=== PATIENT | female | born 1955 | race Caucasian/White ===

== ENCOUNTER → 2017-06-08 12:39 | Outpatient (CLI) | payer BC, SELFPAY | PROVIDERS: PCP Nurse Practitioner; Visit Provider Internal Medicine Cardiovascular Disease | DX: R00.2 Palpitations (principal); I11.9 Hypertensive heart disease without heart failure; G47.33 Obstructive sleep apnea (adult) (pediatric) | CPT/HCPCS: 93225; 93226 ==

== ENCOUNTER → 2017-10-25 11:35 | Outpatient (CLI) | payer MEDICARE, SELFPAY ==
[2017-10-25 13:09] LABS: Anion Gap 11.9 mEq/L (5-15); Blood Urea Nitrogen 18 mg/dL (7-18); Calcium 9.6 mg/dL (8.5-10.1); Carbon Dioxide 30 mmol/L (21.0-32.0); Chloride 105 mmol/L (98-107); Creatinine,Serum 0.77 mg/dL (0.55-1.02); Estimated Glomerular Filt Rate 76 ml/min (>60); GFR (African American) 93 ML/MIN (>60); Glucose 163 mg/dL (74-106); Potassium 4.9 mmoL/L (3.5-5.1); Sodium 142 mmol/L (136-145)
== END ==
PROVIDERS: Visit Provider Internal Medicine Cardiovascular Disease
DX: E78.2 Mixed hyperlipidemia (principal); I10 Essential (primary) hypertension; R06.09 Other forms of dyspnea
CPT/HCPCS: 36415; 80048; 83880

== ENCOUNTER 2018-08-06 10:52 | Outpatient (RCR) | payer MEDICARE, SELFPAY | END 2018-08-06 10:55 | disposition home or self-care (01) | LOC: PT 10:52 | DX: M96.1 Postlaminectomy syndrome, not elsewhere classified (principal) ==

== ENCOUNTER 2018-10-07 10:00 | Outpatient (RCR) | payer MEDICARE, SELFPAY | END 2018-10-07 10:05 | disposition home or self-care (01) | LOC: PT 10:00 | DX: M96.1 Postlaminectomy syndrome, not elsewhere classified (principal) | CPT/HCPCS: 97010; 97033; 97035; 97110; 97140; 97163 ==

== ENCOUNTER 2019-09-22 14:47 | Emergency (ER) | payer MEDICARE, SELFPAY ==
--- NOTE | 2019-09-22 15:07 | XR_ITS ---
PROCEDURE: XR TIBIA FIBULA LT 2V CLINICAL INDICATION: fall COMPARISON: No exams were available for comparison FINDINGS: There is no fracture, dislocation, or soft tissue abnormalities. IMPRESSION: No acute findings. Dictated by: Elijah Lama 09/22/2019 16:03 Electronically signed by Elijah Lama in [place] 09/22/2019 16:03
--- NOTE | 2019-09-22 15:07 | XR_ITS ---
PROCEDURE: XR ANKLE LT MIN 3V CLINICAL INDICATION: fall COMPARISON: No exams were available for comparison FINDINGS: There are several punctate curvilinear bone chips within the soft tissues distal to the fibula. Ankle mortise is intact. There is soft tissue edema overlying the lateral malleolus.. Prominent calcaneal spurs are noted. IMPRESSION: Probable subacute avulsion fractures from the tip of the fibula with overlying soft tissue edema Dictated by: Elijah Lama 09/22/2019 16:02 Electronically signed by Elijah Lama in [place] 09/22/2019 16:02
[2019-09-22 15:10] VITALS: BP 138/72; PULSE 76; RESP 18; TEMP 36.8; O2SAT 96; BMI 32.1
--- NOTE | 2019-09-22 15:18 | HMH.EDUTC ---
[facility] [place] Disposition Clinical Impression: Avulsion fracture of ankle Qualifiers: Encounter type: initial encounter Fracture type: closed Laterality: left Qualified Code(s): S82.892A - Other fracture of left lower leg, initial encounter for closed fracture Disposition: Home, Self-Care Condition on Discharge: Good Instructions: How to Choose and Use a Walker, DI for Avulsion Fracture, How To Perform RICE (Rest, Ice, Compress, Elevate) Additional Instructions: *No weight bearing Use walker to ambulate and get around *RICE, Rest the extremity, Ice 15-20 minutes 3-4 times daily, Compress- wear the iain wrap as discussed as much as possible to help reduce swelling and pain, Elevate the extremity when at rest *Iain wrap/Walking boot is for support and help control swelling, use it except in the shower. Be sure that is not to tight but not to loose either *Elevate when resting *Ibuprofen every 6-8 hours as needed for pain an inflammation. If need something more can take Tylenol in between doses of Ibuprofen to help Immediately follow up with your family doctor for new or worsening of symptoms, or no noticeable improvement over the next 3-5 days Follow up [address] Han in her office in the [facility] on SundaySeptember 28 at 1540 Follow up with family doctor if needed Straight to ER if any life threatening symptoms Referrals: Provider,Referral, [Primary Care Provider] - Chandni Han DPM [Staff Physician] - 09/29/19 3:40 pm Time of Disposition: 16:05 Medical Decision Making - Abrahan Inquiry Pt receiving controlled substance: No bArahan was queried for this patient: No Vital Signs: 09/22/19 15:10 Temperature 98.3 F Temperature Source Oral Pulse Rate [Radial] 76 Respiratory Rate 18 Blood Pressure [Right Arm] 138/72 Blood Pressure Mean [Right Arm] 94 Blood Pressure Source [Right Arm] Automatic Cuff Blood Pressure Position [Right Arm] Sitting 02 Sat by Pulse Oximetry 96 Oxygen Delivery Method Room Air Orders (Tests/Meds): ORDERS Category Date Time Status Ankle XR - Left minimum 3 Views [XR ankle LT min 3V] Exams 09/22/19 15:07 Taken Stat XR tibia fibula LT 2V Stat Exams 09/22/19 15:07 Taken - Radiology Data #1 Image(s): Ankle Image Reviewed: Yes I reviewed the patient's radiology image Avulsion fracture of lateral malleous #2 Image(s): Tib/Fib Image Reviewed: Yes I reviewed the patient's radiology image Preliminary Findings: No Fracture Seen - Physician Consults Physician Consulted: Emely Time: 15:39 Reason -: Podiatry Eval/Care Comment/Response: Spoke with Kimberly Han office and Dr Han viewed xray and agreed with avulsion fx of left lateral malleous, advised place in walking boot, crutches/walker no weight bearing and they would see her in the office on SundaySeptember 28 at 1540 [facility] [place] HPI - General Stated complaint: ao left foot fall 2:30 09/22/19 Time Seen by Provider: 09/22/19 15:18 Mode of Arrival: Wheelchair Source of Information: Patient Limitations: No Limitations Description of Symptoms (Recalled from Triage Doc. by RN): Stepped in a hole and hurt left ankle HEENT Symptoms (Recalled from RN notes): No Resp Symptoms (Recalled from RN notes): No Skin Symptoms (Recalled from RN notes): No MS Symptoms (Recalled from RN notes): Yes Functional Status (Recalled from RN notes): wnl - History of Present Illness Provider Complaint: [place] and twisted her left ankle and fell States that she felt something pop in her ankle and when she fell she got some scratches on her right leg States that pain is in her left ankle with a large knot on it and lower leg so she came in to get checked Denies any other injury - Related Data Home Medications Medication Instructions Recorded Confirmed tramadol 50 mg tablet 50 mg PO TID tab 04/04/17 08/07/19 trazodone 50 mg tablet 50 mg PO QHS
[2019-09-22 16:09] VITALS: BP 138/72; PULSE 76; RESP 18; TEMP 36.8; O2SAT 96
== END 2019-09-22 16:10 | disposition home or self-care (01) ==
PROVIDERS: Emergency Provider Nurse Practitioner
DX: S98.01 Complete traumatic amputation of foot at ankle level (principal); W17.2XXA Fall into hole, initial encounter; Y92.89 Other specified places as the place of occurrence of the external cause; E11.9 Type 2 diabetes mellitus without complications; E78.5 Hyperlipidemia, unspecified; I10 Essential (primary) hypertension; Z90.79 Acquired absence of other genital organ(s); Z88.0 Allergy status to penicillin; Z88.8 Allergy status to other drugs, medicaments and biological substances
CPT/HCPCS: 29515; 73590; 73610; 99201; 99203

== ENCOUNTER → 2019-10-27 11:08 | Outpatient (CLI) | payer MEDICARE, SELFPAY ==
--- NOTE | 2019-10-27 11:15 | XR_ITS ---
PROCEDURE: XR ANKLE WT BEARING LT MIN 3V CLINICAL INDICATION: fracture follow up COMPARISON: XR ANKLE LT MIN 3V from 09/22/2019 FINDINGS: There is a nondisplaced avulsion fracture involving the tip of the lateral malleolus not significantly changed IMPRESSION: No change nondisplaced fracture at the tip of the lateral malleolus with good alignment Dictated by: Cem Murillo MD 10/27/2019 23:17 Electronically signed by Cem Murillo MD in [place] 10/27/2019 23:17
== END ==
PROVIDERS: PCP Nurse Practitioner; Visit Provider Podiatrist
DX: T14.8XXA Other injury of unspecified body region, initial encounter; S82.832A Other fracture of upper and lower end of left fibula, initial encounter for closed fracture
CPT/HCPCS: 73610

== ENCOUNTER → 2019-12-29 11:44 | Outpatient (CLI) | payer MEDICARE, SELFPAY ==
--- NOTE | 2019-12-29 11:48 | XR_ITS ---
PROCEDURE: XR FOOT WT BEARING LT 3V CLINICAL INDICATION: pain COMPARISON: No exams were available for comparison FINDINGS: There is diffuse osteopenia. There is some cortical thickening involving the proximal aspect of the 2nd metatarsal medially nonspecific but could be seen with an old fracture. There is a type 1 os navicularis. There is a small calcaneal spur and there are enthesophytes at the Achilles insertion. Other findings:None. IMPRESSION: Diffuse osteopenia. Possible old fracture at the 2nd metatarsal among other nonacute findings Dictated by: Cem Murillo MD 12/29/2019 14:41 Cem Murillo MD in [place] 12/29/2019 14:43
--- NOTE | 2019-12-29 11:48 | XR_ITS ---
PROCEDURE: XR ANKLE WT BEARING LT MIN 3V CLINICAL INDICATION: pain, fracture follow up COMPARISON: CR XR ANKLE LT MIN 3V from 09/22/2019 CR XR ANKLE WT BEARING LT MIN 3V from 10/27/2019 FINDINGS: Avulsion fractures present at the tip of the lateral malleolus nondisplaced and not significantly changed. There is diffuse osteopenia. IMPRESSION: No change avulsion fracture at the tip of the lateral malleolus Dictated by: Cem Murillo MD 12/29/2019 14:42 Cem Murillo MD in [place] 12/29/2019 14:42
== END ==
PROVIDERS: PCP Nurse Practitioner; Visit Provider Nurse Practitioner
DX: M25.572 Pain in left ankle and joints of left foot (principal)
CPT/HCPCS: 73610; 73630

== ENCOUNTER 2020-02-19 09:00 | Outpatient (RCR) | payer MEDICARE, SELFPAY | END 2020-02-19 09:05 | disposition home or self-care (01) | LOC: PT 09:00 | PROVIDERS: PCP Nurse Practitioner; Visit Provider Neurological Surgery | DX: D43.4 Neoplasm of uncertain behavior of spinal cord (principal); M54.5 Low back pain; R26.9 Unspecified abnormalities of gait and mobility | CPT/HCPCS: 97010; 97014; 97033; 97035; 97110; 97112; 97140; 97163; 97164; 97760; G0283 ==

== ENCOUNTER 2020-02-19 09:00 | Outpatient (RCR) | payer MEDICARE, SELFPAY ==
--- NOTE | 2019-11-10 15:36 | HMH.PTOPEV ---
PT Outpatient Evaluation Rehab PT Outpatient Evaluation Start: 11/10/19 15:21 Freq: Status: Active Protocol: Document 11/10/19 15:26 AZALE (Rec: 11/10/19 15:36 AZAEL [id number]) Electronically Signed By Kameron Vo, PT 11/10/19 15:26 Outpatient Therapy Subjective History Subjective History Pt presents s/p L lateral malleolus fx (avulsion fx.) cuased by a fall on 09/22/19. Pt reports some lingering L ankle soreness, weakness, and swelling. Pt also reports lumbar spine issue, 'makes my whole left leg hurt and weak. 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 I'm radha to be walking'. Chief Complaint Pain,Swelling,Paresthesia, Weakness Symptom Type Ache,Dull Symptoms Relieved By Rest/Positioning,Ice Symptoms Aggravated By Standing,Walking Prior Functional Limitations Housework,Standing,Walking, Stairs Current Functional Limitations Housework,Standing,Walking, Stairs Symptom Description Intermittent Level of pain today (0-10) 4 Pain scale - at its best (0-10) 4 Pain scale - at its worst (0-10) 6 Ankle/Foot Eval Gait Observation General Gait Pattern Observation Antalgic Gait,Wide Based Gait, Shuffling Step Assistive Device Ambulation Assistive Device Straight Cane Palpation Tenderness left Ankle/Foot Palpation Findings Tenderness Ankle/Foot Palpation Overall Comment 3/4 lateral malleolus, sinus tarsi ROM Ankle/Foot Dorsiflexion w/Knee Flexed +5 Active Range of Motion (degrees) Ankle/Foot Dorsiflexion W/Knee Flexed 0-10 Passive Range Motion (degrees) Ankle/Foot Plantar Flexion Active Range 5-30 of Motion (degrees) Ankle/Foot Plantar Flexion Passive Range 0-30 of Motion (degrees) Ankle/Foot Eversion Active Range of 0-7 Motion (degrees) Ankle/Foot Eversion Passive Range of 0-15 Motion (degrees) Ankle/Foot Inversion Active Range of 0-35 Motion (degrees) Ankle/Foot Inversion Passive Range of 0-40 Motion (degrees) Ankle/Foot ROM Limitations Soft Tissue Tightness MMT Ankle Dorsiflexion Strength Grade 3- Fair- Ankle Plantarflexion Strength Grade 3- Fair- Foot Eversion Strength Grade 3- Fair- Foot Inversion Strength Grade 3- Fair- Outpatient Therapy Assessment Impairments Problems/Impairm
--- NOTE | 2019-12-12 10:44 | HMH.RHREAS ---
Rehab Reassessment Rehab OP Re-assessment Start: 12/12/19 09:58 Freq: Status: Active Protocol: Document 12/12/19 09:59 AZAEL (Rec: 12/12/19 10:44 AZAEL [id number]) Electronically Signed By Kameron Vo, PT 12/12/19 09:59 Rehab Re-assessment Subjective Subjective Pt reports improved L ankle/ foot pain 0/10 on VAS @rest, and 3/10 pain on VAS w/wt. bearing, and reports 40% improvement overall since I Eval Objective Objective Notes AROM: L ANKLE DF 0-5, PF 0-30, INV 0-35, EVR 0-14 MMT: L ANKLE DF 4/5, PF 4-/5, EVR 4-/5, INV 4-/5 TTP: LAT MALL. L 2/4, SINUS TARSI 2/4 GAIT: LEVEL TERRAIN WFL Assessment Progress Assessment Progressing as Expected Assessment Notes PT W/IMPROVED ROM, STRENGTH, AND TTP Patient goals met STG'S 12/09 LTG'S 06/10 Goals Not Met LTG'S 11/10 Plan Plan PT TO CONT. W/SKILLED P.T. TO MAKE FURTHER IMPROVEMENTS IN ROM, STRENGTH, AND TTP TO ALLOW FOR OPTIMAL FUNCTION Frequency of Therapy 1-2X/WK Duration of therapy 3-4WKS Time and Billing Re-Eval Time 15 Re-Eval Billing Units 1 PHYSICIAN CERTIFICATION: I certify the specified therapy services for Gertrudis Gonzalez are required, authorized, and reviewed every 30 days.
--- NOTE | 2020-01-15 10:07 | HMH.RHREAS ---
Rehab Reassessment Rehab OP Re-assessment Start: 12/12/19 09:58 Freq: Status: Active Protocol: Document 01/15/20 10:00 STEFANIEAGATA (Rec: 01/15/20 10:06 [email or web address] [id number]) Electronically Signed By Kameron Vo, PT 01/15/20 10:00 Rehab Re-assessment Subjective Subjective Pt reports improved L ankle/ foot pain 0/10 on VAS @rest, and 3-4/10 pain on VAS w/wt. bearing, and reports 60% improvement overall since I Eval Objective Objective Notes AROM: L ANKLE DF 0-20, PF 0-33 , INV 0-40, EVR 0-20 MMT: L ANKLE DF 4-4+/5, PF 4-/ 5, EVR 4-/5, INV 4-/5 TTP: LAT MALL. L 2/4, SINUS TARSI 2/4 GAIT: LEVEL TERRAIN WFL Assessment Progress Assessment Slower Than Expected Assessment Notes PT W/SLIGHT IMPROVEMENTS IN STRENGTH, AND MARKED IMPROVEMENT IN ROM Patient goals met STG'S 12/09 LTG'S 08/10 Goals Not Met LTG'S 09/10 Plan Plan PT TO CONT. W/SKILLED P.T. TO MAKE FURTHER IMPROVEMENTS IN ROM, STRENGTH, AND TTP TO ALLOW FOR OPTIMAL FUNCTION Frequency of Therapy 1-2X/WK Duration of therapy 2-4WKS Time and Billing Re-Eval Time 15 Re-Eval Billing Units 0 PHYSICIAN CERTIFICATION: I certify the specified therapy services for Gertrudis Gonzalez are required, authorized, and reviewed every 30 days.
== END 2020-02-19 09:05 | disposition home or self-care (01) ==
LOC: PT 09:00
PROVIDERS: PCP Nurse Practitioner; Visit Provider Podiatrist
DX: S82.892D Other fracture of left lower leg, subsequent encounter for closed fracture with routine healing (principal); M25.472 Effusion, left ankle
CPT/HCPCS: 97010; 97014; 97110; 97112; 97140; 97163; 97164; G0283

== ENCOUNTER 2020-02-28 11:06 | Emergency (ER) | payer MEDICARE, SELFPAY ==
[2020-02-28 11:45] VITALS: BP 156/79; PULSE 82; RESP 18; TEMP 36.7; O2SAT 97; BMI 32.3
--- NOTE | 2020-02-28 11:48 | HMH.EDUTC ---
[facility] [place] Disposition Clinical Impression: Exposure to COVID-19 virus Disposition: Home, Self-Care Condition on Discharge: Good Instructions: Preventing the Spread of Coronavirus Discharge Instructions, DI for Nasal Congestion Additional Instructions: *Nasal saline and bulb syringe or nose larry to remove nasal drainage and help with nasal congestion. Hard to eat, drink, or sleep with nasal congestion so important to keep nose cleaned out. *Monitor Temp, Over the counter Motrin or Tylenol as directed/as needed Tylenol every 4 hours and Motrin every 6 hours (as long as your family doctor has told you that you can take it) for fever or pain. and straight to ER if unable to lower temp less than 101.0 after medication given *Warm salt water gargles may help to soothe the throat *Throat Lozenges *Warm fluids like tea with honey may help to soothe the throat *Sleep elevated *Humidifier/Vaporizer Follow up IMMEDIATELY for new or worsening symptoms or no Noticeable improvement over the next 48-72 hours. 911 for difficulty breathing or swallowing You was tested for today for COVID19 your test result should be back in the next 24-48 hours, you may call to the [facility] later today or tomorrow to see if your test results are back and the result [phone] [facility] hours are 9am-9pm You was given a handout with instructions for Self Quarantine and Self isolation for while you wait on test results and what to do if they are positive If you are positive the Health Dept will be contacting you also Referrals: Ev Augustin APRN [Primary Care Provider] - As needed Time of Disposition: 11:55 Medical Decision Making - Abrahan Inquiry Pt receiving controlled substance: No Abrahan was queried for this patient: No Vital Signs: 02/28/20 11:45 Temperature 98.0 F Temperature Source Oral Pulse Rate [Radial] 82 Respiratory Rate 18 Blood Pressure [Right Arm] 156/79 H Blood Pressure Mean [Right Arm] 104 Blood Pressure Source [Right Arm] Automatic Cuff Blood Pressure Position [Right Arm] Sitting 02 Sat by Pulse Oximetry 97 Oxygen Delivery Method Room Air Orders (Tests/Meds): ORDERS Category Date Time Status Covid-19 Nasal PCR ([facility]) Routine Lab 02/28/20 11:45 Ordered [facility] [place] HPI - General Stated complaint: covid test Time Seen by Provider: 02/28/20 11:50 Mode of Arrival: Ambulatory Source of Information: Patient Limitations: No Limitations Description of Symptoms (Recalled from Triage Doc. by RN): covid test, runny nose HEENT Symptoms (Recalled from RN notes): Yes Resp Symptoms (Recalled from RN notes): No Skin Symptoms (Recalled from RN notes): No MS Symptoms (Recalled from RN notes): No Functional Status (Recalled from RN notes): wnl - History of Present Illness Provider Complaint: Patient state that her recently tested positive for COVID States that she has been having some nasal congestion and runny nose but no other symptoms and she wanted to come in and get tested - Related Data Home Medications Medication Instructions Recorded Confirmed tramadol 50 mg tablet 50 mg PO TID tab 04/04/17 02/19/20 trazodone 50 mg tablet 50 mg PO QHS 04/04/17 02/19/20 empagliflozin 25 mg tablet 25 mg PO DAILY 07/26/18 02/19/20 cyclobenzaprine 10 mg tablet 10 mg PO Q8H PRN tab 08/07/19 02/19/20 glimepiride 4 mg tablet 2 mg PO DAILY tab 08/07/19 02/19/20 omeprazole 20 mg capsule,delayed 40 mg PO DAILY cap 08/07/19 02/19/20 release plecanatide 3 mg tablet 3 mg PO DAILY tab 08/07/19 02/19/20 pregabalin 100 mg capsule 100 mg PO Q8H PRN cap 08/07/19 02/19/20 sitagliptin 100 mg tablet 100 mg PO DAILY tab 08/07/19 02/19/20 topiramate 50 mg capsule,extended 50 mg PO BID PRN cap 08/07/19 02/19/20 release 24 hr bethanechol chloride 50 mg tablet 50 mg PO tab 09/29/19 02/19/20 Previous Rx's Medication Instructions Recorded ropinirole 1 mg tablet 1 mg PO QHS #90 tab 01/09/19 diclofenac sodium 1 % topical gel 4 g TOPICAL QID PRN #
[2020-02-28 12:01] VITALS: BP 156/79; PULSE 82; RESP 18; TEMP 36.7; O2SAT 97
--- NOTE | 2020-02-28 17:09 | PC.NURSE ---
Patient notified of positive COVID results. educated on quarantine and treatment of symptoms if they appear.
== END 2020-02-28 12:02 | disposition home or self-care (01) ==
PROVIDERS: Emergency Provider Nurse Practitioner; PCP Nurse Practitioner
DX: U07.1 COVID-19 (principal); E11.9 Type 2 diabetes mellitus without complications; I10 Essential (primary) hypertension; Z79.899 Other long term (current) drug therapy; Z88.0 Allergy status to penicillin; Z88.8 Allergy status to other drugs, medicaments and biological substances
CPT/HCPCS: G0463; 99201; U0003

== ENCOUNTER → 2020-09-15 07:43 | Outpatient (CLI) | payer MEDICARE, SELFPAY ==
--- NOTE | 2020-09-15 07:57 | XR_ITS ---
PROCEDURE: XR FOOT WT BEARING LT 3V CLINICAL INDICATION: increased pain COMPARISON: CR XR FOOT WT BEARING LT 3V from 12/29/2019 FINDINGS: Old healed fracture base of 2nd metatarsal again noted. Diffuse osteopenia. No acute fracture or dislocation. Moderate plantar and posterior calcaneal spurs. IMPRESSION: No acute fracture or dislocation. Old healed fracture base of 2nd metatarsal again noted. Moderate plantar and posterior calcaneal spurs. Dictated by: Pj Trammell MD 09/15/2020 09:20 Pj Trammell MD in [place] 09/15/2020 09:20
== END ==
PROVIDERS: PCP Nurse Practitioner; Visit Provider Podiatrist
DX: M21.372 Foot drop, left foot (principal); M25.372 Other instability, left ankle; M79.672 Pain in left foot; M25.572 Pain in left ankle and joints of left foot
CPT/HCPCS: 73630

== ENCOUNTER 2020-10-12 09:55 | Outpatient (RCR) | payer MEDICARE, SELFPAY ==
--- NOTE | 2020-10-12 10:57 | HMH.PTOPEV ---
PT Outpatient Evaluation Rehab PT Outpatient Evaluation Start: 10/12/20 10:38 Freq: Status: Active Protocol: Document 10/12/20 10:38 NORM (Rec: 10/12/20 10:56 NORM [id number]) Electronically Signed By Pavel Aviles, PT 10/12/20 10:38 Outpatient Therapy Subjective History Subjective History Patient is a 64 year old female presenting to outpatient Pt with reports of L foot/ankle pain starting approximately 1 year ago after inversion ankle sprain/ fracture. 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 Patient referred for L ankle instability and plantar fasciitis. Comorbidities include hx of LS turmor excision, diabetes, HTN and gastroparesis. Chief Complaint Pain,Stiff,Swelling Symptom Type Throb Symptoms Relieved By Rest/Positioning,Heat,Ice, Prescription Meds,Elevation Current Functional Limitations Housework,Standing,Recreation Activity,Walking,Stairs, Balance Symptom Description Constant but Variable Level of pain today (0-10) 4 Pain scale - at its best (0-10) 3 Pain scale - at its worst (0-10) 7 Ankle/Foot Eval Gait Observation General Gait Pattern Observation Antalgic Gait,Decrease Weight Bear (L) Assistive Device Ambulation Assistive Device None Palpation Tenderness left Ankle/Foot Palpation Findings Tenderness Ankle/Foot Palpation Overall Comment M/L malleolus, ATFL 3/4 ROM Ankle/Foot Dorsiflexion w/Knee Extended -4 Active Range Motion (degrees) Ankle/Foot Dorsiflexion w/Knee Extended 5 Passive Range (degrees) Ankle/Foot Plantar Flexion Active Range 50 of Motion (degrees) Ankle/Foot Plantar Flexion Passive Range 55 of Motion (degrees) Ankle/Foot Eversion Active Range of 14 Motion (degrees) Ankle/Foot Eversion Passive Range of 30 Motion (degrees) Ankle/Foot Inversion Active Range of 16 Motion (degrees) Ankle/Foot Inversion Passive Range of 24 Motion (degrees) Great Toe ROM Reason Not Measured Within Functional Limits Accessory Movements Ankle Accessory Movements that Elicit [place] Dorsal [place]us Symptoms Ventral [place] MMT left Ankle Dorsiflexion Strength Gra
== END 2020-10-12 09:59 | disposition home or self-care (01) ==
LOC: PT 09:55
PROVIDERS: PCP Nurse Practitioner; Visit Provider Nurse Practitioner
DX: M25.372 Other instability, left ankle (principal)
CPT/HCPCS: 97163

== ENCOUNTER → 2021-01-04 10:13 | Outpatient (CLI) | payer SELFPAY ==
--- NOTE | 2021-01-04 10:13 | CT_ITS ---
PROCEDURE: CT HEART W CALCIUM SCORE CLINICAL HISTORY: hypertension COMPARISON: No exams were available for comparison TECHNIQUE: Axial images obtained with sagittal and coronal reformats. All CT scans at the facility use one or more dose reduction, viz: automated exposure control, ma/kV adjustment per patient size (including targeted exams where dose is matched to indication, i.e. head), or iterative reconstruction technique. FINDINGS: Coronary artery calcium score is 3 L1. Moderate calcific plaque burden with high cardiovascular disease risk. Aortic valve calcifications also noted. There is some mitral valve annular calcification present as well. There is evidence of old granulomatous disease. A noncalcified nodules present in the right lower lobe posteriorly measuring 6 mm. 3 mm subpleural nodules present in the left lower lobe posteriorly. An additional 2 mm nodules present in the left lower lobe posteriorly noncalcified nodules present in the lingula at 5 mm. IMPRESSION: Moderate calcific plaque burden with high cardiovascular disease risk Mild aortic valve and mitral valve annular calcification Small bilateral pulmonary nodules measuring up to 6 mm in the right lower lobe. Consider six-month chest CT to confirm stability Dictated by: Cem Murillo MD 01/04/2021 18:33 Cem Murillo MD in [facility] 01/04/2021 18:33
== END ==
PROVIDERS: PCP Nurse Practitioner; Visit Provider Internal Medicine Cardiovascular Disease
DX: Z13.6 Encounter for screening for cardiovascular disorders (principal)
CPT/HCPCS: 75571

== ENCOUNTER → 2021-01-04 10:30 | Outpatient (CLI) | payer MEDICARE, SELFPAY ==
--- NOTE | 2021-01-04 | CA_ITS ---
APPROVED REPORT Exam: Pharmacologic Technologist: Maria Del Carmen Mendoza Ht: 5 ft 2 in Wt: 190 lbs BSA: 1.87 m2 HR: 70 bpm BP: 138/73 mmHg Indications: SOA Medical History Medications: Omeprazole,,,,, Glipizide,,,,, Ropinirole,,,,, TopIRAMATE,,,,, Tramadol,,,,, Diclofenac,,,,, BisOPROLOL,,,,, LanTUS,,,,, Cyclobenzaprine,,,,, Trazodone,,,,, Pregabalin,,,,, RoSUVASTATIN,,,,, Stress Test Details Test: LEXISCAN HR Resting HR: 72 bpm Max Heart Rate (APMHR): 156.978385 bpm Max HR Achieved: 91 bpm Target HR (85% APMHR): 132.336209 bpm % of APMHR: 58.33 Recovery HR: 81 bpm BP Resting BP: 138.0/73.0 mmHg Max BP: 147.0/74.0 mmHg Recovery BP: 137.0/69.0 mmHg ECG Resting ECG: Normal sinus rhythm, right axis deviation Clinical Exercise duration: 04:00 min Highest Stage Achieved: Exercise capacity: 1.0 METs Stress ECG Conclusion Symptoms: Mild shortness of air, stomach cramps, lightheaded. No chest pain. Arrhythmias/Ectopy: None ST-T Changes: No significant changes. Conclusion: Unremarkable Lexiscan stress. Myoview images reported separately. Test Summary REST . . . . . . . Resting REST 04:18 . . 72 . 138/ 73 . . Stage 1 . . . . . . . Myoview Injected Stage 1 01:00 . . 89 . . . . Stage 2 01:00 . . 91 . 147/ 74 . . Stage 3 01:00 . . 86 . 144/ 72 . . Stage 4 01:00 . . 86 . 136/ 67 . Stop exercise at 04:00 RECOVERY 01:00 . . 84 . . . . RECOVERY 02:00 . . 84 . 140/ 71 . . RECOVERY 03:00 . . 81 . 137/ 69 . . RECOVERY 03:32 . . 80 . 137/ 69 . . Electronically signed by : Cheko Boucher MD 01/04/2021 22:31:00
--- NOTE | 2021-01-04 10:30 | NM_ITS ---
APPROVED REPORT Exam: Nuclear Stress Test Indication: short of breath..palpitations..fatigue Patient Location: Outpatient Stress Tech: Maria Del Carmen Mendoza NM Tech:Heather Oropeza ARMIN RT(R)(N) Ht: 5 ft 2 in Wt: 189 lbs HR: 70 bpm BP: 138/73 mmHg BSA: 1.87 m2 BMI: 34.5 History: short of breath..palpitations..fatigue Procedure: Patient received a 0.4 mg of intravenous Lexiscan, resting heart rate 70 bpm, resting blood pressure 137/73 mmHg, with Lexiscan maximum heart rate achived was 91 bpm which is Less than 85 % of the maximum predicted heart rate and blood pressure was 147/74 mmHg. With Lexiscan, patient denied any complaint of chest pain. Electrocardiogram Resting electrocardiogram showed sinus rhythm, with Lexiscan there is less than 1.[address] segment depression noted from the baseline EKG. The EKG portion of the Lexiscan is nondiagnostic. Cardiac Stress and Resting SPECT Images: Cardiac Stress and Resting SPECT images were obtained using technetium 99m Myoview 32.9 mCi stress and 10.33 mCi at rest. Gated SPECT for analysis of segmental wall motion and calculation of the ejection fraction also done. Prone images were also obtained. Cardiac stress and rest SPECT images show uniform myocardial activity without segmental perfusion abnormality, computer derived ejection fraction is 65% with no regional wall motion abnormality, right ventricle is normal size and contractility. Conclusion: 1. The EKG portion of the Lexiscan is nondiagnostic. 2. No scintigraphic evidence of reversible ischemia seen, computer derived ejection fraction is 65% with no regional wall motion abnormality, right ventricle is normal size and contractility. 3. Normal Lexiscan Myoview study. Electronically signed by : Cheko Boucher MD 01/04/2021 22:39:09
--- NOTE | 2021-01-04 11:02 | CA_ITS ---
APPROVED REPORT EXAM: Comprehensive 2D, Doppler, and color-flow Echocardiogram Elocution Teacher: Mel Bland RVT Ht: 5 ft 2 in Wt: 190lbs BSA: 1.87 BP: 188/67 mmHg Indications: SOA,CAD,SKELTON 2D Dimensions LVOT 2.08 cm (M/F) 1.5-2.5 LA Volume 33.40 mL LA Volume Index 17.86 mL/m2 (M/F) 16-34 M-Mode Dimensions RVDd 3.01 cm (0.9-2.6) LA Diam 4.33 cm (1.9-4.0) LVDd 4.18 cm (3.5-5.7) Ao Diam 2.92 cm (2.0-3.7) LVDs 2.81 cm (3.5-5.7) IVSd 1.00 cm (0.6-1.1) PWd 0.72 cm (0.6-1.1) EF (Teich) 61.60% FS 32.80% EDV (Teich) 77.70 mL TAPSE 2.56 (<1.7) ESV (Teich) 29.80 mL LV Diastology E Decel Time 150.00 (160-240 msec) E/A Ratio 1.3 MED E' 5.10 (< 7 cm/sec) E'/MED E' Ratio 21.49 (>14) LAT E' 8.60 (<10 cm/sec) E/LAT E' Ratio 12.74 (>14) Mitral Valve MV E Max Henrique. 110.00 (40-130 cm/s) MV A Velocity 85.00 (40-130 cm/s) E/A Ratio 1.29 MV Decel. Time 150.00 (160-240 ms) MV PHT 44.00 ms Pulmonary Valve PV Peak Velocity 82.00 (50-150 cm/s) Left Ventricle Left atrium is mildly enlarged, left ventricle is normal size, mild concentric left ventricular hypertrophy, visually estimated ejection fraction 50% with no regional wall motion abnormality, grade 2 diastolic dysfunction seen with tissue Doppler evidence of raise left atrial pressure. Right Ventricle Right atrium and right ventricle are normal size and contractility. Aortic Valve Aortic valve is minimally thickened and fibrosed, there is no aortic stenosis or aortic insufficiency. Mitral Valve Mitral valve leaflets are minimally thickened, there is no mitral stenosis, there is mild mitral regurgitation. Tricuspid Valve Tricuspid valve grossly normal, there is mild tricuspid regurgitation, tricuspid regurgitation jet velocity is inadequate for calculation of the right ventricular systolic pressure. Pulmonic Valve Pulmonic valve is poorly visualized. Great Vessels Aortic root is normal size. Inferior vena cava is normal size with normal inspiratory collapse. Pericardium No significant pericardial effusion noted. Conclusion 1. Mildly enlarged left atrium, normal left ventricular size, mild concentric left ventricular hypertrophy, visually estimated ejection fraction 50% with no regional wall motion abnormality, grade 2 diastolic dysfunction seen with tissue Doppler evidence of raise left atrial pressure. 2. Mild mitral and tricuspid regurgitation. 3. No significant pericardial effusion noted. 4. Inferior vena cava is mildly enlarged with normal inspiratory collapse. Electronically signed by : Cheko Boucher MD 01/04/2021 22:14:33
== END ==
PROVIDERS: PCP Nurse Practitioner; Visit Provider Internal Medicine Cardiovascular Disease
DX: R06.09 Other forms of dyspnea (principal); I50.30 Unspecified diastolic (congestive) heart failure
CPT/HCPCS: 78452; 93017; 93306; A9502; J2785

== ENCOUNTER → 2021-01-27 15:02 | Outpatient (CLI) | payer MEDICARE, SELFPAY ==
[2021-01-27 16:16] LABS: Anion Gap 14.3 mEq/L (5-15); Blood Urea Nitrogen 14 mg/dl (7-17); Calcium 9.9 mg/dl (8.4-10.2); Carbon Dioxide 28 mmol/L (22.0-30.0); Chloride 102 mmol/L (98-107); Estimated Glomerular Filt Rate 124 ml/min (>60); GFR (African American) 150 ML/MIN (>60); Glucose 133 mg/dl (74-100); Potassium 4.3 mmoL/L (3.5-5.1); Sodium 140 mmol/L (136-145)
[2021-01-27 16:24] LABS: NT Pro Brain Natriuretic Pep. 47.2 pg/mL (0-125)
== END ==
PROVIDERS: Visit Provider Internal Medicine Cardiovascular Disease
DX: E78.2 Mixed hyperlipidemia (principal); G47.33 Obstructive sleep apnea (adult) (pediatric); I11.9 Hypertensive heart disease without heart failure; R06.00 Dyspnea, unspecified; R06.02 Shortness of breath
CPT/HCPCS: 36415; 80048; 83880

== ENCOUNTER → 2022-04-24 16:36 | Outpatient (CLI) | payer MEDICARE, SELFPAY ==
--- NOTE | 2022-04-24 16:42 | XR_ITS ---
PROCEDURE INFORMATION: Exam: XR Chest Exam date and time: 04/24/2022 4:44 PM Age: 66 years old Clinical indication: Cough; Additional info: Cough, dyspnea TECHNIQUE: Imaging protocol: Radiologic exam of the chest. Views: 2 views. COMPARISON: CR CXR CHEST(2 VIEWS-NOT PORTABLE) 12/12/2016 11:56 AM FINDINGS: Lungs: Patchy opacities at the left lung base. Pleural spaces: Unremarkable. No pleural effusion. No pneumothorax. Heart/Mediastinum: Unremarkable. No cardiomegaly. Bones/joints: Unremarkable. IMPRESSION: Patchy opacities at the left lung base may reflect developing pneumonitis or atelectasis.
== END ==
PROVIDERS: PCP Family Medicine; Visit Provider Student in an Organized Health Care Education/Training Program
DX: R05.9 Cough, unspecified (principal); R06.00 Dyspnea, unspecified
CPT/HCPCS: 71046

== ENCOUNTER → 2022-05-04 10:09 | Outpatient (CLI) | payer MEDICARE, SELFPAY ==
[2022-05-04 10:58] LABS: Basophils # 0.2 K/mm3 (0-0.2); Basophils % 2.6 % (0.1-2.0); Eosinophils # 0.2 K/mm3 (0.0-0.4); Eosinophils % 2.5 % (0.1-12.0); Hematocrit 48.1 % (37.0-47.0); Hemoglobin 15.1 g/dL (12.2-16.2); Lymphocytes # 2.2 K/mm3 (0.7-4.5); Lymphocytes % 28.1 % (10-50); Mean Corpuscular HGB Conc 31.4 g/dL (31.8-35.4); Mean Corpuscular Hemoglobin 28.8 pg (27.0-31.2); Mean Corpuscular Volume 91.5 fl (81-99); Mean Platelet Volume 8.3 fl (7.4-10.4); Monocytes # 0.4 K/mm3 (0.1-1.0); Monocytes % 4.5 % (1.7-9.3); Neutrophils # 4.8 K/mm3 (1.8-7.8); Neutrophils % 62.3 % (37.0-80.0); Platelet Count 353 K/mm3 (142-424); Red Blood Count 5.26 M/mm3 (4.20-5.40); Red Cell Distribution Width 13.4 % (11.5-17.5); White Blood Count 7.8 K/mm3 (4.8-10.8)
[2022-05-04 11:02] LABS: Hemoglobin A1C 8.9 % (4.0-6.0)
[2022-05-04 11:13] LABS: Alanine Aminotransferase 92 U/L (12-78); Albumin Level 3.9 g/dl (3.5-5.0); Albumin/Globulin Ratio 1.4 (1.1-1.8); Alkaline Phosphatase 134 U/L (38-126); Aspartate Amino Transferase 54 U/L (14-36); Bilirubin,Total 0.7 mg/dl (0.2-1.3); Blood Urea Nitrogen 16 mg/dl (7-17); Calcium 8.9 mg/dl (8.4-10.2); Carbon Dioxide 32 mmol/L (22.0-30.0); Chloride 105 mmol/L (98-107); Chol/HDL Ratio 4.5 (1-3.5); Cholesterol 216 mg/dl (140-200); Estimated Glomerular Filt Rate 100 ml/min (>60); GFR (African American) 121 ML/MIN (>60); Globulin 2.7 g/dL (1.3-3.2); Glucose 131 mg/dl (74-100); HDL Cholesterol 48 mg/dl (40-60); Sodium 141 mmol/L (136-145); Total Protein,Serum 6.6 g/dl (6.3-8.2); Triglycerides 245 mg/dl (30-150); VLDL Cholesterol 49 mg/dL (0-40)
[2022-05-04 11:23] LABS: Direct LDL Cholesterol 134.61 mg/dL (100-129)
[2022-05-04 11:43] LABS: Thyroid Stimulating Hormone 4.15 uIU/mL (0.465-4.68)
== END ==
PROVIDERS: PCP Family Medicine; Visit Provider Student in an Organized Health Care Education/Training Program
DX: E11.65 Type 2 diabetes mellitus with hyperglycemia (principal); I11.9 Hypertensive heart disease without heart failure; E66.9 Obesity, unspecified; R00.2 Palpitations; Z79.4 Long term (current) use of insulin
CPT/HCPCS: 36415; 80053; 80061; 83036; 84443; 85025

== ENCOUNTER 2022-06-07 08:13 | Day surgery (SDC) | payer MEDICARE, SELFPAY ==
[2022-06-05 14:20] VITALS: BMI 34.2
[2022-06-07 09:32] VITALS: BP 173/83; PULSE 94; RESP 18; TEMP 36.2; O2SAT 95
--- NOTE | 2022-06-07 09:54 | EXP.ANES.CKL ---
[facility] Disclaimer: The information contained in this section may have been updated after the patient was seen, as this information can be updated by other users. Medical History Chest pain Dizziness Edema of lower extremity Hyperlipidemia Hypertension Hypertensive heart disease Palpitations Preoperative clearance Restless sleeper Sleep apnea Somnolence, daytime Surgical History History of back surgery History of hysterectomy Hx of elbow surgery Family History Other Family history of diabetes mellitus type II Family history of hypertension Family hx-kidney disease Social History Smoking Status: Never smoker alcohol intake: never substance use type: denies use current occupational status: disabled Travel in the last 8 weeks: None household members: spouse housing: house lives independently: Yes marital status: education level: college current occupational exposures/hazards: No caffeine: Yes special kris needs: No agree to transfusion: No do you feel safe at home: Yes victim of physical abuse: No victim of emotional abuse: No victim of sexual abuse: No would you like helpful sources: No [facility] Anesthesia Checklist Patient Identification Patient Identification: Arm Band and Verbal (Name & ) Structural Data Admitted From: Home Planned Operative Procedure/s: EGD Consent for Planned Operative Procedure(s) Verified: Yes NPO Status Verified Time NPO: 00:00 Airway Assessment C-Spine Mobility Assessed: Yes TMJ Mobility Assessed: Yes Dentition: Good Dentition Neurological Assessment Level of Consciousness: Awake Hx Seizures: No Numbness or tingling in extremities: No Anesthesia Plan Anesthesia Risk discussed: Yes Anesthesia Plan: Verified ASA Class: III Anesthesia Type: MAC
[2022-06-07 10:00] VITALS: O2SAT 95
--- NOTE | 2022-06-07 10:10 | P.PCN_ITS ---
Procedure: Date: 06/07/22 Patient Date of :: 1955 Procedure Performed:: EGD Indications:: The patient is a 66 year old who presents for EGD evaluation of dyspepsia and feeling of food sticking in epigastric area. She has a history of gastroparesis and is managed thru [facility]. She is to be evaluated soon for a possible gastric pacemaker per patient report. Performing Provider:: Delmar Abbasi MD Referring Provider:: Terrie Henry APRN Sedation:: See RN records Procedure:: The gastroscope was gently passed through the incisoral orifice into the oral cavity and under direct visualization the esophagus was intubated. The endoscope was passed down the esophagus, through the stomach, and into the duodenum. Color, texture, mucosa, and anatomy of the esophagus, stomach, and duodenum were carefully examined with the scope. Findings:: Oropharynx: normal Esophagus: normal. Empiric dilatation was performed with 54F bougie dilatation EG Junction: measured at 39 cm Cardia: small hiatal hernia, insignificant Fundus: normal Body: Minimal gastritis. Biopsy obtained Antrum: Minimal gastritis. Biopsy obtained Duodenal bulb: normal Duodenum (second and third portion): normal Impression: Minimal gastritis Small hiatal hernia Recommendations:: Await pathology results Continue omeprazole 40 mg as prescribed Gastroparesis diet [facility] Complications:: None Estimated blood obtained (mL): 0
[2022-06-07 10:14] VITALS: BP 161/81; PULSE 96; RESP 14; TEMP 36.5; O2SAT 96
[2022-06-07 10:24] VITALS: BP 155/84; PULSE 82; RESP 16; O2SAT 93
[2022-06-07 10:34] VITALS: BP 149/81; PULSE 84; RESP 17; O2SAT 92
[2022-06-07 10:44] VITALS: BP 139/81; PULSE 83; RESP 17; O2SAT 94
[2022-06-08 18:23] LABS: POC Glucose,Bedside 161 (70-110)
== END 2022-06-07 10:44 | disposition home or self-care (01) ==
PROVIDERS: PCP Family Medicine; Visit Provider Internal Medicine
PROC: 0DJ08ZZ Inspection of Upper Intestinal Tract, Via Natural or Artificial Opening Endoscopic (ICD-10-PCS; CPT 43235; principal; 2022-06-07 10:00)
DX: K21.9 Gastro-esophageal reflux disease without esophagitis (principal); R10.13 Epigastric pain; K29.70 Gastritis, unspecified, without bleeding; K44.9 Diaphragmatic hernia without obstruction or gangrene; Z79.899 Other long term (current) drug therapy; E11.9 Type 2 diabetes mellitus without complications
CPT/HCPCS: 43239; 43248; 82962; 88305

== ENCOUNTER → 2022-06-20 07:49 | Outpatient (CLI) | payer MEDICARE, SELFPAY ==
--- NOTE | 2022-06-20 07:52 | US_ITS ---
FINAL REPORT CLINICAL HISTORY: ELEVATED LIVER FUNCTION FINDINGS: RIGHT UPPER QUADRANT ULTRASOUND Sonographic images of the right upper quadrant were obtained. The pancreas is partially obscured. There is fatty infiltration of the liver. Trace sludge is seen in the gallbladder. The common duct is normal. Limited images of the right kidney are normal. IMPRESSION: Fatty liver. Trace sludge in the gallbladder. Reviewed, Interpreted and Dictated by Everett Nails MD Transcribed by Soraya Silva Authenticated and [facility]
== END ==
PROVIDERS: PCP Family Medicine; Visit Provider Nurse Practitioner
DX: R79.89 Other specified abnormal findings of blood chemistry (principal); K76.0 Fatty (change of) liver, not elsewhere classified
CPT/HCPCS: 76705

== ENCOUNTER 2023-09-20 10:21 | Outpatient (CLI) | payer MEDICARE, SELFPAY ==
[2023-09-20 10:14] LABS: Basophils # 0.2 K/mm3 (0-0.2); Basophils % 2.8 % (0.1-2.0); Eosinophils # 0.1 K/mm3 (0.0-0.4); Hematocrit 47.9 % (37.0-47.0); Hemoglobin 15.1 g/dL (12.2-16.2); Lymphocytes # 1.2 K/mm3 (0.7-4.5); Lymphocytes % 19.4 % (10-50); Mean Corpuscular HGB Conc 31.5 g/dL (31.8-35.4); Mean Corpuscular Hemoglobin 29.1 pg (27.0-31.2); Mean Corpuscular Volume 92.6 fl (81-99); Mean Platelet Volume 9.1 fl (7.4-10.4); Monocytes # 0.3 K/mm3 (0.1-1.0); Neutrophils # 4.5 K/mm3 (1.8-7.8); Neutrophils % 70.8 % (37.0-80.0); Platelet Count 320 K/mm3 (142-424); Red Blood Count 5.17 M/mm3 (4.20-5.40); Red Cell Distribution Width 13.7 % (11.5-17.5); White Blood Count 6.4 K/mm3 (4.8-10.8)
[2023-09-20 10:33] LABS: Alanine Aminotransferase 49 U/L (12-78); Albumin Level 4.4 g/dl (3.5-5.0); Albumin/Globulin Ratio 1.3 (1.1-1.8); Alkaline Phosphatase 186 U/L (38-126); Anion Gap 13.6 mEq/L (5-15); Aspartate Amino Transferase 45 U/L (14-36); Bilirubin,Total 0.6 mg/dl (0.2-1.3); Blood Urea Nitrogen 18 mg/dl (7-17); Calcium 10.4 mg/dl (8.4-10.2); Carbon Dioxide 31 mmol/L (22.0-30.0); Chloride 101 mmol/L (98-107); Chol/HDL Ratio 4.3 (1-3.5); Cholesterol 238 mg/dl (140-200); Estimated Glomerular Filt Rate 100 ml/min (>60); GFR (African American) 121 ML/MIN (>60); Globulin 3.3 g/dL (1.3-3.2); Glucose 174 mg/dl (74-100); HDL Cholesterol 55 mg/dl (40-60); Potassium 4.6 mmoL/L (3.5-5.1); Sodium 141 mmol/L (136-145); Total Protein,Serum 7.7 g/dl (6.3-8.2); Triglycerides 195 mg/dl (30-150); Uric Acid 2.8 mg/dl (2.5-6.2); VLDL Cholesterol 39 mg/dL (0-40)
[2023-09-20 10:39] LABS: Hemoglobin A1C 8.1 % (4.0-6.0)
[2023-09-20 10:44] LABS: Direct LDL Cholesterol 149.66 mg/dL (100-129)
[2023-09-20 10:50] LABS: 25-OH Vitamin D, Total 88.3 ng/mL (30-100)
[2023-09-20 11:04] LABS: Thyroid Stimulating Hormone 7.21 uIU/mL (0.465-4.68)
[2023-09-20 11:23] LABS: Vitamin B12 760 pg/mL (239-931)
[2023-09-20 12:57] LABS: Erythrocyte Sedimentation Rate 15 mm/hr (0-30)
[2023-09-21 08:22] LABS: RA Latex Turbid. <10.0 IU/mL (<14.0)
[2023-10-13 10:29] LABS: Antinuclear Antibodies, IFA POSITIVE
== END 2023-09-20 23:59 | disposition home or self-care (01) ==
LOC: LAB.DROPOF 10:21
PROVIDERS: PCP Nurse Practitioner Family; Visit Provider Nurse Practitioner Family
DX: R53.83 Other fatigue (principal); I10 Essential (primary) hypertension; R73.09 Other abnormal glucose; E55.9 Vitamin D deficiency, unspecified; E78.5 Hyperlipidemia, unspecified; Z68.32 Body mass index [BMI] 32.0-32.9, adult
CPT/HCPCS: 80050; 80053; 80061; 82306; 82607; 83036; 84443; 84550; 85025; 85651; 86038; 86431

== ENCOUNTER 2023-10-24 09:53 | Outpatient (CLI) | payer MEDICARE, SELFPAY ==
--- NOTE | 2023-10-24 09:54 | CA_ITS ---
FINAL REPORT TECHNIQUE: Color and spectral Doppler analysis CLINICAL HISTORY: pain in legs, nonhealing dermatitis FINDINGS: Right lower extremity, flow velocities (cm per second): Common femoral artery: 118 Profunda: 43 Proximal SFA: 114 Mid SFA: 79 Distal SFA: 73 Popliteal proximal: 74 Popliteal distal: 51 Anterior tibial artery: 80 Posterior tibial artery: 77 Peroneal proximal: 87 Left lower extremity, flow velocities (cm per second): Common femoral artery: 112 Profunda: 50 Proximal SFA: 123 Mid SFA: 97 Distal SFA: 98 Popliteal proximal: 64 Popliteal distal: 62 Anterior tibial artery: 67 Posterior tibial artery: 64 Peroneal proximal 73 Waveforms are noted to be biphasic and triphasic. IMPRESSION: No evidence of stenosis or occlusion. Reviewed, Interpreted and Dictated by Lise Schwartz MD Transcribed by Soraya Silva Authenticated and [facility]
== END 2023-10-24 23:59 | disposition home or self-care (01) ==
LOC: RT 09:54
PROVIDERS: PCP Nurse Practitioner Family; Visit Provider Nurse Practitioner Family
DX: I73.9 Peripheral vascular disease, unspecified (principal)
CPT/HCPCS: 93925

== ENCOUNTER 2023-10-31 10:52 | Outpatient (CLI) | payer MEDICARE, SELFPAY ==
--- NOTE | 2023-10-31 11:03 | XR_ITS ---
FINAL REPORT CLINICAL HISTORY: TB exposure COMPARISON: 04/24/2022 FINDINGS: TWO-VIEW CHEST The heart size is normal. The mediastinum is normal. The lungs are clear. There is no pneumothorax. IMPRESSION: No acute cardiopulmonary process. Reviewed, Interpreted and Dictated by Everett Nails MD Transcribed by Soraya Silva Authenticated and [facility]
[2023-10-31 11:19] LABS: Basophils # 0.1 K/mm3 (0-0.2); Basophils % 1.6 % (0.1-2.0); Eosinophils # 0.2 K/mm3 (0.0-0.4); Hematocrit 44.3 % (37.0-47.0); Hemoglobin 15.6 g/dL (12.2-16.2); Lymphocytes # 1.8 K/mm3 (0.7-4.5); Lymphocytes % 28.4 % (10-50); Mean Corpuscular HGB Conc 35.2 g/dL (31.8-35.4); Mean Corpuscular Hemoglobin 31.7 pg (27.0-31.2); Mean Platelet Volume 8.8 fl (7.4-10.4); Monocytes # 0.3 K/mm3 (0.1-1.0); Neutrophils % 62.1 % (37.0-80.0); Platelet Count 262 K/mm3 (142-424); Red Blood Count 4.92 M/mm3 (4.20-5.40); Red Cell Distribution Width 13.6 % (11.5-17.5); White Blood Count 6.4 K/mm3 (4.8-10.8)
[2023-10-31 12:05] LABS: Alanine Aminotransferase 81 U/L (12-78); Albumin Level 4.1 g/dl (3.5-5.0); Albumin/Globulin Ratio 1.3 (1.1-1.8); Alkaline Phosphatase 172 U/L (38-126); Anion Gap 11.2 mEq/L (5-15); Aspartate Amino Transferase 54 U/L (14-36); Bilirubin,Total 0.4 mg/dl (0.2-1.3); Blood Urea Nitrogen 13 mg/dl (7-17); Calcium 9.5 mg/dl (8.4-10.2); Carbon Dioxide 29 mmol/L (22.0-30.0); Chloride 104 mmol/L (98-107); Estimated Glomerular Filt Rate 123 ml/min (>60); GFR (African American) 149 ML/MIN (>60); Globulin 3.2 g/dL (1.3-3.2); Glucose 107 mg/dl (74-100); Potassium 4.2 mmoL/L (3.5-5.1); Sodium 140 mmol/L (136-145); Total Protein,Serum 7.3 g/dl (6.3-8.2)
== END 2023-10-31 23:59 | disposition home or self-care (01) ==
LOC: LAB 10:54
PROVIDERS: PCP Nurse Practitioner Family; Visit Provider Nurse Practitioner Family
DX: Z20.1 Contact with and (suspected) exposure to tuberculosis (principal)
CPT/HCPCS: 36415; 71046; 80053; 85025; 86480

== ENCOUNTER 2023-10-31 22:03 | Emergency (ER) | payer MEDICARE, SELFPAY ==
[2023-10-31 22:05] VITALS: BP 186/102; PULSE 130; RESP 20; TEMP 37; O2SAT 95; BMI 32.4
--- NOTE | 2023-10-31 22:36 | ECG_ITS ---
APPROVED REPORT Exam: Resting ECG HR:119 bpm ECG Measurements Heart Rate 119 AXES LA 120 P 67 QRSd 76 QRS 60 QT 339 T 70 QTc 410 Conclusion SINUS TACHYCARDIA INDETERMINATE AXIS ABNORMAL RHYTHM ECG Electronically signed by : KEN RDZ, 11/01/2023 00:47:12
--- NOTE | 2023-10-31 22:39 | ED_ITS ---
Discharge Plan Disposition Patient Disposition: Home, Self-Care Condition: Good Prescriptions Prescriptions: No Action insulin glargine [Lantus Solostar U-100 Insulin] 100 unit/mL (3 mL) insulin pen 60 unit SQ HS desvenlafaxine succinate 50 mg tablet extended release 24 hr 50 mg PO DAILY Qty: 30 2RF Movantik 25 mg tablet 25 mg PO DAILY Qty: 30 0RF Rx Instructions: must be taken on empty stomach; no food 1 hr after or 2-3 hrs before dose omeprazole 40 mg capsule,delayed release(DR/EC) 40 mg PO DAILY meloxicam 7.5 mg tablet 7.5 mg PO DAILY 30 Days Qty: 30 2RF ropinirole 1 mg tablet 1 mg PO HS Rx Instructions: administer 1-3 hours before bedtime trazodone 50 mg tablet 50 mg PO HS PRN (Reason: Sleep) tramadol 50 mg tablet 50 mg PO BID docusate sodium [Colace] 100 mg capsule 100 mg PO DAILY bethanechol chloride 50 mg tablet 50 mg PO TID cholecalciferol (vitamin D3) 25 mcg (1,000 unit) capsule 25 mcg PO DAILY Zyrtec 10 mg capsule 10 mg PO DAILY PRN (Reason: allergies) zinc sulfate [Orazinc] 50 mg zinc (220 mg) capsule 50 mg PO DAILY levothyroxine 25 mcg tablet 25 mcg PO DAILY Qty: 30 2RF Humalog U-100 Insulin 100 unit/mL cartridge 16 unit SQ TID 90 Days Qty: 43.2 1RF nifedipine 60 mg tablet extended release 60 mg PO DAILY 90 Days Qty: 90 1RF Rx Instructions: TAKE 1 TABLET DAILY Tradjenta 5 mg tablet 5 mg PO DAILY Qty: 90 2RF amoxicillin-pot clavulanate 875-125 mg tablet 1 tab PO BID 10 Days Qty: 20 0RF losartan 100 mg tablet 100 mg PO DAILY Rx Instructions: TAKE 1 TABLET DAILY Referrals Follow up/Referrals: Danelle Lennon APRN [Primary Care Provider] - See instructions Activity Restrictions/Add. Instructions Additional Instructions/Restrictions: Please follow-up with your primary care provider. Please return to the emergency department if you develop any new or worsening symptoms or become concerned for your health. Clinical Impressions Clinical Impression: Side effect of medication, Headache, Acute hyperglycemia Print Language Print Language: Nigerian Discharge ED Provider: Kenia Sutherland General Adult HPI <Kenia Sutherland DO - Last Filed: 11/01/23 00:04> General Chief complaint: Recheck/Abnormal Lab/Rx Stated complaint: blood pressure is high ,cough, headache Time Seen by Provider: 10/31/23 22:31 Mode of Arrival: Ambulatory Source of Information: Patient Limitations: No Limitations Description of Symptoms (Recalled from ER Triage Doc. by RN): Patient presents to ED with c/o of high blood pressure, high heart rate, dizziness, and SOA that started eariler today. Patient states she was seen in the clinic for a cough and SOA today. Pt receive a steriod shot, and had blood work and a chest x-ray today and was told her lungs were clear. Patient states b/p at home was 190/107 and her HR was in the 120's. History of Present Illness HPI narrative: This patient is a 67-year-old female with a history of hypertension, hypertensive heart disease, hyperlipidemia, palpitations, PATTIE, hypothyroidism, insulin-dependent diabetes, and GERD presenting to the emergency department for evaluation with concern for high blood pressure, high heart rate, severe headache, lightheadedness, and shortness of breath that started earlier today. Patient states that she has had a cough for several days and was seen today in outpatient clinic. She was given a shot of steroids, had blood work done that was reassuring, and had a chest x-ray and was told that her lungs were clear. She states that she has felt her heart beating and pounding most of the day, but when trying to go to bed tonight was much worse. She states that she can feel her heart beating in her throat, she could hear her heartbeat, and she was having significant throbbing headache. She notes she got up and took her blood pressure and it was 190/107 and her heart rate was in the 120s to 130s. No new vision changes, numbness, tingling, chest or back pain, abdominal pain, vomiting, changes bowel movements, or other concerns. Related Data Home Medications ?Medication ?Instructions ?Recorded ?Confirmed omeprazole 40 mg capsule,delayed 40 mg PO DAILY Reflux/Acid reflux 06/22/20 10/31/23 release bethanechol chloride 50 mg tablet 50 mg PO TID bladder control 05/01/22 10/31/23 cetirizine 10 mg capsule (Zyrtec) 10 mg PO DAILY PRN allergies 05/01/22 10/31/23 cholecalciferol (vitamin D3) 25 25 mcg PO DAILY Supplement 05/01/22 10/31/23 mcg (1,000 unit) capsule docusate sodium 100 mg capsule 100 mg PO DAILY bowels 05/01/22 10/31/23 (Colace) insulin glargine 100 unit/mL (3 60 unit SQ HS Diabetes 05/01/22 10/31/23 mL) subcutaneous pen (Lantus Solostar U-100 Insulin) ropinirole 1 mg tablet 1 mg PO HS RLS 05/01/22 10/31/23 tramadol 50 mg tablet 50 mg PO BID Pain 05/01/22 10/31/23 trazodone 50 mg tablet 50 mg PO HS PRN Sleep 05/01/22 10/31/23 zinc sulfate 50 mg zinc (220 mg) 50 mg PO DAILY Supplement 05/01/22 10/31/23 capsule (Orazinc) losartan 100 mg tablet 100 mg PO DAILY htn 06/05/22 10/31/23 Previous Rx's ?Medication ?Instructions ?Recorded meloxicam 7.5 mg tablet 7.5 mg PO DAILY pain 30 days #30 10/05/20 tabs desvenlafaxine succinate 50 mg 50 mg PO DAILY #30 tabs 10/18/23 tablet,extended release 24 hr naloxegol 25 mg tablet (Movantik) 25 mg PO DAILY #30 tabs 10/18/23 insulin lispro 100 unit/mL 16 unit (0.16 mL) SQ TID Diabetes 10/24/23 subcutaneous cartridge (Humalog 90 days #43.2 mL U-100 Insulin) levothyroxine 25 mcg tablet 25 mcg PO DAILY #30 tabs 10/24/23 nifedipine 60 mg tablet,extended 60 mg PO DAILY HTN 90 days #90 tabs 10/24/23 release linagliptin 5 mg tablet (Tradjenta) 5 mg PO DAILY #90 tabs 10/28/23 amoxicillin 875 mg-potassium 1 tab PO BID 10 days #20 tabs 10/31/23 clavulanate 125 mg tablet Allergies Allergy/AdvReac Type Severity Reaction Status Date / Time amlodipine [AMLODIPINE] Allergy Intermediate Verified 10/31/23 10:19 cyclobenzaprine Allergy Intermediate Verified 10/31/23 10:19 [CYCLOBENZAPRINE] hydrochlorothiazide Allergy Intermediate Verified 10/31/23 10:19 [HYDROCHLOROTHIAZIDE] latex [LATEX] Allergy Intermediate Verified 10/31/23 10:19 pioglitazone [From ACTOS] Allergy Intermediate itching Verified 10/31/23 10:19 spironolactone Allergy Intermediate Verified 10/31/23 10:19 [SPIRONOLACTONE] rosuvastatin [From Crestor] AdvReac Intermediate myalgia Verified 10/31/23 10:19 beta adrenergic blockers Allergy Intermediate Uncoded 10/31/23 10:19 beta blockers Allergy Intermediate Uncoded 10/31/23 10:19 PFSH <Kenia Sutherland DO - Last Filed: 11/01/23 00:04> PFS Disclaimer: The information contained in this section may have been updated after the patient was seen, as this information can be updated by other users. Medical History Sleep apnea Preoperative clearance Palpitations Hypertension Chest pain Dizziness Edema of lower extremity Restless sleeper Somnolence, daytime Hyperlipidemia Hypertensive heart disease Surgical History Hx of elbow surgery History of hysterectomy History of back surgery Family History Other Family history of diabetes mellitus type II Family history of hypertension Family hx-kidney disease Social History Smoking Status: Never smoker alcohol intake: never substance use type: denies use current occupational status: disabled Travel in the last 8 weeks: None household members: spouse housing: house lives independently: Yes marital status: education level: college current occupational exposures/hazards: No caffeine: Yes special kris needs: No agree to transfusion: No do you feel safe at home: Yes victim of physical abuse: No victim of emotional abuse: No victim of sexual abuse: No would you like helpful sources: No <Kenia Sutherland DO - Last Filed: 11/01/23 00:04> ROS Obtained: Yes All systems reviewed & no additional complaints except as documented Physical Exam <DO Merry Gomez Last Filed: 11/01/23 00:04> General General appearance: alert, in no apparent distress and obese Head Head exam: atraumatic and normocephalic Eye Eye exam: Present normal appearance, PERRL and EOMI ENT ENT exam: Present normal exam, normal oropharynx, mucous membranes moist and normal external ear exam Neck Neck exam: Present normal inspection, full ROM and trachea midline; Absent tenderness Chest Chest inspection: Present normal inspection and symmetric chest wall rise; Absent tenderness Respiratory Respiratory exam: Present normal lung sounds bilaterally; Absent respiratory distress, wheezes, stridor or accessory muscle use Cardiovascular Cardiovascular exam: Present normal rhythm and tachycardia Abdominal Exam Abdominal exam: Present soft; Absent distention, tenderness or guarding Extremities Exam Extremities exam: Present normal inspection, full ROM and normal capillary refill; Absent tenderness or edema Back Exam Back exam: Present normal inspection and full ROM; Absent tenderness Neurological Exam Neurological exam: Present alert, oriented X3, CN II-XII intact and normal gait; Absent motor sensory deficit Psychiatric Psychiatric exam: Present normal affect and normal mood Skin Skin exam: Present warm and dry Medical Decision Making <Kenia Sutherland, DO - Last Filed: 11/01/23 00:04> Medical Records Medical records reviewed: Yes I reviewed the patient's medical records. Abrahan Inquiry Pt receiving controlled substance: No Vital Signs: 10/31/23 22:05 11/01/23 00:55 11/01/23 00:55 Temperature 98.6 F 98.6 F Temperature Source Oral Oral Pulse Rate 90 Pulse Rate [Right Radial] 130 H 90 Respiratory Rate 20 18 20 Blood Pressure 139/72 Blood Pressure [Right Arm] 186/102 H 139/72 Blood Pressure Mean [Right Arm] 130 94 Blood Pressure Source Automatic Cuff Blood Pressure Source [Right Arm] Automatic Cuff Automatic Cuff Blood Pressure Position Supine Blood Pressure Position [Right Arm] Supine Supine 02 Sat by Pulse Oximetry 95 97 Oxygen Delivery Method Room Air Room Air Room Air Lab Data Lab results reviewed: Yes I reviewed the patient's lab results. Lab Results 10/31/23 22:38: WBC 8.0, RBC 4.68, Hgb 14.0 D, Hct 43.8, MCV 93.7, MCH 29.9, MCHC 31.9, RDW 13.6, Plt Count 265, MPV 9.2, Neut % (Auto) 84.1 H, Lymph % (Auto) 11.5, [place] % (Auto) 3.1, Eos % (Auto) 0.8, Baso % (Auto) 0.4, Neut # (Auto) 6.8, Lymph # (Auto) 0.9, [place] # (Auto) 0.3, Eos # (Auto) 0.1, Baso # (Auto) 0.0, Sodium 137, Potassium 4.4, Chloride 105, Carbon Dioxide 25, Anion Gap 11.4, BUN 16, Creatinine 0.50 L, Estimated Creat Clear 73, Estimated GFR 123, Est GFR ( Amer) 149, Glucose 416 H* D, Calcium 9.9, Total Bilirubin 0.4, AST 56 H, ALT 82 H, Alkaline Phosphatase 247 H, Troponin I < 0.01, Total Protein 7.2, Albumin 4.2, Globulin 3.0, Albumin/Globulin Ratio 1.4, TSH 0.81, T hyroxine (T4) 11.2 H 10/31/23 22:49: Magnesium 1.9, NT-Pro-B Natriuret Pep < 20.0 10/31/23 23:15: SARS-CoV-2 (PCR) Not detected, Influenza A Untype (PCR) Not detected, Influenza Type B (PCR) Not detected 10/31/23 22:38 10/31/23 22:38 Orders (Tests/Meds): ED MEDICATIONS Discontinued Medications Generic Name Dose Route Start Last Admin Trade Name Tangq PRN Reason Stop Dose Admin Acetaminophen 1,000 mg 10/31/23 22:55 10/31/23 23:12 Acetaminophen 1,000mg/100ml Vial IV 10/31/23 22:56 Not Given ONCE ONE Lactated Ringer's 1,000 mls @ 999 mls/hr 10/31/23 22:55 10/31/23 23:11 Lactated Ringer's 1000 Ml Bag IV 10/31/23 23:55 999 mls/hr .Q1H1M ONE Administration Iopamidol 180 ml 10/31/23 23:28 10/31/23 23:31 Iopamidol-370 (76%);100ml Bottle IV 10/31/23 23:29 180 ml ONCE ONE Administration Ketorolac Tromethamine 15 mg 10/31/23 22:55 10/31/23 23:12 Ketorolac 30mg/Ml Vial IV 10/31/23 22:56 15 mg ONCE ONE Administration Metoclopramide HCl 10 mg 10/31/23 22:55 10/31/23 23:11 Metoclopramide Hcl 10mg/2ml Vial IVP 10/31/23 22:56 10 mg ONCE ONE Administration Sodium Chloride 50 ml 10/31/23 23:28 10/31/23 23:32 0.9 % Sodium Chloride 50 Ml Vial IV 10/31/23 23:29 50 ml ONCE ONE Administration Sodium Chloride 10 ml 10/31/23 23:28 10/31/23 23:31 Sodium Chloride 0.9% 10ml Syr (Rad Only) IV 10/31/23 23:29 10 ml ONCE ONE Administration ORDERS Category Date Time Status CT angio head Stat Cat Scan 10/31/23 22:[address] angio neck Stat Cat Scan 10/31/23 22:[address] head/brain wo con Stat Cat Scan 10/31/23 22:53 Completed CTA Chest [CT angio chest - dissection] Stat Cat Scan 10/31/23 22:55 Completed BNP [NT Pro Brain Natriuretic Pep.] Stat Lab 10/31/23 22:49 Completed Complete Blood Count Auto Diff Stat Lab 10/31/23 22:38 Completed Comprehensive Metabolic Panel Stat Lab 10/31/23 22:38 Completed Magnesium Stat Lab 10/31/23 22:49 Completed Rapid PCR Covid and Flu A/B Stat Lab 10/31/23 23:15 Completed T4 (Thyroxine) Stat Lab 10/31/23 22:38 Completed TSH [Thyroid Stimulating Hormone] Stat Lab 10/31/23 22:38 Completed Trop I [Troponin I] Stat Lab 10/31/23 22:38 Completed ECG Data Tracing #1: I reviewed this ECG and interpreted as documented below: Sinus tachycardia with a ventricular rate of [address] changes concerning for ischemia. Normal intervals. ECG initial impression date: 10/31/23 ECG initial impression time: 22:34 Medical Decision Narrative: In summary, this patient is a 67-year-old female presenting to the Emergency Department for evaluation of headache, high blood pressure, high heart rate, as well as cough. Differential diagnoses considered include but are not limited to hypertensive urgency, hypertensive emergency, CVA, intracranial hemorrhage, intracranial mass, tacky dysrhythmia, hyperthyroidism, steroid-induced hypertension/tachycardia. Ruling out the most morbid conditions drove assessment. It should be noted patient's history includes hypertension, hyperlipidemia, and insulin-dependent diabetes which may or may not be at goal therapy. This complicates all aspects of care by increasing patient's risk for morbidity. I reviewed patient's past medical records and noted evaluation in outpatient clinic today for cough and concern for potential exposure to TB. I reviewed chest x-ray obtained today which does not demonstrate any focal pneumonia or other concern.. On exam, the patient is lying in bed in no acute distress. She is profoundly hypertensive with systolics in the 190s and her heart rate is in the 120s. She is neurologically intact without focal deficit. Workup included CBC, CMP, troponin, BNP, TSH, T4, CT head, CT angiogram head and neck, CT angiogram chest. She was given a migraine cocktail bolus of IV fluids, IV Reglan, Toradol, acetaminophen. Patient care signed out to the oncoming provider, Dr. Salcedo <Jarad Salcedo MD - Last Filed: 11/01/23 01:49> Vital Signs: 10/31/23 22:05 11/01/23 00:55 11/01/23 00:55 Temperature 98.6 F 98.6 F Temperature Source Oral Oral Pulse Rate 90 Pulse Rate [Right Radial] 130 H 90 Respiratory Rate 20 18 20 Blood Pressure 139/72 Blood Pressure [Right Arm] 186/102 H 139/72 Blood Pressure Mean [Right Arm] 130 94 Blood Pressure Source Automatic Cuff Blood Pressure Source [Right Arm] Automatic Cuff Automatic Cuff Blood Pressure Position Supine Blood Pressure Position [Right Arm] Supine Supine 02 Sat by Pulse Oximetry 95 97 Oxygen Delivery Method Room Air Room Air Room Air Lab Data Lab Results 10/31/23 22:38: WBC 8.0, RBC 4.68, Hgb 14.0 D, Hct 43.8, MCV 93.7, MCH 29.9, MCHC 31.9, RDW 13.6, Plt Count 265, MPV 9.2, Neut % (Auto) 84.1 H, Lymph % (Auto) 11.5, [place] % (Auto) 3.1, Eos % (Auto) 0.8, Baso % (Auto) 0.4, Neut # (Auto) 6.8, Lymph # (Auto) 0.9, [place] # (Auto) 0.3, Eos # (Auto) 0.1, Baso # (Auto) 0.0, Sodium 137, Potassium 4.4, Chloride 105, Carbon Dioxide 25, Anion Gap 11.4, BUN 16, Creatinine 0.50 L, Estimated Creat Clear 73, Estimated GFR 123, Est GFR ( Amer) 149, Glucose 416 H* D, Calcium 9.9, Total Bilirubin 0.4, AST 56 H, ALT 82 H, Alkaline Phosphatase 247 H, Troponin I < 0.01, Total Protein 7.2, Albumin 4.2, Globulin 3.0, Albumin/Globulin Ratio 1.4, TSH 0.81, T hyroxine (T4) 11.2 H 10/31/23 22:49: Magnesium 1.9, NT-Pro-B Natriuret Pep < 20.0 10/31/23 23:15: SARS-CoV-2 (PCR) Not detected, Influenza A Untype (PCR) Not detected, Influenza Type B (PCR) Not detected Orders (Tests/Meds): ED MEDICATIONS Discontinued Medications Generic Name Dose Route Start Last Admin Trade Name Freq PRN Reason Stop Dose Admin Acetaminophen 1,000 mg 10/31/23 22:55 10/31/23 23:12 Acetaminophen 1,000mg/100ml Vial IV 10/31/23 22:56 Not Given ONCE ONE Lactated Ringer's 1,000 mls @ 999 mls/hr 10/31/23 22:55 10/31/23 23:11 Lactated Ringer's 1000 Ml Bag IV 10/31/23 23:55 999 mls/hr .Q1H1M ONE Administration Iopamidol 180 ml 10/31/23 23:28 10/31/23 23:31 Iopamidol-370 (76%);100ml Bottle IV 10/31/23 23:29 180 ml ONCE ONE Administration Ketorolac Tromethamine 15 mg 10/31/23 22:55 10/31/23 23:12 Ketorolac 30mg/Ml Vial IV 10/31/23 22:56 15 mg ONCE ONE Administration Metoclopramide HCl 10 mg 10/31/23 22:55 10/31/23 23:11 Metoclopramide Hcl 10mg/2ml Vial IVP 10/31/23 22:56 10 mg ONCE ONE Administration Sodium Chloride 50 ml 10/31/23 23:28 10/31/23 23:32 0.9 % Sodium Chloride 50 Ml Vial IV 10/31/23 23:29 50 ml ONCE ONE Administration Sodium Chloride 10 ml 10/31/23 23:28 10/31/23 23:31 Sodium Chloride 0.9% 10ml Syr (Rad Only) IV 10/31/23 23:29 10 ml ONCE ONE Administration ORDERS Category Date Time Status CT angio head Stat Cat Scan 10/31/23 22:[address] angio neck Stat Cat Scan 10/31/23 22:[address] head/brain wo con Stat Cat Scan 10/31/23 22:53 Completed CTA Chest [CT angio chest - dissection] Stat Cat Scan 10/31/23 22:55 Completed BNP [NT Pro Brain Natriuretic Pep.] Stat Lab 10/31/23 22:49 Completed Complete Blood Count Auto Diff Stat Lab 10/31/23 22:38 Completed Comprehensive Metabolic Panel Stat Lab 10/31/23 22:38 Completed Magnesium Stat Lab 10/31/23 22:49 Completed Rapid PCR Covid and Flu A/B Stat Lab 10/31/23 23:15 Completed T4 (Thyroxine) Stat Lab 10/31/23 22:38 Completed TSH [Thyroid Stimulating Hormone] Stat Lab 10/31/23 22:38 Completed Trop I [Troponin I] Stat Lab 10/31/23 22:38 Completed Medical Decision Narrative: In summary, this patient is a 67-year-old female presenting to the Emergency Department for evaluation of headache, high blood pressure, high heart rate, as well as cough. Differential diagnoses considered include but are not limited to hypertensive urgency, hypertensive emergency, CVA, intracranial hemorrhage, intracranial mass, tacky dysrhythmia, hyperthyroidism, steroid-induced hypertension/tachycardia. Ruling out the most morbid conditions drove assessment. It should be noted patient's history includes hypertension, hyperlipidemia, and insulin-dependent diabetes which may or may not be at goal therapy. This complicates all aspects of care by increasing patient's risk for morbidity. I reviewed patient's past medical records and noted evaluation in outpatient clinic today for cough and concern for potential exposure to TB. I reviewed chest x-ray obtained today which does not demonstrate any focal pneumonia or other concern.. On exam, the patient is lying in bed in no acute distress. She is profoundly hypertensive with systolics in the 190s and her heart rate is in the 120s. She is neurologically intact without focal deficit. Workup included CBC, CMP, troponin, BNP, TSH, T4, CT head, CT angiogram head and neck, CT angiogram chest. She was given a migraine cocktail bolus of IV fluids, IV Reglan, Toradol, acetaminophen. Patient care signed out to the oncoming provider, Dr. Matias Salcedo MD: I assumed care of the patient at the time of handoff from the prior provider. On reassessment patient reports symptomatic resolution. CT imaging independently interpreted by me and shows no evidence of intracranial lesion, pneumonia, PE etc. Laboratory results independently By me and show hyperglycemia consistent with recent steroid injection. Patient vital signs normalized after headache cocktail. Interactive discussion had with patient regarding her presentation. Most consistent with side effect of recent steroid injection. Patient was discharged in stable condition with return precautions. Critical Care <Kenia Sutherland, DO - Last Filed: 11/01/23 00:04> Critical Care Time Critical Care Time: No
--- NOTE | 2023-10-31 22:53 | CT_ITS ---
PROCEDURE INFORMATION: Exam: CT Head Without Contrast Exam date and time: 10/31/2023 11:23 PM Age: 67 years old Clinical indication: Pain; Headache; Additional info: Headache, hypertension TECHNIQUE: Imaging protocol: Computed tomography of the head without contrast. Radiation optimization: All CT scans at this facility use at least one of these dose optimization techniques: automated exposure control; mA and/or kV adjustment per patient size (includes targeted exams where dose is matched to clinical indication); or iterative reconstruction. COMPARISON: No relevant prior studies available. FINDINGS: Brain: Mild age-related volume loss. No acute intracranial hemorrhage, midline shift or intracranial mass effect. Cerebral ventricles: No obstructive hydrocephalus. Paranasal sinuses: Visualized sinuses are unremarkable. No fluid levels. Mastoid air cells: Visualized mastoid air cells are well aerated. Bones: Unremarkable. No acute fracture. Soft tissues: Unremarkable. IMPRESSION: No acute intracranial abnormality.
--- NOTE | 2023-10-31 22:55 | CT_ITS ---
PROCEDURE INFORMATION: Exam: CTA Chest With Contrast Exam date and time: 10/31/2023 11:29 PM Age: 67 years old Clinical indication: Pain; Other: Headache; Additional info: Severe HTN, STONE, pulsatile tinnitus TECHNIQUE: Imaging protocol: Computed tomographic angiography of the chest with contrast. Exam focused on the arteries. 3D rendering (Not supervised by radiologist): MIP and/or 3D reconstructed images were created by the technologist. Total images: 717 Radiation optimization: All CT scans at this facility use at least one of these dose optimization techniques: automated exposure control; mA and/or kV adjustment per patient size (includes targeted exams where dose is matched to clinical indication); or iterative reconstruction. Contrast material: ISOVUE; Contrast volume: 90 ml; Contrast route: INTRAVENOUS (IV); COMPARISON: CR XR CHEST 2V 10/31/2023 11:18 AM FINDINGS: Pulmonary arteries: Adequate contrast opacification of the pulmonary arteries. The main pulmonary artery is normal in caliber. No acute pulmonary emboli. Aorta: Mildly atherosclerotic thoracic aorta without aneurysm or dissection. Lungs: The trachea and main bronchi are patent. Minor dependent atelectasis. Lungs are otherwise clear and well expanded. Scattered calcified pulmonary granuloma. Pleural spaces: Unremarkable. No pneumothorax. No pleural effusion. Heart: Normal heart size. No pericardial effusion. Coronary arteries: Mild coronary artery calcifications. Lymph nodes: No mediastinal or hilar lymphadenopathy. Partially calcified right hilar lymph nodes. Diaphragm: Mild elevation right hemidiaphragm. Liver: Mild hepatic steatosis. Stomach: Moderate gastric distension with recently ingested contents. Intraperitoneal space: No acute process in the upper abdomen. Bones/joints: Laminectomy changes T9 and T10 and partial laminectomy at T8. Moderate degenerative changes lower thoracic spine. Soft tissues: Unremarkable. IMPRESSION: 1. No acute intrathoracic process. Specifically, no acute pulmonary emboli. 2. Remote calcified granulomatous disease. 3. Clear lungs. 4. Multilevel laminectomy changes lower thoracic spine.
--- NOTE | 2023-10-31 22:55 | CT_ITS ---
PROCEDURE INFORMATION: Exam: CTA Neck With Contrast Exam date and time: 10/31/2023 11:26 PM Age: 67 years old Clinical indication: Pain; Headache; Additional info: Severe HTN, STONE, pulsatile tinnitus TECHNIQUE: Imaging protocol: Computed tomographic angiography of the neck with contrast. Exam focused on the cervical segments of the vasculature. 3D rendering (Not supervised by radiologist): MIP and/or 3D reconstructed images were created by the technologist. Radiation optimization: All CT scans at this facility use at least one of these dose optimization techniques: automated exposure control; mA and/or kV adjustment per patient size (includes targeted exams where dose is matched to clinical indication); or iterative reconstruction. Contrast material: ISOVUE; Contrast volume: 90 ml; Contrast route: INTRAVENOUS (IV); COMPARISON: CT ANGIO HEAD 10/31/2023 11:26 PM FINDINGS: Limitations: Limited by artifact arising from metallic dental hardware/dental amalgam. Right common carotid artery: Mild calcification at the right common carotid bifurcation without significant stenosis. Right internal carotid artery: No stenosis of the extracranial segment. No dissection or occlusion. Right external carotid artery: No occlusion or stenosis of the origin. Left common carotid artery: Mild calcification at the left common carotid bifurcation without hemodynamically significant stenosis. Left internal carotid artery: No stenosis of the extracranial segment. No dissection or occlusion. Left external carotid artery: No occlusion or stenosis of the origin. Right vertebral artery: No stenosis. No dissection or occlusion. Left vertebral artery: No stenosis. No dissection or occlusion. Soft tissues: Normal. No significant soft tissue swelling. Bones/joints: No acute fracture. IMPRESSION: No hemodynamically significant stenosis or dissection. REFERENCES: NASCET CRITERIA. The degree of stenosis in the cervical segment of the internal carotid artery is based on NASCET criteria. Normal is no stenosis. Mild is less than 50% stenosis. Moderate is 50-69% stenosis. Severe is 70% to 99% stenosis. Total occlusion is no detectable patent lumen.
--- NOTE | 2023-10-31 22:55 | CT_ITS ---
PROCEDURE INFORMATION: Exam: CTA Head With Contrast, Arteriography Exam date and time: 10/31/2023 11:26 PM Age: 67 years old Clinical indication: Pain; Headache; Additional info: Severe HTN, STONE, pulsatile tinnitus TECHNIQUE: Imaging protocol: Computed tomographic angiography of the head with contrast. Exam focused on the arteries. 3D rendering (Not supervised by radiologist): MIP and/or 3D reconstructed images were created by the technologist. Radiation optimization: All CT scans at this facility use at least one of these dose optimization techniques: automated exposure control; mA and/or kV adjustment per patient size (includes targeted exams where dose is matched to clinical indication); or iterative reconstruction. Contrast material: ISOVUE; Contrast volume: 90 ml; Contrast route: INTRAVENOUS (IV); COMPARISON: CT HEAD/BRAIN WO CON 10/31/2023 11:23 PM FINDINGS: ANTERIOR CIRCULATION: Right internal carotid artery: Calcification involving the right carotid siphon without significant stenosis. Right middle cerebral artery: No occlusion or significant stenosis. No aneurysm. Right anterior cerebral artery: No occlusion or significant stenosis. No aneurysm. Left internal carotid artery: Calcification involving the left carotid siphon without hemodynamically significant stenosis. Left middle cerebral artery: No occlusion or significant stenosis. No aneurysm. Left anterior cerebral artery: No occlusion or significant stenosis. No aneurysm. POSTERIOR CIRCULATION: Right vertebral artery: No occlusion or significant stenosis. No aneurysm. Left vertebral artery: No occlusion or significant stenosis. No aneurysm. Basilar artery: No occlusion or significant stenosis. No aneurysm. Right posterior cerebral artery: No occlusion or significant stenosis. No aneurysm. Left posterior cerebral artery: No occlusion or significant stenosis. No aneurysm. IMPRESSION: No significant vascular pathology.
[2023-10-31 23:01] LABS: Basophils % 0.4 % (0.1-2.0); Eosinophils # 0.1 K/mm3 (0.0-0.4); Eosinophils % 0.8 % (0.1-12.0); Hematocrit 43.8 % (37.0-47.0); Lymphocytes # 0.9 K/mm3 (0.7-4.5); Lymphocytes % 11.5 % (10-50); Mean Corpuscular HGB Conc 31.9 g/dL (31.8-35.4); Mean Corpuscular Hemoglobin 29.9 pg (27.0-31.2); Mean Corpuscular Volume 93.7 fl (81-99); Mean Platelet Volume 9.2 fl (7.4-10.4); Monocytes # 0.3 K/mm3 (0.1-1.0); Monocytes % 3.1 % (1.7-9.3); Neutrophils # 6.8 K/mm3 (1.8-7.8); Neutrophils % 84.1 % (37.0-80.0); Platelet Count 265 K/mm3 (142-424); Red Blood Count 4.68 M/mm3 (4.20-5.40); Red Cell Distribution Width 13.6 % (11.5-17.5)
[2023-10-31] MEDS: LACTATED RINGERS 1000ML 1,000 ML 999 ML IV (23:11)
[2023-10-31] MEDS: METOCLOPRAMIDE HCL 10MG/2ML VIAL 10 MG IVP (23:11)
[2023-10-31] MEDS: KETOROLAC 30MG/ML VIAL 15 MG IV (23:12)
[2023-10-31 23:13] LABS: Magnesium 1.9 mg/dl (1.6-2.3)
[2023-10-31 23:14] LABS: Alanine Aminotransferase 82 U/L (12-78); Albumin Level 4.2 g/dl (3.5-5.0); Albumin/Globulin Ratio 1.4 (1.1-1.8); Alkaline Phosphatase 247 U/L (38-126); Anion Gap 11.4 mEq/L (5-15); Aspartate Amino Transferase 56 U/L (14-36); Bilirubin,Total 0.4 mg/dl (0.2-1.3); Blood Urea Nitrogen 16 mg/dl (7-17); Calcium 9.9 mg/dl (8.4-10.2); Carbon Dioxide 25 mmol/L (22.0-30.0); Chloride 105 mmol/L (98-107); Creatinine Clearance Estimated 73 mL/min (50-200); Estimated Glomerular Filt Rate 123 ml/min (>60); GFR (African American) 149 ML/MIN (>60); Potassium 4.4 mmoL/L (3.5-5.1); Sodium 137 mmol/L (136-145); Total Protein,Serum 7.2 g/dl (6.3-8.2)
[2023-10-31 23:17] LABS: Glucose 416 mg/dl (74-100)
--- NOTE | 2023-10-31 23:17 | PC.NURSE ---
Gi from the lab called a Critial Glucose level of 416. and RN aware. CR
[2023-10-31 23:19] LABS: Coronavirus 19, PCR Not Detected (NotDetected); Influenza A, PCR Not Detected (NotDetected); Influenza B, PCR Not Detected (NotDetected)
[2023-10-31 23:24] LABS: NT Pro Brain Natriuretic Pep. < 20.0 pg/mL (0-125)
[2023-10-31] MEDS: SODIUM CHLORIDE 0.9% 10ML SYR (RAD ONLY) 10 ML IV (23:31)
[2023-10-31] MEDS: IOPAMIDOL-370 (76%);100ML BOTTLE 180 ML IV (23:31)
[2023-10-31] MEDS: 0.9 % SODIUM CHLORIDE 50 ML VIAL IV (23:32)
[2023-10-31 23:33] LABS: T4 (Thyroxine) 11.2 ug/dl (5.53-11.0)
[2023-10-31 23:39] LABS: Troponin I < 0.01 ng/ml (0.00-0.034)
[2023-10-31 23:46] LABS: Thyroid Stimulating Hormone 0.81 uIU/mL (0.465-4.68)
[2023-11-01 00:55] VITALS: BP 139/72; PULSE 90; RESP 18; RESP 20; TEMP 37; O2SAT 97
== END 2023-11-01 01:07 | disposition home or self-care (01) ==
PROVIDERS: Emergency Provider Emergency Medicine; PCP Nurse Practitioner Family
DX: I10 Essential (primary) hypertension (principal); Z20.1 Contact with and (suspected) exposure to tuberculosis; E11.65 Type 2 diabetes mellitus with hyperglycemia; T50.995A Adverse effect of other drugs, medicaments and biological substances, initial encounter; R51.9 Headache, unspecified; R00.0 Tachycardia, unspecified; E78.5 Hyperlipidemia, unspecified; Z79.4 Long term (current) use of insulin; Z79.84 Long term (current) use of oral hypoglycemic drugs
CPT/HCPCS: 36415; 70450; 70496; 70498; 71046; 71275; 80050; 80053; 83735; 83880; 84436; 84443; 84484; 85025; 86480; 87636; 93005; 96361; 96374; 96375; 99285; J1885; J2765; J7120; Q9967

== ENCOUNTER 2024-01-07 08:27 | Outpatient (CLI) | payer MEDICARE, SELFPAY ==
[2024-01-07 12:56] LABS: Basophils # 0.1 K/mm3 (0-0.2); Basophils % 1.2 % (0.1-2.0); Eosinophils # 0.1 K/mm3 (0.0-0.4); Eosinophils % 1.9 % (0.1-12.0); Hematocrit 44.9 % (37.0-47.0); Hemoglobin 15.1 g/dL (12.2-16.2); Lymphocytes # 1.2 K/mm3 (0.7-4.5); Lymphocytes % 25.5 % (10-50); Mean Corpuscular HGB Conc 33.6 g/dL (31.8-35.4); Mean Corpuscular Hemoglobin 29.5 pg (27.0-31.2); Mean Corpuscular Volume 87.6 fl (81-99); Monocytes # 0.3 K/mm3 (0.1-1.0); Monocytes % 7.2 % (1.7-9.3); Neutrophils % 64.3 % (37.0-80.0); Platelet Count 253 K/mm3 (142-424); Red Blood Count 5.12 M/mm3 (4.20-5.40); Red Cell Distribution Width 14.2 % (11.5-17.5); White Blood Count 4.7 K/mm3 (4.8-10.8)
[2024-01-07 13:37] LABS: Albumin Level 4.4 g/dl (3.5-5.0); Chloride 103 mmol/L (98-107); Potassium 4.6 mmoL/L (3.5-5.1); Sodium 139 mmol/L (136-145)
[2024-01-07 13:39] LABS: Alanine Aminotransferase 56 U/L (12-78); Aspartate Amino Transferase 51 U/L (14-36); Blood Urea Nitrogen 13 mg/dl (7-17); Estimated Glomerular Filt Rate 159 ml/min (>60); GFR (African American) 193 ML/MIN (>60)
[2024-01-07 13:40] LABS: Albumin/Globulin Ratio 1.5 (1.1-1.8); Alkaline Phosphatase 188 U/L (38-126); Anion Gap 9.6 mEq/L (5-15); Bilirubin,Total 0.5 mg/dl (0.2-1.3); Calcium 9.8 mg/dl (8.4-10.2); Carbon Dioxide 31 mmol/L (22.0-30.0); Glucose 172 mg/dl (74-100); Magnesium 1.8 mg/dl (1.6-2.3); Total Protein,Serum 7.4 g/dl (6.3-8.2)
[2024-01-07 13:56] LABS: Hemoglobin A1C 8.6 % (4.0-6.0)
[2024-01-07 14:10] LABS: Thyroid Stimulating Hormone 2.67 uIU/mL (0.465-4.68)
[2024-01-07 14:14] LABS: Ferritin 51.8 ng/ml (11.1-264)
[2024-01-07 14:28] LABS: Microalbumin/Creatinine Ratio 19.8
[2024-01-07 14:31] LABS: Creatinine,Urine Random 72 mg/dL (Not Estab.)
[2024-01-07 16:24] LABS: Vitamin B12 > 1000 pg/mL (239-931)
[2024-01-08 08:40] LABS: Triiodothyronine (T3) Free 3.4 pg/mL (2.0-4.4)
== END 2024-01-07 23:59 | disposition home or self-care (01) ==
LOC: LAB.DROPOF 01-09 08:27
PROVIDERS: PCP Nurse Practitioner Family; Visit Provider Nurse Practitioner Family
DX: E11.65 Type 2 diabetes mellitus with hyperglycemia (principal); D64.9 Anemia, unspecified; E78.2 Mixed hyperlipidemia; E03.9 Hypothyroidism, unspecified; R00.2 Palpitations; R06.02 Shortness of breath; K31.84 Gastroparesis; K59.00 Constipation, unspecified; M25.561 Pain in right knee; R05.1 Acute cough
CPT/HCPCS: 80050; 80053; 82043; 82570; 82607; 82728; 83036; 83735; 84443; 84481; 85025

== ENCOUNTER 2024-01-07 09:48 | Outpatient (CLI) | payer MEDICARE, SELFPAY ==
--- NOTE | 2024-01-07 09:53 | XR_ITS ---
FINAL REPORT CLINICAL HISTORY: Right medial knee pain, swelling COMPARISON: None FINDINGS: Three views of the right knee reveal no evidence of fracture or dislocation. The bony alignment is normal. The joint spaces are preserved. There is no evidence of joint effusion. No localized soft tissue abnormality is identified. IMPRESSION: No acute abnormality identified. Reviewed, Interpreted and Dictated by Vivek Beckman III, MD Transcribed by Noemi Still Authenticated and . [facility]
--- NOTE | 2024-01-07 09:53 | XR_ITS ---
FINAL REPORT CLINICAL HISTORY: shortness of breath COMPARISON: 10/31/2023 FINDINGS: Two views of the chest were obtained. The heart size and pulmonary vascularity are within normal limits. The mediastinum is normal. No acute pulmonary abnormality is identified. There is no pneumothorax. The bony thorax is intact. IMPRESSION: No active cardiopulmonary disease. Reviewed, Interpreted and Dictated by Vivek Beckman III, MD Transcribed by Noemi Still Authenticated and . [facility]
== END 2024-01-07 23:59 | disposition home or self-care (01) ==
LOC: RAD 09:49
PROVIDERS: PCP Nurse Practitioner Family; Visit Provider Nurse Practitioner Family
DX: R06.02 Shortness of breath (principal); M25.561 Pain in right knee
CPT/HCPCS: 71046; 73562

== ENCOUNTER 2024-01-15 13:59 | Outpatient (CLI) | payer MEDICARE, SELFPAY ==
--- NOTE | 2024-01-15 | CA_ITS ---
APPROVED REPORT EXAM: Comprehensive 2D, Doppler, and color-flow Echocardiogram Barker Operator: Melanie Erazo RT(R) Ht: 5 ft 2 in Wt: 186lbs BSA: 1.85 BP: 130/82 mmHg Indications: SKELTON, edema, HTN, DM, hyperlipidemia, weakness. 2D Dimensions LA Volume 19.60 mL LA Volume Index 10.30 mL/m2 (M/F) 16-34 EF AP4 57.30 % GL Strain -20.1 % M-Mode Dimensions RVDd 2.68 cm (0.9-2.6) LA Diam 3.37 cm (1.9-4.0) LVDd 3.95 cm (3.5-5.7) LVDs 2.93 cm (3.5-5.7) IVSd 1.15 cm (0.6-1.1) PWd 1.15 cm (0.6-1.1) EF (Teich) 51.40% FS 25.80% EDV (Teich) 67.90 mL ESV (Teich) 33.00 mL LV Diastology E Decel Time 150 (160-240 msec) E/A Ratio 0.71 Mitral Valve MV E Max Henrique. 87.0 (40-130 cm/s) MV A Velocity 121.0 (40-130 cm/s) E/A Ratio 0.71 MV PHT 44.0 ms Left Ventricle The left ventricle is normal size. The left ventricular systolic function is normal. The left ventricular ejection fraction is within the normal range. There is marked increase in LV wall thickness. IVSD is 1.4 cm. There is normal LV segmental wall motion. Transmitral Doppler flow pattern suggests impaired LV relaxation. LVEF is 65%. Right Ventricle The right ventricle is normal size. The right ventricular systolic function is normal. Atria The left atrium size is normal. The right atrium size is normal. There is no Doppler evidence of interatrial shunt. Aortic Valve Aortic valve is mildly thickened. There is no hemodynamically significant aortic stenosis. No aortic regurgitation is present. Mitral Valve Mild mitral annular calcification. The mitral valve leaflets are mildly thickened. No evidence of mitral valve stenosis. Trace mitral regurgitation. Tricuspid Valve The tricuspid valve leaflets are thin and pliable. Mild tricuspid regurgitation. RVSP is normal. Pulmonic Valve The pulmonary valve is normal in structure. Trace pulmonic regurgitation. Great Vessels The aortic root is normal in size. The ascending aorta is not well-visualized. IVC is normal in size and collapses >50% with inspiration. Pericardium There is no pericardial effusion. Other Information Study Quality: Technically Difficult Conclusion Technically difficult study due to poor acoustic windows. Normal biventricular systolic function. Mild TR. Electronically signed by : Amita Rosales MD 01/21/2024 01:07:56
--- OUTSIDE RECORDS SUMMARY | 2024-01-15 14:01 | XMS_ITS ---
Author Organization [facility] Address [address] [place] [address] Care Team Providers Care Senior Care Manager Name Role Phone Callie Paddy Unavailable [phone] Encounters Encounter Location Date Provider Diagnosis [address] [place] [address] 07/27/2022 Paddy Callie Plan Of Treatment No Information Progress Notes * FLORIAN DALY LDOB:[birth year] (66 yo F)Acc No.[id number]:07/27/2022 Patient:?FLOIRAN DALY :1955???Age:66 Y???Sex:Female Address:[address] [facility] [place] [address] * true * Date:? Generated for Alexi priscila/Mary/eTransmitting on:?01/15/2024 02:01 PM EDT
--- OUTSIDE RECORDS SUMMARY | 2024-01-15 14:01 | XMS_ITS ---
Author Organization [facility] Address [address] [place] [address] Care Team Providers Care Special Education Educational Assistant Name Role Phone Paddy Ledesma DO [phone] Medications Medication SIG (Take, Route, Fr equency, Duration) Notes Start Date End Date Status Movantik 25 MG 1 tablet in the morn ing Orally Once a day for 90 days 07/20/2022 Active Encounters Encounter Location Date Provider Diagnosis [place] [facility] [address] [place] [address] 07/27/2022 Paddy Callie Drug induced constipation K59.03 Assessments Encounter Date Diagnosis (ICD Code) Assessment Notes Treat ment Notes Treatment Clinical Notes 07/27/2022 Drug induced constipation (ICD-10 - K59.03) Plan Of Treatment Medication Medication Name Sig Start Date Stop Date Notes Movantik 25 MG 1 tablet in the morn ing Orally Once a day for 90 days 07/20/2022 Progress Notes * FLORIAN GONZALEZ LDOB:[birth year] (66 yo F)Acc No.[id number]:07/27/2022 Patient:?FLORIAN GONZALEZ :1955???Age:66 Y???Sex:Female Address:[address] [facility] [place] [address] * Refills? Refill Movantik Tablet, 25 MG, Orally, 90 Tablet, 1 tablet in the morning, Once a day, 90 days, Refills=4 * true * Date:? Generated for Alex francois/Mary/eTransmitting on:?01/15/2024 02:01 PM EDT
--- OUTSIDE RECORDS SUMMARY | 2024-01-15 14:02 | XMS_ITS | Patient Health Record ---
Author Organization [facility] Address [address] [address] Care Team Providers Care Processing Specialist Name Role Phone Paddy Ledesma DO Unavailable [phone] Allergies Allergen (clinical drug ingredient) Drug/Non Drug Allergy documented on EMR Reaction Allergy Type Onset Date Status spironolactone Spironolactone Unknown Drug Allergy Active Substance with beta adrenergic receptor antagonist mechanism of action (substance) Beta Adrenergic Blockers Unknown Drug Allergy Active Latex Latex Unknown Allergy Active Penicillin rash Drug Allergy Active Reason For Referral No Information Medications Medication SIG (Take, Route, Frequency, Duration) Notes Start Date End Date Status Ciprofloxacin HCl 500 MG Oral for 14 Days Active Lantus SoloStar 100 UNIT/ML Subcutaneous for 100 Days Active Azithromycin 250 MG Oral for 5 Days Active traZODone HCl 50 MG Oral for 30 Days Active Ezetimibe 10 MG Oral for 90 Days Active NIFEdipine ER 60 MG Oral for 90 Days Active Movantik 25 MG 1 tablet in the morn ing Orally Once a day for 90 days Active Janumet XR 100-1000 MG Oral for 90 Days Active Losartan Potassium 100 MG Oral for 90 Days Active Omeprazole 40 MG Oral for 90 Days Active traMADol HCl 50 MG Oral for 30 Days Active Meloxicam 7.5 MG Oral for 90 Days Active methylPREDNISolone 4 MG Oral for 6 Days Active rOPINIRole HCl 1 MG Oral for 90 Days Active Topiramate 50 MG Oral for 90 Days Active Atorvastatin Calcium 40 MG Oral for 90 Days Active HumaLOG KwikPen 100 UNIT/ML Subcutaneous for 75 Days Active Problems Problem Type SNOMED Code ICD Code Onset Dates Problem Status W/U Status Risk Notes Problem 11888188 Type 2 diabetes mellitus with other specified complication (E11.69) Active confirmed Problem 901547168 Gastroparesis (K31.84) Active confirmed I suspect that her gastroparesis is multifactorial from poorly controlled diabetes and use of opioid analgesics. She also has underlying constipation with suspected overflow incontinence suspect related to her chronic back issues and suspected neuropathy. She will be increased back up to 10 mg of domperidone 30 minutes prior to meals. I did give her samples of Gimoti to take with her. I did not instruct her to start this yet. She might use intranasal metoclopramide if she did not respond to domperidone. Patient was told not to take this until further instructed. I do think that she would benefit from a diabetic gastric paretic diet. We talked about this in detail. I will obtain her prior records of her recent endoscopy. She should follow-up with us in 3 months. I am also going to give her some Movantik for her opioid-induced constipation. Further recommendations will follow pending her clinical course and after review of her records. Problem 129000143 senior care (current) use of insulin (Z79.4) Active confirmed Problem Drug-induced constipation (72572008) Drug induced constipation (K59.03) Active confirmed Problem 23904194 Incontinence of feces, unspecified fecal incontinence type (R15.9) Active confirmed Problem 50037160 Chronic constipation with overflow (K59.09) Active confirmed Plan Of Treatment No Information Insurance Providers Payer Name Payer Address Payer Phone Subscriber Number Group Number Insured Name Patient Relationship to Insured Coverage Start Date Coverage End Date [facility] [address] [address] [place], [place] [id number] FLORIAN DALY Self - patient is the insured Medical (General) History Medical History History ICD Code Diabetes mellitus, type II Hypertension Surgical History Surgery Date(Month/Year) Tubal Ligation spinal nerve sheath tumor
== END 2024-01-15 23:59 | disposition home or self-care (01) ==
LOC: RT 13:59
PROVIDERS: PCP Nurse Practitioner Family; Visit Provider Nurse Practitioner Family
DX: I36.1 Nonrheumatic tricuspid (valve) insufficiency (principal); R06.09 Other forms of dyspnea
CPT/HCPCS: 93306

== ENCOUNTER 2024-01-23 09:50 | Outpatient (CLI) | payer MEDICARE, SELFPAY ==
--- OUTSIDE RECORDS SUMMARY | 2024-01-23 09:53 | XMS_ITS ---
Author Organization [facility] Address [address] [place] [address] Care Team Providers Care Anthropologist Name Role Phone Callie Paddy Unavailable [phone] Encounters Encounter Location Date Provider Diagnosis [place] [place] [address] 07/27/2022 Paddy Callie Plan Of Treatment No Information Progress Notes * FLORIAN DALY LDOB:[birth year] (66 yo F)Acc No.[id number]:07/27/2022 Patient:?FLORIAN DALY :1955???Age:66 Y???Sex:Female Address:[address] [facility] [address] * true * Date:? Generated for Alexi priscila/Mary/eTransmitting on:?01/23/2024 09:52 AM EDT
--- OUTSIDE RECORDS SUMMARY | 2024-01-23 09:53 | XMS_ITS ---
Author Organization [facility] Address [address] [place] [address] Care Team Providers Care Assistant Corporate Secretary Name Role Phone Paddy Ledesma DO [phone] Medications Medication SIG (Take, Route, Fr equency, Duration) Notes Start Date End Date Status Movantik 25 MG 1 tablet in the morn ing Orally Once a day for 90 days 07/20/2022 Active Encounters Encounter Location Date Provider Diagnosis [place] [facility] [address] [place] [address] 07/27/2022 Paddy Callie Drug induced constipation K59.03 [...] FLORIAN GONZALEZ LDOB:[birth year] (66 yo F)Acc No.[id number]:07/27/2022 Patient:?FLORIAN GONZALEZ :1955???Age:66 Y???Sex:Female Address:[address] [facility] [place] [address] * Refills? Refill Movantik Tablet, 25 MG, Orally, 90 Tablet, 1 tablet in the morning, Once a day, 90 days, Refills=4 * true * Date:? Generated for Alex francois/Mary/eTransmitting on:?01/23/2024 09:52 AM EDT
--- OUTSIDE RECORDS SUMMARY | 2024-01-23 09:53 | XMS_ITS | Patient Health Record ---
Author Organization [facility] Address [address] [address] Care Team Providers Care Field Installer Name Role Phone Paddy Ledesma DO Unavailable [phone] Allergies Allergen (clinical drug ingredient) Drug/Non Drug [...] Problem Status W/U Status Risk Notes Problem 52522137 Type 2 diabetes mellitus with other specified complication (E11.69) Active confirmed Problem 016939451 Gastroparesis (K31.84) Active confirmed I suspect that [...] and after review of her records. Problem 803343839 senior care (current) use of insulin (Z79.4) Active confirmed Problem Drug-induced constipation (97928579) Drug induced constipation (K59.03) Active confirmed Problem 71703117 Incontinence of feces, unspecified fecal incontinence type (R15.9) Active confirmed Problem 11260061 Chronic constipation with overflow (K59.09) Active confirmed Plan Of Treatment No Information Insurance Providers Payer Name Payer Address Payer Phone Subscriber Number Group Number Insured Name Patient Relationship to Insured Coverage Start Date Coverage End Date [facility] [address] [address] [place], [place] [id number] FLORIAN DALY Self - patient is the insured Medical (General) History Medical History History ICD Code Diabetes mellitus, type II Hypertension Surgical History Surgery Date(Month/Year) Tubal Ligation spinal nerve sheath tumor
== END 2024-01-23 23:59 | disposition home or self-care (01) ==
LOC: RT 09:51
PROVIDERS: PCP Nurse Practitioner Family; Visit Provider Nurse Practitioner Family
DX: R06.02 Shortness of breath (principal); R05.1 Acute cough
CPT/HCPCS: 94060

== ENCOUNTER 2024-02-01 11:28 | Outpatient (CLI) | payer MEDICARE, SELFPAY ==
[2024-02-01 12:02] LABS: Basophils # 0.1 K/mm3 (0-0.2); Basophils % 1.5 % (0.1-2.0); Eosinophils # 0.1 K/mm3 (0.0-0.4); Eosinophils % 1.6 % (0.1-12.0); Hematocrit 47.9 % (37.0-47.0); Hemoglobin 15.7 g/dL (12.2-16.2); Lymphocytes # 1.6 K/mm3 (0.7-4.5); Lymphocytes % 21.1 % (10-50); Mean Corpuscular HGB Conc 32.9 g/dL (31.8-35.4); Mean Corpuscular Hemoglobin 28.9 pg (27.0-31.2); Mean Corpuscular Volume 87.8 fl (81-99); Mean Platelet Volume 8.4 fl (7.4-10.4); Monocytes # 0.3 K/mm3 (0.1-1.0); Monocytes % 4.1 % (1.7-9.3); Neutrophils # 5.5 K/mm3 (1.8-7.8); Neutrophils % 71.7 % (37.0-80.0); Platelet Count 277 K/mm3 (142-424); Red Blood Count 5.45 M/mm3 (4.20-5.40); Red Cell Distribution Width 14.3 % (11.5-17.5); White Blood Count 7.7 K/mm3 (4.8-10.8)
[2024-02-01 12:22] LABS: Albumin Level 4.4 g/dl (3.5-5.0); Chloride 103 mmol/L (98-107)
[2024-02-01 12:23] LABS: Potassium 4.7 mmoL/L (3.5-5.1); Sodium 140 mmol/L (136-145)
[2024-02-01 12:25] LABS: Anion Gap 12.7 mEq/L (5-15); Bilirubin,Unconjugated 0.7 mg/dL (0.0-1.1); Blood Urea Nitrogen 14 mg/dl (7-17); Carbon Dioxide 29 mmol/L (22.0-30.0); Estimated Glomerular Filt Rate 123 ml/min (>60); GFR (African American) 149 ML/MIN (>60); Total Protein,Serum 7.5 g/dl (6.3-8.2)
[2024-02-01 12:26] LABS: Alanine Aminotransferase 72 U/L (12-78); Alkaline Phosphatase 162 U/L (38-126); Aspartate Amino Transferase 74 U/L (14-36); Bilirubin,Direct 0.2 mg/dl (0.0-0.4); Bilirubin,Indirect 0.7 mg/dL (0.0-0.9); Bilirubin,Total 0.9 mg/dl (0.2-1.3); Calcium 9.7 mg/dl (8.4-10.2); Chol/HDL Ratio 5.1 (1-3.5); Cholesterol 267 mg/dl (140-200); Glucose 176 mg/dl (74-100); HDL Cholesterol 52 mg/dl (40-60); Triglycerides 186 mg/dl (30-150); VLDL Cholesterol 37 mg/dL (0-40)
[2024-02-01 12:37] LABS: Direct LDL Cholesterol 188.83 mg/dL (100-129)
[2024-02-01 12:41] LABS: Free T4 (Free Thyroxine) 1.08 ng/dl (0.78-2.19)
[2024-02-01 12:56] LABS: Thyroid Stimulating Hormone 1.88 uIU/mL (0.465-4.68)
[2024-02-04 15:10] LABS: Albumin 3.5 g/dL (2.9-4.4); Alpha-1-Globulin 0.3 g/dL (0.0-0.4); Free Kappa Lt Chains 23.9 mg/L (3.3-19.4); Free Lambda Lt Chains 15.4 mg/L (5.7-26.3); Gamma Globulin 1.1 g/dL (0.4-1.8); Protein, Total 7.1 g/dL (6.0-8.5)
[2024-02-05 13:12] LABS: Immunoglobulin A, Qn 264 mg/dL (87-352); Immunoglobulin G, Qn 1091 mg/dL (586-1602); Immunoglobulin M, Qn 164 mg/dL (26-217)
[2024-02-05 14:13] LABS: Albumin, U 29.8 % (.); Alpha-1-Globulin, U 4.1 % (.); Alpha-2-Globulin, U 16.2 % (.); Beta Globulin, U 26.3 % (.); Gamma Globulin, U 23.6 % (.); M-Spike, % Not Observed % (Not Observed); Protein,Total,Urine 14.7 mg/dL (Not Estab.)
[2024-02-27 08:33] LABS: PDF SCANNED IMAGE
[2024-02-27 10:49] LABS: PDF: SCANNED IMAGE
== END 2024-02-01 23:59 | disposition home or self-care (01) ==
LOC: LAB 11:29
PROVIDERS: PCP Nurse Practitioner Family; Visit Provider Internal Medicine
DX: I51.89 Other ill-defined heart diseases (principal); I50.30 Unspecified diastolic (congestive) heart failure; R06.02 Shortness of breath; R60.9 Edema, unspecified; R73.9 Hyperglycemia, unspecified; E03.9 Hypothyroidism, unspecified; I10 Essential (primary) hypertension; R07.89 Other chest pain; R60.0 Localized edema; R40.0 Somnolence; E78.2 Mixed hyperlipidemia
CPT/HCPCS: 36415; 80048; 80061; 80076; 82784; 83883; 84155; 84156; 84165; 84166; 84439; 84443; 85025; 86334; 86335

== ENCOUNTER 2024-02-04 12:34 | Outpatient (CLI) | payer MEDICARE, SELFPAY ==
--- OUTSIDE RECORDS SUMMARY | 2024-02-04 12:38 | XMS_ITS | Patient Health Record ---
Author Organization [facility] Address [address] [address] Care Team Providers Care Mushroom Grower Name Role Phone Paddy Ledesma DO Unavailable [phone] Allergies Allergen (clinical drug ingredient) Drug/Non Drug [...] Problem Status W/U Status Risk Notes Problem 90375153 Type 2 diabetes mellitus with other specified complication (E11.69) Active confirmed Problem 319859824 Gastroparesis (K31.84) Active confirmed I suspect that [...] and after review of her records. Problem 219120448 penitentiary (current) use of insulin (Z79.4) Active confirmed Problem Drug-induced constipation (59805593) Drug induced constipation (K59.03) Active confirmed Problem 75845268 Incontinence of feces, unspecified fecal incontinence type (R15.9) Active confirmed Problem 59512907 Chronic constipation with overflow (K59.09) Active confirmed Plan Of Treatment No Information Insurance Providers Payer Name Payer Address Payer Phone Subscriber Number Group Number Insured Name Patient Relationship to Insured Coverage Start Date Coverage End Date [facility] [address] [address] [place], [place] [id number] FLORIAN DALY Self - patient is the insured Medical (General) History Medical History History ICD Code Diabetes mellitus, type II Hypertension Surgical History Surgery Date(Month/Year) Tubal Ligation spinal nerve sheath tumor
[2024-02-04 13:33] LABS: Total Protein,Serum 7.6 g/dl (6.3-8.2)
[2024-02-06 14:49] LABS: Albumin, U 24.8 % (.); Alpha-1-Globulin, U 17.6 % (.); Alpha-2-Globulin, U 17.6 % (.); M-Spike, % Not Observed % (Not Observed); Prot,24hr calculated 148 mg/24 hr (30-150); Protein,Total,Urine 4.9 mg/dL (Not Estab.)
[2024-02-27 10:49] LABS: PDF: SCANNED IMAGE
== END 2024-02-04 23:59 | disposition home or self-care (01) ==
LOC: LAB 12:35
PROVIDERS: PCP Nurse Practitioner Family; Visit Provider Internal Medicine
DX: I50.30 Unspecified diastolic (congestive) heart failure (principal); R06.02 Shortness of breath; R73.9 Hyperglycemia, unspecified; E03.9 Hypothyroidism, unspecified; I51.89 Other ill-defined heart diseases; I10 Essential (primary) hypertension; R07.89 Other chest pain; R60.0 Localized edema; R40.0 Somnolence; E78.2 Mixed hyperlipidemia
CPT/HCPCS: 36415; 84155; 84156; 84166

== ENCOUNTER 2024-02-08 07:32 | Outpatient (CLI) | payer MEDICARE, SELFPAY ==
--- NOTE | 2024-02-08 07:32 | CT_ITS ---
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 A noncontrast coronary calcium scan was performed. A CT attenuation threshold of 130 Hounsfield units (HU) was used for the detection of calcium in contiguous voxels of 1 sq mm in area to be counted as individual lesions. Bolus tracking in the ascending aorta with a threshold of 180 HU was performed. Immediately afterwards, ECG synchronized cardiac CT was then performed from the cardiac base to apex using retrospective gating with ECG tube current modulation. A total of 85 mL of Isovue 370 mg/mL contrast medium was administered at 5 mL/sec followed by a saline flush using a biphasic injection protocol. A tube voltage of 120 KVp was used. The patient received the following medications prior to the cardiac CT. 15 mg of oral ivabradine 0.8 mg of sublingual nitroglycerin The average heart rate at the time of acquisition was 83 bpm and regular. Image Reconstruction Transaxial images were reconstructed at 0.67 mm slide thickness. Data was reviewed interactively on an advanced workstation capable of 2 and 3-dimensional displays in all conventional reconstruction formats, including multiplanar reformations, maximum intensity projections, curved multiplanar reformations, and volume rendered reconstructions. When applicable, selected routine images describing the relevant coronary anatomy and pathology were saved and sent to PACS. Complications None Technical Quality Overall image quality was fair (elevated HR at the time of image acquisition). Coronary artery opacification was adequate. Total DLP (Dose-Length Product) is 1279.7 mGy-cm. The reported value represents the total of one or more individual components during the CT acquisition of this date and at this time, and as such, the same value may appear in more than one CT report depending on the interpreting/reporting physicians. COMPARISON None FINDINGS CT Coronary Calcium Scoring LMA (Left Main Artery) = 1 LAD (Left Anterior Descending) = 222 LCX (Left Coronary Circumflex) = 0 RCA (Right Coronary Artery) = 187 Total Calcium Score = 410 using the AJ-130 method. The observed calcium score of 410 is at 93rd percentile for subjects of the same age, sex, and race/ethnicity. The interpretation of the calcium heart score is based on the following continuum*: 0 = no calcified plaque detected (risk of coronary artery disease is very low ??? less than 5%) 1-10 = calcium detected in extremely minimal levels (risk of coronary diseases is still low ??? less than 10%) 11-100 = mild levels of plaque detected with certainty (mild or minimal narrowing of heart arteries is likely) 101-400 = definite,at least moderate levels of plaque detected (relatively high risk of a heart attack within 3-5 years) >401-999 = extensive levels of plaque detected (high risk of heart attack, high levels of vascular disease are present, high likelihood of at least one significant coronary narrowing) *The calcium heart score quantifies the burden of coronary calcification/plaque in the coronary arteries. The calcium heart score is not able to evaluate the presence or burden of non-calcified (i.e. soft) plaque. There is calcification in the aortic valve, the mitral annulus, and the descending thoracic aorta. Coronary CT Angiography The coronary arterial system is right dominant. Quantitative Stenosis Grading: Left Main (LM): The left main originates normally from the left sinus of Valsalva. The LM bifurcates into the left anterior descending artery and left circumflex artery. There is calcified plaque noted in the distal LM segment, with no evidence of luminal stenosis. Left Anterior Descending (LAD) and Diagonal Branches: The LAD gives off 3 diagonal branch(es). There is mixed calcified/noncalcified plaque in the proximal LAD and the first diagonal branch, with up to 25-49% luminal stenosis. There is no evidence of LAD-myocardial bridge. Left Circumflex (LCX) and Obtuse Marginals (OM): The LCX gives off 1 Obtuse Marginal (OM) branch(es). There is mixed calcified/noncalcified plaque in the proximal LCx segment with up to 25-49% luminal stenosis. Right Coronary Artery (RCA): The RCA originates normally from the right sinus of Valsalva. The RCA gives off a posterior descending artery (PDA) and posterolateral (PL) branches. There is a segment of the proximal RCA that could not be evaluated due to significant motion. In the available segments of the RCA, there is mixed calcified/noncalcified plaque in the proximal RCA segment, with up to 25-49% luminal stenosis. Non-Coronary Cardiac Findings: Analysis of the left ventricular (LV) structure and function was performed after 3-D reconstruction of the LV from axial images, with user-corrected automatic contouring for assessment of LV volumes and user-defined reconstruction from oblique planes for measurement of 3-D cardiac structure and function. -The left ventricle systolic function is normal. -There is no left atrial appendage filling defect. Two right pulmonary veins and two left pulmonary veins drain normally into the left atrium. -No pericardial thickening or calcification. -Central and branch pulmonary arteries in the [id number] are unremarkable. -Thoracic aorta within the visualized thoracic aortic-branches in the [id number] is unremarkable. Extracardiac Structures No significant extra-cardiac findings. Note, however, that this study is focused on the cardiac findings. IMPRESSION -Suboptimal image quality due to elevated HR at the time of image acquisition, resulting in blurring and image artifact. A segment of the proximal RCA cannot be evaluated due to significant motion. -Presence of coronary calcification with an Agatston score = 410 using the AJ-130 method. -The observed calcium score of 410 is at 93rd percentile for subjects of the same age, sex, and race/ethnicity. -Mild, nonobstructive atherosclerotic multivessel coronary disease, with no evidence of significant flow-limiting atherosclerosis of the coronary arteries. A small segment of the proximal RCA could not be evaluated due to significant motion. -CAD-RADS 2. Management recommendations per ACC/AHA guidelines*, as clinically appropriate. *Recommendations: CAD RADS 0: Reassurance. Consider non-atherosclerotic causes of chest pain. CAD RADS 1: Consider non-atherosclerotic causes of chest pain. Consider preventive therapy and risk factor modification. CAD RADS 2: Consider non-atherosclerotic causes of chest pain. Consider preventive therapy and risk factor modification, particularly for patients with nonobstructive plaque in multiple segments. CAD RADS 3: Consider further functional testing. Consider symptom-guided anti-ischemic and preventive pharmacotherapy as well as risk factor modification per published guideline statements. CAD RADS 4A: Consider further functional testing or invasive coronary angiography with revascularization per published guideline statements. Consider symptom-guided anti-ischemic and preventive pharmacotherapy as well as risk factor modification per published guideline statements. CAD RADS 4B: Invasive coronary angiography recommended with revascularization per published guideline statements. Consider symptom-guided anti-ischemic and preventive pharmacotherapy as well as risk factor modification per published guideline statements. CAD RADS 5: Consider invasive angiography and/or viability assessment with revascularization per published guideline statements. Consider symptom-guided anti-ischemic and preventive pharmacotherapy as well as risk factor modification per published guideline statements. CRITICAL RESULT None COMMUNICATION Per this written report The coronary and cardiac findings of this CCTA were reviewed, reported, and signed by Fred Rosales MD ([employer]) Conclusion Electronically signed by : Amita Rosales MD 02/13/2024 12:00:21
[2024-02-08 07:42] VITALS: BMI 34.4
[2024-02-08] MEDS: IVABRADINE HCL 7.5MG TABLET PO (08:03)
[2024-02-08 08:05] VITALS: BMI 34.2
[2024-02-08 09:20] VITALS: BP 174/90; PULSE 80; RESP 18; O2SAT 94
[2024-02-08] MEDS: NITROGLYCERIN 0.4MG SL TABLET SL (09:20)
[2024-02-08 09:25] VITALS: BP 140/85; PULSE 79; RESP 18; O2SAT 95
[2024-02-08] MEDS: SODIUM CHLORIDE 0.9% 10ML SYR (RAD ONLY) 10 ML IV (09:27)
[2024-02-08] MEDS: 0.9 % SODIUM CHLORIDE 50 ML VIAL IV (09:27)
[2024-02-08] MEDS: IOPAMIDOL-370 (76%);100ML BOTTLE 85 ML IV (09:28)
[2024-02-08 09:30] VITALS: BP 103/67; PULSE 86; RESP 18; O2SAT 97
[2024-02-08 09:40] VITALS: BP 140/62; PULSE 78; RESP 16; O2SAT 95
== END 2024-02-08 09:40 | disposition home or self-care (01) ==
PROVIDERS: PCP Nurse Practitioner Family; Visit Provider Internal Medicine
DX: I25.119 Atherosclerotic heart disease of native coronary artery with unspecified angina pectoris (principal); I70.0 Atherosclerosis of aorta; I34.81 Nonrheumatic mitral (valve) annulus calcification; I11.0 Hypertensive heart disease with heart failure; I50.30 Unspecified diastolic (congestive) heart failure; R06.02 Shortness of breath; R60.9 Edema, unspecified; R73.9 Hyperglycemia, unspecified; R07.89 Other chest pain; R60.0 Localized edema; R40.0 Somnolence; E78.2 Mixed hyperlipidemia
CPT/HCPCS: 75574; Q9967

== ENCOUNTER 2024-02-20 09:04 | Outpatient (CLI) | payer MEDICARE, SELFPAY ==
--- OUTSIDE RECORDS SUMMARY | 2024-02-20 09:06 | XMS_ITS | Encounter Summary ---
[facility] Address [address] [place] [id number] Care Team Providers Care Injection Machine Operator Name Role Phone Alex Davis MD Primary Care Provider [phone] Reason for Visit * Reason Onset Date Comments Med Refill 07/26/2023 Encounter Details Date Type Department Care Team (Late st Contact Info) Description 07/26/2023 Refill [facility] [address] [place] [address] Alex Davis MD [address] [place] [address] Postlaminectomy syndrome of lumbar region; Herniated lumbar intervertebral disc Social History Tobacco Use Types Packs/Day Years Used Date Smoking Tobacco: Never Smokeless Tobacco: Never Alcohol Use Standard Drinks/Week Comments No 0 (1 standard drink = 0.6 oz pur e alcohol) PHQ-2 Answer Date Recorded Retired PHQ-9: Brief Depression Severity Measure Score 4 02/27/2023 Abuse Screen Answer Date Recorded Unsafe at Home or Work/School Not on file Feels Threatened by Someone? Not on file 12/2022 Does Anyone Keep You from Co ntacting Others or Doint Things Outside the Home? Not on file 01/08/2023 Physical Sign of Abuse Present Not on file 1 Housing Stability Answer Date Recorded Current Living Arrangements Not on file 12/2022 Potentially Unsafe Housing Conditions Not on ciro e 01/08/2023 Family and Community Support Answer Canelo e Recorded Help with Day-to-Day Activities Not on file 01/08/2023 Lonely or Isolated Not on file 01/08/2023 Employment Answer Date Recorded Do you want help finding or keeping work or a naty b? Not on file 01/08/2023 Disabilities Answer Date Recorded Concentrating, Remembering, or Making Decisions Difficulty Not on file 01/08/2023 Doing Errands Independently Difficulty Not on fi le 01/08/2023 Education Answer Date Recorded Help with school or training? Not on file Preferred Language Not on file 01/08/2023 PHQ-2 Answer Date Recorded Retired PHQ-9: Brief Depression Severity Measure Score 4 02/27/2023 Comments No Sex and Gender Information Value Date Recorded Sex Assigned at Not on file Legal Sex Female 10:25 AM EDT Gender Identity Not on file Sexual Orientation Not on file documented as of this encounter Miscellaneous Notes * Telephone Encounter - [place] RegSched Rep - 07/26/2023 1:55 PM EDT Caller: Gertrudis Gonzalez Relationship: Self Best call back number: [phone] Requested Prescriptions: Requested Prescriptions Pending Prescriptions Disp Refills traMADol (ULTRAM) 50 MG tablet 90 tablet 1 Sig: Take 1 tablet by mouth Every 8 (Eight) Hours As Needed for Moderate Pain. 90 DAY SUPPLY Pharmacy where request should be sent: [facility] - [address] [phone] [facility] [phone] Last office visit with prescribing clinician: 05/30/2023 Last telemedicine visit with prescribing clinician: Visit date not found Next office visit with prescribing clinician: 08/29/2023 Additional details provided by patient: Does the patient have less than a 3 day supply: [] Yes [x] No Would you like a call back once the refill request has been completed: [x] Yes [] No If the office needs to give you a call back, can they leave a voicemail: [x] Yes [] No Slava Sanchez 07/26/23 13:56 EDT documented in this encounter Plan of Treatment Upcoming Encounters Date Type Department Care Team (Late st Contact Info) Description 03/13/2024 2:45 PM EST Office Visit [facility] [address] [place] [id number] Pj Ace MD [address] [facility] [facility] [address] [place] [address] documented as of this encounter Visit Diagnoses Diagnosis Postlaminectomy syndrome of lumbar region Postlaminectomy syndrome, lumbar region Herniated lumbar intervertebral disc Displacement of lumbar intervertebral disc without myelopathy documented in this encounter Additional Health Concerns Assessment Noted Time PHQ-2 Depression Total Score: 4 02/28/20 23 11:21 AM EST documented as of this encounter Care Teams Injection Machine Operator Relationship Specialty Start Date End Date Alex Davis MD [address] [place] [address] PCP - General Family Medicine 09/05/21 documented as of this encounter
--- OUTSIDE RECORDS SUMMARY | 2024-02-20 09:06 | XMS_ITS | Encounter Summary ---
[facility] [address] [place] [address] Care Team Providers Care Hospitality Director Name Role Phone Alex Davis MD Primary Care Provider [phone] Reason for Visit * Reason Onset Date Comments Med Refill 09/03/2023 Encounter Details Date Type Department Care Team (Late st Contact Info) Description 09/03/2023 Refill [facility] [address] [place] [address] Alex Davis MD [address] [place] [address] Primary hypertension Social History Tobacco Use Types Packs/Day Years [...] encounter Miscellaneous Notes * Telephone Encounter - Diogenes Magdaleno RegSched Rep - 09/03/2023 2:55 PM EDT Pt attempted to return call to Dinah, * Telephone Encounter - Dinah Noyola MA - 09/03/2023 2:41 PM EDT Refilled 05/30 #90 w/1 rf. LVM. * Telephone Encounter - Mat Dick RegSched Rep - 09/03/2023 10:09 AM EDT Caller: Gertrudis Gonzalez Relationship: Self Best call back number: [phone] Requested Prescriptions: Requested Prescriptions Pending Prescriptions Disp Refills losartan (COZAAR) 100 MG tablet 90 tablet 1 Sig: Take 1 tablet by mouth Daily. Pharmacy where request should be sent: [facility] [address] [place] [address] [facility] [phone] Last office visit with prescribing clinician: 05/30/2023 Last telemedicine visit with prescribing clinician: Visit date not found Next office visit with prescribing clinician: Visit date not found Additional details provided by patient: Does the patient have less than a 3 day supply: [x] Yes [] No YoselynMatiasSlava Almaraz Rep 09/03/23 10:09 EDT documented in this encounter Plan of Treatment Upcoming Encounters Date Type Department Care Team (Late st Contact Info) Description 03/13/2024 2:45 PM EST Office Visit [facility] C[facility] [address] [place] [id number] Pj cAe MD [address] [facility] [address] [address] documented as of this encounter Visit Diagnoses Diagnosis Primary hypertension Unspecified essential hypertension documented in this encounter Additional Health Concerns Assessment Noted Time PHQ-2 Depression Total Score: 4 02/28/20 23 11:21 AM EST documented as of this encounter Care Teams Hospitality Director Relationship Specialty Start Date End Date Alex Davis MD [address] [place] [address] PCP - General Family Medicine 09/05/21 documented as of this encounter
--- OUTSIDE RECORDS SUMMARY | 2024-02-20 09:06 | XMS_ITS | Encounter Summary ---
[facility] [address] [place] [address] Care Team Providers Care Child Care Group Leader Name Role Phone Alex Davis MD Primary Care Provider [phone] Reason for Referral * Diagnostic Imaging (Routine) - Closed Specialty Diagnoses / Procedures Referred By Contac t Referred To Contact Radiology Diagnoses Screening mammogram for breast cancer Procedures Mammo Screening Digital Tomosynthesis Bilateral With CAD Alex Davis MD [address] [place] [id number] Phone: tel: fax: [facility] [address] [place] [address] Phone: tel: Referral ID Status Reason Start Date Expiration Date Visits Re quested Visits Authorized [id number] Closed 02/27/2023 02/27/2024 1 1 Reason for Visit * Diagnostic Imaging (Routine) - Closed Specialty Diagnoses / Procedures Referred By Contac t Referred To Contact Radiology Diagnoses Screening mammogram for breast cancer Procedures Mammo Screening Digital Tomosynthesis Bilateral With Alex Heard MD [address] [place] [address] Phone: tel: fax: [facility] [address] [place] [address] Phone: tel: Referral ID Status Reason Start Date Expiration Date Visits Re quested Visits Authorized [id number] Closed 02/27/2023 02/27/2024 1 1 Encounter Details Date Type Department Care Team (Latest Contact Info) Description 06/12/2023 2:28 PM EDT - 06/12/2023 11:59 PM EDT Hospital Encounter [facility] [address] [place] [address] Alex Davis MD [address] [address] Screening mammogram for breast cancer Discharge Disposition: Home or Self Care Social History Tobacco Use Types Packs/Day Years [...] on file documented as of this encounter Medications at Time of Discharge bethanechol (URECHOLINE) 50 MG tablet Take 1 tablet by mouth 2 (Two) Times a Day. 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 9 each 5 05/30/2023 Continuous Blood Gluc Transmit (Dexcom G6 Transmitter) miscIndications:Con trolled 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, with long-term current use of insulin USE DAILY 1 each 3 04/12/2023 desvenlafaxine (PRISTIQ) 50 MG 24 hr tabletIndications:A nxiety and depression Take 1 tablet by mouth Daily. 90 tablet 1 05/30/2023 docusate sodium (COLACE) 100 MG capsule Take 1 capsule by mouth 2 (Two) Times a Day. donepezil (Aricept) 5 MG tabletIndications:M neville change Take 1 tablet by mouth Every Night. 90 tablet 1 05/30/2023 furosemide (LASIX) 20 MG tablet Take 1 tablet by mouth As Needed. HYDROcodone-acetami nophen (NORCO) 5-325 MG per tablet Take by mouth See Admin Instructions. Take 1 tablet by mouth every 4-6 hours as needed for pain 05/14/2023 Insulin Glargine (LANTUS SOLOSTAR) 100 UNIT/ML injection penIndications:Cont rolled 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, with long-term current use of insulin Inject 68 Units under the skin into the appropriate area as directed Daily. Disp quant suff 45 mL 5 05/30/2023 Insulin Lispro, 1 Unit Dial, (HumaLOG KwikPen) 100 UNIT/ML solution pen-injectorIndicat ions:Uncontrolled type 2 diabetes mellitus with hyperglycemia Take 16 units before meals, correction 2:50 >150, MDD 60U 54 mL 1 07/26/2021 Insulin Pen Needle 32G X 4 MM miscIndications:Unc ontrolled type 2 diabetes mellitus with hyperglycemia Use daily with insulin up to 6 times per day 600 each 3 10/02/2022 meloxicam (MOBIC) 7.5 MG tabletIndications:P ostlaminectomy syndrome of lumbar region,Herniated lumbar intervertebral disc TAKE 1 TABLET BY MOUTH DAILY 90 tablet 3 02/05/2023 metFORMIN ER (GLUCOPHAGE-XR) 500 MG 24 hr tabletIndications:C ontrolled 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, with long-term current use of insulin Take 2 tablets by mouth Daily With Breakfast. 180 tablet 1 05/30/2023 metoclopramide (REGLAN) 5 MG tablet Take 1 tablet by mouth 3 (Three) Times a Day. 04/06/2020 NIFEdipine XL (PROCARDIA XL) 90 MG 24 hr tabletIndications:P rimary hypertension Take 1 tablet by mouth Daily. 90 tablet 1 05/30/2023 POTASSIUM PO Take 1 tablet by mouth Daily. 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 9 mL 1 05/30/2023 topiramate (TOPAMAX) 50 MG tabletIndications:C hronic migraine without aura without status migrainosus, not intractable TAKE 1 TABLET BY MOUTH DAILY NEEDED (MIGRAINE) 90 tablet 3 04/12/2023 traZODone (DESYREL) 50 MG tabletIndications:P rimary insomnia TAKE 1 TO 2 TABLETS BY MOUTH AT BEDTIME NEEDED 180 tablet 3 04/12/2023 ezetimibe (ZETIA) 10 MG tabletIndications:M ixed hyperlipidemia Take 1 tablet by mouth Daily. 90 tablet 1 05/30/2023 12/14/19 24 losartan (COZAAR) 100 MG tabletIndications:P rimary hypertension Take 1 tablet by mouth Daily. 90 tablet 1 05/30/2023 09/03/19 24 omeprazole (priLOSEC) 40 MG capsule TAKE 1 CAPSULE BY MOUTH DAILY 90 capsule 3 10/09/2022 10/01/19 24 traMADol (ULTRAM) 50 MG tabletIndications:P ostlaminectomy syndrome of lumbar region,Herniated lumbar intervertebral disc Take 1 tablet by mouth Every 8 (Eight) Hours As Needed for Moderate Pain. 90 tablet 1 02/19/2023 07/26/19 24 documented as of this encounter Plan of Treatment Upcoming Encounters Date Type Department Care Team (Late st Contact Info) Description 03/13/2024 2:45 PM EST Office Visit [facility] [address] [place] [address] [place] [address] Pj Ace MD [address] [facility] [address] [place] [address] documented as of this encounter Procedures Procedure Name Priority Date/Time Associated Diagnosis Comments MAMMO SCREENING DIGITAL TOMOSYNTHESIS BILATERAL W CAD Routine 06/12/2023 3:02 PM EDT Screening mammogram for breast cancer documented in this encounter Results * Mammo Screening Digital Tomosynthesis Bilateral With CAD (06/12/2023 3:02 PM EDT) Anatomical Region Laterality Modality Breast N/A Mammography 06/18/2023 6:33 PM EDT Impressions 06/18/2023 6:33 PM EDT No findings suspicious for malignancy. ACR BI-RADS CATEGORY: ??1, NEGATIVE RECOMMENDATION: Yearly mammogram, yearly clinical breast exam, and encourage self breast awareness. CAD was used. The standard false negative rate of mammography is between 10% and 25%. Complex patterns or increased breast density will markedly elevate the false negative rate of mammography. A letter, in lay terminology, with the results of this exam will be mailed to the patient. At our facility, a triangular marker is positioned over a palpable area of concern indicated by the patient. A [place] marker is placed over a visible skin lesion. A linear marker indicates a scar. ?? If there is a palpable area of concern, biopsy should be considered regardless of imaging findings. This report was finalized on 06/18/2023 6:[address] Madelaine Stephenson MD. Narrative 06/18/2023 6:33 PM EDT DIGITAL SCREENING MAMMOGRAM WITH TOMOSYNTHESIS HISTORY: Routine screening. IMAGE COMPARISON: 09/28/2021, 01/21/2020. TECHNIQUE: ??Low dose full field digital breast tomosynthesis imaging was performed with 2D and 3D acquisitions consisting of bilateral CC and MLO views. FINDINGS: There are scattered areas of fibroglandular density. The fibroglandular pattern appears stable. ??There is no mass, worrisome microcalcifications, or architectural distortion to suggest development of malignancy. us Alex Davis MD IMG MAMMOGRAPHY ORDERABLES Rosie patel Result documented in this encounter Visit Diagnoses Diagnosis Screening mammogram for breast cancer documented in this encounter Additional Health Concerns Assessment Noted Time PHQ-2 Depression Total Score: 4 02/28/20 23 11:21 AM EST documented as of this encounter Care Teams Child Care Group Leader Relationship Specialty Start Date End Date Alex Davis [facility] [place] [address] PCP - General Family Medicine 09/05/21 documented as of this encounter
--- OUTSIDE RECORDS SUMMARY | 2024-02-20 09:06 | XMS_ITS | Encounter Summary ---
[facility] Address [address] [place] [address] Care Team Providers Care Rope Making Machine Operator Name Role Phone Alex Davis MD Primary Care Provider [phone] Reason for Visit * Reason Comments Med Refill Encounter Details Date Type Department Care Team (Late st Contact Info) Description 10/08/2023 Refill [facility] [address] [facility] [place] [address] Alex Davis MD [address] [facility] [address] Anxiety and depression; Postlaminectomy syndrome of lumbar region; Herniated lumbar intervertebral disc; Primary hypertension Social History Tobacco Use Types [...] encounter Miscellaneous Notes * Telephone Encounter - Sarah Deal RegSched Rep - 10/09/2023 12:06 PM EDT CALLED PATIENT TO SCHEDULE, SHE REQUESTED TO CALL THE OFFICE BACK DUE TO HER NOT BEING HOME TO KNOWHER SCHEDULE AVAILABILITY. HUB TO RELAY AND SCHEDULE documented in this encounter Plan of Treatment Upcoming Encounters Date Type Department Care Team (Late st Contact Info) Description 03/13/2024 2:45 PM EST Office Visit [facility] [address] [facility] [place] [address] Pj Ace MD [address] [place] [address] [address] [place] [address] documented as of this encounter Visit Diagnoses Diagnosis Anxiety and depression Postlaminectomy syndrome of lumbar region Postlaminectomy syndrome, lumbar region Herniated lumbar intervertebral disc Displacement of lumbar intervertebral disc without myelopathy Primary hypertension Unspecified essential hypertension documented in this encounter Additional Health Concerns Assessment Noted Time PHQ-2 Depression Total Score: 4 02/28/20 23 11:21 AM EST documented as of this encounter Care Teams Rope Making Machine Operator Relationship Specialty Start Date End Date Alex Davis MD [address] [facility] [place] [address] PCP - General Family Medicine 09/05/21 documented as of this encounter
--- OUTSIDE RECORDS SUMMARY | 2024-02-20 09:06 | XMS_ITS | Encounter Summary ---
[facility] Address [address] [place] [address] Care Team Providers Care Group Exercise Class Instructor Name Role Phone Alex Davis MD Primary Care Provider [phone] Reason for Visit * Reason Comments Med Refill Encounter Details Date Type Department Care Team (Late st Contact Info) Description 12/14/2023 Refill [facility] [address] [facility] [place] [address] Alex Davis MD [address] [facility] [place] [address] Mixed hyperlipidemia; Chronic idiopathic constipation Social History Tobacco Use Types Packs/Day Years [...] on file documented as of this encounter Plan of Treatment Upcoming Encounters Date Type Department Care Team (Late st Contact Info) Description 03/13/2024 2:45 PM EST Office Visit [facility] [address] [facility] [place] [address] Pj Ace MD [address] [facility] [address] [address] documented as of this encounter Visit Diagnoses Diagnosis Mixed hyperlipidemia Chronic idiopathic constipation Unspecified constipation documented in this encounter Additional Health Concerns Assessment Noted Time PHQ-2 Depression Total Score: 4 02/28/20 23 11:21 AM EST documented as of this encounter Care Teams Group Exercise Class Instructor Relationship Specialty Start Date End Date Alex Davis MD 210 [place] [address] PCP - General Family Medicine 09/05/21 documented as of this encounter
--- OUTSIDE RECORDS SUMMARY | 2024-02-20 09:06 | XMS_ITS | Encounter Summary ---
[facility] Address [address] [place] [address] Care Team Providers Care Central Service Technician Name Role Phone Alex Davis MD Primary Care Provider [phone] Reason for Visit * Reason Comments Med Refill Encounter Details Date Type Department Care Team (Late st Contact Info) Description 09/30/[address] [facility] [address] [facility] [place] [address] Alex Davis MD [address] [facility] [place] [address] Social History Tobacco Use Types Packs/Day Years [...] Description 03/13/2024 2:45 PM EST Office [address] [facility] [address] [facility] [place] [id number] Pj Ace MD 17[address] [facility] [address] [address] documented as of this encounter Visit Diagnoses Not on filedocumented in this encounter Additional Health Concerns Assessment Noted Time PHQ-2 Depression Total Score: 4 02/28/20 23 11:21 AM EST documented as of this encounter Care Teams Central Service Technician Relationship Specialty Start Date End Date Alex Davis MD 210 [place] [address] PCP - General Family Medicine 09/05/21 documented as of this encounter
--- NOTE | 2024-02-20 09:07 | CA_ITS ---
FINAL REPORT TECHNIQUE: Bilateral lower extremity venous duplex was performed with augmentation and compression. CLINICAL HISTORY: left leg pain neuropathy COMPARISON: None FINDINGS: Proper flow is seen throughout the deep venous systems bilaterally. There is no evidence of deep venous thrombosis. IMPRESSION: No evidence of deep venous thrombosis in the lower extremities. Reviewed, Interpreted and Dictated by Everett Nails MD Transcribed by Sarah Jung Authenticated and [facility]
--- OUTSIDE RECORDS SUMMARY | 2024-02-20 09:07 | XMS_ITS | Encounter Summary ---
[facility] Address [address] [place] [address] Care Team Providers Care Senior Account Director Name Role Phone Alex Davis MD Primary Care Provider [phone] Reason for Visit * Reason Comments Med Refill Encounter Details Date Type Department Care Team (Late st Contact Info) Description 04/12/2023 Refill [facility] 210 [facility] [place] [address] Alex Davis MD 210 [place] [address] Primary insomnia; Chronic migraine without aura without status migrainosus, not intractable Social History Tobacco Use Types Packs/Day Years [...] Description 03/13/2024 2:45 PM EST Office Visit [facility] [address] [facility] [place] [address] Pj Ace MD [employer] [address] [address] documented as of this encounter Visit Diagnoses Diagnosis Primary insomnia Persistent disorder of initiating or maintaining sleep Chronic migraine without aura without status migrainosus, not intractable documented in this encounter Additional Health Concerns Assessment Noted Time PHQ-2 Depression Total Score: 4 02/28/20 23 11:21 AM EST documented as of this encounter Care Teams Senior Account Director Relationship Specialty Start Date End Date Alex Davis MD 210 [place] [address] PCP - General Family Medicine 09/05/21 documented as of this encounter
--- OUTSIDE RECORDS SUMMARY | 2024-02-20 09:07 | XMS_ITS | Encounter Summary ---
Author [facility] Address [address] [place] [address] Care Team Providers Care Electric Sign Wirer Name Role Phone Alex Davis MD Primary Care Provider [phone] Reason for Referral * Diagnostic Medical (Routine) - Closed Specialty Diagnoses / Procedures Referred By Contac t Referred To Contact Diagnoses Colon cancer screening Alex Davis MD 210 [place] [address] Phone: tel: fax: Henry Diaz MD [address] [place] [address] Phone: tel: fax: Referral ID Status Reason Start Date Expiration Date V isits Requested Visits Authorized [id number] Closed Specialty Services Required 05/30/2023 05/29/2024 1 1 Reason for Visit * Reason Comments Diabetes Encounter Details Date Type Department Care Team (Latest Contact Info) Description 05/30/2023 10:30 AM EST Office Visit [facility] [address] [place] [address] Alex Davis MD 210 [place] [address] 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, with long-term current use of insulin (Primary Dx); Primary hypertension; Mixed hyperlipidemia; Colon cancer screening; Memory change; Anxiety and depression; Statin intolerance Social History Tobacco Use Types Packs/Day Years [...] on file documented as of this encounter Last Filed Vital Signs Vital Sign Reading Time Taken Comments Blood Pressure 142/72 05/30/2023 10:20 AM EST Pulse 89 05/30/2023 10:20 AM EST Temperature 36.5 ??C (97.7 ??F) 05/30/2023 10:[address] Respiratory Rate 16 05/30/2023 10:20 AM EST Oxygen Saturation 97% 05/30/2023 10:20 AM EST Inhaled Oxygen Concentration - - Weight 83.5 kg (184 lb) 05/30/2023 10:20 AM EST Height 158.8 cm (5' 2.5 ) 05/30/2023 10:20 AM ES T Body Mass Index 33.12 05/30/2023 10:20 AM EST documented in this encounter Progress Notes * Alex Davis MD - 05/30/2023 10:30 AM EST Subjective Gertrudis Gonzalez is a 67 y.o. female. Diabetes Diabetes Mellitus Type II, Follow-up: Gertrudis Gonzalez is a 67 y.o. female who is here for follow-up of Type 2 diabetes mellitus. Current symptoms/problems include none and have been stable. Patient is adherent with medications. Known diabetic complications: none Cardiovascular risk factors: diabetes mellitus, dyslipidemia, hypertension, and obesity (BMI >= 30 kg/m2) Current diabetic medications include lanuts 68, metformin 500 and ozempic 1 . Current monitoring regimen: home blood tests - daily Home blood sugar records: fasting range: doing ok Any episodes of hypoglycemia? no Eye exam current (within one year): yes She is on JORGITO inhibitor or angiotensin II receptor fern. Patient is on a statin. Gertrudis Gonzalez is here for follow-up of hypertension of several years duration. She is not exercising and is not adherent to a low-salt diet. Patient does not check her blood pressure. She is compliant with meds. Gertrudis Gonzalez returns today for follow up of Hyperlipidemia Gertrudis indicates her exercise level as not at all. Diet: unchanged Patient is compliant with medications Any side effects to medications: chest pain No myalgia No memory change No Pt is due for labs The following portions of the patient's history were reviewed and updated as appropriate: allergies, current medications, past family history, past medical history, past social history, past surgicalhistory, and problem list. Review of Systems Constitutional: Negative. Respiratory: Negative. Cardiovascular: Negative. Psychiatric/Behavioral: Negative. Objective Physical Exam Vitals and nursing note reviewed. Constitutional: General: She is not in acute distress. Appearance: Normal appearance. She is well-developed. Cardiovascular: Rate and Rhythm: Normal rate and regular rhythm. Heart sounds: Normal heart sounds. Pulmonary: Effort: Pulmonary effort is normal. Breath sounds: Normal breath sounds. Neurological: Mental Status: She is alert and oriented to person, place, and time. Psychiatric: Mood and Affect: Mood normal. Behavior: Behavior normal. Thought Content: Thought content normal. Judgment: Judgment normal. Assessment & Plan Diagnoses and all orders for this visit: 1. 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 Dispense: 9 each; Refill: 5 - Insulin Glargine (LANTUS SOLOSTAR) 100 UNIT/ML injection pen; Inject 68 Units under the skin intothe appropriate area as directed Daily. Disp quant suff Dispense: 45 mL; Refill: 5 - metFORMIN ER (GLUCOPHAGE-XR) 500 MG 24 hr tablet; Take 2 tablets by mouth Daily With Breakfast. Dispense: 180 tablet; Refill: 1 - Semaglutide, 1 MG/DOSE, (Ozempic, 1 MG/DOSE,) 4 MG/3ML solution pen-injector; Inject 1 mg under the skin into the appropriate area as directed 1 (One) Time Per Week. Dispense: 9 mL; Refill: 1 - CBC & Differential - Comprehensive Metabolic Panel - Hemoglobin A1c 2. Primary hypertension - losartan (COZAAR) 100 MG tablet; Take 1 tablet by mouth Daily. Dispense: 90 tablet; Refill: 1 - CBC & Differential - Comprehensive Metabolic Panel - NIFEdipine XL (PROCARDIA XL) 90 MG 24 hr tablet; Take 1 tablet by mouth Daily. Dispense: 90 tablet; Refill: 1 3. Mixed hyperlipidemia - ezetimibe (ZETIA) 10 MG tablet; Take 1 tablet by mouth Daily. Dispense: 90 tablet; Refill: 1 - Comprehensive Metabolic Panel - Lipid Panel 4. Colon cancer screening - Ambulatory Referral For Screening Colonoscopy 5. Memory change - donepezil (Aricept) 5 MG tablet; Take 1 tablet by mouth Every Night. Dispense: 90 tablet; Refill:1 6. Anxiety and depression - desvenlafaxine (PRISTIQ) 50 MG 24 hr tablet; Take 1 tablet by mouth Daily. Dispense: 90 tablet; Refill: 1 Other orders - Discontinue: NIFEdipine XL (PROCARDIA XL) 90 MG 24 hr tablet; Take 1 tablet by mouth Daily. Dispense: 90 tablet; Refill: 1 Continue lantus but will increase metformin from 500 to 1000 to help with constipation. May need less lantus with this change. Continue ozempic, she does not want to stop this. I did advise her it could make gastroparesis and constipation worse. She ants to stay on this No change in losartan 100 but will increase nifedipine from 60 to 90 for better BP control Refilled zetia as she is statin intolerant and repatha was not covered. Ok aricept for memory, low dose sent in. 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, with long-term current use of insulin Primary hypertension HEMOGLOBIN A1C Routine 05/30/2023 10:50 AM EST 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, with long-term current use of insulin LIPID PANEL Routine 05/30/2023 10:50 AM EST Mixed hyperlipidemia COMPREHENSIVE METABOLIC PANEL Routine 05/30/2023 10:50 AM EST 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, with long-term current use of insulin Primary hypertension Mixed hyperlipidemia documented in this encounter Results * (ABNORMAL) Hemoglobin A1c (05/30/2023 10:50 AM EST) Hemoglobin A1C 7.00(H) 4.80 - 5.60 % [facility] Comment: Hemoglobin A1C Ranges: Increased Risk for Diabetes ??5.7% to 6.4% Diabetes ? >= 6.5% Diabetic Goal ?< 7.0% Blood 05/30/2023 10:5 0 AM EST 05/30/2023 [facility]ative [facility] - 05/31/2023 3:08 AM EST Performed at: ??01 - [place] [address] [place], [place] ??[id number] Dress Marker: Lane Haile MD, Phone: ??[phone] Patient Fasting: ??Y us Alex Davis MD LAB BLOOD ORDERABLES Final Resu lt [facility] [address] [place] [address], [facility] [address] [place] [address], * (ABNORMAL) Lipid Panel (05/30/2023 10:50 AM EST) Total Cholesterol 206(H) 0 - 200 mg/dL [facility] Comment: Cholesterol Reference Ranges (U.S. Department of Health and Human Services ATP III Classifications) Desirable ?<200 mg/dL Borderline High ?200-239 mg/dL High Risk ?>240 mg/dL Triglyceride Reference Ranges (U.S. Department of Health and Human Services ATP III Classifications) Normal ? <150 mg/dL Borderline High ??150-199 mg/dL High ? 200-499 mg/dL Very High ?>500 mg/dL HDL Reference Ranges (U.S. Department of Health and Human Services ATP III Classifications) Low ? <40 mg/dl (major risk factor for CHD) High ?>60 mg/dl ('negative' risk factor for CHD) LDL Reference Ranges (U.S. Department of Health and Human Services ATP III Classifications) Optimal ?<100 mg/dL Near Optimal ? 100-129 mg/dL Borderline High ??130-159 mg/dL High ? 160-189 mg/dL Very High ?>189 mg/dL Triglycerides 174(H) 0 - 150 mg/dL [facility] HDL Cholesterol 48 40 - 60 mg/dL [facility] VLDL Cholesterol Bill 31 5 - 40 mg/dL [facility] LDL Chol Calc (NIH) 127(H) 0 - 100 mg/dL [facility] Blood 05/30/2023 10:5 0 AM EST 05/30/2023 Narrative [facility] ([facility]) - 05/31/2023 3:08 AM EST Performed at: ??[address] - [address] ??[id number] Dress Marker: Lane Haile MD, Phone: ??[phone] Patient Fasting: ??Y us Alex Davis MD LAB BLOOD ORDERABLES Final Resu lt [facility] ([facility]BUL[facility]ORY) [address] [place] [address], [facility] [address] [place] [address], [place] [phone] * (ABNORMAL) Comprehensive Metabolic Panel (05/30/2023 10:50 AM EST) Pathologist [facility] Glucose 94 65 - 99 mg/dL [facility] BUN 14 8 - 23 mg/dL [facility] Creatinine 0.59 0.57 - 1.00 mg/dL [facility] EGFR Result 99.5 >60.0 mL/min/1.7 3 [facility] Comment: GFR Normal >60 Chronic Kidney Disease <60 Kidney Failure <15 BUN/Creatinine Ratio 23.7 7.0 - 25.0 [facility] Sodium 140 136 - 145 mmol/L [facility] Potassium 4.6 3.5 - 5.2 mmol/L [facility] Chloride 102 98 - 107 mmol/L [facility] Total CO2 28.7 22.0 - 29.0 mmol/L [facility] Calcium 9.6 8.6 - 10.5 mg/dL [facility] Total Protein 6.9 6.0 - 8.5 g/dL [facility] Albumin 4.3 3.5 - 5.2 g/dL [facility] Globulin 2.6 gm/dL [facility] A/G Ratio 1.7 g/dL [facility] Total Bilirubin 0.4 0.0 - 1.2 mg/dL [facility] Alkaline Phosphatase 163(H) 39 - 117 U/L [facility] AST (SGOT) 31 1 - 32 U/L [facility] ALT (SGPT) 40(H) 1 - 33 U/L [facility] Blood 05/30/2023 10:5 0 AM EST 05/30/2023 Narrative [facility] (AMBULATORY) - 05/31/2023 3:08 AM EST Performed at: ??[address] ??[id number] Dress Marker: Lane Haile MD, Phone: ??[phone] Patient Fasting: ??Y us Alex Davis MD LAB BLOOD ORDERABLES Final Resu lt [facility] (AMBULATORY) [address] [place] [address], [facility] [address] [place] [address], * CBC & Differential (05/30/2023 10:50 AM EST) WBC 6.58 3.40 - 10.80 10*3/mm3 [facility] RBC 5.09 3.77 - 5.28 10*6/mm3 [facility] Hemoglobin 14.6 12.0 - 15.9 g/dL [facility] Hematocrit 44.1 34.0 - 46.6 % [facility] MCV 86.6 79.0 - 97.0 fL [facility] MCH 28.7 26.6 - 33.0 pg [facility] MCHC 33.1 31.5 - 35.7 g/dL [facility] RDW 12.4 12.3 - 15.4 % [facility] Platelets 307 140 - 450 10*3/mm3 [facility] Neutrophil Rel % 64.0 42.7 - 76.0 % [facility] Lymphocyte Rel % 26.4 19.6 - 45.3 % [facility] Monocyte Rel % 6.5 5.0 - 12.0 % [facility] Eosinophil Rel % 1.7 0.3 - 6.2 % [facility] Basophil Rel % 0.9 0.0 - 1.5 % [facility] Neutrophils Absolute 4.21 1.70 - 7.00 10*3/mm3 [facility] Lymphocytes Absolute 1.74 0.70 - 3.10 10*3/mm3 [facility] Monocytes Absolute 0.43 0.10 - 0.90 10*3/mm3 [facility] Eosinophils Absolute 0.11 0.00 - 0.40 10*3/mm3 [facility] Basophils Absolute 0.06 0.00 - 0.20 10*3/mm3 [facility] Immature Granulocyte Rel % 0.5 0.0 - 0.5 % [facility] Immature Grans Absolute 0.03 0.00 - 0.05 10*3/mm3 [facility] nRBC 0.0 0.0 - 0.2 /100 WBC [facility] Blood 05/30/2023 10:5 0 AM EST 05/30/2023 Narrative [facility] ([facility]) - 05/31/2023 3:08 AM EST Performed at: ??01 - [address] ??[id number] Dress Marker: Lane Haile MD, Phone: ??[phone] Patient Fasting: ??Y us Alex Davis MD LAB BLOOD ORDERABLES Final Resu lt [facility] ([facility]ORY) [address] [place] [address], [facility] [address] [place] [address], [place] [phone] documented in this encounter Visit Diagnoses Diagnosis 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, with long-term current use of insulin- Primary Primary hypertension Unspecified essential hypertension Mixed hyperlipidemia Colon cancer screening Special screening for malignant neoplasms, colon Memory change Memory loss Anxiety and depression Statin intolerance documented in this encounter Additional Health Concerns Assessment Noted Time PHQ-2 Depression Total Score: 4 02/28/20 23 11:21 AM EST documented as of this encounter Care Teams Electric Sign Wirer Relationship Specialty Start Date End Date Alex Davis MD [address] [place] [address] PCP - General Family Medicine 09/05/21 documented as of this encounter
--- OUTSIDE RECORDS SUMMARY | 2024-02-20 09:07 | XMS_ITS | Encounter Summary ---
Author Organization [facility] Address [address] [place] [address] Care Team Providers Care Back Shoe Cutter Name Role Phone Alex Davis MD Primary Care Provider [phone] Reason for Referral * Diagnostic Imaging (Routine) - Closed Specialty Diagnoses / Procedures Referred By Yodit salinas Referred To Contact Radiology Diagnoses Pain of left heel Procedures XR Foot 3+ View Left Elvira Moeller APRN [address] [place] [address] Phone: tel: fax: Referral ID Status Reason Start Date Expiration Date Visits Re quested Visits Authorized [id number] Closed 02/07/2023 02/07/2024 1 1 Reason for Visit * Diagnostic Imaging (Routine) - Closed Specialty Diagnoses / Procedures Referred By Yodit salinas Referred To Contact Radiology Diagnoses Pain of left heel Procedures XR Foot 3+ View Left Elvira Moeller, VASILE [address] [place] [address] Phone: tel: fax: Referral ID Status Reason Start Date Expiration Date Visits Re quested Visits Authorized [id number] Closed 02/07/2023 02/07/2024 1 1 Encounter Details Date Type Department Care Team (Latest Contact Info) Description 02/07/2023 3:48 PM EST - 02/07/2023 11:59 PM EST Hospital Encounter [facility] XRAY AT [address] [place] [address] Elvira Moeller, BULLDOGGER [address] [place] [address] Pain of left heel Discharge Disposition: Home or Self Care Social History Tobacco Use Types Packs/Day Years Used Date Smoking Tobacco: Never Smokeless Tobacco: Never Alcohol Use Standard Drinks/Week Comments No 0 (1 standard drink = 0.6 oz pur e alcohol) PHQ-2 Answer Date Recorded Retired PHQ-9: Brief Depression Severity Measure Score 0 08/25/2022 Abuse Screen Answer Date Recorded Unsafe at [...] file Preferred Language Not on file 01/08/2023 Comments No Sex and Gender Information Value Date Recorded Sex Assigned at Not on file Legal Sex Female 10:25 AM EDT Gender Identity Not on file Sexual Orientation Not on file documented as of this encounter Medications at Time of Discharge bethanechol (URECHOLINE) 50 MG tablet Take 1 tablet by mouth 2 (Two) Times a Day. 06/27/2019 docusate sodium (COLACE) 100 MG capsule Take 1 capsule by mouth 2 (Two) Times a Day. furosemide (LASIX) 20 MG tablet Take 1 tablet by mouth As Needed. Insulin Lispro, 1 Unit Dial, (HumaLOG KwikPen) [...] BY MOUTH DAILY 90 tablet 3 02/05/2023 metoclopramide (REGLAN) 5 MG tablet Take 1 tablet by mouth 3 (Three) Times a Day. 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 9 each 5 05/22/2022 05/30/19 24 Continuous Blood Gluc Transmit (Dexcom G5 Mobile Transmitter) miscIndications:Con trolled 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, with long-term current use of insulin 1 each Daily. 1 each 3 06/12/2022 04/12/19 24 ezetimibe (ZETIA) 10 MG tablet Take 1 tablet by mouth Daily. 90 tablet 3 01/25/2023 02/28/20 23 Insulin Glargine (LANTUS SOLOSTAR) 100 UNIT/ML injection penIndications:Cont rolled 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, with long-term current use of insulin Inject 60 Units under the skin into the appropriate area as directed Daily. Disp quant suff 30 mL 5 11/27/2022 05/30/19 24 losartan (COZAAR) 100 MG tabletIndications:E ssential hypertension Take 1 tablet by mouth Daily. 90 tablet 1 11/27/2022 05/03/19 24 metFORMIN ER (GLUCOPHAGE-XR) 500 MG 24 hr tabletIndications:C ontrolled 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, with long-term current use of insulin Take 2 tablets by mouth Daily With Breakfast. 180 tablet 3 09/18/2022 05/30/19 24 NIFEdipine CC (ADALAT CC) 60 MG 24 hr tablet Take 1 tablet by mouth Daily. 90 tablet 3 09/18/2022 05/30/19 24 omeprazole (priLOSEC) 40 MG capsule TAKE 1 CAPSULE BY MOUTH DAILY 90 capsule 3 10/09/2022 10/01/19 24 Plecanatide (Trulance) 3 MG tabletIndications:C hronic idiopathic constipation Take 1 tablet by mouth Daily. 90 tablet 1 12/22/2022 02/28/20 23 rOPINIRole (REQUIP) 1 MG tabletIndications:R LS (restless legs syndrome) Take 1 tablet by mouth Every Night. Take 1 hour before bedtime. 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 9 mL 1 12/22/2022 05/15/19 24 topiramate (TOPAMAX) 50 MG tabletIndications:C hronic migraine without aura without status migrainosus, not intractable Take 1 tablet by mouth Daily As Needed (migraine). 90 tablet 1 11/27/2022 04/12/19 24 traMADol (ULTRAM) 50 MG tabletIndications:P ostlaminectomy syndrome of lumbar region,Herniated lumbar intervertebral disc Take 1 tablet by mouth Every 8 (Eight) Hours As Needed for Moderate Pain. 90 tablet 11/27/2022 02/20/20 23 traZODone (DESYREL) 50 MG tabletIndications:P rimary insomnia TAKE 1 TO 2 TABLETS BY MOUTH AT BEDTIME NEEDED 180 tablet 1 11/27/2022 04/12/19 24 documented as of this encounter Plan of Treatment Upcoming Encounters Date Type Department Care Team (Late st Contact Info) Description 03/13/2024 2:45 PM EST Office Visit [facility] [address] [facility] [address] [place] [address] Pj Ace MD [address] [facility] [address] [place] [address] documented as of this encounter Procedures Procedure Name Priority Date/Time Associated Diagnosis Comments XR FOOT 3+ VW LEFT Routine 02/07/2023 3: 55 PM EST Pain of left heel documented in this encounter Results * XR Foot 3+ View Left (02/07/2023 3:55 PM EST) Anatomical Region Laterality Modality Lower Extremities, Foot Left [facility] 02/07/2023 5:04 PM EST Impressions 02/07/2023 5:05 PM EST Impression: No acute osseous findings. Prominent posterior and plantar calcaneal enthesophytes and correlate for plantar fasciitis and Achilles tendinopathy. Bony demineralization. Electronically Signed: Eliseo Duval MD 02/07/2023 5:05 PM EST Workstation ID: [id number] 02/07/2023 5:05 PM EST XR FOOT 3+ VW LEFT Date of Exam: 02/07/2023 3:46 PM EST Indication: left heel pain Comparison: Left foot radiographs 12/13/2020 Findings: The bones are demineralized. No definite soft tissue swelling. Bony erosion. No periostitis. No acute fracture or traumatic malalignment. Mild degenerative change of the first metatarsophalangeal joint. The Lisfranc joint is congruent though suboptimally assessed on nonweightbearing radiographs. Prominent posterior and plantar calcaneal enthesophytes are redemonstrated. Procedure Note Eliseo Duval MD - 02/07/2023 XR FOOT 3+ VW LEFT Date of Exam: 02/07/2023 3:46 PM EST Indication: left heel pain Comparison: Left foot radiographs 12/13/2020 Findings: The bones are demineralized. No definite soft tissue swelling. Bonyerosion. No periostitis. No acute fracture or traumatic malalignment. Milddegenerative change of the first metatarsophalangeal joint. The Lisfrancjoint is congruent though suboptimally assessed on nonweightbearing radiographs. Prominent posterior and plantarcalcaneal enthesophytes are redemonstrated. IMPRESSION: Impression: No acute osseous findings. Prominent posterior and plantar calcaneal enthesophytes and correlate forplantar fasciitis and Achilles tendinopathy. Bony demineralization. Electronically Signed: Eliseo Duval MD 02/07/2023 5:05 PM EST Workstation ID: [id number] Elvira Moeller BULLDOGGER IMG DIAGNOSTIC IMAGING ORDER JERRY Final Result documented in this encounter Visit Diagnoses Diagnosis Pain of left heel documented in this encounter Care Teams Back Shoe Cutter Relationship Specialty Start Date End Date Alex Davis MD [address] [place] [address] PCP - General Family Medicine 09/05/21 documented as of this encounter
--- OUTSIDE RECORDS SUMMARY | 2024-02-20 09:07 | XMS_ITS | Encounter Summary ---
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, with long-term current use of insulin; Chronic idiopathic constipation Social History Tobacco Use Types Packs/Day Years Used Date Smoking Tobacco: Never Smokeless Tobacco: Never Alcohol Use Standard Drinks/Week Comments No 0 (1 standard drink = 0.6 oz pur e alcohol) PHQ-2 Answer Date Recorded Retired PHQ-9: Brief Depression Severity Measure Score 0 08/25/2022 Comments No Sex and Gender Information Value Date Recorded Sex Assigned at Not on file Legal Sex Female 10:25 AM EDT Gender Identity Not on file Sexual Orientation Not on file documented as of this encounter Last Filed Vital Signs Vital Sign Reading Time Taken Comments Blood Pressure 142/70 12/22/2022 3:38 PM EDT Pulse 95 12/22/2022 3:38 PM EDT Temperature 36.6 ??C (97.8 ??F) 12/22/2022 3:38 PM ED T Respiratory Rate 18 12/22/2022 3:38 PM EDT Oxygen Saturation 92% 12/22/2022 3:38 PM EDT Inhaled Oxygen Concentration - - Weight 83.7 kg (184 lb 9.6 oz) 12/22/2022 3:38 P M EDT Height 157.5 cm (5' 2 ) 12/22/2022 3:38 PM EDT Body Mass Index 33.76 12/22/2022 3:38 PM EDT documented in this encounter Progress Notes * Alex Davis MD - 12/22/2022 3:45 PM EDTAssociated Order(s): ECG 12 Lead Post-Procedure Diagnose(s): Gastroparesis Subjective Gertrudis Gonzalez is a 66 y.o. female. History of Present Illness Pt was told by her GI doctor that an EKG was needed for the medicine, domperidone Pt is not the best historian in regards to information But GI doc wants an EKG Pt has not lost more weight with the ozempic since last visit DM control had improved and home numbers are better Would like to increase dose of this medicine She also notes that the trulance is working well for her constipaiton Failed linzess in the past Review of Systems Constitutional: Negative. Respiratory: Negative. Psychiatric/Behavioral: Negative. Objective Physical Exam Vitals [...] Content: Thought content normal. Judgment: Judgment normal. ECG 12 Lead Date/Time: 12/22/2022 4:06 PM Performed by: Alex Davis MD Authorized by: Alex Davis MD Comparison: not compared with previous ECG Previous ECG: no previous ECG available Rhythm: sinus rhythm Conduction: conduction normal ST Segments: ST segments normal T inversion: V1 and V2 Clinical impression: normal ECG Assessment & Plan Diagnoses and all orders for this visit: 1. Gastroparesis (Primary) 2. 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 Dispense: 9 mL; Refill: 1 3. Chronic idiopathic constipation - Plecanatide (Trulance) 3 MG tablet; Take 1 tablet by mouth Daily. Dispense: 90 tablet; Refill: 1 Other orders - ECG 12 Lead Will await name for GI doc to send EKG to. It is normal Ok for ozempic increase for improved DM control. 1 mg dose sent in Ok trulance since the linzess failed. Script sent in documented in this encounter Plan of Treatment Upcoming Encounters Date Type Department Care Team (Late st Contact Info) Description 03/13/2024 2:45 PM EST Office Visit [facility] CARDIOLOGY [address] [facility] [place] [address] [address] Pj Ace MD [address] [facility] [place] [address] documented as of this encounter Procedures Procedure Name Priority Date/Time Associated Diagnosis Comments ECG 12-LEAD Routine 12/22/2022 4:06 PM EDT Gastroparesis documented in this encounter Results * ECG 12-LEAD (12/22/2022 4:06 PM EDT) Narrative Alex Davis MD - 12/22/2022 4:06 PM EDT Alex Davis MD ? 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
--- OUTSIDE RECORDS SUMMARY | 2024-02-20 09:07 | XMS_ITS | Encounter Summary ---
[facility] Address [address] [place] [address] Care Team Providers Care Computer Systems Design Analyst Name Role Phone Alex Davis MD Primary Care Provider [phone] Reason for Visit * Reason Onset Date Comments New Med Request 12/21/2022 Encounter Details Date Type Department Care Team (Late st Contact Info) Description 12/21/[address] [facility] FAM[facility] MEDICINE [address] [place] [address] Alex Davis MD [address] [place] [address] New Med Request Social History Tobacco Use Types Packs/Day Years [...] encounter Miscellaneous Notes * Telephone Encounter - Ruby Neumann RegSched Rep - 12/21/2022 11:25 AM EDT Images from the original note were not included. 12:46 PM Note Caller: Gertrudis Gonzalez Relationship: Self Best call back number: [phone] What medication are you requesting: TRUELANCE If a prescription is needed, what is your preferred pharmacy and phone number: [facility]) - [address] [phone] [facility] [phone] Additional notes: PATIENT STATES MEDICATION SAMPLES WORKED WELL. WOULD LIKE 90 DAY SUPPLY OF MEDICATION. DOES NOT WANT LINZESS documented in this encounter Plan of Treatment Upcoming Encounters Date Type Department Care Team (Late st Contact Info) Description 03/13/2024 2:45 PM EST Office Visit [facility] CARDIOLOGY [address] [facility] [place] [place] [address] Pj Ace MD [address] [facility] [address] [address] documented as of this encounter Visit Diagnoses Not on filedocumented in this encounter Care Teams Computer Systems Design Analyst Relationship Specialty Start Date End Date Alex Davis MD 210 [place] [address] PCP - General Family Medicine 09/05/21 documented as of this encounter
--- OUTSIDE RECORDS SUMMARY | 2024-02-20 09:07 | XMS_ITS | Encounter Summary ---
[facility] Address [address] [place] [address] Care Team Providers Care Substance Abuse Clinician Name Role Phone Alex Davis MD Primary Care Provider [phone] Reason for Visit * Reason Comments Med Refill Encounter Details Date Type Department Care Team (Late st Contact Info) Description 04/13/2023 Refill [facility] [address] [facility] [place] [address] Alex Davis MD [address] [facility] [address] Anxiety and depression Social History Tobacco Use Types Packs/Day Years [...] Visit [facility]ARDIOLOG[facility] 210 [place] [address] Pj Ace MD [address] [facility] [address] [address] documented as of this encounter Visit Diagnoses Diagnosis Anxiety and depression documented in this encounter Additional Health Concerns Assessment Noted Time PHQ-2 Depression Total Score: 4 02/28/20 23 11:21 AM EST documented as of this encounter Care Teams Substance Abuse Clinician Relationship Specialty Start Date End Date Alex Davis MD [address] [place] [address] PCP - General Family Medicine 09/05/21 documented as of this encounter
--- OUTSIDE RECORDS SUMMARY | 2024-02-20 09:07 | XMS_ITS | Encounter Summary ---
[facility] [address] [place] [address] Care Team Providers Care Animal Ecologist Name Role Phone Alex Shea MD Primary Care Provider [phone] Reason for Visit * Reason Onset Date Comments CALL BACK REQUEST 12/21/2022 Encounter Details Date Type Department Care Team (Late st Contact Info) Description 12/21/2022 Telephone [facility] FAMILY MEDICINE [address] [place] [address] Alex Shea MD [address] [place] [address] CALL BACK REQUEST Social History Tobacco Use Types Packs/Day Years [...] encounter Miscellaneous Notes * Telephone Encounter - Nancy Das LPN - 12/21/2022 12:36 PM EDT Appt made * Telephone Encounter - Kaity Jacques RegSched Rep - 12/21/2022 11:32 AM EDT Hub staff attempted to follow warm transfer process and was unsuccessful Caller: Gertrudis Gonzalez Relationship to patient: Self Best call back number: [phone] Patient is needing: PATIENT CALLED TO CHECK THE STATUS OF AN APPOINTMENT FOR AN EKG. PATIENT STATEDTHAT DR SHEA WAS SUPPOSE TO HAVE THIS SCHEDULED. documented in this encounter Plan of Treatment Upcoming Encounters Date Type Department Care Team (Late st Contact Info) Description 03/13/2024 2:45 PM EST Office Visit [facility] CARDIOLOG[facility] [address] [place] [address] Pj Ace MD [address] [facility] [address] [address] documented as of this encounter Visit Diagnoses Not on filedocumented in this encounter Care Teams Animal Ecologist Relationship Specialty Start Date End Date Alex Shea MD 210 [place] [address] PCP - General Family Medicine 09/05/21 documented as of this encounter
--- OUTSIDE RECORDS SUMMARY | 2024-02-20 09:07 | XMS_ITS | Encounter Summary ---
[facility] Address [address] [place] [address] Care Team Providers Care Engineer Assistant Name Role Phone Alex Davis MD Primary Care Provider [phone] Reason for Visit * Reason Onset Date Comments Diane VILLAGOMEZ 02/07/2023 Encounter Details Date Type Department Care Team (Late st Contact Info) Description 02/07/2023 Telephone [facility] FAM[facility] MEDICINE [address] [place] [address] Alex Davis MD [address] [place] [address] Diane VILLAGOMEZ Social History Tobacco Use Types Packs/Day Years [...] Recorded Current Living Arrangements Not on file 1012/2022 Potentially Unsafe Housing Conditions Not on ciro [...] encounter Miscellaneous Notes * Telephone Encounter - Amparo Arce MA - 02/07/2023 3:41 PM EST Completed [place] via ph w/ [facility] [phone]. Trjosenccris approved. Auth#: [id number].Pt informed. documented in this encounter Plan of Treatment Upcoming Encounters Date Type Department Care Team (Late st Contact Info) Description 03/13/2024 2:45 PM EST Office Visit [facility] CARDIOLOGY [address] [place] [address] Pj Ace MD [address] [facility] [address] [address] documented as of this encounter Visit Diagnoses Not on filedocumented in this encounter Care Teams Engineer Assistant Relationship Specialty Start Date End Date Alex Davis MD [address] [place] [address] PCP - General Family Medicine 09/05/21 documented as of this encounter
--- OUTSIDE RECORDS SUMMARY | 2024-02-20 09:07 | XMS_ITS | Encounter Summary ---
[facility] Address [address] [place] [address] Care Team Providers Care Pin Attacher Name Role Phone Alex Shea MD Primary Care Provider [phone] Reason for Visit * Reason Onset Date Comments MEDICATION QUESTION 03/05/2023 Encounter Details Date Type Department Care Team (Late st Contact Info) Description 03/05/2023 Telephone [facility] FAMILY MEDICINE [address] [place] [address] Alex Shea MD [address] [place] [address] MEDICATION QUESTION Social History Tobacco Use Types Packs/Day Years [...] encounter Miscellaneous Notes * Telephone Encounter - Mirna Ocasio RegSched Rep - 03/05/2023 3:54 PM EST Informed patient * Telephone Encounter - Nancy Das LPN - 03/05/2023 3:40 PM EST Left detailed vm for pt sent in 02/27 * Telephone Encounter - Nanette Sanchez RegSched Rep - 03/05/2023 3:26 PM EST Caller: Gertrudis Gonzalez Relationship: Self Best call back number: [phone] Which medication are you concerned about: TRULANCE Who prescribed you this medication: DOCTOR SHEA What are your concerns: THE PATIENT STATES THAT THE DOCTOR WAS GOING TO CHANGE HER MEDICATION FORM LINZESS TO TRULANCE THE PHARMACY NEEDS A PRESCRIPTION FOR THE TRULANCE THE PATIENT STATES THAT SHE HAS RECEIVED MORE LINZESS AND NO TRULANCE documented in this encounter Plan of Treatment Upcoming Encounters Date Type Department Care Team (Late st Contact Info) Description 03/13/2024 2:45 PM EST Office Visit [facility] CARDIOLOG[facility] [address] [place] [address] Pj Ace MD [address] [facility] [address] [address] documented as of this encounter Visit Diagnoses Not on filedocumented in this encounter Additional Health Concerns Assessment Noted Time PHQ-2 Depression Total Score: 4 02/28/20 23 11:21 AM EST documented as of this encounter Care Teams Pin Attacher Relationship Specialty Start Date End Date Alex Shea MD [address] [place] [address] PCP - General Family Medicine 09/05/21 documented as of this encounter
--- OUTSIDE RECORDS SUMMARY | 2024-02-20 09:07 | XMS_ITS | Encounter Summary ---
Author Organization [facility] Address [address] [place] [address] Care Team Providers Care Seasonal Package Handler Name Role Phone Alex Davis MD Primary Care Provider [phone] Reason for Visit * Reason Comments Med Refill Encounter Details Date Type Department Care Team (Late st Contact Info) Description 02/02/2023 Refill [facility] FAMILY MEDICINE [address] [place] [address] Alex Davis MD [address] [place] [address] Postlaminectomy syndrome of lumbar region; [...] Description 03/13/2024 2:45 PM EST Office Visit [facility] CARDIOLOGY 210 [place] [address] Pj Ace MD [address] [facility] [address] [address] documented as of this encounter Visit Diagnoses Diagnosis Postlaminectomy syndrome of lumbar region Postlaminectomy syndrome, lumbar region Herniated lumbar intervertebral disc Displacement of lumbar intervertebral disc without myelopathy documented in this encounter Care Teams Seasonal Package Handler Relationship Specialty Start Date End Date Alex Davis MD 210 [place] [address] PCP - General Family Medicine 09/05/21 documented as of this encounter
--- OUTSIDE RECORDS SUMMARY | 2024-02-20 09:07 | XMS_ITS | Encounter Summary ---
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
--- OUTSIDE RECORDS SUMMARY | 2024-02-20 09:07 | XMS_ITS | Encounter Summary ---
[facility] Address [address] [place] [address] Care Team Providers Care Gage Designer Name Role Phone Alex Shea MD Primary Care Provider [phone] Reason for Visit * Reason Onset Date Comments ORDERS 12/08/2022 Encounter Details Date Type Department Care Team (Late st Contact Info) Description 12/08/2022 Telephone [facility] FAMILY MEDICINE [address] [place] [address] Alex Shea MD [address] [place] [address] ORDERS Social History Tobacco Use Types Packs/Day Years [...] Telephone Encounter - Nancy Das LPN - 12/08/2022 2:44 PM EDT Pt will call and schedule an appt * Telephone Encounter - Edilia Durán RegSched Rep - 12/08/2022 12:02 PM EDT Caller: Lisa Gertrudis Ofelia Relationship: Self Best call back number: [phone] What orders are you requesting (i.e. lab or imaging): EKG In what timeframe would the patient need to come in: HAYES Where will you receive your lab/imaging services: [facility] Additional notes: PATIENT STATES HER DOCTOR IN [place] IS REQUIRING SHE GET AN EKG BEFORE SHE CAN GIVE HER MEDICATION. PATIENT IS REQUESTING [facility] THE ORDER IN FOR HER SO SHE CAN HAVE THISTESTING COMPLETED. PLEASE CALL PATIENT BACK, IF NO ANSWER LEAVE A DETAILED MESSAGE. documented in this encounter Plan of Treatment Upcoming Encounters Date Type Department Care Team (Late st Contact Info) Description 03/13/2024 2:45 PM EST Office Visit [facility] CARDIOLOGY [address] [facility] [place] [address] Pj Ace MD [address] [facility] [address] [address] documented as of this encounter Visit Diagnoses Not on filedocumented in this encounter Care Teams Gage Designer Relationship Specialty Start Date End Date Alex Shea MD 210 [place] [address] PCP - General Family Medicine 09/05/21 documented as of this encounter
--- OUTSIDE RECORDS SUMMARY | 2024-02-20 09:07 | XMS_ITS | Encounter Summary ---
[facility] [address] [place] [id number] Care Team Providers Care Kettle Cleaner Name Role Phone Alex Davis MD Primary Care Provider [phone] Reason for Referral * Diagnostic Imaging (Routine) - Closed Specialty Diagnoses / Procedures Referred By Contac t Referred To Contact Radiology Diagnoses Pain of left heel Procedures XR Foot 3+ View Left Elvira Moeller APRN [address] [place] [address] Phone: tel: fax: Referral ID Status Reason Start Date Expiration Date Visits Re quested Visits Authorized [id number] Closed 02/07/2023 02/07/2024 1 1 Reason for Visit * Reason Comments Black spot on L heel Friend noticed it f ew days ago. Pt doesn't have much feeling in her ft. Encounter Details Date Type Department Care Team (Late st Contact Info) Description 02/07/2023 3:[address] [facility] FAMILY MEDICINE [address] [place] [phone] Elvira Moeller APRN [address] [place] [address] Pain of left heel (Primary Dx); Type 2 diabetes mellitus with diabetic neuropathy, with long-term current use of insulin Social [...] Sign Reading Time Taken Comments Blood Pressure 132/72 02/07/2023 2:54 PM EST Pulse 86 02/07/2023 2:54 PM EST Temperature 36.5 ??C (97.7 ??F) 02/07/2023 2:54 PM ES T Respiratory Rate 16 02/07/2023 2:54 PM EST Oxygen Saturation 94% 02/07/2023 2:54 PM EST Inhaled Oxygen Concentration - - Weight 81.2 kg (179 lb) 02/07/2023 2:54 PM EST Height 158.8 cm (5' 2.5 ) 02/07/2023 2:54 PM EST Body Mass Index 32.22 02/07/2023 2:54 PM EST documented in this encounter Progress Notes * Elvira Moeller, PROPERTY COORDINATOR - 02/07/2023 3:00 PM EST Images from the original note were not included. Date: 02/07/2023 Patient Name: Gertrudis Gonzalez : 1955 Chief Complaint: Chief Complaint Patient presents with Black spot on L heel Friend noticed it few days ago. Pt doesn't have much feeling in her ft. History of Present Illness: Gertrudis Gonzalez is a 67 y.o. female who is here today for Spot on left heel that was noticed about 1 week ago. Patient does experience neuropathy of bilateral feet due to diabetes. She does follow podiatry but has not seen podiatry recently. She is also having left heel pain that can be sharp and stabbing. She denies any drainage from area. Review of Systems: Review of Systems Constitutional: Negative for activity change and fatigue. Respiratory: Negative for shortness of breath. Cardiovascular: Negative for chest pain. Gastrointestinal: Negative for abdominal pain, constipation and diarrhea. Genitourinary: Negative for difficulty urinating and urinary incontinence. Musculoskeletal: Positive for arthralgias (LEFT HEEL PAIN). Negative for back pain and gait problem. 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 Damien Berg LUMBAR DISCECTOMY 06/17/2012 Re-do Lt- L4/[address] Damien Berg OOPHORECTOMY OTHER SURGICAL HISTORY Spinal Sterotaxis Stimulation Of Cord SPINAL CORD STIMULATOR IMPLANT placement 2013, replacement 2014. Dr. Damien Berg TUBAL ABDOMINAL LIGATION Family History: Family History Problem Relation Age of Onset Kidney disease Mother Hypertension Mother Peripheral vascular disease Mother Ulcers Mother Kidney failure Mother Lung disease Father Kidney failure Maternal Grandmother Diabetes Other type 2 Colon cancer Neg Hx Breast cancer Neg Hx Ovarian cancer Neg Hx Social History: Social History Socioeconomic History Marital status: Tobacco Use Smoking status: Never Smokeless tobacco: Never Vaping Use Vaping Use: Never used Substance and Sexual Activity Alcohol use: No Drug use: No Sexual activity: Yes Partners: Male Comment: Medications: Current Outpatient Medications: bethanechol (URECHOLINE) 50 MG tablet, Take 1 tablet by mouth 2 (Two) Times a Day., Disp: , Rfl: Continuous Blood Gluc Sensor (Dexcom G6 Sensor), Every 10 (Ten) Days., Disp: 9 each, Rfl: 5 Continuous Blood Gluc Transmit (Dexcom G5 Mobile Transmitter) misc, 1 each Daily., Disp: 1 each, Rfl: 3 docusate sodium (COLACE) 100 MG capsule, Take 1 capsule by mouth 2 (Two) Times a Day., Disp: , Rfl: ezetimibe (ZETIA) 10 MG tablet, Take 1 tablet by mouth Daily., Disp: 90 tablet, Rfl: 3 furosemide (LASIX) 20 MG tablet, Take 1 tablet by mouth As Needed., Disp: , Rfl: Insulin Glargine (LANTUS SOLOSTAR) 100 UNIT/ML injection pen, Inject 60 Units under the skin into the appropriate area as directed Daily. Disp quant suff (Patient taking differently: Inject 68 Units under the skin into the appropriate area as directed Daily. Disp quant suff), Disp: 30 mL, Rfl: 5 Insulin Lispro, 1 Unit Dial, (HumaLOG KwikPen) 100 UNIT/ML solution pen- injector, Take 16 units before meals, correction 2:50 >150, MDD 60U (Patient taking differently: As Needed. Take 16 units before meals, correction 2:50 >150, MDD 60U), Disp: 54 mL, Rfl: 1 Insulin Pen Needle 32G X 4 MM misc, Use daily with insulin up to 6 times per day, Disp: 600 each, Rfl: 3 losartan (COZAAR) 100 MG tablet, Take 1 tablet by mouth Daily., Disp: 90 tablet, Rfl: 1 meloxicam (MOBIC) 7.5 MG tablet, TAKE 1 TABLET BY MOUTH DAILY, Disp: 90 tablet, Rfl: 3 metFORMIN ER (GLUCOPHAGE-XR) 500 MG 24 hr tablet, Take 2 tablets by mouth Daily With Breakfast. (Patient taking differently: Take 1 tablet by mouth Daily With Breakfast.), Disp: 180 tablet, Rfl: 3 metoclopramide (REGLAN) 5 MG tablet, Take 1 tablet by mouth 3 (Three) Times a Day., Disp: , Rfl: NIFEdipine CC (ADALAT CC) 60 MG 24 hr tablet, Take 1 tablet by mouth Daily., Disp: 90 tablet, Rfl: 3 omeprazole (priLOSEC) 40 MG capsule, TAKE 1 CAPSULE BY MOUTH DAILY, Disp: 90 capsule, Rfl: 3 rOPINIRole (REQUIP) 1 MG tablet, Take 1 tablet by mouth Every Night. Take 1 hour before bedtime., Disp: 90 tablet, Rfl: 0 Semaglutide, 1 MG/DOSE, (Ozempic, 1 MG/DOSE,) 4 MG/3ML solution pen-injector, Inject 1 mg under theskin into the appropriate area as directed 1 (One) Time Per Week., Disp: 9 mL, Rfl: 1 topiramate (TOPAMAX) 50 MG tablet, Take 1 tablet by mouth Daily As Needed (migraine)., Disp: 90 tablet, Rfl: 1 traMADol (ULTRAM) 50 MG tablet, Take 1 tablet by mouth Every 8 (Eight) Hours As Needed for ModeratePain. (Patient taking differently: Take 1 tablet by mouth Every 8 (Eight) Hours.), Disp: 90 tablet,Rfl: 0 traZODone (DESYREL) 50 MG tablet, TAKE 1 TO 2 TABLETS BY MOUTH AT BEDTIME NEEDED (Patient takingdifferently: Take 1 tablet by mouth Every Night. TAKE 1 TO 2 TABLETS BY MOUTH AT BEDTIME NEEDED), Disp: 180 tablet, Rfl: 1 Plecanatide (Trulance) 3 MG tablet, Take 1 tablet by mouth Daily. (Patient not taking: Reported on 02/07/2023), Disp: 90 tablet, Rfl: 1 Allergies: Allergies Allergen Reactions Iain Inhibitors Cough Amlodipine Diarrhea Beta Adrenergic Blockers Rash Cyclobenzaprine Rash Hydrochlorothiazide Rash Hyzaar [Losartan Potassium-Hctz] Rash Jardiance [Empagliflozin] Rash Latex Rash Losartan Rash Penicillins Rash Pioglitazone Rash Spironolactone Rash Physical Exam: Vital Signs: Vitals: 02/07/23 1454 BP: 132/72 Pulse: 86 Resp: 16 Temp: 97.7 ??F (36.5 ??C) SpO2: 94% Weight: 81.2 kg (179 lb) Height: 158.8 cm (62.5 ) Body mass index is 32.22 kg/m??. Physical Exam Vitals and nursing note reviewed. Constitutional: Appearance: Normal appearance. HENT: Head: Normocephalic and atraumatic. Cardiovascular: Rate and Rhythm: Normal rate and regular rhythm. Pulmonary: Effort: Pulmonary effort is normal. Breath sounds: Normal breath sounds. Abdominal: General: Bowel sounds are normal. Musculoskeletal: Right foot: Normal. Feet: Comments: On the left he will it is noted that patient had a blackened area after cleaning off withalcohol swab black area was removed. There was no evidence of a puncture wound or foreign object infoot. There still was some mild discomfort to the plantar fascia with palpation. Skin: General: Skin is warm. Neurological: General: No focal deficit present. Mental Status: She is alert and oriented to person, place, and time. Psychiatric: Mood and Affect: Mood normal. Assessment/Plan: Diagnoses and all orders for this visit: 1. Pain of left heel (Primary) - XR Foot 3+ View Left; Future 2. Type 2 diabetes mellitus with diabetic neuropathy, with long-term current use of insulin Ordering x-ray of left foot and heel. Monitor for worsening symptoms Be sure to monitor feet nightly before bed to ensure there is no sores or lesions Diabetes Education Goal A1C 7 or less Check glucose at least 1x per day unless otherwise specified Yearly eye exams Check feet daily Eat low carb diet, low sugar Increase water intake Exercise 30-45 mins, 3-4x a week Take meds as prescribed Follow Up: Return for Next scheduled follow up. Elvira Moeller. VASILE [facility] 15:48 EST 02/07/2023 documented in this encounter Plan of Treatment Upcoming Encounters Date Type Department Care Team (Late st Contact Info) Description 03/13/2024 2:45 PM EST Office Visit [facility] CARDIOLOGY [address] [facility] [place] [address] Pj Ace MD [address] [facility] [address] [place] [address] documented as of this encounter Results * XR Foot 3+ View Left (02/07/2023 3:55 PM EST) Anatomical Region Laterality Modality Lower Extremities, Foot Left Radiogra phic Imaging 02/07/2023 5:04 PM EST Impressions 02/07/2023 5:05 PM EST Impression: No acute osseous findings. Prominent posterior and plantar calcaneal enthesophytes and correlate for plantar fasciitis and Achilles tendinopathy. Bony demineralization. Electronically Signed: Eliseo Duval MD 02/07/2023 5:05 PM EST Workstation ID: [id number] Narrative 02/07/2023 5:05 PM EST XR FOOT 3+ [...] MD 02/07/2023 5:05 PM EST Workstation ID: [id number] Elvira Moeller APRN IMG DIAGNOSTIC IMAGING ORDER JERRY Final Result documented in this encounter Visit Diagnoses Diagnosis Pain of left heel- Primary Type 2 diabetes mellitus with diabetic neuropathy, with long-term current use of insulin Pain of left heel documented in this encounter Care Teams Kettle Cleaner Relationship Specialty Start Date End Date Alex Davis MD [address] [place] [address] PCP - General Family Medicine 09/05/21 documented as of this encounter
--- OUTSIDE RECORDS SUMMARY | 2024-02-20 09:07 | XMS_ITS | Encounter Summary ---
[facility] Address [address] [place] [address] Care Team Providers Care Quality Control Chemist Name Role Phone Alex Davis MD Primary Care Provider [phone] Reason for Visit * Reason Comments Med Refill Encounter Details Date Type Department Care Team (Late st Contact Info) Description 02/17/2023 Refill [facility] FAMILY MEDICINE [address] [facility] [address] Alex Davis MD [address] [facility] [place] [address] Postlaminectomy syndrome of lumbar region; [...] Description 03/13/2024 2:45 PM EST Office Visit [facility] CARDIOLOG[facility] [address] [place] [address] Pj Ace MD [address] [facility] [address] [address] documented as of this encounter Visit Diagnoses Diagnosis Postlaminectomy syndrome of lumbar region Postlaminectomy syndrome, lumbar region Herniated lumbar intervertebral disc Displacement of lumbar intervertebral disc without myelopathy documented in this encounter Care Teams Quality Control Chemist Relationship Specialty Start Date End Date Alex Davis MD [address] [place] [address] PCP - General Family Medicine 09/05/21 documented as of this encounter
--- OUTSIDE RECORDS SUMMARY | 2024-02-20 09:07 | XMS_ITS | Encounter Summary ---
[facility] [address] [place] [address] Care Team Providers Care Monomer Recovery Supervisor Name Role Phone Alex Davis MD Primary Care Provider [phone] Reason for Visit * Reason Comments Med Refill Encounter Details Date Type Department Care Team (Late st Contact Info) Description 05/14/2023 Refill [facility] FAMILY MEDICINE [address] [facility] [place] [address] Alex Davis MD [address] [facility] [place] [address] Controlled type 2 diabetes mellitus [...] Description 03/13/2024 2:45 PM EST Office Visit [facility] CARDIOLOG[facility] [address] [facility] [place] [place] [address] Pj Ace MD [address] [facility] [address] [address] documented as of this encounter Visit Diagnoses Diagnosis 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
--- OUTSIDE RECORDS SUMMARY | 2024-02-20 09:07 | XMS_ITS | Encounter Summary ---
[facility] Address [address] [place] [id number] Care Team Providers Care Research Programmer Name Role Phone Alex Davis MD Primary Care Provider [phone] Reason for Visit * Reason Onset Date Comments Medication Problem 02/19/2023 Encounter Details Date Type Department Care Team (Late st Contact Info) Description 02/19/2023 Refill [facility] FAMILY MEDICINE [address] [place] [address] Alex Davis MD [address] [place] [address] Postlaminectomy syndrome of lumbar region; [...] encounter Miscellaneous Notes * Telephone Encounter - Alisa Nguyen RegSched Rep - 02/19/2023 3:54 PM EST Caller: Gertrudis Gonzalez Relationship: Self Best call back number: [phone] Requested Prescriptions: Requested Prescriptions Pending Prescriptions Disp Refills traMADol (ULTRAM) 50 MG tablet 90 tablet 0 Sig: Take 1 tablet by mouth Every 8 (Eight) Hours As Needed for Moderate Pain. Pharmacy where request should be sent: [facility] - [address] [phone] [facility] [phone] FX Last office visit with prescribing clinician: 12/22/2022 Last telemedicine visit with prescribing clinician: Visit date not found Next office visit with prescribing clinician: 02/27/2023 Additional details provided by patient: PATIENT NEEDS A NEW PRESCRIPTION, REQUESTING 90 DAY SUPPLY. Does the patient have less than a 3 day supply: [x] Yes [] No Would you like a call back once the refill request has been completed: [] Yes [x] No If the office needs to give you a call back, can they leave a voicemail: [] Yes [x] No Slava Welch 02/19/23 15:55 EST documented in this encounter Plan of Treatment Upcoming Encounters Date Type Department Care Team (Late st Contact Info) Description 03/13/2024 2:45 PM EST Office Visit [facility] CARDIOLOGY [address] [place] [address] Pj Ace MD [address] [facility] [address] [place] [address] documented as of this encounter Visit Diagnoses Diagnosis Postlaminectomy syndrome of lumbar region Postlaminectomy syndrome, lumbar region Herniated lumbar intervertebral disc Displacement of lumbar intervertebral disc without myelopathy documented in this encounter Care Teams Research Programmer Relationship Specialty Start Date End Date Alex Davis MD [address] [place] [address] PCP - General Family Medicine 09/05/21 documented as of this encounter
--- OUTSIDE RECORDS SUMMARY | 2024-02-20 09:07 | XMS_ITS | Encounter Summary ---
[facility] Address [address] [place] [address] Care Team Providers Care Secondary History Teacher Name Role Phone Alex Davis MD Primary Care Provider [phone] Reason for Visit * Reason Comments Med Refill Encounter Details Date Type Department Care Team (Late st Contact Info) Description 05/03/2023 Refill [facility] FAMILY MEDICINE [address] [facility] [place] [address] Alex Davis MD [address] [facility] [place] [address] Essential hypertension Social History Tobacco Use Types Packs/Day [...] 03/13/2024 2:45 PM EST Office Visit [facility] CARDIOLOGY [address] [place] [address] Pj Ace MD [address] [facility] [address] [address] documented as of this encounter Visit Diagnoses Diagnosis Essential hypertension Unspecified essential hypertension documented in this encounter Additional Health Concerns Assessment Noted Time PHQ-2 Depression Total Score: 4 02/28/20 23 11:21 AM EST documented as of this encounter Care Teams Secondary History Teacher Relationship Specialty Start Date End Date Alex Davis MD [address] [place] [address] PCP - General Family Medicine 09/05/21 documented as of this encounter
--- OUTSIDE RECORDS SUMMARY | 2024-02-20 09:07 | XMS_ITS | Encounter Summary ---
[facility] [address] [place] [address] Care Team Providers Care Cushion Worker Name Role Phone Alex Davis MD Primary Care Provider [phone] Reason for Visit * Reason Onset Date Comments Med Refill 01/25/2023 Encounter Details Date Type Department Care Team (Late st Contact Info) Description 01/25/2023 Refill [facility] FAM[facility] MEDICINE 210 [place] [address] Alex Davis MD 210 [place] [address] RLS (restless legs syndrome) Social History Tobacco Use Types Packs/Day Years [...] Office Visit [facility] CARDIOLOG[facility] [address] [facility] [place] [address] Pj Ace MD [address] [facility] [address] [address] documented as of this encounter Visit Diagnoses Diagnosis RLS (restless legs syndrome) Restless legs syndrome (RLS) documented in this encounter Care Teams Cushion Worker Relationship Specialty Start Date End Date Alex Davis MD 210 [place] [address] PCP - General Family Medicine 09/05/21 documented as of this encounter
--- OUTSIDE RECORDS SUMMARY | 2024-02-20 09:07 | XMS_ITS | Encounter Summary ---
[facility] Address [address] [place] [address] Care Team Providers Care Manager Vehicle Name Role Phone Alex Davis MD Primary Care Provider [phone] Reason for Visit * Reason Comments Med Refill Encounter Details Date Type Department Care Team (Late st Contact Info) Description 04/21/2023 Refill [facility] FAMILY MEDICINE [address] [facility] [place] [address] Alex Davis MD [address] [facility] [address] RLS (restless legs syndrome) Social [...] Description 03/13/2024 2:45 PM EST Office Visit [facility] CARDIOLOGY [address] [facility] [place] [address] Pj Ace MD [address] [facility] [address] [address] documented as of this encounter Visit Diagnoses Diagnosis RLS (restless legs syndrome) Restless legs syndrome (RLS) documented in this encounter Additional Health Concerns Assessment Noted Time PHQ-2 Depression Total Score: 4 02/28/20 23 11:21 AM EST documented as of this encounter Care Teams Manager Vehicle Relationship Specialty Start Date End Date Alex Davis MD [address] [place] [address] PCP - General Family Medicine 09/05/21 documented as of this encounter
--- OUTSIDE RECORDS SUMMARY | 2024-02-20 09:07 | XMS_ITS | Encounter Summary ---
[facility] Address [address] [place] [id number] Care Team Providers Care Staking Technician Name Role Phone Alex Davis MD Primary Care Provider [phone] Reason for Visit * Reason Onset Date Comments PRESCRIPTION REQUEST FOR DEXCOM G6 OVER PATCH Encounter Details Date Type Department Care Team (Late st Contact Info) Description 03/07/2023 Telephone [facility] FAMILY MEDICINE [address] [place] [address] Alex Davis MD [address] [place] [address] PRESCRIPTION REQUEST FOR DEXCOM G6 OVER PATCH Social History Tobacco Use Types Packs/Day Years [...] encounter Miscellaneous Notes * Telephone Encounter - Naya Santiago MA - 03/07/2023 5:15 PM EST Pt informed-pt to contact dexcom tomorrow and see what she can do to get the over patches * Telephone Encounter - Alex Davis MD - 03/07/2023 4:41 PM EST That is not an option for me to prescribe through the EPIC system we use. * Telephone Encounter - Adair Martinez - 03/07/2023 9:52 AM EST PATIENT HAS CALLED REQUESTING IF A PRESCRIPTION CAN BE SENT IN FOR DEXCOM G6 OVER PATCH SIZE 3.48 X2.61 OVAL. PATIENT IS OUT OF PATCHES AND REQUESTING A PRESCRIPTION TO BE SENT INTO [facility]. CALL BACK NUMBER IS documented in this encounter Plan of Treatment Upcoming Encounters Date Type Department Care Team (Late st Contact Info) Description 03/13/2024 2:45 PM EST Office Visit [facility] CARDIOLOGY [address] [place] [address] Pj Ace MD [address] [address] documented as of this encounter Visit Diagnoses Not on filedocumented in this encounter Additional Health Concerns Assessment Noted Time PHQ-2 Depression Total Score: 4 02/28/20 23 11:21 AM EST documented as of this encounter Care Teams Staking Technician Relationship Specialty Start Date End Date Alex Davis MD [address] [place] [address] PCP - General Family Medicine 09/05/21 documented as of this encounter
--- OUTSIDE RECORDS SUMMARY | 2024-02-20 09:07 | XMS_ITS | Encounter Summary ---
Author Organization [facility] Address [address] [place] [address] Care Team Providers Care Applications Support Analyst Name Role Phone Alex Davis MD Primary Care Provider Encounter Details Date Type Department Care Team (Late st Contact Info) Description 12/22/2022 Telephone [facility] FAMILY MEDICINE [address] [place] [address] Alex Davis MD [address] [place] [address] Social History Tobacco Use Types [...] Telephone Encounter - Nancy Das LPN - 12/25/2022 11:11 AM EDT Pt has been advised twice to schedule an appt * Telephone Encounter - Diogenes Magdaleno RegSched Rep - 12/22/2022 4:12 PM EDT Pt needs EKG results sent to: Dr. Shannan Lyon, Gastroparesis, [place] [phone] documented in this encounter Plan of Treatment Upcoming Encounters Date Type Department Care Team (Late st Contact Info) Description 03/13/2024 2:45 PM EST Office Visit [facility] CARDIOLOGY [address] [facility] [place] [address] Pj Ace MD [address] [facility] [address] [address] documented as of this encounter Visit Diagnoses Not on filedocumented in this encounter Care Teams Applications Support Analyst Relationship Specialty Start Date End Date Alex Davis MD [address] [place] [address] PCP - General Family Medicine 09/05/21 documented as of this encounter
--- OUTSIDE RECORDS SUMMARY | 2024-02-20 09:07 | XMS_ITS | Encounter Summary ---
[facility] Address [address] [place] [address] Care Team Providers Care Flight Controls Engineer Name Role Phone Alex Davis MD Primary Care Provider [phone] Encounter Details Date Type Department Care Team (Late st Contact Info) Description 02/02/2023 Telephone [facility] FAMILY MEDICINE [address] [facility] [place] [address] Alex Davis MD [address] [place] [address] Social History Tobacco Use Types [...] encounter Miscellaneous Notes * Telephone Encounter - Dinah Noyola MA - 02/05/2023 12:03 PM EST Records faxed. * Telephone Encounter - Alisa Nguyen RegSched Rep - 02/02/2023 2:07 PM EDT Caller: Gertrudis Gonzalez Relationship: Self Best call back number: [phone] What was the call regarding: PLEASE FAX RECORDS OF EKG TO [facility] FAX: [phone] DR CANO Is it okay if the provider responds through MyChart: documented in this encounter Plan of Treatment Upcoming Encounters Date Type Department Care Team (Late st Contact Info) Description 03/13/2024 2:45 PM EST Office Visit [facility] CARDIOLOGY [address] [place] [address] Pj Ace MD [address] [facility] [address] [facility] [address] [place] [address] documented as of this encounter Visit Diagnoses Not on filedocumented in this encounter Care Teams Flight Controls Engineer Relationship Specialty Start Date End Date Alex Davis MD [address] [place] [address] PCP - General Family Medicine 09/05/21 documented as of this encounter
--- OUTSIDE RECORDS SUMMARY | 2024-02-20 09:07 | XMS_ITS | Encounter Summary ---
[facility] Address [address] [place] [address] Care Team Providers Care Telephone Surveyor Name Role Phone Alex Davis MD Primary Care Provider [phone] Reason for Visit * Reason Comments Med Refill Encounter Details Date Type Department Care Team (Late st Contact Info) Description 05/06/2023 Refill [facility] FAMILY MEDICINE [address] [facility] [place] [address] Alex Davis MD [address] [facility] [place] [address] Anxiety and depression Social History [...] [facility] CARDI[facility] [address] [place] [address] Pj Ace MD [address] [facility] [address] [address] [address] documented as of this encounter Visit Diagnoses Diagnosis Anxiety and depression documented in this encounter Additional Health Concerns Assessment Noted Time PHQ-2 Depression Total Score: 4 02/28/20 23 11:21 AM EST documented as of this encounter Care Teams Telephone Surveyor Relationship Specialty Start Date End Date Alex Davis MD [address] [place] [address] PCP - General Family Medicine 09/05/21 documented as of this encounter
--- OUTSIDE RECORDS SUMMARY | 2024-02-20 09:07 | XMS_ITS | Encounter Summary ---
[facility] Address [address] [place] [address] Care Team Providers Care Accountant Bookkeeper Name Role Phone Alex Davis MD Primary Care Provider [phone] Reason for Visit * Reason Comments Postural dizziness with presyncope Hypertension Hyperlipidemia Encounter Details Date Type Department Care Team (Late st Contact Info) Description 01/25/2023 11:45 AM EDT Office Visit [facility] CARDIOLOGY [address] [place] [address] Pj Ace MD [address] [facility] [place] [address] SKELTON (dyspnea on exertion) (Primary Dx); Primary hypertension; Mixed hyperlipidemia; Type 2 diabetes mellitus with hyperglycemia, without long-term current use of insulin Social History Tobacco Use Types Packs/Day Years Used Date Smoking Tobacco: Never Smokeless Tobacco: Never Tobacco Cessation:Counseling Given: Not Answered Alcohol Use Standard Drinks/Week Comments No 0 [...] Sign Reading Time Taken Comments Blood Pressure 138/72 01/25/2023 11:58 AM EDT Pulse 92 01/25/2023 11:58 AM EDT Temperature - - Respiratory Rate - - Oxygen Saturation 95% 01/25/2023 11:58 AM EDT Inhaled Oxygen Concentration - - Weight 82.6 kg (182 lb) 01/25/2023 11:58 AM EDT Height 158.8 cm (5' 2.5 ) 01/25/2023 11:58 AM ED T Body Mass Index 32.76 01/25/2023 11:58 AM EDT documented in this encounter Progress Notes * Pj Ace MD - 01/25/2023 11:45 AM EDT [facility] Cardiology Consultation H&P Gertrudis Gonzalez [address] [place] [address] [place] [address] VISIT DATE: 01/25/23 PCP: Alex Davis MD [facility] [place] [address] 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 Villalba CC: Chief Complaint Patient presents with Postural dizziness with presyncope Hypertension Hyperlipidemia Allergies Allergies Allergen Reactions Iain Inhibitors Cough Amlodipine Diarrhea Beta Adrenergic Blockers Rash Cyclobenzaprine Rash Hydrochlorothiazide Rash Hyzaar [Losartan Potassium-Hctz] Rash Jardiance [Empagliflozin] Rash Latex Rash Losartan Rash Penicillins Rash Pioglitazone Rash Spironolactone Rash Current Medications Current Outpatient Medications: bethanechol (URECHOLINE) 50 MG [...] BY MOUTH DAILY, Disp: 90 tablet, Rfl: 0 metFORMIN ER (GLUCOPHAGE-XR) 500 MG 24 hr [...] MOUTH DAILY, Disp: 90 capsule, Rfl: 3 Plecanatide (Trulance) 3 MG tablet, Take 1 tablet by mouth Daily., Disp: 90 tablet, Rfl: 1 rOPINIRole (REQUIP) 1 MG tablet, Take 1 [...] BEDTIME NEEDED), Disp: 180 tablet, Rfl: 1 History of Present Illness JONA Gonzalez is a 67 y.o. year old female with the above mentioned PMH who presents for fu. Patient says she is feeling some better. Ironically when she started Ozempic she states her appetite increased. She notes no overt chest discomfort but her baseline shortness of breath is unchanged Vitals: 01/25/23 1158 BP: 138/72 BP Location: Right arm Patient Position: Sitting Pulse: 92 SpO2: 95% Weight: 82.6 kg (182 lb) Height: 158.8 cm (62.5 ) Body mass index is 32.76 kg/m??. PHYSICAL EXAMINATION: Constitutional: Appearance: Healthy appearance. Not in distress. Neck: Vascular: No JVR. JVD normal. Pulmonary: Effort: Pulmonary effort is normal. Breath sounds: Normal breath sounds. No wheezing. No rhonchi. No rales. Chest: Chest wall: Not tender to palpatation. Cardiovascular: PMI at left midclavicular line. Normal rate. Regular rhythm. Normal S1. Normal S2. Murmurs: There is no murmur. No gallop. No click. No rub. Pulses: Intact distal pulses. Edema: Peripheral edema absent. Abdominal: General: Bowel sounds are normal. Palpations: Abdomen is soft. Tenderness: There is no abdominal tenderness. Musculoskeletal: Normal range of motion. General: No tenderness. Skin: General: Skin is warm and dry. Neurological: General: No focal deficit present. Mental Status: Alert and oriented to person, place and time. Diagnostic Data: Procedures Lab Results Component Value Date CHLPL 226 (H) 05/22/2022 TRIG 212 (H) 05/22/2022 HDL 58 05/22/2022 Lab Results Component Value Date GLUCOSE 159 (H) 11/27/2022 BUN 15 11/27/2022 CREATININE 0.69 11/27/2022 NA 142 11/27/2022 K 4.7 11/27/2022 CL 101 11/27/2022 CO2 28 11/27/2022 Lab Results Component Value Date HGBA1C 7.3 (H) 11/27/2022 Lab Results Component Value Date WBC 6.0 11/27/2022 HGB 14.4 11/27/2022 HCT 43.9 11/27/2022 PLT 260 11/27/2022 ASSESSMENT: Diagnosis Plan 1. SKELTON (dyspnea on exertion) 2. Primary hypertension 3. Mixed hyperlipidemia 4. Type 2 diabetes mellitus with hyperglycemia, without long-term current use of insulin PLAN: SKELTON preserved LV function. With any chest pressure low threshold for ischemic evaluation. Hypertension controlled currently losartan. Recommended utmost attempts to wean and discontinue nonsteroidal anti-inflammatory Mixed dyslipidemia intolerant to statin therapy discussed bempedoic acid and PCSK9 inhibitors. At current she is willing to rechallenge with Zetia Diabetes poorly controlled improving w transition of medication and addition of Dexcom device No ref. provider found, thank you for referring Ms. Gonzalez for evaluation. I have forwarded my electronically generated recommendations to you for review. Please do not hesitate to call with any questions. Pj Ace MD, [facility] documented in this encounter Plan of Treatment Upcoming Encounters Date Type Department Care Team (Late st Contact Info) Description 03/13/2024 2:45 PM EST Office Visit [facility] CARDIOLOGY [address] [facility] [place] [address] Pj Ace MD [facility] [address] [address] documented as of this encounter Visit Diagnoses Diagnosis SKELTON (dyspnea on exertion)- Primary Other dyspnea and respiratory abnormality Primary hypertension Unspecified essential hypertension Mixed hyperlipidemia Type 2 diabetes mellitus with hyperglycemia, without long-term current use of insulin documented in this encounter Care Teams Accountant Bookkeeper Relationship Specialty Start Date End Date Alex Davis MD [address] [place] [address] PCP - General Family Medicine 09/05/21 documented as of this encounter
--- OUTSIDE RECORDS SUMMARY | 2024-02-20 09:07 | XMS_ITS | Encounter Summary ---
[facility] [address] [place] [address] Care Team Providers Care Data Collection Interviewer Name Role Phone Alex Davis MD Primary Care Provider [phone] Reason for Referral * Diagnostic Imaging (Routine) - Closed Specialty Diagnoses / Procedures Referred By Contac t Referred To Contact Radiology Diagnoses Screening mammogram for breast cancer Procedures Mammo Screening Digital Tomosynthesis Bilateral With CAD Alex Davis MD [address] [place] [address] Phone: tel: fax: [facility] [address] [place] [address] Phone: tel: Referral ID Status Reason Start Date Expiration Date Visits Re quested Visits Authorized [id number] Closed 02/27/2023 02/27/2024 1 1 Reason for Visit * Reason Comments Diabetes The sari is causi ng emotional changes. She feels depressed. 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, with long-term current use of insulin, unspecified retinopathy severity; Mixed hyperlipidemia; Essential hypertension; Anxiety and depression; Chronic idiopathic constipation; Screening mammogram for breast cancer Social History Tobacco Use Types Packs/Day Years [...] Sign Reading Time Taken Comments Blood Pressure 160/90 02/27/2023 11:03 AM EST Pulse 79 02/27/2023 11:03 AM EST Temperature 36.3 ??C (97.3 ??F) 02/27/2023 1 1:03 AM EST Respiratory Rate - - Oxygen Saturation 95% 02/27/2023 11: 03 AM EST Inhaled Oxygen Concentration - - Weight 81.6 kg (179 lb 12.8 oz) 023 11:03 AM EST Height 158.8 cm (5' 2.5 ) 02/27/2023 11 :03 AM EST Body Mass Index 32.36 02/27/2023 11:03 AM EST documented in this encounter Progress Notes * Alex Davis MD - 02/27/2023 11:00 AM EST Images from the original note were not included. The ABCs of the Annual Wellness Visit Subsequent Medicare Wellness Visit Subjective Gertrudis Gonzalez is a 67 y.o. female who presents for a Subsequent Medicare Wellness Visit. The following portions of the patient's history were reviewed and updated as appropriate: allergies, current medications, past family history, past medical history, past social history, past surgical history, and problem list. Compared to one year ago, the patient feels her physical health is the same. Compared to one year ago, the patient feels her mental health is worse. Recent Hospitalizations: She was not admitted to the hospital during the last year. Current Medical Providers: Patient Care Team: Alex Davis MD as PCP - General (Family Medicine) Bebeto Adams MD as Consulting Physician (Pain Medicine) Damien Berg MD as Consulting Physician (Neurosurgery) Leidy Robertson MD as Consulting Physician (Internal Medicine) Guero Lunsford PA-C as Physician Range Ecologist (Physician Range Ecologist) Slime Hammer APRN as Nurse Practitioner (Gastroenterology) Roc Tracey PA-C as Physician Range Ecologist (Family Medicine) Matty Lackey MD as Consulting Physician (Gastroenterology) Pj Ace MD as Consulting Physician (Cardiology) Shannan Lyon MD as Consulting Physician (Gastroenterology) Outpatient Medications Prior to Visit Medication Sig Dispense Refill ??? traMADol (ULTRAM) 50 MG tablet Take 1 tablet by mouth Every 8 (Eight) Hours As Needed for Moderate Pain. 90 tablet 1 ??? bethanechol (URECHOLINE) 50 MG tablet Take 1 tablet by mouth 2 (Two) Times a Day. ??? Continuous Blood Gluc Sensor (Dexcom G6 Sensor) Every 10 (Ten) Days. 9 each 5 ??? Continuous Blood Gluc Transmit (Dexcom G5 Mobile Transmitter) misc 1 each Daily. 1 each 3 ??? docusate sodium (COLACE) 100 MG capsule Take 1 capsule by mouth 2 (Two) Times a Day. ??? furosemide (LASIX) 20 MG tablet Take 1 tablet by mouth As Needed. ??? Insulin Glargine (LANTUS SOLOSTAR) 100 UNIT/ML injection pen Inject 60 Units under the skin into the appropriate area as directed Daily. Disp quant suff (Patient taking differently: Inject 68 Units under the skin into the appropriate area as directed Daily. Disp quant suff) 30 mL 5 ??? Insulin Lispro, 1 Unit Dial, (HumaLOG KwikPen) 100 UNIT/ML solution pen- injector Take 16 units before meals, correction 2:50 >150, MDD 60U (Patient taking differently: As Needed. Take 16 unitsbefore meals, correction 2:50 >150, MDD 60U) 54 mL 1 ??? Insulin Pen Needle 32G X 4 MM misc Use daily with insulin up to 6 times per day 600 each 3 ??? losartan (COZAAR) 100 MG tablet Take 1 tablet by mouth Daily. 90 tablet 1 ??? meloxicam (MOBIC) 7.5 MG tablet TAKE 1 TABLET BY MOUTH DAILY 90 tablet 3 ??? metFORMIN ER (GLUCOPHAGE-XR) 500 MG 24 hr tablet Take 2 tablets by mouth Daily With Breakfast. (Patient taking differently: Take 1 tablet by mouth Daily With Breakfast.) 180 tablet 3 ??? metoclopramide (REGLAN) 5 MG tablet Take 1 tablet by mouth 3 (Three) Times a Day. ??? NIFEdipine CC (ADALAT CC) 60 MG 24 hr tablet Take 1 tablet by mouth Daily. 90 tablet 3 ??? omeprazole (priLOSEC) 40 MG capsule TAKE 1 CAPSULE BY MOUTH DAILY 90 capsule 3 ??? rOPINIRole (REQUIP) 1 MG tablet Take 1 tablet by mouth Every Night. Take 1 hour before bedtime.90 tablet 0 ??? Semaglutide, 1 MG/DOSE, (Ozempic, 1 MG/DOSE,) 4 MG/3ML solution pen-injector Inject 1 mg under the skin into the appropriate area as directed 1 (One) Time Per Week. 9 mL 1 ??? topiramate (TOPAMAX) 50 MG tablet Take 1 tablet by mouth Daily As Needed (migraine). 90 tablet 1 ??? traZODone (DESYREL) 50 MG tablet TAKE 1 TO 2 TABLETS BY MOUTH AT BEDTIME NEEDED (Patient taking differently: Take 1 tablet by mouth Every Night. TAKE 1 TO 2 TABLETS BY MOUTH AT BEDTIME NEEDED) 180 tablet 1 ??? ezetimibe (ZETIA) 10 MG tablet Take 1 tablet by mouth Daily. 90 tablet 3 ??? Plecanatide (Trulance) 3 MG tablet Take 1 tablet by mouth Daily. (Patient not taking: Reported on 02/07/2023) 90 tablet 1 No facility-administered medications prior to visit. Opioid medication/s are on active medication list. and I have evaluated her active treatment plan and pain score trends (see table). Vitals: 02/27/23 1103 PainSc: 4 PainLoc: Foot I have reviewed the chart for potential of high risk medication and harmful drug interactions in the elderly. Patient Active Problem List Diagnosis ??? Anxiety and depression ??? Fatigue ??? Mixed hyperlipidemia ??? Herniated lumbar intervertebral disc ??? Vaginal atrophy ??? Postlaminectomy syndrome of lumbar region ??? Meningeal adhesions/lumbar arachnoiditis ??? Lumbar facet arthropathy/lumbar spondylosis without myelopathy ??? Sacroiliac joint dysfunction of left side ??? Physical deconditioning ??? Insomnia ??? History of migraine headaches ??? Essential hypertension ??? Myofascial pain syndrome ??? 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, with long-term current use of insulin ??? Steatosis of liver ??? Obstructive sleep apnea, adult ??? Encounter for fitting and adjustment of neuropacemaker of spinal cord ??? Migration of spinal cord stimulator ??? 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 Mild nonproliferative diabetic retinopathy of both eyes without macular edema associated with type 2 diabetes mellitus ??? Gastroparesis Advance Care Planning Advance Care Planning Advance Directive is not on file. ACP discussion was held with the patient during this visit. Patient has an advance directive (not in EMR), copy requested. Objective Vitals: 02/27/23 1103 BP: 160/90 BP Location: Left arm Patient Position: Sitting Cuff Size: Adult Pulse: 79 Temp: 97.3 ??F (36.3 ??C) TempSrc: Infrared SpO2: 95% Weight: 81.6 kg (179 lb 12.8 oz) Height: 158.8 cm (62.5 ) PainSc: 4 PainLoc: Foot Estimated body mass index is 32.36 kg/m?? as calculated from the following: Height as of this encounter: 158.8 cm (62.5 ). Weight as of this encounter: 81.6 kg (179 lb 12.8 oz). Does the patient have evidence of cognitive impairment? No HEALTH RISK ASSESSMENT Smoking Status: Social History Tobacco Use Smoking Status Never Smokeless Tobacco Never Alcohol Consumption: Social History Substance and Sexual Activity Alcohol Use No Fall Risk Screen: HAILEYADI Fall Risk Assessment was completed, and patient is at LOW risk for falls.Assessment completed on:02/27/2023 Depression Screenin02/27/2023 11:21 AM PHQ-2/PHQ-9 Depression Screening Little Interest or Pleasure in Doing Things 1-->several days Feeling Down, Depressed or Hopeless 3-->nearly every day PHQ-9: Brief Depression Severity Measure Score 4 If You Checked Off Any Problems, How Difficult Have These Problems Made It For You to Do Your Work,Take Care of Things at Home, or Get Along with Other People? somewhat difficult Health Habits and Functional and Cognitive Screenin02/27/2023 11:00 AM Functional & Cognitive Status Do you have difficulty preparing food and eating? No Do you have difficulty bathing yourself, getting dressed or grooming yourself? No Do you have difficulty using the toilet? No Do you have difficulty moving around from place to place? No Do you have trouble with steps or getting out of a bed or a chair? No Current Diet Well Balanced Diet Dental Exam Up to date Eye Exam Not up to date Exercise (times per week) 0 times per week Current Exercises Include No Regular Exercise Do you need help using the phone? No Are you deaf or do you have serious difficulty hearing? Yes Do you need help to go to places out of walking distance? No Do you need help shopping? No Do you need help preparing meals? No Do you need help with housework? No Do you need help with laundry? No Do you need help taking your medications? No Do you need help managing money? No Do you ever drive or ride in a car without wearing a seat belt? No Have you felt unusual stress, anger or loneliness in the last month? Yes Who do you live with? Spouse If you need help, do you have trouble finding someone available to you? No Have you been bothered in the last four weeks by sexual problems? No Do you have difficulty concentrating, remembering or making decisions? No Age-appropriate Screening Schedule: Refer to the list below for future screening recommendations based on patient's age, sex and/or medical conditions. Orders for these recommended tests are listed in the plan section. The patient has been provided with a written plan. Health Maintenance Topic Date Due ??? DXA SCAN Never done ??? COVID-19 Vaccine (1) Never done ??? ZOSTER VACCINE (1 of 2) Never done ??? Pneumococcal Vaccine 65+ (2 - PCV) 05/08/2017 ??? DIABETIC EYE EXAM 06/23/2022 ??? DIABETIC FOOT EXAM 07/26/2022 ??? MAMMOGRAM 09/28/2022 ??? ANNUAL WELLNESS VISIT 02/17/2023 ??? COLORECTAL CANCER SCREENING 05/20/2023 ??? LIPID PANEL 05/22/2023 ??? HEMOGLOBIN A1C 05/30/2023 ??? URINE MICROALBUMIN 08/26/2023 ??? BMI FOLLOWUP 12/23/2023 ??? TDAP/TD VACCINES (2 - Td or Tdap) 05/07/2025 ??? HEPATITIS C SCREENING Completed ??? INFLUENZA VACCINE Completed ??? PAP SMEAR Discontinued [facility] Preventative Services Quick Reference Risk Factors Identified During Encounter Depression/Dysphoria: Prescribed new antidepressant medication treatment. Follow up visit planned. Inactivity/Sedentary: Patient was advised to exercise at least 150 minutes a week per CDC recommendations. Vision Screening Recommended The above risks/problems have been discussed with the patient. Pertinent information has been shared with the patient in the After Visit Summary. An After Visit Summary and PPPS were made available to the patient. Follow Up: Next Medicare Wellness visit to be scheduled in 1 year. Additional E&M Note during same encounter follows: Patient has multiple medical problems which are significant and separately identifiable that require additional work above and beyond the Medicare Wellness Visit. Chief Complaint Diabetes (The ozempic is causing emotional changes. She feels depressed. ) Subjective Diabetes Gertrudis Gonzalez is also being seen today for DM She has noted her moodh as been worse She is more irritable Feels sad a lot of the time Diabetes Mellitus Type II, Follow-up: Gertrudis Gonzalez is a 67 y.o. female who is here for follow-up of Type 2 diabetes mellitus. Current symptoms/problems include none and have been stable. Patient is adherent with medications. Known diabetic complications: retinopathy Cardiovascular risk factors: advanced age (older than 55 for men, 65 for women), diabetes mellitus,dyslipidemia, hypertension, and obesity (BMI >= 30 kg/m2) Current diabetic medications include ozempic, lantus and metformin. Current monitoring regimen: home blood tests - daily Home blood sugar records: fasting range: dexcom She is on JORGITO inhibitor or angiotensin II receptor fern. Patient is on a statin. Gertrudis Gonzalez is here for follow-up of hypertension of several years duration. She is not exercising and is not adherent to a low-salt diet. Patient does not check her blood pressure. She is compliant with meds. Gertrudis Gonzalez returns today for follow up of Hyperlipidemia Gertrduis indicates her exercise level as not at all. Diet: eating less with medicine Patient is compliant with medications Any side effects to medications: chest pain No myalgia No memory change No Pt is not due for labs Still with constipation Linjonahs did not work She would like to try trulance Review of Systems Constitutional: Negative. Respiratory: Negative. Cardiovascular: Negative. Gastrointestinal: Positive for constipation. Psychiatric/Behavioral: Positive for agitation and dysphoric mood. Objective Vital Signs: BP 160/90 (BP Location: Left arm, Patient Position: Sitting, Cuff Size: Adult) Pulse 79 Temp 97.3 ??F (36.3 ??C) (Infrared) Ht 158.8 cm (62.5 ) Wt 81.6 kg (179 lb 12.8 oz) SpO2 95% BMI 32.36 kg/m?? Physical Exam Assessment and Plan Diagnoses and all orders for this visit: 1. Medicare annual wellness visit, subsequent (Primary) 2. 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 Mixed hyperlipidemia - Comprehensive Metabolic Panel - Lipid Panel - ezetimibe (ZETIA) 10 MG tablet; Take 1 tablet by mouth Daily. Dispense: 90 tablet; Refill: 1 4. Essential hypertension - CBC & Differential - Comprehensive Metabolic Panel 5. Anxiety and depression - desvenlafaxine (Pristiq) 50 MG 24 hr tablet; Take 1 tablet by mouth Daily. Dispense: 30 tablet; Refill: 2 6. Chronic idiopathic constipation - Plecanatide (Trulance) 3 MG tablet; Take 1 tablet by mouth Daily. Dispense: 90 tablet; Refill: 1 7. Screening mammogram for breast cancer - Mammo Screening Digital Tomosynthesis Bilateral With CAD; Future Other orders - Fluzone High-Dose 65+yrs ([id number]) Medicare wellness completed as above. Flu shot given and mammogram ordered. Recheck DM labs and continue meds. Will f/u pending results. She feels mood has been worse with ozempic but she is losing weight Mood has had issues in past. Will use pristiq for mood and recheck in future. New med sent in Continue zetia, statin intolerant in past. F/u pending cholesterol Ok trulance for constipation. 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, with long-term current use of insulin, unspecified retinopathy severity Essential hypertension HEMOGLOBIN A1C Routine 02/27/2023 11:37 AM EST 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 A [place] marker is placed over a visible skin [...] MD IMG MAMMOGRAPHY ORDERABLES Rosie patel Result * (ABNORMAL) Hemoglobin A1c (02/27/2023 11:37 AM EST) Hemoglobin A1C 6.80(H) 4.80 - 5.60 % [facility] Comment: Hemoglobin A1C Ranges: Increased Risk for Diabetes ??5.7% to 6.4% Diabetes ? >= 6.5% Diabetic Goal ?< 7.0% Blood 02/27/2023 11:3 7 AM EST 02/27/2023 Comment:BLOOD Narrative [facility] - 02/28/2023 3:07 AM EST Performed at: ??[address] ??[id number] Label Designer: Lane Haile MD, Phone: ??[phone] Patient Fasting: ??Y us Alex Davis MD LAB BLOOD ORDERABLES Final Resu lt [facility] (AMBULATORY) [address] [place] [address], [facility] [address] [place] [address], * (ABNORMAL) Lipid Panel (02/27/2023 11:37 AM EST) Pathologist [facility] Total Cholesterol 201(H) 0 - 200 mg/dL [facility] Comment: [...] 160-189 mg/dL Very High ?>189 mg/dL Triglycerides 148 0 - 150 mg/dL [facility] HDL Cholesterol 54 40 - 60 mg/dL [facility] VLDL Cholesterol Bill 26 5 - 40 mg/dL [facility] LDL Chol Calc ([facility]) 121(H) 0 - 100 mg/dL [facility] Blood 02/27/2023 11:3 7 AM EST 02/27/2023 Comment:BLOOD Narrative [facility] - 02/28/2023 3:07 AM EST Performed at: ??[address] ??[id number] Label Designer: Lane Haile MD, Phone: ??[phone] Patient Fasting: ??Y us Alex Davis MD LAB BLOOD ORDERABLES Final Resu lt Performing Organization Address City/State/[facility] Co de Phone Number [facility] [address] [id number], [facility] [address] [place] [id number], * (ABNORMAL) Comprehensive Metabolic Panel (02/27/2023 11:37 AM EST) Pathologist [facility] Glucose 112(H) 65 - 99 mg/dL [facility] BUN 14 8 - 23 mg/dL [facility] Creatinine 0.65 0.57 - 1.00 mg/dL [facility] EGFR Result 97.2 >60.0 mL/min/1.7 3 [facility] Comment: GFR Normal >60 Chronic Kidney Disease <60 Kidney Failure <15 BUN/Creatinine Ratio 21.5 7.0 - 25.0 [facility] Sodium 139 136 - 145 mmol/L [facility] Potassium 4.8 3.5 - 5.2 mmol/L [facility] Chloride 101 98 - 107 mmol/L [facility] Total CO2 31.7(H) 22.0 - 29.0 mmol/L [facility] Calcium 10.2 8.6 - 10.5 mg/dL [facility] Total Protein 6.9 6.0 - 8.5 g/dL [facility] Albumin 4.4 3.5 - 5.2 g/dL [facility] Globulin 2.5 gm/dL [facility] A/G Ratio 1.8 g/dL [facility] Total Bilirubin 0.4 0.0 - 1.2 mg/dL [facility] Alkaline Phosphatase 145(H) 39 - 117 U/L [facility] AST (SGOT) 46(H) 1 - 32 U/L [facility] ALT (SGPT) 51(H) 1 - 33 U/L [facility] Blood 02/27/2023 11:3 7 AM EST 02/27/2023 Comment:BLOOD Narrative [facility] - 02/28/2023 3:07 AM EST Performed at: ??[address] ??[id number] Label Designer: Lane Haile MD, Phone: ??[phone] Patient Fasting: ??Y us Alex Davis MD LAB BLOOD ORDERABLES Final Resu lt [facility] ([facility]BULATORY) [address] [place] [address], [facility] [address] [place] [address], * CBC & Differential (02/27/2023 11:37 AM EST) WBC 6.24 3.40 - 10.80 10*3/mm3 [facility] RBC 5.10 3.77 - 5.28 10*6/mm3 [facility] Hemoglobin 14.5 12.0 - 15.9 g/dL [facility] Hematocrit 44.6 34.0 - 46.6 % [facility] MCV 87.5 79.0 - 97.0 fL [facility] MCH 28.4 26.6 - 33.0 pg [facility] MCHC 32.5 31.5 - 35.7 g/dL [facility] RDW 12.5 12.3 - 15.4 % [facility] Platelets 297 140 - 450 10*3/mm3 [facility] Neutrophil Rel % 64.1 42.7 - 76.0 % [facility] Lymphocyte Rel % 26.4 19.6 - 45.3 % [facility] Monocyte Rel % 5.6 5.0 - 12.0 % [facility] Eosinophil Rel % 2.4 0.3 - 6.2 % [facility] Basophil Rel % 1.0 0.0 - 1.5 % [facility] Neutrophils Absolute 4.00 1.70 - 7.00 10*3/mm3 [facility] Lymphocytes Absolute 1.65 0.70 - 3.10 10*3/mm3 [facility] Monocytes Absolute 0.35 0.10 - 0.90 10*3/mm3 [facility] Eosinophils Absolute 0.15 0.00 - 0.40 10*3/mm3 [facility] Basophils Absolute 0.06 0.00 - 0.20 10*3/mm3 [facility] Immature Granulocyte Rel % 0.5 0.0 - 0.5 % [facility] Immature Grans Absolute 0.03 0.00 - 0.05 10*3/mm3 [facility] nRBC 0.0 0.0 - 0.2 /100 WBC [facility] Blood 02/27/2023 11:3 7 AM EST 02/27/2023 Comment:BLOOD Narrative [facility] ([facility]) - 02/28/2023 3:07 AM EST Performed at: ??[address] - [address] ??[id number] Label Designer: Lane Haile MD, Phone: ??[phone] Patient Fasting: ??Y us Alex Davis MD LAB BLOOD ORDERABLES Final Resu lt [facility] ([facility]) [address] [place] [address], [place] [phone] [facility] [address] [place] [address], documented in this encounter Visit Diagnoses Diagnosis Medicare annual wellness visit, subsequent- Primary 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, with long-term current use of insulin, unspecified retinopathy severity Mixed hyperlipidemia Essential hypertension Unspecified essential hypertension Anxiety and depression Chronic idiopathic constipation Unspecified constipation Screening mammogram for breast cancer Screening mammogram for breast cancer documented in this encounter Additional Health Concerns Assessment Noted Time PHQ-2 Depression Total Score: 4 02/28/20 23 11:21 AM EST documented as of this encounter Care Teams Data Collection Interviewer Relationship Specialty Start Date End Date Alex Davis MD [address] [place] [address] PCP - General Family Medicine 09/05/21 documented as of this encounter
--- OUTSIDE RECORDS SUMMARY | 2024-02-20 09:07 | XMS_ITS | Encounter Summary ---
[facility] [address] [place] [address] Care Team Providers Care Survey Statistician Name Role Phone Alex Davis MD Primary Care Provider [phone] Reason for Visit * Reason Comments Med Refill Encounter Details Date Type Department Care Team (Late st Contact Info) Description 05/25/2023 Refill [facility] [address] [facility] [place] [address] Alex Davis MD [address] [facility] [place] [address] Anxiety and depression Social History [...] EST Office Visit [facility] [address] [place] [address] Pj Ace MD [address] [facility] [address] [address] documented as of this encounter Visit Diagnoses Diagnosis Anxiety and depression documented in this encounter Additional Health Concerns Assessment Noted Time PHQ-2 Depression Total Score: 4 02/28/20 23 11:21 AM EST documented as of this encounter Care Teams Survey Statistician Relationship Specialty Start Date End Date Alex Davis MD [address] [place] [address] PCP - General Family Medicine 09/05/21 documented as of this encounter
--- OUTSIDE RECORDS SUMMARY | 2024-02-20 09:08 | XMS_ITS | Encounter Summary ---
[facility] Address [address] [place] [address] Care Team Providers Care Escalator Constructor Name Role Phone Alex Davis MD Primary Care Provider [phone] Reason for Visit * Reason Comments Med Refill Encounter Details Date Type Department Care Team (Late Contact Info) Description 11/21/2022 Refill [facility] FAMILY MEDICINE [address] [place] [address] Alex Davis MD [address] [place] [address] RLS (restless legs syndrome); Postlaminectomy syndrome of lumbar region; Herniated lumbar [...] Visit [facility] CARDIOLOGY [address] [facility] [place] [address] Pj Ace MD [address] [facility] [address] [place] [address] documented as of this encounter Visit Diagnoses Diagnosis RLS (restless legs syndrome) Restless legs syndrome (RLS) Postlaminectomy syndrome of lumbar region Postlaminectomy syndrome, lumbar region Herniated lumbar intervertebral disc Displacement of lumbar intervertebral disc without myelopathy documented in this encounter Care Teams Escalator Constructor Relationship Specialty Start Date End Date Alex Davis MD [address] [place] [id number] PCP - General Family Medicine 09/05/21 documented as of this encounter
--- OUTSIDE RECORDS SUMMARY | 2024-02-20 09:08 | XMS_ITS | Encounter Summary ---
[facility] Address [address] [place] [address] Care Team Providers Care Processing Analyst Name Role Phone Alex Davis MD Primary Care Provider [phone] Reason for Visit * Reason Onset Date Comments MED REFILLS 05/17/2022 Encounter Details Date Type Department Care Team (Late st Contact Info) Description 05/17/2022 Telephone [facility] FAMILY MEDICINE [address] [place] [address] Alex Davis MD [address] [place] [address] MED REFILLS Social History Tobacco Use Types Packs/Day Years [...] encounter Miscellaneous Notes * Telephone Encounter - Alex Davis MD - 05/17/2022 5:07 PM EST Sent in, they may need PA? * Telephone Encounter - Mat Dick RegSched Rep - 05/17/2022 10:02 AM EST Caller: Gertrudis Gonzalez Relationship: Self Best call back number: [phone] Requested Prescriptions: Requested Prescriptions Pending Prescriptions Disp Refills ??? Insulin Glargine (LANTUS SOLOSTAR) 100 UNIT/ML injection pen 30 mL 5 Sig: Inject 60 Units under the skin into the appropriate area as directed Daily. Disp quant suff Pharmacy where request should be sent: [facility] ) - [place], [place] - [address] [phone] - [phone] FX Additional details provided by patient: PATIENT IS ASKING FOR DEXCOM SENSOR Does the patient have less than a 3 day supply: [x] Yes [] No Slava Robins 05/17/22 10:03 EST documented in this encounter Plan of Treatment Upcoming Encounters Date Type Department Care Team (Late st Contact Info) Description 03/13/2024 2:45 PM EST Office Visit [facility] CARDIOLOGY [address] [place] [address] Pj Ace MD [address] [facility] [address] [place] [address] documented as of this encounter Visit Diagnoses Diagnosis 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
--- OUTSIDE RECORDS SUMMARY | 2024-02-20 09:08 | XMS_ITS | Encounter Summary ---
[facility] [address] [place] [address] Care Team Providers Care Movement Therapist Name Role Phone Alex Davis MD Primary Care Provider [phone] Reason for Visit * Reason Comments Med Refill Encounter Details Date Type Department Care Team (Late Contact Info) Description 09/18/2022 Refill [facility] FAMILY MEDICINE [address] [place] [address] Alex Davis MD [address] [place] [address] Social History Tobacco Use Types [...] Encounters Date Type Department Care Team (Late Contact Info) Description 03/13/2024 2:45 PM EST Office Visit [facility]IOLOGY [address] [facility] [place] [address] Pj Ace MD [facility] [address] [address] documented as of this encounter Visit Diagnoses Not on filedocumented in this encounter Care Teams Movement Therapist Relationship Specialty Start Date End Date Alex Davis MD [address] [place] [address] PCP - General Family Medicine 09/05/21 documented as of this encounter
--- OUTSIDE RECORDS SUMMARY | 2024-02-20 09:08 | XMS_ITS | Encounter Summary ---
[facility] Address [address] [place] [address] Care Team Providers Care Needle Valve Operator Name Role Phone Alex Davis MD Primary Care Provider [phone] Reason for Visit * Reason Onset Date Comments Med Refill 01/06/2022 Encounter Details Date Type Department Care Team (Late st Contact Info) Description 01/06/2022 Refill [facility] FAMILY MEDICINE [address] [place] [address] Alex Davis MD [address] [place] [address] Gastroesophageal reflux disease without esophagitis Social History Tobacco Use Types Packs/Day Years Used Date Smoking Tobacco: Never Smokeless Tobacco: Never Alcohol Use Standard Drinks/Week Comments No 0 (1 standard drink = 0.6 oz pur e alcohol) PHQ-2 Answer Date Recorded Retired PHQ-9: Brief Depression Severity Measure Score 0 09/05/2021 Comments No Sex and Gender Information Value Date Recorded Sex Assigned at Not on file Legal Sex Female 10:25 AM EDT Gender Identity Not on file Sexual Orientation Not on file documented as of this encounter Miscellaneous Notes * Telephone Encounter - Elisa Goodman RegSched Rep - 01/06/2022 3:09 PM EDT Caller: Gertrudis Gonzalez Relationship: Self Best call back number: [phone] Requested Prescriptions: Requested Prescriptions Pending Prescriptions Disp Refills ??? omeprazole (priLOSEC) 40 MG capsule 90 capsule 3 Sig: Take 1 capsule by mouth Daily. Pharmacy where request should be sent: [facility] - [place], [place] - [address] [place] [address] - [phone] [facility] [phone] Additional details provided by patient: THE PATIENTS REPORTS SHE IS OUT OF MEDICATION AND REQUESTING 90 DAY SUPPLY WITH ADDITIONAL REFILLS Does the patient have less than a 3 day supply: [x] Yes [] No Slava Bentley Rep 01/06/22 15:10 EDT documented in this encounter Plan of Treatment Upcoming Encounters Date Type Department Care Team (Late st Contact Info) Description 03/13/2024 2:45 PM EST Office Visit [facility] CARDIOLOGY [address] [place] [address] Pj Ace MD [facility] [address] [address] documented as of this encounter Visit Diagnoses Diagnosis Gastroesophageal reflux disease without esophagitis Esophageal reflux documented in this encounter Care Teams Needle Valve Operator Relationship Specialty Start Date End Date Alex Davis MD [address] [place] [address] PCP - General Family Medicine 09/05/21 documented as of this encounter
--- OUTSIDE RECORDS SUMMARY | 2024-02-20 09:08 | XMS_ITS | Encounter Summary ---
Author Organization [facility] Address [address] [place] [address] Care Team Providers Care Ingredient Scaler Name Role Phone Alex Davis MD Primary Care Provider [phone] Reason for Visit * Reason Onset Date Comments Med Refill 07/31/2022 Encounter Details Date Type Department Care Team (Late st Contact Info) Description 07/31/2022 Refill [facility] FAMILY MEDICINE [address] [place] [address] Alex Davis MD [address] [place] [address] Social History Tobacco Use Types Packs/Day Years Used Date Smoking Tobacco: Never Smokeless Tobacco: Never Alcohol Use Standard Drinks/Week Comments No 0 (1 standard drink = 0.6 oz pur e alcohol) PHQ-2 Answer Date Recorded Retired PHQ-9: Brief Depression Severity Measure Score 0 02/17/2022 Comments No Sex and Gender Information Value Date Recorded Sex Assigned at Not on file Legal Sex Female 10:25 AM EDT Gender Identity Not on file Sexual Orientation Not on file documented as of this encounter Miscellaneous Notes * Telephone Encounter - Pamela Mcnulty RegSched Rep - 07/31/2022 12:14 PM EDT Caller: Gertrudis Gonzalez Relationship: Self Best call back number: [phone] Requested Prescriptions: Requested Prescriptions Pending Prescriptions Disp Refills ??? omeprazole (priLOSEC) 40 MG capsule 90 capsule 0 Sig: Take 1 capsule by mouth Daily. ??? NIFEdipine CC (ADALAT CC) 60 MG 24 hr tablet Pharmacy where request should be sent: [facility] ) - [place], [place] - [address] [phone] [facility] [phone] FX Last office visit with prescribing clinician: 05/22/2022 Last telemedicine visit with prescribing clinician: 08/21/2022 Next office visit with prescribing clinician: 08/21/2022 Additional details provided by patient: OUT OF MEDICATION Does the patient have less than a 3 day supply: [x] Yes [] No Would you like a call back once the refill request has been completed: [] Yes [x] No If the office needs to give you a call back, can they leave a voicemail: [] Yes [x] No Slava Payne 07/31/22 12:14 EDT documented in this encounter Plan of Treatment Upcoming Encounters Date Type Department Care Team (Late st Contact Info) Description 03/13/2024 2:45 PM EST Office Visit [facility] CARDIOLOGY [address] [place] [address] Pj Ace MD [address] [facility] [address] [facility] [address] [place] [address] documented as of this encounter Visit Diagnoses Not on filedocumented in this encounter Care Teams Ingredient Scaler Relationship Specialty Start Date End Date Alex Davis MD [address] [place] [address] PCP - General Family Medicine 09/05/21 documented as of this encounter
--- OUTSIDE RECORDS SUMMARY | 2024-02-20 09:08 | XMS_ITS | Encounter Summary ---
[facility] Address [address] [place] [address] Care Team Providers Care Hazardous Materials Tanker Driver Name Role Phone Alex Davis MD Primary Care Provider [phone] Reason for Visit * Reason Comments Med Refill Encounter Details Date Type Department Care Team (Late st Contact Info) Description 05/15/2022 Refill [facility] FAMILY MEDICINE [address] [place] [address] Alex Davis MD [address] [place] [address] Primary insomnia Social History Tobacco Use Types Packs/Day Years [...] Office Visit [facility]IOLOG[facility] [address] [facility] [place] [address] Pj Ace MD [facility] [address] [address] documented as of this encounter Visit Diagnoses Diagnosis Primary insomnia Persistent disorder of initiating or maintaining sleep documented in this encounter Care Teams Hazardous Materials Tanker Driver Relationship Specialty Start Date End Date Alex Davis MD [address] [facility] [place] [address] PCP - General Family Medicine 09/05/21 documented as of this encounter
--- OUTSIDE RECORDS SUMMARY | 2024-02-20 09:08 | XMS_ITS | Encounter Summary ---
Author Organization [facility] Address [address] [place] [address] Care Team Providers Care Director Of Cardiac Rehabilitation Name Role Phone Alex Davis MD Primary Care Provider [phone] Reason for Visit * Reason Onset Date Comments Med Refill 09/11/2022 Encounter Details Date Type Department Care Team (Late st Contact Info) Description 09/11/2022 Refill [facility] FAMILY MEDICINE [address] [place] [address] Alex Davis MD [address] [place] [address] Controlled type 2 diabetes mellitus [...] encounter Miscellaneous Notes * Telephone Encounter - Brittny Porras RegSched Rep - 09/11/2022 11:57 AM EDT Caller: Gertrudis Gonzalez Relationship: Self Best call back number: [phone] Requested Prescriptions: Requested Prescriptions Pending Prescriptions Disp Refills Semaglutide,0.25 or 0.5MG/DOS, (Ozempic, 0.25 or 0.5 MG/DOSE,) 2 MG/1.5ML solution pen-injector 3 mL 2 Si.25mg SQ weekly 4 weeks then 0.5mg SQ weekly Pharmacy where request should be sent: [facility] ) - [place], [place] - [address] [facility] [phone] [facility] [phone] FX Last office visit with prescribing clinician: 08/25/2022 Last telemedicine visit with prescribing clinician: Visit date not found Next office visit with prescribing clinician: 11/27/2022 Additional details provided by patient: Does the patient have less than a 3 day supply: [x] Yes [] No Would you like a call back once the refill request has been completed: [] Yes [x] No If the office needs to give you a call back, can they leave a voicemail: [] Yes [x] No Slava Espinoza 09/11/22 11:57 EDT documented in this encounter Plan of Treatment Upcoming Encounters Date Type Department Care Team (Late st Contact Info) Description 03/13/2024 2:45 PM EST Office Visit [facility] CARDIOLOGY [address] [facility] [place] [address] Pj Ace MD [address] [facility] [address] [address] documented as of this encounter Visit Diagnoses Diagnosis 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
--- OUTSIDE RECORDS SUMMARY | 2024-02-20 09:08 | XMS_ITS | Encounter Summary ---
Author Organization [facility] Address [address] [place] [address] Care Team Providers Care Table Games Dealer Name Role Phone Alex Davis MD Primary Care Provider [phone] Reason for Visit * Reason Comments Dizziness Consult * Consultation (Routine) - Closed Specialty Diagnoses / Procedures Referred By Contac t Referred To Contact Cardiology Diagnoses Heart palpitations Alex Davis MD [address] [place] [address] Phone: tel: fax: Pj Ace MD [address] [address] Phone: tel: fax: Referral ID Status Reason Start Date Expiration Date V isits Requested Visits Authorized [id number] Closed Specialty Services Required 09/05/2021 09/05/2022 1 1 Encounter Details Date Type Department Care Team (Late st Contact Info) Description 01/12/2022 9:00 AM EDT Office Visit [facility] CARDIOLOGY [address] [facility] [place] [place] [id number] Pj Ace MD [address] [place] [address] Postural dizziness with presyncope (Primary Dx); Primary hypertension; Mixed hyperlipidemia; Type [...] Sign Reading Time Taken Comments Blood Pressure 138/68 01/12/2022 9:29 AM EDT Pulse 92 01/12/2022 9:29 AM EDT Temperature - - Respiratory Rate - - Oxygen Saturation 94% 01/12/2022 9:29 AM EDT Inhaled Oxygen Concentration - - Weight 83.5 kg (184 lb) 01/12/2022 9:29 AM EDT Height 157.5 cm (5' 2 ) 01/12/2022 9:29 AM EDT Body Mass Index 33.65 01/12/2022 9:29 AM EDT documented in this encounter Progress Notes * Pj Ace MD - 01/12/2022 9:00 AM EDTAssociated Order(s): ECG 12 Lead Post-Procedure Diagnose(s): Postural dizziness with presyncope [facility] Cardiology Consultation H&P Gertrudis Gonzalez [address] [place] [address] [place] [address] VISIT DATE: 01/12/22 PCP: Alex Davis MD [address] [place] [address] [place] [address] 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 Villalba CC: Chief Complaint Patient presents with ??? Dizziness Consult Allergies Allergies Allergen Reactions ??? Iain Inhibitors Cough ??? Amlodipine Diarrhea ??? Beta Adrenergic Blockers Rash ??? Cyclobenzaprine Rash ??? Hydrochlorothiazide Rash ??? Hyzaar [Losartan Potassium-Hctz] Rash ??? Jardiance [Empagliflozin] Rash ??? Latex Rash ??? Losartan Rash ??? Penicillins Rash ??? Pioglitazone Rash ??? Spironolactone Rash Current Medications Current Outpatient Medications: ??? atorvastatin (Lipitor) 40 MG tablet, Take 1 tablet by mouth Every Night., Disp: 90 tablet, Rfl:1 ??? bethanechol (URECHOLINE) 50 MG tablet, Take 1 tablet by mouth 2 (Two) Times a Day., Disp: , Rfl: ??? ciclopirox (LOPROX) 0.77 % gel, , Disp: , Rfl: ??? cyclobenzaprine (FLEXERIL) 10 MG tablet, Take 10 mg by mouth 3 (Three) Times a Day As Needed for Muscle Spasms., Disp: , Rfl: ??? docusate sodium (COLACE) 100 MG capsule, Take 100 mg by mouth 2 (Two) Times a Day., Disp: , Rfl: ??? estradiol (ESTRACE VAGINAL) 0.1 MG/GM vaginal cream, Insert 2 g into the vagina 1 (One) Time Per Week., Disp: 42.5 g, Rfl: 5 ??? ezetimibe (ZETIA) 10 MG tablet, TAKE 1 TABLET DAILY, Disp: 90 tablet, Rfl: 3 ??? furosemide (LASIX) 20 MG tablet, Take 1 tablet by mouth As Needed., Disp: , Rfl: ??? glipizide (Glucotrol) 5 MG tablet, Take 1 tablet by mouth 2 (Two) Times a Day Before Meals. (Patient taking differently: Take 1 tablet by mouth Daily.), Disp: 60 tablet, Rfl: 3 ??? Insulin Glargine (LANTUS SOLOSTAR) 100 UNIT/ML injection pen, Inject 60 Units under the skin into the appropriate area as directed Daily., Disp: 30 pen, Rfl: 1 ??? Insulin Lispro, 1 Unit Dial, (HumaLOG KwikPen) 100 UNIT/ML solution pen- injector, Take 16 unitsbefore meals, correction 2:50 >150, MDD 60U, Disp: 54 mL, Rfl: 1 ??? Insulin Pen Needle 32G X 4 MM misc, Use daily with insulin up to 6 times per day, Disp: 600 each, Rfl: 3 ??? losartan (COZAAR) 100 MG tablet, Take 1 tablet by mouth Daily., Disp: 90 tablet, Rfl: 1 ??? meloxicam (MOBIC) 7.5 MG tablet, Take 1 tablet by mouth Daily., Disp: 90 tablet, Rfl: 1 ??? metoclopramide (REGLAN) 5 MG tablet, Take 5 mg by mouth 3 (Three) Times a Day., Disp: , Rfl: ??? NIFEdipine CC (ADALAT CC) 60 MG 24 hr tablet, , Disp: , Rfl: ??? rOPINIRole (REQUIP) 1 MG tablet, TAKE 1 TABLET EVERY NIGHT, 60 MINUTES BEFORE BEDTIME, Disp: 90tablet, Rfl: 3 ??? SITagliptin-metFORMIN HCl ER (Janumet XR) 100-1000 MG tablet, Take 1 tablet by mouth Daily., Disp: 90 tablet, Rfl: 1 ??? topiramate (TOPAMAX) 50 MG tablet, Take 1 tablet by mouth Daily As Needed (migraine)., Disp: 90tablet, Rfl: 3 ??? traMADol (ULTRAM) 50 MG tablet, Take 1 tablet by mouth Every 8 (Eight) Hours As Needed for Moderate Pain ., Disp: 90 tablet, Rfl: 2 ??? traZODone (DESYREL) 50 MG tablet, Take 1 to 2 tabs po hs prn, Disp: 180 tablet, Rfl: 3 History of Present Illness HPI Gertrudis Gonzalez is a 66 y.o. year old female with the above mentioned PMH who presents for consult from Alex Davis MD for evaluation of cardiac disease. She had been followed in [place] with cardiology until this year. She states that she has had chronic dizzy spells that may have been worsened this year. She has adjusted medications to help control her diabetes but still not ideal. She has recently obtained a Dexcom monitor with tighter observation of her blood sugar levels. Been followed in [place] for diabetic gastroparesis and has been on Reglan for some time. She isnoticing some tremor has discussed with her most recent physical security specialist about discontinuing the medication She does activities as tolerated states her back and hip issues are primary limitation. Her husbanddoes most of their housework she states ROS Review of Systems Constitutional: Negative for chills, fever, malaise/fatigue, night sweats, weight gain and weight loss. HENT: Negative for hearing loss and nosebleeds. Eyes: Negative for blurred vision, vision loss in left eye, vision loss in right eye, visual disturbance and visual halos. Cardiovascular: Positive for dyspnea on exertion. Negative for chest pain, claudication, cyanosis, irregular heartbeat, leg swelling, near-syncope, orthopnea, palpitations, paroxysmal nocturnal dyspnea and syncope. Respiratory: Negative for cough, hemoptysis, shortness of breath, snoring and wheezing. Endocrine: Negative for cold intolerance, heat intolerance, polydipsia, polyphagia and polyuria. Hematologic/Lymphatic: Negative for adenopathy and bleeding problem. Does not bruise/bleed easily. Skin: Negative for dry skin, poor wound healing and rash. Musculoskeletal: Negative for falls, joint pain, joint swelling, muscle cramps, muscle weakness, myalgias and neck pain. Gastrointestinal: Negative for bloating, abdominal pain, change in bowel habit, bowel incontinence,constipation, diarrhea, dysphagia, excessive appetite, heartburn, hematemesis, hematochezia, jaundice, melena, nausea and vomiting. Genitourinary: Negative for bladder incontinence, dysuria, flank pain, hematuria, hesitancy and nocturia. Neurological: Positive for light-headedness. Negative for aphonia, excessive daytime sleepiness, dizziness, focal weakness, headaches, loss of balance, seizures, sensory change, tremors, vertigo and weakness. Psychiatric/Behavioral: Negative for altered mental status, depression, memory loss, substance abuse and suicidal ideas. The patient is not nervous/anxious. SOCIAL HX Social History Socioeconomic History ??? Marital status: Tobacco Use ??? Smoking status: Never ??? Smokeless tobacco: Never Vaping Use ??? Vaping Use: Never used Substance and Sexual Activity ??? Alcohol use: No ??? Drug use: No ??? Sexual activity: Yes Partners: Male Comment: FAMILY HX Family History Problem Relation Age of Onset ??? Kidney disease Mother ??? Hypertension Mother ??? Peripheral vascular disease Mother ??? Ulcers Mother ??? Kidney failure Mother ??? Lung disease Father ??? Kidney failure Maternal Grandmother ??? Diabetes Other type 2 ??? Colon cancer Neg Hx ??? Breast cancer Neg Hx ??? Ovarian cancer Neg Hx Vitals: 01/12/22 0929 BP: 138/68 BP Location: Left arm Patient Position: Sitting Pulse: 92 SpO2: 94% Weight: 83.5 kg (184 lb) Height: 157.5 cm (62 ) Body mass index is 33.65 kg/m??. PHYSICAL EXAMINATION: Constitutional: Appearance: Healthy appearance. [...] to person, place and time. Diagnostic Data: ECG 12 Lead Date/Time: 01/12/2022 9:58 AM Performed by: Pj Ace MD Authorized by: Pj Ace MD Rhythm: sinus rhythm BPM: 92 Clinical impression: non-specific ECG Lab Results Component Value Date CHLPL 197 11/09/2021 TRIG 169 (H) 11/09/2021 HDL 50 11/09/2021 Lab Results Component Value Date GLUCOSE 145 (H) 11/09/2021 BUN 15 11/09/2021 CREATININE 0.72 11/09/2021 NA 140 11/09/2021 K 4.6 11/09/2021 CL 101 11/09/2021 CO2 25.9 11/09/2021 Lab Results Component Value Date HGBA1C 7.80 (H) 11/09/2021 Lab Results Component Value Date WBC 7.50 11/09/2021 HGB 15.0 11/09/2021 HCT 46.5 11/09/2021 PLT 257 11/09/2021 ASSESSMENT: Diagnosis Plan 1. Postural dizziness with presyncope 2. Primary hypertension 3. Mixed hyperlipidemia 4. Type 2 diabetes mellitus with hyperglycemia, without long-term current use of insulin (HCC) PLAN: Postural dizziness in the setting of uncontrolled diabetes and longstanding diabetic complications including gastroparesis. Appears to be an element of autonomic neuropathy including gastroparesis and chronic constipation- on concomitant trazodone and Reglan have recommended attempt to consolidate m edications. I have provided her a [facility] handout regarding autonomic neuropathy and exercises to assist with such Hypertension controlled currently losartan. Recommended utmost attempts to wean and discontinue nonsteroidal anti-inflammatory Mixed dyslipidemia controlled on statin therapy Diabetes poorly controlled with recent transition of medication and addition of Dexcom device Alex Davis MD, thank you for referring Ms. Gonzalez for evaluation. I have forwarded my electronically generated recommendations to you for review. Please do not hesitate to call with any questions. Pj Ace MD, FACC documented in this encounter Plan of Treatment Upcoming Encounters Date Type Department Care Team (Late st Contact Info) Description 03/13/2024 2:45 PM EST Office Visit [facility] C[facility]IOLOGY [address] [facility] [place] [address] Pj Ace MD [address] [facility] [address] [address] documented as of this encounter Procedures Procedure Name Priority Date/Time Associated Diagnosis Comments ECG 12-LEAD Routine 01/12/2022 Postural dizziness with presyncope documented in this encounter Results * ECG 12-LEAD (01/12/2022) Narrative 01/12/2022 Pj Ace MD ? 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 Villalba CC: Chief Complaint Patient presents with ? ? Dizziness Consult Allergies Allergies Allergen Reactions ? ? Iain Inhibitors Cough ? ? Amlodipine Diarrhea ? ? Beta Adrenergic Blockers Rash ? ? Cyclobenzaprine Rash ? ? Hydrochlorothiazide Rash ? ? Hyzaar [Losartan Potassium-Hctz] Rash ? ? Jardiance [Empagliflozin] Rash ? ? Latex Rash ? ? Losartan Rash ? ? Penicillins Rash ? ? Pioglitazone Rash ? ? Spironolactone Rash Current Medications Current Outpatient Medications: ? ? atorvastatin (Lipitor) 40 MG tablet, Take 1 tablet by mouth EveryNight., Disp: 90 tablet, Rfl: 1 ? ? bethanechol (URECHOLINE) 50 MG tablet, Take 1 tablet by mouth 2 (Two)Times a Day., Disp: , Rfl: ? ? ciclopirox (LOPROX) 0.77 % gel, , Disp: , Rfl: ? ? cyclobenzaprine (FLEXERIL) 10 MG tablet, Take 10 mg by mouth 3 (Three)Times a Day As Needed for Muscle Spasms., Disp: , Rfl: ? ? docusate sodium (COLACE) 100 MG capsule, Take 100 mg by mouth 2 (Two)Times a Day., Disp: , Rfl: ? ? estradiol (ESTRACE VAGINAL) 0.1 MG/GM vaginal cream, Insert 2 g intothe vagina 1 (One) Time Per Week., Disp: 42.5 g, Rfl: 5 ? ? ezetimibe (ZETIA) 10 MG tablet, TAKE 1 TABLET DAILY, Disp: 90 tablet,Rfl: 3 ? ? furosemide (LASIX) 20 MG tablet, Take 1 tablet by mouth As Needed.,Disp: , Rfl: ? ? glipizide (Glucotrol) 5 MG tablet, Take 1 tablet by mouth 2 (Two) Timesa Day Before Meals. (Patient taking differently: Take 1 tablet by mouthDaily.), Disp: 60 tablet, Rfl: 3 ? ? Insulin Glargine (LANTUS SOLOSTAR) 100 UNIT/ML injection pen, Inject 60Units under the skin into the appropriate area as directed Daily., Disp:30 pen, Rfl: 1 ? ? Insulin Lispro, 1 Unit Dial, (HumaLOG KwikPen) 100 UNIT/ML solutionpen- injector, Take 16 units before meals, correction 2:50 >150, MDD 60U,Disp: 54 mL, Rfl: 1 ? ? Insulin Pen Needle 32G X 4 MM misc, Use daily with insulin up to 6times per day, Disp: 600 each, Rfl: 3 ? ? losartan (COZAAR) 100 MG tablet, Take 1 tablet by mouth Daily., Disp:90 tablet, Rfl: 1 ? ? meloxicam (MOBIC) 7.5 MG tablet, Take 1 tablet by mouth Daily., Disp:90 tablet, Rfl: 1 ? ? metoclopramide (REGLAN) 5 MG tablet, Take 5 mg by mouth 3 (Three) Timesa Day., Disp: , Rfl: ? ? NIFEdipine CC (ADALAT CC) 60 MG 24 hr tablet, , Disp: , Rfl: ? ? rOPINIRole (REQUIP) 1 MG tablet, TAKE 1 TABLET EVERY NIGHT, 60 MINUTESBEFORE BEDTIME, Disp: 90 tablet, Rfl: 3 ? ? SITagliptin-metFORMIN HCl ER (Janumet XR) 100-1000 MG tablet, Take 1tablet by mouth Daily., Disp: 90 tablet, Rfl: 1 ? ? topiramate (TOPAMAX) 50 MG tablet, Take 1 tablet by mouth Daily AsNeeded (migraine)., Disp: 90 tablet, Rfl: 3 ? ? traMADol (ULTRAM) 50 MG tablet, Take 1 tablet by mouth Every 8 (Eight)Hours As Needed for Moderate Pain ., Disp: 90 tablet, Rfl: 2 ? ? traZODone (DESYREL) 50 MG tablet, Take 1 to 2 tabs po hs prn, Disp: 180tablet, Rfl: 3 History of Present Illness HPI Gertrudis Gonzalez is a 66 y.o. year old female with the above mentioned PMHwho presents for consult from Alex Davis MD for evaluation of cardiacdisease. She had been followed in [place] with cardiology until this year. Shestates that she has had chronic dizzy spells that may have been worsenedthis year. She has adjusted medications to help control her diabetes butstill not ideal. She has recently obtained a Dexcom monitor with tighterobservation of her blood sugar levels. Been followed in [place] for diabetic gastroparesis and has been onReglan for some time. She is noticing some tremor has discussed withher most recent physical security specialist about discontinuing the medication She does activities as tolerated states her back and hip issues areprimary limitation. Her does most of their housework she states ROS Review of Systems Constitutional: Negative for chills, fever, malaise/fatigue, night sweats,weight gain and weight loss. HENT: Negative for hearing loss and nosebleeds. Eyes: Negative for blurred vision, vision loss in left eye, vision loss inright eye, visual disturbance and visual halos. Cardiovascular: Positive for dyspnea on exertion. Negative for chest pain,claudication, cyanosis, irregular heartbeat, leg swelling, near-syncope,orthopnea, palpitations, paroxysmal nocturnal dyspnea and syncope. Respiratory: Negative for cough, hemoptysis, shortness of breath, snoringand wheezing. Endocrine: Negative for cold intolerance, heat intolerance, polydipsia,polyphagia and polyuria. Hematologic/Lymphatic: Negative for adenopathy and bleeding problem. Doesnot bruise/bleed easily. Skin: Negative for dry skin, poor wound healing and rash. Musculoskeletal: Negative for falls, joint pain, joint swelling, musclecramps, muscle weakness, myalgias and neck pain. Gastrointestinal: Negative for bloating, abdominal pain, change in bowelhabit, bowel incontinence, constipation, diarrhea, dysphagia, excessiveappetite, heartburn, hematemesis, hematochezia, jaundice, melena, nauseaand vomiting. Genitourinary: Negative for bladder incontinence, dysuria, flank pain,hematuria, hesitancy and nocturia. Neurological: Positive for light-headedness. Negative for aphonia,excessive daytime sleepiness, dizziness, focal weakness, headaches, lossof balance, seizures, sensory change, tremors, vertigo and weakness. Psychiatric/Behavioral: Negative for altered mental status, depression,memory loss, substance abuse and suicidal ideas. The patient is notnervous/anxious. SOCIAL HX Social History Socioeconomic History ? ? Marital status: Tobacco Use ? ? Smoking status: Never ? ? Smokeless tobacco: Never Vaping Use ? ? Vaping Use: Never used Substance and Sexual Activity ? ? Alcohol use: No ? ? Drug use: No ? ? Sexual activity: Yes Partners: Male Comment: FAMILY HX Family History Problem Relation Age of Onset ? ? Kidney disease Mother ? ? Hypertension Mother ? ? Peripheral vascular disease Mother ? ? Ulcers Mother ? ? Kidney failure Mother ? ? Lung disease Father ? ? Kidney failure Maternal Grandmother ? ? Diabetes Other type 2 ? ? Colon cancer Neg Hx ? ? Breast cancer Neg Hx ? ? Ovarian cancer Neg Hx Vitals: 01/12/22 0929 BP: 138/68 BP Location: Left arm Patient Position: Sitting Pulse: 92 SpO2: 94% Weight: 83.5 kg (184 lb) Height: 157.5 cm (62 ) Body mass index is 33.65 kg/m??. PHYSICAL EXAMINATION: Constitutional: Appearance: Healthy appearance. Not in distress. Neck: Vascular: No JVR. JVD normal. Pulmonary: Effort: Pulmonary effort is normal. Breath sounds: Normal breath sounds. No wheezing. No rhonchi. No rales. Chest: Chest wall: Not tender to palpatation. Cardiovascular: PMI at left midclavicular line. Normal rate. Regular rhythm. Normal S1.Normal S2. Murmurs: There is no murmur. No [...] to person, place and time. Diagnostic Data: ECG 12 Lead Date/Time: 01/12/2022 9:58 AM Performed by: Pj Ace MD Authorized by: Pj Ace MD Rhythm: sinus rhythm BPM: 92 Clinical impression: non-specific ECG Lab Results Component Value Date CHLPL 197 11/09/2021 TRIG 169 (H) 11/09/2021 HDL 50 11/09/2021 Lab Results Component Value Date GLUCOSE 145 (H) 11/09/2021 BUN 15 11/09/2021 CREATININE 0.72 11/09/2021 NA 140 11/09/2021 K 4.6 11/09/2021 CL 101 11/09/2021 CO2 25.9 11/09/2021 Lab Results Component Value Date HGBA1C 7.80 (H) 11/09/2021 Lab Results Component Value Date WBC 7.50 11/09/2021 HGB 15.0 11/09/2021 HCT 46.5 11/09/2021 PLT 257 11/09/2021 ASSESSMENT: Diagnosis Plan 1. Postural dizziness with presyncope 2. Primary hypertension 3. Mixed hyperlipidemia 4. Type 2 diabetes mellitus with hyperglycemia, without long-term currentuse of insulin (HCC) PLAN: Postural dizziness in the setting of uncontrolled diabetes andlongstanding diabetic complications including gastroparesis. Appears marisol an element of autonomic neuropathy including gastroparesis and chronicconstipation- on concomitant trazodone and Reglan have recommended attemptto consolidate medications. I have provided her a [facility] handoutregarding autonomic neuropathy and exercises to assist with such Hypertension controlled currently losartan. Recommended utmost attemptsto wean and discontinue nonsteroidal anti-inflammatory Mixed dyslipidemia controlled on statin therapy Diabetes poorly controlled with recent transition of medication andaddition of Dexcom device Alex Davis MD, thank you for referring Ms. Gonzalez for evaluation. I have forwarded my electronically generated recommendations to you forreview. Please do not hesitate to call with any questions. Pj Ace MD, [facility] us Pj Ace MD ECG ORDERABLES Final Result documented in this encounter Visit Diagnoses Diagnosis Postural dizziness with presyncope- Primary Primary hypertension Unspecified essential hypertension Mixed hyperlipidemia Type 2 diabetes mellitus with hyperglycemia, without long-term current use of insulin documented in this encounter Care Teams Table Games Dealer Relationship Specialty Start Date End Date Alex Davis MD [address] [place] [address] PCP - General Family Medicine 09/05/21 documented as of this encounter
--- OUTSIDE RECORDS SUMMARY | 2024-02-20 09:08 | XMS_ITS | Encounter Summary ---
Author Organization [facility] Address [address] [place] [address] Care Team Providers Care Encyclopedia Research Worker Name Role Phone Alex Davis MD Primary Care Provider [phone] Reason for Visit * Reason Comments Med Refill Encounter Details Date Type Department Care Team (Late Contact Info) Description 10/26/2022 Refill [facility] FAMILY MEDICINE [address] [place] [address] Alex Davis MD [address] [place] [address] Postlaminectomy syndrome of lumbar region; [...] Description 03/13/2024 2:45 PM EST Office Visit [facility] CARDIOLOGY [address] [address] Pj Ace MD [address] [facility] [address] [place] [address] documented as of this encounter Visit Diagnoses Diagnosis Postlaminectomy syndrome of lumbar region Postlaminectomy syndrome, lumbar region Herniated lumbar intervertebral disc Displacement of lumbar intervertebral disc without myelopathy documented in this encounter Care Teams Encyclopedia Research Worker Relationship Specialty Start Date End Date Alex Davis MD [address] [place] [address] PCP - General Family Medicine 09/05/21 documented as of this encounter
--- OUTSIDE RECORDS SUMMARY | 2024-02-20 09:08 | XMS_ITS | Encounter Summary ---
Author Organization [facility] Address [address] [place] [address] Care Team Providers Care Candy Packer Name Role Phone Alex Davis MD Primary Care Provider [phone] Reason for Visit * Reason Onset Date Comments Med Refill 04/20/2022 Encounter Details Date Type Department Care Team (Late st Contact Info) Description 04/20/2022 Refill [facility] [address] [place] [address] Alex Davis MD [address] [place] [address] Postlaminectomy syndrome of lumbar region; Herniated lumbar intervertebral disc; Primary insomnia Social History Tobacco Use Types [...] Encounter - Brittny Porras RegSched Rep - 04/20/2022 2:51 PM EST Caller: Gertrudis Gonzalez Relationship: Self Best call back number: [phone] Requested Prescriptions: Requested Prescriptions Pending Prescriptions Disp Refills ??? traMADol (ULTRAM) 50 MG tablet 90 tablet 2 Sig: Take 1 tablet by mouth Every 8 (Eight) Hours As Needed for Moderate Pain. ??? traZODone (DESYREL) 50 MG tablet 180 tablet 3 Sig: Take 1 to 2 tabs po hs prn Pharmacy where request should be sent: [facility] - [place], [place] - [address] - [phone] [facility] [phone] FX Additional details provided by patient: Does the patient have less than a 3 day supply: [x] Yes [x] No Would you like a call back once the refill request has been completed: [x] Yes [] No If the office needs to give you a call back, can they leave a voicemail: [x] Yes [] No Slava Espinoza Rep 04/20/22 14:52 EST documented in this encounter Plan of Treatment Upcoming Encounters Date Type Department Care Team (Late st Contact Info) Description 03/13/2024 2:45 PM EST Office Visit [facility] [address] [place] [address] Pj Ace MD [address] [facility] [address] [address] documented as of this encounter Visit Diagnoses Diagnosis Postlaminectomy syndrome of lumbar region Postlaminectomy syndrome, lumbar region Herniated lumbar intervertebral disc Displacement of lumbar intervertebral disc without myelopathy Primary insomnia Persistent disorder of initiating or maintaining sleep documented in this encounter Care Teams Candy Packer Relationship Specialty Start Date End Date Alex Davis MD [address] [place] [address] PCP - General Family Medicine 09/05/21 documented as of this encounter
--- OUTSIDE RECORDS SUMMARY | 2024-02-20 09:08 | XMS_ITS | Encounter Summary ---
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, with long-term current use of insulin (Primary Dx); Essential hypertension; Bronchitis Social History Tobacco Use Types Packs/Day Years [...] Sign Reading Time Taken Comments Blood Pressure 142/82 08/25/2022 12:45 PM EDT Pulse 89 08/25/2022 12:45 PM EDT Temperature 36.6 ??C (97.8 ??F) 08/25/2022 12:45 PM E DT Respiratory Rate 18 08/25/2022 12:45 PM EDT Oxygen Saturation 98% 08/25/2022 12:45 PM EDT Inhaled Oxygen Concentration - - Weight 84.1 kg (185 lb 6.4 oz) 08/25/2022 12:45 PM EDT Height 157.5 cm (5' 2 ) 08/25/2022 12:45 PM EDT Body Mass Index 33.91 08/25/2022 12:45 PM EDT documented in this encounter Progress Notes * Seun Noyola MA - 08/25/2022 12:45 PM EDTAddended by: SEUN NOYOLA on: 08/25/2022 02:51 PM Modules accepted: Orders * Alex Davis MD - 08/25/2022 12:45 PM EDT Subjective Gertrudis Gonzalez is a 66 y.o. female. History of Present Illness Diabetes Mellitus Type II, Follow-up: Gertrudis Gonzalez is a 66 y.o. female who is here for follow-up of Type 2 diabetes mellitus. Current symptoms/problems include none and have been stable. Patient is adherent with medications. Known diabetic complications: none Cardiovascular risk factors: diabetes mellitus, dyslipidemia, hypertension and obesity (BMI >= 30 kg/m2) Current diabetic medications include janumet and lantus 68 Current monitoring regimen: home blood tests - multiple times daily Home blood sugar records: fasting range: [...] Patient does not check her blood pressure. She} is compliant with meds. Gertrudis Gonzalez returns today for follow up of Hyperlipidemia Gertrudis indicates her exercise level as not at all. Diet: eating the same Patient is compliant with medications Any side effects to medications: chest pain No myalgia No memory change No Pt is not due for labs The following portions of the patient's history were reviewed and updated as appropriate: allergies, current medications, past family history, past medical history, past social history, past surgicalhistory and problem list. Review of Systems Objective Physical Exam Vitals and nursing note reviewed. Constitutional: General: She is not in acute distress. Appearance: Normal appearance. She is well-developed. Cardiovascular: Rate and Rhythm: Normal rate and regular rhythm. Heart sounds: Normal heart sounds. Pulmonary: Effort: Pulmonary effort is normal. Breath sounds: Rhonchi present. Neurological: Mental Status: She is alert and oriented to person, place, and time. Psychiatric: Mood and Affect: Mood normal. Behavior: Behavior normal. Thought Content: Thought content normal. Judgment: Judgment normal. Assessment & Plan Diagnoses and all orders for this visit: 1. 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 Dispense: 60 tablet; Refill: 3 - CBC & Differential - Comprehensive Metabolic Panel - Hemoglobin A1c - POCT microalbumin 2. Essential hypertension 3. Bronchitis - azithromycin (Zithromax) 250 MG tablet; Take 2 tablets the first day, then 1 tablet daily for 4 days. Dispense: 6 tablet; Refill: 0 stop janumet and use metformin and ozempic in addition to insulin. Pros/cons/SE discussed with pt and she will watch and call with issues. Recheck in 3 months continue losartan for BP. It is high today but weight loss from ozempic would help this! [facility] 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, with long-term current use of insulin CBC AND DIFFERENTIAL Routine 08/25/2022 1:03 PM EDT 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 Creatinine, Urine 200 [facility] Lot Number [id number] [facility] Expiration Date [facility] Urine 08/25/2022 2:50 PM EDT us Alex Davis MD POINT OF CARE TEST ORDERABLES F inal Result [facility]
[address] [place] [address], * (ABNORMAL) Hemoglobin A1c (08/25/2022 1:03 PM EDT) Hemoglobin A1C 8.0(H) 4.8 - 5.6 % [facility] Comment: ? Prediabetes: 5.7 - 6.4 ? Diabetes: >6.4 ? Glycemic control for adults with diabetes: <7.0 Blood 08/25/2022 1:03 PM EDT 08/25/2022 Narrative [facility] - 08/26/2022 5:08 AM EDT Performed at: ??01 - [facility] [address] [place], [place] ??[id number] Furnace Stock Inspector: Malik Hall PhD, Phone: ??[phone] Patient Fasting: ??Y us Alex Davis MD LAB BLOOD ORDERABLES Final Resu lt [facility] [address] [place] [address], [facility] [address] [place] [address], * (ABNORMAL) Comprehensive Metabolic Panel (08/25/2022 1:03 PM EDT) Glucose 143(H) 70 - 99 mg/dL [facility] BUN 18 8 - 27 mg/dL [facility] Creatinine 0.59 0.57 - 1.00 mg/dL [facility] EGFR Result 100 >59 mL/min/1.7 3 [facility] BUN/Creatinine Ratio 31(H) 12 - 28 [facility] Sodium 139 134 - 144 mmol/L [facility] Potassium 4.2 3.5 - 5.2 mmol/L [facility] Chloride 98 96 - 106 mmol/L [facility] Total CO2 28 20 - 29 mmol/L [facility] Calcium 10.1 8.7 - 10.3 mg/dL [facility] Total Protein 7.3 6.0 - 8.5 g/dL [facility] Albumin 4.7 3.8 - 4.8 g/dL [facility] Globulin 2.6 1.5 - 4.5 g/dL [facility] A/G Ratio 1.8 1.2 - 2.2 [facility] Total Bilirubin 0.4 0.0 - 1.2 mg/dL [facility] Alkaline Phosphatase 144(H) 44 - 121 IU/L [facility] AST (SGOT) 57(H) 0 - 40 IU/L [facility] ALT (SGPT) 73(H) 0 - 32 IU/L [facility] Blood 08/25/2022 1:03 PM EDT 08/25/2022 Narrative [facility] ([facility]) - 08/26/2022 5:08 AM EDT Performed at: ??01 - [address] ??[id number] Furnace Stock Inspector: Malik Hall PhD, Phone: ??[phone] Patient Fasting: ??Y Alex Davis MD LAB BLOOD ORDERABLES Final Resu lt [facility] (AMBULATORY) [address] [place] [address], [facility] [address] [place] [address], * (ABNORMAL) CBC & Differential (08/25/2022 1:03 PM EDT) WBC 7.0 3.4 - 10.8 x10E3/uL [facility] RBC 5.30(H) 3.77 - 5.28 x10E6/uL [facility] Hemoglobin 15.3 11.1 - 15.9 g/dL [facility] Hematocrit 45.2 34.0 - 46.6 % [facility] MCV 85 79 - 97 fL [facility] MCH 28.9 26.6 - 33.0 pg [facility] MCHC 33.8 31.5 - 35.7 g/dL [facility] RDW 12.7 11.7 - 15.4 % [facility] Platelets 275 150 - 450 x10E3/uL [facility] Neutrophil Rel % 64 Not Estab. % [facility] Lymphocyte Rel % 27 Not Estab. % [facility] Monocyte Rel % 6 Not Estab. % [facility] Eosinophil Rel % 2 Not Estab. % [facility] Basophil Rel % 1 Not Estab. % [facility] Neutrophils Absolute 4.4 1.4 - 7.0 x10E3/uL [facility] Lymphocytes Absolute 1.9 0.7 - 3.1 x10E3/uL [facility] Monocytes Absolute 0.5 0.1 - 0.9 x10E3/uL [facility] Eosinophils Absolute 0.2 0.0 - 0.4 x10E3/uL [facility] Basophils Absolute 0.1 0.0 - 0.2 x10E3/uL [facility] Immature Granulocyte Rel % 0 Not Estab. 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
--- OUTSIDE RECORDS SUMMARY | 2024-02-20 09:08 | XMS_ITS | Encounter Summary ---
[facility] Address [address] [place] [address] Care Team Providers Care Energy Director Name Role Phone Alex Davis MD Primary Care Provider [phone] Reason for Visit * Reason Comments Medicare Wellness-subsequent Diabetes Encounter Details Date Type Department Care Team (Latest Contact Info) Description 02/17/2022 11:00 AM EST Office Visit [facility] [address] [facility] [place] [address] Alex Davis MD [address] [facility] [place] [address] Medicare annual wellness visit, subsequent (Primary Dx); 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, with long-term current use of insulin; Mixed hyperlipidemia Social History Tobacco Use Types Packs/Day Years [...] Sign Reading Time Taken Comments Blood Pressure 140/70 02/17/2022 10:46 AM EST Pulse 110 02/17/2022 10:46 AM EST Temperature 36.4 ??C (97.5 ??F) 02/17/2022 10:[address] Respiratory Rate 18 02/17/2022 10:46 AM EST Oxygen Saturation - - Inhaled Oxygen Concentration - - Weight 83.5 kg (184 lb) 02/17/2022 10:46 AM EST Height 157.5 cm (5' 2 ) 02/17/2022 10:46 AM EST Body Mass Index 33.65 02/17/2022 10:46 AM EST documented in this encounter Progress Notes * Alex Davis MD - 02/17/2022 11:00 AM EST The ABCs of the Annual Wellness Visit Subsequent Medicare Wellness Visit Chief Complaint Patient presents with ??? Medicare Wellness-subsequent ??? Diabetes Subjective History of Present Illness: Gertrudis Gonzalez is a 66 y.o. female who presents for a Subsequent Medicare Wellness Visit. The following portions of the patient's history were reviewed and updated as appropriate: allergies, current medications, past family history, past medical history, past social history, past surgical history and problem list. Diabetes Mellitus Type II, Follow-up: Gertrudis Gonzalez is a 66 y.o. female who is here for follow-up of Type 2 diabetes mellitus. Current symptoms/problems include none and have been stable. Patient is adherent with medications. Known diabetic complications: none Cardiovascular risk factors: diabetes mellitus, dyslipidemia, hypertension and obesity (BMI >= 30 kg/m2) Current diabetic medications include lantus 60 units and janumet. Current monitoring regimen: home blood tests - multiple times daily Home blood sugar records: fasting range: doing better Any episodes of hypoglycemia? no Eye exam current (within one year): yes She is on JORGITO inhibitor or angiotensin II receptor fern. Patient is on a statin. Compared to one year ago, the patient feels her physical health is better. Compared to one year ago, the patient feels her mental health is better. Recent Hospitalizations: She was not admitted to the hospital during the last year. Current Medical Providers: Patient Care Team: Alex Davis MD as PCP - General (Family Medicine) Bebeto Adams MD as Consulting Physician (Pain Medicine) Damien Berg MD as Consulting Physician (Neurosurgery) Leidy Robertson MD as Consulting Physician (Internal Medicine) Guero Lunsford PA-C as Physician Industrial Machine Operator (Physician Industrial Machine Operator) Slime Hammer APRN as Nurse Practitioner (Gastroenterology) Roc Tracey PA-C as Physician Industrial Machine Operator (Family Medicine) Matty Lackey MD as Consulting Physician (Gastroenterology) Pj Ace MD as Consulting Physician (Cardiology) Outpatient Medications Prior to Visit Medication Sig Dispense Refill ??? atorvastatin (Lipitor) 40 MG tablet Take 1 tablet by mouth Every Night. 90 tablet 1 ??? bethanechol (URECHOLINE) 50 MG tablet Take 1 tablet by mouth 2 (Two) Times a Day. ??? docusate sodium (COLACE) 100 MG capsule Take 100 mg by mouth 2 (Two) Times a Day. ??? estradiol (ESTRACE VAGINAL) 0.1 MG/GM vaginal cream Insert 2 g into the vagina 1 (One) Time PerWeek. 42.5 g 5 ??? ezetimibe (ZETIA) 10 MG tablet TAKE 1 TABLET DAILY 90 tablet 3 ??? furosemide (LASIX) 20 MG tablet Take 1 tablet by mouth As Needed. ??? Insulin Lispro, 1 Unit Dial, (HumaLOG KwikPen) 100 UNIT/ML solution pen- injector Take 16 units before meals, correction 2:50 >150, MDD 60U 54 mL 1 ??? Insulin Pen Needle 32G X 4 MM misc Use daily with insulin up to 6 times per day 600 each 3 ??? losartan (COZAAR) 100 MG tablet Take 1 tablet by mouth Daily. 90 tablet 1 ??? meloxicam (MOBIC) 7.5 MG tablet Take 1 tablet by mouth Daily. 90 tablet 1 ??? metoclopramide (REGLAN) 5 MG tablet Take 5 mg by mouth 3 (Three) Times a Day. ??? NIFEdipine CC (ADALAT CC) 60 MG 24 hr tablet ??? rOPINIRole (REQUIP) 1 MG tablet TAKE 1 TABLET EVERY NIGHT, 60 MINUTES BEFORE BEDTIME 90 tablet 3 ??? topiramate (TOPAMAX) 50 MG tablet Take 1 tablet by mouth Daily As Needed (migraine). 90 tablet 3 ??? traMADol (ULTRAM) 50 MG tablet TAKE 1 TABLET EVERY 8 HOURS NEEDED FOR MODERATE PAIN 90 tablet 2 ??? traZODone (DESYREL) 50 MG tablet Take 1 to 2 tabs po hs prn 180 tablet 3 ??? ciclopirox (LOPROX) 0.77 % gel ??? cyclobenzaprine (FLEXERIL) 10 MG tablet Take 10 mg by mouth 3 (Three) Times a Day As Needed forMuscle Spasms. ??? glipizide (Glucotrol) 5 MG tablet Take 1 tablet by mouth 2 (Two) Times a Day Before Meals. (Patient taking differently: Take 1 tablet by mouth Daily.) 60 tablet 3 ??? Insulin Glargine (LANTUS SOLOSTAR) 100 UNIT/ML injection pen Inject 60 Units under the skin into the appropriate area as directed Daily. 30 pen 1 ??? SITagliptin-metFORMIN HCl ER (Janumet XR) 100-1000 MG tablet Take 1 tablet by mouth Daily. 90 tablet 1 No facility-administered medications prior to visit. Opioid medication/s are on active medication list. and I have evaluated her active treatment plan and pain score trends (see table). There were no vitals filed for this visit. I have reviewed the chart for potential [...] eyes, with long-term current use of insulin (HCC) ??? Elevated liver enzymes ??? Steatosis of liver ??? Obstructive sleep apnea, adult ??? Encounter for fitting and adjustment of neuropacemaker of spinal cord ??? Migration of spinal cord stimulator (HCC) ??? 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 Mild nonproliferative diabetic retinopathy of both eyes without macular edema associated with type 2 diabetes mellitus (HCC) Advance Care Planning Advance Directive is not on file. ACP discussion was held with the patient during this visit. Patient has an advance directive (not in EMR), copy requested. Review of Systems Constitutional: Negative. Respiratory: Negative. Cardiovascular: Negative. Psychiatric/Behavioral: Negative. Objective Vitals: 02/17/22 1046 BP: 140/70 Pulse: 110 Resp: 18 Temp: 97.5 ??F (36.4 ??C) Weight: 83.5 kg (184 lb) Height: 157.5 cm (62 ) Estimated body mass index is 33.65 kg/m?? as calculated from the following: Height as of this encounter: 157.5 cm (62 ). Weight as of this encounter: 83.5 kg (184 lb). BMI is >= 30 and <35. (Class 1 Obesity). The following options were offered after discussion;: exercise counseling/recommendations and nutrition counseling/recommendations Does the patient have evidence of cognitive impairment? No Physical Exam Vitals and nursing note reviewed. Constitutional: General: She is not in acute distress. Appearance: Normal appearance. She is well-developed. HENT: Head: Normocephalic and atraumatic. Eyes: Extraocular Movements: Extraocular movements intact. Conjunctiva/sclera: Conjunctivae normal. Cardiovascular: Rate and Rhythm: Normal rate and regular rhythm. Heart sounds: Normal heart sounds. Pulmonary: Effort: Pulmonary effort is normal. Breath sounds: Normal breath sounds. Neurological: Mental Status: She is alert and oriented to person, place, and time. Psychiatric: Mood and Affect: Mood normal. Behavior: Behavior normal. Thought Content: Thought content normal. Judgment: Judgment normal. HEALTH RISK ASSESSMENT Smoking Status: Social History Tobacco Use Smoking Status Never Smokeless Tobacco Never Alcohol Consumption: Social History Substance and Sexual Activity Alcohol Use No Fall Risk Screen: STEADI Fall Risk Assessment was completed, and patient is at LOW risk for falls.Assessment completed on:02/17/2022 Depression Screening: PHQ-2/PHQ-9 Depression Screening 02/17/2022 Retired PHQ-9 Total Score - Retired Total Score - Little Interest or Pleasure in Doing Things 0-->not at all Feeling Down, Depressed or Hopeless 0-->not at all PHQ-9: Brief Depression Severity Measure Score 0 Health Habits and Functional and Cognitive Screening: Functional & Cognitive Status 02/17/2022 Do you have difficulty preparing food and [...] Dental Exam Up to date Eye Exam Up to date Exercise (times per week) 0 times per week Current Exercises Include No Regular Exercise Current Exercise Activities Include - Do you need help using the phone? No Are you deaf or do you have serious difficulty hearing? No Do you need help with transportation? No Do you need help shopping? No [...] anger or loneliness in the last month? No Who do you live with? Spouse If [...] Due ??? DXA SCAN Never done ??? ZOSTER VACCINE (1 of 2) Never done ??? INFLUENZA VACCINE 10/31/2021 ??? URINE MICROALBUMIN 04/25/2022 ??? HEMOGLOBIN A1C 05/12/2022 ??? DIABETIC EYE EXAM 06/23/2022 ??? DIABETIC FOOT EXAM 07/26/2022 ??? MAMMOGRAM 09/28/2022 ??? LIPID PANEL 11/09/2022 ??? TDAP/TD VACCINES (2 - Td or Tdap) 05/07/2025 ??? PAP SMEAR Discontinued Assessment & Plan [facility] Preventative Services Quick Reference Risk Factors Identified During Encounter Chronic Pain Depression/Dysphoria Fall Risk-High or Moderate Inactivity/Sedentary Obesity/Overweight The above risks/problems have been discussed with the patient. Follow up actions/plans if indicated are seen below in the Assessment/Plan Section. Pertinent information has been shared with the patient in the After Visit Summary. Diagnoses and all orders for this visit: 1. Medicare annual wellness visit, subsequent (Primary) 2. 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 Disp quant suff Dispense: 30 mL; Refill: 5 - SITagliptin-metFORMIN HCl ER (Janumet XR) 100-1000 MG tablet; Take 1 tablet by mouth Daily. Dispense: 90 tablet; Refill: 1 - CBC & Differential - Comprehensive Metabolic Panel - Hemoglobin A1c 3. Mixed hyperlipidemia - Comprehensive Metabolic Panel - Lipid Panel medicare wellness completed and pt advised of well woman care including diet and exercise. She willwork on this. Will recheck DM and f/u pending labs. Glipizide cuased her to have too many low blood glucose levels so this was stopped. Recheck lipids today and continue statin. Follow Up: Return in about 3 months (around 05/20/2022). An After Visit Summary and PPPS were made available to the patient. documented in this encounter Plan of Treatment Upcoming Encounters Date Type Department Care Team (Late st Contact Info) Description 03/13/2024 2:45 PM EST Office Visit [facility] [address] [facility] [place] [address] Pj Ace MD 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, with long-term current use of insulin LIPID PANEL Routine 02/17/2022 11:02 AM EST Mixed hyperlipidemia COMPREHENSIVE METABOLIC PANEL Routine 02/17/2022 11:02 AM EST 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, with long-term current use of insulin Mixed hyperlipidemia documented in this encounter Results * (ABNORMAL) Lipid Panel (02/17/2022 11:02 AM EST) Pathologist [facility] Total Cholesterol 173 0 - 200 mg/dL [facility] Comment: [...] 160-189 mg/dL Very High ?>189 mg/dL Triglycerides 137 0 - 150 mg/dL [facility] HDL Cholesterol 42 40 - 60 mg/dL [facility] VLDL Cholesterol Bill 24 5 - 40 mg/dL [facility] LDL Chol Calc (NIH) 107(H) 0 - 100 mg/dL [facility] Blood 02/17/2022 11:0 2 AM EST 02/17/2022 Narrative [facility] ([facility]) - 02/18/2022 3:07 AM EST Performed at: ??[address] ??[id number] Statistical Technician: Lane Haile MD, Phone: ??[phone] Patient Fasting: ??Y Alex Davis MD LAB BLOOD ORDERABLES Final Resu lt Performing Organization Address City/[facility]/ZIP Co de Phone Number [facility] (AM[facility]ORY) [address] [place] [address], [facility] [address] [place] [address], * (ABNORMAL) Hemoglobin A1c (02/17/2022 11:02 AM EST) [facility] Hemoglobin A1C 6.90(H) 4.80 - 5.60 % [facility] Comment: Hemoglobin A1C Ranges: Increased Risk for Diabetes ??5.7% to 6.4% Diabetes ? >= 6.5% Diabetic Goal ?< 7.0% Blood 02/17/2022 11:0 2 AM EST 02/17/2022 Narrative [facility] ([facility]) - 02/18/2022 3:07 AM EST Performed at: ??[address] ??[id number] Statistical Technician: Lane Haile MD, Phone: ??[phone] Patient Fasting: ??Y Alex Davis MD LAB BLOOD ORDERABLES Final Resu lt Performing Organization Address City/[facility]/ZIP Co de Phone Number [facility] ([facility]) [address] [place] [address], [facility] [address] [place] [address], [place] [phone] * (ABNORMAL) Comprehensive Metabolic Panel (02/17/2022 11:02 AM EST) Glucose 112(H) 65 - 99 mg/dL [facility] BUN 14 8 - 23 mg/dL [facility] Creatinine 0.69 0.57 - 1.00 mg/dL [facility] EGFR Result 96.5 >60.0 mL/min/1. 73 [facility] Comment: National Kidney Foundation and [place] Society of Nephrology (ASN) Task Force recommended calculation based on the Chronic Kidney Disease Epidemiology Collaboration (CKD-EPI) equation refit without adjustment for race. GFR Normal >60 Chronic Kidney Disease <60 Kidney Failure <15 BUN/Creatinine Ratio 20.3 7.0 - 25.0 [facility] Sodium 144 136 - 145 mmol/L [facility] Potassium 4.1 3.5 - 5.2 mmol/L [facility] Chloride 103 98 - 107 mmol/L [facility] Total CO2 29.6(H) 22.0 - 29.0 mmol/L [facility] Calcium 10.2 8.6 - 10.5 mg/dL [facility] Total Protein 7.2 6.0 - 8.5 g/dL [facility] Albumin 4.10 3.50 - 5.20 g/dL [facility] Globulin 3.1 gm/dL [facility] A/G Ratio 1.3 g/dL [facility] Total Bilirubin 0.5 0.0 - 1.2 mg/dL [facility] Alkaline Phosphatase 139(H) 39 - 117 U/L [facility] AST (SGOT) 31 1 - 32 U/L [facility] ALT (SGPT) 53(H) 1 - 33 U/L [facility] Blood 02/17/2022 11:0 2 AM EST 02/17/2022 Narrative [facility] [employer] [facility] (AMBULATORY) - 02/18/2022 3:07 AM EST Performed at: ??[address] ??[id number] Statistical Technician: Lane Haile MD, Phone: ??[phone] Patient Fasting: ??Y us Alex Davis MD LAB BLOOD ORDERABLES Final Resu lt [facility] [employer] [facility] [place] ([facility]) [address] [place] [address], [place] [phone] [facility] [address] [place] [address], * CBC & Differential (02/17/2022 11:02 AM EST) WBC 5.03 3.40 - 10.80 10*3/mm3 [facility] RBC 4.88 3.77 - 5.28 10*6/mm3 [facility] Hemoglobin 14.4 12.0 - 15.9 g/dL [facility] Hematocrit 43.3 34.0 - 46.6 % [facility] MCV 88.7 79.0 - 97.0 fL [facility] MCH 29.5 26.6 - 33.0 pg [facility] MCHC 33.3 31.5 - 35.7 g/dL [facility] RDW 13.0 12.3 - 15.4 % [facility] Platelets 226 140 - 450 10*3/mm3 [facility] Neutrophil Rel % 57.3 42.7 - 76.0 % [facility] Lymphocyte Rel % 30.2 19.6 - 45.3 % [facility] Monocyte Rel % 8.5 5.0 - 12.0 % [facility] Eosinophil Rel % 3.0 0.3 - 6.2 % [facility] Basophil Rel % 0.6 0.0 - 1.5 % [facility] Neutrophils Absolute 2.88 1.70 - 7.00 10*3/mm3 [facility] Lymphocytes Absolute 1.52 0.70 - 3.10 10*3/mm3 [facility] Monocytes Absolute 0.43 0.10 - 0.90 10*3/mm3 [facility] Eosinophils Absolute 0.15 0.00 - 0.40 10*3/mm3 [facility] Basophils Absolute 0.03 0.00 - 0.20 10*3/mm3 [facility] Immature Granulocyte Rel % 0.4 0.0 - 0.5 % [facility] Immature Grans Absolute 0.02 0.00 - 0.05 10*3/mm3 [facility] nRBC 0.0 0.0 - 0.2 /100 WBC [facility] Blood 02/17/2022 11:0 2 AM EST 02/17/2022 Narrative [facility] (AMBULATORY) - 02/18/2022 3:07 AM EST Performed at: ??01 - [facility] [place], [place] ??[id number] Statistical Technician: Lane Haile MD, Phone: ??[phone] Patient Fasting: ??Y us Alex Davis MD LAB BLOOD ORDERABLES Final Resu lt [facility] (AMBULATORY) [address] [place] [address], [facility] [address] [place] [address], documented in this encounter Visit Diagnoses Diagnosis Medicare annual wellness visit, subsequent- Primary 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
--- OUTSIDE RECORDS SUMMARY | 2024-02-20 09:08 | XMS_ITS | Encounter Summary ---
[facility] Address [address] [place] [address] Care Team Providers Care Living Supervisor Name Role Phone Alex Davis MD Primary Care Provider [phone] Reason for Visit * Reason Onset Date Comments Med Refill 09/18/2022 Encounter Details Date Type Department Care Team (Late st Contact Info) Description 09/18/2022 Refill [facility] [address] [place] [address] Alex Davis MD [address] [place] [address] Controlled type 2 diabetes mellitus [...] encounter Miscellaneous Notes * Telephone Encounter - Gisela Santana - 09/19/2022 7:26 AM EDT ALREADY SENT IN * Telephone Encounter - Elisa Centeno RegSched Rep - 09/18/2022 2:15 PM EDT Caller: Gertrudis Gonzalez Relationship: Self Best call back number: [phone] Requested Prescriptions: NIFEdipine CC (ADALAT CC) 60 MG 24 hr tablet Semaglutide,0.25 or 0.5MG/DOS, (Ozempic, 0.25 or 0.5 MG/DOSE,) 2 MG/1.5ML solution pen-injector metFORMIN ER (GLUCOPHAGE-XR) 500 MG 24 hr tablet Pharmacy where request should be sent: [facility] - [facility] [address] [phone] [facility] [phone] Last office visit with prescribing clinician: 08/25/2022 Last telemedicine visit with prescribing clinician: Visit date not found Next office visit with prescribing clinician: 11/27/2022 Additional details provided by patient: PATIENT REQUESTING 90 DAY SUPPLY. Does the patient have less than a 3 day supply: [] Yes [x] No Would you like a call back once the refill request has been completed: [x] Yes [] No If the office needs to give you a call back, can they leave a voicemail: [x] Yes [] No Slava Cast 09/18/22 14:17 EDT documented in this encounter Plan of Treatment Upcoming Encounters Date Type Department Care Team (Late st Contact Info) Description 03/13/2024 2:45 PM EST Office Visit [facility] [address] [place] [address] [address] Pj Ace MD [address] [facility] [address] 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
--- OUTSIDE RECORDS SUMMARY | 2024-02-20 09:08 | XMS_ITS | Encounter Summary ---
Author Organization [facility] Address [address] [place] [address] Care Team Providers Care Liquid Chlorine Operator Name Role Phone Alex Davis MD Primary Care Provider [phone] Reason for Visit * Reason Comments Med Refill Encounter Details Date Type Department Care Team (Late Contact Info) Description 10/07/2022 Refill [facility] [address] [place] [address] Alex Davis MD [address] [place] [address] Social History Tobacco Use Types [...] [facility] [address] [facility] [address] Pj Ace MD [facility] [address] [address] documented as of this encounter Visit Diagnoses Not on filedocumented in this encounter Care Teams Liquid Chlorine Operator Relationship Specialty Start Date End Date Alex Davis MD [address] [place] [address] PCP - General Family Medicine 09/05/21 documented as of this encounter
--- OUTSIDE RECORDS SUMMARY | 2024-02-20 09:08 | XMS_ITS | Encounter Summary ---
[facility] Organization [facility] Address [address] [place] [address] Care Team Providers Care Sweet Dough Mixer Name Role Phone Alex Davis MD Primary Care Provider [phone] Reason for Visit * Reason Onset Date Comments PATIENT CALLBACK 05/15/2022 Encounter Details Date Type Department Care Team (Late st Contact Info) Description 05/15/2022 Telephone [facility] [address] [place] [address] Alex Davis MD [address] [place] [address] PATIENT CALLBACK Social History Tobacco Use Types Packs/Day Years [...] Telephone Encounter - Nancy Das LPN - 05/15/2022 1:46 PM EST Discussed with tanika * Telephone Encounter - Scott Mckeon RegSched Rep - 05/15/2022 1:20 PM EST Caller: TANIKA Relationship: Other Best call back number:[phone] What was the call regarding: [facility] CALLING ABOUT PATIENT RECENT A1C LEVELS FOR THE DIABETES PROGRAM. TANIKA FROM [facility] JUST NEEDS THE LAST 2 A1C LEVELS. Do you require a callback: YES documented in this encounter Plan of Treatment Upcoming Encounters Date Type Department Care Team (Late st Contact Info) Description 03/13/2024 2:45 PM EST Office Visit [facility] [address] [facility] [place] [place] [address] jP Ace MD [address] [facility] [address] [address] documented as of this encounter Visit Diagnoses Not on filedocumented in this encounter Care Teams Sweet Dough Mixer Relationship Specialty Start Date End Date Alex Davis MD [address] [place] [address] PCP - General Family Medicine 09/05/21 documented as of this encounter
--- OUTSIDE RECORDS SUMMARY | 2024-02-20 09:08 | XMS_ITS | Encounter Summary ---
[facility] [address] [place] [address] Care Team Providers Care Spooling Machine Operator Name Role Phone Alex Davis MD Primary Care Provider [phone] Reason for Visit * Reason Onset Date Comments RECORDS 05/11/2022 Encounter Details Date Type Department Care Team (Late st Contact Info) Description 05/11/2022 Telephone [facility]INE [address] [place] [address] Alex Davis MD [address] [place] [address] RECORDS Social History Tobacco Use Types Packs/Day Years [...] Encounter - Nancy Das LPN - 05/15/2022 10:09 AM EST This is an incorrect numb. I have no contact info * Telephone Encounter - Naya Santiago MA - 05/11/2022 4:02 PM EST Phoned # given and it goes to a [employer] message * Telephone Encounter - Jany Lopez - 05/11/2022 3:27 PM EST PHONE CALL FROM [facility]. THEY NEED TO KNOW THE LAST 2 A1C'S. PLEASE CALL [phone] BRAD MAURO TO LEAVE A MESSAGE WITH NAME AND DATE OF documented in this encounter Plan of Treatment Upcoming Encounters Date Type Department Care Team (Late st Contact Info) Description 03/13/2024 2:45 PM EST Office Visit [facility] CARDIOLOGY [address] [facility] [place] [address] Pj Ace MD [address] [facility] [address] [address] documented as of this encounter Visit Diagnoses Not on filedocumented in this encounter Care Teams Spooling Machine Operator Relationship Specialty Start Date End Date Alex Davis MD [address] [place] [address] PCP - General Family Medicine 09/05/21 documented as of this encounter
--- OUTSIDE RECORDS SUMMARY | 2024-02-20 09:08 | XMS_ITS | Encounter Summary ---
[facility] [address] [place] [id number] Care Team Providers Care Locomotive Boilermaker Name Role Phone Alex Davis MD Primary Care Provider [phone] Reason for Visit * Reason Comments Med Refill Encounter Details Date Type Department Care Team (Late Contact Info) Description 12/02/2021 Refill [facility] INTERNAL MEDICINE [address] [place] [address] Ev Augustin, CLOTH PRINTING UTILITY WORKER [address] [place] [address] Gastroesophageal reflux disease without esophagitis Social History [...] Visit [facility] CARDIOLOGY [address] [place] [address] Pj Ace MD [address] [facility] [address] [place] [address] documented as of this encounter Visit Diagnoses Diagnosis Gastroesophageal reflux disease without esophagitis Esophageal reflux documented in this encounter Care Teams Locomotive Boilermaker Relationship Specialty Start Date End Date Alex Davis MD [address] [place] [address] PCP - General Family Medicine 09/05/21 documented as of this encounter
--- OUTSIDE RECORDS SUMMARY | 2024-02-20 09:08 | XMS_ITS | Encounter Summary ---
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, with long-term current use of insulin; Mixed hyperlipidemia; Primary insomnia; Postlaminectomy syndrome of lumbar region; Herniated lumbar intervertebral disc; Essential hypertension; Chronic migraine without aura without status migrainosus, [...] Sign Reading Time Taken Comments Blood Pressure 150/85 11/27/2022 1:46 PM EDT Pulse 92 11/27/2022 1:46 PM EDT Temperature 36.2 ??C (97.1 ??F) 11/27/2022 1:46 PM ED T Respiratory Rate 18 11/27/2022 1:46 PM EDT Oxygen Saturation 96% 11/27/2022 1:46 PM EDT Inhaled Oxygen Concentration - - Weight 83.4 kg (183 lb 12.8 oz) 11/27/2022 1:46 PM EDT Height 157.5 cm (5' 2 ) 11/27/2022 1:46 PM EDT Body Mass Index 33.62 11/27/2022 1:46 PM EDT documented in this encounter Progress Notes * Alex Davis MD - 11/27/2022 2:00 PM EDT Subjective Gertrudis Gonzalez is a 66 y.o. female. History of Present Illness Diabetes Mellitus Type II, Follow-up: Gertrudis Gonzalez is a 66 y.o. female who is here for follow-up of Type 2 diabetes mellitus. Current symptoms/problems include none and have been stable. Patient is adherent with medications. Known diabetic complications: retinopathy Cardiovascular risk factors: diabetes mellitus, dyslipidemia, hypertension, and obesity (BMI >= 30 kg/m2) Current diabetic medications include ozempic 0.5 , lantus, metformin She has been eating less She is on JORGITO inhibitor or angiotensin II receptor fern. Patient is on a statin. She does have constipation On colace as well as Gertrudis Gonzalez is here for follow-up of hypertension of several years duration. She is not exercising and is not adherent to a low-salt diet. Patient does not check her blood pressure. She is compliant with meds. Gertrudis Gonzalez returns today for follow up of Hyperlipidemia Gertrudis indicates her exercise level as not at all. Diet: eaintg less with ozempic Patient is compliant with medications Any side effects to medications: chest pain No myalgia No memory change No Pt is due for labs The following portions of the patient's history were reviewed and updated as appropriate: allergies, current medications, past family history, past medical history, past social history, past surgicalhistory, and problem list. Review of Systems Constitutional: Negative. Gastrointestinal: Positive for constipation. Objective Physical Exam Vitals and nursing note [...] with long-term current use of insulin - Semaglutide,0.25 or 0.5MG/DOS, (Ozempic, 0.25 or 0.5 MG/DOSE,) 2 MG/1.5ML solution pen-injector; 0.5mg SQ weekly Dispense: 3 mL; Refill: 3 - CBC & Differential - Comprehensive Metabolic Panel - Hemoglobin A1c - Insulin Glargine (LANTUS SOLOSTAR) 100 UNIT/ML injection pen; Inject 60 Units under the skin intothe appropriate area as directed Daily. Disp quant suff Dispense: 30 mL; Refill: 5 2. Mixed hyperlipidemia - atorvastatin (Lipitor) 40 MG tablet; Take 1 tablet by mouth Every Night. Dispense: 90 tablet; Refill: 1 3. Primary insomnia - traZODone (DESYREL) 50 MG tablet; TAKE 1 TO 2 TABLETS BY MOUTH AT BEDTIME NEEDED Dispense: 180tablet; Refill: 1 4. Postlaminectomy syndrome of lumbar region - traMADol (ULTRAM) 50 MG tablet; Take 1 tablet by mouth Every 8 (Eight) Hours As Needed for Moderate Pain. Dispense: 90 tablet; Refill: 0 5. Herniated lumbar intervertebral disc - traMADol (ULTRAM) 50 MG tablet; Take 1 tablet by mouth Every 8 (Eight) Hours As Needed for Moderate Pain. Dispense: 90 tablet; Refill: 0 6. Essential hypertension - losartan (COZAAR) 100 MG tablet; Take 1 tablet by mouth Daily. Dispense: 90 tablet; Refill: 1 7. Chronic migraine without aura without status migrainosus, not intractable - topiramate (TOPAMAX) 50 MG tablet; Take 1 tablet by mouth Daily As Needed (migraine). Dispense: 90 tablet; Refill: 1 Recheck DM labs and continue ozempic 0.5 mg. Watch constipation No change in lipitor Ok tramadol BID PRN for pains, GENE reviewed Samples trulance given for constipation. She will call with results. 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 Prediabetes: 5.7 - 6.4 ? Diabetes: >6.4 ? Glycemic control for adults with diabetes: <7.0 Blood 11/27/2022 2:10 PM EDT 11/27/2022 Narrative [facility] (AMBULATORY) - 11/28/2022 4:08 AM EDT Performed at: ??01 - [facility] [address] [facility], [place], [place] ??[id number] Brake Mechanic: Malik Hall PhD, Phone: ??[phone] Patient Fasting: ??N us Alex Davis MD LAB BLOOD ORDERABLES Final Resu lt [facility] (AMBULATORY) [address] [place] [address], [facility] [address] [place] [address], * (ABNORMAL) Comprehensive Metabolic Panel (11/27/2022 2:10 PM EDT) Glucose 159(H) 70 - 99 mg/dL [facility] BUN 15 8 - 27 mg/dL [facility] Creatinine 0.69 0.57 - 1.00 mg/dL [facility] EGFR Result 96 >59 mL/min/1.7 3 [facility] BUN/Creatinine Ratio 22 12 - 28 [facility] Sodium 142 134 - 144 mmol/L [facility] Potassium 4.7 3.5 - 5.2 mmol/L [facility] Chloride 101 96 - 106 mmol/L [facility] Total CO2 28 20 - 29 mmol/L [facility] Calcium 10.4(H) 8.7 - 10.3 mg/dL [facility] Total Protein 6.8 6.0 - 8.5 g/dL [facility] Albumin 4.3 3.9 - 4.9 g/dL [facility] Globulin 2.5 1.5 - 4.5 g/dL [facility] A/G Ratio 1.7 1.2 - 2.2 [facility] Total Bilirubin 0.3 0.0 - 1.2 mg/dL [facility] Alkaline Phosphatase 141(H) 44 - 121 IU/L [facility] AST (SGOT) 36 0 - 40 IU/L [facility] ALT (SGPT) 40(H) 0 - 32 IU/L [facility] Blood 11/27/2022 2:10 PM EDT 11/27/2022 Narrative [facility] ([facility]) - 11/28/2022 4:08 AM EDT Performed at: ??01 - [facility] [address] [facility], [place], [place] ??[id number] Brake Mechanic: Malik Hall PhD, Phone: ??[phone] Patient Fasting: ??N us Alex Davis MD LAB BLOOD ORDERABLES Final Resu lt [facility] (AMBULATORY) [address] [place] [address], [facility] [address] [place] [address], * CBC & Differential (11/27/2022 2:10 PM EDT) WBC 6.0 3.4 - 10.8 x10E3/uL [facility] RBC 4.95 3.77 - 5.28 x10E6/uL [facility] Hemoglobin 14.4 11.1 - 15.9 g/dL [facility] Hematocrit 43.9 34.0 - 46.6 % [facility] MCV 89 79 - 97 fL [facility] MCH 29.1 26.6 - 33.0 pg [facility] MCHC 32.8 31.5 - 35.7 g/dL [facility] RDW 12.9 11.7 - 15.4 % [facility] Platelets 260 150 - 450 x10E3/uL [facility] Neutrophil Rel % 58 Not Estab. % [facility] Lymphocyte Rel % 32 Not Estab. % [facility] Monocyte Rel % 7 Not Estab. % [facility] Eosinophil Rel % 2 Not Estab. % [facility] Basophil Rel % 1 Not Estab. % [facility] Neutrophils Absolute 3.5 1.4 - 7.0 x10E3/uL [facility] Lymphocytes Absolute 1.9 0.7 - 3.1 x10E3/uL [facility] Monocytes Absolute 0.4 0.1 - 0.9 x10E3/uL [facility] Eosinophils Absolute 0.1 0.0 - 0.4 x10E3/uL [facility] Basophils Absolute 0.1 0.0 - 0.2 x10E3/uL [facility] Immature Granulocyte Rel % 0 Not Estab. % [facility] Immature Grans Absolute 0.0 0.0 - 0.1 x10E3/uL [facility] Blood 11/27/2022 2:10 PM EDT 11/27/2022 Narrative [facility] (AMBULATORY) - 11/28/2022 4:08 AM EDT Performed at: ??01 - [facility] [address] [place], [place] ??[id number] Brake Mechanic: Malik Hall PhD, Phone: ??[phone] Patient Fasting: ??N us Alex Davis MD LAB BLOOD ORDERABLES Final Resu lt [facility] (AMBULATORY) [address] [place] [address], [place] [phone] [facility] [address] [place] [address], [place] [phone] documented in this encounter Visit Diagnoses Diagnosis 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, with long-term current use of insulin Mixed hyperlipidemia Primary insomnia Persistent disorder of initiating or maintaining sleep Postlaminectomy syndrome of lumbar region Postlaminectomy syndrome, lumbar region Herniated lumbar intervertebral disc Displacement of lumbar intervertebral disc without myelopathy Essential hypertension Unspecified essential hypertension Chronic migraine without aura without status migrainosus, not intractable documented in this encounter Care Teams Tobacco Warehouse Manager Relationship Specialty Start Date End Date Alex Davis MD [address] [place] [address] PCP - General Family Medicine 09/05/21 documented as of this encounter
--- OUTSIDE RECORDS SUMMARY | 2024-02-20 09:08 | XMS_ITS | Encounter Summary ---
[facility] [address] [place] [address] Care Team Providers Care Harpsichord Maker Name Role Phone Alex Davis MD Primary Care Provider [phone] Reason for Visit * Reason Comments Med Refill Encounter Details Date Type Department Care Team (Late Contact Info) Description 01/23/2022 Refill [facility] FAMILY MEDICINE [address] [place] [address] Alex Davis MD [address] [place] [address] Postlaminectomy syndrome of lumbar region; [...] Description 03/13/2024 2:45 PM EST Office Visit [facility] CARDIOLOGY [address] [facility] [place] [address] Pj Ace MD [address] [facility] [address] [place] [address] documented as of this encounter Visit Diagnoses Diagnosis Postlaminectomy syndrome of lumbar region Postlaminectomy syndrome, lumbar region Herniated lumbar intervertebral disc Displacement of lumbar intervertebral disc without myelopathy documented in this encounter Care Teams Harpsichord Maker Relationship Specialty Start Date End Date Alex Davis MD [address] [place] [address] PCP - General Family Medicine 09/05/21 documented as of this encounter
--- OUTSIDE RECORDS SUMMARY | 2024-02-20 09:08 | XMS_ITS | Encounter Summary ---
[facility] Address [address] [place] [address] Care Team Providers Care Tar Leveler Name Role Phone Alex Davis MD Primary Care Provider [phone] Reason for Referral * Diagnostic Medical (Routine) - Closed Specialty Diagnoses / Procedures Referred By Contac t Referred To Contact Gastroenterology Diagnoses Esophageal dysphagia Alex Davis MD [address] [place] [place] [address] Phone: tel: fax: [facility] [address] [place] [address] Phone: tel: fax: Referral ID Status Reason Start Date Expiration Date V isits Requested Visits Authorized [id number] Closed Specialty Services Required 05/22/2022 05/22/2023 1 1 Reason for Visit * Reason Comments Follow-up Diabetes Labs Only Med Refill Encounter Details Date Type Department Care Team (Latest Contact Info) Description 05/22/2022 11:00 AM EST Office Visit [facility] [address] [place] [id number] Alex Davis MD [address] [place] [place] [address] 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, with long-term current use of insulin (Primary Dx); Mixed hyperlipidemia; Essential hypertension; Esophageal dysphagia; Chronic migraine without aura without status migrainosus, not intractable; Primary insomnia; RLS (restless legs syndrome); Postlaminectomy syndrome of [...] Sign Reading Time Taken Comments Blood Pressure 150/84 05/22/2022 10:47 AM EST Pulse 97 05/22/2022 10:47 AM EST Temperature 36.2 ??C (97.1 ??F) 05/22/2022 10:[address] Respiratory Rate - - Oxygen Saturation 98% 05/22/2022 10:47 AM EST Inhaled Oxygen Concentration - - Weight 84.2 kg (185 lb 9.6 oz) 05/22/2022 10:47 AM EST Height - - Body Mass Index 33.95 02/17/2022 10:46 AM EST documented in this encounter Progress Notes * Alex Davis MD - 05/22/2022 11:00 AM EST Subjective Gertrudis Gonzalez is a 66 y.o. [...] 30 kg/m2) Current diabetic medications include lantus and janumet. Current monitoring regimen: home blood tests - multiple times daily Home blood sugar records: fasting range: checking with dexcom on regular basis Any episodes of hypoglycemia? no Eye exam [...] exercise level as not at all. Diet: trying to eat better Patient is compliant with medications Any side effects to medications: chest pain No myalgia No memory change No Pt is due for labs The following portions of the patient's history were reviewed and updated as appropriate: allergies, current medications, past family history, past medical history, past social history, past surgicalhistory and problem list. Review of Systems Constitutional: Negative. Psychiatric/Behavioral: Negative. Objective Physical Exam Vitals [...] with long-term current use of insulin (HCC) (Primary) - SITagliptin-metFORMIN HCl ER (Janumet XR) 100-1000 MG tablet; Take 1 tablet by mouth Daily. Dispense: 90 tablet; Refill: 1 - Insulin Glargine (LANTUS SOLOSTAR) 100 UNIT/ML injection pen; Inject 60 Units under the skin intothe appropriate area as directed Daily. Disp quant suff Dispense: 30 mL; Refill: 5 - Continuous Blood Gluc Sensor (Dexcom G6 Sensor); Every 10 (Ten) Days. Dispense: 9 each; Refill: 5 - CBC & Differential - Comprehensive Metabolic Panel - Hemoglobin A1c 2. Mixed hyperlipidemia - atorvastatin (Lipitor) 40 MG tablet; Take 1 tablet by mouth Every Night. Dispense: 90 tablet; Refill: 1 - Comprehensive Metabolic Panel - Lipid Panel 3. Essential hypertension - losartan (COZAAR) 100 MG tablet; Take 1 tablet by mouth Daily. Dispense: 90 tablet; Refill: 1 - CBC & Differential - Comprehensive Metabolic Panel 4. Esophageal dysphagia - Ambulatory referral for Screening EGD 5. Chronic migraine without aura without status migrainosus, not intractable - topiramate (TOPAMAX) 50 MG tablet; Take 1 tablet by mouth Daily As Needed (migraine). Dispense: 90 tablet; Refill: 1 6. Primary insomnia - traZODone (DESYREL) 50 MG tablet; TAKE 1 TO 2 TABLETS BY MOUTH AT BEDTIME NEEDED Dispense: 180tablet; Refill: 1 7. RLS (restless legs syndrome) - rOPINIRole (REQUIP) 1 MG tablet; Take 1 tablet by mouth Every Night. Take 1 hour before bedtime. Dispense: 90 tablet; Refill: 1 8. Postlaminectomy syndrome of lumbar region - meloxicam (MOBIC) 7.5 MG tablet; Take 1 tablet by mouth Daily. Dispense: 90 tablet; Refill: 1 9. Herniated lumbar intervertebral disc - meloxicam (MOBIC) 7.5 MG tablet; Take 1 tablet by mouth Daily. Dispense: 90 tablet; Refill: 1 recheck DM ahnd continue lantus and janumet. Using dexcom to more closely monitor her glucose levels BP stable on losartan, no change Recheck lipids and refilled her statin Will work on EGD for dysphagia and she will reach out to her GI to discuss gastroparesis and followup with them Ok trazodone for sleep and requip for RLS, no changes today documented in this encounter Plan of Treatment Upcoming Encounters Date Type Department Care Team (Late st Contact Info) Description 03/13/2024 2:45 PM EST Office Visit [facility] C[facility] [address] [place] [address] [place] [address] Pj Ace MD [address] [facility] [facility] [address] [place] [address] documented as of this encounter Procedures Procedure Name Priority Date/Time Associated Diagnosis Comments CBC AND DIFFERENTIAL Routine 05/22/2022 11:15 AM EST 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, with long-term current use of insulin Essential hypertension HEMOGLOBIN A1C Routine 05/22/2022 11:15 AM EST 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, with long-term current use of insulin LIPID PANEL Routine 05/22/2022 11:15 AM EST Mixed hyperlipidemia COMPREHENSIVE METABOLIC PANEL Routine 05/22/2022 11:15 AM EST 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, with long-term current use of insulin Mixed hyperlipidemia Essential hypertension documented in this encounter Results * (ABNORMAL) Lipid Panel (05/22/2022 11:15 AM EST) Pathologist [facility] Total Cholesterol 226(H) 0 - 200 mg/dL [facility] Comment: [...] 160-189 mg/dL Very High ?>189 mg/dL Triglycerides 212(H) 0 - 150 mg/dL [facility] HDL Cholesterol 58 40 - 60 mg/dL [facility] VLDL Cholesterol Bill 37 5 - 40 mg/dL [facility] LDL Chol Calc (NIH) 131(H) 0 - 100 mg/dL [facility] Blood 05/22/2022 11:1 5 AM EST 05/22/2022 Narrative [facility] (AMBULATORY) - 05/23/2022 3:07 AM EST Performed at: ?? [address] ??[id number] Renewable Energy Engineer: Lane Haile MD, Phone: ??[phone] Patient Fasting: ??Y Alex Davis MD LAB BLOOD ORDERABLES Final Resu lt [facility] (AMBULATORY) [address] [place] [address], [facility] [address] [place] [address], * (ABNORMAL) Hemoglobin A1c (05/22/2022 11:15 AM EST) Hemoglobin A1C 7.70(H) 4.80 - 5.60 % [facility] Comment: Hemoglobin A1C Ranges: Increased Risk for Diabetes ??5.7% to 6.4% Diabetes ? >= 6.5% Diabetic Goal ?< 7.0% Blood 05/22/2022 11:1 5 AM EST 05/22/2022 Narrative [facility] ([facility]UL[facility]ORY) - 05/23/2022 3:07 AM EST Performed at: ??[address] [facility] [address] [place], [place] ??[id number] Renewable Energy Engineer: Lane Haile MD, Phone: ??[phone] Patient Fasting: ??Y us Alex Davis MD LAB BLOOD ORDERABLES Final Resu lt [facility] (AMBULATORY) [address] [place] [address], [facility] [address] [place] [address], * (ABNORMAL) Comprehensive Metabolic Panel (05/22/2022 11:15 AM EST) Pathologist [facility] Glucose 159(H) 65 - 99 mg/dL [facility] BUN 19 8 - 23 mg/dL [facility] Creatinine 0.66 0.57 - 1.00 mg/dL [facility] EGFR Result 97.5 >60.0 mL/min/1.7 3 [facility] Comment: GFR Normal >60 Chronic Kidney Disease <60 Kidney Failure <15 BUN/Creatinine Ratio 28.8(H) 7.0 - 25.0 [facility] Sodium 143 136 - 145 mmol/L [facility] Potassium 4.4 3.5 - 5.2 mmol/L [facility] Chloride 101 98 - 107 mmol/L [facility] Total CO2 30.4(H) 22.0 - 29.0 mmol/L [facility] Calcium 10.3 8.6 - 10.5 mg/dL [facility] Total Protein 7.6 6.0 - 8.5 g/dL [facility] Albumin 4.7 3.5 - 5.2 g/dL [facility] Globulin 2.9 gm/dL [facility] A/G Ratio 1.6 g/dL [facility] Total Bilirubin 0.4 0.0 - 1.2 mg/dL [facility] Alkaline Phosphatase 138(H) 39 - 117 U/L [facility] AST (SGOT) 47(H) 1 - 32 U/L [facility] ALT (SGPT) 61(H) 1 - 33 U/L [facility] Blood 05/22/2022 11:1 5 AM EST 05/22/2022 Narrative [facility] (AMBUL[facility]ORY) - 05/23/2022 3:07 AM EST Performed at: ??[address] ??[id number] Renewable Energy Engineer: Lane Haile MD, Phone: ??[phone] Patient Fasting: ??Y us Alex Davis MD LAB BLOOD ORDERABLES Final Resu lt [facility] (AMBULATORY) [address] [place] [address], [facility] [address] [place] [address], * CBC & Differential (05/22/2022 11:15 AM EST) WBC 5.42 3.40 - 10.80 10*3/mm3 [facility] RBC 5.08 3.77 - 5.28 10*6/mm3 [facility] Hemoglobin 14.8 12.0 - 15.9 g/dL [facility] Hematocrit 44.9 34.0 - 46.6 % [facility] MCV 88.4 79.0 - 97.0 fL [facility] MCH 29.1 26.6 - 33.0 pg [facility] MCHC 33.0 31.5 - 35.7 g/dL [facility] RDW 12.6 12.3 - 15.4 % [facility] Platelets 244 140 - 450 10*3/mm3 [facility] Neutrophil Rel % 53.2 42.7 - 76.0 % [facility] Lymphocyte Rel % 33.9 19.6 - 45.3 % [facility] Monocyte Rel % 7.9 5.0 - 12.0 % [facility] Eosinophil Rel % 3.3 0.3 - 6.2 % [facility] Basophil Rel % 1.3 0.0 - 1.5 % [facility] Neutrophils Absolute 2.88 1.70 - 7.00 10*3/mm3 [facility] Lymphocytes Absolute 1.84 0.70 - 3.10 10*3/mm3 [facility] Monocytes Absolute 0.43 0.10 - 0.90 10*3/mm3 [facility] Eosinophils Absolute 0.18 0.00 - 0.40 10*3/mm3 [facility] Basophils Absolute 0.07 0.00 - 0.20 10*3/mm3 [facility] Immature Granulocyte Rel % 0.4 0.0 - 0.5 % [facility] Immature Grans Absolute 0.02 0.00 - 0.05 10*3/mm3 [facility] nRBC 0.0 0.0 - 0.2 /100 WBC [facility] Blood 05/22/2022 11:1 5 AM EST 05/22/2022 Narrative [facility] (AMB[facility]ORY) - 05/23/2022 3:07 AM EST Performed at: ??[address] ??[id number] Renewable Energy Engineer: Lane Haile MD, Phone: ??[phone] Patient Fasting: ??Y us Alex Davis MD LAB BLOOD ORDERABLES Final Resu lt [facility] (AMBUL[facility]ORY) [address] [place] [address], [place] [phone] [facility] [address] [place] [address], [place] [phone] documented in this encounter Visit Diagnoses Diagnosis 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, with long-term current use of insulin- Primary Mixed hyperlipidemia Essential hypertension Unspecified essential hypertension Esophageal dysphagia Dysphagia, pharyngoesophageal phase Chronic migraine without aura without status migrainosus, not intractable Primary insomnia Persistent disorder of initiating or maintaining sleep RLS (restless legs syndrome) Restless legs syndrome (RLS) Postlaminectomy syndrome of lumbar region Postlaminectomy syndrome, lumbar region Herniated lumbar intervertebral disc Displacement of lumbar intervertebral disc without myelopathy documented in this encounter Care Teams Tar Leveler Relationship Specialty Start Date End Date Alex Davis MD [address] [place] [address] PCP - General Family Medicine 09/05/21 documented as of this encounter
--- OUTSIDE RECORDS SUMMARY | 2024-02-20 09:08 | XMS_ITS | Encounter Summary ---
[facility] Address [address] [place] [address] Care Team Providers Care Shipmaster Name Role Phone Alex Davis MD Primary Care Provider [phone] Reason for Visit * Reason Onset Date Comments Med Refill 03/21/2022 Encounter Details Date Type Department Care Team (Late st Contact Info) Description 03/21/2022 Refill [facility]INE [address] [place] [id number] Alex Davis MD [address] [place] [address] Social History Tobacco Use Types [...] Encounter - Pamela Mcnulty RegSched Rep - 03/21/2022 3:45 PM EST Caller: Gertrudis Gonzalez Relationship: Self Best call back number: [phone] Requested Prescriptions: Requested Prescriptions Pending Prescriptions Disp Refills ??? omeprazole (priLOSEC) 40 MG capsule Sig: Take 1 capsule by mouth Daily. Pharmacy where request should be sent: [facility] - [address] [phone] [facility] [phone] Additional details provided by patient: PLEASE REFILL Does the patient have less than a 3 day supply: [] Yes [x] No Would you like a call back once the refill request has been completed: [] Yes [x] No If the office needs to give you a call back, can they leave a voicemail: [] Yes [x] No Slava Payne Rep 03/21/22 15:46 EST documented in this encounter Plan of Treatment Upcoming Encounters Date Type Department Care Team (Late st Contact Info) Description 03/13/2024 2:45 PM EST Office Visit [facility] CARDIOLOGY [address] [facility] [place] [address] Pj Ace MD [address] [facility] [address] [address] documented as of this encounter Visit Diagnoses Not on filedocumented in this encounter Care Teams Shipmaster Relationship Specialty Start Date End Date Alex Davis MD [address] [place] [address] PCP - General Family Medicine 09/05/21 documented as of this encounter
--- OUTSIDE RECORDS SUMMARY | 2024-02-20 09:08 | XMS_ITS | Encounter Summary ---
[facility] Address [address] [place] [id number] Care Team Providers Care Long Term Care Pharmacist Name Role Phone Alex Davis MD Primary Care Provider [phone] Reason for Visit * Reason Comments Med Refill Encounter Details Date Type Department Care Team (Late st Contact Info) Description 06/15/2022 Refill [facility] ENDOCR[facility]OLOGY [address] [facility] [address] [place] [id number] Roc Tracey PA-C [address] [facility] [address] [place] [address] Uncontrolled type 2 diabetes mellitus with hyperglycemia Social History Tobacco Use Types Packs/Day Years [...] Description 03/13/2024 2:45 PM EST Office Visit [facility] C[facility] [address] [facility] [place] [address] Pj Ace MD [address] [facility] [address] [address] documented as of this encounter Visit Diagnoses Diagnosis Uncontrolled type 2 diabetes mellitus with hyperglycemia documented in this encounter Care Teams Long Term Care Pharmacist Relationship Specialty Start Date End Date Alex Davis MD [address] [place] [address] PCP - General Family Medicine 09/05/21 documented as of this encounter
--- OUTSIDE RECORDS SUMMARY | 2024-02-20 09:08 | XMS_ITS | Encounter Summary ---
[facility] [address] [place] [address] Care Team Providers Care Operating Manager Name Role Phone Alex Davis MD Primary Care Provider [phone] Reason for Visit * Reason Onset Date Comments Med Refill 10/02/2022 Encounter Details Date Type Department Care Team (Late st Contact Info) Description 10/02/2022 Telephone [facility]ICINE [address] [place] [address] Alex Davis MD [address] [place] [address] Med Refill Social History Tobacco Use Types Packs/Day Years [...] Telephone Encounter - Alex Davis MD - 10/02/2022 1:48 PM EDT done * Telephone Encounter - Jany Lopez - 10/02/2022 11:40 AM EDT Caller: Gertrudis Gonzalez Relationship: Self Best call back number: [phone] What medication are you requesting: NEEDS NEEDLES FOR LANTUS AND OZEMPIC. If a prescription is needed, what is your preferred pharmacy and phone number: [facility] - [place], [place] - [address] - [phone] [facility] [phone] FX Additional notes: documented in this encounter Plan of Treatment Upcoming Encounters Date Type Department Care Team (Late st Contact Info) Description 03/13/2024 2:45 PM EST Office Visit [facility] CARDIOLOGY [address] [facility] [place] [address] Pj Ace MD [facility] [address] [address] documented as of this encounter Visit Diagnoses Diagnosis Uncontrolled type 2 diabetes mellitus with hyperglycemia documented in this encounter Care Teams Operating Manager Relationship Specialty Start Date End Date Alex Davis MD [address] [place] [address] PCP - General Family Medicine 09/05/21 documented as of this encounter
--- OUTSIDE RECORDS SUMMARY | 2024-02-20 09:08 | XMS_ITS | Encounter Summary ---
[facility] [address] [place] [address] Care Team Providers Care Permit Coordinator Name Role Phone Alex Shea MD Primary Care Provider [phone] Reason for Visit * Reason Onset Date Comments MD SHEA - DEXCOM TRANSMITTER 09/18/2022 Encounter Details Date Type Department Care Team (Late st Contact Info) Description 09/18/2022 Telephone [facility] FAMILY MEDICINE [address] [place] [address] Alex Shea MD [address] [place] [address] MD SHEA - DEXCOM TRANSMITTER Social History Tobacco Use Types Packs/Day Years [...] Telephone Encounter - Dinah Noyola MA - 09/18/2022 4:26 PM EDT Dexcom transmitter was send to [facility] in may refills. Patient advised to call [facility] to have them refill script. Needing Metformin, Ozempic, and Nifedipine sent to [facility] w/ day supply. * Telephone Encounter - Anamaria Crowder PA - 09/18/2022 3:53 PM EDT I am not sure how I can help. Not sure where would have this. Can see if current supplier can make suggestions of where we can try * Telephone Encounter - Edilia Durán RegSched Rep - 09/18/2022 2:34 PM EDT Caller: Gertrudis Gonzalez Relationship to patient: Self Best call back number: [phone] Patient is needing: PATIENT STATES SHE RECEIVED A NOTIFICATION THAT SHE NEEDED TO ORDER A NEW TRANSMITTER FOR HER DEXCOM 6 WITHIN 8 DAYS. PATIENT STATES SHE CALLED THE SUPPLIER SHE IS USED TO ORDERING FROM BUT THEY TOLD HER THEY NO LONGER SUPPLIED THE TRANSMITTER. PATIENT IS REQUESTING TO KNOW WHERE TO ORDER A TRANSMITTER FROM. PLEASE CALL PATIENT BACK, IF NO ANSWER LEAVE A DETAILED MESSAGE. 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
--- OUTSIDE RECORDS SUMMARY | 2024-02-20 09:08 | XMS_ITS | Encounter Summary ---
Author Organization [facility] Address [address] [place] [address] Care Team Providers Care Standard Machine Stitcher Name Role Phone Alex Davis MD Primary Care Provider [phone] Reason for Visit * Reason Onset Date Comments PAPERWORK REQUEST 08/14/2022 Encounter Details Date Type Department Care Team (Late st Contact Info) Description 08/14/2022 Telephone [facility] FAM[facility] MEDICINE [address] [place] [address] Alex Davis MD [address] [place] [address] PAPERWORK REQUEST Social History Tobacco Use Types Packs/Day [...] encounter Miscellaneous Notes * Telephone Encounter - Mayda Crane - 08/15/2022 10:41 AM EDT [facility] WAS CALLED. * Telephone Encounter - Markie Clark RegSched Rep - 08/14/2022 1:47 PM EDT Caller: BRAD - [employer] Relationship: Other Best call back number: [phone] What form or medical record are you requesting: A1C LAB NOTES Who is requesting this form or medical record from you: BRAD - [employer] [facility] How would you like to receive the form or medical records (pick-up, mail, fax): PLEASE FAX. ATTN: [employer] FAX NUMBER: [phone] Timeframe paperwork needed: HAYES Additional notes: BRAD IS REQUESTING ANY RECENT A1C LAB RESULTS FROM MAY 2022 UP CURRENT DAY. documented in this encounter Plan of Treatment Upcoming Encounters Date Type Department Care Team (Late st Contact Info) Description 03/13/2024 2:45 PM EST Office Visit [facility] CARDIOLOG[facility] [address] [place] [address] Pj Ace MD [address] [facility] [address] [address] documented as of this encounter Visit Diagnoses Not on filedocumented in this encounter Care Teams Standard Machine Stitcher Relationship Specialty Start Date End Date Alex Davis MD [address] [place] [address] PCP - General Family Medicine 09/05/21 documented as of this encounter
--- OUTSIDE RECORDS SUMMARY | 2024-02-20 09:08 | XMS_ITS | Encounter Summary ---
[facility] Organization [facility] Address [address] [place] [address] Care Team Providers Care Corporate Director Of Pharmacy Name Role Phone Alex Davis MD Primary Care Provider [phone] Reason for Visit * Reason Onset Date Comments Med Refill 12/07/2022 Encounter Details Date Type Department Care Team (Late st Contact Info) Description 12/07/2022 Telephone [facility] MEDICINE [address] [place] [address] Alex Davis MD [address] [place] [address] Med Refill Social History Tobacco [...] Telephone Encounter - Alex Davis MD - 12/07/2022 8:15 PM EDT Sent in * Telephone Encounter - Jany Lopez - 12/07/2022 12:44 PM EDT Caller: Gertrudis Gonzalez Relationship: Self Best call back number: [phone] What medication are you requesting: TRUELANCE If a prescription is needed, what is your preferred pharmacy and phone number: [facility]) - [address] [phone] [facility] [phone] Additional notes: PATIENT STATES MEDICATION SAMPLES WORKED WELL. WOULD LIKE 90 DAY SUPPLY OF MEDICATION. documented in this encounter Plan of Treatment Upcoming Encounters Date Type Department Care Team (Late st Contact Info) Description 03/13/2024 2:45 PM EST Office Visit [facility] CARDIOLOGY [address] [facility] [address] Pj Ace MD [address] [facility] [address] [address] documented as of this encounter Visit Diagnoses Diagnosis Chronic idiopathic constipation- Primary Unspecified constipation documented in this encounter Care Teams Corporate Director Of Pharmacy Relationship Specialty Start Date End Date Alex Davis MD [address] [place] [address] PCP - General Family Medicine 09/05/21 documented as of this encounter
--- OUTSIDE RECORDS SUMMARY | 2024-02-20 09:08 | XMS_ITS | Encounter Summary ---
[facility] Organization [facility] Address [address] [place] [address] Care Team Providers Care Lead Infrastructure Architect Name Role Phone Alex Davis MD Primary Care Provider [phone] Reason for Visit * Reason Onset Date Comments MED CONCERN 10/18/2022 Encounter Details Date Type Department Care Team (Late st Contact Info) Description 10/18/2022 Telephone [facility] FAMILY MEDICINE [address] [place] [address] Alex Davis MD [address] [place] [address] MED CONCERN Social History Tobacco Use Types Packs/Day Years [...] Telephone Encounter - Naya Santiago MA - 10/24/2022 5:18 PM EDT Notes with DX code faxed to [facility] which is the number provided when I called the humber that was in the message * Telephone Encounter - Aura Hutchinson RegSched Rep - 10/18/2022 10:28 AM EDT Caller: [facility] Relationship: Best call back number: [phone] What medications are you currently taking: Current Outpatient Medications on File Prior to Visit Medication Sig Dispense Refill atorvastatin (Lipitor) 40 MG tablet Take 1 tablet by mouth Every Night. 90 tablet 1 azithromycin (Zithromax) 250 MG tablet Take 2 tablets the first day, then 1 tablet daily for 4 days. 6 tablet 0 bethanechol (URECHOLINE) 50 MG tablet Take 1 tablet by mouth 2 (Two) Times a Day. Continuous Blood Gluc Sensor (Dexcom G6 Sensor) Every 10 (Ten) Days. 9 each 5 Continuous Blood Gluc Transmit (Dexcom G5 Mobile Transmitter) misc 1 each Daily. 1 each 3 docusate sodium (COLACE) 100 MG capsule Take 1 capsule by mouth 2 (Two) Times a Day. estradiol (ESTRACE VAGINAL) 0.1 MG/GM vaginal cream Insert 2 g into the vagina 1 (One) Time Per Week. 42.5 g 5 ezetimibe (ZETIA) 10 MG tablet TAKE 1 TABLET DAILY 90 tablet 3 furosemide (LASIX) 20 MG tablet Take 1 tablet by mouth As Needed. Insulin Glargine (LANTUS SOLOSTAR) 100 UNIT/ML injection pen Inject 60 Units under the skin into the appropriate area as directed Daily. Disp quant suff 30 mL 5 Insulin Lispro, 1 Unit Dial, (HumaLOG KwikPen) 100 UNIT/ML solution pen-injector Take 16 units before meals, correction 2:50 >150, MDD 60U 54 mL 1 Insulin Pen Needle 32G X 4 MM misc Use daily with insulin up to 6 times per day 600 each 3 losartan (COZAAR) 100 MG tablet Take 1 tablet by mouth Daily. 90 tablet 1 meloxicam (MOBIC) 7.5 MG tablet Take 1 tablet by mouth Daily. 90 tablet 1 metFORMIN ER (GLUCOPHAGE-XR) 500 MG 24 hr tablet Take 2 tablets by mouth Daily With Breakfast. 180 tablet 3 metoclopramide (REGLAN) 5 MG tablet Take 1 tablet by mouth 3 (Three) Times a Day. Movantik 25 MG tablet NIFEdipine CC (ADALAT CC) 60 MG 24 hr tablet Take 1 tablet by mouth Daily. 90 tablet 3 omeprazole (priLOSEC) 40 MG capsule TAKE 1 CAPSULE BY MOUTH DAILY 90 capsule 3 rOPINIRole (REQUIP) 1 MG tablet Take 1 tablet by mouth Every Night. Take 1 hour before bedtime. 90 tablet 1 Semaglutide,0.25 or 0.5MG/DOS, (Ozempic, 0.25 or 0.5 MG/DOSE,) 2 MG/1.5ML solution pen-injector 0.25mg SQ weekly 4 weeks then 0.5mg SQ weekly 3 mL 3 topiramate (TOPAMAX) 50 MG tablet Take 1 tablet by mouth Daily As Needed (migraine). 90 tablet 1 traMADol (ULTRAM) 50 MG tablet Take 1 tablet by mouth Every 8 (Eight) Hours As Needed for Moderate Pain. 90 tablet 2 traZODone (DESYREL) 50 MG tablet TAKE 1 TO 2 TABLETS BY MOUTH AT BEDTIME NEEDED 180 tablet 1 No current facility-administered medications on file prior to visit. What are your concerns: CALLED TO REQUEST CLINICAL NOTES, DIAGNOSIS FOR RX Insulin Pen Needle 32G X 4 MM mis documented in this encounter Plan of Treatment Upcoming Encounters Date Type Department Care Team (Late st Contact Info) Description 03/13/2024 2:45 PM EST Office Visit [facility] CARDIOLOGY [address] [place] [address] Pj Ace MD [address] [facility] [address] [address] documented as of this encounter Visit Diagnoses Not on filedocumented in this encounter Care Teams Lead Infrastructure Architect Relationship Specialty Start Date End Date Alex Davis MD [address] [place] [address] PCP - General Family Medicine 09/05/21 documented as of this encounter
--- OUTSIDE RECORDS SUMMARY | 2024-02-20 09:08 | XMS_ITS | Encounter Summary ---
[facility] Address [address] [place] [address] Care Team Providers Care Flight Data Technician Name Role Phone Alex Davis MD Primary Care Provider [phone] Reason for Visit * Reason Comments Med Refill Encounter Details Date Type Department Care Team (Late Contact Info) Description 12/08/2022 Refill [facility] FAMILY MEDICINE [address] [place] [address] Alex Davis MD [address] [place] [address] Postlaminectomy syndrome of lumbar region; [...] 03/13/2024 2:45 PM EST Office Visit [facility] [address] [facility] [place] [address] Pj Ace MD [address] [facility] [address] [place] [address] documented as of this encounter Visit Diagnoses Diagnosis Postlaminectomy syndrome of lumbar region Postlaminectomy syndrome, lumbar region Herniated lumbar intervertebral disc Displacement of lumbar intervertebral disc without myelopathy documented in this encounter Care Teams Flight Data Technician Relationship Specialty Start Date End Date Alex Davis MD [address] [place] [address] PCP - General Family Medicine 09/05/21 documented as of this encounter
--- OUTSIDE RECORDS SUMMARY | 2024-02-20 09:08 | XMS_ITS | Encounter Summary ---
Author Organization [facility] Address [address] [place] [address] Care Team Providers Care Toy Maker Name Role Phone Alex Davis MD Primary Care Provider [phone] Reason for Visit * Reason Onset Date Comments Med Refill 06/12/2022 Encounter Details Date Type Department Care Team (Late st Contact Info) Description 06/12/2022 Telephone [facility] FAM[facility] MEDICINE [address] [place] [address] Alex Davis MD [address] [place] [address] Med Refill Social History Tobacco [...] Telephone Encounter - Alex Davis MD - 06/12/2022 4:25 PM EDT Transmitter sent in * Telephone Encounter - Nancy Das LPN - 06/12/2022 1:59 PM EDT Those were sensors. She need the transmitter. Said she usually get one every three months * Telephone Encounter - Alex Davis MD - 06/12/2022 1:50 PM EDT Refill was sent in on 05/21/22 for 6 months worth of these! * Telephone Encounter - Aura Hutchinson RegSched Rep - 06/12/2022 10:42 AM EDT Caller: Gertrudis Gonzalez Relationship: Self Best call back number: [phone] Requested Prescriptions: DEXCOM G6 TRANSMITTER Pharmacy where request should be sent: [facility] - [place], [place] - [address] [phone] [facility] [phone] FX Additional details provided by patient: STATE THAT SHE WILL BE OUT TODAY Does the patient have less than a 3 day supply: [x] Yes [] No Would you like a call back once the refill request has been completed: [x] Yes [] No If the office needs to give you a call back, can they leave a voicemail: [x] Yes [] No Slava Allred 06/12/22 10:42 EDT documented in this encounter Plan of Treatment Upcoming Encounters Date Type Department Care Team (Late st Contact Info) Description 03/13/2024 2:45 PM EST Office Visit [facility] CARDIOLOG[facility] [address] [place] [address] [address] [place] [address] Pj Ace MD [address] [facility] [address] [place] [address] documented as of this encounter Visit Diagnoses Diagnosis 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
--- OUTSIDE RECORDS SUMMARY | 2024-02-20 09:08 | XMS_ITS | Encounter Summary ---
[facility] Organization [facility] Address [address] [place] [address] Care Team Providers Care Call Center Coordinator Name Role Phone Alex Davis MD Primary Care Provider [phone] Reason for Visit * Reason Comments Med Refill Encounter Details Date Type Department Care Team (Late Contact Info) Description 03/14/2022 Refill [facility] FAMILY MEDICINE [address] [place] [address] Alex Davis MD [address] [place] [address] Postlaminectomy syndrome of lumbar region; [...] Visit [facility] C[facility] [address] [facility] [place] [place] [address] Pj Ace MD [address] [facility] [address] [place] [address] documented as of this encounter Visit Diagnoses Diagnosis Postlaminectomy syndrome of lumbar region Postlaminectomy syndrome, lumbar region Herniated lumbar intervertebral disc Displacement of lumbar intervertebral disc without myelopathy documented in this encounter Care Teams Call Center Coordinator Relationship Specialty Start Date End Date Alex Davis MD [address] [place] [address] PCP - General Family Medicine 09/05/21 documented as of this encounter
--- OUTSIDE RECORDS SUMMARY | 2024-02-20 09:08 | XMS_ITS | Encounter Summary ---
[facility] Address [address] [place] [id number] Care Team Providers Care Department Of Natural Resources Officer Name Role Phone Alex Davis MD Primary Care Provider [phone] Reason for Visit * Reason Comments Med Refill Encounter Details Date Type Department Care Team (Late st Contact Info) Description 12/02/2021 Refill [facility] [address] [facility] [address] [place] [id number] Roc Tracey PA-C [address] [facility] [address] [place] [address] Social History Tobacco Use Types Packs/Day Years [...] Visit [facility] [address] [facility] [place] [phone] Pj Ace MD [facility] [address] [place], [place] [id number] documented as of this encounter Visit Diagnoses Not on filedocumented in this encounter Care Teams Department Of Natural Resources Officer Relationship Specialty Start Date End Date Alex Davis MD [address] [place] [address] PCP - General Family Medicine 09/05/21 documented as of this encounter
--- OUTSIDE RECORDS SUMMARY | 2024-02-20 09:09 | XMS_ITS | Encounter Summary ---
Author Organization [facility] Address [address] [place] [address] Care Team Providers Care Saw Superintendent Name Role Phone Alex Davis MD Primary Care Provider [phone] Reason for Visit * Reason Comments Elevated Hepatic Enzymes * Consultation (Routine) - Closed Specialty Diagnoses / Procedures Referred By Contac t Referred To Contact Gastroenterology Diagnoses Gastroparesis Elevated LFTs Alex Davis MD [address] [facility] [facility] [place] [address] Phone: tel: fax: Umesh Fermin, AUTOMOBILE REPAIR SERVICE ESTIMATOR Phone: tel: fax: Referral ID Status Reason Start Date Expiration Date V isits Requested Visits Authorized [id number] Closed Specialty Services Required 09/05/2021 09/05/2022 1 1 Encounter Details Date Type Department Care Team (Late st Contact Info) Description 09/28/2021 10:30 AM EDT Office Visit [facility] GASTROENTEROLOGY [address] [place] [address] Umesh Fermin, AUTOMOBILE REPAIR SERVICE ESTIMATOR [address] [place] [address] Elevated liver enzymes (Primary Dx); Abnormal finding of blood chemistry, unspecified ; Mixed hyperlipidemia Social History Tobacco Use Types [...] Sign Reading Time Taken Comments Blood Pressure 130/60 09/28/2021 10:40 AM EDT Pulse - - Temperature 36.4 ??C (97.6 ??F) 09/28/2021 10:40 AM E DT Respiratory Rate - - Oxygen Saturation - - Inhaled Oxygen Concentration - - Weight 85 kg (187 lb 8 oz) 09/28/2021 10:40 AM E DT Height 157.5 cm (5' 2 ) 09/28/2021 10:40 AM EDT Body Mass Index 34.29 09/28/2021 10:40 AM EDT documented in this encounter Progress Notes * Umesh Fermin APRN - 09/28/2021 10:30 AM EDT GASTROENTEROLOGY OFFICE NOTE Gertrudis Gonzalez [id number] 1955 CARE TEAM Patient Care Team: Alex Davis MD as PCP - General (Family Medicine) Bebeto Adams MD as Consulting Physician (Pain Medicine) Damien Berg MD as Consulting Physician (Neurosurgery) Leidy Robertson MD as Consulting Physician (Internal Medicine) Guero Lunsford PA-C as Physician Administrator [facility] Care Facility (Physician Administrator Health Care Facility) Slime Hmamer APRN as Nurse Practitioner (Gastroenterology) Roc Tracey PA-C as Physician Administrator Health Care Facility (Family Medicine) Matty Lackey MD as Consulting Physician (Gastroenterology) Referring Provider: Alex Davis MD Chief Complaint Patient presents with ??? Elevated Hepatic Enzymes HISTORY OF PRESENT ILLNESS: Ms. Gonzalez is 65-year-old female referred for elevated liver enzymes AST 53/ALT 63/ALP 157. Review of medical record shows liver enzymes have been elevated dating back to 2017. Previous work-up has included an acute hepatitis panel that was nonreactive in 2018 and again in 2019, hemochromatosis mutation not identified in 2019, ultrasound liver in May 2018 shows fatty liver with hepatic elastography corresponding to F0 fibrosis. She has a history of colon polyps. Her last colonoscopy was in May [address] Lackey and was normal with the exception of internal hemorrhoids with recommendations to repeat colonoscopy againin 5 years. She has a history of gastroparesis. EGD in January [address] Lackey showed retained food in the stomach. Subsequent gastric emptying scan in April 2018 consistent with gastroparesis showing delayed emptying with 80% emptying at 4 hours and a T1 half of 2 hours. She reports she has been following with a specialist in [place] for gastroparesis for the past 3 years would like to continue treatment closer to home. She has been on Reglan for the past 3 years, at first she was taking this 3times a day but is taking it only 2 times a day currently. She is experiencing some eye twitching. PAST MEDICAL HISTORY Past Medical History: Diagnosis Date ??? Anxiety ??? Benign essential hypertension ??? Cervical disc disorder ??? Chronic pain disorder ??? Colon polyps ??? 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 Diabetes mellitus (HCC) ??? Extremity pain ??? Fatigue ??? Hip pain ??? History of migraine headaches ??? Insomnia ??? Lumbar radiculopathy ??? Lumbosacral disc disease ??? Myofascial pain syndrome ??? Palpitations ??? Sleep apnea ??? Spinal cord stimulator status ??? Urinary incontinence ??? Vitamin D deficiency PAST SURGICAL HISTORY Past Surgical History: Procedure Laterality Date ??? BLADDER SURGERY ??? BREAST EXCISIONAL BIOPSY Left Benign 2008 ??? COLONOSCOPY 2019 Complete Colonoscopy ??? ELBOW ARTHROPLASTY Left ??? HYSTERECTOMY Total Abdominal Hysterectomy (Description: BSO) ??? LUMBAR DISCECTOMY 04/29/2012 Lt- L4/5 discectomy redo Lt- L5/S1 foraminotomy -Dr. Damien eBrg ??? LUMBAR DISCECTOMY 06/17/2012 Re-do Lt- L4/[address] Damien Berg ??? OOPHORECTOMY ??? OTHER SURGICAL HISTORY Spinal Sterotaxis Stimulation Of Cord ??? SPINAL CORD STIMULATOR IMPLANT placement 2013, replacement 2014. Dr. Damien Berg ??? TUBAL ABDOMINAL LIGATION MEDICATIONS: Current Outpatient Medications: ??? albuterol sulfate HFA 108 (90 Base) MCG/ACT inhaler, Inhale 2 puffs Every 6 (Six) Hours As Needed for Wheezing or Shortness of Air., Disp: 18 g, Rfl: 11 ??? bethanechol (URECHOLINE) 50 MG tablet, Take 50 mg by mouth 3 (Three) Times a [...] Disp: 42.5 g, Rfl: 5 ??? ezetimibe (Zetia) 10 MG tablet, Take 1 tablet by mouth Daily., Disp: 90 tablet, Rfl: 1 ??? furosemide (LASIX) 20 MG tablet, Take 20 mg by mouth 2 (Two) Times a Day As Needed., Disp: , Rfl: ??? Insulin Glargine (LANTUS SOLOSTAR) 100 UNIT/ML injection pen, 35 units QAM (Patient taking differently: 47 Units Daily. 47units QAM), Disp: 36 mL, Rfl: 1 ??? Insulin Lispro, 1 Unit Dial, (HumaLOG KwikPen) 100 UNIT/ML solution pen- injector, Take 16 unitsbefore meals, correction 2:50 >150, MDD 60U, Disp: 54 mL, Rfl: 1 ??? Insulin Pen Needle 32G X 4 MM misc, Use daily with insulin up to 6 times per day, Disp: 600 each, Rfl: 3 ??? Januvia 100 MG tablet, TAKE 1 TABLET DAILY, Disp: 90 tablet, Rfl: 3 ??? losartan (COZAAR) 100 MG tablet, Take 100 mg by mouth Daily., Disp: , Rfl: ??? meloxicam (MOBIC) 7.5 MG tablet, Take 1 tablet by mouth Daily., Disp: 90 tablet, Rfl: 1 ??? metFORMIN (Glucophage) 500 MG tablet, 1/2 PO BID 2 weeks then 1 PO BID, Disp: 60 tablet, Rfl: 3 ??? metoclopramide (REGLAN) 5 MG tablet, Take 5 mg by mouth 3 (Three) Times a Day., Disp: , Rfl: ??? NIFEdipine CC (ADALAT CC) 60 MG 24 hr tablet, , Disp: , Rfl: ??? nystatin (MYCOSTATIN) 381962 UNIT/GM cream, nystatin 100,000 unit/gram topical cream, Disp: , Rfl: ??? omeprazole (priLOSEC) 40 MG capsule, TAKE 1 CAPSULE DAILY, Disp: 90 capsule, Rfl: 3 ??? pravastatin (PRAVACHOL) 20 MG tablet, Take 1 tablet by mouth Every Night., Disp: 90 tablet, Rfl: 1 ??? rOPINIRole (REQUIP) 1 MG tablet, TAKE 1 TABLET EVERY NIGHT, 60 MINUTES BEFORE BEDTIME, Disp: 90tablet, Rfl: 3 ??? topiramate (TOPAMAX) 50 MG tablet, Take [...] hs prn, Disp: 180 tablet, Rfl: 3 ALLERGIES Allergies Allergen Reactions ??? Iain Inhibitors Cough ??? Amlodipine Diarrhea ??? Beta Adrenergic Blockers Rash ??? Cyclobenzaprine Rash ??? Hydrochlorothiazide Rash ??? Hyzaar [Losartan Potassium-Hctz] Rash ??? Jardiance [Empagliflozin] Rash ??? Latex Rash ??? Losartan Rash ??? Penicillins Rash ??? Pioglitazone Rash ??? Spironolactone Rash FAMILY HISTORY: Family History Problem Relation Age of Onset ??? Kidney disease Mother ??? Hypertension Mother ??? Peripheral vascular disease Mother ??? Ulcers Mother ??? Kidney failure Mother ??? Lung disease Father ??? Kidney failure Maternal Grandmother ??? Diabetes Other type 2 ??? Colon cancer Neg Hx ??? Breast cancer Neg Hx ??? Ovarian cancer Neg Hx SOCIAL HISTORY Social History Socioeconomic History ??? Marital status: Tobacco Use ??? Smoking status: Never Smoker ??? Smokeless tobacco: Never Used Vaping Use ??? Vaping Use: Never used Substance and Sexual Activity ??? Alcohol use: No ??? Drug use: No ??? Sexual activity: Yes Partners: Male Comment: PHYSICAL EXAM BP 130/60 (BP Location: Right arm, Patient Position: Sitting, Cuff Size: Adult) Temp 97.6 ??F (36.4 ??C) (Temporal) Ht 157.5 cm (62 ) Wt 85 kg (187 lb 8 oz) LMP (LMP Unknown) BMI 34.29 kg/m?? Physical Exam Vitals and nursing note reviewed. Constitutional: Appearance: Normal appearance. She is well-developed. HENT: Head: Normocephalic and atraumatic. Nose: Nose normal. Mouth/Throat: Mouth: Mucous membranes are moist. Pharynx: Oropharynx is clear. Eyes: Pupils: Pupils are equal, round, and reactive to light. Cardiovascular: Rate and Rhythm: Normal rate and regular rhythm. Pulmonary: Effort: Pulmonary effort is normal. Breath sounds: Normal breath sounds. No wheezing or rales. Abdominal: General: Bowel sounds are normal. Palpations: Abdomen is soft. There is no mass. Tenderness: There is no abdominal tenderness. There is no guarding or rebound. Hernia: No hernia is present. Musculoskeletal: General: Normal range of motion. Cervical back: Normal range of motion and neck supple. Skin: General: Skin is warm and dry. Neurological: Mental Status: She is alert and oriented to person, place, and time. Cranial Nerves: No cranial nerve deficit. Psychiatric: Behavior: Behavior normal. Judgment: Judgment normal. Results Review: EXAMINATION: NM GASTRIC EMPTYING- 04/09/2018 INDICATION: Persistent nausea, vomiting and abdominal pain; R10.13-Epigastric pain; R11.0-Nausea TECHNIQUE: The patient ingested 1.1 mCi technetium sulfur colloid. Images were obtained over a 4 hour duration. COMPARISON: NONE FINDINGS: At 4 hours there is 80% gastric emptying. The T1 half is 2 hours. IMPRESSION: Delayed gastric emptying with 80% emptying at 4 hours and a T1 half of 2 hours. E: 04/09/2018 This report was finalized on 04/09/2018 4:[address] Nelson Desouza MD Latest Reference Range & Units 04/08/18 16:26 04/12/18 12:05 Hep A IgM Non-Reactive Non-Reactive Hep A Total Ab Negative Positive ! Hep B S Ab Non-Reactive Non-Reactive !: Data is abnormal Latest Reference Range & Units 07/26/21 15:02 Glucose 65 - 99 mg/dL 150 (H) Sodium 136 - 145 mmol/L 141 Potassium 3.5 - 5.2 mmol/L 4.2 CO2 22.0 - 29.0 mmol/L 28.0 Chloride 98 - 107 mmol/L 100 Anion Gap 5.0 - 15.0 mmol/L 13.0 Creatinine 0.57 - 1.00 mg/dL 0.65 BUN 8 - 23 mg/dL 18 BUN/Creatinine Ratio 7.0 - 25.0 27.7 (H) Calcium 8.6 - 10.5 mg/dL 9.9 eGFR >60.0 mL/min/1.73 98.5 Alkaline Phosphatase 39 - 117 U/L 157 (H) Total Protein 6.0 - 8.5 g/dL 7.2 ALT (SGPT) 1 - 33 U/L 63 (H) AST (SGOT) 1 - 32 U/L 53 (H) Total Bilirubin 0.0 - 1.2 mg/dL 0.4 Albumin 3.50 - 5.20 g/dL 4.20 Globulin gm/dL 3.0 A/G Ratio g/dL 1.4 GGT 5 - 36 U/L 44 (H) (H): Data is abnormally high ASSESSMENT / PLAN 1. Elevated liver enzymes -Serologic workup for hepatitides; Alpha-1 antitrypsin, LELAND, antimicrobial antibody, anti-smooth muscle antibody, ceruloplasmin, hemochromatosis mutation, ferritin, iron, mitochondrial antibody, soluble liver antigen, viral hepatitis panel, IgG, IgA, IgM -CBC, PT/INR, CMP 2. Fatty liver - Weight loss of 5% over the next 6 months with diet and exercise and maintain weight loss - Continue to follow with PCP for metabolic disorders 3. Gastroparesis - Discontinue Reglan; patient has been on consistently for 3 years and experiencing tardive dyskinesia symptoms - Dietary modifications for gastroparesis-- -Gastroparesis nutrition therapy discussed with patient: -Eat small, frequent meals. -Avoid foods that are high in fat. -Do not eat foods high in fiber or take fiber supplements or fiber bulking agents. -Do not eat foods that increase acid reflux such as acidic, spicy, fried or greasy foods. -Do not drink alcohol or smoke. -Do not drink carbonated beverages, as they increase bloating. -If symptoms are severe, semisolid foods or liquids may need to be your main food sources. Choose liquid nutritional supplements that have less than or equal to 2 g of fiber per serving. -Sit upright while eating and sit upright or walk after meals. -Do not lie down for 3 to 4 hours after eating to avoid reflux or regurgitation. Return in about 3 months (around 12/29/2021). I discussed the patients findings and my recommendations with patient Umesh Fermin APRN documented in this encounter Plan of Treatment Upcoming Encounters Date Type Department Care Team (Late st Contact Info) Description 03/13/2024 2:45 PM EST Office Visit [facility] CARDIOLOGY [address] [place] [address] [address] Pj Ace MD [address] [facility] [address] [place] [address] documented as of this encounter Procedures Procedure Name Priority Date/Time Associated Diagnosis Comments NICHOLSON FIBROSURE PLUS Routine 09/28/2021 11:53 AM EDT Elevated liver enzymes Abnormal finding of blood chemistry, unspecified Mixed hyperlipidemia documented in this encounter Results * (ABNORMAL) NICHOLSON Fibrosure (09/28/2021 11:53 AM EDT) Fibrosis Score (References) 0.34(H) 0.00 - 0.21 10/04/2021 11:09 AM EDT [facility] Fibrosis Stage (Reference) F1-F2 10/04/2021 11:09 AM EDT [facility] Steatosis Score (Reference) 0.85(H) 0.00 - 0.30 10/04/2021 11:09 AM EDT [facility] Steatosis Grade (Reference) Comment 10/04/2021 11:09 AM EDT [facility] Comment:S3 - Marked or Sever e Steatosis NICHOLSON Score (Reference) 0.75(H) 0.25 10/04/2021 11:09 AM EDT [facility] Nicholson Grade (Reference) Comment 10/04/2021 11:09 AM EDT [facility] Comment:N2 - NICHOLSON Height: (Reference) 62 in 10/04 11:09 AM EDT [facility] Weight: (Reference) 187 LBS 10/04 11:09 AM EDT [facility] Alpha 2-Macroglobulins, Qn 283(H) 110 - 276 mg/dL 10/04/2021 11:09 AM EDT [facility] Haptoglobin 211 37 - 355 mg/dL 10/04/2021 11:09 AM EDT [facility] Apolipoprotein A-1 143 116 - 209 mg/dL 10/04/2021 11:09 AM EDT [facility] Total Bilirubin 0.4 0.0 - 1.2 mg/dL 10/04/2021 11:09 AM EDT [facility] GGT 51 0 - 60 IU/L 10/04/2021 11:09 AM EDT [facility] ALT (SGPT) 80(H) 0 - 40 IU/L 10/04/2021 11:09 AM EDT [facility] AST (SGOT) P5P (Reference) 60(H) 0 - 40 IU/L 10/04/2021 11:09 AM EDT [facility] Cholesterol, Total (Reference) 209(H) 100 - 199 mg/dL 10/04/2021 11:09 AM EDT [facility] Glucose, Serum (Reference) 186(H) 65 - 99 mg/dL 10/04/2021 11:09 AM EDT [facility] Triglycerides 221(H) 0 - 149 mg/dL 10/04/2021 11:09 AM EDT [facility] Interpretations: (Reference) Comment 10/04/2021 11:09 AM EDT [facility] Comment: Quantitative results of 10 biochemicals in combination with age, gender, height, and weight, are analyzed using a computational algorithm to provide a quantitative surrogate marker (0.0-1.0) of liver fibrosis (Metavir F0-F4), hepatic steatosis (0.0-1.0, S0-S3), and Non-Alcoholic Steato- Hepatitis (NICHOLSON) (0.0-0.75, N0-N2). The absence of steatosis (S<0.38) precludes the diagnosis of NICHOLSON. Fibrosis marker: ??In a study of 171 Non-Alcoholic Fatty Liver Disease (NAFLD) patients where 23% had significant NAFLD fibrosis (Metavir F2-F4) and 11% had cirrhosis by liver biopsy, a fibrosis result of >0.3 yielded a sensitivity of 83% and a specificity of 78% for the detection of significant fibrosis(1). Steatosis Marker: ??In a population of 744 patients (583 HCV, 18 HBV, 69 NAFLD, and 74 alcoholic disease patients), where 36% had significant steatosis (>5%) on a liver biopsy, a steatosis score >0.5 had a sensitivity of 71% and a specificity of 72% for identification of significant steatosis(2). NICHOLSON marker: ??In a population of 257 NAFLD patients, where 62% had at least some NICHOLSON by liver biopsy, a prediction of NICHOLSON had a sensitivity of 88% for identifying NICHOLSON and a specificity of 50%(3). Fibrosis Scoring: Comment 11:09 AM [facility] Comment: ? <=0.21 = Stage F0 - No fibrosis 0.21 - 0.27 = Stage F0 - F1 0.27 - 0.31 = Stage F1 - Portal fibrosis 0.31 - 0.48 = Stage F1 - F2 0.48 - 0.58 = Stage F2 - Bridging fibrosis with few septa 0.58 - 0.72 = Stage F3 - Bridging fibrosis with many septa 0.72 - 0.74 = Stage F3 - F4 ?>0.74 = Stage F4 - Cirrhosis Steatosis Grading (Reference) Comment 10/04/2021 11:09 AM [facility] Comment: ?< 0.30 = S0 - No Steatosis 0.30 to 0.38 = S0 - S1 0.38 to 0.48 = S1 - Minimal Steatosis 0.48 to 0.57 = S1 - S2 0.57 to 0.67 = S2 - Moderate Steatosis 0.67 to 0.69 = S2 - S3 ?> 0.69 = S3 - Marked or Severe Steatosis Nicholson Scoring (Reference) Comment 10/04/2021 11:09 AM EDT [facility] Comment: 0.25 = N0 - Not NICHOLSON 0.50 = N1 - Borderline or probable NICHOLSON 0.75 = N2 - NICHOLSON Limitations: (Reference) Comment 10/04/2021 11:09 AM EDT [facility] Comment: NICHOLSON FibroSure is recommended for patients with suspected non- alcoholic fatty liver disease. ??It is not recommended for patients with other liver diseases. ??It is also not recommended in patients with Gilbert Disease, acute hemolysis, acute viral hepatitis, drug induced hepatitis, genetic liver disease, autoimmune hepatitis and/or extra-hepatic cholestasis. ??Any of these clinical situations may lead to inaccurate quantitative predictions of fibrosis. Comment (Reference) Comment 10/04 11:09 AM EDT [facility] Comment: This test was developed and its performance characteristics determined by [employer]. ??It has not been cleared or approved by the Food and Drug Administration. ??The FDA has determined that such clearance or approval is not necessary. For questions regarding this report please contact customer service at . References: 1. Alexandrea Zambrano al. Diagnostic Value of Biochemical Markers ?? (FibroTest) for the prediction of Liver Fibrosis in ?? patients with Non-Alcoholic Fatty Liver Disease. BMC ?? Gastroenterology 2006; 6:6. 2. Barbara Hartman. et al. The Diagnostic Value of Biomarkers ?? (Steato Test) for the Prediction of Liver Steatosis. ?? Comparative Hepatol. 2005; 4:10. 3. Barbara Hartman, Arabella Lechuga, et al. Diagnostic value ?? of biochemical markers (NICHOLSON TEST) for the prediction of ?? non alcohol steato hepatitis in patients with non- ?? alcoholic fatty liver disease. BMC Gastroenterology 2006; ?? 6:34 doi:10.1186/7871-004G-5-34. Blood Venipuncture / Unknown 09/28/2021 11:53 AM EDT 09/28/2021 11:54 AM EDT Narrative [facility] - 10/04/2021 11:09 AM EDT Performed at: ??[address] - [address] ??[id number] Auditor/Quality: Iesha Ro MD, Phone: ??[phone] Umesh Fermin APRN LAB BLOOD ORDERABLES Edit ed Result - Final [facility] [address] [place] [address], * Mitochondrial Antibodies, M2 (09/28/2021 11:53 AM EDT) Mitochondrial Ab <20.0 0.0 - 20.0 Units 09/30/2021 3:09 PM EDT [facility] Comment: ?Negative ?0.0 - 20.0 ?Equivocal ??20.1 - 24.9 ?Positive ? >24.9 Mitochondrial (M2) Antibodies are found in 90-96% of patients with primary biliary cirrhosis. Blood Venipuncture / Unknown 09/28/2021 11:53 AM EDT 09/28/2021 11:54 AM EDT Narrative [facility] - 09/30/2021 3:09 PM EDT Performed at: ??01 - [facility] [address] [place] [address] ??[id number] Auditor/Quality: Malik Hall PhD, Phone: ??[phone] Umesh Fermin APRN LAB BLOOD ORDERABLES Rosie l Result Performing Organization Address [facility]/ZIP Co de Phone Number [facility] [address] [place] [address], [place] [phone] * Iron (09/28/2021 11:53 AM EDT) Iron 93 27 - 139 ug/dL 09/30/2021 4:07 AM EDT [facility] Blood Venipuncture / Unknown 09/28/2021 11:53 AM EDT 09/28/2021 11:54 AM EDT Narrative [facility] - 09/30/2021 4:07 AM EDT Performed at: ?? - [address] ??[id number] Auditor/Quality: Malik Hall PhD, Phone: ??[phone] Umesh Fermin APRN LAB BLOOD ORDERABLES Rosie l Result Performing Organization Address [facility] Co de Phone Number [facility] [address] [place] [address], [place] [phone] * (ABNORMAL) Ferritin (09/28/2021 11:53 AM EDT) Ferritin 292(H) 15 - 150 ng/mL 09/30/2021 8:16 AM EDT [facility] Blood Venipuncture / Unknown 09/28/2021 11:53 AM EDT 09/28/2021 11:54 AM EDT Narrative [facility] - 09/30/2021 8:16 AM EDT Performed at: ?? - [address] ??[id number] Auditor/Quality: Malik Hall PhD, Phone: ??[phone] Umesh Fermin AUTOMOBILE REPAIR SERVICE ESTIMATOR LAB BLOOD ORDERABLES Rosie l Result Performing Organization Address [facility]/ZIP Co de Phone Number [facility] [address] [place] [address], [place] [phone] * (ABNORMAL) Comprehensive Metabolic Panel (09/28/2021 11:53 AM EDT) Pathologist [facility] Glucose 184(H) 65 - 99 mg/dL 09/30/2021 5:07 AM EDT [facility] BUN 19 8 - 27 mg/dL 09/30/2021 5:07 AM EDT [facility] Creatinine 0.62 0.57 - 1.00 mg/dL 09/30/2021 5:07 AM EDT [facility] EGFR Result 99 >59 mL/min/1.7 3 09/30/2021 5:07 AM EDT [facility] BUN/Creatinine Ratio 31(H) 12 - 28 09/30/2021 5:07 AM EDT [facility] Sodium 139 134 - 144 mmol/L 09/30/2021 5:07 AM EDT [facility] Potassium 4.8 3.5 - 5.2 mmol/L 09/30/2021 5:07 AM EDT [facility] Chloride 101 96 - 106 mmol/L 09/30/2021 5:07 AM EDT [facility] Total CO2 22 20 - 29 mmol/L 09/30/2021 5:07 AM EDT [facility] Calcium 9.5 8.7 - 10.3 mg/dL 09/30/2021 5:07 AM EDT [facility] Total Protein 7.1 6.0 - 8.5 g/dL 09/30/2021 5:07 AM EDT [facility] Albumin 4.2 3.8 - 4.8 g/dL 09/30/2021 5:07 AM EDT [facility] Globulin 2.9 1.5 - 4.5 g/dL 09/30/2021 5:07 AM EDT [facility] A/G Ratio 1.4 1.2 - 2.2 09/30/2021 5:07 AM EDT [facility] Total Bilirubin 0.3 0.0 - 1.2 mg/dL 09/30/2021 5:07 AM EDT [facility] Alkaline Phosphatase 151(H) 44 - 121 IU/L 09/30/2021 5:07 AM EDT [facility] AST (SGOT) 56(H) 0 - 40 IU/L 09/30/2021 5:07 AM EDT [facility] ALT (SGPT) 69(H) 0 - 32 IU/L 09/30/2021 5:07 AM EDT [facility] Blood Venipuncture / Unknown 09/28/2021 11:53 AM EDT 09/28/2021 11:54 AM EDT Narrative [facility] - 09/30/2021 5:07 AM EDT Performed at: ??[address] - [address] ??[id number] Auditor/Quality: Malik Hall PhD, Phone: ??[phone] Umesh Fermin AUTOMOBILE REPAIR SERVICE ESTIMATOR LAB BLOOD ORDERABLES Rosie l Result Performing Organization Address [facility] de Phone Number [facility] [address] [place] [address], [place] [phone] * Ceruloplasmin (09/28/2021 11:53 AM EDT) Ceruloplasmin 30.7 19.0 - 39.0 mg/dL 09/30/2021 8:16 AM EDT [facility] Blood Venipuncture / Unknown 09/28/2021 11:53 AM EDT 09/28/2021 11:54 AM EDT Narrative [facility] - 09/30/2021 8:16 AM EDT Performed at: ?? [address] ??[id number] Auditor/Quality: Malik Hall PhD, Phone: ??[phone] Umesh Fermin APRN LAB BLOOD ORDERABLES Rosie l Result Performing Organization Address [facility] de Phone Number [facility] [address] [place] [address], [place] [phone] * Anti-Smooth Muscle Antibody Titer (09/28/2021 11:53 AM EDT) Smooth Muscle Ab 10 0 - 19 Units 09/30/2021 3:09 PM EDT [facility] Comment: ? Negative ? 0 - 19 ? Weak positive ? 20 - 30 ? Moderate to strong positive ? >30 Actin Antibodies are found in 52-85% of patients with autoimmune hepatitis or chronic active hepatitis and in 22% of patients with primary biliary cirrhosis. Blood Venipuncture / Unknown 09/28/2021 11:53 AM EDT 09/28/2021 11:54 AM EDT Narrative [facility] - 09/30/2021 3:09 PM EDT Performed at: ??[address] - [address] ??[id number] Auditor/Quality: Malik Hall PhD, Phone: ??[phone] us Umesh Fermin APRN LAB BLOOD ORDERABLES Rosie patel Result [facility] [address] [place] [address], * Anti-microsomal Antibody (09/28/2021 11:53 AM EDT) Liver Fraction: 1.2 0.0 - 20.0 Units 09/30/2021 3:09 PM EDT [facility] Comment: ?Negative ?0.0 - 20.0 ?Equivocal ??20.1 - 24.9 ?Positive ? >24.9 LKM type 1 antibodies are detected in patients with autoimmune hepatitis type 2 and in up to 8% of patients with chronic HCV infection. Blood Venipuncture / Unknown 09/28/2021 11:53 AM EDT 09/28/2021 11:54 AM EDT Narrative [facility] - 09/30/2021 3:09 PM EDT Performed at: ??[address] ??[id number] Auditor/Quality: Malik Hall PhD, Phone: ??[phone] Umesh L Jeny AUTOMOBILE REPAIR SERVICE ESTIMATOR LAB BLOOD ORDERABLES Rosie l Result Performing Organization Address [facility] Co de Phone Number [facility] [address] [place] [address], * LELAND (09/28/2021 11:53 AM EDT) LELAND Direct Negative Negative 09/30/2021 4:10 PM EDT [facility] Blood Venipuncture / Unknown 09/28/2021 11:53 AM EDT 09/28/2021 11:54 AM EDT Narrative [facility] - 09/30/2021 4:10 PM EDT Performed at: ??[address] ??[id number] Auditor/Quality: Malik Hall PhD, Phone: ??[phone] Umesh Zapatacliffe AUTOMOBILE REPAIR SERVICE ESTIMATOR LAB BLOOD ORDERABLES Rosie l Result Performing Organization Address [facility] Co de Phone Number [facility] [address] [place] [address], [place] [phone] * Alpha - 1 - Antitrypsin (09/28/2021 11:53 AM EDT) A-1 Antitrypsin 127 101 - 187 mg/dL 09/30/2021 8:16 AM EDT [facility] Blood Venipuncture / Unknown 09/28/2021 11:53 AM EDT 09/28/2021 11:54 AM EDT Narrative [facility] - 09/30/2021 8:16 AM EDT Performed at: ??01 - [facility] [address], [place], [place] ??[id number] Auditor/Quality: Malik Hall PhD, Phone: ??[phone] us Umesh Fermin APRN LAB BLOOD ORDERABLES Rosie l Result [facility] [address] [place] [address], documented in this encounter Visit Diagnoses Diagnosis Elevated liver enzymes- Primary Other nonspecific abnormal serum enzyme levels Abnormal finding of blood chemistry, unspecified Mixed hyperlipidemia Mixed hyperlipidemia documented in this encounter Care Teams Saw Superintendent Relationship Specialty Start Date End Date Alex Davis MD [address] [facility] [place] [address] PCP - General Family Medicine 09/05/21 documented as of this encounter
--- OUTSIDE RECORDS SUMMARY | 2024-02-20 09:09 | XMS_ITS | Encounter Summary ---
[facility] Address [address] [place] [address] Care Team Providers Care Clerk Supervisor Name Role Phone Ev Augustin APRN Primary Care Provider [phone] Encounter Details Date Type Department Care Team (Late st Contact Info) Description 08/08/2021 Telephone [facility] [address] [facility] [place] [address] [place] [phone] Roc Tracey PA-C [address] [facility] [address] [place], [place] [id number] Social History Tobacco Use Types Packs/Day Years Used Date Smoking Tobacco: Never Smokeless Tobacco: Never Alcohol Use Standard Drinks/Week Comments No 0 (1 standard drink = 0.6 oz pur e alcohol) PHQ-2 Answer Date Recorded Retired Total Score 10 11/09/2020 Comments No Sex and Gender Information Value Date Recorded Sex Assigned at Not on file Legal Sex Female 10:25 AM EDT Gender Identity Not on file Sexual Orientation Not on file documented as of this encounter Miscellaneous Notes * Telephone Encounter - Emily Kaur - 08/08/2021 10:03 AM EDT PLEASE CALL PT SHE WAS RETURNING OUR CALL PTS NUMBER [phone] documented in this encounter Plan of Treatment Upcoming Encounters Date Type Department Care Team (Late st Contact Info) Description 03/13/2024 2:45 PM EST Office Visit [facility] CARDIOLOGY [address] [place] [address] [place] [address] Pj Ace MD [address] [place] [address] documented as of this encounter Visit Diagnoses Not on filedocumented in this encounter Care Teams Clerk Supervisor Relationship Specialty Start Date End Date Ev Augustin, RN NEW GRADUATE [address] [place] [address] PCP - General Internal Medicine 04/12/18 08/18/21 documented as of this encounter
--- OUTSIDE RECORDS SUMMARY | 2024-02-20 09:09 | XMS_ITS | Encounter Summary ---
[facility] [address] [place] [id number] Care Team Providers Care Organic Chemistry Teacher Name Role Phone Ev Augustin APRN Primary Care Provider [phone] Reason for Referral * Health Education (Routine) - Closed Specialty Diagnoses / Procedures Referred By Contact Referred To Contact Dietitian / Diabetes Services Diagnoses Controlled type 2 diabetes mellitus without complication, without long-term current use of insulin Roc Tracey PA-C [address] [address] Phone: tel: fax: [facility] DIABETES ED 2101 COUNTS INCLUDE 234 BEDS AT [facility] [address] [place] [address] Phone: tel: fax: Referral ID Status Reason Start Date Expiration Date V isits Requested Visits Authorized [id number] Closed Specialty Services Required 12/29/2020 12/29/2021 1 1 Reason for Visit * Reason Comments Follow-up DM 2 Encounter Details Date Type Department Care Team (Late st Contact Info) Description 12/29/2020 12:00 PM EDT Office Visit [facility] ENDOCRINOLOG[facility] [address] [phone] Roc Tracey PA-C [address] [address] Controlled type 2 diabetes mellitus without complication, without long-term current use of insulin (Primary Dx) Social History Tobacco Use Types Packs/Day Years [...] Sign Reading Time Taken Comments Blood Pressure 162/90 12/29/2020 12:02 PM EDT Pulse 55 12/29/2020 12:02 PM EDT Temperature - - Respiratory Rate - - Oxygen Saturation 97% 12/29/2020 12: 02 PM EDT Inhaled Oxygen Concentration - - Weight 86.1 kg (189 lb 12.8 oz) 021 12:02 PM EDT Height 157.5 cm (5' 2.01 ) 12/29/2020 1 2:02 PM EDT Body Mass Index 34.7 12/29/2020 12:02 PM EDT documented in this encounter Progress Notes * Roc Tracey PA-C - 12/29/2020 12:00 PM EDT Chief Complaint F/u for Diabetes Mellitus. HPI Gertrudis Gonzalez is a 65 y.o. female with chronic back pain and HTN- on multiple antihypertensives followed by cardiology in [place], who is here today for f/u of Diabetes Mellitus type 2. The initial diagnosis of diabetes was made approximately 2016. She continues to have episodes where she gets shaky and confused and symptoms resolve with soda or cake. She has checked her BG when this happens it is typically anywhere from 150 to 200. Feels like sometimes it happens after she takes glipizide in the morning (though sugar is not low at the time),but does not have the symptoms after the evening glipizide. BG 98 (94 per her meter) during visit today and she is asymptomatic. BG was 118 this morning and she was asymptomatic as well. Had 2 steroid injections last week. A1C- 7.8 (08/17/2020), 7.4 (01/16/2020), 8.5 (10/28/2019), 6.8 (04/18/2019), 7.4 (01/13/19), 7.4 (10/11/18), 7.6 (07/15/18), 7.2 (04/08/18), 7.7 (12/14/17), 6.7 (09/12/17), 8.9 (05/2017) Diabetic complications: gastroparesis followed by GI at [facility] Eye exam current (within one year): [facility] summer 2019, [facility] Foot care and dental care: discussed Current diabetic medications include: Glipizide XL 5 mg qAM Januvia 100mg daily - takes in the morning Lantus 40 units qHS ACEI/ARB: losartan-hctz Statin: pravastatin 10 mg, did not tolerate crestor 5mg, lipitor 10 mg, Repatha and Praluent not covered by insurance. Past medications: metformin (???caused blurred vision, went away when stopped taking metformin), invokana (insurance didn't cover but thinks this controlled glucose better), actos (rash), jardiance (yeast infections) No GLP1 due to gastroparesis Diabetic Monitoring - BG log reviewed- she is testing BID, AM BG 100-200s, in the evening frequently 200s, no hypoglycemia The following portions of the patient's history were reviewed and updated by me as appropriate: allergies, current medications, past family history, past social history, past surgical history and problem list. Past Medical History: Diagnosis Date ??? Anxiety ??? Benign essential hypertension ??? Cervical disc disorder ??? Chronic pain disorder ??? Colon polyps ??? Complication of device ??? Decreased libido ??? Diabetes mellitus (CMS/HCC) ??? Dizziness ??? Encounter for long-term (current) use of medications ??? Extremity pain ??? Fatigue ??? Hip pain ??? History of alopecia ??? History of backache ??? History of colonoscopy Fiberoptic ??? History of diabetes mellitus ??? History of insomnia ??? History of mastoiditis ??? History of migraine headaches ??? History of urinary stone ??? Infection of kidney ??? Insomnia ??? Joint pain ??? Kidney infection ??? Low back pain ??? Lumbar radiculopathy ??? Lumbar radiculopathy ??? Lumbosacral disc disease ??? Migraine ??? Myofascial pain syndrome ??? Neck pain ??? Palpitations ??? Sleep apnea ??? Spinal cord stimulator status ??? Stress reaction, emotional ??? Urinary incontinence ??? Urinary tract infection ??? Visit for screening mammogram Description: 11/27/2008 ??? Vitamin D deficiency Medications Current Outpatient Medications: ??? albuterol sulfate HFA 108 (90 Base) MCG/ACT inhaler, Inhale 2 puffs Every 6 (Six) Hours As Needed for Wheezing or Shortness of Air., Disp: 18 g, Rfl: 11 ??? bethanechol (URECHOLINE) 50 MG tablet, Take 50 mg by mouth 3 (Three) Times a Day., Disp: , Rfl: ??? bisoprolol (ZEBeta) 5 MG tablet, Take 5 mg by mouth Daily., Disp: , Rfl: ??? ciclopirox (LOPROX) 0.77 % gel, , Disp: , Rfl: ??? Continuous Blood Gluc Nike Athlete (FreeStyle Nevaeh 2 Center Line) device, 1 Device Continuous., Disp: 1each, Rfl: 0 ??? Continuous Blood Gluc Sensor (FreeStyle Nevaeh 2 Sensor) misc, 1 each Every 14 (Fourteen) Days.,Disp: 6 each, Rfl: 3 ??? cyclobenzaprine (FLEXERIL) 10 MG tablet, Take [...] Week., Disp: 42.5 g, Rfl: 5 ??? furosemide (LASIX) 20 MG tablet, Take 20 mg by mouth 2 (Two) Times a Day As Needed., Disp: , Rfl: ??? glipizide (GLUCOTROL) 10 MG tablet, Take 1 tablet by mouth 2 (Two) Times a Day Before Meals. Must be taken AC to avoid hypoglycemia, Disp: 180 tablet, Rfl: 1 ??? insulin glargine (LANTUS, SEMGLEE) 100 UNIT/ML injection, Inject 32 Units under the skin into the appropriate area as directed Daily., Disp: , Rfl: ??? Insulin Pen Needle 32G X 4 MM [facility], Use daily with insulin, Disp: 100 each, Rfl: 3 ??? Januvia 100 MG tablet, TAKE 1 TABLET DAILY, Disp: 90 tablet, Rfl: 3 ??? Lantus SoloStar 100 UNIT/ML injection pen, , Disp: , Rfl: ??? losartan (COZAAR) 100 MG tablet, Take 100 mg by mouth Daily., Disp: , Rfl: ??? meloxicam (MOBIC) 7.5 MG tablet, , Disp: , Rfl: ??? metoclopramide (REGLAN) 5 MG tablet, Take 5 mg by mouth 3 (Three) Times a Day., Disp: , Rfl: ??? NIFEdipine CC (ADALAT CC) 60 MG 24 hr tablet, , Disp: , Rfl: ??? nystatin (MYCOSTATIN) 508340 UNIT/GM cream, nystatin 100,000 unit/gram topical cream, Disp: , Rfl: ??? omeprazole (priLOSEC) 40 MG capsule, TAKE 1 CAPSULE DAILY, Disp: 90 capsule, Rfl: 3 ??? pravastatin (PRAVACHOL) 10 MG tablet, Take 1 tablet by mouth Every Night., Disp: 90 tablet, Rfl: 3 ??? rOPINIRole (REQUIP) 1 MG tablet, TAKE [...] hs prn, Disp: 180 tablet, Rfl: 3 ??? Insulin Disposable Pump (V-Go 30) kit, Inject 1 Units under the skin into the appropriate area as directed Daily., Disp: 90 each, Rfl: 1 ??? insulin lispro (HumaLOG) 100 UNIT/ML injection, Use up to 80 units daily via v-go device, Disp:60 mL, Rfl: 1 Review of Systems Review of Systems Constitutional: Positive for fatigue. Negative for chills, fever and unexpected weight change. HENT: Negative for ear pain, hearing loss, nosebleeds, rhinorrhea and sore throat. Eyes: Negative for pain, discharge, redness and itching. Respiratory: Negative for cough, shortness of breath and wheezing. Cardiovascular: Negative for chest pain and palpitations. Gastrointestinal: Negative for abdominal pain, blood in stool, constipation and diarrhea. Endocrine: Negative for cold intolerance, heat intolerance and polydipsia. Genitourinary: Negative for dysuria, frequency, hematuria, pelvic pain, vaginal bleeding and vaginal discharge. Musculoskeletal: Positive for back pain. Negative for arthralgias, gait problem, joint swelling andmyalgias. Skin: Negative for rash. Allergic/Immunologic: Negative. Neurological: Negative for dizziness, syncope, weakness, numbness and headaches. Hematological: Negative for adenopathy. Does not bruise/bleed easily. Psychiatric/Behavioral: Negative for sleep disturbance and suicidal ideas. The patient is not nervous/anxious. Physical Exam BP 162/90 Pulse 55 Ht 157.5 cm (62.01 ) Wt 86.1 kg (189 lb 12.8 oz) LMP (LMP Unknown) SpO2 97% BMI 34.70 kg/m?? Body mass index is 34.7 kg/m??. Physical Exam Constitutional: She is oriented to person, place, and time. She appears well- developed. No distress. AAOx3 HENT: Head: Normocephalic. Right Ear: External ear normal. Left Ear: External ear normal. Mouth/Throat: No oropharyngeal exudate. Eyes: Conjunctivae and lids are normal. Right eye exhibits no discharge. Left eye exhibits no discharge. Right pupil is reactive. Left pupil is reactive. Neck: No JVD present. No tracheal deviation present. No thyroid mass and no thyromegaly present. Cardiovascular: Normal rate, regular rhythm and normal heart sounds. No murmur heard. Pulmonary/Chest: Effort normal and breath sounds normal. No respiratory distress. She has no wheezes. Abdominal: Soft. Bowel sounds are normal. There is no abdominal tenderness. Musculoskeletal: No tenderness. Lymphadenopathy: She has no cervical adenopathy. Neurological: She is alert and oriented to person, place, and time. Skin: Skin is warm and dry. No rash noted. She is not diaphoretic. No erythema. Psychiatric: Her speech is normal and behavior is normal. Judgment and thought content normal. Labs and Imaging Lab Results Component Value Date HGBA1C 8.1 12/29/2020 HGBA1C 7.8 08/17/2020 HGBA1C 7.3 05/17/2020 Office Visit on 12/29/2020 Component Date Value Ref Range Status ??? Glucose 12/29/2020 98 70 - 130 mg/dL Final ??? Hemoglobin A1C 12/29/2020 8.1 % Final Lab on 12/02/2020 Component Date Value Ref Range Status ??? Ferritin 12/02/2020 293.60* 13.00 - 150.00 ng/mL Final ??? Iron 12/02/2020 71 37 - 145 mcg/dL Final ??? Iron Saturation 12/02/2020 18* 20 - 50 % Final ??? Transferrin 12/02/2020 270 200 - 360 mg/dL Final ??? TIBC 12/02/2020 402 298 - 536 mcg/dL Final ??? WBC 12/02/2020 6.30 3.40 - 10.80 10*3/mm3 Final ??? RBC 12/02/2020 5.12 3.77 - 5.28 10*6/mm3 Final ??? Hemoglobin 12/02/2020 14.8 12.0 - 15.9 g/dL Final ??? Hematocrit 12/02/2020 45.2 34.0 - 46.6 % Final ??? RDW 12/02/2020 13.4 12.3 - 15.4 % Final ??? MCV 12/02/2020 88.2 79.0 - 97.0 fL Final ??? MCH 12/02/2020 29.0 26.6 - 33.0 pg Final ??? MCHC 12/02/2020 32.8 31.5 - 35.7 g/dL Final ??? MPV 12/02/2020 8.0 6.0 - 12.0 fL Final ??? Platelets 12/02/2020 248 140 - 450 10*3/mm3 Final ??? Neutrophil % 12/02/2020 63.9 42.7 - 76.0 % Final ??? Lymphocyte % 12/02/2020 32.5 19.6 - 45.3 % Final ??? Monocyte % 12/02/2020 3.6* 5.0 - 12.0 % Final ??? Neutrophils, Absolute 12/02/2020 4.00 1.70 - 7.00 10*3/mm3 Final ??? Lymphocytes, Absolute 12/02/2020 2.00 0.70 - 3.10 10*3/mm3 Final ??? Monocytes, Absolute 12/02/2020 0.20 0.10 - 0.90 10*3/mm3 Final Microalbumin / Creatinine Urine Ratio - Urine, Clean Catch (05/17/2020 13:21) TSH (05/17/2020 13:21) Lipid Panel (05/17/2020 13:21) Comprehensive Metabolic Panel (05/17/2020 13:21) Assessment / Plan Diagnoses and all orders for this visit: 1. Controlled type 2 diabetes mellitus without complication, without long-term current use of insulin ([facility]) (Primary) - POC Glucose, Blood - POC Glycosylated Hemoglobin (Hb A1C) - Insulin Disposable Pump (V-Go 30) kit; Inject 1 Units under the skin into the appropriate area asdirected Daily. Dispense: 90 each; Refill: 1 - insulin lispro (HumaLOG) 100 UNIT/ML injection; Use up to 80 units daily via v-go device Dispense: 60 mL; Refill: 1 - Ambulatory Referral to Diabetic Education Diabetes Mellitus 2 is under inadequate control. -A1c 8.1 -choice of medications is limited- intolerant to metformin, actos (rash), no GLP1 agonist due to gastroparesis, did not tolerate jardiance -dc glipizide -continue januvia 100mg daily -dc lantus -start v-go 30 with 5 clicks before meals -referral to dm education for v-go start -labs were done 05/2020, foot exam due 12/2020, eye exam should be updated yearly 1. Diet: 3-4 carb servings per meal for females, 4-5 carb servings per meal for males Spread carb intake throughout the day Increase lean protein and vegetable intake Avoid sugary drinks and processed carbs including crackers, cookies, cakes 2. Exercise: Recommend at least 30 minutes of exercise daily, at least 5 days per week. Increase exercise gradually. 3. Blood Glucose Goal: Blood glucose goal <150 fasting, <180 2 hr postprandial 4. Microalbumin due 05/2020 5. 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 , annual eye examinations at Ophthalmology discussed, dental hygiene discussed and foot care reviewed., home glucose monitoring emphasized, all medications, side effects and compliance discussed carefully and Hypoglycemia management and prevention reviewed. Reviewed ???ABCs??? of diabetes management (respective goals in parentheses): A1C (<7), blood pressure (<130/80), and cholesterol (LDL <100, if CVD <70). Hyperlipidemia -praluent/repatha not covered by insurance -on pravastatin 10 mg - she reports she will be switched to crestor soon -lipid panel was updated 05/2020 There are no Patient Instructions on file for this visit. Follow up: Return in about 3 months (around 03/30/2021). Discussed the nature of the disease including, risks, complications, implications, management, safeand proper use of medications. Encouraged therapeutic lifestyle changes including low calorie diet with plenty of fruits and vegetables, daily exercise, medication compliance, and keeping scheduled fo llow up appointments with me and any other providers. Encouraged patient to have appointment for complete physical, fasting labs, appropriate screenings, and immunizations on an annual basis. Roc Tracey PA-C documented in this encounter Plan of Treatment Upcoming Encounters Date Type Department Care Team (Late st Contact Info) Description 03/13/2024 2:45 PM EST Office Visit [facility] CARDIOLOGY [address] [place] [address] Pj Ace MD [address] [facility] [address] [place] [address] Scheduled Referrals Name Type Priority Associated Diagnoses Order Schedule Ambulatory Referral to Diabetic Education Outpatient Referral Routine Controlled type 2 diabetes mellitus without complication, without long-term current use of insulin Ordered: 12/29/2020 documented as of this encounter Procedures Procedure Name Priority Date/Time Associated Diagnosis Comments POCT GLUCOSE, BLD (NON STRIP) Routine 12/29/2020 12:10 PM EDT Controlled type 2 diabetes mellitus without complication, without long-term current use of insulin POCT GLYCOSYLATED HEMOGLOBIN (HGB A1C) Routine 12/29/2020 12:10 PM EDT Controlled type 2 diabetes mellitus without complication, without long-term current use of insulin documented in this encounter Results * POC Glycosylated Hemoglobin (Hb A1C) (12/29/2020 12:10 PM EDT) Hemoglobin A1C 8.1 % [facility] Blood 12/29/2020 12:1 0 PM EDT us Vedrana Knezevic PA-C POINT OF CARE TEST ORDERAB LES Final Result [facility]
[address] [place] [id number], * POC Glucose, Blood (12/29/2020 12:10 PM EDT) Glucose 98 70 - 130 mg/dL Blood 12/29/2020 12:1 0 PM EDT us Vedrana Knezevic PA-C POINT OF CARE TEST ORDERAB LES Final Result documented in this encounter Visit Diagnoses Diagnosis Controlled type 2 diabetes mellitus without complication, without long-term current use of insulin- Primary documented in this encounter Care Teams Organic Chemistry Teacher Relationship Specialty Start Date End Date vE Augustin APRN [address] [place] [address] PCP - General Internal Medicine 04/12/18 08/18/21 documented as of this encounter
--- OUTSIDE RECORDS SUMMARY | 2024-02-20 09:09 | XMS_ITS | Encounter Summary ---
[facility] Address [address] [place] [id number] Care Team Providers Care Technical Spec Name Role Phone Ev Augustin APRN Primary Care Provider [phone] Reason for Visit * Reason Comments Follow-up DM 2 Encounter Details Date Type Department Care Team (Late st Contact Info) Description 04/25/2021 1:00 PM EST Office Visit [facility] ENDOCRINOLOGY [address] [facility] [place] [address] [place] [phone] Roc Tracey PA-C [address] [facility] [place] [address] [place] [address] Uncontrolled type 2 diabetes mellitus with hyperglycemia (Primary Dx); Mixed hyperlipidemia Social History Tobacco Use Types [...] Sign Reading Time Taken Comments Blood Pressure 122/72 04/25/2021 1:03 PM EST Pulse 83 04/25/2021 1:03 PM EST Temperature - - Respiratory Rate - - Oxygen Saturation 94% 04/25/2021 1:03 PM EST Inhaled Oxygen Concentration - - Weight 84.6 kg (186 lb 6.4 oz) 04/25/2021 1:03 P M EST Height 157.5 cm (5' 2.01 ) 04/25/2021 1:03 PM ES T Body Mass Index 34.08 04/25/2021 1:03 PM EST documented in this encounter Patient Instructions * Patient Instructions* Roc Tracey PA-C - 04/25/2021 1:00 PM EST Continue Januvia Stay off glipizide Insulin dosing: Basal insulin - Resume Lantus at 25 units daily Meal Insulin- Start Humalog 10-12 units before meals. When pre-meal sugar is above 150 add extra Humalog based on chart below. Correction insulin (add to meal insulin) 0 unit if Blood sugar (BS) less than 150 2 unit if BS 150 - 199 4 units if BS 200 - 249 6 units if BS 250 - 299 8 units if BS 300 - 349 10 units if BS 350-399 12 units if BS >400 documented in this encounter Progress Notes * Roc Tracey PA-C - 04/25/2021 1:00 PM EST Chief Complaint F/u for Diabetes Mellitus. JONA Gonzalez is a 65 y.o. female with chronic back pain and HTN- on multiple antihypertensives followed by cardiology in [place], who is here today for f/u of Diabetes Mellitus type 2. The initial diagnosis of diabetes was made approximately 2015. She continues to have episodes where she gets shaky and confused and symptoms resolve with soda, cake or candy. She sometimes feels this way when her sugar is 300. Symptoms were more frequent when she was using V-GO. Much less frequent off V-GO. Stopped using V-GO. [place] like she constantly felt bee stings and had swelling and redness of the skin. Resolved after stopping V-GO. A1C- 9.8 (04/25/2021), 7.8 (08/17/2020), 7.4 (01/16/2020), 8.5 (10/28/2019), 6.8 (04/18/2019), 7.4 (01/13/19), 7.4 (10/11/18), 7.6 (07/15/18), 7.2 (04/08/18), 7.7 (12/14/17), 6.7 (09/12/17), 8.9 (05/2017) Diabetic complications: gastroparesis followed by GI at [facility] Eye exam current (within one year): utd August 2020, [facility] eye care Foot care and dental care: discussed Current diabetic medications include: Januvia 100mg daily - takes in the morning ACEI/ARB: losartan-hctz Statin: pravastatin 10 mg, did not tolerate crestor 5mg, lipitor 10 mg, Repatha and Praluent not covered by insurance. Past medications: metformin (???caused blurred vision, went away when stopped taking metformin), invokana (insurance didn't cover but thinks this controlled glucose better), actos (rash), jardiance (yeast infections) No GLP1 due to gastroparesis, glipizide Diabetic Monitoring - BG log reviewed- she is testing 1-3x/day, BG mostly in the 200s The following portions of the patient's history were reviewed and updated by me as appropriate: allergies, current medications, past family history, past social history, past surgical history and problem list. Past Medical History: Diagnosis Date ??? Anxiety ??? Benign essential hypertension ??? Cervical disc disorder ??? Chronic pain disorder ??? Colon polyps ??? Complication of device ??? Decreased libido ??? Diabetes mellitus (HCC) ??? Dizziness ??? Encounter for long-term (current) [...] As Needed., Disp: , Rfl: ??? Insulin Pen Needle 32G X 4 MM misc, Use daily with insulin, Disp: 100 each, [...] , Disp: , Rfl: ??? nystatin (MYCOSTATIN) 494285 UNIT/GM cream, nystatin 100,000 unit/gram topical cream, [...] 3 ??? traMADol (ULTRAM) 50 MG tablet, TAKE 1 TABLET EVERY 8 HOURS NEEDED FOR MODERATE PAIN, Disp: 90 tablet, Rfl: 2 ??? traZODone (DESYREL) 50 MG tablet, Take 1 to 2 tabs po hs prn, Disp: 180 tablet, Rfl: 3 ??? Insulin Glargine (LANTUS SOLOSTAR) 100 UNIT/ML injection pen, Inject 25 Units under the skin into the appropriate area as directed Daily., Disp: 27 mL, Rfl: 1 ??? Insulin Lispro, 1 Unit Dial, (HumaLOG KwikPen) 100 UNIT/ML solution pen- injector, Take 10-12 units before meals, correction 2:50 >150, MDD 40U, Disp: 36 mL, Rfl: 1 Review of Systems Review [...] patient is not nervous/anxious. Physical Exam BP 122/72 Pulse 83 Ht 157.5 cm (62.01 ) Wt 84.6 kg (186 lb 6.4 oz) LMP (LMP Unknown) HrM161% BMI 34.08 kg/m?? Body mass index is 34.08 kg/m??. Physical Exam Constitutional: She is oriented to person, place, and time. She appears well- developed. No distress. HENT: Head: Normocephalic. Right Ear: External ear [...] is no abdominal tenderness. Musculoskeletal: No tenderness. Gertrudis had a diabetic foot exam performed today. During the foot exam she had a monofilament test performed. Neurological Sensory Findings - Altered hot/cold left ankle/foot discrimination.Unaltered hot/cold right ankle/foot discrimination. Altered sharp/dull left ankle/foot discrimination. Unaltered sharp/dull right ankle/foot discrimination. Left ankle/foot altered proprioception. No right ankle/foot alt ered proprioception Vascular Status - Her right foot exhibits normal foot vasculature and no edema. Her left foot exhibits normal foot vasculature and no edema. Skin Integrity - Her right foot skin is intact. She has no right foot onychomycosis, no right foot ulcer and non-callous right foot.Her left foot skin is intact. She has no left foot onychomycosis, no left foot ulcer and non- callous left foot.. Lymphadenopathy: She has no cervical adenopathy. Neurological: She is alert and oriented to person, place, and time. Skin: Skin is warm and dry. No rash noted. She is not diaphoretic. No erythema. Psychiatric: Her speech is normal and behavior is normal. Thought content normal. Labs and Imaging Lab Results Component Value Date HGBA1C 9.8 04/25/2021 HGBA1C 8.1 12/29/2020 HGBA1C 7.8 08/17/2020 Office Visit on 04/25/2021 Component Date Value Ref Range Status ??? Glucose 04/25/2021 382* 70 - 130 mg/dL Final ??? Hemoglobin A1C 04/25/2021 9.8 % Final ??? Lot Number 04/25/2021 [id number] Final ??? Expiration Date 04/25/2021 [id number] Final Microalbumin / Creatinine Urine Ratio - Urine, Clean Catch (05/17/2020 13:21) TSH (05/17/2020 13:21) Lipid Panel (05/17/2020 13:21) Comprehensive Metabolic Panel (05/17/2020 13:21) Assessment / Plan Diagnoses and all orders for this visit: 1. Uncontrolled type 2 diabetes mellitus with hyperglycemia (HCC) (Primary) - POC Glucose, Blood - POC Glycosylated Hemoglobin (Hb A1C) - Insulin Lispro, 1 Unit Dial, (HumaLOG KwikPen) 100 UNIT/ML solution pen- injector; Take 10-12 units before meals, correction 2:50 >150, MDD 40U Dispense: 36 mL; Refill: 1 - Microalbumin / Creatinine Urine Ratio - Urine, Clean Catch - Comprehensive Metabolic Panel - Lipid Panel - TSH - Insulin Glargine (LANTUS SOLOSTAR) 100 UNIT/ML injection pen; Inject 25 Units under the skin intothe appropriate area as directed Daily. Dispense: 27 mL; Refill: 1 2. Mixed hyperlipidemia - Comprehensive Metabolic Panel - Lipid Panel Diabetes Mellitus 2 is under poor control. -A1c 9.8, up from 8.1 last visit -BG mostly in the 200s -choice of medications is limited- intolerant to metformin, actos (rash), no GLP1 agonist due to gastroparesis, did not tolerate jardiance -stay off glipizide -continue januvia 100mg daily -resume lantus at 25 u daily -start humalog 10-12 u -pt is on 3-4 insulin injections per day and is compliance with BG checks therefore CGM is medically necessary for her - sending Dexcom through DME -labs updated today, foot exam updated today, eye exam updated 08/2020 1. Diet: 3-4 carb servings per meal [...] 05/2020 5. Education performed during this visit: long-term diabetic complications discussed. , annual eye examinations [...] be switched to crestor soon -lipid panel today Patient Instructions Continue Januvia Stay off glipizide Insulin dosing: Basal insulin - Resume Lantus at 25 units daily Meal Insulin- Start Humalog 10-12 units before meals. When pre-meal sugar is above 150 add extra Humalog based on chart below. Correction insulin (add to meal insulin) 0 unit if Blood sugar (BS) less than 150 2 unit if BS 150 - 199 4 units if BS 200 - 249 6 units if BS 250 - 299 8 units if BS 300 - 349 10 units if BS 350-399 12 units if BS >400 Follow up: Return in about 3 months (around 07/24/2021). Discussed the nature of the disease including, [...] [facility] CARDIOLOGY [address] [place] [address] [place] [address] Pj Ace MD [address] [facility] [address] [place] [address] documented as of this encounter Procedures Procedure Name Priority Date/Time Associated Diagnosis Comments MICROALBUMIN / CREATININE URINE RATIO Routine 04/25/2021 1:43 PM EST Uncontrolled type 2 diabetes mellitus with hyperglycemia TSH Routine 04/25/2021 1:43 PM EST Uncontrolled type 2 diabetes mellitus with hyperglycemia LIPID PANEL Routine 04/25/2021 1:43 PM EST Uncontrolled type 2 diabetes mellitus with hyperglycemia Mixed hyperlipidemia COMPREHENSIVE METABOLIC PANEL Routine 04/25/2021 1:43 PM EST Uncontrolled type 2 diabetes mellitus with hyperglycemia Mixed hyperlipidemia POCT GLUCOSE, BLD (NON STRIP) Routine 04/25/2021 1:14 PM EST Uncontrolled type 2 diabetes mellitus with hyperglycemia POCT GLYCOSYLATED HEMOGLOBIN (HGB A1C) Routine 04/25/2021 1:14 PM EST Uncontrolled type 2 diabetes mellitus with hyperglycemia documented in this encounter Results * TSH (04/25/2021 1:43 PM EST) TSH 2.280 0.270 - 4.200 uIU/mL 04/25/2021 11:38 PM EST [facility] Blood Venipuncture / Unknown 04/25/2021 1:43 PM EST 04/25/2021 1:43 PM EST Roc Tracey PA-C LAB BLOOD ORDERABLES Final Result [facility]
[address] [place] [address], * (ABNORMAL) Lipid Panel (04/25/2021 1:43 PM EST) [facility] Total Cholesterol 212(H) 0 - 200 mg/dL 04/25/2021 11:22 PM EST [facility] Triglycerides 198(H) 0 - 150 mg/dL 04/25/2021 11:22 PM EST [facility] HDL Cholesterol 39(L) 40 - 60 mg/dL 04/25/2021 11:22 PM EST [facility] LDL Cholesterol 137(H) 0 - 100 mg/dL 04/25/2021 11:22 PM EST [facility] VLDL Cholesterol 36 5 - 40 mg/dL 04/25/2021 11:22 PM EST [facility] LDL/HDL Ratio 3.42 04/25/2021 11:22 PM EST [facility] Blood Venipuncture / Unknown 04/25/2021 1:43 PM EST 04/25/2021 1:43 PM EST Narrative [facility] - 04/25/2021 11:22 PM EST Cholesterol Reference Ranges (U.S. Department of Health [...] ? 160-189 mg/dL Very High ?>189 mg/dL Roc Tracey PA-C LAB BLOOD ORDERABLES Final Result [facility]
[address] [place] [address], * (ABNORMAL) Comprehensive Metabolic Panel (04/25/2021 1:43 PM EST) Glucose 359(H) 65 - 99 mg/dL 04/25/2021 11:22 PM EST [facility] BUN 21 8 - 23 mg/dL 04/25/2021 11:22 PM EST [facility] Creatinine 0.81 0.57 - 1.00 mg/dL 04/25/2021 11:22 PM EST [facility] Sodium 137 136 - 145 mmol/L 04/25/2021 11:22 PM EST [facility] Potassium 4.1 3.5 - 5.2 mmol/L 04/25/2021 11:22 PM EST [facility] Chloride 98 98 - 107 mmol/L 04/25/2021 11:22 PM EST [facility] CO2 28.7 22.0 - 29.0 mmol/L 04/25/2021 11:22 PM EST [facility] Calcium 10.1 8.6 - 10.5 mg/dL 04/25/2021 11:22 PM [facility] Total Protein 7.6 6.0 - 8.5 g/dL 04/25/2021 11:22 PM [facility] Albumin 4.20 3.50 - 5.20 g/dL 04/25/2021 11:22 PM [facility] ALT (SGPT) 56(H) 1 - 33 U/L 04/25/2021 11:22 PM [facility] AST (SGOT) 41(H) 1 - 32 U/L 04/25/2021 11:22 PM [facility] Alkaline Phosphatase 173(H) 39 - 117 U/L 04/25/2021 11:22 PM [facility] Total Bilirubin 0.5 0.0 - 1.2 mg/dL 04/25/2021 11:22 PM [facility] eGFR Non Amer 71 >60 mL/min/1.7 3 04/25/2021 11:22 PM [facility] Globulin 3.4 gm/dL 04/25/2021 11:22 PM [facility] A/G Ratio 1.2 g/dL 04/25/2021 11:22 PM [facility] BUN/Creatinine Ratio 25.9(H) 7.0 - 25.0 04/25/2021 11:22 PM [facility] Anion Gap 10.3 5.0 - 15.0 mmol/L 04/25/2021 11:22 PM [facility] Blood Venipuncture / Unknown 04/25/2021 1:43 PM EST 04/25/2021 1:43 PM [facility] - 04/25/2021 11:22 PM EST GFR Normal >60 Chronic Kidney Disease <60 Kidney Failure <15 us Roc Tracey PA-C LAB BLOOD ORDERABLES Final Result [facility]
[address] [place] [address], [place] [phone] * Microalbumin / Creatinine Urine Ratio - Urine, Clean Catch (04/25/2021 1:43 PM EST) [facility] Microalbumin/C reatinine Ratio 18.1 mg/g 04/26/2021 12:19 AM EST [facility] Creatinine, Urine 99.3 mg/dL 04/26/2021 12:19 AM EST [facility] Microalbumin, Urine 1.8 mg/dL 04/26/2021 12:19 AM EST [facility] Urine Urine specimen obtained by clean catch procedure / Unknown Collection / Unknown 04/25/2021 1:43 PM EST 04/25/2021 1:43 PM EST Roc Oliviaevic PA-C URINE ORDERABLES Final Res ult [facility]
[address] [place] [address], [place] [phone] * POC Glycosylated Hemoglobin (Hb A1C) (04/25/2021 1:14 PM EST) [facility] Hemoglobin A1C 9.8 % [facility] Lot Number [id number] [facility] Expiration Date [facility] Blood 04/25/2021 1:14 PM EST Vedrana Knezevic PA-C POINT OF CARE TEST ORDERAB LES Final Result [facility]
[address] [place] [address], [place] [phone] * (ABNORMAL) POC Glucose, Blood (04/25/2021 1:14 PM EST) [facility] Glucose 382(A) 70 - 130 mg/dL Blood 04/25/2021 1:14 PM EST Roc Tracey PA-C POINT OF CARE TEST ORDERAB LES Final Result documented in this encounter Visit Diagnoses Diagnosis Uncontrolled type 2 diabetes mellitus with hyperglycemia- Primary Mixed hyperlipidemia documented in this encounter Care Teams Technical Spec Relationship Specialty Start Date End Date Ev Augustin, [employer] [address] [place] [address] PCP - General Internal Medicine 04/12/18 08/18/21 documented as of this encounter
--- OUTSIDE RECORDS SUMMARY | 2024-02-20 09:09 | XMS_ITS | Encounter Summary ---
[facility] Address [address] [place] [address] Care Team Providers Care Dry End Operator Name Role Phone Alex Davis MD Primary Care Provider [phone] Encounter Details Date Type Department Care Team (Late st Contact Info) Description 09/09/2021 Telephone [facility] FAMILY MEDICINE [address] [facility] [place] [address] Alex Davis MD [address] [place] [address] Social History Tobacco Use Types [...] Telephone Encounter - Naya Santiago MA - 09/09/2021 9:56 AM EDT Pt stated having issues with sugar-feeling light headed and flushed-staying hydrated-used 16 units quick release insulin at 9:15 and long lasting at 8-8:30am-ate breakfast sandwich and diet mt dew about 91 or earlier-per Dr Morrin keep doing what she's been doing if not better by tomorrow go to [facility] documented in this encounter Plan of Treatment Upcoming Encounters Date Type Department Care Team (Late st Contact Info) Description 03/13/2024 2:45 PM EST Office Visit [facility] CARDIOLOGY [address] [facility] [place] [id number] Pj Ace MD [address] [facility] [address] [facility] [address] [place] [address] documented as of this encounter Visit Diagnoses Not on filedocumented in this encounter Care Teams Dry End Operator Relationship Specialty Start Date End Date Alex Davis MD [address] [place] [address] PCP - General Family Medicine 09/05/21 documented as of this encounter
--- OUTSIDE RECORDS SUMMARY | 2024-02-20 09:09 | XMS_ITS | Encounter Summary ---
[facility] Address [address] [place] [id number] Care Team Providers Care Acetone Recovery Worker Name Role Phone Alxe Davis MD Primary Care Provider [phone] Encounter Details Date Type Department Care Team (Late st Contact Info) Description 09/28/2021 11:45 AM EDT Lab [facility] [address] [place] [address] Elevated liver enzymes Social History Tobacco Use Types Packs/Day Years [...] Visit [facility] [address] [place] [address] [address] [place] [address] Pj Ace MD [address] [facility] [address] [facility] [address] [facility] [address] [place] [address] documented as of this encounter Procedures Procedure Name Priority Date/Time Associated Diagnosis Comments CBC WITH AUTO DIFFERENTIAL Routine 09/28/2021 7:24 PM EDT Elevated liver enzymes CBC AND DIFFERENTIAL Routine 09/28/2021 7:24 PM EDT Elevated liver enzymes [id number] Routine 09/28/2021 1 1:53 AM EDT Elevated liver enzymes MITOCHONDRIAL ANTIBODIES, M2 Routine 09/28/2021 11:53 AM EDT Elevated liver enzymes CERULOPLASMIN Routine 09/28/2021 11:53 AM EDT Elevated liver enzymes LIVER-KIDNEY MICROSOMAL AB Routine 09/28/2021 11:53 AM EDT Elevated liver enzymes ACTIN SMOOTH MUSCLE ANTIBODY Routine 09/28/2021 11:53 AM EDT Elevated liver enzymes LELAND Routine 09/28/2021 11:53 AM EDT Elevated liver enzymes IRON Routine 09/28/2021 11:53 AM EDT Elevated liver enzymes FERRITIN Routine 09/28/2021 11:53 AM EDT Elevated liver enzymes COMPREHENSIVE METABOLIC PANEL Routine 09/28/2021 11:53 AM EDT Elevated liver enzymes documented in this encounter Results * (ABNORMAL) CBC Auto Differential (09/28/2021 7:24 PM EDT) WBC 7.63 3.40 - 10.80 10*3/mm3 09/28/2021 10:59 PM EDT [facility] RBC 4.91 3.77 - 5.28 10*6/mm3 09/28/2021 10:59 PM EDT [facility] Hemoglobin 14.3 12.0 - 15.9 g/dL 09/28/2021 10:59 PM EDT [facility] Hematocrit 43.4 34.0 - 46.6 % 09/28/2021 10:59 PM EDT [facility] MCV 88.4 79.0 - 97.0 fL 09/28/2021 10:59 PM EDT [facility] MCH 29.1 26.6 - 33.0 pg 09/28/2021 10:[facility] MCHC 32.9 31.5 - 35.7 g/dL 09/28/2021 10:59 PM [facility] RDW 12.0(L) 12.3 - 15.4 % 09/28/2021 10:59 PM EDT [facility] RDW-SD 38.8 37.0 - 54.0 fl 09/28/2021 10:59 PM T [facility] MPV 11.4 6.0 - 12.0 fL 09/28/2021 10:59 PM [facility] Platelets 270 140 - 450 10*3/mm3 09/28/2021 10:59 PM T [facility] Neutrophil % 72.8 42.7 - 76.0 % 09/28/2021 10:59 PM [facility] Lymphocyte % 19.1(L) 19.6 - 45.3 % 09/28/2021 10:59 [facility] Monocyte % 6.0 5.0 - 12.0 % 09/28/2021 10:59 PM [facility] Eosinophil % 0.8 0.3 - 6.2 % 09/28/2021 10:59 [facility] Basophil % 0.9 0.0 - 1.5 % 09/28/2021 10:59 PM [facility] Immature Grans % 0.4 0.0 - 0.5 % 09/28/2021 10:59 PM EDT [facility] Neutrophils, Absolute 5.55 1.70 - 7.00 10*3/mm3 09/28/2021 10:59 PM EDT [facility] Lymphocytes, Absolute 1.46 0.70 - 3.10 10*3/mm3 09/28/2021 10:59 [facility] Monocytes, Absolute 0.46 0.10 - 0.90 10*3/mm3 09/28/2021 10:59 PM EDT [facility] Eosinophils, Absolute 0.06 0.00 - 0.40 10*3/mm3 09/28/2021 10:59 PM EDT [facility] Basophils, Absolute 0.07 0.00 - 0.20 10*3/mm3 09/28/2021 10:59 PM EDT [facility] Immature Grans, Absolute 0.03 0.00 - 0.05 10*3/mm3 09/28/2021 10:59 PM EDT [facility] nRBC 0.0 0.0 - 0.2 /100 WBC 09/28/2021 10:59 PM EDT [facility] Blood Venipuncture / Unknown 09/28/2021 7:24 PM EDT 09/28/2021 7:24 PM EDT us Umesh Fermin APRN LAB BLOOD ORDERABLES Rosie patel Result [facility]
[address] [place] [address], * Mitochondrial Antibodies, M2 (09/28/2021 11:53 AM EDT) Mitochondrial Ab <20.0 0.0 - 20.0 Units 09/30/2021 3:09 PM EDT [facility] Comment: ?Negative ?0.0 - 20.0 ?Equivocal ??20.1 - 24.9 ?Positive ? >24.9 Mitochondrial (M2) Antibodies are found in 90-96% of patients with primary biliary cirrhosis. Blood Venipuncture / Unknown 09/28/2021 11:53 AM EDT 09/28/2021 11:54 AM EDT Narrative [facility] - 09/30/2021 3:09 PM EDT Performed at: ??[address] ??[id number] Cheerleading Coach: Malik Hall PhD, Phone: ??[phone] Umesh L Rosemead CISCO ENGINEER LAB BLOOD ORDERABLES Rosie l Result Performing Organization Address [facility] Co de Phone Number [facility] [address] [place] [address], [place] [phone] * Iron (09/28/2021 11:53 AM EDT) Iron 93 27 - 139 ug/dL 09/30/2021 4:07 AM EDT [facility] Blood Venipuncture / Unknown 09/28/2021 11:53 AM EDT 09/28/2021 11:54 AM EDT Narrative [facility] - 09/30/2021 4:07 AM EDT Performed at: ??[address] ??[id number] Cheerleading Coach: Malik Hall PhD, Phone: ??[phone] Umesh Zapatacliffe CISCO ENGINEER LAB BLOOD ORDERABLES Rosie l Result Performing Organization Address [facility] Co de Phone Number [facility] [address] [place] [address], [place] [phone] * (ABNORMAL) Ferritin (09/28/2021 11:53 AM EDT) Ferritin 292(H) 15 - 150 ng/mL 09/30/2021 8:16 AM EDT [facility] Blood Venipuncture / Unknown 09/28/2021 11:53 AM EDT 09/28/2021 11:54 AM EDT Narrative [facility] - 09/30/2021 8:16 AM EDT Performed at: ??01 - [place] [id number] [place], [place] ??[id number] Cheerleading Coach: Malik Hall PhD, Phone: ??[phone] us Umesh Amanda Fermin CISCO ENGINEER LAB BLOOD ORDERABLES Rosie amanda Result [facility] [address] [place] [address], * (ABNORMAL) Comprehensive Metabolic Panel (09/28/2021 11:53 AM EDT) Glucose 184(H) 65 - 99 mg/dL 09/30/2021 [...] 09/30/2021 5:07 AM EDT Performed at: ??[address] ??[id number] Cheerleading Coach: Malik Hall PhD, Phone: ??[phone] Umesh Fermin APRN LAB BLOOD ORDERABLES Rosie patel Result [facility] [address] [place] [address], * Ceruloplasmin (09/28/2021 11:53 AM EDT) Ceruloplasmin 30.7 19.0 - 39.0 mg/dL 09/30/2021 8:16 AM EDT [facility] Blood Venipuncture / Unknown 09/28/2021 11:53 AM EDT 09/28/2021 11:54 AM EDT Narrative [facility] - 09/30/2021 8:16 AM EDT Performed at: ??01 - [facility] [address] ??[id number] Cheerleading Coach: Malik Hall PhD, Phone: ??[phone] Umesh Fermin APRN LAB BLOOD ORDERABLES Rosie l Result Performing Organization Address [facility] de Phone Number [facility] [address] [place] [address], * Anti-Smooth Muscle Antibody Titer (09/28/2021 11:53 AM EDT) Pathologist [facility] Smooth Muscle Ab 10 0 - 19 [...] 11:53 AM EDT 09/28/2021 11:[address] [facility] - 09/30/2021 3:09 PM EDT Performed at: ??01 - [address] ??[id number] Cheerleading Coach: Malik Hall PhD, Phone: ??[phone] Umesh Fermin APRN LAB BLOOD ORDERABLES Rosie l Result Performing Organization Address [facility] de Phone Number [facility] [address] [place] [address], * Anti-microsomal Antibody (09/28/2021 11:53 AM EDT) Pathologist [facility] Liver Fraction: 1.2 0.0 - 20.0 Units 09/30/2021 3:09 PM EDT [facility] Comment: ?Negative ?0.0 - 20.0 ?Equivocal ??20.1 - 24.9 ?Positive ? >24.9 LKM type 1 antibodies are detected in patients with autoimmune hepatitis type 2 and in up to 8% of patients with chronic HCV infection. Blood Venipuncture / Unknown 09/28/2021 11:53 AM EDT 09/28/2021 11:54 AM EDT Narrative [facility] - 09/30/2021 3:09 PM EDT Performed at: ??[address] - [address] ??[id number] Cheerleading Coach: Malik Hall PhD, Phone: ??[phone] Umesh Fermin APRN LAB BLOOD ORDERABLES Rosie patel Result [facility] [address] [place] [address], * LELAND (09/28/2021 11:53 AM EDT) LELAND Direct Negative Negative 09/30/2021 4:10 PM EDT [facility] Blood Venipuncture / Unknown 09/28/2021 11:53 AM EDT 09/28/2021 11:54 AM EDT Narrative [facility] - 09/30/2021 4:10 PM EDT Performed at: ??[address] - [address] ??[id number] Cheerleading Coach: Malik Hall PhD, Phone: ??[phone] us Umesh L Rosemead CISCO ENGINEER LAB BLOOD ORDERABLES Rosie l Result Performing Organization Address City/[facility]/ZIP Co de Phone Number [facility] [address] [place] [address], [place] [phone] * Alpha - 1 - Antitrypsin (09/28/2021 11:53 AM EDT) A-1 Antitrypsin 127 101 - 187 mg/dL 09/30/2021 8:16 AM EDT [facility] Blood Venipuncture / Unknown 09/28/2021 11:53 AM EDT 09/28/2021 11:54 AM EDT Narrative [facility] - 09/30/2021 8:16 AM EDT Performed at: ??01 - [address] ??[id number] Cheerleading Coach: Malik Hall PhD, Phone: ??[phone] Umesh L Rosemead CISCO ENGINEER LAB BLOOD ORDERABLES Rosie l Result Performing Organization Address City/[facility]/ZIP Co de Phone Number [facility] [address] [place] [address], documented in this encounter Visit Diagnoses Diagnosis Elevated liver enzymes Other nonspecific abnormal serum enzyme levels documented in this encounter Care Teams Acetone Recovery Worker Relationship Specialty Start Date End Date Alex Davis MD [address] [place] [address] PCP - General Family Medicine 09/05/21 documented as of this encounter
--- OUTSIDE RECORDS SUMMARY | 2024-02-20 09:09 | XMS_ITS | Encounter Summary ---
[facility] Address [address] [place] [address] Care Team Providers Care Medical Assisting Instructor Name Role Phone Ev Augustin APRN Primary Care Provider [phone] Encounter Details Date Type Department Care Team (Late st Contact Info) Description 05/12/2021 Refill [facility] [address] [facility] [address] [place] [address] Roc Tracey PA-C [address] [place] [address] Uncontrolled type 2 diabetes mellitus with hyperglycemia [...] on file documented as of this encounter Progress Notes * Nettie Mullins) - 05/12/2021 2:36 PM ESTAddended by: NETTIE FUCHS on: 05/12/2021 02:36 PM Modules accepted: Orders documented in this encounter Miscellaneous Notes * Telephone Encounter - Jelly Lawrence - 05/12/2021 2:10 PM EST Patient called requesting a refill on Insulin Lispro, 1 Unit Dial, (HumaLOG KwikPen) 100 UNIT/ML solution pen-injector and Insulin Glargine (LANTUS SOLOSTAR) 100 UNIT/ML injection pen. She needs thissent to [facility]. She requested a 90 day supply. Last ov 04/25/21 Follow up scheduled 07/26/21 documented in this encounter Plan of Treatment Upcoming Encounters Date Type Department Care Team (Late st Contact Info) Description 03/13/2024 2:45 PM EST Office Visit [facility] C[facility] [address] [place] [address] [place] [address] Pj Ace MD [address] [facility] [address] [place] [address] documented as of this encounter Visit Diagnoses Diagnosis Uncontrolled type 2 diabetes mellitus with hyperglycemia documented in this encounter Care Teams Medical Assisting Instructor Relationship Specialty Start Date End Date Ev Augustin APRN [address] [place] [address] PCP - General Internal Medicine 04/12/18 08/18/21 documented as of this encounter
--- OUTSIDE RECORDS SUMMARY | 2024-02-20 09:09 | XMS_ITS | Encounter Summary ---
[facility] Organization [facility] Address [address] [place] [address] Care Team Providers Care Concrete Stone Finishing Supervisor Name Role Phone Ev Augustin APRN Primary Care Provider [phone] Reason for Visit * Reason Comments Follow-up DM 2 Encounter Details Date Type Department Care Team (Late st Contact Info) Description 07/26/2021 2:30 PM EDT Office Visit [facility] [address] [phone] Kimberlyn Tracey PA-C [address] [address] Uncontrolled type 2 diabetes mellitus with hyperglycemia (Primary Dx); Elevated alkaline phosphatase level; Vitamin D deficiency Social History Tobacco Use Types Packs/Day Years [...] Reading Time Taken Comments Blood Pressure 142/82 07/26/2021 2:23 PM EDT Pulse 76 07/26/2021 2:23 PM EDT Temperature - - Respiratory Rate - - Oxygen Saturation 94% 07/26/2021 2:23 PM EDT Inhaled Oxygen Concentration - - Weight 85.1 kg (187 lb 9.6 oz) 07/26/2021 2:23 P M EDT Height 157.5 cm (5' 2.01 ) 07/26/2021 2:23 PM ED T Body Mass Index 34.3 07/26/2021 2:23 PM EDT documented in this encounter Patient Instructions * Patient Instructions* Kimberlyn Tracey PA-C - 07/26/2021 2:46 PM EDT Insulin dosing: Basal insulin - Increase Lantus to 30 units daily. After 3 days if fasting sugar is consistently about 150 then increase to 35 units Meal Insulin- Increase Humalog to 16 units (plus chart below) before meals Correction insulin (add to meal insulin) 0 unit if Blood sugar (BS) less than 150 2 unit if BS 150 - 199 4 units if BS 200 - 249 6 units if BS 250 - 299 8 units if BS 300 - 349 10 units if BS 350-399 12 units if BS >400 documented in this encounter Progress Notes * Kimberlyn Tracey PA-C - 07/26/2021 2:30 PM EDTAddended by: KIMBERLYN TRACEY on: 07/26/2021 03:09 PM Modules accepted: Orders * Kimberlyn Tracey PA-C - 07/26/2021 2:30 PM EDT Chief Complaint F/u for Diabetes Mellitus. HPI Gertrudis Gonzalez is a 65 y.o. female with chronic back pain and HTN- on multiple antihypertensives followed by cardiology in [place], who is here today for f/u of Diabetes Mellitus type 2. The initial diagnosis of diabetes was made approximately 2015. Stopped taking pravastatin. It was increased from 10 mg to 20 mg and when she took the higher dose it causes increased sweating, so she stopped taking it. A1C- 9.8 (04/25/2021), 7.8 (08/17/2020), 7.4 (01/16/2020), 8.5 (10/28/2019), 6.8 (04/18/2019), 7.4 (01/13/19), 7.4 (10/11/18), 7.6 (07/15/18), 7.2 (04/08/18), 7.7 (12/14/17), 6.7 (09/12/17), 8.9 (05/2017) Diabetic complications: gastroparesis followed by GI at [facility] Eye exam current (within one year): [facility] 05/2021, [facility] eye care Foot care and dental care: discussed Current diabetic medications include: Januvia 100mg daily - takes in the morning Lantus 25 units daily Humalog 12 units before meals Off V-GO. [place] like she constantly felt bee stings and had swelling and redness of the skin. Resolved after stopping V-GO. ACEI/ARB: losartan-hctz Past medications: metformin (? caused blurred vision, went away when stopped taking metformin), invokana (insurance didn't cover but thinks this controlled glucose better), actos (rash), jardiance (yeast infections), glipizide Diabetic Monitoring - Dexcom downloaded and reviewed: Time in range 30%, fasting blood sugar ranging from 120-200s, postprandial readings 200s to 300s, no hypoglycemia The following portions of the [...] Glargine (LANTUS SOLOSTAR) 100 UNIT/ML injection pen, Take up to 35 u daily as directed, Disp: 36 mL, Rfl: 1 ??? Insulin [...] , Disp: , Rfl: ??? nystatin (MYCOSTATIN) 854856 UNIT/GM cream, nystatin 100,000 unit/gram topical cream, Disp: , Rfl: ??? omeprazole (priLOSEC) 40 MG capsule, TAKE 1 CAPSULE DAILY, Disp: 90 capsule, Rfl: 3 ??? rOPINIRole (REQUIP) 1 MG [...] prn, Disp: 180 tablet, Rfl: 3 ??? pravastatin (PRAVACHOL) 20 MG tablet, Take 1 tablet by mouth Every Night., Disp: 90 tablet, Rfl: 1 Review of Systems Review of Systems All other systems reviewed and are negative. Physical Exam BP 142/82 Pulse 76 Ht 157.5 cm (62.01 ) Wt 85.1 kg (187 lb 9.6 oz) LMP (LMP Unknown) LiX853% BMI 34.30 kg/m?? Body mass index is 34.3 kg/m??. Physical Exam Constitutional: She is oriented [...] Imaging Lab Results Component Value Date HGBA1C 9.5 07/26/2021 HGBA1C 9.8 04/25/2021 HGBA1C 8.1 12/29/2020 Office Visit on 07/26/2021 Component Date Value Ref Range Status ??? Glucose 07/26/2021 186 (A) 70 - 130 mg/dL Final ??? Hemoglobin A1C 07/26/2021 9.5 % Final ??? Lot Number 07/26/2021 [id number] Final ??? Expiration Date 07/26/2021 [id number] Final Microalbumin / Creatinine Urine Ratio - Urine, Clean Catch (04/25/2021 13:43) Comprehensive Metabolic Panel (04/25/2021 13:43) Lipid Panel (04/25/2021 13:43) TSH (04/25/2021 13:43) Assessment / Plan Diagnoses and all orders for this visit: 1. Uncontrolled type 2 diabetes mellitus with hyperglycemia (HCC) (Primary) - POC Glucose, Blood - POC Glycosylated Hemoglobin (Hb A1C) - Insulin Lispro, 1 Unit Dial, (HumaLOG KwikPen) 100 UNIT/ML solution pen- injector; Take 16 units before meals, correction 2:50 >150, MDD 60U Dispense: 54 mL; Refill: 1 - Insulin Glargine (LANTUS SOLOSTAR) 100 UNIT/ML injection pen; Take up to 35 u daily as directed Dispense: 36 mL; Refill: 1 2. Elevated alkaline phosphatase level - Comprehensive Metabolic Panel - Vitamin D 25 Hydroxy - Gamma GT - Alkaline Phosphatase, Bone Specific 3. Vitamin D deficiency - Vitamin D 25 Hydroxy Diabetes Mellitus 2 is under poor control. -A1c 9.5 -Dexcom downloaded and reviewed: Time in range 30%, fasting blood sugar ranging from 120-200s, postprandial readings 200s to 300s, no hypoglycemia -choice of medications is limited- intolerant to metformin, actos (rash), no GLP1 agonist due to gastroparesis, did not tolerate jardiance -continue januvia 100mg daily -Increase Lantus to 30 units daily and if fasting blood sugar remains above 150 then increase to 35units daily -Increase Humalog to 16 units plus correction 2:50 for >150 before meals -labs updated 04/2021, foot exam updated 04/2021, eye exam updated 05/2021 Hyperlipidemia -praluent/repatha not covered by insurance -Resume pravastatin 20 mg to see if she has any side effects. Discussed increased diaphoresis is typically not a side effect of pravastatin, however if she does have issues we will go back down to 10mg Elevated alk phos -check vit d (is on vit d supplement, thinks 500 IU daily), ggt, bone specific alk phos Patient Instructions Insulin dosing: Basal insulin - Increase Lantus to 30 units daily. After 3 days if fasting sugar is consistently about 150 then increase to 35 units Meal Insulin- Increase Humalog to 16 units (plus chart below) before meals Correction insulin (add to meal insulin) 0 unit if Blood sugar (BS) less than 150 2 unit if BS 150 - 199 4 units if BS 200 - 249 6 units if BS 250 - 299 8 units if BS 300 - 349 10 units if BS 350-399 12 units if BS >400 Follow up: Return in about 3 months (around 10/25/2021). Kimberlyn Tracey PA-C documented in this encounter Plan of Treatment Upcoming Encounters Date Type Department Care Team (Late st Contact Info) Description 03/13/2024 2:45 PM EST Office Visit [facility] [address] [place] [address] [place] [address] Pj Ace MD [address] [facility] [address] [place] [address] documented as of this encounter Procedures Procedure Name Priority Date/Time Associated Diagnosis Comments ALKALINE PHOSPHATASE, BONE SPECIFIC Routine 07/26/2021 3:02 PM EDT Elevated alkaline phosphatase level VITAMIN D,25-HYDROXY Routine 07/26/2021 3:02 PM EDT Elevated alkaline phosphatase level Vitamin D deficiency GAMMA GT Routine 07/26/2021 3:02 PM EDT Elevated alkaline phosphatase level COMPREHENSIVE METABOLIC PANEL Routine 07/26/2021 3:02 PM EDT Elevated alkaline phosphatase level POCT GLUCOSE, BLD (NON STRIP) Routine 07/26/2021 2:34 PM EDT Uncontrolled type 2 diabetes mellitus with hyperglycemia POCT GLYCOSYLATED HEMOGLOBIN (HGB A1C) Routine 07/26/2021 2:34 PM EDT Uncontrolled type 2 diabetes mellitus with hyperglycemia documented in this encounter Results * Alkaline Phosphatase, Bone Specific (07/26/2021 3:02 PM EDT) Tandem-R Ostase 31.8 ug/L 3:09 PM EDT [facility] Comment: ? Premenopausal Women: ? 6.0 - 22.7 ? Postmenopausal Women: ?8.1 - 31.6 Blood Venipuncture / Unknown 07/26/2021 3:02 PM EDT 07/26/2021 3:02 PM EDT Narrative [facility] - 08/05/2021 3:09 PM EDT Performed at: ??01 - [facility] [address] [place], [place] ??[id number] Stretching Machine Tender Frame: Iesha Ro MD, Phone: ??[phone] Performed at: ??02 - [facility] [address] [place], [place] ??[id number] Stretching Machine Tender Frame: Gustabo Rodriguez [facility], Phone: ??[phone] Kimberlyn VILLAGOMEZ-Cristino LAB BLOOD ORDERABLES Edite d Result - Final Performing Organization Address City/[facility]/ZIP Co de Phone Number [facility] [address] [place] [address], [place] [phone] * (ABNORMAL) Gamma GT (07/26/2021 3:02 PM EDT) GGT 44(H) 5 - 36 U/L 07/26/2021 11:59 PM EDT [facility] Blood Venipuncture / Unknown 07/26/2021 3:02 PM EDT 07/26/2021 3:02 PM EDT Kimberlyn Tracey PA-C LAB BLOOD ORDERABLES Final Result [facility]
[address] [place] [address], [place] [phone] * Vitamin D 25 Hydroxy (07/26/2021 3:02 PM EDT) 25 Hydroxy, Vitamin D 51.4 30.0 - 100.0 ng/ml 07/27/2021 12:08 AM EDT [facility] Blood Venipuncture / Unknown 07/26/2021 3:02 PM EDT 07/26/2021 3:02 PM EDT Narrative [facility] - 07/27/2021 12:08 AM EDT Reference Range for Total Vitamin D 25(OH) Deficiency <20.0 ng/mL Insufficiency 21-29 ng/mL Sufficiency 30-100 ng/mL Toxicity >100 ng/ml Results may be falsely increased if patient taking Biotin. Kimberlyn Tracey PA-C LAB BLOOD ORDERABLES Final Result [facility]
[address] [place] [address], * (ABNORMAL) Comprehensive Metabolic Panel (07/26/2021 3:02 PM EDT) Glucose 150(H) 65 - 99 mg/dL 07/26/2021 11:59 PM EDT [facility] BUN 18 8 - 23 mg/dL 07/26/2021 11:59 PM EDT [facility] Creatinine 0.65 0.57 - 1.00 mg/dL 07/26/2021 11:59 PM EDT [facility] Sodium 141 136 - 145 mmol/L 07/26/2021 11:59 PM EDT [facility] Potassium 4.2 3.5 - 5.2 mmol/L 07/26/2021 11:59 PM EDT [facility] Chloride 100 98 - 107 mmol/L 07/26/2021 11:59 PM EDT [facility] CO2 28.0 22.0 - 29.0 mmol/L 07/26/2021 11:59 PM EDT [facility] Calcium 9.9 8.6 - 10.5 mg/dL 07/26/2021 11:59 PM EDT [facility] Total Protein 7.2 6.0 - 8.5 g/dL 07/26/2021 11:59 PM EDT [facility] Albumin 4.20 3.50 - 5.20 g/dL 07/26/2021 11:59 PM EDT [facility] ALT (SGPT) 63(H) 1 - 33 U/L 07/26/2021 11:59 PM EDT [facility] AST (SGOT) 53(H) 1 - 32 U/L 07/26/2021 11:59 PM EDT [facility] Alkaline Phosphatase 157(H) 39 - 117 U/L 07/26/2021 11:59 PM EDT [facility] Total Bilirubin 0.4 0.0 - 1.2 mg/dL 07/26/2021 11:59 PM EDT [facility] Globulin 3.0 gm/dL 07/26/2021 11:59 PM EDT [facility] A/G Ratio 1.4 g/dL 07/26/2021 11:59 PM EDT [facility] BUN/Creatinine Ratio 27.7(H) 7.0 - 25.0 07/26/2021 11:59 PM EDT [facility] Anion Gap 13.0 5.0 - 15.0 mmol/L 07/26/2021 11:59 PM EDT [facility] eGFR 98.5 >60.0 mL/min/1. 73 07/26/2021 11:59 PM EDT [facility] Comment:National Kidney Foun dation and [place] Society of Nephrology (ASN) Task Force recommended calculation based on the Chronic Kidney Disease Epidemiology Collaboration (CKD-EPI) equation refit without adjustment for race. Blood Venipuncture / Unknown 07/26/2021 3:02 PM EDT 07/26/2021 3:02 PM EDT [facility] - 07/26/2021 11:59 PM EDT GFR Normal >60 Chronic Kidney Disease <60 Kidney Failure <15 us Kimberlyn Tracey PA-C LAB BLOOD ORDERABLES Final Result [facility]
[address] [place] [address], * POC Glycosylated Hemoglobin (Hb A1C) (07/26/2021 2:34 PM EDT) Hemoglobin A1C 9.5 % [facility] Lot Number [id number] [facility] Expiration Date [facility] Blood 07/26/2021 2:34 PM EDT Vedrana Knezevic PA-C POINT OF CARE TEST ORDERAB LES Final Result Performing Organization Address City/[facility]/ZIP Co de Phone Number [facility]
[address] [place] [address], [place] [phone] * (ABNORMAL) POC Glucose, Blood (07/26/2021 2:34 PM EDT) Glucose 186(A) 70 - 130 mg/dL [facility] Blood 07/26/2021 2:34 PM EDT Vedrana Salsifyezevic PA-C POINT OF CARE TEST ORDERAB LES Final Result Performing Organization Address [facility] Co de Phone Number [facility]
[address] [place] [id number], [place] [phone] documented in this encounter Visit Diagnoses Diagnosis Uncontrolled type 2 diabetes mellitus with hyperglycemia- Primary Elevated alkaline phosphatase level Vitamin D deficiency documented in this encounter Care Teams Concrete Stone Finishing Supervisor Relationship Specialty Start Date End Date Ev Augustin APRN [address] [place] [address] PCP - General Internal Medicine 04/12/18 08/18/21 documented as of this encounter
--- OUTSIDE RECORDS SUMMARY | 2024-02-20 09:09 | XMS_ITS | Encounter Summary ---
[facility] Address [address] [place] [address] Care Team Providers Care Slot Machine Department Floorperson Name Role Phone Ev Augustin APRN Primary Care Provider [phone] [phone] Encounter Details Date Type Department Care Team (Late st Contact Info) Description 02/07/2021 11:00 AM EST Office Visit [facility] ED[facility] [address] [place] [phone] Social History Tobacco Use Types Packs/Day Years Used Date Smoking Tobacco: Never Smokeless Tobacco: Never Alcohol Use Standard Drinks/Week Comments No 0 (1 standard drink = 0.6 oz pur e alcohol) PHQ-2 Answer Date Recorded Retired Total Score 11/09/2020 Comments No Sex and Gender Information Value Date Recorded Sex Assigned at Not on file Legal Sex Female 10:25 AM EDT Gender Identity Not on file Sexual Orientation Not on file documented as of this encounter Consult Notes * Mirna Goodman RN - 02/07/2021 11:00 AM EST Diabetes Education Patient Name: Gertrudis Gonzalez Date of : 1955 Admit Date: (Not on file) Ms. Gonzalez attended initial diabetes education visit; referral noted in Epic, 60 minute visit with BELINDA SOSA including Vgo training and start. Please see media tab for full assessment and notes. Thank you for the referral! Electronically signed by: Mirna Goodman RN, BELINDA 02/07/21 11:53 EST documented in this encounter Plan of Treatment Upcoming Encounters Date Type Department Care Team (Late st Contact Info) Description 03/13/2024 2:45 PM EST Office Visit [facility] [address] [place] [address] [place] [phone] Pj Ace MD [address] [facility] [address] [place] [address] documented as of this encounter Visit Diagnoses Not on filedocumented in this encounter Care Teams Slot Machine Department Floorperson Relationship Specialty Start Date End Date Ev Augustin, SOFTWARE DESIGN ANALYST [address] [place] [address] PCP - General Internal Medicine 04/12/18 08/18/21 documented as of this encounter
--- OUTSIDE RECORDS SUMMARY | 2024-02-20 09:09 | XMS_ITS | Encounter Summary ---
Author Organization [facility] Address [address] [place] [address] Care Team Providers Care Document Restorer Name Role Phone Alex Davis MD Primary Care Provider Reason for Referral * Diagnostic Imaging (Routine) - Closed Specialty Diagnoses / Procedures Referred By Contac t Referred To Contact Radiology Diagnoses Screening mammogram for breast cancer Procedures Mammo Screening Digital Tomosynthesis Bilateral With CAD Alex Davis MD [address] [place] [address] Phone: tel: fax: [place] [address] Phone: tel: Referral ID Status Reason Start Date Expiration Date Visits Re quested Visits Authorized [id number] Closed 09/05/2021 09/05/2022 1 1 Reason for Visit * Diagnostic Imaging (Routine) - Closed Specialty Diagnoses / Procedures Referred By Contac t Referred To Contact Radiology Diagnoses Screening mammogram for breast cancer Procedures Mammo Screening Digital Tomosynthesis Bilateral With CAD Alex Davis MD [address] [place] [address] Phone: tel: fax: [place] [phone] Phone: tel: Referral ID Status Reason Start Date Expiration Date Visits Re quested Visits Authorized [id number] Closed 09/05/2021 09/05/2022 1 1 Encounter Details Date Type Department Care Team (Latest Contact Info) Description 09/28/2021 1:00 PM EDT - 09/28/2021 11:59 PM EDT Hospital Encounter [facility] [address] [place] [address] Alex Davis MD [address] [address] Screening mammogram for breast cancer Discharge Disposition: [...] >150, MDD 60U 54 mL 1 07/26/2021 metoclopramide (REGLAN) 5 MG tablet Take 1 tablet by mouth 3 (Three) Times a Day. 04/06/2020 albuterol sulfate HFA 108 (90 Base) MCG/ACT inhalerIndications: Cough Inhale 2 puffs Every 6 (Six) Hours As Needed for Wheezing or Shortness of Air. 18 g 11 11/09/2020 2 ciclopirox (LOPROX) 0.77 % gel 06/22/2020 2 cyclobenzaprine (FLEXERIL) 10 MG tablet Take 10 mg by mouth 3 (Three) Times a Day As Needed for Muscle Spasms. 2 estradiol (ESTRACE VAGINAL) 0.1 MG/GM vaginal creamIndications:Va ginal atrophy Insert 2 g into the vagina 1 (One) Time Per Week. 42.5 g 5 11/09/2020 3 ezetimibe (Zetia) 10 MG tablet Take 1 tablet by mouth Daily. 90 tablet 1 04/26/2021 2 Insulin Glargine (LANTUS SOLOSTAR) 100 UNIT/ML injection penIndications:Unco ntrolled type 2 diabetes mellitus with hyperglycemia 35 units QAM 36 mL 1 09/06/2021 2 Insulin Pen Needle 32G X 4 MM miscIndications:Unc ontrolled type 2 diabetes mellitus with hyperglycemia Use daily with insulin up to 6 times per day 600 each 3 06/27/2021 3 Januvia 100 MG tabletIndications:U ncontrolled type 2 diabetes mellitus with hyperglycemia TAKE 1 TABLET DAILY 90 tablet 3 11/08/2020 2 losartan (COZAAR) 100 MG tablet Take 100 mg by mouth Daily. 2 meloxicam (MOBIC) 7.5 MG tabletIndications:P ostlaminectomy syndrome of lumbar region,Herniated lumbar intervertebral disc Take 1 tablet by mouth Daily. 90 tablet 1 09/05/2021 2 metFORMIN (Glucophage) 500 MG tabletIndications:C ontrolled 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, without long-term current use of insulin 1/2 PO BID 2 weeks then 1 PO BID 60 tablet 3 09/05/2021 2 NIFEdipine CC (ADALAT CC) 60 MG 24 hr tablet 08/20/2020 3 nystatin (MYCOSTATIN) 241101 UNIT/GM cream nystatin 100,000 unit/gram topical cream 2 omeprazole (priLOSEC) 40 MG capsuleIndications: Gastroesophageal reflux disease without esophagitis TAKE 1 CAPSULE DAILY 90 capsule 3 11/08/2020 2 pravastatin (PRAVACHOL) 20 MG tablet Take 1 tablet by mouth Every Night. 90 tablet 1 04/26/2021 2 rOPINIRole (REQUIP) 1 MG tabletIndications:R LS (restless legs syndrome) TAKE 1 TABLET EVERY NIGHT, 60 MINUTES BEFORE BEDTIME 90 tablet 3 06/16/2021 3 topiramate (TOPAMAX) 50 MG tabletIndications:C hronic migraine without aura without status migrainosus, not intractable Take 1 tablet by mouth Daily As Needed (migraine). 90 tablet 3 11/09/2020 3 traMADol (ULTRAM) 50 MG tabletIndications:P ostlaminectomy syndrome of lumbar region,Herniated lumbar intervertebral disc Take 1 tablet by mouth Every 8 (Eight) Hours As Needed for Moderate Pain . 90 tablet 2 09/05/2021 2 traZODone (DESYREL) 50 MG tabletIndications:P rimary insomnia Take 1 to 2 tabs po hs prn 180 tablet 3 07/16/2020 3 documented as of this encounter Plan of Treatment Upcoming Encounters Date Type Department Care Team (Late st Contact Info) Description 03/13/2024 2:45 PM EST Office Visit [facility] C[facility] [address] [place] [address] [place] [address] Pj Ace MD [address] [facility] [address] [place] [address] documented as of this encounter Procedures Procedure Name Priority Date/Time Associated Diagnosis Comments MAMMO SCREENING DIGITAL TOMOSYNTHESIS BILATERAL W CAD Routine 09/28/2021 1:40 PM EDT Screening mammogram for breast cancer documented in this encounter Results * Mammo Screening Digital Tomosynthesis Bilateral With CAD (09/28/2021 1:40 PM EDT) Anatomical Region Laterality Modality Breast N/A Mammography 10/08/2021 4:55 PM EDT Impressions 10/08/2021 5:00 PM EDT No findings suspicious for malignancy. [...] exam will be mailed to the patient. ?? If there is a palpable area of concern, biopsy should be considered regardless of imaging findings. This report was finalized on 10/08/2021 5:00 PM by Guerline Rand MD. Narrative 10/08/2021 5:00 PM EDT ROUTINE DIGITAL SCREENING MAMMOGRAM WITH TOMOSYNTHESIS HISTORY: Routine screening. IMAGE COMPARISON: Extending to 2019. TECHNIQUE: ??Low dose full field digital breast tomosynthesis imaging was performed with 2D and 3D acquisitions consisting of bilateral CC and MLO views. FINDINGS: There are scattered fibroglandular densities. The fibroglandular pattern appears stable. ??There is no mass, worrisome microcalcifications, or architectural distortion to suggest development of malignancy. us Alex Davis MD IMG MAMMOGRAPHY ORDERABLES Rosie patel Result documented in this encounter Visit Diagnoses Diagnosis Screening mammogram for breast cancer documented in this encounter Care Teams Document Restorer Relationship Specialty Start Date End Date Alex Davis MD [address] [place] [address] PCP - General Family Medicine 09/05/21 documented as of this encounter
--- OUTSIDE RECORDS SUMMARY | 2024-02-20 09:09 | XMS_ITS | Encounter Summary ---
[facility] Address [address] [place] [address] Care Team Providers Care Break Off Worker Name Role Phone Ev Augustin APRN Primary Care Provider [phone] Encounter Details Date Type Department Care Team (Late st Contact Info) Description 05/11/2021 Documentation [facility] ED [address] [facility] [address] [place] [address] Danelle Ruiz, RN Social History Tobacco Use Types Packs/Day Years [...] on file documented as of this encounter Nursing Notes * Danelle Ruiz, RN - 05/11/2021 12:53 PM EST 60 minutes of face to face time spent with patient for Dexcom training. Patient was an active participant with using program project analyst guidelines was successfully able to apply, pair and start sensor without difficulty. She voices much satisfaction with training and product. Encouraged further educationby reviewing educational materials or visiting dexcom website for educational tutorials. Thank you for this opportunity. documented in this encounter Plan of Treatment Upcoming Encounters Date Type Department Care Team (Late st Contact Info) Description 03/13/2024 2:45 PM EST Office Visit [facility] [address] [place] [address] [place] [address] Pj Ace MD [address] [facility] [address] [place] [address] documented as of this encounter Visit Diagnoses Not on filedocumented in this encounter Care Teams Break Off Worker Relationship Specialty Start Date End Date Ev Augustin, RADIOGRAPHER TECHNOLOGIST [address] [place] [address] PCP - General Internal Medicine 04/12/18 08/18/21 documented as of this encounter
--- OUTSIDE RECORDS SUMMARY | 2024-02-20 09:09 | XMS_ITS | Encounter Summary ---
[facility] Address [address] [place] [address] Care Team Providers Care Dental Hygiene Administrative Assistant Name Role Phone Ev Augustin APRN Primary Care Provider [phone] [phone] Reason for Visit * Reason Onset Date Comments dexcom sensor 05/04/2021 Encounter Details Date Type Department Care Team (Late st Contact Info) Description 05/04/[address] [facility] ENDOCRINOLOGY [address] [facility] [address] [place] [id number] Roc Tracey PA-C [address] [facility] [address] [place] [address] dexcom sensor Social History Tobacco Use Types Packs/Day Years [...] encounter Miscellaneous Notes * Telephone Encounter - Roc Tracey PA-C - 05/04/2021 1:55 PM EST Referral added. * Telephone Encounter - Ambar Morrow MA - 05/04/2021 1:51 PM EST Can you please put in a referral for her to be trained by one of the educators? * Telephone Encounter - Aleta Holley RegSched Rep - 05/04/2021 1:44 PM EST Pt called states she has Dexcom sensor pt needs some training on how to use. Pt last seen 04/25/21 pt next appt 07/26/21 documented in this encounter Plan of Treatment Upcoming Encounters Date Type Department Care Team (Late st Contact Info) Description 03/13/2024 2:45 PM EST Office Visit [facility] CARDIOLOGY [address] [place] [address] Pj Ace MD [address] [facility] [address] [place] [address] documented as of this encounter Visit Diagnoses Not on filedocumented in this encounter Care Teams Dental Hygiene Administrative Assistant Relationship Specialty Start Date End Date Ev Augustin APRN [address] [place] [id number] PCP - General Internal Medicine 04/12/18 08/18/21 documented as of this encounter
--- OUTSIDE RECORDS SUMMARY | 2024-02-20 09:09 | XMS_ITS | Encounter Summary ---
[facility] Address [address] [place] [id number] Care Team Providers Care Volunteer Services Manager Name Role Phone Ev Augustin APRN Primary Care Provider [phone] Reason for Visit * Reason Onset Date Comments Med Refill 04/26/2021 Encounter Details Date Type Department Care Team (Late st Contact Info) Description 04/26/2021 Refill [facility] END[facility]CRINOLOGY [address] [facility] [address] [place] [id number] Roc Tracey PA-C [address] [facility] [address] [place], [place] [id number] Social History Tobacco Use Types Packs/Day Years [...] 2:45 PM EST Office Visit [facility] CARDIOLOGY [address] [place] [address] [address] [place] [address] Pj Ace MD [facility] [facility] [address] [address] [place] [address] documented as of this encounter Visit Diagnoses Not on filedocumented in this encounter Care Teams Volunteer Services Manager Relationship Specialty Start Date End Date Ev Augustin APRN [address] [place] [address] PCP - General Internal Medicine 04/12/18 08/18/21 documented as of this encounter
--- OUTSIDE RECORDS SUMMARY | 2024-02-20 09:09 | XMS_ITS | Encounter Summary ---
[facility] [address] [place] [address] Care Team Providers Care Tooth Polisher Name Role Phone Ev Augustin APRN Primary Care Provider [phone] [phone] Reason for Visit * Reason Comments Med Refill Encounter Details Date Type Department Care Team (Late st Contact Info) Description 01/09/2021 Refill [facility] INTERNAL MEDICINE [address] [place] [address] Ev Augustin, VASILE [address] [place] [phone] Postlaminectomy syndrome of lumbar region; Herniated lumbar [...] encounter Miscellaneous Notes * Telephone Encounter - Shilpa Atkins MA - 01/10/2021 9:12 AM EDT Please advise SNEHA 11/09/20 Last filled 07/16/20 #90 and 2 refills documented in this encounter Plan of Treatment Upcoming Encounters Date Type Department Care Team (Late st Contact Info) Description 03/13/2024 2:45 PM EST Office Visit [facility] CARDIOLOGY [address] [place] [address] [place] [phone] Pj Ace MD [address] [facility] [address] [place] [address] documented as of this encounter Visit Diagnoses Diagnosis Postlaminectomy syndrome of lumbar region Postlaminectomy syndrome, lumbar region Herniated lumbar intervertebral disc Displacement of lumbar intervertebral disc without myelopathy documented in this encounter Care Teams Tooth Polisher Relationship Specialty Start Date End Date Ev Augustin APRN [address] [place] [address] PCP - General Internal Medicine 04/12/18 08/18/21 documented as of this encounter
--- OUTSIDE RECORDS SUMMARY | 2024-02-20 09:09 | XMS_ITS | Encounter Summary ---
[facility] [address] [place] [address] Care Team Providers Care Customer Marketing Manager Name Role Phone Ev Augustin APRN Primary Care Provider [phone] [phone] Reason for Visit * Reason Onset Date Comments Med Refill 07/21/2021 Encounter Details Date Type Department Care Team (Late st Contact Info) Description 07/21/2021 Refill [facility] INTERNAL MEDICINE [address] [place] [address] Ev Augustin APRN [address] [place] [address] Postlaminectomy syndrome of lumbar region; Herniated lumbar [...] encounter Miscellaneous Notes * Telephone Encounter - Adair Martinez - 07/21/2021 12:17 PM EDT Caller: Gertrudis Gonzalez Relationship: Self Best call back number: [phone] Requested Prescriptions: Requested Prescriptions Pending Prescriptions Disp Refills ??? traMADol (ULTRAM) 50 MG tablet 90 tablet 2 Sig: Take 1 tablet by mouth Every 8 (Eight) Hours As Needed for Moderate Pain . Pharmacy where request should be sent: [facility] - [place], [place] - [address] [place] [address] - [phone] [facility] [phone] Additional details provided by patient: PATIENT HAS CALLED REQUESTING A NEW 90 DAY PRESCRIPTION ON ABOVE MEDICATION Does the patient have less than a 3 day supply: [] Yes [x] No Adair Martinez 07/21/21 12:17 EDT documented in this encounter Plan of Treatment Upcoming Encounters Date Type Department Care Team (Late st Contact Info) Description 03/13/2024 2:45 PM EST Office Visit [facility] CARDIOLOGY [address] 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
--- OUTSIDE RECORDS SUMMARY | 2024-02-20 09:09 | XMS_ITS | Encounter Summary ---
[facility] Address [address] [place] [address] Care Team Providers Care Still Worker Helper Name Role Phone Ev Augustin APRN Primary Care Provider [phone] Reason for Visit * Reason Comments Pain * Consultation (Routine) - Closed Specialty Diagnoses / Procedures Referred By Yodit salinas Referred To Contact Orthopedic Surgery Diagnoses Chronic pain of left ankle Ev Augustin APRN [address] [place] [address] Phone: tel: fax: [facility] [address] [place] [address] Phone: tel: fax: Referral ID Status Reason Start Date Expiration Date V isits Requested Visits Authorized [id number] Closed Specialty Services Required 11/09/2020 11/09/2021 1 1 Encounter Details Date Type Department Care Team (Late st Contact Info) Description 12/13/2020 12:40 PM EDT Office Visit [facility] [address] [place] [address] Quin Flaherty MD [address] [place] [address] Left ankle pain, unspecified chronicity (Primary Dx); Left leg weakness; Left foot pain; Uncontrolled type 2 diabetes mellitus with hyperglycemia [...] Sign Reading Time Taken Comments Blood Pressure 154/83 12/13/2020 12:31 PM EDT Pulse 86 12/13/2020 12:31 PM EDT Temperature - - Respiratory Rate - - Oxygen Saturation - - Inhaled Oxygen Concentration - - Weight 82.6 kg (182 lb 1.6 oz) 12/13/2020 12:31 PM EDT Height 157.5 cm (5' 2.01 ) 12/13/2020 12:31 PM E DT Body Mass Index 33.3 12/13/2020 12:31 PM EDT documented in this encounter Progress Notes * Quin Flaherty MD - 12/13/2020 12:40 PM EDT NEW PATIENT Patient: Gertrudis Gonzalez : 1955 Primary Care Provider: Ev Augustin APRN Requesting Provider: As above Pain of the Left Ankle History Chief Complaint: Left leg problem History of Present Illness: This is a very pleasant 64-year-old woman with a complex medical history. She is extremely pleasant but a somewhat vague historian. I looked through the multiple records in her chart. This is where I obtained a lot of the history. Her history is she reports that about 2 years ago she had some type of tumor removed from her back and has had left leg weakness with some numbness. She does not remember what type of tumor. She does not remember the doctor's name. She alsohad bladder and bowel difficulties. She reports that subsequently she had an inversion injury to her left ankle, with a tiny avulsion at the tip of the fibula. This was treated by podiatry in [place]. She ultimately did physical therapy. She was prescribed an AFO brace. She is not exactly certain why she wears the brace. She thinksshe has a foot drop. She also thought she might be wearing the brace to prevent a foot drop. She has x-rays from [facility] of the left ankle 3 views dated 12/29/2019, showing a tiny avulsion at the tip of the fibula. She has weightbearing foot x-rays from 09/15/2020 which shows possibly an old healed second metatarsal fracture, but no acute fractures. I reviewed the filmsand the report. My interpretation of the foot x-rays is that some old periosteal thickening. I am not necessarily certain it was a fracture. There is significant osteopenia on the films. The note that I have from podiatry is dated 06/22/2020, on that note they talk about plantar fasciitis and they injected the plantar fascia. They discussed the foot drop, the brace and physical therapy. She is here with a question as to whether she needs the brace. She also was told by her report thatthe ankle joint has [id number] and she needs an ankle replacement. I do not have the specific records, she reports that a practitioner at the chain repairer office told her this. She has diffuse painin the left leg, some pain in the right. It is intermittently sharp and shooting. Medical history is significant for diabetes. She started taking medication about 3 years ago, but probably has had diabetes for much longer because she has gastroparesis. The GI notes in the chart indicate it is diabetic gastroparesis. Her most recent hemoglobin A1c was 7.8 on 08/17/2020. She reports she has a hard time controlling her glucose, she is confused about what foods are okay to eat. Yesterday evening she had breaded fried fish, 2 pieces, and her glucose was elevated to 129 this morning. We had a very long discussion about carbohydrates. She has been to diabetes education in the pastbut I encouraged her to go back. We talked about weight watchers. We talked about the various apps that can be obtained on a smart phone for carb counting and diabetes control. She has a smart phone In reviewing the medical record I found that she was seen by Dr. Ortiz of neurosurgery at [place].In May 2019 he excised a schwannoma from the cauda equina. His last note that I have availablein the chart was from 06/19/2019. It notes that she has weakness on the left as well as bladder and b owel problems. It was noted that the bladder and bowel problems seemed to be improving. There are no further neurosurgery notes in the chart. I wrote down the schwannoma diagnosis for her so that shecould remember this. Current Outpatient Medications on File Prior to Visit Medication Sig Dispense Refill ??? albuterol sulfate HFA 108 (90 Base) MCG/ACT inhaler Inhale 2 puffs Every 6 (Six) Hours As Needed for Wheezing or Shortness of Air. 18 g 11 ??? bethanechol (URECHOLINE) 50 MG tablet Take 50 mg by mouth 3 (Three) Times a Day. ??? bisoprolol (ZEBeta) 5 MG tablet Take 5 mg by mouth Daily. ??? ciclopirox (LOPROX) 0.77 % gel ??? Continuous Blood Gluc Seismic Interpreter (FreeStyle Nevaeh 2 Mesa) device 1 Device Continuous. 1 each 0 ??? Continuous Blood Gluc Sensor (FreeStyle Nevaeh 2 Sensor) misc 1 each Every 14 (Fourteen) Days. 6each 3 ??? cyclobenzaprine (FLEXERIL) 10 MG tablet Take 10 mg by mouth 3 (Three) Times a Day As Needed forMuscle Spasms. ??? docusate sodium (COLACE) 100 MG capsule Take 100 mg by mouth 2 (Two) Times a Day. ??? estradiol (ESTRACE VAGINAL) 0.1 MG/GM vaginal cream Insert 2 g into the vagina 1 (One) Time PerWeek. 42.5 g 5 ??? furosemide (LASIX) 20 MG tablet Take 20 mg by mouth 2 (Two) Times a Day As Needed. ??? glipizide (GLUCOTROL) 10 MG tablet Take 1 tablet by mouth 2 (Two) Times a Day Before Meals. Must be taken AC to avoid hypoglycemia 180 tablet 1 ??? insulin glargine (LANTUS, SEMGLEE) 100 UNIT/ML injection Inject 32 Units under the skin into the appropriate area as directed Daily. ??? Insulin Pen Needle 32G X 4 MM misc Use daily with insulin 100 each 3 ??? Januvia 100 MG tablet TAKE 1 TABLET DAILY 90 tablet 3 ??? Lantus SoloStar 100 UNIT/ML injection pen ??? losartan (COZAAR) 100 MG tablet Take 100 mg by mouth Daily. ??? meloxicam (MOBIC) 7.5 MG tablet ??? metoclopramide (REGLAN) 5 MG tablet Take 5 mg by mouth 3 (Three) Times a Day. ??? NIFEdipine CC (ADALAT CC) 60 MG 24 hr tablet ??? NIFEdipine CC (ADALAT CC) 90 MG 24 hr tablet Take 60 mg by mouth Daily. ??? nystatin (MYCOSTATIN) 014147 UNIT/GM cream nystatin 100,000 unit/gram topical cream ??? omeprazole (priLOSEC) 40 MG capsule TAKE 1 CAPSULE DAILY 90 capsule 3 ??? pravastatin (PRAVACHOL) 10 MG tablet Take 1 tablet by mouth Every Night. 90 tablet 3 ??? rOPINIRole (REQUIP) 1 MG tablet TAKE 1 TABLET EVERY NIGHT, 60 MINUTES BEFORE BEDTIME 90 tablet 3 ??? topiramate (TOPAMAX) 50 MG tablet Take 1 tablet by mouth Daily As Needed (migraine). 90 tablet 3 ??? traMADol (ULTRAM) 50 MG tablet Take 1 tablet by mouth Every 8 (Eight) Hours As Needed for Moderate Pain . 90 tablet 2 ??? traZODone (DESYREL) 50 MG tablet Take 1 to 2 tabs po hs prn 180 tablet 3 No current facility-administered medications on file prior to visit. Allergies Allergen Reactions ??? Iain Inhibitors Cough ??? Amlodipine Diarrhea ??? Beta Adrenergic Blockers Rash ??? Cyclobenzaprine Rash ??? Hydrochlorothiazide Rash ??? Hyzaar [Losartan Potassium-Hctz] Rash ??? Latex Rash ??? Losartan Rash ??? Metformin Rash ??? Penicillins Rash ??? Pioglitazone Rash ??? Spironolactone Rash Past Medical History: Diagnosis Date ??? Anxiety [...] mammogram Description: 11/27/2008 ??? Vitamin D deficiency Past Surgical History: Procedure Laterality Date ??? BLADDER SURGERY ??? BREAST EXCISIONAL BIOPSY Left Benign 2008 ??? COLONOSCOPY 2019 Complete Colonoscopy ??? ELBOW ARTHROPLASTY Left ??? HYSTERECTOMY Total Abdominal Hysterectomy (Description: BSO) ??? LUMBAR DISCECTOMY 04/29/2012 Lt- L4/5 discectomy redo Lt- L5/S1 foraminotomy -Dr. Damien Berg ??? LUMBAR DISCECTOMY 06/17/2012 Re-do Lt- L4/[address] Damien Berg ??? OOPHORECTOMY ??? OTHER SURGICAL HISTORY Spinal Sterotaxis Stimulation Of Cord ??? SPINAL CORD STIMULATOR IMPLANT placement 2013, replacement 2014. Dr. Damien Berg ??? TUBAL ABDOMINAL LIGATION Family History Problem Relation Age of Onset ??? Hypertension Mother ??? Peripheral vascular disease Mother ??? Ulcers Mother ??? Kidney failure Mother ??? Lung disease Father ??? Diabetes Other type 2 ??? Kidney failure Maternal Grandmother Social History Socioeconomic History ??? Marital status: Spouse name: Not on file ??? Number of children: Not on file ??? Years of education: Not on file ??? Highest education level: Not on file Tobacco Use ??? Smoking status: Never Smoker ??? Smokeless tobacco: Never Used Vaping Use ??? Vaping Use: Never used Substance and Sexual Activity ??? Alcohol use: No ??? Drug use: No ??? Sexual activity: Defer Review of Systems Constitutional: Positive for activity change and fatigue. Negative for appetite change, chills, diaphoresis, fever and unexpected weight change. HENT: Negative for congestion, dental problem, drooling, ear discharge, ear pain, facial swelling, hearing loss, mouth sores, nosebleeds, postnasal drip, rhinorrhea, sinus pressure, sneezing, sore throat, tinnitus, trouble swallowing and voice change. Eyes: Negative for photophobia, pain, discharge, redness, itching and visual disturbance. Respiratory: Negative for apnea, cough, choking, chest tightness, shortness of breath, wheezing andstridor. Cardiovascular: Negative for chest pain, palpitations and leg swelling. Gastrointestinal: Positive for abdominal distention and constipation. Negative for abdominal pain, anal bleeding, blood in stool, diarrhea, nausea, rectal pain and vomiting. Endocrine: Positive for cold intolerance and heat intolerance. Negative for polydipsia, polyphagia and polyuria. Genitourinary: Positive for difficulty urinating. Negative for decreased urine volume, dysuria, enuresis, flank pain, frequency, genital sores, hematuria and urgency. Musculoskeletal: Positive for arthralgias, back pain and gait problem. Negative for joint swelling,myalgias, neck pain and neck stiffness. Skin: Negative for color change, pallor, rash and wound. Allergic/Immunologic: Positive for environmental allergies. Negative for food allergies and immunocompromised state. Neurological: Negative for dizziness, tremors, seizures, syncope, facial asymmetry, speech difficulty, weakness, light-headedness, numbness and headaches. Hematological: Negative for adenopathy. Does not bruise/bleed easily. Psychiatric/Behavioral: Negative for agitation, behavioral problems, confusion, decreased concentration, dysphoric mood, hallucinations, self-injury, sleep disturbance and suicidal ideas. The patientis not nervous/anxious and is not hyperactive. The following portions of the patient's history were reviewed and updated as appropriate: allergies, current medications, past family history, past medical history, past social history, past surgicalhistory and problem list. Physical Exam: BP 154/83 Pulse 86 Ht 157.5 cm (62.01 ) Wt 82.6 kg (182 lb 1.6 oz) LMP (LMP Unknown) BMI 33.30 kg/m?? GENERAL: Body habitus: obese Lower extremity edema: Right: trace; Left: trace Varicose veins: Right: none; Left: none Gait: She has a calcaneus gait on the left, with short stride, decreased pushoff Mental Status: awake and alert; oriented to person, place, and time, a vague historian Voice: clear SKIN: Lower extremity: Normal Hair Growth(lower extremity): Right:normal; Left: normal NAILS: Toenails: thick HEENT: Head: Normocephalic, atraumatic, without obvious abnormality. eye: normal external eye, no icterus ears:normal external ears PULM: Repiratory effort normal CV: Dorsalis Pedis: Right: 2+; Left:2+ Posterior Tibial: Right:2+; Left:2+ Capillary Refill: Brisk MSK: Hand:mild arthritis, Heberden's nodes Tibia: Right: tender over subcutaneous border; Left: tender over subcutaneous border Ankle: Right: non tender, ROM normal and motor function normal; Left: Mildly tender diffusely around the entire lower leg, no focal tenderness. Passive range of motion of the ankle shows more dorsiflexion compared with the right, plantarflexion to 20 degrees only, a few degrees inversion eversion. She has minimal active plantar flexion. At most the gastrocsoleus is 2+ out of 5. No function of thetoe flexors. Peroneals are 3+ out of 5 anterior tib and posterior tib are 4+ out of 5, EHL 4 out of5 EDL 4 out of 5 Foot: Right: non tender; Left: See ankle exam, no focal tenderness, mild diffuse tenderness, decreased plantarflexion NEURO: Heel Walking: Right: normal; Left: normal Toe Walking: Right: normal; Left: She is completely unable to get the heel off the floor Grants-Morris 5.07 monofilament test: Surprisingly intact to the Grants Morris fiber under metatarsal heads on both feet, and sensate on the heels bilaterally plantar surface Lower extremity sensation: diminished Reflexes: Biceps: Right: not tested; Left: not tested Quads: Right: not tested; Left: not tested Ankle: Right: not tested; Left: not tested Calf Atrophy:4.5 cm of calf atrophy on the left compared with the right Motor Function: See ankle exam Medical Decision Making Data Review: ordered and reviewed x-rays today, reviewed prior lab results, reviewed radiology images, reviewed radiology results and reviewed outside records Assessment and Plan/ Diagnosis/Treatment options: 1. Left leg weakness, left foot and leg pain As above I had to dig through the chart extensively to sort through her multiple problems. She has had a lot of unusual information given to her and I tried to sort out for her the factual problems..I wrote things down for her so she can keep the paper and refer to it. I explained to her she does not have a foot drop. She has what we call a calcaneus gait, which is essentially the opposite of a foot drop. She has absolutely no pushoff. I do think the brace needs to be permanent. I also thinkthe pain in her leg is neurogenic, I do not think there is any focal bone abnormality as a source of the pain. The tiny avulsion at the tip of the fibula healed. I explained that when the muscles in the leg are very weak, everything can be painful. The effort to walk is increased and this can increase pain in all the other muscles that have to try to work harder. She reports that the brace sometimes makes her on even and causes right hip pain, and I suggested she use an [id number] Dr. Winslow's pad in her right shoe to level her up. I explained the reason to wear the brace is because of the weakness, its not going to prevent a foot drop. I think it would be unlikely to develop a foot drop unless she had recurrence of the schwannoma which would be rare. Her neurologic deficit is belowthe level of the nerves that supply of the anterior tib etc. that are involved in the classic foot drop deficit. She asked me if the weakness would get better, I explained I think that is doubtful, but that is a question she should ask her neurosurgeon Dr. Ortiz. I also explained that she does not have severe arthritis in the ankle, it is not [id number] . She does not need a fusion and she does not need a replacement. The ankle joint cartilage is actually normal on the standing x-ray. Again I think the pain is neurogenic. She needs the brace to improve her gait deficiency. From an orthopedic standpoint unfortunately I do not have anything else to offer her. I hope I helped clarify the problem for her. 2. Uncontrolled type 2 diabetes mellitus with hyperglycemia ([facility]) As above we had a long discussion about diabetes, glucose control, carbohydrates etc. I encouraged her to improve glucose control to help slow down the progression of her gastroparesis and other diabetic complications. Radiology Ordered [] Radiology Reports Reviewed [] Radiology Images Reviewed [] Labs Reviewed [] Labs Ordered [] PCP Records Reviewed [] Provider Records Reviewed [] ER Records Reviewed [] Hospital Records Reviewed [] History Obtained From Family [] Phone conversation with Provider [] Records Requested [] Quin Flaherty MD documented in this encounter Plan of Treatment Upcoming Encounters Date Type Department Care Team (Late st Contact Info) Description 03/13/2024 2:45 PM EST Office Visit [facility] [address] [place] [address] Pj Ace MD [address] [facility] [address] [place] [address] documented as of this encounter Procedures Procedure Name Priority Date/Time Associated Diagnosis Comments XR ANKLE 2 VW LEFT Routine 12/13/2020 1: 22 PM EDT Left ankle pain, unspecified chronicity XR FOOT 2 VW LEFT Routine 12/13/2020 1:2 2 PM EDT Left foot pain documented in this encounter Results * XR Ankle 2 View Left (12/13/2020 1:22 PM EDT) Anatomical Region Laterality Modality Lower Extremities, Ankle Left Xray Narrative 12/13/2020 2:56 PM EDT Standing AP left ankle ordered for pain, shows no acute fractures, the tiny avulsion at the tip of the fibula appears healed, normal joint space, no tilt of the talus in the mortise, compared to films on the disc from 12/29/2019 us Quin Flaherty MD [facility] ORDERAB LES Final Result * XR Foot 2 View Left (12/13/2020 1:22 PM EDT) Anatomical Region Laterality Modality Lower Extremities, Foot Left Xray Narrative 12/13/2020 2:55 PM EDT Standing AP lateral left foot ordered for pain, shows moderate midfoot arthritis, significant osteopenia, no acute fractures, compared tofilms on the disc from 09/15/2020 us Quin Flaherty MD [facility] ORDERAB LES Final Result documented in this encounter Visit Diagnoses Diagnosis Left ankle pain, unspecified chronicity- Primary Left leg weakness Muscle weakness (generalized) Left foot pain Pain in soft tissues of limb Uncontrolled type 2 diabetes mellitus with hyperglycemia documented in this encounter Care Teams Still Worker Helper Relationship Specialty Start Date End Date Ev Augustin, RETAIL CASHIER ASSOCIATE [address] [place] [address] PCP - General Internal Medicine 04/12/18 08/18/21 documented as of this encounter
--- OUTSIDE RECORDS SUMMARY | 2024-02-20 09:09 | XMS_ITS | Encounter Summary ---
[facility] Address [address] [place] [id number] Care Team Providers Care Mother'S Helper Name Role Phone Alex Davis MD Primary Care Provider [phone] Encounter Details Date Type Department Care Team (Late st Contact Info) Description 10/13/2021 1:40 PM EDT Lab [facility] [address] [place] [address] Acid phosphatase elevated (Primary Dx) Social History Tobacco Use Types [...] Description 03/13/2024 2:45 PM EST Office Visit [facility] [address] [place] [address] [address] [place] [address] Pj Ace MD [address] [place] [address] [address] [place] [address] documented as of this encounter Procedures Procedure Name Priority Date/Time Associated Diagnosis Comments CBC WITH AUTO DIFFERENTIAL Routine 10/13/2021 1:43 PM EDT Acid phosphatase elevated CBC AND DIFFERENTIAL Routine 10/13/2021 1:43 PM EDT Acid phosphatase elevated IGG, IGA, IGM Routine 10/13/2021 1:43 PM EDT Acid phosphatase elevated documented in this encounter Results * (ABNORMAL) CBC Auto Differential (10/13/2021 1:43 PM EDT) [facility] WBC 7.02 3.40 - 10.80 10*3/mm3 10/13/2021 10:50 PM EDT [facility] RBC 5.13 3.77 - 5.28 10*6/mm3 10/13/2021 10:50 PM EDT [facility] Hemoglobin 15.1 12.0 - 15.9 g/dL 10/13/2021 10:50 PM EDT [facility] Hematocrit 45.4 34.0 - 46.6 % 10/13/2021 10:50 PM EDT [facility] MCV 88.5 79.0 - 97.0 fL 10/13/2021 10:50 PM EDT [facility] MCH 29.4 26.6 - 33.0 pg 10/13/2021 10:50 PM EDT [facility] MCHC 33.3 31.5 - 35.7 g/dL 10/13/2021 10:50 PM EDT [facility] RDW 11.7(L) 12.3 - 15.4 % 10/13/2021 10:50 PM EDT [facility] RDW-SD 37.7 37.0 - 54.0 fl 10/13/2021 10:50 PM EDT [facility] MPV 11.5 6.0 - 12.0 fL 10/13/2021 10:50 PM EDT [facility] Platelets 275 140 - 450 10*3/mm3 10/13/2021 10:50 PM EDT [facility] Neutrophil % 66.8 42.7 - 76.0 % 10/13/2021 10:50 PM EDT [facility] Lymphocyte % 25.2 19.6 - 45.3 % 10/13/2021 10:50 PM EDT [facility] Monocyte % 5.0 5.0 - 12.0 % 10/13/2021 10:50 PM EDT [facility] Eosinophil % 1.6 0.3 - 6.2 % 10/13/2021 10:50 PM EDT [facility] Basophil % 1.0 0.0 - 1.5 % 10/13/2021 10:50 PM EDT [facility] Immature Grans % 0.4 0.0 - 0.5 % [facility] Neutrophils, Absolute 4.69 1.70 - 7.00 10*3/mm3 10/13/2021 10:50 PM [facility] Lymphocytes, Absolute 1.77 0.70 - 3.10 10*3/mm3 10/13/2021 10[facility] Monocytes, Absolute 0.35 0.10 - 0.90 10*3/mm3 10/13/2021 10:50 PM T [facility] Eosinophils, Absolute 0.11 0.00 - 0.40 10*3/mm3 10/13/2021 10:50 PM [facility] Basophils, Absolute 0.07 0.00 - 0.20 10*3/mm3 10/13/2021 10:50 PM [facility] Immature Grans, Absolute 0.03 0.00 - 0.05 10*3/mm3 10/13/2021 10:50 PM [facility] nRBC 0.0 0.0 - 0.2 /100 WBC 10/13/2021 10:50 PM [facility] Blood Venipuncture / Unknown 10/13/2021 1:43 PM EDT 10/13/2021 1:47 PM EDT Umesh L [place] FILLER SHREDDER MACHINE LAB BLOOD ORDERABLES Rosie l Result Performing Organization Address [facility] de Phone Number [facility]
[address] [place] [address], * IgG, IgA, IgM (10/13/2021 1:43 PM EDT) IgG 1,052 700 - 1,600 mg/dL 10/13/2021 11:04 PM EDT [facility] IgM 137 40 - 230 mg/dL 10/13/2021 11:04 PM EDT [facility] IgA 249 70 - 400 mg/dL 10/13/2021 11:04 PM EDT [facility] Blood Venipuncture / Unknown 10/13/2021 1:43 PM EDT 10/13/2021 1:47 PM EDT Umesh [place] FILLER SHREDDER MACHINE LAB BLOOD ORDERABLES Rosie l Result Performing Organization Address [facility] Co de Phone Number [facility]
[address] [place] [address], documented in this encounter Visit Diagnoses Diagnosis Acid phosphatase elevated- Primary Other nonspecific abnormal serum enzyme levels documented in this encounter Care Teams Mother'S Helper Relationship Specialty Start Date End Date Alex Davis MD [address] [place] [address] PCP - General Family Medicine 09/05/21 documented as of this encounter
--- OUTSIDE RECORDS SUMMARY | 2024-02-20 09:09 | XMS_ITS | Encounter Summary ---
[facility] Address [address] [place] [address] Care Team Providers Care Network Security Engineer Name Role Phone Alex Davis MD Primary Care Provider Reason for Visit * Reason Onset Date Comments MED QUESTION 09/06/2021 Encounter Details Date Type Department Care Team (Late st Contact Info) Description 09/06/2021 Telephone [facility] [address] [place] [address] Alex Davis MD [address] [place] [address] MED QUESTION Social History Tobacco Use Types Packs/Day [...] Telephone Encounter - Nancy Das LPN - 09/06/2021 3:49 PM EDT Spoke with pt she is doing 35 and will start from there * Telephone Encounter - Alex Davis MD - 09/06/2021 1:55 PM EDT I thought she had been taking 35 units, this is her starting dose and then titrated up from there based on written instructions she was given * Telephone Encounter - Priscila Romeo RegSched Rep - 09/06/2021 11:20 AM EDT Caller: Gertrudis Gonzalez Relationship: Self Best call back number: [phone] What is the best time to reach you: ANYTIME Who are you requesting to speak with (clinical staff, provider, specific staff member): CLINICAL STAFF What was the call regarding: PATIENT WOULD LIKE SOME CLARIFICATION ON HER PRESCRIPTION FOR LANTUS. SHE IS NEEDING TO KNOW WHAT THE STARTING DOSE IS. Do you require a callback: YES documented in this encounter Plan of Treatment Upcoming Encounters Date Type Department Care Team (Late st Contact Info) Description 03/13/2024 2:45 PM EST Office Visit [facility] [address] [facility] [place] [address] Pj Ace MD [address] [facility] [address] [address] documented as of this encounter Visit Diagnoses Diagnosis Uncontrolled type 2 diabetes mellitus with hyperglycemia documented in this encounter Care Teams Network Security Engineer Relationship Specialty Start Date End Date Alex Davis MD [address] [place] [address] PCP - General Family Medicine 09/05/21 documented as of this encounter
--- OUTSIDE RECORDS SUMMARY | 2024-02-20 09:09 | XMS_ITS | Encounter Summary ---
[facility] [address] [place] [address] Care Team Providers Care Investigative Writer Name Role Phone Ev Augustin APRN Primary Care Provider [phone] Reason for Visit * Reason Onset Date Comments Med Refill 08/02/2021 Encounter Details Date Type Department Care Team (Late st Contact Info) Description 08/02/2021 Refill [facility] [address] [place] [address] [place] [address] [place] [address] Postlaminectomy syndrome of lumbar region; Herniated [...] encounter Miscellaneous Notes * Telephone Encounter - Maxine Grijalva DO - 08/02/2021 9:12 AM EDT She had not seen Benita since Out of window to refill control. She has an appt 08/19 with new doctor * Telephone Encounter - Nini Hutchinson MA - 08/02/2021 8:56 AM EDT She has seen Benita in the past and is establishing care in [facility] on 08/19/2021. Last filled on 01/10/21 for 90 with 1 refill documented in this encounter Plan of Treatment Upcoming Encounters Date Type Department Care Team (Late st Contact Info) Description 03/13/2024 2:45 PM EST Office Visit [facility] [address] [place] [address] [address] Pj Ace MD [address] [facility] [address] [address] documented as of this encounter Visit Diagnoses Diagnosis Postlaminectomy syndrome of lumbar region Postlaminectomy syndrome, lumbar region Herniated lumbar intervertebral disc Displacement of lumbar intervertebral disc without myelopathy documented in this encounter Care Teams Investigative Writer Relationship Specialty Start Date End Date Ev Augustin, MUSICAL ENGINEER [address] [place] [address] PCP - General Internal Medicine 04/12/18 08/18/21 documented as of this encounter
--- OUTSIDE RECORDS SUMMARY | 2024-02-20 09:09 | XMS_ITS | Encounter Summary ---
Author Organization [facility] Address [address] [place] [address] Care Team Providers Care Respiratory Director Name Role Phone Ev Augustin APRN Primary Care Provider [phone] Encounter Details Date Type Department Care Team (Late Contact Info) Description 04/25/2021 1:45 PM EST Lab [facility] [address] [facility] [address] [place] [id number] Social History Tobacco Use Types Packs/Day Years [...] Office Visit [facility] [address] [place] [address] Pj Ace MD [address] [facility] [address] [place] [address] documented as of this encounter Visit Diagnoses Not on filedocumented in this encounter Care Teams Respiratory Director Relationship Specialty Start Date End Date Ev Augustin APRN [address] [place] [address] PCP - General Internal Medicine 04/12/18 08/18/21 documented as of this encounter
--- OUTSIDE RECORDS SUMMARY | 2024-02-20 09:09 | XMS_ITS | Encounter Summary ---
Author Organization [facility] yste Address [address] [place] [address] Care Team Providers Care Solar Installation Helper Name Role Phone vE Augustin APRN Primary Care Provider [phone] Encounter Details Date Type Department Care Team (Late st Contact Info) Description 07/26/2021 3:00 PM EDT Lab [facility] STATION [address] [facility] [address] [place] [address] Social History Tobacco Use Types Packs/Day Years [...] Description 03/13/2024 2:45 PM EST Office Visit [facility] [address] [place] [address] Pj Ace MD [address] [facility] [address] [place] [address] documented as of this encounter Visit Diagnoses Not on filedocumented in this encounter Care Teams Solar Installation Helper Relationship Specialty Start Date End Date Ev Augustin APRN [address] [place] [address] PCP - General Internal Medicine 04/12/18 08/18/21 documented as of this encounter
--- OUTSIDE RECORDS SUMMARY | 2024-02-20 09:09 | XMS_ITS | Encounter Summary ---
[facility] Address [address] [place] [id number] Care Team Providers Care Membership Secretary Name Role Phone Ev Augustin APRN Primary Care Provider [phone] Encounter Details Date Type Department Care Team (Late st Contact Info) Description 02/01/2021 Telephone [facility] ED [address] [facility] [address] [place] [address] Mirna Goodman, RN Social History Tobacco Use Types Packs/Day [...] Miscellaneous Notes * Telephone Encounter - Mirna Goodman RN - 02/01/2021 5:09 PM EDT Phone call to Ms. Gonzalez to check in on Vgo supplies and scheduling appt for training. Pt states she received her Vgo supplies at the end of last week and is ready to schedule training. She does not have availability this week for training--scheduled for Wednesday 02/07. Pt was advised to bring all vgosupplies and vial of her insulin, which she confirms she has picked up from pharmacy. Mirna Goodman RN,[facility] Loading Manager documented in this encounter Plan of Treatment Upcoming Encounters Date Type Department Care Team (Late st Contact Info) Description 03/13/2024 2:45 PM EST Office Visit [facility] [address] [place] [address] [address] Pj Ace MD [address] [facility] [address] [place] [address] documented as of this encounter Visit Diagnoses Not on filedocumented in this encounter Care Teams Membership Secretary Relationship Specialty Start Date End Date Ev Augustin, PATIENT DAY COORDINATOR [address] [place] [address] PCP - General Internal Medicine 04/12/18 08/18/21 documented as of this encounter
--- OUTSIDE RECORDS SUMMARY | 2024-02-20 09:09 | XMS_ITS | Encounter Summary ---
[facility] Address [address] [place] [address] Care Team Providers Care Child Care Development Specialist Name Role Phone Alex Davis MD Primary Care Provider [phone] Reason for Referral * Diagnostic Imaging (Routine) - Closed Specialty Diagnoses / Procedures Referred By Contac t Referred To Contact Radiology Diagnoses Screening mammogram for breast cancer Procedures Mammo Screening Digital Tomosynthesis Bilateral With CAD Alex Davis MD [address] [place] [address] Phone: tel: fax: [place] [address] Phone: tel: Referral ID Status Reason Start Date Expiration Date Visits Re quested Visits Authorized [id number] Closed 09/05/2021 09/05/2022 1 1 * Consultation (Routine) - Closed Specialty Diagnoses / Procedures Referred By Contac t Referred To Contact Cardiology Diagnoses Heart palpitations Alex Davis MD [address] [place] [address] Phone: tel: fax: Pj Ace MD [address] [place] [address] Phone: tel: fax: Referral ID Status Reason Start Date Expiration Date V isits Requested Visits Authorized [id number] Closed Specialty Services Required 09/05/2021 09/05/2022 1 1 * Consultation (Routine) - Closed Specialty Diagnoses / Procedures Referred By Contac t Referred To Contact Gastroenterology Diagnoses Gastroparesis Elevated LFTs Alex Davis MD [address] [place] [address] Phone: tel: fax: Umesh Fermin, TEACHERS' ASSISTANT Phone: tel: fax: Referral ID Status Reason Start Date Expiration Date V isits Requested Visits Authorized [id number] Closed Specialty Services Required 09/05/2021 09/05/2022 1 1 Reason for Visit * Reason Comments Establish Care Nasal Congestion Encounter Details Date Type Department Care Team (Latest Contact Info) Description 09/05/2021 11:00 AM EDT Office Visit [facility] [address] [place] [phone] Alex Davis MD [address] [place] [address] 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, without long-term current use of insulin (Primary Dx); Gastroparesis; Elevated LFTs; Heart palpitations; Screening mammogram for breast cancer; Postlaminectomy syndrome of lumbar region; Herniated lumbar [...] Reading Time Taken Comments Blood Pressure 142/82 09/05/2021 11:09 AM EDT Pulse 74 09/05/2021 11:09 AM EDT Temperature 36.4 ??C (97.5 ??F) 09/05/2021 11:09 AM E DT Respiratory Rate 14 09/05/2021 11:09 AM EDT Oxygen Saturation 94% 09/05/2021 11:09 AM EDT Inhaled Oxygen Concentration - - Weight 85.4 kg (188 lb 3.2 oz) 09/05/2021 11:09 AM EDT Height 157.5 cm (5' 2.01 ) 09/05/2021 11:09 AM E DT Body Mass Index 34.41 09/05/2021 11:09 AM EDT documented in this encounter Progress Notes * Alex Davis MD - 09/05/2021 11:00 AM EDT Subjective Gertrudis Gonzalez is a 65 y.o. female. History of Present Illness She is taking 35 units of lantus and then sliding scale humalog 16 TID She is on januvia She is willing to take her lantus in the AM They have not changed her lantus recently dexcom goes off through the night as her sugars are high She has a history of elevated LFTS and newer diagnosis of gastroparesis She would like a local GI doctor to treat this Her mood has been more stressed recently as well Dealing with chronic pain and she sees Dr. Diaz recently She notes that since starting bisoprol she has felt worse, sugars have been higher, she has had more SOA Her flower cheniller started this but just feels worse with it. Would like a local flower cheniller with the [facility] The following portions of the patient's history [...] eyes, without long-term current use of insulin (HCC) (Primary) - metFORMIN (Glucophage) 500 MG tablet; 1/2 PO BID 2 weeks then 1 PO BID Dispense: 60 tablet; Refill: 3 2. Gastroparesis - Ambulatory Referral to Gastroenterology 3. Elevated LFTs - Ambulatory Referral to Gastroenterology 4. Heart palpitations - Ambulatory Referral to Cardiology 5. Screening mammogram for breast cancer - Mammo Screening Digital Tomosynthesis Bilateral With CAD; Future 6. Postlaminectomy syndrome of lumbar region - traMADol (ULTRAM) 50 MG tablet; Take 1 tablet by mouth Every 8 (Eight) Hours As Needed for Moderate Pain . Dispense: 90 tablet; Refill: 2 - meloxicam (MOBIC) 7.5 MG tablet; Take 1 tablet by mouth Daily. Dispense: 90 tablet; Refill: 1 7. Herniated lumbar intervertebral disc - traMADol (ULTRAM) 50 MG tablet; Take 1 tablet by mouth Every 8 (Eight) Hours As Needed for Moderate Pain . Dispense: 90 tablet; Refill: 2 - meloxicam (MOBIC) 7.5 MG tablet; Take 1 tablet by mouth Daily. Dispense: 90 tablet; Refill: 1 DM not controlled, will slowly add low dose metformin to see if control is better. Written instructions on how to titrate her insulin given and she will start taking this in the AM> She is taking fast acting without any directive at this time, may need sliding scale instructions in future. [facility] continue this. Will work on GI referral and cardiology referral for chronic issues. Plan to stop zebeta as she felt more SE than bnenefits of this medicine Ok tramadol for pain, GENE reviewed. Refilled mobic as well. She is seeing Dr. iDaz for ongoing pain and he may take over meds in future. documented in this encounter Plan of Treatment Upcoming Encounters Date Type Department Care Team (Late st Contact Info) Description 03/13/2024 2:45 PM EST Office Visit [facility] [address] [place] [address] [place] [address] Pj Ace MD [address] [facility] [address] [place] [address] documented as of this encounter Results * Mammo Screening Digital [...] both eyes, without long-term current use of insulin- Primary Gastroparesis Elevated LFTs Other abnormal blood chemistry Heart palpitations Palpitations Screening mammogram for breast cancer Postlaminectomy syndrome of lumbar region Postlaminectomy syndrome, lumbar region Herniated lumbar intervertebral disc Displacement of lumbar intervertebral disc without myelopathy Screening mammogram for breast cancer documented in this encounter Care Teams Child Care Development Specialist Relationship Specialty Start Date End Date Alex Davis MD [address] [place] [address] PCP - General Family Medicine 09/05/21 documented as of this encounter
--- OUTSIDE RECORDS SUMMARY | 2024-02-20 09:09 | XMS_ITS | Encounter Summary ---
[facility] Address [address] [place] [address] Care Team Providers Care Recyclable Products Sorter Name Role Phone Ev Augustin APRN Primary Care Provider [phone] Reason for Visit * Reason Comments Med Refill Encounter Details Date Type Department Care Team (Late Contact Info) Description 06/15/2021 Refill [facility] [address] [place] [address] Ev Augustin, WAREHOUSE GENERAL LABORER [address] [place], [place] [id number] RLS (restless legs syndrome) Social History Tobacco [...] Visit [facility] [address] [place] [address] Pj Ace MD [address] [facility] [address] [place] [address] documented as of this encounter Visit Diagnoses Diagnosis RLS (restless legs syndrome) Restless legs syndrome (RLS) documented in this encounter Care Teams Recyclable Products Sorter Relationship Specialty Start Date End Date Ev Augustin APRN [address] [place] [address] PCP - General Internal Medicine 04/12/18 08/18/21 documented as of this encounter
--- OUTSIDE RECORDS SUMMARY | 2024-02-20 09:09 | XMS_ITS | Encounter Summary ---
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, with long-term current use of insulin (Primary Dx); Essential hypertension; Mixed hyperlipidemia Social History Tobacco Use Types [...] Sign Reading Time Taken Comments Blood Pressure 138/76 11/09/2021 9:57 AM EDT Pulse 109 11/09/2021 9:57 AM EDT Temperature 36.8 ??C (98.2 ??F) 11/09/2021 9:57 AM ED T Respiratory Rate 18 11/09/2021 9:57 AM EDT Oxygen Saturation 94% 11/09/2021 9:57 AM EDT Inhaled Oxygen Concentration - - Weight 84.2 kg (185 lb 9.6 oz) 11/09/2021 9:57 A M EDT Height 157.5 cm (5' 2.01 ) 11/09/2021 9:57 AM ED T Body Mass Index 33.94 11/09/2021 9:57 AM EDT documented in this encounter Progress Notes * Alex Davis MD - 11/09/2021 10:00 AM EDT Subjective Gertrudis Gonzalez is a 65 y.o. female. History of Present Illness Diabetes Mellitus Type II, Follow-up: Gertrudis Gonzalez is a 65 y.o. female who is here for follow-up of Type 2 diabetes mellitus. Current symptoms/problems include none and have been stable. Patient is adherent with medications. Known diabetic complications: retinopathy Cardiovascular risk factors: diabetes mellitus, dyslipidemia, hypertension and obesity (BMI >= 30 kg/m2) Current diabetic medications include lantus 55 units, metformin 500 BID and januvia 100. Current monitoring regimen: home blood tests - daily Home blood sugar records: fasting range: 120-140 Any episodes of hypoglycemia? no Eye exam [...] Hyperlipidemia Gertrudis indicates her exercise level as irregularly. Diet: trying to eat better Patient is [...] current use of insulin (HCC) (Primary) - Insulin Glargine (LANTUS SOLOSTAR) 100 UNIT/ML injection pen; Inject 60 Units under the skin intothe appropriate area as directed Daily. Dispense: 30 pen; Refill: 1 - SITagliptin-metFORMIN HCl ER (Janumet XR) 100-1000 MG tablet; Take 1 tablet by mouth Daily. Dispense: 90 tablet; Refill: 1 - Comprehensive Metabolic Panel - Hemoglobin A1c 2. Essential hypertension - CBC & Differential - Comprehensive Metabolic Panel - losartan (COZAAR) 100 MG tablet; Take 1 tablet by mouth Daily. Dispense: 90 tablet; Refill: 1 3. Mixed hyperlipidemia - Comprehensive Metabolic Panel - Lipid Panel - atorvastatin (Lipitor) 40 MG tablet; Take 1 tablet by mouth Every Night. Dispense: 90 tablet; Refill: 1 her glucose numbers have improved at home, she is currently on 55 units lantus and the januvia and metformin. Will combine this to one pill and discussed further titration of her insulin. recheck labs today but expect even better numbers in 3 months! BP stable on cozaar, will continue this Refilled lipitor and lipids ordered documented in this encounter Plan of Treatment Upcoming Encounters Date Type Department Care Team (Late st Contact Info) Description 03/13/2024 2:45 PM EST Office Visit [facility] [address] [facility] [place] [place] [address] Pj Ace MD [address] [facility] [address] [facility] [address] [place] [address] documented as of this encounter Procedures Procedure Name Priority Date/Time Associated Diagnosis Comments CBC AND DIFFERENTIAL Routine 11/09/2021 10:23 AM EDT Essential hypertension HEMOGLOBIN A1C Routine 11/09/2021 10:23 AM EDT 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, with long-term current use of insulin LIPID PANEL Routine 11/09/2021 10:23 AM EDT Mixed hyperlipidemia COMPREHENSIVE METABOLIC PANEL Routine 11/09/2021 10:23 AM EDT 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, with long-term current use of insulin Essential hypertension Mixed hyperlipidemia documented in this encounter Results * (ABNORMAL) Lipid Panel (11/09/2021 10:23 AM EDT) Total Cholesterol 197 0 - 200 mg/dL [facility] Comment: [...] 160-189 mg/dL Very High ?>189 mg/dL Triglycerides 169(H) 0 - 150 mg/dL [facility] HDL Cholesterol 50 40 - 60 mg/dL [facility] VLDL Cholesterol Bill 30 5 - 40 mg/dL [facility] LDL Chol Calc (NIH) 117(H) 0 - 100 mg/dL [facility] Blood 11/09/2021 10:2 3 AM EDT 11/09/2021 Narrative [facility] ([facility]) - 11/09/2021 8:08 PM EDT Performed at: ??[address] - [address] ??[id number] Records Management Clerk: Lane Haile MD, Phone: ??[phone] Patient Fasting: ??Y Alex Davis MD LAB BLOOD ORDERABLES Final Resu lt [facility] ([facility]ULATORY) [address] [place] [address], [facility] [address] [place] [address], * (ABNORMAL) Hemoglobin A1c (11/09/2021 10:23 AM EDT) [facility] Hemoglobin A1C 7.80(H) 4.80 - 5.60 % [facility] Comment: Hemoglobin A1C Ranges: Increased Risk for Diabetes ??5.7% to 6.4% Diabetes ? >= 6.5% Diabetic Goal ?< 7.0% Blood 11/09/2021 10:2 3 AM EDT 11/09/2021 Narrative [facility] ([facility]) - 11/09/2021 8:08 PM EDT Performed at: ??01 - [facility] [address] [place], [place] ??[id number] Records Management Clerk: Lane Haile MD, Phone: ??[phone] Patient Fasting: ??Y us Alex Davis MD LAB BLOOD ORDERABLES Final Resu lt [facility] (AMBULATORY) [address] [place] [address], [place] [phone] [facility] [address] [place] [address], [place] [phone] * (ABNORMAL) Comprehensive Metabolic Panel (11/09/2021 10:23 AM EDT) Glucose 145(H) 65 - 99 mg/dL [facility] BUN 15 8 - 23 mg/dL [facility] Creatinine 0.72 0.57 - 1.00 mg/dL [facility] EGFR Result 93.5 >60.0 mL/min/1.7 3 [facility] Comment: National Kidney Foundation and [place] Society of Nephrology (ASN) Task Force recommended calculation based on the Chronic Kidney Disease Epidemiology Collaboration (CKD-EPI) equation refit without adjustment for race. GFR Normal >60 Chronic Kidney Disease <60 Kidney Failure <15 BUN/Creatinine Ratio 20.8 7.0 - 25.0 [facility] Sodium 140 136 - 145 mmol/L [facility] Potassium 4.6 3.5 - 5.2 mmol/L [facility] Comment: Slight hemolysis detected by analyzer. Results may be affected. Chloride 101 98 - 107 mmol/L [facility] Total CO2 25.9 22.0 - 29.0 mmol/L [facility] Calcium 10.3 8.6 - 10.5 mg/dL [facility] Total Protein 7.0 6.0 - 8.5 g/dL [facility] Albumin 4.40 3.50 - 5.20 g/dL [facility] Globulin 2.6 gm/dL [facility] A/G Ratio 1.7 g/dL [facility] Total Bilirubin 0.5 0.0 - 1.2 mg/dL [facility] Alkaline Phosphatase 144(H) 39 - 117 U/L [facility] AST (SGOT) 69(H) 1 - 32 U/L [facility] Comment: Slight hemolysis detected by analyzer. Results may be affected. ALT (SGPT) 75(H) 1 - 33 U/L [facility] Blood 11/09/2021 10:2 3 AM EDT 11/09/2021 Narrative [facility] (AMBULATORY) - 11/09/2021 8:08 PM EDT Performed at: ??01 - [place] [address] [place], [place] ??[id number] Records Management Clerk: Lane Haile MD, Phone: ??[phone] Patient Fasting: ??Y us Alex Davis MD LAB BLOOD ORDERABLES Final Resu lt [facility] (AMBULATORY) [address] [place] [address], [facility] [address] [place] [address], * CBC & Differential (11/09/2021 10:23 AM EDT) WBC 7.50 3.40 - 10.80 10*3/mm3 [facility] RBC 5.27 3.77 - 5.28 10*6/mm3 [facility] Hemoglobin 15.0 12.0 - 15.9 g/dL [facility] Hematocrit 46.5 34.0 - 46.6 % [facility] MCV 88.2 79.0 - 97.0 fL [facility] MCH 28.5 26.6 - 33.0 pg [facility] MCHC 32.3 31.5 - 35.7 g/dL [facility] RDW 12.3 12.3 - 15.4 % [facility] Platelets 257 140 - 450 10*3/mm3 [facility] Neutrophil Rel % 70.6 42.7 - 76.0 % [facility] Lymphocyte Rel % 21.3 19.6 - 45.3 % [facility] Monocyte Rel % 5.6 5.0 - 12.0 % [facility] Eosinophil Rel % 1.2 0.3 - 6.2 % [facility] Basophil Rel % 0.9 0.0 - 1.5 % [facility] Neutrophils Absolute 5.29 1.70 - 7.00 10*3/mm3 [facility] Lymphocytes Absolute 1.60 0.70 - 3.10 10*3/mm3 [facility] Monocytes Absolute 0.42 0.10 - 0.90 10*3/mm3 [facility] Eosinophils Absolute 0.09 0.00 - 0.40 10*3/mm3 [facility] Basophils Absolute 0.07 0.00 - 0.20 10*3/mm3 [facility] Immature Granulocyte Rel % 0.4 0.0 - 0.5 % [facility] Immature Grans Absolute 0.03 0.00 - 0.05 10*3/mm3 [facility] nRBC 0.1 0.0 - 0.2 /100 WBC [facility] Blood 11/09/2021 10:2 3 AM EDT 11/09/2021 Narrative [facility] ([facility]) - 11/09/2021 8:08 PM EDT Performed at: ??[address] - [address] ??[id number] Records Management Clerk: Lane Haile MD, Phone: ??[phone] Patient Fasting: ??Y us Alex Davis MD LAB BLOOD ORDERABLES Final Resu lt [facility] ([facility]) [address] [place] [address], [place] [phone] [facility] [address] [place] [address], [place] [phone] documented in this encounter Visit Diagnoses Diagnosis 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
--- OUTSIDE RECORDS SUMMARY | 2024-02-20 09:10 | XMS_ITS | Encounter Summary ---
[facility] Address [address] [place] [address] Care Team Providers Care Mink Farmer Name Role Phone Ev Augustin APRN Primary Care Provider [phone] Reason for Visit * Reason Comments Med Refill Encounter Details Date Type Department Care Team (Late st Contact Info) Description 04/05/2020 Refill [facility] [address] [place] [address] Ev Augustin, VASILE [address] [place] [phone] RLS (restless legs syndrome); Postlaminectomy syndrome of lumbar region; Herniated lumbar intervertebral disc Social History Tobacco Use Types Packs/Day Years Used Date Smoking Tobacco: Never Smokeless Tobacco: Never Alcohol Use Standard Drinks/Week Comments No 0 (1 standard drink = 0.6 oz pur e alcohol) PHQ-2 Answer Date Recorded PHQ-2 Score 1 11/21/2019 Comments No Sex and Gender Information Value Date Recorded Sex Assigned at Not on file Legal Sex Female 10:25 AM EDT Gender Identity Not on file Sexual Orientation Not on file documented as of this encounter Miscellaneous Notes * Telephone Encounter - Lida Al - 04/06/2020 8:46 AM EST Last Office Visit: 03/02/20 Next Office Visit: 07/16/20 Labs completed in past 6 months? yes Labs completed in past year? yes Last Refill Date: 04/22/19 Quantity: Refills: Pharmacy: documented in this encounter Plan of Treatment Upcoming Encounters Date Type Department Care Team (Late st Contact Info) Description 03/13/2024 2:45 PM EST Office Visit [facility] [address] [place] [address] [address] [place] [address] Pj Ace MD [address] [facility] [address] [place] [address] documented as of this encounter Visit Diagnoses Diagnosis RLS (restless legs syndrome) Restless legs syndrome (RLS) Postlaminectomy syndrome of lumbar region Postlaminectomy syndrome, lumbar region Herniated lumbar intervertebral disc Displacement of lumbar intervertebral disc without myelopathy documented in this encounter Care Teams Mink Farmer Relationship Specialty Start Date End Date Ev uAgustin APRN [address] [place] [address] PCP - General Internal Medicine 04/12/18 08/18/21 documented as of this encounter
--- OUTSIDE RECORDS SUMMARY | 2024-02-20 09:10 | XMS_ITS | Encounter Summary ---
[facility] Address [address] [place] [id number] Care Team Providers Care Museum Exhibit Designer Name Role Phone Ev Augustin APRN Primary Care Provider [phone] Encounter Details Date Type Department Care Team (Late st Contact Info) Description 05/28/2020 9:45 AM EST Lab [facility] [address] [place] [address] Erythrocytosis; Elevated ferritin Social History Tobacco Use Types Packs/Day Years Used Date Smoking Tobacco: Never Smokeless Tobacco: Never Alcohol Use Standard Drinks/Week Comments No 0 (1 standard drink = 0.6 oz pur e alcohol) PHQ-2 Answer Date Recorded Retired Total Score 0 05/28/2020 Comments No Sex and Gender Information Value Date Recorded Sex Assigned at Not on file Legal Sex Female 10:25 AM EDT Gender Identity Not on file Sexual Orientation Not on file documented as of this encounter Plan of Treatment Upcoming Encounters Date Type Department Care Team (Late st Contact Info) Description 03/13/2024 2:45 PM EST Office Visit [facility] [address] [place] [address] Pj Ace MD [address] [place] [address] documented as of this encounter Procedures Procedure Name Priority Date/Time Associated Diagnosis Comments CBC WITH AUTO DIFFERENTIAL Routine 05/28/2020 9:45 AM EST Erythrocytosis Elevated ferritin IRON PROFILEC Routine 05/28/2020 9:45 AM EST Erythrocytosis Elevated ferritin CBC AND DIFFERENTIAL Routine 05/28/2020 9:45 AM EST Erythrocytosis Elevated ferritin FERRITIN Routine 05/28/2020 9:45 AM EST Erythrocytosis Elevated ferritin documented in this encounter Results * (ABNORMAL) CBC Auto Differential (05/28/2020 9:45 AM EST) Pathologist [facility] WBC 7.80 3.40 - 10.80 10*3/mm3 05/28/2020 9:50 AM EST [facility] RBC 5.70(H) 3.77 - 5.28 10*6/mm3 05/28/2020 9:50 AM EST [facility] Hemoglobin 16.4(H) 12.0 - 15.9 g/dL 05/28/2020 9:50 AM EST [facility] Hematocrit 49.9(H) 34.0 - 46.6 % 05/28/2020 9:50 AM EST [facility] RDW 13.4 12.3 - 15.4 % 05/28/2020 9:50 AM EST [facility] MCV 87.6 79.0 - 97.0 fL 05/28/2020 9:50 AM EST [facility] MCH 28.8 26.6 - 33.0 pg 05/28/2020 9:50 AM EST [facility] MCHC 32.9 31.5 - 35.7 g/dL 05/28/2020 9:50 AM EST [facility] MPV 8.5 6.0 - 12.0 fL 05/28/2020 9:50 AM EST [facility] Platelets 254 140 - 450 10*3/mm3 05/28/2020 9:50 AM EST [facility] Neutrophil % 68.3 42.7 - 76.0 % 05/28/2020 9:50 AM EST [facility] Lymphocyte % 26.3 19.6 - 45.3 % 05/28/2020 9:50 AM EST [facility] Monocyte % 5.4 5.0 - 12.0 % 05/28/2020 9:50 AM EST [facility] Neutrophils, Absolute 5.30 1.70 - 7.00 10*3/mm3 05/28/2020 9:50 AM EST [facility] Lymphocytes, Absolute 2.10 0.70 - 3.10 10*3/mm3 05/28/2020 9:50 AM EST [facility] Monocytes, Absolute 0.40 0.10 - 0.90 10*3/mm3 05/28/2020 9:50 AM EST [facility] Blood Venipuncture / Unknown 05/28/2020 9:45 AM EST 05/28/2020 9:45 AM EST Yoanna Mccoy APRN LAB BLOOD ORDERABLES Final Result [facility]
[address] [place] [address], * (ABNORMAL) Iron Profile (05/28/2020 9:45 AM EST) Pathologist [facility] Iron 68 37 - 145 mcg/dL 05/28/2020 11:01 AM EST [facility] Iron Saturation (TSAT) 16(L) 20 - 50 % 05/28/2020 11:01 AM EST [facility] Transferrin 280 200 - 360 mg/dL 05/28/2020 11:01 AM EST [facility] TIBC 417 298 - 536 mcg/dL 05/28/2020 11:01 AM EST [facility] Blood Venipuncture / Unknown 05/28/2020 9:45 AM EST 05/28/2020 9:45 AM EST us Yoanna M Darius TRANSMISSION MAINTENANCE SUPERVISOR LAB BLOOD ORDERABLES Final Result [facility]
[address] [place] [address], * (ABNORMAL) Ferritin (05/28/2020 9:45 AM EST) Ferritin 164.10(H) 13.00 - 150.00 ng/mL 05/28/2020 10:56 AM EST [facility] Blood Venipuncture / Unknown 05/28/2020 9:45 AM EST 05/28/2020 9:45 AM EST Narrative [facility] - 05/28/2020 10:56 AM EST Results may be falsely decreased if patient taking Biotin. Yoanna Mccoy TRANSMISSION MAINTENANCE SUPERVISOR LAB BLOOD ORDERABLES Final Result Performing Organization Address [facility] Co de Phone Number [facility]
[address] [place] [address], documented in this encounter Visit Diagnoses Diagnosis Erythrocytosis Polycythemia, secondary Elevated ferritin Other abnormal blood chemistry documented in this encounter Care Teams Museum Exhibit Designer Relationship Specialty Start Date End Date Ev Augustin APRN [address] [place] [address] PCP - General Internal Medicine 04/12/18 08/18/21 documented as of this encounter
--- OUTSIDE RECORDS SUMMARY | 2024-02-20 09:10 | XMS_ITS | Encounter Summary ---
[facility] Address [address] [place] [address] Care Team Providers Care Case Resource Manager Name Role Phone Ev Augustin APRN Primary Care Provider [phone] [phone] Reason for Visit * Reason Comments Med Refill Encounter Details Date Type Department Care Team (Late st Contact Info) Description 06/02/2020 Refill [facility] [address] [place] [address] Ev Augustin, PIPING MANAGER [address] [place] [address] Postlaminectomy syndrome of lumbar region; [...] encounter Miscellaneous Notes * Telephone Encounter - Xiao Britton MA - 06/02/2020 4:24 PM EST Last appointment: 03/02/20 Next appointment: 07/16/20 Abrahan: 10/20/19 UDS:06/14/18 CSA: 7/20/20 Last Refill: 04/06/20 Quantity: 90 3 times daily prn Refills: 0 documented in this encounter Plan of Treatment Upcoming Encounters Date Type Department Care Team (Late st Contact Info) Description 03/13/2024 2:45 PM EST Office Visit [facility] [address] [place] [address] [place] [address] Pj Ace MD [address] [facility] [address] [place], [place] [id number] documented as of this encounter Visit Diagnoses Diagnosis Postlaminectomy syndrome of lumbar region Postlaminectomy syndrome, lumbar region Herniated lumbar intervertebral disc Displacement of lumbar intervertebral disc without myelopathy documented in this encounter Care Teams Case Resource Manager Relationship Specialty Start Date End Date Ev Augustin, PIPING MANAGER [address] [place] [address] PCP - General Internal Medicine 04/12/18 08/18/21 documented as of this encounter
--- OUTSIDE RECORDS SUMMARY | 2024-02-20 09:10 | XMS_ITS | Encounter Summary ---
[facility] Address [address] [place] [address] Care Team Providers Care Non Licensed Operator Name Role Phone Ev Augustin APRN Primary Care Provider [phone] Reason for Visit * Reason Comments Med Refill Encounter Details Date Type Department Care Team (Late st Contact Info) Description 11/07/2020 Refill [facility] [address] [facility] [address] [place] [phone] Roc Tracey PA-C [address] [facility] [address] [place] [address] Uncontrolled type 2 diabetes mellitus with [...] Miscellaneous Notes * Telephone Encounter - Shilpa Morales MA - 11/08/2020 8:10 AM EDT Last office visit 08/17/2020. Follow up scheduled for 12/29/2020. documented in this encounter Plan of Treatment Upcoming Encounters Date Type Department Care Team (Late st Contact Info) Description 03/13/2024 2:45 PM EST Office Visit [facility] [address] [place] [address] [place] [address] Pj Ace MD [address] [facility] [address] [place] [address] documented as of this encounter Visit Diagnoses Diagnosis Uncontrolled type 2 diabetes mellitus with hyperglycemia documented in this encounter Care Teams Non Licensed Operator Relationship Specialty Start Date End Date Ev Augustin APRN [address] [place] [address] PCP - General Internal Medicine 04/12/18 08/18/21 documented as of this encounter
--- OUTSIDE RECORDS SUMMARY | 2024-02-20 09:10 | XMS_ITS | Encounter Summary ---
[facility] [address] [place] [address] Care Team Providers Care Bar Turner Name Role Phone Ev Augustin APRN Primary Care Provider [phone] [phone] Reason for Visit * Reason Onset Date Comments Advice Only 10/15/2020 Encounter Details Date Type Department Care Team (Late st Contact Info) Description 10/15/2020 Telephone [facility] [address] [phone] Roc Tracey PA-C [address] [address] Advice Only Social History Tobacco Use Types Packs/Day Years [...] encounter Miscellaneous Notes * Telephone Encounter - Martha Jacobsen MA - 10/15/2020 3:54 PM EDT Pt notified and voiced understanding. * Telephone Encounter - Ariella Mccormack MD - 10/15/2020 10:57 AM EDT Patient should increase to 22 units tonight. She was given instructions to titrate basal every 3 days by 2 units at last visit. Thus, if fastingglucose elevated tomorrow and Sunday, she should further increase to 24 units Sunday night. * Telephone Encounter - Ana Paula Delgado MA - 10/15/2020 10:25 AM EDT Please advise on if she needs to Increase her dose. I will explain about carb eating when I speak with her. * Telephone Encounter - Aleta Holley RegSched Rep - 10/15/2020 9:41 AM EDT Pt called her blood sugar this morning was 206 she really is not eating too much yesterday for lunch she had a half of hamburger last night checked blood sugar was 207 potpie water and 5 cherries when she went to bed she gave herself 19 units of insulin before bed. She wants to know is she can increase insulin she has surgery on Sunday blood sugar need to be under 200 documented in this encounter Plan of Treatment Upcoming Encounters Date Type Department Care Team (Late st Contact Info) Description 03/13/2024 2:45 PM EST Office Visit [facility] [address] [place] [place] [address] Pj Ace MD [address] [facility] [address] [facility] [address] [place] [address] documented as of this encounter Visit Diagnoses Not on filedocumented in this encounter Additional Health Concerns Infection Onset Date Last Indicated Resolved Time COVID Screen (preop/placement) 10/15/2020 10/15/2020 10/15/2020 7:48 PM EDT documented as of this encounter Care Teams Bar Turner Relationship Specialty Start Date End Date Ev Augustin, SLOTTER OPERATOR HELPER [address] [place] [address] PCP - General Internal Medicine 04/12/18 08/18/21 documented as of this encounter
--- OUTSIDE RECORDS SUMMARY | 2024-02-20 09:10 | XMS_ITS | Encounter Summary ---
[facility] Address [address] [place] [address] Care Team Providers Care Photography Assistant Name Role Phone Ev Augustin APRN Primary Care Provider +1 [phone] Encounter Details Date Type Department Care Team (Late st Contact Info) Description 09/08/2020 Refill [facility] ENDOCRINOLOGY [address] [facility] [place] [address] [place] [phone] Roc Tracey PA-C [address] [facility] [place] [address] [place], [place] [id number] Social History Tobacco Use Types Packs/Day Years [...] as of this encounter Progress Notes * Tuan Morrow MA - 09/08/2020 3:09 PM EDTAddended by: TUAN MORROW on: 09/08/2020 03:09 PM Modules accepted: Orders documented in this encounter Miscellaneous Notes * Telephone Encounter - Tuan Morrow MA - 09/08/2020 3:04 PM EDT Spoke with pt and went over thoroughly the medications that she is to take, the dosage and the how and when to take it. She was obviously still taking glimepiride with glipizide, however I read her the office note from May where Roc stated to change glimepiride to glipizide. I also instructed her on when to check her blood sugar and to call with readings in 2 weeks and to always bring her meter to her appointments. She voiced understanding after we went over medications one more time and I had her write everything down. PT requested that we send a Rx for the freestyle Nevaeh, which I will pend in her chart. * Telephone Encounter - Tuan Morrow MA - 09/08/2020 2:48 PM EDT Left message on voicemail asking her to return my call. * Telephone Encounter - Tuan Morrow MA - 09/08/2020 11:53 AM EDT PT was informed of results of CGM readings. She was informed of the need for insulin and agreed to start a once a day long acting insulin. She would like a 90 day supply of [facility] medication [facility] and wants to know if she should continue the rest of her diabetic medications. I informed her that if there were any other changes I would call her back. * Telephone Encounter - Roc Tracey PA-C - 09/08/2020 11:42 AM EDT Please call pt. Freestyle Nevaeh reviewed. We were checked for hypoglycemia but there isn't any. Her BG is staying high, mostly >180 (180-300s). Our medication choice is limited as she is intolerant to metformin, actos (rash), no GLP1 agonist due to gastroparesis. She needs insulin and this has been discussed in the past but she did not want to add it. Based on her blood sugar readings she needs long acting and meal time insulin, but we could start with long acting (once a day inj) at first. Let me know what patient says. Her A1C appears to be falsely low, it was 7.8 last month, but her actual blood sugar readings are more consistent with at least a 9. For future will need to check sugar at least fasting and bedtime and bring readings to every visit since the a1c is not as reliable for her. documented in this encounter Plan of Treatment Upcoming Encounters Date Type Department Care Team (Late st Contact Info) Description 03/13/2024 2:45 PM EST Office Visit [facility] CARDIOLOGY [address] [facility] [place] [address] [phone] Pj Ace MD [address] [place] [address] [place] [address] documented as of this encounter Visit Diagnoses Not on filedocumented in this encounter Care Teams Photography Assistant Relationship Specialty Start Date End Date Ev Augustin APRN [address] [place] [address] PCP - General Internal Medicine 04/12/18 08/18/21 documented as of this encounter
--- OUTSIDE RECORDS SUMMARY | 2024-02-20 09:10 | XMS_ITS | Encounter Summary ---
[facility] [address] [place] [address] Care Team Providers Care Leather Colorer Name Role Phone Ev Augustin APRN Primary Care Provider +1 [phone] Encounter Details Date Type Department Care Team (Late st Contact Info) Description 09/14/2020 Telephone [facility] ENDOCR[facility]OLOG[facility] [address] [facility] [place] [address] [place] [phone] Roc Tracey PA-C [address] [facility] [address] [address] [place], [place] [id number] Social History Tobacco Use Types Packs/Day Years [...] encounter Miscellaneous Notes * Telephone Encounter - Ambar Morrow MA - 09/14/2020 2:13 PM EDT Fax with selected medication re faxed * Telephone Encounter - Rebecca Howell RegSched Rep - 09/14/2020 1:35 PM EDT [facility] called and needs clarification of what we would like to use besides Basaglar. Please call them back at Reference [id number] documented in this encounter Plan of Treatment Upcoming Encounters Date Type Department Care Team (Late st Contact Info) Description 03/13/2024 2:45 PM EST Office Visit [facility] CARDIOLOGY [address] [place] [address] [place] [address] Pj Ace MD [address] [facility] [address] [address] documented as of this encounter Visit Diagnoses Not on filedocumented in this encounter Care Teams Leather Colorer Relationship Specialty Start Date End Date Ev Augustin, ASSOCIATE [employer] [address] [place] [address] PCP - General Internal Medicine 04/12/18 08/18/21 documented as of this encounter
--- OUTSIDE RECORDS SUMMARY | 2024-02-20 09:10 | XMS_ITS | Encounter Summary ---
[facility] [address] [place] [address] Care Team Providers Care Concept Artist Name Role Phone Ev Augustin APRN Primary Care Provider +1 [phone] Reason for Visit * Reason Comments Med Refill Encounter Details Date Type Department Care Team (Late st Contact Info) Description 11/07/2020 Refill [facility] INTERNAL MEDICINE [address] [place] [address] Ev Augustin, VASILE [address] [place] [address] Gastroesophageal reflux disease without esophagitis Social History [...] Telephone Encounter - Shilpa Atkins MA - 11/08/2020 10:07 AM EDT Last Office Visit: 07/16/2020 Next Office Visit: 11/09/2020 Labs completed in past 6 months? yes Labs completed in past year? yes Last Refill Date: 10/20/2019 Quantity: 90 Refills: 3 Pharmacy: on file Medication protocols met and medication refilled to pharmacy on file. documented in this encounter Plan of Treatment Upcoming Encounters Date Type Department Care Team (Late st Contact Info) Description 03/13/2024 2:45 PM EST Office Visit [facility] CARDIOLOGY [address] [place] [address] [address] [place] [phone] Pj Ace MD [address] [facility] [address] [place] [address] documented as of this encounter Visit Diagnoses Diagnosis Gastroesophageal reflux disease without esophagitis Esophageal reflux documented in this encounter Care Teams Concept Artist Relationship Specialty Start Date End Date Ev Augustin, DISEASE CASE MANAGER RN [address] [place] [address] PCP - General Internal Medicine 04/12/18 08/18/21 documented as of this encounter
--- OUTSIDE RECORDS SUMMARY | 2024-02-20 09:10 | XMS_ITS | Encounter Summary ---
[facility] [address] [place] [address] Care Team Providers Care Car Inspector Name Role Phone Ev Augustin APRN Primary Care Provider +1 -[phone] Reason for Visit * Reason Onset Date Comments Results 08/18/2020 Encounter Details Date Type Department Care Team (Late st Contact Info) Description 08/18/2020 Telephone [facility] INTERNAL MEDICINE [address] [place] [address] Ev Augustin, READING COACH [address] [place] [address] Results Social History Tobacco Use Types Packs/Day Years [...] Telephone Encounter - Xiao Britton MA - 08/18/2020 4:13 PM EDT Faxed most recent lab results to [facility] Cardiology @ [phone] * Telephone Encounter - Kenia Black RegSched Rep - 08/18/2020 10:48 AM EDT Caller: [facility] C[facility] Relationship: Best call back number: [phone] Additional notes: PATIENT WAS SEEN BY CARDIOLOGY OFFICE IN January AND WOULD LIKE TO KNOW IF PATIENT HAS RECEIVED ANY LIVER AND LIPID PANELS MORE RECENTLY THAT CAN BE FAXED TO THE OFFICE PRIOR TO HER APPOINTMENT 08/19/20. FAX NUMBER: [phone] documented in this encounter Plan of Treatment Upcoming Encounters Date Type Department Care Team (Late st Contact Info) Description 03/13/2024 2:45 PM EST Office Visit [facility] CARDIOLOGY [address] [place] [address] [address] [place] [address] Pj Ace MD [address] [facility] [address] [place] [address] documented as of this encounter Visit Diagnoses Not on filedocumented in this encounter Care Teams Car Inspector Relationship Specialty Start Date End Date Ev Augustin APRN [address] [place] [address] PCP - General Internal Medicine 04/12/18 08/18/21 documented as of this encounter
--- OUTSIDE RECORDS SUMMARY | 2024-02-20 09:10 | XMS_ITS | Encounter Summary ---
[facility] Address [address] [place] [address] Care Team Providers Care Freight Flow Sales Leader Name Role Phone Ev Augustin APRN Primary Care Provider +1 -[phone] Reason for Visit * Reason Comments Med Refill Encounter Details Date Type Department Care Team (Late st Contact Info) Description 04/05/2020 Refill [facility] ENDOCRINOLOGY [address] [phone] Roc Tracey PA-C [address] [facility] [address] [place] [address] Social History Tobacco Use Types Packs/Day Years [...] Telephone Encounter - Ambar Morrow MA - 04/06/2020 10:05 AM EST Patients said that she takes 4mg, 1/2 in the a.m 1/2 in the p.m * Telephone Encounter - Ambar Morrow MA - 04/06/2020 9:10 AM EST Let message asking her to return my call to clarify dose. * Telephone Encounter - Ambar Morrow MA - 04/06/2020 8:57 AM EST SNEHA 01/16/2020 FOV 05/24/2020 documented in this encounter Plan of Treatment Upcoming Encounters Date Type Department Care Team (Late st Contact Info) Description 03/13/2024 2:45 PM EST Office Visit [facility] CARDIOLOGY [address] [facility] [place] [phone] Pj Ace MD [address] [place] [address] [address] documented as of this encounter Visit Diagnoses Not on filedocumented in this encounter Care Teams Freight Flow Sales Leader Relationship Specialty Start Date End Date Ev Augustin APRN [address] [place] [address] PCP - General Internal Medicine 04/12/18 08/18/21 documented as of this encounter
--- OUTSIDE RECORDS SUMMARY | 2024-02-20 09:10 | XMS_ITS | Encounter Summary ---
[facility] Address [address] [place] [id number] Care Team Providers Care Plug Maker Name Role Phone Ev Augustin APRN Primary Care Provider +1 -[phone] Encounter Details Date Type Department Care Team (Late st Contact Info) Description 11/09/2020 11:55 AM EDT Lab [facility] DRAW STATION [address] [place] [phone] Arthralgia, unspecified joint Social History Tobacco Use Types Packs/Day Years [...] as of this encounter Progress Notes * Ev Augustin APRN - 11/09/2020 11:55 AM EDT Let pt know negative for rheumatoid arthritis screening; no gout. documented in this encounter Plan of Treatment Upcoming Encounters Date Type Department Care Team (Late st Contact Info) Description 03/13/2024 2:45 PM EST Office Visit [facility] [address] [facility] [place] [address] Pj Ace MD [address] [place] [address] documented as of this encounter Procedures Procedure Name Priority Date/Time Associated Diagnosis Comments RHEUMATOID FACTOR, QUANT Routine 11/09/2020 11:53 AM EDT Arthralgia, unspecified joint SEDIMENTATION RATE Routine 11/09/2020 11 :53 AM EDT Arthralgia, unspecified joint LELAND Routine 11/09/2020 11:53 AM EDT Arthralgia, unspecified joint URIC ACID Routine 11/09/2020 11:53 AM EDT Arthralgia, unspecified joint documented in this encounter Results * Uric acid (11/09/2020 11:53 AM EDT) Uric Acid 3.4 2.4 - 5.7 mg/dL 11/10/2020 12:22 AM EDT [facility] Blood Venipuncture / Unknown 11/09/2020 11:53 AM EDT 11/09/2020 11:53 AM EDT us Ev Augustin INTERNAL CONTROLS SPECIALIST LAB BLOOD ORDERABLES Rosie l Result [facility]
[address] [place] [address], * Sedimentation Rate (11/09/2020 11:53 AM EDT) Sed Rate 26 0 - 30 mm/hr 11/09/2020 6:35 PM EDT [facility] Blood Venipuncture / Unknown 11/09/2020 11:53 AM EDT 11/09/2020 11:53 AM EDT us Ev Augustin APRN LAB BLOOD ORDERABLES Rosie l Result [facility]
[address] [place] [address], * RHEUMATOID FACTOR (11/09/2020 11:53 AM EDT) Pathologist [facility] Rheumatoid Factor Quantitative <10.0 0.0 - 14.0 IU/mL 11/10/2020 12:52 AM EDT [facility] Blood Venipuncture / Unknown 11/09/2020 11:53 AM EDT 11/09/2020 11:53 AM EDT Ev Augustin APRN LAB BLOOD ORDERABLES Rosie l Result Performing Organization Address [facility] Co de Phone Number [facility]
[address] [place] [address], * LELAND (11/09/2020 11:53 AM EDT) [facility] LELAND Direct Negative Negative 11/10/2020 3:08 PM EDT [facility] Blood Venipuncture / Unknown 11/09/2020 11:53 AM EDT 11/09/2020 11:53 AM EDT Narrative [facility] - 11/10/2020 3:08 PM EDT Performed at: ??01 - [facility] [address] ??[id number] Sales Engagement Executive: Malik Hall PhD, Phone: ??[phone] Ev Augustin APRN LAB BLOOD ORDERABLES Rosie l Result Performing Organization Address City/[facility]/ZIP Co de Phone Number [facility] [address] [place] [address], [place] [phone] documented in this encounter Visit Diagnoses Diagnosis Arthralgia, unspecified joint documented in this encounter Care Teams Plug Maker Relationship Specialty Start Date End Date Ev Augustin APRN [address] [place] [address] PCP - General Internal Medicine 04/12/18 08/18/21 documented as of this encounter
--- OUTSIDE RECORDS SUMMARY | 2024-02-20 09:10 | XMS_ITS | Encounter Summary ---
[facility] Address [address] [place] [address] Care Team Providers Care Engineering Research Manager Name Role Phone Ev Augustin APRN Primary Care Provider [phone] Reason for Visit * Reason Comments Follow-up Hyperlipidemia Insomnia Back Pain Difficulty Urinating with toma irritatio n Encounter Details Date Type Department Care Team (Late st Contact Info) Description 07/16/2020 11:30 AM EDT Office Visit [facility] [address] [place] [address] Ev Augustin APRN [address] [place] [address] Mixed hyperlipidemia (Primary Dx); Primary insomnia; Perineal irritation in female; Postlaminectomy syndrome of lumbar region; Herniated lumbar intervertebral disc; Medication monitoring encounter Social History Tobacco Use Types Packs/Day Years [...] Sign Reading Time Taken Comments Blood Pressure 152/84 07/16/2020 11:08 AM EDT Pulse 80 07/16/2020 11:08 AM EDT Temperature 36.2 ??C (97.1 ??F) 07/16/2020 11:08 AM E DT Respiratory Rate - - Oxygen Saturation 97% 07/16/2020 11:08 AM EDT Inhaled Oxygen Concentration - - Weight 81.8 kg (180 lb 6.4 oz) 07/16/2020 11:08 AM EDT Height - - Body Mass Index 34.09 05/28/2020 9:44 AM EST documented in this encounter Progress Notes * Ev Augustin, MED ASST - 07/16/2020 11:30 AM EDT Chief Complaint Patient presents with ??? Follow-up ??? Hyperlipidemia ??? Insomnia ??? Back Pain ??? Difficulty Urinating with toma irritation History of Present Illness 64 y.o.female presents for follow-up hyperlipidemia, insomnia, and back pain. Periirritation. Hyperlipidemia This is a chronic problem. The current episode started more than 1 year ago. The problem is controlled. Factors aggravating her hyperlipidemia include fatty foods. Associated symptoms include myalgias. Pertinent negatives include no chest pain, focal weakness or shortness of breath. Current antihyperlipidemic treatment includes statins and diet change. Compliance problems include medication side effects (Gets leg cramps and myalgias from atorvastatin). Insomnia This is a chronic problem. The current episode started more than 1 year ago. The problem occurs daily. The problem has been gradually improving. Associated symptoms include arthralgias, myalgias, numbness and weakness. Pertinent negatives include no abdominal pain, chest pain, chills, fever, joint swelling, nausea or vomiting. Treatments tried: Trazodone. The treatment provided moderate relief. Back Pain This is a chronic (With post laminectomy syndrome of lumbar region and herniated lumbar disc) problem. The current episode started more than 1 year ago. The problem occurs daily. The problem has beenwaxing and waning since onset. The pain is present in the lumbar spine. The quality of the pain is described as aching. The pain is worse during the day. The symptoms are aggravated by bending and position. Associated symptoms include numbness and weakness. Pertinent negatives include no abdominal pain, bladder incontinence, chest pain, fever or pelvic pain. (Has difficulty with bowel and bladderafter surgery. In and out caths. Frequent constipation) Treatments tried: Tramadol as needed. The tr eatment provided mild relief. C/o periirritation; has to self cath. Tried nystatin cream and helps need refill. Brings a urine sample today. Did see dermatology For lipoma infront of left clavicle. Was told could call surgery center to schedule appt for surgical removal. She tried calling and was told provider had to schedule. Pt reports has left 3 messages with derm and has not heard back. Lipoma causes her pain and would like ot have removed. Review of Systems Constitutional: Negative for chills and fever. Respiratory: Negative for shortness of breath. Cardiovascular: Negative for chest pain. Gastrointestinal: Positive for constipation. Negative for abdominal pain, diarrhea, nausea and vomiting. Genitourinary: Positive for difficulty urinating and vaginal pain. Negative for hematuria, pelvic pain, urinary incontinence, vaginal bleeding and vaginal discharge. Musculoskeletal: Positive for arthralgias, back pain and myalgias. Negative for joint swelling. Skin: Positive for skin lesions. Neurological: Positive for weakness and numbness. Negative for focal weakness. Psychiatric/Behavioral: Positive for sleep disturbance. Negative for depressed mood. The patient has insomnia. The patient is not nervous/anxious. [facility] The following portions of the patient's history were reviewed and updated as appropriate: allergies, current medications, past family history, past medical history, past social history, past surgicalhistory and problem list. Past Medical History: Diagnosis [...] mammogram Description: 11/27/2008 ??? Vitamin D deficiency Allergies Allergen Reactions ??? Iain Inhibitors Cough ??? Amlodipine Diarrhea ??? Beta Adrenergic Blockers Rash ??? Cyclobenzaprine Rash ??? Hydrochlorothiazide Rash ??? Hyzaar [Losartan Potassium-Hctz] Rash ??? Latex Rash ??? Losartan Rash ??? Metformin Rash ??? Penicillins Rash ??? Pioglitazone Rash ??? Spironolactone Rash Social History Tobacco Use ??? Smoking status: Never Smoker ??? Smokeless tobacco: Never Used Substance Use Topics ??? Alcohol use: No ??? Drug use: No Current Outpatient Medications: ??? albuterol sulfate HFA 108 (90 Base) MCG/ACT inhaler, Inhale 2 puffs Every 6 (Six) Hours As Needed for Wheezing or Shortness of Air., Disp: 1 inhaler, Rfl: 11 ??? atorvastatin (LIPITOR) 10 MG tablet, Take 1 tablet by mouth Every Night., Disp: 30 tablet, Rfl:5 ??? bethanechol (URECHOLINE) 50 MG tablet, Take [...] Times a Day., Disp: , Rfl: ??? Empagliflozin (Jardiance) 25 MG tablet, Take 25 mg by mouth Daily. (Patient taking differently:Take 1 tablet by mouth Every Other Day.), Disp: 90 tablet, Rfl: 1 ??? estradiol (ESTRACE VAGINAL) 0.1 MG/GM vaginal cream, Insert 2 g into the vagina 1 (One) Time Per Week., Disp: 42.5 g, Rfl: 5 ??? furosemide (LASIX) 20 MG tablet, Take 20 mg by mouth 2 (Two) Times a Day As Needed., Disp: , Rfl: ??? glipizide (GLUCOTROL XL) 5 MG ER tablet, Take 1 tablet by mouth Daily., Disp: 90 tablet, Rfl: 1 ??? losartan (COZAAR) 100 MG tablet, Take 100 mg by mouth Daily., Disp: , Rfl: ??? metoclopramide (REGLAN) 5 MG tablet, Take 5 mg by mouth 3 (Three) Times a Day., Disp: , Rfl: ??? NIFEdipine CC (ADALAT CC) 90 MG 24 hr tablet, Take 60 mg by mouth Daily., Disp: , Rfl: ??? omeprazole (priLOSEC) 40 MG capsule, Take 1 capsule by mouth Daily., Disp: 90 capsule, Rfl: 3 ??? rOPINIRole (REQUIP) 1 MG tablet, TAKE 1 TABLET EVERY NIGHT, 60 MINUTES BEFORE BEDTIME, Disp: 90tablet, Rfl: 3 ??? SITagliptin (Januvia) 100 MG tablet, Take 1 tablet by mouth Daily., Disp: 90 tablet, Rfl: 1 ??? topiramate (TOPAMAX) 50 MG tablet, Take 1 tablet by mouth Daily As Needed (migraine)., Disp: 90tablet, Rfl: 3 ??? traMADol (ULTRAM) 50 MG tablet, TAKE 1 TABLET THREE TIMES A DAY NEEDED FOR SEVERE BREAKTHROUGH PAIN, Disp: 90 tablet, Rfl: 0 ??? traZODone (DESYREL) 50 MG tablet, Take 1 to 2 tabs po hs prn, Disp: 180 tablet, Rfl: 3 ??? TRULANCE 3 MG tablet, , Disp: , Rfl: ??? vitamin B-6 (PYRIDOXINE) 100 MG tablet, pyridoxine (vitamin B6), Disp: , Rfl: VITALS: BP 152/84 Pulse 80 Temp 97.1 ??F (36.2 ??C) Wt 81.8 kg (180 lb 6.4 oz) LMP (LMP Unknown) SpO2 97% No BMI 34.09 kg/m?? Physical Exam HENT: Head: Normocephalic. Nose: Nose normal. Mouth/Throat: Mouth: Mucous membranes are moist. Cardiovascular: Rate and Rhythm: Normal rate and regular rhythm. Heart sounds: Normal heart sounds. Pulmonary: Effort: Pulmonary effort is normal. No respiratory distress. Breath sounds: Normal breath sounds. Abdominal: General: Bowel sounds are normal. Palpations: Abdomen is soft. Tenderness: There is no abdominal tenderness. Skin: General: Skin is warm and dry. Neurological: General: No focal deficit present. Mental Status: She is alert and oriented to person, place, and time. Psychiatric: Mood and Affect: Mood normal. Behavior: Behavior normal. Result Review : Assessment and Plan Diagnoses and all orders for this visit: 1. Mixed hyperlipidemia (Primary) - pravastatin (PRAVACHOL) 10 MG tablet; Take 1 tablet by mouth Every Night. Dispense: 30 tablet; Refill: 5 2. Primary insomnia - traZODone (DESYREL) 50 MG tablet; Take 1 to 2 tabs po hs prn Dispense: 180 tablet; Refill: 3 3. Perineal irritation in female - nystatin (MYCOSTATIN) [id number] UNIT/GM cream; Apply topically to the appropriate area as directed 2(Two) Times a Day As Needed (toma irritation). Dispense: 30 g; Refill: 2 - POC Urinalysis Dipstick, Automated 4. Postlaminectomy syndrome of lumbar region - traMADol (ULTRAM) 50 MG tablet; Take 1 tablet by mouth Every 8 (Eight) Hours As Needed for Moderate Pain . Dispense: 90 tablet; Refill: 2 5. Herniated lumbar intervertebral disc - traMADol (ULTRAM) 50 MG tablet; Take 1 tablet by mouth Every 8 (Eight) Hours As Needed for Moderate Pain . Dispense: 90 tablet; Refill: 2 6. Medication monitoring encounter - Urine Drug Screen - Urine, Clean Catch; Future As part of patient's treatment plan I am prescribing a controlled substance. The patient has been made aware of the appropriate use of such medications, including potential risk of somnolence, limited ability to drive and/or work safely, and potential for dependence and/or overdose. It has also been made clear that these medications are for use by this patient only, without concomitant use of alcohol or other substances, unless prescribed. The patient has read and signed the [facility] Controlled Substance Contract. I will continue to see patient for regular follow up appointments. They are well controlled on their medication. GENE is updated today; appears appropriate for fill. The patient is aware of the potential for addiction and dependence. csa 10-20-19 Will have someone from our office contact derm to see about helping pt get lipoma surgical removal scheduled or does this need different referral. Follow Up Return in about 6 months (around 01/15/2021), or if symptoms worsen or fail to improve, for Annual. I discussed the patients findings and my recommendations with patient. Patient was encouraged to keep me informed of any acute changes, lack of improvement, or any new concerning symptoms. Patient voiced understanding of all instructions and denied further questions. Electronically signed by: Ev Augustin APRN 07/16/2020 EMR Dragon/Cat Swamper Disclaimer: Much of this encounter note is an electronic jewel hole rough opener/translation of spoken language to printed text. The electronic translation of spoken language may permit erroneous, or at times, nonsensicalwords or phrases to be inadvertently transcribed. Although I have reviewed the note for such errors, some may still exist documented in this encounter Plan of Treatment Upcoming Encounters Date Type Department Care Team (Late st Contact Info) Description 03/13/2024 2:45 PM EST Office Visit [facility] [address] [place] [address] Pj Ace MD [address] [facility] [address] [address] documented as of this encounter Procedures Procedure Name Priority Date/Time Associated Diagnosis Comments POCT URINALYSIS DIPSTICK, AUTOMATED Routine 07/16/2020 11:55 AM EDT Perineal irritation in female documented in this encounter Results * (ABNORMAL) POC Urinalysis Dipstick, Automated (07/16/2020 11:55 AM EDT) Color Yellow Yellow, Straw, Dark Yellow, [place] [facility] Clarity, UA Slightly Cloudy(A) Clear [facility] Specific [place] 1.025 1.005 - 1.030 [facility] pH, Urine 6.0 5.0 - 8.0 [facility] Leukocytes Negative Negative [facility] Nitrite, UA Negative Negative [facility] Protein, POC Negative Negative mg/dL [facility] Glucose, UA 1000 mg/dL (3+) Negative, 1000 mg/dL (3+) mg/dL [facility] Ketones, UA Negative Negative [facility] Urobilinogen, UA Normal Normal [facility] Bilirubin Negative Negative [facility] Blood, UA Negative Negative [facility] Urine 07/16/2020 11:5 5 AM EDT Ev Augustin MED ASST POINT OF CARE TEST ORDERA BLES Final Result Performing Organization Address [facility] Co de Phone Number [facility]
[address] [place] [address], * Urine Drug Screen - Urine, Clean Catch (07/16/2020) Urine Urine specimen collection, clean catch / Unknown Ev Augustin MED ASST URINE ORDERABLES Final Re sult Performing Organization Address [facility] Co de Phone Number [facility]
[address] [place] [address], documented in this encounter Visit Diagnoses Diagnosis Mixed hyperlipidemia- Primary Primary insomnia Persistent disorder of initiating or maintaining sleep Perineal irritation in female Postlaminectomy syndrome of lumbar region Postlaminectomy syndrome, lumbar region Herniated lumbar intervertebral disc Displacement of lumbar intervertebral disc without myelopathy Medication monitoring encounter Encounter for therapeutic drug monitoring documented in this encounter Care Teams Engineering Research Manager Relationship Specialty Start Date End Date Ev Augustin APRN [address] [place] [address] PCP - General Internal Medicine 04/12/18 08/18/21 documented as of this encounter
--- OUTSIDE RECORDS SUMMARY | 2024-02-20 09:10 | XMS_ITS | Encounter Summary ---
[facility] Address [address] [place] [address] Care Team Providers Care Sleeve Tailor Name Role Phone Ev Augustin APRN Primary Care Provider [phone] Reason for Visit * Reason Comments Follow-up DM 2 Encounter Details Date Type Department Care Team (Late st Contact Info) Description 01/26/2020 11:30 AM EDT Office Visit [facility] [address] [facility] [address] [place] [phone] Roc Tracey PA-C [address] [place] [address] Uncontrolled type 2 diabetes mellitus with hyperglycemia (Primary Dx); Mixed hyperlipidemia; Essential hypertension Social History Tobacco Use Types [...] Sign Reading Time Taken Comments Blood Pressure 120/72 01/26/2020 11:31 AM EDT Pulse 73 01/26/2020 11:31 AM EDT Temperature - - Respiratory Rate - - Oxygen Saturation 98% 01/26/2020 11:31 AM EDT Inhaled Oxygen Concentration - - Weight 82.7 kg (182 lb 6.4 oz) 01/26/2020 11:31 AM EDT Height - - Body Mass Index 34.46 01/16/2020 11:12 AM EDT documented in this encounter Progress Notes * Roc Tracey PA-C - 01/26/2020 11:30 AM EDT Chief Complaint F/u for Diabetes Mellitus. HPI Gertrudis Gonzalez is a 64 y.o. female with chronic back pain and HTN- on multiple antihypertensives followed by cardiology in [place], who is here today for f/u of Diabetes Mellitus type 2. The initial diagnosis of diabetes was made approximately 2015. Has switched to whole wheat pasta but did not tolerate due to gastroparesis. A1C- 7.4 (01/16/2020), 8.5 (10/28/2019), 6.8 (04/18/2019), 7.4 (01/13/19), 7.4 (10/11/18), 7.6 (07/15/18), 7.2 (04/08/18), 7.7 (12/14/17), 6.7 (09/12/17), 8.9 (05/2017) Diabetic complications: gastroparesis followed by GI at [facility] Eye exam current (within one year): yes- no retinopathy Foot care and dental care: discussed Current diabetic medications include: Glimepiride 2mg 1/2 tab before dinner Jardiance 25mg daily - takes in the morning Januvia 100mg daily - takes in the morning ACEI/ARB: losartan-hctz Statin: intolerant to statins, including crestor 5mg, Repatha and Praluent not covered by insurance. Past medications: metformin (???caused blurred vision, went away when stopped taking metformin), invokana (insurance didn't cover but thinks this controlled glucose better), actos No GLP1 due to gastroparesis Diabetic Monitoring - No meter or log for review. She reports fbs 130-180s, doesn't check later in the day often. No hypoglycemia. Nutrition: Current diet: unhealthy Current exercise: none Seen RD in past: yes The following portions of the patient's history [...] by mouth Daily., Disp: , Rfl: ??? cyclobenzaprine (FLEXERIL) 10 MG tablet, Take 10 mg by mouth 3 (Three) Times a Day As Needed for Muscle Spasms., Disp: , Rfl: ??? docusate sodium (COLACE) 100 MG capsule, Take 100 mg by mouth 2 (Two) Times a Day., Disp: , Rfl: ??? Empagliflozin (Jardiance) 25 MG tablet, Take 25 mg by mouth Daily., Disp: 90 tablet, Rfl: 1 ??? estradiol (ESTRACE VAGINAL) 0.1 MG/GM vaginal cream, Insert 2 g into the vagina 1 (One) Time Per Week., Disp: 42.5 g, Rfl: 5 ??? furosemide (LASIX) 20 MG tablet, Take 20 mg by mouth 2 (Two) Times a Day As Needed., Disp: , Rfl: ??? glimepiride (Amaryl) 2 MG tablet, Take 1/2 pill before breakfast and dinner, Disp: 90 tablet, Rfl: 1 ??? losartan (COZAAR) 100 MG tablet, Take 100 mg by mouth Daily., Disp: , Rfl: ??? NIFEdipine CC (ADALAT CC) 90 MG 24 hr tablet, Take 60 mg by mouth Daily., Disp: , Rfl: ??? omeprazole (priLOSEC) 40 MG capsule, Take 1 capsule by mouth Daily., Disp: 90 capsule, Rfl: 3 ??? rOPINIRole (REQUIP) 1 MG tablet, Take 1 tablet by mouth Every Night. Take 1 hour before bedtime., Disp: 90 tablet, Rfl: 3 ??? SITagliptin (Januvia) 100 MG tablet, Take 1 tablet by mouth Daily., Disp: 90 tablet, Rfl: 1 ??? topiramate (TOPAMAX) 50 MG tablet, Take 1 tablet by mouth Daily As Needed (migraine)., Disp: 90tablet, Rfl: 3 ??? traMADol (ULTRAM) 50 MG tablet, TAKE 1 TABLET PO TID PRN FOR SEVERE BREAKTHROUGH PAIN, Disp: 90tablet, Rfl: 2 ??? traZODone (DESYREL) 50 MG tablet, Take 1 to 2 tabs po hs prn, Disp: 180 tablet, Rfl: 3 ??? TRULANCE 3 MG tablet, , Disp: , Rfl: ??? vitamin B-6 (PYRIDOXINE) 100 MG tablet, pyridoxine (vitamin B6), Disp: , Rfl: Review of Systems Review of Systems Constitutional: [...] patient is not nervous/anxious. Physical Exam BP 120/72 Pulse 73 Wt 82.7 kg (182 lb 6.4 oz) LMP (LMP Unknown) SpO2 98% BMI 34.46 kg/m??Body mass index is 34.46 kg/m??. Physical Exam Constitutional: She is oriented [...] Imaging Lab Results Component Value Date HGBA1C 7.4 01/16/2020 HGBA1C 8.50 (H) 10/20/2019 HGBA1C 6.8 04/18/2019 Office Visit on 01/26/2020 Component Date Value Ref Range Status ??? Glucose 01/26/2020 174* 70 - 130 mg/dL Final Office Visit on 01/16/2020 Component Date Value Ref Range Status ??? Hemoglobin A1C 01/16/2020 7.4 % Final Assessment / Plan Diagnoses and all orders for this visit: 1. Uncontrolled type 2 diabetes mellitus with hyperglycemia ([facility]) (Primary) - POC Glucose, Blood - glimepiride (Amaryl) 2 MG tablet; Take 1/2 pill before breakfast and dinner Dispense: 90 tablet; Refill: 1 - SITagliptin (Januvia) 100 MG tablet; Take 1 tablet by mouth Daily. Dispense: 90 tablet; Refill: 1 - Empagliflozin (Jardiance) 25 MG tablet; Take 25 mg by mouth Daily. Dispense: 90 tablet; Refill: 1 2. Mixed hyperlipidemia 3. Essential hypertension Diabetes Mellitus 2 is under inadequate control. -A1c 7.4, down from 8.5 last visit -fasting blood sugar fluctuates due to variable carb intake the day before- discussed working on carb consistent diet -take glimepiride 2mg 1/2 tab before before dinner and add 1/2 tab before breakfast as well- pt to let me know if she experiences hypoglycemia -continue jardiance to 25mg daily. -continue januvia 100mg daily -intolerant to metformin, actos, no GLP1 agonist due to gastroparesis -bring meter to all visits -call if any issues 1. Diet: 3-4 carb servings per meal [...] <180 2 hr postprandial 4. Microalbumin due 04/2020 5. Education performed during this visit: intermediate diabetic complications discussed. , annual eye examinations at Ophthalmology discussed, dental hygiene discussed and foot care reviewed., home glucose monitoring emphasized, all medications, side effects and compliance discussed carefully and Hypoglycemia management and prevention reviewed. Reviewed ???ABCs??? of diabetes management (respective goals in parentheses): A1C (<7), blood pressure (<130/80), and cholesterol (LDL <100, if CVD <70). Hyperlipidemia -intolerant to statins due to myalgias, did not tolerate crestor 5mg -praluent/repatha not covered by insurance -on fenofibrate HTN -controlled -continue bisoprolol, losartan There are no Patient Instructions on file for this visit. Follow up: Return in about 3 months (around 04/27/2020). Discussed the nature of the disease including, [...] Description 03/13/2024 2:45 PM EST Office Visit [facility] [address] [place] [address] [place] [address] Pj Ace MD [address] [facility] [address] [place] [address] documented as of this encounter Procedures Procedure Name Priority Date/Time Associated Diagnosis Comments POCT GLUCOSE, BLD (NON STRIP) Routine 01/26/2020 11:36 AM EDT Uncontrolled type 2 diabetes mellitus with hyperglycemia documented in this encounter Results * (ABNORMAL) POC Glucose, Blood (01/26/2020 11:36 AM EDT) Glucose 174(A) 70 - 130 mg/dL Blood 01/26/2020 11:3 6 AM EDT us Roc Tracey PA-C POINT OF CARE TEST ORDERAB LES Final Result documented in this encounter Visit Diagnoses Diagnosis Uncontrolled type 2 diabetes mellitus with hyperglycemia- Primary Mixed hyperlipidemia Essential hypertension Unspecified essential hypertension documented in this encounter Care Teams Sleeve Tailor Relationship Specialty Start Date End Date Ev Augustin, VASILE [address] [place] [address] PCP - General Internal Medicine 04/12/18 08/18/21 documented as of this encounter
--- OUTSIDE RECORDS SUMMARY | 2024-02-20 09:10 | XMS_ITS | Encounter Summary ---
[facility] Address [address] [place] [address] Care Team Providers Care Imaging Technician Name Role Phone Ev Augustin APRN Primary Care Provider [phone] Reason for Visit * Reason Comments Med Refill Encounter Details Date Type Department Care Team (Late st Contact Info) Description 07/16/[address] [facility] [address] [place] [address] Ev Augustin APRN [address] [place] [address] Postlaminectomy syndrome of lumbar region; [...] encounter Miscellaneous Notes * Telephone Encounter - Ev Augustin APRN - 07/16/2020 12:21 PM EDT Seen in office for appt; filled rx already with office appt. * Telephone Encounter - Xiao Britton MA - 07/16/2020 11:11 AM EDT Pt has appt today documented in this encounter Plan of Treatment Upcoming Encounters Date Type Department Care Team (Late st Contact Info) Description 03/13/2024 2:45 PM EST Office Visit [facility] [address] [place] [address] [place] [address] Pj Ace MD [address] [facility] [address] [place] [address] documented as of this encounter Visit Diagnoses Diagnosis Postlaminectomy syndrome of lumbar region Postlaminectomy syndrome, lumbar region Herniated lumbar intervertebral disc Displacement of lumbar intervertebral disc without myelopathy documented in this encounter Care Teams Imaging Technician Relationship Specialty Start Date End Date Ev Augustin, TDP DISPLAYS ANALYST [address] [place] [address] PCP - General Internal Medicine 04/12/18 08/18/21 documented as of this encounter
--- OUTSIDE RECORDS SUMMARY | 2024-02-20 09:10 | XMS_ITS | Encounter Summary ---
[facility] Address [address] [place] [address] Care Team Providers Care Bobbin Doffer Name Role Phone Ev Augustin PRIVATE DETECTIVE Primary Care Provider [phone] Reason for Visit * (Routine) - Closed Specialty Diagnoses / Procedures Referred By Contac t Referred To Contact Radiology Diagnoses Abnormal mammogram Procedures Mammo Diagnostic Digital Tomosynthesis Right With CAD Mammo Diagnostic Right With CAD Ev Augustin, PRIVATE DETECTIVE [address] [place] [address] Phone: tel: fax: Referral ID Status Reason Start Date Expiration Date Visits Re quested Visits Authorized [id number] Closed 01/26/2020 01/25/2021 1 1 Encounter Details Date Type Department Care Team (Late st Contact Info) Description 01/30/2020 1:15 PM EDT - 01/30/2020 11:59 PM EDT Hospital Encounter [facility] [address] [place] [address] Jaylin Cheney MD [address] [place] [address] Abnormal mammogram Discharge Disposition: Home or Self Care Social [...] by mouth 2 (Two) Times a Day. 0 docusate sodium (COLACE) 100 MG capsule Take 1 capsule by mouth 2 (Two) Times a Day. furosemide (LASIX) 20 MG tablet Take 1 tablet by mouth As Needed. albuterol sulfate HFA 108 (90 Base) MCG/ACT inhalerIndications: Cough Inhale 2 puffs Every 6 (Six) Hours As Needed for Wheezing or Shortness of Air. 1 inhaler 11 0 11/10/19 21 atorvastatin (LIPITOR) 10 MG tabletIndications:M ixed hyperlipidemia Take 1 tablet by mouth Every Night. 30 tablet 5 0 07/17/19 21 bisoprolol (ZEBeta) 5 MG tablet Take 5 mg by mouth Daily. 09/06/19 22 cyclobenzaprine (FLEXERIL) 10 MG tablet Take 10 mg by mouth 3 (Three) Times a Day As Needed for Muscle Spasms. 02/18/20 22 Empagliflozin (Jardiance) 25 MG tabletIndications:U ncontrolled type 2 diabetes mellitus with hyperglycemia Take 25 mg by mouth Daily. 90 tablet 1 0 08/18/19 21 estradiol (ESTRACE VAGINAL) 0.1 MG/GM vaginal creamIndications:Va ginal atrophy Insert 2 g into the vagina 1 (One) Time Per Week. 42.5 g 5 0 11/10/19 21 glimepiride (Amaryl) 2 MG tabletIndications:U ncontrolled type 2 diabetes mellitus with hyperglycemia Take 1/2 pill before breakfast and dinner 90 tablet 1 0 05/17/19 21 losartan (COZAAR) 100 MG tablet Take 100 mg by mouth Daily. 11/10/19 22 NIFEdipine CC (ADALAT CC) 90 MG 24 hr tablet Take 60 mg by mouth Daily. 8 12/30/19 21 omeprazole (priLOSEC) 40 MG capsuleIndications: Gastroesophageal reflux disease without esophagitis Take 1 capsule by mouth Daily. 90 capsule 3 0 11/09/19 21 rOPINIRole (REQUIP) 1 MG tabletIndications:R LS (restless legs syndrome) Take 1 tablet by mouth Every Night. Take 1 hour before bedtime. 90 tablet 3 0 04/06/19 21 SITagliptin (Januvia) 100 MG tabletIndications:U ncontrolled type 2 diabetes mellitus with hyperglycemia Take 1 tablet by mouth Daily. 90 tablet 1 0 11/09/19 21 topiramate (TOPAMAX) 50 MG tabletIndications:C hronic migraine without aura without status migrainosus, not intractable Take 1 tablet by mouth Daily As Needed (migraine). 90 tablet 3 0 11/10/19 21 traMADol (ULTRAM) 50 MG tabletIndications:P ostlaminectomy syndrome of lumbar region,Herniated lumbar intervertebral disc TAKE 1 TABLET PO TID PRN FOR SEVERE BREAKTHROUGH PAIN 90 tablet 2 0 04/06/19 21 traZODone (DESYREL) 50 MG tabletIndications:P rimary insomnia Take 1 to 2 tabs po hs prn 180 tablet 3 0 07/17/19 21 TRULANCE 3 MG tablet 0 11/10/19 21 vitamin B-6 (PYRIDOXINE) 100 MG tablet pyridoxine (vitamin B6) 11/10/19 21 documented as of this encounter Plan of Treatment Upcoming Encounters Date Type Department Care Team (Late st Contact Info) Description 03/13/2024 2:45 PM EST Office Visit [facility] [address] [place] [address] [place] [address] Pj Ace MD [address] [facility] [address] [place] [address] documented as of this encounter Procedures Procedure Name Priority Date/Time Associated Diagnosis Comments MAMMO DIAGNOSTIC DIGITAL TOMOSYNTHESIS RIGHT W CAD Routine 01/30/2020 1:56 PM EDT Abnormal mammogram documented in this encounter Results * Mammo Diagnostic Digital Tomosynthesis Right With CAD (01/30/2020 1:56 PM EDT) Anatomical Region Laterality Modality Breast Right Mammography 01/30/2020 1:41 PM EDT Impressions 01/30/2020 3:29 PM EDT No residual area of architectural distortion was identified in the right subareolar region with additional imaging. RECOMMENDATION: Resume annual screening mammography. BI-RADS CATEGORY 1, NEGATIVE. CAD was utilized. The standard false-negative rate of mammography is between 10% and 25%. Complex patterns or increased breast density will markedly elevate the false-negative rate of mammography. ?? At our facility, a triangular marker is positioned over a palpable area of concern indicated by the patient. A [place]et marker is placed over a visible skin lesion. A linear marker indicates a scar. A results letter, in lay terminology, will be given to the patient at the conclusion of the exam. This report was finalized on 01/30/2020 3:[address] Jaylin Cheney MD. Narrative 01/30/2020 3:29 PM EDT RIGHT DIAGNOSTIC MAMMOGRAM WITH TOMOSYNTHESIS: HISTORY: 64-year-old patient recalled from screening mammography dated 01/21/2020 for further evaluation of a possible area of architectural distortion in the right subareolar region. COMPARISON: 01/21/2020, 01/14/2019, 01/03/2019, and 10/10/2012. FINDINGS: Additional mammographic imaging of the right breast demonstrates resolution of the possible area of architectural distortion noted on CC tomosynthesis imaging from the screening mammogram. No suspicious mammographic findings are identified. Jaylin Cheney MD IMG MAMMOGRAPHY ORDERABLES Fin al Result documented in this encounter Visit Diagnoses Diagnosis Abnormal mammogram Abnormal mammogram, unspecified documented in this encounter Care Teams Bobbin Doffer Relationship Specialty Start Date End Date Ev Augustin APRN [address] [place] [address] PCP - General Internal Medicine 04/12/18 08/18/21 documented as of this encounter
--- OUTSIDE RECORDS SUMMARY | 2024-02-20 09:10 | XMS_ITS | Encounter Summary ---
[facility] [address] [place] [address] Care Team Providers Care Geotechnical Engineer Name Role Phone Ev Augustin APRN Primary Care Provider [phone] Reason for Visit * Reason Comments Cough Covid positive Encounter Details Date Type Department Care Team ([facility] st Contact Info) Description 03/02/2020 2:00 PM EST Office Visit [facility] MEDICINE [address] [place] [address] Ev Augustin, PHONE SPECIALIST [address] [place] [address] COVID-19 (Primary Dx); Cough Social History Tobacco Use Types Packs/Day Years [...] Progress Notes * Ev Augustin APRN - 03/02/2020 2:00 PM EST Chief Complaint Patient presents with ??? Cough Covid positive History of Present Illness 64 y.o.female presents for cough covid positive. Recent dx with covid 19 Sundayfeb 27. Has had cough sinus symptoms for about a week prior to. Her has also been sick hospitalized with covid pneumonia. Pt cough has continued to worsen; cough recurrent all the time. Feels like bronchitis wheezing, no short of air. O2 sat 93-94%. Deep cough mostly nonproductive. Positive headaches. No fever since early on. Has tried albuterol, cold meds for sx. Review of Systems Constitutional: Negative for chills and fever. HENT: Positive for congestion, rhinorrhea and sinus pressure. Negative for ear pain, sneezing, sorethroat, swollen glands and tinnitus. Respiratory: Positive for cough and wheezing. Negative for shortness of breath. Musculoskeletal: Negative for myalgias. PMSFH The following portions of the patient's history [...] Dr. Damien Berg ??? TUBAL ABDOMINAL LIGATION Allergies Allergen Reactions ??? Iain Inhibitors Cough ??? Amlodipine Diarrhea ??? Beta Adrenergic Blockers Rash ??? Cyclobenzaprine Rash ??? Hydrochlorothiazide Rash ??? Hyzaar [Losartan Potassium-Hctz] Rash ??? Latex Rash ??? Losartan Rash ??? Metformin Rash ??? Penicillins Rash ??? Pioglitazone Rash ??? Spironolactone Rash Social History Socioeconomic History ??? Marital status: Tobacco Use ??? Smoking status: Never Smoker ??? Smokeless tobacco: Never Used Substance and Sexual Activity ??? Alcohol use: No ??? Drug use: No ??? Sexual activity: Defer Family History Problem Relation Age of Onset ??? Hypertension Mother ??? Peripheral vascular disease Mother ??? Ulcers Mother ??? Kidney failure Mother ??? Lung disease Father ??? Diabetes Other type 2 ??? Kidney failure Maternal Grandmother Current Outpatient Medications: ??? albuterol sulfate HFA [...] pyridoxine (vitamin B6), Disp: , Rfl: VITALS: Physical Exam Telehealth; able to carry on conversation without obvious labor breathing; has occasional cough. LABS No new labs ASSESSMENT/PLAN Diagnoses and all orders for this visit: 1. COVID-19 (Primary) - dexamethasone (DECADRON) 6 MG tablet; Take 1 tablet by mouth Daily With Breakfast for 5 days. Dispense: 5 tablet; Refill: 0 2. Cough - dexamethasone (DECADRON) 6 MG tablet; Take 1 tablet by mouth Daily With Breakfast for 5 days. Dispense: 5 tablet; Refill: 0 discussed treatment options such as oral antihistamines, otc cough meds/syrup, vit C Vit D and zinc. Will give short course steroids. Explained to pt that blood sugar will run higher on steroids. If any worsening or if sats< 92%; pt needs to seek emergency care. This visit has been rescheduled as a phone visit to comply with patient safety concerns in accordance with CDC recommendations. Total time of discussion was 15 minutes. I discussed the patients findings and my recommendations with patient. Patient was encouraged to keep me informed of any acute changes, lack of improvement, or any new concerning symptoms. Patient voiced understanding of all instructions and denied further questions. FOLLOW-UP Return if symptoms worsen or fail to improve. Electronically signed by: Ev Augustin APRN 03/02/2020 EMR Dragon/Site Coordinator Disclaimer: Much of this encounter note is an electronic outpatient surgery rn/translation of spoken language to printed text. The electronic translation of spoken language may permit erroneous, or at times, nonsensicalwords or phrases to be inadvertently transcribed. Although I have reviewed the note for such errors, some may still exist documented in this encounter Plan of Treatment Upcoming Encounters Date Type Department Care Team (Late st Contact Info) Description 03/13/2024 2:45 PM EST Office Visit [facility] [address] [place] [address] Pj Ace MD [address] [facility] [address] [place] [address] documented as of this encounter Visit Diagnoses Diagnosis COVID-19- Primary Cough documented in this encounter Care Teams Geotechnical Engineer Relationship Specialty Start Date End Date Ev Augustin, PHONE SPECIALIST [address] [place] [address] PCP - General Internal Medicine 04/12/18 08/18/21 documented as of this encounter
--- OUTSIDE RECORDS SUMMARY | 2024-02-20 09:10 | XMS_ITS | Encounter Summary ---
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) Social History Tobacco Use Types [...] Visit [facility] [address] [place] [place] [address] Pj Ace MD [address] [facility] [address] [place] [address] documented as of this encounter Procedures Procedure Name Priority Date/Time Associated Diagnosis Comments TSH Routine 05/17/2020 1:21 PM EST Type 2 diabetes mellitus with other specified complication, unspecified whether senior living insulin use LIPID PANEL Routine 05/17/2020 1:21 PM EST Type 2 diabetes mellitus with other specified complication, unspecified whether senior living insulin use COMPREHENSIVE METABOLIC PANEL Routine 05/17/2020 1:21 PM EST Type 2 diabetes mellitus with other specified complication, 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 documented in this encounter Results * (ABNORMAL) Comprehensive Metabolic Panel (05/17/2020 1:21 PM EST) Glucose 130(H) 65 - 99 mg/dL 05/17/2020 9:03 PM [facility] BUN 19 8 - 23 mg/dL 05/17/2020 9:03 PM [facility] Creatinine 0.62 0.57 - 1.00 mg/dL 05/17/2020 9:03 PM [facility] Sodium 140 136 - 145 mmol/L 05/17/2020 9:03 PM [facility] Potassium 4.2 3.5 - 5.2 mmol/L 05/17/2020 9:03 PM [facility] Chloride 102 98 - 107 mmol/L 05/17/2020 9:03 PM [facility] CO2 28.0 22.0 - 29.0 mmol/L 05/17/2020 9:03 PM [facility] Calcium 9.7 8.6 - 10.5 mg/dL 05/17/2020 9:03 PM [facility] Total Protein 7.4 6.0 - 8.5 g/dL 05/17/2020 9:03 PM [facility] Albumin 4.50 3.50 - 5.20 g/dL 05/17/2020 9:03 PM [facility] ALT (SGPT) 56(H) 1 - 33 U/L 05/17/2020 9:03 PM [facility] AST (SGOT) 52(H) 1 - 32 U/L 05/17/2020 9:03 PM [facility] Alkaline Phosphatase 146(H) 39 - 117 U/L 05/17/2020 9:03 PM EST [facility] Total Bilirubin 0.6 0.0 - 1.2 mg/dL 05/17/2020 9:03 PM EST [facility] eGFR Non Amer 97 >60 mL/min/1.7 3 05/17/2020 9:03 PM EST [facility] Globulin 2.9 gm/dL 05/17/2020 9:03 PM [facility] A/G Ratio 1.6 g/dL 05/17/2020 9:03 PM [facility] BUN/Creatinine Ratio 30.6(H) 7.0 - 25.0 05/17/2020 9:03 PM [facility] Anion Gap 10.0 5.0 - 15.0 mmol/L 05/17/2020 9:03 PM [facility] Blood Venipuncture / Unknown 05/17/2020 1:21 PM EST 05/17/2020 4:48 PM EST [facility] - 05/17/2020 9:03 PM EST GFR Normal >60 Chronic Kidney Disease <60 Kidney Failure <15 Roc Tracey PA-C LAB BLOOD ORDERABLES Final Result [facility]
[address] [place] [address], * (ABNORMAL) Lipid Panel (05/17/2020 1:21 PM EST) Total Cholesterol 181 0 - 200 mg/dL 05/17/2020 9:03 PM EST [facility] Triglycerides 129 0 - 150 mg/dL 05/17/2020 9:03 PM EST [facility] HDL Cholesterol 57 40 - 60 mg/dL 05/17/2020 9:03 PM EST [facility] LDL Cholesterol 101(H) 0 - 100 mg/dL 05/17/2020 9:03 PM EST [facility] VLDL Cholesterol 23 5 - 40 mg/dL 05/17/2020 9:03 PM EST [facility] LDL/HDL Ratio 1.72 05/17/2020 9:03 PM EST [facility] Blood Venipuncture / Unknown 05/17/2020 1:21 PM EST 05/17/2020 4:48 PM EST Narrative [facility] - 05/17/2020 9:03 PM EST Cholesterol Reference Ranges (U.S. Department [...] of Health and Human Services ATP III Classifcations) Low ? <40 mg/dl (major risk factor for CHD) High ?>60 mg/dl ('negative' risk factor for CHD) LDL Reference Ranges (U.S. Department of Health and Human Services ATP III Classifcations) Optimal ?<100 mg/dL Near Optimal ? 100-129 mg/dL Borderline High ??130-159 mg/dL High ? 160-189 mg/dL Very High ?>189 mg/dL Roc Tracey PA-C LAB BLOOD ORDERABLES Final Result [facility]
[address] [place] [address], * TSH (05/17/2020 1:21 PM EST) TSH 2.900 0.270 - 4.200 uIU/mL 05/17/2020 8:41 PM EST [facility] Blood Venipuncture / Unknown 05/17/2020 1:21 PM EST 05/17/2020 4:48 PM EST Roc Tracey PA-C LAB BLOOD ORDERABLES Final Result [facility]
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
--- OUTSIDE RECORDS SUMMARY | 2024-02-20 09:10 | XMS_ITS | Encounter Summary ---
[facility] Address [address] [place] [address] Care Team Providers Care Forge Operator Name Role Phone Ev Augustin APRN Primary Care Provider [phone] [phone] Reason for Visit * Reason Comments Follow-up DM 2 Encounter Details Date Type Department Care Team (Late st Contact Info) Description 05/17/2020 1:30 PM EST Office Visit [facility] [address] [facility] [address] [place] [phone] Roc Tracey PA-C [address] [facility] [address] [place] [address] Controlled type 2 diabetes mellitus without complication, without long-term current use of insulin (Primary Dx); Mixed hyperlipidemia Social History Tobacco [...] Sign Reading Time Taken Comments Blood Pressure 122/80 05/17/2020 12:46 PM EST Pulse 76 05/17/2020 12:46 PM EST Temperature - - Respiratory Rate - - Oxygen Saturation 98% 05/17/2020 12:46 PM EST Inhaled Oxygen Concentration - - Weight 82.3 kg (181 lb 6.4 oz) 05/17/2020 12:46 PM EST Height - - Body Mass Index 34.28 01/16/2020 11:12 AM EDT documented in this encounter Progress Notes * Roc Tracey PA-C - 05/17/2020 1:30 PM EST Chief Complaint F/u for Diabetes Mellitus. JONA Gonzalez is a 64 y.o. female with chronic back pain and HTN- on multiple antihypertensives followed by cardiology in [place], who is here today for f/u of Diabetes Mellitus type 2. The initial diagnosis of diabetes was made approximately 2015. She is having some symptoms of hypoglycemia multiple times per week, usually during the day. Sugar is typically in the mid 100s when she has symptoms. Regular soda does resolve the symptoms. A1C- 7.4 (01/16/2020), 8.5 (10/28/2019), 6.8 (04/18/2019), 7.4 (01/13/19), 7.4 (10/11/18), 7.6 (07/15/18), 7.2 (04/08/18), 7.7 (12/14/17), 6.7 (09/12/17), 8.9 (05/2017) Diabetic complications: gastroparesis followed by GI at [facility] Eye exam current (within one year): [facility] summer 2019, Foot care and dental care: discussed Current diabetic medications include: Glimepiride 2mg 1/2 tab before breakfast and dinner Jardiance 25mg daily - takes in the morning Januvia 100mg daily - takes in the morning ACEI/ARB: losartan-hctz Statin: intolerant to statins, including crestor 5mg, Repatha and Praluent not covered by insurance. Past medications: metformin (???caused blurred vision, went away when stopped taking metformin), invokana (insurance didn't cover but thinks this controlled glucose better), actos (rash) No GLP1 due to gastroparesis Diabetic Monitoring [...] Day As Needed., Disp: , Rfl: ??? losartan (COZAAR) 100 [...] tablet, pyridoxine (vitamin B6), Disp: , Rfl: ??? glipizide (GLUCOTROL XL) 5 MG ER tablet, Take 1 tablet by mouth Daily., Disp: 90 tablet, Rfl: 1 Review of [...] patient is not nervous/anxious. Physical Exam BP 122/80 Pulse 76 Wt 82.3 kg (181 lb 6.4 oz) LMP (LMP Unknown) SpO2 98% BMI 34.28 kg/m??Body mass index is 34.28 kg/m??. Physical Exam Constitutional: She is oriented [...] Imaging Lab Results Component Value Date HGBA1C 7.3 05/17/2020 HGBA1C 7.4 01/16/2020 HGBA1C 8.50 (H) 10/20/2019 Office Visit on 05/17/2020 Component Date Value Ref Range Status ??? Glucose 05/17/2020 135* 70 - 130 mg/dL Final ??? Hemoglobin A1C 05/17/2020 7.3 % Final Lab on 05/17/2020 Component Date Value Ref Range Status ??? TSH 05/17/2020 2.900 0.270 - 4.200 uIU/mL Final ??? Total Cholesterol 05/17/2020 181 0 - 200 mg/dL Final ??? Triglycerides 05/17/2020 129 0 - 150 mg/dL Final ??? HDL Cholesterol 05/17/2020 57 40 - 60 mg/dL Final ??? LDL Cholesterol 05/17/2020 101* 0 - 100 mg/dL Final ??? VLDL Cholesterol 05/17/2020 23 5 - 40 mg/dL Final ??? LDL/HDL Ratio 05/17/2020 1.72 Final ??? Glucose 05/17/2020 130* 65 - 99 mg/dL Final ??? BUN 05/17/2020 19 8 - 23 mg/dL Final ??? Creatinine 05/17/2020 0.62 0.57 - 1.00 mg/dL Final ??? Sodium 05/17/2020 140 136 - 145 mmol/L Final ??? Potassium 05/17/2020 4.2 3.5 - 5.2 mmol/L Final ??? Chloride 05/17/2020 102 98 - 107 mmol/L Final ??? CO2 05/17/2020 28.0 22.0 - 29.0 mmol/L Final ??? Calcium 05/17/2020 9.7 8.6 - 10.5 mg/dL Final ??? Total Protein 05/17/2020 7.4 6.0 - 8.5 g/dL Final ??? Albumin 05/17/2020 4.50 3.50 - 5.20 g/dL Final ??? ALT (SGPT) 05/17/2020 56* 1 - 33 U/L Final ??? AST (SGOT) 05/17/2020 52* 1 - 32 U/L Final ??? Alkaline Phosphatase 05/17/2020 146* 39 - 117 U/L Final ??? Total Bilirubin 05/17/2020 0.6 0.0 - 1.2 mg/dL Final ? ? eGFR Non Amer 05/17/2020 97 >60 mL/min/1.73 Final ??? Globulin 05/17/2020 2.9 gm/dL Final ??? A/G Ratio 05/17/2020 1.6 g/dL Final ??? BUN/Creatinine Ratio 05/17/2020 30.6* 7.0 - 25.0 Final ??? Anion Gap 05/17/2020 10.0 5.0 - 15.0 mmol/L Final Assessment / Plan Diagnoses and all orders for this visit: 1. Controlled type 2 diabetes mellitus without complication, without long-term current use of insulin ([facility]) (Primary) - POC Glucose, Blood - POC Glycosylated Hemoglobin (Hb A1C) - glipizide (GLUCOTROL XL) 5 MG ER tablet; Take 1 tablet by mouth Daily. Dispense: 90 tablet; Refill: 1 - Microalbumin / Creatinine Urine Ratio - Urine, Clean Catch - Cancel: Comprehensive Metabolic Panel - Cancel: Lipid Panel - Cancel: TSH 2. Mixed hyperlipidemia - Cancel: Comprehensive Metabolic Panel - Cancel: Lipid Panel Diabetes Mellitus 2 is under inadequate control. -A1c 7.3 -she reports symptoms of hypoglycemia in the mid 150s that resolve with regular soda -choice of medications is limited- intolerant to metformin, actos (rash), no GLP1 agonist due to gastroparesis -change glimepiride to glipizide xl 5 mg daily (in the morning) -continue jardiance to 25mg daily. -continue januvia 100mg daily -bring meter to all visits -asked pt to call if she continues to have symptoms of hypoglycemia 1. Diet: 3-4 carb servings per meal [...] 04/2020 5. Education performed during this visit: manager long term care diabetic complications discussed. , annual eye examinations at Ophthalmology discussed, dental hygiene discussed and foot care reviewed., home glucose monitoring emphasized, all medications, side effects and compliance discussed carefully and Hypoglycemia management and prevention reviewed. Reviewed ???ABCs??? of diabetes management (respective goals in parentheses): A1C (<7), blood pressure (<130/80), and cholesterol (LDL <100, if CVD <70). Hyperlipidemia -intolerant to most statins due to myalgias, did not tolerate crestor 5mg -she is tolerating lipitor 10 mg with minimal myalgias currently -praluent/repatha not covered by insurance -on fenofibrate -repeat lipids today There are no Patient Instructions on file for this visit. Follow up: Return in about 3 months (around 08/14/2020). Discussed the nature of the disease including, [...] Office Visit [facility] [address] [facility] [place] [address] Pj Ace MD [address] [facility] [address] [place] [address] documented as of this encounter Procedures Procedure Name Priority Date/Time Associated Diagnosis Comments MICROALBUMIN / CREATININE URINE RATIO Routine 05/17/2020 1:21 PM EST Controlled type 2 diabetes mellitus without complication, without long-term current use of insulin POCT GLUCOSE, BLD (NON STRIP) Routine 05/17/2020 12:52 PM EST Controlled type 2 diabetes mellitus without complication, without long-term current use of insulin POCT GLYCOSYLATED HEMOGLOBIN (HGB A1C) Routine 05/17/2020 12:52 PM EST Controlled type 2 diabetes mellitus without complication, without long-term current use of insulin documented in this encounter Results * Microalbumin / Creatinine Urine Ratio - Urine, Clean Catch (05/17/2020 1:21 PM EST) Microalbumin/C reatinine Ratio 05/19/2020 8:10 PM EST [facility] Comment:Unable to calculate Creatinine, Urine 71.1 mg/dL 05/19/2020 8:10 PM EST [facility] Microalbumin, Urine <1.2 mg/dL 05/19/2020 8:10 PM EST [facility] Urine Urine specimen collection, clean catch / Unknown Collection / Unknown 05/17/2020 1:21 PM EST 05/17/2020 1:21 PM EST us Vedrana Knezevic PA-C URINE ORDERABLES Final Res ult [facility]
[address] [place] [address], * POC Glycosylated Hemoglobin (Hb A1C) (05/17/2020 12:52 PM EST) Hemoglobin A1C 7.3 % [facility] Blood 05/17/2020 12:5 2 PM EST us Vedrana Knezevic PA-C POINT OF CARE TEST ORDERAB LES Final Result [facility]
[address] [place] [address], * (ABNORMAL) POC Glucose, Blood (05/17/2020 12:52 PM EST) Glucose 135(A) 70 - 130 mg/dL Blood 05/17/2020 12:5 2 PM EST Roc Tracey PA-C POINT OF CARE TEST ORDERAB LES Final Result documented in this encounter Visit Diagnoses Diagnosis Controlled type 2 diabetes mellitus without complication, without long-term current use of insulin- Primary Mixed hyperlipidemia documented in this encounter Care Teams Forge Operator Relationship Specialty Start Date End Date Ev Augustin, SCIENTIFIC EDITOR [address] [place] [address] [id number] PCP - General Internal Medicine 04/12/18 08/18/21 documented as of this encounter
--- OUTSIDE RECORDS SUMMARY | 2024-02-20 09:10 | XMS_ITS | Encounter Summary ---
[facility] Organization [facility] Address [address] [place] [id number] Care Team Providers Care Non Destructive Evaluation Specialist Name Role Phone Ev Augustin APRN Primary Care Provider [phone] [phone] Encounter Details Date Type Department Care Team (Late st Contact Info) Description 12/02/2020 10:50 AM EDT Lab [facility] [address] [place] [address] Erythrocytosis; Elevated ferritin, hemoglobin, and red blood cell count Social History Tobacco Use Types Packs/Day Years [...] Office Visit [facility] [address] [place] [address] [address] [place] [address] Pj Ace MD [address] [facility] [address] [place] [address] documented as of this encounter Procedures Procedure Name Priority Date/Time Associated Diagnosis Comments CBC WITH AUTO DIFFERENTIAL Routine 12/02/2020 10:45 AM EDT Erythrocytosis Elevated ferritin, hemoglobin, and red blood cell count IRON PROFILEC Routine 12/02/2020 10:45 AM EDT Erythrocytosis Elevated ferritin, hemoglobin, and red blood cell count CBC AND DIFFERENTIAL Routine 12/02/2020 10:45 AM EDT Erythrocytosis Elevated ferritin, hemoglobin, and red blood cell count FERRITIN Routine 12/02/2020 10:45 AM EDT Erythrocytosis Elevated ferritin, hemoglobin, and red blood cell count documented in this encounter Results * (ABNORMAL) CBC Auto Differential (12/02/2020 10:45 AM EDT) WBC 6.30 3.40 - 10.80 10*3/mm3 12/02/2020 10:53 AM EDT [facility] RBC 5.12 3.77 - 5.28 10*6/mm3 12/02/2020 10:53 AM EDT [facility] Hemoglobin 14.8 12.0 - 15.9 g/dL 12/02/2020 10:53 AM EDT [facility] Hematocrit 45.2 34.0 - 46.6 % 12/02/2020 10:53 AM EDT [facility] RDW 13.4 12.3 - 15.4 % 12/02/2020 10:53 AM EDT [facility] MCV 88.2 79.0 - 97.0 fL 12/02/2020 10:53 AM EDT [facility] MCH 29.0 26.6 - 33.0 pg 12/02/2020 10:53 AM EDT [facility] MCHC 32.8 31.5 - 35.7 g/dL 12/02/2020 10:53 AM EDT [facility] MPV 8.0 6.0 - 12.0 fL 12/02/2020 10:53 AM EDT [facility] Platelets 248 140 - 450 10*3/mm3 12/02/2020 10:53 AM EDT [facility] Neutrophil % 63.9 42.7 - 76.0 % 12/02/2020 10:53 AM EDT [facility] Lymphocyte % 32.5 19.6 - 45.3 % 12/02/2020 10:53 AM EDT [facility] Monocyte % 3.6(L) 5.0 - 12.0 % 12/02/2020 10:53 AM EDT [facility] Neutrophils, Absolute 4.00 1.70 - 7.00 10*3/mm3 12/02/2020 10:53 AM EDT [facility] Lymphocytes, Absolute 2.00 0.70 - 3.10 10*3/mm3 12/02/2020 10:53 AM EDT [facility] Monocytes, Absolute 0.20 0.10 - 0.90 10*3/mm3 12/02/2020 10:53 AM EDT [facility] Blood Venipuncture / Unknown 12/02/2020 10:45 AM EDT 12/02/2020 10:45 AM EDT Yoanna Mccoy [facility] BLOOD ORDERABLES Final Result [facility]
[address] [place] [address], * (ABNORMAL) Iron Profile (12/02/2020 10:45 AM EDT) Iron 71 37 - 145 mcg/dL 12/02/2020 11:58 AM EDT [facility] Iron Saturation (TSAT) 18(L) 20 - 50 % 12/02/2020 11:58 AM EDT [facility] Transferrin 270 200 - 360 mg/dL 12/02/2020 11:58 AM EDT [facility] TIBC 402 298 - 536 mcg/dL 12/02/2020 11:58 AM EDT [facility] Blood Venipuncture / Unknown 12/02/2020 10:45 AM EDT 12/02/2020 10:45 AM EDT Yoanna Mccoy [facility] LAB BLOOD ORDERABLES Final Result Performing Organization Address [facility] Co de Phone Number [facility]
[address] [place] [address], * (ABNORMAL) Ferritin (12/02/2020 10:45 AM EDT) Ferritin 293.60(H) 13.00 - 150.00 ng/mL 12/02/2020 12:12 PM EDT [facility] Blood Venipuncture / Unknown 12/02/2020 10:45 AM EDT 12/02/2020 10:45 AM EDT Narrative [facility] - 12/02/2020 12:12 PM EDT Results may be falsely decreased if patient taking Biotin. us Yoanna Mccoy ANESTHESIOLOGY CRNA LAB BLOOD ORDERABLES Final Result Performing Organization Address [facility] de Phone Number [facility]
[address] [place] [address], documented in this encounter Visit Diagnoses Diagnosis Erythrocytosis Polycythemia, secondary Elevated ferritin, hemoglobin, and red blood cell count documented in this encounter Care Teams Non Destructive Evaluation Specialist Relationship Specialty Start Date End Date Ev Augustin APRN [address] [place] [address] PCP - General Internal Medicine 04/12/18 08/18/21 documented as of this encounter
--- OUTSIDE RECORDS SUMMARY | 2024-02-20 09:10 | XMS_ITS | Encounter Summary ---
[facility] Address [address] [place] [address] Care Team Providers Care Real Estate Broker Name Role Phone Ev Augustin TOPPIECE CUTTER Primary Care Provider [phone] [phone] Encounter Details Date Type Department Care Team (Late st Contact Info) Description 08/19/2020 Telephone [facility] [address] [place] [address] Ev Augustin, TOPPIECE CUTTER [address] [place] [address] [phone] Social History Tobacco Use Types Packs/Day Years [...] encounter Miscellaneous Notes * Telephone Encounter - Jessica Rosario - 08/19/2020 11:50 AM EDT Kelly @ [facility] called to get some labs on pt; Faxed labs to [phone]. documented in this encounter Plan of Treatment Upcoming Encounters Date Type Department Care Team (Late st Contact Info) Description 03/13/2024 2:45 PM EST Office Visit [facility] C[facility] [address] [place] [address] [place] [address] Pj Ace MD [address] [facility] [address] [place] [address] documented as of this encounter Visit Diagnoses Not on filedocumented in this encounter Care Teams Real Estate Broker Relationship Specialty Start Date End Date Ev Augustin, TOPPIECE CUTTER [address] [place] [address] PCP - General Internal Medicine 04/12/18 08/18/21 documented as of this encounter
--- OUTSIDE RECORDS SUMMARY | 2024-02-20 09:10 | XMS_ITS | Encounter Summary ---
[facility] Address [address] [place] [address] Care Team Providers Care Baggage Agent Name Role Phone Ev Augustin APRN Primary Care Provider [phone] [phone] Reason for Visit * Reason Comments Follow-up DM 2 Encounter Details Date Type Department Care Team (Late st Contact Info) Description 08/17/2020 11:30 AM EDT Office Visit [facility] [address] [facility] [address] [place] [phone] Roc Tracey PA-C [address] [facility] [address] [place], [place] [id number] Mixed hyperlipidemia (Primary Dx); Uncontrolled type 2 diabetes mellitus with hyperglycemia [...] Sign Reading Time Taken Comments Blood Pressure 140/84 08/17/2020 11:19 AM EDT Pulse 75 08/17/2020 11:19 AM EDT Temperature 36.2 ??C (97.1 ??F) 08/17/2020 11:19 AM E DT Respiratory Rate - - Oxygen Saturation 97% 08/17/2020 11:19 AM EDT Inhaled Oxygen Concentration - - Weight 83.5 kg (184 lb) 08/17/2020 11:19 AM EDT Height 154.9 cm (5' 1 ) 08/17/2020 11:19 AM EDT Body Mass Index 34.77 08/17/2020 11:19 AM EDT documented in this encounter Progress Notes * Roc Tracey PA-C - 08/17/2020 11:30 AM EDT Chief Complaint F/u for Diabetes Mellitus. HPI Gertrudis Gonzalez is a 64 y.o. female with chronic back pain and HTN- on multiple antihypertensives followed by cardiology in [place], who is here today for f/u of Diabetes Mellitus type 2. The initial diagnosis of diabetes was made approximately 2015. Off Jardiance due to vaginal irritation. She continues to have episodes where she gets shaky and confused and symptoms resolve with soda or cake. She has checked her BG when this happens it is typically anywhere from 150 to 200. A1C- 7.8 (08/17/2020), 7.4 (01/16/2020), 8.5 (10/28/2019), 6.8 (04/18/2019), 7.4 (01/13/19), 7.4 (10/11/18), 7.6 (07/15/18), 7.2 (04/08/18), 7.7 (12/14/17), 6.7 (09/12/17), 8.9 (05/2017) Diabetic complications: gastroparesis followed by GI at [facility] Eye exam current (within one year): [facility] summer 2019, [facility] Foot care and dental care: [...] Air., Disp: 1 inhaler, Rfl: 11 ??? bethanechol (URECHOLINE) 50 MG [...] Disp: , Rfl: ??? glipizide (GLUCOTROL XL) 10 MG 24 hr tablet, Take 1 tablet by mouth Daily. Dose increase, Disp:90 tablet, Rfl: 1 ??? losartan (COZAAR) 100 MG tablet, Take 100 mg by mouth Daily., Disp: , Rfl: ??? metoclopramide (REGLAN) 5 MG tablet, Take 5 mg by mouth 3 (Three) Times a Day., Disp: , Rfl: ??? NIFEdipine CC (ADALAT CC) 90 MG 24 hr tablet, Take 60 mg by mouth Daily., Disp: , Rfl: ??? nystatin (MYCOSTATIN) 684155 UNIT/GM cream, Apply topically to the appropriate area as directed2 (Two) Times a Day As Needed (toma irritation)., Disp: 30 g, Rfl: 2 ??? omeprazole (priLOSEC) 40 MG capsule, Take 1 capsule by mouth Daily., Disp: 90 capsule, Rfl: 3 ??? pravastatin (PRAVACHOL) 10 MG tablet, Take 1 tablet by mouth Every Night., Disp: 30 tablet, Rfl: 5 ??? rOPINIRole (REQUIP) 1 MG tablet, TAKE [...] patient is not nervous/anxious. Physical Exam BP 140/84 Pulse 75 Temp 97.1 ??F (36.2 ??C) Ht 154.9 cm (61 ) Wt 83.5 kg (184 lb) LMP (LMP Unknown) SpO2 97% BMI 34.77 kg/m?? Body mass index is 34.77 kg/m??. Physical Exam Constitutional: She is oriented [...] Imaging Lab Results Component Value Date HGBA1C 7.8 08/17/2020 HGBA1C 7.3 05/17/2020 HGBA1C 7.4 01/16/2020 Office Visit on 08/17/2020 Component Date Value Ref Range Status ??? Glucose 08/17/2020 192* 70 - 130 mg/dL Final ??? Hemoglobin A1C 08/17/2020 7.8 % Final Assessment / Plan Diagnoses and all orders for this visit: 1. Mixed hyperlipidemia (Primary) 2. Uncontrolled type 2 diabetes mellitus with hyperglycemia ([facility]) - POC Glucose, Blood - POC Glycosylated Hemoglobin (Hb A1C) - glipizide (GLUCOTROL XL) 10 MG 24 hr tablet; Take 1 tablet by mouth Daily. Dose increase Dispense: 90 tablet; Refill: 1 Diabetes Mellitus 2 is under inadequate control. -A1c 7.8 -choice of medications is limited- intolerant to metformin, actos (rash), no GLP1 agonist due to gastroparesis, did not tolerate jardiance -with limited medication she would benefit from basal insulin but she is hesitant to start this -increase glipizide xl to 10 mg daily (in the morning) -continue januvia 100mg daily -watch carb intake -place freestyle carla 2 sensor on her today, she will write down times of her episodes of confusion and shakiness to correlate to BG readings -labs were done 05/2020, foot exam due [...] 05/2020 5. Education performed during this visit: intermediate frame tender diabetic complications discussed. , annual eye examinations at Ophthalmology discussed, dental hygiene discussed and foot care reviewed., home glucose monitoring emphasized, all medications, side effects and compliance discussed carefully and Hypoglycemia management and prevention reviewed. Reviewed ???ABCs??? of diabetes management (respective goals in parentheses): A1C (<7), blood pressure (<130/80), and cholesterol (LDL <100, if CVD <70). Hyperlipidemia -did not tolerate lipitor 10 mg, crestor mg -praluent/repatha not covered by insurance -on fenofibrate and pravastatin 10 mg -lipid panel was updated 05/2020 There are no Patient Instructions on file for this visit. Follow up: Return in about 3 months (around 11/17/2020). Discussed the nature of the disease including, [...] [facility] [address] [facility] [place] [address] Pj Ace MD [address] [facility] [address] [place] [address] documented as of this encounter Procedures Procedure Name Priority Date/Time Associated Diagnosis Comments POCT GLUCOSE, BLD (NON STRIP) Routine 08/17/2020 11:29 AM EDT Uncontrolled type 2 diabetes mellitus with hyperglycemia POCT GLYCOSYLATED HEMOGLOBIN (HGB A1C) Routine 08/17/2020 11:29 AM EDT Uncontrolled type 2 diabetes mellitus with hyperglycemia documented in this encounter Results * POC Glycosylated Hemoglobin (Hb A1C) (08/17/2020 11:29 AM EDT) Hemoglobin A1C 7.8 % [facility] Blood 08/17/2020 11:2 9 AM EDT us Vedrana Knezevic PA-C POINT OF CARE TEST ORDERAB LES Final Result [facility]
[address] [place] [address], * (ABNORMAL) POC Glucose, Blood (08/17/2020 11:29 AM EDT) Glucose 192(A) 70 - 130 mg/dL Blood 08/17/2020 11:2 9 AM EDT us Vedrana Knezevic PA-C POINT OF CARE TEST ORDERAB LES Final Result documented in this encounter Visit Diagnoses Diagnosis Mixed hyperlipidemia- Primary Uncontrolled type 2 diabetes mellitus with hyperglycemia documented in this encounter Care Teams Baggage Agent Relationship Specialty Start Date End Date Ev Augustin APRN [address] [place] [address] PCP - General Internal Medicine 04/12/18 08/18/21 documented as of this encounter
--- OUTSIDE RECORDS SUMMARY | 2024-02-20 09:10 | XMS_ITS | Encounter Summary ---
[facility] Address [address] [place] [id number] Care Team Providers Care Instructional Media Services Technician Name Role Phone Alex Davis MD Primary Care Provider [phone] Reason for Visit * Reason Onset Date Comments MAMMOGRAM APPT 01/30/2020 Encounter Details Date Type Department Care Team (Late st Contact Info) Description 01/30/2020 Telephone [facility]INE [address] [place] [address] Ev Augustin, HAT CUTTER [address] [place] [address] MAMMOGRAM APPT Social History Tobacco Use Types Packs/Day Years [...] Telephone Encounter - Ev Augustin APRN - 02/04/2020 8:48 AM EST Orders placed. * Telephone Encounter - Jessica Rosario - 02/04/2020 8:08 AM EST I spoke with pt; Pt states that she has a knot on her chest near the collar bone; pt states that Benita told her that if mamm's were normal that she would order an x-ray or US to see about this knot. * Telephone Encounter - Jessica Rosario - 02/02/2020 8:01 AM EST I am not understanding what you are wanting. The pt had both a screening & diagnostic mammogramcompleted. So I'm not sure what US you are wanting. I've been told by the mammo scheduling that the US is only done if they deem it necessary when doing the diagnostic mammogram. For example you order a diagnostic mammogram & US of what is necessary. They automatically schedule the mammogram, but the US order is just there as an in case order. But sometimes it is not used. Please Advise. * Telephone Encounter - Aura Hutchinson RegSched Rep - 01/30/2020 3:26 PM EDT PT CALLED STATED THAT HER MAMMOGRAM TEST CAME BACK GOOD AND WAS TOLD TO CALL BACK AND HAVE A ULTRASOUND APPT SET UP. PLEASE ADVISE. CALL BACK:[phone] documented in this encounter Plan of Treatment Upcoming Encounters Date Type Department Care Team (Late st Contact Info) Description 03/13/2024 2:45 PM EST Office Visit [facility] CARDIOLOGY [address] [place] [address] Pj Ace MD [address] [facility] [address] [address] documented as of this encounter Visit Diagnoses Not on filedocumented in this encounter Additional Health Concerns Infection Onset Date Last Indicated Resolved Time COVID Screen (preop/placement) 10/15/2020 10/15/2020 10/15/2020 7:48 PM EDT documented as of this encounter Care Teams Instructional Media Services Technician Relationship Specialty Start Date End Date Alex Davis MD [address] [place], [place] [id number] PCP - General Family Medicine 09/05/21 documented as of this encounter
--- OUTSIDE RECORDS SUMMARY | 2024-02-20 09:10 | XMS_ITS | Encounter Summary ---
[facility] Address [address] [place] [address] Care Team Providers Care Heater Tender Name Role Phone Ev Augustin APRN Primary Care Provider [phone] Reason for Referral * Consultation (Routine) - Closed Specialty Diagnoses / Procedures Referred By Contac t Referred To Contact Orthopedic Surgery Diagnoses Chronic pain of left ankle Ev Augustin APRN [address] [place] [address] Phone: tel: fax: [facility] [address] [place] [address] Phone: tel: fax: Referral ID Status Reason Start Date Expiration Date V isits Requested Visits Authorized [id number] Closed Specialty Services Required 11/09/2020 11/09/2021 1 1 Reason for Visit * Reason Comments Medicare Wellness-subsequent Depression Encounter Details Date Type Department Care Team ([facility] st Contact Info) Description 11/09/2020 11:15 AM EDT Office Visit [facility] MEDICINE [address] [place] [address] Ev Augustin APRN [address] [place] [address] Medicare annual wellness visit, subsequent (Primary Dx); Cough; Vaginal atrophy; Mixed hyperlipidemia; Chronic migraine without aura without status migrainosus, not intractable; Chronic pain of left ankle; Arthralgia, unspecified joint Social History Tobacco Use [...] Sign Reading Time Taken Comments Blood Pressure 138/66 11/09/2020 11:04 AM EDT Pulse 72 11/09/2020 11:04 AM EDT Temperature 36.2 ??C (97.2 ??F) 11/09/2020 1 1:04 AM EDT Respiratory Rate - - Oxygen Saturation 95% 11/09/2020 11: 04 AM EDT Inhaled Oxygen Concentration - - Weight 85.2 kg (187 lb 12.8 oz) 021 11:04 AM EDT Height 157.5 cm (5' 2 ) 11/09/2020 11:0 4 AM EDT Body Mass Index 34.35 11/09/2020 11:04 AM EDT documented in this encounter Progress Notes * Ev Augustin APRN - 11/09/2020 11:15 AM EDT QUICK REFERENCE INFORMATION: The ABCs of the Annual Wellness Visit Subsequent Medicare Wellness Visit HEALTH RISK ASSESSMENT 1955 Recent Hospitalizations: No hospitalization(s) within the last year.. Current Medical Providers: Patient Care Team: Ev Augustin APRN as PCP - General (Internal Medicine) Bebeto Adams MD as Consulting Physician (Pain Medicine) Damien Berg MD as Consulting Physician (Neurosurgery) Leidy Robertson MD as Consulting Physician (Internal Medicine) Guero Lunsford PA-C as Physician Interior Design Professor (Physician Interior Design Professor) Slime Hammer APRN as Nurse Practitioner (Gastroenterology) Roc Tracey PA-C as Physician Interior Design Professor (Family Medicine) Matty Lackey MD as Consulting Physician (Gastroenterology) Smoking Status: Social History Tobacco Use Smoking Status Never Smoker Smokeless Tobacco Never Used Alcohol Consumption: Social History Substance and Sexual Activity Alcohol Use No Depression Screen: PHQ-2/PHQ-9 Depression Screening 11/09/2020 Little interest or pleasure in doing things 1 Feeling down, depressed, or hopeless 1 Trouble falling or staying asleep, or sleeping too much 0 Feeling tired or having little energy 2 Poor appetite or overeating 3 Feeling bad about yourself - or that you are a failure or have let yourself or your family down 1 Trouble concentrating on things, such as reading the newspaper or watching television 2 Moving or speaking so slowly that other people could have noticed. Or the opposite - being so fidgety or restless that you have been moving around a lot more than usual 0 Thoughts that you would be better off , or of hurting yourself in some way 0 Total Score 10 If you checked off any problems, how difficult have these problems made it for you to do your work,take care of things at home, or get along with other people? Somewhat difficult Health Habits and Functional and Cognitive Screening: Functional & Cognitive Status 11/09/2020 Do you have difficulty preparing food and eating? No Do you have difficulty bathing yourself, getting dressed or grooming yourself? No Do you have difficulty using the toilet? No Do you have difficulty moving around from place to place? Yes Do you have trouble with steps or getting out of a bed or a chair? Yes Current Diet Unhealthy Diet Dental Exam - Eye Exam - Exercise (times per week) 0 times per week Current Exercises Include No Regular Exercise Current Exercise Activities Include - Do you need help using the phone? No Are you deaf or do you have serious difficulty hearing? No Do you need help with transportation? Yes Do you need help shopping? Yes Do you need help preparing meals? No Do you need help with housework? Yes Do you need help with laundry? Yes Do you need help taking your medications? No Do you need help managing money? No Do you ever drive or ride in a car without wearing a seat belt? No Have you felt unusual stress, anger or loneliness in the last month? Yes Who do you live with? Spouse If you need help, do you have trouble finding someone available to you? Yes Have you been bothered in the last four weeks by sexual problems? No Do you have difficulty concentrating, remembering or making decisions? No Does the patient have evidence of cognitive impairment? No Aspirin use counseling: Does not need ASA (and currently is not on it) Recent Lab Results: CMP: Lab Results Component Value Date BUN 19 05/17/2020 CREATININE 0.62 05/17/2020 EGFRIFNONA 97 05/17/2020 BCR 30.6 (H) 05/17/2020 NA 140 05/17/2020 K 4.2 05/17/2020 CO2 28.0 05/17/2020 CALCIUM 9.7 05/17/2020 ALBUMIN 4.50 05/17/2020 BILITOT 0.6 05/17/2020 ALKPHOS 146 (H) 05/17/2020 AST 52 (H) 05/17/2020 ALT 56 (H) 05/17/2020 Lipid Panel: Lab Results Component Value Date CHOL 181 05/17/2020 TRIG 129 05/17/2020 HDL 57 05/17/2020 VLDL 23 05/17/2020 LDLHDL 1.72 05/17/2020 HbA1c: Lab Results Component Value Date HGBA1C 7.8 08/17/2020 Age-appropriate Screening Schedule: Refer to the list below for future screening recommendations based on patient's age, sex and/or medical conditions. Orders for these recommended tests are listed in the plan section. The patient has been provided with a written plan. Health Maintenance Topic Date Due ??? ZOSTER VACCINE (1 of 2) 01/15/2021 (Originally 2006) ??? INFLUENZA VACCINE 12/31/2020 ??? DIABETIC FOOT EXAM 01/15/2021 ??? MAMMOGRAM 01/29/2021 ??? HEMOGLOBIN A1C 02/17/2021 ??? LIPID PANEL 05/17/2021 ??? URINE MICROALBUMIN 05/17/2021 ??? DIABETIC EYE EXAM 09/02/2021 ??? TDAP/TD VACCINES (2 - Td or Tdap) 05/07/2025 ??? PAP SMEAR Discontinued Subjective History of Present Illness Gertrudis Gonzalez is a 64 y.o. female who presents for an Subsequent Wellness Visit. C/o arthralgia and chronic left ankle pain. Has been seeing a naval engineer who did steroid injectionsfor bone spur in heel. Has told her she has bone on bone in ankle joint and joint replacement recommended. Pt want to try to not have surgery. Wants to see ortho on what other options she has. Also has general arthralgia multi joints and asking about checking for rheumatoid. Gets an intermittent cough; uses prn inhaler. See's endo for diabetes mgt. HLD chronic. On statin. The following portions of the patient's history were reviewed and updated as appropriate: allergies, current medications, past family history, past medical history, past social history, past surgicalhistory and problem list. Outpatient Medications Prior to Visit Medication Sig Dispense Refill ??? albuterol sulfate HFA 108 (90 Base) MCG/ACT inhaler Inhale 2 puffs Every 6 (Six) Hours As Needed for Wheezing or Shortness of Air. 1 inhaler 11 ??? bethanechol (URECHOLINE) 50 MG tablet Take 50 mg by mouth 3 (Three) Times a Day. ??? bisoprolol (ZEBeta) 5 MG tablet Take 5 mg by mouth Daily. ??? ciclopirox (LOPROX) 0.77 % gel ??? Continuous Blood Gluc Service Or Work Dispatcher (FreeStyle Nevaeh 2 Skandia) device 1 Device Continuous. 1 each 0 [...] 1 TABLET DAILY 90 tablet 3 ??? losartan (COZAAR) 100 MG tablet Take 100 mg by mouth Daily. ??? metoclopramide (REGLAN) 5 MG tablet Take 5 mg by mouth 3 (Three) Times a Day. ??? NIFEdipine CC (ADALAT CC) 90 MG 24 hr tablet Take 60 mg by mouth Daily. ??? omeprazole (priLOSEC) 40 MG capsule TAKE 1 CAPSULE DAILY 90 capsule 3 ??? pravastatin (PRAVACHOL) 10 MG tablet Take 1 tablet by mouth Every Night. 30 tablet 5 ??? rOPINIRole (REQUIP) 1 MG tablet TAKE [...] po hs prn 180 tablet 3 ??? Lantus SoloStar 100 UNIT/ML injection pen ??? meloxicam (MOBIC) 7.5 MG tablet ??? NIFEdipine CC (ADALAT CC) 60 MG 24 hr tablet ??? Insulin Glargine (BASAGLAR KWIKPEN) 100 UNIT/ML injection pen Start with 10 units qHS, increaseby 2 units every 3 days until fasting sugar consistently <150, can increase up to 30 units if needed 27 mL 1 ??? nystatin (MYCOSTATIN) 692734 UNIT/GM cream Apply topically to the appropriate area as directed 2 (Two) Times a Day As Needed (toma irritation). 30 g 2 ??? oxyCODONE-acetaminophen (PERCOCET) 5-325 MG per tablet Take 1 tablet by mouth Every 4 (Four) Hours As Needed. 5 tablet 0 ??? TRULANCE 3 MG tablet ??? vitamin B-6 (PYRIDOXINE) 100 MG tablet pyridoxine (vitamin B6) No facility-administered medications prior to visit. Patient Active Problem List Diagnosis ??? Anxiety and depression ??? Fatigue ??? Mixed hyperlipidemia ??? Herniated lumbar intervertebral disc ??? Vaginal atrophy ??? Postlaminectomy syndrome of lumbar region ??? Meningeal adhesions/lumbar arachnoiditis ??? Lumbar facet arthropathy/lumbar spondylosis without myelopathy ??? Sacroiliac joint dysfunction of left side ??? Obesity with sleep apnea ??? Physical deconditioning ??? Moderate obesity ??? Insomnia ??? History of migraine headaches ??? Essential hypertension ??? Myofascial pain syndrome ??? Controlled type 2 diabetes mellitus without complication, without long-term current use of insulin (CMS/HCC) ??? Elevated liver enzymes ??? Pain of upper abdomen ??? Steatosis of liver ??? Obstructive sleep apnea, adult ??? Encounter for fitting and adjustment of neuropacemaker of spinal cord ??? Migration of spinal cord stimulator (CMS/HCC) ??? 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 Erythrocytosis Advance Care Planning: ACP discussion was held with the patient during this visit. Patient does not have an advance directive, information provided. Identification of Risk Factors: Risk factors include: Advance Directive Discussion Breast Cancer/Mammogram Screening Cardiovascular risk Colon Cancer Screening Diabetic Lab Screening Obesity/Overweight Osteoporosis Risk. Review of Systems Constitutional: Negative for chills and fever. Eyes: Negative for visual disturbance. Respiratory: Negative for shortness of breath. Cardiovascular: Negative for chest pain, palpitations and leg swelling. Gastrointestinal: Negative for abdominal pain, constipation, diarrhea and nausea. Genitourinary: Negative for difficulty urinating. Musculoskeletal: Positive for arthralgias. Skin: Negative for rash. Neurological: Negative for headaches. Psychiatric/Behavioral: Negative for dysphoric mood. The patient is not nervous/anxious. Compared to one year ago, the patient feels her physical health is the same. Compared to one year ago, the patient feels her mental health is the same. Objective Physical Exam Vitals reviewed. Constitutional: General: She is not in acute distress. Appearance: She is well-developed. She is not diaphoretic. HENT: Head: Normocephalic. Eyes: General: Lids are normal. Right eye: No discharge. Left eye: No discharge. Extraocular Movements: Extraocular movements intact. Conjunctiva/sclera: Conjunctivae normal. Pupils: Pupils are equal, round, and reactive to light. Neck: Vascular: No JVD. Cardiovascular: Rate and Rhythm: Normal rate and regular rhythm. Heart sounds: Normal heart sounds. Comments: No edema Pulmonary: Effort: Pulmonary effort is normal. No respiratory distress. Breath sounds: Normal breath sounds. Abdominal: General: Bowel sounds are normal. There is no abdominal bruit. Palpations: Abdomen is soft. There is no hepatomegaly or splenomegaly. Tenderness: There is no abdominal tenderness. Musculoskeletal: Cervical back: Normal range of motion and neck supple. Left ankle: No swelling or deformity. No tenderness. Decreased range of motion. Lymphadenopathy: Head: Right side of head: No submental, submandibular or tonsillar adenopathy. Left side of head: No submental, submandibular or tonsillar adenopathy. Skin: General: Skin is warm and dry. Capillary Refill: Capillary refill takes less than 2 seconds. Findings: No rash. Neurological: General: No focal deficit present. Mental Status: She is alert and oriented to person, place, and time. Cranial Nerves: No cranial nerve deficit. Coordination: Coordination normal. Gait: Gait normal. Psychiatric: Mood and Affect: Mood normal. Speech: Speech normal. Behavior: Behavior normal. Vitals: 11/09/20 1104 BP: 138/66 Pulse: 72 Temp: 97.2 ??F (36.2 ??C) SpO2: 95% Weight: 85.2 kg (187 lb 12.8 oz) Height: 157.5 cm (62 ) PainSc: 0-No pain Patient's Body mass index is 34.35 kg/m??. indicating that she is obese (BMI >30). Obesity-related health conditions include the following: hypertension, diabetes mellitus and dyslipidemias. Obesity is unchanged. BMI is is above average; BMI management plan is completed. We discussed portion control and increasing exercise.. Assessment/Plan Patient Self-Management and Personalized Health Advice The patient has been provided with information about: diet, exercise, weight management and designing advance directives and preventive services including: ?? Annual Wellness Visit (AWV). Colonoscopy, mammogram current. Vaccines current. Reviewed cardiac risk factors; discussed updated ekg for screening purposes. Pt declines states dee recent ekgs at [facility]. No chest pain. Visit Diagnoses: ICD-10-CM ICD-9-CM 1. Medicare annual wellness visit, subsequent Z00.00 V70.0 2. Cough R05 786.2 3. Vaginal atrophy N95.2 627.3 4. Mixed hyperlipidemia E78.2 272.2 5. Chronic migraine without aura without status migrainosus, not intractable G43.709 346.70 6. Chronic pain of left ankle M25.572 719.47 G89.29 338.29 7. Arthralgia, unspecified joint M25.50 719.40 Orders Placed This Encounter Procedures ??? LELAND Standing Status: Future Number of Occurrences: 1 Standing Expiration Date: 11/09/2021 Order Specific Question: Release to patient Answer: Immediate ??? RHEUMATOID FACTOR Standing Status: Future Number of Occurrences: 1 Standing Expiration Date: 11/09/2021 Order Specific Question: Release to patient Answer: Immediate ??? Sedimentation Rate Standing Status: Future Number of Occurrences: 1 Standing Expiration Date: 11/09/2021 Order Specific Question: Release to patient Answer: Immediate ??? Uric acid Standing Status: Future Number of Occurrences: 1 Standing Expiration Date: 11/09/2021 Order Specific Question: Release to patient Answer: Immediate ??? Ambulatory Referral to Orthopedic Surgery Referral Priority: Routine Referral Type: Consultation Referral Reason: Specialty Services Required Requested Specialty: Orthopedic Surgery Number of Visits Requested: 1 Outpatient Encounter Medications as of 11/09/2020 Medication Sig Dispense Refill ??? albuterol sulfate HFA 108 (90 Base) MCG/ACT inhaler Inhale 2 puffs Every 6 (Six) Hours As Needed for Wheezing or Shortness of Air. 1 inhaler 11 ??? bethanechol (URECHOLINE) 50 MG tablet Take 50 mg by mouth 3 (Three) Times a Day. ??? bisoprolol (ZEBeta) 5 MG tablet Take 5 mg by mouth Daily. ??? ciclopirox (LOPROX) 0.77 % gel ??? Continuous Blood Gluc Service Or Work Dispatcher (ZeroNines TechnologyStyle Nevaeh 2 Skandia) device 1 Device Continuous. 1 each 0 [...] 1 TABLET DAILY 90 tablet 3 ??? losartan (COZAAR) 100 MG tablet Take 100 mg by mouth Daily. ??? metoclopramide (REGLAN) 5 MG tablet Take 5 mg by mouth 3 (Three) Times a Day. ??? NIFEdipine CC (ADALAT CC) 90 MG 24 hr tablet Take 60 mg by mouth Daily. ??? omeprazole (priLOSEC) 40 MG capsule TAKE 1 CAPSULE DAILY 90 capsule 3 ??? pravastatin (PRAVACHOL) 10 MG tablet Take 1 tablet by mouth Every Night. 30 tablet 5 ??? rOPINIRole (REQUIP) 1 MG tablet TAKE [...] po hs prn 180 tablet 3 ??? Lantus SoloStar 100 UNIT/ML injection pen ??? meloxicam (MOBIC) 7.5 MG tablet ??? NIFEdipine CC (ADALAT CC) 60 MG 24 hr tablet ??? [DISCONTINUED] Insulin Glargine (BASAGLAR KWIKPEN) 100 UNIT/ML injection pen Start with 10 units qHS, increase by 2 units every 3 days until fasting sugar consistently <150, can increase up to30 units if needed 27 mL 1 ??? [DISCONTINUED] nystatin (MYCOSTATIN) [id number] UNIT/GM cream Apply topically to the appropriate area as directed 2 (Two) Times a Day As Needed (toma irritation). 30 g 2 ??? [DISCONTINUED] oxyCODONE-acetaminophen (PERCOCET) 5-325 MG per tablet Take 1 tablet by mouth Every 4 (Four) Hours As Needed. 5 tablet 0 ??? [DISCONTINUED] TRULANCE 3 MG tablet ??? [DISCONTINUED] vitamin B-6 (PYRIDOXINE) 100 MG tablet pyridoxine (vitamin B6) No facility-administered encounter medications on file as of 11/09/2020. Reviewed use of high risk medication in the elderly: yes Reviewed for potential of harmful drug interactions in the elderly: yes Follow Up: Return in about 1 year (around 11/09/2021), or if symptoms worsen or fail to improve, for Medicare Wellness. An After Visit Summary and PPPS with all of these plans were given to the patient. Ev Augustin APRN documented in this encounter Plan of Treatment Upcoming Encounters Date Type Department Care Team (Late st Contact Info) Description 03/13/2024 2:45 PM EST Office Visit [facility] C[facility] [address] [place] [place] [address] Pj Ace MD [address] [facility] [address] [place] [address] Scheduled Referrals Name Type Priority Associated Diagnoses Order Schedule Ambulatory Referral to Orthopedic Surgery Outpatient Referral Routine Chronic pain of left ankle Ordered: 11/09/2020 documented as of this encounter Results * Uric acid (11/09/2020 11:53 AM EDT) Uric Acid 3.4 2.4 - 5.7 mg/dL 11/10/2020 12:22 AM EDT [facility] Blood Venipuncture / Unknown 11/09/2020 11:53 AM EDT 11/09/2020 11:53 AM EDT Ev Esquivel Charli DIRECTOR OF EVENT MANAGEMENT LAB BLOOD ORDERABLES Rosie l Result Performing Organization Address City/[facility]/ZIP Co de Phone Number [facility]
[address] [place] [address], * Sedimentation Rate (11/09/2020 11:53 AM EDT) Sed Rate 26 0 - 30 mm/hr 11/09/2020 6:35 PM EDT [facility] Blood Venipuncture / Unknown 11/09/2020 11:53 AM EDT 11/09/2020 11:53 AM EDT Ev Esquivel Charli DIRECTOR OF EVENT MANAGEMENT LAB BLOOD ORDERABLES Rosie l Result Performing Organization Address [facility] Co de Phone Number [facility]
[address] [place] [address], * RHEUMATOID FACTOR (11/09/2020 11:53 AM EDT) Rheumatoid Factor Quantitative <10.0 0.0 - 14.0 IU/mL 11/10/2020 12:52 AM EDT [facility] Blood Venipuncture / Unknown 11/09/2020 11:53 AM EDT 11/09/2020 11:53 AM EDT Ev Esquivel Charli DIRECTOR OF EVENT MANAGEMENT LAB BLOOD ORDERABLES Rosie l Result Performing Organization Address City/[facility]/ZIP Co de Phone Number [facility]
[address] [place] [address], * LELAND (11/09/2020 11:53 AM EDT) LELAND Direct Negative Negative 11/10/2020 3:08 PM EDT [facility] Blood Venipuncture / Unknown 11/09/2020 11:53 AM EDT 11/09/2020 11:53 AM EDT Narrative [facility] - 11/10/2020 3:08 PM EDT Performed at: ??01 - [facility] [address] ??[id number] Boardinghouse Keeper: Malik Hall PhD, Phone: ??[phone] us Ev Augustin APRN LAB BLOOD ORDERABLES Rosie l Result [facility] [address] [place] [id number], documented in this encounter Visit Diagnoses Diagnosis Medicare annual wellness visit, subsequent- Primary Cough Vaginal atrophy Postmenopausal atrophic vaginitis Mixed hyperlipidemia Chronic migraine without aura without status migrainosus, not intractable Chronic pain of left ankle Arthralgia, unspecified joint documented in this encounter Care Teams Heater Tender Relationship Specialty Start Date End Date Ev Augustin APRN [address] [place] [address] PCP - General Internal Medicine 04/12/18 08/18/21 documented as of this encounter
--- OUTSIDE RECORDS SUMMARY | 2024-02-20 09:10 | XMS_ITS | Encounter Summary ---
[facility] Address [address] [place] [address] Care Team Providers Care Half Backer Name Role Phone Ev Augustin APRN Primary Care Provider [phone] [phone] Encounter Details Date Type Department Care Team (Late st Contact Info) Description 05/28/2020 10:00 AM EST Office Visit [facility] HEMATOLOGY & ONCOLOGY [address] [facility] [address] [place] [id number] Yoanna Mccoy, BACK PADDER [address] [facility] [address] [place] [id number] Erythrocytosis (Primary Dx); Elevated ferritin, hemoglobin, and red blood cell [...] Sign Reading Time Taken Comments Blood Pressure 121/68 05/28/2020 9:44 AM EST Pulse 71 05/28/2020 9:44 AM EST Temperature 36 ??C (96.8 ??F) 05/28/2020 9:44 AM EST Respiratory Rate 18 05/28/2020 9:44 AM EST Oxygen Saturation 92% 05/28/2020 9:44 AM EST Inhaled Oxygen Concentration - - Weight 82.6 kg (182 lb) 05/28/2020 9:44 AM EST Height 154.9 cm (5' 1 ) 05/28/2020 9:44 AM EST Body Mass Index 34.39 05/28/2020 9:44 AM EST documented in this encounter Progress Notes * Darius Yoanna M, BACK PADDER - 05/28/2020 10:00 AM EST PROBLEM LIST: 1. Elevated ferritin 2. NAFLD 3. Gastroparesis 4. DM2 Subjective CHIEF COMPLAINT: elevated ferritin and hgb HISTORY OF PRESENT ILLNESS: Gertrudis Gonzalez returns for follow-up. Overall she has been well. She denies any recurrent infections or shortness of breath no joint swelling or erythema. No headaches or vision changes. She continues to have untreated sleep apnea. She does not wear her CPAP machine. Past Medical History, Past Surgical History, Social History, Family History have been reviewed and are without significant changes except as mentioned. Review of Systems A comprehensive 14 point review of systems was performed and was negative except as mentioned. Medications: The current medication list was reviewed in the EMR ALLERGIES: Allergies Allergen Reactions ??? Iain Inhibitors Cough ??? Amlodipine Diarrhea ??? Beta Adrenergic Blockers Rash ??? Cyclobenzaprine Rash ??? Hydrochlorothiazide Rash ??? Hyzaar [Losartan Potassium-Hctz] Rash ??? Latex Rash ??? Losartan Rash ??? Metformin Rash ??? Penicillins Rash ??? Pioglitazone Rash ??? Spironolactone Rash Objective BP 121/68 Pulse 71 Temp 96.8 ??F (36 ??C) Resp 18 Ht 154.9 cm (61 ) Wt 82.6 kg (182 lb) LMP (LMP Unknown) SpO2 92% BMI 34.39 kg/m?? Vitals: 05/28/20 0944 PainSc: 0-No pain Comment: No new pain Performance Status: 1 General: well appearing female in no acute distress Neuro: alert and oriented HEENT: sclerae anicteric, oropharynx clear Lymphatics: no cervical, supraclavicular, or axillary adenopathy Cardiovascular: regular rate and rhythm, no murmurs Lungs: clear to auscultation bilaterally Abdomen: soft, nontender, nondistended. No palpable organomegaly Extremities: no lower extremity edema Skin: no rashes, lesions, bruising, or petechiae Psych: mood and affect appropriate RECENT LABS: WBC Date Value Ref Range Status 05/28/2020 7.80 3.40 - 10.80 10*3/mm3 Final RBC Date Value Ref Range Status 05/28/2020 5.70 (H) 3.77 - 5.28 10*6/mm3 Final Hemoglobin Date Value Ref Range Status 05/28/2020 16.4 (H) 12.0 - 15.9 g/dL Final Hematocrit Date Value Ref Range Status 05/28/2020 49.9 (H) 34.0 - 46.6 % Final MCV Date Value Ref Range Status 05/28/2020 87.6 79.0 - 97.0 fL Final MCH Date Value Ref Range Status 05/28/2020 28.8 26.6 - 33.0 pg Final MCHC Date Value Ref Range Status 05/28/2020 32.9 31.5 - 35.7 g/dL Final RDW Date Value Ref Range Status 05/28/2020 13.4 12.3 - 15.4 % Final RDW-SD Date Value Ref Range Status 10/20/2019 43.1 37.0 - 54.0 fl Final MPV Date Value Ref Range Status 05/28/2020 8.5 6.0 - 12.0 fL Final Platelets Date Value Ref Range Status 05/28/2020 254 140 - 450 10*3/mm3 Final Neutrophil % Date Value Ref Range Status 05/28/2020 68.3 42.7 - 76.0 % Final Lymphocyte % Date Value Ref Range Status 05/28/2020 26.3 19.6 - 45.3 % Final Monocyte % Date Value Ref Range Status 05/28/2020 5.4 5.0 - 12.0 % Final Eosinophil % Date Value Ref Range Status 10/20/2019 1.6 0.3 - 6.2 % Final Basophil % Date Value Ref Range Status 10/20/2019 1.1 0.0 - 1.5 % Final Immature Grans % Date Value Ref Range Status 10/20/2019 0.6 (H) 0.0 - 0.5 % Final Neutrophils, Absolute Date Value Ref Range Status 05/28/2020 5.30 1.70 - 7.00 10*3/mm3 Final Lymphocytes, Absolute Date Value Ref Range Status 05/28/2020 2.10 0.70 - 3.10 10*3/mm3 Final Monocytes, Absolute Date Value Ref Range Status 05/28/2020 0.40 0.10 - 0.90 10*3/mm3 Final Eosinophils, Absolute Date Value Ref Range Status 10/20/2019 0.10 0.00 - 0.40 10*3/mm3 Final Basophils, Absolute Date Value Ref Range Status 10/20/2019 0.07 0.00 - 0.20 10*3/mm3 Final Immature Grans, Absolute Date Value Ref Range Status 10/20/2019 0.04 0.00 - 0.05 10*3/mm3 Final nRBC Date Value Ref Range Status 10/20/2019 0.2 0.0 - 0.2 /100 WBC Final Hemochromatosis Gene Hemochromatosis Mutation Collected: 11/28/18 1350 Resulting lab: [facility] Value: Comment Comment: NO MUTATION IDENTIFIED Assessment/Plan Gertrudis Gonzalez is a 64 y.o. year old female with elevated ferritin and erythrocytosis. Elevated ferritin: No evidence of hereditary hemochromatosis based on genetic testing. Ferritin level today is pending. Ferritin level 6 months ago was normal 124.70 along with normal iron levels as well. Erythrocytosis: She had a mildly elevated hematocrit 49.9% with a slightly elevated hemoglobin of 16.4 g/dL today. She has untreated sleep apnea. She is still not using CPAP for sleep apnea. I will see her back in 6 months to recheck labs. ?? I spent 24 minutes caring for Gertrudis on this date of service. This time includes time spent by me in the following activities: preparing for the visit, reviewing tests, obtaining and/or reviewing a separately obtained history, performing a medically appropriate examination and/or evaluation, counseling and educating the patient/family/caregiver and documenting information in the medical record. Yoanna Mccoy APRN [facility] Hematology and Oncology 05/28/2020 CC: documented in this encounter Plan of Treatment Upcoming Encounters Date Type Department Care Team (Late st Contact Info) Description 03/13/2024 2:45 PM EST Office Visit [facility] CARDIOLOGY [address] [place] [address] [place] [address] Pj Ace MD [address] [facility] [address] [place] [address] documented as of this encounter Results * (ABNORMAL) Iron Profile (12/02/2020 10:45 AM EDT) Iron 71 37 - 145 mcg/dL 12/02/2020 11:58 AM EDT [facility] Iron Saturation (TSAT) 18(L) 20 - 50 % 12/02/2020 11:58 AM EDT [facility] Transferrin 270 200 - 360 mg/dL 12/02/2020 11:58 AM EDT [facility] TIBC 402 298 - 536 mcg/dL 12/02/2020 11:58 AM EDT [facility] Blood Venipuncture / Unknown 12/02/2020 10:45 AM EDT 12/02/2020 10:45 AM EDT Yoanna Mccoy APRN LAB BLOOD ORDERABLES Final Result [facility]
[address] [place] [address], * (ABNORMAL) Ferritin (12/02/2020 10:45 AM EDT) Ferritin 293.60(H) 13.00 - 150.00 ng/mL 12/02/2020 12:12 PM EDT [facility] Blood Venipuncture / Unknown 12/02/2020 10:45 AM EDT 12/02/2020 10:45 AM EDT Narrative [facility] - 12/02/2020 12:12 PM EDT Results may be falsely decreased if patient taking Biotin. Yoanna Mccoy APRN LAB BLOOD ORDERABLES Final Result [facility]
[address] [place] [address], documented in this encounter Visit Diagnoses Diagnosis Erythrocytosis- Primary Polycythemia, secondary Elevated ferritin, hemoglobin, and red blood cell count documented in this encounter Care Teams Half Backer Relationship Specialty Start Date End Date Ev Augustin APRN [address] [place] [address] PCP - General Internal Medicine 04/12/18 08/18/21 documented as of this encounter
--- OUTSIDE RECORDS SUMMARY | 2024-02-20 09:10 | XMS_ITS | Encounter Summary ---
[facility] [address] [place] [address] Care Team Providers Care Home Energy Rater Name Role Phone Ev Augustin APRN Primary Care Provider [phone] Encounter Details Date Type Department Care Team (Late st Contact Info) Description 12/02/2020 11:15 AM EDT Office Visit [facility] HEMATOLOGY & ONCOLOGY [address] [phone] Nelly Clayton MD [address] [address] Erythrocytosis (Primary Dx) Social History Tobacco Use Types [...] Sign Reading Time Taken Comments Blood Pressure 144/68 12/02/2020 10:48 AM EDT Pulse 113 12/02/2020 10:48 AM EDT Temperature 36.2 ??C (97.1 ??F) 12/02/2020 10:48 AM E DT Respiratory Rate 18 12/02/2020 10:48 AM EDT Oxygen Saturation 98% 12/02/2020 10:48 AM EDT Inhaled Oxygen Concentration - - Weight 86.2 kg (190 lb) 12/02/2020 10:48 AM EDT Height 157.5 cm (5' 2.01 ) 12/02/2020 10:48 AM E DT Body Mass Index 34.74 12/02/2020 10:48 AM EDT documented in this encounter Progress Notes * Nelly Clayton MD - 12/02/2020 11:15 AM EDT PROBLEM LIST: 1. Elevated ferritin 2. NAFLD 3. Gastroparesis 4. DM2 Subjective CHIEF COMPLAINT: elevated ferritin and hgb HISTORY OF PRESENT ILLNESS: Gertrudis Gonzalez returns for follow-up. She says she is struggling to manage her diabetes. Otherwiseno new complaints. Objective BP 144/68 Pulse 113 Temp 97.1 ??F (36.2 ??C) (Temporal) Resp 18 Ht 157.5 cm (62.01 ) Wt 86.2 kg (190 lb) LMP (LMP Unknown) SpO2 98% BMI 34.74 kg/m?? Vitals: 12/02/20 1048 PainSc: 0-No pain Performance Status: 1 General: well appearing female in no acute distress Neuro: alert and oriented HEENT: sclerae anicteric, oropharynx clear Extremities: no lower extremity edema Skin: no rashes, lesions, bruising, or petechiae Psych: mood and affect appropriate RECENT LABS: Lab Results Component Value Date WBC 6.30 12/02/2020 HGB 14.8 12/02/2020 HCT 45.2 12/02/2020 MCV 88.2 12/02/2020 PLT 248 12/02/2020 Lab Results Component Value Date IRON 68 05/28/2020 TIBC 417 05/28/2020 FERRITIN 164.10 (H) 05/28/2020 Hemochromatosis Gene Hemochromatosis Mutation Collected: 11/28/18 1350 Resulting lab: [facility] Value: Comment Comment: NO MUTATION IDENTIFIED Assessment/Plan Gertrudis Gonzalez is a 64 y.o. year old female with elevated ferritin and erythrocytosis. Elevated ferritin: No evidence of hereditary hemochromatosis based on genetic testing. Ferritin level has been very mildly elevated. Today's level is pending. Assuming no significant change on today's level I do not think this needs further monitoring. Erythrocytosis: hgb and Hct are normal today. She still has untreated sleep apnea, and I would not be surprised if she has mildly elevated red blood cells in the future. She can continue to follow-up with her primary care provider. I would recommend checking the ferritin every 6 to 12 months, and CBC as indicated. We are happy to see her in the future if needed. ?? Nelly Clayton MD [facility] Hematology and Oncology 12/02/2020 CC: documented in this encounter Plan of Treatment Upcoming Encounters Date Type Department Care Team (Late st Contact Info) Description 03/13/2024 2:45 PM EST Office Visit [facility] CARDIOLOGY [address] [place] [address] [place] [phone] Pj Ace MD [address] [facility] [address] [address] documented as of this encounter Visit Diagnoses Diagnosis Erythrocytosis- Primary Polycythemia, secondary documented in this encounter Care Teams Home Energy Rater Relationship Specialty Start Date End Date Ev Augustin APRN [address] [place] [address] PCP - General Internal Medicine 04/12/18 08/18/21 documented as of this encounter
--- OUTSIDE RECORDS SUMMARY | 2024-02-20 09:10 | XMS_ITS | Encounter Summary ---
[facility] Address [address] [place] [address] Care Team Providers Care Pain Management Nurse Name Role Phone Alex Davis MD Primary Care Provider [phone] Reason for Visit * Reason Onset Date Comments Exposure To Known Illness 03/01/2020 Encounter Details Date Type Department Care Team (Late st Contact Info) Description 03/01/2020 Telephone [facility] INTERNAL MEDICINE [address] [place] [address] Ev Augustin, E BUSINESS SPECIALIST [address] [place] [address] Exposure To Known Illness Social History Tobacco Use Types Packs/Day Years [...] Telephone Encounter - Xiao Britton MA - 03/02/2020 1:21 PM EST Has telehealth today w/ Benita * Telephone Encounter - Ev Augustin APRN - 03/02/2020 1:16 PM EST Needs a telehealth visit with or Mirna. * Telephone Encounter - DovAngusmary Esquivel - 03/01/2020 3:12 PM EST Caller: Gertrudis Gonzalez Relationship to patient: Self Best call back number: [phone] (H) Concerns or Questions if Applicable: PATIENT HAS CALLED TO REQUEST A STEROID TO BE CALLED INTO HER PHARMACY TO ASSIST HER WITH HER SYMPTOMS. SYMPTOMS INCLUDE: DRAINAGE, COUGH, HEAD CONGESTION, CLAMMY, BELLY CRAMS Travel screen questions: TESTED POSITIVE FOR COVID 19 ON 02/28/2020 PATIENT'S SPOUSE HAS COVID 19 AND PNEUMONIA. HE WAS PUT IN THE HOSPITAL FOR IT LAST NIGHT. [facility] - [place] - [address] [phone] [facility] [phone] documented in this encounter Plan of Treatment Upcoming Encounters Date Type Department Care Team (Late st Contact Info) Description 03/13/2024 2:45 PM EST Office Visit [facility] CARDIOLOGY [address] [facility] [address] Pj Ace MD [address] [facility] [address] [address] documented as of this encounter Visit Diagnoses Not on filedocumented in this encounter Additional Health Concerns Infection Onset Date Last Indicated Resolved Time COVID Screen (preop/placement) 10/15/2020 10/15/2020 10/15/2020 7:48 PM EDT documented as of this encounter Care Teams Pain Management Nurse Relationship Specialty Start Date End Date Alex Davis MD [address] [place] [address] PCP - General Family Medicine 09/05/21 documented as of this encounter
--- OUTSIDE RECORDS SUMMARY | 2024-02-20 09:10 | XMS_ITS | Encounter Summary ---
[facility] Address [address] [place] [address] Care Team Providers Care Java Web Services Developer Name Role Phone Ev Augustin APRN Primary Care Provider [phone] Reason for Referral * Diagnostic Imaging (Routine) - Closed Specialty Diagnoses / Procedures Referred By Contac t Referred To Contact Radiology Diagnoses Lump in chest Procedures US chest Ev Augustin, INSURANCE SALES MANAGER [address] [place] [address] Phone: tel: fax: [place] [address] Phone: tel: Referral ID Status Reason Start Date Expiration Date Visits Re quested Visits Authorized [id number] Closed 02/04/2020 02/03/2021 1 1 Reason for Visit * Diagnostic Imaging (Routine) - Closed Specialty Diagnoses / Procedures Referred By Contac t Referred To Contact Radiology Diagnoses Lump in chest Procedures US chest Ev Augustin, INSURANCE SALES MANAGER [address] [place], [place] [id number] Phone: tel: fax: [address] [address] Phone: tel: Referral ID Status Reason Start Date Expiration Date Visits Re quested Visits Authorized [id number] Closed 02/04/2020 02/03/2021 1 1 Encounter Details Date Type Department Care Team (Latest Contact Info) Description 02/16/2020 10:44 AM EST - 02/16/2020 11:59 PM [facility] Hospital Encounter [facility] [place] [address] [place] [address] Ev Augustin, INSURANCE SALES MANAGER [address] [place] [address] Lump in chest Discharge Disposition: Home or Self Care Social [...] CENTER CARDIOLOGY [address] [place] [address] jP Ace MD [address] [facility] [address] [place] [address] documented as of this encounter Procedures Procedure Name Priority Date/Time Associated Diagnosis Comments US CHEST Routine 02/16/2020 11:17 AM EST Lump in chest documented in this encounter Results * US Chest (02/16/2020 11:17 AM EST) Anatomical Region Laterality Modality Body, Chest Ultrasound 02/16/2020 1:11 PM EST Impressions 02/17/2020 8:26 AM EST Area of isoechoic prominence subcutaneous fat left infraclavicular region area of interest concerning for lipoma without complex features or inflammation. D: ??02/16/2020 E: ??02/16/2020 ?? This report was finalized on 02/17/2020 8:[address] Jann Stover. Narrative 02/17/2020 8:26 AM EST EXAMINATION: US CHEST-02/16/2020: INDICATION: Knot anterior chest under clavicle; R22.2-Localized swelling, mass and lump, trunk. TECHNIQUE: Ultrasound soft tissues, limited. COMPARISON: NONE. FINDINGS: Area of interest scanning soft tissues, limited, left anterior chest wall infraclavicular region with an isoechoic area to the adjacent subcutaneous fat measuring up to 3.2 x 0.9 x 2.8 cm without complex features or inflammatory process, and no associated focal fluid collection concerning for lipomatous involvement. Procedure Note Jann Stover DO - 02/17/2020 EXAMINATION: US CHEST-02/16/2020: INDICATION: Knot anterior chest under clavicle; R22.2-Localized swelling, mass and lump, trunk. TECHNIQUE: Ultrasound soft tissues, limited. COMPARISON: NONE. FINDINGS: Area of interest scanning soft tissues, limited, left anterior chest wall infraclavicular region with an isoechoic area to the adjacent subcutaneous fat measuring up to 3.2 x 0.9 x 2.8 cm without complex features or inflammatory process, and no associated focal fluid collection concerning for lipomatous involvement. IMPRESSION: Area of isoechoic prominence subcutaneous fat left infraclavicular region area of interest concerning for lipoma without complex features or inflammation. E: 02/16/2020 This report was finalized on 02/17/2020 8:[address] Jann Stover. us Ev Augustin INSURANCE SALES MANAGER IMG US ORDERABLES Final R esult documented in this encounter Visit Diagnoses Diagnosis Lump in chest Swelling, mass, or lump in chest documented in this encounter Care Teams Java Web Services Developer Relationship Specialty Start Date End Date Ev Augustin APRN [address] [place] [address] PCP - General Internal Medicine 04/12/18 08/18/21 documented as of this encounter
--- OUTSIDE RECORDS SUMMARY | 2024-02-20 09:11 | XMS_ITS | Encounter Summary ---
[facility] Organization [facility] Address [address] [place] [id number] Care Team Providers Care Machine Cloth Trimmer Name Role Phone Ev Augustin APRN Primary Care Provider [phone] Reason for Visit * Reason Comments Follow-up DM 2 Encounter Details Date Type Department Care Team (Late st Contact Info) Description 10/28/2019 10:00 AM EDT Office Visit [facility] [address] [facility] [address] [place] [phone] Roc Tracey PA-C [address] [facility] [address] [place] [address] Uncontrolled type 2 diabetes mellitus with hyperglycemia (Primary Dx); Mixed hyperlipidemia; Benign essential hypertension Social History Tobacco Use Types Packs/Day Years Used Date Smoking Tobacco: Never Smokeless Tobacco: Never Alcohol Use Standard Drinks/Week Comments No 0 (1 standard drink = 0.6 oz pur e alcohol) PHQ-2 Answer Date Recorded PHQ-2 Score 16 10/20/2019 Comments No Sex and Gender Information Value Date Recorded Sex Assigned at Not on file Legal Sex Female 10:25 AM EDT Gender Identity Not on file Sexual Orientation Not on file documented as of this encounter Last Filed Vital Signs Vital Sign Reading Time Taken Comments Blood Pressure 132/80 10/28/2019 10:10 AM EDT Pulse 64 10/28/2019 10:10 AM EDT Temperature - - Respiratory Rate - - Oxygen Saturation 98% 10/28/2019 10:10 AM EDT Inhaled Oxygen Concentration - - Weight 80.9 kg (178 lb 6.4 oz) 10/28/2019 10:10 AM EDT Height - - Body Mass Index 33.71 10/20/2019 10:34 AM EDT documented in this encounter Progress Notes * Roc Tracey PA-C - 10/28/2019 10:00 AM EDT Chief Complaint F/u for Diabetes Mellitus. HPI Gertrudis Gonzalez is a 63 y.o. female with chronic back pain and HTN- on multiple antihypertensives followed by cardiology in [place], who is here today for f/u of Diabetes Mellitus type 2. The initial diagnosis of diabetes was made approximately 2015. She stopped taking glimepiride on her own due to hypoglycemia. Was not taking AC despite multiple discussions about this. A1C- (10/28/2019), 6.8 (04/18/2019), 7.4 (01/13/19), 7.4 (10/11/18), 7.6 (07/15/18), 7.2 (04/08/18), 7.7 (12/14/17), 6.7 (09/12/17), 8.9 (05/2017) Diabetic complications: gastroparesis followed by GI at [facility] Eye exam current (within one year): yes- no retinopathy Foot care and dental care: discussed Current diabetic medications include: Jardiance 25mg daily - takes in the [...] or log for review. She reports fbs anywhere from 140-200. No hypoglycemia Nutrition: Current diet: unhealthy Current exercise: none [...] for Muscle Spasms., Disp: , Rfl: ??? Empagliflozin (Jardiance) 25 MG tablet, Take 25 mg by mouth Daily., Disp: 90 tablet, Rfl: 1 ??? estradiol (ESTRACE VAGINAL) 0.1 MG/GM vaginal cream, Insert 2 g into the vagina 1 (One) Time Per Week., Disp: 42.5 g, Rfl: 5 ??? fenofibrate (TRICOR) 145 MG tablet, Take 1 tablet by mouth Daily., Disp: 30 tablet, Rfl: 2 ??? furosemide (LASIX) 20 MG tablet, Take [...] Daily., Disp: 90 capsule, Rfl: 3 ??? pyridoxine (VITAMIN B-6) 100 MG tablet, Take 100 mg by mouth Daily., Disp: , Rfl: ??? rOPINIRole (REQUIP) 1 MG tablet, Take [...] pyridoxine (vitamin B6), Disp: , Rfl: ??? glimepiride (Amaryl) 2 MG tablet, Take 1 tablet by mouth Daily Before Supper., Disp: 90 tablet,Rfl: 1 Review of Systems Review of Systems [...] patient is not nervous/anxious. Physical Exam BP 132/80 Pulse 64 Wt 80.9 kg (178 lb 6.4 oz) LMP (LMP Unknown) SpO2 98% BMI 33.71 kg/m??Body mass index is 33.71 kg/m??. Physical Exam Constitutional: She is oriented [...] no thyromegaly present. Cardiovascular: Normal rate, regular rhythm, normal heart sounds and intact distal pulses. No murmur heard. Pulmonary/Chest: Effort normal and breath sounds normal. No respiratory distress. She has no wheezes. Abdominal: Soft. Bowel sounds are normal. There is no tenderness. Musculoskeletal: She exhibits no edema or tenderness. Lymphadenopathy: She has no cervical adenopathy. Neurological: She is alert and oriented to person, place, and time. Skin: Skin is warm, dry and intact. No rash noted. She is not diaphoretic. No erythema. Psychiatric: She has a normal mood and affect. Her speech is normal and behavior is normal. Judgment and thought content normal. Labs and Imaging Lab Results Component Value Date HGBA1C 8.50 (H) 10/20/2019 HGBA1C 6.8 04/18/2019 HGBA1C 7.4 01/13/2019 Office Visit on 10/28/2019 Component Date Value Ref Range Status ??? Glucose 10/28/2019 179* 70 - 130 mg/dL Final Lab on 10/20/2019 Component Date Value Ref Range Status ??? Glucose 10/20/2019 190* 65 - 99 mg/dL Final ??? BUN 10/20/2019 14 8 - 23 mg/dL Final ??? Creatinine 10/20/2019 0.59 0.57 - 1.00 mg/dL Final ??? Sodium 10/20/2019 137 136 - 145 mmol/L Final ??? Potassium 10/20/2019 4.3 3.5 - 5.2 mmol/L Final ??? Chloride 10/20/2019 99 98 - 107 mmol/L Final ??? CO2 10/20/2019 28.1 22.0 - 29.0 mmol/L Final ??? Calcium 10/20/2019 10.3 8.6 - 10.5 mg/dL Final ??? Total Protein 10/20/2019 8.1 6.0 - 8.5 g/dL Final ??? Albumin 10/20/2019 4.50 3.50 - 5.20 g/dL Final ??? ALT (SGPT) 10/20/2019 63* 1 - 33 U/L Final ??? AST (SGOT) 10/20/2019 39* 1 - 32 U/L Final ??? Alkaline Phosphatase 10/20/2019 153* 39 - 117 U/L Final ??? Total Bilirubin 10/20/2019 0.4 0.0 - 1.2 mg/dL Final ? ? eGFR Non Amer 10/20/2019 103 >60 mL/min/1.73 Final ??? Globulin 10/20/2019 3.6 gm/dL Final ??? A/G Ratio 10/20/2019 1.3 g/dL Final ??? BUN/Creatinine Ratio 10/20/2019 23.7 7.0 - 25.0 Final ??? Anion Gap 10/20/2019 9.9 5.0 - 15.0 mmol/L Final ??? Total Cholesterol 10/20/2019 249* 0 - 200 mg/dL Final ??? Triglycerides 10/20/2019 212* 0 - 150 mg/dL Final ??? HDL Cholesterol 10/20/2019 50 40 - 60 mg/dL Final ??? LDL Cholesterol 10/20/2019 157* 0 - 100 mg/dL Final ??? VLDL Cholesterol 10/20/2019 42.4* 5 - 40 mg/dL Final ??? LDL/HDL Ratio 10/20/2019 3.13 Final ??? 25 Hydroxy, Vitamin D 10/20/2019 29.6* 30.0 - 100.0 ng/ml Final ??? WBC 10/20/2019 6.32 3.40 - 10.80 10*3/mm3 Final ??? RBC 10/20/2019 5.74* 3.77 - 5.28 10*6/mm3 Final ??? Hemoglobin 10/20/2019 16.4* 12.0 - 15.9 g/dL Final ??? Hematocrit 10/20/2019 49.0* 34.0 - 46.6 % Final ??? MCV 10/20/2019 85.4 79.0 - 97.0 fL Final ??? MCH 10/20/2019 28.6 26.6 - 33.0 pg Final ??? MCHC 10/20/2019 33.5 31.5 - 35.7 g/dL Final ??? RDW 10/20/2019 13.7 12.3 - 15.4 % Final ??? RDW-SD 10/20/2019 43.1 37.0 - 54.0 fl Final ??? MPV 10/20/2019 11.8 6.0 - 12.0 fL Final ??? Platelets 10/20/2019 263 140 - 450 10*3/mm3 Final ??? Neutrophil % 10/20/2019 60.8 42.7 - 76.0 % Final ??? Lymphocyte % 10/20/2019 29.3 19.6 - 45.3 % Final ??? Monocyte % 10/20/2019 6.6 5.0 - 12.0 % Final ??? Eosinophil % 10/20/2019 1.6 0.3 - 6.2 % Final ??? Basophil % 10/20/2019 1.1 0.0 - 1.5 % Final ??? Immature Grans % 10/20/2019 0.6* 0.0 - 0.5 % Final ??? Neutrophils, Absolute 10/20/2019 3.84 1.70 - 7.00 10*3/mm3 Final ??? Lymphocytes, Absolute 10/20/2019 1.85 0.70 - 3.10 10*3/mm3 Final ??? Monocytes, Absolute 10/20/2019 0.42 0.10 - 0.90 10*3/mm3 Final ??? Eosinophils, Absolute 10/20/2019 0.10 0.00 - 0.40 10*3/mm3 Final ??? Basophils, Absolute 10/20/2019 0.07 0.00 - 0.20 10*3/mm3 Final ??? Immature Grans, Absolute 10/20/2019 0.04 0.00 - 0.05 10*3/mm3 Final ??? nRBC 10/20/2019 0.2 0.0 - 0.2 /100 WBC Final Office Visit on 10/20/2019 Component Date Value Ref Range Status ??? Hemoglobin A1C 10/20/2019 8.50* 4.80 - 5.60 % Final Assessment / Plan Gertrudis was seen today for follow-up. Diagnoses and all orders for this visit: Uncontrolled type 2 diabetes mellitus with hyperglycemia ([facility]) - POC Glucose Fingerstick - Empagliflozin (Jardiance) 25 MG tablet; Take 25 mg by mouth Daily. - SITagliptin (Januvia) 100 MG tablet; Take 1 tablet by mouth Daily. - glimepiride (Amaryl) 2 MG tablet; Take 1 tablet by mouth Daily Before Supper. Mixed hyperlipidemia Benign essential hypertension Diabetes Mellitus 2 is under poor control. -A1c 8.5, up from 6.8 last visit -she stopped glimepiride due to hypoglycemia. Was taking it before breakfast. -discussed our only options at this point are trying low dose glimepiride before dinner since that's a bigger meal or going on basal insulin -she is very hesitant to try insulin, wants to try glimepiride (2mg) before dinner first and if sheexperiences hypoglycemia will call to start basal insulin -resume glimepiride 2mg and take before dinner -continue jardiance to 25mg daily. -continue januvia [...] <180 2 hr postprandial 4. Microalbumin due 10/2019 5. Education performed during this visit: rn long term care diabetic complications discussed. , [...] up: Return in about 3 months (around 01/28/2020). Discussed the nature of the disease including, [...] Office Visit [facility] [address] [facility] [place] [address] Pj Ace MD [address] [facility] [address] [place] [address] documented as of this encounter Procedures Procedure Name Priority Date/Time Associated Diagnosis Comments POCT GLUCOSE FINGERSTICK Routine 10/28/2019 10:13 AM EDT Uncontrolled type 2 diabetes mellitus with hyperglycemia documented in this encounter Results * (ABNORMAL) POC Glucose Fingerstick (10/28/2019 10:13 AM EDT) Glucose 179(A) 70 - 130 mg/dL [facility] Blood 10/28/2019 10:1 3 AM EDT Roc Tracey PA-C POINT OF CARE TEST ORDERAB LES Final Result [facility]
[address] [place] [address], documented in this encounter Visit Diagnoses Diagnosis Uncontrolled type 2 diabetes mellitus with hyperglycemia- Primary Mixed hyperlipidemia Benign essential hypertension Essential hypertension, benign documented in this encounter Care Teams Machine Cloth Trimmer Relationship Specialty Start Date End Date Ev Augustin, VASILE [address] [place] [address] PCP - General Internal Medicine 04/12/18 08/18/21 documented as of this encounter
--- OUTSIDE RECORDS SUMMARY | 2024-02-20 09:11 | XMS_ITS | Encounter Summary ---
[facility] Address [address] [place] [address] Care Team Providers Care Heat Treat Supervisor Name Role Phone Ev Augustin APRN Primary Care Provider [phone] Reason for Visit * Health Education (Routine) - Closed Specialty Diagnoses / Procedures Referred By Yodit t Referred To Contact Nutrition Diagnoses Gastroparesis Diabetes mellitus type 2 in obese Slime Hammer APRN [facility] NUTRIT SVC [address] [place] [address] Phone: tel: fax: Referral ID Status Reason Start Date Expiration Date V isits Requested Visits Authorized [id number] Closed Specialty Services Required 06/01/2019 05/31/2020 1 1 Encounter Details Date Type Department Care Team (Latest Contact Info) Description 08/06/2019 9:00 AM EDT - 08/06/2019 11:59 PM EDT Hospital Encounter [facility] DIABETES ED [address] [place] [address] Discharge Disposition: Home or Self Care Social [...] mouth 2 (Two) Times a Day. 0 furosemide (LASIX) 20 MG tablet Take 1 tablet by mouth As Needed. albuterol sulfate HFA 108 (90 Base) MCG/ACT inhalerIndications: Cough Inhale 2 puffs Every 6 (Six) Hours As Needed for Wheezing or Shortness of Air. 1 inhaler 11 0 11/10/19 21 bisoprolol (ZEBeta) 5 MG tablet Take 5 mg by mouth Daily. 09/06/19 22 cyclobenzaprine (FLEXERIL) 10 MG tablet Take 10 mg by mouth 3 (Three) Times a Day As Needed for Muscle Spasms. 02/18/20 22 Desvenlafaxine Succinate ER (PRISTIQ) 25 MG tablet sustained-release 24 hourIndications:Rec urrent major depressive disorder, in partial remission Take 1 tablet by mouth Daily. 30 tablet 5 0 10/20/19 20 Empagliflozin (JARDIANCE) 25 MG tabletIndications:U ncontrolled type 2 diabetes mellitus with hyperglycemia, without long-term current use of insulin Take 25 mg by mouth Daily. 90 tablet 1 0 10/28/19 20 estradiol (ESTRACE VAGINAL) 0.1 MG/GM vaginal creamIndications:Va ginal atrophy Insert 2 g into the vagina 1 (One) Time Per Week. 42.5 g 5 0 11/10/19 21 glimepiride (AMARYL) 4 MG tabletIndications:U ncontrolled type 2 diabetes mellitus with hyperglycemia, without long-term current use of insulin Take 1 po qd before a meal 90 tablet 1 0 10/28/19 20 losartan (COZAAR) 100 MG tablet Take 100 mg by mouth Daily. 11/10/19 22 lubiprostone (AMITIZA) 24 MCG capsuleIndications: Chronic constipation Take 1 capsule by mouth 2 (Two) Times a Day With Meals. 180 capsule 1 9 10/20/19 20 NIFEdipine CC (ADALAT CC) 90 MG 24 hr tablet Take 60 mg by mouth Daily. 8 12/30/19 21 omeprazole (priLOSEC) 40 MG capsuleIndications: Chronic GERD Take 1 capsule by mouth Daily. 90 capsule 3 9 10/20/19 20 oxyCODONE-acetamino phen (PERCOCET) 5-325 MG per tablet Take 1 tablet by mouth Every 6 (Six) Hours As Needed. 10/20/19 20 pyridoxine (VITAMIN B-6) 100 MG tablet Take 100 mg by mouth Daily. 01/16/20 20 rOPINIRole (REQUIP) 1 MG tabletIndications:R LS (restless legs syndrome) Take 1 tablet by mouth Every Night. Take 1 hour before bedtime. 90 tablet 3 0 04/06/19 21 SITagliptin (JANUVIA) 100 MG tabletIndications:U ncontrolled type 2 diabetes mellitus with hyperglycemia, without long-term current use of insulin Take 1 tablet by mouth Daily. 90 tablet 1 0 10/28/19 20 topiramate (TOPAMAX) 50 MG tablet TAKE ONE TABLET BY MOUTH TWICE DAILY 180 tablet 6 10/20/19 20 traMADol (ULTRAM) 50 MG tabletIndications:M eningeal adhesions,Postlamin ectomy syndrome of lumbar region,Herniated lumbar intervertebral disc TAKE 1 TABLET PO TID PRN FOR SEVERE BREAKTHROUGH PAIN 270 tablet 9 10/20/19 20 traZODone (DESYREL) 50 MG tabletIndications:P rimary insomnia Take 1 to 2 tabs po hs prn 180 tablet 3 0 07/17/19 21 vitamin B-6 (PYRIDOXINE) 100 MG tablet pyridoxine (vitamin B6) 11/10/19 21 documented as of this encounter Consult Notes * Theresa Carrasco, RD - 08/06/2019 10:06 AM EDT Adult Outpatient Nutrition Assessment Patient Name: Gertrudis Gonzalez Date of : 1955 Assessment Date: 08/06/2019 Comments: Patient attended scheduled diabetes education class. Please see media tab for assessment and notes if you use [employer]. If you are not an [employer] user a copy of patient's assessment and notes willbe sent per routine. Thank you. Telephone nutrition consult, 60 minutes. This medical referred consult was provided as a telephone call, tele-health or e-visit, as patient is unable to attend an in-of fice appointment due to the COVID-19 crisis. Consent for treatment was given verbally. Electronically signed by: Theresa Carrasco RD 08/06/19 10:06 documented in this encounter Plan of Treatment Upcoming Encounters Date Type Department Care Team (Late st Contact Info) Description 03/13/2024 2:45 PM EST Office Visit [facility] CARDIOLOG[facility] [address] [place] [address] [place] [address] Pj Ace MD [address] [facility] [address] [place] [address] Scheduled Referrals Name Type Priority Associated Diagnoses Order Schedule Ambulatory Referral to Nutrition Services Outpatient Referral Routine Gastroparesis Diabetes mellitus type 2 in obese Ordered: 06/01/2019 documented as of this encounter Visit Diagnoses Not on filedocumented in this encounter Care Teams Heat Treat Supervisor Relationship Specialty Start Date End Date Ev Augustin APRN [address] [place] [address] PCP - General Internal Medicine 04/12/18 08/18/21 documented as of this encounter
--- OUTSIDE RECORDS SUMMARY | 2024-02-20 09:11 | XMS_ITS | Encounter Summary ---
[facility] Organization [facility] Address [address] [place] [address] Care Team Providers Care Operations Intelligence Name Role Phone Alex Davis MD Primary Care Provider [phone] Reason for Visit * Reason Onset Date Comments CONCERNS 05/27/2019 Encounter Details Date Type Department Care Team ([facility] st Contact Info) Description 05/27/2019 Telephone [facility] INTERNAL MEDICINE [address] [place] [address] Ev Augustin, TRACTOR ENGINE ASSEMBLER [address] [place] [address] CONCERNS Social History Tobacco Use Types Packs/Day Years [...] Telephone Encounter - Xiao Britton MA - 05/27/2019 12:27 PM EST Spoke with pt, made appt for this evening with airborne operations. * Telephone Encounter - Mat Dick RegSched Rep - 05/27/2019 11:08 AM EST Pt called and stated that she has foul smelling urine, milky white, and burning while urinating. Ptstates that since catheter was removed her symptoms are getting worse. Pt states that she is urinating a lot in small amounts and has stated that she is having discharge and itching like a yeast infection. Pt asks if she should start taking the ciprofloxacn that she was taken off of from negative urine test. Pt callback: [phone] Please advise. documented in this encounter Plan of Treatment Upcoming Encounters Date Type Department Care Team (Late st Contact Info) Description 03/13/2024 2:45 PM EST Office Visit [facility] CARDIOLOGY [address] [facility] [address] [place] [address] Pj Ace MD [address] [place] [address] documented as of this encounter Visit Diagnoses Not on filedocumented in this encounter Additional Health Concerns Infection Onset Date Last Indicated Resolved Time COVID Screen (preop/placement) 10/15/2020 10/15/2020 10/15/2020 7:48 PM EDT documented as of this encounter Care Teams Operations Intelligence Relationship Specialty Start Date End Date Alex Davis MD [address] [place] [address] PCP - General Family Medicine 09/05/21 documented as of this encounter
--- OUTSIDE RECORDS SUMMARY | 2024-02-20 09:11 | XMS_ITS | Encounter Summary ---
[facility] [address] [place] [address] Care Team Providers Care Aeronautical Test Engineer Name Role Phone Ev Augustin APRN Primary Care Provider [phone] Encounter Details Date Type Department Care Team (Late st Contact Info) Description 04/28/2019 Telephone [facility] INTERNAL MEDICINE [address] [place] [address] Ev Augustin APRN [facility] [place] [address] Social History Tobacco Use Types Packs/Day Years Used Date Smoking Tobacco: Never Smokeless Tobacco: Never Alcohol Use Standard Drinks/Week Comments No 0 (1 standard drink = 0.6 oz pur e alcohol) Comments No Sex and Gender Information Value Date Recorded Sex Assigned at Not on file Legal Sex Female 10:25 AM EDT Gender Identity Not on file Sexual Orientation Not on file documented as of this encounter Miscellaneous Notes * Telephone Encounter - Mitzi Colón MA - 04/28/2019 3:11 PM EST Called pt and she is aware * Telephone Encounter - Mitzi Colón MA - 04/28/2019 3:11 PM EST ----- Message from Ev Augustin APRN sent at 04/24/2019 2:27 PM EST ----- Please contact patient regarding results. Electrolytes liver kidney function ok, stable. Cont med follow up endo for diabetes. CBC/blood count: no anemia. Blood count high need to drink more water. otherwise looks good. Need heart healthy diet and wt loss. Thanks. documented in this encounter Plan of Treatment Upcoming Encounters Date Type Department Care Team (Late st Contact Info) Description 03/13/2024 2:45 PM EST Office Visit [facility] CARDIOLOGY [address] [place] [address] [place] [address] Pj Ace MD [address] [facility] [address] [address] documented as of this encounter Visit Diagnoses Not on filedocumented in this encounter Care Teams Aeronautical Test Engineer Relationship Specialty Start Date End Date Ev Augustin APRN [address] [place] [address] PCP - General Internal Medicine 04/12/18 08/18/21 documented as of this encounter
--- OUTSIDE RECORDS SUMMARY | 2024-02-20 09:11 | XMS_ITS | Encounter Summary ---
[facility] [address] [place] [address] Care Team Providers Care Bisque Grader Name Role Phone Ev Augustin ANY COMMODITY BUYER Primary Care Provider [phone] Encounter Details Date Type Department Care Team (Late st Contact Info) Description 06/11/2019 Telephone [facility] INTERNAL MEDICINE [address] [place] [address] Ev Augustin, ANY COMMODITY BUYER [address] [place], [place] [id number] Social History Tobacco Use Types Packs/Day Years [...] encounter Miscellaneous Notes * Telephone Encounter - Theresa Robert RegSched Rep - 06/11/2019 9:23 AM EDT PT (CONSTNATINO DALY) HAS REQUESTED TO BE DISMISSED FROM [facility] AND OCCUPATIONAL THERAPY, BUTWANTS TO CONTINUE WITH PHYSICAL THERAPY, THIS CALL IS JUST A NOTIFICATION [facility]E FROM [facility] WILL BE FAXING THE ORDER FOR OUR RECORDS, NO CALL BACK NEEDED documented in this encounter Plan of Treatment Upcoming Encounters Date Type Department Care Team (Late st Contact Info) Description 03/13/2024 2:45 PM EST Office Visit [facility] CARDIOLOGY [address] [place] [address] [address] [place] [address] Pj Ace MD [address] [facility] [address] [place] [address] documented as of this encounter Visit Diagnoses Not on filedocumented in this encounter Care Teams Bisque Grader Relationship Specialty Start Date End Date Ev Augustin APRN [address] [place] [address] PCP - General Internal Medicine 04/12/18 08/18/21 documented as of this encounter
--- OUTSIDE RECORDS SUMMARY | 2024-02-20 09:11 | XMS_ITS | Encounter Summary ---
[facility] Organization [facility] Address [address] [place] [address] Care Team Providers Care Help Desk Engineer Name Role Phone Ev Augustin APRN Primary Care Provider [phone] Encounter Details Date Type Department Care Team (Late st Contact Info) Description 07/03/2019 10:00 AM EDT Telemedicine [facility] HEMATOLOGY & ONCOLOGY [address] [phone] Nelly Clayton MD [address] [facility] [address] [place] [address] Erythrocytosis (Primary Dx); Abnormal finding of blood chemistry, unspecified Social History Tobacco Use Types Packs/Day Years [...] as of this encounter Progress Notes * Nelly Clayton MD - 07/03/2019 10:00 AM EDT Visit conducted via telephone. Start time 10:04. Finish 10:14. PROBLEM LIST: 1. Elevated ferritin 2. NAFLD 3. Gastroparesis 4. DM2 Subjective CHIEF COMPLAINT: elevated ferritin and hgb HISTORY OF PRESENT ILLNESS: Gertrudis Daly returns for follow-up. She has had some back pain related to a surgery in April. She had a schwannoma removed from her spinal column. She still has issues with bowel and bladder. She is doing physical therapy and says that her surgeon thinks that she is doing extremely well. She has not had any infections, fevers, or shortness of breath. She denies any itching of the skin,headaches, or vision changes. Past Medical History, Past Surgical History, Social [...] ??? Pioglitazone Rash ??? Spironolactone Rash Objective LMP (LMP Unknown) Performance Status: 0 Neuro: alert and oriented Psych: mood and affect appropriate RECENT LABS: Results for GERTRUDIS DALY ( ) as of 12/19/2018 12:08 Ref. Range 11/28/2018 13:50 Iron Latest Ref Range: 37 - 145 mcg/dL 85 Ferritin Latest Ref Range: 13.00 - 150.00 ng/mL 235.10 (H) Iron Saturation Latest Ref Range: 20 - 50 % 21 Transferrin Latest Ref Range: 200 - 360 mg/dL 275 TIBC Latest Ref Range: 298 - 536 mcg/dL 410 Results for GERTRUDIS DALY ( ) as of 12/19/2018 12:08 Ref. Range 11/28/2018 13:50 WBC Latest Ref Range: 3.40 - 10.80 10*3/mm3 6.40 RBC Latest Ref Range: 3.77 - 5.28 10*6/mm3 5.46 (H) Hemoglobin Latest Ref Range: 12.0 - 15.9 g/dL 15.7 Hematocrit Latest Ref Range: 34.0 - 46.6 % 49.1 (H) RDW Latest Ref Range: 12.3 - 15.4 % 13.8 MCV Latest Ref Range: 79.0 - 97.0 fL 90.0 MCH Latest Ref Range: 26.6 - 33.0 pg 28.8 MCHC Latest Ref Range: 31.5 - 35.7 g/dL 32.0 MPV Latest Ref Range: 6.0 - 12.0 fL 8.0 Platelets Latest Ref Range: 140 - 450 10*3/mm3 287 Neutrophil Rel % Latest Ref Range: 42.7 - 76.0 % 64.2 Lymphocyte Rel % Latest Ref Range: 19.6 - 45.3 % 31.7 Monocyte Rel % Latest Ref Range: 5.0 - 12.0 % 4.1 (L) Assessment/Plan Gertrudis Daly is a 63 y.o. year old female with elevated ferritin and erythrocytosis. Elevated ferritin: Mild ferritin elevation on recent blood work. There is no urgency to recheck this at this point. Erythrocytosis: No symptoms of increasing erythrocytosis. We will plan to recheck labs in September. Follow-up in 3 months. Nelly Clayton MD [facility] Hematology and Oncology 07/03/2019 CC: documented in this encounter Plan of Treatment Upcoming Encounters Date Type Department Care Team (Late st Contact Info) Description 03/13/2024 2:45 PM EST Office Visit [facility] CARDIOLOGY [address] [place] [address] Pj Ace MD [address] [facility] [address] [place] [address] documented as of this encounter Results * (ABNORMAL) Iron Profile (11/21/2019 10:01 AM EDT) Iron 72 37 - 145 mcg/dL 11/21/2019 11:01 AM EDT [facility] Iron Saturation (TSAT) 18(L) 20 - 50 % 11/21/2019 11:01 AM EDT [facility] Transferrin 272 200 - 360 mg/dL 11/21/2019 11:01 AM EDT [facility] TIBC 405 298 - 536 mcg/dL 11/21/2019 11:01 AM EDT [facility] Blood Venipuncture / Unknown 11/21/2019 10:01 AM EDT 11/21/2019 10:01 AM EDT us Nelly Clayton MD LAB BLOOD ORDERABLES Final Resul t Performing Organization Address City/[facility] [place] [facility]/ZIP Co de Phone Number [facility]
[address] [place] [address], * Ferritin (11/21/2019 10:01 AM EDT) Ferritin 124.70 13.00 - 150.00 ng/mL 11/21/2019 10:56 AM EDT [facility] Blood Venipuncture / Unknown 11/21/2019 10:01 AM EDT 11/21/2019 10:01 AM EDT Narrative [facility] - 11/21/2019 10:56 AM EDT Results may be falsely decreased if patient taking Biotin. us Nelly Clayton MD LAB BLOOD ORDERABLES Final Resul t Performing Organization Address City/[facility] [place] [facility] Co de Phone Number [facility]
[address] [place] [address], documented in this encounter Visit Diagnoses Diagnosis Erythrocytosis- Primary Polycythemia, secondary Abnormal finding of blood chemistry, unspecified documented in this encounter Care Teams Help Desk Engineer Relationship Specialty Start Date End Date Ev Augustin, PERMASTONE INSTALLER [address] [place] [address] PCP - General Internal Medicine 04/12/18 08/18/21 documented as of this encounter
--- OUTSIDE RECORDS SUMMARY | 2024-02-20 09:11 | XMS_ITS | Encounter Summary ---
Author Organization [facility] Address [address] [place] [address] Care Team Providers Care Oyster Tonger Name Role Phone Alex Davis MD Primary Care Provider [phone] Reason for Visit * Reason Onset Date Comments VERBAL ORDER 08/14/2019 Encounter Details Date Type Department Care Team (Late st Contact Info) Description 08/14/2019 Telephone [facility] INTERNAL MEDICINE [address] [place] [address] Ev Augustin, MATHEMATICS TECHNICIAN [address] [place] [address] VERBAL ORDER Social History Tobacco Use Types Packs/Day Years [...] Telephone Encounter - Mitzi Colón MA - 08/15/2019 9:59 AM EDT Called pa and left detailed message, with office number to call back * Telephone Encounter - Ev Augustin APRN - 08/15/2019 9:51 AM EDT Please return call to ; ok for HH to be on hold for 2 weeks due to covid 19 pandemic. * Telephone Encounter - Elvira England - 08/14/2019 11:48 AM EDT PA FROM [employer] [facility] PT HAS BEEN ON HOLD WITH PT SERVICES DUE TO COVID-19 PT IS REQUESTING TO BE ON HOLD FOR TWO MORE WEEKS PA IS REQUESTING A VERBAL ORDER FOR THIS PLEASE CONTACT PA AT: [phone] documented in this encounter Plan of Treatment Upcoming Encounters Date Type Department Care Team (Late st Contact Info) Description 03/13/2024 2:45 PM EST Office Visit [facility] CARDIOLOGY [address] [place] [address] Pj Ace MD [address] [address] documented as of this encounter Visit Diagnoses Not on filedocumented in this encounter Additional Health Concerns Infection Onset Date Last Indicated Resolved Time COVID Screen (preop/placement) 10/15/2020 10/15/2020 10/15/2020 7:48 PM EDT documented as of this encounter Care Teams Oyster Tonger Relationship Specialty Start Date End Date Alex Davis MD [address] [place] [address] PCP - General Family Medicine 09/05/21 documented as of this encounter
--- OUTSIDE RECORDS SUMMARY | 2024-02-20 09:11 | XMS_ITS | Encounter Summary ---
Author Organization [facility] Address [address] [place] [address] Care Team Providers Care Master Pilot Name Role Phone Ev Augustin APRN Primary Care Provider [phone] Reason for Visit * Reason Comments Blood in Urine Has a goodman in, hi turia better today than yesterday Encounter Details Date Type Department Care Team (Late st Contact Info) Description 05/16/2019 12:00 PM EST Office Visit [facility] INTERNAL MEDICINE [address] [place] [address] Mirna Forde APRN [address] [place] [address] Acute cystitis with hematuria (Primary Dx); Glucose found in urine on examination; Hematuria, unspecified type Social History Tobacco Use Types Packs/Day Years [...] Sign Reading Time Taken Comments Blood Pressure 122/68 05/16/2019 11:39 AM EST Pulse 81 05/16/2019 11:39 AM EST Temperature - - Respiratory Rate - - Oxygen Saturation 98% 05/16/2019 11:39 AM EST Inhaled Oxygen Concentration - - Weight 82.6 kg (182 lb) 05/16/2019 11:39 AM EST Height 154.9 cm (5' 1 ) 05/16/2019 11:39 AM EST Body Mass Index 34.39 05/16/2019 11:39 AM EST documented in this encounter Progress Notes * Eula MirnaVASILE javed - 05/16/2019 12:00 PM EST Chief Complaint Patient presents with ??? Blood in Urine Has a goodman in, hematuria better today than yesterday History of Present Illness Gertrudis [place] is a 63 y.o. female who presents today for UTI. Urinary Tract Infection This is a recurrent problem. Episode onset: 2 days ago. Episode frequency: Patient recently treated1 week ago for E. Coli UTI with resistance to Bactrim, antibiotic switched to Macrobid, patient has1 day left to complete. There has been no fever. Associated symptoms include flank pain and hematuria (first noticed 2 days ago). Pertinent negatives include no chills, discharge, frequency, hesitancy, nausea, sweats, urgency or vomiting. Associated symptoms comments: (+) Abdominal pain, bladder spasms. She has tried antibiotics and increased fluids for the symptoms. Her past medical history is significant for catheterization. Currently with urinary goodman catheter in place due to recent surgical procedure and anuria with prior removal of catheter. She has a follow- up apt with urology on 05/23/19 for catheter replacement. [facility] The following portions of the patient's history were reviewed and updated as appropriate: allergies, current medications, past family history, past medical history, past social history, past surgicalhistory and problem list. Social History Tobacco Use ??? Smoking status: Never Smoker ??? Smokeless tobacco: Never Used Substance Use Topics ??? Alcohol use: No Past Medical History: Diagnosis Date ??? Anxiety [...] type 2 ??? Kidney failure Maternal Grandmother Allergies Allergen Reactions ??? Iain Inhibitors Cough ??? Amlodipine Diarrhea ??? Beta Adrenergic Blockers Rash ??? Cyclobenzaprine Rash ??? Hydrochlorothiazide Rash ??? Hyzaar [Losartan Potassium-Hctz] Rash ??? Latex Rash ??? Losartan Rash ??? Metformin Rash ??? Penicillins Rash ??? Pioglitazone Rash ??? Spironolactone Rash Current Outpatient Medications: ??? albuterol sulfate HFA 108 (90 Base) MCG/ACT inhaler, Inhale 2 puffs Every 6 (Six) Hours As Needed for Wheezing or Shortness of Air., Disp: 1 inhaler, Rfl: 11 ??? bisoprolol (ZEBeta) 5 MG tablet, Take 5 mg by mouth Daily., Disp: , Rfl: ??? Desvenlafaxine Succinate ER (PRISTIQ) 25 MG tablet sustained-release 24 hour, Take 1 tablet by mouth Daily., Disp: 30 tablet, Rfl: 5 ??? Empagliflozin (JARDIANCE) 25 MG tablet, Take 25 mg by mouth Daily., Disp: 90 tablet, Rfl: 1 ??? estradiol (ESTRACE VAGINAL) 0.1 MG/GM vaginal cream, Insert 2 g into the vagina 1 (One) Time Per Week., Disp: 42.5 g, Rfl: 5 ??? furosemide (LASIX) 20 MG tablet, Take 20 mg by mouth 2 (Two) Times a Day., Disp: , Rfl: ??? glimepiride (AMARYL) 4 MG tablet, Take 1 po qd before a meal, Disp: 90 tablet, Rfl: 1 ??? Liniments (SALONPAS) pads, Apply topically. prn, Disp: , Rfl: ??? losartan (COZAAR) 100 MG tablet, Take 100 mg by mouth Daily., Disp: , Rfl: ??? lubiprostone (AMITIZA) 24 MCG capsule, Take 1 capsule by mouth 2 (Two) Times a Day With Meals.,Disp: 180 capsule, Rfl: 1 ??? NIFEdipine CC (ADALAT CC) 90 MG 24 hr tablet, Take 60 mg by mouth Daily., Disp: , Rfl: ??? nitrofurantoin, macrocrystal-monohydrate, (MACROBID) 100 MG capsule, Take 1 capsule by mouth Every 12 (Twelve) Hours for 7 days., Disp: 14 capsule, Rfl: 0 ??? omeprazole (priLOSEC) 40 MG capsule, Take 1 capsule by mouth Daily., Disp: 90 capsule, Rfl: 3 ??? rOPINIRole (REQUIP) 1 MG tablet, Take 1 tablet by mouth Every Night. Take 1 hour before bedtime., Disp: 90 tablet, Rfl: 3 ??? SITagliptin (JANUVIA) 100 MG tablet, Take 1 tablet by mouth Daily., Disp: 90 tablet, Rfl: 1 ??? sulfamethoxazole-trimethoprim (BACTRIM DS,SEPTRA DS) 800-160 MG per tablet, Take 1 tablet by mouth 2 (Two) Times a Day. for 7 days, Disp: , Rfl: ??? topiramate (TOPAMAX) 50 MG tablet, TAKE ONE TABLET BY MOUTH TWICE DAILY (Patient taking differently: TAKE ONE TABLET BY MOUTH as needed), Disp: 180 tablet, Rfl: 0 ??? traMADol (ULTRAM) 50 MG tablet, TAKE 1 TABLET PO TID PRN FOR SEVERE BREAKTHROUGH PAIN, Disp: 270 tablet, Rfl: 0 ??? traZODone (DESYREL) 50 MG tablet, Take 1 to 2 tabs po hs prn, Disp: 180 tablet, Rfl: 3 ??? ciprofloxacin (CIPRO) 500 MG tablet, Take 1 tablet by mouth 2 (Two) Times a Day for 10 days., Disp: 20 tablet, Rfl: 0 Review of Systems Review of Systems Constitutional: Negative for chills, diaphoresis, fatigue and fever. Respiratory: Negative for cough and shortness of breath. Cardiovascular: Negative for chest pain and palpitations. Gastrointestinal: Negative for abdominal distention, abdominal pain, diarrhea, nausea and vomiting. Genitourinary: Positive for dysuria, flank pain, hematuria (first noticed 2 days ago) and pelvic pain. Negative for decreased urine volume, difficulty urinating, frequency, hesitancy and urgency. Musculoskeletal: Negative for myalgias. Skin: Negative for color change and rash. Neurological: Negative for dizziness, light-headedness and headaches. Psychiatric/Behavioral: Negative for confusion and sleep disturbance. Vitals: Vitals: 05/16/19 1139 BP: 122/68 Pulse: 81 SpO2: 98% Weight: 82.6 kg (182 lb) Height: 154.9 cm (61 ) PainSc: 0-No pain Physical Exam Physical Exam Constitutional: She is oriented to person, place, and time. Vital signs are normal. She appears well-developed and well-nourished. Cardiovascular: Normal rate, regular rhythm and normal heart sounds. Pulmonary/Chest: Effort normal and breath sounds normal. She has no decreased breath sounds. She has no wheezes. She has no rhonchi. She has no rales. Abdominal: Soft. Normal appearance and bowel sounds are normal. There is tenderness in the suprapubic area. There is CVA tenderness. Neurological: She is alert and oriented to person, place, and time. Skin: Skin is warm and dry. Psychiatric: She has a normal mood and affect. Her behavior is normal. Nursing note and vitals reviewed. Labs Results for orders placed or performed in visit on 05/16/19 POC Glucose Result Value Ref Range Glucose 109 70 - 130 mg/dL POC Urinalysis Dipstick, Automated Result Value Ref Range Color Kenia Yellow, Straw, Dark Yellow, Kenia Clarity, UA Clear Clear Specific Wharton 1.015 1.005 - 1.030 pH, Urine 7.0 5.0 - 8.0 Leukocytes Negative Negative Nitrite, UA Negative Negative Protein, POC Trace (A) Negative mg/dL Glucose, UA 3+ (A) Negative, 1000 mg/dL (3+) mg/dL Ketones, UA Negative Negative Urobilinogen, UA Normal Normal Bilirubin Negative Negative Blood, UA 3+ (A) Negative Assessment/Plan Gertrudis was seen today for blood in urine. Diagnoses and all orders for this visit: Acute cystitis with hematuria - ciprofloxacin (CIPRO) 500 MG tablet; Take 1 tablet by mouth 2 (Two) Times a Day for 10 days. Glucose found in urine on examination - POC Glucose Hematuria, unspecified type - Urine Culture - Urine, Urine, Catheter; Future - POC Urinalysis Dipstick, Automated Will notify of urine culture results when received and treat accordingly. Switched antibiotics fromMacrobid to Ciprofloxacin as prescribed and will continue to treat empirically given presenting symptoms and lab results in office Patient advised in adequate water intake, avoidance of excessive caff eine, and use of Tylenol/ibuprofen as needed. Advised patient to follow-up with urology for new, worsening, or persistent symptoms. Plan of care reviewed with patient at conclusion of today's visit. Patient education was provided regarding diagnosis, management, and prescribed or recommended OTC medications. Patient verbalized understanding and agreement with plan of care. Follow-Up Return if symptoms worsen or fail to improve. Electronically Signed By: Mirna Forde APRN EMR Dragon/Slat Basket Maker Disclaimer: Much of this encounter note is an electronic gift officer/translation of spoken language to printed text. The electronic translation of spoken language may permit erroneous, or at times, nonsensicalwords or phrases to be inadvertently transcribed. Although I have reviewed the note for such errors, some may still exist. documented in this encounter Plan of Treatment Upcoming Encounters Date Type Department Care Team (Late st Contact Info) Description 03/13/2024 2:45 PM EST Office Visit [facility] CARDIOLOGY [address] [place] [address] [place] [address] Pj Ace MD [address] [place] [address] documented as of this encounter Procedures Procedure Name Priority Date/Time Associated Diagnosis Comments URINE CULTURE Routine 05/16/2019 2:40 PM EST Hematuria, unspecified type POCT URINALYSIS DIPSTICK, AUTOMATED Routine 05/16/2019 1:21 PM EST Hematuria, unspecified type POCT GLUCOSE FINGERSTICK Routine 05/16/2019 12:38 PM EST Glucose found in urine on examination documented in this encounter Results * Urine Culture - Urine, Urine, Catheter (05/16/2019 2:40 PM EST) Pathologist [facility] Urine Culture No growth LUIS ALBERTO 05/18/2019 3:49 AM EST [facility] Urine Urine specimen obtained via straight catheter / Unknown Collection / Unknown 05/16/2019 2:40 PM EST 05/16/2019 2:40 PM EST Mirna Forde APRN MICROBIOLOGY - GENERAL ORDERAB LES Final Result [facility]
[address] [place] [address], * (ABNORMAL) POC Urinalysis Dipstick, Automated (05/16/2019 1:21 PM EST) Color Kenia Yellow, Straw, Dark Yellow, Kenia [facility] Clarity, UA Clear Clear [facility] Specific Wharton 1.015 1.005 - 1.030 [facility] pH, Urine 7.0 5.0 - 8.0 [facility] Leukocytes Negative Negative [facility] Nitrite, UA Negative Negative [facility] Protein, POC Trace(A) Negative mg/dL [facility] Glucose, UA 3+(A) Negative, 1000 mg/dL (3+) mg/dL [facility] Ketones, UA Negative Negative [facility] Urobilinogen, UA Normal Normal [facility] Bilirubin Negative Negative [facility] Blood, UA 3+(A) Negative [facility] Urine 05/16/2019 1:21 PM EST Mirna Forde APRN POINT OF CARE TEST ORDERABLES Final Result Performing Organization Address [facility] Co de Phone Number [facility]
[address] [place] [address], [place] [phone] * POC Glucose (05/16/2019 12:38 PM EST) Glucose 109 70 - 130 mg/dL [facility] Blood 05/16/2019 12:3 8 PM EST Mirna Forde APRN POINT OF CARE TEST ORDERABLES Final Result Performing Organization Address [facility] Co de Phone Number [facility]
[address] [place] [id number], [place] [phone] documented in this encounter Visit Diagnoses Diagnosis Acute cystitis with hematuria- Primary Glucose found in urine on examination Glycosuria Hematuria, unspecified type documented in this encounter Care Teams Master Pilot Relationship Specialty Start Date End Date Ev Augustin APRN [address] [place] [address] PCP - General Internal Medicine 04/12/18 08/18/21 documented as of this encounter
--- OUTSIDE RECORDS SUMMARY | 2024-02-20 09:11 | XMS_ITS | Encounter Summary ---
[facility] Address [address] [place] [address] Care Team Providers Care Science Job Titles Name Role Phone Ev Augustin APRN Primary Care Provider [phone] Reason for Referral * Diagnostic Imaging (Routine) - Closed Specialty Diagnoses / Procedures Referred By Contac t Referred To Contact Radiology Diagnoses Encounter for screening mammogram for malignant neoplasm of breast Procedures Mammo Screening Digital Tomosynthesis Bilateral With Ev Amaro APRN [address] [place] [address] Phone: tel: fax: [facility] [address] [place] [address] Phone: tel: Referral ID Status Reason Start Date Expiration Date Visits Re quested Visits Authorized [id number] Closed 01/16/2020 01/15/2021 1 1 Reason for Visit * Diagnostic Imaging (Routine) - Closed Specialty Diagnoses / Procedures Referred By Contac t Referred To Contact Radiology Diagnoses Encounter for screening mammogram for malignant neoplasm of breast Procedures Mammo Screening Digital Tomosynthesis Bilateral With Ev Amaro APRN [address] [place] [address] Phone: tel: fax: [facility] [address] [place] [address] Phone: tel: Referral ID Status Reason Start Date Expiration Date Visits Re quested Visits Authorized [id number] Closed 01/16/2020 01/15/2021 1 1 Encounter Details Date Type Department Care Team (Latest Contact Info) Description 01/21/2020 10:00 AM EDT - 01/21/2020 11:59 PM EDT Hospital Encounter [facility] [address] [place] [phone] Ev Augustin, CHRISTMAS TREE FARMER [address] [phone] Encounter for screening mammogram for malignant neoplasm of breast Discharge Disposition: Home or Self Care Social [...] by mouth Daily. 90 tablet 1 0 01/26/20 20 estradiol (ESTRACE VAGINAL) 0.1 MG/GM vaginal creamIndications:Va ginal atrophy Insert 2 g into the vagina 1 (One) Time Per Week. 42.5 g 5 0 11/10/19 21 glimepiride (Amaryl) 2 MG tabletIndications:U ncontrolled type 2 diabetes mellitus with hyperglycemia Take 1 tablet by mouth Daily Before Supper. 90 tablet 1 0 01/26/20 20 losartan (COZAAR) 100 MG tablet Take [...] by mouth Daily. 90 tablet 1 0 01/26/20 20 topiramate (TOPAMAX) 50 MG tabletIndications:C hronic migraine [...] EST Office Visit [facility] [address] [place] [address] [place] [address] Pj Ace MD [address] [facility] [address] [place] [address] documented as of this encounter Procedures Procedure Name Priority Date/Time Associated Diagnosis Comments MAMMO SCREENING DIGITAL TOMOSYNTHESIS BILATERAL W CAD Routine 01/21/2020 10:44 AM EDT Encounter for screening mammogram for malignant neoplasm of breast documented in this encounter Results * (ABNORMAL) Mammo Screening Digital Tomosynthesis Bilateral With CAD (01/21/2020 10:44 AM EDT) Anatomical Region Laterality Modality Breast N/A Mammography 01/24/2020 1:34 PM EDT Impressions 01/24/2020 1:42 PM EDT 1. Possible area of architectural distortion the right subareolar region. 2. Benign left mammogram. RECOMMENDATION: Right CC focal compression imaging with tomosynthesis and the nipple in profile. BI-RADS CATEGORY 0, INCOMPLETE: ??NEED ADDITIONAL IMAGING EVALUATION. ?? She will be contacted by our office to schedule an appointment for the additional studies. ?? CAD was utilized. The standard false-negative rate of mammography is between 10% and 25%. Complex patterns or increased breast density will markedly elevate the false-negative rate of mammography. ?? A letter, in lay terminology, with the results of this exam will be mailed to the patient. Physician Order Diagnostic Mammogram and/or Ultrasound. Diagnosis: Abnormal Screening Mammogram This report was finalized on 01/24/2020 1:[address] Jaylin Cheney MD. Narrative 01/24/2020 1:42 PM EDT BILATERAL SCREENING MAMMOGRAM WITH TOMOSYNTHESIS: HISTORY: The patient has no personal or significant family history of breast cancer and no new breast complaints at the time of screening mammography. TECHNIQUE: Bilateral CC and MLO low dose, full field digital mammographic images were obtained with 2-D acquisitions and tomosynthesis. COMPARISON: ??01/14/2019, 01/03/2019, 10/10/2012, and 03/22/2012 FINDINGS: ??There are scattered areas of fibroglandular density. ?? There is a possible area of architectural distortion the right subareolar region noted on CC tomosynthesis imaging. Additional mammographic imaging is recommended. The remaining bilateral fibroglandular pattern is stable. There are scattered bilateral calcifications. No new or suspicious findings are noted in the left breast. us Ev Augustin CHRISTMAS TREE FARMER IMG MAMMOGRAPHY ORDERABLE S Final Result documented in this encounter Visit Diagnoses Diagnosis Encounter for screening mammogram for malignant neoplasm of breast documented in this encounter Care Teams Science Job Titles Relationship Specialty Start Date End Date Ev Augustin, CHRISTMAS TREE FARMER [address] [place] [address] PCP - General Internal Medicine 04/12/18 08/18/21 documented as of this encounter
--- OUTSIDE RECORDS SUMMARY | 2024-02-20 09:11 | XMS_ITS | Encounter Summary ---
[facility] Organization [facility] Address [address] [place] [id number] Care Team Providers Care Assistant Press Operator Offset Name Role Phone Ev Augustin APRN Primary Care Provider [phone] Reason for Referral * Health Education (Routine) - Closed Specialty Diagnoses / Procedures Referred By Contac t Referred To Contact Nutrition Diagnoses Gastroparesis Diabetes mellitus type 2 in obese Slime Hammer APRN [facility] [address] [facility] [address] [place] [address] Phone: tel: fax: Referral ID Status Reason Start Date Expiration Date V isits Requested Visits Authorized [id number] Closed Specialty Services Required 06/01/2019 05/31/2020 1 1 Reason for Visit * Reason Comments Follow-up Gastroparesis Encounter Details Date Type Department Care Team (Latest Contact Info) Description 05/26/2019 9:20 AM EST Office Visit [facility] [address] [place] [address] Slime Hammer APRN Gastroparesis (Primary Dx); Chronic constipation; LFT elevation; Diabetes mellitus type 2 in obese Social History Tobacco Use Types Packs/Day Years [...] Reading Time Taken Comments Blood Pressure 120/72 05/26/2019 9:43 AM EST Pulse 84 05/26/2019 9:43 AM EST Temperature 36.9 ??C (98.5 ??F) 05/26/2019 9:43 AM ES T Respiratory Rate - - Oxygen Saturation 90% 05/26/2019 9:43 AM EST Inhaled Oxygen Concentration - - Weight 79.8 kg (176 lb) 05/26/2019 9:43 AM EST Height 154.9 cm (5' 1 ) 05/26/2019 9:43 AM EST Body Mass Index 33.25 05/26/2019 9:43 AM EST documented in this encounter Patient Instructions * Patient Instructions* Slime Hammer APRN - 05/26/2019 9:20 AM EST ?? Try OTC (over the counter) Tricia root tablets 3 times a day as needed for nausea. Be proactive.Take it as soon as you feel queezy and not wait until you are feeling really sick to your stomach ?? Eat 5 to 6 small meals a day instead of 3 meals a day. Try to avoid silva, greasy, and processed food. ?? When nauseous, try to eat more bland foods: applesauce, bananas, crackers, dry toast, rice cereal/cakes, yogurt, and tricia marianne. documented in this encounter Progress Notes * lSime Hammer APRN - 05/26/2019 9:20 AM EST Images from the original note were not included. GASTROENTEROLOGY OUTPATIENT ESTABLISHED PATIENT NOTE Patient: GERTRUDIS DALY : 1955 Date of Service: 05/26/2019 CC: Follow-up (Gastroparesis) Assessment/Plan ASSESSMENT & PLANS Gastroparesis Diabetes mellitus type 2 in obese (CMS/HCC) - Ambulatory Referral to Nutrition Services for education on gastroparesis and DM diets ?? Start OTC tricia root po TID as previously recommended ?? Follow up with Dr Lyon from [facility] Chronic constipation ?? Continue Amitiza and Colace daily and PRN Magnesium Citrate LFT elevation r/t NAFLD. Improving - Ambulatory Referral to Nutrition Services Follow Up:Return if symptoms worsen or fail to improve, for Recheck. DISCUSSION: The above plan was delineated in details with patient and all questions and concerns were answered. Patient is also given contact information. Patient is to return as scheduled or sooner if new problems arise. Subjective SUBJECTIVE History of Present Illness Ms. Gertrudis Daly is a 63 y.o. female who is here for Follow-up (Gastroparesis) Pt saw Dr Lyon from [facility] for gastroparesis. Started on Domperidone, but it did not work as well as Reglan. Has ran out of Reglan for a long time. Scheduled to return to see Dr Lyon Irineo 13 Intermittent tremors when hypoglycemia. Still have tremors even pt not on Reglan. Does not eat 6 meals. Has find it difficult to juggle between gastroparesis and DM diets as she find some conflicting info. She did not start tricia as previously recommended. Had surgery on Apr 25 for her back Pt has been having both intermittent urinary and bowel incontinence. Sx slowly better, but very slow. Surgeon say that sx can last a year. Takes Colace and Amitiza BID w/ good sx control, but she still takes PRN Magnesium Citrate every 2-3 days ?? EGD, done on 02/25/[address] Lackey due to dyspepsia and GERD, showed esophagitis, gastritis, but normal duodenum.?? Colonoscopy, done on 05/20/[address] ibrahim due to personal history of colon polyps, showed hemorrhoid, but otherwise normal colonoscopy to the ileum. Patient was recommended to have a repeat colonoscopy in 5 years. ROS:Review of Systems Constitutional: Negative. Pt currently or recently takes NSAIDS ( (i.e Ibuprofen, Aleve, Advil, Exedrin, BC Powder, diclofenac, meloxicam, & Naproxen, etc)? No Pt currently or recently takes abx? Yes HENT: Negative. Eyes: Negative. Respiratory: Negative. Cardiovascular: Negative. Gastrointestinal: Positive for abdominal distention (bloating), abdominal pain and constipation. Endocrine: Negative. Genitourinary: Negative. Pain when urinating Musculoskeletal: Negative. Skin: Negative. Allergic/Immunologic: Negative. Neurological: Negative. Hematological: Negative. Psychiatric/Behavioral: Negative. Objective OBJECTIVE Allergy: Pt is allergic to cuba inhibitors; amlodipine; beta adrenergic blockers; cyclobenzaprine; hydrochlorothiazide; hyzaar [losartan potassium-hctz]; latex; losartan; metformin; penicillins; pioglitazone; and spironolactone. MEDS: ??? albuterol sulfate HFA 108 (90 Base) [...] Muscle Spasms., Disp: , Rfl: ??? Empagliflozin (JARDIANCE) 25 MG tablet, Take [...] As Needed., Disp: , Rfl: ??? glimepiride (AMARYL) 4 MG tablet, Take 1 po qd before a meal, Disp: 90 tablet, Rfl: 1 ??? losartan [...] Daily., Disp: 90 capsule, Rfl: 3 ??? oxyCODONE-acetaminophen (PERCOCET) 5-325 MG per tablet, Take 1 tablet by mouth Every 6 (Six) Hours As Needed., Disp: , Rfl: ??? pyridoxine (VITAMIN B-6) 100 MG tablet, Take 100 mg by mouth Daily., Disp: , Rfl: ??? rOPINIRole (REQUIP) 1 MG tablet, Take 1 tablet by mouth Every Night. Take 1 hour before bedtime., Disp: 90 tablet, Rfl: 3 ??? SITagliptin (JANUVIA) 100 MG tablet, Take 1 tablet by mouth Daily., Disp: 90 tablet, Rfl: 1 ??? topiramate (TOPAMAX) 50 MG tablet, TAKE ONE TABLET BY MOUTH TWICE DAILY (Patient taking differently: TAKE ONE TABLET BY MOUTH as needed), Disp: 180 tablet, Rfl: 0 ??? traZODone (DESYREL) 50 MG tablet, Take 1 to 2 tabs po hs prn, Disp: 180 tablet, Rfl: 3 ??? Desvenlafaxine Succinate ER (PRISTIQ) 25 MG tablet sustained-release 24 hour, Take 1 tablet by mouth Daily., Disp: 30 tablet, Rfl: 5 ??? traMADol (ULTRAM) 50 MG tablet, TAKE 1 TABLET PO TID PRN FOR SEVERE BREAKTHROUGH PAIN, Disp: 270 tablet, Rfl: 0 Lab Results Component Value Date WBC 7.20 04/22/2019 WBC 6.40 11/28/2018 WBC 7.58 10/11/2018 EOSABS 0.24 04/22/2019 EOSABS 0.16 10/11/2018 EOSABS 0.13 07/15/2018 HGB 16.7 (H) 04/22/2019 HGB 15.7 11/28/2018 HGB 16.5 (H) 10/11/2018 HCT 50.6 (H) 04/22/2019 HCT 49.1 (H) 11/28/2018 HCT 54.4 (H) 10/11/2018 MCV 87.5 04/22/2019 MCV 90.0 11/28/2018 MCV 93.0 10/11/2018 MCHC 33.0 04/22/2019 MCHC 32.0 11/28/2018 MCHC 30.3 (L) 10/11/2018 PLT 301 04/22/2019 PLT 287 11/28/2018 PLT 287 10/11/2018 Lab Results Component Value Date RDW 12.7 04/22/2019 RDW 13.8 11/28/2018 RDW 14.1 10/11/2018 MCHC 33.0 04/22/2019 MCHC 32.0 11/28/2018 MCHC 30.3 (L) 10/11/2018 LABIRON 21 11/28/2018 LABIRON 25 11/12/2018 FERRITIN 235.10 (H) 11/28/2018 FERRITIN 212.00 (H) 11/12/2018 FERRITIN 225.00 (H) 10/11/2018 FERRITIN 184.00 (H) 07/15/2018 Lab Results Component Value Date NA 138 04/22/2019 K 4.4 04/22/2019 CL 99 04/22/2019 CO2 25.9 04/22/2019 BUN 13 04/22/2019 BUN 15 11/28/2018 BUN 24 (H) 10/11/2018 CREATININE 0.68 04/22/2019 CREATININE 0.77 11/28/2018 CREATININE 0.92 10/11/2018 EGFRIFNONA 88 04/22/2019 EGFRIFNONA 76 11/28/2018 EGFRIFNONA 62 10/11/2018 GLUCOSE 144 (H) 04/22/2019 CALCIUM 10.0 04/22/2019 ANIONGAP 13.1 04/22/2019 Lab Results Component Value Date AST 30 04/22/2019 AST 39 (H) 11/28/2018 AST 38 (H) 10/11/2018 ALT 40 (H) 04/22/2019 ALT 47 (H) 11/28/2018 ALT 49 (H) 10/11/2018 ALKPHOS 144 (H) 04/22/2019 ALKPHOS 163 (H) 11/28/2018 ALKPHOS 161 (H) 10/14/2018 BILITOT 0.5 04/22/2019 BILITOT 0.4 11/28/2018 BILITOT 0.5 10/11/2018 ALBUMIN 4.10 04/22/2019 ALBUMIN 4.40 11/28/2018 ALBUMIN 4.60 10/11/2018 Lab Results Component Value Date GGT 49 (H) 04/08/2018 GGT 59 (H) 12/26/2017 LIPASE 55 (H) 12/14/2017 Lab Results Component Value Date HGBA1C 6.8 04/18/2019 HGBA1C 7.4 01/13/2019 HGBA1C 7.4 10/11/2018 HGBA1C 7.6 07/15/2018 HGBA1C 7.2 04/08/2018 TSH 1.760 07/15/2018 TSH 2.457 04/08/2018 TSH 1.465 05/22/2017 Lab Results Component Value Date INR 0.99 10/02/2013 INR 1.00 09/18/2013 INR 1.02 04/29/2013 Lab Results Component Value Date HEPAIGM Non-Reactive 04/12/2018 HEPAIGM Non-Reactive 12/26/2017 HEPBSAG Non-Reactive 12/26/2017 HEPBIGMCORE Non-Reactive 12/26/2017 HEPCVIRUSABY Non-Reactive 12/26/2017 Lab Results Component Value Date THCURSCR Negative 12/10/2018 THCURSCR Negative 01/30/2018 PCPUR Negative 12/10/2018 PCPUR Negative 01/30/2018 COCAINEUR Negative 12/10/2018 COCAINEUR Negative 01/30/2018 METAMPSCNUR Negative 12/10/2018 METAMPSCNUR Negative 01/30/2018 LABOPIASCN Negative 12/10/2018 LABOPIASCN Negative 01/30/2018 AMPHETSCREEN Negative 12/10/2018 AMPHETSCREEN Negative 01/30/2018 LABBENZSCN Negative 12/10/2018 LABBENZSCN Negative 01/30/2018 TRICYCLICSCN Negative 12/10/2018 TRICYCLICSCN Negative 01/30/2018 LABMETHSCN Negative 12/10/2018 LABMETHSCN Negative 01/30/2018 BARBITSCNUR Negative 12/10/2018 BARBITSCNUR Negative 01/30/2018 OXYCODONESCN Negative 12/10/2018 OXYCODONESCN Negative 01/30/2018 PROPOXSCN Negative 12/10/2018 PROPOXSCN Negative 01/30/2018 BUPRENORSCNU Negative 12/10/2018 BUPRENORSCNU Negative 01/30/2018 Wt Readings from Last 5 Encounters: 05/26/19 79.8 kg (176 lb) 05/16/19 82.6 kg (182 lb) 05/09/19 83.9 kg (185 lb) 04/22/19 83.9 kg (185 lb) 04/18/19 81.7 kg (180 lb 3.2 oz) body mass index is 33.25 kg/m??.,Temp: 98.5 ??F (36.9 ??C),BP: 120/72,Heart Rate: 84 Physical Exam General Well developed; well nourished. NAD. using walker ENT Anicteric sclerae. Oral mucosa pink and moist without thrush or lesions GI Abd soft, NT, ND, normal active bowel sounds. No HSM. No abd hernia Pt care team: Slime Hammer APRN & Domenica Qureshi [facility] 05/26/19 9:56 AM [facility]--Gastroenterology [phone] CC: Ev Oakley APRN [address] [facility] [address] FAX:[phone] documented in this encounter Plan of Treatment Upcoming Encounters Date Type Department Care Team (Late st Contact Info) Description 03/13/2024 2:45 PM EST Office Visit [facility] [address] [place] [address] [place] [address] Pj Ace MD [address] [facility] [address] [place] [address] Scheduled Referrals Name Type Priority Associated Diagnoses Order Schedule Ambulatory Referral to Nutrition Services Outpatient Referral Routine Gastroparesis Diabetes mellitus type 2 in obese Ordered: 06/01/2019 documented as of this encounter Visit Diagnoses Diagnosis Gastroparesis- Primary Chronic constipation Unspecified constipation LFT elevation Diabetes mellitus type 2 in obese Type II or unspecified type diabetes mellitus without mention of complication, not stated as uncontrolled documented in this encounter Care Teams Assistant Press Operator Offset Relationship Specialty Start Date End Date Ev Augustin APRN [address] [place] [id number] PCP - General Internal Medicine 04/12/18 08/18/21 documented as of this encounter
--- OUTSIDE RECORDS SUMMARY | 2024-02-20 09:11 | XMS_ITS | Encounter Summary ---
[facility] Address [address] [place] [address] Care Team Providers Care Instructor Technical Training Name Role Phone Alex Davis MD Primary Care Provider [phone] Reason for Visit * Reason Onset Date Comments HOME HEALTH INFORMATION 07/30/2019 Encounter Details Date Type Department Care Team (Late st Contact Info) Description 07/30/2019 Telephone [facility] INTERNAL MEDICINE [address] [place] [address] Ev Augustin, EXHAUST MACHINE OPERATOR [address] [place] [address] HOME HEALTH INFORMATION Social History Tobacco Use Types Packs/Day Years [...] encounter Miscellaneous Notes * Telephone Encounter - Kaity Jacques RegSched Rep - 07/30/2019 11:30 AM EDT BRIAN STATED THAT THE PT WOULD STILL LIKE TO CONTINUE HER COVID-19 CONCERNS FOR TWO MORE WEEKS. SHE IS STILL NOT COMFORTABLE WITH PEOPLE COMING INTO HER HOME. BIRAN CONTACT [phone] [facility] documented in this encounter Plan of Treatment Upcoming Encounters Date Type Department Care Team (Late st Contact Info) Description 03/13/2024 2:45 PM EST Office Visit [facility] CARDIOLOG[facility] [address] [facility] [place] [address] Pj Ace MD [facility] [address] [facility] [address] [place] [address] documented as of this encounter Visit Diagnoses Not on filedocumented in this encounter Additional Health Concerns Infection Onset Date Last Indicated Resolved Time COVID Screen (preop/placement) 10/15/2020 10/15/2020 10/15/2020 7:48 PM EDT documented as of this encounter Care Teams Instructor Technical Training Relationship Specialty Start Date End Date Alex Davis MD [address] [place] [address] PCP - General Family Medicine 09/05/21 documented as of this encounter
--- OUTSIDE RECORDS SUMMARY | 2024-02-20 09:11 | XMS_ITS | Encounter Summary ---
[facility] Address [address] [place] [address] Care Team Providers Care Peoplesoft Crm Developer Name Role Phone Ev Augustin APRN Primary Care Provider [phone] Reason for Visit * Reason Onset Date Comments Matilde- Apt Change 06/27/2019 COVID-19 Encounter Details Date Type Department Care Team (Late st Contact Info) Description 06/27/2019 Telephone [facility] HEMATOLOGY & ONCOLOGY [address] [phone] Nelly Clayton MD [address] [place] [address] Matilde- Ryanne Change (COVID-19) Social History Tobacco Use Types Packs/Day Years [...] Miscellaneous Notes * Telephone Encounter - Sarah Dallas MA - 06/27/2019 1:56 PM EDT Due to the coronavirus pandemic I explained to the pt that Dr. Clayton is trying to limit as many people as possible to having to come to the office. She will be calling patients by telephone or doinga live video chat. Called pt to notify her of scheduled telephone encounter with Dr. Matilde Sanchez, RN. Pt does not have MyChart and states she isn't good with technology so is unable to do a video encounter. She will have a telephone encounter with Dr. Clayton , 07/03/2019 @ 10 AM. Pt verbalized understanding and will keep the phone nearby. documented in this encounter Plan of Treatment Upcoming Encounters Date Type Department Care Team (Late st Contact Info) Description 03/13/2024 2:45 PM EST Office Visit [facility] CARDIOLOGY [address] [place] [address] [address] [place] [address] Pj Ace MD [address] [facility] [address] [place] [address] documented as of this encounter Visit Diagnoses Not on filedocumented in this encounter Care Teams Peoplesoft Crm Developer Relationship Specialty Start Date End Date Ev Augustin, DENTAL FINANCIAL COORDINATOR [address] [place] [address] PCP - General Internal Medicine 04/12/18 08/18/21 documented as of this encounter
--- OUTSIDE RECORDS SUMMARY | 2024-02-20 09:11 | XMS_ITS | Encounter Summary ---
[facility] Address [address] [place] [address] Care Team Providers Care Retail Supervisor Name Role Phone Alex Davis MD Primary Care Provider [phone] Reason for Visit * Reason Onset Date Comments KD- CONCERNS 05/16/2019 Encounter Details Date Type Department Care Team (Late st Contact Info) Description 05/16/2019 Telephone [facility] INTERNAL MEDICINE [address] [place] [address] Ev Augustin, ASSEMBLER CHASSIS [address] [place] [address] KD- CONCERNS Social History Tobacco Use Types Packs/Day [...] Encounter - Theresa Robert RegSched Rep - 05/16/2019 2:23 PM EST [facility]ZZ WITH [facility] CALLED TO REPORT A MISSED VISIT WITH PT, PT HAD A DRS APPOINTMENT AND CANCELLED HOME HEALTH VISIT FOR 05/16/2019 NO CALL BACK REQUIRED, HE WAS CALLING TO DOCUMENT MISSED VISIT * Telephone Encounter - Mat Dick RegSched Rep - 05/16/2019 8:06 AM EST Sridhar with Home Health called and stated that the patient is on pretty strict restrictions from her back doctor/surgery. Sridhar stated that he wanted to let Dr. Augustin know that he has not been able to work with the patient for Physical Therapy. He will begin 05/26/19 due to the paatients restrictions. Sridhar callback: [phone] documented in this encounter Plan of Treatment Upcoming Encounters Date Type Department Care Team (Late st Contact Info) Description 03/13/2024 2:45 PM EST Office Visit [facility] CARDIOLOGY [address] [facility] [place] [address] Pj Ace MD [address] [facility] [address] [place] [address] documented as of this encounter Visit Diagnoses Not on filedocumented in this encounter Additional Health Concerns Infection Onset Date Last Indicated Resolved Time COVID Screen (preop/placement) 10/15/2020 10/15/2020 10/15/2020 7:48 PM EDT documented as of this encounter Care Teams Retail Supervisor Relationship Specialty Start Date End Date Alex Davis MD [address] [place] [address] PCP - General Family Medicine 09/05/21 documented as of this encounter
--- OUTSIDE RECORDS SUMMARY | 2024-02-20 09:11 | XMS_ITS | Encounter Summary ---
[facility] [address] [place] [address] Care Team Providers Care Project Controls Specialist Name Role Phone Ev Augustin APRN Primary Care Provider [phone] [phone] Encounter Details Date Type Department Care Team (Late st Contact Info) Description 08/20/2019 10:35 AM EDT Lab [facility] [address] [place] [address] Elevated ferritin, hemoglobin, and red blood cell [...] HOSPITAL CARDIOLOGY [address] [place] [address] [place] [address] Pj Ace MD [address] [place] [address] documented as of this encounter Procedures Procedure Name Priority Date/Time Associated Diagnosis Comments CBC WITH AUTO DIFFERENTIAL Routine 08/20/2019 10:07 AM EDT Elevated ferritin, hemoglobin, and red blood cell count IRON PROFILEC Routine 08/20/2019 10:07 AM EDT Elevated ferritin, hemoglobin, and red blood cell count CBC AND DIFFERENTIAL Routine 08/20/2019 10:07 AM EDT Elevated ferritin, hemoglobin, and red blood cell count FERRITIN Routine 08/20/2019 10:07 AM EDT Elevated ferritin, hemoglobin, and red blood cell count documented in this encounter Results * (ABNORMAL) CBC Auto Differential (08/20/2019 10:07 AM EDT) [facility] Signature WBC 7.20 3.40 - 10.80 10*3/mm3 08/20/2019 10:09 AM EDT [facility] RBC 6.01(H) 3.77 - 5.28 10*6/mm3 08/20/2019 10:09 AM EDT [facility] Hemoglobin 16.4(H) 12.0 - 15.9 g/dL 08/20/2019 10:09 AM EDT [facility] Hematocrit 51.7(H) 34.0 - 46.6 % 08/20/2019 10:09 AM EDT [facility] RDW 14.2 12.3 - 15.4 % 08/20/2019 10:09 AM EDT [facility] MCV 86.0 79.0 - 97.0 fL 08/20/2019 10:09 AM EDT [facility] MCH 27.3 26.6 - 33.0 pg 08/20/2019 10:09 AM EDT [facility] MCHC 31.8 31.5 - 35.7 g/dL 08/20/2019 10:09 AM EDT [facility] MPV 8.3 6.0 - 12.0 fL 08/20/2019 10:09 AM EDT [facility] Platelets 289 140 - 450 10*3/mm3 08/20/2019 10:09 AM EDT [facility] Neutrophil % 69.0 42.7 - 76.0 % 08/20/2019 10:09 AM EDT [facility] Lymphocyte % 24.5 19.6 - 45.3 % 08/20/2019 10:09 AM EDT [facility] Monocyte % 6.5 5.0 - 12.0 % 08/20/2019 10:09 AM EDT [facility] Neutrophils, Absolute 5.00 1.70 - 7.00 10*3/mm3 08/20/2019 10:09 AM EDT [facility] Lymphocytes, Absolute 1.80 0.70 - 3.10 10*3/mm3 08/20/2019 10:09 AM EDT [facility] Monocytes, Absolute 0.50 0.10 - 0.90 10*3/mm3 08/20/2019 10:09 AM EDT [facility] Blood Venipuncture / Unknown 08/20/2019 10:07 AM EDT 08/20/2019 10:07 AM EDT us Nelly Clayton MD LAB BLOOD ORDERABLES Final Resul t [facility]
[address] [place] [address], * (ABNORMAL) Iron Profile (08/20/2019 10:07 AM EDT) Iron 73 37 - 145 mcg/dL 08/20/2019 11:12 AM EDT [facility] Iron Saturation (TSAT) 17(L) 20 - 50 % 08/20/2019 11:12 AM EDT [facility] Transferrin 286 200 - 360 mg/dL 08/20/2019 11:12 AM EDT [facility] TIBC 426 298 - 536 mcg/dL 08/20/2019 11:12 AM EDT [facility] Blood Venipuncture / Unknown 08/20/2019 10:07 AM EDT 08/20/2019 10:07 AM EDT us Nelly Clayton MD LAB BLOOD ORDERABLES Final Resul t Performing Organization Address [facility] Co de Phone Number [facility]
[address] [place] [address], * Ferritin (08/20/2019 10:07 AM EDT) Ferritin 104.40 13.00 - 150.00 ng/mL 08/20/2019 11:30 AM EDT [facility] Blood Venipuncture / Unknown 08/20/2019 10:07 AM EDT 08/20/2019 10:07 AM EDT Narrative [facility] - 08/20/2019 11:30 AM EDT Results may be falsely decreased if patient taking Biotin. us Nelly Clayton MD LAB BLOOD ORDERABLES Final Resul t Performing Organization Address [facility] Co de Phone Number [facility]
[address] [place] [address], documented in this encounter Visit Diagnoses Diagnosis Elevated ferritin, hemoglobin, and red blood cell count documented in this encounter Care Teams Project Controls Specialist Relationship Specialty Start Date End Date Ev Augustin, SOFTWARE APPLICATION TESTER [address] [place] [address] PCP - General Internal Medicine 04/12/18 08/18/21 documented as of this encounter
--- OUTSIDE RECORDS SUMMARY | 2024-02-20 09:11 | XMS_ITS | Encounter Summary ---
[facility] [address] [place] [address] Care Team Providers Care Favor Maker Name Role Phone Ev Augustin WOOD HANDLER Primary Care Provider [phone] [phone] Encounter Details Date Type Department Care Team (Late st Contact Info) Description 08/20/2019 10:00 AM EDT Office Visit [facility] [address] [facility] [address] [place] [id number] Anita Palm, WOOD HANDLER [address] [facility] [address] [place] [id number] Erythrocytosis (Primary Dx) Social History Tobacco Use [...] Sign Reading Time Taken Comments Blood Pressure 128/65 08/20/2019 10:08 AM EDT Pulse 74 08/20/2019 10:08 AM EDT Temperature 36.1 ??C (97 ??F) 08/20/2019 10:08 AM EDT Respiratory Rate 18 08/20/2019 10:08 AM EDT Oxygen Saturation 95% 08/20/2019 10:08 AM EDT Inhaled Oxygen Concentration - - Weight 80.3 kg (177 lb) 08/20/2019 10:08 AM EDT Height 154.9 cm (5' 1 ) 08/20/2019 10:08 AM EDT Body Mass Index 33.44 08/20/2019 10:08 AM EDT documented in this encounter Progress Notes * Anita Palm [place], WOOD HANDLER - 08/20/2019 10:00 AM EDT PROBLEM LIST: 1. Elevated ferritin 2. NAFLD 3. Gastroparesis 4. DM2 Subjective CHIEF COMPLAINT: elevated ferritin and hgb HISTORY OF PRESENT ILLNESS: Gertrudis Daly returns for follow-up. 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 She had been doing physical therapy at home but has stopped recently due toconcerns with the coronavirus. She still has issues with bowel and bladder. Otherwise she is doing well. She has not had any fevers, infections, or shortness of breath. She does have sleep apnea but c ould not tolerate a CPAP. She states she has been sleeping better since her surgery in April. Past Medical History, Past Surgical History, Social History, Family History have been reviewed and are without significant changes except as mentioned. Review of Systems Constitutional: Negative for appetite change, fatigue, fever and unexpected weight change. HENT: Negative for mouth sores, sore throat and trouble swallowing. Respiratory: Negative for cough, shortness of breath and wheezing. Cardiovascular: Negative for chest pain, palpitations and leg swelling. Gastrointestinal: Negative for abdominal distention, abdominal pain, constipation, diarrhea, nauseaand vomiting. Genitourinary: Negative for dysuria and frequency. Bowel and bladder issues since back surgery Musculoskeletal: Positive for gait problem. Negative for arthralgias. Skin: Negative for pallor, rash and wound. Neurological: Negative for dizziness and weakness. Hematological: Does not bruise/bleed easily. Psychiatric/Behavioral: Negative for confusion and sleep disturbance. The patient is not nervous/anxious. A comprehensive 14 point review of systems [...] Pioglitazone Rash ??? Spironolactone Rash Objective BP 128/65 Pulse 74 Temp 97 ??F (36.1 ??C) Resp 18 Ht 154.9 cm (61 ) Wt 80.3 kg (177 lb) LMP (LMP Unknown) SpO2 95% BMI 33.44 kg/m?? Performance Status: 0 Constitutional: No acute distress, awake, alert HENT: NCAT, mucous membranes moist Respiratory: Clear to auscultation bilaterally, respiratory effort normal Cardiovascular: RRR, no murmurs, rubs, or gallops, palpable pedal pulses bilaterally Gastrointestinal: Positive bowel sounds, soft, nontender, nondistended Musculoskeletal: No bilateral ankle edema Psychiatric: Appropriate affect, cooperative Neurologic: Oriented x 3, strength symmetric in all extremities, Cranial Nerves grossly intact to confrontation, speech clear Skin: No rashes Lab Results Component Value Date HGB 16.4 (H) 08/20/2019 HCT 51.7 (H) 08/20/2019 MCV 86.0 08/20/2019 PLT 289 08/20/2019 WBC 7.20 08/20/2019 NEUTROABS 5.00 08/20/2019 LYMPHSABS 1.80 08/20/2019 MONOSABS 0.50 08/20/2019 EOSABS 0.24 04/22/2019 BASOSABS 0.09 04/22/2019 Results for GERTRUDIS DALY ( ) as of 08/20/2019 13:39 Ref. Range 08/20/2019 10:07 Iron Latest Ref Range: 37 - 145 mcg/dL 73 Ferritin Latest Ref Range: 13.00 - 150.00 ng/mL 104.40 Iron Saturation Latest Ref Range: 20 - 50 % 17 (L) Transferrin Latest Ref Range: 200 - 360 mg/dL 286 TIBC Latest Ref Range: 298 - 536 mcg/dL 426 Hemochromatosis Gene Hemochromatosis Mutation Collected: 11/28/18 1350 Resulting lab: [facility] Value: Comment Comment: NO MUTATION IDENTIFIED Assessment/Plan Gertrudis Daly is a 63 y.o. year old female with elevated ferritin and erythrocytosis. Elevated ferritin: No evidence of hereditary hemochromatosis based on genetic testing. Ferritin level is normal on labs today. Erythrocytosis: She continues to have mildly elevated hematocrit and hemoglobin. She had a elevatederythropoietin level and has untreated sleep apnea. Encouraged her to follow up regarding CPAP treatment. We will see her back in 3 months to recheck labs. I spent 15 minutes with the patient. I spent > 50% percent of this time counseling and discussing prognosis, diagnostic testing, evaluation, current status and management. Anita Palm APRN [facility] 08/20/2019 documented in this encounter Plan of Treatment Upcoming Encounters Date Type Department Care Team (Late st Contact Info) Description 03/13/2024 2:45 PM EST Office Visit [facility] C[facility] [address] [place] [address] [place] [address] Pj Ace MD [address] [facility] [address] [place] [address] documented as of this encounter Visit Diagnoses Diagnosis Erythrocytosis- Primary Polycythemia, secondary documented in this encounter Care Teams Favor Maker Relationship Specialty Start Date End Date Ev Augustin APRN [address] [place] [address] PCP - General Internal Medicine 04/12/18 08/18/21 documented as of this encounter
--- OUTSIDE RECORDS SUMMARY | 2024-02-20 09:11 | XMS_ITS | Encounter Summary ---
[facility] Address [address] [place] [id number] Care Team Providers Care Medical Record Librarian Name Role Phone Ev Augustin APRN Primary Care Provider [phone] [phone] Reason for Referral * Diagnostic Imaging (Routine) - Closed Specialty Diagnoses / Procedures Referred By Contac t Referred To Contact Radiology Diagnoses Encounter for screening mammogram for malignant neoplasm of breast Procedures Mammo Screening Digital Tomosynthesis Bilateral With CAD Ev Augustin APRN [address] [place] [address] Phone: tel: fax: [address] [address] Phone: tel: Referral ID Status Reason Start Date Expiration Date Visits Re quested Visits Authorized [id number] Closed 01/16/2020 01/15/2021 1 1 Reason for Visit * Reason Comments Diabetes Hyperlipidemia fenofibrate makes he r sweat Back Pain Encounter Details Date Type Department Care Team ([facility] Contact Info) Description 01/16/2020 11:15 AM EDT Office Visit [facility] INTER[facility] MEDICINE [address] [place] [address] Ev Augustin APRN [address] [place] [address] Mixed hyperlipidemia (Primary Dx); Type 2 diabetes mellitus with hyperglycemia, without long-term current use of insulin; Postlaminectomy syndrome of lumbar region; Herniated lumbar intervertebral disc; Encounter for screening mammogram for malignant neoplasm of breast Social History Tobacco Use Types Packs/Day Years [...] Sign Reading Time Taken Comments Blood Pressure 124/76 01/16/2020 11:12 AM EDT Pulse 68 01/16/2020 11:12 AM EDT Temperature 36.4 ??C (97.6 ??F) 01/16/2020 11:12 AM E DT Respiratory Rate - - Oxygen Saturation 97% 01/16/2020 11:12 AM EDT Inhaled Oxygen Concentration - - Weight 81.6 kg (180 lb) 01/16/2020 11:12 AM EDT Height 154.9 cm (5' 1 ) 01/16/2020 11:12 AM EDT Body Mass Index 34.01 01/16/2020 11:12 AM EDT documented in this encounter Progress Notes * Ev Augustin, VASILE - 01/16/2020 11:15 AM EDT Chief Complaint Patient presents with ??? Diabetes ??? Hyperlipidemia fenofibrate makes her sweat ??? Back Pain History of Present Illness 64 y.o.female presents for Type 2 diabetes chronic years; follows with endocrine. bs have been doing better. Takes jardiance, amaryl, januvia. HLD chronic onset years; taking fenofibrate but that made her sweat too much so she stopped taking. Back pain chronic onset years with disc disease. Takes tramadol prn. chronic bladder retention and unable to empty bladder completely after tumor removed from spine . in and out cath herself twice daily. difficulty knowing when she needs to have a bowel movement withdecreased sensation in rectum. Positive constipation. chronic low back pain related to above as well as herniated lumbar disc and postlaminectomy syndrome of lumbar region. Had to change pain management docs in order to get stimulator removed. Review of Systems Constitutional: Positive for diaphoresis. Negative for chills and fever. Respiratory: Negative for shortness of breath. Cardiovascular: Negative for chest pain, palpitations and leg swelling. Gastrointestinal: Positive for constipation. Genitourinary: Positive for difficulty urinating. Musculoskeletal: Positive for back pain. Negative for arthralgias. Skin: Negative for rash. [facility] The following portions of the patient's history [...] Daily Before Supper., Disp: 90 tablet,Rfl: 1 ??? losartan (COZAAR) 100 MG tablet, [...] prn, Disp: 180 tablet, Rfl: 3 ??? vitamin B-6 (PYRIDOXINE) 100 MG tablet, pyridoxine (vitamin B6), Disp: , Rfl: ??? TRULANCE 3 MG tablet, , Disp: , Rfl: VITALS: BP 124/76 Pulse 68 Temp 97.6 ??F (36.4 ??C) Ht 154.9 cm (61 ) Wt 81.6 kg (180 lb) LMP (LMP Unknown) SpO2 97% No BMI 34.01 kg/m?? Physical Exam Vitals signs reviewed. HENT: Head: Normocephalic. Cardiovascular: Rate and Rhythm: Normal rate and regular rhythm. Pulses: Normal pulses. Dorsalis pedis pulses are 2+ on the right side and 2+ on the left side. Posterior tibial pulses are 2+ on the right side and 2+ on the left side. Heart sounds: Normal heart sounds. Pulmonary: Effort: Pulmonary effort is normal. No respiratory distress. Breath sounds: Normal breath sounds. Feet: Right foot: Protective Sensation: 10 sites tested. 10 sites sensed. Skin integrity: Skin integrity normal. Left foot: Protective Sensation: 10 sites tested. 10 sites sensed. Skin integrity: Skin integrity normal. Neurological: Mental Status: She is alert and oriented to person, place, and time. diabetic foot exam updated. LABS Results for orders placed or performed in visit on 11/21/19 Ferritin Specimen: Blood Result Value Ref Range Ferritin 124.70 13.00 - 150.00 ng/mL Iron Profile Specimen: Blood Result Value Ref Range Iron 72 37 - 145 mcg/dL Iron Saturation 18 (L) 20 - 50 % Transferrin 272 200 - 360 mg/dL TIBC 405 298 - 536 mcg/dL CBC Auto Differential Specimen: Blood Result Value Ref Range WBC 6.90 3.40 - 10.80 10*3/mm3 RBC 5.40 (H) 3.77 - 5.28 10*6/mm3 Hemoglobin 15.5 12.0 - 15.9 g/dL Hematocrit 46.9 (H) 34.0 - 46.6 % RDW 14.3 12.3 - 15.4 % MCV 87.0 79.0 - 97.0 fL MCH 28.8 26.6 - 33.0 pg MCHC 33.1 31.5 - 35.7 g/dL MPV 8.5 6.0 - 12.0 fL Platelets 265 140 - 450 10*3/mm3 Neutrophil % 69.9 42.7 - 76.0 % Lymphocyte % 25.4 19.6 - 45.3 % Monocyte % 4.7 (L) 5.0 - 12.0 % Neutrophils, Absolute 4.80 1.70 - 7.00 10*3/mm3 Lymphocytes, Absolute 1.80 0.70 - 3.10 10*3/mm3 Monocytes, Absolute 0.30 0.10 - 0.90 10*3/mm3 ASSESSMENT/PLAN Diagnoses and all orders for this visit: 1. Mixed hyperlipidemia (Primary) - atorvastatin (LIPITOR) 10 MG tablet; Take 1 tablet by mouth Every Night. Dispense: 30 tablet; Refill: 5 Stop fenofibrate; will try statin start low dose to try to cut back on side effects; if tolerates ok will increase. 2. Type 2 diabetes mellitus with hyperglycemia, without long-term current use of insulin ([facility]) - POC Glycosylated Hemoglobin (Hb A1C) Cont meds follow up with endocrine. 3. Postlaminectomy syndrome of lumbar region Still has a refill left on the tramadol. 4. Herniated lumbar intervertebral disc Still has a refill left on the tramadol. 5. Encounter for screening mammogram for malignant neoplasm of breast - Mammo Screening Digital Tomosynthesis Bilateral With CAD; Future I discussed the patients findings and my recommendations with patient. Patient was encouraged to keep me informed of any acute changes, lack of improvement, or any new concerning symptoms. Patient voiced understanding of all instructions and denied further questions. FOLLOW-UP Return in about 6 months (around 07/16/2020), or if symptoms worsen or fail to improve. Electronically signed by: Ev Augustin APRN 01/16/2020 EMR Dragon/Chief Librarian Branch Or Department Disclaimer: Much of this encounter note is an electronic chlorobutadiene scrubber operator/translation of spoken language to printed text. The [...] Visit [facility] CARDIOLOGY [address] [facility] [place] [address] [place] [address] Pj Ace MD [address] [place] [address] documented as of this encounter Procedures Procedure Name Priority Date/Time Associated Diagnosis Comments POCT GLYCOSYLATED HEMOGLOBIN (HGB A1C) Routine 01/16/2020 11:47 AM EDT Type 2 diabetes mellitus with hyperglycemia, without [...] findings are noted in the left breast. Ev Augustin LEARNING AND DEVELOPMENT COORDINATOR IMG MAMMOGRAPHY ORDERABLE S Final Result * POC Glycosylated Hemoglobin (Hb A1C) (01/16/2020 11:47 AM EDT) Hemoglobin A1C 7.4 % [facility] Blood 01/16/2020 11:4 7 AM EDT Ev Augustin LEARNING AND DEVELOPMENT COORDINATOR POINT OF CARE TEST ORDERA BLES Final Result [facility]
[address] [place] [address], documented in this encounter Visit Diagnoses Diagnosis Mixed hyperlipidemia- Primary Type 2 diabetes mellitus with hyperglycemia, without long-term current use of insulin Postlaminectomy syndrome of lumbar region Postlaminectomy syndrome, lumbar region Herniated lumbar intervertebral disc Displacement of lumbar intervertebral disc without myelopathy Encounter for screening mammogram for malignant neoplasm of breast Encounter for screening mammogram for malignant neoplasm of breast documented in this encounter Care Teams Medical Record Librarian Relationship Specialty Start Date End Date Ev Augustin APRN [address] [place], [place] [id number] PCP - General Internal Medicine 04/12/18 08/18/21 documented as of this encounter
--- OUTSIDE RECORDS SUMMARY | 2024-02-20 09:11 | XMS_ITS | Encounter Summary ---
[facility] [address] [place] [address] Care Team Providers Care On Air Talent Name Role Phone Ev Augustin APRN Primary Care Provider [phone] Encounter Details Date Type Department Care Team (Late st Contact Info) Description 05/18/2019 Telephone [facility] INTER[facility] MEDICINE [address] [place] [phone] Mirna Forde APRN [address] [place] [address] Social History Tobacco Use Types Packs/Day Years [...] Miscellaneous Notes * Telephone Encounter - Mirna Forde APRN - 05/18/2019 9:39 AM EST Called patient and informed or negative urine culture results, advised to stop taking prescribed antibiotic and follow-up with urology as previously indicated. Patient verbalized understanding and agreement. documented in this encounter Plan of Treatment Upcoming Encounters Date Type Department Care Team (Late st Contact Info) Description 03/13/2024 2:45 PM EST Office Visit [facility] CARDIOLOGY [address] [place] [address] [place] [phone] Pj Ace MD [address] [facility] [address] [place] [address] documented as of this encounter Visit Diagnoses Not on filedocumented in this encounter Care Teams On Air Talent Relationship Specialty Start Date End Date Ev Augustin APRN [address] [place] [address] PCP - General Internal Medicine 04/12/18 08/18/21 documented as of this encounter
--- OUTSIDE RECORDS SUMMARY | 2024-02-20 09:11 | XMS_ITS | Encounter Summary ---
[facility] Address [address] [place] [id number] Care Team Providers Care Coal Sampler Name Role Phone Luly Augustin APRN Primary Care Provider [phone] Reason for Referral * Routine Exam (Routine) - Closed Specialty Diagnoses / Procedures Referred By Contac t Referred To Contact Ophthalmology Diagnoses Type 2 diabetes mellitus with hyperglycemia, without long-term current use of insulin Luly Augustin APRN [address] [place] [phone] Phone: tel: fax: [facility] [address] [place] [address] Phone: tel: fax: Referral ID Status Reason Start Date Expiration Date V isits Requested Visits Authorized [id number] Closed Specialty Services Required 10/20/2019 10/19/2020 1 1 Reason for Visit * Reason Comments Medicare Wellness-Initial Visit Hypertension Encounter Details Date Type Department Care Team ([facility] st Contact Info) Description 10/20/2019 10:45 AM EDT Office Visit [facility] INTERNAL MEDICINE [address] [place] [phone] Luly Augustin APRN [address] [place] [address] Initial Medicare annual wellness visit (Primary Dx); Gastroesophageal reflux disease without esophagitis; Postlaminectomy syndrome of lumbar region; Herniated lumbar intervertebral disc; Chronic migraine without aura without status migrainosus, not intractable; Healthcare maintenance; At risk for osteoporosis; Post-menopausal; Vitamin D insufficiency; Type 2 diabetes mellitus with hyperglycemia, without long-term current use of insulin; Situational depression; Elevated alkaline phosphatase level; Mixed hyperlipidemia Social History Tobacco Use Types [...] Sign Reading Time Taken Comments Blood Pressure 130/80 10/20/2019 10:34 AM EDT Pulse 74 10/20/2019 10:34 AM EDT Temperature 36.7 ??C (98 ??F) 10/20/2019 10:34 AM EDT Respiratory Rate - - Oxygen Saturation 95% 10/20/2019 10:34 AM EDT Inhaled Oxygen Concentration - - Weight 81.6 kg (180 lb) 10/20/2019 10:34 AM EDT Height 154.9 cm (5' 1 ) 10/20/2019 10:34 AM EDT Body Mass Index 34.01 10/20/2019 10:34 AM EDT documented in this encounter Progress Notes * Luly Augustin APRN - 10/20/2019 10:45 AM EDTAddended by: LULY AUGUSTIN on: 10/21/2019 08:23 AM Modules accepted: Orders * Luly Augustin APRN - 10/20/2019 10:45 AM EDT Initial Medicare Wellness Visit The ABC's of the Annual Wellness Visit Chief Complaint Patient presents with ??? Medicare Wellness-Initial Visit ??? Hypertension HPI: COLIN Crespo-1955, is a 63 y.o. female who presents for an Initial Medicare Wellness Visit. Patient had recent fall with twisting of left ankle in a hole and had a left ankle fracture September 21; now wearing walking boot and using cane. 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 Has to in and out cath herself twice daily. Also has difficulty knowing when she needs to have a bowel movement with decreased sensation in rectum. Positive constipation. Has to frequently self stimulate for bowel movement. Feels like something is hanging down in vagina pushing against her bladder. She has chronic low back pain related to above as well as herniated lumbar disc and postlaminectomy syndrome of lumbar region. She was previously followed by pain management Dr. Carl gil but she is no longer seeing him. Had to change pain management docs in order to get stimulator removed. She needs a refill on her tramadol. She had an MRI done last week and she follows with Dr. Villalba through [facility]. Migraines chronic has 1 to 2/month. Uses Topamax to help with migraine pain. Needs refill. Followed by choreography director Dr. Citlaly blas [facility] Does admit to some increased anxiety and depression. Positive life changes. Positive increased stress at home. Positive insomnia. Her daughter has been staying with her for a few weeks and has helpedhaving someone there to talk to. Patient does not want to take any antidepressants. No thoughts of self-harm or suicidal ideations. Sees director inpatient headache program for diabetes management. GERD chronic onset years. Takes Prilosec without difficulties. No melena, hematochezia, hematemesis, or early satiety. Status post hysterectomy 20+ years. Needs a DEXA scan. History of vitamin D insufficiency. Does notroutinely take any calcium or vitamin D supplement. 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 Current Medical Providers: Patient Care Team: Luly Augustin APRN as PCP - General (Internal Medicine) Bebeto Adams MD as Consulting Physician (Pain Medicine) Damien Berg MD as Consulting Physician (Neurosurgery) Leidy Robertson MD as Consulting Physician (Internal Medicine) Guero Lunsford PA-C as Physician Motocross Racer (Physician Motocross Racer) Slime Hammer APRN as Nurse Practitioner (Gastroenterology) Roc Tracey PA-C as Physician Motocross Racer (Family Medicine) Matty Lackey MD as Consulting Physician (Gastroenterology) Health Habits and Functional and Cognitive Screening and Depression Screening: Functional & Cognitive Status 10/20/2019 Do you have difficulty preparing food and eating? Yes Do you have difficulty bathing yourself, getting dressed or grooming yourself? Yes Do you have difficulty using the toilet? Yes Do you have difficulty moving around from place to place? Yes Do you have trouble with steps or getting out of a bed or a chair? Yes Current Diet Well Balanced Diet Dental Exam Up to date Eye Exam Up to date Exercise (times per week) 0 times per week Current Exercise Activities Include None Do you need help using the phone? No Are you deaf or do you have serious difficulty hearing? No Do you need help with transportation? Yes Do you need help shopping? Yes Do you need help preparing meals? Yes Do you need help with housework? Yes [...] have difficulty concentrating, remembering or making decisions? Yes Compared to one year ago, the patient feels her physical health is better and her mental health is the same. Depression Screen: PHQ-2/PHQ-9 Depression Screening 10/20/2019 Little interest or pleasure in doing things 0 Feeling down, depressed, or hopeless 3 Trouble falling or staying asleep, or sleeping too much 3 Feeling tired or having little energy 3 Poor appetite or overeating 0 Feeling bad about yourself - or that you are a failure or have let yourself or your family down 3 Trouble concentrating on things, such as reading the newspaper or watching television 3 Moving or speaking so slowly that other people could have noticed. Or the opposite - being so fidgety or restless that you have been moving around a lot more than usual 1 Total Score 16 If you checked off any problems, how difficult have these problems made it for you to do your work,take care of things at home, or get along with other people? Somewhat difficult Past Medical/Family/Social History: The following portions of the patient's history were reviewed and updated as appropriate: allergies, current medications, past family history, past medical history, past social history, past surgicalhistory and problem list. Allergies Allergen Reactions ??? Iain Inhibitors Cough [...] tablet, pyridoxine (vitamin B6), Disp: , Rfl: Aspirin use counseling: not currently on asa; will reeval after labs and updated ASCVD risk factor. Current medication list contains no high risk medications. No harmful drug interactions have been identified. Family History Problem Relation Age of Onset ??? Hypertension Mother ??? Peripheral vascular disease Mother ??? Ulcers Mother ??? Kidney failure Mother ??? Lung disease Father ??? Diabetes Other type 2 ??? Kidney failure Maternal Grandmother Social History Tobacco Use ??? Smoking status: Never Smoker ??? Smokeless tobacco: Never Used Substance Use Topics ??? Alcohol use: No Past Surgical History: Procedure Laterality Date ??? [...] Dr. Damien Berg ??? TUBAL ABDOMINAL LIGATION Patient Active Problem List Diagnosis ??? Anxiety and depression ??? Fatigue ??? Hyperlipidemia ??? Herniated lumbar intervertebral disc ??? Vaginal atrophy ??? Postlaminectomy syndrome of lumbar region ??? Meningeal adhesions/lumbar arachnoiditis ??? Lumbar facet arthropathy/lumbar spondylosis without myelopathy ??? Sacroiliac joint dysfunction of left side ??? Obesity with sleep apnea ??? Physical deconditioning ??? Moderate obesity ??? Insomnia ??? History of migraine headaches ??? Benign essential hypertension ??? Myofascial pain syndrome ??? Controlled [...] life of spinal cord stimulator ??? Erythrocytosis Review of Systems Constitutional: Negative for chills and fever. Eyes: Negative for discharge and visual disturbance. Respiratory: Negative for cough and shortness of breath. Cardiovascular: Positive for palpitations. Negative for chest pain. Genitourinary: Positive for difficulty urinating. Musculoskeletal: Positive for arthralgias, back pain and gait problem. Skin: Negative for rash. Neurological: Positive for headaches. Negative for dizziness. Psychiatric/Behavioral: Positive for dysphoric mood and sleep disturbance. Negative for self-injuryand suicidal ideas. The patient is nervous/anxious. Objective Vitals: 10/20/19 1034 BP: 130/80 Pulse: 74 Temp: 98 ??F (36.7 ??C) SpO2: 95% Weight: 81.6 kg (180 lb) Height: 154.9 cm (61 ) PainSc: 0-No pain Patient's Body mass index is 34.01 kg/m??. BMI is above normal parameters. Recommendations include:exercise counseling and nutrition counseling. The patient has no evidence of cognitve impairment. Physical Exam Constitutional: She is oriented to person, place, and time. She appears well- developed and well-nourished. No distress. HENT: Head: Normocephalic. Right Ear: External ear normal. Left Ear: External ear normal. Nose: Nose normal. Mouth/Throat: Oropharynx is clear and moist. Eyes: Pupils are equal, round, and reactive to light. Conjunctivae and EOM are normal. Right eye exhibits no discharge. Left eye exhibits no discharge. Neck: Normal range of motion. Neck supple. No thyromegaly present. Cardiovascular: Normal rate, regular rhythm, normal heart sounds and intact distal pulses. No edema Pulmonary/Chest: Effort normal and breath sounds normal. No respiratory distress. Abdominal: Soft. Bowel sounds are normal. There is no tenderness. Genitourinary: Pelvic exam was performed with patient supine. There is no rash, tenderness or lesion on the right labia. There is no rash, tenderness or lesion on the left labia. Uterus is absent. Cervix is absent. Vagina exhibits no lesion. No erythema or tenderness in the vagina. No foreign body in the vagina. No signs of injury around the vagina. No vaginal discharge found. No cystocele or rectocele present. Musculoskeletal: Left ankle: She exhibits decreased range of motion. Wearing walking boot left foot/ankle; uses cane. Lymphadenopathy: She has no cervical adenopathy. Neurological: She is alert and oriented to person, place, and time. Skin: Skin is warm and dry. Capillary refill takes less than 2 seconds. No rash noted. Psychiatric: She has a normal mood and affect. Her behavior is normal. Vitals reviewed. Recent Lab Results: Resulted Orders Comprehensive Metabolic Panel Result Value Ref Range Glucose 190 (H) 65 - 99 mg/dL BUN 14 8 - 23 mg/dL Creatinine 0.59 0.57 - 1.00 mg/dL Sodium 137 136 - 145 mmol/L Potassium 4.3 3.5 - 5.2 mmol/L Chloride 99 98 - 107 mmol/L CO2 28.1 22.0 - 29.0 mmol/L Calcium 10.3 8.6 - 10.5 mg/dL Total Protein 8.1 6.0 - 8.5 g/dL Albumin 4.50 3.50 - 5.20 g/dL ALT (SGPT) 63 (H) 1 - 33 U/L AST (SGOT) 39 (H) 1 - 32 U/L Alkaline Phosphatase 153 (H) 39 - 117 U/L Total Bilirubin 0.4 0.0 - 1.2 mg/dL eGFR Non Amer 103 >60 mL/min/1.73 Globulin 3.6 gm/dL A/G Ratio 1.3 g/dL BUN/Creatinine Ratio 23.7 7.0 - 25.0 Anion Gap 9.9 5.0 - 15.0 mmol/L Lipid Panel Result Value Ref Range Total Cholesterol 249 (H) 0 - 200 mg/dL Triglycerides 212 (H) 0 - 150 mg/dL HDL Cholesterol 50 40 - 60 mg/dL LDL Cholesterol 157 (H) 0 - 100 mg/dL VLDL Cholesterol 42.4 (H) 5 - 40 mg/dL LDL/HDL Ratio 3.13 Vitamin D 25 Hydroxy Result Value Ref Range 25 Hydroxy, Vitamin D 29.6 (L) 30.0 - 100.0 ng/ml CBC Auto Differential Result Value Ref Range WBC 6.32 3.40 - 10.80 10*3/mm3 RBC 5.74 (H) 3.77 - 5.28 10*6/mm3 Hemoglobin 16.4 (H) 12.0 - 15.9 g/dL Hematocrit 49.0 (H) 34.0 - 46.6 % MCV 85.4 79.0 - 97.0 fL MCH 28.6 26.6 - 33.0 pg MCHC 33.5 31.5 - 35.7 g/dL RDW 13.7 12.3 - 15.4 % RDW-SD 43.1 37.0 - 54.0 fl MPV 11.8 6.0 - 12.0 fL Platelets 263 140 - 450 10*3/mm3 Neutrophil % 60.8 42.7 - 76.0 % Lymphocyte % 29.3 19.6 - 45.3 % Monocyte % 6.6 5.0 - 12.0 % Eosinophil % 1.6 0.3 - 6.2 % Basophil % 1.1 0.0 - 1.5 % Immature Grans % 0.6 (H) 0.0 - 0.5 % Neutrophils, Absolute 3.84 1.70 - 7.00 10*3/mm3 Lymphocytes, Absolute 1.85 0.70 - 3.10 10*3/mm3 Monocytes, Absolute 0.42 0.10 - 0.90 10*3/mm3 Eosinophils, Absolute 0.10 0.00 - 0.40 10*3/mm3 Basophils, Absolute 0.07 0.00 - 0.20 10*3/mm3 Immature Grans, Absolute 0.04 0.00 - 0.05 10*3/mm3 nRBC 0.2 0.0 - 0.2 /100 WBC Assessment/Plan Age-appropriate Screening Schedule: Refer to the list below for future screening recommendations based on patient's age, sex and/or medical conditions. Health Maintenance Topic Date Due ??? ZOSTER VACCINE (1 of 2) 2006 ??? PAP SMEAR 10/18/2015 ??? LIPID PANEL 07/16/2019 ??? HEMOGLOBIN A1C 10/17/2019 ??? DIABETIC EYE EXAM 10/25/2019 ??? INFLUENZA VACCINE 11/01/2019 ??? DIABETIC FOOT EXAM 01/14/2020 ??? URINE MICROALBUMIN 04/22/2020 ??? MAMMOGRAM 01/14/2021 ??? TDAP/TD VACCINES (2 - Td) 05/07/2025 ??? COLONOSCOPY 05/20/2028 ??? PNEUMOCOCCAL VACCINE (19-64 MEDIUM RISK) Completed Medicare Risks and Personalized Health Plan: Advance Directive Discussion Breast Cancer/Mammogram Screening: current next due Jan 2020. Cardiovascular risk Chronic Pain: chronic back pain. Tramadol prn. Colon Cancer Screening; done 2018 FU 5 years. Diabetic Lab Screening: hx dm2; update A1c. Keep FU next week with endocrine. Referral placed to update diabetic eye exam. Inactivity/Sedentary: need increased exercise once recovered from ankle fx. Obesity/Overweight: need heart healthy diet. Osteoprorosis Risk: dexa scan ordered. [facility]-Preventive Services Quick Reference Medicare Preventive Services Addressed: Annual Wellness Visit (AWV) Bone Density Measurements Advance Care Planning: ACP discussion was held with the patient during this visit. Patient has an advance directive (not in EMR), copy requested. Diagnoses and all orders for this visit: 1. Initial Medicare annual wellness visit (Primary) 2. Gastroesophageal reflux disease without esophagitis - omeprazole (priLOSEC) 40 MG capsule; Take 1 capsule by mouth Daily. Dispense: 90 capsule; Refill:3 3. Postlaminectomy syndrome of lumbar region - traMADol (ULTRAM) 50 MG tablet; TAKE 1 TABLET PO TID PRN FOR SEVERE BREAKTHROUGH PAIN Dispense: 90 tablet; Refill: 2 As part of patient's treatment plan I [...] The patient has read and signed the [facility] Controlled Substance Contract. I will continue to see patient for regular follow up appointments. They are well controlled on their medication. GENE is updated today every 3 months; appears appropriate for fill. The patient is aware of the potential for addiction and dependence. 4. Herniated lumbar intervertebral disc - traMADol (ULTRAM) 50 MG tablet; TAKE 1 TABLET PO TID PRN FOR SEVERE BREAKTHROUGH PAIN Dispense: 90 tablet; Refill: 2 5. Chronic migraine without aura without status migrainosus, not intractable - topiramate (TOPAMAX) 50 MG tablet; Take 1 tablet by mouth Daily As Needed (migraine). Dispense: 90 tablet; Refill: 3 6. Healthcare maintenance - CBC & Differential; Future - Comprehensive Metabolic Panel; Future - Lipid Panel; Future 7. At risk for osteoporosis - DEXA Bone Density Axial; Future - Vitamin D 25 Hydroxy; Future 8. Post-menopausal - DEXA Bone Density Axial; Future - Vitamin D 25 Hydroxy; Future 9. Vitamin D insufficiency - Vitamin D 25 Hydroxy; Future 10. Type 2 diabetes mellitus with hyperglycemia, without long-term current use of insulin ([facility]) - Hemoglobin A1c; Future - Ambulatory Referral for Diabetic Eye Exam-Ophthalmology 11. Situational depression Declines medications. 12. Mixed hyperlipidemia ASCVD risk 12.5%; discussed adding low dose ASA 81mg daily or every other day. Intolerant to statins due to myalgias. Will try fenofibrate. Encouraged heart healthy diet and exercise. - Fenofibrate 145mg daily An After Visit Summary and PPPS with all of these plans were given to the patient. Follow Up: Return in about 3 months (around 01/20/2020). For med refill Benita Augustin CONCRETE PILE DRIVER OPERATOR documented in this encounter Plan of Treatment Upcoming Encounters Date Type Department Care Team (Late st Contact Info) Description 03/13/2024 2:45 PM EST Office Visit [facility] CARDIOLOGY [address] [place] [address] [address] Pj Ace MD [address] [place] [address] Scheduled Referrals Name Type Priority Associated Diagnoses Orde r Schedule Ambulatory Referral for Diabetic Eye Exam-Ophthalmology Diabetic Eye Exam Referral Routine Type 2 diabetes mellitus with hyperglycemia, without long-term current use of insulin Ordered: 10/20/2019 documented as of this encounter Procedures Procedure Name Priority Date/Time Associated Diagnosis Comments HEMOGLOBIN A1C Add-On 10/20/2019 11:48 AM EDT Type 2 diabetes mellitus with hyperglycemia, without long-term current use of insulin documented in this encounter Results * (ABNORMAL) Hemoglobin A1c (10/20/2019 11:48 AM EDT) Hemoglobin A1C 8.50(H) 4.80 - 5.60 % 10/20/2019 6:41 PM EDT [facility] Blood Venipuncture / Unknown 10/20/2019 11:48 AM EDT 10/20/2019 5:07 PM EDT Narrative [facility] - 10/20/2019 6:41 PM EDT Hemoglobin A1C Ranges: Increased Risk for Diabetes ??5.7% to 6.4% Diabetes ? >= 6.5% Diabetic Goal ?< 7.0% Luly M Charli CONCRETE PILE DRIVER OPERATOR LAB BLOOD ORDERABLES Rosie l Result [facility]
[address] [place] [address], * (ABNORMAL) Vitamin D 25 Hydroxy (10/20/2019 11:48 AM EDT) Pathologist [facility] 25 Hydroxy, Vitamin D 29.6(L) 30.0 - 100.0 ng/ml 10/20/2019 11:21 PM EDT [facility] Blood Venipuncture / Unknown 10/20/2019 11:48 AM EDT 10/20/2019 11:48 AM EDT Narrative [facility] - 10/20/2019 11:21 PM EDT Reference Range for Total Vitamin D 25(OH) Deficiency <20.0 ng/mL Insufficiency 21-29 ng/mL Sufficiency 30-100 ng/mL Toxicity >100 ng/ml Results may be falsely increased if patient taking Biotin. Luly Esquivel Charli CONCRETE PILE DRIVER OPERATOR LAB BLOOD ORDERABLES Rosie l Result Performing Organization Address City/Special Care Hospital/ZIP Co de Phone Number [facility]
[address] [place] [address], * (ABNORMAL) Lipid Panel (10/20/2019 11:48 AM EDT) Total Cholesterol 249(H) 0 - 200 mg/dL 10/20/2019 10:54 PM EDT [facility] Triglycerides 212(H) 0 - 150 mg/dL 10/20/2019 10:54 PM EDT [facility] HDL Cholesterol 50 40 - 60 mg/dL 10/20/2019 10:54 PM EDT [facility] LDL Cholesterol 157(H) 0 - 100 mg/dL 10/20/2019 10:54 PM EDT [facility] VLDL Cholesterol 42.4(H) 5 - 40 mg/dL 10/20/2019 10:54 PM EDT [facility] LDL/HDL Ratio 3.13 10/20/2019 10:54 PM EDT [facility] Blood Venipuncture / Unknown 10/20/2019 11:48 AM EDT 10/20/2019 11:48 AM EDT Narrative [facility] - 10/20/2019 10:54 PM EDT Cholesterol Reference Ranges (U.S. Department of Health [...] ? 160-189 mg/dL Very High ?>189 mg/dL us Luly Augustin CONCRETE PILE DRIVER OPERATOR LAB BLOOD ORDERABLES Rosie patel Result [facility]
[address] [place] [address], * (ABNORMAL) Comprehensive Metabolic Panel (10/20/2019 11:48 AM EDT) Glucose 190(H) 65 - 99 mg/dL 10/20/2019 10:54 PM [facility] BUN 14 8 - 23 mg/dL 10/20/2019 10:54 PM [facility] Creatinine 0.59 0.57 - 1.00 mg/dL 10/20/2019 10:54 PM [facility] Sodium 137 136 - 145 mmol/L 10/20/2019 10:54 PM [facility] Potassium 4.3 3.5 - 5.2 mmol/L 10/20/2019 10:54 PM [facility] Chloride 99 98 - 107 mmol/L 10/20/2019 10:54 PM [facility] CO2 28.1 22.0 - 29.0 mmol/L 10/20/2019 10:54 PM [facility] Calcium 10.3 8.6 - 10.5 mg/dL 10/20/2019 10:54 PM [facility] Total Protein 8.1 6.0 - 8.5 g/dL 10/20/2019 10:54 PM [facility] Albumin 4.50 3.50 - 5.20 g/dL 10/20/2019 10:54 PM [facility] ALT (SGPT) 63(H) 1 - 33 U/L 10/20/2019 10:54 PM [facility] AST (SGOT) 39(H) 1 - 32 U/L 10/20/2019 10:54 PM [facility] Alkaline Phosphatase 153(H) 39 - 117 U/L 10/20/2019 10:54 PM [facility] Total Bilirubin 0.4 0.0 - 1.2 mg/dL 10/20/2019 10:54 PM [facility] eGFR Non Amer 103 >60 mL/min/1.7 3 10/20/2019 10:54 PM [facility] Globulin 3.6 gm/dL 10/20/2019 10:54 PM [facility] A/G Ratio 1.3 g/dL 10/20/2019 10:54 PM [facility] BUN/Creatinine Ratio 23.7 7.0 - 25.0 10/20/2019 10:54 PM EDT [facility] Anion Gap 9.9 5.0 - 15.0 mmol/L 10/20/2019 10:54 PM EDT [facility] Blood Venipuncture / Unknown 10/20/2019 11:48 AM EDT 10/20/2019 11:48 AM EDT Narrative [facility] - 10/20/2019 10:54 PM EDT GFR Normal >60 Chronic Kidney Disease <60 Kidney Failure <15 us Luly Augustin CONCRETE PILE DRIVER OPERATOR LAB BLOOD ORDERABLES Rosie l Result [facility]
[address] [place] [address], documented in this encounter Visit Diagnoses Diagnosis Initial Medicare annual wellness visit- Primary Gastroesophageal reflux disease without esophagitis Esophageal reflux Postlaminectomy syndrome of lumbar region Postlaminectomy syndrome, lumbar region Herniated lumbar intervertebral disc Displacement of lumbar intervertebral disc without myelopathy Chronic migraine without aura without status migrainosus, not intractable Healthcare maintenance At risk for osteoporosis Other specified conditions influencing health status Post-menopausal Asymptomatic postmenopausal status (age-related) (natural) Vitamin D insufficiency Type 2 diabetes mellitus with hyperglycemia, without long-term current use of insulin Situational depression Elevated alkaline phosphatase level Mixed hyperlipidemia documented in this encounter Care Teams Coal Sampler Relationship Specialty Start Date End Date Luly Augustin APRN [address] [place] [address] PCP - General Internal Medicine 04/12/18 08/18/21 documented as of this encounter
--- OUTSIDE RECORDS SUMMARY | 2024-02-20 09:11 | XMS_ITS | Encounter Summary ---
[facility] Address [address] [place] [id number] Care Team Providers Care Director Of Mobile Marketing Name Role Phone Ev Augustin APRN Primary Care Provider [phone] Encounter Details Date Type Department Care Team (Late st Contact Info) Description 10/20/2019 11:50 AM EDT Lab [facility] [address] [place] [address] Healthcare maintenance; At risk for osteoporosis; Post-menopausal; Vitamin D deficiency Social History Tobacco Use [...] 2:45 PM EST Office Visit [facility] [address] [facility] [place] [address] Pj Ace MD [address] [place] [address] [address] documented as of this encounter Procedures Procedure Name Priority Date/Time Associated Diagnosis Comments CBC WITH AUTO DIFFERENTIAL Routine 10/20/2019 11:48 AM EDT Healthcare maintenance VITAMIN D,25-HYDROXY Routine 10/20/2019 11:48 AM EDT At risk for osteoporosis Post-menopausal Vitamin D deficiency CBC AND DIFFERENTIAL Routine 10/20/2019 11:48 AM EDT Healthcare maintenance LIPID PANEL Routine 10/20/2019 11:48 AM EDT Healthcare maintenance COMPREHENSIVE METABOLIC PANEL Routine 10/20/2019 11:48 AM EDT Healthcare maintenance documented in this encounter Results * (ABNORMAL) CBC Auto Differential (10/20/2019 11:48 AM EDT) WBC 6.32 3.40 - 10.80 10*3/mm3 10/21/2019 1:56 AM EDT [facility] RBC 5.74(H) 3.77 - 5.28 10*6/mm3 10/21/2019 1:56 AM EDT [facility] Hemoglobin 16.4(H) 12.0 - 15.9 g/dL 10/21/2019 1:56 AM EDT [facility] Hematocrit 49.0(H) 34.0 - 46.6 % 10/21/2019 1:56 AM EDT [facility] MCV 85.4 79.0 - 97.0 fL 10/21/2019 1:56 AM EDT [facility] MCH 28.6 26.6 - 33.0 pg 10/21/2019 1:56 AM EDT [facility] MCHC 33.5 31.5 - 35.7 g/dL 10/21/2019 1:56 AM EDT [facility] RDW 13.7 12.3 - 15.4 % 10/21/2019 1:56 AM EDT [facility] RDW-SD 43.1 37.0 - 54.0 fl 10/21/2019 1:56 AM EDT [facility] MPV 11.8 6.0 - 12.0 fL 10/21/2019 1:56 AM [facility] Platelets 263 140 - 450 10*3/mm3 10/21/2019 1:56 AM [facility] Neutrophil % 60.8 42.7 - 76.0 % 10/21/2019 1:56 AM [facility] Lymphocyte % 29.3 19.6 - 45.3 % 10/21/2019 1:56 AM [facility] Monocyte % 6.6 5.0 - 12.0 % 10/21/2019 1:56 AM [facility] Eosinophil % 1.6 0.3 - 6.2 % 10/21/2019 1:56 AM [facility] Basophil % 1.1 0.0 - 1.5 % 10/21/2019 1:56 AM [facility] Immature Grans % 0.6(H) 0.0 - 0.5 % 10/21/2019 1:56 AM [facility] Neutrophils, Absolute 3.84 1.70 - 7.00 10*3/mm3 10/21/2019 1:56 AM [facility] Lymphocytes, Absolute 1.85 0.70 - 3.10 10*3/mm3 10/21/2019 1:56 AM [facility] Monocytes, Absolute 0.42 0.10 - 0.90 10*3/mm3 10/21/2019 1:56 AM [facility] Eosinophils, Absolute 0.10 0.00 - 0.40 10*3/mm3 10/21/2019 1:56 AM [facility] Basophils, Absolute 0.07 0.00 - 0.20 10*3/mm3 10/21/2019 1:56 AM [facility] Immature Grans, Absolute 0.04 0.00 - 0.05 10*3/mm3 10/21/2019 1:56 AM [facility] nRBC 0.2 0.0 - 0.2 /100 WBC 10/21/2019 1:56 AM [facility] Blood Venipuncture / Unknown 10/20/2019 11:48 AM EDT 10/20/2019 11:48 AM EDT Ev Augustin APRN LAB BLOOD ORDERABLES Rosie l Result Performing Organization Address [facility] Co de Phone Number [facility]
[address] [place] [address], * (ABNORMAL) Vitamin D 25 Hydroxy (10/20/2019 11:48 AM EDT) Pathologist [facility] 25 Hydroxy, Vitamin D 29.6(L) 30.0 - 100.0 ng/ml 10/20/2019 11:21 PM EDT [facility] Blood Venipuncture / Unknown 10/20/2019 11:48 AM EDT 10/20/2019 11:48 AM EDT Narrative [facility] - 10/20/2019 11:21 PM EDT Reference Range for Total Vitamin D 25(OH) Deficiency <20.0 ng/mL Insufficiency 21-29 ng/mL Sufficiency 30-100 ng/mL Toxicity >100 ng/ml Results may be falsely increased if patient taking Biotin. Ev Augustin APRN LAB BLOOD ORDERABLES Rosie l Result Performing Organization Address [facility] de Phone Number [facility]
[address] [place] [address], * (ABNORMAL) Lipid Panel (10/20/2019 11:48 AM EDT) Total Cholesterol 249(H) 0 - 200 mg/dL 10/20/2019 10:54 PM EDT [facility] Triglycerides 212(H) 0 - 150 mg/dL 10/20/2019 10:54 PM EDT [facility] HDL Cholesterol 50 40 - 60 mg/dL 10/20/2019 10:54 PM EDT [facility] LDL Cholesterol 157(H) 0 - 100 mg/dL 10/20/2019 10:54 PM EDT [facility] VLDL Cholesterol 42.4(H) 5 - 40 mg/dL 10/20/2019 10:54 PM EDT [facility] LDL/HDL Ratio 3.13 10/20/2019 10:54 PM EDT [facility] Blood Venipuncture / Unknown 10/20/2019 11:48 AM EDT 10/20/2019 11:48 AM EDT Narrative [facility] - 10/20/2019 10:54 PM EDT Cholesterol [...] 160-189 mg/dL Very High ?>189 mg/dL us Ev Augustin APRN LAB BLOOD ORDERABLES Rosie patel Result [facility]
[address] [place] [address], * (ABNORMAL) Comprehensive Metabolic Panel (10/20/2019 11:48 AM EDT) [facility] Glucose 190(H) 65 - 99 mg/dL 10/20/2019 10:54 PM [facility] BUN 14 8 - 23 mg/dL 10/20/2019 10:54 PM [facility] Creatinine 0.59 0.57 - 1.00 mg/dL 10/20/2019 10:54 PM [facility] Sodium 137 136 - 145 mmol/L 10/20/2019 10:54 PM [facility] Potassium 4.3 3.5 - 5.2 mmol/L 10/20/2019 10:54 PM [facility] Chloride 99 98 - 107 mmol/L 10/20/2019 10:54 PM [facility] CO2 28.1 22.0 - 29.0 mmol/L 10/20/2019 10:54 PM [facility] Calcium 10.3 8.6 - 10.5 mg/dL 10/20/2019 10:54 PM [facility] Total Protein 8.1 6.0 - 8.5 g/dL 10/20/2019 10:54 PM [facility] Albumin 4.50 3.50 - 5.20 g/dL 10/20/2019 10:54 PM [facility] ALT (SGPT) 63(H) 1 - 33 U/L 10/20/2019 10:54 PM [facility] AST (SGOT) 39(H) 1 - 32 U/L 10/20/2019 10:54 PM [facility] Alkaline Phosphatase 153(H) 39 - 117 U/L 10/20/2019 10:54 PM [facility] Total Bilirubin 0.4 0.0 - 1.2 mg/dL 10/20/2019 10:54 PM [facility] eGFR Non Amer 103 >60 mL/min/1.7 3 10/20/2019 10:54 PM [facility] Globulin 3.6 gm/dL 10/20/2019 10:54 PM [facility] A/G Ratio 1.3 g/dL 10/20/2019 10:54 PM EDT [facility] BUN/Creatinine Ratio 23.7 7.0 - 25.0 10/20/2019 10:54 PM EDT [facility] Anion Gap 9.9 5.0 - 15.0 mmol/L 10/20/2019 10:54 PM EDT [facility] Blood Venipuncture / Unknown 10/20/2019 11:48 AM EDT 10/20/2019 11:48 AM EDT Narrative [facility] - 10/20/2019 10:54 PM EDT GFR Normal >60 Chronic Kidney Disease <60 Kidney Failure <15 us Ev Augustin [employer]STRU[employer] LAB BLOOD ORDERABLES Rosie l Result [facility]
[address] [place] [address], documented in this encounter Visit Diagnoses Diagnosis Healthcare maintenance At risk for osteoporosis Other specified conditions influencing health status Post-menopausal Asymptomatic postmenopausal status (age-related) (natural) Vitamin D deficiency documented in this encounter Care Teams Director Of Mobile Marketing Relationship Specialty Start Date End Date Ev Augustin APRN [address] [place] [address] PCP - General Internal Medicine 04/12/18 08/18/21 documented as of this encounter
--- OUTSIDE RECORDS SUMMARY | 2024-02-20 09:11 | XMS_ITS | Encounter Summary ---
[facility] Address [address] [place] [id number] Care Team Providers Care Septic Technician Name Role Phone Alex Davis MD Primary Care Provider [phone] Reason for Visit * Reason Onset Date Comments KD- PHYSICAL THERAPY MISSED APPT 05/09/2019 Encounter Details Date Type Department Care Team (Late st Contact Info) Description 05/09/2019 Telephone [facility] MEDICINE [address] [place] [address] Ev Augustin, DATA ENTRY OPERATOR [address] [place] [address] KD- PHYSICAL THERAPY MISSED APPT Social History Tobacco Use Types Packs/Day [...] Telephone Encounter - Mitzi Colón MA - 05/12/2019 8:55 AM EST Called sridhar and he voiced understanding * Telephone Encounter - Mitzi Colón MA - 05/10/2019 9:44 AM EST Called sridhar unable to leave . * Telephone Encounter - Ev Augustin APRN - 05/09/2019 5:36 PM EST Ok for verbal order for PT starting next week as long as stays within spinal restrictions per surgeon. * Telephone Encounter - Hu Zheng RegSched Rep - 05/09/2019 3:26 PM EST Sridhar, a physical therapist from [facility], requested a call back to discuss patient's physical therapy. Patient saw her spinal surgeon Dr Villalba yesterday, 05/08/19, and was placed on restrictions. Sridhar stated due to these restrictions he was unable to start patient's physical therapy today 05/09/19. Sridhar requested a verbal order for physical therapy to start next week if possible. Please call and advise. Sridhar call back [phone] documented in this encounter Plan of Treatment Upcoming Encounters Date Type Department Care Team (Late st Contact Info) Description 03/13/2024 2:45 PM EST Office Visit [facility] [address] [place] [address] Pj Ace MD [address] [facility] [address] [place] [address] documented as of this encounter Visit Diagnoses Not on filedocumented in this encounter Additional Health Concerns Infection Onset Date Last Indicated Resolved Time COVID Screen (preop/placement) 10/15/2020 10/15/2020 10/15/2020 7:48 PM EDT documented as of this encounter Care Teams Septic Technician Relationship Specialty Start Date End Date Alex Davis MD [address] [place] [address] PCP - General Family Medicine 09/05/21 documented as of this encounter
--- OUTSIDE RECORDS SUMMARY | 2024-02-20 09:11 | XMS_ITS | Encounter Summary ---
[facility] [address] [place] [address] Care Team Providers Care Creative Intern Name Role Phone Ev Augustin APRN Primary Care Provider [phone] Reason for Visit * Reason Onset Date Comments HOME HEALTH REQUEST 07/15/2019 Encounter Details Date Type Department Care Team (Late st Contact Info) Description 07/15/2019 Telephone [facility] INTER[facility] MEDICINE [address] [place] [address] Ev Augustin, COOK PIE [address] [place] [address] HOME HEALTH REQUEST Social History Tobacco Use Types Packs/Day [...] * Telephone Encounter - Lida Al - 07/16/2019 1:20 PM EDT Verbal order given hold visits for two weeks per patient request. Stated that they will be contacting patient via phone to check in with her. * Telephone Encounter - Theresa Robert RegSched Rep - 07/16/2019 1:03 PM EDT SRIDHAR WITH [facility] RETURNED YOUR CALL * Telephone Encounter - Lida Al - 07/15/2019 2:19 PM EDT Message left for Sridhar to return call * Telephone Encounter - Kaity Jacques RegSched Rep - 07/15/2019 11:58 AM EDT PT REQUESTING THAT HER HOME HEALTH BE PUT ON HOLD FOR TWO WEEKS DUE TO COVID-19. TO LIMIT PEOPLE COMING IN AND OUT OF THE HOME. SRIDHAR ASKED FOR A VERBAL ORDER TO STOP GOING BUT TO CHECK ON HER VIA PHONE. SRIDHAR'S CONTACT [phone] documented in this encounter Plan of Treatment Upcoming Encounters Date Type Department Care Team (Late st Contact Info) Description 03/13/2024 2:45 PM EST Office Visit [facility] [address] [place] [address] [address] Pj Ace MD [address] [facility] [address] [place] [address] documented as of this encounter Visit Diagnoses Not on filedocumented in this encounter Care Teams Creative Intern Relationship Specialty Start Date End Date Ev Augustin APRN [address] [place] [address] PCP - General Internal Medicine 04/12/18 08/18/21 documented as of this encounter
--- OUTSIDE RECORDS SUMMARY | 2024-02-20 09:11 | XMS_ITS | Encounter Summary ---
[facility] Address [address] [place] [address] Care Team Providers Care Perinatal Social Worker Name Role Phone Ev Augustin TANDEM MILL ROLLER Primary Care Provider [phone] Encounter Details Date Type Department Care Team (Late st Contact Info) Description 05/06/2019 Telephone [facility] INTERNAL MEDICINE [address] [place] [address] Ev Augustin, [place] [address] [place] [address] Social History Tobacco Use Types [...] Telephone Encounter - Mitzi Colón MA - 05/06/2019 12:23 PM EST Called and spoke to donna and gave the verbal * Telephone Encounter - Theresa Robert RegSched Rep - 05/06/2019 12:06 PM EST PT WAS DISCHARGED FROM [facility] ON 05/02/19 AFTER SPINAL SURGERY, USING [facility], URINE IS CLOUDY DARK YELLOW, NURSE WANTS VERBAL ORDER TO TAKE A URINE SAMPLE TO THE LAB FOR TESTING. WILL FAX RESULTS TO YOU, IF NURSE DOES NOT ANSWER PLEASE MESSAGE [phone] documented in this encounter Plan of Treatment Upcoming Encounters Date Type Department Care Team (Late st Contact Info) Description 03/13/2024 2:45 PM EST Office Visit [facility] [address] [place] [address] [place] [address] Pj Ace MD [address] [facility] [address] [address] documented as of this encounter Visit Diagnoses Not on filedocumented in this encounter Care Teams Perinatal Social Worker Relationship Specialty Start Date End Date Ev Augustin APRN [address] [place] [address] PCP - General Internal Medicine 04/12/18 08/18/21 documented as of this encounter
--- OUTSIDE RECORDS SUMMARY | 2024-02-20 09:11 | XMS_ITS | Encounter Summary ---
[facility] Address [address] [place] [address] Care Team Providers Care Supervisor Chemical Name Role Phone Ev Augustin APRN Primary Care Provider [phone] Encounter Details Date Type Department Care Team (Late st Contact Info) Description 05/09/2019 Telephone [facility] INTER[facility] MEDICINE [address] [place] [address] Ev Augustin APRN [facility] [place] [address] Social History Tobacco Use Types [...] Encounter - Ev Augustin APRN - 05/09/2019 11:24 AM EST Ok for order per Dr. Grijalva. * Telephone Encounter - Mitzi Colón MA - 05/09/2019 9:22 AM EST Umesh from [facility] and would like to keep seeing her once weekly for 7 weeks documented in this encounter Plan of Treatment Upcoming Encounters Date Type Department Care Team (Late st Contact Info) Description 03/13/2024 2:45 PM EST Office Visit [facility] [address] [place] [address] [place] [address] Pj Ace MD [address] [facility] [address] [facility] [address] [place] [address] documented as of this encounter Visit Diagnoses Not on filedocumented in this encounter Care Teams Supervisor Chemical Relationship Specialty Start Date End Date Ev Augustin APRN [address] [place] [address] PCP - General Internal Medicine 04/12/18 08/18/21 documented as of this encounter
--- OUTSIDE RECORDS SUMMARY | 2024-02-20 09:11 | XMS_ITS | Encounter Summary ---
[facility] [address] [place] [address] Care Team Providers Care Campaign Director Name Role Phone Ev Augustin FOUNDER AND PRESIDENT Primary Care Provider [phone] [phone] Encounter Details Date Type Department Care Team (Late st Contact Info) Description 05/15/2019 Telephone [facility] INTERNAL MEDICINE [address] [place] [address] Ev Augustin, VASILE [address] [place] [address] Social History Tobacco Use Types [...] Telephone Encounter - Mitzi Colón MA - 05/15/2019 11:27 AM EST Called and gave umesh the verbal * Telephone Encounter - Suma Kyle RegSched Rep - 05/15/2019 10:35 AM EST Umesh needs a verbal order to omit patient visit this week due to patient being on restrictions. She is a [facility] patient but they need the order from Dr. Grijalva. She said you can call and leave a message and that would be enough for a verbal order. You can reach the OT at [phone] documented in this encounter Plan of Treatment Upcoming Encounters Date Type Department Care Team (Late st Contact Info) Description 03/13/2024 2:45 PM EST Office Visit [facility] [address] [place] [address] [place] [address] Pj Ace MD [address] [facility] [address] [place] [address] documented as of this encounter Visit Diagnoses Not on filedocumented in this encounter Care Teams Campaign Director Relationship Specialty Start Date End Date Ev Augustin APRN [address] [place] [address] PCP - General Internal Medicine 04/12/18 08/18/21 documented as of this encounter
--- OUTSIDE RECORDS SUMMARY | 2024-02-20 09:11 | XMS_ITS | Encounter Summary ---
[facility] [address] [place] [address] Care Team Providers Care Nut Picker Name Role Phone Ev Augustin APRN Primary Care Provider [phone] [phone] Encounter Details Date Type Department Care Team (Late st Contact Info) Description 11/21/2019 Telephone [facility]EMAT[facility] & [facility]COLOGY [address] [facility] [address] [place] [address] Yoanna Mccoy APRN [address] [facility] [address] [place] [address] Social History Tobacco Use Types Packs/Day Years [...] encounter Miscellaneous Notes * Telephone Encounter - Yoanna Mccoy APRN - 11/21/2019 12:38 PM EDT Reviewed with patient ferritin and iron levels were normal. documented in this encounter Plan of Treatment Upcoming Encounters Date Type Department Care Team (Late st Contact Info) Description 03/13/2024 2:45 PM EST Office Visit [facility] C[facility] [address] [place] [address] Pj Ace MD [address] [facility] [address] [place] [address] documented as of this encounter Visit Diagnoses Not on filedocumented in this encounter Care Teams Nut Picker Relationship Specialty Start Date End Date Ev Augustin APRN [address] [place] [address] PCP - General Internal Medicine 04/12/18 08/18/21 documented as of this encounter
--- OUTSIDE RECORDS SUMMARY | 2024-02-20 09:11 | XMS_ITS | Encounter Summary ---
Author Organization [facility] [address] [place] [address] Care Team Providers Care Cq Developer Name Role Phone Ev Augustin APRN Primary Care Provider [phone] Reason for Visit * Reason Onset Date Comments Med Refill 01/07/2020 Encounter Details Date Type Department Care Team (Late st Contact Info) Description 01/07/2020 Refill [facility] INTERNAL MEDICINE [address] [place] [address] Ev Augustin, VASILE [address] [place] [address] Uncontrolled type 2 diabetes mellitus [...] encounter Miscellaneous Notes * Telephone Encounter - Priscila Romeo RegSched Rep - 01/07/2020 9:55 AM EDT Caller: Gertrudis Gonzalez Relationship: Self Best call back number: [phone] Medication needed: Requested Prescriptions Pending Prescriptions Disp Refills ??? SITagliptin (Januvia) 100 MG tablet 90 tablet 1 Sig: Take 1 tablet by mouth Daily. When do you need the refill by: 01/07/2020 What details did the patient provide when requesting the medication: Patient is needing a referral for this medication and provided the number. [phone] Does the patient have less than a 3 day supply: [] Yes [x] No What is the patient's preferred pharmacy: [facility] - [address] [phone] [facility] [phone] FX documented in this encounter Plan of Treatment Upcoming Encounters Date Type Department Care Team (Late st Contact Info) Description 03/13/2024 2:45 PM EST Office Visit [facility] [address] [facility] [place] [address] Pj Ace MD [address] [place] [address] documented as of this encounter Visit Diagnoses Diagnosis Uncontrolled type 2 diabetes mellitus with hyperglycemia documented in this encounter Care Teams Cq Developer Relationship Specialty Start Date End Date Ev Augustin APRN [address] [place] [address] PCP - General Internal Medicine 04/12/18 08/18/21 documented as of this encounter
--- OUTSIDE RECORDS SUMMARY | 2024-02-20 09:11 | XMS_ITS | Encounter Summary ---
[facility] Address [address] [place] [id number] Care Team Providers Care Electrical Equipment Tester Name Role Phone Ev Augustin APRN Primary Care Provider +1 [phone] Encounter Details Date Type Department Care Team (Late st Contact Info) Description 11/21/2019 10:35 AM EDT Lab [facility] [address] [place] [address] Erythrocytosis; Abnormal finding of blood chemistry, unspecified Social [...] as of this encounter Progress Notes * Yoanna Mccoy APRN - 11/21/2019 10:35 AM EDT I will let the patient know. Thanks documented in this encounter Plan of Treatment Upcoming Encounters Date Type Department Care Team (Late st Contact Info) Description 03/13/2024 2:45 PM EST Office Visit [facility] [address] [place] [address] Pj Ace MD [address] [place] [address] documented as of this encounter Procedures Procedure Name Priority Date/Time Associated Diagnosis Comments CBC WITH AUTO DIFFERENTIAL Routine 11/21/2019 10:01 AM EDT Erythrocytosis IRON PROFILEC Routine 11/21/2019 10:01 AM EDT Abnormal finding of blood chemistry, unspecified Erythrocytosis CBC AND DIFFERENTIAL Routine 11/21/2019 10:01 AM EDT Erythrocytosis FERRITIN Routine 11/21/2019 10:01 AM EDT Abnormal finding of blood chemistry, unspecified Erythrocytosis documented in this encounter Results * (ABNORMAL) CBC Auto Differential (11/21/2019 10:01 AM EDT) WBC 6.90 3.40 - 10.80 10*3/mm3 11/21/2019 10:17 AM EDT [facility] RBC 5.40(H) 3.77 - 5.28 10*6/mm3 11/21/2019 10:17 AM EDT [facility] Hemoglobin 15.5 12.0 - 15.9 g/dL 11/21/2019 10:17 AM EDT [facility] Hematocrit 46.9(H) 34.0 - 46.6 % 11/21/2019 10:17 AM EDT [facility] RDW 14.3 12.3 - 15.4 % 11/21/2019 10:17 AM EDT [facility] MCV 87.0 79.0 - 97.0 fL 11/21/2019 10:17 AM EDT [facility] MCH 28.8 26.6 - 33.0 pg 11/21/2019 10:17 AM EDT [facility] MCHC 33.1 31.5 - 35.7 g/dL 11/21/2019 10:17 AM EDT [facility] MPV 8.5 6.0 - 12.0 fL 11/21/2019 10:17 AM EDT [facility] Platelets 265 140 - 450 10*3/mm3 11/21/2019 10:17 AM EDT [facility] Neutrophil % 69.9 42.7 - 76.0 % 11/21/2019 10:17 AM EDT [facility] Lymphocyte % 25.4 19.6 - 45.3 % 11/21/2019 10:17 AM EDT [facility] Monocyte % 4.7(L) 5.0 - 12.0 % 11/21/2019 10:17 AM EDT [facility] Neutrophils, Absolute 4.80 1.70 - 7.00 10*3/mm3 11/21/2019 10:17 AM EDT [facility] Lymphocytes, Absolute 1.80 0.70 - 3.10 10*3/mm3 11/21/2019 10:17 AM EDT [facility] Monocytes, Absolute 0.30 0.10 - 0.90 10*3/mm3 11/21/2019 10:17 AM T [facility] Blood Venipuncture / Unknown 11/21/2019 10:01 AM EDT 11/21/2019 10:01 AM EDT us Nelly Clayton MD LAB BLOOD ORDERABLES Final Resul t [facility]
[address] [place] [address], * (ABNORMAL) Iron Profile (11/21/2019 10:01 AM EDT) Iron 72 37 - 145 mcg/dL 11/21/2019 11:01 AM EDT [facility] Iron Saturation (TSAT) 18(L) 20 - 50 % 11/21/2019 11:01 AM EDT [facility] Transferrin 272 200 - 360 mg/dL 11/21/2019 11:01 AM EDT [facility] TIBC 405 298 - 536 mcg/dL 11/21/2019 11:01 AM EDT [facility] Blood Venipuncture / Unknown 11/21/2019 10:01 AM EDT 11/21/2019 10:01 AM EDT Nelly Clayton MD LAB BLOOD ORDERABLES Final Resul t Performing Organization Address [facility] Co de Phone Number [facility]
[address] [place] [address], * Ferritin (11/21/2019 10:01 AM EDT) Ferritin 124.70 13.00 - 150.00 ng/mL 11/21/2019 10:56 AM EDT [facility] Blood Venipuncture / Unknown 11/21/2019 10:01 AM EDT 11/21/2019 10:01 AM EDT Narrative [facility] - 11/21/2019 10:56 AM EDT Results may be falsely decreased if patient taking Biotin. us Nelly Clayton MD LAB BLOOD ORDERABLES Final Resul t Performing Organization Address [facility] de Phone Number [facility]
[address] [place] [address], documented in this encounter Visit Diagnoses Diagnosis Erythrocytosis Polycythemia, secondary Abnormal finding of blood chemistry, unspecified documented in this encounter Care Teams Electrical Equipment Tester Relationship Specialty Start Date End Date Ev Augustin, PRINTING AGENT [address] [place] [id number] PCP - General Internal Medicine 04/12/18 08/18/21 documented as of this encounter
--- OUTSIDE RECORDS SUMMARY | 2024-02-20 09:11 | XMS_ITS | Encounter Summary ---
[facility] Address [address] [place] [address] Care Team Providers Care Dry Press Operator Name Role Phone Ev Augustin APRN Primary Care Provider [phone] [phone] Reason for Visit * Reason Comments Diabetes Follow up Encounter Details Date Type Department Care Team (Late st Contact Info) Description 07/21/2019 2:00 PM EDT Office Visit [facility] [address] [facility] [address] [place] [id number] Roc Tracey PA-C [address] [place] [address] Controlled type 2 diabetes mellitus with hypoglycemia, without long-term current use of insulin (Primary Dx); Mixed hyperlipidemia; Benign essential hypertension Social History Tobacco Use Types Packs/Day Years Used Date Smoking Tobacco: Never Smokeless Tobacco: Never Tobacco Cessation:Counseling Given: No Alcohol Use Standard Drinks/Week Comments No 0 [...] Sign Reading Time Taken Comments Blood Pressure - - Pulse - - Temperature - - Respiratory Rate - - Oxygen Saturation - - Inhaled Oxygen Concentration - - Weight 79.8 kg (176 lb) 07/21/2019 1:54 PM EDT Height 154.9 cm (5' 1 ) 07/21/2019 1:54 PM EDT Body Mass Index 33.25 07/21/2019 1:54 PM EDT documented in this encounter Progress Notes * Gi Al MA - 07/21/2019 2:00 PM EDT You have chosen to receive care through a telephone visit. Do you consent to use a telephone visit for your medical care today? Yes * Roc Tracey PA-C - 07/21/2019 2:00 PM EDT Phone visit conducted to comply with patient safety concerns in accordance with CDC recommendationsfor the COVID-19 pandemic. Chief Complaint F/u for Diabetes Mellitus. HPI Gertrudis Gonzalez is a 63 y.o. female with chronic back pain and HTN- on multiple antihypertensives followed by cardiology in [place], who is here today for f/u of Diabetes Mellitus type 2. The initial diagnosis of diabetes was made approximately 2015. 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 A1C- 6.8 (04/18/2019), 7.4 (01/13/19), 7.4 (10/11/18), 7.6 (07/15/18), 7.2 (04/08/18), 7.7 (12/14/17), 6.7 (09/12/17), 8.9 (05/2017) Diabetic complications: gastroparesis followed by GI at [facility] Eye exam current (within one year): yes- no retinopathy Foot care and dental care: discussed Current diabetic medications include: Jardiance 25mg daily - takes in the morning Glimepiride 4mg daily- takes at bedtime, doesn't eat after this Januvia 100mg daily - takes in the morning ACEI/ARB: losartan-hctz Statin: intolerant to statins, including crestor 5mg, Repatha and Praluent not covered by insurance. Past medications: metformin (???caused blurred vision, went away when stopped taking metformin), invokana (insurance didn't cover but thinks this controlled glucose better), actos Diabetic Monitoring - pt reports she checks bs fasting only, most readings 130- 150, she feels shakyafter breakfast (takes glimepiride before breakfast) Nutrition: Current diet: improving diet last 2 weeks. Eats out on Sunday, but cooks rest of week. Breakfast isegg sandwich on flatbread. Likes fruit. No sugary drinks. Got rid of candy in the house. No cakes. Weakness is break, pasta, potatoes. Likes vegetables. Current exercise: none Seen RD in past: [...] for Muscle Spasms., Disp: , Rfl: ??? Desvenlafaxine Succinate ER [...] The patient is not nervous/anxious. Physical Exam Ht 154.9 cm (61 ) Wt 79.8 kg (176 lb) LMP (LMP Unknown) No BMI 33.25 kg/m?? Body mass index is 33.25 kg/m??. Physical Exam Constitutional: No distress. AAOx3 Psychiatric: She has a normal mood and affect. Her behavior is normal. Judgment and thought contentnormal. limited exam due to phone visit Labs and Imaging Lab Results Component Value Date HGBA1C 6.8 04/18/2019 HGBA1C 7.4 01/13/2019 HGBA1C 7.4 10/11/2018 No visits with results within 1 Month(s) from this visit. Latest known visit with results is: Office Visit on 05/16/2019 Component Date Value Ref Range Status ??? Glucose 05/16/2019 109 70 - 130 mg/dL Final ??? Color 05/16/2019 Kenia Yellow, Straw, Dark Yellow, Kenia Final ??? Clarity, UA 05/16/2019 Clear Clear Final ??? Specific Walton 05/16/2019 1.015 1.005 - 1.030 Final ??? pH, Urine 05/16/2019 7.0 5.0 - 8.0 Final ??? Leukocytes 05/16/2019 Negative Negative Final ??? Nitrite, UA 05/16/2019 Negative Negative Final ??? Protein, POC 05/16/2019 Trace* Negative mg/dL Final ??? Glucose, UA 05/16/2019 3+* Negative, 1000 mg/dL (3+) mg/dL Final ??? Ketones, UA 05/16/2019 Negative Negative Final ??? Urobilinogen, UA 05/16/2019 Normal Normal Final ??? Bilirubin 05/16/2019 Negative Negative Final ??? Blood, UA 05/16/2019 3+* Negative Final ??? Urine Culture 05/16/2019 No growth Final Assessment / Plan Gertrudis was seen today for diabetes. Diagnoses and all orders for this visit: Controlled type 2 diabetes mellitus with hypoglycemia, without long-term current use of insulin ([facility]) Mixed hyperlipidemia Benign essential hypertension Diabetes Mellitus 2 is under improved control. -A1c 6.8 last visit, no a1c today due to phone visit -she reports some shakiness after eating breakfast even though she takes glimepiride before eating -glimepiride 4mg- take only 1/2 tab before breakfast -continue jardiance to 25mg daily. -continue januvia 100mg daily -intolerant to metformin -bring meter to all visits -call if any issues -fasting labs next visit 1. Diet: 3-4 carb servings per meal [...] 10/2019 5. Education performed during this visit: retirement diabetic complications discussed. , annual eye examinations [...] crestor 5mg -praluent/repatha not covered by insurance HTN -controlled -continue bisoprolol, losartan There are no Patient Instructions on file for this visit. Follow up: Return in about 3 months (around 10/20/2019). Discussed the nature of the disease including, [...] screenings, and immunizations on an annual basis. Total time of discussion was 10 minutes. Roc Tracey PA-C documented in this encounter Plan of Treatment Upcoming Encounters Date Type Department Care Team (Late st Contact Info) Description 03/13/2024 2:45 PM EST Office Visit [facility] [address] [place] [address] [place] [address] Pj Ace MD [address] [place] [address] documented as of this encounter Visit Diagnoses Diagnosis Controlled type 2 diabetes mellitus with hypoglycemia, without long-term current use of insulin- Primary Mixed hyperlipidemia Benign essential hypertension Essential hypertension, benign documented in this encounter Care Teams Dry Press Operator Relationship Specialty Start Date End Date Ev Augustin APRN [address] [place], [place] [id number] PCP - General Internal Medicine 04/12/18 08/18/21 documented as of this encounter
--- OUTSIDE RECORDS SUMMARY | 2024-02-20 09:11 | XMS_ITS | Encounter Summary ---
[facility] Address [address] [place] [address] Care Team Providers Care Car Body Inspector Name Role Phone Ev Augustin APRN Primary Care Provider +1 [phone] Reason for Visit * Reason Onset Date Comments KD/PHYSICIAN QUESTION 05/02/2019 Encounter Details Date Type Department Care Team (Late st Contact Info) Description 05/02/2019 Telephone [facility] [address] [place] [address] Ev Augustin, VASILE [address] [place] [address] KD/PHYSICIAN QUESTION Social History Tobacco Use Types Packs/Day [...] Telephone Encounter - Xiao Britton MA - 05/02/2019 2:03 PM EST Tried to call Alyson back from [facility], message stated number not in service * Telephone Encounter - Rebecca Best RegSched Rep - 05/02/2019 1:28 PM EST Alyson called from [facility] asking which physician would sign off on orders for Home Health for Benita Augustin? Please advise Alyson: [phone] documented in this encounter Plan of Treatment Upcoming Encounters Date Type Department Care Team (Late st Contact Info) Description 03/13/2024 2:45 PM EST Office Visit [facility] [address] [place] [address] [place] [address] Pj Ace MD [address] [facility] [address] [address] documented as of this encounter Visit Diagnoses Not on filedocumented in this encounter Care Teams Car Body Inspector Relationship Specialty Start Date End Date Ev Augustin, VASILE [address] [place] [address] PCP - General Internal Medicine 04/12/18 08/18/21 documented as of this encounter
--- OUTSIDE RECORDS SUMMARY | 2024-02-20 09:11 | XMS_ITS | Encounter Summary ---
[facility] [address] [place] [address] Care Team Providers Care Content Analyst Name Role Phone Ev Augustin APRN Primary Care Provider +1 -[phone] Encounter Details Date Type Department Care Team (Late st Contact Info) Description 05/07/2019 Telephone [facility] [address] [place] [address] Ev Augustin, VASILE [address] [place] [address] Social History Tobacco Use Types [...] * Telephone Encounter - Lida Al - 05/08/2019 3:38 PM EST Mirna with notified that she will need to be seen * Telephone Encounter - Sofia Arndt RegSched Rep - 05/07/2019 2:27 PM EST HOME HEALTH REP ([facility]) CALLING ON BEHALF OF PT. PT EXPERIENCING BLOOD IN URINE AND GENERAL FEELINGS OF BEING UNWELL. SHE WANTED TO DISCUSS MEDICATION THAT COULD BE CALLED IN FOR PT RELIEF. PLEASE RETURN CALL TO [phone]. documented in this encounter Plan of Treatment Upcoming Encounters Date Type Department Care Team (Late st Contact Info) Description 03/13/2024 2:45 PM EST Office Visit [facility] [address] [place] [address] [address] [place] [address] Pj Ace MD [address] [facility] [address] [address] documented as of this encounter Visit Diagnoses Not on filedocumented in this encounter Care Teams Content Analyst Relationship Specialty Start Date End Date Ev Augustin APRN [address] [place] [address] PCP - General Internal Medicine 04/12/18 08/18/21 documented as of this encounter
--- OUTSIDE RECORDS SUMMARY | 2024-02-20 09:11 | XMS_ITS | Encounter Summary ---
[facility] Address [address] [place] [address] Care Team Providers Care Marketing Strategy Manager Name Role Phone Luly Uribe APRN Primary Care Provider +1 [phone] Reason for Visit * Reason Comments Urinary Tract Infection Encounter Details Date Type Department Care Team ([facility] st Contact Info) Description 05/09/2019 10:00 AM EST Office Visit [facility] [address] [place] [address] Luly Uribe, VASILE [address] [place] [address] Acute cystitis with hematuria (Primary Dx) Social History Tobacco Use Types [...] Sign Reading Time Taken Comments Blood Pressure 130/70 05/09/2019 10:12 AM EST Pulse 78 05/09/2019 10:12 AM EST Temperature 36.9 ??C (98.5 ??F) 05/09/2019 10:[address] Respiratory Rate - - Oxygen Saturation 96% 05/09/2019 10:12 AM EST Inhaled Oxygen Concentration - - Weight 83.9 kg (185 lb) 05/09/2019 10:12 AM EST Height 154.9 cm (5' 1 ) 05/09/2019 10:12 AM EST Body Mass Index 34.96 05/09/2019 10:12 AM EST documented in this encounter Progress Notes * Luly Uribe APRN - 05/09/2019 10:00 AM ESTAddended by: LULY URIBE on: 05/09/2019 05:56 PM Modules accepted: Orders * Luly Uribe APRN - 05/09/2019 10:00 AM EST Chief Complaint Patient presents with ??? Urinary Tract Infection History of Present Illness 63 y.o.female presents for UTI. The patient describes dysuria milky bloody urine onset since back surgery apr 25, not improving with home care. Had goodman cath; Cath out this morning. Has not voided yet. Some right flank pain. No fever. The patient continues to hydrate well. Did urine at [facility] thru home health Review of Systems Constitutional: Negative for chills, fatigue and fever. Respiratory: Negative for shortness of breath. Cardiovascular: Negative for chest pain. Gastrointestinal: Positive for abdominal pain. Negative for constipation, diarrhea, nausea and vomiting. Genitourinary: Positive for dysuria, frequency and urgency. Negative for difficulty urinating, flank pain and hematuria. Musculoskeletal: Negative for myalgias. [facility] The following portions of the [...] hs prn, Disp: 180 tablet, Rfl: 3 VITALS: BP 130/70 Pulse 78 Temp 98.5 ??F (36.9 ??C) Ht 154.9 cm (61 ) Wt 83.9 kg (185 lb) LMP (LMP Unknown) SpO2 96% BMI 34.96 kg/m?? Physical Exam Constitutional: She appears well-developed and well-nourished. No distress. HENT: Mouth/Throat: Oropharynx is clear and moist. Pulmonary/Chest: Effort normal. Neurological: She is alert. Skin: Skin is warm and dry. Vitals reviewed. LABS Reviewed UA and culture 2--20 25 leuks 2+ bact > 100,000 gram negative rods Pending final ASSESSMENT/PLAN Gertrudis was seen today for urinary tract infection. Diagnoses and all orders for this visit: Acute cystitis with hematuria - Discontinue: sulfamethoxazole-trimethoprim (BACTRIM DS,SEPTRA DS) 800-160 MG per tablet; Take 1 tablet by mouth 2 (Two) Times a Day for 7 days. - nitrofurantoin, macrocrystal-monohydrate, (MACROBID) 100 MG capsule; Take 1 capsule by mouth Every 12 (Twelve) Hours for 7 days. Drink plenty water. If has bladder spasms can try OTC AZO; if uses AZO does turn urine orange. Complete all medication as instructed. Will follow up on urine culture and notify patient if antibiotic prescribed does not cover identified bacteria. If patient has worsening of symptoms or no improvement of fever >101.5 or clemente flank pain, pt should notify our office for reeval or seek emergency ca re. ADDENDUM: received urine culture results with sensitivity. Not sensitive to bactrim. Changed to macrobid. I called pt and updated tx plan. I discussed the patients findings and my recommendations with patient. Patient was encouraged to keep me informed of any acute changes, lack of improvement, or any new concerning symptoms. Patient voiced understanding of all instructions and denied further questions. FOLLOW-UP Return if symptoms worsen or fail to improve. Electronically signed by: Luly Uribe APRN 05/09/2019 EMR Dragon/Delivery Aide Disclaimer: Much of this encounter note is an electronic quality control inspector/translation of spoken language to printed text. The [...] Visit [facility] [address] [place] [address] Pj Ace MD [address] [facility] [address] [address] documented as of this encounter Visit Diagnoses Diagnosis Acute cystitis with hematuria- Primary documented in this encounter Care Teams Marketing Strategy Manager Relationship Specialty Start Date End Date Luly Uribe APRN [address] [place] [address] PCP - General Internal Medicine 04/12/18 08/18/21 documented as of this encounter
--- OUTSIDE RECORDS SUMMARY | 2024-02-20 09:12 | XMS_ITS | Encounter Summary ---
[facility] Address [address] [place] [address] Care Team Providers Care Fire Chief Name Role Phone Ev Augustin APRN Primary Care Provider [phone] [phone] Reason for Visit * Reason Comments Urinary Tract Infection Encounter Details Date Type Department Care Team ([facility] st Contact Info) Description 11/22/2018 5:15 PM EDT Office Visit [facility] INTER[facility] MED[facility]INE [address] [place] [address] Ev Augustin, VASILE [address] [place] [address] Acute cystitis without hematuria (Primary Dx); Chronic GERD; RLS (restless legs syndrome) Social History Tobacco [...] Sign Reading Time Taken Comments Blood Pressure 138/80 11/22/2018 4:18 PM EDT Pulse 90 11/22/2018 4:18 PM EDT Temperature 37 ??C (98.6 ??F) 11/22/2018 4:18 PM EDT Respiratory Rate - - Oxygen Saturation 95% 11/22/2018 4:18 PM EDT Inhaled Oxygen Concentration - - Weight 81.6 kg (180 lb) 11/22/2018 4:18 PM EDT Height 157.5 cm (5' 2 ) 11/22/2018 4:18 PM EDT Body Mass Index 32.92 11/22/2018 4:18 PM EDT documented in this encounter Progress Notes * Ev Augustin, EYELET RIVETER - 11/22/2018 5:15 PM EDT Chief Complaint Patient presents with ??? Urinary Tract Infection History of Present Illness 62 y.o.female presents for UTI symptoms. The patient describes dysuria with low back pain for a few days not improving with home care. Her back pain is low and spreads down thru legs feels like infection moving down thinks has a UTI. The patient reports associated urinary frequency, urgency. There is no associated gross hematuria or incontinence. The patient denies fever, urethral/urogenital discharge. The patient continues to hydratewell. Low back pain chronic several back surgeries vascillo pain mgt; but current pain feels different. GERD chronic onset years takes Prilosec needs refill. With intermittent reflux symptoms indigestion. No melena, hematochezia, or hematemesis. Restless leg syndrome follow-up chronic onset years. Pain in legs at nighttime with sleep intermittent. Takes Requip nightly does well for her symptoms. Needs refill. Review of Systems Constitutional: Negative for chills, fatigue and fever. Respiratory: Negative for shortness of breath. Cardiovascular: Negative for chest pain. Gastrointestinal: Positive for abdominal pain, GERD and indigestion. Negative for constipation, diarrhea, nausea and vomiting. Genitourinary: Positive for dysuria, frequency, pelvic pain and urgency. Negative for difficulty urinating, flank pain and hematuria. Musculoskeletal: Positive for arthralgias and back pain. Negative for myalgias. [facility] The following portions of the patient's history were reviewed and updated as appropriate: allergies, current medications, past family history, past medical history, past social history, past surgicalhistory and problem list. Past Medical History: Diagnosis Date ??? Anxiety ??? Benign essential hypertension ??? Cervical disc disorder ??? Chronic pain disorder ??? Colon polyps ??? Complication of device ??? Decreased libido ??? Dizziness ??? Encounter for long-term (current) [...] Past Surgical History: Procedure Laterality Date ??? BACK SURGERY Lower Back ??? BLADDER SURGERY ??? COLONOSCOPY Complete Colonoscopy ??? HYSTERECTOMY Total Abdominal Hysterectomy (Description: BSO) ??? OTHER SURGICAL HISTORY Elbow Surgery ??? OTHER SURGICAL HISTORY Spinal Sterotaxis Stimulation Of Cord ??? SPINAL CORD STIMULATOR IMPLANT 2015 replacement Allergies Allergen Reactions ??? Iain Inhibitors Cough ??? Amlodipine ??? Beta Adrenergic Blockers ??? Cyclobenzaprine ??? Hydrochlorothiazide ??? Hyzaar [Losartan Potassium-Hctz] ??? Latex ??? Losartan ??? Metformin ??? Penicillins ??? Pioglitazone ??? Spironolactone Family History Problem Relation Age of Onset ??? Hypertension Mother ??? Peripheral vascular disease Mother ??? Ulcers Mother ??? Lung disease Father ??? Diabetes Other type 2 Current Outpatient Medications: ??? albuterol (PROVENTIL HFA;VENTOLIN HFA) 108 (90 Base) MCG/ACT inhaler, Inhale 2 puffs Every 6 (Six) Hours As Needed for Wheezing., Disp: 1 inhaler, Rfl: 0 ??? baclofen (LIORESAL) 10 MG tablet, Take 1/2 to 1 tab po Qd to bid prn, Disp: 180 tablet, Rfl: 1 ??? bisoprolol (ZEBeta) 5 MG tablet, Take 5 mg by mouth Daily., Disp: , Rfl: ??? Desvenlafaxine Succinate ER (PRISTIQ) 25 MG tablet sustained-release 24 hour, Take 1 tablet by mouth Daily., Disp: 30 tablet, Rfl: 0 ??? Empagliflozin (JARDIANCE) 25 MG tablet, Take [...] 1 po qd before a meal, Disp: 30 tablet, Rfl: 6 ??? Liniments (SALONPAS) pads, Apply topically. prn, Disp: , Rfl: ??? losartan (COZAAR) 100 MG tablet, Take 100 mg by mouth Daily., Disp: , Rfl: ??? lubiprostone (AMITIZA) 24 MCG capsule, Take 1 capsule by mouth 2 (Two) Times a Day With Meals.,Disp: 180 capsule, Rfl: 1 ? ? metoclopramide (REGLAN) 10 MG tablet, Take 1 tablet by mouth 4 (Four) Times a Day Before Meals & at Bedtime As Needed (for nausea or vomiting)., Disp: 40 tablet, Rfl: 2 ??? NIFEdipine CC (ADALAT CC) 90 MG 24 hr tablet, Take 60 mg by mouth Daily., Disp: , Rfl: ??? omeprazole (priLOSEC) 40 MG capsule, TAKE 1 CAPSULE EVERY MORNING. TAKE FIRST THING IN THE MORNING ON AN EMPTY STOMACH. WAIT AT LEAST 30 MINUTES TO 1 HOUR BEFORE EATING, Disp: 30 capsule, Rfl: 2 ??? rOPINIRole (REQUIP) 0.5 MG tablet, Take 0.5 tablets by mouth Every Night. Take 1 hour before bedtime., Disp: 30 tablet, Rfl: 5 ??? rosuvastatin (CRESTOR) 5 MG tablet, Take 1 tablet by mouth Every Night., Disp: 90 tablet, Rfl: 1 ??? SITagliptin (JANUVIA) 100 MG tablet, Take [...] po hs prn, Disp: 180 tablet, Rfl: 2 VITALS: BP 138/80 Pulse 90 Temp 98.6 ??F (37 ??C) Ht 157.5 cm (62 ) Wt 81.6 kg (180 lb) LMP (LMP Unknown) SpO2 95% BMI 32.92 kg/m?? Physical Exam Constitutional: She is oriented to person, place, and time. She appears well- developed and well-nourished. No distress. Cardiovascular: Normal rate. Pulmonary/Chest: Effort normal. Abdominal: There is no tenderness. There is no CVA tenderness. Neurological: She is alert and oriented to person, place, and time. Skin: Skin is warm and dry. No rash noted. Vitals reviewed. LABS Results for orders placed or performed in visit on 11/22/18 Urine Culture - Urine, Urine, Clean Catch Result Value Ref Range Urine Culture No growth POCT urinalysis dipstick, automated Result Value Ref Range Color Yellow Yellow, Straw, Dark Yellow, Kenia Clarity, UA Clear Clear Specific [place] 1.020 1.005 - 1.030 pH, Urine 5.0 5.0 - 8.0 Leukocytes 500 Raghu/ul (A) Negative Nitrite, UA Negative Negative Protein, POC Negative Negative mg/dL Glucose, UA >=1000 mg/dL (3+) (A) Negative, 1000 mg/dL (3+) mg/dL Ketones, UA Negative Negative Urobilinogen, UA Normal Normal Bilirubin Negative Negative Blood, UA Negative Negative ASSESSMENT/PLAN Gertrudis was seen today for urinary tract infection. Diagnoses and all orders for this visit: Acute cystitis without hematuria - POCT urinalysis dipstick, automated - nitrofurantoin, macrocrystal-monohydrate, (MACROBID) 100 MG capsule; Take 1 capsule by mouth Every 12 (Twelve) Hours for 7 days. - Urine Culture - Urine, Urine, Clean Catch Chronic GERD - omeprazole (priLOSEC) 40 MG capsule; Take 1 capsule by mouth Daily. - HOB elevated - Weight loss - Avoid late night meals - Avoid excessive caffeine - Avoid excessive carbonated beverages - Report any dysphagia or odynophagia RLS (restless legs syndrome) - rOPINIRole (REQUIP) 0.5 MG tablet; Take 1 tablet by mouth Every Night. Take 1 hour before bedtime. I discussed the patients findings and my recommendations with patient. Patient was encouraged to keep me informed of any acute changes, lack of improvement, or any new concerning symptoms. Patient voiced understanding of all instructions and denied further questions. FOLLOW-UP Return if symptoms worsen or fail to improve. Fu appt scheduled in Apr Electronically signed by: Ev Auugstin APRN 11/22/2018 documented in this encounter Plan of Treatment Upcoming Encounters Date Type Department Care Team (Late st Contact Info) Description 03/13/2024 2:45 PM EST Office Visit [facility] C[facility] [address] [place] [address] [place] [address] Pj Ace MD [address] [facility] [address] [facility] [address] [place] [address] documented as of this encounter Procedures Procedure Name Priority Date/Time Associated Diagnosis Comments URINE CULTURE Routine 11/22/2018 4:49 PM EDT Acute cystitis without hematuria POCT URINALYSIS DIPSTICK, AUTOMATED Routine 11/22/2018 4:44 PM EDT Acute cystitis without hematuria documented in this encounter Results * Urine Culture - Urine, Urine, Clean Catch (11/22/2018 4:49 PM EDT) Urine Culture No growth LUIS ALBERTO 11/24/2018 3:27 AM EDT [facility] Urine Urine specimen collection, clean catch / Unknown Collection / Unknown 11/22/2018 4:49 PM EDT 11/22/2018 4:49 PM EDT Ev Augustin EYELET RIVETER MICROBIOLOGY - GENERAL OR DERABLES Final Result Performing Organization Address City/[facility]/ZIP Co de Phone Number [facility]
[address] [place] [address], [place] [phone] * (ABNORMAL) POCT urinalysis dipstick, automated (11/22/2018 4:44 PM EDT) Color Yellow Yellow, Straw, Dark Yellow, Kenia [facility] Clarity, UA Clear Clear [facility] Specific [place] 1.020 1.005 - 1.030 [facility] pH, Urine 5.0 5.0 - 8.0 [facility] Leukocytes 500 Raghu/ul(A) Negative [facility] Nitrite, UA Negative Negative [facility] Protein, POC Negative Negative mg/dL [facility] Glucose, UA >=1000 mg/dL (3+)(A) Negative, 1000 mg/dL (3+) mg/dL [facility] Ketones, UA Negative Negative [facility] Urobilinogen, UA Normal Normal [facility] Bilirubin Negative Negative [facility] Blood, UA Negative Negative [facility] Urine 11/22/2018 4:44 PM EDT Ev Augustin EYELET RIVETER POINT OF CARE TEST ORDERA BLES Final Result Performing Organization Address [facility] Co de Phone Number [facility]
[address] [place] [address], [place] [phone] documented in this encounter Visit Diagnoses Diagnosis Acute cystitis without hematuria- Primary Chronic GERD RLS (restless legs syndrome) Restless legs syndrome (RLS) documented in this encounter Care Teams Fire Chief Relationship Specialty Start Date End Date Ev Augustin APRN [address] [place] [address] PCP - General Internal Medicine 04/12/18 08/18/21 documented as of this encounter
--- OUTSIDE RECORDS SUMMARY | 2024-02-20 09:12 | XMS_ITS | Encounter Summary ---
[facility] Address [address] [place] [address] Care Team Providers Care Front Office Coordinator Name Role Phone Ev Augustin PALLET STONE INSERTER Primary Care Provider [phone] [phone] Encounter Details Date Type Department Care Team (Late st Contact Info) Description 03/05/2019 Telephone [facility] INTERNAL MEDICINE [address] [place] [address] Ev Augustin, PALLET STONE INSERTER [address] [place], [place] [id number] Social History Tobacco Use Types Packs/Day Years [...] Telephone Encounter - Ambar Morrow MA - 03/05/2019 1:56 PM EST Correct RX was sent to [facility] * Telephone Encounter - Yoli Mccartney RegSched Rep - 03/05/2019 10:57 AM EST PT CALLED STATING THAT [facility] REFILLED THE PRILOSEC BUT ONLY 20 MG AND PT STATES SHE IS TOHAVE 40 MG. PLEASE ADVISE THANKS documented in this encounter Plan of Treatment Upcoming Encounters Date Type Department Care Team (Late st Contact Info) Description 03/13/2024 2:45 PM EST Office Visit [facility] CARDIOLOGY [address] [place] [address] Pj Ace MD [address] [facility] [address] [place] [address] documented as of this encounter Visit Diagnoses Diagnosis Chronic GERD documented in this encounter Care Teams Front Office Coordinator Relationship Specialty Start Date End Date Ev Augustin, PALLET STONE INSERTER [address] [place] [address] PCP - General Internal Medicine 04/12/18 08/18/21 documented as of this encounter
--- OUTSIDE RECORDS SUMMARY | 2024-02-20 09:12 | XMS_ITS | Encounter Summary ---
[facility] [address] [place] [address] Care Team Providers Care Fitness Specialist Name Role Phone Ev Augustin APRN Primary Care Provider [phone] [phone] Reason for Visit * Reason Onset Date Comments Med Refill 12/16/2018 Encounter Details Date Type Department Care Team (Late st Contact Info) Description 12/16/2018 Refill [facility] [address] [address] Bebeto Adams MD [address] [place] [address] Meningeal adhesions/lumbar arachnoiditis; Postlaminectomy syndrome of lumbar region; Herniated lumbar [...] encounter Miscellaneous Notes * Telephone Encounter - Kandi Myrick MA - 12/16/2018 2:54 PM EDT [facility] only filled 7 day supply and needing new Rx to refill the full prescription documented in this encounter Plan of Treatment Upcoming Encounters Date Type Department Care Team (Late st Contact Info) Description 03/13/2024 2:45 PM EST Office Visit [facility] C[facility] [address] [place] [address] [address] [place] [address] Pj Ace MD [address] [facility] [address] [place] [address] documented as of this encounter Visit Diagnoses Diagnosis Meningeal adhesions/lumbar arachnoiditis Postlaminectomy syndrome of lumbar region Postlaminectomy syndrome, lumbar region Herniated lumbar intervertebral disc Displacement of lumbar intervertebral disc without myelopathy documented in this encounter Care Teams Fitness Specialist Relationship Specialty Start Date End Date Ev Augustin, VASILE [address] [place] [address] PCP - General Internal Medicine 04/12/18 08/18/21 documented as of this encounter
--- OUTSIDE RECORDS SUMMARY | 2024-02-20 09:12 | XMS_ITS | Encounter Summary ---
[facility] Address [address] [place] [address] Care Team Providers Care Consumer Studies Professor Name Role Phone Ev Augustin APRN Primary Care Provider [phone] [phone] Encounter Details Date Type Department Care Team (Late st Contact Info) Description 10/21/2018 Telephone [facility] INTERNAL MEDICINE [address] [place] [address] Roc Tracey PA-C [address] [place] [address] Social History Tobacco Use Types Packs/Day [...] Telephone Encounter - Mitzi Colón MA - 10/21/2018 9:55 AM EDT Called pt back and she voiced understanding * Telephone Encounter - Ev Augustin APRN - 10/21/2018 9:45 AM EDT She can still get her diabetic eye exam. With that type eye exam we are typically looking for penitentiary side effects of diabetes. Recent missed doses would not grossly affect exam * Telephone Encounter - Mitzi Colón MA - 10/21/2018 8:25 AM EDT Pt called about the Glimpiride that you rx 10/11/18 she has not received the medicine I stated it was sent to the [facility] and she said she was not told that, because her other two medicines were [facility]to [facility] (which she states she has not received them as well) she will call [facility] but she was wondering where she has not started any of this medicine if she could reschedule her eye exam, she wants to know if not taking this medicine if not taking the medicine if it would effect her eye exam. documented in this encounter Plan of Treatment Upcoming Encounters Date Type Department Care Team (Late st Contact Info) Description 03/13/2024 2:45 PM EST Office Visit [facility] [address] [place] [address] Pj Ace MD [address] [facility] [address] [address] documented as of this encounter Visit Diagnoses Not on filedocumented in this encounter Care Teams Consumer Studies Professor Relationship Specialty Start Date End Date Ev Augustin APRN [address] [place] [address] PCP - General Internal Medicine 04/12/18 08/18/21 documented as of this encounter
--- OUTSIDE RECORDS SUMMARY | 2024-02-20 09:12 | XMS_ITS | Encounter Summary ---
[facility] [address] [place] [id number] Care Team Providers Care Detention Worker Name Role Phone Ev Augustin APRN Primary Care Provider [phone] [phone] Reason for Visit * Reason Onset Date Comments Amitiza 01/13/2019 Encounter Details Date Type Department Care Team (Late st Contact Info) Description 01/13/2019 Telephone [facility] [address] [place] [phone] Paulette Elias RegSched Rep Amitiza Social History Tobacco Use Types Packs/Day Years [...] encounter Miscellaneous Notes * Telephone Encounter - Slime Hammer APRN - 01/13/2019 1:48 PM EDT rx sent * Telephone Encounter - Paulette Elias - 01/13/2019 1:47 PM EDT Pt called needing RX of Amitiza. Verbal to Slime- Rx will be called today. documented in this encounter Plan of Treatment Upcoming Encounters Date Type Department Care Team (Late st Contact Info) Description 03/13/2024 2:45 PM EST Office Visit [facility] [address] [place] [address] [address] [place] [address] Pj Ace MD [address] [facility] [address] [place] [address] documented as of this encounter Visit Diagnoses Diagnosis Chronic constipation Unspecified constipation documented in this encounter Care Teams Detention Worker Relationship Specialty Start Date End Date Ev Augustin, INSURANCE PLAN SPECIALIST [address] [place] [address] PCP - General Internal Medicine 04/12/18 08/18/21 documented as of this encounter
--- OUTSIDE RECORDS SUMMARY | 2024-02-20 09:12 | XMS_ITS | Encounter Summary ---
[facility] [address] [place] [address] Care Team Providers Care Software Recruiter Name Role Phone Ev Augustin APRN Primary Care Provider [phone] [phone] Reason for Visit * Reason Onset Date Comments Med Refill 01/01/2019 Encounter Details Date Type Department Care Team (Late st Contact Info) Description 01/01/2019 Refill [facility] INTERNAL MEDICINE [address] [place] [address] Roc Tracey PA-C [address] [place] [address] Chronic constipation Social History Tobacco Use Types Packs/Day [...] Telephone Encounter - Ambar Morrow MA - 01/01/2019 3:52 PM EDT Mitzi, will you make sure Benita sees this? Roc routed it to her last week. * Telephone Encounter - Roc Tracey PA-C - 01/01/2019 3:19 PM EDT Should go to Benita Augustin. I routed the message to her last week but she may have not seen it. * Telephone Encounter - Ambar Morrow MA - 01/01/2019 1:14 PM EDT Is this something you are willing to prescribe or Benita Augustin? * Telephone Encounter - Shikha Neumann - 01/01/2019 12:47 PM EDT Patient would like to have her medication sent to the local pharm that is in her chart. She states that it was suppose to be sent to the pharm last week. If there is any questions or concerns the patient can be reached at [phone] documented in this encounter Plan of Treatment Upcoming Encounters Date Type Department Care Team (Late st Contact Info) Description 03/13/2024 2:45 PM EST Office Visit [facility] [address] [place] [address] Pj Ace MD [address] [facility] [address] [facility] [address] [place] [address] documented as of this encounter Visit Diagnoses Diagnosis Chronic constipation Unspecified constipation documented in this encounter Care Teams Software Recruiter Relationship Specialty Start Date End Date Ev Augustin APRN [address] [place] [address] PCP - General Internal Medicine 04/12/18 08/18/21 documented as of this encounter
--- OUTSIDE RECORDS SUMMARY | 2024-02-20 09:12 | XMS_ITS | Encounter Summary ---
[facility] Address [address] [place] [address] Care Team Providers Care Surgical Services Manager Name Role Phone Ev Augustin APRN Primary Care Provider [phone] [phone] Reason for Visit * Reason Comments Follow-up DM 2 Encounter Details Date Type Department Care Team (Late st Contact Info) Description 04/18/2019 12:00 PM EST Office Visit [facility] [address] [facility] [place] [address] [place] [phone] Roc Tracey PA-C [address] [facility] [place] [address] [place] [address] Uncontrolled type 2 diabetes mellitus with hyperglycemia, without long-term current use of insulin (Primary [...] Reading Time Taken Comments Blood Pressure 130/80 04/18/2019 11:46 AM EST Pulse 86 04/18/2019 11:46 AM EST Temperature - - Respiratory Rate - - Oxygen Saturation 98% 04/18/2019 11:46 AM EST Inhaled Oxygen Concentration - - Weight 81.7 kg (180 lb 3.2 oz) 04/18/2019 11:46 AM EST Height - - Body Mass Index 34.05 12/20/2018 10:21 AM EDT documented in this encounter Progress Notes * Roc Tracey PA-C - 04/18/2019 12:00 PM EST Chief Complaint F/u for Diabetes Mellitus. JONA Gonzalez is a 63 y.o. female with chronic back pain and HTN- on multiple antihypertensives followed by cardiology in [place], who is here today for f/u of Diabetes Mellitus type 2. The initial diagnosis of diabetes was made approximately 2015. 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 A1C- 6.8 (04/18/2019), 7.4 (01/13/19), 7.4 (10/11/18), 7.6 (07/15/18), 7.2 (04/08/18), 7.7 (12/14/17), 6.7 (09/12/17), 8.9 (05/2017) Diabetic complications: gastroparesis followed by GI at [facility] Eye exam current (within one [...] controlled glucose better), actos Diabetic Monitoring - meter downloaded and reviewed- inaccurate date and time on meter, she only checks when doesn't feel well, readings range from 130s to 200s, no hypoglycemia Nutrition: Current diet: improving diet last 2 [...] deficiency Medications Current Outpatient Medications: ??? albuterol (PROVENTIL HFA;VENTOLIN [...] 90 capsule, Rfl: 3 ??? rOPINIRole (REQUIP) 0.5 MG tablet, Take 1 tablet by mouth Every Night. Take 1 hour before bedtime., Disp: 90 tablet, Rfl: 1 ??? SITagliptin [...] hs prn, Disp: 180 tablet, Rfl: 2 Review of Systems Review of Systems Constitutional: Positive for fatigue. Negative for chills, fever and unexpected weight change. HENT: Negative for ear pain, hearing loss, nosebleeds, rhinorrhea and sore throat. Eyes: Positive for visual disturbance. Negative for pain, discharge, redness and itching. Respiratory: Negative for cough, shortness of breath and wheezing. Cardiovascular: Positive for leg swelling. Negative for chest pain and palpitations. Gastrointestinal: Negative for abdominal pain, blood in stool, constipation and diarrhea. Endocrine: Negative for cold intolerance, heat intolerance and polydipsia. Genitourinary: Negative for dysuria, frequency, hematuria, pelvic pain, vaginal bleeding and vaginal discharge. Musculoskeletal: Positive for back pain. Negative for arthralgias, gait problem, joint swelling andmyalgias. Skin: Negative for rash. Hair loss Allergic/Immunologic: Negative. Neurological: Negative for dizziness, syncope, weakness, numbness and headaches. Hematological: Negative for adenopathy. Does not bruise/bleed easily. Psychiatric/Behavioral: Negative for sleep disturbance and suicidal ideas. The patient is not nervous/anxious. Physical Exam BP 130/80 Pulse 86 Wt 81.7 kg (180 lb 3.2 oz) LMP (LMP Unknown) SpO2 98% BMI 34.05 kg/m??Body mass index is 34.05 kg/m??. Physical Exam Constitutional: She is oriented [...] speech is normal and behavior is normal. Thoughtcontent normal. Labs and Imaging Lab Results Component Value Date HGBA1C 6.8 04/18/2019 HGBA1C 7.4 01/13/2019 HGBA1C 7.4 10/11/2018 Office Visit on 04/18/2019 Component Date Value Ref Range Status ??? Glucose 04/18/2019 158* 70 - 130 mg/dL Final ??? Hemoglobin A1C 04/18/2019 6.8 % Final Assessment / Plan Gertrudis was seen today for follow-up. Diagnoses and all orders for this visit: Uncontrolled type 2 diabetes mellitus with hyperglycemia, without long-term current use of insulin ([facility]) - POC Glucose Fingerstick - POC Glycosylated Hemoglobin (Hb A1C) - glimepiride (AMARYL) 4 MG tablet; Take 1 po qd before a meal - Empagliflozin (JARDIANCE) 25 MG tablet; Take 25 mg by mouth Daily. - SITagliptin (JANUVIA) 100 MG tablet; Take 1 tablet by mouth Daily. Mixed hyperlipidemia Benign essential hypertension Diabetes Mellitus 2 is under improved control. -A1c 6.8, down from 7.4 last visit, discussed goal <7 -continue jardiance to 25mg daily. -continue januvia 100mg daily -continue glimepiride 4mg daily- discussed she must take this medication AC to avoid hypoglycemia -intolerant to metformin -bring meter to all [...] 10/2019 5. 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 , annual eye examinations [...] up: Return in about 3 months (around 07/18/2019). Discussed the nature of the disease including, [...] Visit [facility] [address] [place] [address] [place] [address] Pj Ace MD [address] [facility] [address] [address] documented as of this encounter Procedures Procedure Name Priority Date/Time Associated Diagnosis Comments POCT GLYCOSYLATED HEMOGLOBIN (HGB A1C) Routine 04/18/2019 12:13 PM EST Uncontrolled type 2 diabetes mellitus with hyperglycemia, without long-term current use of insulin POCT GLUCOSE FINGERSTICK Routine 04/18/2019 12:13 PM EST Uncontrolled type 2 diabetes mellitus with hyperglycemia, without long-term current use of insulin documented in this encounter Results * POC Glycosylated Hemoglobin (Hb A1C) (04/18/2019 12:13 PM EST) Hemoglobin A1C 6.8 % [facility] Blood 04/18/2019 12:1 3 PM EST us Kalaynidrevangelista The Pointezevic PA-C POINT OF CARE TEST ORDERAB LES Final Result [facility]
[address] [place] [address], [place] [phone] * (ABNORMAL) POC Glucose Fingerstick (04/18/2019 12:13 PM EST) Glucose 158(A) 70 - 130 mg/dL [facility] Blood 04/18/2019 12:1 3 PM EST KalyaniSensipassic PA-C POINT OF CARE TEST ORDERAB LES Final Result Performing Organization Address City/[facility] Co de Phone Number [facility]
[address] [place] [address], [place] [phone] documented in this encounter Visit Diagnoses Diagnosis Uncontrolled type 2 diabetes mellitus with hyperglycemia, without long-term current use of insulin- Primary Mixed hyperlipidemia Benign essential hypertension Essential hypertension, benign documented in this encounter Care Teams Surgical Services Manager Relationship Specialty Start Date End Date Ev Augustin, MERCHANDISE CARRIER [address] [place] [address] PCP - General Internal Medicine 04/12/18 08/18/21 documented as of this encounter
--- OUTSIDE RECORDS SUMMARY | 2024-02-20 09:12 | XMS_ITS | Encounter Summary ---
[facility] [address] [place] [address] Care Team Providers Care Rn Critical Care Name Role Phone Ev Augustin SPEECH PATHOLOGIST ASSISTANT Primary Care Provider [phone] Reason for Referral * (Routine) - Closed Specialty Diagnoses / Procedures Referred By Yodit salinas Referred To Contact Radiology Diagnoses Abnormal mammogram Procedures Mammo diagnostic digital tomosynthesis right w Ev Amaro, SPEECH PATHOLOGIST ASSISTANT [address] [place] [address] Phone: tel: fax: Referral ID Status Reason Start Date Expiration Date Visits Re quested Visits Authorized [id number] Closed 01/14/2019 01/14/2020 1 1 Reason for Visit * (Routine) - Closed Specialty Diagnoses / Procedures Referred By Yodit aslinas Referred To Contact Radiology Diagnoses Abnormal mammogram Procedures Mammo diagnostic digital tomosynthesis right w CATHY Ev Augustin, SPEECH PATHOLOGIST ASSISTANT [address] [place] [address] Phone: tel: fax: Referral ID Status Reason Start Date Expiration Date Visits Re quested Visits Authorized [id number] Closed 01/14/2019 01/14/2020 1 1 Encounter Details Date Type Department Care Team (Latest Contact Info) Description 01/14/2019 1:47 PM EDT - 01/14/2019 11:59 PM EDT Hospital Encounter [address] [place] [address] Abnormal mammogram Discharge Disposition: Home or Self [...] this encounter Medications at Time of Discharge furosemide (LASIX) 20 MG tablet Take 1 tablet by mouth As Needed. albuterol (PROVENTIL HFA;VENTOLIN HFA) 108 (90 Base) MCG/ACT inhalerIndications: Bronchitis Inhale 2 puffs Every 6 (Six) Hours As Needed for Wheezing. 1 inhaler 7 04/22/19 20 baclofen (LIORESAL) 10 MG tablet Take 1/2 to 1 tab po Qd to bid prn 180 tablet 1 9 04/22/19 20 bisoprolol (ZEBeta) 5 MG tablet Take 5 mg by mouth Daily. 09/06/19 22 Desvenlafaxine Succinate ER (PRISTIQ) 25 MG tablet sustained-release 24 hourIndications:Anx iety and depression Take 1 tablet by mouth Daily. 30 tablet 9 04/22/19 20 Empagliflozin (JARDIANCE) 25 MG tabletIndications:U ncontrolled type 2 diabetes mellitus with hyperglycemia, without long-term current use of insulin Take 25 mg by mouth Daily. 90 tablet 1 9 02/04/20 19 estradiol (ESTRACE VAGINAL) 0.1 MG/GM vaginal creamIndications:Va ginal atrophy Insert 2 g into the vagina 1 (One) Time Per Week. 42.5 g 5 7 04/22/19 20 glimepiride (AMARYL) 4 MG tabletIndications:U ncontrolled type 2 diabetes mellitus with hyperglycemia, without long-term current use of insulin Take 1 po qd before a meal 30 tablet 6 9 04/18/19 20 Liniments (SALONPAS) pads Apply topically. prn 05/26/19 20 losartan (COZAAR) 100 MG tablet Take 100 mg by mouth Daily. 11/10/19 22 lubiprostone (AMITIZA) 24 MCG capsuleIndications: Chronic constipation Take 1 capsule by mouth 2 (Two) Times a Day With Meals. 180 capsule 1 9 10/20/19 20 metoclopramide (REGLAN) 10 MG tabletIndications:G astroparesis Take 1 tablet by mouth 4 (Four) Times a Day Before Meals & at Bedtime As Needed (for nausea or vomiting). 40 tablet 2 9 04/18/19 20 NIFEdipine CC (ADALAT CC) 90 MG 24 hr tablet Take 60 mg by mouth Daily. 8 12/30/19 21 omeprazole (priLOSEC) 40 MG capsuleIndications: Chronic GERD Take 1 capsule by mouth Daily. 90 capsule 3 9 03/05/20 19 rOPINIRole (REQUIP) 0.5 MG tabletIndications:R LS (restless legs syndrome) Take 1 tablet by mouth Every Night. Take 1 hour before bedtime. 90 tablet 1 9 04/22/19 20 SITagliptin (JANUVIA) 100 MG tabletIndications:U ncontrolled type 2 diabetes mellitus with hyperglycemia, without long-term current use of insulin Take 1 tablet by mouth Daily. 90 tablet 1 9 04/18/19 20 topiramate (TOPAMAX) 50 MG tablet TAKE ONE TABLET BY MOUTH TWICE DAILY 180 tablet 6 10/20/19 20 traMADol (ULTRAM) 50 MG tabletIndications:M eningeal adhesions,Postlamin ectomy syndrome of lumbar region,Herniated lumbar intervertebral disc TAKE 1 TABLET PO TID PRN FOR SEVERE BREAKTHROUGH PAIN 270 tablet 9 10/20/19 20 traZODone (DESYREL) 50 MG tablet Take 1 to 2 tabs po hs prn 180 tablet 2 9 04/22/19 20 documented as of this encounter Plan of Treatment Upcoming Encounters Date Type Department Care Team (Late st Contact Info) Description 03/13/2024 2:45 PM EST Office Visit [facility] [address] [facility] [place] [address] Pj Ace MD [address] [place] [address] documented as of this encounter Procedures Procedure Name Priority Date/Time Associated Diagnosis Comments MAMMO DIAGNOSTIC DIGITAL TOMOSYNTHESIS RIGHT W CAD Routine 01/14/2019 2:11 PM EDT Abnormal mammogram documented in this encounter Results * Mammo Diagnostic Digital Tomosynthesis Right With CAD (01/14/2019 2:11 PM EDT) Anatomical Region Laterality Modality Breast Right Mammography 01/14/2019 3:06 PM EDT Impressions 01/15/2019 8:33 AM EDT Areas of nodularity noted mammographically do overall improved with additional imaging evaluation and are felt to most likely correlate to some small cysts noted sonographically. ACR BI-RADS CATEGORY: ??2, BENIGN. RECOMMENDATION: ??Recommend the patient continue with annual screening mammography. She will be due in one year for her next screening exam. CAD was utilized. The standard false-negative rate of mammography is between 10% and 25%. Complex patterns or increased breast density will markedly elevate the false-negative rate of mammography. ?? A letter, in lay terminology, with the results of this exam was given to the patient at the time of the visit. This report was finalized on 01/15/2019 8:[address] Madelaine Stephenson MD. Narrative 01/15/2019 8:33 AM EDT RIGHT DIAGNOSTIC MAMMOGRAM WITH TOMOSYNTHESIS AND A FOCUSED RIGHT BREAST ULTRASOUND-01/14/2019: CLINICAL INDICATION: ??63-year-old patient recalled from screening study done on 01/03/2019 for further evaluation of the right breast. TECHNIQUE: 2-D/3-D combination right CC and MLO focal compression views were performed as well as a right ML view. Also, focused ultrasound imaging of the right breast was performed. COMPARISON: 01/03/2019, 10/10/2012. FINDINGS: Initially, ultrasound imaging of the 12:00 distribution of the right breast was performed including the upper inner quadrant. In the 12:00 position, 4-5 cm from the nipple, there is a cluster of microcysts measuring up to 0.5 cm in size. In the 2:30 position, 2-3 cm from the nipple, there is a cyst measuring 0.4 cm in size. Additional focal compression imaging of the breast was also performed for further evaluation. The nodular asymmetry noted in the slight lateral breast improved with focal compression imaging. There is a persistent nodular asymmetry in the slight superior breast on the MLO view. This is felt to move more inferiorly on the ML view and actually correlate to a nodular asymmetry located slightly medial. These mammographic areas of nodularity are felt to likely correlate to the cystic areas noted sonographically. Mammographically there is also a stable lymph node in the upper outer quadrant and a stable asymmetry in the lateral breast. us Madelaine Stephenson MD IMG MAMMOGRAPHY ORDERABLES Fi nal Result documented in this encounter Visit Diagnoses Diagnosis Abnormal mammogram Abnormal mammogram, unspecified documented in this encounter Care Teams Rn Critical Care Relationship Specialty Start Date End Date Ev Augustin APRN [address] [place] [address] PCP - General Internal Medicine 04/12/18 08/18/21 documented as of this encounter
--- OUTSIDE RECORDS SUMMARY | 2024-02-20 09:12 | XMS_ITS | Encounter Summary ---
[facility] Address [address] [place] [address] Care Team Providers Care Can Doffer Name Role Phone Ev Augustin APRN Primary Care Provider [phone] [phone] Encounter Details Date Type Department Care Team (Late st Contact Info) Description 12/20/[address] [facility] [address] [place] [address] Ev Augustin, VASILE [address] [place] [address] Social History Tobacco Use Types [...] encounter Miscellaneous Notes * Telephone Encounter - Mtizi Colón MA - 12/20/2018 3:48 PM EDT Called pt and she sees for her sleep apena and she is currently in [place] but she statesshe gets back she will make an apt to see him, * Telephone Encounter - Mitzi Colón MA - 12/20/2018 3:48 PM EDT ----- Message from Ev Augustin APRN sent at 12/20/2018 8:36 AM EDT ----- Call pt and ask when is last time she has been seen for obstructive sleep apnea? Who does she see? Hematology recommended she have FU for cpap machine eval. Let me know please. documented in this encounter Plan of Treatment Upcoming Encounters Date Type Department Care Team (Late st Contact Info) Description 03/13/2024 2:45 PM EST Office Visit [facility] [address] [place] [address] [place] [address] Pj Ace MD [address] [facility] [address] [address] documented as of this encounter Visit Diagnoses Not on filedocumented in this encounter Care Teams Can Doffer Relationship Specialty Start Date End Date Ev Augustin APRN [address] [place] [address] PCP - General Internal Medicine 04/12/18 08/18/21 documented as of this encounter
--- OUTSIDE RECORDS SUMMARY | 2024-02-20 09:12 | XMS_ITS | Encounter Summary ---
[facility] [address] [place] [address] Care Team Providers Care Sand Conditioner Name Role Phone Ev Augustin APRN Primary Care Provider [phone] [phone] Encounter Details Date Type Department Care Team (Late Contact Info) Description 10/14/2018 10:30 AM EDT Lab [facility] [address] [place] [address] Serum calcium elevated; Polycythemia; Elevated alkaline phosphatase level Social History Tobacco Use Types Packs/Day Years [...] Visit [facility] [address] [address] [place] [address] [place] [address] Pj Ace MD [address] [facility] [address] [facility] [address] [place] [address] documented as of this encounter Procedures Procedure Name Priority Date/Time Associated Diagnosis Comments ERYTHROPOIETIN Routine 10/14/2018 10:35 AM EDT Polycythemia ALKALINE PHOSPHATASE, ISOENZYMES Routine 10/14/2018 10:35 AM EDT Elevated alkaline phosphatase level PTH, INTACT Routine 10/14/2018 10:35 AM EDT Serum calcium elevated documented in this encounter Results * (ABNORMAL) Alkaline Phosphatase, Isoenzymes (10/14/2018 10:35 AM EDT) Alkaline Phosphatase 161(H) 39 - 117 IU/L 10/16/2018 5:07 PM EDT [facility] Liver Fraction: 50 18 - 85 % 9 5:07 PM EDT [facility] Bone Fraction: 44 14 - 68 % 10/16/2018 5:07 PM EDT [facility] Intestinal Frac.: 6 0 - 18 % 10/16/2018 5:07 PM EDT [facility] Blood Venipuncture / Unknown 10/14/2018 10:35 AM EDT 10/14/2018 10:35 AM EDT Narrative [facility] - 10/16/2018 5:07 PM EDT Performed at: ??01 - [facility] [address] ??[id number] Mediator: Malik Hall PhD, Phone: ??[phone] Ev Augustin INTERNET MARKETING INTERN LAB BLOOD ORDERABLES Rosie l Result [facility] [address] [place] [address], * (ABNORMAL) Erythropoietin (10/14/2018 10:35 AM EDT) Erythropoietin 25.2(H) 2.6 - 18.5 mIU/mL 10/15/2018 3:08 PM EDT [facility] Comment: Maria M [employer] DxI 800 Immunoassay System Values obtained with different assay methods or kits cannot be used interchangeably. Results cannot be interpreted as absolute evidence of the presence or absence of malignant disease. Blood Venipuncture / Unknown 10/14/2018 10:35 AM EDT 10/14/2018 10:35 AM EDT Narrative [facility] - 10/15/2018 3:08 PM EDT Performed at: ??01 - [facility] [place] [id number] [place], [place] ??[id number] Mediator: Malik Hall PhD, Phone: ??[phone] Ev Augustin INTERNET MARKETING INTERN LAB BLOOD ORDERABLES Rosie l Result [facility] [address] [place] [address], * PTH, Intact (10/14/2018 10:35 AM EDT) PTH, Intact 30.4 15.0 - 65.0 pg/mL 10/14/2018 7:45 PM EDT [facility] Blood Venipuncture / Unknown 10/14/2018 10:35 AM EDT 10/14/2018 10:35 AM EDT Ev Augustin INTERNET MARKETING INTERN LAB BLOOD ORDERABLES Rosie l Result [facility]
[address] [place] [address], documented in this encounter Visit Diagnoses Diagnosis Serum calcium elevated Hypercalcemia Polycythemia Polycythemia, secondary Elevated alkaline phosphatase level documented in this encounter Care Teams Sand Conditioner Relationship Specialty Start Date End Date Ev Augustin APRN [address] [place] [address] PCP - General Internal Medicine 04/12/18 08/18/21 documented as of this encounter
--- OUTSIDE RECORDS SUMMARY | 2024-02-20 09:12 | XMS_ITS | Encounter Summary ---
[facility] Address [address] [place] [address] Care Team Providers Care Automatic Equipment Technician Name Role Phone Ev Augustin APRN Primary Care Provider [phone] [phone] Encounter Details Date Type Department Care Team (Late st Contact Info) Description 12/10/2018 2:15 PM EDT Office Visit [facility] [address] [phone] Bebeto Adams MD [address] [address] Migration of spinal cord stimulator, sequela; Battery end of life of spinal cord stimulator; Meningeal adhesions/lumbar arachnoiditis; Postlaminectomy syndrome of lumbar region; Herniated lumbar intervertebral disc; Lumbar facet arthropathy/lumbar spondylosis without myelopathy; Sacroiliac joint dysfunction of left side; Myofascial pain syndrome; Uncontrolled type 2 diabetes mellitus with hyperglycemia, without long-term current use of insulin; Moderate obesity; Obstructive sleep apnea, adult; Insomnia, unspecified type; Anxiety and depression; Physical deconditioning; Encounter for fitting and adjustment of neuropacemaker of spinal cord Social History Tobacco Use Types Packs/Day Years [...] Sign Reading Time Taken Comments Blood Pressure 106/70 12/10/2018 1:02 PM EDT Pulse - - Temperature 36.3 ??C (97.4 ??F) 12/10/2018 1:02 PM ED T Respiratory Rate - - Oxygen Saturation - - Inhaled Oxygen Concentration - - Weight 80.7 kg (178 lb) 12/10/2018 1:02 PM EDT Height 154.9 cm (5' 1 ) 12/10/2018 1:02 PM EDT Body Mass Index 33.63 12/10/2018 1:02 PM EDT documented in this encounter Progress Notes * Bebeto Adams MD - 12/10/2018 2:15 PM EDT Chief Complain: I have pain in my lower back, buttocks and into my left leg down to my left foot. ? Brief History: Ms. Gertrudis Gonzalez, 62 y.o. female, returns to the clinic for evaluation of her chronic lower back and left lower extremity pain and possible SCS reprogramming. Patient was last seen on 07/25/2018, by Guero Lunsford PA-C. She returns for evaluation of her chronic pain, medication refill and possible spinal cord stimulator reprogramming. Patient did not bring her elevators inspector at her lastvisit. Patient reports that she had a recent UTI treated with ABx with relief of an exacerbation ofher lower back pain. Patient underwent implantation of her spinal cord stimulator device system on December 31, [address] Damien Berg. [place] Penta lead with the top electrodes projecting at the level of the superior endplate of the T7 vertebral body. IPG: Prot??g??. Patient did really well with her spinal cordstimulator device until about March 2017 when apparently, there was some migration of the lead and we have been unable to provide effective stimulation in the areas of her pain (left lower back left hip and left lower extremity). Pain level ranges from 1/10 to 10/10 with certain activities and during the night. Pain level: 4/10 (SCS is not working at this time due to end of life) Pain location: Left lower back, buttocks, and left lower extremity to her left foot (ankle and dorsal aspect of foot). Quality of pain: deep ache and burning Radiation of pain: From the left gluteal region to the posterior aspect of her left thigh, left calf and into the dorsal aspect of her left foot Current analgesics: ice and heat in the areas of her chronic pain, SalonPas, baclofen, tramadol, diclofenac, Lidocaine Patches and Tylenol without side effects. I have reviewed GENE #[id number] consistent with medication reconciliation. Comorbid factors: Depression and anxiety: Patient reports increasing depression and anxiety. She continues under the psychiatric care of Dr. Jaime Burks. Patient continues on Pristiq, Geodon, trazodone. She has stopped Seroquel as indicated by Dr. Telloause she had been sleeping most of the time. She continues CBT with Yoanna Osman. Physical deconditioning and noncompliance: She has not yet resumed water therapy or physical therapy Sleep disturbance: Patient underwent a sleep study 07/29/2016. Patient stopped using her CPAP machine. She uses a mouth guard Obesity: Patient has not followed up with [facility] despite medical advice. Diabetes: NIDDM, not controlled. No meds. No compliance. Global Pain Scale 10-31 06-13 Pain 13 11 15 12 Feelings 16 8 18 14 Clinical outcomes 17 8 17 20 Activities 15 7 18 20 GPS Total: 61 34 68 66 Review of Diagnostic Studies: XR SPINE, THORACIC, 1 VW-03/22/2017: No evidence for acute fracture, subluxation or dislocation of the thoracic spine with spinal cord stimulator terminating at the T7 superior endplate level. CT SCAN OF THE THORACIC SPINE WO CONTRAST-12/13/2016: CT scan of the thoracic spine was performed in the axial plane at 2 mm intervals. Images were acquired in the axial plane with images displayed in the axial as well as reconstructed sagittal and coronal projections. There are findings of laminectomy at T9 and T10 where there is insertion of a spinal cord stimulator which extends to the level of T7. There is no spinal stenosis. There are degenerative changes primarily manifest by anterior osteophytes in the mid and lower thoracic region. There is no paraspinous mass. There is no compressionfracture. There is no blastic or lytic process. UDS on 07/27/2016, appropriate UDS on 03/07/2016, appropriate X-rays of the sacroiliac joints from 07/20/2015 revealed lumbosacral and SI arthropathy. MRI of the lumbar spine from August 2012 revealed lumbar facet hypertrophy from L2-L3 through L5-S1. L4-L5 moderate disc bulge lateralizes towards the right. Moderate right and mild left neuroforaminalstenosis. L5-S1 moderate left foraminal disc protrusion combined with facet hypertrophy creating moderate left neuroforaminal stenosis with no significant canal stenosis. X-ray of the pelvis on 01/06/2014, revealed mild sclerosis about the right sacroiliac joint. X-ray of the thoracic spine on 12/09/2013, revealed spinal cord stimulator electrodes positioned atT7. The thoracic spine otherwise demonstrates mild degenerative change without acute abnormality. ?? X-rays of the sacroiliac joints from 07/20/2015 revealed lumbosacral and SI arthropathy. The following portions of the patient's history were reviewed and updated as appropriate: problem list, past medical history, past surgery history, social history, family history, medications, and allergies ?? Review of Systems Respiratory: Positive for apnea. Genitourinary: Positive for pelvic pain. Musculoskeletal: Positive for back pain, myalgias, neck pain and neck stiffness. Neurological: Positive for headaches. Psychiatric/Behavioral: Positive for agitation, decreased concentration and sleep disturbance. The patient is nervous/anxious. All other systems reviewed and are negative. BP 106/70 (BP Location: Left arm, Patient Position: Sitting) Temp 97.4 ??F (36.3 ??C) (Temporal) Ht 154.9 cm (61 ) Wt 80.7 kg (178 lb) LMP (LMP Unknown) BMI 33.63 kg/m?? Physical Exam Neurologic Exam Constitutional General appearance: No acute distress, well appearing. Obese??and??well hydrated. Head and Face Normal. Eyes: Conjunctiva and lids: No swelling, erythema or discharge. Pupils: Equal, round, reactive to light. Pulmonary Respiratory effort: No increased work of breathing or signs of respiratory distress. Auscultation of lungs: Clear to auscultation. Cardiovascular Auscultation of heart: Normal rate and rhythm, normal S1 and S2, no murmurs. Peripheral vascular exam: Normal. Examination of extremities for edema and/or varicosities: Normal. Digits and nails: Normal without clubbing or cyanosis. Musculoskeletal Gait and station: Normal. ??The range of motion of the lumbar spine is improved. Lumbar facet joint loading maneuvers are negative. Danny and Gaenslen's tests are negative. Palpation of the left gluteal bursa does not reproduce pain at this time. The range of motion of the hip joints is full and without pain. Muscle tone is normal. Left piriformis maneuvers are negative at this time. Muscle strength/tone: Normal. Skin and subcutaneous tissue: Normal without rashes or lesions.??There is complete epithelization of her surgical wounds, without erythema, drainage, or fluid accumulation. Neurologic Cranial nerves: Cranial nerves II-XII intact. Cortical function: Normal mental status. Reflexes: 2+ and symmetric. Deep tendon reflexes: 2+ right biceps,??2+ left biceps,??2+ right patella,??2+ left patella,??2+ right ankle jerk??and??2+ left ankle jerk. Superficial/Primitive Reflexes:primitive reflexes were absent.??Straight leg raising test is positive on the left, with a positive contralateral SLR. Femoral stretch sign is negative. No clonus or Babinski. Romberg's is negative. Sensation: No sensory loss. Sensory exam: intact to light touch,??intact pain and temperature sensation,??intact vibration sensation??and??normal proprioception. Coordination: Normal finger to nose and heel to kennedy. Coordination: normal balance??and??negative Romberg's sign. Psychiatric: Judgment and insight: Normal. Orientation to person, place, and time: Normal. Recent and remote memory: Intact. Mood and affect: Normal. ? Analysis of the spinal cord stimulator device without spinal cord stimulator reprogramming Analysis of the spinal cord stimulator device reveals that the patient has used her stimulator device for a total of 0 hours since last reprogramming, and 12,617 lifetime hours (0 hours per day). Analysis of impedance revealed normal impedance for all contacts. IPG has been depleted several times and is at end of life. Program TEN (best program) Electrode polarities: 1+, 2+, 4-, 6- Amplitude: 1.4-3 mA Pulse width: 1000 mcs Intraburst rate: 500 Hz Pulse Rate: 40 Hz Micro-dosin:90 A copy of the telemetry report will be scanned in the patient's chart ?? ASSESSMENT: 1. Migration of spinal cord stimulator, sequela 2. Battery end of life of spinal cord stimulator 3. Meningeal adhesions/lumbar arachnoiditis 4. Postlaminectomy syndrome of lumbar region 5. Herniated lumbar intervertebral disc 6. Lumbar facet arthropathy/lumbar spondylosis without myelopathy 7. Sacroiliac joint dysfunction of left side 8. Myofascial pain syndrome 9. Uncontrolled type 2 diabetes mellitus with hyperglycemia, without long-term current use of insulin ([facility]) 10. Moderate obesity 11. Obstructive sleep apnea, adult 12. Insomnia, unspecified type 13. Anxiety and depression 14. Physical deconditioning 15. Encounter for fitting and adjustment of neuropacemaker of spinal cord PLAN: Patient continues to struggle with lower back and left lower extremity pain, which had been well controlled with her SCS device until a few months ago. She also continues to struggle with anxiety and depression, insomnia, PATTIE (no compliance with CPAP). Therefore, I have proposed the followingplan: 1. Referral to Dr. Berg in consultation for revision of her SCS device: mobilization of the lead towards the left side of the epidural space and moving the lead down to the level of the superior aspect of the T8 vertebral body. IPG exchange to Proclaim 5 (non-rechargeable). Her SCS will be full body MRI compatible. Patient will follow-up with me thereafter. 2. Diagnostics: Random UDS 3. Long-term rehabilitation efforts: A. Resume comprehensive physical therapy program B. Resume water therapy C. Follow-up at [facility] D. Follow-up with Dr. Diogenes Neville for cognitive behavioral therapy, biofeedback, and CPAP compliance E. Follow-up with Dr. Burks for unrelenting anxiety, depression and insomnia F. The patient does not have a history of falls. I did complete a risk assessment for falls. Patient has risks factors. Fall precautions: Patient has been instructed regarding universal fall precautions, such as; ?? Removing all area rugs and coffee tables to create a safe environment at home ?? Ensure clean, dry floors ?? Wearing supportive footwear and properly fitting clothing ?? Ensure bed/chair is appropriate height and patient's feet can touch the floor ?? Using a shower transfer bench ?? Using walk-in shower and having shower safety bars installed ?? Ensure proper lighting, minimize glare ?? Have nightlights operational and in use ?? Participation in an exercise program for gait training, balance training and strength ?? Avoid carrying laundry up and down steps ?? Ensure proper compliance and organization of medications to avoid errors ?? Avoid use of over the counter sedatives and alcohol consumption 4. Pharmacological measures, as follows: A. Continue topiramate 50 mg twice daily B. Continue trazodone 50-100 mg each bedtime for insomnia C. Continue baclofen 10 mg 1/2 to 1 tablet 1-2 times a day as needed muscle spasm D. Continue lidocaine patches E. Continue Tramadol 50 mg 2-3 times a day as needed for severe breakthrough pain, will refill today. Screening and compliance with controlled substances: Patient has completed a SOAPP questionnaire and ORT questionnaires (revealing low risk). Gene reports have been reviewed at each visit, and at least every three months and appropriate. Random urinedrug screenings have been obtained and appropriate. Patient has signed a consent for treatment withcontrolled substances after reviewing the document and verbalizing full understanding of the risks,benefits, alternatives, and consequences of compliance and adherence with treatment and comprehensive plan of care. Patient received in hand a copy of this document. 5. The patient has been instructed to contact my office with any questions or difficulties. The patient understands the plan and agrees to proceed accordingly. I spent 30 minutes [id number] with the patient, of which 20 minutes were spent counseling regarding evaluation, diagnosis, prognosis, diagnostic testing, potential referrals, treatment options for chronic pain condition and overall rehabilitation, implications of compliance with medical care, coordination of care with other providers involved in patient's care, long-term management of concurrent comorbidities affecting effective pain control, risk and benefits of different interventions, alternative therapies, a comprehensive plan of care to address physical deconditioning, strategies to prevent fall injuries due to high risk for falls and long-term management and functional goals of spinal cord stimulation Patient Care Team: Ev Augustin APRN as PCP - General (Internal Medicine) Bebeto Adams MD as Consulting Physician (Pain Medicine) Damien Berg MD as Consulting Physician (Neurosurgery) Leidy Robertson MD as Consulting Physician (Internal Medicine) Guero Lunsford PA-C as Physician Evs Attendant (Physician Evs Attendant) Silme Hammer APRN as Nurse Practitioner (Gastroenterology) Roc Tracey PA-C as Physician Evs Attendant (Family Medicine) Matty Lackey MD as Consulting Physician (Gastroenterology) No orders of the defined types were placed in this encounter. Future Appointments Date Time Provider Department Center 12/19/2018 11:15 AM Nelly Clayton MD [facility] 01/03/2019 1:20 PM MARK [facility]NA MAMM 1 BH MARK GE BR [place] 01/13/2019 11:30 AM Roc Tracey PA-C [facility] END BM None 04/17/2019 12:15 PM Ev Augustin APRN [facility] PC [facility] None 05/26/2019 9:30 AM Slime Hammer APRN [facility] GE MARK None Bebeto Adams MD ? documented in this encounter Plan of Treatment Upcoming Encounters Date Type Department Care Team (Late st Contact Info) Description 03/13/2024 2:45 PM EST Office Visit [facility] [address] [place] [place] [address] Pj Ace MD [address] [facility] [address] [place] [address] documented as of this encounter Visit Diagnoses Diagnosis Migration of spinal cord stimulator, sequela Battery end of life of spinal cord stimulator Meningeal adhesions/lumbar arachnoiditis Postlaminectomy syndrome of lumbar region Postlaminectomy syndrome, lumbar region Herniated lumbar intervertebral disc Displacement of lumbar intervertebral disc without myelopathy Lumbar facet arthropathy/lumbar spondylosis without myelopathy Spondylosis of unspecified site without mention of myelopathy Sacroiliac joint dysfunction of left side Myofascial pain syndrome Unspecified myalgia and myositis Uncontrolled type 2 diabetes mellitus with hyperglycemia, without long-term current use of insulin Moderate obesity Obstructive sleep apnea, adult Insomnia, unspecified type Anxiety and depression Physical deconditioning Muscular wasting and disuse atrophy, not elsewhere classified Encounter for fitting and adjustment of neuropacemaker of spinal cord documented in this encounter Care Teams Automatic Equipment Technician Relationship Specialty Start Date End Date Ev Augustin, GROUND WATER CONTRACTOR [address] [place] [address] PCP - General Internal Medicine 04/12/18 08/18/21 documented as of this encounter
--- OUTSIDE RECORDS SUMMARY | 2024-02-20 09:12 | XMS_ITS | Encounter Summary ---
[facility] Address [address] [place] [address] Care Team Providers Care Monologist Name Role Phone Ev Augustin APRN Primary Care Provider [phone] [phone] Encounter Details Date Type Department Care Team (Late st Contact Info) Description 12/26/2018 Refill [facility] [address] [facility] [address] [place] [address] Roc Tracey PA-C [address] [place], [place] [id number] Chronic constipation Social History Tobacco Use Types [...] Telephone Encounter - Roc Tracey PA-C - 12/27/2018 9:42 AM EDT I think this refill request was meant for you. Thanks. Roc * Telephone Encounter - Ambar Morrow MA - 12/27/2018 8:07 AM EDT Please advise * Telephone Encounter - Jenise Patel - 12/26/2018 1:16 PM EDT PATIENT IS CALLING, SHE SAID THE [facility] WORKS GREAT FOR HER, SHE IS ASKING IF YOU WILL CALL IT IN FOR HER TO [facility]. PATIENT CAN BE REACHED AT [phone] documented in this encounter Plan of Treatment Upcoming Encounters Date Type Department Care Team (Late st Contact Info) Description 03/13/2024 2:45 PM EST Office Visit [facility] C[facility] [address] [place] [address] Pj Ace MD [address] [facility] [address] [address] documented as of this encounter Visit Diagnoses Diagnosis Chronic constipation Unspecified constipation documented in this encounter Care Teams Monologist Relationship Specialty Start Date End Date Ev Augustin APRN [address] [place] [address] PCP - General Internal Medicine 04/12/18 08/18/21 documented as of this encounter
--- OUTSIDE RECORDS SUMMARY | 2024-02-20 09:12 | XMS_ITS | Encounter Summary ---
[facility] [address] [place] [id number] Care Team Providers Care Bean Dumper Name Role Phone Ev Augustin APRN Primary Care Provider [phone] [phone] Encounter Details Date Type Department Care Team (Late st Contact Info) Description 01/06/2019 Telephone [facility] [address] [place] [address] Bri Monsalve Social History Tobacco Use Types Packs/Day Years [...] encounter Miscellaneous Notes * Telephone Encounter - Bri Monsalve - 01/06/2019 9:45 AM EDT ----- Message from Bebeto Adams MD sent at 01/01/2019 5:47 PM EDT ----- Mrs Gonzalez has failed several lumbar surgeries. The SCS was giving her relief until her lead migrated. The IPG is and needs to be replaced. Since we are going to do this, I asked Dr Berg to see if he could reposition the lead (It is all on my note) and Dr. Berg's note. She is supposed to follow with Dr berg ----- Message ----- From: Bri Monsalve Sent: 01/01/2019 12:13 PM To: Bebeto Adams MD They can not connect to her scs because her battery is completely . ----- Message ----- From: Bebeto Adams MD Sent: 12/27/2018 11:07 AM To: Shani Bell MA, Bri Muroon, # She can meet with [facility] to work on her SCS (as per Dr. Guzman) she has not been using it Once she uses her SCS consistently again, I would be able to give her some advice. Let me know ----- Message ----- From: Bri Monsalve Sent: 12/27/2018 10:53 AM To: Bebeto Adams MD Pt called because she seen and she is really nervous about the surgery. She is requestingan appt to come in and talk with you about what recommend. Let her know you are booked out until April... documented in this encounter Plan of Treatment Upcoming Encounters Date Type Department Care Team (Late st Contact Info) Description 03/13/2024 2:45 PM EST Office Visit [facility] CARDIOLOG[facility] [address] [place] [address] [place] [address] Pj Ace MD 1720 [facility] [address] [address] documented as of this encounter Visit Diagnoses Not on filedocumented in this encounter Care Teams Bean Dumper Relationship Specialty Start Date End Date Ev Augustin APRN [address] [place] [address] PCP - General Internal Medicine 04/12/18 08/18/21 documented as of this encounter
--- OUTSIDE RECORDS SUMMARY | 2024-02-20 09:12 | XMS_ITS | Encounter Summary ---
[facility] Address [address] [place] [address] Care Team Providers Care Rn Medication Name Role Phone Ev Augustin APRN Primary Care Provider +1 [phone] Reason for Referral * Diagnostic Imaging (Routine) - Closed Specialty Diagnoses / Procedures Referred By Contac t Referred To Contact Radiology Diagnoses Breast cancer screening Procedures Mammo screening digital tomosynthesis bilateral w Ev Amaro APRN [address] [place] [address] Phone: tel: fax: PSYCHIATRIC [address] [place] [address] Phone: tel: Referral ID Status Reason Start Date Expiration Date Visits Re quested Visits Authorized [id number] Closed 10/11/2018 10/11/2019 1 1 Reason for Visit * Diagnostic Imaging (Routine) - Closed Specialty Diagnoses / Procedures Referred By Contac t Referred To Contact Radiology Diagnoses Breast cancer screening Procedures Mammo screening digital tomosynthesis bilateral w Ev Amaro APRN [address] [place] [address] Phone: tel: fax: PSYCHIATRIC [address] [place] [address] Phone: tel: Referral ID Status Reason Start Date Expiration Date Visits Re quested Visits Authorized [id number] Closed 10/11/2018 10/11/2019 1 1 Encounter Details Date Type Department Care Team (Latest Contact Info) Description 01/03/2019 1:07 PM EDT - 01/03/2019 11:59 PM EDT Hospital Encounter PSYCHIATRIC [address] [place] [address] Ev Augustin, BREAD DUMPER [address] [place] [address] Breast cancer screening Discharge Disposition: Home or Self Care Social [...] Day With Meals. 180 capsule 1 9 01/14/20 19 metoclopramide (REGLAN) 10 MG tabletIndications:G astroparesis Take [...] bedtime. 90 tablet 1 9 04/22/19 20 rosuvastatin (CRESTOR) 5 MG tabletIndications:M ixed hyperlipidemia Take 1 tablet by mouth Every Night. 90 tablet 1 9 01/14/20 19 SITagliptin (JANUVIA) 100 MG tabletIndications:U ncontrolled type [...] SYSTEM CARDIOLOGY [address] [place] [address] [address] Pj Ace MD [address] [facility] [address] [place] [address] documented as of this encounter Procedures Procedure Name Priority Date/Time Associated Diagnosis Comments MAMMO SCREENING DIGITAL TOMOSYNTHESIS BILATERAL W CAD Routine 01/03/2019 1:30 PM EDT Breast cancer screening documented in this encounter Results * (ABNORMAL) Mammo Screening Digital Tomosynthesis Bilateral With CAD (01/03/2019 1:30 PM EDT) Anatomical Region Laterality Modality Breast N/A Mammography 01/06/2019 3:48 PM EDT Impressions 01/06/2019 3:57 PM EDT Right breast oval mass ACR BI-RADS CATEGORY: ??0, INCOMPLETE: ?? NEED ADDITIONAL IMAGING EVALUATION RECOMMENDATION: Diagnostic right breast ultrasound CAD was utilized. The standard false-negative rate of mammography is between 10% and 25%. Complex patterns or increased breast density will markedly elevate the false-negative rate of mammography. ?? A letter, in lay terminology, with the results of this exam will be mailed to the patient. ?? The patient will be contacted by our office to schedule for the additional imaging evaluation. ??Please accept this as sufficient order for the additional imaging evaluation. Physicians Order Diagnostic Breast Ultrasound Diagnosis: Abnormal Screening Mammogram This report was finalized on 01/06/2019 3:57 PM by Guerline Rand MD. Narrative 01/06/2019 3:57 PM EDT BILATERAL DIGITAL SCREENING MAMMOGRAM WITH TOMOSYNTHESIS CLINICAL INDICATION: ??Routine screening TECHNIQUE: Low dose full field digital breast tomosynthesis imaging was performed with 2D and 3D acquisitions consisting of bilateral CC and MLO views. COMPARISON: 2012, 2011 FINDINGS:There are scattered fibroglandular densities. RIGHT BREAST: ??There is an oval mass at the 12:00 position of the right breast. LEFT BREAST: ??There are no masses, areas of distortion or suspicious microcalcifications on the left. Ev Augustin APRN IMG MAMMOGRAPHY ORDERABLE S Final Result documented in this encounter Visit Diagnoses Diagnosis Breast cancer screening Breast screening, unspecified documented in this encounter Care Teams Rn Medication Relationship Specialty Start Date End Date Ev Augustin APRN [address] [place] [address] PCP - General Internal Medicine 04/12/18 08/18/21 documented as of this encounter
--- OUTSIDE RECORDS SUMMARY | 2024-02-20 09:12 | XMS_ITS | Encounter Summary ---
[facility] Address [address] [place] [address] Care Team Providers Care Special Events Coordinator Name Role Phone Ev Augustin APRN Primary Care Provider [phone] [phone] Encounter Details Date Type Department Care Team (Late st Contact Info) Description 11/24/2018 Telephone [facility] INTERNAL MEDICINE [address] [place] [address] Ev Augustin APRN [address] [place] [address] Social History Tobacco Use Types Packs/Day [...] Telephone Encounter - Mitzi Colón MA - 11/24/2018 1:30 PM EDT Called pt and lvm detailed with results * Telephone Encounter - Mitzi Colón MA - 11/24/2018 1:30 PM EDT ----- Message from Ev Augustin APRN sent at 11/24/2018 12:30 PM EDT ----- Let pt know no significant bacteria on urine culture. Can stop abx at 5 days. documented in this encounter Plan of Treatment Upcoming Encounters Date Type Department Care Team (Late st Contact Info) Description 03/13/2024 2:45 PM EST Office Visit [facility] CARDIOLOGY [address] [place] [address] [place] [address] Pj Ace MD [address] [facility] [address] [place] [address] documented as of this encounter Visit Diagnoses Not on filedocumented in this encounter Care Teams Special Events Coordinator Relationship Specialty Start Date End Date Ev Augustin APRN [address] [place] [address] PCP - General Internal Medicine 04/12/18 08/18/21 documented as of this encounter
--- OUTSIDE RECORDS SUMMARY | 2024-02-20 09:12 | XMS_ITS | Encounter Summary ---
[facility] [address] [place] [address] Care Team Providers Care Litigation Secretary Name Role Phone Ev Augustin APRN Primary Care Provider [phone] [phone] Reason for Referral * (Routine) - Closed Specialty Diagnoses / Procedures Referred By Contac t Referred To Contact Radiology Diagnoses Malfunction of spinal cord stimulator, initial encounter Procedures XR Spine Thoracic 2 View Damien Berg MD [address] [place] [address] Phone: tel: fax: Referral ID Status Reason Start Date Expiration Date Visits Re quested Visits Authorized [id number] Closed 12/20/2018 12/20/2019 1 1 Reason for Visit * Consultation (Routine) - Closed Specialty Diagnoses / Procedures Referred By Contac t Referred To Contact Neurosurgery Diagnoses Migration of spinal cord stimulator, alizeela Bebeto Adams MD [address] [place] [address] Phone: tel: fax: Damien Berg MD [address] [place] [address] Phone: tel: fax: Referral ID Status Reason Start Date Expiration Date V isits Requested Visits Authorized [id number] Closed Specialty Services Required 12/10/2018 12/10/2019 1 1 Encounter Details Date Type Department Care Team (Late st Contact Info) Description 12/20/2018 10:40 AM EDT Office Visit [facility] NEUROSURGERY [address] [facility] [address] [place] [id number] Damien Berg MD [address] [facility] [address] [place] [address] Malfunction of spinal cord stimulator, initial encounter (Primary Dx); Battery end of life of spinal cord stimulator; History of lumbar discectomy Social History Tobacco Use Types Packs/Day Years [...] - - Temperature - - Respiratory Rate 16 12/20/2018 10:21 AM EDT Oxygen Saturation - - Inhaled Oxygen Concentration - - Weight 81.6 kg (180 lb) 12/20/2018 10:21 AM EDT Height 154.9 cm (5' 1 ) 12/20/2018 10:21 AM EDT Body Mass Index 34.01 12/20/2018 10:21 AM EDT documented in this encounter Progress Notes * Damien Berg MD - 12/20/2018 10:40 AM EDT Patient: Gertrudis Gonzalez : 1955 Primary Care Provider: Ev Augutsin APRN Requesting Provider: As above History Chief Complaint: Back and bilateral lower extremity pain, left greater than right. History of Present Illness: Ms. Gonzalez is a 62-year-old disabled woman who is known to my service. On 04/21/2012 she underwent left L4-5 discectomy and a redo left L5-S1 foraminotomy. Redo left L4-5 discectomy was performed on 06/17/2012. A [employer] spinal cord stimulator had been placed but was ineffective and as such in 2014 I changed out her spinal cord stimulator to a [employer] system. It help ed for a while but then ceased helping. The unit has been off and is now completely discharged. [place] seen Dr. Adams who would like the lead repositioned and a new IPG placed. Most her pain involves the left buttock and extends into the side of the left calf. She has less pain in the right leg. Her symptoms are worse with bending, squatting, sitting, standing, reaching. There is no position that makes her feel better. She does have some swallowing trouble and has been diagnosed with gastroparesis. Review of Systems Constitutional: Positive for activity change and fatigue. Negative for appetite change, chills, diaphoresis, fever and unexpected weight change. HENT: Positive for trouble swallowing. Negative for congestion, dental problem, drooling, ear discharge, ear pain, facial swelling, hearing loss, mouth sores, nosebleeds, postnasal drip, rhinorrhea, sinus pressure, sneezing, sore throat, tinnitus and voice change. Eyes: Negative for photophobia, pain, discharge, redness, itching and visual disturbance. Respiratory: Positive for wheezing. Negative for apnea, cough, choking, chest tightness, shortness of breath and stridor. Cardiovascular: Negative for chest pain, palpitations and leg swelling. Gastrointestinal: Positive for constipation and nausea. Negative for abdominal distention, abdominal pain, anal bleeding, blood in stool, diarrhea, rectal pain and vomiting. Endocrine: Negative for cold intolerance, heat intolerance, polydipsia, polyphagia and polyuria. Genitourinary: Negative for decreased urine volume, difficulty urinating, dysuria, enuresis, flank pain, frequency, genital sores, hematuria and urgency. Musculoskeletal: Positive for arthralgias, back pain and gait problem. Negative for joint swelling,myalgias, neck pain and neck stiffness. Skin: Negative for color change, pallor, rash and wound. Allergic/Immunologic: Negative for environmental allergies, food allergies and immunocompromised state. Neurological: Positive for weakness. Negative for dizziness, tremors, seizures, syncope, facial asymmetry, speech difficulty, light-headedness, numbness and headaches. Hematological: Negative for adenopathy. Does not bruise/bleed easily. Psychiatric/Behavioral: Negative for agitation, behavioral problems, confusion, decreased concentration, dysphoric mood, hallucinations, self-injury, sleep disturbance and suicidal ideas. The patientis not nervous/anxious and is not hyperactive. All other systems reviewed and are negative. The patient's past medical history, past surgical history, family history, and social history have been reviewed at length in the electronic medical record. Physical Exam: Resp 16 Ht 154.9 cm (61 ) Wt 81.6 kg (180 lb) LMP (LMP Unknown) BMI 34.01 kg/m?? CONSTITUTIONAL: Patient is well-nourished, pleasant and appears stated age. CV: Heart regular rate and rhythm without murmur, rub, or gallop. PULMONARY: Lungs are clear to ascultation. MUSCULOSKELETAL: Straight leg raising is negative. Danny's Sign is negative. ROM in back normal. Tenderness in the back to palpation is not observed. Her IPG is over the right buttock. NEUROLOGICAL: Orientation, memory, attention span, language function, and cognition have been examined and are intact. Strength is intact in the lower extremities to direct testing. Muscle tone is normal throughout. Station and gait are normal. Sensation is intact to light touch testing throughout except in the side of the left calf where it is diminished. Deep tendon reflexes are 1+ and symmetrical. Coordination is intact. Medical Decision Making Data Review: Intraoperative plain films from 12/31/2014 demonstrate her paddle lead to be just slightly right of midline extending to the superior T7 endplate level. Most recent films from 03/22/2017 reveal some shifting of the upper aspect of the lead more to the right. Diagnosis: Malfunctioning epidural spinal cord stimulator. Treatment Options: I am going to check some plain films to see where her lead currently rests. Dr. Adams would likea new lead placed more in the midline and projecting to the superior T8 level. He would also like the Proclaim 5 nonrechargeable IPG placed. This would be full MRI body compatible. Plain films demonstrate that her lead is in the same position as it was 2017. I discussed what would be entailed with the lead and system revision. There is certainly risk of infection or neurologic deficit including weakness, numbness, or even indigo paralysis. It is also possible that even with lead revision it may not help her pain. The patient and her indicate that she had very short- lived relief from the stimulator once it was put in and then there after it was not helpful. They both are a bit reluctant and have doubts about proceeding with the surgery given that it was never very helpful. Options at this point include simply treating her pain symptomatically, removing the stimulator and obtaining other studies, or complete replacement of the spinal cord stimulator. Even if we get other studies I am somewhat doubtful that were going to find a lesion that would be amenable to conventional surgical intervention. The patient and her are going to consider their options and let me know how they would like to proceed. Diagnosis Plan 1. Malfunction of spinal cord stimulator, initial encounter ([facility]) XR Spine Thoracic 2 View 2. Battery end of life of spinal cord stimulator 3. History of lumbar discectomy Scribed for Damien Berg MD by Treasure Navarro CMA on 12/20/2018 12:05 PM I, Dr. Berg, personally performed the services described in the documentation, as scribed in my presence, and it is both accurate and complete. documented in this encounter Plan of Treatment Upcoming Encounters Date Type Department Care Team (Late st Contact Info) Description 03/13/2024 2:45 PM EST Office Visit [facility] CARDIOLOGY [address] [place] [address] [address] Pj Ace MD [address] [facility] [address] [facility] [address] [place] [address] documented as of this encounter Results * XR Spine Thoracic 2 View (12/20/2018 11:34 AM EDT) Anatomical Region Laterality Modality Spine, T-spine N/A Radiographic Sri ging 12/20/2018 4:46 PM EDT Impressions 12/22/2018 9:01 AM EDT No evidence of acute fracture or dislocation with degenerative changes identified within the thoracic spine and no change seen in the positioning of the spinal electrodes. DICTATED: ?? 12/20/2018 EDITED/ls : ?? 12/21/2018 This report was finalized on 12/22/2018 9:[address] Tana Zambrano MD. Narrative 12/22/2018 9:01 AM EDT EXAMINATION: XR SPINE THORACIC 2 VW - 12/20/2018 INDICATION: ??T85.192A-Other mechanical complication of implanted electronic neurostimulator of spinal cord electrode (lead), initial encounter. COMPARISON: 03/22/2017 FINDINGS: Two-view thoracic spine reveals electrodes stable in the lower thoracic vertebral body levels. Degenerative changes identified lower lumbar spine with bridging osteophyte formation seen on the right at the T8/T9 level. Vertebral body height and disc spaces are preserved. Facets are well aligned. Pedicles are intact. ? Procedure Note Tana Zambrano MD - 12/22/2018 EXAMINATION: XR SPINE THORACIC 2 VW - 12/20/2018 INDICATION: T85.192A-Other mechanical complication of implanted electronic neurostimulator of spinal cord electrode (lead), initial encounter. COMPARISON: 03/22/2017 FINDINGS: Two-view thoracic spine reveals electrodes stable in the lower thoracic vertebral body levels. Degenerative changes identified lower lumbar spine with bridging osteophyte formation seen on the right at the T8/T9 level. Vertebral body height and disc spaces are preserved. Facets are well aligned. Pedicles are intact. IMPRESSION: No evidence of acute fracture or dislocation with degenerative changes identified within the thoracic spine and no change seen in the positioning of the spinal electrodes. DICTATED: 12/20/2018 EDITED/ls : 12/21/2018 This report was finalized on 12/22/2018 9:[address] Tana Zambrano MD. Damien Berg MD IMG DIAGNOSTIC IMAGING ORDERA BLES Final Result documented in this encounter Visit Diagnoses Diagnosis Malfunction of spinal cord stimulator, initial encounter- Primary Battery end of life of spinal cord stimulator History of lumbar discectomy Malfunction of spinal cord stimulator, initial encounter documented in this encounter Care Teams Litigation Secretary Relationship Specialty Start Date End Date Ev Augustin, MOBILE DEVELOPER [address] [place] [address] PCP - General Internal Medicine 04/12/18 08/18/21 documented as of this encounter
--- OUTSIDE RECORDS SUMMARY | 2024-02-20 09:12 | XMS_ITS | Encounter Summary ---
[facility] [address] [place] [address] Care Team Providers Care Electric Golf Cart Repairers Name Role Phone Ev Augustin APRN Primary Care Provider +1 [phone] Encounter Details Date Type Department Care Team (Late st Contact Info) Description 10/21/2018 Telephone [facility] INTERNAL MEDICINE [address] [place] [address] Ev Augustin APRN [facility] [place] [address] Social History Tobacco Use Types [...] Encounter - Mitzi Colón MA - 10/21/2018 11:12 AM EDT Called pt and she voiced understanding * Telephone Encounter - Mitzi Colón MA - 10/21/2018 11:12 AM EDT ----- Message from Ev Augustin APRN sent at 10/21/2018 7:35 AM EDT ----- Call pt with results. Parathyroid level normal; will recheck calcium level with next annual labs. She still needs to see hematology for her elevated hgb as her ferritin (iron stores) is also elevated. Clarify if that hematology appt has been scheduled. Thanks. documented in this encounter Plan of Treatment Upcoming Encounters Date Type Department Care Team (Late st Contact Info) Description 03/13/2024 2:45 PM EST Office Visit [facility] CARDIOLOGY [address] [place] [address] [place] [address] Pj Ace MD [address] [place] [address] [address] documented as of this encounter Visit Diagnoses Not on filedocumented in this encounter Care Teams Electric Golf Cart Repairers Relationship Specialty Start Date End Date Ev Augustin APRN [address] [place] [address] PCP - General Internal Medicine 04/12/18 08/18/21 documented as of this encounter
--- OUTSIDE RECORDS SUMMARY | 2024-02-20 09:12 | XMS_ITS | Encounter Summary ---
Author Organization [facility] Address [address] [place] [address] Care Team Providers Care Face Painter Name Role Phone Ev Augustin APRN Primary Care Provider +1 [phone] Reason for Referral * (Routine) - Closed Specialty Diagnoses / Procedures Referred By Contac t Referred To Contact Radiology Diagnoses Malfunction of spinal cord stimulator, initial encounter Procedures XR Spine Thoracic 2 View Damien Berg MD [address] [place] [address] Phone: tel: fax: Referral ID Status Reason Start Date Expiration Date Visits Re quested Visits Authorized [id number] Closed 12/20/2018 12/20/2019 1 1 Reason for Visit * (Routine) - Closed Specialty Diagnoses / Procedures Referred By Contac t Referred To Contact Radiology Diagnoses Malfunction of spinal cord stimulator, initial encounter Procedures XR Spine Thoracic 2 View Damien Berg MD [address] [place] [address] Phone: tel: fax: Referral ID Status Reason Start Date Expiration Date Visits Re quested Visits Authorized [id number] Closed 12/20/2018 12/20/2019 1 1 Encounter Details Date Type Department Care Team (Late st Contact Info) Description 12/20/2018 11:15 AM EDT - 12/20/2018 11:59 PM EDT Hospital Encounter [facility] XRAY [address] [place] [id number] Damien Berg MD [address] [facility] [address] [place] [address] Malfunction of spinal cord stimulator, initial encounter Discharge Disposition: Home or Self Care Social [...] FOR SEVERE BREAKTHROUGH PAIN 270 tablet 9 07/20/20 20 traZODone (DESYREL) 50 MG tablet Take 1 to 2 tabs po hs prn 180 tablet 2 9 04/22/19 20 documented as of this encounter Plan of Treatment Upcoming Encounters Date Type Department Care Team (Late st Contact Info) Description 03/13/2024 2:45 PM EST Office Visit [facility] CARDIOLOGY [address] [place] [place] [address] Pj Ace MD [address] [place], [place] [id number] documented as of this encounter Procedures Procedure Name Priority Date/Time Associated Diagnosis Comments XR SPINE THORACIC 2 VW Routine 12/20/2018 11:34 AM EDT Malfunction of spinal cord stimulator, initial encounter documented in this encounter Results * XR Spine Thoracic [...] 9:[address] Tana Zambrano MD. us Damien Berg MD IMG DIAGNOSTIC IMAGING ORDERA BLES Final Result documented in this encounter Visit Diagnoses Diagnosis Malfunction of spinal cord stimulator, initial encounter documented in this encounter Care Teams Face Painter Relationship Specialty Start Date End Date Ev Augustin APRN [address] [place] [address] PCP - General Internal Medicine 04/12/18 08/18/21 documented as of this encounter
--- OUTSIDE RECORDS SUMMARY | 2024-02-20 09:12 | XMS_ITS | Encounter Summary ---
[facility] [address] [place] [address] Care Team Providers Care Strategic Sourcing Manager Name Role Phone Ev Augustin APRN Primary Care Provider [phone] [phone] Reason for Visit * (Routine) - Closed Specialty Diagnoses / Procedures Referred By Contac t Referred To Contact Radiology Diagnoses Abnormal mammogram Procedures US Breast Right Limited US Breast Right Complete Ev Augustin APRN [address] [place] [address] Phone: tel: fax: Referral ID Status Reason Start Date Expiration Date Visits Re quested Visits Authorized [id number] Closed 01/06/2019 01/06/2020 1 1 Encounter Details Date Type Department Care Team (Late st Contact Info) Description 01/14/2019 1:00 PM EDT - 01/14/2019 11:59 PM EDT Hospital Encounter [facility] BREAST CENTER [address] [facility] [address] [place] [phone] Guerline Rand MD [address] [facility] [address] [place] [address] Abnormal mammogram Discharge Disposition: Home or Self [...] CENTER CARDIOLOGY [address] [place] [place] [address] Pj Ace MD [address] [facility] E [facility] [address] [place] [address] documented as of this encounter Procedures Procedure Name Priority Date/Time Associated Diagnosis Comments US BREAST RIGHT LIMITED Routine 01/14/2019 1:46 PM EDT Abnormal mammogram documented in this encounter Results * US Breast Right Limited (01/14/2019 1:46 PM EDT) Anatomical Region Laterality Modality Breast Right Ultrasound 01/14/2019 3:06 PM EDT Impressions 01/15/2019 8:33 [...] stable asymmetry in the lateral breast. us Guerline Rand MD [facility] US ORDERABLES Final Result documented in this encounter Visit Diagnoses Diagnosis Abnormal mammogram Abnormal mammogram, unspecified documented in this encounter Care Teams Strategic Sourcing Manager Relationship Specialty Start Date End Date Ev Augustin, TWISTING FRAME FIXER [address] [place] [address] PCP - General Internal Medicine 04/12/18 08/18/21 documented as of this encounter
--- OUTSIDE RECORDS SUMMARY | 2024-02-20 09:12 | XMS_ITS | Encounter Summary ---
[facility] Address [address] [place] [address] Care Team Providers Care Marble Mechanic Helper Name Role Phone Ev Augustin APRN Primary Care Provider [phone] Reason for Visit * Reason Onset Date Comments Med Refill 12/10/2018 Encounter Details Date Type Department Care Team (Late st Contact Info) Description 12/10/2018 Refill [facility] [address] [phone] Bebeto Adams MD [address] [place] [address] Meningeal adhesions/lumbar arachnoiditis; Postlaminectomy syndrome of lumbar [...] Telephone Encounter - Kandi Myrick MA - 12/10/2018 3:52 PM EDT Continue Tramadol 50 mg 2-3 times a day as needed for severe breakthrough pain, will refill today. documented in this encounter Plan of Treatment Upcoming Encounters Date Type Department Care Team (Late st Contact Info) Description 03/13/2024 2:45 PM EST Office Visit [facility] [address] [place] [address] Pj Ace MD [address] [facility] [address] [place] [address] documented as of this encounter Visit Diagnoses Diagnosis Meningeal adhesions/lumbar arachnoiditis Postlaminectomy syndrome of lumbar region Postlaminectomy syndrome, lumbar region Herniated lumbar intervertebral disc Displacement of lumbar intervertebral disc without myelopathy documented in this encounter Care Teams Marble Mechanic Helper Relationship Specialty Start Date End Date Ev Augustin APRN [address] [place] [address] PCP - General Internal Medicine 04/12/18 08/18/21 documented as of this encounter
--- OUTSIDE RECORDS SUMMARY | 2024-02-20 09:12 | XMS_ITS | Encounter Summary ---
[facility] [address] [place] [address] Care Team Providers Care Bulk Fluids Handler Name Role Phone Ev Augustin APRN Primary Care Provider [phone] [phone] Encounter Details Date Type Department Care Team (Late st Contact Info) Description 11/11/2018 Telephone [facility] [address] [place] [phone] Kiera Gregg RMA Social History Tobacco Use Types Packs/Day Years [...] encounter Miscellaneous Notes * Telephone Encounter - Kiera Gregg RMA - 11/11/2018 9:05 AM EDT Called patient to reschedule nurse visit for Hep B vaccines due to Hep B vaccines being out of stock. Patient agreed to reschedule for next Sunday11/18/18 at 11 am. documented in this encounter Plan of Treatment Upcoming Encounters Date Type Department Care Team (Late st Contact Info) Description 03/13/2024 2:45 PM EST Office Visit [facility] [address] [place] [address] [place] [phone] Pj Ace MD [address] [place] [address] documented as of this encounter Visit Diagnoses Not on filedocumented in this encounter Care Teams Bulk Fluids Handler Relationship Specialty Start Date End Date Ev Augustin, SHOE MAKER [address] [place] [address] PCP - General Internal Medicine 04/12/18 08/18/21 documented as of this encounter
--- OUTSIDE RECORDS SUMMARY | 2024-02-20 09:12 | XMS_ITS | Encounter Summary ---
[facility] [address] [place] [address] Care Team Providers Care Picking Supervisor Name Role Phone Ev Augustin APRN Primary Care Provider [phone] [phone] Reason for Visit * Reason Comments Follow-up DM2 Encounter Details Date Type Department Care Team (Late st Contact Info) Description 01/13/2019 11:30 AM EDT Office Visit [facility] [address] [facility] [address] [place] [phone] Roc Tracey PA-C [address] [facility] [address] [place], [place] [id number] Uncontrolled type 2 diabetes mellitus with hyperglycemia, [...] Sign Reading Time Taken Comments Blood Pressure 118/80 01/13/2019 11:27 AM EDT Pulse 83 01/13/2019 11:27 AM EDT Temperature - - Respiratory Rate - - Oxygen Saturation 98% 01/13/2019 11:27 AM EDT Inhaled Oxygen Concentration - - Weight 82.1 kg (181 lb) 01/13/2019 11:27 AM EDT Height - - Body Mass Index 34.2 12/20/2018 10:21 AM EDT documented in this encounter Progress Notes * Roc Tracey PA-C - 01/13/2019 11:30 AM EDT Chief Complaint F/u for Diabetes Mellitus. JONA Gonzalez is a 63 y.o. female with chronic back pain and HTN- on multiple antihypertensives followed by cardiology in [place], who is here today for f/u of Diabetes Mellitus type 2. The initial diagnosis of diabetes was made approximately 2015. Did not start Januvia. Taking glimepiride and tolerating. Gastroparesis better off Bydureon. Has appt to establish care with new specialist for gastroparesis. Did not tolerate crestor 5 due to myalgias. Screening mammogram was abnormal, diagnostic mammogram scheduled for tomorrow. A1C- 7.4 (01/13/19), 7.4 (10/11/18), 7.6 (07/15/18), 7.2 (04/08/18), 7.7 (12/14/17), 6.7 (09/12/17), 8.9 (05/2017) Diabetic complications: gastroparesis followed by GI at [facility], [place], operated by [facility] Eye exam current (within one year): yes- no retinopathy Foot care and dental care: discussed Current diabetic medications include: Jardiance 25mg daily Glimepiride 4mg before breakfast Januvia 100mg daily - has not started this ACEI/ARB: losartan-hctz Statin: intolerant to statins, Repatha and Praluent not covered by insurance. Past medications: metformin (???caused blurred vision, went away when stopped taking metformin), invokana (insurance didn't cover but thinks this controlled glucose better), actos Diabetic Monitoring - no meter or log, reports not checking Nutrition: Current diet: improving diet last 2 [...] mg by mouth Daily., Disp: , Rfl: ? ? metoclopramide (REGLAN) 10 MG tablet, [...] hs prn, Disp: 180 tablet, Rfl: 2 ??? lubiprostone (AMITIZA) 24 MCG capsule, Take 1 capsule by mouth 2 (Two) Times a Day With Meals.,Disp: 180 capsule, Rfl: 1 Review of Systems Review of [...] patient is not nervous/anxious. Physical Exam BP 118/80 Pulse 83 Wt 82.1 kg (181 lb) LMP (LMP Unknown) SpO2 98% BMI 34.20 kg/m?? Body mass index is 34.2 kg/m??. Physical Exam Constitutional: She is oriented [...] Musculoskeletal: She exhibits no edema or tenderness. Gertrudis had a diabetic foot exam performed today. During the foot exam she had a monofilament test performed. Neurological Sensory Findings - Unaltered sharp/dull right ankle/foot discrimination and unaltered sharp/dull left ankle/foot discrimination. Vascular Status - Her right foot exhibits [...] Lab Results Component Value Date HGBA1C 7.4 01/13/2019 HGBA1C 7.4 10/11/2018 HGBA1C 7.6 07/15/2018 Office Visit on 01/13/2019 Component Date Value Ref Range Status ??? Glucose 01/13/2019 209* 70 - 130 mg/dL Final ??? Hemoglobin A1C 01/13/2019 7.4 % Final No images are attached to the encounter or orders placed in the encounter. Xr Spine Thoracic 1 View Result Date: 03/22/2017 Spinal cord stimulator terminating at the T7 superior endplate level. E: 03/22/2017 This report was finalized on 03/22/2017 5:[address] Jann Stover. Assessment / Plan Gertrudis was seen today for follow-up. Diagnoses and all orders for this visit: Uncontrolled type 2 diabetes mellitus with hyperglycemia, without long-term current use of insulin ([facility]) - POC Glucose Fingerstick - POC Glycosylated Hemoglobin (Hb A1C) Mixed hyperlipidemia Diabetes Mellitus 2 is under fair control. -A1c 7.4, discussed goal <7 -continue jardiance to 25mg daily. -start januvia 100mg daily -continue glimepiride 4mg before breakfast -intolerant to metformin -bring meter to f/u -call if any issues 1. Diet: 3-4 [...] 10/2019 5. Education performed during this visit: stripper opaquer diabetic complications discussed. , annual eye examinations [...] crestor 5mg -praluent/repatha not covered by insurance There are no Patient Instructions on file for this visit. Follow up: Return in about 3 months (around 04/15/2019). Discussed the nature of the disease including, [...] Visit [facility] [address] [facility] [address] [place] [address] [place] [address] Pj Ace MD [address] [facility] [address] [place] [address] documented as of this encounter Procedures Procedure Name Priority Date/Time Associated Diagnosis Comments POCT GLYCOSYLATED HEMOGLOBIN (HGB A1C) Routine 01/13/2019 11:33 AM EDT Uncontrolled type 2 diabetes mellitus with hyperglycemia, without long-term current use of insulin POCT GLUCOSE FINGERSTICK Routine 01/13/2019 11:33 AM EDT Uncontrolled type 2 diabetes mellitus with hyperglycemia, without long-term current use of insulin documented in this encounter Results * POC Glycosylated Hemoglobin (Hb A1C) (01/13/2019 11:33 AM EDT) Hemoglobin A1C 7.4 % [facility] Blood 01/13/2019 11:3 3 AM EDT us Vedrana Knezevic PA-C POINT OF CARE TEST ORDERAB LES Final Result Performing Organization Address City/[facility]/ZIP Co de Phone Number [facility]
[address] [place] [address], [place] [phone] * (ABNORMAL) POC Glucose Fingerstick (01/13/2019 11:33 AM EDT) Glucose 209(A) 70 - 130 mg/dL [facility] Blood 01/13/2019 11:3 3 AM EDT us Vedrana Knezevic PA-C POINT OF CARE TEST ORDERAB LES Final Result Performing Organization Address City/[facility]/ZIP Co de Phone Number [facility]
[address] [place] [address], [place] [phone] documented in this encounter Visit Diagnoses Diagnosis Uncontrolled type 2 diabetes mellitus with hyperglycemia, without long-term current use of insulin- Primary Mixed hyperlipidemia documented in this encounter Care Teams Picking Supervisor Relationship Specialty Start Date End Date Ev Augustin APRN [address] [place] [address] PCP - General Internal Medicine 04/12/18 08/18/21 documented as of this encounter
--- OUTSIDE RECORDS SUMMARY | 2024-02-20 09:12 | XMS_ITS | Encounter Summary ---
[facility] Organization [facility] Address [address] [place] [address] Care Team Providers Care Insurance Legal Assistant Name Role Phone Ev Augustin APRN Primary Care Provider +1 [phone] Reason for Visit * Reason Comments Depression FU Insomnia Restless Legs Syndrome Vaginal Pain menopausal vaginal a trophy Encounter Details Date Type Department Care Team (Late st Contact Info) Description 04/22/2019 9:00 AM EST Office Visit [facility] [address] [place] [address] Ev Augustin APRN [address] [place] [address] Essential hypertension (Primary Dx); RLS (restless legs syndrome); Primary insomnia; Recurrent major depressive disorder, in partial remission; Cough; Vaginal atrophy Social History Tobacco Use Types Packs/Day Years [...] Sign Reading Time Taken Comments Blood Pressure 120/80 04/22/2019 8:55 AM EST Pulse 78 04/22/2019 8:55 AM EST Temperature 37.1 ??C (98.8 ??F) 04/22/2019 8:55 AM ES T Respiratory Rate - - Oxygen Saturation 99% 04/22/2019 8:55 AM EST Inhaled Oxygen Concentration - - Weight 83.9 kg (185 lb) 04/22/2019 8:55 AM EST Height 154.9 cm (5' 1 ) 04/22/2019 8:55 AM EST Body Mass Index 34.96 04/22/2019 8:55 AM EST documented in this encounter Progress Notes * Ev Augustin, CASINO SLOT SUPERVISOR - 04/22/2019 9:00 AM EST Chief Complaint Patient presents with ??? Depression FU ??? Insomnia ??? Restless Legs Syndrome ??? Vaginal Pain menopausal vaginal atrophy History of Present Illness 63 y.o.female presents for follow up depression, insomnia, vaginal pain atrophy, and restless leg syndrome. Chronic insomnia onset years takes trazodone without difficulties. Med works ok; other than RLS bothers her at night and interferes with sleep, RLS onset > 1 year; bilateral lower ext muscle cramps. Taking requip. Having to take 1mg insteadof just 0.5mg. Higher dose does better to control symptoms. depression; onset years; recently started back on pristiq. Doing ok on current dose. Depression improved stable. Positive insomnia.. Denies any thoughts of self harm or suicidal ideations. Post menopausal sp KANNAN with c/o vaginal irritation in general and worse with wiping. Uses vaginal estrogen cream weekly as needed to help with vaginal sx. Does well. Diabetes type 2 followed by endocrine. HTN chronic onset years; follows with cardiology for bp meds. BP controlled. No headaches, vision changes dizziness or chest pain. C/o cough intermittent nonproductive with some nasal congestion; not much sinus pressure. No fever.Occasional short of air. Onset resp sx about a week. Needs refill on inhaler. Review of Systems Constitutional: Negative for chills, fatigue and fever. HENT: Positive for congestion and postnasal drip. Negative for ear pain, rhinorrhea, sinus pressure, sneezing and sore throat. Eyes: Negative for blurred vision and visual disturbance. Respiratory: Positive for cough and shortness of breath. Negative for wheezing. Cardiovascular: Negative for chest pain, palpitations and leg swelling. Gastrointestinal: Negative for abdominal pain. Genitourinary: Positive for vaginal pain. Negative for difficulty urinating, vaginal bleeding and vaginal discharge. Musculoskeletal: Positive for arthralgias and back pain. Negative for myalgias. Neurological: Negative for dizziness, syncope, light-headedness and headache. Psychiatric/Behavioral: Positive for sleep disturbance and depressed mood. Negative for self-injury, suicidal ideas and stress. The patient is not nervous/anxious. [facility] The following portions of the patient's [...] Of Cord ??? SPINAL CORD STIMULATOR IMPLANT /04/2014 placement 2014, replacement 2014. Dr. Damien Berg ??? TUBAL ABDOMINAL LIGATION Allergies Allergen Reactions ??? Beta Adrenergic Blockers ??? Cyclobenzaprine ??? Hydrochlorothiazide ??? Hyzaar [Losartan Potassium-Hctz] ??? Latex ??? Losartan ??? Metformin ??? Penicillins ??? Pioglitazone ??? Spironolactone ??? Iain Inhibitors Cough ??? Amlodipine Diarrhea Social History Socioeconomic History ??? Marital status: [...] Maternal Grandmother Current Outpatient Medications: ??? albuterol (PROVENTIL HFA;VENTOLIN HFA) 108 (90 Base) MCG/ACT inhaler, Inhale 2 puffs Every 6 (Six) Hours As Needed for Wheezing., Disp: 1 inhaler, Rfl: 0 ??? bisoprolol (ZEBeta) 5 MG tablet, Take [...] Disp: 180 tablet, Rfl: 2 VITALS: BP 120/80 Pulse 78 Temp 98.8 ??F (37.1 ??C) Ht 154.9 cm (61 ) Wt 83.9 kg (185 lb) LMP (LMP Unknown) SpO2 99% BMI 34.96 kg/m?? Physical Exam Constitutional: She is oriented to person, place, and time. She appears well- developed and well-nourished. No distress. HENT: Head: Normocephalic. Right Ear: Tympanic membrane, external ear and ear canal normal. Left Ear: Tympanic membrane, external ear and ear canal normal. Nose: Mucosal edema and congestion present. No rhinorrhea. Right sinus exhibits no maxillary sinus tenderness and no frontal sinus tenderness. Left sinus exhibits no maxillary sinus tenderness and nofrontal sinus tenderness. Mouth/Throat: Oropharynx is clear and moist and mucous membranes are normal. Eyes: Pupils are equal, round, and reactive to light. Conjunctivae and EOM are normal. Right eye exhibits no discharge. Left eye exhibits no discharge. Neck: Normal range of motion. Neck supple. Cardiovascular: Normal rate, regular rhythm and normal heart sounds. No edema Pulmonary/Chest: Effort normal and breath sounds normal. No respiratory distress. Intermittent cough Abdominal: Soft. Bowel sounds are normal. There is no tenderness. Neurological: She is alert and oriented to person, place, and time. Skin: Skin is warm and dry. Capillary refill takes less than 2 seconds. No rash noted. Psychiatric: She has a normal mood and affect. Her behavior is normal. Vitals reviewed. LABS Results for orders placed or performed in visit on 04/22/19 Comprehensive Metabolic Panel Result Value Ref Range Glucose 144 (H) 65 - 99 mg/dL BUN 13 8 - 23 mg/dL Creatinine 0.68 0.57 - 1.00 mg/dL Sodium 138 136 - 145 mmol/L Potassium 4.4 3.5 - 5.2 mmol/L Chloride 99 98 - 107 mmol/L CO2 25.9 22.0 - 29.0 mmol/L Calcium 10.0 8.6 - 10.5 mg/dL Total Protein 7.8 6.0 - 8.5 g/dL Albumin 4.10 3.50 - 5.20 g/dL ALT (SGPT) 40 (H) 1 - 33 U/L AST (SGOT) 30 1 - 32 U/L Alkaline Phosphatase 144 (H) 39 - 117 U/L Total Bilirubin 0.5 0.2 - 1.2 mg/dL eGFR Non Amer 88 >60 mL/min/1.73 Globulin 3.7 gm/dL A/G Ratio 1.1 g/dL BUN/Creatinine Ratio 19.1 7.0 - 25.0 Anion Gap 13.1 5.0 - 15.0 mmol/L MicroAlbumin, Urine, Random - Urine, Clean Catch Result Value Ref Range Microalbumin, Urine <1.2 mg/dL CBC Auto Differential Result Value Ref Range WBC 7.20 3.40 - 10.80 10*3/mm3 RBC 5.78 (H) 3.77 - 5.28 10*6/mm3 Hemoglobin 16.7 (H) 12.0 - 15.9 g/dL Hematocrit 50.6 (H) 34.0 - 46.6 % MCV 87.5 79.0 - 97.0 fL MCH 28.9 26.6 - 33.0 pg MCHC 33.0 31.5 - 35.7 g/dL RDW 12.7 12.3 - 15.4 % RDW-SD 40.2 37.0 - 54.0 fl MPV 11.1 6.0 - 12.0 fL Platelets 301 140 - 450 10*3/mm3 Neutrophil % 65.6 42.7 - 76.0 % Lymphocyte % 23.6 19.6 - 45.3 % Monocyte % 5.6 5.0 - 12.0 % Eosinophil % 3.3 0.3 - 6.2 % Basophil % 1.3 0.0 - 1.5 % Immature Grans % 0.6 (H) 0.0 - 0.5 % Neutrophils, Absolute 4.73 1.70 - 7.00 10*3/mm3 Lymphocytes, Absolute 1.70 0.70 - 3.10 10*3/mm3 Monocytes, Absolute 0.40 0.10 - 0.90 10*3/mm3 Eosinophils, Absolute 0.24 0.00 - 0.40 10*3/mm3 Basophils, Absolute 0.09 0.00 - 0.20 10*3/mm3 Immature Grans, Absolute 0.04 0.00 - 0.05 10*3/mm3 nRBC 0.0 0.0 - 0.2 /100 WBC ASSESSMENT/PLAN Gertrudis was seen today for depression, insomnia, restless legs syndrome and vaginal pain. Diagnoses and all orders for this visit: Essential hypertension - CBC & Differential - Comprehensive Metabolic Panel - MicroAlbumin, Urine, Random - Urine, Clean Catch - CBC Auto Differential Recommend low Na diet less than 2400mg/day preferably <1500mg/day, increased aerobic exercise 4-5 X per week for total of 150 minutes/week; home BP monitoring with goal BP < 130/80. DASH diet reviewed with pt; written instructions provided. Compliance with medication regimen. Cont fu with cardiology. RLS (restless legs syndrome) - rOPINIRole (REQUIP) 1 MG tablet; Take 1 tablet by mouth Every Night. Take 1 hour before bedtime. - Comprehensive Metabolic Panel Drink more water. Primary insomnia - traZODone (DESYREL) 50 MG tablet; Take 1 to 2 tabs po hs prn Recurrent major depressive disorder, in partial remission ([facility]) Comments: restarted on pristiq; started on lower dose with anticipation of needing to titrate up for sx control Orders: - Desvenlafaxine Succinate ER (PRISTIQ) 25 MG tablet sustained-release 24 hour; Take 1 tablet by mouth Daily. Cough - albuterol sulfate HFA 108 (90 Base) MCG/ACT inhaler; Inhale 2 puffs Every 6 (Six) Hours As Neededfor Wheezing or Shortness of Air. Vaginal atrophy - estradiol (ESTRACE VAGINAL) 0.1 MG/GM vaginal cream; Insert 2 g into the vagina 1 (One) Time Per Week. Recommended return for medicare wellness annual exam. Pt declined flu vaccine. I discussed the patients findings and my recommendations with patient. Patient was encouraged to keep me informed of any acute changes, lack of improvement, or any new concerning symptoms. Patient voiced understanding of all instructions and denied further questions. FOLLOW-UP Return in about 6 months (around 10/21/2019), or if symptoms worsen or fail to improve, for MedicareWellness. Electronically signed by: Ev Augustin APRN 04/22/2019 EMR Dragon/Battery Hand Disclaimer: Much of this encounter note is an electronic radiology transcriptionist/translation of spoken language to printed text. The [...] Office Visit [facility] [address] [facility] [place] [address] Pj Ace MD [address] [facility] [address] [place] [address] documented as of this encounter Procedures Procedure Name Priority Date/Time Associated Diagnosis Comments COMPREHENSIVE METABOLIC PANEL Routine 04/22/2019 12:19 PM EST Essential hypertension RLS (restless legs syndrome) MICROALBUMIN, URINE, RANDOM Routine 04/22/2019 12:17 PM EST Essential hypertension CBC WITH AUTO DIFFERENTIAL Routine 04/22/2019 9:46 AM EST Essential hypertension CBC AND DIFFERENTIAL Routine 04/22/2019 9:46 AM EST Essential hypertension documented in this encounter Results * (ABNORMAL) Comprehensive Metabolic Panel (04/22/2019 12:19 PM EST) Glucose 144(H) 65 - 99 mg/dL 04/22/2019 6:42 PM [facility] BUN 13 8 - 23 mg/dL 04/22/2019 6:42 PM [facility] Creatinine 0.68 0.57 - 1.00 mg/dL 04/22/2019 6:42 PM [facility] Sodium 138 136 - 145 mmol/L 04/22/2019 6:42 PM [facility] Potassium 4.4 3.5 - 5.2 mmol/L 04/22/2019 6:42 PM [facility] Chloride 99 98 - 107 mmol/L 04/22/2019 6:42 PM [facility] CO2 25.9 22.0 - 29.0 mmol/L 04/22/2019 6:42 PM [facility] Calcium 10.0 8.6 - 10.5 mg/dL 04/22/2019 6:42 PM [facility] Total Protein 7.8 6.0 - 8.5 g/dL 04/22/2019 6:42 PM [facility] Albumin 4.10 3.50 - 5.20 g/dL 04/22/2019 6:42 PM [facility] ALT (SGPT) 40(H) 1 - 33 U/L 04/22/2019 6:42 PM [facility] AST (SGOT) 30 1 - 32 U/L 04/22/2019 6:42 PM [facility] Alkaline Phosphatase 144(H) 39 - 117 U/L 04/22/2019 6:42 PM [facility] Total Bilirubin 0.5 0.2 - 1.2 mg/dL 04/22/2019 6:42 PM [facility] eGFR Non Amer 88 >60 mL/min/1.7 3 04/22/2019 6:42 PM [facility] Globulin 3.7 gm/dL 04/22/2019 6:42 PM [facility] A/G Ratio 1.1 g/dL 04/22/2019 6:42 PM [facility] BUN/Creatinine Ratio 19.1 7.0 - 25.0 04/22/2019 6:42 PM [facility] Anion Gap 13.1 5.0 - 15.0 mmol/L 04/22/2019 6:42 PM [facility] Blood Venipuncture / Unknown 04/22/2019 12:19 PM EST 04/22/2019 12:19 PM EST [facility] - 04/22/2019 6:42 PM EST GFR Normal >60 Chronic Kidney Disease <60 Kidney Failure <15 Ev Augustin CASINO SLOT SUPERVISOR LAB BLOOD ORDERABLES Rosie l Result [facility]
[address] [place] [address], * MicroAlbumin, Urine, Random - Urine, Clean Catch (04/22/2019 12:17 PM EST) Microalbumin, Urine <1.2 mg/dL 04/22/2019 8:42 PM [facility] Urine Urine specimen collection, clean catch / Unknown Collection / Unknown 04/22/2019 12:17 PM EST 04/22/2019 12:17 PM EST [facility] - 04/22/2019 8:42 PM EST Citizen Of [place] Diabetes Association Definition of Microalbuminuria: Normal ? Less than 30 Microalbuminuria ? 30-300 Clinical Microalbumuria ??Greater than 300 Ev Osullivanminna CASINO SLOT SUPERVISOR URINE ORDERABLES Final Re sult [facility]
[address] [place] [address], * (ABNORMAL) CBC Auto Differential (04/22/2019 9:46 AM EST) WBC 7.20 3.40 - 10.80 10*3/mm3 04/22/2019 6:51 PM [facility] RBC 5.78(H) 3.77 - 5.28 10*6/mm3 04/22/2019 6:51 PM [facility] Hemoglobin 16.7(H) 12.0 - 15.9 g/dL 04/22/2019 6:51 PM [facility] Hematocrit 50.6(H) 34.0 - 46.6 % 04/22/2019 6:51 PM [facility] MCV 87.5 79.0 - 97.0 fL 04/22/2019 6:51 PM [facility] MCH 28.9 26.6 - 33.0 pg 04/22/2019 6:51 PM [facility] MCHC 33.0 31.5 - 35.7 g/dL 04/22/2019 6:51 PM [facility] RDW 12.7 12.3 - 15.4 % 04/22/2019 6:51 PM [facility] RDW-SD 40.2 37.0 - 54.0 fl 04/22/2019 6:51 PM [facility] MPV 11.1 6.0 - 12.0 fL 04/22/2019 6:51 PM [facility] Platelets 301 140 - 450 10*3/mm3 04/22/2019 6:51 PM [facility] Neutrophil % 65.6 42.7 - 76.0 % 04/22/2019 6:51 PM [facility] Lymphocyte % 23.6 19.6 - 45.3 % 04/22/2019 6:51 PM [facility] Monocyte % 5.6 5.0 - 12.0 % 04/22/2019 6:51 PM [facility] Eosinophil % 3.3 0.3 - 6.2 % 04/22/2019 6:51 PM [facility] Basophil % 1.3 0.0 - 1.5 % 04/22/2019 6:51 PM [facility] Immature Grans % 0.6(H) 0.0 - 0.5 % 04/22/2019 6:51 PM [facility] Neutrophils, Absolute 4.73 1.70 - 7.00 10*3/mm3 04/22/2019 6:51 PM [facility] Lymphocytes, Absolute 1.70 0.70 - 3.10 10*3/mm3 04/22/2019 6:51 PM [facility] Monocytes, Absolute 0.40 0.10 - 0.90 10*3/mm3 04/22/2019 6:51 PM [facility] Eosinophils, Absolute 0.24 0.00 - 0.40 10*3/mm3 04/22/2019 6:51 PM [facility] Basophils, Absolute 0.09 0.00 - 0.20 10*3/mm3 04/22/2019 6:51 PM [facility] Immature Grans, Absolute 0.04 0.00 - 0.05 10*3/mm3 04/22/2019 6:51 PM [facility] nRBC 0.0 0.0 - 0.2 /100 WBC 04/22/2019 6:51 PM [facility] Blood Venipuncture / Unknown 04/22/2019 9:46 AM EST 04/22/2019 9:46 AM EST us Ev Augustin CASINO SLOT SUPERVISOR LAB BLOOD ORDERABLES Rosie patel Result [facility]
[address] [place] [address], documented in this encounter Visit Diagnoses Diagnosis Essential hypertension- Primary Unspecified essential hypertension RLS (restless legs syndrome) Restless legs syndrome (RLS) Primary insomnia Persistent disorder of initiating or maintaining sleep Recurrent major depressive disorder, in partial remission Cough Vaginal atrophy Postmenopausal atrophic vaginitis documented in this encounter Care Teams Insurance Legal Assistant Relationship Specialty Start Date End Date Ev Augustin, CASINO SLOT SUPERVISOR [address] [place] [address] PCP - General Internal Medicine 04/12/18 08/18/21 documented as of this encounter
--- OUTSIDE RECORDS SUMMARY | 2024-02-20 09:12 | XMS_ITS | Encounter Summary ---
[facility] Address [address] [place] [id number] Care Team Providers Care Soccer Commentator Name Role Phone Ev Augustin APRN Primary Care Provider +1 -[phone] Reason for Visit * Reason Comments Med Refill Encounter Details Date Type Department Care Team (Late Contact Info) Description 02/03/2019 Refill [facility] [address] [place] [address] Roc Tracey PA-C [address] [facility] [address] [place] [address] Uncontrolled type 2 diabetes mellitus with hyperglycemia, [...] [facility] [address] [place] [address] Pj Ace MD [address] [facility] [address] [place], [place] [id number] documented as of this encounter Visit Diagnoses Diagnosis Uncontrolled type 2 diabetes mellitus with hyperglycemia, without long-term current use of insulin documented in this encounter Care Teams Soccer Commentator Relationship Specialty Start Date End Date Ev Augustin APRN [address] [place] [address] PCP - General Internal Medicine 04/12/18 08/18/21 documented as of this encounter
--- OUTSIDE RECORDS SUMMARY | 2024-02-20 09:12 | XMS_ITS | Encounter Summary ---
Author Organization [facility] Address [address] [place] [address] Care Team Providers Care Social Media Director Name Role Phone Ev Augustin APRN Primary Care Provider +1 [phone] Encounter Details Date Type Department Care Team (Late Contact Info) Description 11/12/2018 11:50 AM EDT Lab [address] [place] [address] Elevated ferritin; Elevated hemoglobin Social History Tobacco Use Types Packs/Day Years [...] Visit [facility] [address] [facility] [address] [place] [address] [place] [address] Pj Ace MD [address] [place] [address] documented as of this encounter Procedures Procedure Name Priority Date/Time Associated Diagnosis Comments IRON PROFILEC Routine 11/12/2018 11:48 AM EDT Elevated ferritin Elevated hemoglobin RETICULOCYTES Routine 11/12/2018 11:48 AM EDT Elevated ferritin Elevated hemoglobin FERRITIN Routine 11/12/2018 11:48 AM EDT Elevated ferritin Elevated hemoglobin documented in this encounter Results * Iron Profile (11/12/2018 11:48 AM EDT) Iron 108 37 - 145 mcg/dL 11/12/2018 6:29 PM EDT [facility] Iron Saturation (TSAT) 25 20 - 50 % 11/12/2018 6:29 PM EDT [facility] Transferrin 295 200 - 360 mg/dL 11/12/2018 6:29 PM EDT [facility] TIBC 440 298 - 536 mcg/dL 11/12/2018 6:29 PM EDT [facility] Blood Venipuncture / Unknown 11/12/2018 11:48 AM EDT 11/12/2018 11:52 AM EDT Slime Hammer SUPERVISOR CALIBRATION LAB BLOOD ORDERABLES Final Result Performing Organization Address City/[facility]/ZIP Co de Phone Number [facility]
[address] [place] [address], * Reticulocytes (11/12/2018 11:48 AM EDT) Reticulocyte % 1.47 0.70 - 1.90 % 11/12/2018 6:26 PM EDT [facility] Reticulocyte Absolute 0.0817 0.0200 - 0.1300 10*6/mm3 11/12/2018 6:26 PM EDT [facility] Blood Venipuncture / Unknown 11/12/2018 11:48 AM EDT 11/12/2018 11:52 AM EDT Slime Hammer APRN LAB BLOOD ORDERABLES Final Result [facility]
[address] [place] [address], [place] [phone] * (ABNORMAL) Ferritin (11/12/2018 11:48 AM EDT) Ferritin 212.00(H) 13.00 - 150.00 ng/mL 11/12/2018 6:32 PM EDT [facility] Blood Venipuncture / Unknown 11/12/2018 11:48 AM EDT 11/12/2018 11:52 AM EDT Slime Hammer SUPERVISOR CALIBRATION LAB BLOOD ORDERABLES Final Result [facility]
[address] [place] [address], documented in this encounter Visit Diagnoses Diagnosis Elevated ferritin Other abnormal blood chemistry Elevated hemoglobin documented in this encounter Care Teams Social Media Director Relationship Specialty Start Date End Date Ev Augustin APRN [address] [place] [address] PCP - General Internal Medicine 04/12/18 08/18/21 documented as of this encounter
--- OUTSIDE RECORDS SUMMARY | 2024-02-20 09:12 | XMS_ITS | Encounter Summary ---
Author Organization [facility] Address [address] [place] [id number] Care Team Providers Care Community Development Specialist Name Role Phone Ev Augustin APRN Primary Care Provider [phone] [phone] Reason for Visit * Reason Comments Med Refill Encounter Details Date Type Department Care Team (Late Contact Info) Description 11/12/2018 Refill [facility] [address] [facility] [address] [place] [address] Matty Lackey MD [address] [facility] [address] [place], [place] [id number] Chronic GERD; Encounter for long-term (current) use of NSAIDs Social History Tobacco Use Types Packs/Day Years [...] Description 03/13/2024 2:45 PM EST Office Visit [facility] [address] [place] [address] [place] [address] Pj Ace MD [address] [facility] [address] [place], [place] [phone] documented as of this encounter Visit Diagnoses Diagnosis Chronic GERD Encounter for long-term (current) use of NSAIDs Encounter for long-term (current) use of non-steroidal anti-inflammatories documented in this encounter Care Teams Community Development Specialist Relationship Specialty Start Date End Date Ev Augustin APRN [address] [place] [address] PCP - General Internal Medicine 04/12/18 08/18/21 documented as of this encounter
--- OUTSIDE RECORDS SUMMARY | 2024-02-20 09:12 | XMS_ITS | Encounter Summary ---
[facility] Organization [facility] Address [address] [place] [address] Care Team Providers Care Crab Steamer Name Role Phone Ev Augustin APRN Primary Care Provider [phone] Reason for Visit * Consultation (Routine) - Closed Specialty Diagnoses / Procedures Referred By Contact Referred To Contact Hematology / Oncology Diagnoses Elevated ferritin Polycythemia Ev Augustin APRN [address] [place] [address] Phone: tel: fax: [facility] HEMATOLOGY & ONCOLOGY [address] [place] [address] Phone: tel: fax: Referral ID Status Reason Start Date Expiration Date V isits Requested Visits Authorized [id number] Closed Specialty Services Required 10/12/2018 10/12/2019 1 1 Encounter Details Date Type Department Care Team (Late st Contact Info) Description 11/28/2018 1:30 PM EDT Consult [facility] HEMATOLOGY & ONCOLOGY [address] [address] Nelly Clayton MD [address] [place] [id number] Elevated ferritin level (Primary Dx); Hypercalcemia Social History Tobacco Use Types Packs/Day Years [...] Sign Reading Time Taken Comments Blood Pressure 136/77 11/28/2018 12:54 PM EDT CECILIA E Pulse 75 11/28/2018 12:54 PM EDT Temperature 36.3 ??C (97.3 ??F) 11/28/2018 12:54 PM E DT Respiratory Rate 16 11/28/2018 12:54 PM EDT Oxygen Saturation 96% 11/28/2018 12:54 PM EDT RA Inhaled Oxygen Concentration - - Weight 81.2 kg (179 lb) 11/28/2018 12:54 PM EDT Height 154.9 cm (5' 1 ) 11/28/2018 12:54 PM EDT Body Mass Index 33.82 11/28/2018 12:54 PM EDT documented in this encounter Progress Notes * Nelly Clayton MD - 11/28/2018 1:30 PM EDT Subjective PROBLEM LIST: 1. Elevated ferritin 2. NAFLD 3. Gastroparesis 4. DM2 CHIEF COMPLAINT: elevated ferritin and hemoglobin HISTORY OF PRESENT ILLNESS: The patient is a 62 y.o. female, referred for evaluation of abnormal labs. Labs: Elevated ferrtin 212, iron sat 25% hgb 16.5 Ca 11.0, PTH 30.4 Abnormal LFTs She denies any family history of iron overload or liver disease. Her mother of kidney failure and COPD. She does not take any iron-containing vitamins. She does have gastroparesis. She is a never smoker. Her main complaint today is chronic pain that is in her back and goes down her legs. She reports that she was tested for sleep apnea and was diagnosed with this. However she was never able to tolerate the mask and so she no longer attempts to wear this. The mask was taken away because it was not being used. REVIEW OF SYSTEMS: A 14 point review of systems was performed and is negative except as noted above. Past Medical History: Diagnosis Date ??? Anxiety [...] mammogram Description: 11/27/2008 ??? Vitamin D deficiency Current Outpatient Medications on File Prior to Visit Medication Sig Dispense Refill ??? albuterol (PROVENTIL HFA;VENTOLIN HFA) 108 (90 Base) MCG/ACT inhaler Inhale 2 puffs Every 6 (Six) Hours As Needed for Wheezing. 1 inhaler 0 ??? baclofen (LIORESAL) 10 MG tablet Take 1/2 to 1 tab po Qd to bid prn 180 tablet 1 ??? bisoprolol (ZEBeta) 5 MG tablet Take 5 mg by mouth Daily. ??? Desvenlafaxine Succinate ER (PRISTIQ) 25 MG tablet sustained-release 24 hour Take 1 tablet by mouth Daily. 30 tablet 0 ??? Empagliflozin (JARDIANCE) 25 MG tablet Take 25 mg by mouth Daily. 90 tablet 1 ??? estradiol (ESTRACE VAGINAL) 0.1 MG/GM vaginal cream Insert 2 g into the vagina 1 (One) Time PerWeek. 42.5 g 5 ??? furosemide (LASIX) 20 MG tablet Take 20 mg by mouth 2 (Two) Times a Day. ??? glimepiride (AMARYL) 4 MG tablet Take 1 po qd before a meal 30 tablet 6 ??? Liniments (SALONPAS) pads Apply topically. prn ??? losartan (COZAAR) 100 MG tablet Take 100 mg by mouth Daily. ??? lubiprostone (AMITIZA) 24 MCG capsule Take 1 capsule by mouth 2 (Two) Times a Day With Meals. 180 capsule 1 ? ? metoclopramide (REGLAN) 10 MG tablet Take 1 tablet by mouth 4 (Four) Times a Day Before Meals & at Bedtime As Needed (for nausea or vomiting). 40 tablet 2 ??? NIFEdipine CC (ADALAT CC) 90 MG 24 hr tablet Take 60 mg by mouth Daily. ??? nitrofurantoin, macrocrystal-monohydrate, (MACROBID) 100 MG capsule Take 1 capsule by mouth Every 12 (Twelve) Hours for 7 days. 14 capsule 0 ??? omeprazole (priLOSEC) 40 MG capsule Take 1 capsule by mouth Daily. 90 capsule 3 ??? rOPINIRole (REQUIP) 0.5 MG tablet Take 1 tablet by mouth Every Night. Take 1 hour before bedtime. 90 tablet 1 ??? rosuvastatin (CRESTOR) 5 MG tablet Take 1 tablet by mouth Every Night. 90 tablet 1 ??? SITagliptin (JANUVIA) 100 MG tablet Take 1 tablet by mouth Daily. 90 tablet 1 ??? topiramate (TOPAMAX) 50 MG tablet TAKE ONE TABLET BY MOUTH TWICE DAILY (Patient taking differently: TAKE ONE TABLET BY MOUTH as needed) 180 tablet 0 ??? traMADol (ULTRAM) 50 MG tablet TAKE 1 TABLET PO TID PRN FOR SEVERE BREAKTHROUGH PAIN 270 tablet0 ??? traZODone (DESYREL) 50 MG tablet Take 1 to 2 tabs po hs prn 180 tablet 2 No current facility-administered medications on file prior to visit. Allergies Allergen Reactions ??? Iain Inhibitors Cough ??? Amlodipine ??? Beta Adrenergic Blockers ??? Cyclobenzaprine ??? Hydrochlorothiazide ??? Hyzaar [Losartan Potassium-Hctz] ??? Latex ??? Losartan ??? Metformin ??? Penicillins ??? Pioglitazone ??? Spironolactone Past Surgical History: Procedure Laterality Date ??? BACK SURGERY x3; Lower Back ??? BLADDER SURGERY ??? BREAST BIOPSY Left Benign ??? COLONOSCOPY 2019 Complete Colonoscopy ??? ELBOW ARTHROPLASTY Left ??? HYSTERECTOMY Total Abdominal Hysterectomy (Description: BSO) ??? OTHER SURGICAL HISTORY Spinal Sterotaxis Stimulation Of Cord ??? SPINAL CORD STIMULATOR IMPLANT 2015 replacement ??? TUBAL ABDOMINAL LIGATION Social History Socioeconomic History ??? Marital status: [...] type 2 ??? Kidney failure Maternal Grandmother Objective BP 136/77 Comment: LUE Pulse 75 Temp 97.3 ??F (36.3 ??C) (Temporal) Resp 16 Ht 154.9 cm (61 ) Wt 81.2 kg (179 lb) LMP (LMP Unknown) SpO2 96% Comment: RA BMI 33.82 kg/m?? Performance Status: 0 General: well appearing female in no acute distress Neuro: alert and oriented HEENT: sclerae anicteric, oropharynx clear Lymphatics: no cervical, supraclavicular, or axillary adenopathy Cardiovascular: regular rate and rhythm, no murmurs Lungs: clear to auscultation bilaterally Abdomen: soft, nontender, nondistended. No palpable organomegaly Extremities: no lower extremity edema Skin: no rashes, lesions, bruising, or petechiae Psych: mood and affect appropriate Results for GERTRUDIS DALY ( ) as of 11/26/2018 12:49 Ref. Range 10/11/2018 11:40 10/14/2018 10:35 11/12/2018 11:48 Glucose Latest Ref Range: 65 - 99 mg/dL 153 (H) Sodium Latest Ref Range: 136 - 145 mmol/L 142 Potassium Latest Ref Range: 3.5 - 5.2 mmol/L 5.0 CO2 Latest Ref Range: 22.0 - 29.0 mmol/L 27.6 Chloride Latest Ref Range: 98 - 107 mmol/L 100 Anion Gap Latest Ref Range: 5.0 - 15.0 mmol/L 14.4 Creatinine Latest Ref Range: 0.57 - 1.00 mg/dL 0.92 BUN Latest Ref Range: 8 - 23 mg/dL 24 (H) BUN/Creatinine Ratio Latest Ref Range: 7.0 - 25.0 26.1 (H) Calcium Latest Ref Range: 8.6 - 10.5 mg/dL 11.0 (H) eGFR Non Am Latest Ref Range: >60 mL/min/1.73 62 Alkaline Phosphatase Latest Ref Range: 39 - 117 IU/L 161 (H) 161 (H) Total Protein Latest Ref Range: 6.0 - 8.5 g/dL 8.2 ALT (SGPT) Latest Ref Range: 1 - 33 U/L 49 (H) AST (SGOT) Latest Ref Range: 1 - 32 U/L 38 (H) Total Bilirubin Latest Ref Range: 0.2 - 1.2 mg/dL 0.5 Albumin Latest Ref Range: 3.50 - 5.20 g/dL 4.60 Globulin Latest Units: gm/dL 3.6 A/G Ratio Latest Units: g/dL 1.3 PTH Intact (Serial Monitor) Latest Ref Range: 15.0 - 65.0 pg/mL 30.4 Iron Latest Ref Range: 37 - 145 mcg/dL 108 Ferritin Latest Ref Range: 13.00 - 150.00 ng/mL 225.00 (H) 212.00 (H) Iron Saturation Latest Ref Range: 20 - 50 % 25 Transferrin Latest Ref Range: 200 - 360 mg/dL 295 TIBC Latest Ref Range: 298 - 536 mcg/dL 440 Bone Fraction: Latest Ref Range: 14 - 68 % 44 Intestinal Frac.: Latest Ref Range: 0 - 18 % 6 Liver Fraction: Latest Ref Range: 18 - 85 % 50 WBC Latest Ref Range: 3.40 - 10.80 10*3/mm3 7.58 RBC Latest Ref Range: 3.77 - 5.28 10*6/mm3 5.85 (H) Hemoglobin Latest Ref Range: 12.0 - 15.9 g/dL 16.5 (H) Hematocrit Latest Ref Range: 34.0 - 46.6 % 54.4 (H) RDW Latest Ref Range: 12.3 - 15.4 % 14.1 MCV Latest Ref Range: 79.0 - 97.0 fL 93.0 MCH Latest Ref Range: 26.6 - 33.0 pg 28.2 MCHC Latest Ref Range: 31.5 - 35.7 g/dL 30.3 (L) MPV Latest Ref Range: 6.0 - 12.0 fL 10.9 Platelets Latest Ref Range: 140 - 450 10*3/mm3 287 RDW-SD Latest Ref Range: 37.0 - 54.0 fl 48.1 Neutrophil Rel % Latest Ref Range: 42.7 - 76.0 % 59.7 Lymphocyte Rel % Latest Ref Range: 19.6 - 45.3 % 30.2 Monocyte Rel % Latest Ref Range: 5.0 - 12.0 % 6.3 Eosinophil Rel % Latest Ref Range: 0.3 - 6.2 % 2.1 Basophil Rel % Latest Ref Range: 0.0 - 1.5 % 1.3 Immature Granulocyte Rel % Latest Ref Range: 0.0 - 0.5 % 0.4 Reticulocyte % Latest Ref Range: 0.70 - 1.90 % 1.47 Reticulocyte Absolute Latest Ref Range: 0.0200 - 0.1300 10*6/mm3 0.0817 Neutrophils Absolute Latest Ref Range: 1.70 - 7.00 10*3/mm3 4.52 Lymphocytes Absolute Latest Ref Range: 0.70 - 3.10 10*3/mm3 2.29 Monocytes Absolute Latest Ref Range: 0.10 - 0.90 10*3/mm3 0.48 Eosinophils Absolute Latest Ref Range: 0.00 - 0.40 10*3/mm3 0.16 Basophils Absolute Latest Ref Range: 0.00 - 0.20 10*3/mm3 0.10 Immature Grans, Absolute Latest Ref Range: 0.00 - 0.05 10*3/mm3 0.03 nRBC Latest Ref Range: 0.0 - 0.2 /100 WBC 0.0 Erythropoietin Latest Ref Range: 2.6 - 18.5 mIU/mL 25.2 (H) Assessment/Plan Gertrudis Daly is a 62 y.o. year old female referred for abnormal labs. Elevated ferritin: She has a mild elevation of ferritin. We will do testing to see if there is evidence of hemochromatosis. We discussed that ferritin can also be elevated in the setting of chronic inflammation and especially in the setting of chronic liver disease. She does have fatty liver and the ferritin elevation could be a consequence of this. Erythrocytosis: She has had a mild elevation of her hematocrit for over 2 years. I suspect this is due to untreated sleep apnea and overnight hypoxia. She has an erythropoietin level which is elevated, and this supports secondary erythrocytosis. I recommended that she contact her sleep physician and follow-up regarding CPAP treatment and strategies for being able to tolerate this. I will see her back in about 3 weeks to review her blood work. Nelly Clayton MD 11/28/2018 documented in this encounter Plan of Treatment Upcoming Encounters Date Type Department Care Team (Late st Contact Info) Description 03/13/2024 2:45 PM EST Office Visit [facility] CARDIOLOGY [address] [place] [address] [place] [address] Pj Ace MD [address] [place] [address] documented as of this encounter Procedures Procedure Name Priority Date/Time Associated Diagnosis Comments CBC WITH AUTO DIFFERENTIAL Routine 11/28/2018 1:50 PM EDT Elevated ferritin level HEMOCHROMATOSIS MUTATION Routine 11/28/2018 1:50 PM EDT Elevated ferritin level IRON PROFILEC Routine 11/28/2018 1:50 PM EDT Elevated ferritin level VITAMIN D,25-HYDROXY Routine 11/28/2018 1:50 PM EDT Hypercalcemia CBC AND DIFFERENTIAL Routine 11/28/2018 1:50 PM EDT Elevated ferritin level FERRITIN Routine 11/28/2018 1:50 PM EDT Elevated ferritin level COMPREHENSIVE METABOLIC PANEL Routine 11/28/2018 1:50 PM EDT Elevated ferritin level documented in this encounter Results * (ABNORMAL) CBC Auto Differential (11/28/2018 1:50 PM EDT) WBC 6.40 3.40 - 10.80 10*3/mm3 11/28/2018 1:53 PM EDT [facility] RBC 5.46(H) 3.77 - 5.28 10*6/mm3 11/28/2018 1:53 PM EDT [facility] Hemoglobin 15.7 12.0 - 15.9 g/dL 11/28/2018 [facility] Hematocrit 49.1(H) 34.0 - 46.6 % 11/28/2018 1:53 PM EDT [facility] RDW 13.8 12.3 - 15.4 % 11/28/2018 1:53 PM EDT [facility] MCV 90.0 79.0 - 97.0 fL 11/28/2018 1:53 PM EDT [facility] MCH 28.8 26.6 - 33.0 pg 11/28/2018 1:53 [facility] MCHC 32.0 31.5 - 35.7 g/dL 11/28/2018 1:53 PM EDT [facility] MPV 8.0 6.0 - 12.0 fL 11/28/2018 1:53 PM EDT [facility] Platelets 287 140 - 450 10*3/mm3 11/28/2018 1:53 PM EDT [facility] Neutrophil % 64.2 42.7 - 76.0 % 11/28/2018 1:53 [facility] Lymphocyte % 31.7 19.6 - 45.3 % 11/28/2018 1:53 PM EDT [facility] Monocyte % 4.1(L) 5.0 - 12.0 % 11/28/2018 1:53 PM [facility] Neutrophils, Absolute 4.10 1.70 - 7.00 10*3/mm3 11/28/2018 1:53 PM EDT [facility] Lymphocytes, Absolute 2.00 0.70 - 3.10 10*3/mm3 11/28/2018 1:53 PM EDT [facility] Monocytes, Absolute 0.30 0.10 - 0.90 10*3/mm3 11/28/2018 1:53 PM EDT [facility] Blood Venipuncture / Unknown 11/28/2018 1:50 PM EDT 11/28/2018 1:50 PM EDT us Nelly Clayton MD LAB BLOOD ORDERABLES Final Resul t Performing Organization Address [facility] de Phone Number [facility]
[address] [place] [address], * Vitamin D 25 Hydroxy (11/28/2018 1:50 PM EDT) Pathologist [facility] 25 Hydroxy, Vitamin D 33.2 30.0 - 100.0 ng/ml 11/29/2018 12:13 AM EDT [facility] Blood Venipuncture / Unknown 11/28/2018 1:50 PM EDT 11/28/2018 1:50 PM EDT Narrative [facility] - 11/29/2018 12:13 AM EDT Reference Range for Total Vitamin D 25(OH) Deficiency <20.0 ng/mL Insufficiency 21-29 ng/mL Sufficiency 30-100 ng/mL Toxicity >100 ng/ml us Nelly Clayton MD LAB BLOOD ORDERABLES Final Resul t Performing Organization Address [facility] Co de Phone Number [facility]
[address] [place] [address], * Hemochromatosis Mutation (11/28/2018 1:50 PM EDT) Pathologist [facility] Hemochromatosis Gene Comment 12/04/2018 5:07 PM EDT [facility] Comment: NO MUTATION IDENTIFIED Interpretation: This patient's sample was analyzed for the hereditary hemochromatosis (HH) mutations C282Y, H63D, S65C. No mutation was identified. The mutations analyzed by [facility] are most common in the population, and up to 90% of affected Caucasians will have a positive test result. Because this panel does not identify rare HH mutations or HH mutations found in other ethnic groups, there are a small number of people who may have a negative test but may actually be affected. The diagnosis of HH should include clinical findings and other test results such as transferrin-iron saturation and/or serum ferritin studies and/or liver biopsy. ??If this patient has a history of HH, in many cases a specific carrier risk can be determined based on this negative result. Methodology: DNA Analysis of the HFE gene was performed by PCR amplification followed by restriction enzyme digestion analyses. Reference: Elvis JS and Walker AP. (2000). Carolyne Test 4:97-101. Gill ME et al. (1999). AM J Prev Med 16:134-140. Rona Cabrera (2002). Lancet 360(0864):1673-73. Helen Meier et al. (2002). Blood Cells, Molecules. and Diseases. ??29(3):418-432. Rommel Townsend et al. (2003). Carolyne Med. 5(1):1-8. Marshal ANDREWS et al. (2003). Carolyne Med. 5(4):304-10. This test was developed and its performance characteristics determined by [facility]. It has not been cleared or approved by the Food and Drug Administration. Genetic counselors are available for health care providers to discuss results at [phone]. Jo Ann Branch, PhD, FACMG Jany Uribe, PhD, FACMG Orly Chacon MDannyS., PhD, FACMG Teri Palm, PhD, FACMG Bessie Atkinson, PhD, FACMG Oscar Su, PhD, FACMG Blood Venipuncture / Unknown 11/28/2018 1:50 PM EDT 11/28/2018 1:50 PM EDT Narrative [facility] - 12/04/2018 5:07 PM EDT Performed at: ??01 - [facility] [address] [facility], [place], [place] [id number] Clerical Aide: Ke Davis MD, Phone: ??[phone] us Nelly Clayton MD LAB BLOOD ORDERABLES Final Resul t [facility] [address] [place] [address], * Iron Profile (11/28/2018 1:50 PM EDT) Iron 85 37 - 145 mcg/dL 11/28/2018 5:37 PM EDT [facility] Iron Saturation (TSAT) 21 20 - 50 % 11/28/2018 5:37 PM EDT [facility] Transferrin 275 200 - 360 mg/dL 11/28/2018 5:37 PM EDT [facility] TIBC 410 298 - 536 mcg/dL 11/28/2018 5:37 PM EDT [facility] Blood Venipuncture / Unknown 11/28/2018 1:50 PM EDT 11/28/2018 1:50 PM EDT us Nelly Clayton MD LAB BLOOD ORDERABLES Final Resul t Performing Organization Address City/[facility] Co de Phone Number [facility]
[address] [place] [address], * (ABNORMAL) Ferritin (11/28/2018 1:50 PM EDT) Ferritin 235.10(H) 13.00 - 150.00 ng/mL 11/28/2018 5:48 PM EDT [facility] Blood Venipuncture / Unknown 11/28/2018 1:50 PM EDT 11/28/2018 1:50 PM EDT us Nelly Clayton MD LAB BLOOD ORDERABLES Final Resul t Performing Organization Address City/[facility] Co de Phone Number [facility]
[address] [place] [address], * (ABNORMAL) Comprehensive Metabolic Panel (11/28/2018 1:50 PM EDT) Glucose 102(H) 65 - 99 mg/dL 11/28/2018 5:39 PM EDT [facility] BUN 15 8 - 23 mg/dL 11/28/2018 5:39 PM EDT [facility] Creatinine 0.77 0.57 - 1.00 mg/dL 11/28/2018 5:39 PM EDT [facility] Sodium 143 136 - 145 mmol/L 11/28/2018 5:39 PM EDT [facility] Potassium 4.7 3.5 - 5.2 mmol/L 11/28/2018 5:39 PM EDT [facility] Chloride 101 98 - 107 mmol/L 11/28/2018 5:39 PM EDT [facility] CO2 30.0(H) 22.0 - 29.0 mmol/L 11/28/2018 5:39 PM EDT [facility] Calcium 10.5 8.6 - 10.5 mg/dL 11/28/2018 5:39 PM EDT [facility] Total Protein 7.8 6.0 - 8.5 g/dL 11/28/2018 5:39 PM EDT [facility] Albumin 4.40 3.50 - 5.20 g/dL 11/28/2018 5:39 PM EDT [facility] ALT (SGPT) 47(H) 1 - 33 U/L 11/28/2018 5:39 PM T [facility] AST (SGOT) 39(H) 1 - 32 U/L 11/28/2018 5:39 PM [facility] Comment:Specimen hemolyzed. Results may be affected. Alkaline Phosphatase 163(H) 39 - 117 U/L 11/28/2018 5:39 PM T [facility] Total Bilirubin 0.4 0.2 - 1.2 mg/dL 11/28/2018 5:39 PM T [facility] eGFR Non Amer 76 >60 mL/min/1.7 3 11/28/2018 5:39 PM EDT [facility] Globulin 3.4 gm/dL 11/28/2018 5:39 PM [facility] A/G Ratio 1.3 g/dL 11/28/2018 5:39 PM T [facility] BUN/Creatinine Ratio 19.5 7.0 - 25.0 11/28/2018 5:39 PM EDT [facility] Anion Gap 12.0 5.0 - 15.0 mmol/L 11/28/2018 5:39 PM EDT [facility] Blood Venipuncture / Unknown 11/28/2018 1:50 PM EDT 11/28/2018 1:50 PM EDT Narrative [facility] - 11/28/2018 5:39 PM EDT GFR Normal >60 Chronic Kidney Disease <60 Kidney Failure <15 us Nelly Clayton MD LAB BLOOD ORDERABLES Final Resul t [facility]
[address] [place] [address], documented in this encounter Visit Diagnoses Diagnosis Elevated ferritin level- Primary Other abnormal blood chemistry Hypercalcemia documented in this encounter Care Teams Crab Steamer Relationship Specialty Start Date End Date Ev Augustin APRN [address] [place] [address] PCP - General Internal Medicine 04/12/18 08/18/21 documented as of this encounter
--- OUTSIDE RECORDS SUMMARY | 2024-02-20 09:12 | XMS_ITS | Encounter Summary ---
[facility] Organization [facility] Address [address] [place] [address] Care Team Providers Care Eyeglass Lens Grinder Name Role Phone Ev Augustin APRN Primary Care Provider [phone] Encounter Details Date Type Department Care Team (Late st Contact Info) Description 10/13/2018 Telephone [facility] INTERNAL MEDICINE [address] [place] [address] Ev Augustin APRN [address] [place] [address] Social History Tobacco Use Types Packs/Day [...] Telephone Encounter - Mitzi Colón MA - 10/13/2018 10:09 AM EDT Called pt and she voiced understanding, she will come in for the blood work this week. * Telephone Encounter - Mitzi Colón MA - 10/13/2018 10:09 AM EDT ----- Message from Ev Augustin APRN sent at 10/12/2018 5:29 PM EDT ----- Call pt with labs. Her ferritin (iron stores) hemoglobin are continuing to trend up. I would like her to see a business account executive for further eval of this. Her liver enzymes are ok, still elevated but ok. Her kidney fx was at 62%. Avoid NSAIDS and make sure staying hydrated. Her calcium level was elevated. I have ordered a few more labs to help further eval her high hgb and calcium. She can stop by anytime this week to get these done please. I increased her requip back to 0.5mg (I sent her a new RX for a 0.5mg tab). I will see her in 6 months unless she needs to come in sooner. But again she needs the additional labs this week. documented in this encounter Plan of Treatment Upcoming Encounters Date Type Department Care Team (Late st Contact Info) Description 03/13/2024 2:45 PM EST Office Visit [facility] CARDIOLOGY [address] [place] [address] [place] [address] Pj Ace MD [address] [facility] [address] [address] documented as of this encounter Visit Diagnoses Not on filedocumented in this encounter Care Teams Eyeglass Lens Grinder Relationship Specialty Start Date End Date Ev Augustin APRN [address] [place] [id number] PCP - General Internal Medicine 04/12/18 08/18/21 documented as of this encounter
--- OUTSIDE RECORDS SUMMARY | 2024-02-20 09:12 | XMS_ITS | Encounter Summary ---
[facility] Address [address] [place] [address] Care Team Providers Care Engineering Clerk Name Role Phone Ev Augustin APRN Primary Care Provider +1 [phone] Reason for Referral * Consultation (Routine) - Closed Specialty Diagnoses / Procedures Referred By Contac t Referred To Contact Gastroenterology Diagnoses Gastroparesis Slime Hammer APRN Abell, Thomas Lyman, MD [address] [place] [address] Phone: tel: fax: Referral ID Status Reason Start Date Expiration Date V isits Requested Visits Authorized [id number] Closed Service Not Available In-House 11/12/2018 11/12/2019 1 1 Reason for Visit * Reason Comments Follow-up NAFLD Encounter Details Date Type Department Care Team (Late st Contact Info) Description 11/12/2018 11:00 AM EDT Office Visit [facility] GASTROENTEROLOGY [address] [address] Slime Hammer APRN NAFLD (nonalcoholic fatty liver disease) (Primary Dx); LFT elevation; Gastroparesis; Need for hepatitis B vaccination; Elevated ferritin; Elevated hemoglobin; Chronic constipation Social History Tobacco Use Types [...] Sign Reading Time Taken Comments Blood Pressure 122/78 11/12/2018 10:55 AM EDT Pulse 72 11/12/2018 10:55 AM EDT Temperature 36.4 ??C (97.6 ??F) 11/12/2018 10:55 AM E DT Respiratory Rate - - Oxygen Saturation 93% 11/12/2018 10:55 AM EDT Inhaled Oxygen Concentration - - Weight 81.4 kg (179 lb 6.4 oz) 11/12/2018 10:55 AM EDT Height 157.5 cm (5' 2 ) 11/12/2018 10:55 AM EDT Body Mass Index 32.81 11/12/2018 10:55 AM EDT documented in this encounter Patient Instructions * Patient Instructions* Slime Hammer APRN - 11/12/2018 11:00 AM EDT ?? Try OTC (over the counter) Tricia [...] documented in this encounter Progress Notes * Slime Hammer APRN - 11/12/2018 11:00 AM EDT Images from the original note were not included. GASTROENTEROLOGY OUTPATIENT ESTABLISHED PATIENT NOTE Patient: GERTRUDIS DALY : 1955 Date of Service: 11/12/2018 CC: Follow-up (NAFLD) Assessment/Plan ASSESSMENT & PLANS NAFLD (nonalcoholic fatty liver disease). Metavir score of F0 per liver US May 2018 LFT elevation. Stable and improving some ?? Pt is encouraged of wt control Gastroparesis Diabetes mellitus type 2 in obese (CMS/HCC). BMI 34.4 - Ambulatory Referral to gastroparesis specialist in [facility] instead since [place]. ?? Follow up with community health consultant as scheduled. ?? Follow up w/ double needle stitcher for DM2 mgt ?? Start metoclopramide (REGLAN) 10 MG tablet; Take 1 tablet po QID PRN, instead of scheduled ?? Start OTC Tricia root 500 mg TID. Small, frequent meals. Tries tricia marianne and crackers Need for hepatitis B vaccination - Hepatitis B Vaccine Adult IM. Last dose today Elevated ferritin Elevated hemoglobin (CMS/HCC) - Ferritin; Future - Reticulocytes; Future - Iron Profile; Future Chronic constipation r/t gastroparesis, meds, and/or opioid induced - DC Miralax. Start lubiprostone (AMITIZA) 24 MCG capsule; Take 1 capsule by mouth 2 (Two) Times a Day With Meals. Samples given. Pt is to call me and let me know of its efficacy so I can send in rx. Follow Up:Return in about 6 months (around 05/15/2019). DISCUSSION: The above plan was delineated in details with patient and all questions and concerns were answered. Patient is also given contact information. Patient is to return as scheduled or sooner if new problems arise. Subjective SUBJECTIVE History of Present Illness Ms. Gertrudis Dayl is a 62 y.o. female who is here for Follow-up (NAFLD) Hx of gastroparesis dx in Apr 2018 w/ Delayed gastric emptying with 80% emptying at 4 hours per gastric emptying study. Pt was started on scheduled Reglan for about 2 months w/ sx control. Pt was referred to a gastroparesis specialist. Has not seen gastroparesis doctor as referred d/t [facility] being too far for pt. DM2. A1C at 7.4. Still seeing double needle stitcher for DM. Drinks pickle juice helps w/ nausea. Has not tried tricia as previously recommended. Recently found w/ elevated ferritin, but iron profile not done. Pt is being scheduled to see a hematology for consult. With BID Miralax, pt has a BM twice a wk w/ Foster 1. Occasional rectal bleeding if strains hard. Pt tried Linzess in the past , but it caused gas. Tries fiber for constipation but it makes gastroparesis worsen. Does not drink or smoke. Hx of social drink only in the past Takes Tramadol daily EGD, done on 02/25/[address] Lackey due to dyspepsia and GERD, showed esophagitis, gastritis, but normal duodenum. Colonoscopy, done on 05/20/[address] ibrahim [...] No Pt currently or recently takes abx? No HENT: Negative. Eyes: Negative. Respiratory: Negative. Cardiovascular: Negative. Gastrointestinal: Positive for nausea. Endocrine: Negative. Genitourinary: Negative. Musculoskeletal: Negative. Skin: Negative. Allergic/Immunologic: Negative. Neurological: Negative. Hematological: Negative. Psychiatric/Behavioral: Negative. Subjective PAST MED HX: Pt has a past medical history of Anxiety, Benign essential hypertension, Cervical discdisorder, Chronic pain disorder, Colon polyps, Complication of device, Decreased libido, Dizziness,Encounter for long-term (current) use of medications, Extremity pain, Fatigue, Hip pain, History of alopecia, History of backache, History of colonoscopy, History of diabetes mellitus, History of insomnia, History of mastoiditis, History of migraine headaches, History of urinary stone, Infection ofkidney, Insomnia, Joint pain, Kidney infection, Low back pain, Lumbar radiculopathy, Lumbar radiculopathy, Lumbosacral disc disease, Migraine, Myofascial pain syndrome, Neck pain, Palpitations, Sleepapnea, Spinal cord stimulator status, Stress reaction, emotional, Urinary incontinence, Urinary tract infection, Visit for screening mammogram, and Vitamin D deficiency. PAST SURG HX: Pt has a past surgical history that includes Bladder surgery; Colonoscopy; Other surgical history; Back surgery; Other surgical history; Hysterectomy; and Spinal cord stimulator implant(2015). FAM HX: family history includes Diabetes in her other; Hypertension in her mother; Lung disease in her father; Peripheral vascular disease in her mother; Ulcers in her mother. SOC HX: Pt reports that she has never smoked. She has never used smokeless tobacco. She reports that she does not drink alcohol or use drugs. Objective OBJECTIVE Allergy: Pt is allergic to cuba inhibitors; amlodipine; beta adrenergic blockers; cyclobenzaprine; hydrochlorothiazide; hyzaar [losartan potassium-hctz]; latex; losartan; metformin; penicillins; pioglitazone; and spironolactone. MEDS: ??? albuterol (PROVENTIL HFA;VENTOLIN HFA) 108 (90 [...] Night., Disp: 90 tablet, Rfl: 1 ??? topiramate [...] prn, Disp: 180 tablet, Rfl: 2 ??? Alirocumab (PRALUENT) 75 MG/ML solution pen-injector, Inject 75 mg under the skin into the appropriate area as directed Every 14 (Fourteen) Days., Disp: 6 pen, Rfl: 1 ??? estradiol (ESTRACE VAGINAL) 0.1 MG/GM vaginal cream, Insert 2 g into the vagina 1 (One) Time Per Week., Disp: 42.5 g, Rfl: 5 Has not started januvia EXAMINATION: US LIVER- FINDINGS: Limited views of the pancreas are unremarkable. There is hepatopetal portal venous flow. Liver is increased in echogenicity without focal lesion identified. There is no intrahepatic or extrahepatic biliary ductal dilatation; the common bile duct diameter is 2 mm at the yolanda. There is no shadowing gallstone. There is no gallbladder wall thickening or pericholecystic fluid/inflammatory change. The right kidney is grossly unremarkable. Hepatic elastography was performed with a mean ShearWave velocity of 0.6 meters per second corresponding to a liver biopsy Metavir score of F 0. IMPRESSION: Fatty liver. EXAMINATION: NM GASTRIC EMPTYING- 04/09/2018 IMPRESSION: Delayed gastric emptying with 80% emptying at 4 hours and a T1 half of 2 hours. Lab Results Component Value Date WBC 7.58 10/11/2018 WBC 5.71 07/15/2018 WBC 7.23 12/26/2017 EOSABS 0.16 10/11/2018 EOSABS 0.13 07/15/2018 EOSABS 0.18 12/26/2017 HGB 16.5 (H) 10/11/2018 HGB 15.8 07/15/2018 HGB 14.4 12/26/2017 HCT 54.4 (H) 10/11/2018 HCT 50.7 (H) 07/15/2018 HCT 44.8 (H) 12/26/2017 MCV 93.0 10/11/2018 MCV 93.4 07/15/2018 MCV 90.9 12/26/2017 MCHC 30.3 (L) 10/11/2018 MCHC 31.2 (L) 07/15/2018 MCHC 32.1 12/26/2017 PLT 287 10/11/2018 PLT 268 07/15/2018 PLT 253 12/26/2017 Lab Results Component Value Date RDW 14.1 10/11/2018 RDW 13.1 07/15/2018 RDW 13.1 12/26/2017 MCHC 30.3 (L) 10/11/2018 MCHC 31.2 (L) 07/15/2018 MCHC 32.1 12/26/2017 Lab Results Component Value Date NA 142 10/11/2018 K 5.0 10/11/2018 CL 100 10/11/2018 CO2 27.6 10/11/2018 BUN 24 (H) 10/11/2018 BUN 12 07/15/2018 BUN 21 04/08/2018 CREATININE 0.92 10/11/2018 CREATININE 0.62 07/15/2018 CREATININE 0.85 04/08/2018 EGFRIFNONA 62 10/11/2018 EGFRIFNONA 98 07/15/2018 EGFRIFNONA 68 04/08/2018 GLUCOSE 153 (H) 10/11/2018 CALCIUM 11.0 (H) 10/11/2018 ANIONGAP 14.4 10/11/2018 Lab Results Component Value Date INR 0.99 10/02/2013 INR 1.00 09/18/2013 INR 1.02 04/29/2013 Lab Results Component Value Date HEPAIGM Non-Reactive 04/12/2018 HEPAIGM Non-Reactive 12/26/2017 HEPBSAG Non-Reactive 12/26/2017 HEPBIGMCORE Non-Reactive 12/26/2017 HEPCVIRUSABY Non-Reactive 12/26/2017 Liver Profile Lab Results Component Value Date AST 38 (H) 10/11/2018 AST 29 07/15/2018 AST 53 (H) 04/08/2018 AST 74 (H) 01/30/2018 AST 125 (H) 12/14/2017 AST 38 (H) 05/08/2016 AST 27 05/07/2015 AST 28 12/14/2014 AST 37 (H) 04/09/2014 Lab Results Component Value Date ALT 49 (H) 10/11/2018 ALT 37 (H) 07/15/2018 ALT 69 (H) 04/08/2018 ALT 114 (H) 01/30/2018 ALT 132 (H) 12/14/2017 ALT 67 (H) 05/08/2016 ALT 38 05/07/2015 ALT 37 12/14/2014 ALT 51 (H) 04/09/2014 Lab Results Component Value Date ALKPHOS 161 (H) 10/14/2018 ALKPHOS 161 (H) 10/11/2018 ALKPHOS 142 (H) 07/15/2018 ALKPHOS 147 (H) 04/08/2018 ALKPHOS 153 (H) 01/30/2018 GGT 49 (H) 04/08/2018 GGT 59 (H) 12/26/2017 Lab Results Component Value Date BILITOT 0.5 10/11/2018 BILITOT 0.3 07/15/2018 BILITOT 0.3 04/08/2018 ALBUMIN 4.60 10/11/2018 ALBUMIN 4.20 07/15/2018 ALBUMIN 4.41 04/08/2018 PROTEINTOT 8.2 10/11/2018 INR 0.99 10/02/2013 INR 1.00 09/18/2013 INR 1.02 04/29/2013 PROTIME 10.6 10/02/2013 PROTIME 10.7 09/18/2013 PROTIME 10.9 04/29/2013 PLT 287 10/11/2018 PLT 268 07/15/2018 PLT 253 12/26/2017 Lab Results Component Value Date LIPASE 55 (H) 12/14/2017 AMYLASE 28 (L) 12/14/2017 Immunity against Hep A and B Lab Results Component Value Date HAV Positive (A) 04/08/2018 HEPBSAB Non-Reactive 04/08/2018 Ferritin (Normal 20.00 - 291.00 ng/mL) Lab Results Component Value Date FERRITIN 225.00 (H) 10/11/2018 FERRITIN 184.00 (H) 07/15/2018 Co-morbidities Lab Results Component Value Date HGBA1C 7.4 10/11/2018 HGBA1C 7.6 07/15/2018 HGBA1C 7.2 04/08/2018 HGBA1C 7.7 12/14/2017 HGBA1C 8.9 05/09/2017 HLP Lab Results Component Value Date CHOL 146 07/15/2018 CHOL 170 04/08/2018 CHOL 284 (H) 12/14/2017 CHOL 251 (H) 09/12/2017 CHOL 290 (H) 05/08/2016 CHLPL 285 (H) 05/07/2015 CHLPL 280 (H) 04/09/2014 TRIG 158 (H) 07/15/2018 TRIG 385 (H) 04/08/2018 TRIG 452 (H) 12/14/2017 TRIG 288 (H) 09/12/2017 TRIG 232 (H) 05/08/2016 HDL 50 07/15/2018 HDL 51 04/08/2018 HDL 49 12/14/2017 HDL 46 09/12/2017 HDL 60 05/08/2016 VLDL 31.6 07/15/2018 LDL 64 07/15/2018 LDL 100 04/08/2018 LDL 229 (H) 12/14/2017 LDL 206 (H) 09/12/2017 LDL 200 (H) 05/08/2016 Lab Results Component Value Date THCURSCR Negative 01/30/2018 THCURSCR Negative 07/18/2016 PCPUR Negative 01/30/2018 PCPUR Negative 05/07/2017 COCAINEUR Negative 01/30/2018 COCAINEUR Negative 07/18/2016 METAMPSCNUR Negative 01/30/2018 METAMPSCNUR Negative 07/18/2016 LABOPIASCN Negative 01/30/2018 LABOPIASCN Negative 07/18/2016 AMPHETSCREEN Negative 01/30/2018 AMPHETSCREEN Negative 05/07/2017 LABBENZSCN Negative 01/30/2018 LABBENZSCN Negative 05/07/2017 TRICYCLICSCN Negative 01/30/2018 TRICYCLICSCN Negative 07/18/2016 LABMETHSCN Negative 01/30/2018 LABMETHSCN Negative 05/07/2017 BARBITSCNUR Negative 01/30/2018 BARBITSCNUR Negative 05/07/2017 OXYCODONESCN Negative 01/30/2018 OXYCODONESCN Negative 07/18/2016 PROPOXSCN Negative 01/30/2018 PROPOXSCN Negative 05/07/2017 BUPRENORSCNU Negative 01/30/2018 BUPRENORSCNU Negative 07/18/2016 Wt Readings from Last 5 Encounters: 11/12/18 81.4 kg (179 lb 6.4 oz) 10/11/18 79.8 kg (176 lb) 10/11/18 79.8 kg (176 lb) 07/25/18 81.9 kg (180 lb 9.6 oz) 07/15/18 82.6 kg (182 lb) body mass index is 32.81 kg/m??.,Temp: 97.6 ??F (36.4 ??C),BP: 122/78,Heart Rate: 72 Physical Exam General Well developed; well nourished. NAD ENT Anicteric sclerae. Oral mucosa pink and moist without thrush or lesions GI Abd soft, NT, ND, normal active bowel sounds. No HSM. No abd hernia Pt care team: Slime Hammer APRN & Domenica Qureshi Deborah 11/12/18 10:57 AM [facility]--Gastroenterology [phone] CC: Ev Oakley, VASILE [address] [facility] [address] / [facility] [address] FAX:[phone] documented in this encounter Plan of Treatment Upcoming Encounters Date Type Department Care Team (Late st Contact Info) Description 03/13/2024 2:45 PM EST Office Visit [facility] CARDIOLOGY [address] [place] [address] [place] [address] Pj Ace MD [address] [facility] [address] [place] [address] documented as of this encounter Results * Iron Profile (11/12/2018 11:48 AM EDT) Iron 108 37 - 145 mcg/dL 11/12/2018 6:29 PM EDT [facility] Iron Saturation (TSAT) 25 20 - 50 % 11/12/2018 6:29 PM EDT [facility] Transferrin 295 200 - 360 mg/dL 11/12/2018 6:29 PM EDT [facility] TIBC 440 298 - 536 mcg/dL 11/12/2018 6:29 PM EDT [facility] Blood Venipuncture / Unknown 11/12/2018 11:48 AM EDT 11/12/2018 11:52 AM EDT Slime Hammer APRN LAB BLOOD ORDERABLES Final Result Performing Organization Address City/[facility]/ZIP Co de Phone Number [facility]
[address] [place] [address], * Reticulocytes (11/12/2018 11:48 AM EDT) Reticulocyte % 1.47 0.70 - 1.90 % 11/12/2018 6:26 PM EDT [facility] Reticulocyte Absolute 0.0817 0.0200 - 0.1300 10*6/mm3 11/12/2018 6:26 PM EDT [facility] Blood Venipuncture / Unknown 11/12/2018 11:48 AM EDT 11/12/2018 11:52 AM EDT Slime Hammer APRN LAB BLOOD ORDERABLES Final Result Performing Organization Address [facility] Co de Phone Number [facility]
[address] [place] [address], * (ABNORMAL) Ferritin (11/12/2018 11:48 AM EDT) Ferritin 212.00(H) 13.00 - 150.00 ng/mL 11/12/2018 6:32 PM EDT [facility] Blood Venipuncture / Unknown 11/12/2018 11:48 AM EDT 11/12/2018 11:52 AM EDT Slime Hammer APRN LAB BLOOD ORDERABLES Final Result [facility]
[address] [place] [address], documented in this encounter Visit Diagnoses Diagnosis NAFLD (nonalcoholic fatty liver disease)- Primary LFT elevation Gastroparesis Need for hepatitis B vaccination Elevated ferritin Other abnormal blood chemistry Elevated hemoglobin Chronic constipation Unspecified constipation documented in this encounter Care Teams Engineering Clerk Relationship Specialty Start Date End Date Ev Augustin APRN [address] [place] [address] PCP - General Internal Medicine 04/12/18 08/18/21 documented as of this encounter
--- OUTSIDE RECORDS SUMMARY | 2024-02-20 09:12 | XMS_ITS | Encounter Summary ---
[facility] Address [address] [place] [address] Care Team Providers Care Managed Services Consultant Name Role Phone Ev Augustin APRN Primary Care Provider [phone] [phone] Encounter Details Date Type Department Care Team (Late st Contact Info) Description 11/20/[address] [facility] GASTROENTEROLOGY [address] [place] [address] Kiera Gregg RMA Social History Tobacco [...] Telephone Encounter - Slime Hammer APRN - 11/20/2018 5:20 PM EDT rx sent * Telephone Encounter - Kiera Gregg RMA - 11/20/2018 3:55 PM EDT Slime, Patient called. She stated Amitiza is working. Please send in script to prefer pharmacy. Thanks documented in this encounter Plan of Treatment Upcoming Encounters Date Type Department Care Team (Late st Contact Info) Description 03/13/2024 2:45 PM EST Office Visit [facility] CARDIOLOGY [address] [place] [address] [phone] Pj Ace MD [address] [facility] [address] [place] [address] documented as of this encounter Visit Diagnoses Diagnosis Chronic constipation Unspecified constipation documented in this encounter Care Teams Managed Services Consultant Relationship Specialty Start Date End Date Ev Augustin APRN [address] [place] [address] PCP - General Internal Medicine 04/12/18 08/18/21 documented as of this encounter
--- OUTSIDE RECORDS SUMMARY | 2024-02-20 09:12 | XMS_ITS | Encounter Summary ---
[facility] Address [address] [place] [address] Care Team Providers Care Training Administrator Name Role Phone Ev Augustin APRN Primary Care Provider +1 [phone] Encounter Details Date Type Department Care Team (Late st Contact Info) Description 12/19/2018 11:15 AM EDT Office Visit [facility] HEMATOLOGY & ONCOLOGY [address] [address] Nelly Clayton MD [address] [place] [address] Elevated ferritin, hemoglobin, and red blood cell count (Primary Dx) Social History Tobacco Use Types [...] Sign Reading Time Taken Comments Blood Pressure 150/79 12/19/2018 11:46 AM EDT Pulse 103 12/19/2018 11:46 AM EDT Temperature 37.1 ??C (98.8 ??F) 12/19/2018 11:46 AM E DT Respiratory Rate 16 12/19/2018 11:46 AM EDT Oxygen Saturation 91% 12/19/2018 11:46 AM EDT Inhaled Oxygen Concentration - - Weight 81.2 kg (179 lb) 12/19/2018 11:46 AM EDT Height 154.9 cm (5' 1 ) 12/19/2018 11:46 AM EDT Body Mass Index 33.82 12/19/2018 11:46 AM EDT documented in this encounter Progress Notes * Nelly Clayton MD - 12/19/2018 11:15 AM EDT PROBLEM LIST: 1. Elevated ferritin 2. NAFLD 3. Gastroparesis 4. DM2 Subjective CHIEF COMPLAINT: elevated ferritin and hgb HISTORY OF PRESENT ILLNESS: Gertrudis Daly returns for follow-up. She is here to review her lab results. Past Medical History, Past Surgical History, Social [...] Metformin ??? Penicillins ??? Pioglitazone ??? Spironolactone Objective BP 150/79 Pulse 103 Temp 98.8 ??F (37.1 ??C) Resp 16 Ht 154.9 cm (61 ) Wt 81.2 kg (179 lb) LMP (LMP Unknown) SpO2 91% BMI 33.82 kg/m?? Performance Status: 0 General: well appearing female in no acute distress Neuro: alert and oriented Skin: no rashes, lesions, bruising, or petechiae [...] Range: 5.0 - 12.0 % 4.1 (L) Hemochromatosis Gene Hemochromatosis Mutation Collected: 11/28/18 1350 Resulting lab: [facility] Value: Comment Comment: NO MUTATION IDENTIFIED Assessment/Plan Gertrudis Daly is a 62 y.o. year old female with elevated ferritin and erythrocytosis. Elevated ferritin: No evidence of hereditary hemochromatosis based on genetic testing. The ferritinelevation is fairly mild and I do not think any phlebotomy or other intervention is indicated at this time. This may be a consequence of secondary to steatohepatitis. She is scheduled to see a museum guide next week. Erythrocytosis: She had a mildly elevated hematocrit with a normal hemoglobin. Erythropoietin levelwas elevated and she has untreated sleep apnea. I would recommend following up regarding CPAP treatment. I will see her back in 6 months just to recheck labs and make sure these findings remain relativelystable. I spent 15 minutes with the patient. I spent > 50% percent of this time counseling and discussing prognosis, diagnostic testing, evaluation, current status and management. Nelly Clayton MD [facility] Hematology and Oncology 12/19/2018 CC: documented in this encounter Plan of Treatment Upcoming Encounters Date Type Department Care Team (Late st Contact Info) Description 03/13/2024 2:45 PM EST Office Visit [facility] CARDIOLOGY [address] [place] [address] [place] [address] Pj Ace MD [address] [place] [address] documented as of this encounter Results * (ABNORMAL) Iron Profile (08/20/2019 10:07 AM EDT) Iron 73 37 - 145 mcg/dL 08/20/2019 11:12 AM EDT [facility] Iron Saturation (TSAT) 17(L) 20 - 50 % 08/20/2019 11:12 AM EDT [facility] Transferrin 286 200 - 360 mg/dL 08/20/2019 11:12 AM EDT [facility] TIBC 426 298 - 536 mcg/dL 08/20/2019 11:12 AM EDT [facility] Blood Venipuncture / Unknown 08/20/2019 10:07 AM EDT 08/20/2019 10:07 AM EDT us Nelly Clayton MD LAB BLOOD ORDERABLES Final Resul t [facility]
[address] [place] [address], * Ferritin (08/20/2019 10:07 AM EDT) Ferritin 104.40 13.00 - 150.00 ng/mL 08/20/2019 11:30 AM EDT [facility] Blood Venipuncture / Unknown 08/20/2019 10:07 AM EDT 08/20/2019 10:07 AM EDT Narrative [facility] - 08/20/2019 11:30 AM EDT Results may be falsely decreased if patient taking Biotin. us Nelly Clayton MD LAB BLOOD ORDERABLES Final Resul t [facility]
[address] [place] [address], documented in this encounter Visit Diagnoses Diagnosis Elevated ferritin, hemoglobin, and red blood cell count- Primary documented in this encounter Care Teams Training Administrator Relationship Specialty Start Date End Date Ev Auugstin, SCRUB WOMAN [address] [place] [address] PCP - General Internal Medicine 04/12/18 08/18/21 documented as of this encounter
--- OUTSIDE RECORDS SUMMARY | 2024-02-20 09:13 | XMS_ITS | Encounter Summary ---
[facility] Address [address] [place] [address] Care Team Providers Care Piece Hand Name Role Phone Ev Augustin APRN Primary Care Provider [phone] [phone] Reason for Visit * Diagnostic Medical (Routine) - Canceled Specialty Diagnoses / Procedures Referred By Contac t Referred To Contact Gastroenterology Diagnoses Screening for colon cancer Procedures Colonoscopy Slime Hammer APRN [place], Gregory M, MD [address] [place] [address] Phone: tel: fax: Referral ID Status Reason Start Date Expiration Date V isits Requested Visits Authorized [id number] Canceled 05/13/2018 05/13/2019 1 1 Encounter Details Date Type Department Care Team (Late st Contact Info) Description 05/20/2018 8:30 AM EST Outside Facility Service [facility] GA[facility]OLOGY [address] [address] Matty Lackey MD [address] [place] [address] Social History Tobacco Use Types Packs/Day Years [...] [place] [address] Pj Ace MD [address] [facility] [address] [place] [address] documented as of this encounter Procedures Procedure Name Priority Date/Time Associated Diagnosis Comments SCANNED - COLONOSCOPY 05/20/2018 documented in this encounter Results * SCANNED - COLONOSCOPY (05/20/2018) Guerline Randall APRN CHART REVIEW TABS Final Res ult documented in this encounter Visit Diagnoses Not on filedocumented in this encounter Care Teams Piece Hand Relationship Specialty Start Date End Date Ev Augustin APRN [address] [place] [address] PCP - General Internal Medicine 04/12/18 08/18/21 documented as of this encounter
--- OUTSIDE RECORDS SUMMARY | 2024-02-20 09:13 | XMS_ITS | Encounter Summary ---
[facility] Address [address] [place] [id number] Care Team Providers Care Construction Equipment Overhauler Name Role Phone Ev Augustin APRN Primary Care Provider +1 [phone] Reason for Visit * Reason Comments Med Refill Encounter Details Date Type Department Care Team (Late Contact Info) Description 06/03/2018 Refill [facility] [address] [facility] [address] [place] [address] Slime Hammer APRN Chronic GERD; Encounter for long-term (current) use [...] HOSPITAL CARDIOLOGY [address] [place] [address] [place] [address] Pj Ace MD [address] [facility] [address] [place] [address] documented as of this encounter Visit Diagnoses Diagnosis Chronic GERD Encounter for long-term (current) use of NSAIDs Encounter for long-term (current) use of non-steroidal anti-inflammatories documented in this encounter Care Teams Construction Equipment Overhauler Relationship Specialty Start Date End Date Ev Augustin, SWITCH BOX INSTALLER [address] [place], [place] [id number] PCP - General Internal Medicine 04/12/18 08/18/21 documented as of this encounter
--- OUTSIDE RECORDS SUMMARY | 2024-02-20 09:13 | XMS_ITS | Encounter Summary ---
[facility] Organization [facility] Address [address] [place] [address] Care Team Providers Care Crop Consultant Name Role Phone Ev Augustin APRN Primary Care Provider +1 [phone] Reason for Visit * Health Education (Routine) - Closed Specialty Diagnoses / Procedures Referred By Contac t Referred To Contact Nutrition Diagnoses NAFLD (nonalcoholic fatty liver disease) Slime Hammer APRN [facility] [address] [place] [address] Phone: tel: fax: Referral ID Status Reason Start Date Expiration Date V isits Requested Visits Authorized [id number] Closed Specialty Services Required 02/08/2018 02/08/2019 12 12 Encounter Details Date Type Department Care Team (Latest Contact Info) Description 05/21/2018 1:53 PM EST - 05/21/2018 11:59 PM [facility] Hospital Encounter [facility] [address] [place] [address] Kandy Laureano, RD Discharge Disposition: Home or Self Care Social [...] - Inhaled Oxygen Concentration - - Weight 84.8 kg (187 lb) 05/21/2018 2:08 PM EST Height 157.5 cm (5' 2 ) 05/21/2018 2:08 PM EST Body Mass Index 34.2 05/21/2018 2:08 PM EST documented in this encounter Medications at Time of Discharge furosemide (LASIX) 20 MG tablet Take 1 tablet by mouth As Needed. albuterol (PROVENTIL HFA;VENTOLIN HFA) 108 (90 Base) MCG/ACT inhalerIndications: Bronchitis Inhale 2 puffs Every 6 (Six) Hours As Needed for Wheezing. 1 inhaler 7 04/22/19 20 Alirocumab (PRALUENT) 75 MG/ML solution pen-injectorIndicat ions:Mixed hyperlipidemia Inject 75 mg under the skin into the appropriate area as directed Every 14 (Fourteen) Days. 6 pen 1 8 07/09/19 19 aspirin 81 MG EC tablet Take 81 mg by mouth Daily. 11/13/19 19 baclofen (LIORESAL) 10 MG tablet Take 1/2 to 1 tab po Qd to bid prn 180 tablet 1 8 06/14/19 19 bisoprolol (ZEBeta) 5 MG tablet Take 5 mg by mouth Daily. 09/06/19 22 Empagliflozin (JARDIANCE) 10 MG tabletIndications:U ncontrolled type 2 diabetes mellitus with hyperglycemia, without long-term current use of insulin Take 10 mg by mouth Daily. 90 tablet 1 9 07/16/19 19 estradiol (ESTRACE VAGINAL) 0.1 MG/GM vaginal creamIndications:Va ginal atrophy Insert 2 g into the vagina 1 (One) Time Per Week. 42.5 g 5 7 04/22/19 20 exenatide er (BYDUREON BCISE) 2 MG/0.85ML auto-injector injectionIndication s:Uncontrolled type 2 diabetes mellitus with hyperglycemia, without long-term current use of insulin Inject 0.85 units in to the appropriate area one time weekly 12 pen 3 9 10/12/19 19 Liniments (SALONPAS) pads Apply topically. prn 05/26/19 20 losartan (COZAAR) 100 MG tablet Take 100 mg by mouth Daily. 11/10/19 22 metoclopramide (REGLAN) 5 MG tabletIndications:G astroparesis Take 1 tablet by mouth 4 (Four) Times a Day Before Meals & at Bedtime. 120 tablet 1 9 08/03/19 19 NIFEdipine CC (ADALAT CC) 90 MG 24 hr tablet Take 60 mg by mouth Daily. 8 12/30/19 21 omeprazole (priLOSEC) 40 MG capsuleIndications: Chronic GERD,Encounter for long-term (current) use of NSAIDs Take 1 capsule by mouth Every Morning. Take first thing in the morning on an empty stomach. Wait at least 30 min to 1hr before eating. 30 capsule 2 8 06/04/19 19 polyethylene glycol (MIRALAX) powderIndications:C hronic constipation Take 17 g by mouth Daily. Stir powder in 4 to 8 ounces of water, juice, soda, coffee, or tea until dissolved and administer immediately 1 each 2 9 07/26/19 19 predniSONE (DELTASONE) 20 MG tabletIndications:A cute left-sided low back pain without sciatica Take 1 tablet by mouth 2 (Two) Times a Day. 10 tablet 8 07/16/19 19 rOPINIRole (REQUIP) 0.25 MG tabletIndications:R LS (restless legs syndrome) Take 1 tablet by mouth Every Night. Take 1 hour before bedtime. 30 tablet 3 9 08/21/19 19 uoayvy-beklhvybx-sa gnesium sulfates (SUPREP BOWEL PREP KIT) 17.5-3.13-1.6 GM/177ML solution oral solution MUST HAVE RAIL SWITCHMAN. DON'T EAT DAY BEFORE APPT. Read instructions mailed to you 7 days before appt. Didn't get instructions? Call [phone]. 2 bottle 9 07/16/19 19 topiramate (TOPAMAX) 50 MG tablet TAKE ONE TABLET BY MOUTH TWICE DAILY 180 tablet 6 10/20/19 20 traMADol (ULTRAM) 50 MG tabletIndications:M eningeal adhesions,Postlamin ectomy syndrome of lumbar region,Herniated lumbar intervertebral disc A tablet PO TID PRN severe breakthrough pain 270 tablet 8 06/05/19 19 traZODone (DESYREL) 50 MG tablet Take 1 to 2 tabs po hs prn 180 tablet 2 8 06/14/19 19 documented as of this encounter Progress Notes * Kandy Laureano, RD - 05/21/2018 3:06 PM EST Adult Outpatient Nutrition Assessment/PES Patient Name: Gertrudis Gonzalez Date of : 1955 Assessment Date: 05/21/2018 Comments: Patient present for nutrition follow up related to fatty liver disease. Weight measurements taken today. See below. Goal completion is as follows: -Eat 3 meals per day. ??Avoid skipping meals: 100% -Choose grilled/baked meats instead of fried: 100% -Omit high fructose corn syrup by reading labels: 100% -Lose 0.5-1.0# of body weight per week: 100% Patient states that she is doing much better. She has lost 2 kg (4.4 lbs) since the last follow up visit. Congratulated patient on her progress. States that she has reduced her portion sizes and doesnot skip meals. She is not drinking any soda and only drinking tea with an artificial/0 kclaorie sweetner (truvia or sweet n low). Patient is eating canned fruit in water and a lower kcalorie bread. Continues to eat grilled/baked meats. Discussed adding canned/well cooked vegetables and adding light yogurt to her diet. Per 24 hour recall, patient is eating high fat foods but states that she only eats these foods occasionally. Discussed adding exercise to her routine. Plans to join the [employer] program and is walking occasionally. Added goal for exercise; 2 times per week. Will continueother goals as well. Scheduled a continued follow up appointment for 07/09/2018 at 2:[address] contact information given if needed. Total of 30 minutes spent with patient counseling. Thank you again for this referral. Anthropometrics Row Name 05/21/18 1408 Anthropometrics Height 157.5 cm (62 ) Weight 84.8 kg (187 lb) [place] Body Weight (IBW) [place] Body Weight (IBW) (kg) 50.43 % [place] Body Weight 168.19 Body Mass Index (BMI) BMI (kg/m2) 34.27 IBW Adjustment, Para/Tetraplegia 5% Adjustment, Para (IBW) 47.91 10% Adjustment, Para (IBW) 45.39 10% Adjustment, Tetra (IBW) 45.39 15% Adjustment, Tetra (IBW) 42.87 Nutritional Info/Activity Row Name 05/21/18 1504 Nutritional Information Food Allergies -- none Enter everything you can remember eating in the last 24 hours (1 day) Breakfast: small biscuit, 1/2sausage chikis; Lunch: tuna, 6 grapes, saltine crackers; Snack: pretzel thins; Dinner: chicken noodle soup Physical Activity Are you currently involved in an activity/exercise program? No How many minutes do you spend on exercise each day? 0 Estimated/Assessed Needs Row Name 05/21/18 1408 Calculation Measurements Height 157.5 cm (62 ) Evaluation of Prescribed Nutrient/Fluid Intake Row Name 05/21/18 1408 Calculation Measurements Height 157.5 cm (62 ) Problem/Interventions: Problem 1 Row Name 05/21/18 1505 Nutrition Diagnoses Problem 1 Problem 1 Overweight/Obesity Etiology (related to) -- excessive kcalorie intake Signs/Symptoms (evidenced by) BMI BMI 30 - 34.9 Resolved? -- ongoing Electronically signed by: Kandy Laureano RD 05/21/18 3:06 PM documented in this encounter Plan of Treatment Upcoming Encounters Date Type Department Care Team (Late st Contact Info) Description 03/13/2024 2:45 PM EST Office Visit [facility] CARDIOLOGY [address] [facility] [place] [address] Pj Ace MD [address] [place] [address] documented as of this encounter Visit Diagnoses Not on filedocumented in this encounter Care Teams Crop Consultant Relationship Specialty Start Date End Date Ev Augustin, CAPACITOR ASSEMBLER [address] [place] [address] PCP - General Internal Medicine 04/12/18 08/18/21 documented as of this encounter
--- OUTSIDE RECORDS SUMMARY | 2024-02-20 09:13 | XMS_ITS | Encounter Summary ---
[facility] Address [address] [place] [address] Care Team Providers Care Necktie Centralizing Machine Operator Name Role Phone Ev Augustin APRN Primary Care Provider [phone] [phone] Reason for Visit * Reason Onset Date Comments Med Refill 07/08/2018 Encounter Details Date Type Department Care Team (Late st Contact Info) Description 07/08/2018 Refill [facility] INTERNAL MEDICINE [address] [place] [address] Roc Tracey PA-C [address] [place] [address] Mixed hyperlipidemia Social History Tobacco Use Types [...] Miscellaneous Notes * Telephone Encounter - Naya Dang - 07/08/2018 10:30 AM EDT TOOK LAST DOSE OF PRALUENT 75 MG INJECTION. SHE NEEDS REFILLS ON THIS PRESCRIPTION AND FAX IT TO [employer] FAX NUMBER IS [phone] PHONE NUMBER IS [phone]. PATIENTS NUMBER IS [phone] documented in this encounter Plan of Treatment Upcoming Encounters Date Type Department Care Team (Late st Contact Info) Description 03/13/2024 2:45 PM EST Office Visit [facility] CARDIOLOGY [address] [place] [address] [place] [address] Pj Ace MD [address] [facility] [address] [place] [address] documented as of this encounter Visit Diagnoses Diagnosis Mixed hyperlipidemia documented in this encounter Care Teams Necktie Centralizing Machine Operator Relationship Specialty Start Date End Date Ev Augustin, STRATEGIC COMMUNICATIONS SPECIALIST [address] [place] [address] PCP - General Internal Medicine 04/12/18 08/18/21 documented as of this encounter
--- OUTSIDE RECORDS SUMMARY | 2024-02-20 09:13 | XMS_ITS | Encounter Summary ---
[facility] Address [address] [place] [address] Care Team Providers Care Saddle Tree Stitcher Name Role Phone Ev Augustin APRN Primary Care Provider +1 [phone] Reason for Visit * Reason Comments Follow-up DM 2 Encounter Details Date Type Department Care Team (Late st Contact Info) Description 10/11/2018 11:45 AM EDT Office Visit [facility] ENDOCRINOLOGY [address] [facility] [address] [place] [address] Roc Tracey PA-C [address] [facility] [address] [place], [place] [id number] Uncontrolled type 2 diabetes mellitus with hyperglycemia, [...] Reading Time Taken Comments Blood Pressure 118/80 10/11/2018 11:07 AM EDT Pulse 84 10/11/2018 11:07 AM EDT Temperature - - Respiratory Rate - - Oxygen Saturation 99% 10/11/2018 11:07 AM EDT Inhaled Oxygen Concentration - - Weight 79.8 kg (176 lb) 10/11/2018 11:07 AM EDT Height - - Body Mass Index 32.19 10/11/2018 10:02 AM EDT documented in this encounter Patient Instructions * Patient Instructions* Roc Tracey PA-C - 10/11/2018 11:45 AM EDT Try rosuvastatin (crestor) 5mg at bedtime for cholesterol. Stop Bydureon. Start Januvia 100mg daily. Start glimepiride 4mg BEFORE A MEAL. Continue Jardiance 25mg daily. documented in this encounter Progress Notes * Roc Tracey PA-C - 10/11/2018 11:45 AM EDT Chief Complaint F/u for Diabetes Mellitus. JONA Gonzalez is a 62 y.o. female with chronic back pain and HTN- on multiple antihypertensives followed by cardiology in [place], who is here today for f/u of Diabetes Mellitus type 2. The initial diagnosis of diabetes was made approximately 2015. Has underlying chronic nausea. A1C- 7.4 (10/11/18), 7.6 (07/15/18), 7.2 (04/08/18), 7.7 (12/14/17), 6.7 (09/12/17), 8.9 (05/2017) Labs reviewed: 09/12/17- GFR 73, LDL 206, TG 288 05/22/17- TSH 1.465 Diabetic complications: gastroparesis followed by GI at [facility], [place] Eye exam current (within one year): yes- no retinopathy Foot care and dental care: discussed Current diabetic medications include: Bydureon 2mg sc weekly Jardiance 25mg daily ACEI/ARB: losartan-hctz Statin: intolerant to statins, Repatha and Praluent not covered by insurance. Past medications: metformin (???caused blurred vision, went away when stopped taking metformin), invokana (insurance didn't cover but thinks this controlled glucose better), glimepiride (pt reported it made her feel weird when she took it), EDANos Diabetic Monitoring - no meter or log, [...] Wheezing., Disp: 1 inhaler, Rfl: 0 ??? aspirin 81 MG EC tablet, Take 81 mg by mouth Daily., Disp: , Rfl: ??? baclofen (LIORESAL) 10 MG tablet, Take [...] Times a Day., Disp: , Rfl: ??? Liniments (SALONPAS) pads, Apply topically. prn, [...] EATING, Disp: 30 capsule, Rfl: 2 ??? predniSONE (DELTASONE) 20 MG tablet, Take 20 mg by mouth Daily., Disp: , Rfl: ??? rOPINIRole (REQUIP) 0.25 MG tablet, TAKE 1 TABLET EVERY NIGHT 1 HOUR BEFORE BEDTIME, Disp: 30 tablet, Rfl: 1 ??? topiramate (TOPAMAX) 50 [...] Days., Disp: 6 pen, Rfl: 1 ??? glimepiride (AMARYL) 4 MG tablet, Take 1 po qd before a meal, Disp: 30 tablet, Rfl: 6 ??? rosuvastatin (CRESTOR) 5 MG tablet, Take [...] not nervous/anxious. Physical Exam BP 118/80 Pulse 84 Wt 79.8 kg (176 lb) LMP (LMP Unknown) SpO2 99% BMI 32.19 kg/m?? Body mass index is 32.19 kg/m??. Physical Exam Constitutional: She is oriented [...] 10/11/2018 HGBA1C 7.6 07/15/2018 HGBA1C 7.2 04/08/2018 Office Visit on 10/11/2018 Component Date Value Ref Range Status ??? Glucose 10/11/2018 134* 70 - 130 mg/dL Final ??? Hemoglobin A1C 10/11/2018 7.4 % Final No images are attached [...] hyperglycemia, without long-term current use of insulin ([facility]) - POC Glucose Fingerstick - POC Glycosylated Hemoglobin (Hb A1C) - SITagliptin (JANUVIA) 100 MG tablet; Take 1 tablet by mouth Daily. - Discontinue: glimepiride (AMARYL) 4 MG tablet; Take 1 po qd before a meal - glimepiride (AMARYL) 4 MG tablet; Take 1 po qd before a meal Mixed hyperlipidemia - rosuvastatin (CRESTOR) 5 MG tablet; Take 1 tablet by mouth Every Night. Diabetes Mellitus 2 is under fair control. -A1c 7.4 -dc bydureon bcise 2mg d/t gastroparesis -continue jardiance to 25mg daily. -start januvia 100mg daily -will try glimepiride again to see if she tolerates. Takes 4mg QD AC. Emphasis on taking AV to avoid hypoglycemia -intolerant to metformin -bring meter to f/u -encouraged to have eye exam -call if any issues 1. Diet: 3-4 [...] <180 2 hr postprandial 4. Microalbumin due 05/2018 5. Education performed during this visit: intermodal dispatcher diabetic complications discussed. , annual eye examinations at Ophthalmology discussed, dental hygiene discussed and foot care reviewed., home glucose monitoring emphasized, all medications, side effects and compliance discussed carefully and Hypoglycemia management and prevention reviewed. Reviewed ???ABCs??? of diabetes management (respective goals in parentheses): A1C (<7), blood pressure (<130/80), and cholesterol (LDL <100, if CVD <70). Hyperlipidemia -intolerant to statins -praluent/repatha not covered by insurance -try crestor 5mg qhs Patient Instructions Try rosuvastatin (crestor) 5mg at bedtime for cholesterol. Stop Bydureon. Start Januvia 100mg daily. Start glimepiride 4mg BEFORE A MEAL. Continue Jardiance 25mg daily. Follow up: Return in about 3 months (around 01/11/2019). Discussed the nature of the disease including, [...] Office Visit [facility] CARDIOLOGY [address] [facility] [place] [place] [address] [place] [address] Pj Ace MD [address] [facility] [address] [place] [address] documented as of this encounter Procedures Procedure Name Priority Date/Time Associated Diagnosis Comments POCT GLYCOSYLATED HEMOGLOBIN (HGB A1C) Routine 10/11/2018 11:15 AM EDT Uncontrolled type 2 diabetes mellitus with hyperglycemia, without long-term current use of insulin POCT GLUCOSE FINGERSTICK Routine 10/11/2018 11:15 AM EDT Uncontrolled type 2 diabetes mellitus with hyperglycemia, without long-term current use of insulin documented in this encounter Results * POC Glycosylated Hemoglobin (Hb A1C) (10/11/2018 11:15 AM EDT) Hemoglobin A1C 7.4 % [facility] Blood 10/11/2018 11:1 5 AM EDT us Roc Tracey PA-C POINT OF CARE TEST ORDERAB LES Final Result [facility]
[address] [place] [address], * (ABNORMAL) POC Glucose Fingerstick (10/11/2018 11:15 AM EDT) Glucose 134(A) 70 - 130 mg/dL [facility] Blood 10/11/2018 11:1 5 AM EDT Roc Tracey PA-C POINT OF CARE TEST ORDERAB LES Final Result [facility]
[address] [place] [address], documented in this encounter Visit Diagnoses Diagnosis Uncontrolled type 2 diabetes mellitus with hyperglycemia, without long-term current use of insulin- Primary Mixed hyperlipidemia documented in this encounter Care Teams Saddle Tree Stitcher Relationship Specialty Start Date End Date vE Augustin, QUALITY CONTROL MANAGER [address] [place] [address] PCP - General Internal Medicine 04/12/18 08/18/21 documented as of this encounter
--- OUTSIDE RECORDS SUMMARY | 2024-02-20 09:13 | XMS_ITS | Encounter Summary ---
[facility] Address [address] [place] [id number] Care Team Providers Care Casino Cage Manager Name Role Phone Ev Augustin APRN Primary Care Provider [phone] [phone] Encounter Details Date Type Department Care Team (Late st Contact Info) Description 07/18/2018 Telephone [facility] PAIN MANAGEMENT [address] [place] [address] Mel Peace, RN Social History Tobacco Use Types Packs/Day [...] encounter Miscellaneous Notes * Telephone Encounter - Mel Peace RN - 07/18/2018 9:11 AM EDT Spoke with patient. Advised that her papers were completed. She requested a mailed copy and to be faxed to [facility] to the number listed on the top. Papers faxed success recieved, copy sent to patient. She reports she previously paid the $25 fee. documented in this encounter Plan of Treatment Upcoming Encounters Date Type Department Care Team (Late st Contact Info) Description 03/13/2024 2:45 PM EST Office Visit [facility] CARDIOLOGY [address] [place] [address] Pj Ace MD [address] [facility] [address] [place] [address] documented as of this encounter Visit Diagnoses Not on filedocumented in this encounter Care Teams Casino Cage Manager Relationship Specialty Start Date End Date Ev Augustin APRN [address] [place] [address] PCP - General Internal Medicine 04/12/18 08/18/21 documented as of this encounter
--- OUTSIDE RECORDS SUMMARY | 2024-02-20 09:13 | XMS_ITS | Encounter Summary ---
[facility] Address [address] [place] [address] Care Team Providers Care Engraving Operator Name Role Phone Ev Augustin APRN Primary Care Provider [phone] [phone] Encounter Details Date Type Department Care Team (Late st Contact Info) Description 07/24/2018 Telephone [facility] INTER[facility]ICINE [address] [place] [address] Roc Tracey PA-C [address] [place] [address] Social History Tobacco Use Types Packs/Day [...] Telephone Encounter - Ambar Morrow MA - 07/24/2018 1:07 PM EDT Pt informed that Pa has been submitted * Telephone Encounter - Saadia Gary - 07/24/2018 9:49 AM EDT PT. CALLED AND STATED THAT HER PRALUENT NEEDS A PA; PT. STATED THAT YOU CAN CALL THIS PHONE NUMBER FOR THE PA documented in this encounter Plan of Treatment Upcoming Encounters Date Type Department Care Team (Late st Contact Info) Description 03/13/2024 2:45 PM EST Office Visit [facility] C[facility] [address] [place] [address] [place] [address] Pj Ace MD [address] [facility] [address] [facility] [address] [place] [address] documented as of this encounter Visit Diagnoses Not on filedocumented in this encounter Care Teams Engraving Operator Relationship Specialty Start Date End Date Ev Augustin, WOOD MILLER [address] [place] [address] PCP - General Internal Medicine 04/12/18 08/18/21 documented as of this encounter
--- OUTSIDE RECORDS SUMMARY | 2024-02-20 09:13 | XMS_ITS | Encounter Summary ---
[facility] Address [address] [place] [address] Care Team Providers Care Suppression Crew Leader Name Role Phone Ev Augustin APRN Primary Care Provider [phone] [phone] Encounter Details Date Type Department Care Team (Late st Contact Info) Description 04/12/2018 Prior Authorization [facility] ENDOCRINOLOGY [address] [address] Ambar Morrow MA Social History Tobacco Use Types Packs/Day Years [...] Telephone Encounter - Ambar Morrow MA - 04/12/2018 4:36 PM EST PA for Praluent was submitted and approved until 07/09/2018 documented in this encounter Plan of Treatment Upcoming Encounters Date Type Department Care Team (Late st Contact Info) Description 03/13/2024 2:45 PM EST Office Visit [facility] CARDIOLOGY [address] [facility] [place] [address] Pj Ace MD [address] [facility] [address] [place] [address] documented as of this encounter Visit Diagnoses Not on filedocumented in this encounter Care Teams Suppression Crew Leader Relationship Specialty Start Date End Date Ev Augustin, PNEUMATIC JACKETER [address] [place] [address] PCP - General Internal Medicine 04/12/18 08/18/21 documented as of this encounter
--- OUTSIDE RECORDS SUMMARY | 2024-02-20 09:13 | XMS_ITS | Encounter Summary ---
Author Organization [facility] Address [address] [place] [address] Care Team Providers Care Sheet Metal Mechanic Name Role Phone Ev Augustin APRN Primary Care Provider [phone] Reason for Referral * Consultation (Routine) - Closed Specialty Diagnoses / Procedures Referred By Yodit salinas Referred To Contact Gastroenterology Diagnoses Gastroparesis [place] [address] Phone: tel: Referral ID Status Reason Start Date Expiration Date V isits Requested Visits Authorized [id number] Closed Specialty Services Required 05/13/2018 05/13/2019 1 1 * Diagnostic Imaging (Routine) - Closed Specialty Diagnoses / Procedures Referred By Yodit salinas Referred To Contact Radiology Diagnoses NAFLD (nonalcoholic fatty liver disease) Procedures US Liver Slime Hammer APRN [address] [address] Phone: tel: Referral ID Status Reason Start Date Expiration Date Visits Re quested Visits Authorized [id number] Closed 05/13/2018 05/13/2019 1 1 Reason for Visit * Reason Comments Follow-up Encounter Details Date Type Department Care Team (Late st Contact Info) Description 05/13/2018 10:30 AM EST Office Visit [facility] GASTROENTEROLOGY [address] [place] [address] [address] [place] [address] Slime Hammer APRN NAFLD (nonalcoholic fatty liver disease) (Primary Dx); Screening for colon cancer; Chronic constipation; Gastroparesis; Need for hepatitis B vaccination; History of colon polyps; Liver enzyme elevation; Diabetes mellitus type 2 in obese [...] Reading Time Taken Comments Blood Pressure 138/76 05/13/2018 10:17 AM EST Pulse 85 05/13/2018 10:17 AM EST Temperature 36.4 ??C (97.6 ??F) 05/13/2018 10:[address] Respiratory Rate - - Oxygen Saturation 95% 05/13/2018 10:17 AM EST Inhaled Oxygen Concentration - - Weight 85.3 kg (188 lb) 05/13/2018 10:17 AM EST Height 157.5 cm (5' 2 ) 05/13/2018 10:17 AM EST Body Mass Index 34.39 05/13/2018 10:17 AM EST documented in this encounter Patient Instructions * Patient Instructions* Slime Hammer APRN - 05/13/2018 10:30 AM EST Images from the original note were not included. Gastroparesis Gastroparesis, also called delayed gastric emptying, is a condition in which food takes longer thannormal to empty from the stomach. The condition is usually long-lasting (chronic). What are the causes? This condition may be caused by: ?? An endocrine disorder, such as hypothyroidism or diabetes. Diabetes is the most common cause of this condition. ?? A nervous system disease, such as Parkinson disease or multiple sclerosis. ?? Cancer, infection, or surgery of the stomach or vagus nerve. ?? A connective tissue disorder, such as scleroderma. ?? Certain medicines. In most cases, the cause is not known. What increases the risk? This condition is more likely to develop in: ?? People with certain disorders, including endocrine disorders, eating disorders, amyloidosis, andscleroderma. ?? People with certain diseases, including Parkinson disease or multiple sclerosis. ?? People with cancer or infection of the stomach or vagus nerve. ?? People who have had surgery on the stomach or vagus nerve. ?? People who take certain medicines. ?? Women. What are the signs or symptoms? Symptoms of this condition include: ?? An early feeling of fullness when eating. ?? Nausea. ?? Weight loss. ?? Vomiting. ?? Heartburn. ?? Abdominal bloating. ?? Inconsistent blood glucose levels. ?? Lack of appetite. ?? Acid from the stomach coming up into the esophagus (gastroesophageal reflux). ?? Spasms of the stomach. Symptoms may come and go. How is this diagnosed? This condition is diagnosed with tests, such as: ?? Tests that check how long it takes food to move through the stomach and intestines. These tests include: ? Upper gastrointestinal (GI) series. In this test, X-rays of the intestines are taken after you drink a liquid. The liquid makes the intestines show up better on the X-rays. ? Gastric emptying scintigraphy. In this test, scans are taken after you eat food that contains a small amount of radioactive material. ? Wireless capsule GI monitoring system. This test involves swallowing a capsule that records information about movement through the stomach. ?? Gastric manometry. This test measures electrical and muscular activity in the stomach. It is done with a thin tube that is passed down the throat and into the stomach. ?? Endoscopy. This test checks for abnormalities in the lining of the stomach. It is done with a long, thin tube that is passed down the throat and into the stomach. ?? An ultrasound. This test can help rule out gallbladder disease or pancreatitis as a cause of your symptoms. It uses sound waves to take pictures of the inside of your body. How is this treated? There is no cure for gastroparesis. This condition may be managed with: ?? Treatment of the underlying condition causing the gastroparesis. ?? Lifestyle changes, including exercise and dietary changes. Dietary changes can include: ? Changes in what and when you eat. ? Eating smaller meals more often. ? Eating low-fat foods. ? Eating low-fiber forms of high-fiber foods, such as cooked vegetables instead of raw vegetables. ? Having liquid foods in place of solid foods. Liquid foods are easier to digest. ?? Medicines. These may be given to control nausea and vomiting and to stimulate stomach muscles. ?? Getting food through a feeding tube. This may be done in severe cases. ?? A gastric neurostimulator. This is a device that is inserted into the body with surgery. It helps improve stomach emptying and control nausea and vomiting. Follow these instructions at home: ?? Follow your health care provider's instructions about exercise and diet. ?? Take medicines only as directed by your health care provider. Contact a health care provider if: ?? Your symptoms do not improve with treatment. ?? You have new symptoms. Get help right away if: ?? You have severe abdominal pain that does not improve with treatment. ?? You have nausea that does not go away. ?? You cannot keep fluids down. This information is not intended to replace advice given to you by your health care provider. Make sure you discuss any questions you have with your health care provider. Document Released: 03/19/2006 Document Revised: 08/24/2016 Document Reviewed: 03/15/2015 [employer] Patient Education ?? 2018 [employer]. Metoclopramide tablets What is this medicine? METOCLOPRAMIDE (met oh kloe PRA mide) is used to treat the symptoms of gastroesophageal reflux disease (GERD) like heartburn. It is also used to treat people with slow emptying of the stomach and intestinal tract. This medicine may be used for other purposes; ask your health care provider or pharmacist if you have questions. COMMON BRAND NAME(S): Elissa What should I tell my health care provider before I take this medicine? They need to know if you have any of these conditions: -breast cancer -depression -diabetes -heart failure -high blood pressure -kidney disease -liver disease -Parkinson's disease or a movement disorder -pheochromocytoma -seizures -stomach obstruction, bleeding, or perforation -an unusual or allergic reaction to metoclopramide, procainamide, sulfites, other medicines, foods,dyes, or preservatives - or trying to get -breast-feeding How should I use this medicine? Take this medicine by mouth with a glass of water. Follow the directions on the prescription label.Take this medicine on an empty stomach, about 30 minutes before eating. Take your doses at regular intervals. Do not take your medicine more often than directed. Do not stop taking except on the advice of your doctor or health family day carer. A special MedGuide will be given to you by the pharmacist with each prescription and refill. Be sure to read this information carefully each time. Talk to your otorhinolaryngologist regarding the use of this medicine in children. Special care may be needed. Overdosage: If you think you have taken too much of this medicine contact a poison control center or emergency room at once. NOTE: This medicine is only for you. Do not share this medicine with others. What if I miss a dose? If you miss a dose, take it as soon as you can. If it is almost time for your next dose, take only that dose. Do not take double or extra doses. What may interact with this medicine? -acetaminophen -cyclosporine -digoxin -medicines for blood pressure -medicines for diabetes, including insulin -medicines for hay fever and other allergies -medicines for depression, especially a Monoamine Oxidase Inhibitor (MAOI) -medicines for Parkinson's disease, like levodopa -medicines for sleep or for pain -quinidine -tetracycline This list may not describe all possible interactions. Give your health care provider a list of all the medicines, herbs, non-prescription drugs, or dietary supplements you use. Also tell them if you smoke, drink alcohol, or use illegal drugs. Some items may interact with your medicine. What should I watch for while using this medicine? It may take a few weeks for your stomach condition to start to get better. However, do not take this medicine for longer than 12 weeks. The longer you take this medicine, and the more you take it, the greater your chances are of developing serious side effects. If you are an elderly patient, a female patient, or you have diabetes, you may be at an increased risk for side effects from this medicine. Contact your doctor immediately if you start having movements you cannot control such as lip smacking, rapid movements of the tongue, involuntary or uncontrollable movements of the eyes, head, armsand legs, or muscle twitches and spasms. Patients and their families should watch out for worsening depression or thoughts of suicide. Also watch out for any sudden or severe changes in feelings such as feeling anxious, agitated, panicky, irritable, hostile, aggressive, impulsive, severely restless, overly excited and hyperactive, or not being able to sleep. If this happens, especially at the beginning of treatment or after a change in dose, call your doctor. Do not treat yourself for high fever. Ask your doctor or health family day carer for advice. You may get drowsy or dizzy. Do not drive, use machinery, or do anything that needs mental alertness until you know how this drug affects you. Do not stand or sit up quickly, especially if you are anolder patient. This reduces the risk of dizzy or fainting spells. Alcohol can make you more drowsy and dizzy. Avoid alcoholic drinks. What side effects may I notice from receiving this medicine? Side effects that you should report to your doctor or health family day carer as soon as possible: -allergic reactions like skin rash, itching or hives, swelling of the face, lips, or tongue -abnormal production of milk in females -breast enlargement in both males and females -change in the way you walk -difficulty moving, speaking or swallowing -drooling, lip smacking, or rapid movements of the tongue -excessive sweating -fever -involuntary or uncontrollable movements of the eyes, head, arms and legs -irregular heartbeat or palpitations -muscle twitches and spasms -unusually weak or tired Side effects that usually do not require medical attention (report to your doctor or health family day carer if they continue or are bothersome): -change in sex drive or performance -depressed mood -diarrhea -difficulty sleeping -headache -menstrual changes -restless or nervous This list may not describe all possible side effects. Call your doctor for medical advice about side effects. You may report side effects to FDA at 9-496-HQR-9801. Where should I keep my medicine? Keep out of the reach of children. Store at room temperature between 20 and 25 degrees C (68 and 77 degrees F). Protect from light. Keep container tightly closed. Throw away any unused medicine after the expiration date. NOTE: This sheet is a summary. It may not cover all possible information. If you have questions about this medicine, talk to your doctor, pharmacist, or health care provider. ?? 2018 Elsevier/Gold Standard (2017-01-03 15:13:45) documented in this encounter Progress Notes * Slime Hammer, EXPANDED FUNCTION DENTAL ASSISTANT - 05/13/2018 10:30 AM EST Images from the original note were not included. GASTROENTEROLOGY OUTPATIENT ESTABLISHED PATIENT NOTE Patient: GERTRUDIS DALY : 1955 Date of Service: 05/13/2018 CC: Follow-up Assessment/Plan ASSESSMENT & PLANS NAFLD (nonalcoholic fatty liver disease) Liver enzyme elevation r/t problem # 1. Improving - US Liver (Elastography US) ??? Weight loss is only safe way to mgt fatty liver disease. ??? I recommend moderate, regular exercise as tolerated. ??? Follow up with transportation maintenance operator as scheduled. Pt is seeing them today. ??? Get vaccinated for Hepatitis A and B. This can done with us, PCP, or health department ??? Pt is encouraged to drink 3-4 cups of black coffee (caffeinated or decaffeinated) for NAFLD ??? Follow up with PCP and/or hi teacher for mgt of HTN, HLP, and DM. Statin therapy has been shown to be safe in patients with nonalcoholic fatty liver disease. PCP is encouraged to have a low threshold for starting statins, despite potential side effects of LFT elevation w/ statins ??? I encouraged pt to stay healthy in general. Avoid or modest alcohol consumption. Avoid recreation drugs and excessive acetaminophen. I explained to pt that fatty liver, if not controlled, can develop into liver cirrhosis Screening for colon cancer History of colon polyps - Colonoscopy; Future Chronic constipation - Start polyethylene glycol (MIRALAX) powder; Take 17 g by mouth Daily. Stir powder in 4 to 8 ounces of water, juice, soda, coffee, or tea until dissolved and administer immediately Gastroparesis Diabetes mellitus type 2 in obese (CMS/HCC). BMI 34.4 - Ambulatory Referral to gastroparesis specialist ?? Follow up with transportation maintenance operator as scheduled. Pt is seeing them today. ?? Follow up w/ hi teacher for DM2 mgt ?? Continue Reglan for now. Side effects discussed w/ pt. Need for hepatitis B vaccination - Hepatitis B Vaccine Adult IM. First dose today. Repeat in 1 month (nursing visit only) and again in 6 months. Follow Up:Return in about 6 months (around 11/10/2018) for Recheck. DISCUSSION: The above plan was delineated in details with patient and all questions and concerns were answered. Patient is also given contact information. Patient is to return as scheduled or sooner if new problems arise. Subjective SUBJECTIVE History of Present Illness Ms. Gertrudis Daly is a 62 y.o. female who is here for Follow-up on fatty liver and recent dx of gastroparesis. Pt has seen transportation maintenance operator twice. Pt has lost 3-4 lbs w/in the last 4 wks. Her DM2 and HLP are improving. 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 Pt denies any abdominal pain, including RUQ abdominal pain. Pt denies jaundice, pruritus, stool or urine color changes, palmar erythema, or any skin changes. No stigmata of liver disease. She has started on Reglan w/ sx control. Colonoscopy, done in [facility] in [place] about 4-5yrs ago. Reports of having polyp. I don't have copy of this colonoscopy or path report Per our electronic medical record, pathology report, done on 06/12/08 (done by Dr. Wayne Marshall), showed one ascending colon polyp. Bx showed tubular adenoma. ROS:Review of Systems Constitutional: Negative. Pt currently or recently takes NSAIDS ( (i.e Ibuprofen, Aleve, Advil, Exedrin, BC Powder, diclofenac, meloxicam, & Naproxen, etc)? Yes (aspirin) Pt currently or recently takes abx? No HENT: Negative. Eyes: Negative. Respiratory: Negative. Cardiovascular: Negative. Gastrointestinal: Negative. Endocrine: Negative. Genitourinary: Negative. Musculoskeletal: Negative. Skin: Negative. Allergic/Immunologic: Negative. Neurological: Negative. Hematological: Negative. Psychiatric/Behavioral: Negative. Objective OBJECTIVE Allergy: Pt is allergic to cuba inhibitors; amlodipine; beta adrenergic blockers; cyclobenzaprine; hydrochlorothiazide; hyzaar [losartan potassium-hctz]; latex; losartan; metformin; penicillins; pioglitazone; and spironolactone. MEDS:??? albuterol (PROVENTIL HFA;VENTOLIN HFA) 108 (90 Base) MCG/ACT inhaler, Inhale 2 puffs Every6 (Six) Hours As Needed for Wheezing., Disp: 1 inhaler, Rfl: 0 ??? Alirocumab (PRALUENT) 75 MG/ML solution pen-injector, Inject 75 mg under the skin into the appropriate area as directed Every 14 (Fourteen) Days., Disp: 6 pen, Rfl: 1 ??? aspirin 81 MG EC tablet, Take 81 mg by mouth Daily., Disp: , Rfl: ??? baclofen (LIORESAL) 10 MG tablet, Take 1/2 to 1 tab po Qd to bid prn, Disp: 180 tablet, Rfl: 1 ??? bisoprolol (ZEBeta) 5 MG tablet, Take 5 mg by mouth Daily., Disp: , Rfl: ??? Empagliflozin (JARDIANCE) 10 MG tablet, Take 10 mg by mouth Daily., Disp: 90 tablet, Rfl: 1 ??? exenatide er (BYDUREON BCISE) 2 MG/0.85ML auto-injector injection, Inject 0.85 units in to the appropriate area one time weekly, Disp: 12 pen, Rfl: 3 ??? furosemide (LASIX) 20 MG tablet, Take 20 mg by mouth 2 (Two) Times a Day., Disp: , Rfl: ??? Liniments (SALONPAS) pads, Apply topically. prn, Disp: , Rfl: ??? losartan (COZAAR) 100 MG tablet, Take 100 mg by mouth Daily., Disp: , Rfl: ? ? metoclopramide (REGLAN) 5 MG tablet, Take 1 tablet by mouth 4 (Four) Times a Day Before Meals & at Bedtime., Disp: 120 tablet, Rfl: 1 ??? NIFEdipine CC (ADALAT CC) 90 MG 24 hr tablet, Take 60 mg by mouth Daily., Disp: , Rfl: ??? omeprazole (priLOSEC) 40 MG capsule, Take 1 capsule by mouth Every Morning. Take first thing inthe morning on an empty stomach. Wait at least 30 min to 1hr before eating., Disp: 30 capsule, Rfl:2 ??? predniSONE (DELTASONE) 20 MG tablet, Take 1 tablet by mouth 2 (Two) Times a Day., Disp: 10 tablet, Rfl: 0 ??? rOPINIRole (REQUIP) 0.25 MG tablet, Take 1 tablet by mouth Every Night. Take 1 hour before bedtime., Disp: 30 tablet, Rfl: 3 ??? topiramate (TOPAMAX) 50 MG tablet, TAKE ONE TABLET BY MOUTH TWICE DAILY (Patient taking differently: TAKE ONE TABLET BY MOUTH as needed), Disp: 180 tablet, Rfl: 0 ??? traMADol (ULTRAM) 50 MG tablet, A tablet PO TID PRN severe breakthrough pain, Disp: 270 tablet,Rfl: 0 ??? traZODone (DESYREL) 50 MG tablet, Take 1 to 2 tabs po hs prn, Disp: 180 tablet, Rfl: 2 ??? estradiol (ESTRACE VAGINAL) 0.1 MG/GM vaginal cream, Insert 2 g into the vagina 1 (One) Time Per Week., Disp: 42.5 g, Rfl: 5 EXAMINATION: NM GASTRIC EMPTYING- 04/09/2018 INDICATION: Persistent [...] hours. Lab Results Component Value Date WBC 7.23 12/26/2017 WBC 5.09 05/08/2016 WBC 5.35 05/07/2015 EOSABS 0.18 12/26/2017 EOSABS 0.17 10/02/2013 EOSABS 0.15 09/18/2013 HGB 14.4 12/26/2017 HGB 15.5 05/08/2016 HGB 14.8 05/07/2015 HCT 44.8 (H) 12/26/2017 HCT 47.0 (H) 05/08/2016 HCT 43.8 05/07/2015 MCV 90.9 12/26/2017 MCV 92.0 05/08/2016 MCV 88.8 05/07/2015 MCHC 32.1 12/26/2017 MCHC 33.0 05/08/2016 MCHC 33.8 05/07/2015 PLT 253 12/26/2017 PLT 229 05/08/2016 PLT 231 05/07/2015 Lab Results Component Value Date NA 138 04/08/2018 K 4.7 04/08/2018 CL 103 04/08/2018 CO2 26.0 04/08/2018 BUN 21 04/08/2018 BUN 21 01/30/2018 BUN 18 12/14/2017 CREATININE 0.85 04/08/2018 CREATININE 0.80 01/30/2018 CREATININE 0.73 12/14/2017 EGFRIFNONA 68 04/08/2018 EGFRIFNONA 73 01/30/2018 EGFRIFNONA 81 12/14/2017 GLUCOSE 168 (H) 04/08/2018 CALCIUM 9.6 04/08/2018 ANIONGAP 9.0 04/08/2018 Lab Results Component Value Date HEPAIGM Non-Reactive 04/12/2018 HEPAIGM Non-Reactive 12/26/2017 HEPBSAG Non-Reactive 12/26/2017 HEPBIGMCORE Non-Reactive 12/26/2017 HEPCVIRUSABY Non-Reactive 12/26/2017 Liver Profile Lab Results Component Value Date AST 53 (H) 04/08/2018 AST 74 (H) 01/30/2018 AST 125 (H) 12/14/2017 AST 38 (H) 05/08/2016 AST 27 05/07/2015 AST 28 12/14/2014 AST 37 (H) 04/09/2014 Lab Results Component Value Date ALT 69 (H) 04/08/2018 ALT 114 (H) 01/30/2018 ALT 132 (H) 12/14/2017 ALT 67 (H) 05/08/2016 ALT 38 05/07/2015 ALT 37 12/14/2014 ALT 51 (H) 04/09/2014 Lab Results Component Value Date ALKPHOS 147 (H) 04/08/2018 ALKPHOS 153 (H) 01/30/2018 ALKPHOS 149 (H) 12/14/2017 ALKPHOS 115 (H) 05/08/2016 ALKPHOS 127 (H) 05/07/2015 GGT 49 (H) 04/08/2018 GGT 59 (H) 12/26/2017 Lab Results Component Value Date HGBA1C 7.2 04/08/2018 HGBA1C 7.7 12/14/2017 HGBA1C 8.9 05/09/2017 HLP Lab Results Component Value Date CHOL 170 04/08/2018 CHOL 284 (H) 12/14/2017 CHOL 251 (H) 09/12/2017 CHOL 290 (H) 05/08/2016 CHLPL 285 (H) 05/07/2015 CHLPL 280 (H) 04/09/2014 TRIG 385 (H) 04/08/2018 TRIG 452 (H) 12/14/2017 TRIG 288 (H) 09/12/2017 TRIG 232 (H) 05/08/2016 TRIG 251 (H) 05/07/2015 HDL 51 04/08/2018 HDL 49 12/14/2017 HDL 46 09/12/2017 HDL 60 05/08/2016 HDL 56 05/07/2015 LDL 100 04/08/2018 LDL 229 (H) 12/14/2017 LDL 206 (H) 09/12/2017 LDL 200 (H) 05/08/2016 LDL 212 (H) 05/07/2015 Wt Readings from Last 5 Encounters: 05/13/18 85.3 kg (188 lb) 04/17/18 86.8 kg (191 lb 6.4 oz) 04/12/18 85.7 kg (189 lb) 04/08/18 87.1 kg (192 lb) 03/12/18 86.2 kg (190 lb) body mass index is 34.39 kg/m??.,Temp: 97.6 ??F (36.4 ??C),BP: 138/76,Heart Rate: 85 Physical Exam General Well developed; well nourished; no acute distress. ENT Oral mucosa pink and moist without thrush or lesions. GI Abd soft, NT, ND, normal active bowel sounds. Obese. No abd hernia Pt care team: Slime Hammer APRN & ADDI Carr 05/13/18 10:19 AM [facility]--Gastroenterology [phone] CC: Ev Oakley APRN [address] [facility] [address] / [facility] [address] FAX:[phone] documented in this encounter Plan of Treatment Upcoming Encounters Date Type Department Care Team (Late st Contact Info) Description 03/13/2024 2:45 PM EST Office Visit [facility] CARDIOLOGY [address] [place] [address] [place] [address] Pj Ace MD [address] [facility] [address] [place] [address] documented as of this encounter Procedures Procedure Name Priority Date/Time Associated Diagnosis Comments ENDOSCOPY, INT 02/25/2018 documented in this encounter Results * US Liver (05/16/2018 6:00 PM EST) Anatomical Region Laterality Modality Body, Abdomen Ultrasound 05/17/2018 9:47 AM EST Impressions 05/17/2018 10:23 AM EST Fatty liver. D: ??05/17/2018 E: ??05/17/2018 This report was finalized on 05/17/2018 10:23 AM by Wayne Guallpa. Narrative 05/17/2018 10:23 AM EST EXAMINATION: US LIVER- INDICATION: LFT elevation. TECHNIQUE: ??Multiplanar nicholson scale and color Doppler images of the right upper quadrant were obtained. COMPARISONS: ??Complete abdomen ultrasound 12/26/2017. FINDINGS: ??Limited views of the pancreas are unremarkable. ??There is hepatopetal portal venous flow. Liver is increased in echogenicity without focal lesion identified. ??There is no intrahepatic or extrahepatic biliary ductal dilatation; the common bile duct diameter is 2 mm at the yolanda. There is no shadowing gallstone. ??There is no gallbladder wall thickening or pericholecystic fluid/inflammatory change. The right kidney is grossly unremarkable. Hepatic elastography was performed with a mean ShearWave velocity of 0.6 meters per second corresponding to a liver biopsy Metavir score of F 0. Procedure Note Wayne Guallpa MD - 05/17/2018 EXAMINATION: US LIVER- INDICATION: LFT elevation. TECHNIQUE: Multiplanar nicholson scale and color Doppler images of the right upper quadrant were obtained. COMPARISONS: Complete abdomen ultrasound 12/26/2017. FINDINGS: Limited views of the pancreas are [...] score of F 0. IMPRESSION: Fatty liver. E: 05/17/2018 This report was finalized on 05/17/2018 10:23 AM by Wayne Guallpa. us Slime Hammer APRN IMG US ORDERABLES Fi nal Result * ENDOSCOPY, INT (02/25/2018) us Guerline Randall APRN INTERFACE NEEDS Final Result documented in this encounter Visit Diagnoses Diagnosis NAFLD (nonalcoholic fatty liver disease)- Primary Screening for colon cancer Special screening for malignant neoplasms, colon Chronic constipation Unspecified constipation Gastroparesis Need for hepatitis B vaccination History of colon polyps Liver enzyme elevation Diabetes mellitus type 2 in obese Type II or unspecified type diabetes mellitus without mention of complication, not stated as uncontrolled NAFLD (nonalcoholic fatty liver disease) documented in this encounter Care Teams Sheet Metal Mechanic Relationship Specialty Start Date End Date Ev Augustin APRN [address] [place] [address] PCP - General Internal Medicine 04/12/18 08/18/21 documented as of this encounter
--- OUTSIDE RECORDS SUMMARY | 2024-02-20 09:13 | XMS_ITS | Encounter Summary ---
[facility] Address [address] [place] [address] Care Team Providers Care Field Training Agent Name Role Phone Guerline Randall APRN Primary Care Provider [phone] Encounter Details Date Type Department Care Team (Late st Contact Info) Description 04/09/2018 Telephone [facility] GASTROENTEROLOGY [address] [place] [address] [address] [place] [address] Slime Hammer APRN Social History Tobacco Use Types Packs/Day Years [...] Telephone Encounter - Kiera Gregg RMA - 04/10/2018 9:58 AM EST Called patient and gave gastric emptying study results. I also called Main lab Chemistry and spoke with Nancy. She agreed to add on Hepatitis A Antibody, total lab to recent specimen collected. * Telephone Encounter - Slime Hmamer APRN - 04/09/2018 6:44 PM EST Images from the original note were not included. Domenica Moctezuma let pt know that gastric emptying study shows gastroparesis or slow digestion or emptying. Rx for Reglan is sent to pharmacy. Keep f/u appt Also, pls ask lab to add on Hepatitis A Antibody, Total [[id number]] to lab sample collected on 04/08/18 . documented in this encounter Plan of Treatment Upcoming Encounters Date Type Department Care Team (Late st Contact Info) Description 03/13/2024 2:45 PM EST Office Visit [facility] CARDIOLOGY [address] [place] [address] [place] [address] Pj Ace MD [address] [facility] E [facility] [address] [place] [address] documented as of this encounter Procedures Procedure Name Priority Date/Time Associated Diagnosis Comments GAMMA GT Add-On 04/08/2018 4:26 PM EST Abnormal levels of other serum enzymes LFT elevation documented in this encounter Results * Hepatitis B Surface Antibody (04/08/2018 4:26 PM EST) Hep B S Ab Non-Reacti ve Non-Reacti ve 04/09/2018 10:04 PM EST [facility] Blood Venipuncture / Unknown 04/08/2018 4:26 PM EST 04/08/2018 4:26 PM EST Slime Hammer APRN LAB BLOOD ORDERABLES Final Result [facility]
[address] [place] [address], * (ABNORMAL) Hepatitis A Antibody, Total (04/08/2018 4:26 PM EST) Hep A Total Ab Positive(A ) Negative 04/11/2018 10:18 AM EST [facility] Blood Venipuncture / Unknown 04/08/2018 4:26 PM EST 04/10/2018 10:18 AM EST Narrative [facility] - 04/11/2018 10:18 AM EST Performed at: ??01 - [facility] [address] ??[id number] Dials Supervisor: Malik Hall PhD, Phone: ??[phone] Slime Hammer APRN LAB BLOOD ORDERABLES Final Result [facility] [address] [place] [address], * (ABNORMAL) Gamma GT (04/08/2018 4:26 PM EST) GGT 49(H) 0 - 37 U/L 04/09/2018 10:04 PM EST [facility] Blood Venipuncture / Unknown 04/08/2018 4:26 PM EST 04/08/2018 4:26 PM EST Slime Hammer APRN LAB BLOOD ORDERABLES Final Result [facility]
[address] [place] [address], documented in this encounter Visit Diagnoses Diagnosis Gastroparesis- Primary LFT elevation Abnormal levels of other serum enzymes Encounter for screening for other viral diseases documented in this encounter Care Teams Field Training Agent Relationship Specialty Start Date End Date Guerline Randall APRN Desiree [address] [facility] [address] [place] [address] PCP - General Family Medicine 12/19/17 04/11/18 documented as of this encounter
--- OUTSIDE RECORDS SUMMARY | 2024-02-20 09:13 | XMS_ITS | Encounter Summary ---
[facility] Address [address] [place] [id number] Care Team Providers Care Marble Chip Terrazzo Worker Name Role Phone Ev Augustin APRN Primary Care Provider [phone] Reason for Visit * Reason Comments Med Refill Encounter Details Date Type Department Care Team (Late Contact Info) Description 08/20/2018 Refill [facility] INTERNAL MEDICINE [address] [place] [address] Ev Augustin, VASILE [address] [place], [place] [id number] RLS (restless legs syndrome) Social History Tobacco [...] HOSPITAL CARDIOLOGY [address] [place] [address] [address] Pj Ace MD [address] [facility] [address] [place] [address] documented as of this encounter Visit Diagnoses Diagnosis RLS (restless legs syndrome) Restless legs syndrome (RLS) documented in this encounter Care Teams Marble Chip Terrazzo Worker Relationship Specialty Start Date End Date Ev Augustin, VASILE [address] [place] [address] PCP - General Internal Medicine 04/12/18 08/18/21 documented as of this encounter
--- OUTSIDE RECORDS SUMMARY | 2024-02-20 09:13 | XMS_ITS | Encounter Summary ---
[facility] [address] [place] [id number] Care Team Providers Care Maintenance Engineer Oil Field Name Role Phone Ev Augustin APRN Primary Care Provider [phone] Reason for Visit * Reason Comments Med Refill Encounter Details Date Type Department Care Team (Late st Contact Info) Description 08/02/2018 Telephone [facility] GASTROENTEROLOGY [address] [place] [phone] Slime Hammer APRN Med Refill Social History Tobacco Use Types [...] Telephone Encounter - Kiera Gregg RMA - 08/06/2018 9:38 AM EDT Called patient. Gave her Slime's recommendation. Patient voiced understanding. * Telephone Encounter - Slime Hammer APRN - 08/02/2018 5:59 PM EDT Domenica mondragon let pt know that I'm decreasing Reglan fr QID to BID. I recommend adding OTC tricia root tabs BID. I try not to keep pt on Reglan detention. documented in this encounter Plan of Treatment Upcoming Encounters Date Type Department Care Team (Late st Contact Info) Description 03/13/2024 2:45 PM EST Office Visit [facility] CARDIOLOGY [address] [place] [place] [address] [address] Pj Ace MD 1720 [facility] [address] [address] documented as of this encounter Visit Diagnoses Diagnosis Gastroparesis documented in this encounter Care Teams Maintenance Engineer Oil Field Relationship Specialty Start Date End Date Ev Augustin APRN [address] [place] [address] PCP - General Internal Medicine 04/12/18 08/18/21 documented as of this encounter
--- OUTSIDE RECORDS SUMMARY | 2024-02-20 09:13 | XMS_ITS | Encounter Summary ---
[facility] Address [address] [place] [address] Care Team Providers Care Roller Gold Leaf Name Role Phone Ev Augustin APRN Primary Care Provider [phone] Encounter Details Date Type Department Care Team (Late st Contact Info) Description 08/09/2018 Telephone [facility] PAIN MANAGEMENT [address] [address] Kandi Myrick MA Social History Tobacco Use Types Packs/Day [...] Telephone Encounter - Kandi Myrick MA - 08/09/2018 11:03 AM EDT Spoke with Dr. Adams. He states no traction for patient. Called Emily back and let her know. Understanding verbalized * Telephone Encounter - Kandi Myrick MA - 08/09/2018 10:55 AM EDT Emily from [facility] called. Patient's physical therapist would like to know if it's okay to do lumbar traction. Please advise documented in this encounter Plan of Treatment Upcoming Encounters Date Type Department Care Team (Late st Contact Info) Description 03/13/2024 2:45 PM EST Office Visit [facility] CARDIOLOGY [address] [place] [phone] Pj Ace MD [address] [facility] [address] [place] [address] documented as of this encounter Visit Diagnoses Not on filedocumented in this encounter Care Teams Roller Gold Leaf Relationship Specialty Start Date End Date Ev Augustin APRN [address] [place] [address] PCP - General Internal Medicine 04/12/18 08/18/21 documented as of this encounter
--- OUTSIDE RECORDS SUMMARY | 2024-02-20 09:13 | XMS_ITS | Encounter Summary ---
[facility] Address [address] [place] [address] Care Team Providers Care Tumbler Dyeing Machine Operator Name Role Phone Ev Augustin APRN Primary Care Provider [phone] Encounter Details Date Type Department Care Team (Late st Contact Info) Description 05/16/2018 Telephone [facility] INTERNAL MEDICINE [address] [place] [address] Ev Augustin APRN [address] [place] [address] Social History Tobacco Use Types Packs/Day [...] Telephone Encounter - Mitzi Colón MA - 05/16/2018 11:02 AM EST Called pt and left vm to return my call regarding labs. Expressed I was in office until 7 tonight. * Telephone Encounter - Mitzi Colón MA - 05/16/2018 11:02 AM EST ----- Message from Ev Augustin APRN sent at 05/13/2018 2:33 PM EST ----- Please call pt. We rcvd GI specialist note and recommendation for cholesterol med statin is noted. This can help some with fatty liver disease. If pt is agreeable, I would like to send her a prescription for atorvastatin (lipitor) take once per day in evening. Possible side effects of muscle aches.Let me know if she is ok with this and I will send RX. She would need to come see me in 6 weeks forfollow up to make sure her liver enzymes tolerated new med ok. Encourage diet/exercise as well for fatty liver. documented in this encounter Plan of Treatment Upcoming Encounters Date Type Department Care Team (Late st Contact Info) Description 03/13/2024 2:45 PM EST Office Visit [facility] CARDIOLOGY [address] [place] [address] [place] [phone] Pj Ace MD [address] [place] [address] documented as of this encounter Visit Diagnoses Not on filedocumented in this encounter Care Teams Tumbler Dyeing Machine Operator Relationship Specialty Start Date End Date Ev Augustin APRN [address] [place] [address] PCP - General Internal Medicine 04/12/18 08/18/21 documented as of this encounter
--- OUTSIDE RECORDS SUMMARY | 2024-02-20 09:13 | XMS_ITS | Encounter Summary ---
Author Organization [facility] Address [address] [place] [address] Care Team Providers Care Gerontology Aide Name Role Phone Guerline Randall APRN Primary Care Provider [phone] Reason for Referral * Diagnostic Imaging (Routine) - Closed Specialty Diagnoses / Procedures Referred By Yodit salinas Referred To Contact Radiology Diagnoses Dyspepsia Nausea Procedures NM Gastric Emptying Slime Hammer APRN [facility] [address] [facility] [address] [address] Phone: tel: Referral ID Status Reason Start Date Expiration Date Visits Re quested Visits Authorized [id number] Closed 03/09/2018 03/09/2019 1 1 Reason for Visit * Diagnostic Imaging (Routine) - Closed Specialty Diagnoses / Procedures Referred By Yodit salinas Referred To Contact Radiology Diagnoses Dyspepsia Nausea Procedures NM Gastric Emptying Slime Hammer APRN [facility] [address] [address] Phone: tel: Referral ID Status Reason Start Date Expiration Date Visits Re quested Visits Authorized [id number] Closed 03/09/2018 03/09/2019 1 1 Encounter Details Date Type Department Care Team (Latest Contact Info) Description 04/09/2018 8:18 AM EST - 04/09/2018 11:59 PM EST Hospital Encounter [facility] NUCLEAR MEDICINE [address] [place] [address] Dyspepsia; Nausea; LFT elevation Discharge Disposition: Home or Self Care Social [...] Take 1 tablet by mouth As Needed. acetaminophen (TYLENOL) 500 MG tablet Take 1 tablet by mouth 2 (Two) Times a Day. Every 4 to 6 hours as needed 4 05/13/19 19 albuterol (PROVENTIL HFA;VENTOLIN HFA) 108 (90 Base) [...] 5 mg by mouth Daily. 09/06/19 22 desvenlafaxine (PRISTIQ) 50 MG 24 hr tablet Take 1 tablet by mouth Daily. 7 05/13/19 19 Empagliflozin (JARDIANCE) 10 MG tabletIndications:U ncontrolled type [...] eating. 30 capsule 2 8 06/04/19 19 predniSONE (DELTASONE) 20 MG tabletIndications:A cute left-sided low back pain without sciatica Take 1 tablet by mouth 2 (Two) Times a Day. 10 tablet 8 07/16/19 19 rOPINIRole (REQUIP) 0.25 MG tabletIndications:R LS (restless legs syndrome) Take 1 tablet by mouth Every Night. Take 1 hour before bedtime. 30 tablet 3 7 04/13/19 19 rosuvastatin (CRESTOR) 20 MG tabletIndications:M ixed hyperlipidemia Take 1 tablet by mouth Every Night. 30 tablet 3 9 05/13/19 19 topiramate (TOPAMAX) 50 MG tablet TAKE [...] 06/14/19 19 documented as of this encounter Plan of Treatment Upcoming Encounters Date Type Department Care Team (Late st Contact Info) Description 03/13/2024 2:45 PM EST Office Visit [facility] CARDIOLOGY [address] [place] [address] [address] Pj Ace MD [address] [facility] [address] [place] [address] documented as of this encounter Procedures Procedure Name Priority Date/Time Associated Diagnosis Comments NM GASTRIC EMPTYING Routine 04/09/2018 1 :09 PM EST Dyspepsia Nausea HEPATITIS A ANTIBODY, TOTAL Routine 04/08/2018 4:26 PM EST LFT elevation documented in this encounter Results * NM Gastric Emptying (04/09/2018 1:09 PM EST) Anatomical Region Laterality Modality Body N/A Nuclear Medicine 04/09/2018 4:03 PM EST Impressions 04/09/2018 4:06 PM EST Delayed gastric emptying with 80% emptying at 4 hours and a T1 half of 2 hours. D: ??04/09/2018 E: ??04/09/2018 This report was finalized on 04/09/2018 4:[address] Nelson Desouza MD. Narrative 04/09/2018 4:06 PM EST EXAMINATION: NM GASTRIC EMPTYING- 04/09/2018 INDICATION: Persistent nausea, vomiting and abdominal pain; R10.13-Epigastric pain; R11.0-Nausea ? TECHNIQUE: The patient ingested 1.1 mCi technetium sulfur colloid. Images were obtained over a 4 hour duration. COMPARISON: NONE FINDINGS: At 4 hours there is 80% gastric emptying. The T1 half is 2 hours. Procedure Note Nikolas Desouza MD - 04/09/2018 EXAMINATION: NM GASTRIC EMPTYING- 04/09/2018 INDICATION: Persistent [...] 04/09/2018 4:[address] Nelson Desouza MD. Slime Hammer APRN IMG NM ORDERABLES Fi nal Result * (ABNORMAL) Hepatitis A Antibody, Total (04/08/2018 4:26 PM EST) Hep A Total Ab Positive(A ) Negative 04/11/2018 10:18 AM EST [facility] Blood Venipuncture / Unknown 04/08/2018 4:26 PM EST 04/10/2018 10:18 AM EST Narrative [facility] - 04/11/2018 10:18 AM EST Performed at: ??01 - [facility] [address] ??[id number] Manufacturing Quality Engineer: Malik Hall PhD, Phone: ??[phone] Slime Hammer APRN LAB BLOOD ORDERABLES Final Result [facility] [address] [place] [address], documented in this encounter Visit Diagnoses Diagnosis Dyspepsia Dyspepsia and other specified disorders of function of stomach Nausea Nausea alone LFT elevation documented in this encounter Administered Medications Inactive Administered Medications - up to 3 most recent administrations Medication Order MAR Action Action Date Dose Rate Site technetium sulfur colloid (NYCOMED-SC) solution 1 dose 1 dose, Oral, Once in Imaging, On Sun04/09/18 at 1016, For 1 dose, Millicuries: 1.1 Given 04/09/2018 8:35 AM EST 1 dose documented in this encounter Care Teams Gerontology Aide Relationship Specialty Start Date End Date Guerline Randall APRN [address] [place] [phone] PCP - General Family Medicine 12/19/17 04/11/18 documented as of this encounter
--- OUTSIDE RECORDS SUMMARY | 2024-02-20 09:13 | XMS_ITS | Encounter Summary ---
[facility] Address [address] [place] [address] Care Team Providers Care Permastone Mechanic Name Role Phone Ev Augustin APRN Primary Care Provider [phone] Reason for Visit * Health Education (Routine) - Closed Specialty Diagnoses / Procedures Referred By Contac t Referred To Contact Nutrition Diagnoses NAFLD (nonalcoholic fatty liver disease) Slime Hammer APRN [facility] [address] [place] [address] Phone: tel: fax: Referral ID Status Reason Start Date Expiration Date V isits Requested Visits Authorized [id number] Closed Specialty Services Required 02/08/2018 02/08/2019 12 12 Encounter Details Date Type Department Care Team (Latest Contact Info) Description 04/17/2018 2:14 PM EST - 04/17/2018 11:59 PM [facility] Encounter [facility] [address] [place] [address] Kandy Laureano, RD Discharge Disposition: [...] - Inhaled Oxygen Concentration - - Weight 86.8 kg (191 lb 6.4 oz) 04/17/2018 3:14 P M EST Height 157.5 cm (5' 2 ) 04/17/2018 3:14 PM EST Body Mass Index 35.01 04/17/2018 3:14 PM EST documented in this encounter Medications [...] bedtime. 30 tablet 3 9 08/21/19 19 rosuvastatin (CRESTOR) 20 MG tabletIndications:M ixed [...] Progress Notes * Kandy Laureano, RD - 04/17/2018 3:15 PM EST Adult Outpatient Nutrition Assessment/PES Patient Name: Gertrudis Gonzalez Date of : 1955 Assessment Date: 04/17/2018 Comments: Patient present for nutrition follow up related to fatty liver disease. Weight measurements taken today. See below. Goal completion is as follows: -Eat 3 meals per day. Avoid skipping meals: 100% -Choose grilled/baked meats instead of fried: 100% -Omit high fructose corn syrup by reading labels: 0% -Lose 0.5-1.0# of body weight per week: 0% Patient states that she was trying to lose weight based on the principles discussed at the initial nutrition visit but she was regained the weight she lost. She has a new diagnosis of gastroparesis and is very upset and confused about what to eat for the new diagnosis as well as fatty liver and diabetes. Reviewed nutrition principles for fatty liver disease (low fat diet) and low fiber diet. Reviewed food choices for a low fat diet and low fiber/gastroparesis diet. Recommended to use the plate method for carbohydrate control for diabetes when meal planning. Handouts given. States that she is striving to eat at least 3 times per day and is choosing more grilled/baked meat options as opposed to fried. Patient states that she forgot to read food labels for high fructose corn syrup. Will continue all goals. Scheduled a continued follow up appointment for 05/13/2018 at 2:[address] contact information given if needed. Total of 30 minutes spent with patient counseling. Thank you again for this referral. Anthropometrics Row Name 04/17/18 1514 Anthropometrics Height 157.5 cm (62 ) Weight 86.8 kg (191 lb 6.4 oz) [place] Body Weight (IBW) [place] Body Weight (IBW) (kg) 50.43 % [place] Body Weight 172.15 Body Mass Index (BMI) BMI (kg/m2) 35.08 IBW Adjustment, Para/Tetraplegia 5% Adjustment, Para (IBW) 47.91 10% Adjustment, Para (IBW) 45.39 10% Adjustment, Tetra (IBW) 45.39 15% Adjustment, Tetra (IBW) 42.87 Estimated/Assessed Needs Row Name 04/17/18 1514 Calculation Measurements Height 157.5 cm (62 ) Evaluation of Prescribed Nutrient/Fluid Intake Row Name 04/17/18 1514 Calculation Measurements Height 157.5 cm (62 ) Problem/Interventions: Problem 1 Row Name 04/17/18 1515 Nutrition Diagnoses Problem 1 Problem 1 Overweight/Obesity Etiology (related to) -- excessive kcalorie intake Signs/Symptoms (evidenced by) BMI BMI 30 - 34.9 Resolved? -- ongoing Electronically signed by: Kandy Laureano RD 04/17/18 3:15 PM documented in this encounter Plan of Treatment Upcoming Encounters Date Type Department Care Team (Late st Contact Info) Description 03/13/2024 2:45 PM EST Office Visit [facility] [address] [facility] [address] [place] [address] Pj Ace MD [address] [address] documented as of this encounter Visit Diagnoses Not on filedocumented in this encounter Care Teams Permastone Mechanic Relationship Specialty Start Date End Date Ev Augustin APRN [address] [place] [address] PCP - General Internal Medicine 04/12/18 08/18/21 documented as of this encounter
--- OUTSIDE RECORDS SUMMARY | 2024-02-20 09:13 | XMS_ITS | Encounter Summary ---
Author Organization [facility] Address [address] [place] [id number] Care Team Providers Care Bottom Wheeler Name Role Phone Guerline Randall APRN Primary Care Provider [phone] Reason for Visit * Reason Onset Date Comments Med Refill 04/03/2018 Encounter Details Date Type Department Care Team (Late st Contact Info) Description 04/03/2018 Refill [facility] ENDOCRINOLOGY [address] [facility] [address] [place] [phone] Roc Tracey PA-C [address] [facility] [address] [place] [address] Type 2 diabetes mellitus without complication, without long-term current use of insulin Social [...] HOSPITAL CARDIOLOGY [address] [place] [address] [place] [address] Pj Ace MD [address] [facility] [address] [place] [address] documented as of this encounter Visit Diagnoses Diagnosis Type 2 diabetes mellitus without complication, without long-term current use of insulin documented in this encounter Care Teams Bottom Wheeler Relationship Specialty Start Date End Date Guerline Randall APRN [address] [facility] [address] [place] [id number] PCP - General Family Medicine 12/19/17 04/11/18 documented as of this encounter
--- OUTSIDE RECORDS SUMMARY | 2024-02-20 09:13 | XMS_ITS | Encounter Summary ---
[facility] Address [address] [place] [address] Care Team Providers Care [employer] Director Name Role Phone Ev Augustin APRN Primary Care Provider [phone] Reason for Visit * Reason Comments Follow-up Re-establishing care , Guerline's patient Hypertension Anxiety Hyperlipidemia Encounter Details Date Type Department Care Team (Late st Contact Info) Description 04/12/2018 11:30 AM EST Office Visit [facility] INTERNAL MEDICINE [address] [place] [address] Ev Augustin APRN [address] [place], [place] [id number] Hepatitis A antibody positive (Primary Dx); Mixed hyperlipidemia; Benign essential hypertension; Moderate obesity; Uncontrolled type 2 diabetes mellitus with hyperglycemia, without long-term current use of insulin; Anxiety and depression; RLS (restless legs syndrome); Other chronic pain Social History Tobacco Use Types Packs/Day Years [...] Sign Reading Time Taken Comments Blood Pressure 118/64 04/12/2018 11:15 AM EST Pulse 83 04/12/2018 11:15 AM EST Temperature - - Respiratory Rate - - Oxygen Saturation 98% 04/12/2018 11:15 AM EST Inhaled Oxygen Concentration - - Weight 85.7 kg (189 lb) 04/12/2018 11:15 AM EST Height 157.5 cm (5' 2 ) 04/12/2018 11:15 AM EST Body Mass Index 34.57 04/12/2018 11:15 AM EST documented in this encounter Progress Notes * Ev Augustin, CADASTRAL ENGINEER - 04/12/2018 11:30 AM EST Chief Complaint Patient presents with ??? Follow-up Re-establishing care, Guerline's patient ??? Hypertension ??? Anxiety ??? Hyperlipidemia History of Present Illness 62 y.o.female presents for follow up of chronic conditions. Hx of diabetes; followed by endocrinology. Eye exam current (within one year): yes- no retinopathy Foot care and dental care: recently discussed per endocrine Current diabetic medications include: Bydureon 2mg sc weekly Empagliflozin 10 mg daily ACEI/ARB: losartan-hctz Statin: Repatha was not covered by insurance; recent started rosuvastatin 20mg nightly. Hx GI gastroparesis htn doing ok without difficulties; no headaches, dizziness or vision changes; no chest pain.Takes lasix20 mg once every other day losartin-hctz Nifedipine bisoprolol Anxiety/depression takes pristqu followed by Dr. Burks. No self harm or suicidal ideations. Chronic pain sciatic nerve multi back surgeries; leg gives out sometimes; takes Tramadol and Baclofen. Needs updated disability car tag for parking Muscle cramps rls takes requip at night. Review of Systems Constitutional: Negative for chills, fatigue and fever. Eyes: Negative for blurred vision and visual disturbance. Respiratory: Negative for shortness of breath. Cardiovascular: Negative for chest pain, palpitations and leg swelling. Genitourinary: Negative for difficulty urinating. Musculoskeletal: Positive for back pain. Negative for arthralgias. Muscle cramps at night Neurological: Negative for dizziness, light-headedness and headache. Psychiatric/Behavioral: Positive for sleep disturbance and depressed mood. Negative for self-injuryand suicidal ideas. The patient is nervous/anxious. [facility] The following portions of the patient's history were reviewed and updated as appropriate: allergies, current medications, past family history, past medical history, past social history, past surgicalhistory and problem list. Social hx: Tobacco nonsmoker Alcohol Past Medical History: Diagnosis Date ??? Anxiety [...] Other type 2 Current Outpatient Medications: ??? acetaminophen (TYLENOL) 500 MG tablet, Take 1 tablet by mouth 2 (Two) Times a Day. Every 4 to 6hours as needed, Disp: , Rfl: ??? albuterol (PROVENTIL HFA;VENTOLIN HFA) 108 (90 [...] by mouth Daily., Disp: , Rfl: ??? desvenlafaxine (PRISTIQ) 50 MG 24 hr tablet, Take 1 tablet by mouth Daily., Disp: , Rfl: ??? Empagliflozin (JARDIANCE) 10 MG tablet, Take 10 mg by mouth Daily., Disp: 90 tablet, Rfl: 1 ??? estradiol (ESTRACE VAGINAL) 0.1 MG/GM vaginal cream, Insert 2 g into the vagina 1 (One) Time Per Week., Disp: 42.5 g, Rfl: 5 ??? exenatide er (BYDURESLY BCI) 2 MG/0.85ML auto-injector injection, Inject 0.85 units [...] Every Night. Take 1 hour before bedtime. (Patient taking differently: Take 0.5 mg by mouth Every Night. Take 1 hour before bedtime.), Disp: 30 tablet, Rfl: 3 ??? rosuvastatin (CRESTOR) 20 MG tablet, Take 1 tablet by mouth Every Night., Disp: 30 tablet, Rfl:3 ??? topiramate (TOPAMAX) 50 MG tablet, TAKE [...] Disp: 180 tablet, Rfl: 2 VITALS: BP 118/64 Pulse 83 Ht 157.5 cm (62 ) Wt 85.7 kg (189 lb) LMP (LMP Unknown) SpO2 98% BMI34.57 kg/m?? Physical Exam Constitutional: She is oriented to person, place, and time. She appears well- developed and well-nourished. No distress. HENT: Head: Normocephalic. Right Ear: External ear normal. Left Ear: External ear normal. Nose: Nose normal. Mouth/Throat: Oropharynx is clear and moist. Eyes: Conjunctivae and EOM are normal. Pupils are equal, round, and reactive to light. No scleral icterus. Neck: Normal range of motion. Neck supple. Cardiovascular: Normal rate, regular rhythm and normal heart sounds. Pulmonary/Chest: Effort normal and breath sounds normal. No respiratory distress. Abdominal: Soft. Normal appearance and bowel sounds are normal. There is no hepatosplenomegaly. There is no tenderness. Musculoskeletal: Slow ROM with knee hip joints Neurological: She is alert and oriented to person, place, and time. Skin: Skin is warm and dry. Capillary refill takes less than 2 seconds. No rash noted. Psychiatric: She has a normal mood and affect. Her behavior is normal. LABS Results for orders placed or performed during the hospital encounter of 04/09/18 Hepatitis A Antibody, Total Result Value Ref Range Hep A Total Ab Positive (A) Negative ASSESSMENT/PLAN Gertrudis was seen today for follow-up, hypertension, anxiety and hyperlipidemia. Diagnoses and all orders for this visit: Hepatitis A antibody positive Comments: added IGM to rule out active hep A; negative Orders: - Cancel: Hepatitis A Antibody, IgM - Hepatitis A Antibody, IgM Mixed hyperlipidemia Comments: cont statin Benign essential hypertension Comments: cont meds as above Moderate obesity Comments: need weight loss Uncontrolled type 2 diabetes mellitus with hyperglycemia, without long-term current use of insulin ([facility]) Comments: cont FU with endocrinology Anxiety and depression Comments: controlled; continue pristque and FU with Dr. Burks RLS (restless legs syndrome) - rOPINIRole (REQUIP) 0.25 MG tablet; Take 1 tablet by mouth Every Night. Take 1 hour before bedtime. Other chronic pain Comments: followed by pain mgt; completed plaqurd form today Nutrition and activity goals reviewed including: mainly water to drink, limit white flour/processedsugar; increase high protein, high fiber carbs, good breakfast. I discussed the patients findings and my recommendations with patient. Patient was encouraged to keep me informed of any acute changes, lack of improvement, or any new concerning symptoms. Patient voiced understanding of all instructions and denied further questions. FOLLOW-UP Return in about 6 months (around 10/10/2018) for Recheck. Electronically signed by: Ev Augustin APRN 04/12/2018 documented in this encounter Plan of Treatment Upcoming Encounters Date Type Department Care Team (Late st Contact Info) Description 03/13/2024 2:45 PM EST Office Visit [facility] CARDIOLOGY [address] [facility] [place] [address] [place] [address] Pj Ace MD [address] [facility] [address] [place] [address] documented as of this encounter Procedures Procedure Name Priority Date/Time Associated Diagnosis Comments HEPATITIS A ANTIBODY, IGM Routine 04/12/2018 12:05 PM EST Hepatitis A antibody positive documented in this encounter Results * Hepatitis A Antibody, IgM (04/12/2018 12:05 PM EST) Hep A IgM Non-Reacti ve Non-Reacti ve 04/12/2018 6:44 PM EST [facility] Comment:Results may be false ly decreased if patient taking Biotin. Blood Venipuncture / Unknown 04/12/2018 12:05 PM EST 04/12/2018 12:05 PM EST us Ev Augustin CADASTRAL ENGINEER LAB BLOOD ORDERABLES Rosie l Result [facility]
[address] [place] [address], documented in this encounter Visit Diagnoses Diagnosis Hepatitis A antibody positive- Primary Mixed hyperlipidemia Benign essential hypertension Essential hypertension, benign Moderate obesity Uncontrolled type 2 diabetes mellitus with hyperglycemia, without long-term current use of insulin Anxiety and depression RLS (restless legs syndrome) Restless legs syndrome (RLS) Other chronic pain documented in this encounter Care Teams School Of Nursing Director Relationship Specialty Start Date End Date Ev Augustin APRN [address] [place] [address] PCP - General Internal Medicine 04/12/18 08/18/21 documented as of this encounter
--- OUTSIDE RECORDS SUMMARY | 2024-02-20 09:13 | XMS_ITS | Encounter Summary ---
[facility] Address [address] [place] [address] Care Team Providers Care Home Care Scheduler Name Role Phone Ev Augustin APRN Primary Care Provider [phone] Reason for Referral * Diagnostic Imaging (Routine) - Closed Specialty Diagnoses / Procedures Referred By Contac t Referred To Contact Radiology Diagnoses NAFLD (nonalcoholic fatty liver disease) Procedures Liver Slime Hammer APRN [address] [address] Phone: tel: Referral ID Status Reason Start Date Expiration Date Visits Re quested Visits Authorized [id number] Closed 05/13/2018 05/13/2019 1 1 Reason for Visit * Diagnostic Imaging (Routine) - Closed Specialty Diagnoses / Procedures Referred By Contac rita Referred To Contact Radiology Diagnoses NAFLD (nonalcoholic fatty liver disease) Procedures Liver Slime Hammer APRN [address] [address] Phone: tel: Referral ID Status Reason Start Date Expiration Date Visits Re quested Visits Authorized [id number] Closed 05/13/2018 05/13/2019 1 1 Encounter Details Date Type Department Care Team (Latest Contact Info) Description 05/16/2018 9:34 AM EST - 05/16/2018 11:59 PM EST Hospital Encounter [facility]TR[facility] [place] [id number] Slime Hammer APRN NAFLD (nonalcoholic fatty liver disease) Discharge Disposition: Home or Self Care Social [...] bedtime. 30 tablet 3 9 08/21/19 19 mkdkqj-qadfzrybi-nk gnesium sulfates (SUPREP BOWEL PREP KIT) 17.5-3.13-1.6 GM/177ML solution oral solution MUST HAVE SOFTWARE VALIDATION TECHNICIAN. DON'T EAT DAY BEFORE APPT. Read instructions mailed to you 7 days before appt. Didn't get instructions? Call [phone]. 2 bottle 9 07/16/19 19 topiramate (TOPAMAX) [...] Description 03/13/2024 2:45 PM EST Office Visit [facility] CARDIOLOGY [address] [place] [address] [place] [address] Pj Ace MD [address] [facility] [address] [place] [address] documented as of this encounter Procedures Procedure Name Priority Date/Time Associated Diagnosis Comments US LIVER Routine 05/16/2018 6:00 PM EST NAFLD (nonalcoholic fatty liver disease) documented in this encounter Results * US [...] on 05/17/2018 10:23 AM by Wayne Guallpa. Slime Hammer APRN IMG US ORDERABLES Fi nal Result documented in this encounter Visit Diagnoses Diagnosis NAFLD (nonalcoholic fatty liver disease) documented in this encounter Care Teams Home Care Scheduler Relationship Specialty Start Date End Date Ev Augustin APRN [address] [place] [address] PCP - General Internal Medicine 04/12/18 08/18/21 documented as of this encounter
--- OUTSIDE RECORDS SUMMARY | 2024-02-20 09:13 | XMS_ITS | Encounter Summary ---
[facility] Address [address] [place] [address] Care Team Providers Care Executive Relations Specialist Name Role Phone Guerline Randall APRN Primary Care Provider [phone] Reason for Visit * Reason Comments Follow-up DM 2 Encounter Details Date Type Department Care Team (Late st Contact Info) Description 04/08/2018 4:00 PM EST Office Visit [facility] ENDOCRINOLOGY [address] [facility] [address] [address] [place] [address] Roc Tracey PA-C [address] [facility] [address] [place] [address] Uncontrolled type 2 diabetes mellitus with hyperglycemia, without long-term current use of insulin (Primary Dx); Mixed hyperlipidemia; Encounter for screening for other viral diseases ; LFT elevation Social History Tobacco Use Types Packs/Day Years [...] Sign Reading Time Taken Comments Blood Pressure 122/82 04/08/2018 3:33 PM EST Pulse 91 04/08/2018 3:33 PM EST Temperature - - Respiratory Rate - - Oxygen Saturation 98% 04/08/2018 3:33 PM EST Inhaled Oxygen Concentration - - Weight 87.1 kg (192 lb) 04/08/2018 3:33 PM EST Height - - Body Mass Index 35.12 03/12/2018 12:48 PM EST documented in this encounter Progress Notes * Roc Tracey PA-C - 04/08/2018 4:00 PM EST Chief Complaint F/u for Diabetes Mellitus. JONA Gonzalez is a 62 y.o. female with chronic back pain and HTN- on multiple antihypertensives followed by cardiology in [place], who is here today for f/u of Diabetes Mellitus type 2. The initial diagnosis of diabetes was made approximately 2015. She has seen RD. Found education helpful. Praluent needs PA- she did not tolerate lipitor. Mother had CAD, dx in her 60s. A1C- 7.2 (04/08/18), 7.7 (12/14/17), 6.7 (09/12/17), 8.9 (05/2017) Labs reviewed: 09/12/17- GFR 73, LDL 206, TG 288 05/22/17- TSH 1.465 Diabetic complications: none Eye exam current (within one year): yes- no retinopathy Foot care and dental care: discussed Current diabetic medications include: Bydureon 2mg sc weekly Glimepiride 2mg qd- reports it makes her feel weird right after taking ACEI/ARB: losartan-hctz Statin: intolerant to statins, Repatha was not covered by insurance. Past medications: metformin (???caused blurred vision, went away when stopped taking metformin), invokana (insurance didn't cover but thinks this controlled glucose better) Diabetic Monitoring - no meter or log, [...] D deficiency Medications Current Outpatient Medications: ??? acetaminophen (TYLENOL) 500 [...] by mouth Daily., Disp: , Rfl: ??? estradiol (ESTRACE VAGINAL) 0.1 MG/GM vaginal cream, Insert 2 g into the vagina 1 (One) Time Per Week., Disp: 42.5 g, Rfl: 5 ??? exenatide er (BYDURESLY BCISE) 2 MG/0.85ML auto-injector injection, Inject 0.85 units in to the appropriate area one time weekly, Disp: 12 pen, Rfl: 3 ??? Liniments (SALONPAS) pads, Apply topically. prn, [...] bedtime.), Disp: 30 tablet, Rfl: 3 ??? topiramate [...] prn, Disp: 180 tablet, Rfl: 2 ??? Empagliflozin (JARDIANCE) 10 MG tablet, Take 10 mg by mouth Daily., Disp: 90 tablet, Rfl: 1 ??? furosemide (LASIX) 20 MG tablet, Take 20 mg by mouth 2 (Two) Times a Day., Disp: , Rfl: ??? rosuvastatin (CRESTOR) 20 MG tablet, Take 1 tablet by mouth Every Night., Disp: 30 tablet, Rfl:3 Review of Systems Review of Systems Constitutional: [...] patient is not nervous/anxious. Physical Exam BP 122/82 Pulse 91 Wt 87.1 kg (192 lb) LMP (LMP Unknown) SpO2 98% BMI 35.12 kg/m?? Body mass index is 35.12 kg/m??. Physical Exam Constitutional: She is oriented [...] Musculoskeletal: She exhibits no edema or tenderness. Vascular Status - Her right foot exhibits no edema. Her left foot exhibits no edema. Lymphadenopathy: She has no cervical adenopathy. Neurological: She is alert and oriented to person, place, and time. Skin: Skin is warm, dry and intact. No rash noted. She is not diaphoretic. No erythema. Psychiatric: She has a normal mood and affect. Her speech is normal and behavior is normal. Thoughtcontent normal. Labs and Imaging Lab Results Component Value Date HGBA1C 7.2 04/08/2018 HGBA1C 7.7 12/14/2017 HGBA1C 8.9 05/09/2017 Office Visit on 04/08/2018 Component Date Value Ref Range Status ??? Glucose 04/08/2018 248* 70 - 130 mg/dL Final ??? Hemoglobin A1C 04/08/2018 7.2 % Final No images are attached to [...] hyperglycemia, without long-term current use of insulin ([facility]) - POC Glucose Fingerstick - POC Glycosylated Hemoglobin (Hb A1C) - Empagliflozin (JARDIANCE) 10 MG tablet; Take 10 mg by mouth Daily. - exenatide er (BYDUREON BCISE) 2 MG/0.85ML auto-injector injection; Inject 0.85 units in to the appropriate area one time weekly - TSH - T4, Free Mixed hyperlipidemia - rosuvastatin (CRESTOR) 20 MG tablet; Take 1 tablet by mouth Every Night. - Lipid Panel - Comprehensive Metabolic Panel Diabetes Mellitus 2 is under good control. -A1c 7.2, down from 7.7 12/2017 -continue bydureon bcise 2mg sc weekly. -change glimepiride to jardiance 10mg daily. Discussed importance of adequate hydration and good hygiene with this medication. Samples provided. -intolerant to metformin -intolerant to statins- praluent needs PA, appears she needs to try crestor as well per PA, will rx -bring meter to f/u- check sugar fasting and 2h pp -encouraged to have eye exam 1. Diet: 3-4 carb servings per meal [...] 05/2018 5. Education performed during this visit: emt intermediate diabetic complications discussed. , annual eye examinations at Ophthalmology discussed, dental hygiene discussed and foot care reviewed., home glucose monitoring emphasized, all medications, side effects and compliance discussed carefully and Hypoglycemia management and prevention reviewed. Reviewed ???ABCs??? of diabetes management (respective goals in parentheses): A1C (<7), blood pressure (<130/80), and cholesterol (LDL <100, if CVD <70). There are no Patient Instructions on file for this visit. Follow up: Return in about 3 months (around 07/07/2018). Discussed the nature of the disease including, [...] screenings, and immunizations on an annual basis. 20 min of 30 min [id number] visit time spent for coordination of care and counselling regarding identified problems as outlined in the objective, assessment and discussion portions of the documentation. Roc Tracey PA-C documented in this encounter Plan of Treatment Upcoming Encounters Date Type Department Care Team (Late st Contact Info) Description 03/13/2024 2:45 PM EST Office Visit [facility] CARDIOLOGY [address] [place] [address] [place] [address] Pj Ace MD [facility] [facility] [address] [place] [address] documented as of this encounter Procedures Procedure Name Priority Date/Time Associated Diagnosis Comments HEPATITIS B SURFACE ANTIBODY Add-On 04/08/2018 4:26 PM EST Encounter for screening for other viral diseases LFT elevation TSH Routine 04/08/2018 4:26 PM EST Uncontrolled type 2 diabetes mellitus with hyperglycemia, without long-term current use of insulin T4, FREE Routine 04/08/2018 4:26 PM EST Uncontrolled type 2 diabetes mellitus with hyperglycemia, without long-term current use of insulin LIPID PANEL Routine 04/08/2018 4:26 PM EST Mixed hyperlipidemia COMPREHENSIVE METABOLIC PANEL Routine 04/08/2018 4:26 PM EST Mixed hyperlipidemia POCT GLYCOSYLATED HEMOGLOBIN (HGB A1C) Routine 04/08/2018 3:41 PM EST Uncontrolled type 2 diabetes mellitus with hyperglycemia, without long-term current use of insulin POCT GLUCOSE FINGERSTICK Routine 04/08/2018 3:41 PM EST Uncontrolled type 2 diabetes mellitus with hyperglycemia, without long-term current use of insulin documented in this encounter Results * Hepatitis B Surface Antibody (04/08/2018 4:26 PM EST) Hep B S Ab Non-Reacti ve Non-Reacti ve 04/09/2018 10:04 PM EST [facility] Blood Venipuncture / Unknown 04/08/2018 4:26 PM EST 04/08/2018 4:26 PM EST Slime Hammer APRN LAB BLOOD ORDERABLES Final Result [facility]
[address] [place] [address], * (ABNORMAL) Comprehensive Metabolic Panel (04/08/2018 4:26 PM EST) [facility] Glucose 168(H) 70 - 100 mg/dL 04/08/2018 7:44 PM [facility] BUN 21 9 - 23 mg/dL 04/08/2018 7:44 PM [facility] Creatinine 0.85 0.60 - 1.30 mg/dL 04/08/2018 7:44 PM [facility] Sodium 138 132 - 146 mmol/L 04/08/2018 7:44 PM [facility] Potassium 4.7 3.5 - 5.5 mmol/L 04/08/2018 7:44 PM [facility] Chloride 103 99 - 109 mmol/L 04/08/2018 7:44 PM [facility] CO2 26.0 20.0 - 31.0 mmol/L 04/08/2018 7:44 PM [facility] Calcium 9.6 8.7 - 10.4 mg/dL 04/08/2018 7:44 PM [facility] Total Protein 6.4 5.7 - 8.2 g/dL 04/08/2018 7:44 PM [facility] Albumin 4.41 3.20 - 4.80 g/dL 04/08/2018 7:44 PM [facility] ALT (SGPT) 69(H) 7 - 40 U/L 04/08/2018 7:44 PM [facility] AST (SGOT) 53(H) 0 - 33 U/L 04/08/2018 7:44 PM [facility] Alkaline Phosphatase 147(H) 25 - 100 U/L 04/08/2018 7:44 PM [facility] Total Bilirubin 0.3 0.3 - 1.2 mg/dL 04/08/2018 7:44 PM [facility] eGFR Non Amer 68 >60 mL/min/1.7 3 04/08/2018 7:44 PM [facility] Globulin 2.0 gm/dL 04/08/2018 7:44 PM [facility] A/G Ratio 2.2 1.5 - 2.5 g/dL 04/08/2018 7:44 PM EST [facility] BUN/Creatinine Ratio 24.7 7.0 - 25.0 04/08/2018 7:44 PM EST [facility] Anion Gap 9.0 3.0 - 11.0 mmol/L 04/08/2018 7:44 PM EST [facility] Blood Venipuncture / Unknown 04/08/2018 4:26 PM EST 04/08/2018 4:26 PM EST Narrative [facility] - 04/08/2018 7:44 PM EST National Kidney [employer] Guidelines Stage ? Description ?GFR 1 ? Normal or High ? 90+ 2 ? Mild decrease ?60-89 3 ? Moderate decrease ??30-59 4 ? Severe decrease ?15-29 5 ? Kidney failure ? <15 The MDRD GFR formula is only valid for adults with stable renal function between ages 18 and 70. us Roc Tracey PA-C LAB BLOOD ORDERABLES Final Result [facility]
[address] [place] [address], * (ABNORMAL) Lipid Panel (04/08/2018 4:26 PM EST) Total Cholesterol 170 0 - 200 mg/dL 04/08/2018 7:44 PM EST [facility] Triglycerides 385(H) 0 - 150 mg/dL 04/08/2018 7:44 PM EST [facility] HDL Cholesterol 51 40 - 60 mg/dL 04/08/2018 7:44 PM EST [facility] LDL Cholesterol 100 0 - 130 mg/dL 04/08/2018 7:44 PM EST [facility] Blood Venipuncture / Unknown 04/08/2018 4:26 PM EST 04/08/2018 4:26 PM EST Narrative [facility] - 04/08/2018 7:44 PM EST Cholesterol Reference Ranges: Desirable ? < 200 mg/dL Borderline ?200-239 mg/dL High Risk ? > 239 mg/dL Triglyceride Reference Ranges: Normal ?< 150 mg/dL Borderline ?150-199 mg/dL High ?200-499 mg/dL Very High ? > 499 mg/dL HDL Reference Ranges: Low ?< 40 mg/dL High ? > 59 mg/dL LDL Reference Ranges: Optimal ? < 100 mg/dL Near Optimal ??100-129 mg/dL Borderline ?130-159 mg/dL High ?160-189 mg/dL Very High ? > 189 mg/dL Roc VILLAGOMEZ-C LAB BLOOD ORDERABLES Final Result Performing Organization Address City/[facility] de Phone Number [facility]
[address] [place] [address], * T4, Free (04/08/2018 4:26 PM EST) Free T4 1.16 0.89 - 1.76 ng/dL 04/08/2018 7:44 PM EST [facility] Blood Venipuncture / Unknown 04/08/2018 4:26 PM EST 04/08/2018 4:26 PM EST Roc VILLAGOMEZ-C LAB BLOOD ORDERABLES Final Result Performing Organization Address [facility] de Phone Number [facility]
[address] [place] [address], * TSH (04/08/2018 4:26 PM EST) TSH 2.457 0.350 - 5.350 mIU/mL 04/08/2018 7:44 PM EST [facility] Blood Venipuncture / Unknown 04/08/2018 4:26 PM EST 04/08/2018 4:26 PM EST Roc Tracey PA-C LAB BLOOD ORDERABLES Final Result [facility]
[address] [place] [address], * POC Glycosylated Hemoglobin (Hb A1C) (04/08/2018 3:41 PM EST) Hemoglobin A1C 7.2 % [facility] Blood 04/08/2018 3:41 PM EST Vedrana Knezevic PA-C POINT OF CARE TEST ORDERAB LES Final Result Performing Organization Address City/[facility]/ZIP Co de Phone Number [facility]
[address] [place] [address], * (ABNORMAL) POC Glucose Fingerstick (04/08/2018 3:41 PM EST) Glucose 248(A) 70 - 130 mg/dL [facility] Blood 04/08/2018 3:41 PM EST Vedrana Knezevic PA-C POINT OF CARE TEST ORDERAB LES Final Result Performing Organization Address City/[facility]/ZIP Co de Phone Number [facility]
[address] [place] [address], [place] [phone] documented in this encounter Visit Diagnoses Diagnosis Uncontrolled type 2 diabetes mellitus with hyperglycemia, without long-term current use of insulin- Primary Mixed hyperlipidemia Encounter for screening for other viral diseases LFT elevation documented in this encounter Care Teams Executive Relations Specialist Relationship Specialty Start Date End Date Guerline Randall APRN [address] [facility] [address] [place] [address] PCP - General Family Medicine 12/19/17 04/11/18 documented as of this encounter
--- OUTSIDE RECORDS SUMMARY | 2024-02-20 09:13 | XMS_ITS | Encounter Summary ---
[facility] Address [address] [place] [id number] Care Team Providers Care Dental Hygiene Professor Name Role Phone Ev Augustin APRN Primary Care Provider [phone] Reason for Visit * Reason Comments Med Refill Encounter Details Date Type Department Care Team (Late Contact Info) Description 08/13/2018 Refill [facility] [address] [facility] [address] [place] [address] Slime Hammer APRN Chronic GERD; [...] Office Visit [facility] CARDIOLOGY [address] [place] [address] [place] [address] Pj Ace MD [address] [facility] [address] [place] [address] documented as of this encounter Visit Diagnoses Diagnosis Chronic GERD Encounter for long-term (current) use of NSAIDs Encounter for long-term (current) use of non-steroidal anti-inflammatories documented in this encounter Care Teams Dental Hygiene Professor Relationship Specialty Start Date End Date Ev Augustin, [employer] [address] [place], [place] [id number] PCP - General Internal Medicine 04/12/18 08/18/21 documented as of this encounter
--- OUTSIDE RECORDS SUMMARY | 2024-02-20 09:13 | XMS_ITS | Encounter Summary ---
[facility] Address [address] [place] [id number] Care Team Providers Care Planning Supervisor Name Role Phone Ev Augustin APRN Primary Care Provider [phone] Reason for Visit * Reason Comments Follow-up DM 2 Encounter Details Date Type Department Care Team (Late st Contact Info) Description 07/15/2018 11:30 AM EDT Office Visit [facility] ENDOCRINOLOGY [address] [facility] [address] [place] [id number] Roc Tracey PA-C [address] [facility] [address] [place], [place] [id number] Uncontrolled type 2 diabetes mellitus with hyperglycemia, without long-term current use of insulin (Primary Dx); Mixed hyperlipidemia; Hair loss Social History Tobacco Use Types Packs/Day Years [...] Sign Reading Time Taken Comments Blood Pressure 142/88 07/15/2018 10:34 AM EDT Pulse 71 07/15/2018 10:34 AM EDT Temperature - - Respiratory Rate - - Oxygen Saturation 96% 07/15/2018 10:34 AM EDT Inhaled Oxygen Concentration - - Weight 82.6 kg (182 lb) 07/15/2018 10:34 AM EDT Height - - Body Mass Index 33.29 06/13/2018 1:02 PM EDT documented in this encounter Progress Notes * Roc Tracey PA-C - 07/15/2018 11:30 AM EDT Chief Complaint F/u for Diabetes Mellitus. JONA Gonzalez is a 62 y.o. female with chronic back pain and HTN- on multiple antihypertensives followed by cardiology in [place], who is here today for f/u of Diabetes Mellitus type 2. The initial diagnosis of diabetes was made approximately 2015. She still c/o hair loss A1C- 7.6 (07/15/18), 7.2 (04/08/18), 7.7 (12/14/17), 6.7 (09/12/17), 8.9 (05/2017) Labs reviewed: 09/12/17- GFR 73, LDL 206, TG 288 05/22/17- TSH 1.465 Diabetic complications: gastroparesis followed by GI at [facility], [place] Eye exam current (within one year): yes- no retinopathy Foot care and dental care: discussed Current diabetic medications include: Bydureon 2mg sc weekly Jardiance 10mg daily ACEI/ARB: losartan-hctz Statin: intolerant to statins, Repatha was not covered by insurance. Past medications: metformin (???caused blurred vision, went away when stopped taking metformin), invokana (insurance didn't cover but thinks this controlled glucose better), glimepiride (pt reported it made her feel weird when she took it) Diabetic Monitoring - no meter or log, [...] 14 (Fourteen) Days., Disp: 6 pen, Rfl: 0 ??? aspirin 81 MG EC [...] 42.5 g, Rfl: 5 ??? exenatide er (BYDUREON BCISE) 2 MG/0.85ML [...] LEAST 30 MINUTES TO 1 HOUR BEFORE EATING., Disp: 30 capsule, Rfl: 2 ??? polyethylene glycol (MIRALAX) powder, Take 17 g by mouth Daily. Stir powder in 4 to 8 ounces ofwater, juice, soda, coffee, or tea until dissolved and administer immediately, Disp: 1 each, Rfl: 2 ??? rOPINIRole (REQUIP) 0.25 MG tablet, Take [...] 180 tablet, Rfl: 2 ??? Empagliflozin (JARDIANCE) 25 MG tablet, Take 25 mg by mouth Daily., Disp: 30 tablet, Rfl: 6 Review of Systems Review of Systems Constitutional: [...] patient is not nervous/anxious. Physical Exam BP 142/88 Pulse 71 Wt 82.6 kg (182 lb) LMP (LMP Unknown) SpO2 96% BMI 33.29 kg/m?? Body mass index is 33.29 kg/m??. Physical Exam Constitutional: She is oriented [...] Imaging Lab Results Component Value Date HGBA1C 7.6 07/15/2018 HGBA1C 7.2 04/08/2018 HGBA1C 7.7 12/14/2017 Office Visit on 07/15/2018 Component Date Value Ref Range Status ??? Glucose 07/15/2018 135* 70 - 130 mg/dL Final ??? Hemoglobin A1C 07/15/2018 7.6 % Final No images are attached to [...] hyperglycemia, without long-term current use of insulin ([facility]) - POC Glucose Fingerstick - POC Glycosylated Hemoglobin (Hb A1C) - Microalbumin / Creatinine Urine Ratio - Urine, Clean Catch - Comprehensive Metabolic Panel - Lipid Panel - TSH - CBC & Differential - Empagliflozin (JARDIANCE) 25 MG tablet; Take 25 mg by mouth Daily. - CBC Auto Differential Mixed hyperlipidemia - Alirocumab (PRALUENT) 75 MG/ML solution pen-injector; Inject 75 mg under the skin into the appropriate area as directed Every 14 (Fourteen) Days. - Comprehensive Metabolic Panel - Lipid Panel Hair loss - Iron - Ferritin Diabetes Mellitus 2 is under fair control. -A1c 7.6, up from 7.2 04/2018 -continue bydureon bcise 2mg sc weekly. -increase jardiance to 25mg daily. Discussed importance of adequate hydration and good hygiene withthis medication. Samples provided. -intolerant to metformin -bring meter to f/u -encouraged to have eye exam 1. Diet: [...] 05/2018 5. Education performed during this visit: termite exterminator helper diabetic complications discussed. , annual eye examinations at Ophthalmology discussed, dental hygiene discussed and foot care reviewed., home glucose monitoring emphasized, all medications, side effects and compliance discussed carefully and Hypoglycemia management and prevention reviewed. Reviewed ???ABCs??? of diabetes management (respective goals in parentheses): A1C (<7), blood pressure (<130/80), and cholesterol (LDL <100, if CVD <70). Hyperlipidemia -continue praluent There are no Patient Instructions on file for this visit. Follow up: Return in about 3 months (around 10/14/2018). Discussed the nature of the disease including, [...] annual basis. 20 min of 30 min [id number] visit time spent for coordination of care and counselling regarding identified problems as outlined in the objective, assessment and discussion portions of the documentation. Roc Tracey PA-C documented in this encounter Plan of Treatment Upcoming Encounters Date Type Department Care Team (Late st Contact Info) Description 03/13/2024 2:45 PM EST Office Visit [facility] CARDIOLOGY [address] [place] [id number] Pj Ace MD [address] [facility] [address] [place] [address] documented as of this encounter Procedures Procedure Name Priority Date/Time Associated Diagnosis Comments CBC WITH AUTO DIFFERENTIAL Routine 07/15/2018 11:01 AM EDT Uncontrolled type 2 diabetes mellitus with hyperglycemia, without long-term current use of insulin MICROALBUMIN / CREATININE URINE RATIO Routine 07/15/2018 11:01 AM EDT Uncontrolled type 2 diabetes mellitus with hyperglycemia, without long-term current use of insulin CBC AND DIFFERENTIAL Routine 07/15/2018 11:01 AM EDT Uncontrolled type 2 diabetes mellitus with hyperglycemia, without long-term current use of insulin TSH Routine 07/15/2018 11:01 AM EDT Uncontrolled type 2 diabetes mellitus with hyperglycemia, without long-term current use of insulin IRON Routine 07/15/2018 11:01 AM EDT Hair loss FERRITIN Routine 07/15/2018 11:01 AM EDT Hair loss LIPID PANEL Routine 07/15/2018 11:01 AM EDT Uncontrolled type 2 diabetes mellitus with hyperglycemia, without long-term current use of insulin Mixed hyperlipidemia COMPREHENSIVE METABOLIC PANEL Routine 07/15/2018 11:01 AM EDT Uncontrolled type 2 diabetes mellitus with hyperglycemia, without long-term current use of insulin Mixed hyperlipidemia POCT GLYCOSYLATED HEMOGLOBIN (HGB A1C) Routine 07/15/2018 10:44 AM EDT Uncontrolled type 2 diabetes mellitus with hyperglycemia, without long-term current use of insulin POCT GLUCOSE FINGERSTICK Routine 07/15/2018 10:44 AM EDT Uncontrolled type 2 diabetes mellitus with hyperglycemia, without long-term current use of insulin documented in this encounter Results * (ABNORMAL) CBC Auto Differential (07/15/2018 11:01 AM EDT) WBC 5.71 3.40 - 10.80 10*3/mm3 07/15/2018 10:41 PM EDT [facility] RBC 5.43(H) 3.77 - 5.28 10*6/mm3 07/15/2018 [facility] Hemoglobin 15.8 12.0 - 15.9 g/dL 07/15/2018 10:41 PM EDT [facility] Hematocrit 50.7(H) 34.0 - 46.6 % 07/15/2018 10:41 [facility] MCV 93.4 79.0 - 97.0 fL 07/15/2018 10:41 [facility] MCH 29.1 26.6 - 33.0 pg 07/15/2018 10:41 [facility] MCHC 31.2(L) 31.5 - 35.7 g/dL 07/15/2018 10:41 PM [facility] RDW 13.1 12.3 - 15.4 % 07/15/2018 10:41 PM [facility] RDW-SD 44.5 37.0 - 54.0 fl 07/15/2018 10:41 PM [facility] MPV 10.9 6.0 - 12.0 fL 07/15/2018 10:41 PM T [facility] Platelets 268 140 - 450 10*3/mm3 07/15/2018 10:41 PM EDT [facility] Neutrophil % 58.0 42.7 - 76.0 % 07/15/2018 10:41 PM EDT [facility] Lymphocyte % 31.5 19.6 - 45.3 % 07/15/2018 10:41 PM EDT [facility] Monocyte % 6.7 5.0 - 12.0 % 07/15/2018 10:41 PM EDT [facility] Eosinophil % 2.3 0.3 - 6.2 % 07/15/2018 10:41 PM EDT [facility] Basophil % 1.1 0.0 - 1.5 % 07/15/2018 10:41 PM T [facility] Immature Grans % 0.4 0.0 - 0.5 % 07/15/2018 10:41 PM EDT [facility] Neutrophils, Absolute 3.32 1.40 - 7.00 10*3/mm3 07/15/2018 10:41 PM EDT [facility] Lymphocytes, Absolute 1.80 0.70 - 3.10 10*3/mm3 07/15/2018 10:41 PM EDT [facility] Monocytes, Absolute 0.38 0.10 - 0.90 10*3/mm3 07/15/2018 10:41 PM T [facility] Eosinophils, Absolute 0.13 0.00 - 0.40 10*3/mm3 07/15/2018 10:41 PM T [facility] Basophils, Absolute 0.06 0.00 - 0.20 10*3/mm3 07/15/2018 10:41 PM EDT [facility] Immature Grans, Absolute 0.02 0.00 - 0.05 10*3/mm3 07/15/2018 10:41 PM T [facility] nRBC 0.0 0.0 - 0.0 /100 WBC 07/15/2018 10:41 PM T [facility] Blood Venipuncture / Unknown 07/15/2018 11:01 AM EDT 07/15/2018 11:01 AM EDT Roc Tracey PA-C LAB BLOOD ORDERABLES Final Result [facility]
[address] [place] [address], * (ABNORMAL) Ferritin (07/15/2018 11:01 AM EDT) Ferritin 184.00(H) 13.00 - 150.00 ng/mL 07/15/2018 11:55 PM EDT [facility] Blood Venipuncture / Unknown 07/15/2018 11:01 AM EDT 07/15/2018 11:01 AM EDT Roc Richezevic PA-C LAB BLOOD ORDERABLES Final Result [facility]
[address] [place] [address], * Iron (07/15/2018 11:01 AM EDT) Iron 70 37 - 145 mcg/dL 07/16/2018 12:09 AM EDT [facility] Blood Venipuncture / Unknown 07/15/2018 11:01 AM EDT 07/15/2018 11:01 AM EDT Roc Richezevic PA-C LAB BLOOD ORDERABLES Final Result Performing Organization Address City/[facility]/ZIP Co de Phone Number [facility]
[address] [place] [address], * TSH (07/15/2018 11:01 AM EDT) TSH 1.760 0.270 - 4.200 mIU/mL 07/15/2018 11:55 PM EDT [facility] Blood Venipuncture / Unknown 07/15/2018 11:01 AM EDT 07/15/2018 11:01 AM EDT Roc Oliviaevic PA-C LAB BLOOD ORDERABLES Final Result [facility]
[address] [place] [address], * (ABNORMAL) Lipid Panel (07/15/2018 11:01 AM EDT) Total Cholesterol 146 0 - 200 mg/dL 07/16/2018 12:09 AM EDT [facility] Triglycerides 158(H) 0 - 150 mg/dL 07/16/2018 12:09 AM [facility] HDL Cholesterol 50 40 - 60 mg/dL 07/16/2018 12:09 AM [facility] LDL Cholesterol 64 0 - 100 mg/dL 07/16/2018 12:09 AM [facility] VLDL Cholesterol 31.6 5 - 40 mg/dL 07/16/2018 12:09 AM [facility] LDL/HDL Ratio 1.29 07/16/2018 12:09 AM [facility] Blood Venipuncture / Unknown 07/15/2018 11:01 AM EDT 07/15/2018 11:01 AM [facility] - 07/16/2018 12:09 AM T Cholesterol Reference Ranges (U.S. Department of Health [...] 160-189 mg/dL Very High ?>189 mg/dL us Roc Tracey PA-C LAB BLOOD ORDERABLES Final Result [facility]
[address] [place] [address], * (ABNORMAL) Comprehensive Metabolic Panel (07/15/2018 11:01 AM EDT) Glucose 115(H) 65 - 99 mg/dL 07/16/2018 12:09 AM EDT [facility] BUN 12 8 - 23 mg/dL 07/16/2018 12:09 AM T [facility] Creatinine 0.62 0.57 - 1.00 mg/dL 07/16/2018 12:09 AM EDT [facility] Sodium 145 136 - 145 mmol/L 07/16/2018 12:09 AM T [facility] Potassium 4.5 3.5 - 5.2 mmol/L 07/16/2018 12:09 AM EDT [facility] Chloride 102 98 - 107 mmol/L 07/16/2018 12:09 AM EDT [facility] CO2 28.6 22.0 - 29.0 mmol/L 07/16/2018 12:09 AM EDT [facility] Calcium 9.9 8.6 - 10.5 mg/dL 07/16/2018 12:09 AM T [facility] Total Protein 7.7 6.0 - 8.5 g/dL 07/16/2018 12:09 AM EDT [facility] Albumin 4.20 3.50 - 5.20 g/dL 07/16/2018 12:09 AM EDT [facility] ALT (SGPT) 37(H) 1 - 33 U/L 07/16/2018 12:09 AM EDT [facility] AST (SGOT) 29 1 - 32 U/L 07/16/2018 12:09 AM EDT [facility] Alkaline Phosphatase 142(H) 39 - 117 U/L 07/16/2018 12:09 AM T [facility] Total Bilirubin 0.3 0.2 - 1.2 mg/dL 07/16/2018 12:09 AM EDT [facility] eGFR Non Amer 98 >60 mL/min/1.7 3 07/16/2018 12:09 AM EDT [facility] Globulin 3.5 gm/dL 07/16/2018 12:09 AM EDT [facility] A/G Ratio 1.2 g/dL 07/16/2018 12:09 AM T [facility] BUN/Creatinine Ratio 19.4 7.0 - 25.0 07/16/2018 12:09 AM EDT [facility] Anion Gap 14.4 mmol/L 07/16/2018 12:09 AM T [facility] Blood Venipuncture / Unknown 07/15/2018 11:01 AM EDT 07/15/2018 11:01 AM EDT Narrative [facility] - 07/16/2018 12:09 AM EDT GFR Normal >60 Chronic Kidney Disease <60 Kidney Failure <15 Roc VILLAGOMEZ-C LAB BLOOD ORDERABLES Final Result [facility]
[address] [place] [address], * Microalbumin / Creatinine Urine Ratio - Urine, Clean Catch (07/15/2018 11:01 AM EDT) Microalbumin/C reatinine Ratio mg/g 07/15/2018 11:22 PM EDT [facility] Comment:Unable to calculate Creatinine, Urine 74.6 mg/dL 07/15/2018 11:22 PM EDT [facility] Microalbumin, Urine <1.2 mg/L 07/15/2018 11:22 PM T [facility] Urine Urine specimen collection, clean catch / Unknown Collection / Unknown 07/15/2018 11:01 AM EDT 07/15/2018 11:01 AM EDT Vedrana Knezevic PA-C URINE ORDERABLES Final Res ult [facility]
[address] [place] [address], [place] [phone] * POC Glycosylated Hemoglobin (Hb A1C) (07/15/2018 10:44 AM EDT) Hemoglobin A1C 7.6 % [facility] Blood 07/15/2018 10:4 4 AM EDT us Vedrana Knezevic PA-C POINT OF CARE TEST ORDERAB LES Final Result Performing Organization Address [facility]/ZIP Co de Phone Number [facility]
[address] [place] [address], [place] [phone] * (ABNORMAL) POC Glucose Fingerstick (07/15/2018 10:44 AM EDT) Glucose 135(A) 70 - 130 mg/dL [facility] Blood 07/15/2018 10:4 4 AM EDT us Vedrana Knezevic PA-C POINT OF CARE TEST ORDERAB LES Final Result Performing Organization Address [facility] Co de Phone Number [facility]
[address] [place] [address], [place] [phone] documented in this encounter Visit Diagnoses Diagnosis Uncontrolled type 2 diabetes mellitus with hyperglycemia, without long-term current use of insulin- Primary Mixed hyperlipidemia Hair loss Unspecified alopecia documented in this encounter Care Teams Planning Supervisor Relationship Specialty Start Date End Date Ev Augustin APRN [address] [place] [address] PCP - General Internal Medicine 04/12/18 08/18/21 documented as of this encounter
--- OUTSIDE RECORDS SUMMARY | 2024-02-20 09:13 | XMS_ITS | Encounter Summary ---
[facility] Address [address] [place] [address] Care Team Providers Care Director Of Slot Operations Name Role Phone Ev Augustin APRN Primary Care Provider [phone] [phone] Reason for Visit * Reason Comments Pain Encounter Details Date Type Department Care Team (Latest Contact Info) Description 06/13/2018 2:00 PM EDT Office Visit [facility] PAIN MANAGEMENT [address] [facility] [address] [place] [address] Guero Lunsford, KIRSTEN Meningeal adhesions/lumbar arachnoiditis (Primary Dx); Postlaminectomy syndrome of lumbar region; Herniated lumbar intervertebral disc; Lumbar facet arthropathy/lumbar spondylosis without myelopathy; Sacroiliac joint dysfunction of left side; Myofascial pain syndrome; Diabetes mellitus type 2 in obese; Physical deconditioning; Insomnia, unspecified type; Therapeutic drug monitoring Social History Tobacco Use Types Packs/Day Years [...] Reading Time Taken Comments Blood Pressure 142/88 06/13/2018 1:02 PM EDT Pulse - - Temperature 36.6 ??C (97.9 ??F) 06/13/2018 1:02 PM ED T Respiratory Rate - - Oxygen Saturation - - Inhaled Oxygen Concentration - - Weight 83.5 kg (184 lb) 06/13/2018 1:02 PM EDT Height 157.5 cm (5' 2 ) 06/13/2018 1:02 PM EDT Body Mass Index 33.65 06/13/2018 1:02 PM EDT documented in this encounter Progress Notes * Guero Lunsford PA-C - 06/13/2018 2:00 PM EDT Chief Complain: Medication refills. ?? Brief History: Ms. Gonzalez has a history of chronic lower back and left leg pain. She presents to the clinic today for medication refills. She takes baclofen, trazodone, and tramadol for her chronic pain. Patient reports that she is doing well with the medications, and she denies any adverse effects. She was last seen on 05/07/2017 for SCS reprogramming. Patient states that she has not used her SCS since last reprogrammed because she feels better without it. Patient voices no concerns today. Pain level ranges from 1/10 to 5/10 without the use of her spinal cord stimulator. Pain location: Left lower back, buttocks, and left leg. Quality of pain: deep ache and burning Radiation of pain: Left gluteal region to the posterior aspect of left thigh, left calf, and into the dorsal aspect of her left foot. Current analgesics: baclofen, tramadol, Lidocaine Patches, and Tylenol I have reviewed [facility] #[id number] consistent with medication reconciliation. Global Pain Scale 01-30-201806-13-19 Pain 13 11 Feelings 16 8 Clinical outcomes 17 8 Activities 15 7 GPS Total: 61 34 Diagnostic Studies: UDS on 01/30/2018, appropriate. XR SPINE, THORACIC, 1 VW-03/22/2017: No evidence for acute fracture, subluxation or dislocation of the thoracic spine with spinal cord stimulator terminating at the T7 superior endplate level. ? CT SCAN OF THE THORACIC SPINE WO CONTRAST-12/13/2016: There is evidence of laminectomy at T9 and T10 where there is insertion of a spinal cord stimulator which is placed at the level of T7. There aremild diffuse osteoarthritic changes. There is no compression fracture or subluxation. There is no spinal stenosis. ? The following portions of the patient's history were reviewed and updated as appropriate: problem list, past medical history, past surgery history, social history, family history, medications, and allergies ?? Review of Systems Musculoskeletal: Positive for arthralgias, back pain, joint swelling and myalgias. Neurological: Positive for headaches. All other systems reviewed and are negative. BP 142/88 Temp 97.9 ??F (36.6 ??C) Ht 157.5 cm (62 ) Wt 83.5 kg (184 lb) LMP (LMP Unknown) BMI 33.65 kg/m?? Physical Exam Neurologic Exam Constitutional: No acute distress, well appearing. Obese. Head and Face: Normal. Conjunctiva and lids: No swelling, erythema or discharge. Pupils: Equal, round, and reactive to light. Pulmonary: No increased work of breathing or signs of respiratory distress. Clear to auscultation bilaterally. Cardiovascular: Normal rate and rhythm, normal S1 and S2, no murmurs. Musculoskeletal Gait and station: Normal. ?? The range of motion of the lumbar spine is limited but without significant pain. Lumbar facet jointloading maneuvers are negative. Danny and Gaenslen's tests are negative. The range of motion of the hip joints is full and without pain. Muscle tone is normal. Muscle strength/tone: Normal. Skin and subcutaneous tissue: Normal without rashes or lesions.?? Neurologic Cranial nerves: Cranial nerves II-XII intact. Cortical function: Normal mental status. Reflexes: 2+ patellar bilaterally,??2+ Achilles bilaterally. Straight leg raising test is positive on the left. Negative clonus bilaterally. Sensation: No sensory loss. Sensory exam: intact to light touch,??intact pain and temperature sensation,??intact vibration sensation??and??normal proprioception. Coordination: Normal finger to nose and heel to kennedy. Coordination: normal balance??and??negative Romberg's sign. Psychiatric: Judgment and insight: Normal. Orientation to person, place, and time: Normal. Recent and remote memory: Intact. Mood and affect: Normal. ?? ASSESSMENT: 1. Meningeal adhesions/lumbar arachnoiditis 2. Postlaminectomy syndrome of lumbar region 3. Herniated lumbar intervertebral disc 4. Lumbar facet arthropathy/lumbar spondylosis without myelopathy 5. Sacroiliac joint dysfunction of left side 6. Myofascial pain syndrome 7. Diabetes mellitus type 2 in obese (CMS/HCC) 8. Physical deconditioning 9. Insomnia, unspecified type 10. Therapeutic drug monitoring PLAN: I have reviewed the above medical records, and discussed the patient with Dr. Adams. 1. Diagnostics: Random UDS 2. Pharmacological measures. Reviewed and discussed. A. Continue topiramate 50 mg twice daily. B. Continue trazodone 50-100 mg each bedtime for insomnia. Refilled. D. Continue baclofen 10 mg 1/2 to 1 tablet 1-2 times a day as needed muscle spasms. Refilled. E. Tramadol 50 mg 2-3 times a day as needed for severe breakthrough pain. Refill if unremarkable UDS. Patient advised that she will need medication follow-up in 6 months in order to refill. Screening and compliance with controlled substances: Patient has completed a SOAPP questionnaire and ORT questionnaires (revealing low risk). Abrahan reports have been reviewed at each visit, and at least every three months and appropriate. Patient has signed a consent for treatment with controlled s ubstances after reviewing the document and verbalizing full understanding of the risks, benefits, alternatives, and consequences of compliance and adherence with treatment and comprehensive plan of care. Patient received in hand a copy of this document. 3. Follow-up as needed for SCS reprogramming. 4. The patient has been instructed to contact my office with any questions or difficulties. The patient understands the plan and agrees to proceed accordingly. Patient Care Team: Ev Augustin APRN as PCP - General (Internal Medicine) Bebeto Adams MD as Consulting Physician (Pain Medicine) Damien Berg MD as Surgeon (Neurosurgery) Liedy Robertson MD as Consulting Physician (Internal Medicine) New Medications Ordered This Visit Medications ??? baclofen (LIORESAL) 10 MG tablet Sig: Take 1/2 to 1 tab po Qd to bid prn Dispense: 180 tablet Refill: 1 ??? traZODone (DESYREL) 50 MG tablet Sig: Take 1 to 2 tabs po hs prn Dispense: 180 tablet Refill: 2 Future Appointments Date Time Provider Department Center 06/13/2018 2:00 PM Guero Lunsford PA-C [facility] MARK None 07/09/2018 10:00 AM Roc Tracey PA-C [facility] END BM None 07/09/2018 2:[address] [facility] NS MARK 10/11/2018 10:00 AM Ev Augustin APRN [facility] PC BEAUM None 11/11/2018 11:00 AM MA/NURSE GASTRO MARK [facility] GE MARK None 11/12/2018 11:00 AM Slime Hammer APRN [facility] GE MARK None 12/10/2018 1:30 PM Guero Lunsford PA-C [facility] APM MARK None Guero Lunsford PA-C ? documented in this encounter Plan of Treatment Upcoming Encounters Date Type Department Care Team (Late st Contact Info) Description 03/13/2024 2:45 PM EST Office Visit [facility] CARDIOLOGY [address] [place] [address] [place] [address] Pj Ace MD [address] [place] [address] documented as of this encounter Visit Diagnoses Diagnosis Meningeal adhesions/lumbar arachnoiditis- Primary Postlaminectomy syndrome of lumbar region Postlaminectomy syndrome, lumbar region Herniated lumbar intervertebral disc Displacement of lumbar intervertebral disc without myelopathy Lumbar facet arthropathy/lumbar spondylosis without myelopathy Spondylosis of unspecified site without mention of myelopathy Sacroiliac joint dysfunction of left side Myofascial pain syndrome Unspecified myalgia and myositis Diabetes mellitus type 2 in obese Type II or unspecified type diabetes mellitus without mention of complication, not stated as uncontrolled Physical deconditioning Muscular wasting and disuse atrophy, not elsewhere classified Insomnia, unspecified type Therapeutic drug monitoring Encounter for therapeutic drug monitoring documented in this encounter Care Teams Director Of Slot Operations Relationship Specialty Start Date End Date Ev Augustin APRN [address] [place] [address] PCP - General Internal Medicine 04/12/18 08/18/21 documented as of this encounter
--- OUTSIDE RECORDS SUMMARY | 2024-02-20 09:13 | XMS_ITS | Encounter Summary ---
[facility] Address [address] [place] [id number] Care Team Providers Care Burn Table Operator Name Role Phone Ev Augustin APRN Primary Care Provider [phone] Reason for Visit * Reason Onset Date Comments Med Refill 07/19/2018 Encounter Details Date Type Department Care Team (Late st Contact Info) Description 07/19/2018 Refill [facility] INTERNAL MEDICINE [address] [place] [address] Roc Tracey PA-C [address] [facility] [address] [place] [address] Mixed hyperlipidemia; Uncontrolled type 2 diabetes mellitus with hyperglycemia, [...] [facility] [address] [facility] [place] [id number] Pj Ace MD [address] [facility] [address] [place], [place] [id number] documented as of this encounter Visit Diagnoses Diagnosis Mixed hyperlipidemia Uncontrolled type 2 diabetes mellitus with hyperglycemia, without long-term current use of insulin documented in this encounter Care Teams Burn Table Operator Relationship Specialty Start Date End Date Ev Augustin, SHELLFISH CHECKER [address] [place] [address] PCP - General Internal Medicine 04/12/18 08/18/21 documented as of this encounter
--- OUTSIDE RECORDS SUMMARY | 2024-02-20 09:13 | XMS_ITS | Encounter Summary ---
[facility] Address [address] [place] [id number] Care Team Providers Care Drum Attendant Name Role Phone Ev Augustin APRN Primary Care Provider [phone] Encounter Details Date Type Department Care Team (Latest Contact Info) Description 06/10/2018 11:15 AM EDT Clinical Support [facility] GASTROENTEROLOGY [address] [facility] [address] [place] [address] Encounter for preventive measure (Primary Dx); Encounter for immunization Social History Tobacco Use Types Packs/Day Years [...] CENTER CARDIOLOGY [address] [place] [address] [address] [place] [address] Pj Ace MD [address] [facility] [address] [facility] [address] [place] [address] documented as of this encounter Visit Diagnoses Diagnosis Encounter for preventive measure- Primary Encounter for immunization documented in this encounter Care Teams Drum Attendant Relationship Specialty Start Date End Date Ev Augustin APRN [address] [place] [address] PCP - General Internal Medicine 04/12/18 08/18/21 documented as of this encounter
--- OUTSIDE RECORDS SUMMARY | 2024-02-20 09:13 | XMS_ITS | Encounter Summary ---
[facility] [address] [place] [address] Care Team Providers Care Mandolin Repair Person Name Role Phone Ev Augustin APRN Primary Care Provider [phone] [phone] Encounter Details Date Type Department Care Team (Late st Contact Info) Description 06/04/2018 Refill [facility] PAIN MANAGEMENT [address] [address] Kandi Myrick MA Meningeal adhesions/lumbar arachnoiditis; Postlaminectomy syndrome of lumbar [...] Telephone Encounter - Kandi Myrick MA - 06/04/2018 12:51 PM EST Rx sent. Appointment scheduled ----- Message from Bebeto Adams MD sent at 06/03/2018 3:55 PM EST ----- Please give her an appt with jaki hawk. May refill now Thanks ----- Message ----- From: Kandi Aguilera MA Sent: 06/03/2018 3:53 PM To: Bebeto Adams MD Received refill request for Tramadol. Patient last seen 01/30/18. Abrahan report # [id number] scanned to media. Please advise documented in this encounter Plan of Treatment Upcoming Encounters Date Type Department Care Team (Late st Contact Info) Description 03/13/2024 2:45 PM EST Office Visit [facility] CARDIOLOGY [address] [place] [address] [address] [place] [address] Pj Ace MD [address] [facility] [address] [facility] [address] [place] [address] documented as of this encounter Visit Diagnoses Diagnosis Meningeal adhesions/lumbar arachnoiditis Postlaminectomy syndrome of lumbar region Postlaminectomy syndrome, lumbar region Herniated lumbar intervertebral disc Displacement of lumbar intervertebral disc without myelopathy documented in this encounter Care Teams Mandolin Repair Person Relationship Specialty Start Date End Date Ev Augustin, CONCRETE BOOM OPERATOR [address] [place] [address] PCP - General Internal Medicine 04/12/18 08/18/21 documented as of this encounter
--- OUTSIDE RECORDS SUMMARY | 2024-02-20 09:13 | XMS_ITS | Encounter Summary ---
[facility] [address] [place] [id number] Care Team Providers Care Slurry Blender Name Role Phone Ev Augustin APRN Primary Care Provider [phone] Encounter Details Date Type Department Care Team (Late st Contact Info) Description 08/06/2018 Telephone [facility] PAIN MANAGEMENT [address] [place] [address] Kandi Myrick MA Social History Tobacco [...] Telephone Encounter - Kandi Myrick MA - 08/06/2018 7:50 AM EDT Received faxed request from [facility] requesting refill on Tramadol 50 mg on 08/02/18. 90 daysupply was sent on 06/04/18 however only a 7 day supply was dispensed. Called [facility] to find out why. They stated that since it was the first fill of the year anything beyond a 7 day supply required prior authorization and the patient chose do the 7 day instead. They need a new Rx to refill. Rx faxed to [phone] documented in this encounter Plan of Treatment Upcoming Encounters Date Type Department Care Team (Late st Contact Info) Description 03/13/2024 2:45 PM EST Office Visit [facility] CARDIOLOGY [address] [place] [address] Pj Ace MD [address] [facility] [address] [place] [address] documented as of this encounter Visit Diagnoses Not on filedocumented in this encounter Care Teams Slurry Blender Relationship Specialty Start Date End Date Ev Augustin, VASILE [address] [place] [address] PCP - General Internal Medicine 04/12/18 08/18/21 documented as of this encounter
--- OUTSIDE RECORDS SUMMARY | 2024-02-20 09:13 | XMS_ITS | Encounter Summary ---
[facility] [address] [place] [address] Care Team Providers Care Ladies Attendant Name Role Phone Ev Augustin APRN Primary Care Provider [phone] [phone] Reason for Visit * Reason Onset Date Comments Med Refill 04/05/2018 Encounter Details Date Type Department Care Team (Late st Contact Info) Description 04/05/2018 Telephone [facility] INTERNAL MEDICINE [address] [place] [address] Roc Tracey PA-C [address] [place] [address] Med Refill Social History Tobacco Use Types [...] Telephone Encounter - Ambar Morrow MA - 04/05/2018 3:14 PM EST I have received the PA but pt was informed that we will need blood work to get it approved. PT hs already missed one does and unable to get meds right now so Roc feels like the blood work will becompromised. Offered an earlier appt so she could talk to Roc but she is not available due to other appts. * Telephone Encounter - ThienShikha - 04/05/2018 1:35 PM EST PATIENT STATES THAT THEY NEED A PRIOR AUTH ON THE PRALUENT 75MG MEDICATION AND SHE STATES THAT HER PHARM SENT OVER THE DENIAL LETTER. COULD YOU PLEASE CHECK ON THIS .AND GIVE THE PATIENT A CALL BACK AT [phone] documented in this encounter Plan of Treatment Upcoming Encounters Date Type Department Care Team (Late st Contact Info) Description 03/13/2024 2:45 PM EST Office Visit [facility] CARDIOLOGY [address] [place] [address] Pj Ace MD [address] [facility] [address] [place] [address] documented as of this encounter Visit Diagnoses Not on filedocumented in this encounter Care Teams Ladies Attendant Relationship Specialty Start Date End Date Ev Augustin APRN [address] [place] [address] PCP - General Internal Medicine 04/12/18 08/18/21 documented as of this encounter
--- OUTSIDE RECORDS SUMMARY | 2024-02-20 09:13 | XMS_ITS | Encounter Summary ---
[facility] Address [address] [place] [address] Care Team Providers Care Industrial Order Clerk Name Role Phone Guerline Randall APRN Primary Care Provider [phone] Reason for Visit * Reason Onset Date Comments Med Refill 03/29/2018 Encounter Details Date Type Department Care Team (Late st Contact Info) Description 03/29/2018 Refill [facility] INTERNAL MEDICINE [address] [place] [address] Roc Tracey PA-C [address] [place] [address] Type 2 diabetes mellitus without complication, without [...] Telephone Encounter - Ambar Morrow MA - 04/03/2018 10:19 AM EST Pt informed that no samples were available at the time * Telephone Encounter - Shikha Neumann - 03/29/2018 3:39 PM EST PATIENT WOULD LIKE TO GET A REFILL ON HER BYDUREON MEDICATION. SHE STATES THAT SHE WOULD LIKE TO KNOW IF THEIR IS ANY SAMPLES UNTIL THE MEDICATION IS FILLED? documented in this encounter Plan of Treatment Upcoming Encounters Date Type Department Care Team (Late st Contact Info) Description 03/13/2024 2:45 PM EST Office Visit [facility] CARDIOLOGY [address] [place] [address] [place] [address] Pj Ace MD [address] [place] [address] documented as of this encounter Visit Diagnoses Diagnosis Type 2 diabetes mellitus without complication, without long-term current use of insulin documented in this encounter Care Teams Industrial Order Clerk Relationship Specialty Start Date End Date Guerline Randall APRN [address] [place] [address] PCP - General Family Medicine 12/19/17 04/11/18 documented as of this encounter
--- OUTSIDE RECORDS SUMMARY | 2024-02-20 09:14 | XMS_ITS | Encounter Summary ---
Author Organization [facility] Address [address] [place] [address] Care Team Providers Care Industrial Aerial Installer Name Role Phone Madelaine Norman APRN Primary Care Provider [phone] Reason for Visit * Reason Comments Med Refill Encounter Details Date Type Department Care Team (Late st Contact Info) Description 08/07/2017 Refill [facility] PAIN MANAGEMENT [address] [facility] [address] [place] [address] Bebeto Adams MD [address] [facility] [address] [place] [address] Social History Tobacco Use Types Packs/Day Years [...] HOSPITAL CARDIOLOGY [address] [place] [address] Pj Ace MD [address] [facility] [address] [place], [place] [id number] documented as of this encounter Visit Diagnoses Not on filedocumented in this encounter Care Teams Industrial Aerial Installer Relationship Specialty Start Date End Date Madelaine Norman APRN [address] [place] [address] PCP - General Internal Medicine 12/13/16 09/07/17 documented as of this encounter
--- OUTSIDE RECORDS SUMMARY | 2024-02-20 09:14 | XMS_ITS | Encounter Summary ---
[facility] [address] [place] [address] Care Team Providers Care Ice Scraper Name Role Phone Guerline Randall APRN Primary Care Provider [phone] Encounter Details Date Type Department Care Team (Latest Contact Info) Description 01/30/2018 1:00 PM EDT Office Visit [facility] PAIN [facility]NAGEMENT [address] [facility] [address] [place] [address] Guero Lunsford PA-C Meningeal adhesions/lumbar arachnoiditis (Primary Dx); Postlaminectomy syndrome of lumbar region; Herniated lumbar intervertebral disc; Lumbar facet arthropathy/lumbar spondylosis without myelopathy; Sacroiliac joint dysfunction of left side; Myofascial pain syndrome; Diabetes mellitus type 2 in obese; Moderate obesity; Physical deconditioning; Insomnia, unspecified type; Therapeutic drug [...] Sign Reading Time Taken Comments Blood Pressure 112/70 01/30/2018 1:11 PM EDT Pulse 67 01/30/2018 1:11 PM EDT Temperature 36.7 ??C (98 ??F) 01/30/2018 1:11 PM EDT Respiratory Rate 18 01/30/2018 1:11 PM EDT Oxygen Saturation 92% 01/30/2018 1:11 PM EDT Inhaled Oxygen Concentration - - Weight 86.3 kg (190 lb 3.2 oz) 01/30/2018 1:11 P M EDT Height 157.5 cm (5' 2 ) 01/30/2018 1:11 PM EDT Body Mass Index 34.79 01/30/2018 1:11 PM EDT documented in this encounter Progress Notes * Guero Lunsford PA-C - 01/30/2018 1:00 PM EDT Chief Complain: I need my medications refilled. ?? Brief History: Ms. Gonzalez has a history of chronic lower back and left leg pain. She presents to the clinic today for medication refills. She takes baclofen, trazodone, diclofenac, and tramadol for her chronic pain. Patient reports that she is doing well with the medications, and she denies any adverse effects. She was last seen on 05/07/2017 for SCS reprogramming. Patient states that she has notused her SCS since last reprogrammed because she feels better without it. Of note, patient states that recent labs (December 2017) ordered by PCP showed elevated liver enzymes. Patient states that she has a gastroenterology consultation on 02/08/2018. Pain level ranges from 1/10 to 8/10 without the use of her spinal cord stimulator. Pain location: Left lower back, buttocks, and left leg. Quality of pain: deep ache and burning Radiation of pain: Left gluteal region to the posterior aspect of left thigh, left calf, and into the dorsal aspect of her left foot. Current analgesics: baclofen, tramadol, diclofenac, Lidocaine Patches and Tylenol I have reviewed [facility] #[id number] consistent with medication reconciliation. Global Pain Scale 01-30-2018 Pain 13 Feelings 16 Clinical outcomes 17 Activities 15 GPS Total: 61 Diagnostic Studies: XR SPINE, THORACIC, 1 VW-03/22/2017: [...] There is no spinal stenosis. There are ??degenerative changes primarily manifest by anterior osteophytes in the mid and lower thoracic region. No paraspinous mass. There is no compression fracture. There is no blastic or lytic process. IMPRESSION: There is evidence of laminectomy at T9 and T10 where there is insertion of a spinal cord stimulator which is placed at the level of T7. There are mild diffuse osteoarthritic changes. There is no compression fracture or subluxation. There is no spinal stenosis. UDS on 07/27/2016, appropriate UDS on 03/07/2016, [...] joints from 07/20/2015 revealed lumbosacral and SI arthropathy.XR SPINE, THORACIC, 1 VW-03/22/2017: No evidence for acute fracture, subluxation or dislocation of the thoracicspine with spinal cord stimulator terminating at the T7 superior endplate level. ? The following portions of the patient's history were reviewed and updated as appropriate: problem list, past medical history, past surgery history, social history, family history, medications, and allergies ?? Review of Systems Musculoskeletal: Positive for arthralgias, back pain, joint swelling and myalgias. Neurological: Positive for headaches. All other systems reviewed and are negative. BP 112/70 Pulse 67 Temp 98 ??F (36.7 ??C) (Temporal Artery ) Resp 18 Ht 157.5 cm (62 ) Wt86.3 kg (190 lb 3.2 oz) LMP (LMP Unknown) SpO2 92% BMI 34.79 kg/m?? Physical Exam Neurologic Exam Constitutional: No acute distress, well appearing. Obese. Head and Face: Normal. Eyes: Conjunctiva and lids: No swelling, erythema or discharge. Pupils: Equal, round, reactive to light. Pulmonary Respiratory effort: No increased work of breathing or signs of respiratory distress. Auscultation of lungs: Clear to auscultation bilaterally. Cardiovascular Auscultation of heart: Normal rate and [...] raising test is positive on the left. Femoral stretch sign is negative. Negative clonus bilaterally. Sensation: No sensory loss. [...] mellitus type 2 in obese (CMS/HCC) 8. Moderate obesity 9. Physical deconditioning 10. Insomnia, unspecified type 11. Therapeutic drug monitoring PLAN: I have reviewed the above medical records, and discussed the patient with Dr. Adams. 1. Diagnostics: Random UDS and CMP. 2. Pharmacological measures. Reviewed and discussed. A. Continue topiramate 50 mg twice daily. B. Continue trazodone 50-100 mg each bedtime for insomnia. Refilled. C. Diclofenac: Did not refill today. Advised patient that we may need to discontinue if abnormal liver enzymes. She is not currently taking, as she has been out. Patient has an upcoming GI consult. D. Continue baclofen 10 mg 1/2 to [...] agrees to proceed accordingly. Patient Care Team: Guerline Randall APRN as PCP - General (Family Medicine) Guerline Randall APRN as PCP - Internal Medicine (Family Medicine) Bebeto Adams MD as Consulting Physician (Pain Medicine) Damien Berg MD as Surgeon (Neurosurgery) Leidy Robertson MD as Consulting Physician (Internal Medicine) New Medications Ordered This Visit Medications ??? traZODone (DESYREL) 50 MG tablet Sig: Take 1 to 2 tabs po hs prn Dispense: 180 tablet Refill: 2 ??? baclofen (LIORESAL) 10 MG tablet Sig: Take 1 tablet by mouth 2 (Two) Times a Day As Needed for Muscle Spasms. Take 1/2 to 1 tab po Qd to bid prn Dispense: 270 tablet Refill: 3 Future Appointments Date Time Provider Department Center 02/08/2018 9:00 AM Slime Hammer, VASILE [facility] None 03/15/2018 2:30 PM Roc Tracey PA-C [facility] None 03/15/2018 3:15 PM Guerline Randall APRN [facility] None Guero Lunsford PA-C ? documented in this encounter Plan of Treatment Upcoming Encounters Date Type Department Care Team (Late st Contact Info) Description 03/13/2024 2:45 PM EST Office Visit [facility] CARDIOLOGY [address] [place] [address] [place] [address] Pj Ace MD [address] [facility] [address] [address] documented as of this encounter Procedures Procedure Name Priority Date/Time Associated Diagnosis Comments URINE DRUG SCREEN Routine 01/30/2018 1:5 2 PM EDT Therapeutic drug monitoring documented in this encounter Results * (ABNORMAL) Comprehensive Metabolic Panel (01/30/2018 1:52 PM EDT) Glucose 94 70 - 100 mg/dL 01/30/2018 5:27 PM EDT [facility] BUN 21 9 - 23 mg/dL 01/30/2018 5:27 PM EDT [facility] Creatinine 0.80 0.60 - 1.30 mg/dL 01/30/2018 5:27 PM EDT [facility] Sodium 140 132 - 146 mmol/L 01/30/2018 5:27 PM EDT [facility] Potassium 4.8 3.5 - 5.5 mmol/L 01/30/2018 5:27 PM EDT [facility] Chloride 103 99 - 109 mmol/L 01/30/2018 5:27 PM EDT [facility] CO2 29.0 20.0 - 31.0 mmol/L 01/30/2018 5:27 PM EDT [facility] Calcium 9.9 8.7 - 10.4 mg/dL 01/30/2018 5:27 PM EDT [facility] Total Protein 7.2 5.7 - 8.2 g/dL 01/30/2018 5:27 PM EDT [facility] Albumin 4.70 3.20 - 4.80 g/dL 01/30/2018 5:27 PM EDT [facility] ALT (SGPT) 114(H) 7 - 40 U/L 01/30/2018 5:27 PM EDT [facility] AST (SGOT) 74(H) 0 - 33 U/L 01/30/2018 5:27 PM EDT [facility] Alkaline Phosphatase 153(H) 25 - 100 U/L 01/30/2018 5:27 PM EDT [facility] Total Bilirubin 0.5 0.3 - 1.2 mg/dL 01/30/2018 5:27 PM EDT [facility] eGFR Non Amer 73 >60 mL/min/1.7 3 01/30/2018 5:27 PM EDT [facility] Globulin 2.5 gm/dL 01/30/2018 5:27 PM EDT [facility] A/G Ratio 1.9 1.5 - 2.5 g/dL 01/30/2018 5:27 PM EDT [facility] BUN/Creatinine Ratio 26.3(H) 7.0 - 25.0 01/30/2018 5:27 PM EDT [facility] Anion Gap 8.0 3.0 - 11.0 mmol/L 01/30/2018 5:27 PM T [facility] Blood Venipuncture / Unknown 01/30/2018 1:52 PM EDT 01/30/2018 1:52 PM EDT [facility] - 01/30/2018 5:27 PM EDT National Kidney [employer] Guidelines Stage ? Description ?GFR 1 ? Normal or High ? 90+ 2 ? Mild decrease ?60-89 3 ? Moderate decrease ??30-59 4 ? Severe decrease ?15-29 5 ? Kidney failure ? <15 The MDRD GFR formula is only valid for adults with stable renal function between ages 18 and 70. us Guero Lunsford PA-C LAB BLOOD ORDERABLES Final R esult [facility]
[address] [place] [address], * Urine Drug Screen - Urine, Clean Catch (01/30/2018 1:52 PM EDT) [facility] THC, Screen, Urine Negative Negative 2017 4:48 PM EDT [facility] Phencyclidine (PCP), Urine Negative Negative 01/30/2018 4:48 PM EDT [facility] Cocaine Screen, Urine Negative Negative 01/30/2018 4:48 PM EDT [facility] Methamphetamine, Ur Negative Negative 01/30 4:48 PM EDT [facility] Opiate Screen Negative Negative 01/30/2018 4:48 PM EDT [facility] Amphetamine Screen, Urine Negative Negative 01/30/2018 4:48 PM EDT [facility] Benzodiazepine Screen, Urine Negative Negative 01/30/2018 4:48 PM EDT [facility] Tricyclic Antidepressants Screen Negative Negative 01/30/2018 4:48 PM EDT [facility] Methadone Screen, Urine Negative Negative 01/30/2018 4:48 PM EDT [facility] Barbiturates Screen, Urine Negative Negative 01/30/2018 4:48 PM EDT [facility] Oxycodone Screen, Urine Negative Negative 01/30/2018 4:48 PM EDT [facility] Propoxyphene Screen Negative Negative 01/30 4:48 PM EDT [facility] Buprenorphine, Screen, Urine Negative Negative 01/30/2018 4:48 PM EDT [facility] Urine Urine specimen collection, clean catch / Unknown Collection / Unknown 01/30/2018 1:52 PM EDT 01/30/2018 1:52 PM EDT Narrative [facility] - 01/30/2018 4:48 PM EDT Cutoff For Drugs Screened: Amphetamines ? 500 ng/ml Barbiturates ? 200 ng/ml Benzodiazepines ?150 ng/ml Cocaine ?150 ng/ml Methadone ?200 ng/ml Opiates ?100 ng/ml Phencyclidine ? 25 ng/ml THC ? 50 ng/ml Methamphetamine ?500 ng/ml Tricyclic Antidepressants ??300 ng/ml Oxycodone ?100 ng/ml Propoxyphene ? 300 ng/ml Buprenorphine ? 10 ng/ml The normal value for all drugs tested is negative. This report includes unconfirmed screening results, with the cutoff values listed, to be used for medical treatment purposes only. ??Unconfirmed results must not be used for non-medical purposes such as employment or legal testing. ??Clinical consideration should be applied to any drug of abuse test, particularly when unconfirmed results are used. ?? us Guero Lunsford PA-C URINE ORDERABLES Final Resul t [facility]
[address] [place] [address], documented in this encounter Visit Diagnoses Diagnosis Meningeal adhesions/lumbar [...] mention of complication, not stated as uncontrolled Moderate obesity Physical deconditioning Muscular wasting and disuse atrophy, not elsewhere classified Insomnia, unspecified type Therapeutic drug monitoring Encounter for therapeutic drug monitoring documented in this encounter Care Teams Ice Scraper Relationship Specialty Start Date End Date Guerline Randall APRN [address] [place] [address] PCP - General Family Medicine 12/19/17 04/11/18 documented as of this encounter
--- OUTSIDE RECORDS SUMMARY | 2024-02-20 09:14 | XMS_ITS | Encounter Summary ---
[facility] Address [address] [place] [id number] Care Team Providers Care Php Architect Name Role Phone Guerline Randall APRN Primary Care Provider [phone] Reason for Visit * Reason Comments Med Refill Encounter Details Date Type Department Care Team (Late Contact Info) Description 02/20/2018 Refill [facility] INTERNAL MEDICINE [address] [place] [address] Roc Tracey PA-C [address] [facility] [address] [place] [address] Type 2 diabetes mellitus without complication, without [...] Description 03/13/2024 2:45 PM EST Office Visit [facility] CARDIOLOGY [address] [place] [address] Pj Ace MD [address] [facility] [address] [place] [address] documented as of this encounter Visit Diagnoses Diagnosis Type 2 diabetes mellitus without complication, without long-term current use of insulin documented in this encounter Care Teams Php Architect Relationship Specialty Start Date End Date Guerline Randall APRN [address] [place] [id number] PCP - General Family Medicine 12/19/17 04/11/18 documented as of this encounter
--- OUTSIDE RECORDS SUMMARY | 2024-02-20 09:14 | XMS_ITS | Encounter Summary ---
[facility] Address [address] [address] Care Team Providers Care Party Plan Sales Agent Name Role Phone Guerline Randall APRN Primary Care Provider [phone] Reason for Referral * Diagnostic Imaging (Routine) - Closed Specialty Diagnoses / Procedures Referred By Yodit [place] Referred To Contact Radiology Diagnoses Gastroesophageal reflux disease without esophagitis Nausea Left upper quadrant pain Procedures US Abdomen Complete Guerline Randall APRN Phone: tel: fax: [facility] [address] [place] [address] Phone: tel: Referral ID Status Reason Start Date Expiration Date Visits Re quested Visits Authorized [id number] Closed 12/14/2017 12/14/2018 1 1 Reason for Visit * Diagnostic Imaging (Routine) - Closed Specialty Diagnoses / Procedures [facility] Referred To Contact Radiology Diagnoses Gastroesophageal reflux disease without esophagitis Nausea Left upper quadrant pain Procedures US Abdomen Complete Guerline Randall APRN Phone: tel: fax: [facility] [address] [place] [address] Phone: tel: Referral ID Status Reason Start Date Expiration Date Visits Re quested Visits Authorized [id number] Closed 12/14/2017 12/14/2018 1 1 Encounter Details Date Type Department Care Team (Latest Contact Info) Description 12/26/2017 10:00 AM EDT - 12/26/2017 11:59 PM EDT Hospital Encounter [facility] [address] [place] [address] Guerline Randall, PSS DELIVERY PROFESSIONAL [address] [place] [address] Gastroesophageal reflux disease without esophagitis; Nausea; Left upper quadrant pain Discharge Disposition: Home or Self Care Social [...] this encounter Medications at Time of Discharge acetaminophen (TYLENOL) 500 MG tablet Take 1 [...] Days. 6 pen 1 8 07/09/19 19 baclofen (LIORESAL) 10 MG tablet TAKE INSTRUCTED BY YOUR PRESCRIBER 270 tablet 3 7 01/31/20 18 desvenlafaxine (PRISTIQ) 50 MG 24 hr tablet Take 1 tablet by mouth Daily. 7 05/13/19 19 diclofenac (VOLTAREN) 50 MG EC tablet TAKE 1 TABLET TWICE A DAY WHEN NECESSARY FOR MILD TO MODERATE ACUTE BREAKTHROUGH PAIN, DO NOT TAKE ANY OTHER NSAIDS 60 tablet 3 8 02/09/20 18 estradiol (ESTRACE VAGINAL) 0.1 MG/GM vaginal creamIndications:Va ginal atrophy Insert 2 g into the vagina 1 (One) Time Per Week. 42.5 g 5 7 04/22/19 20 exenatide er (BYDUREON BCISE) 2 MG/0.85ML auto-injector injectionIndication s:Type 2 diabetes mellitus without complication, without long-term current use of insulin Inject 0.85 mL under the skin into the appropriate area as directed 1 (One) Time Per Week. 4 pen 2 8 02/21/20 18 glimepiride (AMARYL) 2 MG tabletIndications:U ncontrolled type 2 diabetes mellitus with hyperglycemia, without long-term current use of insulin Take 1 tablet by mouth Every Morning Before Breakfast. 90 tablet 1 8 04/08/19 19 hydrochlorothiazide (HYDRODIURIL) 25 MG tabletIndications:P eripheral edema 1/2 tablet daily as needed 30 tablet 1 8 01/31/20 18 lidocaine (LIDODERM) 5 % Apply 1 patch topically. To the affected area and leave in place for 12 hours, then remove and leave off for 12 hours 4 01/31/20 18 Liniments (SALONPAS) pads Apply topically. prn 05/26/19 20 NIFEdipine CC (ADALAT CC) 90 MG 24 hr tablet Take 60 mg by mouth Daily. 8 12/30/19 21 NIFEdipine XL (PROCARDIA XL) 30 MG 24 hr tablet Take 60 mg by mouth Daily. 01/31/20 18 omeprazole (priLOSEC) 20 MG capsuleIndications: Gastroesophageal reflux disease without esophagitis Take 1 capsule by mouth Daily. 30 capsule 5 8 02/09/20 18 ondansetron ODT (ZOFRAN-ODT) 4 MG disintegrating tabletIndications:N ausea Take 1 tablet by mouth Every 8 (Eight) Hours As Needed for Nausea or Vomiting. 21 tablet 2 8 01/31/20 18 rOPINIRole (REQUIP) 0.25 MG tabletIndications:R LS (restless legs syndrome) Take 1 tablet by mouth Every Night. Take 1 hour before bedtime. 30 tablet 3 7 04/13/19 19 topiramate (TOPAMAX) 50 MG tablet TAKE ONE TABLET BY MOUTH TWICE DAILY 180 tablet 6 10/20/19 20 traMADol (ULTRAM) 50 MG tabletIndications:M eningeal adhesions,Postlamin ectomy syndrome of lumbar region,Herniated lumbar intervertebral disc A tablet PO TID PRN severe breakthrough pain 270 tablet 8 02/05/20 18 traZODone (DESYREL) 50 MG tablet TAKE 1 TO 2 TABLETS AT BEDTIME NEEDED 180 tablet 2 7 01/31/20 18 documented as of this encounter Plan of Treatment Upcoming Encounters Date Type Department Care Team (Late st Contact Info) Description 03/13/2024 2:45 PM EST Office Visit [facility] CARDIOLOG[facility] [address] [place] [address] [place] [address] Pj Ace MD [address] [facility] [address] [facility] [address] [place], [place] [id number] documented as of this encounter Procedures Procedure Name Priority Date/Time Associated Diagnosis Comments US ABDOMEN COMPLETE Routine 12/26/2017 1 1:21 AM EDT Gastroesophageal reflux disease without esophagitis Nausea Left upper quadrant pain documented in this encounter Results * US Abdomen Complete (12/26/2017 11:21 AM EDT) Anatomical Region Laterality Modality Body, Abdomen Ultrasound 12/26/2017 1:00 PM EDT Impressions 12/26/2017 1:34 PM EDT 1. No cause of left upper quadrant pain identified. 2. Echogenic hepatic parenchyma could be due to fatty infiltration or other form of parenchymal disease. D: ??12/26/2017 E: ??12/26/2017 This report was finalized on 12/26/2017 1:34 PM by Wayne Guallpa. Narrative 12/26/2017 1:34 PM EDT EXAMINATION: US ABDOMEN, COMPLETE-12/26/2017: INDICATION: LUQ abd pain; nausea, GERD; K21.0-Djuidf-shoatsjvbj reflux disease without esophagitis; R11.0-Nausea; R10.12-Left upper quadrant pain. TECHNIQUE: ??Multiplanar nicholson scale ? and color Doppler images of the abdomen were obtained. COMPARISONS: ??CT abdomen/pelvis 11/29/2009. FINDINGS: ??Limited views of the pancreas are unremarkable. ??There is hepatopetal portal venous flow. Liver is echogenic without focal lesion identified. ??There is no intrahepatic or extrahepatic biliary ductal dilatation; the common bile duct diameter is 5 mm at the yolanda. The gallbladder is normal in appearance. ??There is no shadowing gallstone. There is no gallbladder wall thickening or pericholecystic fluid/inflammatory change. The kidneys are grossly unremarkable; no hydronephrosis or shadowing calculus. Spleen is normal. The imaged portions of the aorta and IVC are unremarkable. Procedure Note Wayne Guallpa MD - 12/26/2017 EXAMINATION: US ABDOMEN, COMPLETE-12/26/2017: INDICATION: LUQ abd pain; nausea, GERD; K21.4-Odjbav-wkzlhunukl reflux disease without esophagitis; R11.0-Nausea; R10.12-Left upper quadrant pain. TECHNIQUE: Multiplanar nicholson scale and color Doppler images of the abdomen were obtained. COMPARISONS: CT abdomen/pelvis 11/29/2009. FINDINGS: Limited views of the pancreas are unremarkable. There is hepatopetal portal venous flow. Liver is echogenic without focal lesion identified. There is no intrahepatic or extrahepatic biliary ductal dilatation; the common bile duct diameter is 5 mm at the yolanda. The gallbladder is normal in appearance. There is no shadowing gallstone. There is no gallbladder wall thickening or pericholecystic fluid/inflammatory change. The kidneys are grossly unremarkable; no hydronephrosis or shadowing calculus. Spleen is normal. The imaged portions of the aorta and IVC are unremarkable. IMPRESSION: 1. No cause of left upper quadrant pain identified. 2. Echogenic hepatic parenchyma could be due to fatty infiltration or other form of parenchymal disease. E: 12/26/2017 This report was finalized on 12/26/2017 1:34 PM by Wayne Guallpa. us Guerline Randall APRN IMG US ORDERABLES Final Result documented in this encounter Visit Diagnoses Diagnosis Gastroesophageal reflux disease without esophagitis Esophageal reflux Nausea Nausea alone Left upper quadrant pain Abdominal pain, left upper quadrant documented in this encounter Care Teams Party Plan Sales Agent Relationship Specialty Start Date End Date Guerline Randall APRN [address] [address] PCP - General Family Medicine 12/19/17 04/11/18 documented as of this encounter
--- OUTSIDE RECORDS SUMMARY | 2024-02-20 09:14 | XMS_ITS | Encounter Summary ---
[facility] [address] [place] [address] Care Team Providers Care [facility] Psychiatrist Name Role Phone Unavailable Primary Care Provider Unavailabl e Reason for Visit * Reason Onset Date Comments Med Refill 11/06/2017 Encounter Details Date Type Department Care Team (Late st Contact Info) Description 11/06/2017 Refill [facility] INTERNAL MEDICINE [address] [place] [address] Roc Tracey PA-C [address] [place] [address] Type 2 diabetes mellitus without complication, without [...] encounter Miscellaneous Notes * Telephone Encounter - Ariella Davis - 11/06/2017 11:39 AM EDT 90 DAY SUPPLY PLEASE. documented in this encounter Plan of Treatment Upcoming Encounters Date Type Department Care Team (Late st Contact Info) Description 03/13/2024 2:45 PM EST Office Visit [facility] CARDIOLOGY [address] [facility] [place] [address] [place] [address] Pj Ace MD [address] [facility] [address] [facility] [address] [place] [id number] documented as of this encounter Visit Diagnoses Diagnosis Type 2 diabetes mellitus without complication, without long-term current use of insulin documented in this encounter
--- OUTSIDE RECORDS SUMMARY | 2024-02-20 09:14 | XMS_ITS | Encounter Summary ---
[facility] Address [address] [place] [address] Care Team Providers Care Gang Supervisor Name Role Phone Guerline Randall APRN Primary Care Provider [phone] Reason for Visit * Reason Onset Date Comments Med Refill 02/05/2018 Encounter Details Date Type Department Care Team (Late st Contact Info) Description 02/05/2018 Refill [facility] [address] [facility] [address] [place] [id number] Guero Lunsford, KIRSTEN Social History Tobacco Use Types Packs/Day Years [...] Telephone Encounter - Kandi Myrick MA - 02/05/2018 11:05 AM EST Per [facility]. There was conflicting information on Rx. Had to fix and resend documented in this encounter Plan of Treatment Upcoming Encounters Date Type Department Care Team (Late st Contact Info) Description 03/13/2024 2:45 PM EST Office Visit [facility] CARDIOLOGY [address] [facility] [place] [address] Pj Ace MD [address] [place] [address] documented as of this encounter Visit Diagnoses Not on filedocumented in this encounter Care Teams Gang Supervisor Relationship Specialty Start Date End Date Guerline Randall APRN [address] [place] [address] PCP - General Family Medicine 12/19/17 04/11/18 documented as of this encounter
--- OUTSIDE RECORDS SUMMARY | 2024-02-20 09:14 | XMS_ITS | Encounter Summary ---
[facility] [address] [place] [address] Care Team Providers Care Slab Tripper Name Role Phone Unavailable Primary Care Provider Unavailabl e Reason for Visit * Reason Comments Diabetes Follow Up, Madelaine pt . Hypertension Med Refill Pt needs updated Rx, some are under her pain mngt Edema Encounter Details Date Type Department Care Team (Late st Contact Info) Description 09/12/2017 11:15 AM EDT Office Visit [facility] [address] [place] [address] Guerline Randall, TOBACCO STEMMER MACHINE [address] [facility] [address] [place] [address] Peripheral edema (Primary Dx); Leg cramp; Uncontrolled type 2 diabetes mellitus with hyperglycemia, without long-term current use of insulin; Benign essential hypertension; Generalized anxiety disorder; Postlaminectomy syndrome of lumbar region Social History Tobacco Use Types Packs/Day Years [...] Sign Reading Time Taken Comments Blood Pressure 124/64 09/12/2017 11:29 AM EDT Pulse 70 09/12/2017 11:29 AM EDT Temperature - - Respiratory Rate - - Oxygen Saturation 95% 09/12/2017 11:29 AM EDT Inhaled Oxygen Concentration - - Weight 87.1 kg (192 lb) 09/12/2017 11:29 AM EDT Height 157.5 cm (5' 2 ) 09/12/2017 11:29 AM EDT Body Mass Index 35.12 09/12/2017 11:29 AM EDT documented in this encounter Progress Notes * Guerline Randall Deborah, TOBACCO STEMMER MACHINE - 09/12/2017 11:15 AM EDT CHIEF COMPLAINT Diabetes (Follow Up, Madelaine pt.); Hypertension; and Med Refill (Pt needs updated Rx, some are underher pain mngt ) HPI Gertrudis Gonzalez is a 61 y.o. female is here today for follow-up of chronic health conditions T2DM Uncontrolled, currently taking Precose 100 mg TID w/meals and Bydureon Bcise 2mg SC weekly; last A1C=8.9 in May 2017; does not watch carbs, sugars, and starches very closely; does not check glucose at home; is compliant with medication HTN Controlled, currently taking nifedipine XL 30 mg daily, nifedinpine CC 90 mg daily; followed by Dr.B.K. Boucher, Cardiology in [place]; next visit 09/20/17; denies chest pain, dizziness, h/a, SOA Edema Does have increased swelling in BLE occ up to knee, but mostly in ankles/feet; occ increased SOA; no persistent cough or severe SOA; does not take a diuretic for BP or swelling Anxiety/depression;MICHAEL Followed by Dr. Burks, psychology, he prescribes Pristiq 50 mg daily and Trazodone 50 mg at bedtime; stable at this time Chronic pain Followed by Dr. Adams with [facility], prescribes tramadol 50 mg, baclofen 10 mg, and diclofenac 50 mg for her chronic back pain; also receives injections for pain Leg cramps C/o leg cramps at night; does have RLS and currently takes ropinirole 0.25 mg at night--this works well; cramps are different that restlessness--sudden cramping in calves and occ thigh muscles Past Medical History: Diagnosis Date ??? Anxiety [...] ??? SPINAL CORD STIMULATOR IMPLANT 2015 replacement Family History Problem Relation Age of Onset ??? Hypertension Mother ??? Peripheral vascular disease Mother ??? Lung disease Father ??? Diabetes Other type 2 Social History Social History ??? Marital status: Spouse name: N/A ??? Number of children: N/A ??? Years of education: N/A Occupational History ??? Not on file. Social History Main Topics ??? Smoking status: Never Smoker ??? Smokeless tobacco: Never Used ??? Alcohol use No ??? Drug use: No ??? Sexual activity: Defer Other Topics Concern ??? Not on file Social History Narrative ??? No narrative on file The following portions of the patient's history were reviewed and updated as appropriate: allergies, current medications, past family history, past medical history, past social history, past surgicalhistory and problem list. ROS Review of Systems Constitutional: Negative for activity change, appetite change and fatigue. Respiratory: Negative for chest tightness, shortness of breath and wheezing. Cardiovascular: Positive for leg swelling. Negative for chest pain and palpitations. Endocrine: Negative for cold intolerance, heat intolerance, polydipsia, polyphagia and polyuria. Musculoskeletal: Positive for myalgias. Neurological: Negative for dizziness and headaches. Psychiatric/Behavioral: The patient is nervous/anxious. All other systems reviewed and are negative. BP 124/64 Pulse 70 Ht 157.5 cm (62 ) Wt 87.1 kg (192 lb) LMP (LMP Unknown) SpO2 95% ? No BMI 35.12 kg/m?? PHYSICAL EXAM Physical Exam Constitutional: She is oriented to person, place, and time. She appears well- developed and well-nourished. HENT: Head: Normocephalic and atraumatic. Eyes: Conjunctivae are normal. Neck: Trachea normal and normal range of motion. Neck supple. No JVD present. No thyromegaly present. Cardiovascular: Normal rate, regular rhythm and normal heart sounds. No murmur heard. 1-2+ pitting edema Pulmonary/Chest: Effort normal and breath sounds normal. Neurological: She is alert and oriented to person, place, and time. Skin: Skin is warm, dry and intact. Vitals reviewed. ASSESSMENT/PLAN 1. Peripheral edema -start HCTZ prn swelling in ankles/feet - hydrochlorothiazide (HYDRODIURIL) 25 MG tablet; 1/2 tablet daily as needed Dispense: 30 tablet; Refill: 1 - Basic metabolic panel--check electrolytes 2. Leg cramp -low magnesium can cause muscle cramping - Magnesium -continue ropinirole 0.25 mg at bedtime for RLS 3. Uncontrolled type 2 diabetes mellitus with hyperglycemia, without long-term current use of insulin ([facility]) -continue Precose 100 mg TID with meals -continue Bydureon Bcise 2 mg weekly -should check glucose at home at least daily 4. Benign essential hypertension -continue nifedipine XL 30 mg daily and nifedipine CC 90 mg daily -keep scheduled f/u with cardiology 5. Generalized anxiety disorder -continue regular visits with Dr. Burks -take Pristiq and Trazodone as prescribed 6. Postlaminectomy syndrome of lumbar region -continue regular visits with Dr. Adams for pain management Plan of care reviewed with patient at the conclusion of today's visit. Education was provided in regards to diagnosis, management and any prescribed or recommended OTC medications. Patient verbalizesUnderstanding of and agreement with management plan. FOLLOW-UP 3 month(s) PE with labs RTC as needed Guerline Randall APRN 09/12/2017 documented in this encounter Plan of Treatment Upcoming Encounters Date Type Department Care Team (Late st Contact Info) Description 03/13/2024 2:45 PM EST Office Visit [facility] [address] [place] [address] [place] [address] Pj Ace MD [address] [facility] [address] [facility] [address] [place] [address] documented as of this encounter Procedures Procedure Name Priority Date/Time Associated Diagnosis Comments MAGNESIUM Routine 09/12/2017 12:55 PM EDT Leg cramp BASIC METABOLIC PANEL Routine 09/12/2017 12:55 PM EDT Peripheral edema documented in this encounter Results * Magnesium (09/12/2017 12:55 PM EDT) Pathologist [facility] Magnesium 2.1 1.3 - 2.7 mg/dL 09/12/2017 5:19 PM EDT [facility] Blood Venipuncture / Unknown 09/12/2017 12:55 PM EDT 09/12/2017 12:55 PM EDT us Guerline Randall APRN LAB BLOOD ORDERABLES Final Res ult [facility]
[address] [place] [address], * (ABNORMAL) Basic metabolic panel (09/12/2017 12:55 PM EDT) Glucose 202(H) 70 - 100 mg/dL 09/12/2017 5:19 PM EDT [facility] BUN 26(H) 9 - 23 mg/dL 09/12/2017 5:19 PM EDT [facility] Creatinine 0.80 0.60 - 1.30 mg/dL 09/12/2017 5:19 PM EDT [facility] Sodium 140 132 - 146 mmol/L 09/12/2017 5:19 PM EDT [facility] Potassium 4.0 3.5 - 5.5 mmol/L 09/12/2017 5:19 PM EDT [facility] Chloride 103 99 - 109 mmol/L 09/12/2017 5:19 PM EDT [facility] CO2 28.0 20.0 - 31.0 mmol/L 09/12/2017 5:19 PM EDT [facility] Calcium 9.4 8.7 - 10.4 mg/dL 09/12/2017 5:19 PM EDT [facility] eGFR Non Amer 73 >60 mL/min/1.7 3 09/12/2017 5:19 PM EDT [facility] BUN/Creatinine Ratio 32.5(H) 7.0 - 25.0 09/12/2017 5:19 PM EDT [facility] Anion Gap 9.0 3.0 - 11.0 mmol/L 09/12/2017 5:19 PM EDT [facility] Blood Venipuncture / Unknown 09/12/2017 12:55 PM EDT 09/12/2017 12:55 PM EDT [facility] - 09/12/2017 5:19 PM EDT National Kidney Foundation Guidelines Stage ? Description ?GFR 1 ? Normal or High ? 90+ 2 ? Mild decrease ?60-89 3 ? Moderate decrease ??30-59 4 ? Severe decrease ?15-29 5 ? Kidney failure ? <15 us Guerlinesom Randall TOBACCO STEMMER MACHINE LAB BLOOD ORDERABLES Final Res ult [facility]
[address] [place] [id number], documented in this encounter Visit Diagnoses Diagnosis Peripheral edema- Primary Edema Leg cramp Cramp of limb Uncontrolled type 2 diabetes mellitus with hyperglycemia, without long-term current use of insulin Benign essential hypertension Essential hypertension, benign Generalized anxiety disorder Postlaminectomy syndrome of lumbar region Postlaminectomy syndrome, lumbar region documented in this encounter
--- OUTSIDE RECORDS SUMMARY | 2024-02-20 09:14 | XMS_ITS | Encounter Summary ---
[facility] Address [address] [place] [id number] Care Team Providers Care Premium Service Representative Name Role Phone Guerline Randall APRN Primary Care Provider [phone] Reason for Visit * Reason Onset Date Comments Med Refill 02/04/2018 Encounter Details Date Type Department Care Team (Late Contact Info) Description 02/04/2018 Refill [facility] [address] [facility] [address] [place] [id number] Bebeto Adams MD [address] [facility] [address] [place] [address] Meningeal adhesions/lumbar arachnoiditis; Postlaminectomy syndrome of lumbar [...] HOSPITAL CARDIOLOGY [address] [place] [address] [address] [place] [address] Pj Ace MD [address] [facility] [address] [place] [address] documented as of this encounter Visit Diagnoses Diagnosis Meningeal adhesions/lumbar arachnoiditis Postlaminectomy syndrome of lumbar region Postlaminectomy syndrome, lumbar region Herniated lumbar intervertebral disc Displacement of lumbar intervertebral disc without myelopathy documented in this encounter Care Teams Premium Service Representative Relationship Specialty Start Date End Date Guerline Randall APRN [address] [facility] [address] [place] [id number] PCP - General Family Medicine 12/19/17 04/11/18 documented as of this encounter
--- OUTSIDE RECORDS SUMMARY | 2024-02-20 09:14 | XMS_ITS | Encounter Summary ---
[facility] [address] [place] [id number] Care Team Providers Care Medical Manager Name Role Phone Guerline Randall APRN Primary Care Provider [phone] Reason for Visit * Health Education (Routine) - Closed Specialty Diagnoses / Procedures Referred By Contac t Referred To Contact Nutrition Diagnoses NAFLD (nonalcoholic fatty liver disease) Slime Hammer APRN [facility] [address] [place] [address] Phone: tel: fax: Referral ID Status Reason Start Date Expiration Date V isits Requested Visits Authorized [id number] Closed Specialty Services Required 02/08/2018 02/08/2019 12 12 Encounter Details Date Type Department Care Team (Latest Contact Info) Description 03/12/2018 11:00 AM EST - 03/12/2018 11:59 PM [facility] Hospital Encounter [facility] [address] [place] [address] Kandy Laureano, RD Discharge Disposition: [...] - Inhaled Oxygen Concentration - - Weight 86.2 kg (190 lb) 03/12/2018 12:48 PM EST Height 157.5 cm (5' 2 ) 03/12/2018 12:48 PM EST Body Mass Index 34.75 03/12/2018 12:48 PM EST documented in this encounter Medications [...] 5 mg by mouth Daily. 09/06/19 22 BYDUREON BCISE 2 MG/0.85ML auto-injector injectionIndication s:Type 2 diabetes mellitus without complication, without long-term current use of insulin INJECT 0.85 ML UNDER THE SKIN INTO THE APPROPRIATE AREA ONE TIME PER WEEK DIRECTED 3.4 mL 2 8 04/03/19 19 desvenlafaxine (PRISTIQ) 50 MG 24 hr tablet Take 1 tablet by mouth Daily. 7 05/13/19 19 estradiol (ESTRACE VAGINAL) 0.1 MG/GM vaginal creamIndications:Va ginal atrophy Insert 2 g into the vagina 1 (One) Time Per Week. 42.5 g 5 7 04/22/19 20 glimepiride (AMARYL) 2 MG tabletIndications:U ncontrolled type 2 diabetes mellitus with hyperglycemia, without long-term current use of insulin Take 1 tablet by mouth Every Morning Before Breakfast. 90 tablet 1 8 04/08/19 19 Liniments (SALONPAS) pads Apply topically. prn [...] 06/14/19 19 documented as of this encounter Consult Notes * Kandy Laureano, RD - 03/12/2018 1:00 PM EST Adult Outpatient Nutrition Assessment/PES Patient Name: Gertrudis Gonzalez Date of : 1955 Assessment Date: 03/12/2018 Comments: Patient describes problems with fatty liver disease and obesity. Wants to obtain information on realistic meal planning strategies to lose weight and improve liver function. Patient is familiar to RD as she has attempted weight loss in the past. Discussed nutrition benefits of making dietary changes. Recommended to start by eating on a consistent schedule. Patient states that she skips meals often or goes long periods of time without eating, then overeats at night. Discussed meals to eat for breakfast, lunch, and dinner that are nutrient dense, high in fiber, and low in fat and sodium. Used food models and plate method for meal planning and portion sizes. Discussed avoiding high fructose corn syrup and practiced reading labels during the session. Recommended to drink mostly water and diet soda as opposed to regular soda. The instructional process also included restaurant nutrition, food record keeping, and exercise. Materials provided include fatty liver nutrition guidelines, [facility] Weight [facility] Toolkit, 1300 kcalorie meal plan and sample menu, and supporting nutrition education materials. No barriers to learning. Newest Vital Sign Health Literacy Assessment completed today. Per health assessment, patient has adequate health literacy. Goals: -Eat 3 meals per day. Avoid skipping meals. -Choose grilled/baked meats instead of fried. -Omit high fructose corn syrup by reading labels. -Lose 0.5-1.0# of body weight per week. Total of 60 minutes spent with patient on nutrition counseling. Patient was provided with RD's contact information. Follow up visit is scheduled for 04/10/2018 at 1:30 p.m. Thank you for this referral. 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 No General Information How Well Do You Speak Moroccan? very well Do You Speak a Language Other Than Moroccan at Home? no Preferred Language Moroccan Are you able to read and write Moroccan? Yes Lives With spouse Last grade of school completed 12th grade Name and relationship of caregiver (if applicable) n/a Is patient ? no Physical Findings Row Name 03/12/18 1242 Physical Findings Overall Physical Appearance obese Anthropometrics Row Name 03/12/18 1248 Anthropometrics Height 157.5 cm (62 ) Weight 86.2 kg (190 lb) [place] Body Weight (IBW) [place] Body Weight (IBW) (kg) 50.43 % [place] Body Weight 170.89 Body Mass Index (BMI) BMI (kg/m2) 34.82 IBW Adjustment, Para/Tetraplegia 5% Adjustment, Para (IBW) 47.91 10% Adjustment, Para (IBW) 45.39 10% Adjustment, Tetra (IBW) 45.39 15% Adjustment, Tetra (IBW) 42.87 Nutritional Info/Activity Row Name 03/12/18 1248 Nutritional Information Have you had weight changes? Yes Describe weight changes some weight gain - states that starting glimepiride I want to eat all the time What is your desired body weight? 56.7 kg (125 lb) Have you tried to lose weight before? Yes List programs tried, date, and success RD at [facility] What is your motivation to lose weight? health is declining Food Allergies -- none Supplemental Drinks/Foods/Additives vitamin D, vitamin B6, fibercon, biotin History of eating disorder? No What cultural diet influences are important for you to follow? none noted Do you have difficulty chewing food? Yes Functional Status able to prepare meals;able to purchase food List any food cravings/trigger foods you have fruit, candy List any food aversions none How often during the day do you find yourself snacking? 1x/day Food Behaviors Stress eater How often do you eat out and where? [place], 1-2x/week Do you use Food Assistance programs (WIC, food stamps, food bank)? no Do you need information about Food Assistance programs? no How many times do you drink milk per day? 0 How many times do you eat fruit per day? 2 How many times do you eat vegetables per day? -- 1-2x/day How many times do you drink juice per day? 0 How many times do you eat candy/chocolates per day? 0 How many times do you eat baked goods per day? -- often How many times do you eat desserts per day? -- 1x/week How many times do you eat ice cream per day? 0 How many times do you eat snack foods per day? -- varies How many diet sodas do you drink per day? -- 1-2x/day How many regular sodas do you drink per day? -- occasionally How many times do you eat ethnic food per day? 0 How many times do you drink alcohol per day? 0 How many times do you have caffeine per day? 2 How many servings of artificial sweetner do you have per day? 0 How many meals do you eat each day? 2 How many snacks do you eat each day? 1 What is the biggest challenge you have with your diet? Other (comment) not being able to exercise -back issues What type of support do you currently use to help you with your health issues? Just joined [employer] Enter everything you can remember eating in the last 24 hours (1 day) Breakfast: Breakfast burrito (eggs, jensen, hashbrowns); Snack: 6 triscuits; Lunch: turkmen fries with cheese, nachos, regular coke; Dinner: none; Snack: 1/2 Pepsi, triscuits, 3 pieces of candy Eating Environment Eating environment Family Physical Activity Are you currently involved in an activity/exercise program? No Reasons for Inactivity Limited activity How many minutes do you spend on exercise each day? 0 How would you rank exercise as an important health lifestyle practice? 10 Home Nutrition Report Row Name 03/12/18 1248 Home Nutrition Report Diet No specific Typical Food/Fluid Intake convenience foods, regular soda, fried foods, limited in fruits and vegetables Food Preferences fruit, candy Meal/Snack Patterns 2 meals, 1 snack; skips breakfast or lunch most days Supplemental Drinks/Foods/Additives vitamin D, vitamin B6, fibercon, biotin Vitamin/Mineral/Herbal Supplements see above Estimated/Assessed Needs Row Name 03/12/18 1255 03/12/18 1248 Calculation Measurements Weight Used For Calculations 86.2 kg (190 lb) 1375 x 1.2 = 1650 - 250 = 1400 kcalories/day -- Height -- 157.5 cm (62 ) Estimated/Assessed Needs Additional Documentation Story-St. Nghiaor Equation (Group) -- KCAL/KG 14 Kcal/Kg (kcal) 1206.56 -- 15 Kcal/Kg (kcal) 1292.75 -- 18 Kcal/Kg (kcal) 1551.29 -- 20 Kcal/Kg (kcal) 1723.66 -- 25 Kcal/Kg (kcal) 2154.58 -- 30 Kcal/Kg (kcal) 2585.49 -- 35 Kcal/Kg (kcal) 3016.41 -- 40 Kcal/Kg (kcal) 3447.32 -- 45 Kcal/Kg (kcal) 3878.24 -- 50 Kcal/Kg (kcal) 4309.15 -- Story-St. Jeor Equation RMR (Story-St. Jeor Equation) 1380.08 -- Fluid Requirements Hartland-Segar Method (over 20 kg) 3223.66 -- Evaluation of Prescribed Nutrient/Fluid Intake Row Name 03/12/18 1255 03/12/18 1248 Calculation Measurements Weight Used For Calculations 86.2 kg (190 lb) 1375 x 1.2 = 1650 - 250 = 1400 kcalories/day -- Height -- 157.5 cm (62 ) Problem/Interventions: Problem 1 Row Name 03/12/18 1256 Nutrition Diagnoses Problem 1 Problem 1 Overweight/Obesity Etiology (related to) -- excessive kcalorie intake Signs/Symptoms (evidenced by) BMI BMI 30 - 34.9 Intervention Goal Row Name 03/12/18 1257 Intervention Goal General Provide information regarding MNT for treatment/condition;Disease management/therapy fatty liver disease/weight loss PO Meet estimated needs 1300 kcalorie meal plan given Weight Appropriate weight loss Nutrition Prescription Row Name 03/12/18 1257 Nutrition Prescription PO PO Prescription Begin/change diet Begin/Change Diet to Regular 1300 kcalorie meal plan given Fluid Consistency Thin Common Modifiers Low Fat Education/Evaluation Row Name 03/12/18 1258 Education Education Advised regarding habits/behavior Advised Regarding Habits/Behavior Food prep;Seasoning food;Appropriate beverage;Appropriate portions;Food shopping;Snacks;Eating out;Increased nutrient density;Eating pattern;Label reading;Food choices;Meal planning Monitor/Evaluation Monitor Per protocol;PO intake;Weight Education Follow-up Other (comment) 1 month follow up Electronically signed by: Kandy Laureano RD 03/12/18 1:00 PM documented in this encounter Plan of Treatment Upcoming Encounters Date Type Department Care Team (Late st Contact Info) Description 03/13/2024 2:45 PM EST Office Visit [facility] [address] [place] [address] [place] [address] Pj Ace MD [address] [place] [address] Scheduled Referrals Name Type Priority Associated Diagnoses Order Schedule Ambulatory Referral to Nutrition Services Outpatient Referral Routine NAFLD (nonalcoholic fatty liver disease) Ordered: 02/08/2018 documented as of this encounter Visit Diagnoses Not on filedocumented in this encounter Care Teams Medical Manager Relationship Specialty Start Date End Date Guerline Randall APRN [address] [place] [address] PCP - General Family Medicine 12/19/17 04/11/18 documented as of this encounter
--- OUTSIDE RECORDS SUMMARY | 2024-02-20 09:14 | XMS_ITS | Encounter Summary ---
Author Organization [facility] yste Address [address] [place] [id number] Care Team Providers Care Automotive Airconditioning Mechanic Name Role Phone Unavailable Primary Care Provider Unavailabl e Encounter Details Date Type Department Care Team (Late st Contact Info) Description 10/24/2017 Telephone [facility] INTERNAL MEDICINE [address] [place] [phone] Roc Tracey PA-C [address] [place] [address] Social History Tobacco Use Types Packs/Day Years [...] Telephone Encounter - Ambar Morrow MA - 10/24/2017 8:44 AM EDT Left message to return my call in regards to a request that I got from [facility] that I do not see on her med list. documented in this encounter Plan of Treatment Upcoming Encounters Date Type Department Care Team (Late st Contact Info) Description 03/13/2024 2:45 PM EST Office Visit [facility] CARDIOLOGY [address] [place] [address] [place] [address] Pj Ace MD [address] [facility] E [facility] [address] [place] [address] documented as of this encounter Visit Diagnoses Not on filedocumented in this encounter
--- OUTSIDE RECORDS SUMMARY | 2024-02-20 09:14 | XMS_ITS | Encounter Summary ---
Author Organization [facility] ystem Address [address] [place] [address] Care Team Providers Care Lead Miner Blasting Name Role Phone Guerline [place] APRN Primary Care Provider [phone] Reason for Visit * Reason Comments Urinary Tract Infection Encounter Details Date Type Department Care Team (Late st Contact Info) Description 02/13/2018 12:15 PM EST Office Visit [facility] INTERNAL MEDICINE [address] [place] [address] Kristal Mendoza, VASILE [address] [place] [address] Acute left-sided low back pain without sciatica (Primary Dx) Social History Tobacco Use Types [...] Sign Reading Time Taken Comments Blood Pressure 110/78 02/13/2018 12:09 PM EST Pulse 95 02/13/2018 12:09 PM EST Temperature - - Respiratory Rate - - Oxygen Saturation 96% 02/13/2018 12:09 PM EST Inhaled Oxygen Concentration - - Weight 86.2 kg (190 lb) 02/13/2018 12:09 PM EST Height 157.5 cm (5' 2 ) 02/13/2018 12:09 PM EST Body Mass Index 34.75 02/13/2018 12:09 PM EST documented in this encounter Patient Instructions * Patient Instructions* Kristal Mendoza APRN - 02/13/2018 12:15 PM EST Urine was essentially clear. We will start patient on prednisone for low back discomfort. Drink plenty of fluids. Moist heat to sore areas. Return to the clinic next week for follow-up with Guerline, sooner if not improving. Pt verbalizes understanding and agreement with plan of care. documented in this encounter Progress Notes * Kristal Mendoza APRN - 02/13/2018 12:15 PM EST Subjective Gertrudis Gonzalez is a 62 y.o. female. Chief Complaint Patient presents with ??? Urinary Tract Infection History of Present Illness low back pain, particularly to the left side. Off and on since Jan 14, 2018. Denies trauma. No fever or chills. No abdominal pain. No nausea vomiting or diarrhea. No changein bowel or bladder habits. No hematuria. The following portions of the patient's history were reviewed and updated as appropriate: allergies, current medications, past family history, past medical history, past social history, past surgicalhistory and problem list. Current Outpatient Medications: ??? acetaminophen (TYLENOL) 500 [...] BCISE) 2 MG/0.85ML auto-injector injection, Inject 0.85 mL under the skin into the appropriate area as directed 1 (One) Time Per Week., Disp: 4 pen, Rfl: 2 ??? furosemide (LASIX) 20 MG tablet, Take 20 mg by mouth 2 (Two) Times a Day., Disp: , Rfl: ??? glimepiride (AMARYL) 2 MG tablet, Take 1 tablet by mouth Every Morning Before Breakfast., Disp:90 tablet, Rfl: 1 ??? Liniments (SALONPAS) pads, [...] before eating., Disp: 30 capsule, Rfl:2 ??? rOPINIRole (REQUIP) 0.25 MG tablet, Take [...] prn, Disp: 180 tablet, Rfl: 2 ??? predniSONE (DELTASONE) 20 MG tablet, Take 1 tablet by mouth 2 (Two) Times a Day., Disp: 10 tablet, Rfl: 0 Review of Systems Consitutional, HEENT, Respiratory, CV, GI, , Skin, Musculoskeletal, Neuro-mental, Endocrinological, Hematological were reviewed. Positives were discussed in the HPI, otherwise ROSwas negative BP 110/78 Pulse 95 Ht 157.5 cm (62 ) Wt 86.2 kg (190 lb) LMP (LMP Unknown) SpO2 96% BMI34.75 kg/m?? Objective Allergies Allergen Reactions ??? Iain Inhibitors Cough ??? Amlodipine ??? Beta Adrenergic Blockers ??? Cyclobenzaprine ??? Hydrochlorothiazide ??? Hyzaar [Losartan Potassium-Hctz] ??? Latex ??? Losartan ??? Metformin ??? Penicillins ??? Pioglitazone ??? Spironolactone Physical Exam Constitutional: She is oriented to person, place, and time. She appears well- developed and well-nourished. No distress. Eyes: Right eye exhibits no discharge. Left eye exhibits no discharge. Neck: Neck supple. Cardiovascular: Normal rate, regular rhythm, normal heart sounds and intact distal pulses. Exam reveals no gallop and no friction rub. No murmur heard. Pulmonary/Chest: Effort normal and breath sounds normal. Abdominal: Soft. Bowel sounds are normal. There is no tenderness. Musculoskeletal: She is tender to the lower back especially the left SI area. Neurological: She is alert and oriented to person, place, and time. Skin: Skin is warm and dry. Capillary refill takes less than 2 seconds. Nursing note and vitals reviewed. Procedures LABS Results for orders placed or performed in visit on 02/13/18 POCT urinalysis dipstick, automated Result Value Ref Range Color Yellow Yellow, Straw, Dark Yellow, Kenia Clarity, UA Clear Clear Specific Tebbetts 1.000 (A) 1.005 - 1.030 pH, Urine 7.0 5.0 - 8.0 Leukocytes Negative Negative Nitrite, UA Negative Negative Protein, POC Negative Negative mg/dL Glucose, UA Negative Negative, 1000 mg/dL (3+) mg/dL Ketones, UA Negative Negative Urobilinogen, UA Normal Normal Bilirubin Negative Negative Blood, UA Negative Negative Assessment/Plan Gertrudis was seen today for urinary tract infection. Diagnoses and all orders for this visit: Acute left-sided low back pain without sciatica - POCT urinalysis dipstick, automated - predniSONE (DELTASONE) 20 MG tablet; Take 1 tablet by mouth 2 (Two) Times a Day. Patient Instructions Urine was essentially clear. We will start patient on prednisone for low back discomfort. Drink plenty of fluids. Moist heat to sore areas. Return to the clinic next week for follow-up with Guerline, sooner if not improving. Pt verbalizes understanding and agreement with plan of care. EMR Dragon/lift builder whole disclaimer: Please note that portions of this note were completed with a voice recognition program. Electronic lift builder whole of the voice recognition program may permit erroneous words or phrases to be inadvertently transcribed. Although I have reviewed the note for such errors, some may still exist in this documentation Kristal Mendoza APRN documented in this encounter Plan of Treatment Upcoming Encounters Date Type Department Care Team (Late st Contact Info) Description 03/13/2024 2:45 PM EST Office Visit [facility] CARDIOLOG[facility] [address] [place] [address] [place] [address] Pj Ace MD [address] [facility] [address] [address] documented as of this encounter Procedures Procedure Name Priority Date/Time Associated Diagnosis Comments POCT URINALYSIS DIPSTICK, AUTOMATED Routine 02/13/2018 12:18 PM EST Acute left-sided low back pain without sciatica documented in this encounter Results * (ABNORMAL) POCT urinalysis dipstick, automated (02/13/2018 12:18 PM EST) Color Yellow Yellow, Straw, Dark Yellow, Kenia [facility] Clarity, UA Clear Clear [facility] Specific Tebbetts 1.000(A) 1.005 - 1.030 [facility] pH, Urine 7.0 5.0 - 8.0 [facility] Leukocytes Negative Negative [facility] Nitrite, UA Negative Negative [facility] Protein, POC Negative Negative mg/dL [facility] Glucose, UA Negative Negative, 1000 mg/dL (3+) mg/dL [facility] Ketones, UA Negative Negative [facility] Urobilinogen, UA Normal Normal [facility] Bilirubin Negative Negative [facility] Blood, UA Negative Negative [facility] Urine 02/13/2018 12:1 8 PM EST Kristal Mendoza MECHANICAL CAD DRAFTER POINT OF CARE TEST ORDERABLES Final Result [facility]
[address] [place] [address], documented in this encounter Visit Diagnoses Diagnosis Acute left-sided low back pain without sciatica- Primary documented in this encounter Care Teams Lead Miner Blasting Relationship Specialty Start Date End Date Guerline [place] APRN [address] [facility] [[email or web address] [address] [place] [address] PCP - General Family Medicine 12/19/17 04/11/18 documented as of this encounter
--- OUTSIDE RECORDS SUMMARY | 2024-02-20 09:14 | XMS_ITS | Encounter Summary ---
Author Organization [facility] Address [address] [place] [address] Care Team Providers Care Head Insulation Board Saw Operator Name Role Phone Madelaine Norman APRN Primary Care Provider [phone] Reason for Visit * Reason Comments Diabetes Consult for Madelaine kc * Consultation (Routine) - Closed Specialty Diagnoses / Procedures Referred By Yodit salinas Referred To Contact Endocrinology Diagnoses Diabetes mellitus type 2 in obese Madelaine Norman APRN [address] [address] Phone: tel: fax: [facility] [address] [address] Phone: tel: fax: Referral ID Status Reason Start Date Expiration Date V isits Requested Visits Authorized [id number] Closed Specialty Services Required 05/09/2017 05/09/2018 1 1 Encounter Details Date Type Department Care Team (Late st Contact Info) Description 05/22/2017 3:00 PM EST Office Visit [facility] [address] [facility] [address] [address] Roc Tracey PA-C [address] [place] [id number] Uncontrolled type 2 diabetes mellitus with hyperglycemia, [...] Sign Reading Time Taken Comments Blood Pressure 150/92 05/22/2017 2:38 PM EST Pulse 86 05/22/2017 2:38 PM EST Temperature - - Respiratory Rate - - Oxygen Saturation 98% 05/22/2017 2:38 PM EST Inhaled Oxygen Concentration - - Weight 84.1 kg (185 lb 6.4 oz) 05/22/2017 2:38 P M EST Height 157.5 cm (5' 2 ) 05/22/2017 2:38 PM EST Body Mass Index 33.91 05/22/2017 2:38 PM EST documented in this encounter Patient Instructions * Patient Instructions* Roc Tracey PA-C - 05/22/2017 3:00 PM EST Diabetes Mellitus and Food It is important for you to manage your blood sugar (glucose) level. Your blood glucose level can begreatly affected by what you eat. Eating healthier foods in the appropriate amounts throughout the day at about the same time each day will help you control your blood glucose level. It can also helpslow or prevent worsening of your diabetes mellitus. Healthy eating may even help you improve the level of your blood pressure and reach or maintain a healthy weight. General recommendations for healthful eating and cooking habits include: ?? Eating meals and snacks regularly. Avoid going long periods of time without eating to lose weight. ?? Eating a diet that consists mainly of plant-based foods, such as fruits, vegetables, nuts, legumes, and whole grains. ?? Using low-heat cooking methods, such as baking, instead of high-heat cooking methods, such as deep frying. Work with your dietitian to make sure you understand how to use the Nutrition Facts information on food labels. How can food affect me? Carbohydrates Carbohydrates affect your blood glucose level more than any other type of food. Your dietitian willhelp you determine how many carbohydrates to eat at each meal and teach you how to count carbohydrates. Counting carbohydrates is important to keep your blood glucose at a healthy level, especially if you are using insulin or taking certain medicines for diabetes mellitus. Alcohol Alcohol can cause sudden decreases in blood glucose (hypoglycemia), especially if you use insulin or take certain medicines for diabetes mellitus. Hypoglycemia can be a life-threatening condition. Symptoms of hypoglycemia (sleepiness, dizziness, and disorientation) are similar to symptoms of havingtoo much alcohol. If your health care provider has given you approval to drink alcohol, do so in moderation and use the following guidelines: ?? Women should not have more than one drink per day, and men should not have more than two drinks per day. One drink is equal to: ?? 12 oz of beer. ?? 5 oz of wine. ?? 1?? oz of hard liquor. ?? Do not drink on an empty stomach. ?? Keep yourself hydrated. Have water, diet soda, or unsweetened iced tea. ?? Regular soda, juice, and other mixers might contain a lot of carbohydrates and should be counted. What foods are not recommended? As you make food choices, it is important to remember that all foods are not the same. Some foods have fewer nutrients per serving than other foods, even though they might have the same number of calories or carbohydrates. It is difficult to get your body what it needs when you eat foods with fewernutrients. Examples of foods that you should avoid that are high in calories and carbohydrates but low in nutrients include: ?? Trans fats (most processed foods list trans fats on the Nutrition Facts label). ?? Regular soda. ?? Juice. ?? Candy. ?? Sweets, such as cake, pie, doughnuts, and cookies. ?? Fried foods. What foods can I eat? Eat nutrient-rich foods, which will nourish your body and keep you healthy. The food you should eatalso will depend on several factors, including: ?? The calories you need. ?? The medicines you take. ?? Your weight. ?? Your blood glucose level. ?? Your blood pressure level. ?? Your cholesterol level. You should eat a variety of foods, including: ?? Protein. ?? Lean cuts of meat. ?? Proteins low in saturated fats, such as fish, egg whites, and beans. Avoid processed meats. ?? Fruits and vegetables. ?? Fruits and vegetables that may help control blood glucose levels, such as apples, mangoes, and yams. ?? Dairy products. ?? Choose fat-free or low-fat dairy products, such as milk, yogurt, and cheese. ?? Grains, bread, pasta, and rice. ?? Choose whole grain products, such as multigrain bread, whole oats, and brown rice. These foods may help control blood pressure. ?? Fats. ?? Foods containing healthful fats, such as nuts, avocado, olive oil, canola oil, and fish. Does everyone with diabetes mellitus have the same meal plan? Because every person with diabetes mellitus is different, there is not one meal plan that works foreveryone. It is very important that you meet with a dietitian who will help you create a meal plan that is just right for you. This information is not intended to replace advice given to you by your health care provider. Make sure you discuss any questions you have with your health care provider. Document Released: 12/14/2005 Document Revised: 08/24/2016 Document Reviewed: 02/13/2014 [employer] Interactive Patient Education ?? 2017 [employer] documented in this encounter Progress Notes * Jose Delgado MA - 05/22/2017 4:32 PM ESTAddended by: JOSE DELGADO on: 05/22/2017 04:32 PM Modules accepted: Orders * Roc Tracey PA-C - 05/22/2017 3:00 PM EST Chief Complaint Establish care for Diabetes Mellitus. JONA Gonzalez is a 61 y.o. female with chronic back pain and HTN- on multiple antihypertensives followed by cardiology in [place], who is here today for evaluation of Diabetes Mellitus type 2. Patient was referred by Madelaine Norman APRN. The initial diagnosis of diabetes was made approximately 2015. Today, BG 209 C/o fatigue, hair loss and thinning, feels like eyes protruding out more than usual. Shakiness/jittery if skips a meal. Palpitations, worse lately. Will need a steroid shot soon. Labs reviewed: 05/09/17- A1c 8.9; 12/2016- GFR 102, A1c 7.9; 05/2016- TSH 2.5, LDL 200, TG 232 Diabetic complications: none Eye exam current (within one year): yes- no retinopathy Foot care and dental care: discussed Current diabetic medications include: Januvia 100mg qd Acarbose 100mg TID- causing a lot of flatulence Farxiga 10mg qd ACEI/ARB: losartan-hctz Statin: intolerant to statins Past medications: metformin (???caused blurred vision, went away when stopped taking metformin), invokana (insurance didn't cover but thinks this controlled glucose better) Diabetic Monitoring - started checking sugar last 3-4 days once a day Glucose is averaging- morning >200, mid 250s during the day Hypoglycemia- no Home blood sugar records: did not bring Nutrition: Current diet: improving diet last 2 [...] ??? Vitamin D deficiency Medications Current Outpatient Prescriptions: ??? acarbose (PRECOSE) 100 MG tablet, Take 1 tablet by mouth 3 (Three) Times a Day With Meals., Disp: 90 tablet, Rfl: 2 ??? acetaminophen (TYLENOL) 500 MG tablet, Take 1 tablet by mouth 2 (Two) Times a Day. Every 4 to 6hours as needed, Disp: , Rfl: ??? albuterol (PROVENTIL HFA;VENTOLIN HFA) 108 (90 Base) MCG/ACT inhaler, Inhale 2 puffs Every 6 (Six) Hours As Needed for Wheezing., Disp: 1 inhaler, Rfl: 0 ??? baclofen (LIORESAL) 10 MG tablet, TAKE INSTRUCTED BY YOUR PRESCRIBER, Disp: 270 tablet, Rfl:3 ??? desvenlafaxine (PRISTIQ) 50 MG 24 hr tablet, Take 1 tablet by mouth Daily., Disp: , Rfl: ??? diclofenac (VOLTAREN) 50 MG EC tablet, Take 1 tablet two times a day when necessary for mild tomoderate acute breakthrough pain. Do not to take any other NSAIDs, Disp: 60 tablet, Rfl: 3 ??? estradiol (ESTRACE VAGINAL) 0.1 MG/GM vaginal cream, Insert 2 g into the vagina 1 (One) Time Per Week., Disp: 42.5 g, Rfl: 5 ??? hydrALAZINE (APRESOLINE) 25 MG tablet, Take 1 tablet by mouth 3 (Three) Times a Day., Disp: 90 tablet, Rfl: 3 ??? lidocaine (LIDODERM) 5 %, Apply 1 patch topically. To the affected area and leave in place for 12 hours, then remove and leave off for 12 hours, Disp: , Rfl: ??? Liniments (SALONPAS) pads, Apply topically. prn, Disp: , Rfl: ??? losartan-hydrochlorothiazide (HYZAAR) 50-12.5 MG per tablet, , Disp: , Rfl: ??? NIFEdipine CC (ADALAT CC) 90 MG 24 hr tablet, , Disp: , Rfl: ??? NIFEdipine XL (PROCARDIA XL) 30 MG 24 hr tablet, Take 60 mg by mouth Daily., Disp: , Rfl: ??? promethazine-dextromethorphan (PROMETHAZINE-DM) 6.25-15 MG/5ML syrup, Take 5 mL by mouth 4 (Four) Times a Day As Needed for Cough., Disp: 118 mL, Rfl: 0 ??? rOPINIRole (REQUIP) 0.25 MG tablet, Take 1 tablet by mouth Every Night. Take 1 hour before bedtime. (Patient taking differently: Take 0.5 mg by mouth Every Night. Take 1 hour before bedtime.), Disp: 30 tablet, Rfl: 3 ??? SITagliptin (JANUVIA) 100 MG tablet, Take 1 tablet by mouth Daily., Disp: 90 tablet, Rfl: 3 ??? topiramate (TOPAMAX) 50 MG tablet, TAKE ONE TABLET BY MOUTH TWICE DAILY, Disp: 180 tablet, Rfl:0 ??? traMADol (ULTRAM) 50 MG tablet, A tablet PO TID PRN severe breakthrough pain, Disp: 270 tablet,Rfl: 0 ??? traZODone (DESYREL) 50 MG tablet, TAKE 1 TO 2 TABLETS AT BEDTIME NEEDED, Disp: 180 tablet, Rfl: 2 ??? Canagliflozin (INVOKANA) 300 MG tablet, Take 300 mg by mouth Daily., Disp: 30 tablet, Rfl: 3 ??? exenatide er (BYLYNNE HAWK) 2 MG/0.85ML auto-injector injection, Inject 0.85 mL under the skin 1 (One) Time Per Week., Disp: 4 pen, Rfl: 3 Review of Systems Review of Systems Constitutional: [...] leg swelling. Gastrointestinal: Negative for abdominal pain, blood in [...] patient is not nervous/anxious. Physical Exam BP 150/92 Pulse 86 Ht 157.5 cm (62 ) Wt 84.1 kg (185 lb 6.4 oz) LMP (LMP Unknown) SpO2 98% BMI 33.91 kg/m2Body mass index is 33.91 kg/(m^2). Physical Exam Constitutional: She is oriented to [...] Gertrudis had a diabetic foot exam performed (no ulcers or calluses) today. During the foot exam she had a monofilament test performed (intact sensation to monofilament bilaterally). Vascular Status - Her exam exhibits right foot vasculature normal. Her exam exhibits no right foot edema. Her exam exhibits left foot vasculature normal. Her exam exhibits no left foot edema. Skin Integrity - Her right foot skin is intact. Gertrudis 's left foot skin is intact. . Lymphadenopathy: She has no cervical adenopathy. Neurological: She is alert and oriented to person, place, and time. Skin: Skin is warm, dry and intact. No rash noted. She is not diaphoretic. No erythema. Psychiatric: She has a normal mood and affect. Her speech is normal and behavior is normal. Thoughtcontent normal. Labs and Imaging Lab Results Component Value Date HGBA1C 8.9 05/09/2017 HGBA1C 7.9 01/04/2017 HGBA1C 7.9 08/09/2016 Office Visit on 05/09/2017 Component Date Value Ref Range Status ??? Hemoglobin A1C 05/09/2017 8.9 % Final ??? Glucose 05/09/2017 174* 70 - 130 mg/dL Final Lab on 05/07/2017 Component Date Value Ref Range Status ??? Amphetamine, Urine Qual 05/07/2017 Negative Nqsapc=9727 ng/mL Final ??? Barbiturates Screen, Urine 05/07/2017 Negative Fntuju=789 ng/mL Final ??? Benzodiazepine Screen, Urine 05/07/2017 Negative Ydzafz=377 ng/mL Final ??? THC Screen, Urine 05/07/2017 Negative Cutoff=20 ng/mL Final ??? Cocaine Screen, Urine 05/07/2017 Negative Wofdry=540 ng/mL Final ??? Opiate Screen, Urine 05/07/2017 Negative Hjpxsl=352 ng/mL Final Opiate test includes Codeine, Morphine, Hydromorphone, Hydrocodone. ??? Oxycodone/Oxymorphone, Urine 05/07/2017 Negative Fyqejz=450 ng/mL Final Test includes Oxycodone and Oxymorphone ??? Phencyclidine (PCP), Urine 05/07/2017 Negative Cutoff=25 ng/mL Final ??? Methadone Screen, Urine 05/07/2017 Negative Ctezst=477 ng/mL Final ??? Propoxyphene Screen 05/07/2017 Negative Omfawl=750 ng/mL Final ??? Meperidine, Urine 05/07/2017 Negative Ljmpzo=814 ng/mL Final This test was developed and its performance characteristics determined by [facility]. It has not been cleared or approved by the Food and Drug Administration. ??? Fentanyl, Urine 05/07/2017 Negative Gjklfw=6463 pg/mL Final Test includes Fentanyl and Norfentanyl This test was developed and its performance characteristics determined by [facility]. It has not been cleared or approved by the Food and Drug Administration. ??? Tramadol Screen, Urine 05/07/2017 Positive* Geydpn=130 Final Tramadol (GC/MS) >3000 ng/mL Tcpqiw=593 01 Tramadol detected; this finding can be consistent with use of medications that include Ultram, Topalgic, Tradol, Zydol, or generic formulations. Drugs listed are healthcare sales representative of common sources of the compound detected and are not intended to include all possible sources. ??? Creatinine, Urine 05/07/2017 85.0 20.0 - 300.0 mg/dL Final ??? Specific [place], UA 05/07/2017 1.012 Final ??? pH, UA 05/07/2017 5.4 4.5 - 8.9 Final ??? Please note 05/07/2017 Comment Final Drug-test results should be interpreted in the context of clinical information. Patient metabolic variables, specific drug chemistry, and specimen characteristics can affect test outcome. Technical consultation is available if a test result is inconsistent with an expected outcome. ([email or web address] or call toll-free [phone]) Drug brands, if listed herein, are trademarks of their respective owners. No images are attached to the encounter [...] hyperglycemia, without long-term current use of insulin - Microalbumin / Creatinine Urine Ratio - Urine, Clean Catch - TSH - T4, Free - Canagliflozin (INVOKANA) 300 MG tablet; Take 300 mg by mouth Daily. - exenatide er (BYDUREON BCISE) 2 MG/0.85ML auto-injector injection; Inject 0.85 mL under the skin 1 (One) Time Per Week. Diabetes Mellitus 2 is under inadequate control. -A1c 8.9, average sugar 210 -dc acarbose secondary to flatulence -change farxiga to invokana- feels like this helped her sugars better. Insurance may improve since she has now tried farxiga. -start bydureon bcise 2mg sc weekly. No hx of pancreatitis. No personal or fam hx of thyroid ca or MEN2. -continue emily goetz -intolerant to metformin -intolerant to statins -bring meter to f/u- check sugar fasting and 2h pp -she was instructed on how to use bydureon. She administered her first dose during visit. -provided coupon for invokana/bydureon and samples of invokana. 1. Diet: 3-4 carb servings per meal [...] <180 2 hr postprandial 4. Microalbumin due 5. 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 , annual eye examinations at Ophthalmology discussed, dental hygiene discussed and foot care reviewed., home glucose monitoring emphasized, all medications, side effects and compliance discussed carefully and Hypoglycemia management and prevention reviewed. Reviewed ???ABCs??? of diabetes management (respective goals in parentheses): A1C (<7), blood pressure (<130/80), and cholesterol (LDL <100, if CVD <70). Patient Instructions Diabetes Mellitus and Food It is important for you to manage your blood sugar (glucose) level. Your blood glucose level can begreatly affected by what you eat. Eating healthier foods in the appropriate amounts throughout the day at about the same time each day will help you control your blood glucose level. It can also helpslow or prevent worsening of your diabetes mellitus. Healthy eating may even help you improve the level of your blood pressure and reach or maintain a healthy weight. General recommendations for healthful eating and cooking habits include: ?? Eating meals and snacks regularly. Avoid going long periods of time without eating to lose weight. ?? Eating a diet that consists mainly of plant-based foods, such as fruits, vegetables, nuts, legumes, and whole grains. ?? Using low-heat cooking methods, such as baking, instead of high-heat cooking methods, such as deep frying. Work with your dietitian to make sure you understand how to use the Nutrition Facts information on food labels. How can food affect me? Carbohydrates Carbohydrates affect your blood glucose level more than any other type of food. Your dietitian willhelp you determine how many carbohydrates to eat at each meal and teach you how to count carbohydrates. Counting carbohydrates is important to keep your blood glucose at a healthy level, especially if you are using insulin or taking certain medicines for diabetes mellitus. Alcohol Alcohol can cause sudden decreases in blood glucose (hypoglycemia), especially if you use insulin or take certain medicines for diabetes mellitus. Hypoglycemia can be a life-threatening condition. Symptoms of hypoglycemia (sleepiness, dizziness, and disorientation) are similar to symptoms of havingtoo much alcohol. If your health care provider has given you approval to drink alcohol, do so in moderation and use the following guidelines: ?? Women should not have more than one drink per day, and men should not have more than two drinks per day. One drink is equal to: ?? 12 oz of beer. ?? 5 oz of wine. ?? 1?? oz of hard liquor. ?? Do not drink on an empty stomach. ?? Keep yourself hydrated. Have water, diet soda, or unsweetened iced tea. ?? Regular soda, juice, and other mixers might contain a lot of carbohydrates and should be counted. What foods are not recommended? As you make food choices, it is important to remember that all foods are not the same. Some foods have fewer nutrients per serving than other foods, even though they might have the same number of calories or carbohydrates. It is difficult to get your body what it needs when you eat foods with fewernutrients. Examples of foods that you should avoid that are high in calories and carbohydrates but low in nutrients include: ?? Trans fats (most processed foods list trans fats on the Nutrition Facts label). ?? Regular soda. ?? Juice. ?? Candy. ?? Sweets, such as cake, pie, doughnuts, and cookies. ?? Fried foods. What foods can I eat? Eat nutrient-rich foods, which will nourish your body and keep you healthy. The food you should eatalso will depend on several factors, including: ?? The calories you need. ?? The medicines you take. ?? Your weight. ?? Your blood glucose level. ?? Your blood pressure level. ?? Your cholesterol level. You should eat a variety of foods, including: ?? Protein. ?? Lean cuts of meat. ?? Proteins low in saturated fats, such as fish, egg whites, and beans. Avoid processed meats. ?? Fruits and vegetables. ?? Fruits and vegetables that may help control blood glucose levels, such as apples, mangoes, and yams. ?? Dairy products. ?? Choose fat-free or low-fat dairy products, such as milk, yogurt, and cheese. ?? Grains, bread, pasta, and rice. ?? Choose whole grain products, such as multigrain bread, whole oats, and brown rice. These foods may help control blood pressure. ?? Fats. ?? Foods containing healthful fats, such as nuts, avocado, olive oil, canola oil, and fish. Does everyone with diabetes mellitus have the same meal plan? Because every person with diabetes mellitus is different, there is not one meal plan that works foreveryone. It is very important that you meet with a dietitian who will help you create a meal plan that is just right for you. This information is not intended to replace advice given to you by your health care provider. Make sure you discuss any questions you have with your health care provider. Document Released: 12/14/2005 Document Revised: 08/24/2016 Document Reviewed: 02/13/2014 [employer] Interactive Patient Education ?? 2017 [employer] Follow up: Return in about 3 months (around 08/19/2017). Discussed the nature of the disease including, [...] screenings, and immunizations on an annual basis. 30 min of 45 min [id number] visit time spent for coordination of care and counselling regarding identified problems as outlined in the objective, assessment and discussion portions of the documentation. Roc Traecy PA-C documented in this encounter Plan of Treatment Upcoming Encounters Date Type Department Care Team (Late st Contact Info) Description 03/13/2024 2:45 PM EST Office Visit [facility] [address] [place] [address] [place] [address] Pj Ace MD [address] [facility] [address] [place], [place] [id number] documented as of this encounter Procedures Procedure Name Priority Date/Time Associated Diagnosis Comments POCT GLUCOSE FINGERSTICK Routine 05/22/2017 4:31 PM EST Uncontrolled type 2 diabetes mellitus with hyperglycemia, without long-term current use of insulin MICROALBUMIN / CREATININE URINE RATIO Routine 05/22/2017 3:37 PM EST Uncontrolled type 2 diabetes mellitus with hyperglycemia, without long-term current use of insulin TSH Routine 05/22/2017 3:37 PM EST Uncontrolled type 2 diabetes mellitus with hyperglycemia, without long-term current use of insulin T4, FREE Routine 05/22/2017 3:37 PM EST Uncontrolled type 2 diabetes mellitus with hyperglycemia, without long-term current use of insulin documented in this encounter Results * (ABNORMAL) POC Glucose Fingerstick (05/22/2017 4:31 PM EST) [facility] Glucose 209(A) 70 - 130 mg/dL [facility] Blood 05/22/2017 4:31 PM EST us Roc Tracey PA-C POINT OF CARE TEST ORDERAB LES Final Result [facility]
[address] [place] [address], [place] [phone] * T4, Free (05/22/2017 3:37 PM EST) [facility] Free T4 1.30 0.89 - 1.76 ng/dL 05/22/2017 7:22 PM EST [facility] Blood Venipuncture / Unknown 05/22/2017 3:37 PM EST 05/22/2017 3:37 PM EST Vedrleland Knezevic PA-C LAB BLOOD ORDERABLES Final Result [facility]
[address] [place] [address], * TSH (05/22/2017 3:37 PM EST) TSH 1.465 0.350 - 5.350 mIU/mL 05/22/2017 7:22 PM EST [facility] Blood Venipuncture / Unknown 05/22/2017 3:37 PM EST 05/22/2017 3:37 PM EST Vedrleland Knezevic PA-C LAB BLOOD ORDERABLES Final Result Performing Organization Address [facility] Co de Phone Number [facility]
[address] [place] [address], * Microalbumin / Creatinine Urine Ratio - Urine, Clean Catch (05/22/2017 3:37 PM EST) Creatinine, Urine 153.7 Not Estab. mg/dL 05/24/2017 10:14 AM EST [facility] Microalbumin, Urine 8.0 Not Estab. ug/mL 05/24/2017 10:14 AM EST [facility] Microalbumin/Cr eatinine Ratio 5.2 0.0 - 30.0 05/24/2017 10:14 AM EST [facility] Urine Urine specimen collection, clean catch / Unknown Collection / Unknown 05/22/2017 3:37 PM EST 05/22/2017 3:37 PM EST Narrative [facility] - 05/24/2017 10:14 AM EST Performed at: ??[address] [facility] ??[id number] Intervention Teacher: Malik Hall PhD, Phone: ??[phone] Vedrana Knezevic PA-C URINE ORDERABLES Final Res ult [facility] [address] [place] [address], documented in this encounter Visit Diagnoses Diagnosis Uncontrolled type 2 diabetes mellitus with hyperglycemia, without long-term current use of insulin- Primary documented in this encounter Care Teams Head Insulation Board Saw Operator Relationship Specialty Start Date End Date Madelaine Norman, ELECTRIC METER INSTALLER HELPER [address] [place] [address] PCP - General Internal Medicine 12/13/16 09/07/17 documented as of this encounter
--- OUTSIDE RECORDS SUMMARY | 2024-02-20 09:14 | XMS_ITS | Encounter Summary ---
[facility] Address [address] [place] [address] Care Team Providers Care Table Cover Folder Name Role Phone Unavailable Primary Care Provider Unavailabl e Reason for Visit * Reason Comments Follow-up DM 2 Encounter Details Date Type Department Care Team (Late st Contact Info) Description 12/14/2017 2:00 PM EDT Office Visit [facility] ENDOCRINOLOGY [address] [facility] [address] [place] [address] Roc Tracey PA-C [address] [facility] [address] [place] [address] Uncontrolled type 2 diabetes mellitus with hyperglycemia, without long-term current use of insulin (Primary Dx); Mixed hyperlipidemia; Left upper quadrant pain Social History Tobacco Use Types Packs/Day [...] Reading Time Taken Comments Blood Pressure 132/72 12/14/2017 1:55 PM EDT Pulse 80 12/14/2017 1:55 PM EDT Temperature - - Respiratory Rate - - Oxygen Saturation 97% 12/14/2017 1:55 PM EDT Inhaled Oxygen Concentration - - Weight 86.7 kg (191 lb 1 oz) 12/14/2017 1:55 PM EDT Height - - Body Mass Index 34.95 09/12/2017 12:27 PM EDT documented in this encounter Progress Notes * Roc Tracey PA-C - 12/14/2017 2:00 PM EDT Chief Complaint F/u for Diabetes Mellitus. HPI Gertrudis Gonzalez is a 61 y.o. female with chronic back pain and HTN- on multiple antihypertensives followed by cardiology in [place], who is here today for f/u of Diabetes Mellitus type 2. The initial diagnosis of diabetes was made approximately 2015. C/o LUQ abdominal pain for 2-3 weeks, gnawing pain, constant, not affected by food, associated withsome intermittent nausea. No vomiting. The pain reminds her of when she took a lot of ibuprofen in the past, although not taking any now. No melena or hematochezia. A1C- 7.7 (12/14/17), 6.7 (09/12/17), 8.9 (05/2017) Labs reviewed: 09/12/17- GFR 73, LDL 206, TG 288 05/22/17- TSH 1.465 Diabetic complications: none Eye exam current (within one year): yes- no retinopathy Foot care and dental care: discussed Current diabetic medications include: Bydureon 2mg sc weekly ACEI/ARB: losartan-hctz Statin: intolerant to statins, Repatha was not covered by insurance. Past medications: metformin (???caused blurred vision, went away when stopped taking metformin), invokana (insurance didn't cover but thinks this controlled glucose better) Diabetic Monitoring - no meter or log Nutrition: Current diet: improving diet last 2 [...] D deficiency Medications Current Outpatient Prescriptions: ??? acetaminophen (TYLENOL) 500 MG tablet, Take [...] ??? diclofenac (VOLTAREN) 50 MG EC tablet, TAKE 1 TABLET TWICE A DAY WHEN NECESSARY FOR MILD TO MODERATE ACUTE BREAKTHROUGH PAIN, DO NOT TAKE ANY OTHER NSAIDS, Disp: 60 tablet, Rfl: 3 ??? estradiol (ESTRACE VAGINAL) 0.1 MG/GM vaginal cream, Insert 2 g into the vagina 1 (One) Time Per Week., Disp: 42.5 g, Rfl: 5 ??? exenatide er (BYDUREON BCISE) 2 MG/0.85ML auto-injector injection, Inject 0.85 mL under the skin into the appropriate area as directed 1 (One) Time Per Week., Disp: 4 pen, Rfl: 2 ??? hydrochlorothiazide (HYDRODIURIL) 25 MG tablet, 1/2 tablet daily as needed, Disp: 30 tablet, Rfl: 1 ??? lidocaine (LIDODERM) 5 %, Apply 1 patch topically. To the affected area and leave in place for 12 hours, then remove and leave off for 12 hours, Disp: , Rfl: ??? Liniments (SALONPAS) pads, Apply topically. prn, Disp: , Rfl: ??? NIFEdipine CC (ADALAT CC) 90 MG 24 hr tablet, , Disp: , Rfl: ??? rOPINIRole (REQUIP) 0.25 MG tablet, Take [...] NEEDED, Disp: 180 tablet, Rfl: 2 ??? acarbose (PRECOSE) 100 MG tablet, Take 1 tablet by mouth 3 (Three) Times a Day With Meals., Disp: 90 tablet, Rfl: 2 ??? Alirocumab (PRALUENT) 75 MG/ML solution pen-injector, Inject 75 mg under the skin into the appropriate area as directed Every 14 (Fourteen) Days., Disp: 6 pen, Rfl: 1 ??? glimepiride (AMARYL) 2 MG tablet, Take 1 tablet by mouth Every Morning Before Breakfast., Disp:90 tablet, Rfl: 1 ??? NIFEdipine XL (PROCARDIA XL) 30 MG 24 hr tablet, Take 60 mg by mouth Daily., Disp: , Rfl: Review of Systems Review [...] patient is not nervous/anxious. Physical Exam BP 132/72 Pulse 80 Wt 86.7 kg (191 lb 1 oz) LMP (LMP Unknown) SpO2 97% BMI 34.95 kg/m?? Body mass index is 34.95 kg/m??. Physical Exam Constitutional: She is oriented [...] Imaging Lab Results Component Value Date HGBA1C 7.7 12/14/2017 HGBA1C 8.9 05/09/2017 HGBA1C 7.9 01/04/2017 Office Visit on 12/14/2017 Component Date Value Ref Range Status ??? Glucose 12/14/2017 281* 70 - 130 mg/dL Final ??? Hemoglobin A1C 12/14/2017 7.7 % Final No images are attached to [...] hyperglycemia, without long-term current use of insulin ([facility]) - POC Glucose Fingerstick - POC Glycosylated Hemoglobin (Hb A1C) - glimepiride (AMARYL) 2 MG tablet; Take 1 tablet by mouth Every Morning Before Breakfast. Mixed hyperlipidemia - Alirocumab (PRALUENT) 75 MG/ML solution pen-injector; Inject 75 mg under the skin into the appropriate area as directed Every 14 (Fourteen) Days. - Lipid panel Left upper quadrant pain - Amylase - Lipase Diabetes Mellitus 2 is under good control. -A1c 7.7, up from 6.7 08/2017 -continue bydureon bcise 2mg sc weekly. -add back glimepiride at lower dose- 2mg ac biggest meal. Discussed risk of hypoglycemia if not taken before meal. -intolerant to metformin -intolerant to statins- will see if praluent covered -bring meter to f/u- check sugar fasting and 2h pp 1. Diet: 3-4 carb servings per meal [...] 05/2018 5. Education performed during this visit: nursing home diabetic complications discussed. , annual eye examinations at Ophthalmology discussed, dental hygiene discussed and foot care reviewed., home glucose monitoring emphasized, all medications, side effects and compliance discussed carefully and Hypoglycemia management and prevention reviewed. Reviewed ???ABCs??? of diabetes management (respective goals in parentheses): A1C (<7), blood pressure (<130/80), and cholesterol (LDL <100, if CVD <70). Abdominal pain -will check amylase and lipase since she is on bydureon, but unlikely to be the culprit -she sees pcp this afternoon and will discuss There are no Patient Instructions on file for this visit. Follow up: Return in about 3 months (around 03/15/2018). Discussed the nature of the disease including, [...] annual basis. 20 min of 30 min [id number] visit time spent for coordination of care and counselling regarding identified problems as outlined in the objective, assessment and discussion portions of the documentation. Roc Tracey PA-C documented in this encounter Plan of Treatment Upcoming Encounters Date Type Department Care Team (Late st Contact Info) Description 03/13/2024 2:45 PM EST Office Visit [facility] CARDIOLOGY [address] [place] [address] [place] [address] Pj Ace MD [address] [facility] [address] [place] [address] documented as of this encounter Procedures Procedure Name Priority Date/Time Associated Diagnosis Comments LIPASE Routine 12/14/2017 5:40 PM EDT Left upper quadrant pain AMYLASE Routine 12/14/2017 5:40 PM EDT Left upper quadrant pain LIPID PANEL Routine 12/14/2017 5:40 PM EDT Mixed hyperlipidemia POCT GLYCOSYLATED HEMOGLOBIN (HGB A1C) Routine 12/14/2017 2:00 PM EDT Uncontrolled type 2 diabetes mellitus with hyperglycemia, without long-term current use of insulin POCT GLUCOSE FINGERSTICK Routine 12/14/2017 2:00 PM EDT Uncontrolled type 2 diabetes mellitus with hyperglycemia, without long-term current use of insulin documented in this encounter Results * (ABNORMAL) Lipid panel (12/14/2017 5:40 PM EDT) Total Cholesterol 284(H) 0 - 200 mg/dL 12/14/2017 9:18 PM EDT [facility] Triglycerides 452(H) 0 - 150 mg/dL 12/14/2017 9:18 PM EDT [facility] HDL Cholesterol 49 40 - 60 mg/dL 12/14/2017 9:18 PM EDT [facility] LDL Cholesterol 229(H) 0 - 130 mg/dL 12/14/2017 9:18 PM EDT [facility] Blood Venipuncture / Unknown 12/14/2017 5:40 PM EDT 12/14/2017 5:40 PM EDT [facility] - 12/14/2017 9:18 PM EDT Cholesterol Reference Ranges: Desirable ? < 200 [...] mg/dL Very High ? > 189 mg/dL Kalyanievangelista Tingic PA-C LAB BLOOD ORDERABLES Final Result Performing Organization Address [facility] de Phone Number [facility]
[address] [place] [address], * (ABNORMAL) Lipase (12/14/2017 5:40 PM EDT) Lipase 55(H) 6 - 51 U/L 12/14/2017 9:24 PM EDT [facility] Blood Venipuncture / Unknown 12/14/2017 5:40 PM EDT 12/14/2017 5:40 PM EDT Kalyanievangelista Tingic PA-C LAB BLOOD ORDERABLES Final Result Performing Organization Address [facility] de Phone Number [facility]
[address] [place] [address], * (ABNORMAL) Amylase (12/14/2017 5:40 PM EDT) Amylase 28(L) 30 - 118 U/L 12/14/2017 9:18 PM EDT [facility] Blood Venipuncture / Unknown 12/14/2017 5:40 PM EDT 12/14/2017 5:40 PM EDT Roc Maguireic PA-C LAB BLOOD ORDERABLES Final Result Performing Organization Address [facility] de Phone Number [facility]
[address] [place] [address], * POC Glycosylated Hemoglobin (Hb A1C) (12/14/2017 2:00 PM EDT) Hemoglobin A1C 7.7 % [facility] Blood 12/14/2017 2:00 PM EDT us Roc Maguireic PA-C POINT OF CARE TEST ORDERAB LES Final Result [facility]
[address] [place] [address], [place] [phone] * (ABNORMAL) POC Glucose Fingerstick (12/14/2017 2:00 PM EDT) Glucose 281(A) 70 - 130 mg/dL [facility] Blood 12/14/2017 2:00 PM EDT us Roc Oliviaevic PA-C POINT OF CARE TEST ORDERAB LES Final Result [facility]
[address] [place] [address], [place] [phone] documented in this encounter Visit Diagnoses Diagnosis Uncontrolled type 2 diabetes mellitus with hyperglycemia, without long-term current use of insulin- Primary Mixed hyperlipidemia Left upper quadrant pain Abdominal pain, left upper quadrant documented in this encounter
--- OUTSIDE RECORDS SUMMARY | 2024-02-20 09:14 | XMS_ITS | Encounter Summary ---
[facility] Address [address] [place] [address] Care Team Providers Care Six Color Press Operator Name Role Phone Guerline Randall APRN Primary Care Provider [phone] Encounter Details Date Type Department Care Team (Late st Contact Info) Description 01/30/2018 1:55 PM EDT Lab [facility] [address] [facility] [address] [place] [address] Therapeutic drug monitoring Social History Tobacco Use [...] Description 03/13/2024 2:45 PM EST Office Visit [facility] CARD[facility]OLOG[facility] [address] [place] [address] Pj Ace MD [address] [place] [address] documented as of this encounter Procedures Procedure Name Priority Date/Time Associated Diagnosis Comments COMPREHENSIVE METABOLIC PANEL Routine 01/30/2018 1:52 PM EDT Therapeutic drug monitoring documented in this encounter Results * (ABNORMAL) Comprehensive Metabolic Panel (01/30/2018 1:52 PM EDT) Glucose 94 70 - 100 mg/dL 01/30/2018 5:27 PM EDT [facility] BUN 21 9 - 23 mg/dL 01/30/2018 5:27 PM EDT [facility] Creatinine 0.80 0.60 - 1.30 mg/dL 01/30/2018 5:27 PM EDT [facility] Sodium 140 132 - 146 mmol/L 01/30/2018 5:27 PM EDT [facility] Potassium 4.8 3.5 - 5.5 mmol/L 01/30/2018 5:27 PM EDT [facility] Chloride 103 99 - 109 mmol/L 01/30/2018 5:27 PM EDT [facility] CO2 29.0 20.0 - 31.0 mmol/L 01/30/2018 5:27 PM EDT [facility] Calcium 9.9 8.7 - 10.4 mg/dL 01/30/2018 5:27 PM EDT [facility] Total Protein 7.2 5.7 - 8.2 g/dL 01/30/2018 5:27 PM EDT [facility] Albumin 4.70 3.20 - 4.80 g/dL 01/30/2018 5:27 PM EDT [facility] ALT (SGPT) 114(H) 7 - 40 U/L 01/30/2018 5:27 PM EDT [facility] AST (SGOT) 74(H) 0 - 33 U/L 01/30/2018 5:27 PM EDT [facility] Alkaline Phosphatase 153(H) 25 - 100 U/L 01/30/2018 5:27 PM EDT [facility] Total Bilirubin 0.5 0.3 - 1.2 mg/dL 01/30/2018 5:27 PM EDT [facility] eGFR Non Amer 73 >60 mL/min/1.7 3 01/30/2018 5:27 PM EDT [facility] Globulin 2.5 gm/dL 01/30/2018 5:27 PM EDT [facility] A/G Ratio 1.9 1.5 - 2.5 g/dL 01/30/2018 5:27 PM EDT [facility] BUN/Creatinine Ratio 26.3(H) 7.0 - 25.0 01/30/2018 5:27 PM EDT [facility] Anion Gap 8.0 3.0 - 11.0 mmol/L 01/30/2018 5:27 PM EDT [facility] Blood Venipuncture / Unknown 01/30/2018 1:52 PM EDT 01/30/2018 1:52 PM EDT Narrative [facility] - 01/30/2018 5:27 PM EDT National Kidney Foundation Guidelines Stage ? Description ?GFR 1 ? Normal or High ? 90+ 2 ? Mild decrease ?60-89 3 ? Moderate decrease ??30-59 4 ? Severe decrease ?15-29 5 ? Kidney failure ? <15 The MDRD GFR formula is only valid for adults with stable renal function between ages 18 and 70. us Guero VILLAGOMEZ-Cristino LAB BLOOD ORDERABLES Final R esult [facility]
[address] [place] [address], documented in this encounter Visit Diagnoses Diagnosis Therapeutic drug monitoring Encounter for therapeutic drug monitoring documented in this encounter Care Teams Six Color Press Operator Relationship Specialty Start Date End Date Guerline Randall APRN Desiree [facility] [address] [place] [address] PCP - General Family Medicine 12/19/17 04/11/18 documented as of this encounter
--- OUTSIDE RECORDS SUMMARY | 2024-02-20 09:14 | XMS_ITS | Encounter Summary ---
Author Organization [facility] Address [address] [place] [address] Care Team Providers Care Geotechnical Engineering Technician Name Role Phone Madelaine Norman APRN Primary Care Provider Encounter Details Date Type Department Care Team (Late st Contact Info) Description 05/24/2017 Telephone [facility] INTER[facility] MED[facility]INE [address] [place] [address] Roc Tracey PA-C [address] [place] [address] Social History Tobacco Use Types Packs/Day [...] encounter Miscellaneous Notes * Telephone Encounter - Ana Paula Delgado MA - 05/28/2017 12:56 PM EST Patient notified RX E- scripted * Telephone Encounter - Ana Paula Delgado MA - 05/28/2017 8:51 AM EST Please see Patient message and advise on alternate RX * Telephone Encounter - Ariella Davis - 05/24/2017 10:28 AM EST PT WAS SEEN ON 05/22 AND WAS GIVEN A DISCOUNT CARD FOR HER [employer].. IT IS STILL GOING TO COST HER AROUND $800 AFTER USING THE CARD AND SHE WANTS TO KNOW IF SHE CAN BE PUT ON SOMETHING ELSE THAT'S NOT EXPENSIVE. PLEASE ADVISE. THANKS. documented in this encounter Plan of Treatment Upcoming Encounters Date Type Department Care Team (Late st Contact Info) Description 03/13/2024 2:45 PM EST Office Visit [facility] CARDIOLOGY [address] [place] [address] [place] [address] Pj Ace MD [address] [facility] [address] [facility] [address] [place] [address] documented as of this encounter Visit Diagnoses Not on filedocumented in this encounter Care Teams Geotechnical Engineering Technician Relationship Specialty Start Date End Date Madelaine Norman APRN [address] [facility] [address] [place] [address] PCP - General Internal Medicine 12/13/16 09/07/17 documented as of this encounter
--- OUTSIDE RECORDS SUMMARY | 2024-02-20 09:14 | XMS_ITS | Encounter Summary ---
[facility] Address [address] [place] [address] Care Team Providers Care Delivery Recruiter Name Role Phone Unavailable Primary Care Provider Unavailabl e Reason for Referral * Diagnostic Imaging (Routine) - Closed Specialty Diagnoses / Procedures Referred By Contac t Referred To Contact Radiology Diagnoses Gastroesophageal reflux disease without esophagitis Nausea Left upper quadrant pain Procedures US Abdomen Complete Guerline Randall APRN Phone: tel: fax: [facility] [address] [place] [address] Phone: tel: Referral ID Status Reason Start Date Expiration Date Visits Re quested Visits Authorized [id number] Closed 12/14/2017 12/14/2018 1 1 Reason for Visit * Reason Comments Abdominal Pain Left side under jose st area Diabetes Seen Vedrana earlier , A1C is 7.7 Encounter Details Date Type Department Care Team (Latest Contact Info) Description 12/14/2017 3:15 PM EDT Office Visit [facility] INTERNAL MEDICINE [address] [place] [address] Guerline Randall APRN [address] [place] [address] Gastroesophageal reflux disease without esophagitis (Primary Dx); Nausea; Left upper quadrant pain Social History Tobacco [...] Sign Reading Time Taken Comments Blood Pressure 128/72 12/14/2017 2:29 PM EDT Pulse 82 12/14/2017 2:29 PM EDT Temperature - - Respiratory Rate - - Oxygen Saturation 97% 12/14/2017 2:29 PM EDT Inhaled Oxygen Concentration - - Weight 86.6 kg (191 lb) 12/14/2017 2:29 PM EDT Height 157.5 cm (5' 2 ) 12/14/2017 2:29 PM EDT Body Mass Index 34.93 12/14/2017 2:29 PM EDT documented in this encounter Progress Notes * Guerline Randall, MACHINE LACER - 12/14/2017 3:15 PM EDT CHIEF COMPLAINT Abdominal Pain (Left side under breast area) and Diabetes (Seen Vedrana earlier, A1C is 7.7) HPI Gertrudis Gonzalez is a 61 y.o. female is here today for follow-up of abd pain and diabetes 3 wk hx of LUQ pain, increased reflux, heartburn, nausea; neg vomiting, diarrhea; Visit with vedrana today, A1C back up to 7.7; glymepiride 2 mg; also bydureon 2 mg SC weekly; Past Medical History: Diagnosis Date ??? Anxiety [...] problem list. ROS Review of Systems Constitutional: Positive for activity change and appetite change. Negative for fatigue. Gastrointestinal: Positive for abdominal pain and nausea. Negative for abdominal distention, diarrhea and vomiting. All other systems reviewed and are negative. BP 128/72 Pulse 82 Ht 157.5 cm (62 ) Wt 86.6 kg (191 lb) LMP (LMP Unknown) SpO2 97% ? No BMI 34.93 kg/m?? PHYSICAL EXAM Physical Exam Constitutional: She is oriented to person, place, and time. She appears well- developed and well-nourished. HENT: Head: Normocephalic and atraumatic. Eyes: Conjunctivae are normal. Neck: Trachea normal and normal range of motion. Neck supple. No JVD present. No thyromegaly present. Cardiovascular: Normal rate, regular rhythm and normal heart sounds. No murmur heard. No swelling in BLE Pulmonary/Chest: Effort normal and breath sounds normal. Abdominal: abd soft, RUQ and epigastric tenderness; non-distended; neg Johnston's sign; neg HSM, guarding, or rigidity Neurological: She is alert and oriented to person, place, and time. Skin: Skin is warm, dry and intact. Vitals reviewed. ASSESSMENT/PLAN 1. Gastroesophageal reflux disease without esophagitis -start PPI - omeprazole (priLOSEC) 20 MG capsule; Take 1 capsule by mouth Daily. Dispense: 30 capsule; Refill:5 - US Abdomen Complete; Future 2. Nausea -antiemetic therapy - ondansetron ODT (ZOFRAN-ODT) 4 MG disintegrating tablet; Take 1 tablet by mouth Every 8 (Eight) Hours As Needed for Nausea or Vomiting. Dispense: 21 tablet; Refill: 2 - US Abdomen Complete; Future 3. Left upper quadrant pain -check LFTs and kidney fxn - Comprehensive metabolic panel - US Abdomen Complete; Future Plan of care reviewed with patient at the conclusion of today's visit. Education was provided in regards to diagnosis, management and any prescribed or recommended OTC medications. Patient verbalizesUnderstanding of and agreement with management plan. FOLLOW-UP 3 month(s) or sooner depending on result of abd u/s RTC as needed Guerline Randall APRN 12/14/2017 documented in this encounter Plan of Treatment Upcoming Encounters Date Type Department Care Team (Late st Contact Info) Description 03/13/2024 2:45 PM EST Office Visit [facility] CARDIOLOGY [address] [facility] [place] [address] Pj Ace MD [address] [place] [address] documented as of this encounter Procedures Procedure Name Priority Date/Time Associated Diagnosis Comments COMPREHENSIVE METABOLIC PANEL Routine 12/14/2017 5:40 PM EDT Left upper quadrant pain documented in this [...] COMPLETE-12/26/2017: INDICATION: LUQ abd pain; nausea, GERD; K21.7-Mmfmpb-xgmlpgtpop reflux disease without esophagitis; R11.0-Nausea; R10.12-Left upper [...] COMPLETE-12/26/2017: INDICATION: LUQ abd pain; nausea, GERD; K21.3-Hwrtcj-xygbeapqoj reflux disease without esophagitis; R11.0-Nausea; R10.12-Left upper [...] by Wayne Guallpa. us Guerline Randall APRN [facility] US ORDERABLES Final Result * (ABNORMAL) Comprehensive metabolic panel (12/14/2017 5:40 PM EDT) Glucose 192(H) 70 - 100 mg/dL 12/14/2017 9:18 PM EDT [facility] BUN 18 9 - 23 mg/dL 12/14/2017 9:18 PM EDT [facility] Creatinine 0.73 0.60 - 1.30 mg/dL 12/14/2017 9:18 PM EDT [facility] Sodium 144 132 - 146 mmol/L 12/14/2017 9:18 PM EDT [facility] Potassium 4.4 3.5 - 5.5 mmol/L 12/14/2017 9:18 PM EDT [facility] Chloride 101 99 - 109 mmol/L 12/14/2017 9:18 PM EDT [facility] CO2 32.0(H) 20.0 - 31.0 mmol/L 12/14/2017 9:18 PM EDT [facility] Calcium 9.7 8.7 - 10.4 mg/dL 12/14/2017 9:18 PM EDT [facility] Total Protein 6.6 5.7 - 8.2 g/dL 12/14/2017 9:18 PM EDT [facility] Albumin 4.34 3.20 - 4.80 g/dL 12/14/2017 9:18 PM EDT [facility] ALT (SGPT) 132(H) 7 - 40 U/L 12/14/2017 9:18 PM EDT [facility] AST (SGOT) 125(H) 0 - 33 U/L 12/14/2017 9:18 PM EDT [facility] Alkaline Phosphatase 149(H) 25 - 100 U/L 12/14/2017 9:18 PM EDT [facility] Total Bilirubin 0.4 0.3 - 1.2 mg/dL 12/14/2017 9:18 PM EDT [facility] eGFR Non Amer 81 >60 mL/min/1.7 3 12/14/2017 9:18 PM EDT [facility] Globulin 2.3 gm/dL 12/14/2017 9:18 PM EDT [facility] A/G Ratio 1.9 1.5 - 2.5 g/dL 12/14/2017 9:18 PM EDT [facility] BUN/Creatinine Ratio 24.7 7.0 - 25.0 12/14/2017 9:18 PM T [facility] Anion Gap 11.0 3.0 - 11.0 mmol/L 12/14/2017 9:18 PM T [facility] Blood Venipuncture / Unknown 12/14/2017 5:40 PM EDT 12/14/2017 5:40 PM EDT [facility] - 12/14/2017 9:18 PM EDT National Kidney Foundation Guidelines Stage ? Description ?GFR 1 ? Normal or High ? 90+ 2 ? Mild decrease ?60-89 3 ? Moderate decrease ??30-59 4 ? Severe decrease ?15-29 5 ? Kidney failure ? <15 The MDRD GFR formula is only valid for adults with stable renal function between ages 18 and 70. us Guerline Randall MACHINE LACER LAB BLOOD ORDERABLES Final Res ult [facility]
[address] [place] [id number], documented in this encounter Visit Diagnoses Diagnosis Gastroesophageal reflux disease without esophagitis- Primary Esophageal reflux Nausea Nausea alone Left upper quadrant pain Abdominal pain, left upper quadrant Gastroesophageal reflux disease without esophagitis Esophageal reflux Nausea Nausea alone Left upper quadrant pain Abdominal pain, left upper quadrant documented in this encounter
--- OUTSIDE RECORDS SUMMARY | 2024-02-20 09:14 | XMS_ITS | Encounter Summary ---
[facility] Address [address] [place] [address] Care Team Providers Care Home Planning Consultant Salesperson Name Role Phone Madelaine Norman APRN Primary Care Provider [phone] Reason for Referral * Consultation (Routine) - Closed Specialty Diagnoses / Procedures Referred By Contac t Referred To Contact Endocrinology Diagnoses Diabetes mellitus type 2 in obese Madelaine Norman APRN [address] [facility] [address] [place] [address] Phone: tel: fax: [facility]OLOG[facility] [address] [facility] [address] [place] [address] Phone: tel: fax: Referral ID Status Reason Start Date Expiration Date V isits Requested Visits Authorized [id number] Closed Specialty Services Required 05/09/2017 05/09/2018 1 1 Reason for Visit * Reason Comments Follow-up $ week Follow up Encounter Details Date Type Department Care Team (Late st Contact Info) Description 05/09/2017 11:00 AM EST Office Visit [facility] INTERNAL MEDICINE [address] [place] [address] Madelaine Norman APRN [address] [facility] [address] [place] [address] Diabetes mellitus type 2 in obese (Primary Dx); Essential hypertension; Obesity with sleep apnea Social History Tobacco Use Types Packs/Day Years [...] Sign Reading Time Taken Comments Blood Pressure 148/98 05/09/2017 11:10 AM EST Pulse 93 05/09/2017 11:10 AM EST Temperature - - Respiratory Rate - - Oxygen Saturation 98% 05/09/2017 11:10 AM EST Inhaled Oxygen Concentration - - Weight 84.4 kg (186 lb) 05/09/2017 11:10 AM EST Height - - Body Mass Index 34.02 05/07/2017 12:34 PM EST documented in this encounter Progress Notes * Madelaine Norman APRN - 05/09/2017 12:21 PM ESTAssociated Problem(s): Obesity with sleep apnea (Resolved 09/05/2021) Does not wear mask, does wear bite guard she got from the dentist. We have talked about the relationship between untreated apnea and high b/p * Madelaine Norman APRN - 05/09/2017 11:00 AM EST Subjective Follow-up ($ week Follow up ) Gertrudis Gonzalez is a 61 y.o. female. Allergies Allergen Reactions ??? Iain Inhibitors Cough ??? Amlodipine ??? Beta Adrenergic Blockers ??? Cyclobenzaprine ??? Hydrochlorothiazide ??? Hyzaar [Losartan Potassium-Hctz] ??? Latex ??? Losartan ??? Metformin ??? Penicillins ??? Pioglitazone ??? Spironolactone History of Present Illness B/p continues to be high, pt taking meds as ordered, still dealing with pain mg't for back pain, nothing has worked so far so this is increasing b/p and she can not exercise with the pain , she does try to do low sodium diet , no open sores/lesions The following portions of the patient's history were reviewed and updated as appropriate: allergies, past family history, past surgical history and problem list. Review of Systems Constitutional: Negative. HENT: Negative. Eyes: Negative. Respiratory: Negative. Cardiovascular: Negative. Genitourinary: Negative. Musculoskeletal: Positive for arthralgias. Sees pain mg't All other systems reviewed and are negative. Objective Physical Exam Constitutional: She is oriented to person, place, and time. She appears well- developed and well-nourished. HENT: Head: Normocephalic and atraumatic. Eyes: Conjunctivae are normal. Cardiovascular: Normal rate and regular rhythm. Pulmonary/Chest: Effort normal and breath sounds normal. Neurological: She is alert and oriented to person, place, and time. Skin: Skin is warm and dry. Psychiatric: She has a normal mood and affect. Her behavior is normal. Judgment and thought contentnormal. Nursing note and vitals reviewed. BP 148/98 Pulse 93 Wt 84.4 kg (186 lb) LMP (LMP Unknown) SpO2 98% BMI 34.02 kg/m2 Assessment/Plan Problem List Items Addressed This Visit Digestive Obesity with sleep apnea Does not wear mask, does wear bite guard she got from the dentist. We have talked about the relationship between untreated apnea and high b/p Endocrine Diabetes mellitus type 2 in obese - Primary Relevant Medications acarbose (PRECOSE) 100 MG tablet Other Relevant Orders POC Glycosylated Hemoglobin (Hb A1C) (Completed) POCT Glucose (Completed) Ambulatory Referral to Endocrinology Other Visit Diagnoses Essential hypertension Relevant Medications hydrALAZINE (APRESOLINE) 25 MG tablet Results for orders placed or performed in visit on 05/09/17 POC Glycosylated Hemoglobin (Hb A1C) Result Value Ref Range Hemoglobin A1C 8.9 % POCT Glucose Result Value Ref Range Glucose 174 (A) 70 - 130 mg/dL Discussed better eating habits, low sodium diet, exercise recheck b/p 5 weeks documented in this encounter Plan of Treatment Upcoming Encounters Date Type Department Care Team (Late st Contact Info) Description 03/13/2024 2:45 PM EST Office Visit [facility] CARDIOLOGY [address] [facility] [place] [address] Pj Ace MD [address] [facility] [address] [place] [address] Scheduled Referrals Name Type Priority Associated Diagnoses Order Schedule Ambulatory Referral to Endocrinology Outpatient Referral Routine Diabetes mellitus type 2 in obese Ordered: 05/09/2017 documented as of this encounter Procedures Procedure Name Priority Date/Time Associated Diagnosis Comments POCT GLYCOSYLATED HEMOGLOBIN (HGB A1C) Routine 05/09/2017 11:48 AM EST Diabetes mellitus type 2 in obese POCT GLUCOSE FINGERSTICK Routine 05/09/2017 11:48 AM EST Diabetes mellitus type 2 in obese documented in this encounter Results * (ABNORMAL) POCT Glucose (05/09/2017 11:48 AM EST) Glucose 174(A) 70 - 130 mg/dL [facility] Blood 05/09/2017 11:4 8 AM EST us Madelaine Norman APRN POINT OF CARE TEST ORDERABL ES Final Result [facility]
[address] [place] [address], [place] [phone] * POC Glycosylated Hemoglobin (Hb A1C) (05/09/2017 11:48 AM EST) Hemoglobin A1C 8.9 % [facility] Blood 05/09/2017 11:4 8 AM EST us Madelaine Norman APRN POINT OF CARE TEST ORDERABL ES Final Result [facility]
[address] [place] [address], [place] [phone] documented in this encounter Visit Diagnoses Diagnosis Diabetes mellitus type 2 in obese- Primary Type II or unspecified type diabetes mellitus without mention of complication, not stated as uncontrolled Essential hypertension Unspecified essential hypertension Obesity with sleep apnea documented in this encounter Care Teams Home Planning Consultant Salesperson Relationship Specialty Start Date End Date Madelaine Norman, CAREER TECHNICAL COUNSELOR [address] [place] [address] PCP - General Internal Medicine 12/13/16 09/07/17 documented as of this encounter
--- OUTSIDE RECORDS SUMMARY | 2024-02-20 09:14 | XMS_ITS | Encounter Summary ---
[facility] Address [address] [place] [address] Care Team Providers Care Safe Deposit Box Rental Clerk Name Role Phone Madelaine Norman APRN Primary Care Provider [phone] Reason for Visit * Reason Comments Med Refill Encounter Details Date Type Department Care Team (Late Contact Info) Description 08/15/[address] [facility] PAIN MANAGEMENT [address] [facility] [address] [place] [id number] Bebeto Adams MD [address] [facility] [address] [place] [address] Meningeal adhesions/lumbar arachnoiditis; Postlaminectomy syndrome of lumbar [...] HOSPITAL CARDIOLOGY [address] [place] [address] [address] Pj Ace MD [address] [facility] [address] [place], [place] [id number] documented as of this encounter Visit Diagnoses Diagnosis Meningeal adhesions/lumbar arachnoiditis Postlaminectomy syndrome of lumbar region Postlaminectomy syndrome, lumbar region Herniated lumbar intervertebral disc Displacement of lumbar intervertebral disc without myelopathy documented in this encounter Care Teams Safe Deposit Box Rental Clerk Relationship Specialty Start Date End Date Madelaine Norman, COMPLIANCE REVIEWER [address] [place] [address] PCP - General Internal Medicine 12/13/16 09/07/17 documented as of this encounter
--- OUTSIDE RECORDS SUMMARY | 2024-02-20 09:14 | XMS_ITS | Encounter Summary ---
Author Organization [facility] Address [address] [place] [address] Care Team Providers Care Weatherization Operations Manager Name Role Phone Guerline Randall APRN Primary Care Provider [phone] Encounter Details Date Type Department Care Team ([facility] Contact Info) Description 12/26/2017 2:00 PM EDT Lab [facility] [address] [place] [address] Elevated liver enzymes; Pain of upper abdomen; Hypercalcemia Social History Tobacco Use Types Packs/Day [...] [facility] [address] [place] [address] [address] [place] [address] Pj Ace MD [facility] Count Includes [facility] [address] [address] documented as of this encounter Procedures Procedure Name Priority Date/Time Associated Diagnosis Comments CBC WITH AUTO DIFFERENTIAL Routine 12/26/2017 2:04 PM EDT Elevated liver enzymes HEPATITIS PANEL, ACUTE Routine 12/26/2017 2:04 PM EDT Elevated liver enzymes Pain of upper abdomen CBC AND DIFFERENTIAL Routine 12/26/2017 2:04 PM EDT Elevated liver enzymes PTH, INTACT Routine 12/26/2017 2:04 PM EDT Hypercalcemia GAMMA GT Routine 12/26/2017 2:04 PM EDT Elevated liver enzymes Pain of upper abdomen documented in this encounter Results * (ABNORMAL) CBC Auto Differential (12/26/2017 2:04 PM EDT) [facility] WBC 7.23 3.50 - 10.80 10*3/mm3 12/26/2017 5:53 PM EDT [facility] RBC 4.93 3.89 - 5.14 10*6/mm3 12/26/2017 5:53 PM EDT [facility] Hemoglobin 14.4 11.5 - 15.5 g/dL 12/26/2017 5:53 PM EDT [facility] Hematocrit 44.8(H) 34.5 - 44.0 % 12/26/2017 5:53 PM EDT [facility] MCV 90.9 80.0 - 99.0 fL 12/26/2017 5:53 PM EDT [facility] MCH 29.2 27.0 - 31.0 pg 12/26/2017 5:53 PM EDT [facility] MCHC 32.1 32.0 - 36.0 g/dL 12/26/2017 5:53 PM EDT [facility] RDW 13.1 11.3 - 14.5 % 12/26/2017 5:53 PM EDT [facility] RDW-SD 43.3 37.0 - 54.0 fl 12/26/2017 5:53 PM EDT [facility] MPV 11.5 6.0 - 12.0 fL 12/26/2017 5:53 PM EDT [facility] Platelets 253 150 - 450 10*3/mm3 12/26/2017 5:53 PM EDT [facility] Neutrophil % 59.0 41.0 - 71.0 % 12/26/2017 5:53 PM EDT [facility] Lymphocyte % 32.2 24.0 - 44.0 % 12/26/2017 5:53 PM EDT [facility] Monocyte % 5.7 0.0 - 12.0 % 12/26/2017 5:53 PM EDT [facility] Eosinophil % 2.5 0.0 - 3.0 % 12/26/2017 5:53 PM EDT [facility] Basophil % 0.6 0.0 - 1.0 % 12/26/2017 5:53 PM EDT [facility] Immature Grans % 0.3 0.0 - 0.6 % 12/26/2017 5:53 PM EDT [facility] Neutrophils, Absolute 4.27 1.50 - 8.30 10*3/mm3 12/26/2017 5:53 PM EDT [facility] Lymphocytes, Absolute 2.33 0.60 - 4.80 10*3/mm3 12/26/2017 5:53 PM EDT [facility] Monocytes, Absolute 0.41 0.00 - 1.00 10*3/mm3 12/26/2017 5:53 PM EDT [facility] Eosinophils, Absolute 0.18 0.00 - 0.30 10*3/mm3 12/26/2017 5:53 PM EDT [facility] Basophils, Absolute 0.04 0.00 - 0.20 10*3/mm3 12/26/2017 5:53 PM EDT [facility] Immature Grans, Absolute 0.02 0.00 - 0.03 10*3/mm3 12/26/2017 5:53 PM EDT [facility] Blood Venipuncture / Unknown 12/26/2017 2:04 PM EDT 12/26/2017 2:04 PM EDT us Guerline Randall APRN LAB BLOOD ORDERABLES Final Res ult [facility]
[address] [place] [address], [place] [phone] * PTH, Intact (12/26/2017 2:04 PM EDT) Pathologist [facility] PTH, Intact 30.9 11.0 - 80.0 pg/mL 12/26/2017 8:38 PM EDT [facility] Blood Venipuncture / Unknown 12/26/2017 2:04 PM EDT 12/26/2017 2:04 PM EDT us Guerline Deborah Randall OUTSIDE INDUSTRIAL SALES REPRESENTATIVE LAB BLOOD ORDERABLES Final Res ult Performing Organization Address [facility]/ZIP Co de Phone Number [facility]
[address] [place] [address], [place] [phone] * Hepatitis Panel, Acute (12/26/2017 2:04 PM EDT) [facility] Hepatitis B Surface Ag Non-Reacti ve Non-Reacti ve 12/26/2017 7:06 PM EDT [facility] Hep A IgM Non-Reacti ve Non-Reacti ve 12/26/2017 7:06 PM EDT [facility] Comment:Results may be false ly decreased if patient taking Biotin. Hep B C IgM Non-Reacti ve Non-Reacti ve 12/26/2017 7:06 PM EDT [facility] Comment:Results may be false ly decreased if patient taking Biotin. Hepatitis C Ab Non-Reacti ve Non-Reacti ve 12/26/2017 7:06 PM EDT [facility] Blood Venipuncture / Unknown 12/26/2017 2:04 PM EDT 12/26/2017 2:04 PM EDT us Guerline Randall OUTSIDE INDUSTRIAL SALES REPRESENTATIVE LAB BLOOD ORDERABLES Final Res ult Performing Organization Address [facility]/ZIP Co de Phone Number [facility]
[address] [place] [address], [place] [phone] * (ABNORMAL) Gamma GT (12/26/2017 2:04 PM EDT) GGT 59(H) 0 - 37 U/L 12/26/2017 6:21 PM EDT [facility] Blood Venipuncture / Unknown 12/26/2017 2:04 PM EDT 12/26/2017 2:04 PM EDT us Guerline Randall APRN LAB BLOOD ORDERABLES Final Res ult [facility]
[address] [place] [address], documented in this encounter Visit Diagnoses Diagnosis Elevated liver enzymes Other nonspecific abnormal serum enzyme levels Pain of upper abdomen Hypercalcemia documented in this encounter Care Teams Weatherization Operations Manager Relationship Specialty Start Date End Date Guerline Randall APRN Desiree E [address] [facility] [address] [place] [address] PCP - General Family Medicine 12/19/17 04/11/18 documented as of this encounter
--- OUTSIDE RECORDS SUMMARY | 2024-02-20 09:14 | XMS_ITS | Encounter Summary ---
[facility] Address [address] [place] [id number] Care Team Providers Care Music Critic Name Role Phone Guerline Randall APRN Primary Care Provider [phone] Reason for Visit * Reason Comments Med Refill Encounter Details Date Type Department Care Team (Late st Contact Info) Description 01/25/2018 Refill [facility] [address] [facility] [address] [place] [address] Bebeto Adams MD [address] [facility] [address] [place] [address] Social History Tobacco Use Types Packs/Day Years [...] CENTER CARDI[facility] [address] [address] Pj Ace MD [address] [facility] [address] [place] [address] documented as of this encounter Visit Diagnoses Not on filedocumented in this encounter Care Teams Music Critic Relationship Specialty Start Date End Date Guerline Randall APRN [address] [place] [address] PCP - General Family Medicine 12/19/17 04/11/18 documented as of this encounter
--- OUTSIDE RECORDS SUMMARY | 2024-02-20 09:14 | XMS_ITS | Encounter Summary ---
[facility] Address [address] [place] [address] Care Team Providers Care Master Glazier Name Role Phone Guerline Randall APRN Primary Care Provider [phone] Encounter Details Date Type Department Care Team (Late st Contact Info) Description 12/31/2017 Telephone [facility]IC[facility] [address] [place] [address] Guerline Randall APRN [address] [facility] [address] [place] [address] Social History Tobacco Use Types Packs/Day Years [...] Telephone Encounter - Xiao Britton MA - 01/02/2018 10:46 AM EDT Let pt know of message. Pt verbalized understanding. * Telephone Encounter - Naya Dang - 01/01/2018 11:37 AM EDT PATIENT IS CALLING BACK TO GET THE RESULTS OF HER RECENT LIVER AND PANCREAS RESULTS AND U/S REPORT OF PANCREAS. YOU CAN REACH HER BACK AT [phone] * Telephone Encounter - Guerline Randall APRN - 12/31/2017 6:31 PM EDT They have been elevated since the last blood draw, that's why I have ordered so many tests--indicative of fatty liver disease--she needs to see Gastro * Telephone Encounter - Xiao Britton MA - 12/31/2017 5:32 PM EDT I did call her with the labs, she wanted to know what the liver elevations meant and didn't want totell her the wrong thing. * Telephone Encounter - Guerline Randall APRN - 12/31/2017 5:14 PM EDT The labs nor the u/s report are in my In basket, so I have sent result notes on these--why have they not been called to her? U/s report shows she has a fatty liver which is why liver fxns are elevated--I placed a referral togastroenterology This was all in the result note!!! * Telephone Encounter - Xiao Britton MA - 12/31/2017 5:04 PM EDT Pt would like to know what she should do next with latest lab results and would also like to know the u/s results. * Telephone Encounter - Xiao Britton MA - 12/31/2017 3:59 PM EDT Called pt back, no answer. * Telephone Encounter - Shikha Neumann - 12/31/2017 2:43 PM EDT PT WAS RETURNING A CALL SHE STATES THAT SHE HAS RECEIVED FROM OUR OFFICE AND WOULD LIKE TO GET A CALL BACK AT [phone] * Telephone Encounter - Naya Dang - 12/31/2017 1:28 PM EDT PATIENT IS RETURNING OUR CALL ABOUT TEST RESULTS AND ABOUT GETTING APPOINTMENT WITH [employer] EDGER SHE HAS NOT HEARD THE RESULTS OF HER RECENT U/S. YOU CAN REACH HER BACK AT [phone] documented in this encounter Plan of Treatment Upcoming Encounters Date Type Department Care Team (Late st Contact Info) Description 03/13/2024 2:45 PM EST Office Visit [facility] C[facility]IOLOG[facility] [address] [place] [address] [place] [address] Pj Ace MD [address] [place] [address] documented as of this encounter Visit Diagnoses Not on filedocumented in this encounter Care Teams Master Glazier Relationship Specialty Start Date End Date Guerline Randall APRN [address] [place] [address] PCP - General Family Medicine 12/19/17 04/11/18 documented as of this encounter
--- OUTSIDE RECORDS SUMMARY | 2024-02-20 09:14 | XMS_ITS | Encounter Summary ---
[facility] Address [address] [place] [address] Care Team Providers Care Repairer Veneer Sheet Name Role Phone Unavailable Primary Care Provider Unavailabl e Reason for Visit * Reason Comments Med Refill Encounter Details Date Type Department Care Team (Late Contact Info) Description 12/10/2017 Refill [facility] [address] [facility] [address] [place] [id number] Bebeto Adams MD [address] [facility] [address] [place] [address] Social History Tobacco Use Types Packs/Day Years [...] [facility] [address] [place] [address] [place] [address] Pj Ace MD [address] [facility] [address] [place] [address] documented as of this encounter Visit Diagnoses Not on filedocumented in this encounter
--- OUTSIDE RECORDS SUMMARY | 2024-02-20 09:14 | XMS_ITS | Encounter Summary ---
[facility] [address] [place] [address] Care Team Providers Care Inspector [employer] Name Role Phone Madelaine Norman APRN Primary Care Provider [phone] Reason for Visit * Reason Comments Med Refill Encounter Details Date Type Department Care Team (Late st Contact Info) Description 07/02/2017 Refill [facility] [address] [phone] Bebeto Adams MD [address] [place] [address] Meningeal adhesions/lumbar arachnoiditis; Postlaminectomy syndrome of lumbar [...] Telephone Encounter - Kandi Myrick MA - 07/02/2017 4:19 PM EDT Patient had 30 day script filled at [facility] on 05/08/2017 and 90 day script filled at [facility] on 05/22/2017 documented in this encounter Plan of Treatment Upcoming Encounters Date Type Department Care Team (Late st Contact Info) Description 03/13/2024 2:45 PM EST Office Visit [facility] C[facility] [address] [place] [phone] Pj Ace MD [address] [facility] [address] [place] [address] documented as of this encounter Visit Diagnoses Diagnosis Meningeal adhesions/lumbar arachnoiditis Postlaminectomy syndrome of lumbar region Postlaminectomy syndrome, lumbar region Herniated lumbar intervertebral disc Displacement of lumbar intervertebral disc without myelopathy documented in this encounter Care Teams Inspector [employer] Relationship Specialty Start Date End Date Madelaine Norman, QUALITY CONTROL TESTER [address] [facility] [address] [place] [address] PCP - General Internal Medicine 12/13/16 09/07/17 documented as of this encounter
--- OUTSIDE RECORDS SUMMARY | 2024-02-20 09:14 | XMS_ITS | Encounter Summary ---
[facility] Address [address] [place] [address] Care Team Providers Care Manual Arts Therapy Teacher Name Role Phone Guerline Randall APRN Primary Care Provider [phone] Reason for Referral * Health Education (Routine) - Closed Specialty Diagnoses / Procedures Referred By Yodit salinas Referred To Contact Nutrition Diagnoses NAFLD (nonalcoholic fatty liver disease) Slime Hammer APRN [facility] [address] [place] [address] Phone: tel: fax: Referral ID Status Reason Start Date Expiration Date V isits Requested Visits Authorized [id number] Closed Specialty Services Required 02/08/2018 02/08/2019 12 12 Reason for Visit * Reason Comments Elevated Hepatic Enzymes * Consultation (Routine) - Closed Specialty Diagnoses / Procedures Referred By Yodit salinas Referred To Contact Gastroenterology Diagnoses Elevated liver enzymes Steatosis of liver Guerline Randall APRN Phone: tel: fax: Matty Lackey MD [address] [place] [address] Phone: tel: fax: Referral ID Status Reason Start Date Expiration Date V isits Requested Visits Authorized [id number] Closed Specialty Services Required 12/27/2017 12/27/2018 1 1 Encounter Details Date Type Department Care Team (Late st Contact Info) Description 02/08/2018 9:00 AM EST Office Visit [facility] [address] [place] [address] Slime Hammer APRN NAFLD (nonalcoholic fatty liver disease) (Primary Dx); Chronic GERD; Encounter for long-term (current) use [...] Sign Reading Time Taken Comments Blood Pressure 118/70 02/08/2018 9:22 AM EST Pulse 85 02/08/2018 9:22 AM EST Temperature 36.4 ??C (97.5 ??F) 02/08/2018 9:22 AM ES T Respiratory Rate - - Oxygen Saturation 91% 02/08/2018 9:22 AM EST Inhaled Oxygen Concentration - - Weight 86.6 kg (191 lb) 02/08/2018 9:22 AM EST Height 157.5 cm (5' 2 ) 02/08/2018 9:22 AM EST Body Mass Index 34.93 02/08/2018 9:22 AM EST documented in this encounter Patient Instructions * Patient Instructions* Slime Hammer APRN - 02/08/2018 10:08 AM EST Images from the original note were not included. Nonalcoholic Fatty Liver Disease Diet Nonalcoholic fatty liver disease is a condition that causes fat to accumulate in and around the liver. The disease makes it harder for the liver to work the way that it should. Following a healthy diet can help to keep nonalcoholic fatty liver disease under control. It can also help to prevent or improve conditions that are associated with the disease, such as heart disease, diabetes, high blood pressure, and abnormal cholesterol levels. Along with regular exercise, this diet: ?? Promotes weight loss. ?? Helps to control blood sugar levels. ?? Helps to improve the way that the body uses insulin. What do I need to know about this diet? ?? Use the glycemic index (GI) to plan your meals. The index tells you how quickly a food will raise your blood sugar. Choose low-GI foods. These foods take a longer time to raise blood sugar. ?? Keep track of how many calories you take in. Eating the right amount of calories will help you to achieve a healthy weight. ?? You may want to follow a Mediterranean diet. This diet includes a lot of vegetables, lean meats or fish, whole grains, fruits, and healthy oils and fats. What foods can I eat? Grains Whole grains, such as whole-wheat or whole-grain breads, crackers, tortillas, cereals, and pasta. Stone-ground whole wheat. Pumpernickel bread. Unsweetened oatmeal. Bulgur. Barley. Quinoa. Brown or wild rice. [place] or whole-wheat flour tortillas. Vegetables Lettuce. Spinach. Peas. Beets. Cauliflower. Cabbage. Broccoli. Carrots. Tomatoes. Squash. Eggplant.Herbs. Peppers. Onions. Cucumbers. [place] sprouts. Yams and sweet potatoes. Beans. Lentils. Fruits Bananas. Apples. Oranges. Grapes. Papaya. [place]. Pomegranate. Kiwi. Grapefruit. Cherries. Meats and Other Protein Sources Seafood and shellfish. Lean meats. Poultry. Tofu. Dairy Low-fat or fat-free dairy products, such as yogurt, cottage cheese, and cheese. Beverages Water. Sugar-free drinks. Tea. Coffee. Low-fat or skim milk. Milk alternatives, such as soy or almond milk. Real fruit juice. Condiments Mustard. Relish. Low-fat, low-sugar ketchup and barbecue sauce. Low-fat or fat- free mayonnaise. Sweets and Desserts Sugar-free sweets. Fats and Oils Avocado. Canola or olive oil. Nuts and nut butters. Seeds. The items listed above may not be a complete list of recommended foods or beverages. Contact your dietitian for more options. What foods are not recommended? Palm oil and coconut oil. Processed foods. Fried foods. Sweetened drinks, such as sweet tea, milkshakes, snow cones, iced sweet drinks, and sodas. Alcohol. Sweets. Foods that contain a lot of salt orsodium. The items listed above may not be a complete list of foods and beverages to avoid. Contact your dietitian for more information. This information is not intended to replace advice given to you by your health care provider. Make sure you discuss any questions you have with your health care provider. Document Released: 08/03/2015 Document Revised: 08/24/2016 Document Reviewed: 04/13/2015 [employer] Interactive Patient Education ?? 2018 [employer]. Fatty Liver Fatty liver, also called hepatic steatosis or steatohepatitis, is a condition in which too much fathas built up in your liver cells. The liver removes harmful substances from your bloodstream. It produces fluids your body needs. It also helps your body use and store energy from the food you eat. In many cases, fatty liver does not cause symptoms or problems. It is often diagnosed when tests are being done for other reasons. However, over time, fatty liver can cause inflammation that may leadto more serious liver problems, such as scarring of the liver (cirrhosis). What are the causes? Causes of fatty liver may include: ?? Drinking too much alcohol. ?? Poor nutrition. ?? Obesity. ?? Asher syndrome. ?? Diabetes. ?? Hyperlipidemia. ?? . ?? Certain drugs. ?? Poisons. ?? Some viral infections. What increases the risk? You may be more likely to develop fatty liver if you: ?? Abuse alcohol. ?? Are . ?? Are overweight. ?? Have diabetes. ?? Have hepatitis. ?? Have a high triglyceride level. What are the signs or symptoms? Fatty liver often does not cause any symptoms. In cases where symptoms develop, they can include: ?? Fatigue. ?? Weakness. ?? Weight loss. ?? Confusion. ?? Abdominal pain. ?? Yellowing of your skin and the white parts of your eyes (jaundice). ?? Nausea and vomiting. How is this diagnosed? Fatty liver may be diagnosed by: ?? Physical exam and medical history. ?? Blood tests. ?? Imaging tests, such as an ultrasound, CT scan, or MRI. ?? Liver biopsy. A small sample of liver tissue is removed using a needle. The sample is then looked at under a microscope. How is this treated? Fatty liver is often caused by other health conditions. Treatment for fatty liver may involve medicines and lifestyle changes to manage conditions such as: ?? Alcoholism. ?? High cholesterol. ?? Diabetes. ?? Being overweight or obese. Follow these instructions at home: ?? Eat a healthy diet as directed by your health care provider. ?? Exercise regularly. This can help you lose weight and control your cholesterol and diabetes. Talk to your health care provider about an exercise plan and which activities are best for you. ?? Do not drink alcohol. ?? Take medicines only as directed by your health care provider. Contact a health care provider if: You have difficulty controlling your: ?? Blood sugar. ?? Cholesterol. ?? Alcohol consumption. Get help right away if: ?? You have abdominal pain. ?? You have jaundice. ?? You have nausea and vomiting. This information is not intended to replace advice given to you by your health care provider. Make sure you discuss any questions you have with your health care provider. Document Released: 05/04/2006 Document Revised: 08/24/2016 Document Reviewed: 07/29/2014 Inductly Interactive Patient Education ?? 2018 [employer]. Avoid NSAIDs (Non-Steroid Anti-Inflammatory Drugs) products. Some examples of these medications are ?? Ibuprofen (Advil, Midol, Motrin) ?? Naproxen (Aleve) ?? BC Powder ?? Exedrin ?? Diclofenac (voltaren) ?? Indocin (indomethacin) ?? Mobic (meloxicam) Talk to your doctor/medical provider for alternative approach for pain management such as physical therapy, exercises, muscle relaxants, topical lidocaine patch (i.e Camden Armstrong) etc. You can take acetaminophen (i.e. Tylenol) for pain, but at most 4-5 tablets (325 mg tablet) a day. Take NSAIDS only as directed by your doctor or medical provider. Should you need to continue any NSAID products on a regular basis, please let me know so I can advise you taking medications to protect your stomach from having ulcer. Be be aware of long-term and frequent NSAIDS' potential side effects. These include, but limited to, stomach ulcer, bleeding risks, and kidney injury. Take the medication with food. Call me if you have vomiting, abdominal pain, or black/bloody stools. documented in this encounter Progress Notes * Slime Hammer APRN - 02/08/2018 9:00 AM EST Images from the original note were not included. GASTROENTEROLOGY OUTPATIENT NEW PATIENT NOTE Patient: GERTRUDIS DALY : 1955 Date of Service: 02/08/2018 Dear Guerline Saavedra APRN Thank you for your referral of this patient for evaluation of Elevated Hepatic Enzymes CC: Elevated Hepatic Enzymes Assessment/Plan ASSESSMENT & PLANS Gertrudis was seen today for elevated hepatic enzymes. Diagnoses and all orders for this visit: NAFLD (nonalcoholic fatty liver disease) - Ambulatory Referral to Nutrition Services Chronic GERD Encounter for long-term (current) use of NSAIDs - Esophagogastroduodenoscopy; Future - omeprazole (priLOSEC) 40 MG capsule; Take 1 capsule by mouth Every Morning. Take first thing in the morning on an empty stomach. Wait at least 30 min to 1hr before eating. ?? Pt is counseled on avoiding NSAIDS products. I encouraged pt to discuss with PCP to seek alternative approach for mgt such as physical therapy, exercises, muscle relaxants, etc. Pt is given precaution should pt continue any NSAID product. Pt was advised that NSAIDS' potential side effects include, but limited to, gastrointestinal irritation including bleeding, thromboycytopenia, and kidney injuries. Pt was asked to take the medication with food and to stop if pt experiences any GI upset. Pt is to call me if experiencing vomit, abdominal pain, or black/bloody stools. Follow Up:Return in about 3 months (around 05/11/2018). DISCUSSION: The above plan was delineated in details with patient and all questions and concerns were answered. Patient is also given contact information. Patient is to return as scheduled or sooner if new problems arise Subjective SUBJECTIVE History of Present Illness Ms. Gertrudis Daly is a 62 y.o. female who presents to the clinic today for an evaluation of Elevated Hepatic Enzymes 184 lbs-187 lbs then 197 lbs over a period of 2 months Wants to eat healthy, but does not know how. New meds: Did not have have abd Colonoscopy, done in [facility] in [place] about few yrs ago. Reports of having polyp, butnot due for it yet. LUQ constant. Onset since starting Burning Postprandial bloating Hx of DM2 and HLP, but pt has difficulty tolerating different meds. Has not been consistent w/ medsfor DM2 and HLP Already a saw a health and safety specialist Hx of back surgeries x 5 ROS:Review of Systems Constitutional: Positive for fatigue and unexpected weight change (gain). Negative for activity change, appetite change and fever. HENT: Negative for hearing loss, trouble swallowing and voice change. Eyes: Negative for visual disturbance. Respiratory: Negative for cough, choking, chest tightness and shortness of breath. Cardiovascular: Negative for chest pain. Gastrointestinal: Positive for abdominal distention (bloating), abdominal pain and nausea. Negativefor anal bleeding, blood in stool, constipation, diarrhea, rectal pain and vomiting. Heartburn Endocrine: Negative for polydipsia and polyphagia. Genitourinary: Positive for dysuria (burning) and hematuria. Musculoskeletal: Positive for joint swelling. Negative for gait problem. Skin: Negative for color change and rash. Allergic/Immunologic: Negative for food allergies. Neurological: Negative for dizziness, seizures and speech difficulty. Hematological: Negative for adenopathy. Psychiatric/Behavioral: Negative for confusion. Subjective PAST MED HX: Pt has a past medical history of Anxiety; Benign essential hypertension; Cervical discdisorder; Chronic pain disorder; Colon polyps; Complication of device; Decreased libido; Dizziness;Encounter for long-term (current) use of medications; Extremity pain; Fatigue; Hip pain; History of alopecia; History of backache; History of colonoscopy; History of diabetes mellitus; History of insomnia; History of mastoiditis; History of migraine headaches; History of urinary stone; Infection ofkidney; Insomnia; Joint pain; Kidney infection; Low back pain; Lumbar radiculopathy; Lumbar radiculopathy; Lumbosacral disc disease; Migraine; Myofascial pain syndrome; Neck pain; Palpitations; Sleepapnea; Spinal cord stimulator status; Stress reaction, emotional; Urinary incontinence; Urinary tract infection; Visit for screening mammogram; and Vitamin D deficiency. PAST SURG HX: [...] metformin; penicillins; pioglitazone; and spironolactone. MEDS: ??? acetaminophen (TYLENOL) 500 MG tablet, Take 1 tablet by mouth 2 (Two) Times a Day. Every 4 to 6 hours as needed, Disp: , Rfl: ??? albuterol [...] 42.5 g, Rfl: 5 ??? exenatide er (BYMARIANNON BCISE) 2 MG/0.85ML auto-injector injection, Inject 0.85 [...] Daily., Disp: , Rfl: ??? omeprazole (priLOSEC) 20 MG capsule, Take 1 capsule by mouth Daily., Disp: 30 capsule, Rfl: 5 ??? Praluuent 75 mg injection every 14 days (for cholesterol med( ?? rOPINIRole (REQUIP) 0.25 MG tablet, Take 1 [...] hs prn, Disp: 180 tablet, Rfl: 2 Vitamin B12 and Vitamin D Fibercorn Lab Results Component Value Date WBC 7.23 12/26/2017 WBC 5.09 05/08/2016 WBC 5.35 05/07/2015 EOSABS 0.18 12/26/2017 EOSABS 0.17 10/02/2013 EOSABS 0.15 09/18/2013 PLT 253 12/26/2017 PLT 229 05/08/2016 PLT 231 05/07/2015 Lab Results Component Value Date HGB 14.4 12/26/2017 HGB 15.5 05/08/2016 HGB 14.8 05/07/2015 HCT 44.8 (H) 12/26/2017 HCT 47.0 (H) 05/08/2016 HCT 43.8 05/07/2015 Lab Results Component Value Date MCV 90.9 12/26/2017 MCV 92.0 05/08/2016 MCV 88.8 05/07/2015 RDW 13.1 12/26/2017 RDW 13.3 05/08/2016 MCHC 32.1 12/26/2017 MCHC 33.0 05/08/2016 MCHC 33.8 05/07/2015 Lab Results Component Value Date NA 140 01/30/2018 K 4.8 01/30/2018 CL 103 01/30/2018 CO2 29.0 01/30/2018 BUN 21 01/30/2018 CREATININE 0.80 01/30/2018 GLUCOSE 94 01/30/2018 CALCIUM 9.9 01/30/2018 ANIONGAP 8.0 01/30/2018 Liver Profile Lab Results Component Value Date AST 74 (H) 01/30/2018 AST 125 (H) 12/14/2017 AST 38 (H) 05/08/2016 AST 27 05/07/2015 AST 28 12/14/2014 AST 37 (H) 04/09/2014 Lab Results Component Value Date ALT 114 (H) 01/30/2018 ALT 132 (H) 12/14/2017 ALT 67 (H) 05/08/2016 ALT 38 05/07/2015 ALT 37 12/14/2014 ALT 51 (H) 04/09/2014 Lab Results Component Value Date ALKPHOS 153 (H) 01/30/2018 ALKPHOS 149 (H) 12/14/2017 ALKPHOS 115 (H) 05/08/2016 ALKPHOS 127 (H) 05/07/2015 ALKPHOS 120 (H) 12/14/2014 GGT 59 (H) 12/26/2017 Lab Results Component Value Date BILITOT 0.5 01/30/2018 BILITOT 0.4 12/14/2017 BILITOT 0.5 05/08/2016 ALBUMIN 4.70 01/30/2018 ALBUMIN 4.34 12/14/2017 ALBUMIN 4.40 05/08/2016 PROTEINTOT 7.2 01/30/2018 INR 0.99 10/02/2013 INR 1.00 09/18/2013 INR 1.02 04/29/2013 PROTIME 10.6 10/02/2013 PROTIME 10.7 09/18/2013 PROTIME 10.9 04/29/2013 PLT 253 12/26/2017 PLT 229 05/08/2016 PLT 231 05/07/2015 Lab Results Component Value Date LIPASE 55 (H) 12/14/2017 AMYLASE 28 (L) 12/14/2017 Co-morbidities Lab Results Component Value Date HGBA1C 7.7 12/14/2017 HGBA1C 8.9 05/09/2017 HGBA1C 7.9 01/04/2017 HGBA1C 7.9 08/09/2016 HGBA1C 6.9 02/02/2016 HLP Lab Results Component Value Date CHOL 284 (H) 12/14/2017 CHOL 251 (H) 09/12/2017 CHOL 290 (H) 05/08/2016 CHLPL 285 (H) 05/07/2015 CHLPL 280 (H) 04/09/2014 TRIG 452 (H) 12/14/2017 TRIG 288 (H) 09/12/2017 TRIG 232 (H) 05/08/2016 TRIG 251 (H) 05/07/2015 TRIG 225 (H) 04/09/2014 HDL 49 12/14/2017 HDL 46 09/12/2017 HDL 60 05/08/2016 HDL 56 05/07/2015 HDL 58 04/09/2014 LDL 229 (H) 12/14/2017 LDL 206 (H) 09/12/2017 LDL 200 (H) 05/08/2016 LDL 212 (H) 05/07/2015 LDL 226 (H) 04/09/2014 Thyroid/Calcium Panel (Normal TSH: 0.350 - 5.350 mIU/mL) Lab Results Component Value Date TSH 1.465 05/22/2017 TSH 2.513 05/08/2016 TSH 1.752 12/14/2014 FREET4 1.30 05/22/2017 PTH 30.9 12/26/2017 CALCIUM 9.9 01/30/2018 CALCIUM 9.7 12/14/2017 CALCIUM 9.4 09/12/2017 Viral Hepatitis Lab Results Component Value Date HEPAIGM Non-Reactive 12/26/2017 HEPBSAG Non-Reactive 12/26/2017 HEPBIGMCORE Non-Reactive 12/26/2017 HEPCVIRUSABY Non-Reactive 12/26/2017 EXAMINATION: US ABDOMEN, COMPLETE-12/26/2017: FINDINGS: Limited views of the pancreas are [...] infiltration or other form of parenchymal disease. Wt Readings from Last 10 Encounters: 02/08/18 86.6 kg (191 lb) 01/30/18 86.3 kg (190 lb 3.2 oz) 12/14/17 86.6 kg (191 lb) 12/14/17 86.7 kg (191 lb 1 oz) 09/12/17 87.1 kg (192 lb) 09/12/17 87.1 kg (192 lb) 05/22/17 84.1 kg (185 lb 6.4 oz) 05/09/17 84.4 kg (186 lb) 05/07/17 85.3 kg (188 lb) 03/28/17 86.6 kg (191 lb) body mass index is 34.93 kg/m??.,Temp: 97.5 ??F (36.4 ??C),BP: 118/70,Heart Rate: 85 Physical Exam General Well developed; well nourished; no acute distress. ENT Oral mucosa pink and moist without thrush or lesions. Neck Neck supple; trachea midline. No thyromegaly Resp CTA; no rhonchi, rales, or wheezes. Respiration effort normal CV RRR; normal S1, S2; no M/R/G. No lower extremity edema GI Abd soft, NT, ND, normal active bowel sounds. No HSM. No abd hernia Skin No rash; no lesions; no bruises. Skin turgor normal Musc No clubbing; no cyanosis. Gait steady Psych Oriented to time, place, and person. Appropriate affect Thank you kindly for allowing me to be part of this patient???s care. Pt care team: Slime Hammer APRN & ADDI Carr 189:25 AM [facility]--Gastroenterology [phone] CC: Guerline Saavedra APRN [address] / [facility] [address] FAX:[phone] documented in this encounter Plan of Treatment Upcoming Encounters Date Type Department Care Team (Late st Contact Info) Description 03/13/2024 2:45 PM EST Office Visit [facility] [address] [place] [address] [place] [address] Pj Ace MD [address] [place] [address] Scheduled Referrals Name Type Priority Associated Diagnoses Order Schedule Ambulatory Referral to Nutrition Services Outpatient Referral Routine NAFLD (nonalcoholic fatty liver disease) Ordered: 02/08/2018 documented as of this encounter Visit Diagnoses Diagnosis NAFLD (nonalcoholic fatty liver disease)- Primary Chronic GERD Encounter for long-term (current) use of NSAIDs Encounter for long-term (current) use of non-steroidal anti-inflammatories documented in this encounter Care Teams Manual Arts Therapy Teacher Relationship Specialty Start Date End Date Guerline Randall APRN [address] [place] [address] PCP - General Family Medicine 12/19/17 04/11/18 documented as of this encounter
--- OUTSIDE RECORDS SUMMARY | 2024-02-20 09:14 | XMS_ITS | Encounter Summary ---
[facility] Address [address] [place] [address] Care Team Providers Care Occupational Health And Safety Manager Name Role Phone Guerline Randall APRN Primary Care Provider Reason for Visit * Diagnostic Medical (Routine) - Canceled Specialty Diagnoses / Procedures Referred By Contac t Referred To Contact Gastroenterology Diagnoses Chronic GERD Encounter for long-term (current) use of NSAIDs Procedures Esophagogastroduodenosc Slime Junior, Matty Stahl MD [address] [place] [address] Phone: tel: fax: Referral ID Status Reason Start Date Expiration Date V isits Requested Visits Authorized [id number] Canceled 02/08/2018 02/08/2019 1 1 Encounter Details Date Type Department Care Team (Late st Contact Info) Description 02/25/2018 12:30 PM EST Outside Facility Service [facility] [address] [phone] Matty Lackey MD [address] [place] [address] Social History Tobacco Use Types Packs/Day Years [...] Visit [facility] [address] [place] [address] [place] [phone] Pj Ace MD [address] [facility] [address] [place] [address] documented as of this encounter Visit Diagnoses Not on filedocumented in this encounter Care Teams Occupational Health And Safety Manager Relationship Specialty Start Date End Date Guerline Randall APRN [address] [place] [address] PCP - General Family Medicine 12/19/17 04/11/18 documented as of this encounter
--- OUTSIDE RECORDS SUMMARY | 2024-02-20 09:14 | XMS_ITS | Encounter Summary ---
[facility] Address [address] [place] [id number] Care Team Providers Care Bell Staff Name Role Phone Guerline Randall APRN Primary Care Provider [phone] Reason for Referral * Diagnostic Imaging (Routine) - Closed Specialty Diagnoses / Procedures Referred By Contac t Referred To Contact Radiology Diagnoses Dyspepsia Nausea Procedures NM Gastric Emptying Slime Hammer APRN [facility] [address] [facility] [address] [place] [address] Phone: tel: Referral ID Status Reason Start Date Expiration Date Visits Re quested Visits Authorized [id number] Closed 03/09/2018 03/09/2019 1 1 Encounter Details Date Type Department Care Team (Late st Contact Info) Description 03/09/2018 Telephone [facility] [address] [facility] [address] [place] [address] Slime Hammer APRN Social History [...] encounter Miscellaneous Notes * Telephone Encounter - C, ADDI Eugene - 03/11/2018 10:11 AM EST Called patient and gave biopsy results. Patient voiced understanding. * Telephone Encounter - Slime Hammer APRN - 03/09/2018 10:48 AM EST Images from the original note were not included. Attempting to call pt. No answer. Left VM. Metzger If pt calls back, pls let pt know that EGD's bx shows gastritis (inflammation of the stoma), but noH. pylori infection or peptic ulcer. Dr. Lackey recommends gastric emptying study. Order placed * Telephone Encounter - Slime Hammer APRN - 03/09/2018 10:48 AM EST ----- Message from Matty Lackey MD sent at 03/01/2018 11:58 AM EST ----- Slime: There was some evidence of reactive gastritis. Consider 4 hour gastric empty study given the clinical history. documented in this encounter Plan of Treatment Upcoming Encounters Date Type Department Care Team (Late st Contact Info) Description 03/13/2024 2:45 PM EST Office Visit [facility] [address] [place] [address] [place] [address] Pj Ace MD [address] [facility] [address] [place] [address] documented as of this encounter Results * NM Gastric Emptying [...] Dr. Nelson Desouza MD. Slime Hammer APRN [facility] NM ORDERABLES Fi nal Result documented in this encounter Visit Diagnoses Diagnosis Dyspepsia- Primary Dyspepsia and other specified disorders of function of stomach Nausea Nausea alone Dyspepsia Dyspepsia and other specified disorders of function of stomach Nausea Nausea alone LFT elevation documented in this encounter Care Teams Bell Staff Relationship Specialty Start Date End Date Guerline Randall APRN [address] [address] PCP - General Family Medicine 12/19/17 04/11/18 documented as of this encounter
--- OUTSIDE RECORDS SUMMARY | 2024-02-20 09:14 | XMS_ITS | Encounter Summary ---
[facility] Address [address] [place] [address] Care Team Providers Care Car Rental Agency Manager Name Role Phone Madelaine Norman APRN Primary Care Provider [phone] Encounter Details Date Type Department Care Team (Late st Contact Info) Description 05/29/2017 Telephone [facility] INTERNAL MEDICINE [address] [place] [address] Roc Tracey PA-C [address] [place] [address] Social History Tobacco Use Types Packs/Day [...] Encounter - Ana Paula Delgado MA - 05/30/2017 9:34 AM EST Patient notified, asked that I send to [facility] to make sure she can take and have no issue with it.E- Scripted with 3 rr Patient will notify when ok to send to Mail Order. * Telephone Encounter - Ana Paula Delgado MA - 05/30/2017 8:57 AM EST Please see the list of RX that the patient's Insurance will cover that she can afford. I am happy to send in whatever you decried * Telephone Encounter - Michael Monae - 05/29/2017 5:19 PM EST COVERED MED LIST -ACTOS -ONGLYZA -GLYBURIDE -GLIPIZIDE -GLIMIPERIDE * Telephone Encounter - Ana Paula Delgado MA - 05/29/2017 4:29 PM EST Returned patient call, she was at [facility] and forgot her list, stated she would call back once she got home and let us know the names on the Medicaions that her Insurance WOULD cover! * Telephone Encounter - Ariella Davis - 05/29/2017 3:10 PM EST PATIENT SPOKE WITH HER INSURANCE COMPANY IN REGARDS TO HER DIABETIC MEDICATION AND WOULD LIKE TO GET A CALL BACK AT [phone] documented in this encounter Plan of Treatment Upcoming Encounters Date Type Department Care Team (Late st Contact Info) Description 03/13/2024 2:45 PM EST Office Visit [facility] CARDIOLOGY [address] [place] [address] [place] [address] Pj Ace MD [address] [facility] [address] [place], [place] [id number] documented as of this encounter Visit Diagnoses Not on filedocumented in this encounter Care Teams Car Rental Agency Manager Relationship Specialty Start Date End Date Madelaine Norman APRN [address] [address] PCP - General Internal Medicine 12/13/16 09/07/17 documented as of this encounter
--- OUTSIDE RECORDS SUMMARY | 2024-02-20 09:14 | XMS_ITS | Encounter Summary ---
[facility] Address [address] [place] [address] Care Team Providers Care Legal Advisor Name Role Phone Unavailable Primary Care Provider Unavailabl e Reason for Visit * Reason Comments Diabetes Follow Up Encounter Details Date Type Department Care Team (Late st Contact Info) Description 09/12/2017 12:00 PM EDT Office Visit [facility] ENDOCRINOLOGY [address] [facility] [address] [place] [address] Roc Tracey PA-C [address] [facility] [address] [place], [place] [id number] Mixed hyperlipidemia (Primary Dx); Type 2 diabetes mellitus without complication, without [...] Time Taken Comments Blood Pressure 124/64 09/12/2017 12:27 PM EDT Pulse - - Temperature - - Respiratory Rate - - Oxygen Saturation 95% 09/12/2017 12:27 PM EDT Inhaled Oxygen Concentration - - Weight 87.1 kg (192 lb) 09/12/2017 12:27 PM EDT Height 157.5 cm (5' 2 ) 09/12/2017 12:27 PM EDT Body Mass Index 35.12 09/12/2017 12:27 PM EDT documented in this encounter Progress Notes * Roc Tracey PA-C - 09/12/2017 12:00 PM EDT Chief Complaint F/u for Diabetes Mellitus. HPI Gertrudis Gonzalez is a 61 y.o. female with chronic back pain and HTN- on multiple antihypertensives followed by cardiology in [place], who is here today for f/u of Diabetes Mellitus type 2. The initial diagnosis of diabetes was made approximately 2015. Today, BG 219 C/o fatigue, hair loss and thinning, feels [...] discussed Current diabetic medications include: Januvia 100mg qd- may be causing swelling, didn't not take last night and swelling improved today Glimepiride 4mg QD Bydureon- stopped taking about 3 months ago as her sugars were getting too low ACEI/ARB: losartan-hctz Statin: intolerant to statins Past [...] g, Rfl: 5 ??? exenatide er (BYDUREON BCI) 2 MG/0.85ML auto-injector injection, Inject 0.85 mL under the skin 1 (One) Time Per Week., Disp: 4 pen, Rfl: 6 ??? hydrochlorothiazide (HYDRODIURIL) 25 MG tablet, 1/2 [...] BEDTIME NEEDED, Disp: 180 tablet, Rfl: 2 Review of [...] patient is not nervous/anxious. Physical Exam BP 124/64 Ht 157.5 cm (62 ) Wt 87.1 kg (192 lb) LMP (LMP Unknown) SpO2 95% BMI 35.12 kg/m?? Body mass index is [...] 05/09/2017 HGBA1C 7.9 01/04/2017 HGBA1C 7.9 08/09/2016 No visits with results within 1 Month(s) from this visit. Latest known visit with results is: Office Visit on 05/22/2017 Component Date Value Ref Range Status ??? Creatinine, Urine 05/22/2017 153.7 Not Estab. mg/dL Final ??? Microalbumin, Urine 05/22/2017 8.0 Not Estab. ug/mL Final ??? Microalbumin/Creatinine Ratio 05/22/2017 5.2 0.0 - 30.0 Final ??? TSH 05/22/2017 1.465 0.350 - 5.350 mIU/mL Final ??? Free T4 05/22/2017 1.30 0.89 - 1.76 ng/dL Final ??? Glucose 05/22/2017 209* 70 - 130 mg/dL Final No images are attached to the encounter or orders placed in the encounter. Xr Spine Thoracic 1 View Result Date: 03/22/2017 Spinal cord stimulator terminating at the T7 superior endplate level. E: 03/22/2017 This report was finalized on 03/22/2017 5:[address] Jann Stover. Assessment / Plan Gertrudis was seen today for diabetes. Diagnoses and all orders for this visit: Mixed hyperlipidemia - Lipid Panel Type 2 diabetes mellitus without complication, without long-term current use of insulin - exenatide er (BYDUREON BCISE) 2 MG/0.85ML auto-injector injection; Inject 0.85 mL under the skin 1 (One) Time Per Week. Diabetes Mellitus 2 is under inadequate control. -A1c 6.7, down from 8.9 05/2017 -resume bydureon bcise 2mg sc weekly. Reports hypoglycemia before she stopped taking, but suspect cause was glimepiride, not Bydureon. No hx of pancreatitis. No personal or fam hx of thyroid ca or MEN2. -dc glimepiride, januvia -intolerant to metformin -intolerant to statins -bring meter to f/u- check sugar fasting and 2h pp -she was instructed on how to use bydureon. She administered her first dose during visit. 1. Diet: 3-4 carb servings per meal [...] 05/2018 5. Education performed during this visit: long term care phlebotomist diabetic complications discussed. , annual eye examinations [...] up: Return in about 3 months (around 12/13/2017). Discussed the nature of the disease including, [...] annual basis. 20 min of 30 min [id number] visit time spent for coordination of care and counselling regarding identified problems as outlined in the objective, assessment and discussion portions of the documentation. Roc Tracey PA-C documented in this encounter Plan of Treatment Upcoming Encounters Date Type Department Care Team (Late st Contact Info) Description 03/13/2024 2:45 PM EST Office Visit [facility] CARDIOLOGY [address] [place] [address] Pj Ace MD [address] [facility] [address] [place] [address] documented as of this encounter Procedures Procedure Name Priority Date/Time Associated Diagnosis Comments LIPID PANEL Routine 09/12/2017 12:55 PM EDT Mixed hyperlipidemia documented in this encounter Results * (ABNORMAL) Lipid Panel (09/12/2017 12:55 PM EDT) Total Cholesterol 251(H) 0 - 200 mg/dL 09/12/2017 5:19 PM EDT [facility] Triglycerides 288(H) 0 - 150 mg/dL 09/12/2017 5:19 PM EDT [facility] HDL Cholesterol 46 40 - 60 mg/dL 09/12/2017 5:19 PM EDT [facility] LDL Cholesterol 206(H) 0 - 130 mg/dL 09/12/2017 5:19 PM EDT [facility] Blood Venipuncture / Unknown 09/12/2017 12:55 PM EDT 09/12/2017 12:55 PM EDT [facility] - 09/12/2017 5:19 PM EDT Cholesterol Reference Ranges: Desirable ? [...] mg/dL Very High ? > 189 mg/dL us Roc VILLAGOMEZ-C LAB BLOOD ORDERABLES Final Result [facility]
[address] [place] [id number], documented in this encounter Visit Diagnoses Diagnosis Mixed hyperlipidemia- Primary Type 2 diabetes mellitus without complication, without long-term current use of insulin documented in this encounter
--- OUTSIDE RECORDS SUMMARY | 2024-02-20 09:14 | XMS_ITS | Encounter Summary ---
[facility] Address [address] [place] [id number] Care Team Providers Care Water Quality Tester Name Role Phone Unavailable Primary Care Provider Unavailabl e Reason for Visit * Reason Comments Med Refill Encounter Details Date Type Department Care Team (Late st Contact Info) Description 09/12/2017 Refill [facility] ENDOCRINOLOGY [address] [place] [address] Roc Tracey PA-C [address] [place] [address] Social History Tobacco Use Types Packs/Day Years [...] [facility] [address] [place] [address] [address] Pj Ace MD [address] [place] [address] documented as of this encounter Visit Diagnoses Not on filedocumented in this encounter
--- OUTSIDE RECORDS SUMMARY | 2024-02-20 09:14 | XMS_ITS | Encounter Summary ---
[facility] Address [address] [place] [id number] Care Team Providers Care Signals Collection Technician Name Role Phone Guerline Randall APRN Primary Care Provider [phone] Reason for Visit * Reason Onset Date Comments Med Refill 02/04/2018 Encounter Details Date Type Department Care Team (Late st Contact Info) Description 02/04/2018 Refill [facility] PAIN MANAGEMENT [address] [facility] [address] [place] [phone] Guero Lunsford PA-C Social History Tobacco Use Types Packs/Day Years [...] CENTER CARDIOLOGY [address] [place] [address] Pj Ace MD [address] [facility] [address] [place] [address] documented as of this encounter Visit Diagnoses Not on filedocumented in this encounter Care Teams Signals Collection Technician Relationship Specialty Start Date End Date Guerline Randall APRN [address] [facility] [address] [place] [id number] PCP - General Family Medicine 12/19/17 04/11/18 documented as of this encounter
--- OUTSIDE RECORDS SUMMARY | 2024-02-20 09:14 | XMS_ITS | Encounter Summary ---
[facility] [address] [place] [address] Care Team Providers Care Stitching Machine Operator Name Role Phone Guerline Randall APRN Primary Care Provider Encounter Details Date Type Department Care Team (Late st Contact Info) Description 12/25/2017 Telephone [facility] INTERNAL MEDICINE [address] [place] [address] Roc Tracey PA-C [address] [place] [address] Social History Tobacco Use Types Packs/Day [...] Telephone Encounter - Ambar Morrow MA - 12/26/2017 2:46 PM EDT Spoke with pt in the office * Telephone Encounter - Ambar Morrow MA - 12/26/2017 1:25 PM EDT LM on VM with information that was left on pervious VM * Telephone Encounter - Shikha Neumann - 12/26/2017 11:54 AM EDT PT WAS RETURNING A CALL SHE RECEIVED FROM OUR OFFICE AND WOULD LIKE TO GET A CALL BACK * Telephone Encounter - Ambar Morrow MA - 12/25/2017 4:32 PM EDT LM on that I went through med list to 2012 and I do not see any statins on the list. Advised herto call with any info she may have to when and where she may have gotten the medication. The PA will not will not be approved if I can not show that she has in fact tried statins and is intolerant. * Telephone Encounter - Ese Pride - 12/25/2017 2:57 PM EDT Patient returned call, states she has been seen at this office for long time and any medication should be in her chart. She does not remember the names of the medications. * Telephone Encounter - Ambar Morrow MA - 12/25/2017 8:27 AM EDT LM on asking for a return call. I need to know what statins she has tried and for how long alongwith side effects in order to proceed with PA for Praluent. documented in this encounter Plan of Treatment Upcoming Encounters Date Type Department Care Team (Late st Contact Info) Description 03/13/2024 2:45 PM EST Office Visit [facility] CARDIOLOGY [address] [facility] [address] [place] [address] Pj Ace MD [address] [place] [address] documented as of this encounter Visit Diagnoses Not on filedocumented in this encounter Care Teams Stitching Machine Operator Relationship Specialty Start Date End Date Guerline Randall APRN [address] [facility] [address] [place] [address] PCP - General Family Medicine 12/19/17 04/11/18 documented as of this encounter
--- OUTSIDE RECORDS SUMMARY | 2024-02-20 09:14 | XMS_ITS | Encounter Summary ---
Author Organization [facility] Address [address] [place] [address] Care Team Providers Care Home Visitor Home Base Head Start Name Role Phone Madelaine Norman OB SCRUB TECH Primary Care Provider [phone] Encounter Details Date Type Department Care Team (Late st Contact Info) Description 05/11/2017 Telephone [facility] INTERNAL MEDICINE [address] [place] [address] Madelaine Norman, OB SCRUB TECH [address] [id number] Social History Tobacco Use Types Packs/Day Years [...] Encounter - Ana Paula Delgado MA - 05/11/2017 10:10 AM EST FYI * Telephone Encounter - Michael Monae - 05/11/2017 9:49 AM EST 169/98 THE BLOOD PRESSURE MEDICATION PRESCRIBED IS CAUSING PT TO LOOSE BREATHE. SHE WAS ADVISED TO GO TO THE ER documented in this encounter Plan of Treatment Upcoming Encounters Date Type Department Care Team (Late st Contact Info) Description 03/13/2024 2:45 PM EST Office Visit [facility] CARDIOLOGY [address] [place] [address] Pj Ace MD [address] [facility] [address] [place] [address] documented as of this encounter Visit Diagnoses Not on filedocumented in this encounter Care Teams Home Visitor Home Base Head Start Relationship Specialty Start Date End Date Madelaine Norman, VASILE [address] [facility] [address] [place] [address] PCP - General Internal Medicine 12/13/16 09/07/17 documented as of this encounter
--- OUTSIDE RECORDS SUMMARY | 2024-02-20 09:14 | XMS_ITS | Encounter Summary ---
[facility] Address [address] [place] [address] Care Team Providers Care Numerical Analysis Group Manager Name Role Phone Madelaine Norman APRN Primary Care Provider [phone] Encounter Details Date Type Department Care Team (Late st Contact Info) Description 05/28/2017 Telephone [facility] INTERNAL MEDICINE [address] [place] [address] Roc Tracey PA-C [address] [place] [address] Social History Tobacco Use Types Packs/Day [...] - Ana Paula Delgado MA - 05/28/2017 3:32 PM EST I contacted Pharmacy and she stated that she has No idea what RX will be covered unless we send it in. > I then contacted patient and asked her to contact her Insurance and ask them WHAT RX they would cover and if they are requiring a PA to send it to us. I gave her our direct Fax number to giveto them.. She stated that they would not cover new RX. I advised her that that could not be true asas life goes on, there will or might be NEW rx that people will be on and they WILL need to cover them. She stated she would contact her Insurance and give them the information and let us know if shehas any additional ?? * Telephone Encounter - Ana Paula Delgado MA - 05/28/2017 2:11 PM EST Please see patient message * Telephone Encounter - Scott Pollard - 05/28/2017 1:59 PM EST PT CALLED IN AND ASKED TO SPEAK WITH HER PHYSICIAN. STATES SHE WAS HERE FOR A RECENT DOCTORS APPT AND DR. SOFIA PRESCRIBED HER AN INSURANCE CARD FOR HER MEDICATION THAT WAS PRESCRIBED. STATES THE TOTAL COST IS STILL OVER $500.00 AND CAN'T AFFORD THAT. WANTS TO KNOW IF THERE IS ANOTHER OPTION THATWOULD COST LESS. RECEIVED A PHONE CALL FROM OUR OFFICE THIS AFTERNOON AND WAS RETURNING CALL. documented in this encounter Plan of Treatment Upcoming Encounters Date Type Department Care Team (Late st Contact Info) Description 03/13/2024 2:45 PM EST Office Visit [facility] CARDIOLOGY [address] [place] [address] [place] [address] Pj Ace MD [address] [facility] [address] [place] [address] documented as of this encounter Visit Diagnoses Not on filedocumented in this encounter Care Teams Numerical Analysis Group Manager Relationship Specialty Start Date End Date Madelaine Norman APRN [address] [facility] [address] [place] [address] PCP - General Internal Medicine 12/13/16 09/07/17 documented as of this encounter
--- OUTSIDE RECORDS SUMMARY | 2024-02-20 09:15 | XMS_ITS | Encounter Summary ---
Author Organization [facility] ystem Address [address] [place] [address] Care Team Providers Care Salesperson Hosiery Name Role Phone Madelaine Norman APRN Primary Care Provider [phone] Reason for Visit * Reason Comments URI Cough, fever. sx sta rted 3 days. Encounter Details Date Type Department Care Team ([facility] st Contact Info) Description 03/28/2017 3:15 PM EST Office Visit [facility] INTER[facility] MEDICINE [address] [place] [address] Evelyn Stephenson, STRAIGHTENER HAND [address] [address] Acute frontal sinusitis, recurrence not specified (Primary Dx); Bronchitis Social History Tobacco Use Types Packs/Day [...] Sign Reading Time Taken Comments Blood Pressure 148/74 03/28/2017 3:24 PM EST Pulse 81 03/28/2017 3:24 PM EST Temperature 36.9 ??C (98.5 ??F) 03/28/2017 3:24 PM ES T Respiratory Rate - - Oxygen Saturation 98% 03/28/2017 3:24 PM EST Inhaled Oxygen Concentration - - Weight 86.6 kg (191 lb) 03/28/2017 3:24 PM EST Height 157.5 cm (5' 2 ) 03/28/2017 3:24 PM EST Body Mass Index 34.93 03/28/2017 3:24 PM EST documented in this encounter Patient Instructions * Patient Instructions* Evelyn StephensonDanny, STRAIGHTENER HAND - 03/28/2017 3:15 PM EST Images from the original note were not included. Acute Bronchitis Bronchitis is inflammation of the airways that extend from the windpipe into the lungs (bronchi). The inflammation often causes mucus to develop. This leads to a cough, which is the most common symptom of bronchitis. In acute bronchitis, the condition usually develops suddenly and goes away over time, usually in a couple weeks. Smoking, allergies, and asthma can make bronchitis worse. Repeated episodes of bronchitis may cause further lung problems. CAUSES Acute bronchitis is most often caused by the same virus that causes a cold. The virus can spread from person to person (contagious) through coughing, sneezing, and touching contaminated objects. SIGNS AND SYMPTOMS ?? Cough. ? Fever. ? Coughing up mucus. ? Body aches. ? Chest congestion. ? Chills. ? Shortness of breath. ? Sore throat. ?? DIAGNOSIS Acute bronchitis is usually diagnosed through a physical exam. Your health care provider will also ask you questions about your medical history. Tests, such as chest X-rays, are sometimes done to rule out other conditions. TREATMENT Acute bronchitis usually goes away in a couple weeks. Oftentimes, no medical treatment is necessary. Medicines are sometimes given for relief of fever or cough. Antibiotic medicines are usually not needed but may be prescribed in certain situations. In some cases, an inhaler may be recommended to help reduce shortness of breath and control the cough. A cool mist vaporizer may also be used to helpthin bronchial secretions and make it easier to clear the chest. HOME CARE INSTRUCTIONS ?? Get plenty of rest. ? Drink enough fluids to keep your urine clear or pale yellow (unless you have a medical conditionthat requires fluid restriction). Increasing fluids may help thin your respiratory secretions (sputum) and reduce chest congestion, and it will prevent dehydration. ? Take medicines only as directed by your health care provider. ?? If you were prescribed an antibiotic medicine, finish it all even if you start to feel better. ?? Avoid smoking and secondhand smoke. Exposure to cigarette smoke or irritating chemicals will make bronchitis worse. If you are a smoker, consider using nicotine gum or skin patches to help controlwithdrawal symptoms. Quitting smoking will help your lungs heal faster. ? Reduce the chances of another bout of acute bronchitis by washing your hands frequently, avoiding people with cold symptoms, and trying not to touch your hands to your mouth, nose, or eyes. ? Keep all follow-up visits as directed by your health care provider. ?? SEEK MEDICAL CARE IF: Your symptoms do not improve after 1 week of treatment. SEEK IMMEDIATE MEDICAL CARE IF: ?? You develop an increased fever or chills. ? You have chest pain. ? You have severe shortness of breath. ?? You have bloody sputum. ? You develop dehydration. ?? You faint or repeatedly feel like you are going to pass out. ?? You develop repeated vomiting. ?? You develop a severe headache. MAKE SURE YOU: ?? Understand these instructions. ?? Will watch your condition. ?? Will get help right away if you are not doing well or get worse. This information is not intended to replace advice given to you by your health care provider. Make sure you discuss any questions you have with your health care provider. Document Released: 04/26/2005 Document Revised: 04/09/2015 Document Reviewed: 09/09/2013 [employer] Patient Education ??2017 [employer]. Sinusitis, Adult Sinusitis is soreness and inflammation of your sinuses. Sinuses are hollow spaces in the bones around your face. They are located: ?? Around your eyes. ?? In the middle of your forehead. ?? Behind your nose. ?? In your cheekbones. Your sinuses and nasal passages are lined with a stringy fluid (mucus). Mucus normally drains out of your sinuses. When your nasal tissues get inflamed or swollen, the mucus can get trapped or blocked so air cannot flow through your sinuses. This lets bacteria, viruses, and funguses grow, and that leads to infection. HOME CARE Medicines ?? Take, use, or apply swbr-llk-[id number] and prescription medicines only as told by your doctor. These may include nasal sprays. ?? If you were prescribed an antibiotic medicine, take it as told by your doctor. Do not stop taking the antibiotic even if you start to feel better. Hydrate and Humidify ?? Drink enough water to keep your pee (urine) clear or pale yellow. ?? Use a cool mist humidifier to keep the humidity level in your home above 50%. ?? Breathe in steam for 10-15 minutes, 3-4 times a day or as told by your doctor. You can do this in the bathroom while a hot shower is running. ?? Try not to spend time in cool or dry air. Rest ?? Rest as much as possible. ? Sleep with your head raised (elevated). ?? Make sure to get enough sleep each night. General Instructions ?? Put a warm, moist washcloth on your face 3-4 times a day or as told by your doctor. This will help with discomfort. ?? Wash your hands often with soap and water. If there is no soap and water, use hand chemical supervisor. ?? Do not smoke. Avoid being around people who are smoking (secondhand smoke). ?? Keep all follow-up visits as told by your doctor. This is important. GET HELP IF: ?? You have a fever. ?? Your symptoms get worse. ?? Your symptoms do not get better within 10 days. GET HELP RIGHT AWAY IF: ?? You have a very bad headache. ?? You cannot stop throwing up (vomiting). ?? You have pain or swelling around your face or eyes. ?? You have trouble seeing. ?? You feel confused. ?? Your neck is stiff. ?? You have trouble breathing. This information is not intended to replace advice given to you by your health care provider. Make sure you discuss any questions you have with your health care provider. Document Released: 09/04/2008 Document Revised: 07/10/2016 Document Reviewed: 01/12/2016 [employer] Interactive Patient Education ??2017 [employer] documented in this encounter Progress Notes * Evelyn Stephenosn APRN - 03/28/2017 3:15 PM EST Chief Complaint Patient presents with ??? URI Cough, fever. sx started 3 days. HPI Gertrudis Gonzalez is a 61 y.o. female who presents with left sinus, ear, neck pain: fever, and deep barky cough for 3 days. Wheezing at night Has taken mucinex and mucinex DM PMSFH The following portions of the patient's [...] ??? SPINAL CORD STIMULATOR IMPLANT 2015 replacement Patient Active Problem List Diagnosis ??? Obstructive sleep apnea, adult [G47.33] ??? Diabetes mellitus type 2 in obese [E11.69, E66.9] ??? Benign essential hypertension [I10] ??? Myofascial pain syndrome [M79.1] ??? Postlaminectomy syndrome of lumbar region [M96.1] ??? 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 Lumbar facet arthropathy/lumbar spondylosis without myelopathy [M12.88] ??? Sacroiliac joint dysfunction of left side [M53.3] ??? 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 Physical deconditioning [R53.81] ??? Generalized anxiety disorder [F41.1] ??? Moderate obesity [E66.8] ??? Insomnia [G47.00] ??? History of migraine headaches [Z86.69] ??? Anxiety and depression [F41.8] ??? Fatigue [R53.83] ??? Hyperlipidemia [E78.5] ??? Herniated lumbar intervertebral disc [M51.26] ??? Leukocytes in urine [R82.99] ??? Vaginal atrophy [N95.2] Social History Substance Use Topics ??? Smoking status: Never Smoker ??? Smokeless tobacco: Never Used ??? Alcohol use No Current Outpatient Prescriptions on File Prior to Visit Medication Sig Dispense Refill ??? acetaminophen (TYLENOL) 500 MG tablet Take 1 tablet by mouth 2 (Two) Times a Day. Every 4 to 6 hours as needed ??? baclofen (LIORESAL) 10 MG tablet TAKE INSTRUCTED BY YOUR PRESCRIBER 270 tablet 3 ??? CARTIA XT 240 MG 24 hr capsule Take 1 tablet by mouth Daily. ??? Dapagliflozin Propanediol 10 MG tablet Take 1 tablet by mouth Daily. 30 tablet 5 ??? desvenlafaxine (PRISTIQ) 50 MG 24 hr tablet Take 1 tablet by mouth Daily. ??? diclofenac (VOLTAREN) 50 MG EC tablet Take 1 tablet two times a day when necessary for mild to moderate acute breakthrough pain. Do not to take any other NSAIDs 60 tablet 3 ??? estradiol (ESTRACE VAGINAL) 0.1 MG/GM vaginal cream Insert 2 g into the vagina 1 (One) Time PerWeek. 42.5 g 5 ??? lidocaine (LIDODERM) 5 % Apply 1 patch topically. To the affected area and leave in place for 12 hours, then remove and leave off for 12 hours ??? Liniments (SALONPAS) pads Apply topically. prn ??? NIFEdipine XL (PROCARDIA XL) 30 MG 24 hr tablet Take 30 mg by mouth Daily. ??? QUEtiapine (SEROquel) 50 MG tablet As Needed. ??? rOPINIRole (REQUIP) 0.25 MG tablet Take 1 tablet by mouth Every Night. Take 1 hour before bedtime. (Patient taking differently: Take 0.5 mg by mouth Every Night. Take 1 hour before bedtime.) 30 tablet 3 ??? SITagliptin (JANUVIA) 100 MG tablet Take 1 tablet by mouth Daily. 90 tablet 3 ??? topiramate (TOPAMAX) 50 MG tablet TAKE ONE TABLET BY MOUTH TWICE DAILY 180 tablet 0 ??? traMADol (ULTRAM) 50 MG tablet TAKE ONE TABLET BY MOUTH TWICE TO THREE TIMES DAILY NEEDED FOR SEVERE BREAKTHROUGH PAIN 90 tablet 0 ??? traZODone (DESYREL) 50 MG tablet TAKE 1 TO 2 TABLETS AT BEDTIME NEEDED 180 tablet 2 No current facility-administered medications on file prior to visit. Review of Systems Constitutional: Positive for fatigue and fever. HENT: Positive for congestion, ear pain (pressure), facial swelling, postnasal drip, rhinorrhea, sinus pressure and sore throat. Respiratory: Positive for cough. Negative for shortness of breath and wheezing. Cardiovascular: Negative. Gastrointestinal: Negative. Skin: Negative. Neurological: Negative. All other systems reviewed and are negative. Objective Blood pressure 148/74, pulse 81, temperature 98.5 ??F (36.9 ??C), temperature source Oral, height 157.5 cm (62 ), weight 86.6 kg (191 lb), SpO2 98 %. Body mass index is 34.93 kg/(m^2). Physical Exam Constitutional: She is oriented to person, place, and time. She appears well- developed and well-nourished. She appears ill (mildly). No distress. HENT: Head: Normocephalic and atraumatic. Right Ear: Tympanic membrane and ear canal normal. Tympanic membrane is not erythematous. Left Ear: Tympanic membrane and ear canal normal. Tympanic membrane is not erythematous. Nose: Mucosal edema and sinus tenderness present. Right sinus exhibits maxillary sinus tenderness. Left sinus exhibits maxillary sinus tenderness. Mouth/Throat: Uvula is midline and mucous membranes are normal. Posterior oropharyngeal erythema present. No oropharyngeal exudate or posterior oropharyngeal edema. Eyes: Conjunctivae are normal. Pupils are equal, round, and reactive to light. Neck: Normal range of motion. Cardiovascular: Normal rate, regular rhythm and normal heart sounds. Pulmonary/Chest: Effort normal. No respiratory distress. She has no wheezes. She has rhonchi. Lymphadenopathy: She has cervical adenopathy. Neurological: She is alert and oriented to person, place, and time. Skin: Skin is warm and dry. No rash noted. Psychiatric: She has a normal mood and affect. Her speech is normal and behavior is normal. Thoughtcontent normal. Cognition and memory are normal. ASSESSMENT/PLAN 1. Acute frontal sinusitis, recurrence not specified - doxycycline (VIBRAMYCIN) 100 MG capsule; Take 1 capsule by mouth 2 (Two) Times a Day for 7 days. Dispense: 14 capsule; Refill: 0 2. Bronchitis - predniSONE (DELTASONE) 20 MG tablet; Take 1 tablet by mouth 2 (Two) Times a Day for 4 days. Dispense: 8 tablet; Refill: 0 - albuterol (PROVENTIL HFA;VENTOLIN HFA) 108 (90 Base) MCG/ACT inhaler; Inhale 2 puffs Every 6 (Six) Hours As Needed for Wheezing. Dispense: 1 inhaler; Refill: 0 - promethazine-dextromethorphan (PROMETHAZINE-DM) 6.25-15 MG/5ML syrup; Take 5 mL by mouth 4 (Four)Times a Day As Needed for Cough. Dispense: 118 mL; Refill: 0 Plan of care reviewed with patient at the conclusion of today's visit. Education was provided in regards to diagnosis, management and any prescribed or recommended OTC medications. Patient verbalizesUnderstanding of and agreement with management plan. FOLLOW-UP Return if symptoms worsen or fail to improve. Future Appointments Date Time Provider Department Center 04/13/2017 1:00 PM VASILE Lopez None Electronically signed by: Evelyn Stephenson APRN 03/28/2017 documented in this encounter Plan of Treatment Upcoming Encounters Date Type Department Care Team (Late st Contact Info) Description 03/13/2024 2:45 PM EST Office Visit [facility] CARD[facility]OLOGY [address] [place] [address] [place] [address] Pj Ace [facility] [address] [facility] [address] [place], [place] [id number] documented as of this encounter Visit Diagnoses Diagnosis Acute frontal sinusitis, recurrence not specified- Primary Bronchitis Bronchitis, not specified as acute or chronic documented in this encounter Care Teams Salesperson Hosiery Relationship Specialty Start Date End Date Madelaine Norman, STRAIGHTENER HAND [address] [facility] [address] [place] [address] PCP - General Internal Medicine 12/13/16 09/07/17 documented as of this encounter
--- OUTSIDE RECORDS SUMMARY | 2024-02-20 09:15 | XMS_ITS | Encounter Summary ---
[facility] [address] [place] [address] Care Team Providers Care Gun Club Manager Name Role Phone Deepak Cortez MD Primary Care Provider Unav ailable Reason for Visit * Reason Comments Back Pain Follow-up Encounter Details Date Type Department Care Team (Late st Contact Info) Description 10/31/2016 7:00 AM EDT Office Visit [facility] PAIN MANAGEMENT [address] [address] Bebeto Adams MD [address] [facility] [address] [place] [address] Postlaminectomy syndrome of lumbar region; Meningeal adhesions/lumbar arachnoiditis; Lumbar facet arthropathy/lumbar spondylosis without myelopathy; Herniated lumbar intervertebral disc; Sacroiliac joint dysfunction of left side; Myofascial pain syndrome; History of migraine headaches; Moderate obesity; Obstructive sleep apnea, adult; Diabetes mellitus type 2 in obese; Insomnia, unspecified type; Generalized anxiety disorder; Physical deconditioning Social History Tobacco Use Types Packs/Day Years Used Date Smoking Tobacco: Never Smokeless Tobacco: Never Alcohol Use Standard Drinks/Week Comments No 0 (1 standard drink = 0.6 oz pur e alcohol) Comments Unknown Sex and Gender Information Value Date Recorded Sex Assigned at Not on file Legal Sex Female 10:25 AM EDT Gender Identity Not on file Sexual Orientation Not on file documented as of this encounter Last Filed Vital Signs Vital Sign Reading Time Taken Comments Blood Pressure 177/110 10/31/2016 7:04 AM EDT Pulse 85 10/31/2016 7:04 AM EDT Temperature 36.2 ??C (97.2 ??F) 10/31/2016 7:04 AM ED T Respiratory Rate 18 10/31/2016 7:04 AM EDT Oxygen Saturation 97% 10/31/2016 7:04 AM EDT Inhaled Oxygen Concentration - - Weight 84.8 kg (187 lb) 10/31/2016 7:04 AM EDT Height 157.5 cm (5' 2 ) 10/31/2016 7:04 AM EDT Body Mass Index 34.2 10/31/2016 7:04 AM EDT documented in this encounter Progress Notes * Bebeto Adams MD - 10/31/2016 7:00 AM EDT Chief Complain: I did well after the last reprogramming until about 1-2 weeks ago. ? Brief History: Ms. Gonzalez returns to the clinic for evaluation of her chronic lower back pain and possible SCS reprogramming. Spinal cord stimulator device system: Patient underwent implantation of her spinal cord stimulator device system on December 31, [address] Damien Berg. [place] Penta lead with the top electrodes projecting at the level of the superior endplate of the T7 vertebral body. IPG: Prot??g?? Pain level: 6/10 (before reprogramming) down to 1-2/10 (after reprogramming) Pain level ranges from 1/10 to 6/10 (down in comparison to last visit) with the spinal cord stimulator on with certain activities and during the night. Pain location: Left lower back and left lower extremity to her left foot. Quality of pain: Aching Radiation of pain: From the left gluteal region to the posterior aspect of her left thigh, left calf and into the plantar aspect of her left foot Current analgesics: ice and heat in the areas of her chronic pain, SalonPas, baclofen, tramadol, diclofenac, Lidocaine Patches and Tylenol without side effects. I have reviewed [facility] #[id number], is consistent with medication reconciliation. Comorbid factors: Depression and anxiety: Patient reports worsening of her depression and anxiety. She continues under the care of Dr. Burks. Patient continues on Pristiq, Geodon, trazodone, Seroquel. She continues CBT with Yoanna Jacqui. Physical deconditioning and noncompliance: She has not yet resumed water therapy or physical therapy Sleep disturbance: Patient underwent a sleep study 07/29/2016. Patient is using a CPAP machine. Obesity: Patient has been scheduled for follow up with [facility]. Diabetes: NIDDM, not controlled. No meds. No compliance. Diagnostic studies: UDS on 07/27/2016, appropriate UDS on 03/07/2016, [...] Review of Systems Respiratory: Positive for apnea. Endocrine: Positive for cold intolerance and heat intolerance. Genitourinary: Positive for pelvic pain. Musculoskeletal: Positive for arthralgias, back pain and myalgias. Neurological: Positive for headaches. Psychiatric/Behavioral: Positive for agitation, decreased concentration and sleep disturbance. The patient is nervous/anxious. All other systems reviewed and are negative. BP (!) 177/110 (BP Location: Left arm, Patient Position: Sitting) Pulse 85 Temp 97.2 ??F (36.2 ??C) (Temporal Artery ) Resp 18 Ht 62 (157.5 cm) Wt 187 lb (84.8 kg) SpO2 97% BMI 34.2 kg/m2 Physical Exam Neurologic Exam Constitutional General appearance: [...] memory: Intact. Mood and affect: Normal. ? PROCEDURE: Analysis of the spinal cord stimulator device with complex spinal cord stimulator reprogramming Analysis of the spinal cord stimulator device reveals that the patient has used her stimulator device for a total of 1538 hours since last reprogramming, and 11,188 lifetime hours (24 hours per day).Analysis of impedance reveals normal impedance for all contacts. The spinal cord stimulator device was reprogrammed under my supervision by adjusting electrode polarities, pulse width, pulse rate, amplitudes, BurstDR, by recreating programs 3 and 4, for a total offive programs, as follows; Program FOUR (best program) Electrode polarities: 1+, 2-, 3+, 4- Amplitude: 1.1-1.5 mA Pulse width: 1000 mcs Intraburst rate: 500 Hz Pulse Rate: 40 Hz Micro-dosin:90 Time spent reprogrammin minutes. A copy of the telemetry report will be scanned in the patient's chart ?? ASSESSMENT: 1. Postlaminectomy syndrome of lumbar region 2. Meningeal adhesions/lumbar arachnoiditis 3. Lumbar facet arthropathy/lumbar spondylosis without myelopathy 4. Herniated lumbar intervertebral disc 5. Sacroiliac joint dysfunction of left side 6. Myofascial pain syndrome 7. History of migraine headaches 8. Moderate obesity 9. Obstructive sleep apnea, adult 10. Diabetes mellitus type 2 in obese 11. Insomnia, unspecified type 12. Generalized anxiety disorder 13. Physical deconditioning PLAN: Patient's chronic pain condition has improved with the use of her spinal cord stimulator device. Patient continues to struggle with anxiety, depression, insomnia, and PATTIE (no compliance with CPAP). Continue current management and additional workups, referrals, and treatments as outlined in the following plan: 1. Follow-up on an as needed basis. If patient continues to struggle with pain, then, we may proceed with diagnostic and therapeutic left L5-S1 and left S1 transforaminal epidural steroid injection. 2. Long-term rehabilitation efforts: a. Resume comprehensive physical therapy program b. Resume water therapy c. Follow-up at [facility] d. Follow-up with Dr. Diogenes Neville for cognitive behavioral therapy, biofeedback, and CPAP compliance e. Follow-up with Dr. Lozano for her sleep apnea f. Follow-up with Dr. Burks for her unrelenting anxiety, depression and insomnia g. Referral to Dr. Lupillo Brice for mouth appliance for Tx of sleep apnea (patient does not tolerateCPAP). h. The patient does not have a history [...] over the counter sedatives and alcohol consumption 3. Pharmacological measures, as follows: a. Continue topiramate 50 mg twice daily b. Continue trazodone 50-100 mg each bedtime for insomnia c. Trial with diclofenac 50 mg two times a day when necessary for mild to moderate acute breakthrough pain. I have instructed the patient not to take any other NSAIDs d. Continue lidocaine patches e. Continue baclofen 10 mg 1/2 to 1 tablet 1-2 times a day as needed muscle spasms f. Tramadol 50 mg 2-3 times a day as needed for severe breakthrough pain. Screening and compliance with controlled substances: Patient has completed a SOAPP questionnaire and ORT questionnaires (revealing low risk). Abrahan reports have been reviewed at each visit, and at least every three months and appropriate. Random urine drug screenings have been obtained and appropriate. Patient has signed aconsent for treatment with controlled substances after reviewing the document and verbalizing full understanding of the risks, benefits, alternatives, and consequences of compliance and adherence with treatment and comprehensive plan of care. Patient received in hand a copy of this document. 4. The patient has been instructed to contact my office with any questions or difficulties. The patient understands the plan and agrees to proceed accordingly. Patient Care Team: Deepak Cortez MD as PCP - General Bebeto Adams MD as Consulting Physician (Pain Medicine) Damien Berg MD as Surgeon (Neurosurgery) Leidy Robertson MD as Consulting Physician (Internal Medicine) No orders of the defined types were placed in this encounter. Future Appointments Date Time Provider Department Center 12/05/2016 11:00 AM Madelaine Norman APRN [facility] None 01/19/2017 2:45 PM Denis Lozano MD [facility] None Bebeto Adams MD ? documented in this encounter Plan of Treatment Upcoming Encounters Date Type Department Care Team (Late st Contact Info) Description 03/13/2024 2:45 PM EST Office Visit [facility] CARDIOLOGY [address] [place] [address] Pj Ace MD [address] [facility] [address] [place] [address] documented as of this encounter Procedures Procedure Name Priority Date/Time Associated Diagnosis Comments SCANNED - TELEMETRY 10/31/2016 documented in this encounter Results * SCANNED - TELEMETRY (10/31/2016) Anatomical Region Laterality Modality Other us Bebeto Adams MD ECG ORDERABLES Final Result documented in this encounter Visit Diagnoses Diagnosis Postlaminectomy syndrome of lumbar region Postlaminectomy syndrome, lumbar region Meningeal adhesions/lumbar arachnoiditis Lumbar facet arthropathy/lumbar spondylosis without myelopathy Spondylosis of unspecified site without mention of myelopathy Herniated lumbar intervertebral disc Displacement of lumbar intervertebral disc without myelopathy Sacroiliac joint dysfunction of left side Myofascial pain syndrome Unspecified myalgia and myositis History of migraine headaches Moderate obesity Obstructive sleep apnea, adult Diabetes mellitus type 2 in obese Type II or unspecified type diabetes mellitus without mention of complication, not stated as uncontrolled Insomnia, unspecified type Generalized anxiety disorder Physical deconditioning Muscular wasting and disuse atrophy, not elsewhere classified documented in this encounter Care Teams Gun Club Manager Relationship Specialty Start Date End Date Deepak Cortez MD PCP - General 12/31/14 12/12/16 documented as of this encounter
--- OUTSIDE RECORDS SUMMARY | 2024-02-20 09:15 | XMS_ITS | Encounter Summary ---
[facility] Address [address] [place] [address] Care Team Providers Care Wheel Worker Name Role Phone Madelaine Norman APRN Primary Care Provider [phone] Encounter Details Date Type Department Care Team (Late st Contact Info) Description 03/29/2017 Telephone [facility] INTERNAL MEDICINE [address] [place] [address] Madelaine Norman, FELLMONGERY WORKER [address] [place] [id number] Social History Tobacco Use Types Packs/Day Years [...] encounter Miscellaneous Notes * Telephone Encounter - Venita Smith MA - 03/30/2017 5:00 PM EST Attempted to call patient and no answer and voicemail available * Telephone Encounter - Madelaine Norman APRN - 03/29/2017 2:39 PM EST Walk in flu swab * Telephone Encounter - Venita Smtih MA - 03/29/2017 2:33 PM EST Please Advise * Telephone Encounter - Michael Monae - 03/29/2017 1:37 PM EST PT IS STILL EXPERIENCING SYMPTOMS OF COUGHING AND IS EXPERIENCING CHILLS WOULD LIKE TO KNOW IF YOU CAN CALL IN [facility] FOR documented in this encounter Plan of Treatment Upcoming Encounters Date Type Department Care Team (Late st Contact Info) Description 03/13/2024 2:45 PM EST Office Visit [facility] CARDIOLOGY [address] [place] [address] [place] [address] Pj Ace MD [address] [facility] [address] [place] [address] documented as of this encounter Visit Diagnoses Not on filedocumented in this encounter Care Teams Wheel Worker Relationship Specialty Start Date End Date Madelaine Norman APRN [address] [facility] [address] [place] [address] PCP - General Internal Medicine 12/13/16 09/07/17 documented as of this encounter
--- OUTSIDE RECORDS SUMMARY | 2024-02-20 09:15 | XMS_ITS | Encounter Summary ---
[facility] Address [address] [place] [address] Care Team Providers Care Department Mgr Name Role Phone Madelaine Norman APRN Primary Care Provider [phone] Reason for Visit * (Routine) - Closed Specialty Diagnoses / Procedures Referred By Contac t Referred To Contact Radiology Diagnoses Meningeal adhesions Postlaminectomy syndrome of lumbar region Herniated lumbar intervertebral disc Lumbar facet arthropathy Spinal cord stimulator status Procedures XR Spine Thoracic 1 View Bebeto Adams MD [address] [place] [address] Phone: tel: fax: Referral ID Status Reason Start Date Expiration Date Visits Re quested Visits Authorized [id number] Closed 03/22/2017 03/22/2018 1 1 Encounter Details Date Type Department Care Team (Late st Contact Info) Description 03/22/2017 3:15 PM EST - 03/22/2017 11:59 PM [facility] Hospital Encounter [facility] XRAY [address] [place] [address] Bebeto Adams MD [address] [place] [address] Discharge Disposition: Home or Self Care Social [...] Every 4 to 6 hours as needed 12/09/2013 9 baclofen (LIORESAL) 10 MG tablet TAKE INSTRUCTED BY YOUR PRESCRIBER 270 tablet 3 03/14/2017 8 CARTIA XT 240 MG 24 hr capsule Take 1 tablet by mouth Daily. 12/12/2016 8 Dapagliflozin Propanediol 10 MG tablet Take 1 tablet by mouth Daily. 30 tablet 5 11/22/2016 8 desvenlafaxine (PRISTIQ) 50 MG 24 hr tablet Take 1 tablet by mouth Daily. 07/21/2016 9 diclofenac (VOLTAREN) 50 MG EC tablet Take 1 tablet two times a day when necessary for mild to moderate acute breakthrough pain. Do not to take any other NSAIDs 60 tablet 3 02/26/2017 8 estradiol (ESTRACE VAGINAL) 0.1 MG/GM vaginal creamIndications: Vaginal atrophy Insert 2 g into the vagina 1 (One) Time Per Week. 42.5 g 5 05/12/2016 0 lidocaine (LIDODERM) 5 % Apply 1 patch topically. To the affected area and leave in place for 12 hours, then remove and leave off for 12 hours 10/08/2013 8 Liniments (SALONPAS) pads Apply topically. prn 0 NIFEdipine XL (PROCARDIA XL) 30 MG 24 hr tablet Take 60 mg by mouth Daily. 8 QUEtiapine (SEROquel) 50 MG tablet As Needed. 05/11/2016 8 rOPINIRole (REQUIP) 0.25 MG tabletIndications :RLS (restless legs syndrome) Take 1 tablet by mouth Every Night. Take 1 hour before bedtime. 30 tablet 3 01/04/2017 9 SITagliptin (JANUVIA) 100 MG tablet Take 1 tablet by mouth Daily. 90 tablet 3 02/07/2017 8 topiramate (TOPAMAX) 50 MG tablet TAKE ONE TABLET BY MOUTH TWICE DAILY 180 tablet 10/19/2015 0 traMADol (ULTRAM) 50 MG tablet TAKE ONE TABLET BY MOUTH TWICE TO THREE TIMES DAILY NEEDED FOR SEVERE BREAKTHROUGH PAIN 90 tablet 11/15/2016 8 traZODone (DESYREL) 50 MG tablet TAKE 1 TO 2 TABLETS AT BEDTIME NEEDED 180 tablet 2 02/26/2017 8 documented as of this encounter Plan of Treatment Upcoming Encounters Date Type Department Care Team (Late st Contact Info) Description 03/13/2024 2:45 PM EST Office Visit [facility] CARDIOLOGY [address] [place] [address] [place] [address] Pj Ace MD [address] [facility] [address] [place] [address] documented as of this encounter Procedures Procedure Name Priority Date/Time Associated Diagnosis Comments XR SPINE THORACIC 1 VW Routine 03/22/2017 3:30 PM EST Meningeal adhesions Postlaminectomy syndrome of lumbar region Herniated lumbar intervertebral disc Lumbar facet arthropathy Spinal cord stimulator status documented in this encounter Results * XR Spine Thoracic 1 View (03/22/2017 3:30 PM EST) Anatomical Region Laterality Modality Spine, T-spine N/A Radiographic Sri ging 03/22/2017 4:40 PM EST Impressions 03/22/2017 5:12 PM EST Spinal cord stimulator terminating at the T7 superior endplate level. D: ??03/22/2017 E: ??03/22/2017 This report was finalized on 03/22/2017 5:[address] Jann Stover. Narrative 03/22/2017 5:12 PM EST EXAMINATION: XR SPINE, THORACIC, 1 VW-03/22/2017: INDICATION: For spinal cord stimulator lead assessment; G96.12-Meningeal adhesions (cerebral) (spinal); M96.1-Postlaminectomy syndrome, not elsewhere classified; M51.26-Other intervertebral disc displacement, lumbar region; M12.88-Other specific arthropathies, not elsewhere classified, other specified site; Z96.89-Presence of other specified functional implants. COMPARISON: Radiograph dated 12/31/2014, CT 12/13/2016. FINDINGS: Lung bases are grossly clear. No evidence for acute fracture, subluxation or dislocation of the thoracic spine with spinal cord stimulator terminating at the T7 superior endplate level. ? Procedure Note Jann Stover DO - 03/22/2017 EXAMINATION: XR SPINE, THORACIC, 1 VW-03/22/2017: INDICATION: For spinal cord stimulator lead assessment; G96.12-Meningeal adhesions (cerebral) (spinal); M96.1-Postlaminectomy syndrome, not elsewhere classified; M51.26-Other intervertebral disc displacement, lumbar region; M12.88-Other specific arthropathies, not elsewhere classified, other specified site; Z96.89-Presence of other specified functional implants. COMPARISON: Radiograph dated 12/31/2014, CT 12/13/2016. FINDINGS: Lung bases are grossly clear. No evidence for acute fracture, subluxation or dislocation of the thoracic spine with spinal cord stimulator terminating at the T7 superior endplate level. IMPRESSION: Spinal cord stimulator terminating at the T7 superior endplate level. E: 03/22/2017 This report was finalized on 03/22/2017 5:[address] Jann Stover. Bebeto Adams MD IMG DIAGNOSTIC IMAGING ORDERA BLES Final Result documented in this encounter Visit Diagnoses Not on filedocumented in this encounter Care Teams Department Mgr Relationship Specialty Start Date End Date Madelaine Norman, AWAKE OVERNIGHT MONITOR [address] [address] PCP - General Internal Medicine 12/13/16 09/07/17 documented as of this encounter
--- OUTSIDE RECORDS SUMMARY | 2024-02-20 09:15 | XMS_ITS | Encounter Summary ---
[facility] [address] [place] [address] Care Team Providers Care Auto Tune Up Mechanic Name Role Phone Madelaine Norman APRN Primary Care Provider [phone] Reason for Visit * Reason Comments Med Refill Encounter Details Date Type Department Care Team (Late st Contact Info) Description 02/23/2017 Refill [facility] PAIN MANAGEMENT [address] [facility] [address] [place] [address] Bebeto Adams MD [address] [facility] [address] [place] [address] Social History Tobacco Use Types Packs/Day Years [...] CENTER CARDIOLOGY [address] [place] [address] [place] [address] Pj Ace MD [address] [facility] [address] [place], [place] [id number] documented as of this encounter Visit Diagnoses Not on filedocumented in this encounter Care Teams Auto Tune Up Mechanic Relationship Specialty Start Date End Date Madelaine Norman APRN [address] [place] [address] PCP - General Internal Medicine 12/13/16 09/07/17 documented as of this encounter
--- OUTSIDE RECORDS SUMMARY | 2024-02-20 09:15 | XMS_ITS | Encounter Summary ---
Author Organization [facility] Address [address] [place] [address] Care Team Providers Care Geography Faculty Member Name Role Phone Madelaine Norman APRN Primary Care Provider [phone] Reason for Referral * Diagnostic Imaging (Routine) - Closed Specialty Diagnoses / Procedures Referred By Contac t Referred To Contact Radiology Diagnoses Chronic right-sided thoracic back pain Procedures CT thoracic spine wo contrast Madelaine Norman APRN [address] [place] [address] Phone: tel: fax: [place] [phone] Phone: tel: Referral ID Status Reason Start Date Expiration Date Visits Re quested Visits Authorized [id number] Closed 12/08/2016 12/08/2017 1 1 Reason for Visit * Diagnostic Imaging (Routine) - Closed Specialty Diagnoses / Procedures Referred By Contac t Referred To Contact Radiology Diagnoses Chronic right-sided thoracic back pain Procedures CT thoracic spine wo contrast Madelaine Norman APRN [address] [place] [address] Phone: tel: fax: [address] [address] Phone: tel: Referral ID Status Reason Start Date Expiration Date Visits Re quested Visits Authorized [id number] Closed 12/08/2016 12/08/2017 1 1 Encounter Details Date Type Department Care Team (Late st Contact Info) Description 12/13/2016 1:56 PM EDT - 12/13/2016 11:59 PM EDT Hospital Encounter [facility] AT [address] [place] [address] Madelaine Norman, FORENSIC MATERIALS ENGINEER [address] [facility] [address] [place] [address] Chronic right-sided thoracic back pain Discharge Disposition: Home or Self Care [...] TAKE INSTRUCTED BY YOUR PRESCRIBER 270 tablet 1 03/30/2016 7 CARTIA XT 240 MG 24 hr capsule Take 1 tablet by mouth Daily. 12/12/2016 8 chlorthalidone (HYGROTON) 25 MG tablet Take 1 tablet by mouth Daily. 1 po qd-APPT NEEDED FOR FURTHER REFILLS, THANK YOU 90 tablet 09/21/2016 7 CloNIDine (CATAPRES) 0.1 MG tabletIndications :Essential hypertension Take 1 tablet by mouth 2 (Two) Times a Day. 60 tablet 1 12/08/2016 7 Dapagliflozin Propanediol 10 MG tablet Take 1 tablet by mouth Daily. 30 tablet 5 11/22/2016 8 desvenlafaxine (PRISTIQ) 50 MG 24 hr tablet Take 1 tablet by mouth Daily. 07/21/2016 9 diclofenac (VOLTAREN) 50 MG EC tablet Take 1 tablet two times a day when necessary for mild to moderate acute breakthrough pain. Do not to take any other NSAIDs 60 tablet 3 10/23/2016 7 estradiol (ESTRACE VAGINAL) 0.1 MG/GM vaginal creamIndications: Vaginal atrophy Insert 2 g into the vagina 1 (One) Time Per Week. 42.5 g 5 05/12/2016 0 hydrALAZINE (APRESOLINE) 25 MG tabletIndications :Benign essential hypertension Take 1 tablet by mouth 3 (Three) Times a Day. 270 tablet 3 11/20/2016 7 lidocaine (LIDODERM) 5 % Apply 1 patch topically. To the affected area and leave in place for 12 hours, then remove and leave off for 12 hours 10/08/2013 8 Linaclotide 145 MCG capsuleIndication s:Chronic idiopathic constipation Take 145 mcg by mouth Daily. 90 capsule 1 05/12/2016 7 Liniments (SALONPAS) pads Apply topically. prn 0 QUEtiapine (SEROquel) 50 MG tablet As Needed. 05/11/2016 8 SITagliptin (JANUVIA) 50 MG tablet Take 1 tablet by mouth Daily. 90 tablet 3 12/08/2016 7 topiramate (TOPAMAX) 50 MG tablet TAKE ONE TABLET BY MOUTH TWICE DAILY 180 tablet 10/19/2015 0 traMADol (ULTRAM) 50 MG tablet TAKE ONE TABLET BY MOUTH TWICE TO THREE TIMES DAILY NEEDED FOR SEVERE BREAKTHROUGH PAIN 90 tablet 11/15/2016 8 traZODone (DESYREL) 50 MG tablet TAKE 1 TO 2 TABLETS AT BEDTIME NEEDED 180 tablet 2 01/20/2016 7 documented as of this encounter Plan of Treatment Upcoming Encounters Date Type Department Care Team (Late st Contact Info) Description 03/13/2024 2:45 PM EST Office Visit [facility] CARDIOLOGY [address] [address] [place] [address] Pj Ace MD [address] [place] [address] documented as of this encounter Procedures Procedure Name Priority Date/Time Associated Diagnosis Comments CT THORACIC SPINE WO CONTRAST Routine 12/13/2016 2:09 PM EDT Chronic right-sided thoracic back pain documented in this encounter Results * CT thoracic spine wo contrast (12/13/2016 2:09 PM EDT) Anatomical Region Laterality Modality T-spine N/A Computed Tomogra phy 12/13/2016 4:40 PM EDT Impressions 12/14/2016 12:24 PM EDT There is evidence of laminectomy at T9 and T10 where there is insertion of a spinal cord stimulator which is placed at the level of T7. There are mild diffuse osteoarthritic changes. There is no compression fracture or subluxation. There is no spinal stenosis. D: ??12/13/2016 E: ??12/13/2016 This report was finalized on 12/14/2016 12:[address] Nelson Desouza MD. Narrative 12/14/2016 12:24 PM EDT EXAMINATION: CT SCAN OF THE THORACIC SPINE WO CONTRAST-12/13/2016: HISTORY: Back pain. COMPARISON: ??NONE. The radiation dose reduction device was turned on as low as reasonably achievable for each scan per ALARA protocol. FINDINGS: CT scan of the thoracic spine was [...] is no paraspinous mass. There is no compression fracture. There is no blastic or lytic process. Procedure Note Nikolas Desouza MD - 12/14/2016 EXAMINATION: CT SCAN OF THE THORACIC SPINE WO CONTRAST-12/13/2016: HISTORY: Back pain. COMPARISON: NONE. The radiation dose reduction device was turned on as low as reasonably achievable for each scan per ALARA protocol. FINDINGS: CT scan of the thoracic spine was [...] is no paraspinous mass. There is no compression fracture. There is no blastic or lytic process. IMPRESSION: There is evidence of laminectomy at T9 and T10 where there is insertion of a spinal cord stimulator which is placed at the level of T7. There are mild diffuse osteoarthritic changes. There is no compression fracture or subluxation. There is no spinal stenosis. E: 12/13/2016 This report was finalized on 12/14/2016 12:[address] Nelson Desouza MD. Madelaine Norman APRN IMG CT ORDERABLES Final Res ult documented in this encounter Visit Diagnoses Diagnosis Chronic right-sided thoracic back pain documented in this encounter Care Teams Geography Faculty Member Relationship Specialty Start Date End Date Madelaine Norman APRN [address] [address] PCP - General Internal Medicine 12/13/16 09/07/17 documented as of this encounter
--- OUTSIDE RECORDS SUMMARY | 2024-02-20 09:15 | XMS_ITS | Encounter Summary ---
[facility] Address [address] [place] [address] Care Team Providers Care Kennel Keeper Name Role Phone Deepak Cortez MD Primary Care Provider Unav ailable Reason for Visit * Reason Comments Med Refill Encounter Details Date Type Department Care Team (Late st Contact Info) Description 09/04/2016 Refill [facility] PAIN MANAGEMENT [address] [facility] [address] [place] [phone] Bebeto Adams MD [address] [facility] [address] [place] [address] Social History Tobacco Use Types Packs/Day Years [...] CENTER CARDIOLOGY [address] [place] [address] [place] [address] Pj Ace MD [address] [facility] [address] [place] [address] documented as of this encounter Visit Diagnoses Not on filedocumented in this encounter Care Teams Kennel Keeper Relationship Specialty Start Date End Date Deepak Cortez MD PCP - General 12/31/14 12/12/16 documented as of this encounter
--- OUTSIDE RECORDS SUMMARY | 2024-02-20 09:15 | XMS_ITS | Encounter Summary ---
[facility] [address] [place] [address] Care Team Providers Care Mail Technician Name Role Phone Deepak Cortez MD Primary Care Provider Unav ailable Reason for Visit * Reason Comments Med Refill Encounter Details Date Type Department Care Team (Late st Contact Info) Description 10/09/2016 Refill [facility] PAIN MANAGEMENT [address] [facility] [address] [place] [phone] Bebeto Adams MD [address] [facility] [address] [place] [address] Social History Tobacco Use Types Packs/Day Years [...] [facility] CARDIOLOGY [address] [place] [address] [address] Pj Ace MD [address] [facility] [address] [place] [address] documented as of this encounter Visit Diagnoses Not on filedocumented in this encounter Care Teams Mail Technician Relationship Specialty Start Date End Date Deepak Cortez MD PCP - General 12/31/14 12/12/16 documented as of this encounter
--- OUTSIDE RECORDS SUMMARY | 2024-02-20 09:15 | XMS_ITS | Encounter Summary ---
[facility] Address [address] [place] [address] Care Team Providers Care Grout Machine Operator Name Role Phone Madelaine Norman LEAK GANG SUPERVISOR Primary Care Provider [phone] Encounter Details Date Type Department Care Team (Late st Contact Info) Description 12/20/2016 Telephone [facility] INTERNAL MEDICINE [address] [place] [address] Madelaine Norman, LEAK GANG SUPERVISOR [address] [phone] Social History Tobacco Use Types Packs/Day Years [...] encounter Miscellaneous Notes * Telephone Encounter - Erika Barrientos MA - 12/21/2016 9:45 AM EDT Copy was printed and mailed to pt * Telephone Encounter - Kaylynn Javed RegSched Rep - 12/20/2016 12:12 PM EDT PATIENT WOULD LIKE A COPY OF THE MEDS LIST THAT SHE IS ALLERGIC TO. I DO NOT HAVE ACCESS TO PRINT THIS OFF. PATIENT ASKED FOR THIS TO BE MAILED. SHE IS GOING TO COME INTO OUR OFFICE AND SIGN A RELEASE OF INFORMATION. documented in this encounter Plan of Treatment Upcoming Encounters Date Type Department Care Team (Late st Contact Info) Description 03/13/2024 2:45 PM EST Office Visit [facility] CARDIOLOGY [address] [place] [address] [place] [address] Pj Ace MD [address] [facility] [address] [place] [address] documented as of this encounter Visit Diagnoses Not on filedocumented in this encounter Care Teams Grout Machine Operator Relationship Specialty Start Date End Date Madelaine Norman APRN [address] [facility] [address] [place] [address] PCP - General Internal Medicine 12/13/16 09/07/17 documented as of this encounter
--- OUTSIDE RECORDS SUMMARY | 2024-02-20 09:15 | XMS_ITS | Encounter Summary ---
[facility] Organization [facility] Address [address] [place] [address] Care Team Providers Care Clerk General Office Name Role Phone Madelaine Norman APRN Primary Care Provider [phone] Reason for Visit * Reason Comments Med Refill Encounter Details Date Type Department Care Team (Late st Contact Info) Description 03/13/2017 Refill [facility] PAIN MANAGEMENT [address] [facility] [address] [place] [phone] Bebeto Adams MD [address] [facility] [address] [place] [address] Social History Tobacco Use Types Packs/Day Years [...] CENTER CARDIOLOGY [address] [place] [address] [place] [address] Pj Ace MD [address] [facility] [address] [place], [place] [phone] documented as of this encounter Visit Diagnoses Not on filedocumented in this encounter Care Teams Clerk General Office Relationship Specialty Start Date End Date Madelaine Norman APRN [address] [place] [address] PCP - General Internal Medicine 12/13/16 09/07/17 documented as of this encounter
--- OUTSIDE RECORDS SUMMARY | 2024-02-20 09:15 | XMS_ITS | Encounter Summary ---
[facility] Address [address] [place] [address] Care Team Providers Care Air Brake Adjuster Name Role Phone Deepak Cortez MD Primary Care Provider Unav ailable Reason for Visit * Reason Onset Date Comments Cancel order for Farxiga at [facility] 11/01 Encounter Details Date Type Department Care Team (Late st Contact Info) Description 11/23/2016 Telephone [facility] INTERNAL MEDICINE [address] [place] [address] Madelaine Norman, BACKWINDER [address] [place] [address] Cancel order for Farxiga at [facility] Social History Tobacco Use Types Packs/Day Years [...] Miscellaneous Notes * Telephone Encounter - Ev Estrada MA - 11/23/2016 12:07 PM EDT Spoke to Martha at [facility], Baldemarxiga canceled. * Telephone Encounter - Ev Estrada MA - 11/23/2016 11:30 AM EDT See telephone encounter dated 11/22/16. Farxiga was sent to [facility] by mistake. It was supposed to go to [facility]. * Telephone Encounter - Beth Stein - 11/23/2016 8:05 AM EDT FARXIGA 10 MG TABLET NEEDS USAGE DIRECTIONS CLARIFIED JOSIAH PHARMACIST FROM [employer] [phone] REFERENCE NUMBER [id number] documented in this encounter Plan of Treatment Upcoming Encounters Date Type Department Care Team (Late st Contact Info) Description 03/13/2024 2:45 PM EST Office Visit [facility] CARDIOLOGY [address] [facility] [place] [address] Pj Ace MD [address] [facility] [address] [facility] [address] [place] [address] documented as of this encounter Visit Diagnoses Not on filedocumented in this encounter Care Teams Air Brake Adjuster Relationship Specialty Start Date End Date Deepak Cortez MD PCP - General 12/31/14 12/12/16 documented as of this encounter
--- OUTSIDE RECORDS SUMMARY | 2024-02-20 09:15 | XMS_ITS | Encounter Summary ---
[facility] Address [address] [place] [address] Care Team Providers Care Clinic Cma Name Role Phone Deepak Cortez MD Primary Care Provider Unav ailable Reason for Visit * Reason Comments Med Refill Encounter Details Date Type Department Care Team (Late st Contact Info) Description 11/13/2016 Refill [facility] PAIN MANAGEMENT [address] [facility] [address] [place] [phone] Bebeto Adams MD [address] [facility] [address] [place] [address] Social History Tobacco Use Types Packs/Day Years [...] Visit [facility] CARDIOLOGY [address] [place] [address] [place] [address] Pj Ace MD [address] [facility] [address] [place] [address] documented as of this encounter Visit Diagnoses Not on filedocumented in this encounter Care Teams Clinic Cma Relationship Specialty Start Date End Date Deepak Cortez MD PCP - General 12/31/14 12/12/16 documented as of this encounter
--- OUTSIDE RECORDS SUMMARY | 2024-02-20 09:15 | XMS_ITS | Encounter Summary ---
Author Organization [facility] Address [address] [place] [address] Care Team Providers Care Steam Gigger Name Role Phone Deepak Cortez MD Primary Care Provider Unav ailable Reason for Visit * Reason Comments Type 2 diabetes mellitus without complic ation, without long- MTHFR mutation (methylenetetrahydrofolat e reductase) Vaginal atrophy Chronic idiopathic constipation Med Refill chlorthalidone Encounter Details Date Type Department Care Team (Late st Contact Info) Description 08/09/2016 10:45 AM EDT Office Visit [facility] INTERNAL MEDICINE [address] [place] [address] Deepak Cortez MD Diabetes mellitus type 2 in obese (Primary Dx); Essential hypertension Social History Tobacco Use Types [...] Sign Reading Time Taken Comments Blood Pressure 162/82 08/09/2016 11:02 AM EDT Pulse 109 08/09/2016 11:02 AM EDT Temperature - - Respiratory Rate - - Oxygen Saturation 98% 08/09/2016 11:02 AM EDT Inhaled Oxygen Concentration - - Weight 84.8 kg (187 lb) 08/09/2016 11:02 AM EDT Height 157.5 cm (5' 2 ) 08/09/2016 11:02 AM EDT Body Mass Index 34.2 08/09/2016 11:02 AM EDT documented in this encounter Progress Notes * Deepak Cortez MD - 08/09/2016 10:45 AM EDT Subjective Gertrudis Gonzalez is a 60 y.o. female. Type 2 diabetes mellitus without complication, without long-; MTHFR mutation (methylenetetrahydrofolate reductase); Vaginal atrophy; Chronic idiopathic constipation; and Med Refill (chlorthalidone) HPI Comments: She has not been doing well with her diabetes since starting [employer]. She is hungry all the time. She has been eating more and her A1c is up a percentage and a half. She cannot toleratemetformin and shedid much better in [employer]. Her BP is still elevated so I'm adding hydralazine 10mg tid since she has had adverse reactions to many BP meds. The following portions of the patient's history were reviewed and updated as appropriate: allergies, current medications, past family history, past medical history, past social history, past surgicalhistory and problem list. Review of Systems Constitutional: Negative for activity change and appetite change. HENT: Negative for congestion and dental problem. Eyes: Negative for discharge and itching. Respiratory: Negative for apnea and chest tightness. Cardiovascular: Negative for chest pain, palpitations and leg swelling. Endocrine: Negative for cold intolerance and heat intolerance. Genitourinary: Negative for difficulty urinating and dyspareunia. Musculoskeletal: Negative for arthralgias and back pain. Neurological: Negative for dizziness and facial asymmetry. Hematological: Negative for adenopathy. Does not bruise/bleed easily. Psychiatric/Behavioral: Negative for agitation and behavioral problems. Objective Vitals: 08/09/16 1102 BP: 162/82 Pulse: 109 SpO2: 98% Physical Exam Constitutional: She is oriented to person, place, and time. She appears well- developed and well-nourished. HENT: Head: Normocephalic and atraumatic. Eyes: EOM are normal. Pupils are equal, round, and reactive to light. Neck: Normal range of motion. Neck supple. Cardiovascular: Normal rate, regular rhythm and normal heart sounds. Pulmonary/Chest: Effort normal and breath sounds normal. Neurological: She is alert and oriented to person, place, and time. Skin: Skin is warm and dry. Psychiatric: She has a normal mood and affect. Her behavior is normal. Judgment and thought contentnormal. Assessment/Plan Gertrudis was seen today for type 2 diabetes mellitus without complication, without long-, mthfr mutation (methylenetetrahydrofolate reductase), vaginal atrophy, chronic idiopathic constipation and med refill. Diagnoses and all orders for this visit: Diabetes mellitus type 2 in obese - POC Glycosylated Hemoglobin (Hb A1C) - POCT Glucose - Canagliflozin (INVOKANA) 100 MG tablet; Take 100 mg by mouth Daily. Essential hypertension - hydrALAZINE (APRESOLINE) 10 MG tablet; Take 1 tablet by mouth 3 (Three) Times a Day. Results for orders placed or performed in visit on 08/09/16 POC Glycosylated Hemoglobin (Hb A1C) Result Value Ref Range Hemoglobin A1C 7.9 % POCT Glucose Result Value Ref Range Glucose 261 (A) 70 - 130 mg/dL documented in this encounter Plan of Treatment Upcoming Encounters Date Type Department Care Team (Late st Contact Info) Description 03/13/2024 2:45 PM EST Office Visit [facility] CARDIOLOGY [address] [facility] [place] [address] [address] Pj Ace MD [address] [facility] [address] [facility] [address] [place] [address] documented as of this encounter Procedures Procedure Name Priority Date/Time Associated Diagnosis Comments POCT GLYCOSYLATED HEMOGLOBIN (HGB A1C) Routine 08/09/2016 11:20 AM EDT Diabetes mellitus type 2 in obese POCT GLUCOSE FINGERSTICK Routine 08/09/2016 11:20 AM EDT Diabetes mellitus type 2 in obese documented in this encounter Results * (ABNORMAL) POCT Glucose (08/09/2016 11:20 AM EDT) Glucose 261(A) 70 - 130 mg/dL [facility] Blood 08/09/2016 11:2 0 AM EDT us Deepak Cortez MD POINT OF CARE TEST ORDERABL ES Final Result Performing Organization Address City/[facility]/ZIP Co de Phone Number [facility]
[address] [place] [address], [place] [phone] * POC Glycosylated Hemoglobin (Hb A1C) (08/09/2016 11:20 AM EDT) Hemoglobin A1C 7.9 % [facility] Blood 08/09/2016 11:2 0 AM EDT us Deepak Cortez MD POINT OF CARE TEST ORDERABL ES Final Result Performing Organization Address [facility] Co de Phone Number [facility]
[address] [place] [address], [place] [phone] documented in this encounter Visit Diagnoses Diagnosis Diabetes mellitus type 2 in obese- Primary Type II or unspecified type diabetes mellitus without mention of complication, not stated as uncontrolled Essential hypertension Unspecified essential hypertension documented in this encounter Care Teams Steam Gigger Relationship Specialty Start Date End Date Deepak Cortez MD PCP - General 12/31/14 12/12/16 documented as of this encounter
--- OUTSIDE RECORDS SUMMARY | 2024-02-20 09:15 | XMS_ITS | Encounter Summary ---
[facility] [address] [place] [address] Care Team Providers Care Approver Name Role Phone Deepak Cortez MD Primary Care Provider Unav ailable Encounter Details Date Type Department Care Team (Late st Contact Info) Description 07/27/2016 Documentation [facility] SLEEP MEDICINE [address] [facility] [address] [place] [address] Tao Louis Social History Tobacco Use Types Packs/Day Years [...] as of this encounter Progress Notes * Tao Louis - 07/27/2016 2:08 PM EDT Patient was in office and Dr. Lozano wrote an order for her to be set up on pap therapy. Patient filled out DME preference sheet and would like to be sent to [facility]. Complete fax to [facility]. documented in this encounter Plan of Treatment Upcoming Encounters Date Type Department Care Team (Late st Contact Info) Description 03/13/2024 2:45 PM EST Office Visit [facility] CARDIOLOGY [address] [place] [address] [place] [address] Pj Ace MD [address] [place] [address] documented as of this encounter Visit Diagnoses Not on filedocumented in this encounter Care Teams Approver Relationship Specialty Start Date End Date Deepak Cortez MD PCP - General 12/31/14 12/12/16 documented as of this encounter
--- OUTSIDE RECORDS SUMMARY | 2024-02-20 09:15 | XMS_ITS | Encounter Summary ---
[facility] Address [address] [place] [address] Care Team Providers Care Machine Clothing Replacer Name Role Phone Madelaine Norman APRN Primary Care Provider Encounter Details Date Type Department Care Team (Late st Contact Info) Description 05/07/2017 2:00 PM EST Lab [facility] [address] [facility] [address] [place] [id number] Bebeto Adams MD [address] [facility] [address] [place] [address] Other chronic pain Social History Tobacco Use [...] H[facility]PITAL [facility] [address] [place] [address] [place] [address] Pj Ace MD [address] [facility] [address] [place] [address] documented as of this encounter Procedures Procedure Name Priority Date/Time Associated Diagnosis Comments PAIN MANAGEMENT PROFILE (13 DRUGS) URINE Routine 05/07/2017 2:02 PM EST Other chronic pain documented in this encounter Results * (ABNORMAL) Pain Management Profile (13 Drugs) Urine - Urine, Clean Catch (05/07/2017 2:02 PM EST) Pathologist [facility] [place] Amphetamine, Urine Qual Negative Cutoff=1 000 ng/mL 05/16/2017 1:12 PM EST [facility] Barbiturates Screen, Urine Negative Cutoff=2 00 ng/mL 05/16/2017 1:12 PM EST [facility] Benzodiazepine Screen, Urine Negative Cutoff=2 00 ng/mL 05/16/2017 1:12 PM EST [facility] THC Screen, Urine Negative Cutoff=2 0 ng/mL 05/16/2017 1:12 PM EST [facility] Cocaine Screen, Urine Negative Cutoff=3 00 ng/mL 05/16/2017 1:12 PM EST [facility] Opiate Screen, Urine Negative Cutoff=3 00 ng/mL 05/16/2017 1:12 PM EST [facility] Comment:Opiate test includes Codeine, Morphine, Hydromorphone, Hydrocodone. Oxycodone/Oxymorpho ne, Urine Negative Cutoff=1 00 ng/mL 05/16/2017 1:12 PM EST [facility] Comment:Test includes Oxycod one and Oxymorphone Phencyclidine (PCP), Urine Negative Cutoff=2 5 ng/mL 05/16/2017 1:12 PM EST [facility] Methadone Screen, Urine Negative Cutoff=3 00 ng/mL 05/16/2017 1:12 PM EST [facility] Propoxyphene Screen Negative Cutoff=3 00 ng/mL 05/16/2017 1:12 PM EST [facility] Meperidine, Urine Negative Cutoff=2 00 ng/mL 05/16/2017 1:12 PM EST [facility] Comment: This test was developed and its performance characteristics determined by [facility]. It has not been cleared or approved by the Food and Drug Administration. Fentanyl, Urine Negative Cutoff=2 000 pg/mL 05/16/2017 1:12 PM EST [facility] Comment: Test includes Fentanyl and Norfentanyl This test was developed and its performance characteristics determined by [facility]. It has not been cleared or approved by the Food and Drug Administration. Tramadol Screen, Urine Positive(A) Cutoff=2 00 05/16/2017 1:12 PM EST [facility] Comment: ?? Tramadol (GC/MS) ? >3000 ?ng/mL Jsfhax=342 ? 01 Tramadol detected; this finding can be consistent with use of medications that include Ultram, Topalgic, Tradol, Zydol, or generic formulations. Drugs listed are healthcare sales representative of common sources of the compound detected and are not intended to include all possible sources. Creatinine, Urine 85.0 20.0 - 300.0 mg/dL 05/16/2017 1:12 PM EST [facility] Specific Carmine, UA 1.012 05/16/2017 1:12 PM EST [facility] pH, UA 5.4 4.5 - 8.9 05/16/2017 1:12 PM EST [facility] Please note Comment 05/16/2017 1:12 PM EST [facility] Comment: Drug-test results should be interpreted in the context of clinical information. Patient metabolic variables, specific drug chemistry, and specimen characteristics can affect test outcome. Technical consultation is available if a test result is inconsistent with an expected outcome. ([email or web address] or call toll-free [phone]) Drug brands, if listed herein, are trademarks of their respective owners. Urine Urine specimen collection, clean catch / Unknown Collection / Unknown 05/07/2017 2:02 PM EST 05/07/2017 2:02 PM EST Narrative [facility] - 05/16/2017 1:12 PM EST Performed at: [facility] - [facility] [address] [place], [place] [id number] Supervisor [employer]ing [employer]: Sundeep Montes MD, Phone: ??[phone] Bebeto Adams MD URINE ORDERABLES Final Result [facility] [address] [place] [address], documented in this encounter Visit Diagnoses Diagnosis Other chronic pain documented in this encounter Care Teams Machine Clothing Replacer Relationship Specialty Start Date End Date Madelaine Norman APRN [address] [place] [address] PCP - General Internal Medicine 12/13/16 09/07/17 documented as of this encounter
--- OUTSIDE RECORDS SUMMARY | 2024-02-20 09:15 | XMS_ITS | Encounter Summary ---
[facility] Address [address] [place] [address] Care Team Providers Care Technical Sales Consultant Name Role Phone Alex Davis MD Primary Care Provider [phone] Reason for Visit * Reason Onset Date Comments Shortness of Breath 12/12/2016 Encounter Details Date Type Department Care Team ([facility] st Contact Info) Description 12/12/2016 Telephone [facility] INTERNAL MEDICINE [address] [place] [address] Madelaine Norman, DIESEL FITTER MECHANIC [address] [place] [address] Shortness of Breath Social History Tobacco Use Types Packs/Day Years [...] Miscellaneous Notes * Telephone Encounter - Pamela Marcial - 12/12/2016 10:16 AM EDT TOOK 1 BLOOD PRESSURE PILL CLONIDINE STATES SHE DOESN'T FEEL LIKE SHE CAN CATCH HER BREATH AND SHE STRUGGLED TO WAKE UP. SPOKE WITH MADELAINE, TOLD PATIENT TO GO TO THE ER. PATIENT UNDERSTOOD documented in this encounter Plan of Treatment Upcoming Encounters Date Type Department Care Team (Late st Contact Info) Description 03/13/2024 2:45 PM EST Office Visit [facility] CARDIOLOGY [address] [place] [address] Pj Ace MD [address] [facility] [address] [address] documented as of this encounter Visit Diagnoses Not on filedocumented in this encounter Additional Health Concerns Infection Onset Date Last Indicated Resolved Time COVID Screen (preop/placement) 10/15/2020 10/15/2020 10/15/2020 7:48 PM EDT documented as of this encounter Care Teams Technical Sales Consultant Relationship Specialty Start Date End Date Alex Davis MD [address] [place] [address] PCP - General Family Medicine 09/05/21 documented as of this encounter
--- OUTSIDE RECORDS SUMMARY | 2024-02-20 09:15 | XMS_ITS | Encounter Summary ---
[facility] Address [address] [place] [id number] Care Team Providers Care Bar Catcher Name Role Phone Deepak Cortez MD Primary Care Provider Unav ailable Reason for Referral * Diagnostic Imaging (Routine) - Closed Specialty Diagnoses / Procedures Referred By Yodit salinas Referred To Contact Radiology Diagnoses Chronic right-sided thoracic back pain Procedures CT thoracic spine wo contrast Madelaine Norman, WEB METHODS DEVELOPER [address] [facility] [address] [place] [address] Phone: tel: fax: [facility] [address] [place] [address] Phone: tel: Referral ID Status Reason Start Date Expiration Date Visits Re quested Visits Authorized [id number] Closed 12/08/2016 12/08/2017 1 1 Reason for Visit * Reason Comments Fall pt fell last y, has back stimulator and needs referral for CT scan to check on it. Encounter Details Date Type Department Care Team (Late st Contact Info) Description 12/08/2016 2:00 PM EDT Office Visit [facility] INTERNAL MEDICINE [address] [place] [phone] Madelaine Norman, WEB METHODS DEVELOPER [address] [facility] [address] [place] [address] Chronic right-sided thoracic back pain (Primary Dx); Essential hypertension Social History Tobacco [...] Sign Reading Time Taken Comments Blood Pressure 168/88 12/08/2016 2:04 PM EDT Pulse 95 12/08/2016 2:04 PM EDT Temperature - - Respiratory Rate 16 12/08/2016 2:04 PM EDT Oxygen Saturation 97% 12/08/2016 2:04 PM EDT Inhaled Oxygen Concentration - - Weight 86 kg (189 lb 9.5 oz) 12/08/2016 2:04 PM EDT Height 157.5 cm (5' 2 ) 12/08/2016 2:04 PM EDT Body Mass Index 34.68 12/08/2016 2:04 PM EDT documented in this encounter Progress Notes * Madelaine Norman, WEB METHODS DEVELOPER - 12/08/2016 2:00 PM EDT Subjective Fall (pt fell last , has back stimulator and needs referral for CT scan to checkon it.) Gertrudis Gonzalez is a 60 y.o. female. Allergies Allergen Reactions ??? Iain Inhibitors Cough ??? Amlodipine ??? Beta Adrenergic Blockers ??? Cyclobenzaprine ??? Hydrochlorothiazide ??? Hyzaar [Losartan Potassium-Hctz] ??? Latex ??? Losartan ??? Metformin ??? Penicillins ??? Pioglitazone ??? Spironolactone History of Present Illness Called her pain mg't DR Adams who reportedly told her she needs ct scan pain is , pain is right midback at bra line, is constant, worse if lays on side or back Pt has not had dm med for 8 weeks , needs called in today, is not exercising but trying to eat healthier No cp, no soa, no vision problems, has noticed b/p has been high at home bottom number usually 88 The following portions of the patient's history were reviewed and updated as appropriate: allergies, current medications, past family history, past medical history, past social history, past surgicalhistory and problem list. Review of Systems Constitutional: Negative for appetite change, fatigue, fever and unexpected weight change. HENT: Negative. Eyes: Negative for pain and visual disturbance. Respiratory: Negative for apnea, chest tightness, shortness of breath and wheezing. Cardiovascular: Negative for chest pain, palpitations and leg swelling. Gastrointestinal: Negative for abdominal pain, blood in stool, diarrhea, nausea and vomiting. Endocrine: Negative. Genitourinary: Negative for difficulty urinating, flank pain, frequency and urgency. Musculoskeletal: Positive for back pain. Negative for joint swelling. Skin: Negative for color change and rash. Neurological: Negative for tremors and weakness. Hematological: Negative for adenopathy. Psychiatric/Behavioral: Negative for confusion and decreased concentration. The patient is not nervous/anxious. All other systems reviewed and are negative. Objective Physical Exam Constitutional: She is oriented to person, place, and time. She appears well-developed. HENT: Head: Normocephalic. Eyes: Conjunctivae are normal. Neck: Neck supple. No thyromegaly present. Cardiovascular: Normal rate and regular rhythm. Pulmonary/Chest: Effort normal and breath sounds normal. Musculoskeletal: Thoracic back: She exhibits tenderness, pain and spasm. Lymphadenopathy: She has no cervical adenopathy. Neurological: She is alert and oriented to person, place, and time. Skin: Skin is warm and dry. Psychiatric: She has a normal mood and affect. Her behavior is normal. Judgment and thought contentnormal. BP 168/88 Pulse 95 Resp 16 Ht 62 (157.5 cm) Wt 189 lb 9.5 oz (86 kg) LMP (LMP Unknown) SpO2 97% BMI 34.68 kg/m2 Assessment/Plan Problem List Items Addressed This Visit None Visit Diagnoses Chronic right-sided thoracic back pain - Primary Relevant Orders CT thoracic spine wo contrast Essential hypertension Relevant Medications CloNIDine (CATAPRES) 0.1 MG tablet She will get her meds from [employer] [facility] for her dm, I will see her in 4 mos then to check documented in this encounter Plan of Treatment Upcoming Encounters Date Type Department Care Team (Late st Contact Info) Description 03/13/2024 2:45 PM EST Office Visit [facility] CARDIOLOGY [address] [place] [address] [place] [phone] Pj Ace MD [address] [facility] [address] [place] [address] documented as of this encounter Results * CT thoracic spine [...] by Dr. Nelson Desouza MD. Madelaine Norman WEB METHODS DEVELOPER IMG CT ORDERABLES Final Res ult documented in this encounter Visit Diagnoses Diagnosis Chronic right-sided thoracic back pain- Primary Essential hypertension Unspecified essential hypertension Chronic right-sided thoracic back pain documented in this encounter Care Teams Bar Catcher Relationship Specialty Start Date End Date Deepak Cortez MD PCP - General 12/31/14 12/12/16 documented as of this encounter
--- OUTSIDE RECORDS SUMMARY | 2024-02-20 09:15 | XMS_ITS | Encounter Summary ---
Author Organization [facility] Address [address] [place] [address] Care Team Providers Care Psychiatric Specialist Name Role Phone Madelaine Norman RELIEF MAP MODELER Primary Care Provider [phone] Reason for Visit * Reason Comments Follow-up discuss diabetes med s, elevated blood pressure Encounter Details Date Type Department Care Team (Late st Contact Info) Description 01/04/2017 11:15 AM EDT Office Visit [facility] INTERNAL MEDICINE [address] [place] [address] Madelaine Norman, RELIEF MAP MODELER [address] [place] [address] Benign essential hypertension (Primary Dx); Diabetes mellitus type 2 in obese; RLS (restless legs syndrome); Nocturnal muscle cramps Social History Tobacco Use Types Packs/Day Years [...] Sign Reading Time Taken Comments Blood Pressure 146/84 01/04/2017 11:22 AM EDT Pulse 79 01/04/2017 11:22 AM EDT Temperature - - Respiratory Rate - - Oxygen Saturation 98% 01/04/2017 11:22 AM EDT Inhaled Oxygen Concentration - - Weight 84.4 kg (186 lb) 01/04/2017 11:22 AM EDT Height - - Body Mass Index 34.02 12/08/2016 2:04 PM EDT documented in this encounter Progress Notes * Madelaine Norman, RELIEF MAP MODELER - 01/04/2017 11:15 AM EDT Subjective Follow-up (discuss diabetes meds, elevated blood pressure) Gertrudis Gonzalez is a 61 y.o. female. Allergies Allergen Reactions ??? Iain Inhibitors Cough ??? Amlodipine ??? Beta Adrenergic Blockers ??? Cyclobenzaprine ??? Hydrochlorothiazide ??? Hyzaar [Losartan Potassium-Hctz] ??? Latex ??? Losartan ??? Metformin ??? Penicillins ??? Pioglitazone ??? Spironolactone History of Present Illness B/p has been running high, went to supervising nurse and he changed her medications, he is doing an echothis week Glucose has been 157-171, has been taking meds as ordered , checking glucose at home once a day Pt c/o yomi horses , jerome if stretches her feet , goes up to calves of legs, brings her out of the bed every night, does take K w/o relief , x 1 month , has tried muscle relaxers w/o relief , legs jerk on the inside and won't settle down The following portions of the patient's history were reviewed and updated as appropriate: allergies, current medications and past social history. Review of Systems Constitutional: Negative for fatigue. Respiratory: Negative for apnea, chest tightness and shortness of breath. Cardiovascular: Negative for chest pain, palpitations and leg swelling. Musculoskeletal: Positive for myalgias. Skin: Negative for color change. Psychiatric/Behavioral: The patient is not nervous/anxious. All other [...] contentnormal. Nursing note and vitals reviewed. BP 146/84 Pulse 79 Wt 186 lb (84.4 kg) LMP (LMP Unknown) SpO2 98% BMI 34.02 kg/m2 Assessment/Plan Problem List Items Addressed This Visit Cardiovascular and Mediastinum Benign essential hypertension - Primary Relevant Medications CARTIA XT 240 MG 24 hr capsule Endocrine Diabetes mellitus type 2 in obese Relevant Orders POC Glycosylated Hemoglobin (Hb A1C) (Completed) POCT Glucose (Completed) Other Visit Diagnoses RLS (restless legs syndrome) Relevant Medications rOPINIRole (REQUIP) 0.25 MG tablet Nocturnal muscle cramps Relevant Orders Magnesium Basic metabolic panel Results for orders placed or performed in visit on 01/04/17 POC Glycosylated Hemoglobin (Hb A1C) Result Value Ref Range Hemoglobin A1C 7.9 % POCT Glucose Result Value Ref Range Glucose 140 (A) 70 - 130 mg/dL labs today, id all normal we will do trial of requip, keep all appts with cardiology for htn and echo documented in this encounter Plan of Treatment Upcoming Encounters Date Type Department Care Team (Late st Contact Info) Description 03/13/2024 2:45 PM EST Office Visit [facility] CARDIOLOGY [address] [place] [address] [place] [address] Pj Ace MD [address] [facility] [address] [place] [address] documented as of this encounter Procedures Procedure Name Priority Date/Time Associated Diagnosis Comments MAGNESIUM Routine 01/04/2017 11:43 AM EDT Nocturnal muscle cramps BASIC METABOLIC PANEL Routine 01/04/2017 11:43 AM EDT Nocturnal muscle cramps POCT GLYCOSYLATED HEMOGLOBIN (HGB A1C) Routine 01/04/2017 11:34 AM EDT Diabetes mellitus type 2 in obese POCT GLUCOSE FINGERSTICK Routine 01/04/2017 11:31 AM EDT Diabetes mellitus type 2 in obese documented in this encounter Results * (ABNORMAL) Basic metabolic panel (01/04/2017 11:43 AM EDT) Glucose 158(H) 70 - 100 mg/dL 01/04/2017 4:18 PM EDT [facility] BUN 21 9 - 23 mg/dL 01/04/2017 4:18 PM EDT [facility] Creatinine 0.60 0.60 - 1.30 mg/dL 01/04/2017 4:18 PM EDT [facility] Sodium 139 132 - 146 mmol/L 01/04/2017 4:18 PM EDT [facility] Potassium 4.1 3.5 - 5.5 mmol/L 01/04/2017 4:18 PM EDT [facility] Chloride 104 99 - 109 mmol/L 01/04/2017 4:18 PM EDT [facility] CO2 27.0 20.0 - 31.0 mmol/L 01/04/2017 4:18 PM EDT [facility] Calcium 9.7 8.7 - 10.4 mg/dL 01/04/2017 4:18 PM EDT [facility] eGFR Non Amer 102 >60 mL/min/1.7 3 01/04/2017 4:18 PM EDT [facility] BUN/Creatinine Ratio 35.0(H) 7.0 - 25.0 01/04/2017 4:18 PM EDT [facility] Anion Gap 8.0 3.0 - 11.0 mmol/L 01/04/2017 4:18 PM EDT [facility] Blood Venipuncture / Unknown 01/04/2017 11:43 AM EDT 01/04/2017 11:43 AM EDT [facility] - 01/04/2017 4:18 PM EDT National Kid[employer] Guidelines Stage ? Description ?GFR 1 ? Normal or High ? 90+ 2 ? Mild decrease ?60-89 3 ? Moderate decrease ??30-59 4 ? Severe decrease ?15-29 5 ? Kidney failure ? <15 us Madelaine Norman APRN LAB BLOOD ORDERABLES Final Result Performing Organization Address [facility] de Phone Number [facility]
[address] [place] [address], * Magnesium (01/04/2017 11:43 AM EDT) Magnesium 2.2 1.3 - 2.7 mg/dL 01/04/2017 4:18 PM EDT [facility] Blood Venipuncture / Unknown 01/04/2017 11:43 AM EDT 01/04/2017 11:43 AM EDT us Madelaine Norman APRN LAB BLOOD ORDERABLES Final Result Performing Organization Address [facility] de Phone Number [facility]
[address] [place] [address], [place] [phone] * POC Glycosylated Hemoglobin (Hb A1C) (01/04/2017 11:34 AM EDT) Hemoglobin A1C 7.9 % [facility] Blood 01/04/2017 11:3 4 AM EDT us Madelaine Norman APRN POINT OF CARE TEST ORDERABL ES Final Result Performing Organization Address [facility] de Phone Number [facility]
[address] [place] [address], * (ABNORMAL) POCT Glucose (01/04/2017 11:31 AM EDT) Glucose 140(A) 70 - 130 mg/dL [facility] Blood 01/04/2017 11:3 1 AM EDT us Madelaine Norman RELIEF MAP MODELER POINT OF CARE TEST ORDERABL ES Edited Result - Final [facility]
[address] [place] [address], documented in this encounter Visit Diagnoses Diagnosis Benign essential hypertension- Primary Essential hypertension, benign Diabetes mellitus type 2 in obese Type II or unspecified type diabetes mellitus without mention of complication, not stated as uncontrolled RLS (restless legs syndrome) Restless legs syndrome (RLS) Nocturnal muscle cramps Cramp of limb documented in this encounter Care Teams Psychiatric Specialist Relationship Specialty Start Date End Date Madelaine Norman, RELIEF MAP MODELER [address] [place] [address] PCP - General Internal Medicine 12/13/16 09/07/17 documented as of this encounter
--- OUTSIDE RECORDS SUMMARY | 2024-02-20 09:15 | XMS_ITS | Encounter Summary ---
[facility] Organization [facility] Address [address] [place] [address] Care Team Providers Care Childcare Worker Name Role Phone Deepak Cortez MD Primary Care Provider Unav ailable Reason for Visit * Reason Comments Follow-up * Consultation (Routine) - Closed Specialty Diagnoses / Procedures Referred By Yodit salinas Referred To Contact Pulmonary Disease Diagnoses Obesity with sleep apnea Bebeto Adams MD [address] [facility] [address] [place] [address] Phone: tel: fax: Referral ID Status Reason Start Date Expiration Date V isits Requested Visits Authorized [id number] Closed Specialty Services Required 05/23/2016 05/23/2017 1 1 Encounter Details Date Type Department Care Team (Late st Contact Info) Description 07/27/2016 1:30 PM EDT Office Visit [facility] SLEEP MEDICINE [address] [facility] [address] [place] [address] Denis Lozano MD [address] [facility] [address] [place] [address] Obstructive sleep apnea, adult (Primary Dx) Social History Tobacco Use Types [...] Sign Reading Time Taken Comments Blood Pressure 198/92 07/27/2016 1:44 PM EDT Pulse 108 07/27/2016 1:44 PM EDT Temperature - - Respiratory Rate - - Oxygen Saturation 94% 07/27/2016 1:44 PM EDT Inhaled Oxygen Concentration - - Weight 86.2 kg (190 lb) 07/27/2016 1:44 PM EDT Height 157.5 cm (5' 2 ) 07/27/2016 1:44 PM EDT Body Mass Index 34.75 07/27/2016 1:44 PM EDT documented in this encounter Patient Instructions * Patient Instructions* Denis Lozano MD - 07/27/2016 1:30 PM EDT Images from the original note were not included. Sleep Apnea Sleep apnea is a condition in which breathing pauses or becomes shallow during sleep. Episodes of sleep apnea usually last 10 seconds or longer, and they may occur as many as 20 times an hour. Sleep apnea disrupts your sleep and keeps your body from getting the rest that it needs. This condition can increase your risk of certain health problems, including: ?? Heart attack. ?? Stroke. ?? Obesity. ?? Diabetes. ?? Heart failure. ?? Irregular heartbeat. There are three kinds of sleep apnea: ?? Obstructive sleep apnea. This kind is caused by a blocked or collapsed airway. ?? Central sleep apnea. This kind happens when the part of the brain that controls breathing does not send the correct signals to the muscles that control breathing. ?? Mixed sleep apnea. This is a combination of obstructive and central sleep apnea. CAUSES The most common cause of this condition is a collapsed or blocked airway. An airway can collapse orbecome blocked if: ?? Your throat muscles are abnormally relaxed. ?? Your tongue and tonsils are larger than normal. ?? You are overweight. ?? Your airway is smaller than normal. RISK FACTORS This condition is more likely to develop in people who: ?? Are overweight. ?? Smoke. ?? Have a smaller than normal airway. ?? Are elderly. ?? Are male. ?? Drink alcohol. ?? Take sedatives or tranquilizers. ?? Have a family history of sleep apnea. SYMPTOMS Symptoms of this condition include: ?? Trouble staying asleep. ?? Daytime sleepiness and tiredness. ?? Irritability. ?? Loud snoring. ?? Morning headaches. ?? Trouble concentrating. ?? Forgetfulness. ?? Decreased interest in sex. ?? Unexplained sleepiness. ?? Mood swings. ?? Personality changes. ?? Feelings of depression. ?? Waking up often during the night to urinate. ?? Dry mouth. ?? Sore throat. DIAGNOSIS This condition may be diagnosed with: ?? A medical history. ?? A physical exam. ?? A series of tests that are done while you are sleeping (sleep study). These tests are usually done in a sleep lab, but they may also be done at home. TREATMENT Treatment for this condition aims to restore normal breathing and to ease symptoms during sleep. Itmay involve managing health issues that can affect breathing, such as high blood pressure or obesity. Treatment may include: ?? Sleeping on your side. ?? Using a decongestant if you have nasal congestion. ?? Avoiding the use of depressants, including alcohol, sedatives, and narcotics. ?? Losing weight if you are overweight. ?? Making changes to your diet. ?? Quitting smoking. ?? Using a device to open your airway while you sleep, such as: An oral appliance. This is a custom-made mouthpiece that shifts your lower jaw forward. A continuous positive airway pressure (CPAP) device. This device delivers oxygen to your airway through a mask. A nasal expiratory positive airway pressure (EPAP) device. This device has valves that you put intoeach nostril. A bi-level positive airway pressure (BPAP) device. This device delivers oxygen to your airway through a mask. ?? Surgery if other treatments do not work. During surgery, excess tissue is removed to create a wider airway. It is important to get treatment for sleep apnea. Without treatment, this condition can lead to: ?? High blood pressure. ?? Coronary artery disease. ?? (Men) An inability to achieve or maintain an erection (impotence). ?? Reduced thinking abilities. HOME CARE INSTRUCTIONS ?? Make any lifestyle changes that your health care provider recommends. ?? Eat a healthy, well-balanced diet. ?? Take nyrf-ksu-qgdfhax and prescription medicines only as told by your health care provider. ?? Avoid using depressants, including alcohol, sedatives, and narcotics. ?? Take steps to lose weight if you are overweight. ?? If you were given a device to open your airway while you sleep, use it only as told by your health care provider. ?? Do not use any tobacco products, such as cigarettes, chewing tobacco, and e- cigarettes. If you need help quitting, ask your health care provider. ?? Keep all follow-up visits as told by your health care provider. This is important. SEEK MEDICAL CARE IF: ?? The device that you received to open your airway during sleep is uncomfortable or does not seem to be working. ?? Your symptoms do not improve. ?? Your symptoms get worse. SEEK IMMEDIATE MEDICAL CARE IF: ?? You develop chest pain. ?? You develop shortness of breath. ?? You develop discomfort in your back, arms, or stomach. ?? You have trouble speaking. ?? You have weakness on one side of your body. ?? You have drooping in your face. These symptoms may represent a serious problem that is an emergency. Do not wait to see if the symptoms will go away. Get medical help right away. Call your local emergency services (911 in the [place] Do not drive yourself to the hospital. This information is not intended to replace advice given to you by your health care provider. Make sure you discuss any questions you have with your health care provider. Document Released: 03/09/2003 Document Revised: 04/14/2016 Document Reviewed: 12/27/2015 [employer] Patient Education ??2016 [employer] documented in this encounter Progress Notes * Denis Lozano MD - 07/27/2016 1:30 PM EDT Subjective Gertrudis Gonzalez is a 60 y.o. female is here today for follow-up. She is followed here with obstructive sleep apnea. Her primary care physician is Dr. Cortez. She saw also seen by Dr. Adams History of Present Illness Patient was last seen February 09, 2015. She has mild obstructive sleep apnea seen on her previous sleep study with an AHI of 14.7. She showed significant positional effect. She has hypertension chronic pain and obesity. When we saw her last she was to work on weight loss and lateral position sleep. She has not been able to lose weight and has actually gained slightly. She says she's not resting well she awakens with pain in her legs and lower back. She says she sleeps mostly on her side. If she sleeps on her back she has problems with nightmares. She is willing now to consider using CPAP. The following portions of the patient's history were reviewed and updated as appropriate: allergies, current medications and problem list. Review of Systems Constitutional: Positive for diaphoresis. HENT: Positive for sinus pressure. Eyes: Positive for visual disturbance. Respiratory: Positive for cough. Cardiovascular: Negative. Gastrointestinal: Positive for constipation. Endocrine: Positive for polydipsia and polyuria. Genitourinary: Negative. Musculoskeletal: Positive for arthralgias, back pain and joint swelling. Skin: Negative. Allergic/Immunologic: Positive for environmental allergies. Neurological: Negative. Hematological: Negative. Psychiatric/Behavioral: Positive for dysphoric mood. Brady scores only 05/26 Objective BP (!) 198/92 Pulse 108 Ht 62 (157.5 cm) Wt 190 lb (86.2 kg) SpO2 94% BMI 34.75 kg/m2 Physical Exam Constitutional: She is oriented to person, place, and time. She appears well- developed and well-nourished. She is obese. HENT: Head: Normocephalic and atraumatic. She has nasal airway narrowing and Mallampati class III anatomy Eyes: EOM are normal. Pupils are equal, round, and reactive to light. Neck: Normal range of motion. Neck supple. Cardiovascular: Normal rate, regular rhythm and normal heart sounds. Pulmonary/Chest: Effort normal and breath sounds normal. Abdominal: Soft. Bowel sounds are normal. Musculoskeletal: Normal range of motion. She exhibits no edema. Neurological: She is alert and oriented to person, place, and time. Skin: Skin is warm and dry. Psychiatric: She has a normal mood and affect. Her behavior is normal. Assessment/Plan Gertrudis was seen today for follow-up. Diagnoses and all orders for this visit: Obstructive sleep apnea, adult - Detailed AutoPAP Order Patient previously seen to have mild obstructive sleep apnea. She did show significant positional effect. She is willing now to consider CPAP. We will try her on an auto bilevel. She is to try nasal mask. She is continued encouraged to lose weight and to practice lateral position sleep. We will seeher in 2 months and download her machine see if it's being effective in controlling her respiratoryevents. She is to contact us earlier symptoms worsen. Denis Lozano MD [facility] Pulmonary and Critical Care Medicine documented in this encounter Plan of Treatment Upcoming Encounters Date Type Department Care Team (Late st Contact Info) Description 03/13/2024 2:45 PM EST Office Visit [facility] CARDIOLOGY [address] [place] [address] [place] [address] Pj Ace MD [address] [facility] [address] [place] [address] documented as of this encounter Visit Diagnoses Diagnosis Obstructive sleep apnea, adult- Primary documented in this encounter Care Teams Childcare Worker Relationship Specialty Start Date End Date Deepak Cortez MD PCP - General 12/31/14 12/12/16 documented as of this encounter
--- OUTSIDE RECORDS SUMMARY | 2024-02-20 09:15 | XMS_ITS | Encounter Summary ---
[facility] Address [address] [place] [address] Care Team Providers Care Insurance Coder Name Role Phone Deepak Cortez MD Primary Care Provider Unav ailable Reason for Visit * Reason Comments Med Refill Encounter Details Date Type Department Care Team (Late st Contact Info) Description 09/21/2016 Refill [facility] INTERNAL MEDICINE [address] [place] [address] Deepak Cortez MD Social History Tobacco Use Types Packs/Day Years [...] WOMEN CARDIOLOGY [address] [place] [address] [place] [address] jP Ace MD [address] [facility] [address] [place], [place] [id number] documented as of this encounter Visit Diagnoses Not on filedocumented in this encounter Care Teams Insurance Coder Relationship Specialty Start Date End Date Deepak Cortez MD PCP - General 12/31/14 12/12/16 documented as of this encounter
--- OUTSIDE RECORDS SUMMARY | 2024-02-20 09:15 | XMS_ITS | Encounter Summary ---
[facility] Address [address] [place] [address] Care Team Providers Care Cigarette Machine Filler Name Role Phone Deepak Cortez MD Primary Care Provider Unav ailable Reason for Referral * Consultation (Routine) - Closed Specialty Diagnoses / Procedures Referred By Yodit salinas Referred To Contact Diagnoses Pelvic pressure in female Madelaine Norman APRN [address] [facility] [address] [place] [address] Phone: tel: fax: Jeri Arnett MD [address] [place] [address] Phone: tel: fax: Referral ID Status Reason Start Date Expiration Date V isits Requested Visits Authorized [id number] Closed Specialty Services Required 11/20/2016 11/20/2017 1 1 Reason for Visit * Reason Comments Hypertension Encounter Details Date Type Department Care Team (Late st Contact Info) Description 11/20/2016 10:45 AM EDT Office Visit [facility] INTERNAL MEDICINE [address] [place] [phone] Madelaine Norman, PIPING SUPERVISOR [address] [facility] [address] [place] [address] Benign essential hypertension (Primary Dx); Pelvic pressure in female Social History Tobacco Use Types Packs/Day Years [...] Sign Reading Time Taken Comments Blood Pressure 170/98 11/20/2016 10:55 AM EDT Pulse 82 11/20/2016 10:55 AM EDT Temperature 36.6 ??C (97.8 ??F) 11/20/2016 10:55 AM E DT Respiratory Rate - - Oxygen Saturation 98% 11/20/2016 10:55 AM EDT Inhaled Oxygen Concentration - - Weight - - Height - - Body Mass Index - - documented in this encounter Progress Notes * Madelaine Norman APRN - 11/20/2016 11:17 AM EDTAssociated Problem(s): Primary hypertension Hypertension is unchanged. Medication changes per orders. Blood pressure will be reassessed in 4 weeks. * Madelaine Norman APRN - 11/20/2016 10:45 AM EDT Subjective Hypertension Gertrudis Gonzalez is a 60 y.o. female. Allergies Allergen Reactions ??? Iain Inhibitors Cough ??? Amlodipine ??? Beta Adrenergic Blockers ??? Cyclobenzaprine ??? Hydrochlorothiazide ??? Hyzaar [Losartan Potassium-Hctz] ??? Latex ??? Losartan ??? Metformin ??? Penicillins ??? Pioglitazone ??? Spironolactone History of Present Illness Has been checking b/p at home usually 170's/aoo's, no cp, no soa 2) had mesh implant in 2011 , having bottom pressure and along pelvis The following portions of the patient's history were reviewed and updated as appropriate: allergies, current medications, past family history, past medical history, past social history, past surgicalhistory and problem list. Review of Systems Genitourinary: Groin pressure All other systems reviewed and are negative. Objective Physical Exam BP 170/98 (BP Location: Left arm) Pulse 82 Temp 97.8 ??F (36.6 ??C) LMP (LMP Unknown) SpO2 98% Assessment/Plan Problem List Items Addressed This Visit Cardiovascular and Mediastinum Benign essential hypertension - Primary Hypertension is unchanged. Medication changes per orders. Blood pressure will be reassessed in 4 weeks. Relevant Medications hydrALAZINE (APRESOLINE) 25 MG tablet Other Visit Diagnoses Pelvic pressure in female Relevant Orders Ambulatory Referral to Urology rtc 4 weeks documented in this encounter Plan of Treatment Upcoming Encounters Date Type Department Care Team (Late st Contact Info) Description 03/13/2024 2:45 PM EST Office Visit [facility] CARDIOLOGY [address] [place] [address] [place] [address] Pj Ace MD [address] [facility] [address] [facility] [address] [place] [address] Scheduled Referrals Name Type Priority Associated Diagnoses Order Schedule Ambulatory Referral to Urology Outpatient Referral Routine Pelvic pressure in female Ordered: 11/20/2016 documented as of this encounter Visit Diagnoses Diagnosis Benign essential hypertension- Primary Essential hypertension, benign Pelvic pressure in female documented in this encounter Care Teams Cigarette Machine Filler Relationship Specialty Start Date End Date Deepak Cortez MD PCP - General 12/31/14 12/12/16 documented as of this encounter
--- OUTSIDE RECORDS SUMMARY | 2024-02-20 09:15 | XMS_ITS | Encounter Summary ---
[facility] Address [address] [place] [address] Care Team Providers Care Compliance Vice President Name Role Phone Madelaine Norman APRN Primary Care Provider Reason for Visit * Reason Comments Tailbone Pain Goes down L leg and into foot Encounter Details Date Type Department Care Team (Late st Contact Info) Description 03/22/2017 1:45 PM EST Office Visit [facility] PAIN [facility]NAGEMENT [address] [phone] Bebeto Adams MD [address] [address] Meningeal adhesions/lumbar arachnoiditis; Postlaminectomy syndrome of lumbar region; Herniated lumbar intervertebral disc; Lumbar facet arthropathy/lumbar spondylosis without myelopathy; Sacroiliac joint dysfunction of left side; Myofascial pain syndrome; Obstructive sleep apnea, adult; Moderate obesity; Diabetes mellitus type 2 in obese; History of migraine headaches; Anxiety and depression; Insomnia, unspecified type; Physical deconditioning Social History Tobacco Use Types [...] Sign Reading Time Taken Comments Blood Pressure 135/86 03/22/2017 1:17 PM EST Pulse 79 03/22/2017 1:17 PM EST Temperature 36.2 ??C (97.2 ??F) 03/22/2017 1:17 PM ES T Respiratory Rate 16 03/22/2017 1:17 PM EST Oxygen Saturation 95% 03/22/2017 1:17 PM EST Inhaled Oxygen Concentration - - Weight 85.3 kg (188 lb) 03/22/2017 1:17 PM EST Height 157.5 cm (5' 2 ) 03/22/2017 1:17 PM EST Body Mass Index 34.39 03/22/2017 1:17 PM EST documented in this encounter Progress Notes * Bebeto Adams MD - 03/22/2017 1:45 PM EST Chief Complain: I have pain in my buttocks and into my left leg down to my left foot. ? Brief History: Ms. Gonzalez returns to the clinic for evaluation of her chronic lower back and left lower extremity pain and possible SCS reprogramming. Spinal cord stimulator device system: Patient underwent implantation of her spinal cord stimulator device system on December 31, [address] Damien Berg. [employer] Pent[employer] lead with the top electrodes projecting at the level of the superior endplate of the T7 vertebral body. IPG: Prot??g?? Pain level: 4/10 (before reprogramming) down to 0-1/10 (after reprogramming) Pain level ranges from 1/10 to 10/10 with the use of her spinal cord stimulator with certain activities and during the night. Pain location: Left lower back, buttocks, and [...] Tylenol without side effects. I have reviewed [facility] #[id number] consistent with medication reconciliation. Comorbid factors: Depression and anxiety: Patient reports improvement of her depression and anxiety. She is dealing with more anxiety. She continues under the psychiatric care of Dr. Jaime Burks. Patient continues on Pristiq, Geodon, trazodone, Seroquel. She continues CBT with Yoanna Osman. Physical deconditioning and noncompliance: She has not yet resumed water therapy or physical therapy Sleep disturbance: Patient underwent a sleep study 07/29/2016. Patient stopped using her CPAP machine. She uses a mouth guard Obesity: Patient has not followed up with [facility] despite medical advice. Diabetes: NIDDM, not controlled. No meds. No compliance. Review of New Diagnostic Studies: CT SCAN OF THE THORACIC SPINE WO [...] the level of T7. There are mild diffuseosteoarthritic changes. There is no compression fracture or subluxation. There is no spinal stenosis. ? Previous Diagnostic studies: UDS on 07/27/2016, appropriate UDS [...] other systems reviewed and are negative. BP 135/86 (BP Location: Right arm, Patient Position: Sitting, Cuff Size: Large Adult) Pulse 79 Temp 97.2 ??F (36.2 ??C) (Temporal Artery ) Resp 16 Ht 157.5 cm (62 ) Wt 85.3 kg (188 lb) LMP (LMP Unknown) SpO2 95% BMI 34.39 kg/m2 Physical Exam Neurologic Exam Constitutional General [...] her stimulator device for a total of 1033 hours since last reprogramming, and 12,221 lifetime hours (24 hours per day).Analysis of impedance reveals normal impedance for all contacts. The spinal cord stimulator device was reprogrammed under my supervision by adjusting electrode polarities, pulse width, pulse rate, amplitudes, BurstDR, and all five programs were adjusted, as follows; Program THREE (best program) Electrode polarities: 1+, 2+, 6- Amplitude: 1.2-2 mA Pulse width: 1000 mcs Intraburst rate: 500 Hz Pulse Rate: 40 Hz Micro-dosin:90 Time spent reprogrammin minutes. A copy of the telemetry report will be scanned in the patient's chart ?? ASSESSMENT: 1. Meningeal adhesions/lumbar arachnoiditis 2. Postlaminectomy syndrome of lumbar region 3. Herniated lumbar intervertebral disc 4. Lumbar facet arthropathy/lumbar spondylosis without myelopathy 5. Sacroiliac joint dysfunction of left side 6. Myofascial pain syndrome 7. Obstructive sleep apnea, adult 8. Moderate obesity 9. Diabetes mellitus type 2 in obese 10. History of migraine headaches 11. Anxiety and depression 12. Insomnia, unspecified type 13. Physical deconditioning PLAN: Patient's chronic pain condition has improved with the use of her spinal cord stimulator device. Patient continues to struggle with anxiety, depression, insomnia, PATTIE (no compliance with CPAP),and reoccurring left lower extremity pain. Therefore, I have proposed the following plan: 1. Follow-up on an as needed basis. If patient continues to struggle with pain, then, we may proceed with diagnostic and therapeutic left L4-L5 and left L5-S1 transforaminal epidural steroid injection. Also, we could consider revision of her SCS lead versus adding a percutaneous lead on the left side of the posterior epidural space depending on X-ray findings. 2. Diagnostics: AP X-ray thoracic spine for lead assessment 3. Long-term rehabilitation efforts: a. Resume comprehensive physical therapy program b. Resume water therapy c. Follow-up at [facility] d. Follow-up with Dr. Diogenes Neville for cognitive behavioral therapy, biofeedback, and CPAP compliance e. Follow-up with Dr. Burks for her unrelenting anxiety, depression and insomnia f. The patient does not have a history [...] alcohol consumption 4. Pharmacological measures, as follows: a. Continue topiramate 50 mg twice daily b. Continue trazodone 50-100 mg each bedtime for insomnia c. Continue diclofenac 50 mg two times a day when necessary for mild to moderate acute breakthroughpain. I have instructed the patient not to [...] to proceed accordingly. I spent 30 minutes [id number] with the patient, of which 20 minutes [...] of spinal cord stimulation Patient Care Team: Madelaine Norman APRN as PCP - General (Internal Medicine) Bebeto Adams MD as Consulting Physician (Pain Medicine) Damien Berg MD as Surgeon (Neurosurgery) Leidy Robertson MD as Consulting Physician (Internal Medicine) New Medications Ordered This Visit Medications ??? NIFEdipine XL (PROCARDIA XL) 30 MG 24 hr tablet Sig: Take 30 mg by mouth Daily. Future Appointments Date Time Provider Department Center 04/06/2017 11:00 AM Madelaine Norman APRN [facility] None Bebeto Adams MD ? documented in this encounter Plan of Treatment Upcoming Encounters Date Type Department Care Team (Late st Contact Info) Description 03/13/2024 2:45 PM EST Office Visit [facility] CARDIOLOGY [address] [place] [address] [place] [address] Pj Ace MD [address] [facility] [address] [place] [address] documented as of this encounter Procedures Procedure Name Priority Date/Time Associated Diagnosis Comments SCANNED - TELEMETRY 03/22/2017 documented in this encounter Results * SCANNED - TELEMETRY (03/22/2017) Anatomical Region Laterality Modality Other us Bebeto [...] Myofascial pain syndrome Unspecified myalgia and myositis Obstructive sleep apnea, adult Moderate obesity Diabetes mellitus type 2 in obese Type II or unspecified type diabetes mellitus without mention of complication, not stated as uncontrolled History of migraine headaches Anxiety and depression Insomnia, unspecified type Physical deconditioning Muscular wasting and disuse atrophy, not elsewhere classified documented in this encounter Care Teams Compliance Vice President Relationship Specialty Start Date End Date Madelaine Norman, MUSHROOM PRESS OPERATOR [address] [facility] [address] [place] [address] PCP - General Internal Medicine 12/13/16 09/07/17 documented as of this encounter
--- OUTSIDE RECORDS SUMMARY | 2024-02-20 09:15 | XMS_ITS | Encounter Summary ---
[facility] Address [address] [place] [address] Care Team Providers Care Senior Clinical Sas Programmer Name Role Phone Deepak Cortez MD Primary Care Provider Unav ailable Reason for Visit * Reason Comments Follow-up Encounter Details Date Type Department Care Team (Late st Contact Info) Description 08/17/2016 7:00 AM EDT Office Visit [facility] PAIN [facility]NAGEMENT [address] [phone] Bebeto Adams MD [address] [address] Postlaminectomy syndrome of lumbar region; Meningeal adhesions/lumbar arachnoiditis; Lumbar facet arthropathy/lumbar spondylosis without myelopathy; Herniated lumbar intervertebral disc; Sacroiliac joint dysfunction of left side; Myofascial pain syndrome; History of migraine headaches; Moderate obesity; Obstructive sleep apnea, adult; Benign essential hypertension; Diabetes mellitus type 2 in obese; Insomnia, [...] Sign Reading Time Taken Comments Blood Pressure 154/89 08/17/2016 10:05 AM EDT Pulse 99 08/17/2016 10:05 AM EDT Temperature 36.6 ??C (97.8 ??F) 08/17/2016 10:05 AM E DT Respiratory Rate 20 08/17/2016 10:05 AM EDT Oxygen Saturation 98% 08/17/2016 10:05 AM EDT Inhaled Oxygen Concentration - - Weight 83.5 kg (184 lb) 08/17/2016 10:05 AM EDT Height 157.5 cm (5' 2 ) 08/17/2016 10:05 AM EDT Body Mass Index 33.65 08/17/2016 10:05 AM EDT documented in this encounter Progress Notes * Bebeto Adams MD - 08/17/2016 7:00 AM EDT Chief Complain: I did very well after the last reprogramming. After spending a night in the hospital taking care of my mother, I started having pain on my left side. ? Brief History: Ms. Gonzalez returns to the clinic for evaluation of her chronic pain and possible SCSreprogramming. Spinal cord stimulator device system: Patient underwent implantation of her spinal cord stimulator device system on December 31, [address] Damien Berg. [employer] Penta lead with the top electrodes projecting at the level of the superior endplate of the T7 vertebral body. IPG: Prot??g?? Pain level: 6/10 (before reprogramming) down to 3/10 (after reprogramming) Pain level ranges from 1/10 to 6/10 (down in comparison to last visit) with the spinal cord stimulator on with certain activities and during the night. Pain location: Left lower back and left leg Quality of pain: Aching Radiation of pain: From the lower back to the posterior aspect of her left thigh, her left calf andinto the plantar aspect of her left foot Current analgesics: ice and heat in the areas of her chronic pain, SalonPas, baclofen, tramadol, diclofenac, Lidocaine Patches and Tylenol without side effects. I have reviewed [facility] #[id number], is consistent with medication reconciliation. Comorbid factors: [...] has been scheduled for follow up with [facility]. Diabetes: NIDDM, not controlled. No meds. No compliance. Review of New Diagnostic studies: UDS on 07/27/2016, appropriate Diagnostic studies UDS on 03/07/2016, appropriate X-rays of the [...] Review of Systems Respiratory: Positive for apnea. Musculoskeletal: Positive for back pain and myalgias. Neurological: Positive for headaches. Psychiatric/Behavioral: Positive for agitation and sleep disturbance. The patient is nervous/anxious. All other systems reviewed and are negative. BP 154/89 (BP Location: Left arm, Patient Position: Sitting) Pulse 99 Temp 97.8 ??F (36.6 ??C) (Temporal Artery ) Resp 20 Ht 62 (157.5 cm) Wt 184 lb (83.5 kg) SpO2 98% BMI 33.65 kg/m2 Physical Exam Neurologic Exam Constitutional General [...] to kennedy. Coordination: normal balance??and??negative Romberg's sign. Psychiatric Judgment and insight: Normal. Orientation to person, place, and time: Normal. Recent and remote memory: Intact. Mood and affect: Normal. ? PROCEDURE: Analysis of the spinal cord stimulator device with complex spinal cord stimulator reprogramming Analysis of the spinal cord stimulator device reveals that the patient has used her stimulator device for a total of 222 hours since last reprogramming, and 9652 lifetime hours (24 hours per day). Analysis of impedance reveals normal impedance for all contacts. The spinal cord stimulator device was reprogrammed under my supervision by adjusting electrode polarities, pulse width, pulse rate, amplitudes, BurstDR, by recreating all four programs and adding onenew programs for a total of five programs, as follows; Program THREE (best program) Electrode polarities: 1+, 2-, 6- Amplitude: 6.3 mA Pulse width: 437 mcs Pulse Rate: 60 Hz Time spent reprogrammin minutes. A copy of [...] obesity 9. Obstructive sleep apnea, adult 10. Benign essential hypertension 11. Diabetes mellitus type 2 in obese 12. Insomnia, unspecified type 13. Generalized anxiety disorder 14. Physical deconditioning PLAN: Patient's chronic pain condition has improved with the use of her spinal cord stimulator device. Patient continues to struggle with anxiety, depression, insomnia, and PATTIE, now on CPAP. Continuecurrent management and any additional workup, referrals, and treatments as outlined in the following plan: 1. Follow-up on an as needed basis/ If patient continues to struggle with pain, then, we may proceed with diagnostic and therapeutic bilateral L5-S1 transforaminal epidural steroid injection. 2. Long-term rehabilitation efforts: a. Resume comprehensive physical therapy program b. Resume water therapy c. Follow-up at [facility] d. Follow-up with Dr. Diogenes Neville for cognitive behavioral therapy, biofeedback, and CPAP compliance e. Follow-up with Dr. Lozano for her sleep apnea f. Follow-up with Dr. Burks for her unrelenting anxiety, depression and insomnia g. The patient does not have a history [...] day as needed for severe breakthrough pain. 4. Screening and compliance with controlled substances: Patient has completed a SOAPP questionnaireand ORT questionnaires (revealing low risk). Abrahan reports have been reviewed at each visit, and at least every three months and appropriate. Random urine drug screenings have been obtained and appropriate. Patient has signed a consent for treatment with controlled substances after reviewing the document and verbalizing full understanding of the risks, benefits, alternatives, and consequences ofcompliance and adherence with treatment and comprehensive plan [...] Future Appointments Date Time Provider Department Center 09/11/2016 11:30 AM MD LILIANA Spaulding [facility] None 10/18/2016 1:30 PM MD LILIANA Huerta [facility] None 12/05/2016 1:15 PM MD LILIANA Barillas [facility] None Bebeto Adams MD ? documented in this encounter Plan of Treatment Upcoming Encounters Date Type Department Care Team (Late st Contact Info) Description 03/13/2024 2:45 PM EST Office Visit [facility] CARDIOLOGY [address] [place] [address] [place] [address] Pj Ace MD [address] [facility] [address] [place] [address] documented as of this encounter Procedures Procedure Name Priority Date/Time Associated Diagnosis Comments SCANNED - TELEMETRY 08/17/2016 documented in this encounter Results * SCANNED - TELEMETRY (08/17/2016) Anatomical Region Laterality Modality Other us Bebeto [...] headaches Moderate obesity Obstructive sleep apnea, adult Benign essential hypertension Essential hypertension, benign Diabetes mellitus type 2 in obese Type II or unspecified type diabetes mellitus without mention of complication, not stated as uncontrolled Insomnia, unspecified type Generalized anxiety disorder Physical deconditioning Muscular wasting and disuse atrophy, not elsewhere classified documented in this encounter Care Teams Senior Clinical Sas Programmer Relationship Specialty Start Date End Date Deepak Cortez MD PCP - General 12/31/14 12/12/16 documented as of this encounter
--- OUTSIDE RECORDS SUMMARY | 2024-02-20 09:15 | XMS_ITS | Encounter Summary ---
[facility] Address [address] [place] [id number] Care Team Providers Care Labor Trainer Name Role Phone Mari Cortez MD Primary Care Provider Unav ailable Reason for Visit * Reason Comments skin tag removal skin tags around nec k and on arms requests med change from invokana to ano ther medication due to costs with insurance Encounter Details Date Type Department Care Team (Late st Contact Info) Description 09/11/2016 11:30 AM EDT Office Visit [facility] INTERNAL MEDICINE [address] [place] [phone] Mari Cortez MD Type 2 diabetes mellitus without complication, without long-term current use of insulin (Primary Dx); Skin tags, multiple acquired Social History Tobacco Use Types Packs/Day Years [...] Sign Reading Time Taken Comments Blood Pressure 154/72 09/11/2016 11:10 AM EDT Pulse 74 09/11/2016 11:10 AM EDT Temperature - - Respiratory Rate - - Oxygen Saturation 97% 09/11/2016 11:10 AM EDT Inhaled Oxygen Concentration - - Weight 84.8 kg (187 lb) 09/11/2016 11:10 AM EDT Height 157.5 cm (5' 2 ) 09/11/2016 11:10 AM EDT Body Mass Index 34.2 09/11/2016 11:10 AM EDT documented in this encounter Progress Notes * Mari Cortez MD - 09/11/2016 11:30 AM EDTAssociated Order(s): SKIN TAG REMOVAL Post-Procedure Diagnose(s): Skin tags, multiple acquired Dolly Gonzalez is a 60 y.o. female. skin tag removal (skin tags around neck and on arms) and requests med change (from invokana to another medication due to costs with insurance) HPI Comments: She is here for skin tags on her neck which have been aggravating her necklace. They get caught and are uncomfortable. She has some under her arms as well. She cannot afford invokanna and would like to tray something less expensive. The following portions of the patient's history were reviewed and updated as appropriate: allergies, current medications, past family history, past medical history, past surgical history and problem list. Review of Systems Objective Vitals: 09/11/16 1110 BP: 154/72 Pulse: 74 SpO2: 97% Physical Exam Constitutional: She is oriented to person, place, and time. She appears well- developed and well-nourished. HENT: Head: Normocephalic and atraumatic. Eyes: Conjunctivae and EOM are normal. Pupils are equal, round, and reactive to light. Cardiovascular: Normal rate, regular rhythm, normal heart sounds and intact distal pulses. Pulmonary/Chest: Effort normal and breath sounds normal. Neurological: She is alert and oriented to person, place, and time. She has normal reflexes. Skin: Skin is warm. Skin Tag Removal Date/Time: 10/04/2016 10:43 PM Performed by: MARI CORTEZ Authorized by: MARI CORTEZ Consent: Verbal consent obtained. Risks and benefits: risks, benefits and alternatives were discussed Consent given by: patient Patient understanding: patient states understanding of the procedure being performed Patient consent: the patient's understanding of the procedure matches consent given Patient identity confirmed: verbally with patient Preparation: Patient was prepped and draped in the usual sterile fashion. Local anesthesia used: no Anesthesia: Local anesthesia used: no Sedation: Patient sedated: no Patient tolerance: Patient tolerated the procedure well with no immediate complications 5 lesions remove s Assessment/Plan Problems Addressed this Visit None Visit Diagnoses Type 2 diabetes mellitus without complication, without long-term current use of insulin - Primary Results for orders placed or performed in [...] SYSTEM CARDIOLOGY [address] [place] [address] [place] [address] Pj Ace MD [address] [facility] [address] [place] [address] documented as of this encounter Procedures Procedure Name Priority Date/Time Associated Diagnosis Comments SKIN TAG REMOVAL Routine 10/04/2016 10:4 9 PM EDT Skin tags, multiple acquired documented in this encounter Results * SKIN TAG REMOVAL (10/04/2016 10:49 PM EDT) Narrative Mari Cortez MD - 10/04/2016 10:49 PM EDT Mari Cortez MD ? 10/04/2016 10:49 PM Skin Tag Removal Date/Time: 10/04/2016 10:43 PM Performed by: MARI CORTEZ Authorized by: MARI CORTEZ Consent: Verbal consent obtained. Risks and benefits: risks, benefits and alternatives were discussed Consent given by: patient Patient understanding: patient states understanding of the procedure being performed Patient consent: the patient's understanding of the procedure matches consent given Patient identity confirmed: verbally with patient Preparation: Patient was prepped and draped in the usual sterile fashion. Local anesthesia used: no Anesthesia: Local anesthesia used: no Sedation: Patient sedated: no Patient tolerance: Patient tolerated the procedure well with no immediate complications Mari Cortez MD DERM PROCEDURE ORDERABLES F inal Result documented in this encounter Visit Diagnoses Diagnosis Type 2 diabetes mellitus without complication, without long-term current use of insulin- Primary Skin tags, multiple acquired documented in this encounter Care Teams Labor Trainer Relationship Specialty Start Date End Date Mari Cortez MD PCP - General 12/31/14 12/12/16 documented as of this encounter
--- OUTSIDE RECORDS SUMMARY | 2024-02-20 09:15 | XMS_ITS | Encounter Summary ---
[facility] Organization [facility] Address [address] [place] [address] Care Team Providers Care Clinical Product Manager Name Role Phone Madelaine Norman APRN Primary Care Provider [phone] Reason for Visit * Reason Comments Back Pain Follow-up Encounter Details Date Type Department Care Team (Late st Contact Info) Description 05/07/2017 12:45 PM EST Office Visit [facility] PAIN [facility]NAGEMENT [address] [phone] Bebeto Adams MD [address] [address] Meningeal adhesions/lumbar arachnoiditis; Postlaminectomy syndrome of lumbar region; Herniated lumbar intervertebral disc; Lumbar facet arthropathy/lumbar spondylosis without myelopathy; Sacroiliac joint dysfunction of left side; Myofascial pain syndrome; History of migraine headaches; Diabetes mellitus type 2 in obese; Moderate obesity; Obesity with sleep apnea; Insomnia, unspecified type; Anxiety and depression; Generalized anxiety disorder; Physical deconditioning Social History [...] Sign Reading Time Taken Comments Blood Pressure 185/103 05/07/2017 12:34 PM EST Pulse 96 05/07/2017 12:34 PM EST Temperature 36.6 ??C (97.8 ??F) 05/07/2017 12:[address] Respiratory Rate 18 05/07/2017 12:34 PM EST Oxygen Saturation 96% 05/07/2017 12:34 PM EST Inhaled Oxygen Concentration - - Weight 85.3 kg (188 lb) 05/07/2017 12:34 PM EST Height 157.5 cm (5' 2 ) 05/07/2017 12:34 PM EST Body Mass Index 34.39 05/07/2017 12:34 PM EST documented in this encounter Progress Notes * Bebeto Adams MD - 05/07/2017 12:45 PM EST Chief Complain: I have pain in my lower back, buttocks and into my left leg down to my left foot. ? Brief History: Ms. Gonzalez returns to the clinic for evaluation of unrelenting chronic lower back and left lower extremity pain and possible SCS reprogramming. Patient was last seen on 03/22/2017 withsimilar complaints. Today, she appears more depressed. She reports that she experienced relief after her last reprogramming. An X-ray of her thoracic spine was obtained on her last visit and we will use it today to facilitate reprogramming. More recently, she reports that changing her programs did not control her pain. She has been working with Yoanna Hernandez for coping skills. She feels like some of her medications for her depression need to be adjusted. Spinal cord stimulator device system: Patient underwent implantation of her spinal cord stimulator device system on December 31, [address] Damien Berg. [place] [employer] lead with the top electrodes projecting at the level of the superior endplate of the T7 vertebral body. IPG: Prot??g?? Pain level ranges from 1/10 to 10/10 with the use of her spinal cord stimulator with certain activities and during the night. Pain level: 5-6/10 (before reprogramming) down to 2/10 (after reprogramming) Pain location: Left lower back, buttocks, and [...] Tylenol without side effects. I have reviewed [facility] #[id number] consistent with medication reconciliation. Comorbid factors: Depression [...] Obesity: Patient has not followed up with [facility] despite medical advice. Diabetes: NIDDM, not controlled. No meds. No compliance. Review of New Diagnostic Studies: XR SPINE, THORACIC, 1 VW-03/22/2017: No evidence for acute fracture, subluxation or dislocation of the thoracic spine with spinal cord stimulator terminating at the T7 superior endplate level. ? Diagnostic Studies: CT SCAN OF THE THORACIC [...] systems reviewed and are negative. BP (!) 185/103 (BP Location: Left arm, Patient Position: Sitting) Pulse 96 Temp 97.8 ??F (36.6 ??C) (Temporal Artery ) Resp 18 Ht 157.5 cm (62 ) Wt 85.3 kg (188 lb) LMP (LMP Unknown) SpO2 96% BMI 34.39 kg/m2 Physical Exam Neurologic Exam [...] her stimulator device for a total of 196 hours since last reprogramming, and 12,617 lifetime hours (24 hours per day). Analysis of impedance reveals normal impedance for all contacts. The spinal cord stimulator device was reprogrammed under my supervision by adjusting electrode polarities, pulse width, pulse rate, amplitudes, BurstDR, and all eleven programs were adjusted, as follows; Program TEN (best program) Electrode polarities: 1+, [...] syndrome 7. History of migraine headaches 8. Diabetes mellitus type 2 in obese 9. Moderate obesity 10. Obesity with sleep apnea 11. Insomnia, unspecified type 12. Anxiety and depression 13. Generalized anxiety disorder 14. Physical deconditioning PLAN: Patient continues to struggle with her left lower extremity pain, which had been well controlled with her SCS device until recently. Patient continues to struggle with anxiety, depression, insomnia, PATTIE (no compliance with CPAP), and recurring left lower extremity pain. Therefore, I have proposed the following plan: 1. Patient will be scheduled for diagnostic and therapeutic left L4-L5 and left L5-S1 transforaminal epidural steroid injection. If she continues to struggle, then, I will refer her back to Dr. Berg for possible revision of her SCS lead (with movement of the lead towards the left side of the epidural space and moving the lead down to the level of the superior aspect of the T8 vertebral body. 2. Diagnostics: Random UDS 3. Long-term rehabilitation efforts: a. Resume comprehensive physical therapy program b. Resume water therapy c. Follow-up at [facility] d. Follow-up with Dr. Diogenes Neville for cognitive behavioral therapy, biofeedback, and CPAP compliance e. Follow-up with Dr. Burks for unrelenting anxiety, depression and insomnia f. The [...] to proceed accordingly. I spent 30 minutes [id number] with the patient, of which 20 minutes [...] New Medications Ordered This Visit Medications ??? traMADol (ULTRAM) 50 MG tablet Sig: A tablet PO TID PRN severe breakthrough pain Dispense: 90 tablet Refill: 0 Future Appointments Date Time Provider Department Center 05/09/2017 11:00 AM VASILE LopezE [facility] None Bebeto Adams MD ? documented in this encounter Plan of Treatment Upcoming Encounters Date Type Department Care Team (Late st Contact Info) Description 03/13/2024 2:45 PM EST Office Visit [facility] CARDIOLOGY [address] [place] [address] Pj Ace MD [address] [facility] [address] [place], [place] [id number] documented as of this encounter Visit Diagnoses Diagnosis Meningeal adhesions/lumbar arachnoiditis Postlaminectomy syndrome of lumbar region Postlaminectomy syndrome, lumbar region Herniated lumbar intervertebral disc Displacement of lumbar intervertebral disc without myelopathy Lumbar facet arthropathy/lumbar spondylosis without myelopathy Spondylosis of unspecified site without mention of myelopathy Sacroiliac joint dysfunction of left side Myofascial pain syndrome Unspecified myalgia and myositis History of migraine headaches Diabetes mellitus type 2 in obese Type II or unspecified type diabetes mellitus without mention of complication, not stated as uncontrolled Moderate obesity Obesity with sleep apnea Insomnia, unspecified type Anxiety and depression Generalized anxiety disorder Physical deconditioning Muscular wasting and disuse atrophy, not elsewhere classified documented in this encounter Care Teams Clinical Product Manager Relationship Specialty Start Date End Date Madelaine Norman APRN [address] [facility] [address] [place] [address] PCP - General Internal Medicine 12/13/16 09/07/17 documented as of this encounter
--- OUTSIDE RECORDS SUMMARY | 2024-02-20 09:15 | XMS_ITS | Encounter Summary ---
[facility] Address [address] [place] [address] Care Team Providers Care Laminated Plastics Assembler And Gluer Name Role Phone Madelaine Norman COLLECTOR OF PORT Primary Care Provider [phone] Reason for Visit * Reason Onset Date Comments Med Dose Change 02/05/2017 Encounter Details Date Type Department Care Team (Late st Contact Info) Description 02/05/2017 Refill [facility] INTERNAL MEDICINE [address] [place] [address] Madelaine Norman, COLLECTOR OF PORT [address] [place] [id number] Social History Tobacco Use Types Packs/Day Years [...] of this encounter Progress Notes * Nelly Lennon MA - 02/07/2017 2:54 PM ESTAddended by: NELLY LENNON on: 02/07/2017 02:54 PM Modules accepted: Orders documented in this encounter Miscellaneous Notes * Telephone Encounter - Nelly Lennon MA - 02/07/2017 2:54 PM EST Pt advised and script sent as requested. * Telephone Encounter - Madelaine Norman APRN - 02/07/2017 7:57 AM EST januvia 100 mg one po qd #90, 3 rf * Telephone Encounter - Pita Arthur LPN - 02/06/2017 1:21 PM EST PT SAYS CURRENTLY TAKING SAMPLES OF INVOKANA BUT INSURANCE WILL NOT COVER. BEFORE WAS ON JANUVIA 50MG. REQUESTING JANUVIA 100MG DAILY. * Telephone Encounter - Madelaine Norman APRN - 02/05/2017 10:59 AM EST I'm sorry, did not find anything in my notes, please call and ask pt * Telephone Encounter - Pita Arthur LPN - 02/05/2017 9:29 AM EST RECEIVED REFILL REQUEST FOR JANUVIA 100MG TABS TAKE 1 DAILY ORAL FROM [facility]. MED LIST NOTED TO HAVE JANUVIA 50 MG TAKE 1 DAILY. PLEASE ADVISE CORRECT DOSE. documented in this encounter Plan of Treatment Upcoming Encounters Date Type Department Care Team (Late st Contact Info) Description 03/13/2024 2:45 PM EST Office Visit [facility] CARDIOLOGY [address] [facility] [place] [address] Pj Ace MD [address] [facility] [address] [facility] [address] [place] [address] documented as of this encounter Visit Diagnoses Not on filedocumented in this encounter Care Teams Laminated Plastics Assembler And Gluer Relationship Specialty Start Date End Date Madelaine Norman, COLLECTOR OF PORT [address] [place] [address] PCP - General Internal Medicine 12/13/16 09/07/17 documented as of this encounter
--- OUTSIDE RECORDS SUMMARY | 2024-02-20 09:15 | XMS_ITS | Encounter Summary ---
[facility] [address] [place] [id number] Care Team Providers Care Fiscal Officer Name Role Phone Madelaine Norman APRN Primary Care Provider Encounter Details Date Type Department Care Team (Late st Contact Info) Description 03/21/2017 Telephone [facility] PAIN MANAGEMENT [address] [address] Bri Monsalve Social History Tobacco Use [...] * Telephone Encounter - Bri Monsalve - 03/21/2017 11:48 AM EST Pt called to make an appt . Current pain is across her lower back down into her left buttocks area going down the left leg, into her foot. Making her first 2 toes goes completely numb. Pain level- 6 She is only getting relief when laying on her right side She was last seen in the office 11/16 documented in this encounter Plan of Treatment Upcoming Encounters Date Type Department Care Team (Late st Contact Info) Description 03/13/2024 2:45 PM EST Office Visit [facility] CARDIOLOGY [address] [place] [address] [phone] Pj Ace MD [address] [address] [place] [address] documented as of this encounter Visit Diagnoses Not on filedocumented in this encounter Care Teams Fiscal Officer Relationship Specialty Start Date End Date Madelaine Norman, HVAC CONTROLS TECHNICIAN [address] [facility] [address] [place] [address] PCP - General Internal Medicine 12/13/16 09/07/17 documented as of this encounter
--- OUTSIDE RECORDS SUMMARY | 2024-02-20 09:15 | XMS_ITS | Encounter Summary ---
[facility] Organization [facility] Address [address] [place] [address] Care Team Providers Care Hospice Liaison Name Role Phone Deepak Cortez MD Primary Care Provider Unav ailable Reason for Visit * Reason Onset Date Comments Clarification of Farxiga instructions 11/22/2016 Farxiga sent to wrong pharmacy 11/22/2016 Encounter Details Date Type Department Care Team ([facility] st Contact Info) Description 11/22/2016 Telephone [facility] INTERNAL MEDICINE [address] [place] [address] Madelaine Norman, STUFFING MACHINE OPERATOR [address] [place] [address] Clarification of Farxiga instructions; Farxiga sent to wrong pharmacy Social History Tobacco Use Types Packs/Day Years [...] Telephone Encounter - Ev Estrada MA - 11/22/2016 11:49 AM EDT Was supposed to go to [facility] in [place]. Escribed to [facility], canceled at [facility]. * Telephone Encounter - Naya Dang - 11/22/2016 11:31 AM EDT PHARMACY IS NEEDING CLARIFICATION ON THE DOSAGE AND DIRECTIONS OF PATIENTS FARXIGA MEDICATION. YOU CAN REACH THEM BACK AT [phone]. REFERENCE NUMBER [id number] documented in this encounter Plan of Treatment Upcoming Encounters Date Type Department Care Team (Late st Contact Info) Description 03/13/2024 2:45 PM EST Office Visit [facility] CARDIOLOGY [address] [place] [address] Pj Ace MD [address] [address] documented as of this encounter Visit Diagnoses Not on filedocumented in this encounter Care Teams Hospice Liaison Relationship Specialty Start Date End Date Deepak Cortez MD PCP - General 12/31/14 12/12/16 documented as of this encounter
--- OUTSIDE RECORDS SUMMARY | 2024-02-20 09:15 | XMS_ITS | Encounter Summary ---
[facility] Address [address] [place] [id number] Care Team Providers Care Oil Field Tester Name Role Phone Deepak Cortez MD Primary Care Provider Unav ailable Reason for Visit * Reason Comments Follow-up Encounter Details Date Type Department Care Team (Late st Contact Info) Description 10/18/2016 1:30 PM EDT Office Visit [facility] SLEEP MEDICINE [address] [facility] [address] [place] [address] Denis Lozano MD [address] [place] [address] 1, [facility] [address] [place] [phone] Obstructive sleep apnea, adult (Primary Dx) Social [...] Sign Reading Time Taken Comments Blood Pressure 146/70 10/18/2016 1:47 PM EDT Pulse 105 10/18/2016 1:47 PM EDT Temperature - - Respiratory Rate - - Oxygen Saturation 93% 10/18/2016 1:47 PM EDT Inhaled Oxygen Concentration - - Weight 84.8 kg (187 lb) 10/18/2016 1:47 PM EDT Height 157.5 cm (5' 2 ) 10/18/2016 1:47 PM EDT Body Mass Index 34.2 10/18/2016 1:47 PM EDT documented in this encounter Patient Instructions * Patient Instructions* Denis Lozano MD - 10/18/2016 1:30 PM EDT Images from the original [...] Eat a healthy, well-balanced diet. ?? Take [id number] and prescription medicines only as told by [...] care provider. Document Released: 03/09/2003 Document Revised: 07/10/2016 Document Reviewed: 12/27/2015 [employer] Patient Education ??2017 [employer]. documented in this encounter Progress Notes * Denis Lozano MD - 10/18/2016 1:30 PM EDT Subjective Gertrudis Gonzalez is a 60 y.o. female is here today for follow-up. She is followed here with obstructive sleep apnea. Her primary care physician is Dr. Cortez. She is also seen by Dr. Adams. History of Present Illness Patient was last seen July 27. She has mild obstructive sleep apnea with a AHI of 14.7. She has history of hypertension chronic pain and obesity. She's been trying to use CPAP. She's had problems using it. She complains occasionally wakens sensation of smothering . She is had the nasal pillows and is had issues with leaking. She is also complaining have her pain bothering her. She sometimes hasher nose stopped up. SHe is interested in trying to continue with the CPAP. She was referred for follow-up because her insurance company was going to stop paying for her CPAP machine because of her limited usage Past Medical History: Diagnosis Date ??? Anxiety [...] ??? SPINAL CORD STIMULATOR IMPLANT 2015 replacement Current Outpatient Prescriptions: ??? acetaminophen (TYLENOL) 500 MG tablet, Take 1 tablet by mouth. Every 4 to 6 hours as needed, Disp: , Rfl: ??? baclofen (LIORESAL) 10 MG tablet, TAKE INSTRUCTED BY YOUR PRESCRIBER, Disp: 270 tablet, Rfl:1 ??? chlorthalidone (HYGROTON) 25 MG tablet, Take 1 tablet by mouth Daily. 1 po qd-APPT NEEDED FOR FURTHER REFILLS, THANK YOU, Disp: 90 tablet, Rfl: 0 ??? desvenlafaxine (PRISTIQ) 50 MG 24 hr [...] 42.5 g, Rfl: 5 ??? hydrALAZINE (APRESOLINE) 10 MG tablet, Take 1 tablet by mouth 3 (Three) Times a Day., Disp: 90 tablet, Rfl: 1 ??? lidocaine (LIDODERM) 5 %, Apply 1 patch topically. To the affected area and leave in place for 12 hours, then remove and leave off for 12 hours, Disp: , Rfl: ??? Linaclotide 145 MCG capsule, Take 145 mcg by mouth Daily., Disp: 90 capsule, Rfl: 1 ??? Liniments (SALONPAS) pads, Apply topically. prn, Disp: , Rfl: ??? QUEtiapine (SEROquel) 50 MG tablet, , Disp: , Rfl: ??? SITagliptin (JANUVIA) 100 MG tablet, Take 1 tablet by mouth Daily., Disp: 90 tablet, Rfl: 1 ??? topiramate (TOPAMAX) 50 MG tablet, TAKE ONE TABLET BY MOUTH TWICE DAILY, Disp: 180 tablet, Rfl:0 ??? traMADol (ULTRAM) 50 MG tablet, TAKE ONE TABLET BY MOUTH TWICE DAILY TO THREE TIMES DAILY NEEDED FOR SEVERE BREAKTHROUGH PAIN, Disp: 90 tablet, Rfl: 0 ??? traZODone (DESYREL) 50 MG tablet, TAKE 1 TO 2 TABLETS AT BEDTIME NEEDED, Disp: 180 tablet, Rfl: 2 Allergies Allergen Reactions ??? Iain Inhibitors Cough ??? Amlodipine ??? Beta Adrenergic Blockers ??? Cyclobenzaprine ??? Hydrochlorothiazide ??? Hyzaar [Losartan Potassium-Hctz] ??? Latex ??? Losartan ??? Metformin ??? Penicillins ??? Pioglitazone ??? Spironolactone The following portions of the patient's history were reviewed and updated as appropriate: allergies, current medications and problem list. Review of Systems Constitutional: Negative. HENT: Positive for congestion, postnasal drip and sinus pressure. Eyes: Negative. Respiratory: Negative. Cardiovascular: Positive for palpitations. Gastrointestinal: Negative. Endocrine: Positive for polydipsia and polyuria. Genitourinary: Negative. Musculoskeletal: Positive for arthralgias, back pain and joint swelling. Skin: Negative. Allergic/Immunologic: Positive for environmental allergies. Neurological: Positive for headaches. Hematological: Negative. Psychiatric/Behavioral: Positive for dysphoric mood. The patient is nervous/anxious. Hiland scores 03/25 Objective BP 146/70 Pulse 105 Ht 62 (157.5 cm) Wt 187 lb (84.8 kg) SpO2 93% BMI 34.2 kg/m2 Physical Exam Constitutional: She is oriented to person, place, and time. She appears well- developed and well-nourished. She is obese. HENT: Head: Normocephalic and atraumatic. She hasn't nasal airway narrowing and Mallampati class II anatomy Eyes: EOM are normal. Pupils are [...] mood and affect. Her behavior is normal. Download from her machine shows for the past 79 days she is only used it 46% the days. She is averaging 4 hours 13 minutes per day. Her 90% pressure is 9.7. Her AHI is 2.7 which is normal. Assessment/Plan Gertrudis was seen today for follow-up. Diagnoses and all orders for this visit: Obstructive sleep apnea, adult - CPAP Therapy Patient has not been able to use machine very frequently. She isn't she didn't having continuing. We will write new orders for supplies. We will continue on her current pressure settings. I think shemay well benefit her she could try a fullface mask instead of just the nasal pillows. She is encouraged to lose weight. She is encouraged to avoid alcohol and sedatives close to bedtime. She is encouraged practice lateral position sleep. We will plan to see her back in 3 months. She is to contact us earlier symptoms worsen. Denis Lozano MD [facility] Sleep Medicine Pulmonary and Critical Care Medicine 10/18/16 2:01 PM documented in this encounter Plan of Treatment Upcoming Encounters Date Type Department Care Team (Late st Contact Info) Description 03/13/2024 2:45 PM EST Office Visit [facility] CARDIOLOGY [address] [place] [address] Pj Ace MD [address] [facility] [address] [facility] [address] [place] [address] documented as of this encounter Visit Diagnoses Diagnosis Obstructive sleep apnea, adult- Primary documented in this encounter Care Teams Oil Field Tester Relationship Specialty Start Date End Date Deepak Cortez MD PCP - General 12/31/14 12/12/16 documented as of this encounter
--- OUTSIDE RECORDS SUMMARY | 2024-02-20 09:15 | XMS_ITS | Encounter Summary ---
[facility] [address] [place] [address] Care Team Providers Care Ancillary Specialist Name Role Phone Deepak Cortez MD Primary Care Provider Unav ailable Reason for Visit * Reason Onset Date Comments Change Januvia to Farxiga due to cost 11/21/2016 Encounter Details Date Type Department Care Team (Late st Contact Info) Description 11/21/2016 Telephone [facility] INTERNAL MEDICINE [address] [place] [address] Madelaine Norman, WEB MARKETING COORDINATOR [address] [place] [address] Change Januvia to Farxiga due to cost Social History Tobacco Use Types Packs/Day Years [...] Encounter - Ev Estrada MA - 11/22/2016 11:47 AM EDT Patient notified. * Telephone Encounter - Madelaine Norman APRN - 11/22/2016 9:22 AM EDT have ordered new drug, farxiga * Telephone Encounter - Usha Becerra MA - 11/21/2016 10:51 AM EDT Please advise? * Telephone Encounter - Ese Pride - 11/21/2016 10:44 AM EDT PATIENT STATES HER JANUVIA RX WILL COST MORE THAN $200 PER MONTH AND SHE WOULD LIKE TO KNOW IF MADELAINE CAN ORDER SOMETHING THAT HER INSURANCE WILL PAY FOR. SHE STATES SHE THINKS SHE HAS USED [facility] BEFORE. PLEASE CALL IN NEW RX TO [facility] IN [place] documented in this encounter Plan of Treatment Upcoming Encounters Date Type Department Care Team (Late st Contact Info) Description 03/13/2024 2:45 PM EST Office Visit [facility] CARDIOLOGY [address] [place] [address] [place] [address] Pj Ace MD [address] [facility] [address] [facility] [address] [place] [address] documented as of this encounter Visit Diagnoses Not on filedocumented in this encounter Care Teams Ancillary Specialist Relationship Specialty Start Date End Date Deepak Cortez MD PCP - General 12/31/14 12/12/16 documented as of this encounter
--- OUTSIDE RECORDS SUMMARY | 2024-02-20 09:16 | XMS_ITS | Encounter Summary ---
[facility] Address [address] [place] [address] Care Team Providers Care Apparatus Cleaner Name Role Phone Deepak Cortez MD Primary Care Provider Unav ailable Reason for Visit * Reason Comments Med Refill Encounter Details Date Type Department Care Team (Late st Contact Info) Description 01/20/2016 Refill [facility] PAIN MANAGEMENT [address] [facility] [address] [place] [address] Bebeto Adams MD [address] [facility] [address] [place] [address] Social History Tobacco Use Types Packs/Day Years [...] CENTER CARDIOLOGY [address] [place] [address] [place] [address] Pj Ace MD [address] [facility] [address] [place] [address] documented as of this encounter Visit Diagnoses Not on filedocumented in this encounter Care Teams Apparatus Cleaner Relationship Specialty Start Date End Date Deepak Cortez MD PCP - General 12/31/14 12/12/16 documented as of this encounter
--- OUTSIDE RECORDS SUMMARY | 2024-02-20 09:16 | XMS_ITS | Encounter Summary ---
[facility] Address [address] [place] [address] Care Team Providers Care Detonator Maker Name Role Phone Deepak Cortez MD Primary Care Provider Unav ailable Reason for Visit * Reason Comments Med Refill Encounter Details Date Type Department Care Team (Late st Contact Info) Description 06/23/2016 Refill [facility] INTERNAL MEDICINE [address] [place] [address] Deepak Cortez MD Social History [...] Office Visit [facility] CARDIOLOGY [address] [place] [address] [address] [place] [address] Pj Ace MD [address] [facility] [address] [place], [place] [id number] documented as of this encounter Visit Diagnoses Not on filedocumented in this encounter Care Teams Detonator Maker Relationship Specialty Start Date End Date Deepak Cortez MD PCP - General 12/31/14 12/12/16 documented as of this encounter
--- OUTSIDE RECORDS SUMMARY | 2024-02-20 09:16 | XMS_ITS | Encounter Summary ---
Author Organization [facility] Address [address] [place] [address] Care Team Providers Care Commercial Center Manager Name Role Phone Deepak Cortez MD Primary Care Provider Unav ailable Reason for Visit * Reason Comments Follow-up [facility] Back Pain Encounter Details Date Type Department Care Team (Late st Contact Info) Description 04/25/2016 1:15 PM EST Office Visit [facility] PAIN MANAGEMENT [address] [phone] Bebeto Adams MD [address] [address] Postlaminectomy syndrome of lumbar region; Meningeal adhesions/lumbar arachnoiditis; Lumbar facet arthropathy/lumbar spondylosis without myelopathy; Sacroiliac joint dysfunction of left side; Myofascial pain syndrome; History of migraine headaches; Obesity with sleep apnea; Moderate obesity; Insomnia, unspecified type; Generalized anxiety disorder; Other depression; Chronic pain syndrome; Physical deconditioning Social History Tobacco Use Types [...] Sign Reading Time Taken Comments Blood Pressure 144/94 04/25/2016 1:20 PM EST Pulse 102 04/25/2016 1:20 PM EST Temperature 35.9 ??C (96.7 ??F) 04/25/2016 1:20 PM ES T Respiratory Rate 18 04/25/2016 1:20 PM EST Oxygen Saturation 96% 04/25/2016 1:20 PM EST Inhaled Oxygen Concentration - - Weight 86.2 kg (190 lb) 04/25/2016 1:20 PM EST Height 157.5 cm (5' 2 ) 04/25/2016 1:20 PM EST Body Mass Index 34.75 04/25/2016 1:20 PM EST documented in this encounter Progress Notes * Bebeto Adams MD - 04/25/2016 1:15 PM EST Chief Complain: I have been doing better with the stimulator. ? Brief History: Ms. Gonzalez returns to the clinic for evaluation of left buttocks and left lower extremity pain down to the foot, and possible reprogramming of her [employer] spinal cord stimulator device. Patient reports significant improvement of her chronic pain after her last reprogramming. A few weeks later, she reports that she felt that the pain was overriding the stimulation. Pain level: 4/10 Average pain level last week: 4/10 (significantly decreased in comparison to last visit in March) Pain level ranges from 1/10 to 5/10 (with the spinal cord stimulator on) Quality of pain: Throbbing and burning in the lower extremities, and it just hurts across my lowerback Radiation of pain: Pain radiates from her lower back down to the buttocks, the posterior aspect of her thighs, lateral aspect of the left leg and into the left foot, the 2nd and 3rd toes. The right sided pain is intermittent and less frequent and radiates up to the heel. Comorbid factors: Depression seems to be getting better. She continues under the care of Dr. Burks. Patient continues on Pristiq, which was increased before her last visit, and now Latuda . She continues CBT with Yoanna Osman for counseling. Deconditioning: She has resumed water therapy. Patient is not currently participating in physical therapy due to insurance issues. Sleep disturbance: Patient has decided to move forward with a sleep study. Obesity: She has been released by [facility]. Current analgesics: She uses ice and heat in the areas of her chronic pain. In terms of analgesics,she uses SalonPas, and baclofen, Tramadol, Zipsor, Lidocaine Patches and Tylenol without side effects. GENE #[id number], is consistent with medication reconciliation. Review of new diagnostic studies UDS on 03/07/2016, appropriate ? Diagnostic Studies: X-rays of the sacroiliac joints from 07/20/2015 [...] medications, and allergies ?? Review of Systems Constitutional: Positive for fatigue. Musculoskeletal: Positive for back pain. All other systems reviewed and are negative. Visit Vitals ??? BP 144/94 (BP Location: Left arm, Patient Position: Sitting) ??? Pulse 102 ??? Temp 96.7 ??F (35.9 ??C) (Temporal Artery ) ??? Resp 18 ??? Ht 62 (157.5 cm) ??? Wt 190 lb (86.2 kg) ??? SpO2 96% ??? BMI 34.75 kg/m2 Physical Exam Neurologic Exam Constitutional General appearance: No acute distress, well appearing and well nourished. Morbidly obese??and??well hydrated. Head and Face Normal. Palpation of the face and sinuses: No sinus tenderness. Eyes Conjunctiva and lids: No swelling, erythema or discharge. Pupils and irises: Equal, round, reactive to light. Pulmonary Respiratory effort: No increased work of breathing or signs of respiratory distress. Auscultation of lungs: Clear to auscultation. Cardiovascular Auscultation of heart: Normal rate and rhythm, normal S1 and S2, no murmurs. Peripheral vascular exam: Normal. Examination of extremities for edema and/or varicosities: Normal. Abdomen Non-tender, no masses. Musculoskeletal Gait and station: Normal. Digits and nails: Normal without clubbing or cyanosis.??The range of motion of the lumbar spine is improved. Lumbar facet joint loading maneuvers are negative. Danny and Gaenslen's tests are negative. Palpation of the left gluteal bursa does not reproducepain at this time. The range of motion of the hip joints is full and without pain. Muscle tone is normal. Left piriformis maneuvers are negative at this time. Muscle strength/tone: Normal. Skin Skin and subcutaneous tissue: Normal without rashes or lesions.??Her surgical wounds are well-healed without redness, drainage, or fluid accumulation. There is complete epithelization of her surgical wounds. Neurologic Cranial nerves: Cranial nerves II-XII intact. [...] her stimulator device for a total of 1105 hours since last reprogramming, and 8792 lifetime hours (23 hours per day). Analysis of impedance reveals normal impedance for all contacts. Spinal cord stimulator device was reprogrammed under my supervision by adjusting electrode polarities, pulse width, pulse rate, amplitudes, BurstDR, by creating one program, as follows; Program ONE Electrode polarities: 1+, 2-, 3+, 4+, 5-, 6- Amplitude: 1 to 1.5 mA Pulse width: 1000 mcs Pulse Rate: 40 Hz IntraBurst rate: 500 Hz Micro-dosing ratio: 5:25 Time spent reprogrammin minutes. A copy of the telemetry report will be scanned in the patient's chart ?? ASSESSMENT: 1. Postlaminectomy syndrome of lumbar region 2. Meningeal adhesions/lumbar arachnoiditis 3. Lumbar facet arthropathy/lumbar spondylosis without myelopathy 4. Sacroiliac joint dysfunction of left side 5. Myofascial pain syndrome 6. History of migraine headaches 7. Obesity with sleep apnea 8. Moderate obesity 9. Insomnia, unspecified type 10. Generalized anxiety disorder 11. Other depression 12. Chronic pain syndrome 13. Physical deconditioning PLAN: Patient's chronic pain condition is improved. We will continue current management and any additional workup, referrals, and treatments as outlined in the following plan: 1. Follow-up in three weeks to assess response to new spinal cord stimulator program. If patient continues to struggle with pain, then, we will proceed with diagnostic/therapeutic right L4-L5 and left L5-S1 transforaminal epidural steroid injection. We may repeat another epidural depending on patient???s outcome. 2. Long-term rehabilitation efforts: a. Resume comprehensive physical therapy program b. Resume water therapy c. Follow-up at [facility] d. Follow-up with Dr. Diogenes Neville for cognitive behavioral therapy and biofeedback e. Follow-up with Dr. Lozano for her [...] mg each bedtime for insomnia c. Continue Zipsor 25 mg 4 times a day when necessary for mild to moderate acute breakthrough pain.I have instructed the patient not to take any other NSAIDs d. Continue lidocaine patches e. Continue baclofen 10 mg 1/2 to 1 tablet 1-2 times a day as needed muscle spasms f. Continue Pristiq and Latuda as prescribed by Dr. Vitaliy mortensen. Tramadol 50 mg twice a day as needed for breakthrough pain. Patient has completed a SOAPP questionnaire and ORT questionnaire (revealing low risk). Gene reports have been reviewed and appropriate. 4. The patient has been instructed to [...] New Medications Ordered This Visit Medications ??? Lurasidone HCl (LATUDA) 20 MG tablet tablet Sig: Take 20 mg by mouth Daily. Future Appointments Date Time Provider Department Center 05/08/2016 9:45 AM Deepak Cortez MD [facility] None 05/08/2016 12:[address] [facility] Bebeto Adams MD ? documented in this encounter Plan of Treatment Upcoming Encounters Date Type Department Care Team (Late st Contact Info) Description 03/13/2024 2:45 PM EST Office Visit [facility] CARDIOLOGY [address] [place] [address] [place] [address] Pj Ace MD [address] [facility] [address] [place] [address] documented as of this encounter Procedures Procedure Name Priority Date/Time Associated Diagnosis Comments SCANNED - TELEMETRY 04/25/2016 documented in this encounter Results * SCANNED - TELEMETRY (04/25/2016) Anatomical Region Laterality Modality Other us Bebeto Adams MD ECG ORDERABLES Final Result documented in this encounter Visit Diagnoses Diagnosis Postlaminectomy syndrome of lumbar region Postlaminectomy syndrome, lumbar region Meningeal adhesions/lumbar arachnoiditis Lumbar facet arthropathy/lumbar spondylosis without myelopathy Spondylosis of unspecified site without mention of myelopathy Sacroiliac joint dysfunction of left side Myofascial pain syndrome Unspecified myalgia and myositis History of migraine headaches Obesity with sleep apnea Moderate obesity Insomnia, unspecified type Generalized anxiety disorder Other depression Chronic pain syndrome Physical deconditioning Muscular wasting and disuse atrophy, not elsewhere classified documented in this encounter Care Teams Commercial Center Manager Relationship Specialty Start Date End Date Deepak Cortez MD PCP - General 12/31/14 12/12/16 documented as of this encounter
--- OUTSIDE RECORDS SUMMARY | 2024-02-20 09:16 | XMS_ITS | Encounter Summary ---
[facility] Address [address] [place] [address] Care Team Providers Care [place] Coiling Machine Setter Name Role Phone Deepak Cortez MD Primary Care Provider Unav ailable Reason for Visit * Reason Comments Med Refill Encounter Details Date Type Department Care Team (Late st Contact Info) Description 10/19/2015 Refill [facility] PAIN MANAGEMENT [address] [facility] [address] [place] [phone] Bebeto Adams MD [address] [facility] [address] [place] [address] Social History Tobacco Use Types Packs/Day Years [...] Office Visit [facility] CARDI[facility] [address] [place] [address] [place] [address] Pj Ace MD [address] [facility] [address] [place] [address] documented as of this encounter Visit Diagnoses Not on filedocumented in this encounter Care Teams [place] Coiling Machine Setter Relationship Specialty Start Date End Date Deepak Cortez MD PCP - General 12/31/14 12/12/16 documented as of this encounter
--- OUTSIDE RECORDS SUMMARY | 2024-02-20 09:16 | XMS_ITS | Encounter Summary ---
[facility] Address [address] [place] [address] Care Team Providers Care Industrial Engineering Technologist Name Role Phone Deepak Cortez MD Primary Care Provider Unav ailable Reason for Visit * Reason Comments Med Refill Encounter Details Date Type Department Care Team (Late st Contact Info) Description 02/17/2016 Refill [facility] PAIN [facility]NAGEMENT [address] [facility] [address] [place] [phone] Bebeto Adams MD [address] [facility] [address] [place] [address] Social History Tobacco Use Types Packs/Day Years [...] [facility] [address] [place] [address] [place] [address] Pj Ace MD [address] [facility] [address] [place] [address] documented as of this encounter Visit Diagnoses Not on filedocumented in this encounter Care Teams Industrial Engineering Technologist Relationship Specialty Start Date End Date Deepak Cortez MD PCP - General 12/31/14 12/12/16 documented as of this encounter
--- OUTSIDE RECORDS SUMMARY | 2024-02-20 09:16 | XMS_ITS | Encounter Summary ---
[facility] Address [address] [place] [address] Care Team Providers Care Ultrasound Tester Name Role Phone Deepak Cortez MD Primary Care Provider Unav ailable Reason for Visit * Reason Onset Date Comments med change 03/07/2016 from [facility] to [facility] Encounter Details Date Type Department Care Team (Late st Contact Info) Description 03/07/2016 Refill [facility] INTERNAL MEDICINE [address] [place] [phone] Deepak Cortez MD Social History Tobacco [...] as of this encounter Progress Notes * Jil Sheets MA - 03/10/2016 3:56 PM ESTAddended by: JIL SHEETS on: 03/10/2016 03:56 PM Modules accepted: Orders documented in this encounter Miscellaneous Notes * Telephone Encounter - Jil Sheets MA - 03/16/2016 10:50 AM EST 03/16/16 Rx was sent in to pharmacy on 03/13/16. * Telephone Encounter - Jany Reyes LPN - 03/14/2016 3:26 PM EST Found 30 tabs of 300 mg Invokana. Put pt name on them for p/u. Please send in the corrected Rx. * Telephone Encounter - Deepak Cortez MD - 03/13/2016 5:25 PM EST She doesn't take metformin * Telephone Encounter - Jil Sheets MA - 03/10/2016 3:47 PM EST 03/10/16 There was only 2 bottles of Invokana 300 mg (qty. 5 tablets each) left. There were several bottles of the Invokomet on the Endo side. * Telephone Encounter - Deepak Cortez MD - 03/10/2016 8:24 AM EST Give her Invokana 300mg 2 mo worth * Telephone Encounter - Jil Sheets MA - 03/09/2016 3:18 PM EST 03/09/16 Please see message from Jany regarding the different dosages of Invokamet and let me know which samples you want the pt to have. * Telephone Encounter - Jany Reyes LPN - 03/08/2016 3:54 PM EST We have invokana 300 Invokamet 50/500 150/500 150/1000 No jardiance that I can find. * Telephone Encounter - Deepak Cortez MD - 03/08/2016 2:54 PM EST Can you check and see if we have any coupons for this drug or Invokana or Jardiance on this side orthe endo side and have her try it. * Telephone Encounter - Jany Reyes LPN - 03/07/2016 8:52 AM EST Pt called to get Farxiga changed. Her insurance will not cover it. She is also unable to tolerate metformin. She needs a 30 day rx. documented in this encounter Plan of Treatment Upcoming Encounters Date Type Department Care Team (Late st Contact Info) Description 03/13/2024 2:45 PM EST Office Visit [facility] CARDIOLOGY [address] [facility] [place] [address] [place] [address] Pj Ace MD [address] [facility] [address] [place] [address] documented as of this encounter Visit Diagnoses Not on filedocumented in this encounter Care Teams Ultrasound Tester Relationship Specialty Start Date End Date Deepak Cortez MD PCP - General 12/31/14 12/12/16 documented as of this encounter
--- OUTSIDE RECORDS SUMMARY | 2024-02-20 09:16 | XMS_ITS | Encounter Summary ---
[facility] Address [address] [place] [id number] Care Team Providers Care Consultant In Ergonomics And Safety Name Role Phone Deepak Cortez MD Primary Care Provider Unav ailable Reason for Visit * Reason Onset Date Comments Med Refill 02/23/2016 Encounter Details Date Type Department Care Team (Late st Contact Info) Description 02/23/2016 Refill [facility] INTERNAL MEDICINE [address] [place] [address] Christie Cox MA Type 2 diabetes mellitus without complication, without [...] encounter Miscellaneous Notes * Telephone Encounter - Christie Cox MA - 02/23/2016 11:07 AM EST Received fax from [employer] requesting a 90 day supply for Farxiga Tabs 10 MG. Resent updatedrx to pharmacy. documented in this encounter Plan of Treatment Upcoming Encounters Date Type Department Care Team (Late st Contact Info) Description 03/13/2024 2:45 PM EST Office Visit [facility] CARDIOLOGY [address] [place] [place] [address] Pj Ace MD [address] [facility] [address] [place] [address] documented as of this encounter Visit Diagnoses Diagnosis Type 2 diabetes mellitus without complication, without long-term current use of insulin documented in this encounter Care Teams Consultant In Ergonomics And Safety Relationship Specialty Start Date End Date Deepak Cortez MD PCP - General 12/31/14 12/12/16 documented as of this encounter
--- OUTSIDE RECORDS SUMMARY | 2024-02-20 09:16 | XMS_ITS | Encounter Summary ---
[facility] Address [address] [place] [address] Care Team Providers Care Accounts Payable Payroll Coordinator Name Role Phone Deepak Cortez MD Primary Care Provider Unav ailable Reason for Visit * Reason Comments Follow-up Annual Exam Encounter Details Date Type Department Care Team (Late st Contact Info) Description 05/08/2016 9:45 AM EST Office Visit [facility] [address] [place] [address] Deepak Cortez MD Type 2 diabetes mellitus without complication, without long-term current use of insulin (Primary Dx); MTHFR mutation (methylenetetrahydrof olate reductase) ([facility]/HCC); Vaginal atrophy; Chronic idiopathic constipation; Type 2 diabetes mellitus without complication Social History Tobacco Use Types Packs/Day Years [...] Sign Reading Time Taken Comments Blood Pressure 144/92 05/08/2016 10:17 AM EST Pulse 98 05/08/2016 10:17 AM EST Temperature 37.2 ??C (98.9 ??F) 05/08/2016 10:[address] Respiratory Rate 18 05/08/2016 10:17 AM EST Oxygen Saturation 99% 05/08/2016 10:17 AM EST Inhaled Oxygen Concentration - - Weight 86.8 kg (191 lb 6.4 oz) 05/08/2016 10:17 AM EST Height - - Body Mass Index 35.01 04/25/2016 1:20 PM EST documented in this encounter Progress Notes * Lida Tadeo - 05/10/2016 10:33 AM ESTAddended by: LIDA TADEO on: 05/10/2016 10:33 AM Modules accepted: Orders * Deepak Cortez MD - 05/08/2016 9:45 AM EST Patient Care Team: Deepak Cortez MD as PCP - General Bebeto Adams MD as Consulting Physician (Pain Medicine) Damien Berg MD as Surgeon (Neurosurgery) Leidy Robertson MD as Consulting Physician (Internal Medicine) Gertrudis Gonzalez 60 y.o. female who presents for an Annual Physical. Gertrudis Gonzalez has a history of Patient Active Problem List Diagnosis ??? Chronic pain ??? Depression ??? Diabetes mellitus ??? Fatigue ??? Hyperlipidemia ??? Herniated lumbar intervertebral disc ??? Leukocytes in urine ??? Vaginal atrophy ??? Postlaminectomy syndrome of lumbar region ??? Meningeal adhesions/lumbar arachnoiditis ??? Lumbar facet arthropathy/lumbar spondylosis without myelopathy ??? Sacroiliac joint dysfunction of left side ??? Obesity with sleep apnea ??? Physical deconditioning ??? Generalized anxiety disorder ??? Moderate obesity ??? Insomnia ??? History of migraine headaches ??? Benign essential hypertension ??? Migraine headache ??? Myofascial pain syndrome ??? Palpitations . Gertrudis Gonzalez has been doing well without new interval problems. Plan to update vaccines if needed today. She was seen By Dr. Burks who dis some genetic testing , She pos for MTHFR gene mutation.He prescribed Deplin which is a folic acid supplement but it is too expensive. She has had a mammo At [facility]. Subjective She constipated and has been trying colace and miralax and probiotics and she still has a bowel movement every three days and they are not well formed. Review of Systems Pertinent items are noted in HPI, all other systems reviewed and negative History Past Medical History Diagnosis Date ??? Anxiety ??? Benign essential [...] syndrome ??? Neck pain ??? Palpitations ??? Spinal cord stimulator status ??? Stress reaction, emotional ??? Urinary incontinence ??? Urinary tract infection ??? Visit for screening mammogram Description: 11/27/2008 ??? Vitamin D deficiency Objective Vital Signs Vitals: 05/08/16 1017 BP: 144/92 Pulse: 98 Resp: 18 Temp: 98.9 ??F (37.2 ??C) SpO2: 99% Physical Exam: General Appearance: Alert, cooperative, in no acute distress Head: Normocephalic, without obvious abnormality, atraumatic Eyes: Lids and lashes normal, conjunctivae and sclerae normal, no icterus, no pallor, corneas clear, PERRLA Ears: Ears appear intact with no abnormalities noted Throat: No oral lesions, no thrush, oral mucosa moist Neck: No adenopathy, supple, trachea midline, no thyromegaly, no carotid bruit, no JVD Back: No kyphosis present, no scoliosis present, no skin lesions, erythema or scars, no tenderness to percussion or palpation, range of motion normal Lungs: Clear to auscultation,respirations regular, even and unlabored Heart: Regular rhythm and normal rate, normal S1 and S2, no murmur, no gallop, no rub, no click Chest Wall: No abnormalities observed Abdomen: Normal bowel sounds, no masses, no organomegaly, soft non-tender, non- distended, no guarding, no rebound tenderness Rectal: Deferred Extremities: Moves all extremities well, no edema, no cyanosis, no redness Pulses: Pulses palpable and equal bilaterally Skin: No bleeding, bruising or rash Lymph nodes: No palpable adenopathy Neurologic: Cranial nerves 2 - 12 grossly intact, sensation intact, DTR present and equal bilaterally Current Outpatient Prescriptions: ??? acetaminophen (TYLENOL) 500 MG tablet, Take 1 tablet by mouth. Every 4 to 6 hours as needed, Disp: , Rfl: ??? baclofen (LIORESAL) 10 MG tablet, TAKE INSTRUCTED BY YOUR PRESCRIBER, Disp: 270 tablet, Rfl:1 ??? Canagliflozin (INVOKANA) 300 MG tablet, Take 300 mg by mouth Daily., Disp: 90 tablet, Rfl: 1 ??? chlorthalidone (HYGROTEN) 25 MG tablet, Take 1 tablet by mouth daily., Disp: 90 tablet, Rfl: 1 ??? desvenlafaxine (PRISTIQ) 100 MG 24 hr tablet, Take 1 tablet by mouth daily., Disp: , Rfl: ??? Diclofenac Potassium (ZIPSOR) 25 MG capsule, Take 1 capsule by mouth 4 (four) times a day as needed (for moderate to severe pain), Disp: 120 capsule, Rfl: 2 ??? doxazosin (CARDURA) 2 MG tablet, Take 1 1/2 tablets by mouth every night., Disp: 60 tablet, Rfl: 2 ??? estradiol (ESTRACE VAGINAL) 0.1 MG/GM vaginal cream, Insert into the vagina. 1 Applicatorfull at bedtime for one week, then 1 applicator 3 nights a week for a week, then once weekly, Disp: , Rfl: ??? lidocaine (LIDODERM) 5 %, Apply 1 patch topically. To the affected area and leave in place for 12 hours, then remove and leave off for 12 hours, Disp: , Rfl: ??? Liniments (SALONPAS) pads, Apply topically. prn, Disp: , Rfl: ??? topiramate (TOPAMAX) 50 MG tablet, TAKE ONE TABLET BY MOUTH TWICE DAILY, Disp: 180 tablet, Rfl:0 ??? traMADol (ULTRAM) 50 MG tablet, Take 1 tablet by mouth 2 (Two) Times a Day As Needed for moderate pain (4-6)., Disp: 60 tablet, Rfl: 1 ??? traZODone (DESYREL) 50 MG tablet, TAKE 1 TO 2 TABLETS AT BEDTIME NEEDED, Disp: 180 tablet, Rfl: 2 ??? ziprasidone (GEODON) 40 MG capsule, , Disp: , Rfl: Results Review: I reviewed the patient's new clinical results: Lab Results (most recent) None Gertrudis was seen today for follow-up and annual exam. Diagnoses and all orders for this visit: Type 2 diabetes mellitus without complication, without long-term current use of insulin - nateglinide (STARLIX) 120 MG tablet; Take 1 tablet by mouth 3 (Three) Times a Day Before Meals. - pneumococcal polysaccharide 23-valent (PNEUMOVAX-23) vaccine 0.5 mL; Inject 0.5 mL into the shoulder, thigh, or buttocks During Hospitalization for immunization. - Cancel: Comprehensive Metabolic Panel; Future - Lipid Panel - Comprehensive Metabolic Panel MTHFR mutation (methylenetetrahydrofolate reductase) - Homocysteine, serum - Folate - Cancel: CBC (No Diff) - CBC (No Diff) Vaginal atrophy - estradiol (ESTRACE VAGINAL) 0.1 MG/GM vaginal cream; Insert 2 g into the vagina 1 (One) Time Per Week. Chronic idiopathic constipation - TSH - Linaclotide 145 MCG capsule; Take 145 mcg by mouth Daily. I discussed the patients findings and my recommendations with patient. documented in this encounter Plan of Treatment Upcoming Encounters Date Type Department Care Team (Late st Contact Info) Description 03/13/2024 2:45 PM EST Office Visit [facility] C[facility] [address] [facility] [place] [address] Pj Ace MD [facility] [facility] [address] [facility] [address] [place] [address] documented as of this encounter Procedures Procedure Name Priority Date/Time Associated Diagnosis Comments CBC (NO DIFF) Routine 05/08/2016 11:30 AM EST MTHFR mutation (methylenetetrahydro folate reductase) ([facility]) TSH Routine 05/08/2016 11:30 AM EST Chronic idiopathic constipation HOMOCYSTEINE Routine 05/08/2016 11:30 AM EST MTHFR mutation (methylenetetrahydro folate reductase) (CMS/HCC) FOLATE Routine 05/08/2016 11:30 AM EST MTHFR mutation (methylenetetrahydro folate reductase) (CMS/HCC) LIPID PANEL Routine 05/08/2016 11:30 AM EST Type 2 diabetes mellitus without complication, without long-term current use of insulin COMPREHENSIVE METABOLIC PANEL Routine 05/08/2016 11:30 AM EST Type 2 diabetes mellitus without complication, without long-term current use of insulin documented in this encounter Results * (ABNORMAL) CBC (No Diff) (05/08/2016 11:30 AM EST) Pathologist [facility] WBC 5.09 3.50 - 10.80 10*3/mm3 05/08/2016 4:50 PM EST [facility] RBC 5.11 3.89 - 5.14 10*6/mm3 05/08/2016 4:50 PM [facility] Hemoglobin 15.5 11.5 - 15.5 g/dL 05/08/2016 4:50 PM [facility] Hematocrit 47.0(H) 34.5 - 44.0 % 05/08/2016 4:50 PM [facility] MCV 92.0 80.0 - 99.0 fL 05/08/2016 4:50 PM [facility] MCH 30.3 27.0 - 31.0 pg 05/08/2016 4:50 PM [facility] MCHC 33.0 32.0 - 36.0 g/dL 05/08/2016 4:50 PM [facility] RDW 13.3 11.3 - 14.5 % 05/08/2016 4:50 PM [facility] RDW-SD 44.9 37.0 - 54.0 fl 05/08/2016 4:50 PM [facility] MPV 10.9 6.0 - 12.0 fL 05/08/2016 4:50 PM EST [facility] Platelets 229 150 - 450 10*3/mm3 05/08/2016 4:50 PM [facility] Blood Venipuncture / Unknown 05/08/2016 11:30 AM EST 05/08/2016 11:30 AM EST Deepak Cortez MD LAB BLOOD ORDERABLES Final Result [facility]
[address] [place] [address], * (ABNORMAL) Comprehensive Metabolic Panel (05/08/2016 11:30 AM EST) Glucose 129(H) 70 - 100 mg/dL 05/08/2016 5:31 PM [facility] BUN 18 9 - 23 mg/dL 05/08/2016 5:31 PM [facility] Creatinine 0.60 0.60 - 1.30 mg/dL 05/08/2016 5:31 PM [facility] Sodium 142 132 - 146 mmol/L 05/08/2016 5:31 PM [facility] Potassium 4.1 3.5 - 5.5 mmol/L 05/08/2016 5:31 PM [facility] Chloride 100 99 - 109 mmol/L 05/08/2016 5:31 PM [facility] CO2 35.0(H) 20.0 - 31.0 mmol/L 05/08/2016 5:31 PM [facility] Calcium 10.5(H) 8.7 - 10.4 mg/dL 05/08/2016 5:31 PM [facility] Total Protein 7.3 5.7 - 8.2 g/dL 05/08/2016 5:31 PM [facility] Albumin 4.40 3.20 - 4.80 g/dL 05/08/2016 5:31 PM [facility] ALT (SGPT) 67(H) 7 - 40 U/L 05/08/2016 5:31 PM [facility] AST (SGOT) 38(H) 0 - 33 U/L 05/08/2016 5:31 PM [facility] Alkaline Phosphatase 115(H) 25 - 100 U/L 05/08/2016 5:31 PM [facility] Total Bilirubin 0.5 0.3 - 1.2 mg/dL 05/08/2016 5:31 PM [facility] eGFR Non Amer 102 >60 mL/min/1.7 3 05/08/2016 5:31 PM [facility] Globulin 2.9 gm/dL 05/08/2016 5:31 PM [facility] A/G Ratio 1.5 1.5 - 2.5 g/dL 05/08/2016 5:31 PM [facility] BUN/Creatinine Ratio 30.0(H) 7.0 - 25.0 05/08/2016 5:31 PM [facility] Anion Gap 7.0 3.0 - 11.0 mmol/L 05/08/2016 5:31 PM [facility] Blood Venipuncture / Unknown 05/08/2016 11:30 AM EST 05/08/2016 11:30 AM [facility] - 05/08/2016 5:31 PM EST National [employer] Guidelines Stage ? Description ? GFR ? 1 ? Normal or High ?90+ 2 ? Mild decrease ?60-89 3 ? Moderate decrease ? 30-59 4 ? Severe decrease ? 15-29 5 ? Kidney failure ? <15 us Deepak Cortez MD LAB BLOOD ORDERABLES Final Result Performing Organization Address [facility] de Phone Number [facility]
[address] [place] [address], * TSH (05/08/2016 11:30 AM EST) [facility] TSH 2.513 0.350 - 5.350 mIU/mL 05/08/2016 5:31 PM EST [facility] Blood Venipuncture / Unknown 05/08/2016 11:30 AM EST 05/08/2016 11:30 AM EST us Deepak Cortez MD LAB BLOOD ORDERABLES Final Result Performing Organization Address [facility] de Phone Number [facility]
[address] [place] [address], * (ABNORMAL) Lipid Panel (05/08/2016 11:30 AM EST) [facility] Total Cholesterol 290(H) 0 - 200 mg/dL 05/08/2016 5:31 PM EST [facility] Triglycerides 232(H) 0 - 150 mg/dL 05/08/2016 5:31 PM EST [facility] HDL Cholesterol 60 40 - 60 mg/dL 05/08/2016 5:31 PM EST [facility] LDL Cholesterol 200(H) 0 - 130 mg/dL 05/08/2016 5:31 PM EST [facility] Blood Venipuncture / Unknown 05/08/2016 11:30 AM EST 05/08/2016 11:30 AM EST [facility] - 05/08/2016 5:31 PM EST Cholesterol Reference Ranges: Desirable ? [...] mg/dL Very High ? > 189 mg/dL Deepak Cortez MD LAB BLOOD ORDERABLES Final Result [facility]
[address] [place] [address], * (ABNORMAL) Folate (05/08/2016 11:30 AM EST) Folate >24.00(H) 3.20 - 20.00 ng/mL 05/08/2016 5:31 PM EST [facility] Blood Venipuncture / Unknown 05/08/2016 11:30 AM EST 05/08/2016 11:30 AM EST Narrative [facility] - 05/08/2016 5:31 PM EST Folate Reference Ranges: Deficient: ?Less than 1.2 ng/mL Indeterminant: ?1.2-3.1 ng/mL Normal: ? 3.2-20.0 ng/mL Deepak Cortez MD LAB BLOOD ORDERABLES Final Result Performing Organization Address [facility] Co de Phone Number [facility]
[address] [place] [address], * Homocysteine, serum (05/08/2016 11:30 AM EST) Homocysteine, Plasma (Quant) 10.4 5.0 - 13.9 umol/L 05/08/2016 5:31 PM EST [facility] Blood Venipuncture / Unknown 05/08/2016 11:30 AM EST 05/08/2016 11:30 AM EST Deepak Cortez MD LAB BLOOD ORDERABLES Final Result Performing Organization Address [facility] de Phone Number [facility]
[address] [place] [address], documented in this encounter Visit Diagnoses Diagnosis Type 2 diabetes mellitus without complication, without long-term current use of insulin- Primary MTHFR mutation (methylenetetrahydrofolate reductase) Disturbances of sulphur-bearing amino-acid metabolism Vaginal atrophy Postmenopausal atrophic vaginitis Chronic idiopathic constipation Unspecified constipation Type 2 diabetes mellitus without complication documented in this encounter Care Teams Accounts Payable Payroll Coordinator Relationship Specialty Start Date End Date Deepak Cortez MD PCP - General 12/31/14 12/12/16 documented as of this encounter
--- OUTSIDE RECORDS SUMMARY | 2024-02-20 09:16 | XMS_ITS | Encounter Summary ---
[facility] Address [address] [place] [address] Care Team Providers Care Folder Taper Operator Name Role Phone Deepak Cortez MD Primary Care Provider Unav ailable Reason for Referral * Consultation (Routine) - Closed Specialty Diagnoses / Procedures Referred By Yodit salinas Referred To Contact Pulmonary Disease Diagnoses Obesity with sleep apnea Bebeto Adams MD [address] [place] [address] Phone: tel: fax: Referral ID Status Reason Start Date Expiration Date V isits Requested Visits Authorized [id number] Closed Specialty Services Required 05/23/2016 05/23/2017 1 1 Reason for Visit * Reason Comments Follow-up SCS Encounter Details Date Type Department Care Team (Late st Contact Info) Description 05/23/2016 2:15 PM EST Office Visit [facility] [address] [address] Bebeto Adams MD [address] [place] [id number] Postlaminectomy syndrome of lumbar region; Meningeal adhesions/lumbar arachnoiditis; Lumbar facet arthropathy/lumbar spondylosis without myelopathy; Herniated lumbar intervertebral disc; Sacroiliac joint dysfunction of left side; Myofascial pain syndrome; History of migraine headaches; Moderate obesity; Obesity with sleep apnea; Benign essential hypertension; Diabetes mellitus type 2 in obese; Generalized anxiety disorder; Insomnia, unspecified type; Anxiety and depression; Physical deconditioning Social History Tobacco Use Types [...] Sign Reading Time Taken Comments Blood Pressure 181/99 05/23/2016 3:08 PM EST Pulse 98 05/23/2016 1:27 PM EST Temperature 36.1 ??C (97 ??F) 05/23/2016 1:27 PM EST Respiratory Rate 20 05/23/2016 1:27 PM EST Oxygen Saturation 96% 05/23/2016 1:27 PM EST Inhaled Oxygen Concentration - - Weight 85.3 kg (188 lb) 05/23/2016 1:27 PM EST Height 157.5 cm (5' 2 ) 05/23/2016 1:27 PM EST Body Mass Index 34.39 05/23/2016 1:27 PM EST documented in this encounter Progress Notes * Bebeto Adams MD - 05/23/2016 2:15 PM EST Chief Complain: I did well with the stimulator after my last reprogramming. I started having pain two days ago. ? Brief History: Ms. Gonzalez returns to the clinic for evaluation of her chronic pain and possible reprogramming. Spinal cord stimulator device system: Patient underwent implantation of her spinal cord stimulator device system on December 31, [address] Dam[address] Berg[address] [employer] Penta lead with the top electrodes projecting at the level of the superior endplate of the T7 vertebral body. IPG: Prot??g?? Pain level: 3/10 Pain level ranges from 1/10 to 8/10 with the spinal cord stimulator on. Pain location: Left gluteal region and posterior left lower extremity down to the plantar aspect ofthe left foot. Quality of pain: Throbbing and burning Radiation of pain: The left gluteal pain radiates down to the posterior aspect of her thigh, the left calf and into the plantar aspect of the left foot, the 2nd and 3rd toes. The lower back pain and right sided lower extremity pain have resolved since last reprogramming. Current analgesics: ice and heat in the areas of her chronic pain, SalonPas, baclofen, Tramadol, Zipsor, Lidocaine Patches and Tylenol without side effects. I have reviewed GENE #[id number], is consistent with medication reconciliation. Comorbid factors: Depression and anxiety: Patient continues struggling with depression and anxiety. She continues under the care of Dr. Burks. Patient continues on Pristiq, Geodon, trazodone, Seroquel. She continues CBT with Yoanna Osman. Physical deconditioning: She has not resumed water therapy or physical therapy Sleep disturbance: Patient has agreed to proceed with a sleep study. Obesity: Patient will follow up with [facility]. Diabetes: NIDDM, not controlled. No meds. Review of diagnostic studies UDS on 03/07/2016, appropriate X-rays of [...] ?? Review of Systems Musculoskeletal: Positive for back pain. Psychiatric/Behavioral: Positive for sleep disturbance. The patient is nervous/anxious. All other systems reviewed and are negative. Visit Vitals ??? BP (!) 181/99 ??? Pulse 98 ??? Temp 97 ??F (36.1 ??C) (Temporal Artery ) ??? Resp 20 ??? Ht 62 (157.5 cm) ??? Wt 188 lb (85.3 kg) ??? SpO2 96% ??? BMI 34.39 kg/m2 Physical Exam Neurologic Exam [...] her stimulator device for a total of 49 hours since last reprogramming, and 8997 lifetime hours (24 hours per day). Analysis of impedance reveals normal impedance for all contacts. Spinal cord stimulator device was reprogrammed under my supervision by adjusting electrode polarities, pulse width, pulse rate, amplitudes, BurstDR, by recreating one program and adding a second program, as follows; Program TWO (best program) Electrode polarities: 1+, 2-, 6- Amplitude: 1.2 to 1.5 mA Pulse width: 1000 mcs [...] of migraine headaches 8. Moderate obesity 9. Obesity with sleep apnea 10. Benign essential hypertension 11. Diabetes mellitus type 2 in obese 12. Generalized anxiety disorder 13. Insomnia, unspecified type 14. Anxiety and depression 15. Physical deconditioning PLAN: Patient's chronic pain condition continues to improve with adjustments of her spinal cord stimulator device. Patient continues to struggle with anxiety, depression and insomnia. Continue current management and any additional workup, referrals, and treatments as outlined in the following plan: 1. Follow-up in eight weeks to assess response to new spinal cord stimulator programs. If patient continues to struggle with pain, then, we may proceed with diagnostic and therapeutic left L5-S1 transforaminal epidural steroid injection. We may repeat another epidural depending on patient???s outcome. 2. Long-term rehabilitation efforts: a. Resume comprehensive physical therapy program b. Resume water therapy c. Follow-up at [facility] d. Follow-up [...] needed muscle spasms f. Tramadol 50 mg twice a day as [...] Future Appointments Date Time Provider Department Center 08/03/2016 10:30 AM Deepak Cortez MD [facility] None Bebeto Adams MD ? documented in this encounter Plan of Treatment Upcoming Encounters Date Type Department Care Team (Late st Contact Info) Description 03/13/2024 2:45 PM EST Office Visit [facility] [address] [place] [address] [place] [address] Pj Ace MD [address] [facility] [address] [place] [address] Scheduled Referrals Name Type Priority Associated Diagnoses Order Schedule Ambulatory Referral to Pulmonology Outpatient Referral Routine Obesity with sleep apnea Ordered: 05/23/2016 documented as of this encounter Procedures Procedure Name Priority Date/Time Associated Diagnosis Comments SCANNED - TELEMETRY 05/23/2016 documented in this encounter Results * SCANNED - TELEMETRY (05/23/2016) Anatomical Region Laterality Modality Other us Bebeto [...] myositis History of migraine headaches Moderate obesity Obesity with sleep apnea Benign essential hypertension Essential hypertension, benign Diabetes mellitus type 2 in obese Type II or unspecified type diabetes mellitus without mention of complication, not stated as uncontrolled Generalized anxiety disorder Insomnia, unspecified type Anxiety and depression Physical deconditioning Muscular wasting and disuse atrophy, not elsewhere classified documented in this encounter Care Teams Folder Taper Operator Relationship Specialty Start Date End Date Deepak Cortez MD PCP - General 12/31/14 12/12/16 documented as of this encounter
--- OUTSIDE RECORDS SUMMARY | 2024-02-20 09:16 | XMS_ITS | Encounter Summary ---
Author Organization [facility] Address [address] [place] [id number] Care Team Providers Care Asphalt Roller Operator Name Role Phone Deepak Cortez MD Primary Care Provider Unav ailable Reason for Visit * Reason Onset Date Comments Med Refill 01/07/2016 Encounter Details Date Type Department Care Team (Late st Contact Info) Description 01/07/2016 Refill [facility] INTERNAL MEDICINE [address] [place] [phone] Deepak Cortez MD Social History Tobacco [...] encounter Miscellaneous Notes * Telephone Encounter - Jany Reyes LPN - 01/07/2016 3:35 PM EDT Patient wanted her meds changed from 90 days to 60 day supply for insurance purposes. Sent as requested. documented in this encounter Plan of Treatment Upcoming Encounters Date Type Department Care Team (Late st Contact Info) Description 03/13/2024 2:45 PM EST Office Visit [facility] CARDIOLOGY [address] [place] [address] Pj Ace MD [address] [place] [address] documented as of this encounter Visit Diagnoses Not on filedocumented in this encounter Care Teams Asphalt Roller Operator Relationship Specialty Start Date End Date Deepak Cortez MD PCP - General 12/31/14 12/12/16 documented as of this encounter
--- OUTSIDE RECORDS SUMMARY | 2024-02-20 09:16 | XMS_ITS | Encounter Summary ---
[facility] Address [address] [place] [address] Care Team Providers Care Straightening Press Operator Helper Name Role Phone Deepak Cortez MD Primary Care Provider Unav ailable Reason for Visit * Reason Onset Date Comments Med Refill 04/27/2016 invokana 300 mg tabs Encounter Details Date Type Department Care Team (Late st Contact Info) Description 04/27/2016 Refill [facility] INTERNAL MEDICINE [address] [place] [phone] Jil Earl MA Social History Tobacco Use Types Packs/Day [...] Miscellaneous Notes * Telephone Encounter - Jil Earl MA - 04/27/2016 8:33 AM EST 04/27/16 Pharmacy sent a fax requesting to changeover operator to a 90-day supply. Rx was re-sent to pharmacy. documented in this encounter Plan of Treatment Upcoming Encounters Date Type Department Care Team (Late st Contact Info) Description 03/13/2024 2:45 PM EST Office Visit [facility] CARDIOLOGY [address] [facility] [place] [address] Pj Ace MD [address] [place] [address] documented as of this encounter Visit Diagnoses Not on filedocumented in this encounter Care Teams Straightening Press Operator Helper Relationship Specialty Start Date End Date Deepak Cortez MD PCP - General 12/31/14 12/12/16 documented as of this encounter
--- OUTSIDE RECORDS SUMMARY | 2024-02-20 09:16 | XMS_ITS | Encounter Summary ---
[facility] Address [address] [place] [address] Care Team Providers Care Video Games Mechanic Name Role Phone Deepak Cortez MD Primary Care Provider Unav ailable Reason for Visit * Reason Onset Date Comments Med Refill 02/22/2016 Encounter Details Date Type Department Care Team (Late Contact Info) Description 02/22/2016 Refill [facility] INTERNAL MEDICINE [address] [place] [phone] Deepak Cortez MD Type 2 diabetes [...] Telephone Encounter - Jany Reyes LPN - 02/22/2016 9:16 AM EST escribed per protocol documented in this encounter Plan of Treatment Upcoming Encounters Date Type Department Care Team (Late st Contact Info) Description 03/13/2024 2:45 PM EST Office Visit [facility] CARDIOLOGY [address] [facility] [place] [address] Pj Ace MD [address] [facility] [address] [place] [address] documented as of this encounter Visit Diagnoses Diagnosis Type 2 diabetes mellitus without complication, without long-term current use of insulin documented in this encounter Care Teams Video Games Mechanic Relationship Specialty Start Date End Date Deepak Cortez MD PCP - General 12/31/14 12/12/16 documented as of this encounter
--- OUTSIDE RECORDS SUMMARY | 2024-02-20 09:16 | XMS_ITS | Encounter Summary ---
[facility] Address [address] [place] [address] Care Team Providers Care Film Laboratory Technician Name Role Phone Deepak Cortez MD Primary Care Provider Unav ailable Reason for Visit * Reason Comments Follow-up Back Pain Extremity Pain Lt leg and foot pain Encounter Details Date Type Department Care Team (Late st Contact Info) Description 03/07/2016 1:00 PM EST Office Visit [facility] PAIN MANAGEMENT [address] [phone] Bebeto Adams MD [address] [address] Medication monitoring encounter (Primary Dx); Postlaminectomy syndrome of lumbar region; Meningeal adhesions/lumbar [...] Sign Reading Time Taken Comments Blood Pressure 163/94 03/07/2016 1:03 PM EST Pulse 95 03/07/2016 1:03 PM EST Temperature 36.6 ??C (97.8 ??F) 03/07/2016 1:03 PM ES T Respiratory Rate 18 03/07/2016 1:03 PM EST Oxygen Saturation - - Inhaled Oxygen Concentration - - Weight 86.9 kg (191 lb 9.6 oz) 03/07/2016 1:03 P M EST Height 157.5 cm (5' 2 ) 03/07/2016 1:03 PM EST Body Mass Index 35.04 03/07/2016 1:03 PM EST documented in this encounter Progress Notes * Bebeto Adams MD - 03/07/2016 1:00 PM EST Chief Complain: I am doing better with the stimulator. I am not sure if I need to be reprogrammed.After I stopped tramadol, I started having pain from my arthritis. ? Brief History: Ms. Gonzalez returns to the clinic for evaluation of left buttocks and left lower extremity pain and possible reprogramming of her [employer] spinal cord stimulator device. Pain level: 4/10. Average pain level last week: 7/10 Pain level ranges from 3/10 to 10/10 Quality of pain: Throbbing and burning in the lower extremities, and it just hurts across my lowerback Radiation of pain: Pain across the lower back that radiates down to the buttocks, the posterior aspect of her thighs, lateral aspect of the left leg and into the left foot, the 2nd and 3rd toes. The right sided pain radiates up to the heel. She was reprogrammed on her last visit and reports she felt better until last week when she developed a flareup of her pain. She feels paresthesia across her lower back, down bilateral lower extremities into the feet, and the pain sometimes overrides the stimulation. Comorbid factors: Her depression is getting worse. She continues under the care of Dr. Burks. Patient continues on Pristiq, which was increased before her last visit, and Abilify. She continues therapy with Yoanna Osman for counseling. She has resumed water therapy. She is currently participating in physical therapy. She has declinedfurther follow up after her sleep study. She has been released by [facility]. She uses ice and heat in the areas of her chronic pain. In terms of analgesics, she uses SalonPas, and baclofen, Tramadol, Zipsor, Lidocaine Patches and Tylenol without side effects. GENE #[id number], is consistent with medication reconciliation. There are no new diagnostic studies to review. ? Diagnostic Studies: X-rays of the sacroiliac [...] and are negative. Visit Vitals ??? BP 163/94 (BP Location: Left arm, Patient Position: Sitting) ??? Pulse 95 ??? Temp 97.8 ??F (36.6 ??C) (Temporal Artery ) ??? Resp 18 ??? Ht 62 (157.5 cm) ??? Wt 191 lb 9.6 oz (86.9 kg) ??? BMI 35.04 kg/m2 Physical Exam Neurologic Exam Constitutional General [...] her stimulator device for a total of 239 hours since last reprogramming, and 7687 lifetime hours (9.5 hours per day). Analysis of impedance reveals normal impedance for all contacts. Spinal cord stimulator device was reprogrammed under my supervision by adjusting electrode polarities, pulse width, pulse rate, and amplitudes, by recreating program one and two and and adding a new program, as follows; Program THREE Electrode polarities: 1+, 2-, 3+, 4+, 5-, 6- Amplitude: 4.8 mA (0-25.5) Pulse width: 325 mcs Pulse Rate: 120 Hz Time spent reprogrammin minutes. A copy [...] in the following plan: 1. Follow-up on 04/25/2016 at 13:00. We will introduce BurstDR as soon as it becomes available. If patient continues to struggle with pain, then, we will proceed with diagnostic/therapeutic right L4-L5 and left L5-S1 transforaminal epidural steroid injection. We may repeat another epidural depending on patient???s outcome. 2. Long-term rehabilitation efforts: a. Continue comprehensive physical therapy program b. Continue water therapy c. Follow-up at [facility] d. Follow-up with Dr. Diogenes Neville for cognitive behavioral therapy and biofeedback e. Follow-up with Dr. Lozano for her sleep apnea f. Follow-up with Dr. Bukrs for her unrelenting anxiety, depression and insomnia g. The patient does not have a history of falls. I did complete a risk assessment for falls. Fall precautions: Patient has been instructed regarding [...] not to take any other NSAIDs d. May take tramadol 50 mg from 1 tablet twice a day as needed for severe breakthrough pain, then once a day for another week, then, discontinue tramadol e. Continue lidocaine patches f. Continue baclofen 10 mg 1/2 to 1 tablet 1-2 times a day as needed muscle spasms g. Continue Pristiq and Abilify as prescribed by Dr. Burks 4. Tramadol 50 mg twice a day as needed for breakthrough pain. Patient has completed a SOAPP questionnaire and ORT questionnaire (revealing low risk). Gene reports have been reviewed and appropriate. 5. Diagnostics: random urine drug screening 6. The patient has been instructed to contact my office with any questions or difficulties. The patient understands the plan and agrees to proceed accordingly. Patient Care Team: Deepak Cortez MD as PCP - General Deepak Cortez MD as Referring Physician (Internal Medicine) Bebeto Adams MD as Consulting Physician (Pain Medicine) Damien Berg MD as Surgeon (Neurosurgery) No orders of the defined types were placed in this encounter. Future Appointments Date Time Provider Department Center 05/08/2016 9:45 AM Deepak Cortez MD [facility] Bebeto Adams MD ? documented in this encounter Plan of Treatment Upcoming Encounters Date Type Department Care Team (Late st Contact Info) Description 03/13/2024 2:45 PM EST Office Visit [facility] CARDIOLOG[facility] [address] [place] [address] [place] [address] Pj Ace MD [address] [place] [address] documented as of this encounter Procedures Procedure Name Priority Date/Time Associated Diagnosis Comments URINE DRUG SCREEN Routine 03/07/2016 7:3 0 PM EST Chronic pain syndrome Medication monitoring encounter SCANNED - TELEMETRY 03/07/2016 documented in this encounter Results * Urine Drug Screen (03/07/2016 7:30 PM EST) THC, Screen, Urine Negative Negative 2015 7:56 PM [facility] Phencyclidine (PCP), Urine Negative Negative 03/07/2016 7:56 PM [facility] Cocaine Screen, Urine Negative Negative 03/07/2016 7:56 PM [facility] Methamphetamine, Ur Negative Negative 03/07 7:56 PM [facility] Opiate Screen Negative Negative 03/07/2016 7:56 PM [facility] Amphetamine Screen, Urine Negative Negative 03/07/2016 7:56 PM [facility] Benzodiazepine Screen, Urine Negative Negative 03/07/2016 7:56 PM [facility] Tricyclic Antidepressants Screen Negative Negative 03/07/2016 7:56 PM [facility] Methadone Screen, Urine Negative Negative 03/07/2016 7:56 PM [facility] Barbiturates Screen, Urine Negative Negative 03/07/2016 7:56 PM [facility] Oxycodone Screen, Urine Negative Negative 03/07/2016 7:56 PM [facility] Propoxyphene Screen Negative Negative 03/07 7:56 PM [facility] Buprenorphine, Screen, Urine Negative Negative 03/07/2016 7:56 PM [facility] Urine Urine specimen collection, clean catch / Unknown Collection / Unknown 03/07/2016 7:30 PM EST 03/07/2016 7:30 PM EST Narrative [facility] - 03/07/2016 7:56 PM EST Cutoff For Drugs Screened: Amphetamines ? 500 [...] when unconfirmed results are used. ?? us Bebeto Adams MD URINE ORDERABLES Final Result [facility]
[address] [place] [id number], * SCANNED - TELEMETRY (03/07/2016) Anatomical Region Laterality Modality Other us Bebeto Adams MD ECG ORDERABLES Final Result documented in this encounter Visit Diagnoses Diagnosis Medication monitoring encounter- Primary Encounter for therapeutic drug monitoring Postlaminectomy syndrome of lumbar region Postlaminectomy syndrome, [...] classified documented in this encounter Care Teams Film Laboratory Technician Relationship Specialty Start Date End Date Deepak Cortez MD PCP - General 12/31/14 12/12/16 documented as of this encounter
--- OUTSIDE RECORDS SUMMARY | 2024-02-20 09:16 | XMS_ITS | Encounter Summary ---
[facility] Address [address] [place] [address] Care Team Providers Care Car Porter Name Role Phone Deepak Cortez MD Primary Care Provider Unav ailable Encounter Details Date Type Department Care Team (Late st Contact Info) Description 11/17/2015 Telephone [facility] INTER[facility] MEDICINE [address] [place] [phone] Venita Smith MA Social History Tobacco Use Types Packs/Day [...] Telephone Encounter - Venita Smith MA - 11/17/2015 3:20 PM EDT Patient given 1 month supply of Invokana samples Sent message to Dr cortez to see if the medication can be changed or samples given ----- Message from Radha Prescott sent at 11/17/2015 3:03 PM EDT ----- Contact: patient Please call the patient in a prescript for her diabetes. The one she has cost $450 after the insurance. documented in this encounter Plan of Treatment Upcoming Encounters Date Type Department Care Team (Late st Contact Info) Description 03/13/2024 2:45 PM EST Office Visit [facility] [address] [place] [address] [place] [address] Pj Ace MD [address] [facility] [address] [facility] [address] [place] [address] documented as of this encounter Visit Diagnoses Not on filedocumented in this encounter Care Teams Car Porter Relationship Specialty Start Date End Date Deepak Cortez MD PCP - General 12/31/14 12/12/16 documented as of this encounter
--- OUTSIDE RECORDS SUMMARY | 2024-02-20 09:16 | XMS_ITS | Encounter Summary ---
[facility] Address [address] [place] [phone] Care Team Providers Care Medical Office Clerk Name Role Phone Deepak Cortez MD Primary Care Provider Unav ailable Reason for Visit * Reason Onset Date Comments Med Refill 02/21/2016 Encounter Details Date Type Department Care Team (Late st Contact Info) Description 02/21/2016 Telephone [facility] [address] [facility] [address] [place] [phone] Danelle Argueta MA Med Refill Social History Tobacco Use Types [...] encounter Miscellaneous Notes * Telephone Encounter - Bebeto Adams MD - 02/21/2016 2:33 PM EST OK to Call the prescription to the pharmacy for this month. THis is not an E-prescribe. * Telephone Encounter - Danelle Argueta MA - 02/21/2016 1:23 PM EST [facility] called today and asked for a refill of her Tramadol. I read her the POC from 02/01/2016 . You said to wean her off Tramadol at 2 po Q day for one week and then 1 po Q day for one week and stop. She is not happy about this. She said she has to have it. She takes it up to 5 times a day, sometimes 2 at a time. She wants you to reconsider leaving her on it. She takes it with Tylenol 500 and oth er meds when her pain is bad.I only called in #21 with 0 refills per your insructions to Michelle Lopez. She wants a call back about this. documented in this encounter Plan of Treatment Upcoming Encounters Date Type Department Care Team (Late st Contact Info) Description 03/13/2024 2:45 PM EST Office Visit [facility] C[facility] [address] [facility] [place] [address] Pj Ace MD [address] [facility] [address] [facility] [address] [place] [address] documented as of this encounter Visit Diagnoses Not on filedocumented in this encounter Care Teams Medical Office Clerk Relationship Specialty Start Date End Date Deepak Cortez MD PCP - General 12/31/14 12/12/16 documented as of this encounter
--- OUTSIDE RECORDS SUMMARY | 2024-02-20 09:16 | XMS_ITS | Encounter Summary ---
[facility] Address [address] [place] [address] Care Team Providers Care Curbing Stonecutter Name Role Phone Deepak Cortez MD Primary Care Provider Unav ailable Reason for Visit * Reason Comments Follow-up Back Pain Encounter Details Date Type Department Care Team (Late st Contact Info) Description 05/16/2016 11:00 AM EST Office Visit [facility] [address] [phone] Bebeto Adams MD [address] [address] Postlaminectomy syndrome of lumbar region; Meningeal adhesions/lumbar arachnoiditis; Lumbar facet arthropathy/lumbar spondylosis without myelopathy; Herniated lumbar intervertebral disc; Sacroiliac joint dysfunction of left side; Myofascial pain syndrome; History of migraine headaches; Moderate obesity; Obesity with sleep apnea; Insomnia, unspecified type; Generalized anxiety disorder; Other depression; Physical deconditioning Social History Tobacco Use [...] Sign Reading Time Taken Comments Blood Pressure 150/93 05/16/2016 10:35 AM EST Pulse 111 05/16/2016 10:35 AM EST Temperature 36 ??C (96.8 ??F) 05/16/2016 10:35 AM EST Respiratory Rate 18 05/16/2016 10:35 AM EST Oxygen Saturation 97% 05/16/2016 10:35 AM EST Inhaled Oxygen Concentration - - Weight 85.3 kg (188 lb) 05/16/2016 10:35 AM EST Height 157.5 cm (5' 2 ) 05/16/2016 10:35 AM EST Body Mass Index 34.39 05/16/2016 10:35 AM EST documented in this encounter Progress Notes * Bebeto Adams MD - 05/16/2016 11:00 AM EST Chief Complain: I have been doing much better with the stimulator since my last reprogramming. ? Brief History: Ms. Gonzalez returns to the clinic for evaluation of her chronic pain, particularly involving her left gluteal region and left lower extremity down to the foot. Patient reports significant improvement of these pains after her last reprogramming. Spinal cord stimulator device system: Patient underwent implantation of her spinal cord stimulator device system on December 31, [address] Damien Berg[address] [employer] Penta lead with the top electrodes projecting at the level of the superior endplate of the T7 vertebral body. IPG: Prot??g?? Pain level: 3/10 (decreased) Average pain level last week: 3/10 (decreased in comparison to last visit) Pain level ranges from 1/10 to 3/10 with the spinal cord stimulator on (decreased in comparison to last visit) Quality of pain: Throbbing and burning in the left lower extremity Radiation of pain: Pain radiates from her lower back down to the left gluteal region, the posterioraspect of her thigh, the lateral aspect of the left leg and into the left foot, the 2nd and 3rd toes. The right sided pain is intermittent and less frequent and radiates up to the heel. Comorbid factors: Depression: Patient continues struggling. She continues under the care of Dr. Burks. Patient continues on Pristiq, which has been increased. She was prescribed Latuda, but due to high copays has beenchange to a different medication. She continues CBT with Yoanna Osman for counseling. Deconditioning: She has resumed water therapy. Patient does not participate in physical therapy dueto insurance issues. Sleep disturbance: Patient has agreed to proceed with a sleep study. Obesity: Patient will follow up with [facility]. Diabetes: NIDDM Diet controlled Current analgesics: ice and heat in the areas of her chronic pain, SalonPas, baclofen, Tramadol, Zipsor, Lidocaine Patches and Tylenol without side effects. I have reviewed GENE #[id number], is consistent with medication reconciliation. Review of diagnostic studies UDS on 03/07/2016, [...] Review of Systems Constitutional: Positive for fatigue. HENT: Positive for postnasal drip. Psychiatric/Behavioral: The patient is nervous/anxious. All other systems reviewed and are negative. Visit Vitals ??? BP 150/93 (BP Location: Left arm, Patient Position: Sitting) ??? Pulse 111 ??? Temp 96.8 ??F (36 ??C) (Temporal Artery ) ??? Resp 18 ??? Ht 62 (157.5 cm) ??? Wt 188 lb (85.3 kg) ??? SpO2 97% ??? BMI 34.39 kg/m2 Physical Exam Neurologic [...] her stimulator device for a total of 156 hours since last reprogramming, and 8948 lifetime hours (24 hours per day). Analysis of impedance reveals normal impedance for all contacts. Spinal cord stimulator device was reprogrammed under my supervision by adjusting electrode polarities, pulse width, pulse rate, amplitudes, BurstDR, by recreating one program, as follows; Program ONE Electrode polarities: 1+, 2-, 4+, 6- Amplitude: 1.15 to 1.5 mA Pulse width: 1000 mcs [...] obesity 9. Obesity with sleep apnea 10. Insomnia, unspecified type 11. Generalized anxiety disorder 12. Other depression 13. Physical deconditioning PLAN: Patient's chronic pain condition continues to improve with adjustments of her spinal cord stimulator device. We will continue current management and any additional workup, referrals, and treatments as outlined in the following plan: 1. Follow-up in eight weeks to assess response to new spinal cord stimulator program. If patient continues to struggle with pain, then, we may proceed with diagnostic and therapeutic right L4-L5 and left L5-S1 transforaminal epidural steroid injection. We may repeat another epidural depending on patient???s outcome. 2. Long-term rehabilitation efforts: a. Resume comprehensive physical therapy program b. Continue water therapy c. Follow-up at [facility] d. Follow-up with Dr. [...] day as needed muscle spasms f. Continue Pristiq, as prescribed by Dr. Burks g. Tramadol 50 mg twice a day as [...] Future Appointments Date Time Provider Department Center 07/13/2016 11:45 AM MD LILIANA Barillas [facility] None 08/03/2016 10:30 AM MD LILIANA [facility] None Bebeto Adams MD ? documented in this encounter Plan of Treatment Upcoming Encounters Date Type Department Care Team (Late st Contact Info) Description 03/13/2024 2:45 PM EST Office Visit [facility] C[facility] [address] [place] [address] [place] [address] Pj Ace MD [address] [facility] [phone] documented as of this encounter Procedures Procedure Name Priority Date/Time Associated Diagnosis Comments SCANNED - TELEMETRY 05/16/2016 documented in this encounter Results * SCANNED - TELEMETRY (05/16/2016) Anatomical Region Laterality Modality Other us Bebeto [...] headaches Moderate obesity Obesity with sleep apnea Insomnia, unspecified type Generalized anxiety disorder Other depression Physical deconditioning Muscular wasting and disuse atrophy, not elsewhere classified documented in this encounter Care Teams Curbing Stonecutter Relationship Specialty Start Date End Date Deepak Cortez MD PCP - General 12/31/14 12/12/16 documented as of this encounter
--- OUTSIDE RECORDS SUMMARY | 2024-02-20 09:16 | XMS_ITS | Encounter Summary ---
[facility] Address [address] [place] [address] Care Team Providers Care Allergist Name Role Phone Deepak Cortez MD Primary Care Provider Unav ailable Encounter Details Date Type Department Care Team (Late st Contact Info) Description 12/29/2015 Telephone [facility] INTERNAL MEDICINE [address] [place] [address] Jil Earl MA Social History Tobacco [...] Telephone Encounter - Jil Earl MA - 12/29/2015 4:31 PM EDT 12/29/15 Revised Rx has been sent over to the pharmacy. Pt was notified. * Telephone Encounter - Jil Earl MA - 12/29/2015 4:27 PM EDT ----- Message from Kelly Lemus sent at 12/29/2015 11:22 AM EDT ----- THE PATIENT IS CALLING ABOUT HER doxazosin (CARDURA) 2 MG tablet RX. IT NEEDS TO BE CALLED IN A 3 MONTH SUPPLY. SHE TAKES 1 2 PILLS A DAY AND IT WAS SENT TO [facility] FOR 90 PILLS. SHE CAN BE REACHED AT [phone]. documented in this encounter Plan of Treatment Upcoming Encounters Date Type Department Care Team (Late st Contact Info) Description 03/13/2024 2:45 PM EST Office Visit [facility] CARDIOLOGY [address] [place] [address] [place] [address] Pj Ace MD [address] [facility] [address] [place] [address] documented as of this encounter Visit Diagnoses Not on filedocumented in this encounter Care Teams Allergist Relationship Specialty Start Date End Date Deepak Cortez MD PCP - General 12/31/14 12/12/16 documented as of this encounter
--- OUTSIDE RECORDS SUMMARY | 2024-02-20 09:16 | XMS_ITS | Encounter Summary ---
[facility] Address [address] [place] [address] Care Team Providers Care Customer Project Manager Name Role Phone Deepak Cortez MD Primary Care Provider Unav ailable Encounter Details Date Type Department Care Team (Late Contact Info) Description 05/12/2016 Telephone [facility] INTERNAL MEDICINE [address] [place] [address] Christie Cox MA Social History Tobacco Use Types Packs/Day [...] Telephone Encounter - Christie Cox MA - 05/12/2016 9:22 AM EST Received call form Naya with [facility] pharmacy requesting a 90 day supply sent in for Starlix 120 MCG and Linaclotide 145 MCG, sent in a 90 day supply electronically pt is within protocol. documented in this encounter Plan of Treatment Upcoming Encounters Date Type Department Care Team (Late st Contact Info) Description 03/13/2024 2:45 PM EST Office Visit [facility] CARDIOLOGY [address] [place] [address] Pj Ace MD [address] [place] [address] documented as of this encounter Visit Diagnoses Diagnosis Chronic idiopathic constipation Unspecified constipation Type 2 diabetes mellitus without complication, without long-term current use of insulin documented in this encounter Care Teams Customer Project Manager Relationship Specialty Start Date End Date Deepak Cortez MD PCP - General 12/31/14 12/12/16 documented as of this encounter
--- OUTSIDE RECORDS SUMMARY | 2024-02-20 09:16 | XMS_ITS | Encounter Summary ---
[facility] Address [address] [place] [address] Care Team Providers Care Air Defense Specialist Name Role Phone Deepak Cortez MD Primary Care Provider Unav ailable Reason for Visit * Reason Comments Med Refill Encounter Details Date Type Department Care Team (Late st Contact Info) Description 12/25/2015 Refill [facility] INTERNAL MEDICINE [address] [place] [address] Deepak Cortez MD Social History [...] HEALTH CARDIOLOGY [address] [place] [address] Pj Ace MD [address] [facility] [address] [place], [place] [id number] documented as of this encounter Visit Diagnoses Not on filedocumented in this encounter Care Teams Air Defense Specialist Relationship Specialty Start Date End Date Deepak Cortez MD PCP - General 12/31/14 12/12/16 documented as of this encounter
--- OUTSIDE RECORDS SUMMARY | 2024-02-20 09:16 | XMS_ITS | Encounter Summary ---
[facility] Address [address] [place] [address] Care Team Providers Care Detective Homicide Squad Name Role Phone Deepak Cortez MD Primary Care Provider Unav ailable Reason for Visit * Reason Comments Follow-up Diabetes, Hyperlipid emia Encounter Details Date Type Department Care Team (Late st Contact Info) Description 11/02/2015 10:30 AM EDT Office Visit [facility] INTERNAL MEDICINE [address] [place] [address] Deepak Cortez MD Type 2 diabetes mellitus without complication (Primary Dx); Hyperlipemia Social History Tobacco Use Types Packs/Day Years [...] Sign Reading Time Taken Comments Blood Pressure 142/74 11/02/2015 11:09 AM EDT Pulse 80 11/02/2015 11:09 AM EDT Temperature - - Respiratory Rate - - Oxygen Saturation - - Inhaled Oxygen Concentration - - Weight 83.5 kg (184 lb) 11/02/2015 11:09 AM EDT Height 157.5 cm (5' 2 ) 11/02/2015 11:09 AM EDT Body Mass Index 33.65 11/02/2015 11:09 AM EDT documented in this encounter Progress Notes * Deepak Cortez MD - 11/02/2015 11:38 AM EDT Subjective Gertrudis Gonzalez is a 59 y.o. female. HPI Comments: She has been having a hard time following her diet because her mother is sick and [id number] just . Her blood sugar has increased some as result. The following portions of the patient's history were reviewed and updated as appropriate: allergies, current medications, past family history, past medical history, past social history, past surgicalhistory and problem list. Review of Systems Constitutional: Negative for appetite change and chills. HENT: Negative for drooling and ear discharge. Respiratory: Negative for cough and choking. Gastrointestinal: Negative for anal bleeding and blood in stool. Genitourinary: Negative for dysuria, enuresis and urgency. Musculoskeletal: Negative for gait problem and joint swelling. Skin: Negative for pallor and rash. Neurological: Negative for light-headedness and numbness. Objective Blood pressure 142/74, pulse 80, height 62 (157.5 cm), weight 184 lb (83.5 kg). Physical Exam Constitutional: She is oriented to person, place, and time. She appears well- developed and well-nourished. HENT: Head: Normocephalic and atraumatic. Eyes: EOM are normal. Pupils are equal, round, and reactive to light. Neck: Normal range of motion. Neck supple. Cardiovascular: Normal rate, regular rhythm, normal heart sounds and intact distal pulses. Pulmonary/Chest: Effort normal and breath sounds normal. Abdominal: Soft. Bowel sounds are normal. Musculoskeletal: Normal range of motion. Neurological: She is alert and oriented to person, place, and time. Skin: Skin is warm and dry. Psychiatric: She has a normal mood and affect. Assessment/Plan Gertrudis was seen today for follow-up. Diagnoses and all orders for this visit: Type 2 diabetes mellitus without complication Orders: - POCT glycosylated hemoglobin (Hb A1C) - POCT Glucose - Canagliflozin (INVOKANA) 100 MG tablet; Take 1 tablet by mouth daily. - Comprehensive metabolic panel; Future - Hemoglobin A1c; Future Hyperlipemia Orders: - Lipid panel; Future Results for orders placed or performed in visit on 11/02/15 POCT glycosylated hemoglobin (Hb A1C) Result Value Ref Range Hemoglobin A1C 7.2 % POCT Glucose Result Value Ref Range Glucose 117 70 - 130 mg/dL documented in this encounter Plan of Treatment Upcoming Encounters Date Type Department Care Team (Late st Contact Info) Description 03/13/2024 2:45 PM EST Office Visit [facility] CARDIOLOGY [address] [place] [address] [place] [address] Pj Ace MD [address] [facility] [address] [place] [address] documented as of this encounter Procedures Procedure Name Priority Date/Time Associated Diagnosis Comments POCT GLYCOSYLATED HEMOGLOBIN (HGB A1C) Routine 11/02/2015 11:28 AM EDT Type 2 diabetes mellitus without complication POCT GLUCOSE FINGERSTICK Routine 11/02/2015 11:28 AM EDT Type 2 diabetes mellitus without complication documented in this encounter Results * POCT Glucose (11/02/2015 11:28 AM EDT) Glucose 117 70 - 130 mg/dL [facility] Blood 11/02/2015 11:2 8 AM EDT Deepak Cortez MD POINT OF CARE TEST ORDERABL ES Final Result Performing Organization Address City/[facility]/ZIP Co de Phone Number [facility]
[address] [place] [address], * POCT glycosylated hemoglobin (Hb A1C) (11/02/2015 11:28 AM EDT) Hemoglobin A1C 7.2 % [facility] Blood 11/02/2015 11:2 8 AM EDT us Deepak Cortez MD POINT OF CARE TEST ORDERABL ES Final Result Performing Organization Address City/[facility]/ZIP Co de Phone Number [facility]
[address] [phone] documented in this encounter Visit Diagnoses Diagnosis Type 2 diabetes mellitus without complication- Primary Hyperlipemia Other and unspecified hyperlipidemia documented in this encounter Care Teams Detective Homicide Squad Relationship Specialty Start Date End Date Deepak Cortez MD PCP - General 12/31/14 12/12/16 documented as of this encounter
--- OUTSIDE RECORDS SUMMARY | 2024-02-20 09:16 | XMS_ITS | Encounter Summary ---
[facility] Address [address] [place] [address] Care Team Providers Care Registered Private Duty Nurse Name Role Phone Deepak Cortez MD Primary Care Provider Unav ailable Reason for Visit * Health Education (Routine) - Closed Specialty Diagnoses / Procedures Referred By Yodit salinas Referred To Contact Nutrition Diagnoses Moderate obesity Bebeto Adams MD [address] [place] [address] Phone: tel: fax: [facility] [address] [facility] [address] [place] [address] Phone: tel: fax: Referral ID Status Reason Start Date Expiration Date V isits Requested Visits Authorized [id number] Closed Specialty Services Required 03/07/2016 03/07/2017 1 1 Encounter Details Date Type Department Care Team (Late st Contact Info) Description 04/04/2016 2:45 PM EST Office Visit [facility] [address] [facility] [address] [place] [address] Bebeto Adams MD [address] [place] [address] Kandy Laureano, RD Social History Tobacco Use Types Packs/Day Years [...] - Inhaled Oxygen Concentration - - Weight 85.3 kg (188 lb) 04/04/2016 3:56 PM EST Height 157.5 cm (5' 2 ) 04/04/2016 3:56 PM EST Body Mass Index 34.39 04/04/2016 3:56 PM EST documented in this encounter Progress Notes * Kandy Laureano, RD - 04/04/2016 2:45 PM EST Adult Outpatient Nutrition Assessment/PES Patient Name: Gertrudis Gonzalez Date of : 1955 Assessment Date: 04/04/2016 General Info 04/04/16 1555 Today's Session Person(s) attending today's session Patient Application Technical Designer Services Used Today? No General Information How well do you speak Djiboutian? very well Do you speak a language other than [place]iboutian at home? no Are you able to read and write Djiboutian? Yes Lives With spouse Is patient ? no Physical Findings 04/04/16 1556 Physical Findings/Assessment Additional Documentation Physical Appearance (Group) Physical Appearance Overall Physical Appearance obese Nutritional Info/Activity 04/04/16 1556 Nutritional Information Have you had weight changes? Yes Describe weight changes States that her weight has increased to 194 lbs. Have you tried to lose weight before? Yes List programs tried, date, and success smaller portions Do you have difficulty chewing food? No Who Prepares Meals self How often during the day do you find yourself snacking? fruit at night How often do you eat out and where? couple times per week; fast food What is the biggest challenge you have with your diet? Portions;Eating out;Poor choices;Food preperation Enter everything you can remember eating in the last 24 hours (1 day) Breakfast: cereal with milk; Lunch: 6 inch cold cut Subway sandwich, water, Dairy Kay bengali fries; Snack: grapes, 2 tangerines; Dinner: 6 inch cold cut Subway [place], Diet [place] Eating Environment Eating environment Family Physical Activity Are you currently involved in an activity/exercise program? No Reasons for Inactivity Other (comment) pain How would you rank exercise as an important health lifestyle practice? 9 Estimated/Assessed Needs 04/04/16 1559 Calculation Measurements Weight Used For Calculations 88 kg (194 lb) Height Used for Calculations 1.575 m (5' 2 ) Estimated/Assessed Energy Needs Energy Need Method Holland-St Jeor Age 60 RMR (Holland-St. Jeor Equation) 1408.23 Activity Factors (Holland St Jeor) Confined to bed 1.2 Total estimated needs (Holland St. Jeor) 1408 x 1.2 = 1689 - 500 = 1189 kcalories/day Estimated Kcal Range 1200 kcalories Problem/Interventions: Problem 1 04/04/16 1601 Nutrition Diagnoses Problem 1 Problem 1 Overweight/Obesity Etiology (related to) -- excessive kcalorie intake Signs/Symptoms (evidenced by) BMI BMI 30 - 34.9 Intervention Goal 04/04/16 1602 Intervention Goal General Provide information regarding MNT for treatment/condition ongoing weight loss follow up PO Meet estimated needs 1200 kcalories/day Weight Appropriate weight loss Comments: Patient present for ongoing weight loss follow up and reassessment. Attended initial weight loss session in June 2015. States that she has gained weight since her last nutrition appointment and was up to 194 lbs. States that she has not been able to exercise on a regular basis except forphysical therapy and stretching. She states that her portion sizes continue to be under control, however, she continues to skip breakfast on a regular basis. Discussed tracking kcalories especially when eating at restaurants. Per 24 hour recall, that patient is consuming about 1285-7824 kcalories per day. Patient only needs 1200 kcalories per day to lose weight. Demonstrated how to read labels aswell as keeping a food diary. Patient downloaded [employer] mark during session and able to retrieve restaurant kcalorie information. Updated goals: -Eat breakfast daily (apple with peanut butter). -Add more vegetables. -Track kcalories using a food journal. Aim for 1200 kcalories/day. -Lose 0.5-1.0# of body weight per week. Scheduled a continued follow up for 05-08-2016 at 12:[address] contact information given if needed. Thank you again for this referral. Electronically signed by: Kandy Laureano RD 04/04/16 4:04 PM documented in this encounter Plan of Treatment Upcoming Encounters Date Type Department Care Team (Late st Contact Info) Description 03/13/2024 2:45 PM EST Office Visit [facility] CARDIOLOGY [address] [place] [address] Pj Ace MD [address] [facility] [address] [place], [place] [id number] Scheduled Referrals Name Type Priority Associated Diagnoses Order Schedule Ambulatory Referral to Nutrition Services Outpatient Referral Routine Moderate obesity Ordered: 03/07/2016 documented as of this encounter Visit Diagnoses Not on filedocumented in this encounter Care Teams Registered Private Duty Nurse Relationship Specialty Start Date End Date Deepak Cortez MD PCP - General 12/31/14 12/12/16 documented as of this encounter
--- OUTSIDE RECORDS SUMMARY | 2024-02-20 09:16 | XMS_ITS | Encounter Summary ---
[facility] Address [address] [place] [id number] Care Team Providers Care Workflow Developer Name Role Phone Deepak Cortez MD Primary Care Provider Unav ailable Reason for Visit * Reason Onset Date Comments Med Refill 04/24/2016 Encounter Details Date Type Department Care Team (Late st Contact Info) Description 04/24/2016 Refill [facility] INTERNAL MEDICINE [address] [place] [address] Deepak Cortez MD Social History [...] CENTER CARDIOLOGY [address] [place] [address] [place] [address] Pj Ace MD [facility] [address] [address] documented as of this encounter Visit Diagnoses Not on filedocumented in this encounter Care Teams Workflow Developer Relationship Specialty Start Date End Date Deepak Cortez MD PCP - General 12/31/14 12/12/16 documented as of this encounter
--- OUTSIDE RECORDS SUMMARY | 2024-02-20 09:16 | XMS_ITS | Encounter Summary ---
[facility] Organization [facility] Address [address] [place] [address] Care Team Providers Care Stars Specialist Name Role Phone Deepak Cortez MD Primary Care Provider Unav ailable Reason for Visit * Reason Comments Diabetes Hyperlipidemia Encounter Details Date Type Department Care Team ([facility] st Contact Info) Description 02/02/2016 10:30 AM EDT Office Visit [facility] INTERNAL MEDICINE [address] [place] [address] Deepak Cortez MD Type 2 diabetes mellitus without complication, without long-term current use of insulin (Primary Dx); Benign essential hypertension; Frequency of urination Social History Tobacco Use Types Packs/Day Years [...] Sign Reading Time Taken Comments Blood Pressure 134/88 02/02/2016 10:54 AM EDT Pulse 88 02/02/2016 10:54 AM EDT Temperature - - Respiratory Rate - - Oxygen Saturation 97% 02/02/2016 10:54 AM EDT Inhaled Oxygen Concentration - - Weight 85.7 kg (189 lb) 02/02/2016 10:54 AM EDT Height 157.5 cm (5' 2 ) 02/02/2016 10:54 AM EDT Body Mass Index 34.57 02/02/2016 10:54 AM EDT documented in this encounter Progress Notes * Deepak Cortez MD - 02/02/2016 11:01 AM EDT Subjective Gertrudis Gonzalez is a 60 y.o. female. HPI Comments: She had to stop invokana because it cause excessive sweating but her blood sugar was good on it. She was put on Januvia which is helping but is more expensive. She is having back trouble but she is working with Dr. Adams. The following portions of the patient's history were reviewed and updated as appropriate: allergies, current medications, past family history, past medical history, past social history, past surgicalhistory and problem list. Review of Systems HENT: Negative for ear pain and facial swelling. Respiratory: Negative for cough and choking. Cardiovascular: Negative for chest pain and leg swelling. Genitourinary: Positive for frequency. Negative for genital sores and hematuria. Musculoskeletal: Positive for back pain. Neurological: Negative for light-headedness and numbness. Psychiatric/Behavioral: Positive for decreased concentration. Negative for confusion and dysphoric mood. Objective Blood pressure 134/88, pulse 88, height 62 (157.5 cm), weight 189 lb (85.7 kg), SpO2 97 %. Physical Exam Constitutional: She is oriented to [...] normal. Abdominal: Soft. Bowel sounds are normal. Neurological: She is alert and oriented to person, place, and time. Skin: Skin is warm and dry. Psychiatric: She has a normal mood and affect. Her behavior is normal. Judgment and thought contentnormal. Assessment/Plan Gertrudis was seen today for diabetes and hyperlipidemia. Diagnoses and all orders for this visit: Type 2 diabetes mellitus without complication, without long-term current use of insulin - POC Glycosylated Hemoglobin (Hb A1C) - POC Glucose Fingerstick - Dapagliflozin Propanediol (FARXIGA) 10 MG tablet; Take 10 mg by mouth Daily. - POC Microalbumin Benign essential hypertension Frequency of urination - POC Urinalysis Dipstick, Automated Results for orders placed or performed in visit on 02/02/16 POC Glycosylated Hemoglobin (Hb A1C) Result Value Ref Range Hemoglobin A1C 6.9 % POC Glucose Fingerstick Result Value Ref Range Glucose 150 (A) 70 - 130 mg/dL documented in this encounter Plan of Treatment Upcoming Encounters Date Type Department Care Team (Late st Contact Info) Description 03/13/2024 2:45 PM EST Office Visit [facility] CARDIOLOGY [address] [place] [address] [place] [address] Pj Ace MD [address] [facility] [address] [place] [address] documented as of this encounter Procedures Procedure Name Priority Date/Time Associated Diagnosis Comments POCT URINALYSIS DIPSTICK, AUTOMATED Routine 02/02/2016 1:19 PM EDT Frequency of urination POCT MICROALBUMIN Routine 02/02/2016 1:1 9 PM EDT Type 2 diabetes mellitus without complication, without long-term current use of insulin POCT GLYCOSYLATED HEMOGLOBIN (HGB A1C) Routine 02/02/2016 11:12 AM EDT Type 2 diabetes mellitus without complication, without long-term current use of insulin POCT GLUCOSE FINGERSTICK Routine 02/02/2016 11:12 AM EDT Type 2 diabetes mellitus without complication, without long-term current use of insulin documented in this encounter Results * POC Microalbumin (02/02/2016 1:19 PM EDT) Microalbumin, Urine 10 [facility] Creatinine, Urine 300 [facility] Urine 02/02/2016 1:19 PM EDT us Deepak Cortez MD POINT OF CARE TEST ORDERABL ES Final Result [facility]
[address] [place] [address], [place] [phone] * POC Urinalysis Dipstick, Automated (02/02/2016 1:19 PM EDT) Color Yellow Yellow, Straw, Dark Yellow, [place] [facility] Clarity, UA Clear Clear [facility] Glucose, UA Negative Negative mg/dL [facility] Bilirubin Negative Negative [facility] Ketones, UA Negative Negative [facility] Specific [place] 1.015 1.005 - 1.030 [facility] Blood, UA Negative Negative [facility] pH, Urine 8.0 5.0 - 8.0 [facility] Protein, POC Negative Negative mg/dL [facility] Urobilinogen, UA Normal Normal [facility] Leukocytes Negative Negative [facility] Nitrite, UA Negative Negative [facility] Urine 02/02/2016 1:19 PM EDT us Deepak Cortez MD POINT OF CARE TEST ORDERABL ES Final Result Performing Organization Address [facility] de Phone Number [facility]
[address] [place] [address], [place] [phone] * (ABNORMAL) POC Glucose Fingerstick (02/02/2016 11:12 AM EDT) Glucose 150(A) 70 - 130 mg/dL [facility] Blood 02/02/2016 11:1 2 AM EDT us Deepak Cortez MD POINT OF CARE TEST ORDERABL ES Final Result Performing Organization Address [facility] Co de Phone Number [facility]
[address] [place] [address], [place] [phone] * POC Glycosylated Hemoglobin (Hb A1C) (02/02/2016 11:12 AM EDT) Hemoglobin A1C 6.9 % [facility] Blood 02/02/2016 11:1 2 AM EDT Deepak Cortez MD POINT OF CARE TEST ORDERABL ES Final Result [facility]
[address] [place] [address], documented in this encounter Visit Diagnoses Diagnosis Type 2 diabetes mellitus without complication, without long-term current use of insulin- Primary Benign essential hypertension Essential hypertension, benign Frequency of urination Urinary frequency documented in this encounter Care Teams Stars Specialist Relationship Specialty Start Date End Date Deepak Cortez MD PCP - General 12/31/14 12/12/16 documented as of this encounter
--- OUTSIDE RECORDS SUMMARY | 2024-02-20 09:16 | XMS_ITS | Encounter Summary ---
[facility] Address [address] [place] [address] Care Team Providers Care Dielectric Machine Operator Name Role Phone Deepak Cortez MD Primary Care Provider Unav ailable Reason for Visit * Reason Comments Med Refill Encounter Details Date Type Department Care Team (Late st Contact Info) Description 11/17/2015 Refill [facility] PAIN MANAGEMENT [address] [facility] [address] [place] [id number] Bebeto Adams MD [address] [facility] [address] [place] [address] Social History Tobacco Use Types Packs/Day Years [...] [facility] CARDIOLOGY [address] [place] [address] [address] [place] [address] Pj Ace MD [address] [facility] [address] [place] [address] documented as of this encounter Visit Diagnoses Not on filedocumented in this encounter Care Teams Dielectric Machine Operator Relationship Specialty Start Date End Date Deepak Cortez MD PCP - General 12/31/14 12/12/16 documented as of this encounter
--- OUTSIDE RECORDS SUMMARY | 2024-02-20 09:16 | XMS_ITS | Encounter Summary ---
[facility] Address [address] [place] [phone] Care Team Providers Care Dry Paste Supervisor Name Role Phone Deepak Cortez MD Primary Care Provider Unav ailable Reason for Visit * Reason Onset Date Comments Med Refill 05/11/2016 Encounter Details Date Type Department Care Team (Late st Contact Info) Description 05/11/2016 Refill [facility] [address] [facility] [address] [place] [address] Deepak Cortez MD Type 2 diabetes mellitus without complication, without long-term current use of insulin; Vaginal atrophy Social History Tobacco Use Types [...] PM EST Office Visit [facility] C[facility] [address] [place] [address] Pj Ace MD [address] [facility] [address] [place], [place] [id number] documented as of this encounter Visit Diagnoses Diagnosis Type 2 diabetes mellitus without complication, without long-term current use of insulin Vaginal atrophy Postmenopausal atrophic vaginitis documented in this encounter Care Teams Dry Paste Supervisor Relationship Specialty Start Date End Date Deepak Cortez MD PCP - General 12/31/14 12/12/16 documented as of this encounter
--- OUTSIDE RECORDS SUMMARY | 2024-02-20 09:16 | XMS_ITS | Encounter Summary ---
[facility] Address [address] [place] [address] Care Team Providers Care Piping Supervisor Name Role Phone Deepak Cortez MD Primary Care Provider Unav ailable Reason for Visit * Reason Onset Date Comments Med Refill 10/15/2015 Encounter Details Date Type Department Care Team (Late Contact Info) Description 10/15/2015 Telephone [facility] INTERNAL MEDICINE [address] [place] [address] Deepak Cortez MD Med Refill Social History Tobacco Use Types [...] encounter Miscellaneous Notes * Telephone Encounter - Francis Jaimes LPN - 10/29/2015 2:44 PM EDT This is a duplicate message. documented in this encounter Plan of Treatment Upcoming Encounters Date Type Department Care Team (Late Contact Info) Description 03/13/2024 2:45 PM EST Office Visit [facility] CARDIOLOGY [address] [facility] [place] [place] [address] Pj Ace MD [address] [facility] [address] [place] [address] documented as of this encounter Visit Diagnoses Not on filedocumented in this encounter Care Teams Piping Supervisor Relationship Specialty Start Date End Date Deepak Cortez MD PCP - General 12/31/14 12/12/16 documented as of this encounter
--- OUTSIDE RECORDS SUMMARY | 2024-02-20 09:16 | XMS_ITS | Encounter Summary ---
[facility] [address] [place] [phone] Care Team Providers Care Front End Developer Name Role Phone Deepak Cortez MD Primary Care Provider Unav ailable Reason for Visit * Reason Onset Date Comments Intake 02/01/2016 Encounter Details Date Type Department Care Team (Late st Contact Info) Description 02/01/2016 Telephone [facility] PAIN [facility]EMENT [address] [facility] [address] [place] [address] Maddison Kraus, counter tacker Social History Tobacco Use Types Packs/Day Years [...] encounter Miscellaneous Notes * Telephone Encounter - Maddison Kraus RN - 02/01/2016 2:28 PM EDT [facility] #[id number] No new diagnostic studies X-rays of the sacroiliac joints from 07/20/2015 [...] from 07/20/2015 revealed lumbosacral and SI arthropathy. documented in this encounter Plan of Treatment Upcoming Encounters Date Type Department Care Team (Late st Contact Info) Description 03/13/2024 2:45 PM EST Office Visit [facility] CARDIOLOGY [address] [facility] [place] [address] [place] [address] Pj Ace MD [address] [facility] [address] [facility] [address] [place] [address] documented as of this encounter Visit Diagnoses Not on filedocumented in this encounter Care Teams Front End Developer Relationship Specialty Start Date End Date Deepak Cortez MD PCP - General 12/31/14 12/12/16 documented as of this encounter
--- OUTSIDE RECORDS SUMMARY | 2024-02-20 09:16 | XMS_ITS | Encounter Summary ---
[facility] [address] [place] [address] Care Team Providers Care Algebra Teacher Name Role Phone Deepak Cortez MD Primary Care Provider Unav ailable Reason for Visit * Reason Comments Follow-up SCS Encounter Details Date Type Department Care Team (Late st Contact Info) Description 07/18/2016 1:30 PM EDT Office Visit [facility] PAIN MANAGEMENT [address] [address] Bebeto Adams MD [address] [address] Postlaminectomy syndrome of lumbar region; Meningeal adhesions/lumbar arachnoiditis; Lumbar facet arthropathy/lumbar spondylosis without myelopathy; Herniated lumbar intervertebral disc; Sacroiliac joint dysfunction of left side; Myofascial pain syndrome; History of migraine headaches; Moderate obesity; Obesity with sleep apnea; Benign essential hypertension; Diabetes mellitus type 2 in obese; Insomnia, unspecified type; Anxiety and depression; Physical [...] Sign Reading Time Taken Comments Blood Pressure 161/95 07/18/2016 1:26 PM EDT Pulse 113 07/18/2016 1:26 PM EDT Temperature 36 ??C (96.8 ??F) 07/18/2016 1:26 PM EDT Respiratory Rate 18 07/18/2016 1:26 PM EDT Oxygen Saturation 96% 07/18/2016 1:26 PM EDT Inhaled Oxygen Concentration - - Weight 84.8 kg (187 lb) 07/18/2016 1:26 PM EDT Height 157.5 cm (5' 2 ) 07/18/2016 1:26 PM EDT Body Mass Index 34.2 07/18/2016 1:26 PM EDT documented in this encounter Progress Notes * Bebeto Adams MD - 07/18/2016 1:30 PM EDT Chief Complain: I did very well after the last reprogramming with my SCS. I started having pain inmy legs two weeks ago and swelling in my ankles. ? Brief History: Ms. Gonzalez returns to [...] vertebral body. IPG: Prot??g?? Pain level: 4/10 Pain level ranges from 1/10 to 8/10 with the spinal cord stimulator on with certain activities and during the night. Pain location: both legs from knees down. Quality of pain: Throbbing and burning Radiation of pain: There is some gluteal pain that radiates down to the posterior aspect of her thigh, the calves and into the plantar aspect of her feet. Current analgesics: ice and heat in the areas of her chronic pain, SalonPas, baclofen, tramadol, diclofenac, Lidocaine Patches and Tylenol without side effects. I have reviewed [facility] #[id number], is consistent with medication reconciliation. Comorbid factors: Depression and anxiety: Patient continues struggling with depression and anxiety. She continues under the care of Dr. Burks. Patient continues on Pristiq, Geodon, trazodone, Seroquel. She continues CBT with Yoanna Osman. Physical deconditioning and noncompliance: She has not resumed water therapy or physical therapy Sleep disturbance: Patient has been scheduled for a sleep study 07/29/2016. Obesity: Patient will follow up with [facility]. Diabetes: NIDDM, not controlled. No meds. No compliance. Diagnostic studies UDS on 03/07/2016, appropriate X-rays [...] other systems reviewed and are negative. BP 161/95 (BP Location: Left arm, Patient Position: Sitting) Pulse 113 Temp 96.8 ??F (36 ??C) (Temporal Artery ) Resp 18 Ht 62 (157.5 cm) Wt 187 lb (84.8 kg) SpO2 96% BMI 34.2 kg/m2 Physical Exam Neurologic Exam [...] her stimulator device for a total of 433 hours since last reprogramming, and 9430 lifetime hours (24 hours per day). Analysis of impedance reveals normal impedance for all contacts. The spinal cord stimulator device wasreprogrammed under my supervision by adjusting electrode polarities, pulse width, pulse rate, amplitudes, BurstDR, by recreating two programs and adding two new programs for a total of four, as follows; Program FOUR (best program) Electrode polarities: 1+, 2-, 5-, 6- Amplitude: 1.2-2 mA Pulse width: 1000 mcs Pulse Rate: [...] in obese 12. Insomnia, unspecified type 13. Anxiety and depression 14. Physical deconditioning PLAN: Patient's chronic pain condition continues to improve with adjustments of her spinal cord stimulator device. Patient continues to struggle with anxiety, depression and insomnia. Continue current management and any additional workup, referrals, and treatments as outlined in the following plan: 1. Follow-up in twenty weeks to assess response to new spinal cord stimulator programs. If patient continues to struggle with pain, then, we may proceed with diagnostic and therapeutic bilateral L5-S1 transforaminal epidural steroid injection. 2. Long-term rehabilitation efforts: a. Resume comprehensive physical therapy program b. Resume water therapy c. Follow-up at [facility] d. Follow-up with Dr. [...] hand a copy of this document. 5. Diagnostics: Random UDS 6. The patient has been instructed to [...] Future Appointments Date Time Provider Department Center 07/27/2016 1:30 PM MD LILIANA Huerta [facility] None 08/03/2016 10:30 AM MD LILIANA Spaulding [facility] None Bebeto Adams MD ? documented in this encounter Plan of Treatment Upcoming Encounters Date Type Department Care Team (Late st Contact Info) Description 03/13/2024 2:45 PM EST Office Visit [facility] CARDIOLOGY [address] [place] [address] [place] [address] Pj Ace MD [address] [facility] [address] [place] [address] documented as of this encounter Procedures Procedure Name Priority Date/Time Associated Diagnosis Comments SCANNED - TELEMETRY 07/18/2016 documented in this encounter Results * SCANNED - TELEMETRY (07/18/2016) Anatomical Region Laterality Modality Other Bebeto Adams MD ECG ORDERABLES Final Result [...] not stated as uncontrolled Insomnia, unspecified type Anxiety and depression Physical deconditioning Muscular wasting and disuse atrophy, not elsewhere classified documented in this encounter Care Teams Algebra Teacher Relationship Specialty Start Date End Date Deepak Cortez MD PCP - General 12/31/14 12/12/16 documented as of this encounter
--- OUTSIDE RECORDS SUMMARY | 2024-02-20 09:16 | XMS_ITS | Encounter Summary ---
[facility] Address [address] [place] [phone] Care Team Providers Care Engraver Name Role Phone Deepak Cortez MD Primary Care Provider Unav ailable Encounter Details Date Type Department Care Team (Late st Contact Info) Description 10/20/2015 Telephone [facility] INTERNAL MEDICINE [address] [place] [address] Deepak Cortez MD Social History [...] Telephone Encounter - Francis Jaimes LPN - 10/20/2015 11:36 AM EDT Med escribed per protocol. ----- Message from Medina Tejeda sent at 10/20/2015 10:48 AM EDT ----- Contact: Patient Dr. Cortez Patient called and states that [facility] says they cannot read the quantity or directions on Rx for doxazosin. Please call to correct [phone] ref [phone] Thanks. documented in this encounter Plan of Treatment Upcoming Encounters Date Type Department Care Team (Late st Contact Info) Description 03/13/2024 2:45 PM EST Office Visit [facility] CARDIOLOGY [address] [place] [address] Pj Ace MD [address] [facility] E [facility] [address] [place] [address] documented as of this encounter Visit Diagnoses Not on filedocumented in this encounter Care Teams Engraver Relationship Specialty Start Date End Date Deepak Cortez MD PCP - General 12/31/14 12/12/16 documented as of this encounter
--- OUTSIDE RECORDS SUMMARY | 2024-02-20 09:16 | XMS_ITS | Encounter Summary ---
[facility] [address] [place] [address] Care Team Providers Care Regional Environmental Manager Name Role Phone Deepak Cortez MD Primary Care Provider Unav ailable Encounter Details Date Type Department Care Team (Late st Contact Info) Description 10/14/2015 Telephone [facility] PAIN [facility] [address] [address] Alyson Burt, RN Social History Tobacco Use Types Packs/Day [...] encounter Miscellaneous Notes * Telephone Encounter - Alyson Burt RN - 10/14/2015 1:32 PM EDT Previous Diagnostic Studies: ORIF of the lumbar spine from August 2012 revealed lumbar facet hypertrophy from L2-L3 through L5-S1.L4-L5 moderate disc bulge lateralizes towards the right (without clinical correlation). Moderate right and mild left neuroforaminal stenosis. L5-S1 moderate left foraminal disc protrusion combined with facet hypertrophy creating moderate left neuroforaminal stenosis with no significant canal stenosis. X-ray of the pelvis on 01/06/2014, revealed mild sclerosis about the right sacroiliac joint. X-ray of the thoracic spine on 12/09/2013, revealed spinal cord stimulator electrodes positioned atT7. The thoracic spine otherwise demonstrates mild degenerative change without acute abnormality. X-rays of the sacroiliac joints from 07/20/2015 revealed lumbosacral and SI arthropathy. documented in this encounter Plan of Treatment Upcoming Encounters Date Type Department Care Team (Late st Contact Info) Description 03/13/2024 2:45 PM EST Office Visit [facility] CARDIOLOGY [address] [place] [address] Pj Ace MD [address] [facility] E [facility] [address] [place] [address] documented as of this encounter Visit Diagnoses Not on filedocumented in this encounter Care Teams Regional Environmental Manager Relationship Specialty Start Date End Date Deepak Cortez MD PCP - General 12/31/14 12/12/16 documented as of this encounter
--- OUTSIDE RECORDS SUMMARY | 2024-02-20 09:16 | XMS_ITS | Encounter Summary ---
Author Organization [facility] Address [address] [place] [phone] Care Team Providers Care Field Crop Farmer Name Role Phone Deepak Cortez MD Primary Care Provider Unav ailable Reason for Visit * Reason Onset Date Comments Intake 01/13/2016 Encounter Details Date Type Department Care Team (Late st Contact Info) Description 01/13/2016 Telephone [facility] PAIN [facility]NA[facility]EMENT [address] [facility] [address] [place] [address] Maddison Kraus, neonatal social worker Social History Tobacco Use Types Packs/Day Years [...] Miscellaneous Notes * Telephone Encounter - Maddison Kraus, RN - 01/13/2016 1:29 PM EDT [facility] #[id number], is consistent with medication reconciliation. X-rays of the sacroiliac joints from 07/20/2015 revealed lumbosacral and SI arthropathy. MRI of the lumbar spine from August 2012 revealed lumbar facet hypertrophy from L2-L3 through L5-S1. L4-L5 moderate disc bulge lateralizes towards the right [...] Visit [facility] CARDIOLOGY [address] [facility] [place] [address] Pj Ace MD [address] [facility] E [facility] [address] [place] [address] documented as of this encounter Visit Diagnoses Not on filedocumented in this encounter Care Teams Field Crop Farmer Relationship Specialty Start Date End Date Deepak Cortez MD PCP - General 12/31/14 12/12/16 documented as of this encounter
--- OUTSIDE RECORDS SUMMARY | 2024-02-20 09:16 | XMS_ITS | Encounter Summary ---
Author Organization [facility] Address [address] [place] [address] Care Team Providers Care Recreation Therapy Director Name Role Phone Deepak Cortez MD Primary Care Provider Unav ailable Reason for Visit * Reason Comments Back Pain Extremity Pain bilateral Encounter Details Date Type Department Care Team (Late st Contact Info) Description 01/13/2016 1:00 PM EDT Office Visit [facility] [address] [address] Bebeto Adams MD [address] [facility] [address] [place] [address] Postlaminectomy syndrome of lumbar region; Meningeal adhesions/lumbar arachnoiditis; Lumbar facet arthropathy/lumbar spondylosis without myelopathy; Sacroiliac joint dysfunction of left side; Obesity with sleep apnea; Moderate obesity; Insomnia, unspecified type; Generalized anxiety disorder; History of migraine headaches; Chronic pain syndrome; Myofascial pain syndrome; Physical deconditioning Social History Tobacco [...] Sign Reading Time Taken Comments Blood Pressure 136/76 01/13/2016 12:58 PM EDT Pulse 93 01/13/2016 12:58 PM EDT Temperature 36.1 ??C (97 ??F) 01/13/2016 12:58 PM EDT Respiratory Rate 18 01/13/2016 12:58 PM EDT Oxygen Saturation 95% 01/13/2016 12:58 PM EDT Inhaled Oxygen Concentration - - Weight 86.6 kg (191 lb) 01/13/2016 12:58 PM EDT Height 157.5 cm (5' 2 ) 01/13/2016 12:58 PM EDT Body Mass Index 34.93 01/13/2016 12:58 PM EDT documented in this encounter Progress Notes * Bebeto Adams MD - 01/13/2016 2:03 PM EDT Chief Complain: I have pain in my right leg now. The stimulator helps some. ?? Brief History: Ms. Gonzalez to clinic today for evaluation of her chronic pain possible reprogrammingof her [employer] spinal cord stimulator device. She reports about 3 weeks ago she woke up with pain across her low back and down bilateral posterior lower extremities groin and left leg through the foot to the 2nd and 3rd toes, the right side radiates to the heel. She reports currently the right is greater than the left side. She also reports bending over 10 days ago and her pain has been constantand unrelenting since this time. She reports that she feels paresthesia across her back, down bilateral lower extremities into the feet, although the pain overrides the stimulation. Patient's original pain was low back down the left lower extremity to the foot. She reports pain in her left buttock and hip rated as 4/10, her right side is 7/10. Patient reports that at times her stimulator controlsher pain, and expresses a pain level of 3-4/10, but it is not controlling it as well as previously.She feels better when she did water therapy, she has not resumed. She has been walking for 15 minutes every other day. She has declined further follow up after her sleep study. She was released by [facility]. She continues care with Dr. Burks (seen this morning), who continues her Pristiq and today he has written for Abilify, as per patient. She continues therapy with Yoanna Osman(seen 01/12/2016) for counseling. She uses ice and heat in the areas of her chronic pain. In terms of analgesics, she uses SalonPas, and Skelaxin, Tramadol, Zipsor, Lidocaine Patches and Tylenol without side effects. She is requesting to change muscle relaxers due to a strong family history of kidney disease. GENE #[id number], is consistent with medication reconciliation. ?? Diagnostic Studies: X-rays of the sacroiliac joints [...] social history, family history, medications, and allergies Review of Systems Constitutional: Positive for fatigue. HENT: Positive for hearing loss. Respiratory: Positive for shortness of breath. Gastrointestinal: Positive for constipation. Musculoskeletal: Positive for arthralgias and back pain. Neurological: Positive for dizziness, numbness and headaches. Psychiatric/Behavioral: Positive for agitation, confusion and sleep disturbance. The patient is nervous/anxious. All other systems reviewed and are negative. Visit Vitals ??? BP 136/76 (BP Location: Left arm, Patient Position: Sitting) ??? Pulse 93 ??? Temp 97 ??F (36.1 ??C) (Tympanic) ??? Resp 18 ??? Ht 62 (157.5 cm) ??? Wt 191 lb (86.6 kg) ??? SpO2 95% ??? BMI 34.93 kg/m2 Physical Exam Neurologic Exam Constitutional General [...] memory: Intact. Mood and affect: Normal. ?? PROCEDURE: Analysis of the spinal cord stimulator device with complex spinal cord stimulator reprogramming Analysis of the spinal cord stimulator device reveals that the patient has used her stimulator device for a total of 2246 hours since last reprogramming, and 6995 lifetime hours. Analysis of impedance reveals normal impedance for all contacts. Spinal cord stimulator device was reprogrammed under mysupervision by adjusting electrode polarities, pulse width, pulse rate, and amplitudes, by recreating one program, as follows; Program ONE Electrode polarities: 1+, 2-, 4+, 5-, 6+ Amplitude: 7 mA (0-25.5) Pulse width: 425 mcs Pulse Rate: 60 Hz Time spent reprogrammin minutes. A copy of the telemetry report will be scanned in the patient's chart ASSESSMENT: 1. Postlaminectomy syndrome of lumbar region 2. Meningeal adhesions/lumbar arachnoiditis 3. Lumbar facet arthropathy/lumbar spondylosis without myelopathy 4. Sacroiliac joint dysfunction of left side 5. Obesity with sleep apnea 6. Moderate obesity 7. Insomnia, unspecified type 8. Generalized anxiety disorder 9. History of migraine headaches 10. Chronic pain syndrome 11. Myofascial pain syndrome 12. Physical deconditioning ?? PLAN: Patient's chronic pain condition is significantly improved. Continue current management and any additional workup, referrals, and treatments as outlined in the following plan: 1. Follow-up in twelve weeks. If patient continues to struggle with pain, then, we will proceed with diagnostic/therapeutic right L4-L5 and left L5-S1 transforaminal epidural steroid injection. We may repeat another epidural depending on patient???s outcome. 2. Long-term rehabilitation efforts: a. Start comprehensive physical therapy program b. Start an independent exercise program based on water therapy c. Follow-up at [facility] d. Follow-up with Dr. Diogenes Neville for cognitive behavioral therapy and biofeedback e. Patient has declined follow-up with Dr. Lozano for her sleep apnea f. Follow-up with Dr. Burks for her unrelenting anxiety and insomnia g. The patient does not [...] not to take any other NSAIDs d. Wean tramadol 50 mg from 1 tablet twice a day as needed for severe breakthrough pain, then once a day for another week, then, discontinue tramadol e. Continue lidocaine patches f. Discontinue Skelaxin g. Trial with baclofen 10 mg 1/2 to 1 tablet 1-2 times a day as needed muscle spasms g. Continue Pristiq and Abilify as prescribed by Dr. Burks 4. Patient has completed a SOAPP questionnaire and ORT questionnaire (revealing low risk). Gene reports have been reviewed and appropriate. 5. The patient has been instructed to contact my office with any questions or difficulties. The patient understands the plan and agrees to proceed accordingly. Patient Care Team: Deepak Cortez MD as PCP - General Deepak Cortez MD as Referring Physician (Internal Medicine) Bebeto Adams MD as Consulting Physician (Pain Medicine) Damien Berg MD as Surgeon (Neurosurgery) New Medications Ordered This Visit Medications ??? Liniments (SALONPAS) pads Sig: Apply topically. prn ??? baclofen (LIORESAL) 10 MG tablet Sig: Start 1/2 tab QHS, then 1/2 tab TID PRN muscle spasms, if tolerated, 1 tab TID PRN Dispense: 90 tablet Refill: 3 Future Appointments Date Time Provider Department Center 02/02/2016 10:30 AM MD LILIANA Spaulding Vascello, MD documented in this encounter Plan of Treatment Upcoming Encounters Date Type Department Care Team (Late st Contact Info) Description 03/13/2024 2:45 PM EST Office Visit [facility] [address] [place] [address] [place] [address] Pj Ace MD [address] [facility] [address] [place] [address] documented as of this encounter Visit Diagnoses Diagnosis Postlaminectomy syndrome of lumbar region Postlaminectomy syndrome, lumbar region Meningeal adhesions/lumbar arachnoiditis Lumbar facet arthropathy/lumbar spondylosis without myelopathy Spondylosis of unspecified site without mention of myelopathy Sacroiliac joint dysfunction of left side Obesity with sleep apnea Moderate obesity Insomnia, unspecified type Generalized anxiety disorder History of migraine headaches Chronic pain syndrome Myofascial pain syndrome Unspecified myalgia and myositis Physical deconditioning Muscular wasting and disuse atrophy, not elsewhere classified documented in this encounter Care Teams Recreation Therapy Director Relationship Specialty Start Date End Date Deepak Cortez MD PCP - General 12/31/14 12/12/16 documented as of this encounter
--- OUTSIDE RECORDS SUMMARY | 2024-02-20 09:16 | XMS_ITS | Encounter Summary ---
[facility] Address [address] [place] [address] Care Team Providers Care Upholstery Technician Name Role Phone Deepak Cortez MD Primary Care Provider Unav ailable Reason for Visit * Reason Comments Med Refill Encounter Details Date Type Department Care Team (Late st Contact Info) Description 03/29/2016 Refill [facility] [address] [facility] [address] [place] [id number] Bebeto Adams MD [address]60 [facility] [address] [place] [address] Social History Tobacco Use Types Packs/Day Years [...] CENTER CARDIOLOGY [address] [place] [address] [place] [address] Pj Ace MD [address] [facility] [address] [place] [address] documented as of this encounter Visit Diagnoses Not on filedocumented in this encounter Care Teams Upholstery Technician Relationship Specialty Start Date End Date Deepak Cortez MD PCP - General 12/31/14 12/12/16 documented as of this encounter
--- OUTSIDE RECORDS SUMMARY | 2024-02-20 09:16 | XMS_ITS | Encounter Summary ---
[facility] Address [address] [place] [address] Care Team Providers Care Board Worker Name Role Phone Deepak Cortez MD Primary Care Provider Unav ailable Reason for Visit * Reason Comments Follow-up [facility] Back Pain Extremity Pain bilateral Encounter Details Date Type Department Care Team (Late st Contact Info) Description 02/01/2016 1:15 PM EDT Office Visit [facility] [address] [facility] [address] [place] [address] Bebeto Adams MD [address] [facility] [address] [place] [address] Postlaminectomy syndrome of lumbar region (Primary Dx); Herniated lumbar intervertebral disc; Meningeal adhesions; Meningeal adhesions/lumbar arachnoiditis; Lumbar facet arthropathy/lumbar spondylosis without myelopathy; Sacroiliac joint dysfunction of left side; Obesity with sleep apnea; Moderate obesity; Insomnia, unspecified type; Generalized anxiety disorder; Migraine without aura and without status migrainosus, not intractable; Chronic pain syndrome; Myofascial pain syndrome; Physical [...] Sign Reading Time Taken Comments Blood Pressure 159/87 02/01/2016 1:43 PM EDT Pulse 83 02/01/2016 1:43 PM EDT Temperature 36.4 ??C (97.6 ??F) 02/01/2016 1:43 PM ED T Respiratory Rate 18 02/01/2016 1:43 PM EDT Oxygen Saturation 95% 02/01/2016 1:43 PM EDT Inhaled Oxygen Concentration - - Weight 87.2 kg (192 lb 3.2 oz) 02/01/2016 1:43 P M EDT Height 157.5 cm (5' 2 ) 02/01/2016 1:43 PM EDT Body Mass Index 35.15 02/01/2016 1:43 PM EDT documented in this encounter Progress Notes * Bebeto Adams MD - 02/01/2016 3:17 PM EDT Chief Complain: I need to be reprogrammed. The stimulator is not covering the pain across my back and in both legs. ? Brief History: Ms. Gonzalez to clinic today for evaluation of her chronic pain and possible reprogramming of her [employer] spinal cord stimulator device. Pain pattern is unchanged with pain across her low back and down bilateral posterior lower extremities groin and left leg through the foot to the 2nd and 3rd toes, the right side radiates to the heel. She has returned with her baseline left sided pain greater than the right. She was programmed at her last visit which seemed to take care of her pain, but 48 hours later, stimulation was not as effective. She has been programmed today and reports she is feeling better relief of her pain. She reports that she feels paresthesia across her back, down bilateral lower extremities into the feet, and the stimulation is subdueing the pain. Her currentpain level is 3/10 (when she presented today she was 6/10). She has been depressed. It is difficultbecause with the amount of pain she suffers with, she has been unable to be intimate with her for a year. Patient's original pain was low back down the left lower extremity to the foot. She felt better when she did water therapy, but travel is difficult. She currently is not participating with any form of exercise or physical therapy. She has not been walking for 15 minutes every other day. She has declined further follow up after her sleep study. [facility] She continues care with Dr. Burks seen 01/13/2016, who continues her Pristiq, which was incr eased, the Abilify has not currently been reinitiated. She continues therapy with Yoanna Osman (seen 01/12/2016) for counseling. She uses ice and heat in the areas of her chronic pain. In terms of analgesics, she uses SalonPas, and baclofen, Tramadol, Zipsor, Lidocaine Patches and Tylenol without side effects. GENE #[id number], is consistent with medication reconciliation. No new diagnostic studies to review. ? Diagnostic [...] for fatigue. Musculoskeletal: Positive for back pain. Neurological: Positive for numbness. Psychiatric/Behavioral: Positive for agitation, confusion and sleep disturbance. The patient is nervous/anxious. All other systems reviewed and are negative. ? Visit Vitals ??? BP 159/87 (BP Location: Left arm, Patient Position: Sitting) ??? Pulse 83 ??? Temp 97.6 ??F (36.4 ??C) (Tympanic) ??? Resp 18 ??? Ht 62 (157.5 cm) ??? Wt 192 lb (87.2 kg) ??? SpO2 95% ??? BMI 35.15 kg/m2 Physical Exam Constitutional General appearance: No acute distress, [...] her stimulator device for a total of 453 hours since last reprogramming, and 7448 lifetime hours. Analysis of impedancereveals normal impedance for all contacts. Spinal cord stimulator device was reprogrammed under my supervision by adjusting electrode polarities, pulse width, pulse rate, and amplitudes, by recreating program one and adding program two, as follows; Program TWO Electrode polarities: 1+, 2-, 4+, 5-, 6-, 7+ Amplitude: 5.8 mA (0-25.5) Pulse width: 325 mcs Pulse Rate: 90 Hz Time spent reprogrammin minutes. A copy [...] ?? PLAN: Patient's chronic pain condition is improved. Continue current management and any additional workup, referrals, and treatments as outlined in the following plan: 1. Follow-up in twelve weeks. We will start BurstDR as soon as it becomes available. If patient continues to struggle with pain, then, we will proceed with diagnostic/therapeutic right L4-L5 and leftL5-S1 transforaminal epidural steroid injection. We may repeat another epidural depending on patient???s outcome. 2. Long-term rehabilitation efforts: a. Start comprehensive physical therapy program b. Start an independent exercise program based on water therapy c. Follow-up at [facility] d. Follow-up with [...] the plan and agrees to proceed accordingly. ? Patient Care Team: Deepak Cortez MD as Referring Physician (Internal Medicine) Bebeto Adams MD as Consulting Physician (Pain Medicine) Damien Berg MD as Surgeon (Neurosurgery) documented in this encounter Plan of Treatment Upcoming Encounters Date Type Department Care Team (Late st Contact Info) Description 03/13/2024 2:45 PM EST Office Visit [facility] [address] [place] [address] [address] Pj Ace MD [address] [place] [address] documented as of this encounter Visit Diagnoses Diagnosis Postlaminectomy syndrome of lumbar region- Primary Postlaminectomy syndrome, lumbar region Herniated lumbar intervertebral disc Displacement of lumbar intervertebral disc without myelopathy Meningeal adhesions/lumbar arachnoiditis Lumbar facet arthropathy/lumbar spondylosis without myelopathy Spondylosis of unspecified site without mention of myelopathy Sacroiliac joint dysfunction of left side Obesity with sleep apnea Moderate obesity Insomnia, unspecified type Generalized anxiety disorder Migraine without aura and without status migrainosus, not intractable Chronic pain syndrome Myofascial pain syndrome Unspecified myalgia and myositis Physical deconditioning Muscular wasting and disuse atrophy, not elsewhere classified documented in this encounter Care Teams Board Worker Relationship Specialty Start Date End Date Deepak Cortez MD PCP - General 12/31/14 12/12/16 documented as of this encounter
--- OUTSIDE RECORDS SUMMARY | 2024-02-20 09:17 | XMS_ITS | Encounter Summary ---
[facility] Address [address] [place] [id number] Care Team Providers Care Hospitalist Medical Director Name Role Phone Mari Cortez MD Primary Care Provider Unav ailable Reason for Visit * Reason Comments Annual Exam Encounter Details Date Type Department Care Team ([facility] st Contact Info) Description 05/07/[address] [facility] INTERNAL MEDICINE [address] [place] [address] Mari Cortez MD Social History Tobacco Use Types Packs/Day Years Used Date Smoking Tobacco: Never Assessed Comments Unknown Sex and Gender Information Value Date Recorded Sex Assigned at Not on file Legal Sex Female 10:25 AM EDT Gender Identity Not on file Sexual Orientation Not on file documented as of this encounter Last Filed Vital Signs Vital Sign Reading Time Taken Comments Blood Pressure 142/98 05/07/2015 10:59 AM EST Pulse 72 05/07/2015 10:59 AM EST Temperature - - Respiratory Rate - - Oxygen Saturation - - Inhaled Oxygen Concentration - - Weight 82.6 kg (182 lb 2 oz) 05/07/2015 10:59 AM EST Height - - Body Mass Index 33.31 04/27/2015 1:41 PM EST documented in this encounter Progress Notes * Mari Cortez MD - 05/07/2015 10:45 AM EST Chief Complaint PE History of Present Illness HM, Adult Female: The patient is being seen for a health maintenance evaluation. The last health maintenance visit was year(s) ago. Social History: Household members include spouse. She is . Work status: currently on disability. The patient has never smoked cigarettes. She reports never drinking alcohol. General Health: The patient's health is described as good. She has regular dental visits. She denies vision problems. She denies hearing loss. Immunizations status: up to date. Lifestyle:. She does not have a healthy diet. She has weight concerns. She does not exercise regularly. Reproductive health: the patient is postmenopausal . She is not sexually active. Due to back pain and vaginal. Screening: Cervical cancer screening includes uncertain timing of her last pap smear. Breast cancerscreening includes a mammogram performed last year. Colorectal cancer screening includes a colonoscopy performed within the past ten years. Metabolic screening includes lipid profile performed within the past five years, glucose screening performed last year, thyroid function test performed last year and no previous DEXA. General health risks: previous colon polyps and osteoporosis risk factors, but no previous breast cancer, no abnormal cervical cytology, no positive screening for human papilloma virus, no hormone therapy and no inflammatory bowel disease. Safety elements used: seat belt, bicycle helmet, sunscreen and fall prevention measures, but no motorcycle helmet, no safe driving habits and no gun safe. Risk findings: guns at home, but no passive smoke exposure, no unsafe sexual behavior, no chemical abuse, no domestic violence, no anxiety symptoms and no depression symptoms. HPI: complains of vaginal dryness and painful intercourse. Active Problems 1. Chronic pain (338.29) (G89.29) 2. Depression (311) (F32.9) 3. Diabetes mellitus (250.00) (E11.9) ?? pre diabetes 4. Fatigue (780.79) (R53.83) 5. Hip pain (719.45) (M25.559) 6. Hyperlipidemia (272.4) (E78.5) 7. Lumbar herniated disc (722.10) (M51.26) 8. Morbid obesity (278.01) (E66.01) 9. Neuropathic pain (729.2) (M79.2) Past Medical History ?? History of Alopecia (704.00) (L65.9) ?? History of Anxiety (300.00) (F41.9) ?? History of Benign essential hypertension (401.1) (I10) ?? History of Colon polyps (211.3) (K63.5) ?? History of Colonoscopy (Fiberoptic) ?? History of Complication of device (996.70) (T85.9XXA) ?? History of Decreased libido (799.81) (R68.82) ?? History of Dizziness (780.4) (R42) ?? History of Encounter for long-term (current) use of medications (V58.69) (Z79.899) ?? History of backache (V13.59) (Z87.39) ?? History of diabetes mellitus (V12.29) (Z86.39) ?? History of hypertension (V12.59) (Z86.79) ?? History of mastoiditis (V12.09) (Z86.69) ?? History of migraine headaches (V12.49) (Z86.69) ?? History of urinary stone (V13.01) (Z87.442) ?? History of Infection of kidney (590.9) (N15.9) ?? History of Insomnia (780.52) (G47.00) ?? History of Lumbar radiculopathy (724.4) (M54.16) ?? History of Migraine headache (346.90) (G43.909) ?? History of Myofascial pain syndrome (729.1) (M79.1) ?? History of Palpitations (785.1) (R00.2) ?? History of reported Pap smear ?? History of Spinal cord stimulator status (V45.89) (Z96.89) ?? History of Stress reaction, emotional (308.0) (F43.9) ?? History of Urinary incontinence (788.30) (R32) ?? History of Urinary tract infection (599.0) (N39.0) ?? History of Visit for screening mammogram (V76.12) (Z12.31) ?? 11/27/2008 ?? History of Vitamin d deficiency (268.9) (E55.9) Surgical History ?? History of Bladder Surgery ?? History of Complete Colonoscopy ?? Last Impression: May, due 2024 Mari Cortez (Internal Medicine) ?? History of Elbow Surgery ?? History of Lower Back Surgery ?? History of Spinal Stereotaxis Stimulation Of Cord ?? History of Total Abdominal Hysterectomy ?? BSO Family History ?? Family history of hypertension (V17.49) (Z82.49) ?? Family history of peripheral vascular disease (V17.49) (Z82.49) ?? Family history of Lung disease, bullous ?? Family history of type 2 diabetes mellitus Social History ?? Caffeine use (V49.89) (F15.90) ?? marital history - currently ?? History of marital history - (V61.03) ?? never drank alcohol ?? Never smoked tobacco (Z78.9) Current Meds Medication Name Instruction Chlorthalidone 25 MG Oral Tablet Take 1 tablet daily Doxazosin Mesylate 2 MG Oral Tablet TAKE 1.5 TABLETS DAILY Lidocaine 5 % External Patch APPLY 1 PATCH TO THE AFFECTED AREA AND LEAVE IN PLACE FOR 12 HOURS, THEN REMOVE AND LEAVE OFF FOR 12 HOURS. Metaxalone 800 MG Oral Tablet TAKE 1/2 to 1 TABLET 3 TIMES DAILY NEEDED FOR MUSCLE SPASM. Pristiq 100 MG Oral Tablet Extended Release 24 Hour 1 tablet daily Topiramate 50 MG Oral Tablet TAKE 1 TABLET TWICE DAILY. TraMADol HCl - 50 MG Oral Tablet TAKE 1 TO 2 TABLETS EVERY 6 HOURS NEEDED FOR PAIN. TraZODone HCl - 50 MG Oral Tablet TAKE 1-2 TABLETS AT BEDTIME NEEDED. Tylenol Extra Strength 500 MG Oral Tablet TAKE 1 TABLET EVERY 4 TO 6 HOURS NEEDED. Zipsor 25 MG Oral Capsule one pill up to four times daily as needed for pain. Do NOT take with any other NSAIDs. Allergies 1. JORGITO Inhibitors 2. Actos TABS 3. Beta Adrenergic Blockers 4. Flexeril TABS 5. Hydrochlorothiazide TABS 6. Hyzaar TABS 7. Losartan Potassium TABS 8. MetFORMIN HCl TABS 9. Norvasc TABS 10. Spironolactone TABS Denied 11. Naproxen TABS Vitals Signs [Data Includes: Current Encounter] Heart Rate: 72 Systolic: 142 Diastolic: 98 Weight: 182 lb 2 oz BMI Calculated: 33.31 BSA Calculated: 1.84 Physical Exam Constitutional General appearance: No acute distress, well appearing and well nourished. Head and Face Head and face: Normal. Palpation of the face and sinuses: No sinus tenderness. Eyes Conjunctiva and lids: No swelling, erythema or discharge. Pupils and irises: Equal, round, reactive to light. Ears, Nose, Mouth, and Throat External inspection of ears and nose: Normal. Otoscopic examination: Tympanic membranes translucent with normal light reflex. Canals patent without erythema. Hearing: Normal. Nasal mucosa, septum, and turbinates: Normal without edema or erythema. Lips, teeth, and gums: Normal, good dentition. Oropharynx: Normal with no erythema, edema, exudate or lesions. Neck Neck: Supple, symmetric, trachea midline, no masses. Thyroid: Normal, no thyromegaly. Pulmonary Respiratory effort: No increased work of breathing or signs of respiratory distress. Auscultation of lungs: Clear to auscultation. Cardiovascular Auscultation of heart: Normal rate and rhythm, normal S1 and S2, no murmurs. Carotid pulses: 2+ bilaterally. Abdominal aorta: Normal. Femoral pulses: 2+ bilaterally. Pedal pulses: 2+ bilaterally. Peripheral vascular exam: Normal. Examination of extremities for edema and/or varicosities: Normal. Chest Breasts: Normal, no dimpling or skin changes appreciated. Palpation of breasts and axillae: Normal, no masses palpated. Chest: Normal. Abdomen Abdomen: Non-tender, no masses. Liver and spleen: No hepatomegaly or splenomegaly. Examination for hernias: No hernia appreciated. Anus, perineum, and rectum: Normal sphincter tone, no masses, no prolapse. Lymphatic Palpation of lymph nodes in neck: No lymphadenopathy. Musculoskeletal Gait and station: Normal. Digits and nails: Normal without clubbing or cyanosis. Joints, bones, and muscles: Normal. Range of motion: Normal. Stability: Normal. Muscle strength/tone: Normal. Skin Skin and subcutaneous tissue: Normal without rashes or lesions. Neurologic Cranial nerves: Cranial nerves II-XII intact. Cortical function: Normal mental status. Reflexes: 2+ and symmetric. Sensation: No sensory loss. Coordination: Normal finger to nose and heel to kennedy. Psychiatric Judgment and insight: Normal. Orientation to person, place, and time: Normal. Recent and remote memory: Intact. Mood and affect: Normal. Assessment 1. Caffeine use (V49.89) (F15.90) 2. History of Complete Colonoscopy ?? July 2014, due 2024 3. Vaginal atrophy (627.3) (N95.2) 4. Encounter for preventive health examination (V70.0) (Z00.00) 5. Diabetes mellitus (250.00) (E11.9) ?? pre diabetes Plan Diabetes mellitus, Health Maintenance ?? Hemoglobin A1C; Status:Hold For - Specimen Collection and/or Additional Processing; Requested for:07May2015; Health Maintenance ?? CBC wo Diff; Status:In Progress - Specimen/Data Collected; Done: 07May2015 ?? Lipid Profile ( Comprehensive Panel ); Status:In Progress - Specimen/Data Collected; Done: 07May2015 Hyperlipidemia ?? CMP; Status:In Progress - Specimen/Data Collected; Done: 07May2015 PMH: Complete Colonoscopy ?? Administered: (Boostrix) Vaginal atrophy ?? Start: 0.1 MG/GM Vaginal Cream; INSERT 1 APPLICATORFUL INTRAVAGINALLY AT BEDTIME NIGHTLY for 1 week then 1 applicator 3 nights a week for a week, then once weekly Discussion/Summary Impression: health maintenance visit. End of Encounter Meds Medication Name Instruction Chlorthalidone 25 MG Oral Tablet Take 1 tablet daily Doxazosin Mesylate 2 MG Oral Tablet TAKE 1.5 TABLETS DAILY Estrace 0.1 MG/GM Vaginal Cream INSERT 1 APPLICATORFUL INTRAVAGINALLY AT BEDTIME NIGHTLY for 1 weekthen 1 applicator 3 nights a week for a week, then once weekly Lidocaine 5 % External Patch APPLY 1 PATCH TO THE AFFECTED AREA AND LEAVE IN PLACE FOR 12 HOURS, THEN REMOVE AND LEAVE OFF FOR 12 HOURS. Metaxalone 800 MG Oral Tablet (Skelaxin) TAKE 1/2 to 1 TABLET 3 TIMES DAILY NEEDED FOR MUSCLE SPASM. Pristiq 100 MG Oral Tablet Extended Release 24 Hour 1 tablet daily Topiramate 50 MG Oral Tablet TAKE 1 TABLET TWICE DAILY. TraMADol HCl - 50 MG Oral Tablet TAKE 1 TO 2 TABLETS EVERY 6 HOURS NEEDED FOR PAIN. TraZODone HCl - 50 MG Oral Tablet TAKE 1-2 TABLETS AT BEDTIME NEEDED. Tylenol Extra Strength 500 MG Oral Tablet TAKE 1 TABLET EVERY 4 TO 6 HOURS NEEDED. Zipsor 25 MG Oral Capsule one pill up to four times daily as needed for pain. Do NOT take with any other NSAIDs. Patient Care Team Care Hospitalist Medical Director Role Specialty Office Number MARI [facility] Internal Medicine [facility] Neurology HE[facility] K[facility] Pain Management [facility] LAINE[facility] Pain Management Future Appointments Date/Time Provider Specialty Site 07/06/2015 01:00 PM Heather Lainez M.D. Pain Management [facility] PAIN MANAGEMENT [facility] Signatures Electronically signed by : Mari Cortez M.D.; May 07 2015 11:57AM EST (Author) documented in this encounter Plan of Treatment Upcoming Encounters Date Type Department Care Team (Late st Contact Info) Description 03/13/2024 2:45 PM EST Office Visit [facility] [address] [place] [address] [place] [address] Pj Ace MD [address] [facility] [address] [facility] [address] [place] [address] documented as of this encounter Visit Diagnoses Not on filedocumented in this encounter Care Teams Hospitalist Medical Director Relationship Specialty Start Date End Date Mari Cortez MD PCP - General 12/31/14 12/12/16 documented as of this encounter
--- OUTSIDE RECORDS SUMMARY | 2024-02-20 09:17 | XMS_ITS | Encounter Summary ---
[facility] Address [address] [place] [address] Care Team Providers Care Gripper Machine Operator Name Role Phone Mari Cortez MD Primary Care Provider Unav ailable Encounter Details Date Type Department Care Team (Late st Contact Info) Description 01/12/2015 Office Visit Converted [facility] INTERNAL MEDICINE [address] [place] [address] Mari Cortez MD Social History [...] Reading Time Taken Comments Blood Pressure 138/76 01/12/2015 9:19 AM EDT Pulse 80 01/12/2015 9:19 AM EDT Temperature - - Respiratory Rate - - Oxygen Saturation - - Inhaled Oxygen Concentration - - Weight 84.4 kg (186 lb 2.2 oz) 01/12/2015 9:19 A M EDT Height - - Body Mass Index 34.04 01/07/2015 2:17 PM EDT documented in this encounter Progress Notes * Mari Cortez MD - 01/12/2015 9:15 AM EDT Chief Complaint F/U to get lab results and recheck back pain post device placement. Pt had another back surgery 12-31-14 and feels some better. Is having discomfort between shoulder blades in area of surgery. Active Problems 1. Backache (724.5) (M54.9) 2. Complication of device (996.70) (T85.9XXA) 3. Depression (311) (F32.9) 4. Diabetes mellitus (250.00) (E11.9) ?? pre diabetes 5. Fatigue (780.79) (R53.83) 6. Hip pain (719.45) (M25.559) 7. Lumbar herniated disc (722.10) (M51.26) 8. Lumbar radiculopathy (724.4) (M54.16) 9. Morbid obesity (278.01) (E66.01) 10. Spinal cord stimulator status (V45.89) (Z96.89) Past Medical History ?? History of Alopecia (704.00) (L65.9) ?? History of Anxiety (300.00) (F41.9) ?? History of Benign essential hypertension (401.1) (I10) ?? History of Colon polyps (211.3) (K63.5) ?? History of Colonoscopy (Fiberoptic) ?? History of Decreased libido (799.81) (R68.82) ?? History of Dizziness (780.4) (R42) ?? History of Encounter for long-term (current) use of medications (V58.69) (Z79.899) ?? History of diabetes mellitus (V12.29) (Z86.39) ?? History of hypertension (V12.59) (Z86.79) ?? History of mastoiditis (V12.09) (Z86.69) ?? History of migraine headaches (V12.49) (Z86.69) ?? History of urinary stone (V13.01) (Z87.442) ?? History of Infection of kidney (590.9) (N15.9) ?? History of Insomnia (780.52) (G47.00) ?? History of Migraine headache (346.90) (G43.909) ?? History of Myofascial pain syndrome (729.1) (M79.1) ?? History of Palpitations (785.1) (R00.2) ?? History of reported Pap smear ?? History of Stress reaction, emotional (308.0) (F43.9) ?? History of Urinary incontinence (788.30) (R32) ?? History of Urinary tract infection (599.0) (N39.0) ?? History of Visit for screening mammogram (V76.12) (Z12.31) ?? 11/27/2008 ?? History of Vitamin d deficiency (268.9) (E55.9) Surgical History ?? History of Bladder Surgery ?? History of Elbow Surgery ?? History of Lower Back Surgery ?? History of Spinal Stereotaxis Stimulation Of Cord ?? History of Total Abdominal Hysterectomy ?? BSO Family History ?? Family history of hypertension (V17.49) (Z82.49) ?? Family history of peripheral vascular disease (V17.49) (Z82.49) ?? Family history of Lung disease, bullous ?? Family history of type 2 diabetes mellitus Social History ?? caffeine use ?? marital history - currently ?? History of marital history - (V61.03) ?? never drank alcohol ?? Never smoked tobacco (Z78.9) Current Meds Medication Name Instruction Chlorthalidone 25 MG Oral Tablet TAKE 1 TABLET DAILY. Doxazosin Mesylate 1 MG Oral Tablet TAKE 3 TABLETS EVERY NIGHT AT BEDTIME Lidocaine 5 % External Patch APPLY 1 [...] Signs [Data Includes: Current Encounter] Heart Rate: 80 Systolic: 138 Diastolic: 76 Weight: 186 lb 2 oz BMI Calculated: 34.04 BSA Calculated: 1.85 Physical Exam Complete Multi-System Exam (Brief): Constitutional General appearance: No acute distress, well appearing and well nourished. Eyes Conjunctiva and lids: No swelling, erythema or discharge. Pupils and irises: Equal, round and reactive to light. Ears, Nose, Mouth, and Throat External inspection of ears and nose: Normal. Pulmonary Respiratory effort: No increased work of breathing or signs of respiratory distress. Auscultation of lungs: Clear to auscultation. Neck Neck: Supple, symmetric, trachea midline, no masses. Cardiovascular Auscultation of heart: Normal rate and rhythm, normal S1 and S2, without murmurs. Examination of extremities for edema and/or varicosities: Normal. Abdomen Abdomen: Non-tender, no masses. Liver and spleen: No hepatomegaly or splenomegaly. Psychiatric Orientation to person, place, and time: Normal. Mood and affect: Normal. Discussion/Summary Discussion Summary: We discussed her hyperlipidemia and she does not want to take statins because she has had horrible side effects. She would like to try diet changes and then consider the PCSK9 inhibitor. She will f/uin three months for a physical and labs. Assessment 1. Diabetes mellitus (250.00) (E11.9) ?? pre diabetes 2. Hyperlipidemia (272.4) (E78.5) 3. Depression (311) (F32.9) 4. Encounter for preventive health examination (V70.0) (Z00.00) Plan Health Maintenance ?? CBC wo Diff; Status:Hold For - Specimen Collection and/or Additional Processing; Requested for:14Apr2015; ?? Lipid Profile ( Comprehensive Panel ); Status:Hold For - Specimen Collection and/or Additional Processing; Requested for:14Apr2015; the Patient Fasting: : Yes - Y Hyperlipidemia ?? CMP; Status:Hold For - Specimen Collection and/or Additional Processing; Requested for:14Apr2015; End of Encounter Meds Medication Name Instruction Chlorthalidone 25 MG Oral Tablet TAKE 1 TABLET DAILY. Doxazosin Mesylate 1 MG Oral Tablet TAKE 3 TABLETS EVERY NIGHT AT BEDTIME Lidocaine 5 % External Patch APPLY 1 [...] any other NSAIDs. Patient Care Team Care Gripper Machine Operator Role Specialty Office Number MARI Moore Internal Medicine [facility] Neu[facility] Pain Management Future Appointments Date/Time Provider Specialty Site 01/13/2015 11:00 AM Poli Chaudhry PA-C Neurosurgery [facility] 01/20/2015 09:00 AM Denis Lozano M.D. Pulmonary Medicine [facility] [place] PULMONARY SLEEP STUDY 01/26/2015 06:30 AM Heather Adams M.D. Pain Management [facility] PAIN MANAGEMENT MARK Signatures Electronically signed by : Mari Cortez M.D.; Jan 12 2015 10:11AM EST (Author) documented in this encounter Plan of Treatment Upcoming Encounters Date Type Department Care Team (Late st Contact Info) Description 03/13/2024 2:45 PM EST Office Visit [facility] [address] [facility] [place] [place] [address] Pj Ace MD [facility] [facility] [address] [facility] [address] [place] [address] documented as of this encounter Visit Diagnoses Not on filedocumented in this encounter Care Teams Gripper Machine Operator Relationship Specialty Start Date End Date Mari Cortez MD PCP - General 12/31/14 12/12/16 documented as of this encounter
--- OUTSIDE RECORDS SUMMARY | 2024-02-20 09:17 | XMS_ITS | Encounter Summary ---
[facility] Address [address] [place] [address] Care Team Providers Care Electric Meter Setter Name Role Phone Deepak Cortez MD Primary Care Provider Unav ailable Reason for Referral * Health Education (Routine) - Closed Specialty Diagnoses / Procedures Referred By Yodit salinas Referred To Contact Nutrition Diagnoses Moderate obesity Bebeto Adams MD [address] [facility] [address] [place] [address] Phone: tel: fax: [facility] [place] [address] [facility] [address] [place] [address] Phone: tel: fax: Referral ID Status Reason Start Date Expiration Date V isits Requested Visits Authorized [id number] Closed Specialty Services Required 10/14/2015 04/11/2016 1 1 Reason for Visit * Reason Comments Back Pain left buttock-hip Extremity Pain left Encounter Details Date Type Department Care Team (Late st Contact Info) Description 10/14/2015 1:30 PM EDT Office Visit [facility] [address] [facility] [address] [place] [address] Bebeto Adams MD [address] [facility] [address] [place] [address] Postlaminectomy syndrome of lumbar region; Meningeal adhesions/lumbar arachnoiditis; Lumbar facet arthropathy/lumbar spondylosis without myelopathy; Sacroiliac joint dysfunction of left side; Obesity with sleep apnea; Moderate obesity; Insomnia, unspecified insomnia; Generalized anxiety disorder; History of migraine headaches; Physical deconditioning Social History Tobacco Use Types [...] Sign Reading Time Taken Comments Blood Pressure 146/88 10/14/2015 12:56 PM EDT Pulse 88 10/14/2015 12:56 PM EDT Temperature 36.1 ??C (97 ??F) 10/14/2015 12:56 PM EDT Respiratory Rate 18 10/14/2015 12:56 PM EDT Oxygen Saturation 95% 10/14/2015 12:56 PM EDT Inhaled Oxygen Concentration - - Weight 84.4 kg (186 lb) 10/14/2015 12:56 PM EDT Height 157.5 cm (5' 2 ) 10/14/2015 12:56 PM EDT Body Mass Index 34.02 10/14/2015 12:56 PM EDT documented in this encounter Progress Notes * Bebeto Adams MD - 10/14/2015 5:36 PM EDT Chief Complain: I was doing well with my stimulator until he lost stimulation in my left hip but most of the time the stimulator controls by pain. Brief History: Ms. Gonzalez to clinic today for evaluation of her chronic left hip and lower extremity pain and possible reprogramming of her [employer] spinal cord stimulator device. She reports that she feels paresthesia across her back, left hip, buttock and down the posterior and medial aspect of the left leg, in all areas of her chronic pain, although at times the pain overrides the stimulation. She reports pain in her left buttock and hip rated as 4/10. Patient reports that at times her stimulator controls her pain fully, and expresses a pain level of 0-1/10. She feels better when she did water therapy. She has declined follow up after her at-home sleep study. She was released by [facility]. She continues care with Dr. Burks, who will be increasing her Geodon and Pristiq today, as per patient. She continues therapy with Yoanna Osman for counseling. She uses ice and heat in the areas of her chronic pain. In terms of analgesics, she uses over-the- counter pain patches,and Skelanxin, Tramadol, Zipsor and Tylenol without side effects. GENE #[id number] is consistent with medication reconciliation. Diagnostic Studies: X-rays of the sacroiliac joints [...] and are negative. Visit Vitals ??? BP 146/88 (BP Location: Left arm, Patient Position: Sitting) ??? Pulse 88 ??? Temp 97 ??F (36.1 ??C) (Oral) ??? Resp 18 ??? Ht 62 (157.5 cm) ??? Wt 186 lb (84.4 kg) ??? SpO2 95% ??? BMI 34.02 kg/m2 Physical Exam Neurologic Exam Constitutional General [...] remote memory: Intact. Mood and affect: Normal. PROCEDURE: Analysis of the spinal cord stimulator device with complex spinal cord stimulator reprogramming Analysis of the spinal cord stimulator device reveals that the patient has used her stimulator device for a total of 1183 hours since last reprogramming, and 5932 lifetime hours, on average 20 hours per day. Analysis of impedance reveals normal impedance for all contacts. Spinal cord stimulator device was reprogrammed under my supervision by adjusting electrode polarities, pulse width, pulse rate, and amplitudes, by recreating all programs for a total of four programs, as follows; Program FOUR (best program): Electrode polarities: 3+, 4-, 5+, 9+, 11- Amplitude: 8.2 mA (0-25.5) Pulse width: 400 mcs Pulse Rate: 140 Hz Time spent reprogrammin minutes. A copy of the telemetry report will be scanned in the patient's chart ASSESSMENT: 1. Postlaminectomy syndrome of lumbar region 2. Meningeal adhesions/lumbar arachnoiditis 3. Lumbar facet arthropathy/lumbar spondylosis without myelopathy 4. Sacroiliac joint dysfunction of left side 5. Obesity with sleep apnea 6. Moderate obesity 7. Insomnia, unspecified insomnia 8. Generalized anxiety disorder 9. History of migraine headaches 10. Physical deconditioning PLAN: Patient's chronic pain condition is significantly improved. Continue current management and any additional workup, referrals, and treatments as outlined in the following plan: 1. Follow-up in twelve weeks. If patient continues to struggle with pain, then, we will proceed with diagnostic/therapeutic left L5-S1 and left S1 transforaminal epidural steroid injections. We may repeat another epidural depending on patient???s outcome. 2. Long-term rehabilitation efforts: a. Start comprehensive physical therapy program b. Start an independent exercise program based on water therapy c. Follow-up at [facility] d. Follow-up [...] tramadol e. Continue lidocaine patches f. Continue Skelaxin 800 mg, take 1/2 to 1 three times daily as needed for muscle spasms g. Continue Geodon and Pristiq as prescribed by Dr. Burks 4. Medication reconciliation has been performed in accordance to patient???s records. Patient has completed a SOAPP questionnaire and ORT questionnaire (revealing low risk). Gene reports have been reviewed and appropriate. 5. Patient has been screened for tobacco use: Current tobacco non-user 6. The patient has been instructed to contact my office with any questions or difficulties. The patient understands the plan and agrees to proceed accordingly. Patient Care Team: Deepak Cortez MD as PCP - General Deepak Cortez MD as Referring Physician (Internal Medicine) Bebeto Adams MD as Consulting Physician (Pain Medicine) Damien eBrg MD as Surgeon (Neurosurgery) No orders of the defined types were placed in this encounter. Future Appointments Date Time Provider Department Center 11/02/2015 10:30 AM MD [facility] None 01/13/2016 1:00 PM MD LILIANA Barillas [facility] None Bebeto Adams MD documented in this encounter Plan of Treatment Upcoming Encounters Date Type Department Care Team (Late st Contact Info) Description 03/13/2024 2:45 PM EST Office Visit [facility] [address] [place] [address] [place] [address] Pj Ace MD [address] [facility] [address] [place] [address] Scheduled Referrals Name Type Priority Associated Diagnoses Order Schedule Ambulatory referral to Nutrition Services Outpatient Referral Routine Moderate obesity Ordered: 10/14/2015 documented as of this encounter Visit Diagnoses Diagnosis Postlaminectomy syndrome of lumbar region Postlaminectomy syndrome, lumbar region Meningeal adhesions/lumbar arachnoiditis Lumbar facet arthropathy/lumbar spondylosis without myelopathy Spondylosis of unspecified site without mention of myelopathy Sacroiliac joint dysfunction of left side Obesity with sleep apnea Moderate obesity Insomnia, unspecified insomnia Generalized anxiety disorder History of migraine headaches Physical deconditioning Muscular wasting and disuse atrophy, not elsewhere classified documented in this encounter Care Teams Electric Meter Setter Relationship Specialty Start Date End Date Deepak Cortez MD PCP - General 12/31/14 12/12/16 documented as of this encounter
--- OUTSIDE RECORDS SUMMARY | 2024-02-20 09:17 | XMS_ITS | Encounter Summary ---
[facility] [address] [place] [address] Care Team Providers Care Marketing Project Lead Name Role Phone Deepak Cortez MD Primary Care Provider Unav ailable Reason for Visit * Reason Comments Med Refill Encounter Details Date Type Department Care Team (Late st Contact Info) Description 08/17/2015 Refill [facility] [address] [place] [address] Deepak Cortez MD Social History [...] [facility] [address] [place] [address] [place] [address] Pj Ace MD [address] [facility] [address] [place], [place] [id number] documented as of this encounter Visit Diagnoses Not on filedocumented in this encounter Care Teams Marketing Project Lead Relationship Specialty Start Date End Date Deepak Cortez MD PCP - General 12/31/14 12/12/16 documented as of this encounter
--- OUTSIDE RECORDS SUMMARY | 2024-02-20 09:17 | XMS_ITS | Encounter Summary ---
[facility] Address [address] [place] [id number] Care Team Providers Care Cylinder Sander Operator Name Role Phone Deepak Cortez MD Primary Care Provider Unav ailable Encounter Details Date Type Department Care Team (Late st Contact Info) Description 07/20/2015 11:18 AM EDT - 07/20/2015 11:59 PM EDT Hospital Encounter [facility] [address] [place] [address] Bebeto Adams MD [address] [facility] [address] [place] [address] Discharge Disposition: Home or Self Care Social [...] to 6 hours as needed 12/09/2013 9 chlorthalidone (HYGROTEN) 25 MG tablet Take 1 tablet by mouth daily. 04/09/2014 6 desvenlafaxine (PRISTIQ) 100 MG 24 hr tablet Take 1 tablet by mouth daily. 01/06/2014 7 Diclofenac Potassium (ZIPSOR) 25 MG capsule Take 1 capsule by mouth. Up to four times daily 09/18/2013 6 doxazosin (CARDURA) 2 MG tablet Take 1.5 mg by mouth. Take 1.5 tablets daily 07/25/2013 6 estradiol (ESTRACE VAGINAL) 0.1 MG/GM vaginal cream Insert into the vagina. 1 Applicatorfull at bedtime for one week, then 1 applicator 3 nights a week for a week, then once weekly 05/07/2015 7 lidocaine (LIDODERM) 5 % Apply 1 patch topically. To the affected area and leave in place for 12 hours, then remove and leave off for 12 hours 10/08/2013 8 metaxalone (SKELAXIN) 800 MG tablet Take by mouth. Take 1/2 tablet three times daily as needed 05/14/2014 6 omeprazole (PriLOSEC) 20 MG capsule Take 1 capsule by mouth daily. 07/06/2015 6 topiramate (TOPAMAX) 50 MG tablet Take 1 tablet by mouth 2 (two) times a day. 04/07/2014 6 traMADol (ULTRAM) 50 MG tablet Take 1-2 tablets by mouth every 6 (six) hours as needed. 02/16/2015 6 traZODone (DESYREL) 50 MG tablet Take 1-2 tablets by mouth at night as needed. 09/16/2012 6 documented as of this encounter Plan of Treatment Upcoming Encounters Date Type Department Care Team (Late st Contact Info) Description 03/13/2024 2:45 PM EST Office Visit [facility] [address] [place] [address] [place] [address] Cristiano Ace MD [address] [facility] [address] [place] [address] documented as of this encounter Procedures Procedure Name Priority Date/Time Associated Diagnosis Comments XR SACROILIAC JOINTS 3+ VW Routine 07/20/2015 11:28 AM EDT documented in this encounter Results * XR sacroiliac joints 3+ vw (07/20/2015 11:28 AM EDT) Anatomical Region Laterality Modality Body, Spine, Pelvis N/A Radiographic Imaging 07/20/2015 11:2 8 AM EDT Narrative 07/20/2015 2:00 PM EDT EXAMINATION- XR SACROILIAC JOINTS 3 VIEWS INDICATION- M25.559 pain COMPARISON- NONE FINDINGS- 1. There is mild arthropathy in the SI joints without diastases and without erosion. 2. Some mild lucencies are seen over the mid left SI and the upper right sacral body but these are felt to represent bowel and fecal material and move off of the sacrum on the oblique views. Therefore, definite macro fracture or insufficiency fracture of the sacrum is not identified. 3. There is lumbosacral arthropathy diffusely. No other acute pelvic abnormalities are noted. IMPRESSION- ?? Lumbosacral and SI arthropathy is noted without evidence of osteolysis, diastases or evidence of definite acute fracture. D- ??07/20/2015 E- ??07/20/2015 ? Reading Radiologist- CRISTIANO HARRIS ? Releasing Radiologist- CRISTIANO HARRIS ? Released Date Time- 07/20/15 1400 ? Toe Sewer- Tr[place]in. Procedure Note Cristiano Myers MD - 07/20/2015 EXAMINATION- XR SACROILIAC JOINTS 3 VIEWS INDICATION- M25.559 pain COMPARISON- NONE FINDINGS- 1. There is mild arthropathy in the SI joints without diastases and without erosion. 2. Some mild lucencies are seen over the mid left SI and the upper right sacral body but these are felt to represent bowel and fecal material and move off of the sacrum on the oblique views. Therefore, definite macro fracture or insufficiency fracture of the sacrum is not identified. 3. There is lumbosacral arthropathy diffusely. No other acute pelvic abnormalities are noted. IMPRESSION- Lumbosacral and SI arthropathy is noted without evidence of osteolysis, diastases or evidence of definite acute fracture. D- 07/20/2015 E- 07/20/2015 Reading Radiologist- CRISTIANO HARRIS Releasing Radiologist- CRISTIANO HARRIS Released Date Time- 07/20/15 1400 Toe Sewer- Esther us Bebeto Adams MD [facility] ORDERA BLES Final Result documented in this encounter Visit Diagnoses Not on filedocumented in this encounter Care Teams Cylinder Sander Operator Relationship Specialty Start Date End Date Deepak Cortez MD PCP - General 12/31/14 12/12/16 documented as of this encounter
--- OUTSIDE RECORDS SUMMARY | 2024-02-20 09:17 | XMS_ITS | Encounter Summary ---
[facility] Address [address] [place] [address] Care Team Providers Care Loom Changer Name Role Phone Mari Cortez MD Primary Care Provider Unav ailable Encounter Details Date Type Department Care Team (Late st Contact Info) Description 12/14/2014 Office Visit Con[facility] [place] [address] Mari Cortez MD Social History [...] Sign Reading Time Taken Comments Blood Pressure 138/86 12/14/2014 10:37 AM EDT Pulse 76 12/14/2014 10:37 AM EDT Temperature 36.6 ??C (97.9 ??F) 12/14/2014 10:37 AM E DT Respiratory Rate - - Oxygen Saturation - - Inhaled Oxygen Concentration - - Weight 83.2 kg (183 lb 6.1 oz) 12/14/2014 10:37 AM EDT Height - - Body Mass Index 33.54 10/22/2014 6:42 AM EDT documented in this encounter Progress Notes * Mari Cortez MD - 12/14/2014 10:15 AM EDT Chief Complaint FU History of Present Illness HPI: She complains of confusion and being tired all the time and no energy. She states she was scheduled for a sleep study in the past. Had strep throat last weak and they told her she needed her tonsils out. She is not sure she wants to do that Review of Systems Complete-Female: Constitutional: no fever and no chills. Head and Face: no facial pain and no facial pressure. Active Problems 1. Backache (724.5) (M54.9) 2. Complication of device (996.70) (T85.9XXA) 3. Diabetes mellitus (250.00) (E11.9) ?? pre diabetes 4. Hip pain (719.45) (M25.559) 5. Lumbar herniated disc (722.10) (M51.26) 6. Lumbar radiculopathy (724.4) (M54.16) 7. Morbid obesity (278.01) (E66.01) 8. Spinal cord stimulator status (V45.89) (Z96.89) Past Medical History ?? History of Alopecia (704.00) (L65.9) ?? History of Anxiety (300.00) (F41.1) ?? History of Benign essential hypertension (401.1) (I10) ?? History of Colon polyps (211.3) (K63.5) ?? History of Colonoscopy (Fiberoptic) ?? History of Decreased libido (799.81) (R68.82) ?? History of Dizziness (780.4) (R42) ?? History of Encounter for long-term (current) use of medications (V58.69) (Z79.899) ?? History of diabetes mellitus (V12.29) (Z86.39) ?? History of hypertension (V12.59) (Z86.79) ?? History of mastoiditis (V12.09) (Z86.19) ?? History of migraine headaches (V12.49) (Z86.69) ?? History of urinary stone (V13.01) (Z87.442) ?? History of Hyperlipidemia (272.4) (E78.5) ?? History of Infection of kidney (590.9) (N15.9) ?? History of Insomnia (780.52) (G47.00) ?? History of Migraine headache (346.90) (G43.909) ?? History of Myofascial pain syndrome (729.1) (M79.1) ?? History of Palpitations (785.1) (R00.2) ?? History of reported Pap smear ?? History of Stress reaction, emotional (308.0) (F43.0) ?? History of Urinary incontinence (788.30) (R32) [...] TAKE 3 TABLETS EVERY NIGHT AT BEDTIME Lancets Miscellaneous USE DIRECTED. Lidocaine 5 % External Patch APPLY 1 [...] TABS Vitals Signs [Data Includes: Current Encounter] Temperature: 97.9 F Heart Rate: 76 Systolic: 138 Diastolic: 86 Weight: 183 lb 6 oz BMI Calculated: 33.54 BSA Calculated: 1.84 Physical Exam Complete Multi-System Exam (Brief): Constitutional General appearance: No acute distress, well appearing and well nourished. Eyes Conjunctiva and lids: No swelling, erythema or discharge. Ears, Nose, Mouth, and Throat External inspection of ears and nose: Normal. Oropharynx: Normal with no erythema, edema, exudate or lesions. Pulmonary Respiratory effort: No increased work of breathing or signs of respiratory distress. Auscultation of lungs: Clear to auscultation. Neck Neck: Supple, symmetric, trachea midline, no masses. Thyroid: Normal, no thyromegaly. Cardiovascular Auscultation of heart: Normal rate and rhythm, normal S1 and S2, without murmurs. Examination of extremities for edema and/or varicosities: Normal. Abdomen Abdomen: Non-tender, no masses. Liver and spleen: No hepatomegaly or splenomegaly. Musculoskeletal Gait and station: Normal. Psychiatric Orientation to person, place, and time: Normal. Mood and affect: Normal. Assessment 1. Diabetes mellitus (250.00) (E11.9) ?? pre diabetes 2. Fatigue (780.79) (R53.83) Plan Diabetes mellitus ?? CMP; Status:Hold For - Specimen Collection and/or Additional Processing; Requested for:[id number]; ?? Vitamin B12; Status:Hold For - Specimen Collection and/or Additional Processing; Requested for:[id number]; ?? Sleep Disorders Specialist Referral Physician Referral Consult Status: Need Information - Required information Requested for: [id number] Fatigue ?? CBC wo Diff; Status:Hold For - Specimen Collection and/or Additional Processing; Requested for:[id number]; ?? TSH; Status:Hold For - Specimen Collection and/or Additional Processing; Requested for:[id number]; End of Encounter Meds Medication Name Instruction Chlorthalidone 25 MG Oral Tablet TAKE 1 TABLET DAILY. Doxazosin Mesylate 1 MG Oral Tablet TAKE 3 TABLETS EVERY NIGHT AT BEDTIME Lancets Miscellaneous USE DIRECTED. Lidocaine 5 % External Patch APPLY 1 [...] any other NSAIDs. Patient Care Team Care Loom Changer Role Specialty Office Number [facility] Internal Medicine DAMIEN BERG Neurology HEATHER [facility] Pain Management Future Appointments Date/Time Provider Specialty Site 12/31/2014 09:00 AM Poli Chaudhry PA-C Neurosurgery [facility] OUT[facility] 12/31/2014 09:00 AM Damien Berg M.D. Neurosurgery [facility] 01/05/2015 06:30 AM Heather Adams M.D. Pain Management [facility] MARK Signatures Electronically signed by : Mari Cortez M.D.; Dec 14 2014 11:22AM EST (Author) documented in this encounter Plan of Treatment Upcoming Encounters Date Type Department Care Team (Late st Contact Info) Description 03/13/2024 2:45 PM EST Office Visit [facility] [address] [facility] [address] Pj Ace MD [address] [place] [address] documented as of this encounter Visit Diagnoses Not on filedocumented in this encounter Care Teams Loom Changer Relationship Specialty Start Date End Date Mari Cortez MD PCP - General 12/31/14 12/12/16 documented as of this encounter
--- OUTSIDE RECORDS SUMMARY | 2024-02-20 09:17 | XMS_ITS | Encounter Summary ---
[facility] [address] [place] [id number] Care Team Providers Care Transaction Advisory Services Manager Name Role Phone Deepak Cortez MD Primary Care Provider Unav ailable Encounter Details Date Type Department Care Team (Latest Contact Info) Description 05/07/2015 8:41 AM EST - 05/07/2015 11:59 PM [facility] Hospital Encounter [facility] DEPARTMENT [address] [place] [address] [phone] Deepak Cortez MD Discharge Disposition: Home or Self Care Social [...] three times daily as needed 05/14/2014 6 topiramate (TOPAMAX) 50 MG tablet Take [...] Visit [facility] [address] [place] [address] [place] [address] Pj Ace MD [address] [facility] [address] [place] [address] documented as of this encounter Procedures Procedure Name Priority Date/Time Associated Diagnosis Comments CBC (NO DIFF) Routine 05/07/2015 12:57 PM EST URINE CULTURE Routine 05/07/2015 12:57 PM EST HEMOGLOBIN A1C Routine 05/07/2015 12:57 PM EST LIPID PANEL Routine 05/07/2015 12:57 PM EST COMPREHENSIVE METABOLIC PANEL Routine 05/07/2015 12:57 PM EST documented in this encounter Results * Urine culture (05/07/2015 12:57 PM EST) Urine specimen (specimen) 05/07/2015 12:57 PM EST 05/07/2015 1:52 PM EST Comment:CLEAN CATCH URI Narrative [facility] - 05/09/2015 7:22 AM EST Specimen Type : Urine Specimen/Source: Urine/clean catch uri Collected: 05/07/2015 12:57 EST Status: Final ?Last Updated: 05/09/2015 07:22 EST ?Culture Result (Final) ?No Growth 2 Days us Deepak Cortez MD MICROBIOLOGY - GENERAL [place] Final Result Performing Organization Address [facility] Co de Phone Number [facility]
[address] [place] [address], * (ABNORMAL) Hemoglobin A1c (05/07/2015 12:57 PM EST) Hemoglobin A1C 6.8(H) 4.00 - 6.00 % [facility] Comment: The [place] [employer] recommends maintenance of Hemoglobin A1C at 7.0% or lower. Goals for Hemoglobin A1C reduction may need to be modified if hypoglycemia is a problem. Mean Bld Glu Estim. 144 mg/dL [facility] Blood specimen (specimen) 05/07/2015 12:57 PM EST 05/07/2015 1:52 PM EST Narrative [facility] - 05/07/2015 5:08 PM EST Specimen Type : Blood us Deepak Cortez MD LAB BLOOD ORDERABLES Final Result Performing Organization Address [facility]/ZIP Co de Phone Number [facility]
[address] [place] [address], * (ABNORMAL) Comprehensive metabolic panel (05/07/2015 12:57 PM EST) Glucose 118(H) 70 - 100 mg/dL [facility] BUN 20 9 - 23 mg/dL [facility] Creatinine 0.6 0.6 - 1.3 mg/dL [facility] Sodium 141 132 - 146 mmol/L [facility] Potassium 3.4(L) 3.5 - 5.5 mmol/L [facility] Chloride 100 99 - 109 mmol/L [facility] CO2 36(H) 20 - 31 mmol/L [facility] Calcium 10.8(H) 8.7 - 10.4 mg/dL [facility] Alkaline Phosphatase 127(H) 25 - 100 Units/L [facility] AST (SGOT) 27 0 - 33 Units/L [facility] ALT (SGPT) 38 7 - 40 Units/L [facility] Total Bilirubin 0.5 0.3 - 1.2 mg/dL [facility] Total Protein 7.3 5.7 - 8.2 g/dL [facility] Albumin 4.3 3.2 - 4.8 g/dL [facility] eGFR 101 ml/min/1.7 32 [facility] Comment: ?? National Kidney Foundation Guidelines ?Stage ? Description ?GFR ?1 ?Normal or High ? 90+ ?2 ?Mild decrease ? 60-89 ?3 ?Moderate decrease ?30-59 ?4 ?Severe decrease ?15-29 ?5 ?Kidney failure ?<15 Anion Gap 5 3 - 11 mmol/L [facility] Blood specimen (specimen) 05/07/2015 12:57 PM EST 05/07/2015 1:52 PM EST Narrative [facility] - 05/07/2015 4:14 PM EST Specimen Type : Blood Deepak Cortez MD LAB BLOOD ORDERABLES Final Result [facility]
[address] [place] [address], * (ABNORMAL) Lipid panel (05/07/2015 12:57 PM EST) Fasting? Yes - Y [facility] Total Cholesterol 285(H) 0 - 200 mg/dL [facility] Comment: ?? Cholesterol Reference Ranges: Desirable: ? less than 200 mg/dL Borderline: ?200-239 mg/dL High: ?greater than 239 mg/dL Triglycerides 251(H) 0 - 150 mg/dL [facility] Comment: Triglyceride Reference Ranges: Normal ? less than 150 mg/dL Borderline ?150-199 mg/dL High ? 200-499 mg/dL Very High ? greater than 499 mg/dL HDL Cholesterol 56 40 - 60 mg/dL [facility] Comment: HDL Cholesterol Reference Ranges: Low ? less than 40 mg/dL High ?greater than 59 mg/dL LDL Cholesterol 212(H) 0 - 130 mg/dL [facility] Comment: LDL Cholesterol Reference Ranges: Optimal ?less than 100 mg/dL Near Optimal ? 100-129 mg/dL Borderline ?130-159 mg/dL High ? 160-189 mg/dL Very High ? greater than 189 mg/dL Blood specimen (specimen) 05/07/2015 12:57 PM EST 05/07/2015 1:52 PM EST Narrative [facility] - 05/07/2015 4:14 PM EST Specimen Type : Blood Deepak Cortez MD LAB BLOOD ORDERABLES Final Result Performing Organization Address City/[facility] Co de Phone Number [facility]
[address] [place] [address], * CBC (No diff) (05/07/2015 12:57 PM EST) WBC 5.35 3.50 - 10.80 K/[facility] RBC 4.93 3.89 - 5.14 /[facility] Hemoglobin 14.8 11.5 - 15.5 g/dL [facility] Hematocrit 43.8 34.5 - 44.0 % [facility] MCV 88.8 80.0 - 99.0 fL [facility] MCH 30.0 27.0 - 31.0 pg [facility] MCHC 33.8 32.0 - 36.0 g/dL [facility] RDW-CV 12.8 11.3 - 14.5 % [facility] Platelets 231 150 - 450 K/[facility] Blood specimen (specimen) 05/07/2015 12:57 PM EST 05/07/2015 1:52 PM EST Narrative [facility] - 05/07/2015 3:58 PM EST Specimen Type : Blood Deepak Cortez MD LAB BLOOD ORDERABLES Final Result Performing Organization Address City/[facility]/ZIP Co de Phone Number [facility]
[address] [place] [address], documented in this encounter Visit Diagnoses Not on filedocumented in this encounter Care Teams Transaction Advisory Services Manager Relationship Specialty Start Date End Date Deepak Cortez MD PCP - General 12/31/14 12/12/16 documented as of this encounter
--- OUTSIDE RECORDS SUMMARY | 2024-02-20 09:17 | XMS_ITS | Encounter Summary ---
Author Organization [facility] yste Address [address] [place] [address] Care Team Providers Care Refractive Surgeon Name Role Phone Mari Cortez MD Primary Care Provider Unav ailable Encounter Details Date Type Department Care Team (Late st Contact Info) Description 10/22/2014 Office Visit Converted [facility] MEDICAL [facility] PAIN [facility]NAGEMENT [address] [address] Bebeto Adams MD [address] [facility] [address] [place] [address] Social History Tobacco Use Types Packs/Day Years Used Date Smoking Tobacco: Never Assessed Comments Unknown Sex and Gender Information Value Date Recorded Sex Assigned at Not on file Legal Sex Female 10:25 AM EDT Gender Identity Not on file Sexual Orientation Not on file documented as of this encounter Last Filed Vital Signs Vital Sign Reading Time Taken Comments Blood Pressure 142/82 10/22/2014 6:42 AM EDT Pulse 85 10/22/2014 6:42 AM EDT Temperature 36.2 ??C (97.1 ??F) 10/22/2014 6:42 AM ED T Respiratory Rate 18 10/22/2014 6:42 AM EDT Oxygen Saturation 96% 10/22/2014 6:42 AM EDT Inhaled Oxygen Concentration - - Weight 83.5 kg (183 lb 15.9 oz) 10/22/2014 6:42 AM EDT Height 157.5 cm (5' 2 ) 10/22/2014 6:42 AM EDT Body Mass Index 33.65 10/22/2014 6:42 AM EDT documented in this encounter Progress Notes * Bebeto Adams - 10/22/2014 6:30 AM EDT Chief Complaint I was doing well until I did too much working in my yard weeding and played volleyball last week. I was using my spinal cord stimulator all the time and it was helping a lot. History of Present Illness Mrs. Daly returns today for evaluation of possible malfunction of her spinal cord stimulator device and spinal cord stimulator reprogramming. She underwent implantation of a spinal cord stimulator device with ophthalmic surgical assistant placement on 11/10/[address] Damien Berg. Patient was last seen on 05/14/2014, for spinal cord stimulator reprogramming. Patient reports that she experienced more than 80% pain relief of her left buttock pain and lower extremity pain with the use of her spinal cord stimulator device. Over the last four days, patient reports that she did not perceive stimulation, and therefore, she started experiencing her chronic left hip pain and gluteal pain. Pain level 8/10. Patient complains of left sided lower back pain radiating to the left buttock. Pain level ranges from 2/10 to 9/10, without the the use of her stimulator device. She reports that she had been using her spinal cord stimulator device at all times, as instructed. Patient denies any new bladder or bowel problems. She denies any new health concerns. [facility] report #[id number], appropriate. Diagnostic Studies: X-ray of the pelvis on 01/06/2014, revealed mild sclerosis about the right sacroiliac joint. X-ray of the thoracic spine on 12/09/2013, revealed minor cord stimulator electrodes positioned at T7. The thoracic spine otherwise demonstrates mild degenerative change without acute abnormality. Review of Systems Constitutional: fatigue. Head and Face: negative. Eyes: blurred vision. ENT: hearing loss. Cardiovascular: negative. Respiratory: negative. Gastrointestinal: negative. Genitourinary: negative. Musculoskeletal: diffuse joint pain, generalized muscle aches, back pain, joint swelling, joint stiffness and limping. Integumentary and Breasts: negative. Neurological: dizziness, tingling and Left lower extremity tingling The patient presents with complaints of leg weakness (Left Lower extremity ). Psychiatric: anxiety. Endocrine: hot flashes and night sweats. Hematologic and Lymphatic: negative. Active Problems 1. Backache (724.5) 2. Complication of device (996.70) 3. Diabetes mellitus (250.00) ?? pre diabetes 4. Hip pain (719.45) 5. Lumbar herniated disc (722.10) 6. Lumbar radiculopathy (724.4) 7. Morbid obesity (278.01) Past Medical History ?? History of Alopecia (704.00) ?? History of Anxiety (300.00) ?? History of Benign essential hypertension (401.1) ?? History of Colon polyps (211.3) ?? History of Colonoscopy (Fiberoptic) ?? History of Decreased libido (799.81) ?? History of Dizziness (780.4) ?? History of Encounter for long-term (current) use of medications (V58.69) ?? History of diabetes mellitus (V12.29) ?? History of hypertension (V12.59) ?? History of mastoiditis (V12.09) ?? History of migraine headaches (V12.49) ?? History of urinary stone (V13.01) ?? History of Hyperlipidemia (272.4) ?? History of Infection of kidney (590.9) ?? History of Insomnia (780.52) ?? History of Migraine headache (346.90) ?? History of Myofascial pain syndrome (729.1) ?? History of Palpitations (785.1) ?? History of Reported Pap Smear ?? History of Stress reaction, emotional (308.0) ?? History of Urinary incontinence (788.30) ?? History of Urinary tract infection (599.0) ?? History of Visit for screening mammogram (V76.12) ?? 11/27/2008 ?? History of Vitamin d deficiency (268.9) Surgical History ?? History of Bladder Surgery ?? History of Elbow Surgery ?? History of Lower Back Surgery ?? History of Spinal Stereotaxis Stimulation Of Cord ?? History of Total Abdominal Hysterectomy ?? BSO Family History ?? Family history of hypertension (V17.49) ?? Family history of peripheral vascular disease (V17.49) ?? Family history of Lung disease, bullous ?? Family history of Type 2 Diabetes Mellitus Social History ?? Caffeine Use ?? Marital History - Currently ?? History of Marital History - (V61.03) ?? Never Drank Alcohol ?? Never smoked tobacco Current Meds Medication Name Instruction Chlorthalidone 25 [...] Vitals Signs [Data Includes: Current Encounter] Temperature: 97.1 F Heart Rate: 85 Respiration: 18 Systolic: 142 Diastolic: 82 Height: 5 ft 2 in Weight: 184 lb BMI Calculated: 33.65 BSA Calculated: 1.84 O2 Saturation: 96 Physical Exam Constitutional General appearance: No acute distress, well appearing and well nourished. Morbidly obese and well hydrated. Head and Face Head and face: Normal. [...] varicosities: Normal. Abdomen Abdomen: Non-tender, no masses. Musculoskeletal Gait and station: Normal. Digits and nails: Normal without clubbing or cyanosis. The range of motion of the lumbar spine is improved. Lumbar facet joint loading maneuvers are negative. Danny and Gaenslen's tests are negative. Palpation of the left gluteal bursa does not reproduce pain. The range of motion of the hip joints is full and without pain. Muscle tone is normal. Left piriformis maneuvers are negative at this time. Muscle strength/tone: Normal. Skin Skin and subcutaneous tissue: Normal without rashes or lesions. Her surgical wounds are well-healedwithout redness, drainage, or fluid accumulation. There is complete epithelization of both surgicalwounds. Neurologic Cranial nerves: Cranial nerves II-XII intact. Cortical function: Normal mental status. Reflexes: 2+ and symmetric. Deep tendon reflexes: 2+ right biceps, 2+ left biceps, 2+ right patella, 2+ left patella, 2+ right ankle jerk and 2+ left ankle jerk. Superficial/Primitive Reflexes: primitive reflexes were absent. Straight leg raising test is negative. Femoral stretch sign is negative. No clonus or Babinski. Romberg's is negative. Sensation: No sensory loss. Sensory exam: intact to light touch, intact pain and temperature sensation, intact vibration sensation and normal proprioception. Coordination: Normal finger to nose and heel to kennedy. Coordination: normal balance and negative Romberg's sign. Psychiatric Judgment and insight: Normal. Orientation to person, place, and time: Normal. Recent and remote memory: Intact. Mood and affect: Normal. Procedure Analysis of the spinal cord stimulator device with complex spinal cord stimulator reprogramming Analysis of the spinal cord stimulator device reveals that the patient has used her stimulator device 99% of the time for a total of 1726 hours since her last reprogramming, and 4509 lifetime hours. Patient uses group A 100% of the time. Analysis of impedance reveals that all electrodes are out of the normal range. The system was tested at 0.5 V, 1 V, 1.5 V, 3 V, and the results were all the same. Electrode polarities, pulse rate, pulse width, and amplitudes where adjusted, as well as cycling, and different programs were tried and failed. Patient did not experience stimulation despite numerous attempts. Therefore, the existent programs were not changed: Program A1: Electrode polarities: 13+, 15- Amplitudes programmed: 2.7 V (0.1-9.9) Pulse width: 440 mcs Pulse Rate: 420 Hz Program C1: Electrode polarities: 7+, 15- Amplitudes programmed: 9.4 V (0-10.5) Pulse width: 300 mcs Pulse Rate: 60 Hz Program C2: Electrode polarities:12-, 14-, 15+ Amplitudes programmed: 4.8 V (0-10.5) Pulse width: 60 mcs Pulse Rate: 300 Hz Program C3: Electrode polarities: 11+, 12-, 13-, 14+ Amplitudes programmed: 5.9 V (0-10.5) Pulse width: 300 mcs Pulse Rate: 60 Hz Time spent reprogrammin minutes. A copy of the telemetry report was scanned in the patient's chart Assessment 1. Spinal cord stimulator device malfunction likely related to lead fracture and internal pulse generator malfunction 2. Lumbar arachnoiditis; pain was well controlled and function was remarkably improved with spinal cord stimulation 3. Lumbar postlaminectomy syndrome 4. History of left piriformis muscle syndrome/myofascial 5. History of recurrent left sacroiliac joint dysfunction 6. History of refractory left gluteal bursitis 7. Lumbar facet arthropathy 8. Moderate obesity 9. Kgw-hxaqova-cgsslwcca diabetes 10. Insomnia 11. Deconditioning, significantly improved Plan 1. Referral to Dr. Berg in consultation for revision of patient's spinal cord stimulator device. X-rays obtained today did not reveal a clear site of ophthalmic surgical assistant fracture or disconnection at the IPG site. Due to previous difficulties programming this Medtronic system, I have recommended explantation of the current system and replacement with a [employer] Matt system with ophthalmic surgical assistant Penta to covert a wider area and IPG Prot?g?. 2. Follow-up with Dr. Diogenes Neville for cognitive behavioral therapy and biofeedback 3. Start aqua therapy 4. Pharmacological measures: a. Continue topiramate 50 mg twice daily b. Continue trazodone 50-100 mg each bedtime for insomnia c. Continue Zipsor 25 mg 4 times a day when necessary for mild to moderate acute breakthrough pain.I have instructed the patient not to take any other NSAIDs. d. Continue Tramadol 50 mg 1-2 tablets up to 4 times daily as needed for severe breakthrough pain e. Continue Lidocaine patches f. Continue Skelaxin 800 mg, take 1/2 to 1 three times daily as needed for muscle spasms. 5. Follow-up at [facility]. 6. I have advised the patient to apply ice packs for 10-15 minutes followed by heating pads into the left gluteal/piriformis muscle region. In addition, I spent approximately 10 minutes instructing the patient on specific stretching exercises for treatment of her recurrent piriformis syndrome. 7. The patient has been instructed to contact my office with any questions or difficulties. The patient understands the plan and agrees to proceed accordingly. cc: Damien Berg M.D. Leidy Robertson M.D. End of Encounter Meds Medication Name Instruction [...] any other NSAIDs. Patient Care Team Care Refractive Surgeon Role Specialty Office Number [facility] DAMIEN BERG Neurology [facility] Future Appointments Date/Time Provider Specialty Site 11/09/2014 12:30 PM Mari Cortez M.D. Internal Medicine [facility] [place] 01/05/2015 06:30 AM Bebeto Adams M.D. Pain Management [facility] PAIN [facility]NAG[facility] Signatures Electronically signed by : Bebeto Adams M.D.; Oct 22 2014 3:51PM EST (Author) documented in this encounter Miscellaneous Notes * Letter - Bebeto Adams - 10/22/2014 6:30 AM EDT Per your request, I saw GERTRUDIS DALY today in consultation for the assessment listed below. Chief Complaint I was doing well until I did too much working in my yard weeding and played volleyball last week. I was using my spinal cord stimulator all the time and it was helping a lot. History of Present Illness Mrs. Daly returns today for evaluation of possible malfunction of her spinal cord stimulator device and spinal cord stimulator reprogramming. She underwent implantation of a spinal cord stimulator device with ophthalmic surgical assistant placement on 11/10/[address] Damien Berg. Patient was last seen on 05/14/2014, for spinal cord stimulator reprogramming. Patient reports that she experienced more than 80% pain relief of her left buttock pain and lower extremity pain with the use of her spinal cord stimulator device. Over the last four days, patient reports that she did not perceive stimulation, and therefore, she started experiencing her chronic left hip pain and gluteal pain. Pain level 8/10. Patient complains of left sided lower back pain radiating to the left buttock. Pain level ranges from 2/10 to 9/10, without the the use of her stimulator device. She reports that she had been using her spinal cord stimulator device at all times, as instructed. Patient denies any new bladder or bowel problems. She denies any new health concerns. [facility] report #[id number], appropriate. Diagnostic Studies: X-ray of the pelvis on 01/06/2014, revealed mild sclerosis about the right sacroiliac joint. X-ray of the thoracic spine on 12/09/2013, revealed minor cord stimulator electrodes positioned at T7. The thoracic spine otherwise demonstrates mild degenerative change without acute abnormality. Review of Systems Constitutional: fatigue. Head and Face: negative. Eyes: blurred vision. ENT: hearing loss. Cardiovascular: negative. Respiratory: negative. Gastrointestinal: negative. Genitourinary: negative. Musculoskeletal: diffuse joint pain, generalized muscle aches, back pain, joint swelling, joint stiffness and limping. Integumentary and Breasts: negative. Neurological: dizziness, tingling and Left lower extremity tingling The patient presents with complaints of leg weakness (Left Lower extremity ). Psychiatric: anxiety. Endocrine: hot flashes and night sweats. Hematologic and Lymphatic: negative. Active Problems 1. Backache (724.5) 2. Complication of device (996.70) 3. Diabetes mellitus (250.00) ?? pre diabetes 4. Hip pain (719.45) 5. Lumbar herniated disc (722.10) 6. Lumbar radiculopathy (724.4) 7. Morbid obesity (278.01) Past Medical History ?? History of Alopecia (704.00) ?? History of Anxiety (300.00) ?? History of Benign essential hypertension (401.1) ?? History of Colon polyps (211.3) ?? History of Colonoscopy (Fiberoptic) ?? History of Decreased libido (799.81) ?? History of Dizziness (780.4) ?? History of Encounter for long-term (current) use of medications (V58.69) ?? History of diabetes mellitus (V12.29) ?? History of hypertension (V12.59) ?? History of mastoiditis (V12.09) ?? History of migraine headaches (V12.49) ?? History of urinary stone (V13.01) ?? History of Hyperlipidemia (272.4) ?? History of Infection of kidney (590.9) ?? History of Insomnia (780.52) ?? History of Migraine headache (346.90) ?? History of Myofascial pain syndrome (729.1) ?? History of Palpitations (785.1) ?? History of Reported Pap Smear ?? History of Stress reaction, emotional (308.0) ?? History of Urinary incontinence (788.30) ?? History of Urinary tract infection (599.0) ?? History of Visit for screening mammogram (V76.12) ?? 11/27/2008 ?? History of Vitamin d deficiency (268.9) Surgical History ?? History of Bladder Surgery ?? History of Elbow Surgery ?? History of Lower Back Surgery ?? History of Spinal Stereotaxis Stimulation Of Cord ?? History of Total Abdominal Hysterectomy ?? BSO Family History ?? Family history of hypertension (V17.49) ?? Family history of peripheral vascular disease (V17.49) ?? Family history of Lung disease, bullous ?? Family history of Type 2 Diabetes Mellitus Social History ?? Caffeine Use ?? Marital History - Currently ?? History of Marital History - (V61.03) ?? Never Drank Alcohol ?? Never smoked tobacco Current Meds Medication Name Instruction Chlorthalidone 25 [...] Vitals Signs [Data Includes: Current Encounter] Temperature: 97.1 F Heart Rate: 85 Respiration: 18 Systolic: 142 Diastolic: 82 Height: 5 ft 2 in Weight: 184 lb BMI Calculated: 33.65 BSA Calculated: 1.84 O2 Saturation: 96 Physical Exam Constitutional General appearance: No acute distress, well appearing and well nourished. Morbidly obese and well hydrated. Head and Face Head and face: Normal. [...] varicosities: Normal. Abdomen Abdomen: Non-tender, no masses. Musculoskeletal Gait and station: Normal. Digits and nails: Normal without clubbing or cyanosis. The range of motion of the lumbar spine is improved. Lumbar facet joint loading maneuvers are negative. Danny and Gaenslen's tests are negative. Palpation of the left gluteal bursa does not reproduce pain. The range of motion of the hip joints is full and without pain. Muscle tone is normal. Left piriformis maneuvers are negative at this time. Muscle strength/tone: Normal. Skin Skin and subcutaneous tissue: Normal without rashes or lesions. Her surgical wounds are well-healedwithout redness, drainage, or fluid accumulation. There is complete epithelization of both surgicalwounds. Neurologic Cranial nerves: Cranial nerves II-XII intact. Cortical function: Normal mental status. Reflexes: 2+ and symmetric. Deep tendon reflexes: 2+ right biceps, 2+ left biceps, 2+ right patella, 2+ left patella, 2+ right ankle jerk and 2+ left ankle jerk. Superficial/Primitive Reflexes: primitive reflexes were absent. Straight leg raising test is negative. Femoral stretch sign is negative. No clonus or Babinski. Romberg's is negative. Sensation: No sensory loss. Sensory exam: intact to light touch, intact pain and temperature sensation, intact vibration sensation and normal proprioception. Coordination: Normal finger to nose and heel to kennedy. Coordination: normal balance and negative Romberg's sign. Psychiatric Judgment and insight: Normal. Orientation to person, place, and time: Normal. Recent and remote memory: Intact. Mood and affect: Normal. Procedure Analysis of the spinal cord stimulator device with complex spinal cord stimulator reprogramming Analysis of the spinal cord stimulator device reveals that the patient has used her stimulator device 99% of the time for a total of 1726 hours since her last reprogramming, and 4509 lifetime hours. Patient uses group A 100% of the time. Analysis of impedance reveals that all electrodes are out of the normal range. The system was tested at 0.5 V, 1 V, 1.5 V, 3 V, and the results were all the same. Electrode polarities, pulse rate, pulse width, and amplitudes where adjusted, as well as cycling, and different programs were tried and failed. Patient did not experience stimulation despite numerous attempts. Therefore, the existent programs were not changed: Program A1: Electrode polarities: 13+, 15- Amplitudes programmed: 2.7 V (0.1-9.9) Pulse width: 440 mcs Pulse Rate: 420 Hz Program C1: Electrode polarities: 7+, 15- Amplitudes programmed: 9.4 V (0-10.5) Pulse width: 300 mcs Pulse Rate: 60 Hz Program C2: Electrode polarities:12-, 14-, 15+ Amplitudes programmed: 4.8 V (0-10.5) Pulse width: 60 mcs Pulse Rate: 300 Hz Program C3: Electrode polarities: 11+, 12-, 13-, 14+ Amplitudes programmed: 5.9 V (0-10.5) Pulse width: 300 mcs Pulse Rate: 60 Hz Time spent reprogrammin minutes. A copy of the telemetry report was scanned in the patient's chart Assessment 1. Spinal cord stimulator device malfunction likely related to lead fracture and internal pulse generator malfunction 2. Lumbar arachnoiditis; pain was well controlled and function was remarkably improved with spinal cord stimulation 3. Lumbar postlaminectomy syndrome 4. History of left piriformis muscle syndrome/myofascial 5. History of recurrent left sacroiliac joint dysfunction 6. History of refractory left gluteal bursitis 7. Lumbar facet arthropathy 8. Moderate obesity 9. Bmu-qrskkgf-bekpptevk diabetes 10. Insomnia 11. Deconditioning, significantly improved Plan 1. Referral to Dr. Berg in consultation for revision of patient's spinal cord stimulator device. X-rays obtained today did not reveal a clear site of ophthalmic surgical assistant fracture or disconnection at the IPG site. Due to previous difficulties programming this Medtronic system, I have recommended explantation of the current system and replacement with a [employer] Matt system with ophthalmic surgical assistant Penta to covert a wider area and IPG Prot?g?. 2. Follow-up with Dr. Diogenes Neville for cognitive behavioral therapy and biofeedback 3. Start aqua therapy 4. Pharmacological measures: a. Continue topiramate 50 mg twice daily b. Continue trazodone 50-100 mg each bedtime for insomnia c. Continue Zipsor 25 mg 4 times a day when necessary for mild to moderate acute breakthrough pain.I have instructed the patient not to take any other NSAIDs. d. Continue Tramadol 50 mg 1-2 tablets up to 4 times daily as needed for severe breakthrough pain e. Continue Lidocaine patches f. Continue Skelaxin 800 mg, take 1/2 to 1 three times daily as needed for muscle spasms. 5. Follow-up at [facility]. 6. I have advised the patient to apply ice packs for 10-15 minutes followed by heating pads into the left gluteal/piriformis muscle region. In addition, I spent approximately 10 minutes instructing the patient on specific stretching exercises for treatment of her recurrent piriformis syndrome. 7. The patient has been instructed to contact my office with any questions or difficulties. The patient understands the plan and agrees to proceed accordingly. cc: Damien Berg M.D. Leidy Robertson M.D. End of Encounter Meds Medication Name Instruction [...] any other NSAIDs. Patient Care Team Care Refractive Surgeon Role Specialty Office Number [facility] BERG Neurology [facility] Future Appointments Date/Time Provider Specialty Site 11/09/2014 12:30 PM Mari Cortez M.D. Internal Medicine [facility] [place] 01/05/2015 06:30 AM Bebeto Adams M.D. Pain Management [facility]EMENT [facility] Thank you very much for allowing me to participate in the care of this patient. If you have any questions, please do not hesitate to contact me. Signatures Electronically signed by : Bebeto Adams M.D.; Oct 22 2014 3:51PM EST (Author) documented in this encounter Plan of Treatment Upcoming Encounters Date Type Department Care Team (Late st Contact Info) Description 03/13/2024 2:45 PM EST Office Visit [facility] [address] [facility] [place] [address] [place] [address] Pj Ace MD [address] [facility] [address] [place] [address] documented as of this encounter Visit Diagnoses Not on filedocumented in this encounter Care Teams Refractive Surgeon Relationship Specialty Start Date End Date Mari Cortez MD PCP - General 12/31/14 12/12/16 documented as of this encounter
--- OUTSIDE RECORDS SUMMARY | 2024-02-20 09:17 | XMS_ITS | Encounter Summary ---
[facility] Address [address] [place] [address] Care Team Providers Care Music Video Producer Name Role Phone Mari Cortez MD Primary Care Provider Unav ailable Encounter Details Date Type Department Care Team (Late st Contact Info) Description 05/25/2015 Office Visit Converted [facility] [address] [phone] Bebeto Lainez MD [address] [facility] [address] [place] [address] Social History Tobacco Use Types Packs/Day Years Used Date Smoking Tobacco: Never Assessed Comments Unknown Sex and Gender Information Value Date Recorded Sex Assigned at Not on file Legal Sex Female 10:25 AM EDT Gender Identity Not on file Sexual Orientation Not on file documented as of this encounter Last Filed Vital Signs Vital Sign Reading Time Taken Comments Blood Pressure 146/88 05/25/2015 2:05 PM EST Pulse 98 05/25/2015 2:05 PM EST Temperature - - Respiratory Rate 18 05/25/2015 2:05 PM EST Oxygen Saturation 96% 05/25/2015 2:05 PM EST Inhaled Oxygen Concentration - - Weight 81.4 kg (179 lb 8 oz) 05/25/2015 2:05 PM EST Height - - Body Mass Index 32.83 04/27/2015 1:41 PM EST documented in this encounter Progress Notes * Bebeto Lainez MD - 05/25/2015 2:00 PM EST Chief Complaint I need to have my stimulator reprogrammed to cover my left hip. History of Present Illness Ms. Daly returns to the clinic for evaluation of left hip pain, which started after her last physical therapy visit and also for possible reprogramming of her [employer] spinal cord stimulator device. Patient underwent revision of her spinal cord stimulator device with Dr. Damien Berg on 12/31/2014. Patient originally had a [employer] spinal cord stimulator device implanted on 11/10/2013, which had to be replaced secondary to device failure. Patient has remained afebrile since her surgery. Patient reports more than 90% pain relief of her chronic pain with the use of her [employer] stimulator device. Unfortunately, last weekend, she started experiencing left hip and left gluteal pain after her physical therapy session. Patient reports that the pain was so intense that she was unable to walk. Her left hip/left buttock pain is rated as 8/10. Her neurogenic claudication has remarkably improved since implantation of her spinal cord stimulator device. In addition, she experiences chronic occipital headaches that radiate to the frontal region and typically 3 hours. Patient also has a history of chronic migraine headaches. She continues using ice and heat. Patient denies any new bladder or bowel problems. She denies any new health concerns. In terms of medication for painshe uses Salonpas patches, Skelaxin, Tramadol, Tylenol, and Zipsor. GENE report #[id number], appropriate. Diagnostic Studies: X-ray of the pelvis [...] muscle aches, back pain, joint swelling, joint stiffness, limping and shoulder pain. Integumentary and Breasts: negative. Neurological: headache, dizziness, tingling and Left lower extremity tingling The patient presents with complaints of leg weakness (Left Lower extremity ). Psychiatric: anxiety. Endocrine: hot flashes and night sweats. Hematologic and Lymphatic: negative. Active Problems 1. Chronic pain (338.29) (G89.29) 2. Depression (311) (F32.9) 3. Diabetes mellitus (250.00) (E11.9) ?? pre diabetes 4. Fatigue (780.79) (R53.83) 5. Hip pain (719.45) (M25.559) 6. Hyperlipidemia (272.4) (E78.5) 7. Morbid obesity (278.01) (E66.01) 8. Neuropathic pain (729.2) (M79.2) Past Medical History [...] Surgery ?? History of Complete Colonoscopy ?? History of Elbow Surgery ?? History [...] 5. Hydrochlorothiazide TABS 6. Hyzaar TABS 7. Latex Exam Gloves MISC 8. Losartan Potassium TABS 9. MetFORMIN HCl TABS 10. Norvasc TABS 11. Penicillins 12. Spironolactone TABS Denied 13. Naproxen TABS Vitals Signs [Data Includes: Current Encounter] Heart Rate: 98 Respiration: 18 Systolic: 146 Diastolic: 88 Weight: 179 lb 8 oz BMI Calculated: 32.83 BSA Calculated: 1.83 O2 Saturation: 96 Physical Exam Constitutional General [...] are negative. Danny and Gaenslen's tests are negative on the right, positive on the left. Palpation of the left gluteal bursa reproduced pain. The rangeof motion of the hip joints is full and without pain. Muscle tone is normal. Left piriformis maneuvers are negative at this time. Muscle strength/tone: Normal. Skin Skin and subcutaneous tissue: Normal without rashes or lesions. Her surgical wounds are well-healedwithout redness, drainage, or fluid accumulation. There is complete epithelization. Neurologic Cranial nerves: Cranial nerves II-XII intact. [...] her stimulator device for a total of 620 hours since last reprogramming, and 3332 lifetime hours. Analysis of impedancereveals normal impedance for all contacts. Spinal cord stimulator device was reprogrammed by adjusting electrode polarities, pulse width, pulse rate, and amplitudes, by creating 4 programs, as follows; Program FOUR (best program): Electrode polarities: 1+, 2-, 4+, 5+, 6- Amplitudes programmed: 4.5 mA (0-25.5) Pulse width: 400 mcs Pulse Rate: 70 Hz Time spent reprogrammin minutes. A copy of the telemetry report was scanned in the patient's chart Assessment 1. Recurrent left sacroiliac joint dysfunction 2. Recurrent left gluteal bursitis 3. Lumbar arachnoiditis; excellent analgesic and functional response to spinal cord stimulation 4. Lumbar postlaminectomy syndrome 5. History of left piriformis muscle syndrome/myofascial 6. Lumbar facet arthropathy/lumbar spondylosis without myelopathy 7. Moderate obesity 8. Obstructive sleep apnea 9. Qix-pwwghez-cblwflqgx diabetes 10. Insomnia 11. Migraine headaches 12. Deconditioning, significantly improved Plan 1. Follow-up in four weeks for possible spinal cord stimulator reprogramming. If her left sacroiliac joint dysfunction and left gluteal bursitis do not resolve with conservative measures, then, we will proceed with left sacroiliac joint injection and left gluteal bursa injection under ultrasound and fluoroscopy guidance. 2. Long-term rehabilitation efforts: a. Continue comprehensive physical therapy program b. Start an independent exercise program based on aqua therapy c. Follow-up at [facility] d. Follow-up with Dr. Diogenes Neville for cognitive behavioral therapy and biofeedback 3. Pharmacological measures, as follows: a. Continue topiramate 50 mg twice daily b. Continue trazodone 50-100 mg each bedtime for insomnia c. Continue Zipsor 25 mg 4 times a day when necessary for mild to moderate acute breakthrough pain.I have instructed the patient not to take any other NSAIDs d. Continue weaning tramadol 50 mg from 1 tablet twice a day as needed for severe breakthrough pain, then once a day for another week, then, discontinue tramadol e. Continue lidocaine patches f. Continue Skelaxin 800 mg, take 1/2 to 1 three times daily as needed for muscle spasms 4. Medication reconciliation has been performed in accordance to patient?s records. Patient has completed a SOAPP questionnaire and ORT questionnaire (revealing low risk). Gene reports have been reviewed and appropriate. 5. Patient has been screened for tobacco use: Current tobacco non-user 6. Follow-up with Dr. Lozano to initiate CPAP therapy for her obstructive sleep apnea since this could be the contributing to the development of her recurrent migraine headaches 7. The patient has been instructed to [...] any other NSAIDs. Patient Care Team Care Music Video Producer Role Specialty Office Number Tanya MARI CORTEZ Internal Medicine DAMIEN BERG Neurology BEBETO Kramer Pain Management BEBETO LAINEZ Pain Management Future Appointments Date/Time Provider Specialty Site 07/06/2015 02:00 PM Bebeto Lainez M.D. Pain Management [facility] 11/02/2015 10:30 AM Mari Cortez M.D. Internal Medicine [facility] [place] Signatures Electronically signed by : Bebeto Lainez M.D.; May 25 2015 6:43PM EST (Author) documented in this encounter Miscellaneous Notes * Letter - Bebeto Lainez MD - 05/25/2015 2:00 PM EST Per your request, I saw GERTRUDIS DALY today in consultation for the assessment listed below. Chief Complaint I need to have my stimulator reprogrammed to cover my left hip. History of Present Illness Ms. Daly returns to the clinic for evaluation of left hip pain, which started after her last physical therapy visit and also for possible reprogramming of her [employer] spinal cord stimulator device. Patient underwent revision of her spinal cord stimulator device with Dr. Damien Berg on 12/31/2014. Patient originally had a [employer] spinal cord stimulator device implanted on 11/10/2013, which had to be replaced secondary to device failure. Patient has remained afebrile since her surgery. Patient reports more than 90% pain relief of her chronic pain with the use of her [employer] stimulator device. Unfortunately, last weekend, she started experiencing left hip and left gluteal pain after her physical therapy session. Patient reports that the pain was so intense that she was unable to walk. Her left hip/left buttock pain is rated as 8/10. Her neurogenic claudication has remarkably improved since implantation of her spinal cord stimulator device. In addition, she experiences chronic occipital headaches that radiate to the frontal region and typically 3 hours. Patient also has a history of chronic migraine headaches. She continues using ice and heat. Patient denies any new bladder or bowel problems. She denies any new health concerns. In terms of medication for painshe uses Salonpas patches, Skelaxin, Tramadol, Tylenol, and Zipsor. GENE report #[id number], appropriate. Diagnostic Studies: X-ray of the pelvis [...] muscle aches, back pain, joint swelling, joint stiffness, limping and shoulder pain. Integumentary and Breasts: negative. Neurological: headache, dizziness, tingling and Left lower extremity tingling The patient presents with complaints of leg weakness (Left Lower extremity ). Psychiatric: anxiety. Endocrine: hot flashes and night sweats. Hematologic and Lymphatic: negative. Active Problems 1. Chronic pain (338.29) (G89.29) 2. Depression (311) (F32.9) 3. Diabetes mellitus (250.00) (E11.9) ?? pre diabetes 4. Fatigue (780.79) (R53.83) 5. Hip pain (719.45) (M25.559) 6. Hyperlipidemia (272.4) (E78.5) 7. Morbid obesity (278.01) (E66.01) 8. Neuropathic pain (729.2) (M79.2) Past Medical History [...] Surgery ?? History of Complete Colonoscopy ?? History of Elbow Surgery ?? History [...] 5. Hydrochlorothiazide TABS 6. Hyzaar TABS 7. Latex Exam Gloves MISC 8. Losartan Potassium TABS 9. MetFORMIN HCl TABS 10. Norvasc TABS 11. Penicillins 12. Spironolactone TABS Denied 13. Naproxen TABS Vitals Signs [Data Includes: Current Encounter] Heart Rate: 98 Respiration: 18 Systolic: 146 Diastolic: 88 Weight: 179 lb 8 oz BMI Calculated: 32.83 BSA Calculated: 1.83 O2 Saturation: 96 Physical Exam Constitutional General [...] are negative. Danny and Gaenslen's tests are negative on the right, positive on the left. Palpation of the left gluteal bursa reproduced pain. The rangeof motion of the hip joints is full and without pain. Muscle tone is normal. Left piriformis maneuvers are negative at this time. Muscle strength/tone: Normal. Skin Skin and subcutaneous tissue: Normal without rashes or lesions. Her surgical wounds are well-healedwithout redness, drainage, or fluid accumulation. There is complete epithelization. Neurologic Cranial nerves: Cranial nerves II-XII intact. [...] her stimulator device for a total of 620 hours since last reprogramming, and 3332 lifetime hours. Analysis of impedancereveals normal impedance for all contacts. Spinal cord stimulator device was reprogrammed by adjusting electrode polarities, pulse width, pulse rate, and amplitudes, by creating 4 programs, as follows; Program FOUR (best program): Electrode polarities: 1+, 2-, 4+, 5+, 6- Amplitudes programmed: 4.5 mA (0-25.5) Pulse width: 400 mcs Pulse Rate: 70 Hz Time spent reprogrammin minutes. A copy of the telemetry report was scanned in the patient's chart Assessment 1. Recurrent left sacroiliac joint dysfunction 2. Recurrent left gluteal bursitis 3. Lumbar arachnoiditis; excellent analgesic and functional response to spinal cord stimulation 4. Lumbar postlaminectomy syndrome 5. History of left piriformis muscle syndrome/myofascial 6. Lumbar facet arthropathy/lumbar spondylosis without myelopathy 7. Moderate obesity 8. Obstructive sleep apnea 9. Vtg-fmtpfsb-dfiabtoiz diabetes 10. Insomnia 11. Migraine headaches 12. Deconditioning, significantly improved Plan 1. Follow-up in four weeks for possible spinal cord stimulator reprogramming. If her left sacroiliac joint dysfunction and left gluteal bursitis do not resolve with conservative measures, then, we will proceed with left sacroiliac joint injection and left gluteal bursa injection under ultrasound and fluoroscopy guidance. 2. Long-term rehabilitation efforts: a. Continue comprehensive physical therapy program b. Start an independent exercise program based on aqua therapy c. Follow-up at [facility] d. Follow-up with Dr. Diogenes Neville for cognitive behavioral therapy and biofeedback 3. Pharmacological measures, as follows: a. Continue topiramate 50 mg twice daily b. Continue trazodone 50-100 mg each bedtime for insomnia c. Continue Zipsor 25 mg 4 times a day when necessary for mild to moderate acute breakthrough pain.I have instructed the patient not to take any other NSAIDs d. Continue weaning tramadol 50 mg from 1 tablet twice a day as needed for severe breakthrough pain, then once a day for another week, then, discontinue tramadol e. Continue lidocaine patches f. Continue Skelaxin 800 mg, take 1/2 to 1 three times daily as needed for muscle spasms 4. Medication reconciliation has been performed in accordance to patient?s records. Patient has completed a SOAPP questionnaire and ORT questionnaire (revealing low risk). Gene reports have been reviewed and appropriate. 5. Patient has been screened for tobacco use: Current tobacco non-user 6. Follow-up with Dr. Lozano to initiate CPAP therapy for her obstructive sleep apnea since this could be the contributing to the development of her recurrent migraine headaches 7. The patient has been instructed to [...] any other NSAIDs. Patient Care Team Care Music Video Producer Role Specialty Office Number [facility] MARI CORTEZ Internal Medicine DAMIEN BERG Neurology [facility] Pain Management [facility]O LAINEZ Pain Management Future Appointments Date/Time Provider Specialty Site 07/06/2015 02:00 PM Bebeto Lainez M.D. Pain Management [facility] 11/02/2015 10:30 AM Mari Cortez M.D. Internal Medicine [facility] [place] Thank you very much for allowing me to participate in the care of this patient. If you have any questions, please do not hesitate to contact me. Signatures Electronically signed by : Bebeto Lainez M.D.; May 25 2015 6:43PM EST (Author) documented in this encounter Plan of Treatment Upcoming Encounters Date Type Department Care Team (Late st Contact Info) Description 03/13/2024 2:45 PM EST Office Visit [facility] [address] [facility] [place] [address] [place] [address] Pj Ace MD [address] [facility] [address] [facility] [address] [place] [address] documented as of this encounter Visit Diagnoses Not on filedocumented in this encounter Care Teams Music Video Producer Relationship Specialty Start Date End Date Mari Cortez MD PCP - General 12/31/14 12/12/16 documented as of this encounter
--- OUTSIDE RECORDS SUMMARY | 2024-02-20 09:17 | XMS_ITS | Encounter Summary ---
[facility] [address] [place] [address] Care Team Providers Care Welder Fitter Gas Name Role Phone Deepak Cortez MD Primary Care Provider Unav ailable Encounter Details Date Type Department Care Team (Late st Contact Info) Description 01/26/2015 Telephone Converted [facility] [address] [place] [address] Social History Tobacco Use Types Packs/Day Years Used Date Smoking Tobacco: Never Assessed Comments Unknown Sex and Gender Information Value Date Recorded Sex Assigned at Not on file Legal Sex Female 10:25 AM EDT Gender Identity Not on file Sexual Orientation Not on file documented as of this encounter Miscellaneous Notes * Telephone Encounter - Interface, See Report - 01/26/2015 12:55 PM EDT Message Recorded as Task Date: 01/12/2015 10:19 AM, Created By: Kalani Tadeo Task Name: Medication Question Assigned To: Kalani Tadeo Regarding Patient: GERTRUDIS DALY, Status: In Progress Comment: Kalani Tadeo - 12 Jan 2015 10:19 AM TASK CREATED requires pa for tid - Mike Dejesusy - 12 Jan 2015 10:56 AM TASK EDITED PT CALLED ASKING TO SPEAK WITH YOU Kalani Tadeo - 12 Jan 2015 11:53 AM TASK EDITED PA number is [phone] talked with patient in regards to this and will take care if pa needed for 1.5 daily Kalani Tadeo - 12 Jan 2015 11:54 AM TASK IN PROGRESS Kalani Tadeo 26 Jan 2015 12:55 PM TASK EDITED changed medication and no pa required Signatures Electronically signed by : Kalani Tadeo, ; Jan 26 2015 12:55PM EST (Author) documented in this encounter Plan of Treatment Upcoming Encounters Date Type Department Care Team (Late st Contact Info) Description 03/13/2024 2:45 PM EST Office Visit [facility] [address] [place] [address] [place] [address] Pj Ace MD [address] [facility] [address] [facility] [address] [place] [address] documented as of this encounter Visit Diagnoses Not on filedocumented in this encounter Care Teams Welder [employer] Relationship Specialty Start Date End Date Deepak Cortez MD PCP - General 12/31/14 12/12/16 documented as of this encounter
--- OUTSIDE RECORDS SUMMARY | 2024-02-20 09:17 | XMS_ITS | Encounter Summary ---
[facility] Address [address] [place] [address] Care Team Providers Care Press Hand Name Role Phone Deepak Cortez MD Primary Care Provider Unav ailable Encounter Details Date Type Department Care Team (Late st Contact Info) Description 12/31/2014 7:26 AM EDT - 01/01/2015 10:57 AM EDT Hospital Encounter [address] Damien Berg MD [address] [place] [address] Discharge Disposition: Home or Self Care Social [...] 4 to 6 hours as needed 12/09/2013 05/13/2018 chlorthalidone (HYGROTEN) 25 MG tablet Take 1 tablet by mouth daily. 04/09/2014 09/26/2015 desvenlafaxine (PRISTIQ) 100 MG 24 hr tablet Take 1 tablet by mouth daily. 01/06/2014 08/09/2016 Diclofenac Potassium (ZIPSOR) 25 MG capsule Take 1 capsule by mouth. Up to four times daily 09/18/2013 09/28/2015 doxazosin (CARDURA) 2 MG tablet Take 1.5 mg by mouth. Take 1.5 tablets daily 07/25/2013 08/17/2015 lidocaine (LIDODERM) 5 % Apply 1 patch topically. To the affected area and leave in place for 12 hours, then remove and leave off for 12 hours 10/08/2013 01/30/2018 metaxalone (SKELAXIN) 800 MG tablet Take by mouth. Take 1/2 tablet three times daily as needed 05/14/2014 09/15/2015 topiramate (TOPAMAX) 50 MG tablet Take 1 tablet by mouth 2 (two) times a day. 04/07/2014 10/19/2015 traZODone (DESYREL) 50 MG tablet Take 1-2 tablets by mouth at night as needed. 09/16/2012 01/20/2016 documented as of this encounter OR Notes * Op Note - Provider Not In System - 12/31/2014 12:00 AM EDT [place] [id number] OPERATIVE REPORT PATIENT NAME: GERTRUDIS DALY ROOM NUMBER: [id number] VISIT NUMBER: [id number] DATE OF : 1955 DATE OF OPERATION: 12/31/2014 ADMITTING PHYSICIAN/SURGEON: Damien Berg MD STUDENT SERVICES DEAN: Poli Chaudhry PA-C PREOPERATIVE DIAGNOSES: 1. Failed epidural spinal cord stimulator. 2. Chronic back and leg pain. POSTOPERATIVE DIAGNOSES: 1. Failed epidural spinal cord stimulator. 2. Chronic back and leg pain. PROCEDURES PERFORMED: 1. T9 laminectomy with neurolysis for placement St. Matt epidural spinal cord stimulator. 2. Removal of failed Medtronic spinal cord stimulator system. ANESTHESIA: General endotracheal. ESTIMATED BLOOD LOSS: Minimal. SPECIMEN: None. COMPLICATIONS: None. INDICATIONS FOR PROCEDURE: The patient is a 59-year-old woman with chronic back and leg pain. She has had previous lumbar surgical interventions. About a year ago, she had an epidural spinal cord stimulator placement that has never really worked particularly well. Recently, impedances were noted to be out of range, and there was felt to be a defect in the lead or system and, as such, she presents for removal of the failed epidural stimulator. We will replace the entire system with a new St. Matt system. The nature of the procedure, as well as the potential risks, complications and limitations have been well outlined to the patient and she has agreed to proceed with surgery. DESCRIPTION OF PROCEDURE: The patient was brought to the operating room and, while on her cart, general endotracheal anesthesia was achieved. She was then turned prone onto blanket rolls maintained longitudinally under her chest and abdomen. Special care was ensured to protect pressure points. Her upper buttocks and low and midback were prepared and draped in the usual fashion. She received preoperative antibiotics. The upper buttock incision on the right was opened. The old Medtronic IPG was removed from the pocket. The leads were severed with Brooks scissors. Her midback incision was opened. Underlying tissues were divided with cautery. The leads were pulled through from the buttock incision. The leads were followed down to the epidural region, using cautery and sharp dissection. The leads were exposed and the old lead was removed from the epidural space. Ultimately, it was necessary to pursue a T9 laminectomy to take down some granulation tissue. A dissector was utilized in the dorsal epidural space to free up adhesions. After multiple attempts, good midline placement of the new St. Matt Penta lead was achieved. The upper aspect of the lead was at the upper aspect of T7. Once again, it was largely in the midline. After positioning, this was secured in place with lead tethers. A shunt passer was utilized to pass the leads from the thoracic incision to the upper buttock incision and the Proteg' IPG was affixed to the leads. The system was interrogated. Lead impedances were all appropriate. The generator was placed into the old pocket and secured in place with 3-0 silk sutures. A bit of vancomycin powder was placed into the pocket and the subcutaneous tissues were closed in an interrupted fashion with 2-0 Vicryl suture. Some bone wax and FloSeal were utilized to control bleeding at the thoracic laminectomy site, where we had also taken down large amounts of granulation tissue. The wound was quite dry by the time of closure. Once again, a bit of vancomycin powder was sprinkled in the subfascial and suprafascial space. The fascia was reapproximated in interrupted fashion with 0-Vicryl suture. Subcutaneous tissues were closed in layers with 2-0, followed by 3-0 Vicryl suture. Each of the skin incisions was closed in a running subcuticular fashion with 3-0 Vicryl suture. Steri-Strips and sterile dressings were applied. There were no overt intraoperative complications. She was rolled onto her cart, extubated, and taken to the recovery room in satisfactory condition. Damien Berg MD* SK/rxsmj Voice Rec. ID #[id number] Original Voice Rec. ID #[id number] Doc ID #[id number] Revision Count: 0 cc: Damien Berg MD* Bebeto Adams M.D.* <start header> [place] [id number] OPERATIVE REPORT PATIENT NAME: GERTRUDIS DALY ROOM NUMBER: [id number] VISIT NUMBER: [id number] DATE OF : 1955 <end header> DO NOT TEXT EDIT THIS LINE :CROP PEST CONTROL SPECIALIST:[id number]: Authenticated by DAMIEN BERG M.D. On 01/01/2015 08:10:18 AM documented in this encounter Plan of Treatment Upcoming Encounters Date Type Department Care Team (Late st Contact Info) Description 03/13/2024 2:45 PM EST Office Visit [facility] [address] [place] [address] [place] [address] Cristiano Ace MD [address] [place] [address] [address] [facility] [address] [place] [address] documented as of this encounter Procedures Procedure Name Priority Date/Time Associated Diagnosis Comments POCT GLUCOSE FINGERSTICK Routine 01/01/2015 7:45 AM EDT POCT GLUCOSE FINGERSTICK Routine 12/31/2014 8:47 PM EDT POCT GLUCOSE FINGERSTICK Routine 12/31/2014 4:24 PM EDT POCT GLUCOSE FINGERSTICK Routine 12/31/2014 7:55 AM EDT CONV OR POTASSIUM Routine 12/31/2014 7:4 5 AM EDT FL C ARM DURING SURGERY Routine 12/31/2014 7:02 AM EDT SCANNED EKG 12/31/2014 MRSA SCREEN Routine 2014 2:00 PM EDT CBC (NO DIFF) Routine 2014 1:20 PM EDT BASIC METABOLIC PANEL Routine 2014 1:20 PM EDT documented in this encounter Results * (ABNORMAL) POCT Glucose Fingerstick (01/01/2015 7:45 AM EDT) Glucose 149(H) 70 - 100 mg/dL [facility] Blood specimen (specimen) 01/01/2015 7:45 AM EDT 01/01/2015 7:50 AM EDT [facility] - 01/01/2015 7:50 AM EDT Specimen Type : Blood Damien Berg MD POINT OF CARE TEST ORDERABLES Final Result Performing Organization Address City/State/[facility] Co de Phone Number [facility] [address] [place] [address], * (ABNORMAL) POCT Glucose Fingerstick (12/31/2014 8:47 PM EDT) Glucose 216(H) 70 - 100 mg/dL [facility] Blood specimen (specimen) 12/31/2014 8:47 PM EDT 12/31/2014 9:30 PM EDT [facility] - 12/31/2014 9:30 PM EDT Specimen Type : Blood Damien Berg MD POINT OF CARE TEST ORDERABLES Final Result Performing Organization Address [facility] [place] [address], * (ABNORMAL) POCT Glucose Fingerstick (12/31/2014 4:24 PM EDT) Glucose 210(H) 70 - 100 mg/dL [facility] Blood specimen (specimen) 12/31/2014 4:24 PM EDT 12/31/2014 4:28 PM EDT [facility] - 12/31/2014 4:28 PM EDT Specimen Type : Blood Damien Berg MD POINT OF CARE TEST ORDERABLES Final Result Performing Organization Address [facility] [place] [address], * (ABNORMAL) POCT Glucose Fingerstick (12/31/2014 7:55 AM EDT) Glucose 124(H) 70 - 100 mg/dL [facility] Blood specimen (specimen) 12/31/2014 7:55 AM EDT 12/31/2014 8:00 AM EDT Narrative [facility] - 12/31/2014 8:01 AM EDT Specimen Type : Blood Damien Berg MD POINT OF CARE TEST ORDERABLES Final Result Performing Organization Address [facility] [place] [address], * (ABNORMAL) OR Potassium (12/31/2014 7:45 AM EDT) Potassium 3.34(L) 3.5 - 5.3 mmol/L [facility] Venous blood specimen (specimen) 12/31/2014 7:45 AM EDT 12/31/2014 8:03 AM EDT Narrative [facility] - 12/31/2014 8:05 AM EDT Specimen Type : Venous Cam Dozier MD LAB BLOOD ORDERABLES Final Result [facility] [address] [place] [address], * FL C ARM DURING SURGERY (12/31/2014 7:02 AM EDT) Anatomical Region Laterality Modality Body, Other N/A Radiographic Sri ging 12/31/2014 7:02 AM EDT Narrative 12/31/2014 1:10 PM EDT Exam Room: C-ARM1 [facility] Exam Start: Exam Stop: EXAMINATION- ??USE OF FLUOROSCOPY AND INTRAOPERATIVE PROCEDURAL IMAGING DURING PLACEMENT OF A SPINAL CORD STIMULATOR HISTORY- Malfunction of spinal cord stimulator, revision, back pain FINDINGS- ?? 1. One minute 12 seconds of fluoroscopic time were used during this procedure. 2. A single image was obtained demonstrating a spinal cord stimulator revision placed at the T7-T8 level. Please refer to the procedural note otherwise. DT- ??12/31/2014 DE- ??12/31/2014 ? Reading Radiologist- CRISTIANO HARRIS ? Releasing Radiologist- CRISTIANO HARRIS ? Released Date Time- 12/31/14 1324 ? Geriatric Personal Care Aide- Esther Read By: CRISTIANO HARRIS Released By: CRISTIANO HARRIS Procedure Note Cristiano Myers MD - 01/24/2015 Exam Room: C-ARM1 [place] Exam Start: Exam Stop: [id number] EXAMINATION- USE OF FLUOROSCOPY AND INTRAOPERATIVE PROCEDURAL IMAGING DURING PLACEMENT OF A SPINAL CORD STIMULATOR HISTORY- Malfunction of spinal cord stimulator, revision, back pain FINDINGS- 1. One minute 12 seconds of fluoroscopic time were used during this procedure. 2. A single image was obtained demonstrating a spinal cord stimulator revision placed at the T7-T8 level. Please refer to the procedural note otherwise. DT- 12/31/2014 DE- 12/31/2014 Reading Radiologist- CRISTIANO HARRIS Releasing Radiologist- CRISTIANO HARRIS Released Date Time- 12/31/14 1324 Geriatric Personal Care Aide- D.M.E. Read By: CRISTIANO HARRIS Released By: CRISTIANO HARRIS Damien Berg MD IMG FLUOROSCOPY ORDERABLES Fi nal Result * SCANNED EKG (12/31/2014) [facility] ECG ORDERABLES Final Result * MRSA screen (2014 2:00 PM EDT) Other 2014 2:00 PM EDT 2014 2:58 PM EDT Narrative [facility] - 12/26/2014 6:21 AM EDT Specimen Type : Screening Nares Specimen: Screening Nares Collected: 2014 14:00 Status: Final ?Last Updated: 12/26/2014 06:21 ?Culture Result (Final) ?No Methicillin Resistant Staph Aureus Isolated Damien Berg MD MICROBIOLOGY - GENERAL ORDERA BLES Final Result [facility] [address] [place] [address], * (ABNORMAL) Basic metabolic panel (2014 1:20 PM EDT) Glucose 106(H) 70 - 100 mg/dL [facility] BUN 27(H) 9 - 23 mg/dL [facility] Creatinine 0.7 0.6 - 1.3 mg/dL [facility] Sodium 141 132 - 146 mmol/L [facility] Potassium 3.8 3.5 - 5.5 mmol/L [facility] Chloride 101 99 - 109 mmol/L [facility] CO2 33(H) 20 - 31 mmol/L [facility] Calcium 10.0 8.7 - 10.4 mg/dL [facility] Est GFR by Clearance 86 ml/min/1.7 32 [facility] Comment: ?? National Kidney [employer] Guidelines ?Stage ? Description ?GFR ?1 ?Normal or High ? 90+ ?2 ?Mild decrease ? 60-89 ?3 ?Moderate decrease ?30-59 ?4 ?Severe decrease ?15-29 ?5 ?Kidney failure ?<15 Anion Gap 7 3 - 11 mmol/L [facility] Blood specimen (specimen) 2014 1:20 PM EDT 2014 1:29 PM EDT [facility] - 2014 2:08 PM EDT Specimen Type : Blood Damien Berg MD LAB BLOOD ORDERABLES Final Re sult Performing Organization Address [facility] Co de Phone Number [facility] [address] [place] [address], * CBC (No diff) (2014 1:20 PM EDT) WBC 4.65 3.50 - 10.80 K/[facility] RBC 4.81 3.89 - 5.14 M/[facility] Hemoglobin 14.5 11.5 - 15.5 g/dL [facility] Hematocrit 42.5 34.5 - 44.0 % [facility] MCV 88.4 80.0 - 99.0 fL [facility] MCH 30.1 27.0 - 31.0 pg [facility] MCHC 34.1 32.0 - 36.0 g/dL [facility] RDW-CV 13.1 11.3 - 14.5 % [facility] Platelets 236 150 - 450 K/[facility] Blood specimen (specimen) 2014 1:20 PM EDT 2014 1:29 PM EDT [facility] - 2014 1:36 PM EDT Specimen Type : Blood Damien Berg MD LAB BLOOD ORDERABLES Final Re sult Performing Organization Address City/[facility]/[place] [address], documented in this encounter Visit Diagnoses Not on filedocumented in this encounter Care Teams Press Hand Relationship Specialty Start Date End Date Deepak Cortez MD PCP - General 12/31/14 12/12/16 documented as of this encounter
--- OUTSIDE RECORDS SUMMARY | 2024-02-20 09:17 | XMS_ITS | Encounter Summary ---
[facility] [address] [place] [address] Care Team Providers Care Universal Grinder Tool Name Role Phone Mari Contreras MD Primary Care Provider Unav ailable Encounter Details Date Type Department Care Team (Late st Contact Info) Description 07/06/2015 Office Visit Converted [facility] PAIN MANAGEMENT [address] [phone] Bebeto Adams MD 1760 [facility] [address] [place] [address] Social History Tobacco Use Types Packs/Day Years Used Date Smoking Tobacco: Never Assessed Comments Unknown Sex and Gender Information Value Date Recorded Sex Assigned at Not on file Legal Sex Female 10:25 AM EDT Gender Identity Not on file Sexual Orientation Not on file documented as of this encounter Last Filed Vital Signs Vital Sign Reading Time Taken Comments Blood Pressure 138/79 07/06/2015 1:52 PM EDT Pulse 94 07/06/2015 1:52 PM EDT Temperature 36.4 ??C (97.6 ??F) 07/06/2015 1:52 PM ED T Respiratory Rate 18 07/06/2015 1:52 PM EDT Oxygen Saturation 96% 07/06/2015 1:52 PM EDT Inhaled Oxygen Concentration - - Weight 83.6 kg (184 lb 5.9 oz) 07/06/2015 1:52 P M EDT Height 157.5 cm (5' 2 ) 07/06/2015 1:52 PM EDT Body Mass Index 33.72 07/06/2015 1:52 PM EDT documented in this encounter Progress Notes * Bebeto Adams MD - 07/06/2015 2:00 PM EDT Chief Complaint My stimulator is covering my pain well. My left hip, buttock and leg are painful after physical therapy. History of Present Illness Ms. Daly to clinic today for evaluation of her [employer] Spinal Cord Stimulator with possible reprogramming. She feels paresthesia across her back, left hip, buttock and down the posterior and medial aspect of the left leg. She has to make it a lot stronger to feel paresthesia in the lateral aspect of the leg, which prevents her from being able to walk. Today, she reports increased pain in the left sacroiliac region through the buttock down the posterolateral aspect of her leg, which occurs after physical therapy. Patient underwent revision of her spinal cord stimulator device with Dr. Damien Berg on 12/31/2014. Unfortunately, last weekend, she started experiencing left hip and left gluteal pain after her physical therapy session. Patient reports that the pain was so intense that she was unable to walk. Her left hip/left buttock pain is rated as 7/10. Her neurogenic claudication has remarkably improved since implantation of her spinal cord stimulator device. She plans to follow up in July regarding her sleep apnea. She continues with [facility]. She is to see Dr. Burks but an appointment is still pending. She continues using ice and heat. Patient denies any new bladder or bowel problems. She denies any new health concerns. In terms of medication for pain she uses Salonpas patches, Skelaxin, Tramadol, Tylenol, and Zipsor. She is also on Trazodone and Topamax GENE report #[id number], appropriate. Diagnostic Studies: X-ray of the pelvis [...] Problems 1. Chronic pain (338.29) (G89.29) 2. Diabetes mellitus (250.00) (E11.9) ?? Assessed By: Mari Contreras (Internal Medicine); Last Assessed: 07 May 2015 ?? pre diabetes 3. Hip pain (719.45) (M25.559) 4. Lumbar herniated disc (722.10) (M51.26) 5. Morbid obesity (278.01) (E66.01) 6. Neuropathic pain (729.2) (M79.2) Past Medical History [...] of backache (V13.59) (Z87.39) ?? History of hypertension (V12.59) (Z86.79) ?? [...] 3 TIMES DAILY NEEDED FOR MUSCLE SPASM. Omeprazole 20 MG Oral Capsule Delayed Release TAKE 1 CAPSULE DAILY. Pristiq 100 MG Oral Tablet Extended Release [...] Vitals Signs [Data Includes: Current Encounter] Temperature: 97.6 F Heart Rate: 94 Respiration: 18 Systolic: 138 Diastolic: 79 Height: 5 ft 2 in Weight: 184 lb 6 oz BMI Calculated: 33.72 BSA Calculated: 1.85 O2 Saturation: 96 Physical Exam Constitutional General [...] were absent. Straight leg raising test is positive on [...] her stimulator device for a total of 818 hours since last reprogramming, and 4150 lifetime hours, on average 22 hours per day. Analysis of impedance reveals normal impedance for all contacts. Spinal cord stimulator device was reprogrammed by adjusting electrode polarities, pulse width, pulse rate, and amplitudes, by creating two new programs for a total of six programs, as follows; Program SIX (best program): Electrode polarities: 1+, 2-, 4+, 5-, 6+ Amplitudes programmed: 6.8 mA (0-25.5) Pulse width: 400 mcs Pulse Rate: 110 Hz Time spent reprogrammin minutes. A copy of the telemetry report was scanned in the patient's chart Assessment 1. Lumbar arachnoiditis; excellent analgesic and functional response to spinal cord stimulation 2. Lumbar postlaminectomy syndrome 3. History of recurrent left sacroiliac joint dysfunction 4. History of recurrent left gluteal bursitis 5. History of left piriformis muscle syndrome/myofascial 6. Lumbar facet arthropathy/lumbar spondylosis without myelopathy 7. Moderate obesity 8. Obstructive sleep apnea 9. Ybv-etmnohy-trbeafvqj diabetes 10. Insomnia 11. Migraine headaches 12. Deconditioning, significantly improved Plan 1. Follow-up in twelve weeks for possible spinal cord stimulator reprogramming. [...] based on water therapy c. Follow-up at [facility] d. Follow-up with Dr. Diogenes Neville for cognitive behavioral therapy and biofeedback e. Will up with Dr. Lozano for her sleep apnea 3. Pharmacological measures, as follows: a. Continue [...] for tobacco use: Current tobacco non-user 6. Diagnostic studies; We will obtain x-rays of the sacroiliac joints 7. The patient has been instructed to [...] 3 TIMES DAILY NEEDED FOR MUSCLE SPASM. Omeprazole 20 MG Oral Capsule Delayed Release TAKE 1 CAPSULE DAILY. Pristiq 100 MG Oral Tablet Extended Release [...] any other NSAIDs. Patient Care Team Care Universal Grinder Tool Role Specialty Office Number MARI Moore Internal Medicine DAMIEN BERG Neurology BEBETO Kramer Pain Management BEBETO ADAMS Pain Management Future Appointments Date/Time Provider Specialty Site 11/02/2015 10:30 AM Mari Contreras M.D. Internal Medicine [facility] [place] Signatures Electronically signed by : Bebeto Adams M.D.; Jul 06 2015 6:39PM EST (Author) documented in this encounter Miscellaneous Notes * Letter - Bebeto Adams MD - 07/06/2015 2:00 PM EDT Per your request, I saw GERTRUDIS DALY today in consultation for the assessment listed below. Chief Complaint My stimulator is covering my pain well. My left hip, buttock and leg are painful after physical therapy. History of Present Illness Ms. Daly to clinic today for evaluation of her [employer] Spinal Cord Stimulator with possible reprogramming. She feels paresthesia across her back, left hip, buttock and down the posterior and medial aspect of the left leg. She has to make it a lot stronger to feel paresthesia in the lateral aspect of the leg, which prevents her from being able to walk. Today, she reports increased pain in the left sacroiliac region through the buttock down the posterolateral aspect of her leg, which occurs after physical therapy. Patient underwent revision of her spinal cord stimulator device with Dr. Damien Berg on 12/31/2014. Unfortunately, last weekend, she started experiencing left hip and left gluteal pain after her physical therapy session. Patient reports that the pain was so intense that she was unable to walk. Her left hip/left buttock pain is rated as 7/10. Her neurogenic claudication has remarkably improved since implantation of her spinal cord stimulator device. She plans to follow up in July regarding her sleep apnea. She continues with [facility]. She is to see Dr. Burks but an appointment is still pending. She continues using ice and heat. Patient denies any new bladder or bowel problems. She denies any new health concerns. In terms of medication for pain she uses Salonpas patches, Skelaxin, Tramadol, Tylenol, and Zipsor. She is also on Trazodone and Topamax GENE report #[id number], appropriate. Diagnostic Studies: X-ray of the pelvis [...] Problems 1. Chronic pain (338.29) (G89.29) 2. Diabetes mellitus (250.00) (E11.9) ?? Assessed By: Mari Contreras (Internal Medicine); Last Assessed: 07 May 2015 ?? pre diabetes 3. Hip pain (719.45) (M25.559) 4. Lumbar herniated disc (722.10) (M51.26) 5. Morbid obesity (278.01) (E66.01) 6. Neuropathic pain (729.2) (M79.2) Past Medical History [...] of backache (V13.59) (Z87.39) ?? History of hypertension (V12.59) (Z86.79) ?? [...] 3 TIMES DAILY NEEDED FOR MUSCLE SPASM. Omeprazole 20 MG Oral Capsule Delayed Release TAKE 1 CAPSULE DAILY. Pristiq 100 MG Oral Tablet Extended Release [...] Vitals Signs [Data Includes: Current Encounter] Temperature: 97.6 F Heart Rate: 94 Respiration: 18 Systolic: 138 Diastolic: 79 Height: 5 ft 2 in Weight: 184 lb 6 oz BMI Calculated: 33.72 BSA Calculated: 1.85 O2 Saturation: 96 Physical Exam Constitutional General [...] were absent. Straight leg raising test is positive on [...] her stimulator device for a total of 818 hours since last reprogramming, and 4150 lifetime hours, on average 22 hours per day. Analysis of impedance reveals normal impedance for all contacts. Spinal cord stimulator device was reprogrammed by adjusting electrode polarities, pulse width, pulse rate, and amplitudes, by creating two new programs for a total of six programs, as follows; Program SIX (best program): Electrode polarities: 1+, 2-, 4+, 5-, 6+ Amplitudes programmed: 6.8 mA (0-25.5) Pulse width: 400 mcs Pulse Rate: 110 Hz Time spent reprogrammin minutes. A copy of the telemetry report was scanned in the patient's chart Assessment 1. Lumbar arachnoiditis; excellent analgesic and functional response to spinal cord stimulation 2. Lumbar postlaminectomy syndrome 3. History of recurrent left sacroiliac joint dysfunction 4. History of recurrent left gluteal bursitis 5. History of left piriformis muscle syndrome/myofascial 6. Lumbar facet arthropathy/lumbar spondylosis without myelopathy 7. Moderate obesity 8. Obstructive sleep apnea 9. Vdp-mnksbjl-xpuhpucgv diabetes 10. Insomnia 11. Migraine headaches 12. Deconditioning, significantly improved Plan 1. Follow-up in twelve weeks for possible spinal cord stimulator reprogramming. [...] based on water therapy c. Follow-up at [facility] d. Follow-up with Dr. Diogenes Neville for cognitive behavioral therapy and biofeedback e. Will up with Dr. Lozano for her sleep apnea 3. Pharmacological measures, as follows: a. Continue [...] for tobacco use: Current tobacco non-user 6. Diagnostic studies; We will obtain x-rays of the sacroiliac joints 7. The patient has been instructed to [...] 3 TIMES DAILY NEEDED FOR MUSCLE SPASM. Omeprazole 20 MG Oral Capsule Delayed Release TAKE 1 CAPSULE DAILY. Pristiq 100 MG Oral Tablet Extended Release [...] any other NSAIDs. Patient Care Team Care Universal Grinder Tool Role Specialty Office Number Tanya MARI CONTRERAS Internal Medicine DAMIEN BERG Neurology eReBEBETO Dhillon Pain Management BE[facility]ETO ADAMS Pain Management Future Appointments Date/Time Provider Specialty Site 11/02/2015 10:30 AM Mari Contreras M.D. Internal Medicine [facility] [place] Thank you very much for allowing me to participate in the care of this patient. If you have any questions, please do not hesitate to contact me. Signatures Electronically signed by : Bebeto Adams M.D.; Jul 06 2015 6:39PM EST (Author) documented in this encounter Plan of Treatment Upcoming Encounters Date Type Department Care Team (Late st Contact Info) Description 03/13/2024 2:45 PM EST Office Visit [facility] C[facility] [address] [facility] [place] [address] Pj Ace MD [address] [address] documented as of this encounter Visit Diagnoses Not on filedocumented in this encounter Care Teams Universal Grinder Tool Relationship Specialty Start Date End Date Mari Contreras MD PCP - General 12/31/14 12/12/16 documented as of this encounter
--- OUTSIDE RECORDS SUMMARY | 2024-02-20 09:17 | XMS_ITS | Encounter Summary ---
[facility] Address [address] [place] [address] Care Team Providers Care Mononitrotoluene Operator Name Role Phone Mari Cortez MD Primary Care Provider Unav ailable Encounter Details Date Type Department Care Team (Late st Contact Info) Description 05/04/2015 Office Visit Converted [facility] PAIN MANAGEMENT [address] [phone] Bebeto Lainez MD 1760 [facility] [address] [place] [address] Social History Tobacco Use Types Packs/Day Years Used Date Smoking Tobacco: Never Assessed Comments Unknown Sex and Gender Information Value Date Recorded Sex Assigned at Not on file Legal Sex Female 10:25 AM EDT Gender Identity Not on file Sexual Orientation Not on file documented as of this encounter Last Filed Vital Signs Vital Sign Reading Time Taken Comments Blood Pressure 138/78 05/04/2015 2:20 PM EST Pulse 92 05/04/2015 2:20 PM EST Temperature - - Respiratory Rate 18 05/04/2015 2:20 PM EST Oxygen Saturation 95% 05/04/2015 2:20 PM EST Inhaled Oxygen Concentration - - Weight 82.6 kg (182 lb 0.2 oz) 05/04/2015 2:20 P M EST Height - - Body Mass Index 33.29 04/27/2015 1:41 PM EST documented in this encounter Progress Notes * Bebeto aLinez MD - 05/04/2015 2:00 PM EST Chief Complaint I lost my programs in my stimulator and can only access two at this time. I need to have it reprogrammed. History of Present Illness Ms. Daly returns today for troubleshooting and possible reprogramming of her [employer] spinal cord stimulator device, which was uneventfully replaced by Dr. Damien Berg on 12/31/2014. Patient originally had a [employer] spinal cord stimulator device implanted on 11/10/2013, which had to be replaced secondary to device failure. Patient has remained afebrile since her last surgery. Patient reports receiving more than 90% ongoing relief of her chronic left buttock pain with the use of her [employer] stimulator device. Unfortunately, 2 days ago she had some difficulties with her research programmer and can only access two programs at this time. Chronic pain is rated as 2/10, which is mainly localized to the left buttock area. Her neurogenic claudication has remarkably improved since implantation of her spinal cord stimulator device. In addition to left buttock pain, she experiences recurrent headaches. She reports she gets headaches daily that are in the occipital region that radiate to the front area that typically last 2-3 hours. Patient has a history of chronic migraine headaches.She continues to use ice and heat. Patient denies any new bladder or bowel problems. She denies any new health concerns. In terms of medication for pain she uses Salonpas patches, Skelaxin, Tramadol, Tylenol, and Zipsor. GENE report #[id number], appropriate. Diagnostic Studies: X-ray of the pelvis [...] Signs [Data Includes: Current Encounter] Heart Rate: 92 Respiration: 18 Systolic: 138 Diastolic: 78 Weight: 182 lb BMI Calculated: 33.29 BSA Calculated: 1.84 O2 Saturation: 95 Physical Exam Constitutional General appearance: No acute [...] of the spinal cord stimulator device without reprogramming Analysis of the spinal cord stimulator device reveals that the patient has used her stimulator device 100% of the time for a total of 104 hours since last reprogramming, and 2816 lifetime hours. Program FOUR (best program): Electrode polarities: 1+, 2-, 5+, 6- Amplitudes programmed: 8.8 mA (0-25.5) Pulse width: 412 mcs Pulse Rate: 84 Hz Time spent reprogrammin minutes. A copy of the telemetry report was scanned in the patient's chart Assessment 1. Lumbar arachnoiditis; excellent analgesic and functional response to spinal cord stimulation 2. Lumbar postlaminectomy syndrome 3. History of left piriformis muscle syndrome/myofascial 4. History of recurrent left sacroiliac joint dysfunction 5. History of refractory left gluteal bursitis 6. Lumbar facet arthropathy/lumbar spondylosis without myelopathy 7. Moderate obesity 8. Obstructive sleep apnea 9. Nkf-qbuwbtf-mjktwbgpj diabetes 10. Insomnia 11. Migraine headaches 12. Deconditioning, significantly improved Plan 1. Follow-up in eight weeks for possible spinal cord stimulator reprogramming 2. Long-term rehabilitation efforts: a. Start a comprehensive physical therapy program b. Start an independent exercise program based on aqua therapy c. Follow-up at [facility] d. Follow-up [...] not to take any other NSAIDs d. Start weaning tramadol 50 mg from 1 tablet 3 times a day as needed for severe breakthrough pain,then twice daily, then once a day for another week, [...] any other NSAIDs. Patient Care Team Care Mononitrotoluene Operator Role Specialty Office Number MARI Moore Internal Medicine DAMIEN BERG Neurology BEBETO Kramer Pain Management BEBETO LAINEZ Pain Management Future Appointments Date/Time Provider Specialty Site 05/07/2015 10:45 AM Mari Cortez M.D. Internal [facility] [place] 07/06/2015 01:00 PM Bebeto Lainez M.D. Pain Management [facility] Signatures Electronically signed by : Bebeto Lainez M.D.; May 04 2015 7:51PM EST (Author) documented in this encounter Miscellaneous Notes * Letter - Bebeto Lainez MD - 05/04/2015 2:00 PM EST Per your request, I saw GERTRUDIS DALY today in consultation for the assessment listed below. Chief Complaint I lost my programs in my stimulator and can only access two at this time. I need to have it reprogrammed. History of Present Illness Ms. Daly returns today for troubleshooting and possible reprogramming of her [employer] spinal cord stimulator device, which was uneventfully replaced by Dr. Damien Berg on 12/31/2014. Patient originally had a [employer] spinal cord stimulator device implanted on 11/10/2013, which had to be replaced secondary to device failure. Patient has remained afebrile since her last surgery. Patient reports receiving more than 90% ongoing relief of her chronic left buttock pain with the use of her [employer] stimulator device. Unfortunately, 2 days ago she had some difficulties with her research programmer and can only access two programs at this time. Chronic pain is rated as 2/10, which is mainly localized to the left buttock area. Her neurogenic claudication has remarkably improved since implantation of her spinal cord stimulator device. In addition to left buttock pain, she experiences recurrent headaches. She reports she gets headaches daily that are in the occipital region that radiate to the front area that typically last 2-3 hours. Patient has a history of chronic migraine headaches.She continues to use ice and heat. Patient denies any new bladder or bowel problems. She denies any new health concerns. In terms of medication for pain she uses Salonpas patches, Skelaxin, Tramadol, Tylenol, and Zipsor. GENE report #[id number], appropriate. Diagnostic Studies: X-ray of the pelvis [...] Signs [Data Includes: Current Encounter] Heart Rate: 92 Respiration: 18 Systolic: 138 Diastolic: 78 Weight: 182 lb BMI Calculated: 33.29 BSA Calculated: 1.84 O2 Saturation: 95 Physical Exam Constitutional General appearance: No acute [...] of the spinal cord stimulator device without reprogramming Analysis of the spinal cord stimulator device reveals that the patient has used her stimulator device 100% of the time for a total of 104 hours since last reprogramming, and 2816 lifetime hours. Program FOUR (best program): Electrode polarities: 1+, 2-, 5+, 6- Amplitudes programmed: 8.8 mA (0-25.5) Pulse width: 412 mcs Pulse Rate: 84 Hz Time spent reprogrammin minutes. A copy of the telemetry report was scanned in the patient's chart Assessment 1. Lumbar arachnoiditis; excellent analgesic and functional response to spinal cord stimulation 2. Lumbar postlaminectomy syndrome 3. History of left piriformis muscle syndrome/myofascial 4. History of recurrent left sacroiliac joint dysfunction 5. History of refractory left gluteal bursitis 6. Lumbar facet arthropathy/lumbar spondylosis without myelopathy 7. Moderate obesity 8. Obstructive sleep apnea 9. Oqd-vxtnelg-evqfllfkh diabetes 10. Insomnia 11. Migraine headaches 12. Deconditioning, significantly improved Plan 1. Follow-up in eight weeks for possible spinal cord stimulator reprogramming 2. Long-term rehabilitation efforts: a. Start a comprehensive physical therapy program b. Start an independent exercise program based on aqua therapy c. Follow-up at [facility] d. Follow-up [...] not to take any other NSAIDs d. Start weaning tramadol 50 mg from 1 tablet 3 times a day as needed for severe breakthrough pain,then twice daily, then once a day for another week, [...] any other NSAIDs. Patient Care Team Care Mononitrotoluene Operator Role Specialty Office Number Tanya MARI CORTEZ Internal Medicine DAMIEN BERG Neurology eRef BEBETO LAINEZ Pain Management [facility] LAINEZ Pain Management Future Appointments Date/Time Provider Specialty Site 05/07/2015 10:45 AM Mari Cortez M.D. Internal [facility] [place] 07/06/2015 01:00 PM Bebeto Lainez M.D. Pain Management [facility] Thank you very much for allowing me to participate in the care of this patient. If you have any questions, please do not hesitate to contact me. Signatures Electronically signed by : Bebeto Lainez M.D.; May 04 2015 7:51PM EST (Author) documented in this encounter Plan of Treatment Upcoming Encounters Date Type Department Care Team (Late st Contact Info) Description 03/13/2024 2:45 PM EST Office Visit [facility] CARDIOLOGY [address] [facility] [place] [address] Pj Ace MD [address] [facility] [address] [facility] [address] [place] [address] documented as of this encounter Visit Diagnoses Not on filedocumented in this encounter Care Teams Mononitrotoluene Operator Relationship Specialty Start Date End Date Mari Cortez MD PCP - General 12/31/14 12/12/16 documented as of this encounter
--- OUTSIDE RECORDS SUMMARY | 2024-02-20 09:17 | XMS_ITS | Encounter Summary ---
[facility] Address [address] [place] [address] Care Team Providers Care Locomotive Operator Helper Name Role Phone Deepak Cortez MD Primary Care Provider Unav ailable Reason for Visit * Reason Comments Med Refill Encounter Details Date Type Department Care Team (Late st Contact Info) Description 09/28/2015 Refill [facility] [address] [facility] [address] [place] [phone] Bebeto Adams MD 1760 [facility] [address] [place] [address] Social History Tobacco Use Types Packs/Day Years [...] [facility] [address] [place] [address] [place] [address] Pj Ace MD [address] [facility] [address] [place] [address] documented as of this encounter Visit Diagnoses Not on filedocumented in this encounter Care Teams Locomotive Operator Helper Relationship Specialty Start Date End Date Deepak Cortez MD PCP - General 12/31/14 12/12/16 documented as of this encounter
--- OUTSIDE RECORDS SUMMARY | 2024-02-20 09:17 | XMS_ITS | Encounter Summary ---
[facility] Address [address] [place] [phone] Care Team Providers Care Housekeeping And Laundry Team Leader Name Role Phone Deepak Cortez MD Primary Care Provider Unav ailable Encounter Details Date Type Department Care Team (Latest Contact Info) Description 12/14/2014 8:01 AM EDT - 12/14/2014 11:59 PM EDT Hospital Encounter [facility] DEPARTMENT [address] [place] [phone] Deepak Cortez MD Discharge Disposition: Home or [...] 09/16/2012 01/20/2016 documented as of this encounter Plan of Treatment Upcoming Encounters Date Type Department Care Team (Late st Contact Info) Description 03/13/2024 2:45 PM EST Office Visit [facility] CARDIOLOGY [address] [place] [address] [place] [address] Pj Ace MD [address] [facility] E [facility] [address] [place] [address] documented as of this encounter Procedures Procedure Name Priority Date/Time Associated Diagnosis Comments CBC (NO DIFF) Routine 12/14/2014 11:58 AM EDT TSH Routine 12/14/2014 11:58 AM EDT VITAMIN B12 Routine 12/14/2014 11:58 AM EDT COMPREHENSIVE METABOLIC PANEL Routine 12/14/2014 11:58 AM EDT documented in this encounter Results * TSH (12/14/2014 11:58 AM EDT) TSH 1.752 0.350 - 5.350 UIU/mL [facility] Comment: Specimens containing fluorescein can produce falsely depressed values with this assay. ??Patients undergoing fluorescein dye angiography should wait 72 hours post-treatment before testing. Blood specimen (specimen) 12/14/2014 11:58 AM EDT 12/14/2014 1:17 PM EDT Narrative [facility] - 12/14/2014 4:22 PM EDT Specimen Type : Blood Deepak Cortez MD LAB BLOOD ORDERABLES Final Result [facility] [address] [place] [address], * (ABNORMAL) Comprehensive metabolic panel (12/14/2014 11:58 AM EDT) Pathologist [facility] Glucose 107(H) 70 - 100 mg/dL [facility] BUN 27(H) 9 - 23 mg/dL [facility] Creatinine 0.6 0.6 - 1.3 mg/dL [facility] Sodium 141 132 - 146 mmol/L [facility] Potassium 3.7 3.5 - 5.5 mmol/L [facility] Chloride 103 99 - 109 mmol/L [facility] CO2 32(H) 20 - 31 mmol/L [facility] Calcium 9.9 8.7 - 10.4 mg/dL [facility] Alkaline Phosphatase 120(H) 25 - 100 Units/L [facility] AST (SGOT) 28 0 - 33 Units/L [facility] ALT (SGPT) 37 7 - 40 Units/L [facility] Total Bilirubin 0.5 0.3 - 1.2 mg/dL [facility] Total Protein 7.5 5.7 - 8.2 g/dL [facility] Albumin 4.3 3.2 - 4.8 g/dL [facility] eGFR 96 ml/min/1.7 32 [facility] Comment: ?? National Kidney [employer] Guidelines ?Stage ? Description ?GFR ?1 ?Normal or High ? 90+ ?2 ?Mild decrease ? 60-89 ?3 ?Moderate decrease ?30-59 ?4 ?Severe decrease ?15-29 ?5 ?Kidney failure ?<15 Anion Gap 6 3 - 11 mmol/L [facility] Blood specimen (specimen) 12/14/2014 11:58 AM EDT 12/14/2014 1:17 PM EDT Narrative [facility] - 12/14/2014 4:22 PM EDT Specimen Type : Blood us Deepak Cortez MD LAB BLOOD ORDERABLES Final Result Performing Organization Address City/State/[facility] Co de Phone Number [facility] [address] [place] [address], * CBC (No diff) (12/14/2014 11:58 AM EDT) WBC 6.32 3.50 - 10.80 K/[facility] LABORATORY RBC 4.84 3.89 - 5.14 /[facility] Hemoglobin 14.7 11.5 - 15.5 g/dL [facility] Hematocrit 43.0 34.5 - 44.0 % [facility] MCV 88.8 80.0 - 99.0 [facility] MCH 30.4 27.0 - 31.0 pg [facility] MCHC 34.2 32.0 - 36.0 g/dL [facility] RDW-CV 13.1 11.3 - 14.5 % [facility] Platelets 235 150 - 450 K/mcL [facility] Blood specimen (specimen) 12/14/2014 11:58 AM EDT 12/14/2014 1:17 PM EDT [facility] - 12/14/2014 4:18 PM EDT Specimen Type : Blood Deepak Cortez MD LAB BLOOD ORDERABLES Final Result Performing Organization Address City/[facility] Co de Phone Number [facility] [address] [place] [address], [place] [phone] * (ABNORMAL) Vitamin B12 (12/14/2014 11:58 AM EDT) Pathologist [facility] Vitamin B-12 1,143(H) 211 - 911 pg/mL [facility] Blood specimen (specimen) 12/14/2014 11:58 AM EDT 12/14/2014 1:17 PM EDT [facility] - 12/14/2014 4:16 PM EDT Specimen Type : Blood Deepak Cortez MD LAB BLOOD ORDERABLES Final Result Performing Organization Address City/[facility] Co de Phone Number [facility] [address] [place] [address], [place] [phone] documented in this encounter Visit Diagnoses Not on filedocumented in this encounter Care Teams Housekeeping And Laundry Team Leader Relationship Specialty Start Date End Date Deepak Cortez MD PCP - General 11/12/14 12/20/14 documented as of this encounter
--- OUTSIDE RECORDS SUMMARY | 2024-02-20 09:17 | XMS_ITS | Encounter Summary ---
[facility] Address [address] [place] [address] Care Team Providers Care Fryer Operator Name Role Phone Deepak Cortez MD Primary Care Provider Unav ailable Reason for Visit * Reason Comments Med Refill Encounter Details Date Type Department Care Team (Late st Contact Info) Description 09/15/2015 Refill [facility] [address] [phone] Bebeto Adams MD [address] [place] [address] Social History Tobacco Use Types Packs/Day Years [...] Telephone Encounter - Alyson Burt RN - 09/17/2015 11:08 AM EDT Per 08/12/2015 note pt to wean tradol 50 mg from 1 tablet twice a day as needed for severe breakthrough pain, then once a day for another week, then discontinue tramadol. * Telephone Encounter - Alyson Burt RN - 09/15/2015 6:59 PM EDT 08/12/2015 progress note Plan: patient is to wean tramadol 50 mg from 1 tablet twice a day as needed for severe breakthrough pain, then once a day for another week, then discontinue tramadol. documented in this encounter Plan of Treatment Upcoming Encounters Date Type Department Care Team (Late st Contact Info) Description 03/13/2024 2:45 PM EST Office Visit [facility] CARDIOLOGY [address] [place] [address] [place] [address] Pj Ace MD [address] [facility] [address] [address] documented as of this encounter Visit Diagnoses Not on filedocumented in this encounter Care Teams Fryer Operator Relationship Specialty Start Date End Date Deepak Cortez MD PCP - General 12/31/14 12/12/16 documented as of this encounter
--- OUTSIDE RECORDS SUMMARY | 2024-02-20 09:17 | XMS_ITS | Encounter Summary ---
[facility] Address [address] [place] [address] Care Team Providers Care Material Movers Name Role Phone Deepak Cortez MD Primary Care Provider Unav ailable Encounter Details Date Type Department Care Team (Late st Contact Info) Description 12/08/2014 Documentation Converted [facility] HISTORICAL CONV [address] [place] [address] Damien Berg MD [address] [facility] [address] [place] [address] Social History Tobacco Use Types Packs/Day Years Used Date Smoking Tobacco: Never Assessed Comments Unknown Sex and Gender Information Value Date Recorded Sex Assigned at Not on file Legal Sex Female 10:25 AM EDT Gender Identity Not on file Sexual Orientation Not on file documented as of this encounter Miscellaneous Notes * Telephone Encounter - Deepak Cortez MD - 12/08/2014 12:00 AM EDT Message Recorded as Task Date: 12/14/2014 11:35 AM, Created By: Nelly Au Task Name: Referral Order Assigned To: Nelly Au Regarding Patient: GERTRUDIS DALY, Status: Active Comment: Nelly Au - 14 Dec 2014 11:[address] Cortez would like to refer patient for fatigue. Thanks. Antoine Gonzalez - 14 Dec 2014 4:53 PM TASK REPLIED TO: Previously Assigned To Antoine Gonzalez 01/20/15 @ 09:[address] LAMINE SIMS, PACKET MAILED Nelly Au - 15 Dec 2014 9:30 AM TASK REPLIED TO: Previously Assigned To Nelly Au tried calling patient with appt info her vm is not set up she will get info from [facility] Signatures Electronically signed by : Nelly Au, ; Dec 15 2014 9:30AM EST (Author) documented in this encounter Plan of Treatment Upcoming Encounters Date Type Department Care Team (Late st Contact Info) Description 03/13/2024 2:45 PM EST Office Visit [facility] CARDIOLOGY [address] [place] [address] [place] [address] Pj Ace MD [address] [place] [address] documented as of this encounter Visit Diagnoses Not on filedocumented in this encounter Care Teams Material Movers Relationship Specialty Start Date End Date Deepak Cortez MD PCP - General 12/31/14 12/12/16 documented as of this encounter
--- OUTSIDE RECORDS SUMMARY | 2024-02-20 09:17 | XMS_ITS | Encounter Summary ---
Author Organization [facility] Address [address] [place] [address] Care Team Providers Care Rock Wool Insulator Name Role Phone Mari Cortez MD Primary Care Provider Unav ailable Encounter Details Date Type Department Care Team (Late st Contact Info) Description 01/07/2015 Office Visit Converted [facility] MEDICAL [facility] PAIN MANAGEMENT [address] [phone] Bebeto Adams MD [address] [facility] [address] [place] [phone] Social History Tobacco Use Types Packs/Day Years Used Date Smoking Tobacco: Never Assessed Comments Unknown Sex and Gender Information Value Date Recorded Sex Assigned at Not on file Legal Sex Female 10:25 AM EDT Gender Identity Not on file Sexual Orientation Not on file documented as of this encounter Last Filed Vital Signs Vital Sign Reading Time Taken Comments Blood Pressure 150/32 01/07/2015 2:17 PM EDT Pulse 86 01/07/2015 2:17 PM EDT Temperature 36.2 ??C (97.2 ??F) 01/07/2015 2:17 PM ED T Respiratory Rate 18 01/07/2015 2:17 PM EDT Oxygen Saturation 93% 01/07/2015 2:17 PM EDT Inhaled Oxygen Concentration - - Weight 82.7 kg (182 lb 6.2 oz) 01/07/2015 2:17 P M EDT Height 157.5 cm (5' 2 ) 01/07/2015 2:17 PM EDT Body Mass Index 33.36 01/07/2015 2:17 PM EDT documented in this encounter Progress Notes * Bebeto Adams - 01/07/2015 1:30 PM EDT Chief Complaint I am doing great and not having pain since my spinal cord stimulator implant. History of Present Illness Mrs. Daly returns today for follow up evaluation and potential reprogramming of her new [employer] spinal cord stimulator device replaced by Dr. Damien Berg on 12/31/2014. Patient reports that she woke up pain-free from her surgery. Patient originally implantation of a [employer] spinal cord stimulator device on 11/10/2013, which had to be replaced secondary to device failure. Patient hasremained afebrile and dressings have remained intact since her surgery. Patient reports receiving 100% relief of her chronic left buttock pain with the use of her [employer] stimulator device. Patient reports mild incisional pain that she describes as stinging. Postoperative pain is rated as 0-2/10, increasing with movement. Chronic pain is rated as 0-2/10. Without the use of the stimulator, the pain was rated as 10/10. Since the implant, patient reports being able to ambulate without any significant increase in her pain, with the use of the stimulator device, whereas prior to implantation she could only ambulate for up to 2 minutes prior to pain increasing to 10/10. Her neurogenic claudication has improved remarkable since implantation of her spinal cord stimulator. Patient denies any new bladder or bowel problems. She denies any new health concerns. [facility] report #[id number], appropriate. Diagnostic Studies: X-ray of the pelvis [...] Lymphatic: negative. Active Problems 1. Backache (724.5) (M54.9) 2. [...] NIGHT AT BEDTIME Lancets Miscellaneous USE DIRECTED. Metaxalone 800 MG Oral Tablet TAKE 1/2 [...] Do NOT take with any other NSAIDs. Lidocaine 5 % External Patch APPLY 1 PATCH TO THE AFFECTED AREA AND LEAVE IN PLACE FOR 12 HOURS, THEN REMOVE AND LEAVE OFF FOR 12 HOURS. Allergies 1. JORGITO Inhibitors 2. Actos TABS 3. Beta Adrenergic Blockers 4. Flexeril TABS 5. Hydrochlorothiazide TABS 6. Hyzaar TABS 7. Losartan Potassium TABS 8. MetFORMIN HCl TABS 9. Norvasc TABS 10. Spironolactone TABS Denied 11. Naproxen TABS Vitals Signs [Data Includes: Current Encounter] Temperature: 97.2 F Heart Rate: 86 Respiration: 18 Systolic: 150 Diastolic: 32 Height: 5 ft 2 in Weight: 182 lb 6 oz BMI Calculated: 33.36 BSA Calculated: 1.84 O2 Saturation: 93 Physical Exam Constitutional General appearance: No acute [...] are well-healedwithout redness, drainage, or fluid accumulation. Neurologic Cranial nerves: [...] and negative Romberg's sign. Psychiatric Judgment and insight:Normal. Orientation to person, place, and time: Normal. Recent and remote memory: Intact. Mood and affect: Normal. Procedure Analysis of the spinal cord stimulator device with complex spinal cord stimulator reprogramming Analysis of the spinal cord stimulator device reveals that the patient has used her stimulator device 100% of the time for a total of 171 lifetime hours. Electrode polarities, pulse rate, pulse width, and amplitudes where adjusted, and three programs were created, as follows; Program ONE (best program): Electrode polarities: 1+, 2-, 3-, 4+ Amplitudes programmed: 8.2 mA (0-25.5) Pulse width: 350 mcs Pulse Rate: 60 Hz Time spent reprogrammin minutes. A copy of the telemetry report was scanned in the patient's chart Assessment 1. Lumbar arachnoiditis; pain is well controlled and function has remarkably improved since revision and replacement of her spinal cord stimulator device 2. Lumbar postlaminectomy syndrome 3. History of left piriformis muscle syndrome/myofascial 4. History of recurrent left sacroiliac joint dysfunction 5. History of refractory left gluteal bursitis 6. Lumbar facet arthropathy 7. Moderate obesity 8. Sce-vnodduj-ukscmzgjb diabetes 9. Insomnia 10. Deconditioning, significantly improved Plan 1. Follow-up with me on 01/26/2015 at 06:30 AM for possible spinal cord stimulator reprogramming 2. Follow-up with Dr. Diogenes Neville for cognitive behavioral therapy and biofeedback 3. Long-term rehabilitation efforts: a. Patient will start a comprehensive physical therapy program in about 4 weeks b. Patient will start an independent exercise program based on aqua therapy in about 6 weeks c. Follow-up at [facility] 4. Pharmacological measures: a. Continue topiramate 50 [...] daily as needed for muscle spasms. 5. The patient has been instructed to contact my office with any questions or difficulties. The patient understands the plan and agrees to proceed accordingly. cc: Damien Berg M.D. Leidy Robertson M.D. End of Encounter Meds Medication Name Instruction Chlorthalidone 25 MG Oral Tablet TAKE 1 TABLET DAILY. Doxazosin Mesylate 1 MG Oral Tablet TAKE 3 TABLETS EVERY NIGHT AT BEDTIME Metaxalone 800 MG Oral Tablet (Skelaxin) TAKE [...] Do NOT take with any other NSAIDs. Lidocaine 5 % External Patch APPLY 1 PATCH TO THE AFFECTED AREA AND LEAVE IN PLACE FOR 12 HOURS, THEN REMOVE AND LEAVE OFF FOR 12 HOURS. Patient Care Team Care Rock Wool Insulator Role Specialty Office Number [facility] DAMIEN BERG Neurology [facility] Future Appointments Date/Time Provider Specialty Site 01/12/2015 09:15 AM Mari Cortez M.D. Internal Medicine [facility] [place] 01/13/2015 11:00 AM Poli Chaudhry PA-C [facility] 01/20/2015 09:00 AM Denis Lozano M.D. Pulmonary Medicine [facility] Signatures Electronically signed by : Bebeto Adams M.D.; Jan 07 2015 3:15PM EST (Author) documented in this encounter Miscellaneous Notes * Letter - Bebeto Adams - 01/07/2015 1:30 PM EDT Per your request, I saw GERTRUDIS DALY today in consultation for the assessment listed below. Chief Complaint I am doing great and not having pain since my spinal cord stimulator implant. History of Present Illness Mrs. Daly returns today for follow up evaluation and potential reprogramming of her new [employer] spinal cord stimulator device replaced by Dr. Damien Berg on 12/31/2014. Patient reports that she woke up pain-free from her surgery. Patient originally implantation of a [employer] spinal cord stimulator device on 11/10/2013, which had to be replaced secondary to device failure. Patient hasremained afebrile and dressings have remained intact since her surgery. Patient reports receiving 100% relief of her chronic left buttock pain with the use of her [employer] stimulator device. Patient reports mild incisional pain that she describes as stinging. Postoperative pain is rated as 0-2/10, increasing with movement. Chronic pain is rated as 0-2/10. Without the use of the stimulator, the pain was rated as 10/10. Since the implant, patient reports being able to ambulate without any significant increase in her pain, with the use of the stimulator device, whereas prior to implantation she could only ambulate for up to 2 minutes prior to pain increasing to 10/10. Her neurogenic claudication has improved remarkable since implantation of her spinal cord stimulator. Patient denies any new bladder or bowel problems. She denies any new health concerns. [facility] report #[id number], appropriate. Diagnostic Studies: X-ray of the pelvis [...] Lymphatic: negative. Active Problems 1. Backache (724.5) (M54.9) 2. [...] NIGHT AT BEDTIME Lancets Miscellaneous USE DIRECTED. Metaxalone 800 MG Oral Tablet TAKE 1/2 [...] Do NOT take with any other NSAIDs. Lidocaine 5 % External Patch APPLY 1 PATCH TO THE AFFECTED AREA AND LEAVE IN PLACE FOR 12 HOURS, THEN REMOVE AND LEAVE OFF FOR 12 HOURS. Allergies 1. JORGITO Inhibitors 2. Actos TABS 3. Beta Adrenergic Blockers 4. Flexeril TABS 5. Hydrochlorothiazide TABS 6. Hyzaar TABS 7. Losartan Potassium TABS 8. MetFORMIN HCl TABS 9. Norvasc TABS 10. Spironolactone TABS Denied 11. Naproxen TABS Vitals Signs [Data Includes: Current Encounter] Temperature: 97.2 F Heart Rate: 86 Respiration: 18 Systolic: 150 Diastolic: 32 Height: 5 ft 2 in Weight: 182 lb 6 oz BMI Calculated: 33.36 BSA Calculated: 1.84 O2 Saturation: 93 Physical Exam Constitutional General appearance: No acute [...] are well-healedwithout redness, drainage, or fluid accumulation. Neurologic Cranial nerves: [...] of the time for a total of 171 lifetime hours. Electrode polarities, pulse rate, pulse width, and amplitudes where adjusted, and three programs were created, as follows; Program ONE (best program): Electrode polarities: 1+, 2-, 3-, 4+ Amplitudes programmed: 8.2 mA (0-25.5) Pulse width: 350 mcs Pulse Rate: 60 Hz Time spent reprogrammin minutes. A copy of the telemetry report was scanned in the patient's chart Assessment 1. Lumbar arachnoiditis; pain is well controlled and function has remarkably improved since revision and replacement of her spinal cord stimulator device 2. Lumbar postlaminectomy syndrome 3. History of left piriformis muscle syndrome/myofascial 4. History of recurrent left sacroiliac joint dysfunction 5. History of refractory left gluteal bursitis 6. Lumbar facet arthropathy 7. Moderate obesity 8. Stz-lsdesvv-zajxnpjhw diabetes 9. Insomnia 10. Deconditioning, significantly improved Plan 1. Follow-up with me on 01/26/2015 at 06:30 AM for possible spinal cord stimulator reprogramming 2. Follow-up with Dr. Diogenes Neville for cognitive behavioral therapy and biofeedback 3. Long-term rehabilitation efforts: a. Patient will start a comprehensive physical therapy program in about 4 weeks b. Patient will start an independent exercise program based on aqua therapy in about 6 weeks c. Follow-up at [facility] 4. Pharmacological measures: a. Continue topiramate 50 [...] daily as needed for muscle spasms. 5. The patient has been instructed to contact my office with any questions or difficulties. The patient understands the plan and agrees to proceed accordingly. cc: Damien Berg M.D. Leidy Robertson M.D. End of Encounter Meds Medication Name Instruction Chlorthalidone 25 MG Oral Tablet TAKE 1 TABLET DAILY. Doxazosin Mesylate 1 MG Oral Tablet TAKE 3 TABLETS EVERY NIGHT AT BEDTIME Metaxalone 800 MG Oral Tablet (Skelaxin) TAKE [...] Do NOT take with any other NSAIDs. Lidocaine 5 % External Patch APPLY 1 PATCH TO THE AFFECTED AREA AND LEAVE IN PLACE FOR 12 HOURS, THEN REMOVE AND LEAVE OFF FOR 12 HOURS. Patient Care Team Care Rock Wool Insulator Role Specialty Office Number [facility] DAMIEN BERG Neurology [facility] Future Appointments Date/Time Provider Specialty Site 01/12/2015 09:15 AM Mari Cortez M.D. Internal Medicine [facility] [place] 01/13/2015 11:00 AM Poli Chaudhry PA-C [facility] 01/20/2015 09:00 AM Denis Lozano M.D. Pulmonary Medicine [facility] Thank you very much for allowing me to participate in the care of this patient. If you have any questions, please do not hesitate to contact me. Signatures Electronically signed by : Bebeto Adams M.D.; Jan 07 2015 3:15PM EST (Author) documented in this encounter Plan of Treatment Upcoming Encounters Date Type Department Care Team (Late st Contact Info) Description 03/13/2024 2:45 PM EST Office Visit [facility] CARDIOLOG[facility] [address] [place] [address] [place] [address] Pj Ace MD [address] [place] [address] documented as of this encounter Visit Diagnoses Not on filedocumented in this encounter Care Teams Rock Wool Insulator Relationship Specialty Start Date End Date Mari Cortez MD PCP - General 12/31/14 12/12/16 documented as of this encounter
--- OUTSIDE RECORDS SUMMARY | 2024-02-20 09:17 | XMS_ITS | Encounter Summary ---
Author Organization [facility] Address [address] [place] [address] Care Team Providers Care Metal Bed Assembler Name Role Phone Deepak Cortez MD Primary Care Provider Unav ailable Encounter Details Date Type Department Care Team (Late st Contact Info) Description 06/01/2015 9:24 AM EST - 07/01/2015 11:59 PM EDT Hospital Encounter [facility] [address] [facility] [address] [place] [address] Bebeto Adams MD [address] [facility] [address] [place] [phone] Discharge Disposition: Home or Self Care Social [...] Office Visit [facility] CARDIOLOGY [address] [facility] [place] [address] Pj Ace MD [address] [facility] [address] [place], [place] [phone] documented as of this encounter Visit Diagnoses Not on filedocumented in this encounter Care Teams Metal Bed Assembler Relationship Specialty Start Date End Date Deepak Cortez MD PCP - General 12/31/14 12/12/16 documented as of this encounter
--- OUTSIDE RECORDS SUMMARY | 2024-02-20 09:17 | XMS_ITS | Encounter Summary ---
Author Organization [facility] Address [address] [place] [address] Care Team Providers Care Welder Assembler Name Role Phone Deepak Cortez MD Primary Care Provider Unav ailable Reason for Visit * Reason Onset Date Comments Med Refill 09/30/2015 Encounter Details Date Type Department Care Team (Late st Contact Info) Description 09/30/2015 Refill [facility] PAIN [facility]NAGEMENT [address] [facility] [address] [place] [phone] Danelle Argueta MA Social History Tobacco Use Types Packs/Day [...] HOSPITAL CARDIOLOG[facility] [address] [place] [address] Pj Ace MD [address] [place] [address] documented as of this encounter Visit Diagnoses Not on filedocumented in this encounter Care Teams Welder Assembler Relationship Specialty Start Date End Date Deepak Cortez MD PCP - General 12/31/14 12/12/16 documented as of this encounter
--- OUTSIDE RECORDS SUMMARY | 2024-02-20 09:17 | XMS_ITS | Encounter Summary ---
[facility] Organization [facility] Address [address] [place] [address] Care Team Providers Care Chief Payroll Clerk Name Role Phone Deepak Cortez MD Primary Care Provider Unav ailable Encounter Details Date Type Department Care Team (Late st Contact Info) Description 04/21/2015 Telephone Converted [facility] HISTORICAL CONV [address] [place] [address] Social History Tobacco Use Types Packs/Day Years Used Date Smoking Tobacco: Never Assessed Comments Unknown Sex and Gender Information Value Date Recorded Sex Assigned at Not on file Legal Sex Female 10:25 AM EDT Gender Identity Not on file Sexual Orientation Not on file documented as of this encounter Miscellaneous Notes * Telephone Encounter - Interface, See Report - 04/21/2015 2:01 PM EST Message Recorded as Task Date: 04/21/2015 01:10 PM, Created By: Alana Stacy Task Name: Med Renewal Request Assigned To: Francis Jaimes Regarding Patient: GERTRUDIS DALY, Status: Active Comment: Alana Stacy - 21 Apr 2015 1:10 PM TASK CREATED Caller: Self; Renew Medication; PT. CALLED AND STATED THAT SHE NEEDED TO RENEW HER PERSCRIPTION FOR CHLORTHALIDONE 25MG. PT. STATEDTHAT SHE WANTS PERSCRIPTION CALLED TO [facility]. PT. STATED THAT SHE ALMOST OUT OF MEDICATIONS Francis Jaimes - 21 Apr 2015 2:01 PM TASK EDITED this was already escribed today. Signatures Electronically signed by : Francis Jaimes, ; Apr 21 2015 2:01PM EST (Author) documented in this encounter Plan of Treatment Upcoming Encounters Date Type Department Care Team (Late st Contact Info) Description 03/13/2024 2:45 PM EST Office Visit [facility] C[facility]OLOGY [address] [place] [address] [place] [address] Pj Ace MD [address] [facility] [address] [facility] [address] [place] [address] documented as of this encounter Visit Diagnoses Not on filedocumented in this encounter Care Teams Chief Payroll Clerk Relationship Specialty Start Date End Date Deepak Cortez MD PCP - General 12/31/14 12/12/16 documented as of this encounter
--- OUTSIDE RECORDS SUMMARY | 2024-02-20 09:17 | XMS_ITS | Encounter Summary ---
[facility] Address [address] [place] [address] Care Team Providers Care Boiler Technician Name Role Phone Mari Cortez MD Primary Care Provider Unav ailable Encounter Details Date Type Department Care Team (Late st Contact Info) Description 01/26/2015 Office Visit Converted [facility] PAIN MANAGEMENT [address] [phone] Bebeto Adams MD [address] [facility] [address] [place] [address] Social History Tobacco Use Types Packs/Day Years Used Date Smoking Tobacco: Never Assessed Comments Unknown Sex and Gender Information Value Date Recorded Sex Assigned at Not on file Legal Sex Female 10:25 AM EDT Gender Identity Not on file Sexual Orientation Not on file documented as of this encounter Last Filed Vital Signs Vital Sign Reading Time Taken Comments Blood Pressure 138/72 01/26/2015 6:41 AM EDT Pulse 79 01/26/2015 6:41 AM EDT Temperature 36 ??C (96.8 ??F) 01/26/2015 6:41 AM EDT Respiratory Rate 16 01/26/2015 6:41 AM EDT Oxygen Saturation 94% 01/26/2015 6:41 AM EDT Inhaled Oxygen Concentration - - Weight 85 kg (187 lb 6.3 oz) 01/26/2015 6:41 AM EDT Height 157.5 cm (5' 2 ) 01/26/2015 6:41 AM EDT Body Mass Index 34.27 01/26/2015 6:41 AM EDT documented in this encounter Progress Notes * Bebeto Adams MD - 01/26/2015 6:30 AM EDT Chief Complaint I am doing great and not having pain since my spinal cord stimulator implant. History of Present Illness Ms. Daly returns today for follow up evaluation and potential reprogramming of her [employer] spinal cord stimulator device replaced by Dr. Damien Berg on 12/31/2014. Patient reports that she woke up pain-free from her surgery. Patient originally implantation of a [employer] spinal cord stimulator device on 11/10/2013, which had to be replaced secondary to device failure. Patient has remained afebrile. Patient reports receiving 90% ongoing relief of her chronic left buttock pain with the use of her [employer] stimulator device. She reports that her pain increased 4 days ago after she bent over to shave her legs. She reports that her coverage decreased to 65% following this incident. Patient denies incisional pain. She denies any postoperative pain. Chronic pain is rated as3/10, this morning, which is mainly localized to the left buttock area. Without the use of the stimulator, the pain was rated as 10/10. Since the implant, patient reports being able to ambulate without any significant increase in her pain, with the use of the stimulator device, whereas prior to impl antation she could only ambulate for up to 2 minutes prior to pain increasing to 10/10. Her neurogenic claudication has improved remarkable since implantation of her spinal cord stimulator. Patient denies any new bladder or bowel problems. She denies any new health concerns. [facility] report #[id number], appropriate. Diagnostic Studies: X-ray of the pelvis [...] Hematologic and Lymphatic: negative. Active Problems 1. Depression (311) (F32.9) 2. Diabetes mellitus (250.00) (E11.9) ?? pre diabetes 3. Fatigue (780.79) (R53.83) 4. Hip pain (719.45) (M25.559) 5. Hyperlipidemia (272.4) (E78.5) 6. Lumbar herniated disc (722.10) (M51.26) 7. Morbid obesity (278.01) (E66.01) Past Medical History ?? History of Alopecia [...] Tablet TAKE 1 TABLET DAILY. Doxazosin Mesylate 2 MG Oral Tablet TAKE 1.5 TABLETS DAILY Metaxalone 800 MG Oral Tablet TAKE 1/2 [...] Vitals Signs [Data Includes: Current Encounter] Temperature: 96.8 F Heart Rate: 79 Respiration: 16 Systolic: 138 Diastolic: 72 Height: 5 ft 2 in Weight: 187 lb 6 oz BMI Calculated: 34.27 BSA Calculated: 1.86 O2 Saturation: 94 Physical Exam Constitutional General appearance: No acute [...] of the time for a total of 442 hours since last reprogramming, and 613 lifetime hours. Electrode polarities, pulse rate, pulse width, and amplitudes where adjusted, and three programs were created, as follows; Program ONE (best program): Electrode polarities: 1-, 2+, 5-, 6+ Amplitudes programmed: 6.2 mA (0-25.5) Pulse width: 500 mcs Pulse Rate: 60 Hz Time spent [...] Lumbar facet arthropathy 7. Moderate obesity 8. Mmm-pkgddzj-qajcesvsv diabetes 9. Insomnia 10. Deconditioning, significantly improved Plan 1. Follow-up in 4 weeks for possible spinal cord stimulator reprogramming 2. Follow-up with Dr. Diogenes Neville for cognitive behavioral therapy and biofeedback 3. Long-term rehabilitation efforts: a. Start a comprehensive physical therapy program b. Start an independent exercise program based on aqua therapy c. Follow-up at [facility] 4. Pharmacological [...] needed for severe breakthrough pain e. Continue lidocaine patches f. Continue Skelaxin 800 mg, take 1/2 to 1 three times daily as needed for muscle spasms. 5. Medication reconciliation has been performed in accordance to patient?s records 6. Patient has been screened for tobacco use: Current tobacco non-user 7. The patient has been instructed to contact my office with any questions or difficulties. The patient understands the plan and agrees to proceed accordingly. cc: Damien Berg M.D. Leidy Robertson M.D. End of Encounter Meds Medication Name Instruction Chlorthalidone 25 MG Oral Tablet TAKE 1 TABLET DAILY. Doxazosin Mesylate 2 MG Oral Tablet TAKE 1.5 TABLETS DAILY Metaxalone 800 MG Oral Tablet (Skelaxin) TAKE [...] FOR 12 HOURS. Patient Care Team Care Boiler Technician Role Specialty Office Number [facility] Internal [facility] DAMIEN BERG Neurology BE[facility] Pain Management Future Appointments Date/Time Provider Specialty Site 02/08/2015 11:45 AM Denis Lozano M.D. Pulmonary Medicine [facility] PULMONARY SLEEP STUDY 03/04/2015 11:30 AM Bebeto Adams M.D. Pain Management [facility] PAIN [facility]NAGEMENT [facility] 05/07/2015 10:45 AM Mari Cortez M.D. Internal Medicine [facility] [place] Signatures Electronically signed by : Bebeto Adams M.D.; Jan 26 2015 9:43AM EST (Author) documented in this encounter Miscellaneous Notes * Letter - Bebeto Adams MD - 01/26/2015 6:30 AM EDT Per your request, I saw GERTRUDIS DALY today in consultation for the assessment listed below. Chief Complaint I am doing great and not having pain since my spinal cord stimulator implant. History of Present Illness Ms. Daly returns today for follow up evaluation and potential reprogramming of her [employer] spinal cord stimulator device replaced by Dr. Damien Berg on 12/31/2014. Patient reports that she woke up pain-free from her surgery. Patient originally implantation of a [employer] spinal cord stimulator device on 11/10/2013, which had to be replaced secondary to device failure. Patient has remained afebrile. Patient reports receiving 90% ongoing relief of her chronic left buttock pain with the use of her [employer] stimulator device. She reports that her pain increased 4 days ago after she bent over to shave her legs. She reports that her coverage decreased to 65% following this incident. Patient denies incisional pain. She denies any postoperative pain. Chronic pain is rated as3/10, this morning, which is mainly localized to the left buttock area. Without the use of the stimulator, the pain was rated as 10/10. Since the implant, patient reports being able to ambulate without any significant increase in her pain, with the use of the stimulator device, whereas prior to impl antation she could only ambulate for up to 2 minutes prior to pain increasing to 10/10. Her neurogenic claudication has improved remarkable since implantation of her spinal cord stimulator. Patient denies any new bladder or bowel problems. She denies any new health concerns. [facility] report #[id number], appropriate. Diagnostic Studies: X-ray of the pelvis [...] Hematologic and Lymphatic: negative. Active Problems 1. Depression (311) (F32.9) 2. Diabetes mellitus (250.00) (E11.9) ?? pre diabetes 3. Fatigue (780.79) (R53.83) 4. Hip pain (719.45) (M25.559) 5. Hyperlipidemia (272.4) (E78.5) 6. Lumbar herniated disc (722.10) (M51.26) 7. Morbid obesity (278.01) (E66.01) Past Medical History ?? History of Alopecia [...] Tablet TAKE 1 TABLET DAILY. Doxazosin Mesylate 2 MG Oral Tablet TAKE 1.5 TABLETS DAILY Metaxalone 800 MG Oral Tablet TAKE 1/2 [...] Vitals Signs [Data Includes: Current Encounter] Temperature: 96.8 F Heart Rate: 79 Respiration: 16 Systolic: 138 Diastolic: 72 Height: 5 ft 2 in Weight: 187 lb 6 oz BMI Calculated: 34.27 BSA Calculated: 1.86 O2 Saturation: 94 Physical Exam Constitutional General appearance: No acute [...] of the time for a total of 442 hours since last reprogramming, and 613 lifetime hours. Electrode polarities, pulse rate, pulse width, and amplitudes where adjusted, and three programs were created, as follows; Program ONE (best program): Electrode polarities: 1-, 2+, 5-, 6+ Amplitudes programmed: 6.2 mA (0-25.5) Pulse width: 500 mcs Pulse Rate: 60 Hz Time spent [...] Lumbar facet arthropathy 7. Moderate obesity 8. Mtq-xhqdrtc-wuuqjkjnc diabetes 9. Insomnia 10. Deconditioning, significantly improved Plan 1. Follow-up in 4 weeks for possible spinal cord stimulator reprogramming 2. Follow-up with Dr. Diogenes Neville for cognitive behavioral therapy and biofeedback 3. Long-term rehabilitation efforts: a. Start a comprehensive physical therapy program b. Start an independent exercise program based on aqua therapy c. Follow-up at [facility] 4. Pharmacological [...] needed for severe breakthrough pain e. Continue lidocaine patches f. Continue Skelaxin 800 mg, take 1/2 to 1 three times daily as needed for muscle spasms. 5. Medication reconciliation has been performed in accordance to patient?s records 6. Patient has been screened for tobacco use: Current tobacco non-user 7. The patient has been instructed to contact my office with any questions or difficulties. The patient understands the plan and agrees to proceed accordingly. cc: Nuris Stiles M.D. End of Encounter Meds Medication Name Instruction Chlorthalidone 25 MG Oral Tablet TAKE 1 TABLET DAILY. Doxazosin Mesylate 2 MG Oral Tablet TAKE 1.5 TABLETS DAILY Metaxalone 800 MG Oral Tablet (Skelaxin) TAKE [...] FOR 12 HOURS. Patient Care Team Care Boiler Technician Role Specialty Office Number [facility] DAMIEN BERG Neurology [facility] Pain [facility] Future Appointments Date/Time Provider Specialty Site 02/08/2015 11:45 AM Denis Lozano M.D. Pulmonary Medicine [facility] PULMONARY SLEEP STUDY 03/04/2015 11:30 AM Bebeto Adams M.D. Pain Management [facility] PAIN MANAGEMENT [facility] 05/07/2015 10:45 AM Mari Cortez M.D. Internal Medicine [facility] [place] Thank you very much for allowing me to participate in the care of this patient. If you have any questions, please do not hesitate to contact me. Signatures Electronically signed by : Bebeto Adams M.D.; Jan 26 2015 9:43AM EST (Author) documented in this encounter Plan of Treatment Upcoming Encounters Date Type Department Care Team (Late st Contact Info) Description 03/13/2024 2:45 PM EST Office Visit [facility] CARDIOLOGY [address] [facility] [place] [address] [place] [address] Pj Ace MD [facility] [address] [facility] [address] [place] [address] documented as of this encounter Visit Diagnoses Not on filedocumented in this encounter Care Teams Boiler Technician Relationship Specialty Start Date End Date Mari Cortez MD PCP - General 12/31/14 12/12/16 documented as of this encounter
--- OUTSIDE RECORDS SUMMARY | 2024-02-20 09:17 | XMS_ITS | Encounter Summary ---
Author Organization [facility] yste Address [address] [place] [address] Care Team Providers Care Mainframe Architect Name Role Phone Mari Cortez MD Primary Care Provider Unav ailable Encounter Details Date Type Department Care Team (Late st Contact Info) Description 03/04/2015 Office Visit Converted [facility] MEDICAL [facility] PAIN MANAGEMENT [address] [phone] Bebeto Lainez MD [address] [facility] [address] [place] [address] Social History Tobacco Use Types Packs/Day Years Used Date Smoking Tobacco: Never Assessed Comments Unknown Sex and Gender Information Value Date Recorded Sex Assigned at Not on file Legal Sex Female 10:25 AM EDT Gender Identity Not on file Sexual Orientation Not on file documented as of this encounter Last Filed Vital Signs Vital Sign Reading Time Taken Comments Blood Pressure 142/84 03/04/2015 1:42 PM EST Pulse 83 03/04/2015 1:42 PM EST Temperature 36.6 ??C (97.8 ??F) 03/04/2015 1:42 PM ES T Respiratory Rate 17 03/04/2015 1:42 PM EST Oxygen Saturation 95% 03/04/2015 1:42 PM EST Inhaled Oxygen Concentration - - Weight 83.6 kg (184 lb 5.9 oz) 03/04/2015 1:42 P M EST Height 157.5 cm (5' 2 ) 03/04/2015 1:42 PM EST Body Mass Index 33.72 03/04/2015 1:42 PM EST documented in this encounter Progress Notes * Bebeto Lainez MD - 03/04/2015 1:30 PM EST Chief Complaint I am doing good with the stimulator. History of Present Illness Ms. Daly returns today for follow up evaluation and potential reprogramming of her [employer] spinal cord stimulator device replaced by Dr. Damien Berg on 12/31/2014. Patient reports that she woke up pain-free since her surgery. Patient originally had the implantation of a [employer] spinalcord stimulator device on 11/10/2013, which had to be replaced secondary to device failure. Patienthas remained afebrile. Patient reports receiving more than 70% ongoing relief of her chronic left buttock pain with the use of her [employer] stimulator device. Chronic pain is rated as 4/10, which is mainly localized to the left buttock area. She reports her stimulation is turned down lower than she typically uses it. Without the use of the stimulator, the pain was rated as 10/10. Since the implant, patient reports being able to ambulate further without significant increase in her pain, with the use of the stimulator device, whereas prior to implantation she could only ambulate for up to 2 minutes prior to pain increasing to 10/10. She also reports sitting for prolonged periods increases her pain. In addition to the pain in her left buttock she reports recurrent headaches. She reports she gets headaches daily that are in the occipital region that radiate to the front area that typically last 2-3 hours. Patient has a history of chronic migraine headaches. Her neurogenic claudication has improved remarkable since implantation of her spinal cord stimulator. She continues to use ice and heat. Patient denies any new bladder or bowel problems. She denies any new health concerns. In terms of medication for pain she uses Lidoderm patches, Salonpas patches, Skelaxin, Tramadol, Tylenol, and Zipsor. GENE report #[id number], appropriate. Diagnostic Studies: X-ray of the pelvis [...] Vitals Signs [Data Includes: Current Encounter] Temperature: 97.8 F Heart Rate: 83 Respiration: 17 Systolic: 142 Diastolic: 84 Height: 5 ft 2 in Weight: 184 lb 6 oz BMI Calculated: 33.72 BSA Calculated: 1.85 O2 Saturation: 95 Physical Exam Constitutional General [...] of the time for a total of 826 hours since last reprogramming, and 1439 lifetime hours. Electrode polarities, pulse rate, pulse width, and amplitudes where adjusted, and three programs were created, as follows; Program THREE (best program): Electrode polarities: 1+, 2-, 5+, 6+ Amplitudes programmed: 6.2 mA (0-25.5) Pulse width: 450 mcs Pulse Rate: 100 Hz Time spent reprogrammin minutes. A copy [...] Lumbar facet arthropathy 7. Moderate obesity 8. Obstructive sleep apnea 9. Xna-iohzakk-vatcnyxxs diabetes 10. Insomnia 11. Migraine headaches 12. Deconditioning, significantly improved Plan 1. Follow-up in 4 weeks for possible spinal cord stimulator reprogramming 2. Long-term rehabilitation efforts: a. Start a comprehensive physical therapy program b. Start an independent exercise program based on aqua therapy c. Follow-up at [facility] d. Follow-up with Dr. Diogenes Neville for cognitive behavioral therapy and biofeedback 3. Pharmacological measures: a. Continue topiramate 50 mg [...] times daily as needed for muscle spasms. 4. Medication reconciliation has been performed in accordance to patient?s records 5. Patient has been screened for tobacco use: Current tobacco non-user 6. I have advised the patient to make a follow-up appointment with Dr. Lozano to initiate CPAP therapy for her obstructive sleep apnea, since this could be the contributing to [...] FOR 12 HOURS. Patient Care Team Care Mainframe Architect Role Specialty Office Number MARI Moore Internal Medicine DAMIEN BERG Neurology Tanya BEBETO LAINEZ Pain Management Future Appointments Date/Time Provider Specialty Site 04/27/2015 01:30 PM Bebeto Lainez M.D. Pain Management [facility] PAIN MANAGEMENT [facility] 05/07/2015 10:45 AM Mari Cortez M.D. Internal Medicine [facility] Internal Medicine at [place] Signatures Electronically signed by : Bebeto Lainez M.D.; Mar 04 2015 9:01PM EST (Author) documented in this encounter Miscellaneous Notes * Letter - Bebeto Lainez MD - 03/04/2015 1:30 PM EST Per your request, I saw GERTRUDIS DALY today in consultation for the assessment listed below. Chief Complaint I am doing good with the stimulator. History of Present Illness Ms. Daly returns today for follow up evaluation and potential reprogramming of her [employer] spinal cord stimulator device replaced by Dr. Damein Berg on 12/31/2014. Patient reports that she woke up pain-free since her surgery. Patient originally had the implantation of a [employer] spinalcord stimulator device on 11/10/2013, which had to be replaced secondary to device failure. Patienthas remained afebrile. Patient reports receiving more than 70% ongoing relief of her chronic left buttock pain with the use of her [employer] stimulator device. Chronic pain is rated as 4/10, which is mainly localized to the left buttock area. She reports her stimulation is turned down lower than she typically uses it. Without the use of the stimulator, the pain was rated as 10/10. Since the implant, patient reports being able to ambulate further without significant increase in her pain, with the use of the stimulator device, whereas prior to implantation she could only ambulate for up to 2 minutes prior to pain increasing to 10/10. She also reports sitting for prolonged periods increases her pain. In addition to the pain in her left buttock she reports recurrent headaches. She reports she gets headaches daily that are in the occipital region that radiate to the front area that typically last 2-3 hours. Patient has a history of chronic migraine headaches. Her neurogenic claudication has improved remarkable since implantation of her spinal cord stimulator. She continues to use ice and heat. Patient denies any new bladder or bowel problems. She denies any new health concerns. In terms of medication for pain she uses Lidoderm patches, Salonpas patches, Skelaxin, Tramadol, Tylenol, and Zipsor. GENE report #[id number], appropriate. Diagnostic Studies: X-ray of the pelvis [...] Vitals Signs [Data Includes: Current Encounter] Temperature: 97.8 F Heart Rate: 83 Respiration: 17 Systolic: 142 Diastolic: 84 Height: 5 ft 2 in Weight: 184 lb 6 oz BMI Calculated: 33.72 BSA Calculated: 1.85 O2 Saturation: 95 Physical Exam Constitutional General [...] Coordination: Normal finger to nose and heel toshin. Coordination: normal balance and negative Romberg's sign. [...] of the time for a total of 826 hours since last reprogramming, and 1439 lifetime hours. Electrode polarities, pulse rate, pulse width, and amplitudes where adjusted, and three programs were created, as follows; Program THREE (best program): Electrode polarities: 1+, 2-, 5+, 6+ Amplitudes programmed: 6.2 mA (0-25.5) Pulse width: 450 mcs Pulse Rate: 100 Hz Time spent reprogrammin minutes. A copy [...] Lumbar facet arthropathy 7. Moderate obesity 8. Obstructive sleep apnea 9. Vvn-dzzmpdq-linyshlah diabetes 10. Insomnia 11. Migraine headaches 12. Deconditioning, significantly improved Plan 1. Follow-up in 4 weeks for possible spinal cord stimulator reprogramming 2. Long-term rehabilitation efforts: a. Start a comprehensive physical therapy program b. Start an independent exercise program based on aqua therapy c. Follow-up at [facility] d. Follow-up with Dr. Diogenes Neville for cognitive behavioral therapy and biofeedback 3. Pharmacological measures: a. Continue topiramate 50 mg [...] times daily as needed for muscle spasms. 4. Medication reconciliation has been performed in accordance to patient?s records 5. Patient has been screened for tobacco use: Current tobacco non-user 6. I have advised the patient to make a follow-up appointment with Dr. Lozano to initiate CPAP therapy for her obstructive sleep apnea, since this could be the contributing to [...] FOR 12 HOURS. Patient Care Team Care Mainframe Architect Role Specialty Office Number MARI Moore Internal Medicine DAMIEN BERG Neurology BEBETO Kramer Pain Management Future Appointments Date/Time Provider Specialty Site 04/27/2015 01:30 PM Bebeto Lainez M.D. Pain Management [facility] 05/07/2015 10:45 AM Mari Cortez M.D. Internal Medicine [facility] Internal Medicine at [place] Thank you very much for allowing me to participate in the care of this patient. If you have any questions, please do not hesitate to contact me. Signatures Electronically signed by : Bebeto Lainez M.D.; Mar 04 2015 9:01PM EST (Author) documented in this encounter Plan of Treatment Upcoming Encounters Date Type Department Care Team (Late st Contact Info) Description 03/13/2024 2:45 PM EST Office Visit [facility] CARDIOLOGY [address] [facility] [place] [place] [address] jP Ace MD [facility] [address] [facility] [address] [place] [address] documented as of this encounter Visit Diagnoses Not on filedocumented in this encounter Care Teams Mainframe Architect Relationship Specialty Start Date End Date Mari Cortez MD PCP - General 12/31/14 12/12/16 documented as of this encounter
--- OUTSIDE RECORDS SUMMARY | 2024-02-20 09:17 | XMS_ITS | Encounter Summary ---
[facility] Address [address] [place] [address] Care Team Providers Care Restrooms Or Lounges Maid Name Role Phone Deepak Cortez MD Primary Care Provider Unav ailable Encounter Details Date Type Department Care Team (Late st Contact Info) Description 01/07/[address] [facility] [address] [place] [address] Provider, MD Aiyana [address] [place] [address] Social History Tobacco Use Types Packs/Day Years Used Date Smoking Tobacco: Never Assessed Comments Unknown Sex and Gender Information Value Date Recorded Sex Assigned at Not on file Legal Sex Female 10:25 AM EDT Gender Identity Not on file Sexual Orientation Not on file documented as of this encounter Miscellaneous Notes * Telephone Encounter - Interface, See Report - 01/07/2015 11:20 AM EDT Message Ms. Gonzalez called. She had her system changed to a [employer] system 12/31/[address] Berg. She states she is not getting any stimulation and does not know how to use the system. She has a post op visit with Dr. Berg on 01/13/2015 but she reports she can not wait that long. Dr. Adams has approved her coming to clinic today for education and reprogramming. Signatures Electronically signed by : Maddison Kraus R.N.; Jan 07 2015 11:26AM EST (Author) documented in this encounter Plan of Treatment Upcoming Encounters Date Type Department Care Team (Late st Contact Info) Description 03/13/2024 2:45 PM EST Office Visit [facility] CARDIOLOGY [address] [place] [address] [address] [place] [address] Pj Ace MD [address] [facility] [address] [place] [address] documented as of this encounter Visit Diagnoses Not on filedocumented in this encounter Care Teams Restrooms Or Lounges Maid Relationship Specialty Start Date End Date Deepak Cortez MD PCP - General 12/31/14 12/12/16 documented as of this encounter
--- OUTSIDE RECORDS SUMMARY | 2024-02-20 09:17 | XMS_ITS | Encounter Summary ---
[facility] [address] [place] [address] Care Team Providers Care Process Improvement Manager Name Role Phone Deepak Cortez MD Primary Care Provider Unav ailable Reason for Visit * Reason Comments Med Refill Encounter Details Date Type Department Care Team (Late st Contact Info) Description 09/26/2015 Refill [facility] INTERNAL MEDICINE [address] [place] [address] Deepak Cortez MD Social History [...] HOSPITAL CARDIOLOGY [address] [place] [address] [place] [address] Pj Ace MD [address] [facility] [address] [place], [place] [id number] documented as of this encounter Visit Diagnoses Not on filedocumented in this encounter Care Teams Process Improvement Manager Relationship Specialty Start Date End Date Deepak Cortez MD PCP - General 12/31/14 12/12/16 documented as of this encounter
--- OUTSIDE RECORDS SUMMARY | 2024-02-20 09:17 | XMS_ITS | Encounter Summary ---
[facility] [address] [place] [address] Care Team Providers Care Commercial Account Officer Name Role Phone Deepak Cortez MD Primary Care Provider Unav ailable Encounter Details Date Type Department Care Team (Latest Contact Info) Description 02/03/2015 8:00 PM EST - 02/04/2015 7:30 AM [facility] Hospital Encounter [address] [phone] Denis Lozano MD [address] [place] [address], [address] [address] Discharge Disposition: Home or Self Care Social [...] DEPARTMENT CARDIOLOGY [address] [place] [address] [address] [place] [address] Pj Ace MD [address] [facility] [address] [facility] [address] [place] [address] documented as of this encounter Visit Diagnoses Not on filedocumented in this encounter Care Teams Commercial Account Officer Relationship Specialty Start Date End Date Deepak Cortez MD PCP - General 12/31/14 12/12/16 documented as of this encounter
--- OUTSIDE RECORDS SUMMARY | 2024-02-20 09:17 | XMS_ITS | Encounter Summary ---
Author Organization [facility] yste Address [address] [place] [address] Care Team Providers Care Warpman Name Role Phone Mari Cortez MD Primary Care Provider Unav ailable Encounter Details Date Type Department Care Team (Late st Contact Info) Description 04/27/2015 Office Visit Converted [facility] MEDICAL [facility] PAIN MANAGEMENT [address] [phone] Bebeto Adams MD [address] [facility] [address] [place] [address] Social History Tobacco Use Types Packs/Day Years Used Date Smoking Tobacco: Never Assessed Comments Unknown Sex and Gender Information Value Date Recorded Sex Assigned at Not on file Legal Sex Female 10:25 AM EDT Gender Identity Not on file Sexual Orientation Not on file documented as of this encounter Last Filed Vital Signs Vital Sign Reading Time Taken Comments Blood Pressure 113/65 04/27/2015 1:41 PM EST Pulse 92 04/27/2015 1:41 PM EST Temperature 36.6 ??C (97.8 ??F) 04/27/2015 1:41 PM ES T Respiratory Rate 18 04/27/2015 1:41 PM EST Oxygen Saturation 96% 04/27/2015 1:41 PM EST Inhaled Oxygen Concentration - - Weight 82.6 kg (182 lb 0.2 oz) 04/27/2015 1:41 P M EST Height 157.5 cm (5' 2 ) 04/27/2015 1:41 PM EST Body Mass Index 33.29 04/27/2015 1:41 PM EST documented in this encounter Miscellaneous Notes * Letter - Bebeto Adams MD - 04/27/2015 1:30 PM EST Per your request, I saw GERTRUDIS DALY today in consultation for the assessment listed below. Chief Complaint I had a fall and I don't feel like my stimulator is covering where it needs. History of Present Illness Ms. Daly returns today for follow up evaluation and reprogramming of her [employer] spinal cord stimulator device replaced by Dr. Damien Berg on 12/31/2014. Patient reports that she woke up pain-free after her surgery. Patient originally had the implantation of a [employer] spinal cord stimulator device on 11/10/2013, which had to be replaced secondary to device failure. Patient has remained afebrile. Patient reports receiving more than 70% ongoing relief of her chronic left buttock pain with the use of her [employer] stimulator device. Patient's chronic pain is left posterior hip down left lower extremity to the foot. Since her fall the stimulator has been covering the medialaspect of the legs. She also has increased pain in the low back since the fall. Chronic pain is rated as 4/10, which is mainly localized to the left buttock area. She reports her stimulation is turned down lower than she typically uses it because it seems to generate additional pain. She has been in the process of a move and was getting ready to start physical therapy. She also reports sitting for prolonged periods [...] Skelaxin, Tramadol, Tylenol, and Zipsor. GENE report #[id number], appropriate. Diagnostic Studies: X-ray of the pelvis [...] Current Encounter] Temperature: 97.8 F Heart Rate: 92 Respiration: 18 Systolic: 113 Diastolic: 65 Height: 5 ft 2 in Weight: 182 lb BMI Calculated: 33.29 BSA Calculated: 1.84 O2 Saturation: 96 Physical [...] of the time for a total of 1273 hours since last reprogramming, and 2712 lifetime hours. Electrode polarities, pulse rate, pulse width, and amplitudes where adjusted, and four programs were created, as follows; Program FOUR (best program): Electrode [...] Moderate obesity 8. Obstructive sleep apnea 9. Tue-qvicpdb-okhnzghpw diabetes 10. Insomnia 11. Migraine headaches 12. Deconditioning, significantly improved Plan 1. Follow-up in eight weeks for possible spinal cord stimulator reprogramming 2. Long-term rehabilitation efforts: a. Start a comprehensive physical therapy program b. Start an independent exercise program based on aqua therapy c. Follow-up at [facility] d. [...] d. Start weaning tramadol 50 mg from 1-2 tablets up to 4 times daily to 3 times a day for a week asneeded for severe breakthrough pain, then twice daily, then once a day for [...] any other NSAIDs. Patient Care Team Care Warpman Role Specialty Office Number Tanya MARI CORTEZ Internal Medicine DAMIEN BERG Neurology BEBETO Kramer Pain Management Future Appointments Date/Time Provider Specialty Site 05/07/2015 10:45 AM Mari Cortez M.D. Internal Medicine [facility] Internal Medicine at [place] Thank you very much for allowing me to participate in the care of this patient. If you have any questions, please do not hesitate to contact me. Signatures Electronically signed by : Bebeto Adams M.D.; Apr 27 2015 4:00PM EST (Author) documented in this encounter Plan of Treatment Upcoming Encounters Date Type Department Care Team (Late st Contact Info) Description 03/13/2024 2:45 PM EST Office Visit [facility] CARDIOLOGY [address] [facility] [place] [place] [address] Pj Ace MD [address] [facility] [address] [facility] [address] [place] [address] documented as of this encounter Visit Diagnoses Not on filedocumented in this encounter Care Teams Warpman Relationship Specialty Start Date End Date Mari Cortez MD PCP - General 12/31/14 12/12/16 documented as of this encounter
--- OUTSIDE RECORDS SUMMARY | 2024-02-20 09:17 | XMS_ITS | Encounter Summary ---
[facility] Address [address] [place] [address] Care Team Providers Care Caser In Name Role Phone Deepak Cortez MD Primary Care Provider Unav ailable Reason for Visit * Reason Comments Hip Pain left Foot Pain left Encounter Details Date Type Department Care Team (Late st Contact Info) Description 08/12/2015 1:00 PM EDT Office Visit [facility] [address] [address] Bebeto Adams MD [address] [facility] [address] [place] [address] Lumbar postlaminectomy syndrome; Meningeal adhesions; Lumbar facet arthropathy; Sacroiliac joint dysfunction of left side; Obesity [...] Sign Reading Time Taken Comments Blood Pressure 160/78 08/12/2015 1:02 PM EDT Pulse 103 08/12/2015 1:02 PM EDT Temperature - - Respiratory Rate 17 08/12/2015 1:02 PM EDT Oxygen Saturation 98% 08/12/2015 1:02 PM EDT Inhaled Oxygen Concentration - - Weight 83.5 kg (184 lb) 08/12/2015 1:02 PM EDT Height 160 cm (5' 3 ) 08/12/2015 1:02 PM EDT Body Mass Index 32.59 08/12/2015 1:02 PM EDT documented in this encounter Progress Notes * Bebeto Adams MD - 08/12/2015 1:37 PM EDT Chief Complain: My stimulator is covering my pain well. My left hip, buttock and leg are pain havebeen constant for the last five days. History of Present Illness: Gonzalez to clinic today for evaluation of her [employer] Spinal Cord Stimulator with possible reprogramming. She feels paresthesia across her back, left hip, buttock and down the posterior and medial aspect of the left leg. She has to set her spinal cord stimulator device to very high amplitudes to control her pain causing discomfort. make it a lot stronger to feel [...] regarding her sleep apnea. She continues with [facility]. She underwent consultation with Dr. Burks approximately one or two weeks ago, who started her on Geodon 40 mg at bedtime without any significant benefit regarding her severe anxiety. She continues using ice and heat. Patient denies any new bladder or bowel problems. She denies any new health concerns. In terms of medication for pain she uses Salonpas patches, Skelaxin, Tramadol, Tylenol, and Zipsor. She is also on Trazodone and Topamax. GENE report #[id number] appropriate. ?? Review of New Diagnostic Studies: X-rays of the sacroiliac joints from 07/20/2015 revealed lumbosacral and SI arthropathy. Previous Diagnostic Studies: ORIF of the lumbar [...] without acute abnormality. Review of Systems Constitutional: Positive for fatigue. Eyes: Positive for visual disturbance. Respiratory: Positive for apnea and shortness of breath. Cardiovascular: Positive for palpitations. Musculoskeletal: Positive for arthralgias, back pain, joint swelling and myalgias. Allergic/Immunologic: Positive for environmental allergies. Neurological: Positive for dizziness and light-headedness. Psychiatric/Behavioral: Positive for sleep disturbance. Depression All other systems reviewed and are negative. There is no problem list on file for this patient. Past Medical History Diagnosis Date ??? Anxiety ??? Benign essential hypertension ??? Colon polyps ??? Complication of device ??? Decreased libido ??? Dizziness ??? Encounter for long-term (current) use of medications ??? History of alopecia ??? History of backache ??? History of colonoscopy Fiberoptic ??? History of diabetes mellitus ??? History of insomnia ??? History of mastoiditis ??? History of migraine headaches ??? History of urinary stone ??? Kidney infection ??? Lumbar radiculopathy ??? Myofascial pain syndrome ??? Palpitations ??? Spinal cord stimulator status ??? Stress reaction, emotional ??? Urinary incontinence ??? Urinary tract infection ??? Visit for screening mammogram Description: 11/27/2008 ??? Vitamin D deficiency Past Surgical History Procedure Laterality Date ??? Bladder surgery ??? Colonoscopy Complete Colonoscopy ??? Other surgical history Elbow Surgery ??? Back surgery Lower Back ??? Other surgical history Spinal Sterotaxis Stimulation Of Cord ??? Hysterectomy Total Abdominal Hysterectomy (Description: BSO) ??? Spinal cord stimulator implant 2015 replacement Family History Problem Relation Age of Onset ??? Hypertension Mother ??? Peripheral vascular disease Mother ??? Lung disease Father History Social History ??? Marital status: Spouse name: N/A ??? Number of children: N/A ??? Years of education: N/A Social History Main Topics ??? Smoking status: Never Smoker ??? Smokeless tobacco: Never Used ??? Alcohol use: No ??? Drug use: No ??? Sexual activity: Not on file Other Topics Concern ??? None Social History Narrative Current Outpatient Prescriptions: ??? acetaminophen (TYLENOL) 500 MG tablet, Take 1 tablet by mouth. Every 4 to 6 hours as needed, Disp: , Rfl: ??? chlorthalidone (HYGROTEN) 25 MG tablet, Take 1 tablet by mouth daily., Disp: , Rfl: ??? desvenlafaxine (PRISTIQ) 100 MG 24 hr tablet, Take 1 tablet by mouth daily., Disp: , Rfl: ??? Diclofenac Potassium (ZIPSOR) 25 MG capsule, Take 1 capsule by mouth. Up to four times daily, Disp: , Rfl: ??? doxazosin (CARDURA) 2 MG tablet, Take 1.5 mg by mouth. Take 1.5 tablets daily, Disp: , Rfl: ??? estradiol (ESTRACE VAGINAL) [...] for 12 hours, Disp: , Rfl: ??? metaxalone (SKELAXIN) 800 MG tablet, Take by mouth. Take 1/2 tablet three times daily as needed, Disp: , Rfl: ??? omeprazole (PriLOSEC) 20 MG capsule, Take 1 capsule by mouth daily., Disp: , Rfl: ??? topiramate (TOPAMAX) 50 MG tablet, Take 1 tablet by mouth 2 (two) times a day., Disp: , Rfl: ??? traMADol (ULTRAM) 50 MG tablet, Take 1-2 tablets by mouth every 6 (six) hours as needed., Disp:, Rfl: ??? traZODone (DESYREL) 50 MG tablet, Take 1-2 tablets by mouth at night as needed., Disp: , Rfl: ??? ziprasidone (GEODON) 40 MG capsule, Take 40 mg by mouth 2 (two) times a day with meals., Disp: , Rfl: Allergies Allergen Reactions ??? Iain Inhibitors Cough ??? Amlodipine ??? Beta Adrenergic Blockers ??? Cyclobenzaprine ??? Hydrochlorothiazide ??? Hyzaar [Losartan Potassium-Hctz] ??? Latex ??? Losartan ??? Metformin ??? Penicillins ??? Pioglitazone ??? Spironolactone Visit Vitals ??? BP 160/78 (BP Location: Right arm, Patient Position: Sitting, Cuff Size: Adult) ??? Pulse 103 ??? Resp 17 ??? Ht 63 (160 cm) ??? Wt 184 lb (83.5 kg) ??? LMP (LMP Unknown) ??? SpO2 98% ??? BMI 32.59 kg/m2 Physical Exam Neurologic Exam Constitutional General appearance: No acute distress, well appearing and well nourished. Morbidly obese??and??wellhydrated. Head and Face Head and face: Normal. [...] at this time. The range of motion ofthe hip joints is full and without pain. [...] her stimulator device for a total of 599 hours since last reprogramming, and 4749 lifetime hours, on average 16 hours per day. Analysis of impedance reveals normal impedance for all contacts. Spinal cord stimulator device was reprogrammed by adjusting electrode polarities, pulse width, pulse rate, and amplitudes, by creating one new programs for a total of seven programs, as follows; Program SEVEN (best program): Electrode polarities: 4+, 5-, 6+, 9+, 10- Amplitudes programmed: 1.2-8.2 mA (0-25.5) Pulse width: 50 mcs Pulse Rate: 60 Hz Time spent reprogrammin minutes. A copy of the telemetry report was scanned in the patient's chart ASSESSMENT: 1. Lumbar postlaminectomy syndrome 2. Meningeal adhesions 3. Lumbar facet arthropathy 4. Sacroiliac joint dysfunction of left side 5. Obesity with sleep apnea 6. Moderate obesity 7. Insomnia, unspecified insomnia 8. Generalized anxiety disorder 9. History of migraine headaches 10. Physical deconditioning Plan 1. Follow-up in six weeks. If pain continues, then, we will proceed with diagnostic/therapeutic left L5-S1 and left S1 transforaminal epidural steroid injection. We may repeat another epidural depending on patient???s outcome. 2. Long-term rehabilitation efforts: a. Start comprehensive physical therapy program b. Start an independent exercise program based on water therapy c. Follow-up at [facility] d. Follow-up with Dr. Diogenes Neville for cognitive behavioral therapy and biofeedback e. Follow-up with Dr. Lozano for her sleep apnea f. Follow-up with Dr. Burks for her unrelenting anxiety and insomnia 3. Pharmacological measures, as follows: a. Continue [...] Physician (Pain Medicine) Damien Berg MD as Neurosurgeon New Medications Ordered This Visit Medications ??? ziprasidone (GEODON) 40 MG capsule Sig: Take 40 mg by mouth 2 (two) times a day with meals. Future Appointments Date Time Provider Department Center 09/23/2015 1:15 PM MD LILIANA Barillas [facility] None 11/02/2015 10:30 AM MD LILIANA Spaulding [facility] None Bebeto Adams MD documented in this encounter Plan of Treatment Upcoming Encounters Date Type Department Care Team (Late st Contact Info) Description 03/13/2024 2:45 PM EST Office Visit [facility] [address] [place] [address] [place] [address] Pj Ace MD [address] [facility] [address] [address] [place] [address] documented as of this encounter Procedures Procedure Name Priority Date/Time Associated Diagnosis Comments SCANNED - TELEMETRY 08/12/2015 documented in this encounter Results * SCANNED - TELEMETRY (08/12/2015) Anatomical Region Laterality Modality Other us Thanh Toscano MD ECG ORDERABLES Final Result documented in this encounter Visit Diagnoses Diagnosis Lumbar postlaminectomy syndrome Postlaminectomy syndrome, lumbar region Meningeal adhesions Lumbar facet arthropathy Spondylosis of unspecified site without mention of myelopathy Sacroiliac joint dysfunction of left side Obesity with sleep apnea Moderate obesity Insomnia, unspecified insomnia Generalized anxiety disorder History of migraine headaches Physical deconditioning Muscular wasting and disuse atrophy, not elsewhere classified documented in this encounter Care Teams Caser In Relationship Specialty Start Date End Date Deepak Cortez MD PCP - General 12/31/14 12/12/16 documented as of this encounter
--- OUTSIDE RECORDS SUMMARY | 2024-02-20 09:17 | XMS_ITS | Encounter Summary ---
[facility] Address [address] [place] [id number] Care Team Providers Care Waxed Bag Machine Operator Name Role Phone Unavailable Primary Care Provider Unavailabl e Encounter Details Date Type Department Care Team (Late st Contact Info) Description 11/06/2013 - 11/11/2014 12:53 PM EDT Hospital Encounter [facility] [address] [place] [address] Bebeto Adams MD [address]60 [facility] [address] [place] [address] Social History Tobacco Use Types Packs/Day Years [...] Office Visit [facility] [address] [facility] [place] [address] [place] [address] Pj Ace MD [address] [place] [address] documented as of this encounter Visit Diagnoses Not on filedocumented in this encounter
--- OUTSIDE RECORDS SUMMARY | 2024-02-20 09:17 | XMS_ITS | Encounter Summary ---
[facility] [address] [place] [address] Care Team Providers Care Food And Beverage Assistant Manager Name Role Phone Mari Cortez MD Primary Care Provider Unav ailable Encounter Details Date Type Department Care Team (Late st Contact Info) Description 04/08/2015 Office Visit Converted [facility] [address] [address] Bebeto Adams MD [address] [facility] [place] [address] [place] [address] Social History Tobacco Use Types Packs/Day Years Used Date Smoking Tobacco: Never Assessed Comments Unknown Sex and Gender Information Value Date Recorded Sex Assigned at Not on file Legal Sex Female 10:25 AM EDT Gender Identity Not on file Sexual Orientation Not on file documented as of this encounter Progress Notes * Bebeto Adams MD - 04/08/2015 1:00 PM EST Chief Complaint I had a fall and I don't feel like my stimulator is covering where it needs. History of Present Illness Ms. Gonzalez returns today for follow up evaluation and [...] Skelaxin, Tramadol, Tylenol, and Zipsor. GENE report #[id number], appropriate. Diagnostic Studies: X-ray of the pelvis [...] Moderate obesity 8. Obstructive sleep apnea 9. Dml-cfskzrt-qbrqsepdb diabetes 10. Insomnia 11. Migraine headaches 12. Deconditioning, significantly improved Plan 1. Follow-up in eight weeks for possible spinal cord stimulator reprogramming 2. Long-term rehabilitation efforts: a. Start a comprehensive physical therapy program b. Start an independent exercise program based on aqua therapy c. Follow-up at [facility] d. Follow-up [...] any other NSAIDs. Patient Care Team Care Food And Beverage Assistant Manager Role Specialty Office Number MARI Moore Internal Medicine DAMIEN BERG Neurology BEBETO Kramer Pain Management Future Appointments Date/Time Provider Specialty Site 05/07/2015 10:45 AM Mair Cortez M.D. Internal Medicine [facility] [place] Signatures Electronically signed by : Bebeto Adams M.D.; Apr 27 2015 4:00PM EST (Author) documented in this encounter Plan of Treatment Upcoming Encounters Date Type Department Care Team (Late st Contact Info) Description 03/13/2024 2:45 PM EST Office Visit [facility] [address] [place] [address] Pj Ace MD [address] [facility] [address] [facility] [address] [place] [address] documented as of this encounter Visit Diagnoses Not on filedocumented in this encounter Care Teams Food And Beverage Assistant Manager Relationship Specialty Start Date End Date Mari Cortez MD PCP - General 12/31/14 12/12/16 documented as of this encounter
--- OUTSIDE RECORDS SUMMARY | 2024-02-20 09:18 | XMS_ITS | Encounter Summary ---
[facility] [address] [place] [phone] Care Team Providers Care Rodeo Clown Name Role Phone Unavailable Primary Care Provider Unavailabl e Encounter Details Date Type Department Care Team (Late st Contact Info) Description 10/22/2014 7:52 AM EDT - 10/22/2014 11:59 PM EDT Hospital Encounter [facility] [address] [facility] [place] [address] Bebeto Adams MD [address] [facility] [address] [place] [address] Social History Tobacco Use Types Packs/Day Years [...] HOSPITAL CARDIOLOGY [address] [place] [address] [place] [address] Pj Ace MD [address] [facility] [address] [place] [address] documented as of this encounter Procedures Procedure Name Priority Date/Time Associated Diagnosis Comments XR SPINE THORACOLUMBAR JUNCTION 2 VIEW Routine 10/22/2014 8:00 AM EDT documented in this encounter Results * X-RAY THORACOLUMBAR SPINE 2 VIEWS (10/22/2014 8:00 AM EDT) Anatomical Region Laterality Modality Spine, T-spine, L-spine N/A [employer] [facility] 10/22/2014 8:00 AM EDT Narrative 10/23/2014 9:23 AM EDT EXAMINATION: XR SPINE THORACIC LUMBAR 2 VIEW- INDICATION: Spinal cord stimulator status. COMPARISON: 12/09/2013 thoracic spine. FINDINGS: Note is again made of patient's right-sided neurostimulator generator, and leads extending to the upper margin of T7 as on the previous exam. No disruption of the leads is identified. There is a minimal S-shaped scoliosis. ??The bony pelvis appears intact. Hip joints and SI joints appear generally well maintained. ? IMPRESSION- Neurostimulator generator and leads as noted. Minimal lumbar scoliosis. D: ??10/23/2014 E: ??10/23/2014 ? Reading [employer] ? Releasing [employer] ? Released Date Time- 10/25/14102 ? Senior Manager Asset ProtectionMerry Alatorre Procedure Note Anson Knight MD - 12/22/2014 EXAMINATION: XR SPINE THORACIC LUMBAR 2 VIEW- INDICATION: Spinal cord stimulator status. COMPARISON: 12/09/2013 thoracic spine. FINDINGS: Note is again made of patient's right-sided neurostimulator generator, and leads extending to the upper margin of T7 as on the previous exam. No disruption of the leads is identified. There is a minimal S-shaped scoliosis. The bony pelvis appears intact. Hip joints and SI joints appear generally well maintained. IMPRESSION- Neurostimulator generator and leads as noted. Minimal lumbar scoliosis. E: 10/23/2014 Reading [employer] Releasing [employer] Released Date Time- 10/25/14102 Senior Manager Asset Protection- M.J.P. Bebeto Adams MD IMG DIAGNOSTIC IMAGING ORDERA BLES Final Result documented in this encounter Visit Diagnoses Not on filedocumented in this encounter
--- OUTSIDE RECORDS SUMMARY | 2024-02-20 09:18 | XMS_ITS | Encounter Summary ---
[facility] Address [address] [place] [address] Care Team Providers Care Solar Energy Consultant And Designer Name Role Phone Deepak Cortez MD Primary Care Provider Unav ailable Encounter Details Date Type Department Care Team (Late st Contact Info) Description 07/31/2014 Office Visit Converted [facility] [address] [place] [address] Deepak Cortez MD Social History [...] Sign Reading Time Taken Comments Blood Pressure 140/82 07/31/2014 10:12 AM EDT Pulse 96 07/31/2014 10:12 AM EDT Temperature 36.8 ??C (98.2 ??F) 07/31/2014 10:12 AM E DT Respiratory Rate - - Oxygen Saturation - - Inhaled Oxygen Concentration - - Weight 81.3 kg (179 lb 2 oz) 07/31/2014 10:12 AM EDT Height - - Body Mass Index 32.76 05/14/2014 7:09 AM EST documented in this encounter Progress Notes * Deepak Cortez MD - 07/31/2014 9:30 AM EDT Chief Complaint FU DM, HTN History of Present Illness HPI: Her blood sugars are better controlled. He back and legs are hurting. She is seeing Dr. Adams. She reports that she has increased pain with activity. Review of Systems Complete-Female: Constitutional: no fever and no chills. Head and Face: no facial pain. Eyes: no eye pain and eyes not red. ENT: no earache and no hearing loss. Active Problems 1. Backache (724.5) 2. Complication of device (996.70) 3. Diabetes mellitus (250.00) ?? pre diabetes 4. Hip pain (719.45) 5. Hypertension (401.9) 6. Lumbar herniated disc (722.10) 7. Lumbar radiculopathy (724.4) 8. Morbid obesity (278.01) Past Medical History ?? [...] smoked tobacco Current Meds Medication Name Instruction Abilify 5 MG Oral Tablet TAKE 1/2 TABLET AT BEDTIME. Chlorthalidone 25 MG Oral Tablet TAKE 1 [...] Vitals Signs [Data Includes: Current Encounter] Temperature: 98.2 F Heart Rate: 96 Systolic: 140 Diastolic: 82 Weight: 179 lb 2 oz BMI Calculated: 32.76 BSA Calculated: 1.82 Physical Exam Complete Multi-System Exam (Brief): Constitutional [...] of extremities for edema and/or varicosities: Normal. Assessment 1. Diabetes mellitus (250.00) ?? pre diabetes 2. Lumbar radiculopathy (724.4) 3. Hypertension (401.9) Plan Diabetes mellitus ?? In Office A1C; Status:Complete; Done: 31Jul2014 10:51AM ?? In Office Blood Glucose; Status:Complete; Done: 31Jul2014 10:51AM Health Maintenance, Hypertension ?? Mesylate 1 MG Oral Tablet; TAKE 3 TABLETS EVERY NIGHT AT BEDTIME Hypertension ?? 25 MG Oral Tablet; TAKE 1 TABLET DAILY End of Encounter Meds Medication Name Instruction Abilify 5 MG Oral Tablet TAKE 1/2 TABLET AT BEDTIME. Chlorthalidone 25 MG Oral Tablet TAKE 1 [...] Do NOT take with any other NSAIDs. Future Appointments Date/Time Provider Specialty Site 08/11/2014 07:30 AM Bebeto Adams M.D. Pain Management [facility] PENDING SALE TO [facility] 11/03/2014 10:30 AM Deepak Cortez M.D. Internal Medicine [facility] [place] Signatures Electronically signed by : Deepak Cortez M.D.; Aug 03 2014 3:45PM EST (Author) documented in this encounter Plan of Treatment Upcoming Encounters Date Type Department Care Team (Late st Contact Info) Description 03/13/2024 2:45 PM EST Office Visit [facility] [address] [place] [address] [place] [address] Pj Ace MD [address] [facility] [address] [address] documented as of this encounter Visit Diagnoses Not on filedocumented in this encounter Care Teams Solar Energy Consultant And Designer Relationship Specialty Start Date End Date Deepak Cortez MD PCP - General 12/31/14 12/12/16 documented as of this encounter
--- OUTSIDE RECORDS SUMMARY | 2024-02-20 09:18 | XMS_ITS | Encounter Summary ---
[facility] Address [address] [place] [id number] Care Team Providers Care Business Functional Analyst Name Role Phone Unavailable Primary Care Provider Unavailabl e Encounter Details Date Type Department Care Team (Late st Contact Info) Description 10/02/2013 7:56 AM EDT - 10/02/2013 11:59 PM EDT Hospital Encounter [facility] DEPARTMENT [address] [place] [phone] Bebeto Adams MD [address] [facility] [address] [place] [address] Social History Tobacco Use Types Packs/Day Years Used Date Smoking Tobacco: Never Assessed Comments Unknown Sex and Gender Information Value Date Recorded Sex Assigned at Not on file Legal Sex Female 10:25 AM EDT Gender Identity Not on file Sexual Orientation Not on file documented as of this encounter Medications at Time of Discharge Diclofenac Potassium (ZIPSOR) 25 MG capsule Take 1 capsule by mouth. Up to four times daily 09/18/2013 09/28/2015 doxazosin (CARDURA) 2 MG tablet Take 1.5 mg by mouth. Take 1.5 tablets daily 07/25/2013 08/17/2015 traZODone (DESYREL) 50 MG tablet Take 1-2 tablets by mouth at night as needed. 09/16/2012 01/20/2016 documented as of this encounter Plan of Treatment Upcoming Encounters Date Type Department Care Team (Late st Contact Info) Description 03/13/2024 2:45 PM EST Office Visit [facility] CARDIOLOGY [address] [place] [address] [place] [address] Pj Ace MD [address] [facility] [address] [place] [address] documented as of this encounter Procedures Procedure Name Priority Date/Time Associated Diagnosis Comments URINALYSIS, MICROSCOPIC ONLY Routine 10/02/2013 8:14 AM EDT URINALYSIS WITHOUT MICROSCOPIC (NO CULTURE) Routine 10/02/2013 8:14 AM EDT APTT Routine 10/02/2013 8:14 AM EDT PROTIME-INR Routine 10/02/2013 8:14 AM EDT CBC AND DIFFERENTIAL Routine 10/02/2013 8:14 AM EDT URINE CULTURE Routine 10/02/2013 8:14 AM EDT documented in this encounter Results * Urine culture (10/02/2013 8:14 AM EDT) Urine specimen (specimen) 10/02/2013 8:14 AM EDT Narrative [facility] - 10/04/2013 10:40 AM EDT Specimen Type: Urine Specimen Source: urine [facility] - Culture Urine Specimen: Urine Collected: 10/02/2013 08:14 Status: FINAL ? Last Updated: 10/04/2013 10:40 Culture Result (CR) (Final) ??Mixed ??Endogenous Skin Janie ?? (CR) >100,000 cfu/ml Bebeto Adams MD MICROBIOLOGY - GENERAL ORDERA BLES Final Result [facility] [address] [place] [address], * (ABNORMAL) Urinalysis, Microscopic only (10/02/2013 8:14 AM EDT) WBC, UA 6-12(A) NONE SEEN,0-2 /hpf [facility] RBC, UA None Seen NONE SEEN,0-2 /hpf [facility] Epithelial Cells, UA 7-12(A) 0 - 2 /hpf [facility] Bacteria, UA Trace(A) NONE SEEN /hpf [facility] Crystals, UA Moderate/2+ Amorphous Urates(A) NONE SEEN [facility] Urine specimen (specimen) Urine specimen obtained by clean catch procedure / Unknown 10/02/2013 8:14 AM EDT Narrative [facility] - 10/02/2013 9:04 AM EDT Specimen Type: Urine Specimen Source: Clean Catch Bebeto Adams MD URINE ORDERABLES Final Result Performing Organization Address City/State/[facility] Co de Phone Number [place] [phone] [place] [address], * (ABNORMAL) Urinalysis Without Microscopic (10/02/2013 8:14 AM EDT) Color, UA Yellow [facility] Appearance, UA Slightly Cloudy [facility] Glucose, UA Negative NEGATIVE mg/dL [facility] Bilirubin, UA Negative NEGATIVE [facility] Ketones, UA Negative NEGATIVE [facility] Specific [place], UA 1.025 1.001 - 1.030 [facility] Blood, UA Negative NEGATIVE [facility] pH, UA 6.5 4.5 - 8.0 [facility] Protein, UA Negative NEGATIVE mg/dL [facility] Urobilinogen, UA 0.2 0.2 - 1.0 mg/dL [facility] Nitrite, UA Negative NEGATIVE [facility] Leukocytes, UA Trace(A) NEGATIVE [facility] Urine specimen (specimen) Urine specimen obtained by clean catch procedure / Unknown 10/02/2013 8:14 AM EDT [facility] - 10/02/2013 8:55 AM EDT Specimen Type: Urine Specimen Source: Clean Catch us Bebeto Adams MD URINE ORDERABLES Final Result Performing Organization Address [facility] [place] [address], * APTT (10/02/2013 8:14 AM EDT) PTT 28 24 - 31 Seconds [facility] Comment: US by IF @ 10/02/2013 08:37 PTT = The equivalent PTT values for the therapeutic range of heparin levels at 0.3 to 0.5 U/ml are 45 to 60 seconds. PTT = The equivalent PTT values for the therapeutic range of heparin levels at 0.3 to 0.5 U/ml are 45 to 60 seconds. Blood specimen (specimen) 10/02/2013 8:14 AM EDT [facility] - 10/02/2013 8:37 AM EDT Specimen Type: Blood us Bebeto Adams MD LAB BLOOD ORDERABLES Final Re sult Performing Organization Address [facility] [place] [address], * Protime-INR (10/02/2013 8:14 AM EDT) Protime 10.6 9.6 - 11.5 Seconds [facility] INR 0.99 [facility] Comment: US by IF @ 10/02/2013 08:37 Therapeutic Ranges for INR: 2.0-3.0 (PT 20-30) ?2.5-3.5 (PT 25-34) Blood specimen (specimen) 10/02/2013 8:14 AM EDT Narrative [facility] - 10/02/2013 8:37 AM EDT Specimen Type: Blood Bebeto Adams MD LAB BLOOD ORDERABLES Final Re sult [facility] [address] [place] [address], * CBC and Differential (10/02/2013 8:14 AM EDT) WBC 5.73 3.50 - 10.80 K/[facility] LABORATORY RBC 4.72 3.89 - 5.14 /[facility] Hemoglobin 13.8 11.5 - 15.5 g/dL [facility] Hematocrit 41.6 34.5 - 44.0 % [facility] MCV 88.1 80.0 - 99.0 fL [facility] MCH 29.2 27.0 - 31.0 pg [facility] MCHC 33.2 32.0 - 36.0 g/dL [facility] RDW-CV 13.0 11.3 - 14.5 % [facility] Platelets 229 150 - 450 K/[facility] Neutrophils Absolute 3.43 1.50 - 8.30 [facility] Lymphocytes Absolute 1.71 0.60 - 4.80 [facility] Monocytes Absolute 0.36 0.00 - 1.00 [facility] Eosinophils Absolute 0.17 0.10 - 0.30 [facility] Basophils Absolute 0.05 0.00 - 0.20 [facility] Neutrophil Rel % 59.8 41.0 - 71.0 % [facility] Lymphocyte Rel % 29.8 24.0 - 44.0 % [facility] Monocyte Rel % 6.3 0.0 - 12.0 % [facility] Eosinophil Rel % 3.0 0.0 - 3.0 % [facility] Basophil Rel % 0.9 0.0 - 1.0 % [facility] Immature Granulocyte Rel % 0.2 0.0 - 0.6 % [facility] Blood specimen (specimen) 10/02/2013 8:14 AM EDT Narrative [facility] - 10/02/2013 8:24 AM EDT Specimen Type: Blood Bebeto Adams MD LAB BLOOD ORDERABLES Final Re sult [facility] [address] [place] [address], documented in this encounter Visit Diagnoses Not on filedocumented in this encounter
--- OUTSIDE RECORDS SUMMARY | 2024-02-20 09:18 | XMS_ITS | Encounter Summary ---
[facility] Address [address] [place] [address] Care Team Providers Care Special Education Curriculum Specialist Name Role Phone Deepak Cortez MD Primary Care Provider Unav ailable Encounter Details Date Type Department Care Team (Late st Contact Info) Description 05/12/2013 Telephone Converted [facility] HISTORICAL CONV [address] [place] [address] Provider, MD Aiyana [address] [place] [id number] Social History Tobacco Use Types Packs/Day Years Used Date Smoking Tobacco: Never Assessed Comments Unknown Sex and Gender Information Value Date Recorded Sex Assigned at Not on file Legal Sex Female 10:25 AM EDT Gender Identity Not on file Sexual Orientation Not on file documented as of this encounter Miscellaneous Notes * Telephone Encounter - Interface, See Report - 05/12/2013 4:23 PM EST Message Recorded as Task Date: 05/12/2013 03:38 PM, Created By: Emily Kaur Task Name: Medication Question Assigned To: Francis Jaimes Regarding Patient: GERTRUDIS DALY Ofelia, Status: Active Comment: Emily Kaur - 12 May 2013 3:38 PM TASK CREATED Caller: Michelle; General Medical Question; please call they wanted to know if we could give them a history of what other medications she has been on so that the Edarbyclor can get a PA. please call Francis Jaimes - 12 May 2013 4:24 PM TASK EDITED this is a duplicate task Signatures Electronically signed by : Francis Jaimes, ; May 12 2013 4:24PM EST (Author) * Telephone Encounter - Interface, See Report - 05/12/2013 4:23 PM EST Message Recorded as Task Date: 05/09/2013 03:44 PM, Created By: Aruna Lowery Task Name: Follow Up Assigned To: Francis Jaimes Regarding Patient: GERTRUDIS DALY, Status: Active Comment: Aruna Lowery - 09 May 2013 3:44 PM TASK CREATED Caller: [place], Spouse; General Medical Question He said he got ahold of a department about what to do so that her medication covered. He said they are needing something showing what medicines she has tried that did not work. He wants to talk to you about what exactly he is needing so that he can send it to them. Please call and advise. His # [phone]. Thanks. Francis Jaimes - 12 May 2013 4:23 PM TASK EDITED spoke with and gave them list of meds that they had attempted before. he is contacting his insurance company again. Signatures Electronically signed by : Francis Jaimes, ; May 12 2013 4:23PM EST (Author) documented in this encounter Plan of Treatment Upcoming Encounters Date Type Department Care Team (Late st Contact Info) Description 03/13/2024 2:45 PM EST Office Visit [facility] CARDIOLOGY [address] [place] [address] Pj Ace MD [address] [facility] [address] [place] [address] documented as of this encounter Visit Diagnoses Not on filedocumented in this encounter Care Teams Special Education Curriculum Specialist Relationship Specialty Start Date End Date Deepak Cortez MD PCP - General 12/31/14 12/12/16 documented as of this encounter
--- OUTSIDE RECORDS SUMMARY | 2024-02-20 09:18 | XMS_ITS | Encounter Summary ---
[facility] Address [address] [place] [phone] Care Team Providers Care Refuge Manager Name Role Phone Unavailable Primary Care Provider Unavailabl e Encounter Details Date Type Department Care Team (Late st Contact Info) Description 04/09/2014 8:23 AM EST - 04/09/2014 11:59 PM [facility] Hospital Encounter [facility] DEPARTMENT [address] [place] [phone] Deepak Cortez MD Social History Tobacco Use [...] leave off for 12 hours 10/08/2013 01/30/2018 topiramate (TOPAMAX) 50 MG tablet Take 1 [...] [facility] CARDIOLOGY [address] [place] [address] [place] [address] Pj Ace MD [address] [place] [address] documented as of this encounter Procedures Procedure Name Priority Date/Time Associated Diagnosis Comments LIPID PANEL Routine 04/09/2014 12:35 PM EST COMPREHENSIVE METABOLIC PANEL Routine 04/09/2014 12:35 PM EST documented in this encounter Results * (ABNORMAL) Lipid panel (04/09/2014 12:35 PM EST) Fasting? Yes - Y [facility] Total Cholesterol 280(H) 0 - 200 mg/dL [facility] Comment: DF by IF @ 04/09/2014 16:14 ?? Cholesterol Reference Ranges: Desirable: ? less than 200 mg/dL Borderline: ?200-239 mg/dL High: ?greater than 239 mg/dL Triglycerides 225(H) 0 - 150 mg/dL [facility] Comment: DF by IF @ 04/09/2014 16:14 Triglyceride Reference Ranges: Normal ? less than 150 mg/dL Borderline ?150-199 mg/dL High ? 200-499 mg/dL Very High ? greater than 499 mg/dL HDL Cholesterol 58 40 - 60 mg/dL [facility] Comment: DF by IF @ 04/09/2014 16:14 HDL Cholesterol Reference Ranges: Low ? less than 40 mg/dL High ?greater than 59 mg/dL LDL Cholesterol 226(H) 0 - 130 mg/dL [facility] Comment: US by IF @ 04/09/2014 16:14 LDL Cholesterol Reference Ranges: Optimal ?less than 100 mg/dL Near Optimal ? 100-129 mg/dL Borderline ?130-159 mg/dL High ? 160-189 mg/dL Very High ? greater than 189 mg/dL Blood specimen (specimen) 04/09/2014 12:35 PM EST Narrative [facility] - 04/09/2014 4:14 PM EST Specimen Type: Blood Deepak Cortez MD LAB BLOOD ORDERABLES Final Result Performing Organization Address City/State/[facility] Co de Phone Number [facility] [address] [place] [address], * (ABNORMAL) Comprehensive metabolic panel (04/09/2014 12:35 PM EST) Glucose 114(H) 70 - 100 mg/dL [facility] BUN 17 9 - 23 mg/dL [facility] Creatinine 0.6 0.6 - 1.3 mg/dL [facility] Sodium 144 132 - 146 mmol/L [facility] Potassium 4.0 3.5 - 5.5 mmol/L [facility] Chloride 101 99 - 109 mmol/L [facility] CO2 34(H) 20 - 31 mmol/L [facility] Calcium 10.3 8.7 - 10.4 mg/dL [facility] Alkaline Phosphatase 124(H) 25 - 100 Units/L [facility] AST (SGOT) 37(H) 0 - 33 Units/L [facility] ALT (SGPT) 51(H) 7 - 40 Units/L [facility] Total Bilirubin 0.6 0.3 - 1.2 mg/dL [facility] Total Protein 7.5 5.7 - 8.2 g/dL [facility] Albumin 4.5 3.2 - 4.8 g/dL [facility] eGFR 106 ml/min/1.7 32 [facility] Comment: DF by IF @ 04/09/2014 16:14 ?? National [employer] Guidelines ?Stage ? Description ?GFR ?1 ?Normal or High ? 90+ ?2 ?Mild decrease ? 60-89 ?3 ?Moderate decrease ?30-59 ?4 ?Severe decrease ?15-29 ?5 ?Kidney failure ?<15 Anion Gap 9 3 - 11 mmol/L [facility] Blood specimen (specimen) 04/09/2014 12:35 PM EST Narrative [facility] - 04/09/2014 4:14 PM EST Specimen Type: Blood us Deepak Cortez MD LAB BLOOD ORDERABLES Final Result [facility] [address] [place] [address], documented in this encounter Visit Diagnoses Not on filedocumented in this encounter
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
--- OUTSIDE RECORDS SUMMARY | 2024-02-20 09:18 | XMS_ITS | Encounter Summary ---
[facility] Address [address] [place] [address] Care Team Providers Care Data Quality Consultant Name Role Phone Deepak Cortez MD Primary Care Provider Unav ailable Encounter Details Date Type Department Care Team (Late st Contact Info) Description 05/09/2013 Telephone Converted [facility] HISTORICAL CONV [address] [place] [address] Provider, MD Aiyana [address] [place], [place] [id number] Social History Tobacco Use Types Packs/Day Years Used Date Smoking Tobacco: Never Assessed Comments Unknown Sex and Gender Information Value Date Recorded Sex Assigned at Not on file Legal Sex Female 10:25 AM EDT Gender Identity Not on file Sexual Orientation Not on file documented as of this encounter Miscellaneous Notes * Telephone Encounter - Interface, See Report - 05/09/2013 3:48 PM EST Message Recorded as Task Date: 04/16/2013 10:07 AM, Created By: Aruna Lowery Task Name: Follow Up Assigned To: Francis Jaimes Regarding Patient: GERTRUDIS GONZALEZ, Status: In Progress Comment: Aruna Lowery - 16 Apr 2013 10:07 AM TASK CREATED Caller: [place], Spouse; General Medical Question The patients spouse called and said the patients medications were sent to [facility] and he said they are not covered under their insurance. He said you are needing to appeal this so that she can get the medication. They said the marquez of the medication in like $600.00 and they cannot afford this. It is for her Edarbyclor, 40/12.5 mg, two daily. She only has a couple left. The number you call to appeal [facility] Benefit Review Dept. # [phone]. His # [phone]. Thanks. Kalani Tadeo - 16 Apr 2013 10:19 AM TASK REASSIGNED: Previously Assigned To Francis Jaimes Nicole - 17 Apr 2013 3:10 PM TASK IN PROGRESS Kalani Tadeo - 22 Apr 2013 3:03 PM TASK REASSIGNED: Previously Assigned To Kalani Tadeo do you want to write a appeal letter about this? Francis Jaimes - 22 Apr 2013 3:07 PM TASK EDITED do you want us to write an aida letter for this? please advise. thank you. Leidy Robertson - 22 Apr 2013 7:24 PM TASK REPLIED TO: Previously Assigned To Leidy Robertson yes,, see tammi johnson's note 10-23-11, she is intol of other meds Francis Jaimes - 23 Apr 2013 11:07 AM TASK EDITED I could not find rejection in the chart, please advise. Leidy Robertson - 23 Apr 2013 2:08 PM TASK REPLIED TO: Previously Assigned To Leidy Robertson no , use tammi's note to document the meds she has not tolerated in the past and ask Jena where totake appeal or what needs to be done from here Francis Jaimes - 23 Apr 2013 4:54 PM TASK EDITED Kalani :) please check for a rejection, I do not see one. please advise. thank you. Ana Cristina Du - 01 May 2013 3:38 PM TASK EDITED The patient's called regarding this medication again. He stated that she only has a few pills left and will probably have to come in and get a few samples until they can get the auth to get this filled. Please call the pt to advise. [phone] Ana Cristina Du 01 May 2013 3:40 PM TASK EDITED He stated she may be able to come in and picket [employer] samples this afternoon when she gets off work at 4:30 Please call the patient's cell number #[phone] when the samples are ready. 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 JaimesFrancis 02 May 2013 10:27 AM TASK IN PROGRESS JaimesFrancis 02 May 2013 3:27 PM TASK EDITED insurance has refused to cover this med. we are not even able to run a pa on this. please advise. thank you. JaimesFrancis 02 May 2013 4:19 PM TASK EDITED need to do an appeal with insurance. patient needs to contact insurance and have them contact us. Leidy Robertson - 07 May 2013 4:26 PM TASK REPLIED TO: Previously Assigned To Leidy Robertson and back to you...patient getting info Jaimes,Francis 07 May 2013 4:52 PM TASK EDITED spoke with patients and he is going to contact insurance company and then contact us. Maria Schwab - 09 May 2013 10:06 AM TASK REPLIED TO: Previously Assigned To Francis Jaimes, PT'S CALLED TO TALKE ABOUT HIS 'S MEDICATION. PLEASE CALL HIM ON HIS CELL PHONE [phone]. Pamela Marcial - 09 May 2013 1:18 PM TASK EDITED [facility]/coverage review [phone] Francis Jaimes 09 May 2013 2:50 PM TASK EDITED I could not get insurance to talk to me about meds. I talked to and he said that he would try to contact them again. Francis Jaimes 09 May 2013 3:47 PM TASK EDITED this is now a duplicate task. Signatures Electronically signed by : Francis Jaimes, ; May 09 2013 3:48PM EST (Author) documented in this encounter Plan of Treatment Upcoming Encounters Date Type Department Care Team (Late st Contact Info) Description 03/13/2024 2:45 PM EST Office Visit [facility] [address] [facility] [place] [address] Pj Ace MD [address] [place] [address] documented as of this encounter Visit Diagnoses Not on filedocumented in this encounter Care Teams Data Quality Consultant Relationship Specialty Start Date End Date Deepak Cortez MD PCP - General 12/31/14 12/12/16 documented as of this encounter
--- OUTSIDE RECORDS SUMMARY | 2024-02-20 09:18 | XMS_ITS | Encounter Summary ---
Author Organization [facility] Address [address] [place] [address] Care Team Providers Care Decal Maker Name Role Phone Deepak Cortez MD Primary Care Provider Unav ailable Encounter Details Date Type Department Care Team (Late st Contact Info) Description 08/12/2013 Telephone Converted [facility] HISTORICAL CONV [address] [place] [address] Provider, MD Aiyana [address] [place] [id number] Social History Tobacco Use Types Packs/Day Years Used Date Smoking Tobacco: Never Assessed Comments Unknown Sex and Gender Information Value Date Recorded Sex Assigned at Not on file Legal Sex Female 10:25 AM EDT Gender Identity Not on file Sexual Orientation Not on file documented as of this encounter Miscellaneous Notes * Telephone Encounter - Interface, See Report - 08/12/2013 12:37 PM EDT Message Recorded as Task Date: 08/12/2013 09:38 AM, Created By: Katherine Meza Task Name: Med Renewal Request Assigned To: Francis Jaimes Regarding Patient: ADDYGERTRUDIS, Status: Active Comment: Katherine Meza - 12 Aug 2013 9:38 AM TASK CREATED Caller: Self; Renew Medication; ; Patient called and stated that the pharmacy still doesn't have her prescription for Doxazosin Mesylate 1mg. Patient uses [facility] in [place], [place]. Patient can be reached at [phone] if needed. Thanks! Francis Jaimes - 12 Aug 2013 12:37 PM TASK EDITED med called in per protocol. Signatures Electronically signed by : Francis Jaimes, ; Aug 12 2013 12:37PM EST (Author) documented in this encounter Plan of Treatment Upcoming Encounters Date Type Department Care Team (Late st Contact Info) Description 03/13/2024 2:45 PM EST Office Visit [facility] [address] [place] [address] [place] [address] Pj Ace MD [address] [facility] [address] [address] documented as of this encounter Visit Diagnoses Not on filedocumented in this encounter Care Teams Decal Maker Relationship Specialty Start Date End Date Deepak Cortez MD PCP - General 12/31/14 12/12/16 documented as of this encounter
--- OUTSIDE RECORDS SUMMARY | 2024-02-20 09:18 | XMS_ITS | Encounter Summary ---
Author Organization [facility] Address [address] [place] [address] Care Team Providers Care Utilization Management Rn Name Role Phone Deepak Cortez MD Primary Care Provider Unav ailable Encounter Details Date Type Department Care Team (Late st Contact Info) Description 04/07/2014 Office Visit Converted [facility] [address] [phone] Bebeto Adams MD [address] [facility] [address] [place] [address] Social History Tobacco Use Types Packs/Day Years Used Date Smoking Tobacco: Never Assessed Comments Unknown Sex and Gender Information Value Date Recorded Sex Assigned at Not on file Legal Sex Female 10:25 AM EDT Gender Identity Not on file Sexual Orientation Not on file documented as of this encounter Last Filed Vital Signs Vital Sign Reading Time Taken Comments Blood Pressure 160/98 04/07/2014 6:38 AM EST Pulse 86 04/07/2014 6:38 AM EST Temperature 36.8 ??C (98.2 ??F) 04/07/2014 6:38 AM ES T Respiratory Rate 18 04/07/2014 6:38 AM EST Oxygen Saturation 98% 04/07/2014 6:38 AM EST Inhaled Oxygen Concentration - - Weight 86.3 kg (190 lb 4.1 oz) 04/07/2014 6:38 A M EST Height 157.5 cm (5' 2 ) 04/07/2014 6:38 AM EST Body Mass Index 34.8 04/07/2014 6:38 AM EST documented in this encounter Progress Notes * Bebeto Adams A - 04/07/2014 6:30 AM EST Chief Complaint Pain in my lower back, left buttock and leg. I need my spinal cord stimulator reprogrammed. History of Present Illness Mrs. Daly returns today for follow-up evaluation and possible spinal cord stimulator reprogramming. She was last seen on 02/17/2014 for follow up of left sacroiliac joint and gluteal bursa injection performed on 01/21/2014 and reprogramming of her spinal cord stimulator device. At that time she reported 50% ongoing relief of her left buttock and lower extremity pain and complete relief of her left hip pain following her procedure. Patient underwent spinal cord stimulator implant with surgicallead placement on 11/10/[address] Damien Berg. Today, patient complains of left sided lower back pain radiating to the left buttock and lower extremity extending to the foot. Patient reports that her pain level ranges from 4-10/10 with the the use of her stimulator device. Patient reports shehas not used her stimulator device for two weeks. Prior to placement of her stimulator device, the patient's pain level was rated as a constant 8-10/10. She was unable to ambulate more than 50 feet without experiencing a severe aching pain. She describes chronic numbness in the lateral aspect of her leg and numbness in the left lower extremity. Patient denies any new bladder or bowel problems. She denies any new health concerns. Patient was last seen in follow-up at [facility] on 01/06/2014. She was last seen in follow-up with Dr. Diogenes Neville for cognitive behavioral therapy and biofeedback on 03/11/2014, and has a scheduled follow-up on 04/07/2014. Patient attends physical therapy twice weekly with significant benefit. She is not participates in anindependent exercise program, particularly aqua therapy or Pilates. Patient continues to perform home stretches recommended by physical therapy daily. In terms of medications, she continues on trazodone, tizanidine, Zipsor, tramadol, and Tylenol as needed. Patient does not experience side effects with her current medication regiment. No new diagnostic studies to review. GENE report #[id number], appropriate. Patient has completed a SOAPP questionnaire and ORT questionnaire (revealing low risk). Gene reports have been reviewed and appropriate. Random urine drug screenings have been obtained and appropriate. Patient has signed a consent for treatment with controlled substances after reviewing the document and verbalizing full understanding of the risks/benefits/alternatives/and consequences of compliance and adherence with treatment and plan of care. Patient received in hand a copy of this document. Diagnostic Studies: X-ray of the pelvis on 01/06/2014, revealed mild sclerosis about the right sacroiliac joint. X-ray of the thoracic spine on 12/09/2013, revealed minor cord stimulator electrodes positioned at T7. The thoracic spine otherwise demonstrates mild degenerative change without acute abnormality. Review of Systems Constitutional: fatigue. Head and Face: negative. Eyes: blurred vision. ENT: hearing loss, scratchy throat and hoarseness. Cardiovascular: negative. Respiratory: negative. Gastrointestinal: abdominal cramps, nausea and constipation. Genitourinary: negative. Musculoskeletal: diffuse joint pain, generalized muscle aches, back pain, joint swelling, joint stiffness and limping. Integumentary and Breasts: negative. Neurological: dizziness, tingling and Left lower extremity tingling The patient presents with complaints of leg weakness (Left Lower extremity ). Psychiatric: anxiety. Endocrine: hot flashes and night sweats. Hematologic and Lymphatic: negative. Active Problems 1. Backache (724.5) 2. Diabetes mellitus (250.00) ?? pre diabetes 3. Hip pain (719.45) 4. Hypertension (401.9) 5. Lumbar herniated disc (722.10) 6. Lumbar radiculopathy (724.4) 7. Morbid obesity (278.01) Past Medical History ?? History of Alopecia (704.00) ?? History of Anxiety (300.00) ?? History of Benign essential hypertension (401.1) ?? History of Colonoscopy (Fiberoptic) ?? History [...] smoked tobacco Current Meds Medication Name Instruction Doxazosin Mesylate 1 MG Oral Tablet TAKE 3 TABLETS EVERY NIGHT AT BEDTIME Lancets Miscellaneous USE DIRECTED. Lidocaine 5 % External Patch APPLY 1 PATCH TO THE AFFECTED AREA AND LEAVE IN PLACE FOR 12 HOURS, THEN REMOVE AND LEAVE OFF FOR 12 HOURS. Pristiq 100 MG Oral Tablet Extended Release 24 Hour 1 tablet daily TraMADol HCl - 50 MG Oral Tablet TAKE 1 TO 2 TABLETS EVERY 6 HOURS NEEDED FOR PAIN. Tylenol Extra Strength 500 MG Oral Tablet TAKE 1 TABLET EVERY 4 TO 6 HOURS NEEDED. TiZANidine HCl - 2 MG Oral Tablet 1/2 to 1 pill po tid prn spasms TraZODone HCl - 50 MG Oral Tablet TAKE 1-2 TABLETS AT BEDTIME NEEDED. Zipsor 25 MG Oral Capsule TAKE ONE CAPSULE BY MOUTH THREE TO FOUR TIMES DAILY NEEDED FOR PAIN Allergies 1. JORGITO Inhibitors 2. Actos TABS 3. Beta Adrenergic Blockers 4. Flexeril TABS 5. Hydrochlorothiazide TABS 6. Hyzaar TABS 7. Losartan Potassium TABS 8. MetFORMIN HCl TABS 9. Norvasc TABS 10. Spironolactone TABS Denied 11. Naproxen TABS Vitals Signs [Data Includes: Current Encounter] Temperature: 98.2 F Heart Rate: 86 Respiration: 18 Systolic: 160 Diastolic: 98 Height: 5 ft 2 in Weight: 190 lb 4 oz BMI Calculated: 34.8 BSA Calculated: 1.87 O2 Saturation: 98 Physical Exam Constitutional General appearance: No acute [...] negative. Palpation of the left gluteal bursa reproduces pain. The range of motion of the [...] memory: Intact. Mood and affect: Normal. Procedure Complex spinal cord stimulator reprogramming: Analysis of the spinal cord stimulator device reveals that the patient has used her stimulator 1.6%of the time for a total of 29 hours since her last reprogramming on 02/17/2014. Total lifetime hours: 562. Patient arrived for today's appointment with her spinal cord stimulator battery completely depleted. Patient uses group B 100% of the time. Electrode polarities, pulse rate, pulse width, and amplitudes where adjusted, with a new group(C) added, in the following fashion: Program A1: Electrode polarities: 11+, 12-, 13+ Amplitudes programmed: 7.8 V (0.1-9.9) Pulse width: 90 mcs Pulse Rate: 1000 Hz Program B1: Electrode polarities: 12-, 13+ Amplitudes programmed: 6.2 V (0-10.5) Pulse width: 450 mcs Pulse Rate: 50 Hz Program B2: Electrode polarities: 10+, 11-, 12+ Amplitudes programmed: 5.5 V (0-10.5) Pulse width: 400 mcs Pulse Rate: 50 Hz Program C1: Electrode polarities: 11-, 14-, 15+ Amplitudes programmed: 2.8 V (0-10.5) Pulse width: 300 mcs Pulse Rate: 60 Hz Program C2: Electrode polarities: 7+, 15- Amplitudes programmed: 3.6 V (0-10.5) Pulse width: 300 mcs Pulse Rate: 60 Hz Program C3: Electrode polarities: 11+, 12-, 13-, 14+ Amplitudes programmed: 4.4 V (0-10.5) Pulse width: 3300 mcs Pulse Rate: 60 Hz Time spent re-charging the stimulator device: 120 minutes Time spent reprogrammin minutes A copy of the telemetry report was scanned in the patient's chart Assessment 1. History of recurrent left sacroiliac joint dysfunction, resolved since left sacroiliac joint injection 2. History of refractory left gluteal bursitis, resolved 3. Lumbar arachnoiditis; Significant analgesic and functional response to spinal cord stimulation 4. Lumbar postlaminectomy syndrome 5. History of left piriformis muscle syndrome 6. Lumbar facet arthropathy 7. Morbid obesity 8. Pre-diabetes 9. Insomnia 10. Deconditioning Plan 1. Follow-up in 2 weeks. Patient has been instructed to utilize her spinal cord stimulator device at all times. 2. Follow-up with Dr. Diogenes Neville for cognitive behavioral therapy and biofeedback. 3. Continue comprehensive physical therapy program. 4. Start an independent exercise program, particularly aqua therapy or Pilates. 5. Pharmacological measures: a. Trial with topiramate 25 mg at bedtime, titrate up as instructed to 50 mg twice daily. b. Continue trazodone 50-100 mg each bedtime for insomnia c. Continue tizanidine 2 mg half a tablet to a tablet 3 times a day when necessary muscle spasms d. Continue Zipsor 25 mg 4 times a day when necessary for mild to moderate acute breakthrough pain.I have instructed the patient not to take any other NSAIDs. e. Continue Tramadol 50 mg 1-2 tablets up to 4 times daily as needed for severe breakthrough pain 6. Follow-up at [facility]. 7. The patient has been instructed to contact my office with any questions or difficulties. The patient understands the plan and agrees to proceed accordingly. Time spent taking the patient's history, reviewing diagnostic studies, and performing a physical examination: 15 minutes Time spent counseling the patient and discussing plan of care, risks, benefits, and alternatives: 30 minutes Time spent with recharging the spinal cord stimulator device: 120 minutes Time spent reprogramming spinal cord stimulator device: 15 minutes cc: Nuris Stiles M.D. End of Encounter Meds Medication Name Instruction Doxazosin Mesylate 1 MG Oral Tablet TAKE 3 TABLETS EVERY NIGHT AT BEDTIME Lancets Miscellaneous USE DIRECTED. Lidocaine 5 % External Patch APPLY 1 PATCH TO THE AFFECTED AREA AND LEAVE IN PLACE FOR 12 HOURS, THEN REMOVE AND LEAVE OFF FOR 12 HOURS. Pristiq 100 MG Oral Tablet Extended Release 24 Hour 1 tablet daily Topiramate 25 MG Oral Tablet 1 at hs x 7 days, then 2 at hs x 7 days, then 1 in the am and 2 at hs x 7 days, then 2 in am and 2 at hs and continue TraMADol HCl - 50 MG Oral Tablet TAKE 1 TO 2 TABLETS EVERY 6 HOURS NEEDED FOR PAIN. Tylenol Extra Strength 500 MG Oral Tablet TAKE 1 TABLET EVERY 4 TO 6 HOURS NEEDED. TiZANidine HCl - 2 MG Oral Tablet 1/2 to 1 pill po tid prn spasms TraZODone HCl - 50 MG Oral Tablet TAKE 1-2 TABLETS AT BEDTIME NEEDED. Zipsor 25 MG Oral Capsule TAKE ONE CAPSULE BY MOUTH THREE TO FOUR TIMES DAILY NEEDED FOR PAIN Future Appointments Date/Time Provider Specialty Site 04/09/2014 09:45 AM Deepak Cortez M.D. Internal Medicine [facility] [place] 04/21/2014 06:30 AM Bebeto Adams M.D. Pain Management [facility] Signatures Electronically signed by : Bebeto Adams M.D.; Apr 07 2014 2:13PM EST (Author) documented in this encounter Miscellaneous Notes * Letter - Bebeto Adams - 04/07/2014 6:30 AM EST Per your request, I saw GERTRUDIS DALY today in consultation for the assessment listed below. Chief Complaint Pain in my lower back, left buttock and leg. I need my spinal cord stimulator reprogrammed. History of Present Illness Mrs. Daly returns today for follow-up evaluation and possible spinal cord stimulator reprogramming. She was last seen on 02/17/2014 for follow up of left sacroiliac joint and gluteal bursa injection performed on 01/21/2014 and reprogramming of her spinal cord stimulator device. At that time she reported 50% ongoing relief of her left buttock and lower extremity pain and complete relief of her left hip pain following her procedure. Patient underwent spinal cord stimulator implant with surgicallead placement on 11/10/[address] Damien Berg. Today, patient complains of left sided lower back pain radiating to the left buttock and lower extremity extending to the foot. Patient reports that her pain level ranges from 4-10/10 with the the use of her stimulator device. Patient reports shehas not used her stimulator device for two weeks. Prior to placement of her stimulator device, the patient's pain level was rated as a constant 8-10/10. She was unable to ambulate more than 50 feet without experiencing a severe aching pain. She describes chronic numbness in the lateral aspect of her leg and numbness in the left lower extremity. Patient denies any new bladder or bowel problems. She denies any new health concerns. Patient was last seen in follow-up at [facility] on 01/06/2014. She was last seen in follow-up with Dr. Diogenes Neville for cognitive behavioral therapy and biofeedback on 03/11/2014, and has a scheduled follow-up on 04/07/2014. Patient attends physical therapy twice weekly with significant benefit. She is not participates in anindependent exercise program, particularly aqua therapy or Pilates. Patient continues to perform home stretches recommended by physical therapy daily. In terms of medications, she continues on trazodone, tizanidine, Zipsor, tramadol, and Tylenol as needed. Patient does not experience side effects with her current medication regiment. No new diagnostic studies to review. GENE report #[id number], appropriate. Patient has completed a SOAPP questionnaire and ORT questionnaire (revealing low risk). Gene reports have been reviewed and appropriate. Random urine drug screenings have been obtained and appropriate. Patient has signed a consent for treatment with controlled substances after reviewing the document and verbalizing full understanding of the risks/benefits/alternatives/and consequences of compliance and adherence with treatment and plan of care. Patient received in hand a copy of this document. Diagnostic Studies: X-ray of the pelvis on 01/06/2014, revealed mild sclerosis about the right sacroiliac joint. X-ray of the thoracic spine on 12/09/2013, revealed minor cord stimulator electrodes positioned at T7. The thoracic spine otherwise demonstrates mild degenerative change without acute abnormality. Review of Systems Constitutional: fatigue. Head and Face: negative. Eyes: blurred vision. ENT: hearing loss, scratchy throat and hoarseness. Cardiovascular: negative. Respiratory: negative. Gastrointestinal: abdominal cramps, nausea and constipation. Genitourinary: negative. Musculoskeletal: diffuse joint pain, generalized muscle aches, back pain, joint swelling, joint stiffness and limping. Integumentary and Breasts: negative. Neurological: dizziness, tingling and Left lower extremity tingling The patient presents with complaints of leg weakness (Left Lower extremity ). Psychiatric: anxiety. Endocrine: hot flashes and night sweats. Hematologic and Lymphatic: negative. Active Problems 1. Backache (724.5) 2. Diabetes mellitus (250.00) ?? pre diabetes 3. Hip pain (719.45) 4. Hypertension (401.9) 5. Lumbar herniated disc (722.10) 6. Lumbar radiculopathy (724.4) 7. Morbid obesity (278.01) Past Medical History ?? History of Alopecia (704.00) ?? History of Anxiety (300.00) ?? History of Benign essential hypertension (401.1) ?? History of Colonoscopy (Fiberoptic) ?? History [...] smoked tobacco Current Meds Medication Name Instruction Doxazosin Mesylate 1 MG Oral Tablet TAKE 3 TABLETS EVERY NIGHT AT BEDTIME Lancets Miscellaneous USE DIRECTED. Lidocaine 5 % External Patch APPLY 1 PATCH TO THE AFFECTED AREA AND LEAVE IN PLACE FOR 12 HOURS, THEN REMOVE AND LEAVE OFF FOR 12 HOURS. Pristiq 100 MG Oral Tablet Extended Release 24 Hour 1 tablet daily TraMADol HCl - 50 MG Oral Tablet TAKE 1 TO 2 TABLETS EVERY 6 HOURS NEEDED FOR PAIN. Tylenol Extra Strength 500 MG Oral Tablet TAKE 1 TABLET EVERY 4 TO 6 HOURS NEEDED. TiZANidine HCl - 2 MG Oral Tablet 1/2 to 1 pill po tid prn spasms TraZODone HCl - 50 MG Oral Tablet TAKE 1-2 TABLETS AT BEDTIME NEEDED. Zipsor 25 MG Oral Capsule TAKE ONE CAPSULE BY MOUTH THREE TO FOUR TIMES DAILY NEEDED FOR PAIN Allergies 1. JORGITO Inhibitors 2. Actos TABS 3. Beta Adrenergic Blockers 4. Flexeril TABS 5. Hydrochlorothiazide TABS 6. Hyzaar TABS 7. Losartan Potassium TABS 8. MetFORMIN HCl TABS 9. Norvasc TABS 10. Spironolactone TABS Denied 11. Naproxen TABS Vitals Signs [Data Includes: Current Encounter] Temperature: 98.2 F Heart Rate: 86 Respiration: 18 Systolic: 160 Diastolic: 98 Height: 5 ft 2 in Weight: 190 lb 4 oz BMI Calculated: 34.8 BSA Calculated: 1.87 O2 Saturation: 98 Physical Exam Constitutional General appearance: No acute [...] negative. Palpation of the left gluteal bursa reproduces pain. The range of motion of the [...] memory: Intact. Mood and affect: Normal. Procedure Complex spinal cord stimulator reprogramming: Analysis of the spinal cord stimulator device reveals that the patient has used her stimulator 1.6%of the time for a total of 29 hours since her last reprogramming on 02/17/2014. Total lifetime hours: 562. Patient arrived for today's appointment with her spinal cord stimulator battery completely depleted. Patient uses group B 100% of the time. Electrode polarities, pulse rate, pulse width, and amplitudes where adjusted, with a new group(C) added, in the following fashion: Program A1: Electrode polarities: 11+, 12-, 13+ Amplitudes programmed: 7.8 V (0.1-9.9) Pulse width: 90 mcs Pulse Rate: 1000 Hz Program B1: Electrode polarities: 12-, 13+ Amplitudes programmed: 6.2 V (0-10.5) Pulse width: 450 mcs Pulse Rate: 50 Hz Program B2: Electrode polarities: 10+, 11-, 12+ Amplitudes programmed: 5.5 V (0-10.5) Pulse width: 400 mcs Pulse Rate: 50 Hz Program C1: Electrode polarities: 11-, 14-, 15+ Amplitudes programmed: 2.8 V (0-10.5) Pulse width: 300 mcs Pulse Rate: 60 Hz Program C2: Electrode polarities: 7+, 15- Amplitudes programmed: 3.6 V (0-10.5) Pulse width: 300 mcs Pulse Rate: 60 Hz Program C3: Electrode polarities: 11+, 12-, 13-, 14+ Amplitudes programmed: 4.4 V (0-10.5) Pulse width: 3300 mcs Pulse Rate: 60 Hz Time spent re-charging the stimulator device: 120 minutes Time spent reprogrammin minutes A copy of the telemetry report was scanned in the patient's chart Assessment 1. History of recurrent left sacroiliac joint dysfunction, resolved since left sacroiliac joint injection 2. History of refractory left gluteal bursitis, resolved 3. Lumbar arachnoiditis; Significant analgesic and functional response to spinal cord stimulation 4. Lumbar postlaminectomy syndrome 5. History of left piriformis muscle syndrome 6. Lumbar facet arthropathy 7. Morbid obesity 8. Pre-diabetes 9. Insomnia 10. Deconditioning Plan 1. Follow-up in 2 weeks. Patient has been instructed to utilize her spinal cord stimulator device at all times. 2. Follow-up with Dr. Diogenes Neville for cognitive behavioral therapy and biofeedback. 3. Continue comprehensive physical therapy program. 4. Start an independent exercise program, particularly aqua therapy or Pilates. 5. Pharmacological measures: a. Trial with topiramate 25 mg at bedtime, titrate up as instructed to 50 mg twice daily. b. Continue trazodone 50-100 mg each bedtime for insomnia c. Continue tizanidine 2 mg half a tablet to a tablet 3 times a day when necessary muscle spasms d. Continue Zipsor 25 mg 4 times a day when necessary for mild to moderate acute breakthrough pain.I have instructed the patient not to take any other NSAIDs. e. Continue Tramadol 50 mg 1-2 tablets up to 4 times daily as needed for severe breakthrough pain 6. Follow-up at [facility]. 7. The patient has been instructed to contact my office with any questions or difficulties. The patient understands the plan and agrees to proceed accordingly. Time spent taking the patient's history, reviewing diagnostic studies, and performing a physical examination: 15 minutes Time spent counseling the patient and discussing plan of care, risks, benefits, and alternatives: 30 minutes Time spent with recharging the spinal cord stimulator device: 120 minutes Time spent reprogramming spinal cord stimulator device: 15 minutes cc: Nuris Stiles M.D. End of Encounter Meds Medication Name Instruction Doxazosin Mesylate 1 MG Oral Tablet TAKE 3 TABLETS EVERY NIGHT AT BEDTIME Lancets Miscellaneous USE DIRECTED. Lidocaine 5 % External Patch APPLY 1 PATCH TO THE AFFECTED AREA AND LEAVE IN PLACE FOR 12 HOURS, THEN REMOVE AND LEAVE OFF FOR 12 HOURS. Pristiq 100 MG Oral Tablet Extended Release 24 Hour 1 tablet daily Topiramate 25 MG Oral Tablet 1 at hs x 7 days, then 2 at hs x 7 days, then 1 in the am and 2 at hs x 7 days, then 2 in am and 2 at hs and continue TraMADol HCl - 50 MG Oral Tablet TAKE 1 TO 2 TABLETS EVERY 6 HOURS NEEDED FOR PAIN. Tylenol Extra Strength 500 MG Oral Tablet TAKE 1 TABLET EVERY 4 TO 6 HOURS NEEDED. TiZANidine HCl - 2 MG Oral Tablet 1/2 to 1 pill po tid prn spasms TraZODone HCl - 50 MG Oral Tablet TAKE 1-2 TABLETS AT BEDTIME NEEDED. Zipsor 25 MG Oral Capsule TAKE ONE CAPSULE BY MOUTH THREE TO FOUR TIMES DAILY NEEDED FOR PAIN Future Appointments Date/Time Provider Specialty Site 04/09/2014 09:45 AM Deepak Cortez M.D. Internal Medicine [facility] [place] 04/21/2014 06:30 AM Bebeto Adams M.D. Pain Management [facility] Thank you very much for allowing me to participate in the care of this patient. If you have any questions, please do not hesitate to contact me. Signatures Electronically signed by : Bebeto Adams M.D.; Apr 07 2014 2:13PM EST (Author) documented in this encounter Plan of Treatment Upcoming Encounters Date Type Department Care Team (Late st Contact Info) Description 03/13/2024 2:45 PM EST Office Visit [facility] [address] [place] [address] [place] [address] Pj Ace MD 1682 Count Includes [facility] [address] [place] [address] documented as of this encounter Visit Diagnoses Not on filedocumented in this encounter Care Teams Utilization Management Rn Relationship Specialty Start Date End Date Deepak Cortez MD PCP - General 12/31/14 12/12/16 documented as of this encounter
--- OUTSIDE RECORDS SUMMARY | 2024-02-20 09:18 | XMS_ITS | Encounter Summary ---
[facility] [address] [place] [id number] Care Team Providers Care Manufacturing Planner Name Role Phone Unavailable Primary Care Provider Unavailabl e Encounter Details Date Type Department Care Team (Late st Contact Info) Description 11/10/2013 8:35 AM EDT - 11/10/2013 2:25 PM EDT Hospital Encounter [facility] [address] [place] [phone] Damien Berg MD [address] [facility] [address] [place] [address] Social History Tobacco Use Types Packs/Day Years [...] leave off for 12 hours 10/08/2013 01/30/2018 traZODone (DESYREL) 50 MG tablet Take 1-2 tablets by mouth at night as needed. 09/16/2012 01/20/2016 documented as of this encounter OR Notes * Op Note - Interface, See Report - 11/10/2013 8:35 AM EDT [place] [address] OPERATIVE REPORT PATIENT NAME: GERTRUDIS DALY ROOM NUMBER: [id number] VISIT NUMBER: [id number] DATE OF : 1955 DATE OF OPERATION: 11/10/2013 PREOPERATIVE DIAGNOSIS: Lumbar postlaminectomy syndrome. POSTOPERATIVE DIAGNOSIS: Lumbar postlaminectomy syndrome. PROCEDURE PERFORMED: Thoracic laminotomy for epidural spinal cord stimulator placement. SURGEON: Damien Berg MD ORTHOPEDIC PHYSICIAN: Poli Chaudhry PA-C ANESTHESIA: General endotracheal. BLOOD LOSS: Minimal. SPECIMEN: None. COMPLICATIONS: None. INDICATIONS FOR PROCEDURE: The patient is a 57-year-old woman who has previously undergone lumbar surgery on 2 occasions. She has had ongoing left lower back and some left leg pain that has been persistent despite extensive time and nonoperative measures. A trial of a spinal cord stimulator was very successful in ameliorating her pain. As such, she presents at this time for formal placement of the spinal cord stimulator. The nature of the procedure as well as the potential risks, complications and limitations were well outlined to the patient and her family and they have agreed to proceed with surgery. DESCRIPTION OF PROCEDURE: The patient was brought to the operating room. While on her cart, general endotracheal anesthesia was achieved. She was then turned prone onto gel rolls maintained longitudinally under her chest and abdomen. Special care was ensured to protect pressure points. Her mid-low back and upper buttocks were prepared and draped in the usual fashion. Using the C-arm and AP fluoroscopy, the T9-T10 level was marked. A vertical incision was fashioned. Underlying tissues were divided with cautery to provide exposure to the spinous processes and lamina. A Leksell rongeur was utilized to make a window in the spinous process. A Midas Adi drill was utilized to fashion a central trough which was then completed with Kerrison punch, this to expose the dura. Bleeding points were controlled with bipolar cautery, a bit of FloSeal and bone wax. A Campbell-III followed by a dummy lead were advanced cephalad in the dorsal epidural space. Ultimately, the Medtronic spinal cord stimulator lead was advanced cephalad in the dorsal epidural space. This tended to be just left of midline. The lead did not want to follow a midline course and tended to skive either to the left or right. Given her left lower extremity and left low back pain, the paracentral region on the left was felt to be acceptable. The upper portion of the lead was at the midpoint of the T7 vertebral body as desired by Dr. Adams. The lead was affixed to the surrounding tissues with lead tethers. A pocket was then fashioned in the upper buttock on the right side. The lead passer was passed from the buttock to the midline thoracic incision. The leads were then pulled through to the buttock incision. This was affixed to the spinal cord stimulator. The system was tested and impedance was appropriate. The spinal cord stimulator itself was placed into the pocket on the buttock. After irrigating the wound, the deep subcutaneous tissues were closed with 3-0 Vicryl suture. Subsequently the skin was closed in a running subcuticular fashion with a 3-0 Vicryl suture. A small coiled loop of the lead was placed in the subcutaneous space just right of midline in the thoracic incision. The paraspinous muscle and fascia was reapproximated in interrupted fashion with 0 Vicryl suture after irrigating the wound with an antibiotic-containing solution. Subcutaneous tissues were closed in layers with 3-0 Vicryl suture. The skin was closed in a running subcuticular fashion with a 3-0 Vicryl suture. Sure+Close was applied to each incision and the incisions were covered with sterile dressings. The patient did receive preoperative antibiotics. There were no overt intraoperative complications. Damien Berg MD* SK/rxcbp Voice Rec. ID #[id number] Original Voice Rec. ID #[id number] Doc ID #[id number] Revision Count: 0 cc: Damien Berg MD* <start header> [address] [address] OPERATIVE REPORT PATIENT NAME: GERTRUDIS DALY ROOM NUMBER: [id number] VISIT NUMBER: [id number] DATE OF : 1955 <end header> DO NOT TEXT EDIT THIS LINE :PET HANDLER:[id number]: Authenticated by DAMIEN BERG M.D. On 11/10/2013 03:43:03 PM documented in this encounter Plan of Treatment Upcoming Encounters Date Type Department Care Team (Late st Contact Info) Description 03/13/2024 2:45 PM EST Office Visit [facility] CARD[facility]OLOG[facility] [address] [place] [address] [place] [address] Pj Ace MD [address] [facility] [address] [place] [address] documented as of this encounter Procedures Procedure Name Priority Date/Time Associated Diagnosis Comments FL > 1 HOUR Routine 11/10/2013 6:26 AM EDT SCANNED EKG 11/10/2013 CBC (NO DIFF) Routine 11/09/2013 1:18 PM EDT POTASSIUM Routine 11/09/2013 1:18 PM EDT documented in this encounter Results * FL GREATER THAN 1 HOUR (11/10/2013 6:26 AM EDT) Anatomical Region Laterality Modality N/A Radiographic Sri ging 11/10/2013 6:26 AM EDT Narrative 11/11/2013 8:45 AM EDT FLUOROSCOPY FOR SURGERY 11/10/2013: INDICATION: ??Epidural stimulator placement. TECHNIQUE: ??A total of 30 seconds of fluoroscopy time was utilized. A single fluoroscopic spot image was saved labeled T7, T8 and T9 which shows the spinal stimulator in place. D: ??11/11/2013 E: ??11/11/2013 ? Reading Radiologist- MIAH HODGSON ? Releasing Radiologist- MIAH HODGSON ? Released Date Time- 11/11/13918 ? Jazz Musician- Landry Procedure Note Miah Rios MD - 12/23/2014 FLUOROSCOPY FOR SURGERY 11/10/2013: INDICATION: Epidural stimulator placement. TECHNIQUE: A total of 30 seconds of fluoroscopy time was utilized. A single fluoroscopic spot image was saved labeled T7, T8 and T9 which shows the spinal stimulator in place. E: 11/11/2013 Reading Radiologist- MIAH HODGSON Releasing Radiologist- MIAH HODGSON Released Date Time- 11/11/1319 Jazz Musician- Landry Damien Berg MD IMG FLUOROSCOPY ORDERABLES Fi nal Result * SCANNED EKG (11/10/2013) [facility] ECG ORDERABLES Final Result * Potassium (11/09/2013 1:18 PM EDT) Potassium 3.8 3.5 - 5.5 mmol/L [facility] Blood specimen (specimen) 11/09/2013 1:18 PM EDT Narrative [facility] [employer] [facility] - 11/09/2013 1:43 PM EDT Specimen Type: Blood Nelson Black MD LAB BLOOD ORDERABLES Final Res ult [facility] [address] [place] [address], * CBC (No diff) (11/09/2013 1:18 PM EDT) WBC 5.38 3.50 - 10.80 [facility] RBC 4.77 3.89 - 5.14 /[facility] Hemoglobin 13.9 11.5 - 15.5 g/dL [facility] Hematocrit 42.3 34.5 - 44.0 % [facility] MCV 88.7 80.0 - 99.0 fL [facility] MCH 29.1 27.0 - 31.0 pg [facility] MCHC 32.9 32.0 - 36.0 g/dL [facility] RDW-CV 13.2 11.3 - 14.5 % [facility] Platelets 222 150 - 450 [facility] Blood specimen (specimen) 11/09/2013 1:18 PM EDT Narrative [facility] - 11/09/2013 1:49 PM EDT Specimen Type: Blood us Damien Berg MD LAB BLOOD ORDERABLES Final Re sult [facility] [address] [place] [address], documented in this encounter Visit Diagnoses Not on filedocumented in this encounter
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
--- OUTSIDE RECORDS SUMMARY | 2024-02-20 09:18 | XMS_ITS | Encounter Summary ---
[facility] [address] [place] [address] Care Team Providers Care Radio Time Buyer Name Role Phone Deepak Cortez MD Primary Care Provider Unav ailable Encounter Details Date Type Department Care Team (Late st Contact Info) Description 05/14/2014 Office Visit Converted [facility] PAIN MANAGEMENT [address] [phone] Bebeto Adams MD [address] [facility] [address] [place] [address] Social History Tobacco Use Types Packs/Day Years Used Date Smoking Tobacco: Never Assessed Comments Unknown Sex and Gender Information Value Date Recorded Sex Assigned at Not on file Legal Sex Female 10:25 AM EDT Gender Identity Not on file Sexual Orientation Not on file documented as of this encounter Last Filed Vital Signs Vital Sign Reading Time Taken Comments Blood Pressure 151/90 05/14/2014 7:09 AM EST Pulse 90 05/14/2014 7:09 AM EST Temperature 36.4 ??C (97.6 ??F) 05/14/2014 7:09 AM ES T Respiratory Rate 17 05/14/2014 7:09 AM EST Oxygen Saturation 98% 05/14/2014 7:09 AM EST Inhaled Oxygen Concentration - - Weight 84.4 kg (186 lb) 05/14/2014 7:09 AM EST Height 157.5 cm (5' 2 ) 05/14/2014 7:09 AM EST Body Mass Index 34.02 05/14/2014 7:09 AM EST documented in this encounter Progress Notes * Bryan Luke - 05/14/2014 6:30 AM EST Chief Complaint Pain in my lower back, left buttock and leg. I'm using my spinal cord stimulator all the time, it's helping a lot. History of Present Illness Mrs. Daly returns today for follow-up evaluation and possible spinal cord stimulator reprogramming. She was last seen on 04/21/2014 for spinal cord stimulator reprogramming. Patient continues to report more than 80% ongoing pain relief of her left buttock and lower extremity pain and complete relief of her left hip pain following left sacroiliac joint and gluteal bursa injection performed on 01/21/2014. Patient underwent spinal cord stimulator implant with surgical supply assistant placement on 11/10/[address] Damien Berg. Patient complains of left sided lower back pain radiating to the left buttock and lower extremity extending to the foot. Patient reports a pain level ranging from 3-5/10, with the the use of her stimulator device. She reports that she is using her spinal cord stimulator device at all times, as instructed. Patient reports she can ambulate up to 1000 feet without difficulty. Prior to placement of her stimulator device, the patient's pain level was rated as a constant 8-10/10. She was unable to ambulate more than 50 feet without experiencing a severe aching pain. She describes chronic numbness in the lateral aspect of her leg and numbness in the left lower extremity.Patient denies any new bladder or bowel problems. She denies any new health concerns. Patient was last seen in follow-up at [facility] on 01/06/2014. She was last s een in follow-up with Dr. Diogenes Neville for cognitive behavioral therapy and biofeedback on 04/07/2014. Patient attends physical therapy twice weekly with significant benefit. She is not participating in an independent exercise program, particularly aqua therapy or Pilates. Patient continues to perform home stretches recommended by physical therapy daily. In terms of medications, she continues ontrazodone, Zipsor, tramadol, topiramate, and Tylenol as needed. Patient does not experience side effects with her current medication regiment. Patient reports never received the prescription of Skelaxin 800 mg one half to one tablet 3 times daily. She has discontinued time tizanidine as instructed.No new diagnostic studies to review. ABRAHAN report # [id number], appropriate. Patient has completed aSOAPP questionnaire and ORT questionnaire (revealing low risk). Abrahan reports have been reviewed and appropriate. Random [...] Current Encounter] Temperature: 97.6 F Heart Rate: 90 Respiration: 17 Systolic: 151 Diastolic: 90 Height: 5 ft 2 in Weight: 186 lb BMI Calculated: 34.02 BSA Calculated: 1.85 O2 Saturation: 98 Physical Exam Constitutional General [...] Analysis of the spinal cord stimulator device revealsthat the patient has used her stimulator device 35% of the time for a total of 194 hours since her last reprogramming on 04/21/2014. Total lifetime hours: 934. Patient uses group A 100% of the time. Electrode polarities, pulse rate, pulse width, and amplitudes where adjusted as well as cycling, was admitted to the programs. Group B was deleted, in the following fashion: Program A1: Electrode polarities: 13+, 15- Amplitudes programmed: 2.3 V (0.1-9.9) Pulse width: 450 mcs Pulse Rate: 420 Hz Program C1: Electrode polarities: 7+, 15- Amplitudes programmed: 9.4 V (0-10.5) Pulse width: 300 mcs Pulse Rate: 60 Hz Program C2: Electrode polarities:12-, 14-, 15+ Amplitudes programmed: 4.8 V (0-10.5) Pulse width: 300 mcs Pulse Rate: 60 Hz Program C3: Electrode polarities: 11+, 12-, 13-, 14+ Amplitudes programmed: 5.9 V (0-10.5) Pulse width: 3300 mcs Pulse Rate: 60 Hz Time spent reprogrammin minutes A copy [...] Insomnia 10. Deconditioning Plan 1. Follow-up in four months. Patient has been instructed to use her spinal cord stimulator device at all times. 2. Follow-up with Dr. Diogenes Neville for cognitive behavioral therapy and biofeedback. 3. Continue comprehensive physical therapy program. 4. Start an independent exercise program, particularly aqua therapy or Pilates. 5. Pharmacological measures: a. Continue topiramate 50 mg twice daily. b. Continue trazodone 50-100 mg each bedtime for insomnia c. Continue Zipsor 25 mg 4 times a day when necessary for mild to moderate acute breakthrough pain.I have instructed the patient not to take any other NSAIDs. d. Continue Tramadol 50 mg 1-2 tablets up to 4 times daily as needed for severe breakthrough pain e. Continue Lidocaine patches. g. Trial with Skelaxin 800 mg, take 1/2 to 1 three times daily as needed for muscle spasms. 6. Follow-up at [facility]. 7. The [...] 3 TIMES DAILY NEEDED FOR MUSCLE SPASM. Metaxalone 800 MG Oral Tablet (Skelaxin) TAKE [...] NSAIDs. Future Appointments Date/Time Provider Specialty Site 06/01/2014 10:30 AM , [facility] [place] 06/10/2014 09:45 AM Deepak Cortez M.D. Internal Medicine [facility] Internal Medicine at [place] 08/11/2014 07:30 AM Bebeto Adams M.D. Pain Management [facility] PAIN MANAGEMENT [place] Signatures Electronically signed by : Bebeto Adams M.D.; May 14 2014 3:41PM EST (Author) documented in this encounter Miscellaneous Notes * Letter - Bebeto Adams - 05/14/2014 6:30 AM EST Per your request, I saw GERTRUDIS DALY today in consultation for the assessment listed below. Chief Complaint Pain in my lower back, left buttock and leg. I'm using my spinal cord stimulator all the time, it's helping a lot. History of Present Illness Mrs. Daly returns today for follow-up evaluation and possible spinal cord stimulator reprogramming. She was last seen on 04/21/2014 for spinal cord stimulator reprogramming. Patient continues to report more than 80% ongoing pain relief of her left buttock and lower extremity pain and complete relief of her left hip pain following left sacroiliac joint and gluteal bursa injection performed on 01/21/2014. Patient underwent spinal cord stimulator implant with surgical supply assistant placement on 11/10/[address] Damien Berg. Patient complains of left sided lower back pain radiating to the left buttock and lower extremity extending to the foot. Patient reports a pain level ranging from 3-5/10, with the the use of her stimulator device. She reports that she is using her spinal cord stimulator device at all times, as instructed. Patient reports she can ambulate up to 1000 feet without difficulty. Prior to placement of her stimulator device, the patient's pain level was rated as a constant 8-10/10. She was unable to ambulate more than 50 feet without experiencing a severe aching pain. She describes chronic numbness in the lateral aspect of her leg and numbness in the left lower extremity.Patient denies any new bladder or bowel problems. She denies any new health concerns. Patient was last seen in follow-up at [facility] on 01/06/2014. She was last s een in follow-up with Dr. Diogenes Neville for cognitive behavioral therapy and biofeedback on 04/07/2014. Patient attends physical therapy twice weekly with significant benefit. She is not participating in an independent exercise program, particularly aqua therapy or Pilates. Patient continues to perform home stretches recommended by physical therapy daily. In terms of medications, she continues ontrazodone, Zipsor, tramadol, topiramate, and Tylenol as needed. Patient does not experience side effects with her current medication regiment. Patient reports never received the prescription of Skelaxin 800 mg one half to one tablet 3 times daily. She has discontinued time tizanidine as instructed.No new diagnostic studies to review. ABRAHAN report # [id number], appropriate. Patient has completed aSOAPP questionnaire and ORT questionnaire (revealing low risk). Abrahan reports have been reviewed and appropriate. Random [...] Current Encounter] Temperature: 97.6 F Heart Rate: 90 Respiration: 17 Systolic: 151 Diastolic: 90 Height: 5 ft 2 in Weight: 186 lb BMI Calculated: 34.02 BSA Calculated: 1.85 O2 Saturation: 98 Physical Exam Constitutional General [...] Analysis of the spinal cord stimulator device revealsthat the patient has used her stimulator device 35% of the time for a total of 194 hours since her last reprogramming on 04/21/2014. Total lifetime hours: 934. Patient uses group A 100% of the time. Electrode polarities, pulse rate, pulse width, and amplitudes where adjusted as well as cycling, was admitted to the programs. Group B was deleted, in the following fashion: Program A1: Electrode polarities: 13+, 15- Amplitudes programmed: 2.3 V (0.1-9.9) Pulse width: 450 mcs Pulse Rate: 420 Hz Program C1: Electrode polarities: 7+, 15- Amplitudes programmed: 9.4 V (0-10.5) Pulse width: 300 mcs Pulse Rate: 60 Hz Program C2: Electrode polarities:12-, 14-, 15+ Amplitudes programmed: 4.8 V (0-10.5) Pulse width: 300 mcs Pulse Rate: 60 Hz Program C3: Electrode polarities: 11+, 12-, 13-, 14+ Amplitudes programmed: 5.9 V (0-10.5) Pulse width: 3300 mcs Pulse Rate: 60 Hz Time spent reprogrammin minutes A copy [...] Insomnia 10. Deconditioning Plan 1. Follow-up in four months. Patient has been instructed to use her spinal cord stimulator device at all times. 2. Follow-up with Dr. Diogenes Neville for cognitive behavioral therapy and biofeedback. 3. Continue comprehensive physical therapy program. 4. Start an independent exercise program, particularly aqua therapy or Pilates. 5. Pharmacological measures: a. Continue topiramate 50 mg twice daily. b. Continue trazodone 50-100 mg each bedtime for insomnia c. Continue Zipsor 25 mg 4 times a day when necessary for mild to moderate acute breakthrough pain.I have instructed the patient not to take any other NSAIDs. d. Continue Tramadol 50 mg 1-2 tablets up to 4 times daily as needed for severe breakthrough pain e. Continue Lidocaine patches. g. Trial with Skelaxin 800 mg, take 1/2 to 1 three times daily as needed for muscle spasms. 6. Follow-up at [facility]. 7. The [...] 3 TIMES DAILY NEEDED FOR MUSCLE SPASM. Metaxalone 800 MG Oral Tablet (Skelaxin) TAKE [...] NSAIDs. Future Appointments Date/Time Provider Specialty Site 06/01/2014 10:30 AM , [facility] [place] 06/10/2014 09:45 AM Deepak Cortez M.D. Internal Medicine [facility] Internal Medicine at [place] 08/11/2014 07:30 AM Bebeto Adams M.D. Pain Management [facility] PAIN MANAGEMENT [place] Thank you very much for allowing me to participate in the care of this patient. If you have any questions, please do not hesitate to contact me. Signatures Electronically signed by : Bebeto Adams M.D.; May 14 2014 3:41PM EST (Author) documented in this encounter Plan of Treatment Upcoming Encounters Date Type Department Care Team (Late st Contact Info) Description 03/13/2024 2:45 PM EST Office Visit [facility] CARDIOLOGY [address] [facility] [place] [phone] Pj Ace MD [address] [facility] [place] [address] documented as of this encounter Visit Diagnoses Not on filedocumented in this encounter Care Teams Radio Time Buyer Relationship Specialty Start Date End Date Deepak Cortez MD PCP - General 12/31/14 12/12/16 documented as of this encounter
--- OUTSIDE RECORDS SUMMARY | 2024-02-20 09:18 | XMS_ITS | Encounter Summary ---
[facility] Address [address] [place] [address] Care Team Providers Care [employer] Advisor Name Role Phone Deepak Cortez MD Primary Care Provider Unav ailable Encounter Details Date Type Department Care Team (Late st Contact Info) Description 08/08/2013 Telephone Converted [facility] HISTORICAL CONV [address] [place] [address] Provider, MD Aiyana [address] [place] [id number] Social History Tobacco Use Types Packs/Day Years Used Date Smoking Tobacco: Never Assessed Comments Unknown Sex and Gender Information Value Date Recorded Sex Assigned at Not on file Legal Sex Female 10:25 AM EDT Gender Identity Not on file Sexual Orientation Not on file documented as of this encounter Miscellaneous Notes * Telephone Encounter - Interface, See Report - 08/08/2013 11:53 AM EDT Message Recorded as Task Date: 08/08/2013 09:39 AM, Created By: Ariella Sandra Task Name: Patient Call Back Assigned To: Francis Jaimes Regarding Patient: GERTRUDIS DALY, Status: Active Comment: Ariella Sandra - 08 Aug 2013 9:39 AM TASK CREATED Caller: Self; Results Inquiry; ; Patient is waiting on the results of her b/p check from this morning. She can be reached at [phone] Francis Jaimes - 08 Aug 2013 11:53 AM TASK EDITED this is a duplicate task, task has been completed. Signatures Electronically signed by : Francis Jaimes, ; Aug 08 2013 11:53AM EST (Author) documented in this encounter Plan of Treatment Upcoming Encounters Date Type Department Care Team (Late st Contact Info) Description 03/13/2024 2:45 PM EST Office Visit [facility] CARD[facility] [address] [place] [address] [place] [address] Pj Ace MD [address] [facility] [address] [facility] [address] [place] [address] documented as of this encounter Visit Diagnoses Not on filedocumented in this encounter Care Teams [employer] Advisor Relationship Specialty Start Date End Date Deepak Cortez MD PCP - General 12/31/14 12/12/16 documented as of this encounter
--- OUTSIDE RECORDS SUMMARY | 2024-02-20 09:18 | XMS_ITS | Encounter Summary ---
Author Organization [facility] yste Address [address] [place] [address] Care Team Providers Care Brand Advisor Name Role Phone Deepak Cortez MD Primary Care Provider Unav ailable Encounter Details Date Type Department Care Team (Late st Contact Info) Description 04/21/2014 Office Visit Converted [facility] [address] [phone] Bebeto Adams MD [address] [facility] [address] [place] [address] Social History Tobacco Use Types Packs/Day Years Used Date Smoking Tobacco: Never Assessed Comments Unknown Sex and Gender Information Value Date Recorded Sex Assigned at Not on file Legal Sex Female 10:25 AM EDT Gender Identity Not on file Sexual Orientation Not on file documented as of this encounter Last Filed Vital Signs Vital Sign Reading Time Taken Comments Blood Pressure 129/77 04/21/2014 6:58 AM EST Pulse 90 04/21/2014 6:58 AM EST Temperature 36.2 ??C (97.1 ??F) 04/21/2014 6:58 AM ES T Respiratory Rate 18 04/21/2014 6:58 AM EST Oxygen Saturation 97% 04/21/2014 6:58 AM EST Inhaled Oxygen Concentration - - Weight 85.5 kg (188 lb 7.9 oz) 04/21/2014 6:58 A M EST Height - - Body Mass Index 34.48 04/07/2014 6:38 AM EST documented in this encounter Progress Notes * Bebeto Adams - 04/21/2014 6:30 AM EST Chief Complaint Pain in my lower back, left buttock and leg. I'm using my spinal cord stimulator all the time, it's helping a lot. History of Present Illness Mrs. Daly returns today for follow-up evaluation and possible spinal cord stimulator reprogramming. She was last seen on 04/07/2014 for spinal cord stimulator reprogramming. Patient continues to report more than 50% ongoing pain relief of her left buttock and lower extremity pain and complete relief of her left hip pain following left sacroiliac joint and gluteal bursa injection performed on 01/21/2014. Patient underwent spinal cord stimulator implant with surgical services asst placement on 11/10/[address] Damien Berg. Patient complains of left sided lower back pain radiating to the left buttock and lower extremity extending to the foot. Patient reports a pain level ranging from 3-5/10, with the the use of her stimulator device. Patient reports utilizing her spinal cord stimulator device at all times, as instructed. Patient reports going to the mall on Sunday, where she was able to ambulate up to 1000 feet without difficulty. Prior to placement of her stimulator device, the patient's pain level was rated as a constant 8-10/10. She was unable to ambulate more than 50 feet without expe riencing a severe aching pain. She describes chronic numbness in the lateral aspect of her leg and numbness in the left lower extremity. Patient denies any new bladder or bowel problems. She deniesany new health concerns. Patient was last seen in follow-up at [facility] on 01/06/2014. She was last seen in follow-up with Dr. Diogenes Neville for cognitive behavioral therapy and biofeedback on 03/11/2014, and has a scheduled follow-up on 04/07/2014. Patient attends physical therapy twice weekly with significant benefit. She is not participating in an independent exercise program, particularly aqua therapy or Pilates. Patient continues to perform home stretch es recommended by physical therapy daily. In terms of medications, she continues on trazodone, tizanidine, Zipsor, tramadol, topiramate, and Tylenol as needed. Patient does not experience side effects with her current medication regiment. No new diagnostic studies to review. GENE report # [id number], appropriate. Patient has completed a SOAPP questionnaire and ORT questionnaire (revealing low risk). Gene reports have been reviewed and appropriate. Random urine drug screenings have been obtained and appropriate. Patient has signed a consent for treatment with controlled substances after reviewing the document and verbalizing full understanding of the risks, benefits, alternatives, and conse quences of compliance and adherence with treatment and [...] Current Encounter] Temperature: 97.1 F Heart Rate: 90 Respiration: 18 Systolic: 129 Diastolic: 77 Weight: 188 lb 8 oz BMI Calculated: 34.48 BSA Calculated: 1.86 O2 Saturation: 97 Physical Exam Constitutional General [...] the patient has used her stimulator device 53% of the time for a total of 177 hours since her last reprogramming on 04/07/2014. Total lifetime hours: 740. Patient uses group C 100% of the time. Electrode polarities, pulse rate, pulse width, and amplitudes where adjusted, Group B was deleted, in the following fashion: Program A1: Electrode polarities: 12+, 14-, 15- Amplitudes programmed: 4.4 V (0.1-9.9) Pulse width: 90 mcs Pulse Rate: 1000 Hz Program C1: Electrode polarities: 7+, 15- Amplitudes programmed: 9.4 V (0-10.5) Pulse width: 300 mcs Pulse Rate: 60 Hz Program C2: Electrode polarities:12-, 15+ Amplitudes programmed: 4.8 V (0-10.5) Pulse [...] 50-100 mg each bedtime for insomnia c. Discontinue tizanidine d. Continue Zipsor 25 mg 4 times a day when necessary for mild to moderate acute breakthrough pain.I have instructed the patient not to take any other NSAIDs. e. Continue Tramadol 50 mg 1-2 tablets up to 4 times daily as needed for severe breakthrough pain f. Continue Lidocaine patches. g. Trial with Skelaxin 800 mg, take 1/2 to 1 three times daily as needed for muscle spasms. 6. Follow-up at [facility]. 7. [...] NIGHT AT BEDTIME Lancets Miscellaneous USE DIRECTED. Pristiq 100 MG Oral Tablet Extended Release 24 Hour 1 tablet daily TraMADol HCl - 50 MG Oral Tablet TAKE 1 TO 2 TABLETS EVERY 6 HOURS NEEDED FOR PAIN. Tylenol Extra Strength 500 MG Oral Tablet TAKE 1 TABLET EVERY 4 TO 6 HOURS NEEDED. Lidocaine 5 % External Patch APPLY 1 PATCH TO THE AFFECTED AREA AND LEAVE IN PLACE FOR 12 HOURS, THEN REMOVE AND LEAVE OFF FOR 12 HOURS. Metaxalone 800 MG Oral Tablet (Skelaxin) TAKE 1/2 to 1 TABLET 3 TIMES DAILY NEEDED FOR MUSCLE SPASM. TiZANidine HCl - 2 MG Oral Tablet 1/2 to 1 pill po tid prn spasms Topiramate 50 MG Oral Tablet TAKE 1 TABLET TWICE DAILY. TraZODone HCl - 50 MG Oral Tablet TAKE 1-2 TABLETS AT BEDTIME NEEDED. Zipsor 25 MG Oral Capsule one pill up to four times daily as needed for pain. Do NOT take with any other NSAIDs. Future Appointments Date/Time Provider Specialty Site 05/07/2014 09:30 AM , [facility] 05/14/2014 06:30 AM Bebeto Adams M.D. Pain Management [facility] 06/10/2014 09:45 AM Deepak Cortez M.D. Internal Medicine [facility] [place] Signatures Electronically signed by : Bebeto Adams M.D.; Apr 21 2014 2:27PM EST (Author) documented in this encounter Miscellaneous Notes * Letter - Bebeto Adams - 04/21/2014 6:30 AM EST Per your request, I [...] stimulator reprogramming. She was last seen on 04/07/2014 for spinal cord stimulator reprogramming. Patient continues to report more than 50% ongoing pain relief of her left buttock and lower extremity pain and complete relief of her left hip pain following left sacroiliac joint and gluteal bursa injection performed on 01/21/2014. Patient underwent spinal cord stimulator implant with surgical services asst placement on 11/10/[address] Damien Berg. Patient complains of left sided lower back pain radiating to the left buttock and lower extremity extending to the foot. Patient reports a pain level ranging from 3-5/10, with the the use of her stimulator device. Patient reports utilizing her spinal cord stimulator device at all times, as instructed. Patient reports going to the mall on Sunday, where she was able to ambulate up to 1000 feet without difficulty. Prior to placement of her stimulator device, the patient's pain level was rated as a constant 8-10/10. She was unable to ambulate more than 50 feet without expe riencing a severe aching pain. She describes chronic numbness in the lateral aspect of her leg and numbness in the left lower extremity. Patient denies any new bladder or bowel problems. She deniesany new health concerns. Patient was last seen in follow-up at [facility] on 01/06/2014. She was last seen in follow-up with Dr. Diogenes Neville for cognitive behavioral therapy and biofeedback on 03/11/2014, and has a scheduled follow-up on 04/07/2014. Patient attends physical therapy twice weekly with significant benefit. She is not participating in an independent exercise program, particularly aqua therapy or Pilates. Patient continues to perform home stretch es recommended by physical therapy daily. In terms of medications, she continues on trazodone, tizanidine, Zipsor, tramadol, topiramate, and Tylenol as needed. Patient does not experience side effects with her current medication regiment. No new diagnostic studies to review. GENE report # [id number], appropriate. Patient has completed a SOAPP questionnaire and ORT questionnaire (revealing low risk). Gene reports have been reviewed and appropriate. Random urine drug screenings have been obtained and appropriate. Patient has signed a consent for treatment with controlled substances after reviewing the document and verbalizing full understanding of the risks, benefits, alternatives, and conse quences of compliance and adherence with treatment and [...] Current Encounter] Temperature: 97.1 F Heart Rate: 90 Respiration: 18 Systolic: 129 Diastolic: 77 Weight: 188 lb 8 oz BMI Calculated: 34.48 BSA Calculated: 1.86 O2 Saturation: 97 Physical Exam Constitutional General [...] the patient has used her stimulator device 53% of the time for a total of 177 hours since her last reprogramming on 04/07/2014. Total lifetime hours: 740. Patient uses group C 100% of the time. Electrode polarities, pulse rate, pulse width, and amplitudes where adjusted, Group B was deleted, in the following fashion: Program A1: Electrode polarities: 12+, 14-, 15- Amplitudes programmed: 4.4 V (0.1-9.9) Pulse width: 90 mcs Pulse Rate: 1000 Hz Program C1: Electrode polarities: 7+, 15- Amplitudes programmed: 9.4 V (0-10.5) Pulse width: 300 mcs Pulse Rate: 60 Hz Program C2: Electrode polarities:12-, 15+ Amplitudes programmed: 4.8 V (0-10.5) Pulse [...] 50-100 mg each bedtime for insomnia c. Discontinue tizanidine d. Continue Zipsor 25 mg 4 times a day when necessary for mild to moderate acute breakthrough pain.I have instructed the patient not to take any other NSAIDs. e. Continue Tramadol 50 mg 1-2 tablets up to 4 times daily as needed for severe breakthrough pain f. Continue Lidocaine patches. g. Trial with Skelaxin 800 mg, take 1/2 to 1 three times daily as needed for muscle spasms. 6. Follow-up at [facility]. 7. [...] NIGHT AT BEDTIME Lancets Miscellaneous USE DIRECTED. Pristiq 100 MG Oral Tablet Extended Release 24 Hour 1 tablet daily TraMADol HCl - 50 MG Oral Tablet TAKE 1 TO 2 TABLETS EVERY 6 HOURS NEEDED FOR PAIN. Tylenol Extra Strength 500 MG Oral Tablet TAKE 1 TABLET EVERY 4 TO 6 HOURS NEEDED. Lidocaine 5 % External Patch APPLY 1 PATCH TO THE AFFECTED AREA AND LEAVE IN PLACE FOR 12 HOURS, THEN REMOVE AND LEAVE OFF FOR 12 HOURS. Metaxalone 800 MG Oral Tablet (Skelaxin) TAKE 1/2 to 1 TABLET 3 TIMES DAILY NEEDED FOR MUSCLE SPASM. TiZANidine HCl - 2 MG Oral Tablet 1/2 to 1 pill po tid prn spasms Topiramate 50 MG Oral Tablet TAKE 1 TABLET TWICE DAILY. TraZODone HCl - 50 MG Oral Tablet TAKE 1-2 TABLETS AT BEDTIME NEEDED. Zipsor 25 MG Oral Capsule one pill up to four times daily as needed for pain. Do NOT take with any other NSAIDs. Future Appointments Date/Time Provider Specialty Site 05/07/2014 09:30 AM , [facility] 05/14/2014 06:30 AM Bebeto Adams M.D. Pain Management [facility] 06/10/2014 09:45 AM Deepak Cortez M.D. Internal Medicine [facility] [place] Thank you very much for allowing me to participate in the care of this patient. If you have any questions, please do not hesitate to contact me. Signatures Electronically signed by : Bebeto Adams M.D.; Apr 21 2014 2:27PM EST (Author) documented in this encounter Plan of Treatment Upcoming Encounters Date Type Department Care Team (Late st Contact Info) Description 03/13/2024 2:45 PM EST Office Visit [facility] [address] [facility] [address] [place] [address] [place] [address] Pj Ace MD [address] [facility] [address] [place] [address] documented as of this encounter Visit Diagnoses Not on filedocumented in this encounter Care Teams Brand Advisor Relationship Specialty Start Date End Date Deepak Cortez MD PCP - General 12/31/14 12/12/16 documented as of this encounter
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
--- OUTSIDE RECORDS SUMMARY | 2024-02-20 09:18 | XMS_ITS | Encounter Summary ---
[facility] Address [address] [place] [address] Care Team Providers Care Tip Printer Name Role Phone Deepak Cortez MD Primary Care Provider Unav ailable Encounter Details Date Type Department Care Team (Late st Contact Info) Description 06/20/2013 Office Visit Converted [facility] INTERNAL MEDICINE [address] [place] [address] Leidy Robertson MD [address] [place] [address] Social History Tobacco Use Types Packs/Day Years Used Date Smoking Tobacco: Never Assessed Comments Unknown Sex and Gender Information Value Date Recorded Sex Assigned at Not on file Legal Sex Female 10:25 AM EDT Gender Identity Not on file Sexual Orientation Not on file documented as of this encounter Last Filed Vital Signs Vital Sign Reading Time Taken Comments Blood Pressure 130/84 06/20/2013 12:50 PM EDT Pulse 92 06/20/2013 12:50 PM EDT Temperature 36.7 ??C (98 ??F) 06/20/2013 12:50 PM EDT Respiratory Rate - - Oxygen Saturation - - Inhaled Oxygen Concentration - - Weight 89.4 kg (197 lb 1.1 oz) 06/20/2013 12:50 PM EDT Height - - Body Mass Index 36.04 04/29/2013 3:15 PM EST documented in this encounter Progress Notes * Leidy Robertson MD - 06/20/2013 12:30 PM EDT Chief Complaint Patient is here to follow up for hypertension, hyperlipidemia, and diabetes. TI: History of Present Illness Primary Care Cardiac Diagnostic Constellation: The patient is here today for a follow-up visit. Her diabetes mellitus type 2 is worsening. Trying to control through diet, did not want meds. Her hypertension is primary and bp's controlled at home, but stable. The patient is adherent with her medication regimen. She denies medication side effects. Her hyperlipidemia has been stable. Her LDL goal is 100 mg/dL. The patient is not adherent with hermedication regimen. Forgot to take. She has no significant interval events. Symptoms: The patient denies any symptoms currently. Lifestyle and Disease Management: Diet: She does not have a healthy diet. Heavy in carbs. Weight Issues: She has weight concerns. Exercise: She does not exercise regularly. Smoking: She does not use tobacco. Drug Use: She denies drug use. She reports no change in weight. Review of Systems Complete-Female: Constitutional: negative. Cardiovascular: negative. Respiratory: negative. Active Problems 1. Alopecia (704.00) 2. Backache (724.5) 3. Benign essential hypertension (401.1) 4. Diabetes mellitus (250.00) ?? pre diabetes 5. Dizziness (780.4) 6. Encounter for long-term (current) use of medications (V58.69) 7. Hyperlipidemia (272.4) 8. Insomnia (780.52) 9. Lumbar herniated disc (722.10) 10. Lumbar radiculopathy (724.4) 11. Lumbar radiculopathy (724.4) 12. Migraine headache (346.90) 13. Morbid obesity (278.01) 14. Myofascial pain syndrome (729.1) 15. Stress reaction, emotional (308.0) 16. Urinary tract infection (599.0) 17. Vitamin d deficiency (268.9) Past Medical History [...] BSO Family History ?? Family history of Type 2 Diabetes Mellitus Social History ?? Caffeine Use ?? Marital History - Currently ?? History of Marital History - (V61.03) ?? Never Drank Alcohol ?? Never smoked tobacco Current Meds Medication Name Instruction Emilia Contour Test In Vitro Strip USE DIRECTED. Edarbyclor 40-12.5 MG Oral Tablet TAKE TWO TABLETS BY MOUTH EVERY DAY Lancets Miscellaneous USE DIRECTED. Omeprazole 20 MG Oral Capsule Delayed Release [...] 5. Hydrochlorothiazide TABS 6. Hyzaar TABS 7. MetFORMIN HCl TABS 8. Norvasc TABS 9. Spironolactone TABS Vitals Signs [Data Includes: Current Encounter] Temperature: 98 F Heart Rate: 92 Systolic: 130 Diastolic: 84 Weight: 197 lb 1 oz BMI Calculated: 36.04 BSA Calculated: 1.9 Physical Exam General Complete Exam (Brief): Constitutional General appearance: No acute distress, well appearing and well nourished. Obese. Pulmonary Respiratory effort: No increased work of breathing or signs of respiratory distress. Auscultation of lungs: Clear to auscultation. Neck Neck: Supple, symmetric, trachea midline, no masses. Thyroid: Normal, no thyromegaly. Cardiovascular Auscultation of heart: Normal rate and rhythm, normal S1 and S2, without murmurs. Carotids normal. Examination of extremities for edema and/or varicosities: Normal. Assessment 1. Diabetes mellitus (250.00) ?? pre diabetes 2. Hyperlipidemia (272.4) Plan Diabetes mellitus ?? In Office A1C Status: Resulted - Requires Verification Done: 20Jun2013 01:44PM Health Maintenance ?? Omeprazole 20 MG Oral Capsule Delayed Release; TAKE ONE CAPSULE BY MOUTH EVERY DAY ?? Pristiq 50 MG Oral Tablet Extended Release 24 Hour; Take once daily ?? Spironolactone 50 MG Oral Tablet; TAKE 1 TABLET DAILY does not want to go on metformin yet will work harder on diet needs fasting lipids done and anticipate putting her back on statin follow up 3 mos. End of Encounter Meds Medication Name Instruction Emilia Contour Test In Vitro Strip USE DIRECTED. Chlorthalidone 25 MG Oral Tablet TAKE 1 TABLET DAILY. Doxazosin Mesylate 1 MG Oral Tablet take 1 pill at bedtime, may increase to 2 pills if bp high Lancets Miscellaneous USE DIRECTED. Omeprazole 20 MG Oral Capsule Delayed Release TAKE ONE CAPSULE BY MOUTH EVERY DAY Pristiq 50 MG Oral Tablet Extended Release 24 Hour Take once daily Spironolactone 50 MG Oral Tablet TAKE 1 TABLET DAILY. TiZANidine HCl - 2 MG Oral Tablet 1/2 to 1 pill po tid prn spasms TraZODone HCl - 50 MG Oral Tablet TAKE 1-2 TABLETS AT BEDTIME NEEDED. Future Appointments Date/Time Provider Specialty Site 11/14/2013 03:15 PM Leidy Robertson M.D. Internal Medicine [facility] [place] Signatures Electronically signed by : eLidy Robertson M.D.; Jul 27 2013 3:29PM EST (Author) documented in this encounter Plan of Treatment Upcoming Encounters Date Type Department Care Team (Late st Contact Info) Description 03/13/2024 2:45 PM EST Office Visit [facility] C[facility] [address] [facility] [place] [address] Pj Ace MD [address] [facility] [address] [facility] [address] [place] [address] documented as of this encounter Visit Diagnoses Not on filedocumented in this encounter Care Teams Tip Printer Relationship Specialty Start Date End Date Deepak Cortez MD PCP - General 12/31/14 12/12/16 documented as of this encounter
--- OUTSIDE RECORDS SUMMARY | 2024-02-20 09:18 | XMS_ITS | Encounter Summary ---
[facility] Address [address] [place] [id number] Care Team Providers Care Transmission Technician Name Role Phone Deepak Cortez MD Primary Care Provider Unav ailable Reason for Visit * Reason Comments Annual Exam Encounter Details Date Type Department Care Team (Late st Contact Info) Description 04/09/2014 Office Visit Converted [facility] INTERNAL MEDICINE [address] [place] [address] Deepak Cortez MD Social History [...] Sign Reading Time Taken Comments Blood Pressure 140/88 04/09/2014 10:08 AM EST Pulse 88 04/09/2014 10:08 AM EST Temperature 36.4 ??C (97.6 ??F) 04/09/2014 10:[address] Respiratory Rate - - Oxygen Saturation - - Inhaled Oxygen Concentration - - Weight 85.1 kg (187 lb 8 oz) 04/09/2014 10:08 AM EST Height - - Body Mass Index 34.29 04/07/2014 6:38 AM EST documented in this encounter Progress Notes * Deepak Cortez MD - 04/09/2014 9:45 AM EST Chief Complaint Physical exam History of Present Illness HM, Adult Female: The patient is being seen for a health maintenance evaluation. The last health maintenance visit was year(s) ago. General Health: The patient's health is described as good. She has regular dental visits. She denies vision problems. She denies hearing loss. Lifestyle:. She does not have a healthy diet. She does not have any weight concerns. She does not exercise regularly. She does not use tobacco. Reproductive health: the patient is postmenopausal. Screening: HPI: SHe had a mammo in September 2012 and was recommended to have a f/u bilateral diagnostic mammo in 6mo. She had a colonoscopy in 2008 and had a sessile polyp. She hasn't had one since. Had a hystercetomy Review of Systems Constitutional: fatigue. Head and Face: no facial pain and no facial pressure. Eyes: no eye pain and eyes not red. ENT: no earache and no hearing loss. Cardiovascular: no chest pain, no palpitations, the heart is not racing and no lightheadedness. Respiratory: something in her throat, but no shortness of breath and no wheezing. Gastrointestinal: no abdominal pain and no abdominal bloating. Genitourinary: no dysuria and no urinary frequency. Musculoskeletal: no diffuse joint pain and no generalized muscle aches. Integumentary and Breasts: no rashes and no skin lesions. Neurological: no headache and no confusion. Psychiatric: insomnia. Active Problems 1. Backache (724.5) 2. Diabetes [...] Extended Release 24 Hour 1 tablet daily TiZANidine HCl - 2 MG Oral Tablet 1/2 to 1 pill po tid prn spasms Topiramate 25 MG Oral Tablet 1 at [...] HOURS NEEDED. Zipsor 25 MG Oral Capsule TAKE [...] Current Encounter] Temperature: 97.6 F Heart Rate: 88 Systolic: 140 Diastolic: 88 Weight: 187 lb 8 oz BMI Calculated: 34.29 BSA Calculated: 1.86 Physical Exam Constitutional General appearance: No acute [...] reflex. Canals patent without erythema. Hearing: Normal. Oropharynx: Normal with no erythema, edema, exudate or lesions. Pulmonary Respiratory effort: No increased work of breathing or signs of respiratory distress. Auscultation of lungs: Clear to auscultation. Cardiovascular Auscultation of heart: Normal rate and rhythm, normal S1 and S2, no murmurs. Examination of extremities for edema and/or varicosities: Normal. Chest Breasts: Normal, no dimpling or skin changes appreciated. Palpation of breasts and axillae: Normal, no masses palpated. Assessment 1. Hypertension (401.9) 2. Diabetes mellitus (250.00) ?? pre diabetes 3. History of Spinal Stereotaxis Stimulation Of Cord 4. History of Colon polyps (211.3) 5. Encounter for preventive health examination (V70.0) 6. Morbid obesity (278.01) Plan Diabetes mellitus ?? In Office A1C; Status:Complete; Done: 09Apr2014 11:02AM ?? In Office Blood Glucose; Status:Complete; Done: 09Apr2014 11:02AM Hypertension ?? Renew: 25 MG Oral Tablet; TAKE 1 TABLET DAILY ?? CMP; Status:Hold For - Specimen Collection and/or Additional Processing; Requested for:09Apr2014; ?? Lipid Profile ( Comprehensive Panel ); Status:Hold For - Specimen Collection and/or Additional Processing; Requested for:09Apr2014; the Patient Fasting: : Yes - Y PMH: Colon polyps, Health Maintenance ?? Colonoscopy order - [id number]; Status:Hold For - Scheduling; Requested for:09Apr2014; End of Encounter Meds Medication Name Instruction [...] Extended Release 24 Hour 1 tablet daily TiZANidine HCl - 2 MG Oral Tablet 1/2 to 1 pill po tid prn spasms Topiramate 25 MG Oral Tablet 1 at [...] HOURS NEEDED. Zipsor 25 MG Oral Capsule TAKE ONE CAPSULE BY MOUTH THREE TO FOUR TIMES DAILY NEEDED FOR PAIN Future Appointments Date/Time Provider Specialty Site 04/21/2014 06:30 AM Bebeto Adams M.D. Pain Management [facility] Signatures Electronically signed by : Deepak Cortez M.D.; Apr 09 2014 11:34AM EST (Author) documented in this encounter Plan of Treatment Upcoming Encounters Date Type Department Care Team (Late st Contact Info) Description 03/13/2024 2:45 PM EST Office Visit [facility] CARDIOLOGY [address] [facility] [place] [address] Pj Ace MD [address] [facility] [address] [facility] [address] [place] [address] documented as of this encounter Visit Diagnoses Not on filedocumented in this encounter Care Teams Transmission Technician Relationship Specialty Start Date End Date Deepak Cortez MD PCP - General 12/31/14 12/12/16 documented as of this encounter
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
--- OUTSIDE RECORDS SUMMARY | 2024-02-20 09:18 | XMS_ITS | Encounter Summary ---
[facility] Address [address] [place] [address] Care Team Providers Care Flare Breaker Name Role Phone Deepak Cortez MD Primary Care Provider Unav ailable Encounter Details Date Type Department Care Team (Late st Contact Info) Description 08/11/2014 Office Visit Converted [facility] MEDICAL [facility] PAIN MANAGEMENT [address] [address] Bebeto Adams MD [address] [facility] [address] [place] [id number] Social History Tobacco Use Types Packs/Day Years Used Date Smoking Tobacco: Never Assessed Comments Unknown Sex and Gender Information Value Date Recorded Sex Assigned at Not on file Legal Sex Female 10:25 AM EDT Gender Identity Not on file Sexual Orientation Not on file documented as of this encounter Last Filed Vital Signs Vital Sign Reading Time Taken Comments Blood Pressure 135/83 08/11/2014 7:11 AM EDT Pulse 80 08/11/2014 7:11 AM EDT Temperature 36.5 ??C (97.7 ??F) 08/11/2014 7:11 AM ED T Respiratory Rate 17 08/11/2014 7:11 AM EDT Oxygen Saturation 96% 08/11/2014 7:11 AM EDT Inhaled Oxygen Concentration - - Weight 81.9 kg (180 lb 7.9 oz) 08/11/2014 7:11 A M EDT Height 157.5 cm (5' 2 ) 08/11/2014 7:11 AM EDT Body Mass Index 33.01 08/11/2014 7:11 AM EDT documented in this encounter Progress Notes * Bebeto Adams - 08/11/2014 7:30 AM EDT Chief Complaint I was doing great until I did too much working my yard weeding last week. I'm using my spinal cordstimulator all the time, it's helping a lot. History of Present Illness Mrs. Daly returns today for follow-up evaluation and possible spinal cord stimulator reprogramming. Patient underwent spinal cord stimulator implant with surgical instrument maker placement on 11/10/[address] Damien Berg. She was last seen on 05/14/2014 for spinal cord stimulator reprogramming. Patientreports more than 80% ongoing pain relief of her left buttock and lower extremity pain with the useof her spinal cord stimulator device. Over the last two days, she experienced some the left hip pain and gluteal pain with a pain level of 10/10. Patient complains of left sided lower back pain radiating to the left buttock. Patient reports a pain level ranging from 0-1/10 to 5/10, with the the useof her stimulator device. She reports that she is using her spinal cord stimulator device at all times, as instructed. The last two days with this flare up she has had less mobility. Rest helps during this time. Patient has been unable to pace her activities. Patient denies any new bladder or bowelproblems. She denies any new health concerns. Patient was last seen in follow-up at [facility] on 01/06/2014. She was last seen in follow-up with Dr. Diogenes Nevillefor cognitive behavioral therapy and biofeedback and will follow-up August 2014. Patient completed a physical therapy program. She is not participating in an independent exercise program, such as aqua therapy or Pilates. Patient continues to perform home stretches recommended by physical therapy daily. In terms of medications, she continues on trazodone, Zipsor, tramadol, topiramate, and Tylenol asneeded. Patient does not experience side effects with her current medication regiment. Patient reports never received the prescription of Skelaxin 800 mg one half to one tablet 3 times daily. She has discontinued time tizanidine as instructed. No new diagnostic studies to review. GENE report # [id number], appropriate. Patient has completed a SOAPP questionnaire and ORT questionnaire (revealing low risk). Gene reports have been reviewed and appropriate. Random urine drug screenings have been obtained and appropriate. She has signed a consent for treatment with [...] Vitals Signs [Data Includes: Current Encounter] Temperature: 97.7 F Heart Rate: 80 Respiration: 17 Systolic: 135 Diastolic: 83 Height: 5 ft 2 in Weight: 180 lb 8 oz BMI Calculated: 33.01 BSA Calculated: 1.83 O2 Saturation: 96 Physical [...] the patient has used her stimulator device 86% of the time for a total of 1847 hours since her last reprogramming on 04/21/2014. Total lifetime hours: 2782. Patient uses group A 100% of the time. Electrode polarities, pulse rate, pulse width, and amplitudes where adjusted, as well as cycling, and the following programs were reprogrammed in the following fashion: Program A1: Electrode [...] the patient's chart Assessment 1. Lumbar arachnoiditis; Significant analgesic and functional response to spinal cord stimulation 2. Lumbar postlaminectomy syndrome 3. Left piriformis muscle syndrome/myofascial 4. History of recurrent left sacroiliac joint dysfunction, resolved since left sacroiliac joint injection 5. History of refractory left gluteal bursitis, resolved 6. Lumbar facet arthropathy 7. Moderate obesity 8. Pre-diabetes 9. Insomnia 10. Deconditioning, significantly improved Plan 1. Follow-up in four months. She has received additional instruction on the appropriate use of her spinal cord stimulator device, and has been instructed to use her spinal cord stimulator device at all times. 2. Follow-up with Dr. Diogenes Neville for cognitive behavioral therapy and biofeedback. 3. Start aqua therapy 4. Pharmacological measures: [...] needed for muscle spasms. 5. Follow-up at [facility]. 6. I [...] Name Instruction Abilify 5 MG Oral Tablet (ARIPiprazole) TAKE 1/2 TABLET AT BEDTIME. Chlorthalidone 25 [...] 3 TIMES DAILY NEEDED FOR MUSCLE SPASM. Topiramate 50 MG Oral Tablet TAKE 1 TABLET TWICE DAILY. TraZODone HCl - 50 MG Oral Tablet TAKE 1-2 TABLETS AT BEDTIME NEEDED. Zipsor 25 MG Oral Capsule one pill up to four times daily as needed for pain. Do NOT take with any other NSAIDs. Future Appointments Date/Time Provider Specialty Site 11/03/2014 10:30 AM Deepak Cortez M.D. Internal Medicine [facility] Internal Medicine at [place] 12/15/2014 06:30 AM Bebeto Adams M.D. Pain Management [facility] PAIN [facility] Signatures Electronically signed by : Bebeto Adams M.D.; Aug 11 2014 9:10AM EST (Author) documented in this encounter Miscellaneous Notes * Letter - Bebeto Adams - 08/11/2014 7:30 AM EDT Per your request, I saw GERTRUDIS DALY today in consultation for the assessment listed below. Chief Complaint I was doing great until I did too much working my yard weeding last week. I'm using my spinal cordstimulator all the time, it's helping a lot. History of Present Illness Mrs. Daly returns today for follow-up evaluation and possible spinal cord stimulator reprogramming. Patient underwent spinal cord stimulator implant with surgical instrument maker placement on 11/10/[address] Damien Berg. She was last seen on 05/14/2014 for spinal cord stimulator reprogramming. Patientreports more than 80% ongoing pain relief of her left buttock and lower extremity pain with the useof her spinal cord stimulator device. Over the last two days, she experienced some the left hip pain and gluteal pain with a pain level of 10/10. Patient complains of left sided lower back pain radiating to the left buttock. Patient reports a pain level ranging from 0-1/10 to 5/10, with the the useof her stimulator device. She reports that she is using her spinal cord stimulator device at all times, as instructed. The last two days with this flare up she has had less mobility. Rest helps during this time. Patient has been unable to pace her activities. Patient denies any new bladder or bowelproblems. She denies any new health concerns. Patient was last seen in follow-up at [facility] on 01/06/2014. She was last seen in follow-up with Dr. Diogenes Nevillefor cognitive behavioral therapy and biofeedback and will follow-up August 2014. Patient completed a physical therapy program. She is not participating in an independent exercise program, such as aqua therapy or Pilates. Patient continues to perform home stretches recommended by physical therapy daily. In terms of medications, she continues on trazodone, Zipsor, tramadol, topiramate, and Tylenol asneeded. Patient does not experience side effects with her current medication regiment. Patient reports never received the prescription of Skelaxin 800 mg one half to one tablet 3 times daily. She has discontinued time tizanidine as instructed. No new diagnostic studies to review. GENE report # [id number], appropriate. Patient has completed a SOAPP questionnaire and ORT questionnaire (revealing low risk). Gene reports have been reviewed and appropriate. Random urine drug screenings have been obtained and appropriate. She has signed a consent for treatment with [...] Vitals Signs [Data Includes: Current Encounter] Temperature: 97.7 F Heart Rate: 80 Respiration: 17 Systolic: 135 Diastolic: 83 Height: 5 ft 2 in Weight: 180 lb 8 oz BMI Calculated: 33.01 BSA Calculated: 1.83 O2 Saturation: 96 Physical [...] the patient has used her stimulator device 86% of the time for a total of 1847 hours since her last reprogramming on 04/21/2014. Total lifetime hours: 2782. Patient uses group A 100% of the time. Electrode polarities, pulse rate, pulse width, and amplitudes where adjusted, as well as cycling, and the following programs were reprogrammed in the following fashion: Program A1: Electrode [...] the patient's chart Assessment 1. Lumbar arachnoiditis; Significant analgesic and functional response to spinal cord stimulation 2. Lumbar postlaminectomy syndrome 3. Left piriformis muscle syndrome/myofascial 4. History of recurrent left sacroiliac joint dysfunction, resolved since left sacroiliac joint injection 5. History of refractory left gluteal bursitis, resolved 6. Lumbar facet arthropathy 7. Moderate obesity 8. Pre-diabetes 9. Insomnia 10. Deconditioning, significantly improved Plan 1. Follow-up in four months. She has received additional instruction on the appropriate use of her spinal cord stimulator device, and has been instructed to use her spinal cord stimulator device at all times. 2. Follow-up with Dr. Diogenes Neville for cognitive behavioral therapy and biofeedback. 3. Start aqua therapy 4. Pharmacological measures: [...] needed for muscle spasms. 5. Follow-up at [facility]. 6. I [...] Name Instruction Abilify 5 MG Oral Tablet (ARIPiprazole) TAKE 1/2 TABLET AT BEDTIME. Chlorthalidone 25 [...] 3 TIMES DAILY NEEDED FOR MUSCLE SPASM. Topiramate 50 MG Oral Tablet TAKE 1 TABLET TWICE DAILY. TraZODone HCl - 50 MG Oral Tablet TAKE 1-2 TABLETS AT BEDTIME NEEDED. Zipsor 25 MG Oral Capsule one pill up to four times daily as needed for pain. Do NOT take with any other NSAIDs. Future Appointments Date/Time Provider Specialty Site 11/03/2014 10:30 AM Deepak Cortez M.D. Internal Medicine [facility] Internal Medicine at [place] 12/15/2014 06:30 AM Bebeto Adams M.D. Pain Management [facility] Thank you very much for allowing me to participate in the care of this patient. If you have any questions, please do not hesitate to contact me. Signatures Electronically signed by : Bebeto Adams M.D.; Aug 11 2014 9:10AM EST (Author) documented in this encounter Plan of Treatment Upcoming Encounters Date Type Department Care Team (Late st Contact Info) Description 03/13/2024 2:45 PM EST Office Visit [facility] CARDIOLOGY [address] [place] [address] [place] [id number] Pj Ace MD [address] [facility] [address] [facility] [address] [place] [address] documented as of this encounter Visit Diagnoses Not on filedocumented in this encounter Care Teams Flare Breaker Relationship Specialty Start Date End Date Deepak Cortez MD PCP - General 12/31/14 12/12/16 documented as of this encounter
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
--- OUTSIDE RECORDS SUMMARY | 2024-02-20 09:18 | XMS_ITS | Encounter Summary ---
Author Organization [facility] yste Address [address] [place] [address] Care Team Providers Care Regional Retail Sales Manager Name Role Phone Deepak Cortze MD Primary Care Provider Unav ailable Encounter Details Date Type Department Care Team (Late st Contact Info) Description 02/27/2014 Telephone Converted [facility] HISTORICAL [facility]V [address] [place] [address] Provider, MD Aiyana [address] [place] [address] Social History Tobacco Use Types Packs/Day Years Used Date Smoking Tobacco: Never Assessed Comments Unknown Sex and Gender Information Value Date Recorded Sex Assigned at Not on file Legal Sex Female 10:25 AM EDT Gender Identity Not on file Sexual Orientation Not on file documented as of this encounter Miscellaneous Notes * Telephone Encounter - Interface, See Report - 02/27/2014 9:47 AM EST Message Recorded as Task Date: 02/24/2014 08:47 AM, Created By: Katherine Meza Task Name: Med Renewal Request Assigned To: Francis Jaimes Regarding Patient: ADDYGERTRUDIS, Status: In Progress Comment: Katherine Meza - 24 Feb 2014 8:47 AM TASK CREATED Caller: Self; Renew Medication; ; Patient called and is requesting a refill on her blood pressure medication Doxazosin called into [facility]. Patient states that it needs to be a 90 day supply. Patient can be reached at [phone] if needed. Thanks Francis Jaimes - 24 Feb 2014 11:47 AM TASK EDITED this was escribed 02/13. Tried to call patient to notify her but she did not answer or have vm. Francis Jaimes - 24 Feb 2014 11:47 AM TASK IN PROGRESS Francis Jaimes - 25 Feb 2014 9:04 AM TASK EDITED patient did not answer and she doesn't have vm. Francis Jaimes - 27 Feb 2014 9:47 AM TASK EDITED Phone is disconnected. Signatures Electronically signed by : Francis Jaimes, ; Feb 27 2014 9:47AM EST (Author) documented in this encounter Plan of Treatment Upcoming Encounters Date Type Department Care Team (Late st Contact Info) Description 03/13/2024 2:45 PM EST Office Visit [facility] CARDIOLOGY [address] [place] [address] Pj Ace MD [address] [facility] [address] [facility] [address] [place] [address] documented as of this encounter Visit Diagnoses Not on filedocumented in this encounter Care Teams Regional Retail Sales Manager Relationship Specialty Start Date End Date Deepak Cortez MD PCP - General 12/31/14 12/12/16 documented as of this encounter
--- OUTSIDE RECORDS SUMMARY | 2024-02-20 09:18 | XMS_ITS | Encounter Summary ---
[facility] [address] [place] [address] Care Team Providers Care Pathology Laboratory Technologist Name Role Phone Deepak Cortez MD Primary Care Provider Unav ailable Encounter Details Date Type Department Care Team (Late st Contact Info) Description 07/25/2013 Office Visit Converted [facility] INTERNAL MEDICINE [address] [place] [address] Leidy Robertson MD [address] [place] [address] Social History Tobacco Use Types Packs/Day Years Used Date Smoking Tobacco: Never Assessed Comments Unknown Sex and Gender Information Value Date Recorded Sex Assigned at Not on file Legal Sex Female 10:25 AM EDT Gender Identity Not on file Sexual Orientation Not on file documented as of this encounter Last Filed Vital Signs Vital Sign Reading Time Taken Comments Blood Pressure 170/98 07/25/2013 2:27 PM EDT Pulse 94 07/25/2013 2:27 PM EDT Temperature 36.7 ??C (98.1 ??F) 07/25/2013 2:27 PM ED T Respiratory Rate - - Oxygen Saturation 96% 07/25/2013 2:27 PM EDT Inhaled Oxygen Concentration - - Weight 90 kg (198 lb 8 oz) 07/25/2013 2:27 PM ED T Height - - Body Mass Index 36.31 04/29/2013 3:15 PM EST documented in this encounter Progress Notes * Leidy Robertson MD - 07/25/2013 2:30 PM EDT Chief Complaint Patient is having trouble with bp meds and feels bad. TI: History of Present Illness HPI: losartan is causing shortness of breath and irregular heartrate-this is her typical allergic reaction, also had headache which is also typical for her allergic reaction Review of Systems Constitutional: negative. Cardiovascular: negative. Respiratory: as noted in HPI. Musculoskeletal: ongoing problems with back pain, TENS unit caused her to have more pain so doesn'twant spinal cord stimulator, sees Dr Adams, has not discussed pain pump. Active Problems 1. Alopecia (704.00) 2. Backache [...] MG Oral Tablet TAKE 1 TABLET DAILY. Lancets Miscellaneous USE DIRECTED. Omeprazole 20 MG [...] Current Encounter] Temperature: 98.1 F Heart Rate: 94 Systolic: 170 Diastolic: 98 Weight: 198 lb 8 oz BMI Calculated: 36.31 BSA Calculated: 1.91 O2 Saturation: 96, RA Physical Exam Constitutional General appearance: No acute distress, well appearing and well nourished. But in pain. Pulmonary Respiratory effort: No increased work of breathing or signs of respiratory distress. Auscultation of lungs: Clear to auscultation. Cardiovascular Auscultation of heart: Normal rate and rhythm, normal S1 and S2, without murmurs. Carotids normal. Examination of extremities for edema and/or varicosities: Normal. Assessment 1. Hypertension (401.9) Plan Benign essential hypertension ?? Start: Doxazosin Mesylate 1 MG Oral Tablet; take 1 pill at bedtime, may increase to 2 pills if bp high phone follow up next week-she will call us with bps End of Encounter Meds Medication Name Instruction [...] 03:15 PM Leidy Robertson M.D. Internal Medicine [facility] [place] Signatures Electronically signed by : Leidy Robertson M.D.; Jul 25 2013 3:13PM EST (Author) documented in this encounter Plan of Treatment Upcoming Encounters Date Type Department Care Team (Late st Contact Info) Description 03/13/2024 2:45 PM EST Office Visit [facility] CARDIOLOGY [address] [place] [address] [place] [address] Pj Ace MD [address] [facility] [address] [facility] [address] [place], [place] [id number] documented as of this encounter Visit Diagnoses Not on filedocumented in this encounter Care Teams Pathology Laboratory Technologist Relationship Specialty Start Date End Date Deepak Cortez MD PCP - General 12/31/14 12/12/16 documented as of this encounter
--- OUTSIDE RECORDS SUMMARY | 2024-02-20 09:18 | XMS_ITS | Encounter Summary ---
[facility] [address] [place] [id number] Care Team Providers Care Joint Yarner Name Role Phone Unavailable Primary Care Provider Unavailabl e Encounter Details Date Type Department Care Team (Late st Contact Info) Description 12/09/2013 7:41 AM EDT - 12/09/2013 11:59 PM EDT Hospital Encounter [facility] [address] [facility] [place] [address] Bebeto Adams MD [address] [facility] [address] [facility] [address] [place] [address] Social History Tobacco Use Types Packs/Day Years [...] to 6 hours as needed 12/09/2013 05/13/2018 Diclofenac Potassium (ZIPSOR) 25 MG capsule Take [...] CENTER CARDIOLOGY [address] [place] [address] [place] [address] Pj Ace MD [address] [facility] [address] [place] [address] documented as of this encounter Procedures Procedure Name Priority Date/Time Associated Diagnosis Comments XR SPINE THORACIC 1 VW Routine 12/09/2013 9:04 AM EDT documented in this encounter Results * X-RAY THORACIC SPINE 1 VIEW (12/09/2013 9:04 AM EDT) Anatomical Region Laterality Modality Spine, T-spine N/A Radiographic Sri ging 12/09/2013 9:04 AM EDT Narrative 12/09/2013 9:44 AM EDT THORACIC SPINE ON 12/09/2013: HISTORY: ??Back pain FINDINGS: ??AP and lateral views of the thoracic spine demonstrate spinal cord stimulator electrodes positioned at T7. The thoracic spine otherwise demonstrates mild degenerative change without acute abnormality. IMPRESSION- ??Spinal cord stimulator is noted at the level of T7. DT: ??12/09/2013 DE: ??12/09/2013 ? Reading RadiologistMerry MORALES ? Releasing RadiologistMerry MORALES ? Released Date Time- 12/09/13 1015 ? [employer]. Procedure Note Nikolas Desouza MD - 12/23/2014 THORACIC SPINE ON 12/09/2013: HISTORY: Back pain FINDINGS: AP and lateral views of the thoracic spine demonstrate spinal cord stimulator electrodes positioned at T7. The thoracic spine otherwise demonstrates mild degenerative change without acute abnormality. IMPRESSION- Spinal cord stimulator is noted at the level of T7. DE: 12/09/2013 Reading RadiologistMerry MORALES Releasing Radiologist- Ariane MORALES Released Date Time- 12/09/13 1015 [employer] HannaMDeana us Bebeto Adams MD IMG DIAGNOSTIC IMAGING ORDERA BLES Final Result documented in this encounter Visit Diagnoses Not on filedocumented in this encounter
--- OUTSIDE RECORDS SUMMARY | 2024-02-20 09:18 | XMS_ITS | Encounter Summary ---
Author Organization [facility] yste Address [address] [place] [address] Care Team Providers Care Machine Washer Name Role Phone Deepak Cortez MD Primary Care Provider Unav ailable Encounter Details Date Type Department Care Team (Late st Contact Info) Description 12/09/2013 Office Visit Converted [facility] MEDICAL [facility] PAIN MANAGEMENT [address] [address] Bebeto Adams MD [address] [facility] [address] [place] [id number] Social History Tobacco Use Types Packs/Day Years Used Date Smoking Tobacco: Never Assessed Comments Unknown Sex and Gender Information Value Date Recorded Sex Assigned at Not on file Legal Sex Female 10:25 AM EDT Gender Identity Not on file Sexual Orientation Not on file documented as of this encounter Last Filed Vital Signs Vital Sign Reading Time Taken Comments Blood Pressure 161/92 12/09/2013 6:16 AM EDT Pulse 75 12/09/2013 6:16 AM EDT Temperature 36.9 ??C (98.4 ??F) 12/09/2013 6:16 AM ED T Respiratory Rate 18 12/09/2013 6:16 AM EDT Oxygen Saturation 95% 12/09/2013 6:16 AM EDT Inhaled Oxygen Concentration - - Weight 93.5 kg (206 lb 2.1 oz) 12/09/2013 6:16 A M EDT Height 157.5 cm (5' 2 ) 12/09/2013 6:16 AM EDT Body Mass Index 37.7 12/09/2013 6:16 AM EDT documented in this encounter Progress Notes * Bebeto Adams - 12/09/2013 6:30 AM EDT Chief Complaint Pain in my lower back, buttocks, and left leg, I need my stimulator reprogrammed. History of Present Illness HPI: Mrs. Daly comes in today for reprogramming of her spinal cord stimulator device. She underwent a spinal cord stimulator implant with surgical oncologist placement on 11/10/[address] Damien Berg. Patient has remained afebrile since her surgery and reports minimal incisional pain. Patient comes in with complaints of intermittent lower back pain radiating to the left hip, left buttock, and left lower extremity to the foot. The patient reports undergoing reprogramming of her stimulator device with a [employer] employee representative at the time of her last follow up with Dr. Berg on 12/02/2013. Unfortunately, she reports that the [employer] employee representative was unable to provide adequate stimulation in the lower back, buttock, and left lower extremity. The patient rates her pain level as 4/10 with the the use of her stimulator device. Prior to placement of her stimulator device, the patient rated her pain as a constant 8- 10/10 and could ambulate no more than 50 feet without experiencing --what she described as a severe aching pain-. Patient describes chronic numbness in the lateral aspect of her leg and numbness in the bilateral lower extremities. She denies new bladder bowel problems.The patient denies any new health related issues. In terms of medications, she continues on trazodone 50-100 mg each bedtime for insomnia, and tizanidine 2 mg half a tablet to a tablet 3 times a day when necessary muscle spasms, without side effects. Additionally, the patient is currently taking tramadol 50 mg four times daily as prescribed, on 12/04/2013, for acute post-operative pain. She reports that she followed up at [facility] on 12/03/2013, and does not have a follow up scheduled at this time. GENE report #[id number], appropriate. Review of Systems Complete-Female: Constitutional: negative. Head and Face: negative. Eyes: negative. ENT: sore throat and scratchy throat. Cardiovascular: negative. Respiratory: negative. Gastrointestinal: abdominal bloating and constipation. Genitourinary: negative. [...] Current Encounter] Temperature: 98.4 F Heart Rate: 75 Respiration: 18 Systolic: 161 Diastolic: 92 Height: 5 ft 2 in Weight: 206 lb 2 oz BMI Calculated: 37.7 BSA Calculated: 1.94 O2 Saturation: 95 Physical Exam General Complete [...] without rashes or lesions. Her surgical wounds site well-healed without redness, drainage, or fluid accumulation. [...] that the patient has used her stimulator 50% of the time for a total of 81 hours since her last appointment on 11/18/2013. Total lifetime hours: 219. She uses group A 100% of the time. Complexes spinal cord simulator reprogramming was performed before obtaining an x-ray to verify lead placement as well as afterwards. Initial spinal cord stimulator programming was preformed resulting in minimal coverage. X-rays of the thoracic spine were obtained to confirm lead placement. Subsequently, the spinal cord stimulator was reprogrammed resulting in complete pain relief. Electrode polarities, pulse rate, pulse width, pulse amplitudes, where adjusted as well as the AdaptiveStim feature was enabled, in the following fashion. Program A1: Electrode polarities: 6+, 7+, 14+, 15- Amplitudes programmed: 2.8 V (0-10.5) Pulse width: 310 mcs Pulse Rate: 330 Hz Time spent reprogrammin minutes A copy [...] Pre-diabetes 9. Insomnia Plan 1. Follow-up in 3 weeks for possible spinal cord stimulator reprogramming. 2. Discontinue wearing back brace. 3. Follow-up with Dr. Diogenes Neville for cognitive behavioral therapy and biofeedback. 4. Start comprehensive physical therapy program. 5. Patient will start an independent exercise [...] 4 times daily as needed for severe post- operative pain. Prescription written for #120 tablets with no refills. 7. Follow-up at [facility]. 8. The [...] PAIN Future Appointments Date/Time Provider Specialty Site 01/06/2014 06:30 AM Bebeto Adams M.D. Pain Management [facility] PAIN MANAGEMENT [facility] Signatures Electronically signed by : Bebeto Adams M.D.; Dec 09 2013 1:53PM EST (Author) documented in this encounter Miscellaneous Notes * Letter - Bebeto Adams - 12/09/2013 6:30 AM EDT Per your request, I saw GERTRUDIS DALY today in consultation for the assessment listed below. Chief Complaint Pain in my lower back, buttocks, and left leg, I need my stimulator reprogrammed. History of Present Illness Mrs. Daly comes in today for reprogramming of her spinal cord stimulator device. She underwent a spinal cord stimulator implant with surgical oncologist placement on 11/10/[address] Damien Berg. Patient has remained afebrile since her surgery and reports minimal incisional pain. Patient comes in with complaints of intermittent lower back pain radiating to the left hip, left buttock, and left lower extremity to the foot. The patient reports undergoing reprogramming of her stimulator device with a [employer] employee representative at the time of her last follow up with Dr. Berg on 12/02/2013. Unfortunately, she reports that the [employer] employee representative was unable to provide adequate stimulation inthe lower back, buttock, and left lower extremity. The patient rates her pain level as 4/10 with the the use of her stimulator device. Prior to placement of her stimulator device, the patient rated her pain as a constant 8- 10/10 and could ambulate no more than 50 feet without experiencing --what she described as a severe aching pain-. Patient describes chronic numbness in the lateral aspect of her leg and numbness in the bilateral lower extremities. She denies new bladder bowel problems. The patient denies any new health related issues. In terms of medications, she continues on trazodone 50-100 mg each bedtime for insomnia, and tizanidine 2 mg half a tablet to a tablet 3 times a day when necessary muscle spasms, without side effects. Additionally, the patient is currently taking tramadol 50 mg four times daily as prescribed, on 12/04/2013, for acute post-operative pain. She reports that she followed up at [facility] on 12/03/2013, and does not have a follow up scheduled at this time. GENE report #[id number], appropriate. Review of Systems Constitutional: negative. Head and Face: negative. Eyes: negative. ENT: sore throat and scratchy throat. Cardiovascular: negative. Respiratory: negative. Gastrointestinal: abdominal bloating and constipation. Genitourinary: negative. [...] Current Encounter] Temperature: 98.4 F Heart Rate: 75 Respiration: 18 Systolic: 161 Diastolic: 92 Height: 5 ft 2 in Weight: 206 lb 2 oz BMI Calculated: 37.7 BSA Calculated: 1.94 O2 Saturation: 95 Physical Exam Constitutional General [...] without rashes or lesions. Her surgical wounds site well-healed without redness, drainage, or fluid accumulation. [...] that the patient has used her stimulator 50% of the time for a total of 81 hours since her last appointment on 11/18/2013. Total lifetime hours: 219. She uses group A 100% of the time. Complexes spinal cord simulator reprogramming was performed before obtaining an x-ray to verify lead placement as well as afterwards. Initial spinal cord stimulator programming was preformed resulting in minimal coverage. X-rays of the thoracic spine were obtained to confirm lead placement. Subsequently, the spinal cord stimulator was reprogrammed resulting in complete pain relief. Electrode polarities, pulse rate, pulse width, pulse amplitudes, where adjusted as well as the AdaptiveStim feature was enabled, in the following fashion. Program A1: Electrode polarities: 6+, 7+, 14+, 15- Amplitudes programmed: 2.8 V (0-10.5) Pulse width: 310 mcs Pulse Rate: 330 Hz Time spent reprogrammin minutes A copy [...] Pre-diabetes 9. Insomnia Plan 1. Follow-up in 3 weeks for possible spinal cord stimulator reprogramming. 2. Discontinue wearing back brace. 3. Follow-up with Dr. Diogenes Neville for cognitive behavioral therapy and biofeedback. 4. Start comprehensive physical therapy program. 5. Patient will start an independent exercise [...] 4 times daily as needed for severe post- operative pain. Prescription written for #120 tablets with no refills. 7. Follow-up at [facility]. 8. The [...] PAIN Future Appointments Date/Time Provider Specialty Site 01/06/2014 06:30 AM Bebeto Adams M.D. Pain Management [facility] PAIN [facility]NAGEMENT [place] Thank you very much for allowing me to participate in the care of this patient. If you have any questions, please do not hesitate to contact me. Signatures Electronically signed by : Bebeto Adams M.D.; Dec 09 2013 1:53PM EST (Author) documented in this encounter Plan of Treatment Upcoming Encounters Date Type Department Care Team (Late st Contact Info) Description 03/13/2024 2:45 PM EST Office Visit [facility] C[facility] [address] [facility] [address] [place] [address] [place] [address] Pj Ace MD [address] [place] [address] documented as of this encounter Visit Diagnoses Not on filedocumented in this encounter Care Teams Machine Washer Relationship Specialty Start Date End Date Deepak Cortez MD PCP - General 12/31/14 12/12/16 documented as of this encounter
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
--- OUTSIDE RECORDS SUMMARY | 2024-02-20 09:18 | XMS_ITS | Encounter Summary ---
Author Organization [facility] yste Address [address] [place] [address] Care Team Providers Care Doctor Osteopathic Name Role Phone Deepak Cortez MD Primary Care Provider Unav ailable Encounter Details Date Type Department Care Team (Late st Contact Info) Description 03/02/2014 Telephone Converted [facility] HISTORICAL CONV [address] [address] Provider, MD Aiyana [address] [place] [address] Social History Tobacco Use Types Packs/Day Years Used Date Smoking Tobacco: Never Assessed Comments Unknown Sex and Gender Information Value Date Recorded Sex Assigned at Not on file Legal Sex Female 10:25 AM EDT Gender Identity Not on file Sexual Orientation Not on file documented as of this encounter Miscellaneous Notes * Telephone Encounter - Interface, See Report - 03/02/2014 9:05 AM EST Message Recorded as Task Date: [...] day supply. Patient can be reached at [phone] if needed. Thanks Francis Jaimes - 24 [...] 9:47 AM TASK EDITED Phone is disconnected. Francis Jaimes - 02 Mar 2014 9:05 AM TASK EDITED Patient's phone is still disconnected. Per protocol task is completed until patient calls back. Signatures Electronically signed by : Francis Jaimes, ; Mar 02 2014 9:05AM EST (Author) documented in this encounter Plan of Treatment Upcoming Encounters Date Type Department Care Team (Late st Contact Info) Description 03/13/2024 2:45 PM EST Office Visit [facility] CARDIOLOGY [address] [place] [address] [place] [address] Pj Ace MD [address] [facility] [address] [place] [address] documented as of this encounter Visit Diagnoses Not on filedocumented in this encounter Care Teams Doctor Osteopathic Relationship Specialty Start Date End Date Deepak Cortez MD PCP - General 12/31/14 12/12/16 documented as of this encounter
--- OUTSIDE RECORDS SUMMARY | 2024-02-20 09:18 | XMS_ITS | Encounter Summary ---
Author Organization [facility] yste Address [address] [place] [address] Care Team Providers Care Ob Scrub Tech Name Role Phone Unavailable Primary Care Provider Unavailabl e Encounter Details Date Type Department Care Team (Late st Contact Info) Description 12/03/2013 9:00 AM EDT - 02/02/2014 11:59 PM [facility] Hospital Encounter [facility] ED [address] [facility] [address] [place] [address] Bebeto Adams MD [address] [facility] [address] [place] [address] Social History Tobacco Use Types Packs/Day Years [...] to 6 hours as needed 12/09/2013 05/13/2018 desvenlafaxine (PRISTIQ) 100 MG 24 hr tablet [...] HOSPITAL CARDIOLOGY [address] [place] [address] Pj Ace MD [address] [facility] [address] [facility] [address] [place], [place] [id number] documented as of this encounter Visit Diagnoses Not on filedocumented in this encounter
--- OUTSIDE RECORDS SUMMARY | 2024-02-20 09:18 | XMS_ITS | Encounter Summary ---
Author Organization [facility] yste Address [address] [place] [address] Care Team Providers Care Chisel Mortiser Operator Name Role Phone Deepak Cortez MD Primary Care Provider Unav ailable Encounter Details Date Type Department Care Team (Late st Contact Info) Description 04/29/[address] [facility] HISTORICAL CONV [address] [place] [address] Provider, MD Aiyana [address] [place], [place] [id number] Social History Tobacco Use Types Packs/Day Years Used Date Smoking Tobacco: Never Assessed Comments Unknown Sex and Gender Information Value Date Recorded Sex Assigned at Not on file Legal Sex Female 10:25 AM EDT Gender Identity Not on file Sexual Orientation Not on file documented as of this encounter Last Filed Vital Signs Vital Sign Reading Time Taken Comments Blood Pressure 141/75 04/29/2013 3:15 PM EST Pulse 97 04/29/2013 3:15 PM EST Temperature 36.4 ??C (97.6 ??F) 04/29/2013 3:15 PM ES T Respiratory Rate 18 04/29/2013 3:15 PM EST Oxygen Saturation 100% 04/29/2013 3:15 PM EST Inhaled Oxygen Concentration - - Weight 88 kg (194 lb 0.1 oz) 04/29/2013 3:15 PM EST Height 157.5 cm (5' 2 ) 04/29/2013 3:15 PM EST Body Mass Index 35.48 04/29/2013 3:15 PM EST documented in this encounter Progress Notes * Bebeto Adams - 04/29/2013 12:45 PM EST Chief Complaint I have pain in my lower back, left hip, buttocks,and my leg all the way to my foot. I would like to proceed with a spinal cord stimulator trial. History of Present Illness HPI: Mrs. Gonzalez presents today for discussion of a potential spinal cord stimulator trial. The patient complains of constant lower back pain radiating to the left hip, left buttock, and left lower extremity to the foot. The pain is described as an ache. The pain ranges from 3-10/10 depending on activity level. She states during the workday her pain increases to 10/10, making it difficult for herto walk 100 feet to the bathroom. Patient describes numbness in the lateral left kennedy and numbness in the bilateral lower extremities. She denies new bladder bowel problems. She followed-up with Dr. Diogenes Neville for therapy and psychological clearance for a potential spinal cord stimulator trial has been obtained approximately one week ago. She plans to start physical therapy program once pain is under control. Patient did not start aqua therapy but performs stretches at home daily. She continues on trazodone 50-100 mg each bedtime for insomnia, and initiated tizanidine 2 mg half a tablet toa tablet 3 times a day when necessary muscle spasms. She denies side effects with her medications. She did not follow-up at [facility]. The patient denies any new health related issues or diagnostic testing. BANNER #[id number] appropriate. Review of Systems Complete-Female: Constitutional: fatigue. Head and Face: negative. Eyes: negative. ENT: negative. Cardiovascular: negative and no palpitations. Respiratory: shortness of breath and sleeping upright or with extra pillows The patient presents with complaints of dry cough (chronic). Gastrointestinal: abdominal bloating and constipation. Genitourinary: negative. Musculoskeletal: diffuse joint pain, generalized muscle aches, back pain, joint swelling, joint stiffness, back muscle spasm, pain in other joints and limping. Integumentary and Breasts: negative. Neurological: negative. Psychiatric: insomnia, irritability, anxiety and depression. Endocrine: hot flashes and night sweats. Hematologic and Lymphatic: negative. Active Problems 1. Acute Reaction To Stress With Disturbance Of Emotions 308.0 2. Alopecia 704.00 3. Backache 724.5 4. Benign Essential Hypertension 401.1 5. Diabetes Mellitus 250.00 6. Dizziness 780.4 7. Herniated Lumbar Disc 722.10 8. Hyperlipidemia 272.4 9. Hypertension 401.9 10. Insomnia 780.52 11. Lumbar Radiculopathy 724.4 12. Lumbar Radiculopathy 724.4 13. Migraine Headache 346.90 14. Morbid Obesity 278.01 15. Myofascial Pain Syndrome 729.1 16. Taking Medication For A Long Time V58.69 17. Urinary Tract Infection 599.0 18. Vitamin D Deficiency 268.9 Past Medical History ?? History of Anxiety (Symptom) 300.00 ?? History of Changed Sexual Interest (Libido): Decreased 799.81 ?? History of Colonoscopy (Fiberoptic) ?? History of Diabetes Mellitus 250.00 ?? History of Hypertension 401.9 ?? History of Infection Of A Kidney 590.9 ?? History of Mammogram Screening V76.12 ?? History of Mastoiditis 383.9 ?? History of Migraine Headache 346.90 ?? History of Palpitations 785.1 ?? History of Reported Pap Smear ?? History of Urinary Calculus 592.9 ?? History of Urinary Incontinence 788.30 Surgical History ?? History of Bladder Surgery ?? History of Elbow Surgery Left ?? History of Lower Back Surgery ?? History of Total Abdominal Hysterectomy V45.77 Family History ?? Family history of Type 2 Diabetes Mellitus Social History ?? Caffeine Use ?? Marital History - Currently ?? History of Marital History - V61.03 ?? Never A Smoker ?? Never Drank Alcohol Current Meds 1. Emilia Contour Test In Vitro Strip; USE DIRECTED; Therapy: 50Wyn2035 to (Last Rx:[id number]) Requested for: 13Yaz2853 2. Edarbyclor 40-12.5 MG Oral Tablet; TAKE TWO TABLETS BY MOUTH EVERY DAY; Therapy: 02Feb2012 to (Evaluate:70Ktt9065) Requested for: 24Jan2013; Last Rx:[id number] 3. Lancets Miscellaneous; USE DIRECTED; Therapy: 72Koi0396 to (Last Rx:[id number]) Requested for: 99Pre1988 4. Omeprazole 20 MG Oral Capsule Delayed Release; TAKE ONE CAPSULE BY MOUTH EVERY DAY; Therapy: 15Jan2012 to (Evaluate:17Lxz5329) Requested for: 49Yzk1690; Last Rx:[id number] 5. Pravastatin Sodium 20 MG Oral Tablet; TAKE 1 TABLET DAILY AT BEDTIME; Therapy: 23Jan2013 to (Evaluate:86Hcg7766) Requested for: 24Jan2013; Last Rx:[id number] 6. Pristiq 50 MG Oral Tablet Extended Release 24 Hour; Take once daily; Therapy: 28Feb2013 to (Last Rx:[id number]) Requested for: 13Bah2515 7. Spironolactone 50 MG Oral Tablet; TAKE 1 TABLET DAILY; Therapy: 10Jan2013 to (Evaluate:08Uzb3180) Requested for: 10Jan2013; Last Rx:[id number] 8. TiZANidine HCl 2 MG Oral Tablet; 1/2 to 1 pill po tid prn spasms; Therapy: 29Qyg9623 to (Last Rx:[id number]) Requested for: 70Kix6987 9. TraZODone HCl 50 MG Oral Tablet; TAKE 1-2 TABLETS AT BEDTIME NEEDED; Therapy: 16Sep2012 to (Evaluate:68Vlh5492) Requested for: 13Jan2013; Last Rx:[id number] 10. Xanax 0.25 MG Oral Tablet; TAKE TABLET PRN; Therapy: 15Jan2012 to Allergies 1. Actos TABS 2. Flexeril TABS 3. MetFORMIN HCl TABS 4. Norvasc TABS Vitals Signs [Data Includes: Current Encounter] Temperature: 97.6 F, Heart Rate: 97, Respiration: 18, Systolic: 141, Diastolic: 75, BMI Calculated:35.7, BSA Calculated: 1.88, Height: 5 ft 2 in, Weight: 194 lb , O2 Saturation: 100 Physical Exam General Complete Exam: Constitutional General [...] pain. Lumbar facet joint loading maneuvers are positive. Danny and Gaenslen's tests are negative at [...] Lumbar arachnoiditis. 2. Lumbar postlaminectomy syndrome. 3. Left sacroiliac joint dysfunction, resolved. 4. Left piriformis muscle syndrome, resolved. 5. Lumbar facet arthropathy 6. Morbid obesity. 7. Pre-diabetes. 8. Insomnia. Plan Patient continues struggling with her chronic pain. Patient has failed to obtain pain relief conservative measures including minimally invasive interventional pain management procedures. Patient has declined any possibility of additional surgical intervention. Therefore, I have proposed the following plan: 1. Patient will be scheduled for a spinal cord stimulator trial. 2. Patient will undergo CBC, PT, PTT before her trial. 3. Follow-up with Dr. Diogenes Neville for cognitive behavioral therapy and biofeedback. 4. Patient will start a comprehensive physical therapy program once her pain is under control. 5. Start independent exercise program, particularly for aqua therapy. 6. Continue trazodone 50-100 mg each bedtime for insomnia. 7. Continue tizanidine 2 mg half a tablet to a tablet 3 times a day when necessary muscle spasms. 8. Follow-up at [facility]. 9. The patient has been instructed to contact my office with any questions or difficulties. The patient understands the plan and agrees to proceed accordingly. cc: Damien Berg M.D. Leidy Robertson M.D. Signatures Electronically signed by : Bebeto Adams M.D.; Apr 29 2013 4:08PM (Author) documented in this encounter Miscellaneous Notes * Letter - Bebeto Adams - 04/29/2013 12:45 PM EST Per your request, I saw GERTRUDIS JACOBSON today in consultation for the assessment listed below. Chief Complaint I have pain in my lower back, left hip, buttocks,and my leg all the way to my foot. I would like to proceed with a spinal cord stimulator trial. History of Present Illness Mrs. Gonzalez presents today for discussion of a potential spinal cord stimulator trial. The patient complains of constant lower back pain radiating to the left hip, left buttock, and left lower extremity to the foot. The pain is described as an ache. The pain ranges from 3-10/10 depending on activity level. She states during the workday her pain increases to 10/10, making it difficult for her to walk 100 feet to the bathroom. Patient describes numbness in the lateral left kennedy and numbness in the bilateral lower extremities. She denies new bladder bowel problems. She followed-up with Dr. Diogenes Neville for therapy and psychological clearance for a potential spinal cord stimulator trial has been obtained approximately one week ago. She plans to start physical therapy program once pain is under control. Patient did not start aqua therapy but performs stretches at home daily. She continues on trazodone 50-100 mg each bedtime for insomnia, and initiated tizanidine 2 mg half a tablet to a tablet 3 times a day when necessary muscle spasms. She denies side effects with her medications. She did not follow-up at [facility]. The patient denies any new health related issues or diagnostic testing. BANNER #[id number] appropriate. Review of Systems Constitutional: fatigue. Head and Face: negative. Eyes: negative. ENT: negative. Cardiovascular: negative and no palpitations. Respiratory: shortness of breath and sleeping upright or with extra pillows The patient presents with complaints of dry cough (chronic). Gastrointestinal: abdominal bloating and constipation. Genitourinary: negative. Musculoskeletal: diffuse joint pain, generalized muscle aches, back pain, joint swelling, joint stiffness, back muscle spasm, pain in other joints and limping. Integumentary and Breasts: negative. Neurological: negative. Psychiatric: insomnia, irritability, anxiety and depression. Endocrine: hot flashes and night sweats. Hematologic and Lymphatic: negative. Active Problems 1. Acute Reaction To Stress With Disturbance Of Emotions 308.0 2. Alopecia 704.00 3. Backache 724.5 4. Benign Essential Hypertension 401.1 5. Diabetes Mellitus 250.00 6. Dizziness 780.4 7. Herniated Lumbar Disc 722.10 8. Hyperlipidemia 272.4 9. Hypertension 401.9 10. Insomnia 780.52 11. Lumbar Radiculopathy 724.4 12. Lumbar Radiculopathy 724.4 13. Migraine Headache 346.90 14. Morbid Obesity 278.01 15. Myofascial Pain Syndrome 729.1 16. Taking Medication For A Long Time V58.69 17. Urinary Tract Infection 599.0 18. Vitamin D Deficiency 268.9 Past Medical History ?? History of Anxiety (Symptom) 300.00 ?? History of Changed Sexual Interest (Libido): Decreased 799.81 ?? History of Colonoscopy (Fiberoptic) ?? History of Diabetes Mellitus 250.00 ?? History of Hypertension 401.9 ?? History of Infection Of A Kidney 590.9 ?? History of Mammogram Screening V76.12 ?? History of Mastoiditis 383.9 ?? History of Migraine Headache 346.90 ?? History of Palpitations 785.1 ?? History of Reported Pap Smear ?? History of Urinary Calculus 592.9 ?? History of Urinary Incontinence 788.30 Surgical History ?? History of Bladder Surgery ?? History of Elbow Surgery Left ?? History of Lower Back Surgery ?? History of Total Abdominal Hysterectomy V45.77 Family History ?? Family history of Type 2 Diabetes Mellitus Social History ?? Caffeine Use ?? Marital History - Currently ?? History of Marital History - V61.03 ?? Never A Smoker ?? Never Drank Alcohol Current Meds 1. Emilia Contour Test In Vitro Strip; USE DIRECTED; Therapy: 77Hkj2387 to (Last Rx:[id number]) Requested for: 68Dno2272 2. Edarbyclor 40-12.5 MG Oral Tablet; TAKE TWO TABLETS BY MOUTH EVERY DAY; Therapy: 02Feb2012 to (Evaluate:77Vme0916) Requested for: 24Jan2013; Last Rx:[id number] 3. Lancets Miscellaneous; USE DIRECTED; Therapy: 34Nva1333 to (Last Rx:[id number]) Requested for: 84Hsv2676 4. Omeprazole 20 MG Oral Capsule Delayed Release; TAKE ONE CAPSULE BY MOUTH EVERY DAY; Therapy: 15Jan2012 to (Evaluate:13Feb2013) Requested for: 86Sqt3487; Last Rx:[id number] 5. Pravastatin Sodium 20 MG Oral Tablet; TAKE 1 TABLET DAILY AT BEDTIME; Therapy: 23Jan2013 to (Evaluate:27Jvx0501) Requested for: 24Jan2013; Last Rx:[id number] 6. Pristiq 50 MG Oral Tablet Extended Release 24 Hour; Take once daily; Therapy: 28Feb2013 to (Last Rx:[id number]) Requested for: 70Jzi8915 7. Spironolactone 50 MG Oral Tablet; TAKE 1 TABLET DAILY; Therapy: 10Jan2013 to (Evaluate:09Jul2013) Requested for: 10Jan2013; Last Rx:[id number] 8. TiZANidine HCl 2 MG Oral Tablet; 1/2 to 1 pill po tid prn spasms; Therapy: 49Git7334 to (Last Rx:[id number]) Requested for: 99Rdy5558 9. TraZODone HCl 50 MG Oral Tablet; TAKE 1-2 TABLETS AT BEDTIME NEEDED; Therapy: 16Sep2012 to (Evaluate:37Tmr4301) Requested for: 13Jan2013; Last Rx:[id number] 10. Xanax 0.25 MG Oral Tablet; TAKE TABLET PRN; Therapy: 15Jan2012 to Allergies 1. Actos TABS 2. Flexeril TABS 3. MetFORMIN HCl TABS 4. Norvasc TABS Vitals Signs [Data Includes: Current Encounter] Temperature: 97.6 F, Heart Rate: 97, Respiration: 18, Systolic: 141, Diastolic: 75, BMI Calculated:35.7, BSA Calculated: 1.88, Height: 5 ft 2 in, Weight: 194 lb , O2 Saturation: 100 Physical Exam Constitutional General appearance: No acute [...] pain. Lumbar facet joint loading maneuvers are positive. Danny and Gaenslen's tests are negative at [...] Lumbar arachnoiditis. 2. Lumbar postlaminectomy syndrome. 3. Left sacroiliac joint dysfunction, resolved. 4. Left piriformis muscle syndrome, resolved. 5. Lumbar facet arthropathy 6. Morbid obesity. 7. Pre-diabetes. 8. Insomnia. Plan Patient continues struggling with her chronic pain. Patient has failed to obtain pain relief conservative measures including minimally invasive interventional pain management procedures. Patient has declined any possibility of additional surgical intervention. Therefore, I have proposed the following plan: 1. Patient will be scheduled for a spinal cord stimulator trial. 2. Patient will undergo CBC, PT, PTT before her trial. 3. Follow-up with Dr. Diogenes Neville for cognitive behavioral therapy and biofeedback. 4. Patient will start a comprehensive physical therapy program once her pain is under control. 5. Start independent exercise program, particularly for aqua therapy. 6. Continue trazodone 50-100 mg each bedtime for insomnia. 7. Continue tizanidine 2 mg half a tablet to a tablet 3 times a day when necessary muscle spasms. 8. Follow-up at [facility]. 9. The patient has been instructed to contact my office with any questions or difficulties. The patient understands the plan and agrees to proceed accordingly. cc: Damien Berg M.D. Leidy Robertson M.D. Thank you very much for allowing me to participate in the care of this patient. If you have any questions, please do not hesitate to contact me. Signatures Electronically signed by : Bebeto Adams M.D.; Apr 29 2013 4:08PM (Author) documented in this encounter Plan of Treatment Upcoming Encounters Date Type Department Care Team (Late st Contact Info) Description 03/13/2024 2:45 PM EST Office Visit [facility] CARDIOLOGY [address] [facility] [place] [address] [place] [address] Pj Ace MD [address] [facility] [address] [facility] [address] [place] [address] documented as of this encounter Visit Diagnoses Not on filedocumented in this encounter Care Teams Chisel Mortiser Operator Relationship Specialty Start Date End Date Deepak Cortez MD PCP - General 12/31/14 12/12/16 documented as of this encounter
--- OUTSIDE RECORDS SUMMARY | 2024-02-20 09:18 | XMS_ITS | Encounter Summary ---
[facility] Address [address] [place] [address] Care Team Providers Care Cement [employer] Name Role Phone Deepak Cortez MD Primary Care Provider Unav ailable Encounter Details Date Type Department Care Team (Late st Contact Info) Description 08/06/2013 Telephone Converted [facility] HISTORICAL CONV [address] [place] [address] Provider, MD Aiyana [address] [place] [address] Social History Tobacco Use Types Packs/Day Years Used Date Smoking Tobacco: Never Assessed Comments Unknown Sex and Gender Information Value Date Recorded Sex Assigned at Not on file Legal Sex Female 10:25 AM EDT Gender Identity Not on file Sexual Orientation Not on file documented as of this encounter Miscellaneous Notes * Telephone Encounter - Interface, See Report - 08/06/2013 2:47 PM EDT Message Recorded as Task Date: 08/05/2013 09:06 AM, Created By: Anitha Dejesus Task Name: Follow Up Assigned To: Francis Jaimes Regarding Patient: ADDY GERTRUDIS Ofelia, Status: In Progress Comment: Anitha Dejesus - 05 Aug 2013 9:06 AM TASK CREATED Caller: Self; General Medical Question; ; Pt called to report bp readings she said no of them have been under 155/95 and said she has been taking her meds and said the new medication is not working call her at [phone] Francis Jaimes - 05 Aug 2013 9:21 AM TASK EDITED please advise. thank you. Leidy Robertson - 05 Aug 2013 12:58 PM TASK REPLIED TO: Previously Assigned To MarceloLeidy have her increase to 4 pills of doxazocin at bedtime and let me know if bp improves, we can continue to increase TheodoreFrancis - 05 Aug 2013 2:03 PM TASK EDITED lm on vm for patient to call back. Francis Jaimes - 05 Aug 2013 2:03 PM TASK IN PROGRESS Anitha Dejesus - 05 Aug 2013 2:06 PM TASK EDITED Pt called back and wants you to return her call call her back at [phone] Francis Jaimes - 06 Aug 2013 2:47 PM TASK EDITED patient notified, she will call tomorrow with readings. Signatures Electronically signed by : Francis Jaimes, ; Aug 06 2013 2:48PM EST (Author) documented in this encounter Plan of Treatment Upcoming Encounters Date Type Department Care Team (Late st Contact Info) Description 03/13/2024 2:45 PM EST Office Visit [facility] CARDIOLOGY [address] [place] [place] [address] Pj Ace MD [address] [facility] [address] [facility] [address] [place] [address] documented as of this encounter Visit Diagnoses Not on filedocumented in this encounter Care Teams [employer] [address] Relationship Specialty Start Date End Date Deepak Cortez MD PCP - General 12/31/14 12/12/16 documented as of this encounter
--- OUTSIDE RECORDS SUMMARY | 2024-02-20 09:18 | XMS_ITS | Encounter Summary ---
[facility] Address [address] [place] [id number] Care Team Providers Care Tire Assembler Name Role Phone Unavailable Primary Care Provider Unavailabl e Encounter Details Date Type Department Care Team (Late st Contact Info) Description 09/18/2013 10:10 AM EDT - 09/18/2013 11:59 PM EDT Hospital Encounter [facility] [address] [place] [id number] Bebeto Adams MD [address] [facility] [address] [place] [address] Social History Tobacco Use Types Packs/Day Years [...] [facility] [address] [place] [address] [place] [address] Pj Ace MD [address] [facility] [address] [place] [address] documented as of this encounter Procedures Procedure Name Priority Date/Time Associated Diagnosis Comments APTT Routine 09/18/2013 10:22 AM EDT PROTIME-INR Routine 09/18/2013 10:22 AM EDT CBC AND DIFFERENTIAL Routine 09/18/2013 10:22 AM EDT documented in this encounter Results * APTT (09/18/2013 10:22 AM EDT) PTT 27 24 - 31 Seconds [facility] Comment: US by IF @ 09/18/2013 10:47 PTT = The equivalent PTT values for the therapeutic range of heparin levels at 0.3 to 0.5 U/ml are 45 to 60 seconds. PTT = The equivalent PTT values for the therapeutic range of heparin levels at 0.3 to 0.5 U/ml are 45 to 60 seconds. Blood specimen (specimen) 09/18/2013 10:22 AM EDT Narrative [facility] - 09/18/2013 10:47 AM EDT Specimen Type: Blood us Bebeto Adams MD LAB BLOOD ORDERABLES Final Re sult [facility] [address] [place] [address], [place] [phone] * Protime-INR (09/18/2013 10:22 AM EDT) Protime 10.7 9.6 - 11.5 Seconds [facility] INR 1.00 [facility] Comment: US by IF @ 09/18/2013 10:47 Therapeutic Ranges for INR: 2.0-3.0 (PT 20-30) ?2.5-3.5 (PT 25-34) Blood specimen (specimen) 09/18/2013 10:22 AM EDT Narrative [facility] - 09/18/2013 10:47 AM EDT Specimen Type: Blood us Bebeto Adams MD LAB BLOOD ORDERABLES Final Re sult [facility] [address] [place] [address], * CBC and Differential (09/18/2013 10:22 AM EDT) [facility] 6.21 3.50 [facility] RBC 4.86 3.89 - 5.14 [facility] Hemoglobin 14.1 11.5 - 15.5 g/dL [facility] Hematocrit 42.7 34.5 - 44.0 % [facility] MCV 87.9 80.0 - 99.0 fL [facility] MCH 29.0 27.0 - 31.0 pg [facility] MCHC 33.0 32.0 - 36.0 g/dL [facility] RDW-CV 13.1 11.3 - 14.5 % [facility] Platelets 235 150 - 450 [facility] Neutrophils Absolute 4.15 1.50 - 8.30 [facility] Lymphocytes Absolute 1.52 0.60 - 4.80 [facility] Monocytes Absolute 0.34 0.00 - 1.00 [facility] Eosinophils Absolute 0.15 0.10 - 0.30 [facility] Basophils Absolute 0.04 0.00 - 0.20 K/mcL [facility] Neutrophil Rel % 66.8 41.0 - 71.0 % [facility] Lymphocyte Rel % 24.5 24.0 - 44.0 % [facility] Monocyte Rel % 5.5 0.0 - 12.0 % [facility] Eosinophil Rel % 2.4 0.0 - 3.0 % [facility] Basophil Rel % 0.6 0.0 - 1.0 % [facility] Immature Granulocyte Rel % 0.2 0.0 - 0.6 % [facility] Blood specimen (specimen) 09/18/2013 10:22 AM EDT Narrative [facility] - 09/18/2013 10:29 AM EDT Specimen Type: Blood us Bebeto Adams MD LAB BLOOD ORDERABLES Final Re sult Performing Organization Address City/State/[facility] Co de Phone Number [facility] [address] [place] [address], documented in this encounter Visit Diagnoses Not on filedocumented in this encounter
--- OUTSIDE RECORDS SUMMARY | 2024-02-20 09:18 | XMS_ITS | Encounter Summary ---
[facility] Address [address] [place] [id number] Care Team Providers Care Shell Sorter Name Role Phone Unavailable Primary Care Provider Unavailabl e Encounter Details Date Type Department Care Team (Late st Contact Info) Description 01/06/2014 9:14 AM EDT - 01/06/2014 11:59 PM EDT Hospital Encounter [facility] [address] [facility] [place] [place] [phone] Bebeto Adams MD [address] [facility] [address] [place] [address] Social History Tobacco Use Types Packs/Day Years [...] [facility] [address] [place] [address] [place] [address] Pj Ace MD [address] [facility] [address] [place] [address] documented as of this encounter Procedures Procedure Name Priority Date/Time Associated Diagnosis Comments XR PELVIS 1 OR 2 VW Routine 01/06/2014 9 :23 AM EDT documented in this encounter Results * X-RAY PELVIS 1 OR 2 VIEWS (01/06/2014 9:23 AM EDT) Anatomical Region Laterality Modality Body, Pelvis N/A Radiographic Sri ging 01/06/2014 9:23 AM EDT Narrative 01/06/2014 4:58 PM EDT TWO VIEWS OF THE PELVIS - 01/06/2014: INDICATION: Bilateral joint pain. FINDINGS: ??There is mild sclerosis about the right sacroiliac joint. The left sacroiliac joint is normal. ??The sacral ala are intact. The pubic symphysis is normal. ??The femoral heads are well seated in their respective acetabular fossa. The right acetabular joint is not well evaluated secondary to overlying spinal stimulator. The bearing surface of the left femoral head is smooth. IMPRESSION- ?? 1. ??Minimal sclerosis about the right sacroiliac joint. 2. ??Normal femoral heads and acetabular joints. D: ??01/06/2014 E: ??01/06/2014 ? Reading Radiologist- MIAH HODGSON ? Releasing Radiologist- MIAH HODGSON ? Released Date Time- 01/08/14744 ? Phillip Diallo Procedure Note Miah Rios MD - 12/22/2014 TWO VIEWS OF THE PELVIS - 01/06/2014: INDICATION: Bilateral joint pain. FINDINGS: There is mild sclerosis about the right sacroiliac joint. The left sacroiliac joint is normal. The sacral ala are intact. The pubic symphysis is normal. The femoral heads are well seated in their respective acetabular fossa. The right acetabular joint is not well evaluated secondary to overlying spinal stimulator. The bearing surface of the left femoral head is smooth. IMPRESSION- 1. Minimal sclerosis about the right sacroiliac joint. 2. Normal femoral heads and acetabular joints. E: 01/06/2014 Reading Radiologist- MIAH HODGSON Releasing Radiologist- MIAH HODGSON Released Date Time- 01/08/14 0745 Phillip Diallo Bebeto Adams MD [facility] ORDERA BLES Final Result documented in this encounter Visit Diagnoses Not on filedocumented in this encounter
--- OUTSIDE RECORDS SUMMARY | 2024-02-20 09:19 | XMS_ITS | Encounter Summary ---
Author Organization [facility] Address [address] [place] [address] Care Team Providers Care Domestic Housekeeper Name Role Phone Provider, No Known Primary Care Provider Unavail able Encounter Details Date Type Department Care Team (Late st Contact Info) Description 10/10/2012 Historical Mammograp hy Encounter [facility] [address] [place] [address] Interface, See Report Social History Tobacco Use Types Packs/Day Years [...] [facility] [address] [place] [address] jP Ace MD [address] [facility] [address] [place] [address] documented as of this encounter Procedures Procedure Name Priority Date/Time Associated Diagnosis Comments MAMMO HISTORICAL RESULT Routine 10/10/2012 12:41 PM EDT documented in this encounter Results * MAMMO HISTORICAL RESULT (10/10/2012 12:41 PM EDT) Anatomical Region Laterality Modality Breast Mammography 10/10/2012 12:4 1 PM EDT Narrative 10/11/2012 8:50 AM EDT ?[facility] ? [address] ??[place] [address] ? NAME: KAVONGERTRUDIS ? : ??57 ??MR#: [id number] ? LOC: ?? DIS ? AGE: 56Y ?? Pt type: CO ?Exam Date: 10/10/12 1242 ? SEX: F ?? AN#:[id number] ?Ck-in#: [id number] ? HENRY,EMELY L ? [address] ? [place] ? [place] ?[place] ?[address] ? Chk-in # ?? Order ?Exam ?[id number] ?? 0001 ? [id number] ??BC MAMM DIAG UNILAT DIG PNL*R ? Ord Diag: ABN MMG ? RIGHT DIGITAL DIAGNOSTIC MAMMOGRAM ?? CLINICAL INDICATION: ??56-year-old patient presents for six month mammographic followup of the right breast. She has no reported breast complaints. She has no family history of breast cancer. ?? TECHNIQUE: Routine digital CC and MLO views of the right breast were performed and supplemented with an exaggerated lateral right CC view. ?? COMPARISON: 03/22/2012, 12/21/2008, 11/27/2008 and 12/14/2005. ?? FINDINGS: ??The breast tissue is heterogeneously dense. ??This may lower the sensitivity of mammography. ?? The fibroglandular pattern is stable. This includes the asymmetry being followed laterally in the right breast. This is felt to likely correlate to a cluster of cysts on prior breast ultrasound imaging. A smaller mass in the deeper upper-outer quadrant is stable and again is felt to reflect an intramammary lymph node. No spiculated mass, architectural distortion, or suspicious calcifications are seen. ?? IMPRESSION: ??Stable mammographic appearance of the right breast including the small asymmetry being followed laterally. Recommend an additional six month mammographic followup of the right breast. ??At that time, the patient will also be due for routine imaging of her left breast. ?? ACR BI-RADS CATEGORY: ??III, PROBABLY BENIGN ? FINAL ?CONTINUED ?Page ??1 ? RADIOLOGY REPORT ?[facility] ? [address] ??[place], [place] [address] ? NAME: GERTRUDIS JACOBSON ? : ??57 ??MR#: [id number] ? LOC: ?? DIS ? AGE: 56Y ?? Pt type: CO ?Exam Date: 10/10/12 1242 ? SEX: F ?? AN#:[id number] ?Ck-in#: [id number] ? EMELY FIGUEROA ? [address] ? [place] ? [place] ?[place] ?[address] ? Checkin-Exam Code Summary ? [id number] ?? RECOMMENDATION: ??Recommend a followup bilateral diagnostic mammogram in six months. ?? iCAD was utilized. ?? The standard false-negative rate of mammography is between 10 and 25%. Complex patterns or increased breast density will markedly elevate the false-negative rate of mammography. ? A letter, in lay terminology, with the results of this exam was given to the patient at the time of the visit. ?/READ BY/ CORINA VIEYRA ?/Released By/ CORINA VIEYRA ?Released By Date/Time: ??10/11/12 0841 ?Cannery Tender Engineer: ??MM ? FINAL ? Page ??2 ? RADIOLOGY REPORT us See Report Interface IMG MAMMOGRAPHY ORDERABLES Final Result documented in this encounter Visit Diagnoses Not on filedocumented in this encounter Care Teams Domestic Housekeeper Relationship Specialty Start Date End Date Provider, [place] [address] PCP - General 12/21/14 12/29/14 documented as of this encounter
--- OUTSIDE RECORDS SUMMARY | 2024-02-20 09:19 | XMS_ITS | Encounter Summary ---
Author Organization [facility] Address [address] [place] [id number] Care Team Providers Care Predatory Animal Trapper Name Role Phone AbadEv ruiz Primary Care Provider [phone] Encounter Details Date Type Department Care Team (Latest Contact Info) Description 11/08/2023 2:08 PM EDT - 11/08/2023 11:59 PM EDT [facility] [address] [place] [address] Polyarthralgia Discharge Disposition: Home or Self Care Social History Tobacco Use Types Packs/Day Years Used Date Smoking Tobacco: Never Passive Smoke Exposure: Never Smokeless Tobacco: Never Alcohol Use Standard Drinks/Week Comments Never 0 (1 standard drink = 0.6 oz pur e alcohol) PHQ-2 Answer Date Recorded Patient Health Questionnaire-2 Score 1 11/08/2023 Comments No Sex and Gender Information Value Date Recorded Sex Assigned at Not on file Legal Sex Female 7:38 PM EDT Gender Identity Not on file Sexual Orientation Not on file documented as of this encounter Medications at Time of Discharge albuterol 108 (90 Base) MCG/ACT inhaler Inhale 2 puffs 4 (four) times a day. 1 each 11 11/08/2023 amoxicillin-clav ulanate (Augmentin) 875-125 MG tablet 11/08/2023 baclofen (Lioresal) 10 MG tablet Take 1 tablet (10 mg) by mouth 3 times a day. bethanechol (Urecholine) 50 MG tablet Take 1 tablet 3 times a day by oral route with meals for 30 days. 11/27/2022 cefuroxime (Ceftin) 500 MG tablet TAKE 1 TABLET BY MOUTH EVERY 12 HOURS FOR 10 DAYS cetirizine (ZyrTEC ALLERGY) 10 MG tablet Take 1 tablet every day by oral route as needed for 30 days. chlorhexidine (Peridex) 0.12 % solution RINSE WITH 15ML FOR 30 SECONDS AND SPIT, USE TWICE DAILY cholecalciferol (Vitamin D-3) 5,000 Units tablet Take 1 tablet (5,000 Units) by mouth 1 (one) time each day. cyclobenzaprine (Flexeril) 10 MG tablet Take 1 tablet (10 mg) by mouth. desvenlafaxine (Pristiq) 50 MG 24 hr tablet 05/30/2023 docusate sodium (Colace) 100 MG capsule Take 1 capsule every day by oral route as directed for 30 days. furosemide (Lasix) 20 MG tablet Take 1 tablet (20 mg) by mouth if needed. insulin glargine (Lantus SoloStar) 100 UNIT/ML injection pen 01/16/2023 insulin lispro (HumaLOG KWIKPEN) 100 UNIT/ML injection pen Inject 16 units every day by subcutaneous route before meals for 30 days. levothyroxine (Synthroid, Levoxyl) 25 MCG tablet Take 1 tablet (25 mcg) by mouth 1 (one) time each day. 09/26/2023 losartan (Cozaar) 100 MG tablet 12/19/2022 meloxicam (Mobic) 7.5 MG tablet Take 1 tablet (7.5 mg) by mouth Daily. naloxegol oxalate (Movantik) 25 MG tablet NIFEdipine XL (Procardia XL) 90 MG 24 hr tablet Take 1 tablet (90 mg) by mouth 1 (one) time each day. 05/30/2023 omeprazole (PriLOSEC) [address] capsule Take 1 capsule every day by oral route as directed for 30 days. 01/02/2023 Plecanatide (Trulance) 3 MG tablet POTASSIUM PO Take 1 tablet by mouth 1 (one) time each day. rOPINIRole (Requip) 1 MG tablet Take 1 tablet (1 mg) by mouth Daily. 04/24/2023 topiramate 50 MG tablet Take 1 tablet twice a day by oral route as directed for 30 days. 11/27/2022 Tradjenta 5 MG tablet Take 1 tablet (5 mg) by mouth 1 (one) time each day. 10/27/2023 traMADol (Ultram) 50 MG tablet Take 1 tablet every 8 hours by oral route for 30 days. 11/27/2022 traZODone (Desyrel) 50 MG tablet Take 1 tablet (50 mg) by mouth Daily. documented as of this encounter Plan of Treatment Not on file documented as of this encounter Procedures Procedure Name Priority Date/Time Associated Diagnosis Comments XR HAND WRIST BILATERAL 2 VIEWS Routine 11/08/2023 2:20 PM EDT Polyarthralgia XR FOOT LEFT 3+ VIEWS Routine 11/08/2023 2:20 PM EDT Polyarthralgia XR HIP LEFT 2 OR 3 VIEWS Routine 11/08/2023 2:20 PM EDT Polyarthralgia documented in this encounter Results * XR Foot Left 3+ Views (11/08/2023 2:20 PM EDT) Anatomical Region Laterality Modality Lower Extremities, Foot Left Digital Radiography Impressions 11/08/2023 2:57 PM EDT Degenerative changes as above described. No evidence of bone erosions CRITICAL RESULT: ?? No. COMMUNICATION: Per this written report. Drafted by Andrea Denise MD on 11/08/2023 2:36 PM Final report signed by Andrea Denise MD on 11/08/2023 2:57 PM Narrative 11/08/2023 2:57 PM EDT CLINICAL INDICATION: inflam arthropathy TECHNIQUE: XR HIP LEFT 2 OR 3 VIEWS, XR HAND WRIST BILATERAL 2 VIEWS, XR FOOT LEFT 3+ VIEWS COMPARISON: None. FINDINGS: Diffuse osteopenia, which limits evaluation of nondisplaced fractures. 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 Jrbr-on-cbsojhxt osteoarthritis in the STT joint bilaterally. No acute displaced fracture or dislocations. No bone erosions. Left hip: Overlying soft tissue limits evaluation of the hip. Ztzp-pl-xntzahcp suggest the hip. No acute displaced fractures or dislocations. Left foot: Jsgs-zv-aljoeqzc osteoarthritis in the first MTP joint. No acute displaced fractures or dislocations. No evidence of bone erosions. There are superior and plantar calcaneal enthesophytes. Mild and diffuse soft tissue swelling. Procedure Note Andrea Oconnor MD - 11/08/2023 CLINICAL INDICATION: inflam arthropathy TECHNIQUE: XR HIP LEFT 2 OR 3 VIEWS, XR HAND WRIST BILATERAL 2 VIEWS, XR FOOT LEFT 3+VIEWS COMPARISON: None. FINDINGS: Diffuse osteopenia, which limits evaluation of nondisplaced fractures. Hand and wrist bilateral Moderate osteoarthritis in the first CMC and second through fifth DIPjoints bilaterally. Isnn-jw-audhnphr osteoarthritis in the STT joint bilaterally. No acute displaced fracture or dislocations. No bone erosions. Left hip: Overlying soft tissue limits evaluation of the hip. Ftuy-tc-nxpkeuhu suggest the hip. No acute displaced fractures or dislocations. Left foot: Kjfm-vw-xsfaeszl osteoarthritis in the first MTP joint. No acute displaced fractures or dislocations. No evidence of boneerosions. There are superior and plantar calcaneal enthesophytes. Mild and diffuse soft tissue swelling. IMPRESSION: Degenerative changes as above described. No evidence of bone erosions CRITICAL RESULT: No. COMMUNICATION: Per this written report. Drafted by Andrea Denise MD on 11/08/2023 2:36 PM Final report signed by Andrea Denise MD on 42:57 PM Denis Hudson APRN IM XR PROCEDURES Final Result * XR Hip Left 2 or 3 Views (11/08/2023 2:20 PM EDT) Anatomical Region Laterality Modality Lower Extremities, Hip Left Digital R adiography Impressions 11/08/2023 2:57 PM EDT Degenerative changes as above described. No evidence of bone erosions CRITICAL RESULT: ?? No. COMMUNICATION: Per this written report. Drafted by Andrea Denise MD on 11/08/2023 2:36 PM Final report signed by Andrea Denise MD on 11/08/2023 2:57 PM Narrative 11/08/2023 2:57 PM EDT CLINICAL INDICATION: inflam arthropathy TECHNIQUE: XR HIP LEFT 2 OR 3 VIEWS, XR HAND WRIST BILATERAL 2 VIEWS, XR FOOT LEFT 3+ VIEWS COMPARISON: None. FINDINGS: Diffuse osteopenia, which limits evaluation of nondisplaced fractures. 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 Ilqj-ym-qgsmwgjm osteoarthritis in the STT joint bilaterally. No acute displaced fracture or dislocations. No bone erosions. Left hip: Overlying soft tissue limits evaluation of the hip. Ktmu-fy-ecsdyeon suggest the hip. No acute displaced fractures or dislocations. Left foot: Tqtt-ns-gltssznv osteoarthritis in the first MTP joint. No acute displaced fractures or dislocations. No evidence of bone erosions. There are superior and plantar calcaneal enthesophytes. Mild and diffuse soft tissue swelling. Procedure Note Andrea Oconnor MD - 11/08/2023 CLINICAL INDICATION: inflam arthropathy TECHNIQUE: XR HIP LEFT 2 OR 3 VIEWS, XR HAND WRIST BILATERAL 2 VIEWS, XR FOOT LEFT 3+VIEWS COMPARISON: None. FINDINGS: Diffuse osteopenia, which limits evaluation of nondisplaced fractures. Hand and wrist bilateral Moderate osteoarthritis in the first CMC and second through fifth DIPjoints bilaterally. Udhq-fe-wmkbkqmf osteoarthritis in the STT joint bilaterally. No acute displaced fracture or dislocations. No bone erosions. Left hip: Overlying soft tissue limits evaluation of the hip. Ajqs-hg-qphecbfn suggest the hip. No acute displaced fractures or dislocations. Left foot: Yqaj-bd-affzajpl osteoarthritis in the first MTP joint. No acute displaced fractures or dislocations. No evidence of boneerosions. There are superior and plantar calcaneal enthesophytes. Mild and diffuse soft tissue swelling. IMPRESSION: Degenerative changes as above described. No evidence of bone erosions CRITICAL RESULT: No. COMMUNICATION: Per this written report. Drafted by Andrea Denise MD on 11/08/2023 2:36 PM Final report signed by Andrea Denise MD on 42:57 PM Denis Hudson APRN IMG XR PROCEDURES Final Result * XR Hand and Wrist Bilateral 2 Views (11/08/2023 2:20 PM EDT) Anatomical Region Laterality Modality Hand, Wrist Bilateral Digital Radiogra phy Impressions 11/08/2023 2:57 PM EDT Degenerative changes as above described. No evidence of bone erosions CRITICAL RESULT: ?? No. COMMUNICATION: Per this written report. Drafted by Andrea Denise MD on 11/08/2023 2:36 PM Final report signed by Andrea Denise MD on 11/08/2023 2:57 PM Narrative 11/08/2023 2:57 PM EDT CLINICAL INDICATION: inflam arthropathy TECHNIQUE: XR HIP LEFT 2 OR 3 VIEWS, XR HAND WRIST BILATERAL 2 VIEWS, XR FOOT LEFT 3+ VIEWS COMPARISON: None. FINDINGS: Diffuse osteopenia, which limits evaluation of nondisplaced fractures. 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 Qmsw-if-xrbelqwx osteoarthritis in the STT joint bilaterally. No acute displaced fracture or dislocations. No bone erosions. Left hip: Overlying soft tissue limits evaluation of the hip. Druo-gh-gjcprrlk suggest the hip. No acute displaced fractures or dislocations. Left foot: Wvix-pu-bmkuusgu osteoarthritis in the first MTP joint. No acute displaced fractures or dislocations. No evidence of bone erosions. There are superior and plantar calcaneal enthesophytes. Mild and diffuse soft tissue swelling. Procedure Note Andrea Oconnor MD - 11/08/2023 CLINICAL INDICATION: inflam arthropathy TECHNIQUE: XR HIP LEFT 2 OR 3 VIEWS, XR HAND WRIST BILATERAL 2 VIEWS, XR FOOT LEFT 3+VIEWS COMPARISON: None. FINDINGS: Diffuse osteopenia, which limits evaluation of nondisplaced fractures. Hand and wrist bilateral Moderate osteoarthritis in the first CMC and second through fifth DIPjoints bilaterally. Orhw-gq-ydhplwop osteoarthritis in the STT joint bilaterally. No acute displaced fracture or dislocations. No bone erosions. Left hip: Overlying soft tissue limits evaluation of the hip. Jcmb-yg-incvfqop suggest the hip. No acute displaced fractures or dislocations. Left foot: Gxrb-zc-jpmlmdzh osteoarthritis in the first MTP joint. No acute displaced fractures or dislocations. No evidence of boneerosions. There are superior and plantar calcaneal enthesophytes. Mild and diffuse soft tissue swelling. IMPRESSION: Degenerative changes as above described. No evidence of bone erosions CRITICAL RESULT: No. COMMUNICATION: Per this written report. Drafted by Andrea Denise MD on 11/08/2023 2:36 PM Final report signed by Andrea Denise MD on 42:57 PM Denis Hudson APRN IMG XR PROCEDURES Final Result documented in this encounter Visit Diagnoses Diagnosis Polyarthralgia Pain in joint, multiple sites documented in this encounter Additional Health Concerns Assessment Noted Time A fall risk assessment has been complete d for the patient 11/08/2023 12:47 PM EDT A Body Mass Index follow-up plan has been documented for the patient 11/08/2023 1:35 PM EDT documented as of this encounter Care Teams Predatory Animal Trapper Relationship Specialty Start Date End Date Ev Augustin [address] [place] [address] PCP - General 08/13/20 documented as of this encounter
--- OUTSIDE RECORDS SUMMARY | 2024-02-20 09:19 | XMS_ITS | Encounter Summary ---
[facility] Address [address] [place] [address] Care Team Providers Care Tumble Tailstock Turret Lathe Operator Name Role Phone Provider, No Known Primary Care Provider Unavail able Encounter Details Date Type Department Care Team (Late st Contact Info) Description 04/29/2012 Conversion Encounter [facility] HISTORICAL CONV [address] [place] [address] Interface, See Report Social History [...] Visit [facility] CARDIOLOGY [address] [facility] [place] [address] Pj Ace MD [address] [facility] [address] [place] [address] documented as of this encounter Procedures Procedure Name Priority Date/Time Associated Diagnosis Comments CONVERTED (HISTORICAL) SURGICAL PATHOLOGY Routine 04/29/2012 5:52 AM EST documented in this encounter Results * Converted Surgical Pathology (04/29/2012 5:52 AM EST) 04/29/2012 5:52 AM EST [facility] LABORATORY - 04/30/2012 4:25 PM EST [facility] [address] [place] [address] SURGICAL PATHOLOGY REPORT Patient Name: GERTRUDIS JACOBSON MR#: [id number] : 1955 Gender: F Ordering Physician: TRAE TOLENTINO Copy To: ?? Location: [facility] Collected: 04/29/2012 Received: 04/29/2012 Reported: 04/30/2012 Clinical Diagnosis and History The working history is herniation. Final Diagnosis Intervertebral disc: Fibrocartilage from intervertebral disc. JFJ/sk Amendments: Electronically Signed Out By Denis Lang M.D. Specimen(s) Received: Intervertebral disc Gross Description Received in formalin labeled disc is a 2.5 x 2.0 x 0.5 cm aggregate of mathew/pink fibrocartilaginous soft tissue fragments submitted in toto in one cassette. HBM/sk Microscopic Description Sections of the intervertebral disc material demonstrate fibrocartilage without inflammation or neoplasia. ??JFJ/sk Procedures/Addenda us See Report Interface PATHOLOGY/CYTOLOGY ORDERABL ES Final Result [facility] LABORATORY [address] [place] [address], documented in this encounter Visit Diagnoses Not on filedocumented in this encounter Care Teams Tumble Tailstock Turret Lathe Operator Relationship Specialty Start Date End Date Provider, [place] [address] PCP - General 12/21/14 12/29/14 documented as of this encounter
--- OUTSIDE RECORDS SUMMARY | 2024-02-20 09:19 | XMS_ITS | Encounter Summary ---
Author Organization [facility] Address [address] [place] [address] Care Team Providers Care Borough Coordinator Name Role Phone Deepak Cortez MD Primary Care Provider Unav ailable Encounter Details Date Type Department Care Team (Late st Contact Info) Description 11/21/2012 Documentation Converted [facility]IN [facility]GEMENT [address] [phone] Bebeto Adams MD [address] [facility] [address] [place] [id number] Social History Tobacco Use Types Packs/Day Years Used Date Smoking Tobacco: Never Assessed Comments Unknown Sex and Gender Information Value Date Recorded Sex Assigned at Not on file Legal Sex Female 10:25 AM EDT Gender Identity Not on file Sexual Orientation Not on file documented as of this encounter Last Filed Vital Signs Vital Sign Reading Time Taken Comments Blood Pressure 120/74 11/21/2012 9:00 AM EDT Pulse 96 11/21/2012 9:00 AM EDT Temperature 36.4 ??C (97.6 ??F) 11/21/2012 9:00 AM ED T Respiratory Rate 16 11/21/2012 9:00 AM EDT Oxygen Saturation 96% 11/21/2012 9:00 AM EDT Inhaled Oxygen Concentration - - Weight 89 kg (196 lb 4.1 oz) 11/21/2012 9:00 AM EDT Height 157.5 cm (5' 2 ) 11/21/2012 9:00 AM EDT Body Mass Index 35.9 11/21/2012 9:00 AM EDT documented in this encounter Progress Notes * Bebeto Adams - 11/21/2012 2:54 PM EDT Chief Complaint I have pain in my left hip and left buttocks. My left leg pain is better since my shot. My back pain is also better since the shot. History of Present Illness HPI: Mrs. Mazariegos is here for follow up of left L4-L5 and left L5-S1 transforaminal epidural, preformed on 10/23/2012. She reports 50-60% ongoing relief of the left lower extremity pain, the residual pain she experiences is from the knee to the ankle. The pain from the thigh to knee has resolved. She reports 100% relief of the right buttock pain and 60% ongoing relief of left buttock pain. She rates her pain 4/10, described as if feels like a pulling and pinching . The patient returned to work 3weeks ago. 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 At the end of the work day, the pain is increased to 10/10. Patient denies numbness or weakness in her lower extremities, or any new bladder lower problems. Her activity level as significantly improved, in fact, she is working her shiftsat work. The patient was seen for follow up at [facility] on 10/24 2012. She reports an 8 pound weight loss. They have instructed her to call as needed. She is going to physical therapy and aqua therapy, 2-3 times weekly. She discontinued Lyricia 75mg 3 weeks ago upon returning to work. She reports having irritability and memory problems. This has resolved after discontinuing Lyrica. She has failed a trial with gabapentin in the past. She continues on Trazadone 50-100 mg at bedtime. The patient denies any new health related issues. [facility] #[id number], appropriate. Review of Systems Focused-Female: Constitutional: negative. ENT: negative. Cardiovascular: negative. Respiratory: negative. Gastrointestinal: nausea, constipation and GERD. Genitourinary: incontinence. Musculoskeletal: arthralgias. Integumentary: negative. Neurological: headache, numbness, tingling and dizziness. Psychiatric: anxiety, depression and panic attacks. Eyes: negative. Active Problems 1. Alopecia 704.00 2. Backache 724.5 3. Benign Essential Hypertension 401.1 4. Diabetes Mellitus 250.00 5. Dizziness 780.4 6. Herniated Lumbar Disc 722.10 7. Hypertension 401.9 8. Insomnia 780.52 9. Lumbar Radiculopathy 724.4 10. Lumbar Radiculopathy 724.4 11. Migraine Headache 346.90 12. Morbid Obesity 278.01 13. Taking Medication For A Long Time V58.69 14. Urinary Tract Infection 599.0 15. Vitamin D Deficiency 268.9 Past Medical History [...] Test In Vitro Strip; USE DIRECTED; Therapy: [id number] to (Last Rx:[id number]) Requested for: [id number] 2. Edarbyclor 40-12.5 MG Oral Tablet; TAKE TWO TABLETS BY MOUTH EVERY DAY; Therapy: 02Feb2012 to (Evaluate:25Hko4881) Requested for: 23Elh1084; Last Rx:[id number] 3. Lancets Miscellaneous; USE DIRECTED; Therapy: 43You0732 to (Last Rx:[id number]) Requested for: [id number] 4. Lyrica 75 MG Oral Capsule; TAKE 1 CAPSULE 3 TIMES DAILY; Therapy: (Recorded:16Sep2012) to 5. Omeprazole 20 MG Oral Capsule Delayed Release; TAKE ONE CAPSULE BY MOUTH EVERY DAY; Therapy: 15Jan2012 to (Evaluate:13Feb2013) Requested for: 61Fie0209; Last Rx:[id number] 6. TraZODone HCl 50 MG Oral Tablet; TAKE 1-2 TABLETS AT BEDTIME NEEDED; Therapy: 16Sep2012 to (Evaluate:14Apr2013) Requested for: 16Sep2012; Last Rx:16Sep2012 7. Xanax 0.25 MG Oral Tablet; TAKE TABLET PRN; Therapy: 15Jan2012 to Allergies 1. Actos TABS 2. Flexeril TABS 3. MetFORMIN HCl TABS 4. Norvasc TABS Vitals Signs [Data Includes: Current Encounter] Temperature: 97.6 F, Heart Rate: 96, Respiration: 16, Systolic: 120, Diastolic: 74, BMI Calculated:36.12, BSA Calculated: 1.89, Height: 5 ft 2 in, Weight: 196 lb 4 oz, O2 Saturation: 96 Physical Exam General Complete [...] varicosities: Normal. Abdomen Abdomen: Non-tender, no masses. The abdomen was obese. Bowel sounds were normal. The abdomen was soft and nontender. No masses palpated. Musculoskeletal Gait and station: Normal. Digits and nails: Normal without clubbing or cyanosis. Active and passive range of motion of the lumbar spine: Forward flexion is full. Extension is limited to 5 degrees secondary to pain. Lumbar facet joint loading maneuvers are positive. Danny and Gaenslen's tests are positive on the left, negative on the right. The range of motion of the hip joints is full and without pain. Muscle tone is normal. Left piriformis maneuvers are positive. Muscle strength/tone: Normal. Skin Skin and subcutaneous [...] Intact. Mood and affect: Normal. Assessment 1. Left sacroiliac joint dysfunction. 2. Left piriformis muscle syndrome. 3. Lumbar radiculopathy. 4. Lumbar disc herniation. 5. Lumbar facet arthropathy 6. Morbid obesity. 7. Pre-diabetes. 8. Insomnia. Plan Patient continues to struggle with pain. She has expressed significant analgesic and functional benefit after her second left L4-5 and left L5-S1 transforaminal epidural steroid injections. At this point, she appears to be dealing with significant left sacroiliac joint dysfunction and left piriformis muscle syndrome. There appears to be two distinctive sources of her pain; one related to her lumbar spine issues, and the other one secondary to left-sided joint dysfunction/left piriformis muscle syndrome. Nevertheless, this, could also be referred pain.. Therefore, I do propose the following plan: 1. Patient will be scheduled for diagnostic left sacroiliac joint injection with local anesthetics,and left piriformis muscle injection with local anesthetics under fluoroscopic and ultrasound guidance. If patient experiences complete pain relief, then, will proceed with left sacroiliac joint injection and left piriformis muscle injection with local anesthetic and steroids. Otherwise, we will repeat left L4-L5 and left L5-S1 transforaminal epidural steroid injections. I have also briefly discussed with the patient the possibility of a spinal cord stimulator trial, if she fails to obtain significant pain relief with conservative measures and minimally invasive interventional pain management measures. 2. Referral to Dr. Diogenes Neville for full psychological evaluation including psychological screening for a potential spinal cord similar trial. In addition, I have recommended cognitive behavioral therapy and biofeedback. 2. Continue comprehensive physical therapy program. 3. Start independent exercise program, particularly for aqua therapy immediately. 4. Start trial with Topamax 25 mg each bedtime. Patient has received instructions on how to increase his medication according to tolerance and analgesic response. 5. Continue trazodone 50-100 mg each bedtime for insomnia. 6. Followup at [facility]. 7. The patient has been instructed to contact my office with any questions or difficulties. The patient understands the plan and agrees to proceed accordingly. cc: Damien Berg M.D. Leidy Robertson M.D. Signatures Electronically signed by : Bebeto Adams M.D.; Nov 21 2012 9:59AM (Author) documented in this encounter Miscellaneous Notes * Letter - Bebeto Adams - 11/21/2012 2:54 PM EDT Thank you very much for referring GERTRUDIS MAZARIEGOS to me. Attached is a copy of my office note for the completeness of your records. Chief Complaint I have pain in my left hip and left buttocks. My left leg pain is better since my shot. My back pain is also better since the shot. History of Present Illness Mrs. Mazariegos is here for follow up of left L4-L5 and left L5-S1 transforaminal epidural, preformed on10/23/2012. She reports 50-60% ongoing relief of the left lower extremity pain, the residual pain she experiences is from the knee to the ankle. The pain from the thigh to knee has resolved. She reports 100% relief of the right buttock pain and 60% ongoing relief of left buttock pain. She rates herpain 4/10, described as if feels like a pulling and pinching . The patient returned to work 3 weeks ago. 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 At the end of the work day, the pain is increased to 10/10. Patient denies numbness or weakness in her lower extremities, or any new bladder lower problems. Her activity level as significantly improved, in fact, she is working her shifts at work. The patient was seen for follow up at [facility] on 10/24 2012. She reports an 8 pound weight loss. They have instructed her to call as needed. She is going to physical therapy and aqua therapy, 2-3 times weekly. She discontinued Lyricia 75mg 3 weeks ago upon returning to work. She reports having irritability and memory problems. This has resolved after discontinuing Lyrica. She has failed a trial with gabapentin in the past. She continues on Trazadone 50-100 mgat bedtime. The patient denies any new health related issues. [facility] #[id number], appropriate. Review of Systems Constitutional: negative. ENT: negative. Cardiovascular: negative. Respiratory: negative. Gastrointestinal: nausea, constipation and GERD. Genitourinary: incontinence. Musculoskeletal: arthralgias. Integumentary: negative. Neurological: headache, numbness, tingling and dizziness. Psychiatric: anxiety, depression and panic attacks. Eyes: negative. Active Problems 1. Alopecia 704.00 2. Backache 724.5 3. Benign Essential Hypertension 401.1 4. Diabetes Mellitus 250.00 5. Dizziness 780.4 6. Herniated Lumbar Disc 722.10 7. Hypertension 401.9 8. Insomnia 780.52 9. Lumbar Radiculopathy 724.4 10. Lumbar Radiculopathy 724.4 11. Migraine Headache 346.90 12. Morbid Obesity 278.01 13. Taking Medication For A Long Time V58.69 14. Urinary Tract Infection 599.0 15. Vitamin D Deficiency 268.9 Past Medical History [...] Test In Vitro Strip; USE DIRECTED; Therapy: [id number] to (Last Rx:[id number]) Requested for: 66Xxp1402 2. Edarbyclor 40-12.5 MG Oral Tablet; TAKE TWO TABLETS BY MOUTH EVERY DAY; Therapy: 02Feb2012 to (Evaluate:[id number]) Requested for: 01Oct2012; Last Rx:[id number] 3. Lancets Miscellaneous; USE DIRECTED; Therapy: 29Oct2012 to (Last Rx:29Oct2012) Requested for: 29Oct2012 4. Lyrica 75 MG Oral Capsule; TAKE 1 CAPSULE 3 TIMES DAILY; Therapy: (Recorded:16Sep2012) to 5. Omeprazole 20 MG Oral Capsule Delayed Release; TAKE ONE CAPSULE BY MOUTH EVERY DAY; Therapy: 15Jan2012 to (Evaluate:13Feb2013) Requested for: 49Suy7558; Last Rx:[id number] 6. TraZODone HCl 50 MG Oral Tablet; TAKE 1-2 TABLETS AT BEDTIME NEEDED; Therapy: 16Sep2012 to (Evaluate:14Apr2013) Requested for: 16Sep2012; Last Rx:16Sep2012 7. Xanax 0.25 MG Oral Tablet; TAKE TABLET PRN; Therapy: 15Jan2012 to Allergies 1. Actos TABS 2. Flexeril TABS 3. MetFORMIN HCl TABS 4. Norvasc TABS Vitals Signs [Data Includes: Current Encounter] Temperature: 97.6 F, Heart Rate: 96, Respiration: 16, Systolic: 120, Diastolic: 74, BMI Calculated:36.12, BSA Calculated: 1.89, Height: 5 ft 2 in, Weight: 196 lb 4 oz, O2 Saturation: 96 Physical Exam Constitutional General [...] varicosities: Normal. Abdomen Abdomen: Non-tender, no masses. The abdomen was obese. Bowel sounds were normal. The abdomen was soft and nontender. No masses palpated. Musculoskeletal Gait and station: Normal. Digits and nails: Normal without clubbing or cyanosis. Active and passive range of motion of the lumbar spine: Forward flexion is full. Extension is limited to 5 degrees secondary to pain. Lumbar facet joint loading maneuvers are positive. Danny and Gaenslen's tests are positive on the left, negative on the right. The range of motion of the hip joints is full and without pain. Muscle tone is normal. Left piriformis maneuvers are positive. Muscle strength/tone: Normal. Skin Skin and subcutaneous [...] Intact. Mood and affect: Normal. Assessment 1. Left sacroiliac joint dysfunction. 2. Left piriformis muscle syndrome. 3. Lumbar radiculopathy. 4. Lumbar disc herniation. 5. Lumbar facet arthropathy 6. Morbid obesity. 7. Pre-diabetes. 8. Insomnia. Plan Patient continues to struggle with pain. She has expressed significant analgesic and functional benefit after her second left L4-5 and left L5-S1 transforaminal epidural steroid injections. At this point, she appears to be dealing with significant left sacroiliac joint dysfunction and left piriformis muscle syndrome. There appears to be two distinctive sources of her pain; one related to her lumbar spine issues, and the other one secondary to left-sided joint dysfunction/left piriformis muscle syndrome. Nevertheless, this, could also be referred pain.. Therefore, I do propose the following plan: 1. Patient will be scheduled for diagnostic left sacroiliac joint injection with local anesthetics,and left piriformis muscle injection with local anesthetics under fluoroscopic and ultrasound guidance. If patient experiences complete pain relief, then, will proceed with left sacroiliac joint injection and left piriformis muscle injection with local anesthetic and steroids. Otherwise, we will repeat left L4-L5 and left L5-S1 transforaminal epidural steroid injections. I have also briefly discussed with the patient the possibility of a spinal cord stimulator trial, if she fails to obtain significant pain relief with conservative measures and minimally invasive interventional pain management measures. 2. Referral to Dr. Diogenes Neville for full psychological evaluation including psychological screening for a potential spinal cord similar trial. In addition, I have recommended cognitive behavioral therapy and biofeedback. 2. Continue comprehensive physical therapy program. 3. Start independent exercise program, particularly for aqua therapy immediately. 4. Start trial with Topamax 25 mg each bedtime. Patient has received instructions on how to increase his medication according to tolerance and analgesic response. 5. Continue trazodone 50-100 mg each bedtime for insomnia. 6. Followup at [facility]. 7. The patient has been instructed [...] signed by : Bebeto Adams M.D.; Nov 21 2012 9:59AM (Author) documented in this encounter Plan of Treatment Upcoming Encounters Date Type Department Care Team (Late st Contact Info) Description 03/13/2024 2:45 PM EST Office Visit [facility] CARDIOLOGY [address] [place] [address] [place] [address] Pj Ace MD [address] [facility] [address] [place] [address] documented as of this encounter Visit Diagnoses Not on filedocumented in this encounter Care Teams Borough Coordinator Relationship Specialty Start Date End Date Deepak Cortez MD PCP - General 12/31/14 12/12/16 documented as of this encounter
--- OUTSIDE RECORDS SUMMARY | 2024-02-20 09:19 | XMS_ITS | Encounter Summary ---
[facility] Address [address] [place] [address] Care Team Providers Care Certified Orthotist/Pedorthist Name Role Phone Deepak Cortez MD Primary Care Provider Unav ailable Encounter Details Date Type Department Care Team (Late st Contact Info) Description 01/30/2013 Telephone Converted [facility] HISTORICAL CONV [address] [place] [address] Provider, MD Aiyana [address] [place] [id number] Social History Tobacco Use Types Packs/Day Years Used Date Smoking Tobacco: Never Assessed Comments Unknown Sex and Gender Information Value Date Recorded Sex Assigned at Not on file Legal Sex Female 10:25 AM EDT Gender Identity Not on file Sexual Orientation Not on file documented as of this encounter Miscellaneous Notes * Telephone Encounter - Interface, See Report - 01/30/2013 11:30 AM EDT Message Recorded as Task Date: 01/24/2013 02:18 PM, Created By: Katherine Meza Task Name: Med Renewal Request Assigned To: Francis Jaimes Regarding Patient: GERTRUDIS JACOBSON, Status: In Progress Comment: Katherine Meza - 24 Jan 2013 2:18 PM TASK CREATED Caller: Self; Renew Medication; ; Patient is requesting a prescription for Cymbalta called into [facility] but she is wanting to know if she could stop by the office and flower picker some samples for this medication until her mail order arrives. Please call patient back at [phone] Thanks Francis Jaimes - 24 Jan 2013 2:50 PM TASK EDITED please advise, not in med list. Leidy Robertson - 24 Jan 2013 4:45 PM TASK REPLIED TO: Previously Assigned To Leidy Robertson I gave her 30 mg at last office visit, is that the dose that is working for her and that she wants to stay on? ok to give samples, I think we just got some and ok to call in or send in x 5 Jose Alfredo Al - 28 Jan 2013 2:55 PM TASK EDITED Tried calling pt but was unable to contact her. Francis Jaimes - 29 Jan 2013 9:21 AM TASK IN PROGRESS Francis Jaimes - 29 Jan 2013 9:22 AM TASK EDITED lm on vm for patient to call me back. Francis Jaimes - 29 Jan 2013 10:49 AM TASK EDITED Patient wants to know if she needs to come to both appts one that is on 02/09 and one that is on 03/13. She said these appts are to discuss her medications, but she would like to cancel one of the appts if it is okay with you. please advise. Also, patient will be in on sunday to flower picker samples andcymbalta 30 mg was escribed to [facility] per order. thank you. Leidy Robertson - 29 Jan 2013 4:47 PM TASK REPLIED TO: Previously Assigned To Leidy Robertson can keep either one JaimesFrancis - 30 Jan 2013 11:30 AM TASK EDITED lm on vm for patient to call back and cancel one appt, that everything could be discussed during one appt. Signatures Electronically signed by : Francis Jaimes, ; Jan 30 2013 11:30AM (Author) documented in this encounter Plan of Treatment Upcoming Encounters Date Type Department Care Team (Late st Contact Info) Description 03/13/2024 2:45 PM EST Office Visit [facility] CARDIOLOGY [address] [place] [address] Pj Ace MD [address] [facility] [address] [place] [address] documented as of this encounter Visit Diagnoses Not on filedocumented in this encounter Care Teams Certified Orthotist/Pedorthist Relationship Specialty Start Date End Date Deepak Cortez MD PCP - General 12/31/14 12/12/16 documented as of this encounter
--- OUTSIDE RECORDS SUMMARY | 2024-02-20 09:19 | XMS_ITS | Encounter Summary ---
[facility] Address [address] [place] [address] Care Team Providers Care Youth Officer Name Role Phone Provider, No Known Primary Care Provider Unavail able Encounter Details Date Type Department Care Team (Late st Contact Info) Description 06/12/2008 Conversion Encounter [facility] HISTORICAL CONV [address] [place] [address] Interface, See Report Social History [...] Visit [facility] CARDIOLOGY [address] [place] [address] [place] [address] Pj Ace MD [address] [facility] [address] [place] [address] documented as of this encounter Procedures Procedure Name Priority Date/Time Associated Diagnosis Comments CONVERTED (HISTORICAL) SURGICAL PATHOLOGY Routine 06/12/2008 10:37 AM EDT documented in this encounter Results * Converted Surgical Pathology (06/12/2008 10:37 AM EDT) 06/12/2008 10:3 7 AM EDT Narrative [facility] - 06/15/2008 12:00 PM EDT [facility] SURGICAL PATHOLOGY REPORT Patient Name: GERTRUDIS JACOBSON MR#: [id number] : 1955 Gender: F Ordering Physician: LILLIANA JACKSON Copy To: PIETER QUEVEDO:9B [facility] Endoscopy Location: LAB Collected: 06/12/2008 Received: 06/12/2008 Reported: 06/15/2008 Clinical Diagnosis and History 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 Final Diagnosis ASCENDING COLON POLYP: ? Tubular adenoma. JFJ/rw Amendments: Electronically Signed Out By Denis Lang M.D. Specimen(s) Received: Colon, polyp Gross Description The specimen, labeled ascending polyp, received in formalin, consists of a 0.3 x 0.3 x 0.2 cm mathew polyp which is submitted in toto in one cassette. ??HM/my Microscopic Description A tubular proliferation of crypts lined by cells with enlarged, hyperchromatic, overlapping nuclei. ??There is no evidence of in-situ or invasive carcinoma. JFJ/rw Procedures/Addenda us See Report Interface PATHOLOGY/CYTOLOGY ORDERABL ES Final Result [facility] [address] [place] [address], documented in this encounter Visit Diagnoses Not on filedocumented in this encounter Care Teams Youth Officer Relationship Specialty Start Date End Date Provider, [place] [address] PCP - General 12/21/14 12/29/14 documented as of this encounter
--- OUTSIDE RECORDS SUMMARY | 2024-02-20 09:19 | XMS_ITS | Encounter Summary ---
[facility] Address [address] [place] [address] Care Team Providers Care Core Maker Helper Name Role Phone Deepak Cortez MD Primary Care Provider Unav ailable Encounter Details Date Type Department Care Team (Late st Contact Info) Description 10/24/2012 Documentation Converted [facility] HISTORICAL CONV [address] [place] [address] Provider, MD Aiyana [address] [place] [address] Social History Tobacco Use Types Packs/Day Years Used Date Smoking Tobacco: Never Assessed Comments Unknown Sex and Gender Information Value Date Recorded Sex Assigned at Not on file Legal Sex Female 10:25 AM EDT Gender Identity Not on file Sexual Orientation Not on file documented as of this encounter Miscellaneous Notes * Letter - Bebeto Adams - 10/24/2012 5:25 PM EDT Gertrudis Mazariegos requests to return to work. 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 Mrs. Mazariegos has a 10 pound limitation on lifting, bending, twisting, pulling or tugging. If further restrictions are needed, you may want to consider a functional capacity evaluation. If you have any questions please don't hesitate to call the office at [phone] Electronically signed by : Irena Borrego, ; Oct 24 2012 5:47PM (Author) Electronically signed by : Irena Borrego, ; Oct 29 2012 4:33PM (Author) * Telephone Encounter - Interface, See Report - 10/24/2012 5:25 PM EDT Message Pt. 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 Irena &Dr. 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 before PT. Signatures Electronically signed by : Irena Lynne, ; Oct 24 2012 5:54PM (Author) documented in this encounter Plan of Treatment Upcoming Encounters Date Type Department Care Team (Late st Contact Info) Description 03/13/2024 2:45 PM EST Office Visit [facility] CARDIOLOGY [address] [facility] [address] [place] [address] [place] [address] Pj Ace MD [address] [facility] [address] [address] documented as of this encounter Visit Diagnoses Not on filedocumented in this encounter Care Teams Core Maker Helper Relationship Specialty Start Date End Date Deepak Cortez MD PCP - General 12/31/14 12/12/16 documented as of this encounter
--- OUTSIDE RECORDS SUMMARY | 2024-02-20 09:19 | XMS_ITS | Encounter Summary ---
[facility] Address [address] [place] [address] Care Team Providers Care Bicycle Courier Name Role Phone Deepak Cortez MD Primary Care Provider Unav ailable Encounter Details Date Type Department Care Team (Late st Contact Info) Description 01/10/2013 Office Visit Converted [facility] INTERNAL MEDICINE [address] [place] [address] Leidy Robertson MD [address] [place] [address] Social History Tobacco Use Types Packs/Day Years Used Date Smoking Tobacco: Never Assessed Comments Unknown Sex and Gender Information Value Date Recorded Sex Assigned at Not on file Legal Sex Female 10:25 AM EDT Gender Identity Not on file Sexual Orientation Not on file documented as of this encounter Last Filed Vital Signs Vital Sign Reading Time Taken Comments Blood Pressure 118/78 01/10/2013 12:18 PM EDT Pulse 84 01/10/2013 12:18 PM EDT Temperature 36.7 ??C (98 ??F) 01/10/2013 12:18 PM EDT Respiratory Rate - - Oxygen Saturation - - Inhaled Oxygen Concentration - - Weight 89.6 kg (197 lb 8.2 oz) 01/10/2013 12:18 PM EDT Height - - Body Mass Index 36.13 11/21/2012 9:00 AM EDT documented in this encounter Progress Notes * Leidy Robertson MD - 01/10/2013 11:45 AM EDT Chief Complaint Patient is having trouble with anxiety and depression. History of Present Illness HPI: had 2 surgeries, seeing pain mgmt and getting injections, pain mgmt dr sent her to psychologist, because consideration is pain pump, still can't bend over and squat without consequences, when saw psychologist, can't do pump if has stress and anxiety and rec she see MD changes in her life due to pain have been trememdous, can't stop anywhere after work, got , adjusting to that took lexapro in past, did not like it also too much hair on face, like peach fuzz Review of Systems Constitutional: negative. Musculoskeletal: as noted in HPI. Psychiatric: as noted in HPI. Active Problems 1. Alopecia 704.00 2. Backache [...] Infection 599.0 15. Vitamin D Deficiency 268.9 Current Meds 1. Emilia Contour Test In Vitro Strip; USE DIRECTED; Therapy: [id number] to (Last Rx:[id number]) Requested for: [id number] 2. Edarbyclor 40-12.5 MG Oral Tablet; TAKE TWO TABLETS BY MOUTH EVERY DAY; Therapy: 02Feb2012 to (Evaluate:92Pml5766) Requested for: 23Rcr0708; Last Rx:[id number] 3. Lancets Miscellaneous; USE DIRECTED; Therapy: 01Fuk9719 to (Last Rx:[id number]) Requested for: 42Apw7201 4. Omeprazole 20 MG Oral Capsule Delayed Release; TAKE ONE CAPSULE BY MOUTH EVERY DAY; Therapy: 15Jan2012 to (Evaluate:06Yur4999) Requested for: 64Ukk1659; Last Rx:[id number] 5. Xanax 0.25 MG Oral Tablet; TAKE TABLET PRN; Therapy: 15Jan2012 to Allergies 1. Actos TABS 2. Flexeril TABS 3. MetFORMIN HCl TABS 4. Norvasc TABS Vitals Signs [Data Includes: Current Encounter] Temperature: 98 F, Heart Rate: 84, Systolic: 118, Diastolic: 78, BMI Calculated: 36.35, BSA Calculated: 1.9, Weight: 197 lb 8 oz Assessment 1. Acute Reaction To Stress With Disturbance Of Emotions 308.0 anxiety and depression relating to change in health prior labs reviewed Plan Health Maintenance (V70.0) ?? Spironolactone 50 MG Oral Tablet; TAKE 1 TABLET DAILY; Therapy: 10Jan2013 to (Evaluate:09Jul2013) Requested for: 10Jan2013; Last Rx:10Jan2013; Edited cymbalta 30 mg QD , samples provided, patient to call and let us know how she tolerates spironolactone 50 mg qd for hirsuitism, has appt coming up, will need K checked then and possible increase in med Signatures Electronically signed by : Leidy Robertson M.D.; Jan 11 2013 2:18PM (Author) documented in this encounter Miscellaneous Notes * Letter - Leidy Robertson MD - 01/10/2013 11:45 AM EDT Discussion/Summary Discussion Summary Free Text Note Form: Essence- we need to work harder on your sugar and cholesterol. Let's recheck these labs, fasting, atyour convenience, and see where we are. Then we can treat what we need to. Work hard on eliminatingsugar and starches from your diet. Let me know when you want to check your labs, fasting. CMP [id number] 08:56PM Leidy Robertson Test Name Result Flag Reference Glucose, Serum 115 mg/dL H 65-99 Creatinine, Serum 0.59 mg/dL 0.57-1.00 eGFR If NonAfricn Am 104 mL/min/1.73 >59 eGFR If Africn Am 119 mL/min/1.73 >59 BUN 16 mg/dL 6-24 BUN/Creatinine Ratio 27 H 9-23 Sodium, Serum 141 mmol/L 134-144 Potassium, Serum 4.3 mmol/L 3.5-5.2 Chloride, Serum 100 mmol/L 97-108 Carbon Dioxide, Total 26 mmol/L 19-28 Calcium, Serum 9.8 mg/dL 8.7-10.2 Protein, Total, Serum 7.1 g/dL 6.0-8.5 Albumin, Serum 4.3 g/dL 3.5-5.5 Globulin, Total 2.8 g/dL 1.5-4.5 A/G Ratio 1.5 1.1-2.5 Bilirubin, Total 0.4 mg/dL 0.0-1.2 Alkaline Phosphatase, S 138 IU/L 25-150 AST (SGOT) 31 IU/L 0-40 ALT (SGPT) 62 IU/L H 0-32 Lipid Profile ( Comprehensive Panel ) [id number] 08:56PM Leidy Robertson Test Name Result Flag Reference Cholesterol, Total 242 mg/dL H 100-199 Triglycerides 130 mg/dL 0-149 HDL Cholesterol 55 mg/dL >39 According to ATP-III Guidelines, HDL-C >59 mg/dL is considered a negative risk factor for CHD. VLDL Cholesterol Bill 26 mg/dL 5-40 LDL Cholesterol Calc 161 mg/dL H 0-99 Comment: TSH [id number] 08:56PM Leidy Robertson Test Name Result Flag Reference TSH 2.780 uIU/mL 0.450-4.500 Signatures Electronically signed by : Leidy Robertson M.D.; Jan 11 2013 2:21PM (Author) documented in this encounter Plan of Treatment Upcoming Encounters Date Type Department Care Team (Late st Contact Info) Description 03/13/2024 2:45 PM EST Office Visit [facility] CARDIOLOGY [address] [facility] [address] [place] [place] [address] Pj Ace MD [facility] [facility] [address] [place] [address] documented as of this encounter Visit Diagnoses Not on filedocumented in this encounter Care Teams Bicycle Courier Relationship Specialty Start Date End Date Deepak Cortez MD PCP - General 12/31/14 12/12/16 documented as of this encounter
--- OUTSIDE RECORDS SUMMARY | 2024-02-20 09:19 | XMS_ITS | Encounter Summary ---
Author Organization [facility] Address [address] [place] [address] Care Team Providers Care Banking Paralegal Name Role Phone Deepak Cortez MD Primary Care Provider Unav ailable Encounter Details Date Type Department Care Team (Late st Contact Info) Description 02/07/2013 Office Visit Converted [facility] [address] [place] [address] Leidy Robertson MD [address] [place] [address] Social History Tobacco Use Types Packs/Day Years Used Date Smoking Tobacco: Never Assessed Comments Unknown Sex and Gender Information Value Date Recorded Sex Assigned at Not on file Legal Sex Female 10:25 AM EDT Gender Identity Not on file Sexual Orientation Not on file documented as of this encounter Last Filed Vital Signs Vital Sign Reading Time Taken Comments Blood Pressure 110/68 02/07/2013 2:57 PM EST Pulse 100 02/07/2013 2:57 PM EST Temperature - - Respiratory Rate - - Oxygen Saturation - - Inhaled Oxygen Concentration - - Weight 90.8 kg (200 lb 1.8 oz) 02/07/2013 2:57 P M EST Height 157.5 cm (5' 2 ) 02/07/2013 2:57 PM EST Body Mass Index 36.6 02/07/2013 2:57 PM EST documented in this encounter Progress Notes * Leidy Robertson MD - 02/07/2013 2:45 PM EST Chief Complaint pt is here to follow up on HTN. pt also wants to discuss mail order for her rx. History of Present Illness HPI: feels scared and confused inside, the least little thing sets her off stress, wants to run away, when on cymbalta didn't care so much zoloft-made her see cartoons, wellbutrin made her sweat and itch, lexapro-some problem spironolactone makes her sweat tried effexor Review of Systems Complete-Female: Constitutional: negative. Cardiovascular: negative. Respiratory: negative. Psychiatric: irritability, anxiety and depression, but as noted in HPI. Active Problems 1. Acute Reaction To Stress With Disturbance Of Emotions 308.0 2. Alopecia 704.00 3. Backache 724.5 4. Benign Essential Hypertension 401.1 5. Diabetes Mellitus 250.00 6. Dizziness 780.4 7. Herniated Lumbar Disc 722.10 8. Hyperlipidemia 272.4 9. Hypertension 401.9 10. Insomnia 780.52 11. Lumbar Radiculopathy 724.4 12. Lumbar Radiculopathy 724.4 13. Migraine Headache 346.90 14. Morbid Obesity 278.01 15. Taking Medication For A Long Time V58.69 16. Urinary Tract Infection 599.0 17. Vitamin D Deficiency 268.9 Past Medical History [...] Test In Vitro Strip; USE DIRECTED; Therapy: 88Mfz4629 to (Last Rx:[id number]) Requested for: [id number] 2. Cymbalta 30 MG Oral Capsule Delayed Release Particles; TAKE 1 CAPSULE DAILY; Therapy: 29Jan2013 to (Evaluate:85Dei1452) Requested for: 29Jan2013; Last Rx:[id number] 3. Edarbyclor 40-12.5 MG Oral Tablet; TAKE TWO TABLETS BY MOUTH EVERY DAY; Therapy: 02Feb2012 to (Evaluate:74Wgf3742) Requested for: 24Jan2013; Last Rx:[id number] 4. Lancets Miscellaneous; USE DIRECTED; Therapy: 32Usv7884 to (Last Rx:[id number]) Requested for: 29Wjx2896 5. Omeprazole 20 MG Oral Capsule Delayed Release; TAKE ONE CAPSULE BY MOUTH EVERY DAY; Therapy: 15Jan2012 to (Evaluate:40Xgp9540) Requested for: 16Hif8726; Last Rx:[id number] 6. Pravastatin Sodium 20 MG Oral Tablet; TAKE 1 TABLET DAILY AT BEDTIME; Therapy: 23Jan2013 to (Evaluate:17Uii4294) Requested for: 24Jan2013; Last Rx:[id number] 7. Spironolactone 50 MG Oral Tablet; TAKE 1 TABLET DAILY; Therapy: 10Jan2013 to (Evaluate:03Pwm3899) Requested for: 10Jan2013; Last Rx:[id number] 8. TraZODone HCl 50 MG Oral Tablet; TAKE 1-2 TABLETS AT BEDTIME NEEDED; Therapy: 16Sep2012 to (Evaluate:53Kxw5836) Requested for: 13Jan2013; Last Rx:[id number] 9. Xanax 0.25 MG Oral Tablet; TAKE TABLET PRN; Therapy: 15Jan2012 to Allergies 1. Actos TABS 2. Flexeril TABS 3. MetFORMIN HCl TABS 4. Norvasc TABS Vitals Signs [Data Includes: Current Encounter] Heart Rate: 100, Systolic: 110, Diastolic: 68, BMI Calculated: 36.83, BSA Calculated: 1.91, Height:5 ft 2 in, Weight: 200 lb 1.6 oz Physical Exam General Complete Exam (Brief): Constitutional General appearance: No acute distress, well appearing and well nourished. Pulmonary Respiratory effort: No increased work of breathing or signs of respiratory distress. Auscultation of lungs: Clear to auscultation. Cardiovascular Auscultation of heart: Normal rate and rhythm, normal S1 and S2, without murmurs. Carotids normal. Examination of extremities for edema and/or varicosities: Normal. Assessment 1. Benign Essential Hypertension 401.1 2. Acute Reaction To Stress With Disturbance Of Emotions 308.0 30 min Plan pristiq samples given-phone follow up, rec marriage counselling bp controlled -continue current meds Signatures Electronically signed by : Leidy Robertson M.D.; Mar 10 2013 10:55PM (Author) documented in this encounter Plan of Treatment Upcoming Encounters Date Type Department Care Team (Late st Contact Info) Description 03/13/2024 2:45 PM EST Office Visit [facility] [address] [facility] [place] [address] [place] [address] Pj Ace MD [address] [facility] [address] [address] documented as of this encounter Visit Diagnoses Not on filedocumented in this encounter Care Teams Banking Paralegal Relationship Specialty Start Date End Date Deepak Cortez MD PCP - General 12/31/14 12/12/16 documented as of this encounter
--- OUTSIDE RECORDS SUMMARY | 2024-02-20 09:19 | XMS_ITS | Encounter Summary ---
Author Organization [facility] yste Address [address] [place] [address] Care Team Providers Care Air Pollution Control Engineer Name Role Phone Deepak Cortez MD Primary Care Provider Unav ailable Encounter Details Date Type Department Care Team (Late st Contact Info) Description 10/25/[address] [facility] HISTORICAL CONV [address] [place] [address] Provider, MD Aiyana [address] [place] [address] Social History Tobacco Use Types Packs/Day Years Used Date Smoking Tobacco: Never Assessed Comments Unknown Sex and Gender Information Value Date Recorded Sex Assigned at Not on file Legal Sex Female 10:25 AM EDT Gender Identity Not on file Sexual Orientation Not on file documented as of this encounter Miscellaneous Notes * Telephone Encounter - Interface, See Report - 10/25/2012 5:03 PM EDT Message Recorded as Task Date: 10/25/2012 03:05 PM, Created By: Maria Schwab Task Name: Personal Assigned To: Francis Jaimes Regarding Patient: GERTRUDIS JACOBSON, Status: Active Comment: Maria Schwab - 25 Oct 2012 3:05 PM TASK CREATED Caller: Self; Personal; ; FYI: PT HAS A NEW PRESCRIPTION CARD THAT HAS BEEN SCANNED IN UNDER INSURANCE CARDS. I've labeled it Prescription card. pt said that the company will start notifying us when she needs a refill. this card will be cheaper copays for her. Francis Jaimes - 25 Oct 2012 5:03 PM TASK EDITED noted This information has been noted. Signatures Electronically signed by : Francis Jaimes, ; Oct 25 2012 5:03PM (Author) documented in this encounter Plan of Treatment Upcoming Encounters Date Type Department Care Team (Late st Contact Info) Description 03/13/2024 2:45 PM EST Office Visit [facility] CARDIOLOGY [address] [place] [address] [place] [address] Pj Ace MD [address] [facility] [address] [place] [address] documented as of this encounter Visit Diagnoses Not on filedocumented in this encounter Care Teams Air Pollution Control Engineer Relationship Specialty Start Date End Date Deepak Cortez MD PCP - General 12/31/14 12/12/16 documented as of this encounter
--- OUTSIDE RECORDS SUMMARY | 2024-02-20 09:19 | XMS_ITS | Clinical Summary ---
Author Organization [facility] Address [address] [place] [address] Care Team Providers Care Regional Education Coordinator Name Role Phone Ev Augustin Primary Care Provider [phone] Allergies Active Allergy Reactions Criticality Noted Date Comments Iain Inhibitors Cough Medium 08/10/2015 Amlodipine Diarrhea,Other - ple ase document in the comment field Medium 08/10/2015 Beta Adrenergic Blockers Cough,Rash,Othe r - please document in the comment field Medium 08/10/2015 Cyclobenzaprine Other - please docum ent in the comment field,Rash Medium 08/10/2015 Empagliflozin Rash Low 09/05/2021 Hydrochlorothiazide Rash Medium 08/10/2015 Latex Rash Medium 08/10/2015 Losartan Rash Low 08/10/2015 Losartan Potassium-Hctz Rash Low 08/10/2015 Metformin Other - please docum ent in the comment field Medium 08/10/2015 Penicillins Rash Medium 08/10/2015 Pioglitazone Itching,Rash Medium 08/10/2015 Spironolactone Rash Medium 08/10/2015 Statins Cough Medium 03/04/2021 Medications baclofen (Lioresal) 10 MG tablet Take 1 tablet (10 mg) by mouth 3 times a day. Active cefuroxime (Ceftin) 500 MG tablet TAKE 1 TABLET BY MOUTH EVERY 12 HOURS FOR 10 DAYS Active cetirizine (ZyrTEC ALLERGY) 10 MG tablet Take 1 tablet every day by oral route as needed for 30 days. Active bethanechol (Urecholine) 50 MG tablet Take 1 tablet 3 times a day by oral route with meals for 30 days. Active chlorhexidine (Peridex) 0.12 % solution RINSE WITH 15ML FOR 30 SECONDS AND SPIT, USE TWICE DAILY Active cholecalciferol (Vitamin D-3) 5,000 Units tablet Take 1 tablet (5,000 Units) by mouth 1 (one) time each day. Active cyclobenzaprine (Flexeril) 10 MG tablet Take 1 tablet (10 mg) by mouth. Active desvenlafaxine (Pristiq) 50 MG 24 hr tablet 4 Active docusate sodium (Colace) 100 MG capsule Take 1 capsule every day by oral route as directed for 30 days. Active rOPINIRole (Requip) 1 MG tablet Take 1 tablet (1 mg) by mouth Daily. 4 Active POTASSIUM PO Take 1 tablet by mouth 1 (one) time each day. Active traZODone (Desyrel) 50 MG tablet Take 1 tablet (50 mg) by mouth Daily. Active topiramate 50 MG tablet Take 1 tablet twice a day by oral route as directed for 30 days. 3 Active traMADol (Ultram) 50 MG tablet Take 1 tablet every 8 hours by oral route for 30 days. 3 Active furosemide (Lasix) 20 MG tablet Take 1 tablet (20 mg) by mouth if needed. Active insulin glargine (Lantus SoloStar) 100 UNIT/ML injection pen 3 Active insulin lispro (HumaLOG KWIKPEN) 100 UNIT/ML injection pen Inject 16 units every day by subcutaneous route before meals for 30 days. Active losartan (Cozaar) 100 MG tablet 3 Active meloxicam (Mobic) 7.5 MG tablet Take 1 tablet (7.5 mg) by mouth Daily. Active NIFEdipine XL (Procardia XL) 90 MG 24 hr tablet Take 1 tablet (90 mg) by mouth 1 (one) time each day. 4 Active omeprazole (PriLOSEC) [address] capsule Take 1 capsule every day by oral route as directed for 30 days. 3 Active naloxegol oxalate (Movantik) 25 MG tablet Active Plecanatide (Trulance) 3 MG tablet Active amoxicillin-cla vulanate (Augmentin) 875-125 MG tablet 4 Active levothyroxine (Synthroid, Levoxyl) 25 MCG tablet Take 1 tablet (25 mcg) by mouth 1 (one) time each day. 4 Active Tradjenta 5 MG tablet Take 1 tablet (5 mg) by mouth 1 (one) time each day. 4 Active albuterol 108 (90 Base) MCG/ACT inhaler Inhale 2 puffs 4 (four) times a day. 1 each 11 4 Active Immunizations Name Administration Dates Next Due Hep B, adult 11/12/2018,06/10/2018,05/13/2018 Influenza, high-dose, quadrivalent 02/27/2023 Influenza, injectable, MDCK, preservative free, quadrivalent 02/08/2018 Influenza, injectable, quadr ivalent, preservative free 01/28/2016 Influenza, live, intranasal, quadrivalent 2012 Pneumococcal Polysaccharide PPV23 05/08/2016 Tdap 05/07/2015 Family History Medical History Relation Name Comments Asthma Maternal Grandfather Kidney disease Maternal Grandmother Diabetes Mother Kidney disease Mother Lung cancer Sister Relation Name Status Comments Brother Alive Father Maternal Grandfather Maternal Grandmother Mother Sister Alive Social History Tobacco Use Types Packs/Day Years [...] on file Sexual Orientation Not on file Last Filed Vital Signs Vital Sign Reading Time Taken Comments Blood Pressure 151/80 11/08/2023 12:45 PM EDT Pulse 108 11/08/2023 12:45 PM EDT Temperature 36.7 ??C (98.1 ??F) 11/08/2023 12:45 PM E DT Respiratory Rate 18 11/08/2023 12:45 PM EDT Oxygen Saturation 92% 11/08/2023 12:45 PM EDT Inhaled Oxygen Concentration - - Weight 83.6 kg (184 lb 4.9 oz) 11/08/2023 12:45 PM EDT Height 157.5 cm (5' 2 ) 11/08/2023 12:45 PM EDT Body Mass Index 33.71 11/08/2023 12:45 PM EDT Plan of Treatment Health Maintenance Due Date Last Done Comments [facility]-Bone Density Scan 1956 [facility]-Infant/Child/Adol SDOH Screenings 1956 [facility]- SDOH Screenings 1974 [facility]-Adult SDOH Screenings 1974 CT Colonography 2001 Colonoscopy 2001 FIT-DNA 2001 FIT 2001 FOBT 2001 Sigmoidoscopy 2001 [facility]-Colorectal Cancer Screening 2001 [facility]-Zoster Vaccines (1 of 2) 2006 [facility]-Pneumococcal Vaccine: 65+ Years (2 of 2 - PCV) 2021 05/08/2016 [id number] Vaccine (1 - season) 2023 [facility]-Influenza Vaccine (#1) 12/02/202302/27, 02/08/2018, 01/28/2016, Additional history exists [facility]-Depression Screening 11/07/2024 11/08/2023 [facility]-DTaP,Tdap,and Td Vaccines (2 - Td or Tdap) 05/07/2025 05/07/2015 [facility]-Breast Cancer Screening 06/11/202505/31, 06/12/2023, 09/28/2021, Additional history exists [facility]-RSV Vaccine: 60+ Years or (1 - 1-dose 75+ series) 12/25/2031 [facility]-Hepatitis C Screening Completed 11/08/2023 [facility]-Obesity Intervention Completed 11/08/2023 [facility]-HIB Vaccines Aged Out No longer e ligible based on patient's age to complete this topic [facility]-HPV Vaccines Aged Out No longer e ligible based on patient's age to complete this topic [facility]-Hepatitis A Vaccines Aged Out No longer eligible based on patient's age to complete this topic [facility]-IPV Vaccines Aged Out No longer e ligible based on patient's age to complete this topic [facility]-Rotavirus Vaccines Aged Out No lo nger eligible based on patient's age to complete this topic Procedures Procedure Name Priority Date/Time Associated Diagnosis Comments ACUTE HEPATITIS PANEL Routine 11/08/2023 1:57 PM EDT Polyarthralgia from Last 3 Months or Most Recently Relevant to Health Maintenance Results * Acute Hepatitis Panel (11/08/2023 1:57 PM EDT) Hepatitis B Surf Antigen Negative Negative 11/08/2023 4:13 PM EDT [facility] Hepatitis C Antibody Negative Negative 11/08/2023 4:13 PM EDT [facility] Hepatitis A Antibody IgM Negative Negative 11/08/2023 4:13 PM EDT [facility] Hepatitis B Core Antibody IgM Negative Negative 11/08/2023 4:13 PM EDT [facility] Blood Venous blood specimen / Unknown Venipuncture / Unknown 11/08/2023 1:57 PM EDT 11/08/2023 2:01 PM EDT Denis Hudson APRN LAB BLOOD ORDERABLES Final Res ult Performing Organization Address City/State/[facility] Co de Phone Number [facility] [address] [place] [address] from Last 3 Months or Most Recently Relevant to Health Maintenance Insurance [facility] [place] [address] Care Teams Regional Education Coordinator Relationship Specialty Start Date End Date Ev Augustin [address] [place] [address] PCP - General 08/13/20
--- OUTSIDE RECORDS SUMMARY | 2024-02-20 09:19 | XMS_ITS | Encounter Summary ---
Author Organization [facility] Address [address] [place] [address] Care Team Providers Care Payroll Supervisor Name Role Phone Deepak Cortez MD Primary Care Provider Unav ailable Encounter Details Date Type Department Care Team (Late st Contact Info) Description 12/13/2012 Documentation Converted [facility] HISTORICAL CONV [address] [place] [address] Bebeto Adams MD [address] [facility] [address] [place] [address] Social History Tobacco Use Types Packs/Day Years Used Date Smoking Tobacco: Never Assessed Comments Unknown Sex and Gender Information Value Date Recorded Sex Assigned at Not on file Legal Sex Female 10:25 AM EDT Gender Identity Not on file Sexual Orientation Not on file documented as of this encounter Miscellaneous Notes * Telephone Encounter - Interface, See Report - 12/13/2012 12:00 AM EDT Message Recorded as Task Date: 2012 12:10 PM, Created By: Katherine Meza Task Name: Follow Up Assigned To: Francis Jaimes Regarding Patient: GERTRUDIS JACOBSON, Status: In Progress Comment: Katherine Meza - 2012 12:10 PM TASK CREATED Caller: Self; General Medical Question; ; Patient called and stated that she spoke with her HR at work and she needs to be scheduled for a physical on or before January [address] Robertson doesn't have any time open. This physical will be billed under patient's [employer] insurance. Please advise Patient can be reached at [phone] Thanks Kalani Tadeo - 2012 12:49 PM TASK EDITED needs to see Sandy or Madelaine called patient to book appt but got vm. left message for her to call office and book Francis Jaimes 2012 4:04 PM TASK IN PROGRESS Francis Jaimes 25 Dec 2012 9:57 AM TASK EDITED PATIENT HAS SCHEDULED WITH SANDY FOR 01/17 FOR HER PHYSICAL. TASK IS COMPLETED. Signatures Electronically signed by : Francis Jaimes, ; Dec 25 2012 10:00AM (Author) * Telephone Encounter - Interface, See Report - 12/13/2012 12:00 AM EDT Message Recorded as Task Date: 2012 12:10 PM, Created By: Katherine Meza Task Name: Follow Up Assigned To: Francis Jaimes Regarding Patient: GERTRUDIS JACOBSON, Status: In Progress Comment: Katherine Meza - 2012 12:10 PM TASK CREATED Caller: Self; General Medical Question; ; Patient called and stated that she spoke with her HR at work and she needs to be scheduled for a physical on or before January [address] Robertson doesn't have any time open. This physical will be billed under patient's [employer] insurance. Please advise Patient can be reached at [phone] Thanks Kalani Tadeo - 2012 12:49 PM TASK EDITED needs to see Sandy or Madelaine called patient to book appt but got vm. left message for her to call office and book Francis Jaimes 2012 4:04 PM TASK IN PROGRESS Francis Jaimes 25 Dec 2012 9:57 AM TASK EDITED PATIENT HAS SCHEDULED WITH SANDY FOR 01/17 FOR HER PHYSICAL. TASK IS COMPLETED. Signatures Electronically signed by : Francis Jaimes, ; Dec 25 2012 9:59AM (Author) documented in this encounter Plan of Treatment Upcoming Encounters Date Type Department Care Team (Late st Contact Info) Description 03/13/2024 2:45 PM EST Office Visit [facility] [address] [place] [address] [place] [address] Pj Ace MD [address] [facility] [address] [place] [address] documented as of this encounter Visit Diagnoses Not on filedocumented in this encounter Care Teams Payroll Supervisor Relationship Specialty Start Date End Date Deepak Cortez MD PCP - General 12/31/14 12/12/16 documented as of this encounter
--- OUTSIDE RECORDS SUMMARY | 2024-02-20 09:19 | XMS_ITS | Encounter Summary ---
[facility] Organization [facility] Address [address] [place] [address] Care Team Providers Care Mails Supervisor Name Role Phone Deepak Cortez MD Primary Care Provider Unav ailable Encounter Details Date Type Department Care Team (Late st Contact Info) Description 03/06/2013 Office Visit Converted [facility] [address] [phone] Bebeto Adams MD [address] [facility] [address] [place] [address] Social History Tobacco Use Types Packs/Day Years Used Date Smoking Tobacco: Never Assessed Comments Unknown Sex and Gender Information Value Date Recorded Sex Assigned at Not on file Legal Sex Female 10:25 AM EDT Gender Identity Not on file Sexual Orientation Not on file documented as of this encounter Last Filed Vital Signs Vital Sign Reading Time Taken Comments Blood Pressure 117/72 03/06/2013 7:11 AM EST Pulse 91 03/06/2013 7:11 AM EST Temperature 36.4 ??C (97.6 ??F) 03/06/2013 7:11 AM ES T Respiratory Rate - - Oxygen Saturation 95% 03/06/2013 7:11 AM EST Inhaled Oxygen Concentration - - Weight 90.9 kg (200 lb 8.1 oz) 03/06/2013 7:11 A M EST Height 157.5 cm (5' 2 ) 03/06/2013 7:11 AM EST Body Mass Index 36.67 03/06/2013 7:11 AM EST documented in this encounter Progress Notes * Bebeto Adams 03/06/2013 7:00 AM EST Chief Complaint My pain has returned. I have pain in my lower back, left hip, buttocks,and my leg all the way to my foot. History of Present Illness HPI: Mrs. Mazariegos is here for follow up of left sacroiliac joint injection and left piriformis muscleinjection performed on 01/13/2013. She reports receiving 70% pain relief lasting approximately one month. The pain gradually returned over the last 2 weeks. The patient complains of lower back pain occuring with standing or walking greater than 10 minutes. She complains of constant pain in the lefthip, left buttick, and left lower extremity to the foot, described has a dull ache, changing to a throbbing pain with any type of activity. The pain ranges from 3-10/10 depending on activity level. 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 She states during the workdayher pain increases to 10/10, making it difficult for her to walk 100 feet to the bathroom. She is unable to walk to the cafeteria to take her breaks. Patient denies numbness or weakness in her lower extremities, or any new bladder lower problems. Following her procedure, she attended one visit of physical therapy 3 weeks ago but did not return, stating I was hurting too bad. She did not follow up with Dr. Neville as instructed. She is no longer attending [facility], recently regaining 6 pounds. She states, they told me to call as needed . She continues trazodone 50-100 mg each bedtime. She did not start Topamax as instructed reporting that she experiences difficulties/side effects with oral medications. A previous trial with Cymbalta caused her to experience weird thoughts. The patient denies any new health related issues. [facility] #[id number], appropriate. Patient does not take any controlled substances. Review of Systems Complete-Female: Head and Face: negative. Eyes: negative. ENT: negative. Cardiovascular: palpitations. Respiratory: shortness of breath, sleeping upright or with extra pillows and cough. Gastrointestinal: abdominal bloating and constipation. Genitourinary: negative. [...] Test In Vitro Strip; USE DIRECTED; Therapy: [id number] to (Last Rx:[id number]) Requested for: [id number] 2. Edarbyclor 40-12.5 MG Oral Tablet; TAKE TWO TABLETS BY MOUTH EVERY DAY; Therapy: 02Feb2012 to (Evaluate:23Jul2013) Requested for: 24Jan2013; Last Rx:24Jan2013 3. Lancets Miscellaneous; USE DIRECTED; Therapy: 29Cgz4772 to (Last Rx:[id number]) Requested for: [id number] 4. Omeprazole 20 MG Oral Capsule Delayed Release; TAKE ONE CAPSULE BY MOUTH EVERY DAY; Therapy: 15Jan2012 to (Evaluate:15Bem8351) Requested for: 62Sim3331; Last Rx:[id number] 5. Pravastatin Sodium 20 MG Oral Tablet; TAKE 1 TABLET DAILY AT BEDTIME; Therapy: 23Jan2013 to (Evaluate:04Rac1203) Requested for: 24Jan2013; Last Rx:[id number] 6. Spironolactone 50 MG Oral Tablet; TAKE 1 TABLET DAILY; Therapy: 10Jan2013 to (Evaluate:13Oxr7947) Requested for: 10Jan2013; Last Rx:[id number] 7. TraZODone HCl 50 MG Oral Tablet; TAKE 1-2 TABLETS AT BEDTIME NEEDED; Therapy: 16Sep2012 to (Evaluate:11Uep8465) Requested for: 13Jan2013; Last Rx:[id number] 8. Xanax 0.25 MG Oral Tablet; TAKE TABLET PRN; Therapy: 15Jan2012 to Allergies 1. Actos TABS 2. Flexeril TABS 3. MetFORMIN HCl TABS 4. Norvasc TABS Vitals Signs [Data Includes: Current Encounter] Temperature: 97.6 F, Heart Rate: 91, Systolic: 117, Diastolic: 72, BMI Calculated: 36.9, BSA Calculated: 1.91, Height: 5 ft 2 in, Weight: 200 lb 8 oz, O2 Saturation: 95 Physical Exam General Complete [...] have proposed the following plan: 1. Patient would like to be scheduled for a spinal cord stimulator trial in April 2013. We will see her for follow-up on 04/08/2013 at 08:00 AM to plan her procedure accordingly. 2. Patient will undergo CBC, PT, PT before her trial. 3. Follow-up with Dr. Diogenes Neville for psychological clearance for a potential spinal cord stimnulator trial. In addition, I have recommended cognitive behavioral therapy and biofeedback. 4. Patient will start a comprehensive physical therapy program once her pain is under control. 5. Start independent exercise program, particularly for aqua therapy immediately. 6. Continue trazodone 50-100 mg each bedtime for insomnia. 7. Follow-up at [facility]. 8. Trial with tizanidine 2 mg half a tablet to a tablet 3 times a day when necessary muscle spasms. 9. The patient has been instructed to contact my office with any questions or difficulties. The patient understands the plan and agrees to proceed accordingly. Time spent taking the patient's history and performing physical examination: 10 minutes Time spent advising the patient and discussing plan of care at length: 25 minutes cc: Damien Berg M.D. Leidy Robertson M.D. Signatures Electronically signed by : Bebeto Adams M.D.; Mar 06 2013 9:25AM (Author) documented in this encounter Miscellaneous Notes * Letter - Interface, See Report - 03/06/2013 7:00 AM EST Please excuse Gertrudis from work today she was seen for an appointment in our clinic. If any questions please contact our office. Electronically signed by : Irena Borrego, ; Mar 06 2013 8:50AM (Author) * Letter - Bebeto Adams - 03/06/2013 7:00 AM EST Per your request, I saw GERTRUDIS MAZARIGEOS today in consultation for the assessment listed below. Chief Complaint My pain has returned. I have pain in my lower back, left hip, buttocks,and my leg all the way to my foot. History of Present Illness Mrs. Mazariegos is here for follow up of left sacroiliac joint injection and left piriformis muscle injection performed on 01/13/2013. She reports receiving 70% pain relief lasting approximately one month. The pain gradually returned over the last 2 weeks. The patient complains of lower back pain occuring with standing or walking greater than 10 minutes. She complains of constant pain in the left hip,left buttick, and left lower extremity to the foot, described has a dull ache, changing to a throbbing pain with any type of activity. The pain ranges from 3-10/10 depending on activity level. 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 She states during the workday her pain increases to 10/10, making it difficult for her to walk 100 feet to the bathroom. She is unableto walk to the cafeteria to take her breaks. Patient denies numbness or weakness in her lower extremities, or any new bladder lower problems. Following her procedure, she attended one visit of physical therapy 3 weeks ago but did not return, stating I was hurting too bad. She did not follow up with Dr. Neville as instructed. She is no longer attending [facility], recently regaining 6 pounds. She states, they told me to call as needed . She continues trazodone 50-100mg each bedtime. She did not start Topamax as instructed reporting that she experiences difficulties/side effects with oral medications. A previous trial with Cymbalta caused her to experience weirdthoughts. The patient denies any new health related issues. [facility] #[id number], appropriate. Patientdoes not take any controlled substances. Review of Systems Head and Face: negative. Eyes: negative. ENT: negative. Cardiovascular: palpitations. Respiratory: shortness of breath, sleeping upright or with extra pillows and cough. Gastrointestinal: abdominal bloating and constipation. Genitourinary: negative. [...] Test In Vitro Strip; USE DIRECTED; Therapy: 50Glu1335 to (Last Rx:[id number]) Requested for: [id number] 2. Edarbyclor 40-12.5 MG Oral Tablet; TAKE TWO TABLETS BY MOUTH EVERY DAY; Therapy: 02Feb2012 to (Evaluate:02Axp8245) Requested for: 81Oap9372; Last Rx:[id number] 3. Lancets Miscellaneous; USE DIRECTED; Therapy: 91Hnu3584 to (Last Rx:[id number]) Requested for: 31Xze1172 4. Omeprazole 20 MG Oral Capsule Delayed Release; TAKE ONE CAPSULE BY MOUTH EVERY DAY; Therapy: 73Bqe6833 to (Evaluate:65Cik4375) Requested for: 50Dkw8837; Last Rx:[id number] 5. Pravastatin Sodium 20 MG Oral Tablet; TAKE 1 TABLET DAILY AT BEDTIME; Therapy: 65Zei8756 to (Evaluate:70Zgp8679) Requested for: 23Fro8230; Last Rx:[id number] 6. Spironolactone 50 MG Oral Tablet; TAKE 1 TABLET DAILY; Therapy: 12Vug9943 to (Evaluate:29Chi6539) Requested for: 90Evp9229; Last Rx:[id number] 7. TraZODone HCl 50 MG Oral Tablet; TAKE 1-2 TABLETS AT BEDTIME NEEDED; Therapy: 16Sep2012 to (Evaluate:67Sys4179) Requested for: 13Jan2013; Last Rx:13Jan2013 8. Xanax 0.25 MG Oral Tablet; TAKE TABLET PRN; Therapy: 15Jan2012 to Allergies 1. Actos TABS 2. Flexeril TABS 3. MetFORMIN HCl TABS 4. Norvasc TABS Vitals Signs [Data Includes: Current Encounter] Temperature: 97.6 F, Heart Rate: 91, Systolic: 117, Diastolic: 72, BMI Calculated: 36.9, BSA Calculated: 1.91, Height: 5 ft 2 in, Weight: 200 lb 8 oz, O2 Saturation: 95 Physical Exam Constitutional General [...] have proposed the following plan: 1. Patient would like to be scheduled for a spinal cord stimulator trial in April 2013. We will see her for follow-up on 04/08/2013 at 08:00 AM to plan her procedure accordingly. 2. Patient will undergo CBC, PT, PT before her trial. 3. Follow-up with Dr. Diogenes Neville for psychological clearance for a potential spinal cord stimnulator trial. In addition, I have recommended cognitive behavioral therapy and biofeedback. 4. Patient will start a comprehensive physical therapy program once her pain is under control. 5. Start independent exercise program, particularly for aqua therapy immediately. 6. Continue trazodone 50-100 mg each bedtime for insomnia. 7. Follow-up at [facility]. 8. Trial with tizanidine 2 mg half a tablet to a tablet 3 times a day when necessary muscle spasms. 9. The patient has been instructed to contact my office with any questions or difficulties. The patient understands the plan and agrees to proceed accordingly. Time spent taking the patient's history and performing physical examination: 10 minutes Time spent advising the patient and discussing plan of care at length: 25 minutes cc: Damien Berg M.D. Leidy Robertson M.D. Thank you very much for allowing me to participate in the care of this patient. If you have any questions, please do not hesitate to contact me. Signatures Electronically signed by : Bebeto Adams M.D.; Mar 06 2013 9:26AM (Author) documented in this encounter Plan of Treatment Upcoming Encounters Date Type Department Care Team (Late st Contact Info) Description 03/13/2024 2:45 PM EST Office Visit [facility] [address] [place] [address] [place] [address] Pj Ace MD [address] [facility] [address] [place] [address] documented as of this encounter Visit Diagnoses Not on filedocumented in this encounter Care Teams Mails Supervisor Relationship Specialty Start Date End Date Deepak Cortez MD PCP - General 12/31/14 12/12/16 documented as of this encounter
--- OUTSIDE RECORDS SUMMARY | 2024-02-20 09:19 | XMS_ITS | Encounter Summary ---
[facility] Address [address] [place] [address] Care Team Providers Care Barge Hand Name Role Phone Provider, No Known Primary Care Provider Unavail able Encounter Details Date Type Department Care Team (Late st Contact Info) Description 07/09/2006 Conversion Encounter [facility] HISTORICAL CONV [address] [place] [address] Interface, See Report Social History [...] Office Visit [facility] CARDIOLOGY [address] [facility] [place] [place] [address] [place] [address] Pj Ace MD [address] [facility] [address] [place] [address] documented as of this encounter Procedures Procedure Name Priority Date/Time Associated Diagnosis Comments CONVERTED (HISTORICAL) SURGICAL PATHOLOGY Routine 07/09/2006 6:03 AM EDT documented in this encounter Results * Converted Surgical Pathology (07/09/2006 6:03 AM EDT) 07/09/2006 6:03 AM EDT [facility] LABORATORY - 07/12/2006 11:40 AM T [facility] SURGICAL PATHOLOGY REPORT Patient Name: GERTRUDIS JACOBSON MR#: [id number] : 1955 Gender: F Ordering Physician: VITO PLEITEZ :23A Copy To: ?? Location: [address] [place] [address] Collected: 07/09/2006 Received: 07/09/2006 Reported: 07/12/2006 Clinical Diagnosis and History The working history is uterine leiomyoma and fibroids. Final Diagnosis CERVIX, UTERUS, BILATERAL TUBES, AND OVARIES: ? Adenomyosis and benign leiomyomata. ? Endometrial mixed hormonal effect. ? Ovarian atrophy and histologically unremarkable fallopian tubes. ? Chronic cystic cervicitis. ? DGD/rw Electronically Signed Out By BALJEET SALGUERO Specimen(s) Received: Uterus +/- tubes/ovaries Gross Description The specimen, received in formalin, labeled cervix, uterus, bilateral tubes and ovaries, consists of a hysterectomy specimen with attached cervix and detached bilateral adnexa undesignated as to laterality. The uterine body and cervix have a combined weight of 170 grams. The uterine body measures 7.5 x 6.0 x 5.0 cm, the attached cervix measures 4.0 x 3.0 x 2.5 cm. The serosa is mathew/pink, smooth and glistening. The ectocervical mucosa is mathew, smooth and glistening and the cervical os is patent. The specimen is bivalved to reveal a 2.3 cm in length mathew, mucinous corrugated endocervical canal. ??The triangular endometrial cavity measures 4.0 x 3.0 cm and is surfaced by mathew endometrium measuring 0.2 cm in thickness. The anterior and posterior myometrium is mathew/pink and trabecular with multiple ill-defined mathew whorled nodules averaging 1.5 cm in greatest dimension. The bilateral ovaries average 3.0 x 2.0 x 2.0 cm and each has a mathew lobular surface. ??Sectioning of each reveals a mathew glistening cut surface. ??Sectioning through the bilateral tubes reveals a central lumen averaging 0.1 cm in diameter. ??No masses are appreciated. ??Coordinator Cardiopulmonary Services sections are submitted. Summary of sections: ??A-anterior and posterior cervix, B-full thickness anterior endomyometrium, C-full thickness posterior endomyometrium, F-fsl-qxsluct intramural nodule, and H-R-wbsnndwax adnexa; G-endocervical canal. ??HB/ais Microscopic Description Sections of the cervix show no ectocervical dysplasia or koilocytotic atypia. The endocervix shows chronic cystic cervicitis with tunnel cluster formation. The endometrium is notable for a mixed hormonal pattern with some proliferative and other secretory areas of the endometrium; no cytologic atypia or hyperplasia is evident. ??The myometrium is notable for several small benign leiomyomata. The leiomyomas are characterized by whorling smooth muscle bundles having no cytologic atypia and no increased mitotic activity. ??The ovaries are atrophic and have numerous corpora albicantia present. ??The fallopian tubes show no plical fusion or inflammation. ??DGD/rw us See Report Interface PATHOLOGY/CYTOLOGY ORDERABL ES Final Result [facility] [address] [place] [address], documented in this encounter Visit Diagnoses Not on filedocumented in this encounter Care Teams Barge Hand Relationship Specialty Start Date End Date Provider, [place] [address] PCP - General 12/21/14 12/29/14 documented as of this encounter
--- OUTSIDE RECORDS SUMMARY | 2024-02-20 09:19 | XMS_ITS | Encounter Summary ---
[facility] [address] [place] [address] Care Team Providers Care Jewel Grinder Name Role Phone Provider, No Known Primary Care Provider Unavail able Encounter Details Date Type Department Care Team (Late st Contact Info) Description 05/18/2006 Conversion Encounter [facility] HISTORICAL CONV [address] [place] [address] Interface, See Report Social History [...] Visit [facility] CARDIOLOGY [address] [facility] [address] Pj Ace MD [address] [facility] [address] [place] [address] documented as of this encounter Procedures Procedure Name Priority Date/Time Associated Diagnosis Comments CONVERTED (HISTORICAL) SURGICAL PATHOLOGY Routine 05/18/2006 2:50 PM EST documented in this encounter Results * Converted Surgical Pathology (05/18/2006 2:50 PM EST) 05/18/2006 2:50 PM [facility] LABORATORY - 05/22/2006 10:[address] [facility] SURGICAL PATHOLOGY REPORT Patient Name: GERTRUDIS JACOBSON MR#: [id number] : 1955 Gender: F Ordering Physician: VITO PLEITEZ :23A Copy To: [facility] Location: LAB Collected: 05/18/2006 Received: 05/18/2006 Reported: 05/22/2006 Clinical Diagnosis and History The working history is abnormal bleeding and fibroids. Final Diagnosis 1. ? ENDOCERVICAL CURETTINGS: ?Benign endocerivcal and endometrial tissue. 2. ? ENDOMETRIAL CURETTINGS: ?Proliferative endometrium with focal simple hyperplasia without atypia. Benign endometrial polyp and small benign endocervical polyp. MHB/ais Electronically Signed Out By NARA CHRISTENSEN Specimen(s) Received: 1: Endocervix, curettage 2: Endometrium, curretage Gross Description Specimen #1, received in formalin, labeled ECC, consists of a 0.6 x 0.6 x 0.2 cm aggregate of mathew/pink irregular soft tissue fragments which are wrapped and submitted in toto in cassette 1. Specimen #2, received in formalin, labeled EMC, consists of a 5.0 x 5.0 x 0.8 cm aggregate of mathew/red irregular soft tissue fragments which are wrapped and submitted in toto in cassette 2A-2B. ??HB/ais Microscopic Description The endocervical curettings show bits of benign endocervical tissue and endometrial tissue as well. ??The endometrium shows tubular and irregular glands lined by a pseudostratified lining with focal crowding or complexity. ??Some of the fragments have a polypoid configuration. ??A small endocervical polyp is seen as well. MHB/ais us See Report Interface PATHOLOGY/CYTOLOGY ORDERABL ES Final Result [facility] [address] [place] [address], documented in this encounter Visit Diagnoses Not on filedocumented in this encounter Care Teams Jewel Grinder Relationship Specialty Start Date End Date Provider, [place] [address] PCP - General 12/21/14 12/29/14 documented as of this encounter
--- OUTSIDE RECORDS SUMMARY | 2024-02-20 09:19 | XMS_ITS | Encounter Summary ---
Author Organization [facility] Address [address] [place] [address] Care Team Providers Care Asic Engineer Name Role Phone Deepak Cortez MD Primary Care Provider Unav ailable Encounter Details Date Type Department Care Team (Late st Contact Info) Description 10/11/2012 Documentation Converted [facility] HISTORICAL CONV [address] [place] [address] Damien Berg MD [address] [facility] [address] [place] [address] Social History Tobacco Use Types Packs/Day Years Used Date Smoking Tobacco: Never Assessed Comments Unknown Sex and Gender Information Value Date Recorded Sex Assigned at Not on file Legal Sex Female 10:25 AM EDT Gender Identity Not on file Sexual Orientation Not on file documented as of this encounter Miscellaneous Notes * Telephone Encounter - Interface, See Report - 10/11/2012 12:00 AM EDT Message Recorded as Task Date: 10/11/2012 10:18 AM, Created By: Pamela Marcial Task Name: Med Renewal Request Assigned To: Francis Jaimes Regarding Patient: GERTRUDIS JACOBSON, Status: Active Comment: Pamela Marcial - 11 Oct 2012 10:18 AM TASK CREATED Caller: Self; Renew Medication; ; (Mobile Phone) Pt called asking if we got the fax from [employer] for her future refills need to be 90 day supply. Her call back # [phone] pt said that she did not want to fill any medications at this time because she is going thru some insurance issues with a name change. Signatures Electronically signed by : Francis Jaimes, ; Oct 11 2012 12:08PM (Author) documented in this encounter Plan of Treatment Upcoming Encounters Date Type Department Care Team (Late st Contact Info) Description 03/13/2024 2:45 PM EST Office Visit [facility] CARDIOLOGY [address] [place] [address] [place] [address] Pj Ace MD [address] [facility] [address] [facility] [address] [place] [address] documented as of this encounter Visit Diagnoses Not on filedocumented in this encounter Care Teams Asic Engineer Relationship Specialty Start Date End Date Deepak Cortez MD PCP - General 12/31/14 12/12/16 documented as of this encounter
--- OUTSIDE RECORDS SUMMARY | 2024-02-20 09:19 | XMS_ITS | Encounter Summary ---
[facility] [address] [place] [address] Care Team Providers Care Residency Director Name Role Phone Deepak Cortez MD Primary Care Provider Unav ailable Encounter Details Date Type Department Care Team (Late st Contact Info) Description 11/28/2012 Telephone Converted [facility] HISTORICAL CONV [address] [place] [address] Provider, MD Aiyana [address] [place] [id number] Social History Tobacco Use Types Packs/Day Years Used Date Smoking Tobacco: Never Assessed Comments Unknown Sex and Gender Information Value Date Recorded Sex Assigned at Not on file Legal Sex Female 10:25 AM EDT Gender Identity Not on file Sexual Orientation Not on file documented as of this encounter Miscellaneous Notes * Telephone Encounter - Interface, See Report - 11/28/2012 5:18 PM EDT Message Recorded as Task Date: 11/29/2012 10:29 AM, Created By: Katherine Meza Task Name: Med Renewal Request Assigned To: Francis Jaimes Regarding Patient: GERTRUDIS JACOBSON, Status: Active Comment: Katherine Meza - 29 Nov 2012 10:29 AM TASK CREATED Caller: Self; Renew Medication; ; Patient needs a 90 day prescription on Edardyclor 40-12.5 mg/two a day and Omeprazole 20mg/once a day. Patient uses [facility] however she [facility] [place] [id number]. [employer] # /user # [id number] Please call patient at [phone] Thanks Francis Jaimes - 29 Nov 2012 12:46 PM TASK EDITED do we need to get the pa's done first or request the scrips? please advise. thank you. Mirna Baker - 29 Nov 2012 1:39 PM TASK REPLIED TO: Previously Assigned To Mirna Baker I'll call [employer] and ask them if a prior authorization is required. I wrote her info down so if she needs one I'll call [employer] to initiate one. Thanks! Francis Jaimes - 29 Nov 2012 3:11 PM TASK EDITED pt did not need refills. I told her that if she needed refills that we would send them to [facility] and they would fax us the pa papers needed. Pt said she would call next week. Signatures Electronically signed by : Francis Jaimes, ; Nov 29 2012 3:11PM (Author) * Telephone Encounter - Interface, See Report - 11/28/2012 5:18 PM EDT Message Recorded as Task Date: 11/29/2012 01:51 PM, Created By: Mirna Baker Task Name: Miscellaneous Assigned To: Francis Jaimes Regarding Patient: GERTRUDIS JACOBSON Of[place], Status: Active Comment: Mirna Baker - 29 Nov 2012 1:51 PM TASK CREATED As discussed, I don't think that it would require a PA for a 90 day supply from [facility] butif it does [facility] will send a request. Thanks Francis Jaimes - 29 Nov 2012 3:11 PM TASK EDITED this is a duplicate task task is completed. Signatures Electronically signed by : Francis Jaimes, ; Nov 29 2012 3:11PM (Author) * Telephone Encounter - Interface, See Report - 11/28/2012 5:18 PM EDT Message I tried to call [facility] and got her voice mail. I asked her to call back. Signatures Electronically signed by : Danelle Argueta, ; Dec 05 2012 1:17PM (Author) documented in this encounter Plan of Treatment Upcoming Encounters Date Type Department Care Team (Late st Contact Info) Description 03/13/2024 2:45 PM EST Office Visit [facility] CARDIOLOGY [address] [place] [address] [place] [address] Pj Ace MD [address] [facility] [address] [place] [address] documented as of this encounter Visit Diagnoses Not on filedocumented in this encounter Care Teams Residency Director Relationship Specialty Start Date End Date Deepak Cortez MD PCP - General 12/31/14 12/12/16 documented as of this encounter
--- OUTSIDE RECORDS SUMMARY | 2024-02-20 09:19 | XMS_ITS | Encounter Summary ---
Author Organization [facility] yste Address [address] [place] [address] Care Team Providers Care Motel Manager Name Role Phone Provider, No Known Primary Care Provider Unavail able Encounter Details Date Type Department Care Team (Late st Contact Info) Description 11/27/2008 Historical Mammograp hy Encounter [facility] HISTORICAL CONV [address] [place] [address] Interface, See Report Social History [...] Visit [facility] CARDIOLOGY [address] [facility] [place] [address] Pj Ace MD [address] [facility] [address] [place] [address] documented as of this encounter Procedures Procedure Name Priority Date/Time Associated Diagnosis Comments MAMMO HISTORICAL RESULT Routine 11/27/2008 10:12 AM EDT documented in this encounter Results * MAMMO HISTORICAL RESULT (11/27/2008 10:12 AM EDT) Anatomical Region Laterality Modality Breast Mammography 11/27/2008 10:1 2 AM EDT Narrative 11/27/2008 4:35 PM EDT ?[facility] ? [address] ??[place] [address] ? NAME: KAVONGERTRUDIS ? : ??57 ??MR#: [id number] ? LOC: ?? CO ? AGE: 52Y ?? Pt type: CO ?Exam Date: 11/27/08 1014 ? SEX: F ?? AN#:[id number] ?Ck-in#: [id number] ? [facility]ETER ? [address] ? [address] ? [place] ?[place] ?[address] ? Chk-in # ?? Order ?Exam ?[id number] ?? 0001 ? [id number] ??BC MAMM DIAG BILAT DIG PNL ? Ord Diag: BREAST PAIN ?[id number] ?? 0002 ? [id number] ??BC MAMM OUTSIDE FILM DIGITIZED ? Ord Diag: OS FILMS ? BILATERAL DIAGNOSTIC DIGITAL MAMMOGRAM: ?? HISTORY: ??The patient is a 67-hirm-iaw-female with no personal or family history of breast cancer. ??Pain left breast. ??No palpable area of concern. ?? FILM COMPARISON: ??Exam is compared to the only prior exams most recently dated 12/06 from [facility] analog. ?? FINDINGS: The breast parenchymal pattern is a mixture of fat and heterogeneously dense fibroglandular tissue. ??There are intramammary lymph nodes bilaterally and the tissue overall is nodular particularly in the upper outer quadrant on the right. ??On the left, there are extremely faint calcifications seen far posteriorly. ??There is motion on multiple magnification images attempted on these calcifications. ??We can finally in the end only see these reasonably well on the magnification Beata CC view and LM view which is not magnified. ??These certainly do not layered to suggest milk of calcium on the LM view. ??They may be small vascular calcifications, however, there are quite amorphous on the extended CC view. ??Ultrasound of the area of pain will be performed. Regardless stereotactic biopsy is recommended of the faint calcifications. ??Ultrasound will also be performed of the upper outer quadrant on the right. ?? IMPRESSION: ??Bi-Rads Category 0, incomplete. ??Please accept as an order for additional imaging. ? FINAL ?CONTINUED ?Page ??1 ? RADIOLOGY REPORT ?[facility] ? [address] ??[place] [address] ? NAME: JACOBSON,GERTRUDIS ? : ??[birth year] ??MR#: [id number] ? LOC: ?? CO ? AGE: 52Y ?? Pt type: CO ?Exam Date: 11/27/08 1014 ? SEX: F ?? AN#:[id number] ?Ck-in#: [id number] ? [facility] ? [address] ? [address] ? [place] ?[place] ?[address] ? Checkin-Exam Code Summary ? [phone] RECOMMENDATION: ??Additional imaging. ??Bilateral ultrasound directed to the area of pain on the left and in the upper outer quadrant on the right. ?? The results, in lay terminology, were given to the patient at the conclusion of her exam. ?/READ BY/ RALPH CORONA ?/Released By/ RALPH CORONA ?Released By Date/Time: ??11/27/085 ?Dryland Farmer: ??MJP ? FINAL ? Page ??2 ? RADIOLOGY REPORT us See Report Interface IMG MAMMOGRAPHY ORDERABLES Final Result documented in this encounter Visit Diagnoses Not on filedocumented in this encounter Care Teams Motel Manager Relationship Specialty Start Date End Date Provider, [place] [address] PCP - General 12/21/14 12/29/14 documented as of this encounter
--- OUTSIDE RECORDS SUMMARY | 2024-02-20 09:19 | XMS_ITS | Encounter Summary ---
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 Danelle Lennon, CHUCK BONER [address] [place] [address] Phone: tel: fax: [facility] [address] [place] [address] Phone: tel: fax: Referral ID Status Reason Start Date Expiration Date V isits Requested Visits Authorized [id number] Closed Specialty Services Required 10/09/2023 04/09/2025 1 1 Encounter Details Date Type Department Care Team (Late st Contact Info) Description 11/08/2023 12:30 PM EDT Consult [facility] [address] [place] [address] Denis Hudson, CHUCK BONER [address] [place] [address] Polyarthralgia (Primary Dx); Fibromyalgia; Adventitious breath sounds Social History Tobacco Use Types Packs/Day Years [...] Mass Index 33.71 11/08/2023 12:45 PM EDT documented in this encounter Miscellaneous Notes * Lola Alonso - Denis Hudson, CHUCK BONER - 11/08/2023 1:24 PM EDT Images from the original note were not included. [id number] Understanding Polyarthritis Polyarthritis is a term for arthritis that affects 5 or more joints at the same time. This condition causes joint pain, stiffness, and swelling. It can occur in both children and adults. Polyarthritis can have many possible causes. So it?s important to try to find the cause of the condition to get the correct treatment. What causes polyarthritis? Many things can cause polyarthritis including Structural arthritis, autoimmune disease, crystal arthritis, infectious arthritis, medicine-related arthritis and paraneoplastic syndromes. ?? Structural arthritis: o Osteoarthritis o Trauma ?? Autoimmune disease: o Rheumatoid arthritis o Psoriatic arthritis o Sjogrens syndrome o Reactive arthritis o Myositis o Lupus o Vasculitis o Sarcoid ?? Crystal arthritis: o Gout o Psuedogout ?? Infectious arthritis: o Bacterial infections ?? Lyme disease ?? Staph infection (staphylococcus) ?? Meningococcal infection o Viral infections ?? Hepatitis A, B, or C ?? HIV ?? Rubella ?? Human parovirus B19 ?? Babar-Salgado virus ?? Paraneoplastic syndromes ?? Medicine side effects most commonly from antithyroid medicines, antibiotics such as clindamycin,and immune checkpoint inhibitors. ?? Paraneoplastic syndromes Symptoms of polyarthritis Symptoms may vary for each person, depending on the cause. They may start suddenly, or occur for a few months. Symptoms can include: ?? Joint pain ?? Joint swelling ?? Warmth and redness in the affected area ?? Stiff joints ?? Decreased ability to make certain motions In addition to joint related symptoms, people with certain forms of polyarthritis may also have rashes, sweating unexplained weight loss, fatigue and fever. Diagnosing polyarthritis Polyarthritis can have many possible causes, so making a diagnosis can be difficult. Your healthcare provider will ask about your health history and do a physical exam. They will check to see which joints are affected. And they will check if the joint pain is on both sides of your body (symmetric pain) or only in joints on one side of the body (asymmetrical pain). They will ask you when your symptoms started, and how severe they have been. You may also need one or more tests such as: ?? Complete blood count (CBC). This is done to look for viral infections. ?? Erythrocyte sedimentation rate (ESR) and C-reactive protein (CRP) tests. These can help to differentiate between inflammatory and noninflammatory conditions. ?? Certain blood tests to look for autoimmune disease such as LELAND (antinuclear antibody), RF (rheumatoid factor) and CCP (cyclic citrulinated peptide). ?? Serum uric acid. High uric acid levels may mean you have gout although some people with high uric acid don't have gout. ?? Synovial fluid tests (joint aspiration). A sample of the thick fluid between your joints may be taken and checked in a lab. ?? Imaging tests. An X-ray can provide a detailed look at the bones. A CT scan or MRI can help showdamage to the whole joint. Treatment for polyarthritis The goal of treatment is to reduce inflammation and manage symptoms. Depending on what is causing the polyarthritis, your healthcare provider may advise you to take certain medicines: ?? Acetaminophen can provide pain relief. ?? Nonsteroidal anti-inflammatory drugs (NSAIDs). These medicines can help ease fever and pain, andreduce any swelling and stiffness. They include bnew-qef-qyotdsn medicines such as naproxen and ibuprofen, and prescription medicines. ?? Antibiotics. These can help when the cause is an infection. ?? Corticosteroids. These can ease pain and control inflammation. They also slow down the immune response. They may be taken by mouth (orally) or as a shot (injection). ?? Disease-modifying anti-rheumatic drugs (DMARDs). These medicines help slow down the immune system response for people with certain autoimmune causes of polyarthritis. In addition, a treatment plan may include: ?? Exercise. Low-impact exercise that?s easy on the joints is helpful. This includes swimming, biking, yoga, and walking. ?? Heat or cold therapy. This can help to ease pain. ?? Using a splint or sling. Preventing an affected joint from moving by using a splint or sling canalso help ease pain. Last Reviewed Date: 2021 ?? [id number] [employer]. All rights reserved. This information is not intended as a substitute for professional medical care. Always follow your healthcare professional's instructions. * [facility] - Denis Hudson APRN - 11/08/2023 1:24 PM EDT Images from the original note were not included. [id number] Osteoarthritis Medicine Pain from osteoarthritis can interfere with your life in many ways. It can make it hard to be active and take good care of yourself. Untreated pain may cause sleep problems. It may also add to depression and anxiety. Controlling pain involves life changes like weight management and exercise. Natural and alternativetreatments for pain include the use of heat and cold, massage, and acupuncture. You may also want to try relaxation methods and counseling. Other medicines are available to help ease pain. Ftrn-ycs-lqsykdi medicines Some arthritis medicines can be bought without a prescription: ?? Acetaminophen works for moderate pain and does not cause stomach upset. But it doesn?t ease swelling. You must talk with your healthcare provider before taking it if you have liver or kidney problems. ?? Non-steroidal anti-inflammatory drugs (NSAIDs) help ease pain and swelling. They include ibuprofen and naproxen. The use of NSAIDs can cause stomach and kidney problems as well as an increased risk for stroke and heart attack. It can also raise blood pressure. Don't take NSAIDs if you take medicines that thin your blood, such as warfarin. Talk with your healthcare provider first if you have heart problems or kidney or liver disease. Prescription medicines Some arthritis medicines need a prescription: ?? Prescription NSAIDs are stronger than jqfg-psh-gmiuznr NSAIDs. They reduce pain and swelling. Use of NSAIDs may cause serious stomach problems and easy bruising. They may also lead to heart, kidney, or liver problems. These medicines include nonselective NSAIDs, such as naproxen, diclofenac, and indomethacin. They also include selective NSAIDs, such as meloxicam and celecoxib. Selective NSAIDsare thought to have less of a risk of gastrointestinal side effects than nonselective NSAIDs. ?? Other medicines that may be used are duloxetine, tramadol, and opioids. These may be prescribed for some people based on certain factors. Topical medicines Topical medicines are those put onto the skin over the affected joint. They may be lotions, cream, sprays, ointments, or gels. They can be used along with some medicines: ?? NSAID creams may reduce swelling and ease pain. ?? Capsaicin cream is made from an ingredient found in chili peppers. It works by stopping production of a substance that helps send pain signals to the brain. It may cause a burning or stinging feeling when you first use it. ?? Other topical medicines ease pain by numbing the area where they are used. Intra-articular medicines Some people feel better after getting joint injections. These may be: ?? Corticosteroids used for most joints ?? Hyaluronic acid preparation used for knees If a medicine doesn't work for you, another may help. If you have any questions or concerns about your medicines, talk with your healthcare provider. Last Reviewed Date: 2023 ?? [id number] [employer]. All rights reserved. This information is not intended as a substitute for professional medical care. Always follow your healthcare professional's instructions. * [facility] - Denis Hudson APRN - 11/08/2023 1:24 PM EDT Images from the original note were not included. [id number] Psoriasis Psoriasis is an inflammatory condition that affects the skin and nails. You may have patches of thick, red skin (plaques) covered with silvery scales. These often appear on the elbows, knees, legs, lower back, and scalp. The plaques itch and can be painful. People with this condition are more likely to have emotional stress and depression. Psoriasis is not contagious. It can?t spread to someone else who touches it. But it can be inherited. It's an autoimmune skin disease. This means that the immune system has an abnormal reaction. It treats healthy skin like it is a foreign substance. This causes skin cells to grow faster than normaland to stack up in raised red patches. Psoriasis is a long-term (chronic) disease. You will have flare-ups that come and go over time. Smoking, sun exposure, and alcohol use may affect how often the psoriasis occurs and how long the flare-ups last. There is no cure, but treatments can offer relief. Treatment can include topical creams, light therapy (phototherapy), and oral or injectable medicines. Home care ?? No specific diet is needed. Eat a healthy, well-balanced diet that includes fresh fruits and vegetables, whole grains, and lean meats. Psoriasis can increase your risk for diabetes and heart disease. ?? Increasing omega-3 fatty acids in your diet can help improve dry skin. The best dietary sources are fatty fish (salmon, mackerel, zendejas trout, albacore tuna) or fish oil (such as cod liver oil). A great way to take fish oil is to add it to a juice, shake, or smoothie. Flaxseeds and flaxseed oil, canola oil, walnuts, soybean, and tofu are converted to omega-3 fatty acid in the body. ?? Stay at a healthy weight. Overlapping skin folds can be a site for psoriasis plaques. If you areoverweight, talk to your healthcare provider about a weight- loss program. ?? Bathing daily can help remove scales and calm inflamed skin. Use lukewarm water and mild soaps that have added oils, fats, and moisturizers. Stay away from deodorants, antiperspirants, and antibacterial soaps. These have a drying effect. Many people find it helpful to soak in a tub with added bath oils, oatmeal, apple cider vinegar, or Epsom salts. ?? After bathing, put on skin cream (or a skin oil for a stronger effect). ?? Some exposure to UV rays from the sun can improve psoriasis. But too much sun can trigger an outbreak. It also raises your risk for skin cancer. Limit sun exposure and use sunscreen on healthy skin (at least 30 SPF). ?? If you are prescribed medicine, take it as directed. ?? Unless another steroid cream was prescribed, you may use vtyw-nki-uibzuxr hydrocortisone cream for a few weeks during symptom flare-ups. ?? Stop smoking. If you are a long-time smoker, this can be hard. Think about joining a stop-smoking program. Ask your provider for help. ?? Tell your provider if your joints start to ache or get stiff. ?? Tell your provider if you notice changes in your fingernails. ?? Depression is more common among people with psoriasis. Get help if you notice changes in your mood. Follow-up care Follow up with your healthcare provider, or as advised. When to get medical care Call your healthcare provider right away if any of these occur: ?? Skin pain gets worse ?? Bleeding from the skin plaques that's hard to control ?? Signs of skin infection (redness, increasing pain, swelling, pus) ?? Fever of 100.4?? F (38??C), or higher, or as advised by your provider Last Reviewed Date: 2021 ?? [id number] [employer]. All rights reserved. This information is not intended as a substitute for professional medical care. Always follow your healthcare professional's instructions. * [facility] - Denis Hudson APRN - 11/08/2023 1:24 PM EDT Images from the original note were not included. [id number] Managing Fibromyalgia ([place]) Fibromyalgia is a chronic illness that causes pain in specific points on the body, stiffness, and fatigue. But it doesn?t have to keep you from doing what you enjoy. You can feel better. You and yourhealthcare provider can work together to develop a plan. Take medications as directed You may be given medications to help reduce pain and improve sleep. Several medications are approved to treat fibromyalgia. Two were originally designed to treat depression. They are duloxetine, and milnacipran. A third, called pregaballin, was developed to treat nerve pain. Other medications include pain relievers such as acetaminophen or stronger narcotics. Thesemay be prescribed short term. NSAIDs (non-steroidal anti-inflammatory drugs) include aspirin, ibuprofen and naproxen are used to relieve pain. Get exercise Gentle exercise can help lessen your pain. Try these tips: ?? Choose activities that are gentle on your joints, such as walking, biking, and swimming or otherwater exercises. ?? Don?t push yourself too hard. Build up your strength and endurance slowly, over time. ?? Stick to it. For the most relief, exercise should become part of your daily life. Get a good night?s rest To help you get more sleep, try the tips below: ?? Sleep only in a bed, not on a couch or chair. ?? Don?t watch TV, read, or work in bed. ?? Go to bed and get up at the same time each day. ?? Try to avoid naps. ?? Avoid alcohol, caffeine, and tobacco for at least 3 hours before going to bed. ?? Avoid fluids in the evening to avoid having to get up to urinate. Other things you can do No one knows what causes fibromyalgia. But stress, poor eating habits, and extra weight can make itworse. These tips may help you feel better: ?? Eat a balanced diet with plenty of fruits and vegetables, whole grains, lean protein, and low-fat or nonfat dairy products. ?? Maintain a healthy weight. ?? Learn ways to reduce or manage the stress in your life. ?? Ask your healthcare provider for resources to help you make changes. Or check out the resources below. ?? Plan your activities. Set small goals and divide them over the day. ?? Pace yourself. Do tougher chores early in the day. Resources ?? Arthritis Foundation www.arthritis.org ?? National Fibromyalgia Association www.fmaware.org ?? [place] Fibromyalgia Syndrome Association www.afsafund.org Last Reviewed Date: 2015 ?? [id number] [employer]. [address] [place] [address], [place] [address]. All rights reserved. This information is not intended as a substitute for professional medical care. Always follow your healthcare professional's instructions. * [facility] - Denis Hudson APRN - 11/08/2023 1:24 PM EDT Images from the original note were not included. antinuclear_antibodies Antinuclear Antibody Does this test have other names? LELAND, fluorescent antinuclear antibody test, JUANA What is this test? This blood test is done to help your healthcare provider find out if you have an autoimmune disease. This kind of disease happens when your immune system attacks your normal cells. Your immune system is your body's defense system. It protects you against foreign invaders like viruses and bacteria. In some cases, your immune system can become confused. It can think that normal cells in your body are foreign invaders. When that happens, your body can make proteins called antibodies that attack your own cells. When antibodies attack cells in your body, such as in your joints, they can cause swelling and redness known as inflammation. Antinuclear antibodies attack normal proteins in the center structure (nucleus) of your body's cells. Antinuclear antibodies are found in many autoimmune diseases. These include lupus, scleroderma, and rheumatoid arthritis. Why do I need this test? Your healthcare provider may order this test if you have symptoms of an autoimmune disease. Common symptoms of autoimmune diseases that may stem from antinuclear antibodies include: ?? Fever ?? Joint pain ?? Weight loss ?? Skin rash ?? Tiredness What other tests might I have along with this test? Finding antinuclear antibodies in your blood tells your healthcare provider only that you may have an autoimmune disease. It doesn't tell which disease you have. Your provider may order other tests depending on your symptoms and your physical exam. What do my test results mean? Test results may vary depending on your age, gender, health history, and other things. Your test results may be different depending on the lab used. They may not mean you have a problem. Ask your healthcare provider what your test results mean for you. A positive test for LELAND does not mean you have an autoimmune disease. The test finds small amounts of these antibodies in up to 15% of healthy people. Antinuclear antibodies are measured in titers. Atiter above 1:160 is usually seen as a positive test result. A positive result may mean: ?? You have systemic lupus erythematosus, or SLE. About 95% of people with this autoimmune disease test positive for antinuclear antibodies. ?? You have another type of autoimmune disease. ?? You have a short-term condition, like an infection, that's causing your antinuclear antibodies to go up. ?? You are one of the 15% of normal people who have positive antinuclear antibodies without any disease. How is this test done? The test requires a blood sample, which is drawn through a needle from a vein in your arm. Does this test pose any risks? Taking a blood sample with a needle carries small risks that include bleeding, infection, bruising,and a sense of lightheadedness . When the needle pricks your arm, you may have a slight stinging feeling or pain. Afterward, the site may be a little sore. What might affect my test results? Many conditions can trigger a positive antinuclear antibody test even without an autoimmune disease. Conditions that may cause a false positive test include: ?? Being older than 65 ?? Having cancer ?? Taking certain medicines ?? Having a viral infection ?? Having a long-term infection How do I get ready for this test? You don't need any special preparation for this test. Tell your healthcare provider whether you have had any recent or long-term infections. Also, let your provider know about any medicines you are taking, including vlxb-zlv-ibaqvmp medicines, herbs, and supplements. Last Reviewed Date: 2021 ?? [id number] [employer]. All rights reserved. This information is not intended as a substitute for professional medical care. Always follow your healthcare professional's instructions. * [facility] - Denis Hudson APRN - 11/08/2023 1:24 PM EDT Images from the original note were not included. [id number] Fibromyalgia Fibromyalgia is a chronic condition. It causes pain and tenderness in connective tissues and muscles. Often, there are also many sore areas throughout the body. Symptoms may also include stiffness and feelings of numbness and tingling. Symptoms may be worse when you wake up. They may increase with poor sleep, heavy activity, cold or damp weather, anxiety, or stress. People with fibromyalgia often feel tired. They may have trouble sleeping. Other symptoms include morning stiffness, headaches, and painful menstrual periods. Some people have problems with thinking clearly and changes in memory. The cause of fibromyalgia isn't known. Symptoms are a lot like those of other diseases. These include rheumatoid arthritis, low thyroid, chronic fatigue syndrome, and Lyme disease. In some cases, these diseases may occur together. Fibromyalgia is often treated with medicines. You and your healthcare provider can discuss the medicine that may work best for you. You may have to try more than 1 medicine or combination of medicines before you find what works for you. Home care ?? If your healthcare provider has prescribed or advised medicines, take them as directed. ?? Rest as needed. Try to get enough sleep. If you have trouble sleeping, tell your provider. ?? Be active. Regular exercise can help manage symptoms. Some options include walking, swimming, and biking. Strengthening and aerobic exercises may also be helpful. Talk to your provider about the best ways to be active. ?? Follow a healthy diet. Limit caffeine and alcohol. If you smoke, ask your provider for help to stop. ?? Notice how your body reacts to stress. Learn to listen to your body signals. This will help you take action before the stress becomes severe. ?? Learn relaxation methods. Also consider joining a stress reduction program or class. ?? Talk to your provider about trying complementary treatments. These include acupuncture, hypnosis, and biofeedback. Yoga and anjel chi may be helpful. ?? Ask your provider about cognitive behavioral therapy (CBT). This type of counseling can help people with fibromyalgia cope better with their illness. Follow-up care Follow up with your healthcare provider as advised. In many cases, fibromyalgia is best treated with a team approach. This may include your primary care provider, a double needle operator lockstitch, a physical therapist, and a mental health provider. For more information, visit the National [place] of Arthritis and Musculoskeletal and Skin Diseases (NIAMS) website at www.niams.nih.gov or call 726-915-7041. When to get medical advice Contact your healthcare provider right away if any of these occur: ?? Symptoms get worse or new symptoms develop ?? You feel hopeless, helpless, or lose interest in day-to-day life Last Reviewed Date: 2021 ?? [id number] [employer]. All rights reserved. This information is not intended as a substitute for professional medical care. Always follow your healthcare professional's instructions. * [facility] - Denis Hudson APRN - 11/08/2023 12:30 PM EDT Images from the original note were not included. [facility] Subjective HPI Essence Gonzalez is a 67 y.o. female with PMH significant for diabetes with gastroparesis following with the [facility] at the [facility], hyperlipidemia, hypertension, memory change on donepezil, anxiety type depression seen today for a positive LELAND 1:640 speckled pattern. Other lab work was elevated was an AST as well as an alkaline phosphatase. Has had hand pain for 6 months but progressive. Worse through the night in the evening; worse with significant activity and weight bearing. Feels burning and numbness and tingling. Hip injections have helped. Had foot xray of left with plantar fasciitis. +fatigue. Has tried and failed voltaren and PHYSICAL THERAPY. Joints affected: Hands- swelling in am but denies stiffness L foot- AMS lasting all of the time; worse with activity and weight bearing. Symptoms present for 3 months: X difficulty staying asleep X difficulty falling asleep. + non-restorative sleep. X fatigue. + tight clothes are uncomfortable. Neg pain with light touch. X intermittent brain fog. X Anxiety. Depression. 3-4 of 6 indicate likely FMS Vitals: 11/08/23 1245 BP: (!) 151/80 Pulse: 108 Resp: 18 Temp: 36.7 ??C (98.1 ??F) SpO2: 92% Allergies Allergen Reactions Iain Inhibitors Cough Amlodipine Diarrhea and Other - please document in the comment field Beta Adrenergic Blockers Cough, Rash and Other - please document in the comment field Cyclobenzaprine Other - please document in the comment field and Rash Hydrochlorothiazide Rash Latex Rash Metformin Other - please document in the comment field Penicillins Rash Pioglitazone Itching and Rash Spironolactone Rash Statins Cough Empagliflozin Rash Losartan Rash Losartan Potassium-Hctz Rash Current Outpatient Medications Medication Sig Dispense Refill amoxicillin-clavulanate (Augmentin) 875-125 MG tablet baclofen (Lioresal) 10 MG tablet Take 1 tablet (10 mg) by mouth 3 times a day. bethanechol (Urecholine) 50 MG tablet Take 1 tablet 3 times a day by oral route with meals for 30 days. cefuroxime (Ceftin) 500 MG tablet TAKE 1 [...] desvenlafaxine (Pristiq) 50 MG 24 hr tablet docusate sodium (Colace) 100 MG capsule Take 1 capsule every day by oral route as directed for 30 days. furosemide (Lasix) 20 MG tablet Take 1 tablet (20 mg) by mouth if needed. insulin glargine (Lantus SoloStar) 100 UNIT/ML injection pen insulin lispro (HumaLOG KWIKPEN) 100 UNIT/ML injection pen Inject 16 units every day by subcutaneous route before meals for 30 days. levothyroxine (Synthroid, Levoxyl) 25 MCG tablet Take 1 tablet (25 mcg) by mouth 1 (one) time each day. losartan (Cozaar) 100 MG tablet meloxicam (Mobic) 7.5 MG tablet Take 1 tablet (7.5 mg) by mouth Daily. naloxegol oxalate (Movantik) 25 MG tablet NIFEdipine XL (Procardia XL) 90 MG 24 hr tablet Take 1 tablet (90 mg) by mouth 1 (one) time each day. omeprazole (PriLOSEC) [address] capsule Take 1 capsule every day by oral route as directed for 30 days. Plecanatide (Trulance) 3 MG tablet POTASSIUM PO Take 1 tablet by mouth 1 (one) time each day. rOPINIRole (Requip) 1 MG tablet Take 1 tablet (1 mg) by mouth Daily. topiramate 50 MG tablet Take 1 tablet twice a day by oral route as directed for 30 days. Tradjenta 5 MG tablet Take 1 tablet (5 mg) by mouth 1 (one) time each day. traMADol (Ultram) 50 MG tablet Take 1 tablet every 8 hours by oral route for 30 days. traZODone (Desyrel) 50 MG tablet Take 1 tablet (50 mg) by mouth Daily. No current facility-administered medications for this visit. Review of Systems Constitutional: Positive for fatigue. Negative for chills and fever. Respiratory: Negative for cough, choking and chest tightness. Cardiovascular: Negative for chest pain. Genitourinary: Negative for hematuria. Musculoskeletal: Positive for arthralgias and joint swelling. Skin: Negative for rash. Neurological: Negative for seizures. Initial Rheum ROS Rheumatological ROS positive for facial rash? Chronic sinusitis, dysphagia Family History: FH of autoimmune diseases? No Social History: Exposure to HCV, HBV, HIV or TB. neg hx IV drug use. no hx of tobacco use. no hx of alcohol abuse. no Occupational hx:disabled Physical Exam Vitals reviewed. Constitutional: General: She is not in acute distress. Appearance: Normal appearance. She is not ill-appearing, toxic-appearing or diaphoretic. HENT: Head: Normocephalic and atraumatic. Mouth/Throat: Mouth: Mucous membranes are dry. Eyes: Extraocular Movements: Extraocular movements intact. Conjunctiva/sclera: Conjunctivae normal. Cardiovascular: Rate and Rhythm: Normal rate and regular rhythm. Heart sounds: Normal heart sounds. No murmur heard. Pulmonary: Effort: Pulmonary effort is normal. No respiratory distress. Breath sounds: Rhonchi present. Musculoskeletal: General: Tenderness present. No swelling. Normal range of motion. Cervical back: Normal range of motion. Right lower leg: No edema. Left lower leg: No edema. Comments: Allodynia present to ble Skin: General: Skin is warm and dry. Capillary Refill: Capillary refill takes less than 2 seconds. Coloration: Skin is not jaundiced or pale. Findings: No lesion or rash. Neurological: General: No focal deficit present. Mental Status: She is alert and oriented to person, place, and time. Gait: Gait normal. Psychiatric: Mood and Affect: Mood normal. Behavior: Behavior normal. Thought Content: Thought content normal. Judgment: Judgment normal. The following portions of the chart were reviewed this encounter and updated as appropriate: Patient global assessment: 5/10 Swollen Joint Count: Swollen: 0 Tender Joint Count: Tender: 7 = (x2) CDAI:12 Rapid 3 score: 16.3/30 CDAI Interpretation: 0-2.8 Remission 2.9 -10 Low disease activity 10.1-22.0 Moderate Activity 22.1-76.0 High Activity Assessment and Plan of Care: Plan of care developed with Essence Gonzalez on (11/08/23): 1. Polyarthralgia 67-year-old female presenting today with polyarthralgia primarily of the hands without swelling andwithout morning stiffness but with pain worse with weight- bearing and suspect this is more osteoarthritic in nature. She has tried Voltaren gel as well as physical therapy without much help. Given her positive LELAND do need to rule out lupus as well as rheumatoid arthritis but, in light of her left hip, left knee and left foot issues am concerned more about a psoriatic or seronegative spondyloarthritis as well as her issues with her dip joints on her bilateral hands which could also be secondary to osteoarthritis. Finally, we need to figure out how much of this is contributed to by her fibromyalgia with allodynia present primarily in the lower extremities.. We will hold off any type of inflammatory treatment at the current time as do not suspect it would be beneficial at this point. - cdai 12 - Antinuclear Antibody (LELAND), HEp-2, IgG; Future - Double-Stranded DNA (dsDNA) Antibody, IgG by IFA; Future - C3 Complement; Future - C4 Complement; Future - ENAI; Future - ENAII; Future - Protein, Random, Urine with Creatinine; Future - Rios (DAVE) Antibody, IgG; Future - Thyroid Peroxidase Antibody; Future - C-Reactive Protein, Plasma; Future - Sedimentation Rate, Automated; Future - XR Hand and Wrist Bilateral 2 Views; Future - Cyclic Citrul Peptide Antibody IgG; Future - Rheumatoid Factor, Plasma; Future - Acute Hepatitis Panel; Future - XR Hip Left 2 or 3 Views; Future - XR Foot Left 3+ Views; Future - HLA B27 Typing; Future 2. Fibromyalgia Fibromyalgia is a chronic non-inflammatory, non-autoimmune central afferent processing disorder leading to diffuse pain syndrome including widespread musculoskeletal pain leading to chronic pain, fatigue, sleep disturbance, cognitive disturbance and psychiatric symptoms. - Pharmacologic options include gabapentin, amitriptyline, or duloxetine. Discussed with patient todiscuss these options with her PCP. - Non-Pharmacologic options includes exercise program that consist of aerobic conditions, stretching and strengthening. PT, aquatic PT, cognitive behavior therapy, proper sleep hygiene and rest. - Encouraged consistent sleep routine, daily low impact exercise, healthy diet, and healthy weight. - Defer management to PCP Suggestions for PCP regarding medications which may be tried for fibromyalgia: --Duloxetine (Cymbalta): start 20 to 30 mg in the morning with food. Titrate monthly to 60 mg/day or effect --Milnacipran (Savella): start 12.5 mg in the morning with food. Increase by 12.5 mg every 3 to 7 days to effect. Typical dose: 50 mg twice a day (doses of 100 mg BID have been described). --Pregabalin (Lyrica): start 50 mg with food before bed. After 1 week, increase to 50 mg BID and titrate dose to effect. Typical dose: 75 to 150 mg BID (max dose 225 mg BID). --Venlaxafine start at 37.5 mg in the morning with food and increase weekly to effect or max dose of 375 mg daily (typical dosin-150 mg BID). There is an extended release form that can be used once a day starting at 37.5 mg and titrated weekly to effect or max dose of 225 mg daily. --Amitriptyline at a dosage of 10 to 25 mg 1 to 3 hours prior to bedtime. This dose may be increased by 10 to 25 mg increments at 2-week intervals; the usual effective dose is 25 to 100 mg daily. --Cyclobenzaprine 5 to 10 mg at bedtime, max daily dose of 30 mg. --Gabapentin start at 100 to 300 mg QHS. If 300 mg QHS is tolerated, a morning dose can be added and titrated to effect. Typical dosin to 600 mg TID (maximum dose 1200 mg TID). 3. Adventitious breath sounds Start albuterol RTC prn Patient is agreeable to the above treatment plan and had no further questions. Thanks for the opportunity to participate in the care of this patient! If there are any questions or concerns, please reach out to me personally. Thanks! Denis Hudson APRN Parts of this note were dictated using [employer]ee[employer] Direct voice recognition software. As a result, errors may occur. When identified, these criminal justice teacher errors are corrected, but while every attempt is made to prevent/correct these, errors may still exist. Time Spent: I personally spent a total of minutes on this encounter. This time includes face to face with patient, counseling and discussion and/or coordination of care. minutes on the encounter. Thepatient was counseled about diagnostic results, instruction for management, risk factors reduction, prognosis, compliance with visits and treatment, risks and benefits of treatments options. Prior notes (by external physicians) and results were reviewed by me with independent interpretation of labsand imaging. My note will be sent to PCP and other consulting physicians. Note to patient: The Century Cures Act makes medical notes like these available to patients inthe interest of transparency. However, be advised this is a medical document. It is intended as peer to peer communication. It is written in medical language and may contain abbreviations or verbiagethat are unfamiliar. It may appear blunt or direct. Medical documents are intended to carry relevant information, facts as evident, and the clinical opinion of the practitioner. CLINICAL INDICATION: inflam arthropathy TECHNIQUE: XR HIP LEFT 2 OR 3 VIEWS, XR HAND WRIST BILATERAL 2 VIEWS, XR FOOT LEFT 3+ VIEWS COMPARISON: None. FINDINGS: Diffuse osteopenia, which limits evaluation of nondisplaced fractures. 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 Suav-oc-opkyjyoh osteoarthritis in the STT joint bilaterally. No acute displaced fracture or dislocations. No bone erosions. Left hip: Overlying soft tissue limits evaluation of the hip. Zkkx-aj-dqrmjanq suggest the hip. No acute displaced fractures or dislocations. Left foot: Zkad-fk-zjfsrwla osteoarthritis in the first MTP joint. No acute displaced fractures or dislocations. No evidence of bone erosions. There are superior and plantar calcaneal enthesophytes. Mild and diffuse soft tissue swelling. IMPRESSION: Degenerative changes as above described. No evidence of bone erosions documented in this encounter Plan of Treatment Not on file documented as of this encounter Results * Protein, Random, Urine with Creatinine (11/08/2023 2:21 PM EDT) Protein, Urine 42 mg/dL 11/08/2023 4:11 PM EDT [facility] Creatinine, Urine 254 mg/dL 11/08/2023 4:11 PM EDT [facility] Protein/Creati nine Ratio 0.2 mg/mg Creat 11/08/2023 4:11 PM EDT [facility] Urine Urine specimen obtained by clean catch procedure / Unknown Non-blood Collection / Unknown 11/08/2023 2:21 PM EDT 11/08/2023 2:21 PM EDT Denis Hudson APRN LAB URINE ORDERABLES Final Res ult [facility] [address] [place] [address] * XR Foot Left 3+ Views (11/08/2023 [...] and second through fifth DIP joints bilaterally. Tcni-yn-etjshvas osteoarthritis in the STT joint bilaterally. No acute displaced fracture or dislocations. No bone erosions. Left hip: Overlying soft tissue limits evaluation of the hip. Nwio-hj-edbyfjfa suggest the hip. No acute displaced fractures or dislocations. Left foot: Ivlv-wx-uwluskol osteoarthritis in the first MTP joint. No [...] CMC and second through fifth DIPjoints bilaterally. Ojhv-mp-fnocbrtb osteoarthritis in the STT joint bilaterally. No acute displaced fracture or dislocations. No bone erosions. Left hip: Overlying soft tissue limits evaluation of the hip. Xshd-cj-jpcirygh suggest the hip. No acute displaced fractures or dislocations. Left foot: Wsxz-vi-qykablej osteoarthritis in the first MTP joint. No [...] and second through fifth DIP joints bilaterally. Vgdp-sa-mzczhyjo osteoarthritis in the STT joint bilaterally. No acute displaced fracture or dislocations. No bone erosions. Left hip: Overlying soft tissue limits evaluation of the hip. Cbph-ao-mxcdsxmc suggest the hip. No acute displaced fractures or dislocations. Left foot: Hvox-tp-llvsctaj osteoarthritis in the first MTP joint. No [...] CMC and second through fifth DIPjoints bilaterally. Rkjc-my-xflcehmu osteoarthritis in the STT joint bilaterally. No acute displaced fracture or dislocations. No bone erosions. Left hip: Overlying soft tissue limits evaluation of the hip. Jtwq-gj-dhtwerpn suggest the hip. No acute displaced fractures or dislocations. Left foot: Oedu-af-xodqcjvz osteoarthritis in the first MTP joint. No [...] Andrea Denise MD on 42:57 PM Denis W Biery [facility] IMG XR PROCEDURES Final Result * XR [...] and second through fifth DIP joints bilaterally. Rtfb-lv-ttcvgxei osteoarthritis in the STT joint bilaterally. No acute displaced fracture or dislocations. No bone erosions. Left hip: Overlying soft tissue limits evaluation of the hip. Hvtj-jc-wqylwrmv suggest the hip. No acute displaced fractures or dislocations. Left foot: Jiwb-jc-xddolhzq osteoarthritis in the first MTP joint. No [...] CMC and second through fifth DIPjoints bilaterally. Vifa-en-qyuyfcqo osteoarthritis in the STT joint bilaterally. No acute displaced fracture or dislocations. No bone erosions. Left hip: Overlying soft tissue limits evaluation of the hip. Uact-yg-dybkasup suggest the hip. No acute displaced fractures or dislocations. Left foot: Yyzm-es-qfwlbyfn osteoarthritis in the first MTP joint. No [...] Denise MD on 42:57 PM Denis Hudson [facility] IMG XR PROCEDURES Final Result * HLA B27 Typing (11/08/2023 1:57 PM EDT) Blood Venous blood specimen / Unknown Venipuncture / Unknown 11/08/2023 1:57 PM EDT 11/08/2023 2:01 PM EDT Denis Hudson CHUCK [facility]ONER LAB BLOOD ORDERABLES Final Res ult Performing Organization Address [facility] de Phone Number [facility] [address] [place] [address] * Acute Hepatitis Panel (11/08/2023 1:57 PM EDT) Hepatitis B Surf Antigen Negative Negative 11/08/2023 4:13 PM EDT [facility] Hepatitis C Antibody Negative Negative 11/08/2023 4:13 PM EDT [facility] Hepatitis A Antibody IgM Negative Negative 11/08/2023 4:13 PM EDT [facility] Hepatitis B Core Antibody IgM Negative Negative 11/08/2023 4:13 PM EDT [facility] Blood Venous blood specimen / Unknown Venipuncture / Unknown 11/08/2023 1:57 PM EDT 11/08/2023 2:01 PM EDT Denis Hudson APRN LAB BLOOD ORDERABLES Final Res ult Performing Organization Address [facility] Co de Phone Number [facility] [address] [place] [address] * Rheumatoid Factor, Plasma (11/08/2023 1:57 PM EDT) Rheumatoid Factor, Plasma 11 <14 IU/mL 11/08/2023 3:53 PM EDT [facility] Blood Venous blood specimen / Unknown Venipuncture / Unknown 11/08/2023 1:57 PM EDT 11/08/2023 2:01 PM EDT Denis Hudson CHUCK BONER LAB BLOOD ORDERABLES Final Res ult Performing Organization Address City/[facility]/ZIP Co de Phone Number [facility] [address] [place] [address] * Cyclic Citrul Peptide Antibody IgG (11/08/2023 1:57 PM EDT) [facility] Cyclic Citrul Peptide Antibody IgG <5.0 <=5.0 U/mL 11/08/2023 4:47 PM EDT [facility] Blood Venous blood specimen / Unknown Venipuncture / Unknown 11/08/2023 1:57 PM EDT 11/08/2023 2:01 PM EDT Denis Maurobrenda CHUCK BONER LAB BLOOD ORDERABLES Final Res ult Performing Organization Address City/[facility] Co de Phone Number [facility] [address] [place] [address] * (ABNORMAL) Sedimentation Rate, Automated (11/08/2023 1:57 PM EDT) [facility] Sedimentation Rate 49(H) <30 mm/hr 2023 3:09 PM EDT [facility] Blood Venous blood specimen / Unknown Venipuncture / Unknown 11/08/2023 1:57 PM EDT 11/08/2023 2:01 PM EDT Denis Hudson APRN LAB BLOOD ORDERABLES Final Res ult Performing Organization Address City/[facility] Co de Phone Number [facility] [address] [place] [address] * (ABNORMAL) C-Reactive Protein, Plasma (11/08/2023 1:57 PM EDT) Pathologist [facility] CRP, Plasma 9.5(H) <=8.0 mg/L 11/08/2023 3:53 PM EDT [facility] Blood Venous blood specimen / Unknown Venipuncture / Unknown 11/08/2023 1:57 PM EDT 11/08/2023 2:01 PM EDT Narrative [facility] - 11/08/2023 3:53 PM EDT This CRP test is appropriate for assessment of infection, systemic inflammation and/or tissue injury. To assess cardiovascular disease risk order high sensitivity CRP (CRPH). Denis Hamlin Tristan [facility] LAB BLOOD ORDERABLES Final Res ult Performing Organization Address [facility] Co de Phone Number [facility] [address] [place] [address] * Thyroid Peroxidase Antibody (11/08/2023 1:57 PM EDT) [facility] Thyroid Peroxidase Antibody <5 <=8 IU/mL 11/08/2023 4:39 PM EDT [facility] Blood Venous blood specimen / Unknown Venipuncture / Unknown 11/08/2023 1:57 PM EDT 11/08/2023 2:01 PM EDT Denis Hudson CHUCK BONER LAB BLOOD ORDERABLES Final Res ult Performing Organization Address City/[facility] Co de Phone Number [facility] [address] [place] [address] * Rios (DAVE) Antibody, IgG (11/08/2023 1:57 PM EDT) Pathologist [facility] Rios (DAVE) Antibody, IgG 2 0 - 40 AU/mL 11/10/2023 12:02 PM EDT [facility] ([facility]) Serum 11/08/2023 1:57 PM EDT 11/08/2023 2:01 PM EDT Narrative [facility] ([facility]) - 11/10/2023 12:02 PM EDT INTERPRETIVE INFORMATION: Rios (DAVE) Antibody, IgG ??29 AU/mL or Less ............. Negative ??30 - 40 AU/mL ................ Equivocal ??41 AU/mL or Greater .......... Positive Rios antibody is highly specific (greater than 90 percent) for systemic lupus erythematosus (SLE) but only occurs in 30-35 percent of SLE cases. The presence of antibodies to Rios has variable associations with SLE clinical manifestations. Performed By: [email or web address] [address] [place] [address] Terrazzo Mechanic: Diogenes Holland MD, PhD CLIA Number: [id number] Denis Yakelin Tristan [facility] LAB BLOOD AND FLUID OR D Final Result [facility] (ad[facility]) [address] [place] [address] * ENAII (11/08/2023 1:57 PM EDT) SSA-52 (RO52) (DAVE) Antibody, IgG 4 0 - 40 AU/mL 11/10/2023 12:02 PM EDT [facility] (ad[facility]) SSA-60 (RO60) (DAVE) Antibody, IgG 0 0 - 40 AU/mL 11/10/2023 12:02 PM EDT [facility] [employer] ([facility]) SSB (LA) (DAVE) Antibody, IgG 1 0 - 40 AU/mL 11/10/2023 12:02 PM EDT [facility] [employer] ([facility]) Blood Venous blood specimen / Unknown Venipuncture / Unknown 11/08/2023 1:57 PM EDT 11/08/2023 2:01 PM EDT Narrative [facility] ([facility]) - 11/10/2023 12:02 PM EDT INTERPRETIVE INFORMATION: SSA-52 (Ro52) (DAVE) Antibody, IgG ??29 AU/mL or Less ............. Negative ??30 - 40 AU/mL ................ Equivocal ??41 AU/mL or Greater .......... Positive SSA-52 (Ro52) and/or SSA-60 (Ro60) antibodies are associated with a diagnosis of Sjogren syndrome, systemic lupus erythematosus (SLE), and systemic sclerosis. SSA-52 antibody overlaps significantly with the major SSc-related antibodies. SSA-52 (Ro52) antibody occurs frequently in patients with inflammatory myopathies, often in the presence of interstitial lung disease. REFERENCE INTERVAL: SSA-60 (Ro60) (DAVE) Antibody, IgG ??29 AU/mL or Less ............. Negative ??30 - 40 AU/mL ................ Equivocal ??41 AU/mL or Greater .......... Positive INTERPRETIVE INFORMATION: SSB (La) (DAVE) Ab, IgG ??29 AU/mL or Less ............. Negative ??30 - 40 AU/mL ................ Equivocal ??41 AU/mL or Greater .......... Positive SSB (La) antibody is seen in 50-60% of Sjogren syndrome cases and is specific if it is the only DAVE antibody present. 15-25% of patients with systemic lupus erythematosus (SLE) and 5-10% of patients with progressive systemic sclerosis (PSS) also have this antibody. Performed By: [email or web address] [address] [place] [address] Terrazzo Mechanic: Diogenes Holland MD, PhD CLIA Number: [id number] Denis Hudson APRN LAB BLOOD ORDERABLES Final Res ult [facility] [employer] (ad[facility]) [address] [place], [place] [id number] * ENAI (11/08/2023 1:57 PM EDT) Rios/ACID REMOVER (DAVE) Ab, IgG 1 0 - 19 Units 11/10/2023 1:14 PM EDT [facility] [employer] ([facility]) Blood Venous blood specimen / Unknown Venipuncture / Unknown 11/08/2023 1:57 PM EDT 11/08/2023 2:01 PM EDT Narrative [facility]) - 11/10/2023 1:14 PM EDT INTERPRETIVE INFORMATION: Rios/ACID REMOVER (DAVE) Antibody, IgG ??19 Units or Less ............. Negative ??20 to 39 Units ............... Weak Positive ??40 to 80 Units ............... Moderate Positive ??81 Units or greater .......... Strong Positive Rios/ACID REMOVER antibodies are frequently seen in patients with mixed connective tissue disease (MCTD) and are also associated with other systemic autoimmune rheumatic diseases (SARDs) such as systemic lupus erythematosus (SLE), systemic sclerosis, and myositis. Antibodies targeting the Rios/ACID REMOVER antigenic complex also recognize Rios antigens, therefore, the Rios antibody response must be considered when interpreting these results. Performed By: [email or web address] [address] [place] [id number] [employer]razzo Mechanic: Diogenes Holland MD, PhD CLIA Number: [id number] Denis Hamlin [employer] [facility] LAB BLOOD ORDERABLES Final Res ult Performing Organization Address City/[facility] Co de Phone Number [facility] ([facility]IER) [address] [place] [address] * C4 Complement (11/08/2023 1:57 PM EDT) C4 Complement 24 13 - 36 mg/dL 11/08/2023 3:52 PM EDT [facility] Blood Venous blood specimen / Unknown Venipuncture / Unknown 11/08/2023 1:57 PM EDT 11/08/2023 2:01 PM EDT Denis Yakelin [employer] [facility] LAB BLOOD ORDERABLES Final Res ult [facility] [address] [place] [address] * (ABNORMAL) C3 Complement (11/08/2023 1:57 PM EDT) C3 Complement 203(H) 84 - 166 mg/dL 11/08/2023 3:52 PM EDT [facility] Blood Venous blood specimen / Unknown Venipuncture / Unknown 11/08/2023 1:57 PM EDT 11/08/2023 2:01 PM EDT Denis Hudson APRN LAB BLOOD ORDERABLES Final Res ult [facility] [address] [place] [address] * Double-Stranded DNA (dsDNA) Antibody, IgG by IFA (11/08/2023 1:57 PM EDT) Pathologist [facility] Double-Strande d DNA (dsDNA) Ab IgG IFA <1:10 <1:10 11/10/2023 1:52 PM EDT [facility] ([facility]) Blood Venous blood specimen / Unknown Venipuncture / Unknown 11/08/2023 1:57 PM EDT 11/08/2023 2:01 PM EDT Narrative [facility] ([facility]) - 11/10/2023 1:52 PM EDT INTERPRETIVE INFORMATION: Double-Stranded DNA (dsDNA) Antibody, IgG by IFA (using Crithidia luciliae) Positivity for anti-double stranded DNA (anti-dsDNA) IgG antibody is a diagnostic criterion of systemic lupus erythematosus (SLE). The presence of the anti-dsDNA IgG antibody is identified by IFA titer (Crithidia luciliae indirect fluorescent test [HORACIO]). HORACIO is highly specific for SLE with a sensitivity of 50-60 percent. Some patients with early or inactive SLE may be positive for anti-dsDNA IgG by SANJANA but negative by HORACIO. If the HORACIO result is negative but the patient has a positive SANJANA and clinical suspicion remains, consider antinuclear antibody (LELAND) testing by IFA. Additional information and recommendations for testing may be found at [email or web address]. Performed By: [email or web address] [address] [place] [id number] Terrazzo Mechanic: Diogenes Holland MD, PhD CLIA Number: [id number] Denis Hudson APRN LAB BLOOD ORDERABLES Final Res ult Performing Organization Address City/[facility]/ZIP Co de Phone Number [facility] (adFreeq) [address] [place] [address] * (ABNORMAL) Antinuclear Antibody (LELAND), HEp-2, IgG (11/08/2023 1:57 PM EDT) LEALND INTERPRETIVE COMMENT See Note 11/10/2023 10:26 AM EDT [facility] (adFreeq) Anti Nuc Ab Screen Detected( H) <1:80 11/10/2023 10:26 AM EDT [facility] (adFreeq) Blood Venous blood specimen / Unknown Venipuncture / Unknown 11/08/2023 1:57 PM EDT 11/08/2023 2:01 PM EDT Narrative [facility] (adFreeq) - 11/10/2023 10:26 AM EDT Speckled Pattern Clinical associations: SLE, SSc, SjS, DM, PM, MCTD, UCTD. May also be found in healthy individuals Main autoantibodies: Anti-SSA-52 (Ro52), anti-SSA-60 (Ro60), anti-SS-B/LA, anti-Antonio-1 (anti-Scl-70), Rios, anti-U1-ACID REMOVER, anti-U2-ACID REMOVER, anti-Mi-2, anti-p155/140 (TIF1g), anti-Ku, anti-RNA polymerase, anti-DFS70/LEDGF-P75 List of Abbreviations Antisynthetase syndrome (ARS), chronic active hepatitis (CAH), ?? inflammatory ??myopathies (IM) [dermatomyositis (DM), polymyositis (PM), necrotizing autoimmune myopathy (NAM)], interstitial lung disease (ILD), juvenile idiopathic arthritis (SLOANE), mixed connective tissue disease (MCTD), primary biliary cholangitis (PBC), rheumatoid arthritis (RA), systemic autoimmune rheumatic diseases (SARD), Sjogren syndrome (SjS), systemic lupus erythematosus (SLE), systemic sclerosis (SSc), undifferentiated connective tissue disease (UCTD). INTERPRETIVE INFORMATION: LELAND Interpretive Comment Presence of antinuclear antibodies (LELAND) is a hallmark feature of systemic autoimmune rheumatic diseases (SARD). However, LELAND lacks diagnostic specificity and is associated with a variety of diseases (cancers, autoimmune, infectious, and inflammatory conditions) ??and may also occur in healthy individuals in varying prevalence. The lack of diagnostic specificity requires confirmation of positive LELAND by more specific serologic tests. LELAND (nuclear reactivity) positive patterns reported include centromere, homogeneous, nuclear dots, nucleolar, or speckled. LELAND (cytoplasmic reactivity) positive patterns reported include reticular/AMA, discrete/GW body-like, polar/golgi-like, cytoplasmic speckled or rods and rings. All positive patterns are reported to endpoint titers (1:2560). Reported patterns may help guide differential diagnosis, although they may not be specific for individual antibodies or diseases. Mitotic staining patterns not reported. ??Negative results do not necessarily rule out SARD. Performed By: [email or web address] [address] [place] [address] Terrazzo Mechanic: Diogenes Holland MD, PhD CLIA Number: [id number] Denis Hudson APRN LAB BLOOD ORDERABLES Final Res ult [facility] (ANASTASI[facility]KER) [address] [place] [address] documented in this encounter Visit Diagnoses Diagnosis Polyarthralgia- Primary Pain in joint, multiple sites Fibromyalgia Unspecified myalgia and myositis Adventitious breath sounds Polyarthralgia Pain in joint, multiple sites documented in this encounter Additional Health Concerns Assessment Noted Time A fall risk assessment has been complete d for the patient 11/08/2023 12:47 PM EDT A Body Mass Index follow-up plan has been documented for the patient 11/08/2023 1:35 PM EDT documented as of this encounter Care Teams Office Inspector Relationship Specialty Start Date End Date Ev Augustin [address] [place] [address] PCP - General 08/13/20 documented as of this encounter
--- OUTSIDE RECORDS SUMMARY | 2024-02-20 09:19 | XMS_ITS | Encounter Summary ---
Author Organization [facility] Address [address] [place] [address] Care Team Providers Care Search Engine Optimization Consultant Name Role Phone Ev Augustin Primary Care Provider [phone] Encounter Details Date Type Department Care Team (Latest Contact Info) Description 11/08/2023 Travel Social History Tobacco Use Types Packs/Day Years [...] on file documented as of this encounter Visit Diagnoses Not on filedocumented in this encounter Additional Health Concerns Assessment Noted Time A fall risk assessment has been complete d for the patient 11/08/2023 12:47 PM EDT A Body Mass Index follow-up plan has been documented for the patient 11/08/2023 1:35 PM EDT documented as of this encounter Care Teams Search Engine Optimization Consultant Relationship Specialty Start Date End Date Ev Augustin [address] [place] [address] PCP - General 08/13/20 documented as of this encounter
--- OUTSIDE RECORDS SUMMARY | 2024-02-20 09:19 | XMS_ITS | Encounter Summary ---
Author Organization [facility] Address [address] [place] [address] Care Team Providers Care Drawing In Machine Tender Helper Name Role Phone Deepak Cortez MD Primary Care Provider Unav ailable Encounter Details Date Type Department Care Team (Late st Contact Info) Description 01/14/2013 Telephone Converted [facility] HISTORICAL CONV [address] [place] [address] Provider, MD Aiyana [address] [place] [address] Social History Tobacco Use Types Packs/Day Years Used Date Smoking Tobacco: Never Assessed Comments Unknown Sex and Gender Information Value Date Recorded Sex Assigned at Not on file Legal Sex Female 10:25 AM EDT Gender Identity Not on file Sexual Orientation Not on file documented as of this encounter Miscellaneous Notes * Telephone Encounter - Bebeto Adams - 01/14/2013 4:32 PM EDT Message LVM for pt to follow discharge plan as directed and to call back if any problems. Signatures Electronically signed by : Irena Lynne MA; Jan 14 2013 4:33PM (Author) documented in this encounter Plan of Treatment Upcoming Encounters Date Type Department Care Team (Late st Contact Info) Description 03/13/2024 2:45 PM EST Office Visit [facility] CARDIOLOGY [address] [place] [address] [place] [address] Pj Ace MD [address] [place] [address] documented as of this encounter Visit Diagnoses Not on filedocumented in this encounter Care Teams Drawing In Machine Tender Helper Relationship Specialty Start Date End Date Deepak Cortez MD PCP - General 12/31/14 12/12/16 documented as of this encounter
--- OUTSIDE RECORDS SUMMARY | 2024-02-20 09:19 | XMS_ITS | Encounter Summary ---
Author Organization [facility] yste Address [address] [place] [address] Care Team Providers Care Pediatric Registered Nurse Name Role Phone Provider, No Known Primary Care Provider Unavail able Encounter Details Date Type Department Care Team (Late st Contact Info) Description 04/29/2013 Conversion Encounter [facility] PAIN MANAGEMENT [address] [facility] [address] [place] [address] Bebeto Adams MD [address] [facility] [address] [place] [address] Social History Tobacco Use Types Packs/Day Years [...] CENTER CARDIOLOGY [address] [place] [address] Pj Ace MD [address] [facility] [address] [place] [address] documented as of this encounter Procedures Procedure Name Priority Date/Time Associated Diagnosis Comments APTT Routine 04/29/2013 4:23 PM EST PROTIME-INR Routine 04/29/2013 4:23 PM EST CBC AND DIFFERENTIAL Routine 04/29/2013 4:23 PM EST documented in this encounter Results * APTT (04/29/2013 4:23 PM EST) PTT 27 24 - 31 Seconds [facility] Comment: US by IF @ 04/29/2013 17:43 PTT = The equivalent PTT values for the therapeutic range of heparin levels at 0.3 to 0.5 U/ml are 45 to 60 seconds. PTT = The equivalent PTT values for the therapeutic range of heparin levels at 0.3 to 0.5 U/ml are 45 to 60 seconds. Blood specimen (specimen) 04/29/2013 4:23 PM EST Narrative [facility] - 04/29/2013 5:43 PM EST Specimen Type: Blood Bebeto Adams MD LAB BLOOD ORDERABLES Final Re sult [facility] [address] [place] [address], * Protime-INR (04/29/2013 4:23 PM EST) Protime 10.9 9.6 - 11.5 Seconds [facility] INR 1.02 [facility] Comment: US by IF @ 04/29/2013 17:43 Therapeutic Ranges for INR: 2.0-3.0 (PT 20-30) ?2.5-3.5 (PT 25-34) Blood specimen (specimen) 04/29/2013 4:23 PM EST Narrative [facility] - 04/29/2013 5:43 PM EST Specimen Type: Blood us Bebeto Adams MD LAB BLOOD ORDERABLES Final Re sult [facility] [address] [id number], * CBC and Differential (04/29/2013 4:23 PM EST) WBC 6.95 3.50 - 10.80 [facility] RBC 4.87 3.89 - 5.14 /[facility] Hemoglobin 14.4 11.5 - 15.5 g/dL [facility] Hematocrit 43.2 34.5 - 44.0 % [facility] MCV 88.7 80.0 - 99.0 fL [facility] MCH 29.6 27.0 - 31.0 pg [facility] MCHC 33.3 32.0 - 36.0 g/dL [facility] RDW-CV 13.2 11.3 - 14.5 % [facility] Platelets 279 150 - 450 [facility] Neutrophils Absolute 4.20 1.50 - 8.30 [facility] Lymphocytes Absolute 2.13 0.60 - 4.80 [facility] Monocytes Absolute 0.42 0.00 - 1.00 [facility] Eosinophils Absolute 0.13 0.10 - 0.30 [facility] Basophils Absolute 0.06 0.00 - 0.20 [facility] Neutrophil Rel % 60.5 41.0 - 71.0 % [facility] Lymphocyte Rel % 30.6 24.0 - 44.0 % [facility] Monocyte Rel % 6.0 0.0 - 12.0 % [facility] Eosinophil Rel % 1.9 0.0 - 3.0 % [facility] Basophil Rel % 0.9 0.0 - 1.0 % [facility] Immature Granulocyte Rel % 0.1 0.0 - 0.6 % [facility] Blood specimen (specimen) 04/29/2013 4:23 PM EST Narrative [facility] - 04/29/2013 7:26 PM EST Specimen Type: Blood Bebeto Adams MD LAB BLOOD ORDERABLES Final Re sult [facility] [address] [place] [address], documented in this encounter Visit Diagnoses Not on filedocumented in this encounter Care Teams Pediatric Registered Nurse Relationship Specialty Start Date End Date Provider, No Known [facility] [place] [address] PCP - General 12/21/14 12/29/14 documented as of this encounter
--- OUTSIDE RECORDS SUMMARY | 2024-02-20 09:19 | XMS_ITS | Clinical Summary ---
Author Organization [facility] Address [address] [place], [place] [address] Care Team Providers Care Mixing Machine Attendant Name Role Phone Unavailable Primary Care Provider Unavailabl e Social History Tobacco Use Types Packs/Day Years Used Date Smoking Tobacco: Never Assessed Comments Unknown Sex and Gender Information Value Date Recorded Sex Assigned at Not on file Legal Sex Female 6:01 PM CDT Gender Identity Not on file Sexual Orientation Not on file Plan of Treatment Not on file
--- OUTSIDE RECORDS SUMMARY | 2024-02-20 09:19 | XMS_ITS | Encounter Summary ---
[facility] Address [address] [place] [address] Care Team Providers Care Packing Machine Feeder Name Role Phone Deepak Cortez MD Primary Care Provider Unav ailable Encounter Details Date Type Department Care Team (Late st Contact Info) Description 11/21/2012 Office Visit Converted [facility]GEMENT [address] [address] Bebeto Adams MD [address] [facility] [address] [place] [address] Social History Tobacco Use Types Packs/Day Years Used Date Smoking Tobacco: Never Assessed Comments Unknown Sex and Gender Information Value Date Recorded Sex Assigned at Not on file Legal Sex Female 10:25 AM EDT Gender Identity Not on file Sexual Orientation Not on file documented as of this encounter Last Filed Vital Signs Vital Sign Reading Time Taken Comments Blood Pressure 120/74 11/21/2012 7:50 AM EDT Pulse 96 11/21/2012 7:50 AM EDT Temperature 36.4 ??C (97.6 ??F) 11/21/2012 7:50 AM ED T Respiratory Rate - - Oxygen Saturation 96% 11/21/2012 7:50 AM EDT Inhaled Oxygen Concentration - - Weight 89 kg (196 lb 4.1 oz) 11/21/2012 7:50 AM EDT Height 157.5 cm (5' 2 ) 11/21/2012 7:50 AM EDT Body Mass Index 35.9 11/21/2012 7:50 AM EDT documented in this encounter Plan of Treatment Upcoming Encounters Date Type Department Care Team (Late st Contact Info) Description 03/13/2024 2:45 PM EST Office Visit [facility] CARDIOLOGY [address] [place] [address] [address] Pj Ace MD [address] [facility] [address] [place] [address] documented as of this encounter Visit Diagnoses Not on filedocumented in this encounter Care Teams Packing Machine Feeder Relationship Specialty Start Date End Date Deepak Cortez MD PCP - General 12/31/14 12/12/16 documented as of this encounter
--- OUTSIDE RECORDS SUMMARY | 2024-02-20 09:19 | XMS_ITS | Encounter Summary ---
Author Organization [facility] yste Address [address] [place] [address] Care Team Providers Care Patternmaker Plaster Name Role Phone Deepak Cortez MD Primary Care Provider Unav ailable Encounter Details Date Type Department Care Team (Late st Contact Info) Description 12/12/2012 Telephone Converted [facility] HISTORICAL CONV [address] [place] [address] Provider, MD Aiyana [address] [place] [address] Social History Tobacco Use Types Packs/Day Years Used Date Smoking Tobacco: Never Assessed Comments Unknown Sex and Gender Information Value Date Recorded Sex Assigned at Not on file Legal Sex Female 10:25 AM EDT Gender Identity Not on file Sexual Orientation Not on file documented as of this encounter Miscellaneous Notes * Telephone Encounter - Bebeto Adams - 12/12/2012 3:28 PM EDT Message LVM For pt to call back if any questions about yesterday's procedure. Follow discharge plan as directed. Signatures Electronically signed by : Irena Lynne MA; Dec 12 2012 3:29PM (Author) documented in this encounter Plan of Treatment Upcoming Encounters Date Type Department Care Team (Late st Contact Info) Description 03/13/2024 2:45 PM EST Office Visit [facility] CARDIOLOGY [address] [place] [address] Pj Ace MD [address] [place] [address] documented as of this encounter Visit Diagnoses Not on filedocumented in this encounter Care Teams Patternmaker Plaster Relationship Specialty Start Date End Date Deepak Cortez MD PCP - General 12/31/14 12/12/16 documented as of this encounter
--- OUTSIDE RECORDS SUMMARY | 2024-02-20 09:19 | XMS_ITS | Encounter Summary ---
[facility] [address] [place] [address] Care Team Providers Care Ward Clerk Name Role Phone Provider, No Known Primary Care Provider Unavail able Encounter Details Date Type Department Care Team (Late st Contact Info) Description 01/09/2005 Conversion Encounter [facility] HISTORICAL CONV [address] [place] [address] Interface, See Report Social History [...] Office Visit [facility] CARDIOLOGY [address] [place] [address] [place] [address] Pj Ace MD [address] [facility] [address] [place] [address] documented as of this encounter Procedures Procedure Name Priority Date/Time Associated Diagnosis Comments CONVERTED (HISTORICAL) SURGICAL PATHOLOGY Routine 01/09/2005 10:17 AM EDT documented in this encounter Results * Converted Surgical Pathology (01/09/2005 10:17 AM EDT) 01/09/2005 10:1 7 AM EDT [facility]ORY - 01/10/2005 1:30 PM EDT [facility] SURGICAL PATHOLOGY REPORT Patient Name: GERTRUDIS JACOBSON MR#: [id number] : 1955 Gender: F Ordering Physician: TRAE TOLENTINO Copy To: Location: [address] [place] [address] Collected: 01/09/2005 Received: 01/09/2005 Reported: 01/10/2005 Clinical Diagnosis and History The working history is left lumbar sacral radiculopathy. Final Diagnosis Intervertebral disc L5-S1: Fibrocartilage from intervertebral disc. Electronically Signed Out By Denis Lang M.D. Specimen(s) Received: Intervertebral disc Gross Description The specimen, labeled disc, consists of 3.0 cc of pink mathew fragments; submitted in toto. ??MHB/my Microscopic Description Sections of the intervertebral disc material demonstrate fibrocartilage without inflammation or neoplasia. us See Report Interface PATHOLOGY/CYTOLOGY ORDERABL ES Final Result [facility] [address] [place] [address], documented in this encounter Visit Diagnoses Not on filedocumented in this encounter Care Teams Ward Clerk Relationship Specialty Start Date End Date Provider, No Known [facility] [place] [address] PCP - General 12/21/14 12/29/14 documented as of this encounter
--- OUTSIDE RECORDS SUMMARY | 2024-02-20 09:19 | XMS_ITS | Encounter Summary ---
Author Organization [facility] yste Address [address] [place] [address] Care Team Providers Care Training And Development Manager Name Role Phone Provider, No Known Primary Care Provider Unavail able Encounter Details Date Type Department Care Team (Late st Contact Info) Description 03/22/2012 Historical Mammograp hy Encounter [facility] HISTORICAL CONV [address] [place] [address] Interface, See Report Social History [...] [facility] [address] [facility] [place] [address] Pj Ace MD [address] [facility] [address] [place] [address] documented as of this encounter Procedures Procedure Name Priority Date/Time Associated Diagnosis Comments MAMMO HISTORICAL RESULT Routine 03/22/2012 8:19 AM EST documented in this encounter Results * MAMMO HISTORICAL RESULT (03/22/2012 8:19 AM EST) Anatomical Region Laterality Modality Breast Mammography 03/22/2012 8:19 AM EST Narrative 03/22/2012 7:33 PM EST ?[facility] ? [address] ??[place] [address] ? NAME: GERTRUDIS JACOBSON ? : ??[birth year] ??MR#: [id number] ? LOC: ?? CO ? AGE: 56Y ?? Pt type: CO ?Exam Date: 03/22/12819 ? SEX: F ?? AN#:[id number] ?Ck-in#: [id number] ? HENRY,EMELY L ? [address] ? [place] ?[place] ?[address] ? Chk-in # ?? Order ?Exam ?[id number] ?? 0001 ? [id number] ??BC MAMM DIAG BILAT DIG PNL ? Ord Diag: FIBROCYSTIC BR ?[id number] ?? 0002 ? [id number] ??BU US BREAST UNILATERAL*R ? Ord Diag: ABN MMG ? BILATERAL DIAGNOSTIC MAMMOGRAM; RIGHT BREAST ULTRASOUND ?? HISTORY: 56-year-old patient presents for left mammographic followup status post benign surgical excision performed on 12/21/08 revealing sclerosing adenosis and background proliferative fibrocystic change. This is the patient's first mammogram since her surgical excision. She is also due for right mammographic imaging. The patient has no personal or family history of breast cancer and no current breast complaints. ?? TECHNIQUE: Routine bilateral CC and MLO digital mammographic images were obtained. A bilaterally exaggerated right CC view, right CC focal compression view, rolled right CC views, bilateral anterior MLO views, and a right MLO focal compression view were also obtained. Furthermore, routine sonographic images were obtained of the right 9:00 region. ?? COMPARISON: 12/21/08, 11/27/08 and 12/14/05. ?? FINDINGS: There are scattered bilateral fibroglandular densities. There is a nodular asymmetry in the right lateral breast that appears to be located in the 9:00 region based on rolled CC imaging. However, this nodular asymmetry is not visualized on MLO imaging. There is an adjacent oval, isodense mass with partially obscured margins in the right 9:00 region that is stable and likely represents an intramammary lymph node. The bilateral fibroglandular pattern is otherwise stable. There are stable oval, isodense masses in the left upper-outer quadrant. There are scattered bilateral punctate and round calcifications. No worrisome ? FINAL ?CONTINUED ?Page ??1 ? RADIOLOGY REPORT ?[facility] ? [address] ??[facility] [address] ? NAME: GERTRUDIS JACOBSON ? : ??[birth year] ??MR#: [id number] ? LOC: ?? CO ? AGE: 56Y ?? Pt type: CO ?Exam Date: 03/22/12819 ? SEX: F ?? AN#:[id number] ?Ck-in#: [id number] ? HENRY,EMELY L ? [address] ? [place] ?[place] ?[address] ? Checkin-Exam Code Summary ? [phone] calcifications are visualized. ?? Sonographic evaluation of the right 9:00 region demonstrates a cluster of cysts in the 10:00 position located 4-5 cm from the nipple that may correlate to the nodular asymmetry noted mammographically. There is an adjacent 0.7 cm intramammary lymph node that is also located in the right 10:00 position and correlates to the stable mass noted mammographically. ?? IMPRESSION: 1. Right lateral mammographic nodular asymmetry that may correlate to a cluster of cysts on ultrasound imaging. 2. Benign left mammogram. ?? RECOMMENDATION: Short-interval right mammographic followup in six months to re-evaluate the right lateral nodular asymmetry. ?? BI-RADS CATEGORY III, PROBABLY BENIGN. ?? iCAD was utilized. ?? The standard false-negative rate of mammography is between 10 and 25%. Complex patterns or increased breast density will markedly elevate the false-negative rate of mammography. ? A results letter, in lay terminology, will be given to the patient at the conclusion of the exam. ?/READ BY/ JUN PEREZ ?/Released By/ JUN PEREZ ?Released By Date/Time: ??03/22/121757 ?[employer] Products Inspectors: ??LS ? FINAL ? Page ??2 ? RADIOLOGY REPORT us See Report Interface IMG MAMMOGRAPHY ORDERABLES Final Result documented in this encounter Visit Diagnoses Not on filedocumented in this encounter Care Teams Training And Development Manager Relationship Specialty Start Date End Date Provider, [place] [address] PCP - General 12/21/14 12/29/14 documented as of this encounter
--- OUTSIDE RECORDS SUMMARY | 2024-02-20 09:19 | XMS_ITS | Encounter Summary ---
[facility] [address] [place] [address] Care Team Providers Care Pasteuriser Operator Name Role Phone Deepak Cortez MD Primary Care Provider Unav ailable Reason for Visit * Reason Comments Annual Exam Encounter Details Date Type Department Care Team ([facility] st Contact Info) Description 01/17/2013 Office Visit Converted [facility] INTERNAL MEDICINE [address] [place] [address] Sandy Reyes PA [address] [place] [address] Social History Tobacco Use Types Packs/Day Years Used Date Smoking Tobacco: Never Assessed Comments Unknown Sex and Gender Information Value Date Recorded Sex Assigned at Not on file Legal Sex Female 10:25 AM EDT Gender Identity Not on file Sexual Orientation Not on file documented as of this encounter Last Filed Vital Signs Vital Sign Reading Time Taken Comments Blood Pressure 118/76 01/17/2013 9:53 AM EDT Pulse 82 01/17/2013 9:53 AM EDT Temperature 37.2 ??C (98.9 ??F) 01/17/2013 9:59 AM ED T Respiratory Rate - - Oxygen Saturation - - Inhaled Oxygen Concentration - - Weight 88.5 kg (195 lb) 01/17/2013 9:53 AM EDT Height 157.5 cm (5' 2 ) 01/17/2013 9:59 AM EDT Body Mass Index 35.67 01/17/2013 9:53 AM EDT documented in this encounter Progress Notes * Sandy Reyes PA - 01/17/2013 9:30 AM EDT Chief Complaint PT NEEDS PHYSICAL FOR WORK History of Present Illness HM, Adult Female: The patient is being seen for a health maintenance evaluation. The last health maintenance visit was 1 year(s) ago. Social History: Household members include spouse. She is . 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 The patient has never smoked cigarettes. She reports never drinking alcohol. She has never used illicit drugs. General Health: The patient's health is described as good. She has regular dental visits. She denies vision problems. She has hearing loss. Hearing is slightly decreased. Immunizations status: up to date The patient needs the following immunization(s): tetanus vaccine. Lifestyle:. She consumes a diverse and healthy diet. Diet problems: working on making some changes to improve her diet, decrease portion size and watching time of eating, decrease soft drink. She hasweight concerns. Weight control issues: overweight. She does not exercise regularly. Reproductive health: the patient is postmenopausal . She reports normal menses. She is sexually active. She is monogamous with a male partner. history: G 2P 2. Screening: Cervical cancer screening includes a pap smear performed prior to hysterectomy. Breast cancer screening includes a mammogram performed 2012, a clinical breast exam performed last year and monthly breast self-exams performed. Colorectal cancer screening includes a colonoscopy performed 2010?. Metabolic screening includes lipid profile performed within the past five years, glucose screening performed last year and no previous DEXA. Safety elements used: seat belt, safe driving habits, smoke detector, carbon monoxide detector and gun safe, but no sunscreen. Review of Systems Constitutional: negative. Eyes: negative. ENT: negative. Cardiovascular: negative. Respiratory: negative. Gastrointestinal: negative. Genitourinary: negative. Musculoskeletal: negative. Neurological: negative. Psychiatric: negative. Active Problems 1. Acute Reaction To Stress With Disturbance Of Emotions 308.0 2. Alopecia 704.00 3. Backache 724.5 4. Benign Essential Hypertension 401.1 5. Diabetes Mellitus 250.00 6. Dizziness 780.4 7. Herniated Lumbar Disc 722.10 8. Hypertension 401.9 9. Insomnia 780.52 10. Lumbar Radiculopathy 724.4 11. Lumbar Radiculopathy 724.4 12. Migraine Headache 346.90 13. Morbid Obesity 278.01 14. Taking Medication For A Long Time V58.69 15. Urinary Tract Infection 599.0 16. Vitamin D Deficiency 268.9 Past Medical History [...] Test In Vitro Strip; USE DIRECTED; Therapy: 21Tie1425 to (Last Rx:[id number]) Requested for: 66Mci7527 2. Edarbyclor 40-12.5 MG Oral Tablet; TAKE TWO TABLETS BY MOUTH EVERY DAY; Therapy: 02Feb2012 to (Evaluate:20Wbw3907) Requested for: 06Jvm4938; Last Rx:[id number] 3. Lancets Miscellaneous; USE DIRECTED; Therapy: 52Bxr7400 to (Last Rx:[id number]) Requested for: 55Uwb8308 4. Omeprazole 20 MG Oral Capsule Delayed Release; TAKE ONE CAPSULE BY MOUTH EVERY DAY; Therapy: 09Xch0618 to (Evaluate:38Wez5416) Requested for: 17Aks0430; Last Rx:[id number] 5. Spironolactone 50 MG Oral Tablet; TAKE 1 TABLET DAILY; Therapy: 94Auf7109 to (Evaluate:37Gwn1072) Requested for: 55Gtn9052; Last Rx:[id number] 6. TraZODone HCl 50 MG Oral Tablet; TAKE 1-2 TABLETS AT BEDTIME NEEDED; Therapy: 16Sep2012 to (Evaluate:26Ilo8803) Requested for: 13Jan2013; Last Rx:13Jan2013 7. Xanax 0.25 MG Oral Tablet; TAKE TABLET PRN; Therapy: 15Jan2012 to Allergies 1. Actos TABS 2. Flexeril TABS 3. MetFORMIN HCl TABS 4. Norvasc TABS Vitals Signs [Data Includes: Current Encounter] Temperature: 98.9 FHeight: 5 ft 2 in Heart Rate: 82Systolic: 118Diastolic: 76BMI Calculated: 35.88BSA Calculated: 1.89Weight: 195 lb Physical Exam Constitutional General appearance: No acute distress, well appearing and well nourished. Eyes Conjunctiva and lids: No swelling, erythema or discharge. Pupils and irises: Equal, round, reactive to light. Ophthalmoscopic examination: Normal fundi and optic discs. Ears, Nose, Mouth, and Throat External inspection of ears and nose: Normal. Otoscopic examination: Tympanic membranes translucent with normal light reflex. Canals patent without erythema. Nasal mucosa, septum, and turbinates: Normal without [...] S2, no murmurs. Carotid pulses: 2+ bilaterally. Peripheral vascular exam: Normal. Examination of extremities for edema and/or varicosities: Normal. Chest Breasts: Normal, no dimpling or skin changes appreciated. Palpation of breasts and axillae: Normal, no masses palpated. Abdomen Abdomen: Non-tender, no masses. Lymphatic Palpation of lymph nodes in neck: No lymphadenopathy. Palpation of lymph nodes in axillae: No lymphadenopathy. Palpation of lymph nodes in groin: No lymphadenopathy. Musculoskeletal Gait and station: Normal. Joints, bones, and muscles: Normal. Range of motion: Normal. Stability: Normal. Muscle strength/tone: Normal. Skin Skin and subcutaneous tissue: Normal without rashes or lesions. Neurologic Cranial nerves: Cranial nerves II-XII intact. Reflexes: 2+ and symmetric. Sensation: No sensory loss. Coordination: Normal finger to nose and heel to kennedy. Psychiatric Judgment and insight: Normal. Orientation to person, place, and time: Normal. Recent and remote memory: Intact. Mood and affect: Normal. Results/Data CBC w Auto Diff 17Jan2013 09:42PM Sandy Reyes Test Name Result Flag Reference WBC 8.5 x10E3/uL 3.4-10.8 RBC 5.01 x10E6/uL 3.77-5.28 Hemoglobin 15.1 g/dL 11.1-15.9 Hematocrit 44.5 % 34.0-46.6 MCV 89 fL 79-97 MCH 30.1 pg 26.6-33.0 MCHC 33.9 g/dL 31.5-35.7 Platelets 315 x10E3/uL 155-379 Neutrophils 64 % 40-74 Lymphs 29 % 14-46 Monocytes 5 % 4-12 Eos 1 % 0-5 Basos 1 % 0-3 Neutrophils (Absolute) 5.4 x10E3/uL 1.4-7.0 Lymphs (Absolute) 2.5 x10E3/uL 0.7-3.1 Monocytes(Absolute) 0.4 x10E3/uL 0.1-0.9 Eos (Absolute) 0.1 x10E3/uL 0.0-0.4 Baso (Absolute) 0.1 x10E3/uL 0.0-0.2 Hematology Comments: Immature Cells Immature Grans (Abs) 0.0 x10E3/uL 0.0-0.1 Immature Granulocytes 0 % 0-2 NRBC RDW 13.5 % 12.3-15.4 CMP 17Jan2013 09:42PM Sandy Reyes Test Name Result Flag Reference Glucose, Serum 114 mg/dL H 65-99 Creatinine, Serum 0.76 mg/dL 0.57-1.00 eGFR If NonAfricn Am 88 mL/min/1.73 >59 eGFR If Africn Am 101 mL/min/1.73 >59 BUN 27 mg/dL H 6-24 BUN/Creatinine Ratio 36 H 9-23 Sodium, Serum 138 mmol/L 134-144 Potassium, Serum 4.1 mmol/L 3.5-5.2 Chloride, Serum 97 mmol/L 97-108 Carbon Dioxide, Total 25 mmol/L 19-28 Calcium, Serum 10.2 mg/dL 8.7-10.2 Protein, Total, Serum 7.2 g/dL 6.0-8.5 Albumin, Serum 4.5 g/dL 3.5-5.5 Globulin, Total 2.7 g/dL 1.5-4.5 A/G Ratio 1.7 1.1-2.5 Bilirubin, Total 0.7 mg/dL 0.0-1.2 Alkaline Phosphatase, S 123 IU/L H 42-107 AST (SGOT) 30 IU/L 0-40 ALT (SGPT) 46 IU/L H 0-32 Lipid Profile ( Comprehensive Panel ) 17Jan2013 09:42PM Sandy Reyes Test Name Result Flag Reference Cholesterol, Total 266 mg/dL H 100-199 Triglycerides 138 mg/dL 0-149 HDL Cholesterol 53 mg/dL >39 According to ATP-III Guidelines, HDL-C >59 mg/dL is considered a negative risk factor for CHD. VLDL Cholesterol Bill 28 mg/dL 5-40 LDL Cholesterol Calc 185 mg/dL H 0-99 Comment: TSH 17Jan2013 09:42PM Sandy Reyes Test Name Result Flag Reference TSH 3.380 uIU/mL 0.450-4.500 Vitamin D 25 OH ( Hydroxy ) 17Jan2013 09:42PM Sandy Reyes Vitamin D deficiency has been defined by the Plato of Medicine and an Endocrine Society practice guideline as a level of serum 25-OH vitamin D less than 20 ng/mL (1,2). The Endocrine Society went on to further define vitamin D insufficiency as a level between 21 and 29 ng/mL (2). 1. IOM (Plato of Medicine). 2010. Dietary reference intakes for calcium and D. [place]: The National Academies Press. 2. Bin MF, Sarita NC, Gaby STONE, et al. Evaluation, treatment, and prevention of vitamin D deficiency: an Endocrine Society clinical practice guideline. JCEM. 2010; 96(7):1911-30. Test Name Result Flag Reference Vitamin D, 25-Hydroxy 50.0 ng/mL 30.0-100.0 Vitamin D deficiency has been defined by the Plato of Medicine and an Endocrine Society practice guideline as a level of serum 25-OH vitamin D less than 20 ng/mL (1,2). The Endocrine Society went on to further define vitamin D insufficiency as a level between 21 and 29 ng/mL (2). 1. IOM (Plato of Medicine). 2010. Dietary reference intakes for calcium and D. [place]: The National AcademRELDATA, Inc. Press. 2. Bin MF, Sarita KOHLER, Gaby STONE, et al. Evaluation, treatment, and prevention of vitamin D deficiency: an Endocrine Society clinical practice guideline. JCEM. 2010; 96(7):1911-30. In Office Urine Dip Automated No Micro 17Jan2013 03:25PM Sandy Reyes Test Name Result Flag Reference SG 1.020 Ph 6 LE 25 CRISTOBAL/UL Nit NEG Prot NEG Glucose NORM Ket NEG UroBil NORM Bili NEG Bld NEG Assessment 1. Health Maintenance V70.0 2. Diabetes Mellitus 250.00 pre diabetes 3. Vitamin D Deficiency 268.9 Plan Health Maintenance (V70.0) ?? CBC w Auto Diff Done: 17Jan2013 09:42PM ?? CMP Done: 17Jan2013 09:42PM ?? Lipid Profile ( Comprehensive Panel ) Done: 17Jan2013 09:42PM ?? TSH Done: 17Jan2013 09:42PM Health Maintenance (V70.0), Vitamin D Deficiency (268.9) ?? Vitamin D 25 OH ( Hydroxy ) Done: 17Jan2013 09:42PM ?? In Office Urine Dip Automated No Micro Done: 17Jan2013 03:25PM Discussion/Summary Impression: health maintenance visit, healthy adult female. Currently, she eats a healthy diet and has an inadequate exercise regimen. Cervical cancer screening: the risks and benefits of cervical cancer screening were discussed and cervical cancer screening is not indicated. Breast cancer screening: the risks and benefits of breast cancer screening were discussed and mammogram is current. Colorectal cancer screening: the risks and benefits of colorectal cancer screening were discussed and colorectal cancer screening is current. Osteoporosis screening: the risks and benefits of osteoporosis screening were discussed and bone mineral density testing has been ordered. Screening lab work includes hemoglobin, glucose, lipid profile, thyroid function testing, 25- hydroxyvitamin D and urinalysis.The risks and benefits of immunizations were discussed and Pt will return when TDaP is available. Advice and education were given regarding nutrition, aerobic exercise, weight bearing exercise and weight loss. Signatures Electronically signed by : Sandy Reyes PA-C; Jan 23 2013 4:55PM (Co-author) Electronically signed by : Leidy Robertson M.D.; Aug 27 2013 9:19PM EST (Review) documented in this encounter Plan of Treatment Upcoming Encounters Date Type Department Care Team (Late st Contact Info) Description 03/13/2024 2:45 PM EST Office Visit [facility] CARDIOLOGY [address] [place] [address] [place] [address] Pj Ace MD [address] [facility] [address] [facility] [address] [place] [address] documented as of this encounter Visit Diagnoses Not on filedocumented in this encounter Care Teams Pasteuriser Operator Relationship Specialty Start Date End Date Deepak Cortez MD PCP - General 12/31/14 12/12/16 documented as of this encounter
--- OUTSIDE RECORDS SUMMARY | 2024-02-20 09:19 | XMS_ITS | Encounter Summary ---
[facility] Address [address] [place] [address] Care Team Providers Care As400 Analyst Name Role Phone Deepak Cortez MD Primary Care Provider Unav ailable Encounter Details Date Type Department Care Team (Late st Contact Info) Description 10/01/2012 Office Visit Converted [facility] INTERNAL MEDICINE [address] [place] [address] Leidy Robertson MD [address] [place] [address] Social History Tobacco Use Types Packs/Day Years Used Date Smoking Tobacco: Never Assessed Comments Unknown Sex and Gender Information Value Date Recorded Sex Assigned at Not on file Legal Sex Female 10:25 AM EDT Gender Identity Not on file Sexual Orientation Not on file documented as of this encounter Last Filed Vital Signs Vital Sign Reading Time Taken Comments Blood Pressure 134/80 10/01/2012 9:19 AM EDT Pulse 74 10/01/2012 9:19 AM EDT Temperature 36.7 ??C (98.1 ??F) 10/01/2012 9:19 AM ED T Respiratory Rate - - Oxygen Saturation - - Inhaled Oxygen Concentration - - Weight 92.6 kg (204 lb 2 oz) 10/01/2012 9:19 AM EDT Height - - Body Mass Index 37.33 09/16/2012 12:42 PM EDT documented in this encounter Progress Notes * Leidy Robertson MD - 10/01/2012 9:30 AM EDT Chief Complaint Follow up for blood pressure History of Present Illness HPI: had complications after lumbar spine surgery, still not back to work, seeing Dr. Adams and injection helped, if pain management helps, will not have to go back to surgery seeing another doctor for diabetes, glucose 158, not on med for prediabetes, working on diet Hypertension (Follow-Up): The patient presents for follow-up of primary hypertension. The patient states she has been doing well with her blood pressure control since the last visit. Interval Events: Med caused irreg heartbeat, resolved. She has no significant interval events. Symptoms: The patient is currently asymptomatic. Home monitoring: The patient is not checking blood pressure at home. Medications: The patient is adherent with her medication regimen. She denies medication side effects. Disease Management: The patient is doing well with her blood pressure goals. Review of Systems Constitutional: negative. Cardiovascular: negative. Respiratory: negative. Integumentary: hair loss, diffuse, no scalp rash or lesions. Constitutional: negative. Cardiovascular: negative. Respiratory: negative. Other Symptoms: hair falling out,. Active Problems 1. Backache 724.5 2. Dizziness 780.4 3. Herniated Lumbar Disc 722.10 4. Hypertension 401.9 5. Insomnia 780.52 6. Lumbar Radiculopathy 724.4 7. Lumbar Radiculopathy 724.4 8. Migraine Headache 346.90 9. Morbid Obesity 278.01 10. Taking Medication For A Long Time V58.69 11. Urinary Tract Infection 599.0 Vitamin D Deficiency 268.9 Benign Essential Hypertension 401.1 Diabetes Mellitus 250.00 pre diabetes Past Medical History ?? History of Anxiety [...] ?? Never Drank Alcohol Current Meds 1. Lyrica 75 MG Oral Capsule; TAKE 1 CAPSULE 3 TIMES DAILY; Therapy: (Recorded:16Sep2012) to 2. Omeprazole 20 MG Oral Capsule Delayed Release; TAKE ONE CAPSULE BY MOUTH EVERY DAY; Therapy: 15Jan2012 to (Evaluate:27Oct2012) Requested for: 16Sep2012; Last Rx:30Apr2012 3. TraZODone HCl 50 MG Oral Tablet; TAKE 1-2 TABLETS AT BEDTIME NEEDED; Therapy: 16Sep2012 to (Evaluate:14Apr2013) Requested for: 16Sep2012; Last Rx:16Sep2012 4. Xanax 0.25 MG Oral Tablet; TAKE TABLET PRN; Therapy: 15Jan2012 to Allergies 1. Actos TABS 2. Flexeril TABS 3. MetFORMIN HCl TABS 4. Norvasc TABS Vitals Signs [Data Includes: Current Encounter] Temperature: 98.1 F, Heart Rate: 74, Systolic: 134, Diastolic: 80, BMI Calculated: 37.56, BSA Calculated: 1.92, Weight: 204 lb 2 oz Physical Exam Constitutional General appearance: No acute distress, well appearing and well nourished. Pulmonary Respiratory effort: No increased work of breathing or signs of respiratory distress. Auscultation of lungs: Clear to auscultation. Cardiovascular Carotids normal. Auscultation of heart: Normal rate and rhythm, normal S1 and S2, without murmurs. Examination of extremities for edema and/or varicosities: Normal. Skin Diffuse thinning of hair, no skin condition. Assessment 1. Taking Medication For A Long Time V58.69 2. Alopecia 704.00 Benign Essential Hypertension 401.1 Plan Edarbyclor 40-12.5 MG Oral Tablet; TAKE TWO TABLETS BY MOUTH EVERY DAY; Therapy: 02Feb2012 to (Evaluate:[id number]) Requested for: 01Oct2012; Last Rx:01Oct2012; Status: ACTIVE Ordered; For: Benign Essential Hypertension (401.1); Rx By: Leidy Robertson; Dispense: 90 Days ; #:180 Tablet; Refill: 1; Verified Transmission to [facility]; Last Updated By: Kalani Tadeo CMP Status: Resulted - Requires Verification Done: 02Apr2023 12:00AM Ordered; For: Alopecia (704.00); Ordered By: Leidy Robertson Due: [id number] Marked Important; Last Updated By: Yudy Olivia Lipid Profile ( Comprehensive Panel ) Status: Resulted - Requires Verification Done: 02Apr2023 12:00AM Ordered; For: Alopecia (704.00); Ordered By: Leidy Robertson Due: 20Ohz4592 Marked Important; Last Updated By: Yudy Olivia TSH Status: Resulted - Requires Verification Done: 02Apr2023 12:00AM Ordered; For: Alopecia (704.00); Ordered By: Leidy Robertson Due: 03Rst6047 Marked Important; Last Updated By: Yudy Olivia hair loss may be due to prior surgery and may be temporary follow up 3-4 mos. Signatures Electronically signed by : Leidy Robertson M.D.; Mar 22 2013 1:54PM (Author) documented in this encounter Miscellaneous Notes * Telephone Encounter - Interface, See Report - 10/01/2012 9:30 AM EDT Message Recorded as Task Date: 10/01/2012 01:40 PM, Created By: Emily Kaur Task Name: Med Renewal Request Assigned To: Francis Jaimes Regarding Patient: GERTRUDIS JACOBSON, Status: Active Comment: Emily Kaur - 01 Oct 2012 1:40 PM TASK CREATED Caller: Self; Renew Medication; please call in for pt her test strips for a alla meter. Pt uses [facility] in [place] [phone] Kalani Tadeo - 01 Oct 2012 4:42 PM TASK EDITED called in test strips Signatures Electronically signed by : Kalani Tadeo, ; Oct 01 2012 4:43PM (Author) documented in this encounter Plan of Treatment Upcoming Encounters Date Type Department Care Team (Late st Contact Info) Description 03/13/2024 2:45 PM EST Office Visit [facility] C[facility]IOLOG[facility] [address] [place] [address] [place] [address] Pj Ace MD [address] [facility] [address] [place] [address] documented as of this encounter Visit Diagnoses Not on filedocumented in this encounter Care Teams As400 Analyst Relationship Specialty Start Date End Date Deepak Cortez MD PCP - General 12/31/14 12/12/16 documented as of this encounter
--- OUTSIDE RECORDS SUMMARY | 2024-02-20 09:19 | XMS_ITS | Encounter Summary ---
Author Organization [facility] Address [address] [place] [address] Care Team Providers Care Automobile Upholsterer Name Role Phone Deepak Cortez MD Primary Care Provider Unav ailable Encounter Details Date Type Department Care Team (Late st Contact Info) Description 01/23/2013 Documentation Converted [facility] HISTORICAL CONV [address] [place] [address] Provider, MD Aiyana [address] [place] [address] Social History Tobacco Use Types Packs/Day Years Used Date Smoking Tobacco: Never Assessed Comments Unknown Sex and Gender Information Value Date Recorded Sex Assigned at Not on file Legal Sex Female 10:25 AM EDT Gender Identity Not on file Sexual Orientation Not on file documented as of this encounter Miscellaneous Notes * Letter - Sandy Reyes PA - 01/23/2013 9:54 PM EDT Dear GERTRUDIS JACOBSON, Your test results have returned and are listed below: Message Your labs look good overall except your bad (LDL) and total cholesterol are elevated. The level is high enough that we should go ahead and start some medication to bring it down. I will send Pravastatin in to your pharmacy and you can begin taking it daily. Let me know if you have any problems withit. Please come fasting to your follow up with Dr. Robertson in March so we can recheck your cholesterol. Please call with any questions! Results/Data Results [Data Includes: Current Encounter] 17Jan2013 09:42PM CBC w Auto Diff WBC: 8.5 x10E3/uL Reference Range 3.4-10.8 RBC: 5.01 x10E6/uL Reference Range 3.77-5.28 Hemoglobin: 15.1 g/dL Reference Range 11.1-15.9 Hematocrit: 44.5 % Reference Range 34.0-46.6 MCV: 89 fL Reference Range 79-97 MCH: 30.1 pg Reference Range 26.6-33.0 MCHC: 33.9 g/dL Reference Range 31.5-35.7 Platelets: 315 x10E3/uL Reference Range 155-379 Neutrophils: 64 % Reference Range 40-74 Lymphs: 29 % Reference Range 14-46 Monocytes: 5 % Reference Range 4-12 Eos: 1 % Reference Range 0-5 Basos: 1 % Reference Range 0-3 Neutrophils (Absolute): 5.4 x10E3/uL Reference Range 1.4-7.0 Lymphs (Absolute): 2.5 x10E3/uL Reference Range 0.7-3.1 Monocytes(Absolute): 0.4 x10E3/uL Reference Range 0.1-0.9 Eos (Absolute): 0.1 x10E3/uL Reference Range 0.0-0.4 Baso (Absolute): 0.1 x10E3/uL Reference Range 0.0-0.2 Hematology Comments:: Immature Cells: Immature Grans (Abs): 0.0 x10E3/uL Reference Range 0.0-0.1 Immature Granulocytes: 0 % Reference Range 0-2 NRBC: RDW: 13.5 % Reference Range 12.3-15.4 CMP Glucose, Serum: 114 mg/dL Abnormal High Reference Range 65-99 Creatinine, Serum: 0.76 mg/dL Reference Range 0.57-1.00 eGFR If NonAfricn Am: 88 mL/min/1.73 Reference Range >59 eGFR If Africn Am: 101 mL/min/1.73 Reference Range >59 BUN: 27 mg/dL Abnormal High Reference Range 6-24 BUN/Creatinine Ratio: 36 Abnormal High Reference Range 9-23 Sodium, Serum: 138 mmol/L Reference Range 134-144 Potassium, Serum: 4.1 mmol/L Reference Range 3.5-5.2 Chloride, Serum: 97 mmol/L Reference Range 97-108 Carbon Dioxide, Total: 25 mmol/L Reference Range 19-28 Calcium, Serum: 10.2 mg/dL Reference Range 8.7-10.2 Protein, Total, Serum: 7.2 g/dL Reference Range 6.0-8.5 Albumin, Serum: 4.5 g/dL Reference Range 3.5-5.5 Globulin, Total: 2.7 g/dL Reference Range 1.5-4.5 A/G Ratio: 1.7 Reference Range 1.1-2.5 Bilirubin, Total: 0.7 mg/dL Reference Range 0.0-1.2 Alkaline Phosphatase, S: 123 IU/L Abnormal High Reference Range 42-107 AST (SGOT): 30 IU/L Reference Range 0-40 ALT (SGPT): 46 IU/L Abnormal High Reference Range 0-32 Lipid Profile ( Comprehensive Panel ) Cholesterol, Total: 266 mg/dL Abnormal High Reference Range 100-199 Triglycerides: 138 mg/dL Reference Range 0-149 HDL Cholesterol: 53 mg/dL Reference Range >39 VLDL Cholesterol Bill: 28 mg/dL Reference Range 5-40 LDL Cholesterol Ca mg/dL Abnormal High Reference Range 0-99 Comment:: TSH TSH: 3.380 uIU/mL Reference Range 0.450-4.500 Vitamin D 25 OH ( Hydroxy ) Vitamin D, 25-Hydroxy: 50.0 ng/mL Reference Range 30.0-100.0 If you have any questions, please don't hesitate to call the office. Sincerely, Signatures Electronically signed by : Sandy Reyes PA-C; Jan 24 2013 8:17AM documented in this encounter Plan of Treatment Upcoming Encounters Date Type Department Care Team (Late st Contact Info) Description 03/13/2024 2:45 PM EST Office Visit [facility] CARDIOLOG[facility] [address] [place] [address] [place] [address] Pj Ace MD [address] [facility] [address] [address] documented as of this encounter Visit Diagnoses Not on filedocumented in this encounter Care Teams Automobile Upholsterer Relationship Specialty Start Date End Date Deepak Cortez MD PCP - General 12/31/14 12/12/16 documented as of this encounter
--- OUTSIDE RECORDS SUMMARY | 2024-02-20 09:19 | XMS_ITS | Encounter Summary ---
[facility] Organization [facility] Address [address] [place] [address] Care Team Providers Care Decorating Equipment Setter Name Role Phone Provider, No Known Primary Care Provider Unavail able Encounter Details Date Type Department Care Team (Late st Contact Info) Description 06/17/2012 Conversion Encounter [facility] HISTORICAL CONV [address] [place] [address] Interface, See Report Social History [...] [facility] [address] [place] [address] [place] [address] Pj Ace MD [address] [facility] [address] [place] [address] documented as of this encounter Procedures Procedure Name Priority Date/Time Associated Diagnosis Comments CONVERTED (HISTORICAL) SURGICAL PATHOLOGY Routine 06/17/2012 9:50 AM EDT documented in this encounter Results * Converted Surgical Pathology (06/17/2012 9:50 AM EDT) 06/17/2012 9:50 AM EDT Narrative [facility] - 06/18/2012 1:51 PM EDT [facility] [address] [place] [address] SURGICAL PATHOLOGY REPORT Patient Name: GERTRUDIS JACOBSON MR#: [id number] : 1955 Gender: F Ordering Physician: TRAE TOLENTINO Copy To: ?? 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 Final Diagnosis Intervertebral disc L4-5: ? Fibrocartilage from intervertebral disc. JFJ/mbc Amendments: Electronically Signed Out By Denis Lang M.D. Specimen(s) Received: Intervertebral disc Gross Description Received in formalin labeled disc consists of a 1.5x1.5x0.4 cm aggregate of mathew/pink fibrocartilaginous soft tissue fragments submitted in toto in one cassette. M/mbc Microscopic Description Sections of the intervertebral disc material demonstrate fibrocartilage without inflammation or neoplasia. ?? JFJ/mbc Procedures/Addenda us See Report Interface PATHOLOGY/CYTOLOGY ORDERABL ES Final Result [facility] [address] [place] [address], documented in this encounter Visit Diagnoses Not on filedocumented in this encounter Care Teams Decorating Equipment Setter Relationship Specialty Start Date End Date Provider, [place] [address] PCP - General 12/21/14 12/29/14 documented as of this encounter
--- OUTSIDE RECORDS SUMMARY | 2024-02-20 09:19 | XMS_ITS | Encounter Summary ---
Author Organization [facility] yste Address [address] [place] [address] Care Team Providers Care Quality Rep Name Role Phone Deepak Cortez MD Primary Care Provider Unav ailable Encounter Details Date Type Department Care Team (Late st Contact Info) Description 09/16/2012 Office Visit Converted [facility] MED[facility] PAIN MANAGEMENT [address] [address] Bebeto Adams MD 17[address] [facility] [address] [place] [address] Social History Tobacco Use Types Packs/Day Years Used Date Smoking Tobacco: Never Assessed Comments Unknown Sex and Gender Information Value Date Recorded Sex Assigned at Not on file Legal Sex Female 10:25 AM EDT Gender Identity Not on file Sexual Orientation Not on file documented as of this encounter Last Filed Vital Signs Vital Sign Reading Time Taken Comments Blood Pressure 128/84 09/16/2012 12:42 PM EDT Pulse 96 09/16/2012 12:42 PM EDT Temperature 36.7 ??C (98 ??F) 09/16/2012 12:42 PM EDT Respiratory Rate 18 09/16/2012 12:42 PM EDT Oxygen Saturation 91% 09/16/2012 12:42 PM EDT Inhaled Oxygen Concentration - - Weight 92.3 kg (203 lb 6 oz) 09/16/2012 12:42 PM EDT Height 157.5 cm (5' 2 ) 09/16/2012 12:42 PM EDT Body Mass Index 37.2 09/16/2012 12:42 PM EDT documented in this encounter Progress Notes * Bebeto Adams - 09/16/2012 12:00 PM EDT Chief Complaint I got back pain and tailbone pain running down my left leg to my ankle. History of Present Illness HPI: The patient complains of lower back pain radiating down to the lateral aspect of her left lower extremity to the top of her left foot. She experiences numbness and tingling in the same distribution of her pain. She rates her pain today 6 out of 10. The pain increases with bending, squatting orany activities. Patient is able to control her back pain sometimes with ice packs and other analgesics. However, she is unable to find any medications or treatments that may alleviate her left lower extremity pain. She experiences a great deal of nocturnal pain which causes fragmentation of her sleep. Patient reports a history of back pain since 2003. She underwent back surgery in 2004 which resulted in pain relief until July 2011. Most recently on 2012 and June 17, 2012 she underwent back surgery, which she states helped with some of her left leg pain, since the pain at the present time he is in a different distribution. Patient underwent a left L4-L5 discectomy as well as L5-S1 foraminotomy. On June 17, 2012 she was reexplored and underwent redo left L4-L5 discectomy and redo left L5-S1 foraminotomy and neurolysis. Patient reports numbness and weakness in her left lower extremity. She denies any new bladder or bowel problems. Abrahan report [phone], appropriate. Review of Systems Constitutional: recent weight gain, but negative. Eyes: negative. ENT: negative. Cardiovascular: negative. Respiratory: negative. Gastrointestinal: nausea, constipation and GERD. Genitourinary: incontinence and bladder sling. Musculoskeletal: limb pain. Neurological: headache, numbness, tingling and dizziness. Psychiatric: anxiety, depression and panic attacks. Endocrine: pre diabetes. Hematologic/Lymphatic: negative. Active Problems 1. Backache 724.5 2. Benign Essential Hypertension 401.1 3. Dizziness 780.4 4. Hypertension 401.9 5. Lumbar Radiculopathy 724.4 6. Taking Medication For A Long Time V58.69 7. Urinary Tract Infection 599.0 8. Vitamin D Deficiency 268.9 Past Medical History [...] ?? Caffeine Use ?? Marital History - V61.03 ?? Never A Smoker ?? Never Drank Alcohol Current Meds 1. Jsdujrermz-SUUB-Kowyamtz 50-325-40 MG Oral Tablet; Therapy: 16Jan2012 to 2. Edarbyclor 40-12.5 MG Oral Tablet; TAKE 2 TABLET Daily; Therapy: 02Feb2012 to (Evaluate:[id number]) Requested for: 20Feb2012; Last Rx:20Feb2012 3. Lyrica 75 MG Oral Capsule; TAKE 1 CAPSULE 3 TIMES DAILY; Therapy: (Recorded:16Sep2012) to 4. Xanax 0.25 MG Oral Tablet; TAKE TABLET PRN; Therapy: 15Jan2012 to Allergies 1. Actos TABS 2. Flexeril TABS 3. MetFORMIN HCl TABS 4. Norvasc TABS Vitals Signs [Data Includes: Current Encounter] Temperature: 98 F, Heart Rate: 96, Respiration: 18, Systolic: 128, Diastolic: 84, BMI Calculated: 37.43, BSA Calculated: 1.92, Height: 5 ft 2 in, Weight: 203 lb 6 oz, O2 Saturation: 91 Physical Exam Constitutional General appearance: No acute distress, well appearing and well nourished. Morbidly obese. Head and Face Head and face: Normal. Eyes Conjunctiva and lids: No swelling, erythema [...] or cyanosis. The range of motion of lumbar spine is limited secondary to pain. For forward flexion is full. Extension is 10 degrees. Lumbar facet joint maneuvers are positive. Danny and Gaenslen tests are negative. The range of motion of the hip joints isfull and without pain. Muscle tone is normal. Presents as a well healed surgical scar in the midline of the lumbar region. Stability: Normal. Muscle strength/tone: Normal. Skin Skin and subcutaneous tissue: Normal without rashes or lesions. Neurologic Cranial nerves: Cranial nerves II-XII intact. Cortical function: Normal mental status. Reflexes: 2+ and symmetric. Straight leg raising test is positive on the left, with a positive contralateral straight leg raising test elliciting pain in the left lower extremity.. Femoral stretch sign is negative. Romberg's sign is negative. No clonus or Babinski. Sensation: No sensory loss. Psychiatric Judgment and insight: Normal. Orientation to person, place, and time: Normal. Recent and remote memory: Intact. Mood and affect: Normal. Assessment 1. Lumbar Radiculopathy 724.4 2. Herniated Lumbar Disc 722.10 3. Morbid Obesity 278.01 4. Diabetes Mellitus 250.00 pre diabetes 5. Insomnia 780.52 Plan I had a lengthy conversation with Mrs. Mazariegos regarding her chronic pain condition and potential therapeutic options. The patient has failed to obtain pain relief with conservative measures including anti-inflammatories, opioids, Lyrica, Neurontin, physical therapy, to name a few. Therefore, I have proposed the following plan.: #1 Patient will be scheduled for diagnostic/theapeutic left L4-L5 and left L5-S1 transforaminal epidural steroid injections. #2 Referral to [facility] #3 Start comprehensive physical therapy program for aqua therapy, neurodynamics, and progressive core strengthening. #4 Continue Lyrica 75 mg 2 times a day #5 Trial with trazodone 50 mg (#60 with six refills) 1-2 tablets at bedtime for insomnia. #6 I have advised the patient to start an independent exercise program particularly for aqua therapy/swimming #7 The patient has been instructed to contact my office with any questions or difficulties. The patient understands the plan and agrees to proceed accordingly. CC: Cam Garrison M.D. Leidy Robertson M.D. [facility] internal medicine [address] [facility] [address] [place] [address] Signatures Electronically signed by : Bebeto Adams M.D.; Sep 16 2012 1:54PM (Author) documented in this encounter Plan of Treatment Upcoming Encounters Date Type Department Care Team (Late st Contact Info) Description 03/13/2024 2:45 PM EST Office Visit [facility] CARDIOLOGY [address] [facility] [place] [address] Pj Ace MD [address] [facility] [address] [facility] [address] [place] [address] documented as of this encounter Visit Diagnoses Not on filedocumented in this encounter Care Teams Quality Rep Relationship Specialty Start Date End Date Deepak Cortez MD PCP - General 12/31/14 12/12/16 documented as of this encounter
--- OUTSIDE RECORDS SUMMARY | 2024-02-20 09:19 | XMS_ITS | Encounter Summary ---
Author Organization [facility] yste Address [address] [place] [address] Care Team Providers Care Histological Illustrator Name Role Phone Deepak Cortez MD Primary Care Provider Unav ailable Encounter Details Date Type Department Care Team (Late st Contact Info) Description 10/17/2012 Office Visit Converted [facility]NA[facility] [address] [address] Bebeto Adams MD 1760 [facility] [address] [place] [id number] Social History Tobacco Use Types Packs/Day Years Used Date Smoking Tobacco: Never Assessed Comments Unknown Sex and Gender Information Value Date Recorded Sex Assigned at Not on file Legal Sex Female 10:25 AM EDT Gender Identity Not on file Sexual Orientation Not on file documented as of this encounter Last Filed Vital Signs Vital Sign Reading Time Taken Comments Blood Pressure 126/84 10/17/2012 9:46 AM EDT Pulse 72 10/17/2012 9:46 AM EDT Temperature - - Respiratory Rate 16 10/17/2012 9:46 AM EDT Oxygen Saturation 92% 10/17/2012 9:46 AM EDT Inhaled Oxygen Concentration - - Weight 91.6 kg (202 lb 0.1 oz) 10/17/2012 9:46 A M EDT Height 157.5 cm (5' 2 ) 10/17/2012 9:46 AM EDT Body Mass Index 36.95 10/17/2012 9:46 AM EDT documented in this encounter Progress Notes * Bebeto Adams - 10/17/2012 9:00 AM EDT Chief Complaint I have a little pain in my buttocks and left ankle. It's much better. My back hurts . History of Present Illness HPI: Mrs. Mazariegos is here for follow up of left L4-L5 and left L5-S1 transforaminal epidural, preformed on September 23, 2012. She reports 100% relief of the left lower extremity pain and 50% ongoing reliefof bilateral buttock and left ankle pain. She rates her pain 4/10, described as if feels like a pulling and pinching . Patient denies numbness or weakness in her lower extremities, or any new bladder lower problems. Her activiy level as significantly increased. The patient was seen at [facility] on September 24, 2012 and is scheduled for a follow up on October 24, 2012. She has not started physical therapy and aqua therapy, stating they did not call. She continues on take L yricia 75mg, tid and trazadone 50-100mg at bedtime. The patient complains of feeling of forgetfulness and loss of control, occuring about one week ago after increasing Lyrica to 3 times a day. Duringthe past week she has decreased her Lyrica from tid to bid and feels the problems have somewhat improved. The patient denies any new health related issues.GENE #[id number], shows new prescription for Phentermine. She denies starting the medication. Review of Systems Constitutional: negative. ENT: negative. [...] ?? Never Drank Alcohol Current Meds 1. Edarbyclor 40-12.5 MG Oral Tablet; TAKE TWO TABLETS BY MOUTH EVERY DAY; Therapy: 02Feb2012 to (Evaluate:[id number]) Requested for: [id number]; Last Rx:[id number] 2. FreeStyle Test In Vitro Strip; USE 1 STRIP 4 TIMES DAILY; Therapy: [id number] to (Evaluate:30Jan2013) Requested for: [id number]; Last Rx:[id number] 3. Lyrica 75 MG Oral Capsule; TAKE 1 CAPSULE 3 TIMES DAILY; Therapy: (Recorded:16Sep2012) to 4. Omeprazole 20 MG Oral Capsule Delayed Release; TAKE ONE CAPSULE BY MOUTH EVERY DAY; Therapy: 15Jan2012 to (Evaluate:[id number]) Requested for: 16Sep2012; Last Rx:30Apr2012 5. TraZODone HCl 50 MG Oral Tablet; TAKE 1-2 TABLETS AT BEDTIME NEEDED; Therapy: 16Sep2012 to (Evaluate:14Apr2013) Requested for: 16Sep2012; Last Rx:16Sep2012 6. Xanax 0.25 MG Oral Tablet; TAKE TABLET PRN; Therapy: 15Jan2012 to Allergies 1. Actos TABS 2. Flexeril TABS 3. MetFORMIN HCl TABS 4. Norvasc TABS Vitals Signs [Data Includes: Current Encounter] Heart Rate: 72, Respiration: 16, Systolic: 126, Diastolic: 84, BMI Calculated: 37.17, BSA Calculated: 1.92, Height: 5 ft 2 in, Weight: 202 lb , O2 Saturation: 92 Physical Exam Constitutional General appearance: No acute [...] and/or varicosities: Normal. Musculoskeletal Gait and station: Normal. Digits and nails: Normal without clubbing or cyanosis. Active and passive range of motion of the lumbar spine: Forward flexion is full. Extension is limited to 5 degrees secondary to pain. Lumbar facet joint loading maneuvers are positive. Danny and Gaenslen space and negative. The range of motion of the hip joints is full and without pain. Muscle tone is normal. Muscle strength/tone: Normal. Neurologic Cranial nerves: Cranial nerves II-XII intact. Cortical function: Normal mental status. Reflexes: 2+ and symmetric. Straight leg raising test is negative. Femoral stress sign is negative.No clonus Babinski. Sensation: No sensory loss. Coordination: Normal finger to nose and heel to kennedy. Psychiatric Judgment and insight: Normal. Orientation to person, place, and time: Normal. Recent and remote memory: Intact. Mood and affect: Normal. Assessment 1. Lumbar radiculopathy. 2. Lumbar disc herniation. 3. Lumbar facet arthropathy 4. Morbid obesity. 5. Pre-diabetes. 6. Insomnia. Plan 1. Patient will be scheduled for left L4-L5 and left L5-S1 transforaminal epidural steroid injections. 2. Start a comprehensive physical therapy program immediately. 3. Start independent exercise program, particularly for aqua therapy immediately. 4. Continue Lyrica 75 mg twice a day. 5. Continue trazodone 50-100 mg each bedtime for insomnia. 6. Followup at [facility]. 7. Patient wishes to return to work after her next procedure. I have encouraged the patient to proceed with this. 8. The patient has been instructed to contact my office with any questions or difficulties. The patient understands the plan and agrees to proceed accordingly. cc: Damien Berg M.D. Leidy Robertson M.D. Signatures Electronically signed by : Bebeto Adams M.D.; Oct 17 2012 11:35AM (Author) documented in this encounter Miscellaneous Notes * Letter - Bebeto Adams - 10/17/2012 9:00 AM EDT Chief Complaint I have a little pain in my buttocks and left ankle. It's much better. My back hurts . History of Present Illness HPI: Mrs. Mazariegos is here for follow up of left L4-L5 and left L5-S1 transforaminal epidural, preformed on September 23, 2012. She reports 100% relief of the left lower extremity pain and 50% ongoing reliefof bilateral buttock and left ankle pain. She rates her pain 4/10, described as if feels like a pulling and pinching . Patient denies numbness or weakness in her lower extremities, or any new bladder lower problems. Her activiy level as significantly increased. The patient was seen at [facility] on September 24, 2012 and is scheduled for a follow up on October 24, 2012. She has not started physical therapy and aqua therapy, stating they did not call. She continues on take L yricia 75mg, tid and trazadone 50-100mg at bedtime. The patient complains of feeling of forgetfulness and loss of control, occuring about one week ago after increasing Lyrica to 3 times a day. Duringthe past week she has decreased her Lyrica from tid to bid and feels the problems have somewhat improved. The patient denies any new health related issues.[facility] #[id number], shows new prescription for Phentermine. She denies starting the medication. Review of Systems Constitutional: negative. ENT: negative. [...] ?? Never Drank Alcohol Current Meds 1. Edarbyclor 40-12.5 MG Oral Tablet; TAKE TWO TABLETS BY MOUTH EVERY DAY; Therapy: 02Feb2012 to (Evaluate:[id number]) Requested for: [id number]; Last Rx:[id number] 2. FreeStyle Test In Vitro Strip; USE 1 STRIP 4 TIMES DAILY; Therapy: [id number] to (Evaluate:30Jan2013) Requested for: 02Oct2012; Last Rx:[id number] 3. Lyrica 75 MG Oral Capsule; TAKE 1 CAPSULE 3 TIMES DAILY; Therapy: (Recorded:16Sep2012) to 4. Omeprazole 20 MG Oral Capsule Delayed Release; TAKE ONE CAPSULE BY MOUTH EVERY DAY; Therapy: 15Jan2012 to (Evaluate:[id number]) Requested for: 16Sep2012; Last Rx:30Apr2012 5. TraZODone HCl 50 MG Oral Tablet; TAKE 1-2 TABLETS AT BEDTIME NEEDED; Therapy: 16Sep2012 to (Evaluate:14Apr2013) Requested for: 16Sep2012; Last Rx:16Sep2012 6. Xanax 0.25 MG Oral Tablet; TAKE TABLET PRN; Therapy: 15Jan2012 to Allergies 1. Actos TABS 2. Flexeril TABS 3. MetFORMIN HCl TABS 4. Norvasc TABS Vitals Signs [Data Includes: Current Encounter] Heart Rate: 72, Respiration: 16, Systolic: 126, Diastolic: 84, BMI Calculated: 37.17, BSA Calculated: 1.92, Height: 5 ft 2 in, Weight: 202 lb , O2 Saturation: 92 Physical Exam Constitutional General appearance: No acute [...] and/or varicosities: Normal. Musculoskeletal Gait and station: Normal. Digits and nails: Normal without clubbing or cyanosis. Active and passive range of motion of the lumbar spine: Forward flexion is full. Extension is limited to 5 degrees secondary to pain. Lumbar facet joint loading maneuvers are positive. Danny and Gaenslen space and negative. The range of motion of the hip joints is full and without pain. Muscle tone is normal. Muscle strength/tone: Normal. Neurologic Cranial nerves: Cranial nerves II-XII intact. Cortical function: Normal mental status. Reflexes: 2+ and symmetric. Straight leg raising test is negative. Femoral stress sign is negative.No clonus Babinski. Sensation: No sensory loss. Coordination: Normal finger to nose and heel to kennedy. Psychiatric Judgment and insight: Normal. Orientation to person, place, and time: Normal. Recent and remote memory: Intact. Mood and affect: Normal. Assessment 1. Lumbar radiculopathy. 2. Lumbar disc herniation. 3. Lumbar facet arthropathy 4. Morbid obesity. 5. Pre-diabetes. 6. Insomnia. Plan 1. Patient will be scheduled for left L4-L5 and left L5-S1 transforaminal epidural steroid injections. 2. Start a comprehensive physical therapy program immediately. 3. Start independent exercise program, particularly for aqua therapy immediately. 4. Continue Lyrica 75 mg twice a day. 5. Continue trazodone 50-100 mg each bedtime for insomnia. 6. Followup at [facility]. 7. Patient wishes to return to work after her next procedure. I have encouraged the patient to proceed with this. 8. The patient has been instructed to contact my office with any questions or difficulties. The patient understands the plan and agrees to proceed accordingly. cc: Nuris Stiles M.D. Signatures Electronically signed by : Bebeto Adams M.D.; Oct 17 2012 11:35AM (Author) documented in this encounter Plan of Treatment Upcoming Encounters Date Type Department Care Team (Late st Contact Info) Description 03/13/2024 2:45 PM EST Office Visit [facility] CARDIOLOGY [address] [facility] [place] [address] [place] [address] Pj Ace MD [address] [facility] [address] [facility] [address] [place] [address] documented as of this encounter Visit Diagnoses Not on filedocumented in this encounter Care Teams Histological Illustrator Relationship Specialty Start Date End Date Deepak Cortez MD PCP - General 12/31/14 12/12/16 documented as of this encounter
--- OUTSIDE RECORDS SUMMARY | 2024-02-20 09:20 | XMS_ITS | Encounter Summary ---
Author Organization [employer] [facility] [employer] Address [address] [place] [address] Care Team Providers Care Imaging Scheduler Name Role Phone Unavailable Primary Care Provider Unavailabl e Encounter Details Date Type Department Care Team (Late st Contact Info) Description 04/30/2019 Historic Encounter [address] [address] Provider, Luciano Bronson MD Social History Tobacco Use Types Packs/Day [...] Procedure Name Priority Date/Time Associated Diagnosis Comments GLUCOSE-POC Routine 04/30/2019 5:13 AM EST documented in this encounter Results * (ABNORMAL) Glucose, Point of Care (04/30/2019 5:13 AM EST) Glucose POC2 146(H) 70 - 110 mg/dL 04/30/2019 10:13 AM EST [facility] Traditional [facility] Practitioner [id number] 04/30/2019 10:13 AM EST [facility] Device SN [id number] 04/30/2019 10:13 AM EST [facility] Device Comment1 Notified Nurse RBV 04/30/2019 10:13 AM EST [facility] Blood 04/30/2019 5:13 AM EST 04/30/2019 10:20 AM EST [facility] Historical Provider POINT OF CARE TEST OR DERABLES Final Result [facility] [address] [phone] documented in this encounter Visit Diagnoses Not on filedocumented in this encounter
--- OUTSIDE RECORDS SUMMARY | 2024-02-20 09:20 | XMS_ITS | Encounter Summary ---
Author Organization [employer] Address [address] [place] [address] Care Team Providers Care Air Cargo Specialist Supervisor Name Role Phone Unavailable Primary Care Provider Unavailabl e Encounter Details Date Type Department Care Team (Late st Contact Info) Description 05/02/2019 Transcribed Document [facility] Neurology - [address] [facility] [address] [place] [address] Meliza Downs Jr., MD [address] [place] [address] [address] Social History Tobacco Use Types Packs/Day Years Used Date Smoking Tobacco: Never Assessed Comments Unknown Sex and Gender Information Value Date Recorded Sex Assigned at Not on file Legal Sex Female 6:01 PM CDT Gender Identity Not on file Sexual Orientation Not on file documented as of this encounter Miscellaneous Notes * Cerner Conversion Note - Meliza Downs Jr., MD - 05/02/2019 12:04 PM EST Patient: GERTRUDIS DALY Age: 63 Years Sex: Female : 1955 Subjective seen earlier today. no acute events overnight. Walked 380 feet with physical therapy yesterday. Leg pain may be slightly better but still moderate-severe. Has been using IS. Vital Signs T: 37.4 ??C TMIN: 36.8 ??C TMAX: 37.4 ??C HR: 70(Monitored) RR: 16 BP: 121/64 SpO2: 94% Oxygen Settings (Last) Oxygen Therapy Mode: Room air (05/01/19 16:58:00) Oxygen Flow Rate: 2 Liter/Min (04/29/19 11:20:00) Intake & Output Totals Last 24 Hours (7a-7a) Input Total: 480 mL Output Total: 2550 mL Balance: -2070 mL Physical Exam afvss now laying in bed, a/a/o. 4+/5 diffusely.3-4 left ankle nonfocal. Assessment/Plan POD 7 L3-L5 laminectomy with resection of cauda equina tumor- denies rehab. Dc home with home services today. flat or < 20 degrees as much as possible. monitor for leak. Continue PT. Keep goodman per urology. Placed scripts for lyrica, oxycodone, and muscle relaxant on chart. VTE Prophylaxis - Medical Heparin 5,000 Units, SubCutaneous, Inj, Q8H, Routine, Start 04/27/19 11:40:00 EST (MELIZA DOWNS) Sequential Compression Device Start: 04/25/19 17:44:00 EST, Bilateral, Continuous Order (MELIZA DOWNS) Sequential Compression Device Start: 04/25/19 8:22:00 EST, Bilateral, Continuous Order (MELIZA DOWNS) Medications alogliptin, 25 mg= 1 Tab, Oral, AC Breakfast Amitiza, 24 mcg= 1 Cap, Oral, BID bethanechol, 10 mg= 1 Tab, Oral, TID bisoprolol, 5 mg= 1 Tab, Oral, At Bedtime cloNIDine, 0.2 mg= 1 Tab, Oral, Q4H, PRN Colace, 100 mg= 1 Cap, Oral, Daily Dilaudid, 0.25 mg= 0.25 mL, IV Push, Q1H, PRN Dilaudid, 0.5 mg= 0.5 mL, IV Push, Q2H, PRN Diovan, 160 mg= 1 Tab, Oral, Daily Domperidone 10mg, 10 mg, Oral, QID Dulcolax Laxative, 10 mg= 1 Supp, Rectal, BID, PRN Dulcolax Laxative, 10 mg= 2 Tab, Oral, BID, PRN Dulcolax Laxative, 10 mg= 2 Tab, Oral, Daily Fleet Enema, 133 mL, Rectal, Daily, PRN Flexeril, 10 mg= 1 Tab, Oral, TID, PRN glimepiride, 4 mg= 1 Tab, Oral, Daily heparin, 5000 Units= 1 mL, SubCutaneous, Q8H hydrALAZINE, 10 mg= 0.5 mL, IV Push, Q6H, PRN insulin lispro sliding scale, Scale C:, SubCutaneous, AC and at Bedtime Invokana, 100 mg= 1 Tab, Oral, AC Breakfast Lyrica, 100 mg= 2 Cap, Oral, TID Metamucil [place] Smooth Texture Sugar Free, 1 Packet, Oral, Daily Milk of Magnesia 8% oral suspension, 30 mL, Oral, TID, PRN pantoprazole, 40 mg= 1 Tab, Oral, Daily Percocet 5/325 oral tablet, 1 Tab, Oral, Q4H, PRN Percocet 5/325 oral tablet, 2 Tab, Oral, Q4H, PRN Phenergan, 25 mg= 1 mL, IV Push, Q6H, PRN ProAir HFA, 2 Puff, Inhalation, QID, PRN Procardia XL, 60 mg= 1 Tab, Oral, Daily rOPINIRole, 1 mg= 1 Tab, Oral, At Bedtime simethicone, 40 mg= 0.6 mL, Oral, Q6H, PRN topiramate, 50 mg= 1 Cap, Oral, Daily, PRN traZODone, 50 mg= 1 Tab, Oral, At Bedtime, PRN Valium, 5 mg= 5 mL, Oral, Q6H, PRN Vitamin B6, 100 mg= 2 Tab, Oral, BID Zofran, 4 mg= 2 mL, IV Push, Q4H, PRN Lab Results Test Name Test Result Date/Time Sodium Level 137 mmol/L 05/02/2019 03:02 EST Potassium Level 3.9 mmol/L 05/02/2019 03:02 EST Chloride Level 104 mmol/L 05/02/2019 03:02 EST Carbon Dioxide Level 27 mmol/L 05/02/2019 03:02 EST Anion Gap 10 05/02/2019 03:02 EST Glucose Level 164 mg/dL (High) 05/02/2019 03:02 EST Blood Urea Nitrogen 17 mg/dL 05/02/2019 03:02 EST Creatinine Level 0.60 mg/dL 05/02/2019 03:02 EST eGFR >60 mL/min/1.73m2 05/02/2019 03:02 EST eGFR NonAfrican >60 mL/min/1.73m2 05/02/2019 03:02 EST Bun/Creatinine 28.3 (High) 05/02/2019 03:02 EST Calcium Level 9.0 mg/dL 05/02/2019 03:02 EST Device Comment 1 Protocols Followed 05/02/2019 05:17 EST Device Comment 1 Protocols Followed 05/01/2019 20:23 EST Device Comment 1 Protocols Followed 05/01/2019 15:30 EST Device Comment 1 Protocols Followed 05/01/2019 11:31 EST Glucose POC2 129 mg/dL (High) 05/02/2019 05:17 EST Glucose POC2 151 mg/dL (High) 05/01/2019 20:23 EST Glucose POC2 169 mg/dL (High) 05/01/2019 15:30 EST Glucose POC2 158 mg/dL (High) 05/01/2019 11:31 EST WBC 7.6 K/uL 05/02/2019 03:02 EST RBC 4.26 Million/uL 05/02/2019 03:02 EST Hgb 12.5 g/dL 05/02/2019 03:02 EST Hct 38.9 % 05/02/2019 03:02 EST MCV 91.3 fL 05/02/2019 03:02 EST MCH 29.3 pg 05/02/2019 03:02 EST MCHC 32.1 Gram/dL (Low) 05/02/2019 03:02 EST Platelet Count 317 K/uL 05/02/2019 03:02 EST MPV 10.8 fL 05/02/2019 03:02 EST RDW 13.7 % 05/02/2019 03:02 EST Neutrophil Percent Man 60 % 05/02/2019 03:02 EST Lymph Percent Man 24 % 05/02/2019 03:02 EST [place] Percent Man 8 % (High) 05/02/2019 03:02 EST Eos Percent Man 7 % (High) 05/02/2019 03:02 EST Baso Percent Man 1 % 05/02/2019 03:02 EST RBC Morphology Abnormal 05/02/2019 03:02 EST Anisocytosis 1+ (Abnormal) 05/02/2019 03:02 EST Hypochromia 1+ (Abnormal) 05/02/2019 03:[address] Estimate Adequate 05/02/2019 03:02 EST documented in this encounter Plan of Treatment Not on file documented as of this encounter Visit Diagnoses Not on filedocumented in this encounter
--- OUTSIDE RECORDS SUMMARY | 2024-02-20 09:20 | XMS_ITS | Encounter Summary ---
Author Organization [employer] Address [address] [place] [address] Care Team Providers Care Family Sociologist Name Role Phone Unavailable Primary Care Provider Unavailabl e Encounter Details Date Type Department Care Team (Late st Contact Info) Description 04/29/2019 Transcribed Document [address] [address] Provider, Luciano Bronson MD Social History Tobacco Use Types Packs/Day Years Used Date Smoking Tobacco: Never Assessed Comments Unknown Sex and Gender Information Value Date Recorded Sex Assigned at Not on file Legal Sex Female 6:01 PM CDT Gender Identity Not on file Sexual Orientation Not on file documented as of this encounter Miscellaneous Notes * Cerner Conversion Note - [facility] Aiyana ProviderMD - 04/29/2019 4:24 PM EST On Going Discharge Planning Entered On: 04/29/2019 15:26 EST Performed On: 04/29/2019 15:24 EST by ROMELIA MCADAMS RN-Integrity AssessorConcrete Rod Buster Progress Note Discharge Arrangements : Patient Post-Acute Information Patient Name: GERTRUDIS DALY Gender: Female : [birth year] Age: 63 Years No Post-Acute Placement(s) Listed No Post-Acute Service(s) Listed No Curaspan Referral(s) Listed Discharge Options Discussed with Patient : Short term rehabilitation Barriers to Discharge Identified : Clinical Condition of Patient Barriers to Discharge Unresolved : Clinical Condition of Patient Is the Patient Meeting Medical Necessity : Yes ROMELIA CMADAMS RN-Integrity Assessor - 04/29/2019 15:24 EST Narrative Progress Note Narrative Progress Note : Urology consulted for neurogenic bladder. Pt's choices of [facility] and [facility] are not in network with pt's payor source. D/W pt at bedside. She has chose [facility] now. Referral sent via Tc and informed Colleene. Precert intitated for acute. CM will continue to follow. ROMELIA MCADAMS, RN-Integrity Assessor - 04/29/2019 15:24 EST Electronically signed by Carito, [facility] Conversion Tobacco Drier Operator Cerner at 08/23/2022 11:18 AM CDT documented in this encounter Plan of Treatment Not on file documented as of this encounter Visit Diagnoses Not on filedocumented in this encounter
--- OUTSIDE RECORDS SUMMARY | 2024-02-20 09:20 | XMS_ITS | Encounter Summary ---
Author Organization [employer] Address [address] [place] [address] Care Team Providers Care Legal Secretary Name Role Phone Unavailable Primary Care Provider Unavailabl e Encounter Details Date Type Department Care Team (Late st Contact Info) Description 04/29/2019 Transcribed Document [facility] [address] [place] [address] Provider, Luciano Bronson MD Social History Tobacco Use Types Packs/Day Years Used Date Smoking Tobacco: Never Assessed Comments Unknown Sex and Gender Information Value Date Recorded Sex Assigned at Not on file Legal Sex Female 6:01 PM CDT Gender Identity Not on file Sexual Orientation Not on file documented as of this encounter Miscellaneous Notes * Cerner Conversion Note - [facility] Aiyana ProviderMD - 04/29/2019 10:39 AM EST Patient: GERTRUDIS DALY Age: 63 Years Sex: Female : 1955 Chief Complaint low back and BLE numbness/weakness Reason for Consultation urinary retention History of Present Illness Ms. Daly is a 63yo female with long history of back pain who underwent lumbar laminectomy and removal of cauda equina mass on 04/25/19. She now has urinary retention, failing one voiding trial 04/27 with retention of 1500cc on straight cath. She has indwelling catheter in currently with good UOP. Patient has h/o recurrent nephrolithiasis and occasional UTI. Sees Dr. Jones Ruiz. Patient reports no issues urinating prior to her recent back surgery. She had BOWEN but incontinence has not been an issue since her urethral sling ~2001. She has had issues with chronic constipation and difficulty defecating for years. Has not had bm since prior to surgery. She is gaining some LE movement. Review of Systems All negative except as stated above in HPI. Vital Signs T: 37.1 ??C TMIN: 36.7 ??C TMAX: 37.4 ??C HR: 86(Monitored) RR: 16 BP: 114/60 SpO2: 91% Oxygen Settings (Last) Oxygen Therapy Mode: Nasal cannula (04/28/19 20:53:00) Oxygen Flow Rate: 2 Liter/Min (04/28/19 20:53:00) Physical Exam Gen: NAD, resting comfortably in bed HEENT: atraumatic, normocephalic, EOMI Resp: nonlabored breathing on RA : goodman in place draining clear yellow urine Skin: warm and dry Psych: nml mood and affect Assessment/Plan 63yo female with urinary retention s/p cauda equina mass resection and lumbar laminectomy. We discussed the spinal cord connection with bowel and bladder function, and the dynamic process of bladder recovery. We discussed indwelling catheterization and clean intermittent catheterization, highlighting the benefits of CIC. For now, the patient would like to continue indwelling catheterization while regains perineal sensation. She understands the benefits of CIC and is willing to learn in the future. - patient would like to continue indwelling catheter for the immediate future - provide goodman teaching and leg bag at discharge - recommend voiding trial in 5-7d with implementation of in/out catheterization q6h if fails - recommend aggressive bowel regimen - follow-up with Dr. Femi Ruiz in 3-4 weeks Benign neoplasm of spinal cord, Benign neoplasm of spinal cord VTE Prophylaxis - Medical Heparin 5,000 Units, SubCutaneous, Inj, Q8H, Routine, Start 04/27/19 11:40:00 EST (MELIZA DOWNS) Sequential Compression Device Start: 04/25/19 17:44:00 EST, Bilateral, Continuous Order (MELIZA DOWNS) Sequential Compression Device Start: 04/25/19 8:22:00 EST, Bilateral, Continuous Order (MELIZA DOWNS) Provider Information Primary Care Physician - LULY URIBE NP-INT Attending Physician - MELIZA DOWNS MD-SNU Admitting Physician - MELIZA DOWNS MD-SNU Consulting Physician - ADRIAN RESENDIZ MD-ANS Consulting Physician - HALLE ODELL MD-ANS Consulting Physician - ALVERTO DIMAS MD-INT - medical environmental management specialist Physician - MACK FAYE MD Referring Physician - ALIZE, NOT LISTED Problem List/Past Medical History Ongoing Allergic rhinitis Asthma- allergy induced Back pain Bronchitis Bursitis Chronic constipation Diabetes mellitus type II Dizziness Elevated liver enzymes Gastroparesis GERD - Gastro-esophageal reflux disease Hard of hearing High blood pressure History of obstructive sleep apnea Hyperlipidemia Irregular heartbeat Leg pain, left Migraine Panic attack Renal calculus Restless legs syndrome Sinusitis Sleep apnea SOB (shortness of breath) with anxiety Urinary tract infection Historical Endometriosis Procedure/Surgical History back surgery x 3, bladder sling, colonoscopy, hysterectomy, left elbow, lumbar discectomy- 2004 & 2012, spinal cord stimulator X2 and removal. SN - Proc - Procedure: Lumbar Laminectomy (04/25/19 12:44:43) Medications Inpatient alogliptin, 25 mg= 1 Tab, Oral, AC [...] 100 mg= 2 Cap, Oral, TID Metamucil [place] Smooth Texture Sugar Free, 1 Packet, Oral, [...] mg= 2 mL, IV Push, Q4H, PRN Home Amitiza, 24 mcg, Oral, BID bisoprolol, 5 mg, Oral, At Bedtime cyclobenzaprine, 10 mg, Oral, BID, PRN Domperidone, 10 mg, Oral, QID glimepiride, 4 mg, Oral, Daily Januvia, 100 mg, Oral, Daily Jardiance, 10 mg, Oral, QAM losartan, 100 mg, Oral, Daily NIFEdipine extended release, 60 mg, Oral, Daily omeprazole, 40 mg, Oral, Daily ProAir HFA 90 mcg/inh inhalation aerosol, 2 Puff, Inhalation, QID, PRN rOPINIRole, 1 mg, Oral, At Bedtime topiramate, 50 mg, Oral, Daily, PRN traMADol, 50 mg, Oral, TID, PRN traZODone, 50-100 mg, Oral, At Bedtime Vitamin B6, 100 mg, Oral, BID Allergies Hydrochlorothiazide-Metoprolol ER (Dry cough) Latex (Rash) Neurontin (Hallucinations) amLODIPine metFORMIN (Blurred vision) spironolactone (Actos) Social History Alcohol Alcohol Use Comment none. Substance Abuse Drug Use Hx: No. Use in Last 12 Months: No. Tobacco Never (less than 100 in lifetime) Smoking Status. Never Smokeless Tobacco Status. Lab Results Test Name Test Result Date/Time Device Comment 1 Notified Nurse RBV 04/29/2019 05:11 EST Device Comment 1 Notified Nurse RBV 04/28/2019 20:47 EST Device Comment 1 Notified Nurse RBV 04/28/2019 15:18 EST Device Comment 1 Notified Nurse RBV 04/28/2019 11:42 EST Glucose POC2 230 mg/dL (High) 04/29/2019 05:11 EST Glucose POC2 166 mg/dL (High) 04/28/2019 20:47 EST Glucose POC2 163 mg/dL (High) 04/28/2019 15:18 EST Glucose POC2 159 mg/dL (High) 04/28/2019 11:42 EST documented in this encounter Plan of Treatment Not on file documented as of this encounter Visit Diagnoses Not on filedocumented in this encounter
--- OUTSIDE RECORDS SUMMARY | 2024-02-20 09:20 | XMS_ITS | Encounter Summary ---
Author Organization [employer] Address [address] [place] [address] Care Team Providers Care Warping Mill Operator Name Role Phone Unavailable Primary Care Provider Unavailabl e Encounter Details Date Type Department Care Team (Late st Contact Info) Description 05/02/2019 Transcribed Document [address] [address] Provider, Luciano Bronson MD Social History Tobacco Use Types Packs/Day Years Used Date Smoking Tobacco: Never Assessed Comments Unknown Sex and Gender Information Value Date Recorded Sex Assigned at Not on file Legal Sex Female 6:01 PM CDT Gender Identity Not on file Sexual Orientation Not on file documented as of this encounter Miscellaneous Notes * Cerner Conversion Note - [facility] Aiyana ProviderMD - 05/02/2019 9:47 AM EST UM Authorization Entered On: 05/02/2019 8:49 EST Performed On: 05/02/2019 8:47 EST by Gali Newman Rn-Utilization Review Primary Insurance Authorization Authorization and Policy Numbers : Insurance 1 Health Plan: [employer] REPL Policy Number: [id number] Authorization Number: [id number] Insurance Primary Name : Mariela [id number] Authorization Status-Primary : Admit approved Authorization Number-Primary : [id number] Number of Days Authorized-Primary : 8 Day(s) Authorized Service Begin Date-Primary : 04/25/2019 EST Authorized Service End Date-Primary : 05/03/2019 EST Authorization Comments-Primary : c/s auth approved per brigette for 05/01 to 05/02. minh 05/03 Historical Authorization Comments-Primary : Comment 1: Authorized per fax 04/29/2019 @ 1530. Approved x5 days (6 total: 04/25-04/30). Next review due on 05/01/2019. Tameka Davidson, IAN. (Dayna Rios, Brake Adjuster 04/30/2019 07:06) Comment 2: clinical faxed per cerner for 04/27 and 04/28 (Gali Newman, Rn-Utilization Review 04/28/2019 15:19) Comment 3: call back from tameka lui with [employer] requesting clinical be faxed to [phone]. clinical faxed per cerner (Gali Newman, Rn-Utilization Review 04/28/2019 15:17) Comment 4: lvm with brigette lui with [employer] for c/s . acb (Gali Newman, Rn-Utilization Review 04/28/2019 13:51) Comment 5: clinicals faxed via cerner for cont stay (only 1 day approved) (BULMARO DUONG, RN-Utilization Review 04/26/2019 13:11) Comment 6: per [facility] inpt approved 1 day auth# [id number] (FRANCY MILIAN, Supervisor Billposting 04/24/2019 13:26) Gali Newman, Ian-Utilization Review - 05/02/2019 8:47 EST documented in this encounter Plan of Treatment Not on file documented as of this encounter Visit Diagnoses Not on filedocumented in this encounter
--- OUTSIDE RECORDS SUMMARY | 2024-02-20 09:20 | XMS_ITS | Encounter Summary ---
Author Organization [employer] Address [address] [place] [address] Care Team Providers Care Telephone Maintainer Name Role Phone Unavailable Primary Care Provider Unavailabl e Encounter Details Date Type Department Care Team (Late st Contact Info) Description 04/29/2019 Transcribed Document [facility] Neurology - [address] [facility] [address] [place] [address] eMliza Downs Jr., MD [address] [place] [address] [address] Social History Tobacco Use Types Packs/Day Years Used Date Smoking Tobacco: Never Assessed Comments Unknown Sex and Gender Information Value Date Recorded Sex Assigned at Not on file Legal Sex Female 6:01 PM CDT Gender Identity Not on file Sexual Orientation Not on file documented as of this encounter Miscellaneous Notes * Cerner Conversion Note - Meliza Downs Jr., MD - 04/29/2019 9:59 AM EST Patient: GERTRUDIS DALY Age: 63 Years Sex: Female : 1955 Subjective no acute events overnight. Walked 140 feet with physical therapy yesterday. Leg pain may be slightly better but still moderate-severe. Vital Signs T: 37.1 ??C TMIN: 36.7 ??C TMAX: 37.4 ??C HR: 86(Monitored) RR: 16 BP: 114/60 SpO2: 91% Oxygen Settings (Last) Oxygen Therapy Mode: Nasal cannula (04/28/19 20:53:00) Oxygen Flow Rate: 2 Liter/Min (04/28/19 20:53:00) Intake & Output Totals Last 24 Hours (7a-7a) Input Total: 1100 mL Output Total: 3800 mL Balance: -2700 mL Physical Exam laying in bed, sleepy. 4+/5 diffusely.3-4 left ankle nonfocal. silt Assessment/Plan POD 4- L3-L5 laminectomy with resection of cauda equina tumor- Continue heparin. flat or < 20 degrees as much as possible. monitor for leak. Continue PT. Will need rehab. [place] goodman. Urology to see today. VTE Prophylaxis - Medical Heparin 5,000 Units, [...] 100 mg= 2 Cap, Oral, TID Metamucil [place] Smooth Texture Sugar Free, 1 Packet, Oral, [...]
--- OUTSIDE RECORDS SUMMARY | 2024-02-20 09:20 | XMS_ITS | Referral Summary ---
Author Organization [employer] Address [address] [place], [place] [address] Care Team Providers Care Inorganic Chemistry Teacher Name Role Phone Unavailable Primary Care Provider [...]
--- OUTSIDE RECORDS SUMMARY | 2024-02-20 09:20 | XMS_ITS | Encounter Summary ---
Author Organization [employer] Address [address] [place] [address] Care Team Providers Care Rail Washer Name Role Phone Unavailable Primary Care Provider Unavailabl e Encounter Details Date Type Department Care Team (Late st Contact Info) Description 04/29/2019 Historic Encounter [address] [address] Provider, Luciano Bronson MD Social [...] Priority Date/Time Associated Diagnosis Comments GLUCOSE-POC Routine 04/29/2019 7:27 PM EST documented in this encounter Results * (ABNORMAL) Glucose, Point of Care (04/29/2019 7:27 PM EST) Glucose POC2 167(H) 70 - 110 mg/dL 04/30/2019 12:27 AM EST [facility] Cardiac Monitor [id number] 04/30/2019 12:27 AM EST [facility] Device SN [id number] 04/30/2019 12:27 AM EST [facility] Device Comment1 Protocols Followed 04/30/2019 12:27 AM EST [facility] Blood 04/29/2019 7:27 PM EST 04/30/2019 12:30 AM EST [facility] Historical Provider POINT OF CARE TEST OR DERABLES Final Result [facility] [address] [phone] documented in this encounter Visit Diagnoses Not on filedocumented in this encounter
--- OUTSIDE RECORDS SUMMARY | 2024-02-20 09:20 | XMS_ITS | Encounter Summary ---
Author Organization [employer] Address [address] [place] [address] Care Team Providers Care Carrier Packer Name Role Phone Unavailable Primary Care Provider Unavailabl e Encounter Details Date Type Department Care Team (Late st Contact Info) Description 04/30/2019 Historic Encounter [facility] [address] [place] [address] Provider, Luciano Bronson MD Social History [...] Name Priority Date/Time Associated Diagnosis Comments MAGNESIUM LEVEL ([facility] DATA CONV) Routine 04/30/2019 3:51 AM EST documented in this encounter Results * MAGNESIUM LEVEL ([facility] DATA CONV) (04/30/2019 3:51 AM EST) Magnesium Level 2.3 1.5 - 2.4 mg/dL 04/30/2019 3:53 PM EST Blood 04/30/2019 3:51 AM EST 04/30/2019 3:36 PM EST us [facility] Historical Provider LAB BLOOD ORDERABLES Final Result [facility] [address] [place] [address], [facility] [phone] documented in this encounter Visit Diagnoses Not on filedocumented in this encounter
--- OUTSIDE RECORDS SUMMARY | 2024-02-20 09:20 | XMS_ITS | Encounter Summary ---
Author Organization [employer] Address [address] [place] [address] Care Team Providers Care Tassel Clipper Name Role Phone Unavailable Primary Care Provider Unavailabl e Encounter Details Date Type Department Care Team (Late st Contact Info) Description 05/02/2019 Historic Encounter [address] [address] Provider, Luciano Bronson MD Social [...] Priority Date/Time Associated Diagnosis Comments GLUCOSE-POC Routine 05/02/2019 5:17 AM EST documented in this encounter Results * (ABNORMAL) Glucose, Point of Care (05/02/2019 5:17 AM EST) Glucose POC2 129(H) 70 - 110 mg/dL 05/02/2019 10:17 AM EST [facility] Dross Skimmer [id number] 05/02/2019 10:17 AM EST [facility] Device SN [id number] 05/02/2019 10:17 AM EST [facility] Device Comment1 Protocols Followed 05/02/2019 10:17 AM EST [facility] Blood 05/02/2019 5:17 AM EST 05/02/2019 10:20 AM EST [facility] Historical Provider POINT OF CARE TEST OR DERABLES Final Result [facility] [address] [phone] documented in this encounter Visit Diagnoses Not on filedocumented in this encounter
--- OUTSIDE RECORDS SUMMARY | 2024-02-20 09:20 | XMS_ITS | Encounter Summary ---
Author Organization [employer] Address [address] [place] [address] Care Team Providers Care Time Clock Mechanic Name Role Phone Unavailable Primary Care Provider Unavailabl e Encounter Details Date Type Department Care Team (Late st Contact Info) Description 05/01/2019 Historic Encounter [address] [address] Provider, Luciano Bronson MD Social [...] Name Priority Date/Time Associated Diagnosis Comments CBC W/ AUTO DIFF ([facility] BK DATA CONV) Routine 05/01/2019 3:10 AM EST documented in this encounter Results * CBC W/ AUTO DIFF ([facility] BKR DATA CONV) (05/01/2019 3:10 AM EST) WBC 8.3 4.5 - 10.5 K/uL 05/01/2019 9:57 AM EST RBC 4.29 3.93 - 5.22 Million/uL 05/01/2019 9:57 AM EST Hgb 12.6 11.2 - 15.7 g/dL 05/01/2019 9:57 AM EST Hct 38.9 34.1 - 44.9 % 05/01/2019 9:57 AM EST MCV 90.7 79.0 - 94.8 fL 05/01/2019 9:57 AM EST MCH 29.4 25.6 - 32.2 pg 05/01/2019 9:57 AM EST MCHC 32.4 32.2 - 36.5 Gram/dL 05/01/2019 9:57 AM EST RDW 13.3 11.7 - 14.9 % 05/01/2019 9:57 AM EST Platelet Count 294 163 - 369 K/uL 05/01/2019 9:57 AM EST MPV 11.4 9.4 - 12.4 fL 05/01/2019 9:57 AM EST Slide Review No 05/01/2019 9:57 AM EST Blood 05/01/2019 3:10 AM EST 05/01/2019 9:49 AM EST [facility] Historical Provider LAB BLOOD ORDERABLES Final Result [facility] [address] [phone] documented in this encounter Visit Diagnoses Not on filedocumented in this encounter
--- OUTSIDE RECORDS SUMMARY | 2024-02-20 09:20 | XMS_ITS | Encounter Summary ---
Author Organization [employer] Address [address] [place] [address] Care Team Providers Care Agency Service Coordinator Name Role Phone Unavailable Primary Care Provider Unavailabl e Encounter Details Date Type Department Care Team (Late st Contact Info) Description 04/29/2019 Historic Encounter [address] [address] Provider, Luciano Bronson MD Social [...] Date/Time Associated Diagnosis Comments GLUCOSE-POC Routine 04/29/2019 5:11 AM EST documented in this encounter Results * (ABNORMAL) Glucose, Point of Care (04/29/2019 5:11 AM EST) Glucose POC2 230(H) 70 - 110 mg/dL 04/29/2019 10:11 AM EST [facility] Screen Repairer Crusher [id number] 04/29/2019 10:11 AM EST [facility] Device SN [id number] 04/29/2019 10:11 AM EST [facility] Device Comment1 Notified Nurse RBV 04/29/2019 10:11 AM EST [facility] Blood 04/29/2019 5:11 AM EST 04/29/2019 10:15 AM EST [facility] Historical Provider POINT OF CARE TEST OR DERABLES Final Result [facility] [address] [phone] documented in this encounter Visit Diagnoses Not on filedocumented in this encounter
--- OUTSIDE RECORDS SUMMARY | 2024-02-20 09:20 | XMS_ITS | Encounter Summary ---
Author Organization [employer] Address [address] [place] [address] Care Team Providers Care Wire Drawer Name Role Phone Unavailable Primary Care Provider Unavailabl e Encounter Details Date Type Department Care Team (Late st Contact Info) Description 04/30/2019 Historic Encounter [address] [address] Provider, Luciano Bronson MD Social [...] Date/Time Associated Diagnosis Comments GLUCOSE-POC Routine 04/30/2019 3:37 PM EST documented in this encounter Results * (ABNORMAL) Glucose, Point of Care (04/30/2019 3:37 PM EST) Glucose POC2 150(H) 70 - 110 mg/dL 04/30/2019 8:37 PM EST [facility] Glassware Verifier [id number] 04/30/2019 8:37 PM EST [facility] Device SN [id number] 04/30/2019 8:37 PM EST [facility] Device Comment1 Notified Nurse RBV 04/30/2019 8:37 PM EST [facility] Blood 04/30/2019 3:37 PM EST 04/30/2019 8:40 PM EST [facility] Historical Provider POINT OF CARE TEST OR DERABLES Final Result [facility] [address] [phone] documented in this encounter Visit Diagnoses Not on filedocumented in this encounter
--- OUTSIDE RECORDS SUMMARY | 2024-02-20 09:20 | XMS_ITS | Encounter Summary ---
Author Organization [employer] Address [address] [place] [address] Care Team Providers Care Sole Molder Name Role Phone Unavailable Primary Care Provider Unavailabl e Encounter Details Date Type Department Care Team (Late st Contact Info) Description 04/29/2019 Historic Encounter [address] [address] Provider, Luciano Bronson MD Social [...] Procedure Name Priority Date/Time Associated Diagnosis Comments AUTOMATED DIFFERENTIAL ([facility] DATA CONV) Routine 04/29/2019 9:11 AM EST documented in this encounter Results * (ABNORMAL) AUTOMATED DIFFERENTIAL ([facility] BKR DATA CONV) (04/29/2019 9:11 AM EST) Neut% 72.1(H) 34.0 - 71.0 % 04/29/2019 2:34 PM EST Lymph% 16.4(L) 19.3 - 53.1 % 04/29/2019 2:34 PM EST [place]% 7.8 3.0 - 9.0 % 04/29/2019 2:34 PM EST Eos% 2.6 0.0 - 7.0 % 04/29/2019 2:34 PM EST Baso% 0.8 0.0 - 1.5 % 04/29/2019 2:34 PM EST IG% 0.30 0.00 - 0.60 % 04/29/2019 2:34 PM EST Neut# 6.59(H) 1.56 - 6.13 K/uL 04/29/2019 2:34 PM EST Lymph# 1.50 1.00 - 3.90 x10(3)/uL 04/29/2019 2:34 PM EST [place]# 0.71 0.16 - 1.00 K/uL 04/29/2019 2:34 PM EST Eos# 0.24 0.00 - 0.80 x10(3)/uL 04/29/2019 2:34 PM EST Baso# 0.07 0.00 - 0.20 x10(3)/uL 04/29/2019 2:34 PM EST IG# 0.03 0.00 - 0.05 x10(3)/uL 04/29/2019 2:34 PM EST Blood 04/29/2019 9:11 AM EST 04/29/2019 2:26 PM EST Narrative [facility] - 04/29/2019 2:46 PM EST Added by Discern Expert [facility] Historical Provider LAB BLOOD ORDERABLES Final Result [facility] 1 [place] [address], [place] [phone] documented in this encounter Visit Diagnoses Not on filedocumented in this encounter
--- OUTSIDE RECORDS SUMMARY | 2024-02-20 09:20 | XMS_ITS | Encounter Summary ---
Author Organization [employer] Address [address] [place] [address] Care Team Providers Care Surface Boss Name Role Phone Unavailable Primary Care Provider Unavailabl e Encounter Details Date Type Department Care Team (Late st Contact Info) Description 05/02/2019 Transcribed Document [address] [address] Provider [facility] MD Aiyana Social History Tobacco Use Types Packs/Day Years Used Date Smoking Tobacco: Never Assessed Comments Unknown Sex and Gender Information Value Date Recorded Sex Assigned at Not on file Legal Sex Female 6:01 PM CDT Gender Identity Not on file Sexual Orientation Not on file documented as of this encounter Miscellaneous Notes * Cerner Conversion Note - [facility] Aiyana ProviderMD - 05/02/2019 1:41 PM EST Stroke/Warfarin Instructions Entered On: 05/02/2019 12:41 EST Performed On: 05/02/2019 12:41 EST by Ericka Wharton RN Stroke/Warfarin Instructions Stroke/TIA Discharge Ins : N/A Warfarin Discharge Ins : N/A Ericka Wharton RN - 05/02/2019 12:41 EST Electronically signed by Carito [facility] Conversion Crop Grain Or Livestock Farm Manager Cerner at 08/23/2022 11:19 AM CDT documented in this encounter Plan of Treatment Not on file documented as of this encounter Visit Diagnoses Not on filedocumented in this encounter
--- OUTSIDE RECORDS SUMMARY | 2024-02-20 09:20 | XMS_ITS | Encounter Summary ---
Author Organization [employer] Address [address] [place] [address] Care Team Providers Care Nurse Staff [facility] Name Role Phone Unavailable Primary Care Provider Unavailabl e Encounter Details Date Type Department Care Team (Late st Contact Info) Description 05/01/2019 Transcribed Document [address] [address] Provider, Luciano Bronson MD Social History Tobacco Use Types Packs/Day Years Used Date Smoking Tobacco: Never Assessed Comments Unknown Sex and Gender Information Value Date Recorded Sex Assigned at Not on file Legal Sex Female 6:01 PM CDT Gender Identity Not on file Sexual Orientation Not on file documented as of this encounter Miscellaneous Notes * Cerner Conversion Note - [facility] Aiyana ProviderMD - 05/01/2019 12:50 PM EST Discharge Summary, PT Entered On: 05/01/2019 11:56 EST Performed On: 05/01/2019 11:50 EST by YOANNA GUERRERO PT Discharge Summary Discharge Summary Provider Notified : Nursing, Physical Therapy Reason for Discharge : All goals met Discharge Equipment Comment : Rolling walker would be good for patient Discharge Summary Comment, PT : Patient has achieved all PT goals and is no longer in need of skilled PT services while in the hospital. YOANNA GUERRERO, PT - 05/01/2019 11:50 EST Short Term Goals Mobility/Bed Mobility STG PT Grid Goal #1 Goal #2 Activity : Supine to sit Sit to stand Assist : Assist, minimal Assist, moderate Equipment : Rail, bed Walker, front wheel Date to Meet : 05/03/2019 EST 05/03/2019 EST Goal Status : Goal met Goal met Date Met : 04/28/2019 EST 04/27/2019 EST YOANNA GUERRERO, PT - 05/01/2019 11:50 EST YOANNA GUERRERO, PT - 05/01/2019 11:50 EST Ambulation STG Grid Goal #1 Device : Walker, front wheel Distance : 25' Assist : Assist, minimal Date to Meet : 05/03/2019 EST Goal Status : Goal met Date Met : 04/27/2019 EST YOANNA GUERRERO, PT - 05/01/2019 11:50 EST [facility] Goals Mobility/Bed Mobility LTG PT Grid Goal #1 Goal #2 Activity : Supine to sit Sit to stand Assist : Independent, modified Supervision or set-up Equipment : Rail, bed Walker, front wheel Date to Meet : 05/10/2019 EST 05/10/2019 EST Goal Status : Goal met Goal met Date Met : 04/28/2019 EST 04/28/2019 EST YOANNA GUERRERO, PT - 05/01/2019 11:50 EST YOANNA GUERRERO, PT - 05/01/2019 11:50 EST Ambulation LTG Grid Goal #1 Device : Walker, front wheel Distance : 200' Assist : Supervision or set-up Date to Meet : 05/10/2019 EST Goal Status : Goal met Date Met : 04/30/2019 EST YOANNA GUERRERO, PT - 05/01/2019 11:50 EST documented in this encounter Plan of Treatment Not on file documented as of this encounter Visit Diagnoses Not on filedocumented in this encounter
--- OUTSIDE RECORDS SUMMARY | 2024-02-20 09:20 | XMS_ITS | Encounter Summary ---
Author Organization [employer] Address [address] [place] [address] Care Team Providers Care Instrument And Control Technician Name Role Phone Unavailable Primary Care Provider Unavailabl e Encounter Details Date Type Department Care Team (Late st Contact Info) Description 05/02/2019 Historic Encounter [address] [address] Provider, Luciano Bronson MD Social [...] Associated Diagnosis Comments CBC W/ AUTO DIFF ([facility] BK DATA CONV) Routine 05/02/2019 3:02 AM EST documented in this encounter Results * (ABNORMAL) CBC W/ AUTO DIFF ([facility] BKR DATA CONV) (05/02/2019 3:02 AM EST) WBC 7.6 4.5 - 10.5 K/uL 05/02/2019 8:32 AM EST RBC 4.26 3.93 - 5.22 Million/uL 05/02/2019 8:32 AM EST Hgb 12.5 11.2 - 15.7 g/dL 05/02/2019 8:32 AM EST Hct 38.9 34.1 - 44.9 % 05/02/2019 8:32 AM EST MCV 91.3 79.0 - 94.8 fL 05/02/2019 8:32 AM EST MCH 29.3 25.6 - 32.2 pg 05/02/2019 8:32 AM EST MCHC 32.1(L) 32.2 - 36.5 Gram/dL 05/02/2019 8:32 AM EST RDW 13.7 11.7 - 14.9 % 05/02/2019 8:32 AM EST Platelet Count 317 163 - 369 K/uL 05/02/2019 8:32 AM EST MPV 10.8 9.4 - 12.4 fL 05/02/2019 8:32 AM EST Blood 05/02/2019 3:02 AM EST 05/02/2019 8:28 AM EST [facility] Historical Provider LAB BLOOD ORDERABLES Final Result [facility] [address] [phone] documented in this encounter Visit Diagnoses Not on filedocumented in this encounter
--- OUTSIDE RECORDS SUMMARY | 2024-02-20 09:20 | XMS_ITS | Encounter Summary ---
Author Organization [employer] Address [address] [place] [address] Care Team Providers Care Family Court Registrar Name Role Phone Unavailable Primary Care Provider Unavailabl e Encounter Details Date Type Department Care Team (Late st Contact Info) Description 04/28/2019 Transcribed Document [address] [address] Provider, Luciano Bronson MD Social History Tobacco Use Types Packs/Day Years Used Date Smoking Tobacco: Never Assessed Comments Unknown Sex and Gender Information Value Date Recorded Sex Assigned at Not on file Legal Sex Female 6:01 PM CDT Gender Identity Not on file Sexual Orientation Not on file documented as of this encounter Miscellaneous Notes * Cerner Conversion Note - yvon Bronson ProviderMD - 04/28/2019 4:17 PM EST [facility] Authorization Entered On: 04/28/2019 15:19 EST Performed On: 04/28/2019 15:17 EST by Gali Newman Rn-Utilization Review Primary Insurance Authorization Authorization and Policy Numbers : Insurance 1 Health Plan: [employer] MED[employer] REPL Policy Number: [id number] Authorization Number: [id number] Insurance Primary Name : Tanya ALLISON [id number] Authorization Status-Primary : Awaiting callback Authorization Number-Primary : [id number] Authorized Service Begin Date-Primary : 04/25/2019 EST Authorization Comments-Primary : call back from ten lui with tanya requesting clinical be faxed to [phone]. clinical faxed per faith Bronson Authorization Comments-Primary : Comment 1: lvm with brigette lui with tanya for c/s . acb (Gali Newman Rn-Utilization Review 04/28/2019 13:51) Comment 2: clinicals faxed via cerner for cont stay (only 1 day approved) (BULMARO DUONG, RN-Utilization Review 04/26/2019 13:11) Comment 3: per [facility] inpt approved 1 day auth# [id number] (FRANCY MILIAN, Hosiery Bagger 04/24/2019 13:26) Gali Newman Rn-Utilization Review - 04/28/2019 15:17 EST documented in this encounter Plan of Treatment Not on file documented as of this encounter Visit Diagnoses Not on filedocumented in this encounter
--- OUTSIDE RECORDS SUMMARY | 2024-02-20 09:20 | XMS_ITS | Encounter Summary ---
Author Organization [employer] Address [address] [place] [address] Care Team Providers Care Director Of Anesthesia Services Name Role Phone Unavailable Primary Care Provider Unavailabl e Encounter Details Date Type Department Care Team (Late st Contact Info) Description 04/30/2019 Historic Encounter [address] [address] Provider, Luciano Bronson MD Social [...] Priority Date/Time Associated Diagnosis Comments AUTOMATED DIFFERENTIAL ([facility] DATA CONV) Routine 04/30/2019 3:51 AM EST documented in this encounter Results * AUTOMATED DIFFERENTIAL ([facility] BKR DATA CONV) (04/30/2019 3:51 AM EST) Neut% 66.7 34.0 - 71.0 % 04/30/2019 10:25 AM EST Lymph% 20.7 19.3 - 53.1 % 04/30/2019 10:25 AM EST [place]% 7.0 3.0 - 9.0 % 04/30/2019 10:25 AM EST Eos% 4.4 0.0 - 7.0 % 04/30/2019 10:25 AM EST Baso% 0.7 0.0 - 1.5 % 04/30/2019 10:25 AM EST IG% 0.50 0.00 - 0.60 % 04/30/2019 10:25 AM EST Neut# 5.58 1.56 - 6.13 K/uL 04/30/2019 10:25 AM EST Lymph# 1.73 1.00 - 3.90 x10(3)/uL 04/30/2019 10:25 AM EST [place]# 0.59 0.16 - 1.00 K/uL 04/30/2019 10:25 AM EST Eos# 0.37 0.00 - 0.80 x10(3)/uL 04/30/2019 10:25 AM EST Baso# 0.06 0.00 - 0.20 x10(3)/uL 04/30/2019 10:25 AM EST IG# 0.04 0.00 - 0.05 x10(3)/uL 04/30/2019 10:25 AM EST Blood 04/30/2019 3:51 AM EST 04/30/2019 10:20 AM EST Narrative [facility] - 04/30/2019 10:26 AM EST Added by Discern Expert [facility] Historical Provider LAB BLOOD ORDERABLES Final Result [facility] [address] [phone] documented in this encounter Visit Diagnoses Not on filedocumented in this encounter
--- OUTSIDE RECORDS SUMMARY | 2024-02-20 09:20 | XMS_ITS | Encounter Summary ---
Author Organization [employer] Address [address] [place] [address] Care Team Providers Care Distribution Specialist Name Role Phone Unavailable Primary Care Provider Unavailabl e Encounter Details Date Type Department Care Team (Late st Contact Info) Description 05/02/2019 Historic Encounter [address] [address] Provider, Luciano Bronson MD Social [...] Date/Time Associated Diagnosis Comments GLUCOSE-POC Routine 05/02/2019 11:39 AM EST documented in this encounter Results * (ABNORMAL) Glucose, Point of Care (05/02/2019 11:39 AM EST) Glucose POC2 130(H) 70 - 110 mg/dL 05/02/2019 4:39 PM EST [facility] Program Development Manager [id number] 05/02/2019 4:39 PM EST [facility] Device SN [id number] 05/02/2019 4:39 PM EST [facility] Device Comment1 Notified Nurse RBV 05/02/2019 4:39 PM EST [facility] Blood 05/02/2019 11:3 9 AM EST 05/02/2019 4:45 PM EST [facility] Historical Provider POINT OF CARE TEST OR DERABLES Final Result [facility] [address] [phone] documented in this encounter Visit Diagnoses Not on filedocumented in this encounter
--- OUTSIDE RECORDS SUMMARY | 2024-02-20 09:20 | XMS_ITS | Encounter Summary ---
Author Organization [employer] Address [address] [place] [address] Care Team Providers Care Tool Checker Name Role Phone Unavailable Primary Care Provider Unavailabl e Encounter Details Date Type Department Care Team (Late st Contact Info) Description 04/29/2019 Historic Encounter [address] [address] Provider, Luciano Bronson MD Social [...] Date/Time Associated Diagnosis Comments GLUCOSE-POC Routine 04/29/2019 4:12 PM EST documented in this encounter Results * (ABNORMAL) Glucose, Point of Care (04/29/2019 4:12 PM EST) Glucose POC2 165(H) 70 - 110 mg/dL 04/29/2019 9:[address] [facility] [place] Truck Cleaner [id number] 04/29/2019 9:[address] [facility] [place] Device SN [id number] 04/29/2019 9:[address] [facility] [place] Device Comment1 Protocols Followed 04/29/2019 9:[address] [facility] [place] Blood 04/29/2019 4:12 PM EST 04/29/2019 9:15 PM EST [facility] Historical Provider POINT OF CARE TEST OR DERABLES Final Result [facility] [place] [address] [phone] documented in this encounter Visit Diagnoses Not on filedocumented in this encounter
--- OUTSIDE RECORDS SUMMARY | 2024-02-20 09:20 | XMS_ITS | Encounter Summary ---
Author Organization [employer] Address [address] [place] [address] Care Team Providers Care Pick Pulling Machine Operator Name Role Phone Unavailable Primary Care Provider Unavailabl e Encounter Details Date Type Department Care Team (Late st Contact Info) Description 04/30/2019 Historic Encounter [address] [address] Provider, Luciano Bronson MD Social [...] Date/Time Associated Diagnosis Comments GLUCOSE-POC Routine 04/30/2019 10:36 AM EST documented in this encounter Results * (ABNORMAL) Glucose, Point of Care (04/30/2019 10:36 AM EST) Glucose POC2 175(H) 70 - 110 mg/dL 04/30/2019 3:36 PM EST [facility] Principal Research Economist [id number] 04/30/2019 3:36 PM EST [facility] Device SN [id number] 04/30/2019 3:36 PM EST [facility] Device Comment1 Notified Nurse RBV 04/30/2019 3:36 PM EST [facility] Blood 04/30/2019 10:3 6 AM EST 04/30/2019 3:41 PM EST [facility] Historical Provider POINT OF CARE TEST OR DERABLES Final Result [facility] [address] [phone] documented in this encounter Visit Diagnoses Not on filedocumented in this encounter
--- OUTSIDE RECORDS SUMMARY | 2024-02-20 09:20 | XMS_ITS | Encounter Summary ---
Author Organization [employer] Address [address] [place] [address] Care Team Providers Care Concrete Journeyman Name Role Phone Unavailable Primary Care Provider Unavailabl e Encounter Details Date Type Department Care Team (Late st Contact Info) Description 05/01/2019 Historic Encounter [address] [address] Provider, Luciano Bronson MD Social [...] Priority Date/Time Associated Diagnosis Comments GLUCOSE-POC Routine 05/01/2019 8:23 PM EST documented in this encounter Results * (ABNORMAL) Glucose, Point of Care (05/01/2019 8:23 PM EST) Glucose POC2 151(H) 70 - 110 mg/dL 05/02/2019 1:23 AM EST [facility] Ironworker [id number] 05/02/2019 1:23 AM EST [facility] Device SN [id number] 05/02/2019 1:23 AM EST [facility] Device Comment1 Protocols Followed 05/02/2019 1:23 AM EST [facility] Blood 05/01/2019 8:23 PM EST 05/02/2019 1:26 AM EST [facility] Historical Provider POINT OF CARE TEST OR DERABLES Final Result [facility] [address] [phone] documented in this encounter Visit Diagnoses Not on filedocumented in this encounter
--- OUTSIDE RECORDS SUMMARY | 2024-02-20 09:20 | XMS_ITS | Encounter Summary ---
Author Organization [employer] Address [address] [place] [address] Care Team Providers Care Brewery Technician Name Role Phone Unavailable Primary Care Provider Unavailabl e Encounter Details Date Type Department Care Team (Late st Contact Info) Description 05/01/2019 Transcribed Document [address] [address] Provider, Luciano Bronson MD Social History Tobacco Use Types Packs/Day Years Used Date Smoking Tobacco: Never Assessed Comments Unknown Sex and Gender Information Value Date Recorded Sex Assigned at Not on file Legal Sex Female 6:01 PM CDT Gender Identity Not on file Sexual Orientation Not on file documented as of this encounter Miscellaneous Notes * Cerner Conversion Note - [facility] Aiyana ProviderMD - 05/01/2019 3:26 PM EST On Going Discharge Planning Entered On: 05/01/2019 14:26 EST Performed On: 05/01/2019 14:26 EST by MERLINE NEWMAN RN-Measurement TechnicianMobility Architect Progress Note Discharge Arrangements : Patient Post-Acute Information Patient Name: GERTRUDIS DALY Gender: Female : 57 Age: 63 Years No Post-Acute Placement(s) Listed No Post-Acute Service(s) Listed No [place] Referral(s) Listed Discharge Options Discussed with Patient : Short term rehabilitation Barriers to Discharge Identified : Clinical Condition of Patient Barriers to Discharge Unresolved : Clinical Condition of Patient MERLINE NEWMAN RN-Measurement Technician - 05/01/2019 14:26 EST Narrative Progress Note Narrative Progress Note : [facility] precert still pend Historical Progress Note : Urology consulted for neurogenic bladder. Pt's choices of [facility] and [facility] are not in network with pt's payor source. D/W pt at bedside. She has chose [facility] now. Referral sent via Tc and informed Colleene. Precert intitated for acute. CM will continue to follow. ROMELIA MCADAMS RN-Measurement Technician - 04/29/19 15:26:05 MERLINE NEWMAN, RN-Measurement Technician - 05/01/2019 14:26 EST Electronically signed by Carito [facility] Conversion Absence Management Consultant Cerner at 08/23/2022 11:19 AM CDT documented in this encounter Plan of Treatment Not on file documented as of this encounter Visit Diagnoses Not on filedocumented in this encounter
--- OUTSIDE RECORDS SUMMARY | 2024-02-20 09:20 | XMS_ITS | Encounter Summary ---
Author Organization [employer] Address [address] [place] [address] Care Team Providers Care Hospital Supervisor Name Role Phone Unavailable Primary Care Provider Unavailabl e Encounter Details Date Type Department Care Team (Late st Contact Info) Description 05/01/2019 Historic Encounter [address] [address] Provider, Luciano Bronson MD Social [...] Date/Time Associated Diagnosis Comments GLUCOSE-POC Routine 05/01/2019 6:22 AM EST documented in this encounter Results * (ABNORMAL) Glucose, Point of Care (05/01/2019 6:22 AM EST) Glucose POC2 123(H) 70 - 110 mg/dL 05/01/2019 11:22 AM EST [facility] Image Archivist [id number] 05/01/2019 11:22 AM EST [facility] Device SN [id number] 05/01/2019 11:22 AM EST [facility] Device Comment1 Notified Nurse RBV 05/01/2019 11:22 AM EST [facility] Blood 05/01/2019 6:22 AM EST 05/01/2019 11:26 AM EST [facility] Historical Provider POINT OF CARE TEST OR DERABLES Final Result [facility] [address] [phone] documented in this encounter Visit Diagnoses Not on filedocumented in this encounter
--- OUTSIDE RECORDS SUMMARY | 2024-02-20 09:20 | XMS_ITS | Encounter Summary ---
Author Organization [employer] Address [address] [place] [address] Care Team Providers Care Research Agricultural Engineer Name Role Phone Unavailable Primary Care Provider Unavailabl e Encounter Details Date Type Department Care Team (Late st Contact Info) Description 05/02/2019 Transcribed Document [facility] 1 [place] [address] ProviderLuciano MD Social History Tobacco Use Types Packs/Day Years Used Date Smoking Tobacco: Never Assessed Comments Unknown Sex and Gender Information Value Date Recorded Sex Assigned at Not on file Legal Sex Female 6:01 PM CDT Gender Identity Not on file Sexual Orientation Not on file documented as of this encounter Miscellaneous Notes * Cerner Conversion Note - [facility] Aiyana ProviderMD - 05/02/2019 1:32 PM EST Patient Education Materials Follows: Wound Infection A wound infection happens when germs start to grow in the wound. Germs that cause wound infections are most often bacteria. Other types of infections can occur as well. In some cases, infection can cause the wound to break open. Wound infections need treatment. If a wound infection is not treated, complications can happen. Follow these instructions at home: Medicines ??? Take or apply wbvc-spm-kdwnedk and prescription medicines only as told by your doctor. ??? If you were prescribed antibiotic medicine, take or apply it as told by your doctor. Do not stop using the antibiotic even if your condition improves. Wound care ??? Clean the wound each day or as told by your doctor. ? Wash the wound with mild soap and water. ? Rinse the wound with water to remove all soap. ? Pat the wound dry with a clean towel. Do not rub it. ??? Follow instructions from your doctor about how to take care of your wound. Make sure you: ? Wash your hands with soap and water before you change your bandage (dressing). If you cannot use soap and water, use hand rewind operator. ? Change your bandage as told by your doctor. ? Leave stitches (sutures), skin glue, or skin tape (adhesive) strips in place if your wound has been closed. They may need to stay in place for 2 weeks or longer. If tape strips get loose and curl up, you may trim the loose edges. Do not remove tape strips completely unless your doctor says it is okay. Some wounds are left open to heal on their own. ??? Check your wound every day for signs of infection. Watch for: ? More redness, swelling, or pain. ? More fluid or blood. ? Warmth. ? Pus or a bad smell. General instructions ??? Keep the bandage dry until your doctor says it can be removed. ??? Do not take baths, swim, use a hot tub, or do anything that would put your wound underwater until your doctor says it is okay. ??? Raise (elevate) the injured area above the level of your heart while you are sitting or lying down. ??? Do not scratch or pick at the wound. ??? Keep all follow-up visits as told by your doctor. This is important. Contact a doctor if: ??? Medicine does not help your pain. ??? You have more redness, swelling, or pain in the area of your wound. ??? You have more fluid or blood coming from your wound. ??? Your wound feels warm to the touch. ??? You have pus coming from your wound. ??? You continue to notice a bad smell coming from your wound or your bandage. ??? Your wound that was closed breaks open. Get help right away if: ??? You have a red streak going away from your wound. ??? You have a fever. This information is not intended to replace advice given to you by your health care provider. Make sure you discuss any questions you have with your health care provider. Document Released: 12/26/2008 Document Revised: 08/24/2016 Document Reviewed: 09/06/2015 [employer] Interactive Patient Education ? 2019 [employer] Orthopedics Laminectomy, Care After This sheet gives you information about how to care for yourself after your procedure. Your health care provider may also give you more specific instructions. If you have problems or questions, contact your health care provider. What can I expect after the procedure? After the procedure, it is common to have: ??? Some pain around your incision area. ??? Muscle tightening (spasms) across the back. Follow these instructions at home: Incision care ??? Follow instructions from your health care provider about how to take care of your incision area. Make sure you: ? Wash your hands with soap and water before and after you apply medicine to the area or change your bandage (dressing). If soap and water are not available, use hand rewind operator. ? Change your dressing as told by your health care provider. ? Leave stitches (sutures), skin glue, or adhesive strips in place. These skin closures may need to stay in place for 2 weeks or longer. If adhesive strip edges start to loosen and curl up, you may trim the loose edges. Do not remove adhesive strips completely unless your health care provider tells you to do that. ??? Check your incision area every day for signs of infection. Check for: ? More redness, swelling, or pain. ? More fluid or blood. ? Warmth. ? Pus or a bad smell. Medicines ??? Take ptwd-jef-rhcvjwq and prescription medicines only as told by your health care provider. ??? If you were prescribed an antibiotic medicine, use it as told by your health care provider. Do not stop using the antibiotic even if you start to feel better. Bathing ??? Do not take baths, swim, or use a hot tub for 2 weeks, or until your incision has healed completely. ??? If your health care provider approves, you may take showers after your dressing has been removed. Activity ??? Return to your normal activities as told by your health care provider. Ask your health care provider what activities are safe for you. ??? Avoid bending or twisting at your waist. Always bend at your knees. ??? Do not sit for more than 20?30 minutes at a time. Lie down or walk between periods of sitting. ??? Do not lift anything that is heavier than 10 lb (4.5 kg) or the limit that your health care provider tells you, until he or she says that it is safe. ??? Do not drive for 2 weeks after your procedure or for as long as your health care provider tells you. ??? Do not drive or use heavy machinery while taking prescription pain medicine. General instructions ??? To prevent or treat constipation while you are taking prescription pain medicine, your health care provider may recommend that you: ? Drink enough fluid to keep your urine clear or pale yellow. ? Take wthy-ddh-lisdcoo or prescription medicines. ? Eat foods that are high in fiber, such as fresh fruits and vegetables, whole grains, and beans. ? Limit foods that are high in fat and processed sugars, such as fried and sweet foods. ??? Do breathing exercises as told. ??? Keep all follow-up visits as told by your health care provider. This is important. Contact a health care provider if: ??? You have more redness, swelling, or pain around your incision area. ??? Your incision feels warm to the touch. ??? You are not able to return to activities or do exercises as told by your health care provider. Get help right away if: ??? You have: ? More fluid or blood coming from your incision area. ? Pus or a bad smell coming from your incision area. ? Chills or a fever. ? Episodes of dizziness or fainting while standing. ??? You develop a rash. ??? You develop shortness of breath or you have difficulty breathing. ??? You cannot control when you urinate or have a bowel movement. ??? You become weak. ??? You are not able to use your legs. Summary ??? After the procedure, it is common to have some pain around your incision area. You may also have muscle tightening (spasms) across the back. ??? Follow instructions from your health care provider about how to care for your incision. ??? Do not lift anything that is heavier than 10 lb (4.5 kg) or the limit that your health care provider tells you, until he or she says that it is safe. ??? Contact your health care provider if you have more redness, swelling, or pain around your incision area or if your incision feels warm to the touch. These can be signs of infection. This information is not intended to replace advice given to you by your health care provider. Make sure you discuss any questions you have with your health care provider. Document Released: 10/06/2005 Document Revised: 11/02/2016 Document Reviewed: 09/03/2016 [employer] Interactive Patient Education ? 2019 [employer] documented in this encounter Plan of Treatment Not on file documented as of this encounter Visit Diagnoses Not on filedocumented in this encounter
--- OUTSIDE RECORDS SUMMARY | 2024-02-20 09:20 | XMS_ITS | Encounter Summary ---
Author Organization [employer] Address [address] [place] [address] Care Team Providers Care Signal Tower Director Name Role Phone Unavailable Primary Care Provider Unavailabl e Encounter Details Date Type Department Care Team (Late st Contact Info) Description 05/02/2019 Historic Encounter [address] [address] Provider, Luciano Bronson MD Social [...] Procedure Name Priority Date/Time Associated Diagnosis Comments DIFFERENTIAL MANUAL ([facility] DATA CONV) Routine 05/02/2019 3:02 AM EST documented in this encounter Results * (ABNORMAL) DIFFERENTIAL MANUAL ([facility] BK DATA CONV) (05/02/2019 3:02 AM EST) RBC Morphology Abnormal 05/02/2019 8:[address] Estimate Adequate Adequate 05/02/2019 8:57 AM EST Neutrophil Percent Man 60 50 - 65 % 05/02/2019 8:57 AM EST Lymph Percent Man 24 24 - 44 % 05/02/2019 8:57 AM EST [place] Percent Man 8(H) 4 - 5 % 05/02/19 20 8:57 AM EST Eos Percent Man 7(H) 0 - 3 % 0 8:57 AM EST Baso Percent Man 1 0 - 1 % 05/02/19 20 8:57 AM EST Anisocytosis 1+(A) 05/02/2019 8:57 AM EST Hypochromia 1+(A) 05/02/2019 8:57 AM EST Blood 05/02/2019 3:02 AM EST 05/02/2019 8:28 AM EST Narrative [facility] - 05/02/2019 8:57 AM EST Ordered By Discern Expert [facility] Historical Provider LAB BLOOD ORDERABLES Final Result Performing Organization Address City/State/[facility] Co de Phone Number [facility] [address] [phone] documented in this encounter Visit Diagnoses Not on filedocumented in this encounter
--- OUTSIDE RECORDS SUMMARY | 2024-02-20 09:20 | XMS_ITS | Encounter Summary ---
Author Organization [employer] Address [address] [place] [address] Care Team Providers Care Tier In Name Role Phone Unavailable Primary Care Provider Unavailabl e Encounter Details Date Type Department Care Team (Late st Contact Info) Description 04/30/2019 Historic Encounter [address] [address] Provider, Luciano Bronson MD Social [...] Procedure Name Priority Date/Time Associated Diagnosis Comments [facility] BASIC METABOLIC PANEL ([facility] BK DATA CONV) Routine 04/30/2019 3:51 AM EST documented in this encounter Results * (ABNORMAL) [facility] BASIC METABOLIC PANEL ([facility] BKR DATA CONV) (04/30/2019 3:51 AM EST) Glucose Level 146(H) 74 - 106 mg/dL 04/30/2019 10:35 AM EST Comment: \.br\[facility] has become aware of sulfasalazine and sulfapyridine drug interference in the assays ALT, AST, T4, CKMB, glucose, and ammonia. The probability of misinterpretation of results for the assays is remote and would be limited to scenarios where a patient has taken the drug and had a blood sample drawn before clearance of the drug to a level that does not interfere with laboratory testing. Venipuncture should occur prior to administration of the drug. Blood Urea Nitrogen 16 7 - 22 mg/dL 04/30/2019 10:35 AM EST Creatinine Level 0.50(L) 0.55 - 1.02 mg/dL 04/30/2019 10:35 AM EST Sodium Level 138 136 - 146 mmol/L 04/30/2019 10:35 AM EST Potassium Level 3.4(L) 3.5 - 5.1 mmol/L 04/30/2019 10:35 AM EST Chloride Level 107 102 - 112 mmol/L 04/30/2019 10:35 AM EST Carbon Dioxide Level 27 21 - 32 mmol/L 04/30/2019 10:35 AM EST Anion Gap 7(L) 9 - 20 04/30/2019 10:35 AM EST Calcium Level 8.9 8.4 - 10.1 mg/dL 04/30/2019 10:35 AM EST Bun/Creatinine 32.0(H) 8.0 - 20.0 04/30/2019 10:35 AM EST eGFR NonAfrican >60 >=60 mL/min/1. 73m2 04/30/2019 10:35 AM EST Comment:GFR <60 suggests chr onic kidney disease, if found over 3 month period.\.br\GFR <15 indicates renal failure. eGFR >60 >=60 mL/min/1. 73m2 04/30/2019 10:35 AM EST Comment:GFR <60 suggests chr onic kidney disease, if found over 3 month period.\.br\GFR <15 indicates renal failure. Blood 04/30/2019 3:51 AM EST 04/30/2019 10:25 AM EST [facility] Historical Provider LAB BLOOD ORDERABLES Final Result [facility] [address] [place], [place] [address] [phone] documented in this encounter Visit Diagnoses Not on filedocumented in this encounter
--- OUTSIDE RECORDS SUMMARY | 2024-02-20 09:20 | XMS_ITS | Encounter Summary ---
Author Organization [employer] Address [address] [place] [address] Care Team Providers Care Meter Repair Shop Supervisor Name Role Phone Unavailable Primary Care Provider Unavailabl e Encounter Details Date Type Department Care Team (Late st Contact Info) Description 05/01/2019 Transcribed Document [facility] Neurology - [address] [facility] [address] [place] [address] Lane Ortiz Jr., MD [address] [place] [address] [address] Social History Tobacco Use Types Packs/Day Years Used Date Smoking Tobacco: Never Assessed Comments Unknown Sex and Gender Information Value Date Recorded Sex Assigned at Not on file Legal Sex Female 6:01 PM CDT Gender Identity Not on file Sexual Orientation Not on file documented as of this encounter Miscellaneous Notes * Cerner Conversion Note - Lane Ortiz Jr., MD - 05/01/2019 9:19 AM EST Patient: GERTRUDIS DALY Age: 63 Years Sex: Female : 1955 Subjective no acute events overnight. Walked 240 feet with physical therapy yesterday. Leg pain may be slightly better but still moderate-severe. Has been using IS. Vital Signs T: 37.5 ??C TMIN: 36.7 ??C TMAX: 37.5 ??C HR: 76(Monitored) RR: 16 BP: 113/64 SpO2: 95% Oxygen Settings (Last) Oxygen Therapy Mode: Room air (04/30/19 21:00:00) Oxygen Flow Rate: 2 Liter/Min (04/29/19 11:20:00) Physical Exam afvss now laying in bed, a/a/o. 4+/5 diffusely.3-4 left ankle nonfocal. Assessment/Plan POD 6 L3-L5 laminectomy with resection of cauda equina tumor- Continue heparin. flat or < 20 degrees as much as possible. monitor for leak. Continue PT. Acute rehab precert pending. Hopefully DC to rehab today. Keep goodman per urology. Placed scripts for lyrica, oxycodone, and muscle relaxant on chart. Medications alogliptin, 25 mg= 1 Tab, Oral, [...] 100 mg= 2 Cap, Oral, TID Metamucil [place] Smooth Texture Sugar Free, 1 Packet, Oral, [...] Test Result Date/Time Sodium Level 137 mmol/L 05/01/2019 03:10 EST Potassium Level 3.7 mmol/L 05/01/2019 03:10 EST Chloride Level 105 mmol/L 05/01/2019 03:10 EST Carbon Dioxide Level 28 mmol/L 05/01/2019 03:10 EST Anion Gap 8 (Low) 05/01/2019 03:10 EST Glucose Level 152 mg/dL (High) 05/01/2019 03:10 EST Blood Urea Nitrogen 18 mg/dL 05/01/2019 03:10 EST Creatinine Level 0.50 mg/dL (Low) 05/01/2019 03:10 EST eGFR >60 mL/min/1.73m2 05/01/2019 03:10 EST eGFR NonAfrican >60 mL/min/1.73m2 05/01/2019 03:10 EST Bun/Creatinine 36.0 (High) 05/01/2019 03:10 EST Calcium Level 9.1 mg/dL 05/01/2019 03:10 EST Device Comment 1 Notified Nurse RBV 05/01/2019 06:22 EST Device Comment 1 Notified Nurse RBV 04/30/2019 21:39 EST Device Comment 1 Notified Nurse RBV 04/30/2019 15:37 EST Device Comment 1 Notified Nurse RBV 04/30/2019 10:36 EST Glucose POC2 123 mg/dL (High) 05/01/2019 06:22 EST Glucose POC2 141 mg/dL (High) 04/30/2019 21:39 EST Glucose POC2 150 mg/dL (High) 04/30/2019 15:37 EST Glucose POC2 175 mg/dL (High) 04/30/2019 10:36 EST WBC 8.3 K/uL 05/01/2019 03:10 EST RBC 4.29 Million/uL 05/01/2019 03:10 EST Hgb 12.6 g/dL 05/01/2019 03:10 EST Hct 38.9 % 05/01/2019 03:10 EST MCV 90.7 fL 05/01/2019 03:10 EST MCH 29.4 pg 05/01/2019 03:10 EST MCHC 32.4 Gram/dL 05/01/2019 03:10 EST Platelet Count 294 K/uL 05/01/2019 03:10 EST MPV 11.4 fL 05/01/2019 03:10 EST RDW 13.3 % 05/01/2019 03:10 EST Neut % 64.7 % 05/01/2019 03:10 EST Neut # 5.39 K/uL 05/01/2019 03:10 EST Lymph % 22.8 % 05/01/2019 03:10 EST Lymph # 1.90 x10(3)/uL 05/01/2019 03:10 EST Mcdonough % 7.5 % 05/01/2019 03:10 EST Mcdonough # 0.62 K/uL 05/01/2019 03:10 EST Eos % 3.4 % 05/01/2019 03:10 EST Eos # 0.28 x10(3)/uL 05/01/2019 03:10 EST Baso % 1.0 % 05/01/2019 03:10 EST Baso # 0.08 x10(3)/uL 05/01/2019 03:10 EST Slide Review No 05/01/2019 03:10 EST IG# 0.05 x10(3)/uL 05/01/2019 03:10 EST IG% 0.60 % 05/01/2019 03:10 EST documented in this encounter Plan of Treatment Not on file documented as of this encounter Visit Diagnoses Not on filedocumented in this encounter
--- OUTSIDE RECORDS SUMMARY | 2024-02-20 09:20 | XMS_ITS | Encounter Summary ---
Author Organization [employer] Address [address] [place] [address] Care Team Providers Care Cardiology Clinical Consultant Name Role Phone Unavailable Primary Care Provider Unavailabl e Encounter Details Date Type Department Care Team (Late st Contact Info) Description 04/29/2019 Historic Encounter [address] [address] Provider, Luciano Bronson MD Social [...] Procedure Name Priority Date/Time Associated Diagnosis Comments [facility] BASIC METABOLIC PANEL ([facility] BK DATA CONV) Routine 04/29/2019 9:11 AM EST documented in this encounter Results * (ABNORMAL) [facility] BASIC METABOLIC PANEL ([facility] BKR DATA CONV) (04/29/2019 9:11 AM EST) Glucose Level 131(H) 74 - 106 mg/dL 04/29/2019 2:47 PM EST Comment: \.br\[facility] has become aware of sulfasalazine and [...] administration of the drug. Blood Urea Nitrogen 11 7 - 22 mg/dL 04/29/2019 2:47 PM EST Creatinine Level 0.50(L) 0.55 - 1.02 mg/dL 04/29/2019 2:47 PM EST Sodium Level 138 136 - 146 mmol/L 04/29/2019 2:47 PM EST Potassium Level 3.3(L) 3.5 - 5.1 mmol/L 04/29/2019 2:47 PM EST Chloride Level 104 102 - 112 mmol/L 04/29/2019 2:47 PM EST Carbon Dioxide Level 31 21 - 32 mmol/L 04/29/2019 2:47 PM EST Anion Gap 6(L) 9 - 20 04/29/2019 2:47 PM EST Calcium Level 8.8 8.4 - 10.1 mg/dL 04/29/2019 2:47 PM EST Bun/Creatinine 22.0(H) 8.0 - 20.0 04/29/2019 2:47 PM EST eGFR NonAfrican >60 >=60 mL/min/1. 73m2 04/29/2019 2:47 PM EST Comment:GFR <60 suggests chr onic kidney disease, if found over 3 month period.\.br\GFR <15 indicates renal failure. eGFR >60 >=60 mL/min/1. 73m2 04/29/2019 2:47 PM EST Comment:GFR <60 suggests chr onic kidney disease, if found over 3 month period.\.br\GFR <15 indicates renal failure. Blood 04/29/2019 9:11 AM EST 04/29/2019 2:26 PM EST [facility] Historical Provider LAB BLOOD ORDERABLES Final Result [facility] 1 [place], [place] [address] [phone] documented in this encounter Visit Diagnoses Not on filedocumented in this encounter
--- OUTSIDE RECORDS SUMMARY | 2024-02-20 09:20 | XMS_ITS | Encounter Summary ---
Author Organization [employer] Address [address] [place] [address] Care Team Providers Care Solutions Market Consultant Name Role Phone Unavailable Primary Care Provider Unavailabl e Encounter Details Date Type Department Care Team (Late st Contact Info) Description 05/02/2019 Historic Encounter [address] [address] Provider, Luciano Bronson MD Social [...] Procedure Name Priority Date/Time Associated Diagnosis Comments [facility] BASIC METABOLIC PANEL ([facility] BK DATA CONV) Routine 05/02/2019 3:02 AM EST documented in this encounter Results * (ABNORMAL) [facility] BASIC METABOLIC PANEL ([facility] BKR DATA CONV) (05/02/2019 3:02 AM EST) Glucose Level 164(H) 74 - 106 mg/dL 05/02/2019 8:44 AM EST Comment: \.br\[facility] has become aware of sulfasalazine and [...] administration of the drug. Blood Urea Nitrogen 17 7 - 22 mg/dL 05/02/2019 8:44 AM EST Creatinine Level 0.60 0.55 - 1.02 mg/dL 05/02/2019 8:44 AM EST Sodium Level 137 136 - 146 mmol/L 05/02/2019 8:44 AM EST Potassium Level 3.9 3.5 - 5.1 mmol/L 05/02/2019 8:44 AM EST Chloride Level 104 102 - 112 mmol/L 05/02/2019 8:44 AM EST Carbon Dioxide Level 27 21 - 32 mmol/L 05/02/2019 8:44 AM EST Anion Gap 10 9 - 20 05/02/2019 8:44 AM EST Calcium Level 9.0 8.4 - 10.1 mg/dL 05/02/2019 8:44 AM EST Bun/Creatinine 28.3(H) 8.0 - 20.0 05/02/2019 8:44 AM EST eGFR NonAfrican >60 >=60 mL/min/1. 73m2 05/02/2019 8:46 AM EST Comment:GFR <60 suggests chr onic kidney disease, if found over 3 month period.\.br\GFR <15 indicates renal failure. eGFR >60 >=60 mL/min/1. 73m2 05/02/2019 8:46 AM EST Comment:GFR <60 suggests chr onic kidney disease, if found over 3 month period.\.br\GFR <15 indicates renal failure. Blood 05/02/2019 3:02 AM EST 05/02/2019 8:34 AM EST [facility] Historical Provider LAB BLOOD ORDERABLES Final Result [facility] 1 [place] [id number] [phone] documented in this encounter Visit Diagnoses Not on filedocumented in this encounter
--- OUTSIDE RECORDS SUMMARY | 2024-02-20 09:20 | XMS_ITS | Encounter Summary ---
Author Organization [employer] Address [address] [place] [address] Care Team Providers Care Growth Hacker Name Role Phone Unavailable Primary Care Provider Unavailabl e Encounter Details Date Type Department Care Team (Late st Contact Info) Description 05/01/2019 Historic Encounter [address] [address] Provider, Luciano Bronson MD Social [...] Date/Time Associated Diagnosis Comments GLUCOSE-POC Routine 05/01/2019 11:31 AM EST documented in this encounter Results * (ABNORMAL) Glucose, Point of Care (05/01/2019 11:31 AM EST) Glucose POC2 158(H) 70 - 110 mg/dL 05/01/2019 4:31 PM EST [facility] Crane Mechanic [id number] 05/01/2019 4:31 PM EST [facility] Device SN [id number] 05/01/2019 4:31 PM EST [facility] Device Comment1 Protocols Followed 05/01/2019 4:31 PM EST [facility] Blood 05/01/2019 11:3 1 AM EST 05/01/2019 4:36 PM EST [facility] Historical Provider POINT OF CARE TEST OR DERABLES Final Result Performing Organization Address City/State/[facility] Co de Phone Number [facility] [address] [phone] documented in this encounter Visit Diagnoses Not on filedocumented in this encounter
--- OUTSIDE RECORDS SUMMARY | 2024-02-20 09:20 | XMS_ITS | Encounter Summary ---
Author Organization [employer] Address [address] [place] [address] Care Team Providers Care Bulk Pigment Reducer Name Role Phone Unavailable Primary Care Provider Unavailabl e Encounter Details Date Type Department Care Team (Late st Contact Info) Description 05/02/2019 Transcribed Document [address] [address] Provider, Luciano Bronson MD Social History Tobacco Use Types Packs/Day Years Used Date Smoking Tobacco: Never Assessed Comments Unknown Sex and Gender Information Value Date Recorded Sex Assigned at Not on file Legal Sex Female 6:01 PM CDT Gender Identity Not on file Sexual Orientation Not on file documented as of this encounter Miscellaneous Notes * Cerner Conversion Note - [facility] Aiyana ProviderMD - 05/02/2019 1:41 PM EST Final Discharge Planning Entered On: 05/02/2019 12:43 EST Performed On: 05/02/2019 12:41 EST by ROMELIA MCADAMS RN-Harvest Worker Fruit Final Discharge Planning Discharge Arrangements : Patient Post-Acute Information Patient Name: GERTRUDIS DALY Gender: Female : [birth year] Age: 63 Years No Post-Acute Placement(s) Listed No Post-Acute Service(s) Listed No Curaspan Referral(s) Listed Patient Offered Choice/Affiliations Explained : Yes Designation of Choice Signed : Yes Important Medicare Message Reviewed With : Patient Important Medicare Message Reviewed D/T : 05/02/2019 9:00 EST Follow Up Appointment Scheduled : Yes Is Patient High/Moderate Readmission Risk? : No Patient/Family Notified of Plan : Yes Support Person/Pt Rep Notified of Plan : Yes Is Patient Ready for Discharge? : Yes Physician Notified Patient is Ready for Discharge? : Yes Discharge To Care Management : Home Health Services (Related/SOC within 3 days)-06 ROMELIA MCADAMS RN-Harvest Worker Fruit - 05/02/2019 12:41 EST Final Narrative Note Final Narrative Note : Precrt denied for acute rehab at [facility]. PT dc'd pt yesterday stating she met all inpatient goals and ambulating 380ft. CM discussed with pt aND SPOUSE AT BEDSIDE.pT WILL LIKELY BE DENIED SUBACUTE WELL. 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 Mattie WITH vna WAS ABLE TO PLACE PT WITH aMEDYSIS. FRW and BSC obtained from [facility] and have been delivered. No other CM need identified. ROMELIA MCADAMS RN-Harvest Worker Fruit - 05/02/2019 12:41 EST Electronically signed by Carito [facility] Conversion Capping Machine Operator Cerner at 08/23/2022 11:19 AM CDT documented in this encounter Plan of Treatment Not on file documented as of this encounter Visit Diagnoses Not on filedocumented in this encounter
--- OUTSIDE RECORDS SUMMARY | 2024-02-20 09:20 | XMS_ITS | Encounter Summary ---
Author Organization [employer] Address [address] [place] [address] Care Team Providers Care Diesel Fitter Mechanic Name Role Phone Unavailable Primary Care Provider Unavailabl e Encounter Details Date Type Department Care Team (Late st Contact Info) Description 04/30/2019 Historic Encounter [address] [address] Provider, Luciano Bronson MD Social [...] Associated Diagnosis Comments CBC W/ AUTO DIFF ([facility] BK DATA CONV) Routine 04/30/2019 3:51 AM EST documented in this encounter Results * (ABNORMAL) CBC W/ AUTO DIFF ([facility] BKR DATA CONV) (04/30/2019 3:51 AM EST) WBC 8.4 4.5 - 10.5 K/uL 04/30/2019 10:25 AM EST RBC 4.28 3.93 - 5.22 Million/uL 04/30/2019 10:25 AM EST Hgb 12.6 11.2 - 15.7 g/dL 04/30/2019 10:25 AM EST Hct 39.3 34.1 - 44.9 % 04/30/2019 10:25 AM EST MCV 91.8 79.0 - 94.8 fL 04/30/2019 10:25 AM EST MCH 29.4 25.6 - 32.2 pg 04/30/2019 10:25 AM EST MCHC 32.1(L) 32.2 - 36.5 Gram/dL 04/30/2019 10:25 AM EST RDW 13.4 11.7 - 14.9 % 04/30/2019 10:25 AM EST Platelet Count 272 163 - 369 K/uL 04/30/2019 10:25 AM EST MPV 11.2 9.4 - 12.4 fL 04/30/2019 10:25 AM EST Slide Review No 04/30/2019 10:26 AM EST Blood 04/30/2019 3:51 AM EST 04/30/2019 10:20 AM EST [facility] Historical Provider LAB BLOOD ORDERABLES Final Result [facility] [address] [phone] documented in this encounter Visit Diagnoses Not on filedocumented in this encounter
--- OUTSIDE RECORDS SUMMARY | 2024-02-20 09:20 | XMS_ITS | Encounter Summary ---
Author Organization [employer] Address [address] [place] [address] Care Team Providers Care Nursing Admin Name Role Phone Unavailable Primary Care Provider Unavailabl e Encounter Details Date Type Department Care Team (Late st Contact Info) Description 05/01/2019 Historic Encounter [address] [address] Provider, Luciano Bronson MD Social [...] Date/Time Associated Diagnosis Comments GLUCOSE-POC Routine 05/01/2019 3:30 PM EST documented in this encounter Results * (ABNORMAL) Glucose, Point of Care (05/01/2019 3:30 PM EST) Glucose POC2 169(H) 70 - 110 mg/dL 05/01/2019 8:30 PM EST [facility] Nuclear Medicine Technologist [id number] 05/01/2019 8:30 PM EST [facility] Device SN [id number] 05/01/2019 8:30 PM EST [facility] Device Comment1 Protocols Followed 05/01/2019 8:30 PM EST [facility] Blood 05/01/2019 3:30 PM EST 05/01/2019 8:35 PM EST [facility] Historical Provider POINT OF CARE TEST OR DERABLES Final Result [facility] [address] [phone] documented in this encounter Visit Diagnoses Not on filedocumented in this encounter
--- OUTSIDE RECORDS SUMMARY | 2024-02-20 09:20 | XMS_ITS | Encounter Summary ---
Author Organization [employer] Address [address] [place] [address] Care Team Providers Care Color Control Operator Name Role Phone Unavailable Primary Care Provider Unavailabl e Encounter Details Date Type Department Care Team (Late st Contact Info) Description 05/02/2019 Transcribed Document [facility] Neurology - [address] [facility] [address] [place] [address] Meliza Downs Jr., MD [address] [place] [address] [address] Social History Tobacco Use Types [...] - Meliza Downs Jr., MD - 05/02/2019 3:46 PM EST Patient: GERTRUDIS DALY Age: 63 years Sex: Female : 1955 Associated Diagnoses: None Author: MELIZA DOWNS MD-SNU looks great this afternoon no pain c/d/i left leg weakness stable dc home w/ cande ehalth documented in this encounter Plan of Treatment Not on file documented as of this encounter Visit Diagnoses Not on filedocumented in this encounter
--- OUTSIDE RECORDS SUMMARY | 2024-02-20 09:20 | XMS_ITS | Encounter Summary ---
Author Organization [employer] Address [address] [place] [address] Care Team Providers Care Transportation Escort Name Role Phone Unavailable Primary Care Provider Unavailabl e Encounter Details Date Type Department Care Team (Late st Contact Info) Description 04/30/2019 Transcribed Document [address] [address] Provider, Luciano Bronson MD Social History Tobacco Use Types Packs/Day Years Used Date Smoking Tobacco: Never Assessed Comments Unknown Sex and Gender Information Value Date Recorded Sex Assigned at Not on file Legal Sex Female 6:01 PM CDT Gender Identity Not on file Sexual Orientation Not on file documented as of this encounter Miscellaneous Notes * Cerner Conversion Note - [facility] Aiyana ProviderMD - 04/30/2019 8:06 AM EST UM Authorization Entered On: 04/30/2019 7:07 EST Performed On: 04/30/2019 7:06 EST by Dayna Rios, Personal Computer Network Analyst Primary Insurance Authorization Authorization and Policy Numbers : Insurance 1 Health Plan: [employer] MEDICARE REPL Policy Number: [id number] Authorization Number: [id number] Insurance Primary Name : Tanya [id number] Authorization Status-Primary : Admit approved Authorization Number-Primary : [id number] Number of Days Authorized-Primary : 5 Day(s) Authorized Service Begin Date-Primary : 04/25/2019 EST Authorized Service End Date-Primary : 04/30/2019 EST Authorization Comments-Primary : Authorized per fax 04/29/2019 @ 1530. Approved x5 days (6 total: 04/25-04/30). Next review due on 05/01/2019. Tameka Davidson RN. Historical Authorization Comments-Primary : Comment 1: clinical faxed per cerner for 04/27 and 04/28 (Gali Newman, Rn-Utilization Review 04/28/2019 15:19) Comment 2: call back from tameka lui with [employer] requesting clinical be faxed to [phone]. clinical faxed per cerner (Gali Newman, Rn-Utilization Review 04/28/2019 15:17) Comment 3: lvm with brigette lui with tanya for c/s . acb (Gali Newman, Rn-Utilization Review 04/28/2019 13:51) Comment 4: clinicals faxed via cerner for cont stay (only 1 day approved) (BULMARO DUONG, RN-Utilization Review 04/26/2019 13:11) Comment 5: per [facility] inpt approved 1 day auth# [id number] (FRANCY MILIAN, Locksmith Helper 04/24/2019 13:26) Dayna Rios, Personal Computer Network Analyst - 04/30/2019 7:06 EST documented in this encounter Plan of Treatment Not on file documented as of this encounter Visit Diagnoses Not on filedocumented in this encounter
--- OUTSIDE RECORDS SUMMARY | 2024-02-20 09:20 | XMS_ITS | Encounter Summary ---
Author Organization [employer] Address [address] [place] [address] Care Team Providers Care Community Arts Centre Manager Name Role Phone Unavailable Primary Care Provider Unavailabl e Encounter Details Date Type Department Care Team (Late st Contact Info) Description 04/30/2019 Transcribed Document [facility] Neurology - [address] [facility] [address] [place] [address] Lane Ortiz Jr., MD [address] [place] [address] [address] Social History Tobacco Use Types Packs/Day Years Used Date Smoking Tobacco: Never Assessed Comments Unknown Sex and Gender Information Value Date Recorded Sex Assigned at Not on file Legal Sex Female 6:01 PM CDT Gender Identity Not on file Sexual Orientation Not on file documented as of this encounter Miscellaneous Notes * Cerner Conversion Note - Lane Ortiz Jr., MD - 04/30/2019 9:01 AM EST Patient: GERTRUDIS DALY Age: 63 Years Sex: Female : 1955 Subjective no acute events overnight. Walked 180 feet with physical therapy yesterday. Leg pain may be slightly better but still moderate-severe. Has been using IS. Vital Signs T: 37.1 ??C TMIN: 37.1 ??C TMAX: 38.8 ??C HR: 65(Monitored) RR: 18 BP: 110/58 SpO2: 92% Oxygen Settings (Last) Oxygen Therapy Mode: Room air (04/29/19 21:21:00) Oxygen Flow Rate: 2 Liter/Min (04/29/19 11:20:00) Physical Exam Tmax 101.8 over last 24 hours, afvss now laying in bed, sleepy. 4+/5 diffusely.3-4 left ankle nonfocal. 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 flat or < 20 degrees as much as possible. monitor for leak. Continue PT. Acute rehab precert pending. Keep goodman per urology. Placed scripts for [...] 100 mg= 2 Cap, Oral, TID Metamucil [place] Smooth Texture Sugar Free, 1 Packet, [...] Test Name Test Result Date/Time Sodium Level 138 mmol/L 04/30/2019 03:51 EST Sodium Level 138 mmol/L 04/29/2019 09:11 EST Potassium Level 3.4 mmol/L (Low) 04/30/2019 03:51 EST Potassium Level 3.3 mmol/L (Low) 04/29/2019 09:11 EST Chloride Level 107 mmol/L 04/30/2019 03:51 EST Chloride Level 104 mmol/L 04/29/2019 09:11 EST Carbon Dioxide Level 27 mmol/L 04/30/2019 03:51 EST Carbon Dioxide Level 31 mmol/L 04/29/2019 09:11 EST Anion Gap 7 (Low) 04/30/2019 03:51 EST Anion Gap 6 (Low) 04/29/2019 09:11 EST Glucose Level 146 mg/dL (High) 04/30/2019 03:51 EST Glucose Level 131 mg/dL (High) 04/29/2019 09:11 EST Blood Urea Nitrogen 16 mg/dL 04/30/2019 03:51 EST Blood Urea Nitrogen 11 mg/dL 04/29/2019 09:11 EST Creatinine Level 0.50 mg/dL (Low) 04/30/2019 03:51 EST Creatinine Level 0.50 mg/dL (Low) 04/29/2019 09:11 EST eGFR >60 mL/min/1.73m2 04/30/2019 03:51 EST eGFR >60 mL/min/1.73m2 04/29/2019 09:11 EST eGFR NonAfrican >60 mL/min/1.73m2 04/30/2019 03:51 EST eGFR NonAfrican >60 mL/min/1.73m2 04/29/2019 09:11 EST Bun/Creatinine 32.0 (High) 04/30/2019 03:51 EST Bun/Creatinine 22.0 (High) 04/29/2019 09:11 EST Calcium Level 8.9 mg/dL 04/30/2019 03:51 EST Calcium Level 8.8 mg/dL 04/29/2019 09:11 EST Device Comment 1 Notified Nurse RBV 04/30/2019 05:13 EST Device Comment 1 Protocols Followed 04/29/2019 19:27 EST Device Comment 1 Protocols Followed 04/29/2019 16:12 EST Device Comment 1 Protocols Followed 04/29/2019 11:21 EST Glucose POC2 146 mg/dL (High) 04/30/2019 05:13 EST Glucose POC2 167 mg/dL (High) 04/29/2019 19:27 EST Glucose POC2 165 mg/dL (High) 04/29/2019 16:12 EST Glucose POC2 204 mg/dL (High) 04/29/2019 11:21 EST WBC 8.4 K/uL 04/30/2019 03:51 EST WBC 9.1 K/uL 04/29/2019 09:11 EST RBC 4.28 Million/uL 04/30/2019 03:51 EST RBC 4.21 Million/uL 04/29/2019 09:11 EST Hgb 12.6 g/dL 04/30/2019 03:51 EST Hgb 12.6 g/dL 04/29/2019 09:11 EST Hct 39.3 % 04/30/2019 03:51 EST Hct 38.4 % 04/29/2019 09:11 EST MCV 91.8 fL 04/30/2019 03:51 EST MCV 91.2 fL 04/29/2019 09:11 EST MCH 29.4 pg 04/30/2019 03:51 EST MCH 29.9 pg 04/29/2019 09:11 EST MCHC 32.1 Gram/dL (Low) 04/30/2019 03:51 EST MCHC 32.8 Gram/dL 04/29/2019 09:11 EST Platelet Count 272 K/uL 04/30/2019 03:51 EST Platelet Count 240 K/uL 04/29/2019 09:11 EST MPV 11.2 fL 04/30/2019 03:51 EST MPV 11.1 fL 04/29/2019 09:11 EST RDW 13.4 % 04/30/2019 03:51 EST RDW 13.2 % 04/29/2019 09:11 EST Neut % 66.7 % 04/30/2019 03:51 EST Neut % 72.1 % (High) 04/29/2019 09:11 EST Neut # 5.58 K/uL 04/30/2019 03:51 EST Neut # 6.59 K/uL (High) 04/29/2019 09:11 EST Lymph % 20.7 % 04/30/2019 03:51 EST Lymph % 16.4 % (Low) 04/29/2019 09:11 EST Lymph # 1.73 x10(3)/uL 04/30/2019 03:51 EST Lymph # 1.50 x10(3)/uL 04/29/2019 09:11 EST Story % 7.0 % 04/30/2019 03:51 EST Story % 7.8 % 04/29/2019 09:11 EST Story # 0.59 K/uL 04/30/2019 03:51 EST Story # 0.71 K/uL 04/29/2019 09:11 EST Eos % 4.4 % 04/30/2019 03:51 EST Eos % 2.6 % 04/29/2019 09:11 EST Eos # 0.37 x10(3)/uL 04/30/2019 03:51 EST Eos # 0.24 x10(3)/uL 04/29/2019 09:11 EST Baso % 0.7 % 04/30/2019 03:51 EST Baso % 0.8 % 04/29/2019 09:11 EST Baso # 0.06 x10(3)/uL 04/30/2019 03:51 EST Baso # 0.07 x10(3)/uL 04/29/2019 09:11 EST Slide Review No 04/30/2019 03:51 EST Slide Review No 04/29/2019 09:11 EST IG# 0.04 x10(3)/uL 04/30/2019 03:51 EST IG# 0.03 x10(3)/uL 04/29/2019 09:11 EST IG% 0.50 % 04/30/2019 03:51 EST IG% 0.30 % 04/29/2019 09:11 EST documented in this encounter Plan of Treatment Not on file documented as of this encounter Visit Diagnoses Not on filedocumented in this encounter
--- OUTSIDE RECORDS SUMMARY | 2024-02-20 09:20 | XMS_ITS | Encounter Summary ---
Author Organization [employer] Address [address] [place] [address] Care Team Providers Care Die Turner Name Role Phone Unavailable Primary Care Provider Unavailabl e Encounter Details Date Type Department Care Team (Late st Contact Info) Description 05/02/2019 Transcribed Document [address] [address] Provider yvon Bronson MD Social History Tobacco Use Types Packs/Day Years Used Date Smoking Tobacco: Never Assessed Comments Unknown Sex and Gender Information Value Date Recorded Sex Assigned at Not on file Legal Sex Female 6:01 PM CDT Gender Identity Not on file Sexual Orientation Not on file documented as of this encounter Miscellaneous Notes * Cerner Conversion Note - [facility] Aiyana ProviderMD - 05/02/2019 8:10 PM EST Nursing Discharge Summary Entered On: 05/02/2019 19:10 EST Performed On: 05/02/2019 19:10 EST by Ericka Wharton RN Discharge Documentation Discharge Date/Time : 05/02/2019 16:10 EST Patient Disposition, General : Discharge Discharge To : Home with ambulatory/outpatient follow-up Mode Of Departure, General Discharge : Private vehicle Accompanied By, Discharge : Spouse IV Discontinued : Yes Medications Given to Patient : Yes Personal Belongings With Patient : Yes Pt's Own Supply of Medications Returned : Yes Prescriptions Given to Patient : Yes Discharge Instructions Reviewed With, Opportunity For Questions Given : Patient, Spouse Patient Education Completed : Yes Number of Prescriptions Given : 3 Teaching Method : Explanation Teaching Evaluation : Verbalizes understanding Ericka Wharton RN - 05/02/2019 19:10 EST Electronically signed by Carito [facility] Conversion Professional Engineer Cerner at 08/23/2022 11:19 AM CDT documented in this encounter Plan of Treatment Not on file documented as of this encounter Visit Diagnoses Not on filedocumented in this encounter
--- OUTSIDE RECORDS SUMMARY | 2024-02-20 09:20 | XMS_ITS | Encounter Summary ---
Author Organization [employer] Address [address] [place] [address] Care Team Providers Care Booth Supervisor Name Role Phone Unavailable Primary Care Provider Unavailabl e Encounter Details Date Type Department Care Team (Late st Contact Info) Description 05/05/2019 Transcribed Document [address] [address] Provider, Luciano Bronson MD Social History Tobacco Use Types Packs/Day Years Used Date Smoking Tobacco: Never Assessed Comments Unknown Sex and Gender Information Value Date Recorded Sex Assigned at Not on file Legal Sex Female 6:01 PM CDT Gender Identity Not on file Sexual Orientation Not on file documented as of this encounter Miscellaneous Notes * Cerner Conversion Note - [facility] Aiyana ProviderMD - 05/05/2019 3:05 PM EST UM Authorization Entered On: 05/05/2019 14:05 EST Performed On: 05/05/2019 14:05 EST by Dayna Rios, Active Directory Systems Administrator Primary Insurance Authorization Authorization and Policy Numbers : Insurance 1 Health Plan: [employer] MED[employer]ARE REPL Policy Number: [id number] Authorization Number: [id number] Insurance Primary Name : [facility] [id number] Authorization Status-Primary : Admit approved Auth/Referral Contact Name-Primary : DC Authorization Number-Primary : [id number] Number of Days Authorized-Primary : 8 Day(s) Authorized Service Begin Date-Primary : 04/25/2019 EST Authorized Service End Date-Primary : 05/03/2019 EST Authorization Comments-Primary : Discharge date and summary faxed. Historical Authorization Comments-Primary : Comment 1: c/s auth approved per brigette for 05/01 to 05/02. nrd 05/03 (Trent, Gali L, Rn-Utilization Review 05/02/2019 08:47) Comment 2: Authorized per fax 04/29/2019 @ 1530. Approved x5 days (6 total: 04/25-04/30). Next review due on 05/01/2019. Tameka Davidson, RN. (Dayna Rios, Active Directory Systems Administrator 04/30/2019 07:06) Comment 3: clinical faxed per cerner for 04/27 and 04/28 (Gali Newman, Rn-Utilization Review 04/28/2019 15:19) Comment 4: call back from tameka lui with [employer] requesting clinical be faxed to [phone]. clinical faxed per cerner (Gali Newman Rn-Utilization Review 04/28/2019 15:17) Comment 5: lvm with brigette lui with [employer] for c/s . acb (Gali Newman Rn-Utilization Review 04/28/2019 13:51) Comment 6: clinicals faxed via cerner for cont stay (only 1 day approved) (BULMARO DUONG, RN-Utilization Review 04/26/2019 13:11) Comment 7: per [facility] inpt approved 1 day auth# [id number] (FRANCY MILIAN, Car Repairer [place] 04/24/2019 13:26) Dayna Rios, Active Directory Systems Administrator - 05/05/2019 14:05 EST documented in this encounter Plan of Treatment Not on file documented as of this encounter Visit Diagnoses Not on filedocumented in this encounter
--- OUTSIDE RECORDS SUMMARY | 2024-02-20 09:20 | XMS_ITS | Encounter Summary ---
Author Organization [employer] Address [address] [place] [id number] Care Team Providers Care Elastic Attacher Zigzag Name Role Phone Unavailable Primary Care Provider Unavailabl e Encounter Details Date Type Department Care Team (Late st Contact Info) Description 04/29/2019 Transcribed Document [address] [address] Karina Murphy MD [address] [place] [address] Social History Tobacco Use Types Packs/Day Years Used Date Smoking Tobacco: Never Assessed Comments Unknown Sex and Gender Information Value Date Recorded Sex Assigned at Not on file Legal Sex Female 6:01 PM CDT Gender Identity Not on file Sexual Orientation Not on file documented as of this encounter Miscellaneous Notes * Cerner Conversion Note - Karina Murphy MD - 04/29/2019 10:00 AM EST Patient: GERTRUDIS DALY Age: 63 years Sex: Female : 1955 Associated Diagnoses: None Author: GERALDINE KESSLER, VASILE-GUNNAR S: Patient found lying in bed. A/O. Reports LBP is poorly controlled- frequent painful muscle spasms. Reports right hip radiation and bilateral foot numbness. Patient has been up with PT ambulating in hallway with walker assist. No cough, dyspnea, fever, n/v. Bowels have not yet moved but patient is passing gas. Urology has seen patient- goodman will remain for 5-7 days per patient request. Chief Complaint: Dr Ortiz requested medical management post-op; HPI: 63 y/o WF admitted s/p L3-L5 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 Patient seen post-op in ICU. Denies dyspnea, chest pain pressure. Denies fever, chills, sweats. No Issues with nausea or vomitting. No bowel movement. (+) flatus. Patient denies any recent exacerbations of chronic medical problems. Patient denies recent sinus infection, bronchitis, or pneumonia. Denies recent asthma exacerbations. Denies gastroenteritis. Denies chest pain, pressure or palpitations. Denies recent antibiotics or med changes by PCP. Reports DM2. Stable on current regimen. Denies hx of CAD, afib, syncope, tia or strokes. Review of preop workup shows routine bloodwork, urinalysis significant for glucosuria and EKG significant for possible old infarct. MEDICAL HISTORY: HTN, DM2, GERD, Chronic constipation, chronic pain, sleep apnea SURGICAL HISTORY: prior back surgery, SOCIAL HISTORY: never smoker, FAMILY HISTORY: CVA, DM2, HTN, Seizures Home Medications (16) Active Amitiza 24 mcg, Oral, BID bisoprolol 5 mg, Oral, At Bedtime cyclobenzaprine 10 mg, PRN, Oral, BID Domperidone 10 mg, Oral, QID glimepiride 4 mg, Oral, Daily Januvia 100 mg, Oral, Daily Jardiance 10 mg, Oral, QAM losartan 100 mg, Oral, Daily NIFEdipine extended release 60 mg, Oral, Daily omeprazole 40 mg, Oral, Daily ProAir HFA 90 mcg/inh inhalation aerosol 2 Puff, PRN, Inhalation, QID rOPINIRole 1 mg, Oral, At Bedtime topiramate 50 mg, PRN, Oral, Daily traMADol 50 mg, PRN, Oral, TID traZODone 50-100 mg, Oral, At Bedtime Vitamin B6 100 mg, Oral, BID ALLERGIES Allergies (6) Active Reaction amLODIPine None Documented Hydrochlorothiazide-Metoprolol ER Dry cough Latex Rash metFORMIN Blurred vision Neurontin Hallucinations spironolactone Actos Constitutional: [No fevers, chills, sweats] Eye: [No recent visual problems, eye discharge, eye pain, redness] HEENT: [No nasal congestion, sore throat Respiratory: [No shortness of breath, cough, pain on breathing, sputum production] Cardiovascular: [No Chest pain, palpitations, syncope, shortness of breath while laying flat] Gastrointestinal: [No nausea, vomiting Genitourinary: +urinary retention- goodman intact, no hematuria Musculoskeletal: LBP with decreased ROM Integumentary: [No rash, pruritus Neurologic: pain radiation to right hip, +bilateral foot numbness Psychiatric: [No anxiety, depression EXAM Vitals Signs (last 24 hrs) Last Charted Minimum Maximum Temp 98.8 (APR 29 05:31) 98 (APR 28 14:00) 99.1 (APR 28 10:30) Mon HR 86 (APR 29:) 86 (APR 29:) 102 (APR 28:) Resp Rate 16 (APR 29:) 16 (APR 28 22:45) 20 (APR 28:) SBP 114 (APR 29:) 112 (APR 29 03:00) 134 (APR 28 10:30) DBP 60 (APR 29:) L 57 (APR 29 03:00) 70 (APR 28 14:00) MAP 81 (APR 29:) 71 (APR 29 03:00) 94 (APR 28 10:30) SpO2 L 91 (APR 28:) L 90 (APR 28 09:12) 95 (APR 28 14:00) PE: General: [Alert and oriented, no acute distress]. Neurologic: [Awake, alert, and oriented X3, CN II-XII intact]. Eye: [PERRL, EOMI, normal conjunctiva]. HENT: [Normocephalic, normal hearing, moist oral mucosa, no scleral icterus, no sinus tenderness]. Neck: [Supple, non-tender, no lymphadenopathy]. Lungs: [Clear to auscultation, non-labored respiration]. Heart: [Normal rate, regular rhythm, no edema]. Abdomen: [Soft, non-tender, non-distended, normal bowel sounds Musculoskeletal: LBP with decreased ROM Skin: [Skin is warm, dry and pink Psychiatric: [Cooperative, appropriate mood and affect]. Blood Gases (Current Encounter/Past 24 Hours) No Blood Gas Results Found (Past 24 Hours) Electrolytes(BMP) Results (Current Encounter/Past 24 Hours) Sodium Level 138 mmol/L 04/29/2019 09:47 Potassium Level 3.3 mmol/L LOW 04/29/2019 09:47 Chloride Level 104 mmol/L 04/29/2019 09:47 Carbon Dioxide Level 31 mmol/L 04/29/2019 09:47 Anion Gap 6 LOW 04/29/2019 09:47 Blood Urea Nitrogen 11 mg/dL 04/29/2019 09:47 Glucose Level 131 mg/dL KS 04/29/2019 09:47 Calcium Level 8.8 mg/dL 04/29/2019 09:47 Creatinine Level 0.50 mg/dL LOW 04/29/2019 09:47 Cardiac Markers (Current Encounter/Past 24 Hours) No Cardiac Marker Results Found (Past 24 Hours) CBC Results (Current Encounter/Past 24 Hours) WBC 9.1 K/uL 04/29/2019 09:46 Hct 38.4 % 04/29/2019 09:46 Hgb 12.6 g/dL 04/29/2019 09:46 Platelet Count 240 K/uL 04/29/2019 09:46 CMP Results (Current Encounter/Past 24 Hours) Bun/Creatinine 22.0 KS 04/29/2019 09:47 Creatinine Level 0.50 mg/dL LOW 04/29/2019 09:47 eGFR NonAfrican >60 mL/min/1.73m2 04/29/2019 09:47 eGFR >60 mL/min/1.73m2 04/29/2019 09:47 Sodium Level 138 mmol/L 04/29/2019 09:47 Potassium Level 3.3 mmol/L LOW 04/29/2019 09:47 Chloride Level 104 mmol/L 04/29/2019 09:47 Carbon Dioxide Level 31 mmol/L 04/29/2019 09:47 Anion Gap 6 LOW 04/29/2019 09:47 Blood Urea Nitrogen 11 mg/dL 04/29/2019 09:47 Glucose Level 131 mg/dL KS 04/29/2019 09:47 Calcium Level 8.8 mg/dL 04/29/2019 09:47 Coagulation Results (Current Encounter/Past 24 Hours) No Coagulation Results Found (Past 24 Hours) Creatinine Clearance (Current Encounter/Past 24 Hours) Creatinine Level 0.50 mg/dL LOW 04/29/2019 09:47 Bun/Creatinine 22.0 KS 04/29/2019 09:47 Estimated Creatinine Clearance 92.27 mL/Min 04/29/2019 09:47 Labs Most Recent Last 28 days CBC Results-Most Recent Last 28 Days Event Name Event Result Date/Time WBC 9.8 K/uL 04/28/19 03:07:00 RBC 4.22 Million/uL 04/28/19 03:07:00 Hgb 12.3 g/dL 04/28/19 03:07:00 Hct 38.7 % 04/28/19 03:07:00 MCV 91.7 fL 04/28/19 03:07:00 MCH 29.1 pg 04/28/19 03:07:00 MCHC 31.8 Gram/dL Low 04/28/19 03:07:00 Platelet Count 214 K/uL 04/28/19 03:07:00 MPV 11.3 fL 04/28/19 03:07:00 RDW 13 % 04/28/19 03:07:00 Slide Review No 04/28/19 03:07:00 BMP Results (Most Recent Last 28 Days) Event Name Event Result Date/Time Sodium Level 138 mmol/L 04/28/19 03:07:00 Potassium Level 3.5 mmol/L 04/28/19 03:07:00 Chloride Level 102 mmol/L 04/28/19 03:07:00 Carbon Dioxide Level 31 mmol/L 04/28/19 03:07:00 Anion Gap 8 Low 04/28/19 03:07:00 Glucose Level 266 mg/dL High 04/28/19 03:07:00 Blood Urea Nitrogen 14 mg/dL 04/28/19 03:07:00 Creatinine Level 0.6 mg/dL 04/28/19 03:07:00 eGFR >60 04/28/19 03:07:00 eGFR NonAfrican >60 04/28/19 03:07:00 Bun/Creatinine 23.3 High 04/28/19 03:07:00 Calcium Level 8.6 mg/dL 04/28/19 03:07:00 Other Lab Results (Most Recent Last 28 Days) Event Name Event Result Date/Time Albumin Level 3.7 Gram/dL 04/15/19 08:32:00 No Radiology Results FoundRI: IMPRESSION: 1. Smoothly marginated homogeneously enhancing extra-axial mass overlying the right frontoparietal region measuring up to 24 mm, favored to represent a meningioma. Dural metastasis would be considered much less likely. 2. Remaining brain parenchyma is unremarkable. IMPRESSION Cauda equina tumor L3-L5 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 post-op urinary retention; urology consulted neurogenic bladder Diabetes Mellitus II HTN Hypoxia 2* to atelectasis hypokalemia- 3.3 on labs today PLAN Potassium replaced x 1- 30meq Rehab placement pending per Dr. Ortiz; family requesting placement in [place] Urology consulted given neurogenic bladder and retention requiring goodman - will continue goodman with voiding trial in 5-7days Monitor HTN; add PRN's, hold parameters continue bowel regimen continue incentive spirometer PT/OT DVT prophylaxis noted- SCDs Pain management deferred to surgeon will monitor hb/hct daily for signs of ongoing acute blood loss will monitor bun/cr daily for signs of dehydration, prerenal azotemia will monitor for signs/symptoms of post-op wound infection or hospital acquired infectious process accuchecks qac, qhs for blood glucose monitoring; usual regimen for DM2 already resumed. will continue. add correction insulin resume outpatient medication regimen for comorbidities Assessment and treatment plan made in conjunction with Hanna Murphy MD documented in this encounter Plan of Treatment Not on file documented as of this encounter Visit Diagnoses Not on filedocumented in this encounter
--- OUTSIDE RECORDS SUMMARY | 2024-02-20 09:20 | XMS_ITS | Encounter Summary ---
Author Organization [employer] Address [address] [place] [address] Care Team Providers Care Wire Mesh Gate Assembler Name Role Phone Unavailable Primary Care Provider Unavailabl e Encounter Details Date Type Department Care Team (Late st Contact Info) Description 05/01/2019 Historic Encounter [address] [address] Provider, Luciano Bronson MD Social [...] Priority Date/Time Associated Diagnosis Comments AUTOMATED DIFFERENTIAL ([facility] DATA CONV) Routine 05/01/2019 3:10 AM EST documented in this encounter Results * AUTOMATED DIFFERENTIAL ([facility]KR DATA CONV) (05/01/2019 3:10 AM EST) Neut% 64.7 34.0 - 71.0 % 05/01/2019 9:57 AM EST Lymph% 22.8 19.3 - 53.1 % 05/01/2019 9:57 AM EST [place]% 7.5 3.0 - 9.0 % 05/01/2019 9: 57 AM EST Eos% 3.4 0.0 - 7.0 % 05/01/2019 9: 57 AM EST Baso% 1.0 0.0 - 1.5 % 05/01/2019 9: 57 AM EST IG% 0.60 0.00 - 0.60 % 05/01/2019 9:57 AM EST Neut# 5.39 1.56 - 6.13 K/uL 05/01/2019 9:57 AM EST Lymph# 1.90 1.00 - 3.90 x10(3)/uL 05/01/2019 9:57 AM EST [place]# 0.62 0.16 - 1.00 K/uL 05/01/2019 9:57 AM EST Eos# 0.28 0.00 - 0.80 x10(3)/uL 05/01/2019 9:57 AM EST Baso# 0.08 0.00 - 0.20 x10(3)/uL 05/01/2019 9:57 AM EST IG# 0.05 0.00 - 0.05 x10(3)/uL 05/01/2019 9:57 AM EST Blood 05/01/2019 3:10 AM EST 05/01/2019 9:49 AM EST Narrative [facility] - 05/01/2019 9:57 AM EST Added by Discern Expert [facility] Historical Provider LAB BLOOD ORDERABLES Final Result [facility] [address] [phone] documented in this encounter Visit Diagnoses Not on filedocumented in this encounter
--- OUTSIDE RECORDS SUMMARY | 2024-02-20 09:20 | XMS_ITS | Encounter Summary ---
Author Organization [employer] Address [address] [place] [address] Care Team Providers Care Aircraft Load Controller Name Role Phone Unavailable Primary Care Provider Unavailabl e Encounter Details Date Type Department Care Team (Late st Contact Info) Description 04/29/2019 Historic Encounter [address] [address] Provider, Luciano Bronson MD Social [...] Date/Time Associated Diagnosis Comments GLUCOSE-POC Routine 04/29/2019 11:21 AM EST documented in this encounter Results * (ABNORMAL) Glucose, Point of Care (04/29/2019 11:21 AM EST) Glucose POC2 204(H) 70 - 110 mg/dL 04/29/2019 4:21 PM EST [facility] Sexual Abuse Counsellor [id number] 04/29/2019 4:21 PM EST [facility] Device SN [id number] 04/29/2019 4:21 PM EST [facility] Device Comment1 Protocols Followed 04/29/2019 4:21 PM EST [facility] Blood 04/29/2019 11:2 1 AM EST 04/29/2019 4:24 PM EST [facility] Historical Provider POINT OF CARE TEST OR DERABLES Final Result [facility] [address] [phone] documented in this encounter Visit Diagnoses Not on filedocumented in this encounter
--- OUTSIDE RECORDS SUMMARY | 2024-02-20 09:20 | XMS_ITS | Encounter Summary ---
Author Organization [employer] Address [address] [place] [address] Care Team Providers Care Operations Analyst Name Role Phone Unavailable Primary Care Provider Unavailabl e Encounter Details Date Type Department Care Team (Late st Contact Info) Description 04/29/2019 Historic Encounter [address] [address] Provider, Luciano Bronson MD Social [...] Associated Diagnosis Comments CBC W/ AUTO DIFF ([facility] BK DATA CONV) Routine 04/29/2019 9:11 AM EST documented in this encounter Results * CBC W/ AUTO DIFF ([facility] DATA CONV) (04/29/2019 9:11 AM EST) WBC 9.1 4.5 - 10.5 K/uL 04/29/2019 2:34 PM EST RBC 4.21 3.93 - 5.22 Million/uL 04/29/2019 2:34 PM EST Hgb 12.6 11.2 - 15.7 g/dL 04/29/2019 2:34 PM EST Hct 38.4 34.1 - 44.9 % 04/29/2019 2:34 PM EST MCV 91.2 79.0 - 94.8 fL 04/29/2019 2:34 PM EST MCH 29.9 25.6 - 32.2 pg 04/29/2019 2:34 PM EST MCHC 32.8 32.2 - 36.5 Gram/dL 04/29/2019 2:34 PM EST RDW 13.2 11.7 - 14.9 % 04/29/2019 2:34 PM EST Platelet Count 240 163 - 369 K/uL 04/29/2019 2:34 PM EST MPV 11.1 9.4 - 12.4 fL 04/29/2019 2:34 PM EST Slide Review No 04/29/2019 2:46 PM EST Blood 04/29/2019 9:11 AM EST 04/29/2019 2:26 PM EST [facility] Historical Provider LAB BLOOD ORDERABLES Final Result [facility] [address] [phone] documented in this encounter Visit Diagnoses Not on filedocumented in this encounter
--- OUTSIDE RECORDS SUMMARY | 2024-02-20 09:20 | XMS_ITS | Encounter Summary ---
Author Organization [employer] Address [address] [place] [address] Care Team Providers Care Cap And Stud Machine Operator Name Role Phone Unavailable Primary Care Provider Unavailabl e Encounter Details Date Type Department Care Team (Late st Contact Info) Description 05/01/2019 Transcribed Document [address] [address] Provider [facility] MD Aiyana Social History Tobacco Use Types Packs/Day Years Used Date Smoking Tobacco: Never Assessed Comments Unknown Sex and Gender Information Value Date Recorded Sex Assigned at Not on file Legal Sex Female 6:01 PM CDT Gender Identity Not on file Sexual Orientation Not on file documented as of this encounter Miscellaneous Notes * Cerner Conversion Note - [facility] Historical ProviderMD - 05/01/2019 6:00 PM EST Chart Check - Review Order Profile Entered On: 05/01/2019 18:11 EST Performed On: 05/01/2019 17:00 EST by Nicolasa Abernathy RN Chart Check Powerplans Initiated/Discontinued as Appropriate : Yes All Active Orders Reviewed : Yes Nicolasa Abernathy RN - 05/01/2019 18:11 EST Electronically signed by Carito [facility] Conversion Soaking Pits Supervisor Cerner at 08/23/2022 11:19 AM CDT documented in this encounter Plan of Treatment Not on file documented as of this encounter Visit Diagnoses Not on filedocumented in this encounter
--- OUTSIDE RECORDS SUMMARY | 2024-02-20 09:20 | XMS_ITS | Encounter Summary ---
Author Organization [employer] Address [address] [place] [address] Care Team Providers Care Space And Missile Operations Spacelift Name Role Phone Unavailable Primary Care Provider Unavailabl e Encounter Details Date Type Department Care Team (Late st Contact Info) Description 05/01/2019 Transcribed Document [address] [address] Karina Murphy MD [address] [place] [address] Social History Tobacco Use Types Packs/Day Years Used Date Smoking Tobacco: Never Assessed Comments Unknown Sex and Gender Information Value Date Recorded Sex Assigned at Not on file Legal Sex Female 6:01 PM CDT Gender Identity Not on file Sexual Orientation Not on file documented as of this encounter Miscellaneous Notes * Cerner Conversion Note - Karina Murphy MD - 05/01/2019 11:24 AM EST Patient: GERTRUDIS DALY Age: 63 years Sex: Female : 1955 Associated Diagnoses: None Author: JEFFREY CUNHA PA Chief Complaint: Dr Ortiz requested medical management post-op; S: Pt is seen today l;aying in bed. Reports that she is having BLE significant pain and has requested not to work with PT yet this morning. She describes the sensation as pins and needles and just took a pain pill to help with this pain. She has a Yang in with plans to leave in place for 5 dayas before bladder training. Plan is [facility] placement today. No f'/c/s. No n/v/d. (+) gas, (-) BM. No CP, SOA, palpitations. +post op pain. Using incentive spirometer. HPI: 63 y/o WF admitted s/p L3-L5 [...] metFORMIN Blurred vision Neurontin Hallucinations spironolactone Actos EXAM Vitals Signs (last 24 hrs) Last Charted Minimum Maximum Temp 99.5 (MAY 01 05:32) 98 (APR 30 21:00) 99.5 (MAY 01:32) Mon HR 76 (MAY 01:32) 76 (MAY 01:32) 101 (APR 30 21:00) Resp Rate 16 (MAY 01:32) 15 (APR 30 18:22) 17 (APR 30 13:37) SBP 113 (MAY 01:32) 113 (MAY 01:32) 130 (APR 30:00) DBP 64 (MAY 01:32) 63 (APR 30 18:22) 70 (APR 30 13:37) MAP 76 (MAY 01 05:32) 76 (MAY 01 05:32) 93 (APR 30 21:00) SpO2 95 (APR 30:) 94 (APR 30 18:22) 95 (APR 30:00) PE: GEN: Alert, awake, NAD; resting in bed CV: S1S2, no murmur. No LE edema Resp: CTAB, NL Abd: Soft, NT, ND +BS : Yang in place with clear urine. Skin: no rashes on inspection and palpation. Surgical incision c/d/i Ext: No LE edema. No joint edema, erythema. Equalflexion ability at the ankle and the knee. Push with the L foot weaker than the R Neuro: A&O x 3 Blood Gases (Current Encounter/Past 24 Hours) No Blood Gas Results Found (Past 24 Hours) Electrolytes(BMP) Results (Current Encounter/Past 24 Hours) Sodium Level 137 mmol/L 05/01/2019 05:26 Potassium Level 3.7 mmol/L 05/01/2019 05:26 Chloride Level 105 mmol/L 05/01/2019 05:26 Carbon Dioxide Level 28 mmol/L 05/01/2019 05:26 Anion Gap 8 LOW 05/01/2019 05:26 Blood Urea Nitrogen 18 mg/dL 05/01/2019 05:26 Glucose Level 152 mg/dL HI 05/01/2019 05:26 Calcium Level 9.1 mg/dL 05/01/2019 05:26 Creatinine Level 0.50 mg/dL LOW 05/01/2019 05:26 Cardiac Markers (Current Encounter/Past 24 Hours) No Cardiac Marker Results Found (Past 24 Hours) CBC Results (Current Encounter/Past 24 Hours) WBC 8.3 K/uL 05/01/2019 04:57 Hct 38.9 % 05/01/2019 04:57 Hgb 12.6 g/dL 05/01/2019 04:57 Platelet Count 294 K/uL 05/01/2019 04:57 CMP Results (Current Encounter/Past 24 Hours) Bun/Creatinine 36.0 SC 05/01/2019 05:26 Creatinine Level 0.50 mg/dL LOW 05/01/2019 05:26 eGFR NonAfrican >60 mL/min/1.73m2 05/01/2019 05:26 eGFR >60 mL/min/1.73m2 05/01/2019 05:26 Sodium Level 137 mmol/L 05/01/2019 05:26 Potassium Level 3.7 mmol/L 05/01/2019 05:26 Chloride Level 105 mmol/L 05/01/2019 05:26 Carbon Dioxide Level 28 mmol/L 05/01/2019 05:26 Anion Gap 8 LOW 05/01/2019 05:26 Blood Urea Nitrogen 18 mg/dL 05/01/2019 05:26 Glucose Level 152 mg/dL SC 05/01/2019 05:26 Calcium Level 9.1 mg/dL 05/01/2019 05:26 Magnesium Level 2.3 mg/dL 04/30/2019 10:53 Coagulation Results (Current Encounter/Past 24 Hours) No Coagulation Results Found (Past 24 Hours) Creatinine Clearance (Current Encounter/Past 24 Hours) Creatinine Level 0.50 mg/dL LOW 05/01/2019 05:26 Bun/Creatinine 36.0 SC 05/01/2019 05:26 Labs Most Recent Last 28 days CBC Results-Most Recent Last 28 Days Event Name Event Result Date/Time WBC 8.3 K/uL 05/01/19 03:10:00 RBC 4.29 Million/uL 05/01/19 03:10:00 Hgb 12.6 g/dL 05/01/19 03:10:00 Hct 38.9 % 05/01/19 03:10:00 MCV 90.7 fL 05/01/19 03:10:00 MCH 29.4 pg 05/01/19 03:10:00 MCHC 32.4 Gram/dL 05/01/19 03:10:00 Platelet Count 294 K/uL 05/01/19 03:10:00 MPV 11.4 fL 05/01/19 03:10:00 RDW 13.3 % 05/01/19 03:10:00 Slide Review No 05/01/19 03:10:00 BMP Results (Most Recent Last 28 Days) Event Name Event Result Date/Time Sodium Level 137 mmol/L 05/01/19 03:10:00 Potassium Level 3.7 mmol/L 05/01/19 03:10:00 Chloride Level 105 mmol/L 05/01/19 03:10:00 Carbon Dioxide Level 28 mmol/L 05/01/19 03:10:00 Anion Gap 8 Low 05/01/19 03:10:00 Glucose Level 152 mg/dL High 05/01/19 03:10:00 Blood Urea Nitrogen 18 mg/dL 05/01/19 03:10:00 Creatinine Level 0.5 mg/dL Low 05/01/19 03:10:00 eGFR >60 05/01/19 03:10:00 eGFR NonAfrican >60 05/01/19 03:10:00 Bun/Creatinine 36 High 05/01/19 03:10:00 Calcium Level 9.1 mg/dL 05/01/19 03:10:00 Other Lab Results (Most Recent Last 28 [...] equina tumor. post-op urinary retention; urology consulted - leave FC in place for now per urology neurogenic bladder with Yang cath in place Diabetes Mellitus II HTN Hypoxia 2* to atelectasis hypokalemia- improved post replacement. PLAN [facility] transfer today No further Potassium replacement Urology following secondary to neurogenic bladder and retention requiring yang - will continue yang for now x 5 additional days and start with voiding trial in 5 days Continue Bethabnacol TID dosing until YANG out. Monitor HTN; add PRN's, hold parameters continue [...]
--- OUTSIDE RECORDS SUMMARY | 2024-02-20 09:20 | XMS_ITS | Encounter Summary ---
Author Organization [employer] Address [address] [place] [address] Care Team Providers Care Dragsaw Operator Name Role Phone Unavailable Primary Care Provider Unavailabl e Encounter Details Date Type Department Care Team (Late st Contact Info) Description 04/30/2019 Transcribed Document [address] [address] Karina Murphy MD [address] [place] [address] Social History Tobacco Use Types Packs/Day Years Used Date Smoking Tobacco: Never Assessed Comments Unknown Sex and Gender Information Value Date Recorded Sex Assigned at Not on file Legal Sex Female 6:01 PM CDT Gender Identity Not on file Sexual Orientation Not on file documented as of this encounter Miscellaneous Notes * Cerner Conversion Note - Karina Murphy MD - 04/30/2019 11:28 AM EST Patient: GERTRUDIS DALY Age: 63 years Sex: Female : 1955 Associated Diagnoses: None Author: JOSSE OVALLE PA-GUNNAR 04/30/2019 Chief Complaint: Dr Ortiz requested medical management post-op; S: Pt is doing ok. No f'/c/s. No n/v/d. (-) gas, (-) BM. No CP, SOA, palpitations. slight cough. Urinating well. +post op pain. Using incentive spirometer. says trying to go to [facility] HPI: 63 y/o WF admitted s/p L3-L5 [...] Last Charted Minimum Maximum Temp 98.8 (APR 30 05:40) 98.8 (APR 30 05:40) H 101.8 (APR 29 10:53) Mon HR 74 (APR 30 08:19) 65 (APR 30 05:40) 95 (APR 29 18:44) Resp Rate 17 (APR 30 08:19) 17 (APR 30 08:19) 20 (APR 29 10:53) SBP 123 (APR 30 08:19) 110 (APR 30 05:40) H 141 (APR 29 18:44) DBP 74 (APR 30 08:19) L 58 (APR 30 05:40) 74 (APR 30 08:19) MAP 86 (APR 30 08:19) 71 (APR 30 05:40) 93 (APR 29 15:16) SpO2 L 92 (APR 29 21:21) L 91 (APR 29 10:53) L 92 (APR 29 18:44) PE: GEN: Alert, awake, NAD; resting in bed CV: S1S2, no murmur. No LE edema Resp: CTAB, NL Abd: Soft, NT, ND +BS Skin: no rashes on inspection and palpation. Ext: No LE edema. No joint edema, erythema. Neuro: A&O x 3 Blood Gases (Current Encounter/Past 24 Hours) No Blood Gas Results Found (Past 24 Hours) Electrolytes(BMP) Results (Current Encounter/Past 24 Hours) Sodium Level 138 mmol/L 04/30/2019 05:35 Potassium Level 3.4 mmol/L LOW 04/30/2019 05:35 Chloride Level 107 mmol/L 04/30/2019 05:35 Carbon Dioxide Level 27 mmol/L 04/30/2019 05:35 Anion Gap 7 LOW 04/30/2019 05:35 Blood Urea Nitrogen 16 mg/dL 04/30/2019 05:35 Glucose Level 146 mg/dL HI 04/30/2019 05:35 Calcium Level 8.9 mg/dL 04/30/2019 05:35 Creatinine Level 0.50 mg/dL LOW 04/30/2019 05:35 Cardiac Markers (Current Encounter/Past 24 Hours) No Cardiac Marker Results Found (Past 24 Hours) CBC Results (Current Encounter/Past 24 Hours) WBC 8.4 K/uL 04/30/2019 05:26 Hct 39.3 % 04/30/2019 05:26 Hgb 12.6 g/dL 04/30/2019 05:26 Platelet Count 272 K/uL 04/30/2019 05:26 CMP Results (Current Encounter/Past 24 Hours) Bun/Creatinine 32.0 PR 04/30/2019 05:35 Creatinine Level 0.50 mg/dL LOW 04/30/2019 05:35 eGFR NonAfrican >60 mL/min/1.73m2 04/30/2019 05:35 eGFR >60 mL/min/1.73m2 04/30/2019 05:35 Sodium Level 138 mmol/L 04/30/2019 05:35 Potassium Level 3.4 mmol/L LOW 04/30/2019 05:35 Chloride Level 107 mmol/L 04/30/2019 05:35 Carbon Dioxide Level 27 mmol/L 04/30/2019 05:35 Anion Gap 7 LOW 04/30/2019 05:35 Blood Urea Nitrogen 16 mg/dL 04/30/2019 05:35 Glucose Level 146 mg/dL PR 04/30/2019 05:35 Calcium Level 8.9 mg/dL 04/30/2019 05:35 Coagulation Results (Current Encounter/Past 24 Hours) No Coagulation Results Found (Past 24 Hours) Creatinine Clearance (Current Encounter/Past 24 Hours) Creatinine Level 0.50 mg/dL LOW 04/30/2019 05:35 Bun/Creatinine 32.0 PR 04/30/2019 05:35 Estimated Creatinine Clearance 92.27 mL/Min 04/29/2019 09:47 No Radiology Results FoundRI: IMPRESSION: 1. Smoothly [...] place for now per urology neurogenic bladder Diabetes Mellitus II HTN Hypoxia 2* to atelectasis hypokalemia- 3.4 on labs today PLAN K cl 40 meq x 1 dose today check mag level Rehab placement pending per Dr. Ortiz Urology consulted given neurogenic bladder and retention [...]
--- OUTSIDE RECORDS SUMMARY | 2024-02-20 09:20 | XMS_ITS | Encounter Summary ---
Author Organization [employer] In [employer] Address [address] [place] [address] Care Team Providers Care Jockey Agent Name Role Phone Unavailable Primary Care Provider Unavailabl e Encounter Details Date Type Department Care Team (Late st Contact Info) Description 04/30/2019 Transcribed Document [facility] Neurology - [address] [facility] [address] [place] [address] Meliza Downs Jr., MD [address] [place] [address] [address] Social History Tobacco Use Types Packs/Day Years Used Date Smoking Tobacco: Never Assessed Comments Unknown Sex and Gender Information Value Date Recorded Sex Assigned at Not on file Legal Sex Female 6:01 PM CDT Gender Identity Not on file Sexual Orientation Not on file documented as of this encounter Miscellaneous Notes * Cerner Conversion Note - Meliza Downs Jr., MD - 04/30/2019 4:49 PM EST Patient: GERTRUDIS DALY Age: 63 years Sex: Female : 1955 Associated Diagnoses: None Author: MELIZA DOWNS MD-SNU looks well this evening sequeira sback pain numbness eleft leg weakness left foot leg pain imprved from preop c/d/i no fever today rehab tomorrow i talked to pt and documented in this encounter Plan of Treatment Not on file documented as of this encounter Visit Diagnoses Not on filedocumented in this encounter
--- OUTSIDE RECORDS SUMMARY | 2024-02-20 09:20 | XMS_ITS | Encounter Summary ---
Author Organization [employer] Address [address] [place] [address] Care Team Providers Care Foundry Manager Name Role Phone Unavailable Primary Care Provider Unavailabl e Encounter Details Date Type Department Care Team (Late st Contact Info) Description 05/02/2019 Transcribed Document [address] [address] Provider, Luciano Bronson MD Social History Tobacco Use Types Packs/Day Years Used Date Smoking Tobacco: Never Assessed Comments Unknown Sex and Gender Information Value Date Recorded Sex Assigned at Not on file Legal Sex Female 6:01 PM CDT Gender Identity Not on file Sexual Orientation Not on file documented as of this encounter Miscellaneous Notes * Cerner Conversion Note - [facility] Aiyana ProviderMD - 05/02/2019 1:40 PM EST On Going Discharge Planning Entered On: 05/02/2019 12:41 EST Performed On: 05/02/2019 12:40 EST by ROMELIA MCADAMS RN-Boil Off Machine Operator ClothCarbonation Tester Progress Note Discharge Arrangements : Patient Post-Acute Information Patient Name: GERTRUDIS DALY Gender: Female : [birth year] Age: 63 Years No Post-Acute Placement(s) Listed No Post-Acute Service(s) Listed No Curaspan Referral(s) Listed Discharge Options Discussed with Patient : Short term rehabilitation Barriers to Discharge Identified : Clinical Condition of Patient Barriers to Discharge Unresolved : All resolved Designation of Choice Signed : Yes Patient Offered Choice/Affiliations Explained : Yes List/Info Provided Pt/Fam/Support Person : Durable medical equipment, Home health Were Referrals Sent to Post Acute Providers : Yes ROMELIA MCADAMS RN-Boil Off Machine Operator Cloth - 05/02/2019 12:40 EST Electronically signed by [facility], [facility] Conversion Stock And Station Agent Cerner at 08/23/2022 11:19 AM CDT documented in this encounter Plan of Treatment Not on file documented as of this encounter Visit Diagnoses Not on filedocumented in this encounter
--- OUTSIDE RECORDS SUMMARY | 2024-02-20 09:20 | XMS_ITS | Encounter Summary ---
Author Organization [employer] Address [address] [place] [address] Care Team Providers Care Rhinestone Setter Name Role Phone Unavailable Primary Care Provider Unavailabl e Encounter Details Date Type Department Care Team (Late st Contact Info) Description 04/28/2019 Transcribed Document [facility] Neurology - [address] [facility] [address] [place] [address] Lane Ortiz Jr., MD [address] [place] [address] [address] Social History Tobacco Use Types Packs/Day Years Used Date Smoking Tobacco: Never Assessed Comments Unknown Sex and Gender Information Value Date Recorded Sex Assigned at Not on file Legal Sex Female 6:01 PM CDT Gender Identity Not on file Sexual Orientation Not on file documented as of this encounter Miscellaneous Notes * Cerner Conversion Note - Lane Ortiz Jr., MD - 04/28/2019 1:35 PM EST Patient: GERTRUDIS DALY Age: 63 Years Sex: Female : 1955 Subjective Per RNmervin. Walked 30 feet with PT yesterday. Leg pain may be slightly better but still moderate-severe. No flatus. UR requiring in and out cath. Vital Signs T: 37.3 ??C TMIN: 36.9 ??C TMAX: 37.3 ??C HR: 92(Monitored) RR: 16 BP: 134/63 SpO2: 93% Oxygen Settings (Last) Oxygen Therapy Mode: Nasal cannula (04/28/19 09:16:00) Oxygen Flow Rate: 2 Liter/Min (04/28/19 09:16:00) Intake & Output Totals Last 24 Hours (7a-7a) Input Total: 51.5 mL Output Total: 1950 mL Balance: -1898.5 mL Physical Exam laying in bed, sleepy. 4+/5 diffusely. nonfocal. silt Assessment/Plan POD 3- L3-L5 laminectomy with resection of cauda equina tumor- Continue heparin. flat or < 20 degrees as much as possible. monitor for leak. Continue PT. Will need rehab. [facility]. Medications alogliptin, 25 mg= 1 Tab, Oral, [...] 100 mg= 2 Cap, Oral, TID Metamucil [place] Smooth Texture Sugar Free, 1 Packet, Oral, [...] Test Result Date/Time Sodium Level 138 mmol/L 04/28/2019 03:07 EST Potassium Level 3.5 mmol/L 04/28/2019 03:07 EST Chloride Level 102 mmol/L 04/28/2019 03:07 EST Carbon Dioxide Level 31 mmol/L 04/28/2019 03:07 EST Anion Gap 8 (Low) 04/28/2019 03:07 EST Glucose Level 266 mg/dL (High) 04/28/2019 03:07 EST Blood Urea Nitrogen 14 mg/dL 04/28/2019 03:07 EST Creatinine Level 0.60 mg/dL 04/28/2019 03:07 EST eGFR >60 mL/min/1.73m2 04/28/2019 03:07 EST eGFR NonAfrican >60 mL/min/1.73m2 04/28/2019 03:07 EST Bun/Creatinine 23.3 (High) 04/28/2019 03:07 EST Calcium Level 8.6 mg/dL 04/28/2019 03:07 EST Device Comment 1 Notified Nurse RBV 04/28/2019 11:42 EST Device Comment 1 Notified Nurse RBV 04/28/2019 05:37 EST Device Comment 1 Notified Nurse RBV 04/27/2019 20:57 EST Device Comment 1 Notified Nurse RBV 04/27/2019 16:40 EST Glucose POC2 159 mg/dL (High) 04/28/2019 11:42 EST Glucose POC2 187 mg/dL (High) 04/28/2019 05:37 EST Glucose POC2 144 mg/dL (High) 04/27/2019 20:57 EST Glucose POC2 255 mg/dL (High) 04/27/2019 16:40 EST WBC 9.8 K/uL 04/28/2019 03:07 EST RBC 4.22 Million/uL 04/28/2019 03:07 EST Hgb 12.3 g/dL 04/28/2019 03:07 EST Hct 38.7 % 04/28/2019 03:07 EST MCV 91.7 fL 04/28/2019 03:07 EST MCH 29.1 pg 04/28/2019 03:07 EST MCHC 31.8 Gram/dL (Low) 04/28/2019 03:07 EST Platelet Count 214 K/uL 04/28/2019 03:07 EST MPV 11.3 fL 04/28/2019 03:07 EST RDW 13.0 % 04/28/2019 03:07 EST Neut % 75.8 % (High) 04/28/2019 03:07 EST Neut # 7.41 K/uL (High) 04/28/2019 03:07 EST Lymph % 12.7 % (Low) 04/28/2019 03:07 EST Lymph # 1.24 x10(3)/uL 04/28/2019 03:07 EST Fisher % 9.2 % (High) 04/28/2019 03:07 EST Fisher # 0.90 K/uL 04/28/2019 03:07 EST Eos % 1.2 % 04/28/2019 03:07 EST Eos # 0.12 x10(3)/uL 04/28/2019 03:07 EST Baso % 0.6 % 04/28/2019 03:07 EST Baso # 0.06 x10(3)/uL 04/28/2019 03:07 EST Slide Review No 04/28/2019 03:07 EST IG# 0.05 x10(3)/uL 04/28/2019 03:07 EST IG% 0.50 % 04/28/2019 03:07 EST Urine Type. U Cath 04/28/2019 08:57 EST Urine Color YELLOW2 04/28/2019 08:57 EST Urine Appearance CLEAR2 04/28/2019 08:57 EST Urine Specific [place] >1.030 (High) 04/28/2019 08:57 EST Urine pH Dipstick 6.5 04/28/2019 08:57 EST Urine Leukocyte Esterase NEGATIVE2 04/28/2019 08:57 EST Urine Nitrite NEGATIVE2 04/28/2019 08:57 EST Urine Protein Dipstick NEGATIVE2 04/28/2019 08:57 EST Urine Glucose Dipstick >=1000 (Abnormal) 04/28/2019 08:57 EST Urine Ketones Dipstick NEGATIVE2 04/28/2019 08:57 EST Urine Urobilinogen Dipstick 1.0 04/28/2019 08:57 EST Urine Bilirubin Dipstick NEGATIVE2 04/28/2019 08:57 EST Urine Blood Dipstick MODERATE2 (Abnormal) 04/28/2019 08:57 EST Ur RBC 10-20 (Abnormal) 04/28/2019 08:57 EST Ur WBC 0-2 04/28/2019 08:57 EST Ur Bacteria Trace (Abnormal) 04/28/2019 08:57 EST documented in this encounter Plan of Treatment Not on file documented as of this encounter Visit Diagnoses Not on filedocumented in this encounter
--- OUTSIDE RECORDS SUMMARY | 2024-02-20 09:21 | XMS_ITS | Encounter Summary ---
Author Organization [employer] Address [address] [place] [address] Care Team Providers Care Assembler Steam And Gas Turbine Name Role Phone Unavailable Primary Care Provider Unavailabl e Encounter Details Date Type Department Care Team (Late st Contact Info) Description 04/25/2019 Historic Encounter [address] [address] Provider, Luciano Bronson MD Social [...] Priority Date/Time Associated Diagnosis Comments GLUCOSE-POC Routine 04/25/2019 11:53 PM EST documented in this encounter Results * (ABNORMAL) Glucose, Point of Care (04/25/2019 11:53 PM EST) Glucose POC2 169(H) 70 - 110 mg/dL 04/26/2019 4:[address] [facility] Watch Engine Operator [id number] 04/26/2019 4:[address] [facility] Device SN [id number] 04/26/2019 4:[address] [facility] Device Comment1 No action Require 04/26/2019 4:[address] [facility] Blood 04/25/2019 11:5 3 PM EST 04/26/2019 5:00 AM EST [facility] Historical Provider POINT OF CARE TEST OR DERABLES Final Result [facility] [address] [phone] documented in this encounter Visit Diagnoses Not on filedocumented in this encounter
--- OUTSIDE RECORDS SUMMARY | 2024-02-20 09:21 | XMS_ITS | Encounter Summary ---
Author Organization [employer] Address [address] [place] [address] Care Team Providers Care Pace Analyst Name Role Phone Unavailable Primary Care Provider Unavailabl e Encounter Details Date Type Department Care Team (Late st Contact Info) Description 04/26/2019 Transcribed Document [address] [address] Ashia [facility] MD Aiyana Social History Tobacco Use Types Packs/Day Years Used Date Smoking Tobacco: Never Assessed Comments Unknown Sex and Gender Information Value Date Recorded Sex Assigned at Not on file Legal Sex Female 6:01 PM CDT Gender Identity Not on file Sexual Orientation Not on file documented as of this encounter Miscellaneous Notes * Cerner Conversion Note - [facility] Aiyana ProviderMD - 04/26/2019 6:00 AM EST Chart Check - Review Order Profile Entered On: 04/26/2019 4:20 EST Performed On: 04/26/2019 5:00 EST by Daniela Buckner RN Chart Check Powerplans Initiated/Discontinued as Appropriate : Yes All Active Orders Reviewed : Yes Daniela Buckner RN - 04/26/2019 4:20 EST Electronically signed by Carito [facility] Conversion Elect Equip Maint Eng Cerner at 08/23/2022 11:19 AM CDT documented in this encounter Plan of Treatment Not on file documented as of this encounter Visit Diagnoses Not on filedocumented in this encounter
--- OUTSIDE RECORDS SUMMARY | 2024-02-20 09:21 | XMS_ITS | Encounter Summary ---
Author Organization [employer] Address [address] [place] [address] Care Team Providers Care Rn Delivery Name Role Phone Unavailable Primary Care Provider Unavailabl e Encounter Details Date Type Department Care Team (Late st Contact Info) Description 04/28/2019 Historic Encounter [address] [address] Provider, Luciano Bronson MD Social [...] Procedure Name Priority Date/Time Associated Diagnosis Comments [facility] ([facility] BK DATA CONV) Routine 04/28/2019 3:07 AM EST documented in this encounter Results * (ABNORMAL) [facility] ([facility] BKR DATA CONV) (04/28/2019 3:07 AM EST) Glucose Level 266(H) 74 - 106 mg/dL 04/28/2019 8:57 AM EST Comment: \.br\[facility] has become aware of sulfasalazine and [...] administration of the drug. Blood Urea Nitrogen 14 7 - 22 mg/dL 04/28/2019 8:57 AM EST Creatinine Level 0.60 0.55 - 1.02 mg/dL 04/28/2019 8:57 AM EST Sodium Level 138 136 - 146 mmol/L 04/28/2019 8:57 AM EST Potassium Level 3.5 3.5 - 5.1 mmol/L 04/28/2019 8:57 AM EST Chloride Level 102 102 - 112 mmol/L 04/28/2019 8:57 AM EST Carbon Dioxide Level 31 21 - 32 mmol/L 04/28/2019 8:57 AM EST Anion Gap 8(L) 9 - 20 04/28/2019 8:57 AM EST Calcium Level 8.6 8.4 - 10.1 mg/dL 04/28/2019 8:57 AM EST Bun/Creatinine 23.3(H) 8.0 - 20.0 04/28/2019 8:57 AM EST eGFR NonAfrican >60 >=60 mL/min/1. 73m2 04/28/2019 8:57 AM EST Comment:GFR <60 suggests chr onic kidney disease, if found over 3 month period.\.br\GFR <15 indicates renal failure. eGFR >60 >=60 mL/min/1. 73m2 04/28/2019 8:57 AM EST Comment:GFR <60 suggests chr onic kidney disease, if found over 3 month period.\.br\GFR <15 indicates renal failure. Blood 04/28/2019 3:07 AM EST 04/28/2019 8:48 AM EST [facility] Historical Provider LAB BLOOD ORDERABLES Final Result [facility] [address] [place], [place] [address] [phone] documented in this encounter Visit Diagnoses Not on filedocumented in this encounter
--- OUTSIDE RECORDS SUMMARY | 2024-02-20 09:21 | XMS_ITS | Encounter Summary ---
Author Organization [employer] Address [address] [place] [address] Care Team Providers Care Fitness Coach Name Role Phone Unavailable Primary Care Provider Unavailabl e Encounter Details Date Type Department Care Team (Late st Contact Info) Description 04/25/2019 Transcribed Document [facility] [address] [address] [facility] [address] [place] [address] Meliza Downs Jr., MD [address] [place] [address] [address] Social History Tobacco Use Types Packs/Day Years Used Date Smoking Tobacco: Never Assessed Comments Unknown Sex and Gender Information Value Date Recorded Sex Assigned at Not on file Legal Sex Female 6:01 PM CDT Gender Identity Not on file Sexual Orientation Not on file documented as of this encounter Miscellaneous Notes * Cerner Conversion Note - Meliza Downs Jr., MD - 04/25/2019 6:47 PM EST Patient: GERTRUDIS DALY Age: 63 Years Sex: Female : 1955 *Operation lumbar laminectomy w/ resection of cauda equina tumor *Preoperative Diagnosis 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
--- OUTSIDE RECORDS SUMMARY | 2024-02-20 09:21 | XMS_ITS | Encounter Summary ---
Author Organization [employer] Address [address] [place] [address] Care Team Providers Care Pediatric Cns Name Role Phone Unavailable Primary Care Provider Unavailabl e Encounter Details Date Type Department Care Team (Late st Contact Info) Description 04/25/2019 Transcribed Document [address] [address] ProviderLuciano MD Social History Tobacco Use Types Packs/Day Years Used Date Smoking Tobacco: Never Assessed Comments Unknown Sex and Gender Information Value Date Recorded Sex Assigned at Not on file Legal Sex Female 6:01 PM CDT Gender Identity Not on file Sexual Orientation Not on file documented as of this encounter Miscellaneous Notes * Cerner Conversion Note - [facility] Aiyana ProviderMD - 04/25/2019 10:00 PM EST RX Interventions Entered On: 04/25/2019 18:13 EST Performed On: 04/25/2019 18:13 EST by NOAH ZAMUDIO RPh Clinical Interventions Clarify Drug Order : Yes NOAH ZAMUDIO RPh - 04/25/2019 18:13 EST Clarify Drug Order Clarify Drug Order, Order : need dose clarified once on floor Clarify Drug Order, Value : 0 Dollar Clarify Drug Order, Time : 10 Minute(s) NOAH ZAMUDIO RPh - 04/25/2019 18:13 EST documented in this encounter Plan of Treatment Not on file documented as of this encounter Visit Diagnoses Not on filedocumented in this encounter
--- OUTSIDE RECORDS SUMMARY | 2024-02-20 09:21 | XMS_ITS | Encounter Summary ---
Author Organization [employer] Address [address] [place] [address] Care Team Providers Care Help Desk Supervisor Name Role Phone Unavailable Primary Care Provider Unavailabl e Encounter Details Date Type Department Care Team (Late st Contact Info) Description 04/23/2019 Historic Encounter [facility] Radiology [address] [place] [address] Guero Schwartz MD [address] [place] [address] Social History Tobacco Use Types Packs/Day Years [...] Procedure Name Priority Date/Time Associated Diagnosis Comments MR SPINE THORACIC WITHOUT & WITH ONE PLANE Routine 04/23/2019 2:53 PM EST documented in this encounter Results * MR spine thoracic without & with one plane (04/23/2019 2:53 PM EST) Anatomical Region Laterality Modality Magnetic Resonan ce 04/23/2019 2:53 PM EST Narrative 04/24/2019 1:51 PM EST MR THORACIC SPINE WITHOUT AND WITH CONTRAST\.br\.br\HISTORY: Spinal canal mass; 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 Alignment is normal. The marrow\.br\signal pattern is normal.\.br\.br\Thoracic spinal cord shows normal signal and contour. There is no\.br\abnormal enhancement present. Curvilinear enhancement along the anterior\.br\aspect of the lower thoracic spinal cord is considered to be vascular in\.br\nature.\.br\.br\No levels of significant disc disease are present. There is no canal\.br\stenosis or cord compression. Small bilateral pleural effusions are\.br\present.\.br\ ?? \.br\IMPRESSION: No evidence of canal stenosis, cord compression or cord\.br\lesion.\.br\ Procedure Note Provider, Historical, - 08/29/2022 MR THORACIC SPINE WITHOUT AND WITH CONTRAST\.br\.br\HISTORY: Spinal canalmass; D43.4.\.br\.br\TECHNIQUE: Multiplanar MR, without and with contrastadministration.\.br\.br\FINDINGS: No acute fracture is present. Alignmentis normal. The marrow\.br\signal pattern is normal.\.br\.br\Thoracic spinal cord showsnormal signal and contour. There is no\.br\abnormal enhancement present.Curvilinear enhancement along the anterior\.br\aspect of the lowerthoracic spinal cord is considered to be vascular in\.br\nature.\.br\.br\No levels of significant disc disease arepresent. There is no canal\.br\stenosis or cord compression. Smallbilateral pleural effusions are\.br\present.\.br\ \.br\IMPRESSION: Noevidence of canal stenosis, cord compression or cord\.br\lesion.\.br\ us Guero Schwartz MD IMG MRI ORDERABLES Final Resul t documented in this encounter Visit Diagnoses Not on filedocumented in this encounter
--- OUTSIDE RECORDS SUMMARY | 2024-02-20 09:21 | XMS_ITS | Encounter Summary ---
Author Organization [employer] Address [address] [place] [address] Care Team Providers Care Mat Gauger Name Role Phone Unavailable Primary Care Provider Unavailabl e Encounter Details Date Type Department Care Team (Late st Contact Info) Description 04/25/2019 Transcribed Document [address] [address] ProviderLuciano MD Social History Tobacco Use Types Packs/Day Years Used Date Smoking Tobacco: Never Assessed Comments Unknown Sex and Gender Information Value Date Recorded Sex Assigned at Not on file Legal Sex Female 6:01 PM CDT Gender Identity Not on file Sexual Orientation Not on file documented as of this encounter Miscellaneous Notes * Cerner Conversion Note - [facility] Aiyana ProviderMD - 04/25/2019 6:45 PM EST Pain Assessment Entered On: 04/28/2019 5:45 EST Performed On: 04/27/2019 21:07 EST by Aruna Villasenor RN Intervention Information: acetaminophen-oxyCODONE Performed by Aruna Villasenor RN on 04/27/2019 20:07:00 EST acetaminophen-oxyCODONE,2Tab Oral,Breakthrough Pain Pain Assessment Pain Assessment : Follow-up assessment Pain Scale Goal : 4 Pain Scale Used : 0-10 Scale Location : Back Onset : Acute Quality : Aching Pain Radiation : No Pain Improved by : Medication Pain Worsened by : Movement Pain Intervention, Drug : Medicated Pain Improved by Intervention : Yes Aruna Villasenor RN - 04/28/2019 5:45 EST Pain Scale Intensity : 3 Aruna Villasenor RN - 04/28/2019 5:45 EST Image 4 - Images currently included in the form version of this document have not been included in the text rendition version of the form. documented in this encounter Plan of Treatment Not on file documented as of this encounter Visit Diagnoses Not on filedocumented in this encounter
--- OUTSIDE RECORDS SUMMARY | 2024-02-20 09:21 | XMS_ITS | Encounter Summary ---
Author Organization [employer] Address [address] [place] [address] Care Team Providers Care Real Estate Appraiser Supervisor Name Role Phone Unavailable Primary Care Provider Unavailabl e Encounter Details Date Type Department Care Team (Late st Contact Info) Description 04/28/2019 Transcribed Document [address] [address] Provider, Luciano Bronson MD Social History Tobacco Use Types Packs/Day Years Used Date Smoking Tobacco: Never Assessed Comments Unknown Sex and Gender Information Value Date Recorded Sex Assigned at Not on file Legal Sex Female 6:01 PM CDT Gender Identity Not on file Sexual Orientation Not on file documented as of this encounter Miscellaneous Notes * Cerner Conversion Note - [facility] Aiyana ProviderMD - 04/28/2019 2:49 PM EST UM Authorization Entered On: 04/28/2019 13:49 EST Performed On: 04/28/2019 13:49 EST by Gali Newman Rn-Utilization Review Primary Insurance Authorization Authorization and Policy Numbers : Insurance 1 Health Plan: [employer] MEDICARE REPL Policy Number: [id number] Authorization Number: [id number] Insurance Primary Name : Mariela [id number] Authorization Status-Primary : Awaiting callback Authorization Number-Primary : [id number] Authorized Service Begin Date-Primary : 04/25/2019 EST Historical Authorization Comments-Primary : Comment 1: clinicals faxed via [employer] for cont stay (only 1 day approved) (BULMARO DUONG, RN-Utilization Review 04/26/2019 13:11) Comment 2: per [employer] inpt approved 1 day auth# [id number] (FRANCY MILIAN, Cadd Manager 04/24/2019 13:26) Gali Newman Rn-Utilization Review - 04/28/2019 13:49 EST Electronically signed by [facility], [facility] Conversion Family Resource Management Professor Cerner at 08/23/2022 11:19 AM CDT documented in this encounter Plan of Treatment Not on file documented as of this encounter Visit Diagnoses Not on filedocumented in this encounter
--- OUTSIDE RECORDS SUMMARY | 2024-02-20 09:21 | XMS_ITS | Encounter Summary ---
Author Organization [employer] Address [address] [place] [address] Care Team Providers Care Hydraulic Press Servicer Name Role Phone Unavailable Primary Care Provider Unavailabl e Encounter Details Date Type Department Care Team (Late st Contact Info) Description 04/25/2019 Transcribed Document [address] [address] ProviderLuciano MD Social History Tobacco [...] [facility] Aiyana ProviderMD - 04/25/2019 6:44 PM EST Pain Assessment Entered On: 04/26/2019 21:15 EST Performed On: 04/26/2019 20:17 EST by Daniela Buckner RN Intervention Information: HYDROmorphone Performed by Daniela Buckner RN on 04/26/2019 19:47:00 EST HYDROmorphone,0.5mg IV Push,Right Hand,Pain (Severe 7-10) Pain Assessment Pain Assessment : Follow-up assessment Pain Scale Goal : 4 Pain Scale Used : 0-10 Scale Daniela Buckner RN - 04/26/2019 21:15 EST Pain Scale Intensity : 7 Daniela Buckner RN - 04/26/2019 21:15 EST Image 4 - Images currently included in the form version of this document have not been included in the text rendition version of the form. documented in this encounter Plan of Treatment Not on file documented as of this encounter Visit Diagnoses Not on filedocumented in this encounter
--- OUTSIDE RECORDS SUMMARY | 2024-02-20 09:21 | XMS_ITS | Encounter Summary ---
Author Organization [employer] Address [address] [place] [address] Care Team Providers Care Woodwind Instrument Repairer Name Role Phone Unavailable Primary Care Provider Unavailabl e Encounter Details Date Type Department Care Team (Late st Contact Info) Description 04/28/2019 Transcribed Document [address] [address] Provider, Luciano Bronson MD Social [...] [facility] Aiyana ProviderMD - 04/28/2019 2:51 PM EST UM Authorization Entered On: 04/28/2019 13:51 EST Performed On: 04/28/2019 13:51 EST by Gali Newman Rn-Utilization Review Primary Insurance Authorization Authorization and Policy Numbers : Insurance 1 Health Plan: [employer] MEDICARE REPL Policy Number: [id number] Authorization Number: [id number] Insurance Primary Name : Mariela [id number] Authorization Status-Primary : Awaiting callback Authorization Number-Primary : [id number] Authorized Service Begin Date-Primary : 04/25/2019 EST Authorization Comments-Primary : lvm with brigette lui with [facility] for c/s . acb Historical Authorization Comments-Primary : Comment 1: clinicals faxed via [employer] for cont stay (only 1 day approved) (BULMARO DUONG RN-Utilization Review 04/26/2019 13:11) Comment 2: per [employer] inpt approved 1 day auth# [id number] (FRANCY MILIAN, Electronics Recycler 04/24/2019 13:26) Gali Newman Rn-Utilization Review - 04/28/2019 13:51 EST Electronically signed by [facility] Conversion Telecommunications Sales Representative Cerner at 08/23/2022 11:19 AM CDT documented in this encounter Plan of Treatment Not on file documented as of this encounter Visit Diagnoses Not on filedocumented in this encounter
--- OUTSIDE RECORDS SUMMARY | 2024-02-20 09:21 | XMS_ITS | Encounter Summary ---
Author Organization [employer] Address [address] [place] [address] Care Team Providers Care Gang Investigator Name Role Phone Unavailable Primary Care Provider Unavailabl e Encounter Details Date Type Department Care Team (Late st Contact Info) Description 04/25/2019 Historic Encounter [facility] Radiology [address] [place] [address] Erendira Joe MD [address] [place] [address] Social History Tobacco Use Types Packs/Day Years [...] Name Priority Date/Time Associated Diagnosis Comments [place] NARROW GAUGE OPERATOR IN OR 30 MINUTE INCREMENTS Routine 04/25/2019 12:30 PM EST documented in this encounter Results * [place] pharmacy grad intern in or 30 minute increments (04/25/2019 12:30 PM EST) Anatomical Region Laterality Modality Radiographic Sri ging 04/25/2019 12:3 0 PM EST Narrative 04/28/2019 2:28 PM EST FLUOROSCOPY IN THE OR\.br\.br\HISTORY: Back pain.\.br\.br\FINDINGS: Fluoroscopy was provided by the radiology department for\.br\visualization of instrumentation in the lumbar spine. 1 spot film was\.br\submitted.\.br\.br\FLUOROSCOPY TIME: 10.3 minutes.\.br\.br\IMPRESSION:Lumbar spine surgery.\.br\.br\.br\Please see the operative report.\.br\.br\.br\.br\.br\Images reviewed, interpreted, and dictated by Dr. Erendira Joe.\.br\Transcribed by Oralia Chan PA-C.\.br\.br\I have personally viewed, interpreted and dictated the examination. I\.br\have read and agree with the above final transcribed report.\.br\ Procedure Note Provider, MD Aiyana - 08/29/2022 FLUOROSCOPY IN THE OR\.br\.br\HISTORY: Back pain.\.br\.br\FINDINGS:Fluoroscopy was provided by the radiology department for\.br\visualizationof instrumentation in the lumbar spine. 1 spot filmwas\.br\submitted.\.br\.br\FLUOROSCOPY TIME: 10.3 minutes.\.br\.br\IMPRESSION:Lumbar spine surgery.\.br\.br\.br\Pleasesee the operative report.\.br\.br\.br\.br\.br\Images reviewed,interpreted, and dictated by Dr. Erendira Joe.\.br\Transcribed by KIRSTEN Mcmanus.\.br\.br\I have personally viewed, interpreted and dictated the examination. I\.br\have read andagree with the above final transcribed report.\.br\ Erendira Joe MD IMG FLUOROSCOPY ORDERABLES Rosie l Result documented in this encounter Visit Diagnoses Not on filedocumented in this encounter
--- OUTSIDE RECORDS SUMMARY | 2024-02-20 09:21 | XMS_ITS | Encounter Summary ---
Author Organization [employer] Address [address] [place] [address] Care Team Providers Care Shovel Logger Name Role Phone Unavailable Primary Care Provider Unavailabl e Encounter Details Date Type Department Care Team (Late st Contact Info) Description 04/26/2019 Transcribed Document [facility] [address] [place] [address] ProviderLuciano MD Social History Tobacco Use Types Packs/Day Years Used Date Smoking Tobacco: Never Assessed Comments Unknown Sex and Gender Information Value Date Recorded Sex Assigned at Not on file Legal Sex Female 6:01 PM CDT Gender Identity Not on file Sexual Orientation Not on file documented as of this encounter Miscellaneous Notes * Cerner Conversion Note - [facility] Aiyana ProviderMD - 04/26/2019 3:00 AM EST [employer] Details Entered On: 04/26/2019 0:18 EST Performed On: 04/26/2019 2:00 EST by Daniela Buckner RN Order Details Transport Mode Order Detail : Bed (including specialty) Isolation Precautions Order Detail : Standard Precautions IV Order Detail : 1 Oxygen Order Detail : 0 Nurse Collect Order Detail : 1 Lift/Transfer : Moderate assist Central Line Order Detail : No Room Service : Appropriate Arterial Line : Yes Daniela Buckner RN - 04/26/2019 0:18 EST documented in this encounter Plan of Treatment Not on file documented as of this encounter Visit Diagnoses Not on filedocumented in this encounter
--- OUTSIDE RECORDS SUMMARY | 2024-02-20 09:21 | XMS_ITS | Encounter Summary ---
Author Organization [employer] Address [address] [place] [address] Care Team Providers Care Networking Engineer Name Role Phone Unavailable Primary Care Provider Unavailabl e Encounter Details Date Type Department Care Team (Late st Contact Info) Description 04/27/2019 Transcribed Document [address] [address] Alverto Murphy MD [address] [place] [address] Social History Tobacco Use Types Packs/Day Years Used Date Smoking Tobacco: Never Assessed Comments Unknown Sex and Gender Information Value Date Recorded Sex Assigned at Not on file Legal Sex Female 6:01 PM CDT Gender Identity Not on file Sexual Orientation Not on file documented as of this encounter Miscellaneous Notes * Cerner Conversion Note - Alverto Murphy MD - 04/27/2019 3:02 PM EST Patient: GERTRUDIS DALY Age: 63 years Sex: Female : 1955 Associated Diagnoses: None Author: ALVERTO MURPHY MD-INT CONSULT Chief Complaint: Dr Ortiz requested medical management [...] metFORMIN Blurred vision Neurontin Hallucinations spironolactone Actos REVIEW OF SYMPTOMS EXAM Vitals Signs (last 24 hrs) Last Charted Minimum Maximum Temp 99.1 (APR 27 12:00) 99.1 (APR 27 12:00) H 100.3 (APR 26 20:00) Mon HR 77 (APR 27 12:00) 72 (APR 27 11:00) 110 (APR 26 17:00) Resp Rate H 23 (APR 27 12:00) 17 (APR 27 00:00) H 32 (APR 27 09:00) SBP 111 (APR 27 12:00) L 86 (APR 27 11:00) H 156 (APR 26 15:00) DBP L 54 (APR 27 12:00) L 48 (APR 27 11:00) 74 (APR 26 15:00) MAP 78 (APR 27 12:00) 61 (APR 27 11:00) 106 (APR 26 15:00) SpO2 L 93 (APR 27 12:00) L 92 (APR 26 23:00) 97 (APR 26 15:00) WD WN white woman in no distress; pleasant, cooperative, good historian; and PT at bedside nc/at, eomi, PEERL, pink conjunctiva, moist mucous membranes, no thyromegaly or cervical lymphadenopathy; nc at 2L =expansion b/l without wheezes rales or rhonchi non-displaced PMI, reg s1, s2 ABD is soft non-tender, non-distended, norm bowel sounds skin warm, dry without rashes ext: without edema, no calf tenderness neuro: cn 2-12 intact; no gross motor -sensory deficits psych: normal affect, fair mood Labs Most Recent Last 28 days CBC Results-Most Recent Last 28 Days Event Name Event Result Date/Time WBC 7.8 K/uL 04/15/19 08:32:00 RBC 5.73 Million/uL High 04/15/19 08:32:00 Hgb 16.7 g/dL High 04/15/19 08:32:00 Hct 51.7 % High 04/15/19 08:32:00 MCV 90.2 fL 04/15/19 08:32:00 MCH 29.1 pg 04/15/19 08:32:00 MCHC 32.3 Gram/dL 04/15/19 08:32:00 Platelet Count 287 K/uL 04/15/19 08:32:00 MPV 11.2 fL 04/15/19 08:32:00 RDW 13.2 % 04/15/19 08:32:00 Slide Review No 04/15/19 08:32:00 BMP Results (Most Recent Last 28 Days) Event Name Event Result Date/Time Sodium Level 136 mmol/L 04/15/19 08:32:00 Potassium Level 4 mmol/L 04/15/19 08:32:00 Chloride Level 103 mmol/L 04/15/19 08:32:00 Carbon Dioxide Level 29 mmol/L 04/15/19 08:32:00 Anion Gap 8 Low 04/15/19 08:32:00 Glucose Level 148 mg/dL High 04/15/19 08:32:00 Blood Urea Nitrogen 16 mg/dL 04/15/19 08:32:00 Creatinine Level 0.7 mg/dL 04/15/19 08:32:00 eGFR 123 mL/min/1.73m2 04/21/19 09:37:00 eGFR NonAfrican 101 mL/min/1.73m2 04/21/19 09:37:00 Bun/Creatinine 22.9 High 04/15/19 08:32:00 Calcium Level 9.8 mg/dL 04/15/19 08:32:00 Other Lab Results (Most Recent Last 28 Days) Event Name Event Result Date/Time Albumin Level 3.7 Gram/dL 04/15/19 08:32:00 MRI: IMPRESSION: 1. Smoothly marginated homogeneously enhancing extra-axial mass overlying the right frontoparietal region measuring up to 24 mm, favored to represent a meningioma. Dural metastasis would be considered much less likely. 2. Remaining brain parenchyma is unremarkable. IMPRESSION Cauda equina tumor L3-L5 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 Diabetes Mellitus II HTN Hypoxia 2* to atelectasis PLAN Agree with transfer to med-surg floor from ICU Monitor HTN; add PRN's, hold parameters bowel regimen incentive spirometer PT/OT DVT prophylaxis noted Pain management deferred to surgeon will monitor hb/hct daily for signs of ongoing acute blood loss will monitor bun/cr daily for signs of dehydration, prerenal azotemia will monitor for signs/symptoms of post-op wound infection or hospital acquired infectious process accuchecks qac, qhs for blood glucose monitoring; usual regimen for DM2 already resumed. will continue. add correction insulin resume outpatient medication regimen for comorbidities D/C rex documented in this encounter Plan of Treatment Not on file documented as of this encounter Visit Diagnoses Not on filedocumented in this encounter
--- OUTSIDE RECORDS SUMMARY | 2024-02-20 09:21 | XMS_ITS | Encounter Summary ---
Author Organization [employer] Address [address] [place] [address] Care Team Providers Care It Administrator Name Role Phone Unavailable Primary Care Provider Unavailabl e Encounter Details Date Type Department Care Team (Late st Contact Info) Description 04/25/2019 Transcribed Document [address] [address] Provider, [facility] MD Aiyana Social History Tobacco Use Types Packs/Day Years Used Date Smoking Tobacco: Never Assessed Comments Unknown Sex and Gender Information Value Date Recorded Sex Assigned at Not on file Legal Sex Female 6:01 PM CDT Gender Identity Not on file Sexual Orientation Not on file documented as of this encounter Miscellaneous Notes * Cerner Conversion Note - [facility] Aiyana Provider, - 04/25/2019 1:05 PM EST [facility] Main OR PACU Summary Primary Physician: MELIZA DOWNS MD-[facility] Finalized Date/Time: 04/25/19 20:10:04 Pt. Name: KANG DALYGHANSHYAM Gilbert /Sex: 1955 Female Med Rec #: [id number] Physician: MELIZA DOWNS MD-U Financial #: [id number] Pt. Type: I Room/Bed: NI06/1 Admit/Disch: 04/25/19 06:38:00 - Institution: [facility] Main OR PACU I Case Times Entry 1 In PACU I 04/25/19 17:45:00 Ready for PACU 04/25/19 18:35:00 Discharge Discharge from PACU 04/25/19 19:35:00 I Last Modified By: Owen Barrera RN 04/25/19 20:09:15 Finalized By: Owen Barrera RN Document Signatures Signed By: Owen Barrera RN 04/25/19 20:10 documented in this encounter Plan of Treatment Not on file documented as of this encounter Visit Diagnoses Not on filedocumented in this encounter
--- OUTSIDE RECORDS SUMMARY | 2024-02-20 09:21 | XMS_ITS | Encounter Summary ---
Author Organization [facility] [employer] Address [address] [place] [address] Care Team Providers Care Funeral Director'S Assistant Name Role Phone Unavailable Primary Care Provider Unavailabl e Encounter Details Date Type Department Care Team (Late st Contact Info) Description 04/28/2019 Historic Encounter [address] [address] Provider, Luciano Bronson MD Social [...] Procedure Name Priority Date/Time Associated Diagnosis Comments URINALYSIS UA RFLX MICROSCOPIC CULT IF IND ([facility] BKR DATA CONV) Routine 04/28/2019 8:57 AM EST documented in this encounter Results * (ABNORMAL) URINALYSIS UA RFLX MICROSCOPIC CULT IF IND ([facility] BKR DATA CONV) (04/28/2019 8:57 AM EST) Urine Type. U Cath 04/28/2019 4:31 PM EST Urine Color Yellow 04/28/2019 4:35 PM EST Comment: Substances that cause HIGHLY abnormal urine color may affect the accuracy of URINE CHEMISTRY reagent strip results due to colorimetric interference. ??These include visible levels of blood or bilirubin, drugs containing dyes, and some antibiotics such as nitrofurantoin and riboflavin which can cause markedly abnormal urine coloration. Urine Appearance Clear 04/28/19 20 4:35 PM EST Urine Specific [place] >1.030(H) 1.005 - 1.030 04/28/2019 4:35 PM EST Urine pH Dipstick 6.5 6.0 - 8.0 020 4:35 PM EST Urine Leukocyte Esterase Negative Negative 04/28/2019 4:35 PM EST Urine Nitrite Negative Negative 04/28/2019 4:35 PM EST Urine Protein Dipstick Negative Negative 04/28/2019 4:35 PM EST Comment:Use of urine preserv atives may elevate protein results and reduce bilirubin, blood and nitrite results. Urine Glucose Dipstick >=1000(A) Negative 04/28/2019 4:35 PM EST Urine Ketones Dipstick Negative Negative 04/28/2019 4:35 PM EST Urine Urobilinogen Dipstick 1.0 EU/dL 04/28/2019 4:35 PM EST Urine Bilirubin Dipstick Negative Negative 04/28/2019 4:35 PM EST Urine Blood Dipstick Moderate(A) Negative 04/28/2019 4:35 PM EST 04/28/2019 8:57 AM EST 04/28/2019 4:30 PM EST [facility] Historical Provider URINE ORDERABLES Rosie l Result [facility] [address] [phone] documented in this encounter Visit Diagnoses Not on filedocumented in this encounter
--- OUTSIDE RECORDS SUMMARY | 2024-02-20 09:21 | XMS_ITS | Encounter Summary ---
Author Organization [employer] Address [address] [place] [address] Care Team Providers Care Rn Renal Name Role Phone Unavailable Primary Care Provider Unavailabl e Encounter Details Date Type Department Care Team (Late st Contact Info) Description 04/28/2019 Historic Encounter [address] [address] Provider, Luciano Bronson MD Social [...] Priority Date/Time Associated Diagnosis Comments GLUCOSE-POC Routine 04/28/2019 8:47 PM EST documented in this encounter Results * (ABNORMAL) Glucose, Point of Care (04/28/2019 8:47 PM EST) Glucose POC2 166(H) 70 - 110 mg/dL 04/29/2019 1:47 AM EST [facility] Loader Unloader [id number] 04/29/2019 1:47 AM EST [facility] Device SN [id number] 04/29/2019 1:47 AM EST [facility] Device Comment1 Notified Nurse RBV 04/29/2019 1:47 AM EST [facility] Blood 04/28/2019 8:47 PM EST 04/29/2019 1:50 AM EST [facility] Historical Provider POINT OF CARE TEST OR DERABLES Final Result [facility] [address] [phone] documented in this encounter Visit Diagnoses Not on filedocumented in this encounter
--- OUTSIDE RECORDS SUMMARY | 2024-02-20 09:21 | XMS_ITS | Encounter Summary ---
Author Organization [employer] Address [address] [place] [address] Care Team Providers Care Cytotechnologist Supervisor Name Role Phone Unavailable Primary Care Provider Unavailabl e Encounter Details Date Type Department Care Team (Late st Contact Info) Description 04/25/2019 Transcribed Document [address] [address] Provider, Luciano Bronson MD Social [...] [facility] Aiyana ProviderMD - 04/25/2019 7:38 AM EST Admission History, Adult Entered On: 04/25/2019 20:01 EST Performed On: 04/25/2019 6:38 EST by Daniela Buckner RN Advance Directive Patient has Advance Directive *Q : Yes, Advance Directive not with the patient Advance Directive Type : Living will Copy Advance Directive Verified/on Chart : No Daniela Buckner RN - 04/25/2019 19:52 EST Anesthesia/Transfusion History Family History of Anesthesia Reaction : No prior transfusion(s) Blood Transfusion Acceptable to Patient : Yes Transfusion History : Prior anesthesia reaction Type of Anesthesia Reaction : Excessive somnolence, Excessive nausea/vomiting Family History of Anesthesia Reaction : None Daniela Buckner RN - 04/25/2019 19:52 EST Functional Assessment Living Situation : Home Patient Lives With : Spouse Current Home Treatments : Blood glucose monitoring Daniela Buckner RN - 04/25/2019 19:52 EST General Info Preferred Name : Gertrudis Arrived From : Home Mode of Arrival on Unit : Ambulatory Legal Guardian : Spouse Support Person/Pt Rep Name : Ya Navarro-Friend Contact Password : mom Support Person/Pt Rep Contact Information : [phone] Want Family/Rep/Phys Notified of Admit : No Emergency Contact #1 : Michelle Gonzalez Emergency Contact #1 cell Emergency Contact #1 Relationship : Emergency Contact #2 : Kandi Burt Emergency Contact #2 cell Emergency Contact #2 Relationship : daughter Primary Language : Finnish Preferred Communication Mode : Verbal Communication Barrier : None Daniela Buckner RN - 04/25/2019 19:52 EST Fall Risk Scales ABCs Fall Injury Risk Identification : None BERKOWITZ Hx Falls Immediate/Within 3 Months : No Berkowitz Secondary Diagnosis : Yes BERKOWITZ Use of Ambulatory Aid : Bed rest/Nurse assist BERK[place]ITZ IV Therapy or IV Access : Yes Berkowitz Gait/Transferring : Normal, bedrest, immobile Berkowitz Mental Status : Oriented to own ability Berkowitz Fall Risk Score : 35 BERK[place] Fall Scale Risk Level : 25-45 Medium Risk [place] Fall Interventions : Adequate lighting, Assistive devices within reach, Bed in low position, Call device within reach, Frequent orientation to call device, Frequent orientation to surroundings, Hourly comfort/safety rounds, Personal items within reach, Reinforced to call for assistance before getting out of bed, Room free of clutter/spills, Upper side-rails up, Wheels locked, Wires/Cords secured Daniela Buckner RN - 04/25/2019 19:52 EST Health Histories Smoking Status : Never (less than 100 in lifetime; none in last 30 days) Smokeless Tobacco Status : Never Daniela Buckner RN - 04/25/2019 19:52 EST Social History (As Of: 04/25/2019 20:01:03 EST) Tobacco: Never (less than 100 in lifetime) Smoking Status. Never Smokeless Tobacco Status. (Last Updated: 04/15/2019 09:19:33 EST by TIA SHARMA, IAN) Alcohol: Alcohol Use Comment none. (Last Updated: 04/15/2019 09:19:39 EST by TIA SHARMA, RN) Substance Abuse: Drug Use Hx: No. Use in Last 12 Months: No. (Last Updated: 04/15/2019 09:19:44 EST by TIA SHARMA RN) Height and Weight, Clinical Dosing Height Source : Measured Height Entry Format : [place] Height, Feet : 5 ft(Converted to: 152 cm, 60 Inch) Height, Inches : 2 Inch(Converted to: 0 ft 2 Inch, 5.08 cm) Clinical Height : 157.48 cm Weight Source : Standing scale Weight Entry Format : [place] Clinical Dosing Weight : 82.14 kg Weight, Pounds : 180.7 lb Body Surface Area (BSA) : 1.83 m2 Body Mass Index : 33.1 kg/m2 (HI) [place] Body Weight : 50 kg Daniela Buckner RN - 04/25/2019 19:52 EST Infectious Disease History Physical contact outside [place] in the last 30 days : No Infectious Disease History : None Isolation Needed : Standard Tuberculosis Symptoms : Fatigue, Night Sweats Daniela Buckner RN - 04/25/2019 19:52 EST Influenza Vaccine Asmt, Adult Previous Vaccines from Immunization Schedule : No qualifying data available. Influenza Immunization, Current Season : No Inactivated Flu Vaccine Contraindications : No contraindications to inactivated influenza vaccine Transplant Workup/Recent Transplant : No Order for Influenza Vaccine : Declined Vaccination Danilea Buckner RN - 04/25/2019 19:52 EST Pneumococcal Vaccine Previous Vaccines from Immunization Schedule : No qualifying data available. Pneumonia Immunization Received : No Pneumococcal Risk Assessment < Age 65 : None Daniela Buckner RN - 04/25/2019 19:52 EST Nutrition History Eating Poorly Due to Decreased Appetite : No Unplanned Weight Loss in Past 3-6 Months : No Malnutrition Screening Tool Total(mal) : 0 Malnutrition Screening Tool Risk Level : Patient not at risk Daniela Buckner RN - 04/25/2019 19:52 EST [place] Suicide Severity Rating Scale (C-SSRS) CSSRS Past Month Wish to be : No CSSRS Past Month Suicidal Thoughts : No CSSRS Lifetime Suicide Behavior : No Suicide Severity Rating Score : 0 Suicide Severity Rating : No Additional Care Required at this time Daniela Buckner RN - 04/25/2019 19:52 EST Psychosocial History Do You Have a History of the Following? : Anxiety, Depression, Other: panic attacks Currently in Unsafe Situation : No Daniela Buckner RN - 04/25/2019 19:52 EST Sleep Apnea Risk Assmt BiPAP/CPAP Ordered for Home Use : Yes Hx of Obstructive Sleep Apnea Diagnosis : Yes BiPAP/CPAP Used at Home : No Reason BiPAP/CPAP Not Used at Home : doesn't have one, couldn't sleep with mask on Age over 50 Years Old : Yes Gender Male : No Daniela Buckner RN - 04/25/2019 19:52 EST Valuables and Belongings Valuables and Belongings : No clothing, No comfort items Daniela Buckner RN - 04/25/2019 19:52 EST Electronically signed by Carito [facility] Conversion Fish Boning Machine Feeder Cerner at 08/23/2022 11:19 AM CDT documented in this encounter Plan of Treatment Not on file documented as of this encounter Visit Diagnoses Not on filedocumented in this encounter
--- OUTSIDE RECORDS SUMMARY | 2024-02-20 09:21 | XMS_ITS | Encounter Summary ---
Author Organization [employer] Address [address] [place] [address] Care Team Providers Care Garnett Fixer Name Role Phone Unavailable Primary Care Provider Unavailabl e Encounter Details Date Type Department Care Team (Late st Contact Info) Description 04/25/2019 Transcribed Document [address] [address] Provider, Luciano Bronson MD Social History Tobacco Use Types Packs/Day Years Used Date Smoking Tobacco: Never Assessed Comments Unknown Sex and Gender Information Value Date Recorded Sex Assigned at Not on file Legal Sex Female 6:01 PM CDT Gender Identity Not on file Sexual Orientation Not on file documented as of this encounter Miscellaneous Notes * Cerner Conversion Note - [facility] Aiyana ProviderMD - 04/25/2019 6:44 PM EST Evaluation, Occupational Therapy Entered On: 04/26/2019 11:59 EST Performed On: 04/26/2019 11:35 EST by FLORES JONES OTR/Ofelia General Information, OT Therapy Diagnosis, OT : Decreased I/ADL status; functional mobility Onset of Problem, OT : 04/25/2019 EST Co-treated by, OT : Physical Therapist Precautions in Place : Fall prevention measures, Spinal Precautions General Information Comment, OT : 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 FLORES JONES OTR/Ofelia - 04/26/2019 13:53 EST Visit Type, OT : Initial evaluation FLORES JONES OTR/L - 04/26/2019 11:59 EST Patient Orders : Order Date Order Ordering 04/25/2019 17:44 Occupational Therapy Evaluation and Treatme Ordered By: MELIZA DOWNS MD-SNU Active Diagnoses : No Qualifying Diagnoses Admission Date : 04/25/2019 06:38 Personal Devices : Personal Devices No Devices Recorded Assistive Devices : Assistive Devices No Devices Recorded FLORES JONES OTR/Ofelia - 04/26/2019 14:21 EST General Status Patient Received Status : Supine in bed Treatment Start Time : 04/26/2019 11:22 EST Patient Left Status : Supine in bed, RN/PCT informed, Family/Visitors at bedside, All needs met and within reach Treatment End Time : 04/26/2019 11:35 EST Treatment Time : 13 Minute(s) FLORES JONES OTR/Ofelia - 04/26/2019 13:53 EST History and Environment, OT Living Situation, Therapy : Home Patient Lives With : Spouse Persons Assisting Patient at Home : Spouse Professional Skilled Services : None Persons Providing Information : Patient Home Equipment, Therapy : Walker Walker : Walker, front wheel Stairs : Yes Stair Location(s) : Outside Outside Stairs, Number of Steps : 1 Railing Outside : No FLORES JONES OTR/Ofelia - 04/26/2019 13:53 EST Prior LOF Bathing, OT : Independent Prior LOF Bed Mobility : Independent Prior LOF Upper Body Dressing, OT : Independent Prior LOF Lower Body Dressing, OT : Independent Prior LOF Toileting : Independent Prior LOF Transfer : Independent Prior LOF Grooming, OT : Independent Prior LOF for IADLs, OT : Independent FLORES OJNES OTR/Ofelia - 04/26/2019 13:53 EST Upper Extremity Right UE Active ROM : WFL Right UE Strength : WFL Left UE Active ROM : WFL Left UE Strength : WFL Upper Extremity Strength Impaired : No Right UE Strength : WFL Left UE Strength : WFL Upper Extremity Comment : not formally tested due to pain but appears WFL during activity FLORES JONES OTR/Ofelia - 04/26/2019 13:53 EST Self Care/Home Management, OT Self Feeding Assist Level, OT : Assist, minimal Grooming Assist Level, OT : Assist, moderate Bathing Assist Level, OT : Assist, maximal Upper Body Dressing Assist Level, OT : Assist, moderate Lower Body Dressing Assist Level, OT : Assist, total Toileting Assist Level : Assist, total FLORES JONES OTR/Ofelia - 04/26/2019 13:53 EST Functional Mobility Mobility Grid Bed Roll Left : Rehab Moderate assistance Bed Roll Right : Rehab Moderate assistance Bed Scooting : Rehab Moderate assistance Supine to Sit : Rehab Moderate assistance Sit to Supine : Rehab Moderate assistance FLORES JONES OTR/Ofelia - 04/26/2019 13:53 EST Cognition Assessment, OT Orientation : Oriented x 4 Cognition Assessment, OT : Intact Comprehension Assessment, OT : Intact FLORES JONES OTR/Ofeila - 04/26/2019 13:53 EST Indication Assessment, OT Occupational Therapy Indicated : Yes Problem List, OT : Impaired, bed mobility, Impaired, activities daily living, Impaired, endurance tolerance, Impaired functional mobility, Impaired, sitting balance, Impaired, standing balance, Impaired, transfers, Pain limiting function Potential Barriers, OT : Acuity of illness, Pain FLORES JONES OTR/Ofelia - 04/26/2019 13:53 EST Plan of Care, OT OT Tx Plan/Goals Established w Patient : Yes OT Frequency Rehab : Five days per week OT Duration Rehab : Fourteen days OT Treatments Planned : Activities of daily living, Balance training, Functional mobility training, Safety education, Therapeutic activities, Therapeutic exercises Plan of Care Comment, OT : see goals FLORES JONES OTR/Ofelia - 04/26/2019 13:53 EST Devulcanizer Loader Goals, OT Grooming LTG Grid Goal #1 Activity : Grooming Assist : Independent, modified Date to Meet : 05/10/2019 EST Goal Status : Initial goal FLORES JONES OTR/Ofelia - 04/26/2019 13:53 EST Dressing, Lower Body LTG Grid Goal #1 Activity : Dressing, Lower Body Assist : Assist, moderate Date to Meet : 05/10/2019 EST Goal Status : Initial goal FLORES JONES OTR/Ofelia - 04/26/2019 13:53 EST Toileting LTG Grid Goal #1 Activity : Toileting Assist : Assist, moderate Date to Meet : 05/10/2019 EST Goal Status : Initial goal FLORES JONES OTR/Ofelia - 04/26/2019 13:53 EST Toilet Transfer LTG Grid Goal #1 Activity : Toilet Transfer, Ambulatory Assist : Assist, moderate Date to Meet : 05/10/2019 EST Goal Status : Initial goal FLORES JONES OTR/Ofelia - 04/26/2019 13:53 EST Bed Mobility/ Bed Transfer LTG Grid Goal #1 Activity : Bed Mobility/Bed Transfer Assist : Assist, minimal Date to Meet : 05/10/2019 EST Goal Status : Initial goal FLORES JONES OTR/L - 04/26/2019 13:53 EST Treatment Note Subjective Comment : Patient and RN okd OT this date. Patient's Response to Treatment : Pt tolerated OT fair. Pt had c/o pain at back and BLE of 8-9/10. RN aware and medicating. Additional Objective Information : Pt supine in bed upon OT arrival. Pt sat EOB with Mod A x2. Pt tolerated static sitting for approx 30 seconds. Unable to complete more activity due to pain. Pt was left in bed with call light/phone within reach. Family present and RN informed. Assessment : Pt would benefit from OT to increase functional status. Limtied by pain but great effort. Plan for Treatment : Continue with pts POC per pt tolerance. FLORES JONES OTR/L - 04/26/2019 13:53 EST Pain Assessment Pain Scaled Used : 0-10 Pain scale Pain Score Pre-Intervention : 8 Pain Score During-Intervention : 8 Pain Score Post-Intervention. : 8 Location : Back, Legs, bilateral FLORES JONES OTR/L - 04/26/2019 13:53 EST Image 1 - Images currently included in the form version of this document have not been included in the text rendition version of the form. Anticipated Discharge Needs, OT/PT Anticipated Discharge to : Unable to assess at this time FLORES JONES OTR/L - 04/26/2019 13:53 EST [place] OT Charges OT Eval Moderate Complexity : 1 FLORES JONES OTR/L - 04/26/2019 13:53 EST documented in this encounter Plan of Treatment Not on file documented as of this encounter Visit Diagnoses Not on filedocumented in this encounter
--- OUTSIDE RECORDS SUMMARY | 2024-02-20 09:21 | XMS_ITS | Encounter Summary ---
Author Organization [employer] Address [address] [place] [address] Care Team Providers Care Funnel Coater Name Role Phone Unavailable Primary Care Provider Unavailabl e Encounter Details Date Type Department Care Team (Late st Contact Info) Description 04/28/2019 Transcribed Document [address] [address] Provider, Luciano Bronson MD Social History Tobacco Use Types Packs/Day Years Used Date Smoking Tobacco: Never Assessed Comments Unknown Sex and Gender Information Value Date Recorded Sex Assigned at Not on file Legal Sex Female 6:01 PM CDT Gender Identity Not on file Sexual Orientation Not on file documented as of this encounter Miscellaneous Notes * Cerner Conversion Note - [facility] Aiyana ProviderMD - 04/28/2019 4:19 PM EST UM Authorization Entered On: 04/28/2019 15:20 EST Performed On: 04/28/2019 15:19 EST by Gali Newman Rn-Utilization Review Primary Insurance Authorization Authorization and Policy Numbers : Insurance 1 Health Plan: [employer] MED[employer]ARE REPL Policy Number: [id number] Authorization Number: [id number] Insurance Primary Name : Tanya [id number] Authorization Status-Primary : Awaiting callback Authorization Number-Primary : [id number] Authorized Service Begin Date-Primary : 04/25/2019 EST Authorization Comments-Primary : clinical faxed per [facility] for 04/27 and 04/28 Historical Authorization Comments-Primary : Comment 1: call back from [employer] with tanya requesting clinical be faxed to [phone]. clinical faxed per [facility] (Gali Newman Rn-Utilization Review 04/28/2019 15:17) Comment 2: lvm with brigette rn with [employer] for c/s . acb (Gali Newman, Rn-Utilization Review 04/28/2019 13:51) Comment 3: clinicals faxed via [employer]ner for cont stay (only 1 day approved) (BULMARO DUONG, RN-Utilization Review 04/26/2019 13:11) Comment 4: per [facility] inpt approved 1 day auth# [id number] (FRANCY MILIAN, Consultants Intern 04/24/2019 13:26) Gali Newman, Deya-Utilization Review - 04/28/2019 15:19 EST Electronically signed by Luciano Arzate Conversion Clip Loading Machine Adjuster Cerner at 08/23/2022 11:19 AM CDT documented in this encounter Plan of Treatment Not on file documented as of this encounter Visit Diagnoses Not on filedocumented in this encounter
--- OUTSIDE RECORDS SUMMARY | 2024-02-20 09:21 | XMS_ITS | Encounter Summary ---
Author Organization [employer] Address [address] [place] [address] Care Team Providers Care Secretary Of Police Name Role Phone Unavailable Primary Care Provider Unavailabl e Encounter Details Date Type Department Care Team (Late st Contact Info) Description 04/27/2019 Transcribed Document [address] [address] ProviderLuciano MD Social History Tobacco [...] - [facility] Aiyana ProviderMD - 04/27/2019 6:51 AM EST Height and Weight, Routine Entered On: 04/27/2019 5:52 EST Performed On: 04/27/2019 5:51 EST by Prisca Stephenson Patient Duplicator Punch Operator Height and Weight, Routine Routine Weight Source : Bed scale Routine Weight Entry Format : Metric Routine Weight, Kilograms : 86.5 kg(Converted to: 190 lb 11 oz) Routine Weight Calculation : 86.5 kg Height Source : Measured Height Entry Format : [place] Height, Feet : 5 ft Height, Inches : 2 Inch Clinical Height : 157.48 cm Body Surface Area (BSA), Routine : 1.87 m2 Body Mass Index (BMI), Routine : 34.88 kg/m2 Prisca Stephenson Patient Duplicator Punch Operator - 04/27/2019 5:51 EST documented in this encounter Plan of Treatment Not on file documented as of this encounter Visit Diagnoses Not on filedocumented in this encounter
--- OUTSIDE RECORDS SUMMARY | 2024-02-20 09:21 | XMS_ITS | Encounter Summary ---
Author Organization [employer] Address [address] [place] [address] Care Team Providers Care Furniture Manager Name Role Phone Unavailable Primary Care Provider Unavailabl e Encounter Details Date Type Department Care Team (Late st Contact Info) Description 04/25/2019 Transcribed Document [address] [address] Provider [facility] MD [...] Cerner Conversion Note - [facility] Aiyana ProviderMD - 04/25/2019 6:44 PM EST Pain Assessment Entered On: 04/27/2019 8:44 EST Performed On: 04/27/2019 9:08 EST by Yudy Jay RN Intervention Information: acetaminophen-oxyCODONE Performed by Yudy Jay RN on 04/27/2019 08:08:00 EST acetaminophen-oxyCODONE,1Tab Oral,Pain (Mild 1-3) Pain Assessment Pain Assessment : Follow-up assessment Pain Scale Goal : 4 Pain Improved by Intervention : Yes Yudy Jay RN - 04/27/2019 8:44 EST Electronically signed by Carito [facility] Conversion Steward/Stewardess Banquet Cerner at 08/23/2022 11:19 AM CDT documented in this encounter Plan of Treatment Not on file documented as of this encounter Visit Diagnoses Not on filedocumented in this encounter
--- OUTSIDE RECORDS SUMMARY | 2024-02-20 09:21 | XMS_ITS | Encounter Summary ---
Author Organization [employer] Address [address] [place] [address] Care Team Providers Care Radar Systems Engineer Name Role Phone Unavailable Primary Care Provider Unavailabl e Encounter Details Date Type Department Care Team (Late st Contact Info) Description 04/28/2019 Transcribed Document [address] [address] Provider, Luciano Bronson MD [...] Notes * Cerner Conversion Note - [facility] Aiyana ProviderMD - 04/28/2019 2:50 PM EST UM Authorization Entered On: 04/28/2019 13:50 EST Performed On: 04/28/2019 13:50 EST by Gali Newman Rn-Utilization Review Primary Insurance Authorization Authorization and Policy Numbers : Insurance 1 Health Plan: [employer] MEDICARE REPL Policy Number: [id number] Authorization Number: [id number] Insurance Primary Name : Mariela [id number] Authorization Status-Primary : Awaiting callback Authorization Number-Primary : [id number] Authorized Service Begin Date-Primary : 04/25/2019 EST Historical Authorization Comments-Primary : Comment 1: clinicals faxed via [employer] for cont stay (only 1 day approved) (BULMARO DUONG, RN-Utilization Review 04/26/2019 13:11) Comment 2: per [facility] inpt approved 1 day auth# [id number] (FRANCY MILIAN, Grey Percher 04/24/2019 13:26) Gali Newman Rn-Utilization Review - 04/28/2019 13:50 EST Electronically signed by [facility], [facility] Conversion Principal Web Developer Cerner at 08/23/2022 11:19 AM CDT documented in this encounter Plan of Treatment Not on file documented as of this encounter Visit Diagnoses Not on filedocumented in this encounter
--- OUTSIDE RECORDS SUMMARY | 2024-02-20 09:21 | XMS_ITS | Encounter Summary ---
Author Organization [employer] Address [address] [place] [address] Care Team Providers Care Safety And Occupational Health Manager Name Role Phone Unavailable Primary Care Provider Unavailabl e Encounter Details Date Type Department Care Team (Late st Contact Info) Description 04/27/2019 Historic Encounter [address] [address] Provider, Luciano Bronson MD Social [...] Priority Date/Time Associated Diagnosis Comments GLUCOSE-POC Routine 04/27/2019 4:40 PM EST documented in this encounter Results * (ABNORMAL) Glucose, Point of Care (04/27/2019 4:40 PM EST) Glucose POC2 255(H) 70 - 110 mg/dL 04/27/2019 9:40 PM EST [facility] Commissary Worker [id number] 04/27/2019 9:40 PM EST [facility] Device SN [id number] 04/27/2019 9:40 PM EST [facility] Device Comment1 Notified Nurse RBV 04/27/2019 9:40 PM EST [facility] Blood 04/27/2019 4:40 PM EST 04/27/2019 9:45 PM EST [facility] Historical Provider POINT OF CARE TEST OR DERABLES Final Result [facility] [address] [phone] documented in this encounter Visit Diagnoses Not on filedocumented in this encounter
--- OUTSIDE RECORDS SUMMARY | 2024-02-20 09:21 | XMS_ITS | Encounter Summary ---
Author Organization [employer] Address [address] [place] [address] Care Team Providers Care Tc Operator Name Role Phone Unavailable Primary Care Provider Unavailabl e Encounter Details Date Type Department Care Team (Late st Contact Info) Description 04/27/2019 Transcribed Document [facility] [address] [place] [address] ProviderLuciano MD Social History Tobacco Use Types Packs/Day Years Used Date Smoking Tobacco: Never Assessed Comments Unknown Sex and Gender Information Value Date Recorded Sex Assigned at Not on file Legal Sex Female 6:01 PM CDT Gender Identity Not on file Sexual Orientation Not on file documented as of this encounter Miscellaneous Notes * Cerner Conversion Note - [facility] Aiyana ProviderMD - 04/27/2019 3:00 AM EST Fiberglass Luggage Molder Details Entered On: 04/27/2019 0:30 EST Performed On: 04/27/2019 2:00 EST by Daniela Buckner RN Order Details Transport Mode Order Detail : Bed (including specialty) Isolation Precautions Order Detail : Standard Precautions Order Detail : 0 IV Order Detail : 1 Oxygen Order Detail : 0 Nurse Collect Order Detail : 1 Lift/Transfer : Moderate assist Central Line Order Detail : No Room Service : Appropriate Arterial Line : No Daniela Buckner RN - 04/27/2019 0:30 EST documented in this encounter Plan of Treatment Not on file documented as of this encounter Visit Diagnoses Not on filedocumented in this encounter
--- OUTSIDE RECORDS SUMMARY | 2024-02-20 09:21 | XMS_ITS | Encounter Summary ---
Author Organization [employer] Address [address] [place] [address] Care Team Providers Care Information Systems Director Name Role Phone Unavailable Primary Care Provider Unavailabl e Encounter Details Date Type Department Care Team (Late st Contact Info) Description 04/25/2019 Transcribed Document [address] [address] Provider, Luciano Bronson MD Social History Tobacco Use Types Packs/Day Years Used Date Smoking Tobacco: Never Assessed Comments Unknown Sex and Gender Information Value Date Recorded Sex Assigned at Not on file Legal Sex Female 6:01 PM CDT Gender Identity Not on file Sexual Orientation Not on file documented as of this encounter Miscellaneous Notes * Cerner Conversion Note - [facility] Aiyana ProviderMD - 04/25/2019 6:44 PM EST Evaluation, Physical Therapy Entered On: 04/26/2019 13:31 EST Performed On: 04/26/2019 11:35 EST by AGUILA DANIELS, PT General Information, PT Visit Type, PT : Initial evaluation Patient Orders : Order Date Order Ordering 04/25/2019 17:44 Physical Therapy Eval and Treat Ordered By: MELIZA DOWNS MD-SNU 04/26/2019 11:31 Physical Therapy Eval and Treat Ordered By: MELIZA DOWNS MD-NIYA Active Diagnoses : No Qualifying Diagnoses Therapy Diagnosis, PT : Decreased mobility Onset of Problem, PT : 04/25/2019 EST Admission Date : 04/25/2019 06:38 Co-treated by, PT : Occupational Therapist Personal Devices : Personal Devices No Devices Recorded Assistive Devices : Assistive Devices No Devices Recorded Precautions in Place : Fall prevention measures General Information Comment, PT : Pt here with a schwannoma and had L3-L5 laminectomy with resection of cauda equina tumor by Dr. Downs on 04-25-2019. She is allowed to be up ad barbara during PTx session, then on bedrest the rest of the time per MD order by Dr. Downs on 04-26-2019. She has a history of DM, back pain, panic attacks, RLS, UTI, bronchitis, PATTIE and gastroparesis. AGUILA DANIELS, PT - 04/26/2019 13:19 EST General Status Patient Received Status : Supine in bed Treatment Start Time : 04/26/2019 11:25 EST Patient Left Status : Supine in bed, RN/PCT informed, Family/Visitors at bedside, All needs met and within reach (Comment: and son present [AGUILA DANIELS, PT - 04/26/2019 13:19 EST] ) Treatment End Time : 04/26/2019 11:35 EST Treatment Time : 10 Minute(s) Actual Treatment Time : 10 Minute(s) AGUILA DANIELS, PT - 04/26/2019 13:19 EST History and Environment Living Situation, Therapy : Home Patient Lives With : Spouse Persons Assisting Patient at Home : Spouse Professional Skilled Services : None Persons Providing Information : Patient Home Equipment Therapy, PT : Walker Walker : Walker, front wheel Stairs : Yes Stair Location(s) : Outside Outside Stairs, Number of Steps : 1 Railing Outside : No AGUILA DANIELS, PT - 04/26/2019 13:19 EST Prior Level of Function PT GRID Prior LOF Ambulation, Household : Independent Prior LOF Ambulation, Community : Independent Prior LOF Bed Mobility : Independent Prior LOF Toileting : Independent Prior LOF Transfer : Independent AGUILA DANIELS, PT - 04/26/2019 13:19 EST Upper Extremity Right UE Active ROM : WFL Right UE Strength : WFL Left UE Active ROM : WFL Left UE Strength : WFL AGUILA DANIELS, PT - 04/26/2019 13:19 EST Lower Extremity RLE Active ROM : WFL Right LE Strength : WFL LLE Active ROM : WFL Left LE Strength : WFL AGUILA DANIELS, PT - 04/26/2019 13:19 EST Functional Mobility Mobility Grid Bed Roll Right : Supervision/set-up (Comment: with verbal cues to use bedrail [AGUILA DANIELS, PT - 04/26/2019 13:19 EST] ) Supine to Sit : Rehab Moderate assistance Sit to Supine : Rehab Moderate assistance AGUILA DANIELS, PT - 04/26/2019 13:19 EST Gait Training/Assessment, PT Gait Assistance Level : Unable to assess/activity not appropriate (Comment: Too painful to be up [AGUILA DANIELS, PT - 04/26/2019 13:19 EST] ) AGUILA DANIELS, PT - 04/26/2019 13:19 EST Activity Tolerance, PT Activity Comment : Pt was able to do ROM/MMT and go supine to sit at EOB but only for about 30 seconds then needed to lie back down due to pain. AGUILA DANIELS, PT - 04/26/2019 13:19 EST Cognition Assessment, PT Orientation : Oriented x 4 Safety/Judgment Comment : Good Follows Basic Command Assessment : Yes AGUILA DANIELS, PT - 04/26/2019 13:19 EST Edu Topics Physical Therapy Education Grid Balance Training : Needs further teaching Bed Mobility Training : Needs further teaching Gait Training : Needs further teaching Role of Physical Therapy : Verbalizes understanding Therapeutic Exercises : Needs further teaching Transfer Training : Needs further teaching AGUILA DANIELS, PT - 04/26/2019 13:19 EST Indication Assesessment, PT Physical Therapy Indicated : Yes PT Problem List : Impaired, bed mobility, Impaired, coordination/proprioception, Impaired, endurance tolerance, Impaired, gait, Impaired, sitting balance, Impaired, standing balance, Impaired, transfers Potential Barriers To Therapy : Pain Rehabilitation Potential : Fair AGUILA DANIELS, PT - 04/26/2019 13:19 EST Plan of Care, PT PT Tx Plan/Goals Established w Patient : Yes PT Frequency Rehab : Daily, twice (bid) PT Duration Rehab : Fourteen days PT Treatments Planned : Balance training, Bed mobility training, Gait training, Therapeutic exercises, Transfer training AGUILA DANIELS, PT - 04/26/2019 13:19 EST Short Term Goals Mobility/Bed Mobility STG PT Grid Goal #1 Goal #2 Activity : Supine to sit Sit to stand Assist : Assist, minimal Assist, moderate Equipment : Rail, bed Walker, front wheel Date to Meet : 05/03/2019 EST 05/03/2019 EST Goal Status : Initial goal Initial goal AGUILA DANIELS, PT - 04/26/2019 13:19 EST AGUILA DANIELS, PT - 04/26/2019 13:19 EST Ambulation STG Grid Goal #1 Device : Walker, front wheel Distance : 25' Assist : Assist, minimal Date to Meet : 05/03/2019 EST Goal Status : Intial Goal AGUILA DANIELS, PT - 04/26/2019 13:19 EST [facility] Goals Mobility/Bed Mobility LTG PT Grid Goal #1 Goal #2 Activity : Supine to sit Sit to stand Assist : Independent, modified Supervision or set-up Equipment : Rail, bed Walker, front wheel Date to Meet : 05/10/2019 EST 05/10/2019 EST Goal Status : Intial Goal Intial Goal JEREMIAH AGUILA, PT - 04/26/2019 13:19 EST AGUILA DANIELS, PT - 04/26/2019 13:19 EST Ambulation LTG Grid Goal #1 Device : Walker, front wheel Distance : 200' Assist : Supervision or set-up Date to Meet : 05/10/2019 EST Goal Status : Intial Goal JEREMIAHMARTINAEN, PT - 04/26/2019 13:19 EST Treatment Note Subjective Comment : Pt is willing to try to get to EOB but once there says her pain is too great to stay sitting. Kandy SOSA, is present and gives meds. wrote order that pt can be up ad barbara during PTx session, but otherwise is bedrest. Assessment : Good effort to move despite pain. Plan for Treatment : Cont PTx. While pt in ICU, can be daily but once moved, can begin BID. AGUILA DANIELS, PT - 04/26/2019 13:19 EST Pain Assessment Pain Scaled Used : 0-10 Pain scale Pain Score During-Intervention : 9 Location : Legs, bilateral Pain Comment : Kandy SOSA, present, giving meds via IV. AGUILA DANIELS, PT - 04/26/2019 13:19 EST Image 1 - Images currently included in the form version of this document have not been included in the text rendition version of the form. Anticipated Discharge Needs, OT/PT Anticipated Discharge to : Unit, rehabilitation AGUILA DANIELS, PT - 04/26/2019 13:19 EST [place] PT Charges PT Eval Low Complexity : 1 AGUILA DANIELS, PT - 04/26/2019 13:19 EST Electronically signed by Carito [facility] Conversion Equity Trader Curtis at 08/23/2022 11:19 AM CDT documented in this encounter Plan of Treatment Not on file documented as of this encounter Visit Diagnoses Not on filedocumented in this encounter
--- OUTSIDE RECORDS SUMMARY | 2024-02-20 09:21 | XMS_ITS | Encounter Summary ---
Author Organization [employer] Address [address] [place] [address] Care Team Providers Care Hand Cooper Helper Name Role Phone Unavailable Primary Care Provider Unavailabl e Encounter Details Date Type Department Care Team (Late st Contact Info) Description 04/26/2019 Transcribed Document [address] [phone] ProviderLuciano MD Social History Tobacco Use Types Packs/Day Years Used Date Smoking Tobacco: Never Assessed Comments Unknown Sex and Gender Information Value Date Recorded Sex Assigned at Not on file Legal Sex Female 6:01 PM CDT Gender Identity Not on file Sexual Orientation Not on file documented as of this encounter Miscellaneous Notes * Cerner Conversion Note - [facility] Aiyana ProviderMD - 04/26/2019 8:56 AM EST [facility] Authorization Entered On: 04/26/2019 7:57 EST Performed On: 04/26/2019 7:56 EST by BULMARO DUOGN RN-Utilization Review Primary Insurance Authorization Authorization and Policy Numbers : Insurance 1 Health Plan: [employer] MED[employer]ARE REPL Policy Number: [id number] Authorization Number: [id number] Insurance Primary Name : Mariela [id number] Authorization Status-Primary : Admit approved Authorization Number-Primary : [id number] Authorized Service Begin Date-Primary : 04/25/2019 EST Historical Authorization Comments-Primary : Comment 1: per [facility] inpt approved 1 day auth# [id number] (FRANCY MILIAN, Clerk Secretary 04/24/2019 13:26) BULMARO DUONG RN-Utilization Review - 04/26/2019 7:56 EST Electronically signed by Luciano Arzate Conversion Acoustical Tile Drill Press Operator Cerner at 08/23/2022 11:18 AM CDT documented in this encounter Plan of Treatment Not on file documented as of this encounter Visit Diagnoses Not on filedocumented in this encounter
--- OUTSIDE RECORDS SUMMARY | 2024-02-20 09:21 | XMS_ITS | Encounter Summary ---
Author Organization [employer] Address [address] [place] [address] Care Team Providers Care Band Lining Bander Name Role Phone Unavailable Primary Care Provider Unavailabl e Encounter Details Date Type Department Care Team (Late st Contact Info) Description 04/28/2019 Historic Encounter [address] [address] Provider, Luciano Bronson MD Social [...] Date/Time Associated Diagnosis Comments GLUCOSE-POC Routine 04/28/2019 3:18 PM EST documented in this encounter Results * (ABNORMAL) Glucose, Point of Care (04/28/2019 3:18 PM EST) Glucose POC2 163(H) 70 - 110 mg/dL 04/28/2019 8:18 PM EST [facility] General Manager Food [id number] 04/28/2019 8:18 PM EST [facility] Device SN [id number] 04/28/2019 8:18 PM EST [facility] Device Comment1 Notified Nurse RBV 04/28/2019 8:18 PM EST [facility] Blood 04/28/2019 3:18 PM EST 04/28/2019 8:20 PM EST [facility] Historical Provider POINT OF CARE TEST OR DERABLES Final Result [facility] [address] [phone] documented in this encounter Visit Diagnoses Not on filedocumented in this encounter
--- OUTSIDE RECORDS SUMMARY | 2024-02-20 09:21 | XMS_ITS | Encounter Summary ---
Author Organization [employer] Address [address] [place] [address] Care Team Providers Care Home Teaching Grades 7 And 8 Teacher Name Role Phone Unavailable Primary Care Provider Unavailabl e Encounter Details Date Type Department Care Team (Late st Contact Info) Description 04/26/2019 Transcribed Document [address] [address] Provider, Luciano Bronson MD Social [...] [facility] Aiyana ProviderMD - 04/26/2019 3:20 PM EST Treatment Intervention, OT Entered On: 05/02/2019 15:32 EST Performed On: 05/02/2019 14:11 EST by JAUN MCGRAW OTR/Ofelia General Information, OT Visit Type, OT : Treatment Note Patient Orders : Order Date Order Ordering 04/25/2019 17:44 Occupational Therapy Evaluation and Treatme Ordered By: MELIZA DOWNS MD-SNU 04/26/2019 14:20 Occupational Therapy Additional Tx Ordered By: Active Diagnoses : 04/29/2019 12: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 Therapy Diagnosis, OT : Decreased I/ADL status; functional mobility Admission Date : 04/25/2019 06:38 Co-treated by, OT : Physical Therapist Personal Devices : Personal Devices No Devices Recorded Assistive Devices : Assistive Devices No Devices Recorded Precautions in Place : Fall prevention measures, Spinal Precautions JAUN MCGRAW OTR/L - 05/02/2019 15:28 EST General Status Patient Received Status : Supine in bed Treatment Start Time : 05/02/2019 13:46 EST Patient Left Status : Supine in bed, RN/PCT informed, All needs met and within reach RN/PCT Informed Comment : IAN bragg Treatment End Time : 05/02/2019 14:11 EST Treatment Time : 25 Minute(s) JAUN MCGRAW OTR/Ofelia - 05/02/2019 15:28 EST Functional Mobility Mobility Grid Bed Roll Left : Supervision/set-up Bed Roll Right : Supervision/set-up Bed Scooting : Supervision/set-up Supine to Sit : Supervision/set-up Sit to Supine : Supervision/set-up JAUN MCGRAW OTR/Ofelia - 05/02/2019 15:28 EST Plan of Care, OT OT Tx Plan/Goals Established w Patient : Yes JAUN MCGRAW OTR/Ofelia - 05/02/2019 15:28 EST Physician General Practice Goals, OT Grooming LTG Grid Goal #1 Activity : Grooming Assist : Independent, modified Date to Meet : 05/10/2019 EST Goal Status : Goal met Date Met : 05/02/2019 EST Comment : sitting EOB JAUN MCGRAW OTR/Ofelia - 05/02/2019 15:28 EST Dressing, Lower Body LTG Grid Goal #1 Activity : Dressing, Lower Body Assist : Assist, moderate Date to Meet : 05/10/2019 EST Goal Status : Goal met Date Met : 05/02/2019 EST JAUN MCGRAW OTR/Ofelia - 05/02/2019 15:28 EST Toileting LTG Grid Goal #1 Activity : Toileting Assist : Assist, moderate Date to Meet : 05/10/2019 EST Goal Status : Initial goal JAUN MCGRAW OTR/Ofelia - 05/02/2019 15:28 EST Toilet Transfer LTG Grid Goal #1 Activity : Toilet Transfer, Ambulatory Assist : Assist, moderate Date to Meet : 05/10/2019 EST Goal Status : Goal met Date Met : 05/02/2019 EST JAUN MCGRAW OTR/Ofelia - 05/02/2019 15:28 EST Bed Mobility/ Bed Transfer LTG Grid Goal #1 Activity : Bed Mobility/Bed Transfer Assist : Assist, minimal Date to Meet : 05/10/2019 EST Goal Status : Goal met Date Met : 05/02/2019 EST JAUN MCGRAW OTR/Ofelia - 05/02/2019 15:28 EST Treatment Note Subjective Comment : Agreeable Patient's Response to Treatment : pt tolerated fairly Additional Objective Information : pt to EOB supervision with leg dental floss packer. Sat unsupported. Given AE for LB dressing educated and demonstrated understanding. Pt educated on bathroom transfers, shower transfers, car transfers, toileting hygiene. Given tongs for toileting. Dicussed use of home bidet. Pt supervision to supine with leg dental floss packer. Assessment : pt has good understanding of transfer safety and education given. to dc home Needs HH OT. Plan for Treatment : see poc JAUN MCGRAW OTR/Ofelia - 05/02/2019 15:28 EST Pain Assessment Pain Scaled Used : 0-10 Pain scale Pain Score During-Intervention : 0 JAUN MCGRAW OTR/L - 05/02/2019 15:28 EST Image 1 - Images currently included in the form version of this document have not been included in the text rendition version of the form. Anticipated Discharge Needs, OT/PT Anticipated Discharge to : Home, with home health Recommend Continued Therapy at Discharge : Yes JAUN MCGRAW OTR/Ofelia - 05/02/2019 15:[address] [facility] OT Charges OT Selfcare/Hm Mgmt Ea 15 Min : 2 JAUN MCGRAW OTR/L - 05/02/2019 15:28 EST documented in this encounter Plan of Treatment Not on file documented as of this encounter Visit Diagnoses Not on filedocumented in this encounter
--- OUTSIDE RECORDS SUMMARY | 2024-02-20 09:21 | XMS_ITS | Encounter Summary ---
Author Organization [employer] Address [address] [place] [address] Care Team Providers Care Multiple Drum Sander Helper Name Role Phone Unavailable Primary Care Provider Unavailabl e Encounter Details Date Type Department Care Team (Late st Contact Info) Description 04/28/2019 Historic Encounter [address] [address] Provider, Luciano Bronson MD Social [...] Date/Time Associated Diagnosis Comments GLUCOSE-POC Routine 04/28/2019 5:37 AM EST documented in this encounter Results * (ABNORMAL) Glucose, Point of Care (04/28/2019 5:37 AM EST) Glucose POC2 187(H) 70 - 110 mg/dL 04/28/2019 10:37 AM EST [facility] Director Of Plant Operations [id number] 04/28/2019 10:37 AM EST [facility] Device SN [id number] 04/28/2019 10:37 AM EST [facility] Device Comment1 Notified Nurse RBV 04/28/2019 10:37 AM EST [facility] Blood 04/28/2019 5:37 AM EST 04/28/2019 10:41 AM EST [facility] Historical Provider POINT OF CARE TEST OR DERABLES Final Result [facility] [address] [phone] documented in this encounter Visit Diagnoses Not on filedocumented in this encounter
--- OUTSIDE RECORDS SUMMARY | 2024-02-20 09:21 | XMS_ITS | Encounter Summary ---
Author Organization [employer] Address [address] [place] [address] Care Team Providers Care Supervisor Lead Refinery Name Role Phone Unavailable Primary Care Provider Unavailabl e Encounter Details Date Type Department Care Team (Late st Contact Info) Description 04/25/2019 Transcribed Document [address] [address] Provider, [facility] MD Aiyana Social History Tobacco Use Types Packs/Day Years Used Date Smoking Tobacco: Never Assessed Comments Unknown Sex and Gender Information Value Date Recorded Sex Assigned at Not on file Legal Sex Female 6:01 PM CDT Gender Identity Not on file Sexual Orientation Not on file documented as of this encounter Miscellaneous Notes * Cerner Conversion Note - [facility] Historical Provider, - 04/25/2019 1:05 PM EST [facility] Main OR IntraOp Summary Primary Physician: MELIZA DOWNS MD-SNU Finalized Date/Time: 04/27/19 12:47:33 Pt. Name: GERTRUDIS DALY Ofelia /Sex: 1955 Female Med Rec #: [id number] Physician: MELIZA DOWNS MD-NIYA Financial #: [id number] Pt. Type: I Room/Bed: [facility]/ Admit/Disch: 04/25/19 06:38:00 - Institution: [facility] IntraOp Case Attendance Entry 1 Entry 2 Entry 3 Case Attendee MELIZA DOWNS MD-SNU Burdine, Teresa A, RN BRADY, CHRISTINA M RN Role Performed Surgeon/Proceduralist, Shuttle Inspector, First Shuttle Inspector, First First Time In 04/25/19 11:21:00 04/25/19 11:21:00 04/25/19 11:21:00 Time Out 04/25/19 17:43:00 04/25/19 17:43:00 04/25/19 12:15:00 Procedure Lumbar Laminectomy Lumbar Laminectomy Lumbar Laminectomy Other Attendee lunch relief Superficial Wound Closed By: Last Modified By: Lida Mitchell, Lida Ho, Lida Ho, IAN 04/25/19 17:44:12 04/25/19 17:44:12 04/25/19 17:44:12 Entry 4 Entry 5 Entry 6 Case Attendee JACKSON PATTERSON, [facility] Oscar MONAHAN Mark, DAHLIA BURRIS-JEB Role Performed Scrub, First Physician speech language assistant TRACK SERVICE WORKER/Nurse Parachute/Combatant Diver Officer Time In 04/25/19 11:21:00 04/25/19 11:21:00 04/25/19 11:21:00 Time Out 04/25/19 17:43:00 04/25/19 17:43:00 04/25/19 17:43:00 Procedure Lumbar Laminectomy Lumbar Laminectomy Lumbar Laminectomy Other Attendee Superficial Wound Closed By: Last Modified By: Lida Mitchell RN Burdine, Teresa A, RN Burdine, Teresa A, RN 04/25/19 17:44:12 04/25/19 17:44:12 04/25/19 17:44:12 Entry 7 Entry 8 Entry 9 Case Attendee COURTNEY TSAI MD-Courtney Arenas, OTHER, ATTENDEE #1 Diagnostic Private Branch Exchange Operator Role Performed Anesthesiologist of Retail Services Professional Other Record Time In 04/25/19 11:21:00 04/25/19 11:21:00 04/25/19 11:21:00 Time Out 04/25/19 17:43:00 04/25/19 17:43:00 04/25/19 17:43:00 Procedure Lumbar Laminectomy Lumbar Laminectomy Lumbar Laminectomy Other Attendee neuro monitor joao mustafa Superficial Wound Closed By: Last Modified By: Lida Mitchell RN Burdine, Teresa A, Lida Ho RN 04/25/19 17:44:12 04/25/19 17:44:12 04/25/19 17:44:12 Entry 10 Entry 11 Case Attendee Kermit Zavala Radiologic WASSON, SANDRA D RN Technologist Role Performed Retail Services Professional Scrub, Second Time In 04/25/19 13:10:00 04/25/19 13:00:00 Time Out 04/25/19 14:38:00 04/25/19 14:15:00 Procedure Lumbar Laminectomy Lumbar Laminectomy Other Attendee LUNCH RELIEF Superficial Wound Closed By: Last Modified By: Lida Mitchell RN Burdine, Teresa A, RN 04/25/19 17:44:12 04/25/19 17:44:12 [facility] IntraOp Case Attendance Audit 04/25/19 17:44:12 Preschool Associate Teacher: [id number] Modifier: [id number] <+> Time Out 1 <*> Procedure Lumbar Laminectomy 2 <+> Time Out 2 <*> Procedure Lumbar Laminectomy 3 <*> Procedure Lumbar Laminectomy 4 <+> Time Out 4 <*> Procedure Lumbar Laminectomy 5 <+> Time Out 5 <*> Procedure Lumbar Laminectomy 6 <+> Time Out 6 <*> Procedure Lumbar Laminectomy 7 <+> Time Out 7 <*> Procedure Lumbar Laminectomy 8 <+> Time Out 8 <*> Procedure Lumbar Laminectomy 9 <+> Time Out 9 <*> Procedure Lumbar Laminectomy 10 <*> Procedure Lumbar Laminectomy 11 <*> Procedure Lumbar Laminectomy 04/25/19 16:08:03 Preschool Associate Teacher: [id number] Modifier: [id number] <+> Time Out 3 <*> Procedure Lumbar Laminectomy 04/25/19 14:51:38 Preschool Associate Teacher: [id number] Modifier: [id number] <+> Time Out 10 <*> Procedure Lumbar Laminectomy 04/25/19 14:16:00 Preschool Associate Teacher: [id number] Modifier: [id number] <+> Time Out 11 <*> Procedure Lumbar Laminectomy 04/25/19 13:35:44 Preschool Associate Teacher: [id number] Modifier: [id number] <+> 10 Case Attendee <+> 10 Role Performed <+> 10 Time In <+> 10 Procedure <+> 10 Other Attendee <+> 11 Case Attendee <+> 11 Role Performed <+> 11 Time In <+> 11 Procedure 04/25/19 12:44:43 Preschool Associate Teacher: [id number] Modifier: [id number] <+> 1 Procedure 2 <*> Procedure Lumbar Laminectomy 3 <*> Procedure Lumbar Laminectomy 4 <*> Procedure Lumbar Laminectomy 5 <*> Procedure Lumbar Laminectomy 6 <*> Procedure Lumbar Laminectomy 7 <*> Procedure Lumbar Laminectomy 8 <*> Procedure Lumbar Laminectomy 9 <*> Procedure Lumbar Laminectomy 04/25/19 12:43:20 Preschool Associate Teacher: [id number] Modifier: [id number] <*> Procedure Lumbar Laminectomy 3 <*> Procedure Lumbar Laminectomy 4 <*> Procedure Lumbar Laminectomy 5 <*> Procedure Lumbar Laminectomy 6 <*> Procedure Lumbar Laminectomy 7 <*> Procedure Lumbar Laminectomy 8 <*> Procedure Lumbar Laminectomy 9 <+> Time In 9 <*> Procedure Lumbar Laminectomy 04/25/19 12:25:13 Preschool Associate Teacher: [id number] Modifier: [id number] <*> Procedure Lumbar Laminectomy 3 <*> Procedure Lumbar Laminectomy 4 <*> Procedure Lumbar Laminectomy 5 <*> Procedure Lumbar Laminectomy 6 <*> Procedure Lumbar Laminectomy 7 <*> Procedure Lumbar Laminectomy 8 <+> Time In 8 <*> Procedure Lumbar Laminectomy <+> 9 Case Attendee <+> 9 Role Performed <+> 9 Procedure <+> 9 Other Attendee 04/25/19 12:23:07 Preschool Associate Teacher: [id number] Modifier: [id number] <+> 1 Time In 2 <+> Time In 2 <*> Procedure Lumbar Laminectomy 3 <+> Time In 3 <*> Procedure Lumbar Laminectomy 4 <+> Time In 4 <*> Procedure Lumbar Laminectomy 5 <+> Time In 5 <*> Procedure Lumbar Laminectomy 6 <+> Case Attendee 6 <+> Time In 6 <*> Procedure Lumbar Laminectomy 7 <+> Time In 7 <*> Procedure Lumbar Laminectomy <+> 8 Case Attendee <+> 8 Role Performed <+> 8 Procedure [facility] IntraOp Case Times Entry 1 Patient In Room Time 04/25/19 11:21:00 Out Room Time 04/25/19 17:43:00 Anesthesia Start Time 04/25/19 11:21:00 Stop Time 04/25/19 17:43:00 Surgery / Procedure Times Start Time 04/25/19 12:05:00 Stop Time 04/25/19 17:29:00 Last Modified By: Lida Mitchell RN 04/25/19 17:43:33 [facility] IntraOp Case Times Audit 04/25/19 17:43:33 Preschool Associate Teacher: [id number] Modifier: [id number] <+> 1 Out Room Time <+> 1 Stop Time <+> 1 Stop Time [facility] IntraOp Cautery Entry 1 Entry 2 ESU Identification Cautery Type Monopolar ESU BiPolar ESU Cautery Type Comments ID Number [id number] ID Type Hospital Number Hospital Number Cautery Settings Cut Setting 45 8 Coag Setting 45 45 Blend Setting Bipolar Setting Argon Setting Argon Clayton ESU Grounding Pad Ground Pad Type Adult Grounding Pad Type Comment Grounding Pad Site Right Buttock Grounding Pad Site Comment Grounding Pad Lida Mitchell RN Applied By Grounding Pad Site Warm, dry and intact Skin Condition Before Cautery Site Skin Condition Before Comment Grounding Pad Site Unchanged Skin Condition After Cautery Site Skin Condition After Comment Last Modified By: Lida Mitchell RN Burdine, Teresa A, RN 04/25/19 12:24:11 04/25/19 12:25:58 [facility] IntraOp Cautery Audit 04/25/19 12:25:58 Preschool Associate Teacher: [id number] Modifier: [id number] <+> 2 Cautery Type <+> 2 Coag Setting <+> 2 Cut Setting <+> 2 ID Number <+> 2 ID Type [facility] IntraOp Communication Entry 1 Entry 2 Entry 3 Communication To Family/Significant other Family/Significant other Family/Significant other Comment start UPDATE UPDATE Communication By ARYAN TIRADO RN WASSON, SANDRA D, RN BRADY, CHRISTINA M, RN Date and Time 04/25/19 12:05:00 04/25/19 13:43:00 04/25/19 15:15:00 Last Modified By: Lida Mitchell RN Burdine, Teresa A, RN Burdine, Teresa A, RN 04/25/19 12:05:52 04/25/19 13:43:33 04/25/19 16:33:59 Entry 4 Communication To Family/Significant other Comment UPDATE Communication By Lida Mitchell RN Date and Time 04/25/19 16:32:00 Last Modified By: Lida Mitchell RN 04/25/19 16:58:34 [facility] IntraOp Communication Audit 04/25/19 16:58:34 Preschool Associate Teacher: [id number] Modifier: [id number] <*> Comment CLOSING 04/25/19 16:33:59 Preschool Associate Teacher: [id number] Modifier: [id number] <+> 3 Communication By <+> 3 Date and Time <+> 3 Communication To <+> 3 Comment <+> 4 Communication By <+> 4 Date and Time <+> 4 Communication To <+> 4 Comment 04/25/19 13:43:33 Preschool Associate Teacher: [id number] Modifier: [id number] <+> 2 Communication By <+> 2 Date and Time <+> 2 Communication To <+> 2 Comment [facility] IntraOp Counts Verification Entry 1 Procedure Lumbar Laminectomy Count Info Count Type Sponge, Sharps, Miscellaneous Counts Verification Baseline/pre-procedure Sequence Counts Performed By Count Performed By JACKSON PATTERSON ST (Scrub) Count Performed By Lida Mitchell RN (RN) Last Modified By: Lida Mitchell RN 04/25/19 12:07:52 [facility] IntraOp Counts Final Entry 1 Procedure Lumbar Laminectomy Final Count Info Count Type Sponge, Sharps, Miscellaneous Counts Verification Skin Closure/end of Sequence procedure Count Results Correct, surgeon notified Counts Performed By Count Performed By JACKSON PATTERSON ST (Scrub) Count Performed By Lida Mitchell RN (RN) Last Modified By: Lida Mitchell RN 04/25/19 17:43:58 [facility] IntraOp Counts Final Audit 04/25/19 17:43:58 Preschool Associate Teacher: [id number] Modifier: [id number] Entry 1 was deleted. Higher numbered entries shifted one position to fill the gap. <-> 1 Procedure Lumbar Laminectomy <-> 1 Count Type Sponge, Sharps, Miscellaneous <-> 1 Count Results Correct, surgeon notified <-> 1 Count Performed By (Scrub) JACKSON PATTERSON ST <-> 1 Count Performed By (RN) Lida Mitchell RN <-> 1 Counts Verification Sequence 04/25/19 17:43:46 Preschool Associate Teacher: [id number] Modifier: [id number] <+> 2 Procedure <+> 2 Count Type <+> 2 Count Results <+> 2 Count Performed By (Scrub) <+> 2 Count Performed By (RN) <+> 2 Counts Verification Sequence [facility] IntraOp Cultures and Spec Summary Entry 1 Cultrures and Specimens Specimen Ordered: Yes Test(s) Frozen Requested/Final Section(s)/Path-Lab Disposition Last Modified By: Lida Mitchell RN 04/25/19 17:43:50 General Comments: A. NEOPLASM OF SPINE B. SONAPET CONTENTS C. CAUDA EQUINA TUMOR [facility] IntraOp Cultures and Spec Summary Audit 04/25/19 17:43:50 Preschool Associate Teacher: [id number] Modifier: [id number] <*> Specimen Ordered: [facility] IntraOp Departure from OR Entry 1 Integumentary Assessment Integumentary WDL Assessment WDL Transfer/Handoff Transfer to PACU Phase I Handoff Method Phone call Post-op Transport Stretcher/Gurney Via Patient Transport AISHA MONAHAN, Accompanied by ASHER JENKINS, Vu Moore CRNA Last Modified By: Lida Mitchell RN 04/25/19 12:26:34 [facility] IntraOp Dressing and Packing Entry 1 Type Dressing Location OPSITE Wound Dressing Item Occlusive dressing Applied By ALICE MAR PA-INT Last Modified By: Lida Mitchell RN 04/25/19 12:27:03 [facility] IntraOp Fire Risk Assessment Entry 1 Fire Info Surgical Site or 0- No Incision Above the Xyphoid Open O2 Source 0- No (Mask or Cannula) Available Ignition 1- Yes (ESU, Laser, Light Source) Fire Risk 1 Assessment Score Fire Score Fire Risk Yes Assessment Complete Fire Risk Lida Mitchell RN Assessment Verified By Fire Risk 04/25/19 11:21:00 Assessment Verified Date/Time Fire Risk Standard Fire Yes Safety Precautions Followed Last Modified By: Lida Mitchell RN 04/25/19 12:27:34 [facility] IntraOp General Case Lag Screwer 1 Case Information OR OR 09 [facility] Case Level 1 Room Verified Yes Wound Class I - Clean Specialty SN Neurosurgery ASA Class 3 Diagnosis 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 Postop Same As Preop No Postop Diagnosis SEE MD POST OP NOTE Last Modified By: Lida Mitchell RN 04/25/19 12:33:13 [facility] IntraOp Implant Log Entry 1 Type Implant (Synthetic) Implant Log Implant Type Mesh Implant GRAFT MATRIX DURA Identification [id number] Description Implant Quantity 1 Implant Site OPSITE Implant [id number] Identification Lot Number Implant [employer] Surgical Identification Navigation Retail Sales Associate Seasonal Name: Implant [id number] Identification Catalog Number Implant Has an Yes Expiration Date Implant Expiration 05/30/21 Date Tissue Implant Last Modified By: Liad Mitchell RN 04/25/19 16:47:01 [facility] IntraOp Intraoperative Assessment Entry 1 Handoff Reported to ARYAN TIRADO RN Handoff Method Bedside/Face to face Valid History / Yes Physical in Chart Preoperative Yes Checklist Reviewed/Evaluated Allergies Reviewed Yes Patient is Latex Yes, protocol initiated Sensitive Isolation Not applicable Precautions Noted Level of WDL Consciousness (WDL = Alert, Oriented to Person, Place, and Time) Skin Assessment No Verified Present Upon IVs, Arterial line Arrival to OR Last Modified By: Lida Mitchell RN 04/25/19 12:34:19 [facility] IntraOp Intraoperative Assessment Audit 04/25/19 12:34:19 Preschool Associate Teacher: [id number] Modifier: [id number] <*> Present Upon Arrival to OR IVs [facility] IntraOp Intraoperative Equipment Entry 1 Type Equipment Equipment Equipment Ambreen Suction System Setting 200MMHG Intraop Monitoring Electrocardiogram Five lead placement (ECG) Electrode Placement Blood Pressure Arterial Pressure Line Source Pulse Oximeter Hand, left Probe Site Antiembolic Devices Antiembolic Devices Sequential compression device, knee high Antiembolic Device Bilateral Location Scopes Photo/Video Documentation Photo No Video No Last Modified By: Lida Mitchell RN 04/25/19 12:39:08 [facility] IntraOp Medication Admin Entry 1 Entry 2 Entry 3 Medication/Irrigant neomycin/bacitracin/poly thrombin 5,000 unit pwd FLSEAL VHSD FULL mixin 15 gm oint STRLPREP [id number] Combo Med List Time Administered Route of TOPICAL TOPICAL TOPICAL Administration Dose Dose 1 5000 10 Unit of Measure pkt units ml Volume Administered By YARELI MAR ROBERT D, MD-MELIZA MAYFIELD MD-DAHLIA SLAUGHTER-INT Procedure Irrigation Irrigant Volume In Irrigant Volume Out Last Modified By: Lida Mitchell RN Burdine, Teresa A, RN Burdine, Teresa A, RN 04/25/19 12:40:31 04/25/19 12:40:31 04/25/19 13:01:17 Entry 4 Entry 5 Medication/Irrigant SEALANT DURASL SPINE FLSEAL VHSD FULL 5ML-309792 STRLPREP 10ML-176998 Combo Med List Time Administered Route of TOPICAL TOPICAL Administration Dose Dose 5 10 Unit of Measure ml ml Volume Administered By MELIZA DOWNS MD-SNU OWEN, ROBERT D, MD-SNU Procedure Irrigation Irrigant Volume In Irrigant Volume Out Last Modified By: Lida Mitchell RN Burdine, Teresa A, RN 04/25/19 13:47:01 04/25/19 16:58:55 [facility] IntraOp Medication Admin Audit 04/25/19 16:58:55 Preschool Associate Teacher: [id number] Modifier: [id number] <+> 5 Medication/Irrigant <+> 5 Route of Administration <+> 5 Administered By <+> 5 Dose <+> 5 Unit of Measure 04/25/19 13:47:01 Preschool Associate Teacher: [id number] Modifier: [id number] <+> 4 Medication/Irrigant <+> 4 Route of Administration <+> 4 Administered By <+> 4 Dose <+> 4 Unit of Measure 04/25/19 13:01:17 Preschool Associate Teacher: [id number] Modifier: [id number] <+> 3 Medication/Irrigant <+> 3 Route of Administration <+> 3 Administered By <+> 3 Dose <+> 3 Unit of Measure [facility] IntraOp Patient Positioning Entry 1 Procedure Lumbar Laminectomy Body Position Prone Left Arm Position Secured on padded arm board Right Arm Position Secured on padded arm board Left Leg Position Uncrossed, parallel Right Leg Position Uncrossed, parallel Feet Uncrossed Yes Pressure Points Yes Checked Positioning Devices Head Rest, Omid Table, Over Arm Rest, Pillows, Safety Strap, Thighs, Roll(s), Chest, Roll, Hip Positioned By MELIZA DOWNS MD-SNU, Lida Mitchell RN, ARYAN TIRADO RN, ALICE MAR PA-INT, Vu Moore, MARY Position Verified Positioning Yes Verified by Anesthesia Positioning Yes Verified by Surgeon Last Modified By: Lida Mitchell RN 04/25/19 12:43:00 [facility] IntraOp Sign In Entry 1 Patient, Site, Yes Procedure Identified Surgical Consent Yes Confirmed Relevant Surgical Yes Documents Available Surgical Site Yes Marked by person performing procedure Anesthesia Machine Yes Check Completed Medication Checks Yes Completed Allergies Yes Airway Difficult Yes Airway/Aspiration Risk Difficult Yes Airway/Aspiration Intervention Equipment Available Blood Loss Risk Yes Blood Loss Yes Intervention Equipment Prepared and Ready Blood Identifiers Yes Verified Per Policy Hypothermia Risk Yes Warming Measures Yes Taken Last Modified By: Lida Mitchell RN 04/25/19 12:43:17 [facility] IntraOp Sign Out Entry 1 RN Confirmation Surgical Yes Procedure(s) Identified Instrument, Sponge Yes and Sharps Counts Correct/Documented Equipment Problems N/A Documented Specimen Labeled Yes Correctly Urinary Catheter Yes Documented in IView Stover Patient Yes Recovery Concerns Reviewed with Anesthesia Provider, Surgeon and RN Stover Patient Yes Management Concerns Reviewed with Anesthesia Provider, Surgeon and RN Safety Checklist Yes Elements Complete? RN Sign Out Lida Mitchell RN Signature RN Sign Out 04/25/19 17:44:00 Signature Date/Time Plan of Care Outcome - Fire Risk OUTCOME STATEMENT: Goal met Patient is free from injury related to surgical fire Plan of Care Outcome - Pt Positioning OUTCOME STATEMENT: Goal met Absence of signs and symptoms of positioning injury. Plan of Care Outcome - Skin Prep OUTCOME STATEMENT: Goal met Intraoperative care is consistent with measures to prevent infection Plan of Care Outcome - Xray/Images OUTCOME STATEMENT: Goal met Absence of observable signs or symptoms of radiation injury Plan of Care Outcome - Counts OUTCOME STATEMENT: Goal met Absence of signs and symptoms of injury related to extraneous objects Last Modified By: Lida Mitchell RN 04/25/19 17:44:08 [facility] IntraOp Sign Out Audit 04/25/19 17:44:08 Preschool Associate Teacher: [id number] Modifier: [id number] <+> 1 RN Sign Out Signature Date/Time [facility] IntraOp Skin Prep Entry 1 Procedure Lumbar Laminectomy Prescribed Yes Pre-Surgical Prep Completed Prep Area OPSITE Intraop Prep Integumentary WDL Assessment WDL Prep Agents Chloraprep Prep by Lida Mitchell RN Hair Removal Methods No hair removal performed Last Modified By: Lida Mitchell RN 04/25/19 12:44:40 [facility] IntraOp Surgical Procedures Entry 1 Procedure Lumbar Laminectomy Additional (LUMBAR LAMINECTOMY Procedure WITH RESECTION Description /DEBULKING OF INTRA DURAL CAUDE EQUINA TUMOR) Primary Procedure Yes Primary Surgeon MELIZA DOWNS MD-SNU Start 04/25/19 12:05:00 Stop 04/25/19 17:29:00 Anesthesia Type General Specialty SN Neurosurgery Wound Class I - Clean Last Modified By: Lida Mitchell RN 04/25/19 17:44:10 [facility] IntraOp Surgical Procedures Audit 04/25/19 17:44:10 Preschool Associate Teacher: [id number] Modifier: [id number] <+> 1 Stop [facility] IntraOp Temp Regulation Devices Entry 1 Temp Regulation Temperature Forced Air Warming Regulation Device device, Warm blankets Temperature Upper body Regulation Site Temperature Device 43 Setting Temperature Oscar, Vu, TRACK SERVICE WORKER Regulation Device Applied by Temperature PATIENT'S TEMPERATURE Regulation Comment MONITORED BY ANESTHESIA Last Modified By: Lida Mitchell RN 04/25/19 12:45:34 [facility] IntraOP Time Out Entry 1 Procedure to be Lumbar Laminectomy Performed Time Out Time Out Pause Time 04/25/19 12:03:00 All activity Yes suspended (unless life threatening emergency) Team Verbally Correct patient Confirms Information identity, Correct side and site are marked, Consent form is present and accurate, Agreement on the procedure to be done, Correct patient position, Relevant images/results properly labeled/appropriately displayed, Confirm antibiotics have been administered, Confirm the skin prep has dried, Confirm prosthesis/implant/devic e is present, Performed in location of procedure after prepped/draped Antibiotic Yes Prophylaxis Administered Or In Progress Within the Last 60 Minutes Beta Michael Yes Administered Venous Yes Thromboembolism Prophylaxis Required Anticipated Critical Events Surgeon None expected, Critical or unexpected steps Anesthesia Provider Patient specific concerns, None expected Nursing Assures Sterility of instruments, Equipment concerns or issues Essential Imaging Yes Labeled and Displayed Last Modified By: Lida Mitchell RN 04/25/19 12:05:42 [facility] IntraOp X-Ray and Images Entry 1 X-Ray/Imaging Type Fluoroscopy Fluoroscopy Type C-Arm Site OPSITE Flower Grader Name Ev Toro RN-Educator I Protective Devices Yes Used Last Modified By: Lida Mitchell RN 04/25/19 12:52:48 Case Comments <None> Finalized By: PRIYANKA CLAYTON Document Signatures Signed By: Lida Mitchell RN 04/25/19 17:44 PRIYANKA CLAYTON 04/27/19 12:47 Unfinalized History Date/Time Username Reason for Unfinalizing Freetext Reason for Unfinalizing 04/27/19 12:36 [id number] Correct Billing documented in this encounter Plan of Treatment Not on file documented as of this encounter Visit Diagnoses Not on filedocumented in this encounter
--- OUTSIDE RECORDS SUMMARY | 2024-02-20 09:21 | XMS_ITS | Encounter Summary ---
Author Organization [employer] Address [address] [place] [address] Care Team Providers Care Farmer Cash Grain Name Role Phone Unavailable Primary Care Provider Unavailabl e Encounter Details Date Type Department Care Team (Late st Contact Info) Description 04/28/2019 Historic Encounter [address] [address] Provider, Luciano Bronson MD Social [...] Associated Diagnosis Comments CBC W/ AUTO DIFF ([facility] BK DATA CONV) Routine 04/28/2019 3:07 AM EST documented in this encounter Results * (ABNORMAL) CBC W/ AUTO DIFF ([facility] BKR DATA CONV) (04/28/2019 3:07 AM EST) WBC 9.8 4.5 - 10.5 K/uL 04/28/2019 8:42 AM EST RBC 4.22 3.93 - 5.22 Million/uL 04/28/2019 8:42 AM EST Hgb 12.3 11.2 - 15.7 g/dL 04/28/2019 8:42 AM EST Hct 38.7 34.1 - 44.9 % 04/28/2019 8:42 AM EST MCV 91.7 79.0 - 94.8 fL 04/28/2019 8:42 AM EST MCH 29.1 25.6 - 32.2 pg 04/28/2019 8:42 AM EST MCHC 31.8(L) 32.2 - 36.5 Gram/dL 04/28/2019 8:42 AM EST RDW 13.0 11.7 - 14.9 % 04/28/2019 8:42 AM EST Platelet Count 214 163 - 369 K/uL 04/28/2019 8:42 AM EST MPV 11.3 9.4 - 12.4 fL 04/28/2019 8:42 AM EST Slide Review No 04/28/2019 8:44 AM EST Blood 04/28/2019 3:07 AM EST 04/28/2019 8:38 AM EST [facility] Historical Provider LAB BLOOD ORDERABLES Final Result [facility] [address] [phone] documented in this encounter Visit Diagnoses Not on filedocumented in this encounter
--- OUTSIDE RECORDS SUMMARY | 2024-02-20 09:21 | XMS_ITS | Encounter Summary ---
Author Organization [employer] Address [address] [place] [address] Care Team Providers Care Electrical Electronics Technician Name Role Phone Unavailable Primary Care Provider Unavailabl e Encounter Details Date Type Department Care Team (Late st Contact Info) Description 04/28/2019 Transcribed Document [address] [address] Provider, Luciano Bronson MD Social [...] [facility] Aiyana ProviderMD - 04/28/2019 9:31 AM EST Patient: GERTRUDIS DALY Age: 63 years Sex: Female : 1955 Associated Diagnoses: None Author: MARY JO BRIONES APRN-FAM S: lethargic this am a lot of pain last night + low grade fevers No shortness of breath, + cough No Chest pain, palpitations, syncope + nausea, -vomiting, +poor appetite, -flatus, -BM +urinary retention, I&O cath several times + post-op pain Did walk 20 ft with PT yesterday Chief Complaint: Dr Ortiz requested medical management [...] Last Charted Minimum Maximum Temp 99.1 (APR 28 04:00) 98.5 (APR 27 17:43) 99.1 (APR 27 12:00) Mon HR 89 (APR 28 04:00) 72 (APR 27 11:00) 91 (APR 27 15:00) Resp Rate 16 (APR 28 04:00) 16 (APR 28 04:00) H 32 (APR 27 09:00) SBP 116 (APR 28 04:00) L 86 (APR 27 11:00) 122 (APR 27 17:43) DBP L 56 (APR 28 04:00) L 48 (APR 27 11:00) L 58 (APR 27 15:00) MAP 76 (APR 28 04:00) 61 (APR 27 11:00) 84 (APR 27 17:43) SpO2 96 (APR 27 17:43) L 93 (APR 27 12:00) 96 (APR 27 09:00) PE: obese white female, somnolent, lethargic, laying in bed, at bedside pink conjunctiva, dry mucous membranes, no thyromegaly or cervical lymphadenopathy =expansion b/l , no wheezing or rhonchi non-displaced PMI, S1S2 ABD is obese, soft non-tender, non-distended, hypoactive bowel sounds skin warm, dry without rashes ext: no low ext edema, no calf tenderness neuro: somnolent psych: flat affect and mood Labs Most Recent Last 28 days [...] resection of cauda equina tumor. post-op urinary retention neurogenic bladder Diabetes Mellitus II HTN Hypoxia 2* to atelectasis PLAN suspect she will need rehab need to limit narcs- rec DC all IV narcs- spoke with Cristino VILLAGOMEZ and Dr. Ortiz encouraged PO fluids and ambulation anchor goodman- pt with neurogenic bladder per neurosx they recommend keeping goodman 1 week UA with cx start bethanechol Monitor HTN; add PRN's, hold parameters bowel regimen-refusing miralax, start metamucil and oral dulcolax today incentive spirometer PT/OT DVT prophylaxis noted Pain [...] made in conjunction with Hanna Murphy MD Electronically signed by [facility], [facility] Conversion Network Specialist Cerner at 08/23/2022 11:19 AM CDT documented in this encounter Plan of Treatment Not on file documented as of this encounter Visit Diagnoses Not on filedocumented in this encounter
--- OUTSIDE RECORDS SUMMARY | 2024-02-20 09:21 | XMS_ITS | Encounter Summary ---
Author Organization [employer] Address [address] [place] [address] Care Team Providers Care Heel Coverer Name Role Phone Unavailable Primary Care Provider Unavailabl e Encounter Details Date Type Department Care Team (Late st Contact Info) Description 04/25/2019 Historic Encounter [address] [address] Provider, Luciano Bronson MD Social [...] Date/Time Associated Diagnosis Comments GLUCOSE-POC Routine 04/25/2019 8:33 AM EST documented in this encounter Results * (ABNORMAL) Glucose, Point of Care (04/25/2019 8:33 AM EST) Glucose POC2 179(H) 70 - 110 mg/dL 04/25/2019 1:33 PM EST [facility] Prompt Care Rn [id number] 04/25/2019 1:33 PM EST [facility] Device SN [id number] 04/25/2019 1:33 PM EST [facility] Device Comment1 Notified RBErasmo 04/25/2019 1:33 PM EST [facility] Blood 04/25/2019 8:33 AM EST 04/25/2019 1:40 PM EST [facility] Historical Provider POINT OF CARE TEST OR DERABLES Final Result [facility] [address] [phone] documented in this encounter Visit Diagnoses Not on filedocumented in this encounter
--- OUTSIDE RECORDS SUMMARY | 2024-02-20 09:21 | XMS_ITS | Encounter Summary ---
Author Organization [employer] Address [address] [place] [address] Care Team Providers Care Midwife And Birth Center Owner Name Role Phone Unavailable Primary Care Provider Unavailabl e Encounter Details Date Type Department Care Team (Late st Contact Info) Description 04/25/2019 Historic Encounter [address] [address] Provider, Luciano Bronson MD Social [...] Procedure Name Priority Date/Time Associated Diagnosis Comments ABO/RH - ABORHECHO (AIMEE BKR) Routine 04/25/2019 8:35 AM EST documented in this encounter Results * ABO/Rh (04/25/2019 8:35 AM EST) Hx Check NO HX 04/25/2019 2:20 PM EST Method SP 04/25/2019 2:20 PM EST Anti-A 0 04/25/2019 2:20 PM EST Anti-B 0 04/25/2019 2:20 PM EST Anti-D1 3+ 04/25/2019 2:20 PM EST Anti-D2 3+ 04/25/2019 2:20 PM EST Con 0 04/25/2019 2:20 PM EST A1 4+ 04/25/2019 2:20 PM EST B 4+ 04/25/2019 2:20 PM EST ABO/Rh (ECHO) O POS 04/25/2019 2:20 PM EST Blood 04/25/2019 8:35 AM EST 04/25/2019 1:47 PM EST [facility] Historical Provider MD JORDAN BLOOD BANK TEST O RDERABLES Final Result Performing Organization Address City/State/[facility] Co de Phone Number [facility] [address] [place] [address] documented in this encounter Visit Diagnoses Not on filedocumented in this encounter
--- OUTSIDE RECORDS SUMMARY | 2024-02-20 09:21 | XMS_ITS | Encounter Summary ---
Author Organization [employer] Address [address] [place] [address] Care Team Providers Care Housing Assistant Property Manager Name Role Phone Unavailable Primary Care Provider Unavailabl e Encounter Details Date Type Department Care Team (Late st Contact Info) Description 04/26/2019 Transcribed Document [address] [address] Provider, Luciano Bronson MD Social History Tobacco Use Types Packs/Day Years Used Date Smoking Tobacco: Never Assessed Comments Unknown Sex and Gender Information Value Date Recorded Sex Assigned at Not on file Legal Sex Female 6:01 PM CDT Gender Identity Not on file Sexual Orientation Not on file documented as of this encounter Miscellaneous Notes * Cerner Conversion Note - [facility] Aiyana ProviderMD - 04/26/2019 2:11 PM EST UM Authorization Entered On: 04/26/2019 13:11 EST Performed On: 04/26/2019 13:11 EST by BULMARO DUONG RN-Utilization Review Primary Insurance Authorization Authorization and Policy Numbers : Insurance 1 Health Plan: [employer] MED[employer]ARE REPL Policy Number: [id number] Authorization Number: [id number] Insurance Primary Name : Mariela [id number] Authorization Status-Primary : Awaiting callback Authorization Number-Primary : [id number] Authorized Service Begin Date-Primary : 04/25/2019 EST Authorization Comments-Primary : clinicals faxed via [employer] for cont stay (only 1 day approved) Historical Authorization Comments-Primary : Comment 1: per [facility] inpt approved 1 day auth# [id number] (FRANCY MILIAN, Scrap Separator 04/24/2019 13:26) BULMARO DUONG, RN-Utilization Review - 04/26/2019 13:11 EST Electronically signed by [facility], [facility] Conversion Community Service Technician Cerner at 08/23/2022 11:19 AM CDT documented in this encounter Plan of Treatment Not on file documented as of this encounter Visit Diagnoses Not on filedocumented in this encounter
--- OUTSIDE RECORDS SUMMARY | 2024-02-20 09:21 | XMS_ITS | Encounter Summary ---
Author Organization [employer] Address [address] [place] [address] Care Team Providers Care Bilingual Middle School Teacher Name Role Phone Unavailable Primary Care Provider Unavailabl e Encounter Details Date Type Department Care Team (Late st Contact Info) Description 04/25/2019 Historic Encounter [address] [address] Provider, Luciano Bronson MD Social [...] Name Priority Date/Time Associated Diagnosis Comments ABO/RH CONFIRMATION/RETYPE ([place] BKR) Routine 04/25/2019 8:37 AM EST documented in this encounter Results * ABO/RH CONFIRMATION/RETYPE (04/25/2019 8:37 AM EST) Method Tube 04/25/2019 1:55 PM EST Anti-A 0 04/25/2019 1:55 PM EST Anti-B 0 04/25/2019 1:55 PM EST Anti-D 4+ 04/25/2019 1:55 PM EST Con NT 04/25/2019 1:55 PM EST A1 4+ 04/25/2019 1:55 PM EST B 4+ 04/25/2019 1:55 PM EST ABO/Rh Repeat O POS 04/25/2019 1:55 PM EST Blood 04/25/2019 8:37 AM EST 04/25/2019 1:48 PM EST [facility] Historical Provider MD JORDAN BLOOD BANK TEST O RDERABLES Final Result [facility] [address] [phone] documented in this encounter Visit Diagnoses Not on filedocumented in this encounter
--- OUTSIDE RECORDS SUMMARY | 2024-02-20 09:21 | XMS_ITS | Encounter Summary ---
Author Organization [employer] Address [address] [place] [address] Care Team Providers Care Direct Marketing Representative Name Role Phone Unavailable Primary Care Provider Unavailabl e Encounter Details Date Type Department Care Team (Late st Contact Info) Description 04/27/2019 Historic Encounter [address] [address] Provider, Luciano Bronson MD Social [...] Date/Time Associated Diagnosis Comments GLUCOSE-POC Routine 04/27/2019 8:57 PM EST documented in this encounter Results * (ABNORMAL) Glucose, Point of Care (04/27/2019 8:57 PM EST) Glucose POC2 144(H) 70 - 110 mg/dL 04/28/2019 1:57 AM EST [facility] Tip Puncher [id number] 04/28/2019 1:57 AM EST [facility] Device SN [id number] 04/28/2019 1:57 AM EST [facility] Device Comment1 Notified Nurse RBV 04/28/2019 1:57 AM EST [facility] Blood 04/27/2019 8:57 PM EST 04/28/2019 2:00 AM EST [facility] Historical Provider POINT OF CARE TEST OR DERABLES Final Result [facility] [address] [phone] documented in this encounter Visit Diagnoses Not on filedocumented in this encounter
--- OUTSIDE RECORDS SUMMARY | 2024-02-20 09:21 | XMS_ITS | Encounter Summary ---
Author Organization [employer] Address [address] [place] [address] Care Team Providers Care Commercial Escrow Assistant Name Role Phone Unavailable Primary Care Provider Unavailabl e Encounter Details Date Type Department Care Team (Late st Contact Info) Description 04/25/2019 Transcribed Document [address] [address] Provider, Luciano Bronson MD Social History Tobacco Use Types Packs/Day Years Used Date Smoking Tobacco: Never Assessed Comments Unknown Sex and Gender Information Value Date Recorded Sex Assigned at Not on file Legal Sex Female 6:01 PM CDT Gender Identity Not on file Sexual Orientation Not on file documented as of this encounter Miscellaneous Notes * Cerner Conversion Note - [facility] Aiyana ProviderMD - 04/25/2019 10:03 AM EST Procedural Documentation Entered On: 04/25/2019 9:08 EST Performed On: 04/25/2019 9:03 EST by RICARDO Rojas RN Procedure Documentation Procedure to be Performed : a line Time Out Pause Time : 04/25/2019 9:00 EST All Activity Suspended : Yes Team Verbally Confirms Information : Correct patient identity, Correct side and site are marked, Consent form is present and accurate, Agreement on the procedure to be done, Correct patient position, Relevant images/results properly labeled/appropriately displayed, Confirm the skin prep has dried, Confirm prosthesis/implant/device is present, Performed in location of procedure after prepped/draped, Performed before each procedure if multiple procedures, Reconcile problems if responses among team members differ Procedure Performed : jimy Proper Use of Sterile Apparel per Policy : Yes Procedure Case Attendee : JOB MOTLEY MD-ANS Procedure Case Attendee Role : Anesthesiologist Procedure Case Attendee Role 2 : painter bottom Case Attendee 2 : RICARDO Rojas RN Procedure Case Attendee Role 3 : painter bottom Case Attendee 3 : JACKIE PERALTA RN Wilson, DUSTI W, RN - 04/25/2019 9:03 EST Danyell Level I Post Anesthesia Assessment Danyell I Activity Status : Moves 4 extremities voluntarily or on command Danyell l Respiratory Component : Able to deep breathe and cough freely Danyell I Circulation Component : BP 20% of preanesthetic level Danyell I Consciousness : Arouses on calling Danyell l Oxygen Saturation : Needs oxygen to maintain > 92% Danyell l Score : 8 RICARDO Rojas RN - 04/25/2019 9:03 EST Vital Measurements Peripheral Pulse Rate : 77 bpm Respiratory Rate : 20 Breaths/Min Systolic Blood Pressure : 130 mmHg Diastolic Blood Pressure : 49 mmHg (LOW) Oxygen Saturation : 96 % Oxygen Therapy Mode : Nasal cannula Oxygen Flow Rate : 3 Liter/Min RICARDO Rojas RN - 04/25/2019 9:03 EST Oxygen Therapy Oxygen Therapy Mode : Nasal cannula Oxygen Flow Rate : 3 Liter/Min Oxygen Saturation : 96 % RICARDO Rojas RN - 04/25/2019 9:03 EST documented in this encounter Plan of Treatment Not on file documented as of this encounter Visit Diagnoses Not on filedocumented in this encounter
--- OUTSIDE RECORDS SUMMARY | 2024-02-20 09:21 | XMS_ITS | Encounter Summary ---
Author Organization [employer] Address [address] [place] [address] Care Team Providers Care Evaluation Manager Name Role Phone Unavailable Primary Care Provider Unavailabl e Encounter Details Date Type Department Care Team (Late st Contact Info) Description 04/26/2019 Transcribed Document [address] [address] Provider, Luciano Bronson MD Social [...] [facility] Aiyana Provider, - 04/26/2019 2:31 PM EST Treatment Intervention, PT Entered On: 04/28/2019 15:00 EST Performed On: 04/28/2019 14:54 EST by YOANNA GUERRERO, LANCE General Information, PT Visit Type, PT : Treatment Note Patient Orders : Order Date Order Ordering 04/25/2019 17:44 Physical Therapy Eval and Treat Ordered By: MELIZA DOWNS MD-SNU 04/26/2019 11:31 Physical Therapy Eval and Treat Ordered By: MELIZA DOWNS MD-SNU 04/26/2019 13:31 PT Additional Treatment Ordered By: AGUILA DANIELS, PT 04/27/2019 12:50 Physical Therapy Eval and Treat Ordered By: MELIZA DOWNS MD-SNU 04/27/2019 12:50 Physical Therapy Eval and Treat Ordered By: MELIZA DOWNS MD-SNU Active Diagnoses : No Qualifying Diagnoses Therapy Diagnosis, PT : Decreased mobility Admission Date : 04/25/2019 06:38 Personal Devices : Personal Devices No Devices Recorded Assistive Devices : Assistive Devices No Devices Recorded Precautions in Place : Fall prevention measures, Spinal Precautions YOANNA GUERRERO, PT - 04/28/2019 14:54 EST General Status Patient Received Status : Supine in bed Treatment Start Time : 04/28/2019 13:47 EST Patient Left Status : Supine in bed, RN/PCT informed, Family/Visitors at bedside, All needs met and within reach RN/PCT Informed Comment : Noreen RN Treatment End Time : 04/28/2019 13:58 EST Treatment Time : 11 Minute(s) YOANNA GUERRERO, PT - 04/28/2019 14:54 EST Functional Mobility Mobility Grid Bed Roll Right : Rehab Modified independence Bed Scooting : Rehab Modified independence Supine to Sit : Rehab Modified independence Sit to Stand : Rehab Modified independence Stand to Sit : Rehab Modified independence Sit to Supine : Rehab Modified independence YOANNA GUERRERO, PT - 04/28/2019 14:54 EST Gait Training/Assessment, PT Gait Assistance Level : Assist, minimal Walking Distance : 140 ft Ambulatory Devices : Gait belt, Walker, front wheel Gait Deviations : Yes Left Lower Gait Deviation : Sammie, decreased Right Lower Gait Deviation : Sammie, decreased Gait Training Comment : Reduced stability with left foot and ankle but better compared to earlier session. YOANNA GUERRERO, PT - 04/28/2019 14:54 EST Cognitive Treatment, PT Orientation : Oriented x 4 YOANNA GUERRERO, PT - 04/28/2019 14:54 EST Edu Topics Physical Therapy Education Grid Bed Mobility Training : Needs further teaching Gait Training : Needs further teaching Role of Physical Therapy : Verbalizes understanding, Returns demonstration, Needs further teaching Transfer Training : Needs further teaching YOANNA GUERRERO, PT - 04/28/2019 14:54 EST Plan of Care, PT PT Tx Plan/Goals Established w Patient : Yes YOANNA GUERRERO, PT - 04/28/2019 14:54 EST Short Term Goals Mobility/Bed Mobility STG PT Grid Goal #1 Goal #2 Activity : Supine to sit Sit to stand Assist : Assist, minimal Assist, moderate Equipment : Rail, bed Walker, front wheel Date to Meet : 05/03/2019 EST 05/03/2019 EST Goal Status : Goal met Goal met Date Met : 04/28/2019 EST 04/27/2019 EST YOANNA GUERRERO, PT - 04/28/2019 14:54 EST YOANNA GUERRERO, PT - 04/28/2019 14:54 EST Ambulation STG Grid Goal #1 Device : Walker, front wheel Distance : 25' Assist : Assist, minimal Date to Meet : 05/03/2019 EST Goal Status : Goal met Date Met : 04/27/2019 EST YOANNA GUERRERO, PT - 04/28/2019 14:54 EST [facility] Goals Mobility/Bed Mobility LTG PT Grid Goal #1 Goal #2 Activity : Supine to sit Sit to stand Assist : Independent, modified Supervision or set-up Equipment : Rail, bed Walker, front wheel Date to Meet : 05/10/2019 EST 05/10/2019 EST Goal Status : Goal met Goal met Date Met : 04/28/2019 EST 04/28/2019 EST YOANNA GUERRERO, PT - 04/28/2019 14:54 EST YOANNA GUERRERO, PT - 04/28/2019 14:54 EST Ambulation LTG Grid Goal #1 Device : Walker, front wheel Distance : 200' Assist : Supervision or set-up Date to Meet : 05/10/2019 EST Goal Status : Progressing, continue YOANNA GUERRERO, PT - 04/28/2019 14:54 EST Treatment Note Subjective Comment : Patient consents to ambulation and states that she is feeling signficantly better than at AM session. Patient's Response to Treatment : Good. Assessment : Patient with improved ambulation tolerance and step clearance on right but did fatigue at end of session. Plan for Treatment : Per POC. YOANNA GUERRERO, PT - 04/28/2019 14:54 EST Anticipated Discharge Needs, OT/PT Anticipated Discharge to : Home, with family care YOANNA GUERRERO, PT - 04/28/2019 14:[address] [facility] Charges Gait Training Each 15 Min : 1 YOANNA GUERRERO PT - 04/28/2019 14:54 EST documented in this encounter Plan of Treatment Not on file documented as of this encounter Visit Diagnoses Not on filedocumented in this encounter
--- OUTSIDE RECORDS SUMMARY | 2024-02-20 09:21 | XMS_ITS | Encounter Summary ---
Author Organization [email or web address] Address [address] [place] [address] Care Team Providers Care Senior Technical Project Manager Name Role Phone Unavailable Primary Care Provider Unavailabl e Encounter Details Date Type Department Care Team (Late st Contact Info) Description 04/26/2019 Transcribed Document [facility] [address] [facility] [address] [place] [address] Meliza Downs Jr., MD [address] [place] [address] [address] Social History Tobacco Use Types Packs/Day Years Used Date Smoking Tobacco: Never Assessed Comments Unknown Sex and Gender Information Value Date Recorded Sex Assigned at Not on file Legal Sex Female 6:01 PM CDT Gender Identity Not on file Sexual Orientation Not on file documented as of this encounter Miscellaneous Notes * Cerner Conversion Note - Meliza Downs Jr., MD - 04/26/2019 12:32 PM EST Patient: GERTRUDIS DALY Age: 63 years Sex: Female : 1955 Associated Diagnoses: None Author: MELIZA DOWNS MD-SNU af vss 4+/5 diffusely c/o diff leg burning dressing dry looks uncomfortable head < 20. stay as flat as possible. bedrest when not working w/ p.t. up ad barbara w/ p.t. add lyica. leg burning expected. keep goodman stay in icu for obs and aggressive pain control documented in this encounter Plan of Treatment Not on file documented as of this encounter Visit Diagnoses Not on filedocumented in this encounter
--- OUTSIDE RECORDS SUMMARY | 2024-02-20 09:21 | XMS_ITS | Encounter Summary ---
Author Organization [employer] Address [address] [place] [address] Care Team Providers Care Felting Machine Operator Name Role Phone Unavailable Primary Care Provider Unavailabl e Encounter Details Date Type Department Care Team (Late st Contact Info) Description 04/25/2019 Historic Encounter [facility] [address] [place] [address] Provider, Luciano Bronson MD Social History [...] Procedure Name Priority Date/Time Associated Diagnosis Comments ANTIBODY SCREEN - ABSCGEL((BKR) Routine 04/25/2019 8:35 AM EST documented in this encounter Results * Antibody Screen (04/25/2019 8:35 AM EST) SC1 0 04/25/2019 2:20 PM EST SC2 0 04/25/2019 2:20 PM EST SC3 0 04/25/2019 2:20 PM EST Antibody Screen Negative ABSC 04/25/2019 2:20 PM EST Blood 04/25/2019 8:35 AM EST 04/25/2019 1:47 PM EST [facility] Historical Provider MD JORDAN BLOOD BANK TEST O RDERABLES Final Result [facility] [address] [place], [place] [address] [phone] documented in this encounter Visit Diagnoses Not on filedocumented in this encounter
--- OUTSIDE RECORDS SUMMARY | 2024-02-20 09:21 | XMS_ITS | Encounter Summary ---
Author Organization [employer] Address [address] [place] [address] Care Team Providers Care Padder Cushion Name Role Phone Unavailable Primary Care Provider Unavailabl e Encounter Details Date Type Department Care Team (Late st Contact Info) Description 04/28/2019 Transcribed Document [facility] Neurology - [address] [facility] [address] [place] [address] Meliza Downs Jr., MD [address] [place] [address] [address] Social History Tobacco Use Types Packs/Day Years Used Date Smoking Tobacco: Never Assessed Comments Unknown Sex and Gender Information Value Date Recorded Sex Assigned at Not on file Legal Sex Female 6:01 PM CDT Gender Identity Not on file Sexual Orientation Not on file documented as of this encounter Miscellaneous Notes * Cerner Conversion Note - Meliza Downs Jr., MD - 04/28/2019 5:37 PM EST Patient: GERTRUDIS DALY Age: 63 years Sex: Female : 1955 Associated Diagnoses: None Author: MELIZA DOWNS MD-SNU pt looks much better today has 4+/5 strength 3-4/5 left plantar flexion c/d/i pain better pain meds decreased p.t. pain control prob should get urology to see before rehab for neurogenic bladderr. i am sure this is going to be an issue at least for a while. family [place]hab [place]. i dw case managemenrt. documented in this encounter Plan of Treatment Not on file documented as of this encounter Visit Diagnoses Not on filedocumented in this encounter
--- OUTSIDE RECORDS SUMMARY | 2024-02-20 09:21 | XMS_ITS | Encounter Summary ---
Author Organization [employer] Address [address] [place] [address] Care Team Providers Care Lithograph Designer Name Role Phone Unavailable Primary Care Provider Unavailabl e Encounter Details Date Type Department Care Team (Late st Contact Info) Description 04/24/2019 Transcribed Document [address] [address] Luciano Ang MD Social History Tobacco Use Types Packs/Day Years Used Date Smoking Tobacco: Never Assessed Comments Unknown Sex and Gender Information Value Date Recorded Sex Assigned at Not on file Legal Sex Female 6:01 PM CDT Gender Identity Not on file Sexual Orientation Not on file documented as of this encounter Miscellaneous Notes * Cerner Conversion Note - [facility] Aiyana ProviderMD - 04/24/2019 2:26 PM EST UM Authorization Entered On: 04/24/2019 13:27 EST Performed On: 04/24/2019 13:26 EST by FRANCY MILIAN Oyster Grower Primary Insurance Authorization Authorization and Policy Numbers : Insurance 1 Health Plan: AETNA MEDICARE REPL Policy Number: [id number] Authorization Number: [id number] Insurance Primary Name : Mariela [id number] Authorization Status-Primary : Admit approved Authorization Number-Primary : [id number] Authorized Service Begin Date-Primary : 04/25/2019 EST Authorization Comments-Primary : per STAR inpt approved 1 day auth# [id number] Historical Authorization Comments-Primary : No Authorization Comments Found FRANCY MILIAN, Oyster Grower - 04/24/2019 13:26 EST documented in this encounter Plan of Treatment Not on file documented as of this encounter Visit Diagnoses Not on filedocumented in this encounter
--- OUTSIDE RECORDS SUMMARY | 2024-02-20 09:21 | XMS_ITS | Encounter Summary ---
Author Organization [employer] Address [address] [place] [address] Care Team Providers Care Chief Psychologist Name Role Phone Unavailable Primary Care Provider Unavailabl e Encounter Details Date Type Department Care Team (Late st Contact Info) Description 04/28/2019 Historic Encounter [address] [address] Provider, Luciano Bronson MD Social [...] Date/Time Associated Diagnosis Comments GLUCOSE-POC Routine 04/28/2019 11:42 AM EST documented in this encounter Results * (ABNORMAL) Glucose, Point of Care (04/28/2019 11:42 AM EST) Glucose POC2 159(H) 70 - 110 mg/dL 04/28/2019 4:42 PM EST [facility] Window Dresser [id number] 04/28/2019 4:42 PM EST [facility] Device SN [id number] 04/28/2019 4:42 PM EST [facility] Device Comment1 Notified Nurse RBV 04/28/2019 4:42 PM EST [facility] Blood 04/28/2019 11:4 2 AM EST 04/28/2019 4:45 PM EST [facility] Historical Provider POINT OF CARE TEST OR DERABLES Final Result [facility] [address] [phone] documented in this encounter Visit Diagnoses Not on filedocumented in this encounter
--- OUTSIDE RECORDS SUMMARY | 2024-02-20 09:21 | XMS_ITS | Encounter Summary ---
Author Organization [employer] Address [address] [place] [address] Care Team Providers Care Office Secretary Name Role Phone Unavailable Primary Care Provider Unavailabl e Encounter Details Date Type Department Care Team (Late st Contact Info) Description 04/27/2019 Transcribed Document [address] [address] Ashia [facility] MD Aiyana Social History Tobacco Use Types Packs/Day Years Used Date Smoking Tobacco: Never Assessed Comments Unknown Sex and Gender Information Value Date Recorded Sex Assigned at Not on file Legal Sex Female 6:01 PM CDT Gender Identity Not on file Sexual Orientation Not on file documented as of this encounter Miscellaneous Notes * Cerner Conversion Note - [facility] Aiyana ProviderMD - 04/27/2019 6:00 AM EST Chart Check - Review Order Profile Entered On: 04/27/2019 5:06 EST Performed On: 04/27/2019 5:00 EST by Daniela Buckner RN Chart Check Powerplans Initiated/Discontinued as Appropriate : Yes All Active Orders Reviewed : Yes Daniela Buckner RN - 04/27/2019 5:06 EST Electronically signed by Carito [facility] Conversion Line Haul Truck Driver Cerner at 08/23/2022 11:19 AM CDT documented in this encounter Plan of Treatment Not on file documented as of this encounter Visit Diagnoses Not on filedocumented in this encounter
--- OUTSIDE RECORDS SUMMARY | 2024-02-20 09:21 | XMS_ITS | Encounter Summary ---
Author Organization [employer] Address [address] [place] [address] Care Team Providers Care Hydroelectric Production Technician Name Role Phone Unavailable Primary Care Provider Unavailabl e Encounter Details Date Type Department Care Team (Late st Contact Info) Description 04/27/2019 Transcribed Document [facility] - [facility] [address] [facility] [address] [place] [address] Meliza Downs Jr., MD [address] [place] [address] [address] Social History Tobacco Use Types Packs/Day Years Used Date Smoking Tobacco: Never Assessed Comments Unknown Sex and Gender Information Value Date Recorded Sex Assigned at Not on file Legal Sex Female 6:01 PM CDT Gender Identity Not on file Sexual Orientation Not on file documented as of this encounter Miscellaneous Notes * Cerner Conversion Note - Meliza Downs Jr., MD - 04/27/2019 1:46 PM EST Patient: GERTRUDIS DALY Age: 63 years Sex: Female : 1955 Associated Diagnoses: None Author: MELIZA DOWNS MD-SNU sleeping today had bad night. leg pain. rn states moving legs well. dressing c/d/i. i did not aqwaken bc she just got to sleep. talked to and son. ttf increase lyrica pain control p.t. flat < 20 degrees as much as possible monitor for leak documented in this encounter Plan of Treatment Not on file documented as of this encounter Visit Diagnoses Not on filedocumented in this encounter
--- OUTSIDE RECORDS SUMMARY | 2024-02-20 09:21 | XMS_ITS | Encounter Summary ---
Author Organization [employer] Address [address] [place] [address] Care Team Providers Care Store Loss Prevention Manager Name Role Phone Unavailable Primary Care Provider Unavailabl e Encounter Details Date Type Department Care Team (Late st Contact Info) Description 04/28/2019 Transcribed Document [address] [address] Provider, Luciano Bronson MD Social History Tobacco Use Types Packs/Day Years Used Date Smoking Tobacco: Never Assessed Comments Unknown Sex and Gender Information Value Date Recorded Sex Assigned at Not on file Legal Sex Female 6:01 PM CDT Gender Identity Not on file Sexual Orientation Not on file documented as of this encounter Miscellaneous Notes * Cerner Conversion Note - [facility] Aiyana ProviderMD - 04/28/2019 6:13 PM EST Initial Discharge Planning Entered On: 04/28/2019 17:18 EST Performed On: 04/28/2019 17:13 EST by ROMELIA MCADAMS RN-Mill Turner Initial Assessment I Previously Documented Living Environment : No qualifying data available. Living Situation : Home Patient Lives With : Spouse Is the Patient a Caregiver at Home? : No Emergency Contact #1 : Michelle Gonzalez Emergency Contact #1 cell Emergency Contact #1 Relationship : Emergency Contact #2 : Kandi Burt Emergency Contact #2 cell Emergency Contact #2 Relationship : daughter ROMELIA MCADAMS, RN-Mill Turner - 04/28/2019 17:13 EST Initial Assessment II Sensory and Motor Deficits : None ROMELIA MCADAMS RN-Mill Turner - 04/28/2019 17:13 EST Discharge Needs I Anticipated Discharge Date : 04/30/2019 EST Anticipated Discharge To, CM : care home facility Current Home Treatment/Equipment : Current Home Treatment/Equipment No qualifying data available. Documentation Status Complete : Yes ROMELIA MCADAMS RN-Mill Turner - 04/28/2019 17:13 EST Discharge Needs II Professional Skilled Services : Professional Skilled Services No qualifying data available. Needs Assistance with Transportation : Maybe Discharge Options Discussed with Patient : Short term rehabilitation ROMELIA MCADAMS RN-Mill Turner - 04/28/2019 17:13 EST Narrative Note Narrative Note : 63yo female pt s/p L3-5 lami with resection of cauda equina tumor. CBR except when working with PT/OT. Met with pt, spouse, and daughter at bedside during rounds to discuss DCP. They request rehab at [facility] as pt's sister works there. CM also gave list of SNF in [facility] and [facility] with quality and resource information in case no bed or not in contract/network with pt's payor source. Referral sent to [facility] via [facility] and left message with liaison . NSY states pt will not be ready for dc for a couple more days. CM will follow. ROMELIA MCADAMS RN-Mill Turner - 04/28/2019 17:13 EST documented in this encounter Plan of Treatment Not on file documented as of this encounter Visit Diagnoses Not on filedocumented in this encounter
--- OUTSIDE RECORDS SUMMARY | 2024-02-20 09:21 | XMS_ITS | Encounter Summary ---
Author Organization [employer] Address [address] [place] [address] Care Team Providers Care Optical Engineering Manager Name Role Phone Unavailable Primary Care Provider Unavailabl e Encounter Details Date Type Department Care Team (Late st Contact Info) Description 04/28/2019 Transcribed Document [address] [address] Provider, Luciano Bronson MD Social History Tobacco Use Types Packs/Day Years Used Date Smoking Tobacco: Never Assessed Comments Unknown Sex and Gender Information Value Date Recorded Sex Assigned at Not on file Legal Sex Female 6:01 PM CDT Gender Identity Not on file Sexual Orientation Not on file documented as of this encounter Miscellaneous Notes * Cerner Conversion Note - [facility] Aiyana ProviderMD - 04/28/2019 10:32 AM EST UM Authorization Entered On: 04/28/2019 9:32 EST Performed On: 04/28/2019 9:32 EST by Gali Newman Rn-Utilization Review Primary Insurance Authorization Authorization and Policy Numbers : Insurance 1 Health Plan: AETNA MEDICARE REPL Policy Number: [id number] Authorization Number: [id number] Insurance Primary Name : Mariela [id number] Authorization Status-Primary : Awaiting callback Authorization Number-Primary : [id number] Authorized Service Begin Date-Primary : 04/25/2019 EST Historical Authorization Comments-Primary : Comment 1: clinicals faxed via [employer] for cont stay (only 1 day approved) (BULMARO DUONG, RN-Utilization Review 04/26/2019 13:11) Comment 2: per [facility] inpt approved 1 day auth# [id number] (FRANCY MILIAN, Vp Packaging 04/24/2019 13:26) Gali Newman Rn-Utilization Review - 04/28/2019 9:32 EST Electronically signed by [facility], [facility] Conversion Ciso Cerner at 08/23/2022 11:19 AM CDT documented in this encounter Plan of Treatment Not on file documented as of this encounter Visit Diagnoses Not on filedocumented in this encounter
--- OUTSIDE RECORDS SUMMARY | 2024-02-20 09:21 | XMS_ITS | Encounter Summary ---
Author Organization [employer] Address [address] [place] [address] Care Team Providers Care Custom Marine Canvas Fabricator Name Role Phone Unavailable Primary Care Provider Unavailabl e Encounter Details Date Type Department Care Team (Late st Contact Info) Description 04/28/2019 Historic Encounter [address] [address] Provider, Luciano Bronson MD [...] Priority Date/Time Associated Diagnosis Comments AUTOMATED DIFFERENTIAL ([facility] DATA CONV) Routine 04/28/2019 3:07 AM EST documented in this encounter Results * (ABNORMAL) AUTOMATED DIFFERENTIAL ([facility] BKR DATA CONV) (04/28/2019 3:07 AM EST) Neut% 75.8(H) 34.0 - 71.0 % 04/28/2019 8:42 AM EST Lymph% 12.7(L) 19.3 - 53.1 % 04/28/2019 8:42 AM EST [place]% 9.2(H) 3.0 - 9.0 % 04/28/2019 8:42 AM EST Eos% 1.2 0.0 - 7.0 % 04/28/2019 8:42 AM EST Baso% 0.6 0.0 - 1.5 % 04/28/2019 8:42 AM EST IG% 0.50 0.00 - 0.60 % 04/28/2019 8:42 AM EST Neut# 7.41(H) 1.56 - 6.13 K/uL 04/28/2019 8:42 AM EST Lymph# 1.24 1.00 - 3.90 x10(3)/uL 04/28/2019 8:42 AM EST [place]# 0.90 0.16 - 1.00 K/uL 04/28/2019 8:42 AM EST Eos# 0.12 0.00 - 0.80 x10(3)/uL 04/28/2019 8:42 AM EST Baso# 0.06 0.00 - 0.20 x10(3)/uL 04/28/2019 8:42 AM EST IG# 0.05 0.00 - 0.05 x10(3)/uL 04/28/2019 8:42 AM EST Blood 04/28/2019 3:07 AM EST 04/28/2019 8:38 AM EST Narrative [facility] - 04/28/2019 8:44 AM EST Added by Discern Expert [facility] Historical Provider LAB BLOOD ORDERABLES Final Result [facility] [address] [phone] documented in this encounter Visit Diagnoses Not on filedocumented in this encounter
--- OUTSIDE RECORDS SUMMARY | 2024-02-20 09:21 | XMS_ITS | Encounter Summary ---
Author Organization [employer] Address [address] [place] [address] Care Team Providers Care Portfolio Lead Name Role Phone Unavailable Primary Care Provider Unavailabl e Encounter Details Date Type Department Care Team (Late st Contact Info) Description 04/28/[address] [address] Provider, [facility] MD Aiyana Social History Tobacco Use [...] Name Priority Date/Time Associated Diagnosis Comments URINALYSIS MICROSCOPIC ([facility] BK DATA CONV) Routine 04/28/2019 8:57 AM EST documented in this encounter Results * (ABNORMAL) URINALYSIS MICROSCOPIC ([facility] BKR DATA CONV) (04/28/2019 8:57 AM EST) Correlate UA Correlated Correlated 04/28/2019 4:58 PM EST Ur RBC 10-20(A) /HPF 04/28/2019 4:58 PM EST Ur WBC 0-2 /HPF 04/28/2019 4:58 PM EST Ur Bacteria Trace(A) 04/28/2019 4:58 PM EST 04/28/2019 8:57 AM EST 04/28/2019 4:30 PM EST Narrative [facility] - 04/28/2019 4:58 PM EST Added by Discern Expert us Sjh Historical Provider URINE ORDERABLES Rosie patel Result [facility] [address] [phone] documented in this encounter Visit Diagnoses Not on filedocumented in this encounter
--- OUTSIDE RECORDS SUMMARY | 2024-02-20 09:21 | XMS_ITS | Encounter Summary ---
Author Organization [employer] Address [address] [place] [address] Care Team Providers Care Press Service Reader Name Role Phone Unavailable Primary Care Provider Unavailabl e Encounter Details Date Type Department Care Team (Late st Contact Info) Description 04/27/2019 Transcribed Document [address] [address] Ashia [facility] MD Aiyana Social History Tobacco Use Types Packs/Day Years Used Date Smoking Tobacco: Never Assessed Comments Unknown Sex and Gender Information Value Date Recorded Sex Assigned at Not on file Legal Sex Female 6:01 PM CDT Gender Identity Not on file Sexual Orientation Not on file documented as of this encounter Miscellaneous Notes * Cerner Conversion Note - [facility] Aiyana ProviderMD - 04/27/2019 6:00 PM EST Chart Check - Review Order Profile Entered On: 04/27/2019 18:57 EST Performed On: 04/27/2019 17:00 EST by SHAWNA WISE RN Chart Check Powerplans Initiated/Discontinued as Appropriate : Yes All Active Orders Reviewed : Yes SHAWNA WISE RN - 04/27/2019 18:57 EST Electronically signed by Carito [facility] Conversion Lens Blocker Cerner at 08/23/2022 11:19 AM CDT documented in this encounter Plan of Treatment Not on file documented as of this encounter Visit Diagnoses Not on filedocumented in this encounter
--- OUTSIDE RECORDS SUMMARY | 2024-02-20 09:21 | XMS_ITS | Encounter Summary ---
Author Organization [employer] Address [address] [place] [address] Care Team Providers Care Heat Treating Furnace Tender Name Role Phone Unavailable Primary Care Provider Unavailabl e Encounter Details Date Type Department Care Team (Late st Contact Info) Description 04/25/2019 Transcribed Document [address] [address] Provider, [facility] MD Aiyana Social History Tobacco Use Types Packs/Day Years Used Date Smoking Tobacco: Never Assessed Comments Unknown Sex and Gender Information Value Date Recorded Sex Assigned at Not on file Legal Sex Female 6:01 PM CDT Gender Identity Not on file Sexual Orientation Not on file documented as of this encounter Miscellaneous Notes * Cerner Conversion Note - [facility] Aiyana Provider, - 04/25/2019 1:05 PM EST [facility] Main OR Preop Summary Primary Physician: MELIZA DOWNS MD-[facility] Finalized Date/Time: 04/25/19 13:08:43 Pt. Name: KANG DALYGHANSHYAM Gilbert /Sex: 1955 Female Med Rec #: [id number] Physician: MELIZA DOWNS MD-[facility] Financial #: [id number] Pt. Type: I Room/Bed: ASA/1 Admit/Disch: 04/25/19 06:38:00 - Institution: [facility] PreOp Case Times Entry 1 In Preop 04/25/19 07:51:00 Ready for Holding n/a Room Patient Ready for 04/25/19 09:28:00 Surgery Patient Out of Preop 04/25/19 11:14:00 Patient Out of n/a Holding Room Last Modified By: CHRISTELLE MCCORD RN 04/25/19 13:08:36 [facility] PreOp Case Times Audit 04/25/19 13:08:36 Roll On Worker: EMILIE Modifier: ROMEROAV <+> 1 Patient Out of Preop 04/25/19 09:28:42 Roll On Worker: WILSONDL Modifier: WILSONDL <+> 1 Patient Ready for Surgery Finalized By: CHRISTELLE MCCORD RN Document Signatures Signed By: CHRISTELLE MCCORD RN 04/25/19 13:08 Electronically signed by Carito [facility] Conversion Beer Brewer Cerner at 08/23/2022 11:18 AM CDT documented in this encounter Plan of Treatment Not on file documented as of this encounter Visit Diagnoses Not on filedocumented in this encounter
--- OUTSIDE RECORDS SUMMARY | 2024-02-20 09:21 | XMS_ITS | Encounter Summary ---
Author Organization [employer] Address [address] [place] [address] Care Team Providers Care Limousine Driver Name Role Phone Unavailable Primary Care Provider Unavailabl e Encounter Details Date Type Department Care Team (Late st Contact Info) Description 04/25/2019 Historic Encounter [facility] [address] [place] [address] Provider, Luciano Bronson MD Social [...] Date/Time Associated Diagnosis Comments GLUCOSE-POC Routine 04/25/2019 6:30 PM EST documented in this encounter Results * (ABNORMAL) Glucose, Point of Care (04/25/2019 6:30 PM EST) Glucose POC2 122(H) 70 - 110 mg/dL 04/25/2019 11:30 PM EST [facility] Sausage Maker [id number] 04/25/2019 11:30 PM EST [facility] Device SN [id number] 04/25/2019 11:30 PM EST [facility] Blood 04/25/2019 6:30 PM EST 04/25/2019 11:35 PM EST [facility] Historical Provider POINT OF CARE TEST OR DERABLES Final Result [facility] [address] [place], [place] [address] [phone] documented in this encounter Visit Diagnoses Not on filedocumented in this encounter
--- OUTSIDE RECORDS SUMMARY | 2024-02-20 09:22 | XMS_ITS | Data Portability ---
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 Lane Villalba for chronic pain management. The patient has a history of multiple spinal surgeries, including a schwannoma removal (2019). The patient also has a history of SCS explant x2 (initial implant in 2014 and explant in 2019). The patient was following with Dr. Cabello, whom is apparently not practicing at the location anymore. Patient presents today 2 week s/p TFESI right L5 and S1. She reports significantly improved back pain >50% with resolved RLE radicular pain. She reports returned right troch bursitis. She has had prior right GTB injection in 12/22 with resolved pain for months. She continues tramadol 50 mg every 2 to 3 times depending on her pain and activity. Pain today is 5/10 Patient is still not interested in pursuing SCS therapy at this time. Since the last visit, the patient contemplated pursuing SCS therapy again, but ultimately decided that she doesn't want to pursue at this time. I think the patient may be a good candidate for neuromodulation, as their pain has been refractory to conservative, pharmacologic, interventional, and surgical approaches. Although the patient has a history of SCS explant x2, I think they are a good candidate for SCS therapy considering her pain pattern has changed following the most recent surgery (schwannoma removal). The patient has attempted to make lifestyle modifications, but pain continues to impede performing ADLs, thereby negatively affecting quality of life. The patient primarily complains of low back pain with radiation down the RLE with sensation changes. 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 Of note, the patient has experienced intermittent bowel/bladder changes since their last lumbar surgery, for which they have been evaluated by neurosurgery. I again advised the patient to go to the ER if they experience new or worsening symptoms, such as saddle anesthesia or weakness. At this time, we will address the right trochanteric bursitis by repeating right troch bursa injection. I have also discussed with her the importance of gaining and maintaining core hip strength to remain pain free. Patient is not interested in formal PT and I have given her a sheet of at home exercises. - schedule right GTB injection - return post injection. -- I counseled the patient extensively and informed of the risks of the procedure, including the risk of paralysis, nerve damage, respiratory arrest, arrhythmias, stroke, weakness, and infection, which although very low, could result in or disability. The patient acknowledged to me that they understand and accept these risks. RN EDUCATION Extensive coordination of care provided by RN to educate patient on upcoming procedure and to coordinate obtaining extensive incoming medical records. I have discussed in great detail our potential treatment options which would include a rehabilitative approach to care. This program would include medication management, Physical Therapy, consideration for interventional procedures as appropriate, and lifestyle modification (diet, weight loss, exercise, smoking/tobacco cessation, holistic approach including meditation and yoga). The patient understands and agrees prior to proceeding with this plan. _ __ __ __ __ __ __ __ __ __ __ __ __ __ __ __ __ __ __ __ __ __ __ __ __ __ __ __ _ RECORDS REVIEW: As per clinic policy, we will have the patient sign a release to obtain previous imaging and clinical notes. _ __ __ __ __ __ __ __ __ __ __ __ __ __ __ __ __ __ __ __ __ __ __ __ __ __ __ __ _ PSYCH: Pain affecting Neuro-psych behavior was discussed. Discussed about pain psychological counseling as a part of the multimodal approach to pain treatment. _ __ __ __ __ __ __ __ __ __ __ __ __ __ __ __ __ __ __ __ __ __ __ __ __ __ __ __ _ REHABILITATION: Discussed with the patient the importance of diet, daily physical activity and PT. Discussed with the patient the need to be scheduled for physical therapy since physical therapy will prolong the benefits of the procedure and interventions. _ __ __ __ __ __ __ __ __ __ __ __ __ __ __ __ __ __ __ __ __ __ __ __ __ __ __ __ _ GENE: [id number] I have reviewed patient's GENE report prior to prescribing Schedule II, III, and IV medications that require review by law. [email or web address] Not available 11/20/2022 14:25:05 12/22/2022 12/22/2022 The patient is a 67 year old female referred by Dr. Lane Villalba for chronic pain management. The patient has a history of multiple spinal surgeries, including a schwannoma removal (2019). The patient also has a history of SCS explant x2 (initial implant in 2014 and explant in 2019). The patient was following with Dr. Cabello, whom is apparently not practicing at the location anymore. Since the last visit, the patient contemplated pursuing SCS therapy again, but ultimately decided that she doesn't want to pursue at this time. I think the patient may be a good candidate for neuromodulation, as their pain has been refractory to conservative, pharmacologic, interventional, and surgical approaches. Although the patient has a history of SCS explant x2, I think they are a good candidate for SCS therapy considering their pain pattern has changed following the most recent surgery (schwannoma removal). The patient has experienced intermittent bowel/bladder changes since their last lumbar surgery, for which they have been evaluated by neurosurgery. I again advised the patient to go to the ER if they experience new or worsening symptoms, such as saddle anesthesia or weakness. The patient presents to the clinic today 3 weeks S/P right GTB injection. The patient reports experiencing significant improvement in pain and function of nearly 100% in the short-term (approximately 1 day). The patient continues to complain of right hip pain, which negatively affects ambulation, thereby decreasing function. I think underlying right sacroiliitis and/or hip osteoarthritis may be involved. I will order a pelvic x-ray to assess the degree of degenerative changes and the overall bony architecture. The patient also complains of left foot pain, noting a history of left foot trauma. I will order a left foot x-ray to assess the degree of degenerative changes and the overall bony architecture. I will follow up post-imaging. -- I counseled the patient extensively and informed of the risks of the procedure, including the risk of paralysis, nerve damage, respiratory arrest, arrhythmias, stroke, weakness, and infection, which although very low, could result in or disability. The patient acknowledged to me that they understand and accept these risks. RN EDUCATION Extensive coordination of care provided by RN to educate patient on upcoming procedure and to coordinate obtaining extensive incoming medical records. I have discussed in great detail our potential treatment options which would include a rehabilitative approach to care. This program would include medication management, Physical Therapy, consideration for interventional procedures as appropriate, and lifestyle modification (diet, weight loss, exercise, smoking/tobacco cessation, holistic approach including meditation and yoga). The patient understands and agrees prior to proceeding with this plan. _ __ __ __ __ __ __ __ __ __ __ __ __ __ __ __ __ __ __ __ __ __ __ __ __ __ __ __ _ RECORDS REVIEW: As per clinic policy, we will have the patient sign a release to obtain previous imaging and clinical notes. _ __ __ __ __ __ __ __ __ __ __ __ __ __ __ __ __ __ __ __ __ __ __ __ __ __ __ __ _ PSYCH: Pain affecting Neuro-psych behavior was discussed. Discussed about pain psychological counseling as a part of the multimodal approach to pain treatment. _ __ __ __ __ __ __ __ __ __ __ __ __ __ __ __ __ __ __ __ __ __ __ __ __ __ __ __ _ REHABILITATION: Discussed with the patient the importance of diet, daily physical activity and PT. Discussed with the patient the need to be scheduled for physical therapy since physical therapy will prolong the benefits of the procedure and interventions. _ __ __ __ __ __ __ __ __ __ __ __ __ __ __ __ __ __ __ __ __ __ __ __ __ __ __ __ _ GENE: [id number] I have reviewed patient's GENE report prior to prescribing Schedule II, III, and IV medications that require review by law. [email or web address] Not available 12/25/2022 06:15:28 01/15/2023 01/15/2023 The patient is a 67 year old female referred by Dr. Lane Villalba for chronic pain management. The patient has a history of multiple spinal surgeries, including a schwannoma removal (2019). The patient also has a history of SCS explant (initial implant in 2014 and explant in 2019). The patient was following with Dr. Cabello, whom is apparently not practicing at the location anymore. Since the last visit, the patient contemplated pursuing SCS therapy again, but ultimately decided that she doesn't want to pursue at this time. I think the patient may be a good candidate for neuromodulation, as their pain has been refractory to conservative, pharmacologic, interventional, and surgical approaches. Although the patient has a history of SCS explant, I think they are a good candidate for SCS therapy considering their pain pattern has changed following the most recent surgery (schwannoma removal). The patient has experienced intermittent bowel/bladder changes since their last lumbar surgery, for which they have been evaluated by neurosurgery. I again advised the patient to go to the ER if they experience new or worsening symptoms, such as saddle anesthesia or weakness. The patient presents to the clinic today to follow up post-imaging. The patient primarily complains of low back and right buttock/hip pain with intermittent radicular symptoms of the BLE. Based on the history and physical exam it appears that the pain is multifactorial in origin, including failed lumbar syndrome with lumbar degenerative disc disease/lumbar spondylosis. I was suspicious of an underlying hip and/or SI joint disease process, but I think the clinical presentation is more consistent with a lumbar mechanism. The patient also complains of left foot pain, noting a history of left foot trauma. I have reviewed the left foot/ankle x-ray, which revealed plantar and achilles insertional calcaneal spurs with soft tissue swelling. I think much of the LLE pain is explained by lumbar radiculopathy. The patient has attempted to make lifestyle modifications, but pain continues to impede performing ADLs, thereby negatively affecting quality of life. After a detailed discussion of treatment modalities and the respective risks/benefits, I will proceed with scheduling a caudal epidural. The patient previously received significant benefit from the procedure. I will follow up 2 weeks post-injection. -- I counseled the patient extensively and informed of the risks of the procedure, including the risk of paralysis, nerve damage, respiratory arrest, arrhythmias, stroke, weakness, and infection, which although very low, could result in or disability. The patient acknowledged to me that they understand and accept these risks. RN EDUCATION Extensive coordination of care provided by RN to educate patient on upcoming procedure and to coordinate obtaining extensive incoming medical records. I have discussed in great detail our potential treatment options which would include a rehabilitative approach to care. This program would include medication management, Physical Therapy, consideration for interventional procedures as appropriate, and lifestyle modification (diet, weight loss, exercise, smoking/tobacco cessation, holistic approach including meditation and yoga). The patient understands and agrees prior to proceeding with this plan. _ __ __ __ __ __ __ __ __ __ __ __ __ __ __ __ __ __ __ __ __ __ __ __ __ __ __ __ _ RECORDS REVIEW: As per clinic policy, we will have the patient sign a release to obtain previous imaging and clinical notes. _ __ __ __ __ __ __ __ __ __ __ __ __ __ __ __ __ __ __ __ __ __ __ __ __ __ __ __ _ PSYCH: Pain affecting Neuro-psych behavior was discussed. Discussed about pain psychological counseling as a part of the multimodal approach to pain treatment. _ __ __ __ __ __ __ __ __ __ __ __ __ __ __ __ __ __ __ __ __ __ __ __ __ __ __ __ _ REHABILITATION: Discussed with the patient the importance of diet, daily physical activity and PT. Discussed with the patient the need to be scheduled for physical therapy since physical therapy will prolong the benefits of the procedure and interventions. _ __ __ __ __ __ __ __ __ __ __ __ __ __ __ __ __ __ __ __ __ __ __ __ __ __ __ __ _ GENE: [id number] I have reviewed patient's GENE report prior to prescribing Schedule II, III, and IV medications that require review by law. [email or web address] Not available 01/16/2023 13:41:06 02/20/2023 02/20/2023 The patient is a 67 year old female referred by Dr. Lane Villalba for chronic pain management. The patient has a history of multiple spinal surgeries, including a schwannoma removal (2019). The patient also has a history of SCS explant (initial implant in 2014 and explant in 2019). The patient was following with Dr. Cabello, whom is apparently not practicing at the location anymore. Patient presents today 2 weeks s/p caudal epidural injection. She reports greater than 80% improved pain and function with the procedure. She has had prior TFESI right L5 and S1 which helped her RLE symptoms short term. Patient reports the caudal epidural was more effective in improving her pain and function overall including the RLE and LLE. She has also had prior R GTB injections successful short term. Pain today is 3/10. Based on the history and physical exam it appears that the pain is multifactorial in origin, including failed lumbar syndrome with lumbar degenerative disc disease/lumbar spondylosis. The patient is scheduled to see podiatry for her left foot pain. Since she has had significant relief from the caudal epidural and she is happy with her pain at this time, she will f/up in 2 months to reassess pain. Return sooner if needed. From previous visit: The patient has contemplated pursuing SCS therapy again, but ultimately decided that she doesn't want to pursue at this time. I think the patient may be a good candidate for neuromodulation, as their pain has been refractory to conservative, pharmacologic, interventional, and surgical approaches. Although the patient has a history of SCS explant, I think they are a good candidate for SCS therapy considering their pain pattern has changed following the most recent surgery (schwannoma removal). The patient has experienced intermittent bowel/bladder changes since their last lumbar surgery, for which they have been evaluated by neurosurgery. I again advised the patient to go to the ER if they experience new or worsening symptoms, such as saddle anesthesia or weakness. -- I counseled the patient extensively and informed of the risks of the procedure, including the risk of paralysis, nerve damage, respiratory arrest, arrhythmias, stroke, weakness, and infection, which although very low, could result in or disability. The patient acknowledged to me that they understand and accept these risks. RN EDUCATION Extensive coordination of care provided by RN to educate patient on upcoming procedure and to coordinate obtaining extensive incoming medical records. I have discussed in great detail our potential treatment options which would include a rehabilitative approach to care. This program would include medication management, Physical Therapy, consideration for interventional procedures as appropriate, and lifestyle modification (diet, weight loss, exercise, smoking/tobacco cessation, holistic approach including meditation and yoga). The patient understands and agrees prior to proceeding with this plan. _ __ __ __ __ __ __ __ __ __ __ __ __ __ __ __ __ __ __ __ __ __ __ __ __ __ __ __ _ RECORDS REVIEW: As per clinic policy, we will have the patient sign a release to obtain previous imaging and clinical notes. _ __ __ __ __ __ __ __ __ __ __ __ __ __ __ __ __ __ __ __ __ __ __ __ __ __ __ __ _ PSYCH: Pain affecting Neuro-psych behavior was discussed. Discussed about pain psychological counseling as a part of the multimodal approach to pain treatment. _ __ __ __ __ __ __ __ __ __ __ __ __ __ __ __ __ __ __ __ __ __ __ __ __ __ __ __ _ REHABILITATION: Discussed with the patient the importance of diet, daily physical activity and PT. Discussed with the patient the need to be scheduled for physical therapy since physical therapy will prolong the benefits of the procedure and interventions. _ __ __ __ __ __ __ __ __ __ __ __ __ __ __ __ __ __ __ __ __ __ __ __ __ __ __ __ _ GENE: [id number] I have reviewed patient's GENE report prior to prescribing Schedule II, III, and IV medications that require review by law. [email or web address] Not available 02/21/2023 10:07:27 05/25/2023 05/25/2023 The patient is a 67 year old female referred by Dr. Lane Villalba for chronic pain management. The patient has a history of multiple spinal surgeries, including a schwannoma removal (2019). The patient also has a history of SCS explant (initial implant in 2014 and explant in 2019). The patient was following with Dr. Cabello, whom is apparently not practicing at the location anymore. The patient presents to the clinic today to follow up on pain. The patient is nearly 4 months S/P caudal epidural, which was successful in decreasing pain by greater than 80%. The patient complains of low back pain with radiation down the BLE. Based on the history and physical exam it appears that the pain is multifactorial in origin, including failed lumbar syndrome with lumbar degenerative disc disease/lumbar spondylosis. The patient has attempted to make lifestyle modifications, but pain continues to impede performing ADLs, thereby negatively affecting quality of life. Considering the success of the previous procedure (caudal epidural), I will repeat. It appears that this procedure has been most effective in targeting the pain pattern. The patient also complains left-sided low back and buttock pain described as tightness/spasm. I think this pain is largely stemming from trigger points of the left lumbosacral region secondary to spinal enthesopathy. To address this particular pain, I will proceed with scheduling a TPI of the left lumbosacral region. Of note, the patient previously participated in PT with minimal benefit. I will follow up post-procedures. FROM PRIOR VISIT: The patient has contemplated pursuing SCS therapy again, but ultimately decided that she doesn't want to pursue at this time. I think the patient may be a good candidate for neuromodulation, as their pain has been refractory to conservative, pharmacologic, interventional, and surgical approaches. Although the patient has a history of SCS explant, I think they are a good candidate for SCS therapy considering their pain pattern has changed following the most recent surgery (schwannoma removal). The patient has experienced intermittent bowel/bladder changes since their last lumbar surgery, for which they have been evaluated by neurosurgery. I again advised the patient to go to the ER if they experience new or worsening symptoms, such as saddle anesthesia or weakness. -- I counseled the patient extensively and informed of the risks of the procedure, including the risk of paralysis, nerve damage, respiratory arrest, arrhythmias, stroke, weakness, and infection, which although very low, could result in or disability. The patient acknowledged to me that they understand and accept these risks. RN EDUCATION Extensive coordination of care provided by RN to educate patient on upcoming procedure and to coordinate obtaining extensive incoming medical records. I have discussed in great detail our potential treatment options which would include a rehabilitative approach to care. This program would include medication management, Physical Therapy, consideration for interventional procedures as appropriate, and lifestyle modification (diet, weight loss, exercise, smoking/tobacco cessation, holistic approach including meditation and yoga). The patient understands and agrees prior to proceeding with this plan. _ __ __ __ __ __ __ __ __ __ __ __ __ __ __ __ __ __ __ __ __ __ __ __ __ __ __ __ _ RECORDS REVIEW: As per clinic policy, we will have the patient sign a release to obtain previous imaging and clinical notes. _ __ __ __ __ __ __ __ __ __ __ __ __ __ __ __ __ __ __ __ __ __ __ __ __ __ __ __ _ PSYCH: Pain affecting Neuro-psych behavior was discussed. Discussed about pain psychological counseling as a part of the multimodal approach to pain treatment. _ __ __ __ __ __ __ __ __ __ __ __ __ __ __ __ __ __ __ __ __ __ __ __ __ __ __ __ _ REHABILITATION: Discussed with the patient the importance of diet, daily physical activity and PT. Discussed with the patient the need to be scheduled for physical therapy since physical therapy will prolong the benefits of the procedure and interventions. _ __ __ __ __ __ __ __ __ __ __ __ __ __ __ __ __ __ __ __ __ __ __ __ __ __ __ __ _ GENE: [id number] I have reviewed patient's GENE report prior to prescribing Schedule II, III, and IV medications that require review by law. Not available 05/28/2023 10:23:47 Plan of Treatment Reminders Order Date Submit Date Provider Last Modified By Organization Details Last Modified Time Details Appointments None recorded. Lab None recorded. Referral None recorded. Procedures greater trochanteri c bursa injection (PROC) - 13045, 77853 right trochanteri c bursa 2022 023 [email or web address] Not available 3 15:24:17 injection, single, diagnostic or therapeutic substance, lumbar, sacral (PROC) - Caudal epidural. 16110. 2022 023 [email or web address] [id number] Yuniel Diaz MD, [address], [place], [address], 3 09:08:26 injection, single, diagnostic or therapeutic substance, lumbar, sacral (PROC) - Caudal epidural. 93053. 2023 024 Yuniel Diaz MD, [address], [place], [address], 4 12:08:01 injection, trigger point (PROC) - TPI of the left lumbosacral region. 64693. [address]15. 2023 024 [email or web address] Yuniel Diaz MD, [address], [place], [address], 4 16:17:28 Surgeries None recorded. Imaging XR, hip + pelvis, bilateral - Bilateral hip x-ray 2022 023 [facility], [facility]0 [facility], [place], [address], 3 15:52:55 XR, ankle + foot - Left foot/ankle x-ray 2022 023 [email or web address] [facility], [facility]0 [facility], [place], [address], 3 15:52:55 Medication Orders None recorded. Patient TargetsNo targets recorded. Patient InstructionsNo instructions recorded. Reason for Referral None Reported. Results Created Date Observation Date Name Description Value Unit Range Abnormal Flag Note LastModifiedBy Organization Detail LastModifiedTime 12/23/1912/22/2022 XR, pelvi s [facility] [address] [place] [address] Phone: Fax: Name: GERTRUDIS DALY Exam Date: : 957 Age 66 Gender : F Access ion: [id number] Physic kimberly: LIZZ CARROLL Facili ty: [facility] Facili ty HSV: Outpat ient Exam: PELVIS AP ONLY SINGLE VIEW PELVIS HISTOR Y: Chroni c pelvic pain FINDIN GS: A single view show no eviden ce of an acute, displa luigi fractu re or disloc ation of the visual ized bony trip ecture . There is bilate ral degene rative change of the hips. IMPRES DAYNA: Degene rative change withou t acute bony abnorm ality. Images review ed, interp reted, and dictat ed by Dr. Brian Mccauley . Transc ribed by Margarito Rios PA-C Dictat ed By: Brian Haynes Transc ribed By: Brian Mccauley Transc ribed On: 023 11:50 AM Electr onical ly signed by: Brian Haynes Thank you for referr GERTRUDIS Infante to [facility] al. Legall y authen ticate d by PAULO PITTMAN 12-22 11:50: 50 CC'ed Logic: Orderi ng Provid er: CARLY ZAMUDIO Attend ing Provid er: CARLY ZAMUDIO Admitt ing Provid er: CARROLL LIZZ [email or web address] [facility] [address] [facility], [place], [address], 01/02/2023 12:02:22 12/23/19 23 12/22/2022 XR, hip, unila teral , 1 view [facility] [address] [place] [address] Phone: Fax: Name: GERTRUDIS DALY Exam Date: : 957 Age 66 Gender : F Access ion: [id number] Physic kimberly: LIZZ CARROLL [place]: [place] Fac[place] HSV: Outpat ient Exam: HIP RT 1V SINGLE VIEW RIGHT HIP HISTOR Y: Chroni c right hip pain FINDIN GS: A single view shows no eviden ce of an acute, displa luigi fractu re or disloc ation of the visual ized bony trip ecture . The joint spaces demons trate degene rative change s. IMPRES DAYNA: Degene rative change s withou t acute bony abnorm ality. Images review ed, interp reted, and dictat ed by Dr. Brian Mccauley . Transc ribed by Margarito Rios PA-C Dictat ed By: Brian Haynes Transc ribed By: Brian Mccauley Transc ribed On: 11:57 AM Electr onical ly signed by: Brian Haynes Thank you for referr GERTRUDIS Infante to [facility] al. Legall y authen tickiran d by PAULO PITTMAN 12-22 11:57: 48 CC'ed Logic: Orderi ng Provid er: CARLY ZAMUDIO Attend ing Provid er: CARLY LIZZ Admitt ing Provid er: CARLY ZAMUDIO [email or web address] [facility] [address] [facility], [place], [address], 01/02/2023 12:02:23 12/23/19 23 12/22/2022 [facility] unila [facility]eral [facility] [address] [place] [address] Phone: Fax: Name: GERTRUDIS DALY Exam Date: : 957 Age 66 Gender : F Access ion: [id number] Physic kimberly: LIZZ CARROLL Facili ty: [facility] Facili ty HSV: Outpat ient Exam: HIP LT 1V SINGLE VIEW, LEFT HIP HISTOR Y: Acute left hip pain FINDIN GS: A single view shows no eviden ce of an acute, displa luigi fractu re or disloc ation of the visual ized bony trip ecture . The joint spaces demons trate degene rative change . IMPRES DAYNA: Degene rative change withou t acute bony of neurol ogy. Images review ed, interp reted, and dictat ed by Dr. Brian Mccauley . Transc ribed by Margarito Rios PA-C Dictat ed By: Brian Haynes Transc ribed By: Biran Mccauley Transc ribed On: 11:58 AM Electr onical ly signed by: Brian Haynes 023 Thank you for referr GERTRUDIS Infante to [facility]. Legall y authen ticate d by PAULO PITTMAN 12-22 11:58: 58 CC'ed Logic: Orderi ng Provid er: CARLY ZAMUDIO Attend ing Provid er: CARLY Mcclure ing Provid er: CARLY ZAMUDIO [email or web address] [facility] [address] [facility], [place], [address], 01/02/2023 12:02:23 12/23/19 23 12/22/2022 XR, foot, 3 or more view [facility] [address] [place] [address] Phone: Fax: Name: GERTRUDIS DALY Exam Date: : 957 Age 66 Gender : F Access ion: [id number] Physic kimberly: LIZZ CARROLL ty: [facility] Facili ty HSV: Outpat ient Exam: FOOT LT 3V LEFT FOOT, THREE VIEW HISTOR Y: Chroni c left foot pain FINDIN GS: Three views show no eviden ce of an acute, displa luigi fractu re or disloc ation of the visual ized bony trip ecture . There is a planta r and Achill es insert ional calcan eal spurs. There is soft tissue swelli ng. The bones are osteop enic. The joint spaces appear unrema rkable . IMPRES DAYNA: No acute bony abnorm ality. Images review ed, interp reted, and dictat ed by Dr. Brian Mccauley . Transc ribed by Margarito Rios PA-C Dictat ed By: Brian Haynes Transc ribed By: Brian Mccauley Transc ribed On: 023 12:02 PM Electr onical ly signed by: Brian Haynes 023 Thank you for referr GERTRUDIS Infante to [facility]. Legall y authen ticate d by PAULO PITTMAN 12-22 12:02: 57 CC'ed Logic: Orderi ng Provid er: CARLY ZAMUDIO Attend ing Provid er: CARLY ZAMUDIO Admitt ing Provid er: CARLY ZAMUDIO [email or web address] [facility] [address] [place] [address], [place], [address], 01/02/2023 12:02:23 12/23/19 23 12/22/2022 XR, ankle , 3 or more view [facility] [address] [facility] [place] [address] Phone: Fax: Name: GERTRUDIS DALY Exam Date: 023 : 957 Age 66 Gender : F Access ion: [id number] Physic kimberly: LIZZ CARROLL Facili ty: [facility] Facili ty HSV: Outpat ient Exam: ANKLE 3V LT LEFT ANKLE, THREE VIEW HISTOR Y: Chroni c left ankle pain FINDIN GS: Three views show no eviden ce of an acute, displa luigi fractu re or disloc ation of the visual ized bony trip ecture . There is a planta r and Achill es insert ional calcan eal spurs. There is soft tissue swelli ng. The bones are osteop enic. The joint spaces appear unrema rkable . IMPRES DAYNA: No acute bony abnorm ality. Images review ed, interp reted, and dictat ed by Dr. Brian Mccauley . Transc ribed by Margarito Rios PA-C Dictat ed By: Brian Haynes Transc ribed By: Brian Mccauley Transc ribed On: 023 12:03 PM Electr onical ly signed by: Brian Haynes 023 Thank you for referr ing GERTRUDIS DALY to [facility]. Legall y authen ticate d by PAULO PITTMAN 0 12-22 12:03: 33 CC'ed Logic: Orderi ng Provid er: CARLY ZAMUDIO Attend ing Provid er: CARLY ZAMUDIO Admitt ing Provid er: CARLY ZAMUDIO [email or web address] [facility] [address] [facility], [place], [address], 01/02/2023 12:02:24 Result Notes None recorded. Problems Name Problem SNOMED Code Status Onset Date Resolution Date Notes Provider Name and Address Organization Details Recorded Time Piriformis syndrome 029739150 Active 2021 Vy Calhoun null, [place] - [facility] - [place] & [place] 2 11:51:02 Myofascial pain 354333875 Active 2021 Vy Calhoun [place] [facility] [place] 2 11:51:10 Spinal stenosis of lumbar region 38726385 Active 2021 Vy Calhoun [place] [facility] [place] 2 11:51:26 Bilateral hip joint pain 7168294571264 9100 Active 2021 Vy Calhoun [place] [facility] [place] 2 11:51:40 Bilateral trochanteri c bursitis 1146533194421 9109 Active 2021 Vy Calhoun [place] [facility] [place] 2 11:51:54 Piriformis syndrome 399213908 Active 2021 marylin haile null, [place] - [facility] [place] 2 09:27:40 Meralgia paresthetic a 51397496 Active 2021 Aditi Hirsch [place] - [facility] [place] 2 11:56:26 Ilioinguina l nerve neuritis 424495734 Active 2021 Vy Calhoun [place] [facility] [place] 2 12:45:32 Radiculitis due to rupture of lumbar interverteb ral disc 5060560254 Active 2022 Vy Calhoun [place] - [facility] [place] 3 14:24:46 Lumbar post-saida ctomy syndrome 143273312 Active 2022 Vy Campakins null[place] - [facility] [place] 3 09:17:06 Pain in right hip joint 7108057632055 02 Active 2022 Vy Calhoun null[place] - [facility] [place] 3 11:11:08 Pain in left foot 0456983798803 07 Active 2022 Vy donnelly AIMEE - [facility] & [place] 11:11:10 Problem Notes None recorded. Procedures Surgical History Date Name Laterality Status Provider Name and Address Organization Details Recorded Time 2 Injection Only completed Vy YU - [facility] & [place] 03/01/2022 12:53:33 hysterectomy completed Vy YU - [facility] & [place] 01/04/2022 11:54:35 Imaging Results Imaging Date Name Status LastModified by Organiz ation Details LastModified Time 12/22/2022 XR, pelvis completed [address] [facility] [address], [place], [address], 01/02/2023 12:02:22 12/22/2022 XR, hip, unilateral, 1 view completed [address] [place], [address], 01/02/2023 12:02:23 12/22/2022 XR, hip, unilateral, 1 view completed [address] [place], [address], 01/02/2023 12:02:23 12/22/2022 XR, foot, 3 or more view completed [address] Physical [facility] [address] [place], [address], 01/02/2023 12:02:23 12/22/2022 XR, ankle, 3 or more view completed [address] [facility] [address] [place], [address], 01/02/2023 12:02:24 Procedure Notes None recorded. Medical Equipment None Reported. Allergies Allergen ID Allergen Name Allergen Category Reaction Reaction Severity Criticality Documentation Date Start Date Code Code System Note Provider Name and Address Organization Details Recorded Time 15166 metformin medicatio n Not available Not available Not available 01/02/2022 6809 RxNorm Vy donnelly, AIMEE - [facility] - [place] & [place] 2 16:18:27 Medications Name Sig Start Date Stop Date Status Note LastModified by Organization Details LastModified Time amoxicillin 500 mg capsule TAKE 1 CAPSULE BY MOUTH THREE TIMES DAILY FOR 10 DAYS 05/25 completed Not Available Not Available Not Available atorvastati n 40 mg tablet active Not Available Not Available Not Available Colace 100 mg capsule Take 1 capsule every day by oral route as directed for 30 days. active Not Available Not Available No t Available ropinirole 1 mg tablet Take 1 tablet every day by oral route as directed for 30 days. active Not Available Not Available No t Available donepezil 5 mg tablet active Not Available Not Available No t Available trazodone 50 mg tablet Take 1 tablet every day by oral route as directed for 30 days. active Not Available Not Available No t Available azithromyci n 250 mg tablet TAKE 2 TABLETS BY MOUTH ON DAY 1, AND THEN TAKE 1 TABLET BY MOUTH ONCE A DAY ON DAY 2 THROUGH DAY 5 11/14 completed Not Available Not Available Not Available hydrocodone 5 mg-acetamin ophen 325 mg tablet TAKE 1 TABLET BY MOUTH EVERY 4 TO 6 HOURS NEEDED FOR PAIN active Not Available Not Available No t Available Lantus U-100 Insulin 100 unit/mL subcutaneou s solution Inject 30 units every day by subcutane ous route as directed for 30 days. 10/10 completed Not Available Not Available Not Available Zyrtec 10 mg tablet Take 1 tablet every day by oral route as needed for 30 days. active Not Available Not Available No t Available ciprofloxac in 500 mg tablet 10/10 completed Not Available Not Available Not Available omeprazole 40 mg capsule,del ayed release Take 1 capsule every day by oral route as directed for 30 days. active Not Available Not Available No t Available tramadol 50 mg tablet Take 1 tablet every 8 hours by oral route for 30 days. active Not Available Not Available No t Available ketorolac 30 mg/mL (1 mL) injection solution Inject 1 mL by intramusc ular route. 2021 active Not Available Not Available Not Avai lable bisoprolol fumarate 5 mg tablet Take 1 tablet every day by oral route as directed for 30 days. 01/05 completed Not Available Not Available Not Available meloxicam 7.5 mg tablet Take 1 tablet every day by oral route as directed for 30 days. active Not Available Not Available No t Available pravastatin 10 mg tablet Take 1 tablet every day by oral route as directed for 30 days. 02/20 completed Not Available Not Available Not Available nifedipine ER 90 mg tablet,exte nded release 24 hr active Not Available Not Available Not Available benzonatate 100 mg capsule TAKE 1 CAPSULE BY MOUTH TWICE DAILY NEEDED FOR COUGH 10/10 completed Not Available Not Available Not Available bethanechol chloride 50 mg tablet Take 1 tablet 3 times a day by oral route with meals for 30 days. active Not Available Not Available No t Available cefuroxime axetil 500 mg tablet TAKE 1 TABLET BY MOUTH EVERY 12 HOURS FOR 10 DAYS active Not Available Not Available No t Available methylpredn isolone 4 mg tablets in a dose pack TAKE BY MOUTH DIRECTED ON INSIDE OF PACKAGE 12/22 completed Not Available Not Available Not Available nifedipine ER 60 mg tablet,exte nded release Take 1 tablet every day by oral route as directed for 30 days. active Not Available Not Available No t Available cefdinir 300 mg capsule TAKE 1 CAPSULE BY MOUTH TWICE DAILY FOR 7 DAYS 05/18 completed Not Available Not Available Not Available losartan 100 mg tablet active Not Available Not Available Not Available metformin ER 500 mg tablet,exte nded release 24 hr TAKE 2 TABLETS BY MOUTH ONCE DAILY WITH BREAKFAST active Not Available Not Available No t Available diazepam 5 mg tablet TAKE 1 TABLET BY MOUTH 30 MINUTES PRIOR TO MRI. MAY REPEAT DOSE IF NEEDED 01/05 completed Not Available Not Available Not Available ezetimibe 10 mg tablet active Not Available Not Available Not Available topiramate 50 mg tablet Take 1 tablet twice a day by oral route as directed for 30 days. active Not Available Not Available No t Available duloxetine 30 mg capsule,del ayed release Take 1 capsule every day by oral route for 15 days. 12/22 completed Not Available Not Available Not Available chlorhexidi ne gluconate 0.12 % mouthwash RINSE WITH 15ML FOR 30 SECONDS AND SPIT, USE TWICE DAILY active Not Available Not Available No t Available Januvia 100 mg tablet Take 1 tablet every day by oral route as directed for 30 days. 05/18 completed Not Available Not Available Not Available peg 3350-electr olytes 236 gram-22.74 gram-6.74 gram-5.86 gram solution TAKE 2000 ML BY MOUTH EVERY DAY DIRECTED FOR 2 DAYS active Not Available Not Available No t Available Lantus Solostar U-100 Insulin 100 unit/mL (3 mL) subcutaneou s pen active Not Available Not Available Not Available Humalog KwikPen (U-100) Insulin 100 unit/mL subcutaneou s Inject 16 units every day by subcutane ous route before meals for 30 days. active Not Available Not Available No t Available desvenlafax ine succinate ER 50 mg tablet,exte nded release 24 hr active Not Available Not Available Not Available sodium,pota ssium,mag sulfates 17.5 gram-3.13 gram-1.6 gram oral soln Take by oral route for 2 days. active Not Available Not Available No t Available domperidone 10 mg tablet Take 1 tablet every 8 hours by oral route as directed for 30 days. active Not Available Not Available No t Available Janumet XR 100 mg-1,000 mg tablet,exte nded release 10/10 completed Not Available Not Available Not Available Linzess 145 mcg capsule 01/15 completed Not Available Not Available Not Available Movantik 25 mg tablet active Not Available Not Available No t Available Trulance 3 mg tablet active Not Available Not Available No t Available Ozempic 1 mg/dose (4 mg/3 mL) subcutaneou s pen injector active Not Available Not Available Not Available Ozempic 0.25 mg or 0.5 mg (2 mg/3 mL) subcutaneou s pen injector INJECT 0.25MG SUBCUTANE OUSLY ONCE A WEEKLY FOR 4 WEEKS, THEN INCREASE TO 0.5MG WEEKLY 02/20 completed Not Available Not Available Not Available Vitals Date Recorded Body height Body mass index (BMI) Body weight Body temperature Oxygen saturation Oxygen saturation in Arterial blood by Pulse oximetry Heart rate Systolic blood pressure Diastolic blood pressure Provider Name and Address Organization Details Last Updated DateTime 3 157.48 cm 34.2 kg/m2 56915.4 9 g 97.9 [degF] 96 % 96 % 99 /min 174 mm[Hg] 78 mm[Hg] Vy YU - [place] - [place] [facility] [place] 3 09:42:25 Date Recorded Body height Body mass index (BMI) Body weight Body temperature Oxygen saturation Oxygen saturation in Arterial blood by Pulse oximetry Heart rate Systolic blood pressure Diastolic blood pressure Provider Name and Address Organization Details Last Updated DateTime 3 157.48 cm 33.5 kg/m2 23056.1 2 g 97.1 [degF] 94 % 94 % 94 /min 169 mm[Hg] 77 mm[Hg] [facility] 3 10:09:42 Date Recorded Body height Body mass index (BMI) Body weight Body temperature Oxygen saturation Oxygen saturation in Arterial blood by Pulse oximetry Heart rate Systolic blood pressure Diastolic blood pressure Provider Name and Address Organization Details Last Updated DateTime 3 157.48 cm 33.5 kg/m2 52831.1 2 g 97.8 [degF] 94 % 94 % 84 /min 141 mm[Hg] 73 mm[Hg] [facility] & [place] 3 10:51:12 Date Recorded Body height Body mass index (BMI) Body weight Body temperature Oxygen saturation Oxygen saturation in Arterial blood by Pulse oximetry Heart rate Systolic blood pressure Diastolic blood pressure Provider Name and Address Organization Details Last Updated DateTime 3 157.48 cm 32.9 kg/m2 76187.6 3 g 97.2 [degF] 95 % 95 % 96 /min 149 mm[Hg] 72 mm[Hg] [facility] & [place] 3 12:32:07 Date Recorded Body height Body mass index (BMI) Body weight Body temperature Oxygen saturation Oxygen saturation in Arterial blood by Pulse oximetry Heart rate Systolic blood pressure Diastolic blood pressure Provider Name and Address Organization Details Last Updated DateTime 4 157.48 cm 36.1 kg/m2 90126.8 5 g 97.4 [degF] 93 % 93 % 94 /min 150 mm[Hg] 80 mm[Hg] [facility] & [place] 4 08:30:50 Social History None recorded. Functional Status None recorded. Mental Status None recorded. Family History Relationship Description Onset Age of this Age Resolved Age Notes LastModified by Organization Details LastModified Time Mother Diabetes mellitus [email or web address] Not available 01/04 11:53:09 Mother Mother carlos eduardo Not available 01/04 11:53:38 Father Father carlos eduardo Not available 01/04 11:53:28 Medical History Condition Response Coronary Artery Disease N Gout N Head Trauma/Injury N Hernia N Thyroid Problems N Depression Y COPD N Anemia N Ulcers N Heart Attack ([place]) N Diabetes Y Anxiety Disorder Y Bleeding Disorder N Arthritis N Tuberculosis N AIDS/HIV N Acid Reflux (GERD) N Cancer N Stroke N Asthma N Substance Abuse N Back Injury N High Cholesterol Y Hepatitis N Liver Disease N Heart Disease N Fibromyalgia N Headaches N Hypertension Y Osteoporosis N Kidney Disease N Gynecological HistoryNo gynecological history recorded. Obstetrics History GPAL:G 0 P 0 0 0 0 Past Encounters Encounter ID Performer Location Encounter Start Date Encounter Closed Date Diagnosis/Indication Diagnosis SNOMED-CT Code Diagnosis ICD10 Code [id number] Yuniel Diaz MD [facility] [address] [place] [id number] 4 01/05/2022 13:03:21 01/05/2022 13:37:54 Myofascial pain 478395923 M79.10 Piriformis syndrome 1291 53486 G57.03 Spinal sj nosis of lumbar region 24196676 M99.53 M48.061 Bilateral hip joint pain 7206268682 6735127 M25.551 M25.552 Bilateral trochanteric bursitis 0324792141 7233067 M70.61 M70.62 [id number] LIZZ CARROLL PA-C [facility] [address] [address] 4 02/09/2022 10:57:38 02/09/2022 11:46:18 Myofascial pain 076315213 M79.10 Piriformis syndrome 1291 71988 G57.03 Spinal sj nosis of lumbar region 24786571 M99.53 M48.061 Bilateral hip joint pain 4809457997 8284385 M25.551 M25.552 Bilateral trochanteric bursitis 9539723524 2570006 M70.61 M70.62 Meralgia paresthetica 85 775834 G57.11 [id number] Yuniel Diaz MD [facility] [address] [address] 03/01/2022 08:08:52 03/01/2022 08:47:55 Meralgia paresthetica 52463491 G57.11 Ilioinguin al nerve neuritis 408887957 G57.81 [id number] Yuniel Diaz MD [facility] [address] [address] 03/16/2022 09:37:19 03/16/2022 10:41:07 Myofascial pain 919019561 M79.10 Piriformis syndrome 1291 60491 G57.03 Spinal sj nosis of lumbar region 13870987 M99.53 M48.061 Bilateral hip joint pain 0887053654 6312097 M25.551 M25.552 Bilateral trochanteric bursitis 8867702764 3211375 M70.61 M70.62 Meralgia paresthetica 85 135364 G57.11 Radiculiti s due to rupture of lumbar intervertebral disc 3055209390 M51.16 [id number] Yuniel Diaz MD [facility] [address] [address] 4 05/18/2022 13:56:21 05/18/2022 15:37:22 Myofascial pain 907537482 M79.10 Piriformis syndrome 1291 06150 G57.03 Radiculiti s due to rupture of lumbar intervertebral disc 6431242160 M51.16 Spinal sj nosis of lumbar region 97344128 M99.53 M48.061 Bilateral hip joint pain 1039394822 7018957 M25.551 M25.552 Bilateral trochanteric bursitis 4248093656 6340674 M70.61 M70.62 Meralgia paresthetica 85 194896 G57.11 Lumbar post-laminectomy syndrome 654725924 M96.1 [id number] Yuniel Diaz MD [facility] [address] [address] 4 10/10/2022 14:48:07 10/10/2022 15:41:02 Myofascial pain 166922848 M79.10 Piriformis syndrome 1291 73364 G57.03 Radiculiti s due to rupture of lumbar intervertebral disc 3789521004 M51.16 Spinal sj nosis of lumbar region 99941185 M99.53 M48.061 Bilateral hip joint pain 6790567909 8510305 M25.551 M25.552 Bilateral trochanteric bursitis 1839145600 0719469 M70.61 M70.62 Meralgia paresthetica 85 866820 G57.11 Lumbar post-laminectomy syndrome 137351731 M96.1 [id number] DAHLIA STEARNS [facility] [address] [place] [address] 11/14/2022 09:25:21 11/14/2022 11:29:44 Myofascial pain 068445459 M79.10 Piriformis syndrome 1291 13365 G57.03 Radiculiti s due to rupture of lumbar intervertebral disc 9725594697 M51.16 Spinal sj nosis of lumbar region 84024650 M99.53 M48.061 Bilateral hip joint pain 7150707412 4186560 M25.551 M25.552 Bilateral trochanteric bursitis 2987651059 9645596 M70.61 M70.62 Meralgia paresthetica 85 907461 G57.11 Lumbar post-laminectomy syndrome 063059041 M96.1 [id number] LIZZ CARROLL PA-C [facility] [address] [place] [id number] 4 12/22/2022 09:58:16 12/22/2022 10:28:45 Myofascial pain 872427140 M79.10 Piriformis syndrome 1291 20922 G57.03 Radiculiti s due to rupture of lumbar intervertebral disc 4215360058 M51.16 Spinal sj nosis of lumbar region 81756482 M99.53 M48.061 Bilateral hip joint pain 8085449581 4215269 M25.551 M25.552 Bilateral trochanteric bursitis 6327140594 6827772 M70.61 M70.62 Meralgia paresthetica 85 568833 G57.11 Lumbar post-laminectomy syndrome 219614717 M96.1 Pain in ri ght hip joint 5600199469 02386 M25.551 Pain in left foot 159372 7865 43624 M79.672 [id number] LIZZ CARROLL PA-C [facility] [address] [address] 4 01/15/2023 10:38:58 01/15/2023 11:45:30 Myofascial pain 472247960 M79.10 Piriformis syndrome 1291 41086 G57.03 Radiculiti s due to rupture of lumbar intervertebral disc 9040345315 M51.16 Spinal sj nosis of lumbar region 30937258 M99.53 M48.061 Bilateral hip joint pain 8815497951 0735388 M25.551 M25.552 Bilateral trochanteric bursitis 7420786896 7242036 M70.61 M70.62 Meralgia paresthetica 85 255428 G57.11 Lumbar post-laminectomy syndrome 466840366 M96.1 Pain in ri ght hip joint 6528734297 85854 M25.551 Pain in left foot 595218 5014 76593 M79.672 [id number] DAHLIA STEARNS [facility] [address] [address] 02/20/2023 11:10:19 02/20/2023 11:33:52 Myofascial pain 044161043 M79.10 Piriformis syndrome 1291 68482 G57.03 Radiculiti s due to rupture of lumbar intervertebral disc 8690141121 M51.16 Spinal sj nosis of lumbar region 28359281 M99.53 M48.061 Bilateral hip joint pain 8331890299 9444587 M25.551 M25.552 Bilateral trochanteric bursitis 1233388807 2271167 M70.61 M70.62 Meralgia paresthetica 85 542940 G57.11 Lumbar post-laminectomy syndrome 140594475 M96.1 Pain in ri ght hip joint 6890772828 95778 M25.551 Pain in left foot 254666 9621 19933 M79.672 [id number] LIZZ CARROLL PA-C [facility] [address] [facility] [address] [place] [address] 05/25/2023 08:05:48 05/25/2023 09:10:23 Myofascial pain 214969920 M79.10 Piriformis syndrome 1291 13137 G57.03 Radiculiti s due to rupture of lumbar intervertebral disc 1313341767 M51.16 Spinal sj nosis of lumbar region 34211293 M99.53 M48.061 Bilateral hip joint pain 5004890342 7506071 M25.551 M25.552 Bilateral trochanteric bursitis 3873224022 6448902 M70.61 M70.62 Meralgia paresthetica 85 519336 G57.11 Lumbar post-laminectomy syndrome 172951864 M96.1 Pain in ri ght hip joint 8223065155 85226 M25.551 Pain in left foot 061198 6582 03660 M79.672 Spinal ent hesopathy of lumbosacral region 2463509156 48428 M46.07 Health Concerns Section Related Observation LastModified by Organization Detai ls LastModified Time None Recorded Concern Status LastModified by Organization Details LastModified Time None Recorded Advance Directives Directive None Recorded Payers Encounter Date Sequence Insurance Name Policy Number Policy Cannon Covered Member ID Cannon Member ID Guarantor Name 11/14/2022 1 [facility] (MEDICARE REPLACEMENT/A DVANTAGE - PPO) [id number] Gertrudis Daly [id number] Gertrudis Daly 12/22/2022 1 [facility] (MEDICARE REPLACEMENT/A DVANTAGE - PPO) [id number] Gertrudis Daly [id number] Gertrudis Daly 01/15/2023 1 [facility] (MEDICARE REPLACEMENT/A DVANTAGE - PPO) [id number] Gertrudis Daly [id number] Gertrudis Daly 02/20/2023 1 [facility] (MEDICARE REPLACEMENT/A DVANTAGE - PPO) [id number] Gertrudis Daly [id number] Gertrudis Daly 05/25/2023 1 [facility] (MEDICARE REPLACEMENT/A DVANTAGE - PPO) [id number] Gertrudis Daly [id number] Gertrudis Daly Notes Date Note Type Note Provider Name and Address Organization Details Recorded Time 11/14/2022 text/html The patient is a 66 year old female referred by Dr. Lane Villalba for chronic pain management. The patient has a history of multiple spinal surgeries, including a schwannoma removal (2019). The patient also has a history of SCS explant x2 (initial implant in 2014 and explant in 2019). The patient was following with Dr. Cabello, whom is apparently not practicing at the location anymore. Patient presents today 2 week s/p TFESI right L5 and S1. She reports significantly improved back pain >50% with resolved RLE radicular pain. She reports returned right troch bursitis. She has had prior right GTB injection in 12/22 with resolved pain for months. She continues tramadol 50 mg as prescribed by Dr. Davis. Pain today is 08/09 Patient is still not interested in pursuing SCS therapy at this time. _ __ __ __ __ __ __ __ __ __ __ __ __ __ __ __ __ __ __ __ __ __ __ __ __ __ __ __ _*Onset: Chronic*Context: Worsening*Character : Sharp/ache, tightness/spasm, and numbness/tingling.* Location: Low back/buttock and BLE*Duration: Constant with fluctuations*Intens ity: 05/12*Worse: N/A*Better: N/A*Associated symptoms: Denies saddle anaesthesia, denies acute bowel/bladder changes, denies acute power loss.*ADLs: The patient's pain interferes with daily chores, exercise, sleep, relationships, and walking.*Current Pain Medications: Tramadol*Prior Pain Medications: N/A*NSAIDS/OTC: None*Non-interventi onal Tx: None*Physical Therapy: None*Interventional Tx: Multiple*Surgery: Multiple*Imaging/St udies: Lumbar MRI. DAHLIA STEARNS [address], [place], [address], [facility] - [facility] - [place] 11/20/2022 14:25:52 12/22/2022 text/html The patient is a 67 year old female referred by Dr. Lane Villalba for chronic pain management. The patient has a history of multiple spinal surgeries, including a schwannoma removal (2019). The patient also has a history of SCS explant x2 (initial implant in 2014 and explant in 2019). The patient was following with Dr. Cabello, whom is apparently not practicing at the location anymore. The patient presents to the clinic today 3 weeks S/P right GTB injection. The patient reports experiencing significant improvement in pain and function of nearly 100% in the short-term (approximately 1 day). The patient continues to complain of right hip pain. The patient also complains of left foot pain, noting a history of left foot trauma. Today the pain level is a 08/09._ __ __ __ __ __ __ __ __ __ __ __ __ __ __ __ __ __ __ __ __ __ __ __ __ __ __ __ _*Onset: Chronic*Context: Worsening*Character : Sharp/ache, tightness/spasm, and numbness/tingling.* Location: Low back/buttock and BLE*Duration: Constant with fluctuations*Intens ity: 05/12*Worse: N/A*Better: N/A*Associated symptoms: Denies saddle anaesthesia, denies acute bowel/bladder changes, denies acute power loss.*ADLs: The patient's pain interferes with daily chores, exercise, sleep, relationships, and walking.*Current Pain Medications: Tramadol*Prior Pain Medications: N/A*NSAIDS/OTC: None*Non-interventi onal Tx: None*Physical Therapy: None*Interventional Tx: Multiple*Surgery: Multiple*Imaging/St udies: Lumbar MRI. LIZZ CARROLL PA-C [address], [place], [address], [place] 12/25/2022 06:15:50 01/15/2023 text/html The patient is a 67 year old female referred by Dr. Lane Villalba for chronic pain management. The patient has a history of multiple spinal surgeries, including a schwannoma removal (2019). The patient also has a history of SCS explant (initial implant in 2014 and explant in 2019). The patient was following with Dr. Cabello, whom is apparently not practicing at the location anymore. The patient presents to the clinic today to follow up post-imaging. The patient primarily complains of low back and right buttock/hip pain with intermittent radicular symptoms of the BLE. The patient also complains of left foot pain, noting a history of left foot trauma. Today the pain level is a 09/09._ __ __ __ __ __ __ __ __ __ __ __ __ __ __ __ __ __ __ __ __ __ __ __ __ __ __ __ _*Onset: Chronic*Context: Worsening*Character : Sharp/ache, tightness/spasm, and numbness/tingling.* Location: Low back/buttock and BLE*Duration: Constant with fluctuations*Intens ity: 05/12*Worse: N/A*Better: N/A*Associated symptoms: Denies saddle anaesthesia, denies acute bowel/bladder changes, denies acute power loss.*ADLs: The patient's pain interferes with daily chores, exercise, sleep, relationships, and walking.*Current Pain Medications: Tramadol*Prior Pain Medications: N/A*NSAIDS/OTC: None*Non-interventi onal Tx: None*Physical Therapy: None*Interventional Tx: Multiple*Surgery: Multiple*Imaging/St udies: Lumbar MRI. LIZZ CARROLL PA-C [address] [facility] [address], [place], [address], [facility] - [place] - [place] 01/16/2023 13:42:15 02/20/2023 text/html The patient is a 67 year old female referred by Dr. Lane Villalba for chronic pain management. The patient has a history of multiple spinal surgeries, including a schwannoma removal (2019). The patient also has a history of SCS explant (initial implant in 2014 and explant in 2019). The patient was following with Dr. Cabello, whom is apparently not practicing at the location anymore. Patient presents today 2 weeks s/p caudal epidural injection. She reports greater than 80% improved pain and function with the procedure. She has had prior TFESI right L5 and S1 which helped her RLE symptoms short term. Patient reports the caudal epidural was more effective in improving her pain and function overall including the RLE and LLE. She has also had prior R GTB injections successful short term. Pain today is 3/. _ __ __ __ __ __ __ __ __ __ __ __ __ __ __ __ __ __ __ __ __ __ __ __ __ __ __ __ _*Onset: Chronic*Context: Worsening*Character : Sharp/ache, tightness/spasm, and numbness/tingling.* Location: Low back/buttock and BLE*Duration: Constant with fluctuations*Intens ity: 05/12*Worse: N/A*Better: N/A*Associated symptoms: Denies saddle anaesthesia, denies acute bowel/bladder changes, denies acute power loss.*ADLs: The patient's pain interferes with daily chores, exercise, sleep, relationships, and walking.*Current Pain Medications: Tramadol*Prior Pain Medications: N/A*NSAIDS/OTC: None*Non-interventi onal Tx: None*Physical Therapy: None*Interventional Tx: Multiple*Surgery: Multiple*Imaging/St udies: Lumbar MRI. DAHLIA STEARNS [address] [facility] [address], [place], [address], [facility] - [place] - [place] 02/21/2023 10:07:50 05/25/2023 text/html The patient is a 67 year old female referred by Dr. Lane Villalba for chronic pain management. The patient has a history of multiple spinal surgeries, including a schwannoma removal (2019). The patient also has a history of SCS explant (initial implant in 2014 and explant in 2019). The patient was following with Dr. Cabello, whom is apparently not practicing at the location anymore. The patient presents to the clinic today to follow up on pain. The patient is nearly 4 months S/P caudal epidural, which was successful in decreasing pain by greater than 80%. The patient complains of low back pain with radiation down the BLE. The patient also complains left-sided low back and buttock pain described as tightness/spasm. Today the pain level is a 4/10, but fluctuates higher._ __ __ __ __ __ __ __ __ __ __ __ __ __ __ __ __ __ __ __ __ __ __ __ __ __ __ __ _*Onset: Chronic*Context: Worsening*Character : Sharp/ache, tightness/spasm, and numbness/tingling.* Location: Low back/buttock and BLE*Duration: Constant with fluctuations*Intens ity: 05/12*Worse: N/A*Better: N/A*Associated symptoms: Denies saddle anaesthesia, denies acute bowel/bladder changes, denies acute power loss.*ADLs: The patient's pain interferes with daily chores, exercise, sleep, relationships, and walking.*Current Pain Medications: Tramadol*Prior Pain Medications: N/A*NSAIDS/OTC: None*Non-interventi onal Tx: None*Physical Therapy: None*Interventional Tx: Multiple*Surgery: Multiple*Imaging/St udies: Lumbar MRI. LIZZ CARROLL PA-C [address], [place], [address], [place] [facility] [place] 05/28/2023 10:24:49 OBGyn Episode No OBEpisode recorded.
--- OUTSIDE RECORDS SUMMARY | 2024-02-20 09:22 | XMS_ITS | Encounter Summary ---
Author Organization [employer] Address [address] [place] [address] Care Team Providers Care Corrections Identification Technician Name Role Phone Unavailable Primary Care Provider Unavailabl e Encounter Details Date Type Department Care Team (Late st Contact Info) Description 04/15/2019 Historic Encounter [address] [address] Provider, Luciano Bronson MD Social [...] Procedure Name Priority Date/Time Associated Diagnosis Comments [facility] BASIC METABOLIC PANEL ([facility] BK DATA CONV) Routine 04/15/2019 8:32 AM EST documented in this encounter Results * (ABNORMAL) [facility] BASIC METABOLIC PANEL ([facility] BKR DATA CONV) (04/15/2019 8:32 AM EST) Glucose Level 148(H) 74 - 106 mg/dL 04/15/2019 2:55 PM EST Comment: \.br\[facility] has become aware of sulfasalazine and [...] Urea Nitrogen 16 7 - 22 mg/dL 04/15/2019 2:55 PM EST Creatinine Level 0.70 0.55 - 1.02 mg/dL 04/15/2019 2:55 PM EST Sodium Level 136 136 - 146 mmol/L 04/15/2019 2:55 PM EST Potassium Level 4.0 3.5 - 5.1 mmol/L 04/15/2019 2:55 PM EST Chloride Level 103 102 - 112 mmol/L 04/15/2019 2:55 PM EST Carbon Dioxide Level 29 21 - 32 mmol/L 04/15/2019 2:55 PM EST Anion Gap 8(L) 9 - 20 04/15/2019 2:55 PM EST Calcium Level 9.8 8.4 - 10.1 mg/dL 04/15/2019 2:55 PM EST Bun/Creatinine 22.9(H) 8.0 - 20.0 04/15/2019 2:55 PM EST eGFR NonAfrican >60 >=60 mL/min/1. 73m2 04/15/2019 2:55 PM EST Comment:GFR <60 suggests chr onic kidney disease, if found over 3 month period.\.br\GFR <15 indicates renal failure. eGFR >60 >=60 mL/min/1. 73m2 04/15/2019 2:55 PM EST Comment:GFR <60 suggests chr onic kidney disease, if found over 3 month period.\.br\GFR <15 indicates renal failure. Blood 04/15/2019 8:32 AM EST 04/15/2019 2:31 PM EST [facility] Historical Provider LAB BLOOD ORDERABLES Final Result [facility] [address] [place] [address], [facility] [phone] documented in this encounter Visit Diagnoses Not on filedocumented in this encounter
--- OUTSIDE RECORDS SUMMARY | 2024-02-20 09:22 | XMS_ITS | Encounter Summary ---
Author Organization [employer] Address [address] [place] [address] Care Team Providers Care Law Enforcement Officer Name Role Phone Unavailable Primary Care Provider Unavailabl e Encounter Details Date Type Department Care Team (Late st Contact Info) Description 04/23/2019 Historic Encounter [facility] Radiology [address] [place] [address] Guero Schwartz MD [address] [place] [address] Social History Tobacco Use Types Packs/Day Years [...] Name Priority Date/Time Associated Diagnosis Comments MR BRAIN WITH & WITHOUT IV CONTRAST Routine 04/23/2019 2:53 PM EST documented in this encounter Results * MR BRAIN WITH & WITHOUT IV CONTRAST (04/23/2019 2:53 PM EST) Anatomical Region Laterality Modality Head, Brain Magnetic Resonan ce 04/23/2019 2:53 PM EST Narrative 04/24/2019 3:27 PM EST MR BRAIN, WITHOUT AND WITH CONTRAST\.br\.br\HISTORY: Spinal canal mass.\.br\.br\TECHNIQUE: Multiplanar imaging was performed of the brain with and\.br\without Gadolinium infusion.\.br\.br\FINDINGS: Diffusion sequences show no signal abnormalities to indicate\.br\acute infarct or other process.\.br\.br\Brain parenchyma displays normal signal without evidence of intra-axial\.br\mass, hemorrhage or edema.\.br\.br\However, there is an ovoid extra-axial mass overlying the right\.br\frontoparietal junction. The lesion measures 24 x 18 x 12 mm with\.br\homogeneous enhancement. There is minimal mass effect on adjacent brain\.br\parenchyma without evidence of underlying edema or hemorrhage. No other\.br\abnormal enhancing lesions are seen. The ventricles and cisterns appear\.br\normal. No abnormal enhancing lesions are identified on the postinfusion\.br\images.\.br\.br\There is fluid noted within the nasopharynx, oropharynx with extension\.br\to the hypopharynx probably due to secretions associated with\.br\intubation.\.br\.br\IMPRESSION: \.br\1. Smoothly marginated homogeneously enhancing extra-axial mass\.br\overlying the right frontoparietal region measuring up to 24 mm, favored\.br\to represent a meningioma. Dural metastasis would be considered much\.br\less likely.\.br\2. Remaining brain parenchyma is unremarkable.\.br\ Procedure Note Provider, Aiyana, - 08/29/2022 MR BRAIN, WITHOUT AND WITH CONTRAST\.br\.br\HISTORY: Spinal canalmass.\.br\.br\TECHNIQUE: Multiplanar imaging was performed of the brainwith and\.br\without Gadolinium infusion.\.br\.br\FINDINGS: Diffusionsequences show no signal abnormalities to indicate\.br\acute infarct or other process.\.br\.br\Brain parenchymadisplays normal signal without evidence of intra-axial\.br\mass,hemorrhage or edema.\.br\.br\However, there is an ovoid extra-axial massoverlying the right\.br\frontoparietal junction. The lesion measures 24 x 18 x 12 mm with\.br\homogeneousenhancement. There is minimal mass effect on adjacent brain\.br\parenchymawithout evidence of underlying edema or hemorrhage. No other\.br\abnormalenhancing lesions are seen. The ventricles and cisterns appear\.br\normal. No abnormal enhancing lesionsare identified on the postinfusion\.br\images.\.br\.br\There is fluidnoted within the nasopharynx, oropharynx with extension\.br\to thehypopharynx probably due to secretions associated with\.br\intubation.\.br\.br\IMPRESSION: \.br\1. Smoothlymarginated homogeneously enhancing extra-axial mass\.br\overlying theright frontoparietal region measuring up to 24 mm, favored\.br\torepresent a meningioma. Dural metastasis would be considered much\.br\less likely.\.br\2. Remaining brain parenchyma isunremarkable.\.br\ us Guero Schwartz MD IMG MRI ORDERABLES Final Resul t documented in this encounter Visit Diagnoses Not on filedocumented in this encounter
--- OUTSIDE RECORDS SUMMARY | 2024-02-20 09:22 | XMS_ITS | Encounter Summary ---
Author Organization [employer] Address [address] [place] [address] Care Team Providers Care Plastics Process Hand Name Role Phone Unavailable Primary Care Provider Unavailabl e Encounter Details Date Type Department Care Team (Late st Contact Info) Description 04/23/2019 Historic Encounter [address] [address] Provider, Luciano Bronson MD Social [...] Priority Date/Time Associated Diagnosis Comments GLUCOSE-POC Routine 04/23/2019 5:48 PM EST documented in this encounter Results * Glucose, Point of Care (04/23/2019 5:48 PM EST) Glucose POC2 103 70 - 110 mg/dL 04/23/2019 10:48 PM EST [facility] Past Due Accounts Clerk [id number] 04/23/2019 10:48 PM EST [facility] Device SN [id number] 04/23/2019 10:48 PM EST [facility] Device Comment1 No action Require 04/23/2019 10:48 PM EST [facility] Blood 04/23/2019 5:48 PM EST 04/23/2019 10:[address] [facility] Historical Provider POINT OF CARE TEST OR DERABLES Final Result [facility] [address] [phone] documented in this encounter Visit Diagnoses Not on filedocumented in this encounter
--- OUTSIDE RECORDS SUMMARY | 2024-02-20 09:22 | XMS_ITS | Encounter Summary ---
Author Organization [employer] Address [address] [place] [address] Care Team Providers Care Rn Visiting Name Role Phone Unavailable Primary Care Provider Unavailabl e Encounter Details Date Type Department Care Team (Late st Contact Info) Description 04/15/2019 Historic Encounter [address] [address] Provider, Luciano Bronson MD Social [...] Priority Date/Time Associated Diagnosis Comments HEMOGLOBIN A1C Routine 04/15/2019 8:32 AM EST documented in this encounter Results * HEMOGLOBIN A1C (04/15/2019 8:32 AM EST) HgbA1C 7.1 % 04/15/2019 3:55 PM EST Comment: Ranges for Diabetic Adults(Diagnosed/Non-)\.br\.br\Hemoglobin A1c(%) ??Glycemic Index\.br\ <8 ?Less Stringent Goal \.br\ <7 ? General Goal\.br\ <6.5 ?More Stringent Goal \.br\.br\.br\Ranges to Aid in Diagnosis of Diabetes\.br\.br\Hemoglobin A1c(%) ??Suggested Diagnosis\.br\ ? > or = 6.5 ? Diabetic \.br\ ?5.7 - 6.4 ?Pre- Diabetic\.br\ <5.7 ? Non-Diabetic eAVG Glucose 157 mg/dL 04/15/2019 3:55 PM EST Blood 04/15/2019 8:32 AM EST 04/15/2019 2:31 PM EST [facility] Historical Provider LAB BLOOD ORDERABLES Final Result [facility] [address] [phone] documented in this encounter Visit Diagnoses Not on filedocumented in this encounter
--- OUTSIDE RECORDS SUMMARY | 2024-02-20 09:22 | XMS_ITS | Encounter Summary ---
Author Organization [email or web address] Address [address] [place] [id number] Care Team Providers Care Cell Tuber Machine Name Role Phone Unavailable Primary Care Provider Unavailabl e Encounter Details Date Type Department Care Team (Late st Contact Info) Description 04/23/2019 Transcribed Document [address] [address] Provider, [facility] MD Aiyana Social History Tobacco Use Types Packs/Day Years Used Date Smoking Tobacco: Never Assessed Comments Unknown Sex and Gender Information Value Date Recorded Sex Assigned at Not on file Legal Sex Female 6:01 PM CDT Gender Identity Not on file Sexual Orientation Not on file documented as of this encounter Miscellaneous Notes * Cerner Conversion Note - [facility] Aiyana ProviderMD - 04/23/2019 7:04 PM EST [facility] [place] [address] GERTRUDIS DALY :1955 Visit Time:04/23/2019 Your Visit Summary Your Care Team Admitting Physician - MELIZA DOWNS MD-SNU Attending Physician - MELIZA DOWNS MD-U Primary Care Physician - LULY URIBE NP-INT Referring Physician - LULY URIBE NP-INT MELIZA DOWNS MD-NIYA Discharge Vitals Temperature 36.6 ??C Heart Rate (Monitored) 63 Respiratory Rate 18 Blood Pressure 150/73 What to do next Instructions From Your Care Team No driving for 24 hours. Follow-Up Appointments Follow Up with MELIZA DOWNS MD-SNU When Within 2 to 3 days Comments Call for follow up appointment for results. Where: [address] [facility] [address] [place] [address]- Medications What How Much When Instructions Next Dose albuterol (ProAir HFA 90 mcg/ inh inhalation aerosol) 2 Puff(s) Inhalation Four Times A Day as needed for as needed for wheezing bisoprolol 5 Milligram(s) Oral At Bedtime cyclobenzaprine 10 Milligram(s) Oral Two Times A Day as needed for Muscle Spasms domperidone (Domperidone) 10 Milligram(s) Oral Four Times A Day empagliflozin (Jardiance) 10 Milligram(s) Oral Every Morning glimepiride 4 Milligram(s) Oral Every Day losartan 100 Milligram(s) Oral Every Day lubiprostone (Amitiza) 24 Microgram(s) Oral Two Times A Day NIFEdipine (NIFEdipine extended release) 60 Milligram(s) Oral Every Day omeprazole 40 Milligram(s) Oral Every Day pyridoxine (Vitamin B6) 100 Milligram(s) Oral Two Times A Day rOPINIRole 1 Milligram(s) Oral At Bedtime SITagliptin (Januvia) 100 Milligram(s) Oral Every Day topiramate 50 Milligram(s) Oral Every Day as needed for Migraine Headache traMADol 50 Milligram(s) Oral Three Times A Day as needed for as needed for pain traZODone 50-100 mg Oral At Bedtime Take your medications faithfully. Do NOT skip medication. Do NOT stop taking medications without the direction of a physician. Carry a list of your medications with you at all times, and take this medication list with you to your first follow up visit. Report any side effects. Avoid herbal remedies unless discussed with your physician. As part of your treatment plan, your physician may have prescribed a limited course of a controlled substance. This medication may be given to help people with moderate or severe pain or for other medical conditions, but there are risks involved with treatment. Common side effects may include nausea, constipation, drowsiness, sweating, itching, dry mouth, and rash. More serious side effects may include cognitive and motor impairment, like problems with thinking, concentrating, alertness, and movement (e.g. slowed reflexes), and driving and operating heavy machinery can be dangerous. It is important for you to talk to your physician if you have these side effects or questions. These controlled substances can produce physical dependence and be habit-forming if taken for an extended period of time, which means that the body has gotten used to them and may experience withdrawal symptoms if they are abruptly stopped. Withdrawal symptoms can include runny nose, sweating, goose bumps, diarrhea, abdominal cramping, rapid heartbeat, difficulty sleeping, and nervousness. Please dispose of unused and medications per your retail pharmacy guidance. Allergies Hydrochlorothiazide-Metoprolol ER (Dry cough) Latex (Rash) Neurontin (Hallucinations) amLODIPine metFORMIN (Blurred vision) spironolactone (Actos) Immunizations This Visit No Immunizations Found Education Materials General Anesthesia, Adult, Care After This sheet gives you information about how to care for yourself after your procedure. Your health care provider may also give you more specific instructions. If you have problems or questions, contact your health care provider. What can I expect after the procedure? After the procedure, the following side effects are common: ??? Pain or discomfort at the IV site. ??? Nausea. ??? Vomiting. ??? Sore throat. ??? Trouble concentrating. ??? Feeling cold or chills. ??? Weak or tired. ??? Sleepiness and fatigue. ??? Soreness and body aches. These side effects can affect parts of the body that were not involved in surgery. Follow these instructions at home: For at least 24 hours after the procedure: ??? Have a responsible adult stay with you. It is important to have someone help care for you until you are awake and alert. ??? Rest as needed. ??? Do not: ? Participate in activities in which you could fall or become injured. ? Drive. ? Use heavy machinery. ? Drink alcohol. ? Take sleeping pills or medicines that cause drowsiness. ? Make important decisions or sign legal documents. ? Take care of children on your own. Eating and drinking ??? Follow any instructions from your health care provider about eating or drinking restrictions. ??? When you feel hungry, start by eating small amounts of foods that are soft and easy to digest (bland), such as toast. Gradually return to your regular diet. ??? Drink enough fluid to keep your urine pale yellow. ??? If you vomit, rehydrate by drinking water, juice, or clear broth. General instructions ??? If you have sleep apnea, surgery and certain medicines can increase your risk for breathing problems. Follow instructions from your health care provider about wearing your sleep device: ? Anytime you are sleeping, including during daytime naps. ? While taking prescription pain medicines, sleeping medicines, or medicines that make you drowsy. ??? Return to your normal activities as told by your health care provider. Ask your health care provider what activities are safe for you. ??? Take sgii-qoy-naescbs and prescription medicines only as told by your health care provider. ??? If you smoke, do not smoke without supervision. ??? Keep all follow-up visits as told by your health care provider. This is important. Contact a health care provider if: ??? You have nausea or vomiting that does not get better with medicine. ??? You cannot eat or drink without vomiting. ??? You have pain that does not get better with medicine. ??? You are unable to pass urine. ??? You develop a skin rash. ??? You have a fever. ??? You have redness around your IV site that gets worse. Get help right away if: ??? You have difficulty breathing. ??? You have chest pain. ??? You have blood in your urine or stool, or you vomit blood. Summary ??? After the procedure, it is common to have a sore throat or nausea. It is also common to feel tired. ??? Have a responsible adult stay with you for the first 24 hours after general anesthesia. It is important to have someone help care for you until you are awake and alert. ??? When you feel hungry, start by eating small amounts of foods that are soft and easy to digest (bland), such as toast. Gradually return to your regular diet. ??? Drink enough fluid to keep your urine pale yellow. ??? Return to your normal activities as told by your health care provider. Ask your health care provider what activities are safe for you. This information is not intended to replace advice given to you by your health care provider. Make sure you discuss any questions you have with your health care provider. Document Released: 06/25/2001 Document Revised: 11/02/2017 Document Reviewed: 11/02/2017 Elsevier Interactive Patient Education ?? 2019 Else[employer] Inc. Magnetic Resonance Imaging Magnetic resonance imaging (MRI) is an imaging test that produces clear digital pictures of the inside of your body without using X-rays. The MRI scanner uses radio waves and a magnetic field to create the images. The MRI pictures may provide different details than images obtained through X-rays, CT scans, or ultrasounds. Contrast material may be injected to make MRI images even more clear. In a standard MRI scanner, the area of your body being studied will be in the center opening of the scanner. In open MRI scanners, the scanner does not entirely surround your body. Tell a health care provider about: ??? Any surgeries you have had. ??? Any metal you may have in your body. The magnet used in MRI can cause metal objects in your body to move. This includes: ? A pacemaker or any other implants, such as an implanted neurostimulator, a metallic ear implant, or a metallic object within the eye socket. ? Metal splinters in your body. ? Any bullet fragments. ? A port for delivering insulin or chemotherapy. ??? Any tattoos. Some red dyes contain iron which is sometimes a problem. ??? If you are or may be . ??? If you are . ??? If you are afraid of cramped spaces (claustrophobic). If claustrophobia is a problem, it usually can be relieved with medicines or the use of the open MRI scanner. ??? Any allergies you have. ??? All medicines you are taking, including vitamins, herbs, eye drops, creams, and hnez-tsw-wtkpdpv medicines. What are the risks? Generally, MRI is a safe procedure. However, problems can occur and include: ??? If a metal implant is present but is undetected, it may be affected by the strong magnetic field. In addition, if the implant is close to the examination site, it may be hard to get high-quality images. ??? If you are : ? MRI generally should be avoided during the first three months of . It is not known what effects the MRI may have on a fetus. Ultrasound is preferred at this time unless a serious condition is suspected that is best studied by MRI. MRI should be considered if there is a substantial risk of missing the correct diagnosis if MRI is not done. ??? If you are : ? You should inform your health care provider and ask how to proceed. You may pump breast milk before the exam for use until the contrast material, if used, has cleared from the body. What happens before the procedure? You will be asked to remove all metal, including: ? Your watch, jewelry, and other metal objects. ? Some makeup also contains traces of metal and may need to be removed. ? Braces and fillings normally are not a problem. What happens during the procedure? You may be given earplugs or headphones to listen to music. The MRI scanner can be noisy. ??? You may be injected with contrast material. ??? The standard MRI is done in a long, magnetic chamber. You will lie down on a platform that slides into the magnetic chamber. Once inside, you will still be able to talk to the person performing the test. The open MRI scanner is open on at least one side of the scanner. ??? You will be asked to hold very still. You will be told when you can shift position. You may have to wait a few minutes to make sure the images are readable. What happens after the procedure? You may resume normal activities right away. ??? If you were given contrast material, it will pass naturally through your body within a day. ??? A person experienced in MRI (radiologist) will analyze the results and send a report to your health care provider, along with an explanation of the results. This information is not intended to replace advice given to you by your health care provider. Make sure you discuss any questions you have with your health care provider. Document Released: 03/16/2001 Document Revised: 08/21/2016 Document Reviewed: 05/14/2014 [employer] Interactive Patient Education ?? 2017 [employer] Emergency Awareness and Preventative Care STROKE is an EMERGENCY Every Minute Counts Act FAST and Check for these signs: FACE Does the face look uneven? ARM Does one arm drift down? SPEECH Does their speech sound strange? TIME Call at any sign of stroke Stroke Risk Factors Atrial Fibrillation (irregular heartbeat) Diabetes Family history of stroke Heart Disease Heavy alcohol use High Blood Pressure High Cholesterol Physical inactivity and obesity Smoking Cigarette Smoking The facts are clear, cigarette smoking will shorten your life. Smoking can cause many illnesses along the way. As a healthcare provider, we recommend that you stop smoking. Assistance with quitting is available by contacting 7-153-AIXUNOW. This is a free resource providing counseling, support, and referral. Or you may contact your personal physician. National Suicide Prevention Lifeline: The National Suicide Prevention Lifeline is a national network of local crisis centers that provides free and confidential emotional support to people in suicidal crisis or emotional distress 24 hours a day, 7 days a week. Don't Wait! Stop a Heart Attack Before it Starts What is a heart attack? A heart attack is damage or to a part of the heart from severely decreased or lack of blood flow to the heart. Over time, arteries can become narrow from the buildup of fat and cholesterol, which is called plaque. The plaque can rupture causing a blood clot to form. When the blood clot forms, the artery can become severely narrowed or completely blocked, causing a heart attack. Heart attack is the leading cause of in the [place]. 85% of muscle damage occurs within the first 2 hours. Delay in the recognition of heart attack symptoms increases the chances of . Know the early symptoms of a heart attack: Nausea Feeling of fullness in chest Jaw Pain Pain that travels down one or both arms Fatigue/being tired Anxiety Back Pain Chest pressure, squeezing, or discomfort Shortness of breath Sweating, or a cold sweat Feeling of impending doom There are unusual signs of a heart attack, too! Women, the elderly, and diabetics may present with atypical symptoms: Fainting/dizziness Weakness Confusion Risk Factors for a Heart Attack Some heart disease risk factors, such as age and family history, cannot be changed. Others, like smoking and lack of exercise, can be changed. Smoking High Cholesterol High Blood Pressure Family History Obesity Age Gender (Males are at higher risk) Lack of Exercise Diabetes Diet Stress Excessive Alcohol Intake If you or someone you know is experiencing the signs and symptoms of a heart attack, DON???T DELAY. Call immediately and seek help. If someone collapses, perform CPR! Do not attempt to drive if you are having symptoms of heart attack. Hands-Only CPR Why Hands-Only CPR? Hands-Only CPR has been shown to be as effective as conventional CPR for cardiac arrests that occur outside of a hospital. Survival depends on immediately receiving CPR from someone nearby. How do you perform Hands-Only CPR? There are two easy steps: Call 9-1-1 if you see a teen or adult collapse Push hard and fast in the center of the chest at a beat of 100 beats per minute. Save a life! 4 WAYS TO GET AHEAD OF SEPSIS SEPSIS is a MEDICAL EMERGENCY. Time matters! Infections put you and your family at risk for a life-threatening condition called sepsis. Sepsis is the body's extreme response to an infection. It is life-threatening, and without timely treatment, sepsis can rapidly lead to tissue damage, organ failure, and . Sepsis happens when an infection you already have-in your skin, lungs, urinary tract or somewhere else-triggers a chain reaction throughout your body. 1 PREVENT INFECTIONS Take good care of chronic conditions. Talk to your doctor about getting the recommended vaccines. 2 PRACTICE GOOD HYGIENE Wash your hands frequently. Keep cuts or open sores clean and covered until they are healed. 3 KNOW THE SYMPTOMS Confusion or disorientation Shortness of breath High heart rate Fever, shivering, or feeling very cold Extreme pain or discomfort Clammy or sweaty skin 4 ACT FAST Get medical care IMMEDIATELY if you suspect sepsis or if you have an infection that is not getting better or is getting worse. To learn more about sepsis and how to prevent infections, visit www.cdc.gov/sepsis. Test Results Laboratory or Other Results This Visit (last charted value for your 04/23/2019 visit) General Chemistry 04/23/2019 5:48 PM Glucose POC2: 103 mg/dL -- Normal range between ( 70 and 110 ) Device Comment 1: Device Comment 1 Patient Name:GERTRUDIS DALY Ofelia I have received and understand this information and was given the opportunity to ask questions. Patient/Project Intern Name: Patient/Project Intern Signature: Relationship to Patient: Clinician/Hospital Project Intern Signature: Date: Electronically signed by Carito, [facility] Conversion Ruling Machine Set Up Operator Curtis at 08/23/2022 11:19 AM CDT documented in this encounter Plan of Treatment Not on file documented as of this encounter Visit Diagnoses Not on filedocumented in this encounter
--- OUTSIDE RECORDS SUMMARY | 2024-02-20 09:22 | XMS_ITS | Encounter Summary ---
Author Organization [employer] Address [address] [place] [address] Care Team Providers Care Exceptional Needs Teacher Name Role Phone Unavailable Primary Care Provider Unavailabl e Encounter Details Date Type Department Care Team (Late st Contact Info) Description 04/23/2019 Historic Encounter [facility]iology [address] [place] [address] Guero Schwartz MD [address] [place] [address] Social History Tobacco Use Types Packs/Day Years [...] Priority Date/Time Associated Diagnosis Comments MR SPINE CERVICAL WITHOUT & WITH CONTRAST ONE PLANE Routine 04/23/2019 2:53 PM EST documented in this encounter Results * MR spine cervical without & with contrast one plane (04/23/2019 2:53 PM EST) Anatomical Region Laterality Modality Magnetic Resonan ce 04/23/2019 2:53 PM EST Narrative 04/24/2019 12:04 AM EST MR CERVICAL SPINE WITHOUT AND WITH CONTRAST\.br\.br\HISTORY: Spinal canal mass; 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 Alignment is normal. The cervical\.br\spinal cord shows normal signal and contour. \.br\.br\Following contrast administration, there is no abnormal enhancement\.br\identified.\.br\.br\Fluid is noted extending from the nasopharynx to the oropharynx and\.br\hypopharynx. This could be related to reflux or sinonasal secretions.\.br\.br\C2-C3: No significant disc disease is present. There is no canal\.br\stenosis.\.br\.br\C3-C4: Tiny central disc protrusion.\.br\.br\C4-C5: Mild annular disc bulge.\.br\.br\C5-C6: Moderate- large annular disc bulge. Small central disc protrusion.\.br\Moderate central canal stenosis. Cord contact with posterior cord\.br\displacement. This mildly flattens the anterior spinal cord. Severe\.br\right and moderate left neural foraminal narrowing.\.br\.br\C6-C7: Moderate annular disc bulge. Mild central canal stenosis.\.br\Moderate bilateral neural foraminal narrowing.\.br\.br\C7-T1: No significant disc disease is present. There is no canal\.br\stenosis.\.br\.br\IMPRESSION: \.br\1. Moderate to large annular disc bulge C5-6 causing significant central\.br\canal stenosis with cord contact and posterior cord displacement.\.br\2. No evidence of spinal canal mass or cord lesion.\.br\ Procedure Note Provider, MD Aiyana - 08/29/2022 MR CERVICAL SPINE WITHOUT AND WITH CONTRAST\.br\.br\HISTORY: Spinal canalmass; D43.4.\.br\.br\TECHNIQUE: Multiplanar MR, without and with contrastadministration.\.br\.br\FINDINGS: No fracture is present. Alignment isnormal. The cervical\.br\spinal cord shows normal signal and contour. \.br\.br\Following contrastadministration, there is no abnormalenhancement\.br\identified.\.br\.br\Fluid is noted extending from thenasopharynx to the oropharynx and\.br\hypopharynx. This could be relatedto reflux or sinonasal secretions.\.br\.br\C2-C3: No significant discdisease is present. There is no canal\.br\stenosis.\.br\.br\C3-C4: Tinycentral disc protrusion.\.br\.br\C4-C5: Mild annular discbulge.\.br\.br\C5-C6: Moderate- large annular disc bulge. Small central disc protrusion.\.br\Moderate central canal stenosis.Cord contact with posterior cord\.br\displacement. This mildly flattensthe anterior spinal cord. Severe\.br\right and moderate left neuralforaminal narrowing.\.br\.br\C6- C7: Moderate annular disc bulge. Mild central canal stenosis.\.br\Moderatebilateral neural foraminal narrowing.\.br\.br\C7-T1: No significant discdisease is present. There is no canal\.br\stenosis.\.br\.br\IMPRESSION:\.br\1. Moderate to large annular disc bulge C5-6 causing significant central\.br\canal stenosis with cordcontact and posterior cord displacement.\.br\2. No evidence of spinalcanal mass or cord lesion.\.br\ us Guero Schwartz MD IMG MRI ORDERABLES Final Resul t documented in this encounter Visit Diagnoses Not on filedocumented in this encounter
--- OUTSIDE RECORDS SUMMARY | 2024-02-20 09:22 | XMS_ITS | Encounter Summary ---
Author Organization [employer] Address [address] [place] [address] Care Team Providers Care Drapery And Upholstery Estimator Name Role Phone Unavailable Primary Care Provider Unavailabl e Encounter Details Date Type Department Care Team (Late st Contact Info) Description 04/23/2019 Transcribed Document [address] [address] Provider yvon Bronson MD Social [...] * Cerner Conversion Note - [facility] Aiyana ProviderMD - 04/23/2019 7:03 PM EST Nursing Discharge Summary Entered On: 04/23/2019 18:03 EST Performed On: 04/23/2019 18:03 EST by LUCIEN PUGH RN Discharge Documentation Discharge Date/Time : 04/23/2019 18:25 EST Discharge To : Home with ambulatory/outpatient follow-up LUCIEN PUGH RN - 04/23/2019 18:20 EST Patient Disposition, General : Discharge Accompanied By, Discharge : Friend IV Discontinued : Yes Personal Belongings With Patient : Yes Discharge Instructions Reviewed With, Opportunity For Questions Given : Patient, Friend Patient Education Completed : Yes Teaching Method : Explanation, Printed materials Teaching Evaluation : Returns demonstration, Verbalizes understanding LUCIEN PUGH RN - 04/23/2019 18:03 EST documented in this encounter Plan of Treatment Not on file documented as of this encounter Visit Diagnoses Not on filedocumented in this encounter
--- OUTSIDE RECORDS SUMMARY | 2024-02-20 09:22 | XMS_ITS | Encounter Summary ---
Author Organization [email or web address] Address [address] [place] [address] Care Team Providers Care Senior Manager Mmcoe Name Role Phone Unavailable Primary Care Provider Unavailabl e Encounter Details Date Type Department Care Team (Late st Contact Info) Description 04/23/2019 Transcribed Document [facility] 1 [place] [address] Provider, Luciano Bronson MD Social History Tobacco Use Types Packs/Day Years Used Date Smoking Tobacco: Never Assessed Comments Unknown Sex and Gender Information Value Date Recorded Sex Assigned at Not on file Legal Sex Female 6:01 PM CDT Gender Identity Not on file Sexual Orientation Not on file documented as of this encounter Miscellaneous Notes * Cerner Conversion Note - [facility] Aiyana Ang MD - 04/23/2019 5:07 PM EST Patient Education Materials Follows: General Anesthesia, Adult, Care After This sheet [...] activities are safe for you. ??? Take tisb-uif-dkkekmu and prescription medicines only as told by [...] 06/25/2001 Document Revised: 11/02/2017 Document Reviewed: 11/02/2017 [employer] Interactive Patient Education ? 2019 [employer]. Magnetic Resonance Imaging Magnetic resonance imaging (MRI) [...] including vitamins, herbs, eye drops, creams, and nfcb-vta-pryehvl medicines. What are the risks? Generally, MRI [...] 03/16/2001 Document Revised: 08/21/2016 Document Reviewed: 05/14/2014 Elsevier Interactive Patient Education ? 2017 Elsevier Inc. Electronically signed by Luciano Arzate Conversion [employer] Professor Cerner at 08/23/2022 11:19 AM CDT documented in this encounter Plan of Treatment Not on file documented as of this encounter Visit Diagnoses Not on filedocumented in this encounter
--- OUTSIDE RECORDS SUMMARY | 2024-02-20 09:22 | XMS_ITS | Encounter Summary ---
Author Organization [employer] Address [address] [place] [address] Care Team Providers Care Sales And Service Technician Name Role Phone Unavailable Primary Care Provider Unavailabl e Encounter Details Date Type Department Care Team (Late st Contact Info) Description 04/15/2019 Historic Encounter [address] [address] Provider, Luciano Bronson MD Social [...] Name Priority Date/Time Associated Diagnosis Comments URINALYSIS WITHOUT MICROSCOPIC ([facility] DATA CONV) Routine 04/15/2019 8:26 AM EST documented in this encounter Results * (ABNORMAL) URINALYSIS WITHOUT MICROSCOPIC ([facility] DATA CONV) (04/15/2019 8:26 AM EST) Urine Type U CleanCatch 04/15/2019 1:18 PM EST Urine Color Yellow 04/15/2019 2:37 PM EST Comment: Substances that cause HIGHLY abnormal urine color may affect the accuracy of URINE CHEMISTRY reagent strip results due to colorimetric interference. ??These include visible levels of blood or bilirubin, drugs containing dyes, and some antibiotics such as nitrofurantoin and riboflavin which can cause markedly abnormal urine coloration. Urine Appearance Clear 04/15/19 20 2:37 PM EST Urine Glucose Dipstick >=1000(A) Negative 04/15/2019 2:37 PM EST Urine Bilirubin Dipstick Negative Negative 04/15/2019 2:37 PM EST Urine Ketones Dipstick Negative Negative 04/15/2019 2:37 PM EST Urine Specific [place] >1.030(H) 1.005 - 1.030 04/15/2019 2:37 PM EST Urine Blood Dipstick Negative Negative 04/15/2019 2:37 PM EST Urine pH Dipstick 6.0 6.0 - 8.0 04/15/2019 2:37 PM EST Urine Protein Dipstick Negative Negative 04/15/2019 2:37 PM EST Comment:Use of urine preserv atives may elevate protein results and reduce bilirubin, blood and nitrite results. Urine Urobilinogen Dipstick 1.0 EU/dL 04/15/2019 2:37 PM EST Urine Nitrite Negative Negative 04/15/2019 2:37 PM EST Urine Leukocyte Esterase Negative Negative 04/15/2019 2:37 PM EST Urine 04/15/2019 8:26 AM EST 04/15/2019 2:31 PM EST [facility] Historical Provider URINE ORDERABLES Rosie l Result [facility] [address] [phone] documented in this encounter Visit Diagnoses Not on filedocumented in this encounter
--- OUTSIDE RECORDS SUMMARY | 2024-02-20 09:22 | XMS_ITS | Encounter Summary ---
Author Organization [employer] Address [address] [place] [address] Care Team Providers Care Kerrick Kleaner Operator Name Role Phone Unavailable Primary Care Provider Unavailabl e Encounter Details Date Type Department Care Team (Late st Contact Info) Description 04/15/2019 Transcribed Document [address] [address] Provider, Luciano Bronson MD Social History Tobacco Use Types Packs/Day Years Used Date Smoking Tobacco: Never Assessed Comments Unknown Sex and Gender Information Value Date Recorded Sex Assigned at Not on file Legal Sex Female 6:01 PM CDT Gender Identity Not on file Sexual Orientation Not on file documented as of this encounter Miscellaneous Notes * Cerner Conversion Note - [facility] Aiyana ProviderMD - 04/15/2019 10:16 AM EST PAT Adult Entered On: 04/15/2019 9:24 EST Performed On: 04/15/2019 9:16 EST by TIA SHARMA RN Vital Measurements Temperature Source : Temporal artery scanning Temperature Mode : Fahrenheit Temperature, Fahrenheit : 97.1 Deg F Clinical Temperature, C : 36.2 Deg C Pulse Method : Non-Invasive BP Device Peripheral Pulse Rate : 80 bpm Respiratory Rate : 18 Breaths/Min Blood Pressure Location : Arm, left upper Blood Pressure Source : Non-Invasive BP Device Blood Pressure Position : Sitting Systolic Blood Pressure : 145 mmHg (HI) Diastolic Blood Pressure : 89 mmHg Oxygen Saturation : 95 % Oxygen Therapy Mode : Room air TIA SHARMA RN - 04/15/2019 9:26 EST Pain Assessment Pain Assessment : Initial assessment Pain Scale Goal : 4 TIA SHARMA RN - 04/15/2019 9:16 EST Height and Weight, Clinical Dosing Height Source : Measured Height Entry Format : [place] Height, Feet : 5 ft(Converted to: 152 cm, 60 Inch) Height, Inches : 2 Inch(Converted to: 0 ft 2 Inch, 5.08 cm) Clinical Height : 157.48 cm Weight Source : Standing scale Weight Entry Format : [place] Clinical Dosing Weight : 82.14 kg Weight, Pounds : 180.7 lb Body Surface Area (BSA) : 1.83 m2 Body Mass Index : 33.1 kg/m2 (HI) [place] Body Weight : 50 kg TIA SHARMA RN - 04/15/2019 9:16 EST Health Histories Smoking Status : Never (less than 100 in lifetime; none in last 30 days) Smokeless Tobacco Status : Never TIA SHARMA RN - 04/15/2019 9:16 EST Social History (As Of: 04/15/2019 09:24:46 EST) Tobacco: Never (less than 100 in lifetime) Smoking Status. Never Smokeless Tobacco Status. (Last Updated: 04/15/2019 09:19:33 EST by TIA SHARMA, RN) Alcohol: Alcohol Use Comment none. (Last Updated: 04/15/2019 09:19:39 EST by TIA SHARMA, RN) Substance Abuse: Drug Use Hx: No. Use in Last 12 Months: No. (Last Updated: 04/15/2019 09:19:44 EST by TIA SHARMA, RN) Infectious Disease History Physical contact outside US in the last 30 days : No Infectious Disease History : None Isolation Needed : Standard Tuberculosis Symptoms : Fatigue, Night Sweats TIA SHARMA RN - 04/15/2019 9:16 EST Anesthesia/Transfusion History Family History of Anesthesia Reaction : No prior transfusion(s) Blood Transfusion Acceptable to Patient : Yes Transfusion History : Prior anesthesia reaction Type of Anesthesia Reaction : Excessive somnolence, Excessive nausea/vomiting Family History of Anesthesia Reaction : None TIA SHARMA RN - 04/15/2019 9:16 EST Advance Directive Patient has Advance Directive *Q : Yes, Advance Directive not with the patient Advance Directive Type : Living will Copy Advance Directive Verified/on Chart : No TIA SHARMA RN - 04/15/2019 9:16 EST [place] Suicide Severity Rating Scale (C-SSRS) CSSRS Past Month Wish to be : No CSSRS Past Month Suicidal Thoughts : No CSSRS Lifetime Suicide Behavior : No Suicide Severity Rating Score : 0 Suicide Severity Rating : No Additional Care Required at this time TIA SHARMA RN - 04/15/2019 9:16 EST Psychosocial History Do You Have a History of the Following? : Anxiety, Depression, Other: panic attacks Currently in Unsafe Situation : No TIA SHARMA RN - 04/15/2019 9:16 EST Education Topics, Periop Preadmission Perioperative Education Grid Arrival Time/Place : Verbalizes understanding CHG Preoperative Bathing/Cloths : Verbalizes understanding Infection Control : Verbalizes understanding IV's : Verbalizes understanding NPO Status/Directions : Verbalizes understanding Pain Management : Verbalizes understanding Preprocedure Preparations : Verbalizes understanding Preprocedure Tests/Labs : Verbalizes understanding Remove Body Piercings : Verbalizes understanding Responsible Adult : Verbalizes understanding Take/Hold Medications Pre-Procedure : Verbalizes understanding TIA SHARMA RN - 04/15/2019 9:16 EST General Info Preferred Name : Gertrudis Patient Arrival Date/Time : 04/25/2019 7:51 EST RICARDO Rojas RN - 04/25/2019 8:26 EST Arrived From : Home Mode of Arrival on Unit : Ambulatory TIA SHARMA RN - 04/15/2019 9:16 EST Legal Guardian : Spouse RICARDO Rojas RN - 04/25/2019 8:26 EST Want Family/Rep/Phys Notified of Admit : No Emergency Contact #1 : Michelle Gonzalez Emergency Contact #1 cell Emergency Contact #1 Relationship : Emergency Contact #2 : Kandi Burt Emergency Contact #2 cell Emergency Contact #2 Relationship : daughter Primary Language : Japanese Preferred Communication Mode : Verbal Communication Barrier : None TIA SHARMA RN - 04/15/2019 9:16 EST Aly Scale Aly Sensory Perception : Slightly limited Aly Moisture : Rarely moist Aly Activity : Walks frequently Aly Mobility : Slightly limited Aly Nutrition : Adequate Aly Friction and Shear : Potential problem Aly Score : 19 TIA SHARMA RN - 04/15/2019 9:16 EST Sleep Apnea Risk Assmt BiPAP/CPAP Ordered for Home Use : Yes Hx of Obstructive Sleep Apnea Diagnosis : Yes BiPAP/CPAP Used at Home : No Reason BiPAP/CPAP Not Used at Home : doesn't have one, couldn't sleep with mask on Age over 50 Years Old : Yes Gender Male : No TIA SHARMA RN - 04/15/2019 9:16 EST Electronically signed by Carito [facility] Conversion Residential Sales Representative Cerner at 08/23/2022 11:18 AM CDT documented in this encounter Plan of Treatment Not on file documented as of this encounter Visit Diagnoses Not on filedocumented in this encounter
--- OUTSIDE RECORDS SUMMARY | 2024-02-20 09:22 | XMS_ITS | Encounter Summary ---
Author Organization [employer] Address [address] [place] [address] Care Team Providers Care Cd Reactor Operator Name Role Phone Unavailable Primary Care Provider Unavailabl e Encounter Details Date Type Department Care Team (Late st Contact Info) Description 04/23/2019 Transcribed Document [address] [address] Provider, yvon Bronson MD Social History Tobacco Use Types Packs/Day Years Used Date Smoking Tobacco: Never Assessed Comments Unknown Sex and Gender Information Value Date Recorded Sex Assigned at Not on file Legal Sex Female 6:01 PM CDT Gender Identity Not on file Sexual Orientation Not on file documented as of this encounter Miscellaneous Notes * Cerner Conversion Note - [facility] Aiyana Provider, - 04/23/2019 1:[address] [facility] Main OR PACU Summary Primary Physician: MELIZA DOWNS MD-[facility] Finalized Date/Time: 04/23/19 18:34:36 Pt. Name: KANG DALYGHANSHYAM Gilbert /Sex: 1955 Female Med Rec #: [id number] Physician: MELIZA DOWNS MD-[facility] Financial #: [id number] Pt. Type: O Room/Bed: Admit/Disch: 04/23/19 10:57:00 - 04/23/19 18:25:00 Institution: [facility] Main OR PACU I Case Times Entry 1 In PACU I 04/23/19 16:50:00 Ready for PACU 04/23/19 18:00:00 Discharge Discharge from PACU 04/23/19 18:03:00 I Last Modified By: Ev Parada RN 04/23/19 18:34:11 [facility] Main OR PACU I Case Times Audit 04/23/19 18:34:11 Player Development Executive: [id number] Modifier: [id number] <+> 1 Ready for PACU Discharge <+> 1 Discharge from PACU I Finalized By: Ev Parada RN Document Signatures Signed By: Ev Parada RN 04/23/19 18:34 Electronically signed by Carito [facility] Conversion Ultrasound Coordinator Cerner at 08/23/2022 11:19 AM CDT documented in this encounter Plan of Treatment Not on file documented as of this encounter Visit Diagnoses Not on filedocumented in this encounter
--- OUTSIDE RECORDS SUMMARY | 2024-02-20 09:22 | XMS_ITS | Encounter Summary ---
Author Organization [employer] Address [address] [place] [address] Care Team Providers Care Mechanical Estimator Name Role Phone Unavailable Primary Care Provider Unavailabl e Encounter Details Date Type Department Care Team (Late st Contact Info) Description 04/23/2019 Transcribed Document [address] [address] Provider, Luciano Bronson MD Social History Tobacco Use Types Packs/Day Years Used Date Smoking Tobacco: Never Assessed Comments Unknown Sex and Gender Information Value Date Recorded Sex Assigned at Not on file Legal Sex Female 6:01 PM CDT Gender Identity Not on file Sexual Orientation Not on file documented as of this encounter Miscellaneous Notes * Cerner Conversion Note - [facility] Aiyana ProviderMD - 04/23/2019 12:37 PM EST Pre Procedure Adult Entered On: 04/23/2019 11:40 EST Performed On: 04/23/2019 11:37 EST by CHRISTOPHER MONTIEL RN Height and Weight, Clinical Dosing Height Source : Stated Height Entry Format : [place] Height, Feet : 5 ft(Converted to: 152 cm, 60 Inch) Height, Inches : 2 Inch(Converted to: 0 ft 2 Inch, 5.08 cm) Clinical Height : 157.48 cm Weight Source : Standing scale Weight Entry Format : [place] Clinical Dosing Weight : 81.82 kg Weight, Pounds : 180 lb Body Surface Area (BSA) : 1.83 m2 Body Mass Index : 33 kg/m2 (HI) [place] Body Weight : 50 kg CHRISTOPHER MONTIEL RN - 04/23/2019 11:37 EST Health Histories Smoking Status : Never (less than 100 in lifetime; none in last 30 days) Smokeless Tobacco Status : Never CHRISTOPHER MONTIEL RN - 04/23/2019 11:37 EST Social History (As Of: 04/23/2019 11:40:13 EST) Tobacco: Never (less than 100 in [...] : No Infectious Disease History : None Tuberculosis Symptoms : None CHRISTOPHER MONTIEL RN - 04/23/2019 11:37 EST Anesthesia/Transfusion History Family History of Anesthesia Reaction : No prior transfusion(s) Transfusion History : Prior anesthesia reaction Type of Anesthesia Reaction : Excessive somnolence, Excessive nausea/vomiting Family History of Anesthesia Reaction : None CHRISTOPHER MONTIEL RN - 04/23/2019 11:37 EST Functional Assessment Living Situation : Home Patient Lives With : Spouse Current Home Treatments : None CHRISTOPHER MONTIEL RN - 04/23/2019 11:37 EST [place] Suicide Severity Rating Scale (C-SSRS) CSSRS Past Month Wish to be : No CSSRS Past Month Suicidal Thoughts : No CSSRS Lifetime Suicide Behavior : No Suicide Severity Rating Score : 0 Suicide Severity Rating : No Additional Care Required at this time CHRISTOPHER MONTIEL RN - 04/23/2019 11:37 EST Psychosocial History Do You Have a History of the Following? : Anxiety, Depression, Other: panic attacks Currently in Unsafe Situation : No CHRISTOPHER MONTIEL RN - 04/23/2019 11:37 EST Advance Directive Patient has Advance Directive *Q : Yes, Advance Directive not with the patient Advance Directive Type : Living will Copy Advance Directive Verified/on Chart : No CHRISTOPHER MONTIEL RN - 04/23/2019 11:37 EST Teaching/Learning Assessment Barriers To Learning : None evident Individuals Taught : Patient CHRISTOPHER MONTIEL RN - 04/23/2019 11:37 EST Education Topics, Periop Preadmission Perioperative Education Grid Arrival Time/Place : Verbalizes understanding Falls : Verbalizes understanding Infection Control : Verbalizes understanding IV's : Verbalizes understanding NPO Status/Directions : Verbalizes understanding Pain Management : Verbalizes understanding Postoperative Care Preparations : Verbalizes understanding Preprocedure Preparations : Verbalizes understanding Preprocedure Tests/Labs : Verbalizes understanding Responsible Adult : Verbalizes understanding CHRISTOPHER MONTIEL RN - 04/23/2019 11:37 EST General Info Support Person/Pt Rep Name : Ya Navarro-Friend Support Person/Pt Rep Contact Information : [phone] Want Family/Rep/Phys Notified of Admit : No Emergency Contact #1 : . Emergency Contact #1 Phone Number : . Emergency Contact #1 Relationship : . Emergency Contact #2 : . Emergency Contact #2 Phone Number : . Emergency Contact #2 Relationship : . Primary Language : Iranian Preferred Communication Mode : Verbal Communication Barrier : None CHRISTOPHER MONTIEL RN - 04/23/2019 11:37 EST Sleep Apnea Risk Assmt BiPAP/CPAP Ordered for Home Use : Yes Hx of Obstructive Sleep Apnea Diagnosis : Yes BiPAP/CPAP Used at Home : No Reason BiPAP/CPAP Not Used at Home : doesn't have one, couldn't sleep with mask on Age over 50 Years Old : Yes Gender Male : No CHRISTOPHER MONTIEL RN - 04/23/2019 11:37 EST Aly Scale Aly Sensory Perception : No impairment Aly Moisture : Rarely moist Aly Activity : Walks frequently Aly Mobility : No limitation Aly Nutrition : Excellent Aly Friction and Shear : No apparent problem Aly Score : 23 CHRISTOPHER MONTIEL RN - 04/23/2019 11:37 EST Pain Assessment Pain Assessment : Initial assessment Pain Scale Used : 0-10 Scale CHRISTOPHER MONTIEL RN - 04/23/2019 11:37 EST Fall Risk Scales ABCs Fall Injury Risk Identification : None [place] Hx Falls Immediate/Within 3 Months : No [place] Secondary Diagnosis : No [place] Use of Ambulatory Aid : None [place] IV Therapy or IV Access : Yes [place] Gait/Transferring : Normal, bedrest, immobile [place]owitz Mental Status : Oriented to own ability [place]owitz Fall Risk Score : 20 [place] Fall Scale Risk Level : 0-24 Low Risk [place] Fall Interventions : Adequate lighting, Assistive devices within reach, Bed in low position, Personal items within reach, Reinforced to call for assistance before getting out of bed, Room free of clutter/spills CHRISTOPHER MONTIEL RN - 04/23/2019 11:37 EST Valuables and Belongings Valuables and Belongings : Clothing Clothing : Common streetwear Clothing Disposition : Bedside, With family CHRISTOPHER MONTIEL RN - 04/23/2019 11:37 EST Pain Scale Intensity : 3 CHRISTOPHER MONTIEL RN - 04/23/2019 11:37 EST Image 4 - Images currently included in the form version of this document have not been included in the text rendition version of the form. documented in this encounter Plan of Treatment Not on file documented as of this encounter Visit Diagnoses Not on filedocumented in this encounter
--- OUTSIDE RECORDS SUMMARY | 2024-02-20 09:22 | XMS_ITS | Patient Health Record ---
Author Organization [facility] Address [id number] [address] Care Team Providers Care Beater Operator Name Role Phone Paddy Ledesma DO Unavailable [phone] Allergies Allergen (clinical drug ingredient) Drug/Non Drug [...] Problem Status W/U Status Risk Notes Problem 79485017 Type 2 diabetes mellitus with other specified complication (E11.69) Active confirmed Problem 117436265 Gastroparesis (K31.84) Active confirmed I suspect that [...] and after review of her records. 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) Active confirmed Problem Drug-induced constipation (65955294) Drug induced constipation (K59.03) Active confirmed Problem 80108376 Incontinence of feces, unspecified fecal incontinence type (R15.9) Active confirmed Problem 12600316 Chronic constipation with overflow (K59.09) Active confirmed Plan Of Treatment No Information Insurance Providers Payer Name Payer Address Payer Phone Subscriber Number Group Number Insured Name Patient Relationship to Insured Coverage Start Date Coverage End Date [facility] [address] [address] [place], [place] [id number] FLORIAN DALY Self - patient is the insured Medical (General) History Medical History History ICD Code Diabetes mellitus, type II Hypertension Surgical History Surgery Date(Month/Year) Tubal Ligation spinal nerve sheath tumor
--- OUTSIDE RECORDS SUMMARY | 2024-02-20 09:22 | XMS_ITS | Encounter Summary ---
Author Organization [employer] Address [address] [place] [address] Care Team Providers Care Leather Finisher Name Role Phone Unavailable Primary Care Provider Unavailabl e Encounter Details Date Type Department Care Team (Late st Contact Info) Description 04/21/2019 Historic Encounter [address] [address] Provider, Luciano Bronson MD [...] Procedure Name Priority Date/Time Associated Diagnosis Comments POCT-CREATININE Routine 04/21/2019 9:37 AM EST documented in this encounter Results * POC-Creatinine (04/21/2019 9:37 AM EST) Creatinine POC 0.6 0.6 - 1.3 mg/dL 04/21/2019 2:37 PM [facility] eGFR 123 >=60 mL/min/1. 73m2 04/22/2019 12:00 AM [facility] eGFR NonAfrican 101 >=60 mL/min/1. 73m2 04/22/2019 12:00 AM [facility] Aircraft Structural Repairer [id number] 04/21/2019 2:37 PM [facility] Device SN [id number] 04/21/2019 2:37 PM [facility] Blood 04/21/2019 9:37 AM EST 04/22/2019 12:00 AM EST [facility] Historical Provider MD POINT OF CARE TEST OR DERABLES Final Result Performing Organization Address City/State/[facility] Co de Phone Number [facility] [address] [place] [address] documented in this encounter Visit Diagnoses Not on filedocumented in this encounter
--- OUTSIDE RECORDS SUMMARY | 2024-02-20 09:22 | XMS_ITS | Encounter Summary ---
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 Name Role Phone Unavailable Primary Care Provider Unavailabl e Encounter Details Date Type Department Care Team (Late st Contact Info) Description 04/23/2019 Historic Encounter [facility] [address] [place] [address] Erendira Joe MD [address] [place] [address] Social History Tobacco Use Types Packs/Day Years [...] Priority Date/Time Associated Diagnosis Comments MR SPINE LUMBAR WITH & WITHOUT CONTRAST ONE PLANE Routine 04/23/2019 2:53 PM EST documented in this encounter Results * MR spine lumbar with & without contrast one plane (04/23/2019 2:53 PM EST) Anatomical Region Laterality Modality Magnetic Resonan ce 04/23/2019 2:53 PM EST Narrative 04/24/2019 4:29 PM EST MRI OF THE LUMBAR SPINE WITHOUT AND WITH CONTRAST\.br\.br\INDICATION: Spinal mass.\.br\.br\TECHNIQUE: Multiplanar and multisequence imaging of the lumbar spine was\.br\obtained before and after the intravenous injection of 15 mL of\.br\MultiHance.\.br\.br\COMPARISON: None.\.br\.br\FINDINGS: There is normal alignment of the lumbar vertebral bodies.\.br\Vertebral body height is preserved. There are degenerative endplate\.br\changes at L4-L5. Marrow signal intensity is otherwise normal. The\.br\spinal cord ends at the level of T12-L1. There is normal signal\.br\intensity within the substance of the distal spinal cord. There is an\.br\intradural mass within the central canal extending from the level of the\.br\mid L3 vertebral body to the inferior endplate of L5. This mass measures\.br\8 cm in long axis. It is slightly expansile. On axial images, it\.br\measures approximately 2.7 x 2.0 cm at the level of L4. It is isointense\.br\to cord on T1-weighted imaging and it is isointense to mildly\.br\hyperintense to cord on T2-weighted imaging. After contrast\.br\administration, this homogeneously enhances. No acute paraspinal\.br\abnormality is identified.\.br\.br\L1-L2: There is a small central protrusion. There is no central or\.br\foraminal stenosis.\.br\.br\L2-L3: There is a central protrusion superimposed on mild disc\.br\osteophyte complex. There is mild central canal stenosis, but no\.br\foraminal narrowing.\.br\.br\L3-L4: There is mild disc osteophyte complex. There is no significant\.br\central or foraminal stenosis.\.br\.br\L4- L5: There is broad-based disc osteophyte complex. There is no central\.br\canal stenosis. There is moderate right foraminal narrowing, but no left\.br\foraminal narrowing.\.br\.br\L5-S1: There is broad-based disc osteophyte complex, asymmetric to the\.br\left. There is no central stenosis. There is severe left and\.br\lgrk-bh-igfjinjs right foraminal narrowing.\.br\.br\IMPRESSION: \.br\1. Homogeneously enhancing intradural mass extending from L3 to L5 as\.br\above. Differential considerations include myxopapillary ependymoma,\.br\schwannoma, and meningioma. Cannot exclude an intradural metastasis.\.br\2. Multilevel degenerative disc disease as above.\.br\.br\.br\.br\ ?? \.br\ Procedure Note ProviderAiyana MD - 08/29/2022 MRI OF THE LUMBAR SPINE WITHOUT AND WITH CONTRAST\.br\.br\INDICATION:Spinal mass.\.br\.br\TECHNIQUE: Multiplanar and multisequence imaging ofthe lumbar spine was\.br\obtained before and after the intravenousinjection of 15 mL of\.br\MultiHance.\.br\.br\COMPARISON: None.\.br\.br\FINDINGS: There isnormal alignment of the lumbar vertebral bodies.\.br\Vertebral body heightis preserved. There are degenerative endplate\.br\changes at L4-L5. Marrowsignal intensity is otherwise normal. The\.br\spinal cord ends at the level of T12-L1. There is normalsignal\.br\intensity within the substance of the distal spinal cord. Thereis an\.br\intradural mass within the central canal extending from thelevel of the\.br\mid L3 vertebral body to the inferior endplate of L5. This mass measures\.br\8 cm in longaxis. It is slightly expansile. On axial images, it\.br\measuresapproximately 2.7 x 2.0 cm at the level of L4. It is isointense\.br\tocord on T1-weighted imaging and it is isointense to mildly\.br\hyperintense to cord on T2-weighted imaging.After contrast\.br\administration, this homogeneously enhances. No acuteparaspinal\.br\abnormality is identified.\.br\.br\L1-L2: There is a smallcentral protrusion. There is no central or\.br\foraminal stenosis.\.br\.br\L2-L3: There is a centralprotrusion superimposed on mild disc\.br\osteophyte complex. There is mildcentral canal stenosis, but no\.br\foraminal narrowing.\.br\.br\L3-L4:There is mild disc osteophyte complex. There is no significant\.br\central or foraminalstenosis.\.br\.br\L4- L5: There is broad-based disc osteophyte complex.There is no central\.br\canal stenosis. There is moderate right foraminalnarrowing, but no left\.br\foraminal narrowing.\.br\.br\L5-S1: There is broad-based disc osteophyte complex,asymmetric to the\.br\left. There is no central stenosis. There is severeleft and\.br\veqq-ro-yxiaetnt right foraminalnarrowing.\.br\.br\IMPRESSION: \.br\1. Homogeneously enhancing intradural mass extending from L3 to L5 as\.br\above.Differential considerations include myxopapillaryependymoma,\.br\schwannoma, and meningioma. Cannot exclude an intraduralmetastasis.\.br\2. Multilevel degenerative disc disease as above.\.br\.br\.br\.br\ \.br\ us Erendira Joe MD IMG MRI ORDERABLES Final Result documented in this encounter Visit Diagnoses Not on filedocumented in this encounter
--- OUTSIDE RECORDS SUMMARY | 2024-02-20 09:22 | XMS_ITS | Encounter Summary ---
Author Organization [employer] Address [address] [place] [address] Care Team Providers Care Lead Technical Architect Name Role Phone Unavailable Primary Care Provider Unavailabl e Encounter Details Date Type Department Care Team (Late st Contact Info) Description 04/15/2019 Historic Encounter [address] [address] Provider, Luciano Bronson MD Social [...] Name Priority Date/Time Associated Diagnosis Comments CBC (HEMOGRAM ONLY) Routine 04/15/2019 8 :32 AM EST documented in this encounter Results * (ABNORMAL) CBC (Hemogram only) (04/15/2019 8:32 AM EST) WBC 7.8 4.5 - 10.5 K/uL 04/15/2019 2:35 PM EST RBC 5.73(H) 3.93 - 5.22 Million/uL 04/15/2019 2:35 PM EST Hgb 16.7(H) 11.2 - 15.7 g/dL 04/15/2019 2:35 PM EST Hct 51.7(H) 34.1 - 44.9 % 04/15/2019 2:35 PM EST MCV 90.2 79.0 - 94.8 fL 04/15/2019 2:35 PM EST MCH 29.1 25.6 - 32.2 pg 04/15/2019 2:35 PM EST MCHC 32.3 32.2 - 36.5 Gram/dL 04/15/2019 2:35 PM EST RDW 13.2 11.7 - 14.9 % 04/15/2019 2:35 PM EST Platelet Count 287 163 - 369 K/uL 04/15/2019 2:35 PM EST MPV 11.2 9.4 - 12.4 fL 04/15/2019 2:35 PM EST Slide Review No 04/15/2019 2:41 PM EST Blood 04/15/2019 8:32 AM EST 04/15/2019 2:31 PM EST [facility] Historical Provider LAB BLOOD ORDERABLES Final Result [facility] [address] [phone] documented in this encounter Visit Diagnoses Not on filedocumented in this encounter
--- OUTSIDE RECORDS SUMMARY | 2024-02-20 09:22 | XMS_ITS | Encounter Summary ---
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 Name Role Phone Unavailable Primary Care Provider Unavailabl e Encounter Details Date Type Department Care Team (Late st Contact Info) Description 04/15/2019 Historic Encounter [address] [address] Provider, Luciano Bronson MD Social [...] Procedure Name Priority Date/Time Associated Diagnosis Comments HEPATIC FUNCTION PANEL 6 Routine 04/15/2019 8:32 AM EST documented in this encounter Results * (ABNORMAL) HEPATIC FUNCTION PANEL 6 (04/15/2019 8:32 AM EST) Albumin Level 3.7 3.4 - 5.0 Gram/dL 04/15/2019 3:06 PM EST Globulin 4.4 1.5 - 4.5 Gram/dL 04/15/2019 3:06 PM EST Protein, Total 8.1 6.4 - 8.2 Gram/dL 04/15/2019 3:06 PM EST A/G Ratio 0.8(L) 1.1 - 2.5 04/15/2019 3:06 PM EST ALT 53 13 - 56 Units/Lit er 04/15/2019 3:06 PM EST Comment: \.br\[employer] has become aware of sulfasalazine and sulfapyridine [...] occur prior to administration of the drug. AST 29 5 - 37 Units/Lit er 04/15/2019 3:06 PM EST Comment: \.br\[employer] has become aware of sulfasalazine and sulfapyridine [...] occur prior to administration of the drug. Alk Phos 181(H) 27 - 136 Units/Lit er 04/15/2019 3:06 PM EST Bilirubin, Total 0.4 0.2 - 1.2 mg/dL 04/15/2019 3:06 PM EST Bilirubin Direct <0.1 0.0 - 0.2 mg/dL 04/15/2019 3:06 PM EST Blood 04/15/2019 8:32 AM EST 04/15/2019 2:31 PM EST [facility] Historical Provider MD PATHOLOGY/CYTOLOGY OR DERABLES Final Result Performing Organization Address City/State/[facility] Co de Phone Number [facility] [address] [phone] documented in this encounter Visit Diagnoses Not on filedocumented in this encounter
--- NOTE | 2024-02-20 09:47 | MR_ITS ---
APPROVED REPORT Mass Spectroscopist: CLINICAL INDICATION HFpEF evaluation TECHNIQUE Image Acquisition: Cardiac magnetic resonance (CMR) was performed on Siemens Espree MRI 1.5T scanner. Software platform sequences were performed using the Siemens DataSift MR B19 platform. A set of three-plane, low-resolution, large [id number] localizers were initially acquired. Then axial, coronal, sagittal TrueFISP, as well as axial HASTE images, were obtained. These were followed by gated TrueFISP breathold cinematic sequences obtained in the short axis with 8 mm slices and 2 mm gaps, 2-chamber (vertical long axis), 3-chamber, 4-chamber (horizontal long axis). A bolus of contrast was injected intravenously with first-pass sequences obtained in the short axis and four-chamber planes. After approximately 10 minutes, a TI bank guard sequence was performed to determine the optimal TI time. Using the optimized TI time, delayed contrast enhancement segmented inversion???recovery TurboFLASH sequences were obtained in the short axis, 2-chamber, 3-chamber, and 4-chamber projections. 2D-velocity phase mapping was performed. Functional parameters were calculated by offline analysis on an independent workstation ([employer] Platform, [employer]). Contrast: ProHance??? (Gadoteridol) FINDINGS MORPHOLOGY AND FUNCTION Left ventricle: The left ventricle is normal in size. The indexed left ventricular end-diastolic volume (LVEDVi) is 56 ml/m2 (reference range 57-105 ml/m2 in males, 56-96 ml/m2 in females). Normal left ventricular systolic function is present. There is increased left ventricular wall thickness (maximum 12.2 mm). There are no regional wall motion abnormalities noted. LVEF is calculated at 58.3% (reference range 57-77%). Right ventricle: The right ventricle is normal in size. The indexed right ventricular end-diastolic volume (RVEDVi) is 49 ml/m2 (reference range 61-121 ml/m2 in males, 48-112 ml/m2 in females). Normal right ventricular systolic function is present. RVEF is calculated at 52.1% (reference range 52-72% in males, 51-71% in females). Atria: The left atrium is normal in size. The maximum indexed left atrial volume is 26 ml/m2 (reference range 26-52 ml/m2 in males, 27-53 ml/m2 in females). The right atrium is normal in size. The maximum indexed right atrial volume is 18 ml/m2 (reference range 18-90 ml/m2). Aorta: The diameter of the aortic annulus is normal, measuring 21 mm (coronal view reference range 21-30 mm in males, 19-27 mm in females). The diameter of the aortic sinus is normal, measuring 29 mm (coronal view reference range 25-42 mm in males, 24-36 mm in females). The diameter of the sinotubular junction is normal, measuring 27 mm (coronal view reference range 18-32 mm in males, 18-28 mm in females). The diameters of the ascending and descending thoracic aorta are normal. Main pulmonary artery: The main pulmonary artery diameter is normal. Pericardium: The pericardial thickness is normal. The pericardial thickness measures 1.1 mm (normal < 4.0 mm). There is no pericardial effusion. VALVES The valvular morphologies in the visualized sequences appear normal. There is no significant valvular stenosis or regurgitation of the mitral, aortic, tricuspid, or pulmonic valve noted visually. Systolic anterior motion of the mitral valve is not visualized. Ratio of pulmonary to systemic flow, Qp:Qs ratio = 0.9 (normal < or = 1.2, hemodynamically significant shunt > 1.5), demonstrating no evidence of hemodynamically significant shunt. TISSUE CHARACTERIZATION Resting Perfusion: Normal myocardial blood flow at rest. No evidence of resting hypoperfusion. Myocardial Fibrosis and/or edema: Normal gadolinium kinetics are present. No evidence of late gadolinium enhancement is noted, consistent with absence of myocardial scarring, infarction, or necrosis. T2-weighted imaging demonstrates no evidence of myocardial edema or inflammation. OTHER No other significant findings are noted. However, this exam is focused on the cardiac structure and function. IMPRESSION Normal LV size with normal LV systolic function. LVEDVi= 56 ml/m2 and LVEF= 58.3%. Mild increase in LV wall thickness (max 12.2 mm) Normal RV size with normal RV systolic function. RVEDVi= 49 ml/m2 and RVEF= 52.1%. No atrial enlargement. No CMR evidence of myocardial scarring, infarction, or necrosis. No evidence of myocardial edema or inflammation. Perfusion analysis demonstrates normal blood flow at rest with no evidence of resting hypoperfusion. Ratio of pulmonary to systemic flow, Qp:Qs ratio = 0.9 (normal < or = 1.2, hemodynamically significant shunt > 1.5), demonstrating no evidence of hemodynamically significant shunt. This CMR demonstrates normal biventricular systolic size and function. No evidence of infiltrative cardiomyopathy. No evidence of myocardial scarring, infarction, or inflammation. COMPARISON None CRITICAL RESULT None COMMUNICATION The above findings were communicated with the patient at the time of her routine outpatient cardiology clinic visit prior to dictation of this report. The findings of this cardiac MR were reviewed, reported, and signed by Fred Rosales MD (Insurance Verification Specialist). Conclusion Electronically signed by : Amita Rosales MD 04/09/2024 15:00:44
[2024-02-20] MEDS: SODIUM CHLORIDE 0.9% 10ML SYR (RAD ONLY) 10 ML IV (11:49)
[2024-02-20] MEDS: GADOTERIDOL INJ 20ML SYRINGE 19 ML IV (11:49)
[2024-02-20] MEDS: SODIUM CHLORIDE 0.9% 50ML BAG 25 ML IV (11:49)
== END 2024-02-20 23:59 | disposition home or self-care (01) ==
LOC: RT 09:05
PROVIDERS: PCP Nurse Practitioner Family; Visit Provider Internal Medicine
DX: R60.0 Localized edema (principal); I11.0 Hypertensive heart disease with heart failure; I50.30 Unspecified diastolic (congestive) heart failure; R06.02 Shortness of breath; R73.9 Hyperglycemia, unspecified; E03.9 Hypothyroidism, unspecified; R07.89 Other chest pain; R40.0 Somnolence; E78.2 Mixed hyperlipidemia
CPT/HCPCS: 75561; 93970; A9576

== ENCOUNTER 2024-03-06 07:47 | Outpatient (CLI) | payer MEDICARE, SELFPAY ==
--- NOTE | 2024-03-06 07:48 | NM_ITS ---
APPROVED REPORT Dry Roller: Procedure: 99mTc-PYP Cardiac Amyloidosis Imaging Clinical Indication: Heart failure, increased LV wall thickness Protocol: The patient received 25.9mCi 99mTc-PYP intravenously. Planar and SPECT imaging was performed approximately 3 hours post injection. Planar images included anterior, left lateral and [id number] projections. Findings: Visual interpretation: Planar and SPECT images were reviewed The overall quality of the study was good. Semi quantitative SPECT findings showed a grade 0. Impression: 1. Overall, the quality of the study was good. 2. Semi quantitative SPECT findings showed grade 0. 3. Overall interpretation of the findings is not suggestive of ATTR amyloidosis. This study and report were reviewed and signed by Fred Rosales MD (fire control technician b). Conclusion Electronically signed by : Amita Rosales MD 03/11/2024 00:08:29
[2024-03-06] MEDS: PYROPHOSPHATE CARDIAC (PYP);1 DOSE VIAL IV (09:40)
[2024-03-06] MEDS: SODIUM CHLORIDE 0.9% 10ML SYR (RAD ONLY) 10 ML IV (09:40)
== END 2024-03-06 23:59 | disposition home or self-care (01) ==
LOC: RAD 07:48
PROVIDERS: PCP Nurse Practitioner Family; Visit Provider Internal Medicine
DX: I50.30 Unspecified diastolic (congestive) heart failure (principal); R06.02 Shortness of breath; R73.9 Hyperglycemia, unspecified; R07.89 Other chest pain; R60.0 Localized edema; R40.0 Somnolence; E78.2 Mixed hyperlipidemia; E03.9 Hypothyroidism, unspecified; I11.0 Hypertensive heart disease with heart failure
CPT/HCPCS: 78800

== ENCOUNTER 2024-03-11 14:45 | Outpatient (CLI) | payer MEDICARE, SELFPAY ==
[2024-03-11 15:23] LABS: Basophils # 0.1 K/mm3 (0-0.2); Basophils % 0.9 % (0.1-2.0); Eosinophils # 0.1 K/mm3 (0.0-0.4); Eosinophils % 1.6 % (0.1-12.0); Hematocrit 43.9 % (37.0-47.0); Hemoglobin 14.5 g/dL (12.2-16.2); Lymphocytes # 1.6 K/mm3 (0.7-4.5); Lymphocytes % 22.8 % (10-50); Mean Corpuscular HGB Conc 32.9 g/dL (31.8-35.4); Mean Corpuscular Hemoglobin 28.4 pg (27.0-31.2); Mean Corpuscular Volume 86.4 fl (81-99); Mean Platelet Volume 8.9 fl (7.4-10.4); Monocytes # 0.4 K/mm3 (0.1-1.0); Neutrophils # 4.8 K/mm3 (1.8-7.8); Neutrophils % 69.6 % (37.0-80.0); Platelet Count 246 K/mm3 (142-424); Red Blood Count 5.09 M/mm3 (4.20-5.40); White Blood Count 6.9 K/mm3 (4.8-10.8)
[2024-03-11 16:21] LABS: Chloride 102 mmol/L (98-107); Sodium 136 mmol/L (136-145)
[2024-03-11 16:22] LABS: Potassium 4.4 mmoL/L (3.5-5.1)
[2024-03-11 16:24] LABS: Blood Urea Nitrogen 24 mg/dl (7-17); Estimated Glomerular Filt Rate 100 ml/min (>60); GFR (African American) 121 ML/MIN (>60)
[2024-03-11 16:25] LABS: Anion Gap 4.4 mEq/L (5-15); Calcium 10.2 mg/dl (8.4-10.2); Carbon Dioxide 34 mmol/L (22.0-30.0); Glucose 138 mg/dl (74-100)
== END 2024-03-11 23:59 | disposition home or self-care (01) ==
LOC: LAB 14:45
PROVIDERS: PCP Nurse Practitioner Family; Visit Provider Internal Medicine
DX: I51.89 Other ill-defined heart diseases (principal)
CPT/HCPCS: 36415; 80048; 85025

== ENCOUNTER 2024-05-09 13:30 | Outpatient (CLI) | payer MEDICARE, SELFPAY ==
[2024-05-09 13:11] LABS: Creatinine,Urine Random 20 mg/dL (Not Estab.)
[2024-05-09 13:19] LABS: Albumin Level 4.6 g/dl (3.5-5.0); Chloride 96 mmol/L (98-107); Hemoglobin A1C 8.5 % (4.0-6.0); Microalbumin < 6.000 mg/L (0-16.7); Sodium 138 mmol/L (136-145)
[2024-05-09 13:20] LABS: Potassium 4.3 mmoL/L (3.5-5.1)
[2024-05-09 13:22] LABS: Alanine Aminotransferase 84 U/L (12-78); Albumin/Globulin Ratio 1.7 (1.1-1.8); Alkaline Phosphatase 195 U/L (38-126); Anion Gap 10.3 mEq/L (5-15); Aspartate Amino Transferase 63 U/L (14-36); Bilirubin,Total 0.5 mg/dl (0.2-1.3); Blood Urea Nitrogen 14 mg/dl (7-17); Carbon Dioxide 36 mmol/L (22.0-30.0); Estimated Glomerular Filt Rate 123 ml/min (>60); GFR (African American) 149 ML/MIN (>60); Globulin 2.7 g/dL (1.3-3.2); Total Protein,Serum 7.3 g/dl (6.3-8.2); Triglycerides 144 mg/dl (30-150); VLDL Cholesterol 29 mg/dL (0-40)
[2024-05-09 13:23] LABS: Calcium 9.7 mg/dl (8.4-10.2); Chol/HDL Ratio 5.6 (1-3.5); Cholesterol 257 mg/dl (140-200); Glucose 231 mg/dl (74-100); HDL Cholesterol 46 mg/dl (40-60)
[2024-05-09 13:34] LABS: Direct LDL Cholesterol 178.46 mg/dL (100-129)
[2024-05-09 13:41] LABS: Free T4 (Free Thyroxine) 1.39 ng/dl (0.78-2.19)
[2024-05-09 13:54] LABS: Thyroid Stimulating Hormone 2.55 uIU/mL (0.465-4.68)
[2024-05-09 13:58] LABS: Ferritin 64.8 ng/ml (11.1-264)
[2024-05-09 14:32] LABS: Vitamin B12 > 1000 pg/mL (239-931)
[2024-05-10 10:13] LABS: Triiodothyronine (T3) Free 3.5 pg/mL (2.0-4.4)
== END 2024-05-09 23:59 | disposition home or self-care (01) ==
LOC: LAB.DROPOF 13:31
PROVIDERS: PCP Nurse Practitioner Family; Visit Provider Nurse Practitioner Family
DX: E11.65 Type 2 diabetes mellitus with hyperglycemia (principal); D64.9 Anemia, unspecified; E03.9 Hypothyroidism, unspecified; E78.2 Mixed hyperlipidemia; E66.811 Obesity, class 1; K31.84 Gastroparesis; K76.0 Fatty (change of) liver, not elsewhere classified; K59.00 Constipation, unspecified
CPT/HCPCS: 80053; 80061; 82043; 82570; 82607; 82728; 83036; 84439; 84443; 84481

== ENCOUNTER 2024-06-02 11:08 | Outpatient (CLI) | payer MEDICARE, SELFPAY | END 2024-06-02 23:59 | disposition home or self-care (01) | LOC: LAB.DROPOF 06-04 11:08 | PROVIDERS: PCP Nurse Practitioner Family; Visit Provider Nurse Practitioner Family | DX: R07.0 Pain in throat (principal); R13.10 Dysphagia, unspecified | CPT/HCPCS: 87070 ==

== ENCOUNTER 2024-06-20 11:07 | Outpatient (CLI) | payer MEDICARE, SELFPAY ==
[2024-06-20 12:20] LABS: Anion Gap 9.4 mEq/L (5-15); Blood Urea Nitrogen 18 mg/dl (7-17); Carbon Dioxide 32 mmol/L (22.0-30.0); Chloride 103 mmol/L (98-107); Estimated Glomerular Filt Rate 100 ml/min (>60); GFR (African American) 121 ML/MIN (>60); Glucose 175 mg/dl (74-100); Potassium 4.4 mmoL/L (3.5-5.1); Sodium 140 mmol/L (136-145)
[2024-06-20 13:44] LABS: Chloride 103 mmol/L (98-107)
[2024-06-20 13:45] LABS: Albumin Level 4.7 g/dl (3.5-5.0); Potassium 4.4 mmoL/L (3.5-5.1); Sodium 141 mmol/L (136-145)
[2024-06-20 13:47] LABS: Anion Gap 10.4 mEq/L (5-15); Blood Urea Nitrogen 17 mg/dl (7-17); Carbon Dioxide 32 mmol/L (22.0-30.0); Estimated Glomerular Filt Rate 100 ml/min (>60); GFR (African American) 121 ML/MIN (>60)
[2024-06-20 13:48] LABS: Alanine Aminotransferase 81 U/L (12-78); Albumin/Globulin Ratio 1.5 (1.1-1.8); Alkaline Phosphatase 162 U/L (38-126); Aspartate Amino Transferase 110 U/L (14-36); Bilirubin,Total 0.7 mg/dl (0.2-1.3); Globulin 3.1 g/dL (1.3-3.2); Glucose 176 mg/dl (74-100); Total Protein,Serum 7.8 g/dl (6.3-8.2)
== END 2024-06-20 23:59 | disposition home or self-care (01) ==
LOC: LAB 11:08
PROVIDERS: Internal Medicine Endocrinology, Diabetes & Metabolism; PCP Nurse Practitioner Family; Visit Provider Internal Medicine
DX: E11.65 Type 2 diabetes mellitus with hyperglycemia (principal); G47.33 Obstructive sleep apnea (adult) (pediatric); R06.02 Shortness of breath; I50.30 Unspecified diastolic (congestive) heart failure
CPT/HCPCS: 36415; 80048; 80053

== ENCOUNTER 2024-07-15 14:40 | Outpatient (CLI) | payer MEDICARE, SELFPAY ==
[2024-07-15 15:00] LABS: Basophils # 0.1 K/mm3 (0-0.2); Basophils % 0.7 % (0.1-2.0); Eosinophils # 0.1 K/mm3 (0.0-0.4); Eosinophils % 1.3 % (0.1-12.0); Hematocrit 42.4 % (37.0-47.0); Hemoglobin 13.7 g/dL (12.2-16.2); Lymphocytes # 1.7 K/mm3 (0.7-4.5); Lymphocytes % 24.8 % (10-50); Mean Corpuscular HGB Conc 32.3 g/dL (31.8-35.4); Mean Corpuscular Hemoglobin 28.1 pg (27.0-31.2); Mean Corpuscular Volume 87.1 fl (81-99); Mean Platelet Volume 10.7 fl (7.4-10.4); Monocytes # 0.4 K/mm3 (0.1-1.0); Monocytes % 5.8 % (1.7-9.3); Neutrophils # 4.5 K/mm3 (1.8-7.8); Neutrophils % 67.1 % (37.0-80.0); Nucleated Red Blood Cells # 0 10^3/uL; Nucleated Red Blood Cells % 0 %; Platelet Count 268 K/mm3 (142-424); Red Blood Count 4.87 M/mm3 (4.20-5.40); Red Cell Distribution Width 13.7 % (11.5-17.5); White Blood Count 6.7 K/mm3 (4.8-10.8)
[2024-07-15 15:37] LABS: Anion Gap 12.3 mEq/L (5-15); Blood Urea Nitrogen 16 mg/dl (7-17); Calcium 9.5 mg/dl (8.4-10.2); Carbon Dioxide 33 mmol/L (22.0-30.0); Chloride 100 mmol/L (98-107); Estimated Glomerular Filt Rate 100 ml/min (>60); GFR (African American) 121 ML/MIN (>60); Glucose 212 mg/dl (74-100); Magnesium 1.9 mg/dl (1.6-2.3); Potassium 4.3 mmoL/L (3.5-5.1); Sodium 141 mmol/L (136-145)
[2024-07-17 14:12] LABS: Albumin, U 4.5 ug/mL (Not Estab.); Albumin/Creatinine Ratio 6 mg/g creat (0-29); Creatinine, Urine 73.2 mg/dL (Not Estab.)
== END 2024-07-15 23:59 | disposition home or self-care (01) ==
LOC: LAB 14:40
PROVIDERS: PCP Nurse Practitioner Family; Visit Provider Internal Medicine
DX: R73.9 Hyperglycemia, unspecified (principal); E03.9 Hypothyroidism, unspecified; I11.0 Hypertensive heart disease with heart failure; I50.30 Unspecified diastolic (congestive) heart failure; R42 Dizziness and giddiness; E78.5 Hyperlipidemia, unspecified
CPT/HCPCS: 36415; 80048; 82043; 82570; 83735; 85025

== ENCOUNTER 2024-07-21 08:21 | Day surgery (SDC) | payer MEDICARE, SELFPAY ==
--- NOTE | 2024-07-21 07:03 | IR_ITS ---
APPROVED REPORT Patient Location: Outpatient PROCEDURES Right heart catheterization INDICATION Congestive heart failure, Pulmonary hypertension Informed consent was obtained prior to the procedure. COMPLICATIONS NONE Estimated Blood Loss: LESS THAN 10 ML TECHNIQUE One percent lidocaine was used to anesthetize the right anterior aspect of the neck. A assistant sales manager needle was used to identify the right internal jugular vein. Following this a larger cannulation needle was used to cannulate the right internal jugular vein and a wire was passed into the vein. Prior to the 7 Indonesian sheath being inserted the wire was confirmed under fluoroscopic guidance to be in the inferior vena cava. A 7 Indonesian sheath was introduced and a Dwight-Bhanu catheter was floated using hemodynamic waveforms in the pulmonary artery, right ventricle , and right atrium. Saturations were obtained in the pulmonary artery and the right atrium. At the end of the procedure the patient was transferred to the postop holding area in stable condition for sheath removal. ANGIOGRAPHIC RESULTS Right atrial pressure 25 mmHg Right ventricular pressure 55/25 mmHg Pulmonary artery pressure 50/40 mmHg Pulm artery occlusion pressure 35 mmHg Right atrial saturation 58% Pulmonary artery saturation 60% Aortic saturation 97% Hemoglobin 14 Cardiac output 3.4 L/min IMPRESSION Severe pulmonary hypertension Biventricular elevated filling pressures PLAN 1. Will change Lasix 40 twice daily to Bumex 1 mg twice daily 2. Patient advised to discontinue diet Mountain Dew 3. Patient advised to restrict salt and fluid intake 4. Follow-up with Dr. Barrera in 1 week Electronically signed by : Davy Grace MD 07/21/2024 12:33:02
[2024-07-21 08:26] VITALS: BMI 35.1
[2024-07-21 08:56] VITALS: BP 151/90; PULSE 99; RESP 16; TEMP 36.6; O2SAT 93
[2024-07-21 08:57] LABS: Basophils # 0.1 K/mm3 (0-0.2); Basophils % 0.7 % (0.1-2.0); Eosinophils # 0.1 Kmm3 (0.0-0.4); Eosinophils % 1.5 % (0.1-12.0); Hematocrit 44.4 % (37.0-47.0); Hemoglobin 14.7 g/dL (12.2-16.2); Lymphocytes # 1.7 K/mm3 (0.7-4.5); Lymphocytes % 25.4 % (10-50); Mean Corpuscular HGB Conc 33.1 g/dL (31.8-35.4); Mean Corpuscular Hemoglobin 29.4 pg (27.0-31.2); Mean Corpuscular Volume 88.8 fl (81-99); Mean Platelet Volume 10.6 fl (7.4-10.4); Monocytes # 0.4 K/mm3 (0.1-1.0); Monocytes % 5.8 % (1.7-9.3); Neutrophils # 4.5 K/mm3 (1.8-7.8); Neutrophils % 66.2 % (37.0-80.0); Nucleated Red Blood Cells # 0 10^3/uL; Nucleated Red Blood Cells % 0 %; Platelet Count 274 K/mm3 (142-424); Red Cell Distribution Width 13.6 % (11.5-17.5); Red Cell Distribution Width-SD 44.3 fL; White Blood Count 6.9 K/mm3 (4.8-10.8)
[2024-07-21 09:07] LABS: Anion Gap 11.8 mEq/L (5-15); Blood Urea Nitrogen 14 mg/dl (7-17); Calcium 9.4 mg/dl (8.4-10.2); Carbon Dioxide 31 mmol/L (22.0-30.0); Chloride 101 mmol/L (98-107); Creatinine Clearance Estimated 75 mL/min (50-200); Estimated Glomerular Filt Rate 159 ml/min (>60); GFR (African American) 193 ML/MIN (>60); Glucose 196 mg/dl (74-100); Potassium 3.8 mmoL/L (3.5-5.1); Sodium 140 mmol/L (136-145)
[2024-07-21] MEDS: HEPARIN 1,000 UNITS/500ML NS (CATH LAB) 3000 UNIT IV (10:36)
[2024-07-21] MEDS: 0.9 % SODIUM CHLORIDE 500 ML 25 ML IV (10:36)
[2024-07-21] MEDS: LIDOCAINE 1% 10ML MDV 10 ML IJ (10:36)
[2024-07-21] MEDS: FENTANYL 100MCG/2ML VIAL 50 MCG IV (10:37)
[2024-07-21] MEDS: MIDAZOLAM HCL 1MG/ML 5ML VIAL 1 MG IV (10:37)
[2024-07-21] MEDS: diphenhydrAMINE 50MG/ML VIAL 50 MG IV (10:37)
[2024-07-21 11:11] VITALS: BP 127/80; PULSE 94; PULSE 96; RESP 20; O2SAT 93
[2024-07-21 11:20] VITALS: BP 118/67; PULSE 89; RESP 20; O2SAT 90
[2024-07-21 11:25] VITALS: BP 120/72; PULSE 88; RESP 20; O2SAT 91
[2024-07-21 11:30] VITALS: BP 125/72; PULSE 86; RESP 20; O2SAT 91
[2024-07-21 11:38] LABS: CATHL Arterial O2 SAT 64.6 % (90-100); CATHL Venous O2 SAT 58.9 % (75-80)
[2024-07-21 12:00] VITALS: BP 118/73; PULSE 86; RESP 20; O2SAT 96
--- NOTE | 2024-07-21 13:13 | SUR.PHASEII ---
Pt educated to d/c meloxicam d/t Dr Grace order, pt states she is not stopping that medication states I have to have it for my back d/c on med list. Pt states she will speak to Dr Levi about it on sunday but is not stopping the medicine.
== END 2024-07-21 12:23 | disposition home or self-care (01) ==
LOC: CATHLAB 08:21
PROVIDERS: PCP Nurse Practitioner Family; Visit Provider Internal Medicine
DX: I27.20 Pulmonary hypertension, unspecified (principal); I50.30 Unspecified diastolic (congestive) heart failure; R60.9 Edema, unspecified; R06.02 Shortness of breath; I11.0 Hypertensive heart disease with heart failure; E11.65 Type 2 diabetes mellitus with hyperglycemia; E78.5 Hyperlipidemia, unspecified; Z91.040 Latex allergy status; Z88.8 Allergy status to other drugs, medicaments and biological substances; Z79.899 Other long term (current) drug therapy; Z79.4 Long term (current) use of insulin; G47.33 Obstructive sleep apnea (adult) (pediatric)
CPT/HCPCS: 80048; 82810; 85025; 93451; 99152; 99153; C1751; C1894; J1200; J1644; J3010

== ENCOUNTER 2024-08-06 09:40 | Outpatient (CLI) | payer MEDICARE, SELFPAY ==
[2024-08-06 15:07] LABS: Alanine Aminotransferase 40 U/L (12-78); Albumin Level 4.4 g/dl (3.5-5.0); Albumin/Globulin Ratio 1.5 (1.1-1.8); Alkaline Phosphatase 166 U/L (38-126); Anion Gap 8.3 mEq/L (5-15); Aspartate Amino Transferase 43 U/L (14-36); Bilirubin,Total 0.5 mg/dl (0.2-1.3); Blood Urea Nitrogen 16 mg/dl (7-17); Calcium 9.4 mg/dl (8.4-10.2); Carbon Dioxide 34 mmol/L (22.0-30.0); Chloride 103 mmol/L (98-107); Estimated Glomerular Filt Rate 123 ml/min (>60); GFR (African American) 149 ML/MIN (>60); Globulin 2.9 g/dL (1.3-3.2); Glucose 110 mg/dl (74-100); Potassium 4.3 mmoL/L (3.5-5.1); Sodium 141 mmol/L (136-145); Total Protein,Serum 7.3 g/dl (6.3-8.2)
[2024-08-06 15:21] LABS: Creatinine,Urine Random 17 mg/dL (Not Estab.)
[2024-08-06 15:24] LABS: Free T4 (Free Thyroxine) 1.21 ng/dl (0.78-2.19)
[2024-08-06 15:36] LABS: Microalbumin < 6.000 mg/L (0-16.7)
[2024-08-06 15:37] LABS: Thyroid Stimulating Hormone 2.89 uIU/mL (0.465-4.68)
[2024-08-06 23:19] LABS: Hemoglobin A1C 7.2 % (4.0-6.0)
--- OUTSIDE RECORDS SUMMARY | 2024-08-07 11:25 | XMS_ITS | Data Portability ---
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 Plan of Treatment Reminders Order Date Submit Date Provider Last Modified By Organization Details Last Modified Time Details Appointments RECHECK 2024 01:30P M SHABANA LAM PA-C Not available Not available Not available Lab urinalysi s panel, auto 2024 025 [email or web address] [facility], [address], [place], [address], 04/30/2024 13:50:54 urinalysi s panel, auto 2022 023 [email or web address] [facility], [address], [place], [address], 01/10/2023 23:56:51 urinalysi s panel, auto 2022 023 [facility], [address], [place], [address], 05/16/2022 10:24:13 culture, urine 2022 023 [email or web address] [facility], [address] [place] [address] [place], [address], 05/16/2022 10:24:13 urinalysi s panel, auto 2021 022 [email or web address] [facility], [address], [place], [address], 11/08/2021 14:43:13 Referral None recorded. Procedures None recorded. Surgeries None recorded. Imaging None recorded. Medication Orders cefuroxim e axetil 500 mg tablet 2024 025 [email or web address] [facility], [address], [place], [place], [id number], 04/30/2024 13:50:55 bethanech ol chloride 50 mg tablet 2024 025 FRITZ [facility], [address], [address], [place], [place], [id number], 04/30/2024 13:50:55 cefuroxim e axetil 500 mg tablet 2022 023 [email or web address] [facility], [address], [place], [place], [id number], 04/30/2024 13:26:12 Patient TargetsNo targets recorded. Patient Instructions Encounter Date Encounter Id Patient Instructions Last Modified By Organization Details Last Modified Time 11/08/2021 [id number] learning about h ealthy weight breana Not available 11/08/2021 14:43:13 06/26/2024 [id number] 1. Laryngoscopy flex performed in office today. Full risks, complications, and benefits of non-operative intervention have been thoroughly discussed. Understanding was expressed, informed consent given, and we will proceed with the discussed treatment plan. There were no questions for me at the end of the office visit. 2. Continue taking omeprazole 40mg every morning 3. Suggest adding pepcid at night 4. Advised patient to discuss taking omeprazole both AM/PM with financial reporting accountant 5. Advised patient that singing can worsen acid reflux 6. F/u prn - pt will call [facility] Not available 06/26/2024 11:49:30 Reason for Referral None Reported. Results Created Date Observation Date Name Description Value Unit Range Abnormal Flag Note LastModifiedBy Organization Detail LastModifiedTime 11/09/19 22 11/08/2021 urina lysis panel , auto Unknown Analyte Clean Catch Not Available [facility] [address], [place], [address], 11/08/2021 14:26:03 11/09/19 22 11/08/2021 urina lysis panel , auto Unknown Analyte Yellow Not Available [facility] [address], [place], [address], 11/08/2021 14:26:03 11/09/19 22 11/08/2021 urina lysis panel , auto Unknown Analyte Cloudy Not Available [facility] [address], [place], [address], 11/08/2021 14:26:03 11/09/19 22 11/08/2021 urina lysis panel , auto Unknown Analyte 1.015 Not Available [facility] [address], [place], [address], 11/08/2021 14:26:03 11/09/19 22 11/08/2021 urina lysis panel , auto Unknown Analyte 1.003- 1.035 Not Available [facility] [address], [place], [address], 11/08/2021 14:26:03 11/09/19 22 11/08/2021 urina lysis panel , auto Unknown Analyte 5.0 Not Available [facility] [address], [place], [address], 11/08/2021 14:26:03 11/09/19 22 11/08/2021 urina lysis panel , auto Unknown Analyte 5.0-8. 0 Not Available [facility] [address], [place], [address], 11/08/2021 14:26:03 11/09/19 22 11/08/2021 urina lysis panel , auto Unknown Analyte Negati ve Not Available [facility] [address], [place], [address], 11/08/2021 14:26:03 11/09/19 22 11/08/2021 urina lysis panel , auto Unknown Analyte Negati ve Not Available [facility] [address], [place], [address], 11/08/2021 14:26:03 11/09/19 22 11/08/2021 urina lysis panel , auto Unknown Analyte Negati ve Not Available [facility] [address], [place], [address], 11/08/2021 14:26:03 11/09/19 22 11/08/2021 urina lysis panel , auto Unknown Analyte Negati ve Not Available [facility] [address], [place], [address], 11/08/2021 14:26:03 11/09/19 22 11/08/2021 urina lysis panel , auto Unknown Analyte Negati ve Not Available [facility] [address], [place], [address], 11/08/2021 14:26:03 11/09/19 22 11/08/2021 urina lysis panel , auto Unknown Analyte Negati ve Not Available [facility] [address], [place], [address], 11/08/2021 14:26:03 11/09/19 22 11/08/2021 urina lysis panel , auto Unknown Analyte Normal Not Available [facility] [address], [place], [address], 11/08/2021 14:26:03 11/09/19 22 11/08/2021 urina lysis panel , auto Unknown Analyte Normal Not Available [facility] [address], [place], [address], 11/08/2021 14:26:03 11/09/19 22 11/08/2021 urina lysis panel , auto Unknown Analyte Negati ve Not Available [facility] [address], [place], [address], 11/08/2021 14:26:03 11/09/19 22 11/08/2021 urina lysis panel , auto Unknown Analyte Negati ve Not Available [facility] [address], [place], [address], 11/08/2021 14:26:03 11/09/19 22 11/08/2021 urina lysis panel , auto Unknown Analyte Normal Not Available [facility] [address], [place], [address], 11/08/2021 14:26:03 11/09/19 22 11/08/2021 urina lysis panel , auto Unknown Analyte Normal 1 mg/dl Not Available [facility] [address], [place], [address], 11/08/2021 14:26:03 11/09/19 22 11/08/2021 urina lysis panel , auto Unknown Analyte Negati ve Not Available [facility] [address], [place], [address], 11/08/2021 14:26:03 11/09/19 22 11/08/2021 urina lysis panel , auto Unknown Analyte Negati ve Not Available [facility] [address], [place], [address], 11/08/2021 14:26:03 11/09/19 22 11/08/2021 urina lysis panel , auto Unknown Analyte Negati ve Not Available [facility] [address], [place], [address], 11/08/2021 14:26:03 11/09/19 22 11/08/2021 urina lysis panel , auto Unknown Analyte Negati ve Not Available [facility] [address], [place], [address], 11/08/2021 14:26:03 05/12/19 23 05/12/2022 URINE CULTU RE results Sourc e: CCUR Colle cted: 05/12 12:59 Site: Recei stephanie : 05/12 14:23 URINE CULTU RE FINAL 05/15 11:05 05/13 ISOLA TE #1 COLON Y COUNT : > 100,0 00 CFU/M L Proba ble Gram Negat marta Bacil faisal. ID and sensi tivit y in progr ess. 05/15 See [place] te Resul t(s) Below ISOLA DANIELE AND SENSI TIVIT Y RESUL TS [place] te 01 Esche rocio a coli __ [place] te ORG# 01 ANTIB IOTIC S LUIS ALBERTO INT __ Amox/ K Clav' ate(c ) <=8/4 S Ampic illin <=8 S Cefaz austin <=2 S Cefta zidim e <=1 S Ceftr iaxon e <=1 S Cefur oxime <=4 S Cipro floxa donny <=0.2 5 S Genta micin <=4 S Levof loxac in <=0.5 S Nitro furan toin <=32 S Piper acill in/Ta z <=16 S Tetra cycli ne <=4 S Tobra mycin <=2 S Trime th/Tinoco lfa <=2/3 8 S Not Available [facility] [address], [place], [address], 05/15/2022 11:05:53 05/12/19 23 05/12/2022 urina lysis panel , auto Unknown Analyte Clean Catch Not Available [facility] [address], [place], [address], 05/12/2022 12:40:54 05/12/19 23 05/12/2022 urina lysis panel , auto Unknown Analyte Yellow Not Available [facility] [address], [place], [address], 05/12/2022 12:40:54 05/12/19 23 05/12/2022 urina lysis panel , auto Unknown Analyte Clear Not Available [facility] [address], [place], [address], 05/12/2022 12:40:54 05/12/19 23 05/12/2022 urina lysis panel , auto Unknown Analyte 1.010 Not Available [facility] [address], [place], [address], 05/12/2022 12:40:54 05/12/19 23 05/12/2022 urina lysis panel , auto Unknown Analyte 1.003- 1.035 Not Available [facility] [address], [place], [address], 05/12/2022 12:40:54 05/12/19 23 05/12/2022 urina lysis panel , auto Unknown Analyte 7.0 Not Available [facility] [address], [place], [address], 05/12/2022 12:40:54 05/12/19 23 05/12/2022 urina lysis panel , auto Unknown Analyte 5.0-8. 0 Not Available [facility] [address], [place], [address], 05/12/2022 12:40:54 05/12/19 23 05/12/2022 urina lysis panel , auto Unknown Analyte Negati ve Not Available [facility] [address], [place], [address], 05/12/2022 12:40:54 05/12/19 23 05/12/2022 urina lysis panel , auto Unknown Analyte Negati ve Not Available [facility] [address], [place], [address], 05/12/2022 12:40:54 05/12/19 23 05/12/2022 urina lysis panel , auto Unknown Analyte Negati ve Not Available [facility] [address], [place], [address], 05/12/2022 12:40:54 05/12/19 23 05/12/2022 urina lysis panel , auto Unknown Analyte Negati ve Not Available [facility] [address], [place], [address], 05/12/2022 12:40:54 05/12/19 23 05/12/2022 urina lysis panel , auto Unknown Analyte Negati ve Not Available [facility] [address], [place], [address], 05/12/2022 12:40:54 05/12/19 23 05/12/2022 urina lysis panel , auto Unknown Analyte Negati ve Not Available [facility] [address], [place], [address], 05/12/2022 12:40:54 05/12/19 23 05/12/2022 urina lysis panel , auto Unknown Analyte Normal Not Available [facility] [address], [place], [address], 05/12/2022 12:40:54 05/12/19 23 05/12/2022 urina lysis panel , auto Unknown Analyte Normal Not Available [facility] [address], [place], [address], 05/12/2022 12:40:54 05/12/19 23 05/12/2022 urina lysis panel , auto Unknown Analyte Negati ve Not Available [facility] [address], [place], [address], 05/12/2022 12:40:54 05/12/19 23 05/12/2022 urina lysis panel , auto Unknown Analyte Negati ve Not Available [facility] [address], [place], [address], 05/12/2022 12:40:54 05/12/19 23 05/12/2022 urina lysis panel , auto Unknown Analyte Normal Not Available [facility] [address], [place], [address], 05/12/2022 12:40:54 05/12/19 23 05/12/2022 urina lysis panel , auto Unknown Analyte Normal 1 mg/dl Not Available [facility] [address], [place], [address], 05/12/2022 12:40:54 05/12/19 23 05/12/2022 urina lysis panel , auto Unknown Analyte Negati ve Not Available [facility] [address], [place], [address], 05/12/2022 12:40:54 05/12/19 23 05/12/2022 urina lysis panel , auto Unknown Analyte Negati ve Not Available [facility] [address], [place], [address], 05/12/2022 12:40:54 05/12/1905/12/2022 urina lysis panel , auto Unknown Analyte Negati ve Not Available [facility] [address], [place], [address], 05/12/2022 12:40:54 05/12/1905/12/2022 urina lysis panel , auto Unknown Analyte Negati ve Not Available [facility] [address], [place], [address], 05/12/2022 12:40:54 01/10/2001/09/2023 urina lysis panel , auto Unknown Analyte Clean Catch Not Available [facility] [address], [place], [address], 01/09/2023 16:33:55 01/10/2001/09/2023 urina lysis panel , auto Unknown Analyte Yellow Not Available [facility] [address], [place], [address], 01/09/2023 16:33:55 01/10/2001/09/2023 urina lysis panel , auto Unknown Analyte Clear Not Available [facility] [address], [place], [address], 01/09/2023 16:33:55 01/10/2001/09/2023 urina lysis panel , auto Unknown Analyte 1.010 Not Available [facility] [address], [place], [address], 01/09/2023 16:33:55 01/10/2001/09/2023 urina lysis panel , auto Unknown Analyte 1.003- 1.035 Not Available [facility] [address], [place], [address], 01/09/2023 16:33:55 01/10/2001/09/2023 urina lysis panel , auto Unknown Analyte 6.0 Not Available [facility] [address], [place], [address], 01/09/2023 16:33:55 01/10/2001/09/2023 urina lysis panel , auto Unknown Analyte 5.0-8. 0 Not Available [facility] [address], [place], [address], 01/09/2023 16:33:55 01/10/2001/09/2023 urina lysis panel , auto Unknown Analyte Negati ve Not Available [facility] [address], [place], [address], 01/09/2023 16:33:55 01/10/2001/09/2023 urina lysis panel , auto Unknown Analyte Negati ve Not Available [facility] [address], [place], [address], 01/09/2023 16:33:55 01/10/2001/09/2023 urina lysis panel , auto Unknown Analyte Negati ve Not Available [facility] [address], [place], [address], 01/09/2023 16:33:55 01/10/2001/09/2023 urina lysis panel , auto Unknown Analyte Negati ve Not Available [facility] [address], [place], [address], 01/09/2023 16:33:55 01/10/2001/09/2023 urina lysis panel , auto Unknown Analyte Negati ve Not Available [facility] [address], [place], [address], 01/09/2023 16:33:55 01/10/2001/09/2023 urina lysis panel , auto Unknown Analyte Negati ve Not Available [facility] [address], [place], [address], 01/09/2023 16:33:55 01/10/2001/09/2023 urina lysis panel , auto Unknown Analyte Normal Not Available [facility] [address], [place], [address], 01/09/2023 16:33:55 01/10/2001/09/2023 urina lysis panel , auto Unknown Analyte Normal Not Available [facility] [address], [place], [address], 01/09/2023 16:33:55 01/10/2001/09/2023 urina lysis panel , auto Unknown Analyte 15 mg/dl (Sm) Not Available [facility] [address], [place], [address], 01/09/2023 16:33:55 01/10/2001/09/2023 urina lysis panel , auto Unknown Analyte Negati ve Not Available [facility] [address], [place], [address], 01/09/2023 16:33:55 01/10/2001/09/2023 urina lysis panel , auto Unknown Analyte 1 mg/dl Not Available [facility] [address], [place], [address], 01/09/2023 16:33:55 01/10/20 23 01/09/2023 urina lysis panel , auto Unknown Analyte Normal 1 mg/dl Not Available [facility] [address], [place], [address], 01/09/2023 16:33:55 01/10/2001/09/2023 urina lysis panel , auto Unknown Analyte Negati ve Not Available [facility] [address], [place], [address], 01/09/2023 16:33:55 01/10/2001/09/2023 urina lysis panel , auto Unknown Analyte Negati ve Not Available [facility] [address], [place], [address], 01/09/2023 16:33:55 01/10/20 23 01/09/2023 urina lysis panel , auto Unknown Analyte Negati ve Not Available [facility] [address], [place], [address], 01/09/2023 16:33:55 01/10/20 23 01/09/2023 urina lysis panel , auto Unknown Analyte Negati ve Not Available [facility] [address], [place], [address], 01/09/2023 16:33:55 04/30/19 25 04/30/2024 urina lysis panel , auto Unknown Analyte Clean Catch Not Available [facility] [address], [place], [address], 04/30/2024 13:16:28 04/30/19 25 04/30/2024 urina lysis panel , auto Unknown Analyte Yellow Not Available [facility] [address], [place], [address], 04/30/2024 13:16:28 04/30/19 25 04/30/2024 urina lysis panel , auto Unknown Analyte Clear Not Available [facility] [address], [place], [address], 04/30/2024 13:16:28 04/30/19 25 04/30/2024 urina lysis panel , auto Unknown Analyte 1.005 Not Available [facility] [address], [place], [address], 04/30/2024 13:16:28 04/30/19 25 04/30/2024 urina lysis panel , auto Unknown Analyte 1.003- 1.035 Not Available [facility] [address], [place], [address], 04/30/2024 13:16:28 04/30/19 25 04/30/2024 urina lysis panel , auto Unknown Analyte 8.0 Not Available [facility] [address], [place], [address], 04/30/2024 13:16:28 04/30/19 25 04/30/2024 urina lysis panel , auto Unknown Analyte 5.0-8. 0 Not Available [facility] [address], [place], [address], 04/30/2024 13:16:28 04/30/19 25 04/30/2024 urina lysis panel , auto Unknown Analyte Negati ve Not Available [facility] [address], [place], [address], 04/30/2024 13:16:28 04/30/19 25 04/30/2024 urina lysis panel , auto Unknown Analyte Negati ve Not Available [facility] [address], [place], [address], 04/30/2024 13:16:28 04/30/19 25 04/30/2024 urina lysis panel , auto Unknown Analyte Negati ve Not Available [facility] [address], [place], [address], 04/30/2024 13:16:28 04/30/19 25 04/30/2024 urina lysis panel , auto Unknown Analyte Negati ve Not Available [facility] [address], [place], [address], 04/30/2024 13:16:28 04/30/19 25 04/30/2024 urina lysis panel , auto Unknown Analyte Negati ve Not Available [facility] [address], [place], [address], 04/30/2024 13:16:28 04/30/19 25 04/30/2024 urina lysis panel , auto Unknown Analyte Negati ve Not Available [facility] [address], [place], [address], 04/30/2024 13:16:28 04/30/19 25 04/30/2024 urina lysis panel , auto Unknown Analyte Normal Not Available [facility] [address], [place], [address], 04/30/2024 13:16:28 04/30/19 25 04/30/2024 urina lysis panel , auto Unknown Analyte Normal Not Available [facility] [address], [place], [address], 04/30/2024 13:16:28 04/30/19 25 04/30/2024 urina lysis panel , auto Unknown Analyte Negati ve Not Available [facility] [address], [place], [address], 04/30/2024 13:16:28 04/30/19 25 04/30/2024 urina lysis panel , auto Unknown Analyte Negati ve Not Available [facility] [address], [place], [address], 04/30/2024 13:16:28 04/30/19 25 04/30/2024 urina lysis panel , auto Unknown Analyte Normal Not Available [facility] [address], [place], [address], 04/30/2024 13:16:28 04/30/19 25 04/30/2024 urina lysis panel , auto Unknown Analyte Normal 1 mg/dl Not Available [facility] [address], [place], [address], 04/30/2024 13:16:28 04/30/19 25 04/30/2024 urina lysis panel , auto Unknown Analyte Negati ve Not Available [facility] [address], [place], [address], 04/30/2024 13:16:28 04/30/19 25 04/30/2024 urina lysis panel , auto Unknown Analyte Negati ve Not Available [facility] [address], [place], [address], 04/30/2024 13:16:28 04/30/19 25 04/30/2024 urina lysis panel , auto Unknown Analyte Negati ve Not Available [facility] [address], [place], [address], 04/30/2024 13:16:28 04/30/19 25 04/30/2024 urina lysis panel , auto Unknown Analyte Negati ve Not Available [facility] [address], [place], [address], 04/30/2024 13:16:28 Result Notes None recorded. Problems No Known Problems Procedures Surgical History Date Name Laterality Status Provider Name and Address Organization Details Recorded Time 06/27/19 Laryngoscopy Flex completed Shabana Schoff [facility] 06/26/2024 11:43:41 06/16/19 Post Void Residual; Ultrasound completed Deseriee Wyandanch [facility] 06/16/2019 13:32:32 Back Surgery completed Mare Osborn [facility] 05/23/2019 10:25:14 Imaging Results None recorded. Procedure Notes None recorded. Medical Equipment None Reported. Allergies Allergen ID Allergen Name Allergen Category Reaction Reaction Severity Criticality Documentation Date Start Date Code Code System Note Provider Name and Address Organization Details Recorded Time 016465 metformin medicatio n Not available Not available Not available 05/23/2019 6809 RxNorm Mare mandujano [facility] 0 10:24:00 736572 latex environme nt,medica tion Not available Not available Not available 06/26/2024 14026 91 RxNorm Mona Praria [facility] 5 11:22:49 526545 Product containin g penicilli n (product) medicatio n Not available Not available Not available 06/26/2024 31334 8001 SNOMED Mona Praria [facility] 5 11:23:05 891893 Product containin g beta adrenergi c receptor antagonis t (product) medicatio n Not available Not available Not available 06/26/2024 05917 009 SNOMED Mona Praria [facility] 5 11:23:21 534707 spironola ctone medicatio n Not available Not available Not available 06/26/2024 9997 RxNorm Mona Hendricksonpaul [facility] 11:23:46 Medications Name Sig Start Date Stop Date Status Note LastModified by Organization Details LastModified Time cyclobenz aprine 10 mg tablet TAKE 1 TABLET BY MOUTH EVERY 8 HOURS NEEDED FOR SPASM 06/26 completed Not Available Not Available Not Available amoxicill in 500 mg capsule TAKE 1 CAPSULE BY MOUTH THREE TIMES DAILY FOR 10 DAYS 04/30 completed Not Available Not Available Not Available atorvasta tin 40 mg tablet 04/30 completed Not Available Not Available Not Available metformin 500 mg tablet 11/08 completed Not Available Not Available Not Available ropinirol e 1 mg tablet active Not Available Not Available Not Available donepezil 5 mg tablet active Not Available Not Available Not Available trazodone 50 mg tablet 06/26 completed Not Available Not Available Not Available atorvasta tin 10 mg tablet TAKE 1 TABLET BY MOUTH ONCE DAILY AT NIGHT 04/30 completed Not Available Not Available Not Available azithromy donny 250 mg tablet TAKE 2 TABLETS BY MOUTH ON DAY 1, AND THEN TAKE 1 TABLET BY MOUTH ONCE A DAY ON DAY 2 THROUGH DAY 5 04/30 completed Not Available Not Available Not Available ibuprofen 800 mg tablet TAKE 1 TABLET BY MOUTH EVERY 8 HOURS NEEDED FOR PAIN active Not Available Not Available No t Available hydrocodo ne 5 mg-acetam inophen 325 mg tablet TAKE 1 TABLET BY MOUTH EVERY 6 HOURS NEEDED FOR PAIN active Not Available Not Available No t Available glipizide ER 10 mg tablet, extended release 24 hr 04/30 completed Not Available Not Available Not Available glipizide 10 mg tablet 04/30 completed Not Available Not Available Not Available isosorbid e mononitra te ER 30 mg tablet,ex tended release 24 hr TAKE 1 TABLET BY MOUTH ONCE DAILY active Not Available Not Available No t Available dexametha sone 6 mg tablet TAKE 1 TABLET BY MOUTH ONCE DAILY WITH BREAKFAS T FOR 5 DAYS 04/30 completed Not Available Not Available Not Available glipizide ER 5 mg tablet, extended release 24 hr 04/30 completed Not Available Not Available Not Available ciproflox acin 500 mg tablet Take 1 tablet every 12 hours by oral route for 14 days. 04/30 completed Not Available Not Available Not Available sulfameth oxazole 800 mg-trimet hoprim 160 mg tablet 05/23 completed Not Available Not Available Not Available omeprazol e 40 mg capsule,d elayed release active Not Available Not Available Not Available tramadol 50 mg tablet TAKE 1 TABLET BY MOUTH THREE TIMES DAILY NEEDED FOR PAIN active Not Available Not Available No t Available levothyro xine 25 mcg tablet TAKE 1 TABLET BY MOUTH ONCE DAILY active Not Available Not Available No t Available bisoprolo l fumarate 5 mg tablet 04/30 completed Not Available Not Available Not Available meloxicam 7.5 mg tablet active Not Available Not Available Not Available oxycodone -acetamin ophen 5 mg-325 mg tablet 04/30 completed Not Available Not Available Not Available metoclopr amide 5 mg tablet TAKE 1 TABLET BY MOUTH THREE TIMES DAILY 04/30 completed Not Available Not Available Not Available pravastat in 10 mg tablet 06/26 completed Not Available Not Available Not Available nifedipin e ER 60 mg tablet,ex tended release 24 hr 04/30 completed Not Available Not Available Not Available ropinirol e 0.25 mg tablet 05/23 completed Not Available Not Available Not Available Humalog U-100 Insulin 100 unit/mL subcutane ous solution 04/30 completed Not Available Not Available Not Available nifedipin e ER 90 mg tablet,ex tended release 24 hr active Not Available Not Available Not Available baclofen 10 mg tablet 05/23 completed Not Available Not Available Not Available benzonata te 100 mg capsule TAKE 1 CAPSULE BY MOUTH TWICE DAILY NEEDED FOR COUGH 06/26 completed Not Available Not Available Not Available metformin 1,000 mg tablet Take 1 tablet twice a day by oral route. 04/30 completed Not Available Not Available Not Available ropinirol e 0.5 mg tablet 05/23 completed Not Available Not Available Not Available nystatin 100,000 unit/gram topical cream 06/26 completed Not Available Not Available Not Available glimepiri de 4 mg tablet 04/30 completed Not Available Not Available Not Available omeprazol e 20 mg capsule,d elayed release 05/23 completed Not Available Not Available Not Available pravastat in 20 mg tablet 06/26 completed Not Available Not Available Not Available furosemid e 20 mg tablet active Not Available Not Available Not Available betmichelle ol chloride 50 mg tablet TAKE 1 TABLET BY MOUTH 3 TIMES DAILY 2024 active Not Available Not Available Not Avai lable cefuroxim e axetil 500 mg tablet TAKE 1 TABLET BY MOUTH EVERY 12 HOURS FOR 10 DAYS 2024 active Not Available Not Available Not Avai lable levofloxa donny 500 mg tablet TAKE 1 TABLET BY MOUTH ONCE DAILY FOR 10 DAYS 04/30 completed Not Available Not Available Not Available estradiol 0.01% (0.1 mg/gram) vaginal cream 04/30 completed Not Available Not Available Not Available methylpre dnisolone 4 mg tablets in a dose pack TAKE BY MOUTH DIRECTED ON INSIDE OF PACKAGE 04/30 completed Not Available Not Available Not Available albuterol sulfate HFA 90 mcg/actua tion aerosol inhaler INHALE 2 PUFFS BY MOUTH 4 TIMES DAILY active Not Available Not Available No t Available nifedipin e ER 60 mg tablet,ex tended release TAKE 1 TABLET BY MOUTH ONCE DAILY active Not Available Not Available No t Available cefdinir 300 mg capsule TAKE 1 CAPSULE BY MOUTH TWICE DAILY FOR 7 DAYS 04/30 completed Not Available Not Available Not Available losartan 100 mg tablet 06/26 completed Not Available Not Available Not Available metformin ER 500 mg tablet,ex tended release 24 hr TAKE 2 TABLETS BY MOUTH ONCE DAILY WITH BREAKFAS T 04/30 completed Not Available Not Available Not Available glipizide 5 mg tablet 04/30 completed Not Available Not Available Not Available diazepam 5 mg tablet TAKE 1 TABLET BY MOUTH 30 MINUTES PRIOR TO MRI. MAY REPEAT DOSE IF NEEDED active Not Available Not Available No t Available metoclopr amide 10 mg tablet 05/23 completed Not Available Not Available Not Available amoxicill in 875 mg-potass ium clavulana te 125 mg tablet 04/30 completed Not Available Not Available Not Available ciclopiro x 0.77 % topical gel active Not Available Not Available Not Available Humalog U-100 Insulin 100 unit/mL subcutane ous cartridge 04/30 completed Not Available Not Available Not Available ezetimibe 10 mg tablet 04/30 completed Not Available Not Available Not Available rosuvasta tin 5 mg tablet 06/26 completed Not Available Not Available Not Available topiramat e 50 mg tablet active Not Available Not Available Not Available nitrofura ntoin monohydra te/macroc rystals 100 mg capsule 05/23 completed Not Available Not Available Not Available duloxetin e 30 mg capsule,d elayed release active Not Available Not Available Not Available pregabali n 100 mg capsule 04/30 completed Not Available Not Available Not Available chlorhexi dine gluconate 0.12 % mouthwash RINSE WITH 15ML FOR 2 MINUTES AND EXPECTOR ATE, USE TWICE DAILY 04/30 completed Not Available Not Available Not Available Fish Oil 05/23 completed Medicati on Descript ion: omega-3 polyunsa turated fatty acids; Route:or al; refills: 0 Not Available Not Available Not Available pyridoxin e (vitamin B6) active Not Available Not Available Not Available Prozac Daily 05/23 completed Frequenc y: daily;Me dication Descript ion: fluoxeti ne; Dosage:1 ; Route:or al; refills: 0; Quantity :30 Not Available Not Available Not Available metformin As Directed 05/23 completed Frequenc y: as direct.; Medicati on Descript ion: metformi n; Dosage:a s directed ; Route:or al; refills: 0 Not Available Not Available Not Available topiramat e 04/30 completed Not Available Not Available Not Available domperido ne active Not Available Not Available Not Available Amitiza 24 mcg capsule active Not Available Not Available Not Available fenofibra te nanocryst allized 145 mg tablet 04/30 completed Not Available Not Available Not Available Januvia 100 mg tablet active Not Available Not Available Not Available Pulmicort Flexhaler 90 mcg/actua tion breath activated INHALE 2 PUFFS BY MOUTH EVERY 12 HOURS active Not Available Not Available No t Available peg 3350-elec trolytes 236 gram-22.7 4 gram-6.74 gram-5.86 gram solution TAKE 2000 ML BY MOUTH EVERY DAY DIRECTED FOR 2 DAYS active Not Available Not Available No t Available Lantus Solostar U-100 Insulin 100 unit/mL (3 mL) subcutane ous pen active Not Available Not Available Not Available Humalog KwikPen (U-100) Insulin 100 unit/mL subcutane ous active Not Available Not Available Not Available desvenlaf axine succinate ER 50 mg tablet,ex tended release 24 hr active Not Available Not Available Not Available BD Ultra-Fin e Tameka Pen Needle 32 gauge x active Not Available Not Available Not Available Tradjenta 5 mg tablet TAKE 1 TABLET BY MOUTH ONCE DAILY active Not Available Not Available No t Available V-GO 30 device 04/30 completed Not Available Not Available Not Available Janumet XR 100 mg-1,000 mg tablet,ex tended release 04/30 completed Not Available Not Available Not Available Linzess 145 mcg capsule 04/30 completed Not Available Not Available Not Available Jardiance 10 mg tablet 04/30 completed Not Available Not Available Not Available Jardiance 25 mg tablet 04/30 completed Not Available Not Available Not Available Movantik 25 mg tablet active Not Available Not Available Not Available Narcan 4 mg/actuat ion nasal spray 05/23 completed Not Available Not Available Not Available Trulance 3 mg tablet active Not Available Not Available Not Available isopropam juan antonio iodide active Not Available Not Available Not Available Bydureon BCise 2 mg/0.85 mL subcutane ous auto-inje ctor 05/23 completed Not Available Not Available Not Available Ozempic 1 mg/dose (4 mg/3 mL) subcutane ous pen injector 04/30 completed Not Available Not Available Not Available Dexcom G7 Sensor device DIRECTED CHANGE EVERY 10 DAYS active Not Available Not Available No t Available Ozempic 0.25 mg or 0.5 mg (2 mg/3 mL) subcutane ous pen injector INJECT 0.25MG SUBCUTAN EOUSLY ONCE A WEEKLY FOR 4 WEEKS, THEN INCREASE TO 0.5MG WEEKLY 04/30 completed Not Available Not Available Not Available Airsupra 90 mcg-80 mcg/actua tion HFA aerosol inhaler INHALE 2 INHALATI ONS 6 TIMES A DAY NEEDED FOR SHORTNES S OF BREATH OR WHEEZING active Not Available Not Available No t Available Vitals Date Recorded Body height Body mass index (BMI) Body weight Provider Name and Address Organization Details Last Updated DateTime 11/08/2021 157.48 cm 33.7 kg/m2 65763 g [facility] 11/08/2021 14:24:33 Date Recorded Body height Body mass index (BMI) Body weight Provider Name and Address Organization Details Last Updated DateTime 05/12/2022 160.02 cm 33.1 kg/m2 69037.77 balbina Jung [facility] 05/12/2022 12:40:34 Date Recorded Body height Body mass index (BMI) Body weight Provider Name and Address Organization Details Last Updated DateTime 01/09/2023 160.02 cm 33.1 kg/m2 31118.77 blabina Navarro [facility] 01/09/2023 16:03:46 Date Recorded Body height Body mass index (BMI) Body weight Provider Name and Address Organization Details Last Updated DateTime 04/30/2024 160.02 cm 32.4 kg/m2 75340.4 g Dorita Jung [facility] 04/30/2024 13:25:30 Date Recorded Body height Body mass index (BMI) Body weight Body temperature Heart rate Systolic blood pressure Diastolic blood pressure Provider Name and Address Organization Details Last Updated DateTime 5 160.02 cm 34 kg/m2 67285.4 4 g 96.9 [degF] 124 /min 147 mm[Hg] 68 mm[Hg] Mona Мария [facility] 5 11:22:17 Social History Question Answer Notes LastModified by Organizat ion Details LastModified Time Tobacco Smoking Status Never Smoker Mare Osborn [facility] 05/23/2019 10:24:18 What Is Your Level Of Alcohol Consumption? None [email or web address] Information not available 05/23/2019 How Much Tobacco Do You Chew? None [email or web address] Information not available 05/23/2019 Marital Status adela Informat ion not available 05/23/2019 What Is Your Relationship Status? [email or web address] Information not available 11/01/2020 Do You Use Any Illicit Or Recreational Drugs? No [email or web address] Information not available 11/01/2020 Has Tobacco Cessation Counseling Been Provided? No [email or web address] Information not available 11/01/2020 Have You Recently Traveled Abroad? No [email or web address] Information not available 11/01/2020 Do You Or Have You Ever Used Any Other Forms Of Tobacco Or Nicotine? No [email or web address] Information not available 11/01/2020 Sex: Unknown Functional Status None recorded. Mental Status None recorded. Family History Relationship Description Onset Age of this Age Resolved Age Notes LastModified by Organization Details LastModified Time Father No current problems or disability [email or web address] Not available 10:24:12 Mother No current problems or disability [email or web address] Not available 10:24:12 Medical History Condition Response Diabetes Y Hypertension Y Sleep Apnea Y Heart Arrhythmia Y Gynecological HistoryNo gynecological history recorded. Obstetrics History GPAL:G 0 P 0 0 0 0 Past Encounters Encounter ID Performer Location Encounter Start Date Encounter Closed Date Diagnosis/Indication Diagnosis SNOMED-CT Code Diagnosis ICD10 Code Diagnosis Note [id number] MELIZA DOWNS MD [facility] [address] [place] [address] 05/13/2019 12:58:50 05/15/2019 11:14:11 [id number] LESLIE CAMPUZANO MD [facility] [address] [place] [address] 05/23/2019 09:54:44 05/23/2019 10:49:30 Retention of urine 532022244 R33.9 follow-up 2-3 weeks Neurogenic urinary bladder 804026804 N31.9 plan as above [id number] MD [facility]AM [facility] [address] [place] [address] 06/16/2019 12:28:58 06/16/2019 13:45:00 Retention of urine 371211104 R33.9 follow-up 2-3 weeks Neurogenic urinary bladder 394498603 N31.9 plan as above, we discussed that it may be several weeks for hopeful return of normal bladder function. She presented self catheteriz ation and continue with Urecholine follow-up 2 months [id number] MD [facility]AM [facility] [address] [place] [address] 08/18/2019 13:04:34 08/18/2019 13:59:16 Neurogenic dysfunction of urinary bladder 467955975 N31.9 plan as above follow-up 2 months [id number] LESLIE CAMPUZANO MD [facility] [address] [place] [address] RD[address] [address] 10/20/2019 14:28:53 10/20/2019 16:03:52 Neurogenic dysfunction of urinary bladder 337973403 N31.9 plan as above follow-up 3 months [id number] LESLIE CAMPUZANO MD [facility] [address] [place] [address] RD[address] [place] [address] 04/19/2020 10:57:00 04/19/2020 11:34:35 Urinary tract infectious disease 23963112 N39.0 Neurogenic dysfunction of urinary bladder 575035910 N31.9 plan as above follow-up 6 months . Continue bethanecho l and intermitte nt self-chantell terization 3 times per day [id number] LESLIE CAMPUZANO MD [facility] [address] [place] [address] RD,[address] [place] [address] 11/01/2020 14:25:12 11/01/2020 15:16:39 Urinary tract infectious disease 87595217 N39.0 Neurogenic dysfunction of urinary bladder 334455705 N31.9 plan as above follow-up 6 months . Continue bethanecho l and intermitte nt self-chantell terization 3 times per day [id number] LESLIE CAMPUZANO MD [facility] [address] [place] [address] RD,[address] [place] [id number] 01/31/2021 13:16:09 01/31/2021 13:49:54 Urinary tract infectious disease 86106413 N39.0 Neurogenic dysfunction of urinary bladder 053094034 N31.9 plan as above follow-up 6 months . Continue bethanecho l and intermitte nt self-chantell terization 3 times per day Retention of urine 58427 4002 R33.9 3 months [id number] MD JAM [facility] [address] [place], [place] [address] IN[address] [facility] [address] [place] [address] 05/11/2021 15:07:24 05/11/2021 15:58:01 Neurogenic dysfunction of urinary bladder 410554828 N31.9 plan as above follow-up 6 months . Continue bethanecho l and intermitte nt self-chantell terization 3 times per day [id number] JUSTIN SHERMAN MD [facility] [address] [place] [address] 11/08/2021 14:03:07 11/08/2021 14:35:55 Retention of urine 678536724 R33.9 [id number] LESLIE CAMPUZANO MD [facility] [address] [place] [address] 05/12/2022 10:33:39 05/12/2022 15:33:04 Urinary tract infectious disease 70029283 N39.0 Chronic re tention of urine 321240754 R33.8 Continue with intermitte nt self-chantell terization and then a call [id number] LESLIE CAMPUZANO MD [facility] [address] [place] [address] 01/09/2023 14:48:36 01/09/2023 16:32:05 Chronic retention of urine 109146775 R33.8 Continue with intermitte nt self-chantell terization and follow-up 1 year Chronic in fective cystitis 244019810 N30.20 [id number] LESLIE CAMPUZANO MD [facility] [address] [place] [address] 04/30/2024 13:10:08 04/30/2024 14:10:17 Chronic retention of urine 055438386 R33.8 Continue with intermitte nt self-chantell terization and follow-up 1 year Chronic in fective cystitis 692410823 N30.20 [id number] IRVIN FRANCOIS MD [place] [facility] [address] [place] [address] 06/26/2024 11:00:08 06/26/2024 11:49:59 Chronic cough 54232086 R05.3 Pain in throat 837723048 R07.0 Laryngopha ryngeal reflux 430854114 K21.9 06/26/24 - flex scope = erythema and evidence of acid kimble on the vocal cords Gastropare sis syndrome 559838747 K31.84 Health Concerns Section Related Observation LastModified by Organization Detai ls LastModified Time None Recorded Concern Status LastModified by Organization Details LastModified Time None Recorded Advance Directives Directive None Recorded Payers Insurance Date Sequence Insurance Name Policy Number Policy Cannon Covered Member ID Cannon Member ID Guarantor Name 06/26/2024 1 [facility] [id number] Gertrudis L Gonzalez [id number] Gertrudis Gonzalez 06/26/2024 1 [employer] (MEDICARE REPLACEMENT PPO) [id number] Gertrudis L Gonzalez [id number] Gertrudis Gonzalez 07/01/2024 1 [place] [employer] (MEDICARE REPLACEMENT/A DVANTAGE - PPO) [id number] Gertrudis L Gonzalez [id number] Gertrudis Gonzalez Notes Date Note Type Note Provider Name and Address Organization Details Recorded Time 11/08/2021 text/html she is back for follow-up of urinary retention. She has been taken the bethanechol twice daily. She had some issues when she was taking it 3 times a day. She does void some on her own but still does intermittent catheterizations. Often she gets a large volume of urine on catheterization. She's not had any sign of recurrent urinary tract infection. We talked about InterStim therapy help the retention and she is going to consider it JUSTIN SHERMAN MD [address] [place] [address], [phone], [facility] hospital 11/08/2021 14:43:39 05/12/2022 text/html Patient is here for scheduled 6Month follow-up. She continues to take bethanechol twice daily and perform intermittent catheterization 3 times per day. She had recent symptomatic urinary infection several weeks ago. Her urine today is unremarkable. She has some mild irritative symptoms. We will culture her urine. LESLIE CAMPUZANO MD [address] [place] [address], [phone], Critical access hospital 05/16/2022 11:00:42 01/09/2023 text/html Patient is here in follow-up of chronic urinary retention. She continues to perform intermittent self-catheterization 3 times per day. She has had some episodes of symptomatic infection. Her urine today is unremarkable. She continues to take bethanechol twice per day. I suggest that we have her keep antibiotics on hand for self treatment of symptomatic infections. If her symptoms fail to resolve promptly she will notify me. We will move her to yearly follow-up LESLIE CAMPUZANO MD [facility] [place], [phone], Critical access hospital 01/10/2023 23:57:23 04/30/2024 text/html Patient is here for yearly follow-up last seen in December 2022. She has neurogenic bladder and partial chronic urinary retention. She catheterizes 3 times per day but does void some on her own so long as she takes bethanechol 25 mg twice daily. She also occasionally has a urinary infection which she treats with self therapy using cefuroxime. She has had some occasional episodes of cramping discomfort in left lower quadrant. She feels this does not mimic a stone episode. Her urine today is completely unremarkable and she is satisfied with current therapy. We will continue on current medical regimen for now. LESLIE CAMPUZANO [facility] [place], [phone], Critical access hospital 04/30/2024 13:51:22 06/26/2024 text/html Gertrudis comes in today for an evaluation of chronic cough and severe throat pain when singing or raising her voice at the referral of VASILE Lizarraga. Her cough has been ongoing for a while, but the throat pain started approximately a month ago. 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 She denies the use of tobacco or alcohol. She does ingest caffeine daily - around 3 sodas a day. She also experiences constant mucus production in her eyes, nose, and throat. Of note, she takes Zyrtec daily. She also takes omeprazole every morning. She has a history of gastroparesis[place], [phone], [facility] access hospital 06/26/2024 13:09:05 OBGyn Episode No OBEpisode recorded.
--- OUTSIDE RECORDS SUMMARY | 2024-08-07 11:25 | XMS_ITS | Continuity of Care Document ---
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 Plan of Treatment Reminders Order Date Submit Date Provider Last Modified By Organization Details Last Modified Time Details Appointments RECHECK 2024 01:30P M SHABANA LAM PA-C Not available Not available Not available Lab None recorded . Referral None recorded . Procedures None recorded . Surgeries None recorded . Imaging None recorded . Medication Orders None recorded . Patient TargetsNo targets recorded. Patient Instructions Encounter Date Encounter Id Patient Instructions Last Modified By Organization Details Last Modified Time 06/26/2024 [id number] 1. Laryngoscopy flex performed in office today. [...] to discuss taking omeprazole both AM/PM with [employer] 5. Advised patient that singing can worsen acid reflux 6. F/u prn - [place] [facility] [place] available 06/26/2024 11:49:30 Reason for Referral None Reported. Problems No Known Problems Procedures Surgical History Date Name Laterality Status Provider Name and Address Organization Details Recorded Time 06/27/19 25 [facility] 11:43:41 06/16/19 20 Post Void Residual; Ultrasound completed Deseriee [place] [facility] 06/16/2019 13:32:32 Back Surgery completed Mare Osborn [facility] 05/23/2019 10:25:14 Imaging Results None recorded. Procedure Notes None recorded. Medical Equipment None Reported. Allergies Allergen ID Allergen Name Allergen Category Reaction Reaction Severity Criticality Documentation Date Start Date Code Code System Note Provider Name and Address Organization Details Recorded Time 058180 metformin medicatio n Not available Not available Not available 05/23/2019 6809 RxNorm Mare Palaciosnell mandujano [facility] 0 10:24:00 348096 latex environme nt,medica tion Not available Not available Not available 06/26/2024 20500 91 RxNorm Mona Praria [facility] 5 11:22:49 422291 Product containin g penicilli n (product) medicatio n Not available Not available Not available 06/26/2024 70441 8001 SNOMED Mona Praria [facility] 5 11:23:05 229048 Product containin g beta adrenergi c receptor antagonis t (product) medicatio n Not available Not available Not available 06/26/2024 74520 009 SNOMED Mona Praria [facility] 5 11:23:21 189045 spironola ctone medicatio n Not available Not available Not available 06/26/2024 9997 RxNorm Mona Praria [facility] 5 11:23:46 Medications Name Sig Start Date Stop [...] active Not Available Not Available Not Available bethanech ol chloride 50 mg tablet TAKE 1 [...] Updated DateTime 5 160.02 cm 34 kg/m2 57578.4 4 g 96.9 [degF] 124 /min 147 mm[Hg] 68 mm[Hg] Mona Hsieh [facility] 5 11:22:17 Social History Question Answer Notes LastModified by Organizat ion Details LastModified Time Tobacco Smoking Status Never Smoker Mare Osborn [facility] 05/23/2019 10:24:18 What Is Your Level Of Alcohol Consumption? None Information not available 05/23/2019 How Much Tobacco Do You Chew? None Information not available 05/23/2019 Marital Status Informat ion not available 05/23/2019 What Is Your Relationship Status? [email or web address] Information not available 11/01/2020 Do You Use Any Illicit Or Recreational Drugs? No [email or web address] Information not available 11/01/2020 Has Tobacco Cessation Counseling Been Provided? No [email or web address] Information not available 11/01/2020 Have You Recently Traveled Abroad? No [email or web address] Information not available 11/01/2020 Do You Or Have You Ever Used Any Other Forms Of Tobacco Or Nicotine? No [email or web address] Information not available 11/01/2020 Sex: Unknown Functional Status None recorded. Mental Status None recorded. Family History Relationship Description Onset Age of this Age Resolved Age Notes LastModified by Organization Details LastModified Time Father No current problems or disability [email or web address] Not available 10:24:12 Mother No current problems or disability [email or web address] Not available 10:24:12 Medical History Condition Response Diabetes Y Hypertension Y Sleep Apnea Y Heart Arrhythmia Y Gynecological HistoryNo gynecological history recorded. Obstetrics History GPAL:G 0 P 0 0 0 0 Past Encounters Encounter ID Performer Location Encounter Start Date Encounter Closed Date Diagnosis/Indication Diagnosis SNOMED-CT Code Diagnosis ICD10 Code Diagnosis Note [id number] IRVIN FRANCOIS MD [facility] [address] [place] [address] 06/26/2024 11:00:08 06/26/2024 11:49:59 Chronic cough 65494522 R05.3 Pain in throat 716009574 R07.0 Laryngopha ryngeal reflux 651689722 K21.9 06/26/24 - flex scope = erythema and evidence of acid kimble on the vocal cords Gastropare sis syndrome 542166377 K31.84 Health Concerns Section Related Observation LastModified by Organization Detai ls LastModified Time None Recorded Concern Status LastModified by Organization Details LastModified Time None Recorded Payers Encounter Date Sequence Insurance Name Policy Number Policy Cannon Covered Member ID Cannon Member ID Guarantor Name 06/26/2024 1 [facility] (MEDICARE REPLACEMENT/A DVANTAGE - PPO) [id number] Gertrudis Gilbert Gonzalez [id number] Gertrudis Gonzalez Notes Date Note Type Note Provider Name and Address Organization Details Recorded Time 06/26/2024 text/html Gertrudis comes in today for an evaluation of chronic cough and severe throat pain when singing or raising her voice at the referral of VASILE Lennon. Her cough has been ongoing for a while, but the throat pain started approximately a month ago. 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 She denies the use of tobacco or alcohol. She does ingest caffeine daily - around 3 sodas a day. She also experiences constant mucus production in her eyes, nose, and throat. Of note, she takes Zyrtec daily. She also takes omeprazole every morning. She has a history of gastroparesis. IRVIN FARNCOIS MD [address] [place], [address], [facility] 06/26/2024 13:09:05 OBGyn Episode No OBEpisode recorded.
--- OUTSIDE RECORDS SUMMARY | 2024-08-07 11:25 | XMS_ITS | Data Portability ---
Author Organization [place] - [facility] - [place] & SAVANNA Calvo ADMIN Address [address] [place] [address] Care Team Providers Care Radio Interference Supervisor Name Role Phone SILVESTRE DAVIS Primary Care [...] __ __ __ __ __ _ GENE: [id number] I have reviewed patient's GENE report prior [...] __ __ __ __ __ _ GENE: [id number] I have reviewed patient's GENE report prior to prescribing Schedule II, III, and IV medications that require review by law. [email or web address] Not available 12/25/2022 06:15:28 01/15/2023 01/15/2023 The [...] __ __ __ __ __ _ GENE: 991676800 I have reviewed patient's GENE report prior to prescribing Schedule II, III, and IV medications that require review by law. Not available 01/16/2023 13:41:06 02/20/2023 02/20/2023 The [...] __ __ __ __ __ _ GENE: 369626845 I have reviewed patient's GENE report prior [...] __ __ __ __ __ _ GENE: 755413637 I have reviewed patient's GENE report prior to prescribing Schedule II, III, and IV medications that require review by law. [email or web address] Not available 05/28/2023 10:23:47 Plan of Treatment Reminders Order Date Submit Date Provider Last Modified By Organization Details Last Modified Time Details Appointments None recorded. Lab None recorded. Referral None recorded. Procedures injection, single, diagnostic or therapeutic substance, lumbar, sacral (PROC) - Caudal epidural. 69575. 2023 024 [email or web address] Yuniel Diaz MD, [address], [place], [address], 4 12:08:01 injection, trigger point (PROC) - TPI of the left lumbosacral region. [address]. [address]141. 2023 024 [email or web address] Yuniel Diaz MD, [address], [place], [address], 4 16:17:28 injection, single, diagnostic or therapeutic substance, lumbar, sacral (PROC) - Caudal epidural. 57320. 2022 023 [email or web address] Yuniel Diaz MD, [address], [place], [address], 3 09:08:26 greater trochanteri c bursa injection (PROC) - 19478, 53885 right trochanteri c bursa 2022 023 [email or web address] Not available 3 15:24:17 Surgeries None recorded. Imaging XR, hip + pelvis, bilateral - Bilateral hip x-ray 2022 023 [email or web address] [facility], [facility], [place], [address], 3 15:52:55 XR, ankle + foot - Left foot/ankle x-ray 2022 023 [email or web address] [facility], [address] [facility], [place], [address], 3 15:52:55 Medication Orders None recorded. Patient TargetsNo targets recorded. Patient InstructionsNo instructions recorded. Reason for Referral None Reported. Results Created Date Observation Date Name Description Value Unit Range Abnormal Flag Note LastModifiedBy Organization Detail LastModifiedTime 12/23/19 23 12/22/2022 XR, pelvi s [facility] [address] [place] [address] Phone: Fax: Name: GERTRUDIS DALY Exam Date: : 957 Age 66 Gender : F Access ion: [id number] Physic kimberly: LIZZ CARROLL Facili ty: [facility] Facili ty HSV: Outpat ient Exam: PELVIS [...] Thank you for referr GERTRUDIS Infante to [facility]. Legall y authen ticate d by PAULO PITTMAN 12-22 11:50: 50 CC'ed Logic: Orderi ng Provid er: CARLY ZAMUDIO Attend ing Provid er: CARLY ZAMUDIO Admitt ing Provid er: CARROLL LIZZ [email or web address] [facility] - Physical Therapy [address] [facility], [place], [address], 01/02/2023 12:02:22 12/23/19 23 12/22/2022 XR, hip, unila teral , 1 view [facility] [address] [place] [address] Phone: Fax: Name: GERTRUDIS DALY Exam Date: : 957 Age 66 Gender : F Access ion: [id number] Physic kimberly: LIZZ CARROLL Facili [...] Thank you for referr GERTRUDIS Infante to [facility]. Legall y authen tickiran d by PAULO PITTMAN 12-22 11:57: 48 CC'ed Logic: Orderi ng Provid er: CARLY ZAMUDIO Attend ing Provid er: CARLY LIZZ Admitt ing Provid er: CARLY ZAMUDIO [email or web address] [facility] [address] [facility], [place], [address], 01/02/2023 12:02:23 12/23/19 23 12/22/2022 XR, hip, unila teral , [facility] [address] [place] [address] Phone: Fax: Name: GERTRUDIS DALY Exam Date: : 957 Age 66 Gender : F Access ion: [id number] 5031 Physic kimberly: LIZZ CARROLL Facili ty: [facility] Facili ty HSV: Outpat ient Exam: HIP [...] ribed By: Brian Mccauley Transc ribed On: 11:58 AM Electr onical ly signed by: Brian Haynes 023 Thank you for referr GERTRUDIS Infante to [facility]. Legall y authen ticate d by PAULO PITTMAN 12-22 11:58: 58 CC'ed Logic: Orderi ng Provid er: CARLY ZAMUDIO Attend ing Provid er: CARLY Mcclure ing Provid er: CARLY ZAMUDIO [email or web address] [facility] Physical [facility] [address] [facility], [place], [address], 01/02/2023 12:02:23 12/23/19 23 12/22/2022 XR, foot, 3 or more view [facility] [address] [place] [address] Phone: Fax: Name: GERTRUDIS DALY Exam Date: : 957 Age 66 Gender : F Access ion: [id number] Physic kimberly: LIZZ CARROLL ty: [facility] Facili ty HSV: Outpat ient Exam: FOOT [...] Thank you for referr GERTRUDIS Infante to [facility]. Legall y authen ticate d by PAULO PITTMAN 12-22 12:02: 57 CC'ed Logic: Orderi ng Provid er: CARLY ZAMUDIO Attend ing Provid er: CARLY ZAMUDIO Admitt ing Provid er: CARLY ZAMUDIO [email or web address] [facility] - Physical Therapy [address] [place] [address], [place], [address], 01/02/2023 12:02:23 12/23/19 23 12/22/2022 XR, ankle , 3 or more view [facility] [address] [facility] [place] [address] Phone: Fax: Name: GERTRUDIS DALY Exam Date: 023 : 957 Age 66 Gender : F Access ion: [id number] Physic kimberly: LIZZ CARROLL Facili ty: [facility] Facili ty HSV: Outpat ient Exam: ANKLE [...] you for referr ing GERTRUDIS DALY to [facility]. Legall y authen ticate d by PAULO PITTMAN 0 12-22 12:03: 33 CC'ed Logic: Orderi ng Provid er: CARLY ZAMUDIO Attend ing Provid er: CARLY ZAMUDIO Admitt ing Provid er: CARLY ZAMUDIO [email or web address] [facility] - Physical Therapy [address] [facility], [place], [address], 01/02/2023 12:02:24 Result Notes None recorded. Problems Name Problem SNOMED Code Status Onset Date Resolution Date Notes Provider Name and Address Organization Details Recorded Time Piriformis syndrome 698970408 Active 2021 Vy Calhoun null, [place] - [facility] - [place] & [place] 2 11:51:02 Myofascial pain 027419479 Active 2021 Vy Calhoun [place] [facility] [place] 2 11:51:10 Spinal stenosis of lumbar region 41736240 Active 2021 Vy Calhoun [place] [facility] [place] 2 11:51:26 Pain of bilateral hip joints 9818342023991 9100 Active 2021 Vy Calhoun [place] [facility] [place] 2 11:51:40 Bilateral trochanteri c bursitis 7502070115168 9109 Active 2021 Vy Calhoun [place] [facility] [place] 2 11:51:54 Piriformis syndrome 249050727 Active 2021 marylin haile null, [place] [facility] [place] 2 09:27:40 Meralgia paresthetic a 32672533 Active 2021 Aditi Hirsch [place] [facility] [place] 2 11:56:26 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 2021 Vy Calhoun [place] [facility] [place] 2 12:45:32 Radiculitis due to rupture of lumbar interverteb ral disc 5046610416 Active 2022 Vy Calhoun [place] [facility] [place] 3 14:24:46 Lumbar post-saida ctomy syndrome 461963811 Active 2022 Vy Calhoun [place] [facility] [place] 3 09:17:06 Pain of right hip joint 0113534408786 02 Active 2022 Vy Campakins null[place] [facility] [place] 3 11:11:08 Pain in left foot 3528144910893 07 Active 2022 Vy Campatomasa donnelly AIMEE - [facility] & [place] 11:11:10 Problem Notes None recorded. Procedures Surgical History Date Name Laterality Status Provider Name and Address Organization Details Recorded Time 2 Injection Only completed Vy YU - [facility] & [place] 03/01/2022 12:53:33 hysterectomy completed Vy Campakins AIMEE - [facility] & [place] 01/04/2022 11:54:35 Imaging Results Imaging Date Name Status LastModified by Organiz ation Details LastModified Time 12/22/2022 XR, pelvis completed [address] Physical [facility] [address] [place], [address], 01/02/2023 12:02:22 12/22/2022 XR, hip, unilateral, 1 view completed [address] [place], [address], 01/02/2023 12:02:23 12/22/2022 XR, hip, unilateral, 1 view completed [address] Physical [facility] [address] [place], [address], 01/02/2023 12:02:23 12/22/2022 XR, foot, 3 or more view completed [address] Physical [facility] [address] [place], [address], 01/02/2023 12:02:23 12/22/2022 XR, ankle, 3 or more view completed [address] Physical Therapy [address] [place], [address], 01/02/2023 12:02:24 Procedure Notes None recorded. Medical Equipment None Reported. Allergies Allergen ID Allergen Name Allergen Category Reaction Reaction Severity Criticality Documentation Date Start Date Code Code System Note Provider Name and Address Organization Details Recorded Time 79910 metformin medicatio n Not available Not available Not available 01/02/2022 6809 RxNorm Vy donnelly, [place]IM[place] - [facility] - [place] & [place] 2 16:18:27 Medications Name Sig Start Date [...] Updated DateTime 3 157.48 cm 34.2 kg/m2 37247.4 9 g 97.9 [degF] 96 % 96 % 99 /min 174 mm[Hg] 78 mm[Hg] Vy YU - [place] - [place] & [place] 3 09:42:25 Date Recorded Body height Body mass index (BMI) Body weight Body temperature Oxygen saturation Oxygen saturation in Arterial blood by Pulse oximetry Heart rate Systolic blood pressure Diastolic blood pressure Provider Name and Address Organization Details Last Updated DateTime 3 157.48 cm 33.5 kg/m2 54293.1 2 g 97.1 [degF] 94 % 94 % 94 /min 169 mm[Hg] 77 mm[Hg] [facility] 3 10:09:42 Date Recorded Body height Body mass index (BMI) Body weight Body temperature Oxygen saturation Oxygen saturation in Arterial blood by Pulse oximetry Heart rate Systolic blood pressure Diastolic blood pressure Provider Name and Address Organization Details Last Updated DateTime 3 157.48 cm 33.5 kg/m2 12512.1 2 g 97.8 [degF] 94 % 94 % 84 /min 141 mm[Hg] 73 mm[Hg] [facility] & [place] 3 10:51:12 Date Recorded Body height Body mass index (BMI) Body weight Body temperature Oxygen saturation Oxygen saturation in Arterial blood by Pulse oximetry Heart rate Systolic blood pressure Diastolic blood pressure Provider Name and Address Organization Details Last Updated DateTime 3 157.48 cm 32.9 kg/m2 08442.6 3 g 97.2 [degF] 95 % 95 % 96 /min 149 mm[Hg] 72 mm[Hg] [facility] & [place] 3 12:32:07 Date Recorded Body height Body mass index (BMI) Body weight Body temperature Oxygen saturation Oxygen saturation in Arterial blood by Pulse oximetry Heart rate Systolic blood pressure Diastolic blood pressure Provider Name and Address Organization Details Last Updated DateTime 4 157.48 cm 36.1 kg/m2 18016.8 5 g 97.4 [degF] 93 % 93 % 94 /min 150 mm[Hg] 80 mm[Hg] [facility] & [place] 4 08:30:50 Social History None recorded. Functional Status None recorded. Mental Status None recorded. Family History Relationship Description Onset Age of this Age Resolved Age Notes LastModified by Organization Details LastModified Time Mother Diabetes mellitus carlos eduardo Not available 01/04 11:53:09 Mother Mother carlos eduardo Not available 01/04 11:53:38 Father Father carlos eduardo Not available 01/04 11:53:28 Medical History Condition Response Coronary Artery Disease N Gout N Head Trauma/Injury N Hernia N Thyroid Problems N Depression Y COPD N Anemia N Ulcers N Heart Attack (AK) N Diabetes Y Anxiety Disorder Y Bleeding [...] SNOMED-CT Code Diagnosis ICD10 Code Diagnosis Note [id number] Yuniel Diaz MD [facility] [address] [place] [address] 01/05/2022 13:03:21 01/05/2022 13:37:54 Myofascial pain 760162880 M79.10 Piriformis syndrome 1291 13864 G57.03 Spinal sj nosis of lumbar region 08152894 M99.53 M48.061 Pain of bi lateral hip joints 0514293593 0102061 M25.551 M25.552 Bilateral trochanteric bursitis 7601063429 5210268 M70.61 M70.62 [id number] LIZZ CARROLL PA-C [facility] [address] [address] 02/09/2022 10:57:38 02/09/2022 11:46:18 Myofascial pain 287007267 M79.10 Piriformis syndrome 1291 74002 G57.03 Spinal sj nosis of lumbar region 28025999 M99.53 M48.061 Pain of bi lateral hip joints 9148074520 5850822 M25.551 M25.552 Bilateral trochanteric bursitis 7528051308 1431682 M70.61 M70.62 Meralgia paresthetica 85 484564 G57.11 [id number] Yuniel Diaz MD [facility] [address] [address] 03/01/2022 08:08:52 03/01/2022 08:47:55 Meralgia paresthetica 34428239 G57.11 Ilioinguin al nerve neuritis 500364799 G57.81 [id number] Yuniel Diaz MD [facility] [address] [address] 03/16/2022 09:37:19 03/16/2022 10:41:07 Myofascial pain 178610976 M79.10 Piriformis syndrome 1291 30705 G57.03 Spinal sj nosis of lumbar region 09779241 M99.53 M48.061 Pain of bi lateral hip joints 4326008685 2254348 M25.551 M25.552 Bilateral trochanteric bursitis 3413251120 6594708 M70.61 M70.62 Meralgia paresthetica 85 109987 G57.11 Radiculiti s due to rupture of lumbar intervertebral disc 1987561154 M51.16 [id number] Yuniel Diaz MD [facility] [address] [place] [address] 05/18/2022 13:56:21 05/18/2022 15:37:22 Myofascial pain 840786404 M79.10 Piriformis syndrome 1291 83116 G57.03 Radiculiti s due to rupture of lumbar intervertebral disc 9113787659 M51.16 Spinal sj nosis of lumbar region 04205556 M99.53 M48.061 Pain of bi lateral hip joints 8860393849 1160283 M25.551 M25.552 Bilateral trochanteric bursitis 1360857072 6310619 M70.61 M70.62 Meralgia paresthetica 85 309247 G57.11 Lumbar post-laminectomy syndrome 797297768 M96.1 [id number] Yuniel Diaz MD [facility] [address] [address] 10/10/2022 14:48:07 10/10/2022 15:41:02 Myofascial pain 378586035 M79.10 Piriformis syndrome 1291 26630 G57.03 Radiculiti s due to rupture of lumbar intervertebral disc 0473108260 M51.16 Spinal sj nosis of lumbar region 85797409 M99.53 M48.061 Pain of bi lateral hip joints 5645211218 0937361 M25.551 M25.552 Bilateral trochanteric bursitis 8418158170 8248790 M70.61 M70.62 Meralgia paresthetica 85 030318 G57.11 Lumbar post-laminectomy syndrome 291339371 M96.1 [id number] Yuniel Diaz MD [facility] [address] [place] [address] 11/14/2022 09:25:21 11/14/2022 11:29:44 Myofascial pain 267473364 M79.10 Piriformis syndrome 1291 35707 G57.03 Radiculiti s due to rupture of lumbar intervertebral disc 5553637861 M51.16 Spinal sj nosis of lumbar region 02423160 M99.53 M48.061 Pain of bi lateral hip joints 4715636250 5810388 M25.551 M25.552 Bilateral trochanteric bursitis 1604170047 1240351 M70.61 M70.62 Meralgia paresthetica 85 801815 G57.11 Lumbar post-laminectomy syndrome 957965768 M96.1 [id number] Yuniel Diaz MD [facility] [address] [place] [address] 12/22/2022 09:58:16 12/22/2022 10:28:45 Myofascial pain 149621789 M79.10 Piriformis syndrome 1291 05856 G57.03 Radiculiti s due to rupture of lumbar intervertebral disc 2869769931 M51.16 Spinal sj nosis of lumbar region 50870889 M99.53 M48.061 Pain of bi lateral hip joints 0446858218 3540069 M25.551 M25.552 Bilateral trochanteric bursitis 2967732761 4726776 M70.61 M70.62 Meralgia paresthetica 85 174986 G57.11 Lumbar post-laminectomy syndrome 243897403 M96.1 Pain of ri ght hip joint 8229094117 73469 M25.551 Pain in left foot 615942 3908 11897 M79.672 [id number] LIZZ CARROLL PA-C [facility] [address] [address] 01/15/2023 10:38:58 01/15/2023 11:45:30 Myofascial pain 298961024 M79.10 Piriformis syndrome 1291 67744 G57.03 Radiculiti s due to rupture of lumbar intervertebral disc 0782286579 M51.16 Spinal sj nosis of lumbar region 75512369 M99.53 M48.061 Pain of bi lateral hip joints 1065954364 1312301 M25.551 M25.552 Bilateral trochanteric bursitis 4584500530 7239688 M70.61 M70.62 Meralgia paresthetica 85 548595 G57.11 Lumbar post-laminectomy syndrome 761401259 M96.1 Pain of ri ght hip joint 2325577768 56106 M25.551 Pain in left foot 311957 5811 42770 M79.672 [id number] Yuniel Diaz MD [facility] [address] [place] [address] 02/20/2023 11:10:19 02/20/2023 11:33:52 Myofascial pain 635117617 M79.10 Piriformis syndrome 1291 09158 G57.03 Radiculiti s due to rupture of lumbar intervertebral disc 3354970054 M51.16 Spinal sj nosis of lumbar region 00127036 M99.53 M48.061 Pain of bi lateral hip joints 0925893292 3986805 M25.551 M25.552 Bilateral trochanteric bursitis 9711645377 3586872 M70.61 M70.62 Meralgia paresthetica 85 062949 G57.11 Lumbar post-laminectomy syndrome 312784873 M96.1 Pain of ri ght hip joint 6878090579 18138 M25.551 Pain in left foot 783281 3737 80570 M79.672 [id number] LIZZ CARROLL PA-C [facility] [address] [facility] e [address] [place] [address] 05/25/2023 08:05:48 05/25/2023 09:10:23 Myofascial pain 774414128 M79.10 Piriformis syndrome 1291 82249 G57.03 Radiculiti s due to rupture of lumbar intervertebral disc 8144564971 M51.16 Spinal sj nosis of lumbar region 33877212 M99.53 M48.061 Pain of bi lateral hip joints 0272531544 8854872 M25.551 M25.552 Bilateral trochanteric bursitis 9233689445 6113113 M70.61 M70.62 Meralgia paresthetica 85 888108 G57.11 Lumbar post-laminectomy syndrome 743839416 M96.1 Pain of ri ght hip joint 4141835287 85181 M25.551 Pain in left foot 440948 8979 64743 M79.672 Spinal ent hesopathy of lumbosacral region 0003871520 89872 M46.07 Health Concerns Section Related Observation LastModified by Organization Detai ls LastModified Time None Recorded Concern Status LastModified by Organization Details LastModified Time None Recorded Advance Directives Directive None Recorded Payers Insurance Date Sequence Insurance Name Policy Number Policy Cannon Covered Member ID Cannon Member ID Guarantor Name 10/20/2023 1 [facility] (MEDICARE REPLACEMENT/AD VANTAGE - PPO) [id number] Gertrudis Daly [id number] Gertrudis Daly 04/21/2022 1 [employer] (MEDICARE REPLACEMENT PPO) [id number] Essence Daly [id number] Gertrudis Daly 05/30/2021 1 [employer] [id number] Essence Daly [id number] Gertrudis Daly Notes Date Note Type Note [...] Multiple*Imaging/St udies: Lumbar MRI. DAHLIA STEARNS [address], [place], [address], [facility] [[email or web address] - [facility] - [place] & [place] 11/20/2022 14:25:52 12/22/2022 text/html The patient is [...] trauma. Today the pain level is a /10._ __ __ __ __ __ __ __ __ __ __ __ __ __ __ __ __ __ __ __ __ __ __ __ __ __ __ __ _*Onset: Chronic*Context: Worsening*Character : Sharp/ache, tightness/spasm, and numbness/tingling.* Location: Low back/buttock and BLE*Duration: Constant with fluctuations*Intens ity: 10*Worse: N/A*Better: N/A*Associated symptoms: Denies saddle anaesthesia, denies acute bowel/bladder changes, denies acute power loss.*ADLs: The patient's pain interferes with daily chores, exercise, sleep, relationships, and walking.*Current Pain Medications: Tramadol*Prior Pain Medications: N/A*NSAIDS/OTC: None*Non-interventi onal Tx: None*Physical Therapy: None*Interventional Tx: Multiple*Surgery: Multiple*Imaging/St udies: Lumbar MRI. LIZZ CARROLL PA-C [address] [facility], [place], [address], [place] - [facility] - [place] & [place] 12/25/2022 06:15:50 01/15/2023 text/html The patient is [...] Multiple*Imaging/St udies: Lumbar MRI. LIZZ CARROLL PA-C [address] [facility], [place], [address], [facility] [[email or web address] - [place] - [place] & [place] 01/16/2023 13:42:15 02/20/2023 text/html The patient is [...] injections successful short term. Pain today is 06/09. _ __ __ __ __ __ __ __ __ __ __ __ __ __ __ __ __ __ __ __ __ __ __ __ __ __ __ __ _*Onset: Chronic*Context: Worsening*Character : Sharp/ache, tightness/spasm, and numbness/tingling.* Location: Low back/buttock and BLE*Duration: Constant with fluctuations*Intens ity: 2/10*Worse: N/A*Better: N/A*Associated symptoms: Denies saddle anaesthesia, denies acute bowel/bladder changes, denies acute power loss.*ADLs: The patient's pain interferes with daily chores, exercise, sleep, relationships, and walking.*Current Pain Medications: Tramadol*Prior Pain Medications: N/A*NSAIDS/OTC: None*Non-interventi onal Tx: None*Physical Therapy: None*Interventional Tx: Multiple*Surgery: Multiple*Imaging/St udies: Lumbar MRI. DAHLIA STEARNS [address] [facility], [place], [address] & [place] 02/21/2023 10:07:50 05/25/2023 text/html The patient is [...] Multiple*Imaging/St udies: Lumbar MRI. LIZZ CARROLL PA-C [address], [place], [address], [place] - [facility] - [place] & [place] 05/28/2023 10:24:49 OBGyn Episode No OBEpisode recorded.
== END 2024-08-06 23:59 | disposition home or self-care (01) ==
LOC: LAB.DROPOF 08-07 11:23
PROVIDERS: PCP Nurse Practitioner Family; Visit Provider Nurse Practitioner Family
DX: E11.65 Type 2 diabetes mellitus with hyperglycemia (principal); E03.9 Hypothyroidism, unspecified
CPT/HCPCS: 80053; 82043; 82570; 83036; 83735; 84439; 84443; 84481

== ENCOUNTER 2024-08-27 07:42 | Outpatient (CLI) | payer MEDICARE, SELFPAY ==
--- NOTE | 2024-08-27 | CA_ITS ---
APPROVED REPORT Exam: Pharmacologic Technologist: Maria Del Carmen Mendoza Ht: 5 ft 2 in Wt: 192 lbs BSA: 1.88 m2 HR: 89 bpm BP: 124/75 mmHg Stress Test Details Test: Lexiscan HR Resting HR: 89 bpm Max Heart Rate (APMHR): 153.988627 bpm Max HR Achieved: 105 bpm Target HR (85% APMHR): 130.836748 bpm % of APMHR: 68.63 Recovery HR: 92 bpm BP Resting BP: 124.0/75.0 mmHg Max BP: 138.0/73.0 mmHg Recovery BP: 122.0/65.0 mmHg ECG Stress ECG Conclusion Symptoms: Chest pressure, shortness of air, nauseated Arrhythmias/Ectopy: None ST-T Changes: EKG non-diagnostic Lexiscan Electronically signed by : Amita Rosales MD 08/27/2024 23:32:17
--- OUTSIDE RECORDS SUMMARY | 2024-08-27 07:44 | XMS_ITS | Data Portability ---
Author Organization [place] - [facility] - [place] & SAVANNA Calvo ADMIN Address [address] [place] [phone] Care Team Providers Care Hired Worker Name Role Phone SILVESTRE DAVIS Primary Care [...] __ __ __ __ __ _ GENE: [id number] I have reviewed patient's GENE report prior [...] __ __ __ __ __ _ GENE: 072968559 I have reviewed patient's GENE report prior to prescribing Schedule II, III, and IV medications that require review by law. [email or web address] Not available 12/25/2022 06:15:28 01/15/2023 01/15/2023 The [...] __ __ __ __ __ _ GENE: 666192898 I have reviewed patient's GENE report prior to prescribing Schedule II, III, and IV medications that require review by law. [email or web address] Not available 01/16/2023 13:41:06 02/20/2023 02/20/2023 The [...] __ __ __ __ __ _ GENE: 278250927 I have reviewed patient's GENE report prior [...] __ __ __ __ __ _ GENE: 901256844 I have reviewed patient's GENE report prior [...] substance, lumbar, sacral (PROC) - Caudal epidural. 36596. 2023 024 [email or web address] Yuniel Diaz MD, [address], [place], [address], 4 12:08:01 injection, trigger point (PROC) - TPI of the left lumbosacral region. 10280. 54638. 2023 024 [email or web address] Yuniel Diaz MD, [address], [place], [address], 4 16:17:28 injection, single, diagnostic or therapeutic substance, lumbar, sacral (PROC) - Caudal epidural. 38257. 2022 023 [email or web address] Yuniel Diaz MD, [address], [place], [address], 3 09:08:26 greater trochanteri c bursa injection (PROC) - 62679, 42756 right trochanteri c bursa 2022 023 [email or web address] Not available 3 15:24:17 Surgeries None recorded. Imaging XR, hip + pelvis, bilateral - Bilateral hip x-ray 2022 023 [email or web address] [facility], [facility]0 [facility], [place], [address], 3 15:52:55 XR, ankle + foot - Left foot/ankle x-ray 2022 023 [id number] [facility], [address] [facility], [place], [address], 3 15:52:55 Medication Orders None recorded. Patient TargetsNo targets recorded. Patient InstructionsNo instructions recorded. Reason for Referral None Reported. Results Created Date Observation Date Name Description Value Unit Range Abnormal Flag Note LastModifiedBy Organization Detail LastModifiedTime 12/23/19 23 12/22/2022 XR, pelvi s [facility] [address] [place] [address] Phone: Fax: Name: GERTRUDIS DALY Exam Date: : 957 Age 66 Gender : F Access ion: [id number] 5031 Physic kimberly: LIZZ CARROLL Facili ty: [facility] Facili ty HSV: Outpat ient Exam: PELVIS [...] Margarito Rios PA-C Dictat ed By: Brian Hyanes Transc ribed By: Brian Mccauley Transc ribed On: 023 11:50 AM Electr onical ly signed by: Brian Haynes Thank you for referr GERTRUDIS Infante to [facility] al. Legall y authen ticate d by PAULO PITTMAN 12-22 11:50: 50 CC'ed Logic: Orderi ng Provid er: CARLY ZAMUDIO Attend ing Provid er: CARLY ZAMUDIO Admitt ing Provid er: CARROLL LIZZ [facility] [address] [facility], [place], [address], 01/02/2023 12:02:22 12/23/19 23 12/22/2022 XR, hip, unila teral , 1 view [facility] [address] [place] [address] Phone: Fax: Name: GERTRUDIS DALY Exam Date: : [birth year]57 Age 66 Gender : F Access ion: [id number] 5031 Physic kimberly: LIZZ CARROLL Facili [...] Thank you for referr GERTRUDIS Infante to [facility] al. Legall y authen tickiran d by PAULO PITTMAN 12-22 11:57: 48 CC'ed Logic: Orderi ng Provid er: CARLY ZAMUDIO Attend ing Provid er: CARLY LIZZ Admitt ing Provid er: CARLY ZAMUDIO [email or web address] [facility] [address] [facility], [place], [address], 01/02/2023 12:02:23 12/23/19 23 12/22/2022 X[facility], hip, unila teral , [facility] [address] [place] [address] Phone: Fax: Name: GERTRUDIS DALY Exam Date: : [birth year]57 Age 66 Gender : F Access ion: [id number] 5031 Physic kimberly: LIZZ CARROLL Facili ty: [facility] Facili ty HSV: Outpat ient Exam: HIP [...] Thank you for referr GERTRUDIS Infante to [facility]. Legall y authen ticate d by PAULO PITTMAN 12-22 11:58: 58 CC'ed Logic: Orderi ng Provid er: CARLY ZAMUDIO Attend ing Provid er: CARLY Mcclure ing Provid er: CARLY ZAMUDIO [id number] [facility] [address] [facility], [place], [address], 01/02/2023 12:02:23 12/23/19 23 12/22/2022 XR, foot, 3 or more view [facility] [address] [place] [address] Phone: Fax: Name: GERTRUDIS DALY Exam Date: : [birth year]57 Age 66 Gender : F Access ion: [id number] 00 5031 Physic kimberly: LIZZ CARROLL ty: [facility] Facili ty HSV: Outpat ient Exam: FOOT [...] Thank you for referr GERTRUDIS Infante to [facility]. Legall y authen ticate d by PAULO PITTMAN 12-22 12:02: 57 CC'ed Logic: Orderi ng Provid er: CARLY ZAMUDIO Attend ing Provid er: CARLY ZAMUDIO Admitt ing Provid er: CARLY ZAMUDIO [email or web address] [facility] [address] [place] [address], [place], [address], 01/02/2023 12:02:23 12/23/19 23 12/22/2022 XR, ankle , 3 or more view [facility] [address] [place] [address] Phone: Fax: Name: GERTRUDIS DALY Exam Date: 023 : 9[birth year] Age 66 Gender : F Access ion: [id number] 00 5031 Physic kimberly: LIZZ CARROLL Facili ty: [facility] Facili ty HSV: Outpat ient Exam: ANKLE [...] ed By: Brian Haynes Transc ribed By: Brain Mccauley Transc ribed On: 023 12:03 PM Electr onical ly signed by: Brian Haynes 023 Thank you for referr ing GERTRUDIS DALY to [facility]. Legall y authen ticate d by PAULO PITTMAN 0 12-22 12:03: 33 CC'ed Logic: Orderi ng Provid er: CARLY ZAMUDIO Attend ing Provid er: CARLY ZAMUDIO Admitt ing Provid er: CARLY ZAMUDIO [email or web address] [facility] [address] [facility], [place], [address], 01/02/2023 12:02:24 Result Notes None recorded. Problems Name Problem SNOMED Code Status Onset Date Resolution Date Notes Provider Name and Address Organization Details Recorded Time Piriformis syndrome 739357660 Active 2021 Vy Calhoun null, [place] [facility] [place] 2 11:51:02 Myofascial pain 713527590 Active 2021 Vy Calh[place] [facility] [place] 2 11:51:10 Spinal stenosis of lumbar region 20621913 Active 2021 Vy Calh[place] [facility] [place] 2 11:51:26 Pain of bilateral hip joints 6603886174208 9100 Active 2021 Vy Calhoun [place] [facility] [place] 2 11:51:40 Bilateral trochanteri c bursitis 2980734482963 9109 Active 2021 Vy Cal[place] [facility] [place] 2 11:51:54 Piriformis syndrome 727656067 Active 2021 marylin haile [place] [facility] [place] 2 09:27:40 Meralgia paresthetic a 82506364 Active 2021 Aditi Hirsch [place] [facility] [place] 2 11:56:26 Ilioinguina l nerve neuritis 572050959 Active 2021 Vy Calhoun [place] [facility] [place] 2 12:45:32 Radiculitis due to rupture of lumbar interverteb ral disc 8787982996 Active 2022 Vy Calhoun [place] [facility] [place] 3 14:24:46 Lumbar post-saida ctomy syndrome 121216296 Active 2022 Vy Calhoun [place] [facility] [place] 3 09:17:06 Pain of right hip joint 8849196746149 02 Active 2022 Vy Campakins null[place] [facility] [place] 3 11:11:08 Pain in left foot 2872201792195 07 Active 2022 AIMEE Swenson [facility] & [place] 3 11:11:10 Problem Notes None recorded. Procedures Surgical History Date Name Laterality Status Provider Name and Address Organization Details Recorded Time 2 Injection Only completed Vy CORRALES [facility] & [place] 03/01/2022 12:53:33 hysterectomy completed [facility] Unique CORRALES [facility] & [place] 01/04/2022 11:54:35 Imaging Results None recorded. Procedure Notes None recorded. Medical Equipment None Reported. Allergies Allergen ID Allergen Name Allergen Category Reaction Reaction Severity Criticality Documentation Date Start Date Code Code System Note Provider Name and Address Organization Details Recorded Time 26998 metformin medicatio n Not available Not available Not available 01/02/2022 6809 RxNorm AIMEE Swenson [facility] & [place] 2 16:18:27 Medications Name Sig Start Date [...] Updated DateTime 4 157.48 cm 36.1 kg/m2 67197.8 5 g 97.4 [degF] 93 % 93 % 94 /min 150 mm[Hg] 80 mm[Hg] [facility] 4 08:30:50 Date Recorded Body height Body mass index (BMI) Body weight Body temperature Oxygen saturation Oxygen saturation in Arterial blood by Pulse oximetry Heart rate Systolic blood pressure Diastolic blood pressure Provider Name and Address Organization Details Last Updated DateTime 3 157.48 cm 34.2 kg/m2 49981.4 9 g 97.9 [degF] 96 % 96 % 99 /min 174 mm[Hg] 78 mm[Hg] Vy Calhoun [facility] 3 09:42:25 Date Recorded Body height Body mass index (BMI) Body weight Body temperature Oxygen saturation Oxygen saturation in Arterial blood by Pulse oximetry Heart rate Systolic blood pressure Diastolic blood pressure Provider Name and Address Organization Details Last Updated DateTime 3 157.48 cm 33.5 kg/m2 17874.1 2 g 97.1 [degF] 94 % 94 % 94 /min 169 mm[Hg] 77 mm[Hg] [facility] 3 10:09:42 Date Recorded Body height Body mass index (BMI) Body weight Body temperature Oxygen saturation Oxygen saturation in Arterial blood by Pulse oximetry Heart rate Systolic blood pressure Diastolic blood pressure Provider Name and Address Organization Details Last Updated DateTime 3 157.48 cm 33.5 kg/m2 45750.1 2 g 97.8 [degF] 94 % 94 % 84 /min 141 mm[Hg] 73 mm[Hg] Sarah Alonzo [place] - [facility] & [place] 3 10:51:12 Date Recorded Body height Body mass index (BMI) Body weight Body temperature Oxygen saturation Oxygen saturation in Arterial blood by Pulse oximetry Heart rate Systolic blood pressure Diastolic blood pressure Provider Name and Address Organization Details Last Updated DateTime 3 157.48 cm 32.9 kg/m2 28860.6 3 g 97.2 [degF] 95 % 95 % 96 /min 149 mm[Hg] 72 mm[Hg] Sarah Rosado [place] - [facility] & [place] 3 12:32:07 Social History None recorded. Functional Status None [...] Response Coronary Artery Disease N Gout N Hernia N Head Trauma/Injury N Thyroid Problems N Depression Y COPD N Anemia N Ulcers N Heart Attack ([place]) N Diabetes Y Anxiety Disorder Y Bleeding Disorder N Arthritis N Tuberculosis N AIDS/HIV N Acid Reflux (GERD) N Cancer N Stroke N Asthma N Substance Abuse N Back Injury N High Cholesterol Y Hepatitis N Liver Disease N Heart Disease N Headaches N Fibromyalgia N Hypertension Y Osteoporosis N Kidney Disease N Gynecological HistoryNo gynecological history recorded. Obstetrics History GPAL:G 0 P 0 0 0 0 Past Encounters Encounter ID Performer Location Encounter Start Date Encounter Closed Date Diagnosis/Indication Diagnosis SNOMED-CT Code Diagnosis ICD10 Code Diagnosis Note [id number] Yuniel Diaz MD [facility] [address] [facility] e [address] [place] [id number] 4 01/05/2022 13:03:21 01/05/2022 13:37:54 Myofascial pain 713511344 M79.10 Piriformis syndrome 1291 42542 G57.03 Spinal sj nosis of lumbar region 25466334 M99.53 M48.061 Pain of bi lateral hip joints 2862582357 8605966 M25.551 M25.552 Bilateral trochanteric bursitis 7795614212 3430845 M70.61 M70.62 [id number] LIZZ CARROLL PA-C [facility] [address] [address] 02/09/2022 10:57:38 02/09/2022 11:46:18 Myofascial pain 104710328 M79.10 Piriformis syndrome 1291 53250 G57.03 Spinal sj nosis of lumbar region 47713608 M99.53 M48.061 Pain of bi lateral hip joints 8938135724 9342869 M25.551 M25.552 Bilateral trochanteric bursitis 3545330658 4781898 M70.61 M70.62 Meralgia paresthetica 85 843224 G57.11 [id number] Yuniel Diaz MD [facility] [address] [place] [id number] 4 03/01/2022 08:08:52 03/01/2022 08:47:55 Meralgia paresthetica 82333205 G57.11 Ilioinguin al nerve neuritis 752581941 G57.81 [id number] Yuniel Diaz MD [facility] [address] [place] [id number] 4 03/16/2022 09:37:19 03/16/2022 10:41:07 Myofascial pain 347791269 M79.10 Piriformis syndrome 1291 85707 G57.03 Spinal sj nosis of lumbar region 93266226 M99.53 M48.061 Pain of bi lateral hip joints 1374573645 1664759 M25.551 M25.552 Bilateral trochanteric bursitis 2206616681 2493304 M70.61 M70.62 Meralgia paresthetica 85 828112 G57.11 Radiculiti s due to rupture of lumbar intervertebral disc 0619728525 M51.16 [id number] Yuniel Diaz MD [facility] [address] [address] 4 05/18/2022 13:56:21 05/18/2022 15:37:22 Myofascial pain 572812544 M79.10 Piriformis syndrome 1291 73931 G57.03 Radiculiti s due to rupture of lumbar intervertebral disc 4749985783 M51.16 Spinal sj nosis of lumbar region 23631216 M99.53 M48.061 Pain of bi lateral hip joints 9490063328 7373094 M25.551 M25.552 Bilateral trochanteric bursitis 5991856467 3192699 M70.61 M70.62 Meralgia paresthetica 85 578224 G57.11 Lumbar post-laminectomy syndrome 063361739 M96.1 [id number] Yuniel Diaz MD [facility] [address] [place] [id number] 10/10/2022 14:48:07 10/10/2022 15:41:02 Myofascial pain 378985899 M79.10 Piriformis syndrome 1291 58807 G57.03 Radiculiti s due to rupture of lumbar intervertebral disc 5480069838 M51.16 Spinal sj nosis of lumbar region 85673930 M99.53 M48.061 Pain of bi lateral hip joints 2497165997 6401497 M25.551 M25.552 Bilateral trochanteric bursitis 7906328302 2925026 M70.61 M70.62 Meralgia paresthetica 85 296631 G57.11 Lumbar post-laminectomy syndrome 085363930 M96.1 [id number] Yuniel Diaz MD [facility] [address] [place] [address] 4 11/14/2022 09:25:21 11/14/2022 11:29:44 Myofascial pain 082962703 M79.10 Piriformis syndrome 1291 47200 G57.03 Radiculiti s due to rupture of lumbar intervertebral disc 1873639363 M51.16 Spinal sj nosis of lumbar region 42700481 M99.53 M48.061 Pain of bi lateral hip joints 7330620659 6825164 M25.551 M25.552 Bilateral trochanteric bursitis 8451426125 8707449 M70.61 M70.62 Meralgia paresthetica 85 840323 G57.11 Lumbar post-laminectomy syndrome 962571552 M96.1 [id number] Yuniel Diaz MD [facility] [address] [place] [id number] 4 12/22/2022 09:58:16 12/22/2022 10:28:45 Myofascial pain 641416495 M79.10 Piriformis syndrome 1291 58683 G57.03 Radiculiti s due to rupture of lumbar intervertebral disc 3566521275 M51.16 Spinal sj nosis of lumbar region 42969401 M99.53 M48.061 Pain of bi lateral hip joints 8465794274 8369797 M25.551 M25.552 Bilateral trochanteric bursitis 0922726399 8545158 M70.61 M70.62 Meralgia paresthetica 85 482281 G57.11 Lumbar post-laminectomy syndrome 942098362 M96.1 Pain of ri ght hip joint 2158196030 03208 M25.551 Pain in left foot 416140 4036 87992 M79.672 [id number] LIZZ CARROLL PA-C [facility] [address] [place] [id number] 4 01/15/2023 10:38:58 01/15/2023 11:45:30 Myofascial pain 587469181 M79.10 Piriformis syndrome 1291 69601 G57.03 Radiculiti s due to rupture of lumbar intervertebral disc 3210022885 M51.16 Spinal sj nosis of lumbar region 04050393 M99.53 M48.061 Pain of bi lateral hip joints 6583523966 5898344 M25.551 M25.552 Bilateral trochanteric bursitis 1760014812 9712001 M70.61 M70.62 Meralgia paresthetica 85 346760 G57.11 Lumbar post-laminectomy syndrome 054429772 M96.1 Pain of ri ght hip joint 4098016395 42518 M25.551 Pain in left foot 615590 9058 35840 M79.672 [id number] Yuniel Diaz MD [facility] [address] [address] 02/20/2023 11:10:19 02/20/2023 11:33:52 Myofascial pain 338757179 M79.10 Piriformis syndrome 1291 84144 G57.03 Radiculiti s due to rupture of lumbar intervertebral disc 0024378705 M51.16 Spinal sj nosis of lumbar region 20668255 M99.53 M48.061 Pain of bi lateral hip joints 4807046823 8940983 M25.551 M25.552 Bilateral trochanteric bursitis 5953159658 8186581 M70.61 M70.62 Meralgia paresthetica 85 961303 G57.11 Lumbar post-laminectomy syndrome 275171084 M96.1 Pain of ri ght hip joint 1104191554 53558 M25.551 Pain in left foot 658613 7634 95494 M79.672 [id number] LIZZ CARROLL PA-C [facility] [address] [address] 4 05/25/2023 08:05:48 05/25/2023 09:10:23 Myofascial pain 029557155 M79.10 Piriformis syndrome 1291 60589 G57.03 Radiculiti s due to rupture of lumbar intervertebral disc 7439631409 M51.16 Spinal sj nosis of lumbar region 37658130 M99.53 M48.061 Pain of bi lateral hip joints 0895979232 6070287 M25.551 M25.552 Bilateral trochanteric bursitis 7989446025 5986406 M70.61 M70.62 Meralgia paresthetica 85 431981 G57.11 Lumbar post-laminectomy syndrome 695865275 M96.1 Pain of ri ght hip joint 6667359297 95497 M25.551 Pain in left foot 223017 0145 30695 M79.672 Spinal ent hesopathy of lumbosacral region 5802994016 94417 M46.07 Health Concerns Section Related Observation LastModified by Organization Detai ls LastModified Time None Recorded Concern Status LastModified by Organization Details LastModified Time None Recorded Advance Directives Directive None Recorded Payers Insurance Date Sequence Insurance Name Policy Number Policy Cannon Covered Member ID Cannon Member ID Guarantor Name 10/20/2023 1 [facility] (MEDICARE REPLACEMENT/A DVANTAGE - PPO) [id number] Gertrudis Daly [id number] Gertrudis Daly 04/21/2022 1 [employer] (MEDICARE REPLACEMENT/A DVANTAGE - PPO) Essence Daly [id number] Gertrudis Daly 05/30/2021 1 [employer] [id number] Essence Daly [id number] Gertrudis Daly Notes Date Note Type Note [...] prescribed by Dr. Davis. Pain today is 5/10 Patient is still [...] udies: Lumbar MRI. DAHLIA STEARNS [address] , [place], [address], [place] [facility] [place] & [place] 11/20/2022 14:25:52 12/22/2022 text/html The patient is a 67 year old female referred by Dr. Lane Villabla for chronic pain management. The patient has [...] trauma. Today the pain level is a 5/10._ __ __ __ __ __ __ __ [...] Multiple*Imaging/St udies: Lumbar MRI. LIZZ CARROLL PA-C [address], [place], [address], [facility] & [place] 12/25/2022 06:15:50 01/15/2023 text/html The patient is [...] trauma. Today the pain level is a 6/10._ __ __ __ __ __ __ __ [...] Multiple*Imaging/St udies: Lumbar MRI. LIZZ CARROLL PA-C [address], [place], [address], [place] - [facility] & [place] 01/16/2023 13:42:15 02/20/2023 text/html The patient is [...] Multiple*Surgery: Multiple*Imaging/St udies: Lumbar MRI. [address], [place], [address], [facility] - [place] & [place] 02/21/2023 10:07:50 05/25/2023 text/html The patient is [...] Multiple*Imaging/St udies: Lumbar MRI. LIZZ CARROLL PA-C [address], [place], [address], [place] [facility] [place] & [place] 05/28/2023 10:24:49 OBGyn Episode No OBEpisode recorded.
--- OUTSIDE RECORDS SUMMARY | 2024-08-27 07:44 | XMS_ITS | Data Portability ---
Author Organization AIMEE JEANNIE [facility] [place] [facility] Address [address] [place] [address] Care Team Providers Care Machine Guide Base Winder Name Role Phone ARIEL LIZARRAGA Primary Care Provider Assessment No assessment recorded. Plan of Treatment Reminders Order Date Submit Date Provider Last Modified By Organization Details Last Modified Time Details Appointments RECHECK 2024 01:30P M SHABANA LAM PA-C Not available Not available Not available Lab urinalysi s panel, auto 2024 025 [email or web address] [facility], [address], [place], [address], 04/30/2024 13:50:54 urinalysi s panel, auto 2022 023 [email or web address] [facility], [address], [place], [address], 01/10/2023 23:56:51 urinalysi s panel, auto 2022 023 [email or web address] [facility], [address], [place], [address], 05/16/2022 10:24:13 culture, urine 2022 023 [email or web address] [facility], [address] [place] [address] [place], [address], 05/16/2022 10:24:13 urinalysi s panel, auto 2021 022 [email or web address] [facility], [address], [place], [address], 11/08/2021 14:43:13 Referral None recorded. Procedures None recorded. Surgeries None recorded. Imaging None recorded. Medication Orders cefuroxim e axetil 500 mg tablet 2024 025 FRITZ [facility], [address], [place], [id number], 04/30/2024 13:50:55 bethanech ol chloride 50 mg tablet 2024 025 FRITZ [facility], [address], [place], [place], [id number], 04/30/2024 13:50:55 cefuroxim e axetil 500 mg tablet 2022 023 [email or web address] [facility], [address], [place], [place], [id number], 04/30/2024 13:26:12 Patient TargetsNo targets recorded. Patient Instructions Encounter Date Encounter Id Patient Instructions Last Modified By Organization Details Last Modified Time 11/08/2021 [id number] learning about h ealthy weight breana Not available 11/08/2021 14:43:13 06/26/2024 [id number] 1. Laryngoscopy flex performed in office today. 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 Advised patient that singing can worsen acid reflux 6. F/u prn - [place] [facility] 06/26/2024 11:49:30 Reason for Referral None Reported. Results Created Date Observation Date Name Description Value Unit Range Abnormal Flag Note LastModifiedBy Organization Detail LastModifiedTime 11/09/19 22 11/08/2021 urina lysis panel , auto Unknown Analyte Clean Catch Not Available [facility] [address], [place], [address], 11/08/2021 14:26:03 11/09/19 22 11/08/2021 urina lysis panel , auto Unknown Analyte Yellow Not Available [facility] [address], [place], [address], 11/08/2021 14:26:03 11/09/19 22 11/08/2021 urina lysis panel , auto Unknown Analyte Cloudy Not Available [facility] [address], [place], [address], 11/08/2021 14:26:03 11/09/19 22 11/08/2021 urina lysis panel , auto Unknown Analyte 1.015 Not Available [facility] [address], [place], [address], 11/08/2021 14:26:03 11/09/19 22 11/08/2021 urina lysis panel , auto Unknown Analyte 1.003- 1.035 Not Available [facility] [address], [place], [address], 11/08/2021 14:26:03 11/09/19 22 11/08/2021 urina lysis panel , auto Unknown Analyte 5.0 Not Available [facility] [address], [place], [address], 11/08/2021 14:26:03 11/09/19 22 11/08/2021 urina lysis panel , auto Unknown Analyte 5.0-8. 0 Not Available [facility] [address], [place], [address], 11/08/2021 14:26:03 11/09/19 22 11/08/2021 urina lysis panel , auto Unknown Analyte Negati ve Not Available [facility] [address], [place], [address], 11/08/2021 14:26:03 11/09/19 22 11/08/2021 urina lysis panel , auto Unknown Analyte Negati ve Not Available [facility] [address], [place], [address], 11/08/2021 14:26:03 11/09/19 22 11/08/2021 urina lysis panel , auto Unknown Analyte Negati ve Not Available [facility] [address], [place], [address], 11/08/2021 14:26:03 11/09/19 22 11/08/2021 urina lysis panel , auto Unknown Analyte Negati ve Not Available [facility] [address], [place], [address], 11/08/2021 14:26:03 11/09/19 22 11/08/2021 urina lysis panel , auto Unknown Analyte Negati ve Not Available [facility] [address], [place], [address], 11/08/2021 14:26:03 11/09/19 22 11/08/2021 urina lysis panel , auto Unknown Analyte Negati ve Not Available [facility] [address], [place], [address], 11/08/2021 14:26:03 11/09/19 22 11/08/2021 urina lysis panel , auto Unknown Analyte Normal Not Available [facility] [address], [place], [address], 11/08/2021 14:26:03 11/09/19 22 11/08/2021 urina lysis panel , auto Unknown Analyte Normal Not Available [facility] [address], [place], [address], 11/08/2021 14:26:03 11/09/19 22 11/08/2021 urina lysis panel , auto Unknown Analyte Negati ve Not Available [facility] [address], [place], [address], 11/08/2021 14:26:03 11/09/19 22 11/08/2021 urina lysis panel , auto Unknown Analyte Negati ve Not Available [facility] [address], [place], [address], 11/08/2021 14:26:03 11/09/19 22 11/08/2021 urina lysis panel , auto Unknown Analyte Normal Not Available [facility] [address], [place], [address], 11/08/2021 14:26:03 11/09/19 22 11/08/2021 urina lysis panel , auto Unknown Analyte Normal 1 mg/dl Not Available [facility] [address], [place], [address], 11/08/2021 14:26:03 11/09/19 22 11/08/2021 urina lysis panel , auto Unknown Analyte Negati ve Not Available [facility] [address], [place], [address], 11/08/2021 14:26:03 11/09/19 22 11/08/2021 urina lysis panel , auto Unknown Analyte Negati ve Not Available [facility] [address], [place], [address], 11/08/2021 14:26:03 11/09/19 22 11/08/2021 urina lysis panel , auto Unknown Analyte Negati ve Not Available [facility] [address], [place], [address], 11/08/2021 14:26:03 11/09/19 22 11/08/2021 urina lysis panel , auto Unknown Analyte Negati ve Not Available [facility] [address], [place], [address], 11/08/2021 14:26:03 05/12/19 23 05/12/2022 URINE CULTU RE results Sourc e: CCUR Colle cted: 05/12 12:59 Site: Recei stephanie : 05/12 14:23 URINE CULTU RE FINAL 05/15 11:05 05/13 ISOLA TE #1 COLON Y COUNT : > 100,0 00 CFU/M L Proba ble Gram Negat marta Bacil faisal. ID and sensi tivit y in progr ess. 05/15 See [place] [facility] Resul t(s) Below ISOLA DANIELE AND SENSI TIVIT Y RESUL TS [place] [facility] 01 Esche rocio a coli __ [place] [facility] ORG# 01 ANTIB IOTIC S LUIS [...] th/T[place]oco lfa <=2/3 8 S Not Available [facility] [address], [place], [address], 05/15/2022 11:05:53 05/12/19 23 05/12/2022 urina lysis panel , auto Unknown Analyte Clean Catch Not Available [facility] [address], [place], [address], 05/12/2022 12:40:54 05/12/19 23 05/12/2022 urina lysis panel , auto Unknown Analyte Yellow Not Available [facility] [address], [place], [address], 05/12/2022 12:40:54 05/12/19 23 05/12/2022 urina lysis panel , auto Unknown Analyte Clear Not Available [facility] [address], [place], [address], 05/12/2022 12:40:54 05/12/19 23 05/12/2022 urina lysis panel , auto Unknown Analyte 1.010 Not Available [facility] [address], [place], [address], 05/12/2022 12:40:54 05/12/19 23 05/12/2022 urina lysis panel , auto Unknown Analyte 1.003- 1.035 Not Available [facility] [address], [place], [address], 05/12/2022 12:40:54 05/12/19 23 05/12/2022 urina lysis panel , auto Unknown Analyte 7.0 Not Available [facility] [address], [place], [address], 05/12/2022 12:40:54 05/12/19 23 05/12/2022 urina lysis panel , auto Unknown Analyte 5.0-8. 0 Not Available [facility] [address], [place], [address], 05/12/2022 12:40:54 05/12/19 23 05/12/2022 urina lysis panel , auto Unknown Analyte Negati ve Not Available [facility] [address], [place], [address], 05/12/2022 12:40:54 05/12/19 23 05/12/2022 urina lysis panel , auto Unknown Analyte Negati ve Not Available [facility] [address], [place], [address], 05/12/2022 12:40:54 05/12/19 23 05/12/2022 urina lysis panel , auto Unknown Analyte Negati ve Not Available [facility] [address], [place], [address], 05/12/2022 12:40:54 05/12/19 23 05/12/2022 urina lysis panel , auto Unknown Analyte Negati ve Not Available [facility] [address], [place], [address], 05/12/2022 12:40:54 05/12/19 23 05/12/2022 urina lysis panel , auto Unknown Analyte Negati ve Not Available [facility] [address], [place], [address], 05/12/2022 12:40:54 05/12/19 23 05/12/2022 urina lysis panel , auto Unknown Analyte Negati ve Not Available [facility] [address], [place], [address], 05/12/2022 12:40:54 05/12/19 23 05/12/2022 urina lysis panel , auto Unknown Analyte Normal Not Available [facility] [address], [place], [address], 05/12/2022 12:40:54 05/12/19 23 05/12/2022 urina lysis panel , auto Unknown Analyte Normal Not Available [facility] [address], [place], [address], 05/12/2022 12:40:54 05/12/19 23 05/12/2022 urina lysis panel , auto Unknown Analyte Negati ve Not Available [facility] [address], [place], [address], 05/12/2022 12:40:54 05/12/19 23 05/12/2022 urina lysis panel , auto Unknown Analyte Negati ve Not Available [facility] [address], [place], [address], 05/12/2022 12:40:54 05/12/19 23 05/12/2022 urina lysis panel , auto Unknown Analyte Normal Not Available [facility] [address], [place], [address], 05/12/2022 12:40:54 05/12/19 23 05/12/2022 urina lysis panel , auto Unknown Analyte Normal 1 mg/dl Not Available [facility] [address], [place], [address], 05/12/2022 12:40:54 05/12/19 23 05/12/2022 urina lysis panel , auto Unknown Analyte Negati ve Not Available [facility] [address], [place], [address], 05/12/2022 12:40:54 05/12/19 23 05/12/2022 urina lysis panel , auto Unknown Analyte Negati ve Not Available [facility] [address], [place], [address], 05/12/2022 12:40:54 05/12/1905/12/2022 urina lysis panel , auto Unknown Analyte Negati ve Not Available [facility] [address], [place], [address], 05/12/2022 12:40:54 05/12/1905/12/2022 urina lysis panel , auto Unknown Analyte Negati ve Not Available [facility] [address], [place], [address], 05/12/2022 12:40:54 01/10/2001/09/2023 urina lysis panel , auto Unknown Analyte Clean Catch Not Available [facility] [address], [place], [address], 01/09/2023 16:33:55 01/10/2001/09/2023 urina lysis panel , auto Unknown Analyte Yellow Not Available [facility] [address], [place], [address], 01/09/2023 16:33:55 01/10/2001/09/2023 urina lysis panel , auto Unknown Analyte Clear Not Available [facility] [address], [place], [address], 01/09/2023 16:33:55 01/10/2001/09/2023 urina lysis panel , auto Unknown Analyte 1.010 Not Available [facility] [address], [place], [address], 01/09/2023 16:33:55 01/10/2001/09/2023 urina lysis panel , auto Unknown Analyte 1.003- 1.035 Not Available [facility] [address], [place], [address], 01/09/2023 16:33:55 01/10/2001/09/2023 urina lysis panel , auto Unknown Analyte 6.0 Not Available [facility] [address], [place], [address], 01/09/2023 16:33:55 01/10/2001/09/2023 urina lysis panel , auto Unknown Analyte 5.0-8. 0 Not Available [facility] [address], [place], [address], 01/09/2023 16:33:55 01/10/2001/09/2023 urina lysis panel , auto Unknown Analyte Negati ve Not Available [facility] [address], [place], [address], 01/09/2023 16:33:55 01/10/2001/09/2023 urina lysis panel , auto Unknown Analyte Negati ve Not Available [facility] [address], [place], [address], 01/09/2023 16:33:55 01/10/2001/09/2023 urina lysis panel , auto Unknown Analyte Negati ve Not Available [facility] [address], [place], [address], 01/09/2023 16:33:55 01/10/2001/09/2023 urina lysis panel , auto Unknown Analyte Negati ve Not Available [facility] [address], [place], [address], 01/09/2023 16:33:55 01/10/2001/09/2023 urina lysis panel , auto Unknown Analyte Negati ve Not Available [facility] [address], [place], [address], 01/09/2023 16:33:55 01/10/2001/09/2023 urina lysis panel , auto Unknown Analyte Negati ve Not Available [facility] [address], [place], [address], 01/09/2023 16:33:55 01/10/2001/09/2023 urina lysis panel , auto Unknown Analyte Normal Not Available [facility] [address], [place], [address], 01/09/2023 16:33:55 01/10/2001/09/2023 urina lysis panel , auto Unknown Analyte Normal Not Available [facility] [address], [place], [address], 01/09/2023 16:33:55 01/10/2001/09/2023 urina lysis panel , auto Unknown Analyte 15 mg/dl (Sm) Not Available [facility] [address], [place], [address], 01/09/2023 16:33:55 01/10/2001/09/2023 urina lysis panel , auto Unknown Analyte Negati ve Not Available [facility] [address], [place], [address], 01/09/2023 16:33:55 01/10/2001/09/2023 urina lysis panel , auto Unknown Analyte 1 mg/dl Not Available [facility] [address], [place], [address], 01/09/2023 16:33:55 01/10/20 23 01/09/2023 urina lysis panel , auto Unknown Analyte Normal 1 mg/dl Not Available [facility] [address], [place], [address], 01/09/2023 16:33:55 01/10/2001/09/2023 urina lysis panel , auto Unknown Analyte Negati ve Not Available [facility] [address], [place], [address], 01/09/2023 16:33:55 01/10/2001/09/2023 urina lysis panel , auto Unknown Analyte Negati ve Not Available [facility] [address], [place], [address], 01/09/2023 16:33:55 01/10/20 23 01/09/2023 urina lysis panel , auto Unknown Analyte Negati ve Not Available [facility] [address], [place], [address], 01/09/2023 16:33:55 01/10/20 23 01/09/2023 urina lysis panel , auto Unknown Analyte Negati ve Not Available [facility] [address], [place], [address], 01/09/2023 16:33:55 04/30/19 25 04/30/2024 urina lysis panel , auto Unknown Analyte Clean Catch Not Available [facility] [address], [place], [address], 04/30/2024 13:16:28 04/30/19 25 04/30/2024 urina lysis panel , auto Unknown Analyte Yellow Not Available [facility] [address], [place], [address], 04/30/2024 13:16:28 04/30/19 25 04/30/2024 urina lysis panel , auto Unknown Analyte Clear Not Available [facility] [address], [place], [address], 04/30/2024 13:16:28 04/30/19 25 04/30/2024 urina lysis panel , auto Unknown Analyte 1.005 Not Available [facility] [address], [place], [address], 04/30/2024 13:16:28 04/30/19 25 04/30/2024 urina lysis panel , auto Unknown Analyte 1.003- 1.035 Not Available [facility] [address], [place], [address], 04/30/2024 13:16:28 04/30/19 25 04/30/2024 urina lysis panel , auto Unknown Analyte 8.0 Not Available [facility] [address], [place], [address], 04/30/2024 13:16:28 04/30/19 25 04/30/2024 urina lysis panel , auto Unknown Analyte 5.0-8. 0 Not Available [facility] [address], [place], [address], 04/30/2024 13:16:28 04/30/19 25 04/30/2024 urina lysis panel , auto Unknown Analyte Negati ve Not Available [facility] [address], [place], [address], 04/30/2024 13:16:28 04/30/19 25 04/30/2024 urina lysis panel , auto Unknown Analyte Negati ve Not Available [facility] [address], [place], [address], 04/30/2024 13:16:28 04/30/19 25 04/30/2024 urina lysis panel , auto Unknown Analyte Negati ve Not Available [facility] [facility] [address], [place], [address], 04/30/2024 13:16:28 04/30/19 25 04/30/2024 urina lysis panel , auto Unknown Analyte Negati ve Not Available [facility] [address], [place], [address], 04/30/2024 13:16:28 04/30/19 25 04/30/2024 urina lysis panel , auto Unknown Analyte Negati ve Not Available [facility] [address], [place], [address], 04/30/2024 13:16:28 04/30/19 25 04/30/2024 urina lysis panel , auto Unknown Analyte Negati ve Not Available [facility] [address], [place], [address], 04/30/2024 13:16:28 04/30/19 25 04/30/2024 urina lysis panel , auto Unknown Analyte Normal Not Available [facility] [address], [place], [address], 04/30/2024 13:16:28 04/30/19 25 04/30/2024 urina lysis panel , auto Unknown Analyte Normal Not Available [facility] [address], [place], [address], 04/30/2024 13:16:28 04/30/19 25 04/30/2024 urina lysis panel , auto Unknown Analyte Negati ve Not Available [facility] [address], [place], [address], 04/30/2024 13:16:28 04/30/19 25 04/30/2024 urina lysis panel , auto Unknown Analyte Negati ve Not Available [facility] [address], [place], [address], 04/30/2024 13:16:28 04/30/19 25 04/30/2024 urina lysis panel , auto Unknown Analyte Normal Not Available [facility] [address], [place], [address], 04/30/2024 13:16:28 04/30/19 25 04/30/2024 urina lysis panel , auto Unknown Analyte Normal 1 mg/dl Not Available [facility] [address], [place], [address], 04/30/2024 13:16:28 04/30/19 25 04/30/2024 urina lysis panel , auto Unknown Analyte Negati ve Not Available [facility] [address], [place], [address], 04/30/2024 13:16:28 04/30/19 25 04/30/2024 urina lysis panel , auto Unknown Analyte Negati ve Not Available [facility] [address], [place], [address], 04/30/2024 13:16:28 04/30/19 25 04/30/2024 urina lysis panel , auto Unknown Analyte Negati ve Not Available [facility] [address], [place], [address], 04/30/2024 13:16:28 04/30/19 25 04/30/2024 urina lysis panel , auto Unknown Analyte Negati ve Not Available [facility] [address], [place], [address], 04/30/2024 13:16:28 Result Notes None recorded. Problems No Known Problems Procedures Surgical History Date Name Laterality Status Provider Name and Address Organization Details Recorded Time 06/27/19 Laryngoscopy Flex completed Shabana Schoff [facility] 06/26/2024 11:43:41 06/16/19 Post Void Residual; Ultrasound completed Deseriee Mcmechen [facility] 06/16/2019 13:32:32 Back Surgery completed Mare Osborn [facility] 05/23/2019 10:25:14 Imaging Results None recorded. Procedure Notes None recorded. Medical Equipment None Reported. Allergies Allergen ID Allergen Name Allergen Category Reaction Reaction Severity Criticality Documentation Date Start Date Code Code System Note Provider Name and Address Organization Details Recorded Time 227392 metformin medicatio n Not available Not available Not available 05/23/2019 6809 RxNorm Mare mandujano [facility] 0 10:24:00 901887 latex environme nt,medica tion Not available Not available Not available 06/26/2024 41244 91 RxNorm Mona Praria [facility] 5 11:22:49 099156 Product containin g penicilli n (product) medicatio n Not available Not available Not available 06/26/2024 72970 8001 SNOMED Mona Praria [facility] 5 11:23:05 100827 Product containin g beta adrenergi c receptor antagonis t (product) medicatio n Not available Not available Not available 06/26/2024 69828 009 SNOMED Mona Praria [facility] 5 11:23:21 779817 spironola ctone medicatio n Not available Not available Not available 06/26/2024 9997 RxNorm Mona Hendricksonpaul [facility] 11:23:46 Medications Name Sig Start Date [...] Updated DateTime 04/30/2024 160.02 cm 32.4 kg/m2 91715.4 g Dorita Jung [facility] 04/30/2024 13:25:30 Date Recorded Body height Body mass index (BMI) Body weight Provider Name and Address Organization Details Last Updated DateTime 05/12/2022 160.02 cm 33.1 kg/m2 03467.77 g Dorita Jung [facility] 05/12/2022 12:40:34 Date Recorded Body height Body mass index (BMI) Body weight Body temperature Heart rate Systolic blood pressure Diastolic blood pressure Provider Name and Address Organization Details Last Updated DateTime 160.02 cm 34 kg/m2 89207.4 4 g 96.9 [degF] 124 /min 147 mm[Hg] 68 mm[Hg] Mona Мария [facility] 11:22:17 Date Recorded Body height Body mass index (BMI) Body weight Provider Name and Address Organization Details Last Updated DateTime 11/08/2021 157.48 cm 33.7 kg/m2 28316 g JoseRodriguezdedra Anne [facility] 11/08/2021 14:24:33 Date Recorded Body height Body mass index (BMI) Body weight Provider Name and Address Organization Details Last Updated DateTime 01/09/2023 160.02 cm 33.1 kg/m2 36288.77 g Ese Navarro [facility] 01/09/2023 16:03:46 Social History Question Answer Notes LastModified by Organizat ion Details LastModified Time Tobacco Smoking Status Never Smoker Mare Osborn [facility] 05/23/2019 10:24:18 How Much Tobacco Do You Chew? None Information not available 05/23/2019 Marital Status Informat ion not available 05/23/2019 What Is Your Relationship Status? [email or web address] Information not available 11/01/2020 Has Tobacco Cessation Counseling Been Provided? No [email or web address] Information not available 11/01/2020 Have You Recently Traveled Abroad? No [email or web address] Information not available 11/01/2020 Sex: Unknown Functional Status Question Answer Note LastModified by Organizat ion Details LastModified Time Do you use any illicit or recreational drugs? No [email or web address] Information not available 11/01/2020 Do you or have you ever used any other forms of tobacco or nicotine? No [email or web address] Information not available 11/01/2020 What is your level of alcohol consumption? None [email or web address] Information not available 05/23/2019 Mental Status None recorded. Family History Relationship Description Onset Age of this Age Resolved Age Notes LastModified by Organization Details LastModified Time Father No current problems or disability [email or web address] Not available 10:24:12 Mother No current problems or disability [email or web address] Not available 10:24:12 Medical History Condition Response Diabetes Y Hypertension Y Sleep Apnea Y Heart Arrhythmia Y Gynecological HistoryNo gynecological history recorded. Obstetrics History GPAL:G 0 P 0 0 0 0 Past Encounters Encounter ID Performer Location Encounter Start Date Encounter Closed Date Diagnosis/Indication Diagnosis SNOMED-CT Code Diagnosis ICD10 Code Diagnosis Note [id number] MELIZA DOWNS MD [facility] [address] [place] [address] 05/13/2019 12:58:50 05/15/2019 11:14:11 [id number] MD JAM [facility] [address] [place] [address] 05/23/2019 09:54:44 05/23/2019 10:49:30 Retention of urine 272155187 R33.9 follow-up 2-3 weeks Neurogenic urinary bladder 722066459 N31.9 plan as above [id number] MD [facility]AM [facility] [address] [place] [address] 06/16/2019 12:28:58 06/16/2019 13:45:00 Retention of urine 964230044 R33.9 follow-up 2-3 weeks Neurogenic urinary bladder 404925805 N31.9 plan as above, we discussed that it may be several weeks for hopeful return of normal bladder function. She presented self catheteriz ation and continue with Urecholine follow-up 2 months [id number] MD JAM [facility] [address] [place] [address] 08/18/2019 13:04:34 08/18/2019 13:59:16 Neurogenic dysfunction of urinary bladder 844690146 N31.9 plan as above follow-up 2 months [id number] LESLIE CAMPUZANO MD [facility] [address] [address] 10/20/2019 14:28:53 10/20/2019 16:03:52 Neurogenic dysfunction of urinary bladder 787711370 N31.9 plan as above follow-up 3 months [id number] LESLIE CAMPUZANO MD [facility] [address] [place] [address] 0 04/19/2020 10:57:00 04/19/2020 11:34:35 Urinary tract infectious disease 21821533 N39.0 Neurogenic dysfunction of urinary bladder 950296360 N31.9 plan as above follow-up 6 months . Continue bethanecho l and intermitte nt self-chantell terization 3 times per day [id number] LESLIE CAMPUZANO MD [facility] [address] [place] [address] 0 11/01/2020 14:25:12 11/01/2020 15:16:39 Urinary tract infectious disease 74573027 N39.0 Neurogenic dysfunction of urinary bladder 434296904 N31.9 plan as above follow-up 6 months . Continue bethanecho l and intermitte nt self-chantell terization 3 times per day [id number] LESLIE CAMPUZANO MD [facility] [address] [place] [address] 01/31/2021 13:16:09 01/31/2021 13:49:54 Urinary tract infectious disease 08188728 N39.0 Neurogenic dysfunction of urinary bladder 114798808 N31.9 plan as above follow-up 6 months . Continue bethanecho l and intermitte nt self-chantell terization 3 times per day Retention of urine 07607 4002 R33.9 3 months [id number] LESLIE CAMPUZANO MD [facility] [address] [place] [address] 05/11/2021 15:07:24 05/11/2021 15:58:01 Neurogenic dysfunction of urinary bladder 711948443 N31.9 plan as above follow-up 6 months . Continue bethanecho l and intermitte nt self-chantell terization 3 times per day [id number] JUSTIN SHERMAN MD [facility] [address] [place] [address] 11/08/2021 14:03:07 11/08/2021 14:35:55 Retention of urine 623097763 R33.9 [id number] LESLIE CAMPUZANO MD [facility] [address] [place] [address] 05/12/2022 10:33:39 05/12/2022 15:33:04 Urinary tract infectious disease 58093616 N39.0 Chronic re tention of urine 424570813 R33.8 Continue with intermitte nt self-chantell terization and then a call [id number] LESLIE CAMPUZANO MD [facility] [address] [place], [place] [address] 01/09/2023 14:48:36 01/09/2023 16:32:05 Chronic retention of urine 848036567 R33.8 Continue with intermitte nt self-chantell terization and follow-up 1 year Chronic in fective cystitis 062736342 N30.20 [id number] LESLIE CAMPUZANO MD [facility] [address] [place] [address] 04/30/2024 13:10:08 04/30/2024 14:10:17 Chronic retention of urine 128857274 R33.8 Continue with intermitte nt self-chantell terization and follow-up 1 year Chronic in fective cystitis 344717034 N30.20 [id number] IRVIN FRANCOIS MD [place] [facility] [address] [place] [address] 06/26/2024 11:00:08 06/26/2024 11:49:59 Chronic cough 76940658 R05.3 Pain in throat 763806019 R07.0 Laryngopha ryngeal reflux 290003925 K21.9 06/26/24 - flex scope = erythema and evidence of acid kimble on the vocal cords Gastropare sis syndrome 135141064 K31.84 Health Concerns Section Related Observation LastModified by Organization Detai ls LastModified Time None Recorded Concern Status LastModified by Organization Details LastModified Time None Recorded Advance Directives Directive None Recorded Payers Insurance Date Sequence Insurance Name Policy Number Policy Cannon Covered Member ID Cannon Member ID Guarantor Name 06/26/2024 1 [facility] [id number] [employer]orner [id number] Gertrudis Split[employer]nd 06/26/2024 1 [employer] (MEDICARE REPLACEMENT/ ADVANTAGE - PPO) [id number] Gertrudis L Gonzalez [id number] Gertrudis Gonzalez 07/01/2024 1 [employer] (MEDICARE REPLACEMENT/ ADVANTAGE - PPO) [id number] Gertrudis L Gonzalez [id number] Gertrudis Gonzalez Notes Date Note Type Note [...] going to consider it JUSTIN SHERMAN MD [facility] [place], [address], [facility] 11/08/2021 14:43:39 05/12/2022 text/html Patient is here for scheduled 6Month follow-up. She continues to take bethanechol twice daily and perform intermittent catheterization 3 times per day. She had recent symptomatic urinary infection several weeks ago. Her urine today is unremarkable. She has some mild irritative symptoms. We will culture her urine. [place], [address], [facility] 05/16/2022 11:00:42 01/09/2023 text/html Patient is here [...] her to yearly follow-up LESLIE [facility]ANO [facility] [place], [address], [facility] 01/10/2023 23:57:23 04/30/2024 text/html Patient is here [...] medical regimen for now. LESLIE CAMPUZANO MD [facility] [place], [address], [facility] 04/30/2024 13:51:22 06/26/2024 text/html Gertrudis comes in today for an evaluation of chronic cough and severe throat pain when singing or raising her voice at the referral of VASILE Lizarraga. Her cough has been ongoing for a while, but the throat pain started approximately a month ago. She is a [employer] and it has been hard for her to sing in recent months. She denies the use of tobacco or alcohol. She does ingest caffeine daily - around 3 sodas a day. She also experiences constant mucus production in her eyes, nose, and throat. Of note, she takes Zyrtec daily. She also takes omeprazole every morning. She has a history of gastroparesis. [place], [address], [facility] 06/26/2024 13:09:05 OBGyn Episode No OBEpisode recorded.
--- NOTE | 2024-08-27 08:00 | NM_ITS ---
APPROVED REPORT Exam: Nuclear Stress Test Indication: Chest pain, SOB, HTN, DM, High cholesterol Patient Location: Outpatient Stress Tech: Maria Del Carmen Mendoza ND Tech:Ericka House, ARRT, RT (R)(N) Ht: 5 ft 2 in Wt: 187 lbs Bra Size: 38C HR: 88 bpm BP: 124/75 mmHg BSA: 1.86 m2 TID: 1.30 BMI: 34.1 History: Chest pain, SOB, HTN, DM, High cholesterol Procedure: Patient received 0.4 mg of intravenous Lexiscan, resting heart rate 88 bpm, resting blood pressure 124/75 mmHg, with Lexiscan maximum heart rate achieved was 105 bpm which is % of the maximum predicted heart rate and blood pressure was 123/71 mmHg. With Lexiscan, patient denied any complaint of chest pain. Cardiac Stress and Resting SPECT Images: Cardiac Stress and Resting SPECT images were obtained using technetium 99m Myoview 26.8 mCi stress and 10.52 mCi at rest. Raw images demonstrate significant GI radiotracer uptake in close proximity to the inferior LV wall. This may affect diagnostic interpretation of the study findings. Resting and stress imaging in supine and prone positions demonstrate no evidence of fixed or reversible perfusion defects. Gated imaging demonstrates normal global and regional LV systolic function. LVEF is calculated at 67%. Conclusion: No evidence of fixed or reversible perfusion defects. Gated imaging demonstrates normal global and regional LV systolic function. LVEF is calculated at 67%. Electronically signed by : Amita Rosales MD 08/27/2024 23:26:42
[2024-08-27] MEDS: REGADENOSON 0.4MG/5ML SYRINGE 0.4 MG IV (11:06)
[2024-08-27] MEDS: ISOTOPE MYOVIEW (PER STUDY) 1 DOSE IV (11:07)
[2024-08-27] MEDS: SODIUM CHLORIDE 0.9% 10ML SYR (RAD ONLY) 10 ML IV ×2 (11:07)
== END 2024-08-27 23:59 | disposition home or self-care (01) ==
LOC: RAD 07:42
PROVIDERS: PCP Nurse Practitioner Family; Visit Provider Internal Medicine
DX: I25.10 Atherosclerotic heart disease of native coronary artery without angina pectoris (principal); I10 Essential (primary) hypertension; E11.9 Type 2 diabetes mellitus without complications; E78.00 Pure hypercholesterolemia, unspecified
CPT/HCPCS: 78452; 93017; 93018; A9502; J2785

== ENCOUNTER → 2024-09-04 07:02 | Outpatient (CLI) | payer MEDICARE, SELFPAY ==
--- OUTSIDE RECORDS SUMMARY | 2024-09-04 07:05 | XMS_ITS | Data Portability ---
Author Organization [place] - [facility] [place] & SAVANNA Calvo ADMIN Address [address] [place] [address] Care Team Providers Care Behavior Therapist Name Role Phone SILVESTRE DAVIS Primary Care [...] __ __ __ __ __ _ GENE: [id number] I have reviewed patient's GENE report prior [...] __ __ __ __ __ _ GENE: 620469507 I have reviewed patient's GENE report prior to prescribing Schedule II, III, and IV medications that require review by law. [email or web address] Not available 12/25/2022 06:15:28 01/15/2023 01/15/2023 The [...] __ __ __ __ __ _ GENE: 100061791 I have reviewed patient's GENE report prior to prescribing Schedule II, III, and IV medications that require review by law. [email or web address] Not available 01/16/2023 13:41:06 02/20/2023 02/20/2023 The [...] __ __ __ __ __ _ GENE: 465538905 I have reviewed patient's GENE report prior [...] __ __ __ __ __ _ GENE: 440880682 I have reviewed patient's GENE report prior [...] substance, lumbar, sacral (PROC) - Caudal epidural. 90757. 2023 024 Yuniel Diaz MD, [address], [place], [address], 4 12:08:01 injection, trigger point (PROC) - TPI of the left lumbosacral region. 78660. 90225. 2023 024 [email or web address] Yuniel Diaz MD, [address], [place], [address], 4 16:17:28 injection, single, diagnostic or therapeutic substance, lumbar, sacral (PROC) - Caudal epidural. 30647. 2022 023 [email or web address] Yuniel Diaz MD, [address], [place], [address], 3 09:08:26 greater trochanteri c bursa injection (PROC) - 25244, 62378 right trochanteri c bursa 2022 023 [email or web address] Not available 3 15:24:17 Surgeries None recorded. Imaging XR, hip + pelvis, bilateral - Bilateral hip x-ray 2022 023 [facility], [facility], [place], [address], 3 15:52:55 XR, ankle + foot - Left foot/ankle x-ray 2022 023 [facility], [address] [facility], [place], [address], 3 15:52:55 Medication Orders None recorded. Patient TargetsNo targets recorded. Patient InstructionsNo instructions recorded. Reason for Referral None Reported. Results Created Date Observation Date Name Description Value Unit Range Abnormal Flag Note LastModifiedBy Organization Detail LastModifiedTime 12/23/19 23 12/22/2022 XR, pelvi s [facility] [address] [place] [address] Phone: Fax: Name: GERTRUDIS DALY Exam Date: : 957 Age 66 Gender : F Access ion: [id number] 5031 Physic kimberly: LIZZ CARROLL Facili ty: [facility] Facili ty HSV: Outpat ient Exam: [...] Thank you for referr GERTRUDIS Infante to [facility] al. Legall y authen ticate d by PAULO PITTMAN 12-22 11:50: 50 CC'ed Logic: Orderi ng Provid er: CARLY ZAMUDIO Attend ing Provid er: CARLY ZAMUDIO Admitt ing Provid er: CARROLL LIZZ [email or web address] [facility] - [facility] Therapy [address] [facility], [place], [address], 01/02/2023 12:02:22 12/23/19 23 12/22/2022 XR, hip, unila teral , 1 view [facility] [address] [place] [address] Phone: Fax: Name: GERTRUDIS DALY Exam Date: : 957 Age 66 Gender : F Access ion: [id number] 00 5031 Physic kimberly: LIZZ CARROLL Facili [...] Thank you for referr GERTRUDIS Infante to [facility] al. Legall y authen tickiran d by PAULO PITTMAN 12-22 11:57: 48 CC'ed Logic: Orderi ng Provid er: CARLY ZAMUDIO Attend ing Provid er: CARLY LIZZ Admitt ing Provid er: CARLY ZAMUDIO [email or web address] [facility] [address] [facility], [place], [address], 01/02/2023 12:02:23 12/23/19 23 12/22/2022 [facility] [address] [place] [address] Phone: Fax: Name: GERTRUDIS DALY Exam Date: : 957 Age 66 Gender : F Access ion: [id number] 00 5031 Physic kimberly: LIZZ CARROLL Facili ty: [facility] Facili ty HSV: Outpat ient Exam: [...] Thank you for referr GERTRUDIS Infante to [facility]. Legall y authen ticate d by PAULO PITTMAN 12-22 11:58: 58 CC'ed Logic: Orderi ng Provid er: CARLY ZAMUDIO Attend ing Provid er: CARLY Mcclure ing Provid er: CARLY ZAMUDIO [facility] [address] [facility], [place], [address], 01/02/2023 12:02:23 12/23/19 23 12/22/2022 XR, foot, 3 or more view [facility] [address] [place] [address] Phone: Fax: Name: GERTRUDIS DALY Exam Date: : [birth year]57 Age 66 Gender : F Access ion: [id number] 00 5031 Physic kimberly: LIZZ CARROLL ty: [facility] Facili ty HSV: Outpat ient Exam: [...] Thank you for referr GERTRUDIS Infante to [facility]. Legall y authen ticate d by PAULO PITTMAN 12-22 12:02: 57 CC'ed Logic: Orderi ng Provid er: CARLY ZAMUDIO Attend ing Provid er: CARLY ZAMUDIO Admitt ing Provid er: CARLY ZAMUDIO [email or web address] [facility] Therapy [address] [place] [address], [place], [address], 01/02/2023 12:02:23 12/23/19 23 12/22/2022 XR, ankle , 3 or more view [facility] [address] [facility] [place] [address] Phone: Fax: Name: GERTRUDIS DALY Exam Date: 023 : 957 Age 66 Gender : F Access ion: [id number] 00 5031 Physic kimberly: LIZZ CARROLL Facili ty: [facility] Facili ty HSV: Outpat ient Exam: [...] you for referr ing GERTRUDIS DALY to [facility]. Legall y authen ticate d by PAULO PITTMAN 0 12-22 12:03: 33 CC'ed Logic: Orderi ng Provid er: CARLY ZAMUDIO Attend ing Provid er: CARLY ZAMUDIO Admitt ing Provid er: CARLY ZAMUDIO [email or web address] [facility] [address] [facility], [place], [address], 01/02/2023 12:02:24 Result Notes None recorded. Problems Name Problem SNOMED Code Status Onset Date Resolution Date Notes Provider Name and Address Organization Details Recorded Time Piriformis syndrome 602051333 Active 2021 Vy Calhoun [place], [place] [facility] [place] 2 11:51:02 Myofascial pain 777088671 Active 2021 Vy Calhoun [place] [facility] [place] 2 11:51:10 Spinal stenosis of lumbar region 87478714 Active 2021 Vy Calh[place] [facility] [place] 2 11:51:26 Pain of bilateral hip joints 0670238715487 9100 Active 2021 Vy Calh[place] [facility] [place] 2 11:51:40 Bilateral trochanteri c bursitis 8068885538062 9109 Active 2021 Vy Cal[place] [facility] [place] 2 11:51:54 Piriformis syndrome 671877830 Active 2021 marylin haile [place] [facility] [place] 2 09:27:40 Meralgia paresthetic a 44090043 Active 2021 Aditi Hirsch [place] [facility] [place] 2 11:56:26 Ilioinguina l nerve neuritis 430196629 Active 2021 Vy Calhoun [place] [facility] [place] 2 12:45:32 Radiculitis due to rupture of lumbar interverteb ral disc 4662578383 Active 2022 Vy Calhoun [place] [facility] [place] 3 14:24:46 Lumbar post-saida ctomy syndrome 660305422 Active 2022 Vy Calhoun [place] [facility] [place] 3 09:17:06 Pain of right hip joint 9882524111975 02 Active 2022 Vy Campakins [place] [facility] [place] 3 11:11:08 Pain in left foot 4538619709774 07 Active 2022 AIMEE Swenson [facility] & [place] 3 11:11:10 Problem Notes None recorded. Procedures Surgical History Date Name Laterality Status Provider Name and Address Organization Details Recorded Time 2 Injection Only completed Vy CORRALES [facility] & [place] 03/01/2022 12:53:33 hysterectomy completed [facility] CORRALES [facility] & [place] 01/04/2022 11:54:35 Imaging Results None recorded. Procedure Notes None recorded. Medical Equipment None Reported. Allergies Allergen ID Allergen Name Allergen Category Reaction Reaction Severity Criticality Documentation Date Start Date Code Code System Note Provider Name and Address Organization Details Recorded Time 15347 metformin medicatio n Not available Not available Not available 01/02/2022 6809 RxNorm AIMEE Swenson [facility] & [place] 2 16:18:27 Medications Name Sig [...] Updated DateTime 4 157.48 cm 36.1 kg/m2 48134.8 5 g 97.4 [degF] 93 % 93 % 94 /min 150 mm[Hg] 80 mm[Hg] [facility] 4 08:30:50 Date Recorded Body height Body mass index (BMI) Body weight Body temperature Oxygen saturation Oxygen saturation in Arterial blood by Pulse oximetry Heart rate Systolic blood pressure Diastolic blood pressure Provider Name and Address Organization Details Last Updated DateTime 3 157.48 cm 34.2 kg/m2 95379.4 9 g 97.9 [degF] 96 % 96 % 99 /min 174 mm[Hg] 78 mm[Hg] Vy Calhoun [facility] 3 09:42:25 Date Recorded Body height Body mass index (BMI) Body weight Body temperature Oxygen saturation Oxygen saturation in Arterial blood by Pulse oximetry Heart rate Systolic blood pressure Diastolic blood pressure Provider Name and Address Organization Details Last Updated DateTime 3 157.48 cm 33.5 kg/m2 39568.1 2 g 97.1 [degF] 94 % 94 % 94 /min 169 mm[Hg] 77 mm[Hg] [facility] 3 10:09:42 Date Recorded Body height Body mass index (BMI) Body weight Body temperature Oxygen saturation Oxygen saturation in Arterial blood by Pulse oximetry Heart rate Systolic blood pressure Diastolic blood pressure Provider Name and Address Organization Details Last Updated DateTime 3 157.48 cm 33.5 kg/m2 00377.1 2 g 97.8 [degF] 94 % 94 % 84 /min 141 mm[Hg] 73 mm[Hg] Sarah Alonzo [place] - [facility] & [place] 3 10:51:12 Date Recorded Body height Body mass index (BMI) Body weight Body temperature Oxygen saturation Oxygen saturation in Arterial blood by Pulse oximetry Heart rate Systolic blood pressure Diastolic blood pressure Provider Name and Address Organization Details Last Updated DateTime 3 157.48 cm 32.9 kg/m2 84477.6 3 g 97.2 [degF] 95 % 95 % 96 /min 149 mm[Hg] 72 mm[Hg] Sarah Y[place] - [facility] & [place] 3 12:32:07 Social History None [...] Gout N Hernia N Head Trauma/Injury N Depression Y COPD N Anxiety Disorder Y Arthritis N Acid Reflux (GERD) N Cancer N Stroke N Back Injury N High Cholesterol Y Liver Disease N Headaches N Fibromyalgia N Kidney Disease N Thyroid Problems N Anemia N Ulcers N Heart Attack (TN) N Diabetes Y Bleeding Disorder N Tuberculosis N AIDS/HIV N Asthma N Substance Abuse N Hepatitis N Heart Disease N Hypertension Y Osteoporosis N Gynecological HistoryNo gynecological history recorded. Obstetrics History GPAL:G 0 P 0 0 0 0 Past Encounters Encounter ID Performer Location Encounter Start Date Encounter Closed Date Diagnosis/Indication Diagnosis SNOMED-CT Code Diagnosis ICD10 Code Diagnosis Note [id number] Yuniel Diaz MD [facility] [address] [facility] e [address] [place] [id number] 01/05/2022 13:03:21 01/05/2022 13:37:54 Myofascial pain 074417236 M79.10 Piriformis syndrome 1291 62672 G57.03 Spinal sj nosis of lumbar region 79410496 M99.53 M48.061 Pain of bi lateral hip joints 0443683121 4415163 M25.551 M25.552 Bilateral trochanteric bursitis 0317089331 9783006 M70.61 M70.62 [id number] LIZZ CARROLL PA-C [facility] [address] [id number] 02/09/2022 10:57:38 02/09/2022 11:46:18 Myofascial pain 238143915 M79.10 Piriformis syndrome 1291 18462 G57.03 Spinal sj nosis of lumbar region 35195199 M99.53 M48.061 Pain of bi lateral hip joints 0039938339 2723128 M25.551 M25.552 Bilateral trochanteric bursitis 9365828943 7725063 M70.61 M70.62 Meralgia paresthetica 85 141780 G57.11 [id number] Yuniel Diaz MD [facility] [address] [place] [id number] 03/01/2022 08:08:52 03/01/2022 08:47:55 Meralgia paresthetica 67408037 G57.11 Ilioinguin al nerve neuritis 448331577 G57.81 [id number] Yuniel Diaz MD [facility] [address] [place] [id number] 4 03/16/2022 09:37:19 03/16/2022 10:41:07 Myofascial pain 017745112 M79.10 Piriformis syndrome 1291 84612 G57.03 Spinal sj nosis of lumbar region 38818303 M99.53 M48.061 Pain of bi lateral hip joints 2822827337 0146420 M25.551 M25.552 Bilateral trochanteric bursitis 0832879759 8466586 M70.61 M70.62 Meralgia paresthetica 85 255652 G57.11 Radiculiti s due to rupture of lumbar intervertebral disc 9296518030 M51.16 [id number] Yuniel Diaz MD [facility] [address] [id number] 05/18/2022 13:56:21 05/18/2022 15:37:22 Myofascial pain 553547048 M79.10 Piriformis syndrome 1291 84497 G57.03 Radiculiti s due to rupture of lumbar intervertebral disc 3246324356 M51.16 Spinal sj nosis of lumbar region 50767256 M99.53 M48.061 Pain of bi lateral hip joints 9481865132 0314642 M25.551 M25.552 Bilateral trochanteric bursitis 1119493377 4046203 M70.61 M70.62 Meralgia paresthetica 85 700691 G57.11 Lumbar post-laminectomy syndrome 320369511 M96.1 [id number] Yuniel Diaz MD [facility] [address] [place] [id number] 10/10/2022 14:48:07 10/10/2022 15:41:02 Myofascial pain 980140431 M79.10 Piriformis syndrome 1291 40307 G57.03 Radiculiti s due to rupture of lumbar intervertebral disc 2671586399 M51.16 Spinal sj nosis of lumbar region 86425154 M99.53 M48.061 Pain of bi lateral hip joints 8447384915 7195119 M25.551 M25.552 Bilateral trochanteric bursitis 3435217893 1970482 M70.61 M70.62 Meralgia paresthetica 85 597643 G57.11 Lumbar post-laminectomy syndrome 522412769 M96.1 [id number] Yuniel Diaz MD [facility] [address] [place] [id number] 11/14/2022 09:25:21 11/14/2022 11:29:44 Myofascial pain 785022126 M79.10 Piriformis syndrome 1291 36359 G57.03 Radiculiti s due to rupture of lumbar intervertebral disc 1647994013 M51.16 Spinal sj nosis of lumbar region 67680507 M99.53 M48.061 Pain of bi lateral hip joints 4830785956 7296212 M25.551 M25.552 Bilateral trochanteric bursitis 2529135797 8003311 M70.61 M70.62 Meralgia paresthetica 85 684120 G57.11 Lumbar post-laminectomy syndrome 114770864 M96.1 [id number] Yuniel Diaz MD [facility] [address] [place] [id number] 12/22/2022 09:58:16 12/22/2022 10:28:45 Myofascial pain 244531064 M79.10 Piriformis syndrome 1291 34268 G57.03 Radiculiti s due to rupture of lumbar intervertebral disc 6472594621 M51.16 Spinal sj nosis of lumbar region 01804017 M99.53 M48.061 Pain of bi lateral hip joints 2439676348 3094283 M25.551 M25.552 Bilateral trochanteric bursitis 1017170633 1256251 M70.61 M70.62 Meralgia paresthetica 85 087270 G57.11 Lumbar post-laminectomy syndrome 081758686 M96.1 Pain of ri ght hip joint 5744145126 47985 M25.551 Pain in left foot 888761 7931 24052 M79.672 [id number] LIZZ CARROLL PA-C [facility] [address] [place] [address] 01/15/2023 10:38:58 01/15/2023 11:45:30 Myofascial pain 388087515 M79.10 Piriformis syndrome 1291 61038 G57.03 Radiculiti s due to rupture of lumbar intervertebral disc 5636729948 M51.16 Spinal sj nosis of lumbar region 67276334 M99.53 M48.061 Pain of bi lateral hip joints 9836228104 2868239 M25.551 M25.552 Bilateral trochanteric bursitis 0798615405 0772048 M70.61 M70.62 Meralgia paresthetica 85 317827 G57.11 Lumbar post-laminectomy syndrome 595468242 M96.1 Pain of ri ght hip joint 4323210032 55236 M25.551 Pain in left foot 217326 9763 21901 M79.672 [id number] Yuniel Diaz MD [facility] [address] [id number] 02/20/2023 11:10:19 02/20/2023 11:33:52 Myofascial pain 848820964 M79.10 Piriformis syndrome 1291 76044 G57.03 Radiculiti s due to rupture of lumbar intervertebral disc 4036071351 M51.16 Spinal sj nosis of lumbar region 04851677 M99.53 M48.061 Pain of bi lateral hip joints 2020973073 1790507 M25.551 M25.552 Bilateral trochanteric bursitis 8528506020 0381682 M70.61 M70.62 Meralgia paresthetica 85 634540 G57.11 Lumbar post-laminectomy syndrome 983708654 M96.1 Pain of ri ght hip joint 8502401213 05654 M25.551 Pain in left foot 331969 2613 30041 M79.672 [id number] LIZZ CARROLL PA-C [facility] [address] [address] 05/25/2023 08:05:48 05/25/2023 09:10:23 Myofascial pain 039444795 M79.10 Piriformis syndrome 1291 68426 G57.03 Radiculiti s due to rupture of lumbar intervertebral disc 3103912862 M51.16 Spinal sj nosis of lumbar region 37905618 M99.53 M48.061 Pain of bi lateral hip joints 3490623961 1755887 M25.551 M25.552 Bilateral trochanteric bursitis 3180020684 6415693 M70.61 M70.62 Meralgia paresthetica 85 346619 G57.11 Lumbar post-laminectomy syndrome 769498670 M96.1 Pain of ri ght hip joint 1442679343 70286 M25.551 Pain in left foot 809173 1211 07277 M79.672 Spinal ent hesopathy of lumbosacral region 4278927949 29172 M46.07 Health Concerns Section Related Observation LastModified by Organization Detai ls LastModified Time None Recorded Concern Status LastModified by Organization Details LastModified Time None Recorded Advance Directives Directive None Recorded Payers Insurance Date Sequence Insurance Name Policy Number Policy Cannon Covered Member ID Cannon Member ID Guarantor Name 10/20/[address] [facility] (MEDICARE REPLACEMENT/A DVANTAGE - PPO) [id number] Gertrudis Daly [id number] Gertrudis Daly 04/21/2022 1 [employer] (MEDICARE REPLACEMENT/A DVANTAGE - PPO) Essence Daly [id number] Gertrudis Daly 05/30/2021 1 [employer] [id number] Essence Daly [id number] Gertrudis Daly Notes Date Note Type Note [...] Lumbar MRI. DAHLIA STEARNS [address] , [place], [address], [place] [facility] [place] 11/20/2022 14:25:52 12/22/2022 text/html The [...] Lumbar MRI. LIZZ CARROLL PA-C [address], [place], [address], [facility] & [place] 12/25/2022 06:15:50 01/15/2023 text/html The [...] MRI. LIZZ CARROLL PA-C [address], [place], [address], [place] [facility] & [place] 01/16/2023 13:42:15 02/20/2023 text/html The [...] Multiple*Imaging/St udies: Lumbar MRI. [address], [place], [address], [facility] - [place] & [place] 02/21/2023 10:07:50 05/25/2023 text/html The [...] Multiple*Imaging/St udies: Lumbar MRI. LIZZ CARROLL PA-C [address], [place], [address], [place] [facility] [place] 05/28/2023 10:24:49 OBGyn Episode No OBEpisode recorded.
--- OUTSIDE RECORDS SUMMARY | 2024-09-04 07:05 | XMS_ITS | Data Portability ---
Author Organization [facility] JEANN[facility] Address [address] [facility] [facility] [address] [place] [address] Care Team Providers Care Senior Formulation Scientist Name Role Phone ARIEL LIZARRAGA Primary Care Provider [phone] Assessment No assessment recorded. Plan of Treatment Reminders Order Date Submit Date Provider Last Modified By Organization Details Last Modified Time Details Appointments RECHECK 2024 01:30P M SHABANA LAM PA-C Not available Not available Not available Lab urinalysi s panel, auto 2024 025 [facility], [address], [place], [address], 04/30/2024 13:50:54 urinalysi s panel, auto 2022 023 [email or web address] [facility], [address], [place], [address], 01/10/2023 23:56:51 urinalysi s panel, auto 2022 023 [email or web address] [facility], [address], [place], [address], 05/16/2022 10:24:13 culture, urine 2022 023 [facility], [address] [place] [address] [place], [address], 05/16/2022 10:24:13 urinalysi s panel, auto 2021 022 breana [facility], [address], [place], [address], 11/08/2021 14:43:13 Referral None recorded. Procedures None recorded. Surgeries None recorded. Imaging None recorded. Medication Orders cefuroxim e axetil 500 mg tablet 2024 025 FRITZ [facility], [address], [place], [place], [id number], 04/30/2024 13:50:55 bethanech ol chloride 50 mg tablet 2024 025 FRITZ [facility], [address], [place], [place], [id number], 04/30/2024 13:50:55 cefuroxim e axetil 500 mg tablet 2022 023 [email or web address] [facility], [address], [place], [place], [id number], 04/30/2024 13:26:12 Patient TargetsNo targets recorded. Patient Instructions Encounter Date Encounter Id Patient Instructions Last Modified By Organization Details Last Modified Time 11/08/2021 [id number] learning about h ealthy weight breana Not available 11/08/2021 14:43:13 06/26/2024 [id number] 1. Laryngoscopy flex performed in office today. 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 Advised patient that singing can worsen acid reflux 6. F/u prn - [place] [facility] available 06/26/2024 11:49:30 Reason for Referral None Reported. Results Created Date Observation Date Name Description Value Unit Range Abnormal Flag Note LastModifiedBy Organization Detail LastModifiedTime 11/09/19 22 11/08/2021 urina lysis panel , auto Unknown Analyte Clean Catch Not Available [facility] [address], [place], [address], 11/08/2021 14:26:03 11/09/19 22 11/08/2021 urina lysis panel , auto Unknown Analyte Yellow Not Available [facility] [address], [place], [address], 11/08/2021 14:26:03 11/09/19 22 11/08/2021 urina lysis panel , auto Unknown Analyte Cloudy Not Available [facility] [address], [place], [address], 11/08/2021 14:26:03 11/09/19 22 11/08/2021 urina lysis panel , auto Unknown Analyte 1.015 Not Available [facility] [address], [place], [address], 11/08/2021 14:26:03 11/09/19 22 11/08/2021 urina lysis panel , auto Unknown Analyte 1.003- 1.035 Not Available [facility] [address], [place], [address], 11/08/2021 14:26:03 11/09/19 22 11/08/2021 urina lysis panel , auto Unknown Analyte 5.0 Not Available [facility] [address], [place], [address], 11/08/2021 14:26:03 11/09/19 22 11/08/2021 urina lysis panel , auto Unknown Analyte 5.0-8. 0 Not Available [facility] [address], [place], [address], 11/08/2021 14:26:03 11/09/19 22 11/08/2021 urina lysis panel , auto Unknown Analyte Negati ve Not Available [facility] [address], [place], [address], 11/08/2021 14:26:03 11/09/19 22 11/08/2021 urina lysis panel , auto Unknown Analyte Negati ve Not Available [facility] [address], [place], [address], 11/08/2021 14:26:03 11/09/19 22 11/08/2021 urina lysis panel , auto Unknown Analyte Negati ve Not Available [facility] [address], [place], [address], 11/08/2021 14:26:03 11/09/19 22 11/08/2021 urina lysis panel , auto Unknown Analyte Negati ve Not Available [facility] [address], [place], [address], 11/08/2021 14:26:03 11/09/19 22 11/08/2021 urina lysis panel , auto Unknown Analyte Negati ve Not Available [facility] [address], [place], [address], 11/08/2021 14:26:03 11/09/19 22 11/08/2021 urina lysis panel , auto Unknown Analyte Negati ve Not Available [facility] [address], [place], [address], 11/08/2021 14:26:03 11/09/19 22 11/08/2021 urina lysis panel , auto Unknown Analyte Normal Not Available [facility] [address], [place], [address], 11/08/2021 14:26:03 11/09/19 22 11/08/2021 urina lysis panel , auto Unknown Analyte Normal Not Available [facility] [address], [place], [address], 11/08/2021 14:26:03 11/09/19 22 11/08/2021 urina lysis panel , auto Unknown Analyte Negati ve Not Available [facility] [address], [place], [address], 11/08/2021 14:26:03 11/09/19 22 11/08/2021 urina lysis panel , auto Unknown Analyte Negati ve Not Available [facility] [address], [place], [address], 11/08/2021 14:26:03 11/09/19 22 11/08/2021 urina lysis panel , auto Unknown Analyte Normal Not Available [facility] [address], [place], [address], 11/08/2021 14:26:03 11/09/19 22 11/08/2021 urina lysis panel , auto Unknown Analyte Normal 1 mg/dl Not Available [facility] [address], [place], [address], 11/08/2021 14:26:03 11/09/19 22 11/08/2021 urina lysis panel , auto Unknown Analyte Negati ve Not Available [facility] [address], [place], [address], 11/08/2021 14:26:03 11/09/19 22 11/08/2021 urina lysis panel , auto Unknown Analyte Negati ve Not Available [facility] [address], [place], [address], 11/08/2021 14:26:03 11/09/19 22 11/08/2021 urina lysis panel , auto Unknown Analyte Negati ve Not Available [facility] [address], [place], [address], 11/08/2021 14:26:03 11/09/19 22 11/08/2021 urina lysis panel , auto Unknown Analyte Negati ve Not Available [facility] [address], [place], [address], 11/08/2021 14:26:03 05/12/19 23 05/12/2022 URINE CULTU RE results Sourc e: CCUR Colle cted: 05/12 12:59 Site: Recei stephanie : 05/12 14:23 URINE CULTU RE FINAL 05/15 11:05 05/13 ISOLA TE #1 COLON Y COUNT : > 100,0 00 CFU/M L Proba ble Gram Negat marta Bacil faisal. ID and sensi tivit y in progr ess. 05/15 See Elizabeth te Resul t(s) Below ISOLA DANIELE AND SENSI TIVIT Y RESUL TS Elizabeth te 01 Esche rocio a coli __ Elizabeth te ORG# 01 ANTIB IOTIC S LUIS [...] th/Tinoco lfa <=2/3 8 S Not Available [facility] [address] [facility] [facility], [place], [address], 05/15/2022 11:05:53 05/12/19 23 05/12/2022 urina lysis panel , auto Unknown Analyte Clean Catch Not Available [facility] [address] [facility] [address], [place], [address], 05/12/2022 12:40:54 05/12/19 23 05/12/2022 urina lysis panel , auto Unknown Analyte Yellow Not Available [facility] [address], [place], [address], 05/12/2022 12:40:54 05/12/19 23 05/12/2022 urina lysis panel , auto Unknown Analyte Clear Not Available [facility] [address], [place], [address], 05/12/2022 12:40:54 05/12/19 23 05/12/2022 urina lysis panel , auto Unknown Analyte 1.010 Not Available [facility] [address], [place], [address], 05/12/2022 12:40:54 05/12/19 23 05/12/2022 urina lysis panel , auto Unknown Analyte 1.003- 1.035 Not Available [facility] [address], [place], [address], 05/12/2022 12:40:54 05/12/19 23 05/12/2022 urina lysis panel , auto Unknown Analyte 7.0 Not Available [facility] [address], [place], [address], 05/12/2022 12:40:54 05/12/19 23 05/12/2022 urina lysis panel , auto Unknown Analyte 5.0-8. 0 Not Available [facility] [address], [place], [address], 05/12/2022 12:40:54 05/12/19 23 05/12/2022 urina lysis panel , auto Unknown Analyte Negati ve Not Available [facility] [address], [place], [address], 05/12/2022 12:40:54 05/12/19 23 05/12/2022 urina lysis panel , auto Unknown Analyte Negati ve Not Available [facility] [address], [place], [address], 05/12/2022 12:40:54 05/12/19 23 05/12/2022 urina lysis panel , auto Unknown Analyte Negati ve Not Available [facility] [address], [place], [address], 05/12/2022 12:40:54 05/12/19 23 05/12/2022 urina lysis panel , auto Unknown Analyte Negati ve Not Available [facility] [address], [place], [address], 05/12/2022 12:40:54 05/12/19 23 05/12/2022 urina lysis panel , auto Unknown Analyte Negati ve Not Available [facility] [address], [place], [address], 05/12/2022 12:40:54 05/12/19 23 05/12/2022 urina lysis panel , auto Unknown Analyte Negati ve Not Available [facility] [address], [place], [address], 05/12/2022 12:40:54 05/12/19 23 05/12/2022 urina lysis panel , auto Unknown Analyte Normal Not Available [facility] [address], [place], [address], 05/12/2022 12:40:54 05/12/19 23 05/12/2022 urina lysis panel , auto Unknown Analyte Normal Not Available [facility] [address], [place], [address], 05/12/2022 12:40:54 05/12/19 23 05/12/2022 urina lysis panel , auto Unknown Analyte Negati ve Not Available [facility] [address], [place], [address], 05/12/2022 12:40:54 05/12/19 23 05/12/2022 urina lysis panel , auto Unknown Analyte Negati ve Not Available [facility] [address], [place], [address], 05/12/2022 12:40:54 05/12/19 23 05/12/2022 urina lysis panel , auto Unknown Analyte Normal Not Available [facility] [address], [place], [address], 05/12/2022 12:40:54 05/12/19 23 05/12/2022 urina lysis panel , auto Unknown Analyte Normal 1 mg/dl Not Available [facility] [address], [place], [address], 05/12/2022 12:40:54 05/12/19 23 05/12/2022 urina lysis panel , auto Unknown Analyte Negati ve Not Available [facility] [address], [place], [address], 05/12/2022 12:40:54 05/12/19 23 05/12/2022 urina lysis panel , auto Unknown Analyte Negati ve Not Available [facility] [address], [place], [address], 05/12/2022 12:40:54 05/12/1905/12/2022 urina lysis panel , auto Unknown Analyte Negati ve Not Available [facility] [address], [place], [address], 05/12/2022 12:40:54 05/12/1905/12/2022 urina lysis panel , auto Unknown Analyte Negati ve Not Available [facility] [address], [place], [address], 05/12/2022 12:40:54 01/10/2001/09/2023 urina lysis panel , auto Unknown Analyte Clean Catch Not Available [facility] [address], [place], [address], 01/09/2023 16:33:55 01/10/2001/09/2023 urina lysis panel , auto Unknown Analyte Yellow Not Available [facility] [address], [place], [address], 01/09/2023 16:33:55 01/10/2001/09/2023 urina lysis panel , auto Unknown Analyte Clear Not Available [facility] [address], [place], [address], 01/09/2023 16:33:55 01/10/2001/09/2023 urina lysis panel , auto Unknown Analyte 1.010 Not Available [facility] [address], [place], [address], 01/09/2023 16:33:55 01/10/2001/09/2023 urina lysis panel , auto Unknown Analyte 1.003- 1.035 Not Available [facility] [address], [place], [address], 01/09/2023 16:33:55 01/10/2001/09/2023 urina lysis panel , auto Unknown Analyte 6.0 Not Available [facility] [address], [place], [address], 01/09/2023 16:33:55 01/10/2001/09/2023 urina lysis panel , auto Unknown Analyte 5.0-8. 0 Not Available [facility] [address], [place], [address], 01/09/2023 16:33:55 01/10/2001/09/2023 urina lysis panel , auto Unknown Analyte Negati ve Not Available [facility] [address], [place], [address], 01/09/2023 16:33:55 01/10/2001/09/2023 urina lysis panel , auto Unknown Analyte Negati ve Not Available [facility] [address], [place], [address], 01/09/2023 16:33:55 01/10/2001/09/2023 urina lysis panel , auto Unknown Analyte Negati ve Not Available [facility] [address], [place], [address], 01/09/2023 16:33:55 01/10/2001/09/2023 urina lysis panel , auto Unknown Analyte Negati ve Not Available [facility] [address], [place], [address], 01/09/2023 16:33:55 01/10/2001/09/2023 urina lysis panel , auto Unknown Analyte Negati ve Not Available [facility] [address], [place], [address], 01/09/2023 16:33:55 01/10/2001/09/2023 urina lysis panel , auto Unknown Analyte Negati ve Not Available [facility] [address], [place], [address], 01/09/2023 16:33:55 01/10/2001/09/2023 urina lysis panel , auto Unknown Analyte Normal Not Available [facility] [address], [place], [address], 01/09/2023 16:33:55 01/10/2001/09/2023 urina lysis panel , auto Unknown Analyte Normal Not Available [facility] [address], [place], [address], 01/09/2023 16:33:55 01/10/2001/09/2023 urina lysis panel , auto Unknown Analyte 15 mg/dl (Sm) Not Available [facility] [address], [place], [address], 01/09/2023 16:33:55 01/10/2001/09/2023 urina lysis panel , auto Unknown Analyte Negati ve Not Available [facility] [address], [place], [address], 01/09/2023 16:33:55 01/10/2001/09/2023 urina lysis panel , auto Unknown Analyte 1 mg/dl Not Available [facility] [address], [place], [address], 01/09/2023 16:33:55 01/10/20 23 01/09/2023 urina lysis panel , auto Unknown Analyte Normal 1 mg/dl Not Available [facility] [address], [place], [address], 01/09/2023 16:33:55 01/10/2001/09/2023 urina lysis panel , auto Unknown Analyte Negati ve Not Available [facility] [address], [place], [address], 01/09/2023 16:33:55 01/10/2001/09/2023 urina lysis panel , auto Unknown Analyte Negati ve Not Available [facility] [address], [place], [address], 01/09/2023 16:33:55 01/10/20 23 01/09/2023 urina lysis panel , auto Unknown Analyte Negati ve Not Available [facility] [address], [place], [address], 01/09/2023 16:33:55 01/10/20 23 01/09/2023 urina lysis panel , auto Unknown Analyte Negati ve Not Available [facility] [address], [place], [address], 01/09/2023 16:33:55 04/30/19 25 04/30/2024 urina lysis panel , auto Unknown Analyte Clean Catch Not Available [facility] [address], [place], [address], 04/30/2024 13:16:28 04/30/19 25 04/30/2024 urina lysis panel , auto Unknown Analyte Yellow Not Available [facility] [address], [place], [address], 04/30/2024 13:16:28 04/30/19 25 04/30/2024 urina lysis panel , auto Unknown Analyte Clear Not Available [facility] [address], [place], [address], 04/30/2024 13:16:28 04/30/19 25 04/30/2024 urina lysis panel , auto Unknown Analyte 1.005 Not Available [facility] [address], [place], [address], 04/30/2024 13:16:28 04/30/19 25 04/30/2024 urina lysis panel , auto Unknown Analyte 1.003- 1.035 Not Available [facility] [address], [place], [address], 04/30/2024 13:16:28 04/30/19 25 04/30/2024 urina lysis panel , auto Unknown Analyte 8.0 Not Available [facility] [address], [place], [address], 04/30/2024 13:16:28 04/30/19 25 04/30/2024 urina lysis panel , auto Unknown Analyte 5.0-8. 0 Not Available [facility] [address], [place], [address], 04/30/2024 13:16:28 04/30/19 25 04/30/2024 urina lysis panel , auto Unknown Analyte Negati ve Not Available [facility] [address], [place], [address], 04/30/2024 13:16:28 04/30/19 25 04/30/2024 urina lysis panel , auto Unknown Analyte Negati ve Not Available [facility] [address], [place], [address], 04/30/2024 13:16:28 04/30/19 25 04/30/2024 urina lysis panel , auto Unknown Analyte Negati ve Not Available [facility] [address], [place], [address], 04/30/2024 13:16:28 04/30/19 25 04/30/2024 urina lysis panel , auto Unknown Analyte Negati ve Not Available [facility] [address], [place], [address], 04/30/2024 13:16:28 04/30/19 25 04/30/2024 urina lysis panel , auto Unknown Analyte Negati ve Not Available [facility] [facility] [address], [place], [address], 04/30/2024 13:16:28 04/30/19 25 04/30/2024 urina lysis panel , auto Unknown Analyte Negati ve Not Available [facility] [address], [place], [address], 04/30/2024 13:16:28 04/30/19 25 04/30/2024 urina lysis panel , auto Unknown Analyte Normal Not Available [facility] [address], [place], [address], 04/30/2024 13:16:28 04/30/19 25 04/30/2024 urina lysis panel , auto Unknown Analyte Normal Not Available [facility] [address], [place], [address], 04/30/2024 13:16:28 04/30/19 25 04/30/2024 urina lysis panel , auto Unknown Analyte Negati ve Not Available [facility] [address], [place], [address], 04/30/2024 13:16:28 04/30/19 25 04/30/2024 urina lysis panel , auto Unknown Analyte Negati ve Not Available [facility] [address], [place], [address], 04/30/2024 13:16:28 04/30/19 25 04/30/2024 urina lysis panel , auto Unknown Analyte Normal Not Available [facility] [address], [place], [address], 04/30/2024 13:16:28 04/30/19 25 04/30/2024 urina lysis panel , auto Unknown Analyte Normal 1 mg/dl Not Available [facility] [address], [place], [address], 04/30/2024 13:16:28 04/30/19 25 04/30/2024 urina lysis panel , auto Unknown Analyte Negati ve Not Available [facility] [address], [place], [address], 04/30/2024 13:16:28 04/30/19 25 04/30/2024 urina lysis panel , auto Unknown Analyte Negati ve Not Available [facility] [address], [place], [address], 04/30/2024 13:16:28 04/30/19 25 04/30/2024 urina lysis panel , auto Unknown Analyte Negati ve Not Available [facility] [address], [place], [address], 04/30/2024 13:16:28 04/30/19 25 04/30/2024 urina lysis panel , auto Unknown Analyte Negati ve Not Available [facility] [address], [place], [address], 04/30/2024 13:16:28 Result Notes None recorded. Problems No Known Problems Procedures Surgical History Date Name Laterality Status Provider Name and Address Organization Details Recorded Time 06/27/19 Laryngoscopy Flex completed Shabana Schoff [facility] 06/26/2024 11:43:41 06/16/19 Post Void Residual; Ultrasound completed Deseriee Havana [facility] 06/16/2019 13:32:32 Back Surgery completed Mare Osborn [facility] 05/23/2019 10:25:14 Imaging Results None recorded. Procedure Notes None recorded. Medical Equipment None Reported. Allergies Allergen ID Allergen Name Allergen Category Reaction Reaction Severity Criticality Documentation Date Start Date Code Code System Note Provider Name and Address Organization Details Recorded Time 031845 metformin medicatio n Not available Not available Not available 05/23/2019 6809 RxNorm Mare mandujano [facility] 0 10:24:00 784880 latex environme nt,medica tion Not available Not available Not available 06/26/2024 51347 91 RxNorm Mona Praria [facility] 5 11:22:49 240087 Product containin g penicilli n (product) medicatio n Not available Not available Not available 06/26/2024 12883 8001 SNOMED Mona Praria [facility] 5 11:23:05 562094 Product containin g beta adrenergi c receptor antagonis t (product) medicatio n Not available Not available Not available 06/26/2024 25597 009 SNOMED Mona Praria [facility] 5 11:23:21 709289 spironola ctone medicatio n Not available Not available Not available 06/26/2024 9997 RxNorm Mona Hendricksonpaul [facility] 11:23:46 Medications Name Sig Start Date [...] Updated DateTime 04/30/2024 160.02 cm 32.4 kg/m2 87556.4 g Dorita Jung [facility] 04/30/2024 13:25:30 Date Recorded Body height Body mass index (BMI) Body weight Provider Name and Address Organization Details Last Updated DateTime 05/12/2022 160.02 cm 33.1 kg/m2 24930.77 g Dorita Jung [facility] 05/12/2022 12:40:34 Date Recorded Body height Body mass index (BMI) Body weight Body temperature Heart rate Systolic blood pressure Diastolic blood pressure Provider Name and Address Organization Details Last Updated DateTime 160.02 cm 34 kg/m2 18366.4 4 g 96.9 [degF] 124 /min 147 mm[Hg] 68 mm[Hg] Mona Мария [facility] 11:22:17 Date Recorded Body height Body mass index (BMI) Body weight Provider Name and Address Organization Details Last Updated DateTime 11/08/2021 157.48 cm 33.7 kg/m2 64532 g JoseRodriguezdedra Anne [facility] 11/08/2021 14:24:33 Date Recorded Body height Body mass index (BMI) Body weight Provider Name and Address Organization Details Last Updated DateTime 01/09/2023 160.02 cm 33.1 kg/m2 05281.77 g Ese Navarro [facility] 01/09/2023 16:03:46 Social History Question Answer Notes LastModified by Organizat ion Details LastModified Time Tobacco Smoking Status Never Smoker Mare Osborn [facility] 05/23/2019 10:24:18 How Much Tobacco Do You Chew? None Information not available 05/23/2019 Marital Status Informat ion not available 05/23/2019 What Is Your Relationship Status? [email or web address] Information not available 11/01/2020 Has Tobacco Cessation Counseling Been Provided? No [email or web address] Information not available 11/01/2020 Have You Recently Traveled Abroad? No [email or web address] Information not available 11/01/2020 Sex: Unknown Functional Status Question Answer Note LastModified by Organizat ion Details LastModified Time Do you use any illicit or recreational drugs? No Information not available 11/01/2020 Do you or have you ever used any other forms of tobacco or nicotine? No [email or web address] Information not available 11/01/2020 What is your [...] SNOMED-CT Code Diagnosis ICD10 Code Diagnosis Note [id number] MELIZA DOWNS MD [facility] [address] [place] [address] 05/13/2019 12:58:50 05/15/2019 11:14:11 [id number] LESLIE CAMPUZANO MD [facility] [address] [place] [address] 05/23/2019 09:54:44 05/23/2019 10:49:30 Retention of urine 240600730 R33.9 follow-up 2-3 weeks Neurogenic urinary bladder 728994317 N31.9 plan as above [id number] LESLIE CAMPUZANO MD [facility] [address] [place] [address] 06/16/2019 12:28:58 06/16/2019 13:45:00 Retention of urine 296159712 R33.9 follow-up 2-3 weeks Neurogenic urinary bladder 392946347 N31.9 plan as above, we discussed that it may be several weeks for hopeful return of normal bladder function. She presented self catheteriz ation and continue with Urecholine follow-up 2 months [id number] LESLIE CAMPUZANO MD [facility] [address] [place] [address] 08/18/2019 13:04:34 08/18/2019 13:59:16 Neurogenic dysfunction of urinary bladder 903807382 N31.9 plan as above follow-up 2 months [id number] LESLIE CAMPUZANO MD [facility] [address] [place] [address] 10/20/2019 14:28:53 10/20/2019 16:03:52 Neurogenic dysfunction of urinary bladder 168648120 N31.9 plan as above follow-up 3 months [id number] LESLIE CAMPUZANO MD [facility] [address] [place] [address] 04/19/2020 10:57:00 04/19/2020 11:34:35 Urinary tract infectious disease 98168341 N39.0 Neurogenic dysfunction of urinary bladder 370068868 N31.9 plan as above follow-up 6 months . Continue bethanecho l and intermitte nt self-chantell terization 3 times per day [id number] LESLIE CAMPUZANO MD [facility] [address] [place], [place] [address] 11/01/2020 14:25:12 11/01/2020 15:16:39 Urinary tract infectious disease 65596629 N39.0 Neurogenic dysfunction of urinary bladder 709815450 N31.9 plan as above follow-up 6 months . Continue bethanecho l and intermitte nt self-chantell terization 3 times per day [id number] LESLIE CAMPUZANO MD [facility] [address] [place] [address] 01/31/2021 13:16:09 01/31/2021 13:49:54 Urinary tract infectious disease 58180820 N39.0 Neurogenic dysfunction of urinary bladder 676699057 N31.9 plan as above follow-up 6 months . Continue bethanecho l and intermitte nt self-chantell terization 3 times per day Retention of urine 08855 4002 R33.9 3 months [id number] LESLIE CAMPUZANO MD [facility] [address] [place] [address] 05/11/2021 15:07:24 05/11/2021 15:58:01 Neurogenic dysfunction of urinary bladder 075305645 N31.9 plan as above follow-up 6 months . Continue bethanecho l and intermitte nt self-chantell terization 3 times per day [id number] JUSTIN SHERMAN MD [facility] [address] [place] [address] 11/08/2021 14:03:07 11/08/2021 14:35:55 Retention of urine 498542293 R33.9 [id number] LESLIE CAMPUZANO MD [facility] [address] [address] 05/12/2022 10:33:39 05/12/2022 15:33:04 Urinary tract infectious disease 98145914 N39.0 Chronic re tention of urine 901652883 R33.8 Continue with intermitte nt self-chantell terization and then a call [id number] LESLIE CAMPUZANO MD [facility] [address] [place] [address] 01/09/2023 14:48:36 01/09/2023 16:32:05 Chronic retention of urine 872173034 R33.8 Continue with intermitte nt self-chantell terization and follow-up 1 year Chronic in fective cystitis 757674253 N30.20 [id number] LESLIE CAMPUZANO MD [facility] [address] [place] [address] 04/30/2024 13:10:08 04/30/2024 14:10:17 Chronic retention of urine 850063955 R33.8 Continue with intermitte nt self-chantell terization and follow-up 1 year Chronic in fective cystitis 308024751 N30.20 [id number] IRVIN FRANCOIS MD [place] [facility] [address] [place] [address] 06/26/2024 11:00:08 06/26/2024 11:49:59 Chronic cough 24728458 R05.3 Pain in throat 410249790 R07.0 Laryngopha ryngeal reflux 709262371 K21.9 06/26/24 - flex scope = erythema and evidence of acid kimble on the vocal cords 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 Health Concerns Section Related Observation LastModified by Organization Detai ls LastModified Time None Recorded Concern Status LastModified by Organization Details LastModified Time None Recorded Advance Directives Directive None Recorded Payers Insurance Date Sequence Insurance Name Policy Number Policy Cannon Covered Member ID Cannon Member ID Guarantor Name 06/26/2024 1 [facility] [id number] Girly Stuff [id number] Gertrudis [employer] 06/26/2024 1 [employer] (MEDICARE REPLACEMENT/ ADVANTAGE - PPO) [id number] Gertrudis L Gonzalez [id number] Gertrudis Gonzalez 07/01/2024 1 [employer] (MEDICARE REPLACEMENT/ ADVANTAGE - PPO) [id number] Girly Stuff [id number] Gertrudis Gonzalez Notes Date Note Type Note [...] going to consider it JUSTIN SHERMAN MD [facility] [place], [address], [facility] 11/08/2021 14:43:39 05/12/2022 text/html Patient is here for scheduled 6Month follow-up. She continues to take bethanechol twice daily and perform intermittent catheterization 3 times per day. She had recent symptomatic urinary infection several weeks ago. Her urine today is unremarkable. She has some mild irritative symptoms. We will culture her urine. [place], [address], [facility] 05/16/2022 11:00:42 01/09/2023 text/html Patient is [...] her to yearly follow-up LESLIE CAMPUZANO MD [facility] [place], [address], [facility] 01/10/2023 23:57:23 04/30/2024 text/html Patient is [...] medical regimen for now. LESLIE CAMPUZANO MD [facility] [place], [address], [facility] 04/30/2024 13:51:22 06/26/2024 text/html Gertrudis comes in today for an evaluation of chronic cough and severe throat pain when singing or raising her voice at the referral of VASILE Lizarraga. Her cough has been ongoing for a while, but the throat pain started approximately a month ago. 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 She denies the use of tobacco or alcohol. She does ingest caffeine daily - around 3 sodas a day. She also experiences constant mucus production in her eyes, nose, and throat. Of note, she takes Zyrtec daily. She also takes omeprazole every morning. She has a history of gastroparesis. IRVIN FRANCOIS MD [facility] [place], [address], [facility] 06/26/2024 13:09:05 OBGyn Episode No OBEpisode recorded.
== END ==
LOC: SL 07:02
PROVIDERS: PCP Internal Medicine; Visit Provider Internal Medicine
DX: G47.33 Obstructive sleep apnea (adult) (pediatric); G47.36 Sleep related hypoventilation in conditions classified elsewhere
CPT/HCPCS: G0399

== ENCOUNTER 2024-11-07 09:48 | Outpatient (CLI) | payer MEDICARE, SELFPAY ==
[2024-11-07 11:44] LABS: Alanine Aminotransferase 47 U/L (12-78); Albumin Level 4.5 g/dl (3.5-5.0); Albumin/Globulin Ratio 1.4 (1.1-1.8); Alkaline Phosphatase 211 U/L (38-126); Anion Gap 11.2 mEq/L (5-15); Aspartate Amino Transferase 46 U/L (14-36); Bilirubin,Total 0.4 mg/dl (0.2-1.3); Blood Urea Nitrogen 18 mg/dl (7-17); Calcium 9.9 mg/dl (8.4-10.2); Carbon Dioxide 30 mmol/L (22.0-30.0); Chloride 104 mmol/L (98-107); Cholesterol 268 mg/dl (140-200); Creatinine,Serum 0.50 mg/dl (0.52-1.04); Estimated Glomerular Filt Rate 123 ml/min (>60); GFR (African American) 149 ML/MIN (>60); Globulin 3.2 g/dL (1.3-3.2); Glucose 148 mg/dl (74-100); HDL Cholesterol 50 mg/dl (40-60); Potassium 4.2 mmoL/L (3.5-5.1); Sodium 141 mmol/L (136-145); Total Protein,Serum 7.7 g/dl (6.3-8.2); Triglycerides 219 mg/dl (30-150)
[2024-11-07 11:53] LABS: Hemoglobin A1C 7.4 % (4.0-6.0)
[2024-11-07 12:17] LABS: Thyroid Stimulating Hormone 2.62 uIU/mL (0.465-4.68)
[2024-11-07 12:39] LABS: Hepatitis C Ab Qual. W/ RFX NEGATIVE (Negative)
--- OUTSIDE RECORDS SUMMARY | 2024-11-10 09:56 | XMS_ITS | Encounter Summary ---
Author Organization [employer] ([place], [place], [place], [place]) Address [address] [place] [address] Care Team Providers Care Social Services Specialist Name Role Phone Unavailable Primary Care Provider Unavailabl e Encounter Details Date Type Department Care Team (Late st Contact Info) Description 04/27/2019 Transcribed Document [facility] [address] [facility] [address] [place] [address] Meliza Downs Jr., MD [facility] [place] [id number] Social History Tobacco Use Types Packs/Day Years [...]
--- OUTSIDE RECORDS SUMMARY | 2024-11-10 09:56 | XMS_ITS | Encounter Summary ---
Author Organization [employer] ([place], [place], [place]) Address [address] [place] [address] Care Team Providers Care Shop Director Name Role Phone Unavailable Primary Care Provider Unavailabl e Encounter Details Date Type Department Care Team (Late st Contact Info) Description 04/26/2019 Transcribed Document [facility] Radiology [address] [place] [address] ProviderLuciano MD Social History Tobacco Use Types Packs/Day Years Used Date Smoking Tobacco: Never Assessed Comments Unknown Sex and Gender Information Value Date Recorded Sex Assigned at Not on file Legal Sex Female 6:01 PM CDT Gender Identity Not on file Sexual Orientation Not on file documented as of this encounter Miscellaneous Notes * Cerner Conversion Note - [facility] Aiyana ProviderMD - 04/26/2019 8:56 AM EST UM Authorization Entered On: 04/26/2019 7:57 EST Performed On: 04/26/2019 7:56 EST by BULMARO DUONG RN-Utilization Review Primary Insurance Authorization Authorization and Policy Numbers : Insurance 1 Health Plan: [employer] MEDICARE REPL Policy Number: [id number] Authorization Number: [id number] Insurance Primary Name : Mariela [id number] Authorization Status-Primary : Admit approved Authorization Number-Primary : [id number] Authorized Service Begin Date-Primary : 04/25/2019 EST Historical Authorization Comments-Primary : Comment 1: per [facility] inpt approved 1 day auth# [id number] (FRANCY MILIAN, Manager Cardiovascular 04/24/2019 13:26) BULMARO DUONG RN-Utilization Review - 04/26/2019 7:56 EST documented in this encounter Plan of Treatment Not on file documented as of this encounter Visit Diagnoses Not on filedocumented in this encounter
--- OUTSIDE RECORDS SUMMARY | 2024-11-10 09:56 | XMS_ITS | Encounter Summary ---
Author Organization [employer] ([place], [place], [place], [place]) Address [address] [place] [address] Care Team Providers Care Clinic Md Associate Name Role Phone Unavailable Primary Care Provider Unavailabl e Encounter Details Date Type Department Care Team (Late st Contact Info) Description 05/02/2019 Transcribed Document [facility] Radiology [address] [place] [address] ProviderLuciano MD Social History Tobacco Use Types Packs/Day Years Used Date Smoking Tobacco: Never Assessed Comments Unknown Sex and Gender Information Value Date Recorded Sex Assigned at Not on file Legal Sex Female 6:01 PM CDT Gender Identity Not on file Sexual Orientation Not on file documented as of this encounter Miscellaneous Notes * Cerner Conversion Note - [facility] Aiyana ProviderMD - 05/02/2019 8:10 PM EST [...] Ericka Wharton RN - 05/02/2019 19:10 EST documented in this encounter Plan of Treatment Not on file documented as of this encounter Visit Diagnoses Not on filedocumented in this encounter
--- OUTSIDE RECORDS SUMMARY | 2024-11-10 09:56 | XMS_ITS | Encounter Summary ---
[facility] Organization [facility] Address [address] [place] [address] Care Team Providers Care Airborne Electronics Analyst Name Role Phone Danelle Lennon APRN Primary Care Provider [phone] Encounter Details Date Type Department Care Team (Late st Contact Info) Description 06/18/2024 Results Follow-Up [facility] ENDOCRINOLOGY [address] [address] Bridget Valdez PA-C [address] [place] [address] Social History Tobacco Use Types Packs/Day Years Used Date Smoking Tobacco: Never Passive Smoke Exposure: Never Smokeless Tobacco: Never Alcohol Use Standard Drinks/Week Comments No 0 (1 standard drink = 0.6 oz pur e alcohol) PHQ-2 Answer Date Recorded Retired PHQ-9: Brief Depression Severity Measure Score 4 02/27/2023 PHQ-2 Answer Date Recorded Retired PHQ-9: Brief Depression Severity Measure Score 4 02/27/2023 Comments No Sex and Gender Information Value Date Recorded Sex Assigned at Not on file Legal Sex Female 10:25 AM EDT Gender Identity Not on file Sexual Orientation Not on file documented as of this encounter Miscellaneous Notes * Telephone Encounter - Bridget Valdez PA-C - 06/18/2024 11:17 AM EDT Please call patient and let her know urine protein was normal. documented in this encounter Plan of Treatment Not on file documented as of this encounter Visit Diagnoses Not on filedocumented in this encounter Additional Health Concerns Assessment Noted Time PHQ-2 Depression Total Score: 4 02/28/20 23 11:21 AM EST documented as of this encounter Care Teams Airborne Electronics Analyst Relationship Specialty Start Date End Date Danelle Lennon APRN [address] [place] [address] PCP - General Internal Medicine 06/18/24 documented as of this encounter
--- OUTSIDE RECORDS SUMMARY | 2024-11-10 09:56 | XMS_ITS | Encounter Summary ---
Author Organization [employer] ([place], [place], [place], [place]) Address [address] [place] [address] Care Team Providers Care Certified Ethical Hacker Name Role Phone Unavailable Primary Care Provider Unavailabl e Encounter Details Date Type Department Care Team (Late st Contact Info) Description 04/28/2019 Transcribed Document [facility] Radiology [address] [place] [address] Provider, Luciano Bronson MD Social [...] [facility] Aiyana ProviderMD - 04/28/2019 4:19 PM EST UM Authorization Entered On: 04/28/2019 15:20 EST Performed On: 04/28/2019 15:19 EST by Gali Newman Rn-Utilization Review Primary Insurance Authorization Authorization and Policy Numbers : Insurance 1 Health Plan: [employer] MEDICARE REPL Policy Number: [id number] Authorization Number: [id number] Insurance Primary Name : Mariela [id number] Authorization Status-Primary : Awaiting callback Authorization Number-Primary : [id number] Authorized Service Begin Date-Primary : 04/25/2019 EST Authorization Comments-Primary : clinical faxed per [facility] for 04/27 and 04/28 Historical Authorization Comments-Primary : Comment 1: call back from [employer] with kadeemdony requesting clinical be faxed to [phone]. clinical faxed per [facility] (Trent, Gali L, Rn-Utilization Review 04/28/2019 15:17) Comment 2: lvm with brigette rn with [employer] for c/s . acb (Gali Newman, Rn-Utilization Review 04/28/2019 13:51) Comment 3: clinicals faxed via [facility] for cont stay (only 1 day approved) (BULMARO DUONG, RN-Utilization Review 04/26/2019 13:11) Comment 4: per [facility] inpt approved 1 day auth# [id number] (FRANCY MILIAN, Local Combination Truck Driver 04/24/2019 13:26) Gali Newman Rn-Utilization Review - 04/28/2019 15:19 EST documented in this encounter Plan of Treatment Not on file documented as of this encounter Visit Diagnoses Not on filedocumented in this encounter
--- OUTSIDE RECORDS SUMMARY | 2024-11-10 09:56 | XMS_ITS | Encounter Summary ---
Author Organization [employer] ([place], [place], [place], [place]) Address [address] [place] [address] Care Team Providers Care Aircraft Design Engineer Name Role Phone Unavailable Primary Care Provider Unavailabl e Encounter Details Date Type Department Care Team (Late st Contact Info) Description 04/27/2019 Transcribed Document [facility] [address] [place] [address] ProviderLuciano MD Social History Tobacco Use Types Packs/Day Years Used Date Smoking Tobacco: Never Assessed Comments Unknown Sex and Gender Information Value Date Recorded Sex Assigned at Not on file Legal Sex Female 6:01 PM CDT Gender Identity Not on file Sexual Orientation Not on file documented as of this encounter Miscellaneous Notes * Cerner Conversion Note - [facility] Aiyana ProviderMD - 04/27/2019 6:51 AM EST Height and Weight, Routine Entered On: 04/27/2019 5:52 EST Performed On: 04/27/2019 5:51 EST by Prisca Stephenson Patient Product Finisher Height and Weight, Routine Routine Weight Source : Bed scale Routine Weight Entry Format : Metric Routine Weight, Kilograms : 86.5 kg(Converted to: 190 lb 11 oz) Routine Weight Calculation : 86.5 kg Height Source : Measured Height Entry Format : [place] Height, Feet : 5 ft Height, Inches : 2 Inch Clinical Height : 157.48 cm Body Surface Area (BSA), Routine : 1.87 m2 Body Mass Index (BMI), Routine : 34.88 kg/m2 Prisca Stephenson Patient Product Finisher - 04/27/2019 5:51 EST documented in this encounter Plan of Treatment Not on file documented as of this encounter Visit Diagnoses Not on filedocumented in this encounter
--- OUTSIDE RECORDS SUMMARY | 2024-11-10 09:56 | XMS_ITS | Encounter Summary ---
Author Organization [employer] ([place], [place], [place], [place]) Address [address] [place] [address] Care Team Providers Care Mud Cleaner Operator Name Role Phone Unavailable Primary Care Provider Unavailabl e Encounter Details Date Type Department Care Team (Late st Contact Info) Description 05/01/2019 Transcribed Document [facility] Radiology [address] [place] [address] Karina Murphy MD [address] [place] [id number] Social History Tobacco Use Types Packs/Day [...] 5 dayas before bladder training. Plan is [facility] placement today. No f'/c/s. No n/v/d. (+) [...] Last Charted Minimum Maximum Temp 99.5 (MAY 01:32) 98 (APR 30 21:00) 99.5 (MAY 01:32) Mon HR 76 (MAY 01:) 76 (MAY 01:32) 101 (APR 30:00) Resp Rate 16 (MAY 01:32) 15 (APR 30 18:22) 17 (APR 30 13:37) SBP 113 (MAY 01:32) 113 (MAY 01:32) 130 (APR 30:) DBP 64 (MAY 01:32) 63 (APR 30 18:22) 70 (APR 30 13:37) MAP 76 (MAY 01:) 76 (MAY 01:32) 93 (APR 30:) SpO2 95 (APR 30:) 94 (APR 30 18:22) 95 (APR 30:) PE: GEN: Alert, awake, NAD; resting in [...] Results (Current Encounter/Past 24 Hours) Bun/Creatinine 36.0 AK 05/01/2019 05:26 Creatinine Level 0.50 mg/dL LOW 05/01/2019 05:26 eGFR NonAfrican >60 mL/min/1.73m2 05/01/2019 05:26 eGFR >60 mL/min/1.73m2 05/01/2019 05:26 Sodium Level 137 mmol/L 05/01/2019 05:26 Potassium Level 3.7 mmol/L 05/01/2019 05:26 Chloride Level 105 mmol/L 05/01/2019 05:26 Carbon Dioxide Level 28 mmol/L 05/01/2019 05:26 Anion Gap 8 LOW 05/01/2019 05:26 Blood Urea Nitrogen 18 mg/dL 05/01/2019 05:26 Glucose Level 152 mg/dL [place] 05/01/2019 05:26 Calcium Level 9.1 mg/dL 05/01/2019 05:26 Magnesium Level 2.3 mg/dL 04/30/2019 10:53 Coagulation Results (Current Encounter/Past 24 Hours) No Coagulation Results Found (Past 24 Hours) Creatinine Clearance (Current Encounter/Past 24 Hours) Creatinine Level 0.50 mg/dL [facility] 05/01/2019 05:26 Bun/Creatinine 36.0 AK 05/01/2019 05:26 Labs Most Recent Last 28 [...] to atelectasis hypokalemia- improved post replacement. PLAN [facility] transfer today No further Potassium replacement [...]
--- OUTSIDE RECORDS SUMMARY | 2024-11-10 09:56 | XMS_ITS | Encounter Summary ---
Author Organization [employer] ([place], [place], [place], [place]) Address [address] [place] [address] Care Team Providers Care Pharmacist In Charge Name Role Phone Unavailable Primary Care Provider Unavailabl e Encounter Details Date Type Department Care Team (Late st Contact Info) Description 04/28/2019 Transcribed Document [facility] [address] [place] [address] Provider, Luciano Bronson MD Social [...] * Cerner Conversion Note - [facility] Aiyana ProviderMD - 04/28/2019 5:40 PM EST Consult Phone Call Documentation Entered On: 04/29/2019 8:03 EST Performed On: 04/28/2019 16:40 EST [facility] Call for Consults Consult Phone Call/Page Attempt : First call Consult Reason : neurogenic bladder Physician Requesting Consult : ALICE MAR PA-INT Provider Team Notified Name : Urology Physician Covering for Consult : NOÉ HAILE MD-URO Date and Time Call Returned : 04/29/2019 8:03 EST Consult, Additional Information : Spoke with Dr. Mcdonald urology resident Marce Multani, [facility] Coord - 04/29/2019 8:02 EST documented in this encounter Plan of Treatment Not on file documented as of this encounter Visit Diagnoses Not on filedocumented in this encounter
--- OUTSIDE RECORDS SUMMARY | 2024-11-10 09:56 | XMS_ITS | Encounter Summary ---
Author Organization [employer] ([place], [place], [place], [place]) Address [address] [place] [address] Care Team Providers Care Ice Guard Skating Rink Name Role Phone Unavailable Primary Care Provider Unavailabl e Encounter Details Date Type Department Care Team (Late st Contact Info) Description 04/28/2019 Transcribed Document [facility] Radiology [address] [place] [address] Provider, Luciano Bronson MD Social History Tobacco Use Types Packs/Day Years Used Date Smoking Tobacco: Never Assessed Comments Unknown Sex and Gender Information Value Date Recorded Sex Assigned at Not on file Legal Sex Female 6:01 PM CDT Gender Identity Not on file Sexual Orientation Not on file documented as of this encounter Miscellaneous Notes * Cerner Conversion Note - [facility] Aiyana ProviderMD - 04/28/2019 2:51 PM EST UM Authorization Entered On: 04/28/2019 13:51 EST Performed On: 04/28/2019 13:51 EST by Gali Newman Rn-Utilization Review Primary Insurance Authorization Authorization and Policy Numbers : Insurance 1 Health Plan: [employer] MED[employer] REPL Policy Number: [id number] Authorization Number: [id number] Insurance Primary Name : Mariela [id number] Authorization Status-Primary : Awaiting callback Authorization Number-Primary : [id number] Authorized Service Begin Date-Primary : 04/25/2019 EST Authorization Comments-Primary : lvm with brigette lui with formerly [facility] for c/s . acb Historical Authorization Comments-Primary : Comment 1: clinicals faxed via [email or web address] for cont stay (only 1 day approved) (BULMARO DUONG RN-Utilization Review 04/26/2019 13:11) Comment 2: per [facility] inpt approved 1 day auth# [id number] (FRANCY MILIAN, Margarine Maker 04/24/2019 13:26) Gali Newman Rn-Utilization Review - 04/28/2019 13:51 EST Electronically signed by Carito [facility] Conversion Mobile Development Manager Cerner at 08/23/2022 11:19 AM CDT documented in this encounter Plan of Treatment Not on file documented as of this encounter Visit Diagnoses Not on filedocumented in this encounter
--- OUTSIDE RECORDS SUMMARY | 2024-11-10 09:56 | XMS_ITS | Encounter Summary ---
Author Organization [employer] ([place], [place], [place], [place]) Address [address] [place] [address] Care Team Providers Care Life Science Taxonomist Name Role Phone Unavailable Primary Care Provider Unavailabl e Encounter Details Date Type Department Care Team (Late st Contact Info) Description 04/28/2019 Transcribed Document [facility] Radiology [address] [place] [address] Provider, Luciano Bronson MD Social History Tobacco Use Types Packs/Day Years Used Date Smoking Tobacco: Never Assessed Comments Unknown Sex and Gender Information Value Date Recorded Sex Assigned at Not on file Legal Sex Female 6:01 PM CDT Gender Identity Not on file Sexual Orientation Not on file documented as of this encounter Miscellaneous Notes * Cerner Conversion Note - [facility] Aiyana ProviderMD - 04/28/2019 9:31 [...] with Hanna Murphy MD Electronically signed by [facility] Conversion Tobacco Stripping Machine Operator Cerner at 08/23/2022 11:19 AM CDT documented in this encounter Plan of Treatment Not on file documented as of this encounter Visit Diagnoses Not on filedocumented in this encounter
--- OUTSIDE RECORDS SUMMARY | 2024-11-10 09:56 | XMS_ITS | Encounter Summary ---
Author Organization [employer] ([place], [place], [place], [place]) Address [address] [place] [address] Care Team Providers Care Tin Pourer Name Role Phone Unavailable Primary Care Provider Unavailabl e Encounter Details Date Type Department Care Team (Late st Contact Info) Description 04/26/2019 Transcribed Document [facility] Radiology [address] [place] [address] ProviderLuciano MD Social History Tobacco [...] [facility] Aiyana ProviderMD - 04/26/2019 6:00 AM EST Chart Check - Review Order Profile Entered On: 04/26/2019 4:20 EST Performed On: 04/26/2019 5:00 EST by Daniela Buckner RN Chart Check Powerplans Initiated/Discontinued as Appropriate : Yes All Active Orders Reviewed : Yes Daniela Buckner RN - 04/26/2019 4:20 EST documented in this encounter Plan of Treatment Not on file documented as of this encounter Visit Diagnoses Not on filedocumented in this encounter
--- OUTSIDE RECORDS SUMMARY | 2024-11-10 09:56 | XMS_ITS | Encounter Summary ---
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 Role Phone Unavailable Primary Care Provider Unavailabl e Encounter Details Date Type Department Care Team (Late st Contact Info) Description 05/02/2019 Transcribed Document [facility] Radiology [address] [place] [address] Provider, [facility] MD Aiyana Social History Tobacco Use Types Packs/Day Years Used Date Smoking Tobacco: Never Assessed Comments Unknown Sex and Gender Information Value Date Recorded Sex Assigned at Not on file Legal Sex Female 6:01 PM CDT Gender Identity Not on file Sexual Orientation Not on file documented as of this encounter Miscellaneous Notes * Cerner Conversion Note - [facility] Aiyana ProviderMD - 05/02/2019 4:44 PM EST [facility] [address] 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, Benign neoplasm of spinal cord, Benign neoplasm of spinal cord Discharge Vitals Heart Rate (Monitored) 82 Respiratory Rate 16 Blood Pressure 133/80 What to do next Instructions From Your Care Team Home Health Services: [facility]-- Medical Equipment for Home Use: [facility]--[phone] Diet after Discharge: Resume usual diet as tolerated, _, _ Activity after Discharge: As tolerated, _, _ Lifting Restrictions: No heavy lifting over 10 pounds Weight Bearing: Full weight bearing Driving after Discharge: Do not drive Showering/Bathing: May shower in 3 days, _ Notify Provider of: notify MD of any redness, swelling excessive drainage or foul smelling drainage Wound/Incision Care after Discharge: Keep operative site/wound site clean and dry, _ Medical Equipment for Home Use: Home Health Services: Community Services: STOP the following medications: STOP Tramadol (Ultram) --- You have been prescribed Percocet (oxycodone-apap) for post op pain relief. Do not take both. Discharge Activity: keep flat or <20 degrees as much as possible when not walking with PT, Discharge Activity: Other (use Special Instructions) Diet: Discharge Diet: Resume usual diet as tolerated Follow-Up Appointments Follow Up with DWIGHT CAMPUZANO MD When 05/23/2019 04:00 PM EST Where: [facility] [address] [place] [address]- Follow Up with MELIZA DOWNS When 05/22/2019 11:00 AM EST Comments See appointment card Where: [address] (SUNDAY ONLY) [place] [address]- Business (1) Follow Up with MELIZA DOWNS When 05/08/2019 01:00 PM EST Comments See appointment card Where: [address] (SUNDAY ONLY) [place] [address]- Business (1) Follow Up with adt When Within 2 to 3 days Follow Up with Follow up with specialist When Within 3 to 5 days Comments follow up with urology in 3-4 weeks Medications What How Much When Instructions Next Dose acetaminophen-oxyCODONE (Percocet 5/ 325 oral tablet) 1 to 2 tablets Oral Every 4 Hours as needed for for pain anytime pregabalin (Lyrica 100 mg oral capsule) 1 Capsule(s) Oral Every 8 Hours midnight cyclobenzaprine 10 Milligram(s) Oral Every 8 Hours as needed for Muscle Spasms NEW DOSE. New prescription provided. anytime albuterol (ProAir HFA 90 mcg/ inh inhalation aerosol) 2 Puff(s) Inhalation Four Times A Day as needed for as needed for wheezing bisoprolol 5 Milligram(s) Oral At Bedtime tonight domperidone (Domperidone) 10 Milligram(s) Oral Four Times A Day 5pm empagliflozin (Jardiance) 10 Milligram(s) Oral Every Morning 2-1 glimepiride 4 Milligram(s) Oral Every Day 2-1 losartan 100 Milligram(s) Oral Every Day 2-1 lubiprostone (Amitiza) 24 Microgram(s) Oral Two Times A Day tonight NIFEdipine (NIFEdipine extended release) 60 Milligram(s) Oral Every Day 2-1 omeprazole 40 Milligram(s) Oral Every Day 2-1 pyridoxine (Vitamin B6) 100 Milligram(s) Oral Two Times A Day tonight rOPINIRole 1 Milligram(s) Oral At Bedtime tonight SITagliptin (Januvia) 100 Milligram(s) Oral Every Day 2-1 topiramate 50 Milligram(s) Oral Every Day as needed for Migraine Headache traZODone 50-100 mg Oral At Bedtime 2-1 Take your medications faithfully. Do NOT skip [...] This Visit No Immunizations Found Education Materials Wound Infection A wound infection happens when [...] at home: Medicines ??? Take or apply dpgo-emr-lifbfdp and prescription medicines only as told by [...] cannot use soap and water, use hand poolroom table attendant. ? Change your bandage as told by [...] 12/26/2008 Document Revised: 08/24/2016 Document Reviewed: 09/06/2015 [employer] Patient Education ?? 2019 [employer] Laminectomy, Care After This sheet gives you [...] and water are not available, use hand poolroom table attendant. ? Change your dressing as told by [...] or a bad smell. Medicines ??? Take taqt-leg-pgyoequ and prescription medicines only as told by [...] ??? Do not sit for more than 20???30 minutes at a time. Lie down or [...] urine clear or pale yellow. ? Take vpot-rcr-umokudi or prescription medicines. ? Eat foods that [...] 10/06/2005 Document Revised: 11/02/2016 Document Reviewed: 09/03/2016 [employer] Interactive Patient Education ?? 2019 [employer]. cyclobenzaprine (demetria young) Amrix, Comfort Pac with Cyclobenzaprine, Fexmid What is the most important information I should know about cyclobenzaprine? You should not use cyclobenzaprine if you have a thyroid disorder, heart block, congestive heart failure, a heart rhythm disorder, or you have recently had a heart attack. Do not use cyclobenzaprine if you have taken an MAO inhibitor in the past 14 days, such as isocarboxazid, linezolid, phenelzine, rasagiline, selegiline, or tranylcypromine. What is cyclobenzaprine? Cyclobenzaprine is a muscle relaxant. It works by blocking nerve impulses (or pain sensations) that are sent to your brain. Cyclobenzaprine is used together with rest and physical therapy to relieve muscle spasms caused by painful conditions such as an injury. Cyclobenzaprine may also be used for purposes not listed in this medication guide. What should I discuss with my healthcare provider before taking cyclobenzaprine? You should not use cyclobenzaprine if you are allergic to it, or if you have: ?? a thyroid disorder; ?? heart block, heart rhythm disorder, congestive heart failure; or ?? if you have recently had a heart attack. Cyclobenzaprine is not approved for use by anyone younger than 15 years old. Do not use cyclobenzaprine if you have taken an MAO inhibitor in the past 14 days. A dangerous drug interaction could occur. MAO inhibitors include isocarboxazid, linezolid, phenelzine, rasagiline, selegiline, and tranylcypromine. Some medicines can interact with cyclobenzaprine and cause a serious condition called serotonin syndrome. Be sure your doctor knows if you also take stimulant medicine, opioid medicine, herbal products, or medicine for depression, mental illness, Parkinson's disease, migraine headaches, serious infections, or prevention of nausea and vomiting. Ask your doctor before making any changes in how or when you take your medications. Tell your doctor if you have ever had: ?? liver disease; ?? glaucoma; ?? enlarged prostate; or ?? problems with urination. It is not known whether this medicine will harm an unborn baby. Tell your doctor if you are or plan to become . It may not be safe to breast-feed while using this medicine. Ask your doctor about any risk. Older adults may be more sensitive to the effects of this medicine. How should I take cyclobenzaprine? Follow all directions on your prescription label and read all medication guides or instruction sheets. Your doctor may occasionally change your dose. Use the medicine exactly as directed. Cyclobenzaprine is usually taken once daily for only 2 or 3 weeks. Follow your doctor's dosing instructions very carefully. Swallow the capsule whole and do not crush, chew, break, or open it. Take the medicine at the same time each day. Call your doctor if your symptoms do not improve after 3 weeks, or if they get worse. Store at room temperature away from moisture, heat, and light. What happens if I miss a dose? Take the medicine as soon as you can, but skip the missed dose if it is almost time for your next dose. Do not take two doses at one time. What happens if I overdose? Seek emergency medical attention or call the Poison Help line at . An overdose of cyclobenzaprine can be fatal. Overdose symptoms may include severe drowsiness, vomiting, fast heartbeats, tremors, agitation, or hallucinations. What should I avoid while taking cyclobenzaprine? Avoid driving or hazardous activity until you know how this medicine will affect you. Your reactions could be impaired. Avoid drinking alcohol. Dangerous side effects could occur. What are the possible side effects of cyclobenzaprine? Get emergency medical help if you have signs of an allergic reaction: hives; difficult breathing; swelling of your face, lips, tongue, or throat. Stop using cyclobenzaprine and call your doctor at once if you have: ?? fast or irregular heartbeats; ?? chest pain or pressure, pain spreading to your jaw or shoulder; or ?? sudden numbness or weakness (especially on one side of the body), slurred speech, balance problems. Seek medical attention right away if you have symptoms of serotonin syndrome, such as: agitation, hallucinations, fever, sweating, shivering, fast heart rate, muscle stiffness, twitching, loss of coordination, nausea, vomiting, or diarrhea. Serious side effects may be more likely in older adults. Common side effects may include: ?? drowsiness, tiredness; ?? headache, dizziness; ?? dry mouth; or ?? upset stomach, nausea, constipation. This is not a complete list of side effects and others may occur. Call your doctor for medical advice about side effects. You may report side effects to FDA at 6-943-ENP-1693. What other drugs will affect cyclobenzaprine? Using cyclobenzaprine with other drugs that make you drowsy can worsen this effect. Ask your doctor before using opioid medication, a sleeping pill, a muscle relaxer, or medicine for anxiety or seizures. Tell your doctor about all your other medicines, especially: ?? bupropion (Zyban, for smoking cessation); ?? meperidine; ?? tramadol; ?? verapamil; ?? cold or allergy medicine that contains an antihistamine (Benadryl and others); ?? medicine to treat Parkinson's disease; ?? medicine to treat excess stomach acid, stomach ulcer, motion sickness, or irritable bowel syndrome; ?? medicine to treat overactive bladder; or ?? bronchodilator asthma medication. This list is not complete. Other drugs may affect cyclobenzaprine, including prescription and ypml-sry-enemtvo medicines, vitamins, and herbal products. Not all possible drug interactions are listed here. Where can I get more information? Your pharmacist can provide more information about cyclobenzaprine. Remember, keep this and all other medicines out of the reach of children, never share your medicines with others, and use this medication only for the indication prescribed. Every effort has been made to ensure that the information provided by [employer]') is accurate, up-to-date, and complete, but no guarantee is made to that effect. Drug information contained herein may be time sensitive. [employer] information has been compiled for use by healthcare practitioners and consumers in the [place] and therefore [employer] does not warrant that uses outside of the [place] are appropriate, unless specifically indicated otherwise. [employer] drug information does not endorse drugs, diagnose patients or recommend therapy. [employer] drug information is an informational resource designed to assist licensed healthcare practitioners in caring for their patients and/or to serve consumers viewing this service as a supplement to, and not a substitute for, the expertise, skill, knowledge and judgment of healthcare practitioners. The absence of a warning for a given drug or drug combination in no way should be construed to indicate that the drug or drug combination is safe, effective or appropriate for any given patient. [employer] does not assume any responsibility for any aspect of healthcare administered with the aid of information [employer] provides. The information contained herein is not intended to cover all possible uses, directions, precautions, warnings, drug interactions, allergic reactions, or adverse effects. If you have questions about the drugs you are taking, check with your doctor, nurse or pharmacist. Copyright 3152-7860 [employer] Version: 5.01. Revision Date: 12/26/2017. pregabalin (pre STAN a deneen) Caden Negrete What is the most important information I should know about pregabalin? Pregabalin can cause a severe allergic reaction. Stop taking this medicine and seek emergency medical help if you have hives or blisters on your skin, trouble breathing, or swelling in your face, mouth, or throat. Some people have thoughts about suicide while taking pregabalin. Stay alert to changes in your mood or symptoms. Report any new or worsening symptoms to your doctor. If you have diabetes or heart problems, call your doctor if you have weight gain or swelling in your hands or feet while taking pregabalin. Do not stop using pregabalin suddenly, even if you feel fine. Stopping suddenly may cause withdrawal symptoms. What is pregabalin? Pregabalin is an anti-epileptic drug, also called an anticonvulsant. It works by slowing down impulses in the brain that cause seizures. Pregabalin also affects chemicals in the brain that send pain signals across the nervous system. Pregabalin is used to treat pain caused by fibromyalgia, or nerve pain in people with diabetes (diabetic neuropathy), herpes zoster (post-herpetic neuralgia), or spinal cord injury. Pregabalin is also used with other medications to treat partial onset seizures in adults and children who are at least 4 years old. Pregabalin may also be used for purposes not listed in this medication guide. What should I discuss with my healthcare provider before taking pregabalin? You should not use pregabalin if you are allergic to it. Tell your doctor if you have ever had: ?? a mood disorder, depression, or suicidal thoughts; ?? heart problems (especially congestive heart failure); ?? a bleeding disorder; ?? low levels of platelets in your blood; ?? kidney disease (or if you are on dialysis); ?? diabetes (unless you are taking pregabalin to treat diabetic neuropathy); ?? drug or alcohol addiction; or ?? a severe allergic reaction (angioedema). Some people have thoughts about suicide while taking pregabalin. Your doctor will need to check your progress at regular visits. Your family or other caregivers should also be alert to changes in your mood or symptoms. Follow your doctor's instructions about taking seizure medication if you are . Seizure control is very important during , and having a seizure could harm both mother and baby. Do not start or stop taking this medicine without your doctor's advice, and tell your doctor right away if you become . If you are , your name may be listed on a registry to track the effects of pregabalin on the baby. This medication can decrease sperm count and may affect fertility in men (your ability to have children). In animal studies, pregabalin also caused defects in the offspring of males treated with this medicine. However, it is not known whether these effects would occur in humans. Ask your doctor about your risk. You should not breast-feed while using pregabalin. Do not give this medicine to a child without medical advice. Pregabalin is not approved for seizures in anyone younger than 4 years old. How should I take pregabalin? Follow all directions on your prescription label and read all medication guides or instruction sheets. Your doctor may occasionally change your dose. Use the medicine exactly as directed. Take the medicine at the same time each day, with or without food. Do not crush, chew, or break an extended-release tablet. Swallow it whole. Measure liquid medicine with the dosing syringe provided, or with a special dose-measuring spoon or medicine cup. If you do not have a dose-measuring device, ask your pharmacist for one. Do not stop using pregabalin suddenly, even if you feel fine, or you could have unpleasant withdrawal symptoms. Follow your doctor's instructions about tapering your dose for at least 1 week before stopping completely. Call your doctor if your symptoms do not improve, or if they get worse. In case of emergency, wear or carry medical identification to let others know you take seizure medication. Store at room temperature away from moisture, heat, and light. What happens if I miss a dose? Take the medicine as soon as you can, but skip the missed dose if it is almost time for your next dose. Do not take two doses at one time. What happens if I overdose? Seek emergency medical attention or call the Poison Help line at . What should I avoid while taking pregabalin? Avoid drinking alcohol. It may increase certain side effects of pregabalin. Avoid driving or hazardous activity until you know how this medicine will affect you. Your reactions could be impaired. What are the possible side effects of pregabalin? Pregabalin can cause a severe allergic reaction. Stop taking this medicine and get emergency medical help if you have: hives or blisters on your skin; difficult breathing; swelling of your face, lips, tongue, or throat. Report any new or worsening symptoms to your doctor, such as: mood or behavior changes, depression, anxiety, panic attacks, trouble sleeping, or if you feel impulsive, irritable, agitated, hostile, aggressive, restless, hyperactive (mentally or physically), or have thoughts about suicide or hurting yourself. Call your doctor at once if you have: ?? vision problems; ?? skin sores (if you have diabetes); ?? easy bruising, unusual bleeding; ?? swelling in your hands or feet, rapid weight gain (especially if you have diabetes or heart problems); or ?? unexplained muscle pain, tenderness, or weakness (especially if you also have fever, unusual tiredness, or dark colored urine). If you have diabetes, tell your doctor right away if you have any new sores or other skin problems. Common side effects may include: ?? dizziness, drowsiness; ?? swelling in your hands and feet; ?? trouble concentrating; ?? increased appetite; ?? weight gain; ?? dry mouth; or ?? blurred vision. This is not a complete list of side effects and others may occur. Call your doctor for medical advice about side effects. You may report side effects to FDA at 3-710-LWP-3321. What other drugs will affect pregabalin? Using pregabalin with other drugs that make you drowsy can worsen this effect. Ask your doctor before using opioid medication, a sleeping pill, a muscle relaxer, or medicine for anxiety or seizures. Tell your doctor about all your other medicines, especially: ?? oral diabetes medicine--pioglitazone, rosiglitazone; or ?? an JORGITO inhibitor--benazepril, captopril, enalapril, fosinopril, lisinopril, moexipril, perindopril, quinapril, ramipril, or trandolapril. This list is not complete. Other drugs may affect pregabalin, including prescription and thmj-zmo-zvvqabv medicines, vitamins, and herbal products. Not all possible drug interactions are listed here. Where can I get more information? Your pharmacist can provide more information about pregabalin. Remember, keep this and all other medicines out of the reach of children, never share your medicines with others, and use this medication only for the indication prescribed. Every effort has been made to ensure that the information provided by [employer]') is accurate, up-to-date, and complete, but no guarantee is made to that effect. Drug information contained herein may be time sensitive. [employer] information has been compiled for use by healthcare practitioners and consumers in the [place] and therefore [employer] does not warrant that uses outside of the [place] are appropriate, unless specifically indicated otherwise. [employer] drug information does not endorse drugs, diagnose patients or recommend therapy. [employer] drug information is an informational resource designed to assist licensed healthcare practitioners in caring for their patients and/or to serve consumers viewing this service as a supplement to, and not a substitute for, the expertise, skill, knowledge and judgment of healthcare practitioners. The absence of a warning for a given drug or drug combination in no way should be construed to indicate that the drug or drug combination is safe, effective or appropriate for any given patient. [employer] does not assume any responsibility for any aspect of healthcare administered with the aid of information [employer] provides. The information contained herein is not intended to cover all possible uses, directions, precautions, warnings, drug interactions, allergic reactions, or adverse effects. If you have questions about the drugs you are taking, check with your doctor, nurse or pharmacist. Copyright 6556-7410 [employer] Version: 8.01. Revision Date: 09/11/2017. acetaminophen and oxycodone (a SEET a MIN oh fen and OX i KOE done) Endocet 10/325, Endocet 2.5/325, Endocet 5/325, Endocet 7.5/325, Nalocet, Percocet 10/325, Percocet 2.5/325, Percocet 5/325, Percocet 7.5/325, Primalev, Primlev, Roxicet, Xartemis XR What is the most important information I should know about acetaminophen and oxycodone? MISUSE OF OPIOID MEDICINE CAN CAUSE ADDICTION, OVERDOSE, OR . Keep the medication in a place where others cannot get to it. An overdose of acetaminophen can damage your liver or cause . Call your doctor at once if you have pain in your upper stomach, loss of appetite, dark urine, or jaundice (yellowing of your skin or eyes). Taking opioid medicine during may cause life-threatening withdrawal symptoms in the . Fatal side effects can occur if you use opioid medicine with alcohol, or with other drugs that cause drowsiness or slow your breathing. Stop taking this medicine and call your doctor right away if you have skin redness or a rash that spreads and causes blistering and peeling. What is acetaminophen and oxycodone? Oxycodone is an opioid pain medication, sometimes called a narcotic. Acetaminophen is a less potent pain reliever that increases the effects of oxycodone. Acetaminophen and oxycodone is a combination medicine used to relieve moderate to severe pain. Acetaminophen and oxycodone may also be used for purposes not listed in this medication guide. What should I discuss with my healthcare provider before taking acetaminophen and oxycodone? You should not use this medicine if you are allergic to acetaminophen or oxycodone, or if you have: ?? severe asthma or breathing problems; or ?? a blockage in your stomach or intestines. Tell your doctor if you have ever had: ?? liver disease; ?? a drug or alcohol addiction; ?? kidney disease; ?? a head injury or seizures; ?? urination problems; or ?? problems with your thyroid, pancreas, or gallbladder. If you use opioid medicine while you are , your baby could become dependent on the drug. This can cause life-threatening withdrawal symptoms in the baby after it is born. Babies born dependent on opioids may need medical treatment for several weeks. Do not breast-feed. This medicine can pass into breast milk and cause drowsiness, breathing problems, or in a nursing baby. How should I take acetaminophen and oxycodone? Follow all directions on your prescription label. Never take this medicine in larger amounts, or for longer than prescribed. An overdose can damage your liver or cause . Tell your doctor if the medicine seems to stop working as well in relieving your pain. Never share this medicine with another person, especially someone with a history of drug abuse or addiction. MISUSE CAN CAUSE ADDICTION, OVERDOSE, OR . Keep the medicine in a place where others cannot get to it. Selling or giving away acetaminophen and oxycodone is against the law. Measure liquid medicine carefully. Use the dosing syringe provided, or use a medicine dose-measuring device (not a kitchen spoon). If you need surgery or medical tests, tell the doctor ahead of time that you are using this medicine. You should not stop using this medicine suddenly. Follow your doctor's instructions about tapering your dose. Store at room temperature away from moisture and heat. Keep track of your medicine. You should be aware if anyone is using it improperly or without a prescription. Do not keep leftover opioid medication. Just one dose can cause in someone using this medicine accidentally or improperly. Ask your pharmacist where to locate a drug take-back disposal program. If there is no take-back program, flush the unused medicine down the toilet. What happens if I miss a dose? Since this medicine is used for pain, you are not likely to miss a dose. Skip any missed dose if it is almost time for your next dose. Do not use two doses at one time. What happens if I overdose? Seek emergency medical attention or call the Poison Help line at . An overdose of acetaminophen and oxycodone can be fatal. The first signs of an acetaminophen overdose include loss of appetite, nausea, vomiting, stomach pain, sweating, and confusion or weakness. Later symptoms may include pain in your upper stomach, dark urine, and yellowing of your skin or the whites of your eyes. Overdose can also cause severe muscle weakness, pinpoint pupils, very slow breathing, extreme drowsiness, or coma. What should I avoid while taking acetaminophen and oxycodone? Avoid driving or operating machinery until you know how this medicine will affect you. Dizziness or drowsiness can cause falls, accidents, or severe injuries. Do not drink alcohol. Dangerous side effects or could occur. Ask a doctor or pharmacist before using any other medicine that may contain acetaminophen (sometimes abbreviated as APAP). Taking certain medications together can lead to a fatal overdose. What are the possible side effects of acetaminophen and oxycodone? Get emergency medical help if you have signs of an allergic reaction: hives; difficulty breathing; swelling of your face, lips, tongue, or throat. Opioid medicine can slow or stop your breathing, and may occur. A person caring for you should seek emergency medical attention if you have slow breathing with long pauses, blue colored lips, or if you are hard to wake up. In rare cases, acetaminophen may cause a severe skin reaction that can be fatal. This could occur even if you have taken acetaminophen in the past and had no reaction. Stop taking this medicine and call your doctor right away if you have skin redness or a rash that spreads and causes blistering and peeling. Call your doctor at once if you have: ?? noisy breathing, sighing, shallow breathing; ?? a light-headed feeling, like you might pass out; ?? weakness, tiredness, fever, unusual bruising or bleeding; ?? confusion, unusual thoughts or behavior; ?? problems with urination; ?? liver problems--nausea, upper stomach pain, tiredness, loss of appetite, dark urine, wade-colored stools, jaundice (yellowing of the skin or eyes); or ?? low cortisol levels-- nausea, vomiting, loss of appetite, dizziness, worsening tiredness or weakness. Seek medical attention right away if you have symptoms of serotonin syndrome, such as: agitation, hallucinations, fever, sweating, shivering, fast heart rate, muscle stiffness, twitching, loss of coordination, nausea, vomiting, or diarrhea. Serious side effects may be more likely in older adults and those who are overweight, malnourished, or debilitated. Long-term use of opioid medication may affect fertility (ability to have children) in men or women. It is not known whether opioid effects on fertility are permanent. Common side effects include: ?? dizziness, drowsiness, feeling tired; ?? feelings of extreme happiness or sadness; ?? nausea, vomiting, stomach pain; ?? constipation; or ?? headache. This is not a complete list of side effects and others may occur. Call your doctor for medical advice about side effects. You may report side effects to FDA at 0-467-HCS-9172. What other drugs will affect acetaminophen and oxycodone? You may have breathing problems or withdrawal symptoms if you start or stop taking certain other medicines. Tell your doctor if you also use an antibiotic, antifungal medication, heart or blood pressure medication, seizure medication, or medicine to treat HIV or hepatitis C. Opioid medication can interact with many other drugs and cause dangerous side effects or . Be sure your doctor knows if you also use: ?? cold or allergy medicines, bronchodilator asthma/COPD medication, or a diuretic ('water pill'); ?? medicines for motion sickness, irritable bowel syndrome, or overactive bladder; ?? other narcotic medications--opioid pain medicine or prescription cough medicine; ?? a sedative like Valium--diazepam, alprazolam, lorazepam, Xanax, Klonopin, Versed, and others; ?? drugs that make you sleepy or slow your breathing--a sleeping pill, muscle relaxer, medicine to treat mood disorders or mental illness; ?? drugs that affect serotonin levels in your body--a stimulant, or medicine for depression, Parkinson's disease, migraine headaches, serious infections, or nausea and vomiting. This list is not complete. Other drugs may affect acetaminophen and oxycodone, including prescription and bxtd-yyu-mfehaaw medicines, vitamins, and herbal products. Not all possible interactions are listed here. Where can I get more information? Your doctor or pharmacist can provide more information about acetaminophen and oxycodone. Remember, keep this and all other medicines out of the reach of children, never share your medicines with others, and use this medication only for the indication prescribed. Every effort has been made to ensure that the information provided by [employer] ('[employer]') is accurate, up-to-date, and complete, but no guarantee is made to that effect. Drug information contained herein may be time sensitive. [employer] information has been compiled for use by healthcare practitioners and consumers in the [place] and therefore [employer] does not warrant that uses outside of the [place] are appropriate, unless specifically indicated otherwise. [employer] drug information does not endorse drugs, diagnose patients or recommend therapy. [employer] drug information is an informational resource designed to assist licensed healthcare practitioners in caring for their patients and/or to serve consumers viewing this service as a supplement to, and not a substitute for, the expertise, skill, knowledge and judgment of healthcare practitioners. The absence of a warning for a given drug or drug combination in no way should be construed to indicate that the drug or drug combination is safe, effective or appropriate for any given patient. [employer] does not assume any responsibility for any aspect of healthcare administered with the aid of information [employer] provides. The information contained herein is not intended to cover all possible uses, directions, precautions, warnings, drug interactions, allergic reactions, or adverse effects. If you have questions about the drugs you are taking, check with your doctor, nurse or pharmacist. Copyright 8256-4070 [employer] Version: 18.02. Revision Date: 02/27/2018. Emergency Awareness and Preventative Care STROKE is [...] Assistance with quitting is available by contacting 9-351-PRLW-NOW. This is a free resource providing counseling, support, and referral. Or you may contact your personal physician. [employer] Suicide Prevention Lifeline: The National Suicide Prevention [...] CPR? There are two easy steps: Call if you see a teen or adult [...] This Visit (last charted value for your 04/25/2019 visit) Hematology 05/02/2019 3:02 AM WBC: 7.6 K/uL -- Normal range between ( 4.5 and 10.5 ) RBC: 4.26 Million/uL -- Normal range between ( 3.93 and 5.22 ) Hct: 38.9 % -- Normal range between ( 34.1 and 44.9 ) Hgb: 12.5 g/dL -- Normal range between ( 11.2 and 15.7 ) Platelet Count: 317 K/uL -- Normal range between ( 163 and 369 ) MCH: 29.3 pg -- Normal range between ( 25.6 and 32.2 ) MCHC: 32.1 Gram/dL -- Normal range between ( 32.2 and 36.5 ) MCV: 91.3 fL -- Normal range between ( 79.0 and 94.8 ) Hypochromia: 1+ RBC Morphology: Abnormal RDW: 13.7 % -- Normal range between ( 11.7 and 14.9 ) Mcintosh Percent Man: 8 % -- Normal range between ( 4 and 5 ) Baso Percent Man: 1 % -- Normal range between ( 0 and 1 ) Neutrophil Percent Man: 60 % -- Normal range between ( 50 and 65 ) Eos Percent Man: 7 % -- Normal range between ( 0 and 3 ) Anisocytosis: 1+ Platelet Ct Estimate: Adequate MPV: 10.8 fL -- Normal range between ( 9.4 and 12.4 ) Lymph Percent Man: 24 % -- Normal range between ( 24 and 44 ) 05/01/2019 3:10 AM Slide Review: No Eos %: 3.4 % -- Normal range between ( 0.0 and 7.0 ) Mcintosh #: 0.62 K/uL -- Normal range between ( 0.16 and 1.00 ) Eos #: 0.28 x10(3)/uL -- Normal range between ( 0.00 and 0.80 ) Mcintosh %: 7.5 % -- Normal range between ( 3.0 and 9.0 ) Baso %: 1.0 % -- Normal range between ( 0.0 and 1.5 ) Baso #: 0.08 x10(3)/uL -- Normal range between ( 0.00 and 0.20 ) Neut %: 64.7 % -- Normal range between ( 34.0 and 71.0 ) Neut #: 5.39 K/uL -- Normal range between ( 1.56 and 6.13 ) Lymph %: 22.8 % -- Normal range between ( 19.3 and 53.1 ) Lymph #: 1.90 x10(3)/uL -- Normal range between ( 1.00 and 3.90 ) IG#: 0.05 x10(3)/uL -- Normal range between ( 0.00 and 0.05 ) IG%: 0.60 % -- Normal range between ( 0.00 and 0.60 ) Urinalysis 04/28/2019 8:57 AM Ur RBC: 10-20 /HPF Urine Nitrite: Negative Urine Leukocyte Esterase: Negative Urine Appearance: Clear Urine Glucose Dipstick: >=1000 Urine Blood Dipstick: Moderate Urine Urobilinogen Dipstick: 1.0 EU/dL Urine Protein Dipstick: Negative Ur Bacteria: Trace Urine Color: Yellow Ur WBC: 0-2 /HPF Urine Ketones Dipstick: Negative Urine pH Dipstick: 6.5 -- Normal range between ( 6.0 and 8.0 ) Urine Bilirubin Dipstick: Negative Urine Specific [place]: >1.030 -- Normal range between ( 1.005 and 1.030 ) Urine Type.: U Cath 04/15/2019 8:26 AM Urine Type: U ZAO Begun Blood Bank 04/25/2019 8:37 AM ABO/Rh Repeat: O POS 04/25/2019 8:35 AM ABO/Rh (ECHO): O POS Antibody Screen: Negative ABSC General Chemistry 05/02/2019 11:39 AM Glucose POC2: 130 mg/dL -- Normal range between ( 70 and 110 ) Device Comment 1: Device Comment 1 05/02/2019 3:02 AM Creatinine Level: 0.60 mg/dL -- Normal range between ( 0.55 and 1.02 ) Sodium Level: 137 mmol/L -- Normal range between ( 136 and 146 ) Potassium Level: 3.9 mmol/L -- Normal range between ( 3.5 and 5.1 ) Chloride Level: 104 mmol/L -- Normal range between ( 102 and 112 ) Carbon Dioxide Level: 27 mmol/L -- Normal range between ( 21 and 32 ) Anion Gap: 10 -- Normal range between ( 9 and 20 ) Bun/Creatinine: 28.3 -- Normal range between ( 8.0 and 20.0 ) Calcium Level: 9.0 mg/dL -- Normal range between ( 8.4 and 10.1 ) eGFR : >60 mL/min/1.73m2 eGFR NonAfrican: >60 mL/min/1.73m2 Glucose Level: 164 mg/dL -- Normal range between ( 74 and 106 ) Blood Urea Nitrogen: 17 mg/dL -- Normal range between ( 7 and 22 ) 04/30/2019 3:51 AM Magnesium Level: 2.3 mg/dL -- Normal range between ( 1.5 and 2.4 ) 04/15/2019 8:32 AM Bilirubin Total: 0.4 mg/dL -- Normal range between ( 0.2 and 1.2 ) Hgb A1C: 7.1 % A/G Ratio: 0.8 -- Normal range between ( 1.1 and 2.5 ) ALT: 53 Units/Liter -- Normal range between ( 13 and 56 ) AST: 29 Units/Liter -- Normal range between ( 5 and 37 ) Globulin: 4.4 Gram/dL -- Normal range between ( 1.5 and 4.5 ) Alk Phos: 181 Units/Liter -- Normal range between ( 27 and 136 ) eAVG Glucose: 157 mg/dL Bilirubin Direct: <0.1 mg/dL -- Normal range between ( 0.0 and 0.2 ) Protein Total: 8.1 Gram/dL -- Normal range between ( 6.4 and 8.2 ) Albumin Level: 3.7 Gram/dL -- Normal range between ( 3.4 and 5.0 ) Diagnostic Radiology 04/25/2019 5:52 PM CR Fluoro in OR: CR Fluoro in OR Patient Name:GERTRUDIS DALY I have received and understand this information and was given the opportunity to ask questions. Patient/Bearing Inspector Name: Patient/Bearing Inspector Signature: Relationship to Patient: Clinician/Hospital Bearing Inspector Signature: Date: documented in this encounter Plan of Treatment Not on file documented as of this encounter Visit Diagnoses Not on filedocumented in this encounter
--- OUTSIDE RECORDS SUMMARY | 2024-11-10 09:56 | XMS_ITS | Encounter Summary ---
Author Organization [employer] ([place], [place], [place], [place]) Address [address] [place] [address] Care Team Providers Care Enrollment Coordinator Name Role Phone Unavailable Primary Care Provider Unavailabl e Encounter Details Date Type Department Care Team (Late st Contact Info) Description 05/02/2019 Transcribed Document [facility] Radiology [address] [place] [address] Provider, Luciano Bronson MD Social History Tobacco Use Types Packs/Day Years Used Date Smoking Tobacco: Never Assessed Comments Unknown Sex and Gender Information Value Date Recorded Sex Assigned at Not on file Legal Sex Female 6:01 PM CDT Gender Identity Not on file Sexual Orientation Not on file documented as of this encounter Miscellaneous Notes * Cerner Conversion Note - [facility] Aiyana ProviderMD - 05/02/2019 9:47 AM EST UM Authorization Entered On: 05/02/2019 8:49 EST Performed On: 05/02/2019 8:47 EST by Gali Newman Rn-Utilization Review Primary Insurance Authorization Authorization and Policy Numbers : Insurance 1 Health Plan: [employer] MEDICARE REPL Policy Number: [id number] Authorization Number: [id number] Insurance Primary Name : Tanya [id number] Authorization Status-Primary : Admit approved Authorization Number-Primary : [id number] Number of Days Authorized-Primary : 8 Day(s) Authorized Service Begin Date-Primary : 04/25/2019 EST Authorized Service End Date-Primary : 05/03/2019 EST Authorization Comments-Primary : c/s auth approved per brigette for 05/01 to 05/02. minh 05/03 Historical Authorization Comments-Primary : Comment 1: Authorized per fax 04/29/2019 @ 1530. Approved x5 days (6 total: 04/25-04/30). Next review due on 05/01/2019. Tameka Davidson, RN. (Dayna Rios, Founder And Chief Technical Officer 04/30/2019 07:06) Comment 2: clinical faxed per cerner for 04/27 and 04/28 (Gali Newman, Rn-Utilization Review 04/28/2019 15:19) Comment 3: call back from tameka lui with [employer] requesting clinical be faxed to [phone]. clinical faxed per cerner (Gali Newman, Rn-Utilization Review 04/28/2019 15:17) Comment 4: lvm with brigette lui with tanya for c/s . acb (Gali Newman, Rn-Utilization Review 04/28/2019 13:51) Comment 5: clinicals faxed via cerner for cont stay (only 1 day approved) (BULMARO DUONG, RN-Utilization Review 04/26/2019 13:11) Comment 6: per STAR inpt approved 1 day auth# [id number] (FRANCY MILIAN, Mission Assessment Specialist 04/24/2019 13:26) Gali Newman, Deya-Utilization Review - 05/02/2019 8:47 EST Electronically signed by Luciano Arzate Conversion Buffing And Polishing Wheel Repairer Cerner at 08/23/2022 11:19 AM CDT documented in this encounter Plan of Treatment Not on file documented as of this encounter Visit Diagnoses Not on filedocumented in this encounter
--- OUTSIDE RECORDS SUMMARY | 2024-11-10 09:56 | XMS_ITS | Encounter Summary ---
Author Organization [employer] ([place], [place], [place], [place]) Address [address] [place] [address] Care Team Providers Care Pole Shaver Name Role Phone Unavailable Primary Care Provider Unavailabl e Encounter Details Date Type Department Care Team (Late st Contact Info) Description 04/28/2019 Transcribed Document [facility] Radiology [address] [place] [address] Provider, Luciano Bronson MD Social [...] [facility] Aiyana ProviderMD - 04/28/2019 10:32 AM EST UM Authorization Entered On: 04/28/2019 9:32 EST Performed On: 04/28/2019 9:32 EST by Gali Newman Rn-Utilization Review Primary Insurance Authorization Authorization and Policy Numbers : Insurance 1 Health Plan: [employer] MEDICARE REPL Policy Number: [id number] Authorization Number: [id number] Insurance Primary Name : Mariela [id number] Authorization Status-Primary : Awaiting callback Authorization Number-Primary : [id number] Authorized Service Begin Date-Primary : 04/25/2019 EST Historical Authorization Comments-Primary : Comment 1: clinicals faxed via [employer] for cont stay (only 1 day approved) (BULMARO DUONG, RN-Utilization Review 04/26/2019 13:11) Comment 2: per [facility] inpt approved 1 day auth# [id number] (FRANCY MILIAN, Vamp Liner 04/24/2019 13:26) Gali Newman Rn-Utilization Review - 04/28/2019 9:32 EST Electronically signed by Carito, [facility] Conversion Flame Planer Cerner at 08/23/2022 11:19 AM CDT documented in this encounter Plan of Treatment Not on file documented as of this encounter Visit Diagnoses Not on filedocumented in this encounter
--- OUTSIDE RECORDS SUMMARY | 2024-11-10 09:56 | XMS_ITS | Encounter Summary ---
Author Organization [employer] ([place], [place], [place], [place]) Address [address] [place] [address] Care Team Providers Care Diesel Powerplant Mechanic Helper Name Role Phone Unavailable Primary Care Provider Unavailabl e Encounter Details Date Type Department Care Team (Late st Contact Info) Description 04/30/2019 Transcribed Document [facility] Radiology [address] [place] [address] Provider, Luciano Bronson MD Social [...] * Cerner Conversion Note - [facility] Aiyana ProviderMD - 04/30/2019 8:06 AM EST UM Authorization Entered On: 04/30/2019 7:07 EST Performed On: 04/30/2019 7:06 EST by Dayna Rios, Marketing Intelligence Analyst Primary Insurance Authorization Authorization and Policy Numbers : Insurance 1 Health Plan: [employer] MEDICARE REPL Policy Number: [id number] Authorization Number: [id number] Insurance Primary Name : Tanya [id number] Authorization Status-Primary : Admit approved Authorization Number-Primary : [id number] Number of Days Authorized-Primary : 5 Day(s) [...] 2: call back from tameka lui with tanya requesting clinical be faxed to [phone]. clinical faxed per cerner (Gali Newman, Rn-Utilization Review 04/28/2019 15:17) Comment 3: lvm with brigette lui with tanya for c/s . acb (Gali Newman, Rn-Utilization Review 04/28/2019 13:51) Comment 4: clinicals faxed via cerner for cont stay (only 1 day approved) (BULMARO DUONG, RN-Utilization Review 04/26/2019 13:11) Comment 5: per [facility] inpt approved 1 day auth# [id number] (FRANCY MILIAN, Garage Hand 04/24/2019 13:26) Dayna Rios, Marketing Intelligence Analyst - 04/30/2019 7:06 EST documented in this encounter Plan of Treatment Not on file documented as of this encounter Visit Diagnoses Not on filedocumented in this encounter
--- OUTSIDE RECORDS SUMMARY | 2024-11-10 09:56 | XMS_ITS | Clinical Summary ---
Author Organization [employer] [facility] ([place], [place], [place], [place]) Address [address] [place] [address] Care Team Providers Care Fixed Assets Accountant Name Role Phone Unavailable Primary Care Provider [...]
--- OUTSIDE RECORDS SUMMARY | 2024-11-10 09:56 | XMS_ITS | Encounter Summary ---
Author Organization [employer] ([place], [place], [place], [place]) Address [address] [place] [address] Care Team Providers Care Vp Platforms Name Role Phone Unavailable Primary Care Provider Unavailabl e Encounter Details Date Type Department Care Team (Late st Contact Info) Description 04/27/2019 Transcribed Document [facility] Radiology [address] [place] [address] Alverto Murphy MD [facility] [address] [address] Social History Tobacco Use Types Packs/Day [...] 86 (APR 27 11:00) H 156 (APR 26:00) DBP L 54 (APR 27 12:00) L 48 (APR 27 11:00) 74 (APR 26 15:00) MAP 78 (APR 27 12:00) 61 (APR 27 11:00) 106 (APR 26 15:00) SpO2 L 93 (APR 27 12:00) L 92 (APR 26 23:00) 97 (APR 26:00) WD WN white woman in no distress; [...]
--- OUTSIDE RECORDS SUMMARY | 2024-11-10 09:56 | XMS_ITS | Encounter Summary ---
Author Organization [employer] ([place], [place], [place], [place]) Address [address] [place] [address] Care Team Providers Care Associate Veterinarian Name Role Phone Unavailable Primary Care Provider Unavailabl e Encounter Details Date Type Department Care Team (Late st Contact Info) Description 04/28/2019 Transcribed Document [facility] Radiology [address] [place] [address] Provider, Luciano Bronson MD Social History Tobacco Use Types Packs/Day Years Used Date Smoking Tobacco: Never Assessed Comments Unknown Sex and Gender Information Value Date Recorded Sex Assigned at Not on file Legal Sex Female 6:01 PM CDT Gender Identity Not on file Sexual Orientation Not on file documented as of this encounter Miscellaneous Notes * Cerner Conversion Note - [facility] Aiyana ProviderMD - 04/28/2019 4:17 PM EST UM Authorization Entered On: 04/28/2019 15:19 EST Performed On: 04/28/2019 15:17 EST by Gali Newman Rn-Utilization Review Primary Insurance Authorization Authorization and Policy Numbers : Insurance 1 Health Plan: [employer] MEDICARE REPL Policy Number: [id number] Authorization Number: [id number] Insurance Primary Name : Tanya [id number] Authorization Status-Primary : Awaiting callback Authorization Number-Primary : [id number] Authorized Service Begin Date-Primary : 04/25/2019 EST Authorization Comments-Primary : call back from ten lui with tanya requesting clinical be faxed to [phone]. clinical faxed per faith Bronson Authorization Comments-Primary : Comment 1: lvm with brigette lui with tanya for c/s . acb (Trent, Gali L, Rn-Utilization Review 04/28/2019 13:51) Comment 2: clinicals faxed via cerner for cont stay (only 1 day approved) (BULMARO DUONG, RN-Utilization Review 04/26/2019 13:11) Comment 3: per [facility] inpt approved 1 day auth# [id number] (FRANCY MILIAN, Handcrew Foreman 04/24/2019 13:26) Gali Newman Rn-Utilization Review - 04/28/2019 15:17 EST documented in this encounter Plan of Treatment Not on file documented as of this encounter Visit Diagnoses Not on filedocumented in this encounter
--- OUTSIDE RECORDS SUMMARY | 2024-11-10 09:56 | XMS_ITS | Encounter Summary ---
Author Organization [employer] ([place], [place], [place], [place]) Address [address] [place] [address] Care Team Providers Care Smash Fixer Name Role Phone Unavailable Primary Care Provider Unavailabl e Encounter Details Date Type Department Care Team (Late st Contact Info) Description 05/01/2019 Transcribed Document [facility] Neurology - [address] [facility] [address] [place] [id number] Lane Ortiz Jr., MD [facility] [place] [id number] Social History Tobacco Use Types Packs/Day Years [...] 100 mg= 2 Cap, Oral, TID Metamucil Isabella Smooth Texture Sugar Free, 1 Packet, Oral, [...] Lymph # 1.90 x10(3)/uL 05/01/2019 03:10 EST [place] % 7.5 % 05/01/2019 03:10 EST [place] # 0.62 K/uL 05/01/2019 03:10 EST Eos [...]
--- OUTSIDE RECORDS SUMMARY | 2024-11-10 09:56 | XMS_ITS | Encounter Summary ---
Author Organization [employer] ([place], [place], [place], [place]) Address [address] [place] [address] Care Team Providers Care Federal Judge Name Role Phone Unavailable Primary Care Provider Unavailabl e Encounter Details Date Type Department Care Team (Late st Contact Info) Description 05/01/2019 Transcribed Document [facility] Radiology 1 [place] [address] Provider, Luciano Bronson MD Social [...] - [facility] Aiyana ProviderMD - 05/01/2019 12:50 [...] Date Met : 04/28/2019 EST 04/27/2019 EST YOANAN GUERRERO, PT - 05/01/2019 11:50 EST YOANNA GUERRERO, PT - 05/01/2019 11:50 EST Ambulation STG Grid Goal #1 Device : Walker, front wheel Distance : 25' Assist : Assist, minimal Date to Meet : 05/03/2019 EST Goal Status : Goal met Date Met : 04/27/2019 EST YOANNA GUERRERO, PT - 05/01/2019 11:50 EST Assisted Goals Mobility/Bed Mobility LTG PT Grid Goal [...] : Goal met Date Met : 04/30/2019 YOANNA RIDLEY, PT - 05/01/2019 11:50 EST documented in this encounter Plan of Treatment Not on file documented as of this encounter Visit Diagnoses Not on filedocumented in this encounter
--- OUTSIDE RECORDS SUMMARY | 2024-11-10 09:56 | XMS_ITS | Encounter Summary ---
Author Organization [employer] ([place], [place], [place], [place]) Address [address] [place] [address] Care Team Providers Care Air Traffic Instructor Name Role Phone Unavailable Primary Care Provider Unavailabl e Encounter Details Date Type Department Care Team (Late st Contact Info) Description 04/27/2019 Transcribed Document [facility] Radiology 1 [place] [address] ProviderLuciano MD Social History Tobacco Use Types Packs/Day Years Used Date Smoking Tobacco: Never Assessed Comments Unknown Sex and Gender Information Value Date Recorded Sex Assigned at Not on file Legal Sex Female 6:01 PM CDT Gender Identity Not on file Sexual Orientation Not on file documented as of this encounter Miscellaneous Notes * Cerner Conversion Note - [facility] Aiyana ProviderMD - 04/27/2019 6:00 AM EST Chart Check - Review Order Profile Entered On: 04/27/2019 5:06 EST Performed On: 04/27/2019 5:00 EST by Daniela Buckner RN Chart Check Powerplans Initiated/Discontinued as Appropriate : Yes All Active Orders Reviewed : Yes Daniela Buckner RN - 04/27/2019 5:06 EST Electronically signed by Carito yvon Conversion Grinder Set Up Operator Gear Tool Cerner at 08/23/2022 11:19 AM CDT documented in this encounter Plan of Treatment Not on file documented as of this encounter Visit Diagnoses Not on filedocumented in this encounter
--- OUTSIDE RECORDS SUMMARY | 2024-11-10 09:56 | XMS_ITS | Encounter Summary ---
Author Organization [employer] ([place], [place], [place], [place]) Address [address] [place] [address] Care Team Providers Care Pencil Sorter Name Role Phone Unavailable Primary Care Provider Unavailabl e Encounter Details Date Type Department Care Team (Late st Contact Info) Description 04/15/2019 Transcribed Document [facility] Radiology 1 [place] [address] Provider, Luciano Bronson MD Social [...] Conversion Note - [facility] Aiyana ProviderMD - 04/15/2019 10:16 AM [...] Source : Measured Height Entry Format : [place] Height, Feet : 5 ft(Converted to: 152 cm, 60 Inch) Height, Inches : 2 Inch(Converted to: 0 ft 2 Inch, 5.08 cm) Clinical Height : 157.48 cm Weight Source : Standing scale Weight Entry Format : [place] Clinical Dosing Weight : 82.14 kg Weight, Pounds : 180.7 lb Body Surface Area (BSA) : 1.83 m2 Body Mass Index : 33.1 kg/m2 (HI) Perkins Body Weight : 50 kg TIA SHARMA [...] TIA SHARMA RN - 04/15/2019 9:16 EST [place] Suicide Severity Rating Scale (C-SSRS) CSSRS Past [...] #2 Relationship : daughter Primary Language : Telugu Preferred Communication Mode : Verbal Communication Barrier [...] 04/15/2019 9:16 EST Electronically signed by Carito [facility] Conversion Platform Consultant Cerner at 08/23/2022 11:18 AM CDT documented in this encounter Plan of Treatment Not on file documented as of this encounter Visit Diagnoses Not on filedocumented in this encounter
--- OUTSIDE RECORDS SUMMARY | 2024-11-10 09:56 | XMS_ITS | Encounter Summary ---
Author Organization [employer] ([place], [place], [place], [place]) Address [address] [place] [address] Care Team Providers Care Child Protection Specialist Name Role Phone Unavailable Primary Care Provider Unavailabl e Encounter Details Date Type Department Care Team (Late st Contact Info) Description 04/28/2019 Transcribed Document [facility] [address] [facility] [address] [place] [address] Lane Ortiz Jr., MD [facility] [place] [id number] Social History Tobacco Use Types Packs/Day Years [...] for leak. Continue PT. Will need rehab. Dennard goodman. Medications alogliptin, 25 mg= 1 Tab, [...] 100 mg= 2 Cap, Oral, TID Metamucil [place] Smooth Texture Sugar Free, 1 Packet, Oral, [...] Lymph # 1.24 x10(3)/uL 04/28/2019 03:07 EST [place] % 9.2 % (High) 04/28/2019 03:07 EST [place] # 0.90 K/uL 04/28/2019 03:07 EST Eos [...] Appearance CLEAR2 04/28/2019 08:57 EST Urine Specific [place] >1.030 (High) 04/28/2019 08:57 EST Urine pH [...]
--- OUTSIDE RECORDS SUMMARY | 2024-11-10 09:56 | XMS_ITS | Encounter Summary ---
Author Organization [employer] ([place], [place], [place], [place]) Address [address] [place] [address] Care Team Providers Care Child Welfare Counselor Name Role Phone Unavailable Primary Care Provider Unavailabl e Encounter Details Date Type Department Care Team (Late st Contact Info) Description 04/28/2019 Transcribed Document [facility] Radiology 1 [place] [address] Provider, Luciano Bronson MD Social History Tobacco Use Types Packs/Day Years Used Date Smoking Tobacco: Never Assessed Comments Unknown Sex and Gender Information Value Date Recorded Sex Assigned at Not on file Legal Sex Female 6:01 PM CDT Gender Identity Not on file Sexual Orientation Not on file documented as of this encounter Miscellaneous Notes * Cerner Conversion Note - [facility] Aiyana ProviderMD - 04/28/2019 2:50 PM EST UM Authorization Entered On: 04/28/2019 13:50 EST Performed On: 04/28/2019 13:50 EST by Gali Newman Rn-Utilization Review Primary Insurance Authorization Authorization and Policy Numbers : Insurance 1 Health Plan: AETNA MEDICARE REPL Policy Number: [id number] Authorization Number: [id number] Insurance Primary Name : Mariela [id number] Authorization Status-Primary : Awaiting callback Authorization Number-Primary : [id number] Authorized Service Begin Date-Primary : 04/25/2019 EST Historical Authorization Comments-Primary : Comment 1: clinicals faxed via [employer] for cont stay (only 1 day approved) (BULMARO DUONG, RN-Utilization Review 04/26/2019 13:11) Comment 2: per [employer] inpt approved 1 day auth# [id number] (FRANCY MILIAN, Design Maker 04/24/2019 13:26) Gali Newman Rn-Utilization Review - 04/28/2019 13:50 EST documented in this encounter Plan of Treatment Not on file documented as of this encounter Visit Diagnoses Not on filedocumented in this encounter
--- OUTSIDE RECORDS SUMMARY | 2024-11-10 09:56 | XMS_ITS | Encounter Summary ---
Author Organization [employer] ([place], [place], [place], [place]) Address [address] [place] [address] Care Team Providers Care Director Of Public Works Name Role Phone Unavailable Primary Care Provider Unavailabl e Encounter Details Date Type Department Care Team (Late st Contact Info) Description 04/29/2019 Transcribed Document [facility] [address] [facility] [address] [place] [id number] Meliza Downs Jr., MD [facility] [place] [id number] Social History Tobacco Use Types Packs/Day Years [...] for leak. Continue PT. Will need rehab. Agate goodman. Urology to see today. VTE Prophylaxis [...] 100 mg= 2 Cap, Oral, TID Metamucil [place] Smooth Texture Sugar Free, 1 Packet, Oral, [...]
--- OUTSIDE RECORDS SUMMARY | 2024-11-10 09:56 | XMS_ITS | Encounter Summary ---
Author Organization [employer] ([place], [place], [place], [place]) Address [address] [place] [address] Care Team Providers Care Ophthalmology Surgical Technician Name Role Phone Unavailable Primary Care Provider Unavailabl e Encounter Details Date Type Department Care Team (Late st Contact Info) Description 04/28/2019 Transcribed Document [facility] Radiology 1 [place] [address] Provider, Luciano Bronson MD Social History Tobacco Use Types Packs/Day Years Used Date Smoking Tobacco: Never Assessed Comments Unknown Sex and Gender Information Value Date Recorded Sex Assigned at Not on file Legal Sex Female 6:01 PM CDT Gender Identity Not on file Sexual Orientation Not on file documented as of this encounter Miscellaneous Notes * Cerner Conversion Note - [facility] Aiyana ProviderMD - 04/28/2019 2:49 PM EST UM Authorization Entered On: 04/28/2019 13:49 EST Performed On: 04/28/2019 13:49 EST by Gali Newamn Rn-Utilization Review Primary Insurance Authorization Authorization and Policy Numbers : Insurance 1 Health Plan: AETNA MEDICARE REPL Policy Number: [id number] Authorization Number: [id number] Insurance [facility] [id number] Authorization Status-Primary : Awaiting callback Authorization Number-Primary : [id number] Authorized Service Begin Date-Primary : 04/25/2019 EST Historical Authorization Comments-Primary : Comment 1: clinicals faxed via [employer] by [employer] for cont stay (only 1 day approved) (BULMARO DUONG, RN-Utilization Review 04/26/2019 13:11) Comment 2: per [employer] inpt approved 1 day auth# [id number] (FRANCY MILIAN, Delivery Coordinator 04/24/2019 13:26) Gali Newman Rn-Utilization Review - 04/28/2019 13:49 EST Electronically signed by Carito, [facility] Conversion Financial Accounting Analyst Cerner at 08/23/2022 11:19 AM CDT documented in this encounter Plan of Treatment Not on file documented as of this encounter Visit Diagnoses Not on filedocumented in this encounter
--- OUTSIDE RECORDS SUMMARY | 2024-11-10 09:56 | XMS_ITS | Encounter Summary ---
[facility] Address [address] [place] [address] Care Team Providers Care Kapok And Cotton Machine Operator Name Role Phone Danelle Lennon APRN Primary Care Provider [phone] Encounter Details Date Type Department Care Team (Late st Contact Info) Description 06/20/2024 Results Follow-Up [facility] ENDOCRINOLOGY [facility] [address] Ad Mazariegos MD [address] [place] [address] Social History Tobacco Use Types Packs/Day Years [...] documented as of this encounter Care Teams Kapok And Cotton Machine Operator Relationship Specialty Start Date End Date Danelle Lennon APRN [address] [place] [address] [place] [address] PCP - General Internal Medicine 06/18/24 documented as of this encounter
--- OUTSIDE RECORDS SUMMARY | 2024-11-10 09:56 | XMS_ITS | Encounter Summary ---
Author Organization [employer] ([place], [place], [place], [place]) Address [address] [place] [address] Care Team Providers Care Seamer Operator Name Role Phone Unavailable Primary Care Provider Unavailabl e Encounter Details Date Type Department Care Team (Late st Contact Info) Description 04/27/2019 Transcribed Document [facility] Radiology [address] [place] [address] Provider yvon Bronson MD Social History Tobacco Use Types Packs/Day Years Used Date Smoking Tobacco: Never Assessed Comments Unknown Sex and Gender Information Value Date Recorded Sex Assigned at Not on file Legal Sex Female 6:01 PM CDT Gender Identity Not on file Sexual Orientation Not on file documented as of this encounter Miscellaneous Notes * Cerner Conversion Note - [facility] Historical ProviderMD - 04/27/2019 6:00 PM EST Chart Check - Review Order Profile Entered On: 04/27/2019 18:57 EST Performed On: 04/27/2019 17:00 EST by SHAWNA WISE RN Chart Check Powerplans Initiated/Discontinued as Appropriate : Yes All Active Orders Reviewed : Yes SHAWNA WISE RN - 04/27/2019 18:57 EST documented in this encounter Plan of Treatment Not on file documented as of this encounter Visit Diagnoses Not on filedocumented in this encounter
--- OUTSIDE RECORDS SUMMARY | 2024-11-10 09:56 | XMS_ITS | Encounter Summary ---
Author Organization [employer] ([place], [place], [place], [place]) Address [address] [place] [address] Care Team Providers Care Chief Analytics Officer Name Role Phone Unavailable Primary Care Provider Unavailabl e Encounter Details Date Type Department Care Team (Late st Contact Info) Description 04/29/2019 Transcribed Document [facility] Radiology 1 [place] [address] Karina Murphy MD [address] [place] [address] Social History Tobacco Use Types Packs/Day [...] 1955 Associated Diagnoses: None Author: GERALDINE KESSLER, SYSTEM PROGRAMMER-GUNNAR S: Patient found lying in bed. A/O. [...] days per patient request. Chief Complaint: Dr Angel requested medical management post-op; HPI: 63 y/o [...] Last Charted Minimum Maximum Temp 98.8 (APR 29:) 98 (APR 28 14:00) 99.1 (APR 28 [...] mg/dL 04/29/2019 09:47 Glucose Level 131 mg/dL [place] 04/29/2019 09:47 Calcium Level 8.8 mg/dL 04/29/2019 [...] Results (Current Encounter/Past 24 Hours) Bun/Creatinine 22.0 [place] 04/29/2019 09:47 Creatinine Level 0.50 mg/dL LOW 04/29/2019 09:47 eGFR NonAfrican >60 mL/min/1.73m2 04/29/2019 09:47 eGFR >60 mL/min/1.73m2 04/29/2019 09:47 Sodium Level 138 mmol/L 04/29/2019 09:47 Potassium Level 3.3 mmol/L LOW 04/29/2019 09:47 Chloride Level 104 mmol/L 04/29/2019 09:47 Carbon Dioxide Level 31 mmol/L 04/29/2019 09:47 Anion Gap 6 LOW 04/29/2019 09:47 Blood Urea Nitrogen 11 mg/dL 04/29/2019 09:47 Glucose Level 131 mg/dL [place] 04/29/2019 09:47 Calcium Level 8.8 mg/dL 04/29/2019 09:47 Coagulation Results (Current Encounter/Past 24 Hours) No Coagulation Results Found (Past 24 Hours) Creatinine Clearance (Current Encounter/Past 24 Hours) Creatinine Level 0.50 mg/dL LOW 04/29/2019 09:47 Bun/Creatinine 22.0 [place] 04/29/2019 09:47 Estimated Creatinine Clearance 92.27 mL/Min [...] per Dr. Ortiz; family requesting placement in [place] Urology consulted given neurogenic bladder and retention [...]
--- OUTSIDE RECORDS SUMMARY | 2024-11-10 09:56 | XMS_ITS | Encounter Summary ---
Author Organization [employer] ([place], [place], [place], [place]) Address [address] [place] [address] Care Team Providers Care Altitude Chamber Technician Name Role Phone Unavailable Primary Care Provider Unavailabl e Encounter Details Date Type Department Care Team (Late st Contact Info) Description 04/27/2019 Transcribed Document [facility] Radiology 1 [place] [address] ProviderLuciano MD Social History Tobacco [...] Conversion Note - [facility] Historical ProviderMD - 04/27/2019 3:00 AM EST Infantryman Details Entered On: 04/27/2019 0:30 EST Performed [...]
--- OUTSIDE RECORDS SUMMARY | 2024-11-10 09:56 | XMS_ITS | Encounter Summary ---
Author Organization [employer] ([place], [place], [place], [place]) Address [address] [place] [address] Care Team Providers Care Turpentine Distiller Name Role Phone Unavailable Primary Care Provider Unavailabl e Encounter Details Date Type Department Care Team (Late st Contact Info) Description 04/30/2019 Transcribed Document [facility] Neurology - [address] [facility] [address] [place] [address] Meliza Downs Jr., MD [address] [place], [place] [id number] Social History Tobacco Use Types Packs/Day Years [...]
--- OUTSIDE RECORDS SUMMARY | 2024-11-10 09:56 | XMS_ITS | Encounter Summary ---
Author Organization [employer] ([place], [place], [place], [place]) Address [address] [place] [address] Care Team Providers Care Fur Finisher Tailor Name Role Phone Unavailable Primary Care Provider Unavailabl e Encounter Details Date Type Department Care Team (Late st Contact Info) Description 04/30/2019 Transcribed Document [facility] Neurology - [address] [facility] [address] [place] [phone] Lane Ortiz Jr., MD [facility] [place] [id number] Social History Tobacco Use Types Packs/Day Years [...] 100 mg= 2 Cap, Oral, TID Metamucil [place] Smooth Texture Sugar Free, 1 Packet, Oral, [...] Lymph # 1.50 x10(3)/uL 04/29/2019 09:11 EST [place] % 7.0 % 04/30/2019 03:51 EST [place] % 7.8 % 04/29/2019 09:11 EST [place] # 0.59 K/uL 04/30/2019 03:51 EST [place] # 0.71 K/uL 04/29/2019 09:11 EST Eos [...]
--- OUTSIDE RECORDS SUMMARY | 2024-11-10 09:56 | XMS_ITS | Encounter Summary ---
Author Organization [employer] ([place], [place], [place], [place]) Address [address] [place] [address] Care Team Providers Care Tail Worker Name Role Phone Unavailable Primary Care Provider Unavailabl e Encounter Details Date Type Department Care Team (Late st Contact Info) Description 04/30/[address] [facility] Radiology 1 [place] [address] Karina Murphy MD [address] [place] [address] Social History Tobacco Use Types Packs/Day [...] incentive spirometer. says trying to go to [facility] HPI: 63 y/o WF admitted s/p L3-L5 [...] Results (Current Encounter/Past 24 Hours) Bun/Creatinine 32.0 [place] 04/30/2019 05:35 Creatinine Level 0.50 mg/dL LOW 04/30/2019 05:35 eGFR NonAfrican >60 mL/min/1.73m2 04/30/2019 05:35 eGFR >60 mL/min/1.73m2 04/30/2019 05:35 Sodium Level 138 mmol/L 04/30/2019 05:35 Potassium Level 3.4 mmol/L LOW 04/30/2019 05:35 Chloride Level 107 mmol/L 04/30/2019 05:35 Carbon Dioxide Level 27 mmol/L 04/30/2019 05:35 Anion Gap 7 LOW 04/30/2019 05:35 Blood Urea Nitrogen 16 mg/dL 04/30/2019 05:35 Glucose Level 146 mg/dL [place] 04/30/2019 05:35 Calcium Level 8.9 mg/dL 04/30/2019 05:35 Coagulation Results (Current Encounter/Past 24 Hours) No Coagulation Results Found (Past 24 Hours) Creatinine Clearance (Current Encounter/Past 24 Hours) Creatinine Level 0.50 mg/dL LOW 04/30/2019 05:35 Bun/Creatinine 32.0 [place] 04/30/2019 05:35 Estimated Creatinine Clearance 92.27 mL/Min [...]
--- OUTSIDE RECORDS SUMMARY | 2024-11-10 09:56 | XMS_ITS | Encounter Summary ---
Author Organization [employer] ([place], [place], [place], [place]) Address [address] [place] [address] Care Team Providers Care Spot Welder Line Name Role Phone Unavailable Primary Care Provider Unavailabl e Encounter Details Date Type Department Care Team (Late st Contact Info) Description 04/29/2019 Transcribed Document [facility] Radiology 1 [place] [address] Provider, Luciano Bronson MD Social [...] [facility] Aiyana ProviderMD - 04/29/2019 4:24 PM EST On Going Discharge Planning Entered On: 04/29/2019 15:26 EST Performed On: 04/29/2019 15:24 EST by ROMELIA MCADAMS RN-Stock Preparation SupervisorLay Out Maker Progress Note Discharge Arrangements : Patient Post-Acute [...] Patient Meeting Medical Necessity : Yes ROMELIA MCADAMS RN-Stock Preparation Supervisor - 04/29/2019 15:24 EST Narrative Progress Note Narrative Progress Note : Urology consulted for neurogenic bladder. Pt's choices of [facility] and [facility] are not in network with pt's payor source. D/W pt at bedside. She has chose [facility] now. Referral sent via Tc and informed Colleene. Precert intitated for acute. CM will continue to follow. ROMELIA MCADAMS RN-Stock Preparation Supervisor - 04/29/2019 15:24 EST Electronically signed by Carito [facility] Conversion Flatwork Supervisor Cerner at 08/23/2022 11:18 AM CDT documented in this encounter Plan of Treatment Not on file documented as of this encounter Visit Diagnoses Not on filedocumented in this encounter
--- OUTSIDE RECORDS SUMMARY | 2024-11-10 09:56 | XMS_ITS | Encounter Summary ---
Author Organization [employer] ([place], [place], [place], [place]) Address [address] [place] [address] Care Team Providers Care Soap Tender Name Role Phone Unavailable Primary Care Provider Unavailabl e Encounter Details Date Type Department Care Team (Late st Contact Info) Description 04/29/2019 Transcribed Document [facility] Radiology [address] [place] [address] Provider, Luciano Bronson MD Social [...] [facility] ProviderMD - 04/29/2019 10:39 AM [...] Physician - ALVERTO DIMAS MD-INT - medical rn pain management Physician - MACK FAYE MD Referring Physician [...] 100 mg= 2 Cap, Oral, TID Metamucil [place] Smooth Texture Sugar Free, 1 Packet, Oral, [...] POC2 159 mg/dL (High) 04/28/2019 11:42 EST Electronically signed by Carito, [facility] Conversion Healthcare Interpreter Cerner at 08/23/2022 11:19 AM CDT documented in this encounter Plan of Treatment Not on file documented as of this encounter Visit Diagnoses Not on filedocumented in this encounter
--- OUTSIDE RECORDS SUMMARY | 2024-11-10 09:56 | XMS_ITS | Encounter Summary ---
Author Organization [employer] ([place], [place], [place], [place]) Address [address] [place] [address] Care Team Providers Care Video Production Coordinator Name Role Phone Unavailable Primary Care Provider Unavailabl e Encounter Details Date Type Department Care Team (Late st Contact Info) Description 04/28/2019 Transcribed Document [facility] Radiology [address] [place] [address] Provider, Luciano Bronson MD Social History Tobacco Use Types Packs/Day Years Used Date Smoking Tobacco: Never Assessed Comments Unknown Sex and Gender Information Value Date Recorded Sex Assigned at Not on file Legal Sex Female 6:01 PM CDT Gender Identity Not on file Sexual Orientation Not on file documented as of this encounter Miscellaneous Notes * Cerner Conversion Note - [facility] Aiyana ProviderMD - 04/28/2019 6:13 PM EST Initial Discharge Planning Entered On: 04/28/2019 17:18 EST Performed On: 04/28/2019 17:13 EST by ROMELIA MCADAMS RN-Tarring Machine Operator Initial Assessment I Previously Documented Living Environment : No qualifying data available. Living Situation : Home Patient Lives With : Spouse Is the Patient a Caregiver at Home? : No Emergency Contact #1 : Michelle Gonzalez Emergency Contact #1 cell Emergency Contact #1 Relationship : Emergency Contact #2 : Kandi Javed Emergency Contact #2 cell Emergency Contact #2 Relationship : daughter ROMELIA MCADAMS, RN-Tarring Machine Operator - 04/28/2019 17:13 EST Initial Assessment II Sensory and Motor Deficits : None ROMELIA MCADAMS RN-Tarring Machine Operator - 04/28/2019 17:13 EST Discharge Needs I Anticipated Discharge Date : 04/30/2019 EST Anticipated Discharge To, CM : [facility] facility Current Home Treatment/Equipment : Current Home Treatment/Equipment No qualifying data available. Documentation Status Complete : Yes ROMELIA MCADAMS RN-Tarring Machine Operator - 04/28/2019 17:13 EST Discharge Needs II Professional Skilled Services : Professional Skilled Services No qualifying data available. 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 CBR except when working with PT/OT. Met with pt, spouse, and daughter at bedside during rounds to discuss DCP. They request rehab at [facility] as pt's sister works there. CM also gave list of SNF in [facility] and [facility] with quality and resource information in case no bed or not in contract/network with pt's payor source. Referral sent to [facility] via Tc and left message with liaison . NSY states pt will not be ready for dc for a couple more days. CM will follow. ROMELIA MCADAMS RN-Tarring Machine Operator - 04/28/2019 17:13 EST documented in this encounter Plan of Treatment Not on file documented as of this encounter Visit Diagnoses Not on filedocumented in this encounter
--- OUTSIDE RECORDS SUMMARY | 2024-11-10 09:56 | XMS_ITS | Encounter Summary ---
Author Organization [employer] ([place], [place], [place], [place]) Address [address] [place] [address] Care Team Providers Care Cna Gna Name Role Phone Unavailable Primary Care Provider Unavailabl e Encounter Details Date Type Department Care Team (Late st Contact Info) Description 05/02/2019 Transcribed Document [facility] Radiology [address] [place] [address] ProviderLuciano MD Social History Tobacco Use Types Packs/Day Years Used Date Smoking Tobacco: Never Assessed Comments Unknown Sex and Gender Information Value Date Recorded Sex Assigned at Not on file Legal Sex Female 6:01 PM CDT Gender Identity Not on file Sexual Orientation Not on file documented as of this encounter Miscellaneous Notes * Cerner Conversion Note - [facility] Aiyana ProviderMD - 05/02/2019 1:41 PM EST Stroke/Warfarin Instructions Entered On: 05/02/2019 12:41 EST Performed On: 05/02/2019 12:41 EST by Ericka Wharton RN Stroke/Warfarin Instructions Stroke/TIA Discharge Ins : N/A Warfarin Discharge Ins : N/A Ericka Wharton RN - 05/02/2019 12:41 EST Electronically signed by Carito [facility] Conversion Header Dock Cerner at 08/23/2022 11:19 AM CDT documented in this encounter Plan of Treatment Not on file documented as of this encounter Visit Diagnoses Not on filedocumented in this encounter
--- OUTSIDE RECORDS SUMMARY | 2024-11-10 09:56 | XMS_ITS | Encounter Summary ---
Author Organization [employer] ([place], [place], [place], [place]) Address [address] [place] [address] Care Team Providers Care Hospice Bereavement Coordinator Name Role Phone Unavailable Primary Care Provider Unavailabl e Encounter Details Date Type Department Care Team (Late st Contact Info) Description 04/28/2019 Transcribed Document [facility] Neurology - [address] [facility] [address] [place] [address] Meliza Downs Jr., MD [address] [id number] Social History Tobacco Use Types Packs/Day Years [...] for a [place]. [place] i dw case managemenrt. documented in this encounter Plan of Treatment Not on file documented as of this encounter Visit Diagnoses Not on filedocumented in this encounter
--- OUTSIDE RECORDS SUMMARY | 2024-11-10 09:56 | XMS_ITS | Encounter Summary ---
Author Organization [employer] ([place], [place], [place], [place]) Address [address] [place] [address] Care Team Providers Care Antisqueak Applier Name Role Phone Unavailable Primary Care Provider Unavailabl e Encounter Details Date Type Department Care Team (Late st Contact Info) Description 04/26/2019 Transcribed Document [facility] Radiology [address] [place] [address] Provider, Luciano Bronson MD Social History Tobacco Use Types Packs/Day Years Used Date Smoking Tobacco: Never Assessed Comments Unknown Sex and Gender Information Value Date Recorded Sex Assigned at Not on file Legal Sex Female 6:01 PM CDT Gender Identity Not on file Sexual Orientation Not on file documented as of this encounter Miscellaneous Notes * Cerner Conversion Note - [facility] Aiyana ProviderMD - 04/26/2019 2:11 PM EST UM Authorization Entered On: 04/26/2019 13:11 EST Performed On: 04/26/2019 13:11 EST by BULMARO DUONG RN-Utilization Review Primary Insurance Authorization Authorization and Policy Numbers : Insurance 1 Health Plan: [employer] MED[employer]ARE REPL Policy Number: [id number] Authorization Number: [id number] Insurance Primary Name : Mariela [id number] Authorization Status-Primary : Awaiting callback Authorization Number-Primary : [id number] Authorized Service Begin Date-Primary : 04/25/2019 EST Authorization Comments-Primary : clinicals faxed via [employer] for cont stay (only 1 day approved) Historical Authorization Comments-Primary : Comment 1: per STAR inpt approved 1 day auth# [id number] (FRANCY MILIAN, Toaster Operator 04/24/2019 13:26) BULMARO DUONG, RN-Utilization Review - 04/26/2019 13:11 EST Electronically signed by Carito, [facility] Conversion Surgical Services Manager Cerner at 08/23/2022 11:19 AM CDT documented in this encounter Plan of Treatment Not on file documented as of this encounter Visit Diagnoses Not on filedocumented in this encounter
--- OUTSIDE RECORDS SUMMARY | 2024-11-10 09:56 | XMS_ITS | Encounter Summary ---
Author Organization [employer] ([place], [place], [place], [place]) Address [address] [place] [address] Care Team Providers Care Project Construction Assistant Manager Name Role Phone Unavailable Primary Care Provider Unavailabl e Encounter Details Date Type Department Care Team (Late st Contact Info) Description 04/26/2019 Transcribed Document [facility] Radiology [address] [place] [address] ProviderLuciano MD Social History Tobacco [...] [facility] Aiyana ProviderMD - 04/26/2019 3:00 AM EST Water Softener Servicer And Installer Details Entered On: 04/26/2019 0:18 EST Performed [...]
--- OUTSIDE RECORDS SUMMARY | 2024-11-10 09:56 | XMS_ITS | Encounter Summary ---
Author Organization [employer] ([place], [place], [place], [place]) Address [address] [place] [address] Care Team Providers Care Broth Mixer Name Role Phone Unavailable Primary Care Provider Unavailabl e Encounter Details Date Type Department Care Team (Late st Contact Info) Description 04/26/2019 Transcribed Document [facility] Radiology [address] [place] [address] Provider, Luciano Bronson MD Social History Tobacco Use Types Packs/Day Years Used Date Smoking Tobacco: Never Assessed Comments Unknown Sex and Gender Information Value Date Recorded Sex Assigned at Not on file Legal Sex Female 6:01 PM CDT Gender Identity Not on file Sexual Orientation Not on file documented as of this encounter Miscellaneous Notes * Cerner Conversion Note - [facility] Aiyana ProviderMD - 04/26/2019 3:20 [...] Fall prevention measures, Spinal Precautions JAUN MCGRAW OTR/Ofelia - 05/02/2019 15:28 EST General Status Patient Received Status : Supine in bed Treatment Start Time : 05/02/2019 13:46 EST Patient Left Status : Supine in bed, RN/PCT informed, All needs met and within reach RN/PCT Informed Comment : IAN bragg Treatment End Time : 05/02/2019 14:11 EST Treatment Time : 25 Minute(s) JAUN MCGRAW OTR/L - 05/02/2019 15:28 EST Functional Mobility Mobility Grid Bed Roll Left : Supervision/set-up Bed Roll Right : Supervision/set-up Bed Scooting : Supervision/set-up Supine to Sit : Supervision/set-up Sit to Supine : Supervision/set-up JAUN MCGRAW OTR/L - 05/02/2019 15:28 EST Plan of Care, OT OT Tx Plan/Goals Established w Patient : Yes LUCIEN JAUN, OTR/L - 05/02/2019 15:28 EST Half-Way Goals, OT Grooming LTG Grid Goal #1 Activity : Grooming Assist : Independent, modified Date to Meet : 05/10/2019 EST Goal Status : Goal met Date Met : 05/02/2019 EST Comment : sitting EOB JAUN MCGRAW OTR/L - 05/02/2019 15:28 EST Dressing, Lower Body LTG Grid Goal #1 Activity : Dressing, Lower Body Assist : Assist, moderate Date to Meet : 05/10/2019 EST Goal Status : Goal met Date Met : 05/02/2019 EST JAUN MCGRAW OTR/L - 05/02/2019 15:28 EST Toileting LTG Grid Goal #1 Activity : Toileting Assist : Assist, moderate Date to Meet : 05/10/2019 EST Goal Status : Initial goal JAUN MCGRAW OTR/L - 05/02/2019 15:28 EST Toilet Transfer LTG Grid Goal #1 Activity : Toilet Transfer, Ambulatory Assist : Assist, moderate Date to Meet : 05/10/2019 EST Goal Status : Goal met Date Met : 05/02/2019 EST JAUN MCGRAW OTR/L - 05/02/2019 15:28 EST Bed Mobility/ Bed [...] : pt to EOB supervision with leg electrician supervisor airplane. Sat unsupported. Given AE for LB dressing educated and demonstrated understanding. Pt educated on bathroom transfers, shower transfers, car transfers, toileting hygiene. Given tongs for toileting. Dicussed use of home bidet. Pt supervision to supine with leg electrician supervisor airplane. Assessment : pt has good understanding of transfer safety and education given. to dc home Needs HH OT. Plan for Treatment : see poc JAUN MCGRAW OTR/Ofelia - 05/02/2019 15:28 EST Pain Assessment Pain Scaled Used : 0-10 Pain scale Pain Score During-Intervention : 0 JAUN MCGRAW OTR/Ofelia - 05/02/2019 15:28 EST Image 1 - [...] Ea 15 Min : 2 JAUN MCGRAW OTR/Ofelia - 05/02/2019 15:28 EST documented in this encounter Plan of Treatment Not on file documented as of this encounter Visit Diagnoses Not on filedocumented in this encounter
--- OUTSIDE RECORDS SUMMARY | 2024-11-10 09:56 | XMS_ITS | Referral Summary ---
Author Organization [employer] [facility] ([place], [place], [place], [place]) Address [address] [place] [address] Care Team Providers Care Barber Stylist Name Role Phone Unavailable Primary Care Provider [...]
--- OUTSIDE RECORDS SUMMARY | 2024-11-10 09:56 | XMS_ITS | Encounter Summary ---
[facility] Address [address] [place] [address] Care Team Providers Care Motor Analyst Name Role Phone Danelle Lennon APRN Primary Care Provider + [phone] Reason for Visit * Reason Comments Med Refill Encounter Details Date Type Department Care Team (Late st Contact Info) Description 02/17/2023 Refill [facility]ILY MEDICINE [address] [place] [address] Alex Davis MD [address] [place] [address] Postlaminectomy syndrome of lumbar region; [...] myelopathy documented in this encounter Care Teams Motor Analyst Relationship Specialty Start Date End Date Danelle Lennon APRN [address] [place] [address] [place] [address] PCP - General Internal Medicine 06/18/24 documented as of this encounter
--- OUTSIDE RECORDS SUMMARY | 2024-11-10 09:57 | XMS_ITS | Encounter Summary ---
Author Organization [employer] ([place], [place], [place], [place]) Address [address] [place] [address] Care Team Providers Care Digital Advisor Name Role Phone Unavailable Primary Care Provider Unavailabl e Encounter Details Date Type Department Care Team (Late st Contact Info) Description 04/23/2019 Transcribed Document [facility] Radiology [address] [place] [address] ProviderLuciano MD Social History Tobacco Use Types Packs/Day Years Used Date Smoking Tobacco: Never Assessed Comments Unknown Sex and Gender Information Value Date Recorded Sex Assigned at Not on file Legal Sex Female 6:01 PM CDT Gender Identity Not on file Sexual Orientation Not on file documented as of this encounter Miscellaneous Notes * Cerner Conversion Note - Luciano Bronson ProviderMD - 04/23/2019 5:07 PM EST Patient Education [...] activities are safe for you. ??? Take oyug-dro-suvsvnr and prescription medicines only as told by [...] 06/25/2001 Document Revised: 11/02/2017 Document Reviewed: 11/02/2017 [employer] Interactive Patient Education ? 2019 [place]. Magnetic Resonance Imaging Magnetic resonance imaging (MRI) [...] including vitamins, herbs, eye drops, creams, and uhgt-aqu-fgeflum medicines. What are the risks? Generally, MRI [...] 05/14/2014 Elsevier Interactive Patient Education ? 2017 [employer] Electronically signed by Luciano Arzate Conversion Delinquent Notice Machine Operator Cerner at 08/23/2022 11:19 AM CDT documented in this encounter Plan of Treatment Not on file documented as of this encounter Visit Diagnoses Not on filedocumented in this encounter
--- OUTSIDE RECORDS SUMMARY | 2024-11-10 09:57 | XMS_ITS | Encounter Summary ---
Author Organization [employer] ([place], [place], [place], [place]) Address [address] [place] [address] Care Team Providers Care Podiatric Aide Name Role Phone Unavailable Primary Care Provider Unavailabl e Encounter Details Date Type Department Care Team (Late st Contact Info) Description 05/01/2019 Transcribed Document [facility] Radiology [address] [place] [address] ProviderLuciano MD Social History Tobacco [...] - [facility] Aiyana ProviderMD - 05/01/2019 6:00 PM EST Chart Check - Review Order Profile Entered On: 05/01/2019 18:11 EST Performed On: 05/01/2019 17:00 EST by Nicolasa Abernathy RN Chart Check Powerplans Initiated/Discontinued as Appropriate : Yes All Active Orders Reviewed : Yes Nicolasa Abernathy RN - 05/01/2019 18:11 EST Electronically signed by Carito [facility] Conversion Asphalt Paving Superintendent Cerner at 08/23/2022 11:19 AM CDT documented in this encounter Plan of Treatment Not on file documented as of this encounter Visit Diagnoses Not on filedocumented in this encounter
--- OUTSIDE RECORDS SUMMARY | 2024-11-10 09:57 | XMS_ITS | Encounter Summary ---
Author Organization [employer] ([place], [place], [place], [place]) Address [address] [place] [address] Care Team Providers Care Biostatistics Manager Name Role Phone Unavailable Primary Care Provider Unavailabl e Encounter Details Date Type Department Care Team (Late st Contact Info) Description 04/25/[address] [facility] Radiology [address] [place] [address] Provider, Luciano Bronson MD Social History Tobacco Use Types Packs/Day Years Used Date Smoking Tobacco: Never Assessed Comments Unknown Sex and Gender Information Value Date Recorded Sex Assigned at Not on file Legal Sex Female 6:01 PM CDT Gender Identity Not on file Sexual Orientation Not on file documented as of this encounter Miscellaneous Notes * Cerner Conversion Note - [facility] Aiyana ProviderMD - 04/25/2019 6:44 PM EST [...] LOF for IADLs, OT : Independent FLORES JONES OTR/Ofelia - 04/26/2019 13:53 EST Upper Extremity [...] Supine : Rehab Moderate assistance FLORES JONES OTR/L - 04/26/2019 13:53 EST Cognition Assessment, OT Orientation : Oriented x 4 Cognition Assessment, OT : Intact Comprehension Assessment, OT : Intact FLORES JONES OTR/L - 04/26/2019 13:53 EST Indication Assessment, OT Occupational Therapy Indicated : Yes Problem List, OT : Impaired, bed mobility, Impaired, activities daily living, Impaired, endurance tolerance, Impaired functional mobility, Impaired, sitting balance, Impaired, standing balance, Impaired, transfers, Pain limiting function Potential Barriers, OT : Acuity of illness, Pain FLORES JONES OTR/L - 04/26/2019 13:53 EST Plan of Care, [...] FLORES JONES OTR/Ofelia - 04/26/2019 13:53 EST Electrician Technician Goals, OT Grooming LTG Grid Goal #1 Activity : Grooming Assist : Independent, modified Date to Meet : 05/10/2019 EST Goal Status : Initial goal FLORES JONES OTR/L - 04/26/2019 13:53 EST Dressing, Lower Body LTG Grid Goal #1 Activity : Dressing, Lower Body Assist : Assist, moderate Date to Meet : 05/10/2019 EST Goal Status : Initial goal FLORES JONES OTR/L - 04/26/2019 13:53 EST Toileting LTG Grid Goal #1 Activity : Toileting Assist : Assist, moderate Date to Meet : 05/10/2019 EST Goal Status : Initial goal FLORES JONES OTR/L - 04/26/2019 13:53 EST Toilet Transfer LTG Grid Goal #1 Activity : Toilet Transfer, Ambulatory Assist : Assist, moderate Date to Meet : 05/10/2019 EST Goal Status : Initial goal FLORES JONES OTR/L - 04/26/2019 13:53 EST Bed Mobility/ Bed Transfer LTG Grid Goal #1 Activity : Bed Mobility/Bed Transfer Assist : Assist, minimal Date to Meet : 05/10/2019 EST Goal Status : Initial goal FLORES JONES OTR/Ofelia - 04/26/2019 13:53 EST Treatment Note Subjective [...] pts POC per pt tolerance. FLORES JONES OTR/Ofelia - 04/26/2019 13:53 EST Pain Assessment Pain Scaled Used : 0-10 Pain scale Pain Score Pre-Intervention : 8 Pain Score During-Intervention : 8 Pain Score Post-Intervention. : 8 Location : Back, Legs, bilateral FLORES JONES OTR/Ofelia - 04/26/2019 13:53 EST Image 1 - Images currently included in the form version of this document have not been included in the text rendition version of the form. Anticipated Discharge Needs, OT/PT Anticipated Discharge to : Unable to assess at this time FLORES JONES OTR/Ofelia - 04/26/2019 13:53 EST [place] OT Charges OT Eval Moderate Complexity : 1 FLORES JONES OTR/Ofelia - 04/26/2019 13:53 EST Electronically signed by Carito [facility] Conversion Nail Specialist Cerner at 08/23/2022 11:19 AM CDT documented in this encounter Plan of Treatment Not on file documented as of this encounter Visit Diagnoses Not on filedocumented in this encounter
--- OUTSIDE RECORDS SUMMARY | 2024-11-10 09:57 | XMS_ITS | Encounter Summary ---
Author Organization [employer] ([place], [place], [place], [place]) Address [address] [place] [address] Care Team Providers Care Marine Design Engineer Name Role Phone Unavailable Primary Care Provider Unavailabl e Encounter Details Date Type Department Care Team (Late st Contact Info) Description 04/25/2019 Transcribed Document [facility] Radiology [address] [place] [address] Provider, Luciano Bronson MD Social History Tobacco Use Types Packs/Day Years Used Date Smoking Tobacco: Never Assessed Comments Unknown Sex and Gender Information Value Date Recorded Sex Assigned at Not on file Legal Sex Female 6:01 PM CDT Gender Identity Not on file Sexual Orientation Not on file documented as of this encounter Miscellaneous Notes * Cerner Conversion Note - [facility] Aiyana ProviderMD - 04/25/2019 [...] AGUILA DANIELS, PT - 04/26/2019 13:19 EST [facility] Goals Mobility/Bed Mobility LTG PT Grid Goal #1 Goal #2 Activity : Supine to sit Sit to stand Assist : Independent, modified Supervision or set-up Equipment : Rail, bed Walker, front wheel Date to Meet : 05/10/2019 EST 05/10/2019 EST Goal Status : Intial Goal Intial Goal AGUILA DANIELS, PT - 04/26/2019 13:19 EST AGUILA DANIELS, PT - 04/26/2019 13:19 EST Ambulation LTG Grid Goal #1 Device : Walker, front wheel Distance : 200' Assist : Supervision or set-up Date to Meet : 05/10/2019 EST Goal Status : Intial Goal JEREMIAH AGUILA, PT - 04/26/2019 13:19 EST Treatment Note [...] AGUILA DANIELS, PT - 04/26/2019 13:19 EST [place] PT Charges PT Eval Low Complexity : 1 AGUILA DANIELS, PT - 04/26/2019 13:19 EST Electronically signed by Carito [facility] Conversion Proposal Development Manager Cerner at 08/23/2022 11:19 AM CDT documented in this encounter Plan of Treatment Not on file documented as of this encounter Visit Diagnoses Not on filedocumented in this encounter
--- OUTSIDE RECORDS SUMMARY | 2024-11-10 09:57 | XMS_ITS | Encounter Summary ---
Author Organization [employer] ([place], [place], [place], [place]) Address [address] [place] [address] Care Team Providers Care Solar Process Engineer Name Role Phone Unavailable Primary Care Provider Unavailabl e Encounter Details Date Type Department Care Team (Late st Contact Info) Description 05/02/2019 Transcribed Document [facility] Neurology - [address] [facility] [address] [place] [address] Meliza Downs Jr., MD [address] [place], [place] [id number] Social History Tobacco Use Types Packs/Day Years [...]
--- OUTSIDE RECORDS SUMMARY | 2024-11-10 09:57 | XMS_ITS | Encounter Summary ---
[facility] Organization [facility] Address [address] [place] [address] Care Team Providers Care Brilliandeer Looper Name Role Phone Danelle Lennon APRN Primary Care Provider [phone] Reason for Visit * Reason Onset Date Comments Shortness of Breath 12/12/2016 Encounter Details Date Type Department Care Team ([facility] st Contact Info) Description 12/12/2016 Telephone [facility] INTERNAL MEDICINE [address] [place] [address] Madelaine Norman, CREATIVE ARTS MUSIC THERAPIST [address] [id number] Shortness of Breath Social History Tobacco Use [...] documented as of this encounter Care Teams Brilliandeer Looper Relationship Specialty Start Date End Date Danelle Lennon APRN [address] [place] [address] PCP - General Internal Medicine 06/18/24 documented as of this encounter
--- OUTSIDE RECORDS SUMMARY | 2024-11-10 09:57 | XMS_ITS | Encounter Summary ---
Author Organization [employer] ([place], [place], [place], [place]) Address [address] [place] [address] Care Team Providers Care Spice Mixer Name Role Phone Unavailable Primary Care Provider Unavailabl e Encounter Details Date Type Department Care Team (Late st Contact Info) Description 04/23/[address] [facility] Radiology [address] [place] [address] Provider, Luciano Bronson MD Social [...] [facility] Aiyana ProviderMD - 04/23/2019 7:03 PM [...] LUCIEN PUGH RN - 04/23/2019 18:03 EST Electronically signed by Carito [facility] Conversion Health Technician Cerner at 08/23/2022 11:19 AM CDT documented in this encounter Plan of Treatment Not on file documented as of this encounter Visit Diagnoses Not on filedocumented in this encounter
--- OUTSIDE RECORDS SUMMARY | 2024-11-10 09:57 | XMS_ITS | Encounter Summary ---
[facility] Address [address] [place] [address] Care Team Providers Care Chief Nurse Executive Name Role Phone Danelle Lennon APRN Primary Care Provider + [phone] Reason for Visit * Reason Comments Med Refill Encounter Details Date Type Department Care Team (Late st Contact Info) Description 10/08/2023 Refill [facility] [address] [place] [address] Alex Davis MD [address] [place] [address] Anxiety and depression; Postlaminectomy syndrome [...] documented as of this encounter Care Teams Chief Nurse Executive Relationship Specialty Start Date End Date Danelle Lennon APRN [address] [place], [place] [id number] PCP - General Internal Medicine 06/18/24 documented as of this encounter
--- OUTSIDE RECORDS SUMMARY | 2024-11-10 09:57 | XMS_ITS | Encounter Summary ---
Author Organization [employer] ([place], [place], [place], [place]) Address [address] [place] [address] Care Team Providers Care Hospital Mortician Name Role Phone Unavailable Primary Care Provider Unavailabl e Encounter Details Date Type Department Care Team (Late st Contact Info) Description 04/26/2019 Transcribed Document [facility] Radiology [address] [place] [address] Provider, Luciano Bronson MD Social [...] Conversion Note - [facility] Aiyana Provider, - 04/26/2019 2:31 PM EST [...] YOANNA GUERRERO, PT - 04/28/2019 14:54 EST Starting Sheet Tank Operator Goals Mobility/Bed Mobility LTG PT Grid Goal [...] YOANNA GUERRERO PT - 04/28/2019 14:54 EST Electronically signed by Carito [facility] Conversion Metropolitan Editor Cerner at 08/23/2022 11:19 AM CDT documented in this encounter Plan of Treatment Not on file documented as of this encounter Visit Diagnoses Not on filedocumented in this encounter
--- OUTSIDE RECORDS SUMMARY | 2024-11-10 09:57 | XMS_ITS | Encounter Summary ---
Author Organization [employer] ([place], [place], [place], [place]) Address [address] [place] [address] Care Team Providers Care Condenser Operator Name Role Phone Unavailable Primary Care Provider Unavailabl e Encounter Details Date Type Department Care Team (Late st Contact Info) Description 04/25/2019 Transcribed Document [facility] [address] [place] [address] ProviderLuciano MD Social History Tobacco [...] - [facility] Aiyana ProviderMD - 04/25/2019 6:44 PM EST [...]
--- OUTSIDE RECORDS SUMMARY | 2024-11-10 09:57 | XMS_ITS | Encounter Summary ---
Author Organization [employer] ([place], [place], [place], [place]) Address [address] [place] [address] Care Team Providers Care Aerosol Supervisor Name Role Phone Unavailable Primary Care Provider Unavailabl e Encounter Details Date Type Department Care Team (Late st Contact Info) Description 04/25/2019 Transcribed Document [facility] [address] [facility] [address] [place] [id number] [address] Ortiz Jr., MD [address] [id number] Social History Tobacco Use Types Packs/Day Years Used Date Smoking Tobacco: Never Assessed Comments Unknown Sex and Gender Information Value Date Recorded Sex Assigned at Not on file Legal Sex Female 6:01 PM CDT Gender Identity Not on file Sexual Orientation Not on file documented as of this encounter Miscellaneous Notes * Cerner Conversion Note - Lane Ortiz Jr., MD - 04/25/2019 6:59 PM EST DATE OF PROCEDURE: 04/25/2019 SURGEON: Lane Ortiz Jr, MD PREOPERATIVE DIAGNOSIS: Cauda equina tumor. POSTOPERATIVE DIAGNOSIS: Cauda equina tumor. PROCEDURE PERFORMED: L3-L5 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 FLIGHT TEST ENGINEER: Melanie Emmanuel PA-C. ANESTHESIA: Total IV anesthesia. BLOOD LOSS: Less than 400 mL. COMPLICATIONS: None. 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 COMPLICATIONS: None. DRAINS: None. CONDITION: Stable to PACU. INDICATIONS FOR PROCEDURE: Ms. Gonzalez is 63 years old. I saw her in the office with severe back and leg pain. She is status post lumbar decompression surgery of some sort in the past. She had a spinal cord stimulator. As the symptoms improved, the stimulator was removed. An MRI was obtained, which showed an extreme enlargement of the cauda equina tumor. I met with her in the office. I went over indications, risks, and benefits and explained this with her in detail. We talked about the inability to resect the tumor. We talked about temporary or permanent numbness, weakness, paralysis, bowel and bladder dysfunction, spinal fluid leakage, need for additional surgery, need for additional treatment. I met with her and her and 2 children prior to surgery today as they were not in the office. I went over all these things again with them prior to the operation. DESCRIPTION OF PROCEDURE: After informed consent was obtained, the patient was brought to the operating room. She was intubated per usual fashion. Total IV anesthesia was induced. She was turned prone on the operating table with torso resting on laminectomy rolls. The arms were abducted and flexed. All pressure points were padded and protected. She was secured to the bed with straps per routine. The back was marked out in the midline. This was above most of her prior incision, which was about an inch in the lower lumbar area in the midline. We planned four 5-inch incisions spanning from L3 down to the sacrum. The back was prepped and draped in the usual fashion. Prophylactic antibiotics were given. The skin incision was opened with a scalpel. Bovie cautery was used to dissect the fascia. Subperiosteal dissection was performed exposing the L3, the L4, the L5, and the superior S1 lamina. There was a hemilaminectomy on the left at L5-S1. Once I confirmed we were at the correct levels, we removed the spinous processes and then a matchstick drill bit was used to thin out the erasto. We completed laminectomy with Kerrison punches starting at L3 and then L4 and then L5. At L5 when I was completing the laminectomy, I noted that the underlying dura was essentially gone, almost paper thin. It was mostly arachnoid. It was not due to durotomy during the opening, but the dura had an unusually thin appearance. I thought this was either from her prior lumbar decompression surgery or possibly from the fact that the CSF in the lumbosacral area was entrapped and potentially, the pressure had thinned out the dura dorsally. Regardless, I came around and found the dural edges as best as I could and tacked them up with Nurolon sutures. I then opened the midline. I then brought in the ultrasound to confirm the top of the tumor and the bottom of the tumor and I opened the dura in the midline with a 15 blade scalpel. Nurolon sutures were used to tack up the dura. The microscope was brought in. Most of the nerve roots were pushed dorsally. They were very adherent, especially in the mid portion of the tumor around L4 and L5. They were crossing each other. The arachnoid was completely scarred to the nerve roots and the nerve roots in place scarred the tumor capsule. I worked up at the upper third of the tumor and dorsally could find a corridor between the nerve roots. To my pleasant surprise, there was a nice capsule. The tumor also looked like a nerve sheath tumor. I incised the capsule and sent biopsies and this was what the frozen suggested. The rest of the surgery was performed in a very meticulous fashion. It was a very slow process, but we internally debulked the tumor from the superior pole and then worked inferiorly stripping it away laterally from the nerve roots and the edge of the spinal canal until I came to the bottom of the tumor. I did not cross or divide any nerve roots as far as I could tell. The nerve roots were very congested, but their continuity seemed to be complete. Probably during the first 20 minutes of tumor resection, we lost the motor evoked potential waveforms in the left foot and gastroc. The gastroc and foot then came back later through the case. The foot dropped down again and did not return. The gastroc returned, but was weaker than its preoperative amplitude. Left-sided anal sphincter motor evoked potential waveforms were also waxing and waning, but intact at the end of the surgery. During the tumor resection and during obvious portions where we had retracted the nerve roots, the EMG would fire intermittently, but nothing that was terribly alarming at the end of the case. Again, all the waveforms were good with the exception of the absent left foot and diminished left gastroc. We closed the dura after I thought we obtained a gross total resection. I did not appreciate any residual tumor. All the nerve roots looked relaxed. They were scarred to the dorsal lateral dura and I was able to perform a neurolysis and pushed them down into the central canal. This made it easy to close the superior half of the durotomy line. We closed this with a running Nurolon suture. The inferior half of the dura was so thinned out from where the tumor had actually eroded through the dorsal aspect of the dura. This was around L4-L5. I forgot to mention this earlier, but when I did the laminectomy at L4, after taking couple of bites with the Kerrison, we were looking at nerve roots because the dura had been eroded through by the tumor from the pressure of the tumor, but it was this area, the lower half of the dural closure where I had sewn a Durepair graft with 4-0 Nurolon sutures. We made the closure watertight as possible. Valsalva showed no major areas of CSF leakage. The couple seal was used to line the epidural space to make sure there was no bleeding and washed away. Once the epidural hemostasis was confirmed, we used DuraSeal and layered it over the dural closure. The Valsalva then showed no CSF leakage. Meticulous hemostasis was obtained. There was no bleeding in the soft tissue compartment. Muscle, fascia, Ladarius layer, and dermis were closed with interrupted Vicryl sutures and skin was closed with running 3-0 nylon. Dressing was applied. The patient went to the recovery room in stable condition. Melanie Emmanuel PA-C, assisted through the entire operation with tasks such as suctioning, soft tissue retraction, laminectomy, dural opening, tumor resection, nerve root retraction, dural closure, and wound closure. /[id number] Lane Ortiz Jr, MD RDO/AQ / RDO / MODL /[id number] documented in this encounter Plan of Treatment Not on file documented as of this encounter Visit Diagnoses Not on filedocumented in this encounter
--- OUTSIDE RECORDS SUMMARY | 2024-11-10 09:57 | XMS_ITS | Encounter Summary ---
Author Organization [employer] ([place], [place], [place], [place]) Address [address] [place] [address] Care Team Providers Care Councilman Name Role Phone Unavailable Primary Care Provider Unavailabl e Encounter Details Date Type Department Care Team (Late st Contact Info) Description 05/02/2019 Transcribed Document [facility] Radiology [address] [place] [address] Provider, Luciano Bronson MD Social [...] * Cerner Conversion Note - [facility] Aiyana ProviderMD - 05/02/2019 1:40 PM EST On Going Discharge Planning Entered On: 05/02/2019 12:41 EST Performed On: 05/02/2019 12:40 EST by ROMELIA MCADAMS RN-Broadband TechnicianObserver Helper Progress Note Discharge Arrangements : Patient Post-Acute [...] to Post Acute Providers : Yes ROMELIA MCADAMS, RN-Broadband Technician - 05/02/2019 12:40 EST documented in this encounter Plan of Treatment Not on file documented as of this encounter Visit Diagnoses Not on filedocumented in this encounter
--- OUTSIDE RECORDS SUMMARY | 2024-11-10 09:57 | XMS_ITS | Clinical Summary ---
Author Organization [facility] Address [address] [place] [address] Care Team Providers Care Supervisor Spring Up Name Role Phone Ev Augustin VASILE Primary Care Provider [phone] Allergies Active Allergy Reactions Criticality Noted Date [...] 4 (four) times a day. 1 each 4 Active Immunizations Immunization Administration Dates Next Due Hep B, adult [...] 108 11/08/2023 12:45 PM EDT Temperature 36.7 C (98.1 F) 11/08/2023 12:45 PM EDT Respiratory Rate 18 11/08/2023 12:45 PM EDT [...] Density Scan 1955 [facility]-Infant/Child/Adol SDOH Screenings 1955 [facility]-DPCGD-68 Vaccine (#1) 1961 [facility]- SDOH Screenings 1974 [facility]-Adult SDOH Screenings 1974 CT Colonography 2001 Colonoscopy 2001 FIT-DNA 2001 FIT 2001 FOBT 2001 Sigmoidoscopy 2001 [facility]-Colorectal Cancer Screening 2001 [facility]-Zoster Vaccines (1 of 2) 2006 [facility]-RSV Vaccine: 60+ Years or (1 - Risk 60-74 years 1-dose series) 2016 [facility]-Pneumococcal Vaccine: 50+ Years (2 of 2 - PCV) 05/08/2017 05/08/2016 [facility]-Depression Screening 11/07/2024 11/08/2023 [facility]-Influenza Vaccine (#1) 12/01/202402/27, 02/08/2018, 01/28/2016, Additional history exists [facility]-DTaP,Tdap,and Td Vaccines (2 - Td or Tdap) 05/07/2025 05/07/2015 [facility]-Breast Cancer Screening 06/11/202505/31, 06/12/2023, 09/28/2021, Additional history exists [facility]-Hepatitis C Screening Completed 11/08/2023 [facility]-Obesity Intervention Completed 11/08/2023 HPV Vaccines Aged Out No longer eligi ble based on patient's age to complete this topic [facility]-HIB Vaccines Aged Out No longer e [...] IgM Negative Negative 11/08/2023 4:13 PM EDT [facility] Hepatitis B Core Antibody IgM Negative Negative 11/08/2023 4:13 PM EDT [facility] Blood Venous blood specimen / Unknown Venipuncture / Unknown 11/08/2023 1:57 PM EDT 11/08/2023 2:01 PM EDT us Denis Hudson APRN LAB BLOOD ORDERABLES Final Res ult Performing Organization Address City/State/[facility] Co de Phone Number [facility] [address] [place] [address] from Last 3 Months or Most Recently Relevant to Health Maintenance Insurance Care Teams Supervisor Spring Up Relationship Specialty Start Date End Date Ev Augustin APRN [address] [place] [address] PCP - General 08/13/20
--- OUTSIDE RECORDS SUMMARY | 2024-11-10 09:57 | XMS_ITS | Encounter Summary ---
Author Organization [employer] ([place], [place], [place], [place]) Address [address] [place] [address] Care Team Providers Care Life Cycle Assessment Analyst Name Role Phone Unavailable Primary Care Provider Unavailabl e Encounter Details Date Type Department Care Team (Late st Contact Info) Description 04/25/2019 Transcribed Document [facility] Radiology [address] [place] [address] Provider, Luciano Bronson MD Social [...] [facility] Aiyana ProviderMD - 04/25/2019 7:38 AM EST [...] mom Support Person/Pt Rep Contact Information : [phone] Want Family/Rep/Phys Notified of Admit : No Emergency Contact #1 : Genevaamanda Gonzalez Emergency Contact #1 cell Emergency Contact #1 Relationship : Emergency Contact #2 : Kandi Burt Emergency Contact #2 cell Emergency Contact #2 Relationship : daughter Primary Language : Paraguayan Preferred Communication Mode : Verbal Communication Barrier [...] Scale Risk Level : 25-45 Medium Risk [place] Fall Interventions : Adequate lighting, Assistive devices [...] Source : Measured Height Entry Format : Sharon Height, Feet : 5 ft(Converted to: 152 cm, 60 Inch) Height, Inches : 2 Inch(Converted to: 0 ft 2 Inch, 5.08 cm) Clinical Height : 157.48 cm Weight Source : Standing scale Weight Entry Format : Sharon Clinical Dosing Weight : 82.14 kg Weight, Pounds : 180.7 lb Body Surface Area (BSA) : 1.83 m2 Body Mass Index : 33.1 kg/m2 (HI) [place] Body Weight : 50 kg Daniela Buckner [...] Order for Influenza Vaccine : Declined Vaccination Daniela Buckner RN - 04/25/2019 19:52 EST Pneumococcal [...] Daniela Buckner RN - 04/25/2019 19:52 EST [place] Suicide Severity Rating Scale (C-SSRS) CSSRS Past [...] Daniela Buckner RN - 04/25/2019 19:52 EST documented in this encounter Plan of Treatment Not on file documented as of this encounter Visit Diagnoses Not on filedocumented in this encounter
--- OUTSIDE RECORDS SUMMARY | 2024-11-10 09:57 | XMS_ITS | Encounter Summary ---
Author Organization [employer] ([place], [place], [place], [place]) Address [address] [place] [address] Care Team Providers Care Assistant Refinery Operator Name Role Phone Unavailable Primary Care Provider Unavailabl e Encounter Details Date Type Department Care Team (Late st Contact Info) Description 04/26/2019 Transcribed Document [facility] [address] [facility] [address] [place] [address] Meliza Downs Jr., MD [address] [id number] Social History Tobacco Use Types Packs/Day Years [...]
--- OUTSIDE RECORDS SUMMARY | 2024-11-10 09:57 | XMS_ITS | Clinical Summary ---
Author Organization [facility] Address [address] [facility] [address] [place] [address] Care Team Providers Care Auto Electrical Technician Name Role Phone CharliEv RINA Primary Care Provider [phone] Allergies Active Allergy Reactions Criticality Noted Date Comments Iain Inhibitors Medium 08/19/2020 Pioglitazone 03/21/2023 Amlodipine Diarrhea Low 08/10/2015 Beta Adrenergic Blockers Cough 03/21/2023 Cyclobenzaprine Rash Low 08/10/2015 Empagliflozin Rash Low 09/05/2021 Hydrochlorothiazide Medium 03/04/2021 Latex 03/21/2023 Losartan Potassium-Hctz Rash Low 08/10/2015 Metformin 01/17/2019 Penicillins 03/21/2023 Spironolactone 03/21/2023 Statins Cough 06/04/2023 Medications ProAir HFA 108 (90 Base) MCG/ACT inhaler Inhale 2 puffs if needed for wheezing or shortness of breath. 1 Active baclofen (Lioresal) 10 MG tablet Take 10 mg by mouth 3 (three) times a day. Active bethanechol (Urecholine) 50 MG tablet Take 50 mg by mouth 3 (three) times a day. 3 Active bisoprolol (Zebeta) 5 MG tablet Take 5 mg by mouth 1 (one) time each day. 2 Active Continuous Blood Gluc Sensor (Dexcom G6 Sensor) misc 1 each every 10 (ten) days. 3 Active cyclobenzaprine (Flexeril) 10 MG tablet Take 10 mg by mouth if needed for muscle spasms. Active Desvenlafaxine Succinate ER (Pristiq) 25 MG tablet sustained-relea se 24 hour Take 25 mg by mouth 1 (one) time each day. Active Docusate Sodium (DSS) 100 MG capsule Take 100 mg by mouth every night. Active furosemide (Lasix) 20 MG tablet Take 20 mg by mouth if needed. Active Lantus SoloStar 100 UNIT/ML 3ml Pen Inject under the skin if needed. 3 Active BD Pen Needle Tameka U/F 32G X 4 MM misc 2 Active losartan (Cozaar) 100 MG tablet Take 100 mg by mouth 1 (one) time each day. 3 Active omeprazole (PriLOSEC) [address] capsule Take 40 mg by mouth 1 (one) time each day before breakfast. 3 Active Plecanatide (Trulance) 3 MG tablet Take 3 mg by mouth every night. Active rOPINIRole (Requip) 0.5 MG tablet Take 0.5 mg by mouth every night. Active topiramate 50 MG tablet Take 50 mg by mouth if needed. 3 Active traMADol (Ultram) 50 MG tablet Take 50 mg by mouth 3 (three) times a day. 3 Active meloxicam (Mobic) 7.5 MG tablet Take 7.5 mg by mouth 1 (one) time each day. 3 Active NIFEdipine CC (Adalat CC) 60 MG 24 hr tablet Take 60 mg by mouth 1 (one) time each day before breakfast. 3 Active traZODone (Desyrel) 50 MG tablet Take 50 mg by mouth every night. 3 Active DOMPERIDONE ORAL, HISTORICAL MED ONLY, Take 10 mg by mouth every 3 (three) days. Active Cholecalciferol (Vitamin D-3) 125 MCG (5000 UT) tablet Take 1 tablet by mouth 1 (one) time each day. Active Potassium 99 MG tablet Take 1 tablet by mouth 1 (one) time each day. Active cetirizine (ZyrTEC) 10 MG tablet Take 10 mg by mouth 1 (one) time each day. Active ibuprofen 800 MG tablet Take 1 tablet by mouth every 8 (eight) hours if needed. Active HYDROcodone-iain taminophen (Ducor) 5-325 MG tablet Take 1 tablet by mouth every 6 (six) hours if needed. Active insulin lispro (HumaLOG KWIKPEN) 100 UNIT/ML injection Inject 16 units every day by subcutaneous route before meals for 30 days. Active Airsupra 90-80 MCG/ACT aerosol INHALE 2 INHALATIONS 6 TIMES A DAY NEEDED FOR SHORTNESS OF BREATH OR WHEEZING 4 Active budesonide (Pulmicort Flexhaler) 90 MCG/ACT inhaler INHALE 2 PUFFS BY MOUTH EVERY 12 HOURS Active chlorhexidine (Peridex) 0.12 % solution RINSE WITH 15ML FOR 30 SECONDS AND SPIT, USE TWICE DAILY Active desvenlafaxine (Pristiq) 50 MG 24 hr tablet Take 50 mg by mouth 1 (one) time each day. 4 Active linaGLIPtin (Tradjenta) 5 MG tablet Take 1 tablet by mouth 1 (one) time each day. Active Movantik 25 MG tablet 4 Active Active Problems No known active problems Social History Tobacco Use Types Packs/Day Years Used Date Smoking Tobacco: Never Passive Smoke Exposure: Past Smokeless Tobacco: Never Tobacco Cessation:Counseling Given: Not Answered Comments Unknown Sex and Gender Information Value Date Recorded Sex Assigned at Not on file Legal Sex Female 9:03 PM EDT Gender Identity Not on file Sexual Orientation Not on file Last Filed Vital Signs Vital Sign Reading Time Taken Comments Blood Pressure 156/70 05/21/2024 12:43 PM EST Pulse 97 03/21/2023 8:46 AM EST Temperature 36.3 C (97.4 F) 03/21/2023 8:46 AM EST Respiratory Rate 16 05/21/2024 12:43 PM EST Oxygen Saturation 97% 05/21/2024 12:43 PM EST Inhaled Oxygen Concentration - - Weight 86.2 kg (190 lb) 05/21/2024 12:43 PM EST Height 154.9 cm (5' 1 ) 05/21/2024 12:43 PM EST Body Mass Index 35.9 05/21/2024 12:43 PM EST Plan of Treatment Upcoming Encounters Date Type Department Care Team (Late st Contact Info) Description 05/21/2025 1:00 PM EST Office Visit [facility] [address] [place] [address] Nasrin Roque PA [address] [place] [address], [address] [place] [address] Health Maintenance Due Date Last Done Comments Bone Density Scan 1956 CT Colonography 1956 Colonoscopy 1956 Colorectal Cancer Screening 1956 FIT-DNA (Cologuard) 1956 FIT 1956 FOBT 1956 Hepatitis C Screening 1956 Lipid Panel 1955 Medicare Annual Wellness (AWV) 1956 Sigmoidoscopy 1956 Diabetes: Foot Exam 1966 Diabetes: Retinopathy Screening 1966 Hepatitis B Screening 1974 DTaP/Tdap/Td Vaccines (1 - Tdap) 12/25/1975 Hepatitis A Vaccines (1 of 2 - Risk 2-dose series) 12/25/1975 Pneumococcal Vaccine: 50+ Years (1 of 2 - PCV) 12/25/1975 Zoster Vaccines (1 of 2) 2006 Hepatitis B Vaccines (1 of 3 - Risk 3-dose series) 2016 Diabetes: Urine Protein Screening 08/26/2023 08/25/2022, 04/25/2021 Diabetes: Hemoglobin A1C 11/28/2023 024, 02/27/2023, 11/27/2022, Additional history exists COVID-19 Vaccine ( - season) 2023 Depression Risk Screening 04/02/2024 Fall Risk Screening 04/02/2024 SDOH Screening 04/02/2024 Mammogram 06/11/2024 06/12/2023, 06/2 12/2021, 01/30/2020, Additional history exists Influenza Vaccine (#1) 2024 , 02/27/2023, 02/08/2018, Additional history exists HIB Vaccines Aged Out No longer eligi ble based on patient's age to complete this topic HPV Vaccines Aged Out No longer eligi ble based on patient's age to complete this topic IPV Vaccines Aged Out No longer eligi ble based on patient's age to complete this topic Meningococcal B Vaccine Aged Out No l onger eligible based on patient's age to complete this topic Meningococcal Vaccine Aged Out No matias tianna eligible based on patient's age to complete this topic Rotavirus Vaccines Aged Out No longer eligible based on patient's age to complete this topic Insurance [employer] MEDICARE ADVANTAGE Care Teams Auto Electrical Technician Relationship Specialty Start Date End Date Ev Augustin NP [address] [place] [address] PCP - General 12/26/19
--- OUTSIDE RECORDS SUMMARY | 2024-11-10 09:57 | XMS_ITS | Encounter Summary ---
Author Organization [employer] ([place], [place], [place], [place]) Address [address] [place] [address] Care Team Providers Care Change Attendant Name Role Phone Unavailable Primary Care Provider Unavailabl e Encounter Details Date Type Department Care Team (Late st Contact Info) Description 04/25/2019 Transcribed Document [facility] Radiology [address] [place] [address] Provider, Luciano Bronson MD Social History Tobacco Use Types Packs/Day Years Used Date Smoking Tobacco: Never Assessed Comments Unknown Sex and Gender Information Value Date Recorded Sex Assigned at Not on file Legal Sex Female 6:01 PM CDT Gender Identity Not on file Sexual Orientation Not on file documented as of this encounter Miscellaneous Notes * Cerner Conversion Note - [facility] Aiyana ProviderMD - 04/25/2019 6:45 PM EST [...]
--- OUTSIDE RECORDS SUMMARY | 2024-11-10 09:57 | XMS_ITS | Encounter Summary ---
Author Organization [employer] ([place], [place], [place], [place]) Address [address] [place] [address] Care Team Providers Care Foreign Trade Teacher Name Role Phone Unavailable Primary Care Provider Unavailabl e Encounter Details Date Type Department Care Team (Late st Contact Info) Description 04/25/2019 Transcribed Document [facility] Radiology [address] [place] [address] Provider, yvon Bronson MD Social History [...] Note - [facility] Aiyana ProviderMD - 04/25/2019 1:05 PM EST [facility] Main OR Preop Summary Primary Physician: MELIZA DOWNS MD- Finalized Date/Time: 04/25/19 13:08:43 Pt. Name: GERTRUDIS DALY /Sex: 1955 Female Med Rec #: [id number] Physician: MELIZA DOWNS MD-[facility] Financial #: [id number] Pt. Type: I Room/Bed: ASA/1 Admit/Disch: 04/25/19 06:38:00 - Institution: [facility] PreOp Case Times Entry 1 In Preop 04/25/19 07:51:00 Ready for Holding n/a Room Patient Ready for 04/25/19 09:28:00 Surgery Patient Out of Preop 04/25/19 11:14:00 Patient Out of n/a Holding Room Last Modified By: CHRISTELLE MCCORD RN 04/25/19 13:08:36 [facility] PreOp Case Times Audit 04/25/19 13:08:36 Project Mgr: [email or web address] Modifier: [email or web address] <+> 1 Patient Out of Preop 04/25/19 09:28:42 Project Mgr: [email or web address] Modifier: [email or web address] <+> 1 Patient Ready for Surgery Finalized By: CHRISTELLE MCCORD V., RN Document Signatures Signed By: CHRISTELLE MCCORD RN 04/25/19 13:08 Electronically signed by [facility] Conversion Australian Rules Footballer Cerner at 08/23/2022 11:18 AM CDT documented in this encounter Plan of Treatment Not on file documented as of this encounter Visit Diagnoses Not on filedocumented in this encounter
--- OUTSIDE RECORDS SUMMARY | 2024-11-10 09:57 | XMS_ITS | Encounter Summary ---
Author Organization [employer] ([place], [place], [place], [place]) Address [address] [place] [address] Care Team Providers Care Forest Pathology Teacher Name Role Phone Unavailable Primary Care Provider Unavailabl e Encounter Details Date Type Department Care Team (Late st Contact Info) Description 04/23/2019 Transcribed Document [facility] Radiology [address] [place] [address] Provider, Luciano Bronson MD Social History Tobacco Use Types Packs/Day Years Used Date Smoking Tobacco: Never Assessed Comments Unknown Sex and Gender Information Value Date Recorded Sex Assigned at Not on file Legal Sex Female 6:01 PM CDT Gender Identity Not on file Sexual Orientation Not on file documented as of this encounter Miscellaneous Notes * Cerner Conversion Note - [facility] Aiyana ProviderMD - 04/23/2019 1:00 PM EST [facility] Main OR PACU Summary Primary Physician: MELIZA DOWNS MD-[facility] Finalized Date/Time: 04/23/19 18:34:36 Pt. Name: GERTRUDIS DALY /Sex: 1955 Female Med Rec #: [id number] Physician: MELIZA DOWNS MD-[facility] Financial #: [id number] Pt. Type: O Room/Bed: /24 Admit/Disch: 04/23/19 10:57:00 - 04/23/19 18:25:00 Institution: [facility] Main OR PACU I Case Times Entry 1 In PACU I 04/23/19 16:50:00 Ready for PACU 04/23/19 18:00:00 Discharge Discharge from PACU 04/23/19 18:03:00 I Last Modified By: Ev Parada RN 04/23/19 18:34:11 [facility] Main OR PACU I Case Times Audit 04/23/19 18:34:11 Gaming Host: [id number] Modifier: [id number] <+> 1 Ready for PACU Discharge <+> 1 Discharge from PACU I Finalized By: Ev Parada RN Document Signatures Signed By: Ev Parada RN 04/23/19 18:34 Electronically signed by Carito [facility] Conversion Client Manager Cerner at 08/23/2022 11:19 AM CDT documented in this encounter Plan of Treatment Not on file documented as of this encounter Visit Diagnoses Not on filedocumented in this encounter
--- OUTSIDE RECORDS SUMMARY | 2024-11-10 09:57 | XMS_ITS | Encounter Summary ---
Author Organization [employer] ([place], [place], [place], [place]) Address [address] [place] [address] Care Team Providers Care Siebel Crm Developer Name Role Phone Unavailable Primary Care Provider Unavailabl e Encounter Details Date Type Department Care Team (Late st Contact Info) Description 04/24/2019 Transcribed Document [facility] [address] [place] [address] ProviderLuciano MD Social History Tobacco [...] - [facility] Aiyana ProviderMD - 04/24/2019 2:26 PM EST UM Authorization Entered On: 04/24/2019 13:27 EST Performed On: 04/24/2019 13:26 EST by FRANCY MILIAN Sugar Plantation Manager Primary Insurance Authorization Authorization and Policy Numbers : Insurance 1 Health Plan: [employer] MEDICARE REPL Policy Number: [id number] Authorization Number: [id number] Insurance Primary Name : Mariela [id number] Authorization Status-Primary : Admit approved Authorization Number-Primary : [id number] Authorized Service Begin Date-Primary : 04/25/2019 EST Authorization Comments-Primary : per STAR inpt approved 1 day auth# [id number] Historical Authorization Comments-Primary : No Authorization Comments Found FRANCY MILIAN, Sugar Plantation Manager - 04/24/2019 13:26 EST Electronically signed by Luciano Arzate Conversion Director Of Instrumental Music Cerner at 08/23/2022 11:18 AM CDT documented in this encounter Plan of Treatment Not on file documented as of this encounter Visit Diagnoses Not on filedocumented in this encounter
--- OUTSIDE RECORDS SUMMARY | 2024-11-10 09:57 | XMS_ITS | Encounter Summary ---
Author Organization [employer] ([place], [place], [place], [place]) Address [address] [place] [address] Care Team Providers Care Plastic Shaper Name Role Phone Unavailable Primary Care Provider Unavailabl e Encounter Details Date Type Department Care Team (Late st Contact Info) Description 04/23/2019 Transcribed Document [facility] Radiology [address] [place] [address] Provider, Luciano Bronson MD Social History Tobacco Use Types Packs/Day Years Used Date Smoking Tobacco: Never Assessed Comments Unknown Sex and Gender Information Value Date Recorded Sex Assigned at Not on file Legal Sex Female 6:01 PM CDT Gender Identity Not on file Sexual Orientation Not on file documented as of this encounter Miscellaneous Notes * Cerner Conversion Note - [facility] Aiyana ProviderMD - 04/23/2019 12:37 PM EST Pre Procedure Adult Entered On: 04/23/2019 11:40 EST Performed On: 04/23/2019 11:37 EST by CHRISTOPHER MONTIEL RN Height and Weight, Clinical Dosing Height Source : Stated Height Entry Format : [place] Height, Feet : 5 ft(Converted to: 152 cm, 60 Inch) Height, Inches : 2 Inch(Converted to: 0 ft 2 Inch, 5.08 cm) Clinical Height : 157.48 cm Weight Source : Standing scale Weight Entry Format : [place] Clinical Dosing Weight : 81.82 kg Weight, Pounds : 180 lb Body Surface Area (BSA) : 1.83 m2 Body Mass Index : 33 kg/m2 ([place]) [place] Body Weight : 50 kg CHRISTOPHER MONTIEL [...] CHRISTOPHER MONTIEL RN - 04/23/2019 11:37 EST [place] Suicide Severity Rating Scale (C-SSRS) CSSRS Past [...] Navarro-Friend Support Person/Pt Rep Contact Information : [phone] Want Family/Rep/Phys Notified of Admit : No Emergency Contact #1 : . Emergency Contact #1 Phone Number : . Emergency Contact #1 Relationship : . Emergency Contact #2 : . Emergency Contact #2 Phone Number : . Emergency Contact #2 Relationship : . Primary Language : Lao Preferred Communication Mode : Verbal Communication Barrier [...] Scale Risk Level : 0-24 Low Risk [place] Fall Interventions : Adequate lighting, Assistive devices [...]
--- OUTSIDE RECORDS SUMMARY | 2024-11-10 09:57 | XMS_ITS | Encounter Summary ---
Author Organization [employer] ([place], [place], [place], [place]) Address [address] [place] [address] Care Team Providers Care Landscape Specialist Name Role Phone Unavailable Primary Care Provider Unavailabl e Encounter Details Date Type Department Care Team (Late st Contact Info) Description 04/25/2019 Transcribed Document [facility] Radiology [address] [place] [address] Provider, Luciano Bronson MD Social History Tobacco Use Types Packs/Day Years Used Date Smoking Tobacco: Never Assessed Comments Unknown Sex and Gender Information Value Date Recorded Sex Assigned at Not on file Legal Sex Female 6:01 PM CDT Gender Identity Not on file Sexual Orientation Not on file documented as of this encounter Miscellaneous Notes * Cerner Conversion Note - [facility] Aiyana ProviderMD - 04/25/2019 1:05 PM EST [facility] Main OR PACU Summary Primary Physician: MELIZA DOWNS MD-[facility] Finalized Date/Time: 04/25/19 20:10:04 Pt. Name: ADDY GERTRUDIS Gilbert /Sex: 1955 Female Med Rec #: [id number] Physician: MELIZA DOWNS MD-[facility] Financial #: [id number] Pt. Type: I Room/Bed: [facility]/ Admit/Disch: 04/25/19 06:38:00 - Institution: [facility] Main OR PACU I Case Times Entry 1 In PACU I 04/25/19 17:45:00 Ready for PACU 04/25/19 18:35:00 Discharge Discharge from PACU 04/25/19 19:35:00 I Last Modified By: Owen Barrera, IAN 04/25/19 20:09:15 Finalized By: Owen Barrera RN Document Signatures Signed By: Owen Barrera RN 04/25/19 20:10 documented in this encounter Plan of Treatment Not on file documented as of this encounter Visit Diagnoses Not on filedocumented in this encounter
--- OUTSIDE RECORDS SUMMARY | 2024-11-10 09:57 | XMS_ITS | Encounter Summary ---
Author Organization [employer] ([place], [place], [place], [place]) Address [address] [place] [address] Care Team Providers Care Mortuary Operations Manager Name Role Phone Unavailable Primary Care Provider Unavailabl e Encounter Details Date Type Department Care Team (Late st Contact Info) Description 05/01/2019 Transcribed Document [facility] Radiology 1 [place] [address] Provider, Luciano Bronson MD Social History Tobacco Use Types Packs/Day Years Used Date Smoking Tobacco: Never Assessed Comments Unknown Sex and Gender Information Value Date Recorded Sex Assigned at Not on file Legal Sex Female 6:01 PM CDT Gender Identity Not on file Sexual Orientation Not on file documented as of this encounter Miscellaneous Notes * Cerner Conversion Note - [facility] Aiyana ProviderMD - 05/01/2019 3:26 PM EST On Going Discharge Planning Entered On: 05/01/2019 14:26 EST Performed On: 05/01/2019 14:26 EST by MERLINE NEWMAN RN-Certified Professional ControllerServer Software Engineer Progress Note Discharge Arrangements : Patient Post-Acute Information Patient Name: GERTRUDIS DALY Gender: Female : [birth year] Age: 63 Years No Post-Acute Placement(s) Listed No Post-Acute Service(s) Listed No [place] Referral(s) Listed Discharge Options Discussed with Patient : Short term rehabilitation Barriers to Discharge Identified : Clinical Condition of Patient Barriers to Discharge Unresolved : Clinical Condition of Patient MERLINE NEWMAN RN-Certified Professional Controller - 05/01/2019 14:26 EST Narrative Progress Note Narrative Progress Note : [facility] precert still pend Historical Progress Note : Urology consulted for neurogenic bladder. Pt's choices of [facility] and [facility] are not in network with pt's payor source. D/W pt at bedside. She has chose [facility] now. Referral sent via Tc and informed Colleene. Precert intitated for acute. CM will continue to follow. ROMELIA MCADAMS RN-Certified Professional Controller - 04/29/19 15:26:05 MERLINE NEWMAN, RN-Certified Professional Controller - 05/01/2019 14:26 EST documented in this encounter Plan of Treatment Not on file documented as of this encounter Visit Diagnoses Not on filedocumented in this encounter
--- OUTSIDE RECORDS SUMMARY | 2024-11-10 09:57 | XMS_ITS | Encounter Summary ---
Author Organization [employer] ([place], [place], [place], [place]) Address [address] [place] [address] Care Team Providers Care Tax Services Professional Name Role Phone Unavailable Primary Care Provider Unavailabl e Encounter Details Date Type Department Care Team (Late st Contact Info) Description 04/23/2019 Transcribed Document [facility] Radiology 1 [place] [address] Provider, [facility] MD Aiyana Social History Tobacco Use Types Packs/Day Years Used Date Smoking Tobacco: Never Assessed Comments Unknown Sex and Gender Information Value Date Recorded Sex Assigned at Not on file Legal Sex Female 6:01 PM CDT Gender Identity Not on file Sexual Orientation Not on file documented as of this encounter Miscellaneous Notes * Cerner Conversion Note - [facility] Aiyana ProviderMD - 04/23/2019 7:04 PM EST [facility] [address] [place] [address] GERTRUDIS DALY :1955 Visit Time:04/23/2019 Your Visit Summary Your Care Team Admitting Physician - MELIZA DOWNS MD-[facility] Attending Physician - MELIZA DOWNS MD-[facility] Primary Care Physician - LULY URIBE NP-INT Referring Physician - LULY URIBE NP-MELIZA ESPINOSA MD-[facility] Discharge Vitals Temperature 36.6 ??C Heart Rate (Monitored) 63 Respiratory Rate 18 Blood Pressure 150/73 What to do next Instructions From Your Care Team No driving for 24 hours. Follow-Up Appointments Follow Up with MELIZA DOWNS MD-[facility] When Within 2 to 3 days Comments Call for follow up appointment for results. Where: [address] [facility] [address] [place] [address]- Medications What How Much When Instructions Next [...] activities are safe for you. ??? Take lpnf-htz-vousdbr and prescription medicines only as told by [...] 06/25/2001 Document Revised: 11/02/2017 Document Reviewed: 11/02/2017 [employer] Interactive Patient Education ?? 2019 [employer] Magnetic Resonance Imaging Magnetic resonance imaging [...] including vitamins, herbs, eye drops, creams, and htzp-wgv-bkbttwz medicines. What are the risks? Generally, MRI [...] 03/16/2001 Document Revised: 08/21/2016 Document Reviewed: 05/14/2014 [employer] Interactive Patient Education ?? 2017 [employer] Emergency Awareness and Preventative Care STROKE [...] Assistance with quitting is available by contacting [phone]. This is a free resource providing counseling, [...] 1: Device Comment 1 Patient Name:GERTRUDIS DALY I have received and understand this information and was given the opportunity to ask questions. Patient/Registered Nurse Bone Marrow Transplant Name: Patient/Registered Nurse Bone Marrow Transplant Signature: Relationship to Patient: Clinician/Hospital Registered Nurse Bone Marrow Transplant Signature: Date: Electronically signed by Carito, [facility] Conversion Community Liaison Officer Curtis at 08/23/2022 11:19 AM CDT documented in this encounter Plan of Treatment Not on file documented as of this encounter Visit Diagnoses Not on filedocumented in this encounter
--- OUTSIDE RECORDS SUMMARY | 2024-11-10 09:57 | XMS_ITS | Encounter Summary ---
Author Organization [employer] ([place], [place], [place], [place]) Address [address] [place] [address] Care Team Providers Care Tools Administrator Name Role Phone Unavailable Primary Care Provider Unavailabl e Encounter Details Date Type Department Care Team (Late st Contact Info) Description 05/02/2019 Transcribed Document [facility] Radiology 1 [place] [address] ProviderLuciano MD Social History Tobacco Use Types Packs/Day Years Used Date Smoking Tobacco: Never Assessed Comments Unknown Sex and Gender Information Value Date Recorded Sex Assigned at Not on file Legal Sex Female 6:01 PM CDT Gender Identity Not on file Sexual Orientation Not on file documented as of this encounter Miscellaneous Notes * Cerner Conversion Note - [facility] Aiyana ProviderMD - 05/02/2019 1:32 PM EST [...] at home: Medicines ??? Take or apply pegv-oua-vrkatvl and prescription medicines only as told by [...] cannot use soap and water, use hand cadworx piping designer. ? Change your bandage as told by [...] 12/26/2008 Document Revised: 08/24/2016 Document Reviewed: 09/06/2015 [employer] Interactive Patient Education ? 2019 [employer] Orthopedics Laminectomy, Care After This sheet [...] and water are not available, use hand cadworx piping designer. ? Change your dressing as told by [...] or a bad smell. Medicines ??? Take gwet-ren-iunwvou and prescription medicines only as told by [...] urine clear or pale yellow. ? Take pbdk-cce-dflercv or prescription medicines. ? Eat foods that [...] 09/03/2016 [employer] Interactive Patient Education ? 2019 [employer] Inc[employer] Electronically signed by Luciano Arzate Conversion Assistant Professor Of Education Cerner at 08/23/2022 11:18 AM CDT documented in this encounter Plan of Treatment Not on file documented as of this encounter Visit Diagnoses Not on filedocumented in this encounter
--- OUTSIDE RECORDS SUMMARY | 2024-11-10 09:57 | XMS_ITS | Encounter Summary ---
Author Organization [employer] ([place], [place], [place], [place]) Address [address] [place] [address] Care Team Providers Care Relationship Associate Name Role Phone Unavailable Primary Care Provider Unavailabl e Encounter Details Date Type Department Care Team (Late st Contact Info) Description 05/02/2019 Transcribed Document [facility] [address] [facility] [address] [place] [address] Meliza Downs Jr., MD [address] [place] [id number] Social History Tobacco Use Types Packs/Day Years [...] 100 mg= 2 Cap, Oral, TID Metamucil [place] Smooth Texture Sugar Free, 1 Packet, Oral, [...] Percent Man 24 % 05/02/2019 03:02 EST [place] Percent Man 8 % (High) 05/02/2019 03:02 [...]
--- OUTSIDE RECORDS SUMMARY | 2024-11-10 09:57 | XMS_ITS | Encounter Summary ---
Author Organization [employer] ([place], [place], [place], [place]) Address [address] [place] [address] Care Team Providers Care Analysis Lead Name Role Phone Unavailable Primary Care Provider Unavailabl e Encounter Details Date Type Department Care Team (Late st Contact Info) Description 05/02/2019 Transcribed Document [facility] Radiology [address] [place] [address] Provider, Luciano Bronson MD Social History Tobacco Use Types Packs/Day Years Used Date Smoking Tobacco: Never Assessed Comments Unknown Sex and Gender Information Value Date Recorded Sex Assigned at Not on file Legal Sex Female 6:01 PM CDT Gender Identity Not on file Sexual Orientation Not on file documented as of this encounter Miscellaneous Notes * Cerner Conversion Note - [facility] Aiyana ProviderMD - 05/02/2019 1:41 PM EST Final Discharge Planning Entered On: 05/02/2019 12:43 EST Performed On: 05/02/2019 12:41 EST by ROMELIA MCADAMS RN-Legal Editor Final Discharge Planning Discharge Arrangements : Patient [...] Health Services (Related/SOC within 3 days)-06 ROMELIA MCADAMS, RN-Legal Editor - 05/02/2019 12:41 EST Final Narrative Note Final Narrative Note : Precrt denied for acute rehab at [facility]. PT dc'd pt yesterday stating she met all inpatient goals and ambulating 380ft. CM discussed with pt aND SPOUSE AT BEDSIDE.pT WILL LIKELY BE DENIED SUBACUTE WELL. 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 Mattie WITH [facility] WAS ABLE TO PLACE PT WITH aMEDYSIS. FRW and BSC obtained from [employer] and have been delivered. No other CM need identified. ROMELIA MCADAMS RN-Legal Editor - 05/02/2019 12:41 EST documented in this encounter Plan of Treatment Not on file documented as of this encounter Visit Diagnoses Not on filedocumented in this encounter
--- OUTSIDE RECORDS SUMMARY | 2024-11-10 09:57 | XMS_ITS | Encounter Summary ---
Author Organization [employer] ([place], [place], [place], [place]) Address [address] [place] [address] Care Team Providers Care Food Supervisor Name Role Phone Unavailable Primary Care Provider Unavailabl e Encounter Details Date Type Department Care Team (Late st Contact Info) Description 05/05/2019 Transcribed Document [facility] Radiology 1 [place] [address] Provider, Luciano Bronson MD Social History Tobacco Use Types Packs/Day Years Used Date Smoking Tobacco: Never Assessed Comments Unknown Sex and Gender Information Value Date Recorded Sex Assigned at Not on file Legal Sex Female 6:01 PM CDT Gender Identity Not on file Sexual Orientation Not on file documented as of this encounter Miscellaneous Notes * Cerner Conversion Note - [facility] Aiyana ProviderMD - 05/05/2019 3:05 PM EST UM Authorization Entered On: 05/05/2019 14:05 EST Performed On: 05/05/2019 14:05 EST by Dayna Rios, Gas And Oil Checker Primary Insurance Authorization Authorization and Policy Numbers : Insurance 1 Health Plan: [employer] MEDICARE REPL Policy Number: [id number] Authorization Number: [id number] Insurance Primary Name : Mariela [id number] Authorization Status-Primary : Admit approved Auth/Referral Contact Name-Primary : DC Authorization Number-Primary : [id number] Number of Days Authorized-Primary : 8 Day(s) Authorized Service Begin Date-Primary : 04/25/2019 EST Authorized Service End Date-Primary : 05/03/2019 EST Authorization Comments-Primary : Discharge date and summary faxed. Historical Authorization Comments-Primary : Comment 1: c/s auth approved per brigette for 05/01 to 05/02. minh 05/03 (Gali Newman, Rn-Utilization Review 05/02/2019 08:47) Comment 2: Authorized per fax 04/29/2019 @ 1530. Approved x5 days (6 total: 04/25-04/30). Next review due on 05/01/2019. Tameka Davidson, RN. (Dayna Rios, Gas And Oil Checker 04/30/2019 07:06) Comment 3: clinical faxed per cerner for 04/27 and 04/28 (Gali Newman, Rn-Utilization Review 04/28/2019 15:19) Comment 4: call back from tameka lui with [employer] requesting clinical be faxed to [phone]. clinical faxed per cerner (Gali Newman, Rn-Utilization Review 04/28/2019 15:17) Comment 5: lvm with brigette lui with [employer] for c/s . acb (Gali Newman, Rn-Utilization Review 04/28/2019 13:51) Comment 6: clinicals faxed via cerner for cont stay (only 1 day approved) (BULMARO DUONG, RN-Utilization Review 04/26/2019 13:11) Comment 7: per STAR inpt approved 1 day auth# [id number] (FRANCY MILIAN, Casting Machine Adjuster 04/24/2019 13:26) Dayna Rios, Gas And Oil Checker - 05/05/2019 14:05 EST Electronically signed by Carito [facility] Conversion Weight Reducing Technician Cerner at 08/23/2022 11:19 AM CDT documented in this encounter Plan of Treatment Not on file documented as of this encounter Visit Diagnoses Not on filedocumented in this encounter
--- OUTSIDE RECORDS SUMMARY | 2024-11-10 09:57 | XMS_ITS | Encounter Summary ---
Author Organization [employer] ([place], [place], [place], [place]) Address [address] [place] [address] Care Team Providers Care Policy Writer Sales Name Role Phone Unavailable Primary Care Provider Unavailabl e Encounter Details Date Type Department Care Team (Late st Contact Info) Description 04/25/2019 Transcribed Document [facility] [address] [facility] [address] [place] [address] Meliza Downs Jr., MD [facility] [place] [id number] Social History Tobacco Use Types Packs/Day Years [...]
--- OUTSIDE RECORDS SUMMARY | 2024-11-10 09:57 | XMS_ITS | Encounter Summary ---
Author Organization [employer] ([place], [place], [place], [place]) Address [address] [place] [address] Care Team Providers Care Census Enumerator Name Role Phone Unavailable Primary Care Provider Unavailabl e Encounter Details Date Type Department Care Team (Late st Contact Info) Description 04/25/2019 Transcribed Document [facility] Radiology [address] [place] [address] Provider, Luciano Bronson MD Social [...] * Cerner Conversion Note - [facility] Aiyana ProviderMD - 04/25/2019 10:03 AM EST [...] Anesthesiologist Procedure Case Attendee Role 2 : legal activity adjudicator Case Attendee 2 : RICARDO Rojas RN Procedure Case Attendee Role 3 : legal activity adjudicator Case Attendee 3 : JACKIE PERALTA RN [...]
--- OUTSIDE RECORDS SUMMARY | 2024-11-10 09:57 | XMS_ITS | Encounter Summary ---
Author Organization [employer] ([place], [place], [place], [place]) Address [address] [place] [address] Care Team Providers Care Pain Management Nurse Practitioner Name Role Phone Unavailable Primary Care Provider Unavailabl e Encounter Details Date Type Department Care Team (Late st Contact Info) Description 04/25/2019 Transcribed Document [facility] Radiology [address] [place] [address] ProviderLuciano MD Social History Tobacco Use Types Packs/Day Years Used Date Smoking Tobacco: Never Assessed Comments Unknown Sex and Gender Information Value Date Recorded Sex Assigned at Not on file Legal Sex Female 6:01 PM CDT Gender Identity Not on file Sexual Orientation Not on file documented as of this encounter Miscellaneous Notes * Cerner Conversion Note - [facility] Aiyana ProviderMD - 04/25/2019 6:44 PM EST [...] 04/27/2019 8:44 EST Electronically signed by Carito [facility] Conversion Talent Sourcer Cerner at 08/23/2022 11:19 AM CDT documented in this encounter Plan of Treatment Not on file documented as of this encounter Visit Diagnoses Not on filedocumented in this encounter
--- OUTSIDE RECORDS SUMMARY | 2024-11-10 09:57 | XMS_ITS | Encounter Summary ---
Author Organization [employer] ([place], [place], [place], [place]) Address [address] [place] [address] Care Team Providers Care Industrial Roof Plumber Name Role Phone Unavailable Primary Care Provider Unavailabl e Encounter Details Date Type Department Care Team (Late st Contact Info) Description 04/25/2019 Transcribed Document [facility] Radiology [address] [place] [address] ProviderLuciano MD Social History Tobacco Use Types Packs/Day Years Used Date Smoking Tobacco: Never Assessed Comments Unknown Sex and Gender Information Value Date Recorded Sex Assigned at Not on file Legal Sex Female 6:01 PM CDT Gender Identity Not on file Sexual Orientation Not on file documented as of this encounter Miscellaneous Notes * Cerner Conversion Note - [facility] Aiyana ProviderMD - 04/25/2019 10:00 PM EST [...]
--- OUTSIDE RECORDS SUMMARY | 2024-11-10 09:57 | XMS_ITS | Encounter Summary ---
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 Name Role Phone Unavailable Primary Care Provider Unavailabl e Encounter Details Date Type Department Care Team (Late st Contact Info) Description 04/25/2019 Transcribed Document [facility] Radiology [address] [place] [address] Provider, yvon Bronson MD Social History Tobacco Use Types Packs/Day Years Used Date Smoking Tobacco: Never Assessed Comments Unknown Sex and Gender Information Value Date Recorded Sex Assigned at Not on file Legal Sex Female 6:01 PM CDT Gender Identity Not on file Sexual Orientation Not on file documented as of this encounter Miscellaneous Notes * Cerner Conversion Note - [facility] Aiyana ProviderMD - 04/25/2019 1:05 PM EST [facility] Main OR IntraOp Summary Primary Physician: MELIZA DOWNS MD-SNU Finalized Date/Time: 04/27/19 12:47:33 Pt. Name: KANG DALYGHANSHYAM Gilbert /Sex: 1955 Female Med Rec #: [id number] Physician: MELIZA DOWNS MD-NIYA Financial #: [id number] Pt. Type: I Room/Bed: [facility] Admit/Disch: 04/25/19 06:38:00 - Institution: [facility] IntraOp Case Attendance Entry 1 Entry 2 Entry 3 Case Attendee MELIZA DOWNS MD-SNU Burdine, Teresa A, RN BRADY, CHRISTINA M, RN Role Performed Surgeon/Proceduralist, Assistant Coach, First Assistant Coach, First First Time In 04/25/19 11:21:00 04/25/19 11:21:00 04/25/19 11:21:00 Time Out 04/25/19 17:43:00 04/25/19 17:43:00 04/25/19 12:15:00 Procedure Lumbar Laminectomy Lumbar Laminectomy Lumbar Laminectomy Other Attendee lunch relief Superficial Wound Closed By: Last Modified By: Lida Mitchell RN Burdine, Teresa A, Lida Ho RN 04/25/19 17:44:12 04/25/19 17:44:12 04/25/19 17:44:12 Entry 4 Entry 5 Entry 6 Case Attendee JACKSON PATTERSON, [facility] Oscar MONAHAN Mark, DAHLIA BURRIS-JEB Role Performed Scrub, First Physician medicine assistant LINE DECORATOR/Nurse Drying Machine Receiver Time In 04/25/19 11:21:00 04/25/19 11:21:00 04/25/19 [...] TSAI MD-Courtney Arenas, OTHER, ATTENDEE #1 Diagnostic Mission Systems Engineer Role Performed Anesthesiologist of Child Psychologist Other Record Time In 04/25/19 11:21:00 04/25/19 11:21:00 04/25/19 11:21:00 Time Out 04/25/19 17:43:00 04/25/19 17:43:00 04/25/19 17:43:00 Procedure Lumbar Laminectomy Lumbar Laminectomy Lumbar Laminectomy Other Attendee neuro monitor joao moon Superficial Wound Closed By: Last Modified By: Lida Mitchell RN Burdine, Teresa A, Lida Ho RN 04/25/19 17:44:12 04/25/19 17:44:12 04/25/19 17:44:12 Entry 10 Entry 11 Case Attendee Kermit Zavala Radiologic WASSON, SANDRA D RN Technologist Role Performed Child Psychologist Scrub, Second Time In 04/25/19 13:10:00 04/25/19 13:00:00 Time Out 04/25/19 14:38:00 04/25/19 14:15:00 Procedure Lumbar Laminectomy Lumbar Laminectomy Other Attendee LUNCH RELIEF Superficial Wound Closed By: Last Modified By: Lida Mitchell RN Burdine, Teresa A, RN 04/25/19 17:44:12 04/25/19 17:44:12 [facility] Intra[facility] Case Attendance Audit 04/25/19 17:44:12 Hand Loom Weaver: [id number] Modifier: [id number] <+> Time Out 1 <*> Procedure [...] 11 <*> Procedure Lumbar Laminectomy 04/25/19 16:08:03 Hand Loom Weaver: [id number] Modifier: [id number] <+> Time Out 3 <*> Procedure Lumbar Laminectomy 04/25/19 14:51:38 Hand Loom Weaver: [id number] Modifier: [id number] <+> Time Out 10 <*> Procedure Lumbar Laminectomy 04/25/19 14:16:00 Hand Loom Weaver: [id number] Modifier: [id number] <+> Time Out 11 <*> Procedure Lumbar Laminectomy 04/25/19 13:35:44 Hand Loom Weaver: [id number] Modifier: [id number] <+> 10 Case Attendee <+> 10 Role Performed <+> 10 Time In <+> 10 Procedure <+> 10 Other Attendee <+> 11 Case Attendee <+> 11 Role Performed <+> 11 Time In <+> 11 Procedure 04/25/19 12:44:43 Hand Loom Weaver: [id number] Modifier: [id number] <+> 1 Procedure 2 <*> Procedure Lumbar Laminectomy 3 <*> Procedure Lumbar Laminectomy 4 <*> Procedure Lumbar Laminectomy 5 <*> Procedure Lumbar Laminectomy 6 <*> Procedure Lumbar Laminectomy 7 <*> Procedure Lumbar Laminectomy 8 <*> Procedure Lumbar Laminectomy 9 <*> Procedure Lumbar Laminectomy 04/25/19 12:43:20 Hand Loom Weaver: [id number] Modifier: [id number] <*> Procedure Lumbar Laminectomy 3 <*> Procedure Lumbar Laminectomy 4 <*> Procedure Lumbar Laminectomy 5 <*> Procedure Lumbar Laminectomy 6 <*> Procedure Lumbar Laminectomy 7 <*> Procedure Lumbar Laminectomy 8 <*> Procedure Lumbar Laminectomy 9 <+> Time In 9 <*> Procedure Lumbar Laminectomy 04/25/19 12:25:13 Hand Loom Weaver: [id number] Modifier: [id number] <*> Procedure Lumbar Laminectomy 3 <*> Procedure Lumbar Laminectomy 4 <*> Procedure Lumbar Laminectomy 5 <*> Procedure Lumbar Laminectomy 6 <*> Procedure Lumbar Laminectomy 7 <*> Procedure Lumbar Laminectomy 8 <+> Time In 8 <*> Procedure Lumbar Laminectomy <+> 9 Case Attendee <+> 9 Role Performed <+> 9 Procedure <+> 9 Other Attendee 04/25/19 12:23:07 Hand Loom Weaver: [id number] Modifier: [id number] <+> 1 Time In 2 <+> Time [...] <+> 8 Role Performed <+> 8 Procedure [facility] IntraOp Case Times Entry 1 Patient In Room Time 04/25/19 11:21:00 Out Room Time 04/25/19 17:43:00 Anesthesia Start Time 04/25/19 11:21:00 Stop Time 04/25/19 17:43:00 Surgery / Procedure Times Start Time 04/25/19 12:05:00 Stop Time 04/25/19 17:29:00 Last Modified By: Lida Mitchell RN 04/25/19 17:43:33 [facility] Intra[facility] Case Times Audit 04/25/19 17:43:33 Hand Loom Weaver: [id number] Modifier: [id number] <+> 1 Out Room Time <+> 1 Stop Time <+> 1 Stop Time [facility] IntraOp Cautery Entry 1 Entry 2 ESU Identification Cautery Type Monopolar ESU BiPolar ESU Cautery Type Comments ID Number [id number] ID Type Hospital Number Hospital Number Cautery [...] Teresa A, RN 04/25/19 12:24:11 04/25/19 12:25:58 [facility] IntraOp Cautery Audit 04/25/19 12:25:58 Hand Loom Weaver: [id number] Modifier: [id number] <+> 2 Cautery Type <+> 2 Coag Setting <+> 2 Cut Setting <+> 2 ID Number <+> 2 ID Type [facility] IntraOp Communication Entry 1 Entry 2 Entry [...] Modified By: Lida Mitchell RN 04/25/19 16:58:34 [facility] IntraOp Communication Audit 04/25/19 16:58:34 Hand Loom Weaver: [id number] Modifier: [id number] <*> Comment CLOSING 04/25/19 16:33:59 Hand Loom Weaver: [id number] Modifier: [id number] <+> 3 Communication By <+> 3 Date and Time <+> 3 Communication To <+> 3 Comment <+> 4 Communication By <+> 4 Date and Time <+> 4 Communication To <+> 4 Comment 04/25/19 13:43:33 Hand Loom Weaver: [id number] Modifier: [id number] <+> 2 Communication By <+> 2 Date and Time <+> 2 Communication To <+> 2 Comment [facility] IntraOp Counts Verification Entry 1 Procedure Lumbar Laminectomy Count Info Count Type Sponge, Sharps, Miscellaneous Counts Verification Baseline/pre-procedure Sequence Counts Performed By Count Performed By JACKSON PATTERSON ST (Scrub) Count Performed By Lida Mitchell RN (RN) Last Modified By: Lida Mitchell RN 04/25/19 12:07:52 [facility] IntraOp Counts Final Entry 1 Procedure Lumbar Laminectomy Final Count Info Count Type Sponge, Sharps, Miscellaneous Counts Verification Skin Closure/end of Sequence procedure Count Results Correct, surgeon notified Counts Performed By Count Performed By JACKSON PATTERSON ST (Scrub) Count Performed By Lida Mitchell RN (RN) Last Modified By: Lida Mitchell RN 04/25/19 17:43:58 [facility] IntraOp Counts Final Audit 04/25/19 17:43:58 Hand Loom Weaver: [id number] Modifier: [id number] Entry 1 was deleted. Higher numbered entries shifted one position to fill the gap. <-> 1 Procedure Lumbar Laminectomy <-> 1 Count Type Sponge, Sharps, Miscellaneous <-> 1 Count Results Correct, surgeon notified <-> 1 Count Performed By (Scrub) JACKSON PATTERSON ST <-> 1 Count Performed By (RN) Lida Mitchell RN <-> 1 Counts Verification Sequence 04/25/19 17:43:46 Hand Loom Weaver: [id number] Modifier: [id number] <+> 2 Procedure <+> 2 Count Type <+> 2 Count Results <+> 2 Count Performed By (Scrub) <+> 2 Count Performed By (RN) <+> 2 Counts Verification Sequence [facility] IntraOp Cultures and Spec Summary Entry 1 Cultrures and Specimens Specimen Ordered: Yes Test(s) Frozen Requested/Final Section(s)/Path-Lab Disposition Last Modified By: Lida Mitchell RN 04/25/19 17:43:50 General Comments: A. NEOPLASM OF SPINE B. SONAPET CONTENTS C. CAUDA EQUINA TUMOR [facility] IntraOp Cultures and Spec Summary Audit 04/25/19 17:43:50 Hand Loom Weaver: [id number] Modifier: [id number] <*> Specimen Ordered: [facility] IntraOp Departure from OR Entry 1 Integumentary Assessment Integumentary WDL Assessment WDL Transfer/Handoff Transfer to PACU Phase I Handoff Method Phone call Post-op Transport Stretcher/Gurtessa Via Patient Transport AISHA MONAHAN, Accompanied by ASHER JENKINS, Vu Moore, MARY Last Modified By: Lida Mitchell RN 04/25/19 12:26:34 [facility] IntraOp Dressing and Packing Entry 1 Type Dressing Location OPSITE Wound Dressing Item Occlusive dressing Applied By ALICE MAR PA-INT Last Modified By: Lida Mitchell RN 04/25/19 12:27:03 [facility] IntraOp Fire Risk Assessment Entry 1 Fire [...] Modified By: Lida Mitchell RN 04/25/19 12:27:34 [facility] IntraOp General Case Office Aide 1 Case Information OR OR 09 [facility] Case Level 1 Room Verified Yes Wound Class I - Clean Specialty SN Neurosurgery ASA Class 3 Diagnosis 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 Postop Same As Preop No Postop Diagnosis SEE MD POST OP NOTE Last Modified By: Lida Mitchell RN 01/24/20 12:33:13 [facility] IntraOp Implant Log Entry 1 Type Implant (Synthetic) Implant Log Implant Type Mesh Implant GRAFT MATRIX DURA Identification [id number] Description Implant Quantity 1 Implant Site OPSITE Implant [id number] Identification Lot Number Implant Med[employer]onic Surgical Identification Navigation Jacquard Loom Weaver Name: Implant [id number] Identification Catalog Number Implant Has an Yes Expiration Date Implant Expiration 05/30/21 Date Tissue Implant Last Modified By: Lida Mitchell RN 04/25/19 16:47:01 [facility] IntraOp Intraoperative Assessment Entry 1 Handoff Reported [...] Modified By: Lida Mitchell RN 04/25/19 12:34:19 [facility] IntraOp Intraoperative Assessment Audit 04/25/19 12:34:19 Hand Loom Weaver: [id number] Modifier: [id number] <*> Present Upon Arrival to OR IVs [facility] IntraOp Intraoperative Equipment Entry 1 Type Equipment Equipment Equipment Ambreen Suction System Setting 200MMHG Intraop Monitoring Electrocardiogram Five lead placement (ECG) Electrode Placement Blood Pressure Arterial Pressure Line Source Pulse Oximeter Hand, left Probe Site Antiembolic Devices Antiembolic Devices Sequential compression device, knee high Antiembolic Device Bilateral Location Scopes Photo/Video Documentation Photo No Video No Last Modified By: Lida Mitchell RN 04/25/19 12:39:08 [facility] IntraOp Medication Admin Entry 1 Entry 2 Entry 3 Medication/Irrigant neomycin/bacitracin/poly thrombin 5,000 unit pwd FLSEAL VHSD FULL mixin 15 gm oint STRLPREP [id number] Combo Med List Time Administered Route of TOPICAL TOPICAL TOPICAL Administration Dose Dose 1 5000 10 Unit of Measure pkt units ml Volume Administered By YARELI MAR ROBERT D, MD-U MELIZA DOWNS MD-DAHLIA SLAUGHTER-INT Procedure Irrigation Irrigant Volume In Irrigant Volume Out Last Modified By: Lida Mitchell RN Burdine, Teresa A, RN Burdine, Teresa A, RN 04/25/19 12:40:31 04/25/19 12:40:31 04/25/19 13:01:17 Entry 4 Entry 5 Medication/Irrigant SEALANT DURASL SPINE FLSEAL SD FULL [id number] STRLPREP [id number] Combo Med List Time Administered Route of TOPICAL TOPICAL Administration Dose Dose 5 10 Unit of Measure ml ml Volume Administered By MELIZA DOWNS MD-SNU OWEN, ROBERT D, MD-SNU Procedure Irrigation Irrigant Volume In Irrigant Volume Out Last Modified By: Lida Mitchell RN Burdine, Teresa A, RN 04/25/19 13:47:01 04/25/19 16:58:55 [facility] Intra[facility] Medication Admin Audit 04/25/19 16:58:55 Hand Loom Weaver: [id number] Modifier: [id number] <+> 5 Medication/Irrigant <+> 5 Route of Administration <+> 5 Administered By <+> 5 Dose <+> 5 Unit of Measure 04/25/19 13:47:01 Hand Loom Weaver: [id number] Modifier: [id number] <+> 4 Medication/Irrigant <+> 4 Route of Administration <+> 4 Administered By <+> 4 Dose <+> 4 Unit of Measure 04/25/19 13:01:17 Hand Loom Weaver: [id number] Modifier: [id number] <+> 3 Medication/Irrigant <+> 3 Route of Administration <+> 3 Administered By <+> 3 Dose <+> 3 Unit of Measure [facility] IntraOp Patient Positioning Entry 1 Procedure Lumbar [...] Lida Mitchell RN, ARYAN TIRADO RN, ALICE MAR, ASHER, Vu Moore CRNA Position Verified Positioning Yes Verified by Anesthesia Positioning Yes Verified by Surgeon Last Modified By: Lida Mitchell RN 04/25/19 12:43:00 [facility] Intra[facility] Sign In Entry 1 Patient, Site, [...] Modified By: Lida Mitchell RN 04/25/19 12:43:17 [facility] Intra[facility] Sign Out Entry 1 RN Confirmation [...] Modified By: Lida Mitchell RN 04/25/19 17:44:08 [facility] Intra[facility] Sign Out Audit 04/25/19 17:44:08 Hand Loom Weaver: [id number] Modifier: [id number] <+> 1 RN Sign Out Signature Date/Time [facility] IntraOp Skin Prep Entry 1 Procedure Lumbar Laminectomy Prescribed Yes Pre-Surgical Prep Completed Prep Area OPSITE Intraop Prep Integumentary WDL Assessment WDL Prep Agents Chloraprep Prep by Lida Mitchell RN Hair Removal Methods No hair removal performed Last Modified By: Lida Mitchell RN 04/25/19 12:44:40 [facility] IntraOp Surgical Procedures Entry 1 Procedure Lumbar Laminectomy Additional (LUMBAR LAMINECTOMY Procedure WITH RESECTION Description /DEBULKING OF INTRA DURAL CAUDE EQUINA TUMOR) Primary Procedure Yes Primary Surgeon MELIZA DOWNS MD-SNU Start 04/25/19 12:05:00 Stop 04/25/19 17:29:00 Anesthesia Type General Specialty SN Neurosurgery Wound Class I - Clean Last Modified By: Lida Mitchell RN 04/25/19 17:44:10 [facility] IntraOp Surgical Procedures Audit 04/25/19 17:44:10 Hand Loom Weaver: [id number] Modifier: [id number] <+> 1 Stop [facility] IntraOp Temp Regulation Devices Entry 1 Temp Regulation Temperature Forced Air Warming Regulation Device device, Warm blankets Temperature Upper body Regulation Site Temperature Device 43 Setting Temperature Oscar, Vu, LINE DECORATOR Regulation Device Applied by Temperature PATIENT'S TEMPERATURE Regulation Comment MONITORED BY ANESTHESIA Last Modified By: Lida Mitchell RN 04/25/19 12:45:34 [facility] IntraOP Time Out Entry 1 Procedure to [...] Modified By: Lida Mitchell RN 04/25/19 12:05:42 [facility] Intra[facility] X-Ray and Images Entry 1 X-Ray/Imaging Type Fluoroscopy Fluoroscopy Type C-Arm Site OPSITE [id number] Application Developer Name Ev Toro RN-Educator I Protective Devices Yes Used Last Modified By: Lida Mitchell RN 04/25/19 12:52:48 Case Comments <None> Finalized By: PRIYANKA CLAYTON Document Signatures Signed By: Lida Mitchell RN 04/25/19 17:44 PRIYANKA CLAYTON/26/20 12:47 Unfinalized History Date/Time Username Reason for Unfinalizing Freetext Reason for Unfinalizing 04/27/19 12:36 ALLISON Correct Billing documented in this encounter Plan of Treatment Not on file documented as of this encounter Visit Diagnoses Not on filedocumented in this encounter
--- OUTSIDE RECORDS SUMMARY | 2024-11-10 09:57 | XMS_ITS | Clinical Summary ---
Author Organization [facility] Address [address] [place] [id number] Care Team Providers Care Institutional Research Coordinator Name Role Phone Danelle Lennon APRN Primary Care Provider [phone] Allergies Active Allergy Reactions Criticality Noted Date Comments Iain Inhibitors Cough Low 08/10/2015 Amlodipine Diarrhea Low 08/10/2015 Beta Adrenergic Blockers Rash Low 08/10/2015 Cyclobenzaprine Rash Low 08/10/2015 Hydrochlorothiazide Rash Low 08/10/2015 Losartan Potassium-Hctz Rash Low 08/10/2015 Empagliflozin Rash Low 09/05/2021 Latex Rash Low 08/10/2015 Losartan Rash Low 08/10/2015 Penicillins Rash Low 08/10/2015 Pioglitazone Rash Low 08/10/2015 Spironolactone Rash Low 08/10/2015 Statins Cough 06/04/2023 Medications furosemide (LASIX) 20 MG tablet Take 1 tablet by mouth As Needed. Active bethanechol (URECHOLINE) 50 MG tablet Take 1 tablet by mouth 2 (Two) Times a Day. 06/27/19 20 Active docusate sodium (COLACE) 100 MG capsule Take 1 capsule by mouth 2 (Two) Times a Day. Active metoclopramide (REGLAN) 5 MG tablet Take 1 tablet by mouth 3 (Three) Times a Day. 04/06/19 21 Active Insulin Lispro, 1 Unit Dial, (HumaLOG KwikPen) 100 UNIT/ML solution pen-injectorIndica tions:Uncontrolled type 2 diabetes mellitus with hyperglycemia Take 16 units before meals, correction 2:50 >150, MDD 60U 54 mL 1 07/27/19 22 Active Additional Information Patient taking differently: As Needed, Take 16 units before meals, correction 2:50 >150, MDD 60U, Reported on 07/29/2024 Insulin Pen Needle 32G X 4 MM miscIndications:Un controlled type 2 diabetes mellitus with hyperglycemia Use daily with insulin up to 6 times per day 600 each 10/03/19 23 Active Continuous Blood Gluc Transmit (Dexcom G6 Transmitter) miscIndications:Co ntrolled 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, with long-term current use of insulin USE DAILY 1 each 04/12/19 24 Active traZODone (DESYREL) 50 MG tabletIndications: Primary insomnia TAKE 1 TO 2 TABLETS BY MOUTH AT BEDTIME NEEDED 180 tablet 04/12/19 24 Active topiramate (TOPAMAX) 50 MG tabletIndications: Chronic migraine without aura without status migrainosus, not intractable TAKE 1 TABLET BY MOUTH DAILY NEEDED (MIGRAINE) 90 tablet 04/12/19 24 Active rOPINIRole (REQUIP) 1 MG tabletIndications: RLS (restless legs syndrome) TAKE 1 TABLET BY MOUTH AT NIGHT TAKE 1 HOUR BEFORE BEDTIME 90 tablet 04/24/19 24 Active HYDROcodone-acetam inophen (NORCO) 5-325 MG per tablet Take by mouth See Admin Instructions. Take 1 tablet by mouth every 4-6 hours as needed for pain 05/14/19 24 Active POTASSIUM PO Take 1 tablet by mouth Daily. Active Continuous Blood Gluc Sensor (Dexcom G6 Sensor)Indications :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, with long-term current use of insulin Use Every 10 (Ten) Days. 9 each 05/30/19 24 Active Insulin Glargine (LANTUS SOLOSTAR) 100 UNIT/ML injection penIndications:Con trolled 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, with long-term current use of insulin Inject 68 Units under the skin into the appropriate area as directed Daily. Disp quant suff 45 mL 05/30/19 24 Active NIFEdipine XL (PROCARDIA XL) 90 MG 24 hr tabletIndications: Primary hypertension Take 1 tablet by mouth Daily. 90 tablet 05/30/19 24 Active donepezil (Aricept) 5 MG tabletIndications: Memory change Take 1 tablet by mouth Every Night. 90 tablet 05/30/19 24 Active desvenlafaxine (PRISTIQ) 50 MG 24 hr tabletIndications: Anxiety and depression Take 1 tablet by mouth Daily. 90 tablet 1 05/30/19 24 Active pitavastatin calcium (Livalo) 1 MG tablet tabletIndications: Mixed hyperlipidemia Take 1 tablet by mouth Every Night. 30 tablet 2 06/19/19 24 Active traMADol (ULTRAM) 50 MG tabletIndications: Postlaminectomy syndrome of lumbar region,Herniated lumbar intervertebral disc Take 1 tablet by mouth Every 8 (Eight) Hours As Needed for Moderate Pain. 90 tablet 1 07/27/19 24 Active losartan (COZAAR) 100 MG tabletIndications: Primary hypertension Take 1 tablet by mouth Daily. 90 tablet 1 09/03/19 24 Active omeprazole (priLOSEC) 40 MG capsule TAKE 1 CAPSULE BY MOUTH DAILY 90 capsule 1 10/01/19 24 Active ezetimibe (ZETIA) 10 MG tabletIndications: Mixed hyperlipidemia TAKE 1 TABLET BY MOUTH DAILY 90 tablet 3 12/14/19 24 Active Active Problems Problem Noted Date Diagnosed Date Type 2 diabetes mellitus wit h hyperglycemia, with long-term current use of insulin 06/17/2024 Assessment & Plan (07/29/2024 12:06 PM EDT): Diabetes is slightly improved, but still unstable and not at goal. Blood glucose average over the last 14 days has been 195 -choice of medications is limited- intolerant to metformin, actos (rash), no GLP1 agonist due to gastroparesis, did not tolerate jardiance Complicated by gastroparesis Patient advised to: Increase lantus to 80 units, increase by 2 units every 2 days until fasting is less than 110 every morning Continue breakfast at 10 units Increase lunch to 24 units Increase evening meal to 36 units Start Farxiga and bring bottle to next visit, so I can verify dose Assessment & Plan (06/18/2024 8:16 AM EDT): Diabetes is worsening recently with A1c uncontrolled a few weeks ago with pcp of above 8 -choice of medications is limited- intolerant to metformin, actos (rash), no GLP1 agonist due to gastroparesis, did not tolerate jardiance Complicated by gastroparesis Patient advised to: Increase lantus to 70 units daily Take 10 units before breakfast, 22 units before lunch, 30 units before evening meal Only take sliding scale if greater than 300 three hours after taking short acting insulin If you forget insulin take half of the dose of what you should have taken before eating Call to request dexcom review in two weeks Statin intolerance 05/30/2023 Gastroparesis 12/22/2022 Assessment & Plan (06/18/2024 8:19 AM EDT): Complicates care plan 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 type 2 diabetes mellitus 07/28/2021 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 Battery end of life of spinal cord stimulator Obstructive sleep apnea, adult 12/02/2018 Encounter for fitting and ad justment of neuropacemaker of spinal cord 12/02/2018 Steatosis of liver 12/27/2017 Controlled type 2 diabetes m ellitus with stable proliferative retinopathy of both eyes, with long-term current use of insulin 05/22/2017 Primary hypertension 10/28/2015 Assessment & Plan (07/29/2024 12:00 PM EDT): Stable but not at goal of 120/70 Continue to monitor as patient is having cardiology workup and medications are changing frequently May need titration in the future if not controlled by her new medications Assessment & Plan (11/20/2016 11:18 AM EDT): Hypertension is unchanged. Medication changes per orders. Blood pressure will be reassessed in 4 weeks. Myofascial pain syndrome 10/28/2015 Postlaminectomy syndrome of lumbar region 2015 Meningeal adhesions/lumbar arachnoiditis 016 Lumbar facet arthropathy/lum bar spondylosis without myelopathy 10/14/2015 Sacroiliac joint dysfunction of left side 2015 Insomnia 10/14/2015 History of migraine headaches 10/14/2015 Anxiety and depression 10/06/2015 Mixed hyperlipidemia 10/06/2015 Herniated lumbar intervertebral disc 10/06/2015 Vaginal atrophy 10/06/2015 Resolved Problems Problem Noted Date Diagnosed Date Resolved Date Erythrocytosis 08/20/2019 09/05/2021 Elevated liver enzymes 12/18/201702/27 Pain of upper abdomen 12/18/20172021 Migraine headache 10/28/2015 05/23/2016 Palpitations 10/28/2015 05/23/2016 Obesity with sleep apnea 10/14/201508/2021 Assessment & Plan (05/09/2017 12:22 PM EST): Does not wear mask, does wear bite guard she got from the dentist. We have talked about the relationship between untreated apnea and high b/p Physical deconditioning 10/14/201505/04 Moderate obesity 10/14/2015 09/05/2021 Complication of device 10/06/201510/13 Fatigue 10/06/2015 05/30/2023 Leukocytes in urine 10/06/2015 10/20/19 20 Immunizations Immunization Administration Dates Next Due FluMist 2-49yrs 01/31/2013 Fluzone (or Fluarix & Flulav al for VFC) >6mos 12/08/2016,01/28/2016 Fluzone High-Dose 65+yrs 02/27/2023 Fluzone Quad >6mos (Multi-dose) 12/08/2016 Hepatitis B 11/12/2018,06/10/2018,05/13/2018 11/10/2018 Influenza Injectable Mdck Pf Quad 02/08/2018 Pneumococcal Polysaccharide (PPSV23) 05/08/2016 Tdap 05/07/2015 Family History Medical History Relation Name Comments Lung disease Father trauma Kidney failure Maternal Grandmother Hypertension Mother Kidney disease Mother Kidney failure Mother Peripheral vascular disease Mother Ulcers Mother Diabetes Other type 2 Breast cancer Neg Hx Colon cancer Neg Hx Ovarian cancer Neg Hx Relation Name Status Comments Father trauma Bullous Maternal Grandmother Mother Other Social History Tobacco Use Types Packs/Day Years Used Date Smoking Tobacco: Never Passive Smoke Exposure: Never Smokeless Tobacco: Never Tobacco Cessation:Counseling Given: [...] Sign Reading Time Taken Comments Blood Pressure 134/76 07/29/2024 11:14 AM EDT Pulse 96 07/29/2024 11:14 AM EDT Temperature 36.5 C (97.7 F) 05/30/2023 10:20 AM EST Respiratory Rate 16 05/30/2023 10:20 AM EST Oxygen Saturation 97% 07/29/2024 11:14 AM EDT Inhaled Oxygen Concentration - - Weight 83.9 kg (185 lb) 07/29/2024 11:14 AM EDT Height 158.8 cm (5' 2.5 ) 07/29/2024 11:14 AM ED T Body Mass Index 33.3 07/29/2024 11:14 AM EDT Plan of Treatment Health Maintenance Due Date Last Done Comments DXA SCAN 1956 COLOGUARD 2001 COLON CANCER SCREENING 5 BRYANNA [address] SIG[address] COLONOGRAPHY 2001 FECAL OCCULT BLOOD TEST 2001 FIT Testing (1 year) 2001 ZOSTER VACCINE (1 of 2) 2006 DIABETIC EYE EXAM 06/23/2022 06/23/2021, , 11/13/2019, Additional history exists DIABETIC FOOT EXAM 07/26/2022 07/26/2021, 0 04/25/2021, 04/25/2021, Additional history exists HEMOGLOBIN A1C 11/28/2023 05/30/2023, 02/01, 11/27/2022, Additional history exists COVID-19 Vaccine (1 - 2023-2 5 season) 2023 ANNUAL WELLNESS VISIT 02/28/2024 02/27/2023 , 02/17/2022, 11/09/2020, Additional history exists LIPID PANEL 05/30/2024 05/30/2023, 02/01, 05/22/2022, Additional history exists INFLUENZA VACCINE 12/31/2024 02/19/2024, , 02/08/2018, Additional history exists TDAP/TD VACCINES (2 - Td or Tdap) 05/07/2025 016 URINE MICROALBUMIN-CREATININ E RATIO (uACR) 06/17/2025 06/17/2024, 04/25/2021, 05/17/2020, Additional history exists MAMMOGRAM 07/14/2025 07/14/2024, 05/31, 09/28/2021, Additional history exists COLONOSCOPY 08/19/2028 08/20/2023, 05/03, 07/28/2014 COLORECTAL CANCER SCREENING 08/19/2028 HEPATITIS C SCREENING Completed 11/08/2023, 018 Pneumococcal Vaccine 50+ Completed 02/19/2024, 08/2016 Procedures Procedure Name Priority Date/Time Associated Diagnosis Comments MAMMO SCREENING DIGITAL TOMOSYNTHESIS BILATERAL W CAD Routine 07/14/2024 2:34 PM EDT Visit for screening mammogram MICROALBUMIN / CREATININE URINE RATIO Routine 06/17/2024 3:48 PM EDT DM type 2, not at goal SCANNED - COLONOSCOPY 08/20/2023 HEMOGLOBIN A1C Routine 05/30/2023 10:50 AM EST 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, with long-term current use of insulin LIPID PANEL Routine 05/30/2023 10:50 AM EST Mixed hyperlipidemia SCANNED - EYE EXAM 06/23/2021 HEPATITIS PANEL, ACUTE Routine 12/26/2017 2:04 PM EDT Elevated liver enzymes Pain of upper abdomen from Last 3 Months or Most Recently Relevant to Health Maintenance Results * Mammo Screening Digital Tomosynthesis Bilateral With CAD (07/14/2024 2:34 PM EDT) Anatomical Region Laterality Modality Breast N/A Mammography 07/17/2024 3:14 PM EDT Impressions 07/17/2024 3:18 PM EDT No mammographic findings suspicious for malignancy. RECOMMENDATION: Continue annual screening mammography. BI-RADS CATEGORY 1, NEGATIVE. CAD was utilized. The standard false-negative rate of mammography is between 10% and 25%. Complex patterns or increased breast density will markedly elevate the false-negative rate of mammography. A letter, in lay terminology, with the results of this exam will be mailed to the patient. 07/17/2024 3:[address] Jaylin Cheney MD on Narrative 07/17/2024 3:18 PM EDT BILATERAL SCREENING MAMMOGRAM WITH TOMOSYNTHESIS: HISTORY: The patient has no personal history or significant family history of breast cancer and no focal breast complaints at the time of screening mammography. TECHNIQUE: Bilateral CC and MLO low dose, full field digital mammographic images were obtained with tomosynthesis. COMPARISON: 06/12/2023, 09/28/2021, 01/21/2020, 01/14/2019, 01/03/2019 FINDINGS: There are scattered areas of fibroglandular density. The fibroglandular pattern is stable. There are no suspicious masses, worrisome calcifications, nonsurgical areas of architectural distortion, or other secondary signs of malignancy. Danelle Lennon APRN IMG MAMMOGRAPHY ORDERABLES F inal Result * Microalbumin / Creatinine Urine Ratio - Urine, Clean Catch (06/17/2024 3:48 PM EDT) Microalbumin/C reatinine Ratio 11.5 0.0 - 29.0 mg/g 06/18/2024 12:51 AM EDT [facility] Creatinine, Urine 113.4 mg/dL 06/18/2024 12:51 AM EDT [facility] Microalbumin, Urine 1.3 mg/dL 06/18/2024 12:51 AM EDT [facility] Urine Urine specimen obtained by clean catch procedure / Unknown Collection / Unknown 06/17/2024 3:48 PM EDT 06/17/2024 3:48 PM EDT Bridget VILLAGOMEZ-C URINE ORDERABLES Final Resu lt [facility]
[address] [place] [address], * Colonoscopy, Scan (08/20/2023) us Alex Davis MD CHART REVIEW TABS Final Resu lt * (ABNORMAL) Hemoglobin A1c (05/30/2023 10:50 AM EST) Hemoglobin A1C 7.00(H) 4.80 - 5.60 % [facility] Comment: Hemoglobin A1C Ranges: Increased Risk for Diabetes 5.7% to 6.4% Diabetes >= 6.5% Diabetic Goal < 7.0% Blood 05/30/2023 10:5 0 AM EST 05/30/2023 Narrative [facility] ([facility]) - 05/31/2023 3:08 AM EST Performed at: [address] [place] [id number] Chief Controller Center: Lane Haile MD, Phone: [phone] Patient Fasting: Y us Alex Davis MD LAB BLOOD ORDERABLES Final Resu lt [facility] ([facility]UL[facility]) [address] [place] [id number], [facility] [address] [place] [address], [place] [phone] * (ABNORMAL) Lipid Panel (05/30/2023 10:50 AM EST) Total Cholesterol 206(H) 0 - 200 mg/dL [facility] Comment: Cholesterol Reference Ranges (U.S. Department of Health and Human Services ATP III Classifications) Desirable <200 mg/dL Borderline High 200-239 mg/dL High Risk >240 mg/dL Triglyceride Reference Ranges (U.S. Department of Health and Human Services ATP III Classifications) Normal <150 mg/dL Borderline High 150-199 mg/dL High 200-499 mg/dL Very High >500 mg/dL HDL Reference Ranges (U.S. Department of Health and Human Services ATP III Classifications) Low <40 mg/dl (major risk factor for CHD) High >60 mg/dl ('negative' risk factor for CHD) LDL Reference Ranges (U.S. Department of Health and Human Services ATP III Classifications) Optimal <100 mg/dL Near Optimal 100-129 mg/dL Borderline High 130-159 mg/dL High 160-189 mg/dL Very High >189 mg/dL Triglycerides 174(H) 0 - 150 mg/dL [facility] HDL Cholesterol 48 40 - 60 mg/dL [facility] VLDL Cholesterol Bill 31 5 - 40 mg/dL [facility] LDL Chol Calc (NIH) 127(H) 0 - 100 mg/dL [facility] Blood 05/30/2023 10:5 0 AM EST 05/30/2023 Narrative [facility] ([facility]) - 05/31/2023 3:08 AM EST Performed at: [address] [place] [id number] Chief Controller Center: Lane Haile MD, Phone: [phone] Patient Fasting: Y Alex Davis MD LAB BLOOD ORDERABLES Final Resu lt [facility] ([facility]) [address] [place] [address], [facility] [address] [place] [address], [place] [phone] * SCANNED - EYE EXAM (06/23/2021) Anatomical Region Laterality Modality Other Roc Tracey PA-C CHART REVIEW TABS Final Result * Hepatitis Panel, Acute (12/26/2017 2:04 PM EDT) Hepatitis B Surface Ag Non-Reacti ve Non-Reacti ve 12/26/2017 7:06 PM EDT [facility] Hep A IgM Non-Reacti ve Non-Reacti ve 12/26/2017 7:06 PM EDT [facility] Comment:Results may be false ly decreased if patient taking Biotin. Hep B C IgM Non-Reacti ve Non-Reacti ve 12/26/2017 7:06 PM EDT [facility] Comment:Results may be false ly decreased if patient taking Biotin. Hepatitis C Ab Non-Reacti ve Non-Reacti ve 12/26/2017 7:06 PM EDT [facility] Blood Venipuncture / Unknown 12/26/2017 2:04 PM EDT 12/26/2017 2:04 PM EDT us Guerline Randall P[facility]ER MA[employer] LAB BLOOD ORDERABLES Final Res ult [facility]
[address] [place] [address], from Last 3 Months or Most Recently Relevant to Health Maintenance Insurance [facility] Medicare [employer] PPO Care Teams Institutional Research Coordinator Relationship Specialty Start Date End Date Danelle Lennon APRN [address] [place] [address] [place] [address] PCP - General Internal Medicine 06/18/24
== END 2024-11-07 23:59 | disposition home or self-care (01) ==
LOC: LAB.DROPOF 11-10 09:49
PROVIDERS: PCP Nurse Practitioner Family; Visit Provider Nurse Practitioner Family
DX: E03.9 Hypothyroidism, unspecified (principal); Z11.4 Encounter for screening for human immunodeficiency virus [HIV]; Z11.59 Encounter for screening for other viral diseases; E11.9 Type 2 diabetes mellitus without complications; E78.5 Hyperlipidemia, unspecified
CPT/HCPCS: 80053; 80061; 82043; 82570; 83036; 84443; 86803; 87389

== ENCOUNTER 2024-11-10 10:24 | Outpatient (CLI) | payer MEDICARE, SELFPAY ==
--- NOTE | 2024-11-10 10:27 | XR_ITS ---
FINAL REPORT CLINICAL HISTORY: Shortness of breath COMPARISON: 01/07/2024 FINDINGS: CHEST 2 VIEWS No acute pulmonary density is evident. There is no evidence of effusion or other pleural disease. The mediastinum has a normal appearance. The cardiac silhouette is unremarkable. IMPRESSION: Unremarkable chest exam. Reviewed, Interpreted and Dictated by Lise Schwartz MD Transcribed by Noemi Still Authenticated and [facility]
--- OUTSIDE RECORDS SUMMARY | 2024-11-10 10:27 | XMS_ITS | Encounter Summary ---
Author Organization [employer] ([place], [place], [place], [place]) Address [address] [place] [address] Care Team Providers Care Waste Handling Technician Name Role Phone Unavailable Primary Care Provider Unavailabl e Encounter Details Date Type Department Care Team (Late st Contact Info) Description 04/26/2019 Transcribed Document [facility] Radiology [address] [place] [address] ProviderLuciano MD Social History Tobacco [...] Note - [facility] Aiyana ProviderMD - 04/26/2019 6:00 AM EST [...]
--- OUTSIDE RECORDS SUMMARY | 2024-11-10 10:27 | XMS_ITS | Encounter Summary ---
Author Organization [facility] Address [address] [place] [address] Care Team Providers Care Ward Supervisor Name Role Phone Danelle Lennon APRN Primary Care Provider Encounter Details Date Type Department Care Team (Late st Contact Info) Description 06/20/2024 Results Follow-Up [facility] ENDOCRINOLOGY [facility] [address] Ad Mazariegos MD [address] [place] [address] Social History Tobacco Use Types Packs/Day Years [...] documented as of this encounter Care Teams Ward Supervisor Relationship Specialty Start Date End Date Danelle Lennon APRN [address] [place] [address] [place] [address] PCP - General Internal Medicine 06/18/24 documented as of this encounter
--- OUTSIDE RECORDS SUMMARY | 2024-11-10 10:27 | XMS_ITS | Encounter Summary ---
Author Organization [employer] ([place], [place], [place], [place]) Address [address] [place] [address] Care Team Providers Care Vp Product Name Role Phone Unavailable Primary Care Provider Unavailabl e Encounter Details Date Type Department Care Team (Late st Contact Info) Description 04/30/2019 Transcribed Document [facility] Neurology - [address] [facility] [address] [place] [id number] Lane Ortiz Jr., MD [facility] [place] [id number] Social History Tobacco Use Types Packs/Day Years [...] 100 mg= 2 Cap, Oral, TID Metamucil [place] Smooth Texture Sugar Free, 1 Packet, Oral, [...] Lymph # 1.50 x10(3)/uL 04/29/2019 09:11 EST [place] % 7.0 % 04/30/2019 03:51 EST [place] % 7.8 % 04/29/2019 09:11 EST [place] # 0.59 K/uL 04/30/2019 03:51 EST [place] # 0.71 K/uL 04/29/2019 09:11 EST [facility] [...]
--- OUTSIDE RECORDS SUMMARY | 2024-11-10 10:27 | XMS_ITS | Encounter Summary ---
Author Organization [employer] ([place], [place], [place], [place]) Address [address] [place] [address] Care Team Providers Care Field Handyman Name Role Phone Unavailable Primary Care Provider Unavailabl e Encounter Details Date Type Department Care Team (Late st Contact Info) Description 04/26/2019 Transcribed Document [facility] Radiology [address] [place] [address] Provider, Luciano Bronson MD Social [...] [facility] Aiyana ProviderMD - 04/26/2019 2:11 PM EST [facility] Authorization Entered On: 04/26/2019 13:11 EST Performed On: 04/26/2019 13:11 EST by BULMARO DUONG RN-Utilization Review Primary Insurance Authorization Authorization and Policy Numbers : Insurance 1 Health Plan: [employer] MED[employer] REPL Policy Number: [id number] Authorization Number: [id number] Insurance Primary Name : Mariela [id number] Authorization Status-Primary : Awaiting callback Authorization Number-Primary : [id number] Authorized Service Begin Date-Primary : 04/25/2019 EST Authorization Comments-Primary : clinicals faxed via [employer] for cont stay (only 1 day approved) Historical Authorization Comments-Primary : Comment 1: per [facility] inpt approved 1 day auth# [id number] (FRANCY MILIAN, Principal Investigator 04/24/2019 13:26) BULMARO DUONG, RN-Utilization Review - 04/26/2019 13:11 EST Electronically signed by Carito, [facility] Conversion Exercise Science Instructor Cerner at 08/23/2022 11:19 AM CDT documented in this encounter Plan of Treatment Not on file documented as of this encounter Visit Diagnoses Not on filedocumented in this encounter
--- OUTSIDE RECORDS SUMMARY | 2024-11-10 10:27 | XMS_ITS | Referral Summary ---
Author Organization [facility] ([place], [place], [place], [place]) Address [address] [place] [address] Care Team Providers Care Exhibit Preparator Name Role Phone Unavailable Primary Care Provider [...]
--- OUTSIDE RECORDS SUMMARY | 2024-11-10 10:27 | XMS_ITS | Encounter Summary ---
Author Organization [employer] ([place], [place], [place], [place]) Address [address] [place] [address] Care Team Providers Care Cath Laboratory Technician Name Role Phone Unavailable Primary Care Provider Unavailabl e Encounter Details Date Type Department Care Team (Late st Contact Info) Description 04/30/2019 Transcribed Document [facility] Radiology 1 [place] [address] Provider, Luciano Bronson MD Social History Tobacco Use Types Packs/Day Years Used Date Smoking Tobacco: Never Assessed Comments Unknown Sex and Gender Information Value Date Recorded Sex Assigned at Not on file Legal Sex Female 6:01 PM CDT Gender Identity Not on file Sexual Orientation Not on file documented as of this encounter Miscellaneous Notes * Cerner Conversion Note - [facility] Aiyana ProviderMD - 04/30/2019 8:06 AM EST UM Authorization Entered On: 04/30/2019 7:07 EST Performed On: 04/30/2019 7:06 EST by Dayna Rios, Music Composer Primary Insurance Authorization Authorization and Policy Numbers : Insurance 1 Health Plan: AETNA MEDICARE REPL Policy Number: [id number] Authorization Number: [id number] Insurance Primary Name : Tanya [id number] Authorization Status-Primary : Admit approved Authorization Number-Primary : [id number] Number of Days Authorized-Primary : 5 Day(s) Authorized Service Begin Date-Primary : 04/25/2019 EST Authorized Service End Date-Primary : 04/30/2019 EST Authorization Comments-Primary : Authorized per fax 04/29/2019 @ 1530. Approved x5 days (6 total: 04/25-04/30). Next review due on 05/01/2019. Tameka Davidson RN. Historical Authorization Comments-Primary : Comment 1: clinical faxed per cerner for 04/27 and 04/28 (Gali Newamn, Rn-Utilization Review 04/28/2019 15:19) Comment 2: call back from tameka lui with tanya requesting clinical be faxed to [phone]. clinical faxed per cerner (Gali Newman, Rn-Utilization Review 04/28/2019 15:17) Comment 3: lvm with brigette lui with tanya for c/s . acb (Gali Newman, Rn-Utilization Review 04/28/2019 13:51) Comment 4: clinicals faxed via cerner for cont stay (only 1 day approved) (BULMARO DUONG, RN-Utilization Review 04/26/2019 13:11) Comment 5: per [facility] inpt approved 1 day auth# [id number] (FRANCY MILIAN, Chainstitch Tunnel Elastic Operator 04/24/2019 13:26) Dayna Rios, Music Composer - 04/30/2019 7:06 EST documented in this encounter Plan of Treatment Not on file documented as of this encounter Visit Diagnoses Not on filedocumented in this encounter
--- OUTSIDE RECORDS SUMMARY | 2024-11-10 10:27 | XMS_ITS | Encounter Summary ---
Author Organization [employer] ([place], [place], [place], [place]) Address [address] [place] [address] Care Team Providers Care Casting Room Operator Name Role Phone Unavailable Primary Care Provider Unavailabl e Encounter Details Date Type Department Care Team (Late st Contact Info) Description 04/27/2019 Transcribed Document [facility] Radiology 1 [place] [address] ProviderLuciano MD Social History Tobacco [...] Conversion Note - [facility] Historical ProviderMD - 04/27/2019 3:00 AM EST Coil Binder Details Entered On: 04/27/2019 0:30 EST Performed [...] Daniela Buckner RN - 04/27/2019 0:30 EST Electronically signed by Luciano Arzate Conversion Service And Repair Supervisor Cerner at 08/23/2022 11:19 AM CDT documented in this encounter Plan of Treatment Not on file documented as of this encounter Visit Diagnoses Not on filedocumented in this encounter
--- OUTSIDE RECORDS SUMMARY | 2024-11-10 10:27 | XMS_ITS | Encounter Summary ---
Author Organization [employer] ([place], [place], [place], [place]) Address [address] [place] [address] Care Team Providers Care Slot Ambassador Name Role Phone Unavailable Primary Care Provider Unavailabl e Encounter Details Date Type Department Care Team (Late st Contact Info) Description 04/27/2019 Transcribed Document [facility] Radiology 1 [place] [address] Alverto Murphy MD [facility] [address] [address] Social History Tobacco Use Types [...]
--- OUTSIDE RECORDS SUMMARY | 2024-11-10 10:27 | XMS_ITS | Encounter Summary ---
Author Organization [employer] ([place], [place], [place], [place]) Address [address] [place] [address] Care Team Providers Care Craft Recruiter Name Role Phone Unavailable Primary Care Provider Unavailabl e Encounter Details Date Type Department Care Team (Late st Contact Info) Description 04/27/2019 Transcribed Document [facility] Radiology [address] [place] [address] Provider yvon Bronson MD Social [...] Cerner Conversion Note - [facility] Historical ProviderMD - 04/27/2019 6:00 PM EST Chart Check - Review Order Profile Entered On: 04/27/2019 18:57 EST Performed On: 04/27/2019 17:00 EST by SHAWNA WISE RN Chart Check Powerplans Initiated/Discontinued as Appropriate : Yes All Active Orders Reviewed : Yes SHAWNA WISE RN - 04/27/2019 18:57 EST Electronically signed by Carito [facility] Conversion Transit Mixer Operator Cerner at 08/23/2022 11:19 AM CDT documented in this encounter Plan of Treatment Not on file documented as of this encounter Visit Diagnoses Not on filedocumented in this encounter
--- OUTSIDE RECORDS SUMMARY | 2024-11-10 10:27 | XMS_ITS | Encounter Summary ---
[facility] Organization [facility] Address [address] [place] [address] Care Team Providers Care Faculty Instructor Name Role Phone Danelle Lennon APRN Primary Care Provider [phone] Encounter Details Date Type Department Care Team (Late st Contact Info) Description 06/18/2024 Results Follow-Up [facility] ENDOCRINOLOGY [address] [address] Bridget Valdez PA-C [address] [place] [address] Social History Tobacco Use Types Packs/Day Years [...] documented as of this encounter Care Teams Faculty Instructor Relationship Specialty Start Date End Date Danelle Lennon APRN [address] [place] [address] PCP - General Internal Medicine 06/18/24 documented as of this encounter
--- OUTSIDE RECORDS SUMMARY | 2024-11-10 10:27 | XMS_ITS | Encounter Summary ---
Author Organization [employer] ([place], [place], [place], [place]) Address [address] [place] [address] Care Team Providers Care Supervisor Meter Shop Name Role Phone Unavailable Primary Care Provider Unavailabl e Encounter Details Date Type Department Care Team (Late st Contact Info) Description 04/30/[address] [facility] Radiology [address] [place] [address] Karina Murphy MD [address] [place] [address] Social History Tobacco Use Types Packs/Day [...] incentive spirometer. says [facility] to go to [facility] HPI: 63 y/o WF admitted s/p [...] Results (Current Encounter/Past 24 Hours) Bun/Creatinine 32.0 OK 04/30/2019 05:35 Creatinine Level 0.50 mg/dL LOW 04/30/2019 05:35 eGFR NonAfrican >60 mL/min/1.73m2 04/30/2019 05:35 eGFR >60 mL/min/1.73m2 04/30/2019 05:35 Sodium Level 138 mmol/L 04/30/2019 05:35 Potassium Level 3.4 mmol/L LOW 04/30/2019 05:35 Chloride Level 107 mmol/L 04/30/2019 05:35 Carbon Dioxide Level 27 mmol/L 04/30/2019 05:35 Anion Gap 7 LOW 04/30/2019 05:35 Blood Urea Nitrogen 16 mg/dL 04/30/2019 05:35 Glucose Level 146 mg/dL OK 04/30/2019 05:35 Calcium Level 8.9 mg/dL 04/30/2019 05:35 Coagulation Results (Current Encounter/Past 24 Hours) No Coagulation Results Found (Past 24 Hours) Creatinine Clearance (Current Encounter/Past 24 Hours) Creatinine Level 0.50 mg/dL LOW 04/30/2019 05:35 Bun/Creatinine 32.0 OK 04/30/2019 05:35 Estimated Creatinine Clearance 92.27 mL/Min [...]
--- OUTSIDE RECORDS SUMMARY | 2024-11-10 10:27 | XMS_ITS | Encounter Summary ---
Author Organization [employer] ([place], [place], [place], [place]) Address [address] [place] [address] Care Team Providers Care Event Av Operator Name Role Phone Unavailable Primary Care Provider Unavailabl e Encounter Details Date Type Department Care Team (Late st Contact Info) Description 04/26/2019 Transcribed Document [facility] Radiology 1 [place] [address] ProviderLuciano MD Social History [...] Cerner Conversion Note - [facility] Aiyana ProviderMD - 04/26/2019 8:56 AM EST UM Authorization Entered On: 04/26/2019 7:57 EST Performed On: 04/26/2019 7:56 EST by BULMARO DUONG RN-Utilization Review Primary Insurance Authorization Authorization and Policy Numbers : Insurance 1 Health Plan: AETNA MEDICARE REPL Policy Number: [id number] Authorization Number: [id number] Insurance Primary Name : Mariela [id number] Authorization Status-Primary : Admit approved Authorization Number-Primary : [id number] Authorized Service Begin Date-Primary : 04/25/2019 EST Historical Authorization Comments-Primary : Comment 1: per [facility] inpt approved 1 day auth# [id number] (FRANCY MILIAN, Welder Plastic 04/24/2019 13:26) BULMARO DUONG RN-Utilization Review - 04/26/2019 7:56 EST Electronically signed by Luciano Arzate Conversion It Infrastructure Project Manager Cerner at 08/23/2022 11:18 AM CDT documented in this encounter Plan of Treatment Not on file documented as of this encounter Visit Diagnoses Not on filedocumented in this encounter
--- OUTSIDE RECORDS SUMMARY | 2024-11-10 10:27 | XMS_ITS | Encounter Summary ---
Author Organization [employer] ([place], [place], [place], [place]) Address [address] [place] [address] Care Team Providers Care Cabinetmaker Maintenance Name Role Phone Unavailable Primary Care Provider Unavailabl e Encounter Details Date Type Department Care Team (Late st Contact Info) Description 04/30/2019 Transcribed Document [facility] Neurology - [address] [facility] [address] [place] [address] Meliza Downs Jr., MD [address] [place], [place] [id number] Social History Tobacco Use Types Packs/Day Years [...]
--- OUTSIDE RECORDS SUMMARY | 2024-11-10 10:27 | XMS_ITS | Encounter Summary ---
Author Organization [employer] ([place], [place], [place], [place]) Address [address] [place] [address] Care Team Providers Care Arborist Representative Name Role Phone Unavailable Primary Care Provider Unavailabl e Encounter Details Date Type Department Care Team (Late st Contact Info) Description 04/26/2019 Transcribed Document [facility] Radiology 1 [place] [address] ProviderLuciano MD Social History Tobacco Use Types Packs/Day Years Used Date Smoking Tobacco: Never Assessed Comments Unknown Sex and Gender Information Value Date Recorded Sex Assigned at Not on file Legal Sex Female 6:01 PM CDT Gender Identity Not on file Sexual Orientation Not on file documented as of this encounter Miscellaneous Notes * Cerner Conversion Note - [facility] Aiyana ProviderMD - 04/26/2019 3:00 AM EST Salt Refiner Details Entered On: 04/26/2019 0:18 EST Performed [...]
--- OUTSIDE RECORDS SUMMARY | 2024-11-10 10:27 | XMS_ITS | Encounter Summary ---
Author Organization [employer] ([place], [place], [place], [place]) Address [address] [place] [address] Care Team Providers Care Condenser Operator Name Role Phone Unavailable Primary Care Provider Unavailabl e Encounter Details Date Type Department Care Team (Late st Contact Info) Description 04/26/2019 Transcribed Document [facility] Radiology [address] [place] [address] Provider, Luciano Bronson MD Social [...] [facility] Aiyana ProviderMD - 04/26/2019 3:20 PM EST [...] LUCIEN JAUN, OTR/L - 05/02/2019 15:28 EST Shelter Goals, OT Grooming LTG Grid Goal #1 [...] : pt to EOB supervision with leg elementary esl teacher. Sat unsupported. Given AE for LB dressing educated and demonstrated understanding. Pt educated on bathroom transfers, shower transfers, car transfers, toileting hygiene. Given tongs for toileting. Dicussed use of home bidet. Pt supervision to supine with leg elementary esl teacher. Assessment : pt has good understanding of [...]
--- OUTSIDE RECORDS SUMMARY | 2024-11-10 10:27 | XMS_ITS | Encounter Summary ---
Author Organization [employer] ([place], [place], [place], [place]) Address [address] [place] [address] Care Team Providers Care Brass Sorter Name Role Phone Unavailable Primary Care Provider Unavailabl e Encounter Details Date Type Department Care Team (Late st Contact Info) Description 05/01/[address] [facility] Radiology 1 [place] [address] Provider, Luciano Bronson MD Social History Tobacco Use Types Packs/Day Years Used Date Smoking Tobacco: Never Assessed Comments Unknown Sex and Gender Information Value Date Recorded Sex Assigned at Not on file Legal Sex Female 6:01 PM CDT Gender Identity Not on file Sexual Orientation Not on file documented as of this encounter Miscellaneous Notes * Cerner Conversion Note - [facility] Aiyana ProviderMD - 05/01/2019 12:50 PM [...] YOANNA GUERRERO, PT - 05/01/2019 11:50 EST Fdc Goals Mobility/Bed Mobility LTG PT Grid Goal [...]
--- OUTSIDE RECORDS SUMMARY | 2024-11-10 10:27 | XMS_ITS | Encounter Summary ---
Author Organization [employer] ([place], [place], [place], [place]) Address [address] [place] [address] Care Team Providers Care Ends Breakage Clerk Name Role Phone Unavailable Primary Care Provider Unavailabl e Encounter Details Date Type Department Care Team (Late st Contact Info) Description 04/15/2019 Transcribed Document [facility] Radiology [address] [place] [address] Provider, Luciano Bronson MD Social [...] - [facility] Aiyana ProviderMD - 04/15/2019 10:16 AM EST [...] Source : Measured Height Entry Format : [place] Height, Feet : 5 ft(Converted to: 152 cm, 60 Inch) Height, Inches : 2 Inch(Converted to: 0 ft 2 Inch, 5.08 cm) Clinical Height : 157.48 cm Weight Source : Standing scale Weight Entry Format : [place] Clinical Dosing Weight : 82.14 kg Weight, Pounds : 180.7 lb Body Surface Area (BSA) : 1.83 m2 Body Mass Index : 33.1 kg/m2 (HI) [place] Body Weight : 50 kg TIA SHARMA [...] TIA SHARMA RN - 04/15/2019 9:16 EST [place] Suicide Severity Rating Scale (C-SSRS) CSSRS Past [...] #2 Relationship : daughter Primary Language : Kazakh Preferred Communication Mode : Verbal Communication Barrier [...] 04/15/2019 9:16 EST Electronically signed by Carito [facility] Conversion Tanning Solution Maker Cerner at 08/23/2022 11:18 AM CDT documented in this encounter Plan of Treatment Not on file documented as of this encounter Visit Diagnoses Not on filedocumented in this encounter
--- OUTSIDE RECORDS SUMMARY | 2024-11-10 10:27 | XMS_ITS | Encounter Summary ---
[facility] Address [address] [place] [address] Care Team Providers Care Vault Keeper Name Role Phone Danelle Lennon APRN Primary Care Provider [phone] Reason for Visit * Reason Comments Med Refill Encounter Details Date Type Department Care Team (Late st Contact Info) Description 02/17/2023 Refill [facility] [address] [place] [address] Alex Davis MD [address] [place] [address] Postlaminectomy syndrome of lumbar region; [...] myelopathy documented in this encounter Care Teams Vault Keeper Relationship Specialty Start Date End Date Danelle Lennon APRN [address] [place] [address] [place] [address] PCP - General Internal Medicine 06/18/24 documented as of this encounter
--- OUTSIDE RECORDS SUMMARY | 2024-11-10 10:27 | XMS_ITS | Encounter Summary ---
Author Organization [employer] ([place], [place], [place], [place]) Address [address] [place] [address] Care Team Providers Care Cotton Inspector Name Role Phone Unavailable Primary Care Provider Unavailabl e Encounter Details Date Type Department Care Team (Late st Contact Info) Description 04/27/2019 Transcribed Document [facility] [address] [place] [address] ProviderLuciano MD Social History Tobacco Use Types Packs/Day Years Used Date Smoking Tobacco: Never Assessed Comments Unknown Sex and Gender Information Value Date Recorded Sex Assigned at Not on file Legal Sex Female 6:01 PM CDT Gender Identity Not on file Sexual Orientation Not on file documented as of this encounter Miscellaneous Notes * Cerner Conversion Note - [facility] Aiyana ProviderMD - 04/27/2019 6:51 AM EST Height and Weight, Routine Entered On: 04/27/2019 5:52 EST Performed On: 04/27/2019 5:51 EST by Prisca Stephenson Patient Director Of Special Events Height and Weight, Routine Routine Weight Source : Bed scale Routine Weight Entry Format : Metric Routine Weight, Kilograms : 86.5 kg(Converted to: 190 lb 11 oz) Routine Weight Calculation : 86.5 kg Height Source : Measured Height Entry Format : [place] Height, Feet : 5 ft Height, Inches : 2 Inch Clinical Height : 157.48 cm Body Surface Area (BSA), Routine : 1.87 m2 Body Mass Index (BMI), Routine : 34.88 kg/m2 Prisca Stephenson Patient Director Of Special Events - 04/27/2019 5:51 EST Electronically signed by Luciano Arzate Conversion Manager Of Organizational Development Cerner at 08/23/2022 11:18 AM CDT documented in this encounter Plan of Treatment Not on file documented as of this encounter Visit Diagnoses Not on filedocumented in this encounter
--- OUTSIDE RECORDS SUMMARY | 2024-11-10 10:27 | XMS_ITS | Encounter Summary ---
Author Organization [employer] ([place], [place], [place], [place]) Address [address] [place] [address] Care Team Providers Care Brush Maker Name Role Phone Unavailable Primary Care Provider Unavailabl e Encounter Details Date Type Department Care Team (Late st Contact Info) Description 05/01/2019 Transcribed Document [facility] Radiology [address] [place] [address] Karina Murphy MD [address] [place] [address] Social History Tobacco Use Types Packs/Day [...] 5 dayas before bladder training. Plan is [facility] placement today. No f'/c/s. No n/v/d. [...] Results (Current Encounter/Past 24 Hours) Bun/Creatinine 36.0 [place] 05/01/2019 05:26 Creatinine Level 0.50 mg/dL LOW 05/01/2019 05:26 eGFR NonAfrican >60 mL/min/1.73m2 05/01/2019 05:26 eGFR >60 mL/min/1.73m2 05/01/2019 05:26 Sodium Level 137 mmol/L 05/01/2019 05:26 Potassium Level 3.7 mmol/L 05/01/2019 05:26 Chloride Level 105 mmol/L 05/01/2019 05:26 Carbon Dioxide Level 28 mmol/L 05/01/2019 05:26 Anion Gap 8 LOW 05/01/2019 05:26 Blood Urea Nitrogen 18 mg/dL 05/01/2019 05:26 Glucose Level 152 mg/dL [place] 05/01/2019 05:26 Calcium Level 9.1 mg/dL 05/01/2019 05:26 Magnesium Level 2.3 mg/dL 04/30/2019 10:53 Coagulation Results (Current Encounter/Past 24 Hours) No Coagulation Results Found (Past 24 Hours) Creatinine Clearance (Current Encounter/Past 24 Hours) Creatinine Level 0.50 mg/dL [facility] 05/01/2019 05:26 Bun/Creatinine 36.0 [place] 05/01/2019 05:26 Labs Most Recent Last 28 [...] to atelectasis hypokalemia- improved post replacement. PLAN [facility] transfer today No further Potassium replacement [...]
--- OUTSIDE RECORDS SUMMARY | 2024-11-10 10:27 | XMS_ITS | Encounter Summary ---
Author Organization [employer] ([place], [place], [place], [place]) Address [address] [place] [address] Care Team Providers Care Office Machines Teacher Name Role Phone Unavailable Primary Care Provider Unavailabl e Encounter Details Date Type Department Care Team (Late st Contact Info) Description 05/01/2019 Transcribed Document [facility] Neurology - [address] [facility] [address] [place] [address] Lane Ortiz Jr., MD [facility] [place] [id number] Social History Tobacco Use Types Packs/Day Years [...] 100 mg= 2 Cap, Oral, TID Metamucil [place] Smooth Texture Sugar Free, 1 Packet, Oral, [...] Lymph # 1.90 x10(3)/uL 05/01/2019 03:10 EST [place] % 7.5 % 05/01/2019 03:10 EST [place] # 0.62 K/uL 05/01/2019 03:10 EST Eos [...]
--- OUTSIDE RECORDS SUMMARY | 2024-11-10 10:28 | XMS_ITS | Encounter Summary ---
Author Organization [employer] ([place], [place], [place], [place]) Address [address] [place] [address] Care Team Providers Care Band Bias Machine Operator Name Role Phone Unavailable Primary Care Provider Unavailabl e Encounter Details Date Type Department Care Team (Late st Contact Info) Description 04/28/2019 Transcribed Document [facility] Radiology [address] [place] [address] Provider, Luciano Bronson MD Social [...] Health Plan: AETNA MEDICARE REPL Policy Number: [id number] Authorization Number: [id number] Insurance Primary Name : Mariela [id number] Authorization Status-Primary : Awaiting callback Authorization Number-Primary : [id number] Authorized Service Begin Date-Primary : 04/25/2019 EST Historical Authorization Comments-Primary : Comment 1: clinicals faxed via [employer] for cont stay (only 1 day approved) (BULMARO DUONG, RN-Utilization Review 04/26/2019 13:11) Comment 2: per [facility] inpt approved 1 day auth# [id number] (FRANCY MILIAN, Physical Therapy Supervisor 04/24/2019 13:26) Gali Newman Rn-Utilization Review - 04/28/2019 9:32 EST Electronically signed by Carito, [facility] Conversion Well Drill Operator Rotary Drill Cerner at 08/23/2022 11:19 AM CDT documented in this encounter Plan of Treatment Not on file documented as of this encounter Visit Diagnoses Not on filedocumented in this encounter
--- OUTSIDE RECORDS SUMMARY | 2024-11-10 10:28 | XMS_ITS | Encounter Summary ---
Author Organization [employer] ([place], [place], [place], [place]) Address [address] [place] [address] Care Team Providers Care Aluminum Boats Assembler Name Role Phone Unavailable Primary Care Provider Unavailabl e Encounter Details Date Type Department Care Team (Late st Contact Info) Description 04/23/2019 Transcribed Document [facility] Radiology [address] [place] [address] Provider, Luciano Bronson MD Social [...] [facility] Aiyana ProviderMD - 04/23/2019 1:00 PM EST [facility] Main OR PACU Summary Primary Physician: MELIZA DOWNS MD-[facility] Finalized Date/Time: 04/23/19 18:34:36 Pt. Name: GERTRUDIS DALY /Sex: 1955 Female Med Rec #: [id number] Physician: MELIZA DOWNS MD-[facility] Financial #: [id number] Pt. Type: O Room/Bed: /24 Admit/Disch: 04/23/19 10:57:00 - 04/23/19 18:25:00 Institution: [facility] Main OR PACU I Case Times Entry 1 In PACU I 04/23/19 16:50:00 Ready for PACU 04/23/19 18:00:00 Discharge Discharge from PACU 04/23/19 18:03:00 I Last Modified By: Ev Parada RN 04/23/19 18:34:11 [facility] Main OR PACU I Case Times Audit 04/23/19 18:34:11 Gyn Physician: [id number] Modifier: [id number] <+> 1 Ready for PACU Discharge <+> 1 Discharge from PACU I Finalized By: Ev Parada RN Document Signatures Signed By: Ev Parada RN 04/23/19 18:34 Electronically signed by Carito [facility] Conversion Interventional Radiology Rn Cerner at 08/23/2022 11:19 AM CDT documented in this encounter Plan of Treatment Not on file documented as of this encounter Visit Diagnoses Not on filedocumented in this encounter
--- OUTSIDE RECORDS SUMMARY | 2024-11-10 10:28 | XMS_ITS | Encounter Summary ---
Author Organization [employer] ([place], [place], [place], [place]) Address [address] [place] [address] Care Team Providers Care Masonry Teacher Name Role Phone Unavailable Primary Care Provider Unavailabl e Encounter Details Date Type Department Care Team (Late st Contact Info) Description 04/28/2019 Transcribed Document [facility] Radiology [address] [place] [address] Provider, Luciano Bronson MD Social [...] - [facility] Aiyana ProviderMD - 04/28/2019 9:31 AM EST [...] with Hanna Murphy MD Electronically signed by [facility] Conversion Instructional Services Librarian Cerner at 08/23/2022 11:19 AM CDT documented in this encounter Plan of Treatment Not on file documented as of this encounter Visit Diagnoses Not on filedocumented in this encounter
--- OUTSIDE RECORDS SUMMARY | 2024-11-10 10:28 | XMS_ITS | Encounter Summary ---
Author Organization [employer] ([place], [place], [place], [place]) Address [address] [place] [address] Care Team Providers Care Wood Router Hand Name Role Phone Unavailable Primary Care Provider Unavailabl e Encounter Details Date Type Department Care Team (Late st Contact Info) Description 05/02/2019 Transcribed Document [facility] Radiology [address] [place] [address] Provider, Luciano Bronson MD Social [...] - [facility] Aiyana ProviderMD - 05/02/2019 1:41 PM EST Final Discharge Planning Entered On: 05/02/2019 12:43 EST Performed On: 05/02/2019 12:41 EST by ROMELIA MCADAMS RN-Time Analysis Clerk Final Discharge Planning Discharge Arrangements : Patient [...] Services (Related/SOC within 3 days)-06 ROMELIA MCADAMS, RN-Time Analysis Clerk - 05/02/2019 12:41 EST Final Narrative Note Final Narrative Note : Precrt denied for acute rehab at [facility]. PT dc'd pt yesterday stating she met all inpatient goals and ambulating 380ft. CM discussed with pt aND SPOUSE AT BEDSIDE.pT WILL LIKELY BE DENIED SUBACUTE WELL. tHEY AGREE TO GO HOME WITH hh FOR sn/pt/ot AND HAV NO PREFERENCE OF tail puller. Mattie WITH vna WAS ABLE TO PLACE PT WITH aMEDYSIS. FRW and BSC obtained from [employer] and have been delivered. No other CM need identified. ROMELIA MCADAMS RN-Time Analysis Clerk - 05/02/2019 12:41 EST documented in this encounter Plan of Treatment Not on file documented as of this encounter Visit Diagnoses Not on filedocumented in this encounter
--- OUTSIDE RECORDS SUMMARY | 2024-11-10 10:28 | XMS_ITS | Encounter Summary ---
Author Organization [employer] ([place], [place], [place], [place]) Address [address] [place] [address] Care Team Providers Care Clinical Associate Name Role Phone Unavailable Primary Care Provider Unavailabl e Encounter Details Date Type Department Care Team (Late st Contact Info) Description 04/28/2019 Transcribed Document [facility] Radiology [address] [place] [address] Provider, Luciano Bronson MD Social History Tobacco Use Types Packs/Day Years Used Date Smoking Tobacco: Never Assessed Comments Unknown Sex and Gender Information Value Date Recorded Sex Assigned at Not on file Legal Sex Female 6:01 PM CDT Gender Identity Not on file Sexual Orientation Not on file documented as of this encounter Miscellaneous Notes * Cerner Conversion Note - [facility] Aiyana ProviderMD - 04/28/2019 6:13 PM EST Initial Discharge Planning Entered On: 04/28/2019 17:18 EST Performed On: 04/28/2019 17:13 EST by ROMELIA MCADAMS RN-Soccer Referee Initial Assessment I Previously Documented Living Environment : No qualifying data available. Living Situation : Home Patient Lives With : Spouse Is the Patient a Caregiver at Home? : No Emergency Contact #1 : Michelle Gonzalez Emergency Contact #1 cell Emergency Contact #1 Relationship : Emergency Contact #2 : Kandi Javed Emergency Contact #2 cell Emergency Contact #2 Relationship : daughter ROMELIA MCADAMS, RN-Soccer Referee - 04/28/2019 17:13 EST Initial Assessment II Sensory and Motor Deficits : None ROMELIA MCADAMS RN-Soccer Referee - 04/28/2019 17:13 EST Discharge Needs I Anticipated Discharge Date : 04/30/2019 EST Anticipated Discharge To, CM : senior living facility Current Home Treatment/Equipment : Current Home Treatment/Equipment No qualifying data available. Documentation Status Complete : Yes ROMELIA MCADAMS RN-Soccer Referee - 04/28/2019 17:13 EST Discharge Needs II Professional Skilled Services : Professional Skilled Services No qualifying data available. Needs Assistance with Transportation : Maybe Discharge Options Discussed with Patient : Short term rehabilitation ROMELIA MCADAMS RN-Soccer Referee - 04/28/2019 17:13 EST Narrative Note Narrative Note : 63yo female pt s/p L3-5 lami with resection of cauda equina tumor. CBR except when working with PT/OT. Met with pt, spouse, and daughter at bedside during rounds to discuss DCP. They request rehab at [facility] as pt's sister works there. CM also gave list of SNF in [facility] and [facility] with quality and resource information in case no bed or not in contract/network with pt's payor source. Referral sent to [facility] via Tc and left message with liaison . NSY states pt will not be ready for dc for a couple more days. CM will follow. ROMELIA MCADAMS RN-Soccer Referee - 04/28/2019 17:13 EST documented in this encounter Plan of Treatment Not on file documented as of this encounter Visit Diagnoses Not on filedocumented in this encounter
--- OUTSIDE RECORDS SUMMARY | 2024-11-10 10:28 | XMS_ITS | Encounter Summary ---
Author Organization [employer] ([place], [place], [place], [place]) Address [address] [place] [address] Care Team Providers Care Middle School Pe Teacher Name Role Phone Unavailable Primary Care Provider Unavailabl e Encounter Details Date Type Department Care Team (Late st Contact Info) Description 04/28/2019 Transcribed Document [facility] Neurology - [address] [facility] [address] [place] [address] Meliza Downs Jr., MD [address] [id number] Social History Tobacco Use Types Packs/Day Years [...] for a while. [place]. i dw case managemenrt. documented in this encounter Plan of Treatment Not on file documented as of this encounter Visit Diagnoses Not on filedocumented in this encounter
--- OUTSIDE RECORDS SUMMARY | 2024-11-10 10:28 | XMS_ITS | Encounter Summary ---
Author Organization [employer] ([place], [place], [place], [place]) Address [address] [place] [address] Care Team Providers Care Heat And Frost Insulator Name Role Phone Unavailable Primary Care Provider Unavailabl e Encounter Details Date Type Department Care Team (Late st Contact Info) Description 05/02/2019 Transcribed Document [facility] Radiology 1 [place] [address] ProviderLuciano MD Social History Tobacco Use Types Packs/Day Years Used Date Smoking Tobacco: Never Assessed Comments Unknown Sex and Gender Information Value Date Recorded Sex Assigned at Not on file Legal Sex Female 6:01 PM CDT Gender Identity Not on file Sexual Orientation Not on file documented as of this encounter Miscellaneous Notes * Cerner Conversion Note - [facility] Aiyana ProviderMD - 05/02/2019 1:41 PM EST Stroke/Warfarin Instructions Entered On: 05/02/2019 12:41 EST Performed On: 05/02/2019 12:41 EST by Ericka Wharton RN Stroke/Warfarin Instructions Stroke/TIA Discharge Ins : N/A Warfarin Discharge Ins : N/A Ericka Wharton RN - 05/02/2019 12:41 EST Electronically signed by Carito [facility] Conversion Rate Manager Cerner at 08/23/2022 11:19 AM CDT documented in this encounter Plan of Treatment Not on file documented as of this encounter Visit Diagnoses Not on filedocumented in this encounter
--- OUTSIDE RECORDS SUMMARY | 2024-11-10 10:28 | XMS_ITS | Encounter Summary ---
Author Organization [employer] ([place], [place], [place], [place]) Address [address] [place] [address] Care Team Providers Care Document Control Specialist Name Role Phone Unavailable Primary Care Provider Unavailabl e Encounter Details Date Type Department Care Team (Late st Contact Info) Description 04/25/2019 Transcribed Document [facility] [address] [facility] [address] [place] [address] Meliza Downs Jr., MD [facility] [phone] Social History Tobacco Use Types Packs/Day Years [...]
--- OUTSIDE RECORDS SUMMARY | 2024-11-10 10:28 | XMS_ITS | Encounter Summary ---
Author Organization [employer] ([place], [place], [place], [place]) Address [address] [place] [address] Care Team Providers Care Automated Cutting Machine Operator Name Role Phone Unavailable Primary Care Provider Unavailabl e Encounter Details Date Type Department Care Team (Late st Contact Info) Description 05/02/[address] [facility] Radiology [address] [place] [address] ProviderLuciano MD Social History Tobacco Use Types Packs/Day Years Used Date Smoking Tobacco: Never Assessed Comments Unknown Sex and Gender Information Value Date Recorded Sex Assigned at Not on file Legal Sex Female 6:01 PM CDT Gender Identity Not on file Sexual Orientation Not on file documented as of this encounter Miscellaneous Notes * Cerner Conversion Note - [facility] Aiyana ProviderMD - 05/02/2019 8:10 PM EST [...]
--- OUTSIDE RECORDS SUMMARY | 2024-11-10 10:28 | XMS_ITS | Encounter Summary ---
Author Organization [employer] ([place], [place], [place], [place]) Address [address] [place] [address] Care Team Providers Care Document Manager Name Role Phone Unavailable Primary Care Provider Unavailabl e Encounter Details Date Type Department Care Team (Late st Contact Info) Description 04/26/2019 Transcribed Document [facility] Radiology [address] [place] [address] Provider, Luciano Bronson MD Social History Tobacco Use Types Packs/Day Years Used Date Smoking Tobacco: Never Assessed Comments Unknown Sex and Gender Information Value Date Recorded Sex Assigned at Not on file Legal Sex Female 6:01 PM CDT Gender Identity Not on file Sexual Orientation Not on file documented as of this encounter Miscellaneous Notes * Cerner Conversion Note - [facility] Aiyana Provider, - 04/26/2019 2:31 PM EST Treatment Intervention, PT Entered On: 04/28/2019 15:00 EST Performed On: 04/28/2019 14:54 EST by YOANNA GUERREOR, LANCE General Information, PT Visit Type, PT [...] YOANNA GUERRERO, PT - 04/28/2019 14:54 EST Adolescent Medicine Specialist Goals Mobility/Bed Mobility LTG PT Grid Goal [...] 04/28/2019 14:54 EST Electronically signed by Carito [facility] Conversion Communication Studies Professor Cerner at 08/23/2022 11:19 AM CDT documented in this encounter Plan of Treatment Not on file documented as of this encounter Visit Diagnoses Not on filedocumented in this encounter
--- OUTSIDE RECORDS SUMMARY | 2024-11-10 10:28 | XMS_ITS | Encounter Summary ---
Author Organization [employer] ([place], [place], [place], [place]) Address [address] [place] [address] Care Team Providers Care Production Administrative Assistant Name Role Phone Unavailable Primary Care Provider Unavailabl e Encounter Details Date Type Department Care Team (Late st Contact Info) Description 05/02/2019 Transcribed Document [facility] Radiology [address] [place] [address] Provider, Luciano Bronson MD Social History Tobacco Use Types Packs/Day Years Used Date Smoking Tobacco: Never Assessed Comments Unknown Sex and Gender Information Value Date Recorded Sex Assigned at Not on file Legal Sex Female 6:01 PM CDT Gender Identity Not on file Sexual Orientation Not on file documented as of this encounter Miscellaneous Notes * Cerner Conversion Note - [facility] Aiyana ProviderMD - 05/02/2019 9:47 AM EST UM Authorization Entered On: 05/02/2019 8:49 EST Performed On: 05/02/2019 8:47 EST by Gali Newman Rn-Utilization Review Primary Insurance Authorization Authorization and Policy Numbers : Insurance 1 Health Plan: A[employer] MEDICARE REPL Policy Number: [id number] Authorization Number: [id number] Insurance Primary Name : Tanya [id number] Authorization Status-Primary : Admit approved Authorization Number-Primary : [id number] Number of Days Authorized-Primary : 8 Day(s) Authorized Service Begin Date-Primary : 04/25/2019 EST Authorized Service End Date-Primary : 05/03/2019 EST Authorization Comments-Primary : c/s auth approved per brigette for 05/01 to 05/02. minh 05/03 Historical Authorization Comments-Primary : Comment 1: Authorized per fax 04/29/2019 @ 1530. Approved x5 days (6 total: 04/25-04/30). Next review due on 05/01/2019. Tameka Davidson, RN. (Dayna Rios, Hook And Eye Attacher 04/30/2019 07:06) Comment 2: clinical faxed per [employer]ner for 04/27 and 04/28 (Gali Newman, Rn-Utilization Review 04/28/2019 15:19) Comment 3: call back from tameka lui with [employer] requesting clinical be faxed to [phone]. clinical faxed per cerner (Gali Newman, Rn-Utilization Review 04/28/2019 15:17) Comment 4: lvm with brigette lui with tanya for c/s . acb (Gali Newman, Rn-Utilization Review 04/28/2019 13:51) Comment 5: clinicals faxed via [employer]ner for cont stay (only 1 day approved) (BULMARO DUONG, RN-Utilization Review 04/26/2019 13:11) Comment 6: per [facility] inpt approved 1 day auth# [id number] (FRANCY MILIAN, Histology Technologist 04/24/2019 13:26) Gali Newman, Deya-Utilization Review - 05/02/2019 8:47 EST documented in this encounter Plan of Treatment Not on file documented as of this encounter Visit Diagnoses Not on filedocumented in this encounter
--- OUTSIDE RECORDS SUMMARY | 2024-11-10 10:28 | XMS_ITS | Encounter Summary ---
Author Organization [employer] ([place], [place], [place], [place]) Address [address] [place] [address] Care Team Providers Care Senior Chemical Process Engineer Name Role Phone Unavailable Primary Care Provider Unavailabl e Encounter Details Date Type Department Care Team (Late st Contact Info) Description 04/25/2019 Transcribed Document [facility] Radiology [address] [place] [address] ProviderLuciano MD Social History Tobacco Use Types Packs/Day Years Used Date Smoking Tobacco: Never Assessed Comments Unknown Sex and Gender Information Value Date Recorded Sex Assigned at Not on file Legal Sex Female 6:01 PM CDT Gender Identity Not on file Sexual Orientation Not on file documented as of this encounter Miscellaneous Notes * Cerner Conversion Note - [facility] Aiyana ProviderMD - 04/25/2019 10:00 PM [...]
--- OUTSIDE RECORDS SUMMARY | 2024-11-10 10:28 | XMS_ITS | Encounter Summary ---
Author Organization [employer] ([place], [place], [place], [place]) Address [address] [place] [address] Care Team Providers Care Independent Crop Consultant Name Role Phone Unavailable Primary Care Provider Unavailabl e Encounter Details Date Type Department Care Team (Late st Contact Info) Description 04/28/2019 Transcribed Document [facility] Radiology [address] [place] [address] Provider, Luciano Bronson MD Social [...] - [facility] Aiyana ProviderMD - 04/28/2019 2:49 PM EST UM Authorization Entered On: 04/28/2019 13:49 EST Performed On: 04/28/2019 13:49 EST by Gali Newman Rn-Utilization Review Primary Insurance Authorization Authorization and Policy Numbers : Insurance 1 Health Plan: AETNA MEDICARE REPL Policy Number: [id number] Authorization Number: [id number] [id number] Authorization Status-Primary : Awaiting callback Authorization Number-Primary : [id number] Authorized Service Begin Date-Primary : 04/25/2019 EST Historical Authorization Comments-Primary : Comment 1: clinicals faxed via [employer] for cont stay (only 1 day approved) (BULMARO DUONG, RN-Utilization Review 04/26/2019 13:11) Comment 2: per [facility] inpt approved 1 day auth# [id number] (FRANCY MILIAN, Cyber Intel Planner 04/24/2019 13:26) Gali Newman Rn-Utilization Review - 04/28/2019 13:49 EST Electronically signed by Carito, [facility] Conversion Contract Post Office Clerk Cerner at 08/23/2022 11:19 AM CDT documented in this encounter Plan of Treatment Not on file documented as of this encounter Visit Diagnoses Not on filedocumented in this encounter
--- OUTSIDE RECORDS SUMMARY | 2024-11-10 10:28 | XMS_ITS | Encounter Summary ---
Author Organization [employer] ([place], [place], [place], [place]) Address [address] [place] [address] Care Team Providers Care Manager Talent Acquisition Name Role Phone Unavailable Primary Care Provider Unavailabl e Encounter Details Date Type Department Care Team (Late st Contact Info) Description 04/28/2019 Transcribed Document [facility] Radiology [address] [place] [address] Provider, Luciano Bronson MD [...] * Cerner Conversion Note - [facility] Aiyana ProviderMD - 04/28/2019 4:17 PM EST UM Authorization Entered On: 04/28/2019 15:19 EST Performed On: 04/28/2019 15:17 EST by Gali Newman Rn-Utilization Review Primary Insurance Authorization Authorization and Policy Numbers : Insurance 1 Health Plan: AET[employer] MEDICARE REPL Policy Number: [id number] Authorization Number: [id number] Insurance Primary Name : Tanya [id number] Authorization Status-Primary : Awaiting callback Authorization Number-Primary : [id number] Authorized Service Begin Date-Primary : 04/25/2019 EST Authorization Comments-Primary : call back from ten lui with tanya requesting clinical be faxed to [phone]. clinical faxed per faith Bronson Authorization Comments-Primary : Comment 1: lvm with brigette lui with tanya for c/s . acb (Trent, Gali L, Rn-Utilization Review 04/28/2019 13:51) Comment 2: clinicals faxed via [employer]ner for cont stay (only 1 day approved) (BULMARO DUONG, RN-Utilization Review 04/26/2019 13:11) Comment 3: per [facility] inpt approved 1 day auth# [id number] (FRANCY MILIAN, Office Machine Technician 04/24/2019 13:26) Gali Newman Rn-Utilization Review - 04/28/2019 15:17 EST documented in this encounter Plan of Treatment Not on file documented as of this encounter Visit Diagnoses Not on filedocumented in this encounter
--- OUTSIDE RECORDS SUMMARY | 2024-11-10 10:28 | XMS_ITS | Encounter Summary ---
Author Organization [employer] ([place], [place], [place], [place]) Address [address] [place] [address] Care Team Providers Care Social Human Services Assistants Name Role Phone Unavailable Primary Care Provider Unavailabl e Encounter Details Date Type Department Care Team (Late st Contact Info) Description 04/25/2019 Transcribed Document [facility] Radiology [address] [place] [address] Provider, Luciano Bronson MD Social [...] Note - [facility] Aiyana ProviderMD - 04/25/2019 7:38 AM [...] mom Support Person/Pt Rep Contact Information : [phone] Want Family/Rep/Phys Notified of Admit : No Emergency Contact #1 : Stonyfordamanda Gonzalez Emergency Contact #1 cell Emergency Contact #1 Relationship : Emergency Contact #2 : Kandi Burt Emergency Contact #2 cell Emergency Contact #2 Relationship : daughter Primary Language : Wallisian Preferred Communication Mode : Verbal Communication Barrier [...] Scale Risk Level : 25-45 Medium Risk [place] Fall Interventions : Adequate lighting, Assistive devices [...] Source : Measured Height Entry Format : [place] Height, Feet : 5 ft(Converted to: 152 cm, 60 Inch) Height, Inches : 2 Inch(Converted to: 0 ft 2 Inch, 5.08 cm) Clinical Height : 157.48 cm Weight Source : Standing scale Weight Entry Format : [place] Clinical Dosing Weight : 82.14 kg Weight, Pounds : 180.7 lb Body Surface Area (BSA) : 1.83 m2 Body Mass Index : 33.1 kg/m2 (HI) [place] Body Weight : 50 kg Daniela uBckner RN - 04/25/2019 19:52 EST Infectious Disease [...] Risk Level : Patient not at risk aDniela Buckner RN - 04/25/2019 19:52 EST [place] Suicide Severity Rating Scale (C-SSRS) CSSRS Past [...]
--- OUTSIDE RECORDS SUMMARY | 2024-11-10 10:28 | XMS_ITS | Encounter Summary ---
Author Organization [employer] ([place], [place], [place], [place]) Address [address] [place] [address] Care Team Providers Care Composite Bond Worker Name Role Phone Unavailable Primary Care Provider Unavailabl e Encounter Details Date Type Department Care Team (Late st Contact Info) Description 04/23/2019 Transcribed Document [facility] Radiology [address] [place] [address] ProviderLuciano MD Social History Tobacco [...] activities are safe for you. ??? Take mrpl-erx-suauyra and prescription medicines only as told by [...] 06/25/2001 Document Revised: 11/02/2017 Document Reviewed: 11/02/2017 [employer] Interactive Patient Education ? 2019 NICE. Magnetic Resonance Imaging Magnetic resonance imaging (MRI) [...] including vitamins, herbs, eye drops, creams, and bekw-ryw-jgpxkqn medicines. What are the risks? Generally, MRI [...] 05/14/2014 Elsevier Interactive Patient Education ? 2017 [employer] documented in this encounter Plan of Treatment Not on file documented as of this encounter Visit Diagnoses Not on filedocumented in this encounter
--- OUTSIDE RECORDS SUMMARY | 2024-11-10 10:28 | XMS_ITS | Encounter Summary ---
Author Organization [employer] ([place], [place], [place], [place]) Address [address] [place] [address] Care Team Providers Care Airplane Inspector Name Role Phone Unavailable Primary Care Provider Unavailabl e Encounter Details Date Type Department Care Team (Late st Contact Info) Description 04/23/2019 Transcribed Document [facility] Radiology [address] [place] [address] Provider, [facility] MD Aiyana Social History Tobacco Use [...] Note - [facility] Aiyana ProviderMD - 04/23/2019 7:04 PM EST [facility] [address] [place] [address] GERTRUDIS DALY :1955 Visit Time:04/23/2019 [...] follow up appointment for results. Where: [address] [facility] [address] [place] [address]- Medications What How Much When Instructions Next [...] activities are safe for you. ??? Take alnk-trh-rtewhos and prescription medicines only as told by [...] 06/25/2001 Document Revised: 11/02/2017 Document Reviewed: 11/02/2017 [employer] Interactive Patient Education ?? 2019 [employer] Magnetic Resonance Imaging Magnetic resonance imaging [...] including vitamins, herbs, eye drops, creams, and oxng-vgb-nzfxbed medicines. What are the risks? Generally, MRI [...] 03/16/2001 Document Revised: 08/21/2016 Document Reviewed: 05/14/2014 [employer] Interactive Patient Education ?? 2017 [employer] Emergency Awareness and Preventative Care STROKE [...] Assistance with quitting is available by contacting 3-185-CHHENOW. This is a free resource providing counseling, [...] was given the opportunity to ask questions. Patient/Fabric Worker Name: Patient/Fabric Worker Signature: Relationship to Patient: Clinician/Hospital Fabric Worker Signature: Date: documented in this encounter Plan of Treatment Not on file documented as of this encounter Visit Diagnoses Not on filedocumented in this encounter
--- OUTSIDE RECORDS SUMMARY | 2024-11-10 10:28 | XMS_ITS | Encounter Summary ---
Author Organization [employer] ([place], [place], [place], [place]) Address [address] [place] [address] Care Team Providers Care Waitstaff Name Role Phone Unavailable Primary Care Provider Unavailabl e Encounter Details Date Type Department Care Team (Late st Contact Info) Description 04/25/2019 Transcribed Document [facility] [address] [address] [facility] [address] [place] [id number] Lane Ortiz Jr., MD [address] [id number] Social History Tobacco Use Types Packs/Day Years [...] 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 RN ORTHOPAEDIC: Melanie Emmanuel PA-C. ANESTHESIA: Total IV anesthesia. [...] root retraction, dural closure, and wound closure. /[id number] Lane Ortiz Jr, MD RDO/AQ / RDO / MODL /[id number] documented in this encounter Plan of Treatment Not on file documented as of this encounter Visit Diagnoses Not on filedocumented in this encounter
--- OUTSIDE RECORDS SUMMARY | 2024-11-10 10:28 | XMS_ITS | Encounter Summary ---
Author Organization [employer] ([place], [place], [place], [place]) Address [address] [place] [address] Care Team Providers Care Mds Nurse Name Role Phone Unavailable Primary Care Provider Unavailabl e Encounter Details Date Type Department Care Team (Late st Contact Info) Description 04/23/2019 Transcribed Document [facility] Radiology [address] [place] [address] Provider, Luciano Bronson MD Social History Tobacco Use Types Packs/Day Years Used Date Smoking Tobacco: Never Assessed Comments Unknown Sex and Gender Information Value Date Recorded Sex Assigned at Not on file Legal Sex Female 6:01 PM CDT Gender Identity Not on file Sexual Orientation Not on file documented as of this encounter Miscellaneous Notes * Cerner Conversion Note - [facility] Aiyana ProviderMD - 04/23/2019 7:03 PM [...] 04/23/2019 18:03 EST Electronically signed by Carito [facility] Conversion Order Processor Cerner at 08/23/2022 11:19 AM CDT documented in this encounter Plan of Treatment Not on file documented as of this encounter Visit Diagnoses Not on filedocumented in this encounter
--- OUTSIDE RECORDS SUMMARY | 2024-11-10 10:28 | XMS_ITS | Encounter Summary ---
Author Organization [employer] ([place], [place], [place], [place]) Address [address] [place] [address] Care Team Providers Care Senior Engineer Name Role Phone Unavailable Primary Care Provider Unavailabl e Encounter Details Date Type Department Care Team (Late st Contact Info) Description 04/29/2019 Transcribed Document [facility] Radiology [address] [place] [address] Provider, Luciano Bronson MD Social [...] [facility] Aiyana ProviderMD - 04/29/2019 10:39 AM EST [...] Physician - ALVERTO DIMAS MD-INT - medical records management clerk Physician - MACK FAYE MD Referring Physician [...] 100 mg= 2 Cap, Oral, TID Metamucil [place] Smooth Texture Sugar Free, 1 Packet, Oral, [...] 04/28/2019 11:42 EST Electronically signed by Carito, [facility] Conversion Laborer Electroplating Cerner at 08/23/2022 11:19 AM CDT documented in this encounter Plan of Treatment Not on file documented as of this encounter Visit Diagnoses Not on filedocumented in this encounter
--- OUTSIDE RECORDS SUMMARY | 2024-11-10 10:28 | XMS_ITS | Encounter Summary ---
Author Organization [employer] ([place], [place], [place], [place]) Address [address] [place] [address] Care Team Providers Care Manager Transfer Name Role Phone Unavailable Primary Care Provider Unavailabl e Encounter Details Date Type Department Care Team (Late st Contact Info) Description 04/28/2019 Transcribed Document [facility] Radiology [address] [place] [address] Provider, Luciano Bronson MD Social History Tobacco Use Types Packs/Day Years Used Date Smoking Tobacco: Never Assessed Comments Unknown Sex and Gender Information Value Date Recorded Sex Assigned at Not on file Legal Sex Female 6:01 PM CDT Gender Identity Not on file Sexual Orientation Not on file documented as of this encounter Miscellaneous Notes * Cerner Conversion Note - [facility] Aiyana ProviderMD - 04/28/2019 2:51 PM EST UM Authorization Entered On: 04/28/2019 13:51 EST Performed On: 04/28/2019 13:51 EST by Gali Newman Rn-Utilization Review Primary Insurance Authorization Authorization and Policy Numbers : Insurance 1 Health Plan: [employer] MED[employer]ARE REPL Policy Number: [id number] Authorization Number: [id number] Insurance Primary Name : Mariela [id number] Authorization Status-Primary : Awaiting callback Authorization Number-Primary : [id number] Authorized Service Begin Date-Primary : 04/25/2019 EST Authorization Comments-Primary : lvm with brigette lui with [facility] for c/s . acb Historical Authorization Comments-Primary : Comment 1: clinicals faxed via [employer] for cont stay (only 1 day approved) (BULMARO DUONG RN-Utilization Review 04/26/2019 13:11) Comment 2: per [facility] inpt approved 1 day auth# [id number] (FRANCY MILIAN, Canvass Manager 04/24/2019 13:26) Gali Newman Rn-Utilization Review - 04/28/2019 13:51 EST Electronically signed by Carito [facility] Conversion Wax Cutter Cerner at 08/23/2022 11:19 AM CDT documented in this encounter Plan of Treatment Not on file documented as of this encounter Visit Diagnoses Not on filedocumented in this encounter
--- OUTSIDE RECORDS SUMMARY | 2024-11-10 10:28 | XMS_ITS | Encounter Summary ---
Author Organization [employer] Address [address] [place] [address] Care Team Providers Care Acid Tank Cleaner Name Role Phone Danelle Lennon APRN Primary Care Provider + [phone] Reason for Visit * Reason Comments Med Refill Encounter Details Date Type Department Care Team (Late st Contact Info) Description 10/08/2023 Refill [facility] [address] [place] [address] Alex Davis MD [address] [place] [address] Anxiety and depression; Postlaminectomy syndrome [...] documented as of this encounter Care Teams Acid Tank Cleaner Relationship Specialty Start Date End Date Danelle Lennon APRN [address] [place], [place] [id number] PCP - General Internal Medicine 06/18/24 documented as of this encounter
--- OUTSIDE RECORDS SUMMARY | 2024-11-10 10:28 | XMS_ITS | Encounter Summary ---
Author Organization [employer] ([place], [place], [place], [place]) Address [address] [place] [address] Care Team Providers Care Licensed Massage Therapist Name Role Phone Unavailable Primary Care Provider Unavailabl e Encounter Details Date Type Department Care Team (Late st Contact Info) Description 04/25/2019 Transcribed Document [facility] Radiology [address] [place] [address] Provider, Luciano Bronson MD Social [...] [facility] Aiyana ProviderMD - 04/25/2019 1:05 PM EST [facility] Main OR PACU Summary Primary Physician: MELIZA DOWNS MD-[facility] Finalized Date/Time: 04/25/19 20:10:04 Pt. Name: ADDY GERTRUDIS Gilbert /Sex: 1955 Female Med Rec #: [id number] Physician: MELIZA DOWNS MD-[facility] Financial #: [id number] Pt. Type: I Room/Bed: [facility]/ Admit/Disch: 04/25/19 06:38:00 - Institution: [facility] Main OR PACU I Case [...]
--- OUTSIDE RECORDS SUMMARY | 2024-11-10 10:28 | XMS_ITS | Encounter Summary ---
Author Organization [employer] ([place], [place], [place], [place]) Address [address] [place] [address] Care Team Providers Care Drafter (Cad) Electronic Name Role Phone Unavailable Primary Care Provider Unavailabl e Encounter Details Date Type Department Care Team (Late st Contact Info) Description 04/27/2019 Transcribed Document [facility] Radiology [address] [place] [address] ProviderLuciano MD Social History Tobacco [...] [facility] Aiyana ProviderMD - 04/27/2019 6:00 AM EST Chart Check - Review Order Profile Entered On: 04/27/2019 5:06 EST Performed On: 04/27/2019 5:00 EST by Daniela Buckner RN Chart Check Powerplans Initiated/Discontinued as Appropriate : Yes All Active Orders Reviewed : Yes Daniela Buckner RN - 04/27/2019 5:06 EST documented in this encounter Plan of Treatment Not on file documented as of this encounter Visit Diagnoses Not on filedocumented in this encounter
--- OUTSIDE RECORDS SUMMARY | 2024-11-10 10:28 | XMS_ITS | Encounter Summary ---
Author Organization [employer] ([place], [place], [place], [place]) Address [address] [place] [address] Care Team Providers Care Bench Molder Name Role Phone Unavailable Primary Care Provider Unavailabl e Encounter Details Date Type Department Care Team (Late st Contact Info) Description 04/25/2019 Transcribed Document [facility] Radiology [address] [place] [address] Provider, yvon Bronson MD Social History Tobacco Use Types Packs/Day Years Used Date Smoking Tobacco: Never Assessed Comments Unknown Sex and Gender Information Value Date Recorded Sex Assigned at Not on file Legal Sex Female 6:01 PM CDT Gender Identity Not on file Sexual Orientation Not on file documented as of this encounter Miscellaneous Notes * Cerner Conversion Note - [facility] Aiyana ProviderMD - 04/25/2019 1:05 PM EST [facility] Main OR IntraOp Summary Primary Physician: MELIZA DOWNS MD-SNU Finalized Date/Time: 04/27/19 12:47:33 Pt. Name: KANG DALYGHANSHYAM Gilbert /Sex: 1955 Female Med Rec #: [id number] Physician: MELIZA DOWNS MD-NIYA Financial #: [id number] Pt. Type: I Room/Bed: [facility] Admit/Disch: 04/25/19 06:38:00 - Institution: [facility] IntraOp Case Attendance Entry 1 Entry 2 Entry 3 Case Attendee MELIZA DOWNS MD-SNU Burdine, Teresa A, RN BRADY, CHRISTINA M, RN Role Performed Surgeon/Proceduralist, Furnace And Wash Equipment Operator, First Furnace And Wash Equipment Operator, First First Time In 04/25/19 11:21:00 04/25/19 11:21:00 04/25/19 11:21:00 Time Out 04/25/19 17:43:00 04/25/19 17:43:00 04/25/19 12:15:00 Procedure Lumbar Laminectomy Lumbar Laminectomy Lumbar Laminectomy Other Attendee lunch relief Superficial Wound Closed By: Last Modified By: Lida Mitchell RN Burdine, Teresa A, Lida Ho RN 04/25/19 17:44:12 04/25/19 17:44:12 04/25/19 17:44:12 Entry 4 Entry 5 Entry 6 Case Attendee JACKSON PATTERSON, [facility] Oscar MONAHAN Mark, DAHLIA BURRIS-JEB Role Performed Scrub, First Physician assistant men's soccer coach FORENSIC SERGEANT/Nurse Dietary Assistant Time In 04/25/19 11:21:00 04/25/19 11:21:00 04/25/19 [...] TSAI MD-Courtney Arenas, OTHER, ATTENDEE #1 Diagnostic Senior Javascript Engineer Role Performed Anesthesiologist of Sanitation Lead Other Record Time In 04/25/19 11:21:00 04/25/19 [...] WASSON, SANDRA D RN Technologist Role Performed Sanitation Lead Scrub, Second Time In 04/25/19 13:10:00 04/25/19 13:00:00 Time Out 04/25/19 14:38:00 04/25/19 14:15:00 Procedure Lumbar Laminectomy Lumbar Laminectomy Other Attendee LUNCH RELIEF Superficial Wound Closed By: Last Modified By: Lida Mitchell RN Burdine, Teresa A, RN 04/25/19 17:44:12 04/25/19 17:44:12 [facility] IntraOp Case Attendance Audit 04/25/19 17:44:12 Access Tech: [id number] Modifier: [id number] <+> Time Out 1 <*> Procedure [...] 11 <*> Procedure Lumbar Laminectomy 04/25/19 16:08:03 Access Tech: [id number] Modifier: [id number] <+> Time Out 3 <*> Procedure Lumbar Laminectomy 04/25/19 14:51:38 Access Tech: [id number] Modifier: [id number] <+> Time Out 10 <*> Procedure Lumbar Laminectomy 04/25/19 14:16:00 Access Tech: [id number] Modifier: [id number] <+> Time Out 11 <*> Procedure Lumbar Laminectomy 04/25/19 13:35:44 Access Tech: [id number] Modifier: [id number] <+> 10 Case Attendee <+> 10 Role Performed <+> 10 Time In <+> 10 Procedure <+> 10 Other Attendee <+> 11 Case Attendee <+> 11 Role Performed <+> 11 Time In <+> 11 Procedure 04/25/19 12:44:43 Access Tech: [id number] Modifier: [id number] <+> 1 Procedure 2 <*> Procedure Lumbar Laminectomy 3 <*> Procedure Lumbar Laminectomy 4 <*> Procedure Lumbar Laminectomy 5 <*> Procedure Lumbar Laminectomy 6 <*> Procedure Lumbar Laminectomy 7 <*> Procedure Lumbar Laminectomy 8 <*> Procedure Lumbar Laminectomy 9 <*> Procedure Lumbar Laminectomy 04/25/19 12:43:20 Access Tech: [id number] Modifier: [id number] <*> Procedure Lumbar Laminectomy 3 <*> Procedure Lumbar Laminectomy 4 <*> Procedure Lumbar Laminectomy 5 <*> Procedure Lumbar Laminectomy 6 <*> Procedure Lumbar Laminectomy 7 <*> Procedure Lumbar Laminectomy 8 <*> Procedure Lumbar Laminectomy 9 <+> Time In 9 <*> Procedure Lumbar Laminectomy 04/25/19 12:25:13 Access Tech: [id number] Modifier: [id number] <*> Procedure Lumbar Laminectomy 3 <*> Procedure Lumbar Laminectomy 4 <*> Procedure Lumbar Laminectomy 5 <*> Procedure Lumbar Laminectomy 6 <*> Procedure Lumbar Laminectomy 7 <*> Procedure Lumbar Laminectomy 8 <+> Time In 8 <*> Procedure Lumbar Laminectomy <+> 9 Case Attendee <+> 9 Role Performed <+> 9 Procedure <+> 9 Other Attendee 04/25/19 12:23:07 Access Tech: [id number] Modifier: [id number] <+> 1 Time In 2 <+> Time [...] <+> 8 Role Performed <+> 8 Procedure [facility] IntraOp Case Times Entry 1 Patient In Room Time 04/25/19 11:21:00 Out Room Time 04/25/19 17:43:00 Anesthesia Start Time 04/25/19 11:21:00 Stop Time 04/25/19 17:43:00 Surgery / Procedure Times Start Time 04/25/19 12:05:00 Stop Time 04/25/19 17:29:00 Last Modified By: Lida Mitchell RN 04/25/19 17:43:33 [facility] IntraOp Case Times Audit 04/25/19 17:43:33 Access Tech: [id number] Modifier: [id number] <+> 1 Out Room Time <+> 1 Stop Time <+> 1 Stop Time [facility] IntraOp Cautery Entry 1 Entry 2 ESU Identification Cautery Type Monopolar ESU BiPolar ESU Cautery Type Comments ID Number [id number] ID Type Hospital Number Hospital Number Cautery [...] Teresa A, RN 04/25/19 12:24:11 04/25/19 12:25:58 [facility] IntraOp Cautery Audit 04/25/19 12:25:58 Access Tech: [id number] Modifier: [id number] <+> 2 Cautery Type <+> 2 Coag Setting <+> 2 Cut Setting <+> 2 ID Number <+> 2 ID Type [facility] IntraOp Communication Entry 1 Entry 2 Entry [...] Modified By: Lida Mitchell RN 04/25/19 16:58:34 [facility] IntraOp Communication Audit 04/25/19 16:58:34 Access Tech: [id number] Modifier: [id number] <*> Comment CLOSING 04/25/19 16:33:59 Access Tech: [id number] Modifier: [id number] <+> 3 Communication By <+> 3 Date and Time <+> 3 Communication To <+> 3 Comment <+> 4 Communication By <+> 4 Date and Time <+> 4 Communication To <+> 4 Comment 04/25/19 13:43:33 Access Tech: [id number] Modifier: [id number] <+> 2 Communication By <+> 2 Date and Time <+> 2 Communication To <+> 2 Comment [facility] IntraOp Counts Verification Entry 1 Procedure Lumbar Laminectomy Count Info Count Type Sponge, Sharps, Miscellaneous Counts Verification Baseline/pre-procedure Sequence Counts Performed By Count Performed By JACKSON PATTERSON ST (Scrub) Count Performed By Lida Mitchell RN (RN) Last Modified By: Lida Mitchell RN 04/25/19 12:07:52 [facility] IntraOp Counts Final Entry 1 Procedure Lumbar Laminectomy Final Count Info Count Type Sponge, Sharps, Miscellaneous Counts Verification Skin Closure/end of Sequence procedure Count Results Correct, surgeon notified Counts Performed By Count Performed By JACKSON PATTERSON ST (Scrub) Count Performed By Lida Mitchell RN (RN) Last Modified By: Lida Mitchell RN 04/25/19 17:43:58 [facility] IntraOp Counts Final Audit 04/25/19 17:43:58 Access Tech: [id number] Modifier: [id number] Entry 1 was deleted. Higher numbered entries shifted one position to fill the gap. <-> 1 Procedure Lumbar Laminectomy <-> 1 Count Type Sponge, Sharps, Miscellaneous <-> 1 Count Results Correct, surgeon notified <-> 1 Count Performed By (Scrub) JACKSON PATTERSON ST <-> 1 Count Performed By (RN) Lida Mitchell RN <-> 1 Counts Verification Sequence 04/25/19 17:43:46 Access Tech: [id number] Modifier: [id number] <+> 2 Procedure <+> 2 Count Type <+> 2 Count Results <+> 2 Count Performed By (Scrub) <+> 2 Count Performed By (RN) <+> 2 Counts Verification Sequence [facility] IntraOp Cultures and Spec Summary Entry 1 Cultrures and Specimens Specimen Ordered: Yes Test(s) Frozen Requested/Final Section(s)/Path-Lab Disposition Last Modified By: Lida Mitchell RN 04/25/19 17:43:50 General Comments: A. NEOPLASM OF SPINE B. [place]APET CONTENTS C. CAUDA EQUINA TUMOR [facility] IntraOp Cultures and Spec Summary Audit 04/25/19 17:43:50 Access Tech: [id number] Modifier: [id number] <*> Specimen Ordered: [facility] IntraOp Departure from OR Entry 1 Integumentary Assessment Integumentary WDL Assessment WDL Transfer/Handoff Transfer to PACU Phase I Handoff Method Phone call Post-op Transport Stretcher/Gurtessa Via Patient Transport AISHA MONAHAN, Accompanied by ASHER JENKINS, Vu Moore, MARY Last Modified By: Lida Mitchell RN 04/25/19 12:26:34 [facility] IntraOp Dressing and Packing Entry 1 Type Dressing Location OPSITE Wound Dressing Item Occlusive dressing Applied By ALICE MAR PA-INT Last Modified By: Lida Mitchell RN 04/25/19 12:27:03 [facility] IntraOp Fire Risk Assessment Entry 1 Fire [...] Modified By: Lida Mitchell RN 04/25/19 12:27:34 [facility] IntraOp General Case Director Outcomes 1 Case Information OR OR 09 [facility] Case Level 1 Room Verified Yes Wound Class I - Clean Specialty SN Neurosurgery ASA Class 3 Diagnosis 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 Postop Same As Preop No Postop Diagnosis SEE MD POST OP NOTE Last Modified By: Lida Mitchell RN 01/24/20 12:33:13 [facility] IntraOp Implant Log Entry 1 Type Implant (Synthetic) Implant Log Implant Type Mesh Implant GRAFT MATRIX DURA Identification [id number] Description Implant Quantity 1 Implant Site OPSITE Implant [id number] Identification Lot Number Implant [employer] Surgical Identification [employer] Accountant Name: Implant [id number] Identification Catalog Number Implant Has an Yes Expiration Date Implant Expiration 05/30/21 Date Tissue Implant Last Modified By: Lida Mitchell RN 04/25/19 16:47:01 [facility] IntraOp Intraoperative Assessment Entry 1 Handoff Reported [...] Modified By: Lida Mitchell RN 04/25/19 12:34:19 [facility] IntraOp Intraoperative Assessment Audit 04/25/19 12:34:19 Access Tech: [id number] Modifier: [id number] <*> Present Upon Arrival to OR IVs [facility] IntraOp Intraoperative Equipment Entry 1 Type Equipment Equipment Equipment Ambreen Suction System Setting 200MMHG Intraop Monitoring Electrocardiogram Five lead placement (ECG) Electrode Placement Blood Pressure Arterial Pressure Line Source Pulse Oximeter Hand, left Probe Site Antiembolic Devices Antiembolic Devices Sequential compression device, knee high Antiembolic Device Bilateral Location Scopes Photo/Video Documentation Photo No Video No Last Modified By: Lida Mitchell RN 04/25/19 12:39:08 [facility] IntraOp Medication Admin Entry 1 Entry 2 Entry 3 Medication/Irrigant neomycin/bacitracin/poly thrombin 5,000 unit pwd FLSEAL VHSD FULL mixin 15 gm oint STRLPREP [id number] --[id number] Combo Med List Time Administered Route of [...] Medication/Irrigant SEALANT DURASL SPINE FLSEAL SD FULL [id number] STRLPREP [id number] Combo Med List Time Administered Route of TOPICAL TOPICAL Administration Dose Dose 5 10 Unit of Measure ml ml Volume Administered By MELIZA DOWNS MD-SNU OWEN, ROBERT D, MD-SNU Procedure Irrigation Irrigant Volume In Irrigant Volume Out Last Modified By: Lida Mitchell RN Burdine, Teresa A, RN 04/25/19 13:47:01 04/25/19 16:58:55 [facility] IntraOp Medication Admin Audit 04/25/19 16:58:55 Access Tech: [id number] Modifier: [id number] <+> 5 Medication/Irrigant <+> 5 Route of Administration <+> 5 Administered By <+> 5 Dose <+> 5 Unit of Measure 04/25/19 13:47:01 Access Tech: [id number] Modifier: [id number] <+> 4 Medication/Irrigant <+> 4 Route of Administration <+> 4 Administered By <+> 4 Dose <+> 4 Unit of Measure 04/25/19 13:01:17 Access Tech: [id number] Modifier: [id number] <+> 3 Medication/Irrigant <+> 3 Route of Administration <+> 3 Administered By <+> 3 Dose <+> 3 Unit of Measure [facility] IntraOp Patient Positioning Entry 1 Procedure Lumbar [...] Modified By: Lida Mitchell RN 04/25/19 12:43:00 [facility] IntraOp Sign In Entry 1 Patient, Site, [...] Modified By: Lida Mitchell RN 04/25/19 12:43:17 [facility] IntraOp Sign Out Entry 1 RN Confirmation [...] Modified By: Lida Mitchell RN 04/25/19 17:44:08 [facility] IntraOp Sign Out Audit 04/25/19 17:44:08 Access Tech: [id number] Modifier: [id number] <+> 1 RN Sign Out Signature Date/Time [facility] IntraOp Skin Prep Entry 1 Procedure Lumbar Laminectomy Prescribed Yes Pre-Surgical Prep Completed Prep Area OPSITE Intraop Prep Integumentary WDL Assessment WDL Prep Agents Chloraprep Prep by Lida Mitchell RN Hair Removal Methods No hair removal performed Last Modified By: Lida Mitchell RN 04/25/19 12:44:40 [facility] IntraOp Surgical Procedures Entry 1 Procedure Lumbar Laminectomy Additional (LUMBAR LAMINECTOMY Procedure WITH RESECTION Description /DEBULKING OF INTRA DURAL CAUDE EQUINA TUMOR) Primary Procedure Yes Primary Surgeon MELIZA DOWNS MD-SNU Start 04/25/19 12:05:00 Stop 04/25/19 17:29:00 Anesthesia Type General Specialty SN Neurosurgery Wound Class I - Clean Last Modified By: Lida Mitchell RN 04/25/19 17:44:10 [facility] IntraOp Surgical Procedures Audit 04/25/19 17:44:10 Access Tech: [id number] Modifier: [id number] <+> 1 Stop [facility] IntraOp Temp Regulation Devices Entry 1 Temp Regulation Temperature Forced Air Warming Regulation Device device, Warm blankets Temperature Upper body Regulation Site Temperature Device 43 Setting Temperature Oscar, Vu, FORENSIC SERGEANT Regulation Device Applied by Temperature PATIENT'S TEMPERATURE Regulation Comment MONITORED BY ANESTHESIA Last Modified By: Lida Mitchell RN 04/25/19 12:45:34 [facility] IntraOP Time Out Entry 1 Procedure to [...] Modified By: Lida Mitchell RN 04/25/19 12:05:42 [facility] IntraOp X-Ray and Images Entry 1 X-Ray/Imaging Type Fluoroscopy Fluoroscopy Type C-Arm Site OPSITE Aluminum Siding Installer Name Ev Toro RN-Educator I Protective Devices Yes Used Last Modified By: Lida Mitchell RN 04/25/19 12:52:48 Case Comments <None> Finalized By: PRIYANKA CLAYTON Document Signatures Signed By: Lida Mitchell RN 04/25/19 17:44 PRIYANKA CLAYTON/26/20 12:47 Unfinalized History Date/Time Username Reason for Unfinalizing Freetext Reason for Unfinalizing 04/27/19 12:36 [employer] Correct Billing documented in this encounter Plan of Treatment Not on file documented as of this encounter Visit Diagnoses Not on filedocumented in this encounter
--- OUTSIDE RECORDS SUMMARY | 2024-11-10 10:28 | XMS_ITS | Encounter Summary ---
Author Organization [employer] ([place], [place], [place], [place]) Address [address] [place] [address] Care Team Providers Care Drop Tester Name Role Phone Unavailable Primary Care Provider Unavailabl e Encounter Details Date Type Department Care Team (Late st Contact Info) Description 04/23/2019 Transcribed Document [facility] Radiology 1 [place] [address] Provider, Luciano Bronson MD Social History Tobacco Use Types Packs/Day Years Used Date Smoking Tobacco: Never Assessed Comments Unknown Sex and Gender Information Value Date Recorded Sex Assigned at Not on file Legal Sex Female 6:01 PM CDT Gender Identity Not on file Sexual Orientation Not on file documented as of this encounter Miscellaneous Notes * Cerner Conversion Note - [facility] Aiyana ProviderMD - 04/23/2019 12:37 PM EST Pre Procedure Adult Entered On: 04/23/2019 11:40 EST Performed On: 04/23/2019 11:37 EST by CHRISTOPHER MONTIEL RN Height and Weight, Clinical Dosing Height Source : Stated Height Entry Format : Clinch Height, Feet : 5 ft(Converted to: 152 cm, 60 Inch) Height, Inches : 2 Inch(Converted to: 0 ft 2 Inch, 5.08 cm) Clinical Height : 157.48 cm Weight Source : Standing scale Weight Entry Format : Clinch Clinical Dosing Weight : 81.82 kg Weight, Pounds : 180 lb Body Surface Area (BSA) : 1.83 m2 Body Mass Index : 33 kg/m2 (HI) Stearns Body Weight : 50 kg CHRISTOPHER MONTIEL [...] none. (Last Updated: 04/15/2019 09:19:39 EST by TAI SHARMA, RN) Substance Abuse: Drug Use Hx: [...] CHRISTOPHER MONTIEL RN - 04/23/2019 11:37 EST [place] Suicide Severity Rating Scale (C-SSRS) CSSRS Past [...] Navarro-Friend Support Person/Pt Rep Contact Information : [phone] Want Family/Rep/Phys Notified of Admit : No Emergency Contact #1 : . Emergency Contact #1 Phone Number : . Emergency Contact #1 Relationship : . Emergency Contact #2 : . Emergency Contact #2 Phone Number : . Emergency Contact #2 Relationship : . Primary Language : Sinhala Preferred Communication Mode : Verbal Communication Barrier [...] Scale Risk Level : 0-24 Low Risk [place] Fall Interventions : Adequate lighting, Assistive devices [...] the text rendition version of the form. Electronically signed by Luciano Arzate Conversion Correction Officer Reformatory Cerner at 08/23/2022 11:19 AM CDT documented in this encounter Plan of Treatment Not on file documented as of this encounter Visit Diagnoses Not on filedocumented in this encounter
--- OUTSIDE RECORDS SUMMARY | 2024-11-10 10:28 | XMS_ITS | Clinical Summary ---
Author Organization [employer] [facility] ([place], [place], [place], [place]) Address [address] [place] [address] Care Team Providers Care Bulk Receiver Name Role Phone Unavailable Primary Care Provider [...]
--- OUTSIDE RECORDS SUMMARY | 2024-11-10 10:28 | XMS_ITS | Encounter Summary ---
Author Organization [employer] ([place], [place], [place], [place]) Address [address] [place] [address] Care Team Providers Care Outside Cutter Name Role Phone Unavailable Primary Care Provider Unavailabl e Encounter Details Date Type Department Care Team (Late st Contact Info) Description 04/25/2019 Transcribed Document [facility] Radiology 1 [place] [address] Provider, Luciano Bronson MD Social [...] Note - [facility] Aiyana ProviderMD - 04/25/2019 10:03 AM EST [...] Anesthesiologist Procedure Case Attendee Role 2 : plumbing inspector Case Attendee 2 : RICARDO Rojas RN Procedure Case Attendee Role 3 : plumbing inspector Case Attendee 3 : JACKIE PERALTA RN [...]
--- OUTSIDE RECORDS SUMMARY | 2024-11-10 10:28 | XMS_ITS | Encounter Summary ---
Author Organization [employer] ([place], [place], [place], [place]) Address [address] [place] [address] Care Team Providers Care Forestry Fire Aide Name Role Phone Unavailable Primary Care Provider Unavailabl e Encounter Details Date Type Department Care Team (Late st Contact Info) Description 04/24/2019 Transcribed Document [facility] 1 [place] [address] ProviderLuciano MD Social History Tobacco [...] [facility] Aiyana ProviderMD - 04/24/2019 2:26 PM EST UM Authorization Entered On: 04/24/2019 13:27 EST Performed On: 04/24/2019 13:26 EST by FRANCY MILIAN Paper Novelty Maker Primary Insurance Authorization Authorization and Policy Numbers : Insurance 1 Health Plan: A[employer] MEDICARE REPL Policy Number: [id number] Authorization Number: [id number] Insurance Primary Name : Mariela [id number] Authorization Status-Primary : Admit approved Authorization Number-Primary : [id number] Authorized Service Begin Date-Primary : 04/25/2019 EST Authorization Comments-Primary : per STAR inpt approved 1 day auth# [id number] Historical Authorization Comments-Primary : No Authorization Comments Found FRANCY MILIAN, Paper Novelty Maker - 04/24/2019 13:26 EST Electronically signed by Luciano Arzate Conversion Motor Vehicle Parts Interpreter Cerner at 08/23/2022 11:18 AM CDT documented in this encounter Plan of Treatment Not on file documented as of this encounter Visit Diagnoses Not on filedocumented in this encounter
--- OUTSIDE RECORDS SUMMARY | 2024-11-10 10:28 | XMS_ITS | Encounter Summary ---
Author Organization [employer] ([place], [place], [place], [place]) Address [address] [place] [address] Care Team Providers Care Machine Straw Hat Presser Name Role Phone Unavailable Primary Care Provider Unavailabl e Encounter Details Date Type Department Care Team (Late st Contact Info) Description 04/25/2019 Transcribed Document [facility] Radiology 1 [place] [address] Provider, Luciano Bronson MD Social [...] AGUILA DANIELS, PT - 04/26/2019 13:19 EST Retirement Goals Mobility/Bed Mobility LTG PT Grid Goal [...] AGUILA DANIELS, PT - 04/26/2019 13:19 EST [place] PT Charges PT Eval Low Complexity : 1 AGUILA DANIELS, PT - 04/26/2019 13:19 EST Electronically signed by Carito [facility] Conversion Vulcanized Fiber Unit Operator Cerner at 08/23/2022 11:19 AM CDT documented in this encounter Plan of Treatment Not on file documented as of this encounter Visit Diagnoses Not on filedocumented in this encounter
--- OUTSIDE RECORDS SUMMARY | 2024-11-10 10:28 | XMS_ITS | Encounter Summary ---
Author Organization [employer] ([place], [place], [place], [place]) Address [address] [place] [address] Care Team Providers Care Tanker Service Attendant Name Role Phone Unavailable Primary Care Provider Unavailabl e Encounter Details Date Type Department Care Team (Late st Contact Info) Description 04/28/2019 Transcribed Document [facility] Radiology [address] [place] [address] Provider, Luciano Bronson MD Social [...] [facility] Aiyana ProviderMD - 04/28/2019 4:19 PM EST UM Authorization Entered On: 04/28/2019 15:20 EST Performed On: 04/28/2019 15:19 EST by Gali Newman Rn-Utilization Review Primary Insurance Authorization Authorization and Policy Numbers : Insurance 1 Health Plan: AETNA MEDICARE REPL Policy Number: [id number] Authorization Number: [id number] Insurance Primary Name : Mariela [id number] Authorization Status-Primary : Awaiting callback Authorization Number-Primary : [id number] Authorized Service Begin Date-Primary : 04/25/2019 EST Authorization Comments-Primary : clinical faxed per faith for 04/27 and 04/28 Historical Authorization Comments-Primary : Comment 1: call back from [employer] with kadeemdony requesting clinical be faxed to [phone]. clinical faxed per faith (Trent, Gali L, Rn-Utilization Review 04/28/2019 15:17) Comment 2: lvm with brigette rn with [employer] for c/s . acb (Gali Newman, Rn-Utilization Review 04/28/2019 13:51) Comment 3: clinicals faxed via [facility] for cont stay (only 1 day approved) (BULMARO DUONG, RN-Utilization Review 04/26/2019 13:11) Comment 4: per STAR inpt approved 1 day auth# [id number] (FRANCY MILIAN, Master Data Analyst 04/24/2019 13:26) Gali Newman Rn-Utilization Review - 04/28/2019 15:19 EST documented in this encounter Plan of Treatment Not on file documented as of this encounter Visit Diagnoses Not on filedocumented in this encounter
--- OUTSIDE RECORDS SUMMARY | 2024-11-10 10:28 | XMS_ITS | Encounter Summary ---
Author Organization [employer] ([place], [place], [place], [place]) Address [address] [place] [address] Care Team Providers Care Boat Outfitter Name Role Phone Unavailable Primary Care Provider Unavailabl e Encounter Details Date Type Department Care Team (Late st Contact Info) Description 04/28/[address] [facility] [address] [facility] [address] [place] [address] Lane Ortiz Jr., MD [facility] [id number] Social History Tobacco Use Types Packs/Day Years [...] for leak. Continue PT. Will need rehab. Tiger goodman. Medications alogliptin, 25 mg= 1 Tab, [...] 100 mg= 2 Cap, Oral, TID Metamucil [place] Smooth Texture Sugar Free, 1 Packet, Oral, [...] Lymph # 1.24 x10(3)/uL 04/28/2019 03:07 EST Isabela % 9.2 % (High) 04/28/2019 03:07 EST Isabela # 0.90 K/uL 04/28/2019 03:07 EST Eos [...] Appearance CLEAR2 04/28/2019 08:57 EST Urine Specific [place] >1.030 (High) 04/28/2019 08:57 EST Urine pH [...]
--- OUTSIDE RECORDS SUMMARY | 2024-11-10 10:28 | XMS_ITS | Encounter Summary ---
Author Organization [employer] ([place], [place], [place], [place]) Address [address] [place] [address] Care Team Providers Care Social Services Technician Name Role Phone Unavailable Primary Care Provider Unavailabl e Encounter Details Date Type Department Care Team (Late st Contact Info) Description 04/25/2019 Transcribed Document [facility] [address] [place] [address] ProviderLuciano MD Social History Tobacco [...] [facility] Aiyana ProviderMD - 04/25/2019 6:44 PM EST [...]
--- OUTSIDE RECORDS SUMMARY | 2024-11-10 10:28 | XMS_ITS | Encounter Summary ---
Author Organization [employer] ([place], [place], [place], [place]) Address [address] [place] [address] Care Team Providers Care All Source Collection Manager Name Role Phone Unavailable Primary Care Provider Unavailabl e Encounter Details Date Type Department Care Team (Late st Contact Info) Description 05/02/2019 Transcribed Document [facility] Radiology 1 [place] [address] Provider, [facility] MD Aiyana Social History Tobacco Use Types Packs/Day Years Used Date Smoking Tobacco: Never Assessed Comments Unknown Sex and Gender Information Value Date Recorded Sex Assigned at Not on file Legal Sex Female 6:01 PM CDT Gender Identity Not on file Sexual Orientation Not on file documented as of this encounter Miscellaneous Notes * Cerner Conversion Note - [facility] Aiyana ProviderMD - 05/02/2019 4:44 PM EST [facility] [address] [place] [id number] GERTRUDIS DALY :1955 Visit Time:04/25/2019 Your Visit [...] Services: [facility]-- Medical Equipment for Home Use: [facility]--[phone] Diet after Discharge: Resume usual diet as [...] EST Where: [facility] [address] [place] [address]- Follow Up with MELIZA DOWNS When 05/22/2019 11:00 AM EST Comments See appointment card Where: [address] (SUNDAY ONLY) [place] [address]- Business (1) Follow Up with MELIZA DOWNS When 05/08/2019 01:00 PM EST Comments See appointment card Where: [address] (SUNDAY ONLY) [place] [address]- Business (1) Follow Up with [...] at home: Medicines ??? Take or apply bvrj-fkh-oigtwed and prescription medicines only as told by [...] cannot use soap and water, use hand community health program coordinator. ? Change your bandage as told by [...] 12/26/2008 Document Revised: 08/24/2016 Document Reviewed: 09/06/2015 [employer] Interactive Patient Education ?? 2019 [employer] Laminectomy, Care After This sheet gives [...] and water are not available, use hand community health program coordinator. ? Change your dressing as told by [...] or a bad smell. Medicines ??? Take qsvy-ejb-kfankts and prescription medicines only as told by [...] urine clear or pale yellow. ? Take azsk-bzs-osvlpnj or prescription medicines. ? Eat foods that [...] 10/06/2005 Document Revised: 11/02/2016 Document Reviewed: 09/03/2016 [employer] Interactive Patient Education ?? 2019 [employer]. cyclobenzaprine (demetria young) Amrix, Comfort Pac with [...] may report side effects to FDA at 8-805-RDZ-2753. What other drugs will affect cyclobenzaprine? Using [...] drugs may affect cyclobenzaprine, including prescription and qfws-bmm-eyumgzn medicines, vitamins, and herbal products. Not all [...] to ensure that the information provided by [employer]. ('[employer]') is accurate, up-to-date, and complete, but no guarantee is made to that effect. Drug information contained herein may be time sensitive. [employer] information has been compiled for use by healthcare practitioners and consumers in the [place] and therefore [employer] does not warrant that uses outside of the [place] are appropriate, unless specifically indicated otherwise. [employer] drug information does not endorse drugs, diagnose patients or recommend therapy. [employer] drug information is an informational resource designed [...] effective or appropriate for any given patient. [employer] does not assume any responsibility for any aspect of healthcare administered with the aid of information [employer] provides. The information contained herein is not intended to cover all possible uses, directions, precautions, warnings, drug interactions, allergic reactions, or adverse effects. If you have questions about the drugs you are taking, check with your doctor, nurse or pharmacist. Copyright 9906-4693 [employer]. Version: 5.01. Revision Date: 12/26/2017. pregabalin (pre [...] may report side effects to FDA at 0-987-VUO-2617. What other drugs will affect pregabalin? Using [...] drugs may affect pregabalin, including prescription and clwi-lje-tagbchu medicines, vitamins, and herbal products. Not all [...] to ensure that the information provided by [employer]. ('[employer]') is accurate, up-to-date, and complete, but no guarantee is made to that effect. Drug information contained herein may be time sensitive. [employer] information has been compiled for use by healthcare practitioners and consumers in the [place] and therefore [employer] does not warrant that uses outside of the [place] are appropriate, unless specifically indicated otherwise. [employer] drug information does not endorse drugs, diagnose patients or recommend therapy. [employer] drug information is an informational resource designed [...] effective or appropriate for any given patient. [employer] does not assume any responsibility for any aspect of healthcare administered with the aid of information [employer] provides. The information contained herein is not intended to cover all possible uses, directions, precautions, warnings, drug interactions, allergic reactions, or adverse effects. If you have questions about the drugs you are taking, check with your doctor, nurse or pharmacist. Copyright 8056-0364 [employer]. Version: 8.01. Revision Date: 09/11/2017. acetaminophen and [...] may report side effects to FDA at 3-690-PJF-7620. What other drugs will affect acetaminophen and [...] affect acetaminophen and oxycodone, including prescription and qand-ysx-wrngujt medicines, vitamins, and herbal products. Not all [...] to ensure that the information provided by [employer]. ('[employer]') is accurate, up-to-date, and complete, but no guarantee is made to that effect. Drug information contained herein may be time sensitive. [employer] information has been compiled for use by healthcare practitioners and consumers in the [place] and therefore [employer] does not warrant that uses outside of the [place] are appropriate, unless specifically indicated otherwise. [employer] drug information does not endorse drugs, diagnose patients or recommend therapy. [employer] drug information is an informational resource designed [...] effective or appropriate for any given patient. [employer] does not assume any responsibility for any aspect of healthcare administered with the aid of information [employer] provides. The information contained herein is not intended to cover all possible uses, directions, precautions, warnings, drug interactions, allergic reactions, or adverse effects. If you have questions about the drugs you are taking, check with your doctor, nurse or pharmacist. Copyright 9848-8347 [employer]. Version: 18.02. Revision Date: 02/27/2018. Emergency Awareness [...] Assistance with quitting is available by contacting 0-194-FVLJ-NOW. This is a free resource providing counseling, support, and referral. Or you may contact your personal physician. [employer] Suicide Prevention Lifeline: The National Suicide Prevention [...] range between ( 11.7 and 14.9 ) [place] Percent Man: 8 % -- Normal range [...] range between ( 0.0 and 7.0 ) [place] #: 0.62 K/uL -- Normal range between ( 0.16 and 1.00 ) Eos #: 0.28 x10(3)/uL -- Normal range between ( 0.00 and 0.80 ) [place] %: 7.5 % -- Normal range between [...] ) Urine Bilirubin Dipstick: Negative Urine Specific [place]: >1.030 -- Normal range between ( 1.005 and 1.030 ) Urine Type.: U Cath 04/15/2019 8:26 AM Urine Type: U [employer] Blood Bank 04/25/2019 8:37 AM ABO/Rh Repeat: [...] was given the opportunity to ask questions. Patient/Publications Sales Representative Name: Patient/Publications Sales Representative Signature: Relationship to Patient: Clinician/Hospital Publications Sales Representative Signature: Date: documented in this encounter Plan of Treatment Not on file documented as of this encounter Visit Diagnoses Not on filedocumented in this encounter
--- OUTSIDE RECORDS SUMMARY | 2024-11-10 10:28 | XMS_ITS | Encounter Summary ---
Author Organization [employer] ([place], [place], [place], [place]) Address [address] [place] [address] Care Team Providers Care Heat Treat Inspector Name Role Phone Unavailable Primary Care Provider Unavailabl e Encounter Details Date Type Department Care Team (Late st Contact Info) Description 04/26/2019 Transcribed Document [facility] [address] [facility] [address] [place] [address] Meliza Downs Jr., MD [address] [place] [id number] Social History Tobacco Use Types Packs/Day Years [...]
--- OUTSIDE RECORDS SUMMARY | 2024-11-10 10:28 | XMS_ITS | Encounter Summary ---
Author Organization [employer] ([place], [place], [place], [place]) Address [address] [place] [address] Care Team Providers Care Film Or Videotape Editor Name Role Phone Unavailable Primary Care Provider Unavailabl e Encounter Details Date Type Department Care Team (Late st Contact Info) Description 04/25/2019 Transcribed Document [facility] Radiology 1 [place] [address] ProviderLuciano MD Social History [...] - [facility] Aiyana ProviderMD - 04/25/2019 6:44 PM [...] 04/27/2019 8:44 EST Electronically signed by Carito [facility] Conversion Junior Programmer Cerner at 08/23/2022 11:19 AM CDT documented in this encounter Plan of Treatment Not on file documented as of this encounter Visit Diagnoses Not on filedocumented in this encounter
--- OUTSIDE RECORDS SUMMARY | 2024-11-10 10:28 | XMS_ITS | Encounter Summary ---
Author Organization [employer] ([place], [place], [place], [place]) Address [address] [place] [address] Care Team Providers Care Anesthesiologist/Physician Name Role Phone Unavailable Primary Care Provider Unavailabl e Encounter Details Date Type Department Care Team (Late st Contact Info) Description 04/25/[address] [facility] Radiology [address] [place] [address] Provider, Luciano Bronson MD Social [...] * Cerner Conversion Note - [facility] Aiyana ProviderMD - 04/25/2019 6:44 PM EST [...] : Intact Comprehension Assessment, OT : Intact FLROES JONES OTR/L - 04/26/2019 13:53 EST Indication [...] FLORES JONES OTR/Ofelia - 04/26/2019 13:53 EST Estate Planning Counselor Goals, OT Grooming LTG Grid Goal #1 [...] FLORES JONES OTR/Ofelia - 04/26/2019 13:53 EST [place] OT Charges OT Eval Moderate Complexity : 1 FLORES JONES OTR/Ofelia - 04/26/2019 13:53 EST Electronically signed by Carito [facility] Conversion Eyelet Row Marker Cerner at 08/23/2022 11:19 AM CDT documented in this encounter Plan of Treatment Not on file documented as of this encounter Visit Diagnoses Not on filedocumented in this encounter
--- OUTSIDE RECORDS SUMMARY | 2024-11-10 10:28 | XMS_ITS | Encounter Summary ---
Author Organization [employer] ([place], [place], [place], [place]) Address [address] [place] [address] Care Team Providers Care Assistant Farm Operations Manager Name Role Phone Unavailable Primary Care Provider Unavailabl e Encounter Details Date Type Department Care Team (Late st Contact Info) Description 05/05/2019 Transcribed Document [facility] Radiology 1 [place] [address] Provider, Luciano Bronson MD Social [...] Note - [facility] Aiyana ProviderMD - 05/05/2019 3:05 PM EST UM Authorization Entered On: 05/05/2019 14:05 EST Performed On: 05/05/2019 14:05 EST by Dayna Rios, Principal Quality Engineer Primary Insurance Authorization Authorization and Policy Numbers : Insurance 1 Health Plan: [employer] MEDICARE REPL Policy Number: [id number] Authorization Number: [id number] Insurance Primary Name : Mariela [id number] Authorization Status-Primary : Admit approved Auth/Referral Contact Name-Primary : [place] Authorization Number-Primary : [id number] Number of Days Authorized-Primary : 8 Day(s) [...] on 05/01/2019. Tameka Davidson, RN. (Dayna Rios, Principal Quality Engineer 04/30/2019 07:06) Comment 3: clinical faxed per cerner for 04/27 and 04/28 (Gali Newman, Rn-Utilization Review 04/28/2019 15:19) Comment 4: call back from tameka lui with [employer] requesting clinical be faxed to [phone]. clinical faxed per cerner (Gali Newman, Rn-Utilization Review 04/28/2019 15:17) Comment 5: lvm with brigette lui with [employer] for c/s . acb (Gali Newman, Rn-Utilization Review 04/28/2019 13:51) Comment 6: clinicals faxed via [employer]ner for cont stay (only 1 day approved) (BULMARO DUONG, RN-Utilization Review 04/26/2019 13:11) Comment 7: per STAR inpt approved 1 day auth# [id number] (FRANCY MILIAN, Audit Practice Intern 04/24/2019 13:26) Dayna Rios, Principal Quality Engineer - 05/05/2019 14:05 EST Electronically signed by Carito [facility] Conversion Assault Boat Coxswain Cerner at 08/23/2022 11:19 AM CDT documented in this encounter Plan of Treatment Not on file documented as of this encounter Visit Diagnoses Not on filedocumented in this encounter
--- OUTSIDE RECORDS SUMMARY | 2024-11-10 10:28 | XMS_ITS | Encounter Summary ---
Author Organization [employer] ([place], [place], [place], [place]) Address [address] [place] [address] Care Team Providers Care Supervisory Investigative Specialist Name Role Phone Unavailable Primary Care Provider Unavailabl e Encounter Details Date Type Department Care Team (Late st Contact Info) Description 04/28/2019 Transcribed Document [facility] [address] [place] [address] Provider, Luciano Bronson MD Social History Tobacco Use Types Packs/Day Years Used Date Smoking Tobacco: Never Assessed Comments Unknown Sex and Gender Information Value Date Recorded Sex Assigned at Not on file Legal Sex Female 6:01 PM CDT Gender Identity Not on file Sexual Orientation Not on file documented as of this encounter Miscellaneous Notes * Cerner Conversion Note - [facility] Aiyana ProviderMD - 04/28/2019 5:40 PM EST Consult Phone Call Documentation Entered On: 04/29/2019 8:03 EST Performed On: 04/28/2019 16:40 EST by Marce [facility] Coord Phone Call for Consults Consult Phone Call/Page Attempt : First call Consult Reason : neurogenic bladder Physician Requesting Consult : ALICE MAR PA-INT Provider Team Notified Name : Urology Physician Covering for Consult : NOÉ HAILE MD-URO Date and Time Call Returned : 04/29/2019 8:03 EST Consult, Additional Information : Spoke with Dr. Mcdonald urology resident Marce Multani, [facility] Coord - 04/29/2019 8:02 EST documented in this encounter Plan of Treatment Not on file documented as of this encounter Visit Diagnoses Not on filedocumented in this encounter
--- OUTSIDE RECORDS SUMMARY | 2024-11-10 10:28 | XMS_ITS | Encounter Summary ---
Author Organization [employer] ([place], [place], [place], [place]) Address [address] [place] [address] Care Team Providers Care Eyeglass Lens Cutter Name Role Phone Unavailable Primary Care Provider Unavailabl e Encounter Details Date Type Department Care Team (Late st Contact Info) Description 04/29/2019 Transcribed Document [facility] [address] [facility] [address] [place] [id number] Meliza Downs Jr., MD [facility] [place] [id number] Social History Tobacco Use Types Packs/Day Years [...] for leak. Continue PT. Will need rehab. [place] [facility]man. Urology to see today. VTE Prophylaxis [...] 100 mg= 2 Cap, Oral, TID Metamucil [place] Smooth Texture Sugar Free, 1 Packet, Oral, [...]
--- OUTSIDE RECORDS SUMMARY | 2024-11-10 10:28 | XMS_ITS | Clinical Summary ---
Author Organization [facility] Address [address] [place] [address] Care Team Providers Care Laboratory Chemical Assistant Name Role Phone Ev Augustin VASILE Primary Care Provider [phone] Allergies Active Allergy Reactions Criticality Noted Date [...] Density Scan 1955 [facility]-Infant/Child/Adol SDOH Screenings 1955 FRZ-ENSSE-09 Vaccine (#1) 1960 [facility]- SDOH Screenings 1974 [...] Negative 11/08/2023 4:13 PM EDT [facility] Hepatitis B Core Antibody IgM Negative Negative 11/08/2023 4:13 PM ED[address] [facility] Blood Venous blood specimen / Unknown Venipuncture / Unknown 11/08/2023 1:57 PM EDT 11/08/2023 2:01 PM EDT us Denis Hudson APRN LAB BLOOD ORDERABLES Final Res ult Performing Organization Address City/State/[facility] Co de Phone Number HEALTHCARE LAB [address] [place] [address] from Last 3 Months or Most Recently Relevant to Health Maintenance Insurance Care Teams Laboratory Chemical Assistant Relationship Specialty Start Date End Date Ev Augustin APRN [address] [place] [address] PCP - General 08/13/20
--- OUTSIDE RECORDS SUMMARY | 2024-11-10 10:28 | XMS_ITS | Encounter Summary ---
Author Organization [employer] ([place], [place], [place], [place]) Address [address] [place] [address] Care Team Providers Care [place] Boatman Name Role Phone Unavailable Primary Care Provider Unavailabl e Encounter Details Date Type Department Care Team (Late st Contact Info) Description 04/27/2019 Transcribed Document [facility] [address] [facility] [address] [place] [address] Meliza Downs Jr., MD [facility] [place] [id number] Social History Tobacco Use Types Packs/Day Years [...]
--- OUTSIDE RECORDS SUMMARY | 2024-11-10 10:28 | XMS_ITS | Encounter Summary ---
Author Organization [employer] ([place], [place], [place], [place]) Address [address] [place] [address] Care Team Providers Care Broom Stitcher Name Role Phone Unavailable Primary Care Provider Unavailabl e Encounter Details Date Type Department Care Team (Late st Contact Info) Description 04/28/2019 Transcribed Document [facility] Radiology [address] [place] [address] Provider, Luciano Bronson MD Social History Tobacco Use Types Packs/Day Years Used Date Smoking Tobacco: Never Assessed Comments Unknown Sex and Gender Information Value Date Recorded Sex Assigned at Not on file Legal Sex Female 6:01 PM CDT Gender Identity Not on file Sexual Orientation Not on file documented as of this encounter Miscellaneous Notes * Cerner Conversion Note - [facility] Aiyana ProviderMD - 04/28/2019 2:50 PM EST UM Authorization Entered On: 04/28/2019 13:50 EST Performed On: 04/28/2019 13:50 EST by Gali Newman Rn-Utilization Review Primary Insurance Authorization Authorization and Policy Numbers : Insurance 1 Health Plan: [employer] MED[employer]ARE REPL Policy Number: [id number] Authorization Number: [id number] Insurance Primary Name : Mariela [id number] Authorization Status-Primary : Awaiting callback Authorization Number-Primary : [id number] Authorized Service Begin Date-Primary : 04/25/2019 EST Historical Authorization Comments-Primary : Comment 1: clinicals faxed via [employer] for cont stay (only 1 day approved) (BULMARO DUONG, RN-Utilization Review 04/26/2019 13:11) Comment 2: per [facility] inpt approved 1 day auth# [id number] (FRANCY MILIAN, Admissions Consultant 04/24/2019 13:26) Gali Newman Rn-Utilization Review - 04/28/2019 13:50 EST Electronically signed by Carito, [facility] Conversion Weight Recorder Cerner at 08/23/2022 11:19 AM CDT documented in this encounter Plan of Treatment Not on file documented as of this encounter Visit Diagnoses Not on filedocumented in this encounter
--- OUTSIDE RECORDS SUMMARY | 2024-11-10 10:28 | XMS_ITS | Encounter Summary ---
Author Organization [employer] ([place], [place], [place], [place]) Address [address] [place] [address] Care Team Providers Care Marketing Research Intern Name Role Phone Unavailable Primary Care Provider Unavailabl e Encounter Details Date Type Department Care Team (Late st Contact Info) Description 04/25/2019 Transcribed Document [facility] Radiology [address] [place] [address] Provider, Luciano [...] [facility] Aiyana ProviderMD - 04/25/2019 6:45 PM EST [...] version of the form. Electronically signed by Carito, Jim Conversion Highway Traffic Control Technician Cerner at 08/23/2022 11:19 AM CDT documented in this encounter Plan of Treatment Not on file documented as of this encounter Visit Diagnoses Not on filedocumented in this encounter
--- OUTSIDE RECORDS SUMMARY | 2024-11-10 10:28 | XMS_ITS | Encounter Summary ---
Author Organization [employer] ([place], [place], [place], [place]) Address [address] [place] [address] Care Team Providers Care Associate Chemist Name Role Phone Unavailable Primary Care Provider Unavailabl e Encounter Details Date Type Department Care Team (Late st Contact Info) Description 04/29/2019 Transcribed Document [facility] Radiology [address] [place] [address] Karina Murphy MD [address] [place] [address] Social History Tobacco Use Types Packs/Day [...] 1955 Associated Diagnoses: None Author: GERALDINE KESSLER, FREEZER PERSON-GUNNAR S: Patient found lying in bed. A/O. [...] mg/dL 04/29/2019 09:47 Glucose Level 131 mg/dL PR 04/29/2019 09:47 Calcium Level 8.8 mg/dL 04/29/2019 [...] Results (Current Encounter/Past 24 Hours) Bun/Creatinine 22.0 PR 04/29/2019 09:47 Creatinine Level 0.50 mg/dL LOW 04/29/2019 09:47 eGFR NonAfrican >60 mL/min/1.73m2 04/29/2019 09:47 eGFR >60 mL/min/1.73m2 04/29/2019 09:47 Sodium Level 138 mmol/L 04/29/2019 09:47 Potassium Level 3.3 mmol/L LOW 04/29/2019 09:47 Chloride Level 104 mmol/L 04/29/2019 09:47 Carbon Dioxide Level 31 mmol/L 04/29/2019 09:47 Anion Gap 6 LOW 04/29/2019 09:47 Blood Urea Nitrogen 11 mg/dL 04/29/2019 09:47 Glucose Level 131 mg/dL PR 04/29/2019 09:47 Calcium Level 8.8 mg/dL 04/29/2019 09:47 Coagulation Results (Current Encounter/Past 24 Hours) No Coagulation Results Found (Past 24 Hours) Creatinine Clearance (Current Encounter/Past 24 Hours) Creatinine Level 0.50 mg/dL LOW 04/29/2019 09:47 Bun/Creatinine 22.0 PR 04/29/2019 09:47 Estimated Creatinine Clearance 92.27 mL/Min [...] per Dr. Ortiz; family requesting placement [place] Urology consulted given neurogenic bladder and retention [...]
--- OUTSIDE RECORDS SUMMARY | 2024-11-10 10:28 | XMS_ITS | Encounter Summary ---
Author Organization [employer] ([place], [place], [place], [place]) Address [address] [place] [address] Care Team Providers Care Events Manager Name Role Phone Unavailable Primary Care Provider Unavailabl e Encounter Details Date Type Department Care Team (Late st Contact Info) Description 04/25/2019 Transcribed Document [facility] Radiology [address] [place] [address] Provider, yvon Bronson MD Social [...] [facility] Aiyana ProviderMD - 04/25/2019 1:05 PM EST [facility] Main OR Preop Summary Primary Physician: MELIZA DOWNS MD- Finalized Date/Time: 04/25/19 13:08:43 Pt. Name: GERTRUDIS DALY /Sex: 1955 Female Med Rec #: [id number] Physician: MELIZA DOWNS MD-[facility] Financial #: [id number] Pt. Type: I Room/Bed: ASA/1 Admit/Disch: 04/25/19 06:38:00 - Institution: [facility] PreOp Case Times Entry 1 In Preop 04/25/19 07:51:00 Ready for Holding n/a Room Patient Ready for 04/25/19 09:28:00 Surgery Patient Out of Preop 04/25/19 11:14:00 Patient Out of n/a Holding Room Last Modified By: CHRISTELLE MCCORD RN 04/25/19 13:08:36 [facility] PreOp Case Times Audit 04/25/19 13:08:36 Label Machine Operator: EMILIE Modifier: [email or web address] <+> 1 Patient Out of Preop 04/25/19 09:28:42 Label Machine Operator: EMILIE Modifier: [id number] <+> 1 Patient Ready for Surgery Finalized By: CHRISTELLE MCCORD V., RN Document Signatures Signed By: CHRISTELLE MCCODR RN 04/25/19 13:08 Electronically signed by Carito [facility] Conversion Chrome Polisher Cerner at 08/23/2022 11:18 AM CDT documented in this encounter Plan of Treatment Not on file documented as of this encounter Visit Diagnoses Not on filedocumented in this encounter
--- OUTSIDE RECORDS SUMMARY | 2024-11-10 10:28 | XMS_ITS | Encounter Summary ---
Author Organization [employer] ([place], [place], [place], [place]) Address [address] [place] [address] Care Team Providers Care Ic Design Engineer Name Role Phone Unavailable Primary Care Provider Unavailabl e Encounter Details Date Type Department Care Team (Late st Contact Info) Description 04/29/2019 Transcribed Document [facility] Radiology [address] [place] [address] Provider, Luciano Bronson MD Social [...] * Cerner Conversion Note - [facility] Aiyana ProviderMD - 04/29/2019 4:24 PM EST On Going Discharge Planning Entered On: 04/29/2019 15:26 EST Performed On: 04/29/2019 15:24 EST by ROMELIA MCADAMS RN-Shag Truck DriverModel Artists' Progress Note Discharge Arrangements : Patient Post-Acute [...] Meeting Medical Necessity : Yes ROMELIA MCADAMS RN-Shag Truck Driver - 04/29/2019 15:24 EST Narrative Progress Note Narrative Progress Note : Urology consulted for neurogenic bladder. Pt's choices of [facility] and [facility] are not in network with pt's payor source. D/W pt at bedside. She has chose [facility] now. Referral sent via Tc and informed Colleene. Precert intitated for acute. CM will continue to follow. ROMELIA MCADAMS RN-Shag Truck Driver - 04/29/2019 15:24 EST Electronically signed by Carito [facility] Conversion Print Line Tailer Cerner at 08/23/2022 11:18 AM CDT documented in this encounter Plan of Treatment Not on file documented as of this encounter Visit Diagnoses Not on filedocumented in this encounter
--- OUTSIDE RECORDS SUMMARY | 2024-11-10 10:29 | XMS_ITS | Encounter Summary ---
[facility] Address [address] [place] [id number] Care Team Providers Care Licensed Prosthetist/Orthotist Name Role Phone Danelle Lennon APRN Primary Care Provider [phone] Reason for Visit * Reason Onset Date Comments Shortness of Breath 12/12/2016 Encounter Details Date Type Department Care Team ([facility] st Contact Info) Description 12/12/2016 Telephone [facility] INTERNAL MEDICINE [address] [place] [address] Madelaine Norman, PEDIATRIC DENTAL HYGIENIST [address] [place] [phone] Shortness of Breath Social History Tobacco Use [...] documented as of this encounter Care Teams Licensed Prosthetist/Orthotist Relationship Specialty Start Date End Date Danelle Lennon APRN [address] [place] [address] PCP - General Internal Medicine 06/18/24 documented as of this encounter
--- OUTSIDE RECORDS SUMMARY | 2024-11-10 10:29 | XMS_ITS | Clinical Summary ---
Author Organization [facility] Address [address] [place] [id number] Care Team Providers Care Pool Table Mechanic Name Role Phone Danelle Lennon APRN Primary Care Provider [phone] Allergies Active Allergy Reactions Criticality Noted Date [...] - 29.0 mg/g 06/18/2024 12:51 AM EDT [facility] Creatinine, Urine 113.4 mg/dL 06/18/2024 12:51 AM EDT [facility] Microalbumin, Urine 1.3 mg/dL 06/18/2024 12:51 AM EDT [facility] Urine Urine specimen obtained by clean catch procedure / Unknown Collection / Unknown 06/17/2024 3:48 PM EDT 06/17/2024 3:48 PM EDT Bridget VILLAGOMEZ-C URINE ORDERABLES Final Resu lt [facility]
[address] [place] [address], * Colonoscopy, Scan (08/20/2023) us Alex Davis [...] - 05/31/2023 3:08 AM EST Performed at: [address] [place] [id number] Barrel Assembler Helper: Lane Haile MD, Phone: [phone] Patient Fasting: Y us Alex Davis MD LAB BLOOD ORDERABLES Final Resu lt [facility] (AMBULATORY) [address] [place] [id number], [facility] [address] [place] [address], [place] [phone] * (ABNORMAL) Lipid Panel (05/30/2023 10:50 AM [...] - 05/31/2023 3:08 AM EST Performed at: [address] [place] [id number] Barrel Assembler Helper: Lane Haile MD, Phone: [phone] Patient Fasting: Y Alex Davis MD LAB BLOOD ORDERABLES Final Resu lt [facility] [employer] [facility] ([facility]BULATORY) [address] [place] [address], [facility] [address] [place] [address], [place] [phone] * SCANNED - EYE EXAM (06/23/2021) Anatomical Region Laterality Modality Other Roc Tracey PA-C CHART REVIEW TABS Final Result * Hepatitis Panel, Acute (12/26/2017 2:04 PM EDT) Hepatitis B Surface Ag Non-Reacti ve Non-Reacti ve 12/26/2017 7:06 PM EDT [facility] Hep A IgM Non-Reacti ve Non-Reacti ve 12/26/2017 7:06 PM EDT [facility] Comment:Results may be false ly decreased if patient taking Biotin. Hep B C IgM Non-Reacti ve Non-Reacti ve 12/26/2017 7:06 PM EDT [facility] Comment:Results may be false ly decreased if patient taking Biotin. Hepatitis C Ab Non-Reacti ve Non-Reacti ve 12/26/2017 7:06 PM EDT [facility] Blood Venipuncture / Unknown 12/26/2017 2:04 PM EDT 12/26/2017 2:04 PM EDT us Guerline Randall FLASH WELDING MACHINE OPERATOR LAB BLOOD ORDERABLES Final Res ult [facility]
[address] [place] [address], from Last 3 Months or Most Recently Relevant to Health Maintenance Insurance [facility] Medicare [employer] PPO Care Teams Pool Table Mechanic Relationship Specialty Start Date End Date Danelle Lennon APRN [address] [place] [address] AIMEE MARIE [address] PCP - General Internal Medicine 06/18/24
--- OUTSIDE RECORDS SUMMARY | 2024-11-10 10:29 | XMS_ITS | Encounter Summary ---
Author Organization [employer] ([place], [place], [place], [place]) Address [address] [place] [address] Care Team Providers Care Job Forwarder Name Role Phone Unavailable Primary Care Provider Unavailabl e Encounter Details Date Type Department Care Team (Late st Contact Info) Description 05/01/2019 Transcribed Document [facility] Radiology [address] [place] [address] ProviderLuciano MD Social History Tobacco [...] - [facility] Aiyana ProviderMD - 05/01/2019 6:00 PM EST Chart Check - Review Order Profile Entered On: 05/01/2019 18:11 EST Performed On: 05/01/2019 17:00 EST by Nicolasa Abernathy RN Chart Check Powerplans Initiated/Discontinued as Appropriate : Yes All Active Orders Reviewed : Yes Nicolasa Abernathy RN - 05/01/2019 18:11 EST Electronically signed by Carito [facility] Conversion Geological Survey Field Assistant Cerner at 08/23/2022 11:19 AM CDT documented in this encounter Plan of Treatment Not on file documented as of this encounter Visit Diagnoses Not on filedocumented in this encounter
--- OUTSIDE RECORDS SUMMARY | 2024-11-10 10:29 | XMS_ITS | Encounter Summary ---
Author Organization [employer] ([place], [place], [place], [place]) Address [address] [place] [address] Care Team Providers Care Middle School Coach Name Role Phone Unavailable Primary Care Provider Unavailabl e Encounter Details Date Type Department Care Team (Late st Contact Info) Description 05/02/2019 Transcribed Document [facility] Radiology [address] [place] [address] Provider, Luciano Bronson MD Social [...] - [facility] Aiyana ProviderMD - 05/02/2019 1:40 PM EST On Going Discharge Planning Entered On: 05/02/2019 12:41 EST Performed On: 05/02/2019 12:40 EST by ROMELIA MCADAMS RN-Irish Moss BleacherDirector Of Trauma Progress Note Discharge Arrangements : Patient Post-Acute [...] Post Acute Providers : Yes ROMELIA MCADAMS, RN-Irish Moss Bleacher - 05/02/2019 12:40 EST documented in this encounter Plan of Treatment Not on file documented as of this encounter Visit Diagnoses Not on filedocumented in this encounter
--- OUTSIDE RECORDS SUMMARY | 2024-11-10 10:29 | XMS_ITS | Clinical Summary ---
Author Organization [facility] Address [address] [facility] [address] [place] [address] Care Team Providers Care Shirt Marker Name Role Phone CharliEv RINA Primary Care Provider [phone] Allergies Active Allergy Reactions Criticality Noted Date [...] (eight) hours if needed. Active HYDROcodone-iain taminophen ([place]) 5-325 MG tablet Take 1 tablet by [...] Visit [facility] [address] [place] [address] Nasrin Roque PA [address] [place] [address], [address] [place] [address] Health Maintenance Due Date Last [...] Insurance [employer] MEDICARE ADVANTAGE Care Teams Shirt Marker Relationship Specialty Start Date End Date Ev Augustin NP [address] [place] [address] PCP - General 12/26/19
--- OUTSIDE RECORDS SUMMARY | 2024-11-10 10:29 | XMS_ITS | Encounter Summary ---
Author Organization [employer] ([place], [place], [place], [place]) Address [address] [place] [address] Care Team Providers Care Cushion Former Name Role Phone Unavailable Primary Care Provider Unavailabl e Encounter Details Date Type Department Care Team (Late st Contact Info) Description 05/02/2019 Transcribed Document [facility] Radiology [address] [place] [address] ProviderLuciano MD Social History Tobacco [...] at home: Medicines ??? Take or apply fnyv-drk-rmsxclt and prescription medicines only as told by [...] cannot use soap and water, use hand rack carrier. ? Change your bandage as told by [...] 12/26/2008 Document Revised: 08/24/2016 Document Reviewed: 09/06/2015 [employer] Interactive Patient Education ? 2019 Elsevier Inc. [...] and water are not available, use hand rack carrier. ? Change your dressing as told by [...] or a bad smell. Medicines ??? Take hiym-ezx-uhyldbu and prescription medicines only as told by [...] urine clear or pale yellow. ? Take gcih-cdx-wvxxxmw or prescription medicines. ? Eat foods that [...] 09/03/2016 Elsevier Interactive Patient Education ? 2019 [employer] documented in this encounter Plan of Treatment Not on file documented as of this encounter Visit Diagnoses Not on filedocumented in this encounter
--- OUTSIDE RECORDS SUMMARY | 2024-11-10 10:29 | XMS_ITS | Encounter Summary ---
Author Organization [employer] ([place], [place], [place], [place]) Address [address] [place] [address] Care Team Providers Care Numerical Control Router Operator Name Role Phone Unavailable Primary Care Provider Unavailabl e Encounter Details Date Type Department Care Team (Late st Contact Info) Description 05/02/2019 Transcribed Document [facility] Neurology - [address] [facility] [address] [place] [address] Meliza Downs Jr., MD [address] [place], [place] [id number] Social History Tobacco Use Types Packs/Day Years [...]
--- OUTSIDE RECORDS SUMMARY | 2024-11-10 10:29 | XMS_ITS | Encounter Summary ---
Author Organization [employer] ([place], [place], [place], [place]) Address [address] [place] [address] Care Team Providers Care Violin Teacher Name Role Phone Unavailable Primary Care Provider Unavailabl e Encounter Details Date Type Department Care Team (Late st Contact Info) Description 05/01/2019 Transcribed Document [facility] Radiology [address] [place] [address] Provider, Luciano Bronson MD Social [...] [facility] Aiyana ProviderMD - 05/01/2019 3:26 PM EST On Going Discharge Planning Entered On: 05/01/2019 14:26 EST Performed On: 05/01/2019 14:26 EST by MERLINE NEWMAN RN-Color BufferImmigration Lawyer Progress Note Discharge Arrangements : Patient Post-Acute Information Patient Name: GERTRUDIS DALY Gender: Female : [birth year] Age: 63 Years No Post-Acute Placement(s) Listed No Post-Acute Service(s) Listed No [place] Referral(s) Listed Discharge Options Discussed with Patient : Short term rehabilitation Barriers to Discharge Identified : Clinical Condition of Patient Barriers to Discharge Unresolved : Clinical Condition of Patient MERLINE NEWMAN RN-Color Buffer - 05/01/2019 14:26 EST Narrative Progress Note Narrative Progress Note : [facility] precert still pend Historical Progress Note : Urology consulted for neurogenic bladder. Pt's choices of [facility] and [facility] are not in network with pt's payor source. D/W pt at bedside. She has chose [facility] now. Referral sent via Tc and informed Colleene. Precert intitated for acute. CM will continue to follow. ROMELIA MCADAMS RN-Color Buffer - 04/29/19 15:26:05 MERLINE NEWMAN, RN-Color Buffer - 05/01/2019 14:26 EST Electronically signed by Carito [facility] Conversion Coil Winder Hand Cerner at 08/23/2022 11:19 AM CDT documented in this encounter Plan of Treatment Not on file documented as of this encounter Visit Diagnoses Not on filedocumented in this encounter
--- OUTSIDE RECORDS SUMMARY | 2024-11-10 10:29 | XMS_ITS | Encounter Summary ---
Author Organization [email or web address] ([place], [place], [place], [place]) Address [address] [place] [address] Care Team Providers Care Action Finisher Name Role Phone Unavailable Primary Care Provider Unavailabl e Encounter Details Date Type Department Care Team (Late st Contact Info) Description 05/02/2019 Transcribed Document [facility] [address] [facility] [address] [place] [address] Meliza Downs Jr., MD [address] [id number] Social History Tobacco Use Types Packs/Day Years [...] Q8H, Routine, Start 04/27/19 11:40:00 EST (MELIZA DOWSN) Sequential Compression Device Start: 04/25/19 17:44:00 EST, [...] 100 mg= 2 Cap, Oral, TID Metamucil [place] Smooth Texture Sugar Free, 1 Packet, Oral, [...] Percent Man 24 % 05/02/2019 03:02 EST [place] Percent Man 8 % (High) 05/02/2019 03:02 [...]
== END 2024-11-10 23:59 ==
LOC: RAD 10:25
PROVIDERS: PCP Nurse Practitioner Family; Visit Provider Internal Medicine Pulmonary Disease
DX: R06.02 Shortness of breath (principal)
CPT/HCPCS: 71046

== ENCOUNTER 2024-12-03 12:27 | Emergency (ER) | payer MEDICARE, SELFPAY ==
[2024-12-03 12:29] VITALS: BP 142/82; PULSE 92; RESP 18; TEMP 36.7; O2SAT 98; BMI 34.2
--- NOTE | 2024-12-03 12:36 | XR_ITS ---
FINAL REPORT CLINICAL HISTORY: fall at home COMPARISON: None FINDINGS: 3 views of the right knee were obtained. There is no acute fracture or dislocation. There is sharpening of the tibial spines. There is no acute soft tissue abnormality. IMPRESSION: No acute abnormality identified. Reviewed, Interpreted and Dictated by Everett Nails MD Transcribed by Nelly Orozco Authenticated and . [facility]
--- NOTE | 2024-12-03 12:36 | XR_ITS ---
FINAL REPORT CLINICAL HISTORY: fall at home COMPARISON: None FINDINGS: RIGHT ELBOW 3 views were obtained. There is no acute fracture or dislocation. There is no joint effusion. The joint spaces are intact. There is no soft tissue abnormality. IMPRESSION: No acute bony abnormality. Reviewed, Interpreted and Dictated by Everett Nails MD Transcribed by Nelly Orozco Authenticated and . [facility]
--- NOTE | 2024-12-03 12:36 | XR_ITS ---
FINAL REPORT CLINICAL HISTORY: fall at home COMPARISON: None FINDINGS: RIGHT WRIST Three views demonstrate no acute fracture or dislocation. There are mild hypertrophic changes at the basal joint. Soft tissue edema is seen over the dorsum of the wrist. IMPRESSION: Soft tissue edema without acute bony abnormality. Reviewed, Interpreted and Dictated by Everett Nails MD Transcribed by Nelly Orozco Authenticated and [facility]
--- NOTE | 2024-12-03 12:36 | XR_ITS ---
FINAL REPORT CLINICAL HISTORY: fall at home COMPARISON: None FINDINGS: RIGHT SHOULDER Three views demonstrate no acute fracture or dislocation. There are mild to moderate hypertrophic changes at the acromioclavicular joint. The soft tissues are unremarkable. IMPRESSION: No acute process. Reviewed, Interpreted and Dictated by Everett Nails MD Transcribed by Nelly Orozco Authenticated and [facility]
--- OUTSIDE RECORDS SUMMARY | 2024-12-03 12:46 | XMS_ITS | Encounter Summary ---
Author Organization [employer] ([place], [place], [place], [place]) Address [address] [place] [address] Care Team Providers Care Rubber Roller Grinder Name Role Phone Unavailable Primary Care Provider Unavailabl e Encounter Details Date Type Department Care Team (Late st Contact Info) Description 04/30/2019 Transcribed Document [facility] [address] [facility] 200 [place] [address] Lane Ortiz Jr., MD [address] [place] [address] 200 [place] [address] Social History Tobacco Use Types Packs/Day Years [...] 100 mg= 2 Cap, Oral, TID Metamucil Brock Smooth Texture Sugar Free, 1 Packet, Oral, [...] Lymph # 1.50 x10(3)/uL 04/29/2019 09:11 EST [place] % 7.0 % 04/30/2019 03:51 EST [place] % 7.8 % 04/29/2019 09:11 EST [place] # 0.59 K/uL 04/30/2019 03:51 EST [place] # 0.71 K/uL 04/29/2019 09:11 EST Eos [...]
--- OUTSIDE RECORDS SUMMARY | 2024-12-03 12:46 | XMS_ITS | Encounter Summary ---
[facility] Address [address] [place] [address] Care Team Providers Care Waterproof Coating Machine Tender Name Role Phone Danelle Lennon APRN Primary Care Provider [phone] Encounter Details Date Type Department Care Team (Late st Contact Info) Description 06/20/2024 Results Follow-Up [facility] ENDOCRINOLOG[facility] [address] Ad Mazariegos MD [address] [place] [address] Social History Tobacco Use Types Packs/Day Years [...] documented as of this encounter Care Teams Waterproof Coating Machine Tender Relationship Specialty Start Date End Date Danelle Lennon APRN [address] [address] [place] [address] PCP - General Internal Medicine 06/18/24 documented as of this encounter
--- OUTSIDE RECORDS SUMMARY | 2024-12-03 12:46 | XMS_ITS | Encounter Summary ---
Author Organization [employer] ([place], [place], [place], [place]) Address [address] [place] [address] Care Team Providers Care Family Law Paralegal Name Role Phone Unavailable Primary Care Provider Unavailabl e Encounter Details Date Type Department Care Team (Late st Contact Info) Description 04/30/2019 Transcribed Document [facility] Radiology 1 [place] [address] Karina Murphy MD [address] [place] [address] Social History Tobacco Use Types Packs/Day [...] incentive spirometer. says trying to go to [facility] HPI: 63 y/o WF admitted s/p [...] Results (Current Encounter/Past 24 Hours) Bun/Creatinine 32.0 AL 04/30/2019 05:35 Creatinine Level 0.50 mg/dL LOW 04/30/2019 05:35 eGFR NonAfrican >60 mL/min/1.73m2 04/30/2019 05:35 eGFR >60 mL/min/1.73m2 04/30/2019 05:35 Sodium Level 138 mmol/L 04/30/2019 05:35 Potassium Level 3.4 mmol/L LOW 04/30/2019 05:35 Chloride Level 107 mmol/L 04/30/2019 05:35 Carbon Dioxide Level 27 mmol/L 04/30/2019 05:35 Anion Gap 7 LOW 04/30/2019 05:35 Blood Urea Nitrogen 16 mg/dL 04/30/2019 05:35 Glucose Level 146 mg/dL [place] 04/30/2019 05:35 Calcium Level 8.9 mg/dL 04/30/2019 05:35 Coagulation Results (Current Encounter/Past 24 Hours) No Coagulation Results Found (Past 24 Hours) Creatinine Clearance (Current Encounter/Past 24 Hours) Creatinine Level 0.50 mg/dL LOW 04/30/2019 05:35 Bun/Creatinine 32.0 AL 04/30/2019 05:35 Estimated Creatinine Clearance 92.27 mL/Min [...]
--- OUTSIDE RECORDS SUMMARY | 2024-12-03 12:46 | XMS_ITS | Encounter Summary ---
Author Organization [employer] ([place], [place], [place], [place]) Address [address] [place] [address] Care Team Providers Care Duct Layer Helper Name Role Phone Unavailable Primary Care Provider Unavailabl e Encounter Details Date Type Department Care Team (Late st Contact Info) Description 05/01/2019 Transcribed Document [facility] Radiology 1 [place] [address] Karina Murphy MD [address] [place] [address] Social History Tobacco Use Types Packs/Day [...] 5 dayas before bladder training. Plan is [facility] placement today. No f'/c/s. No n/v/d. [...] Results (Current Encounter/Past 24 Hours) Bun/Creatinine 36.0 MD 05/01/2019 05:26 Creatinine Level 0.50 mg/dL LOW 05/01/2019 05:26 eGFR NonAfrican >60 mL/min/1.73m2 05/01/2019 05:26 eGFR >60 mL/min/1.73m2 05/01/2019 05:26 Sodium Level 137 mmol/L 05/01/2019 05:26 Potassium Level 3.7 mmol/L 05/01/2019 05:26 Chloride Level 105 mmol/L 05/01/2019 05:26 Carbon Dioxide Level 28 mmol/L 05/01/2019 05:26 Anion Gap 8 LOW 05/01/2019 05:26 Blood Urea Nitrogen 18 mg/dL 05/01/2019 05:26 Glucose Level 152 mg/dL MD 05/01/2019 05:26 Calcium Level 9.1 mg/dL 05/01/2019 05:26 Magnesium Level 2.3 mg/dL 04/30/2019 10:53 Coagulation Results (Current Encounter/Past 24 Hours) No Coagulation Results Found (Past 24 Hours) Creatinine Clearance (Current Encounter/Past 24 Hours) Creatinine Level 0.50 mg/dL [facility] 05/01/2019 05:26 Bun/Creatinine 36.0 MD 05/01/2019 05:26 Labs Most Recent Last 28 [...] to atelectasis hypokalemia- improved post replacement. PLAN [facility] transfer today No further Potassium replacement [...]
--- OUTSIDE RECORDS SUMMARY | 2024-12-03 12:46 | XMS_ITS | Encounter Summary ---
[facility] Organization [facility] Address [address] [place] [address] Care Team Providers Care Telecommunications Specialist Name Role Phone Danelle Lennon APRN Primary Care Provider [phone] Encounter Details Date Type Department Care Team (Late st Contact Info) Description 06/18/2024 Results Follow-Up [facility] ENDOCRINOLOGY [address] [address] Bridget Valdez PA-C [address] [address] Social History Tobacco Use Types Packs/Day Years [...] documented as of this encounter Care Teams Telecommunications Specialist Relationship Specialty Start Date End Date Danelle Lennon APRN [address] [place] [address] PCP - General Internal Medicine 06/18/24 documented as of this encounter
--- OUTSIDE RECORDS SUMMARY | 2024-12-03 12:46 | XMS_ITS | Referral Summary ---
Author Organization [employer] [facility] ([place], [place], [place], [place]) Address [address] [place] [address] Care Team Providers Care Underwater Hunter Trapper Name Role Phone Unavailable Primary Care Provider [...]
--- OUTSIDE RECORDS SUMMARY | 2024-12-03 12:46 | XMS_ITS | Encounter Summary ---
Author Organization [employer] ([place], [place], [place], [place]) Address [address] [place] [address] Care Team Providers Care Library Serials Assistant Name Role Phone Unavailable Primary Care Provider Unavailabl e Encounter Details Date Type Department Care Team (Late st Contact Info) Description 04/30/2019 Transcribed Document [facility] Radiology [address] [place] [address] Provider, Luciano Bronson MD Social History Tobacco Use Types Packs/Day Years Used Date Smoking Tobacco: Never Assessed Comments Unknown Sex and Gender Information Value Date Recorded Sex Assigned at Not on file Legal Sex Female 6:01 PM CDT Gender Identity Not on file Sexual Orientation Not on file documented as of this encounter Miscellaneous Notes * Cerner Conversion Note - [facility] Aiyana ProviderMD - 04/30/2019 8:06 AM EST UM Authorization Entered On: 04/30/2019 7:07 EST Performed On: 04/30/2019 7:06 EST by Dayna Rios, Industrial Furnace Fabricator Primary Insurance Authorization Authorization and Policy Numbers : Insurance 1 Health Plan: [employer] MED[employer]ARE REPL Policy Number: [id number] Authorization Number: [id number] Insurance Primary Name : Tanya [id number] Authorization Status-Primary : Admit approved Authorization Number-Primary : [id number] Number of Days Authorized-Primary : 5 Day(s) [...] with tanya requesting clinical be faxed to [phone]. clinical faxed per cerner (Gali Newman, Rn-Utilization Review 04/28/2019 15:17) Comment 3: lvm with brigette lui with tanya for c/s . acb (Gali Newman, Rn-Utilization Review 04/28/2019 13:51) Comment 4: clinicals faxed via cerner for cont stay (only 1 day approved) (BULMARO DUONG, RN-Utilization Review 04/26/2019 13:11) Comment 5: per [facility]AR inpt approved 1 day auth# [id number] (FRANCY MILIAN, Supervisor Jewelry Department 04/24/2019 13:26) Dayna Rios, Industrial Furnace Fabricator - 04/30/2019 7:06 EST documented in this encounter Plan of Treatment Not on file documented as of this encounter Visit Diagnoses Not on filedocumented in this encounter
--- OUTSIDE RECORDS SUMMARY | 2024-12-03 12:46 | XMS_ITS | Encounter Summary ---
Author Organization [employer] ([place], [place], [place], [place]) Address [address] [place] [address] Care Team Providers Care Leaf Conditioner Name Role Phone Unavailable Primary Care Provider Unavailabl e Encounter Details Date Type Department Care Team (Late st Contact Info) Description 04/30/2019 Transcribed Document [facility] Neurology [facility] [address] [facility] [facility] [address] [place] [address] Meliza Downs Jr., MD [address] [place] [address] 200 [place] [address] Social History Tobacco Use Types Packs/Day Years [...]
--- OUTSIDE RECORDS SUMMARY | 2024-12-03 12:46 | XMS_ITS | Encounter Summary ---
Author Organization [employer] ([place], [place], [place], [place]) Address [address] [place] [address] Care Team Providers Care Shuttle Final Inspector Name Role Phone Unavailable Primary Care Provider Unavailabl e Encounter Details Date Type Department Care Team (Late st Contact Info) Description 05/01/2019 Transcribed Document [facility] [address] [facility] [address] [place] [address] Lane Ortiz Jr., MD [address] [place] [address] [address] [place] [address] Social History Tobacco Use Types Packs/Day Years [...] 100 mg= 2 Cap, Oral, TID Metamucil Riley Smooth Texture Sugar Free, 1 Packet, Oral, [...] Lymph # 1.90 x10(3)/uL 05/01/2019 03:10 EST [place] % 7.5 % 05/01/2019 03:10 EST [place] # 0.62 K/uL 05/01/2019 03:10 EST Eos [...]
--- OUTSIDE RECORDS SUMMARY | 2024-12-03 12:46 | XMS_ITS | Encounter Summary ---
Author Organization [employer] ([place], [place], [place], [place]) Address [address] [place] [address] Care Team Providers Care Paperboard Box Maker Name Role Phone Unavailable Primary Care Provider Unavailabl e Encounter Details Date Type Department Care Team (Late st Contact Info) Description 05/01/2019 Transcribed Document [facility] Radiology 1 [place] [address] Provider, Luciano Bronson MD Social [...] Note - [facility] Aiyana ProviderMD - 05/01/2019 12:50 PM EST [...] YOANNA GUERRERO, PT - 05/01/2019 11:50 EST [facility] Goals Mobility/Bed Mobility LTG PT Grid Goal [...]
--- OUTSIDE RECORDS SUMMARY | 2024-12-03 12:46 | XMS_ITS | Encounter Summary ---
Author Organization [employer] ([place], [place], [place], [place]) Address [address] [place] [address] Care Team Providers Care Labor Relations Or Personnel Negotiator Name Role Phone Unavailable Primary Care Provider Unavailabl e Encounter Details Date Type Department Care Team (Late st Contact Info) Description 04/15/2019 Transcribed Document [facility] Radiology 1 [place] [address] Provider, Luciano Bronson MD Social History Tobacco Use Types Packs/Day Years Used Date Smoking Tobacco: Never Assessed Comments Unknown Sex and Gender Information Value Date Recorded Sex Assigned at Not on file Legal Sex Female 6:01 PM CDT Gender Identity Not on file Sexual Orientation Not on file documented as of this encounter Miscellaneous Notes * Cerner Conversion Note - [facility] Aiyana ProviderMD - 04/15/2019 10:16 AM EST PAT Adult Entered On: 04/15/2019 9:24 EST Performed On: 04/15/2019 9:16 EST by TAI SHARMA RN Vital Measurements Temperature Source : [...] Source : Measured Height Entry Format : [place] Height, Feet : 5 ft(Converted to: 152 cm, 60 Inch) Height, Inches : 2 Inch(Converted to: 0 ft 2 Inch, 5.08 cm) Clinical Height : 157.48 cm Weight Source : Standing scale Weight Entry Format : [place] Clinical Dosing Weight : 82.14 kg Weight, Pounds : 180.7 lb Body Surface Area (BSA) : 1.83 m2 Body Mass Index : 33.1 kg/m2 (HI) [place] Body Weight : 50 kg TIA SHARMA [...] TIA SHARMA RN - 04/15/2019 9:16 EST [place] Suicide Severity Rating Scale (C-SSRS) CSSRS Past [...] #2 Relationship : daughter Primary Language : Faroese Preferred Communication Mode : Verbal Communication Barrier [...] 04/15/2019 9:16 EST Electronically signed by Carito [facility] Conversion Flitch Hanger Cerner at 08/23/2022 11:18 AM CDT documented in this encounter Plan of Treatment Not on file documented as of this encounter Visit Diagnoses Not on filedocumented in this encounter
--- OUTSIDE RECORDS SUMMARY | 2024-12-03 12:47 | XMS_ITS | Encounter Summary ---
Author Organization [employer] ([place], [place], [place], [place]) Address [address] [place] [address] Care Team Providers Care Mutuel Cashier Name Role Phone Unavailable Primary Care Provider Unavailabl e Encounter Details Date Type Department Care Team (Late st Contact Info) Description 04/27/2019 Transcribed Document [facility] Radiology 1 [place] [address] Alverto Murphy MD [facility] [address] [address] Social History Tobacco Use Types [...]
--- OUTSIDE RECORDS SUMMARY | 2024-12-03 12:47 | XMS_ITS | Encounter Summary ---
Author Organization [employer] ([place], [place], [place], [place]) Address [address] [place] [address] Care Team Providers Care Automation Lead Name Role Phone Unavailable Primary Care Provider Unavailabl e Encounter Details Date Type Department Care Team (Late st Contact Info) Description 04/27/2019 Transcribed Document [facility] Radiology 1 [place] [address] ProviderLuciano MD Social History Tobacco Use Types Packs/Day Years Used Date Smoking Tobacco: Never Assessed Comments Unknown Sex and Gender Information Value Date Recorded Sex Assigned at Not on file Legal Sex Female 6:01 PM CDT Gender Identity Not on file Sexual Orientation Not on file documented as of this encounter Miscellaneous Notes * Cerner Conversion Note - [facility] Historical ProviderMD - 04/27/2019 3:00 AM EST Communication Technician Details Entered On: 04/27/2019 0:30 EST Performed On: 04/27/2019 2:00 EST by Daniela Buckenr RN Order Details Transport Mode Order Detail [...]
--- OUTSIDE RECORDS SUMMARY | 2024-12-03 12:47 | XMS_ITS | Encounter Summary ---
Author Organization [employer] ([place], [place], [place], [place]) Address [address] [place] [address] Care Team Providers Care Senior Ios Developer Name Role Phone Unavailable Primary Care Provider Unavailabl e Encounter Details Date Type Department Care Team (Late st Contact Info) Description 04/27/2019 Transcribed Document [facility] Radiology 1 [place] [address] Provider yvon Bronson MD Social History Tobacco Use Types Packs/Day Years Used Date Smoking Tobacco: Never Assessed Comments Unknown Sex and Gender Information Value Date Recorded Sex Assigned at Not on file Legal Sex Female 6:01 PM CDT Gender Identity Not on file Sexual Orientation Not on file documented as of this encounter Miscellaneous Notes * Cerner Conversion Note - [facility] Historical ProviderMD - 04/27/2019 6:00 PM EST Chart Check - Review Order Profile Entered On: 04/27/2019 18:57 EST Performed On: 04/27/2019 17:00 EST by SHAWNA WISE RN Chart Check Powerplans Initiated/Discontinued as Appropriate : Yes All Active Orders Reviewed : Yes SHAWNA WISE RN - 04/27/2019 18:57 EST Electronically signed by Carito [facility] Conversion Manufacturing Business Analyst Cerner at 08/23/2022 11:19 AM CDT documented in this encounter Plan of Treatment Not on file documented as of this encounter Visit Diagnoses Not on filedocumented in this encounter
--- OUTSIDE RECORDS SUMMARY | 2024-12-03 12:47 | XMS_ITS | Encounter Summary ---
Author Organization [employer] ([place], [place], [place], [place]) Address [address] [place] [address] Care Team Providers Care Placement Director Name Role Phone Unavailable Primary Care Provider Unavailabl e Encounter Details Date Type Department Care Team (Late st Contact Info) Description 04/23/2019 Transcribed Document [facility] Radiology 1 [place] [address] Provider, Luciano Bronson MD Social [...] Conversion Note - [facility] Aiyana ProviderMD - 04/23/2019 7:03 PM EST [...] 04/23/2019 18:03 EST Electronically signed by Carito [facility] Conversion Supervisor Transcribing Operators Cerner at 08/23/2022 11:19 AM CDT documented in this encounter Plan of Treatment Not on file documented as of this encounter Visit Diagnoses Not on filedocumented in this encounter
--- OUTSIDE RECORDS SUMMARY | 2024-12-03 12:47 | XMS_ITS | Encounter Summary ---
Author Organization [employer] ([place], [place], [place], [place]) Address [address] [place] [address] Care Team Providers Care Control Systems Engineer Name Role Phone Unavailable Primary Care Provider Unavailabl e Encounter Details Date Type Department Care Team (Late st Contact Info) Description 04/29/2019 Transcribed Document [facility] [address] [facility] 200 [place] [address] Meliza Downs Jr., MD [address] [place] [address] 200 [place] [address] Social History Tobacco Use Types Packs/Day Years [...] for leak. Continue PT. Will need rehab. [place] goodman. Urology to see today. VTE Prophylaxis [...] 100 mg= 2 Cap, Oral, TID Metamucil [place] Smooth Texture Sugar Free, 1 Packet, Oral, [...]
--- OUTSIDE RECORDS SUMMARY | 2024-12-03 12:47 | XMS_ITS | Encounter Summary ---
Author Organization [employer] ([place], [place], [place], [place]) Address [address] [place] [address] Care Team Providers Care Plant Anatomy Teacher Name Role Phone Unavailable Primary Care Provider Unavailabl e Encounter Details Date Type Department Care Team (Late st Contact Info) Description 04/25/2019 Transcribed Document [facility] Radiology 1 [place] [address] Provider, Luciano Bronson MD Social [...] mom Support Person/Pt Rep Contact Information : [phone] Want Family/Rep/Phys Notified of Admit : No Emergency Contact #1 : [place] Emergency Contact #1 cell Emergency Contact #1 Relationship : Emergency Contact #2 : Kandi Burt Emergency Contact #2 cell Emergency Contact #2 Relationship : daughter Primary Language : Albanian Preferred Communication Mode : Verbal Communication Barrier [...] Scale Risk Level : 25-45 Medium Risk Lynch Fall Interventions : Adequate lighting, Assistive devices [...] Source : Measured Height Entry Format : [place] Height, Feet : 5 ft(Converted to: 152 cm, 60 Inch) Height, Inches : 2 Inch(Converted to: 0 ft 2 Inch, 5.08 cm) Clinical Height : 157.48 cm Weight Source : Standing scale Weight Entry Format : [place] Clinical Dosing Weight : 82.14 kg Weight, Pounds : 180.7 lb Body Surface Area (BSA) : 1.83 m2 Body Mass Index : 33.1 kg/m2 (HI) [place] Body Weight : 50 kg Daniela Buckner [...] Daniela Buckner RN - 04/25/2019 19:52 EST [place] Suicide Severity Rating Scale (C-SSRS) CSSRS Past [...] - 04/25/2019 19:52 EST Electronically signed by Luciano [facility]ate Conversion Formation Fracturing Operator Cerner at 08/23/2022 11:19 AM CDT documented in this encounter Plan of Treatment Not on file documented as of this encounter Visit Diagnoses Not on filedocumented in this encounter
--- OUTSIDE RECORDS SUMMARY | 2024-12-03 12:47 | XMS_ITS | Encounter Summary ---
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 LAB SUPPORT TECHNICIAN: Melanie Emmanuel PA-C. ANESTHESIA: Total IV anesthesia. [...] root retraction, dural closure, and wound closure. /[id number] Lane Ortiz Jr, MD RDO/AQ / RDO / MODL /[id number] documented in this encounter Plan of Treatment Not on file documented as of this encounter Visit Diagnoses Not on filedocumented in this encounter
--- OUTSIDE RECORDS SUMMARY | 2024-12-03 12:47 | XMS_ITS | Encounter Summary ---
Author Organization [employer] ([place], [place], [place], [place]) Address [address] [place] [address] Care Team Providers Care Mri Tech Name Role Phone Unavailable Primary Care Provider Unavailabl e Encounter Details Date Type Department Care Team (Late st Contact Info) Description 04/26/2019 Transcribed Document [facility] Radiology [address] [place] [address] ProviderLuciano MD Social History Tobacco [...] - [facility] Aiyana ProviderMD - 04/26/2019 3:00 AM EST Shaping Machine Tender Details Entered On: 04/26/2019 0:18 EST Performed [...] Daniela Buckner RN - 04/26/2019 0:18 EST Electronically signed by Luciano Arzate Conversion Operations Management Trainee Cerner at 08/23/2022 11:19 AM CDT documented in this encounter Plan of Treatment Not on file documented as of this encounter Visit Diagnoses Not on filedocumented in this encounter
--- OUTSIDE RECORDS SUMMARY | 2024-12-03 12:47 | XMS_ITS | Encounter Summary ---
Author Organization [employer] ([place], [place], [place], [place]) Address [address] [place] [address] Care Team Providers Care Front Office Help Name Role Phone Unavailable Primary Care Provider Unavailabl e Encounter Details Date Type Department Care Team (Late st Contact Info) Description 04/28/2019 Transcribed Document [facility] Radiology [address] [place] [address] Provider, Luciano Bronson MD Social [...] Note - [facility] Aiyana ProviderMD - 04/28/2019 2:49 PM EST UM Authorization Entered On: 04/28/2019 13:49 EST Performed On: 04/28/2019 13:49 EST by Gali Newman Rn-Utilization Review Primary Insurance Authorization Authorization and Policy Numbers : Insurance 1 Health Plan: [employer] MEDICARE REPL Policy Number: [id number] Authorization Number: [id number] Insurance Primary [facility] [id number] Authorization Status-Primary : Awaiting callback Authorization Number-Primary : [id number] Authorized Service Begin Date-Primary : 04/25/2019 EST Historical Authorization Comments-Primary : Comment 1: clinicals faxed via [employer] for cont stay (only 1 day approved) (BULMARO DUONG, RN-Utilization Review 04/26/2019 13:11) Comment 2: per [employer] inpt approved 1 day auth# [id number] (FRANCY MILIAN, Organ Builder 04/24/2019 13:26) Gali Newman Rn-Utilization Review - 04/28/2019 13:49 EST Electronically signed by Carito, [facility] Conversion Turbo Generator Oiler Cerner at 08/23/2022 11:19 AM CDT documented in this encounter Plan of Treatment Not on file documented as of this encounter Visit Diagnoses Not on filedocumented in this encounter
--- OUTSIDE RECORDS SUMMARY | 2024-12-03 12:47 | XMS_ITS | Encounter Summary ---
Author Organization [employer] ([place], [place], [place], [place]) Address [address] [place] [address] Care Team Providers Care Clinician Oncology Name Role Phone Unavailable Primary Care Provider Unavailabl e Encounter Details Date Type Department Care Team (Late st Contact Info) Description 04/29/2019 Transcribed Document [facility] Radiology 1 [place] [address] Karina Murphy MD [address] [place] [id number] Social History Tobacco Use Types Packs/Day [...] 1955 Associated Diagnoses: None Author: GERALDINE KESSLER, ASSISTANT COMMUNITY MANAGER-GUNNAR S: Patient found lying in bed. A/O. [...] mg/dL 04/29/2019 09:47 Glucose Level 131 mg/dL [place] 04/29/2019 09:47 Calcium Level 8.8 mg/dL 04/29/2019 [...] Results (Current Encounter/Past 24 Hours) Bun/Creatinine 22.0 OH 04/29/2019 09:47 Creatinine Level 0.50 mg/dL LOW 04/29/2019 09:47 eGFR NonAfrican >60 mL/min/1.73m2 04/29/2019 09:47 eGFR >60 mL/min/1.73m2 04/29/2019 09:47 Sodium Level 138 mmol/L 04/29/2019 09:47 Potassium Level 3.3 mmol/L LOW 04/29/2019 09:47 Chloride Level 104 mmol/L 04/29/2019 09:47 Carbon Dioxide Level 31 mmol/L 04/29/2019 09:47 Anion Gap 6 LOW 04/29/2019 09:47 Blood Urea Nitrogen 11 mg/dL 04/29/2019 09:47 Glucose Level 131 mg/dL [place] 04/29/2019 09:47 Calcium Level 8.8 mg/dL 04/29/2019 09:47 Coagulation Results (Current Encounter/Past 24 Hours) No Coagulation Results Found (Past 24 Hours) Creatinine Clearance (Current Encounter/Past 24 Hours) Creatinine Level 0.50 mg/dL LOW 04/29/2019 09:47 Bun/Creatinine 22.0 OH 04/29/2019 09:47 Estimated Creatinine Clearance 92.27 mL/Min [...] per Dr. Ortiz; family requesting placement [place] [facility] consulted given neurogenic bladder and retention [...]
--- OUTSIDE RECORDS SUMMARY | 2024-12-03 12:47 | XMS_ITS | Encounter Summary ---
Author Organization [employer] ([place], [place], [place], [place]) Address [address] [place] [address] Care Team Providers Care Translator/Interpreter Name Role Phone Unavailable Primary Care Provider Unavailabl e Encounter Details Date Type Department Care Team (Late st Contact Info) Description 04/28/2019 Transcribed Document [facility] Radiology 1 [place] [address] Provider, Luciano Bronson MD Social [...] * Cerner Conversion Note - [facility] Aiyana ProviderMD - 04/28/2019 9:31 AM EST [...] with Hanna Murphy MD Electronically signed by [facility] Conversion Hand Riveter Cerner at 08/23/2022 11:19 AM CDT documented in this encounter Plan of Treatment Not on file documented as of this encounter Visit Diagnoses Not on filedocumented in this encounter
--- OUTSIDE RECORDS SUMMARY | 2024-12-03 12:47 | XMS_ITS | Encounter Summary ---
Author Organization [employer] ([place], [place], [place], [place]) Address [address] [place] [address] Care Team Providers Care Coordinator Hotels Name Role Phone Unavailable Primary Care Provider Unavailabl e Encounter Details Date Type Department Care Team (Late st Contact Info) Description 04/25/2019 Transcribed Document [facility] Radiology 1 [place] [address] Provider, yvon Bronson MD Social [...] [facility] Aiyana ProviderMD - 04/25/2019 1:[address] [facility] Main OR IntraOp Summary Primary Physician: MELIZA DOWNS MD-SNU Finalized Date/Time: 04/27/19 12:47:33 Pt. Name: KANG DALYGHANSHYAM Gilbert /Sex: 1955 Female Med Rec #: [id number] Physician: MELIZA DOWNS MD-NIYA Financial #: [id number] Pt. Type: I Room/Bed: [facility] Admit/Disch: 04/25/19 06:38:00 - Institution: [facility] IntraOp Case Attendance Entry 1 Entry 2 Entry 3 Case Attendee MELIZA DOWNS MD-SNU Burdine, Teresa A, RN BRADY, CHRISTINA M, RN Role Performed Surgeon/Proceduralist, Flatbed Driver, First Flatbed Driver, First First Time In 04/25/19 11:21:00 04/25/19 11:21:00 04/25/19 11:21:00 Time Out 04/25/19 17:43:00 04/25/19 17:43:00 04/25/19 12:15:00 Procedure Lumbar Laminectomy Lumbar Laminectomy Lumbar Laminectomy Other Attendee lunch relief Superficial Wound Closed By: Last Modified By: Lida Mitchell RN Burdine, Teresa A, Lida Ho RN 04/25/19 17:44:12 04/25/19 17:44:12 04/25/19 17:44:12 Entry 4 Entry 5 Entry 6 Case Attendee JACKSON PATTERSON, [facility] Oscar MONAHAN Mark, DAHLIA BURRIS-JEB Role Performed Scrub, First Physician store assistant TRANSMITTER CHIEF/Nurse Medical Education Coordinator Time In 04/25/19 11:21:00 04/25/19 11:21:00 04/25/19 [...] TSAI MD-Courtney Arenas, OTHER, ATTENDEE #1 Diagnostic Title Investigator Role Performed Anesthesiologist of Preschool Lead Teacher Other Record Time In 04/25/19 11:21:00 04/25/19 [...] WASSON, SANDRA D RN Technologist Role Performed Preschool Lead Teacher Scrub, Second Time In 04/25/19 13:10:00 04/25/19 13:00:00 Time Out 04/25/19 14:38:00 04/25/19 14:15:00 Procedure Lumbar Laminectomy Lumbar Laminectomy Other Attendee LUNCH RELIEF Superficial Wound Closed By: Last Modified By: Lida Mitchell RN Burdine, Teresa A, RN 04/25/19 17:44:12 04/25/19 17:44:12 [facility] IntraOp Case Attendance Audit 04/25/19 17:44:12 Processing Clerk: [id number] Modifier: [id number] <+> Time Out 1 <*> Procedure [...] 11 <*> Procedure Lumbar Laminectomy 04/25/19 16:08:03 Processing Clerk: [id number] Modifier: [id number] <+> Time Out 3 <*> Procedure Lumbar Laminectomy 04/25/19 14:51:38 Processing Clerk: [id number] Modifier: [id number] <+> Time Out 10 <*> Procedure Lumbar Laminectomy 04/25/19 14:16:00 Processing Clerk: [id number] Modifier: [id number] <+> Time Out 11 <*> Procedure Lumbar Laminectomy 04/25/19 13:35:44 Processing Clerk: [id number] Modifier: [id number] <+> 10 Case Attendee <+> 10 Role Performed <+> 10 Time In <+> 10 Procedure <+> 10 Other Attendee <+> 11 Case Attendee <+> 11 Role Performed <+> 11 Time In <+> 11 Procedure 04/25/19 12:44:43 Processing Clerk: [id number] Modifier: [id number] <+> 1 Procedure 2 <*> Procedure Lumbar Laminectomy 3 <*> Procedure Lumbar Laminectomy 4 <*> Procedure Lumbar Laminectomy 5 <*> Procedure Lumbar Laminectomy 6 <*> Procedure Lumbar Laminectomy 7 <*> Procedure Lumbar Laminectomy 8 <*> Procedure Lumbar Laminectomy 9 <*> Procedure Lumbar Laminectomy 04/25/19 12:43:20 Processing Clerk: [id number] Modifier: [id number] <*> Procedure Lumbar Laminectomy 3 <*> Procedure Lumbar Laminectomy 4 <*> Procedure Lumbar Laminectomy 5 <*> Procedure Lumbar Laminectomy 6 <*> Procedure Lumbar Laminectomy 7 <*> Procedure Lumbar Laminectomy 8 <*> Procedure Lumbar Laminectomy 9 <+> Time In 9 <*> Procedure Lumbar Laminectomy 04/25/19 12:25:13 Processing Clerk: [id number] Modifier: [id number] <*> Procedure Lumbar Laminectomy 3 <*> Procedure Lumbar Laminectomy 4 <*> Procedure Lumbar Laminectomy 5 <*> Procedure Lumbar Laminectomy 6 <*> Procedure Lumbar Laminectomy 7 <*> Procedure Lumbar Laminectomy 8 <+> Time In 8 <*> Procedure Lumbar Laminectomy <+> 9 Case Attendee <+> 9 Role Performed <+> 9 Procedure <+> 9 Other Attendee 04/25/19 12:23:07 Processing Clerk: [id number] Modifier: [id number] <+> 1 Time In 2 <+> Time [...] <+> 8 Role Performed <+> [address] [facility] IntraOp Case Times Entry 1 Patient In Room Time 04/25/19 11:21:00 Out Room Time 04/25/19 17:43:00 Anesthesia Start Time 04/25/19 11:21:00 Stop Time 04/25/19 17:43:00 Surgery / Procedure Times Start Time 04/25/19 12:05:00 Stop Time 04/25/19 17:29:00 Last Modified By: Lida Mitchell RN 04/25/19 17:43:33 [facility] IntraOp Case Times Audit 04/25/19 17:43:33 Processing Clerk: [id number] Modifier: [id number] <+> 1 Out Room Time <+> 1 Stop Time <+> [address] [facility] IntraOp Cautery Entry 1 Entry 2 ESU Identification Cautery Type Monopolar ESU BiPolar ESU Cautery Type Comments [place] Number [id number] ID Type Hospital Number Hospital Number Cautery [...] Teresa A, RN 04/25/19 12:24:11 04/25/19 12:25:58 [facility] IntraOp Cautery Audit 04/25/19 12:25:58 Processing Clerk: [id number] Modifier: [id number] <+> 2 Cautery Type <+> 2 Coag Setting <+> 2 Cut Setting <+> 2 ID Number <+> [address] [facility] IntraOp Communication Entry 1 Entry 2 Entry [...] Modified By: Lida Mitchell RN 04/25/19 16:58:34 [facility] IntraOp Communication Audit 04/25/19 16:58:34 Processing Clerk: [id number] Modifier: [id number] <*> Comment CLOSING 04/25/19 16:33:59 Processing Clerk: [id number] Modifier: [id number] <+> 3 Communication By <+> 3 Date and Time <+> 3 Communication To <+> 3 Comment <+> 4 Communication By <+> 4 Date and Time <+> 4 Communication To <+> 4 Comment 04/25/19 13:43:33 Processing Clerk: [id number] Modifier: [id number] <+> 2 Communication By <+> 2 Date and Time <+> 2 Communication To <+> [address] [facility] IntraOp Counts Verification Entry 1 Procedure Lumbar Laminectomy Count Info Count Type Sponge, Sharps, Miscellaneous Counts Verification Baseline/pre-procedure Sequence Counts Performed By Count Performed By JACKSON PATTERSON ST (Scrub) Count Performed By Lida Mitchell RN (RN) Last Modified By: Lida Mitchell RN 04/25/19 12:07:52 [facility] IntraOp Counts Final Entry 1 Procedure Lumbar Laminectomy Final Count Info Count Type Sponge, Sharps, Miscellaneous Counts Verification Skin Closure/end of Sequence procedure Count Results Correct, surgeon notified Counts Performed By Count Performed By JACKSON PATTERSON ST (Scrub) Count Performed By Lida Mitchell RN (RN) Last Modified By: Lida Mitchell RN 04/25/19 17:43:58 [facility] IntraOp Counts Final Audit 04/25/19 17:43:58 Processing Clerk: [id number] Modifier: [id number] Entry 1 was deleted. Higher numbered entries shifted one position to fill the gap. <-> 1 Procedure Lumbar Laminectomy <-> 1 Count Type Sponge, Sharps, Miscellaneous <-> 1 Count Results Correct, surgeon notified <-> 1 Count Performed By (Scrub) JACKSON PATTERSON ST <-> 1 Count Performed By (RN) Lida Mitchell RN <-> 1 Counts Verification Sequence 04/25/19 17:43:46 Processing Clerk: [id number] Modifier: [id number] <+> 2 Procedure <+> 2 Count Type <+> 2 Count Results <+> 2 Count Performed By (Scrub) <+> 2 Count Performed By (RN) <+> [address] [facility] IntraOp Cultures and Spec Summary Entry 1 Cultrures and Specimens Specimen Ordered: Yes Test(s) Frozen Requested/Final Section(s)/Path-Lab Disposition Last Modified By: Lida Mitchell RN 04/25/19 17:43:50 General Comments: A. NEOPLASM OF SPINE B. SONAPET CONTENTS C. CAUDA EQUINA TUMOR [facility] IntraOp Cultures and Spec Summary Audit 04/25/19 17:43:50 Processing Clerk: [id number] Modifier: [id number] <*> Specimen Ordered: [facility] IntraOp Departure from OR Entry 1 Integumentary Assessment Integumentary WDL Assessment WDL Transfer/Handoff Transfer to PACU Phase I Handoff Method Phone call Post-op Transport Stretcher/Gurtessa Via Patient Transport AISHA MONAHAN, Accompanied by ASHER JENKINS, Vu Moore, MARY Last Modified By: Lida Mitchell RN 04/25/19 12:26:34 [facility] IntraOp Dressing and Packing Entry 1 Type Dressing Location OPSITE Wound Dressing Item Occlusive dressing Applied By ALICE MAR PA-INT Last Modified By: Lida Mitchell RN 04/25/19 12:27:03 [facility] IntraOp Fire Risk Assessment Entry 1 Fire [...] Modified By: Lida Mitchell RN 04/25/19 12:27:34 [facility] IntraOp General Case Cancer Registry Coordinator 1 Case Information OR OR 09 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 IntraOp Implant Log Entry 1 Type Implant (Synthetic) Implant Log Implant Type Mesh Implant GRAFT MATRIX DURA Identification [id number] Description Implant Quantity 1 Implant Site OPSITE Implant [id number] Identification Lot Number Implant [employer] Surgical Identification Navigation Chain Saw Operator Name: Implant [id number] Identification Catalog Number Implant Has an Yes Expiration Date Implant Expiration 05/30/21 Date Tissue Implant Last Modified By: Lida Mitchell RN 04/25/19 16:47:01 [facility] IntraOp Intraoperative Assessment Entry 1 Handoff Reported [...] Modified By: Lida Mitchell RN 04/25/19 12:34:19 [facility] IntraOp Intraoperative Assessment Audit 04/25/19 12:34:19 Processing Clerk: [id number] Modifier: [id number] <*> Present Upon Arrival to OR IVs [facility] IntraOp Intraoperative Equipment Entry 1 Type Equipment Equipment Equipment Ambreen Suction System Setting 200MMHG Intraop Monitoring Electrocardiogram Five lead placement (ECG) Electrode Placement Blood Pressure Arterial Pressure Line Source Pulse Oximeter Hand, left Probe Site Antiembolic Devices Antiembolic Devices Sequential compression device, knee high Antiembolic Device Bilateral Location Scopes Photo/Video Documentation Photo No Video No Last Modified By: Lida Mitchell RN 04/25/19 12:39:08 [facility] IntraOp Medication Admin Entry 1 Entry 2 Entry 3 Medication/Irrigant neomycin/bacitracin/poly thrombin 5,000 unit pwd FLSEAL VHSD FULL mixin 15 gm oint STRLPREP [id number] --[id number] Combo Med List Time Administered Route of [...] Medication/Irrigant SEALANT DURASL SPINE FLSEAL SD FULL [id number] STRLPREP [id number] Combo Med List Time Administered Route of TOPICAL TOPICAL Administration Dose Dose 5 10 Unit of Measure ml ml Volume Administered By MELIZA DOWNS MD-SNU OWEN, ROBERT D, MD-SNU Procedure Irrigation Irrigant Volume In Irrigant Volume Out Last Modified By: Lida Mitchell RN Burdine, Teresa A, RN 04/25/19 13:47:01 04/25/19 16:58:55 [facility] IntraOp Medication Admin Audit 04/25/19 16:58:55 Processing Clerk: [id number] Modifier: [id number] <+> 5 Medication/Irrigant <+> 5 Route of Administration <+> 5 Administered By <+> 5 Dose <+> 5 Unit of Measure 04/25/19 13:47:01 Processing Clerk: [id number] Modifier: [id number] <+> 4 Medication/Irrigant <+> 4 Route of Administration <+> 4 Administered By <+> 4 Dose <+> 4 Unit of Measure 04/25/19 13:01:17 Processing Clerk: [id number] Modifier: [id number] <+> 3 Medication/Irrigant <+> 3 Route of Administration <+> 3 Administered By <+> 3 Dose <+> [address] [facility] IntraOp Patient Positioning Entry 1 Procedure Lumbar [...] Modified By: Lida Mitchell RN 04/25/19 12:43:00 [facility] IntraOp Sign In Entry 1 Patient, Site, [...] Modified By: Lida Mitchell RN 04/25/19 12:43:17 [facility] IntraOp Sign Out Entry 1 RN Confirmation [...] Modified By: Lida Mitchell RN 04/25/19 17:44:08 [facility] IntraOp Sign Out Audit 04/25/19 17:44:08 Processing Clerk: [id number] Modifier: [id number] <+> 1 RN Sign Out Signature Date/Time [facility] IntraOp Skin Prep Entry 1 Procedure Lumbar Laminectomy Prescribed Yes Pre-Surgical Prep Completed Prep Area OPSITE Intraop Prep Integumentary WDL Assessment WDL Prep Agents Chloraprep Prep by Lida Mitchell RN Hair Removal Methods No hair removal performed Last Modified By: Lida Mitchell RN 04/25/19 12:44:40 [facility] IntraOp Surgical Procedures Entry 1 Procedure Lumbar Laminectomy Additional (LUMBAR LAMINECTOMY Procedure WITH RESECTION Description /DEBULKING OF INTRA DURAL CAUDE EQUINA TUMOR) Primary Procedure Yes Primary Surgeon MELIZA DOWNS MD-SNU Start 04/25/19 12:05:00 Stop 04/25/19 17:29:00 Anesthesia Type General Specialty SN Neurosurgery Wound Class I - Clean Last Modified By: Lida Mitchell RN 04/25/19 17:44:10 [facility] IntraOp Surgical Procedures Audit 04/25/19 17:44:10 Processing Clerk: [id number] Modifier: [id number] <+> [address] [facility] IntraOp Temp Regulation Devices Entry 1 Temp Regulation Temperature Forced Air Warming Regulation Device device, Warm blankets Temperature Upper body Regulation Site Temperature Device 43 Setting Temperature Oscar, Vu, TRANSMITTER CHIEF Regulation Device Applied by Temperature PATIENT'S TEMPERATURE Regulation Comment MONITORED BY ANESTHESIA Last Modified By: Lida Mitchell RN 04/25/19 12:45:34 [facility] IntraOP Time Out Entry 1 Procedure to [...] Progress Within the Last 60 Minutes Beta Mihcael Yes Administered Venous Yes Thromboembolism Prophylaxis Required Anticipated Critical Events Surgeon None expected, Critical or unexpected steps Anesthesia Provider Patient specific concerns, None expected Nursing Assures Sterility of instruments, Equipment concerns or issues Essential Imaging Yes Labeled and Displayed Last Modified By: Lida Mitchell RN 04/25/19 12:05:42 [facility] IntraOp X-Ray and Images Entry 1 X-Ray/Imaging Type Fluoroscopy Fluoroscopy Type C-Arm Site OPSITE Can Labeler Name Ev Toro RN-Educator I Protective Devices [...]
--- OUTSIDE RECORDS SUMMARY | 2024-12-03 12:47 | XMS_ITS | Encounter Summary ---
Author Organization [employer] ([place], [place], [place], [place]) Address [address] [place] [address] Care Team Providers Care Manufacturing Worker Name Role Phone Unavailable Primary Care Provider Unavailabl e Encounter Details Date Type Department Care Team (Late st Contact Info) Description 04/28/2019 Transcribed Document [facility] Radiology 1 [place] [address] Provider, Luciano Bronson MD Social [...] [facility] Aiyana ProviderMD - 04/28/2019 4:19 PM EST UM Authorization Entered On: 04/28/2019 15:20 EST Performed On: 04/28/2019 15:19 EST by Gali Newman Rn-Utilization Review Primary Insurance Authorization Authorization and Policy Numbers : Insurance 1 Health Plan: [employer] MED[employer] REPL Policy Number: [id number] Authorization Number: [id number] Insurance Primary Name : Mariela [id number] Authorization Status-Primary : Awaiting callback Authorization Number-Primary : [id number] Authorized Service Begin Date-Primary : 04/25/2019 EST Authorization Comments-Primary : clinical faxed per [facility] for 04/27 and 04/28 Historical Authorization Comments-Primary : Comment 1: call back from [employer] with kadeemdony requesting clinical be faxed to [phone]. clinical faxed per [facility] (Trent, Gali L, Rn-Utilization Review 04/28/2019 15:17) Comment 2: lvm with brigette rn with [employer] for c/s . acb (Gali Newman, Rn-Utilization Review 04/28/2019 13:51) Comment 3: clinicals faxed via [facility] for cont stay (only 1 day approved) (BULMARO DUONG, RN-Utilization Review 04/26/2019 13:11) Comment 4: per [employer] inpt approved 1 day auth# [id number] (FRANCY MILIAN, Job Printer Apprentice 04/24/2019 13:26) Gali Newman Rn-Utilization Review - 04/28/2019 15:19 EST documented in this encounter Plan of Treatment Not on file documented as of this encounter Visit Diagnoses Not on filedocumented in this encounter
--- OUTSIDE RECORDS SUMMARY | 2024-12-03 12:47 | XMS_ITS | Encounter Summary ---
Author Organization [employer] ([place], [place], [place], [place]) Address [address] [place] [address] Care Team Providers Care Mechanical Manufacturing Engineer Name Role Phone Unavailable Primary Care Provider Unavailabl e Encounter Details Date Type Department Care Team (Late st Contact Info) Description 05/02/2019 Transcribed Document [facility] Radiology [address] [place] [address] ProviderLuciano MD Social History Tobacco Use Types Packs/Day Years Used Date Smoking Tobacco: Never Assessed Comments Unknown Sex and Gender Information Value Date Recorded Sex Assigned at Not on file Legal Sex Female 6:01 PM CDT Gender Identity Not on file Sexual Orientation Not on file documented as of this encounter Miscellaneous Notes * Cerner Conversion Note - [facility] Aiyana ProviderMD - 05/02/2019 1:41 PM EST Stroke/Warfarin Instructions Entered On: 05/02/2019 12:41 EST Performed On: 05/02/2019 12:41 EST by Ericka Wharton RN Stroke/Warfarin Instructions Stroke/TIA Discharge Ins : N/A Warfarin Discharge Ins : N/A Erikca Wharton RN - 05/02/2019 12:41 EST Electronically signed by Carito [facility] Conversion Mass Spec Cerner at 08/23/2022 11:19 AM CDT documented in this encounter Plan of Treatment Not on file documented as of this encounter Visit Diagnoses Not on filedocumented in this encounter
--- OUTSIDE RECORDS SUMMARY | 2024-12-03 12:47 | XMS_ITS | Encounter Summary ---
Author Organization [employer] ([place], [place], [place], [place]) Address [address] [place] [address] Care Team Providers Care Licensed Marine Engineer Name Role Phone Unavailable Primary Care Provider Unavailabl e Encounter Details Date Type Department Care Team (Late st Contact Info) Description 04/25/2019 Transcribed Document [facility] Radiology [address] [place] [address] ProviderLuciano MD Social History Tobacco [...] 8:44 EST Electronically signed by Carito [facility] Conversion Fitting Room Inspector Cerner at 08/23/2022 11:19 AM CDT documented in this encounter Plan of Treatment Not on file documented as of this encounter Visit Diagnoses Not on filedocumented in this encounter
--- OUTSIDE RECORDS SUMMARY | 2024-12-03 12:47 | XMS_ITS | Encounter Summary ---
Author Organization [employer] ([place], [place], [place], [place]) Address [address] [place] [address] Care Team Providers Care Youth Development Professional Name Role Phone Unavailable Primary Care Provider Unavailabl e Encounter Details Date Type Department Care Team (Late st Contact Info) Description 04/25/2019 Transcribed Document [facility] Radiology [address] [place] [address] Provider, Luciano Bronson MD Social [...] * Cerner Conversion Note - [facility] Aiyana ProviderMD - 04/25/2019 10:03 AM EST [...] Anesthesiologist Procedure Case Attendee Role 2 : echocardiologist Case Attendee 2 : RICARDO Rojas RN Procedure Case Attendee Role 3 : echocardiologist Case Attendee 3 : JACKIE PERALTA RN [...]
--- OUTSIDE RECORDS SUMMARY | 2024-12-03 12:47 | XMS_ITS | Encounter Summary ---
Author Organization [employer] ([place], [place], [place], [place]) Address [address] [place] [address] Care Team Providers Care Batch Mixer Operator Name Role Phone Unavailable Primary Care Provider Unavailabl e Encounter Details Date Type Department Care Team (Late st Contact Info) Description 04/25/2019 Transcribed Document [facility] Radiology [address] [place] [address] ProviderLuciano MD Social History Tobacco [...] [facility] Aiyana ProviderMD - 04/25/2019 10:00 PM EST [...]
--- OUTSIDE RECORDS SUMMARY | 2024-12-03 12:47 | XMS_ITS | Clinical Summary ---
Author Organization [employer] [facility] ([place], [place], [place], [place]) Address [address] [place] [address] Care Team Providers Care Hostess Host Name Role Phone Unavailable Primary Care Provider [...]
--- OUTSIDE RECORDS SUMMARY | 2024-12-03 12:47 | XMS_ITS | Encounter Summary ---
Author Organization [employer] ([place], [place], [place], [place]) Address [address] [place] [address] Care Team Providers Care Beef Skinner Name Role Phone Unavailable Primary Care Provider Unavailabl e Encounter Details Date Type Department Care Team (Late st Contact Info) Description 05/02/2019 Transcribed Document [facility] Radiology [address] [place] [address] Provider, Luciano Bronson MD Social [...] Note - [facility] Aiyana ProviderMD - 05/02/2019 9:47 AM EST UM Authorization Entered On: 05/02/2019 8:49 EST Performed On: 05/02/2019 8:47 EST by Gali Newman Rn-Utilization Review Primary Insurance Authorization Authorization and Policy Numbers : Insurance 1 Health Plan: AETNA MEDICARE REPL Policy Number: [id number] Authorization Number: [id number] Insurance Primary Name : Tanya [id number] Authorization Status-Primary : Admit approved Authorization Number-Primary : [id number] Number of Days Authorized-Primary : 8 Day(s) Authorized Service Begin Date-Primary : 04/25/2019 EST Authorized Service End Date-Primary : 05/03/2019 EST Authorization Comments-Primary : c/s auth approved per brigette for 05/01 to 05/02. minh 05/03 Historical Authorization Comments-Primary : Comment 1: Authorized per fax 04/29/2019 @ 1530. Approved x5 days (6 total: 04/25-04/30). Next review due on 05/01/2019. Tameka Davidson, RN. (Dayna Rios, Adult Basic Education Teacher 04/30/2019 07:06) Comment 2: clinical faxed per cerner for 04/27 and 04/28 (Gali Newman, Rn-Utilization Review 04/28/2019 15:19) Comment 3: call back from tameka lui with [employer] requesting clinical be faxed to [phone]. clinical faxed per cerner (Gali Newman, Rn-Utilization Review 04/28/2019 15:17) Comment 4: lvm with brigette lui with tanya for c/s . acb (Gali Newman, Rn-Utilization Review 04/28/2019 13:51) Comment 5: clinicals faxed via [employer]ner for cont stay (only 1 day approved) (BULMARO DUONG, RN-Utilization Review 04/26/2019 13:11) Comment 6: per STAR inpt approved 1 day auth# [id number] (FRANCY MILIAN, Strapper And Buffer 04/24/2019 13:26) Gali Newman, Deya-Utilization Review - 05/02/2019 8:47 EST documented in this encounter Plan of Treatment Not on file documented as of this encounter Visit Diagnoses Not on filedocumented in this encounter
--- OUTSIDE RECORDS SUMMARY | 2024-12-03 12:47 | XMS_ITS | Encounter Summary ---
Author Organization [employer] ([place], [place], [place], [place]) Address [address] [place] [address] Care Team Providers Care Classified Ad Taker Name Role Phone Unavailable Primary Care Provider Unavailabl e Encounter Details Date Type Department Care Team (Late st Contact Info) Description 04/25/2019 Transcribed Document [facility] Radiology [address] [place] [address] Provider, yvon Bronson MD Social [...] - [facility] Aiyana ProviderMD - 04/25/2019 1:05 PM EST [facility] Main OR Preop Summary Primary Physician: MELIZA DOWNS MD- Finalized Date/Time: 04/25/19 13:08:43 Pt. Name: GERTRUDIS DALY /Sex: 1955 Female Med Rec #: [id number] Physician: MELIZA DOWNS MD-[facility] Financial #: [id number] Pt. Type: I Room/Bed: ASA/1 Admit/Disch: 04/25/19 06:38:00 - Institution: [facility] PreOp Case Times Entry 1 In Preop 04/25/19 07:51:00 Ready for Holding n/a Room Patient Ready for 04/25/19 09:28:00 Surgery Patient Out of Preop 04/25/19 11:14:00 Patient Out of n/a Holding Room Last Modified By: CHRISTELLE MCCORD RN 04/25/19 13:08:36 [facility] PreOp Case Times Audit 04/25/19 13:08:36 Certified Pharmacy Technician: EMILIE Modifier: [email or web address] <+> 1 Patient Out of Preop 04/25/19 09:28:42 Certified Pharmacy Technician: EMILIE Modifier: [email or web address] <+> 1 Patient Ready for Surgery Finalized By: CHRISTELLE MCCORD V., RN Document Signatures Signed By: CHRISTELLE MCCORD RN 04/25/19 13:08 Electronically signed by Carito [facility] Conversion Launderer Hand Cerner at 08/23/2022 11:18 AM CDT documented in this encounter Plan of Treatment Not on file documented as of this encounter Visit Diagnoses Not on filedocumented in this encounter
--- OUTSIDE RECORDS SUMMARY | 2024-12-03 12:47 | XMS_ITS | Encounter Summary ---
Author Organization [employer] ([place], [place], [place], [place]) Address [address] [place] [address] Care Team Providers Care Quality Officer Name Role Phone Unavailable Primary Care Provider Unavailabl e Encounter Details Date Type Department Care Team (Late st Contact Info) Description 04/23/2019 Transcribed Document [facility] Radiology [address] [place] [address] Provider, [facility] Aiyana Social History Tobacco Use [...] - [facility] Aiyana ProviderMD - 04/23/2019 7:04 PM EST [facility] [address] [address] GERTRUDIS DALY :1955 Visit Time:04/23/2019 [...] follow up appointment for results. Where: [address] [place] [address]- Medications What How Much When Instructions Next [...] activities are safe for you. ??? Take hour-wko-yhsbtig and prescription medicines only as told by [...] 06/25/2001 Document Revised: 11/02/2017 Document Reviewed: 11/02/2017 [employer] Interactive Patient Education ?? 2019 [employer] Magnetic Resonance Imaging Magnetic resonance imaging [...] including vitamins, herbs, eye drops, creams, and pgow-ouk-wupvalz medicines. What are the risks? Generally, MRI [...] 03/16/2001 Document Revised: 08/21/2016 Document Reviewed: 05/14/2014 [employer] Interactive Patient Education ?? 2017 [employer] Emergency Awareness and Preventative Care STROKE [...] Assistance with quitting is available by contacting 7-733-HJZXNOW. This is a free resource providing counseling, [...] was given the opportunity to ask questions. Patient/Patient Services Assistant Name: Patient/Patient Services Assistant Signature: Relationship to Patient: Clinician/Hospital Patient Services Assistant Signature: Date: Electronically signed by Carito, [facility] Conversion Salon Sales Consultant Curtis at 08/23/2022 11:19 AM CDT documented in this encounter Plan of Treatment Not on file documented as of this encounter Visit Diagnoses Not on filedocumented in this encounter
--- OUTSIDE RECORDS SUMMARY | 2024-12-03 12:47 | XMS_ITS | Encounter Summary ---
Author Organization [employer] ([place], [place], [place], [place]) Address [address] [place] [address] Care Team Providers Care Experimental Display Builder Name Role Phone Unavailable Primary Care Provider Unavailabl e Encounter Details Date Type Department Care Team (Late st Contact Info) Description 04/29/2019 Transcribed Document [facility] Radiology [address] [place] [address] Provider, Luciano Bronson MD Social [...] - [facility] Aiyana ProviderMD - 04/29/2019 10:39 [...] Physician - ALVERTO DIMAS MD-INT - medical director of vendor management Physician - MACK FAYE MD Referring [...] 100 mg= 2 Cap, Oral, TID Metamucil [place] Smooth Texture Sugar Free, 1 Packet, Oral, [...] 04/28/2019 11:42 EST Electronically signed by Carito, [facility] Conversion International Project Engineer Cerner at 08/23/2022 11:19 AM CDT documented in this encounter Plan of Treatment Not on file documented as of this encounter Visit Diagnoses Not on filedocumented in this encounter
--- OUTSIDE RECORDS SUMMARY | 2024-12-03 12:47 | XMS_ITS | Encounter Summary ---
Author Organization [employer] ([place], [place], [place], [place]) Address [address] [place] [address] Care Team Providers Care Abstract Searcher Name Role Phone Unavailable Primary Care Provider Unavailabl e Encounter Details Date Type Department Care Team (Late st Contact Info) Description 04/26/2019 Transcribed Document [facility] Radiology [address] [place] [address] Provider, Luciano Bronson MD Social History Tobacco Use Types Packs/Day Years Used Date Smoking Tobacco: Never Assessed Comments Unknown Sex and Gender Information Value Date Recorded Sex Assigned at Not on file Legal Sex Female 6:01 PM CDT Gender Identity Not on file Sexual Orientation Not on file documented as of this encounter Miscellaneous Notes * Cerner Conversion Note - [facility] Aiyana Provider, - 04/26/2019 2:31 PM EST [...] YOANNA GUERRERO, PT - 04/28/2019 14:54 EST Custodial Goals Mobility/Bed Mobility LTG PT Grid Goal [...] Training Each 15 Min : 1 YOANNA GUERRREO PT - 04/28/2019 14:54 EST documented in this encounter Plan of Treatment Not on file documented as of this encounter Visit Diagnoses Not on filedocumented in this encounter
--- OUTSIDE RECORDS SUMMARY | 2024-12-03 12:47 | XMS_ITS | Encounter Summary ---
Author Organization [employer] ([place], [place], [place], [place]) Address [address] [place] [address] Care Team Providers Care Storm Door Maker Name Role Phone Unavailable Primary Care Provider Unavailabl e Encounter Details Date Type Department Care Team (Late st Contact Info) Description 04/28/[address] [facility] Radiology [address] [place] [address] Provider, Luciano Bronson MD Social [...] [facility] A[facility] ProviderMD - 04/28/2019 2:50 PM EST UM Authorization Entered On: 04/28/2019 13:50 EST Performed On: 04/28/2019 13:50 EST by Gali Newman Rn-Utilization Review Primary Insurance Authorization Authorization and Policy Numbers : Insurance 1 Health Plan: AETNA MEDICARE REPL Policy Number: [id number] Authorization Number: [id number] Insurance Primary Name : Mraiela [id number] Authorization Status-Primary : Awaiting callback Authorization Number-Primary : [id number] Authorized Service Begin Date-Primary : 04/25/2019 EST Historical Authorization Comments-Primary : Comment 1: clinicals faxed via [employer] for cont stay (only 1 day approved) (BULMARO DUONG, RN-Utilization Review 04/26/2019 13:11) Comment 2: per STAR inpt approved 1 day auth# [id number] (FRANCY MILIAN, Wearing Apparel Assembler 04/24/2019 13:26) Gali Newman Rn-Utilization Review - 04/28/2019 13:50 EST Electronically signed by Carito, [facility] Conversion Entertainment Centre Manager Cerner at 08/23/2022 11:19 AM CDT documented in this encounter Plan of Treatment Not on file documented as of this encounter Visit Diagnoses Not on filedocumented in this encounter
--- OUTSIDE RECORDS SUMMARY | 2024-12-03 12:47 | XMS_ITS | Encounter Summary ---
Author Organization [employer] ([place], [place], [place], [place]) Address [address] [place] [address] Care Team Providers Care Oral Therapist Name Role Phone Unavailable Primary Care Provider Unavailabl e Encounter Details Date Type Department Care Team (Late st Contact Info) Description 04/28/2019 Transcribed Document [facility] Radiology [address] [place] [address] Provider, Luciano Bronson MD Social [...] Note - [facility] Aiyana ProviderMD - 04/28/2019 10:32 AM EST UM Authorization Entered On: 04/28/2019 9:32 EST Performed On: 04/28/2019 9:32 EST by Gali Newman Rn-Utilization Review Primary Insurance Authorization Authorization and Policy Numbers : Insurance 1 Health Plan: A[employer]NA MEDICARE REPL Policy Number: [id number] Authorization Number: [id number] Insurance Primary Name : Mariela [id number] Authorization Status-Primary : Awaiting callback Authorization Number-Primary : [id number] Authorized Service Begin Date-Primary : 04/25/2019 EST Historical Authorization Comments-Primary : Comment 1: clinicals faxed via [employer] for cont stay (only 1 day approved) (BULMARO DUONG, RN-Utilization Review 04/26/2019 13:11) Comment 2: per STAR inpt approved 1 day auth# [id number] (FRANCY MILIAN, Centerless Grinding Machine Adjuster 04/24/2019 13:26) Gali Newman Rn-Utilization Review - 04/28/2019 9:32 EST Electronically signed by Carito, [facility] Conversion Teradata Architect Cerner at 08/23/2022 11:19 AM CDT documented in this encounter Plan of Treatment Not on file documented as of this encounter Visit Diagnoses Not on filedocumented in this encounter
--- OUTSIDE RECORDS SUMMARY | 2024-12-03 12:47 | XMS_ITS | Encounter Summary ---
Author Organization [employer] ([place], [place], [place], [place]) Address [address] [place] [address] Care Team Providers Care Decal Maker Name Role Phone Unavailable Primary Care Provider Unavailabl e Encounter Details Date Type Department Care Team (Late st Contact Info) Description 04/23/2019 Transcribed Document [facility] Radiology [address] [place] [address] Provider, Luciano Bronson MD Social [...] [facility] Aiyana ProviderMD - 04/23/2019 12:37 PM EST Pre Procedure Adult Entered On: 04/23/2019 11:40 EST Performed On: 04/23/2019 11:37 EST by CHRISTOPHER MONTIEL RN Height and Weight, Clinical Dosing Height Source : Stated Height Entry Format : [place] Height, Feet : 5 ft(Converted to: 152 cm, 60 Inch) Height, Inches : 2 Inch(Converted to: 0 ft 2 Inch, 5.08 cm) Clinical Height : 157.48 cm Weight Source : Standing scale Weight Entry Format : [place] Clinical Dosing Weight : 81.82 kg Weight, Pounds : 180 lb Body Surface Area (BSA) : 1.83 m2 Body Mass Index : 33 kg/m2 ([place]) [place] Body Weight : 50 kg CHRISTOPHER MONTIEL [...] CHRISTOPHER MONTIEL RN - 04/23/2019 11:37 EST [place] Suicide Severity Rating Scale (C-SSRS) CSSRS Past [...] [place]arro-Friend Support Person/Pt Rep Contact Information : [phone] Want Family/Rep/Phys Notified of Admit : No Emergency Contact #1 : . Emergency Contact #1 Phone Number : . Emergency Contact #1 Relationship : . Emergency Contact #2 : . Emergency Contact #2 Phone Number : . Emergency Contact #2 Relationship : . Primary Language : Japanese Preferred Communication Mode [...] Scale Risk Level : 0-24 Low Risk [place] Fall Interventions : Adequate lighting, Assistive devices [...]
--- OUTSIDE RECORDS SUMMARY | 2024-12-03 12:47 | XMS_ITS | Encounter Summary ---
Author Organization [employer] ([place], [place], [place], [place]) Address [address] [place] [address] Care Team Providers Care E Commerce Solution Architect Name Role Phone Unavailable Primary Care Provider Unavailabl e Encounter Details Date Type Department Care Team (Late st Contact Info) Description 04/23/2019 Transcribed Document [facility] Radiology [address] [place] [address] ProviderLuciano MD Social History Tobacco [...] activities are safe for you. ??? Take xrrx-bmb-yjxcztm and prescription medicines only as told by [...] 06/25/2001 Document Revised: 11/02/2017 Document Reviewed: 11/02/2017 [employer] Interactive Patient Education ? 2019 [employer]. Magnetic Resonance Imaging Magnetic resonance imaging (MRI) [...] including vitamins, herbs, eye drops, creams, and nvsz-ryh-qwwgcnc medicines. What are the risks? Generally, MRI [...] 05/14/2014 [employer] Interactive Patient Education ? 2017 [employer] documented in this encounter Plan of Treatment Not on file documented as of this encounter Visit Diagnoses Not on filedocumented in this encounter
--- OUTSIDE RECORDS SUMMARY | 2024-12-03 12:47 | XMS_ITS | Encounter Summary ---
Author Organization [employer] ([place], [place], [place], [place]) Address [address] [place] [address] Care Team Providers Care Flatbed Driver Name Role Phone Unavailable Primary Care Provider Unavailabl e Encounter Details Date Type Department Care Team (Late st Contact Info) Description 05/02/2019 Transcribed Document [facility] [address] [place] [address] Provider, [facility] MD Aiyana Social History Tobacco Use Types Packs/Day Years Used Date Smoking Tobacco: Never Assessed Comments Unknown Sex and Gender Information Value Date Recorded Sex Assigned at Not on file Legal Sex Female 6:01 PM CDT Gender Identity Not on file Sexual Orientation Not on file documented as of this encounter Miscellaneous Notes * Cerner Conversion Note - [facility] Aiyana ProviderMD - 05/02/2019 4:44 PM EST [facility] [address] [place] [id number] GERTRUDIS DALY :1955 Visit Time:04/25/2019 Your Visit [...] Services: [facility]-- Medical Equipment for Home Use: [employer]--[phone] Diet after Discharge: Resume usual diet as [...] EST Where: [facility] [address] [place] [address]- Follow Up with MELIZA DOWNS When 05/22/2019 11:00 AM EST Comments See appointment card Where: [address] (SUNDAY ONLY) [place] [address]- Business (1) Follow Up with MELIZA DOWNS When 05/08/2019 01:00 PM EST Comments See appointment card Where: [address] (SUNDAY ONLY) [place] [address]- Business (1) Follow Up with [...] at home: Medicines ??? Take or apply bojy-tmb-thltjfp and prescription medicines only as told by [...] cannot use soap and water, use hand eyewear manufacturing tech. ? Change your bandage as told by [...] 12/26/2008 Document Revised: 08/24/2016 Document Reviewed: 09/06/2015 [employer] Interactive Patient Education ?? 2019 [employer] Laminectomy, Care After This sheet gives [...] and water are not available, use hand eyewear manufacturing tech. ? Change your dressing as told by [...] or a bad smell. Medicines ??? Take qwmx-yuc-wxcxicf and prescription medicines only as told by [...] urine clear or pale yellow. ? Take axdj-uqv-wykdhvl or prescription medicines. ? Eat foods that [...] 10/06/2005 Document Revised: 11/02/2016 Document Reviewed: 09/03/2016 [employer] Interactive Patient Education ?? 2019 [employer]. cyclobenzaprine (demetria young) Amrix, Comfort Pac with [...] may report side effects to FDA at 9-032-RFZ-6414. What other drugs will affect cyclobenzaprine? Using [...] drugs may affect cyclobenzaprine, including prescription and ouhn-izt-vndiddz medicines, vitamins, and herbal products. Not all [...] to ensure that the information provided by [employer]. ('[employer]') is accurate, up-to-date, and complete, but no guarantee is made to that effect. Drug information contained herein may be time sensitive. [employer] information has been compiled for use by healthcare practitioners and consumers in the [place] and therefore [employer] does not warrant that uses outside of the [place] are appropriate, unless specifically indicated otherwise. [employer] drug information does not endorse drugs, diagnose patients or recommend therapy. [employer] drug information is an informational resource [...] effective or appropriate for any given patient. [employer] does not assume any responsibility for any aspect of healthcare administered with the aid of information [employer] provides. The information contained herein is not intended to cover all possible uses, directions, precautions, warnings, drug interactions, allergic reactions, or adverse effects. If you have questions about the drugs you are taking, check with your doctor, nurse or pharmacist. Copyright 3360-6691 [employer]. Version: 5.01. Revision Date: 12/26/2017. pregabalin (pre [...] may report side effects to FDA at 1-343-OZB-4357. What other drugs will affect pregabalin? Using [...] drugs may affect pregabalin, including prescription and osvm-kbk-ygyyztj medicines, vitamins, and herbal products. Not all [...] to ensure that the information provided by [employer]. ('[employer]') is accurate, up-to-date, and complete, but no guarantee is made to that effect. Drug information contained herein may be time sensitive. [employer] information has been compiled for use by healthcare practitioners and consumers in the [place] and therefore [employer] does not warrant that uses outside of the [place] are appropriate, unless specifically indicated otherwise. [employer] drug information does not endorse drugs, diagnose patients or recommend therapy. [employer] drug information is an informational resource [...] effective or appropriate for any given patient. [employer] does not assume any responsibility for any aspect of healthcare administered with the aid of information [employer] provides. The information contained herein is not intended to cover all possible uses, directions, precautions, warnings, drug interactions, allergic reactions, or adverse effects. If you have questions about the drugs you are taking, check with your doctor, nurse or pharmacist. Copyright 2708-9432 [employer]. Version: 8.01. Revision Date: 09/11/2017. acetaminophen and [...] may report side effects to FDA at 6-233-ZOO-1579. What other drugs will affect acetaminophen and [...] affect acetaminophen and oxycodone, including prescription and ilse-ywp-rvravyi medicines, vitamins, and herbal products. Not all [...] to ensure that the information provided by [employer]. ('[employer]') is accurate, up-to-date, and complete, but no guarantee is made to that effect. Drug information contained herein may be time sensitive. [employer] information has been compiled for use by healthcare practitioners and consumers in the [place] and therefore [employer] does not warrant that uses outside of the [place] are appropriate, unless specifically indicated otherwise. [employer] drug information does not endorse drugs, diagnose patients or recommend therapy. [employer] drug information is an informational resource [...] effective or appropriate for any given patient. [employer] does not assume any responsibility for any aspect of healthcare administered with the aid of information [employer] provides. The information contained herein is not intended to cover all possible uses, directions, precautions, warnings, drug interactions, allergic reactions, or adverse effects. If you have questions about the drugs you are taking, check with your doctor, nurse or pharmacist. Copyright 1917-8076 [employer]. Version: 18.02. Revision Date: 02/27/2018. Emergency Awareness [...] Assistance with quitting is available by contacting 9-590-HWCC-NOW. This is a free resource providing counseling, support, and referral. Or you may contact your personal physician. LYYN Suicide Prevention Lifeline: The National Suicide Prevention [...] range between ( 11.7 and 14.9 ) Snyder Percent Man: 8 % -- Normal range [...] range between ( 0.0 and 7.0 ) Snyder #: 0.62 K/uL -- Normal range between ( 0.16 and 1.00 ) Eos #: 0.28 x10(3)/uL -- Normal range between ( 0.00 and 0.80 ) Snyder %: 7.5 % -- Normal range between [...] ) Urine Bilirubin Dipstick: Negative Urine Specific [place]: >1.030 -- Normal range between ( 1.005 and 1.030 ) Urine Type.: U Cath 04/15/2019 8:26 AM Urine Type: U QThru Blood Bank 04/25/2019 8:37 AM ABO/Rh Repeat: [...] was given the opportunity to ask questions. Patient/Spinner Concrete Pipe Name: Patient/Spinner Concrete Pipe Signature: Relationship to Patient: Clinician/Hospital Spinner Concrete Pipe Signature: Date: documented in this encounter Plan of Treatment Not on file documented as of this encounter Visit Diagnoses Not on filedocumented in this encounter
--- OUTSIDE RECORDS SUMMARY | 2024-12-03 12:47 | XMS_ITS | Encounter Summary ---
Author Organization [employer] ([place], [place], [place], [place]) Address [address] [place] [address] Care Team Providers Care Drag Seiner Name Role Phone Unavailable Primary Care Provider Unavailabl e Encounter Details Date Type Department Care Team (Late st Contact Info) Description 04/26/2019 Transcribed Document [facility] Radiology [address] [place] [address] ProviderLuciano MD Social History Tobacco [...] [facility] Aiyana ProviderMD - 04/26/2019 6:00 [...]
--- OUTSIDE RECORDS SUMMARY | 2024-12-03 12:47 | XMS_ITS | Encounter Summary ---
Author Organization [employer] ([place], [place], [place], [place]) Address [address] [place] [address] Care Team Providers Care Hoop Expander Name Role Phone Unavailable Primary Care Provider Unavailabl e Encounter Details Date Type Department Care Team (Late st Contact Info) Description 04/26/2019 Transcribed Document [facility] Radiology [address] [place] [address] ProviderLuciano MD Social History Tobacco [...] - [facility] Aiyana ProviderMD - 04/26/2019 8:56 AM EST UM Authorization Entered On: 04/26/2019 7:57 EST Performed On: 04/26/2019 7:56 EST by BULMARO DUONG RN-Utilization Review Primary Insurance Authorization Authorization and Policy Numbers : Insurance 1 Health Plan: [employer] MEDICARE REPL Policy Number: [id number] Authorization Number: [id number] Insurance Primary Name : Mariela [id number] Authorization Status-Primary : Admit approved Authorization Number-Primary : [id number] Authorized Service Begin Date-Primary : 04/25/2019 EST Historical Authorization Comments-Primary : Comment 1: per STAR inpt approved 1 day auth# [id number] (FRANCY MILIAN, Floor Sander 04/24/2019 13:26) BULMARO DUONG RN-Utilization Review - 04/26/2019 7:56 EST documented in this encounter Plan of Treatment Not on file documented as of this encounter Visit Diagnoses Not on filedocumented in this encounter
--- OUTSIDE RECORDS SUMMARY | 2024-12-03 12:47 | XMS_ITS | Encounter Summary ---
Author Organization [employer] ([place], [place], [place], [place]) Address [address] [place] [address] Care Team Providers Care Blood Collector Name Role Phone Unavailable Primary Care Provider Unavailabl e Encounter Details Date Type Department Care Team (Late st Contact Info) Description 04/26/2019 Transcribed Document [facility] Radiology [address] [place] [address] Provider, Luciano Bronson MD Social [...] [facility] Aiyana ProviderMD - 04/26/2019 3:20 PM [...] LUCIEN JAUN, OTR/L - 05/02/2019 15:28 EST [facility] Goals, OT Grooming LTG Grid Goal #1 [...] : pt to EOB supervision with leg straw hat brusher. Sat unsupported. Given AE for LB dressing educated and demonstrated understanding. Pt educated on bathroom transfers, shower transfers, car transfers, toileting hygiene. Given tongs for toileting. Dicussed use of home bidet. Pt supervision to supine with leg straw hat brusher. Assessment : pt has good understanding of [...]
--- OUTSIDE RECORDS SUMMARY | 2024-12-03 12:47 | XMS_ITS | Encounter Summary ---
Author Organization [employer] ([place], [place], [place], [place]) Address [address] [place] [address] Care Team Providers Care Note Taker Name Role Phone Unavailable Primary Care Provider Unavailabl e Encounter Details Date Type Department Care Team (Late st Contact Info) Description 04/27/2019 Transcribed Document [facility] 1 [place] [address] ProviderLuciano MD Social History Tobacco Use Types Packs/Day Years Used Date Smoking Tobacco: Never Assessed Comments Unknown Sex and Gender Information Value Date Recorded Sex Assigned at Not on file Legal Sex Female 6:01 PM CDT Gender Identity Not on file Sexual Orientation Not on file documented as of this encounter Miscellaneous Notes * Cerner Conversion Note - [facility] Aiyana ProviderMD - 04/27/2019 6:00 AM EST [...]
--- OUTSIDE RECORDS SUMMARY | 2024-12-03 12:47 | XMS_ITS | Encounter Summary ---
Author Organization [facility] ([place], [place], [place], [place]) Address [address] [place] [address] Care Team Providers Care Therapeutic Recreation Specialist Name Role Phone Unavailable Primary Care Provider Unavailabl e Encounter Details Date Type Department Care Team (Late st Contact Info) Description 04/28/2019 Transcribed Document [facility] [address] [place] [address] Provider, Luciano Bronson MD Social [...] [facility] Aiyana ProviderMD - 04/28/2019 5:40 PM EST Consult Phone Call Documentation Entered On: 04/29/2019 8:03 EST Performed On: 04/28/2019 16:40 EST by [facility] Coord Phone Call for Consults Consult Phone Call/Page Attempt : First call Consult Reason : neurogenic bladder Physician Requesting Consult : ALICE MAR PA-INT Provider Team Notified Name : Urology Physician Covering for Consult : NOÉ HAILE MD-URO Date and Time Call Returned : 04/29/2019 8:03 EST Consult, Additional Information : Spoke with Dr. Mcdonald urology resident Marce Multani, [facility] Coord - 04/29/2019 8:02 EST Electronically signed by Luciano Arzate Conversion Scrap Metal Processing Worker Cerner at 08/23/2022 11:19 AM CDT documented in this encounter Plan of Treatment Not on file documented as of this encounter Visit Diagnoses Not on filedocumented in this encounter
--- OUTSIDE RECORDS SUMMARY | 2024-12-03 12:47 | XMS_ITS | Encounter Summary ---
[facility] Organization [facility] Address [address] [place] [address] Care Team Providers Care Dietitian Consultant Name Role Phone Danelle Lennon APRN Primary Care Provider + [phone] Reason for Visit * Reason Comments Med Refill Encounter Details Date Type Department Care Team (Late st Contact Info) Description 02/17/2023 Refill [facility] [address] [place] [address] Alex Davis MD [address] [place] [address] Postlaminectomy syndrome of lumbar region; [...] myelopathy documented in this encounter Care Teams Dietitian Consultant Relationship Specialty Start Date End Date Danelle Lennon APRN [address] [place] [address] [place] [address] PCP - General Internal Medicine 06/18/24 documented as of this encounter
--- OUTSIDE RECORDS SUMMARY | 2024-12-03 12:47 | XMS_ITS | Encounter Summary ---
Author Organization [employer] ([place], [place], [place], [place]) Address [address] [place] [address] Care Team Providers Care Patent Prosecution Paralegal Name Role Phone Unavailable Primary Care Provider Unavailabl e Encounter Details Date Type Department Care Team (Late st Contact Info) Description 04/24/2019 Transcribed Document [facility] [address] [place] [address] ProviderLuciano MD Social History Tobacco Use Types Packs/Day Years Used Date Smoking Tobacco: Never Assessed Comments Unknown Sex and Gender Information Value Date Recorded Sex Assigned at Not on file Legal Sex Female 6:01 PM CDT Gender Identity Not on file Sexual Orientation Not on file documented as of this encounter Miscellaneous Notes * Cerner Conversion Note - [facility] Aiyana ProviderMD - 04/24/2019 2:26 PM EST UM Authorization Entered On: 04/24/2019 13:27 EST Performed On: 04/24/2019 13:26 EST by FRANCY MILIAN Buckle Strap Drum Operator Primary Insurance Authorization Authorization and Policy Numbers : Insurance 1 Health Plan: [employer] MEDICARE REPL Policy Number: [id number] Authorization Number: [id number] Insurance Primary Name : Mariela [id number] Authorization Status-Primary : Admit approved Authorization Number-Primary : [id number] Authorized Service Begin Date-Primary : 04/25/2019 EST Authorization Comments-Primary : per STAR inpt approved 1 day auth# [id number] Historical Authorization Comments-Primary : No Authorization Comments Found FRANCY MILIAN, Buckle Strap Drum Operator - 04/24/2019 13:26 EST documented in this encounter Plan of Treatment Not on file documented as of this encounter Visit Diagnoses Not on filedocumented in this encounter
--- OUTSIDE RECORDS SUMMARY | 2024-12-03 12:47 | XMS_ITS | Encounter Summary ---
Author Organization [employer] ([place], [place], [place], [place]) Address [address] [place] [address] Care Team Providers Care Players Assistant Name Role Phone Unavailable Primary Care Provider Unavailabl e Encounter Details Date Type Department Care Team (Late st Contact Info) Description 04/29/2019 Transcribed Document [facility] Radiology [address] [place] [address] Provider, Luciano Bronson MD Social [...] [facility] Aiyana ProviderMD - 04/29/2019 4:24 PM EST On Going Discharge Planning Entered On: 04/29/2019 15:26 EST Performed On: 04/29/2019 15:24 EST by ROMELIA MCADAMS RN-Scuba Diving TeacherThrough Operator Progress Note Discharge Arrangements : Patient Post-Acute [...] Meeting Medical Necessity : Yes ROMELIA MCADAMS RN-Scuba Diving Teacher - 04/29/2019 15:24 EST Narrative Progress Note Narrative Progress Note : Urology consulted for neurogenic bladder. Pt's choices of [facility] and [facility] are not in network with pt's payor source. D/W pt at bedside. She has chose [facility] now. Referral sent via Tc and informed Colleene. Precert intitated for acute. CM will continue to follow. ROMELIA MCADAMS RN-Scuba Diving Teacher - 04/29/2019 15:24 EST Electronically signed by Carito [facility] Conversion Surveyor Instrument Assistant Cerner at 08/23/2022 11:18 AM CDT documented in this encounter Plan of Treatment Not on file documented as of this encounter Visit Diagnoses Not on filedocumented in this encounter
--- OUTSIDE RECORDS SUMMARY | 2024-12-03 12:47 | XMS_ITS | Encounter Summary ---
Author Organization [employer] ([place], [place], [place], [place]) Address [address] [place] [address] Care Team Providers Care Carpet Yarn Winder Operator Name Role Phone Unavailable Primary Care Provider Unavailabl e Encounter Details Date Type Department Care Team (Late st Contact Info) Description 04/28/2019 Transcribed Document [facility] [address] [facility] [address] [place] [address] Meliza Downs Jr., MD [address] [place] [address] [address] [place] [id number] Social History Tobacco Use Types Packs/Day Years [...] for a while. family [place] rehab [place]. i dw case managemenrt. documented in this encounter Plan of Treatment Not on file documented as of this encounter Visit Diagnoses Not on filedocumented in this encounter
--- OUTSIDE RECORDS SUMMARY | 2024-12-03 12:47 | XMS_ITS | Clinical Summary ---
Author Organization [facility] Address [address] [place] [address] Care Team Providers Care Flagger Name Role Phone Ev Augustin VASILE Primary Care Provider [phone] Allergies Active Allergy Reactions Criticality Noted Date [...] Last Done Comments [facility]-Bone Density Scan 1955 [facility]-/Child/Adol SDOH Screenings 1955 [id number] Vaccine (#1) 1961 [facility]- SDOH Screenings 1974 [...] IgM Negative Negative 11/08/2023 4:13 PM EDT [facility] Hepatitis B Core Antibody IgM Negative Negative 11/08/2023 4:13 PM EDT [facility] Blood Venous blood specimen / Unknown Venipuncture / Unknown 11/08/2023 1:57 PM EDT 11/08/2023 2:01 PM EDT us Denis Hudson APRN LAB BLOOD ORDERABLES Final Res ult Performing Organization Address City/State/[facility] Co de Phone Number [facility]ALTH[facility] [address] [place] [address] from Last 3 Months or Most Recently Relevant to Health Maintenance Insurance Care Teams Flagger Relationship Specialty Start Date End Date Ev Augustin APRN [address] [place] [address] PCP - General 08/13/20
--- OUTSIDE RECORDS SUMMARY | 2024-12-03 12:47 | XMS_ITS | Encounter Summary ---
Author Organization [employer] ([place], [place], [place], [place]) Address [address] [place] [address] Care Team Providers Care Aeronautics Teacher Name Role Phone Unavailable Primary Care Provider Unavailabl e Encounter Details Date Type Department Care Team (Late st Contact Info) Description 04/28/2019 Transcribed Document [facility] Radiology [address] [place] [address] Provider, Luciano Bronson MD Social [...] [facility] Aiyana ProviderMD - 04/28/2019 6:13 PM EST Initial Discharge Planning Entered On: 04/28/2019 17:18 EST Performed On: 04/28/2019 17:13 EST by ROEMLIA MCADAMS RN-Circular Clerk Initial Assessment I Previously Documented Living Environment : No qualifying data available. Living Situation : Home Patient Lives With : Spouse Is the Patient a Caregiver at Home? : No Emergency Contact #1 : Michelle Gonzalez Emergency Contact #1 cell Emergency Contact #1 Relationship : Emergency Contact #2 : Kandi Javed Emergency Contact #2 cell Emergency Contact #2 Relationship : daughter ROMELIA MCADAMS RN-Circular Clerk - 04/28/2019 17:13 EST Initial Assessment II Sensory and Motor Deficits : None ROMELIA MCADAMS RN-Circular Clerk - 04/28/2019 17:13 EST Discharge Needs I Anticipated Discharge Date : 04/30/2019 EST Anticipated Discharge To, CM : care home facility Current Home Treatment/Equipment : Current Home Treatment/Equipment No qualifying data available. Documentation Status Complete : Yes ROMELIA MCADAMS RN-Circular Clerk - 04/28/2019 17:13 EST Discharge Needs II Professional Skilled Services : Professional Skilled Services No qualifying data available. Needs Assistance with Transportation : Maybe Discharge Options Discussed with Patient : Short term rehabilitation ROMELIA MCADAMS RN-Circular Clerk - 04/28/2019 17:13 EST Narrative Note Narrative Note : 63yo female pt s/p L3-5 lami with resection of cauda equina tumor. CBR except when working with PT/OT. Met with pt, spouse, and daughter at bedside during rounds to discuss DCP. They request rehab at [place] as pt's sister works there. CM also gave list of SNF in [facility] and [facility] with quality and resource information in case no bed or not in contract/network with pt's payor source. Referral sent to [facility] via Tc and left message with liaison . NSY states pt will not be ready for dc for a couple more days. CM will follow. ROMELIA MCADAMS RN-Circular Clerk - 04/28/2019 17:13 EST Electronically signed by Luciano Arzate Conversion Manager Of Exhibitions And Collections Curtis at 08/23/2022 11:19 AM CDT documented in this encounter Plan of Treatment Not on file documented as of this encounter Visit Diagnoses Not on filedocumented in this encounter
--- OUTSIDE RECORDS SUMMARY | 2024-12-03 12:47 | XMS_ITS | Encounter Summary ---
Author Organization [employer] ([place], [place], [place], [place]) Address [address] [place] [address] Care Team Providers Care Wing Scorer Name Role Phone Unavailable Primary Care Provider Unavailabl e Encounter Details Date Type Department Care Team (Late st Contact Info) Description 04/26/2019 Transcribed Document [facility] Neurology - [facility] [address] [facility] [address] [place] [address] Meliza Downs Jr., MD [address] [place] [address] [address] [place] [address] Social History Tobacco Use Types Packs/Day Years [...]
--- OUTSIDE RECORDS SUMMARY | 2024-12-03 12:47 | XMS_ITS | Encounter Summary ---
Author Organization [employer] ([place], [place], [place], [place]) Address [address] [place] [address] Care Team Providers Care Precision Crop Manager Name Role Phone Unavailable Primary Care Provider Unavailabl e Encounter Details Date Type Department Care Team (Late st Contact Info) Description 04/23/2019 Transcribed Document [facility] Radiology 1 [place] [address] Provider, Luciano Bronson MD Social [...] [facility] Aiyana ProviderMD - 04/23/2019 1:00 PM EST [facility] Summary Primary Physician: MELIZA DOWNS MD-[facility] Finalized Date/Time: 04/23/19 18:34:36 Pt. Name: GERTRUDIS DALY /Sex: 1955 Female Med Rec #: [id number] Physician: MELIZA DOWNS MD-[facility] Financial #: [id number] Pt. Type: O Room/Bed: /24 Admit/Disch: 04/23/19 10:57:00 - 04/23/19 18:25:00 Institution: [facility] PACU I Case Times Entry 1 In PACU I 04/23/19 16:50:00 Ready for PACU 04/23/19 18:00:00 Discharge Discharge from PACU 04/23/19 18:03:00 I Last Modified By: Ev Parada RN 04/23/19 18:34:11 [facility] PACU I Case Times Audit 04/23/19 18:34:11 Pipe Or Steam Fitter Furnace Installer: [id number] Modifier: [id number] <+> 1 Ready for PACU Discharge <+> 1 Discharge from PACU I Finalized By: Ev Parada RN Document Signatures Signed By: Ev Parada RN 04/23/19 18:34 Electronically signed by Carito [facility] Conversion Construction Equipment Mechanic Helper Cerner at 08/23/2022 11:19 AM CDT documented in this encounter Plan of Treatment Not on file documented as of this encounter Visit Diagnoses Not on filedocumented in this encounter
--- OUTSIDE RECORDS SUMMARY | 2024-12-03 12:47 | XMS_ITS | Encounter Summary ---
Author Organization [employer] ([place], [place], [place], [place]) Address [address] [place] [address] Care Team Providers Care Computer Analyst Name Role Phone Unavailable Primary Care Provider Unavailabl e Encounter Details Date Type Department Care Team (Late st Contact Info) Description 04/25/2019 Transcribed Document [facility] 1 [place] [address] ProviderLuciano MD Social History Tobacco Use Types Packs/Day Years Used Date Smoking Tobacco: Never Assessed Comments Unknown Sex and Gender Information Value Date Recorded Sex Assigned at Not on file Legal Sex Female 6:01 PM CDT Gender Identity Not on file Sexual Orientation Not on file documented as of this encounter Miscellaneous Notes * Cerner Conversion Note - [facility] Aiyana ProviderMD - 04/25/2019 6:44 PM EST Pain Assessment Entered On: 04/26/2019 21:15 EST Performed On: 04/26/2019 20:17 EST by Daniela Buckner RN Intervention Information: HYDROmorphone Performed by Daniela Buckenr RN on 04/26/2019 19:47:00 EST HYDROmorphone,0.5mg IV [...]
--- OUTSIDE RECORDS SUMMARY | 2024-12-03 12:47 | XMS_ITS | Encounter Summary ---
Author Organization [employer] ([place], [place], [place], [place]) Address [address] [place] [address] Care Team Providers Care Glass Tube Bender Name Role Phone Unavailable Primary Care Provider Unavailabl e Encounter Details Date Type Department Care Team (Late st Contact Info) Description 04/25/2019 Transcribed Document [facility] Radiology 1 [place] [address] Provider, Luciano Bronson MD [...] [facility] Aiyana ProviderMD - 04/25/2019 6:45 PM EST [...]
--- OUTSIDE RECORDS SUMMARY | 2024-12-03 12:47 | XMS_ITS | Encounter Summary ---
Author Organization [employer] ([place], [place], [place], [place]) Address [address] [place] [address] Care Team Providers Care Claims Service Adjustor Name Role Phone Unavailable Primary Care Provider Unavailabl e Encounter Details Date Type Department Care Team (Late st Contact Info) Description 04/28/2019 Transcribed Document [facility] Radiology 1 [place] [address] Provider, Luciano Bronson MD Social [...] Note - [facility] Aiyana ProviderMD - 04/28/2019 4:17 PM EST UM Authorization Entered On: 04/28/2019 15:19 EST Performed On: 04/28/2019 15:17 EST by Gali Newman Rn-Utilization Review Primary Insurance Authorization Authorization and Policy Numbers : Insurance 1 Health Plan: AETNA MEDICARE REPL Policy Number: [id number] Authorization Number: [id number] Insurance Primary Name : Tanya [id number] Authorization Status-Primary : Awaiting callback Authorization Number-Primary : [id number] Authorized Service Begin Date-Primary : 04/25/2019 EST Authorization Comments-Primary : call back from ten lui with tanya requesting clinical be faxed to [phone]. clinical faxed per faith Bronson Authorization Comments-Primary : Comment 1: lvm with brigette lui with tanya for c/s . acb (Trent, Gali L, Rn-Utilization Review 04/28/2019 13:51) Comment 2: clinicals faxed via [employer]ner for cont stay (only 1 day approved) (BULMARO DUONG, RN-Utilization Review 04/26/2019 13:11) Comment 3: per STAR inpt approved 1 day auth# [id number] (FRANCY MILIAN, Strategic Planning Specialist 04/24/2019 13:26) Gali Newman Rn-Utilization Review - 04/28/2019 15:17 EST documented in this encounter Plan of Treatment Not on file documented as of this encounter Visit Diagnoses Not on filedocumented in this encounter
--- OUTSIDE RECORDS SUMMARY | 2024-12-03 12:47 | XMS_ITS | Encounter Summary ---
Author Organization [employer] ([place], [place], [place], [place]) Address [address] [place] [address] Care Team Providers Care Hand Shaper Name Role Phone Unavailable Primary Care Provider Unavailabl e Encounter Details Date Type Department Care Team (Late st Contact Info) Description 04/25/2019 Transcribed Document [facility] Neurology - [facility] [address] [facility] [address] [place] [address] Meliza Downs Jr., MD [address] [place] [address] 200 [place] [address] Social History Tobacco Use Types Packs/Day Years [...]
--- OUTSIDE RECORDS SUMMARY | 2024-12-03 12:47 | XMS_ITS | Encounter Summary ---
Author Organization [facility] Address [address] [place] [address] Care Team Providers Care Terminal Makeup Operator Name Role Phone Danelle Lennon APRN Primary Care Provider + [phone] Reason for Visit * Reason Comments Med Refill Encounter Details Date Type Department Care Team (Late st Contact Info) Description 10/08/2023 Refill [facility] [address] [place] [address] Alex Davis MD [address] [place] [address] Anxiety and depression; Postlaminectomy syndrome [...] documented as of this encounter Care Teams Terminal Makeup Operator Relationship Specialty Start Date End Date Danelle Lennon APRN [address] [place], [place] [id number] PCP - General Internal Medicine 06/18/24 documented as of this encounter
--- OUTSIDE RECORDS SUMMARY | 2024-12-03 12:47 | XMS_ITS | Encounter Summary ---
Author Organization [employer] ([place], [place], [place], [place]) Address [address] [place] [address] Care Team Providers Care Soda Worker Name Role Phone Unavailable Primary Care Provider Unavailabl e Encounter Details Date Type Department Care Team (Late st Contact Info) Description 05/02/2019 Transcribed Document [facility] Radiology 1 [place] [address] ProviderLuciano MD Social History Tobacco [...] [facility] Aiyana ProviderMD - 05/02/2019 8:10 PM EST [...]
--- OUTSIDE RECORDS SUMMARY | 2024-12-03 12:47 | XMS_ITS | Encounter Summary ---
Author Organization [employer] ([place], [place], [place], [place]) Address [address] [place] [address] Care Team Providers Care Casting Assistant Name Role Phone Unavailable Primary Care Provider Unavailabl e Encounter Details Date Type Department Care Team (Late st Contact Info) Description 05/05/2019 Transcribed Document [facility] Radiology 1 [place] [address] Provider, Luciano Bronson MD Social History Tobacco Use Types Packs/Day Years Used Date Smoking Tobacco: Never Assessed Comments Unknown Sex and Gender Information Value Date Recorded Sex Assigned at Not on file Legal Sex Female 6:01 PM CDT Gender Identity Not on file Sexual Orientation Not on file documented as of this encounter Miscellaneous Notes * Cerner Conversion Note - [facility] Aiyana ProviderMD - 05/05/2019 3:05 PM EST UM Authorization Entered On: 05/05/2019 14:05 EST Performed On: 05/05/2019 14:05 EST by Dayna Rios, Dry Cleaner Helper Primary Insurance Authorization Authorization and Policy Numbers : Insurance 1 Health Plan: AETNA MEDICARE REPL Policy Number: [id number] Authorization Number: [id number] Insurance Primary Name : Mariela [id number] Authorization Status-Primary : Admit approved Auth/Referral Contact Name-Primary : [place] Authorization Number-Primary : [id number] Number of Days Authorized-Primary : 8 Day(s) [...] on 05/01/2019. Tameka Davidson, RN. (Dayna Rios, Dry Cleaner Helper 04/30/2019 07:06) Comment 3: clinical faxed per cerner for 04/27 and 04/28 (Gali Newman, Rn-Utilization Review 04/28/2019 15:19) Comment 4: call back from tameka lui with [employer] requesting clinical be faxed to [phone]. clinical faxed per cerner (Gali Newman, Rn-Utilization Review 04/28/2019 15:17) Comment 5: lvm with birgette lui with [employer] for c/s . acb (Gali Newman, Rn-Utilization Review 04/28/2019 13:51) Comment 6: clinicals faxed via cerner for cont stay (only 1 day approved) (BULMARO DUONG, RN-Utilization Review 04/26/2019 13:11) Comment 7: per STAR inpt approved 1 day auth# [id number] (FRANCY MILIAN, Body Shop Estimator 04/24/2019 13:26) Dayna Rios, Dry Cleaner Helper - 05/05/2019 14:05 EST Electronically signed by Carito [facility] Conversion Journeyman Mechanic Cerner at 08/23/2022 11:19 AM CDT documented in this encounter Plan of Treatment Not on file documented as of this encounter Visit Diagnoses Not on filedocumented in this encounter
--- OUTSIDE RECORDS SUMMARY | 2024-12-03 12:47 | XMS_ITS | Encounter Summary ---
Author Organization [employer] ([place], [place], [place], [place]) Address [address] [place] [address] Care Team Providers Care Career Development Consultant Name Role Phone Unavailable Primary Care Provider Unavailabl e Encounter Details Date Type Department Care Team (Late st Contact Info) Description 04/27/2019 Transcribed Document [facility] Neurology - [address] [facility] 200 [place] [address] Meliza Downs Jr., MD [address] [place] [address] [address] [place] [address] Social History Tobacco Use Types Packs/Day Years [...]
--- OUTSIDE RECORDS SUMMARY | 2024-12-03 12:47 | XMS_ITS | Encounter Summary ---
Author Organization [employer] ([place], [place], [place], [place]) Address [address] [place] [address] Care Team Providers Care Sr. Social Media & Mobile Manager Name Role Phone Unavailable Primary Care Provider Unavailabl e Encounter Details Date Type Department Care Team (Late st Contact Info) Description 04/27/2019 Transcribed Document [facility] 1 [place] [address] ProviderLuciano MD Social History Tobacco [...] [facility] Aiyana ProviderMD - 04/27/2019 6:51 AM EST Height and Weight, Routine Entered On: 04/27/2019 5:52 EST Performed On: 04/27/2019 5:51 EST by Prisca Stephenson Patient Audio Video Technician Height and Weight, Routine Routine Weight Source : Bed scale Routine Weight Entry Format : Metric Routine Weight, Kilograms : 86.5 kg(Converted to: 190 lb 11 oz) Routine Weight Calculation : 86.5 kg Height Source : Measured Height Entry Format : [place] Height, Feet : 5 ft Height, Inches : 2 Inch Clinical Height : 157.48 cm Body Surface Area (BSA), Routine : 1.87 m2 Body Mass Index (BMI), Routine : 34.88 kg/m2 Prisca Stephenson Patient Audio Video Technician - 04/27/2019 5:51 EST documented in this encounter Plan of Treatment Not on file documented as of this encounter Visit Diagnoses Not on filedocumented in this encounter
--- OUTSIDE RECORDS SUMMARY | 2024-12-03 12:47 | XMS_ITS | Encounter Summary ---
Author Organization [employer] ([place], [place], [place], [place]) Address [address] [place] [address] Care Team Providers Care Teacher Cclc Name Role Phone Unavailable Primary Care Provider Unavailabl e Encounter Details Date Type Department Care Team (Late st Contact Info) Description 04/28/2019 Transcribed Document [facility] Radiology 1 [place] [address] Provider, Luciano Bronson MD Social [...] [facility] Aiyana ProviderMD - 04/28/2019 2:51 PM EST UM Authorization Entered On: 04/28/2019 13:51 EST Performed On: 04/28/2019 13:51 EST by Gali Newman Rn-Utilization Review Primary Insurance Authorization Authorization and Policy Numbers : Insurance 1 Health Plan: AETNA MEDICARE REPL Policy Number: [id number] Authorization Number: [id number] Insurance Primary Name : Mariela [id number] Authorization Status-Primary : Awaiting callback Authorization Number-Primary : [id number] Authorized Service Begin Date-Primary : 04/25/2019 EST Authorization Comments-Primary : lvm with brigette lui with [facility] for c/s . acb Historical Authorization Comments-Primary : Comment 1: clinicals faxed via [employer] for cont stay (only 1 day approved) (BULMARO DUONG RN-Utilization Review 04/26/2019 13:11) Comment 2: per STAR inpt approved 1 day auth# [id number] (FRANCY MILIAN, Dragline Oiler 04/24/2019 13:26) Gali Newman Rn-Utilization Review - 04/28/2019 13:51 EST Electronically signed by Carito [facility] Conversion Greens Tier Cerner at 08/23/2022 11:19 AM CDT documented in this encounter Plan of Treatment Not on file documented as of this encounter Visit Diagnoses Not on filedocumented in this encounter
--- OUTSIDE RECORDS SUMMARY | 2024-12-03 12:47 | XMS_ITS | Encounter Summary ---
Author Organization [employer] ([place], [place], [place], [place]) Address [address] [place] [address] Care Team Providers Care Malt House Operator Name Role Phone Unavailable Primary Care Provider Unavailabl e Encounter Details Date Type Department Care Team (Late st Contact Info) Description 04/28/2019 Transcribed Document [facility] [address] [facility] 200 [place] [address] Lane Ortiz Jr., MD [address] [place] [address] 200 [place] [address] Social History Tobacco Use Types Packs/Day Years [...] for leak. Continue PT. Will need rehab. [place] goodman. Medications alogliptin, 25 mg= 1 Tab, [...] 100 mg= 2 Cap, Oral, TID Metamucil [place] Smooth Texture Sugar Free, 1 Packet, Oral, [...] Lymph # 1.24 x10(3)/uL 04/28/2019 03:07 EST Mclennan % 9.2 % (High) 04/28/2019 03:07 EST Mclennan # 0.90 K/uL 04/28/2019 03:07 EST Eos [...] Appearance CLEAR2 04/28/2019 08:57 EST Urine Specific Industry >1.030 (High) 04/28/2019 08:57 EST Urine pH [...]
--- OUTSIDE RECORDS SUMMARY | 2024-12-03 12:47 | XMS_ITS | Encounter Summary ---
Author Organization [employer] ([place], [place], [place], [place]) Address [address] [place] [address] Care Team Providers Care Television Announcer Name Role Phone Unavailable Primary Care Provider Unavailabl e Encounter Details Date Type Department Care Team (Late st Contact Info) Description 05/02/2019 Transcribed Document [facility] Radiology 1 [place] [address] Provider, Luciano Bronson MD Social [...] * Cerner Conversion Note - [facility] Aiyana ProviderMD - 05/02/2019 1:41 PM EST Final Discharge Planning Entered On: 05/02/2019 12:43 EST Performed On: 05/02/2019 12:41 EST by ROMELIA MCADAMS RN-Industrial Engineering Director Final Discharge Planning Discharge Arrangements : Patient [...] Services (Related/SOC within 3 days)-06 ROMELIA MCADAMS, RN-Industrial Engineering Director - 05/02/2019 12:41 EST Final Narrative Note Final Narrative Note : Precrt denied for acute rehab at [facility]. PT dc'd pt yesterday stating she met all inpatient goals and ambulating 380ft. CM discussed with pt aND SPOUSE AT BEDSIDE.pT WILL LIKELY BE DENIED SUBACUTE WELL. tHEY AGREE TO GO HOME WITH hh FOR sn/pt/ot AND HAV NO PREFERENCE OF tube handler. Mattie WITH [facility]na WAS ABLE TO PLACE PT WITH [facility]. FRW and BSC obtained from [facility] and have been delivered. No other CM need identified. ROMELIA MCADAMS RN-Industrial Engineering Director - 05/02/2019 12:41 EST documented in this encounter Plan of Treatment Not on file documented as of this encounter Visit Diagnoses Not on filedocumented in this encounter
--- OUTSIDE RECORDS SUMMARY | 2024-12-03 12:47 | XMS_ITS | Encounter Summary ---
Author Organization [employer] ([place], [place], [place], [place]) Address [address] [place] [address] Care Team Providers Care Operations Systems Specialist Name Role Phone Unavailable Primary Care Provider Unavailabl e Encounter Details Date Type Department Care Team (Late st Contact Info) Description 04/26/2019 Transcribed Document [facility] Radiology 1 [place] [address] Provider, Luciano Bronson MD Social [...] [facility] Aiyana ProviderMD - 04/26/2019 2:11 PM EST UM Authorization Entered On: 04/26/2019 13:11 EST Performed On: 04/26/2019 13:11 EST by BULMARO DUONG RN-Utilization Review Primary Insurance Authorization Authorization and Policy Numbers : Insurance 1 Health Plan: AETNA MEDICARE REPL Policy Number: [id number] Authorization Number: [id number] Insurance Primary Name : Mariela [id number] Authorization Status-Primary : Awaiting callback Authorization Number-Primary : [id number] Authorized Service Begin Date-Primary : 04/25/2019 EST Authorization Comments-Primary : clinicals faxed via [employer] for cont stay (only 1 day approved) Historical Authorization Comments-Primary : Comment 1: per STAR inpt approved 1 day auth# [id number] (FRANCY MILIAN, Mortgage Lender 04/24/2019 13:26) BULMARO DUONG, RN-Utilization Review - 04/26/2019 13:11 EST Electronically signed by Carito, [facility] Conversion Firepot Operator And Tender Cerner at 08/23/2022 11:19 AM CDT documented in this encounter Plan of Treatment Not on file documented as of this encounter Visit Diagnoses Not on filedocumented in this encounter
--- OUTSIDE RECORDS SUMMARY | 2024-12-03 12:48 | XMS_ITS | Encounter Summary ---
Author Organization [employer] ([place], [place], [place], [place]) Address [address] [place] [address] Care Team Providers Care Metal Stamper Name Role Phone Unavailable Primary Care Provider Unavailabl e Encounter Details Date Type Department Care Team (Late st Contact Info) Description 04/25/2019 Transcribed Document [facility] Radiology 1 [place] [address] Provider, Luciano Bronson MD Social [...] - [facility] Aiyana ProviderMD - 04/25/2019 6:44 PM [...] FLORES JONES OTR/Ofelia - 04/26/2019 13:53 EST Web Administrator Goals, OT Grooming LTG Grid Goal #1 [...] EST Goal Status : Initial goal FLORES JNOES OTR/Ofelia - 04/26/2019 13:53 EST Treatment Note [...] FLORES JONES OTR/Ofelia - 04/26/2019 13:53 EST [place] OT Charges OT Eval Moderate Complexity : 1 FLORES JONES OTR/Ofelia - 04/26/2019 13:53 EST Electronically signed by Carito [facility] Conversion Grocery Clerk Stocking Cerner at 08/23/2022 11:19 AM CDT documented in this encounter Plan of Treatment Not on file documented as of this encounter Visit Diagnoses Not on filedocumented in this encounter
--- OUTSIDE RECORDS SUMMARY | 2024-12-03 12:48 | XMS_ITS | Encounter Summary ---
Author Organization [employer] ([place], [place], [place], [place]) Address [address] [place] [address] Care Team Providers Care Core Laying Machine Operator Name Role Phone Unavailable Primary Care Provider Unavailabl e Encounter Details Date Type Department Care Team (Late st Contact Info) Description 05/02/2019 Transcribed Document [facility] Radiology 1 [place] [address] ProviderLuciano MD Social History Tobacco [...] at home: Medicines ??? Take or apply mhfb-zla-rtoqnos and prescription medicines only as told by [...] cannot use soap and water, use hand core drier. ? Change your bandage as told by [...] 12/26/2008 Document Revised: 08/24/2016 Document Reviewed: 09/06/2015 Secure Outcomes Interactive Patient Education ? 2019 Elsevier Inc. [...] and water are not available, use hand core drier. ? Change your dressing as told by [...] or a bad smell. Medicines ??? Take derz-syt-cvysnee and prescription medicines only as told by [...] urine clear or pale yellow. ? Take qksl-tce-bhgllcc or prescription medicines. ? Eat foods that [...] 09/03/2016 Elsevier Interactive Patient Education ? 2019 [employer] documented in this encounter Plan of Treatment Not on file documented as of this encounter Visit Diagnoses Not on filedocumented in this encounter
--- OUTSIDE RECORDS SUMMARY | 2024-12-03 12:48 | XMS_ITS | Encounter Summary ---
Author Organization [employer] ([place], [place], [place], [place]) Address [address] [place] [address] Care Team Providers Care Looper Operator Name Role Phone Unavailable Primary Care Provider Unavailabl e Encounter Details Date Type Department Care Team (Late st Contact Info) Description 05/02/2019 Transcribed Document [facility] Neurology - [address] [place] [address] [address] [place] [address] Meliza Downs Jr., MD [address] [place] [address] [address] [place] [address] Social History Tobacco Use Types Packs/Day Years [...]
--- OUTSIDE RECORDS SUMMARY | 2024-12-03 12:48 | XMS_ITS | Encounter Summary ---
Author Organization [employer] ([place], [place], [place], [place]) Address [address] [place] [address] Care Team Providers Care Composition Worker Name Role Phone Unavailable Primary Care Provider Unavailabl e Encounter Details Date Type Department Care Team (Late st Contact Info) Description 05/02/2019 Transcribed Document [facility] Neurology - [address] [facility] 200 [place] [address] Meliza Downs Jr., MD [address] [place] [address] [address] [place] [address] Social History Tobacco Use Types Packs/Day Years [...] 100 mg= 2 Cap, Oral, TID Metamucil [place] Smooth Texture Sugar Free, 1 Packet, Oral, [...] Percent Man 24 % 05/02/2019 03:02 EST [place] Percent Man 8 % (High) 05/02/2019 03:02 [...]
--- OUTSIDE RECORDS SUMMARY | 2024-12-03 12:48 | XMS_ITS | Clinical Summary ---
Author Organization [facility] Address [address] [facility] [address] [place] [address] Care Team Providers Care Track Production Engineer Name Role Phone CharliBenitaEv RINA Primary Care Provider [phone] Allergies Active Allergy Reactions Criticality Noted Date [...] (eight) hours if needed. Active HYDROcodone-iain taminophen ([place]) 5-325 MG tablet Take 1 tablet by [...] Visit [facility] [address] [place] [address] Nasrin Roque PA [address] [place] [address], [address] [place] [address] Health Maintenance Due Date Last [...] Insurance [employer] MEDICARE ADVANTAGE Care Teams Track Production Engineer Relationship Specialty Start Date End Date Ev Augustin NP [address] [place] [address] PCP - General 12/26/19
--- OUTSIDE RECORDS SUMMARY | 2024-12-03 12:48 | XMS_ITS | Encounter Summary ---
Author Organization [employer] ([place], [place], [place], [place]) Address [address] [place] [address] Care Team Providers Care Jewel Setter Name Role Phone Unavailable Primary Care Provider Unavailabl e Encounter Details Date Type Department Care Team (Late st Contact Info) Description 04/25/2019 Transcribed Document [facility] Radiology 1 [place] [address] Provider, Luciano Bronson MD Social [...] Note - [facility] Aiyana ProviderMD - 04/25/2019 6:44 PM [...] AGUILA DANIELS, PT - 04/26/2019 13:19 EST Rag Cutting Machine Feeder Goals Mobility/Bed Mobility LTG PT Grid Goal [...] AGUILA DANIELS, PT - 04/26/2019 13:19 EST [place] PT Charges PT Eval Low Complexity : 1 AGUILA DANIELS, PT - 04/26/2019 13:19 EST Electronically signed by Carito [facility] Conversion Application Security Engineer Cerner at 08/23/2022 11:19 AM CDT documented in this encounter Plan of Treatment Not on file documented as of this encounter Visit Diagnoses Not on filedocumented in this encounter
--- OUTSIDE RECORDS SUMMARY | 2024-12-03 12:48 | XMS_ITS | Encounter Summary ---
Author Organization [employer] ([place], [place], [place], [place]) Address [address] [place] [address] Care Team Providers Care Pourer Crane Ladle Name Role Phone Unavailable Primary Care Provider Unavailabl e Encounter Details Date Type Department Care Team (Late st Contact Info) Description 04/25/2019 Transcribed Document [facility] Radiology [address] [place] [address] Provider, Luciano Bronson MD Social History Tobacco Use Types Packs/Day Years Used Date Smoking Tobacco: Never Assessed Comments Unknown Sex and Gender Information Value Date Recorded Sex Assigned at Not on file Legal Sex Female 6:01 PM CDT Gender Identity Not on file Sexual Orientation Not on file documented as of this encounter Miscellaneous Notes * Cerner Conversion Note - [facility] Aiyana ProviderMD - 04/25/2019 1:05 PM EST [facility] Main OR PACU Summary Primary Physician: MELIZA DOWNS MD-[facility] Finalized Date/Time: 04/25/19 20:10:04 Pt. Name: ADDY GERTRUDIS Gilbert /Sex: 1955 Female Med Rec #: [id number] Physician: MELIAZ DOWNS MD-[facility] Financial #: [id number] Pt. Type: I Room/Bed: [facility]/ Admit/Disch: 04/25/19 06:38:00 - Institution: [facility] Main OR PACU I Case Times Entry [...]
--- OUTSIDE RECORDS SUMMARY | 2024-12-03 12:48 | XMS_ITS | Encounter Summary ---
Author Organization [employer] ([place], [place], [place], [place]) Address [address] [place] [address] Care Team Providers Care Financial Planner Name Role Phone Unavailable Primary Care Provider Unavailabl e Encounter Details Date Type Department Care Team (Late st Contact Info) Description 05/02/2019 Transcribed Document [facility] Radiology [address] [place] [address] Provider, Luciano Bronson MD Social [...] Cerner Conversion Note - [facility] Aiyana ProviderMD - 05/02/2019 1:40 PM EST On Going Discharge Planning Entered On: 05/02/2019 12:41 EST Performed On: 05/02/2019 12:40 EST by ROMELIA MCADAMS RN-Crane EngineerWelding Estimator Progress Note Discharge Arrangements : Patient Post-Acute [...] Post Acute Providers : Yes ROMELIA MCADAMS, RN-Crane Engineer - 05/02/2019 12:40 EST documented in this encounter Plan of Treatment Not on file documented as of this encounter Visit Diagnoses Not on filedocumented in this encounter
--- OUTSIDE RECORDS SUMMARY | 2024-12-03 12:48 | XMS_ITS | Encounter Summary ---
Author Organization [employer] ([place], [place], [place], [place]) Address [address] [place] [address] Care Team Providers Care Office Services Associate Name Role Phone Unavailable Primary Care Provider Unavailabl e Encounter Details Date Type Department Care Team (Late st Contact Info) Description 05/01/2019 Transcribed Document [facility] Radiology [address] [place] [address] ProviderLuciano MD Social History Tobacco Use Types Packs/Day Years Used Date Smoking Tobacco: Never Assessed Comments Unknown Sex and Gender Information Value Date Recorded Sex Assigned at Not on file Legal Sex Female 6:01 PM CDT Gender Identity Not on file Sexual Orientation Not on file documented as of this encounter Miscellaneous Notes * Cerner Conversion Note - [facility] Aiyana ProviderMD - 05/01/2019 6:00 PM EST Chart Check - Review Order Profile Entered On: 05/01/2019 18:11 EST Performed On: 05/01/2019 17:00 EST by Nicolasa Abernathy RN Chart Check Powerplans Initiated/Discontinued as Appropriate : Yes All Active Orders Reviewed : Yes Nicolasa Abernathy RN - 05/01/2019 18:11 EST Electronically signed by Carito [facility] Conversion Child Day Care Teacher Cerner at 08/23/2022 11:19 AM CDT documented in this encounter Plan of Treatment Not on file documented as of this encounter Visit Diagnoses Not on filedocumented in this encounter
--- OUTSIDE RECORDS SUMMARY | 2024-12-03 12:48 | XMS_ITS | Encounter Summary ---
[facility] Address [address] [place] [id number] Care Team Providers Care Environmental Field Team Member Name Role Phone Danelle Lennon APRN Primary Care Provider [phone] Reason for Visit * Reason Onset Date Comments Shortness of Breath 12/12/2016 Encounter Details Date Type Department Care Team ([facility] st Contact Info) Description 12/12/2016 Telephone [facility] INTERNAL MEDICINE [address] [place] [address] Madelaine Norman, CONTROL CLERK HEAD [address] [phone] Shortness of Breath Social History Tobacco Use [...] documented as of this encounter Care Teams Environmental Field Team Member Relationship Specialty Start Date End Date Danelle Lennon APRN [address] [place] [address] PCP - General Internal Medicine 06/18/24 documented as of this encounter
--- OUTSIDE RECORDS SUMMARY | 2024-12-03 12:48 | XMS_ITS | Encounter Summary ---
Author Organization [employer] ([place], [place], [place], [place]) Address [address] [place] [address] Care Team Providers Care Volcanology Professor Name Role Phone Unavailable Primary Care Provider Unavailabl e Encounter Details Date Type Department Care Team (Late st Contact Info) Description 05/01/2019 Transcribed Document [facility] Radiology [address] [place] [address] Provider, Luciano Bronson MD Social History Tobacco Use Types Packs/Day Years Used Date Smoking Tobacco: Never Assessed Comments Unknown Sex and Gender Information Value Date Recorded Sex Assigned at Not on file Legal Sex Female 6:01 PM CDT Gender Identity Not on file Sexual Orientation Not on file documented as of this encounter Miscellaneous Notes * Cerner Conversion Note - [facility] Aiyana ProviderMD - 05/01/2019 3:26 PM EST On Going Discharge Planning Entered On: 05/01/2019 14:26 EST Performed On: 05/01/2019 14:26 EST by MERLINE NEWMAN RN-Roofing Sales RepresentativeSupervisor Building Maintenance Progress Note Discharge Arrangements : Patient Post-Acute Information Patient Name: GERTRUDIS DALY Gender: Female : [birth year] Age: 63 Years No Post-Acute Placement(s) Listed No Post-Acute Service(s) Listed No [place] Referral(s) Listed Discharge Options Discussed with Patient : Short term rehabilitation Barriers to Discharge Identified : Clinical Condition of Patient Barriers to Discharge Unresolved : Clinical Condition of Patient MERLINE NEWMAN RN-Roofing Sales Representative - 05/01/2019 14:26 EST Narrative Progress Note Narrative Progress Note : [facility] precert still pend Historical Progress Note : Urology consulted for neurogenic bladder. Pt's choices of [facility] and [facility] are not in network with pt's payor source. D/W pt at bedside. She has chose [facility] now. Referral sent via Tc and informed Colleene. Precert intitated for acute. CM will continue to follow. ROMELIA MCADAMS RN-Roofing Sales Representative - 04/29/19 15:26:05 MERLINE NEWMAN, RN-Roofing Sales Representative - 05/01/2019 14:26 EST Electronically signed by Carito [facility] Conversion Instructor Physical Education Cerner at 08/23/2022 11:19 AM CDT documented in this encounter Plan of Treatment Not on file documented as of this encounter Visit Diagnoses Not on filedocumented in this encounter
--- OUTSIDE RECORDS SUMMARY | 2024-12-03 12:48 | XMS_ITS | Clinical Summary ---
Author Organization [facility] Address [address] [place] [id number] Care Team Providers Care Crystal Grower Name Role Phone Danelle Lennon APRN Primary Care Provider Allergies Active Allergy Reactions Criticality Noted Date [...] - 29.0 mg/g 06/18/2024 12:51 AM EDT [facility] Creatinine, Urine 113.4 mg/dL 06/18/2024 12:51 AM EDT [facility] Microalbumin, Urine 1.3 mg/dL 06/18/2024 12:51 AM EDT [facility] Urine Urine specimen obtained by clean catch procedure / Unknown Collection / Unknown 06/17/2024 3:48 PM EDT 06/17/2024 3:48 PM EDT Bridget VILLAGOMEZ-C URINE ORDERABLES Final Resu lt [facility]
[address] [place] [address], * Colonoscopy, Scan (08/20/2023) us Alex Davis [...] - 05/31/2023 3:08 AM EST Performed at: [address] [place] [id number] Restaurant Crew: Lane Haile MD, Phone: [phone] Patient Fasting: Y us Alex Davis MD LAB BLOOD ORDERABLES Final Resu lt [facility] ([facility]ULATORY) [address] [place] [id number], [facility] [address] [place] [address], [place] [phone] * (ABNORMAL) Lipid Panel (05/30/2023 10:50 AM [...] - 05/31/2023 3:08 AM EST Performed at: [address] [place] [id number] Restaurant Crew: Lane Haile MD, Phone: [phone] Patient Fasting: Y Alex Davis MD LAB BLOOD ORDERABLES Final Resu lt [facility] [employer] [facility] ([facility]) [address] [place] [address], [facility] [address] [place] [address], [place] [phone] * SCANNED - EYE EXAM (06/23/2021) Anatomical Region Laterality Modality Other Roc Tracey PA-C CHART REVIEW TABS Final Result * Hepatitis Panel, Acute (12/26/2017 2:04 PM EDT) Hepatitis B Surface Ag Non-Reacti ve Non-Reacti ve 12/26/2017 7:06 PM EDT [facility] Hep A IgM Non-Reacti ve Non-Reacti ve 12/26/2017 7:06 PM EDT [facility] Comment:Results may be false ly decreased if patient taking Biotin. Hep B C IgM Non-Reacti ve Non-Reacti ve 12/26/2017 7:06 PM EDT [facility] Comment:Results may be false ly decreased if patient taking Biotin. Hepatitis C Ab Non-Reacti ve Non-Reacti ve 12/26/2017 7:06 PM EDT [facility] Blood Venipuncture / Unknown 12/26/2017 2:04 PM EDT 12/26/2017 2:04 PM EDT us Guerline Randall BAR MANAGER LAB BLOOD ORDERABLES Final Res ult [facility]
[address] [place] [address], from Last 3 Months or Most Recently Relevant to Health Maintenance Insurance [facility] [employer] PPO Care Teams Crystal Grower Relationship Specialty Start Date End Date Danelle Lennon APRN [address] [place] [address] AIMEE MARIE [address] PCP - General Internal Medicine 06/18/24
--- NOTE | 2024-12-03 13:09 | PC.NURSE ---
patient to radiology with staff via wheelchair
--- NOTE | 2024-12-03 13:31 | CT_ITS ---
FINAL REPORT TECHNIQUE: Axial CT images were performed through the head. Coronal reformatted images were submitted. This study was performed with techniques to keep radiation doses as low as reasonably achievable (ALARA). Individualized dose reduction techniques using automated exposure control or adjustment of mA and/or kV according to the patient's size were employed. CLINICAL HISTORY: fall, R retroauricular trauma COMPARISON: 10/31/2023 FINDINGS: The ventricles are normal in size. There is no evidence of hemorrhage. There is no mass or edema identified. There is no abnormal extra-axial fluid seen. The sinuses are well aerated. IMPRESSION: No acute intracranial process. Reviewed, Interpreted and Dictated by Everett Nails MD Transcribed by Soraya Silva Authenticated and [facility]
--- NOTE | 2024-12-03 13:33 | HMH.EDGENADL ---
Discharge Plan Disposition Patient Disposition: Home, Self-Care Prescriptions Prescriptions: No Action cholecalciferol (vitamin D3) 125 mcg (5,000 unit) capsule 125 mcg PO DAILY Movantik 25 mg tablet 25 mg PO DAILY Rx Instructions: must be taken on empty stomach; no food 1 hr after or 2-3 hrs before dose potassium 99 mg tablet 99 mg PO DAILY magnesium 250 mg tablet 250 mg PO DAILY insulin glargine [Lantus Solostar U-100 Insulin] 100 unit/mL (3 mL) insulin pen 55 unit SQ .morning Qty: 20 0RF Rx Instructions: Take 55 units daily. bethanechol chloride 50 mg tablet 50 mg PO TID Zyrtec 10 mg capsule 10 mg PO DAILY PRN (Reason: allergies) Airsupra 90-80 mcg/actuation HFA aerosol inhaler 2 inh inhalation 6XD PRN (Reason: shortness of breath or wheezing) Qty: 5.9 0RF (DME) Dexcom G7 Sensor Device See Rx Instructions .Route Qty: 3 3RF Rx Instructions: As directed, change every 10 days Repatha SureClick 140 mg/mL pen injector 140 mg SQ Q2W Qty: 2 5RF insulin lispro [Humalog KwikPen Insulin] 100 unit/mL insulin pen 16 unit SQ TID PRN budesonide-formoterol [Symbicort] 160-4.5 mcg/actuation HFA aerosol inhaler 2 puff inhalation BID 90 Days Qty: 10.2 2RF cefuroxime axetil 500 mg tablet 500 mg PO BID PRN Motegrity 2 mg tablet 2 mg PO DAILY Qty: 90 3RF Trulance 3 mg tablet 3 mg PO DAILY Qty: 90 2RF tramadol 50 mg tablet 50 mg PO Q8H PRN (Reason: Pain) Qty: 90 0RF omeprazole 40 mg capsule,delayed release(DR/EC) See Rx Instructions .ROUTE .COMPLEX Qty: 90 3RF Dose Instruction: TAKE 1 CAPSULE BY MOUTH DAILY FOR REFLUX/ACID REFLUX Rx Instructions: TAKE 1 CAPSULE BY MOUTH DAILY FOR REFLUX/ACID REFLUX trazodone 50 mg tablet See Rx Instructions .ROUTE .COMPLEX Qty: 90 3RF Dose Instruction: TAKE 1 TABLET BY MOUTH AT BEDTIME EVERY NIGHT NEEDED FOR SLEEP Rx Instructions: TAKE 1 TABLET BY MOUTH AT BEDTIME EVERY NIGHT NEEDED FOR SLEEP (DME) pen needle, diabetic 32 gauge x 5/32 needle See Rx Instructions .ROUTE .COMPLEX Qty: 300 0RF Dose Instruction: USE DIRECTED Rx Instructions: USE DIRECTED ropinirole 1 mg tablet See Rx Instructions .ROUTE .COMPLEX Qty: 90 3RF Dose Instruction: TAKE 1 TABLET BY MOUTH DAILY AT BEDTIME FOR RLS; ADMINISTER 1-3 HOURS BEFORE BEDTIME Rx Instructions: TAKE 1 TABLET BY MOUTH DAILY AT BEDTIME FOR RLS; ADMINISTER 1-3 HOURS BEFORE BEDTIME levothyroxine 25 mcg tablet See Rx Instructions .ROUTE .COMPLEX Qty: 90 0RF Dose Instruction: TAKE 1 TABLET BY MOUTH DAILY Rx Instructions: TAKE 1 TABLET BY MOUTH DAILY Tradjenta 5 mg tablet See Rx Instructions .ROUTE .COMPLEX Qty: 90 3RF Dose Instruction: TAKE 1 TABLET BY MOUTH DAILY Rx Instructions: TAKE 1 TABLET BY MOUTH DAILY bumetanide 1 mg tablet 1 mg PO .COMPLEX 90 Days Qty: 270 3RF Rx Instructions: Take 2 mg in AM and 1 mg in the afternoon dapagliflozin propanediol [Farxiga] 10 mg tablet 10 mg PO DAILY Qty: 90 3RF isosorbide mononitrate 30 mg tablet extended release 24 hr 30 mg PO DAILY Qty: 90 3RF nifedipine 60 mg tablet extended release 60 mg PO DAILY 90 Days Qty: 90 1RF Rx Instructions: TAKE 1 TABLET DAILY Nexletol 180 mg tablet 180 mg PO DAILY Qty: 90 3RF meloxicam 7.5 mg tablet See Rx Instructions .ROUTE .COMPLEX Qty: 90 3RF Dose Instruction: TAKE 1 TABLET BY MOUTH DAILY FOR PAIN Rx Instructions: TAKE 1 TABLET BY MOUTH DAILY FOR PAIN Referrals Follow up/Referrals: Danelle Lennon APRN [Primary Care Provider, Medical] - See instructions Activity Restrictions/Add. Instructions Additional Instructions/Restrictions: If you develop any new or worsening symptoms, such as slurring speech, worsening severe headache, facial drooping, numbness or weakness of 1 or both of your legs, return to the emergency department for evaluation. Clinical Impressions Clinical Impression: Fall Print Language Print Language: Latvian Discharge ED Provider: Levi Ervin General Adult HPI <Efrain Smith MD - Last Filed: 12/03/24 15:06> General Chief complaint: Fall Stated complaint: [id number] Fall, R shoulder pain, Head pain Time Seen by Provider: 12/03/24 12:34 Mode of Arrival: Ambulatory Source of Information: Patient Description of Symptoms (Recalled from ER Triage Doc. by RN): patient was taking a shower 3 hours ago and went to step in her tub/shower, and slipped. falling and hitting her head and right shoulder. she does have a knot abover her right ear. History of Present Illness HPI narrative: Patient is a 68-year-old female not on anticoagulants who presents emergency department for evaluation of traumatic injury sustained in a mechanical fall. Patient slipped in her shower fall striking her right head right shoulder and right knee. No loss of consciousness. Patient has noticed a bump behind her right ear causing her to become concerned and presented here for continued evaluation. No other acute complaints at this time. Related Data Home Medications ?Medication ?Instructions ?Recorded ?Confirmed bethanechol chloride 50 mg tablet 50 mg PO TID bladder control 05/01/22 11/18/24 cetirizine 10 mg capsule (Zyrtec) 10 mg PO DAILY PRN allergies 05/01/22 11/18/24 cholecalciferol (vitamin D3) 125 125 mcg PO DAILY 05/09/24 11/18/24 mcg (5,000 unit) capsule magnesium 250 mg tablet 250 mg PO DAILY 05/09/24 11/18/24 naloxegol 25 mg tablet (Movantik) 25 mg PO DAILY 05/09/24 11/18/24 potassium 99 mg tablet 99 mg PO DAILY 05/09/24 11/18/24 cefuroxime axetil 500 mg tablet 500 mg PO BID PRN 11/07/24 11/18/24 insulin lispro 100 unit/mL 16 unit SQ TID PRN 11/07/24 11/18/24 subcutaneous pen (Humalog KwikPen (U-100) Insulin) Previous Rx's ?Medication ?Instructions ?Recorded albuterol 90 mcg-budesonide 80 2 inh inhalation 6XD PRN shortness 11/14/23 mcg/actuation HFA aerosol inhaler of breath or wheezing #5.9 grams (Airsupra) prucalopride 2 mg tablet 2 mg PO DAILY #90 tabs 04/23/24 (Motegrity) blood-glucose sensor ([employer] G7 #3 ea 06/02/24 Sensor device) plecanatide 3 mg tablet (Trulance) 3 mg PO DAILY #90 tabs 07/24/24 evolocumab 140 mg/mL subcutaneous 140 mg SQ Q2W #2 mL 07/28/24 pen injector (Basilia Camachoick) tramadol 50 mg tablet 50 mg PO Q8H PRN Pain #90 tabs 08/29/24 omeprazole 40 mg capsule,delayed See Rx Instructions .Route 10/06/24 release .COMPLEX #90 caps budesonide-formoterol HFA 160 2 puff inhalation BID 90 days 10/14/24 mcg-4.5 mcg/actuation aerosol #10.2 grams inhaler (Symbicort) levothyroxine 25 mcg tablet See Rx Instructions .Route 10/14/24 Held on 11/18/24. .COMPLEX #90 tabs Instructions: Home Medication placed on hold at Doctor's office pen needle, diabetic 32 gauge x #300 ea 10/14/24 ropinirole 1 mg tablet See Rx Instructions .Route 10/14/24 .COMPLEX #90 tabs trazodone 50 mg tablet See Rx Instructions .Route 10/14/24 .COMPLEX #90 tabs linagliptin 5 mg tablet (Tradjenta) See Rx Instructions .Route 10/15/24 .COMPLEX #90 tabs Farxiga 10 mg tablet 10 mg PO DAILY #90 tabs 10/24/24 (dapagliflozin propanediol) bumetanide 1 mg tablet 1 mg PO .COMPLEX 90 days #270 tabs 10/24/24 isosorbide mononitrate 30 mg 30 mg PO DAILY #90 tabs 10/24/24 tablet,extended release 24 hr nifedipine 60 mg tablet,extended 60 mg PO DAILY HTN 90 days #90 tabs 10/24/24 release bempedoic acid 180 mg tablet 180 mg PO DAILY #90 tabs 11/14/24 (Nexletol) meloxicam 7.5 mg tablet See Rx Instructions .Route 11/17/24 .COMPLEX #90 tabs insulin glargine 100 unit/mL (3 55 unit (0.55 mL) SQ .morning #20 11/18/24 mL) subcutaneous pen (Lantus mL Solostar U-100 Insulin) Allergies Allergy/AdvReac Type Severity Reaction Status Date / Time amlodipine (AMLODIPINE) Allergy Intermediate Other Verified 11/18/24 10:14 Beta-Blockers Allergy Intermediate Cough Verified 11/18/24 10:14 (Beta-Adrenergic Bloc cyclobenzaprine Allergy Intermediate Other Verified 11/18/24 10:14 (CYCLOBENZAPRINE) hydrochlorothiazide Allergy Intermediate Other Verified 11/18/24 10:14 (HYDROCHLOROTHIAZIDE) latex (LATEX) Allergy Intermediate Rash Verified 11/18/24 10:14 pioglitazone (From ACTOS) Allergy Intermediate itching Verified 11/18/24 10:14 spironolactone Allergy Intermediate Other Verified 11/18/24 10:14 (SPIRONOLACTONE) Penicillins Allergy Mild itching Verified 11/18/24 10:14 atorvastatin (From Lipitor) AdvReac Severe Verified 11/18/24 10:14 rosuvastatin (From Crestor) AdvReac Intermediate myalgia Verified 11/18/24 10:14 PFSH <Efrain Smith MD - Last Filed: 12/03/24 15:06> PFS Disclaimer: The information contained in this section may have been updated after the patient was seen, as this information can be updated by other users. Medical History Pulmonary hypertension Allergic rhinitis Asthma Other chest pain Healthcare maintenance Diabetes mellitus (HFpEF) heart failure with preserved ejection fraction SOB (shortness of breath) on exertion Cough Edema Sleep apnea Preoperative clearance Palpitations Hypertension Chest pain Dizziness Edema of lower extremity Restless sleeper Somnolence, daytime Hyperlipidemia Hypertensive heart disease Surgical History S/P cardiac cath Hx of elbow surgery left History of hysterectomy History of back surgery x 5 Family History Other Family history of diabetes mellitus type II Family history of hypertension Family hx-kidney disease Social History Smoking Status: Never smoker alcohol intake: former substance use type: denies use current occupational status: disabled Travel in the last 8 weeks?: None household members: spouse housing: house lives independently: Yes marital status: education level: college current occupational exposures/hazards: No caffeine: Yes special kris needs: No agree to transfusion: No do you feel safe at home: Yes victim of physical abuse: No victim of emotional abuse: No victim of sexual abuse: No would you like helpful sources: No Have you lived/traveled outside US in past 30 days?: No Contact w/someone who lives/traveled outside US past 30 days?: No Exposure to someone with infectious disease in past 14 days?: No Do you have a fever (greater than 100.4 F or 38 C)?: No Have you tested positive for COVID-19?: No Exposed to someone with COVID-19 in past 14 days?: No Do you have a sore throat?: No Do you have a cough?: No Do you have any weakness?: No Do you have any diarrhea?: No Are you experiencing any unusual bleeding?: No Do you have any muscle aches/pain?: No Do you have any abdominal pain?: No Are you experiencing loss of taste or smell?: No Other Medical History Have you received the Flu Vaccine for this season: No Have you received the Pneumonia Vaccine: Yes <Efrain Smith MD - Last Filed: 12/03/24 15:06> ROS Obtained: Yes Systems reviewed as appropriate & no additional complaints except as documented Physical Exam <Efrain Smith MD - Last Filed: 12/03/24 15:06> General General appearance: alert Head Head exam: normocephalic and other (Right retroauricular firmness) Eye Eye exam: Present PERRL and EOMI ENT ENT exam: Present mucous membranes moist Neck Neck exam: Present normal inspection; Absent tenderness (No midline) Chest Chest inspection: Present normal inspection and symmetric chest wall rise Respiratory Respiratory exam: Present normal lung sounds bilaterally; Absent respiratory distress Cardiovascular Cardiovascular exam: Present regular rate and normal rhythm Abdominal Exam Abdominal exam: Present soft; Absent tenderness Extremities Exam Extremities exam: Present normal inspection and other (Ranging elbow and shoulder with some pain. No tenderness over the right knee. Distally neurovascular intact right upper and right lower extremity.) Neurological Exam Neurological exam: Present alert Psychiatric Psychiatric exam: Present normal affect Skin Skin exam: Present warm and dry Medical Decision Making <Efrain Smith MD - Last Filed: 12/03/24 15:06> Medical Records Screening: Per USPSTF and CDC recommendations, given the prevalence of disease in our region, it is our hospital?s policy to screen for HIV and viral Hepatitis for all patients aged 18 and over and those with ongoing risk factors. Abrahan Inquiry Pt receiving controlled substance: No Vital Signs: 12/03/24 12:29 12/03/24 14:10 Temperature 98.1 F Temperature Source Oral Pulse Rate [Right Radial] 92 H Respiratory Rate 18 Blood Pressure [Right Arm] 142/82 H Blood Pressure Mean [Right Arm] 102 Blood Pressure Source [Right Arm] Automatic Cuff Blood Pressure Position [Right Arm] Sitting 02 Sat by Pulse Oximetry 98 96 Oxygen Delivery Method Room Air Room Air Orders (Tests/Meds): ED MEDICATIONS Discontinued Medications Generic Name Dose Route Start Last Admin Trade Name Anibal PRN Reason Stop Dose Admin Acetaminophen 1,000 mg 12/03/24 13:31 12/03/24 14:08 Acetaminophen 500mg Tab PO 12/03/24 13:32 1,000 mg ONCE ONE Administration Methocarbamol 1,000 mg 12/03/24 13:33 12/03/24 14:08 Methocarbamol 500mg Tablet PO 12/03/24 13:34 1,000 mg ONCE ONE Administration ORDERS Category Date Time Status CT cervical spine wo con Stat Cat Scan 12/03/24 13:[address] head/brain wo con Stat Cat Scan 12/03/24 13:31 Completed Knee XR right 3 views [XR knee RT 3V] Stat Exams 12/03/24 12:36 Completed XR elbow RT min 3V Stat Exams 12/03/24 12:36 Completed XR shoulder RT min 2V Stat Exams 12/03/24 12:36 Completed XR wrist RT min 3V Stat Exams 12/03/24 12:36 Completed Medical Decision Narrative: In summary patient is a 68-year-old female with past medical history of scrota above presents emerged part for evaluation traumatic injury sustained in a fall. Patient is hemodynamically stable nontoxic-appearing arrival, afebrile. Patient is ranging her neck freely will not initiate CPR and precautions at this time. Differential includes trauma to the head, neck, right shoulder, right knee, right elbow. Workup will be conducted with plain films and noncontrasted CT scan of the head and cervical spine. Initial inventions include Tylenol, muscle relaxer. Patient clinically has a hematoma over her parietal skull on the right. Plain films of extremity informally negative for acute fracture. Noncontrasted CT scan of the head informally visualized by me no acute large intra-axial hemorrhage. Formal read pending at time of transition of care to the oncoming physician, Dr. Ervin <Levi Ervin MD - Last Filed: 12/03/24 16:23> Vital Signs: 12/03/24 12:29 12/03/24 14:10 Temperature 98.1 F Temperature Source Oral Pulse Rate [Right Radial] 92 H Respiratory Rate 18 Blood Pressure [Right Arm] 142/82 H Blood Pressure Mean [Right Arm] 102 Blood Pressure Source [Right Arm] Automatic Cuff Blood Pressure Position [Right Arm] Sitting 02 Sat by Pulse Oximetry 98 96 Oxygen Delivery Method Room Air Room Air Orders (Tests/Meds): ED MEDICATIONS Discontinued Medications Generic Name Dose Route Start Last Admin Trade Name Freq PRN Reason Stop Dose Admin Acetaminophen 1,000 mg 12/03/24 13:31 12/03/24 14:08 Acetaminophen 500mg Tab PO 12/03/24 13:32 1,000 mg ONCE ONE Administration Methocarbamol 1,000 mg 12/03/24 13:33 12/03/24 14:08 Methocarbamol 500mg Tablet PO 12/03/24 13:34 1,000 mg ONCE ONE Administration ORDERS Category Date Time Status CT cervical spine wo con Stat Cat Scan 12/03/24 13:[address] head/brain wo con Stat Cat Scan 12/03/24 13:31 Completed Knee XR right 3 views [XR knee RT 3V] Stat Exams 12/03/24 12:36 Completed XR elbow RT min 3V Stat Exams 12/03/24 12:36 Completed XR shoulder RT min 2V Stat Exams 12/03/24 12:36 Completed XR wrist RT min 3V Stat Exams 12/03/24 12:36 Completed Medical Decision Narrative: In summary patient is a 68-year-old female with past medical history of scrota above presents emerged part for evaluation traumatic injury sustained in a fall. Patient is hemodynamically stable nontoxic-appearing arrival, afebrile. Patient is ranging her neck freely will not initiate CPR and precautions at this time. Differential includes trauma to the head, neck, right shoulder, right knee, right elbow. Workup will be conducted with plain films and noncontrasted CT scan of the head and cervical spine. Initial inventions include Tylenol, muscle relaxer. Patient clinically has a hematoma over her parietal skull on the right. Plain films of extremity informally negative for acute fracture. Noncontrasted CT scan of the head informally visualized by me no acute large intra-axial hemorrhage. Formal read pending at time of transition of care to the oncoming physician, Dr. Aziza Ervin MD At the time my assumption of care, plan was to follow-up formal radiology interpretation of CT imaging. CT imaging was interpreted by me personally. I do not appreciate any intracranial hemorrhage, mass or midline shift. No cervical spine fracture or malalignment. If patient CTs are unremarkable, will likely be appropriate for discharge if able to ambulate appropriately. Per radiology, no intracranial hemorrhage, skull fracture, cervical spine fracture or malalignment. On reassessment, patient is been able to ambulate without difficulty in the emergency department. Is felt that she is appropriate for discharge at this time. Return precautions given. All questions were answered. She demonstrated understanding and was agreement this plan. She was then discharged to the emergency department in stable condition. Critical Care <Efrain Smith MD - Last Filed: 12/03/24 15:06> Critical Care Time Critical Care Time: No
--- NOTE | 2024-12-03 13:34 | CT_ITS ---
FINAL REPORT TECHNIQUE: Axial images were obtained of the cervical spine by computed tomography. Coronal and sagittal reconstruction process performed. This study was performed with techniques to keep radiation doses as low as reasonably achievable (ALARA). Individualized dose reduction techniques using automated exposure control or adjustment of mA and/or kV according to the patient''s size were employed. CLINICAL HISTORY: fall FINDINGS: Cervical vertebrae show normal height. There is moderate disc space narrowing at C5-6 and C6-7. There is moderate anterior osteophyte formation throughout the mid and lower cervical spine. There is a broad-based midline disc protrusion at C5-6 with endplate hypertrophy at C5-6 and C6-7. Neuroforaminal narrowing is most evident on the right at C5-6. There is no malalignment. The facets are properly aligned. IMPRESSION: Degenerative changes and neuroforaminal narrowing without acute abnormality. Reviewed, Interpreted and Dictated by Everett Nails MD Transcribed by Soraya Silva Authenticated and [facility]
[2024-12-03] MEDS: ACETAMINOPHEN 500MG TAB 1000 MG PO (14:08)
[2024-12-03] MEDS: METHOCARBAMOL 500MG TABLET 1000 MG PO (14:08)
[2024-12-03 14:10] VITALS: O2SAT 96
--- NOTE | 2024-12-03 15:30 | PC.NURSE ---
Ambulated patient in hallway, patient was able to ambulate independently. Patient reports no pain while ambulating.
[2024-12-03 16:26] VITALS: BP 148/84; PULSE 88; RESP 18; TEMP 37.1; O2SAT 99
== END 2024-12-03 16:32 | disposition home or self-care (01) ==
PROVIDERS: Emergency Provider Student in an Organized Health Care Education/Training Program; PCP Nurse Practitioner Family
DX: S09.90XA Unspecified injury of head, initial encounter (principal); M25.511 Pain in right shoulder; M25.521 Pain in right elbow; W01.198A Fall on same level from slipping, tripping and stumbling with subsequent striking against other object, initial encounter
CPT/HCPCS: 70450; 72125; 73030; 73080; 73110; 73562; 99284; 99285

== ENCOUNTER 2024-12-19 09:30 | Outpatient (CLI) | payer MEDICARE, SELFPAY ==
--- OUTSIDE RECORDS SUMMARY | 2024-12-19 09:32 | XMS_ITS | Encounter Summary ---
Author Organization [employer] ([place], [place], [place], [place]) Address [address] [place] [address] Care Team Providers Care Kettle Firer Name Role Phone Unavailable Primary Care Provider Unavailabl e Encounter Details Date Type Department Care Team (Late st Contact Info) Description 04/26/2019 Transcribed Document [facility] Radiology [address] [place] [address] ProviderLuciano MD Social History Tobacco [...] - [facility] Aiyana ProviderMD - 04/26/2019 6:00 AM [...]
--- OUTSIDE RECORDS SUMMARY | 2024-12-19 09:32 | XMS_ITS | Encounter Summary ---
Author Organization [employer] ([place], [place], [place], [place]) Address [address] [place] [address] Care Team Providers Care School Guard Name Role Phone Unavailable Primary Care Provider Unavailabl e Encounter Details Date Type Department Care Team (Late st Contact Info) Description 04/27/2019 Transcribed Document [facility] Neurology - [address] [facility] [address] [place] [address] Meliza Downs Jr., MD [address] [place] [address] [address] [place] [address] Social History Tobacco Use Types Packs/Day Years [...]
--- OUTSIDE RECORDS SUMMARY | 2024-12-19 09:32 | XMS_ITS | Encounter Summary ---
Author Organization [employer] ([place], [place], [place], [place]) Address [address] [place] [address] Care Team Providers Care [place] Laborer Name Role Phone Unavailable Primary Care Provider Unavailabl e Encounter Details Date Type Department Care Team (Late st Contact Info) Description 04/26/2019 Transcribed Document [facility] Radiology [address] [place] [address] ProviderLuciano MD Social History Tobacco Use Types Packs/Day Years Used Date Smoking Tobacco: Never Assessed Comments Unknown Sex and Gender Information Value Date Recorded Sex Assigned at Not on file Legal Sex Female 6:01 PM CDT Gender Identity Not on file Sexual Orientation Not on file documented as of this encounter Miscellaneous Notes * Cerner Conversion Note - [facility] Aiyana ProviderMD - 04/26/2019 3:00 AM EST [employer] Manager Details Entered On: 04/26/2019 0:18 EST Performed [...]
--- OUTSIDE RECORDS SUMMARY | 2024-12-19 09:32 | XMS_ITS | Encounter Summary ---
Author Organization [employer] ([place], [place], [place], [place]) Address [address] [place] [address] Care Team Providers Care Herb Doctor Name Role Phone Unavailable Primary Care Provider Unavailabl e Encounter Details Date Type Department Care Team (Late st Contact Info) Description 05/01/2019 Transcribed Document [facility] Radiology [address] [place] [address] Provider, Luciano Bronson MD Social [...] [facility] Aiyana ProviderMD - 05/01/2019 12:50 PM EST [...] YOANNA GUERRERO, PT - 05/01/2019 11:50 EST Ell Teacher Goals Mobility/Bed Mobility LTG PT Grid Goal [...]
--- OUTSIDE RECORDS SUMMARY | 2024-12-19 09:32 | XMS_ITS | Encounter Summary ---
Author Organization [employer] ([place], [place], [place], [place]) Address [address] [place] [address] Care Team Providers Care Fruit Bar Maker Name Role Phone Unavailable Primary Care Provider Unavailabl e Encounter Details Date Type Department Care Team (Late st Contact Info) Description 05/01/2019 Transcribed Document [facility] [address] [facility] [address] [place] [address] Lane Ortiz Jr., MD [address] [place] [address] [address] [place] [address] Social History Tobacco Use Types Packs/Day Years [...] 100 mg= 2 Cap, Oral, TID Metamucil Hinds Smooth Texture Sugar Free, 1 Packet, Oral, [...] Lymph # 1.90 x10(3)/uL 05/01/2019 03:10 EST [place] % 7.5 % 05/01/2019 03:10 EST [place] # 0.62 K/uL 05/01/2019 03:10 EST [employer] [...]
--- OUTSIDE RECORDS SUMMARY | 2024-12-19 09:32 | XMS_ITS | Encounter Summary ---
Author Organization [employer] ([place], [place], [place], [place]) Address [address] [place] [address] Care Team Providers Care Embedded Nurse Name Role Phone Unavailable Primary Care Provider Unavailabl e Encounter Details Date Type Department Care Team (Late st Contact Info) Description 04/26/2019 Transcribed Document [facility] Radiology [address] [place] [address] Provider, Luciano Bronson MD Social History Tobacco Use Types Packs/Day Years Used Date Smoking Tobacco: Never Assessed Comments Unknown Sex and Gender Information Value Date Recorded Sex Assigned at Not on file Legal Sex Female 6:01 PM CDT Gender Identity Not on file Sexual Orientation Not on file documented as of this encounter Miscellaneous Notes * Cerner Conversion Note - [facility] Aiyana ProviderMD - 04/26/2019 2:11 PM EST UM Authorization Entered On: 04/26/2019 13:11 EST Performed On: 04/26/2019 13:11 EST by BULMARO DUONG RN-Utilization Review Primary Insurance Authorization Authorization and Policy Numbers : Insurance 1 Health Plan: [employer] MED[employer] REPL Policy Number: [id number] Authorization Number: [id number] Insurance Primary Name : Mariela [id number] Authorization Status-Primary : Awaiting callback Authorization Number-Primary : [id number] Authorized Service Begin Date-Primary : 04/25/2019 EST Authorization Comments-Primary : clinicals faxed via [employer] for cont stay (only 1 day approved) Historical Authorization Comments-Primary : Comment 1: per [facility] inpt approved 1 day auth# [id number] (FRANCY MILIAN, Corrosion Engineer 04/24/2019 13:26) BULMARO DUONG, RN-Utilization Review - 04/26/2019 13:11 EST Electronically signed by Carito, [facility] Conversion Senior Net C Developer Cerner at 08/23/2022 11:19 AM CDT documented in this encounter Plan of Treatment Not on file documented as of this encounter Visit Diagnoses Not on filedocumented in this encounter
--- OUTSIDE RECORDS SUMMARY | 2024-12-19 09:32 | XMS_ITS | Encounter Summary ---
Author Organization [employer] ([place], [place], [place], [place]) Address [address] [place] [address] Care Team Providers Care Restaurant Lead Name Role Phone Unavailable Primary Care Provider Unavailabl e Encounter Details Date Type Department Care Team (Late st Contact Info) Description 04/26/2019 Transcribed Document [facility] Radiology 1 [place] [address] ProviderLuciano MD Social History [...] - [facility] Aiyana ProviderMD - 04/26/2019 8:56 AM EST UM Authorization Entered On: 04/26/2019 7:57 EST Performed On: 04/26/2019 7:56 EST by BULMARO DUONG RN-Utilization Review Primary Insurance Authorization Authorization and Policy Numbers : Insurance 1 Health Plan: A[employer] MEDICARE REPL Policy Number: [id number] Authorization Number: [id number] Insurance Primary Name : Mariela [id number] Authorization Status-Primary : Admit approved Authorization Number-Primary : [id number] Authorized Service Begin Date-Primary : 04/25/2019 EST Historical Authorization Comments-Primary : Comment 1: per STAR inpt approved 1 day auth# [id number] (FRANCY MILIAN, Water Filtration Technician 04/24/2019 13:26) BULMARO DUONG RN-Utilization Review - 04/26/2019 7:56 EST documented in this encounter Plan of Treatment Not on file documented as of this encounter Visit Diagnoses Not on filedocumented in this encounter
--- OUTSIDE RECORDS SUMMARY | 2024-12-19 09:32 | XMS_ITS | Encounter Summary ---
Author Organization [employer] ([place], [place], [place], [place]) Address [address] [place] [address] Care Team Providers Care Dance Therapist Name Role Phone Unavailable Primary Care Provider Unavailabl e Encounter Details Date Type Department Care Team (Late st Contact Info) Description 04/30/2019 Transcribed Document [facility] Radiology 1 [place] [address] Karina Murphy MD [address] [place] [address] Social History Tobacco Use Types Packs/Day [...] incentive spirometer. says trying to go to [facility] HPI: 63 y/o WF admitted s/p [...] Results (Current Encounter/Past 24 Hours) Bun/Creatinine 32.0 W[place] 04/30/2019 05:35 Creatinine Level 0.50 mg/dL LOW 04/30/2019 05:35 eGFR NonAfrican >60 mL/min/1.73m2 04/30/2019 05:35 eGFR >60 mL/min/1.73m2 04/30/2019 05:35 Sodium Level 138 mmol/L 04/30/2019 05:35 Potassium Level 3.4 mmol/L LOW 04/30/2019 05:35 Chloride Level 107 mmol/L 04/30/2019 05:35 Carbon Dioxide Level 27 mmol/L 04/30/2019 05:35 Anion Gap 7 LOW 04/30/2019 05:35 Blood Urea Nitrogen 16 mg/dL 04/30/2019 05:35 Glucose Level 146 mg/dL [place] 04/30/2019 05:35 Calcium Level 8.9 mg/dL 04/30/2019 05:35 Coagulation Results (Current Encounter/Past 24 Hours) No Coagulation Results Found (Past 24 Hours) Creatinine Clearance (Current Encounter/Past 24 Hours) Creatinine Level 0.50 mg/dL LOW 04/30/2019 05:35 Bun/Creatinine 32.0 WV 04/30/2019 05:35 Estimated Creatinine Clearance 92.27 mL/Min [...]
--- OUTSIDE RECORDS SUMMARY | 2024-12-19 09:32 | XMS_ITS | Encounter Summary ---
[facility] Address [address] [place] [address] Care Team Providers Care Client Coordinator Name Role Phone Danelle Lennon APRN Primary Care Provider [phone] Encounter Details Date Type Department Care Team (Late st Contact Info) Description 06/18/2024 Results Follow-Up [facility] ENDOCRINOLOGY [address] [address] Bridget Valdez PA-C [address] [address] Social History Tobacco Use Types Packs/Day Years [...] documented as of this encounter Care Teams Client Coordinator Relationship Specialty Start Date End Date Danelle Lennon APRN [address] [place] [address] PCP - General Internal Medicine 06/18/24 documented as of this encounter
--- OUTSIDE RECORDS SUMMARY | 2024-12-19 09:32 | XMS_ITS | Encounter Summary ---
Author Organization [employer] ([place], [place], [place], [place]) Address [address] [place] [address] Care Team Providers Care Director Property Name Role Phone Unavailable Primary Care Provider Unavailabl e Encounter Details Date Type Department Care Team (Late st Contact Info) Description 04/27/2019 Transcribed Document [facility] 1 [place] [address] ProviderLuciano MD Social History Tobacco [...] - [facility] Aiyana ProviderMD - 04/27/2019 6:51 AM EST Height and Weight, Routine Entered On: 04/27/2019 5:52 EST Performed On: 04/27/2019 5:51 EST by Prisca Stephenson Patient Electric Refrigerator Servicer Height and Weight, Routine Routine Weight Source : Bed scale Routine Weight Entry Format : Metric Routine Weight, Kilograms : 86.5 kg(Converted to: 190 lb 11 oz) Routine Weight Calculation : 86.5 kg Height Source : Measured Height Entry Format : [place] Height, Feet : 5 ft Height, Inches : 2 Inch Clinical Height : 157.48 cm Body Surface Area (BSA), Routine : 1.87 m2 Body Mass Index (BMI), Routine : 34.88 kg/m2 Prisca Stephenson Patient Electric Refrigerator Servicer - 04/27/2019 5:51 EST documented in this encounter Plan of Treatment Not on file documented as of this encounter Visit Diagnoses Not on filedocumented in this encounter
--- OUTSIDE RECORDS SUMMARY | 2024-12-19 09:32 | XMS_ITS | Encounter Summary ---
[facility] Organization [facility] Address [address] [place] [address] Care Team Providers Care Fire Alarm Dispatcher Name Role Phone Danelle Lennon APRN Primary Care Provider [phone] Encounter Details Date Type Department Care Team (Late st Contact Info) Description 06/20/2024 Results Follow-Up [facility] ENDOCR[facility]OLOG[facility] [address] Ad Mazariegos MD [address] [place], [place] [address] [address] Social History Tobacco Use Types Packs/Day Years [...] documented as of this encounter Care Teams Fire Alarm Dispatcher Relationship Specialty Start Date End Date Danelle Lennon APRN [address] [address] [place] [address] PCP - General Internal Medicine 06/18/24 documented as of this encounter
--- OUTSIDE RECORDS SUMMARY | 2024-12-19 09:32 | XMS_ITS | Encounter Summary ---
Author Organization [employer] ([place], [place], [place], [place]) Address [address] [place] [address] Care Team Providers Care Mill Dresser Name Role Phone Unavailable Primary Care Provider Unavailabl e Encounter Details Date Type Department Care Team (Late st Contact Info) Description 04/30/2019 Transcribed Document [facility] [address] [facility] [address] [place] [address] Meliza Downs Jr., MD [address] [place] [address] [address] [place] [address] Social History Tobacco Use Types Packs/Day Years [...]
--- OUTSIDE RECORDS SUMMARY | 2024-12-19 09:32 | XMS_ITS | Encounter Summary ---
Author Organization [employer] ([place], [place], [place], [place]) Address [address] [place] [address] Care Team Providers Care Photographic Lithographer Name Role Phone Unavailable Primary Care Provider Unavailabl e Encounter Details Date Type Department Care Team (Late st Contact Info) Description 04/27/2019 Transcribed Document [facility] Radiology 1 [place] [address] Provider yvon Bronson MD Social [...] Cerner Conversion Note - [facility] Historical ProviderMD - 04/27/2019 6:00 PM EST Chart Check - Review Order Profile Entered On: 04/27/2019 18:57 EST Performed On: 04/27/2019 17:00 EST by SHAWNA WISE RN Chart Check Powerplans Initiated/Discontinued as Appropriate : Yes All Active Orders Reviewed : Yes SHAWNA WISE RN - 04/27/2019 18:57 EST Electronically signed by Carito [facility] Conversion Crib Clerk Cerner at 08/23/2022 11:19 AM CDT documented in this encounter Plan of Treatment Not on file documented as of this encounter Visit Diagnoses Not on filedocumented in this encounter
--- OUTSIDE RECORDS SUMMARY | 2024-12-19 09:32 | XMS_ITS | Encounter Summary ---
Author Organization [employer] ([place], [place], [place], [place]) Address [address] [place] [address] Care Team Providers Care Supply Chain Program Manager Name Role Phone Unavailable Primary Care Provider Unavailabl e Encounter Details Date Type Department Care Team (Late st Contact Info) Description 05/01/2019 Transcribed Document [facility] Radiology 1 [place] [address] Karina Murphy MD [address] [place] [address] Social History Tobacco Use Types Packs/Day [...] 5 dayas before bladder training. Plan is [facility] placement today. No f'/c/s. No [...] Results (Current Encounter/Past 24 Hours) Bun/Creatinine 36.0 SD 05/01/2019 05:26 Creatinine Level 0.50 mg/dL LOW 05/01/2019 05:26 eGFR NonAfrican >60 mL/min/1.73m2 05/01/2019 05:26 eGFR >60 mL/min/1.73m2 05/01/2019 05:26 Sodium Level 137 mmol/L 05/01/2019 05:26 Potassium Level 3.7 mmol/L 05/01/2019 05:26 Chloride Level 105 mmol/L 05/01/2019 05:26 Carbon Dioxide Level 28 mmol/L 05/01/2019 05:26 Anion Gap 8 LOW 05/01/2019 05:26 Blood Urea Nitrogen 18 mg/dL 05/01/2019 05:26 Glucose Level 152 mg/dL [place] 05/01/2019 05:26 Calcium Level 9.1 mg/dL 05/01/2019 05:26 Magnesium Level 2.3 mg/dL 04/30/2019 10:53 Coagulation Results (Current Encounter/Past 24 Hours) No Coagulation Results Found (Past 24 Hours) Creatinine Clearance (Current Encounter/Past 24 Hours) Creatinine Level 0.50 mg/dL [facility] 05/01/2019 05:26 Bun/Creatinine 36.0 SD 05/01/2019 05:26 Labs Most Recent Last 28 [...] to atelectasis hypokalemia- improved post replacement. PLAN [facility] transfer today No further Potassium [...]
--- OUTSIDE RECORDS SUMMARY | 2024-12-19 09:32 | XMS_ITS | Encounter Summary ---
Author Organization [employer] ([place], [place], [place], [place]) Address [address] [place] [address] Care Team Providers Care Software Test And Validation Engineer Name Role Phone Unavailable Primary Care Provider Unavailabl e Encounter Details Date Type Department Care Team (Late st Contact Info) Description 04/27/2019 Transcribed Document [facility] Radiology 1 [place] [address] Alverto Murphy MD [facility] [address] [address] Social History Tobacco Use Types [...]
--- OUTSIDE RECORDS SUMMARY | 2024-12-19 09:32 | XMS_ITS | Referral Summary ---
Author Organization [employer] [facility] ([place], [place], [place], [place]) Address [address] [place] [address] Care Team Providers Care Linen Manager Name Role Phone Unavailable Primary Care [...]
--- OUTSIDE RECORDS SUMMARY | 2024-12-19 09:32 | XMS_ITS | Encounter Summary ---
Author Organization [employer] ([place], [place], [place], [place]) Address [address] [place] [address] Care Team Providers Care Registration Coordinator Name Role Phone Unavailable Primary Care Provider Unavailabl e Encounter Details Date Type Department Care Team (Late st Contact Info) Description 04/30/2019 Transcribed Document [facility] [address] [facility] 200 [place] [address] Lane Ortiz Jr., MD [address] [place] [address] 200 [place] [address] Social History Tobacco Use Types Packs/Day Years [...] 100 mg= 2 Cap, Oral, TID Metamucil [place] Smooth Texture Sugar Free, 1 Packet, Oral, [...] Lymph # 1.50 x10(3)/uL 04/29/2019 09:11 EST [place] % 7.0 % 04/30/2019 03:51 EST [place] % 7.8 % 04/29/2019 09:11 EST [place] # 0.59 K/uL 04/30/2019 03:51 EST [place] # 0.71 K/uL 04/29/2019 09:11 EST Eos [...]
--- OUTSIDE RECORDS SUMMARY | 2024-12-19 09:32 | XMS_ITS | Encounter Summary ---
Author Organization [employer] ([place], [place], [place], [place]) Address [address] [place] [address] Care Team Providers Care Consulting Services Project Manager Name Role Phone Unavailable Primary Care Provider Unavailabl e Encounter Details Date Type Department Care Team (Late st Contact Info) Description 04/15/2019 Transcribed Document [facility] Radiology 1 [place] [address] Provider, Luciano Bronson MD Social History Tobacco Use Types Packs/Day Years Used Date Smoking Tobacco: Never Assessed Comments Unknown Sex and Gender Information Value Date Recorded Sex Assigned at Not on file Legal Sex Female 6:01 PM CDT Gender Identity Not on file Sexual Orientation Not on file documented as of this encounter Miscellaneous Notes * Cerner Conversion Note - [facility] Aiyana ProviderMD - 04/15/2019 10:16 [...] Source : Measured Height Entry Format : [place] Height, Feet : 5 ft(Converted to: 152 cm, 60 Inch) Height, Inches : 2 Inch(Converted to: 0 ft 2 Inch, 5.08 cm) Clinical Height : 157.48 cm Weight Source : Standing scale Weight Entry Format : [place] Clinical Dosing Weight : 82.14 kg Weight, Pounds : 180.7 lb Body Surface Area (BSA) : 1.83 m2 Body Mass Index : 33.1 kg/m2 (HI) [place] Body Weight : 50 kg TIA SHARMA [...] TIA SHARMA RN - 04/15/2019 9:16 EST Sharp Suicide Severity Rating Scale (C-SSRS) CSSRS Past [...] #2 Relationship : daughter Primary Language : Greenlandic Preferred Communication Mode : Verbal Communication Barrier [...] 04/15/2019 9:16 EST Electronically signed by Carito [facility] Conversion Striker Out Cerner at 08/23/2022 11:18 AM CDT documented in this encounter Plan of Treatment Not on file documented as of this encounter Visit Diagnoses Not on filedocumented in this encounter
--- OUTSIDE RECORDS SUMMARY | 2024-12-19 09:32 | XMS_ITS | Encounter Summary ---
Author Organization [employer] ([place], [place], [place], [place]) Address [address] [place] [address] Care Team Providers Care Professor Of Radiology Name Role Phone Unavailable Primary Care Provider Unavailabl e Encounter Details Date Type Department Care Team (Late st Contact Info) Description 04/27/2019 Transcribed Document [facility] Radiology 1 [place] [address] ProviderLuciano MD Social History Tobacco [...] Conversion Note - [facility] Historical ProviderMD - 04/27/2019 3:00 AM EST Unstacker Details Entered On: 04/27/2019 0:30 EST Performed [...]
--- OUTSIDE RECORDS SUMMARY | 2024-12-19 09:32 | XMS_ITS | Encounter Summary ---
Author Organization [employer] ([place], [place], [place], [place]) Address [address] [place] [address] Care Team Providers Care Waistline Joiner Overlock Name Role Phone Unavailable Primary Care Provider Unavailabl e Encounter Details Date Type Department Care Team (Late st Contact Info) Description 04/26/2019 Transcribed Document [facility] Radiology 1 [place] [address] Provider, Luciano Bronson MD Social [...] - [facility] Aiyana ProviderMD - 04/26/2019 3:20 [...] LUCIEN JAUN, OTR/L - 05/02/2019 15:28 EST Registered Nurse Ambulatory Goals, OT Grooming LTG Grid Goal #1 [...] : pt to EOB supervision with leg purchasing and fiscal clerk. Sat unsupported. Given AE for LB dressing educated and demonstrated understanding. Pt educated on bathroom transfers, shower transfers, car transfers, toileting hygiene. Given tongs for toileting. Dicussed use of home bidet. Pt supervision to supine with leg purchasing and fiscal clerk. Assessment : pt has good understanding of transfer safety and education given. to dc home Needs HH OT. Plan for Treatment : see poc JAUN MCGRAW OTR/Ofelia - 05/02/2019 15:28 EST Pain Assessment Pain Scaled Used : 0-10 Pain scale Pain Score During-Intervention : 0 JAUN MCGRAW OTR/Ofleia - 05/02/2019 15:28 EST Image 1 - [...]
--- OUTSIDE RECORDS SUMMARY | 2024-12-19 09:32 | XMS_ITS | Encounter Summary ---
[facility] Address [address] [place] [address] Care Team Providers Care Natural Gas Inspector Name Role Phone Danelle Lennon APRN Primary Care Provider [phone] Reason for Visit * Reason Comments Med Refill Encounter Details Date Type Department Care Team (Late st Contact Info) Description 02/17/2023 Refill [facility] FAMILY MEDICINE [address] [place] [address] Alex Davis MD [address] [place] [address] Postlaminectomy syndrome of lumbar region; [...] myelopathy documented in this encounter Care Teams Natural Gas Inspector Relationship Specialty Start Date End Date Danelle Lennon APRN [address] [place] [address] [place] [address] PCP - General Internal Medicine 06/18/24 documented as of this encounter
--- OUTSIDE RECORDS SUMMARY | 2024-12-19 09:32 | XMS_ITS | Encounter Summary ---
Author Organization [employer] ([place], [place], [place], [place]) Address [address] [place] [address] Care Team Providers Care Drum Printer Name Role Phone Unavailable Primary Care Provider Unavailabl e Encounter Details Date Type Department Care Team (Late st Contact Info) Description 04/30/2019 Transcribed Document [facility] Radiology 1 [place] [address] Provider, Luciano Bronson MD Social [...] [facility] Aiyana ProviderMD - 04/30/2019 8:06 AM EST UM Authorization Entered On: 04/30/2019 7:07 EST Performed On: 04/30/2019 7:06 EST by Dayna Rios, Stockroom Helper Primary Insurance Authorization Authorization and Policy Numbers : Insurance 1 Health Plan: A[employer]NA MEDICARE REPL Policy Number: [id number] Authorization Number: [id number] Insurance Primary Name : Tanya [id number] Authorization Status-Primary : Admit approved Authorization Number-Primary : [id number] Number of Days Authorized-Primary : 5 Day(s) [...] with tanya requesting clinical be faxed to [phone]. clinical faxed per cerner (Gali Newman, Rn-Utilization Review 04/28/2019 15:17) Comment 3: lvm with brigette lui with tanya for c/s . acb (Gali Newman, Rn-Utilization Review 04/28/2019 13:51) Comment 4: clinicals faxed via cerner for cont stay (only 1 day approved) (BULMARO DUONG, RN-Utilization Review 04/26/2019 13:11) Comment 5: per STAR inpt approved 1 day auth# [id number] (FRANCY MILIAN, Special Education Teaching Assistant 04/24/2019 13:26) Dayna Rios, Stockroom Helper - 04/30/2019 7:06 EST documented in this encounter Plan of Treatment Not on file documented as of this encounter Visit Diagnoses Not on filedocumented in this encounter
--- OUTSIDE RECORDS SUMMARY | 2024-12-19 09:33 | XMS_ITS | Encounter Summary ---
Author Organization [employer] ([place], [place], [place], [place]) Address [address] [place] [address] Care Team Providers Care Refrigerator Crater Name Role Phone Unavailable Primary Care Provider Unavailabl e Encounter Details Date Type Department Care Team (Late st Contact Info) Description 04/28/2019 Transcribed Document [facility] [address] [facility] [address] [place] [address] Meliza Downs Jr., MD [address] [place] [address] [address] [place] [id number] Social History Tobacco Use Types Packs/Day Years Used Date Smoking Tobacco: Never Assessed Comments Unknown Sex and Gender Information Value Date Recorded Sex Assigned at Not on file Legal Sex Female 6:01 PM CDT Gender Identity Not on file Sexual Orientation Not on file documented as of this encounter Miscellaneous Notes * Cerner Conversion Note - Meliza oDwns Jr., MD - 04/28/2019 5:37 PM EST [...] for a while. family [place] rehab near [place]. i dw case managemenrt. documented in this encounter Plan of Treatment Not on file documented as of this encounter Visit Diagnoses Not on filedocumented in this encounter
--- OUTSIDE RECORDS SUMMARY | 2024-12-19 09:33 | XMS_ITS | Encounter Summary ---
Author Organization [employer] ([place], [place], [place], [place]) Address [address] [place] [address] Care Team Providers Care Atmospheric Physics Professor Name Role Phone Unavailable Primary Care Provider Unavailabl e Encounter Details Date Type Department Care Team (Late st Contact Info) Description 04/24/2019 Transcribed Document [facility] 1 [place] [address] ProviderLuciano MD Social History Tobacco [...] [facility] Aiyana ProviderMD - 04/24/2019 2:26 PM EST UM Authorization Entered On: 04/24/2019 13:27 EST Performed On: 04/24/2019 13:26 EST by FRANCY MILIAN Nuclear Reactor Engineer Primary Insurance Authorization Authorization and Policy Numbers : Insurance 1 Health Plan: AETNA MEDICARE REPL Policy Number: [id number] Authorization Number: [id number] Insurance Primary Name : Mariela [id number] Authorization Status-Primary : Admit approved Authorization Number-Primary : [id number] Authorized Service Begin Date-Primary : 04/25/2019 EST Authorization Comments-Primary : per STAR inpt approved 1 day auth# [id number] Historical Authorization Comments-Primary : No Authorization Comments Found FRANCY MILIAN, Nuclear Reactor Engineer - 04/24/2019 13:26 EST documented in this encounter Plan of Treatment Not on file documented as of this encounter Visit Diagnoses Not on filedocumented in this encounter
--- OUTSIDE RECORDS SUMMARY | 2024-12-19 09:33 | XMS_ITS | Encounter Summary ---
Author Organization [employer] ([place], [place], [place], [place]) Address [address] [place] [address] Care Team Providers Care Medical Sonographer Name Role Phone Unavailable Primary Care Provider Unavailabl e Encounter Details Date Type Department Care Team (Late st Contact Info) Description 05/05/2019 Transcribed Document [facility] Radiology 1 [place] [address] Provider, Luciano Bronson MD Social [...] - [facility] Aiyana ProviderMD - 05/05/2019 3:05 PM EST UM Authorization Entered On: 05/05/2019 14:05 EST Performed On: 05/05/2019 14:05 EST by Dayna Rios, Mail Distribution Clerk Primary Insurance Authorization Authorization and Policy Numbers : Insurance 1 Health Plan: AETNA MEDICARE REPL Policy Number: [id number] Authorization Number: [id number] Insurance Primary Name : Mariela [id number] Authorization Status-Primary : Admit approved Auth/Referral Contact Name-Primary : [place] Authorization Number-Primary : [id number] Number of Days Authorized-Primary : 8 Day(s) [...] on 05/01/2019. Tameka Davidson, RN. (Dayna Rios, Mail Distribution Clerk 04/30/2019 07:06) Comment 3: clinical faxed per cerner for 04/27 and 04/28 (Gali Newman, Rn-Utilization Review 04/28/2019 15:19) Comment 4: call back from tameka lui with [employer] requesting clinical be faxed to [phone]. clinical faxed per cerner (Gali Newman, Rn-Utilization Review 04/28/2019 15:17) Comment 5: lvm with brigette lui with [employer] for c/s . acb (Gali Newman, Rn-Utilization Review 04/28/2019 13:51) Comment 6: clinicals faxed via cerner for cont stay (only 1 day approved) (BULMARO DUONG, RN-Utilization Review 04/26/2019 13:11) Comment 7: per STAR inpt approved 1 day auth# [id number] (FRANCY MILIAN, Manager Sas 04/24/2019 13:26) Dayna Rios, Mail Distribution Clerk - 05/05/2019 14:05 EST Electronically signed by Carito [facility] Conversion Devulcanizer Loader Cerner at 08/23/2022 11:19 AM CDT documented in this encounter Plan of Treatment Not on file documented as of this encounter Visit Diagnoses Not on filedocumented in this encounter
--- OUTSIDE RECORDS SUMMARY | 2024-12-19 09:33 | XMS_ITS | Encounter Summary ---
Author Organization [employer] ([place], [place], [place], [place]) Address [address] [place] [address] Care Team Providers Care Refrigerated Company Driver Name Role Phone Unavailable Primary Care Provider Unavailabl e Encounter Details Date Type Department Care Team (Late st Contact Info) Description 04/25/2019 Transcribed Document [facility] Neurology - [facility] 10[address] [facility] [address] [place] [address] Lane Ortiz Jr., MD [address] [place] [address] [address] [place] [id number] Social History Tobacco Use Types Packs/Day Years [...] 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 CIVIL DIVISION COMMANDER DEPUTY SHERIFF: Melanie Emmanuel PA-C. ANESTHESIA: Total IV anesthesia. [...] root retraction, dural closure, and wound closure. /[id number] Lane Ortiz Jr, MD RDO/AQ / RDO / MODL /[id number] documented in this encounter Plan of Treatment Not on file documented as of this encounter Visit Diagnoses Not on filedocumented in this encounter
--- OUTSIDE RECORDS SUMMARY | 2024-12-19 09:33 | XMS_ITS | Encounter Summary ---
Author Organization [employer] ([place], [place], [place], [place]) Address [address] [place] [address] Care Team Providers Care Clay Artist Name Role Phone Unavailable Primary Care Provider Unavailabl e Encounter Details Date Type Department Care Team (Late st Contact Info) Description 04/28/2019 Transcribed Document [facility] Radiology [address] [place] [address] Provider, Luciano Bronson MD Social History Tobacco Use Types Packs/Day Years Used Date Smoking Tobacco: Never Assessed Comments Unknown Sex and Gender Information Value Date Recorded Sex Assigned at Not on file Legal Sex Female 6:01 PM CDT Gender Identity Not on file Sexual Orientation Not on file documented as of this encounter Miscellaneous Notes * Cerner Conversion Note - [facility] Aiyana ProviderMD - 04/28/2019 2:49 PM EST UM Authorization Entered On: 04/28/2019 13:49 EST Performed On: 04/28/2019 13:49 EST by Gali Newman Rn-Utilization Review Primary Insurance Authorization Authorization and Policy Numbers : Insurance 1 Health Plan: AETNA MEDICARE REPL Policy Number: [id number] Authorization Number: [id number] Insurance [facility] [id number] Authorization Status-Primary : Awaiting callback Authorization Number-Primary : [id number] Authorized Service Begin Date-Primary : 04/25/2019 EST Historical Authorization Comments-Primary : Comment 1: clinicals faxed via [employer] for cont stay (only 1 day approved) (BULMARO DUONG, RN-Utilization Review 04/26/2019 13:11) Comment 2: per [facility] inpt approved 1 day auth# [id number] (FRANCY MILIAN, Sap Portal Developer 04/24/2019 13:26) Gali Newman Rn-Utilization Review - 04/28/2019 13:49 EST Electronically signed by Carito, [facility] Conversion Brand Strategy Manager Cerner at 08/23/2022 11:19 AM CDT documented in this encounter Plan of Treatment Not on file documented as of this encounter Visit Diagnoses Not on filedocumented in this encounter
--- OUTSIDE RECORDS SUMMARY | 2024-12-19 09:33 | XMS_ITS | Encounter Summary ---
Author Organization [employer] ([place], [place], [place], [place]) Address [address] [place] [address] Care Team Providers Care Nurse Practitioner Adult Name Role Phone Unavailable Primary Care Provider Unavailabl e Encounter Details Date Type Department Care Team (Late st Contact Info) Description 04/25/[address] [facility] Radiology 1 [place] [address] Provider, Luciano Bronson MD Social [...] - [facility] Aiyana ProviderMD - 04/25/2019 6:44 PM [...] AGUILA DANIELS, PT - 04/26/2019 13:19 EST Paperback Machine Operator Goals Mobility/Bed Mobility LTG PT Grid [...] AGUILA DANIELS, PT - 04/26/2019 13:19 EST [place] PT Charges PT Eval Low Complexity : 1 AGUILA DANIELS, PT - 04/26/2019 13:19 EST Electronically signed by Carito [facility] Conversion Windmill Technician Cerner at 08/23/2022 11:19 AM CDT documented in this encounter Plan of Treatment Not on file documented as of this encounter Visit Diagnoses Not on filedocumented in this encounter
--- OUTSIDE RECORDS SUMMARY | 2024-12-19 09:33 | XMS_ITS | Encounter Summary ---
Author Organization [employer] ([place], [place], [place], [place]) Address [address] [place] [address] Care Team Providers Care Safety Instructor Name Role Phone Unavailable Primary Care Provider Unavailabl e Encounter Details Date Type Department Care Team (Late st Contact Info) Description 04/25/2019 Transcribed Document [facility] Neurology - [facility] [address] [facility] [address] [place] [address] Meliza Downs Jr., MD [address] [place] [address] [address] [place] [address] Social History Tobacco Use Types Packs/Day Years [...]
--- OUTSIDE RECORDS SUMMARY | 2024-12-19 09:33 | XMS_ITS | Encounter Summary ---
Author Organization [employer] ([place], [place], [place], [place]) Address [address] [place] [address] Care Team Providers Care Licensed Practical Nurse Instructor Name Role Phone Unavailable Primary Care Provider Unavailabl e Encounter Details Date Type Department Care Team (Late st Contact Info) Description 04/25/2019 Transcribed Document [facility] Radiology 1 [place] [address] Provider, Luciano Bronson MD Social History Tobacco Use Types Packs/Day Years Used Date Smoking Tobacco: Never Assessed Comments Unknown Sex and Gender Information Value Date Recorded Sex Assigned at Not on file Legal Sex Female 6:01 PM CDT Gender Identity Not on file Sexual Orientation Not on file documented as of this encounter Miscellaneous Notes * Cerner Conversion Note - [facility] Aiyana ProviderMD - 04/25/2019 6:45 PM EST [...]
--- OUTSIDE RECORDS SUMMARY | 2024-12-19 09:33 | XMS_ITS | Encounter Summary ---
Author Organization [employer] ([place], [place], [place], [place]) Address [address] [place] [address] Care Team Providers Care Roof Designer Name Role Phone Unavailable Primary Care Provider Unavailabl e Encounter Details Date Type Department Care Team (Late st Contact Info) Description 04/23/2019 Transcribed Document [facility] Radiology [address] [place] [address] ProviderLuciano MD Social History Tobacco [...] activities are safe for you. ??? Take ahbc-dca-ekzxbat and prescription medicines only as told by [...] 06/25/2001 Document Revised: 11/02/2017 Document Reviewed: 11/02/2017 [employer] Interactive Patient Education ? 2019 [employer]. Magnetic Resonance Imaging Magnetic resonance imaging (MRI) [...] including vitamins, herbs, eye drops, creams, and ygbt-nzm-ehmfwee medicines. What are the risks? Generally, MRI [...] 05/14/2014 Elsevier Interactive Patient Education ? 2017 [employer] documented in this encounter Plan of Treatment Not on file documented as of this encounter Visit Diagnoses Not on filedocumented in this encounter
--- OUTSIDE RECORDS SUMMARY | 2024-12-19 09:33 | XMS_ITS | Encounter Summary ---
Author Organization [employer] ([place], [place], [place], [place]) Address [address] [place] [address] Care Team Providers Care Viscosity Worker Name Role Phone Unavailable Primary Care Provider Unavailabl e Encounter Details Date Type Department Care Team (Late st Contact Info) Description 04/25/2019 Transcribed Document [facility] Radiology [address] [place] [address] Provider, Luciano Bronson MD Social [...] [facility] Aiyana ProviderMD - 04/25/2019 7:38 AM EST [...] mom Support Person/Pt Rep Contact Information : [phone] Want Family/Rep/Phys Notified of Admit : No Emergency Contact #1 : Baysideamanda Gonzalez Emergency Contact #1 cell Emergency Contact #1 Relationship : Emergency Contact #2 : Kandi Burt Emergency Contact #2 cell Emergency Contact #2 Relationship : daughter Primary Language : Djiboutian Preferred Communication Mode : Verbal Communication Barrier [...] Scale Risk Level : 25-45 Medium Risk Driscoll Fall Interventions : Adequate lighting, Assistive devices [...] Source : Measured Height Entry Format : [place] Height, Feet : 5 ft(Converted to: 152 cm, 60 Inch) Height, Inches : 2 Inch(Converted to: 0 ft 2 Inch, 5.08 cm) Clinical Height : 157.48 cm Weight Source : Standing scale Weight Entry Format : [place] Clinical Dosing Weight : 82.14 kg Weight, Pounds : 180.7 lb Body Surface Area (BSA) : 1.83 m2 Body Mass Index : 33.1 kg/m2 (HI) [place] Body Weight : 50 kg Daniela Buckner [...] Daniela Buckner RN - 04/25/2019 19:52 EST [place] Suicide Severity Rating Scale (C-SSRS) CSSRS Past [...] EST Electronically signed by Luciano Arzate Conversion Senior Clinical Research Scientist Cerner at 08/23/2022 11:19 AM CDT documented in this encounter Plan of Treatment Not on file documented as of this encounter Visit Diagnoses Not on filedocumented in this encounter
--- OUTSIDE RECORDS SUMMARY | 2024-12-19 09:33 | XMS_ITS | Encounter Summary ---
Author Organization [employer] ([place], [place], [place], [place]) Address [address] [place] [address] Care Team Providers Care Echocardiography Radiology Technologist Name Role Phone Unavailable Primary Care Provider Unavailabl e Encounter Details Date Type Department Care Team (Late st Contact Info) Description 04/28/2019 Transcribed Document [facility] [address] [facility] [address] [place] [address] Lane Ortiz Jr., MD [address] [place] [address] [address] [place] [address] Social History Tobacco Use Types Packs/Day Years [...] for leak. Continue PT. Will need rehab. Wolf goodman. Medications alogliptin, 25 mg= 1 Tab, [...] 100 mg= 2 Cap, Oral, TID Metamucil [place] Smooth Texture Sugar Free, 1 Packet, Oral, [...] Lymph # 1.24 x10(3)/uL 04/28/2019 03:07 EST [place] % 9.2 % (High) 04/28/2019 03:07 EST [place] # 0.90 K/uL 04/28/2019 03:07 EST Eos [...] Appearance CLEAR2 04/28/2019 08:57 EST Urine Specific [place]ams >1.030 (High) 04/28/2019 08:57 EST Urine pH [...]
--- OUTSIDE RECORDS SUMMARY | 2024-12-19 09:33 | XMS_ITS | Encounter Summary ---
Author Organization [employer] ([place], [place], [place], [place]) Address [address] [place] [address] Care Team Providers Care Doubler Operator Name Role Phone Unavailable Primary Care Provider Unavailabl e Encounter Details Date Type Department Care Team (Late st Contact Info) Description 04/28/2019 Transcribed Document [facility] Radiology [address] [place] [address] Provider, Luciano Bronson MD Social [...] [facility] Aiyana ProviderMD - 04/28/2019 4:19 PM EST UM Authorization Entered On: 04/28/2019 15:20 EST Performed On: 04/28/2019 15:19 EST by Gali Newman Rn-Utilization Review Primary Insurance Authorization Authorization and Policy Numbers : Insurance 1 Health Plan: AETNA MEDICARE REPL Policy Number: [id number] Authorization Number: [id number] Insurance Primary Name : Mariela [id number] Authorization Status-Primary : Awaiting callback Authorization Number-Primary : [id number] Authorized Service Begin Date-Primary : 04/25/2019 EST Authorization Comments-Primary : clinical faxed per [facility] for 04/27 and 04/28 Historical Authorization Comments-Primary : Comment 1: call back from [employer] with kadeemdony requesting clinical be faxed to [phone]. clinical faxed per [facility] (Trent, Gali L, Rn-Utilization Review 04/28/2019 15:17) Comment 2: lvm with brigette rn with [employer] for c/s . acb (Gali Newman, Rn-Utilization Review 04/28/2019 13:51) Comment 3: clinicals faxed via the [facility] for cont stay (only 1 day approved) (BULMARO DUONG, RN-Utilization Review 04/26/2019 13:11) Comment 4: per [facility] inpt approved 1 day auth# [id number] (FRANCY MILIAN, Supervisor [employer] 04/24/2019 13:26) Gali Newman Rn-Utilization Review - 04/28/2019 15:19 EST documented in this encounter Plan of Treatment Not on file documented as of this encounter Visit Diagnoses Not on filedocumented in this encounter
--- OUTSIDE RECORDS SUMMARY | 2024-12-19 09:33 | XMS_ITS | Encounter Summary ---
Author Organization [employer] ([place], [place], [place], [place]) Address [address] [place] [address] Care Team Providers Care Adjunct Professor Of [place]. History Name Role Phone Unavailable Primary Care Provider Unavailabl e Encounter Details Date Type Department Care Team (Late st Contact Info) Description 04/29/2019 Transcribed Document [facility] Radiology [address] [place] [address] Provider, Luciano Bronson MD Social [...] [facility] Aiyana ProviderMD - 04/29/2019 4:24 PM EST On Going Discharge Planning Entered On: 04/29/2019 15:26 EST Performed On: 04/29/2019 15:24 EST by ROMELIA MCADAMS RN-Screen Printer HelperDry Kiln Burner Progress Note Discharge Arrangements : Patient Post-Acute [...] Meeting Medical Necessity : Yes ROMELIA MCADAMS RN-Screen Printer Helper - 04/29/2019 15:24 EST Narrative Progress Note Narrative Progress Note : Urology consulted for neurogenic bladder. Pt's choices of [facility] and [facility] are not in network with pt's payor source. D/W pt at bedside. She has chose [facility] now. Referral sent via [facility] and informed Colleene. Precert intitated for acute. CM will continue to follow. ROMELIA MCADAMS RN-Screen Printer Helper - 04/29/2019 15:24 EST Electronically signed by Carito [facility] Conversion Forest Supervisor Cerner at 08/23/2022 11:18 AM CDT documented in this encounter Plan of Treatment Not on file documented as of this encounter Visit Diagnoses Not on filedocumented in this encounter
--- OUTSIDE RECORDS SUMMARY | 2024-12-19 09:33 | XMS_ITS | Encounter Summary ---
Author Organization [employer] ([place], [place], [place], [place]) Address [address] [place] [address] Care Team Providers Care Range Master Name Role Phone Unavailable Primary Care Provider Unavailabl e Encounter Details Date Type Department Care Team (Late st Contact Info) Description 04/28/[address] [facility] Radiology [address] [place] [address] Provider, Luciano Bronson MD Social [...] [facility] Aiyana ProviderMD - 04/28/2019 10:32 AM EST UM Authorization Entered On: 04/28/2019 9:32 EST Performed On: 04/28/2019 9:32 EST by Gali Newman Rn-Utilization Review Primary Insurance Authorization Authorization and Policy Numbers : Insurance 1 Health Plan: AETNA MEDICARE REPL Policy Number: [id number] Authorization Number: [id number] Insurance Primary Name : Mariela [id number] Authorization Status-Primary : Awaiting callback Authorization Number-Primary : [id number] Authorized Service Begin Date-Primary : 04/25/2019 EST Historical Authorization Comments-Primary : Comment 1: clinicals faxed via [employer] for cont stay (only 1 day approved) (BULMARO DUONG, RN-Utilization Review 04/26/2019 13:11) Comment 2: per [facility] inpt approved 1 day auth# [id number] (FRANCY MILIAN, Stadium Attendant 04/24/2019 13:26) Gali Newman Rn-Utilization Review - 04/28/2019 9:32 EST Electronically signed by Carito, [facility] Conversion Plant Operator/Shift Supervisor Cerner at 08/23/2022 11:19 AM CDT documented in this encounter Plan of Treatment Not on file documented as of this encounter Visit Diagnoses Not on filedocumented in this encounter
--- OUTSIDE RECORDS SUMMARY | 2024-12-19 09:33 | XMS_ITS | Encounter Summary ---
Author Organization [employer] ([place], [place], [place], [place]) Address [address] [place] [address] Care Team Providers Care Tonguer Name Role Phone Unavailable Primary Care Provider Unavailabl e Encounter Details Date Type Department Care Team (Late st Contact Info) Description 05/02/2019 Transcribed Document [facility] Radiology [address] [place] [address] Provider, [facility] Aiyana Social History Tobacco Use Types Packs/Day Years Used Date Smoking Tobacco: Never Assessed Comments Unknown Sex and Gender Information Value Date Recorded Sex Assigned at Not on file Legal Sex Female 6:01 PM CDT Gender Identity Not on file Sexual Orientation Not on file documented as of this encounter Miscellaneous Notes * Cerner Conversion Note - [facility] Aiyana ProviderMD - 05/02/2019 4:44 PM EST [facility] [address] [place] [id number] GERTRUDIS DALY :1955 Visit Time:04/25/2019 Your Visit [...] Services: [facility]-- Medical Equipment for Home Use: [facility]--[phone] Diet after Discharge: Resume usual diet as [...] EST Where: [facility] [address] [place] [address]- Follow Up with MELIZA DOWNS When 05/22/2019 11:00 AM EST Comments See appointment card Where: [address] (SUNDAY ONLY) [place] [address]- Business (1) Follow Up with MELIZA DOWNS When 05/08/2019 01:00 PM EST Comments See appointment card Where: [address] (SUNDAY ONLY) [place] [address]- Business (1) Follow Up with [...] at home: Medicines ??? Take or apply beog-ujr-gnemrhz and prescription medicines only as told by [...] cannot use soap and water, use hand cardiac cath lab technologist. ? Change your bandage as told by [...] 12/26/2008 Document Revised: 08/24/2016 Document Reviewed: 09/06/2015 [employer] Interactive Patient Education ?? 2019 [employer] Inc. Laminectomy, Care After This sheet gives [...] and water are not available, use hand cardiac cath lab technologist. ? Change your dressing as told by [...] or a bad smell. Medicines ??? Take zzrm-bzl-ymttnue and prescription medicines only as told by [...] urine clear or pale yellow. ? Take rozu-zsc-krowvhe or prescription medicines. ? Eat foods that [...] 10/06/2005 Document Revised: 11/02/2016 Document Reviewed: 09/03/2016 [employer] Interactive Patient Education ?? 2019 [employer]. cyclobenzaprine (demetria young) Amrix, Comfort Pac with [...] may report side effects to FDA at 8-798-XQU-1856. What other drugs will affect cyclobenzaprine? Using [...] drugs may affect cyclobenzaprine, including prescription and masx-mgd-lxeecpb medicines, vitamins, and herbal products. Not all [...] to ensure that the information provided by [employer]. ('[employer]') is accurate, up-to-date, and complete, but no guarantee is made to that effect. Drug information contained herein may be time sensitive. [employer] information has been compiled for use by healthcare practitioners and consumers in the [place] and therefore [employer] does not warrant that uses outside of the [place] are appropriate, unless specifically indicated otherwise. [employer] drug information does not endorse drugs, diagnose patients or recommend therapy. [employer] drug information is an informational resource designed [...] effective or appropriate for any given patient. [employer] does not assume any responsibility for any aspect of healthcare administered with the aid of information [employer] provides. The information contained herein is not intended to cover all possible uses, directions, precautions, warnings, drug interactions, allergic reactions, or adverse effects. If you have questions about the drugs you are taking, check with your doctor, nurse or pharmacist. Copyright 1935-5668 [employer]. Version: 5.01. Revision Date: 12/26/2017. pregabalin (pre [...] may report side effects to FDA at 8-765-DDK-7796. What other drugs will affect pregabalin? Using [...] drugs may affect pregabalin, including prescription and ykqb-ftu-xgmkxcn medicines, vitamins, and herbal products. Not all [...] to ensure that the information provided by [employer]') is accurate, up-to-date, and complete, but no guarantee is made to that effect. Drug information contained herein may be time sensitive. [employer] information has been compiled for use by healthcare practitioners and consumers in the [place] and therefore [employer] does not warrant that uses outside of the [place] are appropriate, unless specifically indicated otherwise. [employer] drug information does not endorse drugs, diagnose patients or recommend therapy. [employer] drug information is an informational resource designed [...] effective or appropriate for any given patient. [employer] does not assume any responsibility for any aspect of healthcare administered with the aid of information [employer] provides. The information contained herein is not intended to cover all possible uses, directions, precautions, warnings, drug interactions, allergic reactions, or adverse effects. If you have questions about the drugs you are taking, check with your doctor, nurse or pharmacist. Copyright 8491-3090 [employer]. Version: 8.01. Revision Date: 09/11/2017. acetaminophen and [...] may report side effects to FDA at 2-056-ZOT-9687. What other drugs will affect acetaminophen and [...] affect acetaminophen and oxycodone, including prescription and upti-xdt-pyqpbpm medicines, vitamins, and herbal products. Not all [...] to ensure that the information provided by [employer] ('[employer]') is accurate, up-to-date, and complete, but no guarantee is made to that effect. Drug information contained herein may be time sensitive. [employer] information has been compiled for use by healthcare practitioners and consumers in the [place] and therefore [employer] does not warrant that uses outside of the [place] are appropriate, unless specifically indicated otherwise. [employer] drug information does not endorse drugs, diagnose patients or recommend therapy. [employer] drug information is an informational resource designed [...] effective or appropriate for any given patient. [employer] does not assume any responsibility for any aspect of healthcare administered with the aid of information [employer] provides. The information contained herein is not intended to cover all possible uses, directions, precautions, warnings, drug interactions, allergic reactions, or adverse effects. If you have questions about the drugs you are taking, check with your doctor, nurse or pharmacist. Copyright 9999-5511 [employer]. Version: 18.02. Revision Date: 02/27/2018. Emergency Awareness [...] Assistance with quitting is available by contacting 5-819-UHMR-NOW. This is a free resource providing counseling, support, and referral. Or you may contact your personal physician. Stevie Suicide Prevention Lifeline: The National Suicide Prevention [...] range between ( 11.7 and 14.9 ) Hinds Percent Man: 8 % -- Normal range [...] range between ( 0.0 and 7.0 ) Hinds #: 0.62 K/uL -- Normal range between ( 0.16 and 1.00 ) Eos #: 0.28 x10(3)/uL -- Normal range between ( 0.00 and 0.80 ) Hinds %: 7.5 % -- Normal range between [...] ) Urine Bilirubin Dipstick: Negative Urine Specific [place]: >1.030 -- Normal range between ( 1.005 and 1.030 ) Urine Type.: U Cath 04/15/2019 8:26 AM Urine Type: U Podio Blood Bank 04/25/2019 8:37 AM ABO/Rh Repeat: [...] was given the opportunity to ask questions. Patient/Adobe Architect Name: Patient/Adobe Architect Signature: Relationship to Patient: Clinician/Hospital Adobe Architect Signature: Date: documented in this encounter Plan of Treatment Not on file documented as of this encounter Visit Diagnoses Not on filedocumented in this encounter
--- OUTSIDE RECORDS SUMMARY | 2024-12-19 09:33 | XMS_ITS | Clinical Summary ---
Author Organization [facility] Address [address] [place] [id number] Care Team Providers Care Retort Pre Cooker Name Role Phone Danelle Lennon APRN Primary [...] 11/28/2023 05/30/2023, 02/01, 11/27/2022, Additional history exists ANNUAL WELLNESS VISIT 02/28/2024 02/27/2023 , 02/17/2022, 11/09/2020, Additional history exists LIPID PANEL 05/30/2024 05/30/2023, 02/01, 05/22/2022, Additional history exists INFLUENZA VACCINE 10/31/2024 02/19/2024, , 02/08/2018, Additional history exists COVID-19 Vaccine (1 - 2023-2 5 season) 2024 TDAP/TD VACCINES (2 - Td or Tdap) 05/07/2025 016 URINE MICROALBUMIN-CREATININ E RATIO (uACR) 06/17/2025 06/17/2024, 04/25/2021, 05/17/2020, Additional history exists MAMMOGRAM 07/17/2025 07/17/2024, 07/01, 06/12/2023, Additional history exists COLONOSCOPY 08/19/2028 08/20/2023, 05/03, [...] - 29.0 mg/g 06/18/2024 12:51 AM EDT [facility] Creatinine, Urine 113.4 mg/dL 06/18/2024 12:51 AM EDT [facility] Microalbumin, Urine 1.3 mg/dL 06/18/2024 12:51 AM EDT [facility] Urine Urine specimen obtained by clean catch procedure / Unknown Collection / Unknown 06/17/2024 3:48 PM EDT 06/17/2024 3:48 PM EDT Bridget VILLAGOMEZ-C URINE ORDERABLES Final Resu lt [facility]
[address] [place] [address], * Colonoscopy, Scan (08/20/2023) us Alex Davis [...] - 05/31/2023 3:08 AM EST Performed at: [address] [place] [id number] Adjuster Electrical Contacts: Lane Haile MD, Phone: [phone] Patient Fasting: Y us Alex Davis MD LAB BLOOD ORDERABLES Final Resu lt [facility] (AMBULATORY) [address] [place] [id number], [facility] [address] [place] [address], [place] [phone] * (ABNORMAL) Lipid Panel (05/30/2023 10:50 AM [...] - 05/31/2023 3:08 AM EST Performed at: [address] [place] [id number] Adjuster Electrical Contacts: Lane Haile MD, Phone: [phone] Patient Fasting: Y Alex Davis MD LAB BLOOD ORDERABLES Final Resu lt [facility] ([facility]ULATORY) [address] [place] [address], [facility] [address] [place] [address], [place] [phone] * SCANNED - EYE EXAM (06/23/2021) Anatomical Region Laterality Modality Other Roc Tracey PA-C CHART REVIEW TABS Final Result * Hepatitis Panel, Acute (12/26/2017 2:04 PM EDT) Hepatitis B Surface Ag Non-Reacti ve Non-Reacti ve 12/26/2017 7:06 PM EDT [facility] Hep A IgM Non-Reacti ve Non-Reacti ve 12/26/2017 7:06 PM EDT [facility] Comment:Results may be false ly decreased if patient taking Biotin. Hep B C IgM Non-Reacti ve Non-Reacti ve 12/26/2017 7:06 PM EDT [facility] Comment:Results may be false ly decreased if patient taking Biotin. Hepatitis C Ab Non-Reacti ve Non-Reacti ve 12/26/2017 7:06 PM EDT [facility] Blood Venipuncture / Unknown 12/26/2017 2:04 PM EDT 12/26/2017 2:04 PM EDT us Guerline Randall SUPERVISOR OVENS LAB BLOOD ORDERABLES Final Res ult [facility]
[address] [place] [address], from Last 3 Months or Most Recently Relevant to Health Maintenance Insurance [facility] Medicare [place] [address] Care Teams Retort Pre Cooker Relationship Specialty Start Date End Date Danelle Lennon APRN [address] [place] [address] AIMEE MARIE [address] PCP - General Internal Medicine 06/18/24
--- OUTSIDE RECORDS SUMMARY | 2024-12-19 09:33 | XMS_ITS | Encounter Summary ---
Author Organization [employer] ([place], [place], [place], [place]) Address [address] [place] [address] Care Team Providers Care Rag Cutting Machine Feeder Name Role Phone Unavailable Primary Care Provider Unavailabl e Encounter Details Date Type Department Care Team (Late st Contact Info) Description 04/23/2019 Transcribed Document [facility] Radiology [address] [place] [address] Provider, [facility] Aiyana Social History Tobacco Use [...] Note - [facility] Aiyana ProviderMD - 04/23/2019 7:04 PM EST [facility] [place] [address] GERTRUDIS DALY :1955 Visit Time:04/23/2019 [...] follow up appointment for results. Where: [address] [facility] [address] [place] [address]- Medications What How Much When Instructions Next [...] activities are safe for you. ??? Take osfw-cvm-bfripsj and prescription medicines only as told by [...] 06/25/2001 Document Revised: 11/02/2017 Document Reviewed: 11/02/2017 [employer] Interactive Patient Education ?? 2019 [employer] Magnetic Resonance Imaging Magnetic resonance imaging [...] including vitamins, herbs, eye drops, creams, and swxd-nbn-vfnbcxv medicines. What are the risks? Generally, MRI [...] 03/16/2001 Document Revised: 08/21/2016 Document Reviewed: 05/14/2014 [employer] Interactive Patient Education ?? 2017 [employer] Emergency Awareness and Preventative Care STROKE [...] Assistance with quitting is available by contacting 9-801-RPUONOW. This is a free resource providing counseling, [...] was given the opportunity to ask questions. Patient/Globe Tester Name: Patient/Globe Tester Signature: Relationship to Patient: Clinician/Hospital Globe Tester Signature: Date: Electronically signed by Carito, [facility] Conversion Parachute Marker Cutris at 08/23/2022 11:19 AM CDT documented in this encounter Plan of Treatment Not on file documented as of this encounter Visit Diagnoses Not on filedocumented in this encounter
--- OUTSIDE RECORDS SUMMARY | 2024-12-19 09:33 | XMS_ITS | Encounter Summary ---
Author Organization [employer] ([place], [place], [place], [place]) Address [address] [place] [address] Care Team Providers Care Pile Driver Operator Barge Mounted Name Role Phone Unavailable Primary Care Provider Unavailabl e Encounter Details Date Type Department Care Team (Late st Contact Info) Description 04/27/2019 Transcribed Document [facility] Radiology 1 [place] [address] ProviderLuciano MD Social History Tobacco Use Types Packs/Day Years Used Date Smoking Tobacco: Never Assessed Comments Unknown Sex and Gender Information Value Date Recorded Sex Assigned at Not on file Legal Sex Female 6:01 PM CDT Gender Identity Not on file Sexual Orientation Not on file documented as of this encounter Miscellaneous Notes * Cerner Conversion Note - [facility] Aiyana ProviderMD - 04/27/2019 6:00 [...]
--- OUTSIDE RECORDS SUMMARY | 2024-12-19 09:33 | XMS_ITS | Encounter Summary ---
Author Organization [employer] ([place], [place], [place], [place]) Address [address] [place] [address] Care Team Providers Care Textile Machinery Instructor Name Role Phone Unavailable Primary Care Provider Unavailabl e Encounter Details Date Type Department Care Team (Late st Contact Info) Description 05/02/2019 Transcribed Document [facility] Radiology 1 [place] [address] ProviderLuciano MD Social History Tobacco [...] [facility] Aiyana ProviderMD - 05/02/2019 8:10 PM [...]
--- OUTSIDE RECORDS SUMMARY | 2024-12-19 09:33 | XMS_ITS | Encounter Summary ---
Author Organization [employer] ([place], [place], [place], [place]) Address [address] [place] [address] Care Team Providers Care Abrasive Band Winder Name Role Phone Unavailable Primary Care Provider Unavailabl e Encounter Details Date Type Department Care Team (Late st Contact Info) Description 04/23/2019 Transcribed Document [facility] Radiology [address] [place] [address] Provider, Luciano Bronson MD Social [...] - [facility] Aiyana ProviderMD - 04/23/2019 7:03 [...] 04/23/2019 18:03 EST Electronically signed by Carito [facility] Conversion Safety And Occupational Health Manager Cerner at 08/23/2022 11:19 AM CDT documented in this encounter Plan of Treatment Not on file documented as of this encounter Visit Diagnoses Not on filedocumented in this encounter
--- OUTSIDE RECORDS SUMMARY | 2024-12-19 09:33 | XMS_ITS | Encounter Summary ---
Author Organization [employer] ([place], [place], [place], [place]) Address [address] [place] [address] Care Team Providers Care Block Cutter Name Role Phone Unavailable Primary Care Provider Unavailabl e Encounter Details Date Type Department Care Team (Late st Contact Info) Description 04/28/2019 Transcribed Document [facility] Radiology [address] [place] [address] Provider, Luciano Bronson MD Social History Tobacco Use Types Packs/Day Years Used Date Smoking Tobacco: Never Assessed Comments Unknown Sex and Gender Information Value Date Recorded Sex Assigned at Not on file Legal Sex Female 6:01 PM CDT Gender Identity Not on file Sexual Orientation Not on file documented as of this encounter Miscellaneous Notes * Cerner Conversion Note - [facility] Aiyana ProviderMD - 04/28/2019 4:17 PM EST UM Authorization Entered On: 04/28/2019 15:19 EST Performed On: 04/28/2019 15:17 EST by Gali Newman Rn-Utilization Review Primary Insurance Authorization Authorization and Policy Numbers : Insurance 1 Health Plan: [employer] MED[employer]ARE REPL Policy Number: [id number] Authorization Number: [id number] Insurance Primary Name : Tanya [id number] Authorization Status-Primary : Awaiting callback Authorization Number-Primary : [id number] Authorized Service Begin Date-Primary : 04/25/2019 EST Authorization Comments-Primary : call back from ten lui with tanya requesting clinical be faxed to [phone]. clinical faxed per faith Bronson Authorization Comments-Primary : Comment 1: lvm with brigette lui with tanya for c/s . acb (Trent, Gali L, Rn-Utilization Review 04/28/2019 13:51) Comment 2: clinicals faxed via [employer]ner for cont stay (only 1 day approved) (BULMARO DUONG, RN-Utilization Review 04/26/2019 13:11) Comment 3: per [facility] inpt approved 1 day auth# [id number] (FRANCY MILIAN, Dba Developer 04/24/2019 13:26) Gali Newman Rn-Utilization Review - 04/28/2019 15:17 EST documented in this encounter Plan of Treatment Not on file documented as of this encounter Visit Diagnoses Not on filedocumented in this encounter
--- OUTSIDE RECORDS SUMMARY | 2024-12-19 09:33 | XMS_ITS | Encounter Summary ---
Author Organization [employer] ([place], [place], [place]) Address [address] [place] [address] Care Team Providers Care Tour Manager Name Role Phone Unavailable Primary Care Provider Unavailabl e Encounter Details Date Type Department Care Team (Late st Contact Info) Description 04/28/2019 Transcribed Document [facility] [address] [place] [address] Provider, Luciano Bronson MD Social [...] [facility] Aiyana ProviderMD - 04/28/2019 5:40 PM EST Consult Phone Call Documentation Entered On: 04/29/2019 8:03 EST Performed On: 04/28/2019 16:40 EST by [facility]ce [facility] Coord Phone Call for Consults Consult Phone Call/Page Attempt : First call Consult Reason : neurogenic bladder Physician Requesting Consult : ALICE MAR PA-INT Provider Team Notified Name : Urology Physician Covering for Consult : NOÉ HAILE MD-URO Date and Time Call Returned : 04/29/2019 8:03 EST Consult, Additional Information : Spoke with Dr. Mcdonald urology resident Marce Multani, [facility] Coord - 04/29/2019 8:02 EST documented in this encounter Plan of Treatment Not on file documented as of this encounter Visit Diagnoses Not on filedocumented in this encounter
--- OUTSIDE RECORDS SUMMARY | 2024-12-19 09:33 | XMS_ITS | Encounter Summary ---
Author Organization [employer] ([place], [place], [place], [place]) Address [address] [place] [address] Care Team Providers Care Bleach Machine Operator Name Role Phone Unavailable Primary Care Provider Unavailabl e Encounter Details Date Type Department Care Team (Late st Contact Info) Description 04/25/2019 Transcribed Document [facility] Radiology [address] [place] [address] Provider, Luciano Bronson MD Social [...] [facility] Aiyana ProviderMD - 04/25/2019 6:44 PM [...] FLORES JONES OTR/Ofelia - 04/26/2019 13:53 EST Jumpbasting Collar Baster Goals, OT Grooming LTG Grid Goal #1 [...] with pts POC per pt tolerance. FLORES OJNES OTR/Ofelia - 04/26/2019 13:53 EST Pain Assessment [...] FLORES JONES OTR/Ofelia - 04/26/2019 13:53 EST [facility] OT Charges OT Eval Moderate Complexity : 1 FLORES JONES OTR/Ofelia - 04/26/2019 13:53 EST Electronically signed by Carito [facility] Conversion Veneer Lathe Operator Cerner at 08/23/2022 11:19 AM CDT documented in this encounter Plan of Treatment Not on file documented as of this encounter Visit Diagnoses Not on filedocumented in this encounter
--- OUTSIDE RECORDS SUMMARY | 2024-12-19 09:33 | XMS_ITS | Encounter Summary ---
Author Organization [employer] ([place], [place], [place], [place]) Address [address] [place] [address] Care Team Providers Care Supervisor Pleating Name Role Phone Unavailable Primary Care Provider Unavailabl e Encounter Details Date Type Department Care Team (Late st Contact Info) Description 05/02/2019 Transcribed Document [facility] Neurology - [address] [facility] [address] [place] [address] Meliza Downs Jr., MD [address] [place] [address] [address] [place] [address] Social History Tobacco Use Types Packs/Day Years [...] 100 mg= 2 Cap, Oral, TID Metamucil [place] Smooth Texture Sugar Free, 1 Packet, Oral, [...] Percent Man 24 % 05/02/2019 03:02 EST [place] Percent Man 8 % (High) 05/02/2019 03:02 [...]
--- OUTSIDE RECORDS SUMMARY | 2024-12-19 09:33 | XMS_ITS | Encounter Summary ---
Author Organization [employer] ([place], [place], [place], [place]) Address [address] [place] [address] Care Team Providers Care Cable Installation Manager Name Role Phone Unavailable Primary Care Provider Unavailabl e Encounter Details Date Type Department Care Team (Late st Contact Info) Description 05/02/2019 Transcribed Document [facility] Neurology - [address] [place] [address] [address] [place] [address] Meliza Downs Jr., MD [address] [place] [address] [address] [place] [address] Social History Tobacco Use Types Packs/Day Years [...]
--- OUTSIDE RECORDS SUMMARY | 2024-12-19 09:33 | XMS_ITS | Encounter Summary ---
Author Organization [employer] ([place], [place], [place], [place]) Address [address] [place] [address] Care Team Providers Care Violin Teacher Name Role Phone Unavailable Primary Care Provider Unavailabl e Encounter Details Date Type Department Care Team (Late st Contact Info) Description 05/02/2019 Transcribed Document [facility] Radiology [address] [place] [address] ProviderLuciano MD Social History Tobacco [...] Note - [facility] Aiyana ProviderMD - 05/02/2019 1:41 PM EST Stroke/Warfarin Instructions Entered On: 05/02/2019 12:41 EST Performed On: 05/02/2019 12:41 EST by Ericka Wharton RN Stroke/Warfarin Instructions Stroke/TIA Discharge Ins : N/A Warfarin Discharge Ins : N/A Ericka Wharton RN - 05/02/2019 12:41 EST Electronically signed by Carito [facility] Conversion Cardiac Catheterization Technician Cerner at 08/23/2022 11:19 AM CDT documented in this encounter Plan of Treatment Not on file documented as of this encounter Visit Diagnoses Not on filedocumented in this encounter
--- OUTSIDE RECORDS SUMMARY | 2024-12-19 09:33 | XMS_ITS | Encounter Summary ---
Author Organization [employer] ([place], [place], [place]) Address [address] [place] [address] Care Team Providers Care Sap Basis Architect Name Role Phone Unavailable Primary Care Provider Unavailabl e Encounter Details Date Type Department Care Team (Late st Contact Info) Description 04/29/2019 Transcribed Document [facility] Radiology 1 [place] [address] Karina Murphy MD [address] [place] [address] Social History Tobacco Use Types Packs/Day [...] 1955 Associated Diagnoses: None Author: GERALDINE KESSLER, CRANE RIGGER-GUNNAR S: Patient found lying in bed. A/O. [...] mg/dL 04/29/2019 09:47 Glucose Level 131 mg/dL [place] 04/29/2019 09:47 Calcium Level 8.8 mg/dL 04/29/2019 [...] Results (Current Encounter/Past 24 Hours) Bun/Creatinine 22.0 [place] 04/29/2019 09:47 Creatinine Level 0.50 mg/dL LOW 04/29/2019 09:47 eGFR NonAfrican >60 mL/min/1.73m2 04/29/2019 09:47 eGFR >60 mL/min/1.73m2 04/29/2019 09:47 Sodium Level 138 mmol/L 04/29/2019 09:47 Potassium Level 3.3 mmol/L LOW 04/29/2019 09:47 Chloride Level 104 mmol/L 04/29/2019 09:47 Carbon Dioxide Level 31 mmol/L 04/29/2019 09:47 Anion Gap 6 LOW 04/29/2019 09:47 Blood Urea Nitrogen 11 mg/dL 04/29/2019 09:47 Glucose Level 131 mg/dL [place] 04/29/2019 09:47 Calcium Level 8.8 mg/dL 04/29/2019 09:47 Coagulation Results (Current Encounter/Past 24 Hours) No Coagulation Results Found (Past 24 Hours) Creatinine Clearance (Current Encounter/Past 24 Hours) Creatinine Level 0.50 mg/dL LOW 04/29/2019 09:47 Bun/Creatinine 22.0 [place] 04/29/2019 09:47 Estimated Creatinine Clearance 92.27 mL/Min [...] Dr. Ortiz; family requesting placement [place] [facility] consulted given neurogenic bladder and retention [...]
--- OUTSIDE RECORDS SUMMARY | 2024-12-19 09:33 | XMS_ITS | Encounter Summary ---
Author Organization [employer] ([place], [place], [place], [place]) Address [address] [place] [address] Care Team Providers Care Prosthetics Assistant Name Role Phone Unavailable Primary Care Provider Unavailabl e Encounter Details Date Type Department Care Team (Late st Contact Info) Description 05/02/2019 Transcribed Document [facility] Radiology [address] [place] [address] Provider, Luciano Bronson MD Social [...] [facility] Aiyana ProviderMD - 05/02/2019 1:41 PM EST Final Discharge Planning Entered On: 05/02/2019 12:43 EST Performed On: 05/02/2019 12:41 EST by ROMELIA MCADAMS RN-Steam Pressure Chamber Operator Final Discharge Planning Discharge Arrangements : Patient [...] Services (Related/SOC within 3 days)-06 ROMELIA MCADAMS, RN-Steam Pressure Chamber Operator - 05/02/2019 12:41 EST Final Narrative Note Final Narrative Note : Precrt denied for acute rehab at [facility]. PT dc'd pt yesterday stating she met all inpatient goals and ambulating 380ft. CM discussed with pt aND SPOUSE AT BEDSIDE.pT WILL LIKELY BE DENIED SUBACUTE WELL. tHEY AGREE TO GO HOME WITH hh FOR sn/pt/ot AND HAV NO PREFERENCE OF middleware systems architect. Mattie WITH [facility] WAS ABLE TO PLACE PT WITH [facility]. FRW and BSC obtained from [employer] and have been delivered. No other CM need identified. ROMELIA MCADAMS RN-Steam Pressure Chamber Operator - 05/02/2019 12:41 EST documented in this encounter Plan of Treatment Not on file documented as of this encounter Visit Diagnoses Not on filedocumented in this encounter
--- OUTSIDE RECORDS SUMMARY | 2024-12-19 09:33 | XMS_ITS | Clinical Summary ---
Author Organization [facility] Address [address] [facility] [address] [place] [address] Care Team Providers Care Can Line Examiner Name Role Phone CharliBenitaEv RINA Primary Care Provider [phone] Allergies Active Allergy Reactions Criticality Noted Date [...] (eight) hours if needed. Active HYDROcodone-iain taminophen ([place]) 5-325 MG tablet Take 1 tablet by [...] Visit [facility] [address] [place] [address] Nasrin Roque PA [address] [place] [address], [address] [place] [address] Health Maintenance Due Date Last [...] 11/28/2023 024, 02/27/2023, 11/27/2022, Additional history exists Depression Risk Screening 04/02/2024 Fall Risk Screening 04/02/2024 SDOH Screening 04/02/2024 Mammogram 06/11/2024 06/12/2023, 06/2 12/2021, 01/30/2020, Additional history exists COVID-19 Vaccine ( season) 2024 Influenza Vaccine (#1) 2024 , 02/27/2023, 02/08/2018, [...] Insurance [employer] MEDICARE ADVANTAGE Care Teams Can Line Examiner Relationship Specialty Start Date End Date Ev Augustin NP [address] [place] [address] PCP - General 12/26/19
--- OUTSIDE RECORDS SUMMARY | 2024-12-19 09:33 | XMS_ITS | Encounter Summary ---
Author Organization [employer] ([place], [place], [place], [place]) Address [address] [place] [address] Care Team Providers Care Smearer Name Role Phone Unavailable Primary Care Provider Unavailabl e Encounter Details Date Type Department Care Team (Late st Contact Info) Description 04/29/2019 Transcribed Document [facility] Radiology [address] [place] [address] Provider, Luciano Bronson MD Social History Tobacco Use Types Packs/Day Years Used Date Smoking Tobacco: Never Assessed Comments Unknown Sex and Gender Information Value Date Recorded Sex Assigned at Not on file Legal Sex Female 6:01 PM CDT Gender Identity Not on file Sexual Orientation Not on file documented as of this encounter Miscellaneous Notes * Cerner Conversion Note - [facility] Aiyana ProviderMD - 04/29/2019 10:39 AM [...] Physician - ALVERTO DIMAS MD-INT - medical vp product management Physician - MACK FAYE MD Referring [...] 100 mg= 2 Cap, Oral, TID Metamucil [place] Smooth Texture Sugar Free, 1 Packet, Oral, [...] 04/28/2019 11:42 EST Electronically signed by Carito, [facility] Conversion Nurse Obgyn Cerner at 08/23/2022 11:19 AM CDT documented in this encounter Plan of Treatment Not on file documented as of this encounter Visit Diagnoses Not on filedocumented in this encounter
--- OUTSIDE RECORDS SUMMARY | 2024-12-19 09:33 | XMS_ITS | Encounter Summary ---
Author Organization [employer] ([place], [place], [place], [place]) Address [address] [place] [address] Care Team Providers Care Certified Recreational Therapist Name Role Phone Unavailable Primary Care Provider Unavailabl e Encounter Details Date Type Department Care Team (Late st Contact Info) Description 04/26/2019 Transcribed Document [facility] Neurology - [facility] [address] [facility] [address] [place] [address] Meliza Downs Jr., MD [address] [place] [address] [address] [place] [address] Social History Tobacco Use Types Packs/Day Years [...]
--- OUTSIDE RECORDS SUMMARY | 2024-12-19 09:33 | XMS_ITS | Encounter Summary ---
Author Organization [employer] ([place], [place], [place], [place]) Address [address] [place] [address] Care Team Providers Care Inside Horticultural Specialty Grower Name Role Phone Unavailable Primary Care Provider Unavailabl e Encounter Details Date Type Department Care Team (Late st Contact Info) Description 04/25/[address] [facility] [address] [place] [address] ProviderLuciano MD Social History Tobacco [...] Note - [facility] Aiyana ProviderMD - 04/25/2019 6:44 PM [...]
--- OUTSIDE RECORDS SUMMARY | 2024-12-19 09:33 | XMS_ITS | Encounter Summary ---
Author Organization [employer] ([place], [place], [place], [place]) Address [address] [place] [address] Care Team Providers Care Test Engineer Nuclear Equipment Name Role Phone Unavailable Primary Care Provider Unavailabl e Encounter Details Date Type Department Care Team (Late st Contact Info) Description 04/26/2019 Transcribed Document [facility] Radiology [address] [place] [address] Provider, Luciano Bronson MD Social [...] * Cerner Conversion Note - [facility] Aiyana Provider, - 04/26/2019 2:31 PM EST [...] Physical Therapy Eval and Treat Ordered By: MLEIZA DOWNS MD-SNU 04/27/2019 12:50 Physical Therapy Eval [...] Met : 04/28/2019 EST 04/28/2019 EST YOANNA GUERERRO, PT - 04/28/2019 14:54 EST YOANNA GUERRERO, [...] 04/28/2019 14:54 EST Electronically signed by Carito [facility] Conversion Editing Clerk Cerner at 08/23/2022 11:19 AM CDT documented in this encounter Plan of Treatment Not on file documented as of this encounter Visit Diagnoses Not on filedocumented in this encounter
--- OUTSIDE RECORDS SUMMARY | 2024-12-19 09:33 | XMS_ITS | Encounter Summary ---
Author Organization [employer] ([place], [place], [place], [place]) Address [address] [place] [address] Care Team Providers Care Cyber Instructor Name Role Phone Unavailable Primary Care Provider Unavailabl e Encounter Details Date Type Department Care Team (Late st Contact Info) Description 04/25/2019 Transcribed Document [facility] Radiology [address] [place] [address] Provider, Luciano Bronson MD Social [...] [facility] Aiyana ProviderMD - 04/25/2019 10:03 AM [...] Anesthesiologist Procedure Case Attendee Role 2 : cyber defense forensics analyst Case Attendee 2 : RICARDO Rojas RN Procedure Case Attendee Role 3 : cyber defense forensics analyst Case Attendee 3 : JACKIE PERALTA RN [...]
--- OUTSIDE RECORDS SUMMARY | 2024-12-19 09:33 | XMS_ITS | Encounter Summary ---
Author Organization [employer] ([place], [place], [place], [place]) Address [address] [place] [address] Care Team Providers Care Playground Monitor Name Role Phone Unavailable Primary Care Provider Unavailabl e Encounter Details Date Type Department Care Team (Late st Contact Info) Description 04/29/2019 Transcribed Document [facility] [address] [facility] [address] [place] [address] Meliza Downs Jr., MD [address] [place] [address] [address] [place] [address] Social History Tobacco Use Types Packs/Day Years [...] for leak. Continue PT. Will need rehab. Petrolia goodman. Urology to see today. VTE Prophylaxis [...] 100 mg= 2 Cap, Oral, TID Metamucil [place] Smooth Texture Sugar Free, 1 Packet, Oral, [...]
--- OUTSIDE RECORDS SUMMARY | 2024-12-19 09:33 | XMS_ITS | Encounter Summary ---
Author Organization [employer] ([place], [place], [place], [place]) Address [address] [place] [address] Care Team Providers Care Case Mgr Name Role Phone Unavailable Primary Care Provider Unavailabl e Encounter Details Date Type Department Care Team (Late st Contact Info) Description 04/23/2019 Transcribed Document [facility] Radiology [address] [place] [address] Provider, Luciano Bronson MD Social [...] [facility] Aiyana ProviderMD - 04/23/2019 1:00 PM EST [facility] Main OR PACU Summary Primary Physician: MELIZA DOWNS MD-[facility] Finalized Date/Time: 04/23/19 18:34:36 Pt. Name: GERTRUDIS DALY /Sex: 1955 Female Med Rec #: [id number] Physician: MELIZA DOWNS MD-[facility] Financial #: [id number] Pt. Type: O Room/Bed: /24 Admit/Disch: 04/23/19 10:57:00 - 04/23/19 18:25:00 Institution: [facility] Main OR PACU I Case Times Entry 1 In PACU I 04/23/19 16:50:00 Ready for PACU 04/23/19 18:00:00 Discharge Discharge from PACU 04/23/19 18:03:00 I Last Modified By: Ev Parada RN 04/23/19 18:34:11 [facility] Main OR PACU I Case Times Audit 04/23/19 18:34:11 Dough Mixer Operator: [id number] Modifier: [id number] <+> 1 Ready for PACU Discharge <+> 1 Discharge from PACU I Finalized By: Ev Parada RN Document Signatures Signed By: Ev Parada RN 04/23/19 18:34 Electronically signed by Carito [facility] Conversion Remote Sensing Analyst Cerner at 08/23/2022 11:19 AM CDT documented in this encounter Plan of Treatment Not on file documented as of this encounter Visit Diagnoses Not on filedocumented in this encounter
--- OUTSIDE RECORDS SUMMARY | 2024-12-19 09:33 | XMS_ITS | Encounter Summary ---
Author Organization [employer] ([place], [place], [place], [place]) Address [address] [place] [address] Care Team Providers Care Marionette Performer Name Role Phone Unavailable Primary Care Provider Unavailabl e Encounter Details Date Type Department Care Team (Late st Contact Info) Description 04/28/2019 Transcribed Document [facility] Radiology [address] [place] [address] Provider, Luciano Bronson MD Social [...] - [facility] Aiyana ProviderMD - 04/28/2019 9:31 AM EST [...] with Hanna Murphy MD Electronically signed by [facility] Conversion Program Clinician Cerner at 08/23/2022 11:19 AM CDT documented in this encounter Plan of Treatment Not on file documented as of this encounter Visit Diagnoses Not on filedocumented in this encounter
--- OUTSIDE RECORDS SUMMARY | 2024-12-19 09:33 | XMS_ITS | Clinical Summary ---
Author Organization [facility] Address [address] [place] [address] Care Team Providers Care Pocket Cutter Name Role Phone Ev Augustin VASILE Primary Care Provider [phone] Allergies Active Allergy Reactions Criticality Noted Date [...] Density Scan 1955 [facility]-Infant/Child/Adol SDOH Screenings 1955 [id number] Vaccine (#1) 1960 [facility]- SDOH Screenings 1974 [...] Negative 11/08/2023 4:13 PM EDT [facility] Hepatitis B Core Antibody IgM Negative Negative 11/08/2023 4:13 PM EDT [facility] Blood Venous blood specimen / Unknown Venipuncture / Unknown 11/08/2023 1:57 PM EDT 11/08/2023 2:01 PM EDT us Denis Hudson APRN LAB BLOOD ORDERABLES Final Res ult Performing Organization Address City/State/[facility] Co de Phone Number [facility]ALTHCARE [facility] [address] [place] [address] from Last 3 Months or Most Recently Relevant to Health Maintenance Insurance Care Teams Pocket Cutter Relationship Specialty Start Date End Date Ev Augustin APRN [address] [place] [address] PCP - General 08/13/20
--- OUTSIDE RECORDS SUMMARY | 2024-12-19 09:33 | XMS_ITS | Encounter Summary ---
Author Organization [employer] ([place], [place], [place], [place]) Address [address] [place] [address] Care Team Providers Care Advertising Specialist Name Role Phone Unavailable Primary Care Provider Unavailabl e Encounter Details Date Type Department Care Team (Late st Contact Info) Description 04/28/2019 Transcribed Document [facility] Radiology [address] [place] [address] Provider, Luciano Bronson MD Social [...] [facility] Aiyana ProviderMD - 04/28/2019 2:51 PM EST UM Authorization Entered On: 04/28/2019 13:51 EST Performed On: 04/28/2019 13:51 EST by Gali Newman Rn-Utilization Review Primary Insurance Authorization Authorization and Policy Numbers : Insurance 1 Health Plan: [employer] MED[employer]ARE REPL Policy Number: [id number] Authorization Number: [id number] Insurance Primary Name : Mariela [id number] Authorization Status-Primary : Awaiting callback Authorization Number-Primary : [id number] Authorized Service Begin Date-Primary : 04/25/2019 EST Authorization Comments-Primary : lvm with brigette lui with [facility] for c/s . acb Historical Authorization Comments-Primary : Comment 1: clinicals faxed via [employer] for cont stay (only 1 day approved) (BULMARO DUONG RN-Utilization Review 04/26/2019 13:11) Comment 2: per [employer] inpt approved 1 day auth# [id number] (FRANCY MILIAN, Residential Subcontractor 04/24/2019 13:26) Gali Newman Rn-Utilization Review - 04/28/2019 13:51 EST Electronically signed by Carito [facility] Conversion Blemish Remover Cerner at 08/23/2022 11:19 AM CDT documented in this encounter Plan of Treatment Not on file documented as of this encounter Visit Diagnoses Not on filedocumented in this encounter
--- OUTSIDE RECORDS SUMMARY | 2024-12-19 09:33 | XMS_ITS | Encounter Summary ---
Author Organization [employer] ([place], [place], [place], [place]) Address [address] [place] [address] Care Team Providers Care Starch Cooker Name Role Phone Unavailable Primary Care Provider Unavailabl e Encounter Details Date Type Department Care Team (Late st Contact Info) Description 05/02/2019 Transcribed Document [facility] Radiology [address] [place] [address] Provider, Luciano Bronson MD Social [...] [facility] Aiyana ProviderMD - 05/02/2019 1:40 PM EST On Going Discharge Planning Entered On: 05/02/2019 12:41 EST Performed On: 05/02/2019 12:40 EST by ROMELIA MCADAMS RN-Hide SalterRecord Keeper Progress Note Discharge Arrangements : Patient Post-Acute [...] Post Acute Providers : Yes ROMELIA MCADAMS, RN-Hide Salter - 05/02/2019 12:40 EST Electronically signed by Jim Arzate Conversion Pathology Secretary/Transcriptionist Cerner at 08/23/2022 11:19 AM CDT documented in this encounter Plan of Treatment Not on file documented as of this encounter Visit Diagnoses Not on filedocumented in this encounter
--- OUTSIDE RECORDS SUMMARY | 2024-12-19 09:33 | XMS_ITS | Clinical Summary ---
Author Organization [employer] [facility] ([place], [place], [place], [place]) Address [address] [place] [address] Care Team Providers Care Counter Top Assembler Name Role Phone Unavailable Primary Care [...]
--- OUTSIDE RECORDS SUMMARY | 2024-12-19 09:33 | XMS_ITS | Encounter Summary ---
Author Organization [employer] ([place], [place], [place], [place]) Address [address] [place] [address] Care Team Providers Care Body Masker Name Role Phone Unavailable Primary Care Provider Unavailabl e Encounter Details Date Type Department Care Team (Late st Contact Info) Description 04/28/2019 Transcribed Document [facility] Radiology [address] [place] [address] Provider, Luciano Bronson MD Social History Tobacco Use Types Packs/Day Years Used Date Smoking Tobacco: Never Assessed Comments Unknown Sex and Gender Information Value Date Recorded Sex Assigned at Not on file Legal Sex Female 6:01 PM CDT Gender Identity Not on file Sexual Orientation Not on file documented as of this encounter Miscellaneous Notes * Cerner Conversion Note - [facility] Aiyana ProviderMD - 04/28/2019 2:50 PM EST UM Authorization Entered On: 04/28/2019 13:50 EST Performed On: 04/28/2019 13:50 EST by Gali Newman Rn-Utilization Review Primary Insurance Authorization Authorization and Policy Numbers : Insurance 1 Health Plan: [employer] MEDICARE REPL Policy Number: [id number] Authorization Number: [id number] Insurance Primary Name : Mariela [id number] Authorization Status-Primary : Awaiting callback Authorization Number-Primary : [id number] Authorized Service Begin Date-Primary : 04/25/2019 EST Historical Authorization Comments-Primary : Comment 1: clinicals faxed via [employer] for cont stay (only 1 day approved) (BULMARO DUONG, RN-Utilization Review 04/26/2019 13:11) Comment 2: per [employer] inpt approved 1 day auth# [id number] (FRANCY MILIAN, Industrial Relations Worker 04/24/2019 13:26) Gali Newman Rn-Utilization Review - 04/28/2019 13:50 EST Electronically signed by Carito, [facility] Conversion Collar Separator Cerner at 08/23/2022 11:19 AM CDT documented in this encounter Plan of Treatment Not on file documented as of this encounter Visit Diagnoses Not on filedocumented in this encounter
--- OUTSIDE RECORDS SUMMARY | 2024-12-19 09:33 | XMS_ITS | Encounter Summary ---
Author Organization [employer] ([place], [place], [place], [place]) Address [address] [place] [address] Care Team Providers Care Photoresist Printer Name Role Phone Unavailable Primary Care Provider Unavailabl e Encounter Details Date Type Department Care Team (Late st Contact Info) Description 04/25/2019 Transcribed Document [facility] Radiology [address] [place] [address] ProviderLuciano MD Social History Tobacco Use Types Packs/Day Years Used Date Smoking Tobacco: Never Assessed Comments Unknown Sex and Gender Information Value Date Recorded Sex Assigned at Not on file Legal Sex Female 6:01 PM CDT Gender Identity Not on file Sexual Orientation Not on file documented as of this encounter Miscellaneous Notes * Cerner Conversion Note - [facility] Aiyana ProviderMD - 04/25/2019 6:44 PM EST [...] 04/27/2019 8:44 EST Electronically signed by Carito [facility] Conversion Forensic Structural Engineer Cerner at 08/23/2022 11:19 AM CDT documented in this encounter Plan of Treatment Not on file documented as of this encounter Visit Diagnoses Not on filedocumented in this encounter
--- OUTSIDE RECORDS SUMMARY | 2024-12-19 09:33 | XMS_ITS | Encounter Summary ---
Author Organization [employer] ([place], [place], [place], [place]) Address [address] [place] [address] Care Team Providers Care Land Surveyor Assistant Name Role Phone Unavailable Primary Care Provider Unavailabl e Encounter Details Date Type Department Care Team (Late st Contact Info) Description 04/25/2019 Transcribed Document [facility] Radiology [address] [place] [address] Provider, yvon Bronson MD Social [...] [facility] Aiyana ProviderMD - 04/25/2019 1:05 PM EST [facility] Main OR Preop Summary Primary Physician: MELIZA DOWNS MD- Finalized Date/Time: 04/25/19 13:08:43 Pt. Name: GERTRUDIS DALY /Sex: 1955 Female Med Rec #: [id number] Physician: MELIZA DOWNS MD-[facility] Financial #: [id number] Pt. Type: I Room/Bed: ASA/1 Admit/Disch: 04/25/19 06:38:00 - Institution: [facility] PreOp Case Times Entry 1 In Preop 04/25/19 07:51:00 Ready for Holding n/a Room Patient Ready for 04/25/19 09:28:00 Surgery Patient Out of Preop 04/25/19 11:14:00 Patient Out of n/a Holding Room Last Modified By: CHRISTELLE MCCORD RN 04/25/19 13:08:36 [facility] PreOp Case Times Audit 04/25/19 13:08:36 Psychological Science Professor: EMILIE Modifier: [email or web address] <+> 1 Patient Out of Preop 04/25/19 09:28:42 Psychological Science Professor: EMILIE Modifier: [email or web address] <+> 1 Patient Ready for Surgery Finalized By: CHRISTELLE MCCORD V., RN Document Signatures Signed By: CHRISTELLE MCCORD RN 04/25/19 13:08 Electronically signed by Carito [facility] Conversion Bag Cutter Cerner at 08/23/2022 11:18 AM CDT documented in this encounter Plan of Treatment Not on file documented as of this encounter Visit Diagnoses Not on filedocumented in this encounter
--- OUTSIDE RECORDS SUMMARY | 2024-12-19 09:33 | XMS_ITS | Encounter Summary ---
Author Organization [employer] ([place], [place], [place], [place]) Address [address] [place] [address] Care Team Providers Care Solid Waste Technician Name Role Phone Unavailable Primary Care Provider Unavailabl e Encounter Details Date Type Department Care Team (Late st Contact Info) Description 05/02/2019 Transcribed Document [facility] Radiology [address] [place] [address] Provider, Luciano Bronson MD Social [...] - [facility] Aiyana ProviderMD - 05/02/2019 9:47 AM EST UM Authorization Entered On: 05/02/2019 8:49 EST Performed On: 05/02/2019 8:47 EST by Gali Newman Rn-Utilization Review Primary Insurance Authorization Authorization and Policy Numbers : Insurance 1 Health Plan: [employer] MEDICARE REPL Policy Number: [id number] Authorization Number: [id number] Insurance Primary Name : Tanya [id number] Authorization Status-Primary : Admit approved Authorization Number-Primary : [id number] Number of Days Authorized-Primary : 8 Day(s) Authorized Service Begin Date-Primary : 04/25/2019 EST Authorized Service End Date-Primary : 05/03/2019 EST Authorization Comments-Primary : c/s auth approved per brigette for 05/01 to 05/02. minh 05/03 Historical Authorization Comments-Primary : Comment 1: Authorized per fax 04/29/2019 @ 1530. Approved x5 days (6 total: 04/25-04/30). Next review due on 05/01/2019. Tameka Davidson, RN. (Dayna Rios, Italian Tutor 04/30/2019 07:06) Comment 2: clinical faxed per cerner for 04/27 and 04/28 (Gali Newman, Rn-Utilization Review 04/28/2019 15:19) Comment 3: call back from tameka lui with [employer] requesting clinical be faxed to [phone]. clinical faxed per cerner (Gali Newman, Rn-Utilization Review 04/28/2019 15:17) Comment 4: lvm with brigette lui with [facility] for c/s . acb (Gali Newman, Rn-Utilization Review 04/28/2019 13:51) Comment 5: clinicals faxed via [employer] for cont stay (only 1 day approved) (BULMARO DUONG, RN-Utilization Review 04/26/2019 13:11) Comment 6: per [employer] inpt approved 1 day auth# [id number] (FRANCY MILIAN, Car Pick Up Driver 04/24/2019 13:26) Gali Newman, Deya-Utilization Review - 05/02/2019 8:47 EST documented in this encounter Plan of Treatment Not on file documented as of this encounter Visit Diagnoses Not on filedocumented in this encounter
--- OUTSIDE RECORDS SUMMARY | 2024-12-19 09:33 | XMS_ITS | Encounter Summary ---
Author Organization [employer] ([place], [place], [place], [place]) Address [address] [place] [address] Care Team Providers Care Evp General Counsel Name Role Phone Unavailable Primary Care Provider Unavailabl e Encounter Details Date Type Department Care Team (Late st Contact Info) Description 04/25/2019 Transcribed Document [facility] Radiology [address] [place] [address] Provider, yvon Bronson MD [...] Aiyana ProviderMD - 04/25/2019 1:05 PM EST [facility] Main OR IntraOp Summary Primary Physician: MELIZA DOWNS MD-SNU Finalized Date/Time: 04/27/19 12:47:33 Pt. Name: KANG DALYGHANSHYAM Gilbert /Sex: 1955 Female Med Rec #: [id number] Physician: MELIZA DOWNS MD-NIYA Financial #: [id number] Pt. Type: I Room/Bed: [facility] Admit/Disch: 04/25/19 06:38:00 - Institution: [facility] IntraOp Case Attendance Entry 1 Entry 2 Entry 3 Case Attendee MELIZA DOWNS MD-SNU Burdine, Teresa A, RN BRADY, CHRISTINA M, RN Role Performed Surgeon/Proceduralist, Morgue Attendant, First Morgue Attendant, First First Time In 04/25/19 11:21:00 04/25/19 11:21:00 04/25/19 11:21:00 Time Out 04/25/19 17:43:00 04/25/19 17:43:00 04/25/19 12:15:00 Procedure Lumbar Laminectomy Lumbar Laminectomy Lumbar Laminectomy Other Attendee lunch relief Superficial Wound Closed By: Last Modified By: Lida Mitchell RN Burdine, Teresa A, Lida Ho RN 04/25/19 17:44:12 04/25/19 17:44:12 04/25/19 17:44:12 Entry 4 Entry 5 Entry 6 Case Attendee JACKSON PATTERSON, [facility] Oscar MONAHAN Mark, DAHLIA BURRIS-JEB Role Performed Scrub, First Physician employee relations assistant WASTE SPECIALIST/Nurse Cyber Incident Handler Time In 04/25/19 11:21:00 04/25/19 11:21:00 04/25/19 [...] TSAI MD-Courtney Arenas, OTHER, ATTENDEE #1 Diagnostic Materials Specialist Role Performed Anesthesiologist of Fire Captain Other Record Time In 04/25/19 11:21:00 04/25/19 [...] WASSON, SANDRA D RN Technologist Role Performed Fire Captain Scrub, Second Time In 04/25/19 13:10:00 04/25/19 13:00:00 Time Out 04/25/19 14:38:00 04/25/19 14:15:00 Procedure Lumbar Laminectomy Lumbar Laminectomy Other Attendee LUNCH RELIEF Superficial Wound Closed By: Last Modified By: Lida Mitchell RN Burdine, Teresa A, RN 04/25/19 17:44:12 04/25/19 17:44:12 [facility] IntraOp Case Attendance Audit 04/25/19 17:44:12 Computer Application Developer: [id number] Modifier: [id number] <+> Time Out 1 <*> Procedure [...] 11 <*> Procedure Lumbar Laminectomy 04/25/19 16:08:03 Computer Application Developer: [id number] Modifier: [id number] <+> Time Out 3 <*> Procedure Lumbar Laminectomy 04/25/19 14:51:38 Computer Application Developer: [id number] Modifier: [id number] <+> Time Out 10 <*> Procedure Lumbar Laminectomy 04/25/19 14:16:00 Computer Application Developer: [id number] Modifier: [id number] <+> Time Out 11 <*> Procedure Lumbar Laminectomy 04/25/19 13:35:44 Computer Application Developer: [id number] Modifier: [id number] <+> 10 Case Attendee <+> 10 Role Performed <+> 10 Time In <+> 10 Procedure <+> 10 Other Attendee <+> 11 Case Attendee <+> 11 Role Performed <+> 11 Time In <+> 11 Procedure 04/25/19 12:44:43 Computer Application Developer: [id number] Modifier: [id number] <+> 1 Procedure 2 <*> Procedure Lumbar Laminectomy 3 <*> Procedure Lumbar Laminectomy 4 <*> Procedure Lumbar Laminectomy 5 <*> Procedure Lumbar Laminectomy 6 <*> Procedure Lumbar Laminectomy 7 <*> Procedure Lumbar Laminectomy 8 <*> Procedure Lumbar Laminectomy 9 <*> Procedure Lumbar Laminectomy 04/25/19 12:43:20 Computer Application Developer: [id number] Modifier: [id number] 2 <*> Procedure Lumbar Laminectomy 3 <*> Procedure Lumbar Laminectomy 4 <*> Procedure Lumbar Laminectomy 5 <*> Procedure Lumbar Laminectomy 6 <*> Procedure Lumbar Laminectomy 7 <*> Procedure Lumbar Laminectomy 8 <*> Procedure Lumbar Laminectomy 9 <+> Time In 9 <*> Procedure Lumbar Laminectomy 04/25/19 12:25:13 Computer Application Developer: [id number] Modifier: [id number] 2 <*> Procedure Lumbar Laminectomy 3 <*> Procedure Lumbar Laminectomy 4 <*> Procedure Lumbar Laminectomy 5 <*> Procedure Lumbar Laminectomy 6 <*> Procedure Lumbar Laminectomy 7 <*> Procedure Lumbar Laminectomy 8 <+> Time In 8 <*> Procedure Lumbar Laminectomy <+> 9 Case Attendee <+> 9 Role Performed <+> 9 Procedure <+> 9 Other Attendee 04/25/19 12:23:07 Computer Application Developer: [id number] Modifier: [id number] <+> 1 Time In 2 <+> Time [...] <+> 8 Role Performed <+> 8 Procedure [facility] IntraOp Case Times Entry 1 Patient In Room Time 04/25/19 11:21:00 Out Room Time 04/25/19 17:43:00 Anesthesia Start Time 04/25/19 11:21:00 Stop Time 04/25/19 17:43:00 Surgery / Procedure Times Start Time 04/25/19 12:05:00 Stop Time 04/25/19 17:29:00 Last Modified By: Lida Mitchell RN 04/25/19 17:43:33 [facility] IntraOp Case Times Audit 04/25/19 17:43:33 Computer Application Developer: [id number] Modifier: [id number] <+> 1 Out Room Time <+> 1 Stop Time <+> 1 Stop Time [facility] IntraOp Cautery Entry 1 Entry 2 ESU Identification Cautery Type Monopolar ESU BiPolar ESU Cautery Type Comments ID Number [id number] ID Type Hospital Number Hospital Number Cautery [...] Teresa A, RN 04/25/19 12:24:11 04/25/19 12:25:58 [facility] IntraOp Cautery Audit 04/25/19 12:25:58 Computer Application Developer: [id number] Modifier: [id number] <+> 2 Cautery Type <+> 2 Coag Setting <+> 2 Cut Setting <+> 2 ID Number <+> 2 ID Type [facility] IntraOp Communication Entry 1 Entry 2 [...] Modified By: Lida Mitchell RN 04/25/19 16:58:34 [facility] IntraOp Communication Audit 04/25/19 16:58:34 Computer Application Developer: [id number] Modifier: [id number] <*> Comment CLOSING 04/25/19 16:33:59 Computer Application Developer: [id number] Modifier: [id number] <+> 3 Communication By <+> 3 Date and Time <+> 3 Communication To <+> 3 Comment <+> 4 Communication By <+> 4 Date and Time <+> 4 Communication To <+> 4 Comment 04/25/19 13:43:33 Computer Application Developer: [id number] Modifier: [id number] <+> 2 Communication By <+> 2 Date and Time <+> 2 Communication To <+> 2 Comment [facility] IntraOp Counts Verification Entry 1 Procedure Lumbar Laminectomy Count Info Count Type Sponge, Sharps, Miscellaneous Counts Verification Baseline/pre-procedure Sequence Counts Performed By Count Performed By JACKSON PATTERSON ST (Scrub) Count Performed By Lida Mitchell RN (RN) Last Modified By: Lida Mitchell RN 04/25/19 12:07:52 [facility] IntraOp Counts Final Entry 1 Procedure Lumbar Laminectomy Final Count Info Count Type Sponge, Sharps, Miscellaneous Counts Verification Skin Closure/end of Sequence procedure Count Results Correct, surgeon notified Counts Performed By Count Performed By JACKSON PATTERSON ST (Scrub) Count Performed By Lida Mitchell RN (RN) Last Modified By: Lida Mitchell RN 04/25/19 17:43:58 [facility] IntraOp Counts Final Audit 04/25/19 17:43:58 Computer Application Developer: [id number] Modifier: [id number] Entry 1 was deleted. Higher numbered entries shifted one position to fill the gap. <-> 1 Procedure Lumbar Laminectomy <-> 1 Count Type Sponge, Sharps, Miscellaneous <-> 1 Count Results Correct, surgeon notified <-> 1 Count Performed By (Scrub) JACKSON PATTERSON ST <-> 1 Count Performed By (RN) Lida Mitchell RN <-> 1 Counts Verification Sequence 04/25/19 17:43:46 Computer Application Developer: [id number] Modifier: [id number] <+> 2 Procedure <+> 2 Count Type <+> 2 Count Results <+> 2 Count Performed By (Scrub) <+> 2 Count Performed By (RN) <+> 2 Counts Verification Sequence [facility] IntraOp Cultures and Spec Summary Entry 1 Cultrures and Specimens Specimen Ordered: Yes Test(s) Frozen Requested/Final Section(s)/Path-Lab Disposition Last Modified By: Lida Mitchell RN 04/25/19 17:43:50 General Comments: A. NEOPLASM OF SPINE B. SONAPET CONTENTS C. CAUDA EQUINA TUMOR [facility] IntraOp Cultures and Spec Summary Audit 04/25/19 17:43:50 Computer Application Developer: [id number] Modifier: [id number] <*> Specimen Ordered: [facility] IntraOp Departure from OR Entry 1 Integumentary Assessment Integumentary WDL Assessment WDL Transfer/Handoff Transfer to PACU Phase I Handoff Method Phone call Post-op Transport Stretcher/Gurtessa Via Patient Transport AISHA MONAHAN, Accompanied by ASHER JENKINS, Vu Moore, MARY Last Modified By: Lida Mitchell RN 04/25/19 12:26:34 [facility] IntraOp Dressing and Packing Entry 1 Type Dressing Location OPSITE Wound Dressing Item Occlusive dressing Applied By ALICE MAR PA-INT Last Modified By: Lida Mitchell RN 04/25/19 12:27:03 [facility] IntraOp Fire Risk Assessment Entry 1 [...] Modified By: Lida Mitchell RN 04/25/19 12:27:34 [facility] IntraOp General Case Astrochemist 1 Case Information OR OR 09 [facility] Case Level 1 Room Verified Yes Wound Class I - Clean Specialty SN Neurosurgery ASA Class 3 Diagnosis 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 Postop Same As Preop No Postop Diagnosis SEE MD POST OP NOTE Last Modified By: Lida Mitchell RN 01/24/20 12:33:13 [facility] IntraOp Implant Log Entry 1 Type Implant (Synthetic) Implant Log Implant Type Mesh Implant GRAFT MATRIX DURA Identification [id number] Description Implant Quantity 1 Implant Site OPSITE Implant [id number] Identification Lot Number Implant Med[employer]onic Surgical Identification Navigation Mechanical Shop Laborer Name: Implant [id number] Identification Catalog Number Implant Has an Yes Expiration Date Implant Expiration 05/30/21 Date Tissue Implant Last Modified By: Lida Mitchell RN 04/25/19 16:47:01 [facility] IntraOp Intraoperative Assessment Entry 1 Handoff [...] Modified By: Lida Mitchell RN 04/25/19 12:34:19 [facility] IntraOp Intraoperative Assessment Audit 04/25/19 12:34:19 Computer Application Developer: [id number] Modifier: [id number] <*> Present Upon Arrival to OR IVs [facility] IntraOp Intraoperative Equipment Entry 1 Type [...] Modified By: Lida Mitchell RN 04/25/19 12:39:08 [facility] IntraOp Medication Admin Entry 1 Entry 2 Entry 3 Medication/Irrigant neomycin/bacitracin/poly thrombin 5,000 unit pwd FLSEAL VHSD FULL mixin 15 gm oint STRLPREP [id number] --[id number] Combo Med List Time Administered Route of [...] Medication/Irrigant SEALANT DURASL SPINE FLSEAL SD FULL [id number] STRLPREP 10ML-[id number] Combo Med List Time Administered Route of TOPICAL TOPICAL Administration Dose Dose 5 10 Unit of Measure ml ml Volume Administered By MELIZA DOWNS MD-SNU OWEN, ROBERT D, MD-SNU Procedure Irrigation Irrigant Volume In Irrigant Volume Out Last Modified By: Lida Mitchell RN Burdine, Teresa A, RN 04/25/19 13:47:01 04/25/19 16:58:55 [facility] IntraOp Medication Admin Audit 04/25/19 16:58:55 Computer Application Developer: [id number] Modifier: [id number] <+> 5 Medication/Irrigant <+> 5 Route of Administration <+> 5 Administered By <+> 5 Dose <+> 5 Unit of Measure 04/25/19 13:47:01 Computer Application Developer: [id number] Modifier: [id number] <+> 4 Medication/Irrigant <+> 4 Route of Administration <+> 4 Administered By <+> 4 Dose <+> 4 Unit of Measure 04/25/19 13:01:17 Computer Application Developer: [id number] Modifier: [id number] <+> 3 Medication/Irrigant <+> 3 Route of Administration <+> 3 Administered By <+> 3 Dose <+> 3 Unit of Measure [facility] IntraOp Patient Positioning Entry 1 Procedure [...] Modified By: Lida Mitchell RN 04/25/19 12:43:00 [facility] IntraOp Sign In Entry 1 Patient, [...] Modified By: Lida Mitchell RN 04/25/19 12:43:17 [facility] IntraOp Sign Out Entry 1 RN [...] Modified By: Lida Mitchell RN 04/25/19 17:44:08 [facility] IntraOp Sign Out Audit 04/25/19 17:44:08 Computer Application Developer: [id number] Modifier: [id number] <+> 1 RN Sign Out Signature Date/Time [facility] IntraOp Skin Prep Entry 1 Procedure Lumbar Laminectomy Prescribed Yes Pre-Surgical Prep Completed Prep Area OPSITE Intraop Prep Integumentary WDL Assessment WDL Prep Agents Chloraprep Prep by Lida Mitchell RN Hair Removal Methods No hair removal performed Last Modified By: Lida Mitchell RN 04/25/19 12:44:40 [facility] IntraOp Surgical Procedures Entry 1 Procedure Lumbar Laminectomy Additional (LUMBAR LAMINECTOMY Procedure WITH RESECTION Description /DEBULKING OF INTRA DURAL CAUDE EQUINA TUMOR) Primary Procedure Yes Primary Surgeon MELIZA DOWNS MD-SNU Start 04/25/19 12:05:00 Stop 04/25/19 17:29:00 Anesthesia Type General Specialty SN Neurosurgery Wound Class I - Clean Last Modified By: Lida Mitchell RN 04/25/19 17:44:10 [facility] IntraOp Surgical Procedures Audit 04/25/19 17:44:10 Computer Application Developer: [id number] Modifier: [id number] <+> 1 Stop [facility] IntraOp Temp Regulation Devices Entry 1 Temp Regulation Temperature Forced Air Warming Regulation Device device, Warm blankets Temperature Upper body Regulation Site Temperature Device 43 Setting Temperature Oscar, Vu, WASTE SPECIALIST Regulation Device Applied by Temperature PATIENT'S TEMPERATURE Regulation Comment MONITORED BY ANESTHESIA Last Modified By: Lida Mitchell RN 04/25/19 12:45:34 [facility] IntraOP Time Out Entry 1 Procedure [...] Modified By: Lida Mitchell RN 04/25/19 12:05:42 [facility] IntraOp X-Ray and Images Entry 1 X-Ray/Imaging Type Fluoroscopy Fluoroscopy Type C-Arm Site OPSITE Language Therapist Name Ev Toro RN-Educator I Protective Devices [...]
--- OUTSIDE RECORDS SUMMARY | 2024-12-19 09:33 | XMS_ITS | Encounter Summary ---
Author Organization [employer] ([place], [place], [place], [place]) Address [address] [place] [address] Care Team Providers Care Pusher Runner Name Role Phone Unavailable Primary Care Provider Unavailabl e Encounter Details Date Type Department Care Team (Late st Contact Info) Description 04/23/2019 Transcribed Document [facility] Radiology [address] [place] [address] Provider, Luciano Bronson MD Social History Tobacco Use Types Packs/Day Years Used Date Smoking Tobacco: Never Assessed Comments Unknown Sex and Gender Information Value Date Recorded Sex Assigned at Not on file Legal Sex Female 6:01 PM CDT Gender Identity Not on file Sexual Orientation Not on file documented as of this encounter Miscellaneous Notes * Cerner Conversion Note - [facility] Aiyana ProviderMD - 04/23/2019 12:37 PM EST Pre Procedure Adult Entered On: 04/23/2019 11:40 EST Performed On: 04/23/2019 11:37 EST by CHRISTOPHER MONTIEL RN Height and Weight, Clinical Dosing Height Source : Stated Height Entry Format : [place] Height, Feet : 5 ft(Converted to: 152 cm, 60 Inch) Height, Inches : 2 Inch(Converted to: 0 ft 2 Inch, 5.08 cm) Clinical Height : 157.48 cm Weight Source : Standing scale Weight Entry Format : [place] Clinical Dosing Weight : 81.82 kg Weight, Pounds : 180 lb Body Surface Area (BSA) : 1.83 m2 Body Mass Index : 33 kg/m2 (HI) [place] Body Weight : 50 kg CHRISTOPHER MONTIEL [...] none. (Last Updated: 04/15/2019 09:19:39 EST by ITA SHARMA, RN) Substance Abuse: Drug Use Hx: [...] CHRISTOPHER MONTIEL RN - 04/23/2019 11:37 EST [place] Suicide Severity Rating Scale (C-SSRS) CSSRS Past [...] Navarro-Friend Support Person/Pt Rep Contact Information : [phone] Want Family/Rep/Phys Notified of Admit : No Emergency Contact #1 : . Emergency Contact #1 Phone Number : . Emergency Contact #1 Relationship : . Emergency Contact #2 : . Emergency Contact #2 Phone Number : . Emergency Contact #2 Relationship : . Primary Language : Libyan Preferred Communication Mode : Verbal Communication Barrier [...] Scale Risk Level : 0-24 Low Risk [place] Fall Interventions : Adequate lighting, Assistive devices [...]
--- OUTSIDE RECORDS SUMMARY | 2024-12-19 09:33 | XMS_ITS | Encounter Summary ---
[facility] Organization [facility] Address [address] [place] [address] Care Team Providers Care Referral Management Liaison Name Role Phone Danelle Lennon APRN Primary Care Provider + [phone] Reason for Visit * Reason Comments Med Refill Encounter Details Date Type Department Care Team (Late st Contact Info) Description 10/08/2023 Refill [facility] [address] [place] [address] Alex Davis MD [address] [place] [address] Anxiety and depression; Postlaminectomy syndrome [...] documented as of this encounter Care Teams Referral Management Liaison Relationship Specialty Start Date End Date Danelle Lennon APRN [address] [place], [place] [id number] PCP - General Internal Medicine 06/18/24 documented as of this encounter
--- OUTSIDE RECORDS SUMMARY | 2024-12-19 09:33 | XMS_ITS | Encounter Summary ---
Author Organization [employer] ([place], [place], [place], [place]) Address [address] [place] [address] Care Team Providers Care Truss Builder Name Role Phone Unavailable Primary Care Provider Unavailabl e Encounter Details Date Type Department Care Team (Late st Contact Info) Description 04/25/2019 Transcribed Document [facility] Radiology [address] [place] [address] ProviderLuciano MD Social History Tobacco [...] [facility] Aiyana ProviderMD - 04/25/2019 10:00 PM [...]
--- OUTSIDE RECORDS SUMMARY | 2024-12-19 09:33 | XMS_ITS | Encounter Summary ---
Author Organization [employer] ([place], [place], [place], [place]) Address [address] [place] [address] Care Team Providers Care Loom Winder Tender Name Role Phone Unavailable Primary Care Provider Unavailabl e Encounter Details Date Type Department Care Team (Late st Contact Info) Description 04/25/2019 Transcribed Document [facility] Radiology [address] [place] [address] Provider, Luciano Bronson MD Social [...] - [facility] Aiyana ProviderMD - 04/25/2019 1:[address] [facility] Main OR PACU Summary Primary Physician: MELIZA DOWNS MD-[facility] Finalized Date/Time: 04/25/19 20:10:04 Pt. Name: ADDY GERTRUDIS Gilbert /Sex: 1955 Female Med Rec #: [id number] Physician: MELIZA DOWNS MD-[facility] Financial #: [id number] Pt. Type: I Room/Bed: [facility]/ Admit/Disch: 04/25/19 06:38:00 - Institution: [facility] Main [...]
--- OUTSIDE RECORDS SUMMARY | 2024-12-19 09:33 | XMS_ITS | Encounter Summary ---
Author Organization [employer] ([place], [place], [place], [place]) Address [address] [place] [address] Care Team Providers Care Developer Automatic Name Role Phone Unavailable Primary Care Provider Unavailabl e Encounter Details Date Type Department Care Team (Late st Contact Info) Description 04/28/2019 Transcribed Document [facility] Radiology [address] [place] [address] Provider, Luciano Bronson MD [...] On: 04/28/2019 17:13 EST by ROMELIA MCADAMS RN-Machine Grinder Initial Assessment I Previously Documented Living Environment : No qualifying data available. Living Situation : Home Patient Lives With : Spouse Is the Patient a Caregiver at Home? : No Emergency Contact #1 : Michelle Gonzalez Emergency Contact #1 cell Emergency Contact #1 Relationship : Emergency Contact #2 : Kandi Javed Emergency Contact #2 cell Emergency Contact #2 Relationship : daughter ROMELIA MCADAMS RN-Machine Grinder - 04/28/2019 17:13 EST Initial Assessment II Sensory and Motor Deficits : None ROMELIA MCADAMS RN-Machine Grinder - 04/28/2019 17:13 EST Discharge Needs I Anticipated Discharge Date : 04/30/2019 EST Anticipated Discharge To, CM : [facility] facility Current Home Treatment/Equipment : Current Home Treatment/Equipment No qualifying data available. Documentation Status Complete : Yes ROMELIA MCADAMS RN-Machine Grinder - 04/28/2019 17:13 EST Discharge Needs II Professional Skilled Services : Professional Skilled Services No qualifying data available. Needs Assistance with Transportation : Maybe Discharge Options Discussed with Patient : Short term rehabilitation ROMELIA MCADAMS RN-Machine Grinder - 04/28/2019 17:13 EST Narrative Note Narrative Note : 63yo female pt s/p L3-5 lami with resection of cauda equina tumor. CBR except when working with PT/OT. Met with pt, spouse, and daughter at bedside during rounds to discuss DCP. They request rehab at [facility] as pt's sister works there. CM also gave list of SNF in [facility] and [facility] with quality and resource information in case no bed or not in contract/network with pt's payor source. Referral sent to [facility] via [facility] and left message with liaison . NSY states pt will not be ready for dc for a couple more days. CM will follow. ROMELIA MCADAMS RN-Machine Grinder - 04/28/2019 17:13 EST documented in this encounter Plan of Treatment Not on file documented as of this encounter Visit Diagnoses Not on filedocumented in this encounter
--- OUTSIDE RECORDS SUMMARY | 2024-12-19 09:34 | XMS_ITS | Encounter Summary ---
Author Organization [employer] ([place], [place], [place], [place]) Address [address] [place] [address] Care Team Providers Care Chief Substation Operator Name Role Phone Unavailable Primary Care Provider Unavailabl e Encounter Details Date Type Department Care Team (Late st Contact Info) Description 05/01/2019 Transcribed Document [facility] Radiology [address] [place] [address] ProviderLuciano MD Social History Tobacco [...] - [facility] Aiyana ProviderMD - 05/01/2019 6:00 PM EST Chart Check - Review Order Profile Entered On: 05/01/2019 18:11 EST Performed On: 05/01/2019 17:00 EST by Nicolasa Abernathy RN Chart Check Powerplans Initiated/Discontinued as Appropriate : Yes All Active Orders Reviewed : Yes Nicolasa Abernathy RN - 05/01/2019 18:11 EST documented in this encounter Plan of Treatment Not on file documented as of this encounter Visit Diagnoses Not on filedocumented in this encounter
--- OUTSIDE RECORDS SUMMARY | 2024-12-19 09:34 | XMS_ITS | Encounter Summary ---
Author Organization [employer] ([place], [place], [place], [place]) Address [address] [place] [address] Care Team Providers Care Rolling Chair Pusher Name Role Phone Unavailable Primary Care Provider Unavailabl e Encounter Details Date Type Department Care Team (Late st Contact Info) Description 05/02/2019 Transcribed Document [facility] Radiology [address] [place] [address] ProviderLuciano MD Social History Tobacco [...] at home: Medicines ??? Take or apply vfeq-qsb-tsldsoi and prescription medicines only as told by [...] cannot use soap and water, use hand gasoline truck crane operator. ? Change your bandage as told [...] 12/26/2008 Document Revised: 08/24/2016 Document Reviewed: 09/06/2015 [employer] Interactive Patient Education ? 2019 Elsevier Inc. [...] and water are not available, use hand gasoline truck crane operator. ? Change your dressing as told [...] or a bad smell. Medicines ??? Take kxjc-bre-nasebbt and prescription medicines only as told by [...] urine clear or pale yellow. ? Take euaq-exh-wfcqvth or prescription medicines. ? Eat foods that [...] 09/03/2016 [employer] Interactive Patient Education ? 2019 [employer] Electronically signed by Luciano Arzate Conversion Stationary Engineer Refrigeration Cerner at 08/23/2022 11:18 AM CDT documented in this encounter Plan of Treatment Not on file documented as of this encounter Visit Diagnoses Not on filedocumented in this encounter
--- OUTSIDE RECORDS SUMMARY | 2024-12-19 09:34 | XMS_ITS | Encounter Summary ---
Author Organization [facility] Address [address] [place] [id number] Care Team Providers Care Diamond Mounter Name Role Phone Danelle Lennon APRN Primary Care Provider [phone] Reason for Visit * Reason Onset Date Comments Shortness of Breath 12/12/2016 Encounter Details Date Type Department Care Team ([facility] st Contact Info) Description 12/12/[address] [facility] INTERNAL MEDICINE [address] [place] [address] Madelaine Norman, MICROBIOLOGY LAB ASSISTANT [address] [place] [id number] Shortness of Breath Social History Tobacco Use [...] documented as of this encounter Care Teams Diamond Mounter Relationship Specialty Start Date End Date Danelle Lennon APRN [address] [place] [address] PCP - General Internal Medicine 06/18/24 documented as of this encounter
--- OUTSIDE RECORDS SUMMARY | 2024-12-19 09:34 | XMS_ITS | Encounter Summary ---
Author Organization [employer] ([place], [place], [place], [place]) Address [address] [place] [address] Care Team Providers Care Scientific Informatics Analyst Name Role Phone Unavailable Primary Care Provider Unavailabl e Encounter Details Date Type Department Care Team (Late st Contact Info) Description 05/01/2019 Transcribed Document [facility] Radiology [address] [place] [address] Provider, Luciano Bronson MD Social History Tobacco Use Types Packs/Day Years Used Date Smoking Tobacco: Never Assessed Comments Unknown Sex and Gender Information Value Date Recorded Sex Assigned at Not on file Legal Sex Female 6:01 PM CDT Gender Identity Not on file Sexual Orientation Not on file documented as of this encounter Miscellaneous Notes * Cerner Conversion Note - [facility] Aiyana ProviderMD - 05/01/2019 3:26 PM EST On Going Discharge Planning Entered On: 05/01/2019 14:26 EST Performed On: 05/01/2019 14:26 EST by MERLINE NEWMAN RN-Wellness AmbassadorWrap Turner Progress Note Discharge Arrangements : Patient Post-Acute Information Patient Name: GERTRUDIS DALY Gender: Female : 57 Age: 63 Years No Post-Acute Placement(s) Listed No Post-Acute Service(s) Listed No [place] Referral(s) Listed Discharge Options Discussed with Patient : Short term rehabilitation Barriers to Discharge Identified : Clinical Condition of Patient Barriers to Discharge Unresolved : Clinical Condition of Patient MERLINE NEWMAN RN-Wellness Ambassador - 05/01/2019 14:26 EST Narrative Progress Note Narrative Progress Note : [facility] precert still pend Historical Progress Note : Urology consulted for neurogenic bladder. Pt's choices of [facility] and [facility] are not in network with pt's payor source. D/W pt at bedside. She has chose [facility] now. Referral sent via Tc and informed Colleene. Precert intitated for acute. CM will continue to follow. ROMELIA MCADAMS RN-Wellness Ambassador - 04/29/19 15:26:05 MERLINE NEWMAN, RN-Wellness Ambassador - 05/01/2019 14:26 EST Electronically signed by Carito [facility] Conversion Thermo Processor Cerner at 08/23/2022 11:19 AM CDT documented in this encounter Plan of Treatment Not on file documented as of this encounter Visit Diagnoses Not on filedocumented in this encounter
--- NOTE | 2024-12-19 10:00 | US_ITS ---
FINAL REPORT CLINICAL HISTORY: elevated FIB 4 score FINDINGS: HEPATIC ULTRASOUND ELASTOGRAPHY EQUIPMENT: [employer]ran EPIQ Elite 5, C5-1 probe FINDINGS: The median liver stiffness value is 1.13 m/s (3.84 KPa) consistent with no-mild fibrosis. The IQR/med is 29%. IMPRESSION: Measurements suggestive of no-mild fibrosis. Note: In the setting of elevated 1iver function tests, post prandial state, and CHF the degree of liver fibrosis may be overestimated Liver Stiffness Value Recommendation (per SRU): <= 5 kPa (1.3 m/sec) High probability of being normal < 9 kPa (1.7 m/sec) In the absence of other known clinical signs, rules out cACLD. If there are known clinical signs, may need further test for confirmation 9-13 kPa (1.7-2.1 m/sec) Suggestive of cACLD but need further test for confirmation > 13 kPa (2.1 m/sec) Rules in cACLD > 17 kPa (2.4 m/sec) Suggestive of CSPH Note.-ARFI = acoustic radiation force impulse, cACLD = compensated advanced chronic liver disease, CSPH = clinically significant portal hypertension, NAFLD = non-alcoholic fatty liver disease. Reviewed, Interpreted and Dictated by Lise Schwartz MD Transcribed by Nelly Orozco Authenticated and . [facility]
== END 2024-12-19 23:59 | disposition home or self-care (01) ==
LOC: RAD 09:30
PROVIDERS: PCP Nurse Practitioner Family; Visit Provider Student in an Organized Health Care Education/Training Program
DX: K75.81 Nonalcoholic steatohepatitis (NASH) (principal); R93.2 Abnormal findings on diagnostic imaging of liver and biliary tract
CPT/HCPCS: 76981

== ENCOUNTER 2024-12-22 11:08 | Outpatient (CLI) | payer MEDICARE, SELFPAY ==
--- OUTSIDE RECORDS SUMMARY | 2024-12-22 11:11 | XMS_ITS | Encounter Summary ---
[facility] Address [address] [place] [address] Care Team Providers Care Air Conditioner Installer Helper Name Role Phone Danelle Lennon APRN Primary Care Provider + [phone] Reason for Visit * Reason Comments Med Refill Encounter Details Date Type Department Care Team (Late st Contact Info) Description 02/17/2023 Refill [facility]INE [address] [place] [address] Alex Davis MD [address] [place] [address] Postlaminectomy syndrome of lumbar region; [...] myelopathy documented in this encounter Care Teams Air Conditioner Installer Helper Relationship Specialty Start Date End Date Danelle Lennon APRN [address] [place] [address] [place] [address] PCP - General Internal Medicine 06/18/24 documented as of this encounter
--- OUTSIDE RECORDS SUMMARY | 2024-12-22 11:11 | XMS_ITS | Clinical Summary ---
Author Organization [facility] Address [address] [place] [address] Care Team Providers Care Tire Worker Name Role Phone Danelle Lennon APRN Primary [...] - 29.0 mg/g 06/18/2024 12:51 AM EDT [facility] Creatinine, Urine 113.4 mg/dL 06/18/2024 12:51 AM EDT [facility] Microalbumin, Urine 1.3 mg/dL 06/18/2024 12:51 AM EDT [facility] Urine Urine specimen obtained by clean catch procedure / Unknown Collection / Unknown 06/17/2024 3:48 PM EDT 06/17/2024 3:48 PM EDT Bridget VILLAGOMEZ-C URINE ORDERABLES Final Resu lt [facility]
[address] [place] [address], * Colonoscopy, Scan (08/20/2023) us Alex Davis [...] - 05/31/2023 3:08 AM EST Performed at: [address] [place] [id number] Reproducer: Lane Haile MD, Phone: [phone] Patient Fasting: Y us Alex Davis MD LAB BLOOD ORDERABLES Final Resu lt [facility] (AMBULATORY) [address] [id number], [facility] [address] [place] [address], [place] [phone] * (ABNORMAL) Lipid Panel (05/30/2023 10:50 AM [...] - 05/31/2023 3:08 AM EST Performed at: [address] [place] [id number] Reproducer: Lane Haile MD, Phone: [phone] Patient Fasting: Y Alex Davis MD LAB BLOOD ORDERABLES Final Resu lt [facility] ([facility]) [address] [place] [address], [facility] [address] [place] [address], [place] [phone] * SCANNED - EYE EXAM (06/23/2021) Anatomical Region Laterality Modality Other Roc Tracey PA-C CHART REVIEW TABS Final Result * Hepatitis Panel, Acute (12/26/2017 2:04 PM EDT) Hepatitis B Surface Ag Non-Reacti ve Non-Reacti ve 12/26/2017 7:06 PM EDT [facility] Hep A IgM Non-Reacti ve Non-Reacti ve 12/26/2017 7:06 PM EDT [facility] Comment:Results may be false ly decreased if patient taking Biotin. Hep B C IgM Non-Reacti ve Non-Reacti ve 12/26/2017 7:06 PM EDT [facility] Comment:Results may be false ly decreased if patient taking Biotin. Hepatitis C Ab Non-Reacti ve Non-Reacti ve 12/26/2017 7:06 PM EDT [facility] Blood Venipuncture / Unknown 12/26/2017 2:04 PM EDT 12/26/2017 2:04 PM EDT us Guerline Randall DRILLING FIELD OPERATOR LAB BLOOD ORDERABLES Final Res ult [facility]
[address] [place] [address], from Last 3 Months or Most Recently Relevant to Health Maintenance Insurance [facility] Medicare [employer] PPO Care Teams Tire Worker Relationship Specialty Start Date End Date Danelle Lennon APRN [address] [place] [address] [place] [address] PCP - General Internal Medicine 06/18/24
--- OUTSIDE RECORDS SUMMARY | 2024-12-22 11:11 | XMS_ITS | Encounter Summary ---
[facility] Address [address] [place] [id number] Care Team Providers Care Aircraft Structure Mechanic Name Role Phone Danelle Lennon APRN Primary Care Provider [phone] Reason for Visit * Reason Onset Date Comments Shortness of Breath 12/12/2016 Encounter Details Date Type Department Care Team ([facility] st Contact Info) Description 12/12/2016 Telephone [facility] INTERNAL MEDICINE [address] [place] [address] Madelaine Norman, DIRECTOR IMAGING [address] [id number] Shortness of Breath Social History Tobacco Use [...] documented as of this encounter Care Teams Aircraft Structure Mechanic Relationship Specialty Start Date End Date Danelle Lennon APRN [address] [place] [address] PCP - General Internal Medicine 06/18/24 documented as of this encounter
--- OUTSIDE RECORDS SUMMARY | 2024-12-22 11:11 | XMS_ITS | Encounter Summary ---
[facility] Address [address] [place] [address] Care Team Providers Care Milk Sampler Name Role Phone Danelle Lennon APRN Primary Care Provider + [phone] Reason for Visit * Reason Comments Med Refill Encounter Details Date Type Department Care Team (Late st Contact Info) Description 10/08/2023 Refill [facility]INE [address] [place] [address] Alex Davis MD [address] [place] [address] Anxiety and depression; Postlaminectomy syndrome [...] documented as of this encounter Care Teams Milk Sampler Relationship Specialty Start Date End Date Danelle Lennon APRN [address] [place], [place] [id number] PCP - General Internal Medicine 06/18/24 documented as of this encounter
--- OUTSIDE RECORDS SUMMARY | 2024-12-22 11:11 | XMS_ITS | Clinical Summary ---
Author Organization [facility] Address [address] [place] [address] Care Team Providers Care Electronics Commodity Manager Name Role Phone Ev Augustin VASILE Primary Care Provider [phone] Allergies Active Allergy Reactions Criticality Noted Date [...] Density Scan 1955 [facility]-Infant/Child/Adol SDOH Screenings 1955 XMI-NNHTD-15 Vaccine (#1) 1961 [facility]- SDOH Screenings 1974 [...] IgM Negative Negative 11/08/2023 4:13 PM EDT [facility] Hepatitis B Core Antibody IgM Negative Negative 11/08/2023 4:13 PM EDT [facility] Blood Venous blood specimen / Unknown Venipuncture / Unknown 11/08/2023 1:57 PM EDT 11/08/2023 2:01 PM EDT us Denis Hudson APRN LAB BLOOD ORDERABLES Final Res ult Performing Organization Address City/State/[facility] Co de Phone Number HEALTH[facility]ARE [facility] [address] [place] [address] from Last 3 Months or Most Recently Relevant to Health Maintenance Insurance Care Teams Electronics Commodity Manager Relationship Specialty Start Date End Date Ev Augustin APRN [address] [place] [address] PCP - General 08/13/20
--- OUTSIDE RECORDS SUMMARY | 2024-12-22 11:11 | XMS_ITS | Patient Health Record ---
Author Organization [facility] Address [address] [address] Care Team Providers Care Brick Kiln Worker Name Role Phone Paddy Ledesma DO Unavailable [phone] Allergies Allergen (clinical drug ingredient) Drug/Non Drug [...] End Date Status Ciprofloxacin HCl 500 MG Tablet Oral; Duration: 14 Days Active Lantus SoloStar 100 UNIT/ML Solution Pen-injector Subcutaneous; Duration: 100 Days Active Azithromycin 250 MG Tablet Oral; Duration: 5 Days Active traZODone HCl 50 MG Tablet Oral; Duratio n: 30 Days Active Ezetimibe 10 MG Tablet Oral; Duration: 9 0 Days Active NIFEdipine ER 60 MG Tablet Extended Release 24 Hour Oral; Duration: 90 Days Active Movantik 25 MG Tablet 1 tablet in the morning Orally Once a day; Duration: 90 days Active Janumet XR 100-1000 MG Table t Extended Release 24 Hour Oral; Duration: 90 Days Active Losartan Potassium 100 MG Tablet Oral; Duration: 90 Days Active Omeprazole 40 MG Capsule Delayed Release Oral; Duration: 90 Days Active traMADol HCl 50 MG Tablet Oral; Duration : 30 Days Active Meloxicam 7.5 MG Tablet Oral; Duration: 90 Days Active methylPREDNISolone 4 MG Tabl et Therapy Pack Oral; Duration: 6 Days Activ e rOPINIRole HCl 1 MG Tablet Oral; Duratio n: 90 Days Active Topiramate 50 MG Tablet Oral; Duration: 90 Days Active Atorvastatin Calcium 40 MG Tablet Oral; Duration: 90 Days Active HumaLOG KwikPen 100 UNIT/ML Solution Pen-injector Subcutaneous; Duration: 75 Days Active Problems Problem Type SNOMED Code ICD Code Onset Dates Problem Status W/U Status Risk Notes Problem Type 2 diabetes mellitus with other specified complication (E11.69) Active confirmed Problem Gastroparesis (219365382) Gastroparesis (K31.84) Active confirmed I suspect that [...] and after review of her records. Problem Long-term current use of insulin (314856579) intermediate (current) use of insulin (Z79.4) Active confirmed Problem Drug-induced constipation (68332007) Drug induced constipation (K59.03) Active confirmed Problem Incontinence of feces (66537710) Incontinence of feces, unspecified fecal incontinence type (R15.9) Active confirmed Problem Chronic constipation with overflow (39823148) Chronic constipation with overflow (K59.09) Active confirmed Plan Of Treatment No Information Insurance Providers Payer Name Payer Address Payer Phone Subscriber Number Group Number Insured Name Patient Relationship to Insured Coverage Start Date Coverage End Date [facility] [address] [address] [place], [place] [id number] FLORIAN GONZALEZ Self - patient is the insured Medical (General) History Medical History History ICD Code Diabetes mellitus, type II Hypertension Surgical History Surgery Date(Month/Year) Tubal Ligation spinal nerve sheath tumor
--- OUTSIDE RECORDS SUMMARY | 2024-12-22 11:11 | XMS_ITS | Clinical Summary ---
Author Organization [facility] Address [address] [facility] [address] [place] [address] Care Team Providers Care Education Administrator Name Role Phone CharliBenitaEv RINA Primary Care Provider [phone] Allergies Active Allergy Reactions Criticality Noted Date [...] every 8 (eight) hours if needed. Active HYDROcodone-iian taminophen (Baxter) 5-325 MG tablet Take 1 tablet by [...] Visit [facility] [address] [place] [address] Nasrin Roque PA [address] [place] [address], [address] [place] [address] Health Maintenance Due Date Last [...] Insurance [employer] MED[employer] ADVANTAGE Care Teams Education Administrator Relationship Specialty Start Date End Date Ev Augustin NP [address] [place] [address] PCP - General 12/26/19
--- OUTSIDE RECORDS SUMMARY | 2024-12-22 11:11 | XMS_ITS | Encounter Summary ---
[facility] Address [address] [place] [address] Care Team Providers Care Value Engineer Name Role Phone Danelle Lennon APRN Primary Care Provider [phone] Encounter Details Date Type Department Care Team (Late st Contact Info) Description 06/18/2024 Results Follow-Up [facility] [address] [address] Bridget Valdez PA-C [address] [address] Social History Tobacco Use Types Packs/Day Years [...] documented as of this encounter Care Teams Value Engineer Relationship Specialty Start Date End Date Danelle Lennon APRN [address] [place] [address] PCP - General Internal Medicine 06/18/24 documented as of this encounter
--- OUTSIDE RECORDS SUMMARY | 2024-12-22 11:11 | XMS_ITS | Encounter Summary ---
Author Organization [facility] Address [address] [place] [address] Care Team Providers Care Secondary Set Up Man Name Role Phone Danelle Lennon APRN Primary Care Provider [phone] Encounter Details Date Type Department Care Team (Late st Contact Info) Description 06/20/2024 Results Follow-Up [facility] [address] Ad Mazariegos MD [address] [place] [address] Social History Tobacco Use Types Packs/Day Years [...] as of this encounter Care Teams Secondary Set Up Man Relationship Specialty Start Date End Date Danelle Lennon APRN [address] [address] [place] [address] PCP - General Internal Medicine 06/18/24 documented as of this encounter
[2024-12-22 12:57] LABS: Cholesterol 168 mg/dl (140-200); HDL Cholesterol 64 mg/dl (40-60); Triglycerides 127 mg/dl (30-150)
[2024-12-22 12:58] LABS: Chloride 100 mmol/L (98-107); Potassium 4.3 mmoL/L (3.5-5.1); Sodium 142 mmol/L (136-145)
[2024-12-22 13:01] LABS: Blood Urea Nitrogen 19 mg/dl (7-17); Creatinine,Serum 0.60 mg/dl (0.52-1.04); Estimated Glomerular Filt Rate 100 ml/min (>60); GFR (African American) 121 ML/MIN (>60)
[2024-12-22 13:02] LABS: Anion Gap 12.3 mEq/L (5-15); Calcium 9.7 mg/dl (8.4-10.2); Carbon Dioxide 34 mmol/L (22.0-30.0); Glucose 87 mg/dl (74-100)
[2024-12-22 13:27] LABS: Thyroid Stimulating Hormone 3.79 uIU/mL (0.465-4.68)
[2024-12-22 13:51] LABS: Free T4 (Free Thyroxine) 1.08 ng/dl (0.78-2.19)
== END 2024-12-22 23:59 | disposition home or self-care (01) ==
LOC: LAB 11:09
PROVIDERS: Internal Medicine; PCP Nurse Practitioner Family; Visit Provider Student in an Organized Health Care Education/Training Program
DX: E03.9 Hypothyroidism, unspecified (principal); G47.9 Sleep disorder, unspecified; E78.5 Hyperlipidemia, unspecified; R40.0 Somnolence; R06.02 Shortness of breath
CPT/HCPCS: 36415; 80048; 80061; 84439; 84443

== ENCOUNTER 2025-03-09 13:59 | Outpatient (CLI) | payer MEDICARE, SELFPAY ==
--- NOTE | 2025-03-09 14:01 | XR_ITS ---
PROCEDURE INFORMATION: Exam: XR Left Foot Exam date and time: 03/09/2025 2:03 PM Age: 69 years old Clinical indication: Left; PT twisted foot, felt a tearing sensation, heard a pop pain plantar surface, anterior half; Additional info: L foot pain, injury TECHNIQUE: Imaging protocol: Radiologic exam of the left foot. Views: 3 or more views. Total images: 3 COMPARISON: CR XR FOOT WT BEARING LT 3V 09/15/2020 7:58 AM FINDINGS: Bones/joints: Bones are osteopenic. Calcaneal spurs are present. No evidence of acute fracture or dislocation. Soft tissues: Normal. IMPRESSION: 1. Bones are osteopenic. 2. No evidence of acute fracture or dislocation.
== END 2025-03-09 23:59 ==
LOC: RAD 14:00
PROVIDERS: PCP Nurse Practitioner Family; Visit Provider Student in an Organized Health Care Education/Training Program
DX: S99.922A Unspecified injury of left foot, initial encounter (principal); M77.32 Calcaneal spur, left foot; M85.872 Other specified disorders of bone density and structure, left ankle and foot; X50.9XXA Other and unspecified overexertion or strenuous movements or postures, initial encounter
CPT/HCPCS: 73630

== ENCOUNTER 2025-03-16 13:10 | Day surgery (SDC) | payer MEDICARE, SELFPAY ==
--- NOTE | 2025-03-11 07:16 | EXP.HP ---
History of Present Illness *Admission Date: 03/16/25 *History of present illness: Mrs. Gonzalez is a 69-year-old female who is here for diagnostic EGD. She does have a history of diabetic gastroparesis and is followed at the [place] [facility]. She is on domperidone. She is still struggling with a lot of heartburn and reflux symptoms with voice weakness. She did see an ENT specialist and had laryngoscopy. She is on split dose omeprazole twice daily. She also has recurrent dysphagia and has had prior EGD with dilation. She did undergo colonoscopy with Dr. Henry Diaz in August 2023 and the examination was normal. She was given 10-year surveillance interval. The patient does have outlet dysfunction constipation and has been referred for pelvic floor physical therapy. The examination is deemed medically necessary for diagnostic EGD. The patient has been seen, interviewed and examined prior to the procedure by both myself and the anesthesia provider. [facility] Disclaimer: The information contained in this section may have been updated after the patient was seen, as this information can be updated by other users. Medical History Pulmonary hypertension Allergic rhinitis Asthma Other chest pain Healthcare maintenance Diabetes mellitus (HFpEF) heart failure with preserved ejection fraction SOB (shortness of breath) on exertion Cough Edema Sleep apnea Preoperative clearance Palpitations Hypertension Chest pain Dizziness Edema of lower extremity Restless sleeper Somnolence, daytime Hyperlipidemia Hypertensive heart disease Surgical History S/P cardiac cath Hx of elbow surgery History of hysterectomy History of back surgery Family History Other Family history of diabetes mellitus type II Family history of hypertension Family hx-kidney disease Social History Smoking Status: Never smoker alcohol intake: former substance use type: denies use current occupational status: disabled Travel in the last 8 weeks?: None household members: spouse housing: house lives independently: Yes marital status: education level: college current occupational exposures/hazards: No caffeine: Yes special kris needs: No agree to transfusion: No do you feel safe at home: Yes victim of physical abuse: No victim of emotional abuse: No victim of sexual abuse: No would you like helpful sources: No Have you lived/traveled outside US in past 30 days?: No Contact w/someone who lives/traveled outside US past 30 days?: No Exposure to someone with infectious disease in past 14 days?: No Do you have a fever (greater than 100.4 F or 38 C)?: No Have you tested positive for COVID-19?: No Exposed to someone with COVID-19 in past 14 days?: No Do you have a sore throat?: No Do you have a cough?: No Do you have any weakness?: No Are you experiencing any nausea/vomitting?: Yes Do you have any diarrhea?: No Are you experiencing any unusual bleeding?: No Do you have any muscle aches/pain?: No Do you have any abdominal pain?: No Are you experiencing loss of taste or smell?: No Other Medical History Have you received the Flu Vaccine for this season: No Have you received the Pneumonia Vaccine: Yes Review of Systems Review of Systems Review of systems (narrative): Negative *Cardiovascular Comments: Negative *Gastrointestinal Comments: Negative *Genitourinary Comments: Negative *Musculoskeletal Comments: Negative *Neurologic Comments: Negative Meds Home Medications and Allergies Home Medications ?Medication ?Instructions ?Recorded ?Confirmed ?Type cetirizine 10 mg capsule (Zyrtec) 10 mg PO DAILY PRN allergies 05/01/22 03/16/25 History albuterol 90 mcg-budesonide 80 2 inh inhalation 6XD PRN shortness 11/14/23 03/16/25 Rx mcg/actuation HFA aerosol inhaler of breath or wheezing #5.9 grams (Airsupra) cholecalciferol (vitamin D3) 125 125 mcg PO DAILY 05/09/24 03/16/25 History mcg (5,000 unit) capsule magnesium 250 mg tablet 250 mg PO DAILY 05/09/24 03/16/25 History naloxegol 25 mg tablet (Movantik) 25 mg PO DAILY 05/09/24 03/16/25 History potassium 99 mg tablet 99 mg PO DAILY 05/09/24 03/16/25 History omeprazole 40 mg capsule,delayed See Rx Instructions .Route 10/06/24 03/16/25 Rx release .COMPLEX #90 caps levothyroxine 25 mcg tablet See Rx Instructions .Route 10/14/24 03/16/25 Rx Held on 11/18/24. .COMPLEX #90 tabs Instructions: Home Medication placed on hold at Doctor's office pen needle, diabetic 32 gauge x #300 ea 10/14/24 03/16/25 Rx 5/32 ropinirole 1 mg tablet See Rx Instructions .Route 10/14/24 03/16/25 Rx .COMPLEX #90 tabs trazodone 50 mg tablet See Rx Instructions .Route 10/14/24 03/16/25 Rx .COMPLEX #90 tabs linagliptin 5 mg tablet (Tradjenta) See Rx Instructions .Route 10/15/24 03/16/25 Rx .COMPLEX #90 tabs Farxiga 10 mg tablet 10 mg PO DAILY #90 tabs 10/24/24 03/16/25 Rx (dapagliflozin propanediol) bumetanide 1 mg tablet 1 mg PO .COMPLEX 90 days #270 tabs 10/24/24 03/16/25 Rx isosorbide mononitrate 30 mg 30 mg PO DAILY #90 tabs 10/24/24 03/16/25 Rx tablet,extended release 24 hr insulin lispro 100 unit/mL 16 unit SQ TID 11/07/24 03/16/25 History subcutaneous pen (Humalog KwikPen (U-100) Insulin) meloxicam 7.5 mg tablet See Rx Instructions .Route 11/17/24 03/16/25 Rx .COMPLEX #90 tabs tramadol 50 mg tablet 50 mg PO Q8H PRN Pain #30 tabs 12/15/24 03/16/25 Rx budesonide-formoterol HFA 160 See Rx Instructions .Route 12/22/24 03/16/25 Rx mcg-4.5 mcg/actuation aerosol .COMPLEX #30.6 grams inhaler prucalopride 2 mg tablet See Rx Instructions .Route 01/15/25 03/16/25 Rx .COMPLEX #90 tabs vonoprazan 10 mg tablet (Voquezna) 10 mg PO DAILY #30 tabs 02/06/25 03/16/25 Rx plecanatide 3 mg tablet (Trulance) 3 mg PO DAILY #90 tabs 02/09/25 03/16/25 Rx Lantus Solostar U-100 Insulin 100 55 unit (0.55 mL) SQ QAM #20 mL 02/12/25 03/16/25 Rx unit/mL (3 mL) subcutaneous pen (insulin glargine) evolocumab 140 mg/mL subcutaneous 140 mg SQ Q2W #2 mL 02/16/25 03/16/25 Rx pen injector (Basilia Al) bethanechol chloride 50 mg tablet 50 mg PO BID bladder control 03/09/25 03/16/25 History desvenlafaxine succinate 50 mg 50 mg PO DAILY 03/09/25 03/16/25 History tablet,extended release 24 hr sacubitril 97 mg-valsartan 103 mg 1 tab PO DAILY 03/09/25 03/16/25 History tablet hydroxyzine pamoate 25 mg capsule 25 mg PO TID PRN anxiety #90 caps 03/11/25 03/16/25 Rx (Vistaril) blood-glucose sensor (Dexcom G7 #9 ea 03/13/25 03/16/25 Rx Sensor device) nifedipine 60 mg tablet,extended 60 mg PO DAILY #30 tabs 03/16/25 03/16/25 Rx release 24 hr New Prescriptions to Start Prescriptions: Allergies Allergy/AdvReac Type Severity Reaction Status Date / Time amlodipine (AMLODIPINE) Allergy Intermediate Other Verified 03/16/25 13:36 Beta-Blockers Allergy Intermediate Cough Verified 03/16/25 13:36 (Beta-Adrenergic Bloc cyclobenzaprine Allergy Intermediate Other Verified 03/16/25 13:36 (CYCLOBENZAPRINE) hydrochlorothiazide Allergy Intermediate Other Verified 03/16/25 13:36 (HYDROCHLOROTHIAZIDE) latex (LATEX) Allergy Intermediate Rash Verified 03/16/25 13:36 pioglitazone (From ACTOS) Allergy Intermediate itching Verified 03/16/25 13:36 spironolactone Allergy Intermediate Other Verified 03/16/25 13:36 (SPIRONOLACTONE) Penicillins Allergy Mild itching Verified 03/16/25 13:36 atorvastatin (From Lipitor) AdvReac Severe muscle Verified 03/16/25 13:36 aches rosuvastatin (From Crestor) AdvReac Intermediate myalgia Verified 03/16/25 13:36 Exam *Routine HEENT Exam Head: Present normocephalic Eye: Present EOMI and PERRL ENT: Present mucous membranes moist *Routine Neck Exam Neck: Present supple *Routine Respiratory Exam Respiratory: Present CTA bilaterally *Routine Cardiovascular Exam Cardiovascular: Present RRR *Routine Abdominal Exam Abdominal: Present soft and normoactive bowel sounds; Absent tenderness *Routine Rectal Exam Rectal:: deferred *Routine Genitalia Exam Genitalia:: deferred *Routine Extremities Exam Extremities: Absent cyanosis, clubbing or edema *Routine Skin Exam Skin: Present warm; Absent rash *Routine Neurological Exam Neurological: Present alert and oriented X3 Assessment and Plan *Assessment and plan (1) Bloating: Status: Acute Category: Medical Code(s): R14.0 - Abdominal distension (gaseous) (2) Dysphagia: Status: Acute Category: Medical Code(s): R13.10 - Dysphagia, unspecified (3) Heartburn: Status: Acute Category: Medical Code(s): R12 - Heartburn (4) GERD (gastroesophageal reflux disease): Status: Acute Category: Medical Code(s): K21.9 - Gastro-esophageal reflux disease without esophagitis (5) Gastroparesis diabeticorum: Status: Acute Category: Medical Code(s): E11.43 - Type 2 diabetes mellitus with diabetic autonomic (poly)neuropathy; K31.84 - Gastroparesis Plan A/P: 1. Dysphagia with ongoing intractable heartburn and GERD with history of diabetic gastroparesis is the preprocedural diagnosis. The patient will be anesthetized/sedated using MAC sedation. The patient has been seen and examined. Cardiac and lung assessment prior to the examination is stable. Proceed with planned diagnostic EGD.
[2025-03-13 15:22] VITALS: BMI 34.2
--- NOTE | 2025-03-16 06:50 | HMH.PROCNOTE ---
[facility] Procedure Note Date: 03/16/25 Time: 14:34 Procedure Note:: Upper Endoscopy Procedure Report: Esophagogastroduodenoscopy with cold biopsies and TTS balloon dilation Endoscopost: Sebastian Streeter II, MD Referring Physician: DEBORAH Can Date of Procedure: March 16, 2025 Equipment: Olympus GIF-1100 standard upper endoscope Sedation: MAC sedation Indications: Mrs. oGnzalez is a 69-year-old female who is here for diagnostic EGD. She does have a history of diabetic gastroparesis and is followed at the [place] [facility]. She is on domperidone. She is still struggling with a lot of heartburn and reflux symptoms with voice weakness. She did see an ENT specialist and had laryngoscopy. She is on split dose omeprazole twice daily. She also has recurrent dysphagia and has had prior EGD with dilation. She did undergo colonoscopy with Dr. Henry Diaz in August 2023 and the examination was normal. She was given 10-year surveillance interval. The patient does have outlet dysfunction constipation and has been referred for pelvic floor physical therapy. The examination is deemed medically necessary for diagnostic EGD. Procedure: Prior to the procedure, a history and physical exam was performed, and patient's medications and allergies were reviewed. The risks, benefits and alternatives of the sedation and procedure were discussed with the patient. All questions were answered and informed consent was obtained. The patient was brought to the procedure room. Patient identification and proposed procedure were verified by the physician and the nurse. The patient was placed in a left lateral decubitus position and the scope was passed under direct vision. Throughout the procedure, the patient's blood pressure, pulse, and oxygen saturations were monitored continuously. The upper GI endoscopy was accomplished without difficulty. The patient tolerated the procedure well. Findings: The scope was passed directly into the upper esophagus and advanced to the third portion of the duodenum. The post bulbar duodenum and duodenal bulb were normal with normal mucosa and conniventes. 2 cold biopsies were taken from the second portion of the duodenum for the disaccharidase assay. The scope was withdrawn through a normal duodenal bulb and pylorus into the stomach. There was bile reflux with linear reactive gastropathy of the antrum and mild chronic gastritis of the body and fundus of the stomach. Cold biopsies were taken along the lesser curvature for H. pylori. Upon retroflexion there was no hiatal hernia. The scope was then withdrawn into the esophagus. There was no evidence of reflux esophagitis or Atkins's. There were no rings, strictures, webs, furrowing, corrugation or inlet patch. There were tertiary contractions and evidence of mild esophageal dysmotility. The entire esophagus was dilated to 60 Hungarian/20 mm with a TTS hydrostatic balloon. There was mild resistance at the cricopharyngeus. The remainder of the esophageal mucosa was normal. Impression: 1. Nonerosive GERD with mild esophageal dysmotility and cricopharyngeal spasm 2. Bile reflux with linear reactive gastropathy and mild chronic gastritis Plan: I will follow-up the biopsies and disaccharidase assay and discuss the findings with the patient and family. She does have primarily bile reflux with esophageal dysmotility. We will discuss treatment options.
[2025-03-16 13:39] VITALS: BP 138/81; PULSE 97; RESP 16; TEMP 36.2; O2SAT 98; BMI 34.2
[2025-03-16] MEDS: LACTATED RINGERS 1000ML 1,000 ML 50 ML IV (13:54)
[2025-03-16 13:58] LABS: POC Glucose,Bedside 78 gm/dL (70-110)
--- NOTE | 2025-03-16 14:03 | EXP.ANES.CKL ---
[facility] Disclaimer: The information contained in this section may have been updated after the patient was seen, as this information can be updated by other users. Medical History Pulmonary hypertension Allergic rhinitis Asthma Other chest pain Healthcare maintenance Diabetes mellitus (HFpEF) heart failure with preserved ejection fraction SOB (shortness of breath) on exertion Cough Edema Sleep apnea Preoperative clearance Palpitations Hypertension Chest pain Dizziness Edema of lower extremity Restless sleeper Somnolence, daytime Hyperlipidemia Hypertensive heart disease Surgical History S/P cardiac cath Hx of elbow surgery History of hysterectomy History of back surgery Family History Other Family history of diabetes mellitus type II Family history of hypertension Family hx-kidney disease Social History Smoking Status: Never smoker alcohol intake: former substance use type: denies use current occupational status: disabled Travel in the last 8 weeks?: None household members: spouse housing: house lives independently: Yes marital status: education level: college current occupational exposures/hazards: No caffeine: Yes special kris needs: No agree to transfusion: No do you feel safe at home: Yes victim of physical abuse: No victim of emotional abuse: No victim of sexual abuse: No would you like helpful sources: No Have you lived/traveled outside US in past 30 days?: No Contact w/someone who lives/traveled outside US past 30 days?: No Exposure to someone with infectious disease in past 14 days?: No Do you have a fever (greater than 100.4 F or 38 C)?: No Have you tested positive for COVID-19?: No Exposed to someone with COVID-19 in past 14 days?: No Do you have a sore throat?: No Do you have a cough?: No Do you have any weakness?: No Are you experiencing any nausea/vomitting?: Yes Do you have any diarrhea?: No Are you experiencing any unusual bleeding?: No Do you have any muscle aches/pain?: No Do you have any abdominal pain?: No Are you experiencing loss of taste or smell?: No [facility] Anesthesia Checklist Patient Identification Patient Identification: Arm Band and Verbal (Name & ) Structural Data Admitted From: Home Planned Operative Procedure/s: EGD Consent for Planned Operative Procedure(s) Verified: Yes Verified Documents: Surgical Consent and History and Physical NPO Status Verified Time NPO: 00:00 Additional verifications Anesthesia Reactions: No Hx Blood Transfusions: No Blood Transfusion Reaction: No Previous Colonoscopy: Yes Airway Assessment Dentition: Good Dentition Neurological Assessment Level of Consciousness: Awake, Alert and Appropriate Hx Seizures: No Numbness or tingling in extremities: No Anesthesia Plan Anesthesia Risk discussed: Yes Anesthesia Plan: Verified ASA Class: III Anesthesia Type: MAC
[2025-03-16 14:36] VITALS: BP 130/83; PULSE 97; RESP 18; TEMP 36.2; O2SAT 91
[2025-03-16 14:46] VITALS: BP 144/83; PULSE 92; O2SAT 92
[2025-03-16 14:56] VITALS: BP 137/67; PULSE 91; O2SAT 92
[2025-03-16 15:06] VITALS: BP 121/62; PULSE 70; O2SAT 94
[2025-03-20 15:01] LABS: Interpretation Notes (.); Lactase 6.11 (>/= 14.0); Maltase 304.85 (>/= 110.0); Palatinase 23.87 (>/= 8.5); Reference Notes (.); Sucrase 82.17 (>/= 25.0)
== END 2025-03-16 15:06 | disposition home or self-care (01) ==
PROVIDERS: PCP Nurse Practitioner Family; Visit Provider Internal Medicine Gastroenterology
PROC: 0DJ08ZZ Inspection of Upper Intestinal Tract, Via Natural or Artificial Opening Endoscopic (ICD-10-PCS; CPT 43239; principal; 2025-03-16 14:30)
DX: K21.9 Gastro-esophageal reflux disease without esophagitis (principal); K31.89 Other diseases of stomach and duodenum; K29.50 Unspecified chronic gastritis without bleeding; K22.4 Dyskinesia of esophagus; E11.43 Type 2 diabetes mellitus with diabetic autonomic (poly)neuropathy; K31.84 Gastroparesis; J45.909 Unspecified asthma, uncomplicated; I11.0 Hypertensive heart disease with heart failure; I50.30 Unspecified diastolic (congestive) heart failure; I27.20 Pulmonary hypertension, unspecified; E11.9 Type 2 diabetes mellitus without complications; Z79.4 Long term (current) use of insulin; Z79.84 Long term (current) use of oral hypoglycemic drugs; Z90.710 Acquired absence of both cervix and uterus; Z88.0 Allergy status to penicillin; Z88.8 Allergy status to other drugs, medicaments and biological substances
CPT/HCPCS: 43239; 43249; 82657; 82962; 88305; C1726; J2003; J2704; J7120

== ENCOUNTER 2025-03-19 09:48 | Outpatient (CLI) | payer MEDICARE, SELFPAY ==
--- OUTSIDE RECORDS SUMMARY | 2025-03-06 18:48 | XMS_ITS | Continuity of Care Document ---
Author Organization [facility] Phone Care Team Providers Care Director Cardiology Name Role Phone SILVESTRE SHEA Primary Care REYNALDO TRIVEDI Unavailable REYNALDO TRIVEDI Admitting REYNALDO TRIVEDI Primary Attending [phone] ALLERGIES AND ADVERSE REACTIONS ALLERGIES AND ADVERSE REACTIONS Code System Allergy Substance Adverse Reaction Date Reaction (Severity) Comment Status Reported By Updated By LATEX (Free Text Allergy) Rash (Moderate) active [id number] on June 06, 2023 8:02:28 PM [facility] [id number] SNOMED CT BETA ADRENERGIC BLOCKERS Adverse reaction to substance unknown active [id number] on June 06, 2023 8:02:28 PM [place] SPIRONOLACTONE Adverse reaction to substance unknown active [id number] on June 06, 2023 8:02:[place] [address] RXNorm ACTOS Adverse reaction to substance itching active [id number] on June 06, 2023 8:02:29 PM [place] 15[address]75[address] [place] [address] PENICILLINS Adverse reaction to substance unknown active [id number] on June 06, 2023 8:02:28 [place] 644[place]96[place] CT PENICILLINS Adverse reaction to substance unknown active [id number] on June 06, 2023 8:02:28 PM [place] 5487 RXNorm HYDROCHLOROTHI AZIDE Adverse reaction to substance unknown active IQK3406 on June 06, 2023 8:02:[place] [address] RXNorm AMLODIPINE Adverse reaction to substance unknown active [id number] on June 06, 2023 8:02:29 PM [place] 6809 RXNorm metFORMIN Adverse reaction to substance Unknown active [id number] on December 29, 2024 3:49:50 PM [place] FAMILY HISTORY RELATION: Father Status: Cause of : Gunshot wound Age at : 46 SNOMED-CT Diagnosis Age At Onset Information not available RELATION: Mother Status: Cause of : Unknown Age at : 70 SNOMED-CT Diagnosis Age At Onset [id number] Chronic obstructive lung disease 353752127 Chronic kidney disease 83258724 End-stage renal disease 52145615 Hypertensive disorder 57522996 Diabetes mellitus MEDICATIONS HOME MEDICATIONS Status RXNORM NDC Medication Dose Route Frequency Dates Comments Reported By Updated By Drug Treatment Unknown DISCHARGE MEDICATIONS Status RXNORM NDC Medication Dose Route Frequency Dates Dis pense Data Comments Physician Updated By No Discharge Medication Info rmation Available INPATIENT MEDICATIONS Status RXNORM NDC Medication Dose Route Frequency Rat e Quantity Dates Indication Dispense Data Comments Physician Updated By No Inpatient Medication Info rmation Available SOCIAL HISTORY SOCIAL HISTORY - Smoking Status SNOMED-CT Social History Element Description Effective Dates Offered Cessation Comment Updated By [id number] Historical Tobacco smoking status Never Smoked [id number] on August 17, 2023 12:49:53 PM [facility] SOCIAL HISTORY - Gender Sex: Female SOCIAL HISTORY - Status : status i nformation is not available Intention in Next Year: intention information is not available SOCIAL HISTORY - Assessments Code System Description Status Date Value of Assessment Updated By Comment Assessment Information is no t available SOCIAL HISTORY - [place] Affiliation [place] information is not av ailable SOCIAL HISTORY - Legal Sex Legal Sex : Female (finding) SOCIAL HISTORY - Sexual Behavior Sexual Orientation Gender Identity SNOMED-CT Description SNO MED -CT Description Activity Level No of Partners Partner Type UpdatedBy Information is not available SOCIAL HISTORY - Occupation Occupation information is no t available ENCOUNTERS ENCOUNTER INFORMATION Reason for Visit OV Admission February 25, 2025 2:07:[address] [address] Discharge February 25, 2025 2:07:00 PM [facility] DISCHARGED TO HOME OR SELF CARE ENCOUNTER DIAGNOSES Notes information is not florinda ilable. Code System Diagnosis Onset Date Diagnosis information is not available. ABSTRACT DIAGNOSES Code System Diagnosis Updated By Abatement Date M70.61 ICD10 TROCHANTERIC BUR SITIS, RIGHT HIP [id number] on March 06, 2025 11:47:30 PM [facility] M70.62 ICD10 TROCHANTERIC BURSITIS, LEFT HIP [id number] on March 06, 2025 11:47:30 PM [facility] M99.53 ICD10 INTERVERTEBRAL D 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 [id number] on March 06, 2025 11:47:30 PM UTC M70.61 ICD10 TROCHANTERIC BUR SITIS, RIGHT HIP [id number] on March 06, 2025 11:47:30 PM UT M70.62 ICD10 TROCHANTERIC BURSITIS, LEFT HIP [id number] on March 06, 2025 11:47:30 PM UT M99.53 ICD10 INTERVERTEBRAL D 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 [id number] on March 06, 2025 11:47:30 PM UT M48.061 ICD10 SPINAL STENOSIS, LUMBAR REGION WITHOUT NEUROGENIC CLAUDICATION [id number] on March 06, 2025 11:47:30 PM UT M79.10 ICD10 MYALGIA, UNSPECIFIED SITE IV [id number] on March 06, 2025 11:47:30 PM UT G57.03 ICD10 LESION OF SCIATI C NERVE, BILATERAL LOWER LIMBS [id number] on March 06, 2025 11:47:30 PM UT M51.16 ICD10 INTERVERTEBRAL D ISC DISORDERS WITH RADICULOPATHY, LUMBAR REGION [id number] on March 06, 2025 11:47:30 PM UT M25.551 ICD10 PAIN IN RIGHT HIP [id number] on March 06, 2025 11:47:30 PM UT M25.552 ICD10 PAIN IN LEFT HIP [id number] on March 06, 2025 11:47:30 PM UT G57.11 ICD10 MERALGIA PARESTH ETICA, RIGHT LOWER LIMB [id number] on March 06, 2025 11:47:30 PM UT M96.1 ICD10 POSTLAMINECTOMY SYNDROME, NOT ELSEWHERE CLASSIFIED [id number] on March 06, 2025 11:47:30 PM UT M79.672 ICD10 PAIN IN LEFT FOOT [id number] on March 06, 2025 11:47:30 PM UT M46.07 ICD10 SPINAL ENTHESOPA THY, LUMBOSACRAL REGION [id number] on March 06, 2025 11:47:30 PM UT R29.898 ICD10 OTHER SYMPTOMS A ND SIGNS INVOLVING THE MUSCULOSKELETAL SYSTEM [id number] on March 06, 2025 11:47:30 PM UT E11.9 ICD10 TYPE 2 DIABETES MELLITUS WITHOUT COMPLICATIONS [id number] on March 06, 2025 11:47:30 PM [facility] G89.29 ICD10 OTHER CHRONIC PAIN [id number] o n March 06, 2025 11:47:30 PM UT I50.9 ICD10 HEART FAILURE, UNSPECIFIED I [id number] on March 06, 2025 11:47:30 PM UT Z79.891 ICD10 DETENTION (CURRE NT) USE OF OPIATE ANALGESIC [id number] on March 06, 2025 11:47:30 PM UT Z79.84 ICD10 CUMULATIVE EFFECTS ANALYST (CURRE NT) USE OF ORAL HYPOGLYCEMIC DRUGS [id number] on March 06, 2025 11:47:30 PM UT Z79.85 ICD10 LONG-TERM (CURRE NT) USE OF INJECTABLE NON-INSULIN ANTIDIABETIC DRUGS [id number] on March 06, 2025 11:47:30 PM UT Z79.4 ICD10 CUMULATIVE EFFECTS ANALYST (CURRE NT) USE OF INSULIN [id number] on March 06, 2025 11:47:30 PM UT Z79.899 ICD10 OTHER DETENTION (CURRENT) DRUG THERAPY [id number] on March 06, 2025 11:47:30 PM UT Z88.0 ICD10 ALLERGY STATUS TO PENICILLIN [id number] on March 06, 2025 11:47:30 PM [facility] Z88.8 ICD10 ALLERGY STATUS T O OTHER DRUGS, MEDICAMENTS AND BIOLOGICAL SUBSTANCES [id number] on March 06, 2025 11:47:30 PM [facility] CARE TEAM Care Director Cardiology Role SILVESTRE SHEA Primary Care REYNALDO TRIVEDI Referring REYNALDO TRIVEDI Admitting REYNALDO TRIVEDI Primary Attending CARE TEAM CARE form tamper operator Role on Team Location Telecom Status Start Date End Canelo e Updated By SHABBIR HERRMANN PCP [address] [facility] [address], [place], [address] normal February 25, 2025 5:00:00 AM [facility] February 25, 2025 2:07:00 PM [facility] [id number] on February 25, 2025 2:07:55 PM [facility] FAROOQ HERRMANN Referring [address] [address], [place], [address] normal February 25, 2025 5:00:00 AM [facility] February 25, 2025 2:07:00 PM [facility] [id number] on February 25, 2025 2:07:55 PM [facility] FAROOQ HERRMANN Attending [address] [place] [address], [address] normal February 25, 2025 5:00:00 AM [facility] February 25, 2025 2:07:00 PM [facility] [id number] on February 25, 2025 2:07:55 PM [facility] FAROOQ HERRMANN Admitting [address] [place] [address], [address] normal February 25, 2025 5:00:00 AM [facility] February 25, 2025 2:07:00 PM [facility] [id number] on February 25, 2025 2:07:55 PM [facility] INSURANCE PROVIDERS INSURANCE PROVIDER Coverage Status - Effective Date Coverage Type Payor Plan Order Relationship To Subscriber Insurance Plan No Insurance Plan 2024-04-02 PRIMARY [phone] [facility] [employer]
--- NOTE | 2025-03-19 09:45 | MR_ITS ---
FINAL REPORT CLINICAL HISTORY: left foot pain, injury twisted ankle 1 week ago pain in ball of foot COMPARISON: None FINDINGS: Multiplanar MR imaging of the left foot was performed without contrast. There is abnormal marrow edema involving the distal 3rd and 4th metatarsals. On T1-weighted imaging, subtle nondisplaced fractures are noted. There is surrounding soft tissue edema. The ankle mortise is intact. The supporting tendons about the ankle are intact. Flexor and extensor tendons are intact. Achilles tendon is intact. The musculature is intact. Plantar fascia is intact. The plantar aponeurosis is intact. No soft tissue mass or cyst is identified. IMPRESSION: Nondisplaced fractures distal 3rd and 4th metatarsals with associated marrow edema. Reviewed, Interpreted and Dictated by Everett Nails MD Transcribed by Nelly Orozco Authenticated and [facility]
--- OUTSIDE RECORDS SUMMARY | 2025-03-19 10:16 | XMS_ITS | Encounter Summary ---
Author Organization [employer] ([place], [place], [place], [place], [place]) Address [address] [place] [address] Care Team Providers Care Fishing Manager Name Role Phone Unavailable Primary Care Provider Unavailabl e Encounter Details Date Type Department Care Team (Late st Contact Info) Description 04/26/2019 Transcribed Document [facility] Radiology [address] [place] [address] Provider, Luciano Bronson MD Social [...] [facility] Aiyana ProviderMD - 04/26/2019 3:20 PM [...] 14:11 EST Treatment Time : 25 Minute(s) MCGRAW JAUN OTR/L - 05/02/2019 15:28 EST Functional Mobility Mobility Grid Bed Roll Left : Supervision/set-up Bed Roll Right : Supervision/set-up Bed Scooting : Supervision/set-up Supine to Sit : Supervision/set-up Sit to Supine : Supervision/set-up JAUN MCGRAW OTR/L - 05/02/2019 15:28 EST Plan of Care, OT OT Tx Plan/Goals Established w Patient : Yes LUCIEN JAUN, OTR/L - 05/02/2019 15:28 EST Intermediate Goals, OT Grooming LTG Grid Goal #1 [...] : pt to EOB supervision with leg bindery worker. Sat unsupported. Given AE for LB dressing educated and demonstrated understanding. Pt educated on bathroom transfers, shower transfers, car transfers, toileting hygiene. Given tongs for toileting. Dicussed use of home bidet. Pt supervision to supine with leg bindery worker. Assessment : pt has good understanding of transfer safety and education given. to dc home Needs HH OT. Plan for Treatment : see poc JAUN MCGRAW OTR/fOelia - 05/02/2019 15:28 EST Pain Assessment Pain [...] JAUN MCGRAW OTR/Ofelia - 05/02/2019 15:28 EST Electronically signed by Carito [facility] Conversion Air Pollution Auditor Cerner at 08/23/2022 11:19 AM CDT documented in this encounter Plan of Treatment Not on file documented as of this encounter Visit Diagnoses Not on filedocumented in this encounter
--- OUTSIDE RECORDS SUMMARY | 2025-03-19 10:16 | XMS_ITS | Encounter Summary ---
Author Organization [employer] ([place], [place], [place], [place], [place]) Address [address] [place] [address] Care Team Providers Care As400 Programmer Analyst Name Role Phone Unavailable Primary Care Provider Unavailabl e Encounter Details Date Type Department Care Team (Late st Contact Info) Description 04/27/2019 Transcribed Document [facility] Neurology - [facility] [address] [place] [address] [address] [place] [address] Meliza Downs Jr., MD [address] [place] [address] [address] [place] [address] Social History Tobacco Use Types Packs/Day Years [...]
--- OUTSIDE RECORDS SUMMARY | 2025-03-19 10:16 | XMS_ITS | Encounter Summary ---
Author Organization [employer] ([place], [place], [place], [place], [place]) Address [address] [place] [address] Care Team Providers Care Human Resources Clerk Name Role Phone Unavailable Primary Care Provider Unavailabl e Encounter Details Date Type Department Care Team (Late st Contact Info) Description 04/27/2019 Transcribed Document [facility] [address] [place] [address] ProviderLuciano MD Social History Tobacco [...] [facility] Aiyana ProviderMD - 04/27/2019 6:51 AM EST Height and Weight, Routine Entered On: 04/27/2019 5:52 EST Performed On: 04/27/2019 5:51 EST by Prisca Stephenson Patient Communications Equipment Supervisor Height and Weight, Routine Routine Weight Source : Bed scale Routine Weight Entry Format : Metric Routine Weight, Kilograms : 86.5 kg(Converted to: 190 lb 11 oz) Routine Weight Calculation : 86.5 kg Height Source : Measured Height Entry Format : Webster Height, Feet : 5 ft Height, Inches : 2 Inch Clinical Height : 157.48 cm Body Surface Area (BSA), Routine : 1.87 m2 Body Mass Index (BMI), Routine : 34.88 kg/m2 Prisca Stephenson Patient Communications Equipment Supervisor - 04/27/2019 5:51 EST documented in this encounter Plan of Treatment Not on file documented as of this encounter Visit Diagnoses Not on filedocumented in this encounter
--- OUTSIDE RECORDS SUMMARY | 2025-03-19 10:16 | XMS_ITS | Encounter Summary ---
Author Organization [employer] ([place], [place], [place], [place], [place]) Address [address] [place] [address] Care Team Providers Care Machine Molder Squeeze Name Role Phone Unavailable Primary Care Provider Unavailabl e Encounter Details Date Type Department Care Team (Late st Contact Info) Description 04/26/2019 Transcribed Document [facility] Radiology [address] [place] [address] ProviderLuciano MD Social History Tobacco [...] [facility] Aiyana ProviderMD - 04/26/2019 3:00 AM EST Vocational Adviser Details Entered On: 04/26/2019 0:18 EST Performed [...] EST Electronically signed by Luciano [employer] Conversion Gas Collection System Operator Cerner at 08/23/2022 11:19 AM CDT documented in this encounter Plan of Treatment Not on file documented as of this encounter Visit Diagnoses Not on filedocumented in this encounter
--- OUTSIDE RECORDS SUMMARY | 2025-03-19 10:16 | XMS_ITS | Encounter Summary ---
Author Organization [employer] ([place], [place], [place], [place], [place]) Address [address] [place] [address] Care Team Providers Care Computer Programming Manager Name Role Phone Unavailable Primary Care Provider Unavailabl e Encounter Details Date Type Department Care Team (Late st Contact Info) Description 04/27/2019 Transcribed Document [facility] Radiology [address] [place] [address] Provider yvon Bronson MD Social History Tobacco Use Types Packs/Day Years Used Date Smoking Tobacco: Never Assessed Comments Unknown Sex and Gender Information Value Date Recorded Sex Assigned at Not on file Legal Sex Female 6:01 PM CDT Gender Identity Not on file Sexual Orientation Not on file documented as of this encounter Miscellaneous Notes * Cerner Conversion Note - [facility] Aiyana ProviderMD - 04/27/2019 6:00 PM EST Chart Check - Review Order Profile Entered On: 04/27/2019 18:57 EST Performed On: 04/27/2019 17:00 EST by SHAWNA WISE RN Chart Check Powerplans Initiated/Discontinued as Appropriate : Yes All Active Orders Reviewed : Yes SHAWNA WISE RN - 04/27/2019 18:57 EST Electronically signed by Carito [facility] Conversion Enterprise Architect Cerner at 08/23/2022 11:19 AM CDT documented in this encounter Plan of Treatment Not on file documented as of this encounter Visit Diagnoses Not on filedocumented in this encounter
--- OUTSIDE RECORDS SUMMARY | 2025-03-19 10:16 | XMS_ITS | Encounter Summary ---
Author Organization [employer] ([place], [place], [place], [place], [place]) Address [address] [place] [address] Care Team Providers Care Pile Operator Name Role Phone Unavailable Primary Care Provider Unavailabl e Encounter Details Date Type Department Care Team (Late st Contact Info) Description 04/26/2019 Transcribed Document [facility] 1 [place] [address] Provider, Luciano Bronson MD Social [...] [facility] Aiyana ProviderMD - 04/26/2019 2:11 PM EST UM Authorization Entered On: 04/26/2019 13:11 EST Performed On: 04/26/2019 13:11 EST by BULMARO DUONG RN-Utilization Review Primary Insurance Authorization Authorization and Policy Numbers : Insurance 1 Health Plan: AETNA MEDICARE REPL Policy Number: [id number] Authorization Number: [id number] Insurance Primary Name : [facility] [id number] Authorization Status-Primary : Awaiting callback Authorization Number-Primary : [id number] Authorized Service Begin Date-Primary : 04/25/2019 EST Authorization Comments-Primary : clinicals faxed via [employer] for cont stay (only 1 day approved) Historical Authorization Comments-Primary : Comment 1: per STAR inpt approved 1 day auth# [id number] (FRANCY MILIAN, Director Of Customer Acquisition 04/24/2019 13:26) BULMARO DUONG, RN-Utilization Review - 04/26/2019 13:11 EST Electronically signed by [facility], [facility] Conversion Radio Survey Worker Cerner at 08/23/2022 11:19 AM CDT documented in this encounter Plan of Treatment Not on file documented as of this encounter Visit Diagnoses Not on filedocumented in this encounter
--- OUTSIDE RECORDS SUMMARY | 2025-03-19 10:16 | XMS_ITS | Clinical Summary ---
Author Organization [facility] Address [address] [facility] [address] [place] [address] Care Team Providers Care Securities Consultant Name Role Phone CharliEv RINA Primary Care Provider [phone] Allergies Active Allergy Reactions Criticality Noted Date [...] (eight) hours if needed. Active HYDROcodone-iain taminophen ([place]) 5-325 MG tablet Take 1 tablet by [...] Visit [facility] [address] [place] [address] Nasrin Roque PA [address] [place] [address], [address] [place] [address] Health Maintenance Due Date Last [...] this topic Insurance [employer] MEDICARE ADVANTAGE OUT OF NETWORK EFF 04/02/2025 Care Teams Securities Consultant Relationship Specialty Start Date End Date Ev Augustin NP [address] [place] [address] PCP - General 12/26/19
--- OUTSIDE RECORDS SUMMARY | 2025-03-19 10:16 | XMS_ITS | Encounter Summary ---
Author Organization [employer] ([place], [place], [place], [place], [place]) Address [address] [place] [address] Care Team Providers Care Labor Expediter Name Role Phone Unavailable Primary Care Provider Unavailabl e Encounter Details Date Type Department Care Team (Late st Contact Info) Description 04/26/2019 Transcribed Document [facility] 1 [place] [address] ProviderLuciano MD Social History Tobacco Use Types Packs/Day Years Used Date Smoking Tobacco: Never Assessed Comments Unknown Sex and Gender Information Value Date Recorded Sex Assigned at Not on file Legal Sex Female 6:01 PM CDT Gender Identity Not on file Sexual Orientation Not on file documented as of this encounter Miscellaneous Notes * Cerner Conversion Note - [facility] Aiyana ProviderMD - 04/26/2019 8:56 AM EST UM Authorization Entered On: 04/26/2019 7:57 EST Performed On: 04/26/2019 7:56 EST by BULMARO DUONG RN-Utilization Review Primary Insurance Authorization Authorization and Policy Numbers : Insurance 1 Health Plan: AETNA MEDICARE REPL Policy Number: [id number] Authorization Number: [id number] Insurance Primary Name : [facility] [id number] Authorization Status-Primary : Admit approved Authorization Number-Primary : [id number] Authorized Service Begin Date-Primary : 04/25/2019 EST Historical Authorization Comments-Primary : Comment 1: per STAR inpt approved 1 day auth# [id number] (FRANCY MILIAN, Caseworker 04/24/2019 13:26) BULMARO DUONG RN-Utilization Review - 04/26/2019 7:56 EST Electronically signed by Carito [facility] Conversion Quality Assurance Advisor Cerner at 08/23/2022 11:18 AM CDT documented in this encounter Plan of Treatment Not on file documented as of this encounter Visit Diagnoses Not on filedocumented in this encounter
--- OUTSIDE RECORDS SUMMARY | 2025-03-19 10:16 | XMS_ITS | Encounter Summary ---
Author Organization [employer] ([place], [place], [place], [place], [place]) Address [address] [place] [address] Care Team Providers Care Block And Case Maker Name Role Phone Unavailable Primary Care Provider Unavailabl e Encounter Details Date Type Department Care Team (Late st Contact Info) Description 04/26/2019 Transcribed Document [facility] 1 [place] [address] ProviderLuciano MD Social History Tobacco [...] [facility] Aiyana ProviderMD - 04/26/2019 6:00 AM EST [...]
--- OUTSIDE RECORDS SUMMARY | 2025-03-19 10:16 | XMS_ITS | Encounter Summary ---
Author Organization [employer] ([place], [place], [place], [place], [place]) Address [address] [place] [address] Care Team Providers Care Mail Rider Name Role Phone Unavailable Primary Care Provider Unavailabl e Encounter Details Date Type Department Care Team (Late st Contact Info) Description 04/27/2019 Transcribed Document [facility] Radiology 1 [place] [address] ProviderLuciano MD Social History Tobacco [...] - [facility] Aiyana ProviderMD - 04/27/2019 6:00 [...]
--- OUTSIDE RECORDS SUMMARY | 2025-03-19 10:16 | XMS_ITS | Encounter Summary ---
Author Organization [employer] ([place], [place], [place], [place], [place]) Address [address] [place] [address] Care Team Providers Care Onion Tier Name Role Phone Unavailable Primary Care Provider Unavailabl e Encounter Details Date Type Department Care Team (Late st Contact Info) Description 04/28/2019 Transcribed Document [facility] [address] [facility] [address] [place] [address] Meliza Downs Jr., MD [address] [place] [address] [address] [place] [address] Social History Tobacco Use Types Packs/Day Years [...] for a while. [place]. i dw case managemenrt. documented in this encounter Plan of Treatment Not on file documented as of this encounter Visit Diagnoses Not on filedocumented in this encounter
--- OUTSIDE RECORDS SUMMARY | 2025-03-19 10:16 | XMS_ITS | Encounter Summary ---
Author Organization [employer] ([place], [place], [place], [place], [place]) Address [address] [place] [address] Care Team Providers Care Merchandise Flow Associate Name Role Phone Unavailable Primary Care Provider Unavailabl e Encounter Details Date Type Department Care Team (Late st Contact Info) Description 04/27/2019 Transcribed Document [facility] 1 [place] [address] ProviderLuciano MD Social History Tobacco Use Types Packs/Day Years Used Date Smoking Tobacco: Never Assessed Comments Unknown Sex and Gender Information Value Date Recorded Sex Assigned at Not on file Legal Sex Female 6:01 PM CDT Gender Identity Not on file Sexual Orientation Not on file documented as of this encounter Miscellaneous Notes * Cerner Conversion Note - [facility] Aiyana ProviderMD - 04/27/2019 3:00 AM EST Miter Saw Operator Details Entered On: 04/27/2019 0:30 EST Performed [...]
--- OUTSIDE RECORDS SUMMARY | 2025-03-19 10:16 | XMS_ITS | Encounter Summary ---
Author Organization [employer] ([place], [place], [place], [place], [place]) Address [address] [place] [address] Care Team Providers Care Vascular Tech Name Role Phone Unavailable Primary Care Provider Unavailabl e Encounter Details Date Type Department Care Team (Late st Contact Info) Description 04/27/2019 Transcribed Document [facility] Radiology 1 [place] [id number] Alverto Murphy MD [facility] [address] [address] Social History Tobacco Use Types [...]
--- OUTSIDE RECORDS SUMMARY | 2025-03-19 10:17 | XMS_ITS | Encounter Summary ---
Author Organization [employer] ([place], [place], [place], [place], [place]) Address [address] [place] [address] Care Team Providers Care Precision Grinder External Name Role Phone Unavailable Primary Care Provider Unavailabl e Encounter Details Date Type Department Care Team (Late st Contact Info) Description 05/02/2019 Transcribed Document [facility] Neurology - [address] [facility] 200 [place] [address] Meliza Downs Jr., MD [address] [place] [address] 200 [place] [address] Social History Tobacco Use Types Packs/Day Years [...] 100 mg= 2 Cap, Oral, TID Metamucil [place] Smooth Texture Sugar Free, 1 Packet, Oral, [...] Percent Man 24 % 05/02/2019 03:02 EST [place] Percent Man 8 % (High) 05/02/2019 03:02 [...]
--- OUTSIDE RECORDS SUMMARY | 2025-03-19 10:17 | XMS_ITS | Encounter Summary ---
Author Organization [employer] ([place], [place], [place], [place], [place]) Address [address] [place] [address] Care Team Providers Care Sap Portal Consultant Name Role Phone Unavailable Primary Care Provider Unavailabl e Encounter Details Date Type Department Care Team (Late st Contact Info) Description 05/01/2019 Transcribed Document [facility] 1 [place] [address] ProviderLuciano MD Social History Tobacco [...] Conversion Note - [facility] Historical ProviderMD - 05/01/2019 6:00 PM EST Chart Check - Review Order Profile Entered On: 05/01/2019 18:11 EST Performed On: 05/01/2019 17:00 EST by Nicolasa Abernathy RN Chart Check Powerplans Initiated/Discontinued as Appropriate : Yes All Active Orders Reviewed : Yes Nicolasa Abernathy RN - 05/01/2019 18:11 EST Electronically signed by Carito [facility] Conversion Recreation Program Coordinator Cerner at 08/23/2022 11:19 AM CDT documented in this encounter Plan of Treatment Not on file documented as of this encounter Visit Diagnoses Not on filedocumented in this encounter
--- OUTSIDE RECORDS SUMMARY | 2025-03-19 10:17 | XMS_ITS | Encounter Summary ---
Author Organization [employer] ([place], [place], [place], [place], [place]) Address [address] [place] [address] Care Team Providers Care It Audit Manager Name Role Phone Unavailable Primary Care Provider Unavailabl e Encounter Details Date Type Department Care Team (Late st Contact Info) Description 04/28/2019 Transcribed Document [facility] Radiology 1 [place] [address] Provider, Luciano Bronson MD Social [...] * Cerner Conversion Note - [facility] Aiyana ProviderMD - 04/28/2019 4:19 PM EST UM Authorization Entered On: 04/28/2019 15:20 EST Performed On: 04/28/2019 15:19 EST by Gali Newman Rn-Utilization Review Primary Insurance Authorization Authorization and Policy Numbers : Insurance 1 Health Plan: AETNA MEDICARE REPL Policy Number: [id number] Authorization Number: [id number] Insurance Primary Name : Mariela [id number] Authorization Status-Primary : Awaiting callback Authorization Number-Primary : [id number] Authorized Service Begin Date-Primary : 04/25/2019 EST Authorization Comments-Primary : clinical faxed per faith for 04/27 and 04/28 Historical Authorization Comments-Primary : Comment 1: call back from [employer] with kadeemdony requesting clinical be faxed to [phone]. clinical faxed per faith (Trent, Gali L, Rn-Utilization Review 04/28/2019 15:17) Comment 2: lvm with brigette rn with [employer] for c/s . acb (Gali Newman, Rn-Utilization Review 04/28/2019 13:51) Comment 3: clinicals [facility] for cont stay (only 1 day approved) (BULMARO DUONG, RN-Utilization Review 04/26/2019 13:11) Comment 4: per [employer] inpt approved 1 day auth# [id number] (FRANCY MILIAN, Corporate Law Assistant 04/24/2019 13:26) Gali Newman Rn-Utilization Review - 04/28/2019 15:19 EST documented in this encounter Plan of Treatment Not on file documented as of this encounter Visit Diagnoses Not on filedocumented in this encounter
--- OUTSIDE RECORDS SUMMARY | 2025-03-19 10:17 | XMS_ITS | Encounter Summary ---
Author Organization [employer] ([place], [place], [place], [place], [place]) Address [address] [place] [address] Care Team Providers Care Metal Mockup Maker Name Role Phone Unavailable Primary Care Provider Unavailabl e Encounter Details Date Type Department Care Team (Late st Contact Info) Description 04/29/2019 Transcribed Document [facility] Radiology 1 [place] [address] Provider, Luciano Bronson MD Social [...] [facility] Aiyana ProviderMD - 04/29/2019 10:39 [...] - ADRIAN RESENDIZ MD-ANS Consulting Physician - SANTROCK, HALLE TONY, MD-ANS Consulting Physician - ALVERTO DIMAS MD-INT - medical utilization management manager Physician - MACK FAYE MD Referring Physician [...] 100 mg= 2 Cap, Oral, TID Metamucil [place] Smooth Texture Sugar Free, 1 Packet, Oral, [...]
--- OUTSIDE RECORDS SUMMARY | 2025-03-19 10:17 | XMS_ITS | Encounter Summary ---
Author Organization [employer] ([place], [place], [place], [place], [place]) Address [address] [place] [address] Care Team Providers Care Human Resources Psychologist Name Role Phone Unavailable Primary Care Provider Unavailabl e Encounter Details Date Type Department Care Team (Late st Contact Info) Description 04/28/2019 Transcribed Document [facility] Neurology - [address] [place] [address] [address] [place] [address] Lane Ortiz Jr., MD [address] [place] [address] [address] [place] [address] Social History Tobacco Use Types Packs/Day Years [...] Years Sex: Female : 1955 Subjective Per RN, mervin. Walked 30 feet with PT yesterday. Leg [...] for leak. Continue PT. Will need rehab. [place] goodman. Medications alogliptin, 25 mg= 1 Tab, [...] 100 mg= 2 Cap, Oral, TID Metamucil [place] Smooth Texture Sugar Free, 1 Packet, Oral, [...] Lymph # 1.24 x10(3)/uL 04/28/2019 03:07 EST [place] % 9.2 % (High) 04/28/2019 03:07 EST [place] # 0.90 K/uL 04/28/2019 03:07 EST Eos [...] Appearance CLEAR2 04/28/2019 08:57 EST Urine Specific [place] >1.030 (High) 04/28/2019 08:57 EST Urine pH [...]
--- OUTSIDE RECORDS SUMMARY | 2025-03-19 10:17 | XMS_ITS | Encounter Summary ---
Author Organization [employer] ([place], [place], [place], [place], [place]) Address [address] [place] [address] Care Team Providers Care Professor Of Political Science Name Role Phone Unavailable Primary Care Provider Unavailabl e Encounter Details Date Type Department Care Team (Late st Contact Info) Description 05/02/2019 Transcribed Document [facility] 1 [place] [address] Provider, Luciano Bronson MD Social [...] - [facility] Aiyana ProviderMD - 05/02/2019 9:47 AM EST UM Authorization Entered On: 05/02/2019 8:49 EST Performed On: 05/02/2019 8:47 EST by Gali Newman Rn-Utilization Review Primary Insurance Authorization Authorization and Policy Numbers : Insurance 1 Health Plan: AETNA MEDICARE REPL Policy Number: [id number] Authorization Number: [id number] Insurance Primary Name : [employer] [id number] Authorization Status-Primary : Admit approved Authorization Number-Primary : [id number] Number of Days Authorized-Primary : 8 Day(s) Authorized Service Begin Date-Primary : 04/25/2019 EST Authorized Service End Date-Primary : 05/03/2019 EST Authorization Comments-Primary : c/s auth approved per brigette for 05/01 to 05/02. minh 05/03 Historical Authorization Comments-Primary : Comment 1: Authorized per fax 04/29/2019 @ 1530. Approved x5 days (6 total: 04/25-04/30). Next review due on 05/01/2019. Tameka Davidson, RN. (Dayna Rios, Industrial Truck Mechanic 04/30/2019 07:06) Comment 2: clinical faxed per [employer] for 04/27 and 04/28 (Gali Newman, Rn-Utilization Review 04/28/2019 15:19) Comment 3: call back from tameka lui with [employer] requesting clinical be faxed to [phone]. clinical faxed per [employer] (Gali Newman, Rn-Utilization Review 04/28/2019 15:17) Comment 4: lvm with brigette lui with [employer]anya for c/s . acb (Gali Newman, Rn-Utilization Review 04/28/2019 13:51) Comment 5: clinicals faxed via [employer] for cont stay (only 1 day approved) (BULMARO DUONG, RN-Utilization Review 04/26/2019 13:11) Comment 6: per [employer] inpt approved 1 day auth# [id number] (FRANCY MILIAN, Ophthalmic Medical Assistant 04/24/2019 13:26) Gali Newman, Deya-Utilization Review - 05/02/2019 8:47 EST Electronically signed by Luciano [employer] Conversion Operations Research Director Cerner at 08/23/2022 11:19 AM CDT documented in this encounter Plan of Treatment Not on file documented as of this encounter Visit Diagnoses Not on filedocumented in this encounter
--- OUTSIDE RECORDS SUMMARY | 2025-03-19 10:17 | XMS_ITS | Encounter Summary ---
Author Organization [employer] ([place], [place], [place], [place], [place]) Address [address] [place] [address] Care Team Providers Care Event Specialist Product Demonstrator Name Role Phone Unavailable Primary Care Provider Unavailabl e Encounter Details Date Type Department Care Team (Late st Contact Info) Description 04/29/2019 Transcribed Document [facility] Radiology 1 [place] [address] Karina Murphy MD [facility] [address] [address] Social History Tobacco Use Types [...] 1955 Associated Diagnoses: None Author: GERALDINE KESSLER, DIPPER AND BAKER-GUNNAR S: Patient found lying in bed. A/O. [...] mg/dL 04/29/2019 09:47 Glucose Level 131 mg/dL HI 04/29/2019 09:47 Calcium Level 8.8 mg/dL 04/29/2019 [...] Results (Current Encounter/Past 24 Hours) Bun/Creatinine 22.0 [place] 04/29/2019 09:47 Creatinine Level 0.50 mg/dL LOW 04/29/2019 09:47 eGFR NonAfrican >60 mL/min/1.73m2 04/29/2019 09:47 eGFR >60 mL/min/1.73m2 04/29/2019 09:47 Sodium Level 138 mmol/L 04/29/2019 09:47 Potassium Level 3.3 mmol/L LOW 04/29/2019 09:47 Chloride Level 104 mmol/L 04/29/2019 09:47 Carbon Dioxide Level 31 mmol/L 04/29/2019 09:47 Anion Gap 6 LOW 04/29/2019 09:47 Blood Urea Nitrogen 11 mg/dL 04/29/2019 09:47 Glucose Level 131 mg/dL [place] 04/29/2019 09:47 Calcium Level 8.8 mg/dL 04/29/2019 09:47 Coagulation Results (Current Encounter/Past 24 Hours) No Coagulation Results Found (Past 24 Hours) Creatinine Clearance (Current Encounter/Past 24 Hours) Creatinine Level 0.50 mg/dL LOW 04/29/2019 09:47 Bun/Creatinine 22.0 [place] 04/29/2019 09:47 Estimated Creatinine Clearance 92.27 mL/Min [...] per Dr. Ortiz; family requesting placement in [place] Urology consulted given neurogenic bladder and retention [...]
--- OUTSIDE RECORDS SUMMARY | 2025-03-19 10:17 | XMS_ITS | Encounter Summary ---
Author Organization [employer] ([place], [place], [place], [place], [place]) Address [address] [place] [address] Care Team Providers Care Bioinformatics Engineer Name Role Phone Unavailable Primary Care Provider Unavailabl e Encounter Details Date Type Department Care Team (Late st Contact Info) Description 04/28/2019 Transcribed Document [facility] Radiology 1 [place] [address] Provider, Luciano Bronson MD Social [...] [facility] Aiyana ProviderMD - 04/28/2019 9:31 [...] with Hanna Murphy MD Electronically signed by [facility] Conversion Vp Legal Affairs Cerner at 08/23/2022 11:19 AM CDT documented in this encounter Plan of Treatment Not on file documented as of this encounter Visit Diagnoses Not on filedocumented in this encounter
--- OUTSIDE RECORDS SUMMARY | 2025-03-19 10:17 | XMS_ITS | Encounter Summary ---
Author Organization [employer] ([place], [place], [place], [place], [place]) Address [address] [place] [address] Care Team Providers Care Passenger Service Agent Name Role Phone Unavailable Primary Care Provider Unavailabl e Encounter Details Date Type Department Care Team (Late st Contact Info) Description 04/29/2019 Transcribed Document [facility] Neurology - [address] [address] Meliza Downs Jr., MD [address] [place] [address] [address] [place] [address] Social History Tobacco Use Types Packs/Day Years [...] for leak. Continue PT. Will need rehab. [place] goodman. Urology to see today. VTE Prophylaxis [...] 100 mg= 2 Cap, Oral, TID Metamucil [place] Smooth Texture Sugar Free, 1 Packet, Oral, [...]
--- OUTSIDE RECORDS SUMMARY | 2025-03-19 10:17 | XMS_ITS | Encounter Summary ---
Author Organization [employer] ([place], [place], [place], [place], [place]) Address [address] [place] [address] Care Team Providers Care High School Librarian Name Role Phone Unavailable Primary Care Provider Unavailabl e Encounter Details Date Type Department Care Team (Late st Contact Info) Description 04/28/2019 Transcribed Document [facility] 1 [place] [address] Provider, Luciano Bronson MD Social History Tobacco Use Types Packs/Day Years Used Date Smoking Tobacco: Never Assessed Comments Unknown Sex and Gender Information Value Date Recorded Sex Assigned at Not on file Legal Sex Female 6:01 PM CDT Gender Identity Not on file Sexual Orientation Not on file documented as of this encounter Miscellaneous Notes * Cerner Conversion Note - [facility] Aiyana ProviderMD - 04/28/2019 5:40 PM EST Consult Phone Call Documentation Entered On: 04/29/2019 8:03 EST Performed On: 04/28/2019 16:40 EST by [facility] Coord Phone Call for Consults Consult Phone Call/Page Attempt : First call Consult Reason : neurogenic bladder Physician Requesting Consult : ALICE MAR PA-INT Provider Team Notified Name : Urology Physician Covering for Consult : NOÉ HAILE MD-URO Date and Time Call Returned : 04/29/2019 8:03 EST Consult, Additional Information : Spoke with Dr. Mcdonald urology resident Marce Multani, [facility] Coord - 04/29/2019 8:02 EST documented in this encounter Plan of Treatment Not on file documented as of this encounter Visit Diagnoses Not on filedocumented in this encounter
--- OUTSIDE RECORDS SUMMARY | 2025-03-19 10:17 | XMS_ITS | Encounter Summary ---
Author Organization [employer] ([place], [place], [place], [place], [place]) Address [address] [place] [address] Care Team Providers Care Old Testament Professor Name Role Phone Unavailable Primary Care Provider Unavailabl e Encounter Details Date Type Department Care Team (Late st Contact Info) Description 04/28/2019 Transcribed Document [facility] Radiology 1 [place] [address] Provider, Luciano Bronson MD Social History Tobacco Use Types Packs/Day Years Used Date Smoking Tobacco: Never Assessed Comments Unknown Sex and Gender Information Value Date Recorded Sex Assigned at Not on file Legal Sex Female 6:01 PM CDT Gender Identity Not on file Sexual Orientation Not on file documented as of this encounter Miscellaneous Notes * Cerner Conversion Note - [facility] Aiyana ProviderMD - 04/28/2019 10:32 AM EST UM Authorization Entered On: 04/28/2019 9:32 EST Performed On: 04/28/2019 9:32 EST by Gali Newman Rn-Utilization Review Primary Insurance Authorization Authorization and Policy Numbers : Insurance 1 Health Plan: [employer] MEDICARE REPL Policy Number: [id number] Authorization Number: [id number] Insurance Primary Name : [employer] [id number] Authorization Status-Primary : Awaiting callback Authorization Number-Primary : [id number] Authorized Service Begin Date-Primary : 04/25/2019 EST Historical Authorization Comments-Primary : Comment 1: clinicals faxed via [employer] for cont stay (only 1 day approved) (BULMARO DUONG, RN-Utilization Review 04/26/2019 13:11) Comment 2: per [employer] inpt approved 1 day auth# [id number] (FRANCY MILIAN, Mutuel Department Manager 04/24/2019 13:26) Gali Newman Rn-Utilization Review - 04/28/2019 9:32 EST Electronically signed by Carito, [facility] Conversion Analytical Data Miner Cerner at 08/23/2022 11:19 AM CDT documented in this encounter Plan of Treatment Not on file documented as of this encounter Visit Diagnoses Not on filedocumented in this encounter
--- OUTSIDE RECORDS SUMMARY | 2025-03-19 10:17 | XMS_ITS | Encounter Summary ---
Author Organization [employer] ([place], [place], [place], [place], [place]) Address [address] [place] [address] Care Team Providers Care Strainer Tender Name Role Phone Unavailable Primary Care Provider Unavailabl e Encounter Details Date Type Department Care Team (Late st Contact Info) Description 04/30/2019 Transcribed Document [facility] Neurology - [address] [place] [id number] Lane Ortiz Jr., MD [address] [place] [address] [address] [place] [address] Social History Tobacco Use Types Packs/Day Years [...] 100 mg= 2 Cap, Oral, TID Metamucil Eolia Smooth Texture Sugar Free, 1 Packet, Oral, [...] Lymph # 1.50 x10(3)/uL 04/29/2019 09:11 EST [place] % 7.0 % 04/30/2019 03:51 EST [place] % 7.8 % 04/29/2019 09:11 EST [place] # 0.59 K/uL 04/30/2019 03:51 EST [place] # 0.71 K/uL 04/29/2019 09:11 EST [place] [...]
--- OUTSIDE RECORDS SUMMARY | 2025-03-19 10:17 | XMS_ITS | Encounter Summary ---
Author Organization [employer] ([place], [place], [place], [place], [place]) Address [address] [place] [address] Care Team Providers Care Dry Wall Installations Mechanic Name Role Phone Unavailable Primary Care Provider Unavailabl e Encounter Details Date Type Department Care Team (Late st Contact Info) Description 04/28/2019 Transcribed Document [facility] Radiology 1 [place] [address] Provider, Luciano Bronson MD [...] * Cerner Conversion Note - [facility] Aiyana ProviderMD - 04/28/2019 6:13 PM EST Initial Discharge Planning Entered On: 04/28/2019 17:18 EST Performed On: 04/28/2019 17:13 EST by ROMELIA MCADAMS RN-Triage Register Nurse Initial Assessment I Previously Documented Living Environment : No qualifying data available. Living Situation : Home Patient Lives With : Spouse Is the Patient a Caregiver at Home? : No Emergency Contact #1 : Michelle Gonzalez Emergency Contact #1 cell Emergency Contact #1 Relationship : Emergency Contact #2 : Kandi Burt Emergency Contact #2 cell Emergency Contact #2 Relationship : daughter ROMELIA MCADAMS RN-Triage Register Nurse - 04/28/2019 17:13 EST Initial Assessment II Sensory and Motor Deficits : None ROMELIA MCADAMS RN-Triage Register Nurse - 04/28/2019 17:13 EST Discharge Needs I Anticipated Discharge Date : 04/30/2019 EST Anticipated Discharge To, CM : group home facility Current Home Treatment/Equipment : Current Home Treatment/Equipment No qualifying data available. Documentation Status Complete : Yes ROMELIA MCADAMS RN-Triage Register Nurse - 04/28/2019 17:13 EST Discharge Needs II Professional Skilled Services : Professional Skilled Services No qualifying data available. Needs Assistance with Transportation : Maybe Discharge Options Discussed with Patient : Short term rehabilitation ROMELIA MCADAMS RN-Triage Register Nurse - 04/28/2019 17:13 EST Narrative Note Narrative Note : 63yo female pt s/p L3-5 lami with resection of cauda equina tumor. CBR except when working with PT/OT. Met with pt, spouse, and daughter at bedside during rounds to discuss DCP. They request rehab at [facility] as pt's sister works there. CM also gave list of SNF in [facility] and [facility] with quality and resource information in case no bed or not in contract/network with pt's payor source. Referral sent to [facility] via Tc and left message with liaison . NSY states pt will not be ready for dc for a couple more days. CM will follow. ROMELIA MCADAMS RN-Triage Register Nurse - 04/28/2019 17:13 EST documented in this encounter Plan of Treatment Not on file documented as of this encounter Visit Diagnoses Not on filedocumented in this encounter
--- OUTSIDE RECORDS SUMMARY | 2025-03-19 10:17 | XMS_ITS | Encounter Summary ---
Author Organization [employer] ([place], [place], [place], [place], [place]) Address [address] [place] [address] Care Team Providers Care Retail General Manager Name Role Phone Unavailable Primary Care Provider Unavailabl e Encounter Details Date Type Department Care Team (Late st Contact Info) Description 05/02/2019 Transcribed Document [facility] 1 [place] [address] Provider, Luciano Bronson MD Social [...] Note - [facility] Aiyana ProviderMD - 05/02/2019 1:40 PM EST On Going Discharge Planning Entered On: 05/02/2019 12:41 EST Performed On: 05/02/2019 12:40 EST by ROMELIA MCADAMS RN-Neon Tube PumperChild Care Cook Progress Note Discharge Arrangements : Patient Post-Acute [...] Post Acute Providers : Yes ROMELIA MCADAMS, RN-Neon Tube Pumper - 05/02/2019 12:40 EST documented in this encounter Plan of Treatment Not on file documented as of this encounter Visit Diagnoses Not on filedocumented in this encounter
--- OUTSIDE RECORDS SUMMARY | 2025-03-19 10:17 | XMS_ITS | Encounter Summary ---
Author Organization [employer] ([place], [place], [place], [place], [place]) Address [address] [place] [address] Care Team Providers Care Pilot Fuel Engineer Name Role Phone Unavailable Primary Care Provider Unavailabl e Encounter Details Date Type Department Care Team (Late st Contact Info) Description 05/02/2019 Transcribed Document [facility] Neurology - [facility] [address] [place] [phone] Meliza Downs Jr., MD [address] [place] [address] [address] [place] [address] Social History Tobacco Use Types Packs/Day Years [...]
--- OUTSIDE RECORDS SUMMARY | 2025-03-19 10:17 | XMS_ITS | Encounter Summary ---
Author Organization [employer] ([place], [place], [place], [place], [place]) Address [address] [place] [address] Care Team Providers Care Plow Mechanic Name Role Phone Unavailable Primary Care Provider Unavailabl e Encounter Details Date Type Department Care Team (Late st Contact Info) Description 04/29/2019 Transcribed Document [facility] 1 [place] [address] Provider, Luciano Bronson MD Social [...] [facility] Aiyana ProviderMD - 04/29/2019 4:24 PM EST On Going Discharge Planning Entered On: 04/29/2019 15:26 EST Performed On: 04/29/2019 15:24 EST by ROMELIA MCADAMS RN-Returned Materials InspectorSap Business Analyst Progress Note Discharge Arrangements : Patient Post-Acute [...] Meeting Medical Necessity : Yes ROMELIA MCADAMS RN-Returned Materials Inspector - 04/29/2019 15:24 EST Narrative Progress Note Narrative Progress Note : Urology consulted for neurogenic bladder. Pt's choices of [facility] and [facility] are not in network with pt's payor source. D/W pt at bedside. She has chose [facility] now. Referral sent via Tc and informed Colleene. Precert intitated for acute. CM will continue to follow. ROMELIA MCADAMS RN-Returned Materials Inspector - 04/29/2019 15:24 EST Electronically signed by Carito [facility] Conversion Client Support Professional Cerner at 08/23/2022 11:18 AM CDT documented in this encounter Plan of Treatment Not on file documented as of this encounter Visit Diagnoses Not on filedocumented in this encounter
--- OUTSIDE RECORDS SUMMARY | 2025-03-19 10:17 | XMS_ITS | Encounter Summary ---
Author Organization [employer] ([place], [place], [place], [place], [place]) Address [address] [place] [address] Care Team Providers Care Circle Saw Operator Name Role Phone Unavailable Primary Care Provider Unavailabl e Encounter Details Date Type Department Care Team (Late st Contact Info) Description 04/28/2019 Transcribed Document [facility] Radiology 1 [place] [address] Provider, Luciano Bronson MD Social [...] [facility] Aiyana ProviderMD - 04/28/2019 2:51 PM EST UM Authorization Entered On: 04/28/2019 13:51 EST Performed On: 04/28/2019 13:51 EST by Gali Newman Rn-Utilization Review Primary Insurance Authorization Authorization and Policy Numbers : Insurance 1 Health Plan: [employer] MEDICARE REPL Policy Number: [id number] Authorization Number: [id number] Insurance Primary Name : Mariela [id number] Authorization Status-Primary : Awaiting callback Authorization Number-Primary : [id number] Authorized Service Begin Date-Primary : 04/25/2019 EST Authorization Comments-Primary : lvm with brigette lui with [facility] for c/s . acb Historical Authorization Comments-Primary : Comment 1: clinicals faxed via [employer] for cont stay (only 1 day approved) (BULMARO DUONG RN-Utilization Review 04/26/2019 13:11) Comment 2: per [facility] inpt approved 1 day auth# [id number] (FRANCY MILIAN, Lacquer Sizer 04/24/2019 13:26) Gali Newman Rn-Utilization Review - 04/28/2019 13:51 EST Electronically signed by Carito [facility] Conversion Plate Cutter Cerner at 08/23/2022 11:19 AM CDT documented in this encounter Plan of Treatment Not on file documented as of this encounter Visit Diagnoses Not on filedocumented in this encounter
--- OUTSIDE RECORDS SUMMARY | 2025-03-19 10:17 | XMS_ITS | Encounter Summary ---
Author Organization [employer] ([place], [place], [place], [place], [place]) Address [address] [place] [address] Care Team Providers Care Jigger Crown Pouncing Machine Operator Name Role Phone Unavailable Primary Care Provider Unavailabl e Encounter Details Date Type Department Care Team (Late st Contact Info) Description 04/28/2019 Transcribed Document [facility] Radiology 1 [place] [address] Provider, Lucinao Bronson MD Social History Tobacco Use Types Packs/Day Years Used Date Smoking Tobacco: Never Assessed Comments Unknown Sex and Gender Information Value Date Recorded Sex Assigned at Not on file Legal Sex Female 6:01 PM CDT Gender Identity Not on file Sexual Orientation Not on file documented as of this encounter Miscellaneous Notes * Cerner Conversion Note - [facility] Aiyana ProviderMD - 04/28/2019 2:50 PM EST UM Authorization Entered On: 04/28/2019 13:50 EST Performed On: 04/28/2019 13:50 EST by Gali Newman Rn-Utilization Review Primary Insurance Authorization Authorization and Policy Numbers : Insurance 1 Health Plan: [employer] MEDICARE REPL Policy Number: [id number] Authorization Number: [id number] [id number] Authorization Status-Primary : Awaiting callback Authorization Number-Primary : [id number] Authorized Service Begin Date-Primary : 04/25/2019 EST Historical Authorization Comments-Primary : Comment 1: clinicals faxed via [employer] for cont stay (only 1 day approved) (BULMARO DUONG, RN-Utilization Review 04/26/2019 13:11) Comment 2: per [facility] inpt approved 1 day auth# [id number] (FRANCY MILIAN, Ring Striker 04/24/2019 13:26) Gali Newman Rn-Utilization Review - 04/28/2019 13:50 EST Electronically signed by Carito, [facility] Conversion Chaser Helper Cerner at 08/23/2022 11:19 AM CDT documented in this encounter Plan of Treatment Not on file documented as of this encounter Visit Diagnoses Not on filedocumented in this encounter
--- OUTSIDE RECORDS SUMMARY | 2025-03-19 10:17 | XMS_ITS | Encounter Summary ---
Author Organization [employer] ([place], [place], [place], [place], [place]) Address [address] [place] [address] Care Team Providers Care Academic Director Name Role Phone Unavailable Primary Care Provider Unavailabl e Encounter Details Date Type Department Care Team (Late st Contact Info) Description 04/30/2019 Transcribed Document [facility] [address] [place] [phone] Meliza Downs Jr., MD [address] [place] [address] [address] [place] [address] Social History Tobacco Use Types Packs/Day Years [...]
--- OUTSIDE RECORDS SUMMARY | 2025-03-19 10:17 | XMS_ITS | Encounter Summary ---
Author Organization [employer] ([place], [place], [place], [place], [place]) Address [address] [place] [address] Care Team Providers Care Deputy Sheriff K9 Handler Name Role Phone Unavailable Primary Care Provider Unavailabl e Encounter Details Date Type Department Care Team (Late st Contact Info) Description 04/28/2019 Transcribed Document [facility] Radiology 1 [place] [address] Provider, Luciano Bronson MD Social [...] - [facility] Aiyana ProviderMD - 04/28/2019 2:49 PM EST UM Authorization Entered On: 04/28/2019 13:49 EST Performed On: 04/28/2019 13:49 EST by Gali Newman Rn-Utilization Review Primary Insurance Authorization Authorization and Policy Numbers : Insurance 1 Health Plan: A[employer] MEDICARE REPL Policy Number: [id number] Authorization Number: [id number] [id number] Authorization Status-Primary : Awaiting callback Authorization Number-Primary : [id number] Authorized Service Begin Date-Primary : 04/25/2019 EST Historical Authorization Comments-Primary : Comment 1: clinicals faxed via [employer] for cont stay (only 1 day approved) (BULMARO DUONG, RN-Utilization Review 04/26/2019 13:11) Comment 2: per [facility] inpt approved 1 day auth# [id number] (FRANCY MILIAN, Precision Assembler 04/24/2019 13:26) Gali Newman Rn-Utilization Review - 04/28/2019 13:49 EST Electronically signed by Carito, [facility] Conversion Building Code Inspector Cerner at 08/23/2022 11:19 AM CDT documented in this encounter Plan of Treatment Not on file documented as of this encounter Visit Diagnoses Not on filedocumented in this encounter
--- OUTSIDE RECORDS SUMMARY | 2025-03-19 10:17 | XMS_ITS | Encounter Summary ---
Author Organization [employer] ([place], [place], [place], [place], [place]) Address [address] [place] [address] Care Team Providers Care Carton Catcher Name Role Phone Unavailable Primary Care Provider Unavailabl e Encounter Details Date Type Department Care Team (Late st Contact Info) Description 04/28/[address] [facility] Radiology [address] [place] [address] Provider, Luciano Bronson MD Social [...] - [facility] Aiyana ProviderMD - 04/28/2019 4:17 PM EST UM Authorization Entered On: 04/28/2019 15:19 EST Performed On: 04/28/2019 15:17 EST by Gali Newman Rn-Utilization Review Primary Insurance Authorization Authorization and Policy Numbers : Insurance 1 Health Plan: [employer] MEDICARE REPL Policy Number: [id number] Authorization Number: [id number] Insurance Primary Name : Tanya [id number] Authorization Status-Primary : Awaiting callback Authorization Number-Primary : [id number] Authorized Service Begin Date-Primary : 04/25/2019 EST Authorization Comments-Primary : call back from [facility] with tanya requesting clinical be faxed to [phone]. clinical faxed per faith Bronson Authorization Comments-Primary : Comment 1: lvm with brigette lui with tanya for c/s . acb (Trent, Gali L, Rn-Utilization Review 04/28/2019 13:51) Comment 2: clinicals faxed via [employer] for cont stay (only 1 day approved) (BULMARO DUONG, RN-Utilization Review 04/26/2019 13:11) Comment 3: per [employer] inpt approved 1 day auth# [id number] (FRANCY MILIAN, Residential Finish Carpenter 04/24/2019 13:26) Gali Newman Rn-Utilization Review - 04/28/2019 15:17 EST documented in this encounter Plan of Treatment Not on file documented as of this encounter Visit Diagnoses Not on filedocumented in this encounter
--- OUTSIDE RECORDS SUMMARY | 2025-03-19 10:17 | XMS_ITS | Clinical Summary ---
Author Organization [employer] [facility] ([place], [place], [place], [place], [place]) Address [address] [place] [address] Care Team Providers Care Deputy Grand Jury Name Role Phone Unavailable Primary Care Provider [...]
--- OUTSIDE RECORDS SUMMARY | 2025-03-19 10:17 | XMS_ITS | Encounter Summary ---
Author Organization [employer] ([place], [place], [place], [place], [place]) Address [address] [place] [address] Care Team Providers Care Feather Renovator Name Role Phone Unavailable Primary Care Provider Unavailabl e Encounter Details Date Type Department Care Team (Late st Contact Info) Description 05/02/2019 Transcribed Document [facility] Radiology 1 [place] [id number] ProviderLuciano MD Social History Tobacco Use Types [...] - [facility] Aiyana ProviderMD - 05/02/2019 1:32 PM [...] at home: Medicines ??? Take or apply vfxx-cjx-jvisoqy and prescription medicines only as told by [...] cannot use soap and water, use hand credentialer. ? Change your bandage as told by [...] 12/26/2008 Document Revised: 08/24/2016 Document Reviewed: 09/06/2015 [employer] Interactive Patient Education ? 2019 Elsevier Inc. [...] and water are not available, use hand credentialer. ? Change your dressing as told by [...] or a bad smell. Medicines ??? Take ytij-txw-sfmsrmy and prescription medicines only as told by [...] urine clear or pale yellow. ? Take wrhh-yxh-zgsqgik or prescription medicines. ? Eat foods that [...] 10/06/2005 Document Revised: 11/02/2016 Document Reviewed: 09/03/2016 [employer] Interactive Patient Education ? 2019 [employer] documented in this encounter Plan of Treatment Not on file documented as of this encounter Visit Diagnoses Not on filedocumented in this encounter
--- OUTSIDE RECORDS SUMMARY | 2025-03-19 10:17 | XMS_ITS | Encounter Summary ---
Author Organization [employer] ([place], [place], [place], [place], [place]) Address [address] [place] [address] Care Team Providers Care Circulating Process Inspector Name Role Phone Unavailable Primary Care Provider Unavailabl e Encounter Details Date Type Department Care Team (Late st Contact Info) Description 05/01/2019 Transcribed Document [facility] 1 [place] [address] Provider, Luciano Bronson MD Social [...] [facility] Aiyana ProviderMD - 05/01/2019 3:26 PM EST On Going Discharge Planning Entered On: 05/01/2019 14:26 EST Performed On: 05/01/2019 14:26 EST by MERLINE NEWMAN RN-Supervisor Water Treatment PlantProgram Strategist Progress Note Discharge Arrangements : Patient Post-Acute Information Patient Name: GERTRUDIS DALY Gender: Female : [birth year] Age: 63 Years No Post-Acute Placement(s) Listed No Post-Acute Service(s) Listed No [place] Referral(s) Listed Discharge Options Discussed with Patient : Short term rehabilitation Barriers to Discharge Identified : Clinical Condition of Patient Barriers to Discharge Unresolved : Clinical Condition of Patient MERLINE NEWMAN RN-Supervisor Water Treatment Plant - 05/01/2019 14:26 EST Narrative Progress Note Narrative Progress Note : [facility] precert still pend Historical Progress Note : Urology consulted for neurogenic bladder. Pt's choices of [facility] are not in network with pt's payor source. D/W pt at bedside. She has chose [facility] now. Referral sent via Tc and informed Colleene. Precert intitated for acute. CM will continue to follow. ROMELIA MCADAMS RN-Supervisor Water Treatment Plant - 04/29/19 15:26:05 MERLINE NEWMAN, RN-Supervisor Water Treatment Plant - 05/01/2019 14:26 EST Electronically signed by Carito [facility] Conversion Sheet Metal Insulator Cerner at 08/23/2022 11:19 AM CDT documented in this encounter Plan of Treatment Not on file documented as of this encounter Visit Diagnoses Not on filedocumented in this encounter
--- OUTSIDE RECORDS SUMMARY | 2025-03-19 10:17 | XMS_ITS | Encounter Summary ---
Author Organization [employer] ([place], [place], [place], [place], [place]) Address [address] [place] [address] Care Team Providers Care Morning Nanny Name Role Phone Unavailable Primary Care Provider Unavailabl e Encounter Details Date Type Department Care Team (Late st Contact Info) Description 04/30/2019 Transcribed Document [facility] [address] [place] [address] Provider, Luciano Bronson MD Social [...] [facility] Aiyana ProviderMD - 04/30/2019 8:06 AM EST UM Authorization Entered On: 04/30/2019 7:07 EST Performed On: 04/30/2019 7:06 EST by Dayna Rios, Child Care Coordinator Primary Insurance Authorization Authorization and Policy Numbers : Insurance 1 Health Plan: [employer] MEDICARE REPL Policy Number: [id number] Authorization Number: [id number] Insurance Primary Name : Tanya [id number] Authorization Status-Primary : Admit approved Authorization Number-Primary : [id number] Number of Days Authorized-Primary : 5 Day(s) [...] 2: call back from tameka lui with [facility] requesting clinical be faxed to [phone]. clinical faxed per [employer]ner (Gali Newman, Rn-Utilization Review 04/28/2019 15:17) Comment 3: lvm with brigette lui with tanya for c/s . acb (Gali Newman, Rn-Utilization Review 04/28/2019 13:51) Comment 4: clinicals faxed via [employer] for cont stay (only 1 day approved) (BULMARO DUONG, RN-Utilization Review 04/26/2019 13:11) Comment 5: per [facility] inpt approved 1 day auth# [id number] (FRANCY MILIAN, Application Support Administrator 04/24/2019 13:26) Dayna Rios, Child Care Coordinator - 04/30/2019 7:06 EST documented in this encounter Plan of Treatment Not on file documented as of this encounter Visit Diagnoses Not on filedocumented in this encounter
--- OUTSIDE RECORDS SUMMARY | 2025-03-19 10:18 | XMS_ITS | Encounter Summary ---
Author Organization [employer] ([place], [place], [place], [place], [place]) Address [address] [place] [address] Care Team Providers Care Inside Meter Tester Name Role Phone Unavailable Primary Care Provider Unavailabl e Encounter Details Date Type Department Care Team (Late st Contact Info) Description 05/01/2019 Transcribed Document [facility] Radiology [address] [place] [address] Provider, Luciano Bronson MD Social [...] - [facility] Aiyana ProviderMD - 05/01/2019 12:50 PM [...] YOANNA GUERRERO, PT - 05/01/2019 11:50 EST Long-Term Goals Mobility/Bed Mobility LTG PT Grid Goal #1 Goal #2 Activity : Supine to sit Sit to stand Assist : Independent, modified Supervision or set-up Equipment : Rail, bed Walker, front wheel Date to Meet : 05/10/2019 EST 05/10/2019 EST Goal Status : Goal met Goal met Date Met : 04/28/2019 EST 04/28/2019 YOANNA RIDLEY, PT - 05/01/2019 11:50 EST YOANNA GUERRERO, [...]
--- OUTSIDE RECORDS SUMMARY | 2025-03-19 10:18 | XMS_ITS | Encounter Summary ---
Author Organization [employer] ([place], [place], [place], [place], [place]) Address [address] [place] [address] Care Team Providers Care Lumber Planer Name Role Phone Unavailable Primary Care Provider Unavailabl e Encounter Details Date Type Department Care Team (Late st Contact Info) Description 04/24/[address] [facility] [address] [place] [address] ProviderLuciano MD Social History Tobacco [...] [facility] Aiyana ProviderMD - 04/24/2019 2:26 PM EST UM Authorization Entered On: 04/24/2019 13:27 EST Performed On: 04/24/2019 13:26 EST by FRANCY MILIAN Back Stayer Primary Insurance Authorization Authorization and Policy Numbers : Insurance 1 Health Plan: [employer] MEDICARE REPL Policy Number: [id number] Authorization Number: [id number] Insurance Primary Name : [facility] [id number] Authorization Status-Primary : Admit approved Authorization Number-Primary : [id number] Authorized Service Begin Date-Primary : 04/25/2019 EST Authorization Comments-Primary : per [employer] inpt approved 1 day auth# [id number] Historical Authorization Comments-Primary : No Authorization Comments Found FRANCY MILIAN, Back Stayer - 04/24/2019 13:26 EST documented in this encounter Plan of Treatment Not on file documented as of this encounter Visit Diagnoses Not on filedocumented in this encounter
--- OUTSIDE RECORDS SUMMARY | 2025-03-19 10:18 | XMS_ITS | Encounter Summary ---
Author Organization [employer] ([place], [place], [place], [place], [place]) Address [address] [place] [address] Care Team Providers Care Supervisor Power Reactor Name Role Phone Unavailable Primary Care Provider Unavailabl e Encounter Details Date Type Department Care Team (Late st Contact Info) Description 05/01/2019 Transcribed Document [facility] Radiology [address] [place] [address] Karina Murphy MD [facility] [address] [address] Social History Tobacco Use Types [...] 5 dayas before bladder training. [facility]. No f'/c/s. No n/v/d. (+) [...] (APR 30 21:00) Resp Rate 16 (MAY 01:) 15 (APR 30 18:22) 17 (APR 30 13:37) SBP 113 (MAY 01:) 113 (MAY 01:) 130 (APR 30:00) DBP 64 (MAY 01:32) 63 (APR 30 18:22) 70 (APR 30 13:37) MAP 76 (MAY 01:) 76 (MAY 01:32) 93 (APR 30:00) SpO2 95 (APR 30:) 94 (APR 30 [...] Results (Current Encounter/Past 24 Hours) Bun/Creatinine 36.0 AR 05/01/2019 05:26 Creatinine Level 0.50 mg/dL LOW 05/01/2019 05:26 eGFR NonAfrican >60 mL/min/1.73m2 05/01/2019 05:26 eGFR >60 mL/min/1.73m2 05/01/2019 05:26 Sodium Level 137 mmol/L 05/01/2019 05:26 Potassium Level 3.7 mmol/L 05/01/2019 05:26 Chloride Level 105 mmol/L 05/01/2019 05:26 Carbon Dioxide Level 28 mmol/L 05/01/2019 05:26 Anion Gap 8 LOW 05/01/2019 05:26 Blood Urea Nitrogen 18 mg/dL 05/01/2019 05:26 Glucose Level 152 mg/dL AR 05/01/2019 05:26 Calcium Level 9.1 mg/dL 05/01/2019 05:26 Magnesium Level 2.3 mg/dL 04/30/2019 10:53 Coagulation Results (Current Encounter/Past 24 Hours) No Coagulation Results Found (Past 24 Hours) Creatinine Clearance (Current Encounter/Past 24 Hours) Creatinine Level 0.50 mg/dL LOW 05/01/2019 05:26 Bun/Creatinine 36.0 AR 05/01/2019 05:26 Labs Most Recent Last 28 [...] to atelectasis hypokalemia- improved post replacement. PLAN [facility] transfer today No further Potassium replacement Urology [...]
--- OUTSIDE RECORDS SUMMARY | 2025-03-19 10:18 | XMS_ITS | Encounter Summary ---
Author Organization [employer] ([place], [place], [place], [place], [place]) Address [address] [place] [address] Care Team Providers Care Purchasing Associate Name Role Phone Unavailable Primary Care Provider Unavailabl e Encounter Details Date Type Department Care Team (Late st Contact Info) Description 05/02/2019 Transcribed Document [facility] Radiology 1 [place] [address] Provider, Luciano Bronson MD Social [...] - [facility] Aiyana ProviderMD - 05/02/2019 1:41 PM EST Final Discharge Planning Entered On: 05/02/2019 12:43 EST Performed On: 05/02/2019 12:41 EST by ROMELIA MCADAMS RN-Chemistry Quality Control Analyst Final Discharge Planning Discharge Arrangements : Patient [...] Home Health Services (Related/SOC within 3 days)-06 ROMLEIA MCADAMS, RN-Chemistry Quality Control Analyst - 05/02/2019 12:41 EST Final Narrative Note Final Narrative Note : Precrt denied for acute rehab at [facility]. PT dc'd pt yesterday stating she met all inpatient goals and ambulating 380ft. CM discussed with pt aND SPOUSE AT BEDSIDE.pT WILL LIKELY BE DENIED SUBACUTE WELL. 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 Mattie WITH vna WAS ABLE TO PLACE PT WITH [facility]. FRW and BSC obtained from [email or web address] and have been delivered. No other CM need identified. ROMELIA MCADAMS RN-Chemistry Quality Control Analyst - 05/02/2019 12:41 EST documented in this encounter Plan of Treatment Not on file documented as of this encounter Visit Diagnoses Not on filedocumented in this encounter
--- OUTSIDE RECORDS SUMMARY | 2025-03-19 10:18 | XMS_ITS | Encounter Summary ---
Author Organization [employer] ([place], [place], [place], [place], [place]) Address [address] [place] [address] Care Team Providers Care Curator Horticultural Museum Name Role Phone Unavailable Primary Care Provider Unavailabl e Encounter Details Date Type Department Care Team (Late st Contact Info) Description 05/01/2019 Transcribed Document [facility] Neurology - [address] [place] [id number] Lane Ortiz Jr., MD [address] [place] [address] [address] [place] [address] Social History Tobacco Use Types Packs/Day Years [...] 100 mg= 2 Cap, Oral, TID Metamucil [place] Smooth Texture Sugar Free, 1 Packet, Oral, [...] Lymph # 1.90 x10(3)/uL 05/01/2019 03:10 EST [place] % 7.5 % 05/01/2019 03:10 EST [place] # 0.62 K/uL 05/01/2019 03:10 EST Eos [...]
--- OUTSIDE RECORDS SUMMARY | 2025-03-19 10:18 | XMS_ITS | Encounter Summary ---
Author Organization [employer] ([place], [place], [place], [place], [place]) Address [address] [place] [address] Care Team Providers Care Manufacturing Engineering Professor Name Role Phone Unavailable Primary Care Provider Unavailabl e Encounter Details Date Type Department Care Team (Late st Contact Info) Description 05/02/2019 Transcribed Document [facility] 1 [place] [address] ProviderLuciano MD Social History Tobacco [...] [facility] Aiyana ProviderMD - 05/02/2019 1:41 PM EST Stroke/Warfarin Instructions Entered On: 05/02/2019 12:41 EST Performed On: 05/02/2019 12:41 EST by Ericka Wharton RN Stroke/Warfarin Instructions Stroke/TIA Discharge Ins : N/A Warfarin Discharge Ins : N/A Ericka Wharton RN - 05/02/2019 12:41 EST documented in this encounter Plan of Treatment Not on file documented as of this encounter Visit Diagnoses Not on filedocumented in this encounter
--- OUTSIDE RECORDS SUMMARY | 2025-03-19 10:18 | XMS_ITS | Clinical Summary ---
Author Organization [facility] Address [address] [place] [address] Care Team Providers Care Rounding Machine Tender Name Role Phone Ev Augustin VASILE Primary Care Provider [phone] Allergies Active Allergy Reactions Criticality Noted Date [...] Density Scan 1955 [facility]-/Child/Adol SDOH Screenings 1955 [id number] Vaccine (#1) 06/[birth year]/1957 [facility]- SDOH Screenings 1974 [facility]-Adult SDOH Screenings 1974 CT Colonography 2001 Colonoscopy 2001 FIT-DNA 2001 FIT 2001 FOBT 2001 Sigmoidoscopy 2001 [facility]-Colorectal Cancer Screening 2001 [facility]-RSV Vaccine: 60+ Years or (1 - Risk 50-74 years 1-dose series) 2006 [facility]-Zoster Vaccines (1 of 2) 2006 [facility]-Pneumococcal Vaccine: 50+ Years (2 of 2 - PCV) 05/08/2017 05/08/2016 [facility]-Depression Screening 11/07/2024 11/08/2023 [facility]-Influenza Vaccine (#1) 12/01/202402/27, 02/08/2018, 01/28/2016, Additional history exists [facility]-DTaP,Tdap,and Td Vaccines (2 - Td or Tdap) 05/07/2025 05/07/2015 [facility]-Breast Cancer Screening 06/11/202505/31, 06/12/2023, 09/28/2021, Additional history exists [facility]-Hepatitis C Screening Completed 11/08/2023 [facility]-Obesity Intervention Completed 11/08/2023 HPV Vaccines (No Doses Required) Completed [facility]-HIB Vaccines Aged Out No longer e [...] Negative Negative 11/08/2023 4:13 PM EDT [facility] Blood Venous blood specimen / Unknown Venipuncture / Unknown 11/08/2023 1:57 PM EDT 11/08/2023 2:01 PM EDT us Denis Hudson NURSE LAB BLOOD ORDERABLES Final Res ult Performing Organization Address City/State/[facility] Co de Phone Number [facility]ALTH[facility]ARE [facility] [address] [place] [address] from Last 3 Months or Most Recently Relevant to Health Maintenance Insurance Care Teams Rounding Machine Tender Relationship Specialty Start Date End Date Ev Augustin APRN [address] [place] [address] PCP - General 08/13/20
--- OUTSIDE RECORDS SUMMARY | 2025-03-19 10:18 | XMS_ITS | Encounter Summary ---
Author Organization [employer] ([place], [place], [place], [place], [place]) Address [address] [place] [address] Care Team Providers Care Racking Technician Name Role Phone Unavailable Primary Care Provider Unavailabl e Encounter Details Date Type Department Care Team (Late st Contact Info) Description 05/02/2019 Transcribed Document [facility] Radiology [address] [place] [address] ProviderLuciano MD Social History Tobacco [...] [facility] Aiyana ProviderMD - 05/02/2019 8:10 PM [...]
--- OUTSIDE RECORDS SUMMARY | 2025-03-19 10:18 | XMS_ITS | Encounter Summary ---
Author Organization [employer] ([place], [place], [place], [place], [place]) Address [address] [place] [address] Care Team Providers Care Mining Detail Draftsperson Name Role Phone Unavailable Primary Care Provider Unavailabl e Encounter Details Date Type Department Care Team (Late st Contact Info) Description 05/02/2019 Transcribed Document [facility] Radiology [address] [place] [address] Provider, [facility] MD Aiyana Social History Tobacco Use [...] - [facility] Aiyana ProviderMD - 05/02/2019 4:44 PM EST [facility] [address] [place] [id number] GERTRUDIS DALY :1955 Visit Time:04/25/2019 Your Visit [...] Services: [facility]-- Medical Equipment for Home Use: [facility]--[phone] Diet after Discharge: Resume usual diet as [...] EST Where: [facility] [address] [place] [address]- Follow Up with MELIZA DOWNS When 05/22/2019 11:00 AM EST Comments See appointment card Where: [address] (SUNDAY ONLY) [place] [address]- Business (1) Follow Up with MELIZA DOWNS When 05/08/2019 01:00 PM EST Comments See appointment card Where: [address] (SUNDAY ONLY) [place] [address]- Business (1) Follow Up with [...] at home: Medicines ??? Take or apply hbcd-nse-glxqqxa and prescription medicines only as told by [...] cannot use soap and water, use hand streetcar motorman. ? Change your bandage as told by [...] 12/26/2008 Document Revised: 08/24/2016 Document Reviewed: 09/06/2015 [employer] Interactive Patient Education ?? 2019 [employer] Laminectomy, Care After This sheet gives [...] and water are not available, use hand streetcar motorman. ? Change your dressing as told by [...] or a bad smell. Medicines ??? Take avuq-per-elktktp and prescription medicines only as told by [...] urine clear or pale yellow. ? Take vhes-tve-emqmfii or prescription medicines. ? Eat foods that [...] 10/06/2005 Document Revised: 11/02/2016 Document Reviewed: 09/03/2016 [employer] Interactive Patient Education ?? 2019 Per [employer]. cyclobenzaprine (demetria young) Amrix, Comfort Pac with [...] may report side effects to FDA at 7-138-FXU-6475. What other drugs will affect cyclobenzaprine? Using [...] drugs may affect cyclobenzaprine, including prescription and kntt-zcb-qdcafvu medicines, vitamins, and herbal products. Not all [...] to ensure that the information provided by [employer]. ('Cleo') is accurate, up-to-date, and complete, but no guarantee is made to that effect. Drug information contained herein may be time sensitive. Cleo information has been compiled for use by healthcare practitioners and consumers in the [place] and therefore Cleo does not warrant that uses outside of the [place] are appropriate, unless specifically indicated otherwise. [employer] drug information does not endorse drugs, diagnose patients or recommend therapy. [employer] drug information is an informational resource designed [...] effective or appropriate for any given patient. Cleo does not assume any responsibility for any aspect of healthcare administered with the aid of information Cleo provides. The information contained herein is not intended to cover all possible uses, directions, precautions, warnings, drug interactions, allergic reactions, or adverse effects. If you have questions about the drugs you are taking, check with your doctor, nurse or pharmacist. Copyright 7686-7993 [employer]. Version: 5.01. Revision Date: 12/26/2017. pregabalin (pre [...] may report side effects to FDA at 1-096-LGI-5512. What other drugs will affect pregabalin? Using [...] drugs may affect pregabalin, including prescription and skkc-xwu-ogicgge medicines, vitamins, and herbal products. Not all [...] to ensure that the information provided by [employer]. ('Cleo') is accurate, up-to-date, and complete, but no guarantee is made to that effect. Drug information contained herein may be time sensitive. Cleo information has been compiled for use by healthcare practitioners and consumers in the [place] and therefore Cleo does not warrant that uses outside of the [place] are appropriate, unless specifically indicated otherwise. [employer] drug information does not endorse drugs, diagnose patients or recommend therapy. [employer] drug information is an informational resource designed [...] effective or appropriate for any given patient. Cleo does not assume any responsibility for any aspect of healthcare administered with the aid of information Cleo provides. The information contained herein is not intended to cover all possible uses, directions, precautions, warnings, drug interactions, allergic reactions, or adverse effects. If you have questions about the drugs you are taking, check with your doctor, nurse or pharmacist. Copyright 1499-6273 [employer]. Version: 8.01. Revision Date: 09/11/2017. acetaminophen and [...] may report side effects to FDA at 8-710-TKC-2341. What other drugs will affect acetaminophen and [...] affect acetaminophen and oxycodone, including prescription and npiu-oyf-uogqjnc medicines, vitamins, and herbal products. Not all [...] to ensure that the information provided by [employer]. ('Multum') is accurate, up-to-date, and complete, but no guarantee is made to that effect. Drug information contained herein may be time sensitive. Cleo information has been compiled for use by healthcare practitioners and consumers in the [place] and therefore Cleo does not warrant that uses outside of the [place] are appropriate, unless specifically indicated otherwise. Cleo's drug information does not endorse drugs, diagnose patients or recommend therapy. [employer] drug information is an informational resource designed [...] effective or appropriate for any given patient. Cleo does not assume any responsibility for any aspect of healthcare administered with the aid of information Cleo provides. The information contained herein is not intended to cover all possible uses, directions, precautions, warnings, drug interactions, allergic reactions, or adverse effects. If you have questions about the drugs you are taking, check with your doctor, nurse or pharmacist. Copyright 8439-8239 [employer]. Version: 18.02. Revision Date: 02/27/2018. Emergency Awareness [...] Assistance with quitting is available by contacting 0-606-URJL-NOW. This is a free resource providing counseling, support, and referral. Or you may contact your personal physician. Cuff-Protect Suicide Prevention Lifeline: The National Suicide Prevention [...] range between ( 11.7 and 14.9 ) [place] Percent Man: 8 % -- Normal range [...] range between ( 0.0 and 7.0 ) [place] #: 0.62 K/uL -- Normal range between ( 0.16 and 1.00 ) Eos #: 0.28 x10(3)/uL -- Normal range between ( 0.00 and 0.80 ) [place] %: 7.5 % -- Normal range between [...] ) Urine Bilirubin Dipstick: Negative Urine Specific [place]: >1.030 -- Normal range between ( 1.005 and 1.030 ) Urine Type.: U Cath 04/15/2019 8:26 AM Urine Type: U [place] [facility] 04/25/2019 8:37 AM ABO/Rh Repeat: [...] was given the opportunity to ask questions. Patient/It Service Delivery Manager Name: Patient/It Service Delivery Manager Signature: Relationship to Patient: Clinician/Hospital It Service Delivery Manager Signature: Date: Electronically signed by Carito, [facility] Conversion Sand Caster Apprentice Cerner at 08/23/2022 11:19 AM CDT documented in this encounter Plan of Treatment Not on file documented as of this encounter Visit Diagnoses Not on filedocumented in this encounter
--- OUTSIDE RECORDS SUMMARY | 2025-03-19 10:18 | XMS_ITS | Encounter Summary ---
Author Organization [employer] ([place], [place], [place], [place], [place]) Address [address] [place] [address] Care Team Providers Care Commercial Engineer Name Role Phone Unavailable Primary Care Provider Unavailabl e Encounter Details Date Type Department Care Team (Late st Contact Info) Description 05/05/2019 Transcribed Document [facility] Radiology [address] [place] [address] Provider, Luciano Bronson MD Social [...] - [facility] Aiyana ProviderMD - 05/05/2019 3:05 PM EST UM Authorization Entered On: 05/05/2019 14:05 EST Performed On: 05/05/2019 14:05 EST by Dayna Rios, Senior Teradata Developer Primary Insurance Authorization Authorization and Policy Numbers : Insurance 1 Health Plan: [employer] MED[employer] REPL Policy Number: [id number] Authorization Number: [id number] Insurance Primary Name : Mariela [id number] Authorization Status-Primary : Admit approved Auth/Referral Contact Name-Primary : DC Authorization Number-Primary : [id number] Number of Days Authorized-Primary : 8 Day(s) Authorized Service Begin Date-Primary : 04/25/2019 EST Authorized Service End Date-Primary : 05/03/2019 EST Authorization Comments-Primary : Discharge date and summary faxed. Historical Authorization Comments-Primary : Comment 1: c/s auth approved per brigette for 05/01 to 05/02. nrd 05/03 (Gali Newman, Rn-Utilization Review 05/02/2019 08:47) Comment 2: Authorized per fax 04/29/2019 @ 1530. Approved x5 days (6 total: 04/25-04/30). Next review due on 05/01/2019. Tameka Davidson RN. (Dayna Rios, Senior Teradata Developer 04/30/2019 07:06) Comment 3: clinical faxed per cerner for 04/27 and 04/28 (Gali Newman, Rn-Utilization Review 04/28/2019 15:19) Comment 4: call back from tameka lui with [employer] requesting clinical be faxed to [phone]. clinical faxed per cerner (Gali Newman, Rn-Utilization Review 04/28/2019 15:17) Comment 5: lvm with brigette lui with [employer] for c/s . acb (Gali Newman, Rn-Utilization Review 04/28/2019 13:51) Comment 6: clinicals faxed via cerner for cont stay (only 1 day approved) (BULMARO DUONG, RN-Utilization Review 04/26/2019 13:11) Comment 7: per [facility]AR inpt approved 1 day auth# [id number] (FRANCY MILIAN, Communications Controller 04/24/2019 13:26) Dayna Rios, Senior Teradata Developer - 05/05/2019 14:05 EST Electronically signed by Carito [facility] Conversion Custody Officer Cerner at 08/23/2022 11:19 AM CDT documented in this encounter Plan of Treatment Not on file documented as of this encounter Visit Diagnoses Not on filedocumented in this encounter
--- OUTSIDE RECORDS SUMMARY | 2025-03-19 10:19 | XMS_ITS | Encounter Summary ---
Author Organization [employer] ([place], [place], [place], [place], [place]) Address [address] [place] [address] Care Team Providers Care Electrical And Instrument Mechanic Name Role Phone Unavailable Primary Care Provider Unavailabl e Encounter Details Date Type Department Care Team (Late st Contact Info) Description 04/23/2019 Transcribed Document [facility] Radiology [address] [place] [address] Provider, Luciano Bronson MD Social [...] Conversion Note - [facility] Aiyana Provider, - 04/23/2019 1:00 PM EST [facility] Main OR PACU Summary Primary Physician: MELIZA DOWNS [facility] Finalized Date/Time: 04/23/19 18:34:36 Pt. Name: GERTRUDIS DALY /Sex: 1955 Female Med Rec #: [id number] Physician: MELIZA DOWNS MD-[facility] Financial #: [id number] Pt. Type: O Room/Bed: Admit/Disch: 04/23/19 10:57:00 - 04/23/19 18:25:00 Institution: [facility] Main OR PACU I Case Times Entry 1 In PACU I 04/23/19 16:50:00 Ready for PACU 04/23/19 18:00:00 Discharge Discharge from PACU 04/23/19 18:03:00 I Last Modified By: Ev Parada RN 04/23/19 18:34:11 [facility] Main OR PACU I Case Times Audit 04/23/19 18:34:11 Rag Grader: [id number] Modifier: [id number] <+> 1 Ready for PACU Discharge <+> 1 Discharge from PACU I Finalized By: Ev Parada RN Document Signatures Signed By: Ev Parada RN 04/23/19 18:34 Electronically signed by Carito [facility] Conversion Journeyman Power Plant Operator Cerner at 08/23/2022 11:19 AM CDT documented in this encounter Plan of Treatment Not on file documented as of this encounter Visit Diagnoses Not on filedocumented in this encounter
--- OUTSIDE RECORDS SUMMARY | 2025-03-19 10:19 | XMS_ITS | Encounter Summary ---
Author Organization [employer] ([place], [place], [place], [place], [place]) Address [address] [place] [address] Care Team Providers Care Charter Representative Name Role Phone Unavailable Primary Care Provider Unavailabl e Encounter Details Date Type Department Care Team (Late st Contact Info) Description 04/23/2019 Transcribed Document [facility] [address] [place] [address] Provider, Luciano Bronson MD Social History Tobacco Use Types Packs/Day Years Used Date Smoking Tobacco: Never Assessed Comments Unknown Sex and Gender Information Value Date Recorded Sex Assigned at Not on file Legal Sex Female 6:01 PM CDT Gender Identity Not on file Sexual Orientation Not on file documented as of this encounter Miscellaneous Notes * Cerner Conversion Note - [facility] Aiyana ProviderMD - 04/23/2019 7:03 PM [...]
--- OUTSIDE RECORDS SUMMARY | 2025-03-19 10:19 | XMS_ITS | Encounter Summary ---
Author Organization [employer] ([place], [place], [place], [place], [place]) Address [address] [place] [address] Care Team Providers Care Owner Consulting Engineer Name Role Phone Unavailable Primary Care Provider Unavailabl e Encounter Details Date Type Department Care Team (Late st Contact Info) Description 04/25/2019 Transcribed Document [facility] [address] [place] [address] Provider, [facility] MD Aiyana Social History Tobacco [...] - [facility] Aiyana ProviderMD - 04/25/2019 1:05 PM EST [facility] Main OR IntraOp Summary Primary Physician: MELIZA DOWNS MD-SNU Finalized Date/Time: 04/27/19 12:47:33 Pt. Name: KANG DALYGHANSHYAM Gilbert /Sex: 1955 Female Med Rec #: [id number] Physician: MELIZA DOWNS MD-NIYA Financial #: [id number] Pt. Type: I Room/Bed: [facility] Admit/Disch: 04/25/19 06:38:00 - Institution: [facility] IntraOp Case Attendance Entry 1 Entry 2 Entry 3 Case Attendee MELIZA DOWNS MD-SNU Burdine, Teresa A, RN BRADY, CHRISTINA M, RN Role Performed Surgeon/Proceduralist, Quantitative Associate, First Quantitative Associate, First First Time In 04/25/19 11:21:00 04/25/19 11:21:00 04/25/19 11:21:00 Time Out 04/25/19 17:43:00 04/25/19 17:43:00 04/25/19 12:15:00 Procedure Lumbar Laminectomy Lumbar Laminectomy Lumbar Laminectomy Other Attendee lunch relief Superficial Wound Closed By: Last Modified By: Lida Mitchell RN Burdine, Teresa A, Lida Ho, IAN 04/25/19 17:44:12 04/25/19 17:44:12 04/25/19 17:44:12 Entry 4 Entry 5 Entry 6 Case Attendee JACKSON PATTERSON, [facility] Oscar MONAHAN Mark, DAHLIA BURRIS-JEB Role Performed Scrub, First Physician bankruptcy legal assistant LASTEX THREAD WINDER/Nurse Strategy Execution Consultant Time In 04/25/19 11:21:00 04/25/19 11:21:00 04/25/19 [...] TSAI MD-Courtney Arenas, OTHER, ATTENDEE #1 Diagnostic Shirt Creaser Role Performed Anesthesiologist of Associate Professor Of Education Other Record Time In 04/25/19 11:21:00 04/25/19 [...] WASSON, SANDRA D RN Technologist Role Performed Associate Professor Of Education Scrub, Second Time In 04/25/19 13:10:00 04/25/19 13:00:00 Time Out 04/25/19 14:38:00 04/25/19 14:15:00 Procedure Lumbar Laminectomy Lumbar Laminectomy Other Attendee LUNCH RELIEF Superficial Wound Closed By: Last Modified By: Lida Mitchell, RN Lida Mitchell RN 04/25/19 17:44:12 04/25/19 17:44:12 [facility] IntraOp Case Attendance Audit 04/25/19 17:44:12 Tailor Apprentice: [id number] Modifier: [id number] <+> Time Out 1 <*> Procedure [...] 11 <*> Procedure Lumbar Laminectomy 04/25/19 16:08:03 Tailor Apprentice: [id number] Modifier: [id number] <+> Time Out 3 <*> Procedure Lumbar Laminectomy 04/25/19 14:51:38 Tailor Apprentice: [id number] Modifier: [id number] <+> Time Out 10 <*> Procedure Lumbar Laminectomy 04/25/19 14:16:00 Tailor Apprentice: [id number] Modifier: [id number] <+> Time Out 11 <*> Procedure Lumbar Laminectomy 04/25/19 13:35:44 Tailor Apprentice: [id number] Modifier: [id number] <+> 10 Case Attendee <+> 10 Role Performed <+> 10 Time In <+> 10 Procedure <+> 10 Other Attendee <+> 11 Case Attendee <+> 11 Role Performed <+> 11 Time In <+> 11 Procedure 04/25/19 12:44:43 Tailor Apprentice: [id number] Modifier: [id number] <+> 1 Procedure 2 <*> Procedure Lumbar Laminectomy 3 <*> Procedure Lumbar Laminectomy 4 <*> Procedure Lumbar Laminectomy 5 <*> Procedure Lumbar Laminectomy 6 <*> Procedure Lumbar Laminectomy 7 <*> Procedure Lumbar Laminectomy 8 <*> Procedure Lumbar Laminectomy 9 <*> Procedure Lumbar Laminectomy 04/25/19 12:43:20 Tailor Apprentice: [id number] Modifier: [id number] <*> Procedure Lumbar Laminectomy 3 <*> Procedure Lumbar Laminectomy 4 <*> Procedure Lumbar Laminectomy 5 <*> Procedure Lumbar Laminectomy 6 <*> Procedure Lumbar Laminectomy 7 <*> Procedure Lumbar Laminectomy 8 <*> Procedure Lumbar Laminectomy 9 <+> Time In 9 <*> Procedure Lumbar Laminectomy 04/25/19 12:25:13 Tailor Apprentice: [id number] Modifier: [id number] <*> Procedure Lumbar Laminectomy 3 <*> Procedure Lumbar Laminectomy 4 <*> Procedure Lumbar Laminectomy 5 <*> Procedure Lumbar Laminectomy 6 <*> Procedure Lumbar Laminectomy 7 <*> Procedure Lumbar Laminectomy 8 <+> Time In 8 <*> Procedure Lumbar Laminectomy <+> 9 Case Attendee <+> 9 Role Performed <+> 9 Procedure <+> 9 Other Attendee 04/25/19 12:23:07 Tailor Apprentice: [id number] Modifier: [id number] <+> 1 Time In 2 <+> Time [...] <+> 8 Role Performed <+> 8 Procedure [facility] IntraOp Case Times Entry 1 Patient In Room Time 04/25/19 11:21:00 Out Room Time 04/25/19 17:43:00 Anesthesia Start Time 04/25/19 11:21:00 Stop Time 04/25/19 17:43:00 Surgery / Procedure Times Start Time 04/25/19 12:05:00 Stop Time 04/25/19 17:29:00 Last Modified By: Lida Mitchell RN 04/25/19 17:43:33 [facility] IntraOp Case Times Audit 04/25/19 17:43:33 Tailor Apprentice: [id number] Modifier: [id number] <+> 1 Out Room Time <+> 1 Stop Time <+> 1 Stop Time [facility] IntraOp Cautery Entry 1 Entry 2 ESU Identification Cautery Type Monopolar ESU BiPolar ESU Cautery Type Comments ID Number [id number] ID Type Hospital Number Hospital Number Cautery [...] Teresa A, RN 04/25/19 12:24:11 04/25/19 12:25:58 [facility] IntraOp Cautery Audit 04/25/19 12:25:58 Tailor Apprentice: [id number] Modifier: [id number] <+> 2 Cautery Type <+> 2 Coag Setting <+> 2 Cut Setting <+> 2 ID Number <+> 2 ID Type [facility] IntraOp Communication Entry 1 Entry 2 Entry [...] Modified By: Lida Mitchell RN 04/25/19 16:58:34 [facility] IntraOp Communication Audit 04/25/19 16:58:34 Tailor Apprentice: [id number] Modifier: [id number] <*> Comment CLOSING 04/25/19 16:33:59 Tailor Apprentice: [id number] Modifier: [id number] <+> 3 Communication By <+> 3 Date and Time <+> 3 Communication To <+> 3 Comment <+> 4 Communication By <+> 4 Date and Time <+> 4 Communication To <+> 4 Comment 04/25/19 13:43:33 Tailor Apprentice: [id number] Modifier: [id number] <+> 2 Communication By <+> 2 Date and Time <+> 2 Communication To <+> 2 Comment [facility] IntraOp Counts Verification Entry 1 Procedure Lumbar Laminectomy Count Info Count Type Sponge, Sharps, Miscellaneous Counts Verification Baseline/pre-procedure Sequence Counts Performed By Count Performed By JACKSON PATTERSON ST (Scrub) Count Performed By Lida Mitchell RN (RN) Last Modified By: Lida Mitchell RN 04/25/19 12:07:52 [facility] IntraOp Counts Final Entry 1 Procedure Lumbar Laminectomy Final Count Info Count Type Sponge, Sharps, Miscellaneous Counts Verification Skin Closure/end of Sequence procedure Count Results Correct, surgeon notified Counts Performed By Count Performed By JACKSON PATTERSON ST (Scrub) Count Performed By Lida Mitchell RN (RN) Last Modified By: Lida Mitchell RN 04/25/19 17:43:58 [facility] IntraOp Counts Final Audit 04/25/19 17:43:58 Tailor Apprentice: [id number] Modifier: [id number] Entry 1 was deleted. Higher numbered entries shifted one position to fill the gap. <-> 1 Procedure Lumbar Laminectomy <-> 1 Count Type Sponge, Sharps, Miscellaneous <-> 1 Count Results Correct, surgeon notified <-> 1 Count Performed By (Scrub) JACKSON PATTERSON ST <-> 1 Count Performed By (RN) Lida Mitchell RN <-> 1 Counts Verification Sequence 04/25/19 17:43:46 Tailor Apprentice: [id number] Modifier: [id number] <+> 2 Procedure <+> 2 Count Type <+> 2 Count Results <+> 2 Count Performed By (Scrub) <+> 2 Count Performed By (RN) <+> 2 Counts Verification Sequence [facility] IntraOp Cultures and Spec Summary Entry 1 Cultrures and Specimens Specimen Ordered: Yes Test(s) Frozen Requested/Final Section(s)/Path-Lab Disposition Last Modified By: Lida Mitchell RN 04/25/19 17:43:50 General Comments: A. NEOPLASM OF SPINE B. SONAPET CONTENTS C. CAUDA EQUINA TUMOR [facility] IntraOp Cultures and Spec Summary Audit 04/25/19 17:43:50 Tailor Apprentice: [id number] Modifier: [id number] <*> Specimen Ordered: [facility] IntraOp Departure from OR Entry 1 Integumentary Assessment Integumentary WDL Assessment WDL Transfer/Handoff Transfer to PACU Phase I Handoff Method Phone call Post-op Transport Stretcher/Gurney Via Patient Transport AISHA MONAHAN, Accompanied by ASHER JENKINS, Vu Moore, MARY Last Modified By: Lida Mitchell RN 04/25/19 12:26:34 [facility] IntraOp Dressing and Packing Entry 1 Type Dressing Location OPSITE Wound Dressing Item Occlusive dressing Applied By ALICE MAR PA-INT Last Modified By: Lida Mitchell RN 04/25/19 12:27:03 [facility] IntraOp Fire Risk Assessment Entry 1 Fire [...] Modified By: Lida Mitchell RN 04/25/19 12:27:34 [facility] IntraOp General Case Casing Splitter 1 Case Information OR OR 09 [facility] Case Level 1 Room Verified Yes Wound Class I - Clean Specialty SN Neurosurgery ASA Class 3 Diagnosis 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 Postop Same As Preop No Postop Diagnosis SEE MD POST OP NOTE Last Modified By: Lida Mitchell RN 04/25/19 12:33:13 [facility] IntraOp Implant Log Entry 1 Type Implant (Synthetic) Implant Log Implant Type Mesh Implant GRAFT MATRIX DURA Identification [id number] Description Implant Quantity 1 Implant Site OPSITE Implant [id number] Identification Lot Number Implant Med[employer] Surgical Identification Navigation Manager Operations Name: Implant [id number] Identification Catalog Number Implant Has an Yes Expiration Date Implant Expiration 05/30/21 Date Tissue Implant Last Modified By: Lida Mitchell RN 04/25/19 16:47:01 [facility] IntraOp Intraoperative Assessment Entry 1 Handoff Reported [...] Modified By: Lida Mitchell RN 04/25/19 12:34:19 [facility] IntraOp Intraoperative Assessment Audit 04/25/19 12:34:19 Tailor Apprentice: [id number] Modifier: [id number] <*> Present Upon Arrival to OR IVs [facility] IntraOp Intraoperative Equipment Entry 1 Type Equipment Equipment Equipment Ambreen Suction System Setting 200MMHG Intraop Monitoring Electrocardiogram Five lead placement (ECG) Electrode Placement Blood Pressure Arterial Pressure Line Source Pulse Oximeter Hand, left Probe Site Antiembolic Devices Antiembolic Devices Sequential compression device, knee high Antiembolic Device Bilateral Location Scopes Photo/Video Documentation Photo No Video No Last Modified By: Lida Mitchell RN 04/25/19 12:39:08 [facility] IntraOp Medication Admin Entry 1 Entry 2 Entry 3 Medication/Irrigant neomycin/bacitracin/poly thrombin 5,000 unit pwd FLSEAL VHSD FULL mixin 15 gm oint STRLPREP [id number] Combo Med List Time Administered Route of [...] Entry 5 Medication/Irrigant SEALANT DURASL SPINE FLSEAL [facility] FULL [id number] STRLPREP [id number] Combo Med List Time Administered Route of TOPICAL TOPICAL Administration Dose Dose 5 10 Unit of Measure ml ml Volume Administered By MELIZA DOWNS MD-MELIZA MAYFIELD MD-SNU Procedure Irrigation Irrigant Volume In Irrigant Volume Out Last Modified By: Lida Mitchell RN Burdine, Teresa A, RN 04/25/19 13:47:01 04/25/19 16:58:55 [facility] IntraOp Medication Admin Audit 04/25/19 16:58:55 Tailor Apprentice: [id number] Modifier: [id number] <+> 5 Medication/Irrigant <+> 5 Route of Administration <+> 5 Administered By <+> 5 Dose <+> 5 Unit of Measure 04/25/19 13:47:01 Tailor Apprentice: [id number] Modifier: [id number] <+> 4 Medication/Irrigant <+> 4 Route of Administration <+> 4 Administered By <+> 4 Dose <+> 4 Unit of Measure 04/25/19 13:01:17 Tailor Apprentice: [id number] Modifier: [id number] <+> 3 Medication/Irrigant <+> 3 Route of Administration <+> 3 Administered By <+> 3 Dose <+> 3 Unit of Measure [facility] IntraOp Patient Positioning Entry 1 Procedure Lumbar [...] Chest, Roll, Hip Positioned By MELIZA DOWNS MD-NIYA, Lida Mitchell RN, ARYAN TIRADO RN, ALICE MAR, ASHER, uV Moore CRNA Position Verified Positioning Yes Verified by Anesthesia Positioning Yes Verified by Surgeon Last Modified By: Lida Mitchell RN 04/25/19 12:43:00 [facility] IntraOp Sign In Entry 1 Patient, Site, [...] Modified By: Lida Mitchell RN 04/25/19 12:43:17 [facility] IntraOp Sign Out Entry 1 RN Confirmation [...] Modified By: Lida Mitchell RN 04/25/19 17:44:08 [facility] IntraOp Sign Out Audit 04/25/19 17:44:08 Tailor Apprentice: [id number] Modifier: [id number] <+> 1 RN Sign Out Signature Date/Time [facility] IntraOp Skin Prep Entry 1 Procedure Lumbar Laminectomy Prescribed Yes Pre-Surgical Prep Completed Prep Area OPSITE Intraop Prep Integumentary WDL Assessment WDL Prep Agents Chloraprep Prep by Lida Mitchell RN Hair Removal Methods No hair removal performed Last Modified By: Lida Mitchell RN 04/25/19 12:44:40 [facility] IntraOp Surgical Procedures Entry 1 Procedure Lumbar Laminectomy Additional (LUMBAR LAMINECTOMY Procedure WITH RESECTION Description /DEBULKING OF INTRA DURAL CAUDE EQUINA TUMOR) Primary Procedure Yes Primary Surgeon MELIZA DOWNS MD-SNU Start 04/25/19 12:05:00 Stop 04/25/19 17:29:00 Anesthesia Type General Specialty SN Neurosurgery Wound Class I - Clean Last Modified By: Lida Mitchell RN 04/25/19 17:44:10 [facility] IntraOp Surgical Procedures Audit 04/25/19 17:44:10 Tailor Apprentice: [id number] Modifier: [id number] <+> 1 Stop [facility] IntraOp Temp Regulation Devices Entry 1 Temp Regulation Temperature Forced Air Warming Regulation Device device, Warm blankets Temperature Upper body Regulation Site Temperature Device 43 Setting Temperature Oscar, Vu, LASTEX THREAD WINDER Regulation Device Applied by Temperature PATIENT'S TEMPERATURE Regulation Comment MONITORED BY ANESTHESIA Last Modified By: Lida Mitchell RN 04/25/19 12:45:34 [facility] IntraOP Time Out Entry 1 Procedure to [...] Modified By: Lida Mitchell RN 04/25/19 12:05:42 [facility] IntraOp X-Ray and Images Entry 1 X-Ray/Imaging Type Fluoroscopy Fluoroscopy Type C-Arm Site OPSITE Director Sales And Trade Marketing Name Ev Toro RN-Educator I Protective Devices Yes Used Last Modified By: Lida Mitchell RN 04/25/19 12:52:48 Case Comments <None> Finalized By: PRIYANKA CLAYTON Document Signatures Signed By: Lida Mitchell RN 04/25/19 17:44 PRIYANKA CLAYTON 04/27/19 12:47 Unfinalized History Date/Time Username Reason for Unfinalizing Freetext Reason for Unfinalizing 04/27/19 12:36 WATSHERI Correct Billing documented in this encounter Plan of Treatment Not on file documented as of this encounter Visit Diagnoses Not on filedocumented in this encounter
--- OUTSIDE RECORDS SUMMARY | 2025-03-19 10:19 | XMS_ITS | Referral Summary ---
Author Organization [employer] [facility] ([place], [place], [place], [place], [place]) Address [address] [place] [address] Care Team Providers Care Book Mender Name Role Phone Unavailable Primary Care Provider [...]
--- OUTSIDE RECORDS SUMMARY | 2025-03-19 10:19 | XMS_ITS | Encounter Summary ---
Author Organization [employer] ([place], [place], [place], [place], [place]) Address [address] [place] [address] Care Team Providers Care Child Welfare Specialist Name Role Phone Unavailable Primary Care Provider Unavailabl e Encounter Details Date Type Department Care Team (Late st Contact Info) Description 04/30/2019 Transcribed Document [facility] Radiology [address] [place] [address] Karina Murphy MD [facility] [address] [address] Social History Tobacco Use Types [...] incentive spirometer. says trying to go to [facility] HPI: 63 y/o WF admitted [...] mg/dL 04/30/2019 05:35 Glucose Level 146 mg/dL MO 04/30/2019 05:35 Calcium Level 8.9 mg/dL 04/30/2019 [...] Results (Current Encounter/Past 24 Hours) Bun/Creatinine 32.0 MO 04/30/2019 05:35 Creatinine Level 0.50 mg/dL LOW 04/30/2019 05:35 eGFR NonAfrican >60 mL/min/1.73m2 04/30/2019 05:35 eGFR >60 mL/min/1.73m2 04/30/2019 05:35 Sodium Level 138 mmol/L 04/30/2019 05:35 Potassium Level 3.4 mmol/L LOW 04/30/2019 05:35 Chloride Level 107 mmol/L 04/30/2019 05:35 Carbon Dioxide Level 27 mmol/L 04/30/2019 05:35 Anion Gap 7 LOW 04/30/2019 05:35 Blood Urea Nitrogen 16 mg/dL 04/30/2019 05:35 Glucose Level 146 mg/dL MO 04/30/2019 05:35 Calcium Level 8.9 mg/dL 04/30/2019 05:35 Coagulation Results (Current Encounter/Past 24 Hours) No Coagulation Results Found (Past 24 Hours) Creatinine Clearance (Current Encounter/Past 24 Hours) Creatinine Level 0.50 mg/dL LOW 04/30/2019 05:35 Bun/Creatinine 32.0 MO 04/30/2019 05:35 Estimated Creatinine Clearance 92.27 mL/Min [...]
--- OUTSIDE RECORDS SUMMARY | 2025-03-19 10:19 | XMS_ITS | Encounter Summary ---
Author Organization [employer] ([place], [place], [place], [place], [place]) Address [address] [place] [address] Care Team Providers Care Solar Thermal Technician Name Role Phone Unavailable Primary Care Provider Unavailabl e Encounter Details Date Type Department Care Team (Late st Contact Info) Description 04/23/2019 Transcribed Document [facility] [address] [place] [id number] ProviderLuciano MD Social History Tobacco Use Types Packs/Day Years Used Date Smoking Tobacco: Never Assessed Comments Unknown Sex and Gender Information Value Date Recorded Sex Assigned at Not on file Legal Sex Female 6:01 PM CDT Gender Identity Not on file Sexual Orientation Not on file documented as of this encounter Miscellaneous Notes * Cerner Conversion Note - Jim Aiyana Ang MD - 04/23/2019 5:07 PM [...] activities are safe for you. ??? Take aoha-piq-gqpqmac and prescription medicines only as told by [...] 06/25/2001 Document Revised: 11/02/2017 Document Reviewed: 11/02/2017 [employer] Interactive Patient Education ? 2019 [employer]. Magnetic Resonance Imaging Magnetic resonance imaging (MRI) [...] including vitamins, herbs, eye drops, creams, and pcot-raz-tiozvwf medicines. What are the risks? Generally, MRI [...] 05/14/2014 Elsevier Interactive Patient Education ? 2017 [employer] documented in this encounter Plan of Treatment Not on file documented as of this encounter Visit Diagnoses Not on filedocumented in this encounter
--- OUTSIDE RECORDS SUMMARY | 2025-03-19 10:19 | XMS_ITS | Encounter Summary ---
Author Organization [employer] ([place], [place], [place], [place], [place]) Address [address] [place] [address] Care Team Providers Care Press Manager Name Role Phone Unavailable Primary Care Provider Unavailabl e Encounter Details Date Type Department Care Team (Late st Contact Info) Description 04/25/2019 Transcribed Document [facility] [address] [place] [address] ProviderLuciano MD Social History Tobacco Use Types Packs/Day Years Used Date Smoking Tobacco: Never Assessed Comments Unknown Sex and Gender Information Value Date Recorded Sex Assigned at Not on file Legal Sex Female 6:01 PM CDT Gender Identity Not on file Sexual Orientation Not on file documented as of this encounter Miscellaneous Notes * Cerner Conversion Note - [facility] Aiyana ProviderMD - 04/25/2019 6:44 PM [...] form. Electronically signed by Luciano Arzate Conversion Mechanical Spreader Operator Cerner at 08/23/2022 11:19 AM CDT documented in this encounter Plan of Treatment Not on file documented as of this encounter Visit Diagnoses Not on filedocumented in this encounter
--- OUTSIDE RECORDS SUMMARY | 2025-03-19 10:19 | XMS_ITS | Encounter Summary ---
Author Organization [employer] ([place], [place], [place], [place], [place]) Address [address] [place] [address] Care Team Providers Care Molder Wax Ball Name Role Phone Unavailable Primary Care Provider Unavailabl e Encounter Details Date Type Department Care Team (Late st Contact Info) Description 04/25/2019 Transcribed Document [facility] [address] [place] [address] Provider, Luciano Bronson MD Social [...] [facility] Aiyana ProviderMD - 04/25/2019 6:45 PM [...] of the form. Electronically signed by Carito, Luciano Conversion Clinical Nursing Coordinator Cerner at 08/23/2022 11:19 AM CDT documented in this encounter Plan of Treatment Not on file documented as of this encounter Visit Diagnoses Not on filedocumented in this encounter
--- OUTSIDE RECORDS SUMMARY | 2025-03-19 10:19 | XMS_ITS | Encounter Summary ---
Author Organization [employer] ([place], [place], [place], [place], [place]) Address [address] [place] [address] Care Team Providers Care Police Chief Deputy Name Role Phone Unavailable Primary Care Provider Unavailabl e Encounter Details Date Type Department Care Team (Late st Contact Info) Description 04/25/2019 Transcribed Document [facility] Radiology [address] [place] [address] ProviderLuciano MD Social History Tobacco [...] [facility] Aiyana ProviderMD - 04/25/2019 10:00 PM EST [...]
--- OUTSIDE RECORDS SUMMARY | 2025-03-19 10:19 | XMS_ITS | Encounter Summary ---
Author Organization [employer] ([place], [place], [place], [place], [place]) Address [address] [place] [address] Care Team Providers Care Wax Machine Operator Name Role Phone Unavailable Primary Care Provider Unavailabl e Encounter Details Date Type Department Care Team (Late st Contact Info) Description 04/23/2019 Transcribed Document [facility] Radiology [address] [place] [address] Provider, yvon Bronson MD Social [...] - [facility] Aiyana ProviderMD - 04/23/2019 7:04 PM EST [facility] [place] [address] GERTRUDIS DALY :1955 Visit Time:04/23/2019 Your Visit Summary Your Care Team Admitting Physician - MELIZA DOWNS MD-SNU Attending Physician - MELIZA DOWNS MD-SNU Primary Care Physician - LULY URIBE NP-JEB Referring Physician - LULY URIBE NP-[place], ROBERT D, MD-SNU Discharge Vitals Temperature 36.6 ??C Heart Rate (Monitored) 63 Respiratory Rate 18 Blood Pressure 150/73 What to do next Instructions From Your Care Team No driving for 24 hours. Follow-Up Appointments Follow Up with MELIZA DOWNS MD-SNU When Within 2 to 3 days Comments Call for follow up appointment for results. Where: [address] [facility] [address] [place] [id number]- Medications What How Much When Instructions Next [...] activities are safe for you. ??? Take ijhn-vnc-lgddrnx and prescription medicines only as told by [...] 06/25/2001 Document Revised: 11/02/2017 Document Reviewed: 11/02/2017 [employer] Interactive Patient Education ?? 2019 [employer] Magnetic Resonance Imaging Magnetic resonance imaging [...] including vitamins, herbs, eye drops, creams, and ttxo-oms-uubnltf medicines. What are the risks? Generally, MRI [...] 03/16/2001 Document Revised: 08/21/2016 Document Reviewed: 05/14/2014 [employer] Interactive Patient Education ?? 2017 [employer] Emergency Awareness and Preventative Care STROKE [...] Assistance with quitting is available by contacting 6-902-YVDWNOW. This is a free resource providing counseling, [...] was given the opportunity to ask questions. Patient/Manager Housekeeping Name: Patient/Manager Housekeeping Signature: Relationship to Patient: Clinician/Hospital Manager Housekeeping Signature: Date: Electronically signed by Interface, [facility] Conversion Customer Order Clerk Curtis at 08/23/2022 11:19 AM CDT documented in this encounter Plan of Treatment Not on file documented as of this encounter Visit Diagnoses Not on filedocumented in this encounter
--- OUTSIDE RECORDS SUMMARY | 2025-03-19 10:19 | XMS_ITS | Encounter Summary ---
Author Organization [employer] ([place], [place], [place], [place], [place]) Address [address] [place] [address] Care Team Providers Care Fruit Rancher Name Role Phone Unavailable Primary Care Provider Unavailabl e Encounter Details Date Type Department Care Team (Late st Contact Info) Description 04/15/2019 Transcribed Document [facility] 1 [place] [address] Provider, Luciano Bronson MD Social [...] [facility] Aiyana ProviderMD - 04/15/2019 10:16 AM EST [...] Source : Measured Height Entry Format : [place] Height, Feet : 5 ft(Converted to: 152 cm, 60 Inch) Height, Inches : 2 Inch(Converted to: 0 ft 2 Inch, 5.08 cm) Clinical Height : 157.48 cm Weight Source : Standing scale Weight Entry Format : [place] Clinical Dosing Weight : 82.14 kg Weight, Pounds : 180.7 lb Body Surface Area (BSA) : 1.83 m2 Body Mass Index : 33.1 kg/m2 (HI) [place] Body Weight : 50 kg TIA SHARMA [...] (Last Updated: 04/15/2019 09:19:33 EST by TIA SHARMA RN) Alcohol: Alcohol Use Comment none. (Last [...] TIA SHARMA RN - 04/15/2019 9:16 EST [place] Suicide Severity Rating Scale (C-SSRS) CSSRS Past [...] #2 Relationship : daughter Primary Language : Tongan Preferred Communication Mode : Verbal Communication Barrier [...] 04/15/2019 9:16 EST Electronically signed by Carito [facility] Conversion Digital Librarian Cerner at 08/23/2022 11:18 AM CDT documented in this encounter Plan of Treatment Not on file documented as of this encounter Visit Diagnoses Not on filedocumented in this encounter
--- OUTSIDE RECORDS SUMMARY | 2025-03-19 10:19 | XMS_ITS | Encounter Summary ---
Author Organization [employer] ([place], [place], [place], [place], [place]) Address [address] [place] [address] Care Team Providers Care Program Management Intern Name Role Phone Unavailable Primary Care Provider Unavailabl e Encounter Details Date Type Department Care Team (Late st Contact Info) Description 04/23/2019 Transcribed Document [facility] 1 [place] [address] Provider, Luciano Bronson MD Social History Tobacco Use Types Packs/Day Years Used Date Smoking Tobacco: Never Assessed Comments Unknown Sex and Gender Information Value Date Recorded Sex Assigned at Not on file Legal Sex Female 6:01 PM CDT Gender Identity Not on file Sexual Orientation Not on file documented as of this encounter Miscellaneous Notes * Cerner Conversion Note - [facility] Aiyana ProviderMD - 04/23/2019 12:37 PM EST Pre Procedure Adult Entered On: 04/23/2019 11:40 EST Performed On: 04/23/2019 11:37 EST by CHRISTOPHER MONTIEL RN Height and Weight, Clinical Dosing Height Source : Stated Height Entry Format : [place] Height, Feet : 5 ft(Converted to: 152 cm, 60 Inch) Height, Inches : 2 Inch(Converted to: 0 ft 2 Inch, 5.08 cm) Clinical Height : 157.48 cm Weight Source : Standing scale Weight Entry Format : [place] Clinical Dosing Weight : 81.82 kg Weight, Pounds : 180 lb Body Surface Area (BSA) : 1.83 m2 Body Mass Index : 33 kg/m2 (HI) [place] Body Weight : 50 kg CHRISTOPHER MONTIEL [...] : None Tuberculosis Symptoms : None CHRISTOPHER MONITEL RN - 04/23/2019 11:37 EST Anesthesia/Transfusion History [...] CHRISTOPHER MONTIEL RN - 04/23/2019 11:37 EST [place] Suicide Severity Rating Scale (C-SSRS) CSSRS Past [...] Navarro-Friend Support Person/Pt Rep Contact Information : [phone] Want Family/Rep/Phys Notified of Admit : No Emergency Contact #1 : . Emergency Contact #1 Phone Number : . Emergency Contact #1 Relationship : . Emergency Contact #2 : . Emergency Contact #2 Phone Number : . Emergency Contact #2 Relationship : . Primary Language : Bahamian Preferred Communication Mode : Verbal Communication Barrier [...] Scale Risk Level : 0-24 Low Risk [place] Fall Interventions : Adequate lighting, Assistive devices [...]
--- OUTSIDE RECORDS SUMMARY | 2025-03-19 10:19 | XMS_ITS | Encounter Summary ---
Author Organization [employer] ([place], [place], [place], [place], [place]) Address [address] [place] [address] Care Team Providers Care Test Boring Crew Chief Name Role Phone Unavailable Primary Care Provider Unavailabl e Encounter Details Date Type Department Care Team (Late st Contact Info) Description 04/25/2019 Transcribed Document [facility] Radiology 1 [place] [address] Provider, yvon Bronson MD Social [...] [facility] Aiyana ProviderMD - 04/25/2019 1:05 PM EST [facility] Main OR Preop Summary Primary Physician: MELIZA DOWNS [facility] Finalized Date/Time: 04/25/19 13:08:43 Pt. Name: GERTRUDIS DALY /Sex: 1955 Female Med Rec #: [id number] Physician: MELIZA DOWNS MD-[facility] Financial #: [id number] Pt. Type: I Room/Bed: ASA/1 Admit/Disch: 04/25/19 06:38:00 - Institution: [facility] PreOp Case Times Entry 1 In Preop 04/25/19 07:51:00 Ready for Holding n/a Room Patient Ready for 04/25/19 09:28:00 Surgery Patient Out of Preop 04/25/19 11:14:00 Patient Out of n/a Holding Room Last Modified By: CHRISTELLE MCCORD RN 04/25/19 13:08:36 [facility] PreOp Case Times Audit 04/25/19 13:08:36 Weight Checker: EMILIE Modifier: [email or web address] <+> 1 Patient Out of Preop 04/25/19 09:28:42 Weight Checker: EMILIE Modifier: [email or web address] <+> 1 Patient Ready for Surgery Finalized By: CHRISTELLE MCCORD V., RN Document Signatures Signed By: CHRISTELLE MCCORD RN 04/25/19 13:08 Electronically signed by Carito [facility] Conversion Motor Pool Clerk Cerner at 08/23/2022 11:18 AM CDT documented in this encounter Plan of Treatment Not on file documented as of this encounter Visit Diagnoses Not on filedocumented in this encounter
--- OUTSIDE RECORDS SUMMARY | 2025-03-19 10:19 | XMS_ITS | Encounter Summary ---
Author Organization [employer] ([place], [place], [place], [place], [place]) Address [address] [place] [address] Care Team Providers Care Ladle Filler Name Role Phone Unavailable Primary Care Provider Unavailabl e Encounter Details Date Type Department Care Team (Late st Contact Info) Description 04/25/2019 Transcribed Document [facility] 1 [place] [address] ProviderLuciano MD Social History Tobacco [...] Yudy Jay RN - 04/27/2019 8:44 EST documented in this encounter Plan of Treatment Not on file documented as of this encounter Visit Diagnoses Not on filedocumented in this encounter
--- OUTSIDE RECORDS SUMMARY | 2025-03-19 10:19 | XMS_ITS | Encounter Summary ---
Author Organization [employer] ([place], [place], [place], [place], [place]) Address [address] [place] [address] Care Team Providers Care Unit Assistant Name Role Phone Unavailable Primary Care Provider Unavailabl e Encounter Details Date Type Department Care Team (Late st Contact Info) Description 04/26/2019 Transcribed Document [facility] Neurology - [facility] [address] [place] [address] [address] [place] [address] Meliza Downs Jr., MD [address] [place] [address] [address] [place] [address] Social History Tobacco Use Types Packs/Day Years [...]
--- OUTSIDE RECORDS SUMMARY | 2025-03-19 10:20 | XMS_ITS | Encounter Summary ---
Author Organization [employer] ([place], [place], [place], [place], [place]) Address [address] [place] [address] Care Team Providers Care Box Puller Name Role Phone Unavailable Primary Care Provider Unavailabl e Encounter Details Date Type Department Care Team (Late st Contact Info) Description 04/25/2019 Transcribed Document [facility] Radiology 1 [place] [address] Provider, Luciano Bronson MD Social History Tobacco Use Types Packs/Day Years Used Date Smoking Tobacco: Never Assessed Comments Unknown Sex and Gender Information Value Date Recorded Sex Assigned at Not on file Legal Sex Female 6:01 PM CDT Gender Identity Not on file Sexual Orientation Not on file documented as of this encounter Miscellaneous Notes * Cerner Conversion Note - [facility] Aiyana ProviderMD - 04/25/2019 6:44 [...] lami with resection on 04/25/19. FLORES JONES OTR/L - 04/26/2019 13:53 EST Visit Type, OT [...] FLORES JONES OTR/Ofelia - 04/26/2019 13:53 EST Academic Records Specialist Goals, OT Grooming LTG Grid Goal #1 [...] FLORES JONES OTR/Ofelia - 04/26/2019 13:53 EST [place] OT Charges OT Eval Moderate Complexity : 1 FLORES JONES OTR/Ofelia - 04/26/2019 13:53 EST Electronically signed by Luciano [employer] Conversion Elastic Attacher Coverstitch Cerner at 08/23/2022 11:19 AM CDT documented in this encounter Plan of Treatment Not on file documented as of this encounter Visit Diagnoses Not on filedocumented in this encounter
--- OUTSIDE RECORDS SUMMARY | 2025-03-19 10:20 | XMS_ITS | Encounter Summary ---
Author Organization [employer] ([place], [place], [place], [place], [place]) Address [address] [place] [address] Care Team Providers Care Security Incident Response Specialist Name Role Phone Unavailable Primary Care Provider Unavailabl e Encounter Details Date Type Department Care Team (Late st Contact Info) Description 04/25/2019 Transcribed Document [facility] Radiology 1 [place] [address] Provider, Luciano Bronson MD Social [...] - [facility] Aiyana ProviderMD - 04/25/2019 10:03 AM [...] Anesthesiologist Procedure Case Attendee Role 2 : boiler/chiller operator Case Attendee 2 : RICARDO Rojas RN Procedure Case Attendee Role 3 : boiler/chiller operator Case Attendee 3 : JACKIE PERALTA RN [...]
--- OUTSIDE RECORDS SUMMARY | 2025-03-19 10:20 | XMS_ITS | Encounter Summary ---
Author Organization [employer] ([place], [place], [place], [place], [place]) Address [address] [place] [address] Care Team Providers Care Equipment Tester Name Role Phone Unavailable Primary Care Provider Unavailabl e Encounter Details Date Type Department Care Team (Late st Contact Info) Description 04/25/2019 Transcribed Document [facility] 1 [place] [address] Provider, Luciano Bronson MD Social [...] [facility] Aiyana ProviderMD - 04/25/2019 7:38 AM [...] mom Support Person/Pt Rep Contact Information : [phone] Want Family/Rep/Phys Notified of Admit : No Emergency Contact #1 : [place] Emergency Contact #1 cell Emergency Contact #1 Relationship : Emergency Contact #2 : Kandi Burt Emergency Contact #2 cell Emergency Contact #2 Relationship : daughter Primary Language : Armenian Preferred Communication Mode : Verbal Communication Barrier [...] Scale Risk Level : 25-45 Medium Risk [place] Fall Interventions : Adequate lighting, Assistive devices [...] Source : Measured Height Entry Format : [place] Height, Feet : 5 ft(Converted to: 152 cm, 60 Inch) Height, Inches : 2 Inch(Converted to: 0 ft 2 Inch, 5.08 cm) Clinical Height : 157.48 cm Weight Source : Standing scale Weight Entry Format : [place] Clinical Dosing Weight : 82.14 kg Weight, Pounds : 180.7 lb Body Surface Area (BSA) : 1.83 m2 Body Mass Index : 33.1 kg/m2 (HI) [place] Body Weight : 50 kg Daniela Buckner [...] Daniela Buckner RN - 04/25/2019 19:52 EST [place] Suicide Severity Rating Scale (C-SSRS) CSSRS Past [...] 04/25/2019 19:52 EST Electronically signed by Carito [facility] Conversion Felt Hat Inspector And Packer Cerner at 08/23/2022 11:19 AM CDT documented in this encounter Plan of Treatment Not on file documented as of this encounter Visit Diagnoses Not on filedocumented in this encounter
--- OUTSIDE RECORDS SUMMARY | 2025-03-19 10:20 | XMS_ITS | Encounter Summary ---
Author Organization [employer] ([place], [place], [place], [place], [place]) Address [address] [place] [address] Care Team Providers Care Shipper Receiver Name Role Phone Unavailable Primary Care Provider Unavailabl e Encounter Details Date Type Department Care Team (Late st Contact Info) Description 04/25/2019 Transcribed Document [facility] Radiology 1 [place] [address] Provider, Luciano Bronson MD Social [...] - [facility] Aiyana ProviderMD - 04/25/2019 6:44 [...] : Pain Rehabilitation Potential : Fair AGUILA DANIESL, PT - 04/26/2019 13:19 EST Plan of [...] AGUILA DANIELS, PT - 04/26/2019 13:19 EST Skilled Nursing Goals Mobility/Bed Mobility LTG PT Grid Goal [...] 05/10/2019 EST Goal Status : Intial Goal AGUILA DANIELS, PT - 04/26/2019 13:19 EST Treatment Note [...] AGUILA DANIELS, PT - 04/26/2019 13:19 EST [place] PT Charges PT Eval Low Complexity : 1 AGUILA DANIELS, PT - 04/26/2019 13:19 EST Electronically signed by [facility] Conversion Nature Photographer Cerner at 08/23/2022 11:19 AM CDT documented in this encounter Plan of Treatment Not on file documented as of this encounter Visit Diagnoses Not on filedocumented in this encounter
--- OUTSIDE RECORDS SUMMARY | 2025-03-19 10:20 | XMS_ITS | Encounter Summary ---
Author Organization [employer] ([place], [place], [place], [place], [place]) Address [address] [place] [address] Care Team Providers Care Work Distributor Name Role Phone Unavailable Primary Care Provider Unavailabl e Encounter Details Date Type Department Care Team (Late st Contact Info) Description 04/25/2019 Transcribed Document [facility] Radiology 1 [place] [address] Provider, Luciano Bronson MD Social [...] - [facility] Aiyana ProviderMD - 04/25/2019 1:05 PM EST [facility] Main OR PACU Summary Primary Physician: MELIZA DOWNS [facility] Finalized Date/Time: 04/25/19 20:10:04 Pt. Name: GERTRUDIS DALY /Sex: 1955 Female Med Rec #: [id number] Physician: MELIZA DOWNS MD[facility] Financial #: [id number] Pt. Type: I Room/Bed: [facility]/ Admit/Disch: 04/25/19 06:38:00 - Institution: [facility] Main OR PACU I Case Times Entry [...]
--- OUTSIDE RECORDS SUMMARY | 2025-03-19 10:20 | XMS_ITS | Encounter Summary ---
Author Organization [employer] ([place], [place], [place], [place], [place]) Address [address] [place] [address] Care Team Providers Care Photographer Aerial Name Role Phone Unavailable Primary Care Provider Unavailabl e Encounter Details Date Type Department Care Team (Late st Contact Info) Description 04/25/2019 Transcribed Document [facility] Neurology - [facility] [address] [facility] [address] [place] [id number] Lane Ortiz Jr., MD [address] [place] [address] [address] [place] [address] Social History Tobacco Use Types Packs/Day Years [...] 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 MECHANICAL SERVICE SPECIALIST: Melanie Emmanuel PA-C. ANESTHESIA: Total IV anesthesia. [...] root retraction, dural closure, and wound closure. /[id number] Lane Ortiz Jr, MD RDO/AQ / RDO / MODL /[id number] documented in this encounter Plan of Treatment Not on file documented as of this encounter Visit Diagnoses Not on filedocumented in this encounter
--- OUTSIDE RECORDS SUMMARY | 2025-03-19 10:20 | XMS_ITS | Encounter Summary ---
Author Organization [employer] ([place], [place], [place], [place], [place]) Address [address] [place] [address] Care Team Providers Care Potato Pancake Frier Name Role Phone Unavailable Primary Care Provider Unavailabl e Encounter Details Date Type Department Care Team (Late st Contact Info) Description 04/25/2019 Transcribed Document [facility] Neurology - [facility] [address] [place] [address] [address] [place] [address] Meliza Downs Jr., MD [address] [place] [address] [address] [place] [address] Social History Tobacco Use Types Packs/Day Years [...]
--- OUTSIDE RECORDS SUMMARY | 2025-03-19 10:20 | XMS_ITS | Encounter Summary ---
Author Organization [employer] ([place], [place], [place], [place], [place]) Address [address] [place] [address] Care Team Providers Care Sail Finisher Machine Name Role Phone Unavailable Primary Care Provider Unavailabl e Encounter Details Date Type Department Care Team (Late st Contact Info) Description 04/26/[address] [facility] Radiology [address] [place] [address] Provider, Luciano Bronson MD Social [...] Note - [facility] Aiyana Provider, - 04/26/2019 2:31 PM [...] YOANNA GUERRERO, PT - 04/28/2019 14:54 EST Retirement Goals Mobility/Bed Mobility LTG PT [...] Training Each 15 Min : 1 YOANNA GUERRERO, PT - 04/28/2019 14:54 EST Electronically signed by Carito, [facility] Conversion Supervisor Claims Cerner at 08/23/2022 11:19 AM CDT documented in this encounter Plan of Treatment Not on file documented as of this encounter Visit Diagnoses Not on filedocumented in this encounter
== END 2025-03-19 23:59 | disposition home or self-care (01) ==
LOC: RAD 09:48
PROVIDERS: PCP Nurse Practitioner Family; Visit Provider Nurse Practitioner Family
DX: S92.335A Nondisplaced fracture of third metatarsal bone, left foot, initial encounter for closed fracture (principal); S92.345A Nondisplaced fracture of fourth metatarsal bone, left foot, initial encounter for closed fracture; W19.XXXA Unspecified fall, initial encounter
CPT/HCPCS: 73718

== ENCOUNTER 2025-03-30 09:09 | Outpatient (CLI) | payer MEDICARE, SELFPAY ==
--- NOTE | 2025-03-30 09:15 | XR_ITS ---
FINAL REPORT CLINICAL HISTORY: postmenopausal screening for osteoporosis COMPARISON: None FINDINGS: Using L1-4, the bone mineral density of the spine is 1.071 g/cm2, corresponding to T-score of 0.2, with a Z-score of 2.2. This corresponds to a normal score. Using the left hip, the bone mineral density of the femoral neck is 0.761 g/cm2, corresponding to a T-score of -0.8, and a Z-score of 0.9. This corresponds to a normal score. Using the right hip, the bone mineral density of the femoral neck is 0.849 g/cm2, corresponding to a T-score of 0.0, and a Z-score of 1.7. This corresponds to a normal score. NOTE: T-score: Standard deviation compared with peak bone mass of young adult mean. *Following the recommendations of the International Society of Bone densitometry, classification of hip BMD is based on the lower of two T-scores; total hip or femoral neck. IMPRESSION: Normal bone mineral density of the bilateral hips and lumbar spine. Reviewed, Interpreted and Dictated by Erendira Joe MD Transcribed by Sarah Jung Authenticated and [facility]
--- OUTSIDE RECORDS SUMMARY | 2025-03-30 09:19 | XMS_ITS | Encounter Summary ---
Author Organization [employer] ([place], [place], [place], [place], [place]) Address [address] [place] [address] Care Team Providers Care Catering Director Name Role Phone Unavailable Primary Care Provider Unavailabl e Encounter Details Date Type Department Care Team (Late st Contact Info) Description 04/30/2019 Transcribed Document [facility] Neurology - [address] [place] [address] Lane Ortiz Jr., MD [address] [place] [address] [address] [place] [address] Social History Tobacco Use Types Packs/Day Years [...] 100 mg= 2 Cap, Oral, TID Metamucil Stout Smooth Texture Sugar Free, 1 Packet, Oral, [...] Lymph # 1.50 x10(3)/uL 04/29/2019 09:11 EST [place] % 7.0 % 04/30/2019 03:51 EST [place] % 7.8 % 04/29/2019 09:11 EST [place] # 0.59 K/uL 04/30/2019 03:51 EST [place] # 0.71 K/uL 04/29/2019 09:11 EST [place] [...]
--- OUTSIDE RECORDS SUMMARY | 2025-03-30 09:19 | XMS_ITS | Encounter Summary ---
[facility] Organization [facility] Address [address] [place] [address] Care Team Providers Care Remediation Bioanalytics Consultant Name Role Phone Danelle Lennon APRN Primary Care Provider [phone] Encounter Details Date Type Department Care Team (Late st Contact Info) Description 06/18/2024 Results Follow-Up [facility] ENDOCRINOLOGY [facility] [address] Bridget Valdez PA-C [address] [address] Social History Tobacco Use Types Packs/Day Years [...] documented as of this encounter Care Teams Remediation Bioanalytics Consultant Relationship Specialty Start Date End Date Danelle Lennon APRN [address] [place] [address] PCP - General Internal Medicine 06/18/24 documented as of this encounter
--- OUTSIDE RECORDS SUMMARY | 2025-03-30 09:19 | XMS_ITS | Encounter Summary ---
Author Organization [facility] Address [address] [place] [address] Care Team Providers Care Emd Teacher Name Role Phone Danelle Lennon APRN Primary Care Provider [phone] Encounter Details Date Type Department Care Team (Late st Contact Info) Description 06/20/2024 Results Follow-Up [facility] ENDOCRINOLOGY [facility] [address] Ad Mazariegos MD [address] [place], [place] [address] [address] Social History Tobacco Use Types Packs/Day Years [...] documented as of this encounter Care Teams Emd Teacher Relationship Specialty Start Date End Date Danelle Lennon APRN [address] [address] [place] [address] PCP - General Internal Medicine 06/18/24 documented as of this encounter
--- OUTSIDE RECORDS SUMMARY | 2025-03-30 09:19 | XMS_ITS | Encounter Summary ---
Author Organization [employer] ([place], [place], [place], [place], [place]) Address [address] [place] [address] Care Team Providers Care Engine Manager Name Role Phone Unavailable Primary Care Provider Unavailabl e Encounter Details Date Type Department Care Team (Late st Contact Info) Description 04/30/2019 Transcribed Document [facility] [address] [place] [address] Meliza Downs Jr., MD [address] [place] [address] [address] [place] [address] Social History Tobacco Use Types Packs/Day Years [...] : 1955 Associated Diagnoses: None Author: MELIZA DWONS MD-SNU looks well this evening sequeira sback pain numbness eleft leg weakness left foot leg pain imprved from preop c/d/i no fever today rehab tomorrow i talked to pt and documented in this encounter Plan of Treatment Not on file documented as of this encounter Visit Diagnoses Not on filedocumented in this encounter
--- OUTSIDE RECORDS SUMMARY | 2025-03-30 09:19 | XMS_ITS | Encounter Summary ---
Author Organization [employer] ([place], [place], [place], [place], [place]) Address [address] [place] [address] Care Team Providers Care Automotive Product Specialist Name Role Phone Unavailable Primary Care Provider Unavailabl e Encounter Details Date Type Department Care Team (Late st Contact Info) Description 04/26/2019 Transcribed Document [facility] [address] [place] [address] ProviderLuciano MD Social History Tobacco [...] [facility] ProviderMD - 04/26/2019 6:00 AM EST Chart Check - Review Order Profile Entered On: 04/26/2019 4:20 EST Performed On: 04/26/2019 5:00 EST by Daniela Buckner RN Chart Check Powerplans Initiated/Discontinued as Appropriate : Yes All Active Orders Reviewed : Yes Daniela Buckner RN - 04/26/2019 4:20 EST Electronically signed by Carito yvon Conversion Commissioner Of Internal Revenue Cerner at 08/23/2022 11:19 AM CDT documented in this encounter Plan of Treatment Not on file documented as of this encounter Visit Diagnoses Not on filedocumented in this encounter
--- OUTSIDE RECORDS SUMMARY | 2025-03-30 09:19 | XMS_ITS | Encounter Summary ---
Author Organization [employer] ([place], [place], [place], [place], [place]) Address [address] [place] [address] Care Team Providers Care Cleaning Handyman Name Role Phone Unavailable Primary Care Provider Unavailabl e Encounter Details Date Type Department Care Team (Late st Contact Info) Description 05/01/2019 Transcribed Document [facility] Radiology [address] [place] [address] Provider, Luciano Bronson MD Social [...]
--- OUTSIDE RECORDS SUMMARY | 2025-03-30 09:19 | XMS_ITS | Encounter Summary ---
Author Organization [employer] ([place], [place], [place], [place], [place]) Address [address] [place] [address] Care Team Providers Care Transportation Job Titles Name Role Phone Unavailable Primary Care Provider Unavailabl e Encounter Details Date Type Department Care Team (Late st Contact Info) Description 05/01/2019 Transcribed Document [facility] Radiology 1 [place] [address] Karina Murphy MD [facility] [address] [address] Social History Tobacco Use Types [...] 5 dayas before bladder training. [facility]. No f'/c/s. No n/v/d. (+) [...] Results (Current Encounter/Past 24 Hours) Bun/Creatinine 36.0 UT 05/01/2019 05:26 Creatinine Level 0.50 mg/dL LOW 05/01/2019 05:26 eGFR NonAfrican >60 mL/min/1.73m2 05/01/2019 05:26 eGFR >60 mL/min/1.73m2 05/01/2019 05:26 Sodium Level 137 mmol/L 05/01/2019 05:26 Potassium Level 3.7 mmol/L 05/01/2019 05:26 Chloride Level 105 mmol/L 05/01/2019 05:26 Carbon Dioxide Level 28 mmol/L 05/01/2019 05:26 Anion Gap 8 LOW 05/01/2019 05:26 Blood Urea Nitrogen 18 mg/dL 05/01/2019 05:26 Glucose Level 152 mg/dL [place] 05/01/2019 05:26 Calcium Level 9.1 mg/dL 05/01/2019 05:26 Magnesium Level 2.3 mg/dL 04/30/2019 10:53 Coagulation Results (Current Encounter/Past 24 Hours) No Coagulation Results Found (Past 24 Hours) Creatinine Clearance (Current Encounter/Past 24 Hours) Creatinine Level 0.50 mg/dL LOW 05/01/2019 05:26 Bun/Creatinine 36.0 UT 05/01/2019 05:26 Labs Most Recent Last 28 [...] to atelectasis hypokalemia- improved post replacement. PLAN [facility] transfer today No further Potassium [...]
--- OUTSIDE RECORDS SUMMARY | 2025-03-30 09:19 | XMS_ITS | Encounter Summary ---
Author Organization [email or web address] ([place], [place], [place], [place], [place]) Address [address] [place] [address] Care Team Providers Care Roll Press Operator Name Role Phone Unavailable Primary Care Provider Unavailabl e Encounter Details Date Type Department Care Team (Late st Contact Info) Description 04/27/2019 Transcribed Document [facility] Radiology 1 [place] [address] Provider yvon Bronson MD Social [...] Note - [facility] Historical ProviderMD - 04/27/2019 6:00 PM EST Chart Check - Review Order Profile Entered On: 04/27/2019 18:57 EST Performed On: 04/27/2019 17:00 EST by SHAWNA WISE RN Chart Check Powerplans Initiated/Discontinued as Appropriate : Yes All Active Orders Reviewed : Yes SHAWNA WISE RN - 04/27/2019 18:57 EST Electronically signed by Carito [facility] Conversion [employer]crew[employer] Mechanical Cerner at 08/23/2022 11:19 AM CDT documented in this encounter Plan of Treatment Not on file documented as of this encounter Visit Diagnoses Not on filedocumented in this encounter
--- OUTSIDE RECORDS SUMMARY | 2025-03-30 09:19 | XMS_ITS | Encounter Summary ---
Author Organization [employer] ([place], [place], [place], [place], [place]) Address [address] [place] [address] Care Team Providers Care Physiognomist Name Role Phone Unavailable Primary Care Provider Unavailabl e Encounter Details Date Type Department Care Team (Late st Contact Info) Description 04/30/2019 Transcribed Document [facility] [address] [place] [address] Provider, Luciano Bronson MD Social [...] [facility] Aiyana ProviderMD - 04/30/2019 8:06 AM EST UM Authorization Entered On: 04/30/2019 7:07 EST Performed On: 04/30/2019 7:06 EST by Dayna Rios, Solutions Consultant Primary Insurance Authorization Authorization and Policy Numbers : Insurance 1 Health Plan: AETNA MEDICARE REPL Policy Number: [id number] Authorization Number: [id number] Insurance Primary Name : Tanya [id number] Authorization Status-Primary : Admit approved Authorization Number-Primary : [id number] Number of Days Authorized-Primary : 5 Day(s) [...] with aedony requesting clinical be faxed to [phone]. clinical faxed per [employer]ner (Gali Newman, Rn-Utilization Review 04/28/2019 15:17) Comment 3: lvm with brigette lui with tanya for c/s . acb (Gali Newman, Rn-Utilization Review 04/28/2019 13:51) Comment 4: clinicals faxed via [employer] for cont stay (only 1 day approved) (BULMARO DUONG, RN-Utilization Review 04/26/2019 13:11) Comment 5: per [employer] inpt approved 1 day auth# [id number] (FRANCY MILIAN, Electronics Commodity Manager 04/24/2019 13:26) Dayna Rios, Solutions Consultant - 04/30/2019 7:06 EST documented in this encounter Plan of Treatment Not on file documented as of this encounter Visit Diagnoses Not on filedocumented in this encounter
--- OUTSIDE RECORDS SUMMARY | 2025-03-30 09:19 | XMS_ITS | Encounter Summary ---
Author Organization [employer] ([place], [place], [place], [place], [place]) Address [address] [place] [address] Care Team Providers Care Tactical Intelligence Officer Name Role Phone Unavailable Primary Care Provider Unavailabl e Encounter Details Date Type Department Care Team (Late st Contact Info) Description 04/26/2019 Transcribed Document [facility] Radiology 1 [place] [address] Provider, Luciano Bronson MD [...] [facility] Aiyana ProviderMD - 04/26/2019 [...] LUCIEN JAUN, OTR/L - 05/02/2019 15:28 EST Senior Care Goals, OT Grooming LTG Grid Goal #1 [...] : pt to EOB supervision with leg logistics operations director. Sat unsupported. Given AE for LB dressing educated and demonstrated understanding. Pt educated on bathroom transfers, shower transfers, car transfers, toileting hygiene. Given tongs for toileting. Dicussed use of home bidet. Pt supervision to supine with leg logistics operations director. Assessment : pt has good understanding of [...] 05/02/2019 15:28 EST Electronically signed by Carito [facility] Conversion Studio Control Operator Cerner at 08/23/2022 11:19 AM CDT documented in this encounter Plan of Treatment Not on file documented as of this encounter Visit Diagnoses Not on filedocumented in this encounter
--- OUTSIDE RECORDS SUMMARY | 2025-03-30 09:19 | XMS_ITS | Encounter Summary ---
Author Organization [employer] ([place], [place], [place], [place], [place]) Address [address] [place] [address] Care Team Providers Care Telephone Sterilizer Name Role Phone Unavailable Primary Care Provider Unavailabl e Encounter Details Date Type Department Care Team (Late st Contact Info) Description 04/30/2019 Transcribed Document [facility] Radiology 1 [place] [address] Karina Murphy MD [facility] [address] [address] Social History Tobacco Use Types [...] incentive spirometer. says trying to go to [facility] HPI: 63 y/o WF admitted [...] mg/dL 04/30/2019 05:35 Glucose Level 146 mg/dL [place] 04/30/2019 05:35 Calcium Level 8.9 mg/dL 04/30/2019 [...] Results (Current Encounter/Past 24 Hours) Bun/Creatinine 32.0 [place] 04/30/2019 05:35 Creatinine Level 0.50 mg/dL LOW 04/30/2019 05:35 eGFR NonAfrican >60 mL/min/1.73m2 04/30/2019 05:35 eGFR >60 mL/min/1.73m2 04/30/2019 05:35 Sodium Level 138 mmol/L 04/30/2019 05:35 Potassium Level 3.4 mmol/L LOW 04/30/2019 05:35 Chloride Level 107 mmol/L 04/30/2019 05:35 Carbon Dioxide Level 27 mmol/L 04/30/2019 05:35 Anion Gap 7 LOW 04/30/2019 05:35 Blood Urea Nitrogen 16 mg/dL 04/30/2019 05:35 Glucose Level 146 mg/dL [place] 04/30/2019 05:35 Calcium Level 8.9 mg/dL 04/30/2019 05:35 Coagulation Results (Current Encounter/Past 24 Hours) No Coagulation Results Found (Past 24 Hours) Creatinine Clearance (Current Encounter/Past 24 Hours) Creatinine Level 0.50 mg/dL LOW 04/30/2019 05:35 Bun/Creatinine 32.0 [place] 04/30/2019 05:35 Estimated Creatinine Clearance 92.27 mL/Min [...]
--- OUTSIDE RECORDS SUMMARY | 2025-03-30 09:19 | XMS_ITS | Encounter Summary ---
Author Organization [employer] ([place], [place], [place], [place], [place]) Address [address] [place] [address] Care Team Providers Care Regulatory Services Consultant Name Role Phone Unavailable Primary Care Provider Unavailabl e Encounter Details Date Type Department Care Team (Late st Contact Info) Description 04/26/2019 Transcribed Document [facility] 1 [place] [address] ProviderLuciano MD Social History Tobacco [...] [facility] Aiyana ProviderMD - 04/26/2019 8:56 AM EST UM Authorization Entered On: 04/26/2019 7:57 EST Performed On: 04/26/2019 7:56 EST by BULMARO DUONG RN-Utilization Review Primary Insurance Authorization Authorization and Policy Numbers : Insurance 1 Health Plan: AETNA MEDICARE REPL Policy Number: [id number] Authorization Number: [id number] Insurance Primary Name : [facility] [id number] Authorization Status-Primary : Admit approved Authorization Number-Primary : [id number] Authorized Service Begin Date-Primary : 04/25/2019 EST Historical Authorization Comments-Primary : Comment 1: per [facility] inpt approved 1 day auth# [id number] (FRANCY MILIAN, Automotive Teacher 04/24/2019 13:26) BULMARO DUONG RN-Utilization Review - 04/26/2019 7:56 EST Electronically signed by Carito [facility] Conversion Registered Nurse Cardiac Cerner at 08/23/2022 11:18 AM CDT documented in this encounter Plan of Treatment Not on file documented as of this encounter Visit Diagnoses Not on filedocumented in this encounter
--- OUTSIDE RECORDS SUMMARY | 2025-03-30 09:19 | XMS_ITS | Encounter Summary ---
Author Organization [employer] ([place], [place], [place], [place], [place]) Address [address] [place] [address] Care Team Providers Care Director Of Clinical Services Name Role Phone Unavailable Primary Care Provider Unavailabl e Encounter Details Date Type Department Care Team (Late st Contact Info) Description 04/15/2019 Transcribed Document [facility] Radiology 1 [place] [address] Provider, Luciano Bronson MD Social [...] [facility] Aiyana ProviderMD - 04/15/2019 10:16 AM [...] Source : Measured Height Entry Format : [place] Height, Feet : 5 ft(Converted to: 152 cm, 60 Inch) Height, Inches : 2 Inch(Converted to: 0 ft 2 Inch, 5.08 cm) Clinical Height : 157.48 cm Weight Source : Standing scale Weight Entry Format : [place] Clinical Dosing Weight : 82.14 kg Weight, Pounds : 180.7 lb Body Surface Area (BSA) : 1.83 m2 Body Mass Index : 33.1 kg/m2 (HI) [place] Body Weight : 50 kg TIA SHARMA [...] TIA SHARMA RN - 04/15/2019 9:16 EST [place] Suicide Severity Rating Scale (C-SSRS) CSSRS Past [...] 04/15/2019 9:16 EST Legal Guardian : Spouse RICRADO Rojas RN - 04/25/2019 8:26 EST Want Family/Rep/Phys Notified of Admit : No Emergency Contact #1 : Michelle Gonzalez Emergency Contact #1 cell Emergency Contact #1 Relationship : Emergency Contact #2 : Kandi Burt Emergency Contact #2 cell Emergency Contact #2 Relationship : daughter Primary Language : [place]ore[place] Preferred Communication Mode : Verbal Communication Barrier [...] 04/15/2019 9:16 EST Electronically signed by Carito [facility] Conversion Food And Beverage Director Cerner at 08/23/2022 11:18 AM CDT documented in this encounter Plan of Treatment Not on file documented as of this encounter Visit Diagnoses Not on filedocumented in this encounter
--- OUTSIDE RECORDS SUMMARY | 2025-03-30 09:19 | XMS_ITS | Encounter Summary ---
Author Organization [employer] ([place], [place], [place], [place], [place]) Address [address] [place] [address] Care Team Providers Care Biofuels Manager Name Role Phone Unavailable Primary Care Provider Unavailabl e Encounter Details Date Type Department Care Team (Late st Contact Info) Description 04/27/2019 Transcribed Document [facility] Radiology 1 [place] [id number] Alverto Murphy MD [facility] [address] [address] Social History Tobacco Use Types [...]
--- OUTSIDE RECORDS SUMMARY | 2025-03-30 09:19 | XMS_ITS | Encounter Summary ---
Author Organization [employer] ([place], [place], [place], [place], [place]) Address [address] [place] [address] Care Team Providers Care Piling Cutter Name Role Phone Unavailable Primary Care Provider Unavailabl e Encounter Details Date Type Department Care Team (Late st Contact Info) Description 04/27/2019 Transcribed Document [facility] 1 [place] [address] ProviderLuciano MD Social History Tobacco Use Types Packs/Day Years Used Date Smoking Tobacco: Never Assessed Comments Unknown Sex and Gender Information Value Date Recorded Sex Assigned at Not on file Legal Sex Female 6:01 PM CDT Gender Identity Not on file Sexual Orientation Not on file documented as of this encounter Miscellaneous Notes * Cerner Conversion Note - [facility] Aiyana ProviderMD - 04/27/2019 6:51 AM EST Height and Weight, Routine Entered On: 04/27/2019 5:52 EST Performed On: 04/27/2019 5:51 EST by Prisca Stephenson Patient Coat Operator Height and Weight, Routine Routine Weight Source : Bed scale Routine Weight Entry Format : Metric Routine Weight, Kilograms : 86.5 kg(Converted to: 190 lb 11 oz) Routine Weight Calculation : 86.5 kg Height Source : Measured Height Entry Format : [place] Height, Feet : 5 ft Height, Inches : 2 Inch Clinical Height : 157.48 cm Body Surface Area (BSA), Routine : 1.87 m2 Body Mass Index (BMI), Routine : 34.88 kg/m2 Prisca Stephenson Patient Coat Operator - 04/27/2019 5:51 EST documented in this encounter Plan of Treatment Not on file documented as of this encounter Visit Diagnoses Not on filedocumented in this encounter
--- OUTSIDE RECORDS SUMMARY | 2025-03-30 09:19 | XMS_ITS | Referral Summary ---
Author Organization [employer] [facility] ([place], [place], [place], [place], [place]) Address [address] [place] [address] Care Team Providers Care Automation Controls Specialist Name Role Phone Unavailable Primary Care [...]
--- OUTSIDE RECORDS SUMMARY | 2025-03-30 09:19 | XMS_ITS | Encounter Summary ---
Author Organization [employer] ([place], [place], [place], [place], [place]) Address [address] [place] [address] Care Team Providers Care Ice Skater Name Role Phone Unavailable Primary Care Provider Unavailabl e Encounter Details Date Type Department Care Team (Late st Contact Info) Description 04/27/2019 Transcribed Document [facility] Radiology 1 [place] [address] ProviderLuciano MD Social History Tobacco [...] [facility] Aiyana ProviderMD - 04/27/2019 3:00 AM EST Oil Mixer Details Entered On: 04/27/2019 0:30 EST Performed [...]
--- OUTSIDE RECORDS SUMMARY | 2025-03-30 09:19 | XMS_ITS | Encounter Summary ---
Author Organization [employer] ([place], [place], [place], [place], [place]) Address [address] [place] [address] Care Team Providers Care Wastewater Treatment Supervisor Name Role Phone Unavailable Primary Care Provider Unavailabl e Encounter Details Date Type Department Care Team (Late st Contact Info) Description 05/01/2019 Transcribed Document [facility] Neurology - [address] [place] [address] Lane Ortiz Jr., MD [address] [place] [address] [address] [place] [address] Social History Tobacco Use Types Packs/Day Years [...] 100 mg= 2 Cap, Oral, TID Metamucil [place] Smooth Texture Sugar Free, 1 Packet, Oral, [...] Lymph # 1.90 x10(3)/uL 05/01/2019 03:10 EST [place] % 7.5 % 05/01/2019 03:10 EST [place] # 0.62 K/uL 05/01/2019 03:10 EST Eos [...]
--- OUTSIDE RECORDS SUMMARY | 2025-03-30 09:20 | XMS_ITS | Encounter Summary ---
Author Organization [employer] ([place], [place], [place], [place], [place]) Address [address] [place] [address] Care Team Providers Care Remote Sensing Technologist Name Role Phone Unavailable Primary Care Provider Unavailabl e Encounter Details Date Type Department Care Team (Late st Contact Info) Description 04/26/2019 Transcribed Document [facility] Radiology [address] [place] [address] ProviderLuciano MD Social History Tobacco Use Types Packs/Day Years Used Date Smoking Tobacco: Never Assessed Comments Unknown Sex and Gender Information Value Date Recorded Sex Assigned at Not on file Legal Sex Female 6:01 PM CDT Gender Identity Not on file Sexual Orientation Not on file documented as of this encounter Miscellaneous Notes * Cerner Conversion Note - [facility] Aiyana ProviderMD - 04/26/2019 3:00 AM EST Hardboard Coating Machine Operator Details Entered On: 04/26/2019 0:18 EST Performed [...]
--- OUTSIDE RECORDS SUMMARY | 2025-03-30 09:20 | XMS_ITS | Encounter Summary ---
Author Organization [employer] ([place], [place], [place], [place], [place]) Address [address] [place] [address] Care Team Providers Care Lean Specialist Name Role Phone Unavailable Primary Care Provider Unavailabl e Encounter Details Date Type Department Care Team (Late st Contact Info) Description 04/26/2019 Transcribed Document [facility] [address] [place] [address] Provider, Luciano Bronson MD Social [...] [facility] Aiyana ProviderMD - 04/26/2019 2:11 PM EST UM Authorization Entered On: 04/26/2019 13:11 EST Performed On: 04/26/2019 13:11 EST by BULMARO DUONG RN-Utilization Review Primary Insurance Authorization Authorization and Policy Numbers : Insurance 1 Health Plan: AETNA MEDICARE REPL Policy Number: [id number] Authorization Number: [id number] Insurance Primary Name : [facility] [id number] Authorization Status-Primary : Awaiting callback Authorization Number-Primary : [id number] Authorized Service Begin Date-Primary : 04/25/2019 EST Authorization Comments-Primary : clinicals faxed via [employer] for cont stay (only 1 day approved) Historical Authorization Comments-Primary : Comment 1: per STAR inpt approved 1 day auth# [id number] (FRANCY MILIAN, Release And Technical Records Clerk 04/24/2019 13:26) BULMARO DUONG, RN-Utilization Review - 04/26/2019 13:11 EST Electronically signed by [facility], [facility] Conversion Foot Caster Cerner at 08/23/2022 11:19 AM CDT documented in this encounter Plan of Treatment Not on file documented as of this encounter Visit Diagnoses Not on filedocumented in this encounter
--- OUTSIDE RECORDS SUMMARY | 2025-03-30 09:20 | XMS_ITS | Encounter Summary ---
Author Organization [employer] ([place], [place], [place], [place], [place]) Address [address] [place] [address] Care Team Providers Care Dye Boarding Machine Operator Name Role Phone Unavailable Primary Care Provider Unavailabl e Encounter Details Date Type Department Care Team (Late st Contact Info) Description 04/28/2019 Transcribed Document [facility] Radiology [address] [place] [address] Provider, Luciano Bronson MD Social [...] [facility] Aiyana ProviderMD - 04/28/2019 6:13 PM EST Initial Discharge Planning Entered On: 04/28/2019 17:18 EST Performed On: 04/28/2019 17:13 EST by ROMELIA MCADAMS RN-Access Clinician Initial Assessment I Previously Documented Living Environment : No qualifying data available. Living Situation : Home Patient Lives With : Spouse Is the Patient a Caregiver at Home? : No Emergency Contact #1 : Michelle Gonzalez Emergency Contact #1 cell Emergency Contact #1 Relationship : Emergency Contact #2 : Kandidenisa Burt Emergency Contact #2 cell Emergency Contact #2 Relationship : daughter ROMELIA MCADAMS RN-Access Clinician - 04/28/2019 17:13 EST Initial Assessment II Sensory and Motor Deficits : None ROMELIA MCADAMS RN-Access Clinician - 04/28/2019 17:13 EST Discharge Needs I Anticipated Discharge Date : 04/30/2019 EST Anticipated Discharge To, CM : correction facility Current Home Treatment/Equipment : Current Home Treatment/Equipment No qualifying data available. Documentation Status Complete : Yes ROMELIA MCADAMS RN-Access Clinician - 04/28/2019 17:13 EST Discharge Needs II Professional Skilled Services : Professional Skilled Services No qualifying data available. Needs Assistance with Transportation : Maybe Discharge Options Discussed with Patient : Short term rehabilitation ROMELIA MCADAMS RN-Access Clinician - 04/28/2019 17:13 EST Narrative Note Narrative Note : 63yo female pt s/p L3-5 lami with resection of cauda equina tumor. CBR except when working with PT/OT. Met with pt, spouse, and daughter at bedside during rounds to discuss DCP. They request rehab at [facility] as pt's sister works there. CM also gave list of SNF in [facility] and [facility] with quality and resource information in case no bed or not in contract/network with pt's payor source. Referral sent to [facility] via [facility] and left message with liaison . NSY states pt will not be ready for dc for a couple more days. CM will follow. RMOELIA MCADAMS RN-Access Clinician - 04/28/2019 17:13 EST documented in this encounter Plan of Treatment Not on file documented as of this encounter Visit Diagnoses Not on filedocumented in this encounter
--- OUTSIDE RECORDS SUMMARY | 2025-03-30 09:20 | XMS_ITS | Encounter Summary ---
Author Organization [employer] ([place], [place], [place], [place], [place]) Address [address] [place] [address] Care Team Providers Care Service Desk Specialist Name Role Phone Unavailable Primary Care Provider Unavailabl e Encounter Details Date Type Department Care Team (Late st Contact Info) Description 04/28/2019 Transcribed Document [facility] Radiology [address] [place] [address] Provider, Luciano Bronson MD Social History Tobacco Use Types Packs/Day Years Used Date Smoking Tobacco: Never Assessed Comments Unknown Sex and Gender Information Value Date Recorded Sex Assigned at Not on file Legal Sex Female 6:01 PM CDT Gender Identity Not on file Sexual Orientation Not on file documented as of this encounter Miscellaneous Notes * Cerner Conversion Note - [facility] Aiyana ProviderMD - 04/28/2019 2:49 PM EST UM Authorization Entered On: 04/28/2019 13:49 EST Performed On: 04/28/2019 13:49 EST by Gali Newman Rn-Utilization Review Primary Insurance Authorization Authorization and Policy Numbers : Insurance 1 Health Plan: AETNA MEDICARE REPL Policy Number: [id number] Authorization Number: [id number] Insurance Primary Name [facility] [id number] Authorization Status-Primary : Awaiting callback Authorization Number-Primary : [id number] Authorized Service Begin Date-Primary : 04/25/2019 EST Historical Authorization Comments-Primary : Comment 1: clinicals faxed via [employer] for cont stay (only 1 day approved) (BULMARO DUONG, RN-Utilization Review 04/26/2019 13:11) Comment 2: per [facility] inpt approved 1 day auth# [id number] (FRANCY MILIAN, Senior Cyber Security Analyst 04/24/2019 13:26) Gali Newman Rn-Utilization Review - 04/28/2019 13:49 EST Electronically signed by Carito, [facility] Conversion Sales Technician Cerner at 08/23/2022 11:19 AM CDT documented in this encounter Plan of Treatment Not on file documented as of this encounter Visit Diagnoses Not on filedocumented in this encounter
--- OUTSIDE RECORDS SUMMARY | 2025-03-30 09:20 | XMS_ITS | Encounter Summary ---
Author Organization [employer] ([place], [place], [place], [place], [place]) Address [address] [place] [address] Care Team Providers Care Boat Carpenter Name Role Phone Unavailable Primary Care Provider Unavailabl e Encounter Details Date Type Department Care Team (Late st Contact Info) Description 04/28/2019 Transcribed Document [facility] Radiology 1 [place] [address] Provider, Luciano Bronson MD [...] - [facility] Aiyana ProviderMD - 04/28/2019 2:51 PM EST UM Authorization Entered On: 04/28/2019 13:51 EST Performed On: 04/28/2019 13:51 EST by Glai Newman Rn-Utilization Review Primary Insurance Authorization Authorization and Policy Numbers : Insurance 1 Health Plan: [employer] MEDICARE REPL Policy Number: [id number] Authorization Number: [id number] Insurance Primary Name : Mariela [id number] Authorization Status-Primary : Awaiting callback Authorization Number-Primary : [id number] Authorized Service Begin Date-Primary : 04/25/2019 EST Authorization Comments-Primary : lvm with brigette lui with [facility] for c/s . acb Historical Authorization Comments-Primary : Comment 1: clinicals faxed via [employer] for cont stay (only 1 day approved) (BULMARO DUONG RN-Utilization Review 04/26/2019 13:11) Comment 2: per STAR inpt approved 1 day auth# [id number] (FRANCY MILIAN, Mortgage Specialist 04/24/2019 13:26) Gali Newman Rn-Utilization Review - 04/28/2019 13:51 EST Electronically signed by Carito [facility] Conversion Slabbing Machine Operator Cerner at 08/23/2022 11:19 AM CDT documented in this encounter Plan of Treatment Not on file documented as of this encounter Visit Diagnoses Not on filedocumented in this encounter
--- OUTSIDE RECORDS SUMMARY | 2025-03-30 09:20 | XMS_ITS | Encounter Summary ---
Author Organization [employer] ([place], [place], [place], [place], [place]) Address [address] [place] [address] Care Team Providers Care Signwriter Name Role Phone Unavailable Primary Care Provider Unavailabl e Encounter Details Date Type Department Care Team (Late st Contact Info) Description 04/29/2019 Transcribed Document [facility] 1 [place] [address] Provider, Luciano Bronson MD Social [...] [facility] Aiyana ProviderMD - 04/29/2019 4:24 PM EST On Going Discharge Planning Entered On: 04/29/2019 15:26 EST Performed On: 04/29/2019 15:24 EST by ROMELIA MCADAMS RN-PreparatorTechnology Education Instructor Progress Note Discharge Arrangements : Patient Post-Acute [...] Meeting Medical Necessity : Yes ROMELIA MCADAMS RN-Preparator - 04/29/2019 15:24 EST Narrative Progress Note Narrative Progress Note : Urology consulted for neurogenic bladder. Pt's choices of [facility] are not in network with pt's payor source. D/W pt at bedside. She has chose [facility] now. Referral sent via Tc and informed Colleene. Precert intitated for acute. CM will continue to follow. ROMELIA MCADAMS RN-Preparator - 04/29/2019 15:24 EST Electronically signed by Carito [facility] Conversion Wad Impregnator Cerner at 08/23/2022 11:18 AM CDT documented in this encounter Plan of Treatment Not on file documented as of this encounter Visit Diagnoses Not on filedocumented in this encounter
--- OUTSIDE RECORDS SUMMARY | 2025-03-30 09:20 | XMS_ITS | Encounter Summary ---
Author Organization [employer] ([place], [place], [place], [place], [place]) Address [address] [place] [address] Care Team Providers Care Sales Commissions Analyst Name Role Phone Unavailable Primary Care Provider Unavailabl e Encounter Details Date Type Department Care Team (Late st Contact Info) Description 04/28/2019 Transcribed Document [facility] Radiology [address] [place] [address] Provider, Luciano Bronson MD [...] Notes * Cerner Conversion Note - [facility] Aiyana ProviderMD - 04/28/2019 4:19 PM EST UM Authorization Entered On: 04/28/2019 15:20 EST Performed On: 04/28/2019 15:19 EST by Gali eNwman Rn-Utilization Review Primary Insurance Authorization Authorization and Policy Numbers : Insurance 1 Health Plan: [employer] MEDICARE REPL Policy Number: [id number] Authorization Number: [id number] Insurance Primary Name : Mariela [id number] Authorization Status-Primary : Awaiting callback Authorization Number-Primary : [id number] Authorized Service Begin Date-Primary : 04/25/2019 EST Authorization Comments-Primary : clinical faxed per faith for 04/27 and 04/28 Historical Authorization Comments-Primary : Comment 1: call back from ten lui with [facility] requesting clinical be faxed to [phone]. clinical faxed per faith (Trent, Gali L, Rn-Utilization Review 04/28/2019 15:17) Comment 2: lvm with brigette rn with [employer] for c/s . acb (Gali Newman, Rn-Utilization Review 04/28/2019 13:51) Comment 3: [facility]only 1 day approved) (BULMARO DUONG, RN-Utilization Review 04/26/2019 13:11) Comment 4: per ST[facility] inpt approved 1 day auth# [id number] (FRANCY MILIAN, Legal Recruiter 04/24/2019 13:26) Gali Newman Rn-Utilization Review - 04/28/2019 15:19 EST documented in this encounter Plan of Treatment Not on file documented as of this encounter Visit Diagnoses Not on filedocumented in this encounter
--- OUTSIDE RECORDS SUMMARY | 2025-03-30 09:20 | XMS_ITS | Encounter Summary ---
Author Organization [employer] ([place], [place], [place], [place], [place]) Address [address] [place] [address] Care Team Providers Care Public Health Professor Name Role Phone Unavailable Primary Care Provider Unavailabl e Encounter Details Date Type Department Care Team (Late st Contact Info) Description 04/28/2019 Transcribed Document [facility] Radiology 1 [place] [address] Provider, Luciano Bronson MD Social [...] [facility] Aiyana ProviderMD - 04/28/2019 10:32 AM EST UM Authorization Entered On: 04/28/2019 9:32 EST Performed On: 04/28/2019 9:32 EST by Gali Newman Rn-Utilization Review Primary Insurance Authorization Authorization and Policy Numbers : Insurance 1 Health Plan: [employer] MEDICARE REPL Policy Number: [id number] Authorization Number: [id number] Insurance Primary Name : Dongsandi [id number] Authorization Status-Primary : Awaiting callback Authorization Number-Primary : [id number] Authorized Service Begin Date-Primary : 04/25/2019 EST Historical Authorization Comments-Primary : Comment 1: clinicals faxed via [employer] for cont stay (only 1 day approved) (BULMARO DUONG, RN-Utilization Review 04/26/2019 13:11) Comment 2: per [facility] inpt approved 1 day auth# [id number] (FRANCY MILIAN, Cottage Supervisor 04/24/2019 13:26) Gali Newman Rn-Utilization Review - 04/28/2019 9:32 EST Electronically signed by Carito, [facility] Conversion Chemical Processing Supervisor Cerner at 08/23/2022 11:19 AM CDT documented in this encounter Plan of Treatment Not on file documented as of this encounter Visit Diagnoses Not on filedocumented in this encounter
--- OUTSIDE RECORDS SUMMARY | 2025-03-30 09:20 | XMS_ITS | Encounter Summary ---
Author Organization [employer] ([place], [place], [place], [place], [place]) Address [address] [place] [address] Care Team Providers Care Cooker Chip Name Role Phone Unavailable Primary Care Provider Unavailabl e Encounter Details Date Type Department Care Team (Late st Contact Info) Description 05/02/2019 Transcribed Document [facility] 1 [place] [address] Provider, Luciano Bronson MD Social History Tobacco Use Types Packs/Day Years Used Date Smoking Tobacco: Never Assessed Comments Unknown Sex and Gender Information Value Date Recorded Sex Assigned at Not on file Legal Sex Female 6:01 PM CDT Gender Identity Not on file Sexual Orientation Not on file documented as of this encounter Miscellaneous Notes * Cerner Conversion Note - [facility] Aiyana ProviderMD - 05/02/2019 9:47 AM EST UM Authorization Entered On: 05/02/2019 8:49 EST Performed On: 05/02/2019 8:47 EST by Gali Newman Rn-Utilization Review Primary Insurance Authorization Authorization and Policy Numbers : Insurance 1 Health Plan: [employer] MEDICARE REPL Policy Number: [id number] Authorization Number: [id number] Insurance Primary Name : Dongsandi [id number] Authorization Status-Primary : Admit approved Authorization Number-Primary : [id number] Number of Days Authorized-Primary : 8 Day(s) Authorized Service Begin Date-Primary : 04/25/2019 EST Authorized Service End Date-Primary : 05/03/2019 EST Authorization Comments-Primary : c/s auth approved per brigette for 05/01 to 05/02. minh 05/03 Historical Authorization Comments-Primary : Comment 1: Authorized per fax 04/29/2019 @ 1530. Approved x5 days (6 total: 04/25-04/30). Next review due on 05/01/2019. Tameka Davidson, RN. (Dayna Rios, Sheriff'S Detective 04/30/2019 07:06) Comment 2: clinical faxed per cerner for 04/27 and 04/28 (Gali Newman, Rn-Utilization Review 04/28/2019 15:19) Comment 3: call back from tameka lui with [employer] requesting clinical be faxed to [phone]. clinical faxed per cerner (Gali Newman, Rn-Utilization Review 04/28/2019 15:17) Comment 4: lvm with brigette lui with tanya for c/s . acb (Gali Newman, Rn-Utilization Review 04/28/2019 13:51) Comment 5: clinicals faxed via [employer]ner for cont stay (only 1 day approved) (BULMARO DUONG, RN-Utilization Review 04/26/2019 13:11) Comment 6: per [facility] inpt approved 1 day auth# [id number] (FRANCY MILIAN, Postdoctoral Research Associate 04/24/2019 13:26) Gali Newman, Deya-Utilization Review - 05/02/2019 8:47 EST Electronically signed by Luciano [employer] Conversion Other Wood Processing Machine Operator Cerner at 08/23/2022 11:19 AM CDT documented in this encounter Plan of Treatment Not on file documented as of this encounter Visit Diagnoses Not on filedocumented in this encounter
--- OUTSIDE RECORDS SUMMARY | 2025-03-30 09:20 | XMS_ITS | Encounter Summary ---
Author Organization [employer] ([place], [place], [place], [place], [place]) Address [address] [place] [address] Care Team Providers Care Digester Cook Name Role Phone Unavailable Primary Care Provider Unavailabl e Encounter Details Date Type Department Care Team (Late st Contact Info) Description 04/27/2019 Transcribed Document [facility] Radiology 1 [place] [address] ProviderLuciano MD Social History [...] - [facility] Aiyana ProviderMD - 04/27/2019 6:00 AM [...]
--- OUTSIDE RECORDS SUMMARY | 2025-03-30 09:20 | XMS_ITS | Encounter Summary ---
Author Organization [employer] ([place], [place], [place], [place], [place]) Address [address] [place] [address] Care Team Providers Care Do All Operator Name Role Phone Unavailable Primary Care Provider Unavailabl e Encounter Details Date Type Department Care Team (Late st Contact Info) Description 04/28/2019 Transcribed Document [facility] [address] [facility] [address] [place] [address] Meliza Downs Jr., MD [address] [place] [address] [address] [place] [address] Social History Tobacco Use Types Packs/Day Years [...] for a while. family [place]hab [place]. i dw case managemenrt. documented in this encounter Plan of Treatment Not on file documented as of this encounter Visit Diagnoses Not on filedocumented in this encounter
--- OUTSIDE RECORDS SUMMARY | 2025-03-30 09:20 | XMS_ITS | Encounter Summary ---
Author Organization [employer] ([place], [place], [place], [place], [place]) Address [address] [place] [address] Care Team Providers Care Medical Staff Physician Name Role Phone Unavailable Primary Care Provider Unavailabl e Encounter Details Date Type Department Care Team (Late st Contact Info) Description 04/28/2019 Transcribed Document [facility] Radiology 1 [place] [address] Provider, Luciano Bronson MD Social [...] [facility] Aiyana ProviderMD - 04/28/2019 4:17 PM EST UM Authorization Entered On: 04/28/2019 15:19 EST Performed On: 04/28/2019 15:17 EST by Gali Newman Rn-Utilization Review Primary Insurance Authorization Authorization and Policy Numbers : Insurance 1 Health Plan: [employer] MEDICARE REPL Policy Number: [id number] Authorization Number: [id number] Insurance Primary Name : Tanya [id number] Authorization Status-Primary : Awaiting callback Authorization Number-Primary : [id number] Authorized Service Begin Date-Primary : 04/25/2019 EST Authorization Comments-Primary : call back from ten lui with tanya requesting clinical be faxed to [phone]. clinical faxed per [facility] Bronson Authorization Comments-Primary : Comment 1: lvm with brigette lui with tanya for c/s . acb (Trent, Gali L, Rn-Utilization Review 04/28/2019 13:51) Comment 2: clinicals faxed via [employer] for cont stay (only 1 day approved) (BULMARO DUONG, RN-Utilization Review 04/26/2019 13:11) Comment 3: per [facility] inpt approved 1 day auth# [id number] (FRANCY MILIAN, Visual Associate 04/24/2019 13:26) Gali Newman Rn-Utilization Review - 04/28/2019 15:17 EST documented in this encounter Plan of Treatment Not on file documented as of this encounter Visit Diagnoses Not on filedocumented in this encounter
--- OUTSIDE RECORDS SUMMARY | 2025-03-30 09:20 | XMS_ITS | Clinical Summary ---
Author Organization Immediately [facility] ([place], [place], [place], [place], [place]) Address [address] [place] [address] Care Team Providers Care Carding Utility Tender Name Role Phone Unavailable Primary Care [...]
--- OUTSIDE RECORDS SUMMARY | 2025-03-30 09:20 | XMS_ITS | Encounter Summary ---
Author Organization [employer] ([place], [place], [place], [place], [place]) Address [address] [place] [address] Care Team Providers Care Marketing Regional Consultant Name Role Phone Unavailable Primary Care Provider Unavailabl e Encounter Details Date Type Department Care Team (Late st Contact Info) Description 04/29/2019 Transcribed Document [facility] Neurology - [address] [place] [address] Meliza Downs Jr., MD [address] [place] [address] [address] [place] [address] Social History Tobacco Use Types Packs/Day Years [...] for leak. Continue PT. Will need rehab. [place] goodman. Urology to see today. VTE Prophylaxis - Medical Heparin 5,000 Units, SubCutaneous, Inj, Q8H, Routine, Start 04/27/19 11:40:00 EST (MELIZA DOWNS) Sequential Compression Device Start: 04/25/19 17:44:00 EST, Bilateral, Continuous Order (MELIZA DOWNS) Sequential Compression Device Start: 04/25/19 8:22:00 EST, Bilateral, Continuous Order (MELIZA DOWSN) Medications alogliptin, 25 mg= 1 Tab, Oral, [...] 100 mg= 2 Cap, Oral, TID Metamucil [place] Smooth Texture Sugar Free, 1 Packet, Oral, [...]
--- OUTSIDE RECORDS SUMMARY | 2025-03-30 09:20 | XMS_ITS | Encounter Summary ---
Author Organization [employer] ([place], [place], [place], [place], [place]) Address [address] [place] [address] Care Team Providers Care Accountant Name Role Phone Unavailable Primary Care Provider Unavailabl e Encounter Details Date Type Department Care Team (Late st Contact Info) Description 04/27/2019 Transcribed Document [facility] Neurology - [facility] [address] [place] [address] [address] [place] [address] Meliza Downs Jr., MD [address] [place] [address] [address] [place] [address] Social History Tobacco Use Types Packs/Day Years [...]
--- OUTSIDE RECORDS SUMMARY | 2025-03-30 09:20 | XMS_ITS | Encounter Summary ---
Author Organization [employer] ([place], [place], [place], [place], [place]) Address [address] [place] [address] Care Team Providers Care Seafood Harvester Name Role Phone Unavailable Primary Care Provider Unavailabl e Encounter Details Date Type Department Care Team (Late st Contact Info) Description 04/28/2019 Transcribed Document [facility] Radiology 1 [place] [address] Provider, Luciano Bronson MD [...] Cerner Conversion Note - [facility] Aiyana ProviderMD - 04/28/2019 2:50 PM EST UM Authorization Entered On: 04/28/2019 13:50 EST Performed On: 04/28/2019 13:50 EST by Gali Newman Rn-Utilization Review Primary Insurance Authorization Authorization and Policy Numbers : Insurance 1 Health Plan: [employer] MEDICARE REPL Policy Number: [id number] Authorization Number: [id number] Insurance Primary Name : Dongsandi [id number] Authorization Status-Primary : Awaiting callback Authorization Number-Primary : [id number] Authorized Service Begin Date-Primary : 04/25/2019 EST Historical Authorization Comments-Primary : Comment 1: clinicals faxed via [employer] for cont stay (only 1 day approved) (BULMARO DUONG, RN-Utilization Review 04/26/2019 13:11) Comment 2: per STAR inpt approved 1 day auth# [id number] (FRANCY MILIAN, Mold Builder 04/24/2019 13:26) Gali Newman Rn-Utilization Review - 04/28/2019 13:50 EST Electronically signed by Carito, [facility] Conversion Placement Manager Cerner at 08/23/2022 11:19 AM CDT documented in this encounter Plan of Treatment Not on file documented as of this encounter Visit Diagnoses Not on filedocumented in this encounter
--- OUTSIDE RECORDS SUMMARY | 2025-03-30 09:20 | XMS_ITS | Encounter Summary ---
Author Organization [employer] ([place], [place], [place], [place], [place]) Address [address] [place] [address] Care Team Providers Care Fish And Wildlife Warden Name Role Phone Unavailable Primary Care Provider Unavailabl e Encounter Details Date Type Department Care Team (Late st Contact Info) Description 04/29/2019 Transcribed Document [facility] Radiology 1 [place] [address] Provider, Luciano Bronson MD Social [...] - [facility] Aiyana ProviderMD - 04/29/2019 10:39 AM [...] Physician - ALVERTO DIMAS MD-INT - medical product management intern Physician - MACK FAYE MD Referring Physician [...] 100 mg= 2 Cap, Oral, TID Metamucil Pearblossom Smooth Texture Sugar Free, 1 Packet, Oral, [...]
--- OUTSIDE RECORDS SUMMARY | 2025-03-30 09:20 | XMS_ITS | Encounter Summary ---
Author Organization [employer] ([place], [place], [place], [place], [place]) Address [address] [place] [address] Care Team Providers Care Senior Case Manager Name Role Phone Unavailable Primary Care Provider Unavailabl e Encounter Details Date Type Department Care Team (Late st Contact Info) Description 04/28/[address] [facility] Neurology - [address] [place] [address] Lane Ortiz Jr., MD [address] [place] [address] [address] [place] [address] Social History Tobacco Use Types Packs/Day Years [...] for leak. Continue PT. Will need rehab. [place] goodman. Medications alogliptin, 25 mg= 1 Tab, [...] 100 mg= 2 Cap, Oral, TID Metamucil Isabela Smooth Texture Sugar Free, 1 Packet, Oral, [...] Lymph # 1.24 x10(3)/uL 04/28/2019 03:07 EST [place] % 9.2 % (High) 04/28/2019 03:07 EST [place] # 0.90 K/uL 04/28/2019 03:07 EST Eos [...] Appearance CLEAR2 04/28/2019 08:57 EST Urine Specific Connell >1.030 (High) 04/28/2019 08:57 EST Urine pH [...]
--- OUTSIDE RECORDS SUMMARY | 2025-03-30 09:20 | XMS_ITS | Encounter Summary ---
Author Organization [employer] ([place], [place], [place], [place], [place]) Address [address] [place] [address] Care Team Providers Care Metal Molder Name Role Phone Unavailable Primary Care Provider Unavailabl e Encounter Details Date Type Department Care Team (Late st Contact Info) Description 04/28/2019 Transcribed Document [facility] Radiology 1 [place] [address] Provider, Luciano Bronson MD Social [...] - [facility] Aiyana ProviderMD - 04/28/2019 9:31 AM [...] with Hanna Murphy MD Electronically signed by [facility] Conversion Fruit Express Agent Cerner at 08/23/2022 11:19 AM CDT documented in this encounter Plan of Treatment Not on file documented as of this encounter Visit Diagnoses Not on filedocumented in this encounter
--- OUTSIDE RECORDS SUMMARY | 2025-03-30 09:20 | XMS_ITS | Encounter Summary ---
Author Organization [employer] ([place], [place], [place], [place], [place]) Address [address] [place] [address] Care Team Providers Care Regulatory Compliance Engineer Name Role Phone Unavailable Primary Care Provider Unavailabl e Encounter Details Date Type Department Care Team (Late st Contact Info) Description 05/05/2019 Transcribed Document [facility] Radiology 1 [place] [address] Provider, Luciano Bronson MD Social [...] Note - [facility] Aiyana ProviderMD - 05/05/2019 3:05 PM EST UM Authorization Entered On: 05/05/2019 14:05 EST Performed On: 05/05/2019 14:05 EST by Dayna Rios, Journeyman Wireman Primary Insurance Authorization Authorization and Policy Numbers : Insurance 1 Health Plan: [employer] MEDICARE REPL Policy Number: [id number] Authorization Number: [id number] Insurance Primary Name : Mariela [id number] Authorization Status-Primary : Admit approved Auth/Referral Contact Name-Primary : DC Authorization Number-Primary : [id number] Number of Days Authorized-Primary : 8 Day(s) [...] on 05/01/2019. Tameka Davidson RN. (Dayna Rios, Journeyman Wireman 04/30/2019 07:06) Comment 3: clinical faxed per cerner for 04/27 and 04/28 (Gali Newman, Rn-Utilization Review 04/28/2019 15:19) Comment 4: call back from taemka lui with [employer] requesting clinical be faxed to [phone]. clinical faxed per cerner (Gali Newman, Rn-Utilization Review 04/28/2019 15:17) Comment 5: lvm with brigette lui with [employer] for c/s . acb (Gali Newman, Rn-Utilization Review 04/28/2019 13:51) Comment 6: clinicals faxed via [employer]ner for cont stay (only 1 day approved) (BULMARO DUONG, RN-Utilization Review 04/26/2019 13:11) Comment 7: per STAR inpt approved 1 day auth# [id number] (FRANCY MILIAN, Sheet Rocker 04/24/2019 13:26) Dayna Rios, Journeyman Wireman - 05/05/2019 14:05 EST Electronically signed by Carito [facility] Conversion Dye Lab Technician Cerner at 08/23/2022 11:19 AM CDT documented in this encounter Plan of Treatment Not on file documented as of this encounter Visit Diagnoses Not on filedocumented in this encounter
--- OUTSIDE RECORDS SUMMARY | 2025-03-30 09:20 | XMS_ITS | Encounter Summary ---
Author Organization [employer] ([place], [place], [place], [place], [place]) Address [address] [place] [address] Care Team Providers Care Research Manufacturing Operator Name Role Phone Unavailable Primary Care Provider Unavailabl e Encounter Details Date Type Department Care Team (Late st Contact Info) Description 04/29/2019 Transcribed Document [facility] Radiology [address] [place] [id number] Karina Murphy MD [facility] [address] [address] Social History Tobacco Use Types [...] 1955 Associated Diagnoses: None Author: GERALDINE KESSLER, PLANNING ASSOCIATE-GUNNAR S: Patient found lying in bed. A/O. [...] Results (Current Encounter/Past 24 Hours) Bun/Creatinine 22.0 AK 04/29/2019 09:47 Creatinine Level 0.50 mg/dL LOW 04/29/2019 09:47 eGFR NonAfrican >60 mL/min/1.73m2 04/29/2019 09:47 eGFR >60 mL/min/1.73m2 04/29/2019 09:47 Sodium Level 138 mmol/L 04/29/2019 09:47 Potassium Level 3.3 mmol/L LOW 04/29/2019 09:47 Chloride Level 104 mmol/L 04/29/2019 09:47 Carbon Dioxide Level 31 mmol/L 04/29/2019 09:47 Anion Gap 6 LOW 04/29/2019 09:47 Blood Urea Nitrogen 11 mg/dL 04/29/2019 09:47 Glucose Level 131 mg/dL [place] 04/29/2019 09:47 Calcium Level 8.8 mg/dL 04/29/2019 09:47 Coagulation Results (Current Encounter/Past 24 Hours) No Coagulation Results Found (Past 24 Hours) Creatinine Clearance (Current Encounter/Past 24 Hours) Creatinine Level 0.50 mg/dL LOW 04/29/2019 09:47 Bun/Creatinine 22.0 AK 04/29/2019 09:47 Estimated Creatinine Clearance 92.27 mL/Min [...] per Dr. Ortiz; family requesting placement in [place] Urology consulted given neurogenic bladder and retention [...]
--- OUTSIDE RECORDS SUMMARY | 2025-03-30 09:20 | XMS_ITS | Encounter Summary ---
[facility] Address [address] [place] [address] Care Team Providers Care Mirror Fabrication Supervisor Name Role Phone Danelle Lennon APRN Primary Care Provider + [phone] Reason for Visit * Reason Comments Med Refill Encounter Details Date Type Department Care Team (Late st Contact Info) Description 02/17/2023 Refill [facility] [address] [place] [address] Alex Davis MD [address] [place] [address] Postlaminectomy syndrome of lumbar region; [...] myelopathy documented in this encounter Care Teams Mirror Fabrication Supervisor Relationship Specialty Start Date End Date Danelle Lennon APRN [address] [place] [address] A[place] STANTON [address] PCP - General Internal Medicine 06/18/24 documented as of this encounter
--- OUTSIDE RECORDS SUMMARY | 2025-03-30 09:20 | XMS_ITS | Encounter Summary ---
Author Organization [employer] ([place], [place], [place], [place], [place]) Address [address] [place] [address] Care Team Providers Care Budget And Policy Analyst Name Role Phone Unavailable Primary Care Provider Unavailabl e Encounter Details Date Type Department Care Team (Late st Contact Info) Description 05/02/2019 Transcribed Document [facility] Radiology [address] [place] [address] Provider, Luciano Bronson MD Social [...] [facility] Aiyana ProviderMD - 05/02/2019 1:41 PM EST Final Discharge Planning Entered On: 05/02/2019 12:43 EST Performed On: 05/02/2019 12:41 EST by ROMELIA MCADAMS RN-Investigative Research Specialist Final Discharge Planning Discharge Arrangements : Patient [...] Services (Related/SOC within 3 days)-06 ROMELIA MCADAMS, RN-Investigative Research Specialist - 05/02/2019 12:41 EST Final Narrative Note Final Narrative Note : Precrt denied for acute rehab at [facility]. PT dc'd pt yesterday stating she met all inpatient goals and ambulating 380ft. CM discussed with pt aND SPOUSE AT BEDSIDE.pT WILL LIKELY BE DENIED SUBACUTE WELL. tHEY AGREE TO GO HOME WITH hh FOR sn/pt/ot AND HAV NO PREFERENCE OF neuroscience specialist. Mattie WITH [facility] WAS ABLE TO PLACE PT WITH [facility]. FRW and BSC obtained from [facility] and have been delivered. No other CM need identified. ROMELIA MCADAMS RN-Investigative Research Specialist - 05/02/2019 12:41 EST documented in this encounter Plan of Treatment Not on file documented as of this encounter Visit Diagnoses Not on filedocumented in this encounter
--- OUTSIDE RECORDS SUMMARY | 2025-03-30 09:20 | XMS_ITS | Encounter Summary ---
Author Organization [employer] ([place], [place], [place], [place], [place]) Address [address] [place] [address] Care Team Providers Care Charter Bus Driver Name Role Phone Unavailable Primary Care Provider Unavailabl e Encounter Details Date Type Department Care Team (Late st Contact Info) Description 05/02/2019 Transcribed Document [facility] [address] [place] [address] ProviderLuciano MD Social History Tobacco [...] [facility] Aiyana ProviderMD - 05/02/2019 1:41 [...]
--- OUTSIDE RECORDS SUMMARY | 2025-03-30 09:20 | XMS_ITS | Encounter Summary ---
Author Organization [employer] ([place], [place], [place], [place]) Address [address] [place] [address] Care Team Providers Care Mosaicist Name Role Phone Unavailable Primary Care Provider Unavailabl e Encounter Details Date Type Department Care Team (Late st Contact Info) Description 05/02/2019 Transcribed Document [facility] Radiology [address] [place] [address] ProviderLuciano MD Social History Tobacco Use Types Packs/Day Years Used Date Smoking Tobacco: Never Assessed Comments Unknown Sex and Gender Information Value Date Recorded Sex Assigned at Not on file Legal Sex Female 6:01 PM CDT Gender Identity Not on file Sexual Orientation Not on file documented as of this encounter Miscellaneous Notes * Cerner Conversion Note - [facility] Aiyana ProviderMD - 05/02/2019 8:10 PM EST [...]
--- OUTSIDE RECORDS SUMMARY | 2025-03-30 09:20 | XMS_ITS | Encounter Summary ---
Author Organization [employer] ([place], [place], [place], [place], [place]) Address [address] [place] [address] Care Team Providers Care Public Administration Teacher Name Role Phone Unavailable Primary Care Provider Unavailabl e Encounter Details Date Type Department Care Team (Late st Contact Info) Description 04/28/2019 Transcribed Document [facility] [address] [place] [address] Provider, Luciano Bronson MD Social [...] [facility] Aiyana ProviderMD - 04/28/2019 5:40 PM EST Consult Phone Call Documentation Entered On: 04/29/2019 8:03 EST Performed On: 04/28/2019 16:40 EST by [facility] Phone Call for Consults Consult [...]
--- OUTSIDE RECORDS SUMMARY | 2025-03-30 09:20 | XMS_ITS | Encounter Summary ---
Author Organization [email or web address] ([place], [place], [place], [place]) Address [address] [place] [address] Care Team Providers Care Car Supplier Name Role Phone Unavailable Primary Care Provider Unavailabl e Encounter Details Date Type Department Care Team (Late st Contact Info) Description 05/02/2019 Transcribed Document [facility] Radiology [address] [place] [address] Provider, [facility] MD Aiyana Social History Tobacco [facility] ProviderMD - 05/02/2019 4:44 PM EST [facility] [address] [place] [id number] GERTRUDIS DALY :1955 Visit Time:04/25/2019 Your Visit [...] Services: [facility]-- Medical Equipment for Home Use: [facility]--[phone] Diet after Discharge: Resume usual diet as [...] EST Where: [facility] [address] [place] [address]- Follow Up with MELIZA DOWNS When 05/22/2019 11:00 AM EST Comments See appointment card Where: [address] (SUNDAY ONLY) [place] [address]- Business (1) Follow Up with MELIZA DOWNS When 05/08/2019 01:00 PM EST Comments See appointment card Where: [address] (SUNDAY ONLY) [place] [address]- Business (1) Follow Up with [...] at home: Medicines ??? Take or apply acpt-qem-bmjacjp and prescription medicines only as told by [...] cannot use soap and water, use hand government professor. ? Change your bandage as told by [...] 12/26/2008 Document Revised: 08/24/2016 Document Reviewed: 09/06/2015 [employer] Patient Education ?? 2019 [employer] Laminectomy, Care After This sheet gives [...] and water are not available, use hand government professor. ? Change your dressing as told by [...] or a bad smell. Medicines ??? Take rped-kkg-mgeprdn and prescription medicines only as told by [...] urine clear or pale yellow. ? Take xxnz-nlg-luuyckt or prescription medicines. ? Eat foods that [...] 10/06/2005 Document Revised: 11/02/2016 Document Reviewed: 09/03/2016 [employer] Patient Education ?? 2019 [employer]. cyclobenzaprine (demetria young) Amrix, Comfort Pac with [...] may report side effects to FDA at 7-229-BZT-9275. What other drugs will affect cyclobenzaprine? Using [...] drugs may affect cyclobenzaprine, including prescription and hgis-hsv-npudzfz medicines, vitamins, and herbal products. Not all [...] to ensure that the information provided by [employer]. ('[employer]') is accurate, up-to-date, and complete, but no guarantee is made to that effect. Drug information contained herein may be time sensitive. [employer] information has been compiled for use by healthcare practitioners and consumers in the [place] and therefore [employer] does not warrant that uses outside of the [place] are appropriate, unless specifically indicated otherwise. [employer] drug information does not endorse drugs, diagnose patients or recommend therapy. [employer] drug information is an informational resource designed [...] effective or appropriate for any given patient. [employer] does not assume any responsibility for any aspect of healthcare administered with the aid of information [employer] provides. The information contained herein is not intended to cover all possible uses, directions, precautions, warnings, drug interactions, allergic reactions, or adverse effects. If you have questions about the drugs you are taking, check with your doctor, nurse or pharmacist. Copyright 8536-1144 [employer]. Version: 5.01. Revision Date: 12/26/2017. pregabalin (pre [...] may report side effects to FDA at 3-880-YID-0780. What other drugs will affect pregabalin? Using [...] drugs may affect pregabalin, including prescription and rlto-frf-wbeszok medicines, vitamins, and herbal products. Not all [...] to ensure that the information provided by [employer]. [employer]') is accurate, up-to-date, and complete, but no guarantee is made to that effect. Drug information contained herein may be time sensitive. [employer] information has been compiled for use by healthcare practitioners and consumers in the [place] and therefore [employer] does not warrant that uses outside of the [place] are appropriate, unless specifically indicated otherwise. [employer] drug information does not endorse drugs, diagnose patients or recommend therapy. [employer] drug information is an informational resource designed [...] effective or appropriate for any given patient. [employer] does not assume any responsibility for any aspect of healthcare administered with the aid of information [employer] provides. The information contained herein is not intended to cover all possible uses, directions, precautions, warnings, drug interactions, allergic reactions, or adverse effects. If you have questions about the drugs you are taking, check with your doctor, nurse or pharmacist. Copyright 8146-6383 [employer]. Version: 8.01. Revision Date: 09/11/2017. acetaminophen and [...] may report side effects to FDA at 5-766-ZJI-6039. What other drugs will affect acetaminophen and [...] affect acetaminophen and oxycodone, including prescription and vdug-ybr-hggeftv medicines, vitamins, and herbal products. Not all [...] to ensure that the information provided by [employer] ('[employer]') is accurate, up-to-date, and complete, but no guarantee is made to that effect. Drug information contained herein may be time sensitive. [employer] information has been compiled for use by healthcare practitioners and consumers in the [place] and therefore [employer] does not warrant that uses outside of the [place] are appropriate, unless specifically indicated otherwise. [employer]'s drug information does not endorse drugs, diagnose patients or recommend therapy. [employer] drug information is an informational resource designed [...] effective or appropriate for any given patient. [employer] does not assume any responsibility for any aspect of healthcare administered with the aid of information [employer] provides. The information contained herein is not intended to cover all possible uses, directions, precautions, warnings, drug interactions, allergic reactions, or adverse effects. If you have questions about the drugs you are taking, check with your doctor, nurse or pharmacist. Copyright 5294-4089 [employer]. Version: 18.02. Revision Date: 02/27/2018. Emergency Awareness [...] Assistance with quitting is available by contacting 8-451-AWUS-NOW. This is a free resource providing counseling, support, and referral. Or you may contact your personal physician. [employer] Suicide Prevention Lifeline: The National Suicide Prevention [...] range between ( 11.7 and 14.9 ) [place] Percent Man: 8 % -- Normal range [...] range between ( 0.0 and 7.0 ) [place] #: 0.62 K/uL -- Normal range between ( 0.16 and 1.00 ) Eos #: 0.28 x10(3)/uL -- Normal range between ( 0.00 and 0.80 ) [place] %: 7.5 % -- Normal range between [...] ) Urine Bilirubin Dipstick: Negative Urine Specific [place]: >1.030 -- Normal range between ( 1.005 and 1.030 ) Urine Type.: U Cath 04/15/2019 8:26 AM Urine Type: U [facility] 04/25/2019 8:37 AM ABO/Rh Repeat: [...] was given the opportunity to ask questions. Patient/Catalogue Librarian Name: Patient/Catalogue Librarian Signature: Relationship to Patient: Clinician/Hospital Catalogue Librarian Signature: Date: Electronically signed by Carito, [facility] Conversion Bag Sewer Cerner at 08/23/2022 11:19 AM CDT documented in this encounter Plan of Treatment Not on file documented as of this encounter Visit Diagnoses Not on filedocumented in this encounter
--- OUTSIDE RECORDS SUMMARY | 2025-03-30 09:21 | XMS_ITS | Patient Health Record ---
Author Organization [facility] Address [address] [address] Care Team Providers Care Area Operations Director Name Role Phone Paddy Ledesma DO Unavailable [phone] Allergies Allergen (clinical drug ingredient) Drug/Non Drug [...] specified complication (E11.69) Active confirmed Problem Gastroparesis (262589726) Gastroparesis (K31.84) Active confirmed I suspect that [...] records. Problem Long-term current use of insulin (712536114) intermediate manager (current) use of insulin (Z79.4) Active confirmed Problem Drug-induced constipation (27335057) Drug induced constipation (K59.03) Active confirmed Problem Incontinence of feces (11060238) Incontinence of feces, unspecified fecal incontinence type (R15.9) Active confirmed Problem Chronic constipation with overflow (97888649) Chronic constipation with overflow (K59.09) Active confirmed Plan Of Treatment No Information Insurance Providers Payer Name Payer Address Payer Phone Subscriber Number Group Number Insured Name Patient Relationship to Insured Coverage Start Date Coverage End Date [facility] [address] [address] [place], [place] [id number] FLORIAN GONZALEZ Self - patient is the insured Medical (General) History Medical History History ICD Code Diabetes mellitus, type II Hypertension Surgical History Surgery Date(Month/Year) spinal nerve sheath tumor Tubal Ligation
--- OUTSIDE RECORDS SUMMARY | 2025-03-30 09:21 | XMS_ITS | Encounter Summary ---
Author Organization [employer] ([place], [place], [place], [place], [place]) Address [address] [place] [address] Care Team Providers Care Head Porter Baggage Name Role Phone Unavailable Primary Care Provider Unavailabl e Encounter Details Date Type Department Care Team (Late st Contact Info) Description 04/25/2019 Transcribed Document [facility] Radiology 1 [place] [address] Provider, [facility] MD Aiyana Social History Tobacco Use Types [...] [facility] Aiyana ProviderMD - 04/25/2019 1:05 PM EST [facility] Main OR IntraOp Summary Primary Physician: MELIZA DOWNS MD-SNU Finalized Date/Time: 04/27/19 12:47:33 Pt. Name: KANG DALYGHANSHYAM Gilbert /Sex: 1955 Female Med Rec #: [id number] Physician: MELIZA DOWNS MD-NIYA Financial #: [id number] Pt. Type: I Room/Bed: [facility] Admit/Disch: 04/25/19 06:38:00 - Institution: [facility] IntraOp Case Attendance Entry 1 Entry 2 Entry 3 Case Attendee MELIZA DOWNS MD-SNU Burdine, Teresa A, RN BRADY, CHRISTINA M, RN Role Performed Surgeon/Proceduralist, Joint Creaser, First Joint Creaser, First First Time In 04/25/19 11:21:00 04/25/19 11:21:00 04/25/19 11:21:00 Time Out 04/25/19 17:43:00 04/25/19 17:43:00 04/25/19 12:15:00 Procedure Lumbar Laminectomy Lumbar Laminectomy Lumbar Laminectomy Other Attendee lunch relief Superficial Wound Closed By: Last Modified By: Lida Mitchell RN Burdine, Teresa A, Lida Ho, IAN 04/25/19 17:44:12 04/25/19 17:44:12 04/25/19 17:44:12 Entry 4 Entry 5 Entry 6 Case Attendee JACKSON PATTERSON, [facility] Oscar MONAHAN Mark, DAHLIA BURRIS-JEB Role Performed Scrub, First Physician blood bank assistant CHIEF NURSING EXECUTIVE/Nurse Hose Turner Time In 04/25/19 11:21:00 04/25/19 11:21:00 04/25/19 [...] TSAI MD-Courtney Arenas, OTHER, ATTENDEE #1 Diagnostic Dial Brusher Role Performed Anesthesiologist of Developer Advocate Other Record Time In 04/25/19 11:21:00 04/25/19 [...] WASSON, SANDRA D RN Technologist Role Performed Developer Advocate Scrub, Second Time In 04/25/19 13:10:00 04/25/19 13:00:00 Time Out 04/25/19 14:38:00 04/25/19 14:15:00 Procedure Lumbar Laminectomy Lumbar Laminectomy Other Attendee LUNCH RELIEF Superficial Wound Closed By: Last Modified By: Lida Mitchell, RN Lida Mitchell RN 04/25/19 17:44:12 04/25/19 17:44:12 [facility] IntraOp Case Attendance Audit 04/25/19 17:44:12 Medicine Man: [id number] Modifier: [id number] <+> Time Out 1 <*> Procedure [...] 11 <*> Procedure Lumbar Laminectomy 04/25/19 16:08:03 Medicine Man: [id number] Modifier: [id number] <+> Time Out 3 <*> Procedure Lumbar Laminectomy 04/25/19 14:51:38 Medicine Man: [id number] Modifier: [id number] <+> Time Out 10 <*> Procedure Lumbar Laminectomy 04/25/19 14:16:00 Medicine Man: [id number] Modifier: [id number] <+> Time Out 11 <*> Procedure Lumbar Laminectomy 04/25/19 13:35:44 Medicine Man: [id number] Modifier: [id number] <+> 10 Case Attendee <+> 10 Role Performed <+> 10 Time In <+> 10 Procedure <+> 10 Other Attendee <+> 11 Case Attendee <+> 11 Role Performed <+> 11 Time In <+> 11 Procedure 04/25/19 12:44:43 Medicine Man: [id number] Modifier: [id number] <+> 1 Procedure 2 <*> Procedure Lumbar Laminectomy 3 <*> Procedure Lumbar Laminectomy 4 <*> Procedure Lumbar Laminectomy 5 <*> Procedure Lumbar Laminectomy 6 <*> Procedure Lumbar Laminectomy 7 <*> Procedure Lumbar Laminectomy 8 <*> Procedure Lumbar Laminectomy 9 <*> Procedure Lumbar Laminectomy 04/25/19 12:43:20 Medicine Man: [id number] Modifier: [id number] <*> Procedure Lumbar Laminectomy 3 <*> Procedure Lumbar Laminectomy 4 <*> Procedure Lumbar Laminectomy 5 <*> Procedure Lumbar Laminectomy 6 <*> Procedure Lumbar Laminectomy 7 <*> Procedure Lumbar Laminectomy 8 <*> Procedure Lumbar Laminectomy 9 <+> Time In 9 <*> Procedure Lumbar Laminectomy 04/25/19 12:25:13 Medicine Man: [id number] Modifier: [id number] <*> Procedure Lumbar Laminectomy 3 <*> Procedure Lumbar Laminectomy 4 <*> Procedure Lumbar Laminectomy 5 <*> Procedure Lumbar Laminectomy 6 <*> Procedure Lumbar Laminectomy 7 <*> Procedure Lumbar Laminectomy 8 <+> Time In 8 <*> Procedure Lumbar Laminectomy <+> 9 Case Attendee <+> 9 Role Performed <+> 9 Procedure <+> 9 Other Attendee 04/25/19 12:23:07 Medicine Man: [id number] Modifier: [id number] <+> 1 Time In 2 <+> Time [...] <+> 8 Role Performed <+> 8 Procedure [facility] IntraOp Case Times Entry 1 Patient In Room Time 04/25/19 11:21:00 Out Room Time 04/25/19 17:43:00 Anesthesia Start Time 04/25/19 11:21:00 Stop Time 04/25/19 17:43:00 Surgery / Procedure Times Start Time 04/25/19 12:05:00 Stop Time 04/25/19 17:29:00 Last Modified By: Lida Mitchell RN 04/25/19 17:43:33 [facility] IntraOp Case Times Audit 04/25/19 17:43:33 Medicine Man: [id number] Modifier: [id number] <+> 1 Out Room Time <+> 1 Stop Time <+> 1 Stop Time [facility] IntraOp Cautery Entry 1 Entry 2 ESU Identification Cautery Type Monopolar ESU BiPolar ESU Cautery Type Comments ID Number [id number] ID Type Hospital Number Hospital Number Cautery [...] Teresa A, RN 04/25/19 12:24:11 04/25/19 12:25:58 [facility] IntraOp Cautery Audit 04/25/19 12:25:58 Medicine Man: [id number] Modifier: [id number] <+> 2 Cautery Type <+> 2 Coag Setting <+> 2 Cut Setting <+> 2 ID Number <+> 2 ID Type [facility] IntraOp Communication Entry 1 Entry 2 [...] Modified By: Lida Mitchell RN 04/25/19 16:58:34 [facility] IntraOp Communication Audit 04/25/19 16:58:34 Medicine Man: [id number] Modifier: [id number] 4 <*> Comment CLOSING 04/25/19 16:33:59 Medicine Man: [id number] Modifier: [id number] <+> 3 Communication By <+> 3 Date and Time <+> 3 Communication To <+> 3 Comment <+> 4 Communication By <+> 4 Date and Time <+> 4 Communication To <+> 4 Comment 04/25/19 13:43:33 Medicine Man: [id number] Modifier: [id number] <+> 2 Communication By <+> 2 Date and Time <+> 2 Communication To <+> 2 Comment [facility] IntraOp Counts Verification Entry 1 Procedure Lumbar Laminectomy Count Info Count Type Sponge, Sharps, Miscellaneous Counts Verification Baseline/pre-procedure Sequence Counts Performed By Count Performed By JACKSON PATTERSON ST (Scrub) Count Performed By Lida Mitchell RN (RN) Last Modified By: Lida Mitchell RN 04/25/19 12:07:52 [facility] IntraOp Counts Final Entry 1 Procedure Lumbar Laminectomy Final Count Info Count Type Sponge, Sharps, Miscellaneous Counts Verification Skin Closure/end of Sequence procedure Count Results Correct, surgeon notified Counts Performed By Count Performed By JACKSON PATTERSON ST (Scrub) Count Performed By Lida Mitchell RN (RN) Last Modified By: Lida Mitchell RN 04/25/19 17:43:58 [facility] IntraOp Counts Final Audit 04/25/19 17:43:58 Medicine Man: [id number] Modifier: [id number] Entry 1 was deleted. Higher numbered entries shifted one position to fill the gap. <-> 1 Procedure Lumbar Laminectomy <-> 1 Count Type Sponge, Sharps, Miscellaneous <-> 1 Count Results Correct, surgeon notified <-> 1 Count Performed By (Scrub) JACKSON PATTERSON ST <-> 1 Count Performed By (RN) Lida Mitchell RN <-> 1 Counts Verification Sequence 04/25/19 17:43:46 Medicine Man: [id number] Modifier: [id number] <+> 2 Procedure <+> 2 Count Type <+> 2 Count Results <+> 2 Count Performed By (Scrub) <+> 2 Count Performed By (RN) <+> 2 Counts Verification Sequence [facility] IntraOp Cultures and Spec Summary Entry 1 Cultrures and Specimens Specimen Ordered: Yes Test(s) Frozen Requested/Final Section(s)/Path-Lab Disposition Last Modified By: Lida Mitchell RN 04/25/19 17:43:50 General Comments: A. NEOPLASM OF SPINE B. SONAPET CONTENTS C. CAUDA EQUINA TUMOR [facility] IntraOp Cultures and Spec Summary Audit 04/25/19 17:43:50 Medicine Man: [id number] Modifier: [id number] <*> Specimen Ordered: [facility] IntraOp Departure from OR Entry 1 Integumentary Assessment Integumentary WDL Assessment WDL Transfer/Handoff Transfer to PACU Phase I Handoff Method Phone call Post-op Transport Stretcher/Gurney Via Patient Transport AISHA MONAHAN, Accompanied by ASHER JENKINS, Vu Moore, MARY Last Modified By: Lida Mitchell RN 04/25/19 12:26:34 [facility] IntraOp Dressing and Packing Entry 1 Type Dressing Location OPSITE Wound Dressing Item Occlusive dressing Applied By ALICE MAR PA-INT Last Modified By: Lida Mitchell RN 04/25/19 12:27:03 [facility] IntraOp Fire Risk Assessment Entry 1 [...] Modified By: Lida Mitchell RN 04/25/19 12:27:34 [facility] IntraOp General Case Metalsmith Helper 1 Case Information OR OR 09 [facility] Case Level 1 Room Verified Yes Wound Class I - Clean Specialty SN Neurosurgery ASA Class 3 Diagnosis 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 Postop Same As Preop No Postop Diagnosis SEE MD POST OP NOTE Last Modified By: Lida Mitchell RN 04/25/19 12:33:13 [facility] IntraOp Implant Log Entry 1 Type Implant (Synthetic) Implant Log Implant Type Mesh Implant GRAFT MATRIX DURA Identification [id number] Description Implant Quantity 1 Implant Site OPSITE Implant [id number] Identification Lot Number Implant Med[employer]onic Surgical Identification Navigation Steersman Name: Implant [id number] Identification Catalog Number Implant Has an Yes Expiration Date Implant Expiration 05/30/21 Date Tissue Implant Last Modified By: Lida Mitchell RN 04/25/19 16:47:01 [facility] IntraOp Intraoperative Assessment Entry 1 Handoff [...] Modified By: Lida Mitchell RN 04/25/19 12:34:19 [facility] IntraOp Intraoperative Assessment Audit 04/25/19 12:34:19 Medicine Man: [id number] Modifier: [id number] 1 <*> Present Upon Arrival to OR IVs [facility] IntraOp Intraoperative Equipment Entry 1 Type [...] Modified By: Lida Mitchell RN 04/25/19 12:39:08 [facility] IntraOp Medication Admin Entry 1 Entry 2 Entry 3 Medication/Irrigant neomycin/bacitracin/poly thrombin 5,000 unit pwd FLSEAL VHSD FULL mixin 15 gm oint STRLPREP [id number] --[id number] Combo Med List Time Administered Route of [...] Entry 5 Medication/Irrigant SEALANT DURASL SPINE FLSEAL [facility] FULL 5ML-[id number] STRLPREP 10ML-[id number] Combo Med List Time Administered Route of TOPICAL TOPICAL Administration Dose Dose 5 10 Unit of Measure ml ml Volume Administered By MELIZA DOWNS MD-MELIZA MAYFIELD MD-SNU Procedure Irrigation Irrigant Volume In Irrigant Volume Out Last Modified By: Lida Mitchell RN Burdine, Teresa A, RN 04/25/19 13:47:01 04/25/19 16:58:55 [facility] IntraOp Medication Admin Audit 04/25/19 16:58:55 Medicine Man: [id number] Modifier: [id number] <+> 5 Medication/Irrigant <+> 5 Route of Administration <+> 5 Administered By <+> 5 Dose <+> 5 Unit of Measure 04/25/19 13:47:01 Medicine Man: [id number] Modifier: [id number] <+> 4 Medication/Irrigant <+> 4 Route of Administration <+> 4 Administered By <+> 4 Dose <+> 4 Unit of Measure 04/25/19 13:01:17 Medicine Man: [id number] Modifier: [id number] <+> 3 Medication/Irrigant <+> 3 Route of Administration <+> 3 Administered By <+> 3 Dose <+> 3 Unit of Measure [facility] IntraOp Patient Positioning Entry 1 Procedure [...] Modified By: Lida Mitchell RN 04/25/19 12:43:00 [facility] IntraOp Sign In Entry 1 Patient, [...] Modified By: Lida Mitchell RN 04/25/19 12:43:17 [facility] IntraOp Sign Out Entry 1 RN [...] Modified By: Lida Mitchell RN 04/25/19 17:44:08 [facility] IntraOp Sign Out Audit 04/25/19 17:44:08 Medicine Man: [id number] Modifier: [id number] <+> 1 RN Sign Out Signature Date/Time [facility] IntraOp Skin Prep Entry 1 Procedure Lumbar Laminectomy Prescribed Yes Pre-Surgical Prep Completed Prep Area OPSITE Intraop Prep Integumentary WDL Assessment WDL Prep Agents Chloraprep Prep by Lida Mitchell RN Hair Removal Methods No hair removal performed Last Modified By: Lida Mitchell RN 04/25/19 12:44:40 [facility] IntraOp Surgical Procedures Entry 1 Procedure Lumbar Laminectomy Additional (LUMBAR LAMINECTOMY Procedure WITH RESECTION Description /DEBULKING OF INTRA DURAL CAUDE EQUINA TUMOR) Primary Procedure Yes Primary Surgeon MELIZA DOWNS MD-SNU Start 04/25/19 12:05:00 Stop 04/25/19 17:29:00 Anesthesia Type General Specialty SN Neurosurgery Wound Class I - Clean Last Modified By: Lida Mitchell RN 04/25/19 17:44:10 [facility] IntraOp Surgical Procedures Audit 04/25/19 17:44:10 Medicine Man: [id number] Modifier: [id number] <+> 1 Stop [facility] IntraOp Temp Regulation Devices Entry 1 Temp Regulation Temperature Forced Air Warming Regulation Device device, Warm blankets Temperature Upper body Regulation Site Temperature Device 43 Setting Temperature Oscar, Vu, CHIEF NURSING EXECUTIVE Regulation Device Applied by Temperature PATIENT'S TEMPERATURE Regulation Comment MONITORED BY ANESTHESIA Last Modified By: Lida Mitchell RN 04/25/19 12:45:34 [facility] IntraOP Time Out Entry 1 Procedure [...] Modified By: Lida Mitchell RN 04/25/19 12:05:42 [facility] IntraOp X-Ray and Images Entry 1 X-Ray/Imaging Type Fluoroscopy Fluoroscopy Type C-Arm Site OPSITE Optical Laboratory Technician Name Ev Toro RN-Educator I Protective Devices [...]
--- OUTSIDE RECORDS SUMMARY | 2025-03-30 09:21 | XMS_ITS | Encounter Summary ---
Author Organization [employer] ([place], [place], [place], [place], [place]) Address [address] [place] [address] Care Team Providers Care Electrician Outside Name Role Phone Unavailable Primary Care Provider Unavailabl e Encounter Details Date Type Department Care Team (Late st Contact Info) Description 04/25/2019 Transcribed Document [facility] [address] [place] [address] Provider, Luciano Bronson MD Social [...] - [facility] Aiyana ProviderMD - 04/25/2019 6:45 PM [...]
--- OUTSIDE RECORDS SUMMARY | 2025-03-30 09:21 | XMS_ITS | Encounter Summary ---
Author Organization [employer] ([place], [place], [place], [place], [place]) Address [address] [place] [address] Care Team Providers Care Direct Marketing Intern Name Role Phone Unavailable Primary Care Provider Unavailabl e Encounter Details Date Type Department Care Team (Late st Contact Info) Description 04/26/2019 Transcribed Document [facility] Radiology 1 [place] [address] Provider, Luciano Bronson MD Social [...] Cerner Conversion Note - [facility] Aiyana Provider, - 04/26/2019 2:31 PM [...] YOANNA GUERRERO, PT - 04/28/2019 14:54 EST Prison Goals Mobility/Bed Mobility LTG PT Grid Goal [...] 04/28/2019 14:54 EST Electronically signed by [place], [facility] Conversion Train Gate Attendant Cerner at 08/23/2022 11:19 AM CDT documented in this encounter Plan of Treatment Not on file documented as of this encounter Visit Diagnoses Not on filedocumented in this encounter
--- OUTSIDE RECORDS SUMMARY | 2025-03-30 09:21 | XMS_ITS | Encounter Summary ---
Author Organization [employer] ([place], [place], [place], [place], [place]) Address [address] [place] [address] Care Team Providers Care Chicle Grinder Feeder Name Role Phone Unavailable Primary Care Provider Unavailabl e Encounter Details Date Type Department Care Team (Late st Contact Info) Description 05/02/2019 Transcribed Document [facility] Neurology - [facility] [address] [place] [address] Meliza Downs Jr., MD [address] [place] [address] [address] [place] [address] Social History Tobacco Use Types Packs/Day Years [...]
--- OUTSIDE RECORDS SUMMARY | 2025-03-30 09:21 | XMS_ITS | Encounter Summary ---
Author Organization [employer] ([place], [place], [place], [place], [place]) Address [address] [place] [address] Care Team Providers Care Service Director Name Role Phone Unavailable Primary Care Provider Unavailabl e Encounter Details Date Type Department Care Team (Late st Contact Info) Description 04/25/2019 Transcribed Document [facility] Radiology [address] [place] [address] ProviderLuciano MD Social History Tobacco [...] Note - [facility] Aiyana ProviderMD - 04/25/2019 10:00 PM [...]
--- OUTSIDE RECORDS SUMMARY | 2025-03-30 09:21 | XMS_ITS | Clinical Summary ---
Author Organization [facility] Address [address] [place] [address] Care Team Providers Care Design Intern Name Role Phone Ev Augustin VASILE Primary Care Provider [phone] Allergies Active Allergy Reactions Criticality Noted Date [...] Density Scan 1955 [facility]-/Child/Adol SDOH Screenings 1955 ONW-SMGXO-20 Vaccine (#1) 06/23/1956 [facility]- SDOH Screenings 1974 [...] Negative Negative 11/08/2023 4:13 PM EDT [facility] Blood Venous blood specimen / Unknown Venipuncture / Unknown 11/08/2023 1:57 PM EDT 11/08/2023 2:01 PM EDT us Denis Hudson FLIGHT SOFTWARE TEST ENGINEER LAB BLOOD ORDERABLES Final Res ult Performing Organization Address City/State/[facility] Co de Phone Number HEALTHCARE [facility] [address] [place] [address] from Last 3 Months or Most Recently Relevant to [place] [address] Care Teams Design Intern Relationship Specialty Start Date End Date Ev Augustin APRN [address] [place] [address] PCP - General 08/13/20
--- OUTSIDE RECORDS SUMMARY | 2025-03-30 09:21 | XMS_ITS | Encounter Summary ---
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 BOTTLER: Melanie Emmanuel PA-C. ANESTHESIA: Total IV anesthesia. [...] root retraction, dural closure, and wound closure. /[id number] Lane Ortiz Jr, MD RDO/AQ / RDO / MODL /[id number] documented in this encounter Plan of Treatment Not on file documented as of this encounter Visit Diagnoses Not on filedocumented in this encounter
--- OUTSIDE RECORDS SUMMARY | 2025-03-30 09:21 | XMS_ITS | Encounter Summary ---
Author Organization [employer] ([place], [place], [place], [place], [place]) Address [address] [place] [address] Care Team Providers Care Machine Sizer Name Role Phone Unavailable Primary Care Provider Unavailabl e Encounter Details Date Type Department Care Team (Late st Contact Info) Description 04/23/2019 Transcribed Document [facility] Radiology [address] [place] [address] Provider, yvon Bronson MD Social [...] [facility] Aiyana ProviderMD - 04/23/2019 7:04 PM EST [facility] [address] [place] [address] GERTRUDIS DALY :1955 Visit Time:04/23/2019 Your [...] follow up appointment for results. Where: [address] [facility] [address] [place] [id number]- Medications What How Much When Instructions Next [...] activities are safe for you. ??? Take cnbi-jbe-maxgvhm and prescription medicines only as told by [...] 06/25/2001 Document Revised: 11/02/2017 Document Reviewed: 11/02/2017 [employer] Interactive Patient Education ?? 2019 [employer] Magnetic Resonance Imaging Magnetic resonance imaging [...] including vitamins, herbs, eye drops, creams, and jmiw-ghh-nvteeyg medicines. What are the risks? Generally, MRI [...] 03/16/2001 Document Revised: 08/21/2016 Document Reviewed: 05/14/2014 [employer] Interactive Patient Education ?? 2017 [employer] Emergency Awareness and Preventative Care STROKE [...] Assistance with quitting is available by contacting 9-021-QSVENOW. This is a free resource providing counseling, [...] was given the opportunity to ask questions. Patient/Technical Designer Name: Patient/Technical Designer Signature: Relationship to Patient: Clinician/Hospital Technical Designer Signature: Date: Electronically signed by Interface, [facility] Conversion Sap Business Objects Consultant Curtis at 08/23/2022 11:19 AM CDT documented in this encounter Plan of Treatment Not on file documented as of this encounter Visit Diagnoses Not on filedocumented in this encounter
--- OUTSIDE RECORDS SUMMARY | 2025-03-30 09:21 | XMS_ITS | Encounter Summary ---
Author Organization [employer] ([place], [place], [place], [place], [place]) Address [address] [place] [address] Care Team Providers Care Cord Maker Name Role Phone Unavailable Primary Care Provider Unavailabl e Encounter Details Date Type Department Care Team (Late st Contact Info) Description 04/25/2019 Transcribed Document [facility] Radiology [address] [place] [address] Provider, Luciano Bronson MD Social [...] [facility] Aiyana ProviderMD - 04/25/2019 1:05 PM EST [facility] Main OR PACU Summary Primary Physician: MELIZA DOWNS MD-[facility] Finalized Date/Time: 04/25/19 20:10:04 Pt. Name: GERTRUDIS DALY /Sex: 1955 Female Med Rec #: [id number] Physician: MELIZA DOWNS MD-[facility] Financial #: [id number] Pt. Type: I Room/Bed: [facility]/ Admit/Disch: 04/25/19 06:38:00 - Institution: [facility] Main OR [...]
--- OUTSIDE RECORDS SUMMARY | 2025-03-30 09:21 | XMS_ITS | Encounter Summary ---
Author Organization [employer] ([place], [place], [place], [place], [place]) Address [address] [place] [address] Care Team Providers Care Film Or Tape Librarian Name Role Phone Unavailable Primary Care Provider Unavailabl e Encounter Details Date Type Department Care Team (Late st Contact Info) Description 04/26/2019 Transcribed Document [facility] Neurology - [facility] [address] [place] [address] [address] [place] [address] Meliza Downs Jr., MD [address] [place] [address] [address] [place] [address] Social History Tobacco Use Types Packs/Day Years [...]
--- OUTSIDE RECORDS SUMMARY | 2025-03-30 09:21 | XMS_ITS | Encounter Summary ---
Author Organization [employer] ([place], [place], [place], [place], [place]) Address [address] [place] [address] Care Team Providers Care Lathe Set Up Operator Name Role Phone Unavailable Primary Care Provider Unavailabl e Encounter Details Date Type Department Care Team (Late st Contact Info) Description 04/25/[address] [facility] [address] [place] [address] ProviderLuciano MD Social History Tobacco [...] - 04/27/2019 8:44 EST Electronically signed by Luciano [employer] Conversion Regulatory Compliance Officer Cerner at 08/23/2022 11:19 AM CDT documented in this encounter Plan of Treatment Not on file documented as of this encounter Visit Diagnoses Not on filedocumented in this encounter
--- OUTSIDE RECORDS SUMMARY | 2025-03-30 09:21 | XMS_ITS | Encounter Summary ---
Author Organization [employer] ([place], [place], [place], [place], [place]) Address [address] [place] [address] Care Team Providers Care Social Work Associate Name Role Phone Unavailable Primary Care Provider Unavailabl e Encounter Details Date Type Department Care Team (Late st Contact Info) Description 05/02/2019 Transcribed Document [facility] Neurology - [address] [address] Meliza Downs Jr., MD [address] [place] [address] [address] [place] [address] Social History Tobacco Use Types Packs/Day Years [...] 100 mg= 2 Cap, Oral, TID Metamucil Sabine Smooth Texture Sugar Free, 1 Packet, Oral, [...] Percent Man 24 % 05/02/2019 03:02 EST [place] Percent Man 8 % (High) 05/02/2019 03:02 [...]
--- OUTSIDE RECORDS SUMMARY | 2025-03-30 09:21 | XMS_ITS | Encounter Summary ---
Author Organization [employer] ([place], [place], [place], [place], [place]) Address [address] [place] [address] Care Team Providers Care Metrology Specialist Name Role Phone Unavailable Primary Care Provider Unavailabl e Encounter Details Date Type Department Care Team (Late st Contact Info) Description 04/23/2019 Transcribed Document [facility] 1 [place] [address] Provider, Luciano Bronson MD Social [...] - [facility] Aiyana ProviderMD - 04/23/2019 12:37 PM EST Pre Procedure Adult Entered On: 04/23/2019 11:40 EST Performed On: 04/23/2019 11:37 EST by CHRISTOPHER MONTIEL RN Height and Weight, Clinical Dosing Height Source : Stated Height Entry Format : [place] Height, Feet : 5 ft(Converted to: 152 cm, 60 Inch) Height, Inches : 2 Inch(Converted to: 0 ft 2 Inch, 5.08 cm) Clinical Height : 157.48 cm Weight Source : Standing scale Weight Entry Format : [place] Clinical Dosing Weight : 81.82 kg Weight, Pounds : 180 lb Body Surface Area (BSA) : 1.83 m2 Body Mass Index : 33 kg/m2 (HI) [place] Body Weight : 50 kg CHRISTOPHER MONTIEL [...] CHRISTOPHER MONTIEL RN - 04/23/2019 11:37 EST [place] Suicide Severity Rating Scale (C-SSRS) CSSRS Past [...] Navarro-Friend Support Person/Pt Rep Contact Information : [phone] Want Family/Rep/Phys Notified of Admit : No Emergency Contact #1 : . Emergency Contact #1 Phone Number : . Emergency Contact #1 Relationship : . Emergency Contact #2 : . Emergency Contact #2 Phone Number : . Emergency Contact #2 Relationship : . Primary Language : [place] Preferred Communication Mode : Verbal Communication Barrier [...] Scale Risk Level : 0-24 Low Risk [place] Fall Interventions : Adequate lighting, Assistive devices within reach, Bed in low position, Personal items within reach, Reinforced to call for assistance before getting out of bed, Room free of clutter/spills CHRISTOPHER MONTIEL RN - 04/23/2019 11:37 EST Valuables and Belongings Valuables and Belongings : Clothing Clothing : Common streetwear Clothing Disposition : Bedside, With family CHIRSTOPHER MONTIEL RN - 04/23/2019 11:37 EST Pain [...]
--- OUTSIDE RECORDS SUMMARY | 2025-03-30 09:21 | XMS_ITS | Encounter Summary ---
Author Organization [employer] ([place], [place], [place], [place], [place]) Address [address] [place] [address] Care Team Providers Care Fitter Hand Name Role Phone Unavailable Primary Care Provider Unavailabl e Encounter Details Date Type Department Care Team (Late st Contact Info) Description 04/25/2019 Transcribed Document [facility] Radiology 1 [place] [address] Provider, Luciano Bronson MD Social [...] [facility] Aiyana ProviderMD - 04/25/2019 6:44 [...] FLORES JONES OTR/Ofelia - 04/26/2019 13:53 EST Shipping Clerk/Admin Goals, OT Grooming LTG Grid Goal #1 [...] FLORES JONES OTR/Ofelia - 04/26/2019 13:53 EST [place] OT Charges OT Eval Moderate Complexity : 1 FLORES JONES OTR/Ofelia - 04/26/2019 13:53 EST Electronically signed by Luciano Arzate Conversion Tool Grinder Set Up Operator Gear Cerner at 08/23/2022 11:19 AM CDT documented in this encounter Plan of Treatment Not on file documented as of this encounter Visit Diagnoses Not on filedocumented in this encounter
--- OUTSIDE RECORDS SUMMARY | 2025-03-30 09:21 | XMS_ITS | Encounter Summary ---
Author Organization [employer] ([place], [place], [place], [place], [place]) Address [address] [place] [address] Care Team Providers Care Research Neuropsychologist Name Role Phone Unavailable Primary Care Provider Unavailabl e Encounter Details Date Type Department Care Team (Late st Contact Info) Description 04/25/2019 Transcribed Document [facility] Neurology - [facility] [address] [place] [address] [address] [place] [address] Meliza Downs Jr., MD [address] [place] [address] [address] [place] [address] Social History Tobacco Use Types Packs/Day Years [...]
--- OUTSIDE RECORDS SUMMARY | 2025-03-30 09:21 | XMS_ITS | Clinical Summary ---
Author Organization [facility] Address [address] [facility] [address] [place] [address] Care Team Providers Care Ichthyologist Name Role Phone CharliEv RINA Primary Care Provider [phone] Allergies Active Allergy Reactions Criticality Noted Date [...] (eight) hours if needed. Active HYDROcodone-iain taminophen (Barney) 5-325 MG tablet Take 1 tablet by [...] Visit [facility] [address] [place] [address] Nasrin Roque PA [address] [place] [address], [address] [place] [address] Health Maintenance Due Date Last [...] OUT OF NETWORK EFF 04/02/2025 Care Teams Ichthyologist Relationship Specialty Start Date End Date Ev Augustin NP [address] [place] [address] PCP - General 12/26/19
--- OUTSIDE RECORDS SUMMARY | 2025-03-30 09:21 | XMS_ITS | Encounter Summary ---
Author Organization [employer] ([place], [place], [place], [place], [place]) Address [address] [place] [address] Care Team Providers Care Medical Assistant Float Name Role Phone Unavailable Primary Care Provider Unavailabl e Encounter Details Date Type Department Care Team (Late st Contact Info) Description 04/23/2019 Transcribed Document [facility] 1 [place] [address] ProviderLuciano MD Social History Tobacco Use Types [...] activities are safe for you. ??? Take bizb-djk-mxchnuj and prescription medicines only as told by [...] 06/25/2001 Document Revised: 11/02/2017 Document Reviewed: 11/02/2017 C[employer] Interactive Patient Education ? 2019 [employer]. Magnetic Resonance Imaging Magnetic resonance imaging (MRI) [...] including vitamins, herbs, eye drops, creams, and nmtw-kru-rzzohjp medicines. What are the risks? Generally, MRI [...] 05/14/2014 Elsevier Interactive Patient Education ? 2017 [employer] Inc[employer] documented in this encounter Plan of Treatment Not on file documented as of this encounter Visit Diagnoses Not on filedocumented in this encounter
--- OUTSIDE RECORDS SUMMARY | 2025-03-30 09:21 | XMS_ITS | Encounter Summary ---
Author Organization [employer] ([place], [place], [place], [place], [place]) Address [address] [place] [address] Care Team Providers Care Die Engraving Supervisor Name Role Phone Unavailable Primary Care Provider Unavailabl e Encounter Details Date Type Department Care Team (Late st Contact Info) Description 04/23/2019 Transcribed Document [facility] Radiology 1 [place] [address] Provider, Luciano Bronson MD Social [...] - [facility] Aiyana Provider, - 04/23/2019 1:00 PM EST [facility] Main OR PACU Summary Primary Physician: MELIZA DOWNS MD-[facility] Finalized Date/Time: 04/23/19 18:34:36 Pt. Name: GERTRUDIS DALY /Sex: 1955 Female Med Rec #: [id number] Physician: MELIZA DOWNS MD-[facility] Financial #: [id number] Pt. Type: O Room/Bed: Admit/Disch: 04/23/19 10:57:00 - 04/23/19 18:25:00 Institution: [facility] Main OR PACU I Case Times Entry 1 In PACU I 04/23/19 16:50:00 Ready for PACU 04/23/19 18:00:00 Discharge Discharge from PACU 04/23/19 18:03:00 I Last Modified By: Ev Parada RN 04/23/19 18:34:11 [facility] Main OR PACU I Case Times Audit 04/23/19 18:34:11 Crusher: [id number] Modifier: [id number] <+> 1 Ready for PACU Discharge <+> 1 Discharge from PACU I Finalized By: Ev Parada RN Document Signatures Signed By: Ev Parada RN 04/23/19 18:34 Electronically signed by Carito [facility] Conversion Director Career Services Cerner at 08/23/2022 11:19 AM CDT documented in this encounter Plan of Treatment Not on file documented as of this encounter Visit Diagnoses Not on filedocumented in this encounter
--- OUTSIDE RECORDS SUMMARY | 2025-03-30 09:21 | XMS_ITS | Encounter Summary ---
Author Organization [employer] ([place], [place], [place], [place], [place]) Address [address] [place] [address] Care Team Providers Care Tool Design Engineer Name Role Phone Unavailable Primary Care Provider Unavailabl e Encounter Details Date Type Department Care Team (Late st Contact Info) Description 04/25/2019 Transcribed Document [facility] Radiology 1 [place] [address] Provider, yvon Bronson MD Social [...] - [facility] Aiyana ProviderMD - 04/25/2019 1:05 PM EST [facility] Main OR Preop Summary Primary Physician: MELIZA DOWNS MD-[facility] Finalized Date/Time: 04/25/19 13:08:43 Pt. Name: GERTRUDIS DALY /Sex: 1955 Female Med Rec #: [id number] Physician: MELIZA DOWNS MD-[facility] Financial #: [id number] Pt. Type: I Room/Bed: ASA/1 Admit/Disch: 04/25/19 06:38:00 - Institution: [facility] PreOp Case Times Entry 1 In Preop 04/25/19 07:51:00 Ready for Holding n/a Room Patient Ready for 04/25/19 09:28:00 Surgery Patient Out of Preop 04/25/19 11:14:00 Patient Out of n/a Holding Room Last Modified By: CHRISTELLE MCCORD RN 04/25/19 13:08:36 [facility] PreOp Case Times Audit 04/25/19 13:08:36 Truck Repair Service Estimator: EMILIE Modifier: [email or web address] <+> 1 Patient Out of Preop 04/25/19 09:28:42 Truck Repair Service Estimator: EMILIE Modifier: [email or web address] <+> 1 Patient Ready for Surgery Finalized By: CHRISTELLE MCCORD V., RN Document Signatures Signed By: CHRISTELLE MCCORD RN 04/25/19 13:08 Electronically signed by Carito [facility] Conversion Rn Occupational Cerner at 08/23/2022 11:18 AM CDT documented in this encounter Plan of Treatment Not on file documented as of this encounter Visit Diagnoses Not on filedocumented in this encounter
--- OUTSIDE RECORDS SUMMARY | 2025-03-30 09:21 | XMS_ITS | Encounter Summary ---
Author Organization [facility] Address [address] [place] [id number] Care Team Providers Care Project Manager Retail Name Role Phone Danelle Lennon APRN Primary Care Provider [phone] Reason for Visit * Reason Onset Date Comments Shortness of Breath 12/12/2016 Encounter Details Date Type Department Care Team ([facility] st Contact Info) Description 12/12/2016 Telephone [facility] INTERNAL MEDICINE [address] [place] [address] Madelaine Norman, SPEECH PATHOLOGIST [address] [place] [address] Shortness of Breath Social History Tobacco Use [...] documented as of this encounter Care Teams Project Manager Retail Relationship Specialty Start Date End Date Danelle Lennon APRN [address] [place] [address] PCP - General Internal Medicine 06/18/24 documented as of this encounter
--- OUTSIDE RECORDS SUMMARY | 2025-03-30 09:21 | XMS_ITS | Encounter Summary ---
Author Organization [facility] ([place], [place], [place], [place], [place]) Address [address] [place] [address] Care Team Providers Care Executive Legal Secretary Name Role Phone Unavailable Primary Care Provider Unavailabl e Encounter Details Date Type Department Care Team (Late st Contact Info) Description 05/02/2019 Transcribed Document [facility] Radiology 1 [place] [address] ProviderLuciano MD Social History Tobacco Use Types [...] [facility] Aiyana ProviderMD - 05/02/2019 1:32 PM [...] at home: Medicines ??? Take or apply rayn-efb-wmdhmrb and prescription medicines only as told by [...] cannot use soap and water, use hand assistant unit forester. ? Change your bandage as told by [...] 12/26/2008 Document Revised: 08/24/2016 Document Reviewed: 09/06/2015 Webcentrix Interactive Patient Education ? 2019 Elsevier Inc. [...] and water are not available, use hand assistant unit forester. ? Change your dressing as told by [...] or a bad smell. Medicines ??? Take wgra-yte-zwfomvj and prescription medicines only as told by [...] urine clear or pale yellow. ? Take owtv-lai-yzqtoqq or prescription medicines. ? Eat foods that [...] 10/06/2005 Document Revised: 11/02/2016 Document Reviewed: 09/03/2016 ElseMom-stop.com Interactive Patient Education ? 2019 Webcentrix Inc. documented in this encounter Plan of Treatment Not on file documented as of this encounter Visit Diagnoses Not on filedocumented in this encounter
--- OUTSIDE RECORDS SUMMARY | 2025-03-30 09:21 | XMS_ITS | Encounter Summary ---
Author Organization [employer] ([place], [place], [place], [place], [place]) Address [address] [place] [address] Care Team Providers Care Side Door Worker Name Role Phone Unavailable Primary Care Provider Unavailabl e Encounter Details Date Type Department Care Team (Late st Contact Info) Description 04/24/[address] [facility] 1 [place] [address] ProviderLuciano MD Social History Tobacco [...] [facility] Aiyana ProviderMD - 04/24/2019 2:26 PM EST [facility] Authorization Entered On: 04/24/2019 13:27 EST Performed On: 04/24/2019 13:26 EST by FRANCY MILIAN Grinder Machine Setter Primary Insurance Authorization Authorization and Policy Numbers : Insurance 1 Health Plan: [employer] MEDICARE REPL Policy [place]: [id number] Authorization Number: [id number] Insurance Primary Name [facility] [id number] Authorization Status-Primary : Admit approved Authorization Number-Primary : [id number] Authorized Service Begin Date-Primary : 04/25/2019 EST Authorization Comments-Primary : per STAR inpt approved 1 day auth# [id number] Historical Authorization Comments-Primary : No Authorization Comments Found FRANCY MILIAN, Grinder Machine Setter - 04/24/2019 13:26 EST documented in this encounter Plan of Treatment Not on file documented as of this encounter Visit Diagnoses Not on filedocumented in this encounter
--- OUTSIDE RECORDS SUMMARY | 2025-03-30 09:21 | XMS_ITS | Encounter Summary ---
Author Organization [employer] ([place], [place], [place], [place], [place]) Address [address] [place] [address] Care Team Providers Care Stage Set Designer Name Role Phone Unavailable Primary Care Provider Unavailabl e Encounter Details Date Type Department Care Team (Late st Contact Info) Description 04/23/2019 Transcribed Document [facility] [address] [place] [address] Provider, Luciano Bronson MD Social [...] [facility] [place] Aiyana ProviderMD - 04/23/2019 7:03 PM EST [...]
--- OUTSIDE RECORDS SUMMARY | 2025-03-30 09:21 | XMS_ITS | Encounter Summary ---
Author Organization [employer] ([place], [place], [place], [place], [place]) Address [address] [place] [address] Care Team Providers Care Commercial Litigation Paralegal Name Role Phone Unavailable Primary Care Provider Unavailabl e Encounter Details Date Type Department Care Team (Late st Contact Info) Description 04/25/2019 Transcribed Document [facility] Radiology [address] [place] [address] Provider, Luciano Bronson MD Social [...] - [facility] Aiyana ProviderMD - 04/25/2019 6:44 PM EST [...] AGUILA DANIELS, PT - 04/26/2019 13:19 EST [facility] Goals Mobility/Bed Mobility LTG PT [...] AGUILA DANIELS, PT - 04/26/2019 13:19 EST [place] PT Charges PT Eval Low Complexity : 1 AGUILA DANIELS, PT - 04/26/2019 13:19 EST Electronically signed by [facility] Conversion Hospital Unit Clerk Cerner at 08/23/2022 11:19 AM CDT documented in this encounter Plan of Treatment Not on file documented as of this encounter Visit Diagnoses Not on filedocumented in this encounter
--- OUTSIDE RECORDS SUMMARY | 2025-03-30 09:21 | XMS_ITS | Encounter Summary ---
Author Organization [employer] ([place], [place], [place], [place], [place]) Address [address] [place] [address] Care Team Providers Care Nut Roaster Name Role Phone Unavailable Primary Care Provider Unavailabl e Encounter Details Date Type Department Care Team (Late st Contact Info) Description 05/02/2019 Transcribed Document [facility] [address] [place] [address] Provider, Luciano Bronson MD Social History Tobacco Use Types Packs/Day Years Used Date Smoking Tobacco: Never Assessed Comments Unknown Sex and Gender Information Value Date Recorded Sex Assigned at Not on file Legal Sex Female 6:01 PM CDT Gender Identity Not on file Sexual Orientation Not on file documented as of this encounter Miscellaneous Notes * Cerner Conversion Note - [facility] Aiyana ProviderMD - 05/02/2019 1:40 PM EST On Going Discharge Planning Entered On: 05/02/2019 12:41 EST Performed On: 05/02/2019 12:40 EST by ROMELIA MCADAMS RN-Shipping And Receiving WeigherAssistant Clinical Director Progress Note Discharge Arrangements : Patient Post-Acute [...] Post Acute Providers : Yes ROMELIA MCADAMS, RN-Shipping And Receiving Weigher - 05/02/2019 12:40 EST documented in this encounter Plan of Treatment Not on file documented as of this encounter Visit Diagnoses Not on filedocumented in this encounter
--- OUTSIDE RECORDS SUMMARY | 2025-03-30 09:21 | XMS_ITS | Encounter Summary ---
Author Organization [employer] ([place], [place], [place], [place], [place]) Address [address] [place] [address] Care Team Providers Care Plant Changer Name Role Phone Unavailable Primary Care Provider Unavailabl e Encounter Details Date Type Department Care Team (Late st Contact Info) Description 04/25/2019 Transcribed Document [facility] Radiology [address] [place] [address] Provider, Luciano Bronson MD Social [...] [facility] Aiyana ProviderMD - 04/25/2019 10:03 AM [...] Anesthesiologist Procedure Case Attendee Role 2 : strike operations officer Case Attendee 2 : RICARDO Rojas RN Procedure Case Attendee Role 3 : strike operations officer Case Attendee 3 : JACKIE PERALTA RN [...]
--- OUTSIDE RECORDS SUMMARY | 2025-03-30 09:21 | XMS_ITS | Encounter Summary ---
Author Organization [employer] ([place], [place], [place], [place], [place]) Address [address] [place] [address] Care Team Providers Care Terrapin Fisher Name Role Phone Unavailable Primary Care Provider Unavailabl e Encounter Details Date Type Department Care Team (Late st Contact Info) Description 04/25/[address] [facility] [address] [place] [address] ProviderLuciano MD Social History Tobacco [...]
--- OUTSIDE RECORDS SUMMARY | 2025-03-30 09:21 | XMS_ITS | Clinical Summary ---
Author Organization [facility] Address [address] [place] [id number] Care Team Providers Care Tool Repairer Name Role Phone Danelle Lennon APRN Primary Care Provider [phone] Allergies Active Allergy Reactions Criticality Noted Date [...] Date Last Done Comments DXA SCAN 1955 COVID-19 Vaccine (#1) 1961 COLOGUARD 2001 COLON CANCER SCREENING 5 YEA R SIGMOIDOSCOPY 2001 CT COLONOGRAPHY 2001 FECAL OCCULT [...] 10/31/2024 02/19/2024, , 02/08/2018, Additional history exists TDAP/TD [...] other secondary signs of malignancy. Danelle Lennon REAL ESTATE COORDINATOR IMG MAMMOGRAPHY ORDERABLES F inal Result * Microalbumin / Creatinine Urine Ratio - Urine, Clean Catch (06/17/2024 3:48 PM EDT) Microalbumin/C reatinine Ratio 11.5 0.0 - 29.0 mg/g 06/18/2024 12:51 AM EDT [facility] Creatinine, Urine 113.4 mg/dL 06/18/2024 12:51 AM EDT [facility] Microalbumin, Urine 1.3 mg/dL 06/18/2024 12:51 AM EDT [facility] Urine Urine specimen obtained by clean catch procedure / Unknown Collection / Unknown 06/17/2024 3:48 PM EDT 06/17/2024 3:48 PM EDT Bridget Valdez PA-C URINE ORDERABLES Final Resu lt [facility]
[address] [place] [address], * Colonoscopy, Scan (08/20/2023) us Alex Davis [...] - 05/31/2023 3:08 AM EST Performed at: [address] [place] [id number] Director Cost: Lane Haile MD, Phone: [phone] Patient Fasting: Y us Alex Davis MD LAB BLOOD ORDERABLES Final Resu lt [facility] (AMBULATORY) [address] [place] [address], [facility] [address] [place] [address], * (ABNORMAL) Lipid Panel (05/30/2023 10:50 AM [...] 10:5 0 AM EST 05/30/2023 Narrative [facility] ([facility]) - 05/31/2023 3:08 AM EST Performed at: [address] [place] [id number] Director Cost: Lane Haile MD, Phone: [phone] Patient Fasting: Y Alex Davis MD LAB BLOOD ORDERABLES Final Resu lt [facility] ([facility]UL[facility]ORY) [address] [place] [address], [facility] [address] [place] [address], [place] [phone] * SCANNED - EYE EXAM (06/23/2021) Anatomical Region Laterality Modality Other Roc Tracey PA-C CHART REVIEW TABS Final Result * Hepatitis Panel, Acute (12/26/2017 2:04 PM EDT) Hepatitis B Surface Ag Non-Reacti ve Non-Reacti ve 12/26/2017 7:06 PM EDT [facility] Hep A IgM Non-Reacti ve Non-Reacti ve 12/26/2017 7:06 PM EDT [facility] Comment:Results may be false ly decreased if patient taking Biotin. Hep B C IgM Non-Reacti ve Non-Reacti ve 12/26/2017 7:06 PM EDT [facility] Comment:Results may be false ly decreased if patient taking Biotin. Hepatitis C Ab Non-Reacti ve Non-Reacti ve 12/26/2017 7:06 PM EDT [facility] Blood Venipuncture / Unknown 12/26/2017 2:04 PM EDT 12/26/2017 2:04 PM EDT us Guerline Randall REAL ESTATE COORDINATOR LAB BLOOD ORDERABLES Final Res ult [facility]
[address] [place] [address], [place] [phone] from Last 3 Months or Most Recently Relevant to Health Maintenance Insurance [facility] Medicare [employer] PPO Care Teams Tool Repairer Relationship Specialty Start Date End Date Danelle Lennon APRN [address] [place] [address] AIMEE MARIE [address] PCP - General Internal Medicine 06/18/24
--- OUTSIDE RECORDS SUMMARY | 2025-03-30 09:21 | XMS_ITS | Encounter Summary ---
Author Organization [facility] Address [address] [place] [address] Care Team Providers Care Tool Grinder Name Role Phone Danelle Lennon APRN Primary Care Provider [phone] Reason for Visit * Reason Comments Med Refill Encounter Details Date Type Department Care Team (Late st Contact Info) Description 10/08/2023 Refill [facility] FAMILY MEDICINE [address] [place] [address] Alex Davis MD [address] [place] [address] Anxiety and depression; Postlaminectomy syndrome [...] documented as of this encounter Care Teams Tool Grinder Relationship Specialty Start Date End Date Danelle Lennon APRN [address] [place], [place] [id number] PCP - General Internal Medicine 06/18/24 documented as of this encounter
--- OUTSIDE RECORDS SUMMARY | 2025-03-30 09:21 | XMS_ITS | Encounter Summary ---
Author Organization [employer] ([place], [place], [place], [place], [place]) Address [address] [place] [address] Care Team Providers Care Clearance Center Manager Name Role Phone Unavailable Primary Care Provider Unavailabl e Encounter Details Date Type Department Care Team (Late st Contact Info) Description 05/01/2019 Transcribed Document [facility] [address] [place] [address] Provider, Luciano Bronson MD Social [...] [facility] Aiyana ProviderMD - 05/01/2019 3:26 PM EST On Going Discharge Planning Entered On: 05/01/2019 14:26 EST Performed On: 05/01/2019 14:26 EST by MERLINE NEWMAN RN-Disability AttorneyFolding Machine Feeder Progress Note Discharge Arrangements : Patient Post-Acute Information Patient Name: GERTRUDIS DALY Gender: Female : [birth year] Age: 63 Years No Post-Acute Placement(s) Listed No Post-Acute Service(s) Listed No [place] Referral(s) Listed Discharge Options Discussed with Patient : Short term rehabilitation Barriers to Discharge Identified : Clinical Condition of Patient Barriers to Discharge Unresolved : Clinical Condition of Patient MERLINE NEWMAN RN-Disability Attorney - 05/01/2019 14:26 EST Narrative Progress Note Narrative Progress Note : [facility] precert still pend Historical Progress Note : Urology consulted for neurogenic bladder. Pt's choices of [facility] and [facility] are not in network with pt's payor source. D/W pt at bedside. She has chose [facility] now. Referral sent via Tc and informed Colleene. Precert intitated for acute. CM will continue to follow. ROMELIA MCADAMS RN-Disability Attorney - 04/29/19 15:26:05 MERLINE NEWMAN, RN-Disability Attorney - 05/01/2019 14:26 EST Electronically signed by Carito [facility] Conversion Recovery Agent Cerner at 08/23/2022 11:19 AM CDT documented in this encounter Plan of Treatment Not on file documented as of this encounter Visit Diagnoses Not on filedocumented in this encounter
--- OUTSIDE RECORDS SUMMARY | 2025-03-30 09:21 | XMS_ITS | Encounter Summary ---
Author Organization [employer] ([place], [place], [place], [place], [place]) Address [address] [place] [address] Care Team Providers Care Bee Raiser Name Role Phone Unavailable Primary Care Provider Unavailabl e Encounter Details Date Type Department Care Team (Late st Contact Info) Description 04/25/2019 Transcribed Document [facility] [address] [place] [address] Provider, Luciano Bronson MD Social [...] [facility] Aiyana ProviderMD - 04/25/2019 7:38 AM EST [...] mom Support Person/Pt Rep Contact Information : [phone] Want Family/Rep/Phys Notified of Admit : No Emergency Contact #1 : Gakonaamanda Gonzalez Emergency Contact #1 cell Emergency Contact #1 Relationship : Emergency Contact #2 : Kandi Burt Emergency Contact #2 cell Emergency Contact #2 Relationship : daughter Primary Language : Khmer Preferred Communication Mode : Verbal Communication Barrier [...] Scale Risk Level : 25-45 Medium Risk [place] Fall Interventions : Adequate lighting, Assistive devices [...] Source : Measured Height Entry Format : [place] Height, Feet : 5 ft(Converted to: 152 cm, 60 Inch) Height, Inches : 2 Inch(Converted to: 0 ft 2 Inch, 5.08 cm) Clinical Height : 157.48 cm Weight Source : Standing scale Weight Entry Format : [place] Clinical Dosing Weight : 82.14 kg Weight, Pounds : 180.7 lb Body Surface Area (BSA) : 1.83 m2 Body Mass Index : 33.1 kg/m2 (HI) [place] Body Weight : 50 kg Daniela Buckner [...] Daniela Buckner RN - 04/25/2019 19:52 EST [place] Suicide Severity Rating Scale (C-SSRS) CSSRS Past [...] 19:52 EST Electronically signed by Carito [facility] Conversion Supervisor Special Services Cerner at 08/23/2022 11:19 AM CDT documented in this encounter Plan of Treatment Not on file documented as of this encounter Visit Diagnoses Not on filedocumented in this encounter
--- OUTSIDE RECORDS SUMMARY | 2025-03-30 09:21 | XMS_ITS | Encounter Summary ---
Author Organization [employer] ([place], [place], [place], [place], [place]) Address [address] [place] [address] Care Team Providers Care Sr. Media Manager Name Role Phone Unavailable Primary Care Provider Unavailabl e Encounter Details Date Type Department Care Team (Late st Contact Info) Description 05/01/2019 Transcribed Document [facility] [address] [place] [address] ProviderLuciano MD Social History Tobacco [...] [facility] Aiyana ProviderMD - 05/01/2019 6:00 PM EST Chart Check - Review Order Profile Entered On: 05/01/2019 18:11 EST Performed On: 05/01/2019 17:00 EST by Nicolasa Abernathy RN Chart Check Powerplans Initiated/Discontinued as Appropriate : Yes All Active Orders Reviewed : Yes Nicolasa Abernathy RN - 05/01/2019 18:11 EST Electronically signed by Carito [facility] Conversion Pyrometer Operator Cerner at 08/23/2022 11:19 AM CDT documented in this encounter Plan of Treatment Not on file documented as of this encounter Visit Diagnoses Not on filedocumented in this encounter
== END 2025-03-30 23:59 ==
LOC: RAD 09:09
PROVIDERS: PCP Nurse Practitioner Family; Visit Provider Nurse Practitioner Family
DX: Z13.820 Encounter for screening for osteoporosis (principal); Z78.0 Asymptomatic menopausal state
CPT/HCPCS: 77080